=== PATIENT | female | born 1990 | race Caucasian/White ===

== ENCOUNTER 2017-10-22 13:34 | Emergency (ER) | payer OTHER ==
[~2017-10-22] VITALS: Ht 177.8 cm; Wt 140.6 kg
[~2017-10-22 13:34] MED LIST: IRON325 M1 PO; LEVOXYL75 MCG PO
[2017-10-22] MEDS ORDERED: CYCLOBENZAPRINE10 MG PO (13:51)
== END 2017-10-22 15:13 | disposition home or self-care (01) ==
LOC: ED 13:34
DX: S06.0X0A Concussion without loss of consciousness, initial encounter (principal); S16.1XXA Strain of muscle, fascia and tendon at neck level, initial encounter; E03.9 Hypothyroidism, unspecified; Z90.89 Acquired absence of other organs; Z88.5 Allergy status to narcotic agent; Z79.899 Other long term (current) drug therapy; V49.9XXA Car occupant (driver) (passenger) injured in unspecified traffic accident, initial encounter; Y92.69 Other specified industrial and construction area as the place of occurrence of the external cause; Y99.0 Civilian activity done for income or pay
CPT/HCPCS: 70450; 72040; 99284

== ENCOUNTER 2018-05-31 07:49 | Emergency (ER) | payer OTHER ==
[~2018-05-31] VITALS: Ht 177.8 cm; Wt 145.2 kg
--- OUTSIDE RECORDS SUMMARY | ~2018-05-31 | XMS | Encounter Summary ---
Demographics + + + | Address | [address] | | | [place] [address] | + + + | Home Phone | | + + + | Preferred Language | Unknown | + + + | Marital Status | Single | + + + | Baptism Affiliation | Unknown | + + + | Race | Unknown | + + + | Ethnic Group | Unknown | + + + Author + + + | Author | [facility] | | | and [place] | + + + | Organization | [facility] | | | and [place] | + + + | Address | Unknown | + + + | Phone | Unavailable | + + + Support + + + + + | Name | Relationship | Address | Phone | + + + + + | Evelyn Suh | ECON | [place] | | + + + + + Care Team Providers + +------+ + | Care Filter Changing Technician Name | Role | Phone | + +------+ + | Erika Ernst DO | PCP | Unavailable | + +------+ + Reason for Visit + + + | Reason | Comments | + + + | Lab Results | | + + + Encounter Details +--------+ + + + + | Date | Type | Department | Care Team | Description | +--------+ + + + + | 03/15/ | Telephone | [facility] | Veronica Huerta, | Lab Results | | 2018 | | [facility] | BUSINESS PROCESS SPECIALIST | | | | | [facility] [address] [place], | | | | | | [place] [address] | | | | | | [phone] | | | +--------+ + + + + Social History + +-------+ +--------+------+ | Tobacco Use | Types | Packs/Day | Years | Date | | | | | Used | | + +-------+ +--------+------+ | Never Smoker | | | | | + +-------+ +--------+------+ + +---+---+---+ | Smokeless Tobacco: | | | | | Never Used | | | | + +---+---+---+ + + +---------+ + | Alcohol Use | Drinks/We | oz/Week | Comments | | | ek | | | + + +---------+ + | No | | | | + + +---------+ + + + + | Sex Assigned at | Date Recorded | | | | + + + | Not on file | | + + + as of this encounter Plan of Treatment +--------+---------+ + + + | Date | Type | Specialty | Care Team | Description | +--------+---------+ + + + | 06/06/ | Office | Primary Care | Erika Ernst, | | | 2017 | Visit | | DO [address] [place] | | | | | | [place] [address] | | | | | | [phone] | | | | | | | | +--------+---------+ + + + | 06/27/ | Office | Primary Care | Erika Ernst, | | | 2017 | Visit | | DO [address] [place] [address] | | | | | | [place] [address] | | | | | | [phone] | | | | | | | | +--------+---------+ + + + as of this encounter Visit Diagnoses Not on filein this encounter"
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
--- OUTSIDE RECORDS SUMMARY | ~2018-05-31 | XMS | Encounter Summary ---
Demographics + + + | Address | [address] | | | [place] [address] | + + + | Home Phone [...] + + + | Author | [facility] | | | and [place] | + + + | Organization | [facility] | | [...] Team Providers + +------+ + | Care Ticket Manager Name | Role | Phone | + +------+ + | Erika Ernst DO | PCP | Unavailable | + +------+ + Reason for Visit + + + | Reason | Comments | + + + | Follow-up | cough | + + + Encounter Details +--------+---------+ + + + | Date | Type | Department | Care Team | Description | +--------+---------+ + + + | 05/16/ | Office | [facility] | Erika Ernst, | Asthma due to | | 2018 | Visit | [facility] | DO [address] | environmental | | | | [facility] | [facility] [address] | allergies (Primary | | | | [address] [place], | [phone] | Dx); Nausea | | | | [place] [address] | | | | | | [phone] | | | +--------+---------+ + + + [...] + + + | Blood Pressure | 140/98 | 05/16/2018 0802 PDT | + + + + | Pulse | 77 | 05/16/2018801 PDT | + + + + | Temperature | 36.3 C (97.4 F) | 05/16/2018801 PDT | + + + + | Respiratory Rate | 16 | 05/16/2018801 PDT | + + + + | Oxygen Saturation | 100% | 05/16/2018801 PDT | + + + + | Inhaled Oxygen | - | - | | Concentration | | | + + + + | Weight | 166.5 kg (367 lb) | 05/16/2018801 PDT | + + + + | Height | 177.8 cm (5' 10") | 05/16/2018 0802 PDT | + + + + | Body Mass Index | 52.66 | 05/16/2018 0802 PDT | + + + + in this encounter Progress Notes Erika Ernst DO - 05/16/2018 0800 PDTFormatting of this note may be different from the original. Subjective: Patient ID: Andrea Suh is a 28 y.o. female. Here to FU on her recent bronchitis. States she feels like she cleared the infection but th [place] really bothering her asthma. She states the prednisone we did recently did help. We tried increasing the dose on her steroid inhaler but it made her fee l nauseated. She states she does not think she is but she is not sure and the nause a could have been from something other than the inhaler. She agrees to test to be sure. She has some increase in the BP today but just had a coughing episode; we will monitor . States the cough is non-productive and infrequent, it is mostly her intermittent wheeze fr om the smoke that is the issue. Pox 100% Review of Systems Constitutional: Negative. HENT: Negative. Eyes: Negative. Respiratory: Positive for wheezing. Cardiovascular: Negative. Gastrointestinal: Nausea with inhaler use as above Skin: Negative. Allergic/Immunologic: Positive for environmental allergies. Social History Social History Marital status: Single Spouse name: N/A Number of children: N/A Years of education: N/A Occupational History Not on file. Social History Main Topics Smoking status: Never Smoker Smokeless tobacco: Never Used Alcohol use No Drug use: No Sexual activity: Yes Other Topics Concern Not on file Social History Narrative No narrative on file Outpatient Encounter Prescriptions as of 05/16/2018 Medication Sig Dispense Refill amLODIPine (NORVASC) 5 mg tablet Take 1 tablet by mouth Daily. 30 tablet 11 azithromycin (ZITHROMAX) 500 MG tablet Take 500 mg daily x 7 days 7 tablet 0 beclomethasone (QVAR) 80 mcg/puff inhaler Inhale 1 puff into the lungs 2 times daily. 1 Inhaler 11 Cholecalciferol (VITAMIN D3) 10669 units TABS Take 1 tablet by mouth Once a week for 16 doses. 16 tablet 0 ferrous sulfate 325 mg tablet Take by mouth. fexofenadine (JOSÉ ANTONIO ALLERGY) 180 mg tablet Take by mouth. montelukast (SINGULAIR) 10 mg tablet Take by mouth. predniSONE (DELTASONE) 10 mg tablet Take by mouth 6 tablets (60 mg) days 1-5; then 4 ta blets (40 mg) on day 6; then 3 tablets (30 mg) on day 7; then 2 tablets (20 mg) on day 8; th en 1 tablet (10 mg) on day 9; and 1/2 tablet (5 mg) on day 10 then stop 41 tablet 0 [DISCONTINUED] predniSONE (DELTASONE) 10 mg tablet Take by mouth 6 tablets (60 mg) days 1-5; then 4 tablets (40 mg) on day 6; then 3 tablets (30 mg) on day 7; then 2 tablets (20 m g) on day 8; then 1 tablet (10 mg) on day 9; and 1/2 tablet (5 mg) on day 10 then stop 41 ta blet 0 VENTOLIN HFA 108 (90 Base) MCG/ACT inhaler INSTILL 2 PUFFS BY MOUTH EVERY 4 TO 6 HOURS NEEDED 18 g 11 No facility-administered encounter medications on file as of 05/16/2018. Allergies Allergen Reactions Latex Rash Hydrocodone Hives Uncoded Nonscreenable Allergen Other (See Comments) Other reaction(s): Proclivity to C-diff with certain antibiotics Adhesive & Tape Rash Objective: BP (!) 140/98 | Pulse 77 | Temp 36.3 C (97.4 F) (Temporal) | Resp 16 | Ht 1.778 m ( 5' 10") | Wt (!) 166.5 kg (367 lb) | LMP (LMP Unknown) | SpO2 100% | ? No | BMI 52.66 kg/m Physical Exam Constitutional: She is oriented to person, place, and time. She appears well-developed and well-nourished. No distress. HENT: Head: Normocephalic and atraumatic. Right Ear: External ear normal. Left Ear: External ear normal. Mouth/Throat: Oropharynx is clear and moist. Bilateral TM's clear Eyes: Pupils are equal, round, [...] normal. No respiratory distress. She has wheezes. Exp wheeze soft Musculoskeletal: She exhibits no edema. Lymphadenopathy: She has no cervical adenopathy. Neurological: She is alert and oriented to person, place, and time. Skin: Skin is warm and dry. No rash noted. Psychiatric: She has a normal mood and affect. Her behavior is normal. Judgment and thought content normal. Assessment: 1. Asthma due to environmental allergies 2. Nausea , Urine, Qual Plan: Urine test though the nausea most likely from the inhaler. She will continue the lower dose qvar and continue her rescue inhaler and we will do another round of oral steroid . in this encounter Plan of Treatment +--------+---------+ + + + | Date | Type | Specialty | Care Team | Description | +--------+---------+ + + + | 06/06/ | Office | Primary Care | Erika Ernst, | | | 2017 | Visit | | DO [address] | | | | | | [place] [address] | | | | | | [phone] | | | | | | | | +--------+---------+ + + + | 06/27/ | Office | Primary Care | Erika Ernst, | | | 2017 | Visit | | DO [address] | | | | | | [place] [address] | | | | | | [phone] | | | | | | | | +--------+---------+ + + + as of this encounter Results , Urine, Qual (05/16/2018 0832) + + + + + | Component | Value | Ref Range | Performed At | + + + + + | HCG SCREEN, URINE | Negative | Negative | [facility] | | | | | [facility] | | | | | [facility] | | | | | [facility] | | | | | LAB | + + + + + + + | Specimen | + + | Urine | + + + + + + + | Performing | Address | City/State/Zipcode | Phone Number | | Organization | | | | + + + + + | [facility] | [address] [place] [address] | [place] [address] | [phone] | | [facility] | | | | | [facility] | | | | + + + + + in this encounter Visit Diagnoses + + | Diagnosis | + + | Asthma due to environmental allergies - Primary | + + | Nausea | + + | Nausea alone | + +
--- OUTSIDE RECORDS SUMMARY | ~2018-05-31 | XMS | Encounter Summary ---
Demographics + + + | Address | [address] | | | [place] [address] | + + + | Home Phone [...] + + + | Author | [facility] | | | and [place] | + + + | Organization | [facility] | | | [...] Team Providers + +------+ + | Care Grinding Machine Operator Name | Role | Phone [...] + + + + | 03/20/ | Telephone | [facility] | Veronica Huerta, | Lab Results | | 2018 | | [facility] | STUDENT MINISTRY PASTOR | | | | | [facility] [address] | | | | | | [address] [place], | | | | | | [place] [address] | | | | | | [phone] | | | +--------+ + + + [...] | | | | | [place] [address] | | | | | | [phone] | | | | | | | | +--------+---------+ + + + | 06/27/ | Office | Primary Care | Erika Ernst, | | | 2017 | Visit | | DO [address] [place] [address] | | | | | | [place] [address] | | | | | | [phone] | | | | | | | | +--------+---------+ + + + as of this encounter Visit Diagnoses Not on filein this encounter"
--- OUTSIDE RECORDS SUMMARY | ~2018-05-31 | XMS | Encounter Summary ---
Demographics + + + | Address | [address] | | | [place] [address] | + + + | Home Phone [...] + | Evelyn Suh | ECON | [place] | | + + + + + Care Team Providers + +------+ + | Care Upholstery Department Supervisor Name | Role | Phone | + +------+ + | Erika Ernst DO | PCP | Unavailable | + +------+ + Encounter Details +--------+ + + + + | Date | Type | Department | Care Team | Description | +--------+ + + + + | 03/14/ | [facility] | [facility] | Erika Ernst, | Right foot pain | | 2018 | Encounter | [facility] | DO [address] | | | | | [address] | [place] [address] | | | | | [place] | [phone] | | | | | [address] | | | | | | [phone] | | | +--------+ + + + [...] + + + as of this encounter Medications at Time of Discharge + + +--------+---------+ + + | Medication | Sig. | Disp. | Refills | Start | End Date | | | | | | Date | | + + +--------+---------+ + + | ferrous sulfate | Take by mouth. | | | 06/30/20 | | | 325 mg tablet | | | | 17 | | + + +--------+---------+ + + | fexofenadine | Take by mouth. | | | 04/08/20 | | | (JOSÉ ANTONIO ALLERGY) | | | | 17 | | | 180 mg tablet | | | | | | + + +--------+---------+ + + | montelukast | Take by mouth. | | | 02/24/20 | | | (SINGULAIR) 10 mg | | | | 17 | | | tablet | | | | | | + + +--------+---------+ + + | albuterol (PROAIR | Inhale into the | | | 10/12/19 | | | HFA) 90 mcg/puff | lungs. | | | 17 | 8 | | inhaler | | | | | | + + +--------+---------+ + + | ipratropium | Inhale into the | | | 12/18/19 | | | (ATROVENT HFA) 17 | lungs. | | | 17 | 8 | | mcg/puff inhaler | | | | | | + + +--------+---------+ + + | levothyroxine | Take by mouth. | | | 10/13/19 | | | (SYNTHROID) 75 MCG | | | | 17 | 8 | | tablet | | | | | | + + +--------+---------+ + + | lisinopril | Take 1 tablet by | 30 | 11 | 03/02/20 | | | (PRINIVIL, ZESTRIL) | mouth Daily. | tablet | | 18 | 8 | | 10 mg tablet | | | | | | + + +--------+---------+ + + as of this encounter Plan of Treatment +--------+---------+ + + + | Date | Type | Specialty | Care Team | Description | +--------+---------+ + + + | 06/06/ | Office | Primary Care | Erika Ernst, | | | 2017 | Visit | | DO [address] | | | | | | [place] [address] | | | | | | [phone] | | | | | | | | +--------+---------+ + + + | 06/27/ | Office | Primary Care | Erika Ernst, | | | 2017 | Visit | | DO [address] | | | | | | [place] [address] | | | | | | [phone] | | | | | | | | +--------+---------+ + + + as of this encounter Procedures + +--------+ + + + | Procedure Name | Priori | Date/Time | Associated Diagnosis | Comments | | | ty | | | | + +--------+ + + + | XR FOOT RIGHT 2 VW | Routin | 03/14/2018 | Right foot pain | Results for this | | | e | 1604 PDT | | procedure are in the | | | | | | results section. | + +--------+ + + + in this encounter Results XR Foot Right [...] of the medial foot. Age appropriate bone rn examiner al density. | | | |IMPRESSION: [...] | | | + +---------+ + + in this encounter Visit Diagnoses + + | Diagnosis | + + | Right foot pain | + + | Pain in limb | + +"
--- OUTSIDE RECORDS SUMMARY | ~2018-05-31 | XMS | Encounter Summary ---
Demographics + + + | Address | [address] | | | [place] [address] | + + + | Home Phone [...] Team Providers + +------+ + | Care Cisco Certified Network Professional Name | Role | Phone | + +------+ + | Erika Ernst DO | PCP | Unavailable | + +------+ + Reason for Visit +--------+ + | Reason | Comments | +--------+ + | Other | regarding Workmans Comp | +--------+ + Encounter Details +--------+ + + + + | Date | Type | Department | Care Team | Description | +--------+ + + + + | 03/15/ | Telephone | [facility] | Erika Ernst, | Other (regarding | | 2018 | | [facility] | DO [address] | Workmans Comp) | | | | MEDICAL [facility] [address] | [place] [address] | | | | | [address] [place], | [phone] | | | | | [place] [address] | | | | | | [phone] | | | +--------+ + + + [...] | | | | | [place] [address] | | | | | | [phone] | | | | | | | | +--------+---------+ + + + | 06/27/ | Office | Primary Care | Erika Ernst, | | | 2017 | Visit | | DO [address] | | | | | | [place] [address] | | | | | | [phone] | | | | | | | | +--------+---------+ + + + as of this encounter Visit Diagnoses Not on filein this encounter"
--- OUTSIDE RECORDS SUMMARY | ~2018-05-31 | XMS | Encounter Summary ---
Demographics + + + | Address | [address] | | | [place] [address] | + + + | Home Phone [...] Team Providers + +------+ + | Care Boat Captain Name | Role | Phone | + [...] + + | Authorized | Specialty | Behavioral | Diagnoses | [facility] | | | Services | Health | PTSD | Erika Salter DO | [facility] & | | | Required | | (post-trauma | [address] | [place] | | | | | tic stress | [place], | [place] | | | | | disorder) | [place] [address] | [address] | | | | | Anxiety | Phone: | [place], [place] | | | | | | [phone] | [address] | | | | | | Fax: | Phone: | | | | | | [phone] | [phone] | | | | | | | Fax: | | | | | | | [phone] | + + + + + + + Reason for Visit +--------+ + | Reason | Comments | +--------+ + | Other | wants [employer] paperwork to give her job | +--------+ + Encounter Details +--------+---------+ + + + | Date | Type | Department | Care Team | Description | +--------+---------+ + + + | 05/29/ | Office | [facility] | Erika Ernst, | Asthma due to | | 2017 | Visit | [facility] | DO [address] | environmental | | | | [facility]ICAL [facility] [address] | [facility] [place] [address] | allergies (Primary | | | | [address] [place], | [phone] | Dx); PTSD | | | | [place] [address] | | (post-traumatic | | | | [phone] | | stress disorder); | | | [...] + | Blood Pressure | 130/90 | 05/29/20181508 PDT | + + + + | Pulse | 80 | 05/29/20181508 PDT | + + + + | Temperature | - | - | + + + + | Respiratory Rate | 16 | 05/29/20181508 PDT | + + + + | Oxygen Saturation | 98% | 05/29/20181508 PDT | + + + + | Inhaled Oxygen | - | - | | Concentration | | | + + + + | Weight | 166.5 kg (367 lb) | 05/29/2018 1509 PDT | + + + + | Height | 167.6 cm (5' 6") | 05/29/2018 1509 PDT | + + + + | Body Mass Index | 59.24 | 05/29/2018 1509 PDT | + + + + in this encounter Progress Notes Erika Ernst DO - 05/29/2018 1500 PDTFormatting of this note may be different [...] and was better but now with work s jourdan needs to start with a therapist again. She states the therapist she was seeing in [facility] [place] has moved. We will refer her to Radha Lamb her in [place]. She states anxiety has bee n a [...] daily. 30 tablet 0 Cholecalciferol (VITAMIN D3) 22799 units TABS Take 1 tablet by mouth [...] one week. Referral to Radha Lamb at [facility] for mental health therapy. in this encounter Plan of Treatment +--------+---------+ + + + | Date | Type | Specialty | Care Team | Description | +--------+---------+ + + + | 06/06/ | Office | Primary Care | Erika Ernst, | | | 2017 | Visit | | DO [address] | | | | | | [place], [place] [address] | | | | | | [phone] | | | | | | | | +--------+---------+ + + + | 06/27/ | Office | Primary Care | Erika Ernst, | | | 2017 | Visit | | DO [address] | | | | | | [place] [address] | | | | | | [phone] | | | | | | | | +--------+---------+ + + + + +--------+ + + | Name | Priori | Associated Diagnoses | Order Schedule | | | ty | | | + +--------+ + + | Behavioral Health, External - AMB | Routin | PTSD | Ordered: 05/29/2018 | | Referral | e | (post-traumatic | | | | | stress disorder) | | | | | Anxiety | | + +--------+ + + as of this encounter Visit Diagnoses + + | Diagnosis | + + | Asthma due to environmental allergies - Primary | + + | PTSD (post-traumatic stress disorder) | + + | Posttraumatic stress disorder | + + | Anxiety | + + | Anxiety state, unspecified | + +
--- OUTSIDE RECORDS SUMMARY | ~2018-05-31 | XMS | Encounter Summary ---
Demographics + + + | Address | [address] | | | [place] [address] | + + + | Home Phone [...] Team Providers + +------+ + | Care Frozen Yogurt Maker Name | Role | Phone | [...] | +--------+ + + + + | 05/16/ | Telephone | [facility] [facility] | Veronica Huerta, | Lab Results | | 2018 | | [facility] | HVAC CONTROLS TECHNICIAN | | | | | MEDICAL CLINIC [address] | | | | | | [address] [place], | | | | | | [place] [address] | | | | | | [phone] | | | +--------+ + + + [...] | | | | | [place] [address] | | | | | | [phone] | | | | | | | | +--------+---------+ + + + | 06/27/ | Office | Primary Care | Erika Ernst, | | | 2017 | Visit | | DO [address] [place] [address] | | | | | | [place] [address] | | | | | | [phone] | | | | | | | | +--------+---------+ + + + as of this encounter Visit Diagnoses Not on filein this encounter"
--- OUTSIDE RECORDS SUMMARY | ~2018-05-31 | XMS | Encounter Summary ---
Demographics + + + | Address | [address] | | | [place] [address] | + + + | Home Phone [...] Providers + +------+ + | Care Power House Control Room Operator Name | Role | Phone | [...] | | | MEDICAL CLIN[facility] [address] | [place] [address] | allergies (Primary | | | | [address] [place], | [phone] | Dx); Nausea | | | | [place] [address] | | | | | | [phone] | | | +--------+---------+ + + + [...] daily. 1 Inhaler 11 Cholecalciferol (VITAMIN D3) 71562 units TABS Take 1 tablet by mouth [...] | | | | | [place] [address] | | | | | | [phone] | | | | | | | | +--------+---------+ + + + | 06/27/ | Office | Primary Care | Erika Ernst, | | | 2017 | Visit | | DO [address] | | | | | | [place] [address] | | | | | | [phone] | | | | | | | [...] | REGIONAL | | | | | [facility] | | | | | LAB | + + + + + + + | Specimen | + + | Urine | + + + + + + + | Performing | Address | City/State/Zipcode | Phone Number | | Organization | | | | + + + + + | [facility] | [address] [place] [address] | [place] [address] | [phone] | | [facility] | | | | | [facility] | | | | + + + + + in this encounter Visit Diagnoses + + | Diagnosis | + + | Asthma due to environmental allergies - Primary | + + | Nausea | + + | Nausea alone | + +
--- OUTSIDE RECORDS SUMMARY | ~2018-05-31 | XMS | Encounter Summary ---
Demographics + + + | Address | [address] | | | [place] [address] | + + + | Home Phone [...] | + + + + + | aCrol Suhhy | ECON | [place] | | + + + + + Care Team Providers + +------+ + | Care It Engineer Name | Role | Phone | [...] | | | | disorder) | [place] [address] | [address] | | | | | Anxiety | Phone: | [place], [place] | | | | | | [phone] | [address] | | | | | | Fax: | Phone: | | | | | | [phone] | [phone] | | | | | | | Fax: | | | | | | | [phone] | + + + + + + [...] | | | MEDICAL CLINIC [address] | [facility] [place] [address] | allergies (Primary | | | | [address] [place], | [phone] | Dx); PTSD | | | | [place] [address] | | (post-traumatic | | | | [phone] | | stress disorder); | | | [...] states the therapist she was seeing in [facility] o has moved. We will refer her to Radha Lamb her in [place]. She states anxiety has bee n a [...] daily. 30 tablet 0 Cholecalciferol (VITAMIN D3) 38185 units TABS Take 1 tablet by mouth [...] one week. Referral to Radha Lamb at [facility] for mental health therapy. in this encounter Plan of Treatment +--------+---------+ + + + | Date | Type | Specialty | Care Team | Description | +--------+---------+ + + + | 06/06/ | Office | Primary Care | Erika Ernst, | | | 2017 | Visit | | DO [address] | | | | | | [place], [place] [address] | | | | | | [phone] | | | | | | | | +--------+---------+ + + + | 06/27/ | Office | Primary Care | Erika Ernst, | | | 2017 | Visit | | DO [address] | | | | | | [place] [address] | | | | | | [phone] | | | | | | | [...]
--- OUTSIDE RECORDS SUMMARY | ~2018-05-31 | XMS | Encounter Summary ---
Demographics + + + | Address | [address] | | | [place] [address] | + + + | Home Phone [...] Providers + +------+ + | Care Certified Diabetes Educator Name | Role | Phone | [...] 05/09/ | Office | [facility] [facility] | Erika Ernst, | Acute bronchitis, | | 2018 | Visit | [facility] | DO [address] | unspecified organism | | | | MEDICAL CLINIC [address] | [place] [address] | (Primary Dx); | | | | [address] [place], | [phone] | Asthma due to | | | | [place] [address] | | environmental | | | | [phone] | | allergies | +--------+---------+ + + [...] | Blood Pressure | 144/80 | 05/09/2018 1442 PDT | + + + + | Pulse | 72 | 05/09/20181441 PDT | + + + + | Temperature | 36.7 C (98 F) | 05/09/20181441 PDT | + + + + | Respiratory Rate | 16 | 05/09/20181441 PDT | + + + + | Oxygen Saturation | 98% | 05/09/20181441 PDT | + + + + | Inhaled Oxygen | - | - | | Concentration | | | + + + + | Weight | 166.5 kg (367 lb) | 05/09/20181441 PDT | + + + + | Height | 177.8 cm (5' 10") | 05/09/2018 1442 PDT | + + + + | Body Mass Index | 52.66 | 05/09/2018 1442 PDT | + + + + in this encounter Progress Notes Erika Ernst DO - 05/09/2018 1430 PDTFormatting of this note may be different [...] daily. 1 Inhaler 11 Cholecalciferol (VITAMIN D3) 38120 units TABS Take 1 tablet by mouth [...] continue inhalers and take in extra fluids. in this encounter Plan of Treatment +--------+---------+ + + + | Date | Type | Specialty | Care Team | Description | +--------+---------+ + + + | 06/06/ | Office | Primary Care | Erika Ernst, | | | 2017 | Visit | | DO [address] | | | | | | [place] [address] | | | | | | [phone] | | | | | | | | +--------+---------+ + + + | 06/27/ | Office | Primary Care | Erika Ernst, | | | 2017 | Visit | | DO [address] | | | | | | [place] [address] | | | | | | [phone] | | | | | | | | +--------+---------+ + + + as of this encounter Visit Diagnoses + + | Diagnosis | + + | Acute bronchitis, unspecified organism - Primary | + + | Asthma due to environmental allergies | + +
--- OUTSIDE RECORDS SUMMARY | ~2018-05-31 | XMS | Encounter Summary ---
Demographics + + + | Address | [address] | | | [place] [address] | + + + | Home Phone | | + + + | Preferred Language | Unknown | + + + | Marital Status | Single | + + + | Catholic Affiliation | Unknown | + + + | Race | Unknown | + + + | Ethnic Group | Unknown | + + + Author + + + | Author | [facility] | | | and [place] | + + + | Organization | [facility] | | | [...] Providers + +------+ + | Care Hotel Desk Clerk Name | Role | Phone | [...] | Podiatry | Diagnoses | Klever, | Alexandru | | | Services | | Chronic | Erika Salter DO | Iain | | | Required | | pain in | [address] | Javier, DPM | | | | | right foot | [place], | [address] | | | | | | [place] [address] | ST [place] | | | | | | Phone: | [place], [place] | | | | | | [phone] | [address] Phone: | | | | | | Fax: | [phone] | | | | | | [phone] | Fax: | | | | | | | [phone] | + + + + + + [...] | [facility] | [place] [address] | (Primary Dx); PTSD | | | | [address] [place], | [phone] | (post-traumatic | | | | [place] [address] | | stress disorder); | | | | [phone] | | Encounter for | | | [...] + | Blood Pressure | 154/98 | 03/19/20181123 PDT | + + + + | Pulse | 90 | 03/19/20181123 PDT | + + + + | Temperature | 36.5 C (97.7 F) | 03/19/20181123 PDT | + + + + | Respiratory Rate | 16 | 03/19/20181123 PDT | + + + + | Oxygen Saturation | 97% | 03/19/20181123 PDT | + + + + | Inhaled Oxygen | - | - | | Concentration | | | + + + + | Weight | 173.9 kg (383 lb 6.4 | 03/19/2018 1124 PDT | | | oz) | | + + + + | Height | 177.8 cm (5' 10") | 03/19/2018 1124 PDT | + + + + | Body Mass Index | 55.01 | 03/19/2018 1124 PDT | + + + + in this encounter Progress Notes Erika Ernst DO - 03/19/2018 1130 PDTFormatting of this note may be different [...] cough syrup for the sinus and cough. in this encounter Plan of Treatment +--------+---------+ + + + | Date | Type | Specialty | Care Team | Description | +--------+---------+ + + + | 06/06/ | Office | Primary Care | Erika Ernst, | | | 2017 | Visit | | DO [address] [place] | | | | | | [place] [address] | | | | | | [phone] | | | | | | | | +--------+---------+ + + + | 06/27/ | Office | Primary Care | Erika Ernst, | | | 2017 | Visit | | DO [address] [place] | | | | | | [place] [address] | | | | | | [phone] | | | | | | | | +--------+---------+ + + + + +--------+ + + | Name | Priori | Associated Diagnoses | Order Schedule | | | ty | | | + +--------+ + + | Podiatry, External - AMB Referral | Routin | Chronic pain in | Ordered: 03/19/2018 | | | e | right foot | | + +--------+ + + as of this encounter Procedures + +--------+ + + + | Procedure Name | Priori | Date/Time | Associated Diagnosis | Comments | | | ty | | | | + +--------+ + + + | VITAMIN D, | Routin | 03/19/2018 | PTSD | Results for this | | DEFICIENCY SCREEN | e | 1146 PDT | (post-traumatic | procedure are in the | | (25-HYDROXY) | | | stress disorder) | results section. | | | | | Encounter for | | | | | | vitamin deficiency | | | | | | screening | | + +--------+ + + + in this encounter Results Vitamin D, Deficiency Screen (25-Hydroxy) (03/19/2018 1146) + +--------+ + + | Component | Value | Ref Range | Performed At | + +--------+ + + | Vitamin D, 25 | 21 (L) | 30 - 100 ng/mL | [facility] | | Hydroxy | | | [facility]OSPITAL | | | | | LAB[facility]ATORY | + +--------+ + + + + | Specimen | + + | Blood | + + + + + + + | Performing | Address | City/State/Zipcode | Phone Number | | Organization | | | | + + + + + | [place] [facility] | [address] | [place] [address] | [phone] | | [facility] | | | | + + + + + in this encounter Visit Diagnoses + + | Diagnosis | + + | Essential hypertension - Primary | + + | Unspecified essential hypertension | + + | PTSD (post-traumatic stress disorder) | + + | Posttraumatic stress disorder | + + | Encounter for vitamin deficiency screening | + + | Screening for other and unspecified endocrine, nutritional, metabolic, and immunity | | disorders | + + | Chronic pain in right foot | + + | Pain in limb | + + | Acute maxillary sinusitis, recurrence not specified | + + | Cough | + +
--- OUTSIDE RECORDS SUMMARY | ~2018-05-31 | XMS | Encounter Summary ---
Demographics + + + | Address | [address] | | | [place] [address] | + + + | Home Phone [...] Team Providers + +------+ + | Care Rack Maker Name | Role | Phone | [...] 03/05/ | Telephone | [facility] [facility] | Erika Ernst, | Other | | 2018 | | [facility] | [address] | | | | | MEDICAL [facility] [address] | [place] [address] | | | | | [address] [place], | [phone] | | | | | [place] [address] | | | | | | [phone] | | | +--------+ + + + [...] | | | | | [place] [address] | | | | | | [phone] | | | | | | | | +--------+---------+ + + + | 06/27/ | Office | Primary Care | Erika Ernst, | | | 2017 | Visit | | DO [address] [place] [address] | | | | | | [place] [address] | | | | | | [phone] | | | | | | | | +--------+---------+ + + + as of this encounter Visit Diagnoses Not on filein this encounter"
--- OUTSIDE RECORDS SUMMARY | ~2018-05-31 | XMS | Encounter Summary ---
Demographics + + + | Address | [address] | | | [place] [address] | + + + | Home Phone [...] Team Providers + +------+ + | Care Refinery Operator Helper Name | Role | Phone [...] | [facility] [address] | [place] [address] | (Primary Dx); | | | | [address] [place], | [phone] | Environmental | | | | [place] [address] | | allergies; Vitamin D | | | | [phone] | | deficiency | +--------+---------+ + + [...] | Blood Pressure | 140/82 | 04/02/2018 1308 PDT | + + + + | Pulse | 79 | 04/02/20181307 PDT | + + + + | Temperature | - | - | + + + + | Respiratory Rate | 16 | 04/02/20181307 PDT | + + + + | Oxygen Saturation | 94% | 04/02/20181307 PDT | + + + + | Inhaled Oxygen | - | - | | Concentration | | | + + + + | Weight | 172.4 kg (380 lb) | 04/02/20181307 PDT | + + + + | Height | 177.8 cm (5' 10") | 04/02/2018 1308 PDT | + + + + | Body Mass Index | 54.52 | 04/02/2018 1308 PDT | + + + + in this encounter Progress Notes Erika Ernst, - 04/02/2018 1300 PDTFormatting of this note may be [...] day 6 tablet 0 Cholecalciferol (VITAMIN D3) 49893 units TABS Take 1 tablet by mouth [...] replacement. She will continue her diet efforts. in this encounter Plan of Treatment +--------+---------+ + + + | Date | Type | Specialty | Care Team | Description | +--------+---------+ + + + | 06/06/ | Office | Primary Care | Erika Ernst, | | | 2017 | Visit | | DO [address] [place] | | | | | | [place] [address] | | | | | | [phone] | | | | | | | | +--------+---------+ + + + | 06/27/ | Office | Primary Care | Erika Ernst, | | | 2017 | Visit | | DO [address] [place] | | | | | | [place] [address] | | | | | | [phone] | | | | | | | | +--------+---------+ + + + as of this encounter Visit Diagnoses + + | Diagnosis | + + | Essential hypertension - Primary | + + | Unspecified essential hypertension | + + | Environmental allergies | + + | Allergic rhinitis, cause unspecified | + + | Vitamin D deficiency | + + | Unspecified vitamin D deficiency | + +
--- OUTSIDE RECORDS SUMMARY | ~2018-05-31 | XMS | Encounter Summary ---
Demographics + + + | Address | [address] | | | [place] [address] | + + + | Home Phone [...] + | Evelyn Suh | ECON | [place] | | + + + + + Care Team Providers + +------+ + | Care Montessori Teacher Name | Role | Phone | [...] D deficiency | | 2018 | | [facility] | [address] | | | | | MEDICAL CLIN[facility] [address] | [place] [address] | | | | | [address] [place], | [phone] | | | | | [place] [address] | | | | | | [phone] | | | +--------+ + + + [...] 2017 | Visit | | DO [address] | | | | | | [place] [address] | | | | | | [phone] | | | | | | | | +--------+---------+ + + + | 06/27/ | Office | Primary Care | Erika Ernst, | | | 2017 | Visit | | DO [address] [place] | | | | | | [place] [address] | | | | | | [phone] | | | | | | | | +--------+---------+ + + + as of this encounter Visit Diagnoses + + | Diagnosis | + + | Vitamin D deficiency | + + | Unspecified vitamin D deficiency | + +"
--- OUTSIDE RECORDS SUMMARY | ~2018-05-31 | XMS | Encounter Summary ---
Demographics + + + | Address | [address] | | | [place] [address] | + + + | Home Phone [...] Team Providers + +------+ + | Care Duplicating Machine Mechanic Name | Role | Phone | [...] Medication Refill | | 2018 | | [facility] | DO [address] | | | | | MEDICAL CLIN[facility] [address] | [place] [address] | | | | | [address] [place], | [phone] | | | | | [place] [address] | | | | | | [phone] | | | +--------+ + + + [...] | | | | | [place] [address] | | | | | | [phone] | | | | | | | | +--------+---------+ + + + | 06/27/ | Office | Primary Care | Erika Ernst, | | | 2017 | Visit | | DO [address] [place] | | | | | | [place] [address] | | | | | | [phone] | | | | | | | | +--------+---------+ + + + as of this encounter Visit Diagnoses Not on filein this encounter"
--- OUTSIDE RECORDS SUMMARY | ~2018-05-31 | XMS | Encounter Summary ---
Demographics + + + | Address | [address] | | | [place] [address] | + + + | Home Phone [...] Team Providers + +------+ + | Care Machine Operator Transplanter Name | Role | Phone | + [...] + | 03/22/ | Telephone | [facility] [facility] | Erika Ernst, | Medication Question | | 2018 | | [facility] | DO [address] | | | | | MEDICAL CL[facility] [address] | [place] [address] | | | | | [address] [place], | [phone] | | | | | [place] [address] | | | | | | [phone] | | | +--------+ + + + [...] Description | +--------+---------+ + + + | 09// | Office | Primary Care | Erika Ernst, | | | 2017 | Visit | | DO [address] [place] | | | | | | [place] [address] | | | | | | [phone] | | | | | | | | +--------+---------+ + + + | 06/27/ | Office | Primary Care | Erika Ernst, | | | 2017 | Visit | | DO [address] [place] | | | | | | [place] [address] | | | | | | [phone] | | | | | | | | +--------+---------+ + + + as of this encounter Visit Diagnoses Not on filein this encounter"
--- OUTSIDE RECORDS SUMMARY | ~2018-05-31 | XMS | Encounter Summary ---
Demographics + + + | Address | [address] | | | [place] [address] | + + + | Home Phone [...] Team Providers + +------+ + | Care Functional Consultant Name | Role | Phone | [...] Medication Question | | 2018 | | [facility] | DO [address] | (medication is | | | | MEDICAL CLIN[facility] [address] | [place] [address] | making her nauseous. | | | | [address] [place], | [phone] | ) | | | | [place] [address] | | | | | | [phone] | | | +--------+ + + + [...] | | | | | [place] [address] | | | | | | [phone] | | | | | | | | +--------+---------+ + + + | 06/27/ | Office | Primary Care | Erika Ernst, | | | 2017 | Visit | | DO [address] [place] | | | | | | [place] [address] | | | | | | [phone] | | | | | | | | +--------+---------+ + + + as of this encounter Visit Diagnoses Not on filein this encounter"
--- OUTSIDE RECORDS SUMMARY | ~2018-05-31 | XMS | Encounter Summary ---
Demographics + + + | Address | [address] | | | [place] [address] | + + + | Home Phone [...] Providers + +------+ + | Care Tool Trouble Shooter Name | Role | Phone | + +------+ + | Erika Enrst DO | PCP | Unavailable | + [...] Paperwork | | 2018 | | [facility] | DO [address] | | | | | MEDICAL CLIN[facility] [address] | [place] [address] | | | | | [address] [place], | [phone] | | | | | [place] [address] | | | | | | [phone] | | | +--------+ + + + [...] | | | | | [place] [address] | | | | | | [phone] | | | | | | | | +--------+---------+ + + + | 06/27/ | Office | Primary Care | Erika Ernst, | | | 2017 | Visit | | DO [address] [place] [address] | | | | | | [place] [address] | | | | | | [phone] | | | | | | | | +--------+---------+ + + + as of this encounter Visit Diagnoses Not on filein this encounter"
--- OUTSIDE RECORDS SUMMARY | ~2018-05-31 | XMS | Encounter Summary ---
Demographics + + + | Address | [address] | | | [place] [address] | + + + | Home Phone [...] Providers + +------+ + | Care Manager Labor Relations Name | Role | Phone | + [...] [facility] | DO [address] [place] | Workmans Comp) | | | | MEDICAL [facility] [address] | [place] [address] | | | | | [address] [place], | [phone] | | | | | [place] [address] | | | | | | [phone] | | | +--------+ + + + [...] | | | | | [place] [address] | | | | | | [phone] | | | | | | | | +--------+---------+ + + + | 06/27/ | Office | Primary Care | Erika Ernst, | | | 2017 | Visit | | DO [address] [place] | | | | | | [place] [address] | | | | | | [phone] | | | | | | | | +--------+---------+ + + + as of this encounter Visit Diagnoses Not on filein this encounter"
--- OUTSIDE RECORDS SUMMARY | ~2018-05-31 | XMS | Encounter Summary ---
Demographics + + + | Address | [address] | | | [place] [address] | + + + | Home Phone [...] Team Providers + +------+ + | Care Jack Spinner Name | Role | Phone | + [...] | | | | disorder) | [place] [address] | | | | | | Chronic | Phone: | | | | | | midline low | [phone] | | | | | | back pain | Fax: | | | | | | without | [phone] | | | | | | sciatica [...] | MEDICAL CLIN[facility] [address] | [place] [address] | (Primary Dx); TMJ | | | | [address] [place], | [phone] | (temporomandibular | | | | [place] [address] | | joint disorder); | | | | [phone] | | Chronic midline low | | [...] ( she wants to do this in [place]) referral for TMJ and left hip and [...] | | | | | [place] [address] | | | | | | [phone] | | | | | | | | +--------+---------+ + + + | 06/27/ | Office | Primary Care | Erika Ernst, | | | 2017 | Visit | | DO [address] [place] | | | | | | [place] [address] | | | | | | [phone] | | | | | | | [...] of the medial foot. Age appropriate bone adjustment examiner al density. | | | |IMPRESSION: [...] + + | [facility] [facility] | [address] | [place] [address] | [phone] | | [facility] | | | [...] | | [facility] | | | mg/dL [id number] | | [facility] | | | - 129 mg/dL Near | | LAB | | | [id number] | | | | | [...] | [address] | [place] [address] | [phone] | | [facility] | | | [...] | REG[facility] | | | | | [facility] | | | | | LAB | + + + + + | Creatinine, | 0.75 | 0.70 - 1.40 mg/dL | [place] [facility] | | Serum/Plasma | | | HOSPITAL | | | | | REG[facility] | | | | | [facility] | | | | | LAB | + + + + + | eGFR if not | >60Comment: GLOMERULAR | >=60 mL/min/1.73m2 | [place] [facility] | | ITALIAN | FILTRATION | | HOSPITAL | | | RATE,ESTIMATED mL/min | | REGIONAL | | | /1.62q0Ixnr than 60 | | MEDICAL CENTER | [...] + + | [place] [facility] | [address] | [place] [address] | [phone] | | [facility] | | | | | [facility] | | | | + + [...]
--- OUTSIDE RECORDS SUMMARY | ~2018-05-31 | XMS | Encounter Summary ---
Demographics + + + | Address | [address] | | | [place] [address] | + + + | Home Phone [...] Team Providers + +------+ + | Care Sourcing Engineer Name | Role | Phone | [...] Refill | | 2017 | | [facility] | DO [address] | | | | | MEDICAL CLIN[facility] [address] | [place] [address] | | | | | [address] [place], | [phone] | | | | | [place] [address] | | | | | | [phone] | | | +--------+--------+ + + + [...] | | | | | [place] [address] | | | | | | [phone] | | | | | | | | +--------+---------+ + + + | 06/27/ | Office | Primary Care | Erika Ernst, | | | 2017 | Visit | | DO [address] | | | | | | [place] [address] | | | | | | [phone] | | | | | | | | +--------+---------+ + + + as of this encounter Visit Diagnoses Not on filein this encounter"
--- OUTSIDE RECORDS SUMMARY | ~2018-05-31 | XMS | Clinical Summary ---
Demographics + + + | Address | [address] | | | [place] [address] | + + + | Home Phone | | + + + | Preferred Language | Unknown | + + + | Marital Status | Single | + + + | Church Affiliation | Unknown | + + + | Race | Unknown | + + + | Ethnic Group | Unknown | + + + Author + + + | Author | [facility] | + + + | Organization | [facility] | + + + | Address | Unknown | + + + | Phone | Unavailable | + + + Support + + +---------+ + | Name | Relationship | Address | Phone | + + +---------+ + | Evelyn Suh | ECON | Unknown | | + + +---------+ + Care Team Providers + +------+ + | Care Steam Locomotive Firer/Fireman Name | Role | Phone | + +------+ + | Keith Ernsta | PP | | + +------+ + Allergies Not on File Current Medications Not on file Active Problems Not on file Encounters +--------+ + + + + | Date | Type | Specialty | Care Team | Description | +--------+ + + + + | 04/30/ | Documentati | | Eugenio Robles | Referral (2ND | | 2017 | on Only | | Referral Department | OPINION - - | | | | | | RIGHT HAND ) | +--------+ + + + + from Last 3 Months Social History + +-------+ +--------+------+ | Tobacco [...] on file | | + + + Plan of Treatment +--------+---------+ + + + | Date | Type | Specialty | Care Team | Description | +--------+---------+ + + + | 05/31/ | Office | | Jeffrey Gandhi, | | | 2017 | Visit | | [address] | | | | | | [place] [address] | | | | | | [phone] | | | | | | | | +--------+---------+ + + + Results Not on filefrom [...] - [place] | L&I - | [id number] | | | | | | [place] [...] | + +--------+ +--------+ + + | [id number] | Worker | Self | [birth year] | Work: | [address] | | | s Comp | | 1989 | +[address]- | [place] [address] | | | | | | [address]: | | | | | | | | | | | | | | +1- | | | | | | | [address] | | + +--------+ +--------+ + + | ANDREA VALADEZ | Person | Self | [birth year] | 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
--- OUTSIDE RECORDS SUMMARY | ~2018-05-31 | XMS | Clinical Summary ---
Demographics + + + | Address | [address] | | | [place] [address] | + + + | Home Phone | | + + + | Preferred Language | Unknown | + + + | Marital Status | Single | + + + | Cheondoism Affiliation | Unknown | + + + | Race | Unknown | + + + | Ethnic Group | Unknown | + + + Author + + + | Author | [facility] | + + + | Organization | [facility] | + + + | Address | Unknown | + + + | Phone | Unavailable | + + + Support + + +---------+ + | Name | Relationship | Address | Phone | + + +---------+ + | Evelyn Suh | ECON | Unknown | | + + +---------+ + Care Team Providers + +------+ + | Care State Assessed Properties Director Name | Role | Phone | [...] | | 2017 | Visit | | [address] | | | | | | [place] [address] | | | | | | [phone] | | | | | | | [...] - [place] | L&I - | [id number] | | | | | | [place] [...] | + +--------+ +--------+ + + | [id number] | Worker | Self | [birth year] | Work: | [address] | | | s Comp | | 1989 | +[address]76- | [place] [address] | | | | | | [address] [...] | 1989 | +[address]76- | [place] [address] | | | jayna | | | [address] Home: | | | | | | | | | | | | | | +1- | | | | | | | [address] | | + +--------+ +--------+ + +"
--- OUTSIDE RECORDS SUMMARY | ~2018-05-31 | XMS | Encounter Summary ---
Demographics + + + | Address | [address] | | | [place] [address] | + + + | Home Phone | | + + + | Preferred Language | Unknown | + + + | Marital Status | Single | + + + | Yarsani Affiliation | Unknown | + + + | Race | Unknown | + + + | Ethnic Group | Unknown | + + + Author + + + | Author | [facility] | + + + | Organization | [facility] | + + + | Address | Unknown | + + + | Phone | Unavailable | + + + Support + + +---------+ + | Name | Relationship | Address | Phone | + + +---------+ + | Evelyn Suh | ECON | Unknown | | + + +---------+ + Care Team Providers + +------+ + | Care Electric Motor Rebuilder Name | Role | Phone | + +------+ + PCP | Unavailable | + +------+ + Reason for Visit + + + | Reason | Comments | + + + | Referral | 2ND OPINION - - RIGHT HAND | + + + Encounter Details +--------+ + + + + | Date | Type | Department | Care Team | Description | +--------+ + + + + | 04/30/ | Documentati | [facility] | Lizarraga, Eugenio N[facility]sm | Referral (2ND | | 2018 | on Only | [facility] | Referral Department | OPINION - - | | | | MEDICINE CHRIS | [address] | RIGHT HAND ) | | | | [address] | [place] [address] | | | | | [place], [place] | [phone] | | | | | [address] | | | | | | [phone] | | | +--------+ + + + [...] + + | 05/31/ | Office | Orthopedic Surgery | Jeffrey Gandhi, | | | 2017 | Visit | | [address] | | | | | | [place] [address] | | | | | | [phone] | | | | | | | | +--------+---------+ + + + as of this encounter Visit Diagnoses Not on filein this encounter"
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
--- OUTSIDE RECORDS SUMMARY | ~2018-05-31 | XMS | Encounter Summary ---
Demographics + + + | Address | [address] | | | [place] [address] | + + + | Home Phone [...] Team Providers + +------+ + | Care Journeyman Sheet Metal Worker Name | Role | [...] + | 05/15/ | Telephone | [place] [facility] | Erika Ernst, | Bronchitis (symptoms | | 2018 | | [facility] | DO [address] | are worse) | | | | [facility] | [place] [address] | | | | | [address] [place], | [phone] | | | | | [place] [address] | | | | | | [phone] | | | +--------+ + + + [...] | | | | | [place] [address] | | | | | | [phone] | | | | | | | | +--------+---------+ + + + | 06/27/ | Office | Primary Care | Erika Ernst, | | | 2017 | Visit | | DO [address] | | | | | | [place] [address] | | | | | | [phone] | | | | | | | | +--------+---------+ + + + as of this encounter Visit Diagnoses Not on filein this encounter"
--- OUTSIDE RECORDS SUMMARY | ~2018-05-31 | XMS | Encounter Summary ---
Demographics + + + | Address | [address] | | | [place] [address] | + + + | Home Phone | | + + + | Preferred Language | Unknown | + + + | Marital Status | Single | + + + | Mormonism Affiliation | Unknown | + + + | Race | Unknown | + + + | Ethnic Group | Unknown | + + + Author + + + | Author | [facility] [employer] | + + + | Organization | [facility] | + + + | Address | Unknown | + + + | Phone | Unavailable | + + + Support + + +---------+ + | Name | Relationship | Address | Phone | + + +---------+ + | Evelyn Suh | ECON | Unknown | | + + +---------+ + Care Team Providers + +------+ + | Care Culinary Director Name | Role | Phone | [...] + + | 04/30/ | Documentati | [facility] | Lizarraga, Eugenio N[facility] | Referral (2ND | | 2018 | on Only | [facility] | Referral Department | OPINION - - | | | | MEDICINE CHRIS | [address] | RIGHT HAND ) | | | | [address] | [place] [address] | | | | | [place], [place] | [phone] | | | | | [address] | | | | | | [phone] | | | +--------+ + + + [...] MOORE | | | | | | [place] [address] | | | | | | [phone] | | | | | | | | +--------+---------+ + + + as of this encounter Visit Diagnoses Not on filein this encounter"
--- OUTSIDE RECORDS SUMMARY | ~2018-05-31 | XMS | Encounter Summary ---
Demographics + + + | Address | [address] | | | [place] [address] | + + + | Home Phone [...] Providers + +------+ + | Care Wood Calker Name | Role | Phone | + [...] | | 2017 | | [facility] | DO [address] | | | | | [facility] [address] | [place] [address] | | | | | [address] [place], | [phone] | | | | | [place] [address] | | | | | | [phone] | | | +--------+--------+ + + + [...] | | | | | [place] [address] | | | | | | [phone] | | | | | | | | +--------+---------+ + + + | 06/27/ | Office | Primary Care | Erika Ernst, | | | 2017 | Visit | | DO [address] | | | | | | [place] [address] | | | | | | [phone] | | | | | | | | +--------+---------+ + + + as of this encounter Visit Diagnoses + + | Diagnosis | + + | Asthma, unspecified asthma severity, unspecified whether complicated, unspecified | | whether persistent - Primary | + +"
--- OUTSIDE RECORDS SUMMARY | ~2018-05-31 | XMS | Encounter Summary ---
Demographics + + + | Address | [address] | | | [place] [address] | + + + | Home Phone [...] Team Providers + +------+ + | Care Communication Lecturer Name | Role | Phone | + [...] | [facility] [address] | [place] [address] | (Primary Dx); | | | | [address] [place], | [phone] | Environmental | | | | [place] [address] | | allergies; Vitamin D | | | | [phone] | | deficiency | +--------+---------+ + + [...] day 6 tablet 0 Cholecalciferol (VITAMIN D3) 79330 units TABS Take 1 tablet by mouth [...] | | | | | [place] [address] | | | | | | [phone] | | | | | | | | +--------+---------+ + + + | 06/27/ | Office | Primary Care | Erika Ernst, | | | 2017 | Visit | | DO [address] | | | | | | [place] [address] | | | | | | [phone] | | | | | | | [...]
--- OUTSIDE RECORDS SUMMARY | ~2018-05-31 | XMS | Encounter Summary ---
Demographics + + + | Address | [address] | | | [place] [address] | + + + | Home Phone [...] Team Providers + +------+ + | Care Detective Investigator Name | Role | Phone | [...] | | | | | | [place] [address] | [address] | | | | | | Phone: | [place], [place] | | | | | | [phone] | [address] Phone: | | | | | | Fax: | [phone] | | | | | | [phone] | Fax: | | | | | | | [phone] | + + + + + + [...] | [facility] [address] | [place] [address] | (Primary Dx); PTSD | | | | [address] [place], | [phone] | (post-traumatic | | | | [place] [address] | | stress disorder); | | | | [phone] | | Encounter for | | | [...] | | | | | [place] [address] | | | | | | [phone] | | | | | | | | +--------+---------+ + + + | 06/27/ | Office | Primary Care | Erika Ernst, | | | 2017 | Visit | | DO [address] | | | | | | [place] [address] | | | | | | [phone] | | | | | | | [...] + + | [place] [facility] | [address] | [place] [address] | [phone] | | [facility] | | | | + + [...]
--- OUTSIDE RECORDS SUMMARY | ~2018-05-31 | XMS | Encounter Summary ---
Demographics + + + | Address | [address] | | | [place] [address] | + + + | Home Phone [...] Team Providers + +------+ + | Care Cloth Shrinking Machine Operator Helper Name | Role | [...] Refill | | 2017 | | [facility] | DO [address] | | | | | [facility] [address] | [place] [address] | | | | | [address] [place], | [phone] | | | | | [place] [address] | | | | | | [phone] | | | +--------+--------+ + + + [...] | | | | | [place] [address] | | | | | | [phone] | | | | | | | | +--------+---------+ + + + | 06/27/ | Office | Primary Care | Erika Ernst, | | | 2017 | Visit | | DO [address] | | | | | | [place] [address] | | | | | | [phone] | | | | | | | | +--------+---------+ + + + as of this encounter Visit Diagnoses Not on filein this encounter"
--- OUTSIDE RECORDS SUMMARY | ~2018-05-31 | XMS | Encounter Summary ---
Demographics + + + | Address | [address] | | | [place] [address] | + + + | Home Phone [...] Team Providers + +------+ + | Care Athletic Team Physician Name | Role | Phone | [...] Medication Question | | 2018 | | [facility] | DO [address] | (medication is | | | | [facility] [address] | [place] [address] | making her nauseous. | | | | [address] [place], | [phone] | ) | | | | [place] [address] | | | | | | [phone] | | | +--------+ + + + [...] | | | | | [place] [address] | | | | | | [phone] | | | | | | | | +--------+---------+ + + + | 06/27/ | Office | Primary Care | Erika Ernst, | | | 2017 | Visit | | DO [address] | | | | | | [place] [address] | | | | | | [phone] | | | | | | | | +--------+---------+ + + + as of this encounter Visit Diagnoses Not on filein this encounter"
--- OUTSIDE RECORDS SUMMARY | ~2018-05-31 | XMS | Encounter Summary ---
Demographics + + + | Address | [address] | | | [place] [address] | + + + | Home Phone [...] Team Providers + +------+ + | Care Military Pilot Name | Role | Phone | [...] Refill | | 2017 | | [facility] | DO [address] | | | | | [facility] [address] | [place] [address] | | | | | [address] [place], | [phone] | | | | | [place] [address] | | | | | | [phone] | | | +--------+--------+ + + + [...] | | | | | [place] [address] | | | | | | [phone] | | | | | | | | +--------+---------+ + + + | 06/27/ | Office | Primary Care | Erika Ernst, | | | 2017 | Visit | | DO [address] | | | | | | [place] [address] | | | | | | [phone] | | | | | | | | +--------+---------+ + + + as of this encounter Visit Diagnoses + + | Diagnosis | + + | Asthma, unspecified asthma severity, unspecified whether complicated, unspecified | | whether persistent - Primary | + +"
--- OUTSIDE RECORDS SUMMARY | ~2018-05-31 | XMS | Encounter Summary ---
Demographics + + + | Address | [address] | | | [place] [address] | + + + | Home Phone [...] Providers + +------+ + | Care Curator Horticultural Museum Name | Role | Phone | + [...] Lab Results | | 2018 | | [facility] | [facility] | | | | | [facility] [address] | | | | | | [address] [place], | | | | | | [place] [address] | | | | | | [phone] | | | +--------+ + + + [...] | | | | | [place] [address] | | | | | | [phone] | | | | | | | | +--------+---------+ + + + | 06/27/ | Office | Primary Care | Erika Ernst, | | | 2017 | Visit | | DO [address] [place] [address] | | | | | | [place] [address] | | | | | | [phone] | | | | | | | | +--------+---------+ + + + as of this encounter Visit Diagnoses Not on filein this encounter"
--- OUTSIDE RECORDS SUMMARY | ~2018-05-31 | XMS | Encounter Summary ---
Demographics + + + | Address | [address] | | | [place] [address] | + + + | Home Phone [...] Team Providers + +------+ + | Care Bottle Assembler Name | Role | Phone | [...] Other | | 2018 | | [facility] | [address] | | | | | [facility] [address] | [place] [address] | | | | | [address] [place], | [phone] | | | | | [place] [address] | | | | | | [phone] | | | +--------+ + + + [...] | | | | | [place] [address] | | | | | | [phone] | | | | | | | | +--------+---------+ + + + | 06/27/ | Office | Primary Care | Erika Ernst, | | | 2017 | Visit | | DO [address] [place] [address] | | | | | | [place] [address] | | | | | | [phone] | | | | | | | | +--------+---------+ + + + as of this encounter Visit Diagnoses Not on filein this encounter"
--- OUTSIDE RECORDS SUMMARY | ~2018-05-31 | XMS | Encounter Summary ---
Demographics + + + | Address | [address] | | | [place] [address] | + + + | Home Phone [...] Providers + +------+ + | Care Machine Heddle Cleaner Name | Role | Phone | [...] | [facility] [address] | [place] [address] | | | | | [address] [place], | [phone] | | | | | [place] [address] | | | | | | [phone] | | | +--------+ + + + [...] | | | | | [place] [address] | | | | | | [phone] | | | | | | | | +--------+---------+ + + + | 06/27/ | Office | Primary Care | Erika Ernst, | | | 2017 | Visit | | DO [address] | | | | | | [place] [address] | | | | | | [phone] | | | | | | | | +--------+---------+ + + + as of this encounter Visit Diagnoses Not on filein this encounter"
--- OUTSIDE RECORDS SUMMARY | ~2018-05-31 | XMS | Encounter Summary ---
Demographics + + + | Address | [address] | | | [place] [address] | + + + | Home Phone [...] Providers + +------+ + | Care Reclamation Furnace Operator Name | Role | Phone | [...] Results | | 2018 | | [facility] | BUILDING DRAFTING OFFICER | | | | | [facility] [address] | | | | | | [address] [place], | | | | | | [place] [address] | | | | | | [phone] | | | +--------+ + + + [...] | | | | | [place] [address] | | | | | | [phone] | | | | | | | | +--------+---------+ + + + | 06/27/ | Office | Primary Care | Erika Ernst, | | | 2017 | Visit | | DO [address] [place] [address] | | | | | | [place] [address] | | | | | | [phone] | | | | | | | | +--------+---------+ + + + as of this encounter Visit Diagnoses Not on filein this encounter"
--- OUTSIDE RECORDS SUMMARY | ~2018-05-31 | XMS | Encounter Summary ---
Demographics + + + | Address | [address] | | | [place] [address] | + + + | Home Phone [...] Team Providers + +------+ + | Care Teaching Assistant Name | Role | Phone | [...] Paperwork | | 2018 | | [facility] | DO [address] | | | | | [facility] [address] | [place] [address] | | | | | [address] [place], | [phone] | | | | | [place] [address] | | | | | | [phone] | | | +--------+ + + + [...] | | | | | [place] [address] | | | | | | [phone] | | | | | | | | +--------+---------+ + + + | 06/27/ | Office | Primary Care | Erika Ernst, | | | 2017 | Visit | | DO [address] [place] [address] | | | | | | [place] [address] | | | | | | [phone] | | | | | | | | +--------+---------+ + + + as of this encounter Visit Diagnoses Not on filein this encounter"
--- OUTSIDE RECORDS SUMMARY | ~2018-05-31 | XMS | Encounter Summary ---
Demographics + + + | Address | [address] | | | [place] [address] | + + + | Home Phone [...] Providers + +------+ + | Care Heel Cementer Name | Role | Phone | [...] Refill | | 2017 | | [facility] | DO [address] | | | | | [facility] [address] | [place] [address] | | | | | [address] [place], | [phone] | | | | | [place] [address] | | | | | | [phone] | | | +--------+--------+ + + + [...] | | | | | [place] [address] | | | | | | [phone] | | | | | | | | +--------+---------+ + + + | 06/27/ | Office | Primary Care | Erika Ernst, | | | 2017 | Visit | | DO [address] | | | | | | [place] [address] | | | | | | [phone] | | | | | | | | +--------+---------+ + + + as of this encounter Visit Diagnoses Not on filein this encounter"
--- OUTSIDE RECORDS SUMMARY | ~2018-05-31 | XMS | Encounter Summary ---
Demographics + + + | Address | [address] | | | [place] [address] | + + + | Home Phone [...] Team Providers + +------+ + | Care Ccu Nurse Name | Role | Phone | [...] bronchitis, | | 2018 | Visit | [facility] | DO [address] | unspecified organism | | | | [facility] [address] | [place] [address] | (Primary Dx); | | | | [address] [place], | [phone] | Asthma due to | | | | [place] [address] | | environmental | | | | [phone] | | allergies | +--------+---------+ + + [...] daily. 1 Inhaler 11 Cholecalciferol (VITAMIN D3) 60796 units TABS Take 1 tablet by mouth [...] | | | | | [place] [address] | | | | | | [phone] | | | | | | | | +--------+---------+ + + + | 06/27/ | Office | Primary Care | Erika Ernst, | | | 2017 | Visit | | DO [address] | | | | | | [place] [address] | | | | | | [phone] | | | | | | | | +--------+---------+ + + + as of this encounter Visit Diagnoses + + | Diagnosis | + + | Acute bronchitis, unspecified organism - Primary | + + | Asthma due to environmental allergies | + +
--- OUTSIDE RECORDS SUMMARY | ~2018-05-31 | XMS | Clinical Summary ---
Demographics + + + | Address | [address] [facility] | | | [place] [address] | + + + | Home Phone [...] Providers + +------+ + | Care Community Mental Health Social Worker Name | Role | Phone | + +------+ + | Erika Ernst DO | PP | Unavailable | + +------+ + Allergies + + [...] + + + Current Medications + + +---------+---------+------+------+-------+ | Prescription | Sig. | Disp. | Refills | Star | End | Statu | | | | | | t | Date | s | | | | | | Date | | | + + +---------+---------+------+------+-------+ | fexofenadine | Take by mouth. | | | 07/0 | | Activ | | (JOSÉ ANTONIO ALLERGY) | | | | 05/21 | | e | | 180 mg tablet | | | | 17 | | | + + +---------+---------+------+------+-------+ | ferrous sulfate | Take by mouth. | | | 06/03 | | Activ | | 325 mg tablet | | | | 06/21 | | e | | | | | | 17 | | | + + +---------+---------+------+------+-------+ | montelukast | Take by mouth. | | | 05/2 | | Activ | | (SINGULAIR) 10 mg | | | | 02/18 | | e | | tablet | | | | 17 | | | + + +---------+---------+------+------+-------+ | VENTOLIN HFA 108 | INSTILL 2 PUFFS BY | 18 g | 11 | 06/ | | Activ | | (90 Base) MCG/ACT | MOUTH EVERY 4 TO 6 | | | 8/20 | | e | | inhalerIndications: | HOURS NEEDED | | | 18 | | | | Asthma, unspecified | | | | | | | | asthma severity, | | | | | | | | unspecified whether | | | | | | | | complicated, | | | | | | | | unspecified whether | | | | | | | | persistent | | | | | | | + + +---------+---------+------+------+-------+ | Cholecalciferol | Take 1 tablet by | 16 | 0 | 06 | 10/0 | Activ | | (VITAMIN D3) 91386 | mouth Once a week | tablet | | 8 | 20 | e | | units TABS | for 16 doses. | | | 18 | 18 | | + + +---------+---------+------+------+-------+ | amLODIPine | Take 1 tablet by | 30 | 11 | 07/0 | | Activ | | (NORVASC) 5 mg | mouth Daily. | tablet | | 2/20 | | e | | tablet | | | | 18 | | | + + +---------+---------+------+------+-------+ | beclomethasone | Inhale 1 puff into | 1 | 11 | 08/0 | | Activ | | (QVAR) 80 mcg/puff | the lungs 2 times | Inhaler | | 1/20 | | e | | inhaler | daily. | | | 18 | | | + + +---------+---------+------+------+-------+ | azithromycin | Take 500 mg daily x | 7 | 0 | 08/0 | | Activ | | (ZITHROMAX) 500 MG | 7 days | tablet | | 8/20 | | e | | tablet | | | | 18 | | | + + +---------+---------+------+------+-------+ | predniSONE | TAKE 6 TABS BY MOUTH | 41 | 0 | 08/1 | | Activ | | (DELTASONE) 10 mg | FOR 5 DAYS, THEN 4 | tablet | | 5/20 | | e | | tablet | TABS FOR 1 DAY, THEN | | | 18 | | | | | 3 TABS FOR 1 DAY, | | | | | | | | THEN 2 TABS FOR 1 | | | | | | | | DAY, THEN 1 TAB FOR | | | | | | | | 1 DAY, THEN 1/2 TAB | | | | | | | | FOR | | | | | | + + +---------+---------+------+------+-------+ | busPIRone (BUSPAR) | Take 1 tablet by | 30 | 0 | 08/2 | | Activ | | 5 mg tablet | mouth 3 times daily. | tablet | | 8/20 | | e | | | | | | 18 | | | + + +---------+---------+------+------+-------+ | ipratropium | Inhale into the | | | 03/ | 08/0 | Disco | | (ATROVENT HFA) 17 | lungs. | | | 20 | 120 | ntinu | | mcg/puff inhaler | | | | 17 | 18 | ed | + + +---------+---------+------+------+-------+ | levothyroxine | Take by mouth. | | | / | 08/0 | Disco | | (SYNTHROID) 75 MCG | | | | 220 | 1/20 | ntinu | | tablet | | | | 17 | 18 | ed | + + +---------+---------+------+------+-------+ | traMADol (ULTRAM) | Take 1 tablet by | 30 | 0 | 06/2 | 08/0 | Disco | | 50 mg tablet | mouth every 8 hours | tablet | | 1/20 | 1/20 | ntinu | | | as needed. | | | 18 | 18 | ed | + + +---------+---------+------+------+-------+ | QVAR 80 MCG/ACT | inhale 2 puffs by | 1 | 0 | 07/2 | 08/0 | Disco | | inhaler | mouth twice a day | Inhaler | | 4/20 | 1/20 | ntinu | | | | | | 18 | 18 | ed | + + +---------+---------+------+------+-------+ | beclomethasone | Inhale 1 puff into | 1 | 5 | 07/2 | 08/0 | Disco | | (QVAR) 40 mcg/puff | the lungs 2 times | Inhaler | | 3/20 | 1/20 | ntinu | | inhaler | daily. | | | 18 | 18 | ed | + + +---------+---------+------+------+-------+ | beclomethasone | Inhale 1 puff into | | | | 08/0 | Disco | | (QVAR) 80 mcg/puff | the lungs 2 times | | | | 1/20 | ntinu | | inhaler | daily. | | | | 18 | ed | + + +---------+---------+------+------+-------+ | predniSONE | Take by mouth 6 | 41 | 0 | 08/0 | 08/0 | Disco | | (DELTASONE) 10 mg | tablets (60 mg) days | tablet | | 8/20 | 8/20 | ntinu | | tablet | 1-5; then 4 tablets | | | 18 | 18 | ed | | | (40 mg) on day [...] | stop | | | | | | + + +---------+---------+------+------+-------+ | predniSONE | Take by mouth 6 | 41 | 0 | 08/0 | 08/1 | Disco | | (DELTASONE) 10 mg | tablets (60 mg) days | tablet | | 8/20 | 5/20 | ntinu | | tablet | 1-5; then 4 tablets | | | 18 | 18 | ed | | | (40 mg) on day [...] | stop | | | | | | + + +---------+---------+------+------+-------+ | predniSONE | Take by mouth 6 | 41 | 0 | 08/1 | 08/ | Disco | | (DELTASONE) 10 mg | tablets (60 mg) days | tablet | | 5/20 | 5/20 | ntinu | | tablet | 1-5; then 4 tablets | | | 18 | 18 | ed | | | (40 mg) on day [...] | stop | | | | | | + + +---------+---------+------+------+-------+ Active Problems + + + | Problem | Noted Date | + + + | Anxiety | [...] | 02/16/2018 | + + + | Depression | 02/16/2018 | + + + | Acquired hypothyroidism | 02/16/2018 | + + + | Class 3 severe obesity due to excess calories without serious | 02/16/2018 | | comorbidity in adult (HCC) | | + + + Encounters +--------+ + + + + | Date | Type | Specialty | Care Team | Description | +--------+ + + + + | 05/29/ | Office | | Erika Ernst, | Asthma due to | | 2017 | Visit | | DO | environmental | | | | | | allergies (Primary | | | | | | Dx); PTSD | | | | | | (post-traumatic | | | | | | stress disorder); | | | | | | Anxiety | +--------+ + + + + | 05/23/ | Telephone | | Erika Ernst, | Paperwork | 2017 | | | DO | | +--------+ + + + + | 05/16/ | Office | | Erika Ernst, | Asthma due to | | 2017 | Visit | | DO | environmental | | | | | | allergies (Primary | | | | | | Dx); Nausea | +--------+ + + + + | 05/16/ | Telephone | | Veronica Huerta, | Lab Results | 2017 | | | CEMENT TRUCK LOADER | | +--------+ + + + + | 05/16/ | Refill | | Erika Ernst, | Medication Refill | | 2017 | | | DO | | +--------+ + + + + | 05/15/ | Telephone | | Erika Ernst, | Bronchitis (symptoms | | 2018 | | | DO | are worse) | +--------+ + + + + | 05/09/ | Office | | Erika Ernst, | Acute bronchitis, | | 2018 | Visit | | DO | unspecified organism | | | | | | (Primary Dx); | | | | | | Asthma due to | | | | | | environmental | | | | | | allergies | +--------+ + + + + | 05/07/ | Telephone | | Erika Ernst, | Medication Question | | 2017 | | | DO | (medication is | | | | | | making her nauseous. | | | | | | ) | +--------+ + + + + | 05/02/ | Office | | Erika Ernst, | Essential | | 2017 | Visit | | DO | hypertension | | | | | | (Primary Dx); Asthma | | | | | | due to | | | | | [...] | | 59.9 in adult ([facility]); | | | | | | Chronic hand pain, | | | | | | right | +--------+ + + + + | 04/23/ | Telephone | | Erika Ernst, | Medication Refill | | 2017 | | | DO | | +--------+ + + + + | 04/19/ | Refill | | Erika Ernst, | Medication Refill | | 2017 | | | DO | | +--------+ + + + + | 04/02/ | Office | | Erika Ernst, | Essential | | 2018 | Visit | | DO | hypertension | | | | | | (Primary Dx); | | | | | | Environmental | | | | | | allergies; Vitamin D | | | | | | deficiency | +--------+ + + + + | 03/22/ | Telephone | | Erika Ernst, | Medication Question | | 2017 | | | DO | | +--------+ + + + + | 03/20/ | Telephone | | Veronica Huerta, | Lab Results | | 2017 | | | CEMENT TRUCK LOADER | | +--------+ + + + + | 03/19/ | Office | | Erika Ernst, | Essential | | 2018 | Visit | | DO | hypertension | | | | | | (Primary Dx); PTSD | | | | | | (post-traumatic | | | | | | stress disorder); | | | | | | Encounter for [...] | | | | specified; Cough | +--------+ + + + + | 03/19/ | Orders Only | | Erika Ernst, | Vitamin D deficiency | | 2017 | | | DO | | +--------+ + + + + | 03/19/ | Refill | | Erika Ernst, | Medication Refill | | 2017 | | | DO | | +--------+ + + + + | 03/15/ | Telephone | | Erika Ernst, | Other (regarding | 2017 | | | DO | Sofia Steinberg) | +--------+ + + + + | 03/15/ | Telephone | | Veronica Huerta, | Lab Results | | 2017 | | | CEMENT TRUCK LOADER | | +--------+ + + + + | 03/15/ | Telephone | | Veronica Huerta, | Results, Imaging | | 2017 | | | CEMENT TRUCK LOADER | | +--------+ + + + + | 03/14/ | Hospital | | Erika Ernst, | Right foot pain | | 2017 | Encounter | | DO | | +--------+ + + + + | 03/05/ | Telephone | | Erika Ernst, | Other | | 2017 | | | DO | | +--------+ + + + + | 03/02/ | Office | | Erika Ernst, | Essential | | 2017 | Visit | | DO | hypertension | | | | | | (Primary Dx); TMJ | | | | | | (temporomandibular | | | | | | joint disorder); | | | | | | Chronic midline low | | | | | | back pain without | | | | | | sciatica; Left hip | | | | | | pain; Right foot | | | | | | pain; Acquired | | | | | | hypothyroidism | +--------+ + + + + from Last 3 Months Immunizations + + + + | Name | Dates Previously Given | Next Due | + + + + | HEP B, 3 DOSE | 09/15/2015 | | | (ADULT) | | | + + + + | PNEUMOCOCCAL | 06/22/2016 | | | CONJUGATE 13-VALENT | | | | (PCV13) | | | + + + + Family History + + +------+ + | Medical History | Relation | Name | Comments | + + +------+ + | Other (see comment) | Mother | | gallbladder disease | + + +------+ + + +------+--------+ + | Relation | Name | Status | Comments | + +------+--------+ + | Mother | [...] | Blood Pressure | 130/90 | 05/29/2018 1509 PDT | + + [...] Weight | 166.5 kg (367 lb) | 05/29/20181508 PDT | + + + + | Height | 167.6 cm (5' 6") | 05/29/2018 1509 PDT | + + + + | Body Mass Index | 59.24 | 05/29/2018 1509 PDT | + + + + Plan of Treatment +--------+---------+ + + + | Date | Type | Specialty | Care Team | Description | +--------+---------+ + + + | 06/06/ | Office | | Erika Ernst, | | | 2017 | Visit | | DO [address] | | | | | | [place] [address] | | | | | | [phone] | | | | | | | | +--------+---------+ + + + | 06/27/ | Office | | Erika Ernst, | | | 2017 | Visit | | DO [address] [place] | | | | | | [place] [address] | | | | | | [phone] | | | | | | | | +--------+---------+ + + + + + + + + | Health Maintenance | Due Date | Last Done | Comments | + + + + + | PRIMARY CARE | | | | | OUTREACH-MODERATE | 0 | | | | RISK EVERY 1 YEAR | | | | + + + + + | Vaccine: | | | | | Dtap/Tdap/Td (1 - | 9 | | | | Tdap) | | | | + + + + + | Vaccine: | | | | | Pneumococcal 19-64 | 9 | | | | (PPSV23 only) Medium | | | | | Risk (1 of 1 - | | | | | PPSV23) | | | | + + + + + | Cervical Cancer | | | | | Screening (Pap) | 1 | | | + + + + + | Vaccine: Influenza | | | | | (#1) | 8 | | | + + + + + Procedures + +--------+ + + + | Procedure Name | Priori | Date/Time | Associated Diagnosis | Comments | | | ty | | | | + +--------+ + + + | HCG, URINE, QUAL | Routin | 05/16/2018 | Nausea | Results for this | | | e | 0832 PDT | | procedure are in the [...] + + | TSH | Routin | 03/14/2018 | Acquired | Results for this | | | e | 1512 PDT | hypothyroidism | procedure are in the | | | | | | results section. | + +--------+ + + + | LIPID PANEL | Routin | 03/14/2018 | Essential | Results for this | | | e | 1512 PDT | hypertension | procedure are in the | | | | | | results section. | + +--------+ + + + | COMPREHENSIVE | Routin | 03/14/2018 | Essential | Results for this | | METABOLIC PANEL | e | 1512 PDT | hypertension | procedure are in the | | | | | | results section. | + +--------+ + + + from Last 3 Months Results , Urine, Qual (05/16/2018 0832) + + + + + | Component | Value | Ref Range | Performed At | + + + + + | HCG SCREEN, URINE | Negative | Negative | [facility] | | | | | [facility] | | | | | [facility] | | | | | [facility] | | | | | LAB | + + + + + + + | Specimen | + + | Urine | + + + + + + + | Performing | Address | City/State/Zipcode | Phone Number | | Organization | | | | + + + + + | [facility] | [address] | [place] [address] | [phone] | | [facility] | | | | | [facility] | | | | + + + + + LABS - EXTERNAL SCAN (05/14/2018) + + + | Narrative | Performed At | + + + | Ordered by an | | | unspecified provider. | | + + + Vitamin D, Deficiency Screen (25-Hydroxy) (03/19/2018 1146) + +--------+ + + | Component | Value | Ref Range | Performed At | + +--------+ + + | Vitamin D, 25 | 21 (L) | 30 - 100 ng/mL | [facility] | | Hydroxy | | | [facility]OSPITAL | | | | | LABORATORY | + +--------+ + + + + | Specimen | + + | Blood | + + + + + + + | Performing | Address | City/State/Zipcode | Phone Number | | Organization | | | | + + + + + | [facility] | [address] | [place] [address] | [phone] | | [facility] | | | | + + + + + XR Foot Right 2 Vw (03/14/2018 1604) [...] the medial foot. Age appropriate bone mineral surveyor al density. | | | |IMPRESSION: | [...] | + +---------+ + + Lipid Panel (03/14/20181511) + + + + + | Component [...] | | REGIONAL | | | mg/dL [id number] | | [facility]ENTER | | | - 129 mg/dL Near | | LAB | | | [id number] - 159 | | | | | [...] + | FASTING 20 HRS | [facility] | | | [facility] | | | [facility] | | | [facility] | | | LAB | + + + + + + + + | Performing | Address | City/State/Zipcode | Phone Number | | Organization | | | | + + + + + | [facility] | [address] | [place] [address] | [phone] | | [facility] | | | | | [facility] | | | | + + + + + TSH (03/14/2018 1512) + +-------+ [...] + + | [facility] | [address] | [place] [address] | [phone] | | [facility] | | | | | [facility] | | | | + + + + + Comprehensive Metabolic Panel (03/14/2018 1512) + + + + + | Component | Value | Ref Range | Performed At | + + + + + | NA | 142 | 132 - 143 mmol/L | [facility] | | | | | [facility] | | | | | [facility] | | | | | [facility] | | | | | LAB | + + + + + | K | 3.6 | 3.3 - 4.9 mmol/L | [facility] | | | | [...] | 0.70 - 1.40 mg/dL | [facility] | | Serum/Plasma | | | [facility]OSPITAL | | | | | [facility] | | | | | [facility] | | | | | LAB | + + + + + | eGFR if not | >60Comment: GLOMERULAR | >=60 mL/min/1.73m2 | [facility] | | [place] | FILTRATION | | HOSPITAL | | | RATE,ESTIMATED mL/min | | REGIONAL | | | /1.47b3Pvxa than 60 | | MEDICAL CENTER | [...] | 0 - 38 U/L | [facility] | | | | | [facility] | | | | | [facility] | | | | | [facility] | | | | | LAB | + + + + + | ALT | 24 | 14 - 59 U/L | [facility] | | | | | [facility] | | | | | [facility] | | | | | [facility] | | | | | LAB | + + + + + | ALK PHOS | 73 | 46 - 116 U/L | [facility] | | | | | [facility] | | | | | [facility] | | | | | [facility] | | | | | LAB | + + + + + | GLOBULIN | 3.4 | g/dL | [facility] | | | [...] + + | [facility] | [address] | [place] [address] | [phone] | | [facility] | | | | | [facility] | | | | + + + + + from Last 3 Months Insurance +-------+--------+ +------+ + + | Payer | Benefi | Subscriber | Type | Phone | Address | | | t Plan | ID | | | | | | / | | | | | | | Group | | | | | +-------+--------+ +------+ + + | MODA | MODA | [id number] | PPO | +- | [address] [address] | | | HEALTH | | | [address] | [place] [address] | | | | | | | | | | [place] | | | | | | | [place] | | | | | +-------+--------+ +------+ + + | MODA | MODA | [id number] | PPO | +- | [id number] | | | HEALTH | | | [address] | [place] [address] | | | | | | | | | | [place] | | | | | | | [place] | | | | | +-------+--------+ +------+ + + + +--------+ +--------+ + + | Guarantor Name | Accoun | Relation to | Date | Phone | Billing Address | | | t Type | Patient | of | | | | | | | | | | + +--------+ +--------+ + + | ANDREA SUH | Person | Self [birth year] | Home: | [address] | | | al/Fam | | 1989 | [phone] | [place] | | | [place] | | | [phone] | [phone] | + +--------+ +--------+ + + | ANDREA SUH | Person | Self | [birth year] | Home: | [address] | | | al/Fam | | 1989 | [phone] | [place] | | | [place] | | | [phone] | [phone] | + +--------+ +--------+ + +
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
--- OUTSIDE RECORDS SUMMARY | ~2018-05-31 | XMS | Encounter Summary ---
Demographics + + + | Address | [address] | | | [place] [address] | + + + | Home Phone [...] Providers + +------+ + | Care Rn Admissions Name | Role | Phone | + [...] | [facility] [address] | [place] [address] | | | | [address] [place], | [phone] | | | | | [place] [address] | | | | | | [phone] | | | +--------+ + + + [...] [address] | | | | | | [phone] | | | | | | | | +--------+---------+ + + + | 06/27/ | Office | Primary Care | Erika Ernst, | | | 2017 | Visit | | DO [address] [place] | | | | | | [place] [address] | | | | | | [phone] | | | | | | | | +--------+---------+ + + + as of this encounter Visit Diagnoses Not on filein this encounter"
--- OUTSIDE RECORDS SUMMARY | ~2018-05-31 | XMS | Encounter Summary ---
Demographics + + + | Address | [address] | | | [place] [address] | + + + | Home Phone [...] Team Providers + +------+ + | Care Banking And Finance Instructor Name | Role | Phone | [...] 03/20/ | Telephone | [facility] [facility] | Vernoica Huerta, | Lab Results | | 2018 | | [facility] | ASSISTANT PROFESSOR OF CHEMISTRY | | | | | [facility] [address] | | | | | | [address] [place], | | | | | | [place] [address] | | | | | | [phone] | | | +--------+ + + + [...] | | | | | [place] [address] | | | | | | [phone] | | | | | | | | +--------+---------+ + + + | 06/27/ | Office | Primary Care | Erika Ernst, | | | 2017 | Visit | | DO [address] [place] [address] | | | | | | [place] [address] | | | | | | [phone] | | | | | | | | +--------+---------+ + + + as of this encounter Visit Diagnoses Not on filein this encounter"
--- OUTSIDE RECORDS SUMMARY | ~2018-05-31 | XMS | Encounter Summary ---
Demographics + + + | Address | [address] | | | [place] [address] | + + + | Home Phone [...] Team Providers + +------+ + | Care Pet House Sitter Name | Role | Phone | [...] Results, Imaging | | 2017 | | [facility] | TELEGRAPH OFFICE TELEPHONE CLERK | | | | | [facility] [address] | | | | | | [address] [facility] [place], | | | | | | [place] [address] | | | | | | [phone] | | | +--------+ + + + [...] | | | | | [place] [address] | | | | | | [phone] | | | | | | | | +--------+---------+ + + + | 06/27/ | Office | Primary Care | Erika Ernst, | | | 2017 | Visit | | DO [address] [place] | | | | | | [place] [address] | | | | | | [phone] | | | | | | | | +--------+---------+ + + + as of this encounter Visit Diagnoses Not on filein this encounter"
--- OUTSIDE RECORDS SUMMARY | ~2018-05-31 | XMS | Encounter Summary ---
Demographics + + + | Address | [address] | | | [place] [address] | + + + | Home Phone [...] Providers + +------+ + | Care Sales Order Coordinator Name | Role | Phone | [...] Question | | 2018 | | [facility] | DO [address] | | | | | [facility] [address] | [place] [address] | | | | | [address] [place], | [phone] | | | | | [place] [address] | | | | | | [phone] | | | +--------+ + + + [...] | | | | | [place] [address] | | | | | | [phone] | | | | | | | | +--------+---------+ + + + | 06/27/ | Office | Primary Care | Erika Ernst, | | | 2017 | Visit | | DO [address] [place] | | | | | | [place] [address] | | | | | | [phone] | | | | | | | | +--------+---------+ + + + as of this encounter Visit Diagnoses Not on filein this encounter"
--- OUTSIDE RECORDS SUMMARY | ~2018-05-31 | XMS | Encounter Summary ---
Demographics + + + | Address | [address] | | | [place] [address] | + + + | Home Phone [...] Providers + +------+ + | Care Manager Title Name | Role | Phone | + [...] Refill | | 2017 | | [facility] | DO [address] | | | | | [facility] [address] | [place] [address] | | | | | [address] [place], | [phone] | | | | | [place] [address] | | | | | | [phone] | | | +--------+--------+ + + + [...] | | | | | [place] [address] | | | | | | [phone] | | | | | | | | +--------+---------+ + + + | 06/27/ | Office | Primary Care | Erika Ernst, | | | 2017 | Visit | | DO [address] | | | | | | [place] [address] | | | | | | [phone] | | | | | | | | +--------+---------+ + + + as of this encounter Visit Diagnoses Not on filein this encounter"
--- OUTSIDE RECORDS SUMMARY | ~2018-05-31 | XMS | Clinical Summary ---
Demographics + + + | Address | [address] [facility] | | | [place] [address] | + + + | Home Phone [...] Team Providers + +------+ + | Care Turbine Attendant Name | Role | Phone | [...] 10/0 | Activ | | (VITAMIN D3) [id number] | mouth Once a week | tablet [...] Lab Results | 2017 | | | PUBLIC RELATIONS SUPERVISOR | | +--------+ + + + + [...] | | | 59.9 in adult ([facility]LY [facility]); | | | | | | [...] Results | | 2017 | | | PUBLIC RELATIONS SUPERVISOR | | +--------+ + + + + [...] Results | | 2017 | | | PUBLIC RELATIONS SUPERVISOR | | +--------+ + + + + | 03/15/ | Telephone | | Veronica Huerta, | Results, Imaging | | 2017 | | | PUBLIC RELATIONS SUPERVISOR | | +--------+ + + + + [...] | | | | | [place] [address] | | | | | | [phone] | | | | | | | | +--------+---------+ + + + | 06/27/ | Office | | Erika Ernst, | | | 2017 | Visit | | DO [address] [place] | | | | | | [place] [address] | | | | | | [phone] | | | | | | | [...] | REGIONAL | | | | | [facility] | | | | | LAB | + + + + + + + | Specimen | + + | Urine | + + + + + + + | Performing | Address | City/State/Zipcode | Phone Number | | Organization | | | | + + + + + | [place] [facility] | [address] | [place] [address] | [phone] | | [facility] | | | [...] + + | [place] [facility] | [address] | [place] [address] | [phone] | | HOSPITAL LAB[facility]ATORY | | | [...] of the medial foot. Age appropriate bone fur examiner al density. | | | |IMPRESSION: [...] | | REGIONAL | | | mg/dL [id number] | | MEDICAL CENTER | | | - 129 mg/dL Near | | LAB | | | Rotltxy187 - 159 | | | | | [...] | [address] | [place] [address] | [phone] | | [facility] | | | [...] + | [facility] [facility] | [address] | [place] [address] | [phone] | | H[facility]ITAL [facility] | | | [...] >=60 mL/min/1.73m2 | [facility] [facility] | | ESTONIAN | FILTRATION | | HOSPITAL | | | RATE,ESTIMATED mL/min | | REGIONAL | | | /1.06v6Uhtn than 60 | | MEDICAL CENTER | [...] + | [place] [facility] | [address] | [place] [address] | [phone] | | [facility] | | | | | [facility] | | | | + [...] + + | MODA | MODA | [id number] | PPO | +- | [address] [address] | | | HEALTH | | | [address] | [place] [address] | | | | | | | | | | [place] | | | | | | | [place] | | | | | +-------+--------+ +------+ + + | MODA | MODA | [id number] | PPO | +- | [address] [id number] | | | HEALTH | | | [address] | [place] [address] | | | | | | | [...] | jayna | | | [phone] | [address] | + +--------+ +--------+ + + | ANDREA SUH | Person | Self | [birth year] Home: | [address] | | | al/Fam | | 1989 | [phone] [place] | | | jayna | | | [phone] | [address] | + +--------+ +--------+ + +
--- OUTSIDE RECORDS SUMMARY | ~2018-05-31 | XMS | Encounter Summary ---
Demographics + + + | Address | [address] | | | [place] [address] | + + + | Home Phone [...] Team Providers + +------+ + | Care Talkback Host Name | Role | Phone | + [...] D deficiency | | 2018 | | [facility] | [address] | | | | | MEDICAL CLIN[facility] [address] | [place] [address] | | | | | [address] [place], | [phone] | | | | | [place] [address] | | | | | | [phone] | | | +--------+ + + + [...] | | | | | [place] [address] | | | | | | [phone] | | | | | | | | +--------+---------+ + + + | 06/27/ | Office | Primary Care | Erika Ernst, | | | 2017 | Visit | | DO [address] [place] | | | | | | [place] [address] | | | | | | [phone] | | | | | | | | +--------+---------+ + + + as of this encounter Visit Diagnoses + + | Diagnosis | + + | Vitamin D deficiency | + + | Unspecified vitamin D deficiency | + +"
--- OUTSIDE RECORDS SUMMARY | ~2018-05-31 | XMS | Encounter Summary ---
Demographics + + + | Address | [address] | | | [place] [address] | + + + | Home Phone [...] | [facility] | | [...] Providers + +------+ + | Care Supervisor Fitting Name | Role | Phone | + [...] Imaging | | 2017 | | [facility] | [facility] | | | | | MEDICAL CLIN[facility] [address] | | | | | | [facility] [facility] [place], | | | | | | [place] [address] | | | | | | [phone] | | | +--------+ + + + [...] | | | | | [place] [address] | | | | | | [phone] | | | | | | | | +--------+---------+ + + + | 06/27/ | Office | Primary Care | Erika Ernst, | | | 2017 | Visit | | DO [address] [place] | | | | | | [place] [address] | | | | | | [phone] | | | | | | | | +--------+---------+ + + + as of this encounter Visit Diagnoses Not on filein this encounter"
--- OUTSIDE RECORDS SUMMARY | ~2018-05-31 | XMS | Encounter Summary ---
Demographics + + + | Address | [address] | | | [place] [address] | + + + | Home Phone [...] Providers + +------+ + | Care Station Gateman Name | Role | Phone | + +------+ + | Erika Ernst DO | PCP | Unavailable | + +------+ + Encounter Details +--------+ + + + + | Date | Type | Department | Care Team | Description | +--------+ + + + + | 03/14/ | [facility] | [place] [facility] | Erkia Ernst, | Right foot pain | | 2018 | Encounter | HOSPITAL XRAY [address] | DO [address] | | | | | [address] | [place] [address] | | | | | [place] | [phone] | | | | | [address] | | | | | | [phone] | | | +--------+ + + + [...] | | | | | [place] [address] | | | | | | [phone] | | | | | | | | +--------+---------+ + + + | 06/27/ | Office | Primary Care | Erika Ernst, | | | 2017 | Visit | | DO [address] | | | | | | [place] [address] | | | | | | [phone] | | | | | | | [...] of the medial foot. Age appropriate bone station examiner al density. | | | |IMPRESSION: [...]
[~2018-05-31 07:49] MED LIST changes: +CYCLOBENZAPRINE10 MG PO; +MELATONIN3 MG PO; +QVAR REDIHALE10.6 G1
[2018-05-31] MEDS ORDERED: BUSPIRONE HCL5 MG PO (08:02)
[2018-05-31] MEDS ORDERED: NAPROXEN SODIU500 MG PO (08:32)
== END 2018-05-31 08:40 | disposition home or self-care (01) ==
LOC: ED 07:49
DX: S93.402A Sprain of unspecified ligament of left ankle, initial encounter (principal); E03.9 Hypothyroidism, unspecified; I10 Essential (primary) hypertension; Z88.5 Allergy status to narcotic agent; Z79.899 Other long term (current) drug therapy; W18.40XA Slipping, tripping and stumbling without falling, unspecified, initial encounter; X50.1XXA Overexertion from prolonged static or awkward postures, initial encounter
CPT/HCPCS: 73610; 99283

== ENCOUNTER 2019-09-30 00:47 | Emergency (ER) | payer OTHER ==
[~2019-09-30] VITALS: Ht 177.8 cm; Wt 166.0 kg
--- OUTSIDE RECORDS SUMMARY | ~2019-09-30 | XMS | Encounter Summary ---
Demographics + + + | Address | [address] | | | [place] [address] | + + + | Home Phone | | + + + | Preferred Language | Unknown | + + + | Marital Status | Single | + + + | Adventist Affiliation | Unknown | + + + | Race | Unknown | + + + | Ethnic Group | Unknown | + + + Author + + + | Author | [facility] | | | and [place] | + + + | Organization | [facility] | | | and [place] | + + + | Address | Unknown | + + + | Phone | Unavailable | + + + Support + + +---------+ + | Name | Relationship | Address | Phone | + + +---------+ + | Bhavna Boss | ECON | Unknown | | + + +---------+ + Care Team Providers + +------+ + | Care Esl Instructor Name | Role | Phone | + +------+ + | Erika Ernst DO | PCP | | + +------+ + Reason for Visit +--------+ + | Reason | Comments | +--------+ + | Other | | +--------+ + Encounter Details +--------+ + + + + | Date | Type | Department | Care Team | Description | +--------+ + + + + | 08/19/ | Telephone | [place] [facility] | Luis Nichole MD | Other | | 2019 | | HOSPITAL NEUROLOGY | [address] | | | | | CLIN[address] | [place], [place] | | | | | [address] [place], | [address] | | | | | [place] [address] | | | | | | [phone] | | | +--------+ + + + [...] + +---------+ + | Alcohol Use | Drinks/Week | oz/Week | Comments | + + +---------+ + | No | 0 Glasses of wine | 0.0 | | | | 0 Cans of beer 0 | | | | | Shots of liquor 0 | | | | | Standard drinks or | | | | | equivalent | | | + + +---------+ + + + + + | Alcohol Habits | Answer | Date Recorded | + + + + | How often do you have a drink containing | Never | 02/20/2019 | | alcohol? | | | + + + + | How many drinks containing alcohol do you | Not asked | | | have on a typical day when you are | | | | drinking? | | | + + + + | How often do you have six or more drinks on | Never | 02/20/2019 | | one occasion? | | | + + + + + + + | Sex Assigned at | Date Recorded | | | | + + + | Female | 01/14/2019 8:57 PM PDT | + + + + + + + | Job Start Date | Occupation | Industry | + + + + | Not on file | Not on file | Not on file | + + + + + + + + | Travel History | Travel Start | Travel End | + + + + + + | No recent travel history available. | + + documented as of this encounter Plan of Treatment +--------+ + + + + | Date | Type | Specialty | Care Team | Description | +--------+ + + + + | 10/01/ | Office | Primary Care | Erika Ernst, | | | 2018 | Visit | | DO [address] | | | | | | [place] [address] | | | | | | [phone] | | | | | | | | +--------+ + + + + | 10/30/ | Office | Primary Care | Erika Ernst, | | | 2019 | Visit | | DO [address] [place] | | | | | | [place] [address] | | | | | | [phone] | | | | | | | | +--------+ + + + + | 11/07/ | Appointment | Nutrition | Janel Webster | | | 2019 | | | [place] | | +--------+ + + + + | 11/28/ | Office | Otolaryngology | Anthony Alvarado MD | | 2019 | Visit | | [address] | | | | | | [place] | | | | | | [address] | | | | | | [phone] | | | | | | | | +--------+ + + + + | 02/09/ | Office | Neurology | Dhara, | | | 2020 | Visit | | DWAINE Ross [address] | | | | | [address] [place], | | | | | | [place] [address] | | | | | | [phone] | | | | | | | | +--------+ + + + + documented as of this encounter Visit Diagnoses Not on filedocumented in this encounter"
--- OUTSIDE RECORDS SUMMARY | ~2019-09-30 | XMS | Encounter Summary ---
Demographics + + + | Address | [address] | | | [place] [address] | + + + | Home Phone | | + + + | Preferred Language | Unknown | + + + | Marital Status | Single | + + + | Anabaptism Affiliation | Unknown | + + + | Race | Unknown | + + + | Ethnic Group | Unknown | + + + Author + + + | Author | [facility] | | | and [place] | + + + | Organization | [facility] | | | [...] Team Providers + +------+ + | Care Spragger Name | Role | Phone | + +------+ + | Erika Ernst DO | PCP | | + +------+ + Reason for Visit + + + | Reason | Comments | + + + | Medication Refill | | + + + Encounter Details +--------+--------+ + + + | Date | Type | Department | Care Team | Description | +--------+--------+ + + + | 04/19/ | Refill | [place] [facility] | Erika Ernst, | Medication Refill | | 2017 | | [facility] | DO [address] | | | | | MEDICAL CLINIC [address] | [place] [address] | | | | | [address] [place], | [phone] | | | | | [place] [address] | | | | | | [phone] | | | +--------+--------+ + + + Social History + +-------+ [...] | + + + | Female | | + + + + + [...] 2018 | Visit | | DO [address] | | | | | | [place] [address] | | | | | | [phone] | | | | | | | | +--------+ + + + + | 10/30/ | Office | Primary Care | Erika Ernst, | | | 2019 | Visit | | DO [address] [place] | | | | | | [place] [address] | | | | | | [phone] | | | | | | | | +--------+ + + + + | 11/07/ | Appointment | Nutrition | Janel Webster | | | 2019 | | | [place] | | +--------+ + + + + | 11/28/ | Office | Otolaryngology | Anthony Alvarado MD | | | 2019 | Visit | | [address] | | | | | | [place], [place] | | | | | | [address] | | | | | | [phone] | | | | | | | | +--------+ + + + + | 02/09/ | Office | Neurology | Dhara, | | | 2019 | Visit | | DWAINE Ross [address] | | | [address] [place], | | | | | | [place] [address] | | | | | | [phone] | | | | | | | | +--------+ + + + + documented as of this encounter Visit Diagnoses Not on filedocumented in this encounter"
--- OUTSIDE RECORDS SUMMARY | ~2019-09-30 | XMS | Encounter Summary ---
Demographics + + + | Address | [address] | | | [place] [address] | + + + | Home Phone | | + + + | Preferred Language | Unknown | + + + | Marital Status | Single | + + + | Protestant Affiliation | Unknown | + + + | Race | Unknown | + + + | Ethnic Group | Unknown | + + + Author + + + | Author | [facility] | | | and [place] | + + + | Organization | [facility] | | | [...] Team Providers + +------+ + | Care Slip Sheeter Name | Role | Phone | + +------+ + | Erika Ernst DO | PCP | | + +------+ + Reason for Visit + + + | Reason | Comments | + + + | Follow-up | Asthma | + + + Encounter Details +--------+---------+ + + + | Date | Type | Department | Care Team | Description | +--------+---------+ + + + | 04/25/ | Office | [place] [facility] | Keith Ernsta Joie, | Asthma due to | | 2018 | Visit | [facility] | DO [address] | environmental | | | | MEDICAL CLINIC [address] | [place] [address] | allergies (Primary | | | | [address] [place], | [phone] | Dx); Insomnia due to | | | | [place] [address] | | other mental | | | | [phone] | | disorder; Oral | | | | | | thrush | +--------+---------+ + + + Social History + +-------+ +--------+------+ | Tobacco Use | Types | Packs/Day | Years | Date | | | | | Used | | + +-------+ +--------+------+ | Never Smoker | | | | | + +-------+ +--------+------+ + +---+---+---+ | Smokeless Tobacco: | | | | | Never Used | | | | + +---+---+---+ + + | Tobacco Cessation: Counseling Given: No | + + + + +---------+ + | Alcohol Use [...] + + + | Blood Pressure | 130/84 | 04/25/2019 8:27 AM | | | | | PDT | | + + + + + | Pulse | 80 | 04/25/2019 8:27 AM | | | | | PDT | | + + + + + | Temperature | - | - | | + + + + + | Respiratory Rate | 18 | 04/25/2019 8:27 AM | | | | | PDT | | + + + + + | Oxygen Saturation | 98% | 04/25/2019 8:27 AM | | | | | PDT | | + + + + + | Inhaled Oxygen | - | - | | | Concentration | | | | + + + + + | Weight | 168.3 kg (371 lb) | 04/25/2019 8:27 AM | | | | | PDT | | + + + + + | Height | 177.8 cm (5' 10") | 04/25/2019 8:27 AM | | | | | PDT | | + + + + + | Body Mass Index | 53.23 | 04/25/2019 8:27 AM | | | | | PDT | | + + + + + documented in this encounter Progress Erika Cespedes DO - 04/25/2019 8:30 AM PDTFormatting of this note might be different fro m the original. Subjective: Patient ID: [place] Suh is a 29 y.o. female. Here for ER FU, was seen for asthma on 04/21. Chest xray normal. She was given mucinex and p rior medications continued. She states they suggested not only her known environmental aller gy component but anxiety tie in. She is working with Carlin her mental health provider and saw her last week. VS and pox normal today. No wheezing but states does feel tight. Denies SOB, cough or fever. States feels as if she has thrush with sore tongue. Encouraged to rinse mouth after inhaler use. She has pulmonology appointment Jun 27. States traveling recent ly and this has made her insomnia worse. Has tried melatonin and would like to try something else. We will try trazodone since has antidepressant benefit as well. She is a non-smoker. Review of Systems As above Objective: BP 130/84 | Pulse 80 | Resp 18 | Ht 1.778 m (5' 10") | Wt (!) 168.3 kg (371 lb) | SpO2 98% | BMI 53.23 kg/m Physical Exam Constitutional: She is oriented to person, place, and time. She appears well-developed and well-nourished. No distress. HENT: Head: Normocephalic and atraumatic. Mouth/Throat: No oropharyngeal exudate. Mouth sl dry TM's clear Eyes: Pupils are equal, round, and reactive to light. Conjunctivae and EOM are normal. Cardiovascular: Normal rate, regular rhythm and normal heart sounds. No murmur heard. Pulmonary/Chest: Effort normal and breath sounds normal. No respiratory distress. Neurological: She is alert and oriented to person, place, and time. No cranial nerve defici t. Coordination normal. Skin: Skin is warm and dry. Capillary refill takes less than 2 seconds. Psychiatric: She has a normal mood and affect. Her behavior is normal. Judgment and thought content normal. Assessment: 1. Asthma due to environmental allergies 2. Insomnia due to other mental disorder 3. Oral thrush Plan: She will keep her appointment with Air Transportation Provider. No visible white patches but patient has had thrush before and does believe she is getting it again so we will treat since the TX has minimal SE. Nystatin suspension for TX of the oral thrush and rinse mouth after inhaler use . Trial trazodone 100 mg nightly for insomnia and continue work with mental health provider. documented in this en counter Plan of Treatment +--------+ + + + + | Date | Type | Specialty | Care Team | Description | +--------+ + + + + | 10/01/ | Office | Primary Care | Erika Ernst, | | | 2018 | Visit | | DO [address] | | | | | | [place] [address] | | | | | | [phone] | | | | | | | | +--------+ + + + + | 10/30/ | Office | Primary Care | Erika Ernst, | | | 2019 | Visit | | DO [address] [place] | | | | | | [place] [address] | | | | | | [phone] | | | | | | | [...] | | | | | [place] | | | | | | [address] | | | | | | [phone] | | | | | | | | +--------+ + + + + | 02/09/ | Office | Neurology | Dhara, | | | 2019 | Visit | | DWAINE Ross [address] | | | | [address] [place], | | | | | | [place] [address] | | | | | | [phone] | | | | | | | | +--------+ + + + + documented as of this encounter Visit Diagnoses + + | Diagnosis | + + | Asthma due to environmental allergies - Primary | + + | Insomnia due to other mental disorder | + + | Oral thrush Candidiasis of mouth | + + documented in this encounter
--- OUTSIDE RECORDS SUMMARY | ~2019-09-30 | XMS | Encounter Summary ---
Demographics + + + | Address | [address] | | | [place] [address] | + + + | Home Phone | | + + + | Preferred Language | Unknown | + + + | Marital Status | Single | + + + | Gnosticist Affiliation | Unknown | + + + | Race | Unknown | + + + | Ethnic Group | Unknown | + + + Author + + + | Author | [facility] | | | and [place] | + + + | Organization | [facility] | | | [...] Team Providers + +------+ + | Care Director Of Perioperative Services Name | Role | Phone | + +------+ + PCP | Unavailable | + +------+ + Encounter Details +--------+ + + + + | Date | Type | Department | Care Team | Description | +--------+ + + + + | 06/14/ | [facility] | [facility] | Jenise Benitez, | | | 2016 | Encounter | [facility] | EXPLOSIVE ORDNANCE MANAGER [address] | | | | | MEDICAL CLINIC [address] | [place] [address] | | | | | [address] [place], | [phone] | | | | | [place] [address] | | | | | | [phone] | | | +--------+ + + + [...] | | | | | [place] [address] | | | | | | [phone] | | | | | | | | +--------+ + + + + | 10/30/ | Office | Primary Care | Erika Ernst, | | | 2019 | Visit | | DO [address] | | | | | | [place] [address] | | | | | | [phone] | | | | | | | | +--------+ + + + + | 11/07/ | Appointment | Nutrition | Janel Webster | | | 2019 | | | [place] | | +--------+ + + + + | 11/28/ | Office | Otolaryngology | Anthony Alvarado MD | | | 2019 | Visit | | [address] | | | | | | [place], [place] | | | | | | [address] | | | | | | [phone] | | | | | | | | +--------+ + + + + | 02/09/ | Office | Neurology | Dhara, | | | 2019 | Visit | | [address] Ross [address] | | | | | [address] [place], | | | | | | [place] [address] | | | | | | [phone] | | | | | | | | +--------+ + + + + documented as of this encounter Visit Diagnoses Not on filedocumented in this encounter"
--- OUTSIDE RECORDS SUMMARY | ~2019-09-30 | XMS | Encounter Summary ---
Demographics + + + | Address | [address] | | | [place] [address] | + + + | Home Phone | | + + + | Preferred Language | Unknown | + + + | Marital Status | Single | + + + | Temple Affiliation | Unknown | + + + | Race | Unknown | + + + | Ethnic Group | Unknown | + + + Author + + + | Author | [facility] | | | and [place] | + + + | Organization | [facility] | [...] Team Providers + +------+ + | Care Content Coordinator Name | Role | Phone | + +------+ + PCP | Unavailable | + +------+ + Encounter Details +--------+ + + + + | Date | Type | Department | Care Team | Description | +--------+ + + + + | 11/15/ | [facility] | Nicanor Mckeon | | | 2016 | Encounter | HOSPITAL NURSERY | MD Caryn [address] | | | | | [address] | [place] | | | | | [place] | [address] | | | | | [address] | [phone] | | | | | [phone] | | | +--------+ + + + [...] 2019 | Visit | | [address] | | | | | | [place] [address] | | | | | | [phone] | | | | | | | | +--------+ + + + + | 10/30/ | Office | Primary Care | Erika Ernst, | | | 2019 | Visit | | DO [address] [place] | | | | | | [place] [address] | | | | | | [phone] | | | | | | | [...] [place] | | | | | | [address] | | | | | | [phone] | | | | | | | | +--------+ + + + + | 02/09/ | Office | Neurology | Dhara, | | | 2020 | Visit | | DWAINE Ross [address] | | [address] [place], | | | | | | [place] [address] | | | | | | [phone] | | | | | | | | +--------+ + + + + documented as of this encounter Visit Diagnoses Not on filedocumented in this encounter"
--- OUTSIDE RECORDS SUMMARY | ~2019-09-30 | XMS | Encounter Summary ---
Demographics + + + | Address | [address] | | | [place] [address] | + + + | Home Phone | | + + + | Preferred Language | Unknown | + + + | Marital Status | Single | + + + | Alevism Affiliation | Unknown | + + + | Race | Unknown | + + + | Ethnic Group | Unknown | + + + Author + + + | Author | Located [facility] | | | and [place] | + + + | Organization | Located [facility] | | [...] Team Providers + +------+ + | Care Linux Systems Analyst Name | Role | Phone | + +------+ + | Erika Ernst DO | PCP | | + +------+ + Encounter Details +--------+ + + + + | Date | Type | Department | Care Team | Description | +--------+ + + + + | 02/14/ | Telephone | [facility] [facility] | Inocencio Noriega | | | 2019 | | [facility] | MD [address] | | | | | [address] | [address] | | | | | [place], [place] | [place] [address] | | | | | [address] | [phone] | | | | | [phone] | | | +--------+ + + + [...] 10/01/ | Office | Primary Care | Eriak Ernst, | | | 2018 | Visit | | DO [address] [place] | | | | | | [place] [address] | | | | | | [phone] | | | | | | | | +--------+ + + + + | 10/30/ | Office | Primary Care | Erika Ernst, | | | 2019 | Visit | | DO [address] [place] | | | | | | [place] [address] | | | | | | [phone] | | | | | | | [...] [place] | | | | | | [address] | | | | | | [phone] | | | | | | | | +--------+ + + + + | 02/09/ | Office | Neurology | Dhara, | | | 2019 | Visit | | DWAINE Ross [address] | | [address] [place], | | | | | | [place] [address] | | | | | | [phone] | | | | | | | | +--------+ + + + + documented as of this encounter Visit Diagnoses Not on filedocumented in this encounter"
--- OUTSIDE RECORDS SUMMARY | ~2019-09-30 | XMS | Encounter Summary ---
Demographics + + + | Address | [address] | | | [place] [address] | + + + | Home Phone | | + + + | Preferred Language | Unknown | + + + | Marital Status | Single | + + + | Jehovah'S Witness Affiliation | Unknown | + + + | Race | Unknown | + + + | Ethnic Group | Unknown | + + + Author + + + | Author | [facility] | | | and [place] | + + + | Organization | [facility] | | | [...] Team Providers + +------+ + | Care Aircraft Restorer Name | Role | Phone | + +------+ + | Erika Ernst DO | PCP | | + +------+ + Reason for Referral Evaluate & Treat (Routine) + + + + + + + | Status | Reason | Specialty | Diagnoses / | Referred By | Referred To | | | | | Procedures | Contact | Contact | + + + + + + + | Authorized | Specialty | Orthopedic | Diagnoses | Klever, | Daniel, | | | Services | Surgery | Injury of | Erika A, DO | Rei Adan, | | | Required | | right hand, | [address] | [address] | | | | | subsequent | [place], | [address] | | | | | encounter | [place] [address] | [place], [place] | | | | | | Phone: | [phone] Phone: | | | | | | [phone] | [phone] | | | | | | Fax: | Fax: | | | | | | [phone] | [phone] | + + + + + + + Encounter Details +--------+ + + + + | Date | Type | Department | Care Team | Description | +--------+ + + + + | 08/28/ | Orders Only | [facility] [facility] | Erika Ernst, | Injury of right | | 2019 | | [facility] | DO [address] [place] | hand, subsequent | | | | [facility] | [place] [address] | encounter (Primary | | | | [address] [place], | [phone] | Dx) | | | | [place] [address] | | | | | | [phone] | | | +--------+ + + + [...] | | 2018 | Visit | | [address] | | | | | | [place] [address] | | | | | | [phone] | | | | | | | | +--------+ + + + + | 10/30/ | Office | Primary Care | Erika Ernst, | | | 2019 | Visit | | DO [address] [place] | | | | | | [place] [address] | | | | | | [phone] | | | | | | | | +--------+ + + + + | 11/07/ | Appointment | Nutrition | Janel Webster | | 2019 | | | [place] [place] | | +--------+ + + + + | 11/28/ | Office | Otolaryngology | Anthony Alvarado MD | | 2019 | Visit | | [address] | | | | | | [place], [place] | | | | | | [address] | | | | | | [phone] | | | | | | | | +--------+ + + + + | 02/09/ | Office | Neurology | Dhara, | | | 2019 | Visit | | DWAINE Ross [address] | | | [address] [place], | | | | | | [place] [address] | | | | | | [phone] | | | | | | | | +--------+ + + + + + + +--------+ + + | Name | Type | Priori | Associated Diagnoses | Order Schedule | | | | ty | | | + + +--------+ + + | Orthopedic Surgery, | Outpatient | Routin | Injury of right | Ordered: 08/28/2019 | | External - AMB | Referral | e | hand, subsequent | | | Referral | | | encounter | | + + +--------+ + + documented as of this encounter Visit Diagnoses + + | Diagnosis | + + | Injury of right hand, subsequent encounter - Primary | + + documented in this encounter"
--- OUTSIDE RECORDS SUMMARY | ~2019-09-30 | XMS | Encounter Summary ---
Demographics + + + | Address | [address] | | | [place] [address] | + + + | Home Phone | | + + + | Preferred Language | Unknown | + + + | Marital Status | Single | + + + | Roman Catholic Affiliation | Unknown | + + + | Race | Unknown | + + + | Ethnic Group | Unknown | + + + Author + + + | Author | [facility] | | | and [place] | + + + | Organization | [facility] | | | and [...] Team Providers + +------+ + | Care Furnace Builder Name | Role | Phone | + +------+ + | Erika Ernst DO | PCP | | + +------+ + Reason for Referral Consultation (Routine) +--------+ + + + + + | Status | Reason | Specialty | Diagnoses / | Referred By | Referred To | | | | | Procedures | Contact | Contact | +--------+ + + + + + | Closed | Specialty | Neurology | Diagnoses | Travis Malone | Nichole, | | | Services | | Neuropathy | C, 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 [address] | Luis Rubin MD | | | Required | | of right | [address], | [address] | | | | | upper | [place] [address] [place] | [address], [address] [place] | | | | | extremity | [place], [place] | [place], [place] | | | | | Procedures | [address] | [address] Phone: | | | | | [facility] | Phone: | [phone] | | | | | | [phone] | Fax: | | | | | | Fax: | [phone] | | | | | | [phone] | | +--------+ + + + + + Reason for Visit + + + | Reason | Comments | + + + | Finger Injury | right index | + + + | Wrist Injury | right wrist injury | + + + Evaluate & Treat (Routine) +--------+ + + + + + | Status | Reason | Specialty | Diagnoses / | Referred By | Referred To | | | | | Procedures | Contact | Contact | +--------+ + + + + + | Closed | Specialty | Orthopedic | Diagnoses | Yolanda, | [facility] | | | Services | Surgery | Injury of | Alem L, | Orthopedic | | | Required | | right index | 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 | [address] | | | | | finger, | [address] | [address] [place] | | | | | initial | [address] [place] | [place], [place] | | | | | encounter | [place], [place] | [address] | | | | | Procedures | [address] | Phone: | | | | | [place] | Phone: | [phone] | | | | | | [phone] | Fax: | | | | | | Fax: | [phone] | | | | | | [phone] | | +--------+ + + + + + Encounter Details +--------+---------+ + + + | Date | Type | Department | Care Team | Description | +--------+---------+ + + + | 05/21/ | Office | [facility] [facility] | Travis Malone, DWAINE | Other sprain of | | 2019 | Visit | [facility] | [address] | right index finger, | | | | [address] [place] | [place], [place] | initial encounter | | | | [place], [place] | [address] | (Primary Dx); | | | | [address] | [phone] | Neuropathy of right | | | | [phone] | | upper extremity | +--------+---------+ + + + Social History [...] this encounter Last Filed Vital Signs + +---------+ + + | Vital Sign | Reading | Time Taken | Comments | + +---------+ + + | Blood Pressure | 121/82 | 05/21/2019 4:34 PM | | | | | PDT | | + +---------+ + + | Pulse | 123 | 05/21/2019 4:34 PM | | | | | PDT | | + +---------+ + + | Temperature | - | - | | + +---------+ + + | Respiratory Rate | 20 | 05/21/2019 4:34 PM | | | | | PDT | | + +---------+ + + | Oxygen Saturation | 98% | 05/21/2019 4:34 PM | | | | | PDT | | + +---------+ + + | Inhaled Oxygen | - | - | | | Concentration | | | | + +---------+ + + | Weight | - | - | | + +---------+ + + | Height | - | - | | + +---------+ + + | Body Mass Index | - | - | | + +---------+ + + documented in this encounter Progress Travis Jeffers FNP - 05/21/2019 4:30 PM PDT Orthopedic Clinic Note Patient Name: Andrea Suh | Age: 29 y.o. | : 1990 | Medical Record Number:[id number] | Author: MOHSEN Martinez | Date of Encounter: 05/21/2019 Chief complaint Chief Complaint Patient presents with Finger Injury right index Wrist Injury right wrist injury Date of injury March 2019 History of Present Illness Andrea Suh is a 29 y.o. female established patient of the orthopedic clinic with a new injury- she suffered a right index finger injury in March 2019 when a child ran into a wa ter bottle that she was holding with her right index finger. On May 06 2019 she visited [facility] the walk-in clinic and x-rays were performed. The patient rates her finger pain a 4 out of 10 today. She incidentally makes note of some glove type intermittent positionally sens itive right wrist numbness since a different injury to the right wrist. I recommended that she reported this to her neurologist who has been managing her for a work injury related con cussion, and had sent a message to her neurologist with the recommendation that she receive a right upper extremity nerve conduction and electromyography study. Patient agrees to this so an order will be placed as a part of today's encounter. Review of Pertinent Systems Except as above, all other systems reviewed today are negative. Patient denies any visit p heron associated neurologic and vascular system symptoms of numbness, tingling or weakness during this history. Medications Current Outpatient Medications on File Prior to Visit Medication Sig Dispense Refill albuterol 2.5 mg/3 mL nebulizer solution Inhale 1-2 treatments in nebulizer every 20 mi nutes for 3 doses, then 1-4 treatments every 1-4 hours as needed 60 vial 0 albuterol-ipratropium (COMBIVENT RESPIMAT) 100-20 mcg/puff inhaler Inhale 1 puff into t he lungs every 4 hours as needed for Shortness of Breath. 1 Inhaler 5 azelastine 0.1% nasal spray instill 1 to 2 spray into each nostril twice a day if neede d 1 beclomethasone (QVAR) 80 mcg/puff inhaler Inhale 2 puffs into the lungs 2 times daily. 2 Inhaler 11 busPIRone (BUSPAR) 15 mg tablet Take 15 mg TID 90 tablet 5 Cetirizine HCl (ZYRTEC PO) Take by mouth. Once a week Cholecalciferol (VITAMIN D3) 22295 units TABS Take 1 tablet by mouth Once a week for 16 doses. 16 tablet 0 cyclobenzaprine (FLEXERIL) 10 mg tablet TID prn 30 tablet 2 diclofenac (VOLTAREN) 1% GEL apply 1 gram topically twice a day if needed 100 g 3 diclofenac (VOLTAREN) 1% GEL Apply 4 g topically 4 times daily. 100 g 2 diphenhydrAMINE (BENADRYL) 25 MG capsule Take 25 mg by mouth nightly as needed for Itch ing. ferrous sulfate 325 mg tablet Take 1 tablet by mouth 2 times daily. 60 tablet 5 fexofenadine-pseudoePHEDrine (JOSÉ ANTONIO-D 24) 180-240 MG per tablet Take 1 tablet by mout h. Fluocinonide 0.1 % CREA apply A SMALL AMOUNT to affected area twice a day 0 fluticasone (FLONASE ALLERGY RELIEF) 50 mcg/nasal spray 1 spray by Nasal route Daily as needed for Allergies. meclizine (ANTIVERT) 12.5 mg tablet Take 1 tablet by mouth every 6 hours as needed. Prn dizziness 60 tablet 0 montelukast (SINGULAIR) 10 mg tablet Take 1 tablet by mouth nightly. 30 tablet 11 pseudoephedrine-guaiFENesin (MUCINEX D) 60-600 mg per 12 hr tablet Take 1 tablet by codi th 2 times daily. 14 tablet 0 QVAR REDIHALER 80 MCG/ACT inhaler traMADol (ULTRAM) 50 mg tablet Take 50 mg by mouth every 6 hours as needed. No current facility-administered medications on file prior to visit. Allergies Latex; Lexapro [escitalopram]; Oxycodone; Deblitane [norethindrone]; Hydrocodone; Uncoded n onscreenable allergen; and Adhesive & tape Vitals BP 121/82 | Pulse 123 | Resp 20 Temp | Wt | BMI There is no height or weight on file t o calculate BMI. Imaging/Labs/Special Study Results Analysis of the x-rays by myself prior to and during the encounter with the patient coincid es with the findings below from the radiologist. Visit problem associated images and finding s reviewed by me today with the patient include: Xr Finger Right 2 + Vw Result Date: 05/07/2019 EXAMINATION: XR FINGER RIGHT 2 + VW HISTORY: right index finger PIP joint pain post injury two months ago COMPARISON STUDY: None FINDINGS: Images in multiple views showed no significa nt soft tissue or bony abnormality. If concern for acute fracture remains clinically follow- up images in 10 to 14 days recommended. The joint spaces are maintained.. IMPRESSION: No acute finding . New distinct joint degenerative changes. Dictated by: aYneli Bedolla Xr Wrist Right 3 + Vw Result Date: 05/11/2019 EXAMINATION: XR WRIST RIGHT 3 + VW HISTORY: WRIST INJURY COMPARISON STUDY: MRI wrist 2018. FINDINGS: Postsurgical changes noted at the ulnar aspect of the wrist with 3 surgical radiopaque structures projecting at the distal ulna. No acute bone finding identified. No c arpal subluxation. If concern for acute fracture remains clinically follow-up images in 10 t o 14 days recommended. . IMPRESSION: 1. Interval surgery as detailed above. 2. No acute bone finding identified. Dic tated by: Chris Bedolla Physical Exam Ortho Hand & Fingers PE General: Patient is a morbidly obese but otherwise healthy appearing young adult female who is alert and oriented and in no distress. Inspection: Normal contour of the entire aspect of the hand. Normal contour to the entire aspect of the fingers. Skin: Normal intact skin over entire aspect of the hand. Clean dry and intact appearing surgical scars are noted over the hand and wrist dorsum. Normal intact skin over entire aspect of all the fingers. ROM: AROM index finger: MCP: 90* flexion, 30-45* extension, 20* adduction, 25* abduction; PIP: 1 20* flexion, 120* extension; DIP: 80* flexion, 80 extension Pain: Diffuse nonspecific tenderness over the entire next finger Stability: Second ray joints stable, hyperextension is intact, no flexion crossover is noted Neurologic: Normal 5/5 strength to all muscles. Abnormal sensation to radial, median and ulnar nerves. The patient's sensations of pain an d whole hand glove type numbness are not consistent with the normal orthopedic findings. Qu matt neuropathy. Vascular: 2+ pulses to radial and ulnar arteries. Assessment Andrea was seen today for finger injury and wrist injury. Diagnoses and all orders for this visit: Other sprain of right index finger, initial encounter Discussion/Procedures Apparently a mixup with the radiology report led to recommendation for for orthopedic refe rral. In the body of the radiologist's report he makes no mention of any abnormal findings. In the impression section which was likely the only section reviewed by the walk-in clinic , he made mention of what he called "new distinct joint degenerative changes". There is a n otation by the walk-in clinic that leads me to believe this referral was degenerated over co ncerns from a typo. "Notes recorded by Alem Guerrero APRN-DWAINE on 05/07/2019 at 8:43 PDT Your x-ray did not show any fracture or acute process. There is some new degenerative kareem nges in the joint indicating some arthritis which could be the result of the injury and the reason for your pain. Please call patient with results." Apparently the radiologist meant to say NO distinct joint degenerative changes. Plan of Care Plan: Restrictions: General: Weight bearing activity as tolerated with no limitations Medication: No changes Therapy: Home RICE (Rest, Ice, Compression, & Elevation) therapy PRN Patient advised of their right to have diagnostic testing, health care treatment and/or ser vices at a facility other than [facility]. Follow-up Return for consultation with neurology is recommended. Active Problems, Medical and Surgical Histories Patient Active Problem List Diagnosis Asthma due to environmental allergies Class 3 severe obesity due to excess calories without serious comorbidity in adult Essential hypertension TMJ (temporomandibular joint disorder) Chronic lumbar pain Left hip pain PTSD (post-traumatic stress disorder) Chronic hand pain, right Vitamin D deficiency Environmental allergies Anxiety Painful menstrual periods Chronic pain of both ears Insomnia due to other mental disorder Non-seasonal allergic rhinitis due to pollen Deviated nasal septum Post-traumatic brain syndrome S/P right ECU tenosynovectomy on 03/20/19 Moderate persistent asthma with acute exacerbation Iron deficiency Past Medical History: Diagnosis Date Allergic rhinitis Anemia Asthma Dysmenorrhea Hypertension Hypothyroid Iron deficiency Obesity ALVAREZ (obstructive sleep apnea) Periodontal disease, unspecified TMJ pain dysfunction syndrome Past Surgical History: Procedure Laterality Date EYE SURGERY HAND TENDON SURGERY Right 03/20/2019 Procedure: REPAIR E.C.U. Tendon; Surgeon: Inocencio Noriega MD; Location: [facility] SURGERY RIGHT KIDNER PROCEDURE 01/20/2016 Surgeon: Fani Mahajan MD; Location: [facility] TENDON RELEASE TONSILLECTOMY WISDOM TOOTH EXTRACTION Family History Problem Relation Age of Onset Other (see comment) Mother gallbladder disease Hypertension Father Other (see comment) Father arrhymthmia Breast cancer Sister Cervical cancer Maternal Grandmother Heart attack Maternal Aunt [place] Social History Socioeconomic History Marital status: Single Spouse name: Not on file Number of children: Not on file Years of education: Not on file Highest education level: Not on file Tobacco Use Smoking status: Never Smoker Smokeless tobacco: Never Used Substance and Sexual Activity Alcohol use: No Alcohol/week: 0.0 oz Frequency: Never Binge frequency: Never Drug use: No Sexual activity: Yes Partners: Male control/protection: Condom I attest to the fact that I have reviewed the patient's medical, surgical, family and socia l histories, medications, allergies, and their vital signs recorded by my activities assistant today, a s found in this chart note. Electronically signed by: MOHSEN Martinez 05/21/2019 at 18:23 Note: Part of this report was transcribed using voice recognition software. Every effort wa s made to ensure accuracy. However, inadvertent computerized electrical systems drafter errors may be pre sent. CC: Erika Ernst, DO -Thank you for choosing our clinic for your orthopedic care today- documented in this encounter Plan of Treatment +--------+ + + + + | Date | Type | Specialty | Care Team | Description | +--------+ + + + + | 10/01/ | Office | Primary Care | Erika Ernst, | | | 2018 | Visit | | DO [address] [place] | | | | | | [place] [address] | | | | | | [phone] | | | | | | | | +--------+ + + + + | 10/30/ | Office | Primary Care | Erika Ernst, | | | 2019 | Visit | | DO [address] [place] | | | | | | [place] [address] | | | | | | [phone] | | | | | | | [...] [place] | | | | | | [address] | | | | | | [phone] | | | | | | | | +--------+ + + + + | 02/09/ | Office | Neurology | Dahra, | | | 2019 | Visit | | DWAINE Ross [address] [place], | | | | | | [place] [address] | | | | | | [phone] | | | | | | | | +--------+ + + + + + + +--------+ + + | Name | Type | Priori | Associated Diagnoses | Order Schedule | | | | ty | | | + + +--------+ + + | * [facility] [facility] | Outpatient | Routin | Neuropathy of | Ordered: 06/06/2019 | | [facility] - AMB | Referral | e | right upper | | | Referral | | | extremity | | + + +--------+ + + documented as of this encounter Visit Diagnoses + + | Diagnosis | + + | Other sprain of right index finger, initial encounter - Primary | + + | Neuropathy of right upper extremity | + + documented in this encounter
--- OUTSIDE RECORDS SUMMARY | ~2019-09-30 | XMS | Encounter Summary ---
Demographics + + + | Address | [address] | | | [place] [address] | + + + | Home Phone | | + + + | Preferred Language | Unknown | + + + | Marital Status | Single | + + + | Yazdanism Affiliation | Unknown | + + + | Race | Unknown | + + + | Ethnic Group | Unknown | + + + Author + + + | Author | [facility] | | | and [place] | + + + | Organization | [facility] | | | [...] Team Providers + +------+ + | Care Ordnance Corps Officer Name | Role | Phone | + +------+ + | Erika Ernst DO | PCP | | + +------+ + Reason for Visit + + + | Reason | Comments | + + + | Procedure | Nerve Block | + + + Encounter Details +--------+ + + + + | Date | Type | Department | Care Team | Description | +--------+ + + + + | 02/14/ | Telephone | [place] [facility] | Inocencio Noriega | Procedure (Nerve | | 2019 | | [facility] | MD [address] | Block) | | | | [address] | [address] | | | | | [place], [place] | [place] [address] | | | | | [address] | [phone] | | | | | [phone] | | | +--------+ + + + [...] | | | | | [place] [address] | | | | | | [phone] | | | | | | | | +--------+ + + + + | 10/30/ | Office | Primary Care | Erika Ernst, | | | 2019 | Visit | | DO [address] | | | | | | [place] [address] | | | | | | [phone] | | | | | | | [...] [place] | | | | | | [address] | | | | | | [phone] | | | | | | | | +--------+ + + + + | 02/09/ | Office | Neurology | Dhara, | | | 2020 | Visit | | DWAINE Ross [address] | | | | [address] [place], | | | | | | [place] [address] | | | | | | [phone] | | | | | | | | +--------+ + + + + documented as of this encounter Visit Diagnoses Not on filedocumented in this encounter"
--- OUTSIDE RECORDS SUMMARY | ~2019-09-30 | XMS | Encounter Summary ---
Demographics + + + | Address | [address] | | | [place] [address] | + + + | Home Phone [...] Providers + +------+ + | Care Child Support Officer Name | Role | Phone | + +------+ + | Erika Ernst DO | PCP | | + +------+ + Reason for Visit + + + | Reason | Comments | + + + | Wrist Pain | | + + + Encounter Details +--------+ + + + + | Date | Type | Department | Care Team | Description | +--------+ + + + + | 07/25/ | Emergency | [facility] | Amparo Timmons | Encounter for | | 2018 | | [facility] | C, SENIOR PRO[employer] [address] | postoperative wound | | | | CENTER [address] | [address] [place] | check (Primary Dx) | | | | [address] [place] | [address] | | | | | [address] | | | | | | [phone] | | | +--------+ + + + [...] + + + | Blood Pressure | 130/93 | 07/25/2018 5:30 PM | | | | | PDT | | + + + + + | Pulse | 77 | 07/25/2018 5:30 PM | | | | | PDT | | + + + + + | Temperature | 36.6 C (97.9 F) | 07/25/2018 5:30 PM | | | | | PDT | | + + + + + | Respiratory Rate | 18 | 07/25/2018 5:30 PM | | | | | PDT | | + + + + + | Oxygen Saturation | 99% | 07/25/2018 5:30 PM | | | | | PDT | | + + + + + | Inhaled Oxygen | - | - | | | Concentration | | | | + + + + + | Weight | 154.2 kg (340 lb) | 07/25/2018 5:30 PM | | | | | PDT | | + + + + + | Height | 177.8 cm (5' 10") | 07/25/2018 5:30 PM | | | | | PDT | | + + + + + | Body Mass Index | 48.78 | 07/25/2018 5:30 PM | | | | | PDT | | + + + + + documented in this encounter Discharge Instructions Instructions Amparo Timmons ARNP - 07/25/2018As discussed wound appears to be healing well. Check for any consistent fever above 100.5. Since the Zofran is not working did send promethazine as needed for symptoms. documented in this encounter Medications at Time of Discharge + + + +---------+ + + | Medication | Sig | Dispensed | Refills | Start | End Date | | | | | | Date | | + + + +---------+ + + | amLODIPine | Take 1 tablet by | 30 | 11 | 04/02/20 | | | (NORVASC) 5 mg | mouth Daily. | tablet | | 18 | 8 | | tablet | | | | | | + + + +---------+ + + | beclomethasone | Inhale 1 puff into | 1 | 11 | 05/02/20 | | | (QVAR) 80 mcg/puff | the lungs 2 times | Inhaler | | 18 | 8 | | inhaler | daily. | | | | | + + + +---------+ + + | busPIRone (BUSPAR) | take 0.5 tablet by | | 0 | 06/25/20 | | | 10 MG tablet | mouth every morning | | | 18 | 8 | | | and 2.5 tablets at | | | | | | | bedtime | | | | | + + + +---------+ + + | busPIRone (BUSPAR) | Take one 5mg tab in | 90 | 5 | 06/08/20 | | | 5 mg tablet | the AM and two 5mg | tablet | | 18 | 8 | | | tabs to equal 10 mg | | | | | | | in the PM | | | | | + + + +---------+ + + | ferrous sulfate | Take by mouth. | | 0 | 06/30/20 | | | 325 mg tablet | | | | 17 | 8 | + + + +---------+ + + [...] + + + +---------+ + + | naproxen | Take 500 mg by mouth | | 0 | | | | (NAPROSYN) 500 mg | 2 times daily (with | | | | 8 | | tablet | breakfast & | | | | | | | dinner). | | | | | + + + +---------+ + + | NAPROXEN DR 500 MG | take 1 tablet by | | 0 | 05/31/20 | | | EC tablet | mouth twice a day if | | | 18 | 8 | | | needed for pain | | | | | + + + +---------+ + + | ondansetron | take 1 tablet by | | 0 | 07/20/20 | | | (ZOFRAN) 4 mg tablet | mouth three times a | | | 18 | 8 | | | day if needed for | | | | | | | nausea for UP TO 7 | | | | | | | DAYS | | | | | + + + +---------+ + + | promethazine | Take 1 tablet by | 20 | 0 | 07/25/20 | | | (PHENERGAN) 25 mg | mouth every 4 hours | tablet | | 18 | 8 | | tablet | as needed. | | | | | + + + +---------+ + + | QVAR REDIHALER 40 | inhale 1 puff by | | 0 | 04/24/20 | | | MCG/ACT inhaler | mouth twice a day | | | 18 | 8 | + + + +---------+ + + | traMADol (ULTRAM) | Take 50 mg by mouth. | | 0 | 06/06/20 | | | 50 mg tablet | | | | 18 | 8 | + + + +---------+ + + | traMADol (ULTRAM) | Take 1 tablet by | 30 | 0 | 06/06/20 | | | 50 mg tablet | mouth every 8 hours | tablet | | 18 | 8 | | | as needed. | | | | | + + + +---------+ + + | VENTOLIN HFA 108 | INSTILL 2 PUFFS BY | 18 g | 11 | 03/19/20 | | | (90 Base) MCG/ACT | MOUTH EVERY 4 TO 6 | | | 18 | 8 | | inhalerIndications: | HOURS NEEDED | | | | | | Asthma, unspecified | | | | | | | asthma severity, | | | | | | | unspecified whether | | | | | | | complicated, | | | | | | | unspecified whether | | | | | | | persistent | | | | | | + [...] | | | | | [place] [address] | | | | | | [phone] | | | | | | | | +--------+ + + + + | 10/30/ | Office | Primary Care | Erika Ernst, | | | 2019 | Visit | | DO [address] [place] | | | | | | [place] [address] | | | | | | [phone] | | | | | | | [...] [place] | | | | | | [address] | | | | | | [phone] | | | | | | | | +--------+ + + + + | 02/09/ | Office | Neurology | Dhara, | | | 2020 | Visit | | DWAINE Ross [address] [place], | | | | | | [place] [address] | | | | | | [phone] | | | | | | | | +--------+ + + + + + +------+--------+ + + | Name | Type | Priori | Associated Diagnoses | Date/Time | | | | ty | | | + +------+--------+ + + | ED INFORMATION | YAR[facility] | Routin | | 07/25/2018 5:26 PM | | EXCHANGE | | e | | PDT | + +------+--------+ + + documented as of this encounter Procedures + +--------+ + + + | Procedure Name | Priori | Date/Time | Associated Diagnosis | Comments | | | ty | | | | + +--------+ + + + | ED INFORMATION | Routin | 07/25/2018 | | | | EXCHANGE | e | 5:26 PM | | | | | | PDT | | | + +--------+ + + + +---+--------+ | | | | | Proced | | | ure | | | Note - | | | Soto, | | | Lab In | | | | | | Hlseve | | | n - | | | | | | 2017 | | | 5:27 | | | PM PDT | | | | | | Format | | | ting | | | of | | | this | | | note | | | might | | | be | | | differ | | | ent | | | from | | | the | | | origin | | | al.SOTO | | | E?NOTI | | | FICATI | | | ON?10/ | | | 24/201 | | | 8 | | | 17:24? | | | NOBLIT | | | , | | | ANDREA | | | C?MRN: | | | | | | [id number] | | | [id number] | | | ecurit | | | y | | | Events | | | No | | | recent | | | | | | Securi | | | ty | | | Events | | | | | | curren | | | tly on | | | | | | fileED | | | Care | | | Guidel | | | inesTh | | | ere | | | are | | | curren | | | tly no | | | ED | | | Care | | | Guidel | | | ron | | | in | | | YARITZA | | | for | | | this | | | patien | | | t. | | | Please | | | check | | | your | | | facili | | | ty's | | | medica | | | l | | | record | | | s | | | system | | | .Crite | | | dany | | | met 2 | | | | | | Facili | | | ties | | | In 90 | | | DaysCa | | | re | | | Provid | | | ersPro | | | vider | | | PRC | | | Type | | | Phone | | | Fax | | | Servic | | | e | | | Dates | | | CHAD | | | , | | | ERIKA, | | | DO | | | Family | | | | | | Medici | | | ne: | | | Geriat | | | radha | | | Medici | | | ne | | | (541) | | | [phone] | | | 38 | | | (541) | | | [phone] | | | 20 | | | Curren | | | t | | | ERIKA | | | A | | | CHAD | | | | | | Primar | | | y Care | | | (541) | | | | | | [phone] | | | 38 | | | (541) | | | [phone] | | | 20 | | | Curren | | | t | | | Ghada | | | johnny | | | , | | | Eloina | | | K MD | | | Primar | | | y Care | | | | | | Curren | | | t | | | Maryjane | | | line | | | Tigre | | | , [place] | | | Primar | | | y Care | | | (541) | | | | | | [phone] | | | 00 | | | Curren | | | t | | | Recent | | | | | | Emerge | | | ncy | | | Depart | | | ment | | | Visit | | | [facility] | | | yAdmit | | | Date | | | Facili | | | ty | | | City | | | State | | | Type | | | Major | | | Type | | | Diagno | | | ses or | | | Chief | | | | | | Compla | | | int | | | Oct | | | 24, | | | 2018 | | | [place] | | | [place] [facility] [place] | | | Emerge | | | ncy | | | Emerge | | | ncy | | | Wrist | | | | | | Infect | | | ion | | | Aug | | | 30, | | | 2018 | | | [facility] | | | [place] | | | [place] | | | Emerge | | | ncy | | | Emerge | | | ncy | | | | | | Hypoth | | | yroidi | | | sm, | | | unspec | | | ified | | | | | | Sprain | | | of | | | unspec | | | ified | | | ligame | | | nt of | | | left | | | ankle, | | | | | | initia | | | l | | | encoun | | | ter | | | | | | Unspec | | | ified | | | injury | | | of | | | left | | | ankle, | | | | | | initia | | | l | | | encoun | | | ter | | | | | | Overex | | | ertion | | | from | | | prolon | | | ged | | | static | | | or | | | awkwar | | | d | | | postur | | | es, | | | initia | | | l | | | encoun | | | ter | | | | | | Slippi | | | ng, | | | trippi | | | ng and | | | | | | stumbl | | | ing | | | withou | | | t | | | fallin | | | g, | | | unspec | | | ified, | | | | | | initia | | | l | | | encoun | | | ter | | | Other | | | long | | | term | | | (curre | | | nt) | | | drug | | | therap | | | y | | | Essent | | | ial | | | (prima | | | ry) | | | hypert | | | ension | | | | | | Allerg | | | y | | | status | | | to | | | narcot | | | ic | | | agent | | | status | | | | | | Recent | | | | | | Inpati | | | ent | | | Visit | | | [facility] | | | yNo | | | record | | | ed | | | inpati | | | ent | | | visits | | | . E.D. | | | Visit | | | Count | | | (12 | | | mo.)Fa | | | cility | | | | | | Visits | | | | | | [place] [facility] | | | al [facility] | | [facility] | | | al 3 | | | Total | | | 4 | | | Note: | | | Visits | | | | | | indica | | | te | | | total | | | known | | | visits | | | . | | | PDMP | | | Report | | | PDMP | | | report | | | does | | | not | | | meet | | | criter | | | ia.The | | | above | | | | | | inform | | | ation | | | is | | | provid | | | ed for | | | the | | | sole | | | purpos | | | e of | | | patien | | | t | | | treatm | | | ent. | | | Use of | | | this | | | inform | | | ation | | | beyond | | | the | | | terms | | | of | | | Data | | | Sharin | | | g | | | Memora | | | ndum | | | of | | | Unders | | | tandin | | | g and | | | Licens | | | e | | | Agreem | | | ent is | | | | | | prohib | | | ited. | | | In | | | certai | | | n | | | cases | | | not | | | all | | | visits | | | may | | | be | | | repres | | | ented. | | | | | | Consul | | | t the | | | aforem | | | ention | | | ed | | | facili | | | ties | | | for | | | additi | | | onal | | | inform | | | ation. | | | ? | | | 2018 | | | [employer] | | | tive | | | [employer] | | | l | | | [employer] | | | logies | | | , [employer] | | | - | | | [place] | | | [place] | | | [place], | | | [place] - | | | [email or web address] | | | ollect | | | ivemed | | | icalte | | | [email or web address] | | | | +---+--------+ documented in this encounter Visit Diagnoses + + | Diagnosis | + + | Encounter for postoperative wound check - Primary Other specified aftercare following | | surgery | + + documented in this encounter
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
--- OUTSIDE RECORDS SUMMARY | ~2019-09-30 | XMS | Encounter Summary ---
Demographics + + + | Address | [address] | | | [place] [address] | + + + | Home Phone [...] Team Providers + +------+ + | Care Emission Specialist Name | Role | Phone | + +------+ + | Erika Ernst DO | PCP | | + +------+ + Reason for Referral Self-referral (Routine) +--------+ + + + + + | Status | Reason | Specialty | Diagnoses / | Referred By | Referred To | | | | | Procedures | Contact | Contact | +--------+ + + + + + | Closed | Specialty | | Diagnoses | Klever, | Elizabeth, | | | Services | | Asthma due | Erika Saltre DO | Tyrese Chapin MD | | | Required | | to | [address] | [address] | | | | | environmenta | [place], | [address] | | | | | l allergies | [place] [address] | [place], [place] | | | | | | Phone: | [address] | | | | | | [phone] | Phone: | | | | | | Fax: | [phone] | | | | | | [phone] | Fax: | | | | | | | [phone] | +--------+ + + + + + Self-referral (Routine) +--------+ + + + + + | Status | Reason | Specialty | Diagnoses / | Referred By | Referred To | | | | | Procedures | Contact | Contact | +--------+ + + + + + | Closed | Specialty | | Diagnoses | Klever, | Provider | | | Services | | Depression, | Erika Salter DO | Not, In | | | Required | | unspecified | [address] | System | | | | | depression | [place], | [place] | | | | | type | [place] [address] | Health and | | | | | | Phone: | Service | | | | | | [phone] | | | | | | | Fax: | | | | | | | [phone] | | +--------+ + + + + + Reason for Visit + + + | Reason | Comments | + + + | Follow-up | | + + + Encounter Details +--------+---------+ + + + | Date | Type | Department | Care Team | Description | +--------+---------+ + + + | 08/07/ | Office | [facility] [facility] | Erika Ernst, | Essential | | 2018 | Visit | [facility] | DO [address] | hypertension | | | | [facility] [address] | [place] [address] | (Primary Dx); Asthma | | | | [address] [place], | [phone] | due to | | | | [place] [address] | | environmental | | | | [phone] | | allergies; | | | | | | Depression, | | | | | | unspecified | | | | | | depression type; | | | | | | Family history of | | | | | | pancreatic cancer | +--------+---------+ + + + Social History [...] + + + | Blood Pressure | 138/90 | 08/07/2018 4:05 PM | | | | | PST | | + + + + + | Pulse | 81 | 08/07/2018 4:05 PM | | | | | PST | | + + + + + | Temperature | - | - | | + + + + + | Respiratory Rate | 16 | 08/07/2018 4:05 PM | | | | | PST | | + + + + + | Oxygen Saturation | 98% | 08/07/2018 4:05 PM | | | | | PST | | + + + + + | Inhaled Oxygen | - | - | | | Concentration | | | | + + + + + | Weight | 154.2 kg (340 lb) | 08/07/2018 4:05 PM | | | | | PST | | + + + + + | Height | 177.8 cm (5' 10") | 08/07/2018 4:05 PM | | | | | PST | | + + + + + | Body Mass Index | 48.78 | 08/07/2018 4:05 PM | | | | | PST | | + + + + + documented in this encounter Progress Notes Erika Ernst DO - 08/07/2018 4:00 PM PSTFormatting of this note might be different fro m the original. Subjective: Patient ID: Andrea Suh is a 28 y.o. female. Here to FU on HTN. BP controlled now with increase in norvasc. She also would like a referr al to [facility] for depression. Her asthma she feels is still not well controlled. Ne eds refill on singular. We will change to combivent inhaler and increase use of the Qvar. We will also do a pulmonology referral. She will FU with ENT for the allergies also. She is wo rried today about pancreatic cancer. Just found out that a aunt had pancreatic cancer. She h as no symptoms. Review of Systems Constitutional: Negative. HENT: Negative. Eyes: Negative. Respiratory: Positive for cough. Negative for chest tightness, shortness of breath and whee zing. Cardiovascular: Negative. Gastrointestinal: Negative. Genitourinary: Negative. Psychiatric/Behavioral: Negative for self-injury and suicidal ideas. Ongoing depression Social History Social History Marital status: Single Spouse name: N/A Number of children: N/A Years of education: N/A Occupational History Not on file. Social History Main Topics Smoking status: Never Smoker Smokeless tobacco: Never Used Alcohol use No Drug use: No Sexual activity: Yes control/ protection: Condom Other Topics Concern Not on file Social History Narrative No narrative on file Allergies Allergen Reactions Escitalopram Palpitations Latex Rash Hydrocodone Hives Oxycodone Uncoded Nonscreenable Allergen Other (See Comments) Other reaction(s): Proclivity to C-diff with certain antibiotics Adhesive & Tape Rash Outpatient Encounter Prescriptions as of 08/07/2018 Medication Sig Dispense Refill albuterol-ipratropium (COMBIVENT RESPIMAT) 100-20 mcg/puff inhaler Inhale 1 puff into t he lungs every 4 hours as needed for Shortness of Breath. 1 Inhaler 5 amLODIPine (NORVASC) 10 MG tablet Take 1 tablet by mouth Daily. 30 tablet 11 [DISCONTINUED] azithromycin (ZITHROMAX) 250 mg tablet Take 2 tablets by mouth on day 1, and 1 tablet by mouth every day 6 tablet 0 beclomethasone (QVAR) 80 mcg/puff inhaler 4 puffs BID 1 Inhaler 11 [DISCONTINUED] beclomethasone (QVAR) 80 mcg/puff inhaler Inhale 1 puff into the lungs 2 times daily. 1 Inhaler 11 busPIRone (BUSPAR) 5 mg tablet Take one 5mg tab in the AM and two 5mg tabs to equal 10 mg in the PM 90 tablet 5 montelukast (SINGULAIR) 10 mg tablet Take 1 tablet by mouth nightly. 30 tablet 11 [DISCONTINUED] montelukast (SINGULAIR) 10 mg tablet Take by mouth. naproxen (NAPROSYN) 500 mg tablet Take 500 mg by mouth 2 times daily (with breakfast & dinner). ondansetron (ZOFRAN) 4 mg tablet take 1 tablet by mouth three times a day if needed for nausea for UP TO 7 DAYS 0 promethazine (PHENERGAN) 25 mg tablet Take 1 tablet by mouth every 4 hours as needed. 2 0 tablet 0 pseudoePHEDrine (SUDAFED) 30 mg tablet Take 30 mg by mouth every 6 hours as needed for Congestion. [DISCONTINUED] QVAR REDIHALER 40 MCG/ACT inhaler inhale 1 puff by mouth twice a day 0 traMADol (ULTRAM) 50 mg tablet Take 50 mg by mouth. [DISCONTINUED] VENTOLIN HFA 108 (90 Base) MCG/ACT inhaler INSTILL 2 PUFFS BY MOUTH EVER Y 4 TO 6 HOURS NEEDED 18 g 11 No facility-administered encounter medications on file as of 08/07/2018. Objective: BP 138/90 | Pulse 81 | Resp 16 | Ht 1.778 m (5' 10") | Wt (!) 154.2 kg (340 lb) | LMP 07/27/2018 (LMP Unknown) | SpO2 98% | ? No | BMI 48.78 kg/m Physical Exam Constitutional: She is oriented to person, place, and time. She appears well-developed and well-nourished. No distress. HENT: Head: Normocephalic and atraumatic. Right Ear: External ear normal. Left Ear: External ear normal. Mouth/Throat: Oropharynx is clear and moist. Eyes: Pupils are equal, round, and reactive to light. Conjunctivae and EOM are normal. Righ t eye exhibits no discharge. Left eye exhibits no discharge. No scleral icterus. Neck: Normal range of motion. Neck supple. No tracheal deviation present. No thyromegaly pr esent. Cardiovascular: Normal rate, regular rhythm and normal heart sounds. Exam reveals no russo p and no friction rub. No murmur heard. Pulmonary/Chest: Effort normal and breath sounds normal. No respiratory distress. Abdominal: Soft. Bowel sounds are normal. She exhibits no distension. There is no tendernes s. Musculoskeletal: She exhibits no edema. Neurological: She is alert and oriented to person, place, and time. No cranial nerve defici t. Coordination normal. Skin: Skin is warm and dry. Psychiatric: She has a normal mood and affect. Her behavior is normal. Judgment and thought content normal. Assessment: 1. Essential hypertension Comprehensive Metabolic Panel 2. Asthma due to environmental allergies Pulmonology, External - AMB Referral- 3. Depression, unspecified depression type Behavioral Health, External - AMB Referral 4. Family history of pancreatic cancer Lipase Plan: Continue HTN control. Increase Qvar inhaler to 4 puffs BID. Change from ventolin to combive nt inhaler. Refill singular and referral to Pulmonary and she will FU with ENT for the traci rgy component. CMP and lipase labs. Referral to mental health provider. documented in this en [...] | | | | | [place] [address] | | | | | | [phone] | | | | | | | | +--------+ + + + + | 10/30/ | Office | Primary Care | Erika Ernst, | | | 2019 | Visit | | DO [address] | | | | | | [place] [address] | | | | | | [phone] | | | | | | | [...] [place] | | | | | | [address] | | | | | | [phone] | | | | | | | | +--------+ + + + + | 02/09/ | Office | Neurology | Dhara, | | | 2019 | Visit | | [address] | | [address] [place], | | | | | | [place] [address] | | | | | | [phone] | | | | | | | | +--------+ + + + + + + +--------+ + + | Name | Type | Priori | Associated Diagnoses | Order Schedule | | | | ty | | | + + +--------+ + + | Behavioral Health, | Outpatient | Routin | Depression, | Ordered: 08/07/2018 | | External - AMB | Referral | e | unspecified | | | Referral | | | depression type | | + + +--------+ + + | Pulmonology, | Outpatient | Routin | Asthma due to | Ordered: 08/07/2018 | | External - AMB | Referral | e | environmental | | | Referral- | | | allergies | | + + +--------+ + + documented as of this encounter Results Lipase (08/07/2018 4:28 PM PST) + +-------+ + + + | Component | Value | Ref Range | Performed | Pathologist | | | | | At | Signature | + +-------+ + + + | Lipase | 121 | 73 - 393 U/L | [place] | | | | | [facility] | | | | | [facility] | | + +-------+ + + + + + | Specimen | + + | Blood | + + + + + + + | Performing | Address | City/State/Zipcode | Phone Number | | Organization | | | | + + + + + | [facility] | [address] | [place] [address] | [phone] | | [facility] | | | | + + + + + Comprehensive Metabolic Panel (08/07/2018 4:28 PM PST) + + + + + + | Component | Value | Ref Range | Performed | Pathologist | | | | | At | Signature | + + + + + + | Na | 139 | 132 - 143 | [place] | | | | | mmol/L | [facility] | [facility] | | | | | | [facility] | | + + + + + + | K | 3.7 | 3.3 - 4.9 | [place] | | | | | mmol/L | [facility] | | | | | | [facility] | | + + + + + + | Cl | 104 | 95 - 108 mmol/L | [place] [facility] | | | [facility] | | | | | [facility] | | + + + + + + | CO2 | 25 | 23 - 34 mmol/L | [place] [facility] | [facility] | | [facility] | | + + + + + + | Anion Gap | 10 | 7 - 16 mmol/L | [facility] | | [facility] | | + + + + + + | Glucose | 97 | 70 - 110 mg/dL | [facility] | | | | | [facility] | | + + + + + + | BUN | 11 | 5 - 26 mg/dL | [place] [facility] | | | | [facility] | | | | | | [facility] | | + + + + + + | Creatinine | 0.79 | 0.60 - 1.30 | [place] | | | | | mg/dL | [facility] | [facility] | | | | | | [facility] | | + + + + + + | eGFR if not | >60Comment: GLOMERULAR | >=60 | [place] | | | | FILTRATION | mL/min/1.73m2 | [facility] | | | [facility] | RATE,ESTIMATED | | [facility] | | | | mL/min/1.04u5Lxlf than | | LABORATORY | | | | 60 Chronic kidney | | | | | | disease,if found over a | | | | | | 3-month period.Less than | | | | | | 15 Kidney failureFor | | | | | | | | | | | | Americans,multiply the | | | | | | calculated GFR by 1.21. | | | | | | | | | | + + + + + + | Calcium | 9.0 | 8.3 - 10.0 | [place] | | | | | mg/dL | [facility] | | | | | | [facility] | | + + + + + + | Albumin | 3.9 | 3.0 - 4.5 g/dL | [place] | | | | | | [facility] | | | | | | [facility] | | + + + + + + | Bilirubin | 0.7 | 0.0 - 1.2 mg/dL | [place] | | | Total | | | [facility] | | | | | | [facility] | | + + + + + + | Total | 7.8 | 6.6 - 8.5 g/dL | [place] | | | Protein | | | [facility] | | | | | | [facility] | | + + + + + + | AST | 17 | 0 - 38 U/L | [place] | | | | | | [facility] | | | | | | [facility] | | + + + + + + | ALT | 25 | 14 - 59 U/L | [place] [facility] | | | | [facility] | | | | | | [facility] | | + + + + + + | Alkaline | 92 | 46 - 116 U/L | [place] | | | Phosphatase | | | [facility] | | | | | | [facility] | | + + + + + + | Globulin | 3.9 | 2.4 - 4.5 g/dL | [place] | | | | | | [facility] | | | | | | [facility] | | + + + + + + | Albumin/Nancy | 1.0 | 0.8 - 2.0 | [place] | | | bulin Ratio | | | [facility] | | | | | | [facility] | | + + + + + + | BUN/Creatin | 13.9 | 7.0 - 24.0 | [place] | | | ine Ratio | | | [facility] | | | | | | [facility] | | + + + + + + + + | Specimen | + + | Blood | + + + + + + + | Performing | Address | City/State/Zipcode | Phone Number | | Organization | | | | + + + + + | [facility] | [address] | [place] [address] | [phone] | | [facility] | | | | + + + + + documented in this encounter Visit Diagnoses + + | Diagnosis | + + | Essential hypertension - Primary Unspecified essential hypertension | + + | Asthma due to environmental allergies | + + | Depression, unspecified depression type | + + | Family history of pancreatic cancer Family history of malignant neoplasm of | | gastrointestinal tract | + + documented in this encounter
--- OUTSIDE RECORDS SUMMARY | ~2019-09-30 | XMS | Encounter Summary ---
Demographics + + + | Address | [address] | | | [place] [address] | + + + | Home Phone | | + + + | Preferred Language | Unknown | + + + | Marital Status | Single | + + + | Baptism Affiliation | Unknown | + + + | Race | Unknown | + + + | Ethnic Group | Unknown | + + + Author + + + | Author | [facility] | | | and [place] | + + + | Organization | [facility] | | | [...] Team Providers + +------+ + | Care Gas Flow Regulator Name | Role | Phone | + +------+ + PCP | Unavailable | + +------+ + Encounter Details +--------+ + + + + | Date | Type | Department | Care Team | Description | +--------+ + + + + | 10/28/ | Hospital | [place] [facility] | Travis Malone FNP | | | 2015 | Encounter | [facility] | [address] | | | | | [address] [place] [address] | [place], [place] | | | | | [place], [place] | [address] | | | | | [address] | [phone] | | | | | [phone] | | | +--------+ + + + [...] | | | | | [place] [address] | | | | | | [phone] | | | | | | | | +--------+ + + + + | 10/30/ | Office | Primary Care | Erika Ernst, | | | 2019 | Visit | | DO [address] | | | | | | [place] [address] | | | | | | [phone] | | | | | | | [...] [place] | | | | | | [address] | | | | | | [phone] | | | | | | | | +--------+ + + + + | 02/09/ | Office | Neurology | Dhara, | | | 2020 | Visit | | [address] [place], | | | | | | [place] [address] | | | | | | [phone] | | | | | | | | +--------+ + + + + documented as of this encounter Visit Diagnoses Not on filedocumented in this encounter"
--- OUTSIDE RECORDS SUMMARY | ~2019-09-30 | XMS | Encounter Summary ---
Demographics + + + | Address | [address] | | | [place] [address] | + + + | Home Phone | | + + + | Preferred Language | Unknown | + + + | Marital Status | Single | + + + | Buddhist Affiliation | Unknown | + + + | Race | Unknown | + + + | Ethnic Group | Unknown | + + + Author + + + | Author | [facility] | | | and [place] | + + + | Organization | [facility] | | [...] Team Providers + +------+ + | Care Senior Billing Consultant Name | Role | Phone | + +------+ + | Erika Ernst DO | PCP | | + +------+ + Reason for Visit + + + | Reason | Comments | + + + | Results, Imaging | | + + + Encounter Details +--------+ + + + + | Date | Type | Department | Care Team | Description | +--------+ + + + + | 11/02/ | Telephone | [place] [facility] | Veronica Huerta, | Results, Imaging | | 2019 | | [facility] | THREADING MACHINE OPERATOR | | | | | MEDICAL CL[facility] [address] | | | | | | [address] [facility] [place], | | | | | | [place] [address] | | | | | | [phone] | | | +--------+ + + + [...] 2019 | Visit | | DO [address] | | | | | | [place] [address] | | | | | | [phone] | | | | | | | | +--------+ + + + + | 10/30/ | Office | Primary Care | Erika Ernst, | | | 2019 | Visit | | DO [address] | | | | | | [place] [address] | | | | | | [phone] | | | | | | | [...] [place] | | | | | | [address] | | | | | | [phone] | | | | | | | | +--------+ + + + + | 02/09/ | Office | Neurology | Dhara, | | | 2019 | Visit | | [address] | | | [address] [place], | | | | | | [place] [address] | | | | | | [phone] | | | | | | | | +--------+ + + + + documented as of this encounter Visit Diagnoses Not on filedocumented in this encounter"
--- OUTSIDE RECORDS SUMMARY | ~2019-09-30 | XMS | Encounter Summary ---
Demographics + + + | Address | [address] | | | [place] [address] | + + + | Home Phone | | + + + | Preferred Language | Unknown | + + + | Marital Status | Single | + + + | Mandaeism Affiliation | Unknown | + + + | Race | Unknown | + + + | Ethnic Group | Unknown | + + + Author + + + | Author | [facility] | | | and [place] | + + + | Organization | [facility] | | [...] Team Providers + +------+ + | Care Farm Mortgage Agent Name | Role | Phone | [...] | +--------+ + + + + | 06/19/ | Telephone | [place] [facility] | Erika Ernst, | Medication Refill | | 2019 | | [facility] | [address] | | | | | MEDICAL CLIN[facility] [address] | [facility] [place] [address] | | | | | [address] [place], | [phone] | | | | | [place] [address] | | | | | | [phone] | | | +--------+ + + + [...] | | | | | [place] [address] | | | | | | [phone] | | | | | | | | +--------+ + + + + | 10/30/ | Office | Primary Care | Erika Ernst, | | | 2019 | Visit | | DO [address] | | | | | | [place] [address] | | | | | | [phone] | | | | | | | [...] | | | | | | [place] | | | | | | [address] | | | | | | [phone] | | | | | | | | +--------+ + + + + | 02/09/ | Office | Neurology | Dhara, | | | 2020 | Visit | | [address] | | | | | | [address] [place], | | | | | | [place] [address] | | | | | | [phone] | | | | | | | | +--------+ + + + + documented as of this encounter Visit Diagnoses Not on filedocumented in this encounter"
--- OUTSIDE RECORDS SUMMARY | ~2019-09-30 | XMS | Encounter Summary ---
Demographics + + + | Address | [address] | | | [place] [address] | + + + | Home Phone | | + + + | Preferred Language | Unknown | + + + | Marital Status | Single | + + + | Buddhist Affiliation | Unknown | + + + | Race | Unknown | + + + | Ethnic Group | Unknown | + + + Author + + + | Author | [facility] | | | and [place] | + + + | Organization | [facility] | | | [...] Team Providers + +------+ + | Care Technology Director Name | Role | Phone | + +------+ + PCP | Unavailable | + +------+ + Encounter Details +--------+ + + + + | Date | Type | Department | Care Team | Description | +--------+ + + + + | [facility] Denise Mcgregor | | | 2017 | Encounter | [facility] | G, SENIOR DB2 SYSTEMS PROGRAMMER [address] | | | | | MEDICAL CLINIC [address] | [facility] [place] | | | | [address] [facility], | [address] | | | | | [place] [address] | [phone] | | | | | [phone] | | | +--------+ + + + [...] | | | | | [place] [address] | | | | | | [phone] | | | | | | | | +--------+ + + + + | 10/30/ | Office | Primary Care | Erika Ernst, | | | 2019 | Visit | | DO [address] | | | | | | [place] [address] | | | | | | [phone] | | | | | | | [...] [place] | | | | | | [address] | | | | | | [phone] | | | | | | | | +--------+ + + + + | 02/09/ | Office | Neurology | Dhara, | | | 2019 | Visit | | [address] [place], | | | | | | [place] [address] | | | | | | [phone] | | | | | | | | +--------+ + + + + documented as of this encounter Visit Diagnoses Not on filedocumented in this encounter"
--- OUTSIDE RECORDS SUMMARY | ~2019-09-30 | XMS | Encounter Summary ---
Demographics + + + | Address | [address] | | | [place] [address] | + + + | Home Phone [...] Team Providers + +------+ + | Care Knockdown Man Name | Role | Phone | + +------+ + PCP | Unavailable | + +------+ + Encounter Details +--------+ + + + + | Date | Type | Department | Care Team | Description | +--------+ + + + + | 06/22/ | [facility] | [facility] [facility] | Amaya Varner NP | | | 2016 | Encounter | [facility] | [address] | | | | | MEDICAL CLIN[facility] [address] | [place], [place] | | | | | [address] [place], | [address] | | | | | [place] [address] | [phone] | | | | | [phone] | | | +--------+ + + + [...] by Nasal route. | | 0 | 05/12/20 | | | (FLONASE) 50 | | [...] | | | | | [place] [address] | | | | | | [phone] | | | | | | | | +--------+ + + + + | 10/30/ | Office | Primary Care | Erika Ernst, | | | 2019 | Visit | | DO [address] | | | | | | [place] [address] | | | | | | [phone] | | | | | | | | +--------+ + + + + | 11/07/ | Appointment | Nutrition | Janel Webster | | | 2019 | | | [address] | | +--------+ + + + + | 11/28/ | Office | Otolaryngology | Anthony Alvarado MD | | | 2019 | Visit | | [address] | | | | | | [place], [place] | | | | | | [address] | | | | | | [phone] | | | | | | | | +--------+ + + + + | 02/09/ | Office | Neurology | Dhara, | | | 2019 | Visit | | [address] | | | | [address] [place], | | | | | | [place] [address] | | | | | | [phone] | | | | | | | | +--------+ + + + + documented as of this encounter Visit Diagnoses Not on filedocumented in this encounter"
--- OUTSIDE RECORDS SUMMARY | ~2019-09-30 | XMS | Encounter Summary ---
Demographics + + + | Address | [address] | | | [place] [address] | + + + | Home Phone | | + + + | Preferred Language | Unknown | + + + | Marital Status | Single | + + + | Moravian Affiliation | Unknown | + + + [...] Team Providers + +------+ + | Care Replenisher Name | Role | Phone | + +------+ + PCP | Unavailable | + +------+ + Encounter Details +--------+ + + + + | Date | Type | Department | Care Team | Description | +--------+ + + + + | 05/22/ | [facility] | Spenser Roberts NP | | | 2015 | Encounter | [facility] | [address], | | | | | MEDICAL CLIN[facility] [address] | [place] [address] | | | | | [address] [facility], | [phone] | | | | | [place] [address] | | | | | | [phone] | | | +--------+ + + + [...] | 2019 | Visit | | DO | | | | | | [place] [address] | | | | | | [phone] | | | | | | | | +--------+ + + + + | 10/30/ | Office | Primary Care | Erika Ernst, | | | 2019 | Visit | | DO [address] | | | | | | [place] [address] | | | | | | [phone] | | | | | | | [...] [place] | | | | | | [address] | | | | | | [phone] | | | | | | | | +--------+ + + + + | 02/09/ | Office | Neurology | Dhara, | | | 2020 | Visit | | [address] | | | [address] [place], | | | | | | [place] [address] | | | | | | [phone] | | | | | | | | +--------+ + + + + documented as of this encounter Visit Diagnoses Not on filedocumented in this encounter"
--- OUTSIDE RECORDS SUMMARY | ~2019-09-30 | XMS | Encounter Summary ---
Demographics + + + | Address | [address] | | | [place] [address] | + + + | Home Phone | | + + + | Preferred Language | Unknown | + + + | Marital Status | Single | + + + | Mormon Affiliation | Unknown | + + + | Race | Unknown | + + + | Ethnic Group | Unknown | + + + Author + + + | Author | [facility] | | | and [place] | + + + | Organization | [facility] | | [...] Team Providers + +------+ + | Care Road Oiling Truck Driver Name | Role | Phone | + +------+ + PCP | Unavailable | + +------+ + Encounter Details +--------+ + + + + | Date | Type | Department | Care Team | Description | +--------+ + + + + | 12/17/ | Hospital | [facility] [facility] | Eliza Maravilla | | | 2016 | Encounter | [facility] | MD [address] | | | | | [address] [place] | [address] [facility], | | | | | [place], [place] | [place] [address] | | | | | [address] | [phone] | | | | | [phone] | | | +--------+ + + + [...] | | | | | [place] [address] | | | | | | [phone] | | | | | | | | +--------+ + + + + | 10/30/ | Office | Primary Care | Erika Ernst, | | | 2019 | Visit | | DO [address] | | | | | | [place] [address] | | | | | | [phone] | | | | | | | [...] [place] | | | | | | [address] | | | | | | [phone] | | | | | | | | +--------+ + + + + | 02/09/ | Office | Neurology | Dhara, | | | 2019 | Visit | | [place], [facility] [address] | | | | | | [facility] [facility], | | | | | | [place] [address] | | | | | | [phone] | | | | | | | | +--------+ + + + + documented as of this encounter Procedures + +--------+ + + + | Procedure Name | Priori | Date/Time | Associated Diagnosis | Comments | | | ty | | | | + +--------+ + + + | STREP B SCREEN | Routin | 12/18/2015 | | Results for this | | | e | 2:36 PM | | procedure are in the | | | | PDT | | results section. | + +--------+ + + + documented in this encounter Results Strep B screen (12/18/2015 2:36 PM PDT) + + + + + + | Component | Value | Ref Range | Performed | Pathologist | | | | | At | Signature | + + + + + + | STREP GROUP | NEGATIVE | NEGATIVE | EXTERNAL | | | A ANTIGEN | | | LAB | | + + + + + + | Internal QC | POSITIVE | POSITIVE | EXTERNAL | | | | | | LAB | | + + + + + + | Reflex | YES | | EXTERNAL | | | | | [...]
--- OUTSIDE RECORDS SUMMARY | ~2019-09-30 | XMS | Encounter Summary ---
Demographics + + + | Address | [address] | | | [place] [address] | + + + | Home Phone [...] Team Providers + +------+ + | Care Pre Billing Specialist Name | Role | Phone | + +------+ + | Erika Ernst DO | PCP | | + +------+ + Reason for Visit + + + | Reason | Comments | + + + | Sinusitis | getting worse | + + + Encounter Details +--------+---------+ + + + | Date | Type | Department | Care Team | Description | +--------+---------+ + + + | 06/11/ | Office | [facility] [facility] | Erika Ernst, | Acute sore throat | | 2019 | Visit | [facility] | DO [address] | (Primary Dx); | | | | [facility] | [facility] [address] | Fatigue, unspecified | | | | [address] [place], | [phone] | type; Acute | | | | [place] [address] | | pharyngitis, | | | | [phone] | | unspecified etiology | +--------+---------+ + + + Social History [...] + + + | Blood Pressure | 134/88 | 06/11/2019 4:31 PM | | | | | PDT | | + + + + + | Pulse | 105 | 06/11/2019 4:31 PM | | | | | PDT | | + + + + + | Temperature | - | - | | + + + + + | Respiratory Rate | 18 | 06/11/2019 4:31 PM | | | | | PDT | | + + + + + | Oxygen Saturation | 98% | 06/11/2019 4:31 PM | | | | | PDT | | + + + + + | Inhaled Oxygen | - | - | | | Concentration | | | | + + + + + | Weight | 170.6 kg (376 lb) | 06/11/2019 4:31 PM | | | | | PDT | | + + + + + | Height | 177.8 cm (5' 10") | 06/11/2019 4:31 PM | | | | | PDT | | + + + + + | Body Mass Index | 53.95 | 06/11/2019 4:31 PM | | | | | PDT | | + + + + + documented in this encounter Erika Kumar DO - 06/11/2019 4:30 PM PDTFormatting of this note might be different fro m the original. Subjective: Patient ID: Andrea Suh is a 29 y.o. female. Was treated for recent sinus infection with augmentin and states the sinus is better but th e throat is worse. States mostly sore on the left side of the throat. Cough with some produ ctive sputum. Fatigue. Afebrile. No SOB and pox is 98%. Has appointment with ENT Dr Wheeler for some FU but not soon. Is taking some decongestant OTC. Let her know this may be viral a nd needs to run its course. No ill contacts. Non-smoker Review of Systems As above Objective: BP 134/88 | Pulse 105 | Resp 18 | Ht 1.778 m (5' 10") | Wt (!) 170.6 kg (376 lb) | LMP 05/18/2019 | SpO2 98% | BMI 53.95 kg/m Physical Exam Constitutional: She is oriented to person, place, and time. She appears well-developed and well-nourished. No distress. HENT: Head: Normocephalic and atraumatic. Mouth/Throat: Oropharynx is clear and moist. Bilateral TM's clear. Sl red posterior pharynx. No exudate. Eyes: Pupils are equal, round, and reactive to light. Conjunctivae and EOM are normal. Neck: Normal range of motion. Neck supple. Cardiovascular: Normal rate, regular rhythm and normal heart sounds. No murmur heard. Pulmonary/Chest: Effort normal and breath sounds normal. No respiratory distress. Lymphadenopathy: She has no cervical adenopathy. Neurological: She is alert and oriented to person, place, and time. Skin: Skin is warm and dry. Capillary refill takes less than 2 seconds. Psychiatric: She has a normal mood and affect. Her behavior is normal. Assessment: 1. Acute sore throat Streptococcus Group A, Rapid Screen Mononucleosis Screen 2. Fatigue, unspecified type Streptococcus Group A, Rapid Screen Mononucleosis Screen 3. Acute pharyngitis, unspecified etiology Plan: Strep screen, mono spot. Zpak. Rest, increase fluids. Vitamin C and zinc OTC. documented in this en counter Plan of Treatment +--------+ + + + + | Date | Type | Specialty | Care Team | Description | +--------+ + + + + | 10/01/ | Office | Primary Care | Erika Ernst, | | | 2018 | Visit | | DO [address] | | | | | | [place] [address] | | | | | | [phone] | | | | | | | | +--------+ + + + + | 10/30/ | Office | Primary Care | Erika Ernst, | | | 2019 | Visit | | DO [address] | | | | | | [place] [address] | | | | | | [phone] | | | | | | | [...] [place] | | | | | | [address] | | | | | | [phone] | | | | | | | | +--------+ + + + + | 02/09/ | Office | Neurology | Dhara, | | | 2019 | Visit | | [address]WA[address] Ross [address] | | | | | [address] [place], | | | | | | [place] [address] | | | | | | [phone] | | | | | | | | +--------+ + + + + documented as of this encounter Results Mononucleosis Screen (06/11/2019 4:56 PM PDT) + + + + + + | Component | Value | Ref Range | Performed | Pathologist | | | | | At | Signature | + + + + + + | [place] Screen | Negative | Negative | [place] | | | | | [...] + + + + + | [facility] [facility] | [address] | [place] [address] | [phone] | | HOSPITAL [facility]ORY | | | | + + + + + Streptococcus Group A, Rapid Screen (06/11/2019 4:56 PM PDT) + + + + + + | Component | Value | Ref Range | Performed | Pathologist | | | | | At | Signature | + + + + + + | Rapid Strep | Negative | Negative | [place] | | | A Screen | | | [facility] | [facility] | | | | [facility] | | | | | [facility] | | + + + + + + + + | Specimen | + + | Tissue - Specimen | | from throat | | (specimen) | + + + + + + + | Performing | Address | City/State/Zipcode | Phone Number | | Organization | | | | + + + + + | [place] [facility] | [address] [facility] | [place] [address] | [phone] | | [facility] | | | | | [facility] | | | | + + + + + documented in this encounter Visit Diagnoses + + | Diagnosis | + + | Acute sore throat - Primary | + + | Fatigue, unspecified type | + + | Acute pharyngitis, unspecified etiology | + + documented in this encounter
--- OUTSIDE RECORDS SUMMARY | ~2019-09-30 | XMS | Encounter Summary ---
Demographics + + + | Address | [address] | | | [place] [address] | + + + | Home Phone | | + + + | Preferred Language | Unknown | + + + | Marital Status | Single | + + + | Protestant Affiliation | Unknown | + + + | Race | Unknown | + + + | Ethnic Group | Unknown | + + + Author + + + | Author | [facility] | | | and [place] | + + + | Organization | [facility] | | | and [...] Team Providers + +------+ + | Care Word Processor Name | Role | Phone | + +------+ + | Erika Ernst DO | PCP | | + +------+ + Reason for Visit +--------+ + | Reason | Comments | +--------+ + | Other | In patient visit | +--------+ + Encounter Details +--------+ + + + + | Date | Type | Department | Care Team | Description | +--------+ + + + + | 10/27/ | Telephone | [facility] [facility] | Erika Ernst, | Other (In patient | | 2019 | | [facility] | DO [address] | visit) | | | | [facility] | [place] [address] | | | | [address] [place], | [phone] | | | | | [place] [address] | | | | | | [phone] | | | +--------+ + + + [...] | | | | | [place] [address] | | | | | | [phone] | | | | | | | | +--------+ + + + + | 10/30/ | Office | Primary Care | Erika Ernst, | | | 2019 | Visit | | DO [address] | | | | | | [place] [address] | | | | | | [phone] | | | | | | | [...] [place] | | | | | | [address] | | | | | | [phone] | | | | | | | | +--------+ + + + + | 02/09/ | Office | Neurology | Dhara, | | | 2019 | Visit | | [address]WA[address] | | | | | [address] [place], | | | | | | [place] [address] | | | | | | [phone] | | | | | | | | +--------+ + + + + documented as of this encounter Visit Diagnoses Not on filedocumented in this encounter"
--- OUTSIDE RECORDS SUMMARY | ~2019-09-30 | XMS | Encounter Summary ---
Demographics + + + | Address | [address] | | | [place] [address] | + + + | Home Phone | | + + + | Preferred Language | Unknown | + + + | Marital Status | Single | + + + | Advent Affiliation | Unknown | + + + | Race | Unknown | + + + | Ethnic Group | Unknown | + + + Author + + + | Author | [facility] | | | and [place] | + + + | Organization | [facility] | | [...] Team Providers + +------+ + | Care Neck Pinner Name | Role | Phone | + +------+ + PCP | Unavailable | + +------+ + Encounter Details +--------+ + + + + | Date | Type | Department | Care Team | Description | +--------+ + + + + | 06/11/ | Hospital | [place] [facility] | Tyrese Kee | | | 2013 | Encounter | [facility]PITAL [facility] | MD Peter [address] | | | | | [address] [place] | | | | | DR [place], [place] | [place] [address] | | | | | [address] | [phone] | | | | | [phone] | | | +--------+ + + + [...] | | | | | [place] [address] | | | | | | [phone] | | | | | | | | +--------+ + + + + | 10/30/ | Office | Primary Care | Erika Ernst, | | | 2019 | Visit | | DO [address] | | | | | | [place] [address] | | | | | | [phone] | | | | | | | [...] [place] | | | | | | [address] | | | | | | [phone] | | | | | | | | +--------+ + + + + | 02/09/ | Office | Neurology | Dhara, | | | 2020 | Visit | | [address] | | | | [address] [place], | | | | | | [place] [address] | | | | | | [phone] | | | | | | | | +--------+ + + + + documented as of this encounter Visit Diagnoses Not on filedocumented in this encounter"
--- OUTSIDE RECORDS SUMMARY | ~2019-09-30 | XMS | Encounter Summary ---
Demographics + + + | Address | [address] | | | [place] [address] | + + + | Home Phone | | + + + | Preferred Language | Unknown | + + + | Marital Status | Single | + + + | Anglican Affiliation | Unknown | + + + [...] Team Providers + +------+ + | Care Pressure Steamer Tender Name | Role | Phone | + +------+ + PCP | Unavailable | + +------+ + Encounter Details +--------+ + + + + | Date | Type | Department | Care Team | Description | +--------+ + + + + | 08/03/ | Hospital | [place] [facility] | Caro Zendejas | | | 2015 | Encounter | HOSPITAL [facility] | MCKENZIE Collazo [address] | | | | | [address] | [facility] [place] [place] | | | | | [place], [place] | [address] | | | | | [address] | [phone] | | | | | [phone] | | | +--------+ + + + [...] | | | | | [place] [address] | | | | | | [phone] | | | | | | | | +--------+ + + + + | 10/30/ | Office | Primary Care | Erika Ernst, | | | 2019 | Visit | | DO [address] | | | | | | [place] [address] | | | | | | [phone] | | | | | | | [...] [place] | | | | | | [address] | | | | | | [phone] | | | | | | | | +--------+ + + + + | 02/09/ | Office | Neurology | Dhara, | | | 2020 | Visit | | [address] | | | | | [address] [place], | | | | | | [place] [address] | | | | | | [phone] | | | | | | | | +--------+ + + + + documented as of this encounter Visit Diagnoses Not on filedocumented in this encounter"
--- OUTSIDE RECORDS SUMMARY | ~2019-09-30 | XMS | Encounter Summary ---
Demographics + + + | Address | [address] | | | [place] [address] | + + + | Home Phone | | + + + | Preferred Language | Unknown | + + + | Marital Status | Single | + + + | Synagogue Affiliation | Unknown | + + + | Race | Unknown | + + + | Ethnic Group | Unknown | + + + Author + + + | Author | [facility] | | | and [place] | + + + | Organization | [facility] | | [...] Team Providers + +------+ + | Care Yacht Builder Name | Role | Phone | + +------+ + | Erika Ernst DO | PCP | | + +------+ + Reason for Visit +--------+ + | Reason | Comments | +--------+ + | Other | rehab therapy follow up | +--------+ + Encounter Details +--------+ + + + + | Date | Type | Department | Care Team | Description | +--------+ + + + + | 02/28/ | Telephone | [facility] [facility] | Michela Azevedo, | Other (rehab therapy | | 2019 | | HOSPITAL THERAPY OT | OT | follow up) | | | | [address] | | | | | | [place] | | | | | | [address] | | | | | | [phone] | | | +--------+ + + + [...] | | | | | [place] [address] | | | | | | [phone] | | | | | | | | +--------+ + + + + | 10/30/ | Office | Primary Care | Erika Ernst, | | | 2019 | Visit | | DO [address] | | | | | | [place] [address] | | | | | | [phone] | | | | | | | [...] [place] | | | | | | [address] | | | | | | [phone] | | | | | | | | +--------+ + + + + | 02/09/ | Office | Neurology | Dhara, | | | 2020 | Visit | | [address] | [address] [place], | | | | | | [place] [address] | | | | | | [phone] | | | | | | | | +--------+ + + + + documented as of this encounter Visit Diagnoses Not on filedocumented in this encounter"
--- OUTSIDE RECORDS SUMMARY | ~2019-09-30 | XMS | Encounter Summary ---
Demographics + + + | Address | [address] | | | [place] [address] | + + + | Home Phone | | + + + | Preferred Language | Unknown | + + + | Marital Status | Single | + + + | Baptist Affiliation | Unknown | + + + [...] + +------+ + | Care Director Of Home Health Services Name | Role | Phone | [...] | | | [facility] [address] | [place] [address] | Fatigue, unspecified | | | | [address] [place], | [phone] | type; Acute | | | | [place] [address] | | pharyngitis, | | | | [phone] | | unspecified etiology | +--------+---------+ + [...] | | | | | [place] [address] | | | | | | [phone] | | | | | | | | +--------+ + + + + | 10/30/ | Office | Primary Care | Erika Ernst, | | | 2019 | Visit | | DO [address] | | | | | | [place] [address] | | | | | | [phone] | | | | | | | [...] [place] | | | | | | [address] | | | | | | [phone] | | | | | | | | +--------+ + + + + | 02/09/ | Office | Neurology | Dhara, | | | 2019 | Visit | | [address] | | | | | [address] [place], | | | | | | [place] [address] | | | | | | [phone] | | | | | | | | +--------+ + + + + documented as of this encounter Results Mononucleosis Screen (06/11/2019 4:56 PM PDT) + + + + + + | Component | Value | Ref Range | Performed | Pathologist | | | | | At | Signature | + + + + + + | [place] Screen | Negative | Negative | [place] [...] + + | [facility] [facility] | [address] | [place] [address] | [phone] | | HOSPITAL [facility] | | | [...] + + | [place] [facility] | [address] [facility] | [place] [address] | [phone] | | [facility] | | | | | [facility] | | | | + + + + + documented in this encounter Visit Diagnoses + + | Diagnosis | + + | Acute sore throat - Primary | + + | Fatigue, unspecified type | + + | Acute pharyngitis, unspecified etiology | + + documented in this encounter
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
--- OUTSIDE RECORDS SUMMARY | ~2019-09-30 | XMS | Encounter Summary ---
Demographics + + + | Address | [address] | | | [place] [address] | + + + | Home Phone [...] Team Providers + +------+ + | Care Oil Field Roustabout Name | Role | Phone | + [...] Closed | | Radiology | Diagnoses | Klever | Verónica Wgr Xray | | | | | Sprain of | Erika A, DO | [address] | | | | | calcaneofibu | [address] | [address] | | | | | lar ligament | [place], | [place], [place] | | | | | of left | [place] [address] | [address] | | | | | ankle, | Phone: | Phone: | | | | | subsequent | [phone] | [phone] | | | | | encounter | Fax: | Fax: | | | | | Procedures | [phone] | [phone] | | | | | MRI Ankle | | | | | | | Left wo | | | | | | | Contrast [...] Closed | | Radiology | Diagnoses | Klever, | Cc Wgr Xray | | | | | Sprain of | Erika A, DO | [address] | | | | | calcaneofibu | [address] | [address] | | | | | lar ligament | [place], | [place], [place] | | | | | of left | [place] [address] | [address] | | | | | ankle, | Phone: | Phone: | | | | | subsequent | [phone] | [phone] | | | | | encounter | Fax: | Fax: | | | | | Procedures | [phone] | [phone] | | | | | MRI Ankle | | | | | | | Left wo | | | | | | | Contrast | | | +--------+--------+ + + + + Encounter Details +--------+ + + + + | Date | Type | Department | Care Team | Description | +--------+ + + + + | 11/01/ | Hospital | [place] [facility] | Erika Ernst, | Sprain of | | 2018 | Encounter | Hospital MRI [address] | DO [address] | calcaneofibular | | | | [address] | [place] [address] | ligament of left | | | | [place], [place] | [phone] | ankle, subsequent | | | | [address] | | encounter | | | | [phone] | | | +--------+ + + + [...] +---------+ + + | busPIRone (BUSPAR) | BID | 60 | 3 | 10/31/19 | | | 15 mg | | tablet | | 19 | 9 | | tabletIndications: | | | | | | | Depression, | | | | | | | unspecified | | | | | | | depression type | | | | | | + + + +---------+ + + | Elastic Bandages & | 1 Units by Does not | 1 each | 0 | 10/27/19 | | | Supports (ANKLE | apply route Daily. | | | 19 | 9 | | BRACE [id number]) | | | | | | | MISCIndications: | | | | | | | Sprain of right | | | | | | | ankle, unspecified | | | | | | | ligament, initial | | | | | | | encounter | | | | | | + + + +---------+ + + | Elastic Bandages & | 1 Units by Does not | 1 each | 0 | 10/27/19 | | | Supports (KNEE | apply route Daily. | | | 19 | 9 | | BRACE/HINGED BARS | | | | | | | 3XL) | | | | | | | MISCIndications: | | | | | | | Contusion of right | | | | | | | knee, initial | | | | | | | encounter | | | | | | + [...] + + + +---------+ + + | norethindrone | | | 0 | 10/29/19 | | | (MICRONOR) 0.35 MG | | | | 19 | 9 | | tablet | | | | | | + + + +---------+ + + | HyunVAR REDBEAUALER 80 | | | 0 | 10/29/19 | | | MCG/ACT inhaler | | [...] | | | | | [place] [address] | | | | | | [phone] | | | | | | | | +--------+ + + + + | 10/30/ | Office | Primary Care | Erika Ernst, | | | 2019 | Visit | | DO [address] | | | | | | [place] [address] | | | | | | [phone] | | | | | | | [...] | | | | | [place], [place] | | | | | | [address] | | | | | | [phone] | | | | | | | | +--------+ + + + + | 02/09/ | Office | Neurology | Dhara, | | | 2019 | Visit | | DWAINE Ross [address] [place], | | | | | | [place] [address] | | | | | | [phone] | | | | | | | | +--------+ + + + + documented as of this encounter Procedures + +--------+ + + + | Procedure Name | Priori | Date/Time | Associated Diagnosis | Comments | | | ty | | | | + +--------+ + + + | MRI ANKLE LEFT WO | Routin | 11/01/2018 | Sprain of | Results for this | | CONTRAST | e | 3:14 PM | calcaneofibular | procedure are in the | | | | PST | ligament of left | results section. | | | | | ankle, subsequent | | | | | | encounter | | + +--------+ + + + documented in this encounter Results MRI Ankle Left wo Contrast (11/01/2018 3:14 PM PST) + + | Specimen | + + | | + + + + + | Impressions | Performed At | + + + | IMPRESSION: 1. No acute bone finding identified. 2. Fluid is | [facility] | | present at the anterolateral ankle region. This finding may relate | | | to the subcutaneous edema noted at the lower leg. Potentially soft | | | tissue/ligament injury in region could result in the appearance. 3. | | | At the dorsal aspect of the 1st metatarsal a vitamin-E capsules | | | placed. No distinct abnormal bone signal is seen in this region. | | | The 1st metatarsal is incompletely imaged. 4. The deltoid ligament | | | medially is inhomogeneous in signal compatible with age-indeterminate | | | sprain. Dictated by: Chris Bedolla | | + + + + + + | Narrative | Performed At | + + + | EXAMINATION: MRI ankle without contrast HISTORY: continued | [facility] | | left foot and ankle pain and weakness after work comp injury 4 months | | | ago COMPARISON STUDY: Ankle 06/19/2018. TECHNIQUE: | | | Multiplanar multisequence MRI of the ankle is performed without | | | contrast. FINDINGS: Lateral ankle complex: The anterior | | | talofibular ligament is intact. Edema intensity is present adjacent | | | to the ligament.. The posterior talofibular ligament is intact. The | | | calcaneofibular ligament is intact. The peroneus longus and brevis | | | tendons are intact. Medial ankle complex: The deltoid ligament is | | | somewhat inhomogeneous in signal with mild edema intensity present in | | | the region. The medial ankle tendons are intact. Ankle | | | syndesmosis: The tibiofibular recess demonstrates no abnormal fluid | | | collection.. Spring ligament complex: The medioplantar oblique | | | calcaneonavicular ligament is intact. The inferoplantar longitudinal | | | calcaneonavicular ligament is intact. The superomedial | | | calcaneonavicular ligament is intact. The sinus tarsi signal is | | | normal. Bone signal normal A vitamin E capsule is placed at the | | | medial foot approximately at the level of the 1st metatarsal dorsal | | | surface. This region is incompletely imaged on the current study. | | | The visualized portion of the 1st metatarsal demonstrates normal | | | bone signal.. Subcutaneous edema partially imaged at the lower | | | leg. | | + + + + + | Procedure Note | + + | Yoni Grullon Results In - 11/02/2018 12:47 PM PST EXAMINATION:MRI ankle without | | contrastHISTORY:continued left foot and ankle pain and weakness after work comp injury 4 | | months agoCOMPARISON STUDY:Ankle 06/19/2018.TECHNIQUE:Multiplanar multisequence MRI of | | the ankle is performed without contrast.FINDINGS:Lateral ankle complex:The anterior | | talofibular ligament is intact. Edema intensity is present adjacent to the | | ligament..The posterior talofibular ligament is intact.The calcaneofibular ligament is | | intact.The peroneus longus and brevis tendons are intact.Medial ankle complex:The | | deltoid ligament is somewhat inhomogeneous in signal with mild edema intensity present | | in the region.The medial ankle tendons are intact.Ankle syndesmosis:The tibiofibular | | recess demonstrates no abnormal fluid collection..Spring ligament complex:The | | medioplantar oblique calcaneonavicular ligament is intact.The inferoplantar longitudinal | | calcaneonavicular ligament is intact.The superomedial calcaneonavicular ligament is | | intact.The sinus tarsi signal is normal.Bone signal normalA vitamin E capsule is placed | | at the medial foot approximately at the level of the 1st metatarsal dorsal surface. | | This region is incompletely imaged on the current study. The visualized portion of the | | 1st metatarsal demonstrates normal bone signal..Subcutaneous edema partially imaged at | | the lower leg.IMPRESSION: IMPRESSION:1. No acute bone finding identified.2. Fluid is | | present at the anterolateral ankle region. This finding may relate to the subcutaneous | | edema noted at the lower leg. Potentially soft tissue/ligament injury in region could | | result in the appearance.3. At the dorsal aspect of the 1st metatarsal a vitamin-E | | capsules placed. No distinct abnormal bone signal is seen in this region. The 1st | | metatarsal is incompletely imaged.4. The deltoid ligament medially is inhomogeneous in | | signal compatible with age-indeterminate sprain.Dictated by: Chris BedollaElectronically | | Signed by: Chris Bedolla on 11/02/2018 12:44 PM | |Ankle syndesmosis: | |The tibiofibular recess demonstrates no abnormal fluid collection.. | | | |Spring ligament complex: | |The medioplantar oblique calcaneonavicular ligament is intact. | |The inferoplantar longitudinal calcaneonavicular ligament is intact. | |The superomedial calcaneonavicular ligament is intact. | | | |The sinus tarsi signal is normal. | |Bone signal normal | | | |A vitamin E capsule is placed at the medial foot approximately at the level of the 1st meta tarsal dorsal surface. This region is incompletely imaged on the current study. The visual ized portion of the 1st metatarsal demonstrates normal bone signal.. | | | |Subcutaneous edema partially imaged at the lower leg. | | | |IMPRESSION: | |IMPRESSION: | |1. No acute bone finding identified. | |2. Fluid is present at the anterolateral ankle region. This finding may relate to the subc utaneous edema noted at the lower leg. Potentially soft tissue/ligament injury in region co uld result in the appearance. | |3. At the dorsal aspect of the 1st metatarsal a vitamin-E capsules placed. No distinct abn ormal bone signal is seen in this region. The 1st metatarsal is incompletely imaged. | |4. The deltoid ligament medially is inhomogeneous in signal compatible with age-indetermina te sprain. | | | |Dictated by: Chris Bedolla [...] Diagnosis | + + | Sprain of calcaneofibular ligament of left ankle, subsequent encounter | + + documented in this encounter"
--- OUTSIDE RECORDS SUMMARY | ~2019-09-30 | XMS | Encounter Summary ---
Demographics + + + | Address | [address] | | | [place] [address] | + + + | Home Phone | | + + + | Preferred Language | Unknown | + + + | Marital Status | Single | + + + | Muslim Affiliation | Unknown | + + + | Race | Unknown | + + + | Ethnic Group | Unknown | + + + Author + + + | Author | [facility] | | | and [place] | + + + | Organization | [facility] | | [...] Team Providers + +------+ + | Care Able Seaman Name | Role | Phone | + +------+ + | Erika Ernst DO | PCP | | + +------+ + Reason for Visit + + + | Reason | Comments | + + + | Follow-up | anxiety | + + + Encounter Details +--------+---------+ + + + | Date | Type | Department | Care Team | Description | +--------+---------+ + + + | 06/04/ | Office | [place] [facility] | KleverKeitha Joie, | Anxiety (Primary | | 2019 | Visit | [facility] | DO [address] | Dx); Acute recurrent | | | | [facility] [address] | [place] [address] | frontal sinusitis | | | | [address] [place], | [phone] | | | | | [place] [address] | | | | | | [phone] | | | +--------+---------+ + + + [...] + + + | Blood Pressure | 126/84 | 06/04/2019 7:54 AM | | | | | PDT | | + + + + + | Pulse | 94 | 06/04/2019 7:54 AM | | | | | PDT | | + + + + + | Temperature | - | - | | + + + + + | Respiratory Rate | 18 | 06/04/2019 7:54 AM | | | | | PDT | | + + + + + | Oxygen Saturation | 98% | 06/04/2019 7:54 AM | | | | | PDT | | + + + + + | Inhaled Oxygen | - | - | | | Concentration | | | | + + + + + | Weight | 170.6 kg (376 lb) | 06/04/2019 7:54 AM | | | | | PDT | | + + + + + | Height | 177.8 cm (5' 10") | 06/04/2019 7:54 AM | | | | | PDT | | + + + + + | Body Mass Index | 53.95 | 06/04/2019 7:54 AM | | | | | PDT | | + + + + + documented in this encounter Progress Erika Cespedes DO - 06/04/2019 8:00 AM PDTFormatting of this note might be different fro m the original. Subjective: Patient ID: Andrea Suh is a 29 y.o. female. Here to FU On her anxiety. She is taking buspar and was on 15 mg TID but this makes her diz zy at times so she change to taking a half pill, 7.5 mg six times a day and this is working for her. She will continue this dose. She continues to FU with Emeka Vaughan for her [facility] therapy. She has good BP today. She states she has frontal sinus pressure and yell ow nasal drng for about 2 weeks now and not getting better and not feeling well. She denies fever. Does have the sinus pain. Has flonase and mucinex used. Non-smoker. See's Liam EN T for chronic ear and sinus issues. Review of Systems As above Objective: BP 126/84 | Pulse 94 | Resp 18 | Ht 1.778 m (5' 10") | Wt (!) 170.6 kg (376 lb) | LMP 05/18/2019 | SpO2 98% | BMI 53.95 kg/m Physical Exam Constitutional: She appears well-developed and well-nourished. No distress. HENT: Head: Normocephalic and atraumatic. Pain on palpation of frontal sinus areas both sides, yellow drng visible in posterior phary nx. Nasal passages red and boggy. TM's clear Eyes: Pupils are equal, round, and reactive to light. Conjunctivae and EOM are normal. Cardiovascular: Normal rate, regular rhythm and normal heart sounds. No murmur heard. Pulmonary/Chest: Effort normal and breath sounds normal. No respiratory distress. Lymphadenopathy: She has no cervical adenopathy. Neurological: No cranial nerve deficit. Coordination normal. Skin: Skin is warm and dry. Healed right wrist scar. Psychiatric: She has a normal mood and affect. Her behavior is normal. Judgment and thought content normal. Assessment: 1. Anxiety 2. Acute recurrent frontal sinusitis Plan: She will continue the Buspar changing to 7.5 mg six times a day to get even distrubution wi th no SE. Augmentin 875 mg BID X 10 days for sinus infection and FU with ENT. documented in this en counter Plan of Treatment +--------+ + + + + | Date | Type | Specialty | Care Team | Description | +--------+ + + + + | 10/01/ | Office | Primary Care | Erika Ernst, | | | 2018 | Visit | | DO [address] [place] | | | | | | [place] [address] | | | | | | [phone] | | | | | | | | +--------+ + + + + | 10/30/ | Office | Primary Care | Erika Ernst, | | | 2019 | Visit | | DO [address] [place] | | | | | | [place] [address] | | | | | | [phone] | | | | | | | | +--------+ + + + + | 11/07/ | Appointment | Nutrition | Janel Webster | | | 2019 | | | [place], [address] | | +--------+ + + + + | 11/28/ | Office | Otolaryngology | Anthony Alvarado MD | | 2019 | Visit | | [address] | | | | | | [place], [place] | | | | | | [address] | | | | | | [phone] | | | | | | | | +--------+ + + + + | 02/09/ | Office | Neurology | Dhara, | | | 2019 | Visit | | [address] | | | | | | [address] [facility], | | | | | | [place] [address] | | | | | | [phone] | | | | | | | | +--------+ + + + + documented as of this encounter Visit Diagnoses + + | Diagnosis | + + | Anxiety - Primary Anxiety state, unspecified | + + | Acute recurrent frontal sinusitis Acute frontal sinusitis | + + documented in this encounter
--- OUTSIDE RECORDS SUMMARY | ~2019-09-30 | XMS | Encounter Summary ---
Demographics + + + | Address | [address] | | | [place] [address] | + + + | Home Phone | | + + + | Preferred Language | Unknown | + + + | Marital Status | Single | + + + | Amish Affiliation | Unknown | + + + | Race | Unknown | + + + | Ethnic Group | Unknown | + + + Author + + + | Author | [facility] | | | and [place] | + + + | Organization | [facility] | | [...] Providers + +------+ + | Care Manager Planning Name | Role | Phone | + [...] | +--------+ + + + + | 06/27/ | Telephone | [facility] [facility] | Erika Ernst, | Medication Question | | 2019 | | [facility] | DO [address] | | | | | [facility] [address] | [place] [address] | | | | | [address] [facility], | [phone] | | | | | [place] [address] | | | | | | [phone] | | | +--------+ + + + [...] | | | | | [place] [address] | | | | | | [phone] | | | | | | | | +--------+ + + + + | 10/30/ | Office | Primary Care | Erika Ernst, | | | 2019 | Visit | | DO [address] | | | | | | [place] [address] | | | | | | [phone] | | | | | | | [...] [place] | | | | | | [address] | | | | | | [phone] | | | | | | | | +--------+ + + + + | 02/09/ | Office | Neurology | Dhara, | | | 2020 | Visit | | [address] | | | | | [address] [place], | | | | | | [place] [address] | | | | | | [phone] | | | | | | | | +--------+ + + + + documented as of this encounter Visit Diagnoses Not on filedocumented in this encounter"
--- OUTSIDE RECORDS SUMMARY | ~2019-09-30 | XMS | Encounter Summary ---
Demographics + + + | Address | [address] | | | [place] [address] | + + + | Home Phone | | + + + | Preferred Language | Unknown | + + + | Marital Status | Single | + + + | Yazidi Affiliation | Unknown | + + + [...] Team Providers + +------+ + | Care Poem Writer Name | Role | Phone | + +------+ + | Erika Ernst DO | PCP | | + +------+ + Reason for Referral Self-referral (Routine) + + + + + + + | Status | Reason | Specialty | Diagnoses / | Referred By | Referred To | | | | | Procedures | Contact | Contact | + + + + + + + | Authorized | Specialty | Psychiatry | Diagnoses | Klever, | Provider | | | Services | | PTSD | Erika A, DO | Not, In | | | Required | | (post-trauma | [address] | System | | | | | tic stress | [place], | [place] | | | | | disorder) | [place] [address] | Health and | | | | | Anxiety | Phone: | Service | | | | | Somatic | [phone] | | | | | | symptom | Fax: | | | | | | disorder | [phone] | | + + + + + + + Reason for Visit + + + | Reason | Comments | + + + | Follow-up | Wrist sprained | + + + | Follow-up | Labs BP, and Thyroid | + + + Encounter Details +--------+---------+ + + + | Date | Type | Department | Care Team | Description | +--------+---------+ + + + | 08/20/ | Office | [place] [facility] | Erika Ernst, | Essential | | 2019 | Visit | [facility] | DO [address] | hypertension | | | | MEDICAL CLIN[facility] [address] | [place] [address] | (Primary Dx); Iron | | | | [address] [place], | [phone] | deficiency; Acquired | | | | [place] [address] | | hypothyroidism; | | | | [phone] | | PTSD (post-traumatic | | | | | | stress disorder); | | | | | | Anxiety; Somatic | | | | | | symptom disorder; | | | | | | Sprain of right | | | | | | wrist, initial | | | | | | encounter | +--------+---------+ + + + Social History [...] + | Blood Pressure | 138/90 | 08/20/2019 11:00 AM | | | | | PST | | + + + + + | Pulse | 77 | 08/20/2019 11:00 AM | | | | | PST | | + + + + + | Temperature | - | - | | + + + + + | Respiratory Rate | 18 | 08/20/2019 11:00 AM | | | | | PST | | + + + + + | Oxygen Saturation | 98% | 08/20/2019 11:00 AM | | | | | PST | | + + + + + | Inhaled Oxygen | - | - | | | Concentration | | | | + + + + + | Weight | 175.5 kg (387 lb) | 08/20/2019 11:00 AM | | | | | PST | | + + + + + | Height | 177.8 cm (5' 10") | 08/20/2019 11:00 AM | | | | | PST | | + + + + + | Body Mass Index | 55.53 | 08/20/2019 11:00 AM | | | | | PST | | + + + + + documented in this encounter Erika Kumar DO - 08/20/2019 11:00 AM PSTFormatting of this note might be different fro m the original. Subjective: Patient ID: Andrea Suh is a 29 y.o. female. Here with a new sprain of the right wrist. She was seen in ER in [place] when she was helpi ng her Mom move boxes and strained her right wrist. Not work comp. She has had two surgeries on the wrist already due to work comp injury. She was given a brace and told to wear this f or a week and take ibuprofen for the inflammation and prn ultram for pain. She is already do ing OT due to the prior injury and will continue this. She will not be seeing Dr Noriega hand surgeon any longer and has new referral to Dr Modesto Blackwood in [place] for the prior work comp wrist hand issues. She is asking today about recheck on thyroid but we changed dose an d it has only been 3 weeks need to wait until 6 weeks for recheck. She has iron deficiency and stopped her iron for a week but we can recheck on that as well in 3 weeks. She is taking her iron now. She is very excited today that she is going to have oral facial surgery to re pair some jaw issues from childhood. She is having a lot of increase anxiety and is still wo rking with Emeka Griggs for therapy but does not see any one for medication. She is seein g a doctor every week for one issue or another and has many pain complaints. Dr Noriega sugges everardo she may have somatic disorder and this is possible but beyond my ability to determine an d help her. I wanted her to see our provider here in [place] who then could get her in to Dr Dioni Maravilla if needed but she declines. States she knows Radha personally an d does not feel comfortable with seeing her. She agrees to see a psychiatrist she knows in [facility] and we will make that referral. Non-smoker. Review of Systems As above Objective: BP 138/90 | Pulse 77 | Resp 18 | Ht 1.778 m (5' 10") | Wt (!) 175.5 kg (387 lb) | SpO2 98% | BMI 55.53 kg/m Physical Exam Constitutional: Appearance: Normal appearance. She is not ill-appearing. HENT: Head: Normocephalic. Eyes: Extraocular Movements: Extraocular movements intact. Pupils: Pupils are equal, round, and reactive to light. Cardiovascular: Rate and Rhythm: Regular rhythm. Heart sounds: No murmur. Pulmonary: Effort: Pulmonary effort is normal. Breath sounds: Normal breath sounds. Musculoskeletal: Comments: Right wrist brace on. Skin: Capillary Refill: Capillary refill takes less than 2 seconds. Neurological: General: No focal deficit present. Mental Status: She is alert and oriented to person, place, and time. Gait: Gait normal. Psychiatric: Thought Content: Thought content normal. Judgment: Judgment normal. Comments: Tearful Assessment: 1. Essential hypertension 2. Iron deficiency 3. Acquired hypothyroidism 4. PTSD (post-traumatic stress disorder) Psychiatry, External - AMB Referral 5. Anxiety Psychiatry, External - AMB Referral 6. Somatic symptom disorder Psychiatry, External - AMB Referral 7. Sprain of right wrist, initial encounter Plan: Add 2.5 mg ramipril to the 5 mg dose for better HTN control. FU in 3 weeks for recheck on H TN and check on TSH and iron levels at that time. Referral to Dr Woo psychiatrist for m ental health issues. Anxiety with PTSD and I suspect somatic disorder. Continue the ER inst ructions for the wrist sprain, brace for a week then try off and if no pain can leave off, Ibuprofen and ultram prn. Continue work with OT that she is doing already anyway. Note for w ork no weight lifting over 5 # until further notice, visit with Dr Bob documented in this en counter Plan of Treatment +--------+ + + + + | Date | Type | Specialty | Care Team | Description | +--------+ + + + + | 10/01/ | Office | Primary Care | Erika Ernst, | | | 2018 | Visit | | DO [address] | | | | | | [place] [address] | | | | | | [phone] | | | | | | | | +--------+ + + + + | 10/30/ | Office | Primary Care | Erika Ernst, | | | 2019 | Visit | | DO [address] | | | | | | [place] [address] | | | | | | [phone] | | | | | | | [...] | | | | | | [place], [place] | | | | | | [address] | | | | | | [phone] | | | | | | | | +--------+ + + + + | 02/09/ | Office | Neurology | Dhara, | | | 2019 | Visit | | [address] | | | | | | [address] [facility], | | | | | | [place] [address] | | | | | | [phone] | | | | | | | | +--------+ + + + + + + +--------+ + + | Name | Type | Priori | Associated Diagnoses | Order Schedule | | | | ty | | | + + +--------+ + + | Psychiatry, External | Outpatient | Routin | PTSD | Ordered: 08/20/2019 | | - AMB Referral | Referral | e | (post-traumatic | | | | | | stress disorder) | | | | | | Anxiety Somatic | | | | | | symptom disorder | | + + +--------+ + + documented as of this encounter Visit Diagnoses + + | Diagnosis | + + | Essential hypertension - Primary Unspecified essential hypertension | + + | Iron deficiency Other disorders of iron metabolism | + + | Acquired hypothyroidism Unspecified hypothyroidism | + + | PTSD (post-traumatic stress disorder) Posttraumatic stress disorder | + + | Anxiety Anxiety state, unspecified | + + | Somatic symptom disorder | + + | Sprain of right wrist, initial encounter | + + documented in this encounter
--- OUTSIDE RECORDS SUMMARY | ~2019-09-30 | XMS | Encounter Summary ---
Demographics + + + | Address | [address] | | | [place] [address] | + + + | Home Phone | | + + + | Preferred Language | Unknown | + + + | Marital Status | Single | + + + | Sikhism Affiliation | Unknown | + + + | Race | Unknown | + + + | Ethnic Group | Unknown | + + + Author + + + | Author | [facility] | | | and [place] | + + + | Organization | [facility] | | | [...] Team Providers + +------+ + | Care Residential Installer Name | Role | Phone | + +------+ + PCP | Unavailable | + +------+ + Encounter Details +--------+ + + + + | Date | Type | Department | Care Team | Description | +--------+ + + + + | 06/30/ | [facility] | Denise Mcgregor | | | 2017 | Encounter | [facility] | G, NIGHT WAREHOUSE SELECTOR [address] | | | | | MEDICAL CLIN[facility] [address] | [facility] [place] | | | | | [address] [facility], | [address] | | | | | [place] [address] | [phone] | | | | | [phone] | | | +--------+ + + + [...] | | | | | [place] [address] | | | | | | [phone] | | | | | | | | +--------+ + + + + | 10/30/ | Office | Primary Care | Erika Ernst, | | | 2019 | Visit | | DO [address] | | | | | | [place] [address] | | | | | | [phone] | | | | | | | [...] [place] | | | | | | [address] | | | | | | [phone] | | | | | | | | +--------+ + + + + | 02/09/ | Office | Neurology | Dhara, | | | 2019 | Visit | | [address] | | | | [address] [place], | | | | | | [place] [address] | | | | | | [phone] | | | | | | | | +--------+ + + + + documented as of this encounter Visit Diagnoses Not on filedocumented in this encounter"
--- OUTSIDE RECORDS SUMMARY | ~2019-09-30 | XMS | Encounter Summary ---
Demographics + + + | Address | [address] | | | [place] [address] | + + + | Home Phone [...] Team Providers + +------+ + | Care Anchorman Name | Role | Phone | + [...] + + + + | 06/18/ | Telephone | [place] [facility] | Erika Ernst, | Lab Results | | 2019 | | [facility] | DO [address] | | | | | MEDICAL CLIN[facility] [address] | [place] [address] | | | | | [address] [place], | [phone] | | | | | [place] [address] | | | | | | [phone] | | | +--------+ + + + [...] | Visit | | DO [address] | | | | | | [place] [address] | | | | | | [phone] | | | | | | | | +--------+ + + + + | 10/30/ | Office | Primary Care | Erika Ernst, | | | 2019 | Visit | | DO [address] [place] [address] | | | | | | [place] [address] | | | | | | [phone] | | | | | | | | +--------+ + + + + | 11/07/ | Appointment | Nutrition | Janel Webster | | | 2019 | | | [place] | | +--------+ + + + + | 11/28/ | Office | Otolaryngology | Anthony Alvarado MD | | 2019 | Visit | | [address] | | | | | | [place] | | | | | | [address] | | | | | | [phone] | | | | | | | | +--------+ + + + + | 02/09/ | Office | Neurology | Dhara, | | | 2019 | Visit | | [address] | | | | [address] [place], | | | | | | [place] [address] | | | | | | [phone] | | | | | | | | +--------+ + + + + documented as of this encounter Visit Diagnoses Not on filedocumented in this encounter"
--- OUTSIDE RECORDS SUMMARY | ~2019-09-30 | XMS | Encounter Summary ---
Demographics + + + | Address | [address] | | | [place] [address] | + + + | Home Phone [...] Team Providers + +------+ + | Care Yardage Control Clerk Name | Role | Phone | + +------+ + | Erika Ernst DO | PCP | | + +------+ + Reason for Visit + + + | Reason | Comments | + + + | Scheduling Issues | | + + + Encounter Details +--------+ + + + + | Date | Type | Department | Care Team | Description | +--------+ + + + + | 07/24/ | Telephone | [place] [facility] | Nick Barrios I, | Scheduling Issues | | 2017 | | [facility] PT | PT | | | | | [address] [place] | | | | | | [place] | | | | | | [address] | | | | | | [phone] | | | +--------+ + + + [...] | | | | | [place] [address] | | | | | | [phone] | | | | | | | | +--------+ + + + + | 10/30/ | Office | Primary Care | Erika Ernst, | | | 2019 | Visit | | DO [address] | | | | | | [place] [address] | | | | | | [phone] | | | | | | | [...] [place] | | | | | | [address] | | | | | | [phone] | | | | | | | | +--------+ + + + + | 02/09/ | Office | Neurology | Dhara, | | | 2019 | Visit | | [address] | | | | | [address] [place], | | | | | | [place] [address] | | | | | | [phone] | | | | | | | | +--------+ + + + + documented as of this encounter Visit Diagnoses Not on filedocumented in this encounter"
--- OUTSIDE RECORDS SUMMARY | ~2019-09-30 | XMS | Encounter Summary ---
Demographics + + + | Address | [address] | | | [place] [address] | + + + | Home Phone | | + + + | Preferred Language | Unknown | + + + | Marital Status | Single | + + + | Nondenominational Affiliation | Unknown | + + + | Race | Unknown | + + + | Ethnic Group | Unknown | + + + Author + + + | Author | [facility] | | | and [place] | + + + | Organization | [facility] | | | and [...] Team Providers + +------+ + | Care Rotary Driller Helper Name | Role | Phone | + [...] Closed | | Rehabilitatio | Diagnoses | Klever, | Cc Wgr | | | | n | Sprain of | Erika A, DO | Therapy Pt | | | | | calcaneofibu | [address] | [address] | | | | | lar ligament | [place], | [place], | | | | | of left | [place] [address] | [place] [address] | | | | | ankle, | Phone: | Phone: | | | | | initial | [phone] | [phone] | | | | | encounter | Fax: | Fax: | | | | | Procedures | [phone] | [phone] | | | | | PT TREAT | | | +--------+--------+ + + + + Encounter Details +--------+ + + + + | Date | Type | Department | Care Team | Description | +--------+ + + + + | 09/21/ | Hospital | [place] [facility] | Erika Ernst, | Sprain of left | | 2018 | Encounter | [facility] PT | DO [address] | ankle, subsequent | | | | [address] [place] | [place] [address] | encounter (Primary | | | | [place], [place] | [phone] | Dx) | | | | [address] | | | | | | [phone] | Nick Barrios I, PT | | [...] Progress Notes Nick Barrios I, PT - 09/21/2018 4:56 PM PSTFormatting of this note might be different fro m the original. [facility] PT [address] [place] [address] Physical Therapy Daily Treatment Note Date: 09/21/2018 Patient Information Patient Name: Andrea Suh Date of : 1990 Age: 28 y.o. Encounter Diagnoses Code Name Primary? S93.402D Sprain of left ankle, subsequent encounter Yes Date of Onset: 06/11/2018 Referring Provider: Erika Ernst DO Objective Pain Assessment: Pain Rating Pre Assessment: 4 Pain Rating Post Assessment: 4 Location: Left medial ankle Standardized Tests: Lower Extremity Functional Scale (LEFS) Lower Extremity Functional Scale Goal: 75 Lower Extremity Functional Scale Goal Status: Ongoing Today's Treatment Patient Name: Andrea Suh/: 1990/ Start Time: 1300 Stop time: 1357 Duration: 57 minutes Timed Treatment Codes: 54 minutes # of PT Visits to Date: 15 Visit Summary: S: Feeling okay. I was sore over the weekend, but it wasn't too bad. I feel that I have gotten better since the start of coming to physical therapy. A: Patient required frequent verbal/visual cueing in order to perform LE exercises correctly. Tolerated increas ed difficulty of LE strengthening, but overall pain symptoms continue to persist. Physical t herapy remains medically necessary in order to reduce pain symptoms and return patient to pr ior level of function. Next Visit Information: Progress LE strength and balance exercises with steps, bosu, bridge progression, quantum, leg press, lunges. Progress aquatic exercise as tolerated. Therapy Interventions HEP: ONGOING: SL heel raise on step 3x15 3x/wk, Tandem gait as tolerated 4x/day, supine b ridges 3x10 progressing to 15 4x/wk // Sidelying hip abduction 3x10 progressing to 15 4x/wk // Tandem stance 2x60 second holds each foot position 1x/day // Using RTB in door jam rather than holding onto with hands. Discontinue PF with theraband in favor of SL heel raise with ALL AROUND PATTERNMAKER. ONGOING: SLS on even surface 3x30 seconds 1x/day // Double leg heel raise 3x10 3x/wk / / forward/lateral step ups on 8" step 3x10 3x/wk each // standing achilles stretch 3x30 seco nds 1x/day. // 4 way ankle PRE yellow theraband 3x10 each direction 3x/wk. // Ankle inversio n/eversion 3x10 progressing to 20 1x/day // ankle ABC's 3x/day. // Ankle pumps 3x10 progress ing to 20 repetitions 1x/day // ankle circles 3x10 progressing to 20 repetitions each direct ion 1x/day PT INTERVENTION 1: TE - (54 minutes) TM ambulation 10 minutes @ 1.1 mph, Step up with opp hip flexion on round bosu 2x10 with use of grab bar for balance assistance, half lunges whi le holding grab bar for support 3x10 each LE foot position; required max verbal/visual cues to perform correctly, but continued to struggle to perform correctly, Leg press 2x15 100 lb s, Quantum hip abduction 2x10 60 lbs each LE, Quantum hip extension 2x10 120 lbs each LE, additional time required for rest between exercises, patient required cueing to perform exe rcises correctly. Assessment Rehabilitation potential: Patient demonstrates fair potential to achieve established goals and fair potential to achieve prior status to address the documented impairments by particip ating in skilled physical therapy services. Goals: Patient Reported Outcome Goals Lower Extremity Functional Scale Goal: 75 Lower Extremity Functional Scale Goal Status: Ongoing OP PT Goals Goal 1: Patient will demonstrate I with HEP for 3 consecutive weeks in order to improve fun ctional outcomes with physical therapy. Goal 1 Status: Goal met; Goal 2: Patient will improve L ankle ROM equal to or greater than R ankle Goal 2 Status: Ongoing Goal 3: Patient will tolerate walking for 1 mile without taking breaks due to pain to retur n to previous level of activity. Goal 3 Status: Ongoing Goal 4: Patient will experience reduced L ankle pain of 1/10 or less for 2 consecutive week s in order to return to previous level of activity. Goal 4 Status: Ongoing; pain rated at 4/10 today Electronically signed by: Nick Barrios PT, 09/21/2018 16:56 Patient Name: Andrea Suh/: 1990/ documented in [...] | | | | | [place] [address] | | | | | | [phone] | | | | | | | | +--------+ + + + + | 10/30/ | Office | Primary Care | Erika Ernst, | | | 2019 | Visit | | DO [address] [place] | | | | | | [place] [address] | | | | | | [phone] | | | | | | | [...] [place] | | | | | | [address] | | | | | | [phone] | | | | | | | | +--------+ + + + + | 02/09/ | Office | Neurology | Dhara, | | | 2019 | Visit | | [address] | | | | | [address] [place], | | | | | | [place] [address] | | | | | | [phone] | | | | | | | | +--------+ + + + + documented as of this encounter Visit Diagnoses + + | Diagnosis | + + | Sprain of left ankle, subsequent encounter - Primary | + + documented in this encounter
--- OUTSIDE RECORDS SUMMARY | ~2019-09-30 | XMS | Encounter Summary ---
Demographics + + + | Address | [address] | | | [place] [address] | + + + | Home Phone | | + + + | Preferred Language | Unknown | + + + | Marital Status | Single | + + + | Mu-Ism Affiliation | Unknown | + + + [...] Team Providers + +------+ + | Care Network Operations Lead Name | Role | Phone | + +------+ + PCP | Unavailable | + +------+ + Encounter Details +--------+ + + + + | Date | Type | Department | Care Team | Description | +--------+ + + + + | 07/26/ | Hospital | [facility] | Amaya Varner NP | | | 2016 | Encounter | [facility] | [address] | | | | | MEDICAL CL[facility] [address] | [place], [place] | | | | [address] [place], | [address] | | | | | [place] [address] | [phone] | | | | | [phone] | | | +--------+ + + + [...] | | | | | [place] [address] | | | | | | [phone] | | | | | | | | +--------+ + + + + | 10/30/ | Office | Primary Care | Erika Ernst, | | | 2019 | Visit | | DO [address] [place] | | | | | | [place] [address] | | | | | | [phone] | | | | | | | [...] [place] | | | | | | [address] | | | | | | [phone] | | | | | | | | +--------+ + + + + | 02/09/ | Office | Neurology | Dhara, | | | 2019 | Visit | | [address] | | | | [address] [place], | | | | | | [place] [address] | | | | | | [phone] | | | | | | | | +--------+ + + + + documented as of this encounter Visit Diagnoses Not on filedocumented in this encounter"
--- OUTSIDE RECORDS SUMMARY | ~2019-09-30 | XMS | Encounter Summary ---
Demographics + + + | Address | [address] | | | [place] [address] | + + + | Home Phone [...] Team Providers + +------+ + | Care Cushion Maker Name | Role | Phone | + +------+ + PCP | Unavailable | + +------+ + Encounter Details +--------+ + + + + | Date | Type | Department | Care Team | Description | +--------+ + + + + | 12/28/ | [facility] | Heike Rodriguez, | | | 2013 | Encounter | [facility] | CIRCULATION SALES REPRESENTATIVE [address] | | | | | C[address] | [place] | | | | | [place] | [address] | | | | | [address] | | | | | | [phone] | | | +--------+ + + + [...] | | | | | [place] [address] | | | | | | [phone] | | | | | | | | +--------+ + + + + | 10/30/ | Office | Primary Care | Erika Ernst, | | | 2019 | Visit | | DO [address] [place] | | | | | | [place] [address] | | | | | | [phone] | | | | | | | [...] [place] | | | | | | [address] | | | | | | [phone] | | | | | | | | +--------+ + + + + | 02/09/ | Office | Neurology | Dhara, | | | 2020 | Visit | | [address] | | [address] [place], | | | | | | [place] [address] | | | | | | [phone] | | | | | | | | +--------+ + + + + documented as of this encounter Visit Diagnoses Not on filedocumented in this encounter"
--- OUTSIDE RECORDS SUMMARY | ~2019-09-30 | XMS | Encounter Summary ---
Demographics + + + | Address | [address] | | | [place] [address] | + + + | Home Phone | | + + + | Preferred Language | Unknown | + + + | Marital Status | Single | + + + | Bahai Affiliation | Unknown | + + + [...] Team Providers + +------+ + | Care Tripper Name | Role | Phone | + [...] | | | | s (de | [place], [place] | [place] [address] | | | | | quervain) | [address] | Phone: | | | | | Pain in | Phone: | [phone] | | | | | right wrist | [phone] | Fax: | | | | | Procedures | Fax: | [phone] | | | | | OT TREAT | [phone] | | +--------+--------+ + + + + Encounter Details +--------+ + + + + | Date | Type | Department | Care Team | Description | +--------+ + + + + | 11/08/ | Hospital | [facility] | Jeffrey Gandhi, | Radial styloid | | 2019 | Encounter | HOSPITAL THERAPY OT | [address] | tenosynovitis | | | | [address] | [place] [address] | (Primary Dx); Right | | | | [place], [place] | [phone] | wrist pain | | | | [address] | | | | | | [phone] | Nakia Koo OT | | +--------+ + + + [...] documented as of this encounter Progress Notes Nakia Koo, OT - 11/09/2018 2:17 PM PST [facility] OT [address] [place] [address] Occupational Therapy Daily Treatment Note Date: 11/08/2018 Patient Information Patient Name: Andrea Suh Date of : 1990 Age: 28 y.o. History Encounter Diagnoses Code Name Primary? M65.4 Radial styloid tenosynovitis Yes M25.531 Right wrist pain Date of Onset: 07/20/2018 Referring Provider: Jeffrey Gandhi MD Objective Pain Assessment: Pain Rating Pre Assessment: 3 Location: Central right wrist Today's Treatment Patient Name: Andrea Suh/: 1990/ Start Time: 1100 Stop time: 1151 Duration: 51 minutes Timed Treatment Codes: 45 minutes # of OT Visits: 15.7 Visit Summary: S: I'm doing my exercises, pain is decreasing somewhat but the popping is st ill there. A: Continued strengthening with emphasis on carpal stability and application of K tape Next Visit: Check response to Dart Throwers exercise Interventions OT INTERVENTION 2: TE - 30 minutes: Added dart throwers exercises without resistance then with 1 lb resistance to increase carpal stability to address popping. This added to HEP. Wit h 3 lb x 5 - wrist extension, radial deviation and flexion. Holding a hammer 3" from the he ad, controlled supination/pronation to increase wrist stability. UBC 8 minutes, alternating forward and backward each minute, 4 minutes bilaterally, 4 minutes right hand only (not bill ed). Wrist roll - 3 lbs x 3. Biceps curl with press with 5 lb weight x 15. Inclined push u ps at the parallel bars x 15. TRX for inclined pull ups x 15. OT MANUAL THERAPY 1: 15 minutes - Graston technique for soft tissue mobilization, joint mob ilization of the wrist in all planes. Application of light touch K Tape at the conclusion of treatment - one rectangular piece over the TFCC and one long piece over the central volar s urface of the wrist and forearm where pain is primarily located. OT MODALITY 1: Moist heat to volar and dorsal wrist and hand to increase circulation, joint and soft tissue mobility. Assessment 10/30/2018 - REASON FOR RE-CERTIFICATION: Andrea has received 12 Occupational Therapy treatm ents since 08/07/2018 following her right wrist surgery. 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 She has returned to modified work duty. S he continues to benefit from Occupational Therapy to address these deficits and facilitate r eturn to full functional use of her right hand, including return to work. 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 Electronically signed by: Nakia Koo OT, 11/09/2018 14:17 Patient Name: Andrea Suh/: 1990/ documented in this enco unter Plan of Treatment +--------+ + + + + | Date | Type | Specialty | Care Team | Description | +--------+ + + + + | 10/01/ | Office | Primary Care | Erika Ernst, | | | 2018 | Visit | | DO [address] [place] | | | | | | [place] [address] | | | | | | [phone] | | | | | | | | +--------+ + + + + | 10/30/ | Office | Primary Care | Erika Ernst, | | | 2019 | Visit | | DO [address] [place] | | | | | | [place] [address] | | | | | | [phone] | | | | | | | [...] [place] | | | | | | [address] | | | | | | [phone] | | | | | | | | +--------+ + + + + | 02/09/ | Office | Neurology | Dhara, | | | 2019 | Visit | | [address] | | | | | | [address] [place], | | | | | | [place] [address] | | | | | | [phone] | | | | | | | | +--------+ + + + + documented as of this encounter Visit Diagnoses + + | Diagnosis | + + | Radial styloid tenosynovitis - Primary | + + | Right wrist pain Pain in joint, forearm | + + documented in this encounter
--- OUTSIDE RECORDS SUMMARY | ~2019-09-30 | XMS | Encounter Summary ---
Demographics + + + | Address | [address] | | | [place] [address] | + + + | Home Phone | | + + + | Preferred Language | Unknown | + + + | Marital Status | Single | + + + | Anabaptist Affiliation | Unknown | + + + | Race | Unknown | + + + | Ethnic Group | Unknown | + + + Author + + + | Author | [facility] | | | and [place] | + + + | Organization | [facility] | | | [...] Team Providers + +------+ + | Care Fitness/Wellness Director Name | Role | Phone | [...] | | | | s (de | [place], [place] | [place] [address] | | | | | quervain) | [address] | Phone: | | | | | Pain in | Phone: | [phone] | | | | | right wrist | [phone] | Fax: | | | | | Procedures | Fax: | [phone] | | | | | OT TREAT | [phone] | | +--------+--------+ + + + + Encounter Details +--------+ + + + + | Date | Type | Department | Care Team | Description | +--------+ + + + + | 11/01/ | Hospital | [facility] [facility] | Jeffrey Gandhi, | Radial styloid | | 2019 | Encounter | HOSPITAL THERAPY OT | [address] | tenosynovitis | | | | [address] | [place] [address] | (Primary Dx); Right | | | | [place], [place] | [phone] | wrist pain | | | | [address] | | | | | | [phone] | Nakia Koo OT | | +--------+ [...] | 19 | 9 | | BRACE [id number]) | | | | | | | [...] REDIHALER 80 | | | 0 | 10/29/19 | | | MCG/ACT inhaler | | | | 19 | 9 | + + + +---------+ + + documented as of this encounter Progress Notes Nakia Koo, OT - 11/01/2018 1:22 PM PST [facility] THERAPY OT [address] [place] [address] Occupational Therapy Daily Treatment Note Date: 11/01/2018 Patient Information Patient Name: Andrea Suh Date of : 1990 Age: 28 y.o. History Encounter Diagnoses Code Name Primary? M65.4 Radial styloid tenosynovitis Yes M25.531 Right wrist pain Date of Onset: 07/20/2018 Referring Provider: Jeffrey Gandhi MD Objective Pain Assessment: Pain Rating Pre Assessment: 3 Today's Treatment Patient Name: Andrea Suh/: 1990/ Start Time: 903 Stop time: 957 Duration: 54 minutes Timed Treatment Codes: 45 minutes # of OT Visits: 13.5 Visit Summary: S: The K tape really helps and I was "muscle sore" after last visit but not painful in my wrist. A: Continued focus on specific and general strengtheing with improvemen ts being made indicated by increasing demand of gym exercises. Next Visit: Response to strengthening. Interventions OT INTERVENTION 2: TE - 30 minutes: With 3 lb x 5 - wrist extension, radial deviation and flexion. Holding a hammer 3" from the head, controlled supination/pronation to increase wri st stability. UBC 8 minutes, alternating forward and backward each minute, 4 minutes bilater ally, 4 minutes right hand only. Wrist roll - 3 lbs increased to x 3. Biceps curl with pres s with 5 lb weight x 15. Inclined push ups at the parallel bars x 15. Added TRX for incline d pull ups x 15 - pt very tentative with this exercise with fear of falling. Cable machine - 2 plates for functional pulling and pushing x 15 each position. Functional lifting with one plate x 15 . OT MANUAL THERAPY 1: 15 minutes - Graston technique for soft tissue mobilization, joint mob ilization of the wrist in all planes. Application of K Tape at the conclusion of treatment - from elbow in 2 fingers at 25% stretch to the thumb and one rectangular piece over the TFCC . OT MODALITY 1: Moist heat to volar and dorsal wrist and hand to increase circulation, joint and soft tissue mobility. Assessment 10/30/2018 - REASON FOR RE-CERTIFICATION: Andrea has received 12 Occupational Therapy treatm ents since 08/07/2018 following her right wrist surgery. 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 Electronically signed by: Nakia Koo OT, 11/01/2018 13:22 Patient Name: Andrea Suh/: 1990/ documented in [...] | | | | | [place] [address] | | | | | | [phone] | | | | | | | | +--------+ + + + + | 10/30/ | Office | Primary Care | Erika Ernst, | | | 2019 | Visit | | DO [address] [place] | | | | | | [place] [address] | | | | | | [phone] | | | | | | | [...] [place] | | | | | | [address] | | | | | | [phone] | | | | | | | | +--------+ + + + + | 02/09/ | Office | Neurology | Dhara, | | | 2019 | Visit | | [address] | | | [address] [place], | | | | | | [place] [address] | | | | | | [phone] | | | | | | | | +--------+ + + + + documented as of this encounter Visit Diagnoses + + | Diagnosis | + + | Radial styloid tenosynovitis - Primary | + + | Right wrist pain Pain in joint, forearm | + + documented in this encounter
--- OUTSIDE RECORDS SUMMARY | ~2019-09-30 | XMS | Encounter Summary ---
Demographics + + + | Address | [address] | | | [place] [address] | + + + | Home Phone | | + + + | Preferred Language | Unknown | + + + | Marital Status | Single | + + + | Presybeterian Affiliation | Unknown | + + + | Race | Unknown | + + + | Ethnic Group | Unknown | + + + Author + + + | Author | [facility] | | | and [place] | + + + | Organization | [facility] | | | [...] Team Providers + +------+ + | Care Climatology Teacher Name | Role | Phone | + +------+ + | Erika Ernst DO | PCP | | + +------+ + Reason for Visit + + + | Reason | Comments | + + + | Bronchitis | symptoms are worse | + + + Encounter Details +--------+ + + + + | Date | Type | Department | Care Team | Description | +--------+ + + + + | 05/15/ | Telephone | [facility] | Erika Ernst, | Bronchitis (symptoms | | 2018 | | [facility] | DO [address] | are worse) | | | | [facility] [address] | [place] [address] | | | | [address] [place], | [phone] | | | | | [place] [address] | | | | | | [phone] | | | +--------+ + + + [...] | | | | | [place] [address] | | | | | | [phone] | | | | | | | | +--------+ + + + + | 10/30/ | Office | Primary Care | Erika Ernst, | | | 2019 | Visit | | DO [address] | | | | | | [place] [address] | | | | | | [phone] | | | | | | | [...] [place] | | | | | | [address] | | | | | | [phone] | | | | | | | | +--------+ + + + + | 02/09/ | Office | Neurology | Dhara, | | | 2020 | Visit | | [address] | | | | [address] [place], | | | | | | [place] [address] | | | | | | [phone] | | | | | | | | +--------+ + + + + documented as of this encounter Visit Diagnoses Not on filedocumented in this encounter"
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
--- OUTSIDE RECORDS SUMMARY | ~2019-09-30 | XMS | Encounter Summary ---
Demographics + + + | Address | [address] | | | [place] [address] | + + + | Home Phone [...] + + + | Author | [facility] | | | and [place] | + + + | Organization | [facility] | | | [...] Team Providers + +------+ + | Care Per Diem Nurse Name | Role | Phone | + +------+ + | Erika Ernst DO | PCP | | + +------+ + Reason for Visit +--------+ + | Reason | Comments | +--------+ + | Other | referral | +--------+ + Encounter Details +--------+ + + + + | Date | Type | Department | Care Team | Description | +--------+ + + + + | 09/19/ | Telephone | [facility] [facility] | Erika Ernst, | Other (referral) | | 2019 | | [facility] | DO [address] | | | | | [facility] [address] | [facility] [place] [address] | | | | | [address] [place], | [phone] | | | | | [place] [address] | | | | | | [phone] | | | +--------+ + + + [...] | Visit | | DO [address] | | | | | | [place] [address] | | | | | | [phone] | | | | | | | | +--------+ + + + + | 10/30/ | Office | Primary Care | Erika Ernst, | | | 2019 | Visit | | DO [address] [facility] [address] | | | | | | [place] [address] | | | | | | [phone] | | | | | | | [...] [place] | | | | | | [address] | | | | | | [phone] | | | | | | | | +--------+ + + + + | 02/09/ | Office | Neurology | Dhara, | | | 2019 | Visit | | [address] | [address] [place], | | | | | | [place] [address] | | | | | | [phone] | | | | | | | | +--------+ + + + + documented as of this encounter Visit Diagnoses Not on filedocumented in this encounter"
--- OUTSIDE RECORDS SUMMARY | ~2019-09-30 | XMS | Encounter Summary ---
Demographics + + + | Address | [address] | | | [place] [address] | + + + | Home Phone | | + + + | Preferred Language | Unknown | + + + | Marital Status | Single | + + + | Druze Affiliation | Unknown | + + + [...] Team Providers + +------+ + | Care Florist Manager Name | Role | Phone | + +------+ + | Erika Ernst DO | PCP | | + +------+ + Encounter Details +--------+ + + + + | Date | Type | Department | Care Team | Description | +--------+ + + + + | 06/17/ | Hospital | [facility] | Conversion | Diagnosis unknown | | 2018 | Encounter | CONVERSION [address] | Transaction, | | | | | [address] | Provider Unknown | | | | | [place], [place] | [phone] | | | | | [address] | (Fax) | | | | | [phone] | | | +--------+ + + + [...] tablet by | 16 | 0 | 03/19/20 | | | (VITAMIN D3) [id number] | mouth Once a week | tablet | | 18 | 8 | | units TABS | for 16 [...] Visit | | DO [address] [place] | | | | | | [place] [address] | | | | | | [phone] | | | | | | | | +--------+ + + + + | 10/30/ | Office | Primary Care | Erika Ernst, | | | 2019 | Visit | | DO [address] [place] | | | | | | [place] [address] | | | | | | [phone] | | | | | | | [...] [place] | | | | | | [address] | | | | | | [phone] | | | | | | | | +--------+ + + + + | 02/09/ | Office | Neurology | Dhara, | | | 2019 | Visit | | [address] | | | | | [address] [place], | | | | | | [place] [address] | | | | | | [phone] | | | | | | | | +--------+ + + + + documented as of this encounter Procedures + +--------+ + + + | Procedure Name | Priori | Date/Time | Associated Diagnosis | Comments | | | ty | | | | + +--------+ + + + | MRI WRIST RIGHT WO | Routin | 12/05/2017 | | Results for this | | CONTRAST | e | 5:40 PM | | procedure are in the | | | | PST | | results section. | + +--------+ + + + documented in this encounter Results MRI Wrist Right wo Contrast (12/05/2017 5:40 PM PST) + + | Specimen | + + | | + + + + + | Narrative | Performed At | + + + | This is a non-reportable procedure without a radiologist report and | | | is used for image storage only | | + + + + + | Procedure Note | + + | Yoni Grullon - 05/15/2019 5:35 PM PDT This is a non-reportable procedure | | without a radiologist report and isused for image storage only | + + documented in this encounter Visit Diagnoses + + | Diagnosis | + + | Diagnosis unknown Other unknown and unspecified cause of morbidity or mortality | + + documented in this encounter"
--- OUTSIDE RECORDS SUMMARY | ~2019-09-30 | XMS | Encounter Summary ---
Demographics + + + | Address | [address] | | | [place] [address] | + + + | Home Phone | | + + + | Preferred Language | Unknown | + + + | Marital Status | Single | + + + | Judaism Affiliation | Unknown | + + + | Race | Unknown | + + + | Ethnic Group | Unknown | + + + Author + + + | Author | [facility] | | | and [place] | + + + | Organization | [facility] | | | [...] Team Providers + +------+ + | Care Engravings Polisher Name | Role | Phone | + +------+ + | Erika Ernst DO | PCP | | + +------+ + Reason for Visit +--------+ + | Reason | Comments | +--------+ + | Other | FMLA paperwork | +--------+ + Encounter Details +--------+ + + + + | Date | Type | Department | Care Team | Description | +--------+ + + + + | 03/26/ | Telephone | [facility] | Inocencio Noriega | Other (FMLA | | 2019 | | [facility] | MD [address] | paperwork) | | | | [address] [place] | [address] | | | | | [place], [place] | [place] [address] | | | | | [address] | [phone] | | | | | [phone] | | | +--------+ + + + [...] | | | | | [place] [address] | | | | | | [phone] | | | | | | | | +--------+ + + + + | 10/30/ | Office | Primary Care | Erika Ernst, | | | 2019 | Visit | | DO [address] [place] [address] | | | | | | [place] [address] | | | | | | [phone] | | | | | | | [...] [place] | | | | | | [address] | | | | | | [phone] | | | | | | | | +--------+ + + + + | 02/09/ | Office | Neurology | Dhara, | | | 2019 | Visit | | [address] | | | | | [address] [place], | | | | | | [place] [address] | | | | | | [phone] | | | | | | | | +--------+ + + + + documented as of this encounter Visit Diagnoses Not on filedocumented in this encounter"
--- OUTSIDE RECORDS SUMMARY | ~2019-09-30 | XMS | Encounter Summary ---
Demographics + + + | Address | [address] | | | [place] [address] | + + + | Home Phone | | + + + | Preferred Language | Unknown | + + + | Marital Status | Single | + + + | Mandaeism Affiliation | Unknown | + + + | Race | Unknown | + + + | Ethnic Group | Unknown | + + + Author + + + | Author | [facility] | | | and [place] | + + + | Organization | [facility] | | | [...] Team Providers + +------+ + | Care Production Line Welder Name | Role | Phone | + +------+ + PCP | Unavailable | + +------+ + Encounter Details +--------+ + + + + | Date | Type | Department | Care Team | Description | +--------+ + + + + | 08/02/ | [facility] | [facility] | Erika Ernst, | | | 2015 | Encounter | [facility] | DO [address] | | | | | MEDICAL CL[facility] [address] | [facility] [place] [address] | | | | | [address] [place], | [phone] | | | | | [place] [address] | | | | | | [phone] | | | +--------+ + + + [...] by Nasal route. | | 0 | 05/20 | | | (FLONASE) 50 | | [...] | | | | | [place] [address] | | | | | | [phone] | | | | | | | | +--------+ + + + + | 10/30/ | Office | Primary Care | Erika Ernst, | | | 2019 | Visit | | DO [address] | | | | | | [place] [address] | | | | | | [phone] | | | | | | | [...] [place] | | | | | | [address] | | | | | | [phone] | | | | | | | | +--------+ + + + + | 02/09/ | Office | Neurology | Dhara, | | | 2019 | Visit | | [address] | | | | | [address] [place], | | | | | | [place] [address] | | | | | | [phone] | | | | | | | | +--------+ + + + + documented as of this encounter Visit Diagnoses Not on filedocumented in this encounter"
--- OUTSIDE RECORDS SUMMARY | ~2019-09-30 | XMS | Encounter Summary ---
Demographics + + + | Address | [address] | | | [place] [address] | + + + | Home Phone | | + + + | Preferred Language | Unknown | + + + | Marital Status | Single | + + + | Restoration Affiliation | Unknown | + + + | Race | Unknown | + + + | Ethnic Group | Unknown | + + + Author + + + | Author | [facility] | | | and [place] | + + + | Organization | [facility] | | [...] Team Providers + +------+ + | Care Mobile Application Architect Name | Role | Phone | + +------+ + PCP | Unavailable | + +------+ + Encounter Details +--------+ + + + + | Date | Type | Department | Care Team | Description | +--------+ + + + + | 10/24/ | [facility] | Erika Ernst, | | | 2016 | Encounter | [facility] | DO [address] | | | | | [address] [place] | [place] [address] | | | | | [place], [place] | [phone] | | | | | [address] | | | | | | [phone] | | | +--------+ + + + [...] | | | | | [place] [address] | | | | | | [phone] | | | | | | | | +--------+ + + + + | 10/30/ | Office | Primary Care | Erika Ernst, | | | 2019 | Visit | | DO [address] | | | | | | [place] [address] | | | | | | [phone] | | | | | | | [...] [place] | | | | | | [address] | | | | | | [phone] | | | | | | | | +--------+ + + + + | 02/09/ | Office | Neurology | Dhara, | | | 2019 | Visit | | [address] | | | | | | [address] [place], | | | | | | [place] [address] | | | | | | [phone] | | | | | | | | +--------+ + + + + documented as of this encounter Procedures + +--------+ + + + | Procedure Name | Priori | Date/Time | Associated Diagnosis | Comments | | | ty | | | | + +--------+ + + + | VITAMIN B12+FOLATE | Routin | 10/24/2016 | | Results for this | | | e | 8:30 AM | | procedure are in the | | | | PST | | results section. | + +--------+ + + + | IRON AND IRON | Routin | 10/24/2016 | | Results for this | | BINDING CAPACITY | e | 8:30 AM | | procedure are in the | | | | PST | | results section. | + +--------+ + + + | FERRITIN | Routin | 10/24/2016 | | Results for this | | | e | 8:30 AM | | procedure are in the | | | | PST | | results section. | + +--------+ + + + documented in this encounter Results Vitamin B-12 and Folate (10/24/2016 8:30 AM PST) + +-------+ + + + | Component | Value | Ref Range | Performed | Pathologist | | | | | At | Signature | + +-------+ + + + | VITAMIN | 362 | 211 - 911 pg/mL | EXTERNAL | | | B-12 | | | LAB | | + +-------+ + + + | FOLATE | 25 | >=5.4 ng/mL | EXTERNAL | | | | | | LAB | | + +-------+ + + + + + | Specimen | + + | | + + + +---------+ + + | Performing | Address | City/State/Zipcode | Phone Number | | Organization | | | | + +---------+ + + | EXTERNAL LAB | | | | + +---------+ + + Ferritin (10/24/2016 8:30 AM PST) + +-------+ + + + | Component | Value | Ref Range | Performed | Pathologist | | | | | At | Signature | + +-------+ + + + | Ferritin, | 19.4 | 6.2 - 137.0 | EXTERNAL | | | External | | ng/mL | LAB | | + +-------+ + + + + + | Specimen | + + | | + + + +---------+ + + | Performing | Address | City/State/Zipcode | Phone Number | | Organization | | | | + +---------+ + + | EXTERNAL LAB | | | | + +---------+ + + Iron and Iron Binding Capacity (10/24/2016 8:30 AM PST) + +-------+ + + + | Component | Value | Ref Range | Performed | Pathologist | | | | | At | Signature | + +-------+ + + + | Iron | 37 | 35 - 150 ug/dL | EXTERNAL | | | | | | LAB | | + +-------+ + + + | TIBC | 350 | 250 - 450 ug/dL | EXTERNAL | | | | | | LAB | | + +-------+ + + + | Iron | 11 | 15 - 50 % | EXTERNAL | | | Saturation | | | LAB | | + [...]
--- OUTSIDE RECORDS SUMMARY | ~2019-09-30 | XMS | Encounter Summary ---
Demographics + + + | Address | [address] | | | [place] [address] | + + + | Home Phone | | + + + | Preferred Language | Unknown | + + + | Marital Status | Single | + + + | Adventism Affiliation | Unknown | + + + | Race | Unknown | + + + | Ethnic Group | Unknown | + + + Author + + + | Author | [facility] | | | and [place] | + + + | Organization | [facility] | | | [...] Providers + +------+ + | Care Manager Front Office Name | Role | Phone | + +------+ + PCP | Unavailable | + +------+ + Encounter Details +--------+ + + + + | Date | Type | Department | Care Team | Description | +--------+ + + + + | [facility] | Denise Mcgregor | | | 2017 | Encounter | [facility] | G, MICROARRAY SPECIALIST [address] | | | | | MEDICAL CLIN[facility] [address] | [facility] [place] | | | | | [address] [facility], | [address] | | | | | [place] [address] | [phone] | | | | | [phone] | | | +--------+ + + + [...] | | | | | [place] [address] | | | | | | [phone] | | | | | | | | +--------+ + + + + | 10/30/ | Office | Primary Care | Erika Ernst, | | | 2019 | Visit | | DO [address] | | | | | | [place] [address] | | | | | | [phone] | | | | | | | [...] [place] | | | | | | [address] | | | | | | [phone] | | | | | | | | +--------+ + + + + | 02/09/ | Office | Neurology | Dhara, | | | 2020 | Visit | | [address] | | | | | | [address] [place], | | | | | | [place] [address] | | | | | | [phone] | | | | | | | | +--------+ + + + + documented as of this encounter Visit Diagnoses Not on filedocumented in this encounter"
--- OUTSIDE RECORDS SUMMARY | ~2019-09-30 | XMS | Encounter Summary ---
Demographics + + + | Address | [address] | | | [place] [address] | + + + | Home Phone [...] + | Author | [facility] | | | and [place] | + + + | Organization | [facility] | | | and [...] Team Providers + +------+ + | Care Pattern Room Attendant Name | Role | Phone | + +------+ + | Erika Ernst DO | PCP | | + +------+ + Reason for Visit +--------+ + | Reason | Comments | +--------+ + | Other | | +--------+ + Encounter Details +--------+ + + + + | Date | Type | Department | Care Team | Description | +--------+ + + + + | 03/05/ | Telephone | [place] [facility] | Keith Ernstleslie Salter, | Other | | 2018 | | [facility] | DO [address] | | | | | MEDICAL CLINIC [address] | [place] [address] | | | | | [address] [place], | [phone] | | | | | [place] [address] | | | | | | [phone] | | | +--------+ + + + [...] | 2018 | Visit | | [place] [address] [place] [address] | | | | | | [place] [address] | | | | | | [phone] | | | | | | | | +--------+ + + + + | 10/30/ | Office | Primary Care | Erika Ernst, | | | 2019 | Visit | | DO [address] | | | | | | [place] [address] | | | | | | [phone] | | | | | | | [...] | | | | | [place], [place] | | | | | | [address] | | | | | | [phone] | | | | | | | | +--------+ + + + + | 02/09/ | Office | Neurology | Dhara, | | | 2019 | Visit | | [address] | | | | | | [address] [place], | | | | | | [place] [address] | | | | | | [phone] | | | | | | | | +--------+ + + + + documented as of this encounter Visit Diagnoses Not on filedocumented in this encounter"
--- OUTSIDE RECORDS SUMMARY | ~2019-09-30 | XMS | Encounter Summary ---
Demographics + + + | Address | [address] | | | [place] [address] | + + + | Home Phone | | + + + | Preferred Language | Unknown | + + + | Marital Status | Single | + + + | Lutheran Affiliation | Unknown | + + + [...] Team Providers + +------+ + | Care Professional Wrestler Name | Role | Phone | + +------+ + PCP | Unavailable | + +------+ + Encounter Details +--------+ + + + + | Date | Type | Department | Care Team | Description | +--------+ + + + + | 03/23/ | [facility] | [place] [facility] | Erika Ernst, | | | 2016 | Encounter | [facility] | DO [address] | | | | | MEDICAL CLINIC [address] | [place] [address] | | | | | [address] [place], | [phone] | | | | | [place] [address] | | | | | | [phone] | | | +--------+ + + + [...] | | | | | [place] [address] | | | | | | [phone] | | | | | | | | +--------+ + + + + | 10/30/ | Office | Primary Care | Erika Ernst, | | | 2019 | Visit | | DO [address] | | | | | | [place] [address] | | | | | | [phone] | | | | | | | [...] [place] | | | | | | [address] | | | | | | [phone] | | | | | | | | +--------+ + + + + | 02/09/ | Office | Neurology | Dhara, | | | 2019 | Visit | | [address] | | | | | [address] [place], | | | | | | [place] [address] | | | | | | [phone] | | | | | | | | +--------+ + + + + documented as of this encounter Visit Diagnoses Not on filedocumented in this encounter"
--- OUTSIDE RECORDS SUMMARY | ~2019-09-30 | XMS | Encounter Summary ---
Demographics + + + | Address | [address] | | | [place] [address] | + + + | Home Phone [...] Team Providers + +------+ + | Care [place] Name | Role | Phone | + +------+ + PCP | Unavailable | + +------+ + Encounter Details +--------+ + + + + | Date | Type | Department | Care Team | Description | +--------+ + + + + | 10/11/ | [facility] | Spenser Roberts NP | | | 2014 | Encounter | [facility] | [address], | | | | | MEDICAL CLIN[address] | [place] [address] | | | | | [facility]TH [facility], | [phone] | | | | | [place] [address] | | | | | | [phone] | | | +--------+ + + + [...] | | | | | [place] [address] | | | | | | [phone] | | | | | | | | +--------+ + + + + | 10/30/ | Office | Primary Care | Erika Ernst, | | | 2019 | Visit | | DO [address] | | | | | | [place] [address] | | | | | | [phone] | | | | | | | [...] [place] | | | | | | [address] | | | | | | [phone] | | | | | | | | +--------+ + + + + | 02/09/ | Office | Neurology | Dhara, | | | 2020 | Visit | | [address] | | | | [address] [place], | | | | | | [place] [address] | | | | | | [phone] | | | | | | | | +--------+ + + + + documented as of this encounter Visit Diagnoses Not on filedocumented in this encounter"
--- OUTSIDE RECORDS SUMMARY | ~2019-09-30 | XMS | Encounter Summary ---
Demographics + + + | Address | [address] | | | [place] [address] | + + + | Home Phone [...] Team Providers + +------+ + | Care Photograph Tinter Name | Role | Phone | + +------+ + PCP | Unavailable | + +------+ + Encounter Details +--------+ + + + + | Date | Type | Department | Care Team | Description | +--------+ + + + + | 10/27/ | Hospital | [facility] | Camille Bush | | | 2016 | Encounter | [facility] | [address] | | | | | [facility] [address] | [facility], | | | | | 4TH [facility], | [place] [address] | | | | | [place] [address] | [phone] | | | | | [phone] | | | +--------+ + + + [...] | | | | | [place] [address] | | | | | | [phone] | | | | | | | | +--------+ + + + + | 10/30/ | Office | Primary Care | Erika Ernst, | | | 2019 | Visit | | DO [address] | | | | | | [place] [address] | | | | | | [phone] | | | | | | | [...] [place] | | | | | | [address] | | | | | | [phone] | | | | | | | | +--------+ + + + + | 02/09/ | Office | Neurology | Dhara, | | | 2019 | Visit | | [address] | | | | | [address] [place], | | | | | | [place] [address] | | | | | | [phone] | | | | | | | | +--------+ + + + + documented as of this encounter Visit Diagnoses Not on filedocumented in this encounter"
--- OUTSIDE RECORDS SUMMARY | ~2019-09-30 | XMS | Encounter Summary ---
Demographics + + + | Address | [address] | | | [place] [address] | + + + | Home Phone | | + + + | Preferred Language | Unknown | + + + | Marital Status | Single | + + + | Spiritism Affiliation | Unknown | + + + | Race | Unknown | + + + | Ethnic Group | Unknown | + + + Author + + + | Author | [facility] | | | and [place] | + + + | Organization | [facility] | | | [...] Team Providers + +------+ + | Care Accounts Collector Name | Role | Phone | + +------+ + | Erika Ernst DO | PCP | | + +------+ + Encounter Details +--------+ + + + + | Date | Type | Department | Care Team | Description | +--------+ + + + + | 05/17/ | Documentati | [place] [facility] | Nidhi Liang RN | | | 2019 | on | HOSPITAL NEUROLOGY | | | | | | CLINIC [address] | | | | | | [address] [place], | | | | | | [place] [address] | | | | | | [phone] | | | +--------+ + + + [...] documented as of this encounter Progress Notes Nidhi Liang RN - 05/17/2019 4:37 PM PDTLeft message for pt to come into office to garett ect date on 827 form, and intial it. (should be 01/15/18). Form is on my desk. Then form shou ld be given to Mariela./BAKARI Lewis 4 :39 PM PDTdocumented in this encounter Plan of Treatment +--------+ + + + + | Date | Type | Specialty | Care Team | Description | +--------+ + + + + | 10/01/ | Office | Primary Care | Erika Ernst, | | | 2018 | Visit | | [address] | | | | | | [place] [address] | | | | | | [phone] | | | | | | | | +--------+ + + + + | 10/30/ | Office | Primary Care | Erika Ernst, | | | 2019 | Visit | | DO [address] | | | | | | [place] [address] | | | | | | [phone] | | | | | | | | +--------+ + + + + | 11/07/ | Appointment | Nutrition | Janel Webster | | | 2019 | | | [place] | | +--------+ + + + + | 11/28/ | Office | Otolaryngology | Anthony Alvarado MD | | 2019 | Visit | | [address] | | | | | | [place] | | | | | | [address] | | | | | | [phone] | | | | | | | | +--------+ + + + + | 02/09/ | Office | Neurology | Dhara, | | | 2019 | Visit | | [address] | | | | | | [address] [place], | | | | | | [place] [address] | | | | | | [phone] | | | | | | | | +--------+ + + + + documented as of this encounter Visit Diagnoses Not on filedocumented in this encounter"
--- OUTSIDE RECORDS SUMMARY | ~2019-09-30 | XMS | Encounter Summary ---
Demographics + + + | Address | [address] | | | [place] [address] | + + + | Home Phone [...] Team Providers + +------+ + | Care Cash Office Worker Name | Role | Phone | + +------+ + | Erika Ernst DO | PCP | | + +------+ + Encounter Details +--------+ + + + + | Date | Type | Department | Care Team | Description | +--------+ + + + + | 09/26/ | Hospital | [place] [facility] | Erika Ernst, | Pain of upper | | 2019 | Encounter | Hospital Ultrasound | DO [address] | abdomen | | | | [address] [place] | [place] [address] | | | | | [place], [place] | [phone] | | | | | [address] | | | | | | [phone] | | | +--------+ + + + [...] 1-2 | 60 vial | 0 | 11/12/20 | | | mL nebulizer | treatments in | | | 19 | | | solution | nebulizer every [...] day | tablet | | 19 | | + + + +---------+ + + | Cetirizine HCl | Take by mouth. Once | | 0 | | | | (ZYRTEC PO) | a week | | | | | + + + +---------+ + + | ciprofloxacin | Take 1 tablet by | 14 | 0 | 09/24/20 | | | (CIPRO) 500 mg | mouth 2 times daily | tablet | | 19 | 9 | | tablet | for 7 days. | | | | | + [...] TID | 150 mL | 5 | // | | | (TARAN-IN-HEMANTH) 15 | | | | 19 | | | mg/mL SOLN | | | [...] + + + +---------+ + + | Fluticasone | Inhale into the | | 0 | | | | Furoate-Vilanterol | lungs. | | | | | | (BREO ELLIPTA IN) | | | | | | + + + +---------+ + + | levothyroxine | Take 50 mcg daily | 30 | 11 | 06/18/20 | | | (SYNTHROID) 50 mcg | | tablet | | 19 | | | tablet | | | [...] hours | tablet | | 19 | | | tablet | if needed for | | | | | | | dizziness | | | | | + + + +---------+ + + | prazosin | Take BID | 60 | 11 | 09/20/ | | | (MINIPRESS) 1 mg | | capsule | | 19 | | | capsule | | | | | | + + + +---------+ + + | traMADol (ULTRAM) | Take 50 mg by mouth | | 0 | | | | 50 mg tablet | every 6 hours as | | | | | | | needed. | | | [...] puffs into | 2 | 11 | 08/14/20 | | | (QVAR) 80 mcg/puff | [...] + +---------+ + + | | Take 5-10 mLs by | 120 mL | 0 | 08/08/20 | | | guaiFENesin-codeine | mouth every 6 hours | | | 19 | 9 | | (ROBITUSSIN AC) | as needed for Cough. | | | | | | 100-10 mg/5 mL | | | | | | | liquidIndications: | | | | | | | Moderate asthma with | | | | | | | exacerbation, | | | | | | | unspecified whether | | | | | | | persistent, Cough | | | | | | | productive of | | | | | | | purulent sputum | | | | | | + + + +---------+ + + | montelukast | take 1 tablet by | 30 | 11 | 08/07/20 | | | (SINGULAIR) 10 mg | mouth every evening | tablet | | 19 | 9 [...] + + + +---------+ + + | ramipril (ALTACE) | Take 1 capsule by | 60 | 11 | 09/18/20 | | | 5 mg | mouth 2 times daily. | capsule | | 19 | 9 | | capsuleIndications: | | | | | | | Hypertension, | | | | | | | unspecified type | | | | | | + + + +---------+ + + | SUMAtriptan | take 1 tablet by | 9 | 0 | 09/18/20 | | | (IMITREX) 100 mg | mouth AT ONSET OF | tablet | | 19 | 9 | | tablet | MIGRAINE may repeat | | | | | | | in 2 hours maximum | | | | | | | daily dose of 2 | | | | | | | daily | | | | | + + [...] | | | | | [place] [address] | | | | | | [phone] | | | | | | | | +--------+ + + + + | 10/30/ | Office | Primary Care | Erika Ernst, | | | 2019 | Visit | | DO [address] | | | | | | [place] [address] | | | | | | [phone] | | | | | | | [...] [place] | | | | | | [address] | | | | | | [phone] | | | | | | | | +--------+ + + + + | 02/09/ | Office | Neurology | Dhara, | | | 2019 | Visit | | [address] | | | | | [address] [place], | | | | | | [place] [address] | | | | | | [phone] | | | | | | | | +--------+ + + + + documented as of this encounter Procedures + +--------+ + + + | Procedure Name | Priori | Date/Time | Associated Diagnosis | Comments | | | ty | | | | + +--------+ + + + | US ABDOMEN LIMITED | Routin | 09/26/2019 | Pain of upper | Results for this | | | e | 8:39 AM | abdomen | procedure are in the | | | | PST | | results section. | + +--------+ + + + documented in this encounter Results US Abdomen Limited (09/26/2019 8:39 AM PST) + + | Specimen | + + | | + + + + + | Impressions | Performed At | + + + | 1. Normal gallbladder. 2. The common bile duct is upper normal. | [facility] | | If clinical concern for common duct obstructive process is present | | | recommend repeat ultrasound or CT to re-evaluate common duct diameter. | | | Dictated by: Chris Bedolla | | + + + + + + | Narrative | Performed At | + + + | EXAMINATION: US ABDOMEN LIMITED HISTORY: upper abd pain on | [facility] | | exam with some nausea intermittent COMPARISON STUDY: None | | | FINDINGS: Right liver length 17.2 cm. No focal hepatic lesions | | | seen. The liver echogenicity appears mildly increased. No | | | gallstones, wall thickening, or adjacent edema is seen. The common | | | duct is 6 mm. The visualized portion of the pancreas and right | | | kidney appear within normal limits. | | + + + + + | Procedure Note | + + | Yoni Grullon In - 09/26/2019 8:58 AM PST EXAMINATION:US ABDOMEN | | LIMITEDHISTORY:upper abd pain on exam with some nausea intermittentCOMPARISON | | STUDY:NoneFINDINGS:Right liver length 17.2 cm. No focal hepatic lesions seen. The | | liver echogenicity appears mildly increased.No gallstones, wall thickening, or adjacent | | edema is seen. The common duct is 6 mm. The visualized portion of the pancreas and | | right kidney appear within normal limits.IMPRESSION: 1. Normal gallbladder.2. The common | | bile duct is upper normal. If clinical concern for common duct obstructive process is | | present recommend repeat ultrasound or CT to re-evaluate common duct diameter.Dictated | | by: Chris Bedolla | |FINDINGS: | |Right liver length 17.2 cm. No focal hepatic lesions seen. The liver echogenicity appears mildly increased. | | | |No gallstones, wall thickening, or adjacent edema is seen. The common duct is 6 mm. The v isualized portion of the pancreas and right kidney appear within normal limits. | | | |IMPRESSION: | |1. Normal gallbladder. | |2. The common bile duct is upper normal. If clinical concern for common duct obstructive p rocess is present recommend repeat ultrasound or CT to re-evaluate common duct diameter. | | | | | | | |Dictated by: [...] + | Diagnosis | + + | Pain of upper abdomen Abdominal pain, other specified site | + + documented in this encounter"
--- OUTSIDE RECORDS SUMMARY | ~2019-09-30 | XMS | Encounter Summary ---
Demographics + + + | Address | [address] | | | [place] [address] | + + + | Home Phone | | + + + | Preferred Language | Unknown | + + + | Marital Status | Single | + + + | Taoism Affiliation | Unknown | + + + | Race | Unknown | + + + | Ethnic Group | Unknown | + + + Author + + + | Author | [facility] | | | and [place] | + + + | Organization | [facility] | | [...] Team Providers + +------+ + | Care Wire Preparation Machine Tender Name | Role | Phone | + +------+ + | Erika Ernst DO | PCP | | + +------+ + Reason for Visit + + + | Reason | Comments | + + + | Blood Pressure | | + + + Encounter Details +--------+ + + + + | Date | Type | Department | Care Team | Description | +--------+ + + + + | 09/02/ | Telephone | [place] [facility] | Keith Ernsta Joie, | Blood Pressure | | 2019 | | [facility] | DO [address] | | | | | MEDICAL CLIN[address] | [place] [address] | | | | | [address] [place], | [phone] | | | | | [place] [address] | | | | | | [phone] | | | +--------+ + + + [...] Visit | | DO [address] [place] | | | | | | [place] [address] | | | | | | [phone] | | | | | | | | +--------+ + + + + | 10/30/ | Office | Primary Care | Erika Ernst, | | | 2019 | Visit | | DO [address] [place] [address] | | | | | | [place] [address] | | | | | | [phone] | | | | | | | [...] [place] | | | | | | [address] | | | | | | [phone] | | | | | | | | +--------+ + + + + | 02/09/ | Office | Neurology | Dhara, | | | 2019 | Visit | | [address] | | | | | [address] [place], | | | | | | [place] [address] | | | | | | [phone] | | | | | | | | +--------+ + + + + documented as of this encounter Visit Diagnoses Not on filedocumented in this encounter"
--- OUTSIDE RECORDS SUMMARY | ~2019-09-30 | XMS | Encounter Summary ---
Demographics + + + | Address | [address] | | | [place] [address] | + + + | Home Phone | | + + + | Preferred Language | Unknown | + + + | Marital Status | Single | + + + | Catholic Affiliation | Unknown | + + + | Race | Unknown | + + + | Ethnic Group | Unknown | + + + Author + + + | Author | [facility] | | | and [place] | + + + | Organization | [facility] | | | and [place] | + + + | Address | Unknown | + + + | Phone | Unavailable | + + + Support + + +---------+ + | Name | Relationship | Address | Phone | + + +---------+ + | Bhavna Buck Boss | ECON | Unknown | | + + +---------+ + Care Team Providers + +------+ + | Care Manager Nicu Name | Role | Phone | + +------+ + | Erika Ernst DO | PCP | | + +------+ + Reason for Visit + + + | Reason | Comments | + + + | Post-op Exam | EP WC 4m PO R Wrist (DOS: 03/20/19) and R Hand Sprain (DOI: | | | 06/13/19) | + + + Evaluate & Treat (Routine) + + + + + + + | Status | Reason | Specialty | Diagnoses / | Referred By | Referred To | | | | | Procedures | Contact | Contact | + + + + + + + | Authorized | Specialty | Orthopedic | Diagnoses | Klever, | Verónica [facility] | | | Services | Surgery | Sprain of | Erika A, DO | Orthopedic | | | Required | | right hand, | [address] | [address] | | | | | subsequent | [place], | [place] | | | | | encounter | [place] [address] | [place], [place] | | | | | Procedures | Phone: | [address] | | | | | [place] | [phone] | Phone: | | | | | | Fax: | [phone] | | | | | | [phone] | Fax: | | | | | | | [phone] | + + + + + + + Encounter Details +--------+---------+ + + + | Date | Type | Department | Care Team | Description | +--------+---------+ + + + | 07/02/ | Office | [place] [facility] | Inocencio Noriega | Right wrist pain | | 2019 | Visit | [facility] | MD Malcolm [address] | (Primary Dx); S/P | | | | [address] [place] [address] | [address] [place] | right ECU | | | | [place] | [place] [address] | tenosynovectomy on | | | | [address] | [phone] | 03/20/19 | | | | [phone] | | | +--------+---------+ + + + [...] + | Blood Pressure | 130/84 | 07/02/2019 5:03 PM | | | | | PDT | | + + + + + | Pulse | 68 | 07/02/2019 5:03 PM | | | | | PDT | | + + + + + | Temperature | 36.6 C (97.8 F) | 07/02/2019 5:03 PM | | | | | PDT | | + + + + + | Respiratory Rate | 18 | 07/02/2019 5:03 PM | | | | | PDT | | + + + + + | Oxygen Saturation | 99% | 07/02/2019 5:03 PM | | | | | PDT [...] + documented in this encounter Progress Notes Inocencio Noriega MD - 07/02/2019 5:15 PM PDT Date of Service: 07/02/2019 Provider: Inocencio Noriega MD Pt. Name/Age/: Andrea Suh 29 y.o. 1990 Date of Evalutaion: 07/02/2019 FOLLOW UP HAND SURGERY VISIT CHIEF COMPLAINT: Chief Complaint Patient presents with Post-op Exam EP WC 4m PO R Wrist (DOS: 03/20/19) and R Hand Sprain (DOI: 06/13/19) HISTORY OF PRESENT ILLNESS Andrea Suh is a 29 y.o. year old right hand dominant female that follows up in the office today for her right wrist. She is now 4 months after right wrist ECU tenosynovectomy . She still reports some mild pain at the dorsum of the wrist. She is currently in therapy with making making some progress. She also reported a fall where she landed on the small f jonah. That injury is nonpainful anymore. She mostly has some mild continued dorsal ulnar wrist pain. Finally she reports some intermittent numbness in the small finger and ring fin nisha. Past Medical History: Diagnosis Date Allergic rhinitis Anemia Asthma Dysmenorrhea Hypertension Hypothyroid Iron deficiency Obesity ALVAREZ (obstructive sleep apnea) Periodontal disease, unspecified TMJ pain dysfunction syndrome Past Surgical History: Procedure Laterality Date EYE SURGERY HAND TENDON SURGERY Right 03/20/2019 Procedure: REPAIR E.C.U. Tendon; Surgeon: Inocencio Noriega MD; Location: [facility] SURGERY RIGHT KIDNER PROCEDURE 01/20/2016 Surgeon: Fani Mahajan MD; Location: [facility] TENDON RELEASE TONSILLECTOMY WISDOM TOOTH EXTRACTION Family History Problem Relation Age of Onset Other (see comment) Mother gallbladder disease Diabetes Mother Heart disease Mother Hypertension Father Other (see comment) Father arrhymthmia Breast cancer Sister Breast cancer Maternal Grandmother Heart attack Maternal Aunt [place] Hypertension Maternal Uncle Social History Tobacco Use Smoking status: Never Smoker Smokeless tobacco: Never Used Substance Use Topics Alcohol use: No Alcohol/week: 0.0 oz Frequency: Never Binge frequency: Never Drug use: No ALLERGIES Allergies Allergen Reactions Latex Rash Lexapro [Escitalopram] Palpitations Deblitane [Norethindrone] Hydrocodone Hives Uncoded Nonscreenable Allergen Other (See Comments) Other reaction(s): Proclivity to C-diff with certain antibiotics Adhesive & Tape Rash REVIEW OF SYSTEMS Review of Systems Respiratory: Negative. Cardiovascular: Negative. Musculoskeletal: Positive for joint pain. Neurological: Positive for tingling. PHYSICAL EXAM Vitals: 07/02/19 1703 BP: 130/84 Pulse: 68 Resp: 18 Temp: 36.6 C (97.8 F) PainSc: 6 PainLoc: Hand No acute distress. Alert and oriented to time, person and place. Regular rate and rhythm by radial pulse examination Right upper extremity: Examination of the right wrist reveals a healed dorsal incision. No swelling, no erythema or any signs of infection. No subluxation of the ECU tendon with pronation and supination. No tenderness to palpation over the ECU sheath. Mild stiffness of the wrist with flexion a nd extension. The patient is able to composite flex to the distal palmar crease and has ful l extension of all fingers. Sensation is intact in the radial and ulnar side of all fingers . All fingers are warm and well-perfused. Negative Phalen/Alexander's. Negative Tinel over the cubital tunnel. Negative Tinel over the TN's canal. ASSESSMENT AND PLAN Andrea Shu is a 29 y.o. year old right hand dominant female who is 4 months after r ight ECU tenosynovectomy. PLAN: Andrea Suh seen in the office today for her right wrist. Her wrist exam is fairly benign with some mild tenderness over the distal ECU at the level of the wrist. She has gre at range of motion. No pain at the small finger where she had the fall. She does report so me intermittent numbness in the ulnar nerve distribution but has no provocative maneuvers fo r Guyon's canal or cubital tunnel syndrome. Per her report Dr. Nichole is doing a nerve conduct ion study. I'd like to advance her work status to no restrictions. She'll follow up with dominick doss in 6 weeks after completing her therapy for reevaluation of her wrist pain after returning to full duty. Electronically signed by: Inocencio Noriega MD 07/02/2019 17:16 CC: DO Klever Haines Debra A, DO Note: Part of this report was transcribed using voice recognition software. Every effort wa s made to ensure accuracy. However, inadvertent computerized faculty administrator errors may be pre sent. This documentation prepared by bowen Dai scribe. All aspects of this chart re viewed for accuracy and content by Inocencio Noriega MD at the date and time of service. documented in thi s encounter Plan of Treatment +--------+ + + + + | Date | Type | Specialty | Care Team | Description | +--------+ + + + + | 10/01/ | Office | Primary Care | Erika Ernst, | | | 2018 | Visit | | DO [address] [place] | | | | | | [place] [address] | | | | | | [phone] | | | | | | | | +--------+ + + + + | 10/30/ | Office | Primary Care | Erika Ernst, | | | 2019 | Visit | | DO [address] [place] | | | | | | [place] [address] | | | | | | [phone] | | | | | | | [...] [place] | | | | | | [address] | | | | | | [phone] | | | | | | | | +--------+ + + + + | 02/09/ | Office | Neurology | Dhara, | | | 2019 | Visit | | DWANIE Ross [address] | | [address] [place], | | | | | | [place] [address] | | | | | | [phone] | | | | | | | | +--------+ + + + + + + +--------+ + + | Name | Type | Priori | Associated Diagnoses | Order Schedule | | | | ty | | | + + +--------+ + + | AMB Referral to CC | Outpatient | Routin | Sprain of right | Ordered: 06/18/2019 | | [facility] | Referral | e | hand, subsequent | | | | | | encounter | | + + +--------+ + + documented as of this encounter Visit Diagnoses + + | Diagnosis | + + | Right wrist pain - Primary Pain in joint, forearm | + + | S/P right ECU tenosynovectomy on 03/20/19 | + + documented in this encounter"
--- OUTSIDE RECORDS SUMMARY | ~2019-09-30 | XMS | Encounter Summary ---
Demographics + + + | Address | [address] | | | [place] [address] | + + + | Home Phone | | + + + | Preferred Language | Unknown | + + + | Marital Status | Single | + + + | Rastafari Affiliation | Unknown | + + + | Race | Unknown | + + + | Ethnic Group | Unknown | + + + Author + + + | Author | [facility] | | | and [place] | + + + | Organization | [facility] | | [...] Team Providers + +------+ + | Care X Ray Equipment Tester Name | Role | Phone | + [...] | | | [place] | [address] | | | | | [address] | | | | | | [phone] | | | +--------+ + + + [...] | | | | | [place] [address] | | | | | | [phone] | | | | | | | | +--------+ + + + + | 10/30/ | Office | Primary Care | Erika Ernst, | | | 2019 | Visit | | DO [address] [place] | | | | | | [place] [address] | | | | | | [phone] | | | | | | | [...] [place] | | | | | | [address] | | | | | | [phone] | | | | | | | | +--------+ + + + + | 02/09/ | Office | Neurology | Dhara, | | | 2019 | Visit | | DWAINE Ross [address] [place], | | | | | | [place] [address] | | | | | | [phone] | | | | | | | | +--------+ + + + + documented as of this encounter Visit Diagnoses Not on filedocumented in this encounter"
--- OUTSIDE RECORDS SUMMARY | ~2019-09-30 | XMS | Encounter Summary ---
Demographics + + + | Address | [address] | | | [place] [address] | + + + | Home Phone | | + + + | Preferred Language | Unknown | + + + | Marital Status | Single | + + + | Tenriism Affiliation | Unknown | + + + [...] Team Providers + +------+ + | Care Tooth Grinder Name | Role | Phone | + +------+ + | Erika Ernst DO | PCP | | + +------+ + Reason for Visit + + + | Reason | Comments | + + + | Medication Problem | pharmacy issue | + + + Encounter Details +--------+ + + + + | Date | Type | Department | Care Team | Description | +--------+ + + + + | 12/25/ | Telephone | [facility] [facility] | Emily Mittal DPM | Medication Problem | | 2019 | | [facility] | [address] [place] | (pharmacy issue) | | | | [address] | [place] | | | | | [place] | [id number] | | | | | [address] | | | | | | [phone] | | | +--------+ + + + [...] | Visit | | DO [address] | | | | | | [place] [address] | | | | | | [phone] | | | | | | | | +--------+ + + + + | 10/30/ | Office | Primary Care | Erika Ernst, | | | 2019 | Visit | | DO [address] [facility] [address] | | | | | | [place] [address] | | | | | | [phone] | | | | | | | [...] [place] | | | | | | [address] | | | | | | [phone] | | | | | | | | +--------+ + + + + | 02/09/ | Office | Neurology | Dhara, | | | 2019 | Visit | | DWAINE Ross [address] [place], | | | | | | [place] [address] | | | | | | [phone] | | | | | | | | +--------+ + + + + documented as of this encounter Visit Diagnoses Not on filedocumented in this encounter"
--- OUTSIDE RECORDS SUMMARY | ~2019-09-30 | XMS | Encounter Summary ---
Demographics + + + | Address | [address] | | | [place] [address] | + + + | Home Phone [...] Team Providers + +------+ + | Care Welding Machine Operator Arc Name | Role | Phone | + [...] | +--------+ + + + + | 08/22/ | Telephone | [place] [facility] | Erika Ernst, | Medication Question | | 2019 | | [facility] | DO [address] | | | | | [facility] | [place] [address] | | | | [address] [facility], | [phone] | | | | | [place] [address] | | | | | | [phone] | | | +--------+ + + + [...] | | | | | [place] [address] | | | | | | [phone] | | | | | | | | +--------+ + + + + | 10/30/ | Office | Primary Care | Erika Ernst, | | | 2019 | Visit | | DO [address] [place] | | | | | | [place] [address] | | | | | | [phone] | | | | | | | | +--------+ + + + + | 11/07/ | Appointment | Nutrition | Janle Webster | | | 2019 | | | [place] | | +--------+ + + + + | 11/28/ | Office | Otolaryngology | Anthony Alvarado MD | | 2019 | Visit | | [address] | | | | | | [place], [place] | | | | | | [address] | | | | | | [phone] | | | | | | | | +--------+ + + + + | 02/09/ | Office | Neurology | Dhara, | | | 2020 | Visit | | DWAINE Ross [address] [place], | | | | | | [place] [address] | | | | | | [phone] | | | | | | | | +--------+ + + + + documented as of this encounter Visit Diagnoses Not on filedocumented in this encounter"
--- OUTSIDE RECORDS SUMMARY | ~2019-09-30 | XMS | Encounter Summary ---
Demographics + + + | Address | [address] | | | [place] [address] | + + + | Home Phone | | + + + | Preferred Language | Unknown | + + + | Marital Status | Single | + + + | Holiness Affiliation | Unknown | + + + [...] Team Providers + +------+ + | Care Account Planner Name | Role | Phone | + +------+ + | Erika Ernst DO | PCP | | + +------+ + Reason for Visit + + + | Reason | Comments | + + + | Cast Problem | | + + + Encounter Details +--------+ + + + + | Date | Type | Department | Care Team | Description | +--------+ + + + + | 04/26/ | Emergency | [facility] [facility] | Denis Araya, | Problem with | | 2018 | | [facility] | [facility]ER [address] | immobilizing cast | | | | CENTER [address] | [place] | (Primary Dx) | | | | [place] | [address] | | | | | [address] | | | | | | [phone] | | | +--------+ + + + [...] + + + | Blood Pressure | 147/96 | 04/26/2019 9:45 AM | | | | | PDT | | + + + + + | Pulse | 71 | 04/26/2019 9:45 AM | | | | | PDT | | + + + + + | Temperature | 36.2 C (97.2 F) | 04/26/2019 9:45 AM | | | | | PDT | | + + + + + | Respiratory Rate | 18 | 04/26/2019 9:45 AM | | | | | PDT | | + + + + + | Oxygen Saturation | 99% | 04/26/2019 9:45 AM | RA | | | | PDT | | + + + + + | Inhaled Oxygen | - | - | | | Concentration | | | | + + + + + | Weight | 166.5 kg (367 lb) | 04/26/2019 9:45 AM | | | | | PDT | | + + + + + | Height | 177.8 cm (5' 10") | 04/26/2019 9:45 AM | | | | | PDT | | + + + + + | Body Mass Index | 52.66 | 04/26/2019 9:45 AM | | | | | PDT | | + + + + + documented in this encounter Discharge Instructions Instructions Denis Araya NP - 04/26/2019Continue medications as prescribed Remain in sling and cast until your appointment with orthopedics Keep your orthopedic appointment on 04/30/19. AttachmentsThe following attachments cannot be sent through Care Everywhere.Zohra Marrero Instructions (Italian)documented in this encounter Medications at Time of [...] | 04/12/20 | | | (VITAMIN D3) 33458 | mouth Once a week | tablet [...] | | | | | [place] [address] | | | | | | [phone] | | | | | | | | +--------+ + + + + | 10/30/ | Office | Primary Care | Erika Ernst, | | | 2019 | Visit | | DO [address] [place] | | | | | | [place] [address] | | | | | | [phone] | | | | | | | [...] [place] | | | | | | [address] | | | | | | [phone] | | | | | | | | +--------+ + + + + | 02/09/ | Office | Neurology | Dhara, | | | 2019 | Visit | | DWAINE Ross [address] [place], | | | | | | [place] [address] | | | | | | [phone] | | | | | | | | +--------+ + + + + + +------+--------+ + + | Name | Type | Priori | Associated Diagnoses | Date/Time | | | | ty | | | + +------+--------+ + + | ED INFORMATION | YARITZA | Routin | | 04/26/2019 9:42 AM | | EXCHANGE | | e | | PDT | + +------+--------+ + + documented as of this encounter Visit Diagnoses + + | Diagnosis | + + | Problem with immobilizing cast - Primary | + + documented in this encounter
--- OUTSIDE RECORDS SUMMARY | ~2019-09-30 | XMS | Encounter Summary ---
Demographics + + + | Address | [address] | | | [place] [address] | + + + | Home Phone [...] Providers + +------+ + | Care Home Care Attendant Name | Role | Phone | + +------+ + | Erika Ernst DO | PCP | | + +------+ + Reason for Visit Evaluate & Treat (Urgent) +--------+--------+ + + + + | Status | Reason | Specialty | Diagnoses / | Referred By | Referred To | | | | | Procedures | Contact | Contact | +--------+--------+ + + + + | Closed | | Rehabilitatio | Diagnoses | Klever, | [facility] | | | | n | Pain in | Erika A, DO | Therapy Pt | | | | | right knee | [address] | [address] | | | | | Procedures | [place], | [place], | | | | | [place] TREAT | [place] [address] | [place] [address] | | | | | | Phone: | Phone: | | | | | | [phone] | [phone] | | | | | | Fax: | Fax: | | | | | | [phone] | [phone] | +--------+--------+ + + + + Encounter Details +--------+ + + + + | Date | Type | Department | Care Team | Description | +--------+ + + + + | 01/15/ | Hospital | [place] [facility] | Erika Ernst, | Acute pain of right | | 2019 | Encounter | HOSPITAL [facility] PT | DO [address] [place] | knee (Primary Dx) | | | | [address] [place] | [place] [address] | | | | | [place], [place] | [phone] | | | | | [address] | | | | | | [phone] | Julia Peña, | | | | | | DIRECTOR [employer] | | +--------+ + + + + [...] | 11/26/19 | | | (VITAMIN D3) 13404 | mouth Once a week | tablet [...] + + + +---------+ + + | mupirocin | apply to affected | 22 g | 1 | 12/22/19 | | | (BACTROBAN) 2% | area 3 times per day | | | 19 | 9 | | ointmentIndications: | for the next 10 | | | | | | Excoriation of | days. | | | | | | forearm, right, | | | | | | | initial encounter | | | | | | [...] documented as of this encounter Progress Notes Julia Peña, DIRECTOR [employer] - 01/15/2019 10:36 AM PDTFormatting of this note might be differen t from the original. [facility] [address] [place] [address] Physical Therapy Daily Treatment Note Date: 01/15/2019 Patient Information Patient Name: Andrea Suh Date of : 1990 Age: 28 y.o. Encounter Diagnoses Code Name Primary? M25.561 Acute pain of right knee Yes Date of Onset: 10/15/2018 Referring Provider: Erika Ernst DO Objective Pain Assessment: Pain Rating Pre Assessment: 0 Pain Rating Post Assessment: 0 Pain/Comfort Presence Of Pain: denies pain/discomfort Today's Treatment Patient Name: Andrea Suh/: 1990/ Start Time: 827 Stop time: 911 Duration: 44 minutes Timed Treatment Codes: 44 minutes # of PT Visits to Date: 3 Visit Summary: S:R knee is feeling good today. A:pt tolerated TE well today, difficult to d o standing SL Ex with WB on L foot due to ankle injury and pain. Pt was able to return demo of current HEP. Next Visit Information: Review HEP. Progress Hip/quad/HS loading for home program. Patient/Caregiver Education Learner: Patient Readiness: Acceptance Method: Explanation, Demonstration, Handout Response: Verbalizes Understanding, Demonstrated Understanding Comment: Physical therapy HEP, Therapy Interventions HEP: HEP: SLR in supine, sidelying, prone; sidelying clams; sitting HS curl with blue thera band; SLS. Ongoing: Wall sits [id number] holds, Bridging 3 x 10 reps, Side steps GTB at ank les 3 x 30. PT INTERVENTION 1: TE (45 mins): recumbent bike 70 thomas, 10 mins; SLR in supine, sidelyin g, prone 10x each; sidelying clams 10x each side, Seated marching 20reps B. STanding Hip ext 10 reps (discontined due to ankle pain in L) Assessment Rehabilitation potential: Patient demonstrates fair potential to achieve established goals to address the documented impairments by participating in skilled physical therapy services. Goals: Patient Reported Outcome Goals Patient Specific Functional Scale Goal 1: Hiking on even and uneven surfaces Patient Specific Functional Scale Goal 1 Status: 4 Patient Specific Functional Scale Goal 1 Status Comment: Ongoing- pt limted by ankle and kn ee- reports approx 50% normal QuickDASH Goal: The pt will have increased functional use of her right hand indicated by a QuickDASH score of 15% with pain no greater than 2/10 with daily activities by discharge OP PT Goals Goal 1: Patient will demonstrate I with advanced HEP and no pain in order to improve functi onal outcomes with physical therapy. Goal 1 Status: Given HEP for hip and hamstring strengthening Goal 2: Patient will improve B hip strength to 4+/5 or greater Goal 2 Status: ongoing Goal 3: Patient will tolerate walking for 1 mile without taking breaks due to pain to retur n to previous level of activity. Electronically signed by: Julia Peña PTA, 01/15/2019 10:36 Patient Name: Andrea Suh/: 1990/ documented in th is encounter Plan of Treatment +--------+ + + + + | Date | Type | Specialty | Care Team | Description | +--------+ + + + + | 10/01/ | Office | Primary Care | Erika Ernst, | | | 2018 | Visit | | DO [address] [place] | | | | | | [place] [address] | | | | | | [phone] | | | | | | | | +--------+ + + + + | 10/30/ | Office | Primary Care | Erika Ernst, | | | 2019 | Visit | | DO [address] [place] | | | | | | [place] [address] | | | | | | [phone] | | | | | | | [...] [place] | | | | | | [address] | | | | | | [phone] | | | | | | | | +--------+ + + + + | 02/09/ | Office | Neurology | Dhara, | | | 2019 | Visit | | DWAINE Ross [address] [place], | | | | | | [place] [address] | | | | | | [phone] | | | | | | | | +--------+ + + + + documented as of this encounter Visit Diagnoses + + | Diagnosis | + + | Acute pain of right knee - Primary | + + documented in this encounter"
--- OUTSIDE RECORDS SUMMARY | ~2019-09-30 | XMS | Encounter Summary ---
Demographics + + + | Address | [address] | | | [place] [address] | + + + | Home Phone [...] Team Providers + +------+ + | Care Technical Service Specialist Name | Role | Phone | [...] [address] [place] | [place] [address] | | | | | [place], [place] | [phone] | | | | | [address] | | | | | | [phone] | | | +--------+ + + + [...] [place] | | | | | | [place] [address] | | | | | | [phone] | | | | | | | | +--------+ + + + + | 10/30/ | Office | Primary Care | Erika Ernst, | | | 2019 | Visit | | DO [address] [place] | | | | | | [place] [address] | | | | | | [phone] | | | | | | | [...] [place] | | | | | | [address] | | | | | | [phone] | | | | | | | | +--------+ + + + + | 02/09/ | Office | Neurology | Dhara, | | | 2019 | Visit | | DWAINE Ross [address] | [address] [place], | | | | | | [place] [address] | | | | | | [phone] | | | | | | | [...]
--- OUTSIDE RECORDS SUMMARY | ~2019-09-30 | XMS | Encounter Summary ---
Demographics + + + | Address | [address] | | | [place] [address] | + + + | Home Phone | | + + + | Preferred Language | Unknown | + + + | Marital Status | Single | + + + | Yarsanism Affiliation | Unknown | + + + | Race | Unknown | + + + | Ethnic Group | Unknown | + + + Author + + + | Author | [facility] | | | and [place] | + + + | Organization | [facility] | | | [...] Team Providers + +------+ + | Care Supply Person Name | Role | Phone | + [...] cyst | | 2019 | | [facility] | DO [address] | | | | | [facility] [address] | [place] [address] | | | | | [address] [place], | [phone] | | | | | [place] [address] | | | | | | [phone] | | | +--------+ + + + [...] | 2018 | Visit | | DO | | | | | | [place] [address] | | | | | | [phone] | | | | | | | | +--------+ + + + + | 10/30/ | Office | Primary Care | Erika Ernst, | | | 2019 | Visit | | DO [address] [place] | | | | | | [place] [address] | | | | | | [phone] | | | | | | | [...] [place] | | | | | | [address] | | | | | | [phone] | | | | | | | | +--------+ + + + + | 02/09/ | Office | Neurology | Dhara, | | | 2019 | Visit | | DWAINE Ross [address] | [address] [place], | | | | | | [place] [address] | | | | | | [phone] | | | | | | | [...]
--- OUTSIDE RECORDS SUMMARY | ~2019-09-30 | XMS | Encounter Summary ---
Demographics + + + | Address | [address] | | | [place] [address] | + + + | Home Phone [...] Team Providers + +------+ + | Care Shell Molder Name | Role | Phone | + +------+ + | Erika Ernst DO | PCP | | + +------+ + Encounter Details +--------+ + + + + | Date | Type | Department | Care Team | Description | +--------+ + + + + | 05/06/ | [facility] | [place] [facility] | Marvel, | Asthma, unspecified | | 2019 | Encounter | [facility] X[facility] [address] | [address] | asthma severity, | | | | [address] | [place] | unspecified whether | | | | [place] | [place] [address] | complicated, | | | | [address] | | unspecified whether | | | | [phone] | (Fax) | persistent | +--------+ + [...] | 04/12/20 | | | (VITAMIN D3) 21633 | mouth Once a week | tablet [...] | | | | | [place] [address] | | | | | | [phone] | | | | | | | | +--------+ + + + + | 10/30/ | Office | Primary Care | Erika Ernst, | | | 2019 | Visit | | DO [address] [place] | | | | | | [place] [address] | | | | | | [phone] | | | | | | | [...] [place] | | | | | | [address] | | | | | | [phone] | | | | | | | | +--------+ + + + + | 02/09/ | Office | Neurology | Dhara, | | | 2020 | Visit | | DWAINE Ross [address] | | | | | [address] [place], | | | | | | [place] [address] | | | | | | [phone] | | | | | | | [...]
--- OUTSIDE RECORDS SUMMARY | ~2019-09-30 | XMS | Encounter Summary ---
Demographics + + + | Address | [address] | | | [place] [address] | + + + | Home Phone [...] + + | Author | [facility] | | | and [place] | + + + | Organization | [facility] | | | [...] Team Providers + +------+ + | Care Pulper Tender Name | Role | Phone | [...] [facility] | DO [address] [place] | environmental | | | | [facility] | [facility] [place] [address] | allergies (Primary | | | | [address] [place], | [phone] | Dx); Nausea | | | | [place] [address] | | | | | | [phone] | | | +--------+---------+ + + + [...] daily. 1 Inhaler 11 Cholecalciferol (VITAMIN D3) 21208 units TABS Take 1 tablet by mouth [...] | | | | | [place] [address] | | | | | | [phone] | | | | | | | | +--------+ + + + + | 10/30/ | Office | Primary Care | Erika Ernst, | | | 2019 | Visit | | DO [address] [place] | | | | | | [place] [address] | | | | | | [phone] | | | | | | | [...] [place] | | | | | | [address] | | | | | | [phone] | | | | | | | | +--------+ + + + + | 02/09/ | Office | Neurology | Dhara, | | | 2019 | Visit | | DWAINE Ross [address] | | | | | [address] [place], | | | | | | [place] [address] | | | | | | [phone] | | | | | | | | +--------+ + + + + documented as of this encounter Results , Urine, Qual (05/16/2018 8:32 AM PDT) + + + + + + | Component | Value | Ref Range | Performed | Pathologist | | | | | At | Signature | + + + + + + | HCG SCREEN, | Negative | Negative | [place] | | | URINE | | | [facility] | | | [...] [place] [facility] | [address] | [place] [address] | [phone] | | [facility] | | | | | [facility] | | | | + + + + + documented in this encounter Visit Diagnoses + + | Diagnosis | + + | Asthma due to environmental allergies - Primary | + + | Nausea Nausea alone | + + documented in this encounter
--- OUTSIDE RECORDS SUMMARY | ~2019-09-30 | XMS | Encounter Summary ---
Demographics + + + | Address | [address] | | | [place] [address] | + + + | Home Phone | | + + + | Preferred Language | Unknown | + + + | Marital Status | Single | + + + | Judaism Affiliation | Unknown | + + + | Race | Unknown | + + + | Ethnic Group | Unknown | + + + Author + + + | Author | [facility] | | | and [place] | + + + | Organization | [facility] | | [...] Team Providers + +------+ + | Care Bee Tender Name | Role | Phone | + +------+ + | Erika Ernst DO | PCP | | + +------+ + Reason for Visit +--------+ + | Reason | Comments | +--------+ + | Other | FU from ED in [place] | +--------+ + Encounter Details +--------+ + + + + | Date | Type | Department | Care Team | Description | +--------+ + + + + | 08/16/ | Telephone | [place] [facility] | Inocencio Noriega | Other (FU from ED in | | 2018 | | [facility] | MD [address] | [place]) | | | | [address] | [address] | | | | | [place] | [place] [address] | | | | | [address] | [phone] | | | | | [phone] | | | +--------+ + + + [...] | | | | | [place] [address] | | | | | | [phone] | | | | | | | | +--------+ + + + + | 10/30/ | Office | Primary Care | Erika Ernst, | | | 2019 | Visit | | DO [address] | | | | | | [place] [address] | | | | | | [phone] | | | | | | | [...] [place] | | | | | | [address] | | | | | | [phone] | | | | | | | | +--------+ + + + + | 02/09/ | Office | Neurology | Dhara, | | | 2020 | Visit | | DWAINE Ross [address] | | | | | [address] [place], | | | | | | [place] [address] | | | | | | [phone] | | | | | | | | +--------+ + + + + documented as of this encounter Visit Diagnoses Not on filedocumented in this encounter"
--- OUTSIDE RECORDS SUMMARY | ~2019-09-30 | XMS | Encounter Summary ---
Demographics + + + | Address | [address] | | | [place] [address] | + + + | Home Phone [...] Team Providers + +------+ + | Care Deportation Officer Name | Role | Phone | + +------+ + | Erika Ernst DO | PCP | | + +------+ + Reason for Visit + + + | Reason | Comments | + + + | Temporomandibular | pain during and after physical therapy | | Joint Pain | | + + + Encounter Details +--------+---------+ + + + | Date | Type | Department | Care Team | Description | +--------+---------+ + + + | 02/06/ | Office | [place] [facility] | Alem Guerrero, | Bilateral | | 2019 | Visit | [facility] | MARKETING PRODUCTION MANAGER-WRAPPER COUNTER [address] | temporomandibular | | | | [facility] [address] | [address] [place] | joint pain (Primary | | | | [address] [place], | [place] [address] | Dx) | | | | [place] [address] | [phone] | | | | | [phone] | | | +--------+---------+ + + + [...] + + + | Blood Pressure | 119/86 | 02/06/2019 11:23 AM | | | | | PDT | | + + + + + | Pulse | 86 | 02/06/2019 11:23 AM | | | | | PDT | | + + + + + | Temperature | 36.7 C (98 F) | 02/06/2019 11:23 AM | | | | | PDT | | + + + + + | Respiratory Rate | 18 | 02/06/2019 11:23 AM | | | | | PDT | | + + + + + | Oxygen Saturation | 100% | 02/06/2019 11:23 AM | | | | | PDT | | + + + + + | Inhaled Oxygen | - | - | | | Concentration | | | | + + + + + | Weight | 171.9 kg (379 lb) | 02/06/2019 11:23 AM | | | | | PDT | | + + + + + | Height | 177.8 cm (5' 10") | 02/06/2019 11:23 AM | | | | | PDT | | + + + + + | Body Mass Index | 54.38 | 02/06/2019 11:23 AM | | | | | PDT | | + + + + + documented in this encounter Patient Instructions Patient Instructions Alem Guerrero APRN-DWAINE - 02/06/2019 11:05 AM PDTTake one tab 30-6 0 minutes prior to physical therapy for your TMJ Follow-up with Dr. Ernst as planned later this month documented in this encounter Progress Notes Alem Guerrero APRN-FNP - 02/06/2019 11:05 AM PDTFormatting of this note might be diffe rent from the original. Subjective: Patient ID: Andrea Suh is a 28 y.o. female. Chief Complaint Patient presents with Temporomandibular Joint Pain pain during and after physical therapy HPI Here today with complaints of jaw pain and tightness during physical therapy for her TMJ. S he says the last three session she has left in tears because of the pain. She saw Dr. Terry luna Monday and he suggested this might be beneficial, but did not order it. She sees Dr. Quinn epps at the end of the month and has two physical therapy sessions prior to that visit. Allergies Allergen Reactions Latex Rash Lexapro [Escitalopram] Palpitations Oxycodone Anaphylaxis and Shortness Of Breath Deblitane [Norethindrone] Hydrocodone Hives Uncoded Nonscreenable Allergen Other (See Comments) Other reaction(s): Proclivity to C-diff with certain antibiotics Adhesive & Tape Rash Patient Active Problem List Diagnosis Date Noted POA History of falling 01/16/2019 Unknown Acute pain of right knee 12/13/2018 Unknown Nasal obstruction 11/20/2018 Unknown Deviated nasal septum 11/20/2018 Unknown Non-seasonal allergic rhinitis due to pollen 11/16/2018 Unknown Chronic pain of both ears 10/09/2018 Unknown Chronic congestion of paranasal sinus 10/09/2018 Unknown Insomnia due to other mental disorder 10/09/2018 Unknown Radial styloid tenosynovitis 08/07/2018 Unknown Right wrist pain 08/07/2018 Unknown Painful menstrual periods 07/12/2018 Unknown Sprain of calcaneofibular ligament of left ankle 07/05/2018 Unknown Anxiety 05/29/2018 Unknown Environmental allergies 04/02/2018 Unknown PTSD (post-traumatic stress disorder) 03/19/2018 Unknown Chronic hand pain, right 03/19/2018 Unknown Vitamin D deficiency 03/19/2018 Unknown Essential hypertension 03/02/2018 Unknown TMJ (temporomandibular joint disorder) 03/02/2018 Unknown Chronic lumbar pain 03/02/2018 Unknown Left hip pain 03/02/2018 Unknown Asthma due to environmental allergies 02/16/2018 Unknown Class 3 severe obesity due to excess calories without serious comorbidity in adult Unknown Current Outpatient Medications on File Prior to Visit Medication Sig Dispense Refill albuterol-ipratropium (COMBIVENT RESPIMAT) 100-20 mcg/puff inhaler Inhale 1 puff into t he lungs every 4 hours as needed for Shortness of Breath. 1 Inhaler 5 amLODIPine (NORVASC) 5 mg tablet take 1 tablet by mouth once daily 1 azelastine 0.1% nasal spray instill 1 to 2 spray into each nostril twice a day if neede d 1 beclomethasone (QVAR) 80 mcg/puff inhaler Inhale 1 puff into the lungs. budesonide-formoterol (SYMBICORT) 160-4.5 mcg/puff inhaler Inhale 2 puffs into the lung s 2 times daily. busPIRone (BUSPAR) 15 mg tablet Take 15 mg TID 90 tablet 5 Cetirizine HCl (ZYRTEC PO) Take by mouth. Once a week Cholecalciferol (VITAMIN D3) 16279 units TABS Take 1 tablet by mouth Once a week for 16 doses. 16 tablet 0 diclofenac (VOLTAREN) 1% GEL Apply 4 g topically 3 times daily. 100 g 1 diphenhydrAMINE (BENADRYL) 25 MG capsule Take 25 mg by mouth nightly as needed for Itch ing. fexofenadine-pseudoePHEDrine (JOSÉ ANTONIO-D 24) 180-240 MG per tablet Take 1 tablet by mout h. fluticasone (FLONASE ALLERGY RELIEF) 50 mcg/nasal spray 1 spray by Nasal route Daily as needed for Allergies. meclizine (ANTIVERT) 12.5 mg tablet Take 1 tablet by mouth every 6 hours as needed. Prn dizziness 60 tablet 0 meloxicam (MOBIC) 7.5 mg tablet Take 1 tablet by mouth Daily as needed for Pain. 10 tab let 0 montelukast (SINGULAIR) 10 mg tablet Take 1 tablet by mouth nightly. 30 tablet 11 triamterene-hydrochlorothiazide (DYAZIDE) 37.5-25 MG per capsule Take 1 capsule by mout h every morning. No current facility-administered medications on file prior to visit. Objective: BP 119/86 | Pulse 86 | Temp 36.7 C (98 F) (Temporal) | Resp 18 | Ht 1.778 m (5' 10" ) | Wt (!) 171.9 kg (379 lb) | LMP 01/19/2019 (Exact Date) | SpO2 100% | BMI 54.38 kg/m Physical Exam Constitutional: She is oriented to person, place, and time. She appears well-developed and well-nourished. No distress. HENT: Mouth/Throat: Oropharynx is clear and moist. Talking and moving jaw without difficulty; indicates mild TMJ tenderness to palpation Pulmonary/Chest: Effort normal. No respiratory distress. Neurological: She is alert and oriented to person, place, and time. Skin: Skin is warm and dry. No rash noted. No erythema. No pallor. No results found for this or any previous visit (from the past 24 hour(s)). None Assessment: 1. Bilateral temporomandibular joint pain - methocarbamol (ROBAXIN) 500 mg tablet; Take one tablet 30-60 minutes prior to physical th erapy for TMJ Dispense: 2 tablet; Refill: 0 Plan: I called and talked with right all his physical therapist about [facility] physical th erapy. She reported that Andrea did have physical therapy this morning; they did not recomme nd a muscle relaxer, and this is not a new issue it is a chronic issue, but she might benefi t from a nonsedating muscle relaxer prior to the physical therapy. Will trial low dose Roba lisset prior to the physical therapy and have her follow-up with Dr. Ernst as planned to for r eevaluation. Return for with pcp as planned. Electronically signed by: BRADLEY [email or web address]:27 [facility] Note: Part of this report was transcribed using voice recognition software. Every effort wa s made to ensure accuracy. However, inadvertent computerized him tech errors may be pre sent. documente d in this encounter Plan of Treatment +--------+ + + + + | Date | Type | Specialty | Care Team | Description | +--------+ + + + + | 10/01/ | Office | Primary Care | Erika Ernst, | | | 2018 | Visit | | DO [address] | | | | | | [place] [address] | | | | | | [phone] | | | | | | | | +--------+ + + + + | 10/30/ | Office | Primary Care | Erika Ernst, | | | 2019 | Visit | | DO [address] [place] | | | | | | [place] [address] | | | | | | [phone] | | | | | | | | +--------+ + + + + | 11/07/ | Appointment | Nutrition | Janel Webster | | | 2019 | | | [address] | | +--------+ + + + + | 11/28/ | Office | Otolaryngology | Anthony Alvarado MD | | | 2019 | Visit | | [address] | | | | | | [place] | | | | | | [address] | | | | | | [phone] | | | | | | | | +--------+ + + + + | 02/09/ | Office | Neurology | Dhara, | | | 2019 | Visit | | DWAINE Ross [address] | | | | | [address] [place], | | | | | | [place] [address] | | | | | | [phone] | | | | | | | | +--------+ + + + + documented as of this encounter Visit Diagnoses + + | Diagnosis | + + | Bilateral temporomandibular joint pain - Primary Arthralgia of temporomandibular | | joint | + + documented in this encounter
--- OUTSIDE RECORDS SUMMARY | ~2019-09-30 | XMS | Encounter Summary ---
Demographics + + + | Address | [address] | | | [place] [address] | + + + | Home Phone [...] Team Providers + +------+ + | Care Waxing Machine Operator Helper Name | Role | Phone | + +------+ + PCP | Unavailable | + +------+ + Encounter Details +--------+ + + + + | Date | Type | Department | Care Team | Description | +--------+ + + + + | 05/28/ | [facility] | Nicanor Mckeon | | | 2017 | Encounter | [facility] | MD Caryn [address] | | | | | [facility] [address] | [place] | | | | | [address]TH [facility], | [address] | | | | | [place] [address] | [phone] | | | | | [phone] | | | +--------+ + + + [...] | | | | | [place] [address] | | | | | | [phone] | | | | | | | | +--------+ + + + + | 10/30/ | Office | Primary Care | Erika Ernst, | | | 2019 | Visit | | DO [address] | | | | | | [place] [address] | | | | | | [phone] | | | | | | | [...] [place] | | | | | | [address] | | | | | | [phone] | | | | | | | | +--------+ + + + + | 02/09/ | Office | Neurology | Dhara, | | | 2019 | Visit | | DWAINE Ross [address] | | | | [address] [place], | | | | | | [place] [address] | | | | | | [phone] | | | | | | | | +--------+ + + + + documented as of this encounter Visit Diagnoses Not on filedocumented in this encounter"
--- OUTSIDE RECORDS SUMMARY | ~2019-09-30 | XMS | Encounter Summary ---
Demographics + + + | Address | [address] | | | [place] [address] | + + + | Home Phone | | + + + | Preferred Language | Unknown | + + + | Marital Status | Single | + + + | Sikh Affiliation | Unknown | + + + [...] Team Providers + +------+ + | Care Testing Specialist Name | Role | Phone | [...] | | 2018 | Visit | [facility] | [facility], [facility] [address] | exacerbation, | | | | MEDICAL [facility] [address] | [address] [place] | unspecified whether | | | | [address] [place], | [place] [address] | persistent (Primary | | | | [place] [address] | [phone] | Dx); Cough | | | | [phone] | | productive of | | | [...] - start antibiotic - keep appointment with Director Of Scientific Research next week - use cough medication PRN [...] made to ensure accuracy. However, inadvertent computerized yeast pumper errors may be pre sent docasper mabry this encounter Plan of Treatment +--------+ + + + + | Date | Type | Specialty | Care Team | Description | +--------+ + + + + | 10/01/ | Office | Primary Care | Erika Ernst, | | | 2018 | Visit | | DO [facility] [address] | | | | | | [facility] [place] [address] | | | | | | [phone] | | | | | | | | +--------+ + + + + | 10/30/ | Office | Primary Care | Erika Ernst, | | | 2019 | Visit | | DO [address] | | | | | | [place] [address] | | | | | | [phone] | | | | | | | [...] [place] | | | | | | [address] | | | | | | [phone] | | | | | | | | +--------+ + + + + | 02/09/ | Office | Neurology | Dhara, | | | 2019 | Visit | | [address]WAINE Ross [address] | | | [address] [place], | | | | | | [place] [address] | | | | | | [phone] | | | | | | | | +--------+ + + + + documented as of this encounter Visit Diagnoses + + | Diagnosis | + + | Moderate asthma with exacerbation, unspecified whether persistent - Primary | + + | Cough productive of purulent sputum Cough | + + documented in this encounter"
--- OUTSIDE RECORDS SUMMARY | ~2019-09-30 | XMS | Encounter Summary ---
Demographics + + + | Address | [address] | | | [place] [address] | + + + | Home Phone [...] Team Providers + +------+ + | Care Industrial Ecologist Name | Role | Phone | + +------+ + | Erika Ernst DO | PCP | | + +------+ + Reason for Visit + + + | Reason | Comments | + + + | Lynnette Comp | FYI | + + + Encounter Details +--------+ + + + + | Date | Type | Department | Care Team | Description | +--------+ + + + + | 05/31/ | Telephone | [place] [facility] | Luis Nichole MD | [facility] ([facility]) | | 2019 | | HOSPITAL NEUROLOGY | [address] | | | | | CLINIC [address] | [place] | | | | | [address] [place], | [address] | | | | | [place] [address] | | | | | | [phone] | | | +--------+ + + + [...] | | | | | [place] [address] | | | | | | [phone] | | | | | | | | +--------+ + + + + | 10/30/ | Office | Primary Care | Erika Ernst, | | | 2019 | Visit | | DO [address] [place] | | | | | | [place] [address] | | | | | | [phone] | | | | | | | | +--------+ + + + + | 11/07/ | Appointment | Nutrition | Janel Webster | | | 2019 | | | [facility] | | +--------+ + + + + | 11/28/ | Office | Otolaryngology | Anthony Alvarado MD | | 2019 | Visit | | [address] | | | | | | [place], [place] | | | | | | [address] | | | | | | [phone] | | | | | | | | +--------+ + + + + | 02/09/ | Office | Neurology | Dhara, | | | 2020 | Visit | | DWAINE Ross [address] | | | | | [address] [place], | | | | | | [place] [address] | | | | | | [phone] | | | | | | | | +--------+ + + + + documented as of this encounter Visit Diagnoses Not on filedocumented in this encounter"
--- OUTSIDE RECORDS SUMMARY | ~2019-09-30 | XMS | Encounter Summary ---
Demographics + + + | Address | [address] | | | [place] [address] | + + + | Home Phone [...] Team Providers + +------+ + | Care Pulp Operator Name | Role | Phone | [...] Description | +--------+--------+ + + + | 04/13/ | Refill | [place] [facility] | Catherine Diaz, | Medication Refill | | 2019 | | [facility] | [facility] [address] | | | | | W[facility] CLIN[facility] [address] | [place], [place] [address] | | | | | [address] [place], | [phone] | | | | | [place] [address] | | | | | | [phone] | | | +--------+--------+ + + + [...] 2018 | Visit | | DO [address] | | | | | | [place] [address] | | | | | | [phone] | | | | | | | | +--------+ + + + + | 10/30/ | Office | Primary Care | Erika Ernst, | | | 2019 | Visit | | DO [address] | | | | | | [place] [address] | | | | | | [phone] | | | | | | | [...] [place] | | | | | | [address] | | | | | | [phone] | | | | | | | | +--------+ + + + + | 02/09/ | Office | Neurology | Dhara, | | | 2020 | Visit | | DWAINE Ross [address] | | | | | [address] [place], | | | | | | [place] [address] | | | | | | [phone] | | | | | | | | +--------+ + + + + documented as of this encounter Visit Diagnoses Not on filedocumented in this encounter"
--- OUTSIDE RECORDS SUMMARY | ~2019-09-30 | XMS | Encounter Summary ---
Demographics + + + | Address | [address] | | | [place] [address] | + + + | Home Phone [...] Team Providers + +------+ + | Care Wad Compressor Operator Adjuster Name | Role | Phone | + +------+ + PCP | Unavailable | + +------+ + Encounter Details +--------+ + + + + | Date | Type | Department | Care Team | Description | +--------+ + + + + | 11/15/ | [facility] | Nicanor Mckeon | | | 2016 | Encounter | HOSPITAL NURSERY | MD Caryn [address] | | | | | [address] | [place] | | | | | [place] | [address] | | | | | [address] | [phone] | | | | | [phone] | | | +--------+ + + + [...] | | | | | [place] [address] | | | | | | [phone] | | | | | | | | +--------+ + + + + | 10/30/ | Office | Primary Care | Erika Ernst, | | | 2019 | Visit | | DO [address] [place] | | | | | | [place] [address] | | | | | | [phone] | | | | | | | [...] [place] | | | | | | [address] | | | | | | [phone] | | | | | | | | +--------+ + + + + | 02/09/ | Office | Neurology | Dhara, | | | 2020 | Visit | | DWAINE Ross [address] | | | | [address] [place], | | | | | | [place] [address] | | | | | | [phone] | | | | | | | | +--------+ + + + + documented as of this encounter Visit Diagnoses Not on filedocumented in this encounter"
--- OUTSIDE RECORDS SUMMARY | ~2019-09-30 | XMS | Encounter Summary ---
Demographics + + + | Address | [address] | | | [place] [address] | + + + | Home Phone | | + + + | Preferred Language | Unknown | + + + | Marital Status | Single | + + + | Gnosticism Affiliation | Unknown | + + + [...] Team Providers + +------+ + | Care Teletypewriter Installer Name | Role | Phone | + +------+ + | Erika Ernst DO | PCP | | + +------+ + Encounter Details +--------+ + + + + | Date | Type | Department | Care Team | Description | +--------+ + + + + | 11/26/ | Orders Only | [facility] | Erika Ernst, | Subclinical | | 2019 | | [facility] | DO [address] | hypothyroidism | | | | [facility] [address] | [place] [address] | (Primary Dx) | | | | [address] [place], | [phone] | | | | | [place] [address] | | | | | | [phone] | | | +--------+ + + + [...] | | | | | [place] [address] | | | | | | [phone] | | | | | | | | +--------+ + + + + | 10/30/ | Office | Primary Care | Erika Ernst, | | | 2019 | Visit | | DO [address] | | | | | | [place] [address] | | | | | | [phone] | | | | | | | [...] | | | | | | [place], [place] | | | | | | [address] | | | | | | [phone] | | | | | | | | +--------+ + + + + | 02/09/ | Office | Neurology | Dhara, | | | 2019 | Visit | | DWAINE Ross [address] | | | | | | [address] [place], | | | | | | [place] [address] | | | | | | [phone] | | | | | | | | +--------+ + + + + documented as of this encounter Results TSH (12/26/2018 11:12 AM PDT) + +-------+ + + + | Component | Value | Ref Range | Performed | Pathologist | | | | | At | Signature | + +-------+ + + + | TSH | 3.60 | 0.36 - 3.74 | [place] | | | | | uIU/mL | [facility] | | | [facility] | | | | [facility] | | | | | | [facility] LAB | | + +-------+ + + + + + | Specimen | + + | Blood | + + + + + + + | Performing | Address | City/State/Zipcode | Phone Number | | Organization | | | | + + + + + | [place] [facility] | [address] | [place] [address] | [phone] | | [facility] | | | | | [facility] | | | | + + + + + T4, Total (12/26/2018 11:12 AM PDT) + + + + + + | Component | Value | Ref Range | Performed | Pathologist | | | | | At | Signature | + + + + + + | T4, Total | 7.5Comment: @ Test | 5.1 - 11.9 | REFERENCE | | | | Performed By: [facility] | mcg/dL | [facility] | | | | [facility] | | [facility]AGNO[facility] | | | | Manasa Bethea | | - VJ | | | | Catrina So, Ph.D., | | ENIO | | | | Field Sales Consultant | | | | | | [id number] [facility] | | | | | | [place] [address] | | | | | | CLIA #[id number] | | | | + + + + + + + + | Specimen | + + | Blood | + + + + + | Narrative | Performed At | + + + | Performing Organization Information: Site ID: [id number] ([id number]), | REFERENCE LAB | | TOTAL Name: Address: , Director: | [facility] | | | [facility] - | | | VJ | | | [place] | + + + + + + + + | Performing | Address | City/State/Zipcode | Phone Number | | Organization | | | | + + + + + | REFERENCE LAB | [id number] [facility] | [place], [place] | | | [facility] - | | [address] | | | V[facility] | | | | + + + + + documented in this encounter Visit Diagnoses + + | Diagnosis | + + | Subclinical hypothyroidism - Primary Other specified acquired hypothyroidism | + + documented in this encounter"
--- OUTSIDE RECORDS SUMMARY | ~2019-09-30 | XMS | Encounter Summary ---
Demographics + + + | Address | [address] | | | [place] [address] | + + + | Home Phone [...] Team Providers + +------+ + | Care Digital Media Producer Name | Role | Phone | + +------+ + PCP | Unavailable | + +------+ + Encounter Details +--------+ + + + + | Date | Type | Department | Care Team | Description | +--------+ + + + + | 01/29/ | [facility] | Spenser Roberts NP | | | 2014 | Encounter | [facility] | [address], | | | | | MEDICAL CLIN[facility] [address] | [place] [address] | | | | | 4TH [facility], | [phone] | | | | | [place] [address] | | | | | | [phone] | | | +--------+ + + + [...] | | | | | [place] [address] | | | | | | [phone] | | | | | | | | +--------+ + + + + | 10/30/ | Office | Primary Care | Erika Ernst, | | | 2019 | Visit | | DO [address] | | | | | | [place] [address] | | | | | | [phone] | | | | | | | [...] [place] | | | | | | [address] | | | | | | [phone] | | | | | | | | +--------+ + + + + | 02/09/ | Office | Neurology | Dhara, | | | 2020 | Visit | | DWAINE Ross [address] | | | | | | [address] [place], | | | | | | [place] [address] | | | | | | [phone] | | | | | | | | +--------+ + + + + documented as of this encounter Visit Diagnoses Not on filedocumented in this encounter"
--- OUTSIDE RECORDS SUMMARY | ~2019-09-30 | XMS | Encounter Summary ---
Demographics + + + | Address | [address] | | | [place] [address] | + + + | Home Phone [...] Team Providers + +------+ + | Care Weigher Operator Name | Role | Phone | + +------+ + | Erika Ernst DO | PCP | | + +------+ + Reason for Visit + + + | Reason | Comments | + + + | ED Follow-up | | + + + Encounter Details +--------+ + + + + | Date | Type | Department | Care Team | Description | +--------+ + + + + | 08/26/ | Telephone | [facility] [facility] | Erika Ernst, | ED Follow-up | | 2019 | | [facility] | DO [address] | | | | | MEDICAL CLINIC [address] | [place] [address] | | | | | [address] [place], | [phone] | | | | | [place] [address] | | | | | | [phone] | | | +--------+ + + + [...] | | | | | | [place], [place] [address] | | | | | | [phone] | | | | | | | | +--------+ + + + + | 10/30/ | Office | Primary Care | Erika Ernst, | | | 2019 | Visit | | DO [address] [place] [address] | | | | | | [place] [address] | | | | | | [phone] | | | | | | | [...] [place] | | | | | | [address] | | | | | | [phone] | | | | | | | | +--------+ + + + + | 02/09/ | Office | Neurology | Dhara, | | | 2019 | Visit | | DWAINE Ross [address] | | | | | | [address] [place], | | | | | | [place] [address] | | | | | | [phone] | | | | | | | | +--------+ + + + + documented as of this encounter Visit Diagnoses Not on filedocumented in this encounter"
--- OUTSIDE RECORDS SUMMARY | ~2019-09-30 | XMS | Encounter Summary ---
Demographics + + + | Address | [address] | | | [place] [address] | + + + | Home Phone | | + + + | Preferred Language | Unknown | + + + | Marital Status | Single | + + + | Tenriism Affiliation | Unknown | + + + | Race | Unknown | + + + | Ethnic Group | Unknown | + + + Author + + + | Author | [facility] | | | and [place] | + + + | Organization | [facility] | | [...] Team Providers + +------+ + | Care Passenger Conductor Name | Role | Phone | + +------+ + PCP | Unavailable | + +------+ + Encounter Details +--------+ + + + + | Date | Type | Department | Care Team | Description | +--------+ + + + + | 02/09/ | [facility] | Heike Rodriguez, | | | 2015 | Encounter | [facility] | MANAGER PROGRAMMING [address] | | | | | C[address] | [place] | | | | | [place] | [address] | | | | | [address] | | | | | | [phone] | | | +--------+ + + + [...] | | | | | [place] [address] | | | | | | [phone] | | | | | | | | +--------+ + + + + | 10/30/ | Office | Primary Care | Erika Ernst, | | | 2019 | Visit | | DO [address] | | | | | | [place] [address] | | | | | | [phone] | | | | | | | [...] [place] | | | | | | [address] | | | | | | [phone] | | | | | | | | +--------+ + + + + | 02/09/ | Office | Neurology | Dhara, | | | 2019 | Visit | | Cody, [facility] [address] | | | | | | 4TH [facility], | | | | | | [place] [address] | | | | | | [phone] | | | | | | | | +--------+ + + + + documented as of this encounter Procedures + +--------+ + + + | Procedure Name | Priori | Date/Time | Associated Diagnosis | Comments | | | ty | | | | + +--------+ + + + | XR CHEST 2 VIEWS | Routin | 02/09/2015 | | Results for this | | | e | 7:44 PM | | procedure are in the | | | | PDT | | results section. | + +--------+ + + + documented in this encounter Results XR Chest 2 VW (02/09/2015 7:44 PM PDT) + + | Specimen | + + | | + + + + + | Narrative | Performed At | + + + | ORIGINAL PA AND LATERAL CHEST: HISTORY: | | | Congestion. COMPARISON: June 11, 2014. FINDINGS: The | | | lungs are mildly hypoventilated. There is left basilar airspace | | | opacity. No pleural effusion, no pneumothorax. Heart size is | | | within normal limits. No acute bone process. IMPRESSION: Left | | | basilar pneumonia. Read By: | | | DAYANA COON MD Released By: DAYANA COON MD Date: | | | 02/12/2015 08:22 | | + + + + + | Procedure Note | + + | Mitchel, Rad Results In - 08/09/2017 7:16 PM PST ORIGINAL PA AND LATERAL CHEST: | | HISTORY:Congestion. COMPARISON:June 11, 2014. FINDINGS:The lungs are mildly | | hypoventilated. There is left basilar airspace opacity. No pleural effusion, no | | pneumothorax. Heart size is within normal limits. No acute bone process. | | IMPRESSION:Left basilar pneumonia. Job #: [id number] Read By: DAYANA Boyd | | MD JAYMIE Released By: CECILY CARBAJALate: 02/12/2015 08:22 | |HISTORY: | |Congestion. | | | |COMPARISON: | |June 11, 2014. | | | |FINDINGS: | |The lungs are mildly hypoventilated. There is left basilar airspace opacity. No pleural e ffusion, no pneumothorax. Heart size is within normal limits. No acute bone process. | | | |IMPRESSION: | |Left basilar pneumonia. | | | | | | | | | |Read By: DAYANA COON MD | | | |Released By: DAYANA COON MD | |Date: 02/12/2015 08:22 | | | | | + + documented in this encounter Visit Diagnoses Not on filedocumented in this encounter"
--- OUTSIDE RECORDS SUMMARY | ~2019-09-30 | XMS | Encounter Summary ---
Demographics + + + | Address | [address] | | | [place] [address] | + + + | Home Phone [...] Team Providers + +------+ + | Care Hair Baler Name | Role | Phone | + +------+ + | Erika Ernst DO | PCP | | + +------+ + Encounter Details +--------+ + + + + | Date | Type | Department | Care Team | Description | +--------+ + + + + | 08/29/ | Abstract | [facility] [facility] | Uma, | | | 2016 | | [facility] ENT [address] | Hilary Henry RN | | | | | [place] | | | | | | [place] | | | | | | [address] | | | | | | [phone] | | | +--------+ + + + [...] | | | | | [place] [address] | | | | | | [phone] | | | | | | | | +--------+ + + + + | 10/30/ | Office | Primary Care | Erika Ernst, | | | 2019 | Visit | | DO [address] | | | | | | [place] [address] | | | | | | [phone] | | | | | | | [...] [place] | | | | | | [address] | | | | | | [phone] | | | | | | | | +--------+ + + + + | 02/09/ | Office | Neurology | Dhara, | | | 2020 | Visit | | DWAINE Ross [address] | | | | | [address] [place], | | | | | | [place] [address] | | | | | | [phone] | | | | | | | | +--------+ + + + + documented as of this encounter Visit Diagnoses Not on filedocumented in this encounter"
--- OUTSIDE RECORDS SUMMARY | ~2019-09-30 | XMS | Encounter Summary ---
Demographics + + + | Address | [address] | | | [place] [address] | + + + | Home Phone | | + + + | Preferred Language | Unknown | + + + | Marital Status | Single | + + + | Taoism Affiliation | Unknown | + + + | Race | Unknown | + + + | Ethnic Group | Unknown | + + + Author + + + | Author | [facility] | | | and [place] | + + + | Organization | [facility] | | | and [place] | + + + | Address | Unknown | + + + | Phone | Unavailable | + + + Support + + +---------+ + | Name | Relationship | Address | Phone | + + +---------+ + | Bhvana Boss | ECON | Unknown | | + + +---------+ + Care Team Providers + +------+ + | Care Service Employee Name | Role | Phone | + +------+ + PCP | Unavailable | + +------+ + Encounter Details +--------+ + + + + | Date | Type | Department | Care Team | Description | +--------+ + + + + | 04/12/ | Hospital | [place] [facility] | Jenise Benitez, | | | 2016 | Encounter | H[facility] X[facility] | CLINICAL RESOURCE NURSE [address] | | | | | [place] | [place] [address] | | | | | [place], [place] | [phone] | | | | | [address] | | | | | | [phone] | | | +--------+ + + + [...] | | | | | [place] [address] | | | | | | [phone] | | | | | | | | +--------+ + + + + | 10/30/ | Office | Primary Care | Erika Ernst, | | | 2019 | Visit | | DO [address] | | | | | | [place] [address] | | | | | | [phone] | | | | | | | [...] [place] | | | | | | [address] | | | | | | [phone] | | | | | | | | +--------+ + + + + | 02/09/ | Office | Neurology | Dhara, | | | 2019 | Visit | | DWAINE Ross [address] | | | [address] [place], | | | | | | [place] [address] | | | | | | [phone] | | | | | | | | +--------+ + + + + documented as of this encounter Procedures + +--------+ + + + | Procedure Name | Priori | Date/Time | Associated Diagnosis | Comments | | | ty | | | | + +--------+ + + + | XR CHEST 2 VIEWS | Routin | 04/12/2016 | | Results for this | | | e | 8:52 AM | | procedure are in the | | | | PDT | | results section. | + +--------+ + + + documented in this encounter Results XR Chest 2 VW (04/12/2016 8:52 AM PDT) + + | Specimen | + + | | + + + + + | Narrative | Performed At | + + + | ORIGINAL PA AND LATERAL CHEST HISTORY: Cough and | | | fatigue. COMPARISON STUDY: February 18, 2015. FINDINGS: Lungs are | | | well ventilated. There is no pleural effusion. No pneumothorax. No | | | focal lung parenchymal opacity. No acute bone process. IMPRESSION: | | | No evidence of acute cardiopulmonary process. Job | | | No.: [id number] Read By: DAYANA COON MD Released By: | | | DAYANA CONO MD Date: 04/12/2016 18:28 | | + + + + + | Procedure Note | + + | Mitchel, Rad Results In - 08/09/2017 10:58 PM PST ORIGINAL PA AND LATERAL CHEST | | HISTORY:Cough and fatigue. COMPARISON STUDY:February 18, 2015. FINDINGS:Lungs are well | | ventilated. There is no pleural effusion. No pneumothorax. No focal lung parenchymal | | opacity. No acute bone process. IMPRESSION:No evidence of acute cardiopulmonary process. | | Job No.: [id number] Read By: DAYANA COON MD Released By: DAYANA Lr. | | JAYMIE MDDate: 04/12/2016 18:28 | |Cough and fatigue. | | | |COMPARISON STUDY: | |February 18, 2015. | | | |FINDINGS: | |Lungs are well ventilated. There is no pleural effusion. No pneumothorax. No focal lung par enchymal opacity. No acute bone process. | | | |IMPRESSION: | |No evidence of acute cardiopulmonary process. | | | | | |Job No.: [id number] | | | |Read By: DAYANA COON MD | | | |Released By: DAYANA COON MD | |Date: 04/12/2016 18:28 | | | | | + + documented in this encounter Visit Diagnoses Not on filedocumented in this encounter"
--- OUTSIDE RECORDS SUMMARY | ~2019-09-30 | XMS | Encounter Summary ---
Demographics + + + | Address | [address] | | | [place] [address] | + + + | Home Phone [...] Team Providers + +------+ + | Care Housekeeping Room Inspector Name | Role | Phone | + +------+ + | Erika Ernst DO | PCP | | + +------+ + Encounter Details +--------+ + + + + | Date | Type | Department | Care Team | Description | +--------+ + + + + | 03/14/ | Hospital | [facility] [facility] | Erika Ernst, | Right foot pain | | 2018 | Encounter | [facility] XRAY [facility] | DO [address] | | | | | [address] [place] | [place] [address] | | | | | [place], [place] | [phone] | | | | | [address] | | | | | | [phone] | | | +--------+ + + + [...] + + + +---------+ + + | lisinopril | Take 1 tablet by | 30 | 11 | 03/02/20 | | | (PRINIVIL, ZESTRIL) | mouth Daily. | tablet | | 18 | 8 | | 10 mg tablet | | | | | [...] 2019 | Visit | | DO [address] | | | | | | [place] [address] | | | | | | [phone] | | | | | | | | +--------+ + + + + | 10/30/ | Office | Primary Care | Erika Ernst, | | | 2019 | Visit | | DO [address] | | | | | | [place] [address] | | | | | | [phone] | | | | | | | [...] [place] | | | | | | [address] | | | | | | [phone] | | | | | | | | +--------+ + + + + | 02/09/ | Office | Neurology | Dhara, | | | 2019 | Visit | | DWAINE Ross [address] | | | | | | [address]TH [facility], | | | | | | [place] [address] | | | | | | [phone] | | | | | | | | +--------+ + + + + documented as of this encounter Procedures + +--------+ + + + | Procedure Name | Priori | Date/Time | Associated Diagnosis | Comments | | | ty | | | | + +--------+ + + + | XR FOOT RIGHT 2 VW | Routin | 03/14/2018 | Right foot pain | Results for this | | | e | 4:04 PM | | procedure are in the | | | | PDT | | results section. | + +--------+ + + + documented in this encounter Results XR Foot Right 2 Vw (03/14/2018 4:04 PM PDT) + + | Specimen | [...] show no evidence of an acute fracture. | | | No subluxation. No dislocation. There is soft tissue swelling | | | of the medial foot. Age appropriate bone mineral density. | | + + + + + | Procedure Note | + + | Mitchel, Rad Results In - 03/14/2018 4:59 PM PDT EXAMINATION:XR FOOT RIGHT 2 | | [...] of the medial foot. Age appropriate bone entry examiner al density. | | | |IMPRESSION: | [...] | Diagnosis | + + | Right foot pain Pain in limb | + + documented in this encounter"
--- OUTSIDE RECORDS SUMMARY | ~2019-09-30 | XMS | Encounter Summary ---
Demographics + + + | Address | [address] | | | [place] [address] | + + + | Home Phone | | + + + | Preferred Language | Unknown | + + + | Marital Status | Single | + + + | Uatsdin Affiliation | Unknown | + + + | Race | Unknown | + + + | Ethnic Group | Unknown | + + + Author + + + | Author | [facility] | | | and [place] | + + + | Organization | [facility] | | | [...] Team Providers + +------+ + | Care Small Engine Trainer Name | Role | Phone | + +------+ + PCP | Unavailable | + +------+ + Encounter Details +--------+ + + + + | Date | Type | Department | Care Team | Description | +--------+ + + + + | 08/06/ | [facility] | Caro Zendejas | | | 2012 | Encounter | [facility] | Vale, BACK UP SCAN COORDINATOR [address] | | | | | MEDICAL CL[facility] [address] | [facility], [place] | | | | | 4TH [facility], | [address] | | | | | [place] [address] | [phone] | | | | | [phone] | | | +--------+ + + + [...] | | | | | [place] [address] | | | | | | [phone] | | | | | | | | +--------+ + + + + | 10/30/ | Office | Primary Care | Erika Ernst, | | | 2019 | Visit | | DO [address] | | | | | | [place] [address] | | | | | | [phone] | | | | | | | [...] [place] | | | | | | [address] | | | | | | [phone] | | | | | | | | +--------+ + + + + | 02/09/ | Office | Neurology | Dhara, | | | 2020 | Visit | | DWAINE Ross [address] | | | | [address] [place], | | | | | | [place] [address] | | | | | | [phone] | | | | | | | | +--------+ + + + + documented as of this encounter Visit Diagnoses Not on filedocumented in this encounter"
--- OUTSIDE RECORDS SUMMARY | ~2019-09-30 | XMS | Encounter Summary ---
Demographics + + + | Address | [address] | | | [place] [address] | + + + | Home Phone | | + + + | Preferred Language | Unknown | + + + | Marital Status | Single | + + + | Yarsani Affiliation | Unknown | + + + [...] Providers + +------+ + | Care Director Business Systems Name | Role | Phone | + +------+ + | Erika Ernst DO | PCP | | + +------+ + Reason for Visit + + + | Reason | Comments | + + + | Follow-up | possible bronchitis | + + + Encounter Details +--------+---------+ + + + | Date | Type | Department | Care Team | Description | +--------+---------+ + + + | 04/16/ | Office | [place] [facility] | Harvey, | Moderate persistent | | 2019 | Visit | [facility] | joanna, MANAGER [address] | asthma with | | | | MEDICAL CLINIC [address] | exacerbation | | | | [address] [place], | [place] [address] | (Primary Dx); | | | | [place] [address] | [phone] | Environmental | | | | [phone] | | allergies | +--------+---------+ + + [...] + + + | Blood Pressure | 118/62 | 04/16/2019 8:41 AM | | | | | PDT | | + + + + + | Pulse | 74 | 04/16/2019 8:41 AM | | | | | PDT | | + + + + + | Temperature | 36.4 C (97.6 F) | 04/16/2019 8:41 AM | | | | | PDT | | + + + + + | Respiratory Rate | 18 | 04/16/2019 8:41 AM | | | | | PDT | | + + + + + | Oxygen Saturation | 98% | 04/16/2019 8:41 AM | | | | | PDT [...] + + documented in this encounter Progress Salinas Pagan FNP - 04/16/2019 8:30 AM PDTFormatting of this note might be differe nt from the original. Chief Complaint Patient presents with Follow-up possible bronchitis Assessment 1. Moderate persistent asthma with exacerbation - azithromycin (ZITHROMAX) 500 MG tablet; Take 1 tablet by mouth Daily. Dispense: 7 tablet ; Refill: 0 2. Environmental allergies - azithromycin (ZITHROMAX) 500 MG tablet; Take 1 tablet by mouth Daily. Dispense: 7 tablet ; Refill: 0 Plan - Patient to continue her prednisone that was prescribed by her PCP however she is to maint ain a 40 mg dose until it is completed Patient to start antibiotic today Patient to increase her probiotics while on antibiotics Subjective: Patient ID: Andrea Suh is a 28 y.o. female who is new to me, presents for the foll owing concern(s): Patient was seen on April 14 by her PCP and that that time she did not have the purulent muc us. She stated that it has been on and off for the past 2-3 weeks but over the weekend it g ot worse. Cough This is a chronic problem. The problem has been gradually worsening. The problem occurs con stantly. The cough is productive of purulent sputum (more coughing at night). Associated sym ptoms include chest pain. Nothing aggravates the symptoms. She has tried leukotriene antagon ists, ipratropium inhaler, steroid inhaler and oral steroids for the symptoms. The treatment provided moderate relief. Her past medical history is significant for asthma and environmen estevan allergies. Patient has an appointment with ENT for her allergies. She is looking to get a second opin ion on what is going on. Objective: BP 118/62 | Pulse 74 | Temp 36.4 C (97.6 F) (Temporal) | Resp 18 | SpO2 98% Physical Exam Constitutional: She appears well-developed. Pulmonary/Chest: She has decreased breath sounds in the right middle field, the right lower field, the left middle field and the left lower field. Neurological: She is alert. Social History Socioeconomic History Marital status: Single [...] Tape Rash Electronically signed by DWAINE Orozco 04/16/2019 08:58 Note: Part of this report was transcribed using voice recognition software. Every effort wa s made to ensure accuracy. However, inadvertent computerized civil engineering professional errors may be pre sent documented in t his encounter Plan of Treatment +--------+ + + + + | Date | Type | Specialty | Care Team | Description | +--------+ + + + + | 10/01/ | Office | Primary Care | Erika Ernst, | | | 2018 | Visit | | DO [address] | | | | | | [place] [address] | | | | | | [phone] | | | | | | | | +--------+ + + + + | 10/30/ | Office | Primary Care | Erika Ernst, | | | 2019 | Visit | | DO [address] | | | | | | [place] [address] | | | | | | [phone] | | | | | | | [...] [place] | | | | | | [address] | | | | | | [phone] | | | | | | | | +--------+ + + + + | 02/09/ | Office | Neurology | Dhara, | | | 2020 | Visit | | Cody, MANAGER [address] | | | | | | [address] [facility] [place], | | | | | | [place] [address] | | | | | | [phone] | | | | | | | | +--------+ + + + + documented as of this encounter Visit Diagnoses + + | Diagnosis | + + | Moderate persistent asthma with exacerbation - Primary Unspecified asthma, with | | exacerbation | + + | Environmental allergies Allergic rhinitis, cause unspecified | + + documented in this encounter"
--- OUTSIDE RECORDS SUMMARY | ~2019-09-30 | XMS | Encounter Summary ---
Demographics + + + | Address | [address] | | | [place] [address] | + + + | Home Phone [...] Team Providers + +------+ + | Care Forklift Mechanic Name | Role | Phone | [...] + + + + | 05/02/ | Telephone | [place] [facility] | Erika Ernst, | Results, Imaging | | 2019 | | [facility] | DO [address] | | | | | [facility] [address] | [place] [address] | | | | | [address] [place], | [phone] | | | | | [place] [address] | | | | | | [phone] | | | +--------+ + + + [...] | | | | | [place] [address] | | | | | | [phone] | | | | | | | | +--------+ + + + + | 10/30/ | Office | Primary Care | Erika Ernst, | | | 2019 | Visit | | DO [address] | | | | | | [place] [address] | | | | | | [phone] | | | | | | | [...] [place] | | | | | | [address] | | | | | | [phone] | | | | | | | | +--------+ + + + + | 02/09/ | Office | Neurology | Dhara, | | | 2020 | Visit | | [address] | | | | | | [address] [place], | | | | | | [place] [address] | | | | | | [phone] | | | | | | | | +--------+ + + + + documented as of this encounter Visit Diagnoses Not on filedocumented in this encounter"
--- OUTSIDE RECORDS SUMMARY | ~2019-09-30 | XMS | Encounter Summary ---
Demographics + + + | Address | [address] | | | [place] [address] | + + + | Home Phone [...] + + + | Author | [facility] | | | and [place] | + + + | Organization | [facility] | | [...] Team Providers + +------+ + | Care Hot Box Spotter Name | Role | Phone | + [...] | tic stress | [place], | [place] | | | | | disorder) | [place] [address] | Health and | | | | | Anxiety | Phone: | Service | | | | | Somatic | [phone] | | | | | | symptom | Fax: | | | | | | disorder | [phone] | | + + + + + [...] | MEDICAL [facility]IN[facility] [address] | [place] [address] | (Primary Dx); Iron | | | | [address] [place], | 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 She was seen in ER in [place] when she was helpi ng her Mom [...] new referral to Dr Modesto Blackwood in [place] for the prior work comp wrist hand [...] to see a psychiatrist she knows in [facility] and we will make that referral. Non-smoker. [...] | | | | | [place] [address] | | | | | | [phone] | | | | | | | | +--------+ + + + + | 10/30/ | Office | Primary Care | Erika Ernst, | | | 2019 | Visit | | DO [address] | | | | | | [place] [address] | | | | | | [phone] | | | | | | | [...] [place] | | | | | | [address] | | | | | | [phone] | | | | | | | | +--------+ + + + + | 02/09/ | Office | Neurology | Dhara, | | | 2019 | Visit | | [address] | | | | | | 4TH [facility], | | | | | | [place] [address] | | | | | | [phone] | | | | | | | [...]
--- OUTSIDE RECORDS SUMMARY | ~2019-09-30 | XMS | Encounter Summary ---
Demographics + + + | Address | [address] | | | [place] [address] | + + + | Home Phone [...] Team Providers + +------+ + | Care Intelligence Specialist Name | Role | Phone | [...] | | | of left | [place] [address] | [place] [address] | | | | | ankle, | Phone: | Phone: | | | | | initial | [phone] | [phone] | | | | | encounter | Fax: | Fax: | | | | | Procedures | [phone] | [phone] | | | | | PT EVAL [...] [address] | [place] [address] | encounter (Primary | | | | [place], [place] | [phone] | Dx) | | | | [address] | | | | | | [phone] | Nick Barrios I, PT | | [...] might be different fro m the original. [facility] [address] [place] [address] Physical Therapy Daily Treatment Note Date: 08/28/2018 [...] in favor of SL heel raise with FIRE ALARM INSPECTOR. ONGOING: SLS on even surface 3x30 seconds [...] minutes) Rhomberg stance on bosu eyes open FIRE ALARM INSPECTOR as needed 1 minute // SLS on bosu FIRE ALARM INSPECTOR grab bar as needed 1x1 minute 2x30 [...] | | | | | [place] [address] | | | | | | [phone] | | | | | | | | +--------+ + + + + | 10/30/ | Office | Primary Care | Erika Ernst, | | | 2019 | Visit | | DO [address] | | | | | | [place] [address] | | | | | | [phone] | | | | | | | [...] | | | | | [place] | | | | | | [address] | | | | | | [phone] | | | | | | | | +--------+ + + + + | 02/09/ | Office | Neurology | Dhara, | | | 2020 | Visit | | [address] | | | | | | [address]TH [facility] [place], | | | | | | [place] [address] | | | | | | [phone] | | | | | | | | +--------+ + + + + documented as of this encounter Visit Diagnoses + + | Diagnosis | + + | Sprain of left ankle, subsequent encounter - Primary | + + documented in this encounter
--- OUTSIDE RECORDS SUMMARY | ~2019-09-30 | XMS | Encounter Summary ---
Demographics + + + | Address | [address] | | | [place] [address] | + + + | Home Phone [...] Team Providers + +------+ + | Care Parts Counter Associate Name | Role | Phone | [...] Description | +--------+--------+ + + + | 05/16/ | Refill | [place] [facility] | Erika Ernst, | Medication Refill | | 2017 | | [facility] | [address] | | | | | MEDICAL CLINIC [address] | [place] [address] | | | | | [address] [place], | [phone] | | | | | [place] [address] | | | | | | [phone] | | | +--------+--------+ + + + [...] | | | | | [place] [address] | | | | | | [phone] | | | | | | | | +--------+ + + + + | 10/30/ | Office | Primary Care | Erika Ernst, | | | 2019 | Visit | | DO [address] | | | | | | [place] [address] | | | | | | [phone] | | | | | | | [...] [place] | | | | | | [address] | | | | | | [phone] | | | | | | | | +--------+ + + + + | 02/09/ | Office | Neurology | Dhara, | | | 2019 | Visit | | [address] | | | | | | [address] [place], | | | | | | [place] [address] | | | | | | [phone] | | | | | | | | +--------+ + + + + documented as of this encounter Visit Diagnoses Not on filedocumented in this encounter"
--- OUTSIDE RECORDS SUMMARY | ~2019-09-30 | XMS | Encounter Summary ---
Demographics + + + | Address | [address] | | | [place] [address] | + + + | Home Phone | | + + + | Preferred Language | Unknown | + + + | Marital Status | Single | + + + | Zoroastrianism Affiliation | Unknown | + + + [...] Team Providers + +------+ + | Care Cognos Developer Name | Role | Phone | + +------+ + | Erika Ernst DO | PCP | | + +------+ + Reason for Visit +--------+ + | Reason | Comments | +--------+ + | Asthma | | +--------+ + Encounter Details +--------+ + + + + | Date | Type | Department | Care Team | Description | +--------+ + + + + | 03/01/ | Telephone | [place] [facility] | Erika Ernst, | Asthma | | 2019 | | [facility] | DO [address] | | | | | MEDICAL CLIN[facility] [address] | [place] [address] | | | | | [address] [place], | [phone] | | | | | [place] [address] | | | | | | [phone] | | | +--------+ + + + [...] | | | | | [place] [address] | | | | | | [phone] | | | | | | | | +--------+ + + + + | 10/30/ | Office | Primary Care | Erika Ernst, | | | 2019 | Visit | | DO [address] | | | | | | [place] [address] | | | | | | [phone] | | | | | | | [...] [place] | | | | | | [address] | | | | | | [phone] | | | | | | | | +--------+ + + + + | 02/09/ | Office | Neurology | Dhara, | | | 2020 | Visit | | [address] | | | | | | [address] [place], | | | | | | [place] [address] | | | | | | [phone] | | | | | | | | +--------+ + + + + documented as of this encounter Visit Diagnoses Not on filedocumented in this encounter"
--- OUTSIDE RECORDS SUMMARY | ~2019-09-30 | XMS | Encounter Summary ---
Demographics + + + | Address | [address] | | | [place] [address] | + + + | Home Phone [...] Team Providers + +------+ + | Care Straw Hat Washer Operator Name | Role | Phone | + +------+ + | Erika Ernst DO | PCP | | + +------+ + Reason for Visit Auth/Cert (Routine) +--------+--------+ + + + + | Status | Reason | Specialty | Diagnoses / | Referred By | Referred To | | | | | Procedures | Contact | Contact | +--------+--------+ + + + + | | | | Diagnoses | | | | | | | Uknown | | | | | | | Procedures | | | | | | | VA REPR | | | | | | | FOREARM | | | | | | | TEND/MUSC,EX | | | | | | | TEN,PRIM,EA | | | | | | | VA REPR | | | | | | | FOREARM | | | | | | | TEND/MUSC,EX | | | | | | | TEN,SECOND | | | | | | | VA REPR | | | | | | | FOREARM | | | | | | | TEND/EXT,SEC | | | | | | | OND,GRAFT,EA | | | | | | | REPAIR | | | | | | | E.C.U. | | | | | | | Tendon | | | +--------+--------+ + + + + Encounter Details +--------+ + + + + | Date | Type | Department | Care Team | Description | +--------+ + + + + | 03/20/ | Hospital | [place] [facility] | Inocencio Noriega | | | 2019 | Encounter | [facility] | MD [address] | | | | | [address] | [address] | | | | | [place], [place] | [place] [address] | | | | | [address] | [phone] | | | | | [phone] | | | +--------+ + + + [...] + + + | Blood Pressure | 131/80 | 03/20/2019 12:00 PM | | | | | PDT | | + + + + + | Pulse | 76 | 03/20/2019 12:00 PM | | | | | PDT | | + + + + + | Temperature | 36.3 C (97.3 F) | 03/20/2019 11:33 AM | | | | | PDT | | + + + + + | Respiratory Rate | 18 | 03/20/2019 12:00 PM | | | | | PDT | | + + + + + | Oxygen Saturation | 95% | 03/20/2019 12:00 PM | | | | | PDT [...] documented in this encounter Discharge Instructions Instructions Inocencio Noriega MD - 03/20/2019Post-op Care Instructions These instructions are to compliment the information given by the nursing staff and physici an. They cover many of the common questions. Wound Care -- Leave the surgery dressing on until first post-operative visit in 4-5 days. Keep the d ressing clean and dry. Prevent it from getting wet during bathing/showering by covering it up with a plastic bag. -- Keep the splint on until seen in the office. If the dressing gets lightly soiled it is best to reinforce the dressing rather than remove it. Before taking off the splint for any reason please contact the office for help or instructions. Pain and Swelling -- To lessen pain and swelling, keep the operative hand above your heart. Avoid using a sl ing since this will increase swelling to the hand. Ice, in a plastic bag or towel, can be a pplied to dressing to help with the pain. We recommend no more than 20 minutes, 4-5 times p er day. Do not place ice or ice packs directly on the skin. -- Narcotic pain medication may be prescribed for use after you leave the hospital. If you need the narcotic medication for pain control watch for constipation. You may want to use an over the counter stool softener. Tylenol products may be used instead and is usua lly the preferred pain control for this surgery. If narcotics were prescribed, try to wean the medication over post-operative day 1-3. By post-op day 4, only over the counter tylenol or ibuprofen should be needed. It can help to stagger your pain medication with ibuprofen or Aleve as needed. If a refill of medication is needed, please call the office during regular business hours, Monday-Monday 8:00 a.m. to 5:00 p.m. In general, refills will not be made after hours or on weekends, so please plan ahead. Exercises Depending on what type of splint you were immobilized with you may not be able to move your fingers or wrist. Exercises will be started once immobilization is no longer necessary. Follow-up Make sure an appointment has been scheduled for you at 4-5 days post-operatively for a woun d check and dressing change. Sutures will be removed at 2 weeks post-operatively. Please c all. When to Call If you have increased swelling or bruising. If swelling and redness persist after a few days. If you have increased redness along the incision. If you have severe or increased pain not relieved by medication. If you have any side effects to medications; such as, rash, nausea, headache, vomiting. If you have an oral temperature over 100.4 degrees. If you have any yellowish or greenish drainage from the incisions or notice a foul odor. If you have bleeding from the incisions that is difficult to control with light pressure. If you have loss of feeling or motion. If you have any sign of abscesses, open sores, skin peeling or lumpiness. For Medical Questions, Please Call: , Monday - Monday, 8 a.m. - 5 p.m. After hours or on the weekends call the same number, which will [facility] and ask for the information systems security developer orthopedic provider. Be sure to mention t hat you've had surgery recently. AttachmentsThe following attachments cannot be sent through Care Everywhere.After Your Surg matt: Discharge Instructions (Spanish)documented in this encounter Medications at Time of [...] tablet by | 16 | 0 | 02/29/20 | | | (VITAMIN D3) 55324 | mouth Once a week | tablet [...] + + + +---------+ + + | methocarbamol | Take one tablet | 2 | 0 | 02/07/20 | | | (ROBAXIN) 500 mg | 30-60 minutes prior | tablet | | 19 | 9 | | tabletIndications: | to physical therapy | | | | | | Bilateral | for TMJ | | | | | | temporomandibular | | | | | | | joint pain | | | | | | + + + +---------+ + + | montelukast | Take 1 tablet by | 30 | 11 | 08/07/20 | | | (SINGULAIR) 10 mg | mouth nightly. | tablet | | 18 | 9 | | tablet | | | | | | + + + +---------+ + + | silver | Apply topically to | 50 g | 1 | 03/12/20 | | | sulfADIAZINE | legs for sunburn | | | 19 | 9 | | (SILVADENE) 1% cream | healing daily X 7 | | | | | | | days or until | | | | | | | healed. | | | | | + + + +---------+ + + | traMADol (ULTRAM) | Take 1 tablet by | 30 | 0 | 03/20/20 | | | 50 mg tablet | mouth every 6 hours | tablet | | 19 | 9 | | | as needed. | | [...] | | | | | [place] [address] | | | | | | [phone] | | | | | | | | +--------+ + + + + | 10/30/ | Office | Primary Care | Erika Ernst, | | | 2019 | Visit | | DO [address] | | | | | | [place] [address] | | | | | | [phone] | | | | | | | [...] [place] | | | | | | [address] | | | | | | [phone] | | | | | | | | +--------+ + + + + | 02/09/ | Office | Neurology | Dhara, | | | 2019 | Visit | | [address] | | | | | [address] [place], | | | | | | [place] [address] | | | | | | [phone] | | | | | | | | +--------+ + + + + documented as of this encounter Procedures + +--------+ + + + | Procedure Name | Priori | Date/Time | Associated Diagnosis | Comments | | | ty | | | | + +--------+ + + + | REPAIR TENDON FINGER | | 03/20/2019 | Extensor | | | / HAND | | 9:25 AM | tenosynovitis of | | | | | PDT | right wrist | | + +--------+ + + + | HCG, SERUM, QUANT | Routin | 03/20/2019 | | Results for this | | | e | 8:30 AM | | procedure are in the | | | | PDT | | results section. | + +--------+ + + + documented in this encounter Results HCG, Serum, Quant (03/20/2019 8:30 AM PDT) + +-------+ + + + | Component | Value | Ref Range | Performed | Pathologist | | | | | At | Signature | + +-------+ + + + | hCG Quant, | <2 | mIU/mL | [place] | | | Serum | | | [facility] | | | [...] + + | [place] [facility] | [address] | [place] [address] | [phone] | | [facility] | | | | + + + + + documented in this encounter Visit Diagnoses Not on filedocumented in this encounter Administered Medications + +--------+---------+------+------+------+ | Medication Order | MAR | Action | Dose | Rate | Site | | | Action | Date | | | | + +--------+---------+------+------+------+ + +---+ | albuterol 2.5 mg/3 mL nebulizer | | | solution 2.5 mg 2.5 mg, | | | Nebulization, ONCE PRN, Wheezing, | | | Starting Mon03/20/19 at 1022, | | | For 1 dose, Notify anesthesia if | | | patient is wheezing and does not | | | have a history of asthma or COPD | | | or current smoking., | | | Recovery/Phase I | | + +---+ | | | + +---+ | ePHEDrine 50 mg/mL injection | | | 5-10 mg 5-10 mg, Intravenous, | | | EVERY 5 MIN PRN, if SBP <85, | | | Starting Mon03/20/19 at 1022, | | | Hold if HR > 100. Maximum total | | | dose 20mg., Recovery/Phase I | | + +---+ | | | + +---+ + +-------+ +--------+---+---+ | fentaNYL (PF) injection 25-50 | Given | 03/20/20 | 25 mcg | | | | mcg 25-50 mcg, Intravenous, | | 19 11:00 | | | | | EVERY 5 MIN PRN, Pain, Initial | | AM PDT | | | | | postop urgent pain or escalating | | | | | | | pain, Starting Mon03/20/19 at | | | | | | | 1022, Recovery/Phase I | | | | | | + +-------+ +--------+---+---+ + +---+ | | | + +---+ | glycopyrrolate (ROBINUL) | | | injection 0.2 mg 0.2 mg, | | | Intravenous, PRN, Bradycardia, | | | For HR <45, Starting 03/20/19 | | | at 1022, For 2 doses, May repeat | | | one time after 1min, | | | Recovery/Phase I | | + +---+ | | | + +---+ | hydrALAZINE (APRESOLINE) | | | injection 5-10 mg 5-10 mg, | | | Intravenous, EVERY 20 MINUTES | | | PRN, For SBP > 180 or DBP > 110, | | | Starting 03/20/19 at 1022, | | | Hold if HR > 100. Maximum total | | | dose 20 mg. Use labetalol first | | | if available., Recovery/Phase I | | + +---+ | | | + +---+ | HYDROmorphone (DILAUDID) | | | injection 0.2-0.6 mg 0.2-0.6 mg, | | | Intravenous, EVERY 10 MIN PRN, | | | Severe Pain, Monitor VS carefully | | | with dosing, Starting Wed | | | 03/20/19 at 1022, Recovery/Phase I | | + +---+ | | | + +---+ | labetalol (TRANDATE) 5 mg/mL | | | injection 5-10 mg 5-10 mg, | | | Intravenous, EVERY 5 MIN PRN, For | | | SBP > 180, DBP > 100, Starting | | | Mon03/20/19 at 1022, Hold if HR < | | | 55. Maximum total dose 100mg. | | | Notify anesthesia if patient | | | requires more than 50mg., | | | Recovery/Phase I | | + +---+ | | | + +---+ + +---------+ +--------+-------+---+ | lactated ringers (LR) infusion | New Bag | 03/20/20 | 1,000 | 100 | | | at 10-100 mL/hr, Intravenous, | | 19 8:49 | mLs | mL/hr | | | CONTINUOUS, Starting 03/20/19 | | AM PDT | | | | | at 0845, TKO, Pre-op | | | | | | + +---------+ +--------+-------+---+ + +---+ | | | + +---+ | meperidine (DEMEROL) injection | | | 12.5-25 mg 12.5-25 mg, | | | Intravenous, PRN, Shivering, | | | Starting 03/20/19 at 1022, For | | | 2 doses, May Repeat once in 5 | | | min., Recovery/Phase I | | + +---+ | | | + +---+ | ondansetron (ZOFRAN) injection | | | 4 mg 4 mg, Intravenous, ONCE | | | PRN, Nausea, Starting 03/20/19 | | | at 1022, For 1 dose, | | | Recovery/Phase I | | + +---+ | | | + +---+ | promethazine (PHENERGAN) (IV | | | ONLY) injection 6.25-12.5 mg | | | 6.25-12.5 mg, Intravenous, EVERY | | | 15 MIN PRN, Nausea, Vomiting, Max | | | 25 mg, Starting 03/20/19 at | | | 1022, TAKE PRECAUTIONS WHEN | | | ADMINISTERING Dilute to 10-20mL | | | with NS. Give over 2-3 minutes | | | into large vein. Use ondansetron | | | first if both are ordered., | | | Recovery/Phase I | | + +---+ | | | + +---+ documented in this encounter"
--- OUTSIDE RECORDS SUMMARY | ~2019-09-30 | XMS | Encounter Summary ---
Demographics + + + | Address | [address] | | | [place] [address] | + + + | Home Phone [...] Team Providers + +------+ + | Care Shift Foreman Name | Role | Phone | + [...] + + + + | 02/26/ | Telephone | [place] [facility] | Erika Ernst, | Lab Results | | 2019 | [facility] | DO [address] | | | | | [facility] [address] | [place] [address] | | | | | [address] [place], | [phone] | | | | | [place] [address] | | | | | | [phone] | | | +--------+ + + + [...] | | | | | [place] [address] | | | | | | [phone] | | | | | | | | +--------+ + + + + | 10/30/ | Office | Primary Care | Erika Ernst, | | | 2019 | Visit | | DO [address] [place] [address] | | | | | | [place] [address] | | | | | | [phone] | | | | | | | [...] [place] | | | | | | [address] | | | | | | [phone] | | | | | | | | +--------+ + + + + | 02/09/ | Office | Neurology | Dhara, | | | 2019 | Visit | | [address] | [address] [place], | | | | | | [place] [address] | | | | | | [phone] | | | | | | | | +--------+ + + + + documented as of this encounter Visit Diagnoses Not on filedocumented in this encounter"
--- OUTSIDE RECORDS SUMMARY | ~2019-09-30 | XMS | Encounter Summary ---
Demographics + + + | Address | [address] | | | [place] [address] | + + + | Home Phone | | + + + | Preferred Language | Unknown | + + + | Marital Status | Single | + + + | Rastafarian Affiliation | Unknown | + + + [...] Team Providers + +------+ + | Care Motor Racer Name | Role | Phone | + +------+ + PCP | Unavailable | + +------+ + Encounter Details +--------+ + + + + | Date | Type | Department | Care Team | Description | +--------+ + + + + | 01/22/ | Hospital | [place] [facility] | Ezequiel Mahajan | | | 2014 | Encounter | [facility] | MD [address] | | | | | [address] | [address]EN | | | | | [place] | [place], [place] [address] | | | | | [address] | [phone] | | | | | [phone] | | | +--------+ + + + [...] 10/01/ | Office | Primary Care | Erkia Ernst, | | | 2019 | Visit | | DO [address] | | | | | | [place] [address] | | | | | | [phone] | | | | | | | | +--------+ + + + + | 10/30/ | Office | Primary Care | Erika Ernst, | | | 2019 | Visit | | DO [address] | | | | | | [place] [address] | | | | | | [phone] | | | | | | | [...] [place] | | | | | | [address] | | | | | | [phone] | | | | | | | | +--------+ + + + + | 02/09/ | Office | Neurology | Dhara, | | | 2019 | Visit | | Cody, [address] | | | | | | 4TH [facility], | | | | | | [place] [address] | | | | | | [phone] | | | | | | | | +--------+ + + + + documented as of this encounter Procedures + +--------+ + + + | Procedure Name | Priori | Date/Time | Associated Diagnosis | Comments | | | ty | | | | + +--------+ + + + | XR FOOT RIGHT 3 + VW | Routin | 01/22/2015 | | Results for this | | | e | 4:42 PM | | procedure are in the | | | | PDT | | results section. | + +--------+ + + + | XR ANKLE RIGHT 3 + | Routin | 01/22/2015 | | Results for this | | VW | e | 4:42 PM | | procedure are in the | | | | PDT | | results section. | + +--------+ + + + documented in this encounter Results XR Ankle Right 3 + Vw (01/22/2015 4:42 PM PDT) + + | Specimen | + + | | + + + + + | Narrative | Performed At | + + + | ORIGINAL HISTORY: Abnormal right foot. RIGHT | | | ANKLE X-RAYS: Three views. The ankle mortise joint is normal. | | | No fracture or other bone abnormality is seen. CONCLUSION: | | | Normal right ankle x-rays. JOB #: [id number] | | | Read By: BARRON YING MD Released By: BARRON YING MD | | | Date: 01/22/2015 20:18 | | + + + + + | Procedure Note | + + | Mitchel, Rad Results In - 08/09/2017 7:07 PM PST | | ORIGINAL | | | | | | | | HISTORY: | | Abnormal right foot. | | | | RIGHT ANKLE X-RAYS: | | | | Three views. | | | | The ankle mortise joint is normal. No fracture or other bone abnormality is seen. | | | | CONCLUSION: | | Normal right ankle x-rays. | | | | | | JOB #: [id number] | | | | Read By: BARRON YING MD | | | | Released By: BARRON YING MD | | Date: 01/22/2015 20:18 | | | | | + + XR Foot Right 3 + Vw (01/22/2015 4:42 PM PDT) + + | Specimen | + + | | + + + + + | Narrative | Performed At | + + + | ORIGINAL HISTORY: Abnormal right foot. RIGHT | | | FOOT X-RAYS: Weightbearing views are obtained. COMPARISON: | | | 04/06/2014. 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 | | | Also again noted is a 3 mm benign-appearing cyst involving the | | | distal fifth metatarsal. No acute abnormality is noted. | | | CONCLUSION: No acute abnormality is identified. No interval change. | | | JOB #: [id number] Read By: BARRON Narayanan | | | MD DEONNA Released By: BARRON YING MD Date: | | | 01/22/2015 20:18 | | + + + + + | Procedure Note | + + | Yoni Grullon Results In - 08/09/2017 7:07 PM PST ORIGINAL HISTORY:Abnormal right | | foot. RIGHT FOOT X-RAYS: Weightbearing views are obtained. COMPARISON:04/06/2014. 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 Also again noted is a 3 mm | | benign-appearing cyst involving the distal fifth metatarsal. No acute abnormality is | | noted. CONCLUSION:No acute abnormality is identified. No interval change. D: | | 01/22/2015JOB #: [id number] Read By: BARRON YING MD Released By: BARRON Narayanan | | CECILY YINGate: 01/22/2015 20:18 | |RIGHT FOOT X-RAYS: | | | |Weightbearing views are obtained. | | | |COMPARISON: | |04/06/2014. 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 Also again noted is a 3 mm benign-a ppearing cyst involving the distal fifth metatarsal. No acute abnormality is noted. | | | |CONCLUSION: | |No acute abnormality is identified. No interval change. | | | | | |JOB #: [id number] | | | |Read By: BARRON YING MD | | | |Released By: BARRON YING MD | |Date: 01/22/2015 20:18 | | | | | + + documented in this encounter Visit Diagnoses Not on filedocumented in this encounter"
--- OUTSIDE RECORDS SUMMARY | ~2019-09-30 | XMS | Encounter Summary ---
Demographics + + + | Address | [address] | | | [place] [address] | + + + | Home Phone [...] + + + | Author | [facility] | | | and [place] | + + + | Organization | [facility] | | | and [...] Team Providers + +------+ + | Care Therapist Occupational Name | Role | Phone | + [...] | Surgery | Injury of | Erika Salter, DO | Rei Adan, | | | Required | | right hand, | [address] | [address] | | | | | subsequent | [place], | [address] | | | | | encounter | [place] [address] | [place], [place] | | | | | | Phone: | [phone] Phone: | | | | | | [phone] | [phone] | | | | | | Fax: | Fax: | | | | | | [phone] | [phone] | + + + + + + + Encounter Details +--------+ + + + + | Date | Type | Department | Care Team | Description | +--------+ + + + + | 08/21/ | Orders Only | [place] [facility] | Erika Ernst, | Injury of right | | 2019 | | [facility] | DO [address] | hand, subsequent | | | | [facility] [address] | [place] [address] | encounter (Primary | | | | [address] [place], | [phone] | Dx) | | | | [place] [address] | | | | | | [phone] | | | +--------+ + + + [...] | | 2018 | Visit | | [address] | | | | | | [place] [address] | | | | | | [phone] | | | | | | | | +--------+ + + + + | 10/30/ | Office | Primary Care | Erika Ernst, | | | 2019 | Visit | | DO [address] | | | | | | [place] [address] | | | | | | [phone] | | | | | | | [...] [place] | | | | | | [address] | | | | | | [phone] | | | | | | | | +--------+ + + + + | 02/09/ | Office | Neurology | Dhara, | | | 2019 | Visit | | DWAINE Ross [address] | | | | [address] [place], | | | | | | [place] [address] | | | | | | [phone] | | | | | | | | +--------+ + + + + + + +--------+ + + | Name | Type | Priori | Associated Diagnoses | Order Schedule | | | | ty | | | + + +--------+ + + | Orthopedic Surgery, | Outpatient | Routin | Injury of right | Ordered: 08/21/2019 | | External - AMB | Referral [...]
--- OUTSIDE RECORDS SUMMARY | ~2019-09-30 | XMS | Encounter Summary ---
Demographics + + + | Address | [address] | | | [place] [address] | + + + | Home Phone [...] Team Providers + +------+ + | Care Rail Transit Operator Name | Role | Phone | + +------+ + | Erika Ernst DO | PCP | | + +------+ + Reason for Visit + + + | Reason | Comments | + + + | Hypertension | | + + + Encounter Details +--------+---------+ + + + | Date | Type | Department | Care Team | Description | +--------+---------+ + + + | 04/02/ | Office | [facility] [facility] | Erika Ernst, | Essential | | 2018 | Visit | [facility] | DO [address] | hypertension | | | | [facility] [address] | [place] [address] | (Primary Dx); | | | [address] [place], | [phone] | Environmental | | | | [place] [address] | | allergies; Vitamin D | | | | [phone] | | deficiency | +--------+---------+ + + + Social History [...] + + + | Blood Pressure | 140/82 | 04/02/2018 1:08 PM | | | | | PDT | | + + + + + | Pulse | 79 | 04/02/2018 1:08 PM | | | | | PDT | | + + + + + | Temperature | - | - | | + + + + + | Respiratory Rate | 16 | 04/02/2018 1:08 PM | | | | | PDT | | + + + + + | Oxygen Saturation | 94% | 04/02/2018 1:08 PM | | | | | PDT | | + + + + + | Inhaled Oxygen | - | - | | | Concentration | | | | + + + + + | Weight | 172.4 kg (380 lb) | 04/02/2018 1:08 PM | | | | | PDT | | + + + + + | Height | 177.8 cm (5' 10") | 04/02/2018 1:08 PM | | | | | PDT | | + + + + + | Body Mass Index | 54.52 | 04/02/2018 1:08 PM | | | | | PDT | | + + + + + documented in this encounter Progress Notes Erika Ernst DO - 04/02/2018 1:00 PM PDTFormatting of this note might be different fro m the original. Subjective: Patient ID: Andrea Suh is a 27 y.o. female. Here to FU on HTN. BP is good today but she has a dry hacky cough that may be from the lis inopril. She does have environmental allergies that may be the cause. She is taking a allerg y med daily. No fevers, ST or ear pain. States throat scratchy in the AM. We will change the BP med incase this is causing the cough. She is still working on diet improvement and has e liminated sugar in her diet. She started her vitamin D for replacement therapy and we will c heck level again at the 4 month time. Review of Systems Constitutional: Negative. HENT: Negative. Eyes: Negative. Respiratory: Positive for cough. Cardiovascular: Negative. Gastrointestinal: Negative. Allergic/Immunologic: Positive for environmental allergies. Psychiatric/Behavioral: Negative. Social History Social History Marital [...] Tape Rash Outpatient Encounter Prescriptions as of 04/02/2018 Medication Sig Dispense Refill amLODIPine (NORVASC) 5 mg tablet Take 1 tablet by mouth Daily. 30 tablet 11 [DISCONTINUED] azithromycin (ZITHROMAX) 250 mg tablet Take 2 tablets by mouth on day 1, and 1 tablet by mouth every day 6 tablet 0 Cholecalciferol (VITAMIN D3) 66529 units TABS Take 1 tablet by mouth Once a week for 16 doses. 16 tablet 0 ferrous sulfate 325 mg tablet Take by mouth. fexofenadine (JOSÉ ANTONIO ALLERGY) 180 mg tablet Take by mouth. [DISCONTINUED] guaiFENesin-codeine (ROBITUSSIN AC) 100-10 mg/5 mL liquid Take 5-10 mLs by mouth every 6 hours as needed for Cough. 120 mL 1 ipratropium (ATROVENT HFA) 17 mcg/puff inhaler Inhale into the lungs. levothyroxine (SYNTHROID) 75 MCG tablet Take by mouth. [DISCONTINUED] lisinopril (PRINIVIL, ZESTRIL) 20 mg tablet Take 1 tablet by mouth Daily . 30 tablet 11 montelukast (SINGULAIR) 10 mg tablet Take by mouth. traMADol (ULTRAM) 50 mg tablet Take 1 tablet by mouth every 8 hours as needed. 30 table t 0 VENTOLIN HFA 108 (90 Base) MCG/ACT inhaler INSTILL 2 PUFFS BY MOUTH EVERY 4 TO 6 HOURS NEEDED 18 g 11 No facility-administered encounter medications on file as of 04/02/2018. Objective: BP 140/82 | Pulse 79 | Resp 16 | Ht 1.778 m (5' 10") | Wt (!) 172.4 kg (380 lb) | LMP (LMP Unknown) | SpO2 94% | ? No | BMI 54.52 kg/m Physical Exam Constitutional: She is oriented to person, place, and time. She appears well-developed and well-nourished. No distress. HENT: Head: Normocephalic. Mouth/Throat: Oropharynx is clear and moist. No oropharyngeal exudate. Bilateral TM's clear Eyes: Conjunctivae and EOM [...] mood and affect. Her behavior is normal. Thought content norm al. Assessment: 1. Essential hypertension 2. Environmental allergies 3. Vitamin D deficiency Plan: DC the lisinopril and start Norvasc 5 mg daily. She will continue her OTC allergy med and t he Vitamin D replacement. She will continue her diet efforts. documented in this en counter Plan of Treatment +--------+ + + + + | Date | Type | Specialty | Care Team | Description | +--------+ + + + + | 10/01/ | Office | Primary Care | Erika Ernst, | | | 2018 | Visit | | DO [address] | | | | | | [place] [address] | | | | | | [phone] | | | | | | | | +--------+ + + + + | 10/30/ | Office | Primary Care | Erika Ernst, | | | 2019 | Visit | | DO [address] | | | | | | [place] [address] | | | | | | [phone] | | | | | | | [...] [place] | | | | | | [address] | | | | | | [phone] | | | | | | | | +--------+ + + + + | 05/11/ | Office | Neurology | Dhara, | | | 2019 | Visit | | Cody TECHNICAL SALES SUPPORT MANAGER [address] | | | | | | [address] [facility] [place], | | | | | | [place] [address] | | | | | | [phone] | | | | | | | | +--------+ + + + + documented as of this encounter Visit Diagnoses + + | Diagnosis | + + | Essential hypertension - Primary Unspecified essential hypertension | + + | Environmental allergies Allergic rhinitis, cause unspecified | + + | Vitamin D deficiency Unspecified vitamin D deficiency | + + documented in this encounter
--- OUTSIDE RECORDS SUMMARY | ~2019-09-30 | XMS | Encounter Summary ---
Demographics + + + | Address | [address] | | | [place] [address] | + + + | Home Phone [...] Providers + +------+ + | Care Computer Service Technician Name | Role | Phone | [...] | [facility] [address] | [place] [address] | | | | [address] [place], | [phone] | | | | | [place] [address] | | | | | | [phone] | | | +--------+ + + + [...] | | | | | [place] [address] | | | | | | [phone] | | | | | | | | +--------+ + + + + | 10/30/ | Office | Primary Care | Erika Ernst, | | | 2019 | Visit | | DO [address] [place] [address] | | | | | | [place] [address] | | | | | | [phone] | | | | | | | [...] [place] | | | | | | [address] | | | | | | [phone] | | | | | | | | +--------+ + + + + | 02/09/ | Office | Neurology | Dhara, | | | 2019 | Visit | | DWA[address] | | | | | [address] [place], | | | | | | [place] [address] | | | | | | [phone] | | | | | | | | +--------+ + + + + documented as of this encounter Visit Diagnoses Not on filedocumented in this encounter"
--- OUTSIDE RECORDS SUMMARY | ~2019-09-30 | XMS | Encounter Summary ---
Demographics + + + | Address | [address] | | | [place] [address] | + + + | Home Phone [...] Team Providers + +------+ + | Care Airline Radio Operator Name | Role | Phone | [...] Description | +--------+--------+ + + + | 10/31/ | Refill | [place] [facility] | Veronica Huerta, | Medication Refill | | 2018 | | [facility] | [employer] | | | | | [facility]ICAL [facility] [address] | | | | | | [address] [place], | | | | | | [place] [address] | | | | | | [phone] | | | +--------+--------+ + + + [...] 2019 | Visit | | DO [address] | | | | | | [place] [address] | | | | | | [phone] | | | | | | | | +--------+ + + + + | 01/29/ | Office | Primary Care | Erika Ernst, | | | 2019 | Visit | | DO [address] | | | | | | [place] [address] | | | | | | [phone] | | | | | | | [...] [place] | | | | | | [address] | | | | | | [phone] | | | | | | | | +--------+ + + + + | 02/09/ | Office | Neurology | Dhara, | | | 2019 | Visit | | [address]WA[address] | | | | | | [address] [place], | | | | | | [place] [address] | | | | | | [phone] | | | | | | | | +--------+ + + + + documented as of this encounter Visit Diagnoses + + | Diagnosis | + + | Depression, unspecified depression type | + + documented in this encounter"
--- OUTSIDE RECORDS SUMMARY | ~2019-09-30 | XMS | Encounter Summary ---
Demographics + + + | Address | [address] | | | [place] [address] | + + + | Home Phone [...] Team Providers + +------+ + | Care Retail Security Professional Name | Role | Phone | + +------+ + PCP | Unavailable | + +------+ + Encounter Details +--------+ + + + + | Date | Type | Department | Care Team | Description | +--------+ + + + + | 05/22/ | [facility] | Spenser Roberts NP | | | 2015 | Encounter | [facility] | [address], | | | | | MEDICAL CL[facility] [address] | [place] [address] | | | | | [address] [facility], | [phone] | | | | | [place] [address] | | | | | | [phone] | | | +--------+ + + + [...] | | | | | [place] [address] | | | | | | [phone] | | | | | | | | +--------+ + + + + | 10/30/ | Office | Primary Care | Erika Ernst, | | | 2019 | Visit | | DO [address] | | | | | | [place] [address] | | | | | | [phone] | | | | | | | | +--------+ + + + + | 11/07/ | Appointment | Nutrition | Janel Webster | | | 2019 | | | [place] | | +--------+ + + + + | 11/28/ | Office | Otolaryngology | Anthony Alvarado MD | | 2019 | Visit | | [address] | | | | | | [place], [place] | | | | | | [address] | | | | | | [phone] | | | | | | | | +--------+ + + + + | 02/09/ | Office | Neurology | Dhara, | | | 2020 | Visit | | [address] | | | | | [address] [place], | | | | | | [place] [address] | | | | | | [phone] | | | | | | | | +--------+ + + + + documented as of this encounter Visit Diagnoses Not on filedocumented in this encounter"
--- OUTSIDE RECORDS SUMMARY | ~2019-09-30 | XMS | Encounter Summary ---
Demographics + + + | Address | [address] | | | [place] [address] | + + + | Home Phone [...] Providers + +------+ + | Care Environmental Law Professor Name | Role | Phone | + +------+ + PCP | Unavailable | + +------+ + Encounter Details +--------+ + + + + | Date | Type | Department | Care Team | Description | +--------+ + + + + | 04/08/ | Hospital | [facility] | Camille Bush | | | 2017 | Encounter | [facility] | [address]ENZ[address] | | | | | [facility] [address] | [address] [facility], | | | | | [address]TH [facility], | [place] [address] | | | | | [place] [address] | [phone] | | | | | [phone] | | | +--------+ + + + [...] | | | | | [place] [address] | | | | | | [phone] | | | | | | | | +--------+ + + + + | 10/30/ | Office | Primary Care | Erika Ernst, | | | 2019 | Visit | | DO [address] | | | | | | [place] [address] | | | | | | [phone] | | | | | | | [...] [place] | | | | | | [address] | | | | | | [phone] | | | | | | | | +--------+ + + + + | 02/09/ | Office | Neurology | Dhara, | | | 2020 | Visit | | DWAINE Ross [address] | | | | | | [address] [place], | | | | | | [place] [address] | | | | | | [phone] | | | | | | | | +--------+ + + + + documented as of this encounter Visit Diagnoses Not on filedocumented in this encounter"
--- OUTSIDE RECORDS SUMMARY | ~2019-09-30 | XMS | Encounter Summary ---
Demographics + + + | Address | [address] | | | [place] [address] | + + + | Home Phone | | + + + | Preferred Language | Unknown | + + + | Marital Status | Single | + + + | Latter-Day Affiliation | Unknown | + + + | Race | Unknown | + + + | Ethnic Group | Unknown | + + + Author + + + | Author | [facility] | | | [...] Team Providers + +------+ + | Care Health Inspector Name | Role | Phone | + +------+ + | Erika Ernst DO | PCP | | + +------+ + Reason for Visit +--------+ + | Reason | Comments | +--------+ + | Cough | | +--------+ + Encounter Details +--------+ + + + + | Date | Type | Department | Care Team | Description | +--------+ + + + + | 08/05/ | Telephone | [place] [facility] | Keith Ernstleslie Salter, | Cough | | 2019 | | [facility] | DO [address] | | | | | MEDICAL CLINIC [address] | [place] [address] | | | | | [address] [place], | [phone] | | | | | [place] [address] | | | | | | [phone] | | | +--------+ + + + [...] | | | | | [place] [address] | | | | | | [phone] | | | | | | | | +--------+ + + + + | 10/30/ | Office | Primary Care | Erika Ernst, | | | 2019 | Visit | | DO [address] | | | | | | [place] [address] | | | | | | [phone] | | | | | | | [...] [place] | | | | | | [address] | | | | | | [phone] | | | | | | | | +--------+ + + + + | 02/09/ | Office | Neurology | Dhara, | | | 2020 | Visit | | [address] | | | | | | [address] [place], | | | | | | [place] [address] | | | | | | [phone] | | | | | | | | +--------+ + + + + documented as of this encounter Visit Diagnoses Not on filedocumented in this encounter"
--- OUTSIDE RECORDS SUMMARY | ~2019-09-30 | XMS | Encounter Summary ---
Demographics + + + | Address | [address] | | | [place] [address] | + + + | Home Phone [...] Team Providers + +------+ + | Care Petroleum Refinery Worker Name | Role | Phone | [...] + + + + | 11/01/ | Clinical | [place] [facility] | KleverErika epps, | | | 2019 | Support | [facility] | DO [address] | | | | | MEDICAL CLINIC [address] | [place] [address] | | | | | [address] [place], | [phone] | | | | | [place] [address] | | | | | | [phone] | | | +--------+ + + + [...] documented as of this encounter Progress Notes Veronica Huerta LPN - 11/01/2018 3:30 PM PSTPt. Came to clinic to ask if she needed an appt to receive her MRI results done today. I have advised that I will call her after PCP nam s received the results and gives her recommendations. Veronica Huerta LPN documented in this en counter Plan of Treatment +--------+ + + + + | Date | Type | Specialty | Care Team | Description | +--------+ + + + + | 10/01/ | Office | Primary Care | Erika Ernst, | | | 2018 | Visit | | DO [address] | | | | | | [place] [address] | | | | | | [phone] | | | | | | | | +--------+ + + + + | 10/30/ | Office | Primary Care | Erika Ernst, | | | 2019 | Visit | | DO [address] [place] [place] [address] | | | | | | [place] [address] | | | | | | [phone] | | | | | | | [...] [place] | | | | | | [address] | | | | | | [phone] | | | | | | | | +--------+ + + + + | 02/09/ | Office | Neurology | Dhara, | | | 2019 | Visit | | [address]WA[address] | | | | | | [address] [place], | | | | | | [place] [address] | | | | | | [phone] | | | | | | | | +--------+ + + + + documented as of this encounter Visit Diagnoses Not on filedocumented in this encounter"
--- OUTSIDE RECORDS SUMMARY | ~2019-09-30 | XMS | Encounter Summary ---
Demographics + + + | Address | [address] | | | [place] [address] | + + + | Home Phone [...] Team Providers + +------+ + | Care Delivery Rep Name | Role | Phone | + [...] Dx); | | 2018 | Visit | [facility] | [address] | Essential | | | | MEDICAL CLINIC [address] | [place] [address] | hypertension; Iron | | | | [address] [place], | [phone] | deficiency; Acute | | | | [place] [address] | | cystitis with | | | | [phone] | | hematuria | +--------+---------+ + + [...] | | | | | [place] [address] | | | | | | [phone] | | | | | | | | +--------+ + + + + | 10/30/ | Office | Primary Care | Erika Ernst, | | | 2019 | Visit | | DO [address] | | | | | | [place] [address] | | | | | | [phone] | | | | | | | [...] [place] | | | | | | [address] | | | | | | [phone] | | | | | | | | +--------+ + + + + | 02/09/ | Office | Neurology | Dhara, | | | 2019 | Visit | | [address] | | | | | | [address] [place], | | | | | | [place] [address] | | | | | | [phone] | | | | | | | | +--------+ + + + + + +------+--------+ + + | Name | Type | Priori | Associated Diagnoses | Order Schedule | | | | ty | | | + +------+--------+ + + | Urinalysis with | Lab | Routin | Acute cystitis | Expected: | | Microscopic with | | e | with hematuria | 10/04/2019, Expires: | | Culture if Indicated | | | | 09/27/2020 | + +------+--------+ + + documented as of this encounter Results Influenza A and B Ag, [place] (09/27/2019 [...] level of antigen in the | [place] [facility] | | sample is below the detection [...] + + | [place] [facility] | [address] | [place] [address] | [phone] | | [facility] | | | | | [...]
--- OUTSIDE RECORDS SUMMARY | ~2019-09-30 | XMS | Encounter Summary ---
Demographics + + + | Address | [address] | | | [place] [address] | + + + | Home Phone | | + + + | Preferred Language | Unknown | + + + | Marital Status | Single | + + + | Episcopal Affiliation | Unknown | + + + [...] Team Providers + +------+ + | Care Rehab Trainer Name | Role | Phone | + +------+ + PCP | Unavailable | + +------+ + Encounter Details +--------+ + + + + | Date | Type | Department | Care Team | Description | +--------+ + + + + | 01/18/ | [facility] | [facility] | Amaya Varner NP | | | 2017 | Encounter | [facility] | [address] | | | | | [facility] [address] | [place], [place] | | | | [address] [place], | [address] | | | | | [place] [address] | [phone] | | | | | [phone] | | | +--------+ + + + [...] | | | | | [place] [address] | | | | | | [phone] | | | | | | | | +--------+ + + + + | 10/30/ | Office | Primary Care | Erika Ernst, | | | 2019 | Visit | | DO [address] | | | | | | [place] [address] | | | | | | [phone] | | | | | | | [...] [place] | | | | | | [address] | | | | | | [phone] | | | | | | | | +--------+ + + + + | 02/09/ | Office | Neurology | Dhara, | | | 2019 | Visit | | [address] | | | | | [address] [place], | | | | | | [place] [address] | | | | | | [phone] | | | | | | | | +--------+ + + + + documented as of this encounter Visit Diagnoses Not on filedocumented in this encounter"
--- OUTSIDE RECORDS SUMMARY | ~2019-09-30 | XMS | Encounter Summary ---
Demographics + + + | Address | [address] | | | [place] [address] | + + + | Home Phone [...] Team Providers + +------+ + | Care Truck Driver Teamster Name | Role | Phone | + +------+ + PCP | Unavailable | + +------+ + Encounter Details +--------+ + + + + | Date | Type | Department | Care Team | Description | +--------+ + + + + | 10/12/ | [facility] | [facility] | Erika Ernst, | | | 2017 | Encounter | [facility] | DO [address] | | | | | MED[facility] [address] | [place] [place] [address] | | | | | [address] [place], | [phone] | | | | | [place] [address] | | | | | | [phone] | | | +--------+ + + + [...] | | | | | [place] [address] | | | | | | [phone] | | | | | | | | +--------+ + + + + | 10/30/ | Office | Primary Care | Erika Ernst, | | | 2019 | Visit | | DO [address] | | | | | | [place] [address] | | | | | | [phone] | | | | | | | [...] [place] | | | | | | [address] | | | | | | [phone] | | | | | | | | +--------+ + + + + | 02/09/ | Office | Neurology | Dhara, | | | 2020 | Visit | | [address] | | | | | [address] [place], | | | | | | [place] [address] | | | | | | [phone] | | | | | | | | +--------+ + + + + documented as of this encounter Visit Diagnoses Not on filedocumented in this encounter"
--- OUTSIDE RECORDS SUMMARY | ~2019-09-30 | XMS | Encounter Summary ---
Demographics + + + | Address | [address] | | | [place] [address] | + + + | Home Phone | | + + + | Preferred Language | Unknown | + + + | Marital Status | Single | + + + | Baptism Affiliation | Unknown | + + + | Race | Unknown | + + + | Ethnic Group | Unknown | + + + Author + + + | Author | [facility] | | | and [place] | + + + | Organization | [facility] | [...] Team Providers + +------+ + | Care Plant Breeder Scientist Name | Role | Phone | + +------+ + | Erika Ernst DO | PCP | | + +------+ + Reason for Visit + + + | Reason | Comments | + + + | Initial Assessment | | + + + Evaluate & [...] | | | of left | [place] [address] | [place] [address] | | | | | ankle, | Phone: | Phone: | | | | | initial | [phone] | [phone] | | | | | encounter | Fax: | Fax: | | | | | Procedures | [phone] | [phone] | | | | | PT EVAL AND | | | | | | | TREAT | | | +--------+ + + + + + Encounter Details +--------+ + + + + | Date | Type | Department | Care Team | Description | +--------+ + + + + | 07/05/ | Hospital | [place] [facility] | Erika Ernst, | Sprain of | | 2017 | Encounter | HOSPITAL TH[facility] PT | DO [address] | calcaneofibular | | | | [address] [place] | [place] [address] | ligament of left | | | | [place], [place] | [phone] | ankle, initial | | | | [address] | | encounter | | | | [phone] | Nick Barrios I, PT | | [...] Progress Notes Nick Barrios I, PT - 07/05/2018 6:02 PM PDTFormatting of this note might be different hannah tan the original. Physical Therapy Plan of Care Date: 07/05/2018 Patient Name: Andrea Suh Date of : 1990 Encounter Diagnoses Code Name Primary? S93.412A Sprain of calcaneofibular ligament of left ankle, initial encounter Date of Onset: 06/11/2018 Start of Care Date: 07/05/2018 Requested # of Visits: 10 visits 2x/week for 5 weeks Certification From: 07/05/2018 Certification To: 08/09/2018 Clinical Impression: PT evaluation 07/05/18: 28 y/o female patient presents to physical the rapy with diagnosis of sprain of calcaneofibular ligament of L ankle and complaints of later al and medial ankle pain during ambulation as well as limitations in standing and walking to lerance. Evaluation reveals swelling of L lateral ankle, limited L ankle ROM, L ankle weakne ss, B hip weakness, and gait abnormalities. Patient would benefit from skilled physical design engineer apy in order to address noted deficits and allow for return to prior level of function. Son iers to improving with physical therapy include upcoming R hand surgery and current symptoms of constant deep, aching pain of R distal thigh following fall that lead to L ankle injury. Goals: Patient Reported Outcome Goals Patient Reported Outcome Goals: LEFS Lower Extremity Functional Scale Goal: 75 Lower Extremity Functional Scale Goal Status: 49 OP PT Goals OP PT Goals: Goal 1, Goal 2, Goal 3, Goal 4 Goal 1: Patient will demonstrate I with HEP for 3 consecutive weeks in order to improve fun ctional outcomes with physical therapy. Goal 1 Status: Ongoing; provided with first installment of HEP today Goal 2: Patient will improve L ankle ROM equal to or greater than R ankle Goal 2 Status: Ongoing. Goal 3: Patient will tolerate walking for 1 mile without taking breaks due to pain to retur n to previous level of activity. Goal 3 Status: Ongoing; patient reports being able to ambulate about .5 miles. Goal 4: Patient will experience reduced L ankle pain of 1/10 or less for 2 consecutive week s in order to return to previous level of activity. Goal 4 Status: Ongoing; pain rated at 4/10 currently. Treatment Plan/Interventions PT EvaluationPT Re-[id number] - Therapeutic Zlpdrrhf78168 - Neuromuscular Reeducation9 7116 - Gait Pwfuvzfm60217 - Therapeutic Qrdkvgnjaq42317 - Manual Bqbfgpo78711 - Self Care/Ho me Olqrnqzudl48207 - Group Therapeutic Teqowhcbqj85486 - Aquatic Therapy/Qktukbrfq81562 - Io jzsmtbpjyus77873 - TENS Application/Jlaiwvkgwam06001 - Electrical Stimulation, Ykemeerrld416 35 - Ultrasound Electronically signed by: Nick Barrios PT, 07/05/2018 18:02 Patient Name: Andrea Suh/: 1990/ oseph, Nick Szymanski, PT - 07/05/2018 4:08 PM PDT [facility] THERAP[facility] PT [address] [place] [address] Physical Therapy Initial Assessment Date: 07/05/2018 Patient Information Patient Name: Andrea Suh Date of : 1990 Age: 28 y.o. History Problem Sprain of Calcaneofibular Ligament of Left Ankle, Initial Encounter Mechanism of injury: Trauma, patient slipped/turned her L ankle and fell on it. History of symptoms: Patient reports injuring her L ankle on 05/31/18 when she slipped and r olled her L ankle and then fell on it while walking outside. Current pain symptoms rated at 4/10 located on lateral and medial L ankle by malleoli. Pain is worsened by L ankle inversio n, moving in bed in certain position, and prolonged standing; pain reaches highs of 6/10. Pa in is improved by wearing "air cast", taking prescribed medication naproxine, and icing at n ight. Patient also states that she is having R knee pain following fall, pain in unrelenting and described as a deep ache. Previous level of function and limitations: Patient was unlimited in activities involving u se of lower extremities. Current level of function and limitations: Standing for long periods of time, walking far d istances; able to walk about half a mile before L ankle pain limits walking tolerance, hikin g. 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 Living situation: Lives alone in second floor apartment Social History Social History Marital status: Single Spouse name: N/A Number of children: N/A Years of education: N/A Social History Main Topics Smoking status: Never Smoker Smokeless tobacco: Never Used Alcohol use No Drug use: No Sexual activity: Yes control/ protection: Condom Other Topics Concern Not on file Social History Narrative No narrative on file Encounter Diagnoses Code Name Primary? S93.412A Sprain of calcaneofibular ligament of left ankle, initial encounter Date of Onset: 06/11/2018 Referring Provider: Erika Ernst DO No history on file. Past Medical History: Diagnosis Date Allergic rhinitis Anemia Asthma Dysmenorrhea Hypertension Hypothyroid Iron deficiency Obesity ALVAREZ (obstructive sleep apnea) TMJ pain dysfunction syndrome Past Surgical History: Procedure Laterality Date EYE SURGERY RIGHT KIDNER PROCEDURE 01/20/2016 Surgeon: Fani Mahajan MD; Location: [facility] TONSILLECTOMY WISDOM TOOTH EXTRACTION Family History Problem Relation Age of Onset Other (see comment) Mother gallbladder disease Hypertension Father Other (see comment) Father arrhymthmia Breast cancer Sister Cervical cancer Maternal Grandmother Heart attack Maternal Aunt [place] Developmental History Allergies Allergen Reactions Escitalopram Palpitations Latex Rash Hydrocodone Hives Uncoded Nonscreenable Allergen Other (See Comments) Other reaction(s): Proclivity to C-diff with certain antibiotics Adhesive & Tape Rash Prior Treatment: Patient denies previous treatment for this condition. Objective Pain Assessment: Pain Rating Pre Assessment: 4 Pain Rating Post Assessment: 4 Location: L lateral and medial ankle by malleoli Standardized Tests: Lower Extremity Functional Scale (LEFS) Any of your usual work, housework or school activities: 3 - A little bit of difficulty Your usual hobbies, recreational or sporting activities: 1 - Quite a bit of difficulty Getting into or out of the bath: 4 - No difficulty Walking between rooms: 3 - A little bit of difficulty Putting on your shoes or socks: 4 - No difficulty Squattin - No difficulty Lifting an object, like a bag of groceries from the floor: 4 - No difficulty Performing light activities around your home: 4 - No difficulty Performing heavy activities around your home: 4 - No difficulty Getting into or out of a car: 3 - A little bit of difficulty Walking 2 blocks: 2 - Moderate difficulty Walking a mile: 2 - Moderate difficulty Going up or down 10 stairs (about 1 flight of stairs): 2 - Moderate difficulty Standing for 1 hour: 1 - Quite a bit of difficulty Sitting for 1 hour: 4 - No difficulty Running on even ground: 1 - Quite a bit of difficulty Running on uneven ground: 0 - Extreme difficulty or unable to perform activity Making sharp turns while running fast: 0 - Extreme difficulty or unable to perform activity Hoppin - Quite a bit of difficulty Rolling over in bed: 2 - Moderate difficulty Lower Extremity Functional Scale Score (Calculated): 49 Lower Extremity Functional Scale Goal: 75 Lower Extremity Functional Scale Goal Status: 49 Range of Motion (measured in degrees): LLE AROM (degrees) L Hip Flexion 0-125: WFL L Hip Extension 0-30: WFL L Hip External Rot 0-50: WFL L Hip Internal Rot 0-40: WFL L Knee Flexion 0-140: WFL L Knee Extension 0-130: WNL L Ankle Dorsiflexion 0-20: 0 degrees L Ankle Plantar Flexion 0-45: 43 degrees L Ankle Inversion 0-45: 14 degrees L Ankle Eversion 0-25 : 15 degrees RLE AROM (degrees) R Hip Flexion 0-125: WNL R Hip Extension 0-30: WFL R Hip External Rot 0-50: WFL R Hip Internal Rot 0-40: WFL R Knee Flexion 0-140: WFL R Knee Extension 0-130: WNL R Ankle Dorsiflexion 0-20: 5 degrees R Ankle Plantar Flexion 0-45: 55 degrees R Ankle Inversion 0-45: 30 degrees R Ankle Eversion 0-25 : 18 degrees Strength: LLE Strength L Hip Flexion: 4+/5 [...] Right External Rotation: 4+/5 good plus, right Sleep: Patient reports disruptive sleep due to pain symptoms averaging 5.5 to 6 hours per n ight. Palpation: Patient demonstrates tenderness and pain to palpation of L lateral ankle. Swelling: Visible swelling in L lateral ankle when compared to R lateral ankle. Circumferen tial measurement in line with both malleoli R: 31 cm; L: 32 cm Dermatomes: Normal sensation to light touch in B LE dermatome areas. Mobility: Gait Gait Comments: Patient demonstrates B waddling, excessive upper and lower trunk rotation, a nd B knee genuvalgum during ambulation. Level of [place]: independent Additional Documentation: deviations Gait Deviations: stride width increased, other (see comments) Today's Treatment Patient Name: Andrea Steeleit/: 1990/ Start Time: 160 Stop time: 165 Duration: 47 minutes Timed Treatment Codes: 10 minutes # of PT Visits: 1 Visit Summary: See eval Next Visit Information: Assess response to HEP, assess SLS, progress ankle ROM exercises, i nitial low level PRE with red TB Therapy Interventions HEP: Ankle pumps 3x10 progressing to 20 repetitions 1x/day // ankle circles 3x10 progressin g to 20 repetitions each direction 1x/day PT Interventions: Intervention #1 PT INTERVENTION 1: TE - (10 minutes) Ankle pumps 2x10 // ankle circles 2x10 each direction // additional time required for patient education regarding plan of care going forward, purp ose of exercises, and importance of compliance with HEP Assessment PT evaluation 07/05/18: 28 y/o female patient [...] fall that lead to L ankle injury. Rehabilitation potential: Patient demonstrates good potential to achieve established goals and good potential to achieve prior status to address the documented impairments by particip ating in skilled physical therapy services. Goals: Patient Reported Outcome Goals Patient Reported Outcome Goals: LEFS Lower Extremity Functional Scale Goal: 75 Lower Extremity Functional Scale Goal Status: 49 OP PT Goals OP PT Goals: Goal 1, Goal 2, Goal 3, Goal 4 Goal 1: Patient will demonstrate I with HEP for 3 consecutive weeks in order to improve fun ctional outcomes with physical therapy. Goal 1 Status: Ongoing; provided with first installment of HEP today Goal 2: Patient will improve L ankle ROM equal to or greater than R ankle Goal 2 Status: Ongoing. Goal 3: Patient will tolerate walking for 1 mile without taking breaks due to pain to retur n to previous level of activity. Goal 3 Status: Ongoing; patient reports being able to ambulate about .5 miles. Goal 4: Patient will experience reduced L ankle pain of 1/10 or less for 2 consecutive week s in order to return to previous level of activity. Goal 4 Status: Ongoing; pain rated at 4/10 currently. Plan Date of Onset: 06/11/2018 Start of Care Date: 07/05/2018 Requested # of Visits: 10 visits 2x/week for 5 weeks Certification From: 07/05/2018 Certification To: 08/09/2018 Treatment Plan/Interventions PT EvaluationPT Re-Nxlvyffypl61823 - Therapeutic Fywkxtim18546 - Neuromuscular Reeducation9 7116 - Gait Psvnjrpk81215 - Therapeutic Ipyhprwpun86257 - Manual Mgxmfju89032 - Self Care/Ho me Lacavpmypw33096 - Group Therapeutic Licxytxnat53253 - Aquatic Therapy/Hwkjdxvtl75829 - Io hmnkbojknpx50393 - TENS Application/Rgkcbstzutb80573 - Electrical Stimulation, Ndwscdlbmt910 35 - Ultrasound Patient and/or family has indicated understanding of treatment needs and actively participa everardo in the creation of this plan for care. Electronically signed by: Nick Barrios PT, 07/05/2018 17:54 Patient Name: Andrea Suh/: 1990/ documented in [...] | | | | | [place] [address] | | | | | | [phone] | | | | | | | | +--------+ + + + + | 10/30/ | Office | Primary Care | Erika Ernst, | | | 2019 | Visit | | DO [address] | | | | | | [place] [address] | | | | | | [phone] | | | | | | | [...] [place] | | | | | | [address] | | | | | | [phone] | | | | | | | | +--------+ + + + + | 02/09/ | Office | Neurology | Dhara, | | | 2019 | Visit | | [address] | | | [address] [place], | | | | | | [place] [address] | | | | | | [phone] | | | | | | | | +--------+ + + + + + + +--------+ + + | Name | Type | Priori | Associated Diagnoses | Order Schedule | | | | ty | | | + + +--------+ + + | * [place] [facility] | Outpatient | Routin | Sprain of | Ordered: 06/06/2018 | | [facility] | Referral | e | calcaneofibular | | | - AMB Referral | | | ligament of left | | | | | | ankle, initial | | | | | | encounter | | + + +--------+ + + documented as of this encounter Visit Diagnoses + + | Diagnosis | + + | Sprain of calcaneofibular ligament of left ankle, initial encounter | + + documented in this encounter
--- OUTSIDE RECORDS SUMMARY | ~2019-09-30 | XMS | Encounter Summary ---
Demographics + + + | Address | [address] | | | [place] [address] | + + + | Home Phone [...] Team Providers + +------+ + | Care Drier Unloader Name | Role | Phone | + [...] + + + + | 04/12/ | Telephone | [place] [facility] | Erika Ernst, | Medication Question | | 2019 | | [facility] | DO [address] | | | | | [facility] | [facility] [place] [address] | | | | | [address] [facility], | [phone] | | | | | [place] [address] | | | | | | [phone] | | | +--------+ + + + [...] | | | | | [place] [address] | | | | | | [phone] | | | | | | | | +--------+ + + + + | 10/30/ | Office | Primary Care | Erika Ernst, | | | 2019 | Visit | | DO [address] | | | | | | [place] [address] | | | | | | [phone] | | | | | | | [...] [place] | | | | | | [address] | | | | | | [phone] | | | | | | | | +--------+ + + + + | 02/09/ | Office | Neurology | Dhara, | | | 2020 | Visit | | [address] | | | [address] [place], | | | | | | [place] [address] | | | | | | [phone] | | | | | | | | +--------+ + + + + documented as of this encounter Visit Diagnoses Not on filedocumented in this encounter"
--- OUTSIDE RECORDS SUMMARY | ~2019-09-30 | XMS | Encounter Summary ---
Demographics + + + | Address | [address] | | | [place] [address] | + + + | Home Phone [...] Team Providers + +------+ + | Care Strip Machine Tender Name | Role | Phone [...] | | | | | [address] [place], | [address] | | | | | [place] [address] | [phone] | | | | | [phone] | | | +--------+ + + + [...] | | | | | [place] [address] | | | | | | [phone] | | | | | | | | +--------+ + + + + | 10/30/ | Office | Primary Care | Erika Ernst, | | | 2019 | Visit | | DO [address] | | | | | | [place] [address] | | | | | | [phone] | | | | | | | [...] [place] | | | | | | [address] | | | | | | [phone] | | | | | | | | +--------+ + + + + | 02/09/ | Office | Neurology | Dhara, | | | 2019 | Visit | | [address] | | | [address] [place], | | | | | | [place] [address] | | | | | | [phone] | | | | | | | | +--------+ + + + + documented as of this encounter Visit Diagnoses Not on filedocumented in this encounter"
--- OUTSIDE RECORDS SUMMARY | ~2019-09-30 | XMS | Encounter Summary ---
Demographics + + + | Address | [address] | | | [place] [address] | + + + | Home Phone | | + + + | Preferred Language | Unknown | + + + | Marital Status | Single | + + + | Amish Affiliation | Unknown | + + + | Race | Unknown | + + + | Ethnic Group | Unknown | + + + Author + + + | Author | [facility] | | | and [place] | + + + | Organization | [facility] | | | and [...] Team Providers + +------+ + | Care Dental Hygiene Instructor Name | Role | Phone | + +------+ + | Erika Ernst DO | PCP | | + +------+ + Reason for Visit +--------+ + | Reason | Comments | +--------+ + | Other | Dr. Noriega to review | +--------+ + Encounter Details +--------+ + + + + | Date | Type | Department | Care Team | Description | +--------+ + + + + | 08/01/ | Telephone | [place] [facility] | In[facility] Noriega | Other (Dr. Noriega to | | 2018 | | [facility] | [address] | review ) | | | | [address] [place] | [address] | | | | | [place] | [place] [address] | | | | | [address] | [phone] | | | | | [phone] | | | +--------+ + + + [...] | | | | | [place] [address] | | | | | | [phone] | | | | | | | | +--------+ + + + + | 10/30/ | Office | Primary Care | Erika Ernst, | | | 2019 | Visit | | DO [address] | | | | | | [place] [address] | | | | | | [phone] | | | | | | | [...] [place] | | | | | | [address] | | | | | | [phone] | | | | | | | | +--------+ + + + + | 02/09/ | Office | Neurology | Dhara, | | | 2020 | Visit | | [address] | | | | | [address] [place], | | | | | | [place] [address] | | | | | | [phone] | | | | | | | | +--------+ + + + + documented as of this encounter Visit Diagnoses Not on filedocumented in this encounter"
--- OUTSIDE RECORDS SUMMARY | ~2019-09-30 | XMS | Encounter Summary ---
Demographics + + + | Address | [address] | | | [place] [address] | + + + | Home Phone [...] Team Providers + +------+ + | Care Pocketed Spring Assembler Name | Role | Phone | [...] Imaging | | 2019 | | [facility] | DO [address] | | | | | [facility]ICAL [facility] [address] | [place] [address] | | | | | [address] [place], | [phone] | | | | | [place] [address] | | | | | | [phone] | | | +--------+ + + + [...] | | | | | [place] [address] | | | | | | [phone] | | | | | | | | +--------+ + + + + | 10/30/ | Office | Primary Care | Erika Ernst, | | | 2019 | Visit | | DO [address] | | | | | | [place] [address] | | | | | | [phone] | | | | | | | [...] [place] | | | | | | [address] | | | | | | [phone] | | | | | | | | +--------+ + + + + | 02/09/ | Office | Neurology | Dhara, | | | 2020 | Visit | | [address] | | | | | [address] [place], | | | | | | [place] [address] | | | | | | [phone] | | | | | | | | +--------+ + + + + documented as of this encounter Visit Diagnoses Not on filedocumented in this encounter"
--- OUTSIDE RECORDS SUMMARY | ~2019-09-30 | XMS | Encounter Summary ---
Demographics + + + | Address | [address] | | | [place] [address] | + + + | Home Phone [...] Providers + +------+ + | Care Environmental Quality Analyst Name | Role | Phone | + +------+ + | Erika Ernst DO | PCP | | + +------+ + Encounter Details +--------+---------+ + + + | Date | Type | Department | Care Team | Description | +--------+---------+ + + + | 08/13/ | Office | [facility] [facility] | Inocencio Noriega | [facility] | | 2019 | Visit | [facility] | [address] | and/or Provider | | | | [address] [place] | [address] | Cancellation) | | | | [place], [place] | [place] [address] | | | | | [address] | [phone] | | | | | [phone] | | | +--------+---------+ + + + [...] 2019 | Visit | | [address] | | | | | | [place] [address] | | | | | | [phone] | | | | | | | | +--------+ + + + + | 01/29/ | Office | Primary Care | Erika Ernst, | | | 2019 | Visit | | DO [address] | | | | | | [place] [address] | | | | | | [phone] | | | | | | | [...] [place] | | | | | | [address] | | | | | | [phone] | | | | | | | | +--------+ + + + + | 02/09/ | Office | Neurology | Dhara, | | | 2019 | Visit | | [address] | | | [address] [place], | | | | | | [place] [address] | | | | | | [phone] | | | | | | | | +--------+ + + + + documented as of this encounter Visit Diagnoses Not on filedocumented in this encounter"
--- OUTSIDE RECORDS SUMMARY | ~2019-09-30 | XMS | Encounter Summary ---
Demographics + + + | Address | [address] | | | [place] [address] | + + + | Home Phone [...] Team Providers + +------+ + | Care Mucker Cofferdam Name | Role | Phone | + +------+ + | Erika Ernst DO | PCP | | + +------+ + Reason for Visit + + + | Reason | Comments | + + + | Hand Injury | | + + + Encounter Details +--------+ + + + + | Date | Type | Department | Care Team | Description | +--------+ + + + + | 06/13/ | Emergency | [facility] | Denis Araya, | Contusion of right | | 2019 | | [facility] | [facility] [address] | hand, initial | | | | CENTER [address] | [place], [place] | encounter (Primary | | | | [place] | [address] | Dx) | | | | [address] | | | | | | [phone] | | | +--------+ + + + [...] + + + | Blood Pressure | 175/86 | 06/13/2019 5:13 PM | | | | | PDT | | + + + + + | Pulse | 61 | 06/13/2019 5:13 PM | | | | | PDT | | + + + + + | Temperature | 36.1 C (97 F) | 06/13/2019 5:13 PM | | | | | PDT | | + + + + + | Respiratory Rate | 36 | 06/13/2019 5:13 PM | | | | | PDT | | + + + + + | Oxygen Saturation | 99% | 06/13/2019 5:13 PM | RA | | | | PDT | | + + + + + | Inhaled Oxygen | - | - | | | Concentration | | | | + + + + + | Weight | 166 kg (366 lb) | 06/13/2019 5:13 PM | | | | | PDT | | + + + + + | Height | 177.8 cm (5' 10") | 06/13/2019 5:13 PM | | | | | PDT | | + + + + + | Body Mass Index | 52.52 | 06/13/2019 5:13 PM | | | | | PDT | | + + + + + documented in this encounter Discharge Instructions Instructions Denis Araya NP - 06/13/2019-Ice to sore areas for 20 minutes, every 2 ho urs while awake, as needed for pain this is especially important for the first 2-3 days. -Elevate if possible. -Use ibuprofen or acetaminophen as needed for pain. Make sure to not exceed recommended do ses. -Protect site from further injury. -Follow up orthopedics as needed for failure to improve. AttachmentsThe following attachments cannot be sent through Care Everywhere.Hand Contusion (Maldivian)documented in this encounter Medications at Time of [...] | 04/12/20 | | | (VITAMIN D3) 93269 | mouth Once a week | tablet [...] | | | | | [place] [address] | | | | | | [phone] | | | | | | | | +--------+ + + + + | 10/30/ | Office | Primary Care | Erika Ernst, | | | 2019 | Visit | | DO [address] [place] | | | | | | [place] [address] | | | | | | [phone] | | | | | | | [...] [place] | | | | | | [address] | | | | | | [phone] | | | | | | | | +--------+ + + + + | 02/09/ | Office | Neurology | Dhara, | | | 2019 | Visit | | DWAINE Ross [address] [place], | | | | | | [place] [address] | | | | | | [phone] | | | | | | | | +--------+ + + + + + +------+--------+ + + | Name | Type | Priori | Associated Diagnoses | Date/Time | | | | ty | | | + +------+--------+ + + | ED INFORMATION | YARITZA | Routin | | 06/13/2019 5:16 PM | | EXCHANGE | | e | | PDT | + +------+--------+ + + documented as of this encounter Procedures + +--------+ + + + | Procedure Name | Priori | Date/Time | Associated Diagnosis | Comments | | | ty | | | | + +--------+ + + + | XR HAND RIGHT 3 + VW | STAT | 06/13/2019 | | Results for this | | | | 6:14 PM | | procedure are in the | | | | PDT | | results section. | + +--------+ + + + documented in this encounter Results XR Hand Right 3 + Vw (06/13/2019 6:14 PM PDT) + + | Specimen | + + | | + + + + + | Impressions | Performed At | + + + | IMPRESSION: No acute finding Dictated by: Chris Bedolla | [facility] | | | | + + + + + + | Narrative | Performed At | + + + | EXAMINATION: XR HAND RIGHT 3 + VW HISTORY: HAND and wrist pain | [facility] | | after fall COMPARISON STUDY: MRI wrist 01/28/2019. Finger | | | x-ray 05/06/2019. FINDINGS: Postsurgical changes redemonstrated | | | at the distal ulna. No acute bone finding identified. | | | Approximately 1.5 mm ulnar negative variance. If concern for acute | | | fracture remains clinically follow-up images in 10 to 14 days | | | recommended. . | | + + + + + | Procedure Note | + + | Mitchel, Rad Results In - 06/14/2019 8:04 AM PDT EXAMINATION:XR HAND RIGHT 3 + | | VWHISTORY:HAND and wrist pain after fallCOMPARISON STUDY:MRI wrist 01/28/2019. Finger | | x-ray 05/06/2019.FINDINGS:Postsurgical changes redemonstrated at the distal ulna. No | | acute bone finding identified. Approximately 1.5 mm ulnar negative variance.If concern | | for acute fracture remains clinically follow-up images in 10 to 14 days recommended. | | .IMPRESSION: IMPRESSION:No acute findingDictated by: Chris Bedolla | |MRI wrist 01/28/2019. Finger x-ray 05/06/2019. | | | |FINDINGS: | |Postsurgical changes redemonstrated at the distal ulna. No acute bone finding identified. Approximately 1.5 mm ulnar negative variance. | |If concern for acute fracture remains [...] + | Diagnosis | + + | Contusion of right hand, initial encounter - Primary | + + documented in this encounter
--- OUTSIDE RECORDS SUMMARY | ~2019-09-30 | XMS | Encounter Summary ---
Demographics + + + | Address | [address] | | | [place] [address] | + + + | Home Phone [...] Team Providers + +------+ + | Care Photo Printer Name | Role | Phone | + +------+ + | Erika Ernst DO | PCP | | + +------+ + Encounter Details +--------+ + + + + | Date | Type | Department | Care Team | Description | +--------+ + + + + | 06/24/ | Hospital | C GENERIC IP | Conversion | Diagnosis unknown | | 2018 | Encounter | CONVERSION [address] | Transaction, | | | | | [address] | Provider Unknown | | | | | [place], [place] | [phone] | | | | | [phone] | (Fax) | | | | | [phone] | | | +--------+ + + + [...] | 03/19/20 | | | (VITAMIN D3) 57589 | mouth Once a week | tablet [...] Visit | | DO [address] [place] | | | | | | [place] [address] | | | | | | [phone] | | | | | | | | +--------+ + + + + | 10/30/ | Office | Primary Care | Erika Ernst, | | | 2019 | Visit | | DO [address] [place] | | | | | | [place] [address] | | | | | | [phone] | | | | | | | [...] [place] | | | | | | [address] | | | | | | [phone] | | | | | | | | +--------+ + + + + | 02/09/ | Office | Neurology | Dhara, | | | 2020 | Visit | | DWAINE Ross [address] | | | | [address] [place], | | | | | | [place] [address] | | | | | | [phone] | | | | | | | | +--------+ + + + + documented as of this encounter Procedures + +--------+ + + + | Procedure Name | Priori | Date/Time | Associated Diagnosis | Comments | | | ty | | | | + +--------+ + + + | XR WRIST RIGHT 1 VW | Routin | 11/23/2017 | | Results for this | | LIMITED | e | 5:41 PM | | procedure are in the | | | | PST | | results section. | + +--------+ + + + documented in this encounter Results XR Wrist Right 1 View Limited (11/23/2017 5:41 PM PST) + + | Specimen | [...]
--- OUTSIDE RECORDS SUMMARY | ~2019-09-30 | XMS | Encounter Summary ---
Demographics + + + | Address | [address] | | | [place] [address] | + + + | Home Phone [...] Team Providers + +------+ + | Care Inventory Control Specialist Name | Role | Phone | + +------+ + | Erika Ernst DO | PCP | | + +------+ + Reason for Visit + + + | Reason | Comments | + + + | Follow-up | wrist pain | + + + Encounter Details +--------+---------+ + + + | Date | Type | Department | Care Team | Description | +--------+---------+ + + + | 08/16/ | Office | [facility] | Erika Ernst, | Right wrist pain | | 2018 | Visit | [facility] | DO [address] | (Primary Dx); Asthma | | | | [facility] | [place] [address] | due to | | | | [address] [place], | [phone] | environmental | | | | [place] [address] | | allergies | | | | [phone] | | | +--------+---------+ + + + [...] + + + | Blood Pressure | 122/70 | 08/16/2018 9:43 AM | | | | | PST | | + + + + + | Pulse | 95 | 08/16/2018 9:43 AM | | | | | PST | | + + + + + | Temperature | - | - | | + + + + + | Respiratory Rate | 16 | 08/16/2018 9:43 AM | | | | | PST | | + + + + + | Oxygen Saturation | 97% | 08/16/2018 9:43 AM | | | | | PST | | + + + + + | Inhaled Oxygen | - | - | | | Concentration | | | | + + + + + | Weight | 154.2 kg (340 lb) | 08/16/2018 9:43 AM | | | | | PST | | + + + + + | Height | 177.8 cm (5' 10") | 08/16/2018 9:43 AM | | | | | PST | | + + + + + | Body Mass Index | 48.78 | 08/16/2018 9:43 AM | | | | | PST | | + + + + + documented in this encounter Progress Notes Erika Ernst DO - 08/16/2018 9:30 AM PSTFormatting of this note might be different fro m the original. Subjective: Patient ID: Andrea Suh is a 28 y.o. female. Here to get pain med. She had recent right wrist surgery and this is a work comp case from a year ago that is being managed by her surgeon. States having increased pain thought he inc isions look well healed. She had called her surgeon yesterday and they had instructed her to use OTC meds but she states this is not enough. We do not do chronic prison pain meds in this clinic but can give her 5 days refill on the ultram and them encouraged her to FU with surgeon, should not be having increased pain at this point after surgery. She also has asth ma and needs refill on the Qvar inhaler. [facility]. Review of Systems Constitutional: Negative. Respiratory: Negative. Cardiovascular: Negative. Musculoskeletal: Right wrist pain as above Social History Social History Marital status: Single [...] Tape Rash Outpatient Encounter Prescriptions as of 08/16/2018 Medication Sig Dispense Refill albuterol-ipratropium (COMBIVENT RESPIMAT) 100-20 mcg/puff inhaler Inhale 1 puff into t he lungs every 4 hours as needed for Shortness of Breath. 1 Inhaler 5 amLODIPine (NORVASC) 10 MG tablet Take 1 tablet by mouth Daily. 30 tablet 11 beclomethasone (QVAR) 80 mcg/puff inhaler 4 puffs BID 1 Inhaler 11 [DISCONTINUED] beclomethasone (QVAR) 80 mcg/puff inhaler 4 puffs BID 1 Inhaler 11 busPIRone (BUSPAR) 5 mg tablet Take one 5mg tab in the AM and two 5mg tabs to equal 10 mg in the PM 90 tablet 5 montelukast (SINGULAIR) 10 mg tablet Take 1 tablet by mouth nightly. 30 tablet 11 naproxen (NAPROSYN) 500 mg tablet Take 500 [...] every 6 hours as needed for Congestion. traMADol (ULTRAM) 50 mg tablet Take 1 tablet by mouth every 6 hours as needed for up to 5 days. 20 tablet 0 [DISCONTINUED] traMADol (ULTRAM) 50 mg tablet Take 50 mg by mouth. No facility-administered encounter medications on file as of 08/16/2018. Objective: BP 122/70 | Pulse 95 | Resp 16 | Ht 1.778 m (5' 10") | Wt (!) 154.2 kg (340 lb) | LMP 07/27/2018 (LMP Unknown) | SpO2 97% | ? No | BMI 48.78 kg/m Physical Exam Constitutional: She is oriented to person, place, and time. She appears well-developed and well-nourished. No distress. HENT: Head: Normocephalic and atraumatic. Eyes: Conjunctivae and EOM are normal. Right eye exhibits no discharge. Left eye exhibits n o discharge. Musculoskeletal: She exhibits no edema. Using the right wrist with out effort. Neurological: She is alert and oriented to person, place, and time. Skin: Well healed scars right wrist. Psychiatric: She has a normal mood and affect. Her behavior is normal. Judgment and thought content normal. Assessment: 1. Right wrist pain 2. Asthma due to environmental allergies Plan: Giving 5 days only of the ultram 50 mg q 6 hour prn greater pain and encouraged her to FU w ith her surgeon. Refilled qvar inhaler and she will keep her appointment with the Asthma ce den[facility] tomorrow. documented in this en counter Plan of Treatment +--------+ + + + + | Date | Type | Specialty | Care Team | Description | +--------+ + + + + | 10/01/ | Office | Primary Care | Erika Ernst, | | | 2018 | Visit | | DO [address] | | | | | | [place] [address] | | | | | | [phone] | | | | | | | | +--------+ + + + + | 10/30/ | Office | Primary Care | Erika Ernst, | | | 2019 | Visit | | DO [address] [place] [address] | | | | | | [place] [address] | | | | | | [phone] | | | | | | | [...] | | | | | [place] | | | | | | [address] | | | | | | [phone] | | | | | | | | +--------+ + + + + | 02/09/ | Office | Neurology | Dhara, | | | 2019 | Visit | | DWAINE [address] | | | | | | [address] [facility] [place], | | | | | | [place] [address] | | | | | | [phone] | | | | | | | | +--------+ + + + + documented as of this encounter Visit Diagnoses + + | Diagnosis | + + | Right wrist pain - Primary Pain in joint, forearm | + + | Asthma due to environmental allergies | + + documented in this encounter
--- OUTSIDE RECORDS SUMMARY | ~2019-09-30 | XMS | Encounter Summary ---
Demographics + + + | Address | [address] | | | [place] [address] | + + + | Home Phone [...] Team Providers + +------+ + | Care Landscaping Crew Leader Name | Role | Phone | + +------+ + PCP | Unavailable | + +------+ + Encounter Details +--------+ + + + + | Date | Type | Department | Care Team | Description | +--------+ + + + + | 09/03/ | [facility] | Jessica Hoang, | | | 2012 | Encounter | [facility] [address] | INTEL ANALYST [address] | | | | | [address] | [place] | | | | | [place] | [address] | | | | | [address] | | | | | | [phone] | | | +--------+ + + + [...] | | | | | [place] [address] | | | | | | [phone] | | | | | | | | +--------+ + + + + | 10/30/ | Office | Primary Care | Erika Ernst, | | | 2019 | Visit | | DO [address] | | | | | | [place] [address] | | | | | | [phone] | | | | | | | [...] [place] | | | | | | [address] | | | | | | [phone] | | | | | | | | +--------+ + + + + | 02/09/ | Office | Neurology | Dhara, | | | 2020 | Visit | | DWAINE Ross [address] [place], | | | | | | [place] [address] | | | | | | [phone] | | | | | | | | +--------+ + + + + documented as of this encounter Visit Diagnoses Not on filedocumented in this encounter"
--- OUTSIDE RECORDS SUMMARY | ~2019-09-30 | XMS | Encounter Summary ---
Demographics + + + | Address | [address] | | | [place] [address] | + + + | Home Phone [...] Team Providers + +------+ + | Care Outside Sales Inspector Name | Role | Phone | [...] 08/16/ | Telephone | [facility] [facility] | Luis Nichole MD | Other | | 2019 | | HOSPITAL [facility] | [address] | | | | | CLINIC [address] | [place], [place] | | | | | [address] [place], | [address] | | | | | [place] [address] | | | | | | [phone] | | | +--------+ + + + [...] | | | | | [place] [address] | | | | | | [phone] | | | | | | | | +--------+ + + + + | 10/30/ | Office | Primary Care | Erika Ernst, | | | 2019 | Visit | | DO [address] [place] | | | | | | [place] [address] | | | | | | [phone] | | | | | | | [...] [place] | | | | | | [address] | | | | | | [phone] | | | | | | | | +--------+ + + + + | 02/09/ | Office | Neurology | Dhara, | | | 2020 | Visit | | DWAINE Ross [address] | | | [address] [place], | | | | | | [place] [address] | | | | | | [phone] | | | | | | | | +--------+ + + + + documented as of this encounter Visit Diagnoses Not on filedocumented in this encounter"
--- OUTSIDE RECORDS SUMMARY | ~2019-09-30 | XMS | Encounter Summary ---
Demographics + + + | Address | [address] | | | [place] [address] | + + + | Home Phone [...] Team Providers + +------+ + | Care Import Customs Clearing Agent Name | Role | Phone | + +------+ + PCP | Unavailable | + +------+ + Encounter Details +--------+ + + + + | Date | Type | Department | Care Team | Description | +--------+ + + + + | 10/27/ | [facility] | [facility] | Erika Ernst, | | | 2015 | Encounter | [facility] | DO [address] | | | | | MEDICAL CLIN[facility] [address] | [facility] [place] [address] | | | | | [address] [place], | [phone] | | | | | [place] [address] | | | | | | [phone] | | | +--------+ + + + [...] | | | | | [place] [address] | | | | | | [phone] | | | | | | | | +--------+ + + + + | 10/30/ | Office | Primary Care | Erika Ernst, | | | 2019 | Visit | | DO [address] | | | | | | [place] [address] | | | | | | [phone] | | | | | | | [...] [place] | | | | | | [address] | | | | | | [phone] | | | | | | | | +--------+ + + + + | 02/09/ | Office | Neurology | Dhara, | | | 2020 | Visit | | DWAINE Ross [address] | | [address] [place], | | | | | | [place] [address] | | | | | | [phone] | | | | | | | | +--------+ + + + + documented as of this encounter Visit Diagnoses Not on filedocumented in this encounter"
--- OUTSIDE RECORDS SUMMARY | ~2019-09-30 | XMS | Encounter Summary ---
Demographics + + + | Address | [address] | | | [place] [address] | + + + | Home Phone [...] Providers + +------+ + | Care Therapist Asst Name | Role | Phone | + [...] otitis | | 2018 | Visit | [facility] | DO [address] | media (Primary Dx); | | | | MEDICAL CLINIC [address] | [facility] [address] | Elevated blood | | | | [address] [place], | [phone] | pressure reading | | | | [place] [address] | | | | | | [phone] | | | +--------+---------+ + + + [...] [place] | | | | | | [facility] [place] [address] | | | | | | [phone] | | | | | | | | +--------+ + + + + | 10/30/ | Office | Primary Care | Erika Ernst, | | | 2019 | Visit | | DO [address] [place] | | | | | | [place] [address] | | | | | | [phone] | | | | | | | [...] [place] | | | | | | [address] | | | | | | [phone] | | | | | | | | +--------+ + + + + | 02/09/ | Office | Neurology | Dhara, | | | 2019 | Visit | | DWAINE Ross [address] | | | [address] [place], | | | | | | [place] [address] | | | | | | [phone] | | | | | | | [...]
--- OUTSIDE RECORDS SUMMARY | ~2019-09-30 | XMS | Encounter Summary ---
Demographics + + + | Address | [address] | | | [place] [address] | + + + | Home Phone [...] Team Providers + +------+ + | Care Client Business Manager Name | Role | Phone | [...] + + + + + + | Pending | Specialty | Occupational | Diagnoses | Travis Malone | RIYA | | Review | Services | Therapy | S/P | C, ACQUISITION CONSULTANT [address] [facility] | | | Required | | excisional | [address] | THERAPY [address] | | | | | debridement | [address] [place] | [address] | | | | | Procedures | [place], [place] | [place] | | | | | PT | [address] | [address] | | | | | | Phone: | Phone: | | | | | | [phone] | [phone] | | | | | | Fax: | Fax: | | | | | | [phone] | [phone] | + + + + + + + Reason for Visit + + + | Reason | Comments | + + + | Post-op Exam | 4 wk PO Right ECU tendon repair. DOS: 03/20/19 | + + + Encounter Details +--------+---------+ + + + | Date | Type | Department | Care Team | Description | +--------+---------+ + + + | 04/30/ | Office | [place] [facility] | Travis Malone FNP | S/P right ECU | | 2019 | Visit | [facility] | [address] | tenosynovectomy on | | | | [address] [place] | [place], [place] | 03/20/19 (Primary Dx) | | | | [place] | [address] | | | | | [address] | [phone] | | | | | [phone] | | | +--------+---------+ + + + [...] + + + | Blood Pressure | 128/86 | 04/30/2019 11:41 AM | | | | | PDT | | + + + + + | Pulse | 86 | 04/30/2019 11:41 AM | | | | | PDT | | + + + + + | Temperature | 36.3 C (97.3 F) | 04/30/2019 11:41 AM | | | | | PDT | | + + + + + | Respiratory Rate | 20 | 04/30/2019 11:41 AM | | | | | PDT | | + + + + + | Oxygen Saturation | 97% | 04/30/2019 11:41 AM | | | | | PDT [...] + documented in this encounter Progress Travis Jeffers, DWAINE - 04/30/2019 11:40 AM PDT Orthopedic Postoperative Note Patient Name: Andrea Suh | Age: 29 y.o. | : 1990 | Medical Record Number:[id number] | Author: Jose Francisco Malone DC ACQUISITION CONSULTANT-C | Date of Encounter: 04/30/2019 Surgeon: Inocencio Noriega MD History of present illness Andrea Suh is a 29 y.o. female that follows up in the office 4 weeks status post r ight extensor carpi ulnaris tenosynovectomy, reporting no complications with her recovery ot her than a loose cast that was applied by the [facility] ER when she presented to them wi th a wet fiberglass sugar tong splint requesting re-immobilization. The patient reports: Pain Level: 5 / 10 Improvement in symptoms: Yes Numbness: None Fevers or chills: None Drainage: None Physical examination Vitals: 04/30/19 1141 BP: 128/86 Pulse: 86 Resp: 20 Temp: 36.3 C (97.3 F) PainSc: 5 PainLoc: Arm Right upper extremity: On today's examination there is: Ecchymosis: None Swelling: None Erythema: None Drainage: None The patient can initiate movement in all vectors Fingers are warm and perfused: Yes Assessment Andrea was seen today for post-op exam. Diagnoses and all orders for this visit: S/P right ECU tenosynovectomy on 03/20/19 - T OT Plan 1. Active range of motion and wound check today. 2. Wear your Velcro wrist splint for comfort with gradual advancement to no splinting over the next 4 weeks. 3. 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 4. Range of motion exercises reinforced, order for occupational therapy and post-op instru ctions given to patient. Follow-Up Return in about 1 month (around 05/28/2019) for 8wk PO R ECU surgery/ OT Follow up w/ Dr Alvarado araya. Past Medical History: Diagnosis Date Allergic rhinitis Anemia Asthma Dysmenorrhea Hypertension Hypothyroid Iron deficiency Obesity ALVAREZ (obstructive sleep apnea) Periodontal disease, unspecified TMJ pain dysfunction syndrome Past Surgical History: Procedure Laterality Date EYE SURGERY HAND TENDON SURGERY Right 03/20/2019 Procedure: REPAIR E.C.U. Tendon; Surgeon: Inocencio Noriega MD; Location: [facility] SURGERY RIGHT KIDNER PROCEDURE 01/20/2016 Surgeon: Fani Mahajan MD; Location: [facility] TENDON RELEASE TONSILLECTOMY WISDOM TOOTH EXTRACTION Family History Problem Relation Age of Onset Other (see comment) Mother gallbladder disease Hypertension Father Other (see comment) Father lilibeth Breast cancer Sister Cervical cancer Maternal Grandmother Heart attack Maternal Aunt [place] Social History Tobacco Use Smoking status: Never [...] with certain antibiotics Adhesive & Tape Rash I attest to the fact that I have reviewed the patient's medical, surgical, family and socia l histories, medications, allergies, and their vital signs recorded by my occupational therapy assistant today, a s found in this chart note. Electronically signed by: MOHSEN Martinez 04/30/2019 at 13:10 Note: Part of this report was transcribed using voice recognition software. Every effort wa s made to ensure accuracy. However, inadvertent computerized pipe line inspector errors may be pre sent. CC: Erika [...] | | | | | [place] [address] | | | | | | [phone] | | | | | | | | +--------+ + + + + | 10/30/ | Office | Primary Care | Erika Ernst, | | | 2019 | Visit | | DO [address] [place] | | | | | | [place] [address] | | | | | | [phone] | | | | | | | [...] [place] | | | | | | [address] | | | | | | [phone] | | | | | | | | +--------+ + + + + | 02/09/ | Office | Neurology | Dhara, | | | 2019 | Visit | | Cody, ACQUISITION CONSULTANT [address] | | | | | | [address] [facility], | | | | | | [place] [address] | | | | | | [phone] | | | | | | | | +--------+ + + + + +--------+ +--------+ + + | Name | Type | Priori | Associated Diagnoses | Order Schedule | | | | ty | | | +--------+ +--------+ + + | [facility] OT | Outpatient | Routin | S/P right ECU | Ordered: 04/30/2019 | | | Referral | e | tenosynovectomy on | | | | | | 03/20/19 | | +--------+ +--------+ + + documented as of this encounter Visit Diagnoses + + | Diagnosis | + + | S/P right ECU tenosynovectomy on 03/20/19 - Primary | + + documented in this encounter"
--- OUTSIDE RECORDS SUMMARY | ~2019-09-30 | XMS | Encounter Summary ---
Demographics + + + | Address | [address] | | | [place] [address] | + + + | Home Phone [...] Providers + +------+ + | Care Home Designer Name | Role | Phone | + +------+ + | Erika Ernst DO | PCP | | + +------+ + Reason for Visit Evaluate & Treat (Routine) +--------+ + + [...] | | | | severe | [place] [address] | [place] | | | | | obesity due | Phone: | [phone] | | | | | to excess | [phone] | Phone: | | | | | calories | Fax: | [phone] | | | | | without | [phone] | Fax: | | | | | serious | | [phone] | | | | | comorbidity | [...] | | | | | | | [place] MED NUTR | | | | | | | THER, 1ST, | | | | | | | INDIV, EA 15 | | | | | | | MIN [place] MED | | | | | | [...] | +--------+ + + + + | 03/13/ | Hospital | [facility] | Erika Ernst, | Dietary counseling | | 2019 | Encounter | [facility] | DO [address] | and surveillance; | | | | SERVICES [address] | [place] [address] | Benign hypertension; | | | | [place] | [phone] | Morbid obesity | | | | [address] | | (FORMERLY [facility]); Adult body | | | | [phone] | Janel Webster, | mass index 50.0-59.9 | | | | | RD | (FORMERLY [facility]) | +--------+ + + + + Social [...] | 02/29/20 | | | (VITAMIN D3) 86087 | mouth Once a week | tablet [...] encounter Progress Notes Janel Webster, RD - 03/14/2019 8:31 AM PDTAssessment: Dx:obesity, HTN Reports high level of stress from work, Still seeing a therapist, and says she has positive stress relievers such as baking and turning off phone once out of work. Pt says she follow myplate portions but has been going out to eat more frequently (almost every day) due to bu syness of work/grad school. She's getting hand surgery next week so had been meal prepping. Physical activity: walks 3-7 miles per day but does have ankle pain, which she says she is s eeing Dr. Mittal for. Food recall: B: skips, L: duran burrito D: tofu beef ,cucumbers or mac an d cheese Drinks: water, fruit juice ~2 cups Height:5'10 Current wt:381.7# Last RD visit wt: 376# BMI:54.9 Nutrition Diagnosis: Excessive energy intake r/t increased frequency of eating out AEB pt r eport of eating out every day due to stress and wt gain of 5.7# since last visit. Intervention: Wt gain 5.7# since last visit. I think stress is playing is playing a major factor to pt's weight gain. Discussed the importance of positive stress relief options. Reeducated pt on my plate portions/balance. Rec diluting fruit juice, limit to <8oz or less/ day, rec also tryin g water infusion. Pt is concerned that she may not be getting enough protein, discussed diff erent protein sources that she is eating, however, did express the important of a food diary on myfitness pal so we can see the exact macronutrient percentages. Fast food frequency shirley l likely be decreasing since she is meal prepping for after surgery. Goals: 1. Follow myplate portions 2. No skipping breakfast 3. Limit diluted fruit juice <8oz per day 4. Keep up regular physical activity, goal 2 hrs 30 mins per week Pt receptive to education but still unable to fully evaluate pt's eating habit due to no fo od diary. Rec she keeps one for next visit. Monitor/Evaluation: Will monitor wt trends, nutrition related labs and food diary. Scheduled for a revisit in 6 to 8 weeks. Time spent with pt: 30 mins Electronically Signed by: Janel Webster RD 03/14/2019 16:35 documented in this encounter Plan of Treatment +--------+ + + + + | Date | Type | Specialty | Care Team | Description | +--------+ + + + + | 10/01/ | Office | Primary Care | Erika Ernst, | | | 2018 | Visit | | DO [address] [place] | | | | | | [place] [address] | | | | | | [phone] | | | | | | | | +--------+ + + + + | 10/30/ | Office | Primary Care | Erika Ernst, | | | 2019 | Visit | | DO [address] [place] | | | | | | [place] [address] | | | | | | [phone] | | | | | | | [...] [place] | | | | | | [address] | | | | | | [phone] | | | | | | | | +--------+ + + + + | 02/09/ | Office | Neurology | Dhara, | | | 2019 | Visit | | DWAINE Ross [address] [place], | | | | | | [place] [address] | | | | | | [phone] | | | | | | | | +--------+ + + + + documented as of this encounter Visit Diagnoses + + | Diagnosis | + + | Dietary counseling and surveillance Dietary surveillance and counseling | + + | Benign hypertension Essential hypertension, benign | + + | Morbid obesity (HCC) Morbid obesity | + + | Adult body mass index 50.0-59.9 (HCC) Body Mass Index 50.0-59.9, adult | + + documented in this encounter"
--- OUTSIDE RECORDS SUMMARY | ~2019-09-30 | XMS | Encounter Summary ---
Demographics + + + | Address | [address] | | | [place] [address] | + + + | Home Phone [...] Team Providers + +------+ + | Care Elderly Sitter Name | Role | Phone | + +------+ + | Erika Ernst DO | PCP | | + +------+ + Reason for Visit + + + | Reason | Comments | + + + | Ankle Injury | Left DOI: 05/31/18 | + + + Evaluate & Treat (Routine) +--------+ + + + + + | Status | Reason | Specialty | Diagnoses / | Referred By | Referred To | | | | | Procedures | Contact | Contact | +--------+ + + + + + | Closed | Specialty | Orthopedic | Diagnoses | Klever, | [facility] | | | Services | Surgery | Sprain of | Erika A, DO | Orthopedic | | | Required | | calcaneofibu | [address] | [address] | | | | | lar ligament | [place], | [place] | | | | | of left | [place] [address] | [place], [place] | | | | | ankle, | Phone: | [phone] | | | | | initial | [phone] | Phone: | | | | | encounter | Fax: | [phone] | | | | | Procedures | [phone] | Fax: | | | | | [place] | | [phone] | +--------+ + + + + + Encounter Details +--------+---------+ + + + | Date | Type | Department | Care Team | Description | +--------+---------+ + + + | 06/19/ | Office | [facility] | Abhi Grimes | Acute ankle pain, | | 2018 | Visit | [facility] | DO [address] | unspecified | | | | [address] [place] | [address] | laterality (Primary | | | | [place], [place] | [place] [address] | Dx); Sprain of left | | | | [address] | [phone] | ankle, unspecified | | | | [phone] | | ligament, initial | | | [...] + + + | Blood Pressure | 118/88 | 06/19/2018 3:22 PM | | | | | PDT | | + + + + + | Pulse | 83 | 06/19/2018 3:22 PM | | | | | PDT | | + + + + + | Temperature | - | - | | + + + + + | Respiratory Rate | 18 | 06/19/2018 3:22 PM | | | | | PDT | | + + + + + | Oxygen Saturation | 98% | 06/19/2018 3:22 PM | | | | | PDT | | + + + + + | Inhaled Oxygen | - | - | | | Concentration | | | | + + + + + | Weight | 166.5 kg (367 lb) | 06/19/2018 3:22 PM | | | | | PDT | | + + + + + | Height | 177.8 cm (5' 10") | 06/19/2018 3:22 PM | | | | | PDT | | + + + + + | Body Mass Index | 52.66 | 06/19/2018 3:22 PM | | | | | PDT | | + + + + + documented in this encounter Progress Notes Abhi Grimes DO - 06/19/2018 3:30 PM PDTFormatting of this note might be differe nt from the original. Orthopedic Clinic Note Patient Name: Andrea Suh | Age: 28 y.o. | : 1990 | [id number] | Author: ABHI GRIMES DO | Date of Encounter: 06/19/2018 Chief complaint Chief Complaint Patient presents with Ankle Injury Left DOI: 05/31/18 Date of injury History of Present Illness Andrea Suh is a 28 y.o. female referral from her PCP regarding a sprained ankle. This is a workman's comp case. She states approximately 3 weeks ago she was walking [facility] the [facility] lot when she slipped on some twigs and rolled her ankle. She was able to ambulate at ravinder t time and has been able to ambulate since. She is currently on desk duty only. She was se en in the ER and then followed up with her PCP. She states that there was significant swell ing and bruising which has decreased but is still present.She reports that her pain is a mil d to moderate constant pain that is aching in nature with intermittent sharp pains. She has tried ice, elevation and anti-inflammatory medications. She denies any numbness, tingling, erythema or warmth. She denies any fevers, chills, or night sweats. She reports that rest makes it better and activity makes it worse. Review of Pertinent Systems Patient denies any visit problem associated neurologic and vascular system symptoms of numb ness, tingling or weakness during this history today. Medications Current Outpatient Prescriptions on File Prior to Visit Medication Sig Dispense Refill amLODIPine (NORVASC) 5 mg tablet Take 1 tablet by mouth Daily. 30 tablet 11 beclomethasone (QVAR) 80 mcg/puff inhaler Inhale 1 puff into the lungs 2 times daily. 1 Inhaler 11 busPIRone (BUSPAR) 5 mg tablet Take one 5mg tab in the AM and two 5mg tabs to equal 10 mg in the PM 90 tablet 5 Cholecalciferol (VITAMIN D3) 64177 units TABS Take 1 tablet by mouth Once a week for 16 doses. 16 tablet 0 ferrous sulfate 325 mg tablet Take by mouth. fexofenadine (JOSÉ ANTONIO ALLERGY) 180 mg tablet Take by mouth. montelukast (SINGULAIR) 10 mg tablet Take by mouth. naproxen (NAPROSYN) 500 mg tablet Take 500 mg by mouth 2 times daily (with breakfast & dinner). traMADol (ULTRAM) 50 mg tablet Take 1 tablet by mouth every 8 hours as needed. 30 table t 0 VENTOLIN HFA 108 (90 Base) MCG/ACT inhaler INSTILL 2 PUFFS BY MOUTH EVERY 4 TO 6 HOURS NEEDED 18 g 11 No current facility-administered medications on file prior to visit. Allergies Escitalopram; Latex; Hydrocodone; Uncoded nonscreenable allergen; and Adhesive & tape Vitals BP 118/88 | Pulse 83 | Resp 18 Temp | Wt (!) 166.5 kg (367 lb) | BMI Body mass index is 52.66 kg/m. Imaging/Labs/Special Study Results Visit problem associated images and findings reviewed by me today with the patient include: No results found. Physical Exam and Radiographic Results Left ankle: the patient is tender to palpation along the lateral and medial ligamentous com plex, and has some soft tissue swelling and bruising laterally. The patient has discomfort w ith supination of the foot as well as stability testing. They have a negative squeeze test p roximally, and are mildly tender to palpation over the distal fibula, but non tender over th e fifth metacarpal, and Achilles tendon. They lack full motion secondary to discomfort and s welling. They have 5/5 strength, and are neurovascularly intact distally. There is no erythe ma, warmth or skin lesions present. A/P, lateral, and mortise views of the left ankle were reviewed in the office today and dem onstrated no periosteal reaction, no medullary lesions, no osteopenia, well aligned joint sp aces and no chondrolysis. Assessment Andrea was seen today for ankle injury. Diagnoses and all orders for this visit: Acute ankle pain, unspecified laterality - XR Ankle Left 3 + Vw; Future Sprain of left ankle, unspecified ligament, initial encounter Discussion/Procedures Discussed condition with patient and advised her that she has a simple ankle sprain, anna lateral continue to improve with time. I recommended physical therapy, and she stated that she is already scheduled for PT. I advised her to continue to ice and elevate on an as-need ed basis, and she can follow-up with me on an as-needed basis, and she'll follow up with her PCP following the completion of physical therapy. Plan of Care Physical therapy Follow-up Return if symptoms worsen or fail to improve. Active Problems, Medical and Surgical Histories Patient Active Problem List Diagnosis Asthma due to environmental allergies Depression Acquired hypothyroidism Class 3 severe obesity due to excess calories without serious comorbidity in adult Essential hypertension TMJ (temporomandibular joint disorder) Chronic lumbar pain Left hip pain PTSD (post-traumatic stress disorder) Chronic hand pain, right Vitamin D deficiency Environmental allergies Anxiety Past Medical History: Diagnosis Date Allergic rhinitis Anemia Asthma Dysmenorrhea Hypertension Hypothyroid Iron deficiency Obesity ALVAREZ (obstructive sleep apnea) TMJ pain dysfunction syndrome Past Surgical History: Procedure Laterality Date EYE SURGERY RIGHT KIDNER PROCEDURE 01/20/2016 Surgeon: Fani Mahajan MD; Location: [facility] TONSILLECTOMY WISDOM TOOTH EXTRACTION Family History Problem Relation Age of Onset Other (see comment) Mother gallbladder disease Social History Social History Marital status: Single [...] and their vital signs recorded by my higher level teaching assistant today, leslie s found in this chart note. Electronically signed by: Abhi Grimes DO 06/19/2018 at 15:43 Note: Part of this report was transcribed using voice recognition software. Every effort wa s made to ensure accuracy. However, inadvertent computerized enrober tender errors may be pre sent. CC: Erika Ernst DO -Thank you for choosing our clinic for your orthopedic care today- documented in t his encounter Plan of Treatment +--------+ + + + + | Date | Type | Specialty | Care Team | Description | +--------+ + + + + | 10/01/ | Office | Primary Care | Erika Ernst, | | | 2018 | Visit | | DO [address] [place] | | | | | | [place] [address] | | | | | | [phone] | | | | | | | | +--------+ + + + + | 10/30/ | Office | Primary Care | Erika Ernst, | | | 2019 | Visit | | DO [address] [place] | | | | | | [place] [address] | | | | | | [phone] | | | | | | | [...] [place] | | | | | | [address] | | | | | | [phone] | | | | | | | | +--------+ + + + + | 02/09/ | Office | Neurology | Dhara, | | | 2019 | Visit | | DWAINE Ross [address] [place], | | | | | | [place] [address] | | | | | | [phone] | | | | | | | | +--------+ + + + + documented as of this encounter Results XR Ankle Left 3 + Vw (06/19/2018 3:35 PM PDT) + + | Specimen | + + | | + + + + + | Impressions | Performed At | + + + | IMPRESSION: Finding at the calcaneus which may relate to overlap of | [facility] | | normal anatomy. A subtle stress fracture could result in similar | | | appearance. Dictated by: Chris Bedolla | | + + + + + + | Narrative | Performed At | + + + | EXAMINATION: XR ANKLE LEFT 3 + VW HISTORY: ankle pain | [facility] | | COMPARISON STUDY: None FINDINGS: At the caudal calcaneus on | | | lateral view a mildly crescentic region of increased bone density is | | | apparent. If concern for acute fracture remains clinically follow-up | | | images in 10 to 14 days recommended. . | | + + + + + | Procedure Note | + + | Mitchel, Rad Results In - 06/19/2018 3:51 PM PDT EXAMINATION:XR ANKLE LEFT 3 + | | VWHISTORY:ankle painCOMPARISON STUDY:NoneFINDINGS:At the caudal calcaneus on lateral | | view a mildly crescentic region of increased bone density is apparent.If concern for | | acute fracture remains clinically follow-up images in 10 to 14 days recommended. | | .IMPRESSION: IMPRESSION:Finding at the calcaneus which may relate to overlap of normal | | anatomy. A subtle stress fracture could result in similar appearance.Dictated by: | | Chris Bedolla | |None | | | |FINDINGS: | |At the caudal calcaneus on lateral view a mildly crescentic region of increased bone densit y is apparent. | |If concern for acute fracture remains clinically follow-up images in 10 to 14 days recommen ded. . | | | |IMPRESSION: | |IMPRESSION: | |Finding at the calcaneus which may relate to overlap of normal anatomy. A subtle stress fr acture could result in similar appearance. | | | |Dictated by: Chris Bedolla [...] | Diagnosis | + + | Acute ankle pain, unspecified laterality - Primary | + + | Sprain of left ankle, unspecified ligament, initial encounter | + + documented in this encounter
--- OUTSIDE RECORDS SUMMARY | ~2019-09-30 | XMS | Encounter Summary ---
Demographics + + + | Address | [address] | | | [place] [address] | + + + | Home Phone [...] + + + | Author | [facility] | | | and [place] | + + + | Organization | [facility] | | | [...] Team Providers + +------+ + | Care Wood Carving Machine Operator Name | Role | Phone | + +------+ + | Erika Ernst DO | PCP | | + +------+ + Encounter Details +--------+ + + + + | Date | Type | Department | Care Team | Description | +--------+ + + + + | 02/21/ | Orders Only | [facility] | Erika Ernst, | Lymphocytosis | | 2019 | | [facility] | DO [address] [place] | (Primary Dx) | | | | [facility] [address] | [place] [address] | | | | [address] [place], | [phone] | | | | | [place] [address] | | | | | | [phone] | | | +--------+ + + + [...] 2019 | Visit | | DO [address] | | | | | | [place] [address] | | | | | | [phone] | | | | | | | | +--------+ + + + + | 10/30/ | Office | Primary Care | Erika Ernst, | | | 2019 | Visit | | DO [address] [place] | | | | | | [place] [address] | | | | | | [phone] | | | | | | | [...] [place] | | | | | | [address] | | | | | | [phone] | | | | | | | | +--------+ + + + + | 02/09/ | Office | Neurology | Dhara, | | | 2019 | Visit | | DWAINE Ross [address] [place], | | | | | | [place] [address] | | | | | | [phone] | | | | | | | | +--------+ + + + + documented as of this encounter Results Path Hematology Request (02/20/2019 4:26 PM PDT) + + + + + + | Component | Value | Ref Range | Performed | Pathologist | | | | | At | Signature | + + + + + + | PERIPHERAL | Comment: Per Dr. Perez | | [place] | | | SMEAR | 02/26/19: Agree with | | [facility] | | | | reported values and | | HOSPITAL | | | | morphology. Leukocytosis | | LABORATORY | | | | with mild | | | | | | lymphocytosis. There is | | | | | | a spectrum of lymphocyte | | | | | | morphology, including | | | | | | reactive lymphocytes. | | | | | | Clinical correlation is | | | | | | required. | | | | + + + + + + + + | Specimen | + + | Blood | + + + + + + + | Performing | Address | City/State/Zipcode | Phone Number | | Organization | | | | + + + + + | [facility] | [address] | [place] [address] | [phone] | | [facility] | | | | + + + + + documented in this encounter Visit Diagnoses + + | Diagnosis | + + | Lymphocytosis - Primary Lymphocytosis (symptomatic) | + + documented in this encounter"
--- OUTSIDE RECORDS SUMMARY | ~2019-09-30 | XMS | Encounter Summary ---
Demographics + + + | Address | [address] | | | [place] [address] | + + + | Home Phone [...] Team Providers + +------+ + | Care Petrophysicist Name | Role | Phone | + +------+ + | Erika Ernst DO | PCP | | + +------+ + Reason for Visit + + + | Reason | Comments | + + + | Paperwork | FMLA | + + + Encounter Details +--------+---------+ + + + | Date | Type | Department | Care Team | Description | +--------+---------+ + + + | 09/23/ | Office | [facility] | Erika Ernst, | Essential | | 2019 | Visit | [facility] | DO [address] | hypertension | | | | [facility] | [place] [address] | (Primary Dx); Iron | | | | [address] [place], | [phone] | deficiency; Asthma | | | | [place] [address] | | due to environmental | | | | [phone] | | allergies; Dysuria; | | | | | | Pain of upper | | | | | | abdomen; Breast | | | | | | cancer screening, | | | | | | high risk patient; | | | | | | Breast cancer | | | | | | screening by | | | | | | mammogram | +--------+---------+ + + + Social History [...] + + + | Blood Pressure | 132/88 | 09/23/2019 3:19 PM | | | | | PST | | + + + + + | Pulse | 112 | 09/23/2019 3:19 PM | | | | | PST | | + + + + + | Temperature | - | - | | + + + + + | Respiratory Rate | 18 | 09/23/2019 3:19 PM | | | | | PST | | + + + + + | Oxygen Saturation | 98% | 09/23/2019 3:19 PM | | | | | PST | | + + + + + | Inhaled Oxygen | - | - | | | Concentration | | | | + + + + + | Weight | 168.3 kg (371 lb) | 09/23/2019 3:19 PM | | | | | PST | | + + + + + | Height | 177.8 cm (5' 10") | 09/23/2019 3:19 PM | | | | | PST | | + + + + + | Body Mass Index | 53.23 | 09/23/2019 3:19 PM | | | | | PST | | + + + + + documented in this encounter Progress Erika Cespedes DO - 09/23/2019 3:20 PM PSTFormatting of this note might be different fro m the original. Subjective: Patient ID: Andrea Suh is a 29 y.o. female. HTN is good control with prazosin BID. She did not tolerated the ramipril thought it was ca using increased headaches. She has iron deficiency not responding to oral iron but now she s tates she has not keeping the iron down all the time and would like to try liquid iron that she will put in a drink. We did do a referral to hematology also for this but will go ahead and try the liquid iron. She continues to have intermittent asthma flairs and we will contin ue FMLA as needed for this. States she got notice due for mammogram in Oct. She had genetic testing and his high risk with family history breast cancer. She today has dysuria so we shirley l check UA. No fever. Has been having intermittent upper abd pain and nausea. States incre ed stress with her Mom having a recent stroke. Non-smoker. Review of Systems As above Objective: BP 132/88 | Pulse 112 | Resp 18 | Ht 1.778 m (5' 10") | Wt (!) 168.3 kg (371 lb) | SpO 2 98% | BMI 53.23 kg/m Physical Exam Constitutional: Appearance: Normal appearance. HENT: Head: Normocephalic and atraumatic. Eyes: Extraocular Movements: Extraocular movements intact. Pupils: Pupils are equal, round, and reactive to light. Cardiovascular: Rate and Rhythm: Normal rate and regular rhythm. Heart sounds: No murmur. Pulmonary: Effort: Pulmonary effort is normal. No respiratory distress. Breath sounds: Normal breath sounds. Abdominal: General: Bowel sounds are normal. There is no distension. Palpations: There is no mass. Tenderness: There is tenderness. There is no right CVA tenderness, left CVA tenderness, guarding or rebound. Hernia: No hernia is present. Comments: Mild upper epigastric and right upper abd pain Musculoskeletal: Right lower leg: No edema. Left lower leg: No edema. Skin: Capillary Refill: Capillary refill takes less than 2 seconds. Neurological: General: No focal deficit present. Mental Status: She is alert and oriented to person, place, and time. Psychiatric: Mood and Affect: Mood normal. Thought Content: Thought content normal. Judgment: Judgment normal. Assessment: 1. Essential hypertension 2. Iron deficiency CBC with Differential CBC with Differential Ferritin Iron and Iron Binding Capacity 3. Asthma due to environmental allergies 4. Dysuria Urinalysis with Microscopic with Culture if Indicated 5. Pain of upper abdomen Hepatitis Panel, Acute Lipase Comprehensive Metabolic Panel CBC with Differential US Abdomen Limited 6. Breast cancer screening, high risk patient JERMAIN Tomosynthesis Screening Bilateral 7. Breast cancer screening by mammogram JERMAIN Tomosynthesis Screening Bilateral Plan: Continue prazosin for HTN control and monitor. Try liquid iron replacement to see if tolera larry better. Still needs her FMLA periodic for asthma flairs this has not changed. Check UA. US abd and lipase, hep screen, CMP, CBC. Mammogram due to high risk. documented in this en counter Plan of Treatment +--------+ + + + + | Date | Type | Specialty | Care Team | Description | +--------+ + + + + | 10/01/ | Office | Primary Care | Erika Ernst, | | | 2018 | Visit | | DO [address] | | | | | | [place] [address] | | | | | | [phone] | | | | | | | | +--------+ + + + + | 10/30/ | Office | Primary Care | Erika Ernst, | | | 2019 | Visit | | DO [address] | | | | | | [place] [address] | | | | | | [phone] | | | | | | | [...] [place] | | | | | | [address] | | | | | | [phone] | | | | | | | | +--------+ + + + + | 02/09/ | Office | Neurology | Dhara, | | | 2019 | Visit | | [address] | | | | | [address] [place], | | | | | | [place] [address] | | | | | | [phone] | | | | | | | | +--------+ + + + + + +---------+--------+ + + | Name | Type | Priori | Associated Diagnoses | Order Schedule | | | | ty | | | + +---------+--------+ + + | CBC with | Lab | Routin | Iron deficiency | Expected: | | Differential | | e | | 10/24/2019, Expires: | | | | | | 09/23/2020 | + +---------+--------+ + + | Ferritin | Lab | Routin | Iron deficiency | Expected: | | | | e | | 10/24/2019, Expires: | | | | | | 09/23/2020 | + +---------+--------+ + + | Iron and Iron | Lab | Routin | Iron deficiency | Expected: | | Binding Capacity | | e | | 10/24/2019, Expires: | | | | | | 09/23/2020 | + +---------+--------+ + + | JERMAIN Tomosynthesis | Imaging | Routin | Breast cancer | Expected: | | Screening Bilateral | | e | screening, high risk | 09/23/2019, Expires: | | | | | patient Breast | 11/24/2020 | | | | | cancer screening by | | | | | | mammogram | | + +---------+--------+ + + documented as of this encounter Procedures + +--------+ + + + | Procedure Name | Priori | Date/Time | Associated Diagnosis | Comments | | | ty | | | | + +--------+ + + + | URINALYSIS WITH | Routin | 09/23/2019 | Dysuria | Results for this | | MICROSCOPIC WITH | e | 4:20 PM | | procedure are in the | | CULTURE IF INDICATED | | PST | | results section. [...] + | Mitchel, Rad Results In - 09/26/2019 8:58 AM PST EXAMINATION:US [...] | | | + +---------+ + + Urinalysis with Microscopic with Culture if Indicated (09/23/2019 4:20 PM PST) + + + + + + | Component | Value | Ref Range | Performed | Pathologist | | | | | At | Signature | + + + + + + | Color | Yellow | Pale Yellow, | [place] | | | | | Yellow | [facility] | | [...] + + | Specific | 1.025 | 1.003 - 1.030 | [place] | | | [place] | | | [facility] | | | [...] + + + + + + | WBC UA | 3-5 | <=5 /HPF | [place] | | | | | | [facility] | | [facility] | | | | | | [facility] | | + + + + + + | RBC UA | None Seen | <=5 /HPF | [place] | | | | | | [facility] | | | | [facility] | | | | | | [facility] | | + + + + + + | SQUAMOUS | Moderate (A) | None Seen /LPF | [place] | | | EPITHELIAL | | | [facility] | | [facility] | | | [facility] | | | | | | [facility] | | + + + + + + | BACTERIA UA | Few (A) | None Seen /HPF | [place] | | | | | | [facility] | | | | [facility] | | | | | | [facility] | | + + + + + + | MUCUS UA | Moderate (A) | None seen /LPF | [place] | | | | | | [facility] | | | | | | [facility] | | + + + + + + | HYALINE | Many (A) | None Seen /LPF | [place] | | | [facility] | | | [facility] | | | | | | [facility] | | + + + + + + | URINE | Urine Culture Not | | [place] | | | COMMENT | Indicated | | [facility] | | [...] + + | [facility] | [address] | [place] [address] | [phone] | | [facility] | | | | + + + + + Comprehensive Metabolic Panel (09/23/2019 3:58 PM PST) + + + + + + | Component | Value | Ref Range | Performed | Pathologist | | | | | At | Signature | + + + + + + | Na | 143 | 132 - 143 | [place] | | | | | mmol/L | [facility] | | [facility] | | | | | | [facility] | | + + + + + + | K | 3.3 | 3.3 - 4.9 | [place] | | | | | mmol/L | [facility] | | | | | [facility] | | | | | | [facility] | | + + + + + + | Cl | 107 | 95 - 108 mmol/L | [place] | | | | | | [facility] | | | | [facility] | | | | | | [facility] | | + + + + + + | CO2 | 22 (L) | 23 - 34 mmol/L | [place] | | | | | | [facility] | | [facility] | | | | | | [facility] | | + + + + + + | Anion Gap | 14 | 7 - 16 mmol/L | [place] | | | | | | [facility] | | [facility] | | | | | | [facility] | | + + + + + + | Glucose | 113 (H) | 70 - 110 mg/dL | [place] [...] + + + + | Creatinine | 0.72 | 0.60 - 1.30 | [place] | | | | | mg/dL | [facility] | | [facility] | | | | | | [facility] | | + + + + + + | eGFR if not | >60Comment: GLOMERULAR | >=60 | [place] | | | | FILTRATION | mL/min/1.73m2 | [facility] | | | [facility] | [facility] | | [facility] | | | | mL/min/1.77q9Oryp than | | LABORATORY | | | [...] + + + + | Calcium | 8.6 | 8.3 - 10.0 | [place] | | | | | mg/dL | [facility] | | | | | [facility] | | | | | | [facility] | | + + + + + + | Albumin | 3.7 | 3.0 - 4.5 g/dL | [place] | | | | | | [facility] | | | | [facility] | | | | | | [facility] | | + + + + + + | Bilirubin | 0.8 | 0.0 - 1.2 mg/dL | [place] | | | Total | | | [facility] | | | | | | [facility] | | | | | | [facility] | | + + + + + + | Total | 7.3 | 6.6 - 8.5 g/dL | [place] | | | Protein | | | [facility] | | | | | | [facility] | | | | | | [facility]ORY | | + + + + + + | AST | 27 | 0 - 38 U/L | [place] | | | | | | [facility] | | | | | [facility] | | | | | | [facility] | | + + + + + + | ALT | 35 | 14 - 59 U/L | [place] | | | | | | [facility] | | | | | [facility] | | | | | | [facility] | | + + + + + + | Alkaline | 83 | 46 - 116 U/L | [place] | | | Phosphatase | | | [facility] | | | | | [facility] | | | | | | [facility]ORY | | + + + + + + | Globulin | 3.6 | 2.4 - 4.5 g/dL | [place] [...] + + + + | BUN/Creatin | 11.1 | 7.0 - 24.0 | [place] | [...] + + | [facility] | [address] | [place] [address] | [phone] | | [facility] | | | | + + + + + Lipase (09/23/2019 3:58 PM PST) + +-------+ + + + | Component | Value | Ref Range | Performed | Pathologist | | | | | At | Signature | + +-------+ + + + | Lipase | 117 | 73 - 393 U/L | [place] [...] + + | [facility] | [address] | [place] [address] | [phone] | | [facility] | | | | + + + + + Hepatitis Panel, Acute (09/23/2019 3:58 PM PST) + + + + + + | Component | Value | Ref Range | Performed | Pathologist | | | | | At | Signature | + + + + + + | Hepatitis B | NONREACTIVEComment: | | REFERENCE | | | Surface Ag | :REFERENCE RANGE: | | [facility] | | | | NONREACTIVE | | [facility] | | | | | | - [facility] | | | | | | [place] | | + + + + + + | Hepatitis B | NONREACTIVEComment: | | REFERENCE | | | Core Ab | :REFERENCE RANGE: | | [facility] | | | IgM | NONREACTIVE | | [facility] | | | | | | - [facility] | | | | | | [place] | | + + + + + + | Hepatitis A | NONREACTIVEComment: | | REFERENCE | | | Ab IgM | :REFERENCE RANGE: | | [facility] | | | | NONREACTIVE For | | DI[facility]NO[facility] | | | | additional information, | | - [facility] | | | | please refer | | [facility] | | | | tohttp://education.[facility] | | | | | | diagnostics.CamGSM/faq/FAQ2 | | | | | | 02(This link is being | | | | | | provided for | | | | | | informational/ | | | | | | educational purposes | | | | | | only.) | | | | + + + + + + | Hepatitis C | NONREACTIVE | | REFERENCE | | | Ab | | | [facility] | | | | | | [facility] | | | | | | - [facility] | | | | | | [place] | | + + + + + + | Signal/Cuto | 0.01Comment: HCV | | REFERENCE | | | ff | antibody was | | [facility] | | | | non-reactive. There is | | DIAGNOSTICS | | | | no laboratory evidence | | - [facility] | | | | ofHCV infection. In most | | [facility] | | | | cases, no further | | | | | | action is required. | | | | | | However, if recent HCV | | | | | | exposure is suspected, a | | | | | | test for HCV RNA (test | | | | | | code 41924) is | | | | | | suggested. :REFERENCE | | | | | | RANGE: NONREACTIVE | | | | | | | | | | | | (SIGNAL TO CUTOFF <1.00) | | | | | | For additional test | | | | | | information and guidance | | | | | | on interpreting | | | | | | results, | | | | | | seehttps://education.que | | | | | | BUX.CamGSM/faq/FA | | | | | | Q22v1 Test(s) performed | | | | | | at: [facility] | | | | | | [facility] | | | | | | [address], | | | | | | Judah, Team Leader | | | | | | [address] [facility] | | | | | | [facility] | | | | | | [place] [id number] | | | | | | CLIA #[id number] | | | | + + + + + + + + | Specimen | + + | Blood | + + + + + + + | Performing | Address | City/State/Zipcode | Phone Number | | Organization | | | | + + + + + | REFERENCE LAB | [address] [facility] | [place], [place] | | | [facility] - | | [address] | | | [place] | | | | + + + + + documented in this encounter Visit Diagnoses + + | Diagnosis | + + | Essential hypertension - Primary Unspecified essential hypertension | + + | Iron deficiency Other disorders of iron metabolism | + + | Asthma due to environmental allergies | + + | Dysuria | + + | Pain of upper abdomen Abdominal pain, other specified site | + + | Breast cancer screening, high risk patient Screening mammogram for high-risk patient | + + | Breast cancer screening by mammogram | + + documented in this encounter
--- OUTSIDE RECORDS SUMMARY | ~2019-09-30 | XMS | Encounter Summary ---
Demographics + + + | Address | [address] | | | [place] [address] | + + + | Home Phone [...] Team Providers + +------+ + | Care Supervisory Forester Name | Role | Phone | + [...] | [facility] [address] | [place] [address] | | | | [address] [place], | [phone] | | | | | [place] [address] | | | | | | [phone] | | | +--------+ + + + [...] | | | | | [place] [address] | | | | | | [phone] | | | | | | | | +--------+ + + + + | 10/30/ | Office | Primary Care | Erika Ernst, | | | 2019 | Visit | | DO [address] | | | | | | [place] [address] | | | | | | [phone] | | | | | | | [...] [place] | | | | | | [address] | | | | | | [phone] | | | | | | | | +--------+ + + + + | 02/09/ | Office | Neurology | Dhara, | | | 2020 | Visit | | [address] | | | | | [address] [place], | | | | | | [place] [address] | | | | | | [phone] | | | | | | | | +--------+ + + + + documented as of this encounter Visit Diagnoses Not on filedocumented in this encounter"
--- OUTSIDE RECORDS SUMMARY | ~2019-09-30 | XMS | Encounter Summary ---
Demographics + + + | Address | [address] | | | [place] [address] | + + + | Home Phone [...] Team Providers + +------+ + | Care Punch Card Operator Name | Role | Phone | + +------+ + | Erika Ernst DO | PCP | | + +------+ + Reason for Visit + + + | Reason | Comments | + + + | Follow-up | labs | + + + Encounter Details +--------+---------+ + + + | Date | Type | Department | Care Team | Description | +--------+---------+ + + + | 06/27/ | Office | [facility] | Erika Ernst, | Acquired | | 2018 | Visit | [facility] | DO [address] | hypothyroidism | | | | [facility] [address] | [place] [address] | (Primary Dx); | | | | [address] [place], | [phone] | Vitamin D deficiency | | | | [place] [address] | | | | | | [phone] | | | +--------+---------+ + + + [...] + | Blood Pressure | 130/84 | 06/27/2018 4:15 PM | | | | | PDT | | + + + + + | Pulse | 88 | 06/27/2018 4:15 PM | | | | | PDT | | + + + + + | Temperature | - | - | | + + + + + | Respiratory Rate | 16 | 06/27/2018 4:15 PM | | | | | PDT | | + + + + + | Oxygen Saturation | 98% | 06/27/2018 4:15 PM | | | | | PDT | | + + + + + | Inhaled Oxygen | - | - | | | Concentration | | | | + + + + + | Weight | 166.5 kg (367 lb) | 06/27/2018 4:15 PM | | | | | PDT | | + + + + + | Height | 177.8 cm (5' 10") | 06/27/2018 4:15 PM | | | | | PDT | | + + + + + | Body Mass Index | 52.66 | 06/27/2018 4:15 PM | | | | | PDT | | + + + + + documented in this encounter Progress Notes Erika Ernst DO - 06/27/2018 4:00 PM PDTFormatting of this note might be different fro m the original. Subjective: Patient ID: Andrea Suh is a 28 y.o. female. Here to FU for labs on hypothyroidism and recheck on low vitamin D level. No symptoms of th yroid dysregulation. She states doing well otherwise. Asthma is now stable. She had flu manuel t at [facility] last week she states. VS stable. Review of Systems Constitutional: Negative. Respiratory: Negative. Cardiovascular: Negative. Gastrointestinal: Negative. Endocrine: Negative. Allergic/Immunologic: Negative. Psychiatric/Behavioral: Negative. Social History Social History [...] Tape Rash Outpatient Encounter Prescriptions as of 06/27/2018 Medication Sig Dispense Refill amLODIPine (NORVASC) 5 [...] PM 90 tablet 5 Cholecalciferol (VITAMIN D3) 14292 units TABS Take 1 tablet by mouth [...] facility-administered encounter medications on file as of 06/27/2018. Objective: BP 130/84 | Pulse 88 | Resp 16 | Ht 1.778 m [...] Judgment and thought content normal. Assessment: 1. Acquired hypothyroidism TSH 2. Vitamin D deficiency Vitamin D, Deficiency Screen (25-Hydroxy) Plan: Recheck on lab today for TSH and vitamin D level. documented in this en counter Plan of Treatment +--------+ + + + + | Date | Type | Specialty | Care Team | Description | +--------+ + + + + | 10/01/ | Office | Primary Care | Erika Ernst, | | | 2018 | Visit | | DO [address] [facility] | | | | | | [place] [address] | | | | | | [phone] | | | | | | | | +--------+ + + + + | 10/30/ | Office | Primary Care | Erika Ernst, | | | 2019 | Visit | | DO [address] | | | | | | [place] [address] | | | | | | [phone] | | | | | | | [...] [place] | | | | | | [address] | | | | | | [phone] | | | | | | | | +--------+ + + + + | 02/09/ | Office | Neurology | Dhara, | | | 2019 | Visit | | [address]WA[address] | | | | | [address] [place], | | | | | | [place] [address] | | | | | | [phone] | | | | | | | | +--------+ + + + + documented as of this encounter Procedures + +--------+ + + + | Procedure Name | Priori | Date/Time | Associated Diagnosis | Comments | | | ty | | | | + +--------+ + + + | VITAMIN D, | Routin | 06/27/2018 | Vitamin D | Results for this | | DEFICIENCY SCREEN | e | 4:41 PM | deficiency | procedure are in the | | (25-HYDROXY) | | PDT | | results section. | + +--------+ + + + documented in this encounter Results Vitamin D, Deficiency Screen (25-Hydroxy) (06/27/2018 4:41 PM PDT) + +-------+ + + + | Component | Value | Ref Range | Performed | Pathologist | | | | | At | Signature | + +-------+ + + + | Vitamin D, | 46 | 30 - 100 ng/mL | [place] | | | 25 Hydroxy | | | [facility] | | | [...] + + | [facility] | [address] | [place] [address] | [phone] | | [facility]ITAL [facility] | | | | + + + + + TSH (06/27/2018 4:41 PM PDT) + +-------+ + + + | Component | Value | Ref Range | Performed | Pathologist | | | | | At | Signature | + +-------+ + + + | TSH | 3.03 | 0.36 - 3.74 | [place] | [...] + + | [facility] | [address] | [place] [address] | [phone] | | [facility]ITAL [facility] | | | | + + + + + documented in this encounter Visit Diagnoses + + | Diagnosis | + + | Acquired hypothyroidism - Primary Unspecified hypothyroidism | + + | Vitamin D deficiency Unspecified vitamin D deficiency | + + documented in this encounter
--- OUTSIDE RECORDS SUMMARY | ~2019-09-30 | XMS | Encounter Summary ---
Demographics + + + | Address | [address] | | | [place] [address] | + + + | Home Phone [...] Team Providers + +------+ + | Care Records Management Specialist Name | Role | Phone | + +------+ + | Erika Ernst DO | PCP | | + +------+ + Reason for Visit +--------+ + | Reason | Comments | +--------+ + | Other | nurse talk | +--------+ + Encounter Details +--------+ + + + + | Date | Type | Department | Care Team | Description | +--------+ + + + + | 09/11/ | Clinical | [facility] | Erika Ernst, | | | 2018 | Support | [facility] | DO [address] | | | | | [facility] [address] | [place] [address] | | | | | [address] [place], | [phone] | | | | | [place] [address] | | | | | | [phone] | | | +--------+ + + + [...] documented as of this encounter Progress Notes Eden Brown LPN - 09/11/2019 9:00 AM PSTPatient came in stating she seen Janel the nutrisonist, she states Janel wanted the patient to have her iron drawn, she states that Kain zelaya is worried as the patient has lost 20 pounds in 1 month, and has had hair loss as well. Talked to Dr. Ernst, and Dr. Ernst states the patient has an appointment on Monday, and w ill have her draw labs then. Patient states understanding. Eden Brown LPN documented in this encounter Plan of Treatment +--------+ + + + + | Date | Type | Specialty | Care Team | Description | +--------+ + + + + | 10/01/ | Office | Primary Care | Erika Ernst, | | | 2018 | Visit | | DO [address] | | | | | | [place] [address] | | | | | | [phone] | | | | | | | | +--------+ + + + + | 10/30/ | Office | Primary Care | Erika Ernst, | | | 2019 | Visit | | DO [address] | | | | | | [place] [address] | | | | | | [phone] | | | | | | | [...] [place] | | | | | | [address] | | | | | | [phone] | | | | | | | | +--------+ + + + + | 02/09/ | Office | Neurology | Dhara, | | | 2019 | Visit | | [address] | | | | | | [address] [place], | | | | | | [place] [address] | | | | | | [phone] | | | | | | | | +--------+ + + + + documented as of this encounter Visit Diagnoses Not on filedocumented in this encounter"
--- OUTSIDE RECORDS SUMMARY | ~2019-09-30 | XMS | Encounter Summary ---
Demographics + + + | Address | [address] | | | [place] [address] | + + + | Home Phone [...] Team Providers + +------+ + | Care Paid Search Marketing Analyst Name | Role | Phone | [...] | [address] [place], [place] | [place] [address] | | | | | [address] | [phone] | | | | | [phone] | | | +--------+ + + + [...] | | | | | [place] [address] | | | | | | [phone] | | | | | | | | +--------+ + + + + | 10/30/ | Office | Primary Care | Erika Ernst, | | | 2019 | Visit | | DO [address] | | | | | | [place] [address] | | | | | | [phone] | | | | | | | [...] [place] | | | | | | [address] | | | | | | [phone] | | | | | | | | +--------+ + + + + | 02/09/ | Office | Neurology | Dhara, | | | 2019 | Visit | | [address] | | | | | | [address] [facility], | | | | | | [place] [address] | | | | | | [phone] | | | | | | | [...] + + + + | Color | YELLOW | YELLOW | EXTERNAL | | | | | | LAB | | + + + + + + | Specific | 1.025 | 1.005 - 1.030 | EXTERNAL | | | [place], | | | LAB | | | [...] + + + | WBC UA | 0-2 | </= 5 /HPF | EXTERNAL | | | | | [...] + + + + | SQUAMOUS | MODERATE | FEW /LPF | EXTERNAL | | | EPITHELIAL | | | LAB | | | UA | | | | | + + [...]
--- OUTSIDE RECORDS SUMMARY | ~2019-09-30 | XMS | Encounter Summary ---
Demographics + + + | Address | [address] | | | [place] [address] | + + + | Home Phone [...] Providers + +------+ + | Care Industrial Nurse Name | Role | Phone | + +------+ + | Erika Ernst DO | PCP | | + +------+ + Reason for Visit + + + | Reason | Comments | + + + | Blood Pressure Check | | | (Screening) | | + + + Encounter Details +--------+ + + + + | Date | Type | Department | Care Team | Description | +--------+ + + + + | 03/28/ | Clinical | [place] [facility] | Erika Ernst, | | | 2019 | Support | [facility] | [address] | | | | | MEDICAL CLIN[facility] [address] | [place] [address] | | | | | [address] [place], | [phone] | | | | | [place] [address] | | | | | | [phone] | Denise Mcgregor, | | | | | | PAPERHANGER CONTRACTOR [address] | | | | | | [place], [place] | | | | | | [address] | | | | | | [phone] | | | | | | | [...] +---------+ + + | Blood Pressure | 126/89 | 03/28/2019 10:32 AM | left arm large cuff | | | | PDT | auto | + +---------+ + + | Pulse | 73 | 03/28/2019 10:32 AM | | | | | PDT | | + +---------+ + + | Temperature | - | - | | + +---------+ + + | Respiratory Rate | 20 | 03/28/2019 10:32 AM | | | | | PDT | | + +---------+ + + | Oxygen Saturation | 99% | 03/28/2019 10:32 AM | | | | | PDT [...] + + documented in this encounter Progress Desi Kim RN - 03/28/2019 10:00 AM PDT Andrea Henaoemiliasuresh come to the clinic today for a blood pressure check. Vital Signs today were Vitals: 03/28/19 1032 BP: 126/89 Pulse: 73 Resp: 20 PainSc: 4 Patients current medication list is Current Outpatient Medications on File Prior to [...] mouth. Once a week Cholecalciferol (VITAMIN D3) 53184 units TABS Take 1 tablet by mouth Once a week for 16 doses. (Patient not taking: Reported on 03/28/2019) 16 tablet 0 cyclobenzaprine (FLEXERIL) 10 mg tablet TID prn 30 tablet 2 diclofenac (VOLTAREN) 1% GEL Apply 4 g topically 4 times daily. 100 g 2 diclofenac (VOLTAREN) 1% GEL Apply 4 g topically 3 times daily. (Patient not taking: Re ported on 03/28/2019) 100 g 1 diphenhydrAMINE (BENADRYL) 25 MG [...] as needed. Prn dizziness 60 tablet 0 methocarbamol (ROBAXIN) 500 mg tablet Take one tablet 30-60 minutes prior to physical t herapy for TMJ (Patient not taking: Reported on 03/28/2019) 2 tablet 0 montelukast (SINGULAIR) 10 mg tablet Take 1 tablet by mouth nightly. 30 tablet 11 [] predniSONE (DELTASONE) 20 mg tablet Take 2 tablets by mouth Daily for 5 days. 10 tablet 0 silver sulfADIAZINE (SILVADENE) 1% cream Apply topically to legs for sunburn healing da jayna X 7 days or until healed. (Patient not taking: Reported on 03/28/2019) 50 g 1 traMADol (ULTRAM) 50 mg tablet Take 1 tablet by mouth every 6 hours as needed. (Patient not taking: Reported on 03/28/2019) 30 tablet 0 No current facility-administered medications on file prior to visit. Desi Mayorga RN documented in this enc ounter Plan of Treatment +--------+ + + + + | Date | Type | Specialty | Care Team | Description | +--------+ + + + + | 10/01/ | Office | Primary Care | Erika Ernst, | | | 2018 | Visit | | DO [address] [place] | | | | | | [place] [address] | | | | | | [phone] | | | | | | | | +--------+ + + + + | 10/30/ | Office | Primary Care | Erika Ernst, | | | 2019 | Visit | | DO [address] [place] | | | | | | [place] [address] | | | | | | [phone] | | | | | | | [...] [place] | | | | | | [address] | | | | | | [phone] | | | | | | | | +--------+ + + + + | 02/09/ | Office | Neurology | Dhara, | | | 2019 | Visit | | [address] | | | | | [address] [place], | | | | | | [place] [address] | | | | | | [phone] | | | | | | | | +--------+ + + + + documented as of this encounter Visit Diagnoses Not on filedocumented in this encounter"
--- OUTSIDE RECORDS SUMMARY | ~2019-09-30 | XMS | Encounter Summary ---
Demographics + + + | Address | [address] | | | [place] [address] | + + + | Home Phone [...] Team Providers + +------+ + | Care Leather Piece Inspector Name | Role | Phone | [...] Description | +--------+---------+ + + + | 11/23/ | Office | [place] [facility] | KleverErika epps, | Essential | | 2019 | Visit | [facility] | DO [address] | hypertension | | | | MEDICAL CLINIC [address] | [place] [address] | (Primary Dx); | | | | [address] [place], | [phone] | Vitamin D | | | | [place] [address] | | deficiency; | | | | [phone] | | Screening for | | | | | | thyroid disorder; | | | | | | Asthma due to | | | | | | environmental | | | | | | allergies; | | | | | | Hypertension, | | | | | | unspecified type | +--------+---------+ + + + Social [...] + + + | Blood Pressure | 136/78 | 11/23/2018 4:21 PM | | | | | PST | | + + + + + | Pulse | 72 | 11/23/2018 4:21 PM | | | | | PST | | + + + + + | Temperature | - | - | | + + + + + | Respiratory Rate | 20 | 11/23/2018 4:21 PM | | | | | PST | | + + + + + | Oxygen Saturation | 97% | 11/23/2018 4:21 PM | | | | | PST | | + + + + + | Inhaled Oxygen | - | - | | | Concentration | | | | + + + + + | Weight | 169.6 kg (373 lb | 11/23/2018 4:21 PM | | | | 12.8 oz) | PST | | + + + + + | Height | 177.8 cm (5' 10") | 11/23/2018 4:21 PM | | | | | PST | | + + + + + | Body Mass Index | 53.63 | 11/23/2018 4:21 PM | | | | | PST | | + + + + + documented in this encounter Progress Erika Cespedes DO - 11/23/2018 4:30 PM PSTFormatting of this note might be different fro m the original. Subjective: Patient ID: Andrea Suh is a 28 y.o. female. Here to get change in BP med. She has asthma due to environmental allergies and is going to do allergy shots so can not be on the beta irma. We had started the beta irma due to the SE of anxiety reduction and she does feel it has helped this as well as HTN so we will m onitor for increase in anxiety when off this med. She will wean off the toprol over the nex t week and we will start cozaar now to replace. Discussed SE. She would like to get recheck on labs today and screen for thyroid. She did take thyroid med at one time but the past 2 y r labs have been normal TSH. She also would like a recheck on her vitamin D level that has b een low in the past. States some increased fatigue and some nose bleeds but does have a debra ated septum causing nasal issues. She is a non-smoker. Review of Systems As above Objective: BP 136/78 | Pulse 72 | Resp 20 | Ht 1.778 m (5' 10") | Wt (!) 169.6 kg (373 lb 12.8 oz) | LMP (LMP Unknown) | SpO2 97% | ? No | BMI 53.63 kg/m Physical Exam Constitutional: She is oriented to person, place, and time. She appears well-developed and well-nourished. No distress. HENT: Head: Normocephalic and atraumatic. Eyes: Right eye exhibits no discharge. Left eye exhibits no discharge. No scleral icterus. Cardiovascular: Normal rate, regular rhythm and normal heart sounds. No murmur heard. Pulmonary/Chest: Effort normal and breath sounds normal. No respiratory distress. She has n o wheezes. Neurological: She is alert and oriented to person, place, and time. Psychiatric: She has a normal mood and affect. Her behavior is normal. Assessment: 1. Essential hypertension CBC with Differential Comprehensive Metabolic Panel 2. Vitamin D deficiency Vitamin D, Deficiency Screen (25-Hydroxy) 3. Screening for thyroid disorder TSH 4. Asthma due to environmental allergies metoprolol succinate (TOPROL-XL) 25 mg 24 hr tablet Plan: She will wean off the Toprol and we will start cozaar now for HTN control. Lab, CMP, CBC, vitamin D and TSH. documented in this en counter Plan of Treatment +--------+ + + + + | Date | Type | Specialty | Care Team | Description | +--------+ + + + + | 10/01/ | Office | Primary Care | Erika Ernst, | | | 2018 | Visit | | DO [address] [place] | | | | | | [place] [address] | | | | | | [phone] | | | | | | | | +--------+ + + + + | 10/30/ | Office | Primary Care | Erika Ernst, | | | 2019 | Visit | | DO [address] [place] | | | | | | [place] [address] | | | | | | [phone] | | | | | | | [...] [place] | | | | | | [address] | | | | | | [phone] | | | | | | | | +--------+ + + + + | 02/09/ | Office | Neurology | Dhara, | | | 2019 | Visit | | [address] | | | | | | [address] [facility] [place], | | | | | | [place] [address] | | | | | | [phone] | | | | | | | | +--------+ + + + + documented as of this encounter Procedures + +--------+ + + + | Procedure Name | Priori | Date/Time | Associated Diagnosis | Comments | | | ty | | | | + +--------+ + + + | VITAMIN D, | Routin | 11/23/2018 | Vitamin D | Results for this | | DEFICIENCY SCREEN | e | 4:52 PM | deficiency | procedure are in the | | (25-HYDROXY) | | PST | | results section. | + +--------+ + + + documented in this encounter Results Vitamin D, Deficiency Screen (25-Hydroxy) (11/23/2018 4:52 PM PST) + +--------+ + + + | Component | Value | Ref Range | Performed | Pathologist | | | | | At | Signature | + +--------+ + + + | Vitamin D, | 26 (L) | 30 - 100 ng/mL | [place] [...] + + | [place] [facility] | [address] | [place] [address] | [phone] | | [facility] | | | | + + + + + TSH (11/23/2018 4:52 PM PST) + + + + + + | Component | Value | Ref Range | Performed | Pathologist | | | | | At | Signature | + + + + + + | TSH | 3.99 (H) | 0.36 - 3.74 | [place] | [...] + + | [place] [facility] | [address] | [place] [address] | [phone] | | [facility] | | | | + + + + + Comprehensive Metabolic Panel (11/23/2018 4:52 PM PST) + + + + + + | Component | Value | Ref Range | Performed | Pathologist | | | | | At | Signature | + + + + + + | Na | 145 (H) | 132 - 143 | [place] | | | | | mmol/L | [facility] | | | | | | [facility] | | + + + + + + | K | 3.8 | 3.3 - 4.9 | [place] | | | | | mmol/L | [facility] | | | | | | [facility] | | + + + + + + | Cl | 110 (H) | 95 - 108 mmol/L | [place] | | | | | | [facility] | | | | | | [facility] | | + + + + + + | CO2 | 23 | 23 - 34 mmol/L | [place] | | | | | | [facility] | | | | | | [facility] | | + + + + + + | Anion Gap | 12 | 7 - 16 mmol/L | [place] | | | | | | [facility] | | | | | | [facility] | | + + + + + + | Glucose | 105 | 70 - 110 mg/dL | [place] | | | | | | [facility] | | | | | | [facility] | | + + + + + + | BUN | 15 | 5 - 26 mg/dL | [place] | | | | | | [facility] | | | | | | [facility] | | + + + + + + | Creatinine | 0.74 | 0.60 - 1.30 | [place] | | | | | mg/dL | [facility] | | [facility] | | | | | | [facility] | | + + + + + + | eGFR if not | >60Comment: GLOMERULAR | >=60 | [place] | | | | FILTRATION | mL/min/1.73m2 | [facility] | | | [facility] | RATE,ESTIMATED | | [facility]OS[facility] | | | | mL/min/1.42t0Erwr than | | LABORATORY | | | [...] + + + + | Calcium | 8.5 | 8.3 - 10.0 | [place] | [...] + + + + | Bilirubin | 0.4 | 0.0 - 1.2 mg/dL | [place] | | | Total | | | [facility] | | | | | | [facility] | | + + + + + + | Total | 7.4 | 6.6 - 8.5 g/dL | [place] | | | Protein | | | [facility] | | | | [facility] | | | | | | LAB[facility]ATORY | | + + + + + + | AST | 24 | 0 - 38 U/L | [place] | | | | | | [facility] | | | | | | [facility] | | + + + + + + | ALT | 27 | 14 - 59 U/L | [place] | | | | | | [facility] | | | | | | [facility] | | + + + + + + | Alkaline | 95 | 46 - 116 U/L | [place] | | | Phosphatase | | | [facility] | | | | | | LAB[facility]ORY | | + + + + + + | Globulin | 3.7 | 2.4 - 4.5 g/dL | [place] [...] + + + + | BUN/Creatin | 20.3 | 7.0 - 24.0 | [place] | [...] + + | [place] [facility] | [address] | [place] [address] | [phone] | | [facility] | | | | + + + + + documented in this encounter Visit Diagnoses + + | Diagnosis | + + | Essential hypertension - Primary Unspecified essential hypertension | + + | Vitamin D deficiency Unspecified vitamin D deficiency | + + | Screening for thyroid disorder | + + | Asthma due to environmental allergies | + + | Hypertension, unspecified type | + + documented in this encounter
--- OUTSIDE RECORDS SUMMARY | ~2019-09-30 | XMS | Encounter Summary ---
Demographics + + + | Address | [address] | | | [place] [address] | + + + | Home Phone [...] Team Providers + +------+ + | Care Bisque Ware Dipper Name | Role | Phone | + [...] Description | +--------+--------+ + + + | 10/30/ | Refill | [place] [facility] | Erika Ernst, | Medication Refill | | 2018 | | [facility] | DO [address] | | | | | MEDICAL CLINIC [address] | [place] [address] | | | | | [address] [place], | [phone] | | | | | [place] [address] | | | | | | [phone] | | | +--------+--------+ + + + [...] | | | | | [place] [address] | | | | | | [phone] | | | | | | | | +--------+ + + + + | 10/30/ | Office | Primary Care | Erika Ernst, | | | 2019 | Visit | | DO [address] [place] | | | | | | [place] [address] | | | | | | [phone] | | | | | | | [...] [place] | | | | | | [address] | | | | | | [phone] | | | | | | | | +--------+ + + + + | 02/09/ | Office | Neurology | Dhara, | | | 2019 | Visit | | [address] | | | | | [address] [place], | | | | | | [place] [address] | | | | | | [phone] | | | | | | | | +--------+ + + + + documented as of this encounter Visit Diagnoses + + | Diagnosis | + + | Depression, unspecified depression type - Primary | + + documented in this encounter"
--- OUTSIDE RECORDS SUMMARY | ~2019-09-30 | XMS | Encounter Summary ---
Demographics + + + | Address | [address] | | | [place] [address] | + + + | Home Phone | | + + + | Preferred Language | Unknown | + + + | Marital Status | Single | + + + | Hoahaoism Affiliation | Unknown | + + + [...] Team Providers + +------+ + | Care Needle Molder Name | Role | Phone | [...] | | | of left | [place] [address] | [place] [address] | | | | | ankle, | Phone: | Phone: | | | | | initial | [phone] | [phone] | | | | | encounter | Fax: | Fax: | | | | | Procedures | [phone] | [phone] | | | | | PT EVAL AND | | | | | | | TREAT | | | +--------+ + + + + + Encounter Details +--------+ + + + + | Date | Type | Department | Care Team | Description | +--------+ + + + + | 07/24/ | Hospital | [facility] [facility] | Erika Ernst, | Sprain of | | 2017 | Encounter | HOSPITAL TH[facility]APY PT | DO [address] | calcaneofibular | | | | [address] [place] | [place] [address] | ligament of left | | | | [place], [place] | [phone] | ankle, initial | | | | [address] | | encounter | | | | [phone] | Leila Maldonado, PT | | +--------+ + + + [...] documented as of this encounter Progress Notes Leila Maldonado, PT - 07/24/2018 3:36 PM PDTFormatting of this note might be different fr om the original. [facility] THERAPY PT [address] [place] [address] Physical Therapy Daily Treatment Note Date: 07/24/2018 Patient Information Patient Name: Andrea Suh Date of : 1990 Age: 28 y.o. Encounter Diagnoses Code Name Primary? S93.412A Sprain of calcaneofibular ligament of left ankle, initial encounter Date of Onset: 06/11/2018 Referring Provider: Erika Ernst DO Objective Pain Assessment: Pain Rating Pre Assessment: 2 Location: L ankle Today's Treatment Patient Name: Andrea Suh/: 1990/ Start Time: 1430 Stop time: 1515 Duration: 45 minutes Timed Treatment Codes: 45 minutes # of PT Visits to Date: 6 Visit Summary: S: Pt reports that ankle is feeling pretty good with just mild pain. Pt rece ntly had surgery on R wrist and is nervous about balancing when unable to use hands to catch herself and also unable to do some of the theraband exercises that require holding band. A: Pt able to progress strenghtening and balance intensity today and tolerated well, though di d report that ankle just felt tired end of session. Pt given alternative methods for HEP d/t inability to use R hand. Pt with poor balance bilaterally and with overreliance on using nam nds to catch balance, and apparent trendelenberg with SL balance. Pt has difficulty disassoc iating toe movements, especially with L foot. Pt will benefit from both hip and toe strength ening to improve balance reactions and protection of ankles during dynamic activities. Pt ab le to complete counterclockwise ankle circles without increased pain today. Next Visit Information: progress LE strength with leg press, step ups; balance with tandem ambulation eyes closed airex exercises. Hip and toe strengthening and motor control. Therapy Interventions HEP: NEW: Using RTB in door jam rather than holding onto with hands. Discontinue PF with th eraband in favor of SL heel raise with PRESCHOOL ASSISTANT. ONGOING: SLS on even surface 3x30 seconds 1x/day // Double leg heel raise 3x10 3x/wk // forward/lateral step ups on 8" step 3x10 3x/wk each // standing achilles stretch 3x30 seconds 1x/day. // 4 way ankle PRE yellow theraband 3x10 each direction 3x/wk. // Ankle inversion/eversion 3x10 progressing to 20 1x/day // ankle ABC 's 3x/day. // Ankle pumps 3x10 progressing to 20 repetitions 1x/day // ankle circles 3x10 pr ogressing to 20 repetitions each direction 1x/day PT INTERVENTION 1: Ther ex: Recumbent bike x5' for ankle mobility and increased circulation . BAPS board AP, lateral, CW, CCW 1-2' each. RTB DF, inv, ev x20 each. DL heel raise 2x10, S L heel raise x15 each. BW squat to chair 3x10 (20') PT INTERVENTION 2: NMR: SL stance on bosu with PRESCHOOL ASSISTANT 3x15 sec. SL stance on ground no PRESCHOOL ASSISTANT 3x2 0 sec. Step ups to foam airex barefoot 4x10. Toe yoga - great toe ext, little toe ext, piano chisholm, great toe abd, toe splay, short foot approx 1 min each for each foot. (x25') Assessment Rehabilitation potential: Patient demonstrates good potential to achieve established goals to address the documented impairments by participating in skilled physical therapy services. Electronically signed by: Leila Maldonado, PT, 07/24/2018 15:36 Patient Name: Andrea Steelesuresh/: 1990/ documented in this e ncounter Plan of Treatment +--------+ + + + + | Date | Type | Specialty | Care Team | Description | +--------+ + + + + | 10/01/ | Office | Primary Care | Erika Ernst, | | | 2018 | Visit | | DO [address] [place] | | | | | | [place] [address] | | | | | | [phone] | | | | | | | | +--------+ + + + + | 10/30/ | Office | Primary Care | Erika Ernst, | | | 2019 | Visit | | DO [address] [place] | | | | | | [place] [address] | | | | | | [phone] | | | | | | | [...] [place] | | | | | | [address] | | | | | | [phone] | | | | | | | | +--------+ + + + + | 02/09/ | Office | Neurology | Dhara, | | | 2019 | Visit | | [address] | | | | | [address] [place], | | | | | | [place] [address] | | | | | | [phone] | | | | | | | | +--------+ + + + + documented as of this encounter Visit Diagnoses + + | Diagnosis | + + | Sprain of calcaneofibular ligament of left ankle, initial encounter | + + documented in this encounter
--- OUTSIDE RECORDS SUMMARY | ~2019-09-30 | XMS | Encounter Summary ---
Demographics + + + | Address | [address] | | | [place] [address] | + + + | Home Phone [...] Team Providers + +------+ + | Care Adjunct Instructor Chemistry Name | Role | Phone | + +------+ + | Erika Ernst DO | PCP | | + +------+ + Reason for Visit + + + | Reason | Comments | + + + | Blood Pressure | elevated | + + + Encounter Details +--------+ + + + + | Date | Type | Department | Care Team | Description | +--------+ + + + + | 07/18/ | Telephone | [facility] [facility] | Keith Ernstleslie Salter, | Blood Pressure | | 2019 | | [facility] | DO [address] | (elevated) | | | | MEDICAL CLIN[facility] [address] | [place] [address] | | | | | [address] [place], | [phone] | | | | | [place] [address] | | | | | | [phone] | | | +--------+ + + + [...] [place] | | | | | | [place] [address] | | | | | | [phone] | | | | | | | | +--------+ + + + + | 10/30/ | Office | Primary Care | Erika Ernst, | | | 2019 | Visit | | DO [address] [place] | | | | | | [place] [address] | | | | | | [phone] | | | | | | | [...] [place] | | | | | | [address] | | | | | | [phone] | | | | | | | | +--------+ + + + + | 02/09/ | Office | Neurology | Dhara, | | | 2020 | Visit | | [address] | | | | | [address] [place], | | | | | | [place] [address] | | | | | | [phone] | | | | | | | | +--------+ + + + + documented as of this encounter Visit Diagnoses Not on filedocumented in this encounter"
--- OUTSIDE RECORDS SUMMARY | ~2019-09-30 | XMS | Encounter Summary ---
Demographics + + + | Address | [address] | | | [place] [address] | + + + | Home Phone [...] Team Providers + +------+ + | Care Assistant Chief Train Dispatcher Name | Role | Phone | + +------+ + | Erika Ernst DO | PCP | | + +------+ + Reason for Visit + + + | Reason | Comments | + + + | Medication | | | Management | | + + + Encounter Details +--------+ + + + + | Date | Type | Department | Care Team | Description | +--------+ + + + + | 09/18/ | Telephone | [place] [facility] | McgregorEloiseDenise | Medication | | 2019 | | [facility] | Donte, INDUSTRIAL CHEMIST [address] | Management | | | | MEDICAL CLIN[facility] [address] | [place], [place] | | | | | [address] [place], | [address] | | | | | [place] [address] | [phone] | | | | | [phone] | | | +--------+ + + + [...] | | | | | [place] [address] | | | | | | [phone] | | | | | | | | +--------+ + + + + | 10/30/ | Office | Primary Care | Erika Ernst, | | | 2019 | Visit | | DO [address] [place] [address] | | | | | | [place] [address] | | | | | | [phone] | | | | | | | [...] [place] | | | | | | [address] | | | | | | [phone] | | | | | | | | +--------+ + + + + | 02/09/ | Office | Neurology | Dhara, | | | 2019 | Visit | | [address] | | | | | | [address] [facility], | | | | | | [place] [address] | | | | | | [phone] | | | | | | | | +--------+ + + + + documented as of this encounter Visit Diagnoses + + | Diagnosis | + + | Hypertension, unspecified type - Primary | + + documented in this encounter"
--- OUTSIDE RECORDS SUMMARY | ~2019-09-30 | XMS | Encounter Summary ---
Demographics + + + | Address | [address] | | | [place] [address] | + + + | Home Phone [...] Team Providers + +------+ + | Care Collections Professional Name | Role | Phone | [...] 07/17/ | Telephone | [facility] [facility] | Luis Nichole MD | Patient Concerns | | 2019 | | HOSPITAL [facility] | [address] | | | | | CLINIC [address] | [place] | | | | | [address] [place], | [address] | | | | | [place] [address] | | | | | | [phone] | | | +--------+ + + + [...] | | | | | [place] [address] | | | | | | [phone] | | | | | | | | +--------+ + + + + | 10/30/ | Office | Primary Care | Erika Ernst, | | | 2019 | Visit | | DO [address] | | | | | | [place] [address] | | | | | | [phone] | | | | | | | [...] [place] | | | | | | [address] | | | | | | [phone] | | | | | | | | +--------+ + + + + | 02/09/ | Office | Neurology | Dhara, | | | 2020 | Visit | | [address] | | | | | | [address] [place], | | | | | | [place] [address] | | | | | | [phone] | | | | | | | | +--------+ + + + + documented as of this encounter Visit Diagnoses Not on filedocumented in this encounter"
--- OUTSIDE RECORDS SUMMARY | ~2019-09-30 | XMS | Encounter Summary ---
Demographics + + + | Address | [address] | | | [place] [address] | + + + | Home Phone [...] Team Providers + +------+ + | Care Terrazzo Journeyman Name | Role | Phone | + +------+ + PCP | Unavailable | + +------+ + Encounter Details +--------+ + + + + | Date | Type | Department | Care Team | Description | +--------+ + + + + | 01/24/ | [facility] | Cody Go | | | 2017 | Encounter | [facility] | [address] [place] | | | | | WALK-IN CLIN[facility] [address] | [facility], [place] | | | | | [address] [place], | [address] | | | | | [place] [address] | [phone] | | | | | [phone] | | | +--------+ + + + [...] | | | | | [place] [address] | | | | | | [phone] | | | | | | | | +--------+ + + + + | 10/30/ | Office | Primary Care | Erika Ernst, | | | 2019 | Visit | | DO [address] | | | | | | [place] [address] | | | | | | [phone] | | | | | | | [...] [place] | | | | | | [address] | | | | | | [phone] | | | | | | | | +--------+ + + + + | 02/09/ | Office | Neurology | Dhara, | | | 2019 | Visit | | [address] | | | | | | [address] [place], | | | | | | [place] [address] | | | | | | [phone] | | | | | | | | +--------+ + + + + documented as of this encounter Visit Diagnoses Not on filedocumented in this encounter"
--- OUTSIDE RECORDS SUMMARY | ~2019-09-30 | XMS | Encounter Summary ---
Demographics + + + | Address | [address] | | | [place] [address] | + + + | Home Phone [...] Organization | [facility] | | | and [place] | + [...] Team Providers + +------+ + | Care Music Teacher Name | Role | Phone | + +------+ + | Erika Ernst DO | PCP | | + +------+ + Reason for Visit + + + | Reason | Comments | + + + | Medication Refill | | + + + | Medication Question | Please have Dr. Ernst call patient Ailyn re: medication | | | question | + + + | Medication Refill | | + + + | Medication Question | please call and advise | + + + Encounter Details +--------+--------+ + + + | Date | Type | Department | Care Team | Description | +--------+--------+ + + + | 08/10/ | Refill | [place] [facility] | Erika Ernst, | Medication Refill; | | 2019 | | [facility] | DO [address] | Medication Question | | | | MEDICAL CLINIC [address] | [place] [address] | (Please have DrCarmen | | | | [address] [place], | [phone] | Klever call patient | | | | [place] [address] | | Monday re: | | | | [phone] | | medication | | | | | | question); | | | | | | Medication Refill; | | | | | | Medication Question | | | | | | (please call and | | | | | | advise) | +--------+--------+ + + + Social History [...] | | | | | [place] [address] | | | | | | [phone] | | | | | | | | +--------+ + + + + | 10/30/ | Office | Primary Care | Erika Ernst, | | | 2019 | Visit | | DO [address] | | | | | | [place] [address] | | | | | | [phone] | | | | | | | [...] [place] | | | | | | [address] | | | | | | [phone] | | | | | | | | +--------+ + + + + | 02/09/ | Office | Neurology | Dhara, | | | 2020 | Visit | | [address] | | | | | | [address] [place], | | | | | | [place] [address] | | | | | | [phone] | | | | | | | | +--------+ + + + + documented as of this encounter Visit Diagnoses Not on filedocumented in this encounter"
--- OUTSIDE RECORDS SUMMARY | ~2019-09-30 | XMS | Encounter Summary ---
Demographics + + + | Address | [address] | | | [place] [address] | + + + | Home Phone [...] Team Providers + +------+ + | Care Hotel Lobby Concierge Name | Role | Phone | + [...] | | | [address] | [facility] [place] | | | | | [place], [place] | [address] | | | | | [address] | [phone] | | | | | [phone] | | | +--------+ + + + [...] | | | | | [place] [address] | | | | | | [phone] | | | | | | | | +--------+ + + + + | 10/30/ | Office | Primary Care | Erika Ernst, | | | 2019 | Visit | | DO [address] | | | | | | [place] [address] | | | | | | [phone] | | | | | | | [...] [place] | | | | | | [address] | | | | | | [phone] | | | | | | | | +--------+ + + + + | 02/09/ | Office | Neurology | Dhara, | | | 2020 | Visit | | [address] | | | | | | [address] [place], | | | | | | [place] [address] | | | | | | [phone] | | | | | | | | +--------+ + + + + documented as of this encounter Visit Diagnoses Not on filedocumented in this encounter"
--- OUTSIDE RECORDS SUMMARY | ~2019-09-30 | XMS | Encounter Summary ---
Demographics + + + | Address | [address] | | | [place] [address] | + + + | Home Phone [...] Team Providers + +------+ + | Care Credit Department Manager Name | Role | Phone | [...] Medication Refill | | 2017 | | [facility] | DO [address] | | | | | MEDICAL CLINIC [address] | [place] [address] | | | | | [address] [place], | [phone] | | | | | [place] [address] | | | | | | [phone] | | | +--------+--------+ + + + [...] | | | | | [place] [address] | | | | | | [phone] | | | | | | | | +--------+ + + + + | 10/30/ | Office | Primary Care | Erika Ernst, | | | 2019 | Visit | | DO [address] | | | | | | [place] [address] | | | | | | [phone] | | | | | | | [...] [place] | | | | | | [address] | | | | | | [phone] | | | | | | | | +--------+ + + + + | 02/09/ | Office | Neurology | Dhara, | | | 2019 | Visit | | [address] | | | | | | [address] [place], | | | | | | [place] [address] | | | | | | [phone] | | | | | | | | +--------+ + + + + documented as of this encounter Visit Diagnoses Not on filedocumented in this encounter"
--- OUTSIDE RECORDS SUMMARY | ~2019-09-30 | XMS | Encounter Summary ---
Demographics + + + | Address | [address] | | | [place] [address] | + + + | Home Phone [...] Team Providers + +------+ + | Care Sales Solutions Representative Name | Role | Phone | [...] [address] | [place] [address] | | | | | [place], [place] | [phone] | | | | | [address] | | | | | | [phone] | | | +--------+ + + + [...] | 04/12/20 | | | (VITAMIN D3) 62357 | mouth Once a week | tablet [...] Visit | | DO [address] | | | | | | [place] [address] | | | | | | [phone] | | | | | | | | +--------+ + + + + | 10/30/ | Office | Primary Care | Erika Ernst, | | | 2019 | Visit | | DO [address] | | | | | | [place] [address] | | | | | | [phone] | | | | | | | [...] [place] | | | | | | [address] | | | | | | [phone] | | | | | | | | +--------+ + + + + | 02/09/ | Office | Neurology | Dhara, | | | 2019 | Visit | | [address] | | | | | | 4TH [facility], | | | | | | [place] [address] | | | | | | [phone] | | | | | | | [...] follow-up thyroid ultrasound recommended. Dictated by: Chris Bedolla | | | AM | | [...]
--- OUTSIDE RECORDS SUMMARY | ~2019-09-30 | XMS | Encounter Summary ---
Demographics + + + | Address | [address] | | | [place] [address] | + + + | Home Phone [...] | Author | [facility] | | | and [place] | + + + | Organization | [facility] | | | and [...] Team Providers + +------+ + | Care Spike Machine Feeder Name | Role | Phone | + [...] | MEDICAL CLINIC [address] | [place] [address] | | | | | [address] [place], | [phone] | | | | | [place] [address] | | | | | | [phone] | | | +--------+ + + + [...] | | | | | [place] [address] | | | | | | [phone] | | | | | | | | +--------+ + + + + | 10/30/ | Office | Primary Care | Erika Ernst, | | | 2019 | Visit | | DO [address] [place] [address] | | | | | | [place] [address] | | | | | | [phone] | | | | | | | [...] [place] | | | | | | [address] | | | | | | [phone] | | | | | | | | +--------+ + + + + | 02/09/ | Office | Neurology | Dhara, | | | 2019 | Visit | | [address] | | | | | | [address] [place], | | | | | | [place] [address] | | | | | | [phone] | | | | | | | | +--------+ + + + + documented as of this encounter Visit Diagnoses Not on filedocumented in this encounter"
--- OUTSIDE RECORDS SUMMARY | ~2019-09-30 | XMS | Encounter Summary ---
Demographics + + + | Address | [address] | | | [place] [address] | + + + | Home Phone [...] Team Providers + +------+ + | Care Multiple Wire Sawyer Name | Role | Phone | + [...] Results, Imaging | | 2018 | | [facility] | PRODUCTION ASSEMBLY SUPERVISOR | | | | | MEDICAL CLINIC [address] | | | | | | [address]TH [facility] [place], | | | | | | [place] [address] | | | | | | [phone] | | | +--------+ + + + [...] 2019 | Visit | | [address] | | | | | | [place] [address] | | | | | | [phone] | | | | | | | | +--------+ + + + + | 10/30/ | Office | Primary Care | Erika Ernst, | | | 2019 | Visit | | DO [address] | | | | | | [place] [address] | | | | | | [phone] | | | | | | | [...] [place] | | | | | | [address] | | | | | | [phone] | | | | | | | | +--------+ + + + + | 02/09/ | Office | Neurology | Dhara, | | | 2019 | Visit | | [address] | | | | | | [address] [place], | | | | | | [place] [address] | | | | | | [phone] | | | | | | | | +--------+ + + + + documented as of this encounter Visit Diagnoses Not on filedocumented in this encounter"
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
--- OUTSIDE RECORDS SUMMARY | ~2019-09-30 | XMS | Encounter Summary ---
Demographics + + + | Address | [address] | | | [place] [address] | + + + | Home Phone [...] Team Providers + +------+ + | Care Collar Tacker Name | Role | Phone | + +------+ + PCP | Unavailable | + +------+ + Encounter Details +--------+ + + + + | Date | Type | Department | Care Team | Description | +--------+ + + + + | 11/12/ | [facility] | Caro Zendejas | | | 2013 | Encounter | [facility] | [place], BATTERY CHECKER [address] | | | | | MEDICAL CLINIC [address] | [facility], [place] | | | | | 4TH [facility], | [address] | | | | | [place] [address] | [phone] | | | | | [phone] | | | +--------+ + + + [...] | | | | | [place] [address] | | | | | | [phone] | | | | | | | | +--------+ + + + + | 10/30/ | Office | Primary Care | Erika Ernst, | | | 2019 | Visit | | DO [address] | | | | | | [place] [address] | | | | | | [phone] | | | | | | | [...] [place] | | | | | | [address] | | | | | | [phone] | | | | | | | | +--------+ + + + + | 02/09/ | Office | Neurology | Dhara, | | | 2020 | Visit | | [address] | | | | | | [address] [place], | | | | | | [place] [address] | | | | | | [phone] | | | | | | | | +--------+ + + + + documented as of this encounter Visit Diagnoses Not on filedocumented in this encounter"
--- OUTSIDE RECORDS SUMMARY | ~2019-09-30 | XMS | Encounter Summary ---
Demographics + + + | Address | [address] | | | [place] [address] | + + + | Home Phone [...] Team Providers + +------+ + | Care Coloring Room Worker Name | Role | Phone | [...] | | | | | sinusitis, | [address] | | | | | | unspecified | Phone: | | | | | | chronicity | [phone] | | | | | | Procedures | Fax: | | | | | | CT Sinus WO | [phone] | | | | | | Contrast [...] | | | | | sinusitis, | [address] | | | | | | unspecified | Phone: | | | | | | chronicity | [phone] | | | | | | Procedures | Fax: | | | | | | CT Sinus WO | [phone] | | | | | | Contrast [...] | | [place], [place] | [place] [address] | sinusitis, | | | | [address] | [phone] | unspecified | | | | [phone] | | chronicity | +--------+ + + [...] | 11/26/19 | | | (VITAMIN D3) 72022 | mouth Once a week | tablet | | 19 | 9 | | units TABS | for 16 doses. | | | | | + + + +---------+ + + | D3-50 87294 units | | | 0 | 12/13/19 [...] | | | | | [place] [address] | | | | | | [phone] | | | | | | | | +--------+ + + + + | 10/30/ | Office | Primary Care | Erika Ernst, | | | 2019 | Visit | | DO [address] | | | | | | [place] [address] | | | | | | [phone] | | | | | | | [...] [place] | | | | | | [address] | | | | | | [phone] | | | | | | | | +--------+ + + + + | 02/09/ | Office | Neurology | Dhara, | | | 2019 | Visit | | [address] | | | | | | [address] [place], | | | | | | [place] [address] | | | | | | [phone] | | | | | | | [...] + + | Mitchel, Rad Results In 12/13/2018 10:35 AM PDT EXAMINATION:CT SINUS WO [...] | thickening.Dictated by: Braydon PryoramElectronically Signed by: Braydon Stockton on | | 12/13/2018 10:32 AM [...]
--- OUTSIDE RECORDS SUMMARY | ~2019-09-30 | XMS | Encounter Summary ---
Demographics + + + | Address | [address] | | | [place] [address] | + + + | Home Phone [...] Team Providers + +------+ + | Care Silk Washing Machine Operator Name | Role | Phone | + +------+ + | Erika Ernst DO | PCP | | + +------+ + Reason for Visit + + + | Reason | Comments | + + + | Lab Order | | + + + Encounter Details +--------+ + + + + | Date | Type | Department | Care Team | Description | +--------+ + + + + | 08/19/ | Telephone | [place] [facility] | Erika Ernst, | Lab Order | | 2019 | | [facility] | DO [address] | | | | | MEDICAL CLINIC [address] | [place] [address] | | | | | [address] [place], | [phone] | | | | | [place] [address] | | | | | | [phone] | | | +--------+ + + + [...] | | | | | [place] [address] | | | | | | [phone] | | | | | | | | +--------+ + + + + | 10/30/ | Office | Primary Care | Erika Ernst, | | | 2019 | Visit | | DO [address] [facility] | | | | | | [place] [address] | | | | | | [phone] | | | | | | | [...] [place] | | | | | | [address] | | | | | | [phone] | | | | | | | | +--------+ + + + + | 02/09/ | Office | Neurology | Dhara, | | | 2019 | Visit | | [address] | | | | | | [address] [place], | | | | | | [place] [address] | | | | | | [phone] | | | | | | | | +--------+ + + + + documented as of this encounter Visit Diagnoses Not on filedocumented in this encounter"
--- OUTSIDE RECORDS SUMMARY | ~2019-09-30 | XMS | Encounter Summary ---
Demographics + + + | Address | [address] | | | [place] [address] | + + + | Home Phone [...] Providers + +------+ + | Care Community Health Promoter Name | Role | Phone | + +------+ + | Erika Ernst DO | PCP | | + +------+ + Encounter Details +--------+ + + + + | Date | Type | Department | Care Team | Description | +--------+ + + + + | 05/20/ | Orders Only | [place] [facility] | Erika Ernst, | Iron deficiency | | 2019 | | [facility] | DO [address] | | | | | MEDICAL CLINIC [address] | [place] [address] | | | | | [address] [place], | [phone] | | | | | [place] [address] | | | | | | [phone] | | | +--------+ + + + [...] 2019 | Visit | | DO [address] | | | | | | [place] [address] | | | | | | [phone] | | | | | | | | +--------+ + + + + | 01/29/ | Office | Primary Care | Erika Ernst, | | | 2019 | Visit | | DO [address] [place] | | | | | | [place] [address] | | | | | | [phone] | | | | | | | [...] [place] | | | | | | [address] | | | | | | [phone] | | | | | | | | +--------+ + + + + | 02/09/ | Office | Neurology | Dhara, | | | 2019 | Visit | | [address] | | | | | | [address] [place], | | | | | | [place] [address] | | | | | | [phone] | | | | | | | | +--------+ + + + + documented as of this encounter Visit Diagnoses + + | Diagnosis | + + | Iron deficiency Other disorders of iron metabolism | + + documented in this encounter"
--- OUTSIDE RECORDS SUMMARY | ~2019-09-30 | XMS | Encounter Summary ---
Demographics + + + | Address | [address] | | | [place] [address] | + + + | Home Phone [...] Team Providers + +------+ + | Care Games Manager Name | Role | Phone | [...] | Results | | 2018 | | [facility] | [address] [address] | | | | | W[facility]IN CL[facility] [address] | [address] | | | | | [address] [place], | [place] [address] | | | | | [place] [address] | [phone] | | | | | [phone] | | | +--------+ + + + [...] | | | | | [place] [address] | | | | | | [phone] | | | | | | | | +--------+ + + + + | 10/30/ | Office | Primary Care | Erika Ernst, | | | 2019 | Visit | | DO [address] | | | | | | [place] [address] | | | | | | [phone] | | | | | | | [...] [place] | | | | | | [address] | | | | | | [phone] | | | | | | | | +--------+ + + + + | 02/09/ | Office | Neurology | Dhara, | | | 2019 | Visit | | [address] | | | | | | [address] [place], | | | | | | [place] [address] | | | | | | [phone] | | | | | | | | +--------+ + + + + documented as of this encounter Visit Diagnoses Not on filedocumented in this encounter"
--- OUTSIDE RECORDS SUMMARY | ~2019-09-30 | XMS | Encounter Summary ---
Demographics + + + | Address | [address] | | | [place] [address] | + + + | Home Phone [...] Team Providers + +------+ + | Care Denier Control Operator Name | Role | Phone | + +------+ + | Erika Ernst DO | PCP | | + +------+ + Encounter Details +--------+ + + + + | Date | Type | Department | Care Team | Description | +--------+ + + + + | 12/06/ | [facility] | [place] [facility] | Daxa, Emily E, DPM | Sprain of deltoid | | 2019 | Encounter | HOSPITAL | [address] [place] | ligament of left | | | | ORTHOPAEDICS XRAY | [place] | ankle, sequela | | | | [address] [place] | [address] | | | | | [place], [place] | | | | | | [address] | | | | | | [phone] | | | +--------+ + + + [...] tablet by | 20 | 0 | 12/04/19 | | | amoxicillin-clavulan | mouth 2 times daily | tablet | | 19 | 9 | | ate (AUGMENTIN) | for 10 days. | | | | | | 875-125 mg per | | | | | | | tabletIndications: | | | | | | | Acute recurrent | | | | | | | pansinusitis | | | | | | + [...] | 11/26/19 | | | (VITAMIN D3) 69279 | mouth Once a week | tablet [...] | | | | | [place] [address] | | | | | | [phone] | | | | | | | | +--------+ + + + + | 10/30/ | Office | Primary Care | Erika Ernst, | | | 2019 | Visit | | DO [address] | | | | | | [place] [address] | | | | | | [phone] | | | | | | | [...] [place] | | | | | | [address] | | | | | | [phone] | | | | | | | | +--------+ + + + + | 02/09/ | Office | Neurology | Dhara, | | | 2019 | Visit | | DWA[address] Ross [address] | | | | [address] [place], | | | | | | [place] [address] | | | | | | [phone] | | | | | | | | +--------+ + + + + documented as of this encounter Procedures + +--------+ + + + | Procedure Name | Priori | Date/Time | Associated Diagnosis | Comments | | | ty | | | | + +--------+ + + + | XR FOOT LEFT 3 + VW | Routin | 12/06/2018 | Sprain of deltoid | Results for this | | | e | 2:43 PM | ligament of left | procedure are in the | | | | PST | ankle, sequela | results section. | + +--------+ + + + | XR ANKLE LEFT 3 + VW | Routin | 12/06/2018 | Sprain of deltoid | Results for this | | | e | 2:43 PM | ligament of left | procedure are in the | | | | PST | ankle, sequela | results section. | + +--------+ + [...] [facility] | | Dictated by: Chris Beodlla | | + + + + + + | Narrative | Performed At | + + + | EXAMINATION: XR FOOT LEFT 3 + VW HISTORY: pes planus | [facility] | | COMPARISON STUDY: None FINDINGS: Dundee angle 46 degrees. | | | Talocalcaneal [...] LEFT 3 + | | VWHISTORY:pes planusCOMPARISON STUDY:NoneFINDINGS:Dundee angle 46 degrees.Talocalcaneal | | angle 25 [...] | |None | | | |FINDINGS: | |Dundee angle 46 degrees. | | | |Talocalcaneal [...] | + +---------+ + + XR Ankle Left 3 + Vw (12/06/2018 2:43 PM [...] of deltoid ligament of left ankle, sequela | + + documented in this encounter"
--- OUTSIDE RECORDS SUMMARY | ~2019-09-30 | XMS | Encounter Summary ---
Demographics + + + | Address | [address] | | | [place] [address] | + + + | Home Phone | | + + + | Preferred Language | Unknown | + + + | Marital Status | Single | + + + | Protestant Affiliation | Unknown | + + + | Race | Unknown | + + + | Ethnic Group | Unknown | + + + Author + + + | Author | [facility] | | | and [place] | + + + | Organization | [facility] | | [...] Providers + +------+ + | Care Testing Consultant Name | Role | Phone | [...] | +--------+ + + + + | 05/27/ | Telephone | [place] [facility] | Emily Avery | Follow-up | | 2019 | | [facility] | DO Jackelyn Garcia | | | | | [address] [place] | [address] [place] [place] | | | | | [place], [place] | [place], [place] | | | | | [address] | [address] | | | | | [phone] | [phone] | | | | | | | [...] Visit | | DO [address] | | | | | | [place] [address] | | | | | | [phone] | | | | | | | | +--------+ + + + + | 10/30/ | Office | Primary Care | Erika Ernst, | | | 2019 | Visit | | DO [address] [place] [address] | | | | | | [place] [address] | | | | | | [phone] | | | | | | | [...] DR | | | | | | [place] | | | | | | [address] | | | | | | [phone] | | | | | | | | +--------+ + + + + | 02/09/ | Office | Neurology | Dhara, | | | 2019 | Visit | | [address] | | | | | | [address] [place], | | | | | | [place] [address] | | | | | | [phone] | | | | | | | | +--------+ + + + + documented as of this encounter Visit Diagnoses Not on filedocumented in this encounter"
--- OUTSIDE RECORDS SUMMARY | ~2019-09-30 | XMS | Encounter Summary ---
Demographics + + + | Address | [address] | | | [place] [address] | + + + | Home Phone [...] Providers + +------+ + | Care Heel Packer Name | Role | Phone | [...] | | | [place] T[place] | [place] [address] | [place] [address] | | | | | | Phone: | Phone: | | | | | | [phone] | [phone] | | | | | | Fax: | Fax: | | | | | | [phone] | [phone] | +--------+--------+ + + + + Encounter [...] [address] [place] | [place] [address] | | | | | [place], [place] | [phone] | | | | | [address] | | | | | | [phone] | Julia Peña, | | | | | | DRY KILN OPERATOR | | +--------+ + + + + [...] | 11/26/19 | | | (VITAMIN D3) 01564 | mouth Once a week | tablet [...] of this encounter Progress Notes Julia Peña, DRY KILN OPERATOR - 01/15/2019 10:36 AM PDTFormatting of this note might be differen t from the original. [facility] [address] [place] [address] Physical Therapy Daily Treatment Note Date: 01/15/2019 [...] blue thera band; SLS. Ongoing: Wall sits [id number] holds, Bridging 3 x 10 reps, Side [...] | | | | | [place] [address] | | | | | | [phone] | | | | | | | | +--------+ + + + + | 10/30/ | Office | Primary Care | Erika Ernst, | | | 2019 | Visit | | DO [address] [place] | | | | | | [place] [address] | | | | | | [phone] | | | | | | | [...] [place] | | | | | | [address] | | | | | | [phone] | | | | | | | | +--------+ + + + + | 02/09/ | Office | Neurology | Dhara, | | | 2019 | Visit | | [address]WA[address] Ross [address] [place], | | | | | | [place] [address] | | | | | | [phone] | | | | | | | | +--------+ + + + + documented as of this encounter Visit Diagnoses + + | Diagnosis | + + | Acute pain of right knee - Primary | + + documented in this encounter"
--- OUTSIDE RECORDS SUMMARY | ~2019-09-30 | XMS | Encounter Summary ---
Demographics + + + | Address | [address] | | | [place] [address] | + + + | Home Phone [...] Team Providers + +------+ + | Care Maintenance Inspector Name | Role | Phone | [...] Specialty | Orthopedic | Diagnoses | [facility] | | | Services | Surgery | Injury of | Alem L, | Orthopedic | | | Required | | right index | MANAGER OF SALES-SUPPLY CHAIN BUSINESS ANALYST | [address] | | | | | finger, | [address] | [place] | | | | | initial | St [place] | [place], [place] | | | | | encounter | [place], [place] | [address] | | | | | Procedures | [address] | Phone: | | | | | [place] | Phone: | [phone] | | | | | | [phone] | Fax: | | | | | | Fax: | [phone] | | | | | | [phone] | | +--------+ + + + + + Reason for Visit + + + | Reason | Comments | + + + | Hand Pain | sprained x2 months ago | + + + Encounter Details +--------+---------+ + + + | Date | Type | Department | Care Team | Description | +--------+---------+ + + + | 05/06/ | Office | [place] [facility] | Alem Guerrero, | Injury of right | | 2019 | Visit | [facility] | MANAGER OF SALES-SUPPLY CHAIN BUSINESS ANALYST [address] | index finger, | | | | [facility] [address] | initial encounter | | | [address] [place], | [place] [address] | (Primary Dx) | | | | [place] [address] | [phone] | | | | | [phone] | | | +--------+---------+ + + + [...] + + + | Blood Pressure | 150/90 | 05/06/2019 5:49 PM | | | | | PDT | | + + + + + | Pulse | 83 | 05/06/2019 5:49 PM | | | | | PDT | | + + + + + | Temperature | 36.5 C (97.7 F) | 05/06/2019 5:49 PM | | | | | PDT | | + + + + + | Respiratory Rate | 18 | 05/06/2019 5:49 PM | | | | | PDT | | + + + + + | Oxygen Saturation | 99% | 05/06/2019 5:49 PM | | | | | PDT | | + + + + + | Inhaled Oxygen | - | - | | | Concentration | | | | + + + + + | Weight | 166.5 kg (367 lb) | 05/06/2019 5:49 PM | | | | | PDT | | + + + + + | Height | 177.8 cm (5' 10") | 05/06/2019 5:49 PM | | | | | PDT | | + + + + + | Body Mass Index | 52.66 | 05/06/2019 5:49 PM | | | | | PDT | | + + + + + documented in this encounter Patient Instructions Patient Instructions Alem Guerrero APRN-FNP - 05/06/2019 5:00 PM PDTHave your finger xray today; we will call you the results tomorrow Wear the finger splint as needed Ibuprofen or tylenol as needed for pain A referral has been placed to orthopedics. Someone will call you in 4-5 days with an appoin tment. documented in this encounter Progress Notes YolandaStuAlem L, MANAGER OF SALES-SUPPLY CHAIN BUSINESS ANALYST - 05/06/2019 5:00 PM PDTFormatting of this note might be diffe rent from the original. Subjective: Patient ID: Andrea Suh is a 29 y.o. female. Chief Complaint Patient presents with Hand Pain sprained x2 months ago HPI Here today with complaints of persistent right index finger pain and swelling onset two mon ths ago. Says she had a water bottle hanging from her finger and her nephew ran by and hit t he bottle and it swung. She had swelling for 5-7 days. She has had persistent pain that hasn 't improved since approximately a week after the injury. The pain is described as a constant ache that increases with movement or pressure. The pain is located at the PIP joint. She wo uld like a referral to orthopedics She had ECU repair by Dr. Lott six weeks ago; this was a Workman's Comp issue. The cast was removed last week and she was placed in a wrist splint. She was as her OT appointment today and they suggested she get it checked out since the finger had not improved Smoking history: Allergies Allergen Reactions Latex Rash Lexapro [Escitalopram] Palpitations Oxycodone Anaphylaxis and Shortness Of Breath Deblitane [Norethindrone] Hydrocodone Hives Uncoded Nonscreenable Allergen Other (See Comments) Other reaction(s): Proclivity to C-diff with certain antibiotics Adhesive & Tape Rash Patient Active Problem List Diagnosis Date Noted POA Moderate persistent asthma with acute exacerbation 04/12/2019 Unknown S/P right ECU tenosynovectomy on 03/20/19 03/26/2019 Unknown Post-traumatic brain syndrome 02/12/2019 Unknown Deviated nasal septum 11/20/2018 Unknown Non-seasonal allergic rhinitis due to pollen 11/16/2018 Unknown Chronic pain of both ears 10/09/2018 Unknown Insomnia due to other mental disorder 10/09/2018 Unknown Painful menstrual periods 07/12/2018 Unknown Anxiety 05/29/2018 Unknown Environmental allergies 04/02/2018 [...] mouth. Once a week Cholecalciferol (VITAMIN D3) 69149 units TABS Take 1 tablet by mouth [...] of the O ropharynx 180 mL 1 pseudoephedrine-guaiFENesin (MUCINEX D) 60-600 mg per 12 hr tablet Take 1 tablet by codi th 2 times daily. 14 tablet 0 traZODone (DESYREL) 100 mg tablet Take 1 tablet by mouth nightly as needed for Insomnia . 30 tablet 2 No current facility-administered medications on file prior to visit. Objective: BP 150/90 | Pulse 83 | Temp 36.5 C (97.7 F) (Temporal) | Resp 18 | Ht 1.778 m (5' 1 0") | Wt (!) 166.5 kg (367 lb) | SpO2 99% | BMI 52.66 kg/m Physical Exam Constitutional: She is oriented to person, place, and time. She appears well-developed and well-nourished. Pulmonary/Chest: Effort normal. No respiratory distress. Musculoskeletal: Right hand: She exhibits tenderness and bony tenderness (PIP joint index finger). She exhibits normal range of motion, normal capillary refill, no deformity and no swelling. Norm al sensation noted. Normal strength noted. Hands: Neurological: She is alert and oriented to person, place, and time. Skin: Skin is warm and dry. No rash noted. No erythema. No pallor. No results found for this or any previous visit (from the past 24 hour(s)). [facility] XR FINGER RIGHT 2 + VW Assessment: 1. Injury of right index finger, initial encounter - * [place] [facility] - AMB Referral - XR Finger Right 2 + Vw; Future Plan: Persistent right index finger PIP joint pain post injury two months ago. Will get an xray, place in a finger splint and refer to orthopedics as requested Return for referral to orthopedics. Electronically signed by: CHASE Edward05/06/201918:28 [facility] Note: Part of this report was transcribed using voice recognition software. Every effort wa s made to ensure accuracy. However, inadvertent computerized production supervisor off shift errors may be pre sent. documente d [...] | | | | | [place] [address] | | | | | | [phone] | | | | | | | | +--------+ + + + + | 10/30/ | Office | Primary Care | Erika Ernst, | | | 2019 | Visit | | DO [address] [place] | | | | | | [place] [address] | | | | | | [phone] | | | | | | | [...] [place] | | | | | | [address] | | | | | | [phone] | | | | | | | | +--------+ + + + + | 02/09/ | Office | Neurology | Dhara, | | | 2019 | Visit | | [address]WA[address] | | [address] [place], | | | | | | [place] [address] | | | | | | [phone] | | | | | | | | +--------+ + + + + + + +--------+ + + | Name | Type | Priori | Associated Diagnoses | Order Schedule | | | | ty | | | + + +--------+ + + | * [place] [facility] | Outpatient | Routin | Injury of right | Ordered: 05/06/2019 | | [facility] - AMB | Referral | e | index finger, | | | Referral | | | initial encounter | | + + +--------+ + + documented as of this encounter Results XR Finger Right 2 + Vw (05/06/2019 6:47 PM PDT) + + | Specimen | + + | | + + + + | Addenda | + + | Addendum by Chris Bedolla MD on 05/23/2019 8:01 AM ADDENDUM: The 2nd | | sentence of the impression should read: No distinct joint degenerative changes. | | Dictated by: Chris Bedolla | | 7:57 AM | + + + + + | Impressions | Performed At | + + + | IMPRESSION: No acute finding . New distinct joint degenerative | [facility] | | changes. Dictated by: Chris Bedolla | | + + + + + + | Narrative | Performed At | + + + | EXAMINATION: XR FINGER RIGHT 2 + VW HISTORY: right index | [facility] | | finger PIP joint pain post injury two months ago COMPARISON STUDY: | | | None FINDINGS: Images in multiple views showed no significant | | | soft tissue or bony abnormality. If concern for acute fracture | | | remains clinically follow-up images in 10 to 14 days recommended. The | | | joint spaces are maintained.. | | + + + + + | Procedure Note | + + | Mitchel, Rad Results In - 05/07/2019 7:22 AM PDT EXAMINATION:XR FINGER RIGHT 2 + | | VWHISTORY:right index finger PIP joint pain post injury two months agoCOMPARISON | | STUDY:NoneFINDINGS:Images in multiple views showed no significant soft tissue or bony | | abnormality.If concern for acute fracture remains clinically follow-up images in 10 to | | 14 days recommended. The joint spaces are maintained..IMPRESSION: IMPRESSION:No acute | | finding . New distinct joint degenerative changes.Dictated by: Chris | | Graeme | |None | | | |FINDINGS: | |Images in multiple views showed no significant soft tissue or bony abnormality. | |If concern for acute fracture remains clinically follow-up images in 10 to 14 days recommen ded. The joint spaces are maintained.. | | | |IMPRESSION: | |IMPRESSION: | |No acute finding . New distinct joint degenerative changes. | | | |Dictated by: Chris Bedolla [...] | + + | Injury of right index finger, initial encounter - Primary | + + documented in this encounter
--- OUTSIDE RECORDS SUMMARY | ~2019-09-30 | XMS | Encounter Summary ---
Demographics + + + | Address | [address] | | | [place] [address] | + + + | Home Phone [...] + +------+ + | Care Director Of Recruitment Name | Role | Phone | + [...] | +--------+ + + + + | 04/22/ | Telephone | [place] [facility] | Mindy Miller, | Follow-up | | 2019 | | [facility] | [facility] | | | | | CENTER [address] | | | | | | [place] | | | | | | [address] | | | | | | [phone] | | | +--------+ + + + [...] Visit | | DO [address] | | | | | | [place] [address] | | | | | | [phone] | | | | | | | | +--------+ + + + + | 10/30/ | Office | Primary Care | Erika Ernst, | | | 2019 | Visit | | DO [address] | | | | | | [place] [address] | | | | | | [phone] | | | | | | | [...] [place] | | | | | | [address] | | | | | | [phone] | | | | | | | | +--------+ + + + + | 02/09/ | Office | Neurology | Dhara, | | | 2019 | Visit | | [address]WAINE Ross [address] [place], | | | | | | [place] [address] | | | | | | [phone] | | | | | | | | +--------+ + + + + documented as of this encounter Visit Diagnoses Not on filedocumented in this encounter"
--- OUTSIDE RECORDS SUMMARY | ~2019-09-30 | XMS | Encounter Summary ---
Demographics + + + | Address | [address] | | | [place] [address] | + + + | Home Phone [...] Team Providers + +------+ + | Care Joinery Factory Worker Name | Role | Phone | [...] | | [place] | [place] [address] | | | | | [address] | [phone] | | | | | [phone] | | | +--------+ + + + [...] | | | | | [place] [address] | | | | | | [phone] | | | | | | | | +--------+ + + + + | 10/30/ | Office | Primary Care | Erika Ernst, | | | 2019 | Visit | | DO [address] [place] | | | | | | [place] [address] | | | | | | [phone] | | | | | | | [...] [place] | | | | | | [address] | | | | | | [phone] | | | | | | | | +--------+ + + + + | 02/09/ | Office | Neurology | Dhara, | | | 2019 | Visit | | [address] [place], | | | | | | [place] [address] | | | | | | [phone] | | | | | | | | +--------+ + + + + documented as of this encounter Visit Diagnoses Not on filedocumented in this encounter"
--- OUTSIDE RECORDS SUMMARY | ~2019-09-30 | XMS | Encounter Summary ---
Demographics + + + | Address | [address] | | | [place] [address] | + + + | Home Phone [...] Team Providers + +------+ + | Care Coordinator Cardiopulmonary Services Name | Role | Phone | + +------+ + PCP | Unavailable | + +------+ + Encounter Details +--------+ + + + + | Date | Type | Department | Care Team | Description | +--------+ + + + + | 10/26/ | [facility] | Spenser Roberts NP | | | 2015 | Encounter | [facility] | [address], | | | | | MEDICAL CL[facility] [address] | [place] [address] | | | | | [address] [facility], | [phone] | | | | | [place] [address] | | | | | | [phone] | | | +--------+ + + + [...] | | | | | [place] [address] | | | | | | [phone] | | | | | | | | +--------+ + + + + | 10/30/ | Office | Primary Care | Erika Ernst, | | | 2019 | Visit | | DO [address] [place] | | | | | | [place] [address] | | | | | | [phone] | | | | | | | [...] [place] | | | | | | [address] | | | | | | [phone] | | | | | | | | +--------+ + + + + | 02/09/ | Office | Neurology | Dhara, | | | 2020 | Visit | | [address] [place], | | | | | | [place] [address] | | | | | | [phone] | | | | | | | | +--------+ + + + + documented as of this encounter Visit Diagnoses Not on filedocumented in this encounter"
--- OUTSIDE RECORDS SUMMARY | ~2019-09-30 | XMS | Encounter Summary ---
Demographics + + + | Address | [address] | | | [place] [address] | + + + | Home Phone [...] Team Providers + +------+ + | Care On Site Services Specialist Name | Role | Phone | [...] Refill | | 2019 | | [facility] | DO [address] | | | | | MEDICAL CLINIC [address] | [place] [address] | | | | [address] [place], | [phone] | | | | | [place] [address] | | | | | | [phone] | | | +--------+--------+ + + + [...] | | | | | [place] [address] | | | | | | [phone] | | | | | | | | +--------+ + + + + | 10/30/ | Office | Primary Care | Erika Ernst, | | | 2019 | Visit | | DO [address] | | | | | | [place] [address] | | | | | | [phone] | | | | | | | [...] [place] | | | | | | [address] | | | | | | [phone] | | | | | | | | +--------+ + + + + | 02/09/ | Office | Neurology | Dhara, | | | 2020 | Visit | | [address]WA[address] Ross [address] [place], | | | | | | [place] [address] | | | | | | [phone] | | | | | | | | +--------+ + + + + documented as of this encounter Visit Diagnoses Not on filedocumented in this encounter"
--- OUTSIDE RECORDS SUMMARY | ~2019-09-30 | XMS | Encounter Summary ---
Demographics + + + | Address | [address] | | | [place] [address] | + + + | Home Phone [...] Providers + +------+ + | Care Marketing Finance Manager Name | Role | Phone | [...] | [place], [place] | [place] [address] | | | | | [address] | [phone] | | | | | [phone] | | | +--------+---------+ + + + [...] | | | | | [place] [address] | | | | | | [phone] | | | | | | | | +--------+ + + + + | 01/29/ | Office | Primary Care | Erika Ernst, | | | 2019 | Visit | | DO [address] [place] | | | | | | [place] [address] | | | | | | [phone] | | | | | | | [...] [place] | | | | | | [address] | | | | | | [phone] | | | | | | | | +--------+ + + + + | 02/09/ | Office | Neurology | Dhara, | | | 2019 | Visit | | [address]WA[address] | [address] [place], | | | | | | [place] [address] | | | | | | [phone] | | | | | | | | +--------+ + + + + documented as of this encounter Visit Diagnoses Not on filedocumented in this encounter"
--- OUTSIDE RECORDS SUMMARY | ~2019-09-30 | XMS | Encounter Summary ---
Demographics + + + | Address | [address] | | | [place] [address] | + + + | Home Phone [...] Team Providers + +------+ + | Care Satellite Installer Name | Role | Phone | [...] | [place], [place] | [place] [address] | | | | | [address] | [phone] | | | | | [phone] | | | +--------+ + + + [...] | | | | | [place] [address] | | | | | | [phone] | | | | | | | | +--------+ + + + + | 10/30/ | Office | Primary Care | Erika Ernst, | | | 2019 | Visit | | DO [address] | | | | | | [place] [address] | | | | | | [phone] | | | | | | | [...] [place] | | | | | | [address] | | | | | | [phone] | | | | | | | | +--------+ + + + + | 02/09/ | Office | Neurology | Dhara, | | | 2020 | Visit | | [address]WA[address] Ross [address] [place], | | | | | | [place] [address] | | | | | | [phone] | | | | | | | | +--------+ + + + + documented as of this encounter Visit Diagnoses Not on filedocumented in this encounter"
--- OUTSIDE RECORDS SUMMARY | ~2019-09-30 | XMS | Encounter Summary ---
Demographics + + + | Address | [address] | | | [place] [address] | + + + | Home Phone | | + + + | Preferred Language | Unknown | + + + | Marital Status | Single | + + + | Samaritan Affiliation | Unknown | + + + | Race | Unknown | + + + | Ethnic Group | Unknown | + + + Author + + + | Author | [facility] | | | and [place] | + + + | Organization | [facility] | | | [...] Team Providers + +------+ + | Care Kieselguhr Regenerator Operator Name | Role | Phone | [...] [address] [place] | [place] [address] | | | | | [place], [place] | [phone] | | | | | [address] | | | | | | [phone] | | | +--------+ + + + [...] | | | | | [place] [address] | | | | | | [phone] | | | | | | | | +--------+ + + + + | 10/30/ | Office | Primary Care | Erika Ernst, | | | 2019 | Visit | | DO [address] [place] | | | | | | [place] [address] | | | | | | [phone] | | | | | | | [...] [place] | | | | | | [address] | | | | | | [phone] | | | | | | | | +--------+ + + + + | 02/09/ | Office | Neurology | Dhara, | | | 2019 | Visit | | [address]WA[address] Ross [address] [place], | | | | | | [place] [address] | | | | | | [phone] | | | | | | | [...]
--- OUTSIDE RECORDS SUMMARY | ~2019-09-30 | XMS | Encounter Summary ---
Demographics + + + | Address | [address] | | | [place] [address] | + + + | Home Phone [...] Team Providers + +------+ + | Care Pest Control Technician Name | Role | Phone | + +------+ + | Erika Ernst DO | PCP | | + +------+ + Encounter Details +--------+ + + + + | Date | Type | Department | Care Team | Description | +--------+ + + + + | 07/23/ | Hospital | [facility] [facility] | Herbert Herron | Right foot pain | | 2019 | Encounter | [facility] | LISA [facility] [address] | | | | | ORTHOPAEDICS XRAY | [place], | | | | | [address] [place] | [place] [address] | | | | | [place], [place] | [phone] | | | | | [address] | | | | | | [phone] | | | +--------+ + + + [...] lungs. | | | | | | (NENO FISCHER IN) | | | | | | [...] 60 vial | 0 | 04/21/ | | | mL nebulizer | treatments [...] | 04/12/20 | | | (VITAMIN D3) 46817 | mouth Once a week | tablet [...] + +---------+ + + | mupirocin | Apply a thin amount | 22 g | 0 | 07/20/20 | | | (BACTROBAN) 2% | to affected area 2 | | | 19 | 9 | | ointmentIndications: | times per day for 10 | | | | | | Blister | days, reevaluate if | | | | | | | no response | | | | | + + [...] capsule by | 30 | 11 | 07/19/20 | | | 5 mg capsule | mouth Daily. | capsule [...] | | | | | [place] [address] | | | | | | [phone] | | | | | | | | +--------+ + + + + | 10/30/ | Office | Primary Care | Erika Ernst, | | | 2019 | Visit | | DO [address] [place] | | | | | | [place] [address] | | | | | | [phone] | | | | | | | [...] [place] | | | | | | [address] | | | | | | [phone] | | | | | | | | +--------+ + + + + | 02/09/ | Office | Neurology | Dhara, | | | 2019 | Visit | | DWAINE Ross [address] | | | | | [address] [place], | | | | | | [place] [address] | | | | | | [phone] | | | | | | | | +--------+ + + + + documented as of this encounter Procedures + +--------+ + + + | Procedure Name | Priori | Date/Time | Associated Diagnosis | Comments | | | ty | | | | + +--------+ + + + | XR FOOT RIGHT 3 + VW | Routin | 07/23/2019 | Right foot pain | Results for this | | | e | 4:40 PM | | procedure are in the | | | | PDT | | results section. | + +--------+ + + + documented in this encounter Results XR Foot Right 3 + Vw (07/23/2019 4:40 PM PDT) + + | Specimen | + + | | + + + + + | Impressions | Performed At | + + + | 1. No acute finding. 2. Excision of the accessory navicular bone | [facility] | | redemonstrated. Dictated by: Chris Bedolla Electronically | | | Signed by: Chris Bedolla on 07/23/2019 4:48 PM | | + + + + + + | Narrative | Performed At | + + + | EXAMINATION: XR FOOT RIGHT 3 + VW HISTORY: Navicular pain, | [facility] | | swelling over navicular. H/O foot surgery 2016 (excision accesory | | | navicular) COMPARISON STUDY: 03/14/2018. 03/07/2016. | | | 01/22/2015. 04/06/2014. FINDINGS: No acute bone finding. No | | | joint space narrowing evident. The navicula appears unremarkable. | | | If concern for acute fracture remains clinically follow-up images in | | | 10 to 14 days recommended. . | | + + + + -------+ | Procedure Note | + -------+ | Mitchel, Rad Results In - 07/23/2019 4:51 PM PDT EXAMINATION:XR FOOT RIGHT 3 + | | VWHISTORY:Navicular pain, swelling over navicular. H/O foot surgery 2016 (excision | | accesory navicular)COMPARISON STUDY:03/14/2018. 03/07/2016. 01/22/2015. | | 04/06/2014.FINDINGS:No acute bone finding. No joint space narrowing evident. The | | navicula appears unremarkable.If concern for acute fracture remains clinically follow-up | | images in 10 to 14 days recommended. .IMPRESSION: 1. No acute finding.2. Excision of | | the accessory navicular bone redemonstrated.Dictated by: Chris BedollaElectronically | | Signed by: Chris Bedolla on 07/23/2019 4:48 PM | | | |FINDINGS: | |No acute bone finding. No joint space narrowing evident. The navicula appears unremarkabl e. | |If concern for acute fracture remains clinically follow-up images in 10 to 14 days recommen ded. . | | | |IMPRESSION: | |1. No acute finding. | |2. 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 | | | | | |Dictated by: [...]
--- OUTSIDE RECORDS SUMMARY | ~2019-09-30 | XMS | Encounter Summary ---
Demographics + + + | Address | [address] | | | [place] [address] | + + + | Home Phone [...] Team Providers + +------+ + | Care Cutter Operator Tile Name | Role | Phone | + +------+ + | Erika Ernst DO | PCP | | + +------+ + Reason for Visit +--------+ + | Reason | Comments | +--------+ + | Other | nurse visit | +--------+ + Encounter Details +--------+ + + + + | Date | Type | Department | Care Team | Description | +--------+ + + + + | 07/23/ | Clinical | [facility] [facility] | Erika Ernst, | | | 2018 | Support | [facility] | DO [address] | | | | | [facility] [address] | [place] [address] | | | | | [address] [place], | [phone] | | | | | [place] [address] | | | | | | [phone] | | | +--------+ + + + [...] documented as of this encounter Progress Notes Vernell Alvarado RN - 07/23/2019 3:15 PM PDTPatient here for Nurse visit. States she wa s at the [facility] couple days ago for an affected area on her hip. Patient states it has gotten worse,and she thinks it is spreading and it is more painful to the touch and red. She was t old to return if symptoms occurs. I did not see any drainage, some redness noted around the area and warm. Patient advised to return to [facility] so it can be evaluated. Patient states she is on augmentin and was given bactrim also. Patient had another appt elsewhere and would re turn to [facility] when finished. shelleyc documented in this encounter Plan of Treatment +--------+ + + + + | Date | Type | Specialty | Care Team | Description | +--------+ + + + + | 10/01/ | Office | Primary Care | Erika Ernst, | | | 2018 | Visit | | DO [address] | | | | | | [place] [address] | | | | | | [phone] | | | | | | | | +--------+ + + + + | 10/30/ | Office | Primary Care | Erika Ernst, | | | 2019 | Visit | | DO [address] [place] | | | | | | [place] [address] | | | | | | [phone] | | | | | | | [...] [place] | | | | | | [address] | | | | | | [phone] | | | | | | | | +--------+ + + + + | 02/09/ | Office | Neurology | Dhara, | | | 2019 | Visit | | [address]WA[address] Ross [address] [place], | | | | | | [place] [address] | | | | | | [phone] | | | | | | | | +--------+ + + + + documented as of this encounter Visit Diagnoses Not on filedocumented in this encounter"
--- OUTSIDE RECORDS SUMMARY | ~2019-09-30 | XMS | Encounter Summary ---
Demographics + + + | Address | [address] | | | [place] [address] | + + + | Home Phone [...] Team Providers + +------+ + | Care Jewel Stringer Name | Role | Phone | + +------+ + PCP | Unavailable | + +------+ + Encounter Details +--------+ + + + + | Date | Type | Department | Care Team | Description | +--------+ + + + + | 04/21/ | [facility] | [facility] | Travis Malone FNP | | | 2014 | Encounter | [facility] | [address] | | | | | [facility] [address] | [place] | | | | [facility] [address] [facility] | [address] | | | | | [place] [address] | [phone] | | | | | [phone] | | | +--------+ + + + [...] | | | | | [place] [address] | | | | | | [phone] | | | | | | | | +--------+ + + + + | 10/30/ | Office | Primary Care | Erika Ernst, | | | 2019 | Visit | | DO [address] | | | | | | [place] [address] | | | | | | [phone] | | | | | | | | +--------+ + + + + | 11/07/ | Appointment | Nutrition | Janel Webster | | | 2019 | | | [place] | | +--------+ + + + + | 11/28/ | Office | Otolaryngology | Anthony Alvarado MD | | 2019 | Visit | | [address] | | | | | | [place], [place] | | | | | | [address] | | | | | | [phone] | | | | | | | | +--------+ + + + + | 02/09/ | Office | Neurology | Dhara, | | | 2020 | Visit | | [address]WA[address] | | [address] [place], | | | | | | [place] [address] | | | | | | [phone] | | | | | | | | +--------+ + + + + documented as of this encounter Visit Diagnoses Not on filedocumented in this encounter"
--- OUTSIDE RECORDS SUMMARY | ~2019-09-30 | XMS | Encounter Summary ---
Demographics + + + | Address | [address] | | | [place] [address] | + + + | Home Phone [...] Providers + +------+ + | Care Embedded Nurse Name | Role | Phone | + +------+ + | Erika Ernst DO | PCP | | + +------+ + Reason for Visit +--------+ + | Reason | Comments | +--------+ + | Other | requesting return to work letter | +--------+ + Encounter Details +--------+ + + + + | Date | Type | Department | Care Team | Description | +--------+ + + + + | 05/09/ | Telephone | [facility] [facility] | Emily Mittal DPM | Other (requesting | | 2018 | | [facility] | [address] [place] | return to work | | | | [address] [place] | [place], [place] | letter) | | | | [place], [place] | [address] | | | | | [address] | | | | | | [phone] | | | +--------+ + + + [...] | | | | | [place] [address] | | | | | | [phone] | | | | | | | | +--------+ + + + + | 10/30/ | Office | Primary Care | Erika Ernst, | | | 2019 | Visit | | DO [address] | | | | | | [place] [address] | | | | | | [phone] | | | | | | | [...] [place] | | | | | | [address] | | | | | | [phone] | | | | | | | | +--------+ + + + + | 02/09/ | Office | Neurology | Dhara, | | | 2020 | Visit | | [address] | | | | | | [address] [place], | | | | | | [place] [address] | | | | | | [phone] | | | | | | | | +--------+ + + + + documented as of this encounter Visit Diagnoses Not on filedocumented in this encounter"
--- OUTSIDE RECORDS SUMMARY | ~2019-09-30 | XMS | Encounter Summary ---
Demographics + + + | Address | [address] | | | [place] [address] | + + + | Home Phone [...] Team Providers + +------+ + | Care Welfare Administrator Name | Role | Phone | + [...] | | | Services | Surgery | Hand | Erika A, DO | Orthopedic | | | Required | | injury, | [address] | [address] | | | | | right, | [place], | [place] | | | | | subsequent | [place] [address] | [place], [place] | | | | | encounter | Phone: | [phone] | | | | | Finger pain, | [phone] | Phone: | | | | | right | Fax: | [phone] | | | | | Procedures | [phone] | Fax: | | | | | [place] | | [phone] | + + + + + + + Reason for Visit + + + | Reason | Comments | + + + | Follow-up | Work comp hand injury | + + + Encounter Details +--------+---------+ + + + | Date | Type | Department | Care Team | Description | +--------+---------+ + + + | 07/31/ | Office | [place] [facility] | Erika Ernst, | Hand injury, right, | | 2019 | Visit | [facility] | DO [address] | subsequent encounter | | | | [facility]ICAL [facility] [address] | [place] [address] | (Primary Dx); | | | | [address] [place], | [phone] | Finger pain, right | | | | [place] [address] | | | | | | [phone] | | | +--------+---------+ + + + [...] + + + | Blood Pressure | 148/96 | 07/31/2019 4:08 PM | | | | | PDT | | + + + + + | Pulse | 101 | 07/31/2019 4:08 PM | | | | | PDT | | + + + + + | Temperature | - | - | | + + + + + | Respiratory Rate | 18 | 07/31/2019 4:08 PM | | | | | PDT | | + + + + + | Oxygen Saturation | 99% | 07/31/2019 4:08 PM | | | | | PDT | | + + + + + | Inhaled Oxygen | - | - | | | Concentration | | | | + + + + + | Weight | 174.6 kg (385 lb) | 07/31/2019 4:08 PM | | | | | PDT | | + + + + + | Height | 177.8 cm (5' 10") | 07/31/2019 4:08 PM | | | | | PDT | | + + + + + | Body Mass Index | 55.24 | 07/31/2019 4:08 PM | | | | | PDT | | + + + + + documented in this encounter Erika Kumar DO - 07/31/2019 4:20 PM PDTFormatting of this note might be different fro m the original. Subjective: Patient ID: Andrea Suh is a 29 y.o. female. Here to discuss her right small finger pain. She has been seeing Dr Noriega hand surgeon for her work comp injury and tendon repair to the right wrist. She had surgery on 03/20 on the ist and is still recovering. She would like attention to the newer issue when she had a fall at work on 06/13/19 when she tripped over a child and landed on her right out stretched hand . She was seen in the ER and xray was negative. She has discussed with Dr Noriega at her appoi ntments for her wrist but her concern is that she has continued to have pain in the middle j oint of the small finger on the right from the fall on Jun 13. We will do a new specific re ferral for more attention to this issue. 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 No numbness or the small finger and has ROM but does feel like it is swollen. Review of Systems As above Objective: BP (!) 148/96 | Pulse 101 | Resp 18 | Ht 1.778 m (5' 10") | Wt (!) 174.6 kg (385 lb) | LMP 07/15/2019 (Exact Date) | SpO2 99% | BMI 55.24 kg/m Physical Exam Constitutional: She appears well-developed and well-nourished. No distress. Musculoskeletal: Normal range of motion. She exhibits no deformity. FROM of the sm right finger Skin: Skin is warm and dry. Right small finger middle distal joint with tenderness to palpation no redness or open area s. Assessment: 1. Hand injury, right, subsequent encounter [facility]B [facility]erral [facility] 2. Finger pain, right AMB Referral to [facility] Plan: Referral to Ortho for the right small finger pain Work comp. documented in this en counter Plan of Treatment +--------+ + + + + | Date | Type | Specialty | Care Team | Description | +--------+ + + + + | 10/01/ | Office | Primary Care | Erika Ernst, | | | 2018 | Visit | | DO [address] | | | | | | [place] [address] | | | | | | [phone] | | | | | | | | +--------+ + + + + | 10/30/ | Office | Primary Care | Erika Ernst, | | | 2019 | Visit | | DO [address] [place] | | | | | | [place] [address] | | | | | | [phone] | | | | | | | [...] [place] | | | | | | [address] | | | | | | [phone] | | | | | | | | +--------+ + + + + | 02/09/ | Office | Neurology | Dhara, | | | 2019 | Visit | | [address]WA[address] Ross [address] | | | | [address] [place], | | | | | | [place] [address] | | | | | | [phone] | | | | | | | | +--------+ + + + + + + +--------+ + + | Name | Type | Priori | Associated Diagnoses | Order Schedule | | | | ty | | | + + +--------+ + + | AMB Referral to [facility] | Outpatient | Routin | Hand injury, | Ordered: 07/31/2019 | | [facility] | Referral | e | right, subsequent | | | | | | encounter Finger | | | | | | pain, right | | + + +--------+ + + documented as of this encounter Visit Diagnoses + + | Diagnosis | + + | Hand injury, right, subsequent encounter - Primary | + + | Finger pain, right Pain in limb | + + documented in this encounter
--- OUTSIDE RECORDS SUMMARY | ~2019-09-30 | XMS | Encounter Summary ---
Demographics + + + | Address | [address] | | | [place] [address] | + + + | Home Phone [...] + + + | Author | [facility] | | | and [place] | + + + | Organization | [facility] [...] Team Providers + +------+ + | Care Traveling Electrician Name | Role | Phone | + [...] | | | | | | | [place] REPR | | | | | | | FOREARM | | | | | | | TEND/MUSC,EX | | | | | | | TEN,PRIM,EA | | | | | | | [place] REPR | | | | | | | FOREARM | | | | | | | TEND/MUSC,EX | | | | | | | TEN,SECOND | | | | | | | [place] REPR | | | | | | [...] | | [place], [place] | [place] [address] | | | | | [address] | [phone] | | | | | [phone] | | | +--------+ + + + [...] number, which [facility] and ask for the pullman conductor orthopedic provider. Be sure to mention t hat you've had surgery recently. AttachmentsThe following attachments cannot be sent through Care Everywhere.After Your Surg matt: Discharge Instructions (Sami)documented in this encounter Medications at Time of [...] | 02/29/20 | | | (VITAMIN D3) 34477 | mouth Once a week | tablet [...] | | | | | [place] [address] | | | | | | [phone] | | | | | | | | +--------+ + + + + | 10/30/ | Office | Primary Care | Erika Ernst, | | | 2019 | Visit | | DO [address] [place] | | | | | | [place] [address] | | | | | | [phone] | | | | | | | [...] [place] | | | | | | [address] | | | | | | [phone] | | | | | | | | +--------+ + + + + | 02/09/ | Office | Neurology | Dhara, | | | 2019 | Visit | | [address]WA[address] | | | [address] [place], | | | | | | [place] [address] | | | | | | [phone] | | | | | | | [...] + + | [place] [facility] | [address] | [place] [address] | [phone] | | [facility] | | | [...]
--- OUTSIDE RECORDS SUMMARY | ~2019-09-30 | XMS | Encounter Summary ---
Demographics + + + | Address | [address] | | | [place] [address] | + + + | Home Phone [...] Providers + +------+ + | Care Waste Baler Name | Role | Phone | [...] | | | of left | [place] [address] | [place], [place] | | | | | ankle, | Phone: | [phone] | | | | | subsequent | [phone] | Phone: | | | | | encounter | Fax: | [phone] | | | | | Procedures | [phone] | Fax: | | | | | [place] | | [phone] | +--------+ + + + + + Diagnostic/Screening (Routine) +--------+--------+ + + + + [...] | | | of left | [place] [address] | [address] | | | | | ankle, | Phone: | Phone: | | | | | subsequent | [phone] | [phone] | | | | | encounter | Fax: | Fax: | | | | | Procedures | [phone] | [phone] | | | | | MRI Ankle | | | | | | | Left wo | | | | | | | Contrast | | | +--------+--------+ + + + + Reason for Visit + + + | Reason | Comments | + + + | Ankle Pain | | + + + Encounter Details +--------+---------+ + + + | Date | Type | Department | Care Team | Description | +--------+---------+ + + + | 10/17/ | Office | [facility] [facility] | Erika Ernst, | Sprain of | | 2019 | Visit | [facility] | DO [address] | calcaneofibular | | | | MED[facility] [address] | [place] [address] | ligament of left | | | | [address] [place], | [phone] | ankle, subsequent | | | | [place] [address] | | encounter (Primary | | | | [phone] | | Dx) | +--------+---------+ + + + Social History [...] + + + | Blood Pressure | 130/80 | 10/17/2018 4:35 PM | | | | | PST | | + + + + + | Pulse | 136 | 10/17/2018 4:35 PM | | | | | PST | | + + + + + | Temperature | - | - | | + + + + + | Respiratory Rate | 20 | 10/17/2018 4:35 PM | | | | | PST | | + + + + + | Oxygen Saturation | 97% | 10/17/2018 4:35 PM | | | | | PST | | + + + + + | Inhaled Oxygen | - | - | | | Concentration | | | | + + + + + | Weight | 168.7 kg (372 lb) | 10/17/2018 4:35 PM | | | | | PST | | + + + + + | Height | 177.8 cm (5' 10") | 10/17/2018 4:35 PM | | | | | PST | | + + + + + | Body Mass Index | 53.38 | 10/17/2018 4:35 PM | | | | | PST | | + + + + + documented in this encounter Progress Erika Cespedes, - 10/17/2018 4:30 PM PSTFormatting of this note might be different fro m the original. Subjective: Patient ID: Andrea Suh is a 28 y.o. female. Here to FU on left ankle injury. She had a fall when she slipped on twigs in the parking lo [employer] at work on May 31, 2018 and sprained the left ankle. She did see ortho Dr Landaverde at the time and was to do PT. She has just completed PT and continues to have some weakness and pain 01/09. States the pain starts in the foot in the proximal heel area close to the foot a rch and radiates up through the medial ankle area. No swelling or redness of the area. Review of Systems As above Objective: BP 130/80 | Pulse 136 | Resp 20 | Ht 1.778 m (5' 10") | Wt (!) 168.7 kg (372 lb) | LMP 09/21/2018 | SpO2 97% | ? No | BMI 53.38 kg/m Physical Exam Constitutional: She is oriented to person, place, and time. She appears well-developed and well-nourished. No distress. Cardiovascular: Normal rate, regular rhythm and normal heart sounds. No murmur heard. Pulmonary/Chest: Effort normal and breath sounds normal. No respiratory distress. Musculoskeletal: She exhibits no edema or deformity. No erythema or swelling in the left foot area. + pedal pulse and good cap refill. Indicates the tender area near plantar surface of the heel through the arch of the foot and up throu gh the medial ankle area but only with amb. No palpable lumps in the area. Neurological: She is alert and oriented to person, place, and time. Coordination normal. Skin: Skin is warm and dry. Assessment: 1. Sprain of calcaneofibular ligament of left ankle, subsequent encounter MRI Foot Left wo Contrast MRI Ankle Left wo Contrast AMB Referral to [facility] Plan: MRI of the left foot and left ankle and referral to Ortho for FU to Dr Landaverde. documented in this en counter Plan of Treatment +--------+ + + + + | Date | Type | Specialty | Care Team | Description | +--------+ + + + + | 10/01/ | Office | Primary Care | Erika Ernst, | | | 2018 | Visit | | DO [address] [place] | | | | | | [facility] [place] [address] | | | | | | [phone] | | | | | | | | +--------+ + + + + | 10/30/ | Office | Primary Care | Erika Ernst, | | | 2019 | Visit | | DO [address] [place] | | | | | | [place] [address] | | | | | | [phone] | | | | | | | [...] [place] | | | | | | [address] | | | | | | [phone] | | | | | | | | +--------+ + + + + | 02/09/ | Office | Neurology | Dhara, | | | 2019 | Visit | | [address]WAINE Ross [address] | | | [address] [place], | | | | | | [place] [address] | | | | | | [phone] | | | | | | | | +--------+ + + + + + + +--------+ + + | Name | Type | Priori | Associated Diagnoses | Order Schedule | | | | ty | | | + + +--------+ + + | AMB Referral to [facility] | Outpatient | Routin | Sprain of | Ordered: 10/17/2018 | | [facility] | Referral | e | calcaneofibular | | | | | | ligament of left | | | | | | ankle, subsequent | | | | | | encounter | | + + +--------+ + + documented as of this encounter Results MRI Ankle Left wo [...] + | Mitchel, Rad Results In - 11/02/2018 12:47 PM PST [...] calcaneofibular ligament of left ankle, subsequent encounter - Primary | + + documented in this encounter
--- OUTSIDE RECORDS SUMMARY | ~2019-09-30 | XMS | Encounter Summary ---
Demographics + + + | Address | [address] | | | [place] [address] | + + + | Home Phone | | + + + | Preferred Language | Unknown | + + + | Marital Status | Single | + + + | Christian Affiliation | Unknown | + + + | Race | Unknown | + + + | Ethnic Group | Unknown | + + + Author + + + | Author | [facility] | | | and [place] | + + + | Organization | [facility] | | [...] Team Providers + +------+ + | Care Preschool Education Director Name | Role | Phone | + +------+ + PCP | Unavailable | + +------+ + Encounter Details +--------+ + + + + | Date | Type | Department | Care Team | Description | +--------+ + + + + | 12/30/ | [facility] | [facility] | | | 2016 | Encounter | [facility] | [address] [place] | | | | | [address] [place] | [place] | | | | | [place] | [address] | | | | | [address] | [phone] | | | | | [phone] | | | +--------+ + + + [...] | | | | | [place] [address] | | | | | | [phone] | | | | | | | | +--------+ + + + + | 10/30/ | Office | Primary Care | Erika Ernst, | | | 2019 | Visit | | DO [address] | | | | | | [place] [address] | | | | | | [phone] | | | | | | | [...] [place] | | | | | | [address] | | | | | | [phone] | | | | | | | | +--------+ + + + + | 02/09/ | Office | Neurology | Dhara, | | | 2019 | Visit | | DWA[address] | | | [address] [place], | | | | | | [place] [address] | | | | | | [phone] | | | | | | | | +--------+ + + + + documented as of this encounter Procedures + +--------+ + + + | Procedure Name | Priori | Date/Time | Associated Diagnosis | Comments | | | ty | | | | + +--------+ + + + | XR CHEST 2 VIEWS | Routin | 12/30/2016 | | Results for this | | | e | 9:40 AM | | procedure are in the | | | | PDT | | results section. | + +--------+ + + + documented in this encounter Results XR Chest 2 VW (12/30/2016 9:40 AM PDT) + + | Specimen | + + | | + + + + + | Narrative | Performed At | + + + | EXAMINATION: CHEST PA & LAT (2V) HISTORY: ASTHMA PERSISTENT | | | COUGH 2 WEEKS ADVENTITIOUS LUNG SOUNDS COMPARISON STUDY: | | | 04/12/2016 FINDINGS: The lungs are well ventilated. No pleural | | | effusion. No pneumothorax. Cardiomediastinal silhouette is normal. | | | Evaluation of osseous structures demonstrates no focal abnormality. | | | . IMPRESSION: No acute cardiopulmonary process. JOB #: | | | [id number] Digitally Released by: Anjelica Bedolla Read By: ANJELICA | | | Oliver BEDOLLA MD Date: 12/30/2016 09:59 | | + + + + + | Procedure Note | + + | Mitchel, Yoni Results In - 10/12/2017 12:00 PM PST EXAMINATION: | | CHEST PA & LAT (2V) | | | | HISTORY: | | ASTHMA PERSISTENT COUGH 2 WEEKS ADVENTITIOUS LUNG SOUNDS | | | | COMPARISON STUDY: | | 04/12/2016 | | | | FINDINGS: | | The lungs are well ventilated. No pleural effusion. No pneumothorax. | | Cardiomediastinal silhouette is normal. Evaluation of osseous structures | | demonstrates no focal abnormality. . | | | | IMPRESSION: | | No acute cardiopulmonary process. | | | | | | JOB #: [id number] | | Digitally Released by: Anjelica Bedolla | | | | | | Read By: ANJELICA BEDOLLA MD | | Date: 12/30/2016 09:59 | | | + + documented in this encounter Visit Diagnoses Not on filedocumented in this encounter"
--- OUTSIDE RECORDS SUMMARY | ~2019-09-30 | XMS | Encounter Summary ---
Demographics + + + | Address | [address] | | | [place] [address] | + + + | Home Phone [...] Team Providers + +------+ + | Care Ged Tutor Name | Role | Phone | + [...] | | | | s (de | [place], [place] | [place] [address] | | | | | quervain) | [address] | Phone: | | | | | Pain in | Phone: | [phone] | | | | | right wrist | [phone] | Fax: | | | | | Procedures | Fax: | [phone] | | | | | OT TREAT | [phone] | | +--------+--------+ + + + + Encounter Details +--------+ + + + + | Date | Type | Department | Care Team | Description | +--------+ + + + + | 11/29/ | Hospital | [place] [facility] | Jeffrey Gandhi, | Radial styloid | | 2019 | Encounter | HOSPITAL THERAPY OT | [address] | tenosynovitis | | | | [address] | [place] [address] | (Primary Dx); Right | | | | [place], [place] | [phone] | wrist pain | | | | [address] | | | | | | [phone] | Nakia Koo OT | | +--------+ [...] | 11/26/19 | | | (VITAMIN D3) 33020 | mouth Once a week | tablet [...] encounter Progress Notes Nakia Koo, OT - 11/30/2018 9:36 AM PST Patient Information Patient: Andrea Suh Ordering Physician: Jeffrey Gandhi MD Claim #: [id number] Date of Injury: No data was found Visits since the Date of Injury Date First Treated: 08/07/2018 Total number of visits: 28 Last Period's Progress Information Period (not required for initial evaluation) From: 10/30/2018 To: 11/30/2018 Number of visits for the above period: 6 Number of missed appointments for the above period: 0 Diagnosis Information Current Pain: Pain Assessment: Pain Rating Pre Assessment: 3 Location: R wrist Diagnosis: Encounter Diagnoses Code Name Primary? 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 Dates: Previous exam: 10/30/2018 Current exam: 11/30/2018 ROM / Strength ROM at last Assessment RUE AROM R Forearm Pron: 80 R Forearm Sup: 65 R Wrist Flex: 67 R Wrist Ext : 60 R Wrist Radial Deviation : 25 R Wrist Ulnar Deviation: 28 Current ROM Range of Motion (measured in degrees): RUE AROM (degrees) R Forearm Pron: 80 R Forearm Sup: 65 R Wrist Flex: 70 R Wrist Ext : 60 R Wrist Radial Deviation: 24 R Wrist Ulnar Deviation: 21 Strength at last Assessment Left Hand Strength - Plastics Production Machine Operator (lbs) L Plastics Production Machine Operator Trial Average: 47 L Three Jaw Payam Trial Average: 12 L Lateral Pinch Trial Average: 17.33 Right Hand Strength - Plastics Production Machine Operator (lbs) R Plastics Production Machine Operator Trial Average: 25.67 R Three Jaw Payam Trial Average: 9.33 R Lateral Pinch Trial Average: 10.33 Current Strength Strength: Left Hand Strength - Plastics Production Machine Operator (lbs) L Plastics Production Machine Operator Trial 1: 51 L Plastics Production Machine Operator Trial Average: 51 Right Hand Strength - Plastics Production Machine Operator (lbs) R Plastics Production Machine Operator Trial 1: 25 R Plastics Production Machine Operator Trial Average: 25 Proposed Treatment Dates for Majoris Review Proposed treatments date: 12/06/2018 to 01/06/2019 Plan Date of Onset: 07/20/2018 Start of Care Date: 08/07/2018 Requested # of Visits: 24 visits 2x/week for 12 weeks Certification From: 10/30/2018 Certification To: 01/22/2019 Treatment Plan/Interventions OT [id number] - Therapeutic [id number] - Therapeutic [id number] - Self Care/Ho me [id number] - Manual [id number] - Orthotic/Prosthetic Zivarzoi45549 - Ehzbgqqzsh264 34 - Contrast [id number] - Paraffin BathSplinting Moist heat, cold therapy Patient and/or family has indicated understanding of treatment needs and actively participa everardo in the creation of this plan for care. Brief narrative of progress to date, functional/objective limitation to be address in the p roposed treatment period, and objective or functional gain achieved to justify continuing th erapy (if not initial request) 11/29/2018 - PROGRESS REVIEW: Andrea has made significant functional gains during this repor ting period and is compliant with wrist and vice president of consulting services strengthening exercises. She does still hav e deficits in vice president of consulting services strength and wrist stability as well as pain with daily activities. Her j ob description may be changing which would decrease the physical demands of her work, making it more appropriate for her current status. She continues to benefit from [facility] apy to maximize her vice president of consulting services strength and wrist stability following this injury and return her t o prior level of function. 10/30/2018 - REASON FOR RE-CERTIFICATION: Andrea has received 12 Occupational Therapy treatme nts since 08/07/2018 following her right wrist surgery. She has regained full AROM of the rig ht wrist but continues to have right wrist, vice president of consulting services and pinch weakness and significant pain (3- 03/11) with daily activities with associated decline in functional performance, in part becau se she still has a lifting restriction of 15 lbs. She has returned to modified work duty. Krystle doss continues to benefit from Occupational Therapy to address these deficits and facilitate re turn to full functional use of her right [...] in 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, and vice president of consulting services and pinch weakness in the right hand [...] Guarded/ N/A): LIKELY Comments, including work recommendations: Lifting restriction has been lifted by the MD so able to focus primarily on strengthening n ow. Pt's work is considering re-assigning the patient to case management role which would in volve primarily office type work. Electronically signed by: Nakia Koo OT, 11/30/2018 9:36 Nakia [place], OT - 11/30/2018 8:07 AM PSTFormatting of t his note might be different from the original. [facility] OT [address] [place] [address] Occupational Therapy Progress Assessment Date: 11/29/2018 Patient Information Patient Name: Andrea Suh Date of : 1990 Age: 28 y.o. Encounter Diagnoses Code Name Primary? M65.4 Radial styloid tenosynovitis Yes M25.531 Right wrist pain Date of Onset: 07/20/2018 Referring Provider: Jeffrey Gandhi MD Objective Pain Assessment: Pain Rating Pre Assessment: 3 Location: R wrist Standardized Tests: QuickDASH (QD) Open a tight or new jar: 3 - Moderate Difficulty Do heavy recovery manager: 2 - Mild Difficulty Carry a shopping bag or briefcase: 1 - No Difficulty Wash your back: 1 - No Difficulty Use a Knife to cut food: 2 - Mild Difficulty Recreational Activities which impact the UE: 2 - Mild Difficulty Interfered with Social Activities: 2 - Slightly Limit Work or Regular Daily Activities: 3 - Moderately Limited Arm, shoulder or hand pain: 3 - Moderate Tingling in arm, shoulder or hand: 2 - Mild Difficulty Sleeping due to pain in UE: 2 - Mild Difficulty QuickDASH Mean Score (Calculated): 2.09 QuickDASH Disability/Symptom Score (Calculated): 27.27 QuickDASH Goal: The pt will have increased functional use of her right hand indicated by a QuickDASH score of 15% with pain no greater than 2/10 with daily activities by discharge QuickDASH Goal Status: PARTIALLY MET at PN 11/29/2018 - QuickDASH score has decreased signif icantly from 80% initially to 27% with pain ranging from 2-4/10 with daily activities Range of Motion (measured in degrees): RUE AROM (degrees) R Forearm Pron: 80 R Forearm Sup: 65 R Wrist Flex: 70 R Wrist Ext : 60 R Wrist Radial Deviation: 24 R Wrist Ulnar Deviation: 21 Strength: Left Hand Strength - Plastics Production Machine Operator (lbs) L Plastics Production Machine Operator Trial 1: 51 L Plastics Production Machine Operator Trial Average: 51 Right Hand Strength - Plastics Production Machine Operator (lbs) R Plastics Production Machine Operator Trial 1: 25 R Plastics Production Machine Operator Trial Average: 25 Today's Treatment Patient Name: Andrea King Noblit/: 1990/ Start Time: 801 Stop time: 854 Duration: 53 minutes Timed Treatment Codes: 50 minutes # of OT Visits: 18.1 Visit Summary: S: Dr Gandhi has asked that I continue with therapy to focus on strengthening . I am doing my exercises - including red putty, hand helper with 2 red bands, the hammer. 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 A: Continued focus on wrist strengthening and faciltiating increased stabilization of the wrist. Next Visit: Contiued strengtheing Interventions OT INTERVENTION 2: TE - 35 minutes: Wrist exercises - 5 lb weight flexion, extension and d eviation x 10 each position. Hammer for controlled and resisted supination/pronation. 1 kg ball - CW and CCW x 5 each direction. UBC cycle 85-105 thomas x 8 minutes (skilled to monitor pt maintianing work effort and response) alternating forward and backward each minute. Wris t roll with 5 lbs x 3, biceps curls with press 8 lbs x 10 OT MANUAL THERAPY 1: Manual (15 minutes): Graston technique and gentle PROM to R dorsal wri st and proximally up into the forearm, K taping to R wrist/FA for support OT MODALITY 1: NB: Moist heat at start of session to circumference of R wrist to increase c irculation, joint and soft tissue mobility. Pt displays normal tissue response with no adver se rxn to modality. Assessment 11/29/2018 - PROGRESS REVIEW: Andrea has made significant functional gains during this repor ting period and is compliant with wrist and vice president of consulting services strengthening exercises. She does still hav e deficits in vice president of consulting services strength and wrist stability as well as pain with daily activities. Her j ob description may be changing which would decrease the physical demands of her work, making it more appropriate for her current status. She continues to benefit from [facility] apy to maximize her vice president of consulting services strength and wrist stability following this injury and return her t o prior level of function. 10/30/2018 - REASON FOR RE-CERTIFICATION: Andrea has received 12 Occupational Therapy treatme nts since 08/07/2018 following her right wrist surgery. She has regained full AROM of the rig ht wrist but continues to have right wrist, vice president of consulting services and pinch weakness and significant pain (3- 6/10) with daily activities with associated decline in functional performance, in part becau se she still has a lifting restriction of 15 lbs. She has returned to modified work duty. Krystle doss continues to benefit from Occupational Therapy to address these deficits and facilitate re turn to full functional use of her right [...] in 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, and vice president of consulting services and pinch weakness in the right hand [...] by discharge QuickDASH Goal Status: PARTIALLY MET at PN 11/29/2018 - QuickDASH score has decreased signif icantly from 80% initially to 27% with pain ranging from 2-4/10 with daily activities OP OT Goals Goal 2: The pt will have right vice president of consulting services strength of 50 lbs by discharge Goal 2 Status: PARTIALLY MET at PN 11/29/2018 - Right vice president of consulting services has increased from 20 to 26 lbs s jessie evaluaiton. Left vice president of consulting services is 47 lbs Goal 3: The pt will have increased right pinch strength to 13 lbs by discharge Goal 3 Status: PARTIALLY MET at PN 11/01/2018 - right pinch is 9 lbs, left is 15 lbs Goal 4: The pt will be independent and compliant with HEP Goal 4 Status: ONGOING - pt reports daily compliance with HEP which includes wrist, vice president of consulting services an d pinch strengthening as well as general UE strengthening Plan Date of Onset: 07/20/2018 Start of Care Date: 08/07/2018 Requested # of Visits: 24 visits 2x/week for 12 weeks Certification From: 10/30/2018 Certification To: 01/22/2019 Treatment Plan/Interventions OT [id number] - Therapeutic Otuytidy32701 - Therapeutic Rwhgthfboi23774 - Self Care/Ho me Tayxtmhlns50502 - Manual Vvqyvzc42338 - Orthotic/Prosthetic Xivdqfeb62199 - Abdmmilfve827 34 - Contrast Thlp50993 - Paraffin BathSplinting Moist heat, cold therapy Patient and/or family has indicated understanding of treatment needs and actively participa everardo in the creation of this plan for care. Electronically signed by: Nakia Koo OT, 11/30/2018 8:13 Patient Name: Andrea Suh/: 1990/ signed by Nakia Koo OT at 11/30/2018 9:49 AM PSTdocumented in this encounter Plan of Treatment +--------+ + + + + | Date | Type | Specialty | Care Team | Description | +--------+ + + + + | 10/01/ | Office | Primary Care | Erika Ernst, | | | 2018 | Visit | | DO [address] | | | | | | [place] [address] | | | | | | [phone] | | | | | | | | +--------+ + + + + | 10/30/ | Office | Primary Care | Erika Ernst, | | | 2019 | Visit | | DO [address] | | | | | | [place] [address] | | | | | | [phone] | | | | | | | [...] [place] | | | | | | [address] | | | | | | [phone] | | | | | | | | +--------+ + + + + | 02/09/ | Office | Neurology | Dhara, | | | 2019 | Visit | | [address] | | [address] [place], | | | | | | [place] [address] | | | | | | [phone] | | | | | | | | +--------+ + + + + documented as of this encounter Visit Diagnoses + + | Diagnosis | + + | Radial styloid tenosynovitis - Primary | + + | Right wrist pain Pain in joint, forearm | + + documented in this encounter"
--- OUTSIDE RECORDS SUMMARY | ~2019-09-30 | XMS | Encounter Summary ---
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 | | | [...] | : 1990 | Medical Record Number:[id number] | Author: Emily Mittal DPM | Date [...] BID 60 tablet 3 Cholecalciferol (VITAMIN D3) 99314 units TABS Take 1 tablet by mouth [...] PROCEDURE 01/20/2016 Surgeon: Fani Mahajan MD; Location: [facility] TENDON RELEASE TONSILLECTOMY WISDOM TOOTH EXTRACTION Family History Problem Relation Age of Onset Other (see comment) Mother gallbladder disease Hypertension Father Other (see comment) Father arrhymthmia Breast cancer Sister Cervical cancer Maternal Grandmother Heart attack Maternal Aunt [place] Social History Social History Marital status: Single [...] and their vital signs recorded by my preschool assistant today, leslie alvarez found in this chart note. Electronically signed by: Emily Mittal DPM 12/06/2018 at 14:59 Note: Part of this report was transcribed using voice recognition software. Every effort wa s made to ensure accuracy. However, inadvertent computerized manager mental health errors may be pre sent. CC: Erika [...] | | | | | [place] [address] | | | | | | [phone] | | | | | | | | +--------+ + + + + | 10/30/ | Office | Primary Care | Erika Ernst, | | | 2019 | Visit | | DO [address] [place] | | | | | | [place] [address] | | | | | | [phone] | | | | | | | [...] [place] | | | | | | [address] | | | | | | [phone] | | | | | | | | +--------+ + + + + | 02/09/ | Office | Neurology | Dhara, | | | 2019 | Visit | | [address] [place], | | | | | | [place] [address] | | | | | | [phone] | | | | | | | [...] IMAGING | | COMPARISON STUDY: None FINDINGS: [place] angle 46 degrees. | | | Talocalcaneal [...] LEFT 3 + | | VWHISTORY:pes planusCOMPARISON STUDY:NoneFINDINGS:[place] angle 46 degrees.Talocalcaneal | | angle 25 [...] | |None | | | |FINDINGS: | |[place] angle 46 degrees. | | | |Talocalcaneal [...]
--- OUTSIDE RECORDS SUMMARY | ~2019-09-30 | XMS | Encounter Summary ---
Demographics + + + | Address | [address] | | | [place] [address] | + + + | Home Phone [...] Team Providers + +------+ + | Care Woodworking Shop Laborer Name | Role | Phone | + +------+ + PCP | Unavailable | + +------+ + Encounter Details +--------+ + + + + | Date | Type | Department | Care Team | Description | +--------+ + + + + | 09/13/ | [facility] | Bo Bhat | | | 2013 | Encounter | [facility]Y | [address] | | | | | C[address] [place], [place] | | | | | [place], [place] | [address] | | | | | [address] | | | | | | [phone] | | | +--------+ + + + [...] | | | | | [place] [address] | | | | | | [phone] | | | | | | | | +--------+ + + + + | 10/30/ | Office | Primary Care | Erika Ernst, | | | 2019 | Visit | | DO [address] [place] | | | | | | [place] [address] | | | | | | [phone] | | | | | | | [...] [place] | | | | | | [address] | | | | | | [phone] | | | | | | | | +--------+ + + + + | 02/09/ | Office | Neurology | Dhara, | | | 2020 | Visit | | [address]WA[address] [place], | | | | | | [place] [address] | | | | | | [phone] | | | | | | | | +--------+ + + + + documented as of this encounter Visit Diagnoses Not on filedocumented in this encounter"
--- OUTSIDE RECORDS SUMMARY | ~2019-09-30 | XMS | Encounter Summary ---
Demographics + + + | Address | [address] | | | [place] [address] | + + + | Home Phone [...] Team Providers + +------+ + | Care Paralegal Legal Secretary Name | Role | Phone | + +------+ + PCP | Unavailable | + +------+ + Encounter Details +--------+ + + + + | Date | Type | Department | Care Team | Description | +--------+ + + + + | 09/12/ | [facility] | Amparo Timmons | | | 2016 | Encounter | HOSPITAL EMERGENCY | C, GEOPHYSICIST [address] | | | | | CENTER [address] | [place] | | | | | [place] | [address] | | | | | [address] | | | | | | [phone] | | | +--------+ + + + [...] | | | | | [place] [address] | | | | | | [phone] | | | | | | | | +--------+ + + + + | 10/30/ | Office | Primary Care | Erika Ernst, | | | 2019 | Visit | | DO [address] [place] | | | | | | [place] [address] | | | | | | [phone] | | | | | | | [...] [place] | | | | | | [address] | | | | | | [phone] | | | | | | | | +--------+ + + + + | 02/09/ | Office | Neurology | Dhara, | | | 2019 | Visit | | [address]WA[address] [place], | | | | | | [place] [address] | | | | | | [phone] | | | | | | | | +--------+ + + + + documented as of this encounter Visit Diagnoses Not on filedocumented in this encounter"
--- OUTSIDE RECORDS SUMMARY | ~2019-09-30 | XMS | Encounter Summary ---
Demographics + + + | Address | [address] | | | [place] [address] | + + + | Home Phone [...] + + + | Author | [facility] | | | and [place] | + + + | Organization | [facility] | | | [...] Team Providers + +------+ + | Care Bmet Name | Role | Phone | + [...] | CENTER [address] [place], [place] | | | | | [place], [place] | [address] | | | | | [address] | | | | | | [phone] | | | +--------+ + + + [...] | | | | | [place] [address] | | | | | | [phone] | | | | | | | | +--------+ + + + + | 10/30/ | Office | Primary Care | Erika Ernst, | | | 2019 | Visit | | DO [address] [place] | | | | | | [place] [address] | | | | | | [phone] | | | | | | | [...] [place] | | | | | | [address] | | | | | | [phone] | | | | | | | | +--------+ + + + + | 02/09/ | Office | Neurology | Dhara, | | | 2020 | Visit | | [address]WA[address] [place], | | | | | | [place] [address] | | | | | | [phone] | | | | | | | | +--------+ + + + + documented as of this encounter Visit Diagnoses Not on filedocumented in this encounter"
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
--- OUTSIDE RECORDS SUMMARY | ~2019-09-30 | XMS | Encounter Summary ---
Demographics + + + | Address | [address] | | | [place] [address] | + + + | Home Phone [...] Team Providers + +------+ + | Care Program Proposals Coordinator Name | Role | Phone | [...] | | | | | sinusitis, | [address] | | | | | | unspecified | Phone: | | | | | | chronicity | [phone] | | | | | | Procedures | Fax: | | | | | | CT Sinus WO | [phone] | | | | | | Contrast [...] | | | | | sinusitis, | [address] | | | | | | unspecified | Phone: | | | | | | chronicity | [phone] | | | | | | Procedures | Fax: | | | | | | CT Sinus WO | [phone] | | | | | | Contrast [...] | | [place], [place] | [place] [address] | sinusitis, | | | | [address] | [phone] | unspecified | | | | [phone] | | chronicity | +--------+ + + [...] | 11/26/19 | | | (VITAMIN D3) 77917 | mouth Once a week | tablet | | 19 | 9 | | units TABS | for 16 doses. | | | | | + + + +---------+ + + | D3-50 97110 units | | | 0 | 12/13/19 [...] | | | | | [place] [address] | | | | | | [phone] | | | | | | | | +--------+ + + + + | 10/30/ | Office | Primary Care | Erika Ernst, | | | 2019 | Visit | | DO [address] [place] | | | | | | [place] [address] | | | | | | [phone] | | | | | | | [...] [place] | | | | | | [address] | | | | | | [phone] | | | | | | | | +--------+ + + + + | 02/09/ | Office | Neurology | Dhara, | | | 2019 | Visit | | DWAINE Ross [address] | [address] [place], | | | | | | [place] [address] | | | | | | [phone] | | | | | | | [...]
--- OUTSIDE RECORDS SUMMARY | ~2019-09-30 | XMS | Encounter Summary ---
Demographics + + + | Address | [address] | | | [place] [address] | + + + | Home Phone [...] Team Providers + +------+ + | Care Telegraph Printer Mechanic Name | Role | Phone | [...] | | | | disorder) | [place] [address] | [place] | | | | | Anxiety | Phone: | RECOVERY | | | | | | [phone] | [address] | | | | | | Fax: | [place], [place] | | | | | | [phone] | [address] | | | | | | | Phone: | | | | | | | [phone] | | | | | | | Fax: | | | | | | | [phone] | +--------+ + + + + + [...] | | | [facility] [address] | [place] [address] | allergies (Primary | | | | [address] [facility], | [phone] | Dx); PTSD | | | | [place] [address] | | (post-traumatic | | | | [phone] | | stress disorder); | | | [...] states the therapist she was seeing in [facility] o has moved. We will refer her to Radha Lamb her in [place]. She states anxiety has bee n a [...] daily. 30 tablet 0 Cholecalciferol (VITAMIN D3) 00905 units TABS Take 1 tablet by mouth [...] one week. Referral to Radha Lamb at [facility] for mental health therapy. documented in [...] | | | | | [place] [address] | | | | | | [phone] | | | | | | | | +--------+ + + + + | 10/30/ | Office | Primary Care | Erika Ernst, | | | 2019 | Visit | | DO [address] [place] | | | | | | [place] [address] | | | | | | [phone] | | | | | | | [...] [place] | | | | | | [address] | | | | | | [phone] | | | | | | | | +--------+ + + + + | 02/09/ | Office | Neurology | Dhara, | | | 2019 | Visit | | DWAINE Ross [address] | | [address] [place], | | | | | | [place] [address] | | | | | | [phone] | | | | | | | [...]
--- OUTSIDE RECORDS SUMMARY | ~2019-09-30 | XMS | Encounter Summary ---
Demographics + + + | Address | [address] | | | [place] [address] | + + + | Home Phone [...] Providers + +------+ + | Care Passenger Car Conductor Name | Role | Phone | [...] | | | | severe | [place] [address] | [place], [place] | | | | | obesity due | Phone: | [address] | | | | | to excess | [phone] | Phone: | | | | | calories | Fax: | [phone] | | | | | without | [phone] | Fax: | | | | | serious | | [phone] | | | | | comorbidity | [...] | | | | | | | [place] MED NUTR | | | | | | | THER, 1ST, | | | | | | | INDIV, EA 15 | | | | | | | MIN [place] | | | | | | [...] | SERVICES [address] | [place] [address] | Benign hypertension; | | | | [place] | [phone] | Morbid obesity | | | | [address] | | ([facility]); Adult body | | | | [phone] | Janel Webster, | mass index 50.0-59.9 | | | | | RD | ([facility]) | +--------+ + + + + Social [...] | 02/29/20 | | | (VITAMIN D3) 34232 | mouth Once a week | tablet [...] | | | | | [place] [address] | | | | | | [phone] | | | | | | | | +--------+ + + + + | 10/30/ | Office | Primary Care | Erika Ernst, | | | 2019 | Visit | | DO [address] [place] | | | | | | [place] [address] | | | | | | [phone] | | | | | | | [...] [place] | | | | | | [address] | | | | | | [phone] | | | | | | | | +--------+ + + + + | 02/09/ | Office | Neurology | Dhara, | | | 2019 | Visit | | DWAINE Ross [address] [place], | | | | | | [place] [address] | | | | | | [phone] | | | | | | | [...]
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
--- OUTSIDE RECORDS SUMMARY | ~2019-09-30 | XMS | Encounter Summary ---
Demographics + + + | Address | [address] | | | [place] [address] | + + + | Home Phone [...] Providers + +------+ + | Care School Resource Officer Name | Role | Phone | + +------+ + | Erika Ernts DO | PCP | | + +------+ + Reason for Visit +--------+ + | Reason | Comments | +--------+ + | Other | Please Advise | +--------+ + Encounter Details +--------+ + + + + | Date | Type | Department | Care Team | Description | +--------+ + + + + | 03/20/ | Telephone | [facility] [facility] | Inocencio Noriega | Other (Please | | 2019 | | [facility] | [address] | Advise) | | | | [address] [place] | [address] | | | | | [place], [place] | [place] [address] | | | | | [address] | [phone] | | | | | [phone] | | | +--------+ + + + [...] | | | | | [place] [address] | | | | | | [phone] | | | | | | | | +--------+ + + + + | 10/30/ | Office | Primary Care | Erika Ernst, | | | 2019 | Visit | | DO [address] [facility] [address] [place] | | | | | | [place] [address] | | | | | | [phone] | | | | | | | [...] [place] | | | | | | [address] | | | | | | [phone] | | | | | | | | +--------+ + + + + | 02/09/ | Office | Neurology | Dhara, | | | 2019 | Visit | | DWAINE Ross [address] | [address] [place], | | | | | | [place] [address] | | | | | | [phone] | | | | | | | | +--------+ + + + + documented as of this encounter Visit Diagnoses Not on filedocumented in this encounter"
--- OUTSIDE RECORDS SUMMARY | ~2019-09-30 | XMS | Encounter Summary ---
Demographics + + + | Address | [address] | | | [place] [address] | + + + | Home Phone [...] Team Providers + +------+ + | Care Deck Builder Name | Role | Phone | [...] Paperwork | | 2018 | | [facility] | DO [address] | | | | | [facility] [address] | [place] [address] | | | | | [address] [place], | [phone] | | | | | [place] [address] | | | | | | [phone] | | | +--------+ + + + [...] | | | | | [place], [place] [address] | | | | | | [phone] | | | | | | | | +--------+ + + + + | 10/30/ | Office | Primary Care | Erika Ernst, | | | 2019 | Visit | | DO [address] [place] | | | | | | [place] [address] | | | | | | [phone] | | | | | | | [...] [place] | | | | | | [address] | | | | | | [phone] | | | | | | | | +--------+ + + + + | 02/09/ | Office | Neurology | Dhara, | | | 2019 | Visit | | DWAINE Ross [address] [place], | | | | | | [place] [address] | | | | | | [phone] | | | | | | | | +--------+ + + + + documented as of this encounter Visit Diagnoses Not on filedocumented in this encounter"
--- OUTSIDE RECORDS SUMMARY | ~2019-09-30 | XMS | Encounter Summary ---
Demographics + + + | Address | [address] | | | [place] [address] | + + + | Home Phone [...] Team Providers + +------+ + | Care Kindergartners Helper Name | Role | Phone | [...] | | | [place] | [address] | | | | | [address] | | | | | | [phone] | | | +--------+ + + + [...] | | | | | [place] [address] | | | | | | [phone] | | | | | | | | +--------+ + + + + | 10/30/ | Office | Primary Care | Erika Ernst, | | | 2019 | Visit | | DO [address] [place] | | | | | | [place] [address] | | | | | | [phone] | | | | | | | [...] [place] | | | | | | [address] | | | | | | [phone] | | | | | | | | +--------+ + + + + | 02/09/ | Office | Neurology | Dhara, | | | 2019 | Visit | | DWAINE Ross [address] [place], | | | | | | [place] [address] | | | | | | [phone] | | | | | | | | +--------+ + + + + documented as of this encounter Visit Diagnoses Not on filedocumented in this encounter"
--- OUTSIDE RECORDS SUMMARY | ~2019-09-30 | XMS | Encounter Summary ---
Demographics + + + | Address | [address] | | | [place] [address] | + + + | Home Phone [...] Providers + +------+ + | Care Customer Care Specialist Name | Role | Phone | + +------+ + PCP | Unavailable | + +------+ + Encounter Details +--------+ + + + + | Date | Type | Department | Care Team | Description | +--------+ + + + + | 06/30/ | [facility] | Denise Mcgregor | | | 2017 | Encounter | [facility] | G, DOUBLING MACHINE OPERATOR [address] | | | | | [address] [place] | [place] | | | | | [place] | [address] | | | | | [address] | [phone] | | | | | [phone] | | | +--------+ + + + [...] | | | | | [place] [address] | | | | | | [phone] | | | | | | | | +--------+ + + + + | 10/30/ | Office | Primary Care | Erika Ernst, | | | 2019 | Visit | | DO [address] [place] | | | | | | [place] [address] | | | | | | [phone] | | | | | | | [...] [place] | | | | | | [address] | | | | | | [phone] | | | | | | | | +--------+ + + + + | 02/09/ | Office | Neurology | Dhara, | | | 2019 | Visit | | DWAINE Ross [address] [place], | | | | | | [place] [address] | | | | | | [phone] | | | | | | | | +--------+ + + + + documented as of this encounter Procedures + +--------+ + + + | Procedure Name | Priori | Date/Time | Associated Diagnosis | Comments | | | ty | | | | + +--------+ + + + | CBC W/AUTO | Routin | 06/30/2017 | | Results for this | | DIFFERENTIAL | e | 11:09 AM | | procedure are in the | | | | PDT | | results section. | + +--------+ + + + | TSH | Routin | 06/30/2017 | | Results for this | | | e | 11:09 AM | | procedure are in the | | | | PDT | | results section. | + +--------+ + + + documented in this encounter Results TSH (06/30/2017 11:09 AM PDT) + +-------+ + + + | Component | Value | Ref Range | Performed | Pathologist | | | | | At | Signature | + +-------+ + + + | TSH | 2.26 | 0.36 - 3.74 | EXTERNAL | [...] +---------+ + + CBC w/ Auto Differential (06/30/2017 11:09 AM PDT) + +-------+ + + + | Component | Value | Ref Range | Performed | Pathologist | | | | | At | Signature | + +-------+ + + + | WBC | 8.5 | 4.3 - 10.4 | EXTERNAL | | | | | 1000/mm3 | LAB | | + +-------+ + + + | RBC | 4.35 | 4.12 - 5.30 | EXTERNAL | | | | | mil/mm3 | LAB | | + +-------+ + + + | HGB, | 11.4 | 12.4 - 15.7 | EXTERNAL | | | External | | g/dL | LAB | | + +-------+ + + + | HCT, | 35.6 | 37.7 - 47.0 % | EXTERNAL | | | External | | | LAB | | + +-------+ + + + | MCV | 82 | 82 - 97 fl | EXTERNAL | | | | | | LAB | | + +-------+ + + + | MCH | 26.2 | 27.1 - 32.3 pg | EXTERNAL | | | | | | LAB | | + +-------+ + + + | MCHC | 32 | 32.0 - 36.9 | EXTERNAL | | | | | g/dL | LAB | | + +-------+ + + + | RDW-CV | 14.8 | <=17.0 % | EXTERNAL | | | | | | LAB | | + +-------+ + + + | Platelet | 355 | 150 - 450 | EXTERNAL | | | Count | | 1000/mm3 | LAB | | | Plasma | | | | | + +-------+ + + + | MPV | 10.2 | 9.4 - 12.3 FL | EXTERNAL | | | | | | LAB | | + +-------+ + + + | % Segmented | 61.8 | 42.0 - 76.0 % | EXTERNAL | | | | | | LAB | | | Neutrophils | | | | | + +-------+ + + + | LYMPH % | 32.3 | 20.0 - 40.0 % | EXTERNAL | | | | | | LAB | | + +-------+ + + + | % Monocytes | 5.9 | <=12.0 % | EXTERNAL | | | | | | LAB | | + +-------+ + + + | Absolute | 5.3 | 2.50 - 8.50 | EXTERNAL | | | Neutrophils | | 1000/mm3 | LAB | | + +-------+ + + + | Absolute | 2.7 | 1.00 - 3.80 | EXTERNAL | | | Lymphocytes | | 1000/mm3 | LAB | | + +-------+ + + + | Absolute | 0.5 | <=1.25 1000/mm3 | EXTERNAL | | [...]
--- OUTSIDE RECORDS SUMMARY | ~2019-09-30 | XMS | Encounter Summary ---
Demographics + + + | Address | [address] | | | [place] [address] | + + + | Home Phone [...] Team Providers + +------+ + | Care Fiberglass Grinder Name | Role | Phone | + +------+ + | Erika Ernst DO | PCP | | + +------+ + Reason for Visit +--------+ + | Reason | Comments | +--------+ + | Other | FU from ED in [place] | +--------+ + Encounter Details +--------+ + + + + | Date | Type | Department | Care Team | Description | +--------+ + + + + | 08/16/ | Telephone | [facility] [facility] | Inocencio Noriega | Other (FU from ED in | | 2018 | | [facility] | [address] | [place]) | | | | [address] [place] | [address] | | | | | [place] | [place] [address] | | | | | [address] | [phone] | | | | | [phone] | | | +--------+ + + + [...] | | | | | [place] [address] | | | | | | [phone] | | | | | | | | +--------+ + + + + | 10/30/ | Office | Primary Care | Erika Ernst, | | | 2019 | Visit | | DO [address] [place] | | | | | | [place] [address] | | | | | | [phone] | | | | | | | [...] [place] | | | | | | [address] | | | | | | [phone] | | | | | | | | +--------+ + + + + | 02/09/ | Office | Neurology | Dhara, | | | 2020 | Visit | | DWAINE Ross [address] [place], | | | | | | [place] [address] | | | | | | [phone] | | | | | | | | +--------+ + + + + documented as of this encounter Visit Diagnoses Not on filedocumented in this encounter"
--- OUTSIDE RECORDS SUMMARY | ~2019-09-30 | XMS | Encounter Summary ---
Demographics + + + | Address | [address] | | | [place] [address] | + + + | Home Phone [...] Team Providers + +------+ + | Care Plaster Lather Name | Role | Phone | + [...] | Surgery | Acute right | Erika ADO | Orthopedic | | | Required | | ankle pain | [address] | [address] | | | | | Procedures | [place], | [place] | | | | | [place] | [place] [address] | [place], [place] | | | | | | Phone: | [phone] | | | | | | [phone] | Phone: | | | | | | Fax: | [phone] | | | | | | [phone] | Fax: | | | | | | | [phone] | + + + + + + [...] Essential | | 2019 | Visit | [facility] | DO [address] | hypertension | | | | MEDICAL CLINIC [address] | [place] [address] | (Primary Dx); | | | | [address] [place], | [phone] | Environmental | | | | [place] [address] | | allergies; Acute | | | | [phone] | | recurrent frontal | | | [...] diet. She has allergies and is seeing [facility] for allergy shots. She has had sinus [...] | | | | | [place] [address] | | | | | | [phone] | | | | | | | | +--------+ + + + + | 10/30/ | Office | Primary Care | Erika Ernst, | | | 2019 | Visit | | DO [address] | | | | | | [place] [address] | | | | | | [phone] | | | | | | | [...] [place] | | | | | | [address] | | | | | | [phone] | | | | | | | | +--------+ + + + + | 02/09/ | Office | Neurology | Dhara, | | | 2019 | Visit | | DWAINE Ross [address] | | | | | [address] [place], | | | | | | [place] [address] | | | | | | [phone] | | | | | | | [...]
--- OUTSIDE RECORDS SUMMARY | ~2019-09-30 | XMS | Encounter Summary ---
Demographics + + + | Address | [address] | | | [place] [address] | + + + | Home Phone [...] + +------+ + | Care Software Quality Test Engineer Name | Role | Phone [...] Refill | | 2019 | | [facility] | DO [address] | | | | | MEDICAL CLINIC [address] | [place] [address] | | | | | [address] [place], | [phone] | | | | | [place] [address] | | | | | | [phone] | | | +--------+--------+ + + + [...] | | | | | [place] [address] | | | | | | [phone] | | | | | | | | +--------+ + + + + | 10/30/ | Office | Primary Care | Erika Ernst, | | | 2019 | Visit | | DO [address] | | | | | | [place] [address] | | | | | | [phone] | | | | | | | [...] [place] | | | | | | [address] | | | | | | [phone] | | | | | | | | +--------+ + + + + | 02/09/ | Office | Neurology | Dhara, | | | 2020 | Visit | | [address]WAINE Ross [address] | | | | | | [address] [place], | | | | | | [place] [address] | | | | | | [phone] | | | | | | | | +--------+ + + + + documented as of this encounter Visit Diagnoses Not on filedocumented in this encounter"
--- OUTSIDE RECORDS SUMMARY | ~2019-09-30 | XMS | Encounter Summary ---
Demographics + + + | Address | [address] | | | [place] [address] | + + + | Home Phone [...] + +------+ + | Care Contact Center Analyst Name | Role | Phone | + +------+ + PCP | Unavailable | + +------+ + Encounter Details +--------+ + + + + | Date | Type | Department | Care Team | Description | +--------+ + + + + | 04/12/ | Hospital | [place] [facility] | Jenise Benitez, | | | 2016 | Encounter | [facility] | STRUCTURES ENGINEER [address] | | | | | [place] | [place] [address] | | | | | [place], [place] | [phone] | | | | | [address] | | | | | | [phone] | | | +--------+ + + + [...] | | | | | [place] [address] | | | | | | [phone] | | | | | | | | +--------+ + + + + | 10/30/ | Office | Primary Care | Erika Ernst, | | | 2019 | Visit | | DO [address] [place] | | | | | | [place] [address] | | | | | | [phone] | | | | | | | [...] [place] | | | | | | [address] | | | | | | [phone] | | | | | | | | +--------+ + + + + | 02/09/ | Office | Neurology | Dhara, | | | 2019 | Visit | | DWAINE Ross [address] | | | | [address] [place], | | | | | | [place] [address] | | | | | | [phone] | | | | | | | [...] cardiopulmonary process. Job | | | No.: [id number] Read By: DAYANA COON MD Released By: [...] acute cardiopulmonary process. | | Job No.: [id number] Read By: DAYANA COON MD Released By: [...] | | | | | |Job No.: [id number] | | | |Read By: DAYANA COON MD | | | |Released By: DAYANA COON MD | |Date: 04/12/2016 18:28 | | | | | + + documented in this encounter Visit Diagnoses Not on filedocumented in this encounter"
--- OUTSIDE RECORDS SUMMARY | ~2019-09-30 | XMS | Encounter Summary ---
Demographics + + + | Address | [address] | | | [place] [address] | + + + | Home Phone [...] Author + + + | Author | Merged With [facility] | | | and [place] | + + + | Organization | Merged With [facility] | | | [...] Team Providers + +------+ + | Care R D Engineer Name | Role | Phone | + +------+ + PCP | Unavailable | + +------+ + Encounter Details +--------+ + + + + | Date | Type | Department | Care Team | Description | +--------+ + + + + | 04/08/ | Hospital | [facility] | Camille Bush | | | 2017 | Encounter | [facility] | MCKENZIE Matt [address] | | | | | [facility] [address] | 4th [facility], | | | | | 4TH [facility], | [place] [address] | | | | | [place] [address] | [phone] | | | | | [phone] | | | +--------+ + + + [...] | | | | | [place] [address] | | | | | | [phone] | | | | | | | | +--------+ + + + + | 10/30/ | Office | Primary Care | Erika Ernst, | | | 2019 | Visit | | DO [address] [place] | | | | | | [place] [address] | | | | | | [phone] | | | | | | | [...] [place] | | | | | | [address] | | | | | | [phone] | | | | | | | | +--------+ + + + + | 02/09/ | Office | Neurology | Dhara, | | | 2020 | Visit | | [address]WA[address] Ross [address] | | | | | [address] [place], | | | | | | [place] [address] | | | | | | [phone] | | | | | | | | +--------+ + + + + documented as of this encounter Visit Diagnoses Not on filedocumented in this encounter"
--- OUTSIDE RECORDS SUMMARY | ~2019-09-30 | XMS | Encounter Summary ---
Demographics + + + | Address | [address] | | | [place] [address] | + + + | Home Phone [...] Team Providers + +------+ + | Care Detention Attendant Name | Role | Phone | + +------+ + | Erika Ernst DO | PCP | | + +------+ + Reason for Visit + + + | Reason | Comments | + + + | Lab Results | Elevated WBC | + + + Encounter Details +--------+---------+ + + + | Date | Type | Department | Care Team | Description | +--------+---------+ + + + | 02/20/ | Office | [place] [facility] | Anastasia Alberto, | Leukocytosis, | | 2019 | Visit | [facility] | GALLEY BOY [address] | unspecified type | | | | MEDICAL CLINIC [address] | [place] [address] | (Primary Dx) | | | | [address] [place], | [phone] | | | | | [place] [address] | | | | | | [phone] | | | +--------+---------+ + + + [...] + + + | Blood Pressure | 128/88 | 02/20/2019 4:02 PM | Large cuff, left | | | | PDT | arm, manual | + + + + + | Pulse | 103 | 02/20/2019 4:02 PM | Reg | | | | PDT | | + + + + + | Temperature | 36.7 C (98.1 F) | 02/20/2019 4:02 PM | | | | | PDT | | + + + + + | Respiratory Rate | 18 | 02/20/2019 4:02 PM | | | | | PDT | | + + + + + | Oxygen Saturation | 100% | 02/20/2019 4:02 PM | RA | | | | PDT | | + + + + + | Inhaled Oxygen | - | - | | | Concentration | | | | + + + + + | Weight | 175 kg (385 lb 12.8 | 02/20/2019 4:02 PM | | | | oz) | PDT | | + + + + + | Height | 177.8 cm (5' 10") | 02/20/2019 4:02 PM | Stated | | | | PDT | | + + + + + | Body Mass Index | 55.36 | 02/20/2019 4:02 PM | | | | | PDT | | + + + + + documented in this encounter Patient Instructions Patient Instructions Anastasia Alberto FNP - 02/20/2019 4:[address] [facility] visit Will repeat CBC and CMP in office today for FU Will call with results when available Keep surgery schedule on hold at this time until cleared Keep appt with Dr Ernst next Electronically signed by DWAINE Alvarado at 4:23 PM PDT documented in this encounter Progress Notes Anastasia Alberto FNP - 02/20/2019 4:00 PM PDTFormatting of this note might be different f rom the original. Patient ID: Andrea Suh is a 28 y.o. year old female Chief Complaint Patient presents with Lab Results Elevated WBC Assessment and Plan: 1. Leukocytosis, unspecified type - CBC with Differential; Future - Comprehensive Metabolic Panel; Future Discussed previous [facility] visit Will repeat CBC and CMP in office today for FU Will call with results when available Keep surgery schedule on hold at this time until cleared Keep appt with Dr Ernst next Subjective: Pt is new to me and here today for recent illness and elevated WBC. Pt reports she was eval uated on 02/12/[address] Noriega - after being seen by [facility]. Pt had elevated WBC when evaluated i [facility]. Pt reports she had being experiencing upper respiratory and has history of asthma. Pt reports she has recently completed antibiotics regimen. Pt reports Dr Noriega was planning to do surgery to his R wrist - but has delayed due to elevated WBC. Pt reports she flew in [facility] this morning and also reports she has been using her inhaler and cough more since this am Allergies Allergen Reactions Latex Rash Lexapro [Escitalopram] Palpitations Oxycodone Anaphylaxis and Shortness Of Breath Deblitane [Norethindrone] Hydrocodone Hives Uncoded Nonscreenable Allergen Other (See Comments) Other reaction(s): Proclivity to C-diff with certain antibiotics Adhesive & Tape Rash Social History Socioeconomic History Marital status: Single [...] file Social History Narrative Not on file Current Outpatient Medications Medication Sig Dispense Refill albuterol-ipratropium (COMBIVENT RESPIMAT) [...] mouth. Once a week Cholecalciferol (VITAMIN D3) 84511 units TABS Take 1 tablet by mouth [...] prior to physical t herapy for TMJ 2 tablet 0 montelukast (SINGULAIR) 10 mg tablet Take 1 tablet by mouth nightly. 30 tablet 11 No current facility-administered medications for this visit. Review of Systems Constitutional: Positive for unexpected weight change. HENT: Negative. Respiratory: Positive for cough and wheezing. Cardiovascular: Negative. Gastrointestinal: Negative. Objective: Vitals: BP 128/88 Comment: Large cuff, left arm, manual | Pulse 103 Comment: Reg | Temp 36.7 C (9 8.1 F) (Oral) | Resp 18 | Ht 1.778 m (5' 10") Comment: Stated | Wt (!) 175 kg (385 lb 12 .8 oz) | LMP 02/18/2019 | SpO2 100% Comment: RA | ? No | BMI 55.36 kg/m Physical Exam Constitutional: She is oriented to person, place, and time. She appears well-developed and well-nourished. HENT: Head: Normocephalic. Cardiovascular: Normal rate and regular rhythm. Pulmonary/Chest: Effort normal. No respiratory distress. She has decreased breath sounds in the right upper field and the left upper field. She has no wheezes. Neurological: She is alert and oriented to person, place, and time. This note was transcribed using voice recognition software; there may be speech recognition errors which escaped detection during proofreading. documented in this encounter Plan of Treatment +--------+ + + + + | Date | Type | Specialty | Care Team | Description | +--------+ + + + + | 10/01/ | Office | Primary Care | Erika Ernst, | | | 2018 | Visit | | DO [address] [place] | | | | | | [place] [address] | | | | | | [phone] | | | | | | | | +--------+ + + + + | 10/30/ | Office | Primary Care | Erika Ernst, | | | 2019 | Visit | | DO [address] [place] | | | | | | [place] [address] | | | | | | [phone] | | | | | | | [...] [place] | | | | | | [address] | | | | | | [phone] | | | | | | | | +--------+ + + + + | 02/09/ | Office | Neurology | Dhara, | | | 2019 | Visit | | DWAINE Ross [address] | | | | | [address] [place], | | | | | | [place] [address] | | | | | | [phone] | | | | | | | | +--------+ + + + + documented as of this encounter Results Comprehensive Metabolic Panel (02/20/2019 4:26 PM PDT) + + + [...] + + + + | K | 3.9 | 3.3 - 4.9 | [place] | | | | | mmol/L | [facility] | | | | | | [facility] | | + + + + + + | Cl | 105 | 95 - 108 mmol/L | [place] | | | | | | [facility] | | | | | | [facility] | | + + + + + + | CO2 | 24 | 23 - 34 mmol/L | [place] [...] + + + + | Glucose | 95 | 70 - 110 mg/dL | [place] | | | | | | [facility] | | | | | | [facility] | | + + + + + + | BUN | 13 | 5 - 26 mg/dL | [place] | | | | | | [facility] | | | | | | [facility] | | + + + + + + | Creatinine | 0.70 | 0.60 - 1.30 | [place] | | | | | mg/dL | [facility] | [facility] | | | | | | [facility] | | + + + + + + | eGFR if not | >60Comment: GLOMERULAR | >=60 | [place] | | | | FILTRATION | mL/min/1.73m2 | [facility] | | | [facility] | RATE,ESTIMATED | | [facility] | | | | mL/min/1.30f9Uzei than | | LABORATORY | | | [...] + + + + | Albumin | 3.4 | 3.0 - 4.5 g/dL | [place] | | | | | | [facility] | | | | | | [facility] | | + + + + + + | Bilirubin | 0.9 | 0.0 - 1.2 mg/dL | [place] | | | Total | | | [facility] | | | | | | [facility] | | + + + + + + | Total | 7.0 | 6.6 - 8.5 g/dL | [place] | | | Protein | | | [facility] | | | | | | LAB[facility]ATORY | | + + + + + + | AST | 20 | 0 - 38 U/L | [place] | | | | | | [facility] | | | | | | [facility] | | + + + + + + | ALT | 28 | 14 - 59 U/L | [place] | | | | | | [facility] | | | | | | [facility] | | + + + + + + | Alkaline | 89 | 46 - 116 U/L | [place] [...] + + + + | Albumin/Nancy | 0.9 | 0.8 - 2.0 | [place] | | | bulin Ratio | | | [facility] | | | | | | [facility] | | + + + + + + | BUN/Creatin | 18.6 | 7.0 - 24.0 | [place] | [...] + + | [facility] [facility] | [address] | [place] [address] | [phone] | | [facility]PITAL [facility] | | | | + + + + + documented in this encounter Visit Diagnoses + + | Diagnosis | + + | Leukocytosis, unspecified type - Primary | + + documented in this encounter
--- OUTSIDE RECORDS SUMMARY | ~2019-09-30 | XMS | Encounter Summary ---
Demographics + + + | Address | [address] | | | [place] [address] | + + + | Home Phone [...] Providers + +------+ + | Care Production Administrator Name | Role | Phone | [...] | | | | s (de | [place], [place] | [place] [address] | | | | | quervain) | [address] | Phone: | | | | | Pain in | Phone: | [phone] | | | | | right wrist | [phone] | Fax: | | | | | Procedures | Fax: | [phone] | | | | | OT TREAT | [phone] | | +--------+--------+ + + + + [...] | | [address] [place] | [place] [address] | (Primary Dx); Right | | | | [place], [place] | [phone] | wrist pain | | | | [address] | | | | | | [phone] | [facility] | | +--------+ [...] | 19 | 9 | | [id number]) | | | | | | | [...] Ordering Physician: Jeffrey Gandhi MD Claim #: [id number] Date of Injury: 07/20/2018 Visits since the [...] Deviation: 28 Strength at last Assessment eft Metal Loader Strength L district plant superintendent trial average: 54.33 lbs L Three Jaw payam average: 11.33 lbs L Lateral pinch trial average: 16.83 lbs Right district plant superintendent Strength R district plant superintendent trial average: 24.33 lbs R three jaw payam average: 8.33 lbs R lateral pinch trial average: 10.33 lbs Current Strength Strength: Left Hand Strength - Metal Loader (lbs) L Metal Loader Trial 1: 40 L Metal Loader Trial 2: 46 L Metal Loader Trial 3: 55 L Metal Loader Trial Average: 47 L Three Jaw Payam Trial 1: 12 L Three Jaw Payam Trial 2: 13 L Three Jaw Payam Trial 3: 11 L Three Jaw Payam Trial Average: 12 L Lateral Pinch Trial 1: 17 L Lateral Pinch Trial 2: 17 L Lateral Pinch Trial 3: 18 L Lateral Pinch Trial Average: 17.33 Right Hand Strength - Metal Loader (lbs) R Metal Loader Trial 1: 20 R Metal Loader Trial 2: 25 R Metal Loader Trial 3: 32 R Metal Loader Trial Average: 25.67 R Three Jaw Payam [...] 10/30/2018 Certification To: 01/22/2019 Treatment Plan/Interventions OT [id number] - Therapeutic Ardxhrif45470 - Therapeutic Prwjjswuvj45692 - Self Care/Ho me Bmydmnbwfu21240 - Manual Bggmtji36925 - Orthotic/Prosthetic Bkbytkeo19970 - Jrlxslrdfw090 34 - Contrast Nqao53745 - Paraffin BathSplinting Moist heat, cold therapy [...] wrist but continues to have right wrist, district plant superintendent and pinch weakness and significant pain (3 [...] in 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, and district plant superintendent and pinch weakness in the right hand [...] Padgett OT - 10/30/2018 4:56 PM PST [facility] [address] [place] [address] Occupational Therapy Progress Assessment Date: 10/30/2018 Patient [...] jar: 4 - Severe Difficulty Do heavy surveillance sensor officer: 4 - Severe Difficulty Carry a shopping [...] Deviation: 28 Strength: Left Hand Strength - Metal Loader (lbs) L Metal Loader Trial 1: 40 L Metal Loader Trial 2: 46 L Metal Loader Trial 3: 55 L Metal Loader Trial Average: 47 L Three Jaw Payam Trial 1: 12 L Three Jaw Payam Trial 2: 13 L Three Jaw Payam Trial 3: 11 L Three Jaw Payam Trial Average: 12 L Lateral Pinch Trial 1: 17 L Lateral Pinch Trial 2: 17 L Lateral Pinch Trial 3: 18 L Lateral Pinch Trial Average: 17.33 Right Hand Strength - Metal Loader (lbs) R Metal Loader Trial 1: 20 R Metal Loader Trial 2: 25 R Metal Loader Trial 3: 32 R Metal Loader Trial Average: 25.67 R Three Jaw Payam [...] wrist but continues to have right wrist, district plant superintendent and pinch weakness and significant pain (3 [...] in 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, and district plant superintendent and pinch weakness in the right hand [...] Goal 2: The pt will have right district plant superintendent strength of 50 lbs by discharge Goal 2 Status: PARTIALLY MET - Right district plant superintendent has increased from 20 to 26 lbs since evaluaiton. Left district plant superintendent is 47 lbs Goal 3: The pt will have increased right pinch strength to 13 lbs by discharge Goal 3 Status: PARTIALLY MET - right pinch is 9 lbs, left is 15 lbs Goal 4: The pt will be independent and compliant with HEP Goal 4 Status: ONGOING - pt reports daily compliance with HEP which includes wrist, district plant superintendent an d pinch strengthening as well as general UE strengthening Plan Date of Onset: 07/20/2018 Start of Care Date: 08/07/2018 Requested # of Visits: 24 visits 2x/week for 12 weeks Certification From: 10/30/2018 Certification To: 01/22/2019 Treatment Plan/Interventions OT Grbftzzxxv00008 - Therapeutic Nnzthogn05243 - Therapeutic Hfrvnbrqwp61476 - Self Care/Ho me Kifdcuwvft80319 - Manual Swoykuv28872 - Orthotic/Prosthetic Mwwmgbar54660 - Nhsbyckptp832 34 - Contrast Tpjl07137 - Paraffin BathSplinting Moist heat, cold therapy [...] | | | | | [place] [address] | | | | | | [phone] | | | | | | | | +--------+ + + + + | 10/30/ | Office | Primary Care | Erika Ernst, | | | 2019 | Visit | | DO [address] | | | | | | [place] [address] | | | | | | [phone] | | | | | | | [...] [place] | | | | | | [address] | | | | | | [phone] | | | | | | | | +--------+ + + + + | 02/09/ | Office | Neurology | Dhara, | | | 2019 | Visit | | [address]WA[address] Ross [address] | | | | [address] [place], | | | | | | [place] [address] | | | | | | [phone] | | | | | | | | +--------+ + + + + documented as of this encounter Visit Diagnoses + + | Diagnosis | + + | Radial styloid tenosynovitis - Primary | + + | Right wrist pain Pain in joint, forearm | + + documented in this encounter
--- OUTSIDE RECORDS SUMMARY | ~2019-09-30 | XMS | Encounter Summary ---
Demographics + + + | Address | [address] | | | [place] [address] | + + + | Home Phone [...] Team Providers + +------+ + | Care Book Agent Name | Role | Phone | + +------+ + | Erika Ernst DO | PCP | | + +------+ + Reason for Visit +---------+ + | Reason | Comments | +---------+ + | Results | WBC Count | +---------+ + Encounter Details +--------+ + + + + | Date | Type | Department | Care Team | Description | +--------+ + + + + | 02/13/ | Telephone | [place] [facility] | Inocencio Noriega | Results (WBC Count) | | 2019 | | [facility] | MD [address] | | | | | [address] [place] | [address] [place] | | | | | [place], [place] | [place] [address] | | | | | [address] | [phone] | | | | | [phone] | | | +--------+ + + + [...] | | | | | [place] [address] | | | | | | [phone] | | | | | | | | +--------+ + + + + | 10/30/ | Office | Primary Care | Erika Ernst, | | | 2019 | Visit | | DO [address] | | | | | | [place] [address] | | | | | | [phone] | | | | | | | [...] [place] | | | | | | [address] | | | | | | [phone] | | | | | | | | +--------+ + + + + | 02/09/ | Office | Neurology | Dhara, | | | 2020 | Visit | | DWAINE Ross [address] | | | | [address] [place], | | | | | | [place] [address] | | | | | | [phone] | | | | | | | | +--------+ + + + + documented as of this encounter Visit Diagnoses Not on filedocumented in this encounter"
--- OUTSIDE RECORDS SUMMARY | ~2019-09-30 | XMS | Encounter Summary ---
Demographics + + + | Address | [address] | | | [place] [address] | + + + | Home Phone [...] Team Providers + +------+ + | Care Compensation Specialist Name | Role | Phone | + +------+ + PCP | Unavailable | + +------+ + Encounter Details +--------+ + + + + | Date | Type | Department | Care Team | Description | +--------+ + + + + | 10/12/ | [facility] | [facility] | Erika Ernst, | | | 2017 | Encounter | [facility] | DO [address] | | | | | MEDICAL [facility] [address] | [facility] [place] [place] [place] [address] | | | | | [address] [place], | [phone] | | | | | [place] [address] | | | | | | [phone] | | | +--------+ + + + [...] Care | Erika Enrst, | | | 2018 | Visit | | DO [address] | | | | | | [place] [address] | | | | | | [phone] | | | | | | | | +--------+ + + + + | 10/30/ | Office | Primary Care | Erika Ernst, | | | 2019 | Visit | | DO [address] [place] | | | | | | [place] [address] | | | | | | [phone] | | | | | | | [...] [place] | | | | | | [address] | | | | | | [phone] | | | | | | | | +--------+ + + + + | 02/09/ | Office | Neurology | Dhara, | | | 2020 | Visit | | DWAINE Ross [address] | | [address] [place], | | | | | | [place] [address] | | | | | | [phone] | | | | | | | | +--------+ + + + + documented as of this encounter Visit Diagnoses Not on filedocumented in this encounter"
--- OUTSIDE RECORDS SUMMARY | ~2019-09-30 | XMS | Encounter Summary ---
Demographics + + + | Address | [address] | | | [place] [address] | + + + | Home Phone [...] Team Providers + +------+ + | Care Executive Administrative Assistant Name | Role | Phone | + +------+ + | Erika Ernst DO | PCP | | + +------+ + Reason for Visit + + + | Reason | Comments | + + + | Diplopia | | + + + Encounter Details +--------+ + + + + | Date | Type | Department | Care Team | Description | +--------+ + + + + | 08/15/ | Telephone | [facility] [facility] | KleverErika epps, | Diplopia | | 2017 | | [facility] | DO [address] | | | | | MEDICAL CLIN[facility] [address] | [place] [address] | | | | | [address] [place], | [phone] | | | | | [place] [address] | | | | | | [phone] | | | +--------+ + + + [...] | | | | | [place] [address] | | | | | | [phone] | | | | | | | | +--------+ + + + + | 10/30/ | Office | Primary Care | Erika Ernst, | | | 2019 | Visit | | DO [address] [place] | | | | | | [place] [address] | | | | | | [phone] | | | | | | | | +--------+ + + + + | 11/07/ | Appointment | Nutrition | Jaenl Webster | | | 2019 | | | [facility] | | +--------+ + + + + | 11/28/ | Office | Otolaryngology | Anthony Alvarado MD | | | 2019 | Visit | | [address] | | | | | | [place], [place] | | | | | | [address] | | | | | | [phone] | | | | | | | | +--------+ + + + + | 02/09/ | Office | Neurology | Dhara, | | | 2019 | Visit | | [address]WA[address] Ross [address] | | | | [address] [place], | | | | | | [place] [address] | | | | | | [phone] | | | | | | | | +--------+ + + + + documented as of this encounter Visit Diagnoses Not on filedocumented in this encounter"
--- OUTSIDE RECORDS SUMMARY | ~2019-09-30 | XMS | Encounter Summary ---
Demographics + + + | Address | [address] | | | [place] [address] | + + + | Home Phone [...] Team Providers + +------+ + | Care Knife Cutter Name | Role | Phone | + +------+ + PCP | Unavailable | + +------+ + Encounter Details +--------+ + + + + | Date | Type | Department | Care Team | Description | +--------+ + + + + | 06/22/ | Hospital | [facility] [facility] | Conversion | | | 2011 | Encounter | [facility] X[facility] [address] | Transaction, | | | | | [address] [place] | Provider Unknown | | | | | [place] | | | | | | [address] | (Fax) | | | | | [phone] | | | +--------+ + + + [...] 2018 | Visit | | DO [address] [facility] | | | | | | [place] [address] | | | | | | [phone] | | | | | | | | +--------+ + + + + | 10/30/ | Office | Primary Care | Erika Ernst, | | | 2019 | Visit | | DO [address] | | | | | | [place] [address] | | | | | | [phone] | | | | | | | [...] [place] | | | | | | [address] | | | | | | [phone] | | | | | | | | +--------+ + + + + | 02/09/ | Office | Neurology | Dhara, | | | 2020 | Visit | | [address] | | | | | [address] [place], | | | | | | [place] [address] | | | | | | [phone] | | | | | | | | +--------+ + + + + documented as of this encounter Visit Diagnoses Not on filedocumented in this encounter"
--- OUTSIDE RECORDS SUMMARY | ~2019-09-30 | XMS | Encounter Summary ---
Demographics + + + | Address | [address] | | | [place] [address] | + + + | Home Phone [...] Team Providers + +------+ + | Care Rib Chopper Name | Role | Phone | + +------+ + PCP | Unavailable | + +------+ + Encounter Details +--------+ + + + + | Date | Type | Department | Care Team | Description | +--------+ + + + + | 03/07/ | [facility] | Heike Rodriguez, | | | 2016 | Encounter | HOSPITAL EM[facility]GENCY | PSYCHOLOGY DEPARTMENT CHAIR [address] | | | | | CENTER [address] | [place] | | | | | [place] | [address] | | | | | [address] | | | | | | [phone] | | | +--------+ + + + [...] | | | | | [place] [address] | | | | | | [phone] | | | | | | | | +--------+ + + + + | 10/30/ | Office | Primary Care | Erika Ernst, | | | 2019 | Visit | | DO [address] | | | | | | [place] [address] | | | | | | [phone] | | | | | | | [...] [place] | | | | | | [address] | | | | | | [phone] | | | | | | | | +--------+ + + + + | 02/09/ | Office | Neurology | Dhara, | | | 2019 | Visit | | [address] | | | | | | [address] [place], | | | | | | [place] [address] | | | | | | [phone] | | | | | | | | +--------+ + + + + documented as of this encounter Procedures + +--------+ + + + | Procedure Name | Priori | Date/Time | Associated Diagnosis | Comments | | | ty | | | | + +--------+ + + + | XR FOOT RIGHT 3 + VW | Routin | 03/07/2016 | | Results for this | | | e | 6:38 PM | | procedure are in the | | | | PDT | | results section. | + +--------+ + + + documented in this encounter Results XR Foot Right 3 + Vw (03/07/2016 6:38 PM PDT) + + | Specimen | + + | | + + + + + | Narrative | Performed At | + + + | ORIGINAL FOOT, THREE VIEW, RIGHT: CLINICAL STATEMENT: | | | Much increased pain at surgical site. COMPARISON: Right foot | | | 01/22/2015, 04/06/2014. REPORT: Previously ossicle was noted near | | | the medial margin of the navicular. This finding is no longer | | | evident. No acute bony finding is identified. No lytic or blastic | | | bone lesions are seen. The joint spaces are maintained. | | | IMPRESSION: Apparent interval removal of an ossicle at the medial mid | | | foot adjacent to the navicular. No acute bony finding is identified. | | | If there is concern for cellulitis and/or osteomyelitis, MRI | | | recommended. Read By: | | | ANJELICA CHAMBERS MD Released By: ANJELICA CHAMBERS MD Date: | | | 03/08/2016 20:30 | | + + + + + | Procedure Note | + + | Mitchel, Rad Results In - 08/09/2017 10:42 PM PST ORIGINAL FOOT, THREE VIEW, RIGHT: | | CLINICAL STATEMENT:Much increased pain at surgical site. COMPARISON:Right foot | | 01/22/2015, 04/06/2014. REPORT:Previously ossicle was noted near the medial margin of | | the navicular. This finding is no longer evident. No acute bony finding is identified. | | No lytic or blastic bone lesions are seen. The joint spaces are maintained. | | IMPRESSION:Apparent interval removal of an ossicle at the medial mid foot adjacent to | | the navicular. No acute bony finding is identified. If there is concern for cellulitis | | and/or osteomyelitis, MRI recommended. Job#: [id number] Read By: ANJELICA | | Oliver CHAMBERS MD Released By: ANJELICA CHAMBERS MDDate: 03/08/2016 20:30 | |Right foot 01/22/2015, 04/06/2014. | | | |REPORT: | |Previously ossicle was noted near the medial margin of the navicular. This finding is no l onger evident. No acute bony finding is identified. No lytic or blastic bone lesions are s een. The joint spaces are maintained. | | | |IMPRESSION: | |Apparent interval removal of an ossicle at the medial mid foot adjacent to the navicular. N o acute bony finding is identified. If there is concern for cellulitis and/or osteomyelitis , MRI recommended. | | | | | | | | | | | | | | | |Read By: ANJELICA CHAMBERS MD | | | |Released By: ANJELICA CHAMBERS MD | |Date: 03/08/2016 20:30 | | | | | + + documented in this encounter Visit Diagnoses Not on filedocumented in this encounter"
--- OUTSIDE RECORDS SUMMARY | ~2019-09-30 | XMS | Encounter Summary ---
Demographics + + + | Address | [address] | | | [place] [address] | + + + | Home Phone [...] Team Providers + +------+ + | Care Seed Cleaning Machine Operator Name | Role | Phone [...] | [facility] | [place] [address] | | | | | [address] [place], | [phone] | | | | | [place] [address] | | | | | | [phone] | | | +--------+ + + + [...] | | | | | [place] [address] | | | | | | [phone] | | | | | | | | +--------+ + + + + | 10/30/ | Office | Primary Care | Erika Ernst, | | | 2019 | Visit | | DO [address] [place] [address] | | | | | | [place] [address] | | | | | | [phone] | | | | | | | [...] [place] | | | | | | [address] | | | | | | [phone] | | | | | | | | +--------+ + + + + | 02/09/ | Office | Neurology | Dhara, | | | 2019 | Visit | | [address] | | | | | [address] [place], | | | | | | [place] [address] | | | | | | [phone] | | | | | | | | +--------+ + + + + documented as of this encounter Visit Diagnoses Not on filedocumented in this encounter"
--- OUTSIDE RECORDS SUMMARY | ~2019-09-30 | XMS | Encounter Summary ---
Demographics + + + | Address | [address] | | | [place] [address] | + + + | Home Phone [...] Providers + +------+ + | Care Customer Service Advisor Name | Role | Phone | + [...] | [facility] [address] | [place] [address] | | | | | [address] [place], | [phone] | | | | | [place] [address] | | | | | | [phone] | | | +--------+ + + + [...] | | | | | [place] [address] | | | | | | [phone] | | | | | | | | +--------+ + + + + | 10/30/ | Office | Primary Care | Erika Ernst, | | | 2019 | Visit | | DO [address] [place] [address] | | | | | | [place] [address] | | | | | | [phone] | | | | | | | [...] [place] | | | | | | [address] | | | | | | [phone] | | | | | | | | +--------+ + + + + | 02/09/ | Office | Neurology | Dhara, | | | 2019 | Visit | | [address]WA[address] | | | | [address] [place], | | | | | | [place] [address] | | | | | | [phone] | | | | | | | | +--------+ + + + + documented as of this encounter Visit Diagnoses Not on filedocumented in this encounter"
--- OUTSIDE RECORDS SUMMARY | ~2019-09-30 | XMS | Encounter Summary ---
Demographics + + + | Address | [address] | | | [place] [address] | + + + | Home Phone [...] Providers + +------+ + | Care Executive Services Administrator Name | Role | Phone | + +------+ + | Erika Ernst DO | PCP | | + +------+ + Reason for Visit + + + | Reason | Comments | + + + | Therapy Discharge | | + + + Evaluate & [...] | | | PT TREAT | [place] [address] | [place] [address] | | | | | | Phone: | Phone: | | | | | | [phone] | [phone] | | | | | | Fax: | Fax: | | | | | | [phone] | [phone] | +--------+--------+ + + + + Encounter Details +--------+ + + + + | Date | Type | Department | Care Team | Description | +--------+ + + + + | 01/23/ | Hospital | [place] [facility] | Erika Ernst, | Acute pain of right | | 2019 | Encounter | HOSPITAL THERAPY PT | DO [address] | knee (Primary Dx); | | | | [address] [place] | [place] [address] | History of falling; | | | | [place], [place] | [phone] | Sprain of | | | | [address] | | calcaneofibular | | | | [phone] | Julia Fisher, | ligament of left | | | | | PT | ankle, subsequent | | | | | | encounter; Class 3 | | | | | [...] | 11/26/19 | | | (VITAMIN D3) 24542 | mouth Once a week | tablet [...] tablet by | 30 | 0 | 01/24/20 | | | 50 mg tablet | mouth every 6 hours | tablet | | 19 | 9 | | | as needed for up to | | | | | | | 7 days. | | | | | [...] as of this encounter Progress Notes Julia Fisher PT - 01/23/2019 9:19 AM PDT [facility] PT [address] [place] [address] Physical Therapy Progress Assessment Date: 01/23/2019 Patient Information Patient Name: Andrea Suh Date of : 1990 Age: 28 y.o. Encounter Diagnoses Code Name Primary? M25.561 Acute pain of right knee Yes Z91.81 History of falling S93.412D Sprain of calcaneofibular ligament of left ankle, subsequent encounter E66.01, Z68.43 Class 3 severe obesity due to excess calories without serious comorbidit y with body mass index (BMI) of 50.0 to 59.9 in adult (HCC) Date of Onset: 10/15/2018 Referring Provider: Erika Ernst DO Objective Pain Assessment: Location: L hip Pain/Comfort Presence Of Pain: complains of pain/discomfort Standardized Tests: Lower Extremity Functional Scale (LEFS) Any of your usual work, housework or school activities: 4 - No difficulty Your usual hobbies, recreational or sporting activities: 2 - Moderate difficulty Getting into or out of the bath: 4 - No difficulty Walking between rooms: 4 - No difficulty Putting on your shoes or socks: 4 - No difficulty Squattin - A little bit of difficulty Lifting an object, like a bag of groceries from the floor: 4 - No difficulty Performing light activities around your home: 4 - No difficulty Performing heavy activities around your home: 4 - No difficulty Getting into or out of a car: 4 - No difficulty Walking 2 blocks: 4 - No difficulty Walking a mile: 2 - Moderate difficulty Going up or down 10 stairs (about 1 flight of stairs): 2 - Moderate difficulty Standing for 1 hour: 4 - No difficulty Sitting for 1 hour: 4 - No difficulty Running on even ground: 4 - No difficulty Running on uneven ground: 4 - No difficulty Making sharp turns while running fast: 4 - No difficulty Hoppin - No difficulty Rolling over in bed: 4 - No difficulty Lower Extremity Functional Scale Score (Calculated): 73 Strength: LE Manual Muscle Testing (MMT) Gross strength R LE: 5/5 normal, right Gross strength L LE: (limited due to pain) Strength Gross strength R LE: 5/5 normal, right Gross strength L LE: (limited due to pain) Today's Treatment Patient Name: Andrea Suh/: 1990/ Start Time: 829 Stop time: 901 Duration: 32 minutes Timed Treatment Codes: 32 minutes # of PT Visits: 5 Visit Summary: S: Pt states since last Monday her L hip started huring more and she has bee n feeling pain from her hip/LB and down into the back of her knee. She took a break with her clamshell exercises but has kept up the rest. Stretching has not helped. Walking seems to a ggravate it. Pt states pain does not travel past the knee, no numbness or tingling. Does rep ort inc'd heel/ankle pain over past 1.5 weeks that started before the hip pain. A: Please se e discharge summary Next Visit Information: Discharge Therapy Interventions HEP: HEP: SLR in supine, sidelying, prone; sidelying clams; sitting HS curl with blue thera band; SLS. Seated marching 1minx2. LAQ Ongoing: Wall sits [id number] holds, Bridging 3 x 10 reps, Side steps GTB at ankles 3 x 30. PT Interventions: Manual Therapy Intervention #1, Intervention #1 PT INTERVENTION 1: TE (5min) Verbal review of HEP. Instruction in seated piriformis stretch , self STM to L hip with tennis ball. PT MANUAL THERAPY 1: MT (27min) Assessment of L hip. STM/MFR to L gluteals/piriformis. shor t axis distraction to L hip. Overstretch to same. Assessment Discharge summary 01/23/19: Patient has been seen for 5 visits focusing on improving functional hip strength and improv ing body mechanics with squats in order to reduce risk of reinjury to knees. She has made go od progress with being indep with her home exercise program and met all goals as it pertains to her knee. She recently reported increased L gluteal and hip pain that travels down the b ack of her thigh and stops at the knee. She reports this occurred starting last Monday and w as preceded by increased L ankle/heel pain and swelling. Cursory assessment shows increased TTP throughout L gluteals and piriformis, mild TTP L SIJ, (+) piriformis test, negative SLR. Gait remains similar to that at evaluation with exception of slight increased antalgia on t he left. Given that patient has met her goals as established for this plan of care, and her left gluteal/hip pain does not appear directly correlated with her referring diagnosis, we a re discharging her from this case. Educated patient to continue with strengthening, gentle s tretching, and self-STM techniques and monitor her new symptoms. If symptoms continue to wor sen or do not appear to be improving, advised patient to follow-up with PCP. Pt in agreement with plan. Initial Evaluation 12/13/18: Patient is a 28 y/o female who presents to clinic with primary c/o R knee pain occurring after falling on that side a few months ago. Pt reports overall im proved pain and mobility since incident but she wanted to follow up with evaluation to see i f she could do anything to strengthen. Today's assessment reveals negative ligament/joint te sting with most significant observation being decreased strength to bilateral hip musculatur e and poor body mechanics with a functional squat. Patient would primarily benefit from skil led physical therapy to appropriately implement a strengthening home program to improve lowe r extremity functional stability for reduced risk of reinjury. Main factors that may impact POC include recent significant L ankle sprain and obesity. Goals: Patient Reported Outcome Goals Patient Specific Functional Scale Goal 1: Hiking on even and uneven surfaces Patient Specific Functional Scale Goal 1 Status: 5 Patient Specific Functional Scale Goal 1 Status Comment: Not met - limited by ankle not kne e. OP PT Goals OP PT Goals: Goal 1, Goal 2 Goal 1: Patient will demonstrate I with advanced HEP and no pain in order to improve functi onal outcomes with physical therapy. Goal 1 Status: Met - pt compliant Goal 2: Patient will improve B hip strength to 4+/5 or greater Goal 2 Status: Partially met - new pn with L hip resistive testing but grossly 4+/5 R hip p er obs Patient and/or family has indicated understanding of treatment needs and actively participa everardo in the creation of this plan for care. Electronically signed by: Julia Fisher PT, 01/23/2019 9:19 Patient Name: Andrea King Ivetteit/: 1990/ signed by Julia Fisher PT at 01/23/2019 9:23 AM PDTdocumented in this encounter Plan of Treatment +--------+ + + + + | Date | Type | Specialty | Care Team | Description | +--------+ + + + + | 10/01/ | Office | Primary Care | Erika Ernst, | | | 2018 | Visit | | DO [address] | | | | | | [place] [address] | | | | | | [phone] | | | | | | | | +--------+ + + + + | 10/30/ | Office | Primary Care | Erika Ernst, | | | 2019 | Visit | | DO [address] | | | | | | [place] [address] | | | | | | [phone] | | | | | | | [...] [place] | | | | | | [address] | | | | | | [phone] | | | | | | | | +--------+ + + + + | 02/09/ | Office | Neurology | Dhara, | | | 2019 | Visit | | [address] | | | | | [address] [place], | | | | | | [place] [address] | | | | | | [phone] | | | | | | | | +--------+ + + + + documented as of this encounter Visit Diagnoses + + | Diagnosis | + + | Acute pain of right knee - Primary | + + | History of falling Personal history of fall | + + | Sprain of calcaneofibular ligament of left ankle, subsequent encounter | + + | Class 3 severe obesity due to excess calories without serious comorbidity with body | | mass index (BMI) of 50.0 to 59.9 in adult (HCC) | + + documented in this encounter"
--- OUTSIDE RECORDS SUMMARY | ~2019-09-30 | XMS | Encounter Summary ---
Demographics + + + | Address | [address] | | | [place] [address] | + + + | Home Phone [...] + + + | Author | [facility] | | | and [place] | + + + | Organization | [facility] | | | [...] Team Providers + +------+ + | Care Return To Service Inspector Name | Role | Phone | [...] | +--------+ + + + + | 07/31/ | Telephone | [place] [facility] | Erika Ernst, | Medication Refill | | 2018 | | [facility] | [address] | | | | | [facility] [address] | [facility] [place] [address] | | | | | [address] [place], | [phone] | | | | | [place] [address] | | | | | | [phone] | | | +--------+ + + + [...] | | | | | [place] [address] | | | | | | [phone] | | | | | | | | +--------+ + + + + | 10/30/ | Office | Primary Care | Erika Ernst, | | | 2019 | Visit | | DO [address] | | | | | | [place] [address] | | | | | | [phone] | | | | | | | [...] [place] | | | | | | [address] | | | | | | [phone] | | | | | | | | +--------+ + + + + | 02/09/ | Office | Neurology | Dhara, | | | 2019 | Visit | | [address] | | | | | [address] [place], | | | | | | [place] [address] | | | | | | [phone] | | | | | | | | +--------+ + + + + documented as of this encounter Visit Diagnoses Not on filedocumented in this encounter"
--- OUTSIDE RECORDS SUMMARY | ~2019-09-30 | XMS | Encounter Summary ---
Demographics + + + | Address | [address] | | | [place] [address] | + + + | Home Phone [...] Team Providers + +------+ + | Care Waiter/Waitress Bar Name | Role | Phone | + +------+ + PCP | Unavailable | + +------+ + Encounter Details +--------+ + + + + | Date | Type | Department | Care Team | Description | +--------+ + + + + | 08/26/ | [facility] | Jessica Hoang, | | | 2012 | Encounter | HOSPITAL EMERGENCY | [address] | | | | | C[address] | [place] | | | | | [place] | [address] | | | | | [address] | | | | | | [phone] | | | +--------+ + + + [...] | | | | | [place] [address] | | | | | | [phone] | | | | | | | | +--------+ + + + + | 10/30/ | Office | Primary Care | Erika Ernst, | | | 2019 | Visit | | DO [address] | | | | | | [place] [address] | | | | | | [phone] | | | | | | | [...] [place] | | | | | | [address] | | | | | | [phone] | | | | | | | | +--------+ + + + + | 02/09/ | Office | Neurology | Dhara, | | | 2020 | Visit | | [address] | | | | [address] [place], | | | | | | [place] [address] | | | | | | [phone] | | | | | | | | +--------+ + + + + documented as of this encounter Visit Diagnoses Not on filedocumented in this encounter"
--- OUTSIDE RECORDS SUMMARY | ~2019-09-30 | XMS | Encounter Summary ---
Demographics + + + | Address | [address] | | | [place] [address] | + + + | Home Phone [...] Team Providers + +------+ + | Care Spring Former Machine Name | Role | Phone | [...] | | | 2018 | Support | [facility] | DO [address] | | | | | MEDICAL [facility] [address] | [place] [address] | | | | | [address] [place], | [phone] | | | | | [place] [address] | | | | | | [phone] | | | +--------+ + + + [...] | | | | | [place] [address] | | | | | | [phone] | | | | | | | | +--------+ + + + + | 10/30/ | Office | Primary Care | Erika Ernst, | | | 2019 | Visit | | DO [address] | | | | | | [place] [address] | | | | | | [phone] | | | | | | | [...] [place] | | | | | | [address] | | | | | | [phone] | | | | | | | | +--------+ + + + + | 02/09/ | Office | Neurology | Dhara, | | | 2019 | Visit | | [address] | | | | | | [address] [place], | | | | | | [place] [address] | | | | | | [phone] | | | | | | | | +--------+ + + + + documented as of this encounter Visit Diagnoses Not on filedocumented in this encounter"
--- OUTSIDE RECORDS SUMMARY | ~2019-09-30 | XMS | Encounter Summary ---
Demographics + + + | Address | [address] | | | [place] [address] | + + + | Home Phone [...] Author + + + | Author | [facility] | | | and [place] | + + + | Organization | [facility] | | [...] Team Providers + +------+ + | Care Barber Shop Operator Name | Role | Phone | [...] | [address] [place] | [place] [address] | | | | | [place], [place] | [phone] | | | | | [address] | | | | | | [phone] | | | +--------+ + + + [...] 2019 | Visit | | [address] | | | | | | [place] [address] | | | | | | [phone] | | | | | | | | +--------+ + + + + | 10/30/ | Office | Primary Care | Erika Ernst, | | | 2019 | Visit | | DO [address] | | | | | | [place] [address] | | | | | | [phone] | | | | | | | [...] [place] | | | | | | [address] | | | | | | [phone] | | | | | | | | +--------+ + + + + | 02/09/ | Office | Neurology | Dhara, | | | 2019 | Visit | | [address] | | | | | | [address] [facility], | | | | | | [place] [address] | | | | | | [phone] | | | | | | | [...] of the medial foot. Age appropriate bone payroll examiner al density. | | | |IMPRESSION: [...]
--- OUTSIDE RECORDS SUMMARY | ~2019-09-30 | XMS | Encounter Summary ---
Demographics + + + | Address | [address] | | | [place] [address] | + + + | Home Phone [...] + +------+ + | Care Food Service Technician Name | Role | Phone [...] 07/24/ | Telephone | [place] [facility] | Keith Ernsta Joie, | Results | | 2019 | | [facility] | DO [address] | | | | | MEDICAL [facility] [address] | [place] [address] | | | | | [address] [place], | [phone] | | | | | [place] [address] | | | | | | [phone] | | | +--------+ + + + [...] | | | | | [place] [address] | | | | | | [phone] | | | | | | | | +--------+ + + + + | 10/30/ | Office | Primary Care | Erika Ernst, | | | 2019 | Visit | | DO [address] | | | | | | [place] [address] | | | | | | [phone] | | | | | | | [...] [place] | | | | | | [address] | | | | | | [phone] | | | | | | | | +--------+ + + + + | 02/09/ | Office | Neurology | Dhara, | | | 2020 | Visit | | [address] | | | | | [address] [place], | | | | | | [place] [address] | | | | | | [phone] | | | | | | | | +--------+ + + + + documented as of this encounter Visit Diagnoses Not on filedocumented in this encounter"
--- OUTSIDE RECORDS SUMMARY | ~2019-09-30 | XMS | Encounter Summary ---
Demographics + + + | Address | [address] | | | [place] [address] | + + + | Home Phone [...] Providers + +------+ + | Care Client Relations Representative Name | Role | Phone | [...] | 2018 | | [facility] | RESIDENTIAL SPECIALIST [address] | environmental | | | | CENTER [address] | [place] [address] | allergies (Primary | | | | [place], [place] | [phone] | Dx); Moderate | | | | [address] | | asthma, unspecified | | | | [phone] | | whether complicated, | | | [...] sent through Care Everywhere.Asthma, Control ling Your (Austrian)Allergic Rhinitis (Austrian)Anxiety Disorders, Understanding (Austrian)docu mented in this encounter Medications at Time [...] | 04/12/20 | | | (VITAMIN D3) 94176 | mouth Once a week | tablet [...] | | | | | [place] [address] | | | | | | [phone] | | | | | | | | +--------+ + + + + | 10/30/ | Office | Primary Care | Erika Ernst, | | | 2019 | Visit | | DO [address] [place] | | | | | | [place] [address] | | | | | | [phone] | | | | | | | [...] [place] | | | | | | [address] | | | | | | [phone] | | | | | | | | +--------+ + + + + | 02/09/ | Office | Neurology | Dhara, | | | 2020 | Visit | | DWAINE Ross [address] | | [address] [place], | | | | | | [place] [address] | | | | | | [phone] | | | | | | | [...] | | | 2018 | | | 4:33 | | | [...] C?MRN: | | | | | | [id number] | | | [id number] | | | riteri | | | [...] | | | 30 | | | KRYSTINA | | | | | | MACIE, [...] | | | St. | | | [place] | | | y | | | [...] | | | St. | | | [place] | | | y H. | | [...] | | | [id number] | | | [id number] | | | [id number] | | | [id number] | | | [id number] | | | [id number] | | | [id number] | | | [...]
--- OUTSIDE RECORDS SUMMARY | ~2019-09-30 | XMS | Encounter Summary ---
Demographics + + + | Address | [address] | | | [place] [address] | + + + | Home Phone [...] Team Providers + +------+ + | Care Etched Circuit Processor Name | Role | Phone | + +------+ + | Erika Ernst DO | PCP | | + +------+ + Reason for Visit + + + | Reason | Comments | + + + | Hypertension | Blood pressure follow up | + + + Encounter Details +--------+ + + + + | Date | Type | Department | Care Team | Description | +--------+ + + + + | 09/10/ | Clinical | [place] [facility] | Erika Ernst, | | | 2019 | Support | [facility] | DO [address] | | | | | [facility] | [place] [address] | | | | | [address] [place], | [phone] | | | | | [place] [address] | | | | | | [phone] | | | +--------+ + + + [...] +---------+ + + | Blood Pressure | 138/90 | 09/10/2019 9:23 AM | | | | | PST | | + +---------+ + + | Pulse | 100 | 09/10/2019 9:23 AM | | | | | PST | | + +---------+ + + | Temperature | - | - | | + +---------+ + + | Respiratory Rate | 18 | 09/10/2019 9:23 AM | | | | | PST | | + +---------+ + + | Oxygen Saturation | 98% | 09/10/2019 9:23 AM | | | | | PST [...] + documented in this encounter Progress Notes Eden Brown, JACQUES - 09/10/2019 9:15 AM PSTFormatting of this note might be different f rom the original. Andrea Suh come to the clinic today for a blood pressure check. Vital Signs today were Vitals: 09/10/19 0923 BP: 138/90 Pulse: 100 Resp: 18 Patients current medication list is Current Outpatient [...] PO) Take by mouth. Once a week cyclobenzaprine (FLEXERIL) 10 mg tablet TID prn 30 tablet 2 diclofenac (VOLTAREN) 1% GEL apply 1 gram topically twice a day if needed 100 g 3 diphenhydrAMINE (BENADRYL) 25 MG capsule Take 25 mg by mouth nightly as needed for Itch ing. DULERA 200-5 MCG/ACT inhaler inhale 2 puffs by mouth twice a day 1 ferrous sulfate 325 mg tablet Take 1 tablet by mouth 3 times daily (with meals). 90 tab let 11 fexofenadine-pseudoePHEDrine (JOSÉ ANTONIO-D 24) 180-240 MG per tablet Take 1 tablet by mout h. Fluocinonide 0.1 % CREA apply A SMALL AMOUNT to affected area twice a day 0 fluticasone (FLONASE ALLERGY RELIEF) 50 mcg/nasal spray 1 spray by Nasal route Daily as needed for Allergies. Fluticasone Furoate-Vilanterol (BREO ELLIPTA IN) Inhale into the lungs. guaiFENesin-codeine (ROBITUSSIN AC) 100-10 mg/5 mL liquid Take 5-10 mLs by mouth every 6 hours as needed for Cough. 120 mL 0 levothyroxine (SYNTHROID) 50 mcg tablet Take 50 mcg daily 30 tablet 11 MAGNESIUM CHLORIDE PO Take by mouth. meclizine (ANTIVERT) 12.5 mg tablet take 1 tablet by mouth every 6 hours if needed for dizziness 60 tablet 0 montelukast (SINGULAIR) 10 mg tablet take 1 tablet by mouth every evening 30 tablet 11 prazosin (MINIPRESS) 1 mg capsule Take 1 capsule by mouth nightly. 30 capsule 11 predniSONE (DELTASONE) 20 mg tablet Take 2 tablets by mouth Daily for 5 days. 8 tablet 0 pseudoephedrine-guaiFENesin (MUCINEX D) 60-600 mg per 12 hr tablet Take 1 tablet by codi th 2 times daily. 14 tablet 0 ramipril (ALTACE) 2.5 mg capsule Take 2.5 mg daily with 5mg to equal 7.5 mg dose. 30 ca psule 11 ramipril (ALTACE) 5 mg capsule Take 1 capsule by mouth Daily. 30 capsule 11 SUMAtriptan (IMITREX) 100 mg tablet TAKE ONE TABLET BY MOUTH AT FIRST ONSET OF MIGRAINE SYMPTOMS, MAY REPEAT AFTER 2 HOURS; MAX DOSE 200MG IN 24 HOURS 9 tablet 0 traMADol (ULTRAM) 50 mg tablet Take 50 mg by mouth every 6 hours as needed. UNABLE TO FIND Med Name: nell Zinc 10 MG LOZG No current facility-administered medications on file prior to visit. Eden Brown LPN documented in this encounter Plan of Treatment +--------+ + + + + | Date | Type | Specialty | Care Team | Description | +--------+ + + + + | 10/01/ | Office | Primary Care | Erika Ernst, | | | 2018 | Visit | | DO [address] | | | | | | [place] [address] | | | | | | [phone] | | | | | | | | +--------+ + + + + | 10/30/ | Office | Primary Care | Erika Ernst, | | | 2019 | Visit | | DO [address] [place] | | | | | | [place] [address] | | | | | | [phone] | | | | | | | [...] [place] | | | | | | [address] | | | | | | [phone] | | | | | | | | +--------+ + + + + | 02/09/ | Office | Neurology | Dhara, | | | 2019 | Visit | | DWAINE Ross [address] | | | [address] [place], | | | | | | [place] [address] | | | | | | [phone] | | | | | | | | +--------+ + + + + documented as of this encounter Visit Diagnoses Not on filedocumented in this encounter"
--- OUTSIDE RECORDS SUMMARY | ~2019-09-30 | XMS | Encounter Summary ---
Demographics + + + | Address | [address] | | | [place] [address] | + + + | Home Phone [...] Team Providers + +------+ + | Care Cashier Checker Name | Role | Phone | [...] | [facility] | [place] [address] | | | | | [address] [place], | [phone] | | | | | [place] [address] | | | | | | [phone] | | | +--------+ + + + [...] | | | | | [place] [address] | | | | | | [phone] | | | | | | | | +--------+ + + + + | 10/30/ | Office | Primary Care | Erika Ernst, | | | 2019 | Visit | | DO [address] [place] [address] | | | | | | [place] [address] | | | | | | [phone] | | | | | | | [...] [place] | | | | | | [address] | | | | | | [phone] | | | | | | | | +--------+ + + + + | 02/09/ | Office | Neurology | Dhara, | | | 2019 | Visit | | DWAINE Ross [address] | | | | | [address] [place], | | | | | | [place] [address] | | | | | | [phone] | | | | | | | | +--------+ + + + + documented as of this encounter Visit Diagnoses Not on filedocumented in this encounter"
--- OUTSIDE RECORDS SUMMARY | ~2019-09-30 | XMS | Encounter Summary ---
Demographics + + + | Address | [address] | | | [place] [address] | + + + | Home Phone [...] Providers + +------+ + | Care Medical Physics Professor Name | Role | Phone | + +------+ + | Erika Ernst DO | PCP | | + +------+ + Reason for Visit +--------+ + | Reason | Comments | +--------+ + | Other | Rx picked up | +--------+ + Encounter Details +--------+ + + + + | Date | Type | Department | Care Team | Description | +--------+ + + + + | 01/23/ | Telephone | [facility] [facility] | Emily Mittal DPM | Other (Rx picked up) | | 2019 | | [facility] | [address] [place] | | | | | [address] | [place], [place] | | | | | [place], [place] | [address] | | | | | [address] | | | | | | [phone] | | | +--------+ + + + [...] | Visit | | DO [address] | | | | | | [place] [address] | | | | | | [phone] | | | | | | | | +--------+ + + + + | 10/30/ | Office | Primary Care | Erika Ernst, | | | 2019 | Visit | | DO [address] [facility] [place] | | | | | | [place] [address] | | | | | | [phone] | | | | | | | [...] [place] | | | | | | [address] | | | | | | [phone] | | | | | | | | +--------+ + + + + | 02/09/ | Office | Neurology | Dhara, | | | 2019 | Visit | | DWAINE Ross [address] | | | | | | [address] [place], | | | | | | [place] [address] | | | | | | [phone] | | | | | | | | +--------+ + + + + documented as of this encounter Visit Diagnoses Not on filedocumented in this encounter"
--- OUTSIDE RECORDS SUMMARY | ~2019-09-30 | XMS | Encounter Summary ---
Demographics + + + | Address | [address] | | | [place] [address] | + + + | Home Phone [...] Providers + +------+ + | Care Manager Php Name | Role | Phone | + +------+ + PCP | Unavailable | + +------+ + Encounter Details +--------+ + + + + | Date | Type | Department | Care Team | Description | +--------+ + + + + | 12/17/ | [facility] | [facility] | Erika Ernst, | | | 2016 | Encounter | [facility] | DO [address] | | | | | [facility] [address] | [facility] [place] [address] | | | | | [address] [place], | [phone] | | | | | [place] [address] | | | | | | [phone] | | | +--------+ + + + [...] | | | | | [place] [address] | | | | | | [phone] | | | | | | | | +--------+ + + + + | 10/30/ | Office | Primary Care | Erika Ernst, | | | 2019 | Visit | | DO [address] | | | | | | [place] [address] | | | | | | [phone] | | | | | | | [...] [place] | | | | | | [address] | | | | | | [phone] | | | | | | | | +--------+ + + + + | 02/09/ | Office | Neurology | Dhara, | | | 2020 | Visit | | DWAINE Ross [address] | | | | | | [address] [place], | | | | | | [place] [address] | | | | | | [phone] | | | | | | | | +--------+ + + + + documented as of this encounter Visit Diagnoses Not on filedocumented in this encounter"
--- OUTSIDE RECORDS SUMMARY | ~2019-09-30 | XMS | Encounter Summary ---
Demographics + + + | Address | [address] | | | [place] [address] | + + + | Home Phone [...] Providers + +------+ + | Care Telephone Plant Power Operator Name | Role | Phone | [...] | [facility] [address] | [place] [address] | (Primary Dx); | | | | [address] [place], | [phone] | Acquired | | | | [place] [address] | | hypothyroidism; Iron | | | | [phone] | | deficiency; PTSD | | | [...] | | | | | [place] [address] | | | | | | [phone] | | | | | | | | +--------+ + + + + | 10/30/ | Office | Primary Care | Erika Ernst, | | | 2019 | Visit | | DO [address] [place] | | | | | | [place] [address] | | | | | | [phone] | | | | | | | [...] [place] | | | | | | [address] | | | | | | [phone] | | | | | | | | +--------+ + + + + | 02/09/ | Office | Neurology | Dhara, | | | 2020 | Visit | | DWAINE Ross [address] | | | | | | [address]TH [facility], | | | | | | [place] [address] | | | | | | [phone] | | | | | | | [...]
--- OUTSIDE RECORDS SUMMARY | ~2019-09-30 | XMS | Encounter Summary ---
Demographics + + + | Address | [address] | | | [place] [address] | + + + | Home Phone [...] Team Providers + +------+ + | Care Cco Name | Role | Phone | + +------+ + | Erika Ernst DO | PCP | | + +------+ + Reason for Visit +--------+ + | Reason | Comments | +--------+ + | Other | asthma flare up x 1 week. | +--------+ + Encounter Details +--------+---------+ + + + | Date | Type | Department | Care Team | Description | +--------+---------+ + + + | 02/12/ | Office | [place] [facility] | Catherine Diaz, | Exacerbation of | | 2019 | Visit | [facility] | INDUSTRIAL RELATIONS MANAGER [address] | intermittent asthma, | | | | [facility] [address] | [place] [address] | unspecified asthma | | | | [address] [place], | [phone] | severity (Primary | | | | [place] [address] | | Dx) | | | | [phone] | | | +--------+---------+ + + + [...] + + + | Blood Pressure | - | - | | + + + + + | Pulse | 62 | 02/12/2019 1:35 PM | | | | | PDT | | + + + + + | Temperature | 36.6 C (97.9 F) | 02/12/2019 1:35 PM | | | | | PDT | | + + + + + | Respiratory Rate | 18 | 02/12/2019 1:35 PM | | | | | PDT | | + + + + + | Oxygen Saturation | 100% | 02/12/2019 1:35 PM | | | | | PDT | | + + + + + | Inhaled Oxygen | - | - | | | Concentration | | | | + + + + + | Weight | 171.9 kg (379 lb) | 02/12/2019 1:35 PM | | | | | PDT | | + + + + + | Height | 177.8 cm (5' 10") | 02/12/2019 1:35 PM | | | | | PDT | | + + + + + | Body Mass Index | 54.38 | 02/12/2019 1:35 PM | | | | | PDT | | + + + + + documented in this encounter Patient Instructions Patient Instructions Catherine Diaz FNP - 02/12/2019 12:45 PM PDT Asthma (Adult) Asthma is a disease where the medium and small air passages within the lung go into spasm and restrict the flow of air. Inflammation and swelling of the airways cause further blocka ge. During an acute asthma attack, these factors cause trouble breathing, wheezing, cough an d chest tightness. An asthma attack can be triggered by many things. Common triggers include infections such a s the common cold, bronchitis, and pneumonia. Irritants such as smoke or pollutants in the a ir, very cold air, emotional upset, and exercise can also trigger an attack. Inmany adults with asthma, allergies todust, mold, pollen and animal dander can cause an asthma attack. Skipping doses of daily asthma medicine can also bring on an asthma attack. Asthma can be controlled using theproper medicines prescribed by your healthcare provider and avoiding exposure to known triggers including allergens and irritants. Home care Take prescribed medicine exactly at the times advised. If you need medicine such as from a hand held inhaler or aerosol breathing machine more than every 4 hours, contact your [facility] provider or seek immediate medical attention. If prescribed an antibiotic or predniso ne, take all of the medicine as prescribed, even if you are feeling better after a few days. Don't smoke. Avoid being exposed to the smoke of others. Some people with asthma have worsening of their symptoms when they take aspirin and non- steroidal or fever-reducing medicines like ibuprofen and naproxen. Talk to your healthcare p chandana if you think this may apply to you. Follow-up care Follow up with your healthcare provider, or as advised. Always bring all of your current me dicines to any appointments with your healthcare provider. Also bring a complete list of med icines eventhose not taken for asthma. If you don't already have one, talk to your health are provider about developing your own "Asthma Action Plan." A pneumococcal (pneumonia)vaccine and yearly flu shot (every fall) are recommended. Ask y our doctor about this. When to seek medical advice Call your healthcare provider right away if any of these occur: Increased wheezing or shortness of breath Need to use your inhalers more often than usual without relief Fever of 100.4F (38C) or higher, or as directed by your healthcare provider Coughing up lots of dark-colored or bloody sputum (mucus) Chest pain with each breath If you use a peak flow meter as part of an Asthma Action Plan, and you are still in the yellow zone (50% to 80%) 15 minutes after using inhaler medicine. Call 911 Call 911 if any of the following occur Trouble walking or talking because of shortness of breath If you use a peak flow meter as part of an Asthma Action Plan andyou are still in the red zone (less than 50%) 15 minutes after using inhaler medicine Lips or fingernails turning echevarria or blue Date Last Reviewed: 01/30/201719998100-[address] [employer] [place] [address], [place] [address]. All [facility] ts reserved. This information is not intended as a substitute for professional medical care. Always follow your healthcare professional's instructions. documented in this encounter Progress Notes Catherine Diaz FNP - 02/12/2019 12:45 PM PDTFormatting of this note might be different fro m the original. Assessment & Plan: 1. Exacerbation of intermittent asthma, unspecified asthma severity (Primary) Assessment & Plan: Upon arrival patient is nontoxic in appearance and hemodynamically stable. Breath sounds r evealed decreased air movement to bases without rhonchi or crackles. Some mild inspiratory wheezes noted to upper air palmer. Patient given DuoNeb with additional 2.5 mg of albuterol. Reports improvement in shortness of breath. Will start patient on short course of steroids. Encouraged to use medications as previous ly prescribed and follow-up with PCP if no improvement in symptoms in next 2-4 days Orders: - predniSONE; Take 2 tablets by mouth Daily for 5 days. Dispense: 10 tablet; Refill: 0 - Ipratropium-Albuterol - Albuterol Sulfate Subjective: Chief Complaint Patient presents with Other asthma flare up x 1 week. Patient ID: Andrea Suh is a 28 y.o. female. Patient is a 28-year-old female who presents to walk-in clinic for evaluation. Patient com plains of asthma exacerbation. Reports initial onset approximately 10 days ago. States ravinder t since that time she has had increasing episodes of shortness of breath, productive cough, chest tightness. She reports she is using her rescue inhaler more frequently. Denies any fever, headache, dizziness or abdominal pain. Patient's medications, allergies, past medical, surgical, social and family histories were obtained and reviewed as appropriate. Objective: Pulse 62 | Temp 36.6 C (97.9 F) (Temporal) | Resp 18 | Ht 1.778 m (5' 10") | Wt (!) 171.9 kg (379 lb) | LMP 01/19/2019 (Exact Date) | SpO2 100% | BMI 54.38 kg/m Physical Exam Constitutional: She is oriented to person, place, and time. She appears well-developed and well-nourished. Morbidly obese HENT: Head: Normocephalic. Eyes: Pupils are equal, round, and reactive to light. Pulmonary/Chest: Effort normal. No respiratory distress. Cough noted on exam Neurological: She is alert and oriented to person, place, and time. Nursing note and vitals reviewed. Electronically signed by: DWAINE Chapman, 02/22/2019 18:41 This note was transcribed using voice recognition software; there may be speech recognition errors which escaped detection during review. documented in this en counter Plan of Treatment +--------+ + + + + | Date | Type | Specialty | Care Team | Description | +--------+ + + + + | 10/01/ | Office | Primary Care | Erika Ernst, | | 2018 | Visit | | [address] | | | | | | [facility] [place] [address] | | | | | | [phone] | | | | | | | | +--------+ + + + + | 10/30/ | Office | Primary Care | Erika Ernst, | | | 2019 | Visit | | DO [address] [place] | | | | | | [place] [address] | | | | | | [phone] | | | | | | | [...] | | | | | [place], [place] | | | | | | [address] | | | | | | [phone] | | | | | | | | +--------+ + + + + | 02/09/ | Office | Neurology | Dhara, | | | 2019 | Visit | | DWAINE Ross [address] | | | | | | [address] [place], | | | | | | [place] [address] | | | | | | [phone] | | | | | | | | +--------+ + + + + documented as of this encounter Visit Diagnoses + + | Diagnosis | + + | Exacerbation of intermittent asthma, unspecified asthma severity - Primary | + + documented in this encounter Administered Medications + +--------+ +--------+------+------+ | Medication Order | MAR | Action | Dose | Rate | Site | | | Action | Date | | | | + +--------+ +--------+------+------+ | albuterol 2.5 mg/3 mL nebulizer | Given | 02/13/20 | 2.5 mg | | | | solution 2.5 mg 2.5 mg, | | 19 2:15 | | | | | Nebulization, ONCE, 02/12/19 | | PM PDT | | | | | at 1430, For 1 dose, RT will | | | | | | | administer., | | | | | | + +--------+ +--------+------+------+ +---+---+ | | | +---+---+ + +-------+ +-------+---+---+ | albuterol-ipratropium 2.5-0.5 | Given | 02/13/20 | 3 mLs | | | | mg/3 mL nebulizer solution 3 mL | | 19 2:14 | | | | | 3 mL, Nebulization, ONCE, Tue | | PM PDT | | | | | 02/12/19 at 1430, For 1 dose | | | | | | + +-------+ +-------+---+---+ +---+---+ | | | +---+---+ documented in this encounter
--- OUTSIDE RECORDS SUMMARY | ~2019-09-30 | XMS | Encounter Summary ---
Demographics + + + | Address | [address] | | | [place] [address] | + + + | Home Phone [...] Team Providers + +------+ + | Care Appraiser Name | Role | Phone | + [...] | [place], [place] | [place] [address] | | | | | [address] | [phone] | | | | | [phone] | | | +--------+ + + + [...] | | | | | [place] [address] | | | | | | [phone] | | | | | | | | +--------+ + + + + | 10/30/ | Office | Primary Care | Erika Ernst, | | | 2019 | Visit | | DO [address] | | | | | | [place] [address] | | | | | | [phone] | | | | | | | [...] [place] | | | | | | [address] | | | | | | [phone] | | | | | | | | +--------+ + + + + | 02/09/ | Office | Neurology | Dhara, | | | 2019 | Visit | | DWAINE Ross [address] | | | | | | [address] [place], | | | | | | [place] [address] | | | | | | [phone] | | | | | | | | +--------+ + + + + documented as of this encounter Visit Diagnoses Not on filedocumented in this encounter"
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
--- OUTSIDE RECORDS SUMMARY | ~2019-09-30 | XMS | Encounter Summary ---
Demographics + + + | Address | [address] | | | [place] [address] | + + + | Home Phone [...] Team Providers + +------+ + | Care Bushing And Broach Operator Name | Role | Phone | + +------+ + PCP | Unavailable | + +------+ + Encounter Details +--------+ + + + + | Date | Type | Department | Care Team | Description | +--------+ + + + + | 04/26/ | [facility] | Spenser Roberts NP | | | 2015 | Encounter | [facility] | [address], | | | | | [facility] [address] | [place] [address] | | | | | [address] [facility], | [phone] | | | | | [place] [address] | | | | | | [phone] | | | +--------+ + + + [...] | | | | | [place] [address] | | | | | | [phone] | | | | | | | | +--------+ + + + + | 10/30/ | Office | Primary Care | Erika Ernst, | | | 2019 | Visit | | DO [address] | | | | | | [place] [address] | | | | | | [phone] | | | | | | | [...] [place] | | | | | | [address] | | | | | | [phone] | | | | | | | | +--------+ + + + + | 02/09/ | Office | Neurology | Dhara, | | | 2020 | Visit | | [address] | | | [address] [place], | | | | | | [place] [address] | | | | | | [phone] | | | | | | | | +--------+ + + + + documented as of this encounter Visit Diagnoses Not on filedocumented in this encounter"
--- OUTSIDE RECORDS SUMMARY | ~2019-09-30 | XMS | Encounter Summary ---
Demographics + + + | Address | [address] | | | [place] [address] | + + + | Home Phone [...] Team Providers + +------+ + | Care Certified Home Health Aide Name | Role | Phone | + +------+ + PCP | Unavailable | + +------+ + Encounter Details +--------+ + + + + | Date | Type | Department | Care Team | Description | +--------+ + + + + | 09/21/ | Hospital | [facility] [facility] | Caro Zendejas | | | 2015 | Encounter | [facility] | MCKENZIE Collazo [address] | | | | | [address] | [facility] [place] | | | | | [place], [place] | [address] | | | | | [address] | [phone] | | | | | [phone] | | | +--------+ + + + [...] | | | | | [place] [address] | | | | | | [phone] | | | | | | | | +--------+ + + + + | 10/30/ | Office | Primary Care | Erika Ernst, | | | 2019 | Visit | | DO [address] | | | | | | [place] [address] | | | | | | [phone] | | | | | | | [...] [place] | | | | | | [address] | | | | | | [phone] | | | | | | | | +--------+ + + + + | 02/09/ | Office | Neurology | Dhara, | | | 2020 | Visit | | [address] [place], | | | | | | [place] [address] | | | | | | [phone] | | | | | | | | +--------+ + + + + documented as of this encounter Visit Diagnoses Not on filedocumented in this encounter"
--- OUTSIDE RECORDS SUMMARY | ~2019-09-30 | XMS | Encounter Summary ---
Demographics + + + | Address | [address] | | | [place] [address] | + + + | Home Phone [...] Team Providers + +------+ + | Care Criminal Profiler Name | Role | Phone | + +------+ + PCP | Unavailable | + +------+ + Encounter Details +--------+ + + + + | Date | Type | Department | Care Team | Description | +--------+ + + + + | 09/12/ | [facility] | [facility] | Amaya Varner NP | | | 2016 | Encounter | [facility] | [address] | | | | | [facility] [address] | [place], [place] | | | | | [address] [place], | [address] | | | | | [place] [address] | [phone] | | | | | [phone] | | | +--------+ + + + [...] | | | | | [place] [address] | | | | | | [phone] | | | | | | | | +--------+ + + + + | 10/30/ | Office | Primary Care | Erika Ernst, | | | 2019 | Visit | | DO [address] | | | | | | [place] [address] | | | | | | [phone] | | | | | | | [...] [place] | | | | | | [address] | | | | | | [phone] | | | | | | | | +--------+ + + + + | 02/09/ | Office | Neurology | Dhara, | | | 2019 | Visit | | [address] | [address] [place], | | | | | | [place] [address] | | | | | | [phone] | | | | | | | | +--------+ + + + + documented as of this encounter Visit Diagnoses Not on filedocumented in this encounter"
--- OUTSIDE RECORDS SUMMARY | ~2019-09-30 | XMS | Encounter Summary ---
Demographics + + + | Address | [address] | | | [place] [address] | + + + | Home Phone [...] Providers + +------+ + | Care Human Resources Executive Name | Role | Phone | + [...] | +--------+ + + + + | 04/23/ | Telephone | [facility] [facility] | Erika Ernst, | Medication Refill | | 2018 | | [facility] | [address] | | | | | [facility] [address] | [facility] [place] [address] | | | | | [address] [place], | [phone] | | | | | [place] [address] | | | | | | [phone] | | | +--------+ + + + [...] | | | | | [place] [address] | | | | | | [phone] | | | | | | | | +--------+ + + + + | 10/30/ | Office | Primary Care | Erika Ernst, | | | 2019 | Visit | | DO [address] | | | | | | [place] [address] | | | | | | [phone] | | | | | | | [...] [place] | | | | | | [address] | | | | | | [phone] | | | | | | | | +--------+ + + + + | 02/09/ | Office | Neurology | Dhara, | | | 2019 | Visit | | [address] [place], | | | | | | [place] [address] | | | | | | [phone] | | | | | | | | +--------+ + + + + documented as of this encounter Visit Diagnoses Not on filedocumented in this encounter"
--- OUTSIDE RECORDS SUMMARY | ~2019-09-30 | XMS | Encounter Summary ---
Demographics + + + | Address | [address] | | | [place] [address] | + + + | Home Phone [...] Team Providers + +------+ + | Care Poultry Scalder Name | Role | Phone | + [...] | | | [place] TRE[place] | [place] [address] | [place] [address] | | | | | | Phone: | Phone: | | | | | | [phone] | [phone] | | | | | | Fax: | Fax: | | | | | | [phone] | [phone] | +--------+--------+ + + + + Encounter [...] [address] | [place] [address] | | | | | [place], [place] | [phone] | | | | | [address] | | | | | | [phone] | Celia Washington, PT | | +--------+ [...] | 11/26/19 | | | (VITAMIN D3) 10158 | mouth Once a week | tablet [...] might be different fr om the original. [facility] [address] [place] [address] Physical Therapy Daily Treatment Note Date: 01/09/2019 [...] with blue theraband; SLS. Ongoing: Wall sits [id number] holds, Bridging 3 x 10 reps, Side [...] 4+/5 or greater Electronically signed by: Celia Washington, PT, 01/09/2019 14:50 Patient Name: Andrea Suh/: [...] | | | | | [place] [address] | | | | | | [phone] | | | | | | | | +--------+ + + + + | 10/30/ | Office | Primary Care | Erika Ernst, | | | 2019 | Visit | | DO [address] | | | | | | [place] [address] | | | | | | [phone] | | | | | | | [...] [place] | | | | | | [address] | | | | | | [phone] | | | | | | | | +--------+ + + + + | 02/09/ | Office | Neurology | Dhara, | | | 2019 | Visit | | [address] | | | | | [address] [place], | | | | | | [place] [address] | | | | | | [phone] | | | | | | | | +--------+ + + + + documented as of this encounter Visit Diagnoses + + | Diagnosis | + + | Acute pain of right knee - Primary | + + documented in this encounter"
--- OUTSIDE RECORDS SUMMARY | ~2019-09-30 | XMS | Encounter Summary ---
Demographics + + + | Address | [address] | | | [place] [address] | + + + | Home Phone [...] Team Providers + +------+ + | Care Start Up Specialist Name | Role | Phone | [...] [facility] | DO [address] [place] | | | | | MEDICAL CL[facility] [address] | [place] [address] | | | | | [address] [place], | [phone] | | | | | [place] [address] | | | | | | [phone] | | | +--------+ + + + [...] | | | | | [place] [address] | | | | | | [phone] | | | | | | | | +--------+ + + + + | 10/30/ | Office | Primary Care | Erika Ernst, | | | 2019 | Visit | | DO [address] | | | | | | [place] [address] | | | | | | [phone] | | | | | | | [...] [place] | | | | | | [address] | | | | | | [phone] | | | | | | | | +--------+ + + + + | 02/09/ | Office | Neurology | Dhara, | | | 2019 | Visit | | [address] | [address] [place], | | | | | | [place] [address] | | | | | | [phone] | | | | | | | | +--------+ + + + + documented as of this encounter Visit Diagnoses Not on filedocumented in this encounter"
--- OUTSIDE RECORDS SUMMARY | ~2019-09-30 | XMS | Encounter Summary ---
Demographics + + + | Address | [address] | | | [place] [address] | + + + | Home Phone [...] Team Providers + +------+ + | Care Engineer Station Mainline Name | Role | Phone | + +------+ + PCP | Unavailable | + +------+ + Encounter Details +--------+ + + + + | Date | Type | Department | Care Team | Description | +--------+ + + + + | 06/14/ | [facility] | [facility] | Jenise Benitez, | | | 2016 | Encounter | [facility] | DELIVERY AIDE [address] | | | | | MEDICAL CLINIC [address] | [facility] [place] [place] [address] | | | | | [address] [place], | [phone] | | | | | [place] [address] | | | | | | [phone] | | | +--------+ + + + [...] | | | | | [place] [address] | | | | | | [phone] | | | | | | | | +--------+ + + + + | 10/30/ | Office | Primary Care | Erika Ernst, | | | 2019 | Visit | | DO [address] [place] | | | | | | [place] [address] | | | | | | [phone] | | | | | | | [...] [place] | | | | | | [address] | | | | | | [phone] | | | | | | | | +--------+ + + + + | 02/09/ | Office | Neurology | Dhara, | | | 2019 | Visit | | [address] | | | | | | [address] [place], | | | | | | [place] [address] | | | | | | [phone] | | | | | | | | +--------+ + + + + documented as of this encounter Visit Diagnoses Not on filedocumented in this encounter"
--- OUTSIDE RECORDS SUMMARY | ~2019-09-30 | XMS | Encounter Summary ---
Demographics + + + | Address | [address] | | | [place] [address] | + + + | Home Phone [...] Team Providers + +------+ + | Care Lead Network Engineer Name | Role | Phone | [...] Medication Refill | | 2018 | | [facility] | WELDER SETTER ELECTRON BEAM MACHINE | | | | | MEDICAL CLINIC [address] | | | | | | [address] [place], | | | | | | [place] [address] | | | | | | [phone] | | | +--------+--------+ + + + [...] 2019 | Visit | | DO [address] | | | | | | [place] [address] | | | | | | [phone] | | | | | | | | +--------+ + + + + | 01/29/ | Office | Primary Care | Erika Ernst, | | | 2019 | Visit | | DO [address] [place] | | | | | | [place] [address] | | | | | | [phone] | | | | | | | [...] [place] | | | | | | [address] | | | | | | [phone] | | | | | | | | +--------+ + + + + | 02/09/ | Office | Neurology | Dhara, | | | 2019 | Visit | | [address] | | | | | | [address] [place], | | | | | | [place] [address] | | | | | | [phone] | | | | | | | | +--------+ + + + + documented as of this encounter Visit Diagnoses Not on filedocumented in this encounter"
--- OUTSIDE RECORDS SUMMARY | ~2019-09-30 | XMS | Encounter Summary ---
Demographics + + + | Address | [address] | | | [place] [address] | + + + | Home Phone [...] Team Providers + +------+ + | Care Liturgical Music Director Name | Role | Phone | + +------+ + PCP | Unavailable | + +------+ + Encounter Details +--------+ + + + + | Date | Type | Department | Care Team | Description | +--------+ + + + + | [facility] Denise Mcgregor | | | [facility] | Encounter | [facility] | G, OIL SEPARATOR [address] | | | | | MEDICAL CLINIC [address] | [facility] [place] | | | | [facility] [address] [facility] | [address] | | | | | [place] [address] | [phone] | | | | | [phone] | | | +--------+ + + + [...] | | | | | [place] [address] | | | | | | [phone] | | | | | | | | +--------+ + + + + | 10/30/ | Office | Primary Care | Erika Ernst, | | | 2019 | Visit | | DO [address] [place] | | | | | | [place] [address] | | | | | | [phone] | | | | | | | [...] [place] | | | | | | [address] | | | | | | [phone] | | | | | | | | +--------+ + + + + | 02/09/ | Office | Neurology | Dhara, | | | 2019 | Visit | | [address] | | | | | [address] [place], | | | | | | [place] [address] | | | | | | [phone] | | | | | | | | +--------+ + + + + documented as of this encounter Visit Diagnoses Not on filedocumented in this encounter"
--- OUTSIDE RECORDS SUMMARY | ~2019-09-30 | XMS | Encounter Summary ---
Demographics + + + | Address | [address] | | | [place] [address] | + + + | Home Phone [...] Providers + +------+ + | Care Senior Information Security Architect Name | Role | Phone | [...] | | MEDICAL CLINIC [address] | [facility] [place] [address] | | | | | [address] [place], | [phone] | | | | | [place] [address] | | | | | | [phone] | | | +--------+ + + + [...] | Visit | | DO [address] | | | | | | [place] [address] | | | | | | [phone] | | | | | | | | +--------+ + + + + | 10/30/ | Office | Primary Care | Erika Ernst, | | | 2019 | Visit | | DO [address] [facility] [place] | | | | | | [place] [address] | | | | | | [phone] | | | | | | | [...] [place] | | | | | | [address] | | | | | | [phone] | | | | | | | | +--------+ + + + + | 02/09/ | Office | Neurology | Dhara, | | | 2019 | Visit | | [address] | | | | | | [address] [place], | | | | | | [place] [address] | | | | | | [phone] | | | | | | | | +--------+ + + + + documented as of this encounter Visit Diagnoses Not on filedocumented in this encounter"
--- OUTSIDE RECORDS SUMMARY | ~2019-09-30 | XMS | Encounter Summary ---
Demographics + + + | Address | [address] | | | [place] [address] | + + + | Home Phone [...] Team Providers + +------+ + | Care Bird Raiser Name | Role | Phone | + [...] Leukocytosis, | | 2019 | Visit | [facility] | MAILROOM COURIER [address] | unspecified type | | | | MEDICAL CLINIC [address] | [place] [address] | (Primary Dx) | | | | [address] [place], | [phone] | | | | | [place] [address] | | | | | | [phone] | | | +--------+---------+ + + + [...] FNP - 02/20/2019 4:00 PM PDTDiscussed previous [facility] visit Will repeat CBC and CMP in [...] - Comprehensive Metabolic Panel; Future Discussed previous [facility] visit Will repeat CBC and CMP in [...] Dr Noriega - after being seen by [facility]. Pt had elevated WBC when evaluated i [facility]. Pt reports she had being experiencing upper respiratory and has history of asthma. Pt reports she has recently completed antibiotics regimen. Pt reports Dr Noriega was planning to do surgery to his R wrist - but has delayed due to elevated WBC. Pt reports she flew in [facility] this morning and also reports she has [...] mouth. Once a week Cholecalciferol (VITAMIN D3) 18772 units TABS Take 1 tablet by mouth [...] | | | | | [place] [address] | | | | | | [phone] | | | | | | | | +--------+ + + + + | 10/30/ | Office | Primary Care | Erika Ernst, | | | 2019 | Visit | | DO [address] [place] | | | | | | [place] [address] | | | | | | [phone] | | | | | | | [...] [place] | | | | | | [address] | | | | | | [phone] | | | | | | | | +--------+ + + + + | 02/09/ | Office | Neurology | Dhara, | | | 2019 | Visit | | [address]WA[address] | | | | | | [address] [place], | | | | | | [place] [address] | | | | | | [phone] | | | | | | | [...] | mL/min/1.73m2 | [facility] | | | [facility] | RATE,ESTIMATED | | [facility] | | | | mL/min/1.11w6Mnsg than | | LABORATORY | | | [...] + + | [place] [facility] | [address] | [place] [address] | [phone] | | HOSPITAL LABORATORY | | | | + + + + + documented in this encounter Visit Diagnoses + + | Diagnosis | + + | Leukocytosis, unspecified type - Primary | + + documented in this encounter
--- OUTSIDE RECORDS SUMMARY | ~2019-09-30 | XMS | Encounter Summary ---
Demographics + + + | Address | [address] | | | [place] [address] | + + + | Home Phone [...] Team Providers + +------+ + | Care Plastic Tile Layer Name | Role | Phone | + [...] | | | 2018 | Support | [facility] | DO [address] | | | | | MEDICAL CLINIC [address] | [place] [address] | | | | | [address] [place], | [phone] | | | | | [place] [address] | | | | | | [phone] | | | +--------+ + + + [...] undergoing occupational therapy with Ni [facility] at [facility] and has only regained 50% of her strength back. Please advise. I told pt we would give her a call back after we discussed with Dr. Ernst. Thanks [facility] (Can OT manage workman comp claim?) Electronically [...] | | | | | [place] [address] | | | | | | [phone] | | | | | | | | +--------+ + + + + | 10/30/ | Office | Primary Care | Erika Ernst, | | | 2019 | Visit | | DO [address] [place] | | | | | | [place] [address] | | | | | | [phone] | | | | | | | [...] [place] | | | | | | [address] | | | | | | [phone] | | | | | | | | +--------+ + + + + | 02/09/ | Office | Neurology | Dhara, | | | 2019 | Visit | | [address]WA[address] Ross [address] | | | | | [address] [place], | | | | | | [place] [address] | | | | | | [phone] | | | | | | | | +--------+ + + + + documented as of this encounter Visit Diagnoses Not on filedocumented in this encounter
--- OUTSIDE RECORDS SUMMARY | ~2019-09-30 | XMS | Encounter Summary ---
Demographics + + + | Address | [address] | | | [place] [address] | + + + | Home Phone [...] Providers + +------+ + | Care Plant Physiologist Name | Role | Phone | + [...] | | | [place], [place] | [address] | | | | | [address] | | | | | | [phone] | | | +--------+ + + + [...] | | | | | [place] [address] | | | | | | [phone] | | | | | | | | +--------+ + + + + | 10/30/ | Office | Primary Care | Erika Ernst, | | | 2019 | Visit | | DO [address] [place] | | | | | | [place] [address] | | | | | | [phone] | | | | | | | [...] [place] | | | | | | [address] | | | | | | [phone] | | | | | | | | +--------+ + + + + | 02/09/ | Office | Neurology | Dhara, | | | 2019 | Visit | | [address]WA[address] | | | | | | [address] [place], | | | | | | [place] [address] | | | | | | [phone] | | | | | | | | +--------+ + + + + documented as of this encounter Visit Diagnoses Not on filedocumented in this encounter"
--- OUTSIDE RECORDS SUMMARY | ~2019-09-30 | XMS | Encounter Summary ---
Demographics + + + | Address | [address] | | | [place] [address] | + + + | Home Phone [...] + + + | Author | [facility] | | | and [place] | + + + | Organization | [facility] | | [...] Team Providers + +------+ + | Care Heavy Equipment Rental Manager Name | Role | Phone | + +------+ + | Erika Ernst DO | PCP | | + +------+ + Encounter Details +--------+ + + + + | Date | Type | Department | Care Team | Description | +--------+ + + + + | 06/17/ | Hospital | [facility] | Conversion | Diagnosis unknown | | 2018 | Encounter | CONVERSION [address] | Transaction, | | | | | [address] | Provider Unknown | | | | | [place], [place] | [phone] | | | | | [address] | (Fax) | | | | | [phone] | | | +--------+ + + + [...] | 03/19/20 | | | (VITAMIN D3) 36016 | mouth Once a week | tablet [...] | | | | | [place] [address] | | | | | | [phone] | | | | | | | | +--------+ + + + + | 10/30/ | Office | Primary Care | Erika Ernst, | | | 2019 | Visit | | DO [address] [facility] [facility] [address] [place] | | | | | | [place] [address] | | | | | | [phone] | | | | | | | [...] [place] | | | | | | [address] | | | | | | [phone] | | | | | | | | +--------+ + + + + | 02/09/ | Office | Neurology | Dhara, | | | 2019 | Visit | | [address]WA[address] | | | | | | [address] [place], | | | | | | [place] [address] | | | | | | [phone] | | | | | | | | +--------+ + + + + documented as of this encounter Procedures + +--------+ + + + | Procedure Name | Priori | Date/Time | Associated Diagnosis | Comments | | | ty | | | | + +--------+ + + + | XR WRIST RIGHT 3 + | Routin | 12/05/2017 | | Results for this | | VW | e | 5:41 PM | | procedure are in the | | | | PST | | results section. | + +--------+ + + + documented in this encounter Results XR Wrist Right 3 + Vw (12/05/2017 5:41 PM PST) + + | Specimen [...]
--- OUTSIDE RECORDS SUMMARY | ~2019-09-30 | XMS | Encounter Summary ---
Demographics + + + | Address | [address] | | | [place] [address] | + + + | Home Phone [...] Team Providers + +------+ + | Care Beef Cattle Grazier Name | Role | Phone | + +------+ + PCP | Unavailable | + +------+ + Encounter Details +--------+ + + + + | Date | Type | Department | Care Team | Description | +--------+ + + + + | 09/11/ | [facility] | Erika Ernst, | | | 2014 | Encounter | HOSPITAL [facility]ORY | DO [address] | | | | | [address] [place] | [place] [address] | | | | | [place], [place] | [phone] | | | | | [address] | | | | | | [phone] | | | +--------+ + + + [...] | | | | | [place] [address] | | | | | | [phone] | | | | | | | | +--------+ + + + + | 10/30/ | Office | Primary Care | Erika Ernst, | | | 2019 | Visit | | DO [address] [place] | | | | | | [place] [address] | | | | | | [phone] | | | | | | | [...] [place] | | | | | | [address] | | | | | | [phone] | | | | | | | | +--------+ + + + + | 02/09/ | Office | Neurology | Dhara, | | | 2019 | Visit | | [place], MARINE W[address]DER [address] | | | | | | [address] [facility], | | | | | | [place] [address] | | | | | | [phone] | | | | | | | | +--------+ + + + + documented as of this encounter Procedures + +--------+ + + + | Procedure Name | Priori | Date/Time | Associated Diagnosis | Comments | | | ty | | | | + +--------+ + + + | LIPID PANEL | Routin | 09/11/2015 | | Results for this | | | e | 8:12 AM | | procedure are in the | | | | PST | | results section. | + +--------+ + + + | TSH | Routin | 09/11/2015 | | Results for this | | | e | 8:12 AM | | procedure are in the | | | | PST | | results section. | + +--------+ + + + | COMPREHENSIVE | Routin | 09/11/2015 | | Results for this | | METABOLIC PANEL | e | 8:12 AM | | procedure are in the | | | | PST | | results section. | + +--------+ + + + documented in this encounter Results TSH (09/11/2015 8:12 AM PST) + +-------+ + + + | Component | Value | Ref Range | Performed | Pathologist | | | | | At | Signature | + +-------+ + + + | TSH | 2.91 | 0.40 - 4.68 | EXTERNAL | | | | | mIU/L | LAB | | + +-------+ + + + + + | Specimen | + + | | + + + +---------+ + + | Performing | Address | City/State/Zipcode | Phone Number | | Organization | | | | + +---------+ + + | EXTERNAL LAB | | | | + +---------+ + + Lipid Panel (09/11/2015 8:12 AM PST) + +-------+ + + + | Component | Value | Ref Range | Performed | Pathologist | | | | | At | Signature | + +-------+ + + + | Cholesterol | 134 | <=200 mg/dL | EXTERNAL | | | , POC | | | LAB | | + +-------+ + + + | HDL | 41 | >=40 mg/dL | EXTERNAL | | | | | | LAB | | + +-------+ + + + | Triglycerid | 85 | 30 - 200 mg/dL | EXTERNAL | | | es | | | LAB | | + +-------+ + + + | Chol/HDL | 3.3 | <=4.6 RATIO | EXTERNAL | | | Ratio | | | LAB | | + +-------+ + + + | VLDL | 17 | 4 - 40 mg/dL | EXTERNAL | | | | | | LAB | | + +-------+ + + + | LDL-C | 76 | <=130 mg/dL | EXTERNAL | | [...] + +---------+ + + Comprehensive Metabolic Panel (09/11/2015 8:12 AM PST) + +-------+ + + + | Component | Value | Ref Range | Performed | Pathologist | | | | | At | Signature | + +-------+ + + + | Sodium | 140 | 132 - 143 | EXTERNAL | [...] + + + | Anion Gap | 8 | 7 - 16 | EXTERNAL | | | | | | LAB | | + +-------+ + + + | Calcium | 8.5 | 8.3 - 10.0 | EXTERNAL | | | | | mg/dL | LAB | | + +-------+ + + + | Glucose | 109 | 70 - 110 mg/dL | EXTERNAL | | | | | | LAB | | + +-------+ + + + | BUN, Bld | 11 | 5 - 26 mg/dL | EXTERNAL | | | | | | LAB | | + +-------+ + + + | Creatinine | 1 | 0.6 - 1.3 mg/dL | EXTERNAL | | | | | | LAB | | + +-------+ + + + | BUN/Creatin | 11 | 7.0 - 24.0 | EXTERNAL | | | ine Ratio | | RATIO | LAB | | + +-------+ + + + | GFR | 60 | >=60 | EXTERNAL | | | ESTIMATE | | mL/min/1.73m2 | LAB | | | (REF) | | | | | + +-------+ + + + | Bilirubin, | 0.7 | <=1.2 mg/dL | EXTERNAL | | | Total | | | LAB | | + +-------+ + + + | Protein, | 6.8 | 6.6 - 8.5 g/dL | EXTERNAL | | | Total | | | LAB | | + +-------+ + + + | Albumin | 3.5 | 3.0 - 4.5 g/dL | EXTERNAL | | | | | | LAB | | + +-------+ + + + | Alkaline | 75 | 46 - 116 U/L | EXTERNAL | | | Phosphatase | | | LAB | | + +-------+ + + + | ALT, | 28 | 14 - 59 U/L | EXTERNAL | | | External | | | LAB | | + +-------+ + + + | AST, | 18 | <=38 U/L | EXTERNAL | | [...]
--- OUTSIDE RECORDS SUMMARY | ~2019-09-30 | XMS | Encounter Summary ---
Demographics + + + | Address | [address] | | | [place] [address] | + + + | Home Phone [...] Team Providers + +------+ + | Care Geologist Name | Role | Phone | + +------+ + | Erika Ernst DO | PCP | | + +------+ + Reason for Visit +---------+ + | Reason | Comments | +---------+ + | Results | | +---------+ + Encounter Details +--------+ + + + + | Date | Type | Department | Care Team | Description | +--------+ + + + + | 09/23/ | Telephone | [place] [facility] | Herbert Herron | Results | | 2019 | | [facility] | LISA Abad [address] | | | | | [address] | [address] [place], | | | | | [place], [place] | [place] [address] | | | | | [address] | [phone] | | | | | [phone] | | | +--------+ + + + [...] | | | | | [place] [address] | | | | | | [phone] | | | | | | | | +--------+ + + + + | 10/30/ | Office | Primary Care | Erika Ernst, | | | 2019 | Visit | | DO [address] | | | | | | [place] [address] | | | | | | [phone] | | | | | | | [...] [place] | | | | | | [address] | | | | | | [phone] | | | | | | | | +--------+ + + + + | 02/09/ | Office | Neurology | Dhara, | | | 2019 | Visit | | [address] | | | | | | [address] [place], | | | | | | [place] [address] | | | | | | [phone] | | | | | | | | +--------+ + + + + documented as of this encounter Visit Diagnoses Not on filedocumented in this encounter"
--- OUTSIDE RECORDS SUMMARY | ~2019-09-30 | XMS | Encounter Summary ---
Demographics + + + | Address | [address] | | | [place] [address] | + + + | Home Phone [...] Team Providers + +------+ + | Care Prompt Care Rn Name | Role | Phone | + [...] + + | Authorizatio | Specialty | Nutrition | Diagnoses | Klever, | Cc Wgr | | n not | Services | | Class 3 | Erika A, DO | Nutrition | | Required | Required | | severe | [address] | Services [address] | | | | | obesity due | [place], | [address] | | | | | to excess | [place] [address] | [place], [place] | | | | | calories | Phone: | [phone] | | | | | without | [phone] | Phone: | | | | | serious | Fax: | [phone] | | | | | comorbidity | [phone] | Fax: | | | | | with body | | [phone] | | | | | mass index [...] | | | | | [facility] | | | | | [...] + | 09/11/ | Hospital | [place] [facility] | Erika Ernst, | Essential | | 2019 | Encounter | HOSPITAL NUTRITION | DO [address] [place] | hypertension, | | | | SERVICES [address] | [place] [address] | malignant; Morbid | | | | [place], [place] | [phone] | obesity (HCC); | | | | [address] | | Dietary counseling | | | | [phone] | Janel Webster, | and surveillance; | | | | | RD | Body mass index | | | | | | 50.0-59.9, adult | | | | | | (HCC) | +--------+ + + + + [...] 1-2 | 60 vial | 0 | 08/13/20 | | | mL nebulizer | treatments [...] puff INTO | 1 | 5 | // | | | 20-100 MCG/ACT | THE [...] | | | | | | (NENO ELLIPTA IN) | | | | | [...] +---------+ + + | prazosin | Take 1 capsule by | 30 | 11 | 08/01/20 | | | (MINIPRESS) 1 mg | mouth nightly. | capsule | | 19 | 9 | | capsule | | | | | | + + + +---------+ + + | predniSONE | Take 2 tablets by | 8 | 0 | 09/09/20 | | | (DELTASONE) 20 mg | [...] + + | ramipril (ALTACE) | Take 2.5 mg daily | 30 | 11 | 08/20/20 | | | 2.5 mg capsule | with 5mg to equal | capsule | | 19 | 9 | | | 7.5 mg dose. | | | | | + + + +---------+ + + | ramipril (ALTACE) | Take 1 capsule by | 30 | 11 | 07/19/20 | | | 5 mg capsule | mouth Daily. | capsule | | 19 | 9 | + + + +---------+ + + | SUMAtriptan | TAKE ONE TABLET BY | 9 | 0 | 08/21/20 | | | (IMITREX) 100 mg | MOUTH AT FIRST ONSET | tablet | | 19 | 9 | | tablet | OF MIGRAINE | | | | | | | SYMPTOMS, MAY REPEAT | | | | | | | AFTER 2 HOURS; MAX | | | | | | | DOSE 200MG IN 24 | | | | | | | HOURS | | | | | + + + +---------+ + + documented as of this encounter Progress Notes Janel Webster, RD - 09/11/2019 8:00 AM PSTAssessment: Dx: obesity, hypothroidism Pt reports recent nausea/decreased PO intake due to bladder infection-recent ER visit then another ER visit due to swelling of throat/thyroid. Physical activity: walks, still limited on certain activities due to wrist, ankle and back. She is still not interested in looking i nto physical therapy to help. Continues to see a counselor once a month. She would like to s ee a psychiatrist but does not want to see one that she has to work with so her options are limited per pt. Food recall: B: skips or fruit or muffin L: tofu chicken nuggets, fruit D: v kirk roast, whole wheat, cauliflower, broccoli. Height:5'10 Current wt:375# Last RD visit wt: 384# BMI:53.9 Nutrition Diagnosis: No dx at this time Intervention: Wt loss 11# since last visit. Pt seems to be doing good with eating more meals at home by doing more meal prepping. Reeducated on the importance of not skipping meals. Provided healt hy breakfast ideas. Educated on the importance of eating food with her ibuprofen since she i s now noticing discomfort in her stomach. Rec getting an updated iron test. Goals: 1.) Eat 3 meals per day 2.) Keep/Bring food diary 3.) Bring pictures of the nutrition facts label of frozen food items (tofu chicken nuggets ) Pt receptive to education. Pt will keep a food diary for next visit. Monitor/Evaluation: Will monitor wt trends, nutrition related labs and food diary. Scheduled for a revisit in 8 to 10 weeks. Time spent with pt: 45 mins Electronically Signed by: Janel Webster RD 09/11/2019 1:22 PM documented in this encounter Plan of Treatment +--------+ + + + + | Date | Type | Specialty | Care Team | Description | +--------+ + + + + | 10/01/ | Office | Primary Care | Erika Ernst, | | | 2018 | Visit | | DO [address] [place] | | | | | | [place] [address] | | | | | | [phone] | | | | | | | | +--------+ + + + + | 10/30/ | Office | Primary Care | Erika Ernst, | | | 2019 | Visit | | DO [address] [place] | | | | | | [place] [address] | | | | | | [phone] | | | | | | | | +--------+ + + + + | 11/07/ | Appointment | Nutrition | Janel Webster | | 2019 | | | G, RD | | +--------+ + + + + | 11/28/ | Office | Otolaryngology | Anthony Alvarado MD | | 2019 | Visit | | [address] | | | | | | [place], [place] | | | | | | [address] | | | | | | [phone] | | | | | | | | +--------+ + + + + | 02/09/ | Office | Neurology | Dhara, | | | 2020 | Visit | | [address] | | | | | | [address] [facility], | | | | | | [place] [address] | | | | | | [phone] | | | | | | | | +--------+ + + + + documented as of this encounter Visit Diagnoses + + | Diagnosis | + + | Essential hypertension, malignant | + + | Morbid obesity (HCC) Morbid obesity | + + | Dietary counseling and surveillance Dietary surveillance and counseling | + + | Body mass index 50.0-59.9, adult (HCC) Body Mass Index 50.0-59.9, adult | + + documented in this encounter"
--- OUTSIDE RECORDS SUMMARY | ~2019-09-30 | XMS | Encounter Summary ---
Demographics + + + | Address | [address] | | | [place] [address] | + + + | Home Phone [...] + + + | Author | [facility] | | | and [place] | + + + | Organization | [facility] | | [...] Team Providers + +------+ + | Care Cabin Cleaner Name | Role | Phone [...] Provider Unknown | | | | | [place], [place] | [phone] | | | | | [phone] | (Fax) | | | | | [phone] | | | +--------+ + + + [...] | 03/19/20 | | | (VITAMIN D3) [id number] | mouth Once a week | tablet [...] Visit | | DO [address] [place] | | | | | | [place] [address] | | | | | | [phone] | | | | | | | | +--------+ + + + + | 10/30/ | Office | Primary Care | Erika Ernst, | | | 2019 | Visit | | DO [address] [place] | | | | | | [place] [address] | | | | | | [phone] | | | | | | | [...] [place] | | | | | | [address] | | | | | | [phone] | | | | | | | | +--------+ + + + + | 02/09/ | Office | Neurology | Dhara, | | | 2020 | Visit | | DWAINE Ross [address] [place], | | | | | | [place] [address] | | | | | | [phone] | | | | | | | [...]
--- OUTSIDE RECORDS SUMMARY | ~2019-09-30 | XMS | Encounter Summary ---
Demographics + + + | Address | [address] | | | [place] [address] | + + + | Home Phone [...] Team Providers + +------+ + | Care Business Continuity Global Director Name | Role | Phone | [...] | [facility] | [place] [address] | | | | | [address] [place], | [phone] | | | | | [place] [address] | | | | | | [phone] | | | +--------+ + + + [...] | | | | | [place] [address] | | | | | | [phone] | | | | | | | | +--------+ + + + + | 10/30/ | Office | Primary Care | Erika Ernst, | | | 2019 | Visit | | DO [address] [place] [address] | | | | | | [place] [address] | | | | | | [phone] | | | | | | | [...] [place] | | | | | | [address] | | | | | | [phone] | | | | | | | | +--------+ + + + + | 02/09/ | Office | Neurology | Dhara, | | | 2019 | Visit | | [address] | | | | | | [address] [place], | | | | | | [place] [address] | | | | | | [phone] | | | | | | | | +--------+ + + + + documented as of this encounter Visit Diagnoses Not on filedocumented in this encounter"
--- OUTSIDE RECORDS SUMMARY | ~2019-09-30 | XMS | Encounter Summary ---
Demographics + + + | Address | [address] | | | [place] [address] | + + + | Home Phone [...] Providers + +------+ + | Care Interventional Technologist Name | Role | Phone | + +------+ + PCP | Unavailable | + +------+ + Encounter Details +--------+ + + + + | Date | Type | Department | Care Team | Description | +--------+ + + + + | 02/23/ | [facility] | [facility] | Erika Ernst, | | | 2016 | Encounter | [facility] | DO [address] | | | | | [facility] | [facility] [place] [address] | | | | | [address] [place], | [phone] | | | | | [place] [address] | | | | | | [phone] | | | +--------+ + + + [...] | | | | | [place] [address] | | | | | | [phone] | | | | | | | | +--------+ + + + + | 10/30/ | Office | Primary Care | Erika Ernst, | | | 2019 | Visit | | DO [address] | | | | | | [place] [address] | | | | | | [phone] | | | | | | | [...] [place] | | | | | | [address] | | | | | | [phone] | | | | | | | | +--------+ + + + + | 02/09/ | Office | Neurology | Dhara, | | | 2019 | Visit | | [address] | | | | | | [address] [place], | | | | | | [place] [address] | | | | | | [phone] | | | | | | | | +--------+ + + + + documented as of this encounter Visit Diagnoses Not on filedocumented in this encounter"
--- OUTSIDE RECORDS SUMMARY | ~2019-09-30 | XMS | Encounter Summary ---
Demographics + + + | Address | [address] | | | [place] [address] | + + + | Home Phone [...] Providers + +------+ + | Care Certified Lactation Educator Name | Role | Phone | + +------+ + | Erika Ernst DO | PCP | | + +------+ + Reason for Visit +--------+ + | Reason | Comments | +--------+ + | Other | Call pt re: recent ER visit | +--------+ + Encounter Details +--------+ + + + + | Date | Type | Department | Care Team | Description | +--------+ + + + + | 04/22/ | Telephone | [place] [facility] | Erika Ernst, | Other (Call pt re: | | 2018 | | [facility] | DO [address] | recent ER visit) | | | | [facility] | [place] [address] | | | | | [address] [place], | [phone] | | | | | [place] [address] | | | | | | [phone] | | | +--------+ + + + [...] | | | | | [place] [address] | | | | | | [phone] | | | | | | | | +--------+ + + + + | 10/30/ | Office | Primary Care | Erika Ernst, | | | 2019 | Visit | | DO [address] | | | | | | [place] [address] | | | | | | [phone] | | | | | | | [...] [place] | | | | | | [address] | | | | | | [phone] | | | | | | | | +--------+ + + + + | 02/09/ | Office | Neurology | Dhara, | | | 2020 | Visit | | [address] | | | | | | [address] [place], | | | | | | [place] [address] | | | | | | [phone] | | | | | | | | +--------+ + + + + documented as of this encounter Visit Diagnoses Not on filedocumented in this encounter"
--- OUTSIDE RECORDS SUMMARY | ~2019-09-30 | XMS | Encounter Summary ---
Demographics + + + | Address | [address] | | | [place] [address] | + + + | Home Phone [...] Team Providers + +------+ + | Care Dispensing Optician Name | Role | Phone | + [...] | [place] [facility] | Erika Ernst, | Lori's Comp | | 2019 | | [facility] | DO [address] | | | | | [facility] | [place] [address] | | | | | [address] [place], | [phone] | | | | | [place] [address] | | | | | | [phone] | | | +--------+ + + + [...] | | | | | [place] [address] | | | | | | [phone] | | | | | | | | +--------+ + + + + | 10/30/ | Office | Primary Care | Erika Ernst, | | | 2019 | Visit | | DO [address] | | | | | | [place] [address] | | | | | | [phone] | | | | | | | [...] [place] | | | | | | [address] | | | | | | [phone] | | | | | | | | +--------+ + + + + | 02/09/ | Office | Neurology | Dhara, | | | 2019 | Visit | | [address] | | | | | | [address] [place], | | | | | | [place] [address] | | | | | | [phone] | | | | | | | | +--------+ + + + + documented as of this encounter Visit Diagnoses Not on filedocumented in this encounter"
--- OUTSIDE RECORDS SUMMARY | ~2019-09-30 | XMS | Encounter Summary ---
Demographics + + + | Address | [address] | | | [place] [address] | + + + | Home Phone [...] Providers + +------+ + | Care Electric Motor Winders Assembler Name | Role | Phone | [...] | Medication | | 2019 | | [facility] | Donte, BEAM WARPER [address] | Management | | | | [facility] | [place], [place] | | | | | [address] [place], | [address] | | | | | [place] [address] | [phone] | | | | | [phone] | | | +--------+ + + + [...] | | | | | [place] [address] | | | | | | [phone] | | | | | | | | +--------+ + + + + | 10/30/ | Office | Primary Care | Erika Ernst, | | | 2019 | Visit | | DO [address] [place] [place] [address] | | | | | | [place] [address] | | | | | | [phone] | | | | | | | [...] | | | | | | [place] | | | | | | [address] | | | | | | [phone] | | | | | | | | +--------+ + + + + | 02/09/ | Office | Neurology | Dhara, | | | 2019 | Visit | | [address] | | | | | | [address]TH [facility], | | | | | | [place] [address] | | | | | | [phone] | | | | | | | | +--------+ + + + + documented as of this encounter Visit Diagnoses + + | Diagnosis | + + | Hypertension, unspecified type - Primary | + + documented in this encounter"
--- OUTSIDE RECORDS SUMMARY | ~2019-09-30 | XMS | Encounter Summary ---
Demographics + + + | Address | [address] | | | [place] [address] | + + + | Home Phone [...] Team Providers + +------+ + | Care Glost Placer Name | Role | Phone | + [...] | | | | encounter | [place] [address] | [place], [place] | | | | | Procedures | Phone: | [address] | | | | | [place] | [phone] | Phone: | | | | | | Fax: | [phone] | | | | | | [phone] | Fax: | | | | | | | [phone] | + + + + + + + Reason for Visit + + + | Reason | Comments | + + + | Follow-up | workmans comp right wrist | + + + Encounter Details +--------+---------+ + + + | Date | Type | Department | Care Team | Description | +--------+---------+ + + + | 06/18/ | Office | [place] [facility] | Erika Ernst, | Sprain of right | | 2019 | Visit | [facility] | DO [address] | hand, subsequent | | | | [facility] | [place] [address] | encounter (Primary | | | | [address] [place], | [phone] | Dx); Hypothyroidism, | | | | [place] [address] | | unspecified type; | | | | [phone] | | Iron deficiency | +--------+---------+ + + + Social [...] + | Blood Pressure | 132/84 | 06/18/2019 3:35 PM | | | | | PDT | | + + + + + | Pulse | 81 | 06/18/2019 3:35 PM | | | | | PDT | | + + + + + | Temperature | - | - | | + + + + + | Respiratory Rate | 16 | 06/18/2019 3:35 PM | | | | | PDT | | + + + + + | Oxygen Saturation | 98% | 06/18/2019 3:35 PM | | | | | PDT | | + + + + + | Inhaled Oxygen | - | - | | | Concentration | | | | + + + + + | Weight | 166 kg (366 lb) | 06/18/2019 3:35 PM | | | | | PDT | | + + + + + | Height | 177.8 cm (5' 10") | 06/18/2019 3:35 PM | | | | | PDT | | + + + + + | Body Mass Index | 52.52 | 06/18/2019 3:35 PM | | | | | PDT | | + + + + + documented in this encounter Progress Erika Cespedes DO - 06/18/2019 3:30 PM PDTFormatting of this note might be different fro m the original. Subjective: Patient ID: Andrea Suh is a 29 y.o. female. Work comp and ER FU. Was seen in the ER on 06/13 for fall at work where she stepped over leo e children and to avoid landing on child fell to the right and on right out stretched hand. Xray was negative. Prior hand surgery had been healing well. States new swelling on top of h and and pain top of hand and lateral side from sm finger proximally. + classroom monitor but with pain. S he has appointment already for Dr Leann fordron for her FU. Recent lab for Thyroid manuel ws hypothyroidism and she has family Hx of this and thyroid cancer she is worried about. VS normal good BP. Iron improved with recent lab but still low and she will continue supplement s. Review of Systems As above Objective: BP 132/84 | Pulse 81 | Resp 16 | Ht 1.778 m (5' 10") | Wt (!) 166 kg (366 lb) | SpO2 9 8% | BMI 52.52 kg/m Physical Exam Constitutional: She is oriented to person, place, and time. She appears well-developed and well-nourished. No distress. HENT: Head: Normocephalic and atraumatic. Neck: Normal range of motion. Neck supple. No thyromegaly present. No thyromegaly and no nodules but states thyroid is sl tender Cardiovascular: Normal rate, regular rhythm and normal heart sounds. No murmur heard. Pulmonary/Chest: Effort normal and breath sounds normal. No respiratory distress. Musculoskeletal: Right hand top of hand trace swelling and lateral side of wrist area. No redness. Prior hubbard rgical area healed. Cotton Inspector and ROM decreased due to pain of the right hand. + radial pulse and normal warmth to the hand Neurological: She is alert and oriented to person, place, and time. Coordination normal. Skin: Skin is warm and dry. Capillary refill takes less than 2 seconds. Psychiatric: She has a normal mood and affect. Her behavior is normal. Assessment: 1. Sprain of right hand, subsequent encounter AMB Referral to [facility] 2. Hypothyroidism, unspecified type TSH US Thyroid 3. Iron deficiency Plan: Referral to Dr Leann villar surgeon for FU on right hand sprain. Letter for work. FU ER instr uctions. Started levothyroxine 50 mcg and US the thyroid gland. Increase iron to TID with me als and best with OJ for increased absorption. documented in this en counter Plan of Treatment +--------+ + + + + | Date | Type | Specialty | Care Team | Description | +--------+ + + + + | 10/01/ | Office | Primary Care | Erika Ernst, | | | 2018 | Visit | | DO [address] | | | | | | [place] [address] | | | | | | [phone] | | | | | | | | +--------+ + + + + | 10/30/ | Office | Primary Care | Erika Ernst, | | | 2019 | Visit | | DO [address] | | | | | | [place] [address] | | | | | | [phone] | | | | | | | [...] [place] | | | | | | [address] | | | | | | [phone] | | | | | | | | +--------+ + + + + | 02/09/ | Office | Neurology | Dhara, | | | 2019 | Visit | | [address] | | | | | | [address] [place], | | | | | | [place] [address] | | | | | | [phone] | | | | | | | [...] documented as of this encounter Results TSH (07/24/2019 8:39 AM PDT) + +-------+ + + + | Component | Value | Ref Range | Performed | Pathologist | | | | | At | Signature | + +-------+ + + + | TSH | 1.58 | 0.36 - 3.74 | [place] | [...] + + + | [place] [facility] | [address] [place] [address] Street | [place] [address] | [phone] | | [facility] | | | | | [facility] | | | | + + + + + US Thyroid (06/28/2019 9:55 AM PDT) + [...] + + | Yoni Grullon In - 06/28/2019 10:57 AM PDT EXAMINATION:US [...] Diagnosis | + + | Sprain of right hand, subsequent encounter - Primary | + + | Hypothyroidism, unspecified type | + + | Iron deficiency Other disorders of iron metabolism | + + documented in this encounter
--- OUTSIDE RECORDS SUMMARY | ~2019-09-30 | XMS | Encounter Summary ---
Demographics + + + | Address | [address] | | | [place] [address] | + + + | Home Phone [...] Team Providers + +------+ + | Care Roads Supervisor Name | Role | Phone | [...] 05/16/ | Telephone | [place] [facility] | Erika Ernst, | ED Follow-up | | 2019 | | [facility] | DO [address] | | | | | [facility] | [place] [address] | | | | | [address] [place], | [phone] | | | | | [place] [address] | | | | | | [phone] | | | +--------+ + + + [...] | | | | | [place], [place] [address] | | | | | | [phone] | | | | | | | | +--------+ + + + + | 10/30/ | Office | Primary Care | Erika Ernst, | | | 2019 | Visit | | DO [address] [place] [address] | | | | | | [place] [address] | | | | | | [phone] | | | | | | | [...] [place] | | | | | | [address] | | | | | | [phone] | | | | | | | | +--------+ + + + + | 02/09/ | Office | Neurology | Dhara, | | | 2019 | Visit | | [address] | | | | | | [address] [place], | | | | | | [place] [address] | | | | | | [phone] | | | | | | | | +--------+ + + + + documented as of this encounter Visit Diagnoses Not on filedocumented in this encounter"
--- OUTSIDE RECORDS SUMMARY | ~2019-09-30 | XMS | Encounter Summary ---
Demographics + + + | Address | [address] | | | [place] [address] | + + + | Home Phone [...] Providers + +------+ + | Care Rotary Slicing Machine Operator Name | Role | Phone | + +------+ + | Erika Ernst DO | PCP | | + +------+ + Reason for Visit +--------+ + | Reason | Comments | +--------+ + | Other | requesting results | +--------+ + Encounter Details +--------+ + + + + | Date | Type | Department | Care Team | Description | +--------+ + + + + | 09/23/ | Telephone | [place] [facility] | Herbert Herron | Other (requesting | | 2019 | | [facility] | LISA [address] | results) | | | | [address] [place] | [place], | | | | | [place], [place] | [place] [address] | | | | | [address] | [phone] | | | | | [phone] | | | +--------+ + + + [...] | | | | | [place] [address] | | | | | | [phone] | | | | | | | | +--------+ + + + + | 10/30/ | Office | Primary Care | Erika Ernst, | | | 2019 | Visit | | DO [address] | | | | | | [place] [address] | | | | | | [phone] | | | | | | | [...] [place] | | | | | | [address] | | | | | | [phone] | | | | | | | | +--------+ + + + + | 02/09/ | Office | Neurology | Dhara, | | | 2020 | Visit | | [address] | | | | | [address] [place], | | | | | | [place] [address] | | | | | | [phone] | | | | | | | | +--------+ + + + + documented as of this encounter Visit Diagnoses Not on filedocumented in this encounter"
--- OUTSIDE RECORDS SUMMARY | ~2019-09-30 | XMS | Encounter Summary ---
Demographics + + + | Address | [address] | | | [place] [address] | + + + | Home Phone [...] Team Providers + +------+ + | Care Grease Cup Filler Name | Role | Phone | + [...] | [facility] | [place] [address] | | | | | [address] [place], | [phone] | | | | | [place] [address] | | | | | | [phone] | | | +--------+ + + + [...] | | | | | [place] [address] | | | | | | [phone] | | | | | | | | +--------+ + + + + | 10/30/ | Office | Primary Care | Erika Ernst, | | | 2019 | Visit | | DO [address] | | | | | | [place] [address] | | | | | | [phone] | | | | | | | [...] [place] | | | | | | [address] | | | | | | [phone] | | | | | | | | +--------+ + + + + | 02/09/ | Office | Neurology | Dhara, | | | 2019 | Visit | | [address] | | | | | | [address] [place], | | | | | | [place] [address] | | | | | | [phone] | | | | | | | | +--------+ + + + + documented as of this encounter Visit Diagnoses Not on filedocumented in this encounter"
--- OUTSIDE RECORDS SUMMARY | ~2019-09-30 | XMS | Encounter Summary ---
Demographics + + + | Address | [address] | | | [place] [address] | + + + | Home Phone [...] Team Providers + +------+ + | Care Obgyn Specialist Name | Role | Phone | + +------+ + | Erika Ernst DO | PCP | | + +------+ + Encounter Details +--------+ + + + + | Date | Type | Department | Care Team | Description | +--------+ + + + + | 11/28/ | Emergency | [place] [facility] | | | | 2018 | | [facility] | [facility] [address] | | | | | | [address] [place] | | | | | | [address] | | | | | | [phone] | | | +--------+ + + + [...] + + + | Blood Pressure | 168/85 | 11/28/2018 3:20 PM | | | | | PST | | + + + + + | Pulse | 91 | 11/28/2018 3:20 PM | | | | | PST | | + + + + + | Temperature | 36.9 C (98.4 F) | 11/28/2018 3:20 PM | | | | | PST | | + + + + + | Respiratory Rate | 16 | 11/28/2018 3:20 PM | | | | | PST | | + + + + + | Oxygen Saturation | 99% | 11/28/2018 3:20 PM | | | | | PST | | + + + + + | Inhaled Oxygen | - | - | | | Concentration | | | | + + + + + | Weight | 149.7 kg (330 lb) | 11/28/2018 3:20 PM | | | | | PST | | + + + + + | Height | 177.8 cm (5' 10") | 11/28/2018 3:20 PM | | | | | PST | | + + + + + | Body Mass Index | 47.35 | 11/28/2018 3:20 PM | | | | | PST [...] | 11/26/19 | | | (VITAMIN D3) 54899 | mouth Once a week | tablet [...] + + + +---------+ + + | [address] | | | 0 | [...] | | | | | [place] [address] | | | | | | [phone] | | | | | | | | +--------+ + + + + | 10/30/ | Office | Primary Care | Erika Ernst, | | | 2019 | Visit | | DO [address] | | | | | | [place] [address] | | | | | | [phone] | | | | | | | [...] [place] | | | | | | [address] | | | | | | [phone] | | | | | | | | +--------+ + + + + | 02/09/ | Office | Neurology | Dhara, | | | 2019 | Visit | | [address] | | | | | | [address] [place], | | | | | | [place] [address] | | | | | | [phone] | | | | | | | | +--------+ + + + + + +------+--------+ + + | Name | Type | Priori | Associated Diagnoses | Date/Time | | | | ty | | | + +------+--------+ + + | ED INFORMATION | YARITZA | Routin | | 11/28/2018 3:08 PM | | EXCHANGE | | e | | PST | + +------+--------+ + + documented as of this encounter Procedures + +--------+ + + + | Procedure Name | Priori | Date/Time | Associated Diagnosis | Comments | | | ty | | | | + +--------+ + + + | ED INFORMATION | Routin | 11/28/2018 | | | | EXCHANGE | e | 3:08 PM | | | | | | PST | | | + +--------+ + + + +---+--------+ | | | | | Proced | | | ure | | | Note - | | | Destiny, | | | Lab In | | | | | | Hlseve | | | n - | | | | | | 2018 | | | 3:09 | | | PM PST | | | | | | Format [...] | | | 9 | | | 15:07? | | | NOBLIT | | | , | | | ANDREA | | | C?MRN: | | | | | | [id number] | | | [id number] | | | riteri | | | [...] MED | | | | | | 2018-1 [...] | | | sed | | | 100 | | | Unique | | | | | | Prescr | | | ibers | | | 2 | | | Unique | | | [...] | | Hospit | | | al 2 | | | [facility] | | y | | | Hospit | | | al 1 | | | Total | | | 3 | | | Note: | | | [...] | | | int | | | Feb | | | [...] | | | St. | | | [place] | | | y H. | | [...] | | | t | | | PCP_Un | | | attrib | | | uted | | | Primar | | | [...] | | | ent/e5 | | | [id number] | | | -b14d- | | | 444a-8 | | | [id number] | | | [id number] | | | [id number] | | | The | | | above | | | inform | | | [...] | | | ? | | | 2019 | | | [...] +---+--------+ documented in this encounter Visit Diagnoses Not on filedocumented in this encounter
--- OUTSIDE RECORDS SUMMARY | ~2019-09-30 | XMS | Encounter Summary ---
Demographics + + + | Address | [address] | | | [place] [address] | + + + | Home Phone [...] Team Providers + +------+ + | Care Carpenters Supervisor Name | Role | Phone | [...] | | | [place] | [address] | | | | | [address] | | | | | | [phone] | | | +--------+ + + + [...] | | | | | [place] [address] | | | | | | [phone] | | | | | | | | +--------+ + + + + | 10/30/ | Office | Primary Care | Erika Ernst, | | | 2019 | Visit | | DO [address] | | | | | | [place] [address] | | | | | | [phone] | | | | | | | [...] [place] | | | | | | [address] | | | | | | [phone] | | | | | | | | +--------+ + + + + | 02/09/ | Office | Neurology | Dhara, | | | 2019 | Visit | | [address] | | | | [address] [place], | | | | | | [place] [address] | | | | | | [phone] | | | | | | | | +--------+ + + + + documented as of this encounter Visit Diagnoses Not on filedocumented in this encounter"
--- OUTSIDE RECORDS SUMMARY | ~2019-09-30 | XMS | Encounter Summary ---
Demographics + + + | Address | [address] | | | [place] [address] | + + + | Home Phone [...] Team Providers + +------+ + | Care Consumer Relations Specialist Name | Role | Phone | + +------+ + PCP | Unavailable | + +------+ + Encounter Details +--------+ + + + + | Date | Type | Department | Care Team | Description | +--------+ + + + + | [facility] Denise Mcgregor | | | 2016 | Encounter | [facility] | G, PREPARED FOODS TEAM LEADER [address] | | | | | [facility] | [facility] [place] | | | | | [address] [facility], | [address] | | | | | [place] [address] | [phone] | | | | | [phone] | | | +--------+ + + + [...] | | | | | [place] [address] | | | | | | [phone] | | | | | | | | +--------+ + + + + | 10/30/ | Office | Primary Care | Erika Ernst, | | | 2019 | Visit | | DO [address] | | | | | | [place] [address] | | | | | | [phone] | | | | | | | [...] [place] | | | | | | [address] | | | | | | [phone] | | | | | | | | +--------+ + + + + | 02/09/ | Office | Neurology | Dhara, | | | 2019 | Visit | | [address] | | | | | [address] [place], | | | | | | [place] [address] | | | | | | [phone] | | | | | | | | +--------+ + + + + documented as of this encounter Visit Diagnoses Not on filedocumented in this encounter"
--- OUTSIDE RECORDS SUMMARY | ~2019-09-30 | XMS | Encounter Summary ---
Demographics + + + | Address | [address] | | | [place] [address] | + + + | Home Phone [...] Team Providers + +------+ + | Care Comic Book Artist Name | Role | Phone | + +------+ + PCP | Unavailable | + +------+ + Encounter Details +--------+ + + + + | Date | Type | Department | Care Team | Description | +--------+ + + + + | 12/30/ | [facility] | [facility] | | | 2016 | Encounter | [facility] | [address] [place] | | | | | [address] [place] | [place] | | | | | [place] | [address] | | | | | [address] | [phone] | | | | | [phone] | | | +--------+ + + + [...] | | | | | [place] [address] | | | | | | [phone] | | | | | | | | +--------+ + + + + | 10/30/ | Office | Primary Care | Erika Ernst, | | | 2019 | Visit | | DO [address] | | | | | | [place] [address] | | | | | | [phone] | | | | | | | [...] [place] | | | | | | [address] | | | | | | [phone] | | | | | | | | +--------+ + + + + | 02/09/ | Office | Neurology | Dhaar, | | | 2019 | Visit | | DWAINE Ross [address] [place], | | | | | | [place] [address] | | | | | | [phone] | | | | | | | [...] cardiopulmonary process. JOB #: | | | [id number] Digitally Released by: Anjelica Bedolla Read By: [...] | | | | | JOB #: [id number] | | Digitally Released by: Anjelica Bedolla | | | | | | Read By: ANJELICA BEDOLLA MD | | Date: 12/30/2016 09:59 | | | + + documented in this encounter Visit Diagnoses Not on filedocumented in this encounter"
--- OUTSIDE RECORDS SUMMARY | ~2019-09-30 | XMS | Encounter Summary ---
Demographics + + + | Address | [address] | | | [place] [address] | + + + | Home Phone [...] Team Providers + +------+ + | Care Casting Machine Set Up Operator Name | Role | Phone | + +------+ + | Erika Ernst DO | PCP | | + +------+ + Reason for Visit + + + | Reason | Comments | + + + | Hypertension | Nurse only Blood pressure check | + + + Encounter Details +--------+ + + + + | Date | Type | Department | Care Team | Description | +--------+ + + + + | 09/02/ | Clinical | [place] [facility] | Jenise Benitez, | | | 2018 | Support | [facility] | [facility] [address] [facility] | | | | | MEDICAL CLINIC [address] | [place] [address] | | | | | [address] [place], | [phone] | | | | | [place] [address] | | | | | | [phone] | | | +--------+ + + + [...] +---------+ + + | Blood Pressure | 150/92 | 09/02/2019 9:26 AM | | | | | PST | | + +---------+ + + | Pulse | 88 | 09/02/2019 9:26 AM | | | | | PST | | + +---------+ + + | Temperature | - | - | | + +---------+ + + | Respiratory Rate | 16 | 09/02/2019 9:26 AM | | | | | PST | | + +---------+ + + | Oxygen Saturation | 99% | 09/02/2019 9:26 AM | | | | | PST [...] documented in this encounter Progress Notes Eden Brown LPN - 09/02/2019 9:15 AM PSTPatient came into the clinic for a blood pre ssure check today, BP was 150/92, O2 99, heart rate 88, resp 16. Patient states she has had high blood pressure, and states these are what they were since t he 29 of August. 142/79 155/100 She states then on the 31 of August she decied to take her BP on both arms, as follows are those results Right arm 194/104 Left arm 137/91 The right arm 167/99 Left arm 139/94. Patient states she checks her BP in the evening, and takes her prazosin in the PM 1 mg tabl et, and also takes her Ramipril in the AM 7.5 mg total. Patient informed that Dr. Ernst is out of the clinic until September 10 and this informat ion will be sent to Jenise Benitez who is covering for her today. Patient states understanding. Eden Brown LPN documented [...] | | | | | [place] [address] | | | | | | [phone] | | | | | | | | +--------+ + + + + | 10/30/ | Office | Primary Care | Erika Ernst, | | | 2019 | Visit | | DO [address] | | | | | | [place] [address] | | | | | | [phone] | | | | | | | [...] [place] | | | | | | [address] | | | | | | [phone] | | | | | | | | +--------+ + + + + | 02/09/ | Office | Neurology | Dhara, | | | 2019 | Visit | | DWAINE Ross [address] | | | | | [address] [place], | | | | | | [place] [address] | | | | | | [phone] | | | | | | | | +--------+ + + + + documented as of this encounter Visit Diagnoses Not on filedocumented in this encounter"
--- OUTSIDE RECORDS SUMMARY | ~2019-09-30 | XMS | Encounter Summary ---
Demographics + + + | Address | [address] | | | [place] [address] | + + + | Home Phone [...] Team Providers + +------+ + | Care Care Management Associate Name | Role | Phone | [...] | | | [address] [place], [place] | [place] [address] | | | | | [address] | | | | | | [phone] | (Fax) | | +--------+ + + [...] | 04/12/20 | | | (VITAMIN D3) 07855 | mouth Once a week | tablet [...] | | | | | [place] [address] | | | | | | [phone] | | | | | | | | +--------+ + + + + | 10/30/ | Office | Primary Care | Erika Ernst, | | | 2019 | Visit | | DO [address] | | | | | | [place] [address] | | | | | | [phone] | | | | | | | [...] [place] | | | | | | [address] | | | | | | [phone] | | | | | | | | +--------+ + + + + | 02/09/ | Office | Neurology | Dhara, | | | 2019 | Visit | | [place], [facility] [address] | | | | | | [address] [facility], | | | | | | [place] [address] | | | | | | [phone] | | | | | | | [...]
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
--- OUTSIDE RECORDS SUMMARY | ~2019-09-30 | XMS | Encounter Summary ---
Demographics + + + | Address | [address] | | | [place] [address] | + + + | Home Phone [...] Team Providers + +------+ + | Care Radiological Health Specialist Name | Role | Phone | [...] | [place], [place] | [place] [address] | | | | | [address] | [phone] | | | | | [phone] | | | +--------+ + + + [...] | | | | | [place] [address] | | | | | | [phone] | | | | | | | | +--------+ + + + + | 10/30/ | Office | Primary Care | Erika Ernst, | | | 2019 | Visit | | DO [address] [place] | | | | | | [place] [address] | | | | | | [phone] | | | | | | | [...] [place] | | | | | | [address] | | | | | | [phone] | | | | | | | | +--------+ + + + + | 02/09/ | Office | Neurology | Dhara, | | | 2019 | Visit | | DWA[address] Ross [address] | | | | | [address] [place], | | | | | | [place] [address] | | | | | | [phone] | | | | | | | | +--------+ + + + + documented as of this encounter Visit Diagnoses Not on filedocumented in this encounter"
--- OUTSIDE RECORDS SUMMARY | ~2019-09-30 | XMS | Encounter Summary ---
Demographics + + + | Address | [address] | | | [place] [address] | + + + | Home Phone [...] Providers + +------+ + | Care Crop Adjuster Name | Role | Phone | [...] [place] | | | | | | [address] | | | | | | [phone] | | | +--------+ + + + [...] | | | | | [place] [address] | | | | | | [phone] | | | | | | | | +--------+ + + + + | 01/29/ | Office | Primary Care | Erika Ernst, | | | 2019 | Visit | | DO [address] [place] | | | | | | [place] [address] | | | | | | [phone] | | | | | | | [...] [place] | | | | | | [address] | | | | | | [phone] | | | | | | | | +--------+ + + + + | 02/09/ | Office | Neurology | Dhara, | | | 2019 | Visit | | DWAINE Ross [address] | | | | [address] [place], | | | | | | [place] [address] | | | | | | [phone] | | | | | | | | +--------+ + + + + documented as of this encounter Visit Diagnoses Not on filedocumented in this encounter"
--- OUTSIDE RECORDS SUMMARY | ~2019-09-30 | XMS | Encounter Summary ---
Demographics + + + | Address | [address] | | | [place] [address] | + + + | Home Phone [...] Team Providers + +------+ + | Care Multimedia Author Name | Role | Phone | + [...] | | | of left | [place] [address] | [place] [address] | | | | | ankle, | Phone: | Phone: | | | | | initial | [phone] | [phone] | | | | | encounter | Fax: | Fax: | | | | | Procedures | [phone] | [phone] | | | | | PT TREAT [...] [address] [place] | [place] [address] | encounter (Primary | | | | [place], [place] | [phone] | Dx) | | | | [address] | | | | | | [phone] | Nick Barrios I, PT | | [...] might be different fro m the original. [facility] THER[facility] PT [address] [place] [address] Physical Therapy Daily Treatment Note Date: 09/21/2018 Patient Information Patient Name: Andera Suh Date of : 1990 Age: 28 [...] in favor of SL heel raise with INFECTION PREVENTION COORDINATOR. ONGOING: SLS on even surface 3x30 seconds [...] | | | | | [place] [address] | | | | | | [phone] | | | | | | | | +--------+ + + + + | 10/30/ | Office | Primary Care | Erika Ernst, | | | 2019 | Visit | | DO [address] [place] | | | | | | [place] [address] | | | | | | [phone] | | | | | | | [...] [place] | | | | | | [address] | | | | | | [phone] | | | | | | | | +--------+ + + + + | 02/09/ | Office | Neurology | Dhara, | | | 2019 | Visit | | DWA[address] Ross [address] [place], | | | | | | [place] [address] | | | | | | [phone] | | | | | | | | +--------+ + + + + documented as of this encounter Visit Diagnoses + + | Diagnosis | + + | Sprain of left ankle, subsequent encounter - Primary | + + documented in this encounter
--- OUTSIDE RECORDS SUMMARY | ~2019-09-30 | XMS | Encounter Summary ---
Demographics + + + | Address | [address] | | | [place] [address] | + + + | Home Phone [...] Providers + +------+ + | Care Heavy Repairer Name | Role | Phone | + [...] | [facility] | [place] [address] | | | | [address] [place], | [phone] | | | | | [place] [address] | | | | | | [phone] | | | +--------+ + + + [...] | | | | | [place] [address] | | | | | | [phone] | | | | | | | | +--------+ + + + + | 10/30/ | Office | Primary Care | Erika Ernst, | | | 2019 | Visit | | DO [address] [place] | | | | | | [place] [address] | | | | | | [phone] | | | | | | | [...] [place] | | | | | | [address] | | | | | | [phone] | | | | | | | | +--------+ + + + + | 02/09/ | Office | Neurology | Dhara, | | | 2019 | Visit | | [address]WA[address] | | [address] [place], | | | | | | [place] [address] | | | | | | [phone] | | | | | | | | +--------+ + + + + documented as of this encounter Visit Diagnoses Not on filedocumented in this encounter"
--- OUTSIDE RECORDS SUMMARY | ~2019-09-30 | XMS | Encounter Summary ---
Demographics + + + | Address | [address] | | | [place] [address] | + + + | Home Phone [...] Team Providers + +------+ + | Care Watch Repair Technician Name | Role | Phone | + +------+ + | Erika Ernst DO | PCP | | + +------+ + Reason for Visit +---------+ + | Reason | Comments | +---------+ + | Therapy | ? re: physical therapy | +---------+ + Encounter Details +--------+ + + + + | Date | Type | Department | Care Team | Description | +--------+ + + + + | 08/29/ | Telephone | [place] [facility] | Erika Ernst, | Therapy (? re: | | 2017 | | [facility] | DO [address] [place] | physical therapy) | | | | [facility] | [place] [address] | | | | | [address] [place], | [phone] | | | | | [place] [address] | | | | | | [phone] | | | +--------+ + + + [...] | | | | | [place] [address] | | | | | | [phone] | | | | | | | | +--------+ + + + + | 10/30/ | Office | Primary Care | Erika Ernst, | | | 2019 | Visit | | DO [address] [place] | | | | | | [place] [address] | | | | | | [phone] | | | | | | | [...] [place] | | | | | | [address] | | | | | | [phone] | | | | | | | | +--------+ + + + + | 02/09/ | Office | Neurology | Dhara, | | | 2020 | Visit | | [address] | | | | [address] [place], | | | | | | [place] [address] | | | | | | [phone] | | | | | | | | +--------+ + + + + documented as of this encounter Visit Diagnoses Not on filedocumented in this encounter"
--- OUTSIDE RECORDS SUMMARY | ~2019-09-30 | XMS | Encounter Summary ---
Demographics + + + | Address | [address] | | | [place] [address] | + + + | Home Phone [...] Team Providers + +------+ + | Care Shot Polisher Name | Role | Phone | [...] | | | | s (de | [place], [place] | [place] [address] | | | | | quervain) | [address] | Phone: | | | | | Pain in | Phone: | [phone] | | | | | right wrist | [phone] | Fax: | | | | | Procedures | Fax: | [phone] | | | | | OT TREAT | [phone] | | +--------+--------+ + + + + Encounter Details +--------+ + + + + | Date | Type | Department | Care Team | Description | +--------+ + + + + | 12/06/ | Hospital | [place] [facility] | Jeffrey Gandhi, | Radial styloid | | 2019 | Encounter | HOSPITAL THERAPY OT | [address] | tenosynovitis | | | | [address] [place] | [place] [address] | (Primary Dx); Right | | | | [place], [place] | [phone] | wrist pain | | | | [address] | | | | | | [phone] | Michela Azevedo, | | | | [...] | 11/26/19 | | | (VITAMIN D3) 23400 | mouth Once a week | tablet [...] encounter Progress Notes Michela Azevedo OT - 12/06/2018 5:46 PM PSTFormatting of this note might be different f rom the original. [facility] THER[facility] OT [address] [place] [address] Occupational Therapy Daily Treatment Note Date: 12/06/2018 Patient Information Patient Name: Andrea Suh Date of : 1990 Age: 28 y.o. History Encounter Diagnoses Code Name Primary? M65.4 Radial styloid tenosynovitis Yes M25.531 Right wrist pain Date of Onset: 07/20/2018 Referring Provider: Jeffrey Gandhi MD Objective Pain Assessment: Location: 5/10 mid dorsal wrist pre treatment, 4/10 post treatment "quite a bit better" Today's Treatment Patient Name: Andrea Suh/: 1990/ Start Time: 1643 Stop time: 1725 Duration: 42 minutes Timed Treatment Codes: 38 minutes # of OT Visits: 20.12 Visit Summary: S: Its about the same as it was at last session, a 5/10 and it continues wit h popping. Pt reports compliance with HEP to date. A: Palpation revealed hypermobility at th e mid dorsal wrist into extension. Tx session focused on decreasing pain and increasing wris t stability. Due to the recent increase in pain strengthening was modified and decreased to proprioceptive input and gentle loading with wrist neutral on tabletop with table slides on friction reduced surface, dart throwers. Pt tolerated with no increase in pain. Simultaneous e-stim and heat reduced pain from 5/10 to 4/10 although pt reports this is quite a bit of d ifference. Next Visit: check response to decreased strengthening demands with gentle loading and prop rioception at tabletop, 5' habilitation worker strengthening 1-2x/day light resistance, and second surgic al opinion? Patient/Caregiver Education Learner: Patient Readiness: Acceptance Method: Explanation, Demonstration Response: Verbalizes Understanding, Demonstrated Understanding Comment: HEP regressions due to increase in symptoms and recent potential reinjury of wrist Interventions HEP : TE (23 minutes): dart throwers x 15, gentle wrist neutral FA pronated loading and pro priceptive input on tabletop with friction reduced "scrubbing" motion, submaximal isometric extension, reduced habilitation worker strengthening to 5' x 1-2 a day with light putty, hold on wall pushu ps and heavy habilitation worker strengthening until symptoms normalize (pt education), pt agreeable to viktoria romario OT MODALITY 1: E-stim (15 minutes): premod, intensity level 9 over mid dorsal wrist simulta neous with moist heat. Pt displays normal tissue response with no adverse rxn to modality. R eports a reduction in pain with this modality. Assessment 11/29/2018 - PROGRESS REVIEW: Andrea has made significant functional gains during this repor ting period and is compliant with wrist and habilitation worker strengthening exercises. She does still hav e deficits in habilitation worker strength and wrist stability as well as pain with daily activities. Her j ob description may be changing which would decrease the physical demands of her work, making it more appropriate for her current status. She continues to benefit from Children'S Literature Professor apy to maximize her habilitation worker strength and wrist stability following this injury and return her t o prior level of function. 10/30/2018 - REASON FOR RE-CERTIFICATION: Andrea has received 12 Occupational Therapy treatme nts since 08/07/2018 following her right wrist surgery. She has regained full AROM of the rig ht wrist but continues to have right wrist, habilitation worker and pinch weakness and significant pain (3- [...] in 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, and habilitation worker and pinch weakness in the right hand [...] ices. Electronically signed by: Michela Azevedo OT, 12/06/2018 17:46 Patient Name: Andrea Suh/: 1990/ documented in [...] | | | | | [place] [address] | | | | | | [phone] | | | | | | | | +--------+ + + + + | 10/30/ | Office | Primary Care | Erika Ernst, | | | 2019 | Visit | | DO [address] [place] | | | | | | [place] [address] | | | | | | [phone] | | | | | | | [...] [place] | | | | | | [address] | | | | | | [phone] | | | | | | | | +--------+ + + + + | 02/09/ | Office | Neurology | Dhara, | | | 2019 | Visit | | [address] [place], | | | | | | [place] [address] | | | | | | [phone] | | | | | | | | +--------+ + + + + documented as of this encounter Visit Diagnoses + + | Diagnosis | + + | Radial styloid tenosynovitis - Primary | + + | Right wrist pain Pain in joint, forearm | + + documented in this encounter
--- OUTSIDE RECORDS SUMMARY | ~2019-09-30 | XMS | Encounter Summary ---
Demographics + + + | Address | [address] | | | [place] [address] | + + + | Home Phone [...] Team Providers + +------+ + | Care Application Developer Name | Role | Phone | [...] [place] | | | | | [address] | [address] | | | | | [phone] | [phone] | | | | | | | [...] | | | | | [place] [address] | | | | | | [phone] | | | | | | | | +--------+ + + + + | 10/30/ | Office | Primary Care | Erika Ernst, | | | 2019 | Visit | | DO [address] [place] | | | | | | [place] [address] | | | | | | [phone] | | | | | | | [...] [place] | | | | | | [address] | | | | | | [phone] | | | | | | | | +--------+ + + + + | 02/09/ | Office | Neurology | Dhara, | | | 2020 | Visit | | [address]WA[address] [place], | | | | | | [place] [address] | | | | | | [phone] | | | | | | | | +--------+ + + + + documented as of this encounter Visit Diagnoses Not on filedocumented in this encounter"
--- OUTSIDE RECORDS SUMMARY | ~2019-09-30 | XMS | Encounter Summary ---
Demographics + + + | Address | [address] | | | [place] [address] | + + + | Home Phone [...] Team Providers + +------+ + | Care Project Management Advisor Name | Role | Phone | [...] | | | | s (de | [place], [place] | [place] [address] | | | | | quervain) | [address] | Phone: | | | | | Pain in | Phone: | [phone] | | | | | right wrist | [phone] | Fax: | | | | | Procedures | Fax: | [phone] | | | | | OT TREAT | [phone] | | +--------+--------+ + + + + [...] | | [address] [place] | [place] [address] | wrist pain | | | | [place] | [phone] | | | | | [address] | | | | | | [phone] | Milla Gracia, OT | | +--------+ [...] Bella, OT - 08/20/2018 5:34 PM PST [facility] THERAP[facility] OT [address] [place] [address] Occupational Therapy Daily Treatment Note Date: 08/20/2018 [...] #4 OT INTERVENTION 2: TE (32 minutes): Rail Switch Operator with 3lb red ultigrip 3x10. Rolling hand [...] in 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, and vessel scrapper and pinch weakness i n the right [...] | | | | | [place] [address] | | | | | | [phone] | | | | | | | | +--------+ + + + + | 10/30/ | Office | Primary Care | Erika Ernst, | | | 2019 | Visit | | DO [address] [place] | | | | | | [place] [address] | | | | | | [phone] | | | | | | | [...] [place] | | | | | | [address] | | | | | | [phone] | | | | | | | | +--------+ + + + + | 02/09/ | Office | Neurology | Dhara, | | | 2019 | Visit | | [address] [place], | | | | | | [place] [address] | | | | | | [phone] | | | | | | | | +--------+ + + + + documented as of this encounter Visit Diagnoses + + | Diagnosis | + + | Radial styloid tenosynovitis | + + | Right wrist pain Pain in joint, forearm | + + documented in this encounter"
--- OUTSIDE RECORDS SUMMARY | ~2019-09-30 | XMS | Encounter Summary ---
Demographics + + + | Address | [address] | | | [place] [address] | + + + | Home Phone [...] Team Providers + +------+ + | Care Chaser Apprentice Name | Role | Phone | + +------+ + | Erika Ernst DO | PCP | | + +------+ + Encounter Details +--------+ + + + + | Date | Type | Department | Care Team | Description | +--------+ + + + + | 06/13/ | Orders Only | [facility] [facility] | Erika Ernst, | Iron deficiency | | 2019 | | [facility] | DO [address] | (Primary Dx); | | | | [facility] [address] | [facility] [place] [address] | Vitamin D | | | | [address] [place], | [phone] | deficiency; Thyroid | | | | [place] [address] | | disorder screening | | | | [phone] | | | +--------+ + + + [...] | | | | | [place] [address] | | | | | | [phone] | | | | | | | | +--------+ + + + + | 10/30/ | Office | Primary Care | Erika Ernst, | | | 2019 | Visit | | DO [address] [place] | | | | | | [place] [address] | | | | | | [phone] | | | | | | | [...] [place] | | | | | | [address] | | | | | | [phone] | | | | | | | | +--------+ + + + + | 02/09/ | Office | Neurology | Dhara, | | | 2019 | Visit | | [address] | [address] [place], | | | | | | [place] [address] | | | | | | [phone] | | | | | | | | +--------+ + + + + documented as of this encounter Procedures + +--------+ + + + | Procedure Name | Priori | Date/Time | Associated Diagnosis | Comments | | | ty | | | | + +--------+ + + + | VITAMIN D, | Routin | 06/17/2019 | Vitamin D | Results for this | | DEFICIENCY SCREEN | e | 9:29 AM | deficiency | procedure are in the | | (25-HYDROXY) | | PDT | | results section. | + +--------+ + + + documented in this encounter Results Vitamin D, Deficiency Screen (25-Hydroxy) (06/17/2019 9:29 AM PDT) + +-------+ + + + | Component | Value | Ref Range | Performed | Pathologist | | | | | At | Signature | + +-------+ + + + | Vitamin D, | 40 | 30 - 100 ng/mL | [place] [...] + + + | [facility] | [address] | [place] [address] | [phone] | | [facility] | | | | + + + + + TSH (06/17/2019 9:29 AM PDT) + + + + + + | Component | Value | Ref Range | Performed | Pathologist | | | | | At | Signature | + + + + + + | TSH | 4.25 (H) | 0.36 - 3.74 | [place] [...] | [address] | [place] [address] | [phone] | | [facility] | | | | | [facility] | | | | + + + + + Ferritin (06/17/2019 9:29 AM PDT) + +-------+ + + + | Component | Value | Ref Range | Performed | Pathologist | | | | | At | Signature | + +-------+ + + + | Ferritin | 11.3 | 6.2 - 137.0 | [place] | [...] + + | [facility] [facility] | [address] | [place] [address] | [phone] | | [facility] | | | | + + + + + Iron and Iron Binding Capacity (06/17/2019 9:29 AM PDT) + +--------+ + + + | Component | Value | Ref Range | Performed | Pathologist | | | | | At | Signature | + +--------+ + + + | Iron | 29 (L) | 50 - 170 ug/dL | [facility] | | | | [facility] | | | [facility] | | + +--------+ + + + | TIBC | 318 | 250 - 450 ug/dL | [place] [facility] | | | | [facility] | | | | [facility] | | + +--------+ + + + | Iron | 9 (L) | 15 - 50 % | [...] + + | [facility] | [address] | [place] [address] | [phone] | | [facility] | | | | + + + + + CBC with Differential (06/17/2019 9:29 AM PDT) + + + + + + | Component | Value | Ref Range | Performed | Pathologist | | | | | At | Signature | + + + + + + | WBC | 8.1 | 4.3 - 10.4 K/uL | [facility] | | | | | | [facility] | | | | [facility] | | | | | | [facility] | | + + + + + + | RBC | 3.91 (L) | 4.12 - 5.30 | [place] | | | | | M/uL | [facility] | [facility] | | | | | [facility] | | | | | | [facility] | | + + + + + + | Hemoglobin | 11.0 (L) | 12.4 - 15.7 | [place] | | | | | g/dL | [facility] | [facility] | | | | | [facility] | | | | | | [facility] | | + + + + + + | Hematocrit | 32.5 (L) | 37.7 - 47.0 % | [facility] | | | | | | [facility] | | | | | [facility] | | | | | | [facility] | | + + + + + + | MCV | 83.0 | 82.0 - 97.0 fL | [facility] | | | | | | [facility] | | | [facility] | | | | | [facility] | | + + + + + + | MCH | 28.1 | 27.1 - 32.3 pg | [facility] | | | | | | [facility] | [facility] | | | | [facility] | | | | | | [facility] | | + + + + + + | MCHC | 33.8 | 32.0 - 36.9 | [place] | | | | | g/dL | [facility] | | | | | [facility] | | | | | | [facility] | | + + + + + + | RDW-CV | 15.9 | 0.0 - 17.0 % | [place] [...] + + + + | MPV | 8.8 (L) | 9.4 - 12.3 fL | [facility] | | | | | | [facility] | | [facility] | | | | | [facility] | | + + + + + + | % | 56.5 | 42.0 - 76.0 % | [place] | | | Neutrophils | | | [facility] | | | [facility] | | | | | | [facility] | | | | | | [facility] | | + + + + + + | % | 36.9 | 20.0 - 40.0 % | [place] | | | Lymphocytes | | | [facility] | | | [facility] | | | | | | [facility] | | | | | | [facility] | | + + + + + + | % Monocytes | 5.5 | 3.0 - 13.0 % | [facility] [...] + + + + | Absolute | 4.60 | 2.50 - 8.50 | [facility] | | | Neutrophils | | K/uL | [facility] | [facility] | | | | | [facility] | | | | | | [facility] | | + + + + + + | Absolute | 3.00 | 1.00 - 3.80 | [place] | | | Lymphocytes | | K/uL | [facility] | | [facility] | | | | | | [facility] | | | | | | [facility] | | + + + + + + | Absolute | 0.40 [...] | + + + + + | [facility] | [address] | [place] [address] | [phone] | | [facility] | | | | | [facility] | | | | + + + + + documented in this encounter Visit Diagnoses + + | Diagnosis | + + | Iron deficiency - Primary Other disorders of iron metabolism | + + | Vitamin D deficiency Unspecified vitamin D deficiency | + + | Thyroid disorder screening Screening for thyroid disorder | + + documented in this encounter"
--- OUTSIDE RECORDS SUMMARY | ~2019-09-30 | XMS | Encounter Summary ---
Demographics + + + | Address | [address] | | | [place] [address] | + + + | Home Phone [...] Providers + +------+ + | Care Video Effects Editor Name | Role | Phone | [...] | | | [place], [place] | [id number] | | | | | [address] | | | | | | [phone] | | | +--------+ + + + [...] | Visit | | DO [address] [place] | | | | | | [place] [address] | | | | | | [phone] | | | | | | | | +--------+ + + + + | 10/30/ | Office | Primary Care | Erika Ernst, | | | 2019 | Visit | | DO [address] [facility] [place] | | | | | | [place] [address] | | | | | | [phone] | | | | | | | [...] [place] | | | | | | [address] | | | | | | [phone] | | | | | | | | +--------+ + + + + | 02/09/ | Office | Neurology | Dhara, | | | 2019 | Visit | | [address] [place], | | | | | | [place] [address] | | | | | | [phone] | | | | | | | | +--------+ + + + + documented as of this encounter Visit Diagnoses Not on filedocumented in this encounter"
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
--- OUTSIDE RECORDS SUMMARY | ~2019-09-30 | XMS | Encounter Summary ---
Demographics + + + | Address | [address] | | | [place] [address] | + + + | Home Phone [...] Team Providers + +------+ + | Care Electronic Drafter Name | Role | Phone | + [...] + + + + | 01/09/ | Telephone | [place] [facility] | Erika Ernst, | Medication Question | | 2019 | | [facility] | DO [address] | | | | | MEDICAL CLIN[facility] | [facility] [address] | | | | | [address] [facility], | [phone] | | | | | [place] [address] | | | | | | [phone] | | | +--------+ + + + [...] | | | | | [place] [address] | | | | | | [phone] | | | | | | | | +--------+ + + + + | 10/30/ | Office | Primary Care | Erika Ernst, | | | 2019 | Visit | | DO [address] [place] | | | | | | [place] [address] | | | | | | [phone] | | | | | | | | +--------+ + + + + | 11/07/ | Appointment | Nutrition | Janel Webster | | | 2019 | | | [place] | | +--------+ + + + + | 11/28/ | Office | Otolaryngology | Anthony Alvarado MD | | | 2019 | Visit | | [address] | | | | | | [place] | | | | | | [address] | | | | | | [phone] | | | | | | | | +--------+ + + + + | 02/09/ | Office | Neurology | Dhara, | | | 2019 | Visit | | [address]WA[address] | | | | | | [address] [place], | | | | | | [place] [address] | | | | | | [phone] | | | | | | | | +--------+ + + + + documented as of this encounter Visit Diagnoses Not on filedocumented in this encounter"
--- OUTSIDE RECORDS SUMMARY | ~2019-09-30 | XMS | Encounter Summary ---
Demographics + + + | Address | [address] | | | [place] [address] | + + + | Home Phone [...] Team Providers + +------+ + | Care Section Leader And Machine Setter Name | Role | Phone | [...] | | | to excess | [place] [address] | [place], [place] | | | | | calories | Phone: | [phone] | | | | | without | [phone] | Phone: | | | | | serious | Fax: | [phone] | | | | | comorbidity | [phone] | Fax: | | | | | with body | | [phone] | | | | | mass index [...] | | | | | | | [facility] | | | | | | [...] + | 05/14/ | Hospital | [place] [facility] | Erika Ernst, | Essential | | 2019 | Encounter | HOSPITAL NUTRITION | DO [address] | hypertension; Morbid | | | | SERVICES [address] | [place] [address] | obesity ([facility]); Body | | | | [place] | [phone] | mass index | | | | [address] | | 50.0-59.9, adult | | | | [phone] | Janel Webster, | ([facility]); Dietary | | | | | RD [...] 60 vial | 0 | 04/21/20 | 08/13/ | | mL nebulizer | [...] | 04/12/20 | | | (VITAMIN D3) [address]7834 | mouth Once a week | tablet [...] on the go and travels frequently between [place] and [facility] so she often has to eat dinner [...] | | | | | [place] [address] | | | | | | [phone] | | | | | | | | +--------+ + + + + | 10/30/ | Office | Primary Care | Erika Ernst, | | | 2019 | Visit | | DO [address] [place] | | | | | | [place] [address] | | | | | | [phone] | | | | | | | [...] [place] | | | | | | [address] | | | | | | [phone] | | | | | | | | +--------+ + + + + | 02/09/ | Office | Neurology | Dhara, | | | 2019 | Visit | | [address] | | | | | | [address] [place], | | | | | | [place] [address] | | | | | | [phone] | | | | | | | | +--------+ + + + + + + +--------+ + + | Name | Type | Priori | Associated Diagnoses | Order Schedule | | | | ty | | | + + +--------+ + + | * [place] [facility] | Outpatient | Routin | Class [...] | | | | 59.9 in adult ([facility]) | | | | | | Essential | | | | | | hypertension | | + + +--------+ + + documented as of this encounter Visit Diagnoses + + | Diagnosis | + + | Essential hypertension Unspecified essential hypertension | + + | Morbid obesity ([facility]) Morbid obesity | + + | Body mass index 50.0-59.9, adult (HCC) Body Mass Index 50.0-59.9, adult | + + | Dietary counseling and surveillance Dietary surveillance and counseling | + + documented in this encounter"
--- OUTSIDE RECORDS SUMMARY | ~2019-09-30 | XMS | Encounter Summary ---
Demographics + + + | Address | [address] | | | [place] [address] | + + + | Home Phone [...] Team Providers + +------+ + | Care Resource Recovery Engineer Name | Role | Phone | [...] | 2019 | | HOSPITAL EMERGENCY | SUBACUTE NURSE [address] | without hematuria | | | | CENTER [address] | [place] | (Primary Dx); | | | | [place] | [address] | Vomiting, | | | | [address] | | intractability of | | | | [phone] | | vomiting not | | | [...] Care Everywhere.Urinary Tract I nfections (UTIs), Understanding (Czech)documented in this encounter Medications at Time of [...] | | | | | | ([place]) | | | | | | [...] | | | | | [place] [address] | | | | | | [phone] | | | | | | | | +--------+ + + + + | 10/30/ | Office | Primary Care | Erika Ernst, | | | 2019 | Visit | | DO [address] [place] | | | | | | [place] [address] | | | | | | [phone] | | | | | | | [...] [place] | | | | | | [address] | | | | | | [phone] | | | | | | | | +--------+ + + + + | 02/09/ | Office | Neurology | Dhara, | | | 2019 | Visit | | [address] | | | | | | 4TH [facility], | | | | | | [place] [address] | | | | | | [phone] | | | | | | | [...] + + | [place] [facility] | [address] | [place] [address] | [phone] | | HOSPITAL [facility]ORY | | | [...] - 1.030 | [place] | | | Ray | | | [facility] | | | [...] + + + | WBC UA | 10 - 20 (A) | <=5 /HPF | [place] | | | | | | [facility] | | | | [facility] | | | | | | LABORATORY | | + + + + + + | RBC UA | 0-2 | <=5 /HPF | [place] | | | | | | [facility] | | | | | | [facility] | | | | | | LABORATORY | | + + + + + + | SQUAMOUS | Many (A) | None Seen /LPF | [place] | | | EPITHELIAL | | | [facility] | | | [facility] | | | HOSPITAL | | | | | | LABORATORY | | + + + + + + | BACTERIA UA | Many (A) | None Seen /HPF | [place] | | | | | | [facility] | | | | [facility] | | | | | | LABORATORY | | + + + + + + | MUCUS UA | Few (A) | None seen /LPF | [place] | | | | | | [facility] | | | | [facility] | | | | | | LABORATORY | | + + + + + + | HYALINE | Few (A) | None Seen /LPF | [place] | | | CASTS UA | | | [facility] | | | | | | [facility]OSP[facility] | | | | | | LABORATORY | | + + + + + + | URINE | Urine Culture Set Up | | [place] | | | COMMENT | | | [facility] | | | [...] + + | [place] [facility] | [address] | [place] [address] | [phone] | | HOSPITAL LAB[facility]ORY | | | [...] + + | [place] [facility] | [address] | [place] [address] | [phone] | | HOSPITAL LAB[facility]ORY | | | [...] + + | [place] [facility] | [address] | [place] [address] | [phone] | | HOSPITAL LAB[facility]ORY | | | [...] | mL/min/1.73m2 | [facility] | | | NIGERIAN | RATE,ESTIMATED | | HOSPITAL | | | | mL/min/1.69p1Fofb than | | LABORATORY | | | [...] + + | [place] [facility] | [address] | [place] [address] | [phone] | | HOSPITAL LAB[facility]ORY | | | [...] + + | [place] [facility] | [address] | [place] [address] | [phone] | | HOSPITAL LAB[facility]ORY | | | [...] | | | | Itzel 08/22/19 at 2, Dispense | | | | | | [...]
--- OUTSIDE RECORDS SUMMARY | ~2019-09-30 | XMS | Encounter Summary ---
Demographics + + + | Address | [address] | | | [place] [address] | + + + | Home Phone [...] Team Providers + +------+ + | Care Crm Analyst Name | Role | Phone | [...] of | | 2019 | Visit | [facility] | BULK STATION OPERATOR [address] | intermittent asthma, | | | | [facility] [address] | [place] [address] | unspecified asthma | | | | [address] [place], | [phone] | severity (Primary | | | | [place] [address] | | Dx) | | | | [phone] | | | +--------+---------+ + + + [...] more than every 4 hours, contact your [facility] provider or seek immediate medical attention. [...] turning echevarria or blue Date Last Reviewed: 01/30/201719993773-[address] [employer] [place] [address], [place] [address]. All [facility] ts reserved. This information is not intended [...] | | 2018 | Visit | | [address] | | | | | | [place] [address] | | | | | | [phone] | | | | | | | | +--------+ + + + + | 10/30/ | Office | Primary Care | Erika Ernst, | | | 2019 | Visit | | DO [address] [place] | | | | | | [place] [address] | | | | | | [phone] | | | | | | | | +--------+ + + + + | 11/07/ | Appointment | Nutrition | Janel Webster | | 2019 | | | [place] | | +--------+ + + + + | 11/28/ | Office | Otolaryngology | Anthnoy Alvarado MD | | 2019 | Visit | | [address] | | | | | | [place], [place] | | | | | | [address] | | | | | | [phone] | | | | | | | | +--------+ + + + + | 02/09/ | Office | Neurology | Dhara, | | | 2019 | Visit | | [address] | | | | | | [address] [place], | | | | | | [place] [address] | | | | | | [phone] | | | | | | | [...]
--- OUTSIDE RECORDS SUMMARY | ~2019-09-30 | XMS | Encounter Summary ---
Demographics + + + | Address | [address] | | | [place] [address] | + + + | Home Phone [...] Providers + +------+ + | Care Computer Network Specialist Name | Role | Phone | [...] | DO [address] [place] | Workmans Comp) | | | | MEDICAL CLINIC [address] | [place] [address] | | | | | [address] [place], | [phone] | | | | | [place] [address] | | | | | | [phone] | | | +--------+ + + + [...] | | | | | [place] [address] | | | | | | [phone] | | | | | | | | +--------+ + + + + | 10/30/ | Office | Primary Care | Erika Ernst, | | | 2019 | Visit | | DO [address] [place] | | | | | | [place] [address] | | | | | | [phone] | | | | | | | | +--------+ + + + + | 11/07/ | Appointment | Nutrition | Janel Webster | | | 2019 | | | [place] | | +--------+ + + + + | 11/28/ | Office | Otolaryngology | Anthony Alavrado MD | | 2019 | Visit | | [address] | | | | | | [place] | | | | | | [address] | | | | | | [phone] | | | | | | | | +--------+ + + + + | 02/09/ | Office | Neurology | Dhara, | | | 2020 | Visit | | [address] | | | | | | [address] [place], | | | | | | [place] [address] | | | | | | [phone] | | | | | | | | +--------+ + + + + documented as of this encounter Visit Diagnoses Not on filedocumented in this encounter"
--- OUTSIDE RECORDS SUMMARY | ~2019-09-30 | XMS | Encounter Summary ---
Demographics + + + | Address | [address] | | | [place] [address] | + + + | Home Phone [...] Team Providers + +------+ + | Care Livestock Feeder Name | Role | Phone | [...] of | | 2019 | Visit | [facility] | PETS SALESPERSON-DRUM SANDER OFFBEAR[address] | head and neck | | | | [facility] [address] | [address] | | | | | [address] [place], | [place] [address] | | | | | [place] [address] | [phone] | | | | | [phone] | | | | | | | Brandi Pitts, | | | | | | DO [address] | | | | | | [place] [address] | | | | | | [phone] | | | | | | | [...] present. Entered by Marissa Bautista CNA 2, [facility], acting as scribe for Dr. Hong DO The documentation recorded by the scribe accurately reflects the service I personally perfo rmed and the decisions made by me. Electronically signed by: Brandi Pitts DO 04/17/2019 7:54 Note: Part of this report was transcribed using voice recognition software. Every effort wa s made to ensure accuracy. However, inadvertent computerized security public safety officer errors may be pre sent. documented in [...] | | | | | | [place] [address] | | | | | | [phone] | | | | | | | | +--------+ + + + + | 10/30/ | Office | Primary Care | Erika Ernst, | | | 2019 | Visit | | DO [address] [place] | | | | | | [place] [address] | | | | | | [phone] | | | | | | | [...] [place] | | | | | | [address] | | | | | | [phone] | | | | | | | | +--------+ + + + + | 02/09/ | Office | Neurology | Dhara, | | | 2019 | Visit | | [address] | | | | | | [address] [place], | | | | | | [place] [address] | | | | | | [phone] | | | | | | | | +--------+ + + + + documented as of this encounter Visit Diagnoses + + | Diagnosis | + + | Lymphadenopathy of head and neck | + + documented in this encounter"
--- OUTSIDE RECORDS SUMMARY | ~2019-09-30 | XMS | Encounter Summary ---
Demographics + + + | Address | [address] | | | [place] [address] | + + + | Home Phone [...] Providers + +------+ + | Care Credit Card Associate Name | Role | Phone | [...] Refill | | 2018 | | [facility] | DO [address] | | | | | MEDICAL CLINIC [address] | [place] [address] | | | | | [address] [place], | [phone] | | | | | [place] [address] | | | | | | [phone] | | | +--------+--------+ + + + [...] | | | | | [place] [address] | | | | | | [phone] | | | | | | | | +--------+ + + + + | 10/30/ | Office | Primary Care | Erika Ernst, | | | 2019 | Visit | | DO [address] [place] | | | | | | [place] [address] | | | | | | [phone] | | | | | | | [...] [place] | | | | | | [address] | | | | | | [phone] | | | | | | | | +--------+ + + + + | 02/09/ | Office | Neurology | Dhara, | | | 2019 | Visit | | [address] | | | | | | [address] [place], | | | | | | [place] [address] | | | | | | [phone] | | | | | | | | +--------+ + + + + documented as of this encounter Visit Diagnoses + + | Diagnosis | + + | Depression, unspecified depression type - Primary | + + documented in this encounter"
--- OUTSIDE RECORDS SUMMARY | ~2019-09-30 | XMS | Encounter Summary ---
Demographics + + + | Address | [address] | | | [place] [address] | + + + | Home Phone [...] Team Providers + +------+ + | Care Photogrammetric Stereo Compiler Name | Role | Phone | + +------+ + PCP | Unavailable | + +------+ + Encounter Details +--------+ + + + + | Date | Type | Department | Care Team | Description | +--------+ + + + + | [facility] Denise Mcgregor | | | 2016 | Encounter | [facility] | G, PEDIATRIC PSYCHIATRIST [address] | | | | | MEDICAL CLIN[facility] | [facility] [place] | | | | | [address] [facility], | [address] | | | | | [place] [address] | [phone] | | | | | [phone] | | | +--------+ + + + [...] | | | | | [place] [address] | | | | | | [phone] | | | | | | | | +--------+ + + + + | 10/30/ | Office | Primary Care | Erika Ernst, | | | 2019 | Visit | | DO [address] [place] | | | | | | [place] [address] | | | | | | [phone] | | | | | | | [...] [place] | | | | | | [address] | | | | | | [phone] | | | | | | | | +--------+ + + + + | 02/09/ | Office | Neurology | Dhara, | | | 2019 | Visit | | [address] | | | | | | [address] [place], | | | | | | [place] [address] | | | | | | [phone] | | | | | | | | +--------+ + + + + documented as of this encounter Visit Diagnoses Not on filedocumented in this encounter"
--- OUTSIDE RECORDS SUMMARY | ~2019-09-30 | XMS | Encounter Summary ---
Demographics + + + | Address | [address] | | | [place] [address] | + + + | Home Phone [...] Providers + +------+ + | Care Supervisor Word Processing Name | Role | Phone | + [...] [place], [place] | | | | | [address] | [address] | | | | | [phone] | [phone] | | | | | | | [...] | 04/12/20 | | | (VITAMIN D3) 87463 | mouth Once a week | tablet [...] | | | | | [place] [address] | | | | | | [phone] | | | | | | | | +--------+ + + + + | 10/30/ | Office | Primary Care | Erika Ernst, | | | 2019 | Visit | | DO [address] [place] | | | | | | [place] [address] | | | | | | [phone] | | | | | | | [...] [place] | | | | | | [address] | | | | | | [phone] | | | | | | | | +--------+ + + + + | 02/09/ | Office | Neurology | Dhara, | | | 2019 | Visit | | [address] | | | | | | [address] [place], | | | | | | [place] [address] | | | | | | [phone] | | | | | | | [...]
--- OUTSIDE RECORDS SUMMARY | ~2019-09-30 | XMS | Encounter Summary ---
Demographics + + + | Address | [address] | | | [place] [address] | + + + | Home Phone [...] Providers + +------+ + | Care Home Theater Experience Expert Name | Role | Phone | + +------+ + PCP | Unavailable | + +------+ + Encounter Details +--------+ + + + + | Date | Type | Department | Care Team | Description | +--------+ + + + + | 05/03/ | [facility] | [place] [facility] | Erika Ernst, | | | 2017 | Encounter | [facility] | DO [address] | | | | | MEDICAL CLINIC [address] | [place] [address] | | | | | [address] [place], | [phone] | | | | | [place] [address] | | | | | | [phone] | | | +--------+ + + + [...] | | | | | [place] [address] | | | | | | [phone] | | | | | | | | +--------+ + + + + | 10/30/ | Office | Primary Care | Erika Ernst, | | | 2019 | Visit | | DO [address] [place] | | | | | | [place] [address] | | | | | | [phone] | | | | | | | [...] [place] | | | | | | [address] | | | | | | [phone] | | | | | | | | +--------+ + + + + | 02/09/ | Office | Neurology | Dhara, | | | 2020 | Visit | | [address] | | | | | | [address] [place], | | | | | | [place] [address] | | | | | | [phone] | | | | | | | | +--------+ + + + + documented as of this encounter Visit Diagnoses Not on filedocumented in this encounter"
--- OUTSIDE RECORDS SUMMARY | ~2019-09-30 | XMS | Encounter Summary ---
Demographics + + + | Address | [address] | | | [place] [address] | + + + | Home Phone [...] Team Providers + +------+ + | Care Customs Verifier Name | Role | Phone | + [...] | [facility] [address] | | | | | [address] [place], | [phone] | | | | | [place] [address] | | | | | | [phone] | | | +--------+ + + + [...] | | | | | [place] [address] | | | | | | [phone] | | | | | | | | +--------+ + + + + | 10/30/ | Office | Primary Care | Erika Ernst, | | | 2019 | Visit | | DO [address] [place] | | | | | | [place] [address] | | | | | | [phone] | | | | | | | [...] [place] | | | | | | [address] | | | | | | [phone] | | | | | | | | +--------+ + + + + | 02/09/ | Office | Neurology | Dhara, | | | 2020 | Visit | | [address] | | | | | | [address] [place], | | | | | | [place] [address] | | | | | | [phone] | | | | | | | | +--------+ + + + + documented as of this encounter Visit Diagnoses Not on filedocumented in this encounter"
--- OUTSIDE RECORDS SUMMARY | ~2019-09-30 | XMS | Encounter Summary ---
Demographics + + + | Address | [address] | | | [place] [address] | + + + | Home Phone [...] Team Providers + +------+ + | Care Clinic Manager Name | Role | Phone | + +------+ + | Erika Ernst DO | PCP | | + +------+ + Reason for Visit +---------+ + | Reason | Comments | +---------+ + | Blister | | +---------+ + Encounter Details +--------+ + + + + | Date | Type | Department | Care Team | Description | +--------+ + + + + | 07/22/ | Telephone | [place] [facility] | Erika Ernst, | Tacho | | 2019 | | [facility] | DO [address] | | | | | MEDICAL CLINIC [address] | [place] [address] | | | | | [address] [place], | [phone] | | | | | [place] [address] | | | | | | [phone] | | | +--------+ + + + [...] | | | | | [place] [address] | | | | | | [phone] | | | | | | | | +--------+ + + + + | 10/30/ | Office | Primary Care | Erika Ernst, | | | 2019 | Visit | | DO [address] [place] | | | | | | [place] [address] | | | | | | [phone] | | | | | | | [...] [place] | | | | | | [address] | | | | | | [phone] | | | | | | | | +--------+ + + + + | 02/09/ | Office | Neurology | Dhara, | | | 2020 | Visit | | [address] | | | | | | [address] [place], | | | | | | [place] [address] | | | | | | [phone] | | | | | | | | +--------+ + + + + documented as of this encounter Visit Diagnoses Not on filedocumented in this encounter"
--- OUTSIDE RECORDS SUMMARY | ~2019-09-30 | XMS | Encounter Summary ---
Demographics + + + | Address | [address] | | | [place] [address] | + + + | Home Phone [...] Providers + +------+ + | Care Rn International Name | Role | Phone | + +------+ + | Erika Ernst DO | PCP | | + +------+ + Reason for Visit + + + | Reason | Comments | + + + | Post-op Exam | WC 11wk PO R ECU | + + + Encounter Details +--------+---------+ + + + | Date | Type | Department | Care Team | Description | +--------+---------+ + + + | 06/04/ | Office | [facility] | Inocencio Noriega | S/P right ECU | | 2019 | Visit | [facility] | MD [address] | tenosynovectomy on | | | | [address] [place] [address] | [address] | 03/20/19 (Primary | | | | [place], [place] | [place] [address] | Dx); Right wrist | | | | [address] | [phone] | pain | | | | [phone] | | | +--------+---------+ + + + [...] + + + | Blood Pressure | 141/86 | 06/04/2019 3:05 PM | | | | | PDT | | + + + + + | Pulse | 90 | 06/04/2019 3:05 PM | | | | | PDT | | + + + + + | Temperature | 36.8 C (98.2 F) | 06/04/2019 3:05 PM | | | | | PDT | | + + + + + | Respiratory Rate | 20 | 06/04/2019 3:05 PM | | | | | PDT | | + + + + + | Oxygen Saturation | 99% | 06/04/2019 3:05 PM | | | | | PDT [...] encounter Progress Notes Inocencio Noriega MD - 06/04/2019 3:15 PM PDT Date of Service: 06/04/2019 Provider: Inocencio Noriega Pt. Name/Age/: Andrea Suh 29 y.o. 1990 Date of Evalutaion: 06/04/2019 FOLLOW UP HAND SURGERY VISIT CHIEF COMPLAINT: Chief Complaint Patient presents with Post-op Exam WC 11wk PO R ECU HISTORY OF PRESENT ILLNESS Andrea Suh is a 29 y.o. year old right hand dominant female that follows up in the office today for her right wrist. She is now almost 3 months after right wrist ECU tenosyno vectomy. Patient reports some mild continued pain at the right dorsal wrist. She's been in therapy and making progress. She has not been using the hand and wrist very much at work. Past Medical History: Diagnosis Date Allergic rhinitis Anemia Asthma Dysmenorrhea Hypertension Hypothyroid Iron deficiency Obesity ALVAREZ (obstructive sleep apnea) Periodontal disease, unspecified TMJ pain dysfunction syndrome Past Surgical History: Procedure Laterality Date EYE SURGERY HAND TENDON SURGERY Right 03/20/2019 Procedure: REPAIR E.C.U. Tendon; Surgeon: Inocencio Noriega MD; Location: [facility] SURGERY RIGHT KIDNER PROCEDURE 01/20/2016 Surgeon: Fani Mahajan MD; Location: [facility] TENDON RELEASE TONSILLECTOMY WISDOM TOOTH EXTRACTION Family History Problem Relation Age of Onset Other (see comment) Mother gallbladder disease Diabetes Mother Heart disease Mother Hypertension Father Other (see comment) Father arrhymthmia Breast cancer Sister Breast cancer Maternal Grandmother Heart attack Maternal Aunt MS Hypertension Maternal Uncle Social History Tobacco Use [...] Negative. Musculoskeletal: Positive for joint pain. Neurological: Negative. PHYSICAL EXAM Vitals: 06/04/19 1505 BP: 141/86 Pulse: 90 Resp: 20 Temp: 36.8 C (98.2 F) PainSc: 7 PainLoc: Wrist No acute distress. Alert and oriented to [...] . All fingers are warm and well-perfused. ASSESSMENT AND PLAN Andrea Suh is a 29 y.o. year old right hand dominant female 11 weeks after right EC U tenosynovectomy. PLAN: Andrea Suh seen in the office today for her right wrist. Her wrist feels very stab le and asymptomatic on examination. She reports continued pain dorsally. We will advance h er at work with 6 hours use of the right hand. 3 hours in the morning and 3 hours in the af ternoon. Light duty with no heavy lifting of the right wrist. Patient to follow up with me in 4 weeks for reevaluation. Electronically signed by: Inocencio Noriega MD 06/04/2019 15:18 CC: Erika Ernst DO No ref. provider found Note: Part of this report was transcribed using voice recognition software. Every effort wa s made to ensure accuracy. However, inadvertent computerized rn outpatient surgery errors may be pre sent. documented in [...] | | | | | [place], [place] [address] | | | | | | [phone] | | | | | | | | +--------+ + + + + | 10/30/ | Office | Primary Care | Erika Ernst, | | | 2019 | Visit | | DO [address] [place] | | | | | | [place] [address] | | | | | | [phone] | | | | | | | [...] [place] | | | | | | [address] | | | | | | [phone] | | | | | | | | +--------+ + + + + | 02/09/ | Office | Neurology | Dhara, | | | 2019 | Visit | | [address] | | | | | | [address] [facility], | | | | | | [place] [address] | | | | | | [phone] | | | | | | | | +--------+ + + + + documented as of this encounter Visit Diagnoses + + | Diagnosis | + + | S/P right ECU tenosynovectomy on 03/20/19 - Primary | + + | Right wrist pain Pain in joint, forearm | + + documented in this encounter"
--- OUTSIDE RECORDS SUMMARY | ~2019-09-30 | XMS | Encounter Summary ---
Demographics + + + | Address | [address] | | | [place] [address] | + + + | Home Phone [...] Team Providers + +------+ + | Care Bricklayer Tender Name | Role | Phone | [...] | | | of left | [place] [address] | [place] [address] | | | | | ankle, | Phone: | Phone: | | | | | initial | [phone] | [phone] | | | | | encounter | Fax: | Fax: | | | | | Procedures | [phone] | [phone] | | | | | PT TREAT [...] [address] [place] | [place] [address] | encounter (Primary | | | | [place], [place] | [phone] | Dx) | | | | [address] | | | | | | [phone] | Nick Barrios I, PT | | [...] original. [facility] [address] [place] [address] Physical Therapy Daily Treatment Note Date: 09/14/2018 [...] in favor of SL heel raise with GAS WELDER. ONGOING: SLS on even surface 3x30 seconds [...] SLS eyes closed 1x30 seconds, 2x1 minute GAS WELDER grab bar, Oanh disc SLS 1x30 seconds, 1x1 minute GAS WELDER grab bar as needed, Tandem gait forward/backwar [...] | | | | | [place] [address] | | | | | | [phone] | | | | | | | | +--------+ + + + + | 10/30/ | Office | Primary Care | Erika Ernst, | | | 2019 | Visit | | DO [address] [place] | | | | | | [place] [address] | | | | | | [phone] | | | | | | | [...] [place] | | | | | | [address] | | | | | | [phone] | | | | | | | | +--------+ + + + + | 02/09/ | Office | Neurology | Dhara, | | | 2019 | Visit | | [address]WA[address] Ross [address] | | [address] [place], | | | | | | [place] [address] | | | | | | [phone] | | | | | | | | +--------+ + + + + documented as of this encounter Visit Diagnoses + + | Diagnosis | + + | Sprain of left ankle, subsequent encounter - Primary | + + documented in this encounter
--- OUTSIDE RECORDS SUMMARY | ~2019-09-30 | XMS | Encounter Summary ---
Demographics + + + | Address | [address] | | | [place] [address] | + + + | Home Phone [...] Team Providers + +------+ + | Care Personnel Monitor Name | Role | Phone | + [...] | | | of left | [place] [address] | [place] [address] | | | | | ankle, | Phone: | Phone: | | | | | initial | [phone] | [phone] | | | | | encounter | Fax: | Fax: | | | | | Procedures | [phone] | [phone] | | | | | PT EVAL AND | | | | | | | TREAT | | | +--------+ + + + + + Encounter Details +--------+ + + + + | Date | Type | Department | Care Team | Description | +--------+ + + + + | 08/07/ | Hospital | [place] [facility] | Erika Ernst, | Sprain of left | | 2017 | Encounter | [facility] PT | DO [address] [place] | ankle, subsequent | | | | [address] [place] | [place] [address] | encounter (Primary | | | | [place], [place] | [phone] | Dx); Fall on same | | | | [address] | | level from slipping, | | | | [phone] | Nick Barrios I, PT | subsequent | | | | | [...] Progress Notes Nick Barrios I, PT - 08/08/2018 7:57 AM PSTFormatting of this note might be different fro m the original. [facility] [address] [place] [address] Physical Therapy Daily Treatment Note Date: 08/07/2018 Patient Information Patient Name: Andrea Suh Date of : 1990 Age: 28 y.o. Encounter Diagnoses Code Name Primary? S93.402D Sprain of left ankle, subsequent encounter Yes W01.0XXD Fall on same level from slipping, subsequent encounter Date of Onset: 06/11/2018 Referring Provider: Erika Ernst DO Objective Pain Assessment: Pain Rating Pre Assessment: 4 Pain Rating Post Assessment: 4 Location: Denies pain in L ankle; pain is in right wrist following surgery Today's Treatment Patient Name: Andrea Suh/: 1990/ Start Time: 1500 Stop time: 1545 Duration: 45 minutes Timed Treatment Codes: 45 minutes # of PT Visits to Date: 7 Visit Summary: S: Patient states that her L ankle feels a little bit sore today on the medi al side, she also felt sore in the same area after last session. She states that her exercis es have been going okay and she has been compliant. A: Patient tolerates LE strengthening an d balance exercises well, but continues to require MARKETING TRAFFIC COORDINATOR with use of hip and ankle strategies during SL and DL balance exercises. Patient would benefit from hip and toe strengthening goi ng forward to continue improvement of balance and protectiion of ankles for functional activ ities. Patient reported pain during eversion with red TB today. Next Visit Information: progress LE strength with leg press, step ups; balance with tandem ambulation eyes closed airex exercises. Hip and toe strengthening and motor control. ADD NAKIA ONOFRE PROGRAM TO HEP Therapy Interventions HEP: NEW: Tandem stance 2x60 second holds each foot position 1x/day // ONGOING: Using RTB i n door jam rather than holding onto with hands. Discontinue PF with theraband in favor of SL heel raise with MARKETING TRAFFIC COORDINATOR. ONGOING: SLS on even surface 3x30 seconds 1x/day // Double leg heel r aise 3x10 3x/wk // forward/lateral step ups on 8" step 3x10 3x/wk each // standing achilles stretch 3x30 seconds 1x/day. // 4 way ankle PRE yellow theraband 3x10 each direction 3x/wk. // Ankle inversion/eversion 3x10 progressing to 20 1x/day // ankle ABC's 3x/day. // Ankle pu mps 3x10 progressing to 20 repetitions 1x/day // ankle circles 3x10 progressing to 20 repeti tions each direction 1x/day PT INTERVENTION 1: TE - (30 minutes) Recumbent bike x8' for ankle mobility and increased ci rculation. // RTB DF, inv, ev (YTB) x20 each // DL heel raise 2x20 // DBL leg press 1x15 40 lbs., 1x15 100 lbs, 1x15 110 lbs // additional time required for rest between exercises PT INTERVENTION 2: NMR (15 minutes) SL stance on airex with MARKETING TRAFFIC COORDINATOR 3x30 sec eyes open/closed e ach // Tandem stance 2x1 minute each foot position MARKETING TRAFFIC COORDINATOR // DL stance on round bosu 2x1 minute each eyes open/closed MARKETING TRAFFIC COORDINATOR // additional time required for rest between exercises. Assessment Rehabilitation potential: Patient demonstrates good potential [...] Goal 4 Status: Ongoing; pain rated at 0/10 today 08/07/18 Electronically signed by: Nick Barrios, PT, 08/08/2018 7:57 Patient Name: Andrea King Angeli/: 1990/ documented [...] | | | | | [place] [address] | | | | | | [phone] | | | | | | | | +--------+ + + + + | 10/30/ | Office | Primary Care | Erika Ernst, | | | 2019 | Visit | | DO [address] [place] | | | | | | [place] [address] | | | | | | [phone] | | | | | | | [...] [place] | | | | | | [address] | | | | | | [phone] | | | | | | | | +--------+ + + + + | 02/09/ | Office | Neurology | Dhara, | | | 2019 | Visit | | [address]WA[address] Ross [address] [place], | | | | | | [place] [address] | | | | | | [phone] | | | | | | | | +--------+ + + + + documented as of this encounter Visit Diagnoses + + | Diagnosis | + + | Sprain of left ankle, subsequent encounter - Primary | + + | Fall on same level from slipping, subsequent encounter | + + documented in this encounter
--- OUTSIDE RECORDS SUMMARY | ~2019-09-30 | XMS | Encounter Summary ---
Demographics + + + | Address | [address] | | | [place] [address] | + + + | Home Phone [...] Providers + +------+ + | Care Service Delivery Manager Name | Role | Phone | [...] + + + + | 06/28/ | Telephone | [place] [facility] | HuertaVeronica, | Lab Results | | 2017 | | [facility] | ACTUARIAL MANAGER | | | | | [facility] [address] | | | | | | [address] [facility] [place], | | | | | | [place] [address] | | | | | | [phone] | | | +--------+ + + + [...] | | | | | | [place] [address] | | | | | | [phone] | | | | | | | | +--------+ + + + + | 10/30/ | Office | Primary Care | Erika Ernst, | | | 2019 | Visit | | DO [address] [place] | | | | | | [place] [address] | | | | | | [phone] | | | | | | | [...] [place] | | | | | | [address] | | | | | | [phone] | | | | | | | | +--------+ + + + + | 02/09/ | Office | Neurology | Dhara, | | | 2019 | Visit | | [address]WA[address] Ross [address] [place], | | | | | | [place] [address] | | | | | | [phone] | | | | | | | | +--------+ + + + + documented as of this encounter Visit Diagnoses Not on filedocumented in this encounter"
--- OUTSIDE RECORDS SUMMARY | ~2019-09-30 | XMS | Encounter Summary ---
Demographics + + + | Address | [address] | | | [place] [address] | + + + | Home Phone [...] Team Providers + +------+ + | Care Grades 1 [employer] 6 Teacher Name | Role | Phone | + +------+ + | Erika Ernst DO | PCP | | + +------+ + Reason for Visit + + + | Reason | Comments | + + + | Thyroid Nodules | | + + + Evaluate & Treat (Routine) + + + + + + + | Status | Reason | Specialty | Diagnoses / | Referred By | Referred To | | | | | Procedures | Contact | Contact | + + + + + + + | Authorized | Specialty | Otolaryngolog | Diagnoses | Klever, | Cc [employer] | | | Services | y | Left | Erika A, DO | [address] | | | Required | | thyroid | [address] | [address] [place] | | | | | nodule | [place], | [place] | | | | | Procedures | [place] [address] | [place], [place] | | | | | [place] | Phone: | [address] | | | | | | [phone] | Phone: | | | | | | Fax: | [phone] | | | | | | [phone] | Fax: | | | | | | | [phone] | + + + + + + + Encounter Details +--------+---------+ + + + | Date | Type | Department | Care Team | Description | +--------+---------+ + + + | 08/01/ | Office | [facility] [facility] | Anthony Alvarado MD | Multiple thyroid | | 2019 | Visit | [facility] [address] | [address] | nodules; Left | | | | [address] [place] [place] | [place] | thyroid nodule | | | | [place], [place] | [address] | | | | | [address] | [phone] | | | | | [phone] | | | +--------+---------+ + + + [...] +---------+ + + | Blood Pressure | 145/90 | 08/01/2019 11:18 AM | | | | | PDT | | + +---------+ + + | Pulse | 79 | 08/01/2019 11:18 AM | | | | | PDT | | + +---------+ + + | Temperature | - | - | | + +---------+ + + | Respiratory Rate | 16 | 08/01/2019 11:18 AM | | | | | PDT | | + +---------+ + + | Oxygen Saturation | 99% | 08/01/2019 11:18 AM | | | | | PDT [...] Instructions Patient Instructions Anthony Alvarado MD - 08/01/2019 11:30 AM PDTDr. Christiano will order an ultr asound-guided fine-needle aspiration of your larger left thyroid nodule. He will be contact ing you with the results of that. 12: 03 PM PDT documented in this encounter Progress Notes Anthony Alvarado MD - 08/01/2019 11:30 AM PDT Otolaryngology Follow Up Clinic Note For: Andrea Suh 29 y.o. [id number] On 08/01/2019, Andrea Suh was seen by Anthony Alvarado MD Past Medical History: Patient has previously been seen by myself for temporomandibular joint disorder. She has b een followed by Dr. Wheeler for potential Mnire's disease. On my last visit with her i n April 2019 apart from significant temporomandibular joint tenderness she had a normal compr ehensive examination of the head and neck. Patient's Primary Provider is Erika Ernst DO Prior Workup Includes: Laboratory: Apart from a slightly decreased hematocrit and hemoglobin patient had an essent ially normal CBC on June 17, 2019. At that time she had decreased iron and decreased ir on saturation. Her vitamin D was normal. Patient had a TSH of 1.58 on July 24, 2019. Radiology: Patient had an ultrasound of the thyroid done on June 28, 2019. This demon strates no cervical adenopathy. No nodules seen in the right thyroid lobe. No nodules in t he isthmus. Patient has a 5 mm nodule in the left mid lobe and a 1.1 x 0.8 nodule in the le ft lower lobe. Pathology: None Current History of the present Illness: Patient is referred to me for assessment of her left thyroid nodule. She was having an examination with Dr. Ernst and had some tenderness in her neck and this is what prompted her to obtain the ultrasound of her thyroid. She has recently resumed taki ng levothyroxine 50 g per day. She has not had any significant change in her voice, breat ashli or swallowing. The patient has 2 maternal aunts who have had thyroid cancer and several cousins who have h ad thyroid cancer. She is unsure of what the pathology was. She is unsure of whether or no t they received postoperative radioiodine. None have from their thyroid cancer. She has never received ionizing radiation to her neck. She is pursuing oral surgery consultation regarding her severe temporomandibular joint diso rder. Medical Problem List: Patient Active Problem List Diagnosis Asthma due to environmental allergies Acquired hypothyroidism Class 3 severe obesity due [...] persistent asthma with acute exacerbation Iron deficiency Multiple thyroid nodules Meds: Current Outpatient Medications on File Prior to [...] tablet by mouth nightly. 30 tablet 11 mupirocin (BACTROBAN) 2% ointment Apply a thin amount to affected area 2 times per day for 10 days, reevaluate if no response 22 g 0 pseudoephedrine-guaiFENesin (MUCINEX D) 60-600 mg per 12 hr tablet Take 1 tablet by codi th 2 times daily. 14 tablet 0 ramipril (ALTACE) 5 mg capsule Take 1 capsule by mouth Daily. 30 capsule 11 traMADol (ULTRAM) 50 mg tablet Take 50 mg by mouth every 6 hours as needed. UNABLE TO FIND Med Name: nell Zinc 10 MG LOZG No current facility-administered medications on file prior to visit. Allergies: Allergies Allergen Reactions Latex Rash Lexapro [Escitalopram] Palpitations Deblitane [Norethindrone] Hydrocodone Hives Milk Unknown Nickel Dermatitis, Itching and Swelling Uncoded Nonscreenable Allergen Other (See Comments) Other reaction(s): Proclivity to C-diff with certain antibiotics Adhesive & Tape Rash Current Physical Exam: Vitals: 08/01/19 1118 BP: 145/90 Pulse: 79 Resp: 16 PainSc: 7 PainLoc: Wrist Examination today reveals: Examination of the nose revealed widely patent nasal airways. The mucosal surfaces appeare d healthy. There was no inflammation, mucopus or lesions. Examination of the oral cavity and oropharynx demonstrated no mucosal lesions. The floor o f mouth and tongue were soft. Examination of the hypopharynx and larynx reveals normal vocal cord mobility. No mucosal l esions. No submucosal fullness. On my examination of her neck I do not palpate any periparotid or cervical adenopathy. I d o not palpate any nodules in her thyroid bed. ASSESSMENT: 29-year-old woman with a 1.1 cm in greatest dimension left inferior thyroid nod ule and 5 mm mid left thyroid nodule. Strong family history for thyroid cancer. PLAN: I spoke with her about options at this point area we talked about follow-up ultrasoun d in 6 months. We talked about proceeding with an ultrasound-guided fine-needle aspiration of the larger of the 2 left thyroid nodules and she would like to do that. I think that is reasonable. I have ordered the ultrasound-guided fine-needle aspiration and I will be karla ng her with the results. CLINIC PROCEDURE PERFORMED: None This note was transcribed using voice recognition software; there may be speech recognition errors which escaped detection during review. Anthony Alvarado MD 08/01/2019 documented in this enco unter Plan of Treatment +--------+ + + + + | Date | Type | Specialty | Care Team | Description | +--------+ + + + + | 10/01/ | Office | Primary Care | Erika Ernst, | | | 2018 | Visit | | DO [address] [place] | | | | | | [place] [address] | | | | | | [phone] | | | | | | | | +--------+ + + + + | 10/30/ | Office | Primary Care | Erika Ernst, | | | 2019 | Visit | | DO [address] [place] | | | | | | [place] [address] | | | | | | [phone] | | | | | | | | +--------+ + + + + | 11/07/ | Appointment | Nutrition | Janel Webster | | | 2019 | | | [place] | | +--------+ + + + + | 11/28/ | Office | Otolaryngology | Anthony Alvarado MD | | 2019 | Visit | | [address], [place] | | | | | | [place], [place] | | | | | | [address] | | | | | | [phone] | | | | | | | | +--------+ + + + + | 02/09/ | Office | Neurology | Dhara, | | | 2020 | Visit | | [address]WA[address] Ross [address] [place], | | | | | | [place] [address] | | | | | | [phone] | | | | | | | | +--------+ + + + + + + +--------+ + + | Name | Type | Priori | Associated Diagnoses | Date/Time | | | | ty | | | + + +--------+ + + | Fine Needle | Pathology | Routin | Left thyroid | 09/02/2019 8:30 AM | | Aspiration | and | e | nodule | PST | | | Cytology | | | | + + +--------+ + + + + +--------+ + + | Name | Type | Priori | Associated Diagnoses | Order Schedule | | | | ty | | | + + +--------+ + + | Fine Needle | Pathology | Routin | Left thyroid | Expected: | | Aspiration | and | e | nodule | 08/08/2019, Expires: | | | Cytology | | | 08/01/2020 | + + +--------+ + + documented as of this encounter Results US Guided Thyroid FNA (09/02/2019 8:55 AM PST) + + | Specimen | + + | | + + + + + | Impressions | Performed At | + + + | Uneventful ultrasound-guided left thyroid biopsy. Dictated by: | [facility] | | Chris Bedolla Electronically Signed by: Chris Bedolla on | | | 09/02/2019 9:25 AM | | + + + + + + | Narrative | Performed At | + + + | EXAMINATION: US GUIDED THYROID FNA HISTORY: Please perform | [facility] | | ultrasound-guided fine-needle aspiration of left lower lobe thyroid | | | nodule. COMPARISON STUDY: Ultrasound 06/28/2019 FINDINGS: | | | The procedure is discussed with the patient. Signed consent is | | | obtained. A time-out is performed. The skin overlying the thyroid | | | is cleaned with an alcohol solution followed by iodine solution. | | | Approximately 5 cc buffered 2% lidocaine is utilized for cutaneous | | | and deeper subcutaneous anesthesia. Utilizing a 22 gauge needle for | | | sampling is of the left thyroid nodule are obtained. The samples | | | are preliminarily evaluated by a pathologist at the time of | | | acquisition. No complications developed during the procedure. | | + + + + + | Procedure Note | + + | Mitchel, Rad Results In - 09/02/2019 9:29 AM PST EXAMINATION:US GUIDED THYROID | | FNAHISTORY:Please perform ultrasound-guided fine-needle aspiration of left lower lobe | | thyroid nodule.COMPARISON STUDY:Ultrasound 06/28/2019FINDINGS:The procedure is discussed | | with the patient. Signed consent is obtained. A time-out is performed. The skin | | overlying the thyroid is cleaned with an alcohol solution followed by iodine solution. | | Approximately 5 cc buffered 2% lidocaine is utilized for cutaneous and deeper | | subcutaneous anesthesia. Utilizing a 22 gauge needle for sampling is of the left | | thyroid nodule are obtained. The samples are preliminarily evaluated by a pathologist | | at the time of acquisition. No complications developed during the procedure.IMPRESSION: | | Uneventful ultrasound-guided left thyroid biopsy.Dictated by: Crhis | | Graeme | |buffered 2% lidocaine is utilized for | | cutaneous and deeper subcutaneous anesthesia. Utilizing a 22 gauge needle for sampling is of the left thyroid nodule are obtained. The samples are preliminarily evaluated by a path ologist at the time of | |acquisition. No complications developed during | |the procedure. | | | |IMPRESSION: | |Uneventful ultrasound-guided left thyroid biopsy. | | | |Dictated by: Chris Bedolla | | | | | + + + +---------+ + + | Performing | Address | City/State/Zipcode | Phone Number | | Organization | | | | + +---------+ + + | [facility] | | | | + +---------+ + + documented in this encounter Visit Diagnoses + + | Diagnosis | + + | Multiple thyroid nodules Nontoxic multinodular goiter | + + | Left thyroid nodule Nontoxic uninodular goiter | + + documented in this encounter"
--- OUTSIDE RECORDS SUMMARY | ~2019-09-30 | XMS | Encounter Summary ---
Demographics + + + | Address | [address] | | | [place] [address] | + + + | Home Phone [...] Team Providers + +------+ + | Care Quarry Supervisor Dimension Stone Name | Role | Phone | + [...] Imaging | | 2019 | | [facility] | DO [address] | | | | | [facility] [address] | [place] [address] | | | | | [address] [place], | [phone] | | | | | [place] [address] | | | | | | [phone] | | | +--------+ + + + [...] | | | | | [place] [address] | | | | | | [phone] | | | | | | | | +--------+ + + + + | 10/30/ | Office | Primary Care | Erika Ernst, | | | 2019 | Visit | | DO [address] | | | | | | [place] [address] | | | | | | [phone] | | | | | | | [...] [place] | | | | | | [address] | | | | | | [phone] | | | | | | | | +--------+ + + + + | 02/09/ | Office | Neurology | Dhara, | | | 2020 | Visit | | [address] | | | | | | [address] [place], | | | | | | [place] [address] | | | | | | [phone] | | | | | | | | +--------+ + + + + documented as of this encounter Visit Diagnoses Not on filedocumented in this encounter"
--- OUTSIDE RECORDS SUMMARY | ~2019-09-30 | XMS | Encounter Summary ---
Demographics + + + | Address | [address] | | | [place] [address] | + + + | Home Phone [...] Team Providers + +------+ + | Care Quality Control Microbiologist Name | Role | Phone | + [...] [place] | | | | | | [address] | | | | | | [phone] | | | +--------+ + + + [...] | | | | | [place] [address] | | | | | | [phone] | | | | | | | | +--------+ + + + + | 10/30/ | Office | Primary Care | Erika Ernst, | | | 2019 | Visit | | DO [address] | | | | | | [place] [address] | | | | | | [phone] | | | | | | | [...] [place] | | | | | | [address] | | | | | | [phone] | | | | | | | | +--------+ + + + + | 02/09/ | Office | Neurology | Dhara, | | | 2019 | Visit | | Karyanne, DIE SET UP WORKER [address] | | | [address] [place], | | | | | | [place] [address] | | | | | | [phone] | | | | | | | | +--------+ + + + + documented as of this encounter Visit Diagnoses Not on filedocumented in this encounter"
--- OUTSIDE RECORDS SUMMARY | ~2019-09-30 | XMS | Encounter Summary ---
Demographics + + + | Address | [address] | | | [place] [address] | + + + | Home Phone [...] Team Providers + +------+ + | Care Tufting Supervisor Name | Role | Phone | [...] | [facility] [address] | [place] [address] | | | | | [address] [place], | [phone] | | | | | [place] [address] | | | | | | [phone] | | | +--------+ + + + [...] | | | | | [place] [address] | | | | | | [phone] | | | | | | | | +--------+ + + + + | 10/30/ | Office | Primary Care | Erika Ernst, | | | 2019 | Visit | | DO [address] | | | | | | [place] [address] | | | | | | [phone] | | | | | | | [...] [place] | | | | | | [address] | | | | | | [phone] | | | | | | | | +--------+ + + + + | 02/09/ | Office | Neurology | Dhara, | | | 2019 | Visit | | DWAINE Ross [address] | | | | | | [address] [place], | | | | | | [place] [address] | | | | | | [phone] | | | | | | | | +--------+ + + + + documented as of this encounter Visit Diagnoses Not on filedocumented in this encounter"
--- OUTSIDE RECORDS SUMMARY | ~2019-09-30 | XMS | Encounter Summary ---
Demographics + + + | Address | [address] | | | [place] [address] | + + + | Home Phone [...] Team Providers + +------+ + | Care Career And Guidance Counselor Name | Role | Phone | + +------+ + PCP | Unavailable | + +------+ + Encounter Details +--------+ + + + + | Date | Type | Department | Care Team | Description | +--------+ + + + + | 03/30/ | [facility] | Azul Yeboah | | | 2016 | Encounter | [facility] | MD Marti [address] | | | | | CL[address] | [place] | | | | | [address] [place], [place] | [place] [address] | | | | | [address] | [phone] | | | | | [phone] | | | +--------+ + + + [...] | | | | | [place] [address] | | | | | | [phone] | | | | | | | | +--------+ + + + + | 10/30/ | Office | Primary Care | Erika Ernst, | | | 2019 | Visit | | DO [address] | | | | | | [place] [address] | | | | | | [phone] | | | | | | | [...] [place] | | | | | | [address] | | | | | | [phone] | | | | | | | | +--------+ + + + + | 02/09/ | Office | Neurology | Dhara, | | | 2019 | Visit | | [address]WA[address] | | | | | | [address] [place], | | | | | | [place] [address] | | | | | | [phone] | | | | | | | | +--------+ + + + + documented as of this encounter Visit Diagnoses Not on filedocumented in this encounter"
--- OUTSIDE RECORDS SUMMARY | ~2019-09-30 | XMS | Encounter Summary ---
Demographics + + + | Address | [address] | | | [place] [address] | + + + | Home Phone [...] + +------+ + | Care Direct Care Worker Name | Role | Phone [...] Refill | | 2019 | | [facility] | [address] | | | | | MEDICAL CL[facility] [address] | [facility] [place] [address] | | | | | [address] [place], | [phone] | | | | | [place] [address] | | | | | | [phone] | | | +--------+ + + + [...] | | | | | [place] [address] | | | | | | [phone] | | | | | | | | +--------+ + + + + | 10/30/ | Office | Primary Care | Erika Ernst, | | | 2019 | Visit | | DO [address] | | | | | | [place] [address] | | | | | | [phone] | | | | | | | [...] [place] | | | | | | [address] | | | | | | [phone] | | | | | | | | +--------+ + + + + | 02/09/ | Office | Neurology | Dhara, | | | 2020 | Visit | | [address] | | | | | | [address] [place], | | | | | | [place] [address] | | | | | | [phone] | | | | | | | | +--------+ + + + + documented as of this encounter Visit Diagnoses Not on filedocumented in this encounter"
--- OUTSIDE RECORDS SUMMARY | ~2019-09-30 | XMS | Encounter Summary ---
Demographics + + + | Address | [address] | | | [place] [address] | + + + | Home Phone [...] Team Providers + +------+ + | Care Weight Engineer Name | Role | Phone | [...] [place] | | | | | [address] | [address] | | | | | [phone] | [phone] | | | | | | | [...] | | | | | [place] [address] | | | | | | [phone] | | | | | | | | +--------+ + + + + | 10/30/ | Office | Primary Care | Erika Ernst, | | | 2019 | Visit | | DO [address] | | | | | | [place] [address] | | | | | | [phone] | | | | | | | [...] [place] | | | | | | [address] | | | | | | [phone] | | | | | | | | +--------+ + + + + | 02/09/ | Office | Neurology | Dhara, | | | 2020 | Visit | | [address] Ross [address] | | | | [address] [place], | | | | | | [place] [address] | | | | | | [phone] | | | | | | | | +--------+ + + + + documented as of this encounter Visit Diagnoses Not on filedocumented in this encounter"
--- OUTSIDE RECORDS SUMMARY | ~2019-09-30 | XMS | Encounter Summary ---
Demographics + + + | Address | [address] | | | [place] [address] | + + + | Home Phone [...] Team Providers + +------+ + | Care Protein Purification Scientist Name | Role | Phone | [...] | | | of left | [place] [address] | [place] [address] | | | | | ankle, | Phone: | Phone: | | | | | initial | [phone] | [phone] | | | | | encounter | Fax: | Fax: | | | | | Procedures | [phone] | [phone] | | | | | PT TREAT | | | +--------+--------+ + + + + Encounter Details +--------+ + + + + | Date | Type | Department | Care Team | Description | +--------+ + + + + | 09/07/ | Hospital | [place] [facility] | Erika Ernst, | Sprain of left | | 2018 | Encounter | HOSPITAL [facility] PT | DO [address] | ankle, subsequent | | | | [address] | [place] [address] | encounter (Primary | | | | [place], [place] | [phone] | Dx) | | | | [address] | | | | | | [phone] | Nick Barrios I, PT | | [...] Progress Notes Nick Barrios I, PT - 09/07/2018 2:07 PM PSTFormatting of this note might be different fro m the original. [facility] PT [address] [place] [address] Physical Therapy Daily Treatment Note Date: 09/07/2018 Patient Information Patient Name: Andrea Suh Date of : 1990 Age: 28 y.o. Encounter Diagnoses Code Name Primary? S93.402D Sprain of left ankle, subsequent encounter Yes Date of Onset: 06/11/2018 Referring Provider: Erika Ernst DO Objective Pain Assessment: Pain Rating Pre Assessment: 4 Pain Rating Post Assessment: 4 Location: L ankle Standardized Tests: Lower Extremity Functional Scale (LEFS) Lower Extremity Functional Scale Goal: 75 Lower Extremity Functional Scale Goal Status: Ongoing Today's Treatment Patient Name: Andrea Suh/: 1990/ Start Time: 1259 Stop time: 1348 Duration: 49 minutes Timed Treatment Codes: 47 minutes # of PT Visits to Date: 11 Visit Summary: S: I'm here. Ankle feels about the same as it did last time. I have been try ing to do my exercises. A: Discussed continuing physical therapy with 1x/wk aquatic, 1x/wk l and therapy due to lack of progression with L ankle pain symptoms, patient agreeable to this . Tolerated progression of LE strength and balance exercises today. Physical therapy remains necessary in order to improve pain symptoms and return to prior level of function. Next Visit Information: Progress LE strength and balance exercises with steps, bosu, bridge progression, quantum, leg press, lunges Therapy Interventions HEP: ONGOING: supine bridges 3x10 progressing to 15 4x/wk // Sidelying hip abduction 3x10 p rogressing to 15 4x/wk // Tandem stance 2x60 second holds each foot position 1x/day // Using RTB in door jam rather than holding onto with hands. Discontinue PF with theraband in favor of SL heel raise with DIALYSIS SOCIAL WORKER. ONGOING: SLS on even surface 3x30 seconds 1x/day // Double leg heel raise 3x10 3x/wk // forward/lateral step ups on 8" step 3x10 3x/wk each // standing ach illes stretch 3x30 seconds 1x/day. // 4 way ankle PRE yellow theraband 3x10 each direction 3 x/wk. // Ankle inversion/eversion 3x10 progressing to 20 1x/day // ankle ABC's 3x/day. // An kle pumps 3x10 progressing to 20 repetitions 1x/day // ankle circles 3x10 progressing to 20 repetitions each direction 1x/day PT INTERVENTION 1: TE - (32 minutes) TM ambulation 10 minutes @ 1.1 mph // DBL heel raise u p, SL down 1x15 even ground // Lateral step ups L LE 2x10 12 inch step // L LE forward step up with opposite hip flexion 2x12 12 inch step // additional time required for rest between exercises, patient required cueing to perform exercises correctly. PT INTERVENTION 2: NMR (15 minutes) Rhomberg stance on airex eyes closed DIALYSIS SOCIAL WORKER as needed 2x1 minute // SLS on even ground DIALYSIS SOCIAL WORKER grab bar as needed 1x30 seconds 2x1 minute, on airex pad 1x 1 minute // Forward step up on marcin disc 3x10 // additional time required for rest between e xercises and cueing for correct form of exercise [...] at 4/10 today Electronically signed by: Nick Barrios, PT, 09/07/2018 14:07 Patient Name: Andrea King Angeli/: 1990/ documented [...] | | | | | [place] [address] | | | | | | [phone] | | | | | | | | +--------+ + + + + | 10/30/ | Office | Primary Care | Erika Ernst, | | | 2019 | Visit | | DO [address] | | | | | | [place] [address] | | | | | | [phone] | | | | | | | [...] [place] | | | | | | [address] | | | | | | [phone] | | | | | | | | +--------+ + + + + | 02/09/ | Office | Neurology | Dhara, | | | 2019 | Visit | | [address] | | [address] [place], | | | | | | [place] [address] | | | | | | [phone] | | | | | | | | +--------+ + + + + documented as of this encounter Visit Diagnoses + + | Diagnosis | + + | Sprain of left ankle, subsequent encounter - Primary | + + documented in this encounter
--- OUTSIDE RECORDS SUMMARY | ~2019-09-30 | XMS | Encounter Summary ---
Demographics + + + | Address | [address] | | | [place] [address] | + + + | Home Phone [...] Team Providers + +------+ + | Care Datastage Consultant Name | Role | Phone | [...] | | | | s (de | [place], [place] | [place] [address] | | | | | quervain) | [address] | Phone: | | | | | Pain in | Phone: | [phone] | | | | | right wrist | [phone] | Fax: | | | | | Procedures | Fax: | [phone] | | | | | OT TREAT | [phone] | | +--------+--------+ + + + + [...] | | [address] [place] | [place] [address] | (Primary Dx); Right | | | | [place], [place] | [phone] | wrist pain | | | | [address] | | | | | | [phone] | Michela Azevedo, | | | | [...] | 11/26/19 | | | (VITAMIN D3) [address] | mouth Once a week | tablet [...] rom the original. Patient Information Patient: Andrea Suh Ordering Physician: Jeffrey Gandhi MD Claim #: [id number] Date of Injury: No data was found [...] Deviation: 21 Strength at last Assessment L Temporary Data Entry Clerk Trial 1: 51 L Temporary Data Entry Clerk Trial Average: 51 Right Hand Strength - Temporary Data Entry Clerk (lbs) R Temporary Data Entry Clerk Trial 1: 25 R Temporary Data Entry Clerk Trial Average: 25 Current Strength Strength: R Temporary Data Entry Clerk Trial 1: 24 R Temporary Data Entry Clerk Trial Average: 24 Left Hand Strength - Temporary Data Entry Clerk (lbs) L Temporary Data Entry Clerk Trial 1: 41 L Temporary Data Entry Clerk Trial Average: 41 Proposed Treatment Dates for Majoris Review Proposed treatments date: No data was found to No data was found Plan Treatment Plan/Interventions OT [id number] - Therapeutic Tlaiojyp52225 - Therapeutic Njzygybngk29983 - Self Care/ Home Vjjxspyxyg16586 - Manual Chrissm69425 - Orthotic/Prosthetic Ddtbkzgq20622 - Ultrasound9 7034 - Contrast Zvzu85327 - Paraffin BathSplinting Moist heat, cold therapy [...] 10/30/2018 Certification To: 01/22/2019 Treatment Plan/Interventions OT Bhxfoyyatk26120 - Therapeutic Bjreibzb97525 - Therapeutic Qmlmuciqqv08310 - Self Care/Ho me Mkaaoayreh26733 - Manual Ydhoykt43590 - Orthotic/Prosthetic Vvlyjkgy55766 - Iskuxeqptu066 34 - Contrast Onus64948 - Paraffin BathSplinting Moist heat, cold therapy [...] period and is compliant with wrist and game protector strengthening exercises. She does still have deficits in game protector strength and wrist stability as well as pain with daily activities. Her arya b description may be changing which would decrease the physical demands of her work, making it more appropriate for her current status. She continues to benefit from Occupational Thera py to maximize her game protector strength and wrist stability following this injury and return her to prior level of function. 10/30/2018 - REASON FOR RE-CERTIFICATION: Andrea has received 12 Occupational Therapy treatme nts since 08/07/2018 following her right wrist surgery. She has regained full AROM of the rig ht wrist but continues to have right wrist, game protector and pinch weakness and significant pain (3- [...] in 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, and game protector and pinch weakness in the right hand [...] note might be different from the original. [facility] [address] [place] [address] Occupational Therapy Daily Treatment Note Date: 12/31/2018 [...] other week until she sees Dr. Noriega. Temporary Data Entry Clerk strengthening protocol 5' 2x/day and isometrics are her HEP until next session. Next Visit: check response for game protector strengthening protocol Patient/Caregiver Education Learner: Patient Readiness: Acceptance Method: Explanation, Demonstration, Handout Response: Verbalizes Understanding, Demonstrated Understanding Comment: HEP Interventions HEP : game protector strengthening x 5' 2x/day with progressions and regressions as needed per tolera nce discussed, submaximal isometrics x 10 reps a day each direction OT INTERVENTION 2: TE 30 minutes: submaximal isometrics x 10, game protector strengthening protocol 5 minutes with pink tputty, [...] period and is compliant with wrist and game protector strengthening exercises. She does still have deficits in game protector strength and wrist stability as well as pain with daily activities. Her arya b description may be changing which would decrease the physical demands of her work, making it more appropriate for her current status. She continues to benefit from Occupational Thera py to maximize her game protector strength and wrist stability following this injury and return her to prior level of function. 10/30/2018 - REASON FOR RE-CERTIFICATION: Andrea has received 12 Occupational Therapy treatme nts since 08/07/2018 following her right wrist surgery. She has regained full AROM of the rig ht wrist but continues to have right wrist, game protector and pinch weakness and significant pain (3- 10) with daily activities with associated decline in [...] in 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, and game protector and pinch weakness in the right hand [...] occupational therapy serv ices. Electronically signed by: Micehla Azevedo OT, 01/06/2019 18:37 Patient Name: Andrea Henaonanci/: 1990/ documented in this encounter Plan of Treatment +--------+ + + + + | Date | Type | Specialty | Care Team | Description | +--------+ + + + + | 10/01/ | Office | Primary Care | Erika Ernst, | | | 2018 | Visit | | DO [address] | | | | | | [place] [address] | | | | | [phone] | | | | | | | +--------+ + + + + | 10/30/ | Office | Primary Care | Erika Ernst, | | | 2019 | Visit | | DO [address] | | | | | | [place] [address] | | | | | | [phone] | | | | | | | [...] [place] | | | | | | [address] | | | | | | [phone] | | | | | | | | +--------+ + + + + | 02/09/ | Office | Neurology | Dhara, | | | 2019 | Visit | | [address] | | | | | [address] [place], | | | | | | [place] [address] | | | | | | [phone] | | | | | | | | +--------+ + + + + documented as of this encounter Visit Diagnoses + + | Diagnosis | + + | Radial styloid tenosynovitis - Primary | + + | Right wrist pain Pain in joint, forearm | + + documented in this encounter"
--- OUTSIDE RECORDS SUMMARY | ~2019-09-30 | XMS | Encounter Summary ---
Demographics + + + | Address | [address] | | | [place] [address] | + + + | Home Phone [...] Providers + +------+ + | Care Watch Repairer Apprentice Name | Role | Phone | + +------+ + PCP | Unavailable | + +------+ + Encounter Details +--------+ + + + + | Date | Type | Department | Care Team | Description | +--------+ + + + + | 08/04/ | [facility] | [facility] | Erika Ernst, | | | 2016 | Encounter | [facility] | DO [address] | | | | | [facility]ICAL [facility] [address] | [place] [address] | | | | | [address] [place], | [phone] | | | | | [place] [address] | | | | | | [phone] | | | +--------+ + + + [...] | | | | | [place] [address] | | | | | | [phone] | | | | | | | | +--------+ + + + + | 10/30/ | Office | Primary Care | Erika Ernst, | | | 2019 | Visit | | DO [address] | | | | | | [place] [address] | | | | | | [phone] | | | | | | | [...] [place] | | | | | | [address] | | | | | | [phone] | | | | | | | | +--------+ + + + + | 02/09/ | Office | Neurology | Dhara, | | | 2019 | Visit | | [address] | | | [address] [place], | | | | | | [place] [address] | | | | | | [phone] | | | | | | | | +--------+ + + + + documented as of this encounter Visit Diagnoses Not on filedocumented in this encounter"
--- OUTSIDE RECORDS SUMMARY | ~2019-09-30 | XMS | Encounter Summary ---
Demographics + + + | Address | [address] | | | [place] [address] | + + + | Home Phone [...] Team Providers + +------+ + | Care Configuration Management Administrator Name | Role | Phone | [...] [address] | | | | | [place] [address] | | | | | | [phone] | | | +--------+ + + + [...] | | | | | [place] [address] | | | | | | [phone] | | | | | | | | +--------+ + + + + | 10/30/ | Office | Primary Care | Erika Ernst, | | | 2019 | Visit | | DO [address] | | | | | | [place] [address] | | | | | | [phone] | | | | | | | [...] [place] | | | | | | [address] | | | | | | [phone] | | | | | | | | +--------+ + + + + | 02/09/ | Office | Neurology | Dhara, | | | 2020 | Visit | | [address] | | | | | | [address] [place], | | | | | | [place] [address] | | | | | | [phone] | | | | | | | | +--------+ + + + + documented as of this encounter Visit Diagnoses Not on filedocumented in this encounter"
--- OUTSIDE RECORDS SUMMARY | ~2019-09-30 | XMS | Encounter Summary ---
Demographics + + + | Address | [address] | | | [place] [address] | + + + | Home Phone [...] Providers + +------+ + | Care Bridge Operator Name | Role | Phone | + +------+ + | Erika Ernst DO | PCP | | + +------+ + Encounter Details +--------+ + + + + | Date | Type | Department | Care Team | Description | +--------+ + + + + | 08/02/ | Orders Only | [place] [facility] | Veronica Huerta, | Asthma, unspecified | | 2018 | | [facility] | STUDY DIRECTOR | asthma severity, | | | | [facility] [address] | | unspecified whether | | | [address] [place], | | complicated, | | | | [place] [address] | | unspecified whether | | | | [phone] | | persistent (Primary | | | | | | Dx) | +--------+ + + + + Social [...] | | | | | [place] [address] | | | | | | [phone] | | | | | | | | +--------+ + + + + | 10/30/ | Office | Primary Care | Erika Ernst, | | | 2019 | Visit | | DO [address] | | | | | | [place] [address] | | | | | | [phone] | | | | | | | [...] [place] | | | | | | [address] | | | | | | [phone] | | | | | | | | +--------+ + + + + | 02/09/ | Office | Neurology | Dhara, | | | 2019 | Visit | | [address] | | [address] [place], | | | | | | [place] [address] | | | | | | [phone] | | | | | | | | +--------+ + + + + documented as of this encounter Visit Diagnoses + + | Diagnosis | + + | Asthma, unspecified asthma severity, unspecified whether complicated, unspecified | | whether persistent - Primary | + + documented in this encounter"
--- OUTSIDE RECORDS SUMMARY | ~2019-09-30 | XMS | Encounter Summary ---
Demographics + + + | Address | [address] | | | [place] [address] | + + + | Home Phone [...] Team Providers + +------+ + | Care Curator Of Education Name | Role | Phone | + +------+ + | Erika Ernst DO | PCP | | + +------+ + Reason for Visit + + + | Reason | Comments | + + + | Follow-up | WC L ankle injection | + + + Encounter Details +--------+---------+ + + + | Date | Type | Department | Care Team | Description | +--------+---------+ + + + | 12/11/ | Office | [facility] | Emily Mittal DPM | Sprain of deltoid | | 2019 | Visit | [facility] | [address] [place] | ligament of left | | | | [address] | [place], [place] | ankle, sequela | | | | [place], [place] | [address] | (Primary Dx); | | | | [address] | | Posterior tibial | | | | [phone] | | tendon dysfunction | | | | | | (PTTD) of left lower | | | | | | extremity; Hindfoot | | | | | | pronation of both | | | | | | feet | +--------+---------+ + + + Social History [...] + + + | Blood Pressure | 118/70 | 12/11/2018 9:24 AM | | | | | PDT | | + + + + + | Pulse | 100 | 12/11/2018 9:24 AM | | | | | PDT | | + + + + + | Temperature | - | - | | + + + + + | Respiratory Rate | - | - | | + + + + + | Oxygen Saturation | 97% | 12/11/2018 9:24 AM | | | | | PDT | | + + + + + | Inhaled Oxygen | - | - | | | Concentration | | | | + + + + + | Weight | 163.3 kg (360 lb) | 12/11/2018 9:24 AM | Patient states | | | | PDT | | + + + + + | Height | 177.8 cm (5' 10") | 12/11/2018 9:24 AM | | | | | PDT | | + + + + + | Body Mass Index | 51.65 | 12/11/2018 9:24 AM | | | | | PDT | | + + + + + documented in this encounter Progress Emily Connolly DPM - 12/11/2018 9:30 AM PDT [facility] Note Patient Name: Andrea Suh | Age: 28 y.o. | : 1990 | Medical Record Number:[id number] | Author: Emily Mittal DPM | Date of Encounter: 12/06/2018 Chief complaint Chief Complaint Patient presents with Follow-up WC L ankle injection History of Present Illness Andrea Suh is a 28 y.o. female that presents to my office For follow-up of left ank le injection. Patient states that her symptoms improved by about 70% after the first 3 or 4 days but then steadily declined. She relates that her symptoms are not back to her preinje ction levels but nearly. She rates improvement is about 15% at this point. She continues t o have sharp stabbing pain to the inside of her ankle as well as a clicking feeling that she feels stops her ankle joint motion when she's walking. Patient does take ibuprofen even with her current stomach issues but she's concerned tayler doss her stomach issues have become worse because she takes much ibuprofen. Well patient has a ttempted numerous months of physical therapy as well as bracing which did not improve her sy mptoms but she has not tried orthotic devices yet. The patient is willing to try an orthoti c device to improve her symptoms. Medications Current Outpatient Prescriptions on File Prior [...] BID 60 tablet 3 Cholecalciferol (VITAMIN D3) 26460 units TABS Take 1 tablet by mouth [...] tablet by mouth nightly. 30 tablet 11 QVAR REDIHALER 80 MCG/ACT inhaler 0 No current facility-administered medications on file prior to visit. Allergies Escitalopram; Latex; Hydrocodone; Norethindrone; Oxycodone; Uncoded nonscreenable allergen; and Adhesive & tape Vitals BP 118/70 | Pulse 100 | Resp Temp | Wt (!) 163.3 kg (360 lb) (Patient states) | BMI Latrell dy mass index is 51.65 kg/m. ROS Patient denies any visit problem [...] a well-dressed female in NAD and A&Ox3. Regular rate and rhythm by radial pu lse examination. Chest rise equal and symmetric, no labored breathing. Neurovascular status is unchanged from previous visit MSK: Decreased medial longitudinal arch height with mild pronation on stance. There is a 7 valgus attitude of the hindfoot on resting calcaneal stance position to the left and appr oximately 2 to the right. Patient unable to perform a single or double leg heel raise on the left. Pain on palpation inferior medial ankle at the deltoid ligament complex as well a s along the posterior tibial tendon at the level of the ankle and its insertion of the left. Pain onPalpation medial anterior ankle. Pain on dorsiflexion and eversion left ankle. Assessment ICD-10-CM ICD-9-CM 1. Sprain of deltoid ligament of left ankle, sequela S93.422S 905.7 845.01 2. Posterior tibial tendon dysfunction (PTTD) of left lower extremity M76.822 734 3. Hindfoot pronation of both feet M21.6X1 736.79 M21.6X2 Treatment and Plan of Care I also discussed orthotics with a medial wedge or a medial flange to resist pronation and t hus the stress and strain on the PT tendon. The patient was casted for custom orthoses in standard orthopedic protocol. Bio pro with m edial flange to the metastases Rx: Voltaren gel 1% to be applied to the affected area 3 times a day as patient is having i ssues taking ibuprofen Return to the office once orthotics have been dispensed and patient has worn them at least 2-3 weeks Active Problems, Medical and Surgical Histories Patient [...] PROCEDURE 01/20/2016 Surgeon: Fani Mahajan MD; Location: [facility] TENDON RELEASE TONSILLECTOMY WISDOM TOOTH EXTRACTION Family History Problem Relation Age of Onset Other (see comment) Mother gallbladder disease Hypertension Father Other (see comment) Father arrhymthmia Breast cancer Sister Cervical cancer Maternal Grandmother Heart attack Maternal Aunt [place] Social History Social History Marital status: Single [...] and their vital signs recorded by my water quality assistant today, leslie s found in this chart note. Electronically signed by: Emily Mittal DPM 12/06/2018 at 12:42 Note: Part of this report was transcribed using voice recognition software. Every effort wa s made to ensure accuracy. However, inadvertent computerized medical records clerk errors may be pre sent. CC: Erika [...] [place] | | | | | | [place] [address] | | | | | | [phone] | | | | | | | | +--------+ + + + + | 10/30/ | Office | Primary Care | Erika Ernst, | | | 2019 | Visit | | DO [address] [place] | | | | | | [place] [address] | | | | | | [phone] | | | | | | | [...] [place] | | | | | | [address] | | | | | | [phone] | | | | | | | | +--------+ + + + + | 02/09/ | Office | Neurology | Dhara, | | | 2019 | Visit | | DWAINE Ross [address] [place], | | | | | | [place] [address] | | | | | | [phone] | | | | | | | | +--------+ + + + + documented as of this encounter Visit Diagnoses + + | Diagnosis | + + | Sprain of deltoid ligament of left ankle, sequela - Primary | + + | Posterior tibial tendon dysfunction (PTTD) of left lower extremity | + + | Hindfoot pronation of both feet | + + documented in this encounter
--- OUTSIDE RECORDS SUMMARY | ~2019-09-30 | XMS | Encounter Summary ---
Demographics + + + | Address | [address] | | | [place] [address] | + + + | Home Phone [...] Team Providers + +------+ + | Care Sterile Process Tech Name | Role | Phone | + +------+ + | Erika Ernst DO | PCP | | + +------+ + Encounter Details +--------+ + + + + | Date | Type | Department | Care Team | Description | +--------+ + + + + | [facility]17/ [facility] [place] [facility] | Erika Ernst, | Acute right ankle | | 2019 | Encounter | H[facility]PITAL XRAY [address] | DO [address] | pain | | | | [address] [place] | [place] [address] | | | | | [place], [place] | [phone] | | | | | [address] | | | | | | [phone] | | | +--------+ + + + [...] | 04/12/20 | | | (VITAMIN D3) 79642 | mouth Once a week | tablet [...] | | | | | [place] [address] | | | | | | [phone] | | | | | | | | +--------+ + + + + | 10/30/ | Office | Primary Care | Erika Ernst, | | | 2019 | Visit | | DO [address] [place] | | | | | | [place] [address] | | | | | | [phone] | | | | | | | [...] [place] | | | | | | [address] | | | | | | [phone] | | | | | | | | +--------+ + + + + | 02/09/ | Office | Neurology | Dhara, | | | 2019 | Visit | | DWAINE Ross [address] [place], | | | | | | [place] [address] | | | | | | [phone] | | | | | | | | +--------+ + + + + documented as of this encounter Procedures + +--------+ + + + | Procedure Name | Priori | Date/Time | Associated Diagnosis | Comments | | | ty | | | | + +--------+ + + + | XR ANKLE RIGHT 3 + | Routin | 07/17/2019 | Acute right ankle | Results for this | | VW | e | 9:24 AM | pain | procedure are in [...]
--- OUTSIDE RECORDS SUMMARY | ~2019-09-30 | XMS | Encounter Summary ---
Demographics + + + | Address | [address] | | | [place] [address] | + + + | Home Phone [...] Team Providers + +------+ + | Care Acetone Recovery Worker Name | Role | Phone | [...] | | | | | | [address] | | | | | | [place] | | | | | | [address] | | | | | | [phone] | | | +--------+ + + + [...] | | | | | [place] [address] | | | | | | [phone] | | | | | | | | +--------+ + + + + | 10/30/ | Office | Primary Care | Erika Ernst, | | | 2019 | Visit | | DO [address] [place] | | | | | | [place] [address] | | | | | | [phone] | | | | | | | [...] [place] | | | | | | [address] | | | | | | [phone] | | | | | | | | +--------+ + + + + | 02/09/ | Office | Neurology | Dhara, | | | 2019 | Visit | | DWAINE Ross [address] [place], | | | | | | [place] [address] | | | | | | [phone] | | | | | | | | +--------+ + + + + documented as of this encounter Visit Diagnoses Not on filedocumented in this encounter"
--- OUTSIDE RECORDS SUMMARY | ~2019-09-30 | XMS | Encounter Summary ---
Demographics + + + | Address | [address] | | | [place] [address] | + + + | Home Phone [...] Providers + +------+ + | Care Electric Truck Operator Name | Role | Phone | [...] | Obstetrics | Diagnoses | Tank Ernst Sariah, | | | Services | and | Painful | Erika A, DO | Henna | | | Required | Gynecology | menstrual | [address] | Lesli | | | | | periods | [place], | DO Jack | | | | | | [place] [address] | [address] | | | | | | Phone: | [place] | | | | | | [phone] | [place] | | | | | | Fax: | [address] Phone: | | | | | | [phone] | [phone] | | | | | | | Fax: | | | | | | | [phone] | +--------+ + + + + + Reason for Visit +--------+ + | Reason | Comments | +--------+ + | Other | painful menses, reports missed 3 days of work | +--------+ + Encounter Details +--------+---------+ + + + | Date | Type | Department | Care Team | Description | +--------+---------+ + + + | 07/12/ | Office | [facility] [facility] | Erika Ernst, | Painful menstrual | | 2017 | Visit | [facility] | DO [address] [place] | periods (Primary | | | | [facility] [address] | [place] [address] | Dx); Dysmenorrhea | | | | [address] [place], | [phone] | | | | | [place] [address] | | | | | | [phone] | | | +--------+---------+ + + + [...] + + + | Blood Pressure | 132/90 | 07/12/2018 2:34 PM | | | | | PDT | | + + + + + | Pulse | 97 | 07/12/2018 2:34 PM | | | | | PDT | | + + + + + | Temperature | - | - | | + + + + + | Respiratory Rate | 16 | 07/12/2018 2:34 PM | | | | | PDT | | + + + + + | Oxygen Saturation | 97% | 07/12/2018 2:34 PM | | | | | PDT | | + + + + + | Inhaled Oxygen | - | - | | | Concentration | | | | + + + + + | Weight | 166.5 kg (367 lb) | 07/12/2018 2:34 PM | | | | | PDT | | + + + + + | Height | 177.8 cm (5' 10") | 07/12/2018 2:34 PM | | | | | PDT | | + + + + + | Body Mass Index | 52.66 | 07/12/2018 2:34 PM | | | | | PDT | | + + + + + documented in this encounter Progress Erika Cespedes DO - 07/12/2018 2:30 PM PDTFormatting of this note might be different fro m the original. Subjective: Patient ID: Andrea Suh is a 28 y.o. female. Here with complaints of painful menstrual periods. Had seen Stained Glass Installer in [place] in January for this and did not return for FU. First menses was at age 11. Periods are regular every 29 day s. No mid cycle pain. Flow is heavy first day then tapers. Pain starts first day and continu es whole period with cramping and even a day or two after period done. She would like referr al back to the Stained Glass Installer in [place]. Period just ended, no pain today. Review of Systems Constitutional: Negative. Respiratory: Negative. Cardiovascular: Negative. Gastrointestinal: Negative. Endocrine: Negative. Genitourinary: Positive for menstrual problem. Psychiatric/Behavioral: Negative. Social History Social History Marital [...] Tape Rash Outpatient Encounter Prescriptions as of 07/12/2018 Medication Sig Dispense Refill amLODIPine (NORVASC) 5 mg tablet Take 1 tablet by mouth Daily. 30 tablet 11 beclomethasone (QVAR) 80 mcg/puff inhaler Inhale 1 puff into the lungs 2 times daily. 1 Inhaler 11 busPIRone (BUSPAR) 5 mg tablet Take one 5mg tab in the AM and two 5mg tabs to equal 10 mg in the PM 90 tablet 5 ferrous sulfate 325 mg tablet Take by [...] facility-administered encounter medications on file as of 07/12/2018. Objective: BP 132/90 | Pulse 97 | Resp 16 | Ht 1.778 m (5' 10") | Wt (!) 166.5 kg (367 lb) | LMP 06/29/2018 | SpO2 97% | ? No | BMI 52.66 kg/m [...] respiratory distress. She has n o wheezes. Abdominal: Soft. Bowel sounds are normal. She exhibits no distension. There is no tendernes s. Musculoskeletal: She exhibits no edema. Neurological: She is alert and oriented to person, place, and time. Skin: Skin is warm and dry. Psychiatric: She has a normal mood and affect. Her behavior is normal. Judgment and thought content normal. Assessment: 1. Painful menstrual periods Gynecology, External - AMB Referral 2. Dysmenorrhea Plan: Referral to [facility] Dr Henna Green . She will take prn ibuprofen for pain and t ry heating pad use as well. documented in this en counter Plan of Treatment +--------+ + + + + | Date | Type | Specialty | Care Team | Description | +--------+ + + + + | 10/01/ | Office | Primary Care | Erika Ernst, | | | 2018 | Visit | | DO [address] [place] | | | | | | [place] [address] | | | | | | [phone] | | | | | | | | +--------+ + + + + | 10/30/ | Office | Primary Care | Erika Ernst, | | | 2019 | Visit | | DO [address] [place] | | | | | | [place] [address] | | | | | | [phone] | | | | | | | [...] [place] | | | | | | [address] | | | | | | [phone] | | | | | | | | +--------+ + + + + | 02/09/ | Office | Neurology | Dhara, | | | 2020 | Visit | | [place], [facility] [address] | | | | | | [address] [facility] [place], | | | | | | [place] [address] | | | | | | [phone] | | | | | | | | +--------+ + + + + + + +--------+ + + | Name | Type | Priori | Associated Diagnoses | Order Schedule | | | | ty | | | + + +--------+ + + | Gynecology, External | Outpatient | Routin | Painful menstrual | Ordered: 07/12/2018 | | - AMB Referral | Referral | e | periods | | + + +--------+ + + documented as of this encounter Visit Diagnoses + + | Diagnosis | + + | Painful menstrual periods - Primary Dysmenorrhea | + + | Dysmenorrhea | + + documented in this encounter
--- OUTSIDE RECORDS SUMMARY | ~2019-09-30 | XMS | Encounter Summary ---
Demographics + + + | Address | [address] | | | [place] [address] | + + + | Home Phone [...] Team Providers + +------+ + | Care Auto Electrical Technician Name | Role | Phone | + +------+ + PCP | Unavailable | + +------+ + Encounter Details +--------+ + + + + | Date | Type | Department | Care Team | Description | +--------+ + + + + | 01/29/ | [facility] | Spenser Roberts NP | | | 2014 | Encounter | [facility] | [address], | | | | | MEDICAL [facility] [address] | [place] [address] | | | | | [address] [facility], | [phone] | | | | | [place] [address] | | | | | | [phone] | | | +--------+ + + + [...] | | | | | [place] [address] | | | | | | [phone] | | | | | | | | +--------+ + + + + | 10/30/ | Office | Primary Care | Erika Ernst, | | | 2019 | Visit | | DO [address] [place] | | | | | | [place] [address] | | | | | | [phone] | | | | | | | [...] [place] | | | | | | [address] | | | | | | [phone] | | | | | | | | +--------+ + + + + | 02/09/ | Office | Neurology | Dhara, | | | 2020 | Visit | | DWAINE Ross [address] [place], | | | | | | [place] [address] | | | | | | [phone] | | | | | | | | +--------+ + + + + documented as of this encounter Visit Diagnoses Not on filedocumented in this encounter"
--- OUTSIDE RECORDS SUMMARY | ~2019-09-30 | XMS | Encounter Summary ---
Demographics + + + | Address | [address] | | | [place] [address] | + + + | Home Phone [...] Team Providers + +------+ + | Care Mixer Operator Tablets Name | Role | Phone | + [...] | | | of left | [place] [address] | [place] [address] | | | | | ankle, | Phone: | Phone: | | | | | initial | [phone] | [phone] | | | | | encounter | Fax: | Fax: | | | | | Procedures | [phone] | [phone] | | | | | PT EVAL AND | | | | | | | TREAT | | | +--------+ + + + + + Encounter Details +--------+ + + + + | Date | Type | Department | Care Team | Description | +--------+ + + + + | 07/19/ | Hospital | [place] [facility] | Erika Ernst, | Sprain of left | | 2017 | Encounter | HOSPITAL THERAPY PT | DO [address] [place] | ankle, subsequent | | | | [address] [place] | [place] [address] | encounter (Primary | | | | [place], [place] | [phone] | Dx); Fall on same | | | | [address] | | level from slipping, | | | | [phone] | Nick Barrios I, PT | subsequent [...] Progress Notes Nick Barrios I, PT - 08/07/2018 11:42 AM PSTPT coding addendum per request: Coding has been updated for this PT series ([id number]) based on the documentation on the plan of care. Please code visit diagnoses as follows: Primary: S93.412D sprain L ankle, subsequent Secondary: W01.0XXD fall from slipping If you have any further questions please let me know. Thank you, Shelly Zeng, CCA Electronically signed by: Nick Barrios, PT, 08/07/2018 11:42 osedoug, Nick Szymanski, PT - 07/20/2018 10:20 AM PDT [facility] PT [address] [place] [address] Physical Therapy Daily Treatment Note Date: 07/19/2018 Patient Information Patient Name: Andrea Suh Date of : 1990 Age: 28 y.o. Encounter Diagnoses Code Name Primary? S93.412A Sprain of calcaneofibular ligament of left ankle, initial encounter Date of Onset: 06/11/2018 Referring Provider: Erika Ernst DO Objective Pain Assessment: Pain Rating Pre Assessment: 2 Pain Rating Post Assessment: 2 Location: L anterior ankle, but also reports 4-5/10 pain in back of L knee following "pop" sensation felt in knee 07/18/18 Today's Treatment Patient Name: Andrea Suh/: 1990/ Start Time: 1600 Stop time: 1658 Duration: 58 minutes Timed Treatment Codes: 43 minutes # of PT Visits to Date: 5 Visit Summary: S: Patient states that her L ankle feels better since beginning physical the rapy. She states that she was twisting in her chair on Monday when she felt a pop in the back of her L knee. Since then she has had pain of around 4-5/10 in the back of her knee, es pecially when fully extending her knee. She says that she felt stiff in her L ankle after la session and that her symptoms of numbness on the back of her heel has improved. She has b een compliant with HEP. A: Assessment of L knee displayed negative results on MCL/LCL stress test, anterior drawer, posterior drawer; reported tenderness to palpation of HS tendons in back of knee, suspected minor trauma to HS tendons during patient-reported twisting and trinity ing in chair. Patient tolerated increased intensity of LE strengthening and balance exercise s during session without complaints of increased pain symptoms. Continues to demonstrate L a nkle weakness during 4-way PRE exercises and balance deficits during airex exercises. Physic al therapy remains necessary in order to manage pain symptoms and improve L LE/ankle strengt h. Next Visit Information: progress LE strength with leg press, step ups; balance with tandem ambulation eyes closed airex exercises. Therapy Interventions HEP: NEW: SLS on even surface 3x30 seconds 1x/day // ONGOING: Double leg heel raise 3x10 3x /wk [...] 20 repetitions each d irection 1x/day PT Interventions: Intervention #2 PT INTERVENTION 1: TE - (25 minutes) NuStep level 4 10 minutes // PRE yellow theraband L an kle dorsiflexion/plantarflexion/eversion/inversion 1x10 each direction; red TB 1x10 each dir ection // Ankle pumps 1x20 // ankle circles 1x20 CW // Double leg heel raise 2x15 // leg pre ss 3x10 60 lbs // additional time required for patient education regarding purpose of exerci ses and correct exercise form. PT INTERVENTION 2: NMR - (18 minutes) Marching on airex pad 2x20 with use of grab bar for s tability as needed, SBA // Round bosu step ups 2x10 SBA fingertip assist on grab bar for sta bility // L foot step up with opposite HF on 8 inch step 2x10 with fingertip to handhold ass ist on grab bar as needed for stability // Static SLS on round bosu 3x30 seconds L LE with u se of grab bar as needed // Additional time required for rest between sets and patient educa tion regarding purpose of exercises. Assessment Rehabilitation potential: Patient demonstrates good [...] Goal 4 Status: Ongoing; pain rated at 2/10 today Electronically signed by: Nick Barrios PT, 07/20/2018 10:21 Patient Name: Andrea Suh/: 1990/ documented in [...] | | | | | [place] [address] | | | | | | [phone] | | | | | | | | +--------+ + + + + | 10/30/ | Office | Primary Care | Erika Ernst, | | | 2019 | Visit | | DO [address] [place] | | | | | | [place] [address] | | | | | | [phone] | | | | | | | [...] [place] | | | | | | [address] | | | | | | [phone] | | | | | | | | +--------+ + + + + | 02/09/ | Office | Neurology | Dhara, | | | 2019 | Visit | | DWAINE Ross [address] | | | | [address] [facility] [place], | | | | | | [place] [address] | | | | | | [phone] | | | | | | | | +--------+ + + + + documented as of this encounter Visit Diagnoses + + | Diagnosis | + + | Sprain of left ankle, subsequent encounter - Primary | + + | Fall on same level from slipping, subsequent encounter | + + documented in this encounter
--- OUTSIDE RECORDS SUMMARY | ~2019-09-30 | XMS | Encounter Summary ---
Demographics + + + | Address | [address] | | | [place] [address] | + + + | Home Phone [...] Team Providers + +------+ + | Care Flour Inspector Name | Role | Phone | [...] | | | of left | [place] [address] | [place] [address] | | | | | ankle, | Phone: | Phone: | | | | | initial | [phone] | [phone] | | | | | encounter | Fax: | Fax: | | | | | Procedures | [phone] | [phone] | | | | | PT TREAT | | | +--------+--------+ + + + + Encounter Details +--------+ + + + + | Date | Type | Department | Care Team | Description | +--------+ + + + + | 10/25/ | Hospital | [facility] | Keith Ernsta Joie, | Sprain of left | | 2019 | Encounter | HOSPITAL THERAPY PT | DO [address] | ankle, subsequent | | | | [address] [place] | [place] [address] | encounter (Primary | | | | [place], [place] | [phone] | Dx) | | | | [address] | | | | | | [phone] | Nick Barrios I, PT | | [...] Progress Notes Nick Barrios I, PT - 11/23/2018 9:17 AM PSTPT Addendum to resolve episode, problem list a djustment, and end relationship with patient. Electronically signed by: Nick Barrios, PT, 11/23/2018 9:17 oseph, Nick Szymanski, PT - 10/25/2018 2:47 PM PST [facility] PT [address] [place] [address] Discharge Summary Date: 10/25/2018 Patient Name: Andrea Suh Date of : 1990 Referring Provider: Erika Ernst, DO Encounter Diagnoses Code Name Primary? S93.402D Sprain of left ankle, subsequent encounter Yes Date of Onset: 06/11/2018 Start of Care Date: 07/05/2018 End of Care Date: 10/25/2018 Thank you for your referral of Andrea Suh for outpatient physical therapy services. Ms. Suh completed a total of 20 treatments. Clinical Impression: PT Discharge Summary 10/25/18: Andrea has not demonstrated significant improvements in pain symptoms in L ankle. She has improved L ankle ROM to equal or greater t beltre R ankle for all motions. Due to plateau in pain management patient is appropriate for d/ c from skilled physical therapy. She has been instructed to perform home exercises that do n ot increase pain symptoms, and to contact clinic if she has any questions or concerns regard ing her exercises or her ankle. PT Progress Summary 08/14/18: Patient has demonstrated improvements in L ankle ROM, but con tinues to lack equal or greater motion in ankle DF/PF. Continues to report L ankle pain; alt siria this may be linked to activity outside of physical therapy including hiking. Patient t olerated increased intensity of NMR and TE exercises today with reports of muscle fatigue an d requiring GERIATRIC PSYCHIATRIST with grab bar in order to maintain [...] [facility] of [facility] period in order to return to prior [...] fall that lead to L ankle injury. Status upon Discharge: Progress made toward goals: Discontinue PT Goals: Patient Reported Outcome Goals Lower Extremity Functional Scale Goal: 75 Lower Extremity Functional Scale Goal Status: Discontinue, achieved score of 53/80 OP PT Goals Goal 1: Patient will demonstrate I with HEP for 3 consecutive weeks in order to improve fun ctional outcomes with physical therapy. Goal 1 Status: Goal met; Goal 2: Patient will improve L ankle ROM equal to or greater than R ankle Goal 2 Status: Goal met Goal 3: Patient will tolerate walking for 1 mile without taking breaks due to pain to retur n to previous level of activity. Goal 3 Status: Discontinue; able to ambulate .5 miles prior to onset of increased pain symp toms Goal 4: Patient will experience reduced L ankle pain of 1/10 or less for 2 consecutive week s in order to return to previous level of activity. Goal 4 Status: Discontinue; pain rated at 4/10 today Goals: Plan Discharge from skilled therapy services with some Goals Met Nick Barrios PT Patient Name: Andrea King Angeli/: 1990/ signed by Erika Ernst DO at 10/25/2018 5:20 PM PSTNick Barrios I PT - 10/25/2018 2: 45 PM PST [facility] PT [address] [place] [address] Physical Therapy Daily Treatment Note Date: 10/25/2018 Patient Information Patient Name: Andrea Suh Date of : 1990 Age: 28 y.o. Encounter Diagnoses Code Name Primary? S93.402D Sprain of left ankle, subsequent encounter Yes Date of Onset: 06/11/2018 Referring Provider: Erika Ernst DO Objective Pain Assessment: Pain Rating Pre Assessment: 4 Pain Rating Post Assessment: 4 Location: L medial ankle Standardized Tests: Lower [...] socks: 4 - No difficulty Squattin - Moderate difficulty Lifting an object, like a bag of groceries from the floor: 4 - No difficulty Performing light activities around your home: 4 - No difficulty Performing heavy activities around your home: 2 - Moderate difficulty Getting into or out of a car: 4 - No difficulty Walking 2 blocks: 3 - A little bit of difficulty Walking a mile: 2 - Moderate difficulty Going up or down 10 stairs (about 1 flight of stairs): 2 - Moderate difficulty Standing for 1 hour: 2 - Moderate difficulty Sitting for 1 hour: 4 - No difficulty Running on even ground: 1 - Quite a bit of difficulty Running on uneven ground: 1 - Quite a bit of difficulty Making sharp turns while running fast: 1 - Quite a bit of difficulty Hoppin - Quite a bit of difficulty Rolling over in bed: 4 - No difficulty Lower Extremity Functional Scale Score (Calculated): 53 Lower Extremity Functional Scale Goal: 75 Lower Extremity Functional Scale Goal Status: Discontinue, achieved score of 53/80 Range of Motion (measured in degrees): LLE AROM (degrees) L Ankle Dorsiflexion 0-20: 11 L Ankle Plantar Flexion 0-45: 55 L Ankle Inversion 0-45: 40 L Ankle Eversion 0-25 : 21 RLE AROM (degrees) R Ankle Dorsiflexion 0-20: 6 R Ankle Plantar Flexion 0-45: 55 R Ankle Inversion 0-45: 38 R Ankle Eversion 0-25 : 20 Today's Treatment Patient Name: Andrea Suh/: 1990/ Start Time: 1300 Stop time: 1350 Duration: 50 minutes Timed Treatment Codes: 42 minutes # of PT Visits to Date: 20 Visit Summary: S: The inside of my L ankle still hurts. I walked for a mile and a half yest erday and my ankle started hurting after about a half of a mile. My ankle feels a little bit worse since I began physical therapy. I have been doing exercises at home; walking in the p ool seems to feel fine with my ankle. A: Patient tolerated LE strengthening exercises today without increased pain symptoms aside from when walking on treadmill for more than 8 minute s. Patient has not experienced significant improvements in pain symptoms since beginning ph ysical therapy, however, she did demonstrate improved L ankle ROM today. Due to reaching [facility] with improvement, patient is appropriate for discharge from physical therapy. Next Visit Information: d/c Therapy Interventions HEP: NEW: Body weight squats 3x15 progressing to 20 3x/wk, Walking lunges 3x8 progressing to 20 as tolerated 3x/wk, ONGOING: Standing lunges 3x10 progressing to 15 each LE 3x/wk, SL heel raise on step 3x15 3x/wk, Tandem gait as tolerated 4x/day, supine bridges 3x10 pro gressing to 15 4x/wk // Sidelying hip abduction 3x10 progressing to 15 4x/wk // Tandem stanc e 2x60 second holds each foot position 1x/day // Using RTB in door jam rather than holding o nto with hands. Discontinue PF with theraband in favor of SL heel raise with GERIATRIC PSYCHIATRIST. ONGOING: S LS on even surface 3x30 seconds 1x/day // Double leg heel raise 3x10 3x/wk // forward/later al step ups on 8" step 3x10 3x/wk each // standing achilles stretch 3x30 seconds 1x/day. // 4 way ankle PRE yellow theraband 3x10 each direction 3x/wk. // Ankle inversion/eversion 3x10 progressing to 20 1x/day // ankle ABC's 3x/day. // Ankle pumps 3x10 progressing to 20 repet itions 1x/day // ankle circles 3x10 progressing to 20 repetitions each direction 1x/day PT INTERVENTION 1: TE - (42 minutes) TM ambulation 9 minutes @ 1.1 mph, Walking lunges 3x2 0'; verbal/visual cues for correct form of exercises, Leg press heel raises 1x10 50 lbs, 2x 10 60 lbs, Leg press 1x10 80 lbs, 2x10 100 lbs, Body weight squats 2x15, additional time required for discharge plan of care recommendations, rest between exercises, patient require d cueing to perform exercises correctly. Assessment Rehabilitation potential: Patient demonstrates fair potential to achieve established goals and fair potential to achieve prior status to address the documented impairments by particip ating in skilled physical therapy services. Goals: Patient Reported Outcome Goals Lower Extremity Functional Scale Goal: 75 Lower Extremity Functional Scale Goal Status: Discontinue, achieved score of 53/80 OP PT Goals Goal 1: Patient will demonstrate I with HEP for 3 consecutive weeks in order to improve fun ctional outcomes with physical therapy. Goal 1 Status: Goal met; Goal 2: Patient will improve L ankle ROM equal to or greater than R ankle Goal 2 Status: Goal met Goal 3: Patient will tolerate walking for 1 mile without taking breaks due to pain to retur n to previous level of activity. Goal 3 Status: Discontinue; able to ambulate .5 miles prior to onset of increased pain symp toms Goal 4: Patient will experience reduced L ankle pain of 1/10 or less for 2 consecutive week s in order to return to previous level of activity. Goal 4 Status: Discontinue; pain rated at 4/10 today Electronically signed by: Nick Barrios PT, 10/25/2018 14:46 Patient Name: Andrea Suh/: 1990/ documented in [...] | | | | | [place] [address] | | | | | | [phone] | | | | | | | | +--------+ + + + + | 10/30/ | Office | Primary Care | Erika Ernst, | | | 2019 | Visit | | DO [address] | | | | | | [place] [address] | | | | | | [phone] | | | | | | | [...] [place] | | | | | | [address] | | | | | | [phone] | | | | | | | | +--------+ + + + + | 02/09/ | Office | Neurology | Dhara, | | | 2020 | Visit | | [address]WA[address] [place], | | | | | | [place] [address] | | | | | | [phone] | | | | | | | | +--------+ + + + + documented as of this encounter Visit Diagnoses + + | Diagnosis | + + | Sprain of left ankle, subsequent encounter - Primary | + + documented in this encounter
--- OUTSIDE RECORDS SUMMARY | ~2019-09-30 | XMS | Encounter Summary ---
Demographics + + + | Address | [address] | | | [place] [address] | + + + | Home Phone [...] Team Providers + +------+ + | Care Flavor Room Worker Name | Role | Phone [...] [phone] | | | | | [place] [address] | | | | | | [phone] | | | +--------+ + + + [...] | | | | | [place] [address] | | | | | | [phone] | | | | | | | | +--------+ + + + + | 10/30/ | Office | Primary Care | Erika Ernst, | | | 2019 | Visit | | DO [address] | | | | | | [place] [address] | | | | | | [phone] | | | | | | | [...] [place] | | | | | | [address] | | | | | | [phone] | | | | | | | | +--------+ + + + + | 02/09/ | Office | Neurology | Dhara, | | | 2019 | Visit | | [address]WA[address] Ross [address] [place], | | | | | | [place] [address] | | | | | | [phone] | | | | | | | | +--------+ + + + + documented as of this encounter Visit Diagnoses Not on filedocumented in this encounter"
--- OUTSIDE RECORDS SUMMARY | ~2019-09-30 | XMS | Encounter Summary ---
Demographics + + + | Address | [address] | | | [place] [address] | + + + | Home Phone [...] Team Providers + +------+ + | Care Hand Plate Stacker Name | Role | Phone | + +------+ + PCP | Unavailable | + +------+ + Encounter Details +--------+ + + + + | Date | Type | Department | Care Team | Description | +--------+ + + + + | 09/16/ | [facility] | [facility] | Erika Ernst, | | | 2016 | Encounter | [facility] | DO [address] | | | | | [facility] [address] | [place] [address] | | | | | [address] [place], | [phone] | | | | | [place] [address] | | | | | | [phone] | | | +--------+ + + + [...] | | | | | [place] [address] | | | | | | [phone] | | | | | | | | +--------+ + + + + | 10/30/ | Office | Primary Care | Erika Ernst, | | | 2019 | Visit | | DO [address] | | | | | | [place] [address] | | | | | | [phone] | | | | | | | [...] [place] | | | | | | [address] | | | | | | [phone] | | | | | | | | +--------+ + + + + | 02/09/ | Office | Neurology | Dhara, | | | 2019 | Visit | | [address]WA[address] Ross [address] [place], | | | | | | [place] [address] | | | | | | [phone] | | | | | | | | +--------+ + + + + documented as of this encounter Visit Diagnoses Not on filedocumented in this encounter"
--- OUTSIDE RECORDS SUMMARY | ~2019-09-30 | XMS | Encounter Summary ---
Demographics + + + | Address | [address] | | | [place] [address] | + + + | Home Phone [...] Team Providers + +------+ + | Care Button Spindler Name | Role | Phone | + [...] + + | 09/26/ | Telephone | [facility] | OksanaJeffrey Donte, | Other | | 2018 | | [address] | [address] | | | | | [address] [place], [place] | [place] [address] | | | | | [address] | [phone] | | | | | [phone] | | | +--------+ + + + [...] | | | | | [place] [address] | | | | | | [phone] | | | | | | | | +--------+ + + + + | 10/30/ | Office | Primary Care | Erika Ernst, | | | 2019 | Visit | | DO [address] | | | | | | [place] [address] | | | | | | [phone] | | | | | | | [...] [place] | | | | | | [address] | | | | | | [phone] | | | | | | | | +--------+ + + + + | 02/09/ | Office | Neurology | Dhara, | | | 2020 | Visit | | [address]WA[address] Ross [address] | | [address] [place], | | | | | | [place] [address] | | | | | | [phone] | | | | | | | | +--------+ + + + + documented as of this encounter Visit Diagnoses Not on filedocumented in this encounter"
--- OUTSIDE RECORDS SUMMARY | ~2019-09-30 | XMS | Encounter Summary ---
Demographics + + + | Address | [address] | | | [place] [address] | + + + | Home Phone [...] Providers + +------+ + | Care Visual Manager Name | Role | Phone | [...] [facility] | DO [address] [place] | Dx); Asthma due to | | | | MED[facility] [address] | [place] [address] | environmental | | | | [address] [place], | [phone] | allergies | | | | [place] [address] | | | | | | [phone] | | | +--------+---------+ + + + [...] weeks ago and went to ER in [place] but has recovered. No chest pain or [...] | | | | | [place] [address] | | | | | | [phone] | | | | | | | | +--------+ + + + + | 10/30/ | Office | Primary Care | Erika Ernst, | | | 2019 | Visit | | DO [address] | | | | | | [place] [address] | | | | | | [phone] | | | | | | | [...] [place] | | | | | | [address] | | | | | | [phone] | | | | | | | | +--------+ + + + + | 02/09/ | Office | Neurology | Dhara, | | | 2020 | Visit | | [address] | | | | | | [address] [facility] [place], | | | | | | [place] [address] | | | | | | [phone] | | | | | | | | +--------+ + + + + documented as of this encounter Visit Diagnoses + + | Diagnosis | + + | Sunburn - Primary | + + | Asthma due to environmental allergies | + + documented in this encounter
--- OUTSIDE RECORDS SUMMARY | ~2019-09-30 | XMS | Encounter Summary ---
Demographics + + + | Address | [address] | | | [place] [address] | + + + | Home Phone [...] Providers + +------+ + | Care Insurance Processing Clerk Name | Role | Phone | [...] | | | MEDICAL [facility] [address] | [place] [address] | | | | | [address] [facility], | [phone] | | | | | [place] [address] | | | | | | [phone] | | | +--------+ + + + [...] | | | | | [place] [address] | | | | | | [phone] | | | | | | | | +--------+ + + + + | 10/30/ | Office | Primary Care | Erika Ernst, | | | 2019 | Visit | | DO [address] | | | | | | [place] [address] | | | | | | [phone] | | | | | | | [...] [place] | | | | | | [address] | | | | | | [phone] | | | | | | | | +--------+ + + + + | 02/09/ | Office | Neurology | Dhara, | | | 2019 | Visit | | [address]WA[address] Ross [address] | | | | [address] [place], | | | | | | [place] [address] | | | | | | [phone] | | | | | | | | +--------+ + + + + documented as of this encounter Visit Diagnoses Not on filedocumented in this encounter"
--- OUTSIDE RECORDS SUMMARY | ~2019-09-30 | XMS | Encounter Summary ---
Demographics + + + | Address | [address] | | | [place] [address] | + + + | Home Phone [...] Providers + +------+ + | Care Nurse Emergency Name | Role | Phone | + [...] [address] [place] | [place] [address] | | | | | [place], [place] | [phone] | | | | | [address] | | | | | | [phone] | | | +--------+ + + + [...] | | | | | [place] [address] | | | | | | [phone] | | | | | | | | +--------+ + + + + | 10/30/ | Office | Primary Care | Erika Ernst, | | | 2019 | Visit | | DO [address] | | | | | | [place] [address] | | | | | | [phone] | | | | | | | [...] [place] | | | | | | [address] | | | | | | [phone] | | | | | | | | +--------+ + + + + | 02/09/ | Office | Neurology | Dhara, | | | 2019 | Visit | | [place], [address] | | | | | | [address] [facility], | | | | | | [place] [address] | | | | | | [phone] | | | | | | | [...]
--- OUTSIDE RECORDS SUMMARY | ~2019-09-30 | XMS | Encounter Summary ---
Demographics + + + | Address | [address] | | | [place] [address] | + + + | Home Phone [...] Team Providers + +------+ + | Care Educational Resource Coordinator Name | Role | Phone | + +------+ + PCP | Unavailable | + +------+ + Encounter Details +--------+ + + + + | Date | Type | Department | Care Team | Description | +--------+ + + + + | 10/13/ | [facility] | Bo Bhat | | | 2013 | Encounter | [facility] | [address] | | | | | CENTER [address] [place], [place] | | | | | DR [place], [place] | [address] | | | | | [address] | | | | | | [phone] | | | +--------+ + + + [...] | | | | | [place] [address] | | | | | | [phone] | | | | | | | | +--------+ + + + + | 10/30/ | Office | Primary Care | Erika Ernst, | | | 2019 | Visit | | DO [address] | | | | | | [place] [address] | | | | | | [phone] | | | | | | | [...] [place] | | | | | | [address] | | | | | | [phone] | | | | | | | | +--------+ + + + + | 02/09/ | Office | Neurology | Dhara, | | | 2020 | Visit | | DWA[address] | | [address] [place], | | | | | | [place] [address] | | | | | | [phone] | | | | | | | | +--------+ + + + + documented as of this encounter Visit Diagnoses Not on filedocumented in this encounter"
--- OUTSIDE RECORDS SUMMARY | ~2019-09-30 | XMS | Encounter Summary ---
Demographics + + + | Address | [address] | | | [place] [address] | + + + | Home Phone [...] Team Providers + +------+ + | Care Nursing Informatics Clinical Analyst Name | Role | Phone | [...] Essential | | 2018 | Visit | [facility] | DO [address] | hypertension | | | | MEDICAL CLINIC [facility] | [place] [address] | (Primary Dx); Left | | | | [address] [place], | [phone] | acute otitis media; | | | | [place] [address] | | Increased risk of | | | | [phone] | | breast cancer; | | | | | | Screening for breast | | | | | | cancer; Class 3 | | | | | [...] + + + | Blood Pressure | 140/90 | 09/27/2018 4:05 PM | | | | | PST | | + + + + + | Pulse | 88 | 09/27/2018 4:05 PM | | | | | PST | | + + + + + | Temperature | - | - | | + + + + + | Respiratory Rate | 16 | 09/27/2018 4:05 PM | | | | | PST | | + + + + + | Oxygen Saturation | 98% | 09/27/2018 4:05 PM | | | | | PST | | + + + + + | Inhaled Oxygen | - | - | | | Concentration | | | | + + + + + | Weight | 154.2 kg (340 lb) | 09/27/2018 4:05 PM | | | | | PST | | + + + + + | Height | 177.8 cm (5' 10") | 09/27/2018 4:05 PM | | | | | PST | | + + + + + | Body Mass Index | 48.78 | 09/27/2018 4:05 PM | | | | | PST | | + + + + + documented in this encounter Progress Erika Cespedes DO - 09/27/2018 4:00 PM PSTFormatting of this note might be different fro m the original. Subjective: Patient ID: Andrea Suh is a 28 y.o. female. Here to FU from her genetic testing by specialist and she had her appointment today to martell fu those results. She was informed that she has increased risk breast cancer due to some mar kers and family HX. Risk should be at 13 % for age and she was determined to be at 42 % risk . Mammogram is recommended. She also has increased risk for skin cancer and she has appointm ent with Dermatology for complete skin check. She is to improve overall health. She must los t wt and we have discussed and she feels she can not work on exercise at present due to stil l doing rehab on her ankle. She states she knows the diet to follow. BP is still up some wit h and she did not increase the toprol, states it made her feel dizzy. She is taking the 50 m g dose. She states at doctors office today BP was systolic 126 and at the dentist last week was actually too low at systolic 101. She declines to increase med dose higher at this time. She will continue low salt diet. She has had ear pain on the left for a week now getting wo rse with sore throat. No cough. Afebrile. Review of Systems Constitutional: Negative. HENT: Positive for ear pain and sore throat. Negative for sinus pain and trouble swallowing . Eyes: Negative. Respiratory: Negative. Cardiovascular: Negative. Gastrointestinal: Negative. Psychiatric/Behavioral: Negative. Social [...] Tape Rash Outpatient Encounter Prescriptions as of 09/27/2018 Medication Sig Dispense Refill albuterol-ipratropium (COMBIVENT RESPIMAT) 100-20 mcg/puff inhaler Inhale 1 puff into t he lungs every 4 hours as needed for Shortness of Breath. 1 Inhaler 5 amLODIPine (NORVASC) 10 MG tablet Take 1 tablet by mouth Daily. 30 tablet 11 amoxicillin-clavulanate (AUGMENTIN) 875-125 mg per tablet Take 1 tablet by mouth 2 time s daily for 10 days. 20 tablet 0 beclomethasone (QVAR) 80 mcg/puff inhaler [...] spray 1 spray by Nasal route Daily. [DISCONTINUED] metoprolol succinate (TOPROL-XL) 100 mg ER tablet Take 1 tablet by mouth Daily. 30 tablet 11 metoprolol succinate (TOPROL-XL) 50 mg 24 hr tablet take 1 tablet by mouth daily 90 tab let 3 montelukast (SINGULAIR) 10 mg tablet Take 1 tablet by mouth nightly. 30 tablet 11 [DISCONTINUED] nystatin (MYCOSTATIN) 100,000 units/mL suspension Swish and swallow 5 ml four times daily up to 48 hours after symptoms resolve Indications: Candidiasis Fungal Inf ection of the Oropharynx 180 mL 1 No facility-administered encounter medications on file as of 09/27/2018. Objective: BP 140/90 | Pulse 88 | Resp 16 | Ht 1.778 m (5' 10") | Wt (!) 154.2 kg (340 lb) | SpO2 98% | ? No | BMI 48.78 kg/m Physical Exam Constitutional: She is oriented to person, place, and time. She appears well-developed and well-nourished. No distress. HENT: Head: Normocephalic and atraumatic. Right Ear: External ear normal. Left Ear: External ear normal. Mouth/Throat: Oropharynx is clear and moist. No oropharyngeal exudate. Left TM red and bulging, no drng. Right TM clear Eyes: Pupils are equal, round, and [...] respiratory distress. Musculoskeletal: She exhibits no deformity. Lymphadenopathy: She has no cervical adenopathy. Neurological: She is alert and oriented to person, place, and time. Skin: Skin is warm and dry. Psychiatric: She has a normal mood and affect. Her behavior is normal. Judgment and thought content normal. Assessment: 1. Essential hypertension 2. Left acute otitis media 3. Increased risk of breast cancer 4. Screening for breast cancer JERMAIN Tomosynthesis Screening Bilateral 5. Class 3 severe obesity due to excess calories without serious comorbidity with body mass index (BMI) of 50.0 to 59.9 in adult ([facility]) Plan: Continue current BP med's and monitor. She is concerned that she actually gets too low at t imes. Augmentin 875 Mg BID X 10 days for ear infection. Mammogram. Encouraged wt loss. documented in this en counter Plan of Treatment +--------+ + + + + | Date | Type | Specialty | Care Team | Description | +--------+ + + + + | 10/01/ | Office | Primary Care | Erika Ernst, | | | 2018 | Visit | | DO [address] [place] [address] | | | | | | [place] [address] | | | | | | [phone] | | | | | | | | +--------+ + + + + | 10/30/ | Office | Primary Care | Erika Ernst, | | | 2019 | Visit | | DO [address] | | | | | | [place] [address] | | | | | | [phone] | | | | | | | [...] [place] | | | | | | [address] | | | | | | [phone] | | | | | | | | +--------+ + + + + | 02/09/ | Office | Neurology | Dhara, | | | 2019 | Visit | | DWAINE Ross [address] | | | | | [address] [place], | | | | | | [place] [address] | | | | | | [phone] | | | | | | | | +--------+ + + + + documented as of this encounter Results JERMAIN Tomosynthesis Screening Bilateral [...] Unspecified essential hypertension | + + | Left acute otitis media Unspecified otitis media | + + | Increased risk of breast cancer Other specified personal history presenting hazards | | to health | + + | Screening for breast cancer Breast screening, unspecified | + + | Class 3 severe obesity due to excess calories without serious comorbidity with body | | mass index (BMI) of 50.0 to 59.9 in adult (HCC) | + + documented in this encounter
--- OUTSIDE RECORDS SUMMARY | ~2019-09-30 | XMS | Encounter Summary ---
Demographics + + + | Address | [address] | | | [place] [address] | + + + | Home Phone [...] Team Providers + +------+ + | Care Purchasing Engineer Name | Role | Phone | [...] Medication Prior | | 2018 | | [facility] | [address] | Authorization | | | | MEDICAL CLINIC [address] | [place] [address] | (Metoprolol | | | | [address] [place], | [phone] | Succinate ER 100 mg | | | | [place] [address] | | ) | | | | [phone] | | | +--------+ + + + [...] | | | | | [place] [address] | | | | | | [phone] | | | | | | | | +--------+ + + + + | 10/30/ | Office | Primary Care | Erika Ernst, | | | 2019 | Visit | | DO [address] | | | | | | [place] [address] | | | | | | [phone] | | | | | | | [...] [place] | | | | | | [address] | | | | | | [phone] | | | | | | | | +--------+ + + + + | 02/09/ | Office | Neurology | Dhara, | | | 2020 | Visit | | DWAINE Ross [address] | | | | | [address] [place], | | | | | | [place] [address] | | | | | | [phone] | | | | | | | | +--------+ + + + + documented as of this encounter Visit Diagnoses Not on filedocumented in this encounter"
--- OUTSIDE RECORDS SUMMARY | ~2019-09-30 | XMS | Encounter Summary ---
Demographics + + + | Address | [address] | | | [place] [address] | + + + | Home Phone [...] Providers + +------+ + | Care Assembler Plastic Boat Name | Role | Phone | + [...] | | | | severe | [place] [address] | [place] | | | | | obesity due | Phone: | [address] | | | | | to excess | [phone] | Phone: | | | | | calories | Fax: | [phone] | | | | | without | [phone] | Fax: | | | | | serious | | [phone] | | | | | comorbidity | [...] | | | | | | | ME MED NUTR | | | | | | | THER, 1ST, | | | | | | | INDIV, EA 15 | | | | | | | MIN ME MED | | | | | | [...] | | | | Procedures | [place] [address] | [place] [address] | | | | | PT EVAL | Phone: | Phone: | | | | | | [phone] | [phone] | | | | | | Fax: | Fax: | | | | | | [phone] | [phone] | +--------+ + + + + + Reason for Visit + + + | Reason | Comments | + + + | Knee Pain | | + + + Encounter Details +--------+---------+ + + + | Date | Type | Department | Care Team | Description | +--------+---------+ + + + | 11/08/ | Office | [place] [facility] | Erika Ernst, | Acute pain of right | | 2019 | Visit | [facility] | DO [address] | knee (Primary Dx); | | | | MEDICAL CLINIC [address] | [place] [address] | Essential | | | | [address] [place], | [phone] | hypertension; Class | | | | [place] [address] | | 3 severe obesity due | | | | [phone] | | to excess calories | | [...] is here today to FU on a [facility] visit for a fall at [facility] ( she does not work there) where she was eating at 10 PM and slipped on the floor sofía g on the right knee. States has some intermittent pain still but no redness, bruising or wea kness. She had normal Xray done per the [facility]. She would like PT to take a [...] Acute pain of right knee * [place] [facility] 2. Essential hypertension * [place] [facility] - AMB Referral 3. Class 3 severe obesity due to excess calories without serious comorbidity with body mass index (BMI) of 50.0 to 59.9 in adult (HCC) * [place] [facility] - [facility] Referral Plan: Have [...] | | | | | [place] [address] | | | | | | [phone] | | | | | | | | +--------+ + + + + | 10/30/ | Office | Primary Care | Erika Ernst, | | | 2019 | Visit | | DO [address] [place] | | | | | | [place] [address] | | | | | | [phone] | | | | | | | [...] [place] | | | | | | [address] | | | | | | [phone] | | | | | | | | +--------+ + + + + | 02/09/ | Office | Neurology | Dhara, | | | 2019 | Visit | | DWAINE Ross [address] | | | | [address] [place], | | | | | | [place] [address] | | | | | | [phone] | | | | | | | [...]
--- OUTSIDE RECORDS SUMMARY | ~2019-09-30 | XMS | Encounter Summary ---
Demographics + + + | Address | [address] | | | [place] [address] | + + + | Home Phone [...] Team Providers + +------+ + | Care Construction Specialist Name | Role | Phone | + +------+ + PCP | Unavailable | + +------+ + Encounter Details +--------+ + + + + | Date | Type | Department | Care Team | Description | +--------+ + + + + | 04/12/ | [facility] | [facility] | Jenise Benitez, | | | 2016 | Encounter | [facility] | WILDLIFE CONSERVATION OFFICER [address] [place] | | | | | MEDICAL CLINIC [address] | [place] [address] | | | | | [address] [place], | [phone] | | | | | [place] [address] | | | | | | [phone] | | | +--------+ + + + [...] | | | | | [place] [address] | | | | | | [phone] | | | | | | | | +--------+ + + + + | 10/30/ | Office | Primary Care | Erika Ernst, | | | 2019 | Visit | | DO [address] | | | | | | [place] [address] | | | | | | [phone] | | | | | | | | +--------+ + + + + | 11/07/ | Appointment | Nutrition | Janel Webster | | | 2019 | | | [place] | | +--------+ + + + + | 11/28/ | Office | Otolaryngology | Anthony Alvarado MD | | | 2019 | Visit | | [address] | | | | | | [place], [place] | | | | | | [address] | | | | | | [phone] | | | | | | | | +--------+ + + + + | 02/09/ | Office | Neurology | Dhara, | | | 2019 | Visit | | DWAINE Ross [address] | | | | | | [address] [place], | | | | | | [place] [address] | | | | | | [phone] | | | | | | | | +--------+ + + + + documented as of this encounter Visit Diagnoses Not on filedocumented in this encounter"
--- OUTSIDE RECORDS SUMMARY | ~2019-09-30 | XMS | Encounter Summary ---
Demographics + + + | Address | [address] | | | [place] [address] | + + + | Home Phone [...] Providers + +------+ + | Care Quality Assurance Supervisor Chassis Name | Role | Phone | + [...] + + | 09/29/ | Office | [facility] | Nicanor Mckeon | Flu-like symptoms | | 2019 | Visit | [facility] | MD Caryn [address] | (Primary Dx) | | | | [facility] [address] | [place], [place] | | | | | [address] [facility], | [address] | | | | | [place] [address] | [phone] | | | | | [phone] | | | +--------+---------+ + + + [...] | | | | | [place] [address] | | | | | | [phone] | | | | | | | | +--------+ + + + + | 10/30/ | Office | Primary Care | Erika Ernst, | | | 2019 | Visit | | DO [address] | | | | | | [place] [address] | | | | | | [phone] | | | | | | | [...] [place] | | | | | | [address] | | | | | | [phone] | | | | | | | | +--------+ + + + + | 02/09/ | Office | Neurology | Dhara, | | | 2019 | Visit | | [facility] [address] | | | | | | [address]TH [facility], | | | | | | [place] [address] | | | | | | [phone] | | | | | | | | +--------+ + + + + documented as of this encounter Visit Diagnoses + + | Diagnosis | + + | Flu-like symptoms - Primary Influenza with other respiratory manifestations | + + documented in this encounter"
--- OUTSIDE RECORDS SUMMARY | ~2019-09-30 | XMS | Encounter Summary ---
Demographics + + + | Address | [address] | | | [place] [address] | + + + | Home Phone [...] Team Providers + +------+ + | Care Kalsominer Name | Role | Phone | + +------+ + PCP | Unavailable | + +------+ + Encounter Details +--------+ + + + + | Date | Type | Department | Care Team | Description | +--------+ + + + + | [facility] Denise Mcgregor | | | 2016 | Encounter | [facility] | G, AIR GUN OPERATOR [address] | | | | | MEDICAL CLINIC [address] | [place] | | | | | [address] [facility], | [address] | | | | | [place] [address] | [phone] | | | | | [phone] | | | +--------+ + + + [...] | | | | | [place] [address] | | | | | | [phone] | | | | | | | | +--------+ + + + + | 10/30/ | Office | Primary Care | Erika Ernst, | | | 2019 | Visit | | DO [address] [place] | | | | | | [place] [address] | | | | | | [phone] | | | | | | | [...] [place] | | | | | | [address] | | | | | | [phone] | | | | | | | | +--------+ + + + + | 02/09/ | Office | Neurology | Dhara, | | | 2020 | Visit | | DWAINE Ross [address] | | | | | [address] [place], | | | | | | [place] [address] | | | | | | [phone] | | | | | | | | +--------+ + + + + documented as of this encounter Visit Diagnoses Not on filedocumented in this encounter"
--- OUTSIDE RECORDS SUMMARY | ~2019-09-30 | XMS | Encounter Summary ---
Demographics + + + | Address | [address] | | | [place] [address] | + + + | Home Phone [...] Team Providers + +------+ + | Care Research Dairy Farm Supervisor Name | Role | Phone | [...] Vaccines | | 2019 | | [facility] | DO [address] | | | | | MEDICAL CLINIC [address] | [place] [address] | | | | | [address] [place], | [phone] | | | | | [place] [address] | | | | | | [phone] | | | +--------+ + + + [...] | | | | | [place] [address] | | | | | | [phone] | | | | | | | | +--------+ + + + + | 10/30/ | Office | Primary Care | Erika Ernst, | | | 2019 | Visit | | DO [address] [place] | | | | | | [place] [address] | | | | | | [phone] | | | | | | | [...] [place] | | | | | | [address] | | | | | | [phone] | | | | | | | | +--------+ + + + + | 02/09/ | Office | Neurology | Dhara, | | | 2019 | Visit | | DWAINE Ross [address] | | | | | | [address] [place], | | | | | | [place] [address] | | | | | | [phone] | | | | | | | | +--------+ + + + + documented as of this encounter Visit Diagnoses Not on filedocumented in this encounter"
--- OUTSIDE RECORDS SUMMARY | ~2019-09-30 | XMS | Encounter Summary ---
Demographics + + + | Address | [address] | | | [place] [address] | + + + | Home Phone [...] Team Providers + +------+ + | Care Xerox Machine Operator Name | Role | Phone [...] | | | MEDICAL CLINIC [address] | [place] [address] | | | | | [address] [place], | [phone] | | | | | [place] [address] | | | | | | [phone] | | | +--------+ + + + [...] | | | | | [place] [address] | | | | | | [phone] | | | | | | | | +--------+ + + + + | 10/30/ | Office | Primary Care | Erika Ernst, | | | 2019 | Visit | | DO [address] | | | | | | [place] [address] | | | | | | [phone] | | | | | | | [...] [place] | | | | | | [address] | | | | | | [phone] | | | | | | | | +--------+ + + + + | 02/09/ | Office | Neurology | Dhara, | | | 2020 | Visit | | DWAINE Ross [address] | | | | | | [address] [place], | | | | | | [place] [address] | | | | | | [phone] | | | | | | | | +--------+ + + + + documented as of this encounter Visit Diagnoses Not on filedocumented in this encounter"
--- OUTSIDE RECORDS SUMMARY | ~2019-09-30 | XMS | Encounter Summary ---
Demographics + + + | Address | [address] | | | [place] [address] | + + + | Home Phone [...] Team Providers + +------+ + | Care Chute Loader Name | Role | Phone | [...] + + + + | 11/28/ | Telephone | [place] [facility] | Veronica Huerta, | Blood Pressure | | 2019 | | [facility] | [facility] | | | | | MEDICAL CLINIC [address] | | | | | | [address] [facility] [place], | | | | | | [place] [address] | | | | | | [phone] | | | +--------+ + + + [...] | | | | | [place] [address] | | | | | | [phone] | | | | | | | | +--------+ + + + + | 10/30/ | Office | Primary Care | Erika Ernst, | | | 2019 | Visit | | DO [address] [place] | | | | | | [place] [address] | | | | | | [phone] | | | | | | | [...] [place] | | | | | | [address] | | | | | | [phone] | | | | | | | | +--------+ + + + + | 02/09/ | Office | Neurology | Dhara, | | | 2019 | Visit | | DWAINE Ross [address] | | | | | | [address] [place], | | | | | | [place] [address] | | | | | | [phone] | | | | | | | | +--------+ + + + + documented as of this encounter Visit Diagnoses Not on filedocumented in this encounter"
--- OUTSIDE RECORDS SUMMARY | ~2019-09-30 | XMS | Encounter Summary ---
Demographics + + + | Address | [address] | | | [place] [address] | + + + | Home Phone [...] Team Providers + +------+ + | Care De Alcoholizer Name | Role | Phone | + [...] | +--------+ + + + + | 04/01/ | Telephone | [place] [facility] | Emily Avery | Advice Only | | 2019 | | [facility] | DO Radha [address] | | | | | [address] | | | | | [address], | [place], [place] | | | | | [place] [address] | [address] | | | | | [phone] | [phone] | | | | | | | [...] Visit | | DO [address] [place] | | | | | | [place] [address] | | | | | | [phone] | | | | | | | | +--------+ + + + + | 10/30/ | Office | Primary Care | Erika Ernst, | | | 2019 | Visit | | DO [address] [place] | | | | | | [place] [address] | | | | | | [phone] | | | | | | | [...] [place] | | | | | | [address] | | | | | | [phone] | | | | | | | | +--------+ + + + + | 02/09/ | Office | Neurology | Dhara, | | | 2019 | Visit | | DWAINE Ross [address] | | | | | | [address] [place], | | | | | | [place] [address] | | | | | | [phone] | | | | | | | | +--------+ + + + + documented as of this encounter Visit Diagnoses Not on filedocumented in this encounter"
--- OUTSIDE RECORDS SUMMARY | ~2019-09-30 | XMS | Encounter Summary ---
Demographics + + + | Address | [address] | | | [place] [address] | + + + | Home Phone [...] Providers + +------+ + | Care Manufacturing Test Engineer Name | Role | Phone [...] | | | PT TREAT | [place] [address] | [place] [address] | | | | | | Phone: | Phone: | | | | | | [phone] | [phone] | | | | | | Fax: | Fax: | | | | | | [phone] | [phone] | +--------+--------+ + + + + Encounter [...] [address] [place] | [place] [address] | History of falling; | | | | [place], [place] | [phone] | Sprain of | | | | [address] | | calcaneofibular | | | | [phone] | Julia Fisher, | ligament of left [...] | 11/26/19 | | | (VITAMIN D3) [address]65[address] | mouth Once a week | tablet [...] Fisher PT - 01/23/2019 9:19 AM PDT THERAPY PT [address] [place] [address] Physical Therapy Progress Assessment Date: 01/23/2019 Patient [...] Seated marching 1minx2. LAQ Ongoing: Wall sits [id number] holds, Bridging 3 x 10 reps, Side [...] | | | | | [place] [address] | | | | | | [phone] | | | | | | | | +--------+ + + + + | 10/30/ | Office | Primary Care | Erika Ernst, | | | 2019 | Visit | | DO [address] [place] | | | | | | [place] [address] | | | | | | [phone] | | | | | | | [...] [place] | | | | | | [address] | | | | | | [phone] | | | | | | | | +--------+ + + + + | 02/09/ | Office | Neurology | Dhara, | | | 2019 | Visit | | DWAINE Ross [address] | | | | | | [address] [place], | | | | | | [place] [address] | | | | | | [phone] | | | | | | | [...]
--- OUTSIDE RECORDS SUMMARY | ~2019-09-30 | XMS | Encounter Summary ---
Demographics + + + | Address | [address] | | | [place] [address] | + + + | Home Phone [...] Providers + +------+ + | Care Boiler House Operator Name | Role | Phone | + +------+ + | Erika Ernst DO | PCP | | + +------+ + Reason for Visit +--------+ + | Reason | Comments | +--------+ + | Other | Work release letter | +--------+ + Encounter Details +--------+ + + + + | Date | Type | Department | Care Team | Description | +--------+ + + + + | 02/15/ | Telephone | [place] [facility] | Inocencio Noriega | Other (Work release | | 2019 | | [facility] | MD [address] | letter) | | | | [address] [place] | [address] | | | | | [place] | [place] [address] | | | | | [address] | [phone] | | | | | [phone] | | | +--------+ + + + [...] | | | | | [place] [address] | | | | | | [phone] | | | | | | | | +--------+ + + + + | 10/30/ | Office | Primary Care | Erika Ernst, | | | 2019 | Visit | | DO [address] [facility] [address] [place] | | | | | | [place] [address] | | | | | | [phone] | | | | | | | [...] [place] | | | | | | [address] | | | | | | [phone] | | | | | | | | +--------+ + + + + | 02/09/ | Office | Neurology | Dhara, | | | 2019 | Visit | | DWAINE Ross [address] | | | | | | [address] [place], | | | | | | [place] [address] | | | | | | [phone] | | | | | | | | +--------+ + + + + documented as of this encounter Visit Diagnoses Not on filedocumented in this encounter"
--- OUTSIDE RECORDS SUMMARY | ~2019-09-30 | XMS | Encounter Summary ---
Demographics + + + | Address | [address] | | | [place] [address] | + + + | Home Phone [...] Team Providers + +------+ + | Care Edge Worker Name | Role | Phone | [...] | +--------+ + + + + | 08/27/ | Telephone | [place] [facility] | Erika Ernst, | Referral | | 2019 | | [facility] | DO [address] [place] | | | | | MEDICAL CLINIC [address] | [place] [address] | | | | | [address] [place], | [phone] | | | | | [place] [address] | | | | | | [phone] | | | +--------+ + + + [...] | | | | | [place] [address] | | | | | | [phone] | | | | | | | | +--------+ + + + + | 10/30/ | Office | Primary Care | Erika Ernst, | | | 2019 | Visit | | DO [address] [place] | | | | | | [place] [address] | | | | | | [phone] | | | | | | | [...] [place] | | | | | | [address] | | | | | | [phone] | | | | | | | | +--------+ + + + + | 02/09/ | Office | Neurology | [place], | | | 2020 | Visit | | DWAINE [address] [place], | | | | | | [place] [address] | | | | | | [phone] | | | | | | | | +--------+ + + + + documented as of this encounter Visit Diagnoses Not on filedocumented in this encounter"
--- OUTSIDE RECORDS SUMMARY | ~2019-09-30 | XMS | Encounter Summary ---
Demographics + + + | Address | [address] | | | [place] [address] | + + + | Home Phone [...] Team Providers + +------+ + | Care Table Games Dual Rate Supervisor Name | Role | Phone | + +------+ + PCP | Unavailable | + +------+ + Encounter Details +--------+ + + + + | Date | Type | Department | Care Team | Description | +--------+ + + + + | 09/08/ | [facility] | Jessica Hoang, | | | 2013 | Encounter | [facility] | [address] | | | | | CENTER [address] | [place] | | | | | [place] | [address] | | | | | [address] | | | | | | [phone] | | | +--------+ + + + [...] | | | | | [place] [address] | | | | | | [phone] | | | | | | | | +--------+ + + + + | 10/30/ | Office | Primary Care | Erika Ernst, | | | 2019 | Visit | | DO [address] | | | | | | [place] [address] | | | | | | [phone] | | | | | | | [...] [place] | | | | | | [address] | | | | | | [phone] | | | | | | | | +--------+ + + + + | 02/09/ | Office | Neurology | Dhara, | | | 2020 | Visit | | [address] | | | | | [address] [place], | | | | | | [place] [address] | | | | | | [phone] | | | | | | | | +--------+ + + + + documented as of this encounter Visit Diagnoses Not on filedocumented in this encounter"
--- OUTSIDE RECORDS SUMMARY | ~2019-09-30 | XMS | Encounter Summary ---
Demographics + + + | Address | [address] | | | [place] [address] | + + + | Home Phone [...] Team Providers + +------+ + | Care Financial Planning Assistant Name | Role | Phone | [...] | HOLTER | [place], | [place] | | | | | MONITOR - [address] | [place] | [address] | | | | | WEEK | [address] | Phone: | | | | | | Phone: | [phone] | | | | | | [phone] | Fax: | | | | | | Fax: | [phone] | | | | | | [phone] | | +--------+--------+ + + + + Encounter Details +--------+ + + + + | Date | Type | Department | Care Team | Description | +--------+ + + + + | 02/04/ | Hospital | [facility] | Erika Ernst, | Heart palpitations | | 2018 | Encounter | HOSPITAL NUCLEAR | DO [address] | | | | | MEDICINE [address] | [place] [address] | | | | | DR [place], [place] | [phone] | | | | | [address] | | | | | | [phone] | | | +--------+ + + + [...] | 11/26/19 | | | (VITAMIN D3) 25202 | mouth Once a week | tablet [...] days. Neyda rich will mail recorder to [employer] when done to be scanned.Electronically susana d [...] | | | | | [place] [address] | | | | | | [phone] | | | | | | | | +--------+ + + + + | 10/30/ | Office | Primary Care | Erika Ernst, | | | 2019 | Visit | | DO [address] | | | | | | [place] [address] | | | | | | [phone] | | | | | | | [...] [place] | | | | | | [address] | | | | | | [phone] | | | | | | | | +--------+ + + + + | 02/09/ | Office | Neurology | Dhara, | | | 2019 | Visit | | [address] | | | | | [address] [place], | | | | | | [place] [address] | | | | | | [phone] | | | | | | | [...] | + +---------+ + + | MICHAEL WGR TRACEMASTER | | | | + +---------+ + + documented in this encounter Visit Diagnoses + + | Diagnosis | + + | Heart palpitations Palpitations | + + documented in this encounter"
--- OUTSIDE RECORDS SUMMARY | ~2019-09-30 | XMS | Encounter Summary ---
Demographics + + + | Address | [address] | | | [place] [address] | + + + | Home Phone [...] Team Providers + +------+ + | Care Staff Development Manager Name | Role | Phone [...] | +--------+ + + + + | 01/31/ | Telephone | [place] [facility] | Emily Mittal, KATARINA | Other | | 2019 | | HOSPITAL PODIATRY | [address] [place] | | | | | [address] | [place], [place] | | | | | [place], [place] | [address] | | | | | [address] | | | | | | [phone] | | | +--------+ + + + [...] | | | | | [place] [address] | | | | | | [phone] | | | | | | | | +--------+ + + + + | 10/30/ | Office | Primary Care | Erika Ernst, | | | 2019 | Visit | | DO [address] | | | | | | [place] [address] | | | | | | [phone] | | | | | | | [...] [place] | | | | | | [address] | | | | | | [phone] | | | | | | | | +--------+ + + + + | 02/09/ | Office | Neurology | Dhara, | | | 2019 | Visit | | [address] | | | | | [address] [place], | | | | | | [place] [address] | | | | | | [phone] | | | | | | | | +--------+ + + + + documented as of this encounter Visit Diagnoses Not on filedocumented in this encounter"
--- OUTSIDE RECORDS SUMMARY | ~2019-09-30 | XMS | Encounter Summary ---
Demographics + + + | Address | [address] | | | [place] [address] | + + + | Home Phone [...] Providers + +------+ + | Care Social Work Job Titles Name | Role | Phone | + [...] | | | | subsequent | [place] [address] | [place], [place] | | | | | encounter | Phone: | [address] | | | | | Finger pain, | [phone] | Phone: | | | | | right | Fax: | [phone] | | | | | Procedures | [phone] | Fax: | | | | | [place] | | [phone] | + + + + + + [...] | [facility] [address] | [place] [address] | (Primary Dx); | | | | [address] [place], | [phone] | Finger pain, right | | | | [place] [address] | | | | | | [phone] | | | +--------+---------+ + + + [...] attention to this issue. 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 No numbness or the [...] injury, right, subsequent encounter [facility]B [facility] 2. Finger pain, right AMB [facility] Plan: Referral to Ortho for [...] | | | | | [place] [address] | | | | | | [phone] | | | | | | | | +--------+ + + + + | 10/30/ | Office | Primary Care | Erika Ernst, | | | 2019 | Visit | | DO [address] | | | | | | [place] [address] | | | | | | [phone] | | | | | | | [...] [place] | | | | | | [address] | | | | | | [phone] | | | | | | | | +--------+ + + + + | 02/09/ | Office | Neurology | Dhara, | | | 2019 | Visit | | [address] | | | | | | [address] [place], | | | | | | [place] [address] | | | | | | [phone] | | | | | | | [...]
--- OUTSIDE RECORDS SUMMARY | ~2019-09-30 | XMS | Encounter Summary ---
Demographics + + + | Address | [address] | | | [place] [address] | + + + | Home Phone [...] Team Providers + +------+ + | Care Snack Bar Cashier Name | Role | Phone | + [...] Medication Question | | 2018 | | [facility] | [facility] [address] | (medication is | | | | [facility] [address] | [facility] [place] [address] | making her nauseous. | | | | [address] [place], | [phone] | ) | | | | [place] [address] | | | | | | [phone] | | | +--------+ + + + [...] | | | | | [place] [address] | | | | | | [phone] | | | | | | | | +--------+ + + + + | 10/30/ | Office | Primary Care | Erika Ernst, | | | 2019 | Visit | | DO [address] | | | | | | [place] [address] | | | | | | [phone] | | | | | | | [...] [place] | | | | | | [address] | | | | | | [phone] | | | | | | | | +--------+ + + + + | 02/09/ | Office | Neurology | Dhara, | | | 2020 | Visit | | [address] | | | | | | [address] [place], | | | | | | [place] [address] | | | | | | [phone] | | | | | | | | +--------+ + + + + documented as of this encounter Visit Diagnoses Not on filedocumented in this encounter"
--- OUTSIDE RECORDS SUMMARY | ~2019-09-30 | XMS | Encounter Summary ---
Demographics + + + | Address | [address] | | | [place] [address] | + + + | Home Phone [...] Team Providers + +------+ + | Care Flying Squad Worker Name | Role | Phone | [...] | MONITOR - [address] | [place] | [address] | | | | | HOUR | [address] | Phone: | | | | | | Phone: | [phone] | | | | | | [phone] | Fax: | | | | | | Fax: | [phone] | | | | | | [phone] | | +--------+--------+ + + + + [...] | THERAPY [address] | [place] [address] | | | | | [place] | [phone] | | | | | [address] | | | | | | [phone] | | | +--------+ + + + [...] | 11/26/19 | | | (VITAMIN D3) 47440 | mouth Once a week | tablet [...] of this encounter Progress Notes Mauro Rae, ROAD ENGINEER - 12/21/2018 10:23 AM PDTZio Patch placed on Andrea Suh for 2 days. Zio Patch Serial #: [id number]. Tegoderm applied over Zio Patch (Upper and Lower Wings) to help with placement and adhesion . Andrea King Noblit asked to call the [facility] department if any allergic reaction occurs. Patient given verbal and written instructions. Patient to call the [facility] Department with any concerns or issues. [...] 2018 | Visit | | DO [address] [place] [address] | | | | | | [place] [address] | | | | | | [phone] | | | | | | | | +--------+ + + + + | 10/30/ | Office | Primary Care | Erika Ernst, | | | 2019 | Visit | | DO [address] [place] [address] | | | | | | [place] [address] | | | | | | [phone] | | | | | | | [...] [place] | | | | | | [address] | | | | | | [phone] | | | | | | | | +--------+ + + + + | 02/09/ | Office | Neurology | Dhara, | | | 2019 | Visit | | [address] | | | | | | [address] [place], | | | | | | [place] [address] | | | | | | [phone] | | | | | | | [...]
--- OUTSIDE RECORDS SUMMARY | ~2019-09-30 | XMS | Encounter Summary ---
Demographics + + + | Address | [address] | | | [place] [address] | + + + | Home Phone [...] Team Providers + +------+ + | Care Rim Fire Charger Operator Name | Role | Phone | [...] | MONITOR - [address] | [place] | [address] | | | | | WEEK | [address] | Phone: | | | | | | Phone: | [phone] | | | | | | [phone] | Fax: | | | | | | Fax: | [phone] | | | | | | [phone] | | +--------+--------+ + + + + [...] | MEDICINE [address] | [place] [address] | | | | | [place], [place] | [phone] | | | | | [address] | | | | | | [phone] | | | +--------+ + + + [...] | 11/26/19 | | | (VITAMIN D3) 48717 | mouth Once a week | tablet [...] days. Neyda rich will mail recorder to [employer] when done to be scanned.Electronically susana d [...] | | | | | [place] [address] | | | | | | [phone] | | | | | | | | +--------+ + + + + | 10/30/ | Office | Primary Care | Erika Ernst, | | | 2019 | Visit | | DO [address] | | | | | | [place] [address] | | | | | | [phone] | | | | | | | [...] [place] | | | | | | [address] | | | | | | [phone] | | | | | | | | +--------+ + + + + | 02/09/ | Office | Neurology | Dhara, | | | 2019 | Visit | | [address] | | | | | [address] [place], | | | | | | [place] [address] | | | | | | [phone] | | | | | | | [...]
--- OUTSIDE RECORDS SUMMARY | ~2019-09-30 | XMS | Encounter Summary ---
Demographics + + + | Address | [address] | | | [place] [address] | + + + | Home Phone [...] Providers + +------+ + | Care Clinical Documentation Spec Name | Role | Phone | + +------+ + PCP | Unavailable | + +------+ + Encounter Details +--------+ + + + + | Date | Type | Department | Care Team | Description | +--------+ + + + + | [facility]17/ | [facility] Jesus Cornejo | | | 2017 | Encounter | [facility] | MCKENZIE Keenan [address] | | | | | [facility] [address] | [address] | | | | | [facility] [place], | [place], [place] | | | | | [place] [address] | [address] | | | | | [phone] | [phone] | | | | | | | [...] | | | | | [place] [address] | | | | | | [phone] | | | | | | | | +--------+ + + + + | 10/30/ | Office | Primary Care | Erika Ernst, | | | 2019 | Visit | | DO [address] | | | | | | [place] [address] | | | | | | [phone] | | | | | | | | +--------+ + + + + | 11/07/ | Appointment | Nutrition | Janel Webster | | | 2019 | | | [place] | | +--------+ + + + + | 11/28/ | Office | Otolaryngology | Anthony Alvarado MD | | | 2019 | Visit | | [address] | | | | | | [place], [place] | | | | | | [address] | | | | | | [phone] | | | | | | | | +--------+ + + + + | 02/09/ | Office | Neurology | Dhara, | | | 2019 | Visit | | [address] | | | | | [address] [place], | | | | | | [place] [address] | | | | | | [phone] | | | | | | | | +--------+ + + + + documented as of this encounter Visit Diagnoses Not on filedocumented in this encounter"
--- OUTSIDE RECORDS SUMMARY | ~2019-09-30 | XMS | Encounter Summary ---
Demographics + + + | Address | [address] | | | [place] [address] | + + + | Home Phone [...] Providers + +------+ + | Care Web Coordinator Name | Role | Phone | [...] [address] | | | | | [place] [address] | | | | | | [phone] | | | +--------+ + + + [...] | | | | | [place] [address] | | | | | | [phone] | | | | | | | | +--------+ + + + + | 10/30/ | Office | Primary Care | Erika Ernst, | | | 2019 | Visit | | DO [address] | | | | | | [place] [address] | | | | | | [phone] | | | | | | | [...] [place] | | | | | | [address] | | | | | | [phone] | | | | | | | | +--------+ + + + + | 02/09/ | Office | Neurology | Dhara, | | | 2020 | Visit | | [address] | | | | | [address] [place], | | | | | | [place] [address] | | | | | | [phone] | | | | | | | | +--------+ + + + + documented as of this encounter Visit Diagnoses Not on filedocumented in this encounter"
--- OUTSIDE RECORDS SUMMARY | ~2019-09-30 | XMS | Encounter Summary ---
Demographics + + + | Address | [address] | | | [place] [address] | + + + | Home Phone [...] Providers + +------+ + | Care Supervisor Microbiology Technologists Name | Role | Phone | + [...] | [facility] [address] | [place] [address] | | | | | [address] [place], | [phone] | | | | | [place] [address] | | | | | | [phone] | | | +--------+ + + + [...] | | | | | [place] [address] | | | | | | [phone] | | | | | | | | +--------+ + + + + | 10/30/ | Office | Primary Care | Erika Ernst, | | | 2019 | Visit | | DO [address] | | | | | | [place] [address] | | | | | | [phone] | | | | | | | [...] [place] | | | | | | [address] | | | | | | [phone] | | | | | | | | +--------+ + + + + | 02/09/ | Office | Neurology | Dhara, | | | 2020 | Visit | | [address] | | | | | | [address] [place], | | | | | | [place] [address] | | | | | | [phone] | | | | | | | | +--------+ + + + + documented as of this encounter Visit Diagnoses Not on filedocumented in this encounter"
--- OUTSIDE RECORDS SUMMARY | ~2019-09-30 | XMS | Encounter Summary ---
Demographics + + + | Address | [address] | | | [place] [address] | + + + | Home Phone [...] Team Providers + +------+ + | Care Asset Manager Name | Role | Phone | [...] + + | Authorized | Specialty | Hematology / | Diagnoses | Klever | [facility] | | | Services | Hematology | Iron | Erika Salter DO | Hematology | | | Required | and Oncology | deficiency | [address] | Oncology [address] | | | | | | [place], | [address] | | | | | | [place] [address] | [place], [place] | | | | | | Phone: | [address] | | | | | | [phone] | Phone: | | | | | | Fax: | [phone] | | | | | | [phone] | Fax: | | | | | | | [phone] | + + + + + + [...] | MEDICAL CL[facility] [address] | [place] [address] | | | | | [address] [place], | [phone] | | | | | [place] [address] | | | | | | [phone] | | | +--------+ + + + [...] | | 2018 | Visit | | [address] | | | | | | [place], [place] [address] | | | | | | [phone] | | | | | | | | +--------+ + + + + | 10/30/ | Office | Primary Care | Erika Ernst, | | | 2019 | Visit | | DO [address] | | | | | | [place] [address] | | | | | | [phone] | | | | | | | [...] [place] | | | | | | [address] | | | | | | [phone] | | | | | | | | +--------+ + + + + | 02/09/ | Office | Neurology | Dhara, | | | 2019 | Visit | | [address] | | | | | | [address] [place], | | | | | | [place] [address] | | | | | | [phone] | | | | | | | [...]
--- OUTSIDE RECORDS SUMMARY | ~2019-09-30 | XMS | Encounter Summary ---
Demographics + + + | Address | [address] | | | [place] [address] | + + + | Home Phone [...] Providers + +------+ + | Care Director Summer Sessions Name | Role | Phone | + +------+ + PCP | Unavailable | + +------+ + Encounter Details +--------+ + + + + | Date | Type | Department | Care Team | Description | +--------+ + + + + | [facility] Denise Mcgregor | | | 2017 | Encounter | [facility] | G, ORE DRYER [address] | | | | | MEDICAL CL[facility] [address] | [place] | | | | | [address] [facility], | [address] | | | | | [place] [address] | [phone] | | | | | [phone] | | | +--------+ + + + [...] | | | | | [place] [address] | | | | | | [phone] | | | | | | | | +--------+ + + + + | 10/30/ | Office | Primary Care | Erika Ernst, | | | 2019 | Visit | | DO [address] | | | | | | [place] [address] | | | | | | [phone] | | | | | | | [...] [place] | | | | | | [address] | | | | | | [phone] | | | | | | | | +--------+ + + + + | 02/09/ | Office | Neurology | Dhara, | | | 2020 | Visit | | [address] | | | | | | [address] [place], | | | | | | [place] [address] | | | | | | [phone] | | | | | | | | +--------+ + + + + documented as of this encounter Visit Diagnoses Not on filedocumented in this encounter"
--- OUTSIDE RECORDS SUMMARY | ~2019-09-30 | XMS | Encounter Summary ---
Demographics + + + | Address | [address] | | | [place] [address] | + + + | Home Phone [...] | [facility] | | | and [place] | + [...] Team Providers + +------+ + | Care Nematologist Name | Role | Phone | + +------+ + PCP | Unavailable | + +------+ + Encounter Details +--------+ + + + + | Date | Type | Department | Care Team | Description | +--------+ + + + + | 11/02/ | [facility] | Erika Ernst, | | | 2016 | Encounter | HOSPITAL LABORATORY | DO [address] | | | | | [address] [place] | [place] [address] | | | | | [place], [place] | [phone] | | | | | [address] | | | | | | [phone] | | | +--------+ + + + [...] | | | | | [place] [address] | | | | | | [phone] | | | | | | | | +--------+ + + + + | 10/30/ | Office | Primary Care | Erika Ernst, | | | 2019 | Visit | | DO [address] [place] | | | | | | [place] [address] | | | | | | [phone] | | | | | | | [...] [place] | | | | | | [address] | | | | | | [phone] | | | | | | | | +--------+ + + + + | 02/09/ | Office | Neurology | Dhara, | | | 2019 | Visit | | [address] | | | | | | [address] [place], | | | | | | [place] [address] | | | | | | [phone] | | | | | | | | +--------+ + + + + documented as of this encounter Procedures + +--------+ + + + | Procedure Name | Priori | Date/Time | Associated Diagnosis | Comments | | | ty | | | | + +--------+ + + + | C. DIFFICILE DNA | Routin | 11/02/2016 | | Results for this | | AMPLIFIED | e | 9:59 AM | | procedure are in the | | | | PST | | results section. | + +--------+ + + + documented in this encounter Results Clostridium difficile DNA amplified (11/02/2016 9:59 AM PST) + + + + + + | Component | Value | Ref Range | Performed | Pathologist | | | | | At | Signature | + + + + + + | Clostridium | NEGATIVE | NEGATIVE | EXTERNAL | | | Diff | | | LAB | | + [...]
--- OUTSIDE RECORDS SUMMARY | ~2019-09-30 | XMS | Encounter Summary ---
Demographics + + + | Address | [address] | | | [place] [address] | + + + | Home Phone [...] Team Providers + +------+ + | Care Icu Rn Name | Role | Phone | [...] | | | of left | [place] [address] | [place], [place] | | | | | ankle, | Phone: | [address] | | | | | subsequent | [phone] | Phone: | | | | | encounter | Fax: | [phone] | | | | | Procedures | [phone] | Fax: | | | | | [place] | | [phone] | +--------+ + + + + + [...] | | | of left | [place] [address] | [address] | | | | | ankle, | Phone: | Phone: | | | | | subsequent | [phone] | [phone] | | | | | encounter | Fax: | Fax: | | | | | Procedures | [phone] | [phone] | | | | | MRI Ankle [...] | MEDICAL [facility] [address] | [place] [address] | ligament of left | | | | [address] [place], | [phone] | ankle, subsequent | | | | [place] [address] | | encounter (Primary | | | | [phone] | | Dx) | +--------+---------+ + + [...] slipped on twigs in the parking lo [employer] at work on May 31, 2018 and [...] [place] | | | | | | [place] [address] | | | | | | [phone] | | | | | | | | +--------+ + + + + | 10/30/ | Office | Primary Care | Erika Ernst, | | | 2019 | Visit | | DO [address] [place] | | | | | | [place] [address] | | | | | | [phone] | | | | | | | [...] [place] | | | | | | [address] | | | | | | [phone] | | | | | | | | +--------+ + + + + | 02/09/ | Office | Neurology | Dhara, | | | 2019 | Visit | | [address] | | | | | | [address] [place], | | | | | | [place] [address] | | | | | | [phone] | | | | | | | [...]
--- OUTSIDE RECORDS SUMMARY | ~2019-09-30 | XMS | Encounter Summary ---
Demographics + + + | Address | [address] | | | [place] [address] | + + + | Home Phone [...] Team Providers + +------+ + | Care Chairman & Co Founder Name | Role | Phone | + +------+ + | Eirka Ernst DO | PCP | | + [...] | | | of left | [place] [address] | [place] [address] | | | | | ankle, | Phone: | Phone: | | | | | initial | [phone] | [phone] | | | | | encounter | Fax: | Fax: | | | | | Procedures | [phone] | [phone] | | | | | PT EVAL AND | | | | | | | TREAT | | | +--------+ + + + + + Encounter Details +--------+ + + + + | Date | Type | Department | Care Team | Description | +--------+ + + + + | 07/17/ | Hospital | [facility] [facility] | Erika Ernst, | Sprain of | | 2018 | Encounter | HOSPITAL THERAPY PT | DO [address] [place] | calcaneofibular | | | | [address] [place] | [place] [address] | ligament of left | | | | [place], [place] | [phone] | ankle, initial | | | | [address] | | encounter | | | | [phone] | Nick Barrios I, PT | | [...] Progress Notes Nick Barrios I, PT - 07/17/2018 6:18 PM PDTFormatting of this note might be different hannah tan the original. [facility] THERAPY PT [address] [place] [address] Physical Therapy Daily Treatment Note Date: 07/17/2018 Patient Information Patient Name: Andrea Suh Date of : 1990 Age: 28 y.o. Encounter Diagnoses Code Name Primary? S93.412A Sprain of calcaneofibular ligament of left ankle, initial encounter Date of Onset: 06/11/2018 Referring Provider: Erika Ernst DO Objective Pain Assessment: Pain Rating Pre Assessment: 5 Pain Rating Post Assessment: 4 Location: L medial ankle Today's Treatment Patient Name: Andrea Suh/: 1990/ Start Time: 1602 Stop time: 1702 Duration: 60 minutes Timed Treatment Codes: 59 minutes # of PT Visits to Date: 4 Visit Summary: S: Patient states that she experienced a pop on the medial aspect of her L a nkle on Monday during CCW ankle exercises. Afterwards she began feeling symptoms of numbne ss/fuzziness on her L heel. She says symptoms have gotten a little bit better, but she still has some numbness. A: Patient responded well to increased difficulty of LE strengthening ex ercises without increased pain symptoms. Tolerated STM applied to L medial ankle without sym ptoms. Next Visit Information: progress step up exercises, stance on foam pad, begin leg press exe rcises Therapy Interventions HEP: NEW: Double leg heel raise 3x10 3x/wk // forward/lateral step ups on 8" step 3x10 3x/w k each // standing achilles stretch 3x30 seconds 1x/day. ONGOIN way ankle PRE yellow the raband 3x10 each direction 3x/wk. // Ankle inversion/eversion 3x10 progressing to 20 1x/day // ankle ABC's 3x/day. // Ankle pumps 3x10 progressing to 20 repetitions 1x/day // ankle cir cles 3x10 progressing to 20 repetitions each direction 1x/day PT INTERVENTION 1: TE - (38 minutes) PRE yellow theraband L ankle dorsiflexion/plantarflexi on/eversion/inversion 3x10 each direction // Ankle pumps 2x20 // ankle circles 2x20 CW // Do uble leg heel raise 3x10 // forward/lateral step ups on 8" step 2x10 each with use of grab b ar for stability during exercise // standing achilles stretch 3x30 seconds // additional primo e required for patient education regarding purpose of exercises and correct exercise form. PT MANUAL THERAPY 1: STM - (21 minutes) Applied to medial L ankle and heel of L foot Assessment Rehabilitation potential: Patient demonstrates good [...] today Electronically signed by: Nick Barrios PT, 07/17/2018 18:18 Patient Name: Andrea Henaoemiliasuresh/: 1990/ documented in this en counter Plan of Treatment +--------+ + + + + | Date | Type | Specialty | Care Team | Description | +--------+ + + + + | 10/01/ | Office | Primary Care | Erika Ernst, | | | 2018 | Visit | | DO [address] | | | | | | [place] [address] | | | | | | [phone] | | | | | | | | +--------+ + + + + | 10/30/ | Office | Primary Care | Erika Ernst, | | | 2019 | Visit | | DO [address] [place] | | | | | | [place] [address] | | | | | | [phone] | | | | | | | [...] | | | | | | [place] | | | | | | [address] | | | | | | [phone] | | | | | | | | +--------+ + + + + | 02/09/ | Office | Neurology | Dhara, | | | 2019 | Visit | | DWAINE Ross [address] | | | | | | [address] [facility] [place], | | | | | | [place] [address] | | | | | | [phone] | | | | | | | | +--------+ + + + + documented as of this encounter Visit Diagnoses + + | Diagnosis | + + | Sprain of calcaneofibular ligament of left ankle, initial encounter | + + documented in this encounter
--- OUTSIDE RECORDS SUMMARY | ~2019-09-30 | XMS | Encounter Summary ---
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 [...] PROCEDURE 01/20/2016 Surgeon: Fani Mahajan MD; Location: [facility] TENDON RELEASE TONSILLECTOMY WISDOM TOOTH [...] and their vital signs recorded by my urology physician assistant today, a s found in this chart note. Electronically signed by: Emily Mittal DPM 12/06/2018 at 9:59 Note: Part of this report was transcribed using voice recognition software. Every effort wa s made to ensure accuracy. However, inadvertent computerized lens grinder and polisher errors may be pre sent. CC: Erika [...] | | | | | [place] [address] | | | | | | [phone] | | | | | | | | +--------+ + + + + | 10/30/ | Office | Primary Care | Erika Ernst, | | | 2019 | Visit | | DO [address] [place] | | | | | | [place] [address] | | | | | | [phone] | | | | | | | [...] [place] | | | | | | [address] | | | | | | [phone] | | | | | | | | +--------+ + + + + | 02/09/ | Office | Neurology | Dhara, | | | 2020 | Visit | | DWAINE Ross [address] | | | | | | [address] [facility] [place], | | | | | | [place] [address] | | | | | | [phone] | | | | | | | [...]
--- OUTSIDE RECORDS SUMMARY | ~2019-09-30 | XMS | Encounter Summary ---
Demographics + + + | Address | [address] | | | [place] [address] | + + + | Home Phone [...] Team Providers + +------+ + | Care Soil Specialist Name | Role | Phone | + +------+ + PCP | Unavailable | + +------+ + Encounter Details +--------+ + + + + | Date | Type | Department | Care Team | Description | +--------+ + + + + | 09/10/ | [facility] | [facility] | Erika Ernst, | | | 2014 | Encounter | [facility] | DO [address] | | | | | MEDICAL CLINIC [address] | [facility] [place] [address] | | | | | [address] [facility] | [phone] | | | | | [place] [address] | | | | | | [phone] | | | +--------+ + + + [...] | | | | | [place] [address] | | | | | | [phone] | | | | | | | | +--------+ + + + + | 10/30/ | Office | Primary Care | Erika Ernst, | | | 2019 | Visit | | DO [address] [place] | | | | | | [place] [address] | | | | | | [phone] | | | | | | | [...] [place] | | | | | | [address] | | | | | | [phone] | | | | | | | | +--------+ + + + + | 02/09/ | Office | Neurology | Dhara, | | | 2020 | Visit | | DWAINE Ross [address] | | [address] [place], | | | | | | [place] [address] | | | | | | [phone] | | | | | | | | +--------+ + + + + documented as of this encounter Visit Diagnoses Not on filedocumented in this encounter"
--- OUTSIDE RECORDS SUMMARY | ~2019-09-30 | XMS | Encounter Summary ---
Demographics + + + | Address | [address] | | | [place] [address] | + + + | Home Phone [...] Team Providers + +------+ + | Care Awning Erector Name | Role | Phone | + +------+ + PCP | Unavailable | + +------+ + Encounter Details +--------+ + + + + | Date | Type | Department | Care Team | Description | +--------+ + + + + | 10/27/ | [facility] | [facility] | Erika Ernst, | | | 2015 | Encounter | [facility] | DO [address] | | | | | MEDICAL CLINIC [address] | [place] [place] [address] | | | | | [address] [place], | [phone] | | | | | [place] [address] | | | | | | [phone] | | | +--------+ + + + [...] [address] | | | | | | [phone] | | | | | | | | +--------+ + + + + | 10/30/ | Office | Primary Care | Erika Ernst, | | | 2019 | Visit | | DO [address] [place] | | | | | | [place] [address] | | | | | | [phone] | | | | | | | [...] [place] | | | | | | [address] | | | | | | [phone] | | | | | | | | +--------+ + + + + | 02/09/ | Office | Neurology | Dhara, | | | 2020 | Visit | | DWAINE Ross [address] | | | [address] [place], | | | | | | [place] [address] | | | | | | [phone] | | | | | | | | +--------+ + + + + documented as of this encounter Visit Diagnoses Not on filedocumented in this encounter"
--- OUTSIDE RECORDS SUMMARY | ~2019-09-30 | XMS | Encounter Summary ---
Demographics + + + | Address | [address] | | | [place] [address] | + + + | Home Phone [...] Team Providers + +------+ + | Care Poker In Name | Role | Phone | + [...] | [address] | | | | | [address] | | | | | | [phone] | | | +--------+ + + + [...] | Visit | | DO [address] | | | | | | [place] [address] | | | | | | [phone] | | | | | | | | +--------+ + + + + | 10/30/ | Office | Primary Care | Erika Ernst, | | | 2019 | Visit | | DO [address] [facility] [address] | | | | | | [place] [address] | | | | | | [phone] | | | | | | | [...] [place] | | | | | | [address] | | | | | | [phone] | | | | | | | | +--------+ + + + + | 02/09/ | Office | Neurology | Dhara, | | | 2019 | Visit | | DWAINE Ross [address] | | | | | | [address] [place], | | | | | | [place] [address] | | | | | | [phone] | | | | | | | | +--------+ + + + + documented as of this encounter Visit Diagnoses Not on filedocumented in this encounter"
--- OUTSIDE RECORDS SUMMARY | ~2019-09-30 | XMS | Encounter Summary ---
Demographics + + + | Address | [address] | | | [place] [address] | + + + | Home Phone [...] + | 09/04/ | Telephone | [facility] [facility] | Herbert Herron | Other | | 2019 | | [facility] | LISA Abad [address] | | | | | [address] | [place], | | | | | [place], [place] | [place] [address] | | | | | [address] | [phone] | | | | | [phone] | | | +--------+ + + + [...] | | | | | [place] [address] | | | | | | [phone] | | | | | | | | +--------+ + + + + | 10/30/ | Office | Primary Care | Erika Ernst, | | | 2019 | Visit | | DO [address] | | | | | | [place] [address] | | | | | | [phone] | | | | | | | [...] [place] | | | | | | [address] | | | | | | [phone] | | | | | | | | +--------+ + + + + | 02/09/ | Office | Neurology | Dhara, | | | 2019 | Visit | | [address]WA[address] Ross [address] | | | [address] [place], | | | | | | [place] [address] | | | | | | [phone] | | | | | | | | +--------+ + + + + documented as of this encounter Visit Diagnoses Not on filedocumented in this encounter"
--- OUTSIDE RECORDS SUMMARY | ~2019-09-30 | XMS | Encounter Summary ---
Demographics + + + | Address | [address] | | | [place] [address] | + + + | Home Phone [...] Team Providers + +------+ + | Care Hospice Music Therapist Name | Role | Phone | + +------+ + | Erika Ernst DO | PCP | | + +------+ + Reason for Visit +--------+ + | Reason | Comments | +--------+ + | Other | PAIN ASSOCIATED WITH THYROID | +--------+ + Encounter Details +--------+---------+ + + + | Date | Type | Department | Care Team | Description | +--------+---------+ + + + | 09/04/ | Office | [facility] [facility] | Carlos Roberts, | Pain aggravated by | | 2019 | Visit | [facility] | LICENSED SOCIAL WORKER [address] | swallowing (Primary | | | | MEDICAL CLINIC [address] | [place] [address] | Dx) | | | | [address] [place], | [phone] | | | | | [place] [address] | | | | | | [phone] | | | +--------+---------+ + + + [...] + + + | Blood Pressure | 120/80 | 09/04/2019 1:14 PM | | | | | PST | | + + + + + | Pulse | 95 | 09/04/2019 1:14 PM | | | | | PST | | + + + + + | Temperature | - | - | | + + + + + | Respiratory Rate | 18 | 09/04/2019 1:14 PM | | | | | PST | | + + + + + | Oxygen Saturation | 96% | 09/04/2019 1:14 PM | | | | | PST | | + + + + + | Inhaled Oxygen | - | - | | | Concentration | | | | + + + + + | Weight | 175.1 kg (386 lb) | 09/04/2019 1:14 PM | | | | | PST | | + + + + + | Height | 177.8 cm (5' 10") | 09/04/2019 1:14 PM | | | | | PST | | + + + + + | Body Mass Index | 55.39 | 09/04/2019 1:14 PM | | | | | PST | | + + + + + documented in this encounter Patient Instructions Patient Instructions Carlos Roberts NP - 09/04/2019 1:00 PM PSTDrink plenty of liquids. Continue Ibuprofen as discussed; take ibuprofen 200 mg. Tablet, take 3 tablets every 6 hour s as needed for discomfort. May alternate with over the counter acetaminophen per package i nstructions for discomfort. Gargle with warm salt water, 1/2 teaspoon of table salt in 8 ou nces of warm water after meals and at bedtime. May apply ice or heat to the affected area f or 20-30 minutes 4 times a day and as needed. Follow up with your primary care provider or return to the clinic if your symptoms do not resolve or worsen. documented in this encounter Progress Notes Carlos Roberts NP - 09/04/2019 1:00 PM PSTFormatting of this note might be different fro m the original. Subjective: Patient ID: Andrea Suh is a 29 y.o. female. HPI 29 y.o. female presents with c/o an ache in her throat and discomfort when swallowing since she had a needle biopsy of her thyroid on 09-02-19. Discomfort is on the left where he r biopsy was obtained from. Otherwise, calm demeanor with no overt s and s of acute distres s. Patient's medications, allergies, past medical, surgical, social and family histories were obtained and reviewed as appropriate. Review of Systems HENT: Positive for sore throat. All other systems reviewed and are negative. Objective: BP 120/80 | Pulse 95 | Resp 18 | Ht 1.778 m (5' 10") | Wt (!) 175.1 kg (386 lb) | SpO2 96% | BMI 55.39 kg/m Physical Exam Vitals signs reviewed. Constitutional: Appearance: Normal appearance. HENT: Head: Normocephalic and atraumatic. Right Ear: External ear normal. Left Ear: External ear normal. Mouth/Throat: Mouth: Mucous membranes are moist. Pharynx: Oropharynx is clear. Eyes: Conjunctiva/sclera: Conjunctivae normal. Pupils: Pupils are equal, round, and reactive to light. Neck: Musculoskeletal: Normal range of motion and neck supple. Cardiovascular: Rate and Rhythm: Normal rate and regular rhythm. Pulses: Normal pulses. Heart sounds: Normal heart sounds. Pulmonary: Effort: Pulmonary effort is normal. Breath sounds: Normal breath sounds. Abdominal: General: Bowel sounds are normal. Palpations: Abdomen is soft. Musculoskeletal: Normal range of motion. Skin: General: Skin is warm and dry. Neurological: General: No focal deficit present. Mental Status: She is alert and oriented to person, place, and time. Psychiatric: Mood and Affect: Mood normal. Behavior: Behavior normal. Thought Content: Thought content normal. Judgment: Judgment normal. No nodularity noted over thyroid with palpation. Mild tenderness over the biopsy site note d. No anomaly noted in oropharynx; no erythema, no exudates and no edema noted. Temp was t aken and it was 98.1 F. Assessment: Post procedure pain, acute onset. Plan: Drink plenty of liquids. Ibuprofen 600 mg. Po q 6 hours prn and may alternate with OTC nasima taminophen per package instructions. Gargle with warm salt water after meals and at bedtime . Ice or heat to biopsy area qid and prn. RTC or f/u pcp if symptoms do not resolve or wor sen. documented in this en counter Plan of Treatment +--------+ + + + + | Date | Type | Specialty | Care Team | Description | +--------+ + + + + | 10/01/ | Office | Primary Care | Erika Ernst, | | | 2018 | Visit | | DO [address] [place] | | | | | | [place] [address] | | | | | | [phone] | | | | | | | | +--------+ + + + + | 10/30/ | Office | Primary Care | Erika Ernst, | | | 2019 | Visit | | DO [address] [place] | | | | | | [place] [address] | | | | | | [phone] | | | | | | | [...] [place] | | | | | | [address] | | | | | | [phone] | | | | | | | | +--------+ + + + + | 02/09/ | Office | Neurology | Dhara, | | | 2019 | Visit | | Cody, REFRIGERATOR ASSEMBLER [address] | | | | | [address] [place], | | | | | | [place] [address] | | | | | | [phone] | | | | | | | | +--------+ + + + + documented as of this encounter Visit Diagnoses + + | Diagnosis | + + | Pain aggravated by swallowing - Primary | + + documented in this encounter
--- OUTSIDE RECORDS SUMMARY | ~2019-09-30 | XMS | Encounter Summary ---
Demographics + + + | Address | [address] | | | [place] [address] | + + + | Home Phone [...] Team Providers + +------+ + | Care Wireless Sales Expert Name | Role | Phone | [...] | | MEDICAL CLIN[facility] [address] | [facility] [address] | | | | | [address] [place], | [phone] | | | | | [place] [address] | | | | | | [phone] | | | +--------+ + + + [...] 2019 | Visit | | DO [address] | | | | | | [place] [address] | | | | | | [phone] | | | | | | | | +--------+ + + + + | 10/30/ | Office | Primary Care | Erika Ernst, | | | 2019 | Visit | | DO [address] [place] | | | | | | [place] [address] | | | | | | [phone] | | | | | | | [...] [place] | | | | | | [address] | | | | | | [phone] | | | | | | | | +--------+ + + + + | 02/09/ | Office | Neurology | Dhara, | | | 2019 | Visit | | DWAINE Ross [address] | | | | | [address] [place], | | | | | | [place] [address] | | | | | | [phone] | | | | | | | [...] 0.1 | 0.0 - 2.0 % | [place] | | | | | | RONDE [...] + + | [place] [facility] | [address] | [place] [address] | [phone] | | [facility] | | | | | [facility] | | | | + + + + + documented in this encounter Visit Diagnoses + + | Diagnosis | + + | Lymphocytosis - Primary Lymphocytosis (symptomatic) | + + documented in this encounter"
--- OUTSIDE RECORDS SUMMARY | ~2019-09-30 | XMS | Encounter Summary ---
Demographics + + + | Address | [address] | | | [place] [address] | + + + | Home Phone [...] Team Providers + +------+ + | Care Hole Digger Operator Name | Role | Phone [...] + + + + | 08/20/ | Telephone | [facility] [facility] | Luis Nichole MD | Pain | | 2019 | | HOSPITAL [facility]UR[facility] | [address] | | | | | CLIN[address] | [place], [place] | | | | | [address] [place], | [address] | | | | | [place] [address] | | | | | | [phone] | | | +--------+ + + + [...] | | | | | [place] [address] | | | | | | [phone] | | | | | | | | +--------+ + + + + | 10/30/ | Office | Primary Care | Erika Ernst, | | | 2019 | Visit | | DO [address] [place] | | | | | | [place] [address] | | | | | | [phone] | | | | | | | [...] [place] | | | | | | [address] | | | | | | [phone] | | | | | | | | +--------+ + + + + | 02/09/ | Office | Neurology | Dhara, | | | 2020 | Visit | | [address]WAINE Ross [address] | | | | | | [address] [place], | | | | | | [place] [address] | | | | | | [phone] | | | | | | | | +--------+ + + + + documented as of this encounter Visit Diagnoses Not on filedocumented in this encounter"
--- OUTSIDE RECORDS SUMMARY | ~2019-09-30 | XMS | Encounter Summary ---
Demographics + + + | Address | [address] | | | [place] [address] | + + + | Home Phone [...] Team Providers + +------+ + | Care Data Integration Analyst Name | Role | Phone | + +------+ + | Erika Ernst DO | PCP | | + +------+ + Reason for Visit +--------+ + | Reason | Comments | +--------+ + | Other | L ankle/heel pain | +--------+ + Encounter Details +--------+ + + + + | Date | Type | Department | Care Team | Description | +--------+ + + + + | 01/21/ | Telephone | [facility] [facility] | Emily Mittal DPM | Other (L ankle/heel | | 2019 | | HOSPITAL [facility] | [address] [place] | pain) | | | | [address] | [place], [place] | | | | | [place], [place] | [address] | | | | | [address] | | | | | | [phone] | | | +--------+ + + + [...] Visit | | DO [address] [place] | | | | | | [place] [address] | | | | | | [phone] | | | | | | | | +--------+ + + + + | 10/30/ | Office | Primary Care | Erika Ernst, | | | 2019 | Visit | | DO [address] [place] | | | | | | [place] [address] | | | | | | [phone] | | | | | | | [...] [place] | | | | | | [address] | | | | | | [phone] | | | | | | | | +--------+ + + + + | 02/09/ | Office | Neurology | Dhara, | | | 2019 | Visit | | DWAINE Ross [address] | | | | | | [address] [place], | | | | | | [place] [address] | | | | | | [phone] | | | | | | | | +--------+ + + + + documented as of this encounter Visit Diagnoses Not on filedocumented in this encounter"
--- OUTSIDE RECORDS SUMMARY | ~2019-09-30 | XMS | Encounter Summary ---
Demographics + + + | Address | [address] | | | [place] [address] | + + + | Home Phone [...] Team Providers + +------+ + | Care Ice Cream Freezer Name | Role | Phone | + [...] | CENTER [address] [place], [place] | | | | | [place], [place] | [address] | | | | | [address] | | | | | | [phone] | | | +--------+ + + + [...] | | | | | [place] [address] | | | | | | [phone] | | | | | | | | +--------+ + + + + | 10/30/ | Office | Primary Care | Erika Enrst, | | | 2019 | Visit | | DO [address] [place] | | | | | | [place] [address] | | | | | | [phone] | | | | | | | [...] [place] | | | | | | [address] | | | | | | [phone] | | | | | | | | +--------+ + + + + | 02/09/ | Office | Neurology | Dhara, | | | 2020 | Visit | | [address]WA[address] | | | | | | [address] [place], | | | | | | [place] [address] | | | | | | [phone] | | | | | | | | +--------+ + + + + documented as of this encounter Visit Diagnoses Not on filedocumented in this encounter"
--- OUTSIDE RECORDS SUMMARY | ~2019-09-30 | XMS | Encounter Summary ---
Demographics + + + | Address | [address] | | | [place] [address] | + + + | Home Phone [...] Providers + +------+ + | Care Research And Evaluation Analyst Name | Role | Phone | + +------+ + | Erika Ernst DO | PCP | | + +------+ + Reason for Visit +--------+ + | Reason | Comments | +--------+ + | Asthma | x2 weeks. wheezing this AM | +--------+ + Encounter Details +--------+---------+ + + + | Date | Type | Department | Care Team | Description | +--------+---------+ + + + | 01/16/ | Office | [place] [facility] | Alem Guerrero, | Moderate persistent | | 2019 | Visit | [facility] | TALENT ACQUISITION SOURCER-MONITORING ANALYST [address] | asthma with (acute) | | | | [facility] [address] | [address] [place] | exacerbation | | | | [address] [facility] | [place] [address] | (Primary Dx) | | | | [place] [address] | [phone] | | | | | [phone] | | | +--------+---------+ + + + [...] + + + | Blood Pressure | 127/85 | 01/16/2019 10:20 AM | | | | | PDT | | + + + + + | Pulse | 67 | 01/16/2019 10:20 AM | | | | | PDT | | + + + + + | Temperature | 36.4 C (97.6 F) | 01/16/2019 10:20 AM | | | | | PDT | | + + + + + | Respiratory Rate | 18 | 01/16/2019 10:20 AM | | | | | PDT | | + + + + + | Oxygen Saturation | 99% | 01/16/2019 10:20 AM | | | | | PDT | | + + + + + | Inhaled Oxygen | - | - | | | Concentration | | | | + + + + + | Weight | 170.6 kg (376 lb) | 01/16/2019 10:20 AM | | | | | PDT | | + + + + + | Height | 177.8 cm (5' 10") | 01/16/2019 10:20 AM | | | | | PDT | | + + + + + | Body Mass Index | 53.95 | 01/16/2019 10:20 AM | | | | | PDT | | + + + + + documented in this encounter Patient Instructions Patient Instructions Alem Guerrero APRN-FNP - 01/16/2019 10:15 AM PDTTake the predniso ne as prescribed Continue your scheduled and as needed inhalers Asthma (Adult) Asthma is a disease where [...] more than every 4 hours, contact your [facility] provider or seek immediate medical attention. [...] don't already have one, talk to your regional medical center are provider about developing your own "Asthma [...] turning echevarria or blue Date Last Reviewed: 01/30/201719993065-4328 [employer]. [address] [place] [address], [place] [address]. All righ ts reserved. This information is not intended as a substitute for professional medical care. Always follow your healthcare professional's instructions. documented in this encounter Progress Notes Alem Guerrero APRN-FNP - 01/16/2019 10:15 AM PDTFormatting of this note might be diffe rent from the original. Subjective: Patient ID: Andrea Suh is a 28 y.o. female. Chief Complaint Patient presents with Asthma x2 weeks. wheezing this AM HPI Here today with complaints of mild intermittent wheezing for the past two weeks. She has a history of asthma complicated by allergies and uses symbicort, and qvar scheduled and the co mbivent as needed. This morning she noticed some increased wheezing, her chest felt tight, a nd she felt a little short of breath. She used her combivent inhaler which helped a little. She called Dr. 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 Once a week Cholecalciferol (VITAMIN D3) 91875 units TABS Take 1 tablet by mouth [...] day for the next 1 0 days. (Patient not taking: Reported on 01/16/2019) 22 g 1 QVAR REDIHALER 80 MCG/ACT inhaler 0 triamterene-hydrochlorothiazide (DYAZIDE) 37.5-25 MG per capsule Take 1 capsule by mout h every morning. No current facility-administered medications on file prior to visit. Objective: BP 127/85 | Pulse 67 | Temp 36.4 C (97.6 F) (Oral) | Resp 18 | Ht 1.778 m (5' 10") | Wt (!) 170.6 kg (376 lb) | LMP 12/20/2018 | SpO2 99% | BMI 53.95 kg/m Physical Exam Constitutional: She is oriented to person, place, and time. She appears well-developed and well-nourished. She is cooperative. Non-toxic appearance. No distress. Morbidly obese HENT: Mouth/Throat: Oropharynx is clear and moist. Neck: Normal range of motion. Neck supple. Cardiovascular: Normal rate, regular rhythm and normal heart sounds. Pulmonary/Chest: Effort normal. No respiratory distress. She has wheezes (scattered). Mildly diminshed Lymphadenopathy: She has no cervical adenopathy. Neurological: She is alert and oriented to person, place, and time. Skin: Skin is warm and dry. No rash noted. No erythema. No pallor. No results found for this or any previous visit (from the past 24 hour(s)). None Assessment: 1. Moderate persistent asthma with (acute) exacerbation - predniSONE (DELTASONE) 20 mg tablet; Take 2 tablets by mouth Daily for 5 days. Dispense: 10 tablet; Refill: 0 Plan: Steroid burst Continue previously ordered scheduled and as needed inhalers Return if symptoms worsen or fail to improve, for with pcp. Electronically signed by: Alem Guerrero APRN-[id number]:41 [facility] Note: Part of this report was transcribed using voice recognition software. Every effort wa s made to ensure accuracy. However, inadvertent computerized paver operator errors may be pre sent. Linh rubin in this encounter Plan of Treatment +--------+ + + + + | Date | Type | Specialty | Care Team | Description | +--------+ + + + + | 10/01/ | Office | Primary Care | Erika Ernst, | | | 2018 | Visit | | DO [address] [place] | | | | | | [place] [address] | | | | | | [phone] | | | | | | | | +--------+ + + + + | 10/30/ | Office | Primary Care | Erika Ernst, | | | 2019 | Visit | | DO [address] [place] | | | | | | [place] [address] | | | | | | [phone] | | | | | | | [...] [place] | | | | | | [address] | | | | | | [phone] | | | | | | | | +--------+ + + + + | 02/09/ | Office | Neurology | Dhara, | | | 2019 | Visit | | DWAINE Ross [address] | | | | | [address] [place], | | | | | | [place] [address] | | | | | | [phone] | | | | | | | | +--------+ + + + + documented as of this encounter Visit Diagnoses + + | Diagnosis | + + | Moderate persistent asthma with (acute) exacerbation - Primary | + + documented in this encounter
--- OUTSIDE RECORDS SUMMARY | ~2019-09-30 | XMS | Encounter Summary ---
Demographics + + + | Address | [address] | | | [place] [address] | + + + | Home Phone [...] Team Providers + +------+ + | Care Energy Conservation Engineer Name | Role | Phone | [...] ears | | 2019 | Visit | [facility] | MATHEMATICAL PHYSICIST-BABY SITTER [address] | (Primary Dx); Acute | | | | [facility] [address] | [address] [place] | recurrent | | | | [address] [place], | [place] [address] | pansinusitis | | | | [place] [address] | [phone] | | | | | [phone] | | | +--------+---------+ + + + [...] encounter Patient Instructions Patient Instructions Alem Guerrero APRN-BABY SITTER - 12/03/2018 12:23 PM PSTPlan: Sinusitis -Take [...] for yourself at home: You may use zzof-hbu-lqmjqwe medicine as directed to control pain, unless [...] severe liver damag e. You may use gkhf-ehr-iueleuh decongestants such as phenylephrine or pseudoephedrine. But [...] Unusual drowsiness or confusion Date Last Reviewed: 07/02/201619990835-7203 [employer]. [address] [place] [address]. All righ ts reserved. This information is [...] sudafed daily prescribed by Dr. Pruett in [place] (vehicle painter/asthma specialist) Chronic ear pain from TMJ; unsure [...] BID 60 tablet 3 Cholecalciferol (VITAMIN D3) 84026 units TABS Take 1 tablet by mouth [...] with pcp as planned. Electronically signed by: ANUP [email or web address]:32 [facility] Note: Part of this report was transcribed using voice recognition software. Every effort wa s made to ensure accuracy. However, inadvertent computerized muleser errors may be pre sent. docuwilliam rubin [...] | | | | | [place] [address] | | | | | | [phone] | | | | | | | | +--------+ + + + + | 10/30/ | Office | Primary Care | Erika rEnst, | | | 2019 | Visit | | DO [address] [place] | | | | | | [place] [address] | | | | | | [phone] | | | | | | | [...] [place] | | | | | | [address] | | | | | | [phone] | | | | | | | | +--------+ + + + + | 02/09/ | Office | Neurology | Dhara, | | | 2019 | Visit | | DWAINE Ross [address] | | | | | [address] [place], | | | | | | [place] [address] | | | | | | [phone] | | | | | | | | +--------+ + + + + documented as of this encounter Visit Diagnoses + + | Diagnosis | + + | Otalgia of both ears - Primary Otalgia, unspecified | + + | Acute recurrent pansinusitis Other acute sinusitis | + + documented in this encounter
--- OUTSIDE RECORDS SUMMARY | ~2019-09-30 | XMS | Encounter Summary ---
Demographics + + + | Address | [address] | | | [place] [address] | + + + | Home Phone [...] Team Providers + +------+ + | Care Couples Therapist Name | Role | Phone | [...] | 2019 | | [facility] | VOCAL MUSIC TEACHER [address] | without hematuria | | | | CENTER [address] | [place] | (Primary Dx); | | | | [place] | [address] | Vomiting, | | | | [address] | | intractability of | | | | [phone] | | vomiting not | | | [...] Care Everywhere.Urinary Tract I nfections (UTIs), Understanding (Lithuanian)documented in this encounter Medications at Time of [...] | | | | | [place] [address] | | | | | | [phone] | | | | | | | | +--------+ + + + + | 10/30/ | Office | Primary Care | Erika Ernst, | | | 2019 | Visit | | DO [address] [place] | | | | | | [place] [address] | | | | | | [phone] | | | | | | | [...] [place] | | | | | | [address] | | | | | | [phone] | | | | | | | | +--------+ + + + + | 02/09/ | Office | Neurology | Dhara, | | | 2019 | Visit | | DAWINE Ross [address] | | | | | | [address] [facility], | | | | | | [place] [address] | | | | | | [phone] | | | | | | | [...] + + | [place] [facility] | [address] | [place] [address] | [phone] | | [facility]PITAL [facility] | | | [...] - 1.030 | [place] | | | [place] | | | [facility] | | | [...] + + | [place] [facility] | [address] | [place] [address] | [phone] | | HOSPITAL [facility] | | | [...] + + | [place] [facility] | [address] | [place] [address] | [phone] | | HOSPITAL [facility] | | | [...] + + | [place] [facility] | [address] | [place] [address] | [phone] | | HOSPITAL [facility] | | | [...] | mL/min/1.73m2 | [facility] | | | SLOVENIAN | RATE,ESTIMATED | | HOSPITAL | | | | mL/min/1.69w8Mvyc than | | LABORATORY | | | [...] + + | [place] [facility] | [address] | [place] [address] | [phone] | | HOSPITAL LAB[facility]ORY | | | [...] + + | [place] [facility] | [address] | [place] [address] | [phone] | | HOSPITAL LAB[facility]ORY | | | [...]
--- OUTSIDE RECORDS SUMMARY | ~2019-09-30 | XMS | Encounter Summary ---
Demographics + + + | Address | [address] | | | [place] [address] | + + + | Home Phone [...] Team Providers + +------+ + | Care Employment Appeals Examiner Name | Role | Phone | + [...] | [address] [place] | [facility] | | | | | [place], [place] | [place] [address] | | | | | [address] | [phone] | | | | | [phone] | | | +--------+ + + + [...] | | | | | [place] [address] | | | | | | [phone] | | | | | | | | +--------+ + + + + | 10/30/ | Office | Primary Care | Erika Ernst, | | | 2019 | Visit | | DO [address] [place] | | | | | | [place] [address] | | | | | | [phone] | | | | | | | [...] [place] | | | | | | [address] | | | | | | [phone] | | | | | | | | +--------+ + + + + | 02/09/ | Office | Neurology | Dhara, | | | 2019 | Visit | | DWAINE Ross [address] | | | | | [address] [place], | | | | | | [place] [address] | | | | | | [phone] | | | | | | | | +--------+ + + + + documented as of this encounter Visit Diagnoses Not on filedocumented in this encounter"
--- OUTSIDE RECORDS SUMMARY | ~2019-09-30 | XMS | Encounter Summary ---
Demographics + + + | Address | [address] | | | [place] [address] | + + + | Home Phone [...] Team Providers + +------+ + | Care District Administrative Assistant Name | Role | Phone [...] | | | of left | [place] [address] | [place] [address] | | | | | ankle, | Phone: | Phone: | | | | | initial | [phone] | [phone] | | | | | encounter | Fax: | Fax: | | | | | Procedures | [phone] | [phone] | | | | | PT TREAT | | | +--------+--------+ + + + + Encounter Details +--------+ + + + + | Date | Type | Department | Care Team | Description | +--------+ + + + + | 10/09/ | Hospital | [place] [facility] | Erika Ernst, | Sprain of left | | 2019 | Encounter | HOSPITAL THERAPY PT | DO [address] | ankle, subsequent | | | | [address] [place] | [place] [address] | encounter (Primary | | | | [place], [place] | [phone] | Dx); Fall on same | | | | [address] | | level from slipping, | | | | [phone] | Julia Castillo | subsequent | | [...] Take 1 tablet by | 3 | 0 | 10/09/19 | | | (DIFLUCAN) 150 mg | mouth Daily for 3 | tablet | | 19 | 9 | | tablet | doses. | | | | | + [...] Take 1 tablet by | 30 | 3 | 10/09/19 | | | (DESYREL) 50 mg | mouth nightly as | tablet | | 19 | 9 | | tablet | needed for Insomnia. | | | | | + + + +---------+ + + documented as of this encounter Progress Notes Julia Castillo, PT - 10/09/2018 1:33 PM PSTFormatting of this note might be differen t from the original. [facility] PT [address] [place] [address] Physical Therapy Daily Treatment Note Date: 10/09/2018 Patient Information Patient Name: Andrea Suh Date of : 1990 Age: 28 y.o. Encounter Diagnoses Code Name Primary? S93.402D Sprain of left ankle, subsequent encounter Yes W01.0XXD Fall on same level from slipping, subsequent encounter Date of Onset: 06/11/2018 Referring Provider: Erika Ernst DO Objective Pain Assessment: Pain Rating Pre Assessment: 3 Pain Rating Post Assessment: 3 Location: L medial ankle Today's Treatment Patient Name: Andrea Suh/: 1990/ Start Time: 1100 Stop time: 1130 Duration: 30 minutes Timed Treatment Codes: 30 minutes # of PT Visits to Date: 18 Visit Summary: S: Pt states she is about the same, most difficulty with longer distance wa lking. Continues to use pool in [place] for aquatic exercises. Overall, feels like ankle is more stable, just has lingering pain. A: Pt demo'd improved balance with exercises away from wall and able to increase velocity of activity. Independent with current program and pt plans to continue on her own with aquatic exercises. Next Visit Information: Progress LE strength and balance exercises with steps, bosu, bridge progression, quantum, leg press, lunges. Patient/Caregiver Education Learner: Patient Readiness: Acceptance Method: Explanation, Demonstration Response: Verbalizes Understanding, Demonstrated Understanding Comment: aquatic exercise Aquatic Basic Exercise Program Walkin minutes Depth: chest Type of Walking: forward, backward, side step, marching Stretches: calf, hamstrings Aerobics Aerobic Exercise: LE Exercise LE Exercise - Level of Assistance: free standing LE Exercise Comments: Away from wall for stabilizaton: knee flex/ext, hip flex/ext, hip abd /add, SLS with UE motion; At wall: single heel raises 2 x 20 B, single leg squats; march soniya p across pool with focus on quick balance; lunges across pool Assessment Rehabilitation potential: Patient demonstrates [...] today Electronically signed by: Julia Castillo, PT, 10/09/2018 13:33 Patient Name: Andrea Henaonanci/: 1990/ documented in [...] | | | | | [place] [address] | | | | | | [phone] | | | | | | | | +--------+ + + + + | 10/30/ | Office | Primary Care | Erika Ernst, | | | 2019 | Visit | | DO [address] [place] | | | | | | [place] [address] | | | | | | [phone] | | | | | | | | +--------+ + + + + | 11/07/ | Appointment | Nutrition | Janel Webster | | | 2019 | | | [place] | | +--------+ + + + + | 11/28/ | Office | Otolaryngology | Anthony Alvarado MD | | | 2019 | Visit | | [address] | | | | | | [place], [place] | | | | | | [address] | | | | | | [phone] | | | | | | | | +--------+ + + + + | 02/09/ | Office | Neurology | Dhara, | | | 2019 | Visit | | DWAINE Ross [address] | | | | [address] [place], | | | | | | [place] [address] | | | | | | [phone] | | | | | | | | +--------+ + + + + documented as of this encounter Visit Diagnoses + + | Diagnosis | + + | Sprain of left ankle, subsequent encounter - Primary | + + | Fall on same level from slipping, subsequent encounter | + + documented in this encounter"
--- OUTSIDE RECORDS SUMMARY | ~2019-09-30 | XMS | Encounter Summary ---
Demographics + + + | Address | [address] | | | [place] [address] | + + + | Home Phone [...] Team Providers + +------+ + | Care Case Consultant Name | Role | Phone | [...] | [place] | [place] [address] | | | | | [address] | [phone] | | | | | [phone] | | | +--------+ + + + [...] | | | | | [place] [address] | | | | | | [phone] | | | | | | | | +--------+ + + + + | 10/30/ | Office | Primary Care | Erika Ernst, | | | 2019 | Visit | | DO [address] [place] | | | | | | [place] [address] | | | | | | [phone] | | | | | | | [...] [place] | | | | | | [address] | | | | | | [phone] | | | | | | | | +--------+ + + + + | 02/09/ | Office | Neurology | Dhara, | | | 2019 | Visit | | DWAINE Ross [address] | | | [address] [place], | | | | | | [place] [address] | | | | | | [phone] | | | | | | | | +--------+ + + + + documented as of this encounter Visit Diagnoses Not on filedocumented in this encounter"
--- OUTSIDE RECORDS SUMMARY | ~2019-09-30 | XMS | Encounter Summary ---
Demographics + + + | Address | [address] | | | [place] [address] | + + + | Home Phone [...] Team Providers + +------+ + | Care Printed Circuit Board Designer Name | Role | Phone | + +------+ + PCP | Unavailable | + +------+ + Encounter Details +--------+ + + + + | Date | Type | Department | Care Team | Description | +--------+ + + + + | [facility]28[facility] | Nicanor Mckeon | | | 2017 | Encounter | [facility] | MD Caryn [address] | | | | | [facility] [address] | [place] | | | | | [facility] [facility], | [address] | | | | | [place] [address] | [phone] | | | | | [phone] | | | +--------+ + + + [...] | | | | | [place] [address] | | | | | | [phone] | | | | | | | | +--------+ + + + + | 10/30/ | Office | Primary Care | Erika Ernst, | | | 2019 | Visit | | DO [address] [place] | | | | | | [place] [address] | | | | | | [phone] | | | | | | | [...] [place] | | | | | | [address] | | | | | | [phone] | | | | | | | | +--------+ + + + + | 02/09/ | Office | Neurology | Dhara, | | | 2019 | Visit | | DWAINE Ross [address] | | [address] [place], | | | | | | [place] [address] | | | | | | [phone] | | | | | | | | +--------+ + + + + documented as of this encounter Visit Diagnoses Not on filedocumented in this encounter"
--- OUTSIDE RECORDS SUMMARY | ~2019-09-30 | XMS | Encounter Summary ---
Demographics + + + | Address | [address] | | | [place] [address] | + + + | Home Phone [...] Team Providers + +------+ + | Care Accreditation Specialist Name | Role | Phone | [...] 10/11/ | Telephone | [place] [facility] | KleverErika, | Other | | 2019 | | [facility] | DO [address] | | | | | [facility] [address] | [place] [address] | | | | | [address] [place], | [phone] | | | | | [place] [address] | | | | | | [phone] | | | +--------+ + + + [...] | 2018 | Visit | | DO [address] [place] [address] | | | | | | [place] [address] | | | | | | [phone] | | | | | | | | +--------+ + + + + | 10/30/ | Office | Primary Care | Erika Ernst, | | | 2019 | Visit | | DO [address] [place] | | | | | | [place] [address] | | | | | | [phone] | | | | | | | [...] [place] | | | | | | [address] | | | | | | [phone] | | | | | | | | +--------+ + + + + | 02/09/ | Office | Neurology | Dhara, | | | 2019 | Visit | | DWAINE Ross [address] | | | [address] [place], | | | | | | [place] [address] | | | | | | [phone] | | | | | | | | +--------+ + + + + documented as of this encounter Visit Diagnoses Not on filedocumented in this encounter"
--- OUTSIDE RECORDS SUMMARY | ~2019-09-30 | XMS | Encounter Summary ---
Demographics + + + | Address | [address] | | | [place] [address] | + + + | Home Phone [...] Team Providers + +------+ + | Care Cable Lacer Name | Role | Phone | + [...] | | | | s (de | [place], [place] | [place] [address] | | | | | quervain) | [address] | Phone: | | | | | Pain in | Phone: | [phone] | | | | | right wrist | [phone] | Fax: | | | | | Procedures | Fax: | [phone] | | | | | OT TREAT | [phone] | | +--------+--------+ + + + + Encounter Details +--------+ + + + + | Date | Type | Department | Care Team | Description | +--------+ + + + + | 10/16/ | Hospital | [place] [facility] | Jeffrey Gandhi, | Radial styloid | | 2019 | Encounter | HOSPITAL THERAPY OT | [address] | tenosynovitis | | | | [address] [place] | [place] [address] | (Primary Dx); Right | | | | [place], [place] | [phone] | wrist pain | | | | [address] | | | | | | [phone] | Nak[facility] Koo OT | | +--------+ [...] PST [facility] [address] [place] [address] Occupational Therapy Progress Assessment Date: 10/16/2018 Patient [...] jar: 4 - Severe Difficulty Do heavy degree clerk: 4 - Severe Difficulty Carry a shopping [...] Deviation: 25 Strength: Left Hand Strength - Manager Change (lbs) L Manager Change Trial 1: 60 L Manager Change Trial Average: 60 L Three Jaw Payam Trial 1: 14 L Three Jaw Payam Trial Average: 14 L Lateral Pinch Trial 1: 16 L Lateral Pinch Trial Average: 16 Right Hand Strength - Manager Change (lbs) R Manager Change Trial 1: 33 R Manager Change Trial Average: 33 R Three Jaw Payam [...] bands and yellow therapy putty to address reconciliation accountant strengthening goals. OT Interventions: Manual Therapy Intervention [...] have some deficits in AROM, pinch and reconciliation accountant strength. She has returned to modified work [...] pt has made progress with her R reconciliation accountant strength, but is still experiencing activity limiting [...] in 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, and reconciliation accountant and pinch weakness in the right hand [...] Goal 2: The pt will have right reconciliation accountant strength of 50 lbs by discharge Goal 2 Status: PARTIALLY MET - Right reconciliation accountant is 33 lbs, left is 60 lbs. [...] 08/07/2018 Certification To: 10/30/2018 Treatment Plan/Interventions OT [id number] - Therapeutic [id number] - Therapeutic [id number] - Self Care/Ho me [id number] - Manual [id number] - Orthotic/Prosthetic Qcttprqq06895 - Mgijgmdwvj903 34 - Contrast Hfco75085 - Paraffin BathSplinting Moist heat, cold therapy [...] | | | | | [place] [address] | | | | | | [phone] | | | | | | | | +--------+ + + + + | 10/30/ | Office | Primary Care | Erika Ernst, | | | 2019 | Visit | | DO [address] [place] | | | | | | [place] [address] | | | | | | [phone] | | | | | | | [...] [place] | | | | | | [address] | | | | | | [phone] | | | | | | | | +--------+ + + + + | 02/09/ | Office | Neurology | Dhara, | | | 2019 | Visit | | DWAINE Ross [address] | | [address] [place], | | | | | | [place] [address] | | | | | | [phone] | | | | | | | | +--------+ + + + + documented as of this encounter Visit Diagnoses + + | Diagnosis | + + | Radial styloid tenosynovitis - Primary | + + | Right wrist pain Pain in joint, forearm | + + documented in this encounter"
--- OUTSIDE RECORDS SUMMARY | ~2019-09-30 | XMS | Encounter Summary ---
Demographics + + + | Address | [address] | | | [place] [address] | + + + | Home Phone [...] Team Providers + +------+ + | Care Marble Finisher Name | Role | Phone | [...] + | 04/01/ | Telephone | [facility] [facility] | Klever Erika A, | Other | | 2019 | | [facility] | DO [address] | | | | | [facility] [address] | [place] [address] | | | | | [address] [place], | [phone] | | | | | [place] [address] | | | | | | [phone] | | | +--------+ + + + [...] | | | | | [place] [address] | | | | | | [phone] | | | | | | | | +--------+ + + + + | 10/30/ | Office | Primary Care | Erika Ernst, | | | 2019 | Visit | | DO [address] | | | | | | [place] [address] | | | | | | [phone] | | | | | | | | +--------+ + + + + | 11/07/ | Appointment | Nutrition | Janel Webster | | | 2019 | | | [place] | | +--------+ + + + + | 11/28/ | Office | Otolaryngology | Anthony Alvaardo MD | | 2019 | Visit | | [address] | | | | | | [place] | | | | | | [address] | | | | | | [phone] | | | | | | | | +--------+ + + + + | 02/09/ | Office | Neurology | Dhara, | | | 2020 | Visit | | [address] | | | | | | [address] [place], | | | | | | [place] [address] | | | | | | [phone] | | | | | | | | +--------+ + + + + documented as of this encounter Visit Diagnoses Not on filedocumented in this encounter"
--- OUTSIDE RECORDS SUMMARY | ~2019-09-30 | XMS | Encounter Summary ---
Demographics + + + | Address | [address] | | | [place] [address] | + + + | Home Phone [...] Team Providers + +------+ + | Care Stick Inserter Name | Role | Phone | + +------+ + PCP | Unavailable | + +------+ + Encounter Details +--------+ + + + + | Date | Type | Department | Care Team | Description | +--------+ + + + + | 08/06/ | [facility] | Caro Zendejas | | | 2012 | Encounter | [facility] | Vale, BELLMAN CAPTAIN [address] | | | | | [facility] [address] | [facility] [place], [place] | | | | | [address] [facility], | [address] | | | | | [place] [address] | [phone] | | | | | [phone] | | | +--------+ + + + [...] | | | | | [place] [address] | | | | | | [phone] | | | | | | | | +--------+ + + + + | 10/30/ | Office | Primary Care | Erika Ernst, | | | 2019 | Visit | | DO [address] | | | | | | [place] [address] | | | | | | [phone] | | | | | | | [...] [place] | | | | | | [address] | | | | | | [phone] | | | | | | | | +--------+ + + + + | 02/09/ | Office | Neurology | Dhara, | | | 2020 | Visit | | [address] | | | | | | [address] [place], | | | | | | [place] [address] | | | | | | [phone] | | | | | | | | +--------+ + + + + documented as of this encounter Visit Diagnoses Not on filedocumented in this encounter"
--- OUTSIDE RECORDS SUMMARY | ~2019-09-30 | XMS | Encounter Summary ---
Demographics + + + | Address | [address] | | | [place] [address] | + + + | Home Phone [...] | [place], [place] | [place] [address] | | | | | [address] | [phone] | | | | | [phone] | | | +--------+ + + + [...] | | | | | [place] [address] | | | | | | [phone] | | | | | | | | +--------+ + + + + | 10/30/ | Office | Primary Care | Erika Ernst, | | | 2019 | Visit | | DO [address] [place] | | | | | | [place] [address] | | | | | | [phone] | | | | | | | [...] [place] | | | | | | [address] | | | | | | [phone] | | | | | | | | +--------+ + + + + | 02/09/ | Office | Neurology | Dhara, | | | 2020 | Visit | | [address] | | | | | | [address]TH [place], | | | | | | [place] [address] | | | | | | [phone] | | | | | | | | +--------+ + + + + documented as of this encounter Visit Diagnoses Not on filedocumented in this encounter"
--- OUTSIDE RECORDS SUMMARY | ~2019-09-30 | XMS | Encounter Summary ---
Demographics + + + | Address | [address] | | | [place] [address] | + + + | Home Phone [...] Team Providers + +------+ + | Care Folder Seamer Automatic Name | Role | Phone | [...] Description | +--------+---------+ + + + | 07/06/ | Office | [place] [facility] | Erika Ernst, | Strain of left | | 2018 | Visit | [facility] | DO [address] | ankle, subsequent | | | | MEDICAL [facility] [address] | [place] [address] | encounter (Primary | | | | [address] [place], | [phone] | Dx) | | | | [place] [address] | | | | | | [phone] | | | +--------+---------+ + + + [...] + + + | Blood Pressure | 144/84 | 07/06/2018 1:57 PM | | | | | PDT | | + + + + + | Pulse | 84 | 07/06/2018 1:57 PM | | | | | PDT | | + + + + + | Temperature | - | - | | + + + + + | Respiratory Rate | 16 | 07/06/2018 1:57 PM | | | | | PDT | | + + + + + | Oxygen Saturation | 98% | 07/06/2018 1:57 PM | | | | | PDT | | + + + + + | Inhaled Oxygen | - | - | | | Concentration | | | | + + + + + | Weight | 166.5 kg (367 lb) | 07/06/2018 1:57 PM | | | | | PDT | | + + + + + | Height | 177.8 cm (5' 10") | 07/06/2018 1:57 PM | | | | | PDT | | + + + + + | Body Mass Index | 52.66 | 07/06/2018 1:57 PM | | | | | PDT | | + + + + + documented in this encounter Progress Notes Erika Ernst DO - 07/06/2018 2:00 PM PDTFormatting of this note might be different fro m the original. Subjective: Patient ID: Andrea Suh is a 28 y.o. female. Here to FU on her left ankle strain. Her injury is work comp. She has seen ortho and determ ined to be a strain no fracture. She has started PT and will be continuing it 2 X a week. S he still is having pain and needs to continue with sitting duty only at work. Prolonged porfirio ding or walking still causes increased pain. Review of Systems Constitutional: States has not felt very good this week but no specifics. HENT: Negative. Eyes: Negative. Respiratory: Negative. Cardiovascular: Negative. Gastrointestinal: Negative. Musculoskeletal: Ankle pain mild at present Skin: Negative. Neurological: Negative. Psychiatric/Behavioral: Negative. Social [...] on file Outpatient Encounter Prescriptions as of 07/06/2018 Medication Sig Dispense Refill amLODIPine (NORVASC) 5 [...] facility-administered encounter medications on file as of 07/06/2018. Allergies Allergen Reactions Escitalopram Palpitations Latex Rash Hydrocodone Hives Uncoded Nonscreenable Allergen Other (See Comments) Other reaction(s): Proclivity to C-diff with certain antibiotics Adhesive & Tape Rash Objective: BP 144/84 | Pulse 84 | Resp 16 | Ht 1.778 m (5' 10") | Wt (!) 166.5 kg (367 lb) | LMP 06/29/2018 | SpO2 98% | ? No | BMI 52.66 kg/m Physical Exam Constitutional: She is oriented to person, place, and time. She appears well-developed and well-nourished. No distress. HENT: Head: Normocephalic and atraumatic. Mouth/Throat: Oropharynx is clear and moist. TM's clear bilaterally Eyes: Pupils are equal, round, and reactive to light. Conjunctivae and EOM are normal. Righ t eye exhibits no discharge. Left eye exhibits no discharge. No scleral icterus. Neck: Neck supple. Cardiovascular: Normal rate, regular rhythm and normal heart sounds. No murmur heard. Pulmonary/Chest: Effort normal and breath sounds normal. No respiratory distress. She has n o wheezes. She has no rales. Musculoskeletal: Ambulatory but still indicates pain medially and laterally left malleoli Lymphadenopathy: She has no cervical adenopathy. Neurological: She is alert and oriented to person, place, and time. Skin: Skin is warm and dry. Psychiatric: She has a normal mood and affect. Her behavior is normal. Judgment and thought content normal. Assessment: 1. Strain of left ankle, subsequent encounter Plan: She will continue physical therapy for the left ankle. Remain on light duty with sitting du ty only to avoid any strain with prolonged standing or walking until has progressed in PT an d healed enough to avoid re-injury. Letter given for work. documented in this en counter Plan of Treatment +--------+ + + + + | Date | Type | Specialty | Care Team | Description | +--------+ + + + + | 10/01/ | Office | Primary Care | Erika Ernst, | | | 2018 | Visit | | DO [address] | | | | | | [place] [address] | | | | | | [phone] | | | | | | | | +--------+ + + + + | 10/30/ | Office | Primary Care | Erika Ernst, | | | 2019 | Visit | | DO [address] [place] | | | | | | [place] [address] | | | | | | [phone] | | | | | | | [...] [place] | | | | | | [address] | | | | | | [phone] | | | | | | | | +--------+ + + + + | 02/09/ | Office | Neurology | Dhara, | | | 2019 | Visit | | [address] | | | | | | [address] [place], | | | | | | [place] [address] | | | | | | [phone] | | | | | | | | +--------+ + + + + documented as of this encounter Visit Diagnoses + + | Diagnosis | + + | Strain of left ankle, subsequent encounter - Primary | + + documented in this encounter
--- OUTSIDE RECORDS SUMMARY | ~2019-09-30 | XMS | Encounter Summary ---
Demographics + + + | Address | [address] | | | [place] [address] | + + + | Home Phone [...] Team Providers + +------+ + | Care Analytical Research Chemist Name | Role | Phone | + [...] pt | | 2019 | | [facility] | [address] | on 09-10-19 - Pt | | | | [facility] [address] | [place] [address] | needs to know when | | | | [address] [place], | [phone] | she's due for lab | | | | [place] [address] | | draw) | | | | [phone] | | | +--------+ + + + [...] | | | | | [place] [address] | | | | | | [phone] | | | | | | | | +--------+ + + + + | 10/30/ | Office | Primary Care | Erika Ernst, | | | 2019 | Visit | | DO [address] [place] | | | | | | [place] [address] | | | | | | [phone] | | | | | | | [...] [place] | | | | | | [address] | | | | | | [phone] | | | | | | | | +--------+ + + + + | 02/09/ | Office | Neurology | Dhara, | | | 2019 | Visit | | [address] | | | | | | [address] [place], | | | | | | [place] [address] | | | | | | [phone] | | | | | | | | +--------+ + + + + documented as of this encounter Visit Diagnoses Not on filedocumented in this encounter"
--- OUTSIDE RECORDS SUMMARY | ~2019-09-30 | XMS | Encounter Summary ---
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 Subjective: HPI: Patient presents to the [facility] for migraine. Yesterday morning she woke up [...] normal. Entered by Marissa Bautista CNA 2, [facility], acting as scribe for Brandi Pitts DO. The documentation recorded by the scribe accurately reflects the service I personally perfo [facility] and the decisions made by me. Electronically signed by: Brandi Pitts DO 08/21/2019 9:33 AM Note: Part of this report was transcribed using voice recognition software. Every effort wa s made to ensure accuracy. However, inadvertent computerized chief diversity officer errors may be pre sent. documented [...] | | | | | [place] [address] | | | | | | [phone] | | | | | | | | +--------+ + + + + | 10/30/ | Office | Primary Care | Erika Ernst, | | | 2019 | Visit | | DO [address] [place] | | | | | | [place] [address] | | | | | | [phone] | | | | | | | [...] [place] | | | | | | [address] | | | | | | [phone] | | | | | | | | +--------+ + + + + | 02/09/ | Office | Neurology | Dhara, | | | 2019 | Visit | | [address] | | | | | | [address] [place], | | | | | | [place] [address] | | | | | | [phone] | | | | | | | [...]
--- OUTSIDE RECORDS SUMMARY | ~2019-09-30 | XMS | Encounter Summary ---
Demographics + + + | Address | [address] | | | [place] [address] | + + + | Home Phone [...] Providers + +------+ + | Care Inspector Machine Cut Glass Name | Role | Phone | + +------+ + PCP | Unavailable | + +------+ + Encounter Details +--------+ + + + + | Date | Type | Department | Care Team | Description | +--------+ + + + + | 11/14/ | [facility] | Anthony Alvarado MD | | | 2017 | Encounter | [facility] | [address] | | | | | [place] | [place], [place] | | | | | [place] | [address] | | | | | [address] | [phone] | | | | | [phone] | | | +--------+ + + + [...] | | | | | [place] [address] | | | | | | [phone] | | | | | | | | +--------+ + + + + | 10/30/ | Office | Primary Care | Erika Ernst, | | | 2019 | Visit | | DO [address] [place] | | | | | | [place] [address] | | | | | | [phone] | | | | | | | [...] [place] | | | | | | [address] | | | | | | [phone] | | | | | | | | +--------+ + + + + | 02/09/ | Office | Neurology | Dhara, | | | 2019 | Visit | | [address] | | | | | | [address] [place], | | | | | | [place] [address] | | | | | | [phone] | | | | | | | | +--------+ + + + + documented as of this encounter Visit Diagnoses Not on filedocumented in this encounter"
--- OUTSIDE RECORDS SUMMARY | ~2019-09-30 | XMS | Encounter Summary ---
Demographics + + + | Address | [address] | | | [place] [address] | + + + | Home Phone [...] Team Providers + +------+ + | Care Lime Hide Inspector Name | Role | Phone | + +------+ + | Erika Ernst DO | PCP | | + +------+ + Encounter Details +--------+ + + + + | Date | Type | Department | Care Team | Description | +--------+ + + + + | 09/26/ | Orders Only | [place] [facility] | Veronica Huerta, | | | 2018 | | [facility] | [facility] | | | | | [facility]ICAL CL[facility] [address] | | | | | | [address]TH [facility], | | | | | | [place] [address] | | | | | | [phone] | | | +--------+ + + + [...] | | | | | [place] [address] | | | | | | [phone] | | | | | | | | +--------+ + + + + | 10/30/ | Office | Primary Care | Erika Ernst, | | | 2019 | Visit | | DO [address] [place] | | | | | | [place] [address] | | | | | | [phone] | | | | | | | [...] [place] | | | | | | [address] | | | | | | [phone] | | | | | | | | +--------+ + + + + | 02/09/ | Office | Neurology | Dhara, | | | 2019 | Visit | | [address] | | | | | | [address] [place], | | | | | | [place] [address] | | | | | | [phone] | | | | | | | | +--------+ + + + + documented as of this encounter Visit Diagnoses Not on filedocumented in this encounter"
--- OUTSIDE RECORDS SUMMARY | ~2019-09-30 | XMS | Encounter Summary ---
Demographics + + + | Address | [address] | | | [place] [address] | + + + | Home Phone [...] Team Providers + +------+ + | Care Accounting Practice Manager Name | Role | Phone | [...] | | | PT TREAT | [place] [address] | [place] [address] | | | | | | Phone: | Phone: | | | | | | [phone] | [phone] | | | | | | Fax: | Fax: | | | | | | [phone] | [phone] | +--------+--------+ + + + + Encounter [...] [address] [place] | [place] [address] | Sprain of | | | | [place], [place] | [phone] | calcaneofibular | | | | [address] | | ligament of left | | | | [phone] | Julia Peña, | ankle, subsequent | | | | | POST SECONDARY PROFESSIONAL | encounter; History | | | | [...] | 11/26/19 | | | (VITAMIN D3) 78055 | mouth Once a week | tablet [...] 1:10 PM PDTICD 10 codes updated per messenger office request see below: Coding has been updated for this PT series ([id number]) based on the documentation on the plan of care. Please code visit diagnoses as follows: Primary: M25.561 Pain in right knee Secondary: S93.402D Sprain of unspecified ligament of left ankle, subsequent encounter E66.9 Obesity, unspecified Z91.81 History of falling Electronically signed by: Julia Fisher PT, 01/16/2019 13:10 Julia Banks, POST SECONDARY PROFESSIONAL - 01/16/2019 8:53 AM PDT . [facility] PT [address] [place] [address] Physical Therapy Daily Treatment Note Date: 01/16/2019 [...] Seated marching 1minx2. LAQ Ongoing: Wall sits [id number] holds, Bridging 3 x 10 reps, Side [...] | | | | | [place] [address] | | | | | | [phone] | | | | | | | | +--------+ + + + + | 10/30/ | Office | Primary Care | Erika Ernst, | | | 2019 | Visit | | DO [address] [facility] | | | | | | [place] [address] | | | | | | [phone] | | | | | | | [...] [place] | | | | | | [address] | | | | | | [phone] | | | | | | | | +--------+ + + + + | 02/09/ | Office | Neurology | Dhara, | | | 2019 | Visit | | [address] | | | | | | [address] [facility] [place], | | | | | | [place] [address] | | | | | | [phone] | | | | | | | [...]
--- OUTSIDE RECORDS SUMMARY | ~2019-09-30 | XMS | Encounter Summary ---
Demographics + + + | Address | [address] | | | [place] [address] | + + + | Home Phone [...] Team Providers + +------+ + | Care Tower Truck Driver Name | Role | Phone [...] | | | | [place] | [place] [address] | [place], [place] | | | | | Procedures | Phone: | [address] | | | | | OUTGOING | [phone] | Phone: | | | | | | Fax: | [phone] | | | | | | [phone] | Fax: | | | | | | | [phone] | + + + + + + [...] | | | [place], [place] | [address] | (Primary Dx) | | | | [address] | | | | | | [phone] | | | +--------+---------+ + + + [...] | : 1990 | Medical Record Number:[id number] | Author: Emily Mittal DPM | Date [...] ankle, sequela S93.422S 905.7 Orthopedic Surgery, Ext [facility] Referral 845.01 Treatment and Plan of [...] deemed to be medically stationary by the [facility] orthopedic surgeon and by myself. I have recommended to the patient that she seek another opinion from the [facility] in [facility]. I've re commended that she obtain her medical records in addition to her x-rays and MRI to allow for evaluation by another set of eyes in the hope that an overall more positive outcome for the patient can be reached. I expressed concern for this patient and believe that she may find resolution with a fourth opinion. I spent 15 minutes [id number] with the patient, with over 50% spent [...] E.C.U. Tendon; Surgeon: Inocencio Noriega MD; Location: [facility] SURGERY RIGHT KIDNER PROCEDURE 01/20/2016 Surgeon: Fani Mahajan MD; Location: [facility] TENDON RELEASE TONSILLECTOMY WISDOM TOOTH EXTRACTION Family History Problem Relation Age of Onset Other (see comment) Mother gallbladder disease Diabetes Mother Heart disease Mother Hypertension Father Other (see comment) Father arrhymthmia Breast cancer Sister Breast cancer Maternal Grandmother Heart attack Maternal Aunt [place] Hypertension Maternal Uncle Social History Socioeconomic History [...] and their vital signs recorded by my religious assistant today, a s found in this chart note. Electronically signed by: Emily Mittal DPM 12/06/2018 at 16:19 Note: Part of this report was transcribed using voice recognition software. Every effort wa s made to ensure accuracy. However, inadvertent computerized house wirer errors may be pre sent. CC: Erika [...] [address] | | | | | | [phone] | | | | | | | | +--------+ + + + + | 10/30/ | Office | Primary Care | Erika Ernst, | | | 2019 | Visit | | DO [address] [place] | | | | | | [place] [address] | | | | | | [phone] | | | | | | | [...] [place] | | | | | | [address] | | | | | | [phone] | | | | | | | | +--------+ + + + + | 02/09/ | Office | Neurology | Dhara, | | | 2019 | Visit | | [address] | | | | | [address] [place], | | | | | | [place] [address] | | | | | | [phone] | | | | | | | [...]
--- OUTSIDE RECORDS SUMMARY | ~2019-09-30 | XMS | Encounter Summary ---
Demographics + + + | Address | [address] | | | [place] [address] | + + + | Home Phone [...] Team Providers + +------+ + | Care Adolescent Medicine Specialist Name | Role | Phone | + +------+ + PCP | Unavailable | + +------+ + Encounter Details +--------+ + + + + | Date | Type | Department | Care Team | Description | +--------+ + + + + | [facility] Denise Mcgregor | | | [facility] | Encounter | [facility] | G, PRENATAL TEACHER [address] | | | | | [facility]ICAL CL[facility] [address] | [facility] [place] | | | | | [address] [facility], | [address] | | | | | [place] [address] | [phone] | | | | | [phone] | | | +--------+ + + + [...] | | | | | [place] [address] | | | | | | [phone] | | | | | | | | +--------+ + + + + | 10/30/ | Office | Primary Care | Erika Ernst, | | | 2019 | Visit | | DO [address] [place] | | | | | | [place] [address] | | | | | | [phone] | | | | | | | [...] [place] | | | | | | [address] | | | | | | [phone] | | | | | | | | +--------+ + + + + | 02/09/ | Office | Neurology | Dhara, | | | 2019 | Visit | | [address] | | | | | [address] [place], | | | | | | [place] [address] | | | | | | [phone] | | | | | | | | +--------+ + + + + documented as of this encounter Visit Diagnoses Not on filedocumented in this encounter"
--- OUTSIDE RECORDS SUMMARY | ~2019-09-30 | XMS | Encounter Summary ---
Demographics + + + | Address | [address] | | | [place] [address] | + + + | Home Phone [...] Team Providers + +------+ + | Care Sub Arc Operator Name | Role | Phone | + +------+ + | Erika Ernst DO | PCP | | + +------+ + Encounter Details +--------+ + + + + | Date | Type | Department | Care Team | Description | +--------+ + + + + | 07/19/ | Orders Only | [place] [facility] | Erika Ernst, | Essential | | 2019 | | [facility] | DO [address] [place] | hypertension | | | | MEDICAL CLINIC [address] | [place] [address] | (Primary Dx) | | | | [address] [place], | [phone] | | | | | [place] [address] | | | | | | [phone] | | | +--------+ + + + [...] 2019 | Visit | | DO [address] | | | | | | [place] [address] | | | | | | [phone] | | | | | | | | +--------+ + + + + | 10/30/ | Office | Primary Care | Erika Ernst, | | | 2019 | Visit | | DO [address] [place] | | | | | | [place] [address] | | | | | | [phone] | | | | | | | [...] [place] | | | | | | [address] | | | | | | [phone] | | | | | | | | +--------+ + + + + | 02/09/ | Office | Neurology | Dhara, | | | 2019 | Visit | | [address] | | | | | | [address] [place], | | | | | | [place] [address] | | | | | | [phone] | | | | | | | | +--------+ + + + + documented as of this encounter Visit Diagnoses + + | Diagnosis | + + | Essential hypertension - Primary Unspecified essential hypertension | + + documented in this encounter"
--- OUTSIDE RECORDS SUMMARY | ~2019-09-30 | XMS | Encounter Summary ---
Demographics + + + | Address | [address] | | | [place] [address] | + + + | Home Phone [...] Team Providers + +------+ + | Care Non Profit Director Name | Role | Phone | [...] | MEDICAL CLINIC [address] | [place] [address] | | | | | [address] [place], | [phone] | | | | | [place] [address] | | | | | | [phone] | | | +--------+ + + + [...] | | | | | [place] [address] | | | | | | [phone] | | | | | | | | +--------+ + + + + | 10/30/ | Office | Primary Care | Erika Ernst, | | | 2019 | Visit | | DO [address] [place] | | | | | | [place] [address] | | | | | | [phone] | | | | | | | [...] [place] | | | | | | [address] | | | | | | [phone] | | | | | | | | +--------+ + + + + | 02/09/ | Office | Neurology | Dhara, | | | 2019 | Visit | | [address] | | | | | | [address] [place], | | | | | | [place] [address] | | | | | | [phone] | | | | | | | | +--------+ + + + + documented as of this encounter Visit Diagnoses Not on filedocumented in this encounter"
--- OUTSIDE RECORDS SUMMARY | ~2019-09-30 | XMS | Encounter Summary ---
Demographics + + + | Address | [address] | | | [place] [address] | + + + | Home Phone [...] Team Providers + +------+ + | Care Filer Repairer Name | Role | Phone | [...] [address] | [facility] [place] [address] | | | | | [address] [place], | [phone] | | | | | [place] [address] | | | | | | [phone] | | | +--------+ + + + [...] 2019 | Visit | | DO [address] | | | | | | [place] [address] | | | | | | [phone] | | | | | | | | +--------+ + + + + | 10/30/ | Office | Primary Care | Erika Ernst, | | | 2019 | Visit | | DO [address] [place] | | | | | | [place] [address] | | | | | | [phone] | | | | | | | [...] [place] | | | | | | [address] | | | | | | [phone] | | | | | | | | +--------+ + + + + | 02/09/ | Office | Neurology | Dhara, | | | 2019 | Visit | | [address] | | | | | | [address] [place], | | | | | | [place] [address] | | | | | | [phone] | | | | | | | [...] + + | [place] [facility] | [address] | [place] [address] | [phone] | | [facility] | | | | + + + + + documented in this encounter Visit Diagnoses + + | Diagnosis | + + | Lymphocytosis - Primary Lymphocytosis (symptomatic) | + + documented in this encounter"
--- OUTSIDE RECORDS SUMMARY | ~2019-09-30 | XMS | Encounter Summary ---
Demographics + + + | Address | [address] | | | [place] [address] | + + + | Home Phone [...] Team Providers + +------+ + | Care Advertising Campaign Manager Name | Role | Phone | [...] [address] | | | | | [place] [address] | | | | | | [phone] | | | +--------+ + + + [...] | | | | | [place] [address] | | | | | | [phone] | | | | | | | | +--------+ + + + + | 10/30/ | Office | Primary Care | Erika Ernst, | | | 2019 | Visit | | DO [address] | | | | | | [place] [address] | | | | | | [phone] | | | | | | | [...] [place] | | | | | | [address] | | | | | | [phone] | | | | | | | | +--------+ + + + + | 02/09/ | Office | Neurology | Dhara, | | | 2020 | Visit | | [address] | | | | | | [address] [place], | | | | | | [place] [address] | | | | | | [phone] | | | | | | | | +--------+ + + + + documented as of this encounter Visit Diagnoses Not on filedocumented in this encounter"
--- OUTSIDE RECORDS SUMMARY | ~2019-09-30 | XMS | Encounter Summary ---
Demographics + + + | Address | [address] | | | [place] [address] | + + + | Home Phone [...] Team Providers + +------+ + | Care Dress Operator Name | Role | Phone | + +------+ + PCP | Unavailable | + +------+ + Encounter Details +--------+ + + + + | Date | Type | Department | Care Team | Description | +--------+ + + + + | 07/23/ | Hospital | [place] [facility] | Sahil, | | | 2014 | Encounter | H[facility]PITAL [facility] PT | Eloina Du MD | | | | | [address] | [address] | | | | | [place] | [place] | | | | | [address] | [address] | | | | | [phone] | [phone] | | | | | | | [...] | | | | | [place] [address] | | | | | | [phone] | | | | | | | | +--------+ + + + + | 10/30/ | Office | Primary Care | Erika Ernst, | | | 2019 | Visit | | DO [address] [place] | | | | | | [place] [address] | | | | | | [phone] | | | | | | | [...] [place] | | | | | | [address] | | | | | | [phone] | | | | | | | | +--------+ + + + + | 02/09/ | Office | Neurology | Dhara, | | | 2020 | Visit | | [address] | | | | | | [address] [place], | | | | | | [place] [address] | | | | | | [phone] | | | | | | | | +--------+ + + + + documented as of this encounter Visit Diagnoses Not on filedocumented in this encounter"
--- OUTSIDE RECORDS SUMMARY | ~2019-09-30 | XMS | Encounter Summary ---
Demographics + + + | Address | [address] | | | [place] [address] | + + + | Home Phone [...] Team Providers + +------+ + | Care Glaze Carrier Name | Role | Phone | [...] | [facility] | VASCULAR TECHNICIAN | | | | | MEDICAL CLIN[facility] [address] | | | | | | [address] [facility] [place], | | | | | | [place] [address] | | | | | | [phone] | | | +--------+ + + + [...] | | | | | [place] [address] | | | | | | [phone] | | | | | | | | +--------+ + + + + | 10/30/ | Office | Primary Care | Erika Ernst, | | | 2019 | Visit | | DO [address] [place] | | | | | | [place] [address] | | | | | | [phone] | | | | | | | [...] [place] | | | | | | [address] | | | | | | [phone] | | | | | | | | +--------+ + + + + | 02/09/ | Office | Neurology | Dhara, | | | 2019 | Visit | | [address] | | | | | | [address] [place], | | | | | | [place] [address] | | | | | | [phone] | | | | | | | | +--------+ + + + + documented as of this encounter Visit Diagnoses Not on filedocumented in this encounter"
--- OUTSIDE RECORDS SUMMARY | ~2019-09-30 | XMS | Encounter Summary ---
Demographics + + + | Address | [address] | | | [place] [address] | + + + | Home Phone [...] Team Providers + +------+ + | Care Education Courses Sales Representative Name | Role | Phone [...] + | 08/14/ | Telephone | [place] [facility] | Erika Ernst, | Medication Question | | 2019 | | [facility] | DO [address] | | | | | MEDICAL CLINIC [address] | [facility] [place] [address] | | | | | [address] [facility], | [phone] | | | | | [place] [address] | | | | | | [phone] | | | +--------+ + + + [...] | | | | | [place] [address] | | | | | | [phone] | | | | | | | | +--------+ + + + + | 10/30/ | Office | Primary Care | Erika Ernst, | | | 2019 | Visit | | DO [address] [place] | | | | | | [place] [address] | | | | | | [phone] | | | | | | | [...] [place] | | | | | | [address] | | | | | | [phone] | | | | | | | | +--------+ + + + + | 02/09/ | Office | Neurology | Dhara, | | | 2020 | Visit | | [address] | | | | | | [address] [place], | | | | | | [place] [address] | | | | | | [phone] | | | | | | | | +--------+ + + + + documented as of this encounter Visit Diagnoses Not on filedocumented in this encounter"
--- OUTSIDE RECORDS SUMMARY | ~2019-09-30 | XMS | Encounter Summary ---
Demographics + + + | Address | [address] | | | [place] [address] | + + + | Home Phone [...] | CENTER [address] | [facility] | | | | | DR [place] | [place] [address] | | | | | [address] | [phone] | | | | | [phone] | | | +--------+ + + + [...] | | | | | [place] [address] | | | | | | [phone] | | | | | | | | +--------+ + + + + | 10/30/ | Office | Primary Care | Erika Ernst, | | | 2019 | Visit | | DO [address] [place] | | | | | | [place] [address] | | | | | | [phone] | | | | | | | [...] [place] | | | | | | [address] | | | | | | [phone] | | | | | | | | +--------+ + + + + | 02/09/ | Office | Neurology | Dhara, | | | 2020 | Visit | | [address] | | | | | | [address] [place], | | | | | | [place] [address] | | | | | | [phone] | | | | | | | | +--------+ + + + + documented as of this encounter Visit Diagnoses Not on filedocumented in this encounter"
--- OUTSIDE RECORDS SUMMARY | ~2019-09-30 | XMS | Encounter Summary ---
Demographics + + + | Address | [address] | | | [place] [address] | + + + | Home Phone [...] Team Providers + +------+ + | Care Conche Loader And Unloader Name | Role | Phone | + +------+ + | Erika Ernst DO | PCP | | + +------+ + Encounter Details +--------+ + + + + | Date | Type | Department | Care Team | Description | +--------+ + + + + | 12/17/ | Orders Only | [place] [facility] | Emily Mittal DPM | | | 2019 | | HOSPITAL [facility] | [address] [place] | | | | | [address] | [place], [place] | | | | | [place] | [address] | | | | | [address] | | | | | | [phone] | | | +--------+ + + + [...] | | | | | [place] [address] | | | | | | [phone] | | | | | | | | +--------+ + + + + | 10/30/ | Office | Primary Care | Erika Ernst, | | | 2019 | Visit | | DO [address] [place] | | | | | | [place] [address] | | | | | | [phone] | | | | | | | [...] [place] | | | | | | [address] | | | | | | [phone] | | | | | | | | +--------+ + + + + | 02/09/ | Office | Neurology | Dhara, | | | 2019 | Visit | | [address] | | | | | | [address] [place], | | | | | | [place] [address] | | | | | | [phone] | | | | | | | | +--------+ + + + + documented as of this encounter Visit Diagnoses Not on filedocumented in this encounter"
--- OUTSIDE RECORDS SUMMARY | ~2019-09-30 | XMS | Encounter Summary ---
Demographics + + + | Address | [address] | | | [place] [address] | + + + | Home Phone [...] Providers + +------+ + | Care Financial Engineer Name | Role | Phone | + +------+ + | Erika Ernst DO | PCP | | + +------+ + Encounter Details +--------+ + + + + | Date | Type | Department | Care Team | Description | +--------+ + + + + | 09/02/ | Orders Only | [place] [facility] | Anthony Alvarado MD | Left thyroid nodule | | 2019 | | HOSPITAL E[facility] [address] | [address] | | | | | [address] [place] | [place] | | | | | [place], [place] | [address] | | | | | [address] | [phone] | | | | | [phone] | | | +--------+ + + + [...] | | | | | [place] [address] | | | | | | [phone] | | | | | | | | +--------+ + + + + | 10/30/ | Office | Primary Care | Erika Ernst, | | | 2019 | Visit | | DO [address] [place] | | | | | | [place] [address] | | | | | | [phone] | | | | | | | [...] [place] | | | | | | [address] | | | | | | [phone] | | | | | | | | +--------+ + + + + | 02/09/ | Office | Neurology | Dhara, | | | 2019 | Visit | | [address] | | | | | | [address] [place], | | | | | | [place] [address] | | | | | | [phone] | | | | | | | [...]
--- OUTSIDE RECORDS SUMMARY | ~2019-09-30 | XMS | Encounter Summary ---
Demographics + + + | Address | [address] | | | [place] [address] | + + + | Home Phone [...] Providers + +------+ + | Care Web Applications Programmer Name | Role | Phone | + +------+ + | Erika Ernst DO | PCP | | + +------+ + Encounter Details +--------+ + + + + | Date | Type | Department | Care Team | Description | +--------+ + + + + | 03/19/ | Orders Only | [place] [facility] | Erika Ernst, | Vitamin D deficiency | | 2018 | | [facility] | DO [address] | | | | | MEDICAL CLINIC [address] | [facility] [place] [address] | | | | | [address] [place], | [phone] | | | | | [place] [address] | | | | | | [phone] | | | +--------+ + + + [...] | | | | | [place] [address] | | | | | | [phone] | | | | | | | | +--------+ + + + + | 10/30/ | Office | Primary Care | Erika Ernst, | | | 2019 | Visit | | DO [address] [place] | | | | | | [place] [address] | | | | | | [phone] | | | | | | | [...] [place] | | | | | | [address] | | | | | | [phone] | | | | | | | | +--------+ + + + + | 02/09/ | Office | Neurology | Dhara, | | | 2019 | Visit | | [address] | | | | | | [address] [place], | | | | | | [place] [address] | | | | | | [phone] | | | | | | | | +--------+ + + + + documented as of this encounter Visit Diagnoses + + | Diagnosis | + + | Vitamin D deficiency Unspecified vitamin D deficiency | + + documented in this encounter"
--- OUTSIDE RECORDS SUMMARY | ~2019-09-30 | XMS | Encounter Summary ---
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 Once a week Cholecalciferol (VITAMIN D3) 90064 units TABS Take 1 tablet by mouth [...] PROCEDURE 01/20/2016 Surgeon: Fani Mahajan MD; Location: [facility] TENDON RELEASE TONSILLECTOMY WISDOM TOOTH EXTRACTION Family History Problem Relation Age of Onset Other (see comment) Mother gallbladder disease Hypertension Father Other (see comment) Father arrhymthmia Breast cancer Sister Cervical cancer Maternal Grandmother Heart attack Maternal Aunt [place] Social History Social History Marital status: Single [...] and their vital signs recorded by my regulatory assistant today, a s found in this chart note. Electronically signed by: Emily Mittal DPM 12/06/2018 at 10:37 Note: Part of this report was transcribed using voice recognition software. Every effort wa s made to ensure accuracy. However, inadvertent computerized futures trader errors may be pre sent. CC: Erika [...] | Visit | | DO [address] | | | | | | [place] [address] | | | | | | [phone] | | | | | | | | +--------+ + + + + | 10/30/ | Office | Primary Care | Erika Ernst, | | | 2019 | Visit | | DO [address] [place] | | | | | | [place] [address] | | | | | | [phone] | | | | | | | [...] [place] | | | | | | [address] | | | | | | [phone] | | | | | | | | +--------+ + + + + | 02/09/ | Office | Neurology | Dhara, | | | 2019 | Visit | | [address] | | | | | | [address] [place], | | | | | | [place] [address] | | | | | | [phone] | | | | | | | [...]
--- OUTSIDE RECORDS SUMMARY | ~2019-09-30 | XMS | Encounter Summary ---
Demographics + + + | Address | [address] | | | [place] [address] | + + + | Home Phone [...] Team Providers + +------+ + | Care Coke Handling Supervisor Name | Role | Phone | [...] Description | +--------+--------+ + + + | 02/28/ | Refill | [place] [facility] | Erika Ernst, | Medication Refill; | | 2018 | | [facility] | [address] | Medication Refill | | | | MEDICAL CLINIC [address] | [place] [address] | | | | | [address] [place], | [phone] | | | | | [place] [address] | | | | | | [phone] | | | +--------+--------+ + + + [...] | | | | | [place] [address] | | | | | | [phone] | | | | | | | | +--------+ + + + + | 10/30/ | Office | Primary Care | Erika Ernst, | | | 2019 | Visit | | DO [address] [place] | | | | | | [place] [address] | | | | | | [phone] | | | | | | | [...] [place] | | | | | | [address] | | | | | | [phone] | | | | | | | | +--------+ + + + + | 02/09/ | Office | Neurology | Dhara, | | | 2020 | Visit | | [address] | | | | | | [address] [place], | | | | | | [place] [address] | | | | | | [phone] | | | | | | | | +--------+ + + + + documented as of this encounter Visit Diagnoses Not on filedocumented in this encounter"
--- OUTSIDE RECORDS SUMMARY | ~2019-09-30 | XMS | Encounter Summary ---
Demographics + + + | Address | [address] | | | [place] [address] | + + + | Home Phone [...] Team Providers + +------+ + | Care Mortuary Beautician Name | Role | Phone | + [...] | | | Right foot | Herbert Abad, | [address] | | | | | pain Status | [address] | [place] | | | | | post right | [address] | [place], [place] | | | | | foot surgery | [place] | [address] | | | | | Swelling | [place], [place] | Phone: | | | | | of foot | [address] | [phone] | | | | | joint, right | Phone: | Fax: | | | | | Procedures | [phone] | [phone] | | | | | MRI Foot | Fax: | | | | | | Right wo | [phone] | | | | | | Contrast | | | +--------+--------+ + + + + Reason for Visit +--------+ + | Reason | Comments | +--------+ + | Other | R Ankle pain onset about 2 months ago | +--------+ + Evaluate & Treat (Routine) + + [...] | | | | encounter | [place] [address] | [place], [place] | | | | | Procedures | Phone: | [address] | | | | | [place] | [phone] | Phone: | | | | | | Fax: | [phone] | | | | | | [phone] | Fax: | | | | | | | [phone] | + + + + + + + Encounter Details +--------+---------+ + + + | Date | Type | Department | Care Team | Description | +--------+---------+ + + + | 07/23/ | Office | [place] [facility] | Germaine Herbert | Right foot pain | | 2019 | Visit | [facility] | LISA Abad [address] | (Primary Dx); Status | | | | [address] [place] | [place], | post right foot | | | | [place], [place] | [place] [address] | surgery; Swelling of | | | | [address] | [phone] | foot joint, right | | | | [phone] | | | +--------+---------+ + + + [...] hand that is farther away from the [facility], reach forward in front of you [...] pads that you can purchase at most drugstores, a wet washcloth or towel that has [...] extra support to your arch. Developed by [employer]. Published by [employer]. Copyright 2014 [employer] and/or one of its subsidiaries. All rights [...] cancer Maternal Grandmother Heart attack Maternal Aunt [place] Hypertension Maternal Uncle Review of systems: Patient [...] pain, swelling over navicular. H/O foot surgery 2015 (excision accesory navicular ) COMPARISON STUDY: 03/14/2018. [...] Herbert Herron PA-C 07/23/2019 17:16 CC: E[place], No ref. provider found Note: Part of this report was transcribed using voice recognition software. Every effort wa s made to ensure accuracy. However, inadvertent computerized medical transcription errors may be pre sent. documented in [...] | | | | | [place] [address] | | | | | | [phone] | | | | | | | | +--------+ + + + + | 10/30/ | Office | Primary Care | Erika Ernst, | | | 2019 | Visit | | DO [address] [place] | | | | | | [place] [address] | | | | | | [phone] | | | | | | | [...] [place] | | | | | | [address] | | | | | | [phone] | | | | | | | | +--------+ + + + + | 02/09/ | Office | Neurology | Dhara, | | | 2019 | Visit | | [address] | | | | | | 4TH [facility], | | | | | | [place] [address] | | | | | | [phone] | | | | | | | [...] [facility] | | Jeffrey Gandhi MD, [facility], 09/19/19 describes | | | history of Kidner procedure performed [place] 2016. The findings on | | | [...] swelling, history of a sensory navicular excision 2015 | | | COMPARISON STUDY: Foot x-ray [...] + | Yoni Grullon Results In - 09/21/2019 8:06 AM PST [...] medial navicula. Note from Jeffrey Gandhi MD, [facility], 09/19/19 | | describes history of Kidner procedure performed [place] 2015. The findings on the current | [...] navicula. Note from Jeffrey Gandhi MD, [facility], 09/19/19 describes history of Kidner procedure performed [place]. The findings on the current study are [...]
--- OUTSIDE RECORDS SUMMARY | ~2019-09-30 | XMS | Encounter Summary ---
Demographics + + + | Address | [address] | | | [place] [address] | + + + | Home Phone [...] Team Providers + +------+ + | Care Thickener Operator Name | Role | Phone | [...] + + + + | 03/04/ | Telephone | [place] [facility] | Inocencio Noriega | Appointment Question | | 2019 | | [facility] | MD [address] | | | | | [address] [place] | [address] | | | | | [place] | [place] [address] | | | | | [address] | [phone] | | | | | [phone] | | | +--------+ + + + [...] | | | | | [place] [address] | | | | | | [phone] | | | | | | | | +--------+ + + + + | 10/30/ | Office | Primary Care | Erika Ernst, | | | 2019 | Visit | | DO [address] [place] | | | | | | [place] [address] | | | | | | [phone] | | | | | | | [...] [place] | | | | | | [address] | | | | | | [phone] | | | | | | | | +--------+ + + + + | 02/09/ | Office | Neurology | Dhara, | | | 2020 | Visit | | [address] | | | | | [address] [place], | | | | | | [place] [address] | | | | | | [phone] | | | | | | | | +--------+ + + + + documented as of this encounter Visit Diagnoses Not on filedocumented in this encounter"
--- OUTSIDE RECORDS SUMMARY | ~2019-09-30 | XMS | Encounter Summary ---
Demographics + + + | Address | [address] | | | [place] [address] | + + + | Home Phone [...] Team Providers + +------+ + | Care Regional Sales Representative Name | Role | Phone [...] | | | MEDICAL CLINIC [address] | [place] [address] | | | | | [address] [place], | [phone] | | | | | [place] [address] | | | | | | [phone] | | | +--------+ + + + [...] 2019 | Visit | | DO [address] | | | | | | [place] [address] | | | | | | [phone] | | | | | | | | +--------+ + + + + | 10/30/ | Office | Primary Care | Erika Ernst, | | | 2019 | Visit | | DO [address] [place] | | | | | | [place] [address] | | | | | | [phone] | | | | | | | [...] [place] | | | | | | [address] | | | | | | [phone] | | | | | | | | +--------+ + + + + | 02/09/ | Office | Neurology | Dhara, | | | 2019 | Visit | | [address] | | | | | | [address] [place], | | | | | | [place] [address] | | | | | | [phone] | | | | | | | [...] 15.7 | 0.0 - 17.0 % | [place] | | | | | [...] + + | [place] [facility] | [address] | [place] [address] | [phone] | | [facility] | | | | | [facility] | | | | + + + + + documented in this encounter Visit Diagnoses + + | Diagnosis | + + | Lymphocytosis - Primary Lymphocytosis (symptomatic) | + + documented in this encounter"
--- OUTSIDE RECORDS SUMMARY | ~2019-09-30 | XMS | Encounter Summary ---
Demographics + + + | Address | [address] | | | [place] [address] | + + + | Home Phone [...] Team Providers + +------+ + | Care Mid Level Business Analyst Name | Role | Phone | [...] [address] | [place] [address] | | | | | [place], [place] | [phone] | | | | | [address] | | | | | | [phone] | | | +--------+ + + + [...] | | | | | [place] [address] | | | | | | [phone] | | | | | | | | +--------+ + + + + | 10/30/ | Office | Primary Care | Erika Ernst, | | | 2019 | Visit | | DO [address] [place] | | | | | | [place] [address] | | | | | | [phone] | | | | | | | [...] [place] | | | | | | [address] | | | | | | [phone] | | | | | | | | +--------+ + + + + | 02/09/ | Office | Neurology | Dhara, | | | 2019 | Visit | | Cody, TUBE TELLER [address] | | | | | | [address]TH [facility], | | | | | | [place] [address] | | | | | | [phone] | | | | | | | [...]
--- OUTSIDE RECORDS SUMMARY | ~2019-09-30 | XMS | Encounter Summary ---
Demographics + + + | Address | [address] | | | [place] [address] | + + + | Home Phone [...] Team Providers + +------+ + | Care Makeup Editor Name | Role | Phone | [...] | | | | s (de | [place], [place] | [place] [address] | | | | | quervain) | [address] | Phone: | | | | | Pain in | Phone: | [phone] | | | | | right wrist | [phone] | Fax: | | | | | Procedures | Fax: | [phone] | | | | | OT TREAT | [phone] | | +--------+--------+ + + + + [...] | | [address] [place] | [place] [address] | (Primary Dx); Right | | | | [place], [place] | [phone] | wrist pain | | | | [address] | | | | | | [phone] | Nakia Koo OT | | +--------+ [...] | 19 | 9 | | BRACE [id number]) | | | | | | | [...] Koo, OT - 11/06/2018 4:42 PM PST [facility] [address] [place] [address] Occupational Therapy Daily Treatment Note Date: 11/06/2018 [...] wrist but continues to have right wrist, cotton candy maker and pinch weakness and significant pain (3 [...] in 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, and cotton candy maker and pinch weakness in the right hand [...] [address] | | | | | | [phone] | | | | | | | | +--------+ + + + + | 10/30/ | Office | Primary Care | Erika Ernst, | | | 2019 | Visit | | DO [address] | | | | | | [place] [address] | | | | | | [phone] | | | | | | | [...] [place] | | | | | | [address] | | | | | | [phone] | | | | | | | | +--------+ + + + + | 02/09/ | Office | Neurology | Dhara, | | | 2019 | Visit | | DWAINE Ross [address] [place], | | | | | | [place] [address] | | | | | | [phone] | | | | | | | | +--------+ + + + + documented as of this encounter Visit Diagnoses + + | Diagnosis | + + | Radial styloid tenosynovitis - Primary | + + | Right wrist pain Pain in joint, forearm | + + documented in this encounter
--- OUTSIDE RECORDS SUMMARY | ~2019-09-30 | XMS | Encounter Summary ---
Demographics + + + | Address | [address] | | | [place] [address] | + + + | Home Phone [...] Team Providers + +------+ + | Care Sound Engineer Audio Control Name | Role | Phone | + +------+ + | Erika Ernst DO | PCP | | + +------+ + Encounter Details +--------+ + + + + | Date | Type | Department | Care Team | Description | +--------+ + + + + | 08/29/ | Abstract | [place] [facility] | Uma, | | | 2016 | | [facility] [address] | Hilary Henry RN | | | | | [place] | | | | | | [place] | | | | | | [address] | | | | | | [phone] | | | +--------+ + + + [...] | | | | | [place] [address] | | | | | | [phone] | | | | | | | | +--------+ + + + + | 10/30/ | Office | Primary Care | Erika Ernst, | | | 2019 | Visit | | DO [address] | | | | | | [place] [address] | | | | | | [phone] | | | | | | | [...] [place] | | | | | | [address] | | | | | | [phone] | | | | | | | | +--------+ + + + + | 02/09/ | Office | Neurology | Dhara, | | | 2020 | Visit | | [address]WA[address] | | | | | [address] [place], | | | | | | [place] [address] | | | | | | [phone] | | | | | | | | +--------+ + + + + documented as of this encounter Visit Diagnoses Not on filedocumented in this encounter"
--- OUTSIDE RECORDS SUMMARY | ~2019-09-30 | XMS | Encounter Summary ---
Demographics + + + | Address | [address] | | | [place] [address] | + + + | Home Phone [...] Providers + +------+ + | Care Manager Social Work Name | Role | Phone | + +------+ + | Erika Ernst DO | PCP | | + +------+ + Encounter Details +--------+ + + + + | Date | Type | Department | Care Team | Description | +--------+ + + + + | 05/03/ | Transcribed | [place] [facility] | Marvel, | Asthma, unspecified | | 2019 | Orders | [facility] | [address] | asthma severity, | | | | THERAPY [address] | [place] | unspecified whether | | | | DR [place], [place] | [place] [address] | complicated, | | | | [address] | | unspecified whether | | | | [phone] | (Fax) | persistent (Primary | | | | [...] | | | | | [place] [address] | | | | | | [phone] | | | | | | | | +--------+ + + + + | 10/30/ | Office | Primary Care | Erika Ernst, | | | 2019 | Visit | | DO [address] | | | | | | [place] [address] | | | | | | [phone] | | | | | | | [...] [place] | | | | | | [address] | | | | | | [phone] | | | | | | | | +--------+ + + + + | 02/09/ | Office | Neurology | Dhara, | | | 2019 | Visit | | Karyanne, BRAIDING MACHINE OPERATOR [address] | | | | | | [address] [facility] [facility] [place], | | | | | | [place] [address] | | | | | | [phone] | | | | | | | [...]
--- OUTSIDE RECORDS SUMMARY | ~2019-09-30 | XMS | Encounter Summary ---
Demographics + + + | Address | [address] | | | [place] [address] | + + + | Home Phone [...] Providers + +------+ + | Care Box Worker Name | Role | Phone | [...] Medication Follow-up | | 2019 | | [facility] | DO [address] | (Trazadone) | | | | [facility] [address] | [place] [address] | | | | | [address] [facility], | [phone] | | | | | [place] [address] | | | | | | [phone] | | | +--------+ + + + [...] | Office | Primary Care | Erika Ernst | | | 2018 | Visit | | DO [address] | | | | | | [place] [address] | | | | | | [phone] | | | | | | | | +--------+ + + + + | 10/30/ | Office | Primary Care | Erika Ernst, | | | 2019 | Visit | | DO [address] | | | | | | [place] [address] | | | | | | [phone] | | | | | | | [...] [place] | | | | | | [address] | | | | | | [phone] | | | | | | | | +--------+ + + + + | 02/09/ | Office | Neurology | Dhara, | | | 2020 | Visit | | [address]WA[address] | | | [address] [place], | | | | | | [place] [address] | | | | | | [phone] | | | | | | | | +--------+ + + + + documented as of this encounter Visit Diagnoses Not on filedocumented in this encounter"
--- OUTSIDE RECORDS SUMMARY | ~2019-09-30 | XMS | Encounter Summary ---
Demographics + + + | Address | [address] | | | [place] [address] | + + + | Home Phone [...] Team Providers + +------+ + | Care Queen Producer Name | Role | Phone | [...] | Otolaryngolog | Diagnoses | Klever, | Liam, | | | Services | y | Chronic | Erika A, DO | Denis Quevedo, | | | Required | | pain of both | [address] | [address] | | | | | ears | [place], | [address] [place] | | | | | [place] | [place] [address] | [place], [place] | | | | | l allergies | Phone: | [phone] Phone: | | | | | Chronic | [phone] | [phone] | | | | | congestion | Fax: | Fax: | | | | | of paranasal | [phone] | [phone] | | | | | sinus | | | +--------+ + + + + + Reason for Visit +---------+ + | Reason | Comments | +---------+ + | Otalgia | | +---------+ + Encounter Details +--------+---------+ + + + | Date | Type | Department | Care Team | Description | +--------+---------+ + + + | 10/09/ | Office | [place] [facility] | Erika Ernst, | Chronic pain of both | | 2019 | Visit | [facility] | DO [address] | ears (Primary Dx); | | | | [facility] [address] | [place] [address] | Environmental | | | | [address] [place], | [phone] | allergies; Chronic | | | | [place] [address] | | congestion of | | | | [phone] | | paranasal sinus; | | | | | | Insomnia due to | | | | | | other mental | | | | | | disorder; Natalia | | | | | | vaginitis | +--------+---------+ + + + Social History [...] + | Blood Pressure | 140/90 | 10/09/2018 4:27 PM | | | | | PST | | + + + + + | Pulse | 102 | 10/09/2018 4:27 PM | | | | | PST | | + + + + + | Temperature | - | - | | + + + + + | Respiratory Rate | 16 | 10/09/2018 4:27 PM | | | | | PST | | + + + + + | Oxygen Saturation | 99% | 10/09/2018 4:27 PM | | | | | PST | | + + + + + | Inhaled Oxygen | - | - | | | Concentration | | | | + + + + + | Weight | 154.2 kg (340 lb) | 10/09/2018 4:27 PM | | | | | PST | | + + + + + | Height | 177.8 cm (5' 10") | 10/09/2018 4:27 PM | | | | | PST | | + + + + + | Body Mass Index | 48.78 | 10/09/2018 4:27 PM | | | | | PST | | + + + + + documented in this encounter Progress Notes Erika Ernst DO - 10/09/2018 4:30 PM PSTFormatting of this note might be different fro m the original. Subjective: Patient ID: Andrea Suh is a 28 y.o. female. Here with several issues. She had recent ear infection and still has pain in both ears. No ST or fever. No ear drng. Chronic sinus congestion in frontal sinus areas but no pain with p alpitation of the area. No nasal drng. No TMJ pain. States it is deep in the ears. She does have appointment with ENT tomorrow for allergies. We will add the chronic ear issue and road crossing guard montrell sinus to the referral for Dr Wheeler evaluation tomorrow. New issue is she has vaginal yeast infection from the antibiotics. She has itch and some redness, no drng. Has not used a ny Tx yet. She also has new issue of increase insomnia with the recent increase in stress sh e has been having. She is working with mental health provider. She has tried melatonin but f eels that made more night gonzalez. Discussed trazodone and trial since this is old antidepress ant with SE of sleepiness is a good choice for sleep aid for pt. Review of Systems Constitutional: Negative. HENT: Positive for congestion and ear pain. Eyes: Negative. Respiratory: Negative. Cardiovascular: Negative. Genitourinary: Vaginal yeast as above Psychiatric/Behavioral: Positive for sleep disturbance. Objective: BP 140/90 | Pulse 102 | Resp 16 | Ht 1.778 m (5' 10") | Wt (!) 154.2 kg (340 lb) | LMP (LMP Unknown) | SpO2 99% | ? No | BMI 48.78 kg/m Physical Exam Constitutional: She is oriented to person, place, and time. She appears well-developed and well-nourished. No distress. HENT: Head: Normocephalic and atraumatic. Right Ear: External ear normal. Left Ear: External ear normal. Mouth/Throat: Oropharynx is clear and moist. No oropharyngeal exudate. Bilateral TM's clear no infection Eyes: Pupils are equal, round, and reactive [...] and time. No cranial nerve defici t. Psychiatric: She has a normal mood and affect. Her behavior is normal. Judgment and thought content normal. Assessment: 1. Chronic pain of both ears ENT, External - AMB Referral 2. Environmental allergies ENT, External - AMB Referral 3. Chronic congestion of paranasal sinus ENT, External - AMB Referral 4. Insomnia due to other mental disorder 5. Natalia vaginitis Plan: Referral to Dr Wheeler for chronic ear and sinus pain. Trial trazodone for sleep. Diflucan for 3 days for the yeast infection. She has appointment next week and we will FU. documented in this en counter Plan of Treatment +--------+ + + + + | Date | Type | Specialty | Care Team | Description | +--------+ + + + + | 10/01/ | Office | Primary Care | Erika Ernst, | | | 2018 | Visit | | DO [address] | | | | | | [place] [address] | | | | | | [phone] | | | | | | | | +--------+ + + + + | 10/30/ | Office | Primary Care | Erika Ernst, | | | 2019 | Visit | | DO [address] | | | | | | [place] [address] | | | | | | [phone] | | | | | | | [...] [place] | | | | | | [address] | | | | | | [phone] | | | | | | | | +--------+ + + + + | 02/09/ | Office | Neurology | Dhara, | | | 2019 | Visit | | [address]WA[address] | | | | [address] [place], | | | | | | [place] [address] | | | | | | [phone] | | | | | | | | +--------+ + + + + + + +--------+ + + | Name | Type | Priori | Associated Diagnoses | Order Schedule | | | | ty | | | + + +--------+ + + | ENT, External - AMB | Outpatient | Routin | Chronic pain of | Ordered: 10/09/2018 | | Referral | Referral | e | both ears | | | | | | Environmental | | | | | | allergies Chronic | | | | | | congestion of | | | | | | paranasal sinus | | + + +--------+ + + documented as of this encounter Visit Diagnoses + + | Diagnosis | + + | Chronic pain of both ears - Primary | + + | Environmental allergies Allergic rhinitis, cause unspecified | + + | Chronic congestion of paranasal sinus | + + | Insomnia due to other mental disorder | + + | Natalia vaginitis Candidiasis of vulva and vagina | + + documented in this encounter
--- OUTSIDE RECORDS SUMMARY | ~2019-09-30 | XMS | Encounter Summary ---
Demographics + + + | Address | [address] | | | [place] [address] | + + + | Home Phone [...] Providers + +------+ + | Care Manager Payroll Name | Role | Phone | + [...] | [facility] | [place] [address] | | | | | [address] [place], | [phone] | | | | | [place] [address] | | | | | | [phone] | | | +--------+ + + + [...] | Office | Primary Care | Erkia Ernts, | | | 2018 | Visit | | DO [address] | | | | | | [place], [place] [address] | | | | | | [phone] | | | | | | | | +--------+ + + + + | 10/30/ | Office | Primary Care | Erika Ernst, | | | 2019 | Visit | | DO [address] [place] [address] | | | | | | [place] [address] | | | | | | [phone] | | | | | | | [...] [place] | | | | | | [address] | | | | | | [phone] | | | | | | | | +--------+ + + + + | 02/09/ | Office | Neurology | Dhara, | | | 2019 | Visit | | [address] | | | | | | [address] [place], | | | | | | [place] [address] | | | | | | [phone] | | | | | | | | +--------+ + + + + documented as of this encounter Visit Diagnoses Not on filedocumented in this encounter"
--- OUTSIDE RECORDS SUMMARY | ~2019-09-30 | XMS | Encounter Summary ---
Demographics + + + | Address | [address] | | | [place] [address] | + + + | Home Phone [...] Providers + +------+ + | Care Rail Operations Controller Name | Role | Phone | + +------+ + | Erika Ernst DO | PCP | | + +------+ + Encounter Details +--------+ + + + + | Date | Type | Department | Care Team | Description | +--------+ + + + + | 12/06/ | [facility] | [place] [facility] | Daxa, Emily E, DPM | Sprain of deltoid | | 2019 | Encounter | HOSPITAL | [address] [place] | ligament of left | | | | ORTHOPAEDICS XRAY | [place] | ankle, sequela | | | | [address] [place] | [address] | | | | | [place], [place] | | | | | | [address] | | | | | | [phone] | | | +--------+ + + + [...] | 11/26/19 | | | (VITAMIN D3) [id number] | mouth Once a week | tablet [...] | | | | | [place] [address] | | | | | | [phone] | | | | | | | | +--------+ + + + + | 10/30/ | Office | Primary Care | Erika Ernst, | | | 2019 | Visit | | DO [address] | | | | | | [place] [address] | | | | | | [phone] | | | | | | | [...] [place] | | | | | | [address] | | | | | | [phone] | | | | | | | | +--------+ + + + + | 02/09/ | Office | Neurology | Dhara, | | | 2019 | Visit | | [address] | | | | | [address] [place], | | | | | | [place] [address] | | | | | | [phone] | | | | | | | [...] IMAGING | | COMPARISON STUDY: None FINDINGS: [place] angle 46 degrees. | | | Talocalcaneal [...] LEFT 3 + | | VWHISTORY:pes planusCOMPARISON STUDY:NoneFINDINGS:[place] angle 46 degrees.Talocalcaneal | | angle 25 [...] | |None | | | |FINDINGS: | |[place] angle 46 degrees. | | | |Talocalcaneal [...]
--- OUTSIDE RECORDS SUMMARY | ~2019-09-30 | XMS | Encounter Summary ---
Demographics + + + | Address | [address] | | | [place] [address] | + + + | Home Phone [...] Team Providers + +------+ + | Care Grated Cheese Maker Name | Role | Phone | + +------+ + | Erika Ernst DO | PCP | | + +------+ + Reason for Visit + + + | Reason | Comments | + + + | Injections | information re: mark injection | + + + | Injections | | + + + Encounter Details +--------+ + + + + | Date | Type | Department | Care Team | Description | +--------+ + + + + | 08/01/ | Telephone | [place] [facility] | Erika Ernst, | Injections | | 2019 | | [facility] | [address] | (information re: | | | | [facility] [address] | [place] [address] | shingles injection); | | | | [address]TH [facility], | [phone] | Injections | | | | [place] [address] | | | | | | [phone] | | | +--------+ + + + [...] | | | | | [place] [address] | | | | | | [phone] | | | | | | | | +--------+ + + + + | 10/30/ | Office | Primary Care | Erika Ernst, | | | 2019 | Visit | | DO [address] | | | | | | [place] [address] | | | | | | [phone] | | | | | | | [...] [place] | | | | | | [address] | | | | | | [phone] | | | | | | | | +--------+ + + + + | 02/09/ | Office | Neurology | Dhara, | | | 2019 | Visit | | [address] | | | | [address] [place], | | | | | | [place] [address] | | | | | | [phone] | | | | | | | | +--------+ + + + + documented as of this encounter Visit Diagnoses Not on filedocumented in this encounter"
--- OUTSIDE RECORDS SUMMARY | ~2019-09-30 | XMS | Encounter Summary ---
Demographics + + + | Address | [address] | | | [place] [address] | + + + | Home Phone [...] Providers + +------+ + | Care User Interface Artist Name | Role | Phone | [...] | [address] | | | | | [address] | | | | | | [phone] | | | +--------+ + + + [...] | Visit | | DO [address] | | | | | | [place] [address] | | | | | | [phone] | | | | | | | | +--------+ + + + + | 10/30/ | Office | Primary Care | Erika Ernst, | | | 2019 | Visit | | DO [address] [facility] [place] | | | | | | [place] [address] | | | | | | [phone] | | | | | | | [...] [place] | | | | | | [address] | | | | | | [phone] | | | | | | | | +--------+ + + + + | 02/09/ | Office | Neurology | Dhara, | | | 2019 | Visit | | [address] | | | | [address] [place], | | | | | | [place] [address] | | | | | | [phone] | | | | | | | | +--------+ + + + + documented as of this encounter Visit Diagnoses Not on filedocumented in this encounter"
--- OUTSIDE RECORDS SUMMARY | ~2019-09-30 | XMS | Encounter Summary ---
Demographics + + + | Address | [address] | | | [place] [address] | + + + | Home Phone [...] Providers + +------+ + | Care Heel Breaster Name | Role | Phone | + [...] [facility] | DO [address] [place] | | | | | [facility]ICAL [facility] [address] | [place] [address] | | | | | [address] [place], | [phone] | | | | | [place] [address] | | | | | | [phone] | | | +--------+ + + + [...] | | | | | [place] [address] | | | | | | [phone] | | | | | | | | +--------+ + + + + | 10/30/ | Office | Primary Care | Erika Ernst, | | | 2019 | Visit | | DO [address] | | | | | | [place] [address] | | | | | | [phone] | | | | | | | [...] [place] | | | | | | [address] | | | | | | [phone] | | | | | | | | +--------+ + + + + | 02/09/ | Office | Neurology | Dhara, | | | 2019 | Visit | | [address] | | | | | [address] [place], | | | | | | [place] [address] | | | | | | [phone] | | | | | | | | +--------+ + + + + documented as of this encounter Visit Diagnoses Not on filedocumented in this encounter"
--- OUTSIDE RECORDS SUMMARY | ~2019-09-30 | XMS | Encounter Summary ---
Demographics + + + | Address | [address] | | | [place] [address] | + + + | Home Phone [...] Team Providers + +------+ + | Care Ash Kier Boiler Name | Role | Phone | + [...] [address] [place] | [place] [address] | | | | | [place], [place] | [phone] | | | | | [address] | | | | | | [phone] | | | +--------+ + + + [...] | | | | | [place] [address] | | | | | | [phone] | | | | | | | | +--------+ + + + + | 10/30/ | Office | Primary Care | Erika Ernst, | | | 2019 | Visit | | DO [address] | | | | | | [place] [address] | | | | | | [phone] | | | | | | | [...] [place] | | | | | | [address] | | | | | | [phone] | | | | | | | | +--------+ + + + + | 02/09/ | Office | Neurology | Dhara, | | | 2019 | Visit | | [address]WA[address] | | | | [address] [place], | | | | | | [place] [address] | | | | | | [phone] | | | | | | | [...]
--- OUTSIDE RECORDS SUMMARY | ~2019-09-30 | XMS | Encounter Summary ---
Demographics + + + | Address | [address] | | | [place] [address] | + + + | Home Phone [...] Team Providers + +------+ + | Care Transit Bus Operator Name | Role | Phone | [...] | | | 2018 | Support | [facility] | DO [address] | | | | | MEDICAL [facility] [address] | [place] [address] | | | | | [address] [place], | [phone] | | | | | [place] [address] | | | | | | [phone] | | | +--------+ + + + [...] PM PSTPatient states she was unable to cook pickled meat her prazosin as it was the same [...] | | | | | [place] [address] | | | | | | [phone] | | | | | | | | +--------+ + + + + | 10/30/ | Office | Primary Care | Erika rEnst, | | | 2019 | Visit | | DO [address] [place] | | | | | | [place] [address] | | | | | | [phone] | | | | | | | | +--------+ + + + + | 11/07/ | Appointment | Nutrition | Janel Webster | | | 2019 | | | [place] | | +--------+ + + + + | 02/27/ | Office | Otolaryngology | Anthony Alvarado MD | | | 2019 | Visit | | [address] | | | | | | [place], [place] | | | | | | [address] | | | | | | [phone] | | | | | | | | +--------+ + + + + | 02/09/ | Office | Neurology | Dhara, | | | 2019 | Visit | | [address] | | | | | [address] [place], | | | | | | [place] [address] | | | | | | [phone] | | | | | | | | +--------+ + + + + documented as of this encounter Visit Diagnoses Not on filedocumented in this encounter"
--- OUTSIDE RECORDS SUMMARY | ~2019-09-30 | XMS | Encounter Summary ---
Demographics + + + | Address | [address] | | | [place] [address] | + + + | Home Phone [...] Team Providers + +------+ + | Care Historical Archeologist Name | Role | Phone | + [...] Results, Imaging | | 2019 | | [facility] | DO Rad[address] | | | | | [address] | | | | | [address] [place], | [place], [place] | | | | | [place] [address] | [address] | | | | | [phone] | [phone] | | | | | | | [...] | | | | | [place] [address] | | | | | | [phone] | | | | | | | | +--------+ + + + + | 10/30/ | Office | Primary Care | Erika Ernst, | | | 2019 | Visit | | DO [address] | | | | | | [place] [address] | | | | | | [phone] | | | | | | | [...] [place] | | | | | | [address] | | | | | | [phone] | | | | | | | | +--------+ + + + + | 02/09/ | Office | Neurology | Dhara, | | | 2020 | Visit | | [address] | | | | [address] [place], | | | | | | [place] [address] | | | | | | [phone] | | | | | | | | +--------+ + + + + documented as of this encounter Visit Diagnoses Not on filedocumented in this encounter"
--- OUTSIDE RECORDS SUMMARY | ~2019-09-30 | XMS | Encounter Summary ---
Demographics + + + | Address | [address] | | | [place] [address] | + + + | Home Phone [...] Team Providers + +------+ + | Care Hydraulic Barker Operator Name | Role | Phone | + +------+ + | Erika Ernst DO | PCP | | + +------+ + Reason for Visit + + + | Reason | Comments | + + + | Follow-up | EP NO POLINA WYNNE R Wrist | + + + Encounter Details +--------+ + + + + | Date | Type | Department | Care Team | Description | +--------+ + + + + | 07/18/ | Clinical | [place] [facility] | Inocencio Noriega | Post-op pain | | 2019 | Support | [facility] | MD [address] | (Primary Dx) | | | | [address] [place] | [address] [place] | | | | | [place] | [place] [address] | | | | | [address] | [phone] | | | | | [phone] | | | +--------+ + + + [...] + + + | Blood Pressure | 134/86 | 07/18/2019 3:00 PM | | | | | PDT | | + + + + + | Pulse | 85 | 07/18/2019 3:00 PM | | | | | PDT | | + + + + + | Temperature | 36.6 C (97.8 F) | 07/18/2019 3:00 PM | | | | | PDT | | + + + + + | Respiratory Rate | 16 | 07/18/2019 3:00 PM | | | | | PDT | | + + + + + | Oxygen Saturation | 99% | 07/18/2019 3:00 PM | | | | | PDT [...] + documented in this encounter Progress Notes Jessika Hobbs RN - 07/18/2019 3:00 PM PDTPatient presents to clinic today for right w rist pain follow-up. Patient underwent right ECU tendon repair on 03/20/19. Dr. Noriega encouraged patient to implement ergonomic changes and wrist strap use into workpl nasima, as advised by her occupational therapist. Patient was advised to discontinue use of tr amadol, and switch to Aleve for pain relief. Patient is scheduled for an EMG appointment on 08/17/19, and a follow-up with Dr. Noriega on 08/22/19 to discuss results. Awaiting DALLIN consult notes for further evaluation. Patient states thanks and understanding to recommendations. Jessika Hobbs RN documented in thi s encounter Plan of Treatment +--------+ + + + + | Date | Type | Specialty | Care Team | Description | +--------+ + + + + | 10/01/ | Office | Primary Care | Erika Ernst, | | | 2018 | Visit | | DO [address] [place] | | | | | | [place] [address] | | | | | | [phone] | | | | | | | | +--------+ + + + + | 10/30/ | Office | Primary Care | Erika Ernst, | | | 2019 | Visit | | DO [address] [place] | | | | | | [place] [address] | | | | | | [phone] | | | | | | | [...] [place] | | | | | | [address] | | | | | | [phone] | | | | | | | | +--------+ + + + + | 02/09/ | Office | Neurology | Dhara, | | | 2019 | Visit | | [address] | | | | [address] [place], | | | | | | [place] [address] | | | | | | [phone] | | | | | | | | +--------+ + + + + documented as of this encounter Visit Diagnoses + + | Diagnosis | + + | Post-op pain - Primary Other acute postoperative pain | + + documented in this encounter"
--- OUTSIDE RECORDS SUMMARY | ~2019-09-30 | XMS | Encounter Summary ---
Demographics + + + | Address | [address] | | | [place] [address] | + + + | Home Phone [...] Team Providers + +------+ + | Care Apprentice Painter Neckties Name | Role | Phone | + [...] | | | | Spotting | [place] [address] | [place], [place] | | | | | between | Phone: | [address] | | | | | menses | [phone] | Phone: | | | | | | Fax: | [phone] | | | | | | [phone] | Fax: | | | | | | | [phone] | +--------+ + + + + + Reason for Visit + + + | Reason | Comments | + + + | Follow-up | Blood pressure | + + + Encounter Details +--------+---------+ + + + | Date | Type | Department | Care Team | Description | +--------+---------+ + + + | 12/13/ | Office | [place] [facility] | Erika Ernst, | Essential | | 2019 | Visit | [facility] | DO [address] | hypertension | | | | [facility] | [place] [address] | (Primary Dx); Heart | | | | [address] [place], | [phone] | palpitations; | | | | [place] [address] | | Anxiety; Painful | | | | [phone] | | menstrual periods; | | | [...] would like a second opinion referral to [facility] for her menstrual issues, painful with mid cycle break through. She has been seeing [facility] in [facility] and she wants to put in a IUD and pt does not agree with this plan. Will do referral to our [facility] Women's clinic. She just finis hed [...] Anxiety 4. Painful menstrual periods * [place] [facility] Referral 5. Spotting between menses * [place] [facility] OB-DINING ROOM MAID - AMB Referral 6. Natalia vaginitis Plan: She will continue to monitor HTN and HR at home. 48 hour Holter monitor ordered. Increase B uspar to 30 mg BID . Referral to [facility] Women's clinic Diflucan daily x 3 [...] | | | | | [place] [address] | | | | | | [phone] | | | | | | | | +--------+ + + + + | 10/30/ | Office | Primary Care | Erika Ernst, | | | 2019 | Visit | | DO [address] [place] | | | | | | [place] [address] | | | | | | [phone] | | | | | | | [...] [place] | | | | | | [address] | | | | | | [phone] | | | | | | | | +--------+ + + + + | 02/09/ | Office | Neurology | Dhara, | | | 2019 | Visit | | [address] | | | | | | [address] [place], | | | | | | [place] [address] | | | | | | [phone] | | | | | | | | +--------+ + + + + + + +--------+ + + | Name | Type | Priori | Associated Diagnoses | Order Schedule | | | | ty | | | + + +--------+ + + | * [place] [facility] | Outpatient | Routin | Painful menstrual | Ordered: 12/13/2018 | | [facility] OB-DINING ROOM MAID - AMB | Referral | e | [...]
--- OUTSIDE RECORDS SUMMARY | ~2019-09-30 | XMS | Encounter Summary ---
Demographics + + + | Address | [address] | | | [place] [address] | + + + | Home Phone [...] Providers + +------+ + | Care General Partner Name | Role | Phone | + [...] symptoms | | 2019 | Visit | [facility] | MD Caryn [address] | (Primary Dx) | | | | [facility] [address] | [place], [place] | | | | | [address] [facility], | [address] | | | | | [place] [address] | [phone] | | | | | [phone] | | | +--------+---------+ + + + [...] | | | | | [place] [address] | | | | | | [phone] | | | | | | | | +--------+ + + + + | 10/30/ | Office | Primary Care | Erika Ernst, | | | 2019 | Visit | | DO [address] [place] | | | | | | [place] [address] | | | | | | [phone] | | | | | | | [...] [place] | | | | | | [address] | | | | | | [phone] | | | | | | | | +--------+ + + + + | 02/09/ | Office | Neurology | Dhara, | | | 2019 | Visit | | [facility] [address] | | | | | | [address]TH [facility], | | | | | | [place] [address] | | | | | | [phone] | | | | | | | | +--------+ + + + + documented as of this encounter Visit Diagnoses + + | Diagnosis | + + | Flu-like symptoms - Primary Influenza with other respiratory manifestations | + + documented in this encounter"
--- OUTSIDE RECORDS SUMMARY | ~2019-09-30 | XMS | Encounter Summary ---
Demographics + + + | Address | [address] | | | [place] [address] | + + + | Home Phone [...] Team Providers + +------+ + | Care Washer Off Name | Role | Phone | + +------+ + PCP | Unavailable | + +------+ + Encounter Details +--------+ + + + + | Date | Type | Department | Care Team | Description | +--------+ + + + + | 02/13/ | [facility] | Anthony Alvarado MD | | | 2017 | Encounter | [facility] [address] | [address] | | | | | [place] | [place], [place] | | | | | [place] | [address] | | | | | [address] | [phone] | | | | | [phone] | | | +--------+ + + + [...] | | | | | [place] [address] | | | | | | [phone] | | | | | | | | +--------+ + + + + | 10/30/ | Office | Primary Care | Erika Ernst, | | | 2019 | Visit | | DO [address] [place] | | | | | | [place] [address] | | | | | | [phone] | | | | | | | [...] [place] | | | | | | [address] | | | | | | [phone] | | | | | | | | +--------+ + + + + | 02/09/ | Office | Neurology | Dhara, | | | 2019 | Visit | | [address] | | | | | | [address] [place], | | | | | | [place] [address] | | | | | | [phone] | | | | | | | | +--------+ + + + + documented as of this encounter Visit Diagnoses Not on filedocumented in this encounter"
--- OUTSIDE RECORDS SUMMARY | ~2019-09-30 | XMS | Encounter Summary ---
Demographics + + + | Address | [address] | | | [place] [address] | + + + | Home Phone [...] Providers + +------+ + | Care Medical Radiation Dosimetrist Name | Role | Phone | + [...] | | | PT TREAT | [place] [address] | [place] [address] | | | | | | Phone: | Phone: | | | | | | [phone] | [phone] | | | | | | Fax: | Fax: | | | | | | [phone] | [phone] | +--------+--------+ + + + + Encounter [...] [address] [place] | [place] [address] | Sprain of | | | | [place], [place] | [phone] | calcaneofibular | | | | [address] | | ligament of left | | | | [phone] | Julia Peña, | ankle, subsequent | | | | | ANALYTICAL SCIENTIST | encounter; History | | | | [...] | 11/26/19 | | | (VITAMIN D3) 45605 | mouth Once a week | tablet [...] 1:10 PM PDTICD 10 codes updated per home care nurse request see below: Coding has been updated for this PT series ([id number]) based on the documentation on the plan of care. Please code visit diagnoses as follows: Primary: M25.561 Pain in right knee Secondary: S93.402D Sprain of unspecified ligament of left ankle, subsequent encounter E66.9 Obesity, unspecified Z91.81 History of falling Electronically signed by: Julia Fisher PT, 01/16/2019 13:10 Julia Banks, ANALYTICAL SCIENTIST - 01/16/2019 8:53 AM PDT . [facility] PT [address] [place] [address] Physical Therapy Daily Treatment Note Date: 01/16/2019 [...] Seated marching 1minx2. LAQ Ongoing: Wall sits [id number] holds, Bridging 3 x 10 reps, Side [...] | | | | | [place] [address] | | | | | | [phone] | | | | | | | | +--------+ + + + + | 10/30/ | Office | Primary Care | Erika Ernst, | | | 2019 | Visit | | DO [address] [facility] | | | | | | [place] [address] | | | | | | [phone] | | | | | | | [...] [place] | | | | | | [address] | | | | | | [phone] | | | | | | | | +--------+ + + + + | 02/09/ | Office | Neurology | Dhara, | | | 2019 | Visit | | [address] | | | | | | [address] [facility] [place], | | | | | | [place] [address] | | | | | | [phone] | | | | | | | [...]
--- OUTSIDE RECORDS SUMMARY | ~2019-09-30 | XMS | Encounter Summary ---
Demographics + + + | Address | [address] | | | [place] [address] | + + + | Home Phone [...] Team Providers + +------+ + | Care Armature Balancer Name | Role | Phone | + [...] | | | to excess | [place] [address] | [place] | | | | | calories | Phone: | [phone] | | | | | without | [phone] | Phone: | | | | | serious | Fax: | [phone] | | | | | comorbidity | [phone] | Fax: | | | | | with body | | [phone] | | | | | mass index [...] | | | | | | | [place] [facility] | | | | | | [...] + | 05/14/ | Hospital | [place] [facility] | Erika Ernst, | Essential | | 2019 | Encounter | HOSPITAL NUTRITION | DO [address] | hypertension; Morbid | | | | SERVICES [address] | [place] [address] | obesity ([facility]); Body | | | | [place] | [phone] | mass index | | | | [address] | | 50.0-59.9, adult | | | | [phone] | Janel Webster, | ([facility]); Dietary | | | | | RD [...] | 04/12/20 | | | (VITAMIN D3) 06133 | mouth Once a week | tablet [...] on the go and travels frequently between [place] and [facility] so she often has to eat dinner [...] | | | | | [place] [address] | | | | | | [phone] | | | | | | | | +--------+ + + + + | 10/30/ | Office | Primary Care | Erika Ernst, | | | 2019 | Visit | | DO [address] [place] | | | | | | [place] [address] | | | | | | [phone] | | | | | | | [...] [place] | | | | | | [address] | | | | | | [phone] | | | | | | | | +--------+ + + + + | 02/09/ | Office | Neurology | Dhara, | | | 2019 | Visit | | [address] | | | | | | [address] [place], | | | | | | [place] [address] | | | | | | [phone] | | | | | | | [...] | | | | 59.9 in adult ([facility]) | | | | | | Essential | | | | | | hypertension | | + + +--------+ + + documented as of this encounter Visit Diagnoses + + | Diagnosis | + + | Essential hypertension Unspecified essential hypertension | + + | Morbid obesity ([facility]) Morbid obesity | + + | Body mass index 50.0-59.9, adult (HCC) Body Mass Index 50.0-59.9, adult | + + | Dietary counseling and surveillance Dietary surveillance and counseling | + + documented in this encounter"
--- OUTSIDE RECORDS SUMMARY | ~2019-09-30 | XMS | Encounter Summary ---
Demographics + + + | Address | [address] | | | [place] [address] | + + + | Home Phone [...] Providers + +------+ + | Care Caregivers Homecare Name | Role | Phone | + [...] | | | | s (de | [place], [place] | [place] [address] | | | | | quervain) | [address] | Phone: | | | | | Pain in | Phone: | [phone] | | | | | right wrist | [phone] | Fax: | | | | | Procedures | Fax: | [phone] | | | | | OT TREAT | [phone] | | +--------+--------+ + + + + [...] | | [address] [place] | [place] [address] | (Primary Dx); Right | | | | [place], [place] | [phone] | wrist pain | | | | [address] | | | | | | [phone] | Nakia Koo OT | | +--------+ [...] Koo, OT - 11/09/2018 2:17 PM PST [facility] OT [address] [place] [address] Occupational Therapy Daily Treatment Note Date: 11/08/2018 [...] wrist but continues to have right wrist, burial 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 pinch 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 and significant pain (3 [...] in 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, and burial 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 pinch weakness in the right hand [...] | | | | | [place] [address] | | | | | | [phone] | | | | | | | | +--------+ + + + + | 10/30/ | Office | Primary Care | Erika Ernst, | | | 2019 | Visit | | DO [address] [place] | | | | | | [place] [address] | | | | | | [phone] | | | | | | | [...] [place] | | | | | | [address] | | | | | | [phone] | | | | | | | | +--------+ + + + + | 02/09/ | Office | Neurology | Dhara, | | | 2019 | Visit | | [address] | | | | | | [address] [place], | | | | | | [place] [address] | | | | | | [phone] | | | | | | | | +--------+ + + + + documented as of this encounter Visit Diagnoses + + | Diagnosis | + + | Radial styloid tenosynovitis - Primary | + + | Right wrist pain Pain in joint, forearm | + + documented in this encounter
--- OUTSIDE RECORDS SUMMARY | ~2019-09-30 | XMS | Encounter Summary ---
Demographics + + + | Address | [address] | | | [place] [address] | + + + | Home Phone [...] Team Providers + +------+ + | Care Pharmacy Clinical Coordinator Name | Role | Phone | [...] | | | CENTER [address] | [facility] | | | | | [address] [place] | [place] [address] | | | | | [address] | [phone] | | | | | [phone] | | | +--------+ + + + [...] 0 | 04/08/20 | | | (JOS[facility] ANTNO[facility] ALLERGY) | | | | 17 | [...] | | | | | [place] [address] | | | | | | [phone] | | | | | | | | +--------+ + + + + | 10/30/ | Office | Primary Care | Erika Ernst, | | | 2019 | Visit | | DO [address] [place] | | | | | | [place] [address] | | | | | | [phone] | | | | | | | [...] [place] | | | | | | [address] | | | | | | [phone] | | | | | | | | +--------+ + + + + | 02/09/ | Office | Neurology | Dhara, | | | 2020 | Visit | | [address]WA[address] | | | | | [address] [place], | | | | | | [place] [address] | | | | | | [phone] | | | | | | | | +--------+ + + + + documented as of this encounter Visit Diagnoses Not on filedocumented in this encounter"
--- OUTSIDE RECORDS SUMMARY | ~2019-09-30 | XMS | Encounter Summary ---
Demographics + + + | Address | [address] | | | [place] [address] | + + + | Home Phone [...] Team Providers + +------+ + | Care Kennel Hand Name | Role | Phone | [...] | [place], [place] | [place] [address] | Dx); Right wrist | | | | [address] | [phone] | pain | | | | [phone] | | | +--------+---------+ + + + [...] E.C.U. Tendon; Surgeon: Inocencio Noriega MD; Location: [facility] SURGERY RIGHT KIDNER PROCEDURE 01/20/2016 Surgeon: Fani Mahajan MD; Location: [facility] TENDON RELEASE TONSILLECTOMY WISDOM TOOTH EXTRACTION Family History Problem Relation Age of Onset Other (see comment) Mother gallbladder disease Diabetes Mother Heart disease Mother Hypertension Father Other (see comment) Father arrhymthmia Breast cancer Sister Breast cancer Maternal Grandmother Heart attack Maternal Aunt [place] Hypertension Maternal Uncle Social History Tobacco Use [...] made to ensure accuracy. However, inadvertent computerized barrel cutter errors may be pre sent. documented in [...] | | | | | [place], [place] [address] | | | | | | [phone] | | | | | | | | +--------+ + + + + | 10/30/ | Office | Primary Care | Erika Ernst, | | | 2019 | Visit | | DO [address] [place] | | | | | | [place] [address] | | | | | | [phone] | | | | | | | [...] [place] | | | | | | [address] | | | | | | [phone] | | | | | | | | +--------+ + + + + | 02/09/ | Office | Neurology | Dhara, | | | 2019 | Visit | | [address] | | | | | | [address]TH [facility], | | | | | | [place] [address] | | | | | | [phone] | | | | | | | | +--------+ + + + + documented as of this encounter Visit Diagnoses + + | Diagnosis | + + | S/P right ECU tenosynovectomy on 03/20/19 - Primary | + + | Right wrist pain Pain in joint, forearm | + + documented in this encounter"
--- OUTSIDE RECORDS SUMMARY | ~2019-09-30 | XMS | Encounter Summary ---
Demographics + + + | Address | [address] | | | [place] [address] | + + + | Home Phone [...] Providers + +------+ + | Care Die Inspector Name | Role | Phone | [...] persistent | | 2019 | Visit | [facility] | joanna, DIAL PAINTER [address] | asthma with | | | | MEDICAL CLINIC [address] | [address] [place] | exacerbation | | | | [address] [place], | [place] [address] | (Primary Dx); | | | | [place] [address] | [phone] | Environmental | | | | [phone] | | allergies | +--------+---------+ + + [...] made to ensure accuracy. However, inadvertent computerized emergency specialist errors may be pre sent documented in [...] | | | | | [place] [address] | | | | | | [phone] | | | | | | | | +--------+ + + + + | 10/30/ | Office | Primary Care | Erika Ernst, | | | 2019 | Visit | | DO [address] [place] | | | | | | [place] [address] | | | | | | [phone] | | | | | | | [...] [place] | | | | | | [address] | | | | | | [phone] | | | | | | | | +--------+ + + + + | 02/09/ | Office | Neurology | Dhara, | | | 2020 | Visit | | Cody, DIAL PAINTER [address] | | | | | | [address] [facility] [place], | | | | | | [place] [address] | | | | | | [phone] | | | | | | | [...]
--- OUTSIDE RECORDS SUMMARY | ~2019-09-30 | XMS | Encounter Summary ---
Demographics + + + | Address | [address] | | | [place] [address] | + + + | Home Phone [...] Team Providers + +------+ + | Care Pole Cutter Name | Role | Phone | [...] Asthma | | 2019 | | [facility] | DO [address] | | | | | MEDICAL CLINIC [address] | [place] [address] | | | | | [address] [place], | [phone] | | | | | [place] [address] | | | | | | [phone] | | | +--------+ + + + [...] | | | | | [place] [address] | | | | | | [phone] | | | | | | | | +--------+ + + + + | 10/30/ | Office | Primary Care | Erika Ernst, | | | 2019 | Visit | | DO [address] [place] | | | | | | [place] [address] | | | | | | [phone] | | | | | | | [...] [place] | | | | | | [address] | | | | | | [phone] | | | | | | | | +--------+ + + + + | 02/09/ | Office | Neurology | Dhara, | | | 2019 | Visit | | [address]WAINE [address] | | | | | | [address] [place], | | | | | | [place] [address] | | | | | | [phone] | | | | | | | | +--------+ + + + + documented as of this encounter Visit Diagnoses Not on filedocumented in this encounter"
--- OUTSIDE RECORDS SUMMARY | ~2019-09-30 | XMS | Encounter Summary ---
Demographics + + + | Address | [address] | | | [place] [address] | + + + | Home Phone [...] Team Providers + +------+ + | Care Rink Rat Name | Role | Phone | + [...] | | | | Procedures | [place] [address] | [place], [place] | | | | | [place] | Phone: | [address] | | | | | | [phone] | Phone: | | | | | | Fax: | [phone] | | | | | | [phone] | Fax: | | | | | | | [phone] | + + + + + + + Encounter Details +--------+ + + + + | Date | Type | Department | Care Team | Description | +--------+ + + + + | 07/02/ | Orders Only | [place] [facility] | Erika Ernst, | Left thyroid nodule | | 2019 | | [facility] | DO [address] [place] | (Primary Dx) | | | | MEDICAL CLINIC [address] | [place] [address] | | | | | [address] [place], | [phone] | | | | | [place] [address] | | | | | | [phone] | | | +--------+ + + + [...] | | | | | [place] [address] | | | | | | [phone] | | | | | | | | +--------+ + + + + | 10/30/ | Office | Primary Care | Erika Ernst, | | | 2019 | Visit | | DO [address] [place] | | | | | | [place] [address] | | | | | | [phone] | | | | | | | [...] [place] | | | | | | [address] | | | | | | [phone] | | | | | | | | +--------+ + + + + | 02/09/ | Office | Neurology | Dhara, | | | 2019 | Visit | | [address]WAINE [address] | | | | | | [address] [place], | | | | | | [place] [address] | | | | | | [phone] | | | | | | | | +--------+ + + + + + + +--------+ + + | Name | Type | Priori | Associated Diagnoses | Order Schedule | | | | ty | | | + + +--------+ + + | * [place] [facility] | Outpatient | Routin | Left [...]
--- OUTSIDE RECORDS SUMMARY | ~2019-09-30 | XMS | Encounter Summary ---
Demographics + + + | Address | [address] | | | [place] [address] | + + + | Home Phone [...] Providers + +------+ + | Care Control System Manager Name | Role | Phone | + +------+ + PCP | Unavailable | + +------+ + Encounter Details +--------+ + + + + | Date | Type | Department | Care Team | Description | +--------+ + + + + | 06/22/ | [facility] | [facility] | Amaya Varner NP | | | 2016 | Encounter | [facility] | [address] | | | | | MEDICAL CLINIC [address] | [place], [place] | | | | | [address] [place], | [address] | | | | | [place] [address] | [phone] | | | | | [phone] | | | +--------+ + + + [...] | | | | | [place] [address] | | | | | | [phone] | | | | | | | | +--------+ + + + + | 10/30/ | Office | Primary Care | Erika Ernst, | | | 2019 | Visit | | DO [address] [place] | | | | | | [place] [address] | | | | | | [phone] | | | | | | | [...] [place] | | | | | | [address] | | | | | | [phone] | | | | | | | | +--------+ + + + + | 02/09/ | Office | Neurology | Dhara, | | | 2019 | Visit | | [address]WA[address] | | | | | | [address] [place], | | | | | | [place] [address] | | | | | | [phone] | | | | | | | | +--------+ + + + + documented as of this encounter Visit Diagnoses Not on filedocumented in this encounter"
--- OUTSIDE RECORDS SUMMARY | ~2019-09-30 | XMS | Encounter Summary ---
Demographics + + + | Address | [address] | | | [place] [address] | + + + | Home Phone [...] Team Providers + +------+ + | Care Drying Unit Felting Machine Operator Name | Role | Phone [...] | [place], [place] | [place] [address] | | | | | [address] | [phone] | | | | | [phone] | | | +--------+ + + + [...] | | | | | [place] [address] | | | | | | [phone] | | | | | | | | +--------+ + + + + | 10/30/ | Office | Primary Care | Erika Ernst, | | | 2019 | Visit | | DO [address] [place] | | | | | | [place] [address] | | | | | | [phone] | | | | | | | [...] [place] | | | | | | [address] | | | | | | [phone] | | | | | | | | +--------+ + + + + | 02/09/ | Office | Neurology | Dhara, | | | 2020 | Visit | | [address]WAINE [address] | | | | | | [address] [place], | | | | | | [place] [address] | | | | | | [phone] | | | | | | | | +--------+ + + + + documented as of this encounter Visit Diagnoses Not on filedocumented in this encounter"
--- OUTSIDE RECORDS SUMMARY | ~2019-09-30 | XMS | Encounter Summary ---
Demographics + + + | Address | [address] | | | [place] [address] | + + + | Home Phone [...] Providers + +------+ + | Care Salesperson Terrazzo Tiles Name | Role | Phone | + +------+ + PCP | Unavailable | + +------+ + Encounter Details +--------+ + + + + | Date | Type | Department | Care Team | Description | +--------+ + + + + | 03/25/ | [facility] | Erika Ernst, | | | 2015 | Encounter | [facility] | DO [address] [place] | | | | | [address] [place] | [place] [address] | | | | | [place], [place] | [phone] | | | | | [address] | | | | | | [phone] | | | +--------+ + + + [...] by Nasal route. | | 0 | 0520 | | | (FLONASE) 50 | | [...] | | | | | [place] [address] | | | | | | [phone] | | | | | | | | +--------+ + + + + | 10/30/ | Office | Primary Care | Erika Ernst, | | | 2019 | Visit | | DO [address] [place] | | | | | | [place] [address] | | | | | | [phone] | | | | | | | [...] [place] | | | | | | [address] | | | | | | [phone] | | | | | | | | +--------+ + + + + | 02/09/ | Office | Neurology | Dhara, | | | 2019 | Visit | | [address]WA[address] | | | | | [address] [place], | | | | | | [place] [address] | | | | | | [phone] | | | | | | | | +--------+ + + + + documented as of this encounter Visit Diagnoses Not on filedocumented in this encounter"
--- OUTSIDE RECORDS SUMMARY | ~2019-09-30 | XMS | Encounter Summary ---
Demographics + + + | Address | [address] | | | [place] [address] | + + + | Home Phone [...] Team Providers + +------+ + | Care Flask Cleaner Name | Role | Phone | [...] | [place], [place] | [place] [address] | | | | | [address] | [phone] | | | | | [phone] | | | +--------+ + + + [...] | | | | | [place] [address] | | | | | | [phone] | | | | | | | | +--------+ + + + + | 10/30/ | Office | Primary Care | Erika Ernst, | | | 2019 | Visit | | DO [address] | | | | | | [place] [address] | | | | | | [phone] | | | | | | | [...] [place] | | | | | | [address] | | | | | | [phone] | | | | | | | | +--------+ + + + + | 02/09/ | Office | Neurology | Dhara, | | | 2019 | Visit | | DWAINE Ross [address] [place], | | | | | | [place] [address] | | | | | | [phone] | | | | | | | | +--------+ + + + + documented as of this encounter Visit Diagnoses Not on filedocumented in this encounter"
--- OUTSIDE RECORDS SUMMARY | ~2019-09-30 | XMS | Encounter Summary ---
Demographics + + + | Address | [address] | | | [place] [address] | + + + | Home Phone [...] Team Providers + +------+ + | Care Paintings Conservator Name | Role | Phone | + [...] | [facility] | [place] [address] | | | | | [address] [place], | [phone] | | | | | [place] [address] | | | | | | [phone] | | | +--------+ + + + [...] | | | | | [place] [address] | | | | | | [phone] | | | | | | | | +--------+ + + + + | 10/30/ | Office | Primary Care | Erika Ernst, | | | 2019 | Visit | | DO [address] | | | | | | [place] [address] | | | | | | [phone] | | | | | | | [...] [place] | | | | | | [address] | | | | | | [phone] | | | | | | | | +--------+ + + + + | 02/09/ | Office | Neurology | Dhara, | | | 2019 | Visit | | [address] | | | | | | [address] [place], | | | | | | [place] [address] | | | | | | [phone] | | | | | | | | +--------+ + + + + documented as of this encounter Visit Diagnoses + + | Diagnosis | + + | Vitamin D deficiency - Primary Unspecified vitamin D deficiency | + + documented in this encounter"
--- OUTSIDE RECORDS SUMMARY | ~2019-09-30 | XMS | Encounter Summary ---
Demographics + + + | Address | [address] | | | [place] [address] | + + + | Home Phone [...] Team Providers + +------+ + | Care Abstract Searcher Name | Role | Phone | + +------+ + PCP | Unavailable | + +------+ + Encounter Details +--------+ + + + + | Date | Type | Department | Care Team | Description | +--------+ + + + + | 12/07/ | Hospital | [place] [facility] | Caro Zendejas | | | 2016 | Encounter | HOSPITAL [facility]UR[facility] | MCKENZIE Collazo [address] | | | | | [address] | [facility] [place] | | | | | [place], [place] | [address] | | | | | [address] | [phone] | | | | | [phone] | | | +--------+ + + + [...] | | | | | [place] [address] | | | | | | [phone] | | | | | | | | +--------+ + + + + | 10/30/ | Office | Primary Care | Erika Ernst, | | | 2019 | Visit | | DO [address] | | | | | | [place] [address] | | | | | | [phone] | | | | | | | [...] [place] | | | | | | [address] | | | | | | [phone] | | | | | | | | +--------+ + + + + | 02/09/ | Office | Neurology | Dhara, | | | 2020 | Visit | | [address] | | | | | | [address] [place], | | | | | | [place] [address] | | | | | | [phone] | | | | | | | | +--------+ + + + + documented as of this encounter Visit Diagnoses Not on filedocumented in this encounter"
--- OUTSIDE RECORDS SUMMARY | ~2019-09-30 | XMS | Encounter Summary ---
Demographics + + + | Address | [address] | | | [place] [address] | + + + | Home Phone [...] Team Providers + +------+ + | Care Wrapper Hand Name | Role | Phone | [...] | [facility] | [place] [address] | | | | | [address] [place], | [phone] | | | | | [place] [address] | | | | | | [phone] | | | +--------+ + + + [...] visit. States she wa s at the [facility] couple days ago for an affected area on her hip. Patient states it has gotten worse,and she thinks it is spreading and it is more painful to the touch and red. She was t old to return if symptoms occurs. I did not see any drainage, some redness noted around the area and warm. Patient advised to return to [facility] so it can be evaluated. Patient states she is on augmentin and was given bactrim also. Patient had another appt elsewhere and would re turn to [facility] when finished. shelleyc documented in [...] | | | | | [place] [address] | | | | | | [phone] | | | | | | | | +--------+ + + + + | 10/30/ | Office | Primary Care | Erika Ernst, | | | 2019 | Visit | | DO [address] | | | | | | [place] [address] | | | | | | [phone] | | | | | | | [...] [place] | | | | | | [address] | | | | | | [phone] | | | | | | | | +--------+ + + + + | 02/09/ | Office | Neurology | Dhara, | | | 2019 | Visit | | [address] | | | | | | [address] [place], | | | | | | [place] [address] | | | | | | [phone] | | | | | | | | +--------+ + + + + documented as of this encounter Visit Diagnoses Not on filedocumented in this encounter"
--- OUTSIDE RECORDS SUMMARY | ~2019-09-30 | XMS | Encounter Summary ---
Demographics + + + | Address | [address] | | | [place] [address] | + + + | Home Phone [...] Providers + +------+ + | Care School Business Manager Name | Role | Phone [...] | 2018 | | HOSPITAL [facility] | INCOMING INSPECTOR [address] | immobilizing cast | | | | CENTER [address] | [place] | (Primary Dx) | | | | [place] | [address] | | | | | [address] | | | | | | [phone] | | | +--------+ + + + [...] be sent through Care Everywhere.Zohra Marrero Instructions (Indian)documented in this encounter Medications at Time of [...] | 04/12/20 | | | (VITAMIN D3) 61834 | mouth Once a week | tablet [...] | | | | | [place] [address] | | | | | | [phone] | | | | | | | | +--------+ + + + + | 10/30/ | Office | Primary Care | Erika Ernst, | | | 2019 | Visit | | DO [address] | | | | | | [place] [address] | | | | | | [phone] | | | | | | | [...] [place] | | | | | | [address] | | | | | | [phone] | | | | | | | | +--------+ + + + + | 02/09/ | Office | Neurology | Dhara, | | | 2019 | Visit | | [address] | | | | | | [address] [place], | | | | | | [place] [address] | | | | | | [phone] | | | | | | | [...]
--- OUTSIDE RECORDS SUMMARY | ~2019-09-30 | XMS | Encounter Summary ---
Demographics + + + | Address | [address] | | | [place] [address] | + + + | Home Phone [...] Team Providers + +------+ + | Care Stenotypist Name | Role | Phone | + +------+ + PCP | Unavailable | + +------+ + Encounter Details +--------+ + + + + | Date | Type | Department | Care Team | Description | +--------+ + + + + | 12/23/ | Hospital | [place] [facility] | Heather Yip, | | | 2016 | Encounter | HOSPITAL NURSERY | CUTTER HELPER [address] | | | | | [address] | [place] [address] | | | | | [place], [place] | [phone] | | | | | [address] | | | | | | [phone] | | | +--------+ + + + [...] | | | | | [place] [address] | | | | | | [phone] | | | | | | | | +--------+ + + + + | 10/30/ | Office | Primary Care | Erika Ernst, | | | 2019 | Visit | | DO [address] | | | | | | [place] [address] | | | | | | [phone] | | | | | | | [...] [place] | | | | | | [address] | | | | | | [phone] | | | | | | | | +--------+ + + + + | 02/09/ | Office | Neurology | Dhara, | | | 2020 | Visit | | [address] | | | | | | [address] [place], | | | | | | [place] [address] | | | | | | [phone] | | | | | | | | +--------+ + + + + documented as of this encounter Visit Diagnoses Not on filedocumented in this encounter"
--- OUTSIDE RECORDS SUMMARY | ~2019-09-30 | XMS | Encounter Summary ---
Demographics + + + | Address | [address] | | | [place] [address] | + + + | Home Phone [...] Team Providers + +------+ + | Care Od Grinder Operator Name | Role | Phone [...] | [facility] | [address] | Authorization | | | | [facility] | [facility] [place] [address] | | | | | [address] [facility], | [phone] | | | | | [place] [address] | | | | | | [phone] | | | +--------+ + + + [...] | | | | | [place] [address] | | | | | | [phone] | | | | | | | | +--------+ + + + + | 10/30/ | Office | Primary Care | Erika Ernst, | | | 2019 | Visit | | DO [address] | | | | | | [place] [address] | | | | | | [phone] | | | | | | | [...] [place] | | | | | | [address] | | | | | | [phone] | | | | | | | | +--------+ + + + + | 02/09/ | Office | Neurology | Dhara, | | | 2019 | Visit | | Karyanne, CANDY CATCHER [address] | | | | | | [address] [place], | | | | | | [place] [address] | | | | | | [phone] | | | | | | | | +--------+ + + + + documented as of this encounter Visit Diagnoses Not on filedocumented in this encounter"
--- OUTSIDE RECORDS SUMMARY | ~2019-09-30 | XMS | Encounter Summary ---
Demographics + + + | Address | [address] | | | [place] [address] | + + + | Home Phone [...] Team Providers + +------+ + | Care Php Website Developer Name | Role | Phone | [...] | | | | disorder) | [place] [address] | [place] | | | | | Anxiety | Phone: | RECOVERY | | | | | | [phone] | [address] | | | | | | Fax: | [place], [place] | | | | | | [phone] | [address] | | | | | | | Phone: | | | | | | | [phone] | | | | | | | Fax: | | | | | | | [phone] | +--------+ + + + + + [...] CLINIC [address] | [place] [place] [address] | allergies (Primary | | | | [address] [facility], | [phone] | Dx); PTSD | | | | [place] [address] | | (post-traumatic | | | | [phone] | | stress disorder); | | | [...] states the therapist she was seeing in [facility] has moved. We will refer her to Radha Lamb her in [place]. She states anxiety has bee n a [...] daily. 30 tablet 0 Cholecalciferol (VITAMIN D3) 64259 units TABS Take 1 tablet by mouth [...] one week. Referral to Radha Lamb at [facility] for mental health therapy. documented in this [...] | | | | | [place] [address] | | | | | | [phone] | | | | | | | | +--------+ + + + + | 10/30/ | Office | Primary Care | Erika Ernst, | | | 2019 | Visit | | DO [address] | | | | | | [place] [address] | | | | | | [phone] | | | | | | | [...] [place] | | | | | | [address] | | | | | | [phone] | | | | | | | | +--------+ + + + + | 02/09/ | Office | Neurology | Dhara, | | | 2019 | Visit | | [address] | | | | | | [address] [place], | | | | | | [place] [address] | | | | | | [phone] | | | | | | | [...]
--- OUTSIDE RECORDS SUMMARY | ~2019-09-30 | XMS | Encounter Summary ---
Demographics + + + | Address | [address] | | | [place] [address] | + + + | Home Phone [...] Team Providers + +------+ + | Care Postie Name | Role | Phone | + [...] | | | of left | [place] [address] | [place] [address] | | | | | ankle, | Phone: | Phone: | | | | | initial | [phone] | [phone] | | | | | encounter | Fax: | Fax: | | | | | Procedures | [phone] | [phone] | | | | | PT EVAL [...] [address] | [place] [address] | encounter (Primary | | | | [place], [place] | [phone] | Dx) | | | | [address] | | | | | | [phone] | Nick Barrios I, PT | | [...] Ordering Physician: Erika Ernst DO Claim #: [id number] Date of Injury: 06/11/2018 Visits since the [...] Certification To: 11/02/2018 Treatment Plan/Interventions PT EvaluationPT Re-Wqvzuootos20802 - Therapeutic Zrzofefs90019 - Neuromuscular Reeducation9 7116 - Gait Dzgtfwmb17090 - Therapeutic Gigqdgccen50939 - Manual Wspgfzn44000 - Self Care/Ho me Qbdeltbuoa53887 - Group Therapeutic Xvwjhwbaua58382 - Aquatic Therapy/Xkjnrltmh94768 - Io ubdgxnjwfxx71124 - TENS Application/Xcttqdikndf55753 - Electrical Stimulation, Fyiossinkl438 35 - Ultrasound Patient and/or family has [...] reports of muscle fatigue an d requiring HEALTH INFORMATION ADMINISTRATOR with grab bar in order to maintain [...] continuation of physical therapy services into [facility] period in order to return to [...] note might be different from the original. [facility] PT [address] [place] [address] Physical Therapy Daily Treatment Note Date: 08/14/2018 [...] and B genuvalgum during ambulation Level of [place]: independent Gait Deviations: stride width increased, other [...] with reports of muscle fatigue and requiring HEALTH INFORMATION ADMINISTRATOR with gra b bar in order to [...] in favor of SL heel raise with HEALTH INFORMATION ADMINISTRATOR. ONGOING: SLS on even surface 3x30 seconds [...] 2x1 minute each foot positi on with HEALTH INFORMATION ADMINISTRATOR as needed with grab bar, SBA // Rhomberg stance on bosu eyes open HEALTH INFORMATION ADMINISTRATOR as needed 2x1 minute // additional time [...] | | | | | [place] [address] | | | | | | [phone] | | | | | | | | +--------+ + + + + | 10/30/ | Office | Primary Care | Erika Ernst, | | | 2019 | Visit | | DO [address] | | | | | | [place] [address] | | | | | | [phone] | | | | | | | [...] [place] | | | | | | [address] | | | | | | [phone] | | | | | | | | +--------+ + + + + | 02/09/ | Office | Neurology | Dhara, | | | 2019 | Visit | | [address] | | | | | | [address] [place], | | | | | | [place] [address] | | | | | | [phone] | | | | | | | | +--------+ + + + + documented as of this encounter Visit Diagnoses + + | Diagnosis | + + | Sprain of left ankle, subsequent encounter - Primary | + + documented in this encounter
--- OUTSIDE RECORDS SUMMARY | ~2019-09-30 | XMS | Encounter Summary ---
Demographics + + + | Address | [address] | | | [place] [address] | + + + | Home Phone [...] Team Providers + +------+ + | Care Optometric Tech Name | Role | Phone | [...] | | | [place], [place] | [address] | | | | | [address] | [phone] | | | | | [phone] | | | +--------+ + + + [...] | | | | | [place] [address] | | | | | | [phone] | | | | | | | | +--------+ + + + + | 10/30/ | Office | Primary Care | Erika Ernst, | | | 2019 | Visit | | DO [address] | | | | | | [place] [address] | | | | | | [phone] | | | | | | | [...] [place] | | | | | | [address] | | | | | | [phone] | | | | | | | | +--------+ + + + + | 02/09/ | Office | Neurology | Dhara, | | | 2020 | Visit | | [address] | | | | | | [address] [place], | | | | | | [place] [address] | | | | | | [phone] | | | | | | | | +--------+ + + + + documented as of this encounter Visit Diagnoses Not on filedocumented in this encounter"
--- OUTSIDE RECORDS SUMMARY | ~2019-09-30 | XMS | Encounter Summary ---
Demographics + + + | Address | [address] | | | [place] [address] | + + + | Home Phone [...] Team Providers + +------+ + | Care Drafter Refrigeration Name | Role | Phone | + [...] | [facility] [address] | [place] [address] | (Primary Dx) | | | | [address] [place], | [phone] | | | | | [place] [address] | | | | | | [phone] | | | +--------+ + + + [...] 2019 | Visit | | DO [address] | | | | | | [place] [address] | | | | | | [phone] | | | | | | | | +--------+ + + + + | 10/30/ | Office | Primary Care | Erika Ernst, | | | 2019 | Visit | | DO [address] [place] | | | | | | [place] [address] | | | | | | [phone] | | | | | | | [...] [place] | | | | | | [address] | | | | | | [phone] | | | | | | | | +--------+ + + + + | 02/09/ | Office | Neurology | Dhara, | | | 2019 | Visit | | [address] | | | | | | [address] [place], | | | | | | [place] [address] | | | | | | [phone] | | | | | | | | +--------+ + + + + documented as of this encounter Visit Diagnoses + + | Diagnosis | + + | Essential hypertension - Primary Unspecified essential hypertension | + + documented in this encounter"
--- OUTSIDE RECORDS SUMMARY | ~2019-09-30 | XMS | Encounter Summary ---
Demographics + + + | Address | [address] | | | [place] [address] | + + + | Home Phone [...] Team Providers + +------+ + | Care Baseball Glove Shaper Name | Role | Phone | + [...] Results, Imaging | | 2019 | | [facility] | DO [address]ha [address] | | | | | CL[address] | [address] | | | | | [address] [place], | [place], [place] | | | | | [place] [address] | [address] | | | | | [phone] | [phone] | | | | | | | [...] | | | | | [place] [address] | | | | | | [phone] | | | | | | | | +--------+ + + + + | 10/30/ | Office | Primary Care | Erika Ernst, | | | 2019 | Visit | | DO [address] | | | | | | [place] [address] | | | | | | [phone] | | | | | | | [...] [place] | | | | | | [address] | | | | | | [phone] | | | | | | | | +--------+ + + + + | 02/09/ | Office | Neurology | Dhara, | | | 2020 | Visit | | [address] | | | | | | [address] [place], | | | | | | [place] [address] | | | | | | [phone] | | | | | | | | +--------+ + + + + documented as of this encounter Visit Diagnoses Not on filedocumented in this encounter"
--- OUTSIDE RECORDS SUMMARY | ~2019-09-30 | XMS | Encounter Summary ---
Demographics + + + | Address | [address] | | | [place] [address] | + + + | Home Phone [...] Providers + +------+ + | Care Repairer Recreational Vehicle Name | Role | Phone | + [...] | | | [facility]ICAL [facility] [address] | [facility] [place] [address] | | | | | [address] [facility], | [phone] | | | | | [place] [address] | | | | | | [phone] | | | +--------+ + + + [...] | | | | | [place] [address] | | | | | | [phone] | | | | | | | | +--------+ + + + + | 10/30/ | Office | Primary Care | Erika Ernst, | | | 2019 | Visit | | DO [address] | | | | | | [place] [address] | | | | | | [phone] | | | | | | | [...] [place] | | | | | | [address] | | | | | | [phone] | | | | | | | | +--------+ + + + + | 02/09/ | Office | Neurology | Dhara, | | | 2020 | Visit | | [address] | | | | | | [address] [place], | | | | | | [place] [address] | | | | | | [phone] | | | | | | | | +--------+ + + + + documented as of this encounter Visit Diagnoses Not on filedocumented in this encounter"
--- OUTSIDE RECORDS SUMMARY | ~2019-09-30 | XMS | Encounter Summary ---
Demographics + + + | Address | [address] | | | [place] [address] | + + + | Home Phone [...] Team Providers + +------+ + | Care Facility Specialist Name | Role | Phone | [...] Pressure | | 2019 | | [facility] | DO [address] | | | | | MEDICAL CL[facility] [address] | [place] [address] | | | | | [address] [place], | [phone] | | | | | [place] [address] | | | | | | [phone] | | | +--------+ + + + [...] | | | | | [place] [address] | | | | | | [phone] | | | | | | | | +--------+ + + + + | 10/30/ | Office | Primary Care | Erika Ernst, | | | 2019 | Visit | | DO [address] [place] [address] | | | | | | [place] [address] | | | | | | [phone] | | | | | | | [...] [place] | | | | | | [address] | | | | | | [phone] | | | | | | | | +--------+ + + + + | 02/09/ | Office | Neurology | Dhara, | | | 2019 | Visit | | [address] | | | | | | [address] [place], | | | | | | [place] [address] | | | | | | [phone] | | | | | | | | +--------+ + + + + documented as of this encounter Visit Diagnoses Not on filedocumented in this encounter"
--- OUTSIDE RECORDS SUMMARY | ~2019-09-30 | XMS | Encounter Summary ---
Demographics + + + | Address | [address] | | | [place] [address] | + + + | Home Phone [...] Providers + +------+ + | Care Staff Pharmacist Hospital Name | Role | Phone | [...] | [facility] [address] | [place] [address] | frontal sinusitis | | | | [address] [place], | [phone] | | | | | [place] [address] | | | | | | [phone] | | | +--------+---------+ + + + [...] to FU with Emeka Vaughan [facility]. She has good BP [...] | | | | | [place] [address] | | | | | | [phone] | | | | | | | | +--------+ + + + + | 10/30/ | Office | Primary Care | Erika Ernst, | | | 2019 | Visit | | DO [address] | | | | | | [place] [address] | | | | | | [phone] | | | | | | | [...] [place] | | | | | | [address] | | | | | | [phone] | | | | | | | | +--------+ + + + + | 02/09/ | Office | Neurology | Dhara, | | | 2019 | Visit | | [address] | | | | | | [address]TH [facility], | | | | | | [place] [address] | | | | | | [phone] | | | | | | | | +--------+ + + + + documented as of this encounter Visit Diagnoses + + | Diagnosis | + + | Anxiety - Primary Anxiety state, unspecified | + + | Acute recurrent frontal sinusitis Acute frontal sinusitis | + + documented in this encounter
--- OUTSIDE RECORDS SUMMARY | ~2019-09-30 | XMS | Encounter Summary ---
Demographics + + + | Address | [address] | | | [place] [address] | + + + | Home Phone [...] Providers + +------+ + | Care Staff Electrical Engineer Name | Role | Phone | + +------+ + PCP | Unavailable | + +------+ + Encounter Details +--------+ + + + + | Date | Type | Department | Care Team | Description | +--------+ + + + + | 03/01/ | [facility] | Azul Yeboah | | | 2016 | Encounter | HOSPITAL NEUROLOGY | MD Marti [address] | | | | | CLINIC [address] | [place] | | | | | [address] [place], | [place] [address] | | | | | [place] [address] | [phone] | | | | | [phone] | | | +--------+ + + + [...] | | | | | [place] [address] | | | | | | [phone] | | | | | | | | +--------+ + + + + | 10/30/ | Office | Primary Care | Erika Ernst, | | | 2019 | Visit | | DO [address] | | | | | | [place] [address] | | | | | | [phone] | | | | | | | [...] [place] | | | | | | [address] | | | | | | [phone] | | | | | | | | +--------+ + + + + | 02/09/ | Office | Neurology | Dhara, | | | 2019 | Visit | | [address] | | | | | [address] [place], | | | | | | [place] [address] | | | | | | [phone] | | | | | | | | +--------+ + + + + documented as of this encounter Visit Diagnoses Not on filedocumented in this encounter"
--- OUTSIDE RECORDS SUMMARY | ~2019-09-30 | XMS | Encounter Summary ---
Demographics + + + | Address | [address] | | | [place] [address] | + + + | Home Phone [...] Team Providers + +------+ + | Care Cook Candy Name | Role | Phone | + [...] | | | CENTER [address] | [facility] | | | | | DR [place], [place] | [employer] [place] [address] | | | | | [address] | [phone] | | | | | [phone] | | | +--------+ + + + [...] | 11/26/19 | | | (VITAMIN D3) 92337 | mouth Once a week | tablet [...] | | | | | [place] [address] | | | | | | [phone] | | | | | | | | +--------+ + + + + | 10/30/ | Office | Primary Care | Erika Ernst, | | | 2019 | Visit | | DO [address] | | | | | | [place] [address] | | | | | | [phone] | | | | | | | [...] [place] | | | | | | [address] | | | | | | [phone] | | | | | | | | +--------+ + + + + | 02/09/ | Office | Neurology | Dhara, | | | 2019 | Visit | | [address] | | | | | | [address] [place], | | | | | | [place] [address] | | | | | | [phone] | | | | | | | [...] | | n - | | | 02/02/ | | | 2018 | | | [...] | | | FICATI | | | ON?05/ | | | | | | 9 | | | 13:59? | | | NOBLIT | | | , | | | ANDREA | | | C?MRN: | | | | | | [id number] | | | [id number] | | | riteri | | | [...] | | | St. | | | [place] | | | y | | | [...] | | | St. | | | [place] | | | y H. | | [...] | | | ent/e5 | | | [id number] | | | -b14d- | | | 444a-8 | | | 61c-15 | | | [id number] | | | [id number] | | | [...] IMPRESSION:No acute process.Dictated by: | | Braydon Booneectronically Signed by: Braydon Stockton on 02/02/2019 4:01 PM | | | |COMPARISON STUDY: | |December [...]
--- OUTSIDE RECORDS SUMMARY | ~2019-09-30 | XMS | Encounter Summary ---
Demographics + + + | Address | [address] | | | [place] [address] | + + + | Home Phone [...] | +--------+ + + + + | 11/11/ | [facility] | Erika Ernst, | | | 2017 | Encounter | [facility] | DO [address] | | | | | [facility] [address] | [place] [address] | | | | | [address] [place], | [phone] | | | | | [place] [address] | | | | | | [phone] | | | +--------+ + + + [...] | | | | | [place] [address] | | | | | | [phone] | | | | | | | | +--------+ + + + + | 10/30/ | Office | Primary Care | Erika Ernst, | | | 2019 | Visit | | DO [address] | | | | | | [place] [address] | | | | | | [phone] | | | | | | | [...] [place] | | | | | | [address] | | | | | | [phone] | | | | | | | | +--------+ + + + + | 02/09/ | Office | Neurology | Dhara, | | | 2019 | Visit | | DWA[address] [place], | | | | | | [place] [address] | | | | | | [phone] | | | | | | | | +--------+ + + + + documented as of this encounter Visit Diagnoses Not on filedocumented in this encounter"
--- OUTSIDE RECORDS SUMMARY | ~2019-09-30 | XMS | Encounter Summary ---
Demographics + + + | Address | [address] | | | [place] [address] | + + + | Home Phone [...] Team Providers + +------+ + | Care Coupon Collection Clerk Name | Role | Phone | [...] | [address] [place], [place] | [place] [address] | | | | | [address] | [phone] | | | | | [phone] | | | +--------+ + + + [...] | | | | | [place] [address] | | | | | | [phone] | | | | | | | | +--------+ + + + + | 10/30/ | Office | Primary Care | Erika Ernst, | | | 2019 | Visit | | DO [address] [place] | | | | | | [place] [address] | | | | | | [phone] | | | | | | | [...] [place] | | | | | | [address] | | | | | | [phone] | | | | | | | | +--------+ + + + + | 02/09/ | Office | Neurology | Dhara, | | | 2020 | Visit | | DWAINE Ross [address] | | | | [address] [place], | | | | | | [place] [address] | | | | | | [phone] | | | | | | | | +--------+ + + + + documented as of this encounter Visit Diagnoses Not on filedocumented in this encounter"
--- OUTSIDE RECORDS SUMMARY | ~2019-09-30 | XMS | Encounter Summary ---
Demographics + + + | Address | [address] | | | [place] [address] | + + + | Home Phone [...] Team Providers + +------+ + | Care Cut Plug Packer Name | Role | Phone | [...] Services | Therapy | S/P | C, MOBILE SOLUTIONS ARCHITECT [address] | VALLEY | | | Required | | excisional | [address] | THERAPY 5489 | | | | | debridement | [address] [place] | [address] | | | | | Procedures | [place], [place] | [place] | | | | | PT | [address] | [address] | | | | | | Phone: | Phone: | | | | | | [phone] | [phone] | | | | | | Fax: | Fax: | | | | | | [phone] | [phone] | + + + + + + [...] | | | [place] | [address] | | | | | [address] | [phone] | | | | | [phone] | | | +--------+---------+ + + + [...] | : 1990 | Medical Record Number:[id number] | Author: Jose Francisco Maolne DC [employer] SOL[employer] ARCHITECT-C | Date of Encounter: 04/30/2019 Surgeon: Inocencio Noriega MD History of present illness Andrea Suh is a 29 y.o. female that follows up in the office 4 weeks status post r ight extensor carpi ulnaris tenosynovectomy, reporting no complications with her recovery ot her than a loose cast that was applied by the [facility] when she presented to them wi [...] cancer Maternal Grandmother Heart attack Maternal Aunt [place] Social History Tobacco Use Smoking status: Never [...] their vital signs recorded by my human resources executive assistant today, a s found in this chart note. Electronically signed by: MOHSEN Martinez 04/30/2019 at 13:10 Note: Part of this report was transcribed using voice recognition software. Every effort wa s made to ensure accuracy. However, inadvertent computerized farm technician errors may be pre sent. CC: Erika [...] | | | | | [place] [address] | | | | | | [phone] | | | | | | | | +--------+ + + + + | 10/30/ | Office | Primary Care | Erika Ernst, | | | 2019 | Visit | | DO [address] | | | | | | [place] [address] | | | | | | [phone] | | | | | | | [...] [place] | | | | | | [address] | | | | | | [phone] | | | | | | | | +--------+ + + + + | 02/09/ | Office | Neurology | Dhara, | | | 2019 | Visit | | Cody, MOBILE SOLUTIONS ARCHITECT [address] | | | | | | [address]TH [facility], | | | | | | [place] [address] | | | | | | [phone] | | | | | | | [...]
--- OUTSIDE RECORDS SUMMARY | ~2019-09-30 | XMS | Encounter Summary ---
Demographics + + + | Address | [address] | | | [place] [address] | + + + | Home Phone [...] Providers + +------+ + | Care Line Leader Name | Role | Phone | [...] | | | | | tenosynoviti | [address] | [place], | | | | | s (de | [place], [place] | [place] [address] | | | | | quervain) | [address] | Phone: | | | | | Pain in | Phone: | [phone] | | | | | right wrist | [phone] | Fax: | | | | | Procedures | Fax: | [phone] | | | | | OT TREAT | [phone] | | +--------+--------+ + + + + Encounter Details +--------+ + + + + | Date | Type | Department | Care Team | Description | +--------+ + + + + | 11/21/ | Hospital | [place] [facility] | Jeffrey Gandhi, | Radial styloid | | 2019 | Encounter | HOSPITAL THERAPY OT | [address] | tenosynovitis | | | | [address] [place] | [place] [address] | (Primary Dx); Right | | | | [place], [place] | [phone] | wrist pain | | | | [address] | | | | | | [phone] | Michela Azevedo, | | | | [...] might be different f rom the original. [facility] THERAPY OT [address] [place] [address] Occupational Therapy Daily Treatment Note Date: 11/21/2018 [...] so re. She reports that states the clinical documentation improvement specialist strengthening performed in therapy is fine but she h as limitation on how many hrs per day she can perform sustained gripping. A: Tx session focu sed on continued IASTM as well as gentle progressions in clinical documentation improvement specialist and wrist strengthening with p t tolerating with mild soreness. Progressed from yellow to pink tputty today. Isometrics add ed to HEP which pt tolerated well in clinic. Next Visit: check response to isometrics and pink tputty from last visit Patient/Caregiver Education Learner: Patient Readiness: Acceptance Method: Explanation Response: Verbalizes Understanding Comment: HEP additions Interventions HEP : Increased resistance with clinical documentation improvement specialist strengthening to pink tputty, added submaximal 4 [...] WBing strengthening, 4 way wrist isometrics and clinical documentation improvement specialist strengthening with pink t putty OT MANUAL [...] but continues to have right wrist, clinical documentation improvement specialist and pinch weakness and significant pain (3 [...] 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, and clinical documentation improvement specialist and pinch weakness in the right [...] | | | | | [place] [address] | | | | | | [phone] | | | | | | | | +--------+ + + + + | 10/30/ | Office | Primary Care | Erika Ernst, | | | 2019 | Visit | | DO [address] | | | | | | [place] [address] | | | | | | [phone] | | | | | | | [...] [place] | | | | | | [address] | | | | | | [phone] | | | | | | | | +--------+ + + + + | 02/09/ | Office | Neurology | Dhara, | | | 2019 | Visit | | DWAINE Ross [address] | | | [address] [place], | | | | | | [place] [address] | | | | | | [phone] | | | | | | | | +--------+ + + + + documented as of this encounter Visit Diagnoses + + | Diagnosis | + + | Radial styloid tenosynovitis - Primary | + + | Right wrist pain Pain in joint, forearm | + + documented in this encounter"
--- OUTSIDE RECORDS SUMMARY | ~2019-09-30 | XMS | Encounter Summary ---
Demographics + + + | Address | [address] | | | [place] [address] | + + + | Home Phone [...] Team Providers + +------+ + | Care Letterpress Setter Name | Role | Phone | + +------+ + PCP | Unavailable | + +------+ + Encounter Details +--------+ + + + + | Date | Type | Department | Care Team | Description | +--------+ + + + + | 12/02/ | [facility] | Megan Duffy | | | 2016 | Encounter | HOSPITAL EMERGENCY | [address] | | | | | [address] [place] | | | | | [place] | [address] | | | | | [address] | [phone] | | | | | [phone] | | | +--------+ + + + [...] | | | | | [place] [address] | | | | | | [phone] | | | | | | | | +--------+ + + + + | 10/30/ | Office | Primary Care | Erika Ernst, | | | 2019 | Visit | | DO [address] | | | | | | [place] [address] | | | | | | [phone] | | | | | | | [...] [place] | | | | | | [address] | | | | | | [phone] | | | | | | | | +--------+ + + + + | 02/09/ | Office | Neurology | Dhara, | | | 2019 | Visit | | Cody, LIGHT ARMORED VEHICLE OFFICER [address] | | | | | | [address] [facility], | | | | | | [place] [address] | | | | | | [phone] | | | | | | | [...]
--- OUTSIDE RECORDS SUMMARY | ~2019-09-30 | XMS | Encounter Summary ---
Demographics + + + | Address | [address] | | | [place] [address] | + + + | Home Phone [...] Team Providers + +------+ + | Care Revenue Accountant Name | Role | Phone | + +------+ + PCP | Unavailable | + +------+ + Encounter Details +--------+ + + + + | Date | Type | Department | Care Team | Description | +--------+ + + + + | 07/23/ | Hospital | [place] [facility] | Sahil, | | | 2014 | Encounter | HOSPITAL THERAPY PT | Eloian Du MD | | | | | [address] | [address] | | | | | [place] | [place] | | | | | [address] | [address] | | | | | [phone] | [phone] | | | | | | | [...] | | | | | [place] [address] | | | | | | [phone] | | | | | | | | +--------+ + + + + | 10/30/ | Office | Primary Care | Erika Ernst, | | | 2019 | Visit | | DO [address] | | | | | | [place] [address] | | | | | | [phone] | | | | | | | [...] [place] | | | | | | [address] | | | | | | [phone] | | | | | | | | +--------+ + + + + | 02/09/ | Office | Neurology | Dhara, | | | 2020 | Visit | | DWAINE Ross [address] | | | [address] [place], | | | | | | [place] [address] | | | | | | [phone] | | | | | | | | +--------+ + + + + documented as of this encounter Visit Diagnoses Not on filedocumented in this encounter"
--- OUTSIDE RECORDS SUMMARY | ~2019-09-30 | XMS | Encounter Summary ---
Demographics + + + | Address | [address] | | | [place] [address] | + + + | Home Phone [...] Team Providers + +------+ + | Care Beater And Pulper Feeder Name | Role | Phone | [...] HOSPITAL ORTHOPEDIC | MD [address] | [facility]) | | | | [address] [place] | [address] [place] | | | | | [place], [place] | [place] [address] | | | | | [address] | [phone] | | | | | [phone] | | | +--------+ + + + [...] Visit | | DO [address] [place] | | | | | | [place] [address] | | | | | | [phone] | | | | | | | | +--------+ + + + + | 10/30/ | Office | Primary Care | Erika Ernst, | | | 2019 | Visit | | DO [address] [place] | | | | | | [place] [address] | | | | | | [phone] | | | | | | | [...] [place] | | | | | | [address] | | | | | | [phone] | | | | | | | | +--------+ + + + + | 02/09/ | Office | Neurology | Dhara, | | | 2019 | Visit | | DWAINE Ross [address] | | | [address] [place], | | | | | | [place] [address] | | | | | | [phone] | | | | | | | | +--------+ + + + + documented as of this encounter Visit Diagnoses Not on filedocumented in this encounter"
--- OUTSIDE RECORDS SUMMARY | ~2019-09-30 | XMS | Encounter Summary ---
Demographics + + + | Address | [address] | | | [place] [address] | + + + | Home Phone [...] Providers + +------+ + | Care Clinical Laboratory Aide Name | Role | Phone | [...] | [facility] | [place] [address] | | | | | [address] [place], | [phone] | | | | | [place] [address] | | | | | | [phone] | | | +--------+ + + + [...] | | | | | [place] [address] | | | | | | [phone] | | | | | | | | +--------+ + + + + | 10/30/ | Office | Primary Care | Erika Ernst, | | | 2019 | Visit | | DO [address] | | | | | | [place] [address] | | | | | | [phone] | | | | | | | [...] [place] | | | | | | [address] | | | | | | [phone] | | | | | | | | +--------+ + + + + | 02/09/ | Office | Neurology | Dhara, | | | 2020 | Visit | | [address]WAINE Ross [address] | | [address] [place], | | | | | | [place] [address] | | | | | | [phone] | | | | | | | | +--------+ + + + + documented as of this encounter Visit Diagnoses Not on filedocumented in this encounter"
--- OUTSIDE RECORDS SUMMARY | ~2019-09-30 | XMS | Encounter Summary ---
Demographics + + + | Address | [address] | | | [place] [address] | + + + | Home Phone [...] Providers + +------+ + | Care Supervisor Grain And Yeast Plants Name | Role | Phone | + [...] | | [address] [place], | [place], [place] | | | | | [place] [address] | [address] | | | | | [phone] | [phone] | | | | | | | [...] | | | | | [place] [address] | | | | | | [phone] | | | | | | | | +--------+ + + + + | 10/30/ | Office | Primary Care | Erika Ernst, | | | 2019 | Visit | | DO [address] | | | | | | [place] [address] | | | | | | [phone] | | | | | | | [...] [place] | | | | | | [address] | | | | | | [phone] | | | | | | | | +--------+ + + + + | 02/09/ | Office | Neurology | Dhara, | | | 2020 | Visit | | [address] | | | [address] [place], | | | | | | [place] [address] | | | | | | [phone] | | | | | | | | +--------+ + + + + documented as of this encounter Visit Diagnoses Not on filedocumented in this encounter"
--- OUTSIDE RECORDS SUMMARY | ~2019-09-30 | XMS | Encounter Summary ---
Demographics + + + | Address | [address] | | | [place] [address] | + + + | Home Phone [...] Team Providers + +------+ + | Care Vineyardist Name | Role | Phone | + +------+ + PCP | Unavailable | + +------+ + Encounter Details +--------+ + + + + | Date | Type | Department | Care Team | Description | +--------+ + + + + | 11/29/ | [facility] | [facility] | Conversion | | | 2012 | Encounter | [facility] | Transaction, | | | | | [facility] [address] | Provider Unknown | | | | | [address] [facility], | | | | | | [place] [address] | | | | | | [phone] | | | +--------+ + + + [...] | | | | | [place] [address] | | | | | | [phone] | | | | | | | | +--------+ + + + + | 10/30/ | Office | Primary Care | Erika Ernst, | | | 2019 | Visit | | DO [address] [place] | | | | | | [place] [address] | | | | | | [phone] | | | | | | | [...] [place] | | | | | | [address] | | | | | | [phone] | | | | | | | | +--------+ + + + + | 02/09/ | Office | Neurology | Dhara, | | | 2019 | Visit | | [address]WAINE Ross [address] | | | [address] [place], | | | | | | [place] [address] | | | | | | [phone] | | | | | | | | +--------+ + + + + documented as of this encounter Visit Diagnoses Not on filedocumented in this encounter"
--- OUTSIDE RECORDS SUMMARY | ~2019-09-30 | XMS | Encounter Summary ---
Demographics + + + | Address | [address] | | | [place] [address] | + + + | Home Phone [...] Team Providers + +------+ + | Care Quartz Cutter Name | Role | Phone | [...] pt | | 2019 | | [facility] | [address] [place] | on 09-10-19 - Pt | | | | [facility] [address] | [place] [address] | needs to know when | | | | [address] [place], | [phone] | she's due for lab | | | | [place] [address] | | draw) | | | | [phone] | | | +--------+ + + + [...] | | | | | [place] [address] | | | | | | [phone] | | | | | | | | +--------+ + + + + | 10/30/ | Office | Primary Care | Erika Ernst, | | | 2019 | Visit | | DO [address] [place] | | | | | | [place] [address] | | | | | | [phone] | | | | | | | [...] [place] | | | | | | [address] | | | | | | [phone] | | | | | | | | +--------+ + + + + | 02/09/ | Office | Neurology | Dhara, | | | 2019 | Visit | | DWAINE Ross [address] | | [address] [place], | | | | | | [place] [address] | | | | | | [phone] | | | | | | | | +--------+ + + + + documented as of this encounter Visit Diagnoses Not on filedocumented in this encounter"
--- OUTSIDE RECORDS SUMMARY | ~2019-09-30 | XMS | Encounter Summary ---
Demographics + + + | Address | [address] | | | [place] [address] | + + + | Home Phone [...] + +------+ + | Care Human Resources Training Manager Name | Role | Phone [...] [place] | | | | | | [address] | | | | | | [phone] | | | +--------+ + + + [...] | | | | | [place] [address] | | | | | | [phone] | | | | | | | | +--------+ + + + + | 10/30/ | Office | Primary Care | Erika Ernst, | | | 2019 | Visit | | DO [address] | | | | | | [place] [address] | | | | | | [phone] | | | | | | | [...] [place] | | | | | | [address] | | | | | | [phone] | | | | | | | | +--------+ + + + + | 02/09/ | Office | Neurology | Dhara, | | | 2019 | Visit | | [address]WAINE Ross [address] | | | [address] [place], | | | | | | [place] [address] | | | | | | [phone] | | | | | | | | +--------+ + + + + documented as of this encounter Visit Diagnoses Not on filedocumented in this encounter"
--- OUTSIDE RECORDS SUMMARY | ~2019-09-30 | XMS | Encounter Summary ---
Demographics + + + | Address | [address] | | | [place] [address] | + + + | Home Phone [...] Providers + +------+ + | Care Cover Inspector Name | Role | Phone | [...] | | | [facility] [address] | [facility] [place] [address] | | | | | [address] [facility], | [phone] | | | | | [place] [address] | | | | | | [phone] | | | +--------+ + + + [...] | | | | | [place] [address] | | | | | | [phone] | | | | | | | | +--------+ + + + + | 10/30/ | Office | Primary Care | Erika Ernst, | | | 2019 | Visit | | DO [address] [place] | | | | | | [place] [address] | | | | | | [phone] | | | | | | | [...] [place] | | | | | | [address] | | | | | | [phone] | | | | | | | | +--------+ + + + + | 02/09/ | Office | Neurology | Dhara, | | | 2020 | Visit | | [address] | | | | [address] [place], | | | | | | [place] [address] | | | | | | [phone] | | | | | | | | +--------+ + + + + documented as of this encounter Visit Diagnoses Not on filedocumented in this encounter"
--- OUTSIDE RECORDS SUMMARY | ~2019-09-30 | XMS | Encounter Summary ---
Demographics + + + | Address | [address] | | | [place] [address] | + + + | Home Phone [...] | [facility] | | [...] Providers + +------+ + | Care Meter Installer And Remover Name | Role | Phone | + [...] | | 2019 | | [facility] | DO [address] | | | | | [facility] [address] | [place] [address] | | | | | [address] [place], | [phone] | | | | | [place] [address] | | | | | | [phone] | | | +--------+ + + + [...] | | | | | [place] [address] | | | | | | [phone] | | | | | | | | +--------+ + + + + | 10/30/ | Office | Primary Care | Erika Ernst, | | | 2019 | Visit | | DO [address] | | | | | | [place] [address] | | | | | | [phone] | | | | | | | [...] [place] | | | | | | [address] | | | | | | [phone] | | | | | | | | +--------+ + + + + | 02/09/ | Office | Neurology | Dhara, | | | 2020 | Visit | | [address]WA[address] | | | | [address] [place], | | | | | | [place] [address] | | | | | | [phone] | | | | | | | | +--------+ + + + + documented as of this encounter Visit Diagnoses Not on filedocumented in this encounter"
--- OUTSIDE RECORDS SUMMARY | ~2019-09-30 | XMS | Encounter Summary ---
Demographics + + + | Address | [address] | | | [place] [address] | + + + | Home Phone [...] Team Providers + +------+ + | Care Crossbow Maker Name | Role | Phone | [...] | [place], [place] | [place] [address] | | | | | [address] | [phone] | | | | | [phone] | | | +--------+ + + + [...] | | | | | [place] [address] | | | | | | [phone] | | | | | | | | +--------+ + + + + | 10/30/ | Office | Primary Care | Erika Ernst, | | | 2019 | Visit | | DO [address] [place] | | | | | | [place] [address] | | | | | | [phone] | | | | | | | [...] [place] | | | | | | [address] | | | | | | [phone] | | | | | | | | +--------+ + + + + | 02/09/ | Office | Neurology | Dhara, | | | 2020 | Visit | | [address] | | | | [address] [place], | | | | | | [place] [address] | | | | | | [phone] | | | | | | | | +--------+ + + + + documented as of this encounter Visit Diagnoses Not on filedocumented in this encounter"
--- OUTSIDE RECORDS SUMMARY | ~2019-09-30 | XMS | Encounter Summary ---
Demographics + + + | Address | [address] | | | [place] [address] | + + + | Home Phone [...] Team Providers + +------+ + | Care Safe Technician Name | Role | Phone | [...] | | | [address] | [place], [place] | | | | | [place], [place] | [address] | | | | | [address] | [phone] | | | | | [phone] | | | +--------+ + + + [...] | | | | | [place] [address] | | | | | | [phone] | | | | | | | | +--------+ + + + + | 10/30/ | Office | Primary Care | Erika Ernst, | | | 2019 | Visit | | DO [address] [place] | | | | | | [place] [address] | | | | | | [phone] | | | | | | | [...] [place] | | | | | | [address] | | | | | | [phone] | | | | | | | | +--------+ + + + + | 02/09/ | Office | Neurology | Dhara, | | | 2020 | Visit | | [address] | | | | [address] [place], | | | | | | [place] [address] | | | | | | [phone] | | | | | | | | +--------+ + + + + documented as of this encounter Visit Diagnoses Not on filedocumented in this encounter"
--- OUTSIDE RECORDS SUMMARY | ~2019-09-30 | XMS | Encounter Summary ---
Demographics + + + | Address | [address] | | | [place] [address] | + + + | Home Phone [...] Team Providers + +------+ + | Care Planting Machine Crewman Name | Role | Phone | + +------+ + | Erika Ernst DO | PCP | | + +------+ + Reason for Visit +---------+ + | Reason | Comments | +---------+ + | Anxiety | | +---------+ + Encounter Details +--------+---------+ + + + | Date | Type | Department | Care Team | Description | +--------+---------+ + + + | 06/08/ | Office | [facility] | Erika Ernst, | Essential | | 2018 | Visit | [facility] | DO [address] | hypertension | | | | [facility]ICAL CLIN[facility] | [place] [address] | (Primary Dx); | | | | [address] [place], | [phone] | Anxiety; PTSD | | | | [place] [address] | | (post-traumatic | | | | [phone] | | stress disorder) | +--------+---------+ + [...] + + + | Blood Pressure | 148/80 | 06/08/2018 1:37 PM | | | | | PDT | | + + + + + | Pulse | 80 | 06/08/2018 1:37 PM | | | | | PDT | | + + + + + | Temperature | - | - | | + + + + + | Respiratory Rate | 20 | 06/08/2018 1:37 PM | | | | | PDT | | + + + + + | Oxygen Saturation | 98% | 06/08/2018 1:37 PM | | | | | PDT | | + + + + + | Inhaled Oxygen | - | - | | | Concentration | | | | + + + + + | Weight | 166.5 kg (367 lb) | 06/08/2018 1:37 PM | | | | | PDT | | + + + + + | Height | 167.6 cm (5' 6") | 06/08/2018 1:37 PM | | | | | PDT | | + + + + + | Body Mass Index | 59.24 | 06/08/2018 1:37 PM | | | | | PDT | | + + + + + documented in this encounter Progress Notes Erika Ernst DO - 06/08/2018 1:30 PM PDTFormatting of this note might be different fro m the original. Subjective: Patient ID: Andrea Suh is a 28 y.o. female. Here to FU on anxiety and PTSD. She does have appointment with Radha Lamb for therapy st art the . She states the buspar makes her a little too tired during the day though le ss anxious but worked well at HS and helped her sleep well. We had ordered 5 mg TID. Instea d we will change to 5 mg in AM only and then 10 mg at HS and she understands this plan to tr y. BP up a little and we will continue to monitor. She continues to work on wt loss that shirley l help the BP. Review of Systems Constitutional: Negative. Respiratory: Negative. Cardiovascular: Negative. Gastrointestinal: Negative. Neurological: Negative. Psychiatric/Behavioral: As above Social History Social History Marital status: [...] on file Outpatient Encounter Prescriptions as of 06/08/2018 Medication Sig Dispense Refill amLODIPine (NORVASC) 5 mg tablet Take 1 tablet by mouth Daily. 30 tablet 11 beclomethasone (QVAR) 80 mcg/puff inhaler Inhale 1 puff into the lungs 2 times daily. 1 Inhaler 11 busPIRone (BUSPAR) 5 mg tablet Take one 5mg tab in the AM and two 5mg tabs to equal 10 mg in the PM 90 tablet 5 [DISCONTINUED] busPIRone (BUSPAR) 5 mg tablet Take 1 tablet by mouth 3 times daily. 30 tablet 0 Cholecalciferol (VITAMIN D3) 14669 units TABS Take 1 tablet by mouth [...] facility-administered encounter medications on file as of 06/08/2018. Allergies Allergen Reactions Latex Rash Hydrocodone Hives Uncoded Nonscreenable Allergen Other (See Comments) Other reaction(s): Proclivity to C-diff with certain antibiotics Adhesive & Tape Rash Objective: BP 148/80 | Pulse 80 | Resp 20 | Ht 1.676 m (5' 6") | [...] No respiratory distress. Musculoskeletal: She exhibits no edema. Neurological: She is alert and oriented to person, place, and time. No cranial nerve defici t. Skin: Skin is warm and dry. Psychiatric: She has a normal mood and affect. Her behavior is normal. Judgment and thought content normal. Assessment: 1. Essential hypertension 2. Anxiety 3. PTSD (post-traumatic stress disorder) Plan: Continue to monitor HTN. Change Buspar to 5 mg in AM and 10 mg in PM and FU in 2 weeks. She will keep appointment with mental health therapist documented in this en counter Plan of Treatment +--------+ + + + + | Date | Type | Specialty | Care Team | Description | +--------+ + + + + | 10/01/ | Office | Primary Care | Erika Ernst, | | | 2018 | Visit | | DO [address] | | | | | | [place] [address] | | | | | | [phone] | | | | | | | | +--------+ + + + + | 10/30/ | Office | Primary Care | Erika Ernst, | | | 2019 | Visit | | DO [address] [place] | | | | | | [place] [address] | | | | | | [phone] | | | | | | | [...] [place] | | | | | | [address] | | | | | | [phone] | | | | | | | | +--------+ + + + + | 02/09/ | Office | Neurology | Dhara, | | | 2019 | Visit | | [address]WA[address] | | | | | | [address] [place], | | | | | | [place] [address] | | | | | | [phone] | | | | | | | | +--------+ + + + + documented as of this encounter Visit Diagnoses + + | Diagnosis | + + | Essential hypertension - Primary Unspecified essential hypertension | + + | Anxiety Anxiety state, unspecified | + + | PTSD (post-traumatic stress disorder) Posttraumatic stress disorder | + + documented in this encounter
--- OUTSIDE RECORDS SUMMARY | ~2019-09-30 | XMS | Encounter Summary ---
Demographics + + + | Address | [address] | | | [place] [address] | + + + | Home Phone [...] Providers + +------+ + | Care Site Inspector Name | Role | Phone | [...] | Results | | 2019 | | [facility] | DO [address] | | | | | MEDICAL CLINIC [address] | [place] [address] | | | | | [address] [place], | [phone] | | | | | [place] [address] | | | | | | [phone] | | | +--------+ + + + [...] 2018 | Visit | | DO [address] [place] [address] | | | | | | [place] [address] | | | | | | [phone] | | | | | | | | +--------+ + + + + | 10/30/ | Office | Primary Care | Erika Ernst, | | | 2019 | Visit | | DO [address] [place] | | | | | | [place] [address] | | | | | | [phone] | | | | | | | [...] | | | | | F [place], [place] | | | | | | [address] | | | | | | [phone] | | | | | | | | +--------+ + + + + | 02/09/ | Office | Neurology | Dhara, | | | 2019 | Visit | | [address]WA[address] Ross [address] | | | | | [address] [place], | | | | | | [place] [address] | | | | | | [phone] | | | | | | | | +--------+ + + + + documented as of this encounter Visit Diagnoses Not on filedocumented in this encounter"
--- OUTSIDE RECORDS SUMMARY | ~2019-09-30 | XMS | Encounter Summary ---
Demographics + + + | Address | [address] | | | [place] [address] | + + + | Home Phone [...] Team Providers + +------+ + | Care Delinquency Prevention Officer Name | Role | Phone | + +------+ + PCP | Unavailable | + +------+ + Encounter Details +--------+ + + + + | Date | Type | Department | Care Team | Description | +--------+ + + + + | [facility] Denise Mcgregor | | | [facility] | En[facility] | [facility] | G, HOME CARE LIA[facility] [address] | | | | | [facility]ICAL CL[facility] | [facility] [place] | | | | | [address] [facility], | [address] | | | | | [place] [address] | [phone] | | | | | [phone] | | | +--------+ + + + [...] | | | | | [place] [address] | | | | | | [phone] | | | | | | | | +--------+ + + + + | 10/30/ | Office | Primary Care | Erika Ernst, | | | 2019 | Visit | | DO [address] | | | | | | [place] [address] | | | | | | [phone] | | | | | | | [...] [place] | | | | | | [address] | | | | | | [phone] | | | | | | | | +--------+ + + + + | 02/09/ | Office | Neurology | Dhara, | | | 2020 | Visit | | [address] | | | | | | [address] [place], | | | | | | [place] [address] | | | | | | [phone] | | | | | | | | +--------+ + + + + documented as of this encounter Visit Diagnoses Not on filedocumented in this encounter"
--- OUTSIDE RECORDS SUMMARY | ~2019-09-30 | XMS | Encounter Summary ---
Demographics + + + | Address | [address] | | | [place] [address] | + + + | Home Phone [...] Team Providers + +------+ + | Care Transfer Professor Name | Role | Phone | [...] | | [place], [place] | [place] [address] | | | | | [address] | [phone] | | | | | [phone] | | | +--------+ + + + [...] | | | | | [place] [address] | | | | | | [phone] | | | | | | | | +--------+ + + + + | 10/30/ | Office | Primary Care | Erika Ernst, | | | 2019 | Visit | | DO [address] | | | | | | [place] [address] | | | | | | [phone] | | | | | | | [...] [place] | | | | | | [address] | | | | | | [phone] | | | | | | | | +--------+ + + + + | 02/09/ | Office | Neurology | Dhara, | | | 2019 | Visit | | [address] | | | | | | [address] [place], | | | | | | [place] [address] | | | | | | [phone] | | | | | | | | +--------+ + + + + documented as of this encounter Visit Diagnoses Not on filedocumented in this encounter"
--- OUTSIDE RECORDS SUMMARY | ~2019-09-30 | XMS | Encounter Summary ---
Demographics + + + | Address | [address] | | | [place] [address] | + + + | Home Phone [...] Organization | [facility] | | [...] Team Providers + +------+ + | Care Warehouse Processor Name | Role | Phone | [...] of | | 2019 | Visit | [facility] | MEDICAL ASSISTANT PER DIEM-SILK SCREEN PROCESSOR [address] | head and neck | | | | [facility] [address] | [address] | | | | | [address] [place], | [place] [address] | | | | | [place] [address] | [phone] | | | | | [phone] | | | | | | | Brandi Pitts, | | | | | | DO [address] | | | | | | [place] [address] | | | | | | [phone] | | | | | | | [...] present. Entered by Marissa Bautista CNA 2, [facility], acting as scribe for Dr. Hong DO The documentation recorded by the scribe accurately reflects the service I personally perfo rmed and the decisions made by me. Electronically signed by: Brandi Pitts DO 04/17/2019 7:54 Note: Part of this report was transcribed using voice recognition software. Every effort wa s made to ensure accuracy. However, inadvertent computerized cath laboratory technician errors may be pre sent. documented [...] | | | | | | [place] [address] | | | | | | [phone] | | | | | | | | +--------+ + + + + | 10/30/ | Office | Primary Care | Eirka Ernst, | | | 2019 | Visit | | DO [address] [place] | | | | | | [place] [address] | | | | | | [phone] | | | | | | | [...] [place] | | | | | | [address] | | | | | | [phone] | | | | | | | | +--------+ + + + + | 02/09/ | Office | Neurology | Dhara, | | | 2019 | Visit | | [address] | | | | | | [address] [place], | | | | | | [place] [address] | | | | | | [phone] | | | | | | | | +--------+ + + + + documented as of this encounter Visit Diagnoses + + | Diagnosis | + + | Lymphadenopathy of head and neck | + + documented in this encounter"
--- OUTSIDE RECORDS SUMMARY | ~2019-09-30 | XMS | Encounter Summary ---
Demographics + + + | Address | [address] | | | [place] [address] | + + + | Home Phone [...] Providers + +------+ + | Care Senior Qa Tester Name | Role | Phone | [...] 08/13/ | Telephone | [place] [facility] | KleverErika epps, | Other (FYI) | | 2018 | | [facility] | DO [address] | | | | | [facility] [address] | [place] [address] | | | | | [address] [place], | [phone] | | | | | [place] [address] | | | | | | [phone] | | | +--------+ + + + [...] [address] | | | | | | [phone] | | | | | | | | +--------+ + + + + | 10/30/ | Office | Primary Care | Erika Ernst, | | | 2019 | Visit | | DO [address] [place] | | | | | | [place] [address] | | | | | | [phone] | | | | | | | [...] [place] | | | | | | [address] | | | | | | [phone] | | | | | | | | +--------+ + + + + | 02/09/ | Office | Neurology | Dhara, | | | 2019 | Visit | | [address] | | | | | | [address] [place], | | | | | | [place] [address] | | | | | | [phone] | | | | | | | | +--------+ + + + + documented as of this encounter Visit Diagnoses Not on filedocumented in this encounter"
--- OUTSIDE RECORDS SUMMARY | ~2019-09-30 | XMS | Encounter Summary ---
Demographics + + + | Address | [address] | | | [place] [address] | + + + | Home Phone [...] Team Providers + +------+ + | Care Fabrication And Layout Craftsman Name | Role | Phone | + [...] Essential | | 2018 | Visit | [facility] | DO [address] | hypertension | | | | MEDICAL CLINIC [address] | [place] [address] | (Primary Dx); Left | | | | [address] [place], | [phone] | acute otitis media; | | | | [place] [address] | | Increased risk of | | | | [phone] | | breast cancer; | | | [...] (BMI) of 50.0 to 59.9 in adult ([facility]) Plan: Continue current BP med's and monitor. [...] 2018 | Visit | | DO [address] [place] [address] | | | | | | [facility] [place] [address] | | | | | | [phone] | | | | | | | | +--------+ + + + + | 10/30/ | Office | Primary Care | Erika Ernst, | | | 2019 | Visit | | DO [address] [place] | | | | | | [place] [address] | | | | | | [phone] | | | | | | | [...] [place] | | | | | | [address] | | | | | | [phone] | | | | | | | | +--------+ + + + + | 02/09/ | Office | Neurology | Dhara, | | | 2019 | Visit | | [address]WAINE Ross [address] | | | | | | [address] [place], | | | | | | [place] [address] | | | | | | [phone] | | | | | | | [...]
--- OUTSIDE RECORDS SUMMARY | ~2019-09-30 | XMS | Encounter Summary ---
Demographics + + + | Address | [address] | | | [place] [address] | + + + | Home Phone [...] Providers + +------+ + | Care Application Release Manager Name | Role | Phone | + +------+ + PCP | Unavailable | + +------+ + Encounter Details +--------+ + + + + | Date | Type | Department | Care Team | Description | +--------+ + + + + | 11/27/ | [facility] | Bo Bhat | | | 2017 | Encounter | [facility] | [address] | | | | | W[facility]IN [facility] [address] | [address] [place], [place] | | | | | [address]TH [facility], | [address] | | | | | [place] [address] | | | | | | [phone] | | | +--------+ + + + [...] | | | | | [place] [address] | | | | | | [phone] | | | | | | | | +--------+ + + + + | 10/30/ | Office | Primary Care | Erika Ernst, | | | 2019 | Visit | | DO [address] [place] | | | | | | [place] [address] | | | | | | [phone] | | | | | | | [...] [place] | | | | | | [address] | | | | | | [phone] | | | | | | | | +--------+ + + + + | 02/09/ | Office | Neurology | Dhara, | | | 2019 | Visit | | [address]WA[address] | | | | | | [address] [place], | | | | | | [place] [address] | | | | | | [phone] | | | | | | | | +--------+ + + + + documented as of this encounter Visit Diagnoses Not on filedocumented in this encounter"
--- OUTSIDE RECORDS SUMMARY | ~2019-09-30 | XMS | Encounter Summary ---
Demographics + + + | Address | [address] | | | [place] [address] | + + + | Home Phone [...] Team Providers + +------+ + | Care Lithopress Operator Name | Role | Phone | [...] | [address] [place] | 4th [facility], | | | | | [place], [place] | [place] [address] | | | | | [address] | [phone] | | | | | [phone] | | | +--------+ + + + [...] [address] | | | | | | [phone] | | | | | | | | +--------+ + + + + | 10/30/ | Office | Primary Care | Erika Ernst, | | | 2019 | Visit | | DO [address] [place] | | | | | | [place] [address] | | | | | | [phone] | | | | | | | [...] [place] | | | | | | [address] | | | | | | [phone] | | | | | | | | +--------+ + + + + | 02/09/ | Office | Neurology | Dhara, | | | 2019 | Visit | | [address] | | | | | | [address] [place], | | | | | | [place] [address] | | | | | | [phone] | | | | | | | | +--------+ + + + + documented as of this encounter Visit Diagnoses Not on filedocumented in this encounter"
--- OUTSIDE RECORDS SUMMARY | ~2019-09-30 | XMS | Encounter Summary ---
Demographics + + + | Address | [address] | | | [place] [address] | + + + | Home Phone [...] Providers + +------+ + | Care Men'S And Boys' Clothing Salesperson Name | Role | Phone | + +------+ + PCP | Unavailable | + +------+ + Encounter Details +--------+ + + + + | Date | Type | Department | Care Team | Description | +--------+ + + + + | 04/21/ | [facility] | [facility] | Travis Malone FNP | | | 2014 | Encounter | [facility] | [address] | | | | | MEDICAL CLINIC [address] | [place] | | | | | [facility], | [address] | | | | | [place] [address] | [phone] | | | | | [phone] | | | +--------+ + + + [...] | | | | | [place] [address] | | | | | | [phone] | | | | | | | | +--------+ + + + + | 10/30/ | Office | Primary Care | Erika Ernst, | | | 2019 | Visit | | DO [address] [place] | | | | | | [place] [address] | | | | | | [phone] | | | | | | | [...] [place] | | | | | | [address] | | | | | | [phone] | | | | | | | | +--------+ + + + + | 02/09/ | Office | Neurology | Dhara, | | | 2020 | Visit | | [address] | | | | | | [address] [place], | | | | | | [place] [address] | | | | | | [phone] | | | | | | | | +--------+ + + + + documented as of this encounter Visit Diagnoses Not on filedocumented in this encounter"
--- OUTSIDE RECORDS SUMMARY | ~2019-09-30 | XMS | Encounter Summary ---
Demographics + + + | Address | [address] | | | [place] [address] | + + + | Home Phone [...] Team Providers + +------+ + | Care Reactor Service Operator Name | Role | Phone | [...] Medication Follow-up | | 2019 | | [facility] | DO [address] | (Trazadone) | | | | MEDICAL CLINIC [address] | [facility] [address] | | | | | [address] [facility], | [phone] | | | | | [place] [address] | | | | | | [phone] | | | +--------+ + + + [...] | | | | | [place] [address] | | | | | | [phone] | | | | | | | | +--------+ + + + + | 10/30/ | Office | Primary Care | Erika Ernst, | | | 2019 | Visit | | DO [address] [place] | | | | | | [place] [address] | | | | | | [phone] | | | | | | | [...] [place] | | | | | | [address] | | | | | | [phone] | | | | | | | | +--------+ + + + + | 02/09/ | Office | Neurology | Dhara, | | | 2020 | Visit | | [address] | | | | | | [address] [place], | | | | | | [place] [address] | | | | | | [phone] | | | | | | | | +--------+ + + + + documented as of this encounter Visit Diagnoses Not on filedocumented in this encounter"
--- OUTSIDE RECORDS SUMMARY | ~2019-09-30 | XMS | Encounter Summary ---
Demographics + + + | Address | [address] | | | [place] [address] | + + + | Home Phone [...] Providers + +------+ + | Care Electric Well Logging Operator Name | Role | Phone | [...] | MRI Wrist | DR [place] | [address] | | | | | Right wo | [place], [place] | Phone: | | | | | Contrast | [address] | [phone] | | | | | | Phone: | Fax: | | | | | | [phone] | [phone] | | | | | | Fax: | | | | | | | [phone] | | +--------+--------+ + + + + [...] | MRI Wrist | DR [address] | [address] | | | | | Right wo | [place], [place] | Phone: | | | | | Contrast | [address] | [phone] | | | | | | Phone: | Fax: | | | | | | [phone] | [phone] | | | | | | Fax: | | | | | | | [phone] | | +--------+--------+ + + + + Encounter Details +--------+ + + + + | Date | Type | Department | Care Team | Description | +--------+ + + + + | 01/28/ | Hospital | [place] [facility] | Inocencio Noriega | Right wrist pain | | 2019 | Encounter | Hospital MRI [address] | MD Malcolm [address] | | | | | [place] [address] | [place] | | | | | [place] | [place] [address] | | | | | [address] | [phone] | | | | | [phone] | | | +--------+ + + + [...] | 11/26/19 | | | (VITAMIN D3) 81691 | mouth Once a week | tablet [...] | | | | | [place] [address] | | | | | | [phone] | | | | | | | | +--------+ + + + + | 10/30/ | Office | Primary Care | Erika Ernst, | | | 2019 | Visit | | DO [address] [place] | | | | | | [place] [address] | | | | | | [phone] | | | | | | | [...] [place] | | | | | | [address] | | | | | | [phone] | | | | | | | | +--------+ + + + + | 02/09/ | Office | Neurology | Dhara, | | | 2019 | Visit | | [address]WA[address] | | | | | | [address] [place], | | | | | | [place] [address] | | | | | | [phone] | | | | | | | | +--------+ + + + + documented as of this encounter Procedures + +--------+ + + + | Procedure Name | Priori | Date/Time | Associated Diagnosis | Comments | | | ty | | | | + +--------+ + + + | MRI WRIST RIGHT WO | Routin | 01/28/2019 | Right wrist pain | Results for this | | CONTRAST | e | 9:10 AM | | procedure are in the [...]
--- OUTSIDE RECORDS SUMMARY | ~2019-09-30 | XMS | Encounter Summary ---
Demographics + + + | Address | [address] | | | [place] [address] | + + + | Home Phone [...] Team Providers + +------+ + | Care Electrologist Name | Role | Phone | + [...] | | | [address] [place], | [address] | | | | | [place] [address] | | | | | | [phone] | | | +--------+ + + + [...] | | | | | [place] [address] | | | | | | [phone] | | | | | | | | +--------+ + + + + | 10/30/ | Office | Primary Care | Erika Ernst, | | | 2019 | Visit | | DO [address] | | | | | | [place] [address] | | | | | | [phone] | | | | | | | [...] [place] | | | | | | [address] | | | | | | [phone] | | | | | | | | +--------+ + + + + | 02/09/ | Office | Neurology | Dhara, | | | 2019 | Visit | | [address] | | | | | | [address] [place], | | | | | | [place] [address] | | | | | | [phone] | | | | | | | | +--------+ + + + + documented as of this encounter Visit Diagnoses Not on filedocumented in this encounter"
--- OUTSIDE RECORDS SUMMARY | ~2019-09-30 | XMS | Encounter Summary ---
Demographics + + + | Address | [address] | | | [place] [address] | + + + | Home Phone [...] Team Providers + +------+ + | Care Hazardous Materials Tanker Driver Name | Role | Phone | [...] (? re: | | 2017 | | [facility] | DO [address] | physical therapy) | | | | MEDICAL CLINIC [address] | [place] [address] | | | | | [address] [place], | [phone] | | | | | [place] [address] | | | | | | [phone] | | | +--------+ + + + [...] | | | | | [place] [address] | | | | | | [phone] | | | | | | | | +--------+ + + + + | 10/30/ | Office | Primary Care | Erika Ernst, | | | 2019 | Visit | | DO [address] | | | | | | [place] [address] | | | | | | [phone] | | | | | | | [...] [place] | | | | | | [address] | | | | | | [phone] | | | | | | | | +--------+ + + + + | 02/09/ | Office | Neurology | Dhara, | | | 2020 | Visit | | [address] | | | | | | [address] [place], | | | | | | [place] [address] | | | | | | [phone] | | | | | | | | +--------+ + + + + documented as of this encounter Visit Diagnoses Not on filedocumented in this encounter"
--- OUTSIDE RECORDS SUMMARY | ~2019-09-30 | XMS | Encounter Summary ---
Demographics + + + | Address | [address] | | | [place] [address] | + + + | Home Phone [...] Team Providers + +------+ + | Care Founder Chairman And Chief Creative Officer Name | Role | Phone | + +------+ + PCP | Unavailable | + +------+ + Encounter Details +--------+ + + + + | Date | Type | Department | Care Team | Description | +--------+ + + + + | 06/10/ | [facility] | Caro Zendejas | | | 2013 | Encounter | [facility] | [place], FACILITIES MAINTENANCE TECHNICIAN [address] | | | | | MEDICAL CLINIC [address] | [facility], [place] | | | | | [address] [facility], | [address] | | | | | [place] [address] | [phone] | | | | | [phone] | | | +--------+ + + + [...] | | | | | [place] [address] | | | | | | [phone] | | | | | | | | +--------+ + + + + | 10/30/ | Office | Primary Care | Erika Ernst, | | | 2019 | Visit | | DO [address] | | | | | | [place] [address] | | | | | | [phone] | | | | | | | [...] [place] | | | | | | [address] | | | | | | [phone] | | | | | | | | +--------+ + + + + | 02/09/ | Office | Neurology | Dhara, | | | 2020 | Visit | | DWAINE Ross [address] [place], | | | | | | [place] [address] | | | | | | [phone] | | | | | | | | +--------+ + + + + documented as of this encounter Visit Diagnoses Not on filedocumented in this encounter"
--- OUTSIDE RECORDS SUMMARY | ~2019-09-30 | XMS | Encounter Summary ---
Demographics + + + | Address | [address] | | | [place] [address] | + + + | Home Phone [...] Team Providers + +------+ + | Care Alternative Education Teacher Name | Role | Phone | [...] + + | 12/18/ | Telephone | [facility] | Erika Ernst, | Request For Medical | | 2019 | | [facility] | DO [address] | Records | | | | [facility] | [facility] [place] [address] | | | | | [address] [place], | [phone] | | | | | [place] [address] | | | | | | [phone] | | | +--------+ + + + [...] | | | | | [place] [address] | | | | | | [phone] | | | | | | | | +--------+ + + + + | 10/30/ | Office | Primary Care | Erika Ernst, | | | 2019 | Visit | | DO [address] | | | | | | [place] [address] | | | | | | [phone] | | | | | | | [...] [place] | | | | | | [address] | | | | | | [phone] | | | | | | | | +--------+ + + + + | 02/09/ | Office | Neurology | Dhara, | | | 2020 | Visit | | [address] | | | | | | [address] [place], | | | | | | [place] [address] | | | | | | [phone] | | | | | | | | +--------+ + + + + documented as of this encounter Visit Diagnoses Not on filedocumented in this encounter"
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
--- OUTSIDE RECORDS SUMMARY | ~2019-09-30 | XMS | Encounter Summary ---
Demographics + + + | Address | [address] | | | [place] [address] | + + + | Home Phone [...] Providers + +------+ + | Care Warehouse Stock Clerk Name | Role | Phone | + +------+ + PCP | Unavailable | + +------+ + Encounter Details +--------+ + + + + | Date | Type | Department | Care Team | Description | +--------+ + + + + | 01/17/ | [facility] | Julio Calderon | | | 2012 | Encounter | [facility] | MD [address] | | | | | [address] | [place], | | | | | [address] [place] | [place] [address] | | | | | [address] | [phone] | | | | | [phone] | | | +--------+ + + + [...] | | | | | [place] [address] | | | | | | [phone] | | | | | | | | +--------+ + + + + | 10/30/ | Office | Primary Care | Erika Ernst, | | | 2019 | Visit | | DO [address] | | | | | | [place] [address] | | | | | | [phone] | | | | | | | | +--------+ + + + + | 11/07/ | Appointment | Nutrition | Janel Webster | | | 2019 | | | [place] | | +--------+ + + + + | 11/28/ | Office | Otolaryngology | nAthony Alvarado MD | | 2019 | Visit | | [address] | | | | | | [place], [place] | | | | | | [address] | | | | | | [phone] | | | | | | | | +--------+ + + + + | 02/09/ | Office | Neurology | Dhara, | | | 2020 | Visit | | [address] | | | | | [address] [place], | | | | | | [place] [address] | | | | | | [phone] | | | | | | | | +--------+ + + + + documented as of this encounter Visit Diagnoses Not on filedocumented in this encounter"
--- OUTSIDE RECORDS SUMMARY | ~2019-09-30 | XMS | Encounter Summary ---
Demographics + + + | Address | [address] | | | [place] [address] | + + + | Home Phone [...] Team Providers + +------+ + | Care Ammunition Assembly Ii Laborer Name | Role | Phone | [...] | [address] [place], [place] | [place] [address] | | | | | [address] | [phone] | | | | | [phone] | | | +--------+ + + + [...] | | | | | [place] [address] | | | | | | [phone] | | | | | | | | +--------+ + + + + | 10/30/ | Office | Primary Care | Erika Ernst, | | | 2019 | Visit | | DO [address] | | | | | | [place] [address] | | | | | | [phone] | | | | | | | [...] [place] | | | | | | [address] | | | | | | [phone] | | | | | | | | +--------+ + + + + | 02/09/ | Office | Neurology | Dhara, | | | 2020 | Visit | | [address] | | | | | [address] [place], | | | | | | [place] [address] | | | | | | [phone] | | | | | | | | +--------+ + + + + documented as of this encounter Visit Diagnoses Not on filedocumented in this encounter"
--- OUTSIDE RECORDS SUMMARY | ~2019-09-30 | XMS | Encounter Summary ---
Demographics + + + | Address | [address] | | | [place] [address] | + + + | Home Phone [...] Team Providers + +------+ + | Care Pedigree Tracer Name | Role | Phone | + +------+ + PCP | Unavailable | + +------+ + Encounter Details +--------+ + + + + | Date | Type | Department | Care Team | Description | +--------+ + + + + | 01/22/ | Hospital | [place] [facility] | Ezequiel Mahajan | | | 2014 | Encounter | [facility] X[facility] | MD [address] | | | | | [address] | [place] [address] | | | | | [place] | [place], [place] [address] | | | | | [address] | [phone] | | | | | [phone] | | | +--------+ + + + [...] | | | | | [place] [address] | | | | | | [phone] | | | | | | | | +--------+ + + + + | 10/30/ | Office | Primary Care | Erika Ernst, | | | 2019 | Visit | | DO [address] | | | | | | [place] [address] | | | | | | [phone] | | | | | | | [...] [place] | | | | | | [address] | | | | | | [phone] | | | | | | | | +--------+ + + + + | 02/09/ | Office | Neurology | Dhara, | | | 2019 | Visit | | Cody, MOTEL FRONT DESK CLERK [address] | | | | | | [address] [facility], | | | | | | [place] [address] | | | | | | [phone] | | | | | | | [...] | Normal right ankle x-rays. JOB #: [id number] | | | Read By: BARRON YING [...] | | | | | JOB #: [id number] | | | | Read By: BARRON [...] interval change. | | | JOB #: [id number] Read By: BARRON Narayanan | | | [...] interval change. D: | | 01/22/2015JOB #: [id number] Read By: BARRON YING MD Released By: [...] | | | | | |JOB #: [id number] | | | |Read By: BARRON YING MD | | | |Released By: BARRON YING MD | |Date: 01/22/2015 20:18 | | | | | + + documented in this encounter Visit Diagnoses Not on filedocumented in this encounter"
--- OUTSIDE RECORDS SUMMARY | ~2019-09-30 | XMS | Encounter Summary ---
Demographics + + + | Address | [address] | | | [place] [address] | + + + | Home Phone [...] Team Providers + +------+ + | Care Household Refrigeration Mechanic Name | Role | Phone | [...] | [facility] | [place] [address] | Essential | | | | [address] [place], | [phone] | hypertension; Asthma | | | | [place] [address] | | due to | | | | [phone] | | environmental | | | | [...] allergy bunn. She will let the holter industrial engineering technician kne w this when she gets the [...] (BMI) of 50.0 to 59.9 in adult ([facility]) Plan: We will order a week long [...] | | | | | [place] [address] | | | | | | [phone] | | | | | | | | +--------+ + + + + | 10/30/ | Office | Primary Care | Erika Ernst, | | | 2019 | Visit | | DO [address] | | | | | | [place] [address] | | | | | | [phone] | | | | | | | [...] [place] | | | | | | [address] | | | | | | [phone] | | | | | | | | +--------+ + + + + | 02/09/ | Office | Neurology | Dhara, | | | 2019 | Visit | | [address] Ross [address] | | | | | [address] [place], | | | | | | [place] [address] | | | | | | [phone] | | | | | | | [...]
--- OUTSIDE RECORDS SUMMARY | ~2019-09-30 | XMS | Encounter Summary ---
Demographics + + + | Address | [address] | | | [place] [address] | + + + | Home Phone [...] Team Providers + +------+ + | Care Delicatessen Manager Name | Role | Phone | [...] | | | of left | [place] [address] | [place] [address] | | | | | ankle, | Phone: | Phone: | | | | | initial | [phone] | [phone] | | | | | encounter | Fax: | Fax: | | | | | Procedures | [phone] | [phone] | | | | | PT EVAL [...] [address] | [place] [address] | ligament of left | | | | [place], [place] | [phone] | ankle, initial | | | | [address] | | encounter | | | | [phone] | Leila Maldonado, PT | | +--------+ [...] might be different fr om the original. [facility] [address] [place] [address] Physical Therapy Daily Treatment Note Date: 07/24/2018 [...] in favor of SL heel raise with CODING CLERKS SUPERVISOR. ONGOING: SLS on even surface 3x30 seconds [...] 2: NMR: SL stance on bosu with CODING CLERKS SUPERVISOR 3x15 sec. SL stance on ground no CODING CLERKS SUPERVISOR 3x2 0 sec. Step ups to foam [...] | | | | | [place] [address] | | | | | | [phone] | | | | | | | | +--------+ + + + + | 10/30/ | Office | Primary Care | Erika Ernst, | | | 2019 | Visit | | DO [address] | | | | | | [place] [address] | | | | | | [phone] | | | | | | | | +--------+ + + + + | 11/07/ | Appointment | Nutrition | Janel Websetr | | | 2019 | | | [address], [address] | | +--------+ + + + + | 11/28/ | Office | Otolaryngology | Anthony Alvarado MD | | | 2019 | Visit | | [address] | | | | | | [place] | | | | | | [address] | | | | | | [phone] | | | | | | | | +--------+ + + + + | 02/09/ | Office | Neurology | Dhara, | | | 2019 | Visit | | [address] | | | | [address] [place], | | | | | | [place] [address] | | | | | | [phone] | | | | | | | | +--------+ + + + + documented as of this encounter Visit Diagnoses + + | Diagnosis | + + | Sprain of calcaneofibular ligament of left ankle, initial encounter | + + documented in this encounter
--- OUTSIDE RECORDS SUMMARY | ~2019-09-30 | XMS | Encounter Summary ---
Demographics + + + | Address | [address] | | | [place] [address] | + + + | Home Phone [...] Team Providers + +------+ + | Care Tracer Clerk Name | Role | Phone | [...] 08/20/ | Telephone | [facility] [facility] | Erika Ernst, | Referral | | 2019 | | [facility] | DO [address] | | | | | [facility] [address] | [place] [address] | | | | | [address] [place], | [phone] | | | | | [place] [address] | | | | | | [phone] | | | +--------+ + + + [...] | | | | | [place] [address] | | | | | | [phone] | | | | | | | | +--------+ + + + + | 10/30/ | Office | Primary Care | Erika Ernst, | | | 2019 | Visit | | DO [address] | | | | | | [place] [address] | | | | | | [phone] | | | | | | | [...] [place] | | | | | | [address] | | | | | | [phone] | | | | | | | | +--------+ + + + + | 02/09/ | Office | Neurology | Dhara, | | | 2020 | Visit | | [address] | | | | [address] [place], | | | | | | [place] [address] | | | | | | [phone] | | | | | | | | +--------+ + + + + documented as of this encounter Visit Diagnoses Not on filedocumented in this encounter"
--- OUTSIDE RECORDS SUMMARY | ~2019-09-30 | XMS | Encounter Summary ---
Demographics + + + | Address | [address] | | | [place] [address] | + + + | Home Phone [...] Providers + +------+ + | Care Dental Office Manager Name | Role | Phone | + +------+ + PCP | Unavailable | + +------+ + Encounter Details +--------+ + + + + | Date | Type | Department | Care Team | Description | +--------+ + + + + | 12/17/ | [facility] | [facility] | Erika Ernst, | | | 2016 | Encounter | [facility] | DO [address] | | | | | [facility] [address] | [place] [place] [address] | | | | | [address] [place], | [phone] | | | | | [place] [address] | | | | | | [phone] | | | +--------+ + + + [...] | | | | | [place] [address] | | | | | | [phone] | | | | | | | | +--------+ + + + + | 10/30/ | Office | Primary Care | Erika Ernst, | | | 2019 | Visit | | DO [address] | | | | | | [place] [address] | | | | | | [phone] | | | | | | | [...] [place] | | | | | | [address] | | | | | | [phone] | | | | | | | | +--------+ + + + + | 02/09/ | Office | Neurology | Dhara, | | | 2020 | Visit | | [address] | | | | [address] [place], | | | | | | [place] [address] | | | | | | [phone] | | | | | | | | +--------+ + + + + documented as of this encounter Visit Diagnoses Not on filedocumented in this encounter"
--- OUTSIDE RECORDS SUMMARY | ~2019-09-30 | XMS | Encounter Summary ---
Demographics + + + | Address | [address] | | | [place] [address] | + + + | Home Phone [...] Team Providers + +------+ + | Care Equipment Operator/Laborer Name | Role | Phone | + [...] | [facility] [address] | [place] [address] | | | | | [address] [place], | [phone] | | | | | [place] [address] | | | | | | [phone] | | | +--------+ + + + [...] | | | | | [place] [address] | | | | | | [phone] | | | | | | | | +--------+ + + + + | 10/30/ | Office | Primary Care | Erika Ernst, | | | 2019 | Visit | | DO [address] | | | | | | [place] [address] | | | | | | [phone] | | | | | | | [...] [place] | | | | | | [address] | | | | | | [phone] | | | | | | | | +--------+ + + + + | 02/09/ | Office | Neurology | Dhara, | | | 2019 | Visit | | [address] | | | | | [address] [place], | | | | | | [place] [address] | | | | | | [phone] | | | | | | | | +--------+ + + + + documented as of this encounter Visit Diagnoses Not on filedocumented in this encounter"
--- OUTSIDE RECORDS SUMMARY | ~2019-09-30 | XMS | Encounter Summary ---
Demographics + + + | Address | [address] | | | [place] [address] | + + + | Home Phone [...] Team Providers + +------+ + | Care Milk Driver Name | Role | Phone | + +------+ + PCP | Unavailable | + +------+ + Encounter Details +--------+ + + + + | Date | Type | Department | Care Team | Description | +--------+ + + + + | 12/10/ | [facility] | Caro Zendejas | | | 2013 | Encounter | [facility] | Vale, SALES FLOOR ASSOCIATE [address] | | | | | [facility] [address] | [facility], [place] | | | | | [address] [facility], | [address] | | | | | [place] [address] | [phone] | | | | | [phone] | | | +--------+ + + + [...] [address] | | | | | | [phone] | | | | | | | | +--------+ + + + + | 10/30/ | Office | Primary Care | Erika Ernst, | | | 2019 | Visit | | DO [address] | | | | | | [place] [address] | | | | | | [phone] | | | | | | | [...] [place] | | | | | | [address] | | | | | | [phone] | | | | | | | | +--------+ + + + + | 02/09/ | Office | Neurology | Dhara, | | | 2020 | Visit | | [address] | | | | | [address] [place], | | | | | | [place] [address] | | | | | | [phone] | | | | | | | | +--------+ + + + + documented as of this encounter Visit Diagnoses Not on filedocumented in this encounter"
--- OUTSIDE RECORDS SUMMARY | ~2019-09-30 | XMS | Encounter Summary ---
Demographics + + + | Address | [address] | | | [place] [address] | + + + | Home Phone [...] Team Providers + +------+ + | Care Dump Worker Name | Role | Phone | [...] Refill | | 2018 | | [facility] | [address] | | | | | MEDICAL [facility] [address] | [facility] [place] [address] | | | | | [address] [place], | [phone] | | | | | [place] [address] | | | | | | [phone] | | | +--------+ + + + [...] | | | | | [place] [address] | | | | | | [phone] | | | | | | | | +--------+ + + + + | 10/30/ | Office | Primary Care | Erika Ernst, | | | 2019 | Visit | | DO [address] | | | | | | [place] [address] | | | | | | [phone] | | | | | | | [...] [place] | | | | | | [address] | | | | | | [phone] | | | | | | | | +--------+ + + + + | 02/09/ | Office | Neurology | Dhara, | | | 2019 | Visit | | DWAINE Ross [address] [place], | | | | | | [place] [address] | | | | | | [phone] | | | | | | | | +--------+ + + + + documented as of this encounter Visit Diagnoses Not on filedocumented in this encounter"
--- OUTSIDE RECORDS SUMMARY | ~2019-09-30 | XMS | Encounter Summary ---
Demographics + + + | Address | [address] | | | [place] [address] | + + + | Home Phone [...] Providers + +------+ + | Care Supervisor Special Services Name | Role | Phone | [...] [place] | | | | | | [address] | | | | | | [phone] | | | +--------+ + + + [...] | | | | | [place] [address] | | | | | | [phone] | | | | | | | | +--------+ + + + + | 10/30/ | Office | Primary Care | Erika Ernst, | | | 2019 | Visit | | DO [address] | | | | | | [place] [address] | | | | | | [phone] | | | | | | | [...] [place] | | | | | | [address] | | | | | | [phone] | | | | | | | | +--------+ + + + + | 02/09/ | Office | Neurology | Dhara, | | | 2020 | Visit | | DWAINE Ross [address] | [address] [place], | | | | | | [place] [address] | | | | | | [phone] | | | | | | | | +--------+ + + + + documented as of this encounter Visit Diagnoses Not on filedocumented in this encounter"
--- OUTSIDE RECORDS SUMMARY | ~2019-09-30 | XMS | Encounter Summary ---
Demographics + + + | Address | [address] | | | [place] [address] | + + + | Home Phone [...] Team Providers + +------+ + | Care Breakfast Server Name | Role | Phone | + +------+ + | Erika Ernst DO | PCP | | + +------+ + Encounter Details +--------+ + + + + | Date | Type | Department | Care Team | Description | +--------+ + + + + | 06/19/ | Hospital | [facility] | Abhi Landaverde | Acute ankle pain, | | 2018 | Encounter | HOSPITAL | DO [address] | unspecified | | | | ORTHOPAEDICS XRAY | [address] [place] | laterality | | | | [address] [place] | [place] [address] | | | | | [place], [place] | [phone] | | | | | [address] | | | | | | [phone] | | | +--------+ + + + [...] | 03/19/20 | | | (VITAMIN D3) 40761 | mouth Once a week | tablet [...] | | | | | [place] [address] | | | | | | [phone] | | | | | | | | +--------+ + + + + | 10/30/ | Office | Primary Care | Erika Ernst, | | | 2019 | Visit | | DO [address] | | | | | | [place] [address] | | | | | | [phone] | | | | | | | [...] [place] | | | | | | [address] | | | | | | [phone] | | | | | | | | +--------+ + + + + | 02/09/ | Office | Neurology | Dhara, | | | 2019 | Visit | | Cody, SIGN MAINTENANCE [address] | | | | | | [address] [facility] [place], | | | | | | [place] [address] | | | | | | [phone] | | | | | | | | +--------+ + + + + documented as of this encounter Procedures + +--------+ + + + | Procedure Name | Priori | Date/Time | Associated Diagnosis | Comments | | | ty | | | | + +--------+ + + + | XR ANKLE LEFT 3 + VW | Routin | 06/19/2018 | Acute ankle pain, | Results for this | | | e | 3:35 PM | unspecified | procedure are in the | | | | PDT | laterality | results section. | + +--------+ + + + documented in this encounter Results XR Ankle Left 3 [...] + | Acute ankle pain, unspecified laterality | + + documented in this encounter"
--- OUTSIDE RECORDS SUMMARY | ~2019-09-30 | XMS | Encounter Summary ---
Demographics + + + | Address | [address] | | | [place] [address] | + + + | Home Phone [...] Providers + +------+ + | Care Supervisor Orchard Name | Role | Phone | + [...] | | | | encounter | [place] [address] | [place], [place] | | | | | | Phone: | [address] Phone: | | | | | | [phone] | [phone] | | | | | | Fax: | Fax: | | | | | | [phone] | [phone] | + + + + + + + Encounter Details +--------+---------+ + + + | Date | Type | Department | Care Team | Description | +--------+---------+ + + + | 09/19/ | Office | [facility] | Jeffrey Gandhi, | Radial styloid | | 2019 | Visit | [facility] | MD [address] | tenosynovitis (de | | | | MEDICINE CHRIS | [place] [address] | quervain) (Primary | | | | [address] | [phone] | Dx); Right wrist | | | | [place], [place] | | pain | | | | [address] | | | | | | [phone] | | | +--------+---------+ + + + [...] might be different fro m the original. [facility]: Orthopedic Surgery Patient Name:Andrea Suh [...] E.C.U. Tendon; Surgeon: Inocencio Noriega MD; Location: [facility] SUR[facility] RIGHT KIDNER PROCEDURE 01/20/2016 Surgeon: Fani Mahajan MD; Location: [facility] TENDON RELEASE THYROID FINE NEEDLE ASPIRATION 09/02/2019 Procedure: US GUIDED THYROID FNA - Location: [facility] TONSILLECTOMY WISDOM TOOTH EXTRACTION Allergies [...] cancer Maternal Grandmother Heart attack Maternal Aunt [place] Hypertension Maternal Uncle Social History Socioeconomic History [...] file Gets together: Not on file Attends adventism service: Not on file Active member of [...] MD This document has been prepared with Precognate voice recognition system. The possibility of "s ound alike" oil recovery operator errors, and additions, or deletions may occur. [...] | | | | | [place] [address] | | | | | | [phone] | | | | | | | | +--------+ + + + + | 10/30/ | Office | Primary Care | Erika Ernst, | | | 2019 | Visit | | DO [address] | | | | | | [place] [address] | | | | | | [phone] | | | | | | | [...] [place] | | | | | | [address] | | | | | | [phone] | | | | | | | | +--------+ + + + + | 02/09/ | Office | Neurology | Dhara, | | | 2019 | Visit | | [address]WAINE Ross [address] [place], | | | | | | [place] [address] | | | | | | [phone] | | | | | | | | +--------+ + + + + documented as of this encounter Visit Diagnoses + + | Diagnosis | + + | Radial styloid tenosynovitis (de quervain) - Primary | + + | Right wrist pain Pain in joint, forearm | + + documented in this encounter
--- OUTSIDE RECORDS SUMMARY | ~2019-09-30 | XMS | Encounter Summary ---
Demographics + + + | Address | [address] | | | [place] [address] | + + + | Home Phone [...] Team Providers + +------+ + | Care Emergency Services Professional Name | Role | Phone | [...] | [facility] | [place] [address] | (Primary Dx); | | | [address] [place], | [phone] | Anxiety; PTSD | | | | [place] [address] | | (post-traumatic | | | | [phone] | | stress disorder) | +--------+---------+ + [...] daily. 30 tablet 0 Cholecalciferol (VITAMIN D3) 42347 units TABS Take 1 tablet by mouth [...] | | | | | [place] [address] | | | | | | [phone] | | | | | | | | +--------+ + + + + | 10/30/ | Office | Primary Care | Erika Ernst, | | | 2019 | Visit | | DO [address] | | | | | | [place] [address] | | | | | | [phone] | | | | | | | [...] [place] | | | | | | [address] | | | | | | [phone] | | | | | | | | +--------+ + + + + | 02/09/ | Office | Neurology | Dhara, | | | 2019 | Visit | | DWAINE Ross [address] | [address] [place], | | | | | | [place] [address] | | | | | | [phone] | | | | | | | [...]
--- OUTSIDE RECORDS SUMMARY | ~2019-09-30 | XMS | Encounter Summary ---
Demographics + + + | Address | [address] | | | [place] [address] | + + + | Home Phone [...] Team Providers + +------+ + | Care Car Shifter Name | Role | Phone | [...] | | | | s (de | [place], [place] | [place] [address] | | | | | quervain) | [address] | Phone: | | | | | Pain in | Phone: | [phone] | | | | | right wrist | [phone] | Fax: | | | | | Procedures | Fax: | [phone] | | | | | OT TREAT | [phone] | | +--------+--------+ + + + + [...] | | [address] [place] | [place] [address] | (Primary Dx); Right | | | | [place], [place] | [phone] | wrist pain | | | | [address] | | | | | | [phone] | Nakia Koo OT | | +--------+ [...] PST [facility] OT [address] [place] [address] Occupational Therapy Progress Assessment Date: 10/16/2018 Patient [...] jar: 4 - Severe Difficulty 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 OT Interventions: Manual Therapy Intervention [...] have some deficits in AROM, pinch and voltage regulator assembler strength. She has returned to modified work [...] pt has made progress with her R voltage regulator assembler strength, but is still experiencing activity limiting [...] in 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, and voltage regulator assembler and pinch weakness in the right hand [...] Goal 2: The pt will have right voltage regulator assembler strength of 50 lbs by discharge Goal 2 Status: PARTIALLY MET - Right voltage regulator assembler is 33 lbs, left is 60 lbs. [...] 08/07/2018 Certification To: 10/30/2018 Treatment Plan/Interventions OT [id number] - Therapeutic Pjsspphn39326 - Therapeutic Aksuidliek69779 - Self Care/Ho me Vwaspinrwu35864 - Manual Vrasmcb52816 - Orthotic/Prosthetic Tpokynah88471 - Kgkqhxdxho432 34 - Contrast Rykt24053 - Paraffin BathSplinting Moist heat, cold therapy [...] | | | | | [place] [address] | | | | | | [phone] | | | | | | | | +--------+ + + + + | 10/30/ | Office | Primary Care | Erika Ernst, | | | 2019 | Visit | | DO [address] | | | | | | [place] [address] | | | | | | [phone] | | | | | | | [...] [place] | | | | | | [address] | | | | | | [phone] | | | | | | | | +--------+ + + + + | 02/09/ | Office | Neurology | Dhara, | | | 2019 | Visit | | [address]WA[address] [place], | | | | | | [place] [address] | | | | | | [phone] | | | | | | | | +--------+ + + + + documented as of this encounter Visit Diagnoses + + | Diagnosis | + + | Radial styloid tenosynovitis - Primary | + + | Right wrist pain Pain in joint, forearm | + + documented in this encounter"
--- OUTSIDE RECORDS SUMMARY | ~2019-09-30 | XMS | Encounter Summary ---
Demographics + + + | Address | [address] | | | [place] [address] | + + + | Home Phone [...] Team Providers + +------+ + | Care Superannuation Clerk Name | Role | Phone | + +------+ + PCP | Unavailable | + +------+ + Encounter Details +--------+ + + + + | Date | Type | Department | Care Team | Description | +--------+ + + + + | 08/04/ | [facility] | [facility] | Erika Ernst, | | | 2016 | Encounter | [facility] | DO [address] | | | | | [facility] [address] | [place] [address] | | | | | [address] [place], | [phone] | | | | | [place] [address] | | | | | | [phone] | | | +--------+ + + + [...] | | | | | [place] [address] | | | | | | [phone] | | | | | | | | +--------+ + + + + | 10/30/ | Office | Primary Care | Erika Ernst, | | | 2019 | Visit | | DO [address] | | | | | | [place] [address] | | | | | | [phone] | | | | | | | [...] [place] | | | | | | [address] | | | | | | [phone] | | | | | | | | +--------+ + + + + | 02/09/ | Office | Neurology | Dhara, | | | 2019 | Visit | | DWAINE Ross [address] [place], | | | | | | [place] [address] | | | | | | [phone] | | | | | | | | +--------+ + + + + documented as of this encounter Visit Diagnoses Not on filedocumented in this encounter"
--- OUTSIDE RECORDS SUMMARY | ~2019-09-30 | XMS | Encounter Summary ---
Demographics + + + | Address | [address] | | | [place] [address] | + + + | Home Phone [...] [facility] | | [...] Providers + +------+ + | Care Education And Outreach Coordinator Name | Role | Phone | [...] | | | | s (de | [place], [place] | [place] [address] | | | | | quervain) | [address] | Phone: | | | | | Pain in | Phone: | [phone] | | | | | right wrist | [phone] | Fax: | | | | | Procedures | Fax: | [phone] | | | | | OT EVAL | [phone] | | +--------+--------+ + + + + [...] | | [address] [place] | [place] [address] | | | | | [place] | [phone] | | | | | [address] | | | | | | [phone] | Nakia Koo OT | | +--------+ [...] Koo, OT - 08/07/2018 4:49 PM PST [facility] OT [address] [place] [address] Occupational Therapy Initial Assessment Date: 08/07/2018 Patient [...] new jar: 5 - Unable Do heavy event 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: 5 - Unable Carry a shopping bag [...] Flexion: 22 Strength: Left Hand Strength - Coordinator Of Placement (lbs) L Coordinator Of Placement Trial 1: 60 L Coordinator Of Placement Trial 2: 52 L Coordinator Of Placement Trial 3: 55 L Coordinator Of Placement Trial Average: 55.67 L Three Jaw Payam Trial 1: 13 L Three Jaw Payam Trial 2: 13 L Three Jaw Payam Trial 3: 14 L Three Jaw Payam Trial Average: 13.33 L Lateral Pinch Trial 1: 17 L Lateral Pinch Trial 2: 17 L Lateral Pinch Trial 3: 18 L Lateral Pinch Trial Average: 17.33 Right Hand Strength - Coordinator Of Placement (lbs) R Coordinator Of Placement Trial 1: 15 R Coordinator Of Placement Trial 2: 24 R Coordinator Of Placement Trial 3: 21 R Coordinator Of Placement Trial Average: 20 R Three Jaw Payam [...] discussed with the pt who is in [facility]. Initial HEP established. Next Visit: Check [...] in 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, and inventory specialist manager and pinch weakness i n the [...] Goal 2: The pt will have right inventory specialist manager strength of 50 lbs by discharge Goal 2 Status: At evaluation, right inventory specialist manager is 20 lbs and left is [...] 08/07/2018 Certification To: 10/30/2018 Treatment Plan/Interventions OT Srzbtjfkda71115 - Therapeutic Ovelnqqb69232 - Therapeutic Mphnjzbexw66389 - Self Care/Ho me Hyguxngdjt18994 - Manual Vtvtaes01305 - Orthotic/Prosthetic Htndfpix23897 - Jocirogero903 34 - Contrast Yekk38911 - Paraffin BathSplinting Moist heat, cold therapy [...] | | | | | [place] [address] | | | | | | [phone] | | | | | | | | +--------+ + + + + | 10/30/ | Office | Primary Care | Erika Ernst, | | | 2019 | Visit | | DO [address] | | | | | | [place] [address] | | | | | | [phone] | | | | | | | [...] [place] | | | | | | [address] | | | | | | [phone] | | | | | | | | +--------+ + + + + | 02/09/ | Office | Neurology | Dhara, | | | 2019 | Visit | | DWAINE Ross [address] [place], | | | | | | [place] [address] | | | | | | [phone] | | | | | | | | +--------+ + + + + documented as of this encounter Visit Diagnoses + + | Diagnosis | + + | Radial styloid tenosynovitis | + + documented in this encounter"
--- OUTSIDE RECORDS SUMMARY | ~2019-09-30 | XMS | Encounter Summary ---
Demographics + + + | Address | [address] | | | [place] [address] | + + + | Home Phone [...] Team Providers + +------+ + | Care Air Quality Specialist Name | Role | Phone | [...] | | | [place], [place] | [address] | | | | | [address] | | | | | | [phone] | | | +--------+ + + + [...] | Visit | | DO [address] | | | | | | [place] [address] | | | | | | [phone] | | | | | | | | +--------+ + + + + | 10/30/ | Office | Primary Care | Erika Ernst, | | | 2019 | Visit | | DO [address] [place] | | | | | | [place] [address] | | | | | | [phone] | | | | | | | [...] [place] | | | | | | [address] | | | | | | [phone] | | | | | | | | +--------+ + + + + | 02/09/ | Office | Neurology | Dhara, | | | 2019 | Visit | | DWAINE Ross [address] [place], | | | | | | [place] [address] | | | | | | [phone] | | | | | | | | +--------+ + + + + documented as of this encounter Visit Diagnoses Not on filedocumented in this encounter"
--- OUTSIDE RECORDS SUMMARY | ~2019-09-30 | XMS | Encounter Summary ---
Demographics + + + | Address | [address] | | | [place] [address] | + + + | Home Phone [...] Team Providers + +------+ + | Care Humid System Operator Name | Role | Phone | [...] [place] | | | | | | [address] | | | | | | [phone] | | | +--------+ + + + [...] period and is compliant with wrist and renal dietitian strengthening exercises. She does still have deficits in renal dietitian strength and wrist stability as well as pain with daily activities. Her arya b description may be changing which would decrease the physical demands of her work, making it more appropriate for her current status. She continues to benefit from Occupational Thera py to maximize her renal dietitian strength and wrist stability following this injury and return her to prior level of function. 10/30/2018 - REASON FOR RE-CERTIFICATION: Andrea has received 12 Occupational Therapy treatme nts since 08/07/2018 following her right wrist surgery. She has regained full AROM of the rig ht wrist but continues to have right wrist, renal dietitian and pinch weakness and significant pain (3- [...] in 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, and renal dietitian and pinch weakness in the right hand [...] | | | | | [place] [address] | | | | | | [phone] | | | | | | | | +--------+ + + + + | 10/30/ | Office | Primary Care | Erika Ernst, | | | 2019 | Visit | | DO [address] [place] | | | | | | [place] [address] | | | | | | [phone] | | | | | | | [...] [place] | | | | | | [address] | | | | | | [phone] | | | | | | | | +--------+ + + + + | 02/09/ | Office | Neurology | Dhara, | | | 2019 | Visit | | DWAINE Ross [address] [place], | | | | | | [place] [address] | | | | | | [phone] | | | | | | | | +--------+ + + + + documented as of this encounter Visit Diagnoses + + | Diagnosis | + + | Radial styloid tenosynovitis - Primary | + + | Right wrist pain Pain in joint, forearm | + + documented in this encounter"
--- OUTSIDE RECORDS SUMMARY | ~2019-09-30 | XMS | Encounter Summary ---
Demographics + + + | Address | [address] | | | [place] [address] | + + + | Home Phone [...] Team Providers + +------+ + | Care Center Consultant Name | Role | Phone | [...] | | | of left | [place] [address] | [place] [address] | | | | | ankle, | Phone: | Phone: | | | | | initial | [phone] | [phone] | | | | | encounter | Fax: | Fax: | | | | | Procedures | [phone] | [phone] | | | | | PT TREAT [...] [address] [place] | [place] [address] | encounter (Primary | | | | [place], [place] | [phone] | Dx); Fall on same | | | | [address] | | level from slipping, | | | | [phone] | Julia Castillo | subsequent | | [...] might be differen t from the original. [facility] PT [address] [place] [address] Physical Therapy Daily Treatment Note Date: 09/18/2018 [...] Castillo, PT, 09/18/2018 13:43 Patient Name: Andrea Henaonanci/: 1990/ documented in [...] | | | | | [place] [address] | | | | | | [phone] | | | | | | | | +--------+ + + + + | 10/30/ | Office | Primary Care | Erika Ernst, | | | 2019 | Visit | | DO [address] | | | | | | [place] [address] | | | | | | [phone] | | | | | | | [...] [place] | | | | | | [address] | | | | | | [phone] | | | | | | | | +--------+ + + + + | 02/09/ | Office | Neurology | Dhraa, | | | 2019 | Visit | | [address]WAINE [address] | | | | | | [address] [facility] [place], | | | | | | [place] [address] | | | | | | [phone] | | | | | | | | +--------+ + + + + documented as of this encounter Visit Diagnoses + + | Diagnosis | + + | Sprain of left ankle, subsequent encounter - Primary | + + | Fall on same level from slipping, subsequent encounter | + + documented in this encounter"
--- OUTSIDE RECORDS SUMMARY | ~2019-09-30 | XMS | Encounter Summary ---
Demographics + + + | Address | [address] | | | [place] [address] | + + + | Home Phone [...] Team Providers + +------+ + | Care Seismic Survey Assistant Name | Role | Phone | [...] | | | | Spotting | [place] [address] | [place], [place] | | | | | between | Phone: | [address] | | | | | menses | [phone] | Phone: | | | | | | Fax: | [phone] | | | | | | [phone] | Fax: | | | | | | | [phone] | +--------+ + + + + + [...] irregular cycle | | | | [place] [address] | [address] | | | | | [phone] | [phone] | | | | | | | [...] with menses cycles. Is scheduled to see Shellfish Processing Machine Tender. Patient started cycles at 12 and were [...] bearing children as she is of Ashkenazi Anglican descent. Explained this sounds like endometriosis and [...] mouth. Once a week Cholecalciferol (VITAMIN D3) 05937 units TABS Take 1 tablet by mouth [...] facility-administered medications on file prior to visit. Trauma Therapist history: Menstrual history: Patient's last menstrual period was 05/18/2019. Control: condoms STD history: none Sexual history: Patient is sexuall active with Male. She has single partner/s. STD risk: very low risk of STD exposure. Testing desired: none ROS: General: negative Cardiovascular: no chest pain or dyspnea on exertion Respiratory: negative -Urinary: negative -Trauma Therapist: pelvic pain: moderate, abnormal bleeding. Psychiatric: negative [...] above. This documentation prepared by Dioni Amaya medical photographer. All aspects of this chart revie wed [...] | | | | | [place] [address] | | | | | | [phone] | | | | | | | | +--------+ + + + + | 10/30/ | Office | Primary Care | Erika Ernst, | | | 2019 | Visit | | DO [address] [place] | | | | | | [place] [address] | | | | | | [phone] | | | | | | | [...] [place] | | | | | | [address] | | | | | | [phone] | | | | | | | | +--------+ + + + + | 02/09/ | Office | Neurology | Dhara, | | | 2019 | Visit | | DWAINE Ross [address] | | [address] [place], | | | | | | [place] [address] | | | | | | [phone] | | | | | | | [...]
--- OUTSIDE RECORDS SUMMARY | ~2019-09-30 | XMS | Encounter Summary ---
Demographics + + + | Address | [address] | | | [place] [address] | + + + | Home Phone [...] Team Providers + +------+ + | Care Bias Cutting Machine Operator Name | Role | Phone [...] foot surgery | [place] | [address] | | | | | Swelling | [place], [place] | Phone: | | | | | of foot | [address] | [phone] | | | | | joint, right | Phone: | Fax: | | | | | Procedures | [phone] | [phone] | | | | | MRI Foot | Fax: | | | | | | Right wo | [phone] | | | | | | Contrast [...] | | | | encounter | [place] [address] | [place], [place] | | | | | Procedures | Phone: | [address] | | | | | [place] | [phone] | Phone: | | | | | | Fax: | [phone] | | | | | | [phone] | Fax: | | | | | | | [phone] | + + + + + + [...] | | [place], [place] | [place] [address] | surgery; Swelling of | | | | [address] | [phone] | foot joint, right | | | | [phone] | | | +--------+---------+ + + + [...] hand that is farther away from the [facility] ir, reach forward in front of [...] extra support to your arch. Developed by [employer]. Published by [employer]. Copyright 2014 [employer] and/or one of its subsidiaries. All rights [...] cancer Maternal Grandmother Heart attack Maternal Aunt [place] Hypertension Maternal Uncle Review of systems: Patient [...] made to ensure accuracy. However, inadvertent computerized paper stacker errors may be pre sent. documented in [...] | | | | | [place] [address] | | | | | | [phone] | | | | | | | | +--------+ + + + + | 10/30/ | Office | Primary Care | Erika Ernst, | | | 2019 | Visit | | DO [address] [place] | | | | | | [place] [address] | | | | | | [phone] | | | | | | | [...] [place] | | | | | | [address] | | | | | | [phone] | | | | | | | | +--------+ + + + + | 02/09/ | Office | Neurology | Dhara, | | | 2019 | Visit | | [address]WA[address] | | | | | | [address] [facility], | | | | | | [place] [address] | | | | | | [phone] | | | | | | | [...] [facility] | | Jeffrey Gandhi MD, [facility], 09/19/19 describes | | | history of Kidner procedure performed [place] 2016. The findings on | | | [...] medial navicula. Note from Jeffrey Gandhi MD, [facility], 09/19/19 | | describes history of Kidner procedure performed [place] 2015. The findings on the current | [...] medial navicula. Note from Jeffrey Gandhi MD, [facility], 09/19/19 describes history of Kidner procedure performed [place]. The findings on the current study are [...]
--- OUTSIDE RECORDS SUMMARY | ~2019-09-30 | XMS | Encounter Summary ---
Demographics + + + | Address | [address] | | | [place] [address] | + + + | Home Phone [...] Team Providers + +------+ + | Care Wheel Polisher Name | Role | Phone | + +------+ + PCP | Unavailable | + +------+ + Encounter Details +--------+ + + + + | Date | Type | Department | Care Team | Description | +--------+ + + + + | 12/25/ | Hospital | [facility] | Travis Malone FNP | | | 2014 | Encounter | [facility] | [address] | | | | | [place] | [place] | | | | | [place], [place] | [address] | | | | | [address] | [phone] | | | | | [phone] | | | +--------+ + + + [...] | | | | | [place] [address] | | | | | | [phone] | | | | | | | | +--------+ + + + + | 10/30/ | Office | Primary Care | Erika Ernst, | | | 2019 | Visit | | DO [address] [place] | | | | | | [place] [address] | | | | | | [phone] | | | | | | | [...] [place] | | | | | | [address] | | | | | | [phone] | | | | | | | | +--------+ + + + + | 02/09/ | Office | Neurology | Dhara, | | | 2019 | Visit | | Cody, STRATIGRAPHER [address] | | | | | | [address] [facility] [place], | | | | | | [place] [address] | | | | | | [phone] | | | | | | | | +--------+ + + + + documented as of this encounter Procedures + +--------+ + + + | Procedure Name | Priori | Date/Time | Associated Diagnosis | Comments | | | ty | | | | + +--------+ + + + | MRI LOWER EXTREMITY | Routin | 12/25/2014 | | Results for this | | JOINT RIGHT WO | e | 3:15 PM | | procedure are in the | | CONTRAST | | PDT | | results section. | + +--------+ + + + documented in this encounter Results MRI Lower Extremity Joint Right wo C (12/25/2014 3:15 PM PDT) + + | Specimen | + + | | + + + + + | Narrative | Performed At | + + + | ORIGINAL MRI RIGHT ANKLE WITHOUT CONTRAST: | | | CLINICAL STATEMENT: Right foot pain. COMPARISON: None. | | | TECHNIQUE: Multiplanar, multisequence noncontrast images of the right | | | ankle are obtained. REPORT: The visualized bone marrow signal is | | | normal. Ossicle is noted at the medial margin of the navicular. | | | The medial ankle tendons are intact. The lateral ankle tendons are | | | intact. Lateral ankle. The anterior talofibular ligament is | | | intact. The calcaneofibular ligament is not well seen probably | | | related to image plan and slice thickness. The posterior talofibular | | | ligament is intact. Medial ankle. The tibio-spring ligament is | | | intact. The anterior tibiotalar ligament and posterior tibiotalar | | | ligaments are intact. At the syndesmosis no fluid intensity is | | | seen at the tibiotalar recess. At the distal fibula at its | | | articulation with the talus a mild amount of bone edema intensity | | | signal is noted best appreciated on the coronal fat-sat proton density | | | sequence image. A small amount of edema intensity is present at | | | the dorsal ankle. IMPRESSION: 1. A small amount of edema is | | | noted at the dorsal ankle. This finding can be associated with | | | dorsal ankle pain. 2. Edema is noted at the medial aspect of the | | | distal fibula in the region of its articulation with the talus. This | | | finding could relate to degenerative change and/or trauma. 3. | | | Ossicle noted at the medial margin of the navicular. A tiny amount | | | of edema intensity signal is noted in this region best appreciated on | | | the proton density sagittal fat-sat sequence image 19 and 20. Bone | | | edema can be associated with pain. JOB #: | | | [id number] Read By: ANJELICA CHAMBERS MD Released By: ANJELICA CHAMBERS MD Date: 12/26/2014 07:53 | | + + + + + | Procedure Note | + + | Yoni Grullon Results In - 08/09/2017 6:54 PM PST ORIGINAL MRI RIGHT ANKLE | | WITHOUT CONTRAST: CLINICAL STATEMENT:Right foot pain. COMPARISON:None. | | TECHNIQUE:Multiplanar, multisequence noncontrast images of the right ankle are obtained. | | REPORT:The visualized bone marrow signal is normal. Ossicle is noted at the medial | | margin of the navicular. The medial ankle tendons are intact. The lateral ankle | | tendons are intact. Lateral ankle. The anterior talofibular ligament is intact. The | | calcaneofibular ligament is not well seen probably related to image plan and slice | | thickness. The posterior talofibular ligament is intact. Medial ankle. The | | tibio-spring ligament is intact. The anterior tibiotalar ligament and posterior | | tibiotalar ligaments are intact. At the syndesmosis no fluid intensity is seen at the | | tibiotalar recess. At the distal fibula at its articulation with the talus a mild | | amount of bone edema intensity signal is noted best appreciated on the coronal fat-sat | | proton density sequence image. A small amount of edema intensity is present at the | | dorsal ankle. IMPRESSION:1. A small amount of edema is noted at the dorsal ankle. This | | finding can be associated with dorsal ankle pain.2. Edema is noted at the medial aspect | | of the distal fibula in the region of its articulation with the talus. This finding | | could relate to degenerative change and/or trauma.3. Ossicle noted at the medial margin | | of the navicular. A tiny amount of edema intensity signal is noted in this region best | | appreciated on the proton density sagittal fat-sat sequence image 19 and 20. Bone edema | | can be associated with pain. JOB #: [id number] Read By: ANJELICA CHAMBERS, | | Released By: CECILY CHEATHAMate: 12/26/2014 07:53 | |Medial ankle. The tibio-spring ligament is intact. The anterior tibiotalar ligament and p osterior tibiotalar ligaments are intact. | | | |At the syndesmosis no fluid intensity is seen at the tibiotalar recess. At the distal fibu la at its articulation with the talus a mild amount of bone edema intensity signal is noted best appreciated on the coronal | |fat-sat proton density sequence image. | | | |A small amount of edema intensity is present at the dorsal ankle. | | | |IMPRESSION: | |1. A small amount of edema is noted at the dorsal ankle. This finding can be associated w ith dorsal ankle pain. | |2. Edema is noted at the medial aspect of the distal fibula in the region of its articulati on with the talus. This finding could relate to degenerative change and/or trauma. | |3. Ossicle noted at the medial margin of the navicular. A tiny amount of edema intensity s ignal is noted in this region best appreciated on the proton density sagittal fat-sat sequen ce image 19 and 20. Bone edema can be associated with pain. | | | | | |JOB #: [id number] | | | |Read By: ANJELICA CHAMBERS MD | | | |Released By: ANJELICA CHAMBERS MD | |Date: 12/26/2014 07:53 | | | | | + + documented in this encounter Visit Diagnoses Not on filedocumented in this encounter"
--- OUTSIDE RECORDS SUMMARY | ~2019-09-30 | XMS | Encounter Summary ---
Demographics + + + | Address | [address] | | | [place] [address] | + + + | Home Phone [...] Providers + +------+ + | Care Material Spreader Name | Role | Phone | + [...] [facility] [place] [address] | | | | | [address] [facility], | [phone] | | | | | [place] [address] | | | | | | [phone] | | | +--------+ + + + [...] | | | | | [place] [address] | | | | | | [phone] | | | | | | | | +--------+ + + + + | 10/30/ | Office | Primary Care | Erika Ernst, | | | 2019 | Visit | | DO [address] | | | | | | [place] [address] | | | | | | [phone] | | | | | | | [...] [place] | | | | | | [address] | | | | | | [phone] | | | | | | | | +--------+ + + + + | 02/09/ | Office | Neurology | Dhara, | | | 2019 | Visit | | DWAINE Ross [address] | | | | | [address] [place], | | | | | | [place] [address] | | | | | | [phone] | | | | | | | | +--------+ + + + + documented as of this encounter Visit Diagnoses Not on filedocumented in this encounter"
--- OUTSIDE RECORDS SUMMARY | ~2019-09-30 | XMS | Encounter Summary ---
Demographics + + + | Address | [address] | | | [place] [address] | + + + | Home Phone [...] + +------+ + | Care Information Security Director Name | Role | Phone | [...] + + + + | 06/13/ | Telephone | [facility] [facility] | Travis Malone, DWAINE | Other | | 2019 | | [facility] | [address] | | | | | [address] [place] [address] | [place], [place] | | | | | [place], [place] | [address] | | | | | [address] | [phone] | | | | | [phone] | | | +--------+ + + + [...] | | | | | [place] [address] | | | | | | [phone] | | | | | | | | +--------+ + + + + | 10/30/ | Office | Primary Care | Erika Ernst, | | | 2019 | Visit | | DO [address] | | | | | | [place] [address] | | | | | | [phone] | | | | | | | [...] [place] | | | | | | [address] | | | | | | [phone] | | | | | | | | +--------+ + + + + | 02/09/ | Office | Neurology | Dhara, | | | 2020 | Visit | | DWAINE [address] | | | | [address] [place], | | | | | | [place] [address] | | | | | | [phone] | | | | | | | | +--------+ + + + + documented as of this encounter Visit Diagnoses Not on filedocumented in this encounter"
--- OUTSIDE RECORDS SUMMARY | ~2019-09-30 | XMS | Encounter Summary ---
Demographics + + + | Address | [address] | | | [place] [address] | + + + | Home Phone [...] Team Providers + +------+ + | Care Fitting Room Checker Name | Role | Phone | [...] media | | 2019 | Visit | [facility] | M[facility] [address] | with effusion | | | | [facility] | [place], [place] [address] | | | | | [address] [place], | [phone] | | | | | [place] [address] | | | | | | [phone] | | | +--------+---------+ + + + [...] | | | | | [place] [address] | | | | | | [phone] | | | | | | | | +--------+ + + + + | 10/30/ | Office | Primary Care | Erika Ernst, | | | 2019 | Visit | | DO [address] | | | | | | [place] [address] | | | | | | [phone] | | | | | | | [...] | | | | | | [place] | | | | | | [address] | | | | | | [phone] | | | | | | | | +--------+ + + + + | 02/09/ | Office | Neurology | Dhara, | | | 2019 | Visit | | DWAINE Ross [address] | | | [address] [place], | | | | | | [place] [address] | | | | | | [phone] | | | | | | | [...]
--- OUTSIDE RECORDS SUMMARY | ~2019-09-30 | XMS | Encounter Summary ---
Demographics + + + | Address | [address] | | | [place] [address] | + + + | Home Phone [...] Team Providers + +------+ + | Care Outpatient Coding Specialist Name | Role | Phone | [...] | | | DR MYRA [place], | [facility], [place] | | | | | [place] [address] | [address] | | | | | [phone] | [phone] | | | | | | | [...] mouth. Once a week Cholecalciferol (VITAMIN D3) 83298 units TABS Take 1 tablet by mouth [...] facility-administered medications on file prior to visit. Materials Director history: Menstrual history: Patient's last menstrual period was 07/15/2019 (exact date). Control: condoms STD history: none Sexual history: Patient is sexuall active with Male. STD risk: very low risk of STD exposure. Testing desired: none ROS: General: negative -Urinary: negative -Materials Director: none. Psychiatric: negative PE : Vitals: 07/17/19 [...] Time: 06/11/19 16:56 Result Value Ref Range [place] Screen Negative Negative Culture, Strep A, Throat [...] improve. This documentation prepared by Dioni Amaya director medical surgical. All aspects of this chart revie wed [...] | | | | | [place] [address] | | | | | | [phone] | | | | | | | | +--------+ + + + + | 10/30/ | Office | Primary Care | Erika Ernst, | | | 2019 | Visit | | DO [address] | | | | | | [place] [address] | | | | | | [phone] | | | | | | | [...] [place] | | | | | | [address] | | | | | | [phone] | | | | | | | | +--------+ + + + + | 02/09/ | Office | Neurology | Dhara, | | | 2019 | Visit | | DWAINE Ross [address] [place], | | | | | | [place] [address] | | | | | | [phone] | | | | | | | | +--------+ + + + + documented as of this encounter Visit Diagnoses + + | Diagnosis | + + | Dysmenorrhea - Primary | + + documented in this encounter
--- OUTSIDE RECORDS SUMMARY | ~2019-09-30 | XMS | Encounter Summary ---
Demographics + + + | Address | [address] | | | [place] [address] | + + + | Home Phone [...] Team Providers + +------+ + | Care Swatcher Name | Role | Phone | + +------+ + | Erika Ernst DO | PCP | | + +------+ + Reason for Visit + + + | Reason | Comments | + + + | Wrist Injury | R | + + + | Ankle Injury | L | + + + Encounter Details +--------+ + + + + | Date | Type | Department | Care Team | Description | +--------+ + + + + | 05/10/ | Emergency | [facility] | Bhavin Stroud | Right wrist pain | | 2019 | | [facility] | Jesus DO [address] | (Primary Dx); Acute | | | | CENTER [address] | [address] | left ankle pain | | | | DR [place], [place] | [place] [address] | | | | | [address] | [phone] | | | | | [phone] | | | +--------+ + + + [...] + + + | Blood Pressure | 146/97 | 05/10/2019 11:40 PM | | | | | PDT | | + + + + + | Pulse | 71 | 05/10/2019 11:40 PM | | | | | PDT | | + + + + + | Temperature | 36.5 C (97.7 F) | 05/10/2019 10:46 PM | | | | | PDT | | + + + + + | Respiratory Rate | 18 | 05/10/2019 11:40 PM | | | | | PDT | | + + + + + | Oxygen Saturation | 97% | 05/10/2019 11:40 PM | | | | | PDT | | + + + + + | Inhaled Oxygen | - | - | | | Concentration | | | | + + + + + | Weight | 163.3 kg (360 lb) | 05/10/2019 10:46 PM | | | | | PDT | | + + + + + | Height | 177.8 cm (5' 10") | 05/10/2019 10:46 PM | | | | | PDT | | + + + + + | Body Mass Index | 51.65 | 05/10/2019 10:46 PM | | | | | PDT | | + + + + + documented in this encounter Discharge Instructions Bhavin Nieves DO - 05/10/2019Follow-up with Dr. Noriega and Dr. Mittal . AttachmentsThe following attachments cannot be sent through Care Everywhere.JOSE ()scottie ocumented in this encounter Medications at Time of [...] | 04/12/20 | | | (VITAMIN D3) 00995 | mouth Once a week | tablet [...] | | | | | [place] [address] | | | | | | [phone] | | | | | | | | +--------+ + + + + | 10/30/ | Office | Primary Care | Erika Ernst, | | | 2019 | Visit | | DO [address] | | | | | | [place] [address] | | | | | | [phone] | | | | | | | [...] [place] | | | | | | [address] | | | | | | [phone] | | | | | | | | +--------+ + + + + | 02/09/ | Office | Neurology | Dhara, | | | 2019 | Visit | | DWAINE Ross [address] | [address] [place], | | | | | | [place] [address] | | | | | | [phone] | | | | | | | | +--------+ + + + + + +------+--------+ + + | Name | Type | Priori | Associated Diagnoses | Date/Time | | | | ty | | | + +------+--------+ + + | ED INFORMATION | YARITZA | Routin | | 05/10/2019 10:30 PM | | EXCHANGE | | e | | PDT | + +------+--------+ + + documented as of this encounter Procedures + +--------+ + + + | Procedure Name | Priori | Date/Time | Associated Diagnosis | Comments | | | ty | | | | + +--------+ + + + | XR ANKLE LEFT 3 + VW | STAT | 05/10/2019 | | Results for this | | | | 11:09 PM | | procedure are in the | | | | PDT | | results section. | + +--------+ + + + | XR WRIST RIGHT 3 + | STAT | 05/10/2019 | | Results for this | | VW | | 11:09 PM | | procedure are in the | | | | PDT | | results section. | + +--------+ + + + documented in this encounter Results XR Ankle Left 3 + Vw (05/10/2019 11:09 PM PDT) + + | Specimen | [...] | [facility] | | COMPARISON STUDY: Ankle x-ray 12/06/2017. MRI ankle 11/01/2018. | | | FINDINGS: Images in multiple views showed no significant soft tissue | | | or bony abnormality. If concern for acute fracture remains | | | clinically follow-up images in 10 to 14 days recommended. . | | + + + + -------+ | Procedure Note | + -------+ | Mitchel, Rad Results In - 05/11/2019 7:42 AM PDT EXAMINATION:XR ANKLE LEFT 3 + | | VWHISTORY:ankle painCOMPARISON STUDY:Ankle x-ray 12/06/2017. MRI ankle | | 11/01/2018.FINDINGS:Images in multiple views showed no significant soft tissue or bony | | abnormality.If concern for acute fracture remains clinically follow-up images in 10 to | | 14 days recommended. .IMPRESSION: IMPRESSION:No acute findingDictated by: Chris | | Graeme | |COMPARISON STUDY: | |Ankle x-ray 12/06/2017. MRI ankle 11/01/2018. | | | |FINDINGS: | |Images in [...] + XR Wrist Right 3 + Vw (05/10/2019 11:09 PM PDT) + + | Specimen | + + | | + + + + + | Impressions | Performed At | + + + | IMPRESSION: 1. Interval surgery as detailed above. 2. No acute | [facility] | | bone finding identified. Dictated by: Chris Bedolla | | | | | + + + + + + | Narrative | Performed At | + + + | EXAMINATION: XR WRIST RIGHT 3 + VW HISTORY: WRIST INJURY | [facility] | | COMPARISON STUDY: MRI wrist 01/28/2019. FINDINGS: Postsurgical | | | changes noted at the ulnar aspect of the wrist with 3 surgical | | | radiopaque structures projecting at the distal ulna. No acute bone | | | finding identified. No carpal subluxation. If concern for acute | | | fracture remains clinically follow-up images in 10 to 14 days | | | recommended. . | | + + + + + | Procedure Note | + + | Mitchel, Rad Results In - 05/11/2019 7:44 AM PDT EXAMINATION:XR WRIST RIGHT 3 + | | VWHISTORY:WRIST INJURYCOMPARISON STUDY:MRI wrist 01/28/2019.FINDINGS:Postsurgical | | changes noted at the ulnar aspect of the wrist with 3 surgical radiopaque structures | | projecting at the distal ulna.No acute bone finding identified. No carpal | | subluxation.If concern for acute fracture remains clinically follow-up images in 10 to | | 14 days recommended. .IMPRESSION: IMPRESSION:1. Interval surgery as detailed above.2. No | | acute bone finding identified.Dictated by: Chris Bedolla | | | |FINDINGS: | |Postsurgical changes noted at the ulnar aspect of the wrist with 3 surgical radiopaque stru ctures projecting at the distal ulna. | | | |No acute bone finding identified. No carpal subluxation. | |If concern for acute fracture remains clinically follow-up images in 10 to 14 days recommen ded. . | | | |IMPRESSION: | |IMPRESSION: | |1. Interval surgery as detailed above. | |2. No acute bone finding identified. | | | | | |Dictated by: [...] in joint, forearm | + + | Acute left ankle pain | + + documented in this encounter
--- OUTSIDE RECORDS SUMMARY | ~2019-09-30 | XMS | Encounter Summary ---
Demographics + + + | Address | [address] | | | [place] [address] | + + + | Home Phone [...] Team Providers + +------+ + | Care Legal Recovery Specialist Name | Role | Phone | [...] | | | | encounter | [place] [address] | [place], [place] | | | | | | Phone: | [phone] Phone: | | | | | | [phone] | [phone] | | | | | | Fax: | Fax: | | | | | | [phone] | [phone] | + + + + + + [...] | [facility] | [place] [address] | encounter (Primary | | | | [address] [place], | [phone] | Dx) | | | | [place] [address] | | | | | | [phone] | | | +--------+ + + + [...] | | 2018 | Visit | | [address] | | | | | | [place] [address] | | | | | | [phone] | | | | | | | | +--------+ + + + + | 10/30/ | Office | Primary Care | Erika Ernst, | | | 2019 | Visit | | DO [address] | | | | | | [place] [address] | | | | | | [phone] | | | | | | | | +--------+ + + + + | 11/07/ | Appointment | Nutrition | Janel Webster | | 2019 | | | [place] | | +--------+ + + + + | 11/28/ | Office | Otolaryngology | Anthony Alvarado MD | | 2019 | Visit | | [address] | | | | | | [place], [place] | | | | | | [address] | | | | | | [phone] | | | | | | | | +--------+ + + + + | 02/09/ | Office | Neurology | Dhara, | | | 2019 | Visit | | [address] | | | | | [address] [place], | | | | | | [place] [address] | | | | | | [phone] | | | | | | | [...]
--- OUTSIDE RECORDS SUMMARY | ~2019-09-30 | XMS | Encounter Summary ---
Demographics + + + | Address | [address] | | | [place] [address] | + + + | Home Phone [...] Team Providers + +------+ + | Care Brass Burnisher Name | Role | Phone | + +------+ + PCP | Unavailable | + +------+ + Encounter Details +--------+ + + + + | Date | Type | Department | Care Team | Description | +--------+ + + + + | 12/30/ | [facility] | Cody Go | | | 2017 | Encounter | [facility] | [address] [place] | | | | | [facility] [address] | [facility] [place] | | | | | [facility], | [address] | | | | | [place] [address] | [phone] | | | | | [phone] | | | +--------+ + + + [...] | | | | | [place] [address] | | | | | | [phone] | | | | | | | | +--------+ + + + + | 10/30/ | Office | Primary Care | Erika Ernst, | | | 2019 | Visit | | DO [address] [place] | | | | | | [place] [address] | | | | | | [phone] | | | | | | | [...] [place] | | | | | | [address] | | | | | | [phone] | | | | | | | | +--------+ + + + + | 02/09/ | Office | Neurology | Dhara, | | | 2019 | Visit | | DWA[address] | | | | [address] [place], | | | | | | [place] [address] | | | | | | [phone] | | | | | | | | +--------+ + + + + documented as of this encounter Visit Diagnoses Not on filedocumented in this encounter"
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
--- OUTSIDE RECORDS SUMMARY | ~2019-09-30 | XMS | Encounter Summary ---
Demographics + + + | Address | [address] | | | [place] [address] | + + + | Home Phone [...] Team Providers + +------+ + | Care Dough Raiser Name | Role | Phone | + +------+ + PCP | Unavailable | + +------+ + Encounter Details +--------+ + + + + | Date | Type | Department | Care Team | Description | +--------+ + + + + | 11/29/ | [facility] | [facility] | Conversion | | | 2012 | Encounter | [facility] | Transaction, | | | | | [facility] | Provider Unknown | | | | | [address] [facility], | | | | | | [place] [address] | | | | | | [phone] | | | +--------+ + + + [...] | | | | | [place] [address] | | | | | | [phone] | | | | | | | | +--------+ + + + + | 10/30/ | Office | Primary Care | Erika Ernst, | | | 2019 | Visit | | DO [address] [place] | | | | | | [place] [address] | | | | | | [phone] | | | | | | | [...] [place] | | | | | | [address] | | | | | | [phone] | | | | | | | | +--------+ + + + + | 02/09/ | Office | Neurology | Dhara, | | | 2019 | Visit | | DWA[address] Ross [address] | | | | | [address] [place], | | | | | | [place] [address] | | | | | | [phone] | | | | | | | | +--------+ + + + + documented as of this encounter Visit Diagnoses Not on filedocumented in this encounter"
--- OUTSIDE RECORDS SUMMARY | ~2019-09-30 | XMS | Encounter Summary ---
Demographics + + + | Address | [address] | | | [place] [address] | + + + | Home Phone [...] Team Providers + +------+ + | Care Emulsion Coater Name | Role | Phone | + +------+ + PCP | Unavailable | + +------+ + Encounter Details +--------+ + + + + | Date | Type | Department | Care Team | Description | +--------+ + + + + | 10/30/ | Hospital | [place] [facility] | Jenise Benitez, | | | 2015 | Encounter | HOSPITAL NURSERY | QUANTITATIVE RESEARCH ANALYST [address] | | | | | [address] [place] | [place] [address] | | | | | [place], [place] | [phone] | | | | | [address] | | | | | | [phone] | | | +--------+ + + + [...] | | | | | [place] [address] | | | | | | [phone] | | | | | | | | +--------+ + + + + | 10/30/ | Office | Primary Care | Erika Ernst, | | | 2019 | Visit | | DO [address] [place] | | | | | | [place] [address] | | | | | | [phone] | | | | | | | [...] [place] | | | | | | [address] | | | | | | [phone] | | | | | | | | +--------+ + + + + | 02/09/ | Office | Neurology | Dhara, | | | 2020 | Visit | | DWAINE Ross [address] | | | | | [address] [place], | | | | | | [place] [address] | | | | | | [phone] | | | | | | | | +--------+ + + + + documented as of this encounter Visit Diagnoses Not on filedocumented in this encounter"
--- OUTSIDE RECORDS SUMMARY | ~2019-09-30 | XMS | Encounter Summary ---
Demographics + + + | Address | [address] | | | [place] [address] | + + + | Home Phone [...] Team Providers + +------+ + | Care Geophysical Observer Name | Role | Phone | + [...] | Encounter | HOSPITAL XRAY [address] | FACILITY DESIGNER-SPECIALTY MOLDER [address] | index finger, | | | | [place] | [address] [place] | initial encounter | | | | [place], [place] | [place] [address] | | | | | [address] | [phone] | | | | | [phone] | | | +--------+ + + + [...] | 04/12/20 | | | (VITAMIN D3) 67487 | mouth Once a week | tablet [...] | | | | | [place] [address] | | | | | | [phone] | | | | | | | | +--------+ + + + + | 10/30/ | Office | Primary Care | Erika Ernst, | | | 2019 | Visit | | DO [address] [place] | | | | | | [place] [address] | | | | | | [phone] | | | | | | | [...] [place] | | | | | | [address] | | | | | | [phone] | | | | | | | | +--------+ + + + + | 02/09/ | Office | Neurology | Dhara, | | | 2020 | Visit | | DWA[address] Ross [address] | | | | | | [address] [place], | | | | | | [place] [address] | | | | | | [phone] | | | | | | | [...]
--- OUTSIDE RECORDS SUMMARY | ~2019-09-30 | XMS | Encounter Summary ---
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 | | paranasal sinus; | | | [...] will add the chronic ear issue and condominium 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
--- OUTSIDE RECORDS SUMMARY | ~2019-09-30 | XMS | Encounter Summary ---
Demographics + + + | Address | [address] | | | [place] [address] | + + + | Home Phone [...] Team Providers + +------+ + | Care Recessing Machine Operator Name | Role | Phone [...] | [facility] [place] [address] | | | | | [address] [facility], | [phone] | | | | | [place] [address] | | | | | | [phone] | | | +--------+ + + + [...] | | | | | [place] [address] | | | | | | [phone] | | | | | | | | +--------+ + + + + | 10/30/ | Office | Primary Care | Erika Ernst, | | | 2019 | Visit | | DO [address] [place] [address] | | | | | | [place] [address] | | | | | | [phone] | | | | | | | [...] [place] | | | | | | [address] | | | | | | [phone] | | | | | | | | +--------+ + + + + | 02/09/ | Office | Neurology | Dhara, | | | 2019 | Visit | | [address]WA[address] Ross [address] | | | | | | [address] [place], | | | | | | [place] [address] | | | | | | [phone] | | | | | | | | +--------+ + + + + documented as of this encounter Visit Diagnoses Not on filedocumented in this encounter"
--- OUTSIDE RECORDS SUMMARY | ~2019-09-30 | XMS | Encounter Summary ---
Demographics + + + | Address | [address] | | | [place] [address] | + + + | Home Phone [...] Team Providers + +------+ + | Care Radiator Repairer Name | Role | Phone | [...] | | | to [place] [address] | [place] | | | | | calories | Phone: | [phone] | | | | | without | [phone] | Phone: | | | | | serious | Fax: | [phone] | | | | | comorbidity | [phone] | Fax: | | | | | with body | | [phone] | | | | | mass index [...] | | | | | [place] [facility] | | | | | [...] + | 06/06/ | Hospital | [place] [facility] | Erika Ernst, | Essential | | 2019 | Encounter | HOSPITAL NUTRITION | DO [address] | hypertension, | | | | SERVICES [address] | [place] [address] | malignant; Morbid | | | | DR [place] | [phone] | obesity (HCC); Body | | | | [address] | | mass index | | | | [phone] | Janel Webster, | 50.0-59.9, adult | | | | | RD | ([facility]); Dietary | | | | | | [...] | 04/12/20 | | | (VITAMIN D3) 81139 | mouth Once a week | tablet [...] encounter Progress Notes Janel Webster, RD - 06/06/2019 3:35 PM PDTAssessment: Dx: [...] | | | | | [place] [address] | | | | | | [phone] | | | | | | | | +--------+ + + + + | 10/30/ | Office | Primary Care | Erika Ernst, | | | 2019 | Visit | | DO [address] [place] | | | | | | [place] [address] | | | | | | [phone] | | | | | | | | +--------+ + + + + | 11/07/ | Appointment | Nutrition | Janel Webster | | | 2019 | | | [facility] | | +--------+ + + + + | 11/28/ | Office | Otolaryngology | Antohny Alvarado MD | | | 2019 | Visit | | [address] | | | | | | [place] | | | | | | [address] | | | | | | [phone] | | | | | | | | +--------+ + + + + | 02/09/ | Office | Neurology | Dhara, | | | 2019 | Visit | | DWAINE Ross [address] | | | | | | [address] [place], | | | | | | [place] [address] | | | | | | [phone] | | | | | | | [...]
--- OUTSIDE RECORDS SUMMARY | ~2019-09-30 | XMS | Encounter Summary ---
Demographics + + + | Address | [address] | | | [place] [address] | + + + | Home Phone [...] Providers + +------+ + | Care Lumber Carrier Operator Name | Role | Phone | [...] | [address] [place], [place] | [place] [address] | | | | | [address] | [phone] | | | | | [phone] | | | +--------+ + + + [...] | | | | | [place] [address] | | | | | | [phone] | | | | | | | | +--------+ + + + + | 10/30/ | Office | Primary Care | Erika Ernst, | | | 2019 | Visit | | DO [address] [place] | | | | | | [place] [address] | | | | | | [phone] | | | | | | | [...] [place] | | | | | | [address] | | | | | | [phone] | | | | | | | | +--------+ + + + + | 02/09/ | Office | Neurology | Dhara, | | | 2020 | Visit | | [address]WA[address] Ross [address] | | | | [address] [place], | | | | | | [place] [address] | | | | | | [phone] | | | | | | | | +--------+ + + + + documented as of this encounter Visit Diagnoses Not on filedocumented in this encounter"
--- OUTSIDE RECORDS SUMMARY | ~2019-09-30 | XMS | Encounter Summary ---
Demographics + + + | Address | [address] | | | [place] [address] | + + + | Home Phone [...] Team Providers + +------+ + | Care Analog Device Designer Name | Role | Phone | [...] Concerns | | 2019 | | [facility] | DO [address] | | | | | [facility]ICAL [facility] [address] | [place] [address] | | | | | [address] [place], | [phone] | | | | | [place] [address] | | | | | | [phone] | | | +--------+ + + + [...] | | | | | [place] [address] | | | | | | [phone] | | | | | | | | +--------+ + + + + | 10/30/ | Office | Primary Care | Erika Ernst, | | | 2019 | Visit | | DO [address] | | | | | | [place] [address] | | | | | | [phone] | | | | | | | [...] [place] | | | | | | [address] | | | | | | [phone] | | | | | | | | +--------+ + + + + | 02/09/ | Office | Neurology | Dhara, | | | 2020 | Visit | | [address]WA[address] | | | | | | [address] [place], | | | | | | [place] [address] | | | | | | [phone] | | | | | | | | +--------+ + + + + documented as of this encounter Visit Diagnoses Not on filedocumented in this encounter"
--- OUTSIDE RECORDS SUMMARY | ~2019-09-30 | XMS | Encounter Summary ---
Demographics + + + | Address | [address] | | | [place] [address] | + + + | Home Phone [...] Team Providers + +------+ + | Care Development Expert Name | Role | Phone | [...] + + | Authorized | Specialty | Oral Surgery | Diagnoses | [place], | Sivakumar, | | | Services | | TMJ | Erika Salter DO | MD Carlos | | | Required | | (temporomand | [address] | [address] | | | | | ibular joint | [place], | [address] | | | | | disorder) | [place] [address] | [address] [place], | | | | | | Phone: | [place] | | | | | | [phone] | [address] | | | | | | Fax: | Phone: | | | | | | [phone] | [phone] | | | | | | | Fax: | | | | | | | [phone] | + + + + + + [...] + | 05/02/ | Office | [place] [facility] | Erika Ernst, | TMJ | | 2019 | Visit | [facility] | DO [address] | (temporomandibular | | | | [facility] | [place] [address] | joint disorder) | | | | [address] [facility], | [phone] | (Primary Dx); | | | | [place] [address] | | Insomnia due to | | | | [phone] | | other mental | | | [...] m the original. Subjective: Patient ID: Andrea Noblit is a 29 y.o. female. Here to [...] wrist surgery today. She has appointment with beater room helper Jun 23 for her asthma. No increased [...] [facility] tenosynovectomy on 03/20/19 Plan: Referral to [facility] oral surgeon. Xray right ankle and continue ice and elevation as needed. Elaine veras OTC 10-15 mg at HS prn sleep. She will continue plans for OTC for wrist. Keep pulal nology appointment Jun 23. documented in this en counter Plan of Treatment +--------+ + + + + | Date | Type | Specialty | Care Team | Description | +--------+ + + + + | 10/01/ | Office | Primary Care | Erika Ernst, | | | 2018 | Visit | | DO [address] | | | | | | [facility] [place] [address] | | | | | | [phone] | | | | | | | | +--------+ + + + + | 10/30/ | Office | Primary Care | Erika Ernst, | | | 2019 | Visit | | DO [address] [place] | | | | | | [place] [address] | | | | | | [phone] | | | | | | | [...] [place] | | | | | | [address] | | | | | | [phone] | | | | | | | | +--------+ + + + + | 02/09/ | Office | Neurology | Dhara, | | | 2019 | Visit | | [address] | | | | | | [address] [place], | | | | | | [place] [address] | | | | | | [phone] | | | | | | | [...]
--- OUTSIDE RECORDS SUMMARY | ~2019-09-30 | XMS | Encounter Summary ---
Demographics + + + | Address | [address] | | | [place] [address] | + + + | Home Phone [...] Team Providers + +------+ + | Care Diamond Grader Name | Role | Phone | + [...] Medication Refill; | | 2019 | | [facility] | DO [address] | Medication Question | | | | MEDICAL CLIN[facility] [address] | [place] [address] | (Please have DrCarmen | | | | [address] [place], | [phone] | Klever call patient | | | | [place] [address] | | Monday re: | | | | [phone] | | medication | | | | [...] | | | | | [place] [address] | | | | | | [phone] | | | | | | | | +--------+ + + + + | 10/30/ | Office | Primary Care | Erika Ernst, | | | 2019 | Visit | | DO [address] [place] | | | | | | [place] [address] | | | | | | [phone] | | | | | | | [...] [place] | | | | | | [address] | | | | | | [phone] | | | | | | | | +--------+ + + + + | 02/09/ | Office | Neurology | Dhara, | | | 2020 | Visit | | [address] | | | | | [address] [place], | | | | | | [place] [address] | | | | | | [phone] | | | | | | | | +--------+ + + + + documented as of this encounter Visit Diagnoses Not on filedocumented in this encounter"
--- OUTSIDE RECORDS SUMMARY | ~2019-09-30 | XMS | Encounter Summary ---
Demographics + + + | Address | [address] | | | [place] [address] | + + + | Home Phone [...] Providers + +------+ + | Care Content Assistant Name | Role | Phone | [...] Orthopedic | Diagnoses | Tank [facility] | | | Services | Surgery | Sprain of | Erika A, DO | Orthopedic | | | Required | | calcaneofibu | [address] | [address] | | | | | lar ligament | [place], | [place] | | | | | of left | [place] [address] | [place], [place] | | | | | ankle, | Phone: | [phone] | | | | | initial | [phone] | Phone: | | | | | encounter | Fax: | [phone] | | | | | Procedures | [phone] | Fax: | | | | | [place] | | [phone] | +--------+ + + + + + Evaluate & Treat (Routine) +--------+ + + + + + | Status | Reason | Specialty | Diagnoses / | Referred By | Referred To | | | | | Procedures | Contact | Contact | +--------+ + + + + + | Closed | Specialty | Physical | Diagnoses | Klever | [facility] | | | Services | Therapy / | Sprain of | Erika A, DO | Therapy Pt | | | Required | Rehabilitatio | calcaneofibu | [address] | [address] | | | | n | lar ligament | [place], | [place] | | | | | of left | [place] [address] | [place] [address] | | | | | ankle, | Phone: | Phone: | | | | | initial | [phone] | [phone] | | | | | encounter | Fax: | Fax: | | | | | Procedures | [phone] | [phone] | | | | | PT EVAL AND | | | | | | | TREAT | | | +--------+ + + + + + Reason for Visit +--------+ + | Reason | Comments | +--------+ + | Other | f/u work comp new injury left ankle | +--------+ + Encounter Details +--------+---------+ + + + | Date | Type | Department | Care Team | Description | +--------+---------+ + + + | 06/06/ | Office | [place] [facility] | Erika Ernst, | Sprain of | | 2018 | Visit | [facility] | DO [address] | calcaneofibular | | | | MEDICAL [facility] [address] | [place] [address] | ligament of left | | | | [address] [place], | [phone] | ankle, initial | | | | [place] [address] | | encounter (Primary | | | | [phone] | | Dx) | +--------+---------+ + + [...] + + + | Blood Pressure | 150/76 | 06/06/2018 4:13 PM | | | | | PDT | | + + + + + | Pulse | 80 | 06/06/2018 4:13 PM | | | | | PDT | | + + + + + | Temperature | - | - | | + + + + + | Respiratory Rate | 16 | 06/06/2018 4:13 PM | | | | | PDT | | + + + + + | Oxygen Saturation | 100% | 06/06/2018 4:13 PM | | | | | PDT | | + + + + + | Inhaled Oxygen | - | - | | | Concentration | | | | + + + + + | Weight | 166.5 kg (367 lb) | 06/06/2018 4:13 PM | | | | | PDT | | + + + + + | Height | 167.6 cm (5' 6") | 06/06/2018 4:13 PM | | | | | PDT | | + + + + + | Body Mass Index | 59.24 | 06/06/2018 4:13 PM | | | | | PDT | | + + + + + documented in this encounter Progress Notes Erika Ernst DO - 06/06/2018 4:00 PM PDTFormatting of this note might be different fro m the original. Subjective: Patient ID: Andrea Suh is a 28 y.o. female. Here with a left ankle sprain that occurred 05/31/2018 when she slipped on a area of leaves and dirt in the parking lot at work. She was seen in the ER and xrays were negative. She was given naproxen BID, a air splint and recommended to ice and elevated the ankle. She was giv en a note for work to do duties allowing her to sit and work. She has movement in the ankle but still with pain and swelling with bruising. The ankle has not had any laxity. She also f ell on the right knee and both palms of her hands but states the abraided areas are healed a nd only mild soreness in the knee. She agrees to PT and to see ortho for FU. States the nap roxen is not enough for pain and we will do ultram short term. Discussed addiction issues of narcotics and she understands. Review of Systems Constitutional: Negative. Respiratory: Negative. Cardiovascular: Negative. Musculoskeletal: Ankle as above Skin: Bruising of the ankle as above Neurological: Negative. Hematological: Negative. Social History Social History Marital status: [...] Tape Rash Outpatient Encounter Prescriptions as of 06/06/2018 Medication Sig Dispense Refill amLODIPine (NORVASC) 5 mg tablet Take 1 tablet by mouth Daily. 30 tablet 11 [DISCONTINUED] azithromycin (ZITHROMAX) 500 MG tablet Take 500 mg daily x 7 days 7 tabl et 0 beclomethasone (QVAR) 80 mcg/puff inhaler Inhale 1 puff into the lungs 2 times daily. 1 Inhaler 11 busPIRone (BUSPAR) 5 mg tablet Take 1 tablet by mouth 3 times daily. 30 tablet 0 Cholecalciferol (VITAMIN D3) 81133 units TABS Take 1 tablet by mouth Once a week for 16 doses. 16 tablet 0 ferrous sulfate 325 mg tablet Take by mouth. fexofenadine (JOSÉ ANTONIO ALLERGY) 180 mg tablet Take by mouth. montelukast (SINGULAIR) 10 mg tablet Take by mouth. naproxen (NAPROSYN) 500 mg tablet Take 500 mg by mouth 2 times daily (with breakfast & dinner). [DISCONTINUED] predniSONE (DELTASONE) 10 mg tablet TAKE 6 TABS BY MOUTH FOR 5 DAYS, THE N 4 TABS FOR 1 DAY, THEN 3 TABS FOR 1 DAY, THEN 2 TABS FOR 1 DAY, THEN 1 TAB FOR 1 DAY, THEN 1/2 TAB FOR 41 tablet 0 traMADol (ULTRAM) 50 mg tablet Take 1 tablet by mouth every 8 hours as needed. 30 table t 0 VENTOLIN HFA 108 (90 Base) MCG/ACT inhaler INSTILL 2 PUFFS BY MOUTH EVERY 4 TO 6 HOURS NEEDED 18 g 11 No facility-administered encounter medications on file as of 06/06/2018. Objective: BP 150/76 | Pulse 80 | Resp 16 | Ht 1.676 m (5' 6") | Wt (!) 166.5 kg (367 lb) | LMP (LMP Unknown) | SpO2 100% | ? No | BMI 59.24 kg/m Physical Exam Constitutional: She is oriented to person, place, and time. She appears well-developed and well-nourished. No distress. HENT: Head: Normocephalic and atraumatic. Mouth/Throat: Oropharynx is clear and moist. Eyes: Conjunctivae and EOM are normal. Right eye exhibits no discharge. Left eye exhibits n o discharge. Cardiovascular: Normal rate, regular rhythm and normal heart sounds. No murmur heard. Pulmonary/Chest: Effort normal and breath sounds normal. No respiratory distress. She has n o wheezes. She has no rales. Musculoskeletal: Left ankle with 2 + swelling and lateral malleolar bruising. No laxity with anterior or pos terior passive movement of the ankle joint and is able to ambulate and do ROM. Positive peda l pulse. Neurological: She is alert and oriented to person, place, and time. Skin: Skin is warm and dry. Bruising of left ankle as above Psychiatric: She has a normal mood and affect. Her behavior is normal. Judgment and thought content normal. Assessment: 1. Sprain of calcaneofibular ligament of left ankle, initial encounter * [facility] - AMB Referral AMB Referral to [facility] Plan: Ultram 50 mg every 8 hour prn and gave 30 tabs. No refills. PT referral and ortho referral for FU. Letter confirming the ER docs recommendation to light duty at work with sitting acti vities only. FU after seen by PT and ortho in about 2 weeks. documented in this en counter Plan of Treatment +--------+ + + + + | Date | Type | Specialty | Care Team | Description | +--------+ + + + + | 10/01/ | Office | Primary Care | Erika Ernst, | | | 2018 | Visit | | DO [address] [place] | | | | | | [place] [address] | | | | | | [phone] | | | | | | | | +--------+ + + + + | 10/30/ | Office | Primary Care | Erika Ernst, | | | 2019 | Visit | | DO [address] [place] | | | | | | [place] [address] | | | | | | [phone] | | | | | | | [...] [place] | | | | | | [address] | | | | | | [phone] | | | | | | | | +--------+ + + + + | 02/09/ | Office | Neurology | Dhara, | | | 2019 | Visit | | DWA[address] Ross [address] | | | | [address] [place], | | | | | | [place] [address] | | | | | | [phone] | | | | | | | | +--------+ + + + + + + +--------+ + + | Name | Type | Priori | Associated Diagnoses | Order Schedule | | | | ty | | | + + +--------+ + + | * [place] [facility] | Outpatient | Routin | Sprain [...] Sprain of | Ordered: 06/06/2018 | | [facility] | Referral | e | calcaneofibular | | | | | | ligament of left | | | | | | ankle, initial | | | | | | encounter | | + + +--------+ + + documented as of this encounter Visit Diagnoses + + | Diagnosis | + + | Sprain of calcaneofibular ligament of left ankle, initial encounter - Primary | + + documented in this encounter
--- OUTSIDE RECORDS SUMMARY | ~2019-09-30 | XMS | Encounter Summary ---
Demographics + + + | Address | [address] | | | [place] [address] | + + + | Home Phone [...] Team Providers + +------+ + | Care Sizing Sponger Name | Role | Phone | + [...] Pressure | | 2019 | | [facility] | DO [address] | | | | | MEDICAL CL[facility] [address] | [place] [address] | | | | | [address] [place], | [phone] | | | | | [place] [address] | | | | | | [phone] | | | +--------+ + + + [...] | | | | | [place] [address] | | | | | | [phone] | | | | | | | | +--------+ + + + + | 10/30/ | Office | Primary Care | Erika Ernst, | | | 2019 | Visit | | DO [address] [place] | | | | | | [place] [address] | | | | | | [phone] | | | | | | | [...] [place] | | | | | | [address] | | | | | | [phone] | | | | | | | | +--------+ + + + + | 02/09/ | Office | Neurology | Dhara, | | | 2019 | Visit | | [address]WA[address] | | | | | [address] [place], | | | | | | [place] [address] | | | | | | [phone] | | | | | | | | +--------+ + + + + documented as of this encounter Visit Diagnoses Not on filedocumented in this encounter"
--- OUTSIDE RECORDS SUMMARY | ~2019-09-30 | XMS | Encounter Summary ---
Demographics + + + | Address | [address] | | | [place] [address] | + + + | Home Phone [...] Team Providers + +------+ + | Care Stockbroking Dealer Name | Role | Phone | + +------+ + PCP | Unavailable | + +------+ + Encounter Details +--------+ + + + + | Date | Type | Department | Care Team | Description | +--------+ + + + + | 04/13/ | [facility] | Caro Zendejas | | | 2015 | Encounter | [facility] | [place], SURGICAL ELASTIC KNITTER HAND FRAME [address] | | | | | [facility] | [facility], [place] | | | | | 4TH [facility], | [address] | | | | | [place] [address] | [phone] | | | | | [phone] | | | +--------+ + + + [...] | | | | | [place] [address] | | | | | | [phone] | | | | | | | | +--------+ + + + + | 10/30/ | Office | Primary Care | Erika Ernst, | | | 2019 | Visit | | DO [address] | | | | | | [place] [address] | | | | | | [phone] | | | | | | | [...] [place] | | | | | | [address] | | | | | | [phone] | | | | | | | | +--------+ + + + + | 02/09/ | Office | Neurology | Dhara, | | | 2020 | Visit | | [address] | | | | | | [address] [place], | | | | | | [place] [address] | | | | | | [phone] | | | | | | | | +--------+ + + + + documented as of this encounter Visit Diagnoses Not on filedocumented in this encounter"
--- OUTSIDE RECORDS SUMMARY | ~2019-09-30 | XMS | Encounter Summary ---
Demographics + + + | Address | [address] | | | [place] [address] | + + + | Home Phone [...] Team Providers + +------+ + | Care Jar Capper Name | Role | Phone | + +------+ + PCP | Unavailable | + +------+ + Encounter Details +--------+ + + + + | Date | Type | Department | Care Team | Description | +--------+ + + + + | 04/06/ | Hospital | [place] [facility] | Tyrese Kee | | | 2013 | Encounter | [facility] | MD Peter [address] | | | | | [address] | [address] [place] | | | | | DR [place], [place] | [place] [address] | | | | | [address] | [phone] | | | | | [phone] | | | +--------+ + + + [...] [address] | | | | | | [phone] | | | | | | | | +--------+ + + + + | 10/30/ | Office | Primary Care | Erika Ernst, | | | 2019 | Visit | | DO [address] | | | | | | [place] [address] | | | | | | [phone] | | | | | | | [...] [place] | | | | | | [address] | | | | | | [phone] | | | | | | | | +--------+ + + + + | 02/09/ | Office | Neurology | Dhara, | | | 2020 | Visit | | [address] | | | | | | [address] [place], | | | | | | [place] [address] | | | | | | [phone] | | | | | | | | +--------+ + + + + documented as of this encounter Visit Diagnoses Not on filedocumented in this encounter"
--- OUTSIDE RECORDS SUMMARY | ~2019-09-30 | XMS | Encounter Summary ---
Demographics + + + | Address | [address] | | | [place] [address] | + + + | Home Phone [...] Team Providers + +------+ + | Care Peripheral Edp Equipment Operator Name | Role | Phone [...] | | | MEDICAL CLIN[facility] [address] | [place] [address] | joint disorder) | | | | [address] [facility], | [phone] | (Primary Dx) | | | | [place] [address] | | | | | | [phone] | | | +--------+---------+ + + + [...] have made referral to oral surgeon at [facility] since she has failed conservative Tx for [...] appointment as planned with oral surgeon at [facility]. S moises hydrated and do not overdo [...] | | | | | [place] [address] | | | | | | [phone] | | | | | | | | +--------+ + + + + | 10/30/ | Office | Primary Care | Erika Ernst, | | | 2019 | Visit | | DO [address] [place] | | | | | | [place] [address] | | | | | | [phone] | | | | | | | [...] [place] | | | | | | [address] | | | | | | [phone] | | | | | | | | +--------+ + + + + | 02/09/ | Office | Neurology | Dhara, | | | 2020 | Visit | | [address] | | | | | | 4TH [facility], | | | | | | [place] [address] | | | | | | [phone] | | | | | | | | +--------+ + + + + documented as of this encounter Visit Diagnoses + + | Diagnosis | + + | TMJ (temporomandibular joint disorder) - Primary Temporomandibular joint disorders, | | unspecified | + + documented in this encounter
--- OUTSIDE RECORDS SUMMARY | ~2019-09-30 | XMS | Encounter Summary ---
Demographics + + + | Address | [address] | | | [place] [address] | + + + | Home Phone [...] Team Providers + +------+ + | Care Desk Assistant Name | Role | Phone | [...] | [address] [place], [place] | [place] [address] | complicated, | | | | [address] | | unspecified whether | | | | [phone] | (Fax) | persistent (Primary | | [...] | | | | | [place] [address] | | | | | | [phone] | | | | | | | | +--------+ + + + + | 10/30/ | Office | Primary Care | Erika Ernst, | | | 2019 | Visit | | DO [address] | | | | | | [place] [address] | | | | | | [phone] | | | | | | | [...] [place] | | | | | | [address] | | | | | | [phone] | | | | | | | | +--------+ + + + + | 02/09/ | Office | Neurology | Dhara, | | | 2019 | Visit | | Karyanne, PROGRAMMING INTERN [address] | | | | | | 4TH [facility] [place], | | | | | | [place] [address] | | | | | | [phone] | | | | | | | [...]
--- OUTSIDE RECORDS SUMMARY | ~2019-09-30 | XMS | Encounter Summary ---
Demographics + + + | Address | [address] | | | [place] [address] | + + + | Home Phone [...] Team Providers + +------+ + | Care Nuclear Weapons Specialist Name | Role | Phone | [...] | | | | | | [place] [address] | [address] | | | | | | Phone: | [place], [place] | | | | | | [phone] | [address] Phone: | | | | | | Fax: | [phone] | | | | | | [phone] | Fax: | | | | | | | [phone] | + + + + + + [...] | MEDICAL CLINIC [address] | [place] [address] | (Primary Dx); PTSD | | | | [address] [place], | [phone] | (post-traumatic | | | | [place] [address] | | stress disorder); | | | | [phone] | | Encounter for | | | [...] | | | | | [place] [address] | | | | | | [phone] | | | | | | | | +--------+ + + + + | 10/30/ | Office | Primary Care | Erika Ernst, | | | 2019 | Visit | | DO [address] [place] | | | | | | [place] [address] | | | | | | [phone] | | | | | | | [...] [place] | | | | | | [address] | | | | | | [phone] | | | | | | | | +--------+ + + + + | 02/09/ | Office | Neurology | Dhara, | | | 2019 | Visit | | [address] | | | | | | [address] [place], | | | | | | [place] [address] | | | | | | [phone] | | | | | | | [...] | + + + + + | [facility] | [address] | [place] [address] | [phone] | | [facility] | | | [...]
--- OUTSIDE RECORDS SUMMARY | ~2019-09-30 | XMS | Encounter Summary ---
Demographics + + + | Address | [address] | | | [place] [address] | + + + | Home Phone [...] Team Providers + +------+ + | Care Gun Examiner Name | Role | Phone | [...] | | | [place], [place] | [address] | | | | | [address] | [phone] | | | | | [phone] | | | +--------+ + + + [...] | | | | | [place] [address] | | | | | | [phone] | | | | | | | | +--------+ + + + + | 10/30/ | Office | Primary Care | Erika Ernst, | | | 2019 | Visit | | DO [address] [place] | | | | | | [place] [address] | | | | | | [phone] | | | | | | | | +--------+ + + + + | 11/07/ | Appointment | Nutrition | Janel Webster | | | 2019 | | | [place] | | +--------+ + + + + | 11/28/ | Office | Otolaryngology | Anthony Alvarado MD | | 2019 | Visit | | [address] | | | | | | [place], [place] | | | | | | [address] | | | | | | [phone] | | | | | | | | +--------+ + + + + | 02/09/ | Office | Neurology | Dhara, | | | 2020 | Visit | | [address] | | | | | | [address] [place], | | | | | | [place] [address] | | | | | | [phone] | | | | | | | | +--------+ + + + + documented as of this encounter Visit Diagnoses Not on filedocumented in this encounter"
--- OUTSIDE RECORDS SUMMARY | ~2019-09-30 | XMS | Encounter Summary ---
Demographics + + + | Address | [address] | | | [place] [address] | + + + | Home Phone [...] Providers + +------+ + | Care Lead Maintenance Technician Name | Role | Phone | [...] | [place], [place] | [place] [address] | | | | | [address] | [phone] | | | | | [phone] | | | +--------+ + + + [...] | | | | | [place] [address] | | | | | | [phone] | | | | | | | | +--------+ + + + + | 10/30/ | Office | Primary Care | Erika Ernst, | | | 2019 | Visit | | DO [address] [facility] [address] | | | | | | [place] [address] | | | | | | [phone] | | | | | | | [...] [place] | | | | | | [address] | | | | | | [phone] | | | | | | | | +--------+ + + + + | 02/09/ | Office | Neurology | Dhara, | | | 2019 | Visit | | [address] | | | | | | [address] [place], | | | | | | [place] [address] | | | | | | [phone] | | | | | | | | +--------+ + + + + documented as of this encounter Visit Diagnoses Not on filedocumented in this encounter"
--- OUTSIDE RECORDS SUMMARY | ~2019-09-30 | XMS | Encounter Summary ---
Demographics + + + | Address | [address] | | | [place] [address] | + + + | Home Phone [...] Team Providers + +------+ + | Care Wig Maker Name | Role | Phone | [...] | [facility] [place] [address] | | | | | [address] [place], | [phone] | | | | | [place] [address] | | | | | | [phone] | | | +--------+ + + + [...] | | | | | [place] [address] | | | | | | [phone] | | | | | | | | +--------+ + + + + | 10/30/ | Office | Primary Care | Erika Ernst, | | | 2019 | Visit | | DO [address] [place] | | | | | | [place] [address] | | | | | | [phone] | | | | | | | [...] [place] | | | | | | [address] | | | | | | [phone] | | | | | | | | +--------+ + + + + | 05/11/ | Office | Neurology | Dhara, | | | 2019 | Visit | | [address] | | | | | | [address] [place], | | | | | | [place] [address] | | | | | | [phone] | | | | | | | | +--------+ + + + + documented as of this encounter Visit Diagnoses Not on filedocumented in this encounter"
--- OUTSIDE RECORDS SUMMARY | ~2019-09-30 | XMS | Encounter Summary ---
Demographics + + + | Address | [address] | | | [place] [address] | + + + | Home Phone [...] Providers + +------+ + | Care Machine Welder Name | Role | Phone | [...] | | | | s (de | [place], [place] | [place] [address] | | | | | quervain) | [address] | Phone: | | | | | Pain in | Phone: | [phone] | | | | | right wrist | [phone] | Fax: | | | | | Procedures | Fax: | [phone] | | | | | OT TREAT | [phone] | | +--------+--------+ + + + + [...] | | [address] [place] | [place] [address] | (Primary Dx); Right | | | | [place], [place] | [phone] | wrist pain | | | | [address] | | | | | | [phone] | Michela Azevedo, | | | | [...] | 11/26/19 | | | (VITAMIN D3) 34290 | mouth Once a week | tablet [...] Ordering Physician: Jeffrey Gandhi MD Claim #: [id number] Date of Injury: No data was found [...] Deviation: 21 Strength at last Assessment L Electronics Computer Mechanic Trial 1: 51 L Electronics Computer Mechanic Trial Average: 51 Right Hand Strength - Electronics Computer Mechanic (lbs) R Electronics Computer Mechanic Trial 1: 25 R Electronics Computer Mechanic Trial Average: 25 Current Strength Strength: R Electronics Computer Mechanic Trial 1: 24 R Electronics Computer Mechanic Trial Average: 24 Left Hand Strength - Electronics Computer Mechanic (lbs) L Electronics Computer Mechanic Trial 1: 41 L Electronics Computer Mechanic Trial Average: 41 Proposed Treatment Dates for Majoris Review Proposed treatments date: No data was found to No data was found Plan Treatment Plan/Interventions OT Oliqdnfeuc06172 - Therapeutic Ugrezqne46614 - Therapeutic Gllvefkmfy62530 - Self Care/ Home Wnorawqycs30221 - Manual Sqqnimj19201 - Orthotic/Prosthetic Iaeqhkhk09966 - Ultrasound9 7034 - Contrast Qror88750 - Paraffin BathSplinting Moist heat, cold therapy [...] 10/30/2018 Certification To: 01/22/2019 Treatment Plan/Interventions OT Updddhravn23145 - Therapeutic Lgdmimuo38056 - Therapeutic Efompxnhbp32186 - Self Care/Ho me Kzbgaemziw48629 - Manual Sesoyjh71453 - Orthotic/Prosthetic Fnphxtzi24557 - Dcxgqbpptq362 34 - Contrast Odma18053 - Paraffin BathSplinting Moist heat, cold therapy [...] period and is 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 Her arya b description may be changing which would decrease the physical demands of her work, making it more appropriate for her current status. 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 10/30/2018 - REASON FOR RE-CERTIFICATION: Andrea has received 12 Occupational Therapy treatme nts since 08/07/2018 following her right wrist surgery. 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 [facility] OT [address] [place] [address] Occupational Therapy Daily Treatment Note Date: 12/31/2018 [...] other week until she sees Dr. Noriega. Electronics Computer Mechanic strengthening protocol 5' 2x/day and isometrics are her HEP until next session. 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 Her arya b description may be changing which would decrease the physical demands of her work, making it more appropriate for her current status. 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 10/30/2018 - REASON FOR RE-CERTIFICATION: Andrea has received 12 Occupational Therapy treatme nts since 08/07/2018 following her right wrist surgery. 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 and pinch weakness and significant pain [...] in 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, and school bus technician and pinch weakness in the right [...] | | | | | [place] [address] | | | | | | [phone] | | | | | | | | +--------+ + + + + | 10/30/ | Office | Primary Care | Erika Ernst, | | | 2019 | Visit | | DO [address] [place] | | | | | | [place] [address] | | | | | | [phone] | | | | | | | [...] [place] | | | | | | [address] | | | | | | [phone] | | | | | | | | +--------+ + + + + | 02/09/ | Office | Neurology | Dhara, | | | 2019 | Visit | | [address] | | | | | | [address] [place], | | | | | | [place] [address] | | | | | | [phone] | | | | | | | | +--------+ + + + + documented as of this encounter Visit Diagnoses + + | Diagnosis | + + | Radial styloid tenosynovitis - Primary | + + | Right wrist pain Pain in joint, forearm | + + documented in this encounter"
--- OUTSIDE RECORDS SUMMARY | ~2019-09-30 | XMS | Encounter Summary ---
Demographics + + + | Address | [address] | | | [place] [address] | + + + | Home Phone [...] Team Providers + +------+ + | Care Orthodontist Name | Role | Phone | + [...] Concerns | | 2019 | | [facility] | DO [address] | | | | | MEDICAL CL[facility] [address] | [place] [address] | | | | | [address] [place], | [phone] | | | | | [place] [address] | | | | | | [phone] | | | +--------+ + + + [...] | | | | | [place] [address] | | | | | | [phone] | | | | | | | | +--------+ + + + + | 10/30/ | Office | Primary Care | Erika Ernst, | | | 2019 | Visit | | DO [address] | | | | | | [place] [address] | | | | | | [phone] | | | | | | | [...] [place] | | | | | | [address] | | | | | | [phone] | | | | | | | | +--------+ + + + + | 02/09/ | Office | Neurology | Dhara, | | | 2020 | Visit | | [address] | | | | | | [address] [place], | | | | | | [place] [address] | | | | | | [phone] | | | | | | | | +--------+ + + + + documented as of this encounter Visit Diagnoses Not on filedocumented in this encounter"
--- OUTSIDE RECORDS SUMMARY | ~2019-09-30 | XMS | Encounter Summary ---
Demographics + + + | Address | [address] | | | [place] [address] | + + + | Home Phone [...] Providers + +------+ + | Care Satellite Tv Technician Name | Role | Phone | [...] | [address] | | | | | [address] | | | | | | [phone] | | | +--------+--------+ + + + [...] | | | | | [place] [address] | | | | | | [phone] | | | | | | | | +--------+ + + + + | 10/30/ | Office | Primary Care | Erika Ernst, | | | 2019 | Visit | | DO [address] | | | | | | [place] [address] | | | | | | [phone] | | | | | | | [...] [place] | | | | | | [address] | | | | | | [phone] | | | | | | | | +--------+ + + + + | 02/09/ | Office | Neurology | Dhara, | | | 2019 | Visit | | Karyanne, ASSISTANT PROSECUTING ATTORNEY [address] | | | | | | [address] [place], | | | | | | [place] [address] | | | | | | [phone] | | | | | | | | +--------+ + + + + documented as of this encounter Visit Diagnoses Not on filedocumented in this encounter"
--- OUTSIDE RECORDS SUMMARY | ~2019-09-30 | XMS | Encounter Summary ---
Demographics + + + | Address | [address] | | | [place] [address] | + + + | Home Phone [...] Providers + +------+ + | Care Supervisory Examiner Name | Role | Phone | [...] Description | +--------+--------+ + + + | 09/18/ | Refill | [place] [facility] | Brandi Pitts | Medication Refill | | 2019 | | [facility] | DO [address] | | | | | [facility] [address] | [address] [place] | | | | | [address] [place], | [place] [address] | | | | | [place] [address] | [phone] | | | | | [phone] | | | +--------+--------+ + + + [...] | | | | | [place] [address] | | | | | | [phone] | | | | | | | | +--------+ + + + + | 10/30/ | Office | Primary Care | Erika Ernst, | | | 2019 | Visit | | DO [address] | | | | | | [place] [address] | | | | | | [phone] | | | | | | | [...] [place] | | | | | | [address] | | | | | | [phone] | | | | | | | | +--------+ + + + + | 02/09/ | Office | Neurology | Dhara, | | | 2020 | Visit | | [address] | | | | | | [address] [place], | | | | | | [place] [address] | | | | | | [phone] | | | | | | | | +--------+ + + + + documented as of this encounter Visit Diagnoses Not on filedocumented in this encounter"
--- OUTSIDE RECORDS SUMMARY | ~2019-09-30 | XMS | Encounter Summary ---
Demographics + + + | Address | [address] | | | [place] [address] | + + + | Home Phone [...] Providers + +------+ + | Care Air Conditioning Engineer Name | Role | Phone | [...] | [address] | | | | | [address] | | | | | | [phone] | | | +--------+--------+ + + + [...] | | | | | [place] [address] | | | | | | [phone] | | | | | | | | +--------+ + + + + | 10/30/ | Office | Primary Care | Erika Ernst, | | | 2019 | Visit | | DO [address] [place] [address] | | | | | | [place] [address] | | | | | | [phone] | | | | | | | [...] [place] | | | | | | [address] | | | | | | [phone] | | | | | | | | +--------+ + + + + | 02/09/ | Office | Neurology | Dhara, | | | 2019 | Visit | | [address] | | | | | | [address] [place], | | | | | | [place] [address] | | | | | | [phone] | | | | | | | | +--------+ + + + + documented as of this encounter Visit Diagnoses Not on filedocumented in this encounter"
--- OUTSIDE RECORDS SUMMARY | ~2019-09-30 | XMS | Encounter Summary ---
Demographics + + + | Address | [address] | | | [place] [address] | + + + | Home Phone [...] Pressure | | 2019 | | [facility] | DO [address] | | | | | MEDICAL CLIN[facility] [address] | [place] [address] | | | | | [address] [place], | [phone] | | | | | [place] [address] | | | | | | [phone] | | | +--------+ + + + [...] | | | | | [place] [address] | | | | | | [phone] | | | | | | | | +--------+ + + + + | 10/30/ | Office | Primary Care | Erika Ernst, | | | 2019 | Visit | | DO [address] [place] | | | | | | [place] [address] | | | | | | [phone] | | | | | | | [...] [place] | | | | | | [address] | | | | | | [phone] | | | | | | | | +--------+ + + + + | 02/09/ | Office | Neurology | Dhara, | | | 2019 | Visit | | [address] | | | | | | [address] [place], | | | | | | [place] [address] | | | | | | [phone] | | | | | | | | +--------+ + + + + documented as of this encounter Visit Diagnoses Not on filedocumented in this encounter"
--- OUTSIDE RECORDS SUMMARY | ~2019-09-30 | XMS | Encounter Summary ---
Demographics + + + | Address | [address] | | | [place] [address] | + + + | Home Phone [...] Providers + +------+ + | Care Block Sealer Name | Role | Phone | + +------+ + | Erika Ernst DO | PCP | | + +------+ + Reason for Visit +--------+ + | Reason | Comments | +--------+ + | Other | TMJ | +--------+ + Encounter Details +--------+---------+ + + + | Date | Type | Department | Care Team | Description | +--------+---------+ + + + | 04/16/ | Office | [facility] | Anthony Alvarado MD | Non-seasonal | | 2019 | Visit | [facility] | [address] | allergic rhinitis | | | | [address] [place] | [place], [place] | due to pollen | | | | [place] | [address] | (Primary Dx); | | | | [address] | [phone] | Deviated nasal | | | | [phone] | | septum | +--------+---------+ + + [...] +---------+ + + | Blood Pressure | 122/85 | 04/16/2019 1:58 PM | | | | | PDT | | + +---------+ + + | Pulse | 77 | 04/16/2019 1:58 PM | | | | | PDT | | + +---------+ + + | Temperature | - | - | | + +---------+ + + | Respiratory Rate | 16 | 04/16/2019 1:58 PM | | | | | PDT | | + +---------+ + + | Oxygen Saturation | 99% | 04/16/2019 1:58 PM | | | | | PDT [...] Instructions Patient Instructions Anthony Alvarado MD - 04/16/2019 2:00 PM PDTContinue your low-salt diet , follow-up with Dr. Ernst for referral to an oral surgeon who specializes in temporomandib ular joint disorders. Continue your allergy therapy. Have a follow-up hearing test in 1 ye ar and follow-up with either Dr. Wheeler or myself after that. Have the MRI scan of her br ain done which was ordered by Dr. Nichole.Electronically signed by Anthony Alvarado MD at 9 2:37 PM PDT documented in this encounter Progress Notes Anthony Alvarado MD - 04/16/2019 2:00 PM PDT Otolaryngology Follow Up Clinic Note For: Andrea Suh 28 y.o. [id number] On 04/16/2019, Andrea Suh was seen by Anthony Alvarado MD Past Medical History: Patient was last seen by myself in January 2017. At that time she carried the diagnosis of tem poromandibular joint syndrome and allergic rhinitis. She had been started on an intranasal steroid and nasal irrigations and at the last time I saw her I started her on Singulair. When I saw the patient last on November 20, 2018, she gave a history of having started traci rgy immunotherapy in [place]. She apparently started this in November 2018. She continued to have significant tenderness in her temporomandibular joint areas. At the time of my exam on November 20, 2018, her intranasal examination showed mildly boggy inferior turbinates. She did have a significant left septal deviation. There were no poly ps, mucopus or polypoid change. My assessment on November 20, 2018 was that she had just begun receiving allergy immunother apy and I was going to see her back and if symptoms persisted with regard to her nasal obstr uction we would discuss the potential utility of septoplasty. I recommended strongly that s he speak with her dentist about referral to an oral surgeon for her significant temporomandi bular joint discomfort. Patient's Primary Provider is Erika Ernst DO Prior Workup Includes: Laboratory: Patient had an essentially normal CBC with a slightly decreased hematocrit on 2018. Patient had slightly elevated white blood cell count on February 20, 2019 this had normalized by February 28, 2019. Radiology: Patient had a sinus CT scan done on December 13, 2018 this showed completely clear sinuses with no evidence of acute or chronic sinus disease. Pathology: None Current History of the present Illness: Patient was previously lost to follow-up with me. She returns today to discuss her temporo mandibular joint symptoms as well as her periodic episodes of vertigo and her diagnosis of p ossible Mnire's disease. She describes that as a young child she did fall and had significant trauma to her mandible . She has had problems with her temporomandibular joint for a number of years. On my prior examination she was found to have significant temporomandibular joint syndrome. She has us ed a dental splint but has not seen a specialist in temporomandibular joint disorders. With regard to her dizziness she has had episodes of dizziness which last up to 6-7 hours t hese are relatively infrequent, her last episode was a number of months ago. She does not d escribe hearing loss or loud tinnitus during these episodes but has had a sensation of fulln ess in her right ear. It's difficult for her at times to separate that from the discomfort she has with her temporomandibular joints. She does not have a family history of Mnire' s disease. She has not noted dramatic fluctuations in her hearing. Based on my review of t he audiograms which she has had done she has had essentially normal hearing on January 01, 2019 . She had normal tympanograms. She had essentially normal hearing in 2017 with her hearing in the right ear slightly worse than on her most recent audiogram. Medical Problem List: Patient Active Problem List [...] neck Moderate persistent asthma with acute exacerbation Meds: Current Outpatient Medications on File Prior [...] mouth. Once a week Cholecalciferol (VITAMIN D3) 28414 units TABS Take 1 tablet by mouth [...] tablet by mouth nightly. 30 tablet 11 predniSONE (DELTASONE) 10 mg tablet Take by mouth 6 tablets (60 mg) days 1-5; then 4 ta blets (40 mg) on day 6; then 3 tablets (30 mg) on day 7; then 2 tablets (20 mg) on day 8; th en 1 tablet (10 mg) on day 9; and 1/2 tablet (5 mg) on day 10 then stop 41 tablet 0 traMADol (ULTRAM) 50 mg tablet Take 1 tablet by mouth every 6 hours as needed. 30 table t 0 No current facility-administered medications on file prior to visit. Allergies: Allergies Allergen Reactions Latex Rash Lexapro [Escitalopram] Palpitations Oxycodone Anaphylaxis and Shortness Of Breath Deblitane [Norethindrone] Hydrocodone Hives Uncoded Nonscreenable Allergen Other (See Comments) Other reaction(s): Proclivity to C-diff with certain antibiotics Adhesive & Tape Rash Current Physical Exam: Vitals: 04/16/19 1358 BP: 122/85 Pulse: 77 Resp: 16 PainSc: 4 PainLoc: Jaw Examination today reveals: The right external ear [...] moves well with pneumatic otoscopy. Examination of her eyes reveal that her pupils are round and reactive to light. Her extrao cular movements are full. She has no enophthalmos or proptosis. She has no spontaneous nys tagmus and she has no nystagmus on the extremes of gaze. Examination of her nose reveals that her nasal mucosa is somewhat less boggy and on my prev ious examinations. She continues to have a relatively significant left septal deviation. T here is no mucopus or inflammation. Examination of her nasal pharynx reveals no mucosal les ions, inflammation or crusting. Examination of her oral cavity and oral pharynx demonstrates a significant overjet. She nam s with mouth opening a palpable and audible click. She has significant tenderness in the te mporomandibular joints with palpation. Examination of her hypopharynx and larynx reveals no mucosal lesions. Examination of her neck reveals no periparotid or cervical [id number] ASSESSMENT: Patient has severe temporomandibular joint dysfunction and I think that a signi ficant component of her symptoms is related to that with regard to her ear pain and potentia lly her ear pressure. I spoke with the patient at length regarding the diagnosis of Mnire's disease and expla ined to her that it is frequently a diagnosis that may take months or years to actually conf irm. We talked about the fact that given her normal hearing and her minimal symptoms that a low-dose diuretic or a low salt diet is reasonable intervention at this point. We talked a bout the assessment as did Dr. Wheeler That making a clear diagnosis of Mnire's disease can frequently be very difficult. PLAN: I encouraged her to follow-up with Dr. Ernst for referral to an oral surgeon who spe cializes in temporomandibular joint disorders. I encouraged her to follow-up with Dr. Arnulfo teran for a follow-up hearing examination in 1 year. She did not tolerate the diuretic and I encouraged her then to stay on a low salt diet. I strongly encouraged her to have the MRI s can of her brain which had previously been ordered by Dr. Nichole. CLINIC PROCEDURE PERFORMED:DIAGNOSTIC NASAL ENDOSCOPY Indications: History of allergic rhinitis and ear pain I spoke with the patient about the [...] escaped detection during review. Anthony Alvarado MD 04/16/2019 documented in this enco unter Plan of Treatment +--------+ + + + + | Date | Type | Specialty | Care Team | Description | +--------+ + + + + | 10/01/ | Office | Primary Care | Erika Ernst, | | | 2018 | Visit | | DO [address] [place] | | | | | | [place] [address] | | | | | | [phone] | | | | | | | | +--------+ + + + + | 10/30/ | Office | Primary Care | Erika Ernst, | | | 2019 | Visit | | DO [address] [place] | | | | | | [place] [address] | | | | | | [phone] | | | | | | | [...] [place] | | | | | | [address] | | | | | | [phone] | | | | | | | | +--------+ + + + + | 02/09/ | Office | Neurology | Dhara, | | | 2019 | Visit | | DWAINE Ross [address] [place], | | | | | | [place] [address] | | | | | | [phone] | | | | | | | | +--------+ + + + + documented as of this encounter Visit Diagnoses + + | Diagnosis | + + | Non-seasonal allergic rhinitis due to pollen - Primary | + + | Deviated nasal septum | + + documented in this encounter"
--- OUTSIDE RECORDS SUMMARY | ~2019-09-30 | XMS | Encounter Summary ---
Demographics + + + | Address | [address] | | | [place] [address] | + + + | Home Phone [...] Team Providers + +------+ + | Care Feather Drying Machine Operator Name | Role | Phone | + +------+ + PCP | Unavailable | + +------+ + Encounter Details +--------+ + + + + | Date | Type | Department | Care Team | Description | +--------+ + + + + | 10/28/ | [facility] | Caro Zendejas | | | 2013 | Encounter | [facility] | [place], PURCHASING INTERN [address] | | | | | MEDICAL CL[facility] [address] | [facility], [place] | | | | | [address]TH [facility], | [address] | | | | | [place] [address] | [phone] | | | | | [phone] | | | +--------+ + + + [...] | | | | | [place] [address] | | | | | | [phone] | | | | | | | | +--------+ + + + + | 10/30/ | Office | Primary Care | Erika Ernst, | | | 2019 | Visit | | DO [address] [place] | | | | | | [place] [address] | | | | | | [phone] | | | | | | | [...] [place] | | | | | | [address] | | | | | | [phone] | | | | | | | | +--------+ + + + + | 02/09/ | Office | Neurology | Dhara, | | | 2020 | Visit | | DWAINE Ross [address] [place], | | | | | | [place] [address] | | | | | | [phone] | | | | | | | | +--------+ + + + + documented as of this encounter Visit Diagnoses Not on filedocumented in this encounter"
--- OUTSIDE RECORDS SUMMARY | ~2019-09-30 | XMS | Encounter Summary ---
Demographics + + + | Address | [address] | | | [place] [address] | + + + | Home Phone [...] Team Providers + +------+ + | Care Cementer Name | Role | Phone | + +------+ + PCP | Unavailable | + +------+ + Encounter Details +--------+ + + + + | Date | Type | Department | Care Team | Description | +--------+ + + + + | 10/26/ | [facility] | Spenser Roberts NP | | | 2015 | Encounter | [facility] | [address], | | | | | MEDICAL CLIN[facility] [address] | [place] [address] | | | | | 4TH [facility], | [phone] | | | | | [place] [address] | | | | | | [phone] | | | +--------+ + + + [...] | | | | | [place] [address] | | | | | | [phone] | | | | | | | | +--------+ + + + + | 10/30/ | Office | Primary Care | Erika Ernst, | | | 2019 | Visit | | DO [address] [place] | | | | | | [place] [address] | | | | | | [phone] | | | | | | | [...] [place] | | | | | | [address] | | | | | | [phone] | | | | | | | | +--------+ + + + + | 02/09/ | Office | Neurology | Dhara, | | | 2020 | Visit | | DWAINE Ross [address] [place], | | | | | | [place] [address] | | | | | | [phone] | | | | | | | | +--------+ + + + + documented as of this encounter Visit Diagnoses Not on filedocumented in this encounter"
--- OUTSIDE RECORDS SUMMARY | ~2019-09-30 | XMS | Encounter Summary ---
Demographics + + + | Address | [address] | | | [place] [address] | + + + | Home Phone [...] Team Providers + +------+ + | Care Traffic And Transport Planner Name | Role | Phone | [...] Asthma | | 2019 | | [facility] | DO [address] | | | | | MEDICAL CLINIC [address] | [place] [address] | | | | | [address] [place], | [phone] | | | | | [place] [address] | | | | | | [phone] | | | +--------+ + + + [...] | | | | | [place] [address] | | | | | | [phone] | | | | | | | | +--------+ + + + + | 10/30/ | Office | Primary Care | Erika Ernst, | | | 2019 | Visit | | DO [address] [place] | | | | | | [place] [address] | | | | | | [phone] | | | | | | | [...] [place] | | | | | | [address] | | | | | | [phone] | | | | | | | | +--------+ + + + + | 02/09/ | Office | Neurology | Dhara, | | | 2019 | Visit | | DWAINE Ross [address] | | | | [address] [place], | | | | | | [place] [address] | | | | | | [phone] | | | | | | | | +--------+ + + + + documented as of this encounter Visit Diagnoses Not on filedocumented in this encounter"
--- OUTSIDE RECORDS SUMMARY | ~2019-09-30 | XMS | Encounter Summary ---
Demographics + + + | Address | [address] | | | [place] [address] | + + + | Home Phone [...] Team Providers + +------+ + | Care Moisture Meter Operator Name | Role | Phone | [...] | | | | s (de | [place], [place] | [place] [address] | | | | | quervain) | [address] | Phone: | | | | | Pain in | Phone: | [phone] | | | | | right wrist | [phone] | Fax: | | | | | Procedures | Fax: | [phone] | | | | | OT TREAT | [phone] | | +--------+--------+ + + + + [...] | | [address] | [place] [address] | wrist pain | | | | [place] | [phone] | | | | | [address] | | | | | | [phone] | Milla Gracia, OT | | +--------+ [...] OT - 08/20/2018 5:34 PM PST [facility]ER[facility] OT [address] [place] [address] Occupational Therapy Daily Treatment Note Date: 08/20/2018 [...] #4 OT INTERVENTION 2: TE (32 minutes): Php Architect with 3lb red ultigrip 3x10. Rolling hand [...] in 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, and consumer insight analyst and pinch weakness i n the right [...] | | | | | [place] [address] | | | | | | [phone] | | | | | | | | +--------+ + + + + | 10/30/ | Office | Primary Care | Erika Ernst, | | | 2019 | Visit | | DO [address] [place] | | | | | | [place] [address] | | | | | | [phone] | | | | | | | [...] [place] | | | | | | [address] | | | | | | [phone] | | | | | | | | +--------+ + + + + | 02/09/ | Office | Neurology | Dhara, | | | 2019 | Visit | | DWAINE Ross [address] [place], | | | | | | [place] [address] | | | | | | [phone] | | | | | | | | +--------+ + + + + documented as of this encounter Visit Diagnoses + + | Diagnosis | + + | Radial styloid tenosynovitis | + + | Right wrist pain Pain in joint, forearm | + + documented in this encounter"
--- OUTSIDE RECORDS SUMMARY | ~2019-09-30 | XMS | Encounter Summary ---
Demographics + + + | Address | [address] | | | [place] [address] | + + + | Home Phone [...] Providers + +------+ + | Care Supervisor Coke Handling Name | Role | Phone | + [...] cyst | | 2019 | | [facility] | DO [address] | | | | | MEDICAL CLINIC [address] | [place] [address] | | | | | [address] [place], | [phone] | | | | | [place] [address] | | | | | | [phone] | | | +--------+ + + + [...] | | | | | [place] [address] | | | | | | [phone] | | | | | | | | +--------+ + + + + | 10/30/ | Office | Primary Care | Erika Ernst, | | | 2019 | Visit | | DO [address] [place] | | | | | | [place] [address] | | | | | | [phone] | | | | | | | [...] [place] | | | | | | [address] | | | | | | [phone] | | | | | | | | +--------+ + + + + | 02/09/ | Office | Neurology | Dhara, | | | 2019 | Visit | | DWAINE Ross [address] | | | | [address] [place], | | | | | | [place] [address] | | | | | | [phone] | | | | | | | [...]
--- OUTSIDE RECORDS SUMMARY | ~2019-09-30 | XMS | Encounter Summary ---
Demographics + + + | Address | [address] | | | [place] [address] | + + + | Home Phone [...] Team Providers + +------+ + | Care Frame Nailer Name | Role | Phone | [...] [address] [place] | [place] [address] | | | | | [place], [place] | [phone] | | | | | [address] | | | | | | [phone] | | | +--------+ + + + [...] | 03/19/20 | | | (VITAMIN D3) 98960 | mouth Once a week | tablet [...] | | | | | [place] [address] | | | | | | [phone] | | | | | | | | +--------+ + + + + | 10/30/ | Office | Primary Care | Erika Ernst, | | | 2019 | Visit | | DO [address] [place] | | | | | | [place] [address] | | | | | | [phone] | | | | | | | [...] [place] | | | | | | [address] | | | | | | [phone] | | | | | | | | +--------+ + + + + | 02/09/ | Office | Neurology | Dhara, | | | 2019 | Visit | | Cody, SENIOR PUBLICATIONS SPECIALIST [address] | | | | | | [address] [facility] [place], | | | | | | [place] [address] | | | | | | [phone] | | | | | | | [...]
--- OUTSIDE RECORDS SUMMARY | ~2019-09-30 | XMS | Encounter Summary ---
Demographics + + + | Address | [address] | | | [place] [address] | + + + | Home Phone [...] Providers + +------+ + | Care Retail Associate Name | Role | Phone | + +------+ + | Erika Ernst DO | PCP | | + +------+ + Reason for Visit + + + | Reason | Comments | + + + | Medication Question | Problem w/Asthma | + + + Encounter Details +--------+ + + + + | Date | Type | Department | Care Team | Description | +--------+ + + + + | 07/01/ | Telephone | [place] [facility] | Erika Ernst, | Medication Question | | 2019 | | [facility] | DO [address] | (Problem w/Asthma) | | | | MEDICAL CLINIC [address] | [place] [address] | | | | | [address] [place], | [phone] | | | | | [place] [address] | | | | | | [phone] | | | +--------+ + + + [...] | | | | | [place] [address] | | | | | | [phone] | | | | | | | | +--------+ + + + + | 10/30/ | Office | Primary Care | Erika Ernst, | | | 2019 | Visit | | DO [address] [place] | | | | | | [place] [address] | | | | | | [phone] | | | | | | | [...] [place] | | | | | | [address] | | | | | | [phone] | | | | | | | | +--------+ + + + + | 02/09/ | Office | Neurology | Dhara, | | | 2020 | Visit | | DWAINE Ross [address] | [address] [place], | | | | | | [place] [address] | | | | | | [phone] | | | | | | | | +--------+ + + + + documented as of this encounter Visit Diagnoses Not on filedocumented in this encounter"
--- OUTSIDE RECORDS SUMMARY | ~2019-09-30 | XMS | Encounter Summary ---
Demographics + + + | Address | [address] | | | [place] [address] | + + + | Home Phone [...] Team Providers + +------+ + | Care Electronics Assembler Name | Role | Phone | [...] | | | [place], [place] | [address] | | | | | [address] | [phone] | | | | | [phone] | | | +--------+ + + + [...] | | | | | [place] [address] | | | | | | [phone] | | | | | | | | +--------+ + + + + | 10/30/ | Office | Primary Care | Erika Ernst, | | | 2019 | Visit | | DO [address] | | | | | | [place] [address] | | | | | | [phone] | | | | | | | [...] [place] | | | | | | [address] | | | | | | [phone] | | | | | | | | +--------+ + + + + | 02/09/ | Office | Neurology | Dhara, | | | 2020 | Visit | | DWAINE Ross [address] | | | | [address] [place], | | | | | | [place] [address] | | | | | | [phone] | | | | | | | | +--------+ + + + + documented as of this encounter Visit Diagnoses Not on filedocumented in this encounter"
--- OUTSIDE RECORDS SUMMARY | ~2019-09-30 | XMS | Encounter Summary ---
Demographics + + + | Address | [address] | | | [place] [address] | + + + | Home Phone [...] Team Providers + +------+ + | Care Rubber Ball Finisher Name | Role | Phone | [...] Medication Refill | | 2017 | | [facility] | DO [address] | | | | | MEDICAL CLINIC [address] | [place] [address] | | | | | [address] [place], | [phone] | | | | | [place] [address] | | | | | | [phone] | | | +--------+--------+ + + + [...] | | | | | [place] [address] | | | | | | [phone] | | | | | | | | +--------+ + + + + | 10/30/ | Office | Primary Care | Erika Ernst, | | | 2019 | Visit | | DO [address] [place] | | | | | | [place] [address] | | | | | | [phone] | | | | | | | [...] [place] | | | | | | [address] | | | | | | [phone] | | | | | | | | +--------+ + + + + | 02/09/ | Office | Neurology | Dhara, | | | 2019 | Visit | | DWAINE Ross [address] | | | [address] [place], | | | | | | [place] [address] | | | | | | [phone] | | | | | | | | +--------+ + + + + documented as of this encounter Visit Diagnoses + + | Diagnosis | + + | Asthma, unspecified asthma severity, unspecified whether complicated, unspecified | | whether persistent - Primary | + + documented in this encounter"
--- OUTSIDE RECORDS SUMMARY | ~2019-09-30 | XMS | Encounter Summary ---
Demographics + + + | Address | [address] | | | [place] [address] | + + + | Home Phone [...] Team Providers + +------+ + | Care Dean Of Graduate Studies Name | Role | Phone | + [...] | Hematology | | DWAINE Oconnor | [place] | | | Required | and Oncology | Leukocytosis | [address] | [place] | | | | | , | [place], | [address] | | | | | unspecified | [place] [address] | [place], | | | | | type | Phone: | [place] [address] | | | | | | [phone] | Phone: | | | | | | Fax: | [phone] | | | | | | [phone] | Fax: | | | | | | | [phone] | + + + + + + + Encounter Details +--------+ + + + + | Date | Type | Department | Care Team | Description | +--------+ + + + + | 02/20/ | Orders Only | [place] [facility] | Anastasia Alberto, | Leukocytosis, | | 2019 | | [facility] | WIRELESS MANAGER [address] | unspecified type | | | | MEDICAL CLINIC [address] | [place] [address] | (Primary Dx) | | | | [address] [place], | [phone] | | | | | [place] [address] | | | | | | [phone] | | | +--------+ + + + [...] | | | | | [place] [address] | | | | | | [phone] | | | | | | | | +--------+ + + + + | 10/30/ | Office | Primary Care | Erika Ernst, | | | 2019 | Visit | | DO [address] [place] | | | | | | [place] [address] | | | | | | [phone] | | | | | | | [...] [place] | | | | | | [address] | | | | | | [phone] | | | | | | | | +--------+ + + + + | 02/09/ | Office | Neurology | Dhara, | | | 2019 | Visit | | DWAINE Ross [address] | | | | | [address] [place], | | | | | | [place] [address] | | | | | | [phone] | | | | | | | [...]
--- OUTSIDE RECORDS SUMMARY | ~2019-09-30 | XMS | Encounter Summary ---
Demographics + + + | Address | [address] | | | [place] [address] | + + + | Home Phone [...] Team Providers + +------+ + | Care Blender Laborer Name | Role | Phone | [...] [address] | [place] [address] | | | | | [place], [place] | [phone] | | | | | [address] | | | | | | [phone] | | | +--------+ + + + [...] | | | | | [place] [address] | | | | | | [phone] | | | | | | | | +--------+ + + + + | 10/30/ | Office | Primary Care | Erika Ernst, | | | 2019 | Visit | | DO [address] [place] | | | | | | [place] [address] | | | | | | [phone] | | | | | | | [...] [place] | | | | | | [address] | | | | | | [phone] | | | | | | | | +--------+ + + + + | 02/09/ | Office | Neurology | Dhara, | | | 2019 | Visit | | Cody, FIRST OFFICER [address] | | | | | | [address] [facility], | | | | | | [place] [address] | | | | | | [phone] | | | | | | | [...]
--- OUTSIDE RECORDS SUMMARY | ~2019-09-30 | XMS | Encounter Summary ---
Demographics + + + | Address | [address] | | | [place] [address] | + + + | Home Phone [...] Providers + +------+ + | Care Assistant Teaching Professor Name | Role | Phone | [...] | | | | | | | [facility] REPR | | | | | | | FOREARM | | | | | | | TEND/MUSC,EX | | | | | | | TEN,PRIM,EA | | | | | | | [facility] REPR | | | | | | | FOREARM | | | | | | | TEND/MUSC,EX | | | | | | | TEN,SECOND | | | | | | | NH REPR | | | | | | [...] Event | HOSPITAL [facility] OP | FRUIT HARVEST WORKER [address] | | | | | [address] [place] | [place] [address] | | | | | [place], [place] | [phone] | | | | | [address] | | | | | | [phone] | | | +--------+ + + + + Anesthesia Record + + + + + | Procedure Name | Responsible | Anesthesia Start | Anesthesia Stop Time | | | Anesthesiologist | Time | | + + + + + | AURORA Peralta Tendon | Maxi Monique, | 03/20/19 09 | 03/20/19 1048 | | (Right Arm Lower) | FRUIT HARVEST WORKER | | | + + + + [...] +----+---+ + + | | 0 | [place] | | | | 9 | 43-degrees [...] 1220 by | | eral | Antecubital; [id number] | Elaine Phelan RN | Anastasia Ceron [...] | | Type: endotracheal; Removal Date: | FRUIT HARVEST WORKER | FRUIT HARVEST WORKER | | | 03/20/19; Removal Time: 1043 [...] | | | | | [place] [address] | | | | | | [phone] | | | | | | | | +--------+ + + + + | 10/30/ | Office | Primary Care | Erika Ernst, | | | 2019 | Visit | | DO [address] [place] | | | | | | [place] [address] | | | | | | [phone] | | | | | | | [...] [place] | | | | | | [address] | | | | | | [phone] | | | | | | | | +--------+ + + + + | 02/09/ | Office | Neurology | Dhara, | | | 2020 | Visit | | Cody AUTOMATIC CAR WASH ATTENDANT [address] | | | | | [address] [place], | | | | | | [place] [address] | | | | | | [phone] | | | | | | | [...]
--- OUTSIDE RECORDS SUMMARY | ~2019-09-30 | XMS | Encounter Summary ---
Demographics + + + | Address | [address] | | | [place] [address] | + + + | Home Phone [...] Providers + +------+ + | Care Medical Accountant Name | Role | Phone | [...] Question | | 2019 | | [facility] | DO [address] [place] | | | | | MEDICAL CLIN[facility] [address] | [facility] [place] [address] | | | | | [address] [place], | [phone] | | | | | [place] [address] | | | | | | [phone] | | | +--------+ + + + [...] | | | | | [place] [address] | | | | | | [phone] | | | | | | | | +--------+ + + + + | 10/30/ | Office | Primary Care | Erika Ernst, | | | 2019 | Visit | | DO [address] [place] | | | | | | [place] [address] | | | | | | [phone] | | | | | | | [...] [place] | | | | | | [address] | | | | | | [phone] | | | | | | | | +--------+ + + + + | 02/09/ | Office | Neurology | Dhara, | | | 2020 | Visit | | DWAINE Ross [address] | | | | | | [address] [place], | | | | | | [place] [address] | | | | | | [phone] | | | | | | | | +--------+ + + + + documented as of this encounter Visit Diagnoses Not on filedocumented in this encounter"
--- OUTSIDE RECORDS SUMMARY | ~2019-09-30 | XMS | Encounter Summary ---
Demographics + + + | Address | [address] | | | [place] [address] | + + + | Home Phone [...] Team Providers + +------+ + | Care Party Planner Name | Role | Phone | [...] | | | CENTER [address] | [facility] | | | | | [place] | [employer] [address] | | | | | [address] | [phone] | | | | | [phone] | | | +--------+ + + + [...] | | | | | [place] [address] | | | | | | [phone] | | | | | | | | +--------+ + + + + | 10/30/ | Office | Primary Care | Erika Ernst, | | | 2019 | Visit | | DO [address] [place] | | | | | | [place] [address] | | | | | | [phone] | | | | | | | [...] [place] | | | | | | [address] | | | | | | [phone] | | | | | | | | +--------+ + + + + | 02/09/ | Office | Neurology | Dhara, | | | 2020 | Visit | | DWAINE Ross [address] | | | | | | [address] [place], | | | | | | [place] [address] | | | | | | [phone] | | | | | | | | +--------+ + + + + documented as of this encounter Visit Diagnoses Not on filedocumented in this encounter"
--- OUTSIDE RECORDS SUMMARY | ~2019-09-30 | XMS | Encounter Summary ---
Demographics + + + | Address | [address] | | | [place] [address] | + + + | Home Phone [...] Team Providers + +------+ + | Care Analytics Senior Manager Name | Role | Phone | [...] | [place], [place] | [place] [address] | | | | | [address] | [phone] | | | | | [phone] | | | +--------+ + + + [...] | | | | | [place] [address] | | | | | | [phone] | | | | | | | | +--------+ + + + + | 10/30/ | Office | Primary Care | Erika Ernst, | | | 2019 | Visit | | DO [address] [place] | | | | | | [place] [address] | | | | | | [phone] | | | | | | | [...] [place] | | | | | | [address] | | | | | | [phone] | | | | | | | | +--------+ + + + + | 02/09/ | Office | Neurology | Dhara, | | | 2020 | Visit | | DWAINE Ross [address] | | | | | | [address] [place], | | | | | | [place] [address] | | | | | | [phone] | | | | | | | | +--------+ + + + + documented as of this encounter Visit Diagnoses Not on filedocumented in this encounter"
--- OUTSIDE RECORDS SUMMARY | ~2019-09-30 | XMS | Encounter Summary ---
Demographics + + + | Address | [address] | | | [place] [address] | + + + | Home Phone [...] Team Providers + +------+ + | Care Resident Inspector Name | Role | Phone | + +------+ + PCP | Unavailable | + +------+ + Encounter Details +--------+ + + + + | Date | Type | Department | Care Team | Description | +--------+ + + + + | 08/21/ | [facility] | Nicanor Mckeon | | | 2016 | Encounter | HOSPITAL NURSERY | MD Caryn [address] | | | | | [address] [place] | [place] | | | | | [place] | [address] | | | | | [address] | [phone] | | | | | [phone] | | | +--------+ + + + [...] | | | | | [place] [address] | | | | | | [phone] | | | | | | | | +--------+ + + + + | 10/30/ | Office | Primary Care | Erika Ernst, | | | 2019 | Visit | | DO [address] [place] | | | | | | [place] [address] | | | | | | [phone] | | | | | | | [...] [place] | | | | | | [address] | | | | | | [phone] | | | | | | | | +--------+ + + + + | 02/09/ | Office | Neurology | Dhara, | | | 2019 | Visit | | DWAINE Ross [address] | | | | | | [address] [place], | | | | | | [place] [address] | | | | | | [phone] | | | | | | | | +--------+ + + + + documented as of this encounter Visit Diagnoses Not on filedocumented in this encounter"
--- OUTSIDE RECORDS SUMMARY | ~2019-09-30 | XMS | Encounter Summary ---
Demographics + + + | Address | [address] | | | [place] [address] | + + + | Home Phone [...] Providers + +------+ + | Care Nurse Manager Name | Role | Phone | [...] | | Services | Hematology | | DWIANE Oconnor | [place] | | | Required | and Oncology | Leukocytosis | [address] | MD Hebert | | | | | , | [place], | [address] | | | | | unspecified | [place] [address] | [place], | | | | | type | Phone: | [place] [address] | | | | | | [phone] | Phone: | | | | | | Fax: | [phone] | | | | | | [phone] | Fax: | | | | | | | [phone] | + + + + + + + Encounter Details +--------+ + + + + | Date | Type | Department | Care Team | Description | +--------+ + + + + | 02/20/ | Orders Only | [place] [facility] | Anastasia Alberto, | Leukocytosis, | | 2019 | | [facility] | STRUCTURAL LAYOUT WORKER [address] [place] | unspecified type | | | | MEDICAL CLINIC [address] | [place] [address] | (Primary Dx) | | | | [address] [place], | [phone] | | | | | [place] [address] | | | | | | [phone] | | | +--------+ + + + [...] 2019 | Visit | | DO [address] | | | | | | [place] [address] | | | | | | [phone] | | | | | | | | +--------+ + + + + | 10/30/ | Office | Primary Care | Erika Ernst, | | | 2019 | Visit | | DO [address] [place] | | | | | | [place] [address] | | | | | | [phone] | | | | | | | [...] [place] | | | | | | [address] | | | | | | [phone] | | | | | | | | +--------+ + + + + | 02/09/ | Office | Neurology | Dhara, | | | 2019 | Visit | | DWAINE Ross [address] | | | | | | [address] [place], | | | | | | [place] [address] | | | | | | [phone] | | | | | | | [...]
--- OUTSIDE RECORDS SUMMARY | ~2019-09-30 | XMS | Encounter Summary ---
Demographics + + + | Address | [address] | | | [place] [address] | + + + | Home Phone [...] Providers + +------+ + | Care Lumber Piler Operator Name | Role | Phone | [...] | MEDICAL CLINIC [address] | [place] [address] | | | | | [address] [place], | [phone] | | | | | [place] [address] | | | | | | [phone] | | | +--------+ + + + [...] | | | | | [place] [address] | | | | | | [phone] | | | | | | | | +--------+ + + + + | 10/30/ | Office | Primary Care | Erika Ernst, | | | 2019 | Visit | | DO [address] [place] | | | | | | [place] [address] | | | | | | [phone] | | | | | | | [...] [place] | | | | | | [address] | | | | | | [phone] | | | | | | | | +--------+ + + + + | 02/09/ | Office | Neurology | Dhara, | | | 2020 | Visit | | DWAINE Ross [address] | | | | | | [address] [place], | | | | | | [place] [address] | | | | | | [phone] | | | | | | | | +--------+ + + + + documented as of this encounter Visit Diagnoses Not on filedocumented in this encounter"
--- OUTSIDE RECORDS SUMMARY | ~2019-09-30 | XMS | Encounter Summary ---
Demographics + + + | Address | [address] | | | [place] [address] | + + + | Home Phone [...] Team Providers + +------+ + | Care Lens Matcher Name | Role | Phone | [...] | [place], [place] | [place] [address] | | | | | [address] | [phone] | | | | | [phone] | | | +--------+ + + + [...] | | | | | [place], [place] [address] | | | | | | [phone] | | | | | | | | +--------+ + + + + | 10/30/ | Office | Primary Care | Erika Ernst, | | | 2019 | Visit | | DO [address] [place] [address] | | | | | | [place] [address] | | | | | | [phone] | | | | | | | [...] [place] | | | | | | [address] | | | | | | [phone] | | | | | | | | +--------+ + + + + | 02/09/ | Office | Neurology | Dhara, | | | 2019 | Visit | | DWAINE Ross [address] | | | | | | [address] [place], | | | | | | [place] [address] | | | | | | [phone] | | | | | | | | +--------+ + + + + documented as of this encounter Visit Diagnoses Not on filedocumented in this encounter"
--- OUTSIDE RECORDS SUMMARY | ~2019-09-30 | XMS | Encounter Summary ---
Demographics + + + | Address | [address] | | | [place] [address] | + + + | Home Phone [...] Team Providers + +------+ + | Care Finisher Wallboard And Plasterboard Name | Role | Phone | + +------+ + PCP | Unavailable | + +------+ + Encounter Details +--------+ + + + + | Date | Type | Department | Care Team | Description | +--------+ + + + + | [facility] Jesus Cornejo | | | 2017 | Encounter | [facility] | MCKENZIE Keenan [address] | | | | | W[facility]IN [facility] [address] | [address] | | | | | [facility] [facility] [place], | [place], [place] | | | | | [place] [address] | [address] | | | | | [phone] | [phone] | | | | | | | [...] | | | | | [place] [address] | | | | | | [phone] | | | | | | | | +--------+ + + + + | 10/30/ | Office | Primary Care | Erika Ernst, | | | 2019 | Visit | | DO [address] [place] | | | | | | [place] [address] | | | | | | [phone] | | | | | | | [...] [place] | | | | | | [address] | | | | | | [phone] | | | | | | | | +--------+ + + + + | 02/09/ | Office | Neurology | Dhara, | | | 2019 | Visit | | DWAINE Ross [address] | | | | | [address] [place], | | | | | | [place] [address] | | | | | | [phone] | | | | | | | | +--------+ + + + + documented as of this encounter Visit Diagnoses Not on filedocumented in this encounter"
--- OUTSIDE RECORDS SUMMARY | ~2019-09-30 | XMS | Encounter Summary ---
Demographics + + + | Address | [address] | | | [place] [address] | + + + | Home Phone [...] Team Providers + +------+ + | Care Cosmetic Sales Advisor Name | Role | Phone | [...] | [place], [place] | [place] [address] | | | | | [address] | [phone] | | | | | [phone] | | | +--------+ + + + [...] | | | | | [place] [address] | | | | | | [phone] | | | | | | | | +--------+ + + + + | 10/30/ | Office | Primary Care | Erika Ernst, | | | 2019 | Visit | | DO [address] [place] | | | | | | [place] [address] | | | | | | [phone] | | | | | | | [...] [place] | | | | | | [address] | | | | | | [phone] | | | | | | | | +--------+ + + + + | 02/09/ | Office | Neurology | Dhara, | | | 2020 | Visit | | [address]WA[address] | | | | | | [address] [place], | | | | | | [place] [address] | | | | | | [phone] | | | | | | | | +--------+ + + + + documented as of this encounter Visit Diagnoses Not on filedocumented in this encounter"
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
--- OUTSIDE RECORDS SUMMARY | ~2019-09-30 | XMS | Encounter Summary ---
Demographics + + + | Address | [address] | | | [place] [address] | + + + | Home Phone [...] Providers + +------+ + | Care Truck Manager Name | Role | Phone | [...] | [place], [place] | [place] [address] | | | | | [address] | [phone] | | | | | [phone] | | | +--------+ + + + [...] | | | | | [place] [address] | | | | | | [phone] | | | | | | | | +--------+ + + + + | 10/30/ | Office | Primary Care | Erika Enrst, | | | 2019 | Visit | | DO [address] [place] | | | | | | [place] [address] | | | | | | [phone] | | | | | | | [...] [place] | | | | | | [address] | | | | | | [phone] | | | | | | | | +--------+ + + + + | 02/09/ | Office | Neurology | Dhara, | | | 2019 | Visit | | DWAINE Ross [address] | | | | | | [address] [place], | | | | | | [place] [address] | | | | | | [phone] | | | | | | | | +--------+ + + + + documented as of this encounter Visit Diagnoses Not on filedocumented in this encounter"
--- OUTSIDE RECORDS SUMMARY | ~2019-09-30 | XMS | Encounter Summary ---
Demographics + + + | Address | [address] | | | [place] [address] | + + + | Home Phone [...] Team Providers + +------+ + | Care Biodiesel Division Manager Name | Role | Phone | [...] Medication Follow-up | | 2018 | | [facility] | DO [address] [place] | | | | | MEDICAL CLINIC [address] | [facility] [address] | | | | | [address] [place], | [phone] | | | | | [place] [address] | | | | | | [phone] | | | +--------+ + + + [...] [address] | | | | | | [phone] | | | | | | | | +--------+ + + + + | 10/30/ | Office | Primary Care | Erika Ernst, | | | 2019 | Visit | | DO [address] [place] | | | | | | [place] [address] | | | | | | [phone] | | | | | | | [...] [place] | | | | | | [address] | | | | | | [phone] | | | | | | | | +--------+ + + + + | 02/09/ | Office | Neurology | Dhara, | | | 2020 | Visit | | DWAINE Ross [address] | | | | | | [address] [place], | | | | | | [place] [address] | | | | | | [phone] | | | | | | | | +--------+ + + + + documented as of this encounter Visit Diagnoses Not on filedocumented in this encounter"
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
--- OUTSIDE RECORDS SUMMARY | ~2019-09-30 | XMS | Encounter Summary ---
Demographics + + + | Address | [address] | | | [place] [address] | + + + | Home Phone [...] Team Providers + +------+ + | Care Routing Machine Operator Name | Role | Phone [...] Pressure | | 2019 | | [facility] | DO [address] [place] | | | | | MEDICAL CLINIC [address] | [place] [address] | | | | | [address] [place], | [phone] | | | | | [place] [address] | | | | | | [phone] | | | +--------+ + + + [...] | | | | | [place] [address] | | | | | | [phone] | | | | | | | | +--------+ + + + + | 10/30/ | Office | Primary Care | Erika Ernst, | | | 2019 | Visit | | DO [address] [place] [address] | | | | | | [place] [address] | | | | | | [phone] | | | | | | | [...] [place] | | | | | | [address] | | | | | | [phone] | | | | | | | | +--------+ + + + + | 02/09/ | Office | Neurology | Dhara, | | | 2019 | Visit | | DWAINE Ross [address] | | | | | | [address] [place], | | | | | | [place] [address] | | | | | | [phone] | | | | | | | | +--------+ + + + + documented as of this encounter Visit Diagnoses Not on filedocumented in this encounter"
--- OUTSIDE RECORDS SUMMARY | ~2019-09-30 | XMS | Encounter Summary ---
Demographics + + + | Address | [address] | | | [place] [address] | + + + | Home Phone [...] Team Providers + +------+ + | Care Gold Leaf Printer Name | Role | Phone | [...] Medication Question | | 2019 | | [facility] | DO [address] [place] | (Problem w/Asthma) | | | | MEDICAL CLINIC [address] | [facility] [address] | | | | | [address] [place], | [phone] | | | | | [place] [address] | | | | | | [phone] | | | +--------+ + + + [...] | | | | | [place] [address] | | | | | | [phone] | | | | | | | | +--------+ + + + + | 10/30/ | Office | Primary Care | Erika Ernst, | | | 2019 | Visit | | DO [address] [place] | | | | | | [place] [address] | | | | | | [phone] | | | | | | | [...] [place] | | | | | | [address] | | | | | | [phone] | | | | | | | | +--------+ + + + + | 02/09/ | Office | Neurology | Dhara, | | | 2020 | Visit | | DWA[address] | | | | | | [address] [place], | | | | | | [place] [address] | | | | | | [phone] | | | | | | | | +--------+ + + + + documented as of this encounter Visit Diagnoses Not on filedocumented in this encounter"
--- OUTSIDE RECORDS SUMMARY | ~2019-09-30 | XMS | Encounter Summary ---
Demographics + + + | Address | [address] | | | [place] [address] | + + + | Home Phone [...] Team Providers + +------+ + | Care Infant And Toddler Teacher Name | Role | Phone | [...] Results | | 2019 | | [facility] | LISA Abad [address] | | | | | [address] [place] | [address], | | | | | [place], [place] | [place] [address] | | | | | [address] | [phone] | | | | | [phone] | | | +--------+ + + + [...] | | | | | [place] [address] | | | | | | [phone] | | | | | | | | +--------+ + + + + | 10/30/ | Office | Primary Care | Erika Ernst, | | | 2019 | Visit | | DO [address] [place] | | | | | | [place] [address] | | | | | | [phone] | | | | | | | [...] [place] | | | | | | [address] | | | | | | [phone] | | | | | | | | +--------+ + + + + | 02/09/ | Office | Neurology | Dhara, | | | 2019 | Visit | | [address] | | | | | | [address] [place], | | | | | | [place] [address] | | | | | | [phone] | | | | | | | | +--------+ + + + + documented as of this encounter Visit Diagnoses Not on filedocumented in this encounter"
--- OUTSIDE RECORDS SUMMARY | ~2019-09-30 | XMS | Encounter Summary ---
Demographics + + + | Address | [address] | | | [place] [address] | + + + | Home Phone [...] Team Providers + +------+ + | Care Rehabilitation Program Manager Name | Role | Phone | [...] | | 2018 | | [facility] | COMPUTING MACHINE OPERATOR | | | | | [facility] [address] | | | | | | [facility] [facility] [place], | | | | | | [place] [address] | | | | | | [phone] | | | +--------+ + + + [...] | | | | | | [place] [address] | | | | | | [phone] | | | | | | | | +--------+ + + + + | 10/30/ | Office | Primary Care | Erika Ernst, | | | 2019 | Visit | | DO [address] | | | | | | [place] [address] | | | | | | [phone] | | | | | | | [...] [place] | | | | | | [address] | | | | | | [phone] | | | | | | | | +--------+ + + + + | 02/09/ | Office | Neurology | Dhara, | | | 2019 | Visit | | DWAINE Ross [address] [place], | | | | | | [place] [address] | | | | | | [phone] | | | | | | | | +--------+ + + + + documented as of this encounter Visit Diagnoses Not on filedocumented in this encounter"
--- OUTSIDE RECORDS SUMMARY | ~2019-09-30 | XMS | Encounter Summary ---
Demographics + + + | Address | [address] | | | [place] [address] | + + + | Home Phone [...] Team Providers + +------+ + | Care Leak Detector Name | Role | Phone | + [...] Bilateral | | 2019 | Visit | 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 Once a week Cholecalciferol (VITAMIN D3) 70258 units TABS Take 1 tablet by mouth [...] with right all his physical therapist about [facility] physical th er[facility]. She reported that Andrea [...] as planned. Electronically signed by: BRADLEY [email or web address] [facility], Walk[facility]in [facility] Note: Part of this report was transcribed using voice recognition software. Every effort wa s made to ensure accuracy. However, inadvertent computerized interviewing clerk errors may be pre sent. documente d [...] [id number] | | | | | | [phone] | | | | | | | | +--------+ + + + + | 10/30/ | Office | Primary Care | Erika Ernst, | | | 2019 | Visit | | DO [address] | | | | | | [place] [address] | | | | | | [phone] | | | | | | | [...] [place] | | | | | | [address] | | | | | | [phone] | | | | | | | | +--------+ + + + + | 02/09/ | Office | Neurology | Dhara, | | | 2019 | Visit | | [address] | | | | | | [address] [place], | | | | | | [place] [address] | | | | | | [phone] | | | | | | | | +--------+ + + + + documented as of this encounter Visit Diagnoses + + | Diagnosis | + + | Bilateral temporomandibular joint pain - Primary Arthralgia of temporomandibular | | joint | + + documented in this encounter
--- OUTSIDE RECORDS SUMMARY | ~2019-09-30 | XMS | Encounter Summary ---
Demographics + + + | Address | [address] | | | [place] [address] | + + + | Home Phone [...] LABS | | 2019 | | [facility] | DO [address] | | | | | [facility] [address] | [place] [address] | | | | | [address] [place], | [phone] | | | | | [place] [address] | | | | | | [phone] | | | +--------+ + + + [...] | | | | | [place] [address] | | | | | | [phone] | | | | | | | | +--------+ + + + + | 10/30/ | Office | Primary Care | Erika Ernst, | | | 2019 | Visit | | DO [address] | | | | | | [place] [address] | | | | | | [phone] | | | | | | | [...] [place] | | | | | | [address] | | | | | | [phone] | | | | | | | | +--------+ + + + + | 02/09/ | Office | Neurology | Dhara, | | | 2020 | Visit | | [address] | | | | | | [address] [place], | | | | | | [place] [address] | | | | | | [phone] | | | | | | | | +--------+ + + + + documented as of this encounter Visit Diagnoses Not on filedocumented in this encounter"
--- OUTSIDE RECORDS SUMMARY | ~2019-09-30 | XMS | Encounter Summary ---
Demographics + + + | Address | [address] | | | [place] [address] | + + + | Home Phone [...] Team Providers + +------+ + | Care Carcass Splitter Name | Role | Phone | + [...] | | | of left | [place] [address] | [place] [address] | | | | | ankle, | Phone: | Phone: | | | | | initial | [phone] | [phone] | | | | | encounter | Fax: | Fax: | | | | | Procedures | [phone] | [phone] | | | | | PT TREAT [...] [address] [place] | [place] [address] | encounter (Primary | | | | [place], [place] | [phone] | Dx) | | | | [address] | | | | | | [phone] | Nick Barrios I, PT | | [...] documented as of this encounter Progress Notes iNck Barrios I, PT - 11/23/2018 9:17 AM PSTPT Addendum to resolve episode, problem list a djustment, and end relationship with patient. Electronically signed by: Nick Barrios, PT, 11/23/2018 9:17 oseph, Nick Szymanski, PT - 10/25/2018 2:47 PM PST [facility] [address] [place] [address] Discharge Summary Date: 10/25/2018 Patient Name: Andrea [...] reports of muscle fatigue an d requiring SHEAR OPERATOR AUTOMATIC with grab bar in order to maintain [...] [facility] period in order to return to prior [...] PT - 10/25/2018 2: 45 PM PST [facility] [address] [place] [address] Physical Therapy Daily Treatment Note Date: 10/25/2018 [...] L ankle ROM today. Due to reaching [facility] with improvement, patient is appropriate for discharge [...] in favor of SL heel raise with SHEAR OPERATOR AUTOMATIC. ONGOING: S LS on even surface 3x30 [...] | | | | | [place] [address] | | | | | | [phone] | | | | | | | | +--------+ + + + + | 10/30/ | Office | Primary Care | Erika Ernst, | | | 2019 | Visit | | DO [address] | | | | | | [place] [address] | | | | | | [phone] | | | | | | | [...] [place] | | | | | | [address] | | | | | | [phone] | | | | | | | | +--------+ + + + + | 02/09/ | Office | Neurology | Dhara, | | | 2020 | Visit | | [address] | | | | | | [address] [place], | | | | | | [place] [address] | | | | | | [phone] | | | | | | | | +--------+ + + + + documented as of this encounter Visit Diagnoses + + | Diagnosis | + + | Sprain of left ankle, subsequent encounter - Primary | + + documented in this encounter
--- OUTSIDE RECORDS SUMMARY | ~2019-09-30 | XMS | Encounter Summary ---
Demographics + + + | Address | [address] | | | [place] [address] | + + + | Home Phone [...] Providers + +------+ + | Care Plant Guide Name | Role | Phone | + +------+ + | Erika Ernst DO | PCP | | + +------+ + Encounter Details +--------+ + + + + | Date | Type | Department | Care Team | Description | +--------+ + + + + | 08/20/ | Orders Only | [facility] | Jeffrey Gandhi, | | | 2017 | | [facility] [address] | MD [address] | | | | | [address] | [place] [address] | | | | | [place], [place] | [phone] | | | | | [address] | | | | | | [phone] | | | +--------+ + + + [...] | | | | | [place] [address] | | | | | | [phone] | | | | | | | | +--------+ + + + + | 10/30/ | Office | Primary Care | Erika Ernst, | | | 2019 | Visit | | DO [address] | | | | | | [place] [address] | | | | | | [phone] | | | | | | | [...] [place] | | | | | | [address] | | | | | | [phone] | | | | | | | | +--------+ + + + + | 02/09/ | Office | Neurology | Dhara, | | | 2019 | Visit | | [address] | | | | | | [address] [place], | | | | | | [place] [address] | | | | | | [phone] | | | | | | | | +--------+ + + + + documented as of this encounter Procedures + +--------+ + + + | Procedure Name | Priori | Date/Time | Associated Diagnosis | Comments | | | ty | | | | + +--------+ + + + | XR WRIST RIGHT 1 VW | Routin | 08/20/2018 | | Results for this | | LIMITED | e | 1:13 PM | | procedure are in the | | | | PST | | results section. | + +--------+ + + + documented in this encounter Results XR Wrist Right 1 View Limited (08/20/2018 1:13 PM PST) + + | Specimen | + + | | + + + + + | Impressions | Performed At | + + + | Right wrist shows normal osseous alignment. No fracture no | | | dislocation. Stable posturing of the lunate on the lateral projection. | | | No sign of complication | | + + + + + + | Narrative | Performed At | + + + | INDICATION: Right wrist pain COMPARISON: 12/05/17 | | | TECHNIQUE: Multiple views of the right wrist FINDINGS: Right wrist | | | shows normal osseous alignment. No fracture no dislocation. Stable | | | posturing of the lunate on the lateral projection. No sign of | | | complication | | + + + + + | Procedure Note | + + | Yoni Grullon Conversion - 05/23/2019 5:40 PM PDT | | INDICATION: Right wrist pain | | | | COMPARISON: 12/05/17 | | | | TECHNIQUE: Multiple views of the right wrist | | | | FINDINGS: Right wrist shows normal osseous alignment. No fracture no | | dislocation. Stable posturing of the lunate on the lateral projection. No | | sign of complication | | | | IMPRESSION: | | Right wrist shows normal osseous alignment. No fracture no | | dislocation. Stable posturing of the lunate on the lateral projection. No | | sign of complication | | | | | + + documented in this encounter Visit Diagnoses Not on filedocumented in this encounter"
--- OUTSIDE RECORDS SUMMARY | ~2019-09-30 | XMS | Encounter Summary ---
Demographics + + + | Address | [address] | | | [place] [address] | + + + | Home Phone [...] Providers + +------+ + | Care Public Health Specialist Name | Role | Phone [...] | | | [place] | [address] | | | | | [address] | | | | | | [phone] | | | +--------+ + + + [...] | | | | | [place] [address] | | | | | | [phone] | | | | | | | | +--------+ + + + + | 10/30/ | Office | Primary Care | Erika Ernst, | | | 2019 | Visit | | DO [address] | | | | | | [place] [address] | | | | | | [phone] | | | | | | | [...] [place] | | | | | | [address] | | | | | | [phone] | | | | | | | | +--------+ + + + + | 02/09/ | Office | Neurology | Dhara, | | | 2019 | Visit | | [address] | | | | | | [address] [place], | | | | | | [place] [address] | | | | | | [phone] | | | | | | | | +--------+ + + + + documented as of this encounter Visit Diagnoses Not on filedocumented in this encounter"
--- OUTSIDE RECORDS SUMMARY | ~2019-09-30 | XMS | Encounter Summary ---
Demographics + + + | Address | [address] | | | [place] [address] | + + + | Home Phone [...] Providers + +------+ + | Care Tester Wafer Substrate Name | Role | Phone | + [...] | [facility] | [place] [address] | | | | | [address] [place], | [phone] | | | | | [place] [address] | | | | | | [phone] | | | +--------+ + + + [...] | | | | | [place] [address] | | | | | | [phone] | | | | | | | | +--------+ + + + + | 10/30/ | Office | Primary Care | Erika Ernst, | | | 2019 | Visit | | DO [address] [place] [address] | | | | | | [place] [address] | | | | | | [phone] | | | | | | | [...] [place] | | | | | | [address] | | | | | | [phone] | | | | | | | | +--------+ + + + + | 02/09/ | Office | Neurology | Dhara, | | | 2019 | Visit | | [address] | | | | | [address] [place], | | | | | | [place] [address] | | | | | | [phone] | | | | | | | | +--------+ + + + + documented as of this encounter Visit Diagnoses Not on filedocumented in this encounter"
--- OUTSIDE RECORDS SUMMARY | ~2019-09-30 | XMS | Encounter Summary ---
Demographics + + + | Address | [address] | | | [place] [address] | + + + | Home Phone [...] Providers + +------+ + | Care Wrapper Stemmer Operator Name | Role | Phone | [...] | [address] | | | | | [address] | | | | | | [phone] | | | +--------+ + + + [...] Visit | | DO [address] | | | | | | [place] [address] | | | | | | [phone] | | | | | | | | +--------+ + + + + | 10/30/ | Office | Primary Care | Erika Ernst, | | | 2019 | Visit | | DO [address] | | | | | | [place] [address] | | | | | | [phone] | | | | | | | [...] [place] | | | | | | [address] | | | | | | [phone] | | | | | | | | +--------+ + + + + | 02/09/ | Office | Neurology | Dhara, | | | 2020 | Visit | | [address] | | | | | | [address] [place], | | | | | | [place] [address] | | | | | | [phone] | | | | | | | | +--------+ + + + + documented as of this encounter Visit Diagnoses Not on filedocumented in this encounter"
--- OUTSIDE RECORDS SUMMARY | ~2019-09-30 | XMS | Encounter Summary ---
Demographics + + + | Address | [address] | | | [place] [address] | + + + | Home Phone [...] Team Providers + +------+ + | Care Movie Theater Usher Name | Role | Phone | + [...] | | | [facility] [address] | [facility] [place] [address] | | | | | [address] [facility], | [phone] | | | | | [place] [address] | | | | | | [phone] | | | +--------+ + + + [...] [address] | | | | | | [phone] | | | | | | | | +--------+ + + + + | 10/30/ | Office | Primary Care | Erika Ernst, | | | 2019 | Visit | | DO [address] | | | | | | [place] [address] | | | | | | [phone] | | | | | | | [...] [place] | | | | | | [address] | | | | | | [phone] | | | | | | | | +--------+ + + + + | 02/09/ | Office | Neurology | Dhara, | | | 2020 | Visit | | [address] | | | | | [address] [place], | | | | | | [place] [address] | | | | | | [phone] | | | | | | | | +--------+ + + + + documented as of this encounter Visit Diagnoses Not on filedocumented in this encounter"
--- OUTSIDE RECORDS SUMMARY | ~2019-09-30 | XMS | Encounter Summary ---
Demographics + + + | Address | [address] | | | [place] [address] | + + + | Home Phone [...] Team Providers + +------+ + | Care Exhibition Designer Name | Role | Phone | + +------+ + | Erika Ernst DO | PCP | | + +------+ + Encounter Details +--------+ + + + + | Date | Type | Department | Care Team | Description | +--------+ + + + + | 07/04/ | Abstract | [place] [facility] | Erika Ernst, | | | 2017 | | [address] | | | | | [facility] [address] | [place] [address] | | | | | [address]TH [facility] [place], | [phone] | | | | | [place] [address] | | | | | | [phone] | | | +--------+ + + + [...] | | | | | [place] [address] | | | | | | [phone] | | | | | | | | +--------+ + + + + | 10/30/ | Office | Primary Care | Erika Ernst, | | | 2019 | Visit | | DO [address] | | | | | | [place] [address] | | | | | | [phone] | | | | | | | [...] [place] | | | | | | [address] | | | | | | [phone] | | | | | | | | +--------+ + + + + | 02/09/ | Office | Neurology | Dhara, | | | 2019 | Visit | | [address] | | | | | | [address] [place], | | | | | | [place] [address] | | | | | | [phone] | | | | | | | [...]
--- OUTSIDE RECORDS SUMMARY | ~2019-09-30 | XMS | Encounter Summary ---
Demographics + + + | Address | [address] | | | [place] [address] | + + + | Home Phone [...] Providers + +------+ + | Care Senior Architect/Design Manager Name | Role | Phone | + +------+ + PCP | Unavailable | + +------+ + Encounter Details +--------+ + + + + | Date | Type | Department | Care Team | Description | +--------+ + + + + | 01/25/ | [facility] | Heike Rodriguez, | | | 2015 | Encounter | [facility] | ROLL SLICING MACHINE TENDER [address] | | | | | CENTER [address] | [place] | | | | | [place] | [address] | | | | | [address] | | | | | | [phone] | | | +--------+ + + + [...] | | | | | [place] [address] | | | | | | [phone] | | | | | | | | +--------+ + + + + | 10/30/ | Office | Primary Care | Erika Ernst, | | | 2019 | Visit | | DO [address] | | | | | | [place] [address] | | | | | | [phone] | | | | | | | [...] [place] | | | | | | [address] | | | | | | [phone] | | | | | | | | +--------+ + + + + | 02/09/ | Office | Neurology | Dhara, | | | 2020 | Visit | | [address] | | | | | [address] [place], | | | | | | [place] [address] | | | | | | [phone] | | | | | | | | +--------+ + + + + documented as of this encounter Visit Diagnoses Not on filedocumented in this encounter"
--- OUTSIDE RECORDS SUMMARY | ~2019-09-30 | XMS | Encounter Summary ---
Demographics + + + | Address | [address] | | | [place] [address] | + + + | Home Phone [...] Team Providers + +------+ + | Care Group Marketing Vp Name | Role | Phone | + [...] Description | +--------+---------+ + + + | 09/13/ | Office | [place] [facility] | Erika Ernst, | Iron deficiency | | 2019 | Visit | [facility] | DO [address] | (Primary Dx); | | | | [facility] [address] | [facility] [address] | Essential | | | | [address] [place], | [phone] | hypertension; | | | | [place] [address] | | Moderate persistent | | | | [phone] | | asthma with acute | | | | | | exacerbation | +--------+---------+ + + + Social History [...] + + + | Blood Pressure | 130/88 | 09/13/2019 3:48 PM | | | | | PST | | + + + + + | Pulse | 98 | 09/13/2019 3:48 PM | | | | | PST | | + + + + + | Temperature | - | - | | + + + + + | Respiratory Rate | 20 | 09/13/2019 3:48 PM | | | | | PST | | + + + + + | Oxygen Saturation | 96% | 09/13/2019 3:48 PM | | | | | PST | | + + + + + | Inhaled Oxygen | - | - | | | Concentration | | | | + + + + + | Weight | 169.2 kg (373 lb) | 09/13/2019 3:48 PM | | | | | PST | | + + + + + | Height | 177.8 cm (5' 10") | 09/13/2019 3:48 PM | | | | | PST | | + + + + + | Body Mass Index | 53.52 | 09/13/2019 3:48 PM | | | | | PST | | + + + + + documented in this encounter Progress Erika Cespedes DO - 09/13/2019 4:00 PM PSTFormatting of this note might be different fro m the original. Subjective: Patient ID: Andrea Suh is a 29 y.o. female. Here to FU on her HTN and iron deficiency. She is taking 10 mg ramipril now and the BP toda y is controlled. No chest pain or SOB. Is getting over a asthma flair and still doing increa sed inhaler use TID per her composing machine operator and is on oral prednisone and tolerating it well w ith no increase in anxiety but HR up sl. Pox 96 %. She is due for recheck on her iron levels and has been taking the oral iron. Non-smoker. Review of Systems As above Objective: BP 130/88 | Pulse 98 | Resp 20 | Ht 1.778 m (5' 10") | Wt (!) 169.2 kg (373 lb) | SpO2 96% | BMI 53.52 kg/m Physical Exam Constitutional: General: She is [...] focal deficit present. Mental Status: She is alert. Psychiatric: Mood and Affect: Mood normal. Behavior: Behavior normal. Thought Content: Thought content normal. Judgment: Judgment normal. Assessment: 1. Iron deficiency Ferritin Iron and Iron Binding Capacity CBC with Differential 2. Essential hypertension 3. Moderate persistent asthma with acute exacerbation Plan: Continue the increased ramipril dose at 10 mg daily. Continue current increase in inhaler u se per pulmonology and the oral prednisone. Labs, ferritin, iron levels and CBC to recheck o n anemia iron deficiency. documented in this en counter Plan of Treatment +--------+ + + + + | Date | Type | Specialty | Care Team | Description | +--------+ + + + + | 10/01/ | Office | Primary Care | Erika Ernst, | | | 2018 | Visit | | DO [address] | | | | | | [place] [address] | | | | | | [phone] | | | | | | | | +--------+ + + + + | 10/30/ | Office | Primary Care | Erika Ernst, | | | 2019 | Visit | | DO [address] | | | | | | [place] [address] | | | | | | [phone] | | | | | | | [...] [place] | | | | | | [address] | | | | | | [phone] | | | | | | | | +--------+ + + + + | 02/09/ | Office | Neurology | Dhara, | | | 2020 | Visit | | [address] | | | | | | [address] [place], | | | | | | [place] [address] | | | | | | [phone] | | | | | | | | +--------+ + + + + documented as of this encounter Results Iron and Iron Binding Capacity (09/17/2019 5:03 PM PST) + +--------+ + + + | Component | Value | Ref Range | Performed | Pathologist | | | | | At | Signature | + +--------+ + + + | Iron | 21 (L) | 50 - 170 ug/dL | [place] [facility] | | [facility] | | + +--------+ + + + | TIBC | 308 | 250 - 450 ug/dL | [place] [facility] | | | | [facility] | | + +--------+ + + + | Iron | 7 (L) | 15 - 50 % | [...] + + | [place] [facility] | [address] | [place] [address] | [phone] | | [facility] | | | | + + + + + Ferritin (09/17/2019 5:03 PM PST) + +-------+ + + + | Component | Value | Ref Range | Performed | Pathologist | | | | | At | Signature | + +-------+ + + + | Ferritin | 29.4 | 6.2 - 137.0 | [place] | [...] + + | [place] [facility] | [address] | [place] [address] | [phone] | | [facility]ITAL [facility] | | | | + + + + + documented in this encounter Visit Diagnoses + + | Diagnosis | + + | Iron deficiency - Primary Other disorders of iron metabolism | + + | Essential hypertension Unspecified essential hypertension | + + | Moderate persistent asthma with acute exacerbation | + + documented in this encounter
--- OUTSIDE RECORDS SUMMARY | ~2019-09-30 | XMS | Encounter Summary ---
Demographics + + + | Address | [address] | | | [place] [address] | + + + | Home Phone [...] Team Providers + +------+ + | Care Chemist Proteins Name | Role | Phone | + [...] | [facility] [address] | [place] [address] | | | | | [address] [place], | [phone] | | | | | [place] [address] | | | | | | [phone] | | | +--------+ + + + [...] | | | | | [place] [address] | | | | | | [phone] | | | | | | | | +--------+ + + + + | 10/30/ | Office | Primary Care | Erika Ernst, | | | 2019 | Visit | | DO [address] | | | | | | [place] [address] | | | | | | [phone] | | | | | | | [...] [place] | | | | | | [address] | | | | | | [phone] | | | | | | | | +--------+ + + + + | 02/09/ | Office | Neurology | Dhara, | | | 2019 | Visit | | [address] | | | | | [address] [place], | | | | | | [place] [address] | | | | | | [phone] | | | | | | | | +--------+ + + + + documented as of this encounter Visit Diagnoses Not on filedocumented in this encounter"
--- OUTSIDE RECORDS SUMMARY | ~2019-09-30 | XMS | Encounter Summary ---
Demographics + + + | Address | [address] | | | [place] [address] | + + + | Home Phone [...] Team Providers + +------+ + | Care Coin Machine Assembler Name | Role | Phone | [...] | | | [facility] [address] | [place] [address] | | | | | [address] [facility], | [phone] | | | | | [place] [address] | | | | | | [phone] | | | +--------+ + + + [...] | | | | | [place] [address] | | | | | | [phone] | | | | | | | | +--------+ + + + + | 10/30/ | Office | Primary Care | Erika Ernst, | | | 2019 | Visit | | DO [address] [place] [address] | | | | | | [place] [address] | | | | | | [phone] | | | | | | | [...] [place] | | | | | | [address] | | | | | | [phone] | | | | | | | | +--------+ + + + + | 02/09/ | Office | Neurology | Dhara, | | | 2019 | Visit | | [address] | | | | | | [address] [place], | | | | | | [place] [address] | | | | | | [phone] | | | | | | | | +--------+ + + + + documented as of this encounter Visit Diagnoses Not on filedocumented in this encounter"
--- OUTSIDE RECORDS SUMMARY | ~2019-09-30 | XMS | Encounter Summary ---
Demographics + + + | Address | [address] | | | [place] [address] | + + + | Home Phone [...] Providers + +------+ + | Care Teacher Public Health Name | Role | Phone | + +------+ + | Erika Ernst DO | PCP | | + +------+ + Encounter Details +--------+ + + + + | Date | Type | Department | Care Team | Description | +--------+ + + + + | 09/02/ | [facility] | [place] | Anthony Alvarado MD | Left thyroid nodule | | 2019 | Encounter | Hospital Ultrasound | [address] | | | | | [address] [place] | [place], [place] | | | | | [place], [place] | [address] | | | | | [address] | [phone] | | | | | [phone] | | | | | | | Radiologist, Cc Wgr | | +--------+ + + + + [...] tablet by | 60 | 0 | // | | | (ANTIVERT) 12.5 mg | [...] | | | | | [place] [address] | | | | | | [phone] | | | | | | | | +--------+ + + + + | 10/30/ | Office | Primary Care | Erika Ernst, | | | 2019 | Visit | | DO [address] | | | | | | [place] [address] | | | | | | [phone] | | | | | | | [...] [place] | | | | | | [address] | | | | | | [phone] | | | | | | | | +--------+ + + + + | 02/09/ | Office | Neurology | Dhara, | | | 2019 | Visit | | [address] | | | | | [address] [place], | | | | | | [place] [address] | | | | | | [phone] | | | | | | | | +--------+ + + + + documented as of this encounter Procedures + +--------+ + + + | Procedure Name | Priori | Date/Time | Associated Diagnosis | Comments | | | ty | | | | + +--------+ + + + | US GUIDED THYROID | Routin | 09/02/2019 | Left thyroid | Results for this | | FNA | e | 8:55 AM | nodule | procedure are in the | | | | PST | | results section. | + +--------+ + + + | MEDICAL CYTOLOGY | Routin | 09/02/2019 | | Results for this | | | e | 12:00 AM | | procedure are in the | | | | PST | | results section. | + +--------+ + + + documented in this encounter Results US Guided Thyroid FNA [...] | Uneventful ultrasound-guided left thyroid biopsy.Dictated by: Chris | | Graeme | |buffered 2% lidocaine [...] | | | + +---------+ + + Medical Cytology (09/02/2019 12:00 AM PST) + + | Specimen | + + | | + + + + + | Narrative | Performed At | + + + | ORDERING PHYSICIAN: Chris Bedolla M.D. PATIENT NAME: | [facility] | | ANDREA SUH GENDER: F : 1990 | [facility] | | SPECIMEN(S): A NBX, LEFT THYROID GROSS DESCRIPTION: 20 ML OF | | | CLEAR, PINK FLUID IN CYTOLYT W/ 4 RA AND 4 AIR SLIDES CLINICAL | | | HISTORY: NO CLINICAL DATA PROVIDED LABORATORY PREPARATIONS: 1 | | | MONOLAYER, 1 CELL BLOCK, 8 PREPARED SLIDES CYTOLOGIC | | | INTERPRETATION: Left Nodule Thyroid needle sampling: Benign - Cyst | | | contents and follicular cells seen (Iron category 2) (see | | | Description) DESCRIPTION: Numerous macrophages with more than six | | | well preserved groups of thyroid follicular cells are identified. | | | Following aspiration of a cyst, if a palpable mass remains, or if the | | | cyst recurs, further sampling of the remnant/recurrent nodule is | | | recommended. RAPID ASSESSMENT FINDINGS: Fine needle sampling of a | | | target lesion was performed with collection of material for rapid | | | assessment and cytopathology evaluation. A Rapid Assessment | | | Evaluation was performed by the pathologist at the time of | | | collection. Pass #1 - Additional material requested. Pass #2 - | | | Appears adequate. Pass #3 - Rapid assessment not performed. Pass #4 | | | - Rapid assessment not performed. A total of 1 evaluation episode | | | occurred. SPECIMEN ADEQUACY: Satisfactory for Evaluation | | | PERFORMING LABORATORY: Professional interpretation was performed by | | | [facility], [address] | | | [place], [place] [address] (Hat Conditioner: Desi Perez MD; CLIA# | | | [id number]). Technical preparation was performed by [facility] | | | [facility], [address] [place] [address] | | | (Hat Conditioner: Carlos Eduardo Mayorga D.O.; CLIA#: [id number]). | | | Diagnostician: Chasity HACKETT ([facility]) Systems Spec | | | Diagnostician: Erick Orr MD Pathologist Electronically | | | Signed 09/06/2019 | | + + + + +---------+ + + | Performing | Address | City/State/Zipcode | Phone Number | | Organization | | | | + +---------+ + + | [facility] | | | | | [facility] | | | | + +---------+ + + documented in this encounter Visit Diagnoses + + | Diagnosis | + + | Left thyroid nodule Nontoxic uninodular goiter | + + documented in this encounter"
--- OUTSIDE RECORDS SUMMARY | ~2019-09-30 | XMS | Encounter Summary ---
Demographics + + + | Address | [address] | | | [place] [address] | + + + | Home Phone [...] Providers + +------+ + | Care Group Insurance Special Agent Name | Role | Phone | [...] Results | | 2019 | | [facility] | DO [address] | | | | | MEDICAL CLINIC [address] | [place] [address] | | | | | [address] [place], | [phone] | | | | | [place] [address] | | | | | | [phone] | | | +--------+ + + + [...] | | | | | [place] [address] | | | | | | [phone] | | | | | | | | +--------+ + + + + | 10/30/ | Office | Primary Care | Erika Ernst, | | | 2019 | Visit | | DO [address] | | | | | | [place] [address] | | | | | | [phone] | | | | | | | [...] [place] | | | | | | [address] | | | | | | [phone] | | | | | | | | +--------+ + + + + | 02/09/ | Office | Neurology | Dhara, | | | 2020 | Visit | | [address] | | | | | | [address] [place], | | | | | | [place] [address] | | | | | | [phone] | | | | | | | | +--------+ + + + + documented as of this encounter Visit Diagnoses Not on filedocumented in this encounter"
--- OUTSIDE RECORDS SUMMARY | ~2019-09-30 | XMS | Encounter Summary ---
Demographics + + + | Address | [address] | | | [place] [address] | + + + | Home Phone [...] Providers + +------+ + | Care Crystalizer Name | Role | Phone | + [...] | MONITOR - 48 | [place] | [address] | | | | | HOUR | [address] | Phone: | | | | | | Phone: | [phone] | | | | | | [phone] | Fax: | | | | | | Fax: | [phone] | | | | | | [phone] | | +--------+--------+ + + + + [...] | THERAPY [address] | [place] [address] | | | | | DR [place] | [phone] | | | | | [address] | | | | | | [phone] | | | +--------+ + + + [...] | 11/26/19 | | | (VITAMIN D3) 84217 | mouth Once a week | tablet [...] of this encounter Progress Notes Mauro Rae, GROUP CHIEF OPERATOR - 12/21/2018 10:23 AM PDTZio Patch placed on Andrea Suh for 2 days. Zio Patch Serial #: [id number]. Tegoderm applied over Zio Patch (Upper and Lower Wings) to help with placement and adhesion . Andrea King Noblit asked to call the [facility] RT department if any allergic reaction occurs. Patient given verbal and written instructions. Patient to call the [facility] RT Department with any concerns [...] 2018 | Visit | | DO [address] [place] [address] | | | | | | [place] [address] | | | | | | [phone] | | | | | | | | +--------+ + + + + | 10/30/ | Office | Primary Care | Erika Ernst, | | | 2019 | Visit | | DO [address] [place] [address] | | | | | | [place] [address] | | | | | | [phone] | | | | | | | [...] [place] | | | | | | [address] | | | | | | [phone] | | | | | | | | +--------+ + + + + | 02/09/ | Office | Neurology | Dhara, | | | 2019 | Visit | | [address] | | | | | | [address] [place], | | | | | | [place] [address] | | | | | | [phone] | | | | | | | [...]
--- OUTSIDE RECORDS SUMMARY | ~2019-09-30 | XMS | Encounter Summary ---
Demographics + + + | Address | [address] | | | [place] [address] | + + + | Home Phone [...] Team Providers + +------+ + | Care Remote Sensing Engineer Name | Role | Phone | [...] [facility] [place] [address] | | | | | [address] [facility], | [phone] | | | | | [place] [address] | | | | | | [phone] | | | +--------+ + + + [...] | | | | | [place] [address] | | | | | | [phone] | | | | | | | | +--------+ + + + + | 10/30/ | Office | Primary Care | Erika Ernst, | | | 2019 | Visit | | DO [address] | | | | | | [place] [address] | | | | | | [phone] | | | | | | | [...] [place] | | | | | | [address] | | | | | | [phone] | | | | | | | | +--------+ + + + + | 02/09/ | Office | Neurology | Dhara, | | | 2019 | Visit | | [address] | | | | | [address] [place], | | | | | | [place] [address] | | | | | | [phone] | | | | | | | | +--------+ + + + + documented as of this encounter Visit Diagnoses Not on filedocumented in this encounter"
--- OUTSIDE RECORDS SUMMARY | ~2019-09-30 | XMS | Encounter Summary ---
Demographics + + + | Address | [address] | | | [place] [address] | + + + | Home Phone [...] Team Providers + +------+ + | Care Sheet Metal Mechanic Name | Role | Phone | [...] | Diagnoses | Klever, | [facility] | | | Services | Surgery | Sprain of | Erika A, DO | Orthopedic | | | Required | | right hand, | [address] | [address] | | | | | subsequent | [place], | [place] | | | | | encounter | [place] [address] | [place], [place] | | | | | Procedures | Phone: | [address] | | | | | [place] | [phone] | Phone: | | | | | | Fax: | [phone] | | | | | | [phone] | Fax: | | | | | | | [phone] | + + + + + + [...] | [place] | [place] [address] | tenosynovectomy on | | | | [address] | [phone] | 03/20/19 | | | | [phone] | | | +--------+---------+ + + + [...] E.C.U. Tendon; Surgeon: Inocencio Noriega MD; Location: [facility] SURGERY RIGHT KIDNER PROCEDURE 01/20/2016 Surgeon: Fani Mahajan MD; Location: [facility] TENDON RELEASE TONSILLECTOMY WISDOM TOOTH EXTRACTION Family History Problem Relation Age of Onset Other (see comment) Mother gallbladder disease Diabetes Mother Heart disease Mother Hypertension Father Other (see comment) Father arrhymthmia Breast cancer Sister Breast cancer Maternal Grandmother Heart attack Maternal Aunt [place] Hypertension Maternal Uncle Social History Tobacco Use [...] the [place]. ASSESSMENT AND PLAN Andrea Suh is a [...] made to ensure accuracy. However, inadvertent computerized disability case manager errors may be pre sent. This documentation [...] | | | | | [place] [address] | | | | | | [phone] | | | | | | | | +--------+ + + + + | 10/30/ | Office | Primary Care | Erika Ernst, | | | 2019 | Visit | | DO [address] [place] | | | | | | [place] [address] | | | | | | [phone] | | | | | | | [...] [place] | | | | | | [address] | | | | | | [phone] | | | | | | | | +--------+ + + + + | 02/09/ | Office | Neurology | Dhara, | | | 2019 | Visit | | [address] | | | | [address] [place], | | | | | | [place] [address] | | | | | | [phone] | | | | | | | [...]
--- OUTSIDE RECORDS SUMMARY | ~2019-09-30 | XMS | Encounter Summary ---
Demographics + + + | Address | [address] | | | [place] [address] | + + + | Home Phone [...] Providers + +------+ + | Care Machine Set Up Operator Name | Role | Phone | + +------+ + PCP | Unavailable | + +------+ + Encounter Details +--------+ + + + + | Date | Type | Department | Care Team | Description | +--------+ + + + + | 11/30/ | [facility] | Heike Rodriguez, | | | 2015 | Encounter | [facility] | TANK TERMINAL GAUGER [address] | | | | | CENTER [address] | [place] | | | | | [place] | [address] | | | | | [address] | | | | | | [phone] | | | +--------+ + + + [...] | | | | | [place] [address] | | | | | | [phone] | | | | | | | | +--------+ + + + + | 10/30/ | Office | Primary Care | Erika Ernst, | | | 2019 | Visit | | DO [address] | | | | | | [place] [address] | | | | | | [phone] | | | | | | | [...] [place] | | | | | | [address] | | | | | | [phone] | | | | | | | | +--------+ + + + + | 02/09/ | Office | Neurology | Dhara, | | | 2020 | Visit | | [address] | | | | [address] [place], | | | | | | [place] [address] | | | | | | [phone] | | | | | | | | +--------+ + + + + documented as of this encounter Visit Diagnoses Not on filedocumented in this encounter"
--- OUTSIDE RECORDS SUMMARY | ~2019-09-30 | XMS | Encounter Summary ---
Demographics + + + | Address | [address] | | | [place] [address] | + + + | Home Phone [...] Providers + +------+ + | Care Control And Recovery Special Tactics Name | Role | Phone | + +------+ + PCP | Unavailable | + +------+ + Encounter Details +--------+ + + + + | Date | Type | Department | Care Team | Description | +--------+ + + + + | 02/10/ | [facility] | Denise Mcgregor | | | 2016 | Encounter | [facility] | G, GAS JOCKEY [address] | | | | | MEDICAL CLINIC [address] | [facility] [place] | | | | | [address] [facility], | [address] | | | | | [place] [address] | [phone] | | | | | [phone] | | | +--------+ + + + [...] [address] | | | | | | [phone] | | | | | | | | +--------+ + + + + | 10/30/ | Office | Primary Care | Erika Ernst, | | | 2019 | Visit | | DO [address] | | | | | | [place] [address] | | | | | | [phone] | | | | | | | [...] [place] | | | | | | [address] | | | | | | [phone] | | | | | | | | +--------+ + + + + | 02/09/ | Office | Neurology | Dhara, | | | 2019 | Visit | | [address] | | | | [address] [place], | | | | | | [place] [address] | | | | | | [phone] | | | | | | | | +--------+ + + + + documented as of this encounter Visit Diagnoses Not on filedocumented in this encounter"
--- OUTSIDE RECORDS SUMMARY | ~2019-09-30 | XMS | Encounter Summary ---
Demographics + + + | Address | [address] | | | [place] [address] | + + + | Home Phone [...] Team Providers + +------+ + | Care Carbon Brusher Assembler Name | Role | Phone | [...] | 2018 | | HOSPITAL [facility] | BENCH MANAGER [address] | environmental | | | | CENTER [address] | [place] [address] | allergies (Primary | | | | [place], [place] | [phone] | Dx); Moderate | | | | [address] | | asthma, unspecified | | | | [phone] | | whether complicated, | | | [...] sent through Care Everywhere.Asthma, Control ling Your ([place]Allergic Rhinitis ([place])Anxiety Disorders, Understanding ([place])docu mented in this encounter Medications at Time [...] | 04/12/20 | | | (VITAMIN D3) 96342 | mouth Once a week | tablet [...] | | | | | [place] [address] | | | | | | [phone] | | | | | | | | +--------+ + + + + | 10/30/ | Office | Primary Care | Erika Ernst, | | | 2019 | Visit | | DO [address] [place] | | | | | | [place] [address] | | | | | | [phone] | | | | | | | [...] [place] | | | | | | [address] | | | | | | [phone] | | | | | | | | +--------+ + + + + | 02/09/ | Office | Neurology | Dhara, | | | 2020 | Visit | | [address] | | | | [address] [place], | | | | | | [place] [address] | | | | | | [phone] | | | | | | | [...] C?MRN: | | | | | | [id number] | | | [id number] | | | riteri | | | [...] | | | St. | | | [place] | | | y | | | [...] | | | St. | | | [place] | | | y H. | | [...] | | | ent/e5 | | | [id number] | | | -b14d- | | | 444a-8 | | | 61c-15 | | | [id number] | | | 7078 | | | [...]
--- OUTSIDE RECORDS SUMMARY | ~2019-09-30 | XMS | Encounter Summary ---
Demographics + + + | Address | [address] | | | [place] [address] | + + + | Home Phone [...] Team Providers + +------+ + | Care Copier Technician Name | Role | Phone | + +------+ + | Erika Ernst DO | PCP | | + +------+ + Encounter Details +--------+ + + + + | Date | Type | Department | Care Team | Description | +--------+ + + + + | [facility]02[facility] [place] | Anthony Alvarado MD | Left thyroid nodule | | 2019 | Encounter | Hospital Ultrasound | [address] | | | | | [address] [place] | [place], [place] | | | | | [place], [place] | [address] | | | | | [address] | [phone] | | | | | [phone] | | | | | | | [...] | | | | | [place] [address] | | | | | | [phone] | | | | | | | | +--------+ + + + + | 10/30/ | Office | Primary Care | Erika Ernst, | | | 2019 | Visit | | DO [address] [place] | | | | | | [place] [address] | | | | | | [phone] | | | | | | | [...] [place] | | | | | | [address] | | | | | | [phone] | | | | | | | | +--------+ + + + + | 02/09/ | Office | Neurology | Dhara, | | | 2019 | Visit | | [address] | | | | | [address] [place], | | | | | | [place] [address] | | | | | | [phone] | | | | | | | [...] PHYSICIAN: Chris Bedolla M.D. PATIENT NAME: | [facility] | | ANDREA SUH GENDER: F [...] | | contents and follicular cells seen (Lenore category 2) (see | | | Description) [...] interpretation was performed by | | | [facility], [address] | | | [place], [place] [address] (Larriman Helper: Desi Perez MD; CLIA# | | | [id number]). Technical preparation was performed by [facility] | | | [facility], [address] [place] [address] | | | (Larriman Helper: Carlos Eduardo Mayorga D.O.; CLIA#: [id number]). | | | Diagnostician: Chasity HACKETT ([facility]) [employer] | | | Diagnostician: Erick Orr MD [...]
--- OUTSIDE RECORDS SUMMARY | ~2019-09-30 | XMS | Encounter Summary ---
Demographics + + + | Address | [address] | | | [place] [address] | + + + | Home Phone [...] Team Providers + +------+ + | Care Cpc Name | Role | Phone | + [...] [facility] | DO [address] | | | | | MEDICAL CLINIC [address] | [place] [address] | | | | | [address] [place], | [phone] | | | | | [place] [address] | | | | | | [phone] | | | +--------+ + + + [...] | | | | | [place] [address] | | | | | | [phone] | | | | | | | | +--------+ + + + + | 10/30/ | Office | Primary Care | Erika Ernst, | | | 2019 | Visit | | DO [address] | | | | | | [place] [address] | | | | | | [phone] | | | | | | | [...] [place] | | | | | | [address] | | | | | | [phone] | | | | | | | | +--------+ + + + + | 02/09/ | Office | Neurology | Dhara, | | | 2020 | Visit | | [address]WA[address] | | | | | | [address] [place], | | | | | | [place] [address] | | | | | | [phone] | | | | | | | | +--------+ + + + + documented as of this encounter Visit Diagnoses Not on filedocumented in this encounter"
--- OUTSIDE RECORDS SUMMARY | ~2019-09-30 | XMS | Encounter Summary ---
Demographics + + + | Address | [address] | | | [place] [address] | + + + | Home Phone [...] + +------+ + | Care Apartment Leasing Agent Name | Role | Phone | + +------+ + PCP | Unavailable | + +------+ + Encounter Details +--------+ + + + + | Date | Type | Department | Care Team | Description | +--------+ + + + + | 11/11/ | [facility] | Erika Ernst, | | | 2017 | Encounter | [facility] | DO [address] | | | | | MEDICAL CLINIC [address] | [place] [address] | | | | | [address] [place], | [phone] | | | | | [place] [address] | | | | | | [phone] | | | +--------+ + + + [...] | | | | | [place] [address] | | | | | | [phone] | | | | | | | | +--------+ + + + + | 10/30/ | Office | Primary Care | Erika Ernst, | | | 2019 | Visit | | DO [address] [place] | | | | | | [place] [address] | | | | | | [phone] | | | | | | | [...] [place] | | | | | | [address] | | | | | | [phone] | | | | | | | | +--------+ + + + + | 02/09/ | Office | Neurology | Dhara, | | | 2019 | Visit | | [address] | | | | | [address] [place], | | | | | | [place] [address] | | | | | | [phone] | | | | | | | | +--------+ + + + + documented as of this encounter Visit Diagnoses Not on filedocumented in this encounter"
--- OUTSIDE RECORDS SUMMARY | ~2019-09-30 | XMS | Encounter Summary ---
Demographics + + + | Address | [address] | | | [place] [address] | + + + | Home Phone [...] Providers + +------+ + | Care Personal Care Aide Name | Role | Phone | [...] [facility] | DO [address] [place] | | | | | MEDICAL CLINIC [address] | [facility] [place] [address] | | | | | [address] [place], | [phone] | | | | | [place] [address] | | | | | | [phone] | | | +--------+ + + + [...] | | | | | [place] [address] | | | | | | [phone] | | | | | | | | +--------+ + + + + | 10/30/ | Office | Primary Care | Erika Ernst, | | | 2019 | Visit | | DO [address] [place] [address] | | | | | | [place] [address] | | | | | | [phone] | | | | | | | [...] [place] | | | | | | [address] | | | | | | [phone] | | | | | | | | +--------+ + + + + | 02/09/ | Office | Neurology | Dhara, | | | 2019 | Visit | | [address] | | | | | [address] [place], | | | | | | [place] [address] | | | | | | [phone] | | | | | | | | +--------+ + + + + documented as of this encounter Visit Diagnoses Not on filedocumented in this encounter"
--- OUTSIDE RECORDS SUMMARY | ~2019-09-30 | XMS | Encounter Summary ---
Demographics + + + | Address | [address] | | | [place] [address] | + + + | Home Phone [...] Providers + +------+ + | Care Breakfast Attendant Name | Role | Phone | [...] + | 01/30/ | Telephone | [place] [facility] | Inocencio Noriega | Other (Please advise | | 2019 | | [facility] | MD [address] | ) | | | | [address] [place] | [address] [place] | | | | | [place], [place] | [place] [address] | | | | | [address] | [phone] | | | | | [phone] | | | +--------+ + + + [...] | | | | | [place] [address] | | | | | | [phone] | | | | | | | | +--------+ + + + + | 10/30/ | Office | Primary Care | Erika Ernst, | | | 2019 | Visit | | DO [address] [place] | | | | | | [place] [address] | | | | | | [phone] | | | | | | | [...] [place] | | | | | | [address] | | | | | | [phone] | | | | | | | | +--------+ + + + + | 02/09/ | Office | Neurology | Dhara, | | | 2019 | Visit | | [address] | | | | [address] [place], | | | | | | [place] [address] | | | | | | [phone] | | | | | | | | +--------+ + + + + documented as of this encounter Visit Diagnoses Not on filedocumented in this encounter"
--- OUTSIDE RECORDS SUMMARY | ~2019-09-30 | XMS | Encounter Summary ---
Demographics + + + | Address | [address] | | | [place] [address] | + + + | Home Phone [...] Providers + +------+ + | Care Tower Loader Operator Name | Role | Phone | + +------+ + PCP | Unavailable | + +------+ + Encounter Details +--------+ + + + + | Date | Type | Department | Care Team | Description | +--------+ + + + + | 01/18/ | [facility] | Spenser Roberts NP | | | 2015 | Encounter | [facility] | [address], | | | | | MEDICAL CLINIC [address] | [place] [address] | | | | | [address]TH [facility], | [phone] | | | | | [place] [address] | | | | | | [phone] | | | +--------+ + + + [...] | | | | | [place] [address] | | | | | | [phone] | | | | | | | | +--------+ + + + + | 10/30/ | Office | Primary Care | Erika Ernst, | | | 2019 | Visit | | DO [address] [place] | | | | | | [place] [address] | | | | | | [phone] | | | | | | | [...] [place] | | | | | | [address] | | | | | | [phone] | | | | | | | | +--------+ + + + + | 02/09/ | Office | Neurology | Dhara, | | | 2020 | Visit | | DWAINE Ross [address] [place], | | | | | | [place] [address] | | | | | | [phone] | | | | | | | | +--------+ + + + + documented as of this encounter Visit Diagnoses Not on filedocumented in this encounter"
--- OUTSIDE RECORDS SUMMARY | ~2019-09-30 | XMS | Encounter Summary ---
Demographics + + + | Address | [address] | | | [place] [address] | + + + | Home Phone [...] + +------+ + | Care Sheet Metal Worker Name | Role | Phone | [...] | Specialty | Neurology | Diagnoses | Daxa, | Nichole, | | | Services | | | Emily Yousif, DPM | Luis Rubin MD | | | Required | | Radiculopath | [address] | [address] | | | | | y with lower | DR [address] | [place] | | | | | extremity | [place], | [place], [place] | | | | | symptoms | [place] [address] | [address] Phone: | | | | | | Phone: | [phone] | | | | | | [phone] | Fax: | | | | | | Fax: | [phone] | | | | | | [phone] | | +--------+ + + + + + Reason for Visit + + + | Reason | Comments | + + + | Follow-up | WC L ankle | + + + Encounter Details +--------+---------+ + + + | Date | Type | Department | Care Team | Description | +--------+---------+ + + + | 01/30/ | Office | [facility] | Emily Mittal DPM | Radiculopathy with | | 2019 | Visit | [facility] | [address] [place] | lower extremity | | | | [address] | [place], [place] | symptoms (Primary | | | | [place], [place] | [address] | Dx) | | | | [address] | | | | | | [phone] | | | +--------+---------+ + + + [...] + | Blood Pressure | 130/78 | 01/30/2019 2:58 PM | | | | | PDT | | + + + + + | Pulse | 100 | 01/30/2019 2:58 PM | | | | | PDT | | + + + + + | Temperature | - | - | | + + + + + | Respiratory Rate | - | - | | + + + + + | Oxygen Saturation | 98% | 01/30/2019 2:58 PM | | | | | PDT | | + + + + + | Inhaled Oxygen | - | - | | | Concentration | | | | + + + + + | Weight | 172.8 kg (381 lb) | 01/30/2019 2:58 PM | | | | | PDT | | + + + + + | Height | 177.8 cm (5' 10") | 01/30/2019 2:58 PM | | | | | PDT | | + + + + + | Body Mass Index | 54.67 | 01/30/2019 2:58 PM | | | | | PDT | | + + + + + documented in this encounter Progress Notes Emily Mittal DPM - 01/30/2019 3:00 PM PDT [facility] Note Patient Name: Andrea Suh | Age: 28 y.o. | : 1990 | Medical Record Number:[id number] | Author: Emily Mittal DPM | Date of Encounter: 12/06/2018 Chief complaint Chief Complaint Patient presents with Follow-up WC L ankle History of Present Illness Andrea Suh is a 28 y.o. female that presents to my office with concern of new onset radiating sharp pain that shoots down her left lower extremity from her hip to the bottom o f her heel. She states that this pain is different than what she experienced after her init ial injury. She relates it has increased intensity at increased radiation. She states that it is an 8 out of 10 today and has become so bad that she is unable to bear weight on her l eft lower extremity. She denies changes such as injury, trauma or falls since our last visi t. The only thing that she can think of is side at her job she has to use more stairs and n ormal. She does state that prior to this new onset pain that the brace that we have given h er did help with her ankle pain. She has used ibuprofen, Voltaren gel as well as tramadol t he past for the previous ankle pain which she states helped. She relates that it minimally helps this new intense pain she is here today for. She denies that she's noticed any skin c hanges to her left side. She is able to stand up from a seated position without pain but st ates walking on it is unbearable. Patient recently saw Dr. Nichole and a head MRI was ordered. Patient has completed physical therapy for both her hip and her ankle and also [facility] s[facility] therapy that her knee recently started hurting. Patient is set to obtain her orthotics from [facility] in 2 weeks. Medications Current Outpatient Medications on File Prior [...] mouth. Once a week Cholecalciferol (VITAMIN D3) 79313 units TABS Take 1 tablet by mouth Once a week for 16 doses. 16 tablet 0 diclofenac (VOLTAREN) 1% GEL Apply 4 g topically 3 times daily. (Patient not taking: Re ported on 01/30/2019) 100 g 1 diphenhydrAMINE (BENADRYL) 25 MG capsule Take 25 mg by mouth nightly as needed for Itch ing. fexofenadine-pseudoePHEDrine (JOSÉ ANTONIO-D 24) 180-240 MG per tablet Take 1 tablet by jamar h. fluticasone (FLONASE ALLERGY RELIEF) 50 mcg/nasal [...] allergen; and Adhesive & tape Vitals BP 130/78 | Pulse 100 | Resp Temp | Wt (!) 172.8 kg (381 lb) | BMI Body mass index is 54.67 kg/m. ROS Patient denies any visit problem associated vascular system symptoms during this history to day. Patient denies any nausea vomiting fevers chills chest pain shortness of breath diffic ulty breathing constipation diarrhea blood in the stool blood or in the urine. All other sy stems reviewed except as mentioned above and in the HPI were negative. Imaging/Labs/Special Study Results Visit problem associated images and findings reviewed by me today with the patient include: No results found. Physical Exam On physical exam today the patient is somewhat anxious but alert and oriented. She is seat ed comfortably in the exam chair. When assessing muscle strength as well as palpation of te ndons joints and ligaments there seems to be pain out of proportion for touching these thing s. The Achilles tendon is intact with negative palpable dell. Positive paresthesias. Posi tive Tinel's. Assessment ICD-10-CM ICD-9-CM 1. Radiculopathy with lower extremity symptoms M54.10 724.4 MOTOR/SENSORY NERVE CONDUCTION STUDIES REF AUTH REQUEST ([id number]) Treatment and Plan of Care In light of new onset symptoms I'm going to recommend an EMG/MCV for this patient In the meantime in order to make the patient more comfortable we've given crutches to her t o be nonweightbearing to her left side. Crutch training was performed by my certified medic al environmental emergencies assistant. Recommend ibuprofen when necessary pain and tramadol only if necessary. A letter was written for the patient's employer that she may use crutches at work if needed and discontinue using the stairs We'll contact the patient once her EMG/NCV is complete. She does have an appointment with us to have her orthotics evaluated when she has been. Active Problems, Medical and Surgical Histories Patient [...] nasal septum Acute pain of right knee History of falling Past Medical History: Diagnosis Date Allergic rhinitis [...] cancer Maternal Grandmother Heart attack Maternal Aunt [place] Social History Socioeconomic History Marital status: Single [...] and their vital signs recorded by my environmental emergencies assistant today, a s found in this chart note. Electronically signed by: Emily Mittal DPM 12/06/2018 at 15:36 Note: Part of this report was transcribed using voice recognition software. Every effort wa s made to ensure accuracy. However, inadvertent computerized manager of allied health services errors may be pre sent. CC: Erika [...] | | | | | [place] [address] | | | | | | [phone] | | | | | | | | +--------+ + + + + | 10/30/ | Office | Primary Care | Erika Ernst, | | | 2019 | Visit | | DO [address] [place] | | | | | | [place] [address] | | | | | | [phone] | | | | | | | [...] [place] | | | | | | [address] | | | | | | [phone] | | | | | | | | +--------+ + + + + | 02/09/ | Office | Neurology | Dhara, | | | 2019 | Visit | | [address]WA[address] | | | [address] [place], | | | | | | [place] [address] | | | | | | [phone] | | | | | | | | +--------+ + + + + + + +--------+ + + | Name | Type | Priori | Associated Diagnoses | Order Schedule | | | | ty | | | + + +--------+ + + | MOTOR/SENSORY NERVE | Outpatient | Routin | Radiculopathy with | Ordered: 01/30/2019 | | CONDUCTION STUDIES | Referral | e | lower extremity | | | REF AUTH REQUEST | | | symptoms | | | ([id number]) | | | | | + + +--------+ + + documented as of this encounter Visit Diagnoses + + | Diagnosis | + + | Radiculopathy with lower extremity symptoms - Primary | + + documented in this encounter
--- OUTSIDE RECORDS SUMMARY | ~2019-09-30 | XMS | Encounter Summary ---
Demographics + + + | Address | [address] | | | [place] [address] | + + + | Home Phone [...] Team Providers + +------+ + | Care Roving Department End Finder Name | Role | Phone | + +------+ + | Erika Ernst DO | PCP | | + +------+ + Encounter Details +--------+ + + + + | Date | Type | Department | Care Team | Description | +--------+ + + + + | 02/21/ | Orders Only | [facility] | Clare Morgan, | Lymphocytosis | | 2019 | | [facility] | Transformer Mechanic | | | | | [address] [place] | | | | | | [place] | | | | | | [address] | | | | | | [phone] | | | +--------+ + + + [...] | | | | | [place] [address] | | | | | | [phone] | | | | | | | | +--------+ + + + + | 10/30/ | Office | Primary Care | Erika Ernst, | | | 2019 | Visit | | DO [address] [place] | | | | | | [place] [address] | | | | | | [phone] | | | | | | | [...] [place] | | | | | | [address] | | | | | | [phone] | | | | | | | | +--------+ + + + + | 02/09/ | Office | Neurology | Dhara, | | | 2019 | Visit | | [address]WA[address] | | | [address] [place], | | | | | | [place] [address] | | | | | | [phone] | | | | | | | | +--------+ + + + + documented as of this encounter Procedures + +--------+ + + + | Procedure Name | Priori | Date/Time | Associated Diagnosis | Comments | | | ty | | | | + +--------+ + + + | PATH HEMATOLOGY | Routin | 02/20/2019 | Lymphocytosis | Results for this | | REQUEST | e | 4:26 PM | | procedure are in the | | | | PDT | | results section. | + +--------+ + + + documented in this encounter Results Path Hematology Request (02/20/2019 [...] + + | [facility] | [address] | [place] [address] | [phone] | | [facility]ITAL [facility] | | | | + + + + + documented in this encounter Visit Diagnoses + + | Diagnosis | + + | Lymphocytosis Lymphocytosis (symptomatic) | + + documented in this encounter"
--- OUTSIDE RECORDS SUMMARY | ~2019-09-30 | XMS | Encounter Summary ---
Demographics + + + | Address | [address] | | | [place] [address] | + + + | Home Phone [...] Team Providers + +------+ + | Care Auditor Medical Claims Name | Role | Phone | + [...] | | | | [place], [place] | [address] | | | | | [address] | [phone] | | | | | [phone] | | | +--------+ + + + [...] | | | | | [place] [address] | | | | | | [phone] | | | | | | | | +--------+ + + + + | 10/30/ | Office | Primary Care | Erika Ernst, | | | 2019 | Visit | | DO [address] [place] | | | | | | [place] [address] | | | | | | [phone] | | | | | | | [...] [place] | | | | | | [address] | | | | | | [phone] | | | | | | | | +--------+ + + + + | 02/09/ | Office | Neurology | Dhara, | | | 2019 | Visit | | Cody, DATABASE DESIGNER [address] | | | | | | [address] [facility] [place], | | | | | | [place] [address] | | | | | | [phone] | | | | | | | [...] with pain. JOB #: | | | [id number] Read By: ANJELICA CHAMBERS MD Released By: [...] can be associated with pain. JOB #: [id number] Read By: ANJELICA CHAMBERS, | | Released [...] | | | | | |JOB #: [id number] | | | |Read By: ANJELICA CHAMBERS MD | | | |Released By: ANJELICA CHAMBERS MD | |Date: 12/26/2014 07:53 | | | | | + + documented in this encounter Visit Diagnoses Not on filedocumented in this encounter"
--- OUTSIDE RECORDS SUMMARY | ~2019-09-30 | XMS | Encounter Summary ---
Demographics + + + | Address | [address] | | | [place] [address] | + + + | Home Phone [...] Providers + +------+ + | Care Forestry Worker Name | Role | Phone | [...] | [place], [place] | [place] [address] | | | | | [address] | [phone] | | | | | [phone] | | | +--------+ + + + [...] | | | | | [place] [address] | | | | | | [phone] | | | | | | | | +--------+ + + + + | 10/30/ | Office | Primary Care | Erika Ernst, | | | 2019 | Visit | | DO [address] | | | | | | [place] [address] | | | | | | [phone] | | | | | | | [...] [place] | | | | | | [address] | | | | | | [phone] | | | | | | | | +--------+ + + + + | 02/09/ | Office | Neurology | Dhara, | | | 2020 | Visit | | DWA[address] Ross [address] | | | [address] [place], | | | | | | [place] [address] | | | | | | [phone] | | | | | | | | +--------+ + + + + documented as of this encounter Visit Diagnoses Not on filedocumented in this encounter"
--- OUTSIDE RECORDS SUMMARY | ~2019-09-30 | XMS | Encounter Summary ---
Demographics + + + | Address | [address] | | | [place] [address] | + + + | Home Phone [...] Team Providers + +------+ + | Care Mortician Investigator Name | Role | Phone | + +------+ + PCP | Unavailable | + +------+ + Encounter Details +--------+ + + + + | Date | Type | Department | Care Team | Description | +--------+ + + + + | [facility] Denise Mcgregor | | | 2016 | Encounter | [facility] | G, SALES EXHIBITOR [address] | | | | | MEDICAL CL[facility] [address] | [place] | | | | | [address] [facility], | [address] | | | | | [place] [address] | [phone] | | | | | [phone] | | | +--------+ + + + [...] | | | | | [place] [address] | | | | | | [phone] | | | | | | | | +--------+ + + + + | 10/30/ | Office | Primary Care | Erika Ernst, | | | 2019 | Visit | | DO [address] [place] | | | | | | [place] [address] | | | | | | [phone] | | | | | | | [...] [place] | | | | | | [address] | | | | | | [phone] | | | | | | | | +--------+ + + + + | 02/09/ | Office | Neurology | Dhara, | | | 2020 | Visit | | DWA[address] Ross [address] [place], | | | | | | [place] [address] | | | | | | [phone] | | | | | | | | +--------+ + + + + documented as of this encounter Visit Diagnoses Not on filedocumented in this encounter"
--- OUTSIDE RECORDS SUMMARY | ~2019-09-30 | XMS | Encounter Summary ---
Demographics + + + | Address | [address] | | | [place] [address] | + + + | Home Phone [...] Team Providers + +------+ + | Care Game Designer Name | Role | Phone | [...] | [address] [place] | [place] [address] | | | | | [place], [place] | [phone] | | | | | [address] | | | | | | [phone] | | | +--------+ + + + [...] | 04/12/20 | | | (VITAMIN D3) 24388 | mouth Once a week | tablet [...] | | | | | [place] [address] | | | | | | [phone] | | | | | | | | +--------+ + + + + | 10/30/ | Office | Primary Care | Erika Ernst, | | | 2019 | Visit | | DO [address] [place] | | | | | | [place] [address] | | | | | | [phone] | | | | | | | [...] [place] | | | | | | [address] | | | | | | [phone] | | | | | | | | +--------+ + + + + | 02/09/ | Office | Neurology | Dhara, | | | 2019 | Visit | | [address]WA[address] Ross [address] | [address] [place], | | | | | | [place] [address] | | | | | | [phone] | | | | | | | [...] -------+ | Mitchel, Rad Results In - 05/20/2019 1:40 PM [...]
--- OUTSIDE RECORDS SUMMARY | ~2019-09-30 | XMS | Encounter Summary ---
Demographics + + + | Address | [address] | | | [place] [address] | + + + | Home Phone [...] Team Providers + +------+ + | Care Tree Shear Operator Name | Role | Phone | + +------+ + PCP | Unavailable | + +------+ + Encounter Details +--------+ + + + + | Date | Type | Department | Care Team | Description | +--------+ + + + + | 05/12/ | Hospital | [facility] | Camille Bush | | | 2017 | Encounter | [facility] | MCKENZIE Matt [address] | | | | | [facility] [address] | 4th [facility], | | | | | 4TH [facility], | [place] [address] | | | | | [place] [address] | [phone] | | | | | [phone] | | | +--------+ + + + [...] | | | | | [place] [address] | | | | | | [phone] | | | | | | | | +--------+ + + + + | 10/30/ | Office | Primary Care | Erika Ernst, | | | 2019 | Visit | | DO [address] [place] | | | | | | [place] [address] | | | | | | [phone] | | | | | | | [...] [place] | | | | | | [address] | | | | | | [phone] | | | | | | | | +--------+ + + + + | 02/09/ | Office | Neurology | Dhara, | | | 2020 | Visit | | [address]WA[address] Ross [address] [place], | | | | | | [place] [address] | | | | | | [phone] | | | | | | | | +--------+ + + + + documented as of this encounter Visit Diagnoses Not on filedocumented in this encounter"
--- OUTSIDE RECORDS SUMMARY | ~2019-09-30 | XMS | Encounter Summary ---
Demographics + + + | Address | [address] | | | [place] [address] | + + + | Home Phone [...] + +------+ + | Care Project Management Engineer Name | Role | Phone | + +------+ + PCP | Unavailable | + +------+ + Encounter Details +--------+ + + + + | Date | Type | Department | Care Team | Description | +--------+ + + + + | 05/24/ | [facility] | Lb Mirza | | | 2015 | Encounter | [facility] | MD [address] | | | | | CENTER [address] | [facility] | | | | | [place] | [place] [address] | | | | | [address] | [phone] | | | | | [phone] | | | +--------+ + + + [...] | | | | | [place] [address] | | | | | | [phone] | | | | | | | | +--------+ + + + + | 10/30/ | Office | Primary Care | Erika Ernst, | | | 2019 | Visit | | DO [address] [place] | | | | | | [place] [address] | | | | | | [phone] | | | | | | | [...] [place] | | | | | | [address] | | | | | | [phone] | | | | | | | | +--------+ + + + + | 02/09/ | Office | Neurology | Dhara, | | | 2020 | Visit | | [address]WA[address] [place], | | | | | | [place] [address] | | | | | | [phone] | | | | | | | | +--------+ + + + + documented as of this encounter Visit Diagnoses Not on filedocumented in this encounter"
--- OUTSIDE RECORDS SUMMARY | ~2019-09-30 | XMS | Encounter Summary ---
Demographics + + + | Address | [address] | | | [place] [address] | + + + | Home Phone [...] Team Providers + +------+ + | Care Newspaper Reporter Name | Role | Phone | + +------+ + PCP | Unavailable | + +------+ + Encounter Details +--------+ + + + + | Date | Type | Department | Care Team | Description | +--------+ + + + + | [facility] | Denise Mcgregor | | | 2017 | Encounter | [facility] | G, MOLECULAR GENETIC PATHOLOGIST [address] | | | | | MEDICAL CLINIC [address] | [place] | | | | | [address] [facility], | [address] | | | | | [place] [address] | [phone] | | | | | [phone] | | | +--------+ + + + [...] | | | | | [place] [address] | | | | | | [phone] | | | | | | | | +--------+ + + + + | 10/30/ | Office | Primary Care | Erika Ernst, | | | 2019 | Visit | | DO [address] | | | | | | [place] [address] | | | | | | [phone] | | | | | | | [...] [place] | | | | | | [address] | | | | | | [phone] | | | | | | | | +--------+ + + + + | 02/09/ | Office | Neurology | Dhara, | | | 2020 | Visit | | [address] | | | | | | [address] [place], | | | | | | [place] [address] | | | | | | [phone] | | | | | | | | +--------+ + + + + documented as of this encounter Visit Diagnoses Not on filedocumented in this encounter"
--- OUTSIDE RECORDS SUMMARY | ~2019-09-30 | XMS | Encounter Summary ---
Demographics + + + | Address | [address] | | | [place] [address] | + + + | Home Phone [...] Providers + +------+ + | Care Logistics Planning Engineer Name | Role | Phone | + +------+ + PCP | Unavailable | + +------+ + Encounter Details +--------+ + + + + | Date | Type | Department | Care Team | Description | +--------+ + + + + | 04/19/ | Hospital | [facility] | Tyrese Kee | | | 2015 | Encounter | HOSPITAL [facility] | MD Peter [address] | | | | | [address] | [address] [place] | | | | | [place], [place] | [place] [address] | | | | | [address] | [phone] | | | | | [phone] | | | +--------+ + + + [...] | | | | | [place] [address] | | | | | | [phone] | | | | | | | | +--------+ + + + + | 10/30/ | Office | Primary Care | Erika Ernst, | | | 2019 | Visit | | DO [address] [place] | | | | | | [place] [address] | | | | | | [phone] | | | | | | | [...] [place] | | | | | | [address] | | | | | | [phone] | | | | | | | | +--------+ + + + + | 02/09/ | Office | Neurology | Dhara, | | | 2020 | Visit | | [address]WA[address] | | [address] [place], | | | | | | [place] [address] | | | | | | [phone] | | | | | | | | +--------+ + + + + documented as of this encounter Visit Diagnoses Not on filedocumented in this encounter"
--- OUTSIDE RECORDS SUMMARY | ~2019-09-30 | XMS | Encounter Summary ---
Demographics + + + | Address | [address] | | | [place] [address] | + + + | Home Phone [...] | | | | | | [place] [address] | [place] | | | | | | Phone: | [phone] Phone: | | | | | | [phone] | [phone] | | | | | | Fax: | Fax: | | | | | | [phone] | [phone] | +--------+ + + + + + [...] | | | | disorder) | [place] [address] | [place], [place] | | | | | | Phone: | [address] | | | | | | [phone] | Phone: | | | | | | Fax: | [phone] | | | | | | [phone] | Fax: | | | | | | | [phone] | +--------+ + + + + + [...] | MEDICAL CL[facility] [address] | [place] [address] | (Primary Dx); TMJ | | | | [address] [place], | [phone] | (temporomandibular | | | | [place] [address] | | joint disorder); | | | | [phone] | | Anxiety; Short-term | | | [...] popping of bilateral joints and does wear mica layer at night but would like to see [...] to the short term memory issues. No long-term loss. She also has had increased stress [...] 10 mg daily. Referral to PT at [facility] for TMJ dysfunction. Increase Buspa r to [...] | | | | | [place] [address] | | | | | | [phone] | | | | | | | | +--------+ + + + + | 10/30/ | Office | Primary Care | Erika Ernst, | | | 2019 | Visit | | DO [address] [place] | | | | | | [place] [address] | | | | | | [phone] | | | | | | | [...] [place] | | | | | | [address] | | | | | | [phone] | | | | | | | | +--------+ + + + + | 02/09/ | Office | Neurology | Dhara, | | | 2019 | Visit | | [address]WAINE Ross [address] | | | [address] [place], | | | | | | [place] [address] | | | | | | [phone] | | | | | | | [...]
--- OUTSIDE RECORDS SUMMARY | ~2019-09-30 | XMS | Encounter Summary ---
Demographics + + + | Address | [address] | | | [place] [address] | + + + | Home Phone [...] Providers + +------+ + | Care Rubber Factory Worker Name | Role | Phone [...] | [address] [place] | [place] [address] | | | | | [place] | [phone] | | | | | [address] | | | | | | [phone] | | | +--------+ + + + [...] | | | | | [place] [address] | | | | | | [phone] | | | | | | | | +--------+ + + + + | 10/30/ | Office | Primary Care | Erika Ernst, | | | 2019 | Visit | | DO [address] [place] | | | | | | [place] [address] | | | | | | [phone] | | | | | | | [...] [place] | | | | | | [address] | | | | | | [phone] | | | | | | | | +--------+ + + + + | 02/09/ | Office | Neurology | Dhara, | | | 2020 | Visit | | [address] | | | | | | [address] [place], | | | | | | [place] [address] | | | | | | [phone] | | | | | | | | +--------+ + + + + documented as of this encounter Visit Diagnoses Not on filedocumented in this encounter"
--- OUTSIDE RECORDS SUMMARY | ~2019-09-30 | XMS | Encounter Summary ---
Demographics + + + | Address | [address] | | | [place] [address] | + + + | Home Phone [...] + +------+ + | Care Food Service Substitute Name | Role | Phone | + [...] | MEDICAL [facility] [address] | [place] [address] | | | | | [address] [place], | [phone] | | | | | [place] [address] | | | | | | [phone] | | | +--------+ + + + [...] | | | | | [place] [address] | | | | | | [phone] | | | | | | | | +--------+ + + + + | 10/30/ | Office | Primary Care | Erika Ernst, | | | 2019 | Visit | | DO [address] [place] [address] | | | | | | [place] [address] | | | | | | [phone] | | | | | | | [...] [place] | | | | | | [address] | | | | | | [phone] | | | | | | | | +--------+ + + + + | 02/09/ | Office | Neurology | Dhara, | | | 2019 | Visit | | [address]WA[address] | | | | | | [address] [place], | | | | | | [place] [address] | | | | | | [phone] | | | | | | | | +--------+ + + + + documented as of this encounter Visit Diagnoses Not on filedocumented in this encounter"
--- OUTSIDE RECORDS SUMMARY | ~2019-09-30 | XMS | Encounter Summary ---
Demographics + + + | Address | [address] | | | [place] [address] | + + + | Home Phone [...] Providers + +------+ + | Care Waiter/Waitress Tourist Class Name | Role | Phone | + [...] [address] | [place] [address] | | | | | [place], [place] | [phone] | | | | | [address] | | | | | | [phone] | | | +--------+ + + + [...] | 11/26/19 | | | (VITAMIN D3) 61170 | mouth Once a week | tablet [...] | | | | | [place] [address] | | | | | | [phone] | | | | | | | | +--------+ + + + + | 10/30/ | Office | Primary Care | Erika Ernst, | | | 2019 | Visit | | DO [address] | | | | | | [place] [address] | | | | | | [phone] | | | | | | | [...] [place] | | | | | | [address] | | | | | | [phone] | | | | | | | | +--------+ + + + + | 02/09/ | Office | Neurology | Dhara, | | | 2019 | Visit | | DWA[address] | | | | | [address] [place], | | | | | | [place] [address] | | | | | | [phone] | | | | | | | [...]
--- OUTSIDE RECORDS SUMMARY | ~2019-09-30 | XMS | Encounter Summary ---
Demographics + + + | Address | [address] | | | [place] [address] | + + + | Home Phone [...] Team Providers + +------+ + | Care Paper Cup Machine Tender Name | Role | Phone [...] | | | of left | [place] [address] | [place] [address] | | | | | ankle, | Phone: | Phone: | | | | | initial | [phone] | [phone] | | | | | encounter | Fax: | Fax: | | | | | Procedures | [phone] | [phone] | | | | | PT TREAT [...] [address] | [place] [address] | encounter (Primary | | | | [place], [place] | [phone] | Dx) | | | | [address] | | | | | | [phone] | Nick Barrios I, PT | | [...] might be different fro m the original. [facility] PT [address] [place] [address] Physical Therapy Daily Treatment Note Date: 09/14/2018 [...] in favor of SL heel raise with FOOD SERVICES COORDINATOR. ONGOING: SLS on even surface 3x30 [...] SLS eyes closed 1x30 seconds, 2x1 minute FOOD SERVICES COORDINATOR grab bar, Oanh disc SLS 1x30 seconds, 1x1 minute FOOD SERVICES COORDINATOR grab bar as needed, Tandem gait forward/backwar [...] | | | | | [place] [address] | | | | | | [phone] | | | | | | | | +--------+ + + + + | 10/30/ | Office | Primary Care | Erika Ernst, | | | 2019 | Visit | | DO [address] | | | | | | [place] [address] | | | | | | [phone] | | | | | | | [...] [place] | | | | | | [address] | | | | | | [phone] | | | | | | | | +--------+ + + + + | 02/09/ | Office | Neurology | Dhara, | | | 2019 | Visit | | [address] | | | | | [address] [place], | | | | | | [place] [address] | | | | | | [phone] | | | | | | | | +--------+ + + + + documented as of this encounter Visit Diagnoses + + | Diagnosis | + + | Sprain of left ankle, subsequent encounter - Primary | + + documented in this encounter
--- OUTSIDE RECORDS SUMMARY | ~2019-09-30 | XMS | Encounter Summary ---
Demographics + + + | Address | [address] | | | [place] [address] | + + + | Home Phone [...] Team Providers + +------+ + | Care Glove Examiner Name | Role | Phone | [...] | [facility] | [place] [address] | | | | [address] [place], | [phone] | | | | | [place] [address] | | | | | | [phone] | | | +--------+ + + + [...] | | | | | [place] [address] | | | | | | [phone] | | | | | | | | +--------+ + + + + | 10/30/ | Office | Primary Care | Erika Ernst, | | | 2019 | Visit | | DO [address] [place] [address] | | | | | | [place] [address] | | | | | | [phone] | | | | | | | [...] [place] | | | | | | [address] | | | | | | [phone] | | | | | | | | +--------+ + + + + | 02/09/ | Office | Neurology | Dhara, | | | 2019 | Visit | | [address] | | | [address] [place], | | | | | | [place] [address] | | | | | | [phone] | | | | | | | | +--------+ + + + + documented as of this encounter Visit Diagnoses Not on filedocumented in this encounter"
--- OUTSIDE RECORDS SUMMARY | ~2019-09-30 | XMS | Encounter Summary ---
Demographics + + + | Address | [address] | | | [place] [address] | + + + | Home Phone [...] Providers + +------+ + | Care Retail And Restaurant Associate Name | Role | Phone | [...] | 2018 | | [facility] | GRAPHIC ARTS INSTRUCTOR | asthma severity, | | | | [facility] [address] | | unspecified whether | | | | [address] [place], | | complicated, | | | | [place] [address] | | unspecified whether | | | | [phone] | | persistent (Primary | | | [...] | | | | | [place] [address] | | | | | | [phone] | | | | | | | | +--------+ + + + + | 10/30/ | Office | Primary Care | Erika Ernst, | | | 2019 | Visit | | DO [address] | | | | | | [place] [address] | | | | | | [phone] | | | | | | | [...] [place] | | | | | | [address] | | | | | | [phone] | | | | | | | | +--------+ + + + + | 02/09/ | Office | Neurology | Dhara, | | | 2019 | Visit | | [address] | | | [address] [place], | | | | | | [place] [address] | | | | | | [phone] | | | | | | | | +--------+ + + + + documented as of this encounter Visit Diagnoses + + | Diagnosis | + + | Asthma, unspecified asthma severity, unspecified whether complicated, unspecified | | whether persistent - Primary | + + documented in this encounter"
--- OUTSIDE RECORDS SUMMARY | ~2019-09-30 | XMS | Encounter Summary ---
Demographics + + + | Address | [address] | | | [place] [address] | + + + | Home Phone [...] Providers + +------+ + | Care Frame Repairer Name | Role | Phone | + +------+ + | Erika Ernst DO | PCP | | + +------+ + Reason for Visit + + + | Reason | Comments | + + + | Medication Reaction | | + + + Encounter Details +--------+ + + + + | Date | Type | Department | Care Team | Description | +--------+ + + + + | 01/16/ | Telephone | [place] [facility] | Erika Ernst, | Medication Reaction | | 2019 | | [facility] | DO [address] | | | | | [facility] [address] | [place] [address] | | | | | [address] [place], | [phone] | | | | | [place] [address] | | | | | | [phone] | | | +--------+ + + + [...] | | | | | [place] [address] | | | | | | [phone] | | | | | | | | +--------+ + + + + | 10/30/ | Office | Primary Care | Erika Ernst, | | | 2019 | Visit | | DO [address] [place] [address] | | | | | | [place] [address] | | | | | | [phone] | | | | | | | [...] [place] | | | | | | [address] | | | | | | [phone] | | | | | | | | +--------+ + + + + | 02/09/ | Office | Neurology | Dhara, | | | 2019 | Visit | | [address] | | | | | | [address] [place], | | | | | | [place] [address] | | | | | | [phone] | | | | | | | | +--------+ + + + + documented as of this encounter Visit Diagnoses Not on filedocumented in this encounter"
--- OUTSIDE RECORDS SUMMARY | ~2019-09-30 | XMS | Encounter Summary ---
Demographics + + + | Address | [address] | | | [place] [address] | + + + | Home Phone [...] Team Providers + +------+ + | Care Export Clerk Name | Role | Phone | [...] | | [facility] [address] | [place] [address] | | | | | [address] [facility], | [phone] | | | | | [place] [address] | | | | | | [phone] | | | +--------+ + + + [...] | | | | | [place] [address] | | | | | | [phone] | | | | | | | | +--------+ + + + + | 10/30/ | Office | Primary Care | Erika Ernst, | | | 2019 | Visit | | DO [address] | | | | | | [place] [address] | | | | | | [phone] | | | | | | | [...] [place] | | | | | | [address] | | | | | | [phone] | | | | | | | | +--------+ + + + + | 02/09/ | Office | Neurology | Dhara, | | | 2019 | Visit | | [address] | | | | | | [address] [place], | | | | | | [place] [address] | | | | | | [phone] | | | | | | | | +--------+ + + + + documented as of this encounter Visit Diagnoses Not on filedocumented in this encounter"
--- OUTSIDE RECORDS SUMMARY | ~2019-09-30 | XMS | Encounter Summary ---
Demographics + + + | Address | [address] | | | [place] [address] | + + + | Home Phone [...] Providers + +------+ + | Care Software Configuration Specialist Name | Role | Phone | [...] + + | 02/28/ | Refill | [facility] | Erika Ernst, | Medication Refill; | | 2018 | | [facility] | [address] | Medication Refill | | | | [facility] [address] | [facility] [place] [address] | | | | | [address] [place], | [phone] | | | | | [place] [address] | | | | | | [phone] | | | +--------+--------+ + + + [...] | | | | | [place] [address] | | | | | | [phone] | | | | | | | | +--------+ + + + + | 10/30/ | Office | Primary Care | Erika Ernst, | | | 2019 | Visit | | DO [address] | | | | | | [place] [address] | | | | | | [phone] | | | | | | | [...] [place] | | | | | | [address] | | | | | | [phone] | | | | | | | | +--------+ + + + + | 02/09/ | Office | Neurology | Dhara, | | | 2020 | Visit | | [address] | | | | | [address] [place], | | | | | | [place] [address] | | | | | | [phone] | | | | | | | | +--------+ + + + + documented as of this encounter Visit Diagnoses Not on filedocumented in this encounter"
--- OUTSIDE RECORDS SUMMARY | ~2019-09-30 | XMS | Encounter Summary ---
Demographics + + + | Address | [address] | | | [place] [address] | + + + | Home Phone [...] Team Providers + +------+ + | Care Autotransfusionist Name | Role | Phone | + +------+ + PCP | Unavailable | + +------+ + Encounter Details +--------+ + + + + | Date | Type | Department | Care Team | Description | +--------+ + + + + | 08/26/ | [facility] | Jessica Hoang, | | | 2012 | Encounter | [facility] | [address] | | | | | CENTER [address] | [place] | | | | | [address] [place] | [address] | | | | | [address] | | | | | | [phone] | | | +--------+ + + + [...] | | | | | [place] [address] | | | | | | [phone] | | | | | | | | +--------+ + + + + | 10/30/ | Office | Primary Care | Erika Ernst, | | | 2019 | Visit | | DO [address] | | | | | | [place] [address] | | | | | | [phone] | | | | | | | [...] [place] | | | | | | [address] | | | | | | [phone] | | | | | | | | +--------+ + + + + | 02/09/ | Office | Neurology | Dhara, | | | 2020 | Visit | | [address] | | | | [address] [place], | | | | | | [place] [address] | | | | | | [phone] | | | | | | | | +--------+ + + + + documented as of this encounter Visit Diagnoses Not on filedocumented in this encounter"
--- OUTSIDE RECORDS SUMMARY | ~2019-09-30 | XMS | Encounter Summary ---
Demographics + + + | Address | [address] | | | [place] [address] | + + + | Home Phone [...] Team Providers + +------+ + | Care Resistor Winder Name | Role | Phone | + [...] deficiency | | 2019 | | [facility] | DO [address] | | | | | [facility] [address] | [facility] [place] [address] | | | | | [address] [place], | [phone] | | | | | [place] [address] | | | | | | [phone] | | | +--------+ + + + [...] 2019 | Visit | | DO [address] | | | | | | [place] [address] | | | | | | [phone] | | | | | | | | +--------+ + + + + | 01/29/ | Office | Primary Care | Erika Ernst, | | | 2019 | Visit | | DO [address] | | | | | | [place] [address] | | | | | | [phone] | | | | | | | [...] [place] | | | | | | [address] | | | | | | [phone] | | | | | | | | +--------+ + + + + | 02/09/ | Office | Neurology | Dhara, | | | 2019 | Visit | | [address] | | | | | [address] [place], | | | | | | [place] [address] | | | | | | [phone] | | | | | | | | +--------+ + + + + documented as of this encounter Visit Diagnoses + + | Diagnosis | + + | Iron deficiency Other disorders of iron metabolism | + + documented in this encounter"
--- OUTSIDE RECORDS SUMMARY | ~2019-09-30 | XMS | Encounter Summary ---
Demographics + + + | Address | [address] | | | [place] [address] | + + + | Home Phone [...] Providers + +------+ + | Care Parcel Wrapper Name | Role | Phone | + [...] | | | | s (de | [place], [place] | [place] [address] | | | | | quervain) | [address] | Phone: | | | | | Pain in | Phone: | [phone] | | | | | right wrist | [phone] | Fax: | | | | | Procedures | Fax: | [phone] | | | | | OT TREAT | [phone] | | +--------+--------+ + + + + [...] | | [address] | [place] [address] | (Primary Dx); Right | | | | [place], [place] | [phone] | wrist pain | | | | [address] | | | | | | [phone] | Nakia Koo OT | | +--------+ [...] PST [place] [facility] OT [address] [place] [address] Occupational Therapy Daily Treatment Note Date: 10/18/2018 [...] have some deficits in AROM, pinch and gas blender strength. She has returned to modified work [...] pt has made progress with her R gas blender strength, but is still experiencing activity limiting [...] in 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, and gas blender and pinch weakness in the right hand [...] | | | | | [place] [address] | | | | | | [phone] | | | | | | | | +--------+ + + + + | 10/30/ | Office | Primary Care | Erika Ernst, | | | 2019 | Visit | | DO [address] | | | | | | [place] [address] | | | | | | [phone] | | | | | | | [...] [place] | | | | | | [address] | | | | | | [phone] | | | | | | | | +--------+ + + + + | 02/09/ | Office | Neurology | Dhara, | | | 2019 | Visit | | [address] | | | | | | [address] [place], | | | | | | [place] [address] | | | | | | [phone] | | | | | | | | +--------+ + + + + documented as of this encounter Visit Diagnoses + + | Diagnosis | + + | Radial styloid tenosynovitis - Primary | + + | Right wrist pain Pain in joint, forearm | + + documented in this encounter"
--- OUTSIDE RECORDS SUMMARY | ~2019-09-30 | XMS | Encounter Summary ---
Demographics + + + | Address | [address] | | | [place] [address] | + + + | Home Phone [...] Team Providers + +------+ + | Care Sail Lay Out Worker Name | Role | Phone | [...] | | | of left | [place] [address] | [place] [address] | | | | | ankle, | Phone: | Phone: | | | | | initial | [phone] | [phone] | | | | | encounter | Fax: | Fax: | | | | | Procedures | [phone] | [phone] | | | | | PT EVAL [...] [address] [place] | [place] [address] | ligament of left | | | | [place], [place] | [phone] | ankle, initial | | | | [address] | | encounter | | | | [phone] | Nikc Barrios I, PT | | +--------+ + [...] abnormalities. Patient would benefit from skilled physical therapist technician apy in order to address noted deficits [...] at 4/10 currently. Treatment Plan/Interventions PT EvaluationPT Re-Rftamozrzk34506 - Therapeutic Izlujdmu68007 - Neuromuscular Reeducation9 7116 - Gait Sdqfbadd30771 - Therapeutic Biopvvegzh56645 - Manual Ienmxep41606 - Self Care/Ho me Vwgwcohynk39273 - Group Therapeutic Evnwuskuwu27231 - Aquatic Therapy/Uazsyyovn77858 - Io cgxollfwqxw78053 - TENS Application/Quvlcsteqlw30702 - Electrical Stimulation, Humltlhvpx834 35 - Ultrasound Electronically signed by: Nick Barrios PT, 07/05/2018 18:02 Patient Name: Andrea Suh/: 1990/ oseph, Nick Szymanski, PT - 07/05/2018 4:[address] [facility] PT [address] [place] [address] Physical Therapy Initial Assessment Date: 07/05/2018 Patient [...] tolerance, hikin g. 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 Level of Milam: independent Additional Documentation: deviations Gait Deviations: stride [...] Certification To: 08/09/2018 Treatment Plan/Interventions PT EvaluationPT Re-Hpxmakzsug05361 - Therapeutic Mmipqkuq76553 - Neuromuscular Reeducation9 7116 - Gait Sjjixmer00179 - Therapeutic Zumteozqwz64278 - Manual Beuukkf11640 - Self Care/Ho me Curwkrwxgk87042 - Group Therapeutic Eqtgutejqq10830 - Aquatic Therapy/Omprbeliu07602 - Io ksjtbazzmcq27275 - TENS Application/Fnpsivbmsuq24333 - Electrical Stimulation, Boybhmpmtt404 35 - Ultrasound Patient and/or family has [...] | | | | | [place] [address] | | | | | | [phone] | | | | | | | | +--------+ + + + + | 10/30/ | Office | Primary Care | Erika Ernst, | | | 2019 | Visit | | DO [address] | | | | | | [place] [address] | | | | | | [phone] | | | | | | | [...] [place] | | | | | | [address] | | | | | | [phone] | | | | | | | | +--------+ + + + + | 02/09/ | Office | Neurology | Dhara, | | | 2019 | Visit | | [address] | | | | | [address] [place], | | | | | | [place] [address] | | | | | | [phone] | | | | | | | [...]
--- OUTSIDE RECORDS SUMMARY | ~2019-09-30 | XMS | Encounter Summary ---
Demographics + + + | Address | [address] | | | [place] [address] | + + + | Home Phone [...] Team Providers + +------+ + | Care Cordwainer Name | Role | Phone | + [...] | | | | [place] | [address] | | | | | [address] | [phone] | | | | | [phone] | | | +--------+ + + + [...] | | | | | [place] [address] | | | | | | [phone] | | | | | | | | +--------+ + + + + | 10/30/ | Office | Primary Care | Erika Ernst, | | | 2019 | Visit | | DO [address] | | | | | | [place] [address] | | | | | | [phone] | | | | | | | [...] [place] | | | | | | [address] | | | | | | [phone] | | | | | | | | +--------+ + + + + | 02/09/ | Office | Neurology | Dhara, | | | 2019 | Visit | | [address] | | | | | [address] [place], | | | | | | [place] [address] | | | | | | [phone] | | | | | | | | +--------+ + + + + documented as of this encounter Visit Diagnoses Not on filedocumented in this encounter"
--- OUTSIDE RECORDS SUMMARY | ~2019-09-30 | XMS | Encounter Summary ---
Demographics + + + | Address | [address] | | | [place] [address] | + + + | Home Phone [...] Team Providers + +------+ + | Care Drilling Rig Operator Name | Role | Phone | + +------+ + | rEika Ernst DO | PCP | | + [...] | | | | s (de | [place], [place] | [place] [address] | | | | | quervain) | [address] | Phone: | | | | | Pain in | Phone: | [phone] | | | | | right wrist | [phone] | Fax: | | | | | Procedures | Fax: | [phone] | | | | | OT TREAT | [phone] | | +--------+--------+ + + + + [...] | | [address] | [place] [address] | (Primary Dx); Right | | | | [place], [place] | [phone] | wrist pain | | | | [address] | | | | | | [phone] | Nakia Koo OT | | +--------+ [...] | 19 | 9 | | BRACE [id number]) | | | | | | | [...] Koo, OT - 11/01/2018 1:22 PM PST [facility] OT [address] [place] [address] Occupational Therapy Daily Treatment Note Date: 11/01/2018 Patient Information Patient Name: Andrea Suh Date of : 1990 Age: 28 y.o. History Encounter Diagnoses Code Name Primary? 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 weakness and significant pain (3 [...] in 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, and printing equipment mechanic and pinch weakness in the right hand [...] [address] | | | | | | [phone] | | | | | | | | +--------+ + + + + | 10/30/ | Office | Primary Care | Erika Ernst, | | | 2019 | Visit | | DO [address] | | | | | | [place] [address] | | | | | | [phone] | | | | | | | [...] [place] | | | | | | [address] | | | | | | [phone] | | | | | | | | +--------+ + + + + | 02/09/ | Office | Neurology | Dhara, | | | 2019 | Visit | | [address] | | | | | [address] [place], | | | | | | [place] [address] | | | | | | [phone] | | | | | | | | +--------+ + + + + documented as of this encounter Visit Diagnoses + + | Diagnosis | + + | Radial styloid tenosynovitis - Primary | + + | Right wrist pain Pain in joint, forearm | + + documented in this encounter
--- OUTSIDE RECORDS SUMMARY | ~2019-09-30 | XMS | Encounter Summary ---
Demographics + + + | Address | [address] | | | [place] [address] | + + + | Home Phone [...] Team Providers + +------+ + | Care Claim Auditor Name | Role | Phone | + +------+ + PCP | Unavailable | + +------+ + Encounter Details +--------+ + + + + | Date | Type | Department | Care Team | Description | +--------+ + + + + | [facility] | Denise Mcgregor | | | 2015 | Encounter | [facility] | G, BILINGUAL ACCOUNT MANAGER [address] | | | | | [facility] | [facility] [place] | | | | [address] [facility], | [address] | | | | | [place] [address] | [phone] | | | | | [phone] | | | +--------+ + + + [...] | | | | | [place] [address] | | | | | | [phone] | | | | | | | | +--------+ + + + + | 10/30/ | Office | Primary Care | Eriak Ernst, | | | 2019 | Visit | | DO [address] | | | | | | [place] [address] | | | | | | [phone] | | | | | | | [...] [place] | | | | | | [address] | | | | | | [phone] | | | | | | | | +--------+ + + + + | 02/09/ | Office | Neurology | Dhara, | | | 2020 | Visit | | [address] | | | | [address] [place], | | | | | | [place] [address] | | | | | | [phone] | | | | | | | | +--------+ + + + + documented as of this encounter Visit Diagnoses Not on filedocumented in this encounter"
--- OUTSIDE RECORDS SUMMARY | ~2019-09-30 | XMS | Encounter Summary ---
Demographics + + + | Address | [address] | | | [place] [address] | + + + | Home Phone [...] Providers + +------+ + | Care Account Installation Specialist Name | Role | Phone [...] Dx) | | 2019 | Visit | [facility] | DWAINE Rob | | | | | [facility] | [address] [place] [address] | | | | | [address]TH [facility], | [place] [address] | | | | | [place] [address] | [phone] | | | | | [phone] | | | +--------+---------+ + + + [...] of Present Illness: Andrea presents to the [facility] for the following concern(s): Skin problem Onset: [...] | | | | | [place] [address] | | | | | | [phone] | | | | | | | | +--------+ + + + + | 10/30/ | Office | Primary Care | Erika Ernst, | | | 2019 | Visit | | DO [address] | | | | | | [place] [address] | | | | | | [phone] | | | | | | | [...] [place] | | | | | | [address] | | | | | | [phone] | | | | | | | | +--------+ + + + + | 02/09/ | Office | Neurology | Dhara, | | | 2019 | Visit | | [address] | | | | | [address] [place], | | | | | | [place] [address] | | | | | | [phone] | | | | | | | | +--------+ + + + + documented as of this encounter Visit Diagnoses + + | Diagnosis | + + | Blister - Primary Other, multiple, and unspecified sites, blister, without mention of | | infection | + + documented in this encounter
--- OUTSIDE RECORDS SUMMARY | ~2019-09-30 | XMS | Encounter Summary ---
Demographics + + + | Address | [address] | | | [place] [address] | + + + | Home Phone [...] Team Providers + +------+ + | Care Housing Grant Analyst Name | Role | Phone | [...] | | | of left | [place] [address] | [place] [address] | | | | | ankle, | Phone: | Phone: | | | | | initial | [phone] | [phone] | | | | | encounter | Fax: | Fax: | | | | | Procedures | [phone] | [phone] | | | | | PT EVAL [...] [address] | [place] [address] | encounter (Primary | | | | [place], [place] | [phone] | Dx) | | | | [address] | | | | | | [phone] | Nick Barrios I, PT | | [...] Ordering Physician: Erika Ernst DO Claim #: [id number] Date of Injury: 06/11/2018 Visits since the [...] Certification To: 11/02/2018 Treatment Plan/Interventions PT EvaluationPT Re-Vozegsnulc81646 - Therapeutic Gkzdtozu32512 - Neuromuscular Reeducation9 7116 - Gait Izcvhcpt75398 - Therapeutic Ktuwmgvuza80158 - Manual Veotkqs32599 - Self Care/Ho me Zwzfexmemw69634 - Group Therapeutic Wugwesjpkh37625 - Aquatic Therapy/Qmpffafec61425 - Io xwwnobzxzev65758 - TENS Application/Toivprhoczt20251 - Electrical Stimulation, Lmtyalunfd266 35 - Ultrasound Patient and/or family has [...] reports of muscle fatigue an d requiring CUSTOM WOOD STAIR BUILDER with grab bar in order to maintain [...] continuation of physical therapy services into [facility] period [...] note might be different from the original. [facility] PT [address] [place] [address] Physical Therapy Daily Treatment Note Date: 08/14/2018 [...] and B genuvalgum during ambulation Level of [place]: independent Gait Deviations: stride width increased, other [...] with reports of muscle fatigue and requiring CUSTOM WOOD STAIR BUILDER with gra b bar in order to [...] in favor of SL heel raise with CUSTOM WOOD STAIR BUILDER. ONGOING: SLS on even surface 3x30 seconds [...] 2x1 minute each foot positi on with CUSTOM WOOD STAIR BUILDER as needed with grab bar, SBA // Rhomberg stance on bosu eyes open CUSTOM WOOD STAIR BUILDER as needed 2x1 minute // additional time [...] | | | | | [place] [address] | | | | | | [phone] | | | | | | | | +--------+ + + + + | 10/30/ | Office | Primary Care | Erika Ernst, | | | 2019 | Visit | | DO [address] | | | | | | [place] [address] | | | | | | [phone] | | | | | | | [...] [place] | | | | | | [address] | | | | | | [phone] | | | | | | | | +--------+ + + + + | 02/09/ | Office | Neurology | Dhara, | | | 2019 | Visit | | DWAINE Ross [address] | | | | | [address] [place], | | | | | | [place] [address] | | | | | | [phone] | | | | | | | | +--------+ + + + + documented as of this encounter Visit Diagnoses + + | Diagnosis | + + | Sprain of left ankle, subsequent encounter - Primary | + + documented in this encounter
--- OUTSIDE RECORDS SUMMARY | ~2019-09-30 | XMS | Encounter Summary ---
Demographics + + + | Address | [address] | | | [place] [address] | + + + | Home Phone [...] Providers + +------+ + | Care Warp Tier Name | Role | Phone | [...] Results | | 2017 | | [facility] | ETHANOL MAINTENANCE MECHANIC | | | | | [facility]ICAL [facility] [address] | | | | | | [address] [facility] [place], | | | | | | [place] [address] | | | | | | [phone] | | | +--------+ + + + [...] | | | | | | [place] [address] | | | | | | [phone] | | | | | | | | +--------+ + + + + | 10/30/ | Office | Primary Care | Erika Ernst, | | | 2019 | Visit | | DO [address] | | | | | | [place] [address] | | | | | | [phone] | | | | | | | [...] [place] | | | | | | [address] | | | | | | [phone] | | | | | | | | +--------+ + + + + | 02/09/ | Office | Neurology | Dhara, | | | 2019 | Visit | | [address]WA[address] Ross [address] | | | | | [address] [place], | | | | | | [place] [address] | | | | | | [phone] | | | | | | | | +--------+ + + + + documented as of this encounter Visit Diagnoses Not on filedocumented in this encounter"
--- OUTSIDE RECORDS SUMMARY | ~2019-09-30 | XMS | Encounter Summary ---
Demographics + + + | Address | [address] | | | [place] [address] | + + + | Home Phone [...] Providers + +------+ + | Care Solar Sales Consultant Name | Role | Phone [...] 01/28/ | Telephone | [place] [facility] | Eriak Ernst, | Vaccines | | 2019 | | [facility] | DO [address] | | | | | MEDICAL CLINIC [address] | [place] [address] | | | | | [address] [place], | [phone] | | | | | [place] [address] | | | | | | [phone] | | | +--------+ + + + [...] | | | | | [place] [address] | | | | | | [phone] | | | | | | | | +--------+ + + + + | 10/30/ | Office | Primary Care | Erika Ernst, | | | 2019 | Visit | | DO [address] | | | | | | [place] [address] | | | | | | [phone] | | | | | | | [...] [place] | | | | | | [address] | | | | | | [phone] | | | | | | | | +--------+ + + + + | 02/09/ | Office | Neurology | Dhara, | | | 2019 | Visit | | DWA[address] Ross [address] | | | | [address] [place], | | | | | | [place] [address] | | | | | | [phone] | | | | | | | | +--------+ + + + + documented as of this encounter Visit Diagnoses Not on filedocumented in this encounter"
--- OUTSIDE RECORDS SUMMARY | ~2019-09-30 | XMS | Encounter Summary ---
Demographics + + + | Address | [address] | | | [place] [address] | + + + | Home Phone [...] Providers + +------+ + | Care Direct Sales Consultant Name | Role | Phone [...] | | | | encounter | [place] [address] | [place], [place] | | | | | | Phone: | [phone] Phone: | | | | | | [phone] | [phone] | | | | | | Fax: | Fax: | | | | | | [phone] | [phone] | + + + + + + + Encounter Details +--------+---------+ + + + | Date | Type | Department | Care Team | Description | +--------+---------+ + + + | 09/19/ | Office | [facility] | Jeffrey Gandhi, | Radial styloid | | 2019 | Visit | [facility] | MD [address] | tenosynovitis (de | | | | MEDICINE CHRIS | [place] [address] | quervain) (Primary | | | | [address] | [phone] | Dx); Right wrist | | | | [place], [place] | | pain | | | | [address] | | | | | | [phone] | | | +--------+---------+ + + + [...] might be different fro m the original. [facility]: Orthopedic Surgery Patient Name:Andrea Suh [...] E.C.U. Tendon; Surgeon: Inocencio Noriega MD; Location: [facility] SURGERY RIGHT KIDNER PROCEDURE 01/20/2016 Surgeon: Fani Mahajan MD; Location: [facility] TENDON RELEASE THYROID FINE NEEDLE ASPIRATION 09/02/2019 Procedure: US GUIDED THYROID FNA - Location: [facility] ULTRASOUND TONSILLECTOMY WISDOM TOOTH EXTRACTION Allergies Allergen [...] cancer Maternal Grandmother Heart attack Maternal Aunt [place] Hypertension Maternal Uncle Social History Socioeconomic History [...] file Gets together: Not on file Attends buddhist service: Not on file Active member of [...] MD This document has been prepared with [employer] voice recognition system. The possibility of "s ound alike" stenotype operator errors, and additions, or deletions may [...] | | | | | [place] [address] | | | | | | [phone] | | | | | | | | +--------+ + + + + | 10/30/ | Office | Primary Care | Erika Ernts, | | | 2019 | Visit | | DO [address] [place] | | | | | | [place] [address] | | | | | | [phone] | | | | | | | [...] [place] | | | | | | [address] | | | | | | [phone] | | | | | | | | +--------+ + + + + | 02/09/ | Office | Neurology | Dhara, | | | 2019 | Visit | | [address]WA[address] Ross [address] | | | | | [address] [place], | | | | | | [place] [address] | | | | | | [phone] | | | | | | | | +--------+ + + + + documented as of this encounter Visit Diagnoses + + | Diagnosis | + + | Radial styloid tenosynovitis (de quervain) - Primary | + + | Right wrist pain Pain in joint, forearm | + + documented in this encounter
--- OUTSIDE RECORDS SUMMARY | ~2019-09-30 | XMS | Encounter Summary ---
Demographics + + + | Address | [address] | | | [place] [address] | + + + | Home Phone [...] Team Providers + +------+ + | Care Sampling Expert Name | Role | Phone | [...] [facility] | MD Malcolm [address] | [facility]) | | | | [address] [place] | [address] [place] | | | | | [place], [place] | [place] [address] | | | | | [address] | [phone] | | | | | [phone] | | | +--------+ + + + [...] | | | | | [place] [address] | | | | | | [phone] | | | | | | | | +--------+ + + + + | 10/30/ | Office | Primary Care | Erika Ernst, | | | 2019 | Visit | | DO [address] [place] | | | | | | [place] [address] | | | | | | [phone] | | | | | | | [...] [place] | | | | | | [address] | | | | | | [phone] | | | | | | | | +--------+ + + + + | 02/09/ | Office | Neurology | Dhara, | | | 2019 | Visit | | [address]WA[address] Ross [address] | | | | | [address] [place], | | | | | | [place] [address] | | | | | | [phone] | | | | | | | | +--------+ + + + + documented as of this encounter Visit Diagnoses Not on filedocumented in this encounter"
--- OUTSIDE RECORDS SUMMARY | ~2019-09-30 | XMS | Encounter Summary ---
Demographics + + + | Address | [address] | | | [place] [address] | + + + | Home Phone [...] Providers + +------+ + | Care Film Library Clerk Name | Role | Phone | [...] | | | | s (de | [place], [place] | [place] [address] | | | | | quervain) | [address] | Phone: | | | | | Pain in | Phone: | [phone] | | | | | right wrist | [phone] | Fax: | | | | | Procedures | Fax: | [phone] | | | | | OT TREAT | [phone] | | +--------+--------+ + + + + [...] | | [address] [place] | [place] [address] | wrist pain | | | | [place] | [phone] | | | | | [address] | | | | | | [phone] | Milla Gracia, OT | | +--------+ [...] OT - 08/14/2018 4:[address] [facility] OT [address] [place] [address] Occupational Therapy Daily Treatment Note Date: 08/14/2018 [...] in 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, and closet organizer and pinch weakness i n the right [...] | | | | | [place] [address] | | | | | | [phone] | | | | | | | | +--------+ + + + + | 10/30/ | Office | Primary Care | Erika Ernst, | | | 2019 | Visit | | DO [address] [place] | | | | | | [place] [address] | | | | | | [phone] | | | | | | | [...] [place] | | | | | | [address] | | | | | | [phone] | | | | | | | | +--------+ + + + + | 02/09/ | Office | Neurology | Dhara, | | | 2019 | Visit | | [address] | | | | [address] [place], | | | | | | [place] [address] | | | | | | [phone] | | | | | | | | +--------+ + + + + documented as of this encounter Visit Diagnoses + + | Diagnosis | + + | Radial styloid tenosynovitis | + + | Right wrist pain Pain in joint, forearm | + + documented in this encounter"
--- OUTSIDE RECORDS SUMMARY | ~2019-09-30 | XMS | Encounter Summary ---
Demographics + + + | Address | [address] | | | [place] [address] | + + + | Home Phone [...] Providers + +------+ + | Care Coin Dealer Name | Role | Phone | [...] CLINIC [address] | [place] [address] | joint disorder) | | | | [address] [facility], | [phone] | (Primary Dx) | | | | [place] [address] | | | | | | [phone] | | | +--------+---------+ + + + [...] have made referral to oral surgeon at [facility] since she has failed conservative Tx for [...] appointment as planned with oral surgeon at [facility]. S moises hydrated and do not overdo [...] | | | | | [place] [address] | | | | | | [phone] | | | | | | | | +--------+ + + + + | 10/30/ | Office | Primary Care | Erika Ernst, | | | 2019 | Visit | | DO [address] | | | | | | [place] [address] | | | | | | [phone] | | | | | | | [...] [place] | | | | | | [address] | | | | | | [phone] | | | | | | | | +--------+ + + + + | 02/09/ | Office | Neurology | Dhara, | | | 2020 | Visit | | [address] | | | | | | [address] [facility], | | | | | | [place] [address] | | | | | | [phone] | | | | | | | | +--------+ + + + + documented as of this encounter Visit Diagnoses + + | Diagnosis | + + | TMJ (temporomandibular joint disorder) - Primary Temporomandibular joint disorders, | | unspecified | + + documented in this encounter
--- OUTSIDE RECORDS SUMMARY | ~2019-09-30 | XMS | Encounter Summary ---
Demographics + + + | Address | [address] | | | [place] [address] | + + + | Home Phone [...] Team Providers + +------+ + | Care Gang Rider Name | Role | Phone | + [...] Refill | | 2019 | | [facility] | [address] | | | | | MEDICAL CLINIC [address] | [place] [address] | | | | | [address] [place], | [phone] | | | | | [place] [address] | | | | | | [phone] | | | +--------+ + + + [...] | | | | | [place] [address] | | | | | | [phone] | | | | | | | | +--------+ + + + + | 10/30/ | Office | Primary Care | Erika Ernst, | | | 2019 | Visit | | DO [address] | | | | | | [place] [address] | | | | | | [phone] | | | | | | | [...] [place] | | | | | | [address] | | | | | | [phone] | | | | | | | | +--------+ + + + + | 02/09/ | Office | Neurology | Dhara, | | | 2020 | Visit | | [address] | | | | | | [address] [place], | | | | | | [place] [address] | | | | | | [phone] | | | | | | | | +--------+ + + + + documented as of this encounter Visit Diagnoses Not on filedocumented in this encounter"
--- OUTSIDE RECORDS SUMMARY | ~2019-09-30 | XMS | Encounter Summary ---
Demographics + + + | Address | [address] | | | [place] [address] | + + + | Home Phone [...] Providers + +------+ + | Care Multimedia Authoring Specialist Name | Role | Phone | [...] | | | 2018 | Support | [facility] | DO [address] | | | | | MEDICAL CLINIC [address] | [place] [address] | | | | | [address] [place], | [phone] | | | | | [place] [address] | | | | | | [phone] | | | +--------+ + + + [...] undergoing occupational therapy with Ni c[facility] at [facility] and has only regained 50% of her strength back. Please advise. I told pt we would give her a call back after we discussed with Dr. Ernst. Thanks [facility] (Can OT manage workman comp claim?) Electronically [...] | | | | | [place] [address] | | | | | | [phone] | | | | | | | | +--------+ + + + + | 10/30/ | Office | Primary Care | Erika Ernst, | | | 2019 | Visit | | DO [address] [place] | | | | | | [place] [address] | | | | | | [phone] | | | | | | | [...] [place] | | | | | | [address] | | | | | | [phone] | | | | | | | | +--------+ + + + + | 02/09/ | Office | Neurology | Dhara, | | | 2019 | Visit | | [address] | | | | | | [address] [place], | | | | | | [place] [address] | | | | | | [phone] | | | | | | | | +--------+ + + + + documented as of this encounter Visit Diagnoses Not on filedocumented in this encounter
--- OUTSIDE RECORDS SUMMARY | ~2019-09-30 | XMS | Encounter Summary ---
Demographics + + + | Address | [address] | | | [place] [address] | + + + | Home Phone [...] Team Providers + +------+ + | Care Moth Exterminator Name | Role | Phone | + [...] | MEDICAL CLINIC [address] | [place] [address] | | | | | [address] [place], | [phone] | | | | | [place] [address] | | | | | | [phone] | | | +--------+ + + + [...] | | | | | [place] [address] | | | | | | [phone] | | | | | | | | +--------+ + + + + | 10/30/ | Office | Primary Care | Erika Ernst, | | | 2019 | Visit | | DO [address] [place] [address] | | | | | | [place] [address] | | | | | | [phone] | | | | | | | [...] [place] | | | | | | [address] | | | | | | [phone] | | | | | | | | +--------+ + + + + | 02/09/ | Office | Neurology | Dhara, | | | 2019 | Visit | | [address] | | | | | [address] [place], | | | | | | [place] [address] | | | | | | [phone] | | | | | | | | +--------+ + + + + documented as of this encounter Visit Diagnoses Not on filedocumented in this encounter"
--- OUTSIDE RECORDS SUMMARY | ~2019-09-30 | XMS | Encounter Summary ---
Demographics + + + | Address | [address] | | | [place] [address] | + + + | Home Phone [...] Providers + +------+ + | Care Supervisor Core Shop Name | Role | Phone | + +------+ + PCP | Unavailable | + +------+ + Encounter Details +--------+ + + + + | Date | Type | Department | Care Team | Description | +--------+ + + + + | 12/28/ | [facility] | Heike Rodriguez, | | | 2013 | Encounter | [facility] | DREDGE PIPE OPERATOR [address] | | | | | [address] | [place] | | | | | [place] | [address] | | | | | [address] | | | | | | [phone] | | | +--------+ + + + [...] [address] | | | | | | [phone] | | | | | | | | +--------+ + + + + | 10/30/ | Office | Primary Care | Erika Ernst, | | | 2019 | Visit | | DO [address] [place] | | | | | | [place] [address] | | | | | | [phone] | | | | | | | [...] [place] | | | | | | [address] | | | | | | [phone] | | | | | | | | +--------+ + + + + | 02/09/ | Office | Neurology | Dhara, | | | 2020 | Visit | | [address]WA[address] | | | | | | [address] [place], | | | | | | [place] [address] | | | | | | [phone] | | | | | | | | +--------+ + + + + documented as of this encounter Visit Diagnoses Not on filedocumented in this encounter"
--- OUTSIDE RECORDS SUMMARY | ~2019-09-30 | XMS | Encounter Summary ---
Demographics + + + | Address | [address] | | | [place] [address] | + + + | Home Phone [...] Team Providers + +------+ + | Care Merchant Police Name | Role | Phone | + +------+ + PCP | Unavailable | + +------+ + Encounter Details +--------+ + + + + | Date | Type | Department | Care Team | Description | +--------+ + + + + | 01/18/ | [facility] | [place] [facility] | Amaya Varner NP | | | 2017 | Encounter | [facility] | [address] | | | | | MEDICAL CLINIC [address] | [place], [place] | | | | | [address] [place], | [address] | | | | | [place] [address] | [phone] | | | | | [phone] | | | +--------+ + + + [...] | | | | | [place] [address] | | | | | | [phone] | | | | | | | | +--------+ + + + + | 10/30/ | Office | Primary Care | Erika Ernst, | | | 2019 | Visit | | DO [address] [place] | | | | | | [place] [address] | | | | | | [phone] | | | | | | | [...] [place] | | | | | | [address] | | | | | | [phone] | | | | | | | | +--------+ + + + + | 02/09/ | Office | Neurology | Dhara, | | | 2019 | Visit | | [address] | | | | | [address] [place], | | | | | | [place] [address] | | | | | | [phone] | | | | | | | | +--------+ + + + + documented as of this encounter Visit Diagnoses Not on filedocumented in this encounter"
--- OUTSIDE RECORDS SUMMARY | ~2019-09-30 | XMS | Encounter Summary ---
Demographics + + + | Address | [address] | | | [place] [address] | + + + | Home Phone [...] Team Providers + +------+ + | Care Indoor Sports Centre Manager Name | Role | Phone | [...] | | | [place], [place] | [address] | | | | | [address] | [phone] | | | | | [phone] | | | +--------+ + + + [...] | | | | | [place] [address] | | | | | | [phone] | | | | | | | | +--------+ + + + + | 10/30/ | Office | Primary Care | Erika Ernst, | | | 2019 | Visit | | DO [address] [place] | | | | | | [place] [address] | | | | | | [phone] | | | | | | | [...] [place] | | | | | | [address] | | | | | | [phone] | | | | | | | | +--------+ + + + + | 02/09/ | Office | Neurology | Dhara, | | | 2020 | Visit | | [address] | | | | | [address] [place], | | | | | | [place] [address] | | | | | | [phone] | | | | | | | | +--------+ + + + + documented as of this encounter Visit Diagnoses Not on filedocumented in this encounter"
--- OUTSIDE RECORDS SUMMARY | ~2019-09-30 | XMS | Encounter Summary ---
Demographics + + + | Address | [address] | | | [place] [address] | + + + | Home Phone [...] Providers + +------+ + | Care Fur Sorter Name | Role | Phone | + +------+ + | Erika Ernst DO | PCP | | + +------+ + Reason for Visit + + + | Reason | Comments | + + + | Shortness of Breath | | + + + Encounter Details +--------+ + + + + | Date | Type | Department | Care Team | Description | +--------+ + + + + | 09/09/ | Emergency | [facility] | Amparo Timmons | Swelling of throat | | 2019 | | [facility] | C, CYLINDER INSPECTOR [address] | (Primary Dx) | | | | CENTER [address] | [address] [place] | | | | | [place] | [address] | | | | | [address] | | | | | | [phone] | | | +--------+ + + + [...] + + + | Blood Pressure | 112/86 | 09/09/2019 1:46 PM | | | | | PST | | + + + + + | Pulse | 65 | 09/09/2019 1:46 PM | | | | | PST | | + + + + + | Temperature | 36.6 C (97.9 F) | 09/09/2019 1:03 PM | | | | | PST | | + + + + + | Respiratory Rate | 20 | 09/09/2019 1:03 PM | | | | | PST | | + + + + + | Oxygen Saturation | 100% | 09/09/2019 1:46 PM | | | | | PST | | + + + + + | Inhaled Oxygen | - | - | | | Concentration | | | | + + + + + | Weight | 169.6 kg (374 lb) | 09/09/2019 1:03 PM | | | | | PST | | + + + + + | Height | 177.8 cm (5' 10") | 09/09/2019 1:03 PM | | | | | PST | | + + + + + | Body Mass Index | 53.66 | 09/09/2019 1:03 PM | | | | | PST | | + + + + + documented in this encounter Discharge Instructions Instructions Amparo Timmons ARNP - 09/09/2019As discussed this directly with the radio logist and he does not suspect an obstruction as it was not present on the day of the biopsy . He agrees her likely just very sore but will try a round of steroids. documented in this encounter Medications at Time of Discharge + + + +---------+ + + | Medication | Sig | Dispensed | Refills | Start | End Date | | | | | | Date | | + + + +---------+ + + | albuterol 2.5 mg/3 | Inhale 1-2 | 60 vial | 0 | 08/13/ | | | mL nebulizer | treatments [...] | | | | | [place] [address] | | | | | | [phone] | | | | | | | | +--------+ + + + + | 10/30/ | Office | Primary Care | Erika Ernst, | | | 2019 | Visit | | DO [address] | | | | | | [place] [address] | | | | | | [phone] | | | | | | | [...] [place] | | | | | | [address] | | | | | | [phone] | | | | | | | | +--------+ + + + + | 02/09/ | Office | Neurology | Dhara, | | | 2019 | Visit | | DWAINE Ross [address] [place], | | | | | | [place] [address] | | | | | | [phone] | | | | | | | | +--------+ + + + + + +------+--------+ + + | Name | Type | Priori | Associated Diagnoses | Date/Time | | | | ty | | | + +------+--------+ + + | ED INFORMATION | YARITZA | Routin | | 09/09/2019 12:58 PM | | EXCHANGE | | e | | PST | + +------+--------+ + + documented as of this encounter Procedures + +--------+ + + + | Procedure Name | Priori | Date/Time | Associated Diagnosis | Comments | | | ty | | | | + +--------+ + + + | ED INFORMATION | Routin | 09/09/2019 | | | | EXCHANGE | e | 12:58 PM | | | | | | PST | | | + +--------+ + + + +---+--------+ | | | | | Proced | | | ure | | | Note - | | | Mitchel, | | | Lab In | | | | | | Hlseve | | | n - | | | 09/09/ | | | 2019 | | | 12:59 | | | PM PST | | [...] | | | FICATI | | | ON?12/ | | | | | | 9 | | | 12:54? | | | NOBLIT | | | , | | | ANDREA | | | C?MRN: | | | | | | [id number] | | | [id number] | | | riteri | | | a Met | | | 2 | | | [...] | | | (12 | | | Mo.)Un | | | able | | | to | | | determ | | | ine if | | | a | | | PDMP | | | report | | | | | | exists | | | | | | becaus | | | e no | | | respon | | | se was | | | | | | receiv | | | ed | | | from | | | PDMP.E | | | .D. | | | Visit | | | Count | | | (12 | | | mo.)Fa | | | cility | | | | | | Visits | | | St. | | | [facility] | | | josue | | | Medica | | | l | | | Center | | | -[place] | | | io 2 | | | [place] | | | [facility] | | | | | | Hospit | | | al 8 | | | Total | | | 10 | | | Note: | | | [...] | | | int | | | Dec 9, | | | 2019 | | | [place] | | | [place] | | [place] | | | [place] | | | [place] | | | Emerge | | | ncy | | | | | | diffic | | | ulty | | | breath | | | ing | | | Nov | | | 21, | | | 2019 | | | [place] | | | [place] | | | [place] | | | [place] | | | [place] | | | Emerge | | | ncy | | | | | | Nausea | | | , post | | | | | | migrai | | | ne | | | Nausea | | | | | | Vomiti | | | ng, | | | unspec | | | ified | | | | | | Acute | | | cystit | | | is | | | withou | | | t | | | hematu | | | dany | | | Nov | | | 14, | | | 2019 | | | St[facility] | | | [facility] | | | [facility]os[facility] | | | [facility] | | | ntario | | | | | | [place]. | | | [place] | | | Emerge | | | ncy | | | 0. | | | WRIST | | | PAIN | | | Sep | | | 12, | | | 2019 | | | [place] | | | [place] | | | [place] | | | [place] | | | [place] | | | Emerge | | | ncy | | | Hand | | | Injury | | | | | | Contus | | | ion of | | | right | | | hand, | | | | | | initia | | | l | | | encoun | | | ter | | | Aug 9, | | | 2019 | | | [place] | | | [place] | | | [place] | | | [place] | | | [place] | | | Emerge | | | ncy | | | left | | | ankle | | | and | | | right | | | wrist | | | pain | | | | | | Ankle | | | Injury | | | | | | Wrist | | | Injury | | | | | | Pain | | | in | | | right | | | wrist | | | | | | Pain | | | in | | | left | | | ankle | | | and | | | joints | | | of | | | left | | | foot | | | Ilia | | | 26, | | | 2019 | | | [place] | | | [place] | | | [place] | | | [place] | | | [place] | | | Emerge | | | ncy | | | Cast | | | came | | | off | | | Cast | | | Proble | | | m | | | Encoun | | | ter | | | for | | | other | | | orthop | | | edic | | | afterc | | | are | | | Ilia | | | 21, | | | 2019 | | | [place] | | | [place] | | | [place] | | | [place] | | | [place] | | | Emerge | | | ncy | | | | | | Shortn | | | ess of | | | | | | Breath | | | | | | Unspec | | | ified | | | asthma | | | , | | | uncomp | | | licate | | | d | | | Anxiet | | | y | | | disord | | | er, | | | unspec | | | ified | | | | | | Other | | | season | | | al | | | allerg | | | ic | | | rhinit | | | is | | | Ilia 7, | | | 2019 | | [...] | | | re | | | Recent | | | [...] | | | ovider | | | | | | Specia | | | lty | | | Phone | | | [...] | | Eloina | | | K MD, | | | MD | | | Family | | [...] | | | //secu | | | re.col | | | lectiv | | | emedic | | | al.com | | | /notif | | | [id number] | | | [id number] | | | [id number] | | | 0a-[id number] | | | 9-2023 | | | [id number] | | | a4 | | | PLEASE | | | [...] m | +---+--------+ documented in this encounter Visit Diagnoses + + | Diagnosis | + + | Swelling of throat - Primary Edema of pharynx or nasopharynx | + + documented in this encounter
--- OUTSIDE RECORDS SUMMARY | ~2019-09-30 | XMS | Encounter Summary ---
Demographics + + + | Address | [address] | | | [place] [address] | + + + | Home Phone [...] Providers + +------+ + | Care Research Laboratory Technician Name | Role | Phone | [...] | | | of left | [place] [address] | [place] [address] | | | | | ankle, | Phone: | Phone: | | | | | initial | [phone] | [phone] | | | | | encounter | Fax: | Fax: | | | | | Procedures | [phone] | [phone] | | | | | PT TREAT [...] [address] [place] | [place] [address] | encounter (Primary | | | | [place], [place] | [phone] | Dx); Fall on same | | | | [address] | | level from slipping, | | | | [phone] | Julia Castillo | subsequent | | [...] might be differen t from the original. [facility] THERAPY PT [address] [place] [address] Physical Therapy Daily Treatment Note Date: 10/09/2018 [...] | | | | | [place] [address] | | | | | | [phone] | | | | | | | | +--------+ + + + + | 10/30/ | Office | Primary Care | Erika Ernst, | | | 2019 | Visit | | DO [address] [place] | | | | | | [place] [address] | | | | | | [phone] | | | | | | | [...] [place] | | | | | | [address] | | | | | | [phone] | | | | | | | | +--------+ + + + + | 02/09/ | Office | Neurology | Dhara, | | | 2019 | Visit | | DWAINE Ross [address] | [address] [place], | | | | | | [place] [address] | | | | | | [phone] | | | | | | | | +--------+ + + + + documented as of this encounter Visit Diagnoses + + | Diagnosis | + + | Sprain of left ankle, subsequent encounter - Primary | + + | Fall on same level from slipping, subsequent encounter | + + documented in this encounter"
--- OUTSIDE RECORDS SUMMARY | ~2019-09-30 | XMS | Encounter Summary ---
Demographics + + + | Address | [address] | | | [place] [address] | + + + | Home Phone [...] Providers + +------+ + | Care Residential Insurance Inspector Name | Role | Phone | + +------+ + | Erika Ersnt DO | PCP | | + +------+ [...] | | | | s (de | [place], [place] | [place] [address] | | | | | quervain) | [address] | Phone: | | | | | Pain in | Phone: | [phone] | | | | | right wrist | [phone] | Fax: | | | | | Procedures | Fax: | [phone] | | | | | OT TREAT | [phone] | | +--------+--------+ + + + + [...] | | [address] [place] | [place] [address] | (Primary Dx); Right | | | | [place], [place] | [phone] | wrist pain | | | | [address] | | | | | | [phone] | Nakia Koo OT | | +--------+ [...] | 19 | 9 | | BRACE [id number]) | | | | | | | [...] Ordering Physician: Jeffrey Gandhi MD Claim #: [id number] Date of Injury: 07/20/2018 Visits since the [...] Deviation: 28 Strength at last Assessment eft Automated Weaver Strength L crime investigator special agent trial average: 54.33 lbs L Three Jaw payam average: 11.33 lbs L Lateral pinch trial average: 16.83 lbs Right crime investigator special agent Strength R crime investigator special agent trial average: 24.33 lbs R three jaw payam average: 8.33 lbs R lateral pinch trial average: 10.33 lbs Current Strength Strength: Left Hand Strength - Automated Weaver (lbs) L Automated Weaver Trial 1: 40 L Automated Weaver Trial 2: 46 L Automated Weaver Trial 3: 55 L Automated Weaver Trial Average: 47 L Three Jaw Payam Trial 1: 12 L Three Jaw Payam Trial 2: 13 L Three Jaw Payam Trial 3: 11 L Three Jaw Payam Trial Average: 12 L Lateral Pinch Trial 1: 17 L Lateral Pinch Trial 2: 17 L Lateral Pinch Trial 3: 18 L Lateral Pinch Trial Average: 17.33 Right Hand Strength - Automated Weaver (lbs) R Automated Weaver Trial 1: 20 R Automated Weaver Trial 2: 25 R Automated Weaver Trial 3: 32 R Automated Weaver Trial Average: 25.67 R Three Jaw Payam [...] 10/30/2018 Certification To: 01/22/2019 Treatment Plan/Interventions OT [id number] - Therapeutic Ezyhqtte10549 - Therapeutic Utzrjfbmjy30825 - Self Care/Ho me Xihxgwlgjg67380 - Manual Cydpcum60390 - Orthotic/Prosthetic Igjlzvfu88418 - Veinnilpwa160 34 - Contrast Vuim54816 - Paraffin BathSplinting Moist heat, cold therapy [...] wrist but continues to have right wrist, crime investigator special agent and pinch weakness and significant pain (3 [...] in 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, and crime investigator special agent and pinch weakness in the right [...] Padgett OT - 10/30/2018 4:56 PM PST THERAPY OT [address] [place] [address] Occupational Therapy Progress Assessment Date: 10/30/2018 Patient [...] jar: 4 - Severe Difficulty Do heavy technical intern: 4 - Severe Difficulty Carry a shopping [...] Deviation: 28 Strength: Left Hand Strength - Automated Weaver (lbs) L Automated Weaver Trial 1: 40 L Automated Weaver Trial 2: 46 L Automated Weaver Trial 3: 55 L Automated Weaver Trial Average: 47 L Three Jaw Payam Trial 1: 12 L Three Jaw Payam Trial 2: 13 L Three Jaw Payam Trial 3: 11 L Three Jaw Payam Trial Average: 12 L Lateral Pinch Trial 1: 17 L Lateral Pinch Trial 2: 17 L Lateral Pinch Trial 3: 18 L Lateral Pinch Trial Average: 17.33 Right Hand Strength - Automated Weaver (lbs) R Automated Weaver Trial 1: 20 R Automated Weaver Trial 2: 25 R Automated Weaver Trial 3: 32 R Automated Weaver Trial Average: 25.67 R Three Jaw Payam [...] wrist but continues to have right wrist, crime investigator special agent and pinch weakness and significant pain (3 [...] in 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, and crime investigator special agent and pinch weakness in the right [...] Goal 2: The pt will have right crime investigator special agent strength of 50 lbs by discharge Goal 2 Status: PARTIALLY MET - Right crime investigator special agent has increased from 20 to 26 lbs since evaluaiton. Left crime investigator special agent is 47 lbs Goal 3: The pt will have increased right pinch strength to 13 lbs by discharge Goal 3 Status: PARTIALLY MET - right pinch is 9 lbs, left is 15 lbs Goal 4: The pt will be independent and compliant with HEP Goal 4 Status: ONGOING - pt reports daily compliance with HEP which includes wrist, crime investigator special agent an d pinch strengthening as well as general UE strengthening Plan Date of Onset: 07/20/2018 Start of Care Date: 08/07/2018 Requested # of Visits: 24 visits 2x/week for 12 weeks Certification From: 10/30/2018 Certification To: 01/22/2019 Treatment Plan/Interventions OT [id number] - Therapeutic Ltonjjzo73391 - Therapeutic Frsqsuwvmp97581 - Self Care/Ho me Kwnepwqqkm45212 - Manual Hvpntuv37397 - Orthotic/Prosthetic Dalxriwb61529 - Pyrztxbjoy991 34 - Contrast Wsgz97466 - Paraffin BathSplinting Moist heat, cold therapy [...] | | | | | [place] [address] | | | | | | [phone] | | | | | | | | +--------+ + + + + | 10/30/ | Office | Primary Care | Erika Ernst, | | | 2019 | Visit | | DO [address] | | | | | | [place] [address] | | | | | | [phone] | | | | | | | [...] [place] | | | | | | [address] | | | | | | [phone] | | | | | | | | +--------+ + + + + | 02/09/ | Office | Neurology | Dhara, | | | 2019 | Visit | | DWA[address] Ross [address] [place], | | | | | | [place] [address] | | | | | | [phone] | | | | | | | | +--------+ + + + + documented as of this encounter Visit Diagnoses + + | Diagnosis | + + | Radial styloid tenosynovitis - Primary | + + | Right wrist pain Pain in joint, forearm | + + documented in this encounter
--- OUTSIDE RECORDS SUMMARY | ~2019-09-30 | XMS | Encounter Summary ---
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 You may use cbcs-syp-lkkvmsz decongestants such as phenylephrine or pseudoephedrine. But [...] Unusual drowsiness or confusion Date Last Reviewed: 07/02/201619998855-1639 [employer]. [address] [place] [address]. All righ ts reserved. This information is [...] sudafed daily prescribed by Dr. Pruett in [place] (area secretary/asthma specialist) Chronic ear pain from TMJ; unsure [...] BID 60 tablet 3 Cholecalciferol (VITAMIN D3) 38612 units TABS Take 1 tablet by mouth [...] as planned. Electronically signed by: ANUP [email or web address] [facility] Note: Part of this report was transcribed using voice recognition software. Every effort wa s made to ensure accuracy. However, inadvertent computerized telecommunications analyst errors may be pre sent. docuwilliam rubin [...] | | | | | [place] [address] | | | | | | [phone] | | | | | | | | +--------+ + + + + | 10/30/ | Office | Primary Care | Erika Ernst, | | | 2019 | Visit | | DO [address] | | | | | | [place] [address] | | | | | | [phone] | | | | | | | [...] [place] | | | | | | [address] | | | | | | [phone] | | | | | | | | +--------+ + + + + | 02/09/ | Office | Neurology | Dhara, | | | 2019 | Visit | | DWAINE Ross [address] | | [address] [place], | | | | | | [place] [address] | | | | | | [phone] | | | | | | | | +--------+ + + + + documented as of this encounter Visit Diagnoses + + | Diagnosis | + + | Otalgia of both ears - Primary Otalgia, unspecified | + + | Acute recurrent pansinusitis Other acute sinusitis | + + documented in this encounter
--- OUTSIDE RECORDS SUMMARY | ~2019-09-30 | XMS | Encounter Summary ---
Demographics + + + | Address | [address] | | | [place] [address] | + + + | Home Phone [...] Providers + +------+ + | Care Transportation Aide Name | Role | Phone | [...] | | | | | | | AK REPR | | | | | | | FOREARM | | | | | | | TEND/MUSC,EX | | | | | | | TEN,PRIM,EA | | | | | | | AK REPR | | | | | | | FOREARM | | | | | | | TEND/MUSC,EX | | | | | | | TEN,SECOND | | | | | | | AK REPR | | | | | | | FOREARM | | | | | | | TEND/EXT,SEC | | | | | | | OND,GRAFT,EA | | | | | | | REPAIR | | | | | | | E.C.U. | | | | | | | Tendon | | | +--------+--------+ + + + + Encounter Details +--------+---------+ + + + | Date | Type | Department | Care Team | Description | +--------+---------+ + + + | 03/20/ | Surgery | [facility] | [facility] | REPAIR [facility] 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 Be sure to mention t hat you've had surgery recently. AttachmentsThe following attachments cannot be sent through Care Everywhere.After Your Surg matt: Discharge Instructions (Dominican)documented in this encounter Medications at Time of [...] | 02/29/20 | | | (VITAMIN D3) [address] | mouth Once a week | tablet [...] one tablet | 2 | 0 | 05/08/20 | | | (ROBAXIN) 500 mg | [...] | | | | | [place] [address] | | | | | | [phone] | | | | | | | | +--------+ + + + + | 10/30/ | Office | Primary Care | Erika Ernst, | | | 2019 | Visit | | DO [address] [place] | | | | | | [place] [address] | | | | | | [phone] | | | | | | | [...] [place] | | | | | | [address] | | | | | | [phone] | | | | | | | | +--------+ + + + + | 02/09/ | Office | Neurology | Dhara, | | | 2019 | Visit | | [address]WA[address] Ross [address] | [address] [place], | | | | | | [place] [address] | | | | | | [phone] | | | | | | | [...] + + | [facility] | [address] | [place] [address] | [phone] | | [facility] | | | | + + + + + documented in this encounter Visit Diagnoses + + | Diagnosis | + + | Extensor tenosynovitis of right wrist | + + documented in this encounter Administered Medications + +--------+---------+------+------+------+ | Medication Order | MAR | Action | Dose | Rate | Site | | | Action | Date | | | | + +--------+---------+------+------+------+ + +---+ | albuterol 2.5 mg/3 mL nebulizer | | | solution 2.5 mg 2.5 mg, | | | Nebulization, ONCE PRN, Wheezing, | | | Starting 03/20/19 at 1022, | | | For 1 dose, Notify anesthesia if | | | patient is wheezing and does not | | | have a history of asthma or COPD | | | or current smoking., | | | Recovery/Phase I | | + +---+ | | | + +---+ + +-------+ +--------+---+ + | bupivacaine (PF) (MARCAINE) | Given | 03/20/20 | 10 mLs | | Surgical | | 0.5% injection PRN, Starting Mon | | 10:30 | | | Site | | 03/20/19 at 1030, Intra-op | | AM PDT | | | | + +-------+ +--------+---+ + + +---+ | | | + +---+ [...]
--- OUTSIDE RECORDS SUMMARY | ~2019-09-30 | XMS | Encounter Summary ---
Demographics + + + | Address | [address] | | | [place] [address] | + + + | Home Phone [...] Team Providers + +------+ + | Care Sanitarian Inspector Name | Role | Phone | [...] | [facility] | [place] [address] | Chronic pain of both | | | | [address] [place], | [phone] | ears; Chronic | | | | [place] [address] | | congestion of | | | | [phone] | | paranasal sinus; | | | [...] | | | | | [place] [address] | | | | | | [phone] | | | | | | | | +--------+ + + + + | 10/30/ | Office | Primary Care | Erika Ernst, | | | 2019 | Visit | | DO [address] [place] | | | | | | [place] [address] | | | | | | [phone] | | | | | | | [...] [place] | | | | | | [address] | | | | | | [phone] | | | | | | | | +--------+ + + + + | 02/09/ | Office | Neurology | Dhara, | | | 2020 | Visit | | DWAINE Ross [address] [place], | | | | | | [place] [address] | | | | | | [phone] | | | | | | | [...]
--- OUTSIDE RECORDS SUMMARY | ~2019-09-30 | XMS | Encounter Summary ---
Demographics + + + | Address | [address] | | | [place] [address] | + + + | Home Phone [...] Team Providers + +------+ + | Care Maternal Child Nurse Name | Role | Phone | + +------+ + | Erika Ernst DO | PCP | | + +------+ + Reason for Visit + + + | Reason | Comments | + + + | Post-op Exam | 1 wk PO right ECU tendon repair. DOS: 03/20/19 | + + + Encounter Details +--------+---------+ + + + | Date | Type | Department | Care Team | Description | +--------+---------+ + + + | 03/26/ | Office | [facility] [facility] | Travis Malone FNP | S/P right [facility] | | 2019 | Visit | HOSPITAL [facility] | [address] | tenosynovectomy on | | | | [address] [place] [address] | [place], [place] | 03/20/19 | | | | [place], [place] | [address] | | | | | [address] | [phone] | | | | | [phone] | | | +--------+---------+ + + + [...] + + + | Blood Pressure | 124/75 | 03/26/2019 10:25 AM | | | | | PDT | | + + + + + | Pulse | 86 | 03/26/2019 10:25 AM | | | | | PDT | | + + + + + | Temperature | 36.4 C (97.5 F) | 03/26/2019 10:25 AM | | | | | PDT | | + + + + + | Respiratory Rate | 20 | 03/26/2019 10:25 AM | | | | | PDT | | + + + + + | Oxygen Saturation | 100% | 03/26/2019 10:25 AM | | | | | PDT [...] in this encounter Patient Instructions Patient Instructions Travis Malone FNP - 03/26/2019 10:40 AM PDT First Post-operative visit Instructions Wound -- The purpose of the first post-operative visit is to check the wound for any infection or drainage. Serous (clear fluid) or serosanguinous (clear bloody) drainage on the dressing is completely normal after the surgery. -- It is common for procedures to have significant bruising or swelling. This is normal. The bruising can commonly travel away from the surgery site (as the small droplet of blood t ravels up the flexor tendons in the forearm). -- Suture is a foreign body for your hand and occasionally you can have some redness around the wound. That will improve once we take out or trim the sutures at 10-14 days postop. -- If the redness (erythema) keeps worsening or if it is accompanied with fevers, chills an d drainage then call the office for further advice. --Occupational therapy will be calling you to set up an appointment fairly quickly for a th ermally moldable splint fitting so that you don't have to wear your plaster splint anymore. They will also set up appointments to begin rehabilitation with you once you come out of th e splint in approximately 4 weeks postop. Dressing -- On today's visit the bulky dressing will be changed for a smaller less constrictive dres sing and your splint will be reapplied. Your splint MUST remain on until Dr Noriega advances y ou out of splint use. This is extremely important. --Until your next visit, keep the wound covered and dry. -- Prevent it from getting wet during bathing/showering by covering was splinted extremity with a plastic bag. Numbness after surgery -- We will continue to monitor the numbness at each post-operative visit for improvement. Pain medication -- For most soft tissue procedures you should not require any strong pain medication by you r first post-operative visit. Any occasional aches or discomfort at the surgery site should be manageable with over the counter pain medications such as tylenol or ibuprofen. If you are experiencing unmanageable pain please call the office for further advice. Exercises. -- The most important exercise to work on prior to occupational therapy initiation week for postop, is being able to flex and extend the fingers. The thumb must remain in the splint Driving -- To drive you must no longer be taking narcotic pain pills (plain Tylenol is allowed). Al so, the operative hand must feel strong enough to manage driving and you really should be ou t of your splint or you could be found liable if an accident results. Follow-up -- Please make sure to schedule your second post-operative visit today (10-14 days from the surgery). At your next visit the sutures will be removed. When to Call If you have severe or increased pain not relieved by medication. If you have any side effects to medications; such as, rash, nausea, headache, vomiting. If you have an oral temperature over 101 degrees. If you have any yellowish or [...] number, which will transfer you to the [facility] service at the hospital and ask for the executive receptionist orthopedic provider. Be sure to mention t hat you've had surgery recently. documented in this encounter Progress Notes Travis Malone FNP - 03/26/2019 10:40 AM PDT Orthopedic Postoperative Note Patient Name: Andrea Suh | Age: 28 y.o. | : 1990 | Medical Record Number:[id number] | Author: MOHSEN Martinez | Date of Encounter: 03/26/2019 Surgeon: Inocencio Noriega MD History of present illness Andrea Suh is a 28 y.o. female that follows up in the office 1 week status post [facility] ECU tendon tenosynovectomy reporting no significant concerns today other than the fact t hat she has been running what she calls a low-grade fever below 101 intermittently for the last several days. The patient does suffer from severe asthma and is currently taking a pr ednisone taper. I told her if her fever spikes and is sustained for several hours, that she should contact our office for instructions. Yesterday she modified her plaster splint gertrude use the proximal end that was going around her elbow got wet. She reported this complicatio n and was told to follow up with us today as originally scheduled. She reports that she has not been moving her hand or forearm and has been very protective of it since the splint got wet. The patient reports: Pain Level: 7 / 10- the patient is currently taking tramadol and ibuprofen as well as icin g Improvement in symptoms: Hard for her to say at this point because she remains in her splin t Numbness: None Fevers or chills: None Drainage: None Physical examination Vitals: 03/26/19 1025 BP: 124/75 Pulse: 86 Resp: 20 Temp: 36.4 C (97.5 F) PainSc: 7 PainLoc: Hand Right upper extremity: On today's examination there is: Ecchymosis: None Swelling: Minimal-resolving routinely Erythema: None-wound is uncomplicated appearing, clean dry and intact at this time Drainage: None The patient can initiate movement in all vectors Fingers are warm and perfused: Yes Assessment Andrea was seen today for post-op exam. Diagnoses and all orders for this visit: S/P right ECU tenosynovectomy on 03/20/19 Plan 1. New dressing and sugar tong fiberglass splint applied to the patient by me with wound c heck today. 2. Post-op instructions given to patient. Follow-Up Return in about 1 week (around 04/02/2019) for 2wk PO R ECU TS release Follow up w/ Dr Noriega. Past Medical History: Diagnosis Date Allergic rhinitis Anemia Asthma Dysmenorrhea Hypertension Hypothyroid Iron deficiency Obesity ALVAREZ (obstructive sleep apnea) Periodontal disease, unspecified TMJ pain dysfunction syndrome Past Surgical History: Procedure Laterality Date EYE SURGERY HAND TENDON SURGERY Right 03/20/2019 Procedure: REPAIR E.C.U. Tendon; Surgeon: Inocencio Noriega MD; Location: [facility] SURGERY RIGHT KIDNER PROCEDURE 01/20/2016 Surgeon: Fani Mahajan MD; Location: [facility] TENDON RELEASE TONSILLECTOMY WISDOM TOOTH EXTRACTION Family [...] and their vital signs recorded by my clinical research assistant today, a s found in this chart note. Electronically signed by: MOHSEN Martinez 03/26/2019 at 10:55 Note: Part of this report was transcribed using voice recognition software. Every effort wa s made to ensure accuracy. However, inadvertent computerized loom cleaner errors may be pre sent. CC: Erika [...] | | | | | [place] [address] | | | | | | [phone] | | | | | | | | +--------+ + + + + | 10/30/ | Office | Primary Care | Erika Ernst, | | | 2019 | Visit | | DO [address] [place] [address] | | | | | | [place] [address] | | | | | | [phone] | | | | | | | [...] [place] | | | | | | [address] | | | | | | [phone] | | | | | | | | +--------+ + + + + | 02/09/ | Office | Neurology | Dhara, | | | 2019 | Visit | | [address] | | | | | | [address]TH [facility], | | | | | | [place] [address] | | | | | | [phone] | | | | | | | | +--------+ + + + + documented as of this encounter Visit Diagnoses + + | Diagnosis | + + | S/P right ECU tenosynovectomy on 03/20/19 | + + documented in this encounter"
--- OUTSIDE RECORDS SUMMARY | ~2019-09-30 | XMS | Encounter Summary ---
Demographics + + + | Address | [address] | | | [place] [address] | + + + | Home Phone [...] Team Providers + +------+ + | Care Ventilation Worker Name | Role | Phone | [...] | [address] [place], [place] | [place] [address] | | | | | [address] | [phone] | | | | | [phone] | | | +--------+ + + + [...] | | | | | [place] [address] | | | | | | [phone] | | | | | | | | +--------+ + + + + | 10/30/ | Office | Primary Care | Erika Ernst, | | | 2019 | Visit | | DO [address] [place] | | | | | | [place] [address] | | | | | | [phone] | | | | | | | [...] [place] | | | | | | [address] | | | | | | [phone] | | | | | | | | +--------+ + + + + | 02/09/ | Office | Neurology | Dhara, | | | 2019 | Visit | | Cody BI ANALYST [address] | | | | | | [address]TH [facility], | | | | | | [place] [address] | | | | | | [phone] | | | | | | | [...] - 1.030 | EXTERNAL | | | [place], | | | LAB | | | [...]
--- OUTSIDE RECORDS SUMMARY | ~2019-09-30 | XMS | Encounter Summary ---
Demographics + + + | Address | [address] | | | [place] [address] | + + + | Home Phone [...] Providers + +------+ + | Care Store Operations Specialist Name | Role | Phone | [...] | | | [place] | [address] | extremity (Primary | | | | [address] | | Dx); Sprain of | | | | [phone] | | deltoid ligament of | | [...] | : 1990 | Medical Record Number:[id number] | Author: Emily Mittal DPM | Date [...] brace. Patient is scheduled to see a [facility] physician in [place] for her wrist and ankle. Allergies Latex; [...] E.C.U. Tendon; Surgeon: Inocencio Noriega MD; Location: [facility] SURGERY RIGHT KIDNER PROCEDURE 01/20/2016 Surgeon: Fani Mahajan MD; Location: [facility] TENDON RELEASE TONSILLECTOMY WISDOM TOOTH EXTRACTION Family History Problem Relation Age of Onset Other (see comment) Mother gallbladder disease Hypertension Father Other (see comment) Father arrhymthmia Breast cancer Sister Cervical cancer Maternal Grandmother Heart attack Maternal Aunt [place] Social History Socioeconomic History Marital status: Single [...] and their vital signs recorded by my offset press assistant today, a s found in this chart note. Electronically signed by: Emily Mittal DPM 12/06/2018 at 9:10 Note: Part of this report was transcribed using voice recognition software. Every effort wa s made to ensure accuracy. However, inadvertent computerized regional liaison errors may be pre sent. CC: Erika [...] | | | | | [place] [address] | | | | | | [phone] | | | | | | | | +--------+ + + + + | 10/30/ | Office | Primary Care | Erika Ernst, | | | 2019 | Visit | | DO [address] [place] | | | | | | [place] [address] | | | | | | [phone] | | | | | | | [...] [place] | | | | | | [address] | | | | | | [phone] | | | | | | | | +--------+ + + + + | 02/09/ | Office | Neurology | Dhara, | | | 2019 | Visit | | [address] | | | | | [address] [place], | | | | | | [place] [address] | | | | | | [phone] | | | | | | | [...]
--- OUTSIDE RECORDS SUMMARY | ~2019-09-30 | XMS | Encounter Summary ---
Demographics + + + | Address | [address] | | | [place] [address] | + + + | Home Phone [...] Providers + +------+ + | Care Tire And Tube Repairer Name | Role | Phone | [...] Essential | | 2019 | Visit | [facility] | DO [address] [place] | hypertension | | | | MEDICAL CLINIC [address] | [place] [address] | (Primary Dx); | | | | [address] [place], | [phone] | Vitamin D | | | | [place] [address] | | deficiency; | | | | [phone] | | Screening for | | | [...] | | | | | [place] [address] | | | | | | [phone] | | | | | | | | +--------+ + + + + | 10/30/ | Office | Primary Care | Erika Ernst, | | | 2019 | Visit | | DO [address] [place] | | | | | | [place] [address] | | | | | | [phone] | | | | | | | [...] [place] | | | | | | [address] | | | | | | [phone] | | | | | | | | +--------+ + + + + | 02/09/ | Office | Neurology | Dhara, | | | 2019 | Visit | | [address] | | | | | | [address]TH [facility] [place], | | | | | | [place] [address] | | | | | | [phone] | | | | | | | [...] + + | [facility] [facility] | [address] | [place] [address] | [phone] | | HOSPITAL LAB[facility]ORY | | | [...] + + | [facility] [facility] | [address] | [place] [address] | [phone] | | HOSPITAL LABORATORY | | | [...] | mL/min/1.73m2 | [facility] | | | GABONESE | RATE,ESTIMATED | | HOSPITAL | | | | mL/min/1.29s9Tnnj than | | LABORATORY | | | [...] + + | [facility] [facility] | [address] | [place] [address] | [phone] | | HOSPITAL LABORATORY | | | [...]
--- OUTSIDE RECORDS SUMMARY | ~2019-09-30 | XMS | Encounter Summary ---
Demographics + + + | Address | [address] | | | [place] [address] | + + + | Home Phone [...] Team Providers + +------+ + | Care Iron Guardrail Installer Name | Role | Phone | [...] | MEDICAL [facility] [address] | [place] [address] | | | | | [address] [place], | [phone] | | | | | [place] [address] | | | | | | [phone] | | | +--------+ + + + [...] | | | | | [place] [address] | | | | | | [phone] | | | | | | | | +--------+ + + + + | 10/30/ | Office | Primary Care | Erika Ernst, | | | 2019 | Visit | | DO [address] [place] | | | | | | [place] [address] | | | | | | [phone] | | | | | | | [...] [place] | | | | | | [address] | | | | | | [phone] | | | | | | | | +--------+ + + + + | 02/09/ | Office | Neurology | Dhara, | | | 2020 | Visit | | [address] | | | | | | [address] [place], | | | | | | [place] [address] | | | | | | [phone] | | | | | | | | +--------+ + + + + documented as of this encounter Visit Diagnoses Not on filedocumented in this encounter"
--- OUTSIDE RECORDS SUMMARY | ~2019-09-30 | XMS | Encounter Summary ---
Demographics + + + | Address | [address] | | | [place] [address] | + + + | Home Phone [...] Team Providers + +------+ + | Care Programs Manager Name | Role | Phone | + +------+ + PCP | Unavailable | + +------+ + Encounter Details +--------+ + + + + | Date | Type | Department | Care Team | Description | +--------+ + + + + | 12/23/ | Hospital | [facility] | Heather Yip, | | | 2016 | Encounter | HOSPITAL NURSERY | METAPHYSICIAN [address] [place] | | | | | [address] [place] | [place] [address] | | | | | [place], [place] | [phone] | | | | | [address] | | | | | | [phone] | | | +--------+ + + + [...] | | | | | [place] [address] | | | | | | [phone] | | | | | | | | +--------+ + + + + | 10/30/ | Office | Primary Care | Erika Ernst, | | | 2019 | Visit | | DO [address] [place] | | | | | | [place] [address] | | | | | | [phone] | | | | | | | [...] [place] | | | | | | [address] | | | | | | [phone] | | | | | | | | +--------+ + + + + | 02/09/ | Office | Neurology | Dhara, | | | 2020 | Visit | | [address] | | | | | | [address] [place], | | | | | | [place] [address] | | | | | | [phone] | | | | | | | | +--------+ + + + + documented as of this encounter Visit Diagnoses Not on filedocumented in this encounter"
--- OUTSIDE RECORDS SUMMARY | ~2019-09-30 | XMS | Encounter Summary ---
Demographics + + + | Address | [address] | | | [place] [address] | + + + | Home Phone [...] Team Providers + +------+ + | Care Meat Blender Name | Role | Phone | + [...] | [facility]ICAL [facility] [address] | [place] [address] | | | | | [address] [place], | [phone] | | | | | [place] [address] | | | | | | [phone] | | | +--------+ + + + [...] | | | | | [place] [address] | | | | | | [phone] | | | | | | | | +--------+ + + + + | 10/30/ | Office | Primary Care | Erika Ernst, | | | 2019 | Visit | | DO [address] [place] | | | | | | [place] [address] | | | | | | [phone] | | | | | | | [...] [place] | | | | | | [address] | | | | | | [phone] | | | | | | | | +--------+ + + + + | 02/09/ | Office | Neurology | Dhara, | | | 2020 | Visit | | [address] | | | | | | [address] [place], | | | | | | [place] [address] | | | | | | [phone] | | | | | | | | +--------+ + + + + documented as of this encounter Visit Diagnoses Not on filedocumented in this encounter"
--- OUTSIDE RECORDS SUMMARY | ~2019-09-30 | XMS | Encounter Summary ---
Demographics + + + | Address | [address] | | | [place] [address] | + + + | Home Phone [...] Providers + +------+ + | Care Computer Systems Architect Name | Role | Phone | [...] CLINIC [address] | [place] [address] | | | | | [address] [place], | [phone] | | | | | [place] [address] | | | | | | [phone] | | | +--------+ + + + [...] | | | | | [place] [address] | | | | | | [phone] | | | | | | | | +--------+ + + + + | 10/30/ | Office | Primary Care | Erika Ernst, | | | 2019 | Visit | | DO [address] [place] | | | | | | [place] [address] | | | | | | [phone] | | | | | | | [...] [place] | | | | | | [address] | | | | | | [phone] | | | | | | | | +--------+ + + + + | 02/09/ | Office | Neurology | Dhara, | | | 2020 | Visit | | [address] | | | | | | [address] [place], | | | | | | [place] [address] | | | | | | [phone] | | | | | | | | +--------+ + + + + documented as of this encounter Visit Diagnoses Not on filedocumented in this encounter"
--- OUTSIDE RECORDS SUMMARY | ~2019-09-30 | XMS | Encounter Summary ---
Demographics + + + | Address | [address] | | | [place] [address] | + + + | Home Phone [...] Providers + +------+ + | Care Icu Nurse Name | Role | Phone | + +------+ + PCP | Unavailable | + +------+ + Encounter Details +--------+ + + + + | Date | Type | Department | Care Team | Description | +--------+ + + + + | 06/18/ | Hospital | [place] [facility] | Heather Yip, | | | 2016 | Encounter | HOSPITAL NURSERY | SCIENTIFIC SPECIALIST [address] [place] | | | | | [address] [place] | [place] [address] | | | | | [place], [place] | [phone] | | | | | [address] | | | | | | [phone] | | | +--------+ + + + [...] | | | | | [place] [address] | | | | | | [phone] | | | | | | | | +--------+ + + + + | 10/30/ | Office | Primary Care | Erika Ernst, | | | 2019 | Visit | | DO [address] [place] | | | | | | [place] [address] | | | | | | [phone] | | | | | | | [...] [place] | | | | | | [address] | | | | | | [phone] | | | | | | | | +--------+ + + + + | 02/09/ | Office | Neurology | Dhara, | | | 2019 | Visit | | [address] | | | | | | [address] [place], | | | | | | [place] [address] | | | | | | [phone] | | | | | | | | +--------+ + + + + documented as of this encounter Visit Diagnoses Not on filedocumented in this encounter"
--- OUTSIDE RECORDS SUMMARY | ~2019-09-30 | XMS | Encounter Summary ---
Demographics + + + | Address | [address] | | | [place] [address] | + + + | Home Phone [...] Team Providers + +------+ + | Care Museum Exhibit Designer Name | Role | Phone | + +------+ + PCP | Unavailable | + +------+ + Encounter Details +--------+ + + + + | Date | Type | Department | Care Team | Description | +--------+ + + + + | 05/08/ | [facility] | Spenser Roberts NP | | | 2014 | Encounter | [facility] | [address], | | | | | MEDICAL CL[facility] [address] | [place] [address] | | | | | [address]TH [facility], | [phone] | | | | | [place] [address] | | | | | | [phone] | | | +--------+ + + + [...] | | | | | [place] [address] | | | | | | [phone] | | | | | | | | +--------+ + + + + | 10/30/ | Office | Primary Care | Erika Ernst, | | | 2019 | Visit | | DO [address] [place] | | | | | | [place] [address] | | | | | | [phone] | | | | | | | | +--------+ + + + + | 11/07/ | Appointment | Nutrition | Janel Webster | | | 2019 | | | [place] | | +--------+ + + + + | 11/28/ | Office | Otolaryngology | Anthoyn Alvarado MD | | 2019 | Visit | | [address] | | | | | | [place], [place] | | | | | | [address] | | | | | | [phone] | | | | | | | | +--------+ + + + + | 02/09/ | Office | Neurology | Dhara, | | | 2020 | Visit | | [address] | | | | | | [address] [place], | | | | | | [place] [address] | | | | | | [phone] | | | | | | | | +--------+ + + + + documented as of this encounter Visit Diagnoses Not on filedocumented in this encounter"
--- OUTSIDE RECORDS SUMMARY | ~2019-09-30 | XMS | Encounter Summary ---
Demographics + + + | Address | [address] | | | [place] [address] | + + + | Home Phone [...] Team Providers + +------+ + | Care Loaf Counter Name | Role | Phone | + [...] | | | 2019 | Support | [facility] | DWAINE Rob | | | | | [facility] [address] | [address] [facility] [place] | | | | | [address] [facility], | [place] [address] | | | | | [place] [address] | [phone] | | | | | [phone] | | | +--------+ + + + [...] this encounter Progress Notes Eliu Miller CC MENU PLANNER - 09/07/2019 3:20 PM Mami King Earlenenanci is a 29 y.o. fema le who presents for f/u on bruise and pain at site of recent thyroid biopsy. Biopsy completed on 09-02-19 then f/u w/SYSTEMS ENGINEER Carlos [place] on 09-04-19. Pt stated that during he r appt w/SYSTEMS ENGINEER she was advised to rtn to clinic in "a couple days" if the pain does not subside . Pt's bruise was at the end of its progression and only a slightly yellowish area remained, pt also stated that the pain has gotten better since her last visit and she has be completi ng all recommendations for tx by SYSTEMS ENGINEER. Pt declined any other/new sx. I consulted [...] | 2018 | Visit | | [address] ST | | | | | | [place] [address] | | | | | | [phone] | | | | | | | | +--------+ + + + + | 10/30/ | Office | Primary Care | Erika Ernst, | | | 2019 | Visit | | DO [address] | | | | | | [place] [address] | | | | | | [phone] | | | | | | | [...] [place] | | | | | | [address] | | | | | | [phone] | | | | | | | | +--------+ + + + + | 02/09/ | Office | Neurology | Dhara, | | | 2019 | Visit | | [address] | | | | | | [address] [place], | | | | | | [place] [address] | | | | | | [phone] | | | | | | | | +--------+ + + + + documented as of this encounter Visit Diagnoses Not on filedocumented in this encounter
--- OUTSIDE RECORDS SUMMARY | ~2019-09-30 | XMS | Encounter Summary ---
Demographics + + + | Address | [address] | | | [place] [address] | + + + | Home Phone [...] Team Providers + +------+ + | Care Restaurant Management Internship Name | Role | Phone | + [...] ibular joint | [place], | Jitendra Yale | | | | | disorder) | [place] [address] | [address] [place], | | | | | | Phone: | [place] | | | | | | [phone] | [address] | | | | | | Fax: | Phone: | | | | | | [phone] | [phone] | | | | | | | Fax: | | | | | | | [phone] | + + + + + + [...] TMJ | | 2019 | Visit | [facility] | DO [address] | (temporomandibular | | | | MEDICAL CLINIC [address] | [place] [address] | joint disorder) | | | | [address] [facility], | [phone] | (Primary Dx); | | | | [place] [address] | | 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 She has appointment with window decorator Jun 23 for her asthma. No increased [...] [facility] tenosynovectomy on 03/20/19 Plan: Referral to [facility] oral surgeon. Xray right ankle and continue ice and elevation as needed. Elaine veras OTC 10-15 mg at HS prn sleep. She will continue plans for OTC for wrist. Keep puldc nology appointment Jun 23. documented in this en counter Plan of Treatment +--------+ + + + + | Date | Type | Specialty | Care Team | Description | +--------+ + + + + | 10/01/ | Office | Primary Care | Erika Ernst, | | | 2018 | Visit | | DO [address] | | | | | | [facility] [address] | | | | | | [phone] | | | | | | | | +--------+ + + + + | 10/30/ | Office | Primary Care | Erika Ernst, | | | 2019 | Visit | | DO [address] | | | | | | [place] [address] | | | | | | [phone] | | | | | | | [...] [place] | | | | | | [address] | | | | | | [phone] | | | | | | | | +--------+ + + + + | 02/09/ | Office | Neurology | Dhara, | | | 2019 | Visit | | [address] | | | | | [address] [place], | | | | | | [place] [address] | | | | | | [phone] | | | | | | | [...]
--- OUTSIDE RECORDS SUMMARY | ~2019-09-30 | XMS | Encounter Summary ---
Demographics + + + | Address | [address] | | | [place] [address] | + + + | Home Phone [...] Team Providers + +------+ + | Care Syrup Mixer Name | Role | Phone | + +------+ + PCP | Unavailable | + +------+ + Encounter Details +--------+ + + + + | Date | Type | Department | Care Team | Description | +--------+ + + + + | 05/19/ | [facility] | [facility] | Amaya Varner NP | | | 2016 | Encounter | [facility] | [address] | | | | | MEDICAL CLINIC [address] | [place], [place] | | | | | [address] [place], | [address] | | | | | [place] [address] | [phone] | | | | | [phone] | | | +--------+ + + + [...] | | | | | [place] [address] | | | | | | [phone] | | | | | | | | +--------+ + + + + | 10/30/ | Office | Primary Care | Erika Ernst, | | | 2019 | Visit | | DO [address] | | | | | | [place] [address] | | | | | | [phone] | | | | | | | [...] [place] | | | | | | [address] | | | | | | [phone] | | | | | | | | +--------+ + + + + | 02/09/ | Office | Neurology | Dhaar, | | | 2019 | Visit | | [address] | | | | | [address] [place], | | | | | | [place] [address] | | | | | | [phone] | | | | | | | | +--------+ + + + + documented as of this encounter Visit Diagnoses Not on filedocumented in this encounter"
--- OUTSIDE RECORDS SUMMARY | ~2019-09-30 | XMS | Encounter Summary ---
Demographics + + + | Address | [address] | | | [place] [address] | + + + | Home Phone [...] Team Providers + +------+ + | Care High School Math Tutor Name | Role | Phone | + +------+ + | Eriak Ernst DO | PCP | | + [...] | | | of left | [place] [address] | [place] [address] | | | | | ankle, | Phone: | Phone: | | | | | initial | [phone] | [phone] | | | | | encounter | Fax: | Fax: | | | | | Procedures | [phone] | [phone] | | | | | PT TREAT [...] [address] [place] | [place] [address] | encounter (Primary | | | | [place], [place] | [phone] | Dx); Fall on same | | | | [address] | | level from slipping, | | | | [phone] | Danial Tuttle | subsequent | | [...] might be differen t from the original. [facility] PT [address] [place] [address] Physical Therapy Daily Treatment Note Date: 10/04/2018 [...] the other pool when I go to [place]. A: We will do 1-2 more visits [...] Visit | | DO [address] [place] | | | | | | [place] [address] | | | | | | [phone] | | | | | | | | +--------+ + + + + | 10/30/ | Office | Primary Care | Erika Ernst, | | | 2019 | Visit | | DO [address] | | | | | | [place] [address] | | | | | | [phone] | | | | | | | [...] [place] | | | | | | [address] | | | | | | [phone] | | | | | | | | +--------+ + + + + | 02/09/ | Office | Neurology | Dhara, | | | 2019 | Visit | | [address] | | | | [address] [place], | | | | | | [place] [address] | | | | | | [phone] | | | | | | | | +--------+ + + + + documented as of this encounter Visit Diagnoses + + | Diagnosis | + + | Sprain of left ankle, subsequent encounter - Primary | + + | Fall on same level from slipping, subsequent encounter | + + documented in this encounter"
--- OUTSIDE RECORDS SUMMARY | ~2019-09-30 | XMS | Encounter Summary ---
Demographics + + + | Address | [address] | | | [place] [address] | + + + | Home Phone [...] Providers + +------+ + | Care Network Consultant Name | Role | Phone | [...] | | | of left | [place] [address] | [place] [address] | | | | | ankle, | Phone: | Phone: | | | | | initial | [phone] | [phone] | | | | | encounter | Fax: | Fax: | | | | | Procedures | [phone] | [phone] | | | | | PT TREAT [...] [address] [place] | [place] [address] | encounter (Primary | | | | [place], [place] | [phone] | Dx); Fall on same | | | | [address] | | level from slipping, | | | | [phone] | Julia Castillo | subsequent | | [...] be differen t from the original. [facility] PT [address] [place] [address] Physical Therapy Daily Treatment Note Date: 09/11/2018 [...] | | | | | [place] [address] | | | | | | [phone] | | | | | | | | +--------+ + + + + | 10/30/ | Office | Primary Care | Erika Ernst, | | | 2019 | Visit | | DO [address] [place] | | | | | | [place] [address] | | | | | | [phone] | | | | | | | [...] [place] | | | | | | [address] | | | | | | [phone] | | | | | | | | +--------+ + + + + | 02/09/ | Office | Neurology | Dhara, | | | 2019 | Visit | | [address] | | | | | | [address]TH [facility] [place], | | | | | | [place] [address] | | | | | | [phone] | | | | | | | | +--------+ + + + + documented as of this encounter Visit Diagnoses + + | Diagnosis | + + | Sprain of left ankle, subsequent encounter - Primary | + + | Fall on same level from slipping, subsequent encounter | + + documented in this encounter"
--- OUTSIDE RECORDS SUMMARY | ~2019-09-30 | XMS | Encounter Summary ---
Demographics + + + | Address | [address] | | | [place] [address] | + + + | Home Phone [...] + +------+ + | Care Forest Fire Warden Name | Role | Phone | + [...] | MEDICAL CLIN[facility] [address] | [place] [address] | | | | | [address] [place], | [phone] | | | | | [place] [address] | | | | | | [phone] | | | +--------+ + + + [...] | | | | | [place] [address] | | | | | | [phone] | | | | | | | | +--------+ + + + + | 10/30/ | Office | Primary Care | Erika Ernst, | | | 2019 | Visit | | DO [address] | | | | | | [place] [address] | | | | | | [phone] | | | | | | | [...] [place] | | | | | | [address] | | | | | | [phone] | | | | | | | | +--------+ + + + + | 02/09/ | Office | Neurology | Dhara, | | | 2019 | Visit | | [address] | | | | | | [address] [place], | | | | | | [place] [address] | | | | | | [phone] | | | | | | | | +--------+ + + + + documented as of this encounter Visit Diagnoses Not on filedocumented in this encounter"
--- OUTSIDE RECORDS SUMMARY | ~2019-09-30 | XMS | Encounter Summary ---
Demographics + + + | Address | [address] | | | [place] [address] | + + + | Home Phone [...] Providers + +------+ + | Care Sales And Marketing Associate Name | Role | Phone | + +------+ + PCP | Unavailable | + +------+ + Encounter Details +--------+ + + + + | Date | Type | Department | Care Team | Description | +--------+ + + + + | 06/18/ | [facility] | Heike Rodriguez, | | | 2013 | Encounter | [facility] | SYSTEM TRAINER [address] | | | | | C[address] | [place] | | | | | [place] | [address] | | | | | [address] | | | | | | [phone] | | | +--------+ + + + [...] | | | | | [place] [address] | | | | | | [phone] | | | | | | | | +--------+ + + + + | 10/30/ | Office | Primary Care | Erika Ernst, | | | 2019 | Visit | | DO [address] | | | | | | [place] [address] | | | | | | [phone] | | | | | | | [...] [place] | | | | | | [address] | | | | | | [phone] | | | | | | | | +--------+ + + + + | 02/09/ | Office | Neurology | Dhara, | | | 2020 | Visit | | [address] | | | [address] [place], | | | | | | [place] [address] | | | | | | [phone] | | | | | | | | +--------+ + + + + documented as of this encounter Visit Diagnoses Not on filedocumented in this encounter"
--- OUTSIDE RECORDS SUMMARY | ~2019-09-30 | XMS | Encounter Summary ---
Demographics + + + | Address | [address] | | | [place] [address] | + + + | Home Phone [...] Team Providers + +------+ + | Care Kilnman Name | Role | Phone | + [...] Medication Refill | | 2018 | | [facility] | [address] | | | | | MEDICAL CLIN[facility] [address] | | | | | | [address] [place], | | | | | | [place] [address] | | | | | | [phone] | | | +--------+--------+ + + + [...] 2019 | Visit | | [address] | | | | | | [place] [address] | | | | | | [phone] | | | | | | | | +--------+ + + + + | 01/29/ | Office | Primary Care | Erika Ernst, | | | 2019 | Visit | | DO [address] | | | | | | [place] [address] | | | | | | [phone] | | | | | | | [...] [place] | | | | | | [address] | | | | | | [phone] | | | | | | | | +--------+ + + + + | 02/09/ | Office | Neurology | Dhara, | | | 2019 | Visit | | [address] | | | | [address] [place], | | | | | | [place] [address] | | | | | | [phone] | | | | | | | | +--------+ + + + + documented as of this encounter Visit Diagnoses Not on filedocumented in this encounter"
--- OUTSIDE RECORDS SUMMARY | ~2019-09-30 | XMS | Encounter Summary ---
Demographics + + + | Address | [address] | | | [place] [address] | + + + | Home Phone [...] Team Providers + +------+ + | Care Review Engineer Name | Role | Phone | [...] Imaging | | 2019 | | [facility] | DO [address] | | | | | MEDICAL CLIN[facility] [address] | [place] [address] | | | | | [address] [place], | [phone] | | | | | [place] [address] | | | | | | [phone] | | | +--------+ + + + [...] | | | | | [place] [address] | | | | | | [phone] | | | | | | | | +--------+ + + + + | 10/30/ | Office | Primary Care | Erika Ernst, | | | 2019 | Visit | | DO [address] | | | | | | [place] [address] | | | | | | [phone] | | | | | | | [...] [place] | | | | | | [address] | | | | | | [phone] | | | | | | | | +--------+ + + + + | 02/09/ | Office | Neurology | Dhara, | | | 2020 | Visit | | [address] | | | | | | [address] [place], | | | | | | [place] [address] | | | | | | [phone] | | | | | | | | +--------+ + + + + documented as of this encounter Visit Diagnoses Not on filedocumented in this encounter"
--- OUTSIDE RECORDS SUMMARY | ~2019-09-30 | XMS | Encounter Summary ---
Demographics + + + | Address | [address] | | | [place] [address] | + + + | Home Phone [...] Team Providers + +------+ + | Care Antique Furniture Repairer Name | Role | Phone | + +------+ + PCP | Unavailable | + +------+ + Encounter Details +--------+ + + + + | Date | Type | Department | Care Team | Description | +--------+ + + + + | 08/02/ | [facility] | [place] [facility] | Erika Ernst, | | | 2015 | Encounter | [facility] | DO [address] | | | | | MEDICAL CLIN[facility] [address] | [facility] [address] | | | | | [address] [place], | [phone] | | | | | [place] [address] | | | | | | [phone] | | | +--------+ + + + [...] | | | | | [place] [address] | | | | | | [phone] | | | | | | | | +--------+ + + + + | 10/30/ | Office | Primary Care | Erika Ernst, | | | 2019 | Visit | | DO [address] | | | | | | [place] [address] | | | | | | [phone] | | | | | | | [...] [place] | | | | | | [address] | | | | | | [phone] | | | | | | | | +--------+ + + + + | 02/09/ | Office | Neurology | Dhara, | | | 2019 | Visit | | [address] | | | | [address] [place], | | | | | | [place] [address] | | | | | | [phone] | | | | | | | | +--------+ + + + + documented as of this encounter Visit Diagnoses Not on filedocumented in this encounter"
--- OUTSIDE RECORDS SUMMARY | ~2019-09-30 | XMS | Encounter Summary ---
Demographics + + + | Address | [address] | | | [place] [address] | + + + | Home Phone [...] Providers + +------+ + | Care Fibre Composite Technician Name | Role | Phone | + +------+ + PCP | Unavailable | + +------+ + Encounter Details +--------+ + + + + | Date | Type | Department | Care Team | Description | +--------+ + + + + | 05/19/ | [facility] | [facility] | Amaya Varner NP | | | 2016 | Encounter | [facility] | [address] | | | | | MEDICAL CLIN[facility] [address] | [place], [place] | | | | | [address] [place], | [address] | | | | | [place] [address] | [phone] | | | | | [phone] | | | +--------+ + + + [...] | | | | | [place] [address] | | | | | | [phone] | | | | | | | | +--------+ + + + + | 10/30/ | Office | Primary Care | Erika Ernst, | | | 2019 | Visit | | DO [address] | | | | | | [place] [address] | | | | | | [phone] | | | | | | | [...] [place] | | | | | | [address] | | | | | | [phone] | | | | | | | | +--------+ + + + + | 02/09/ | Office | Neurology | Dhara, | | | 2019 | Visit | | [address] | | | | [address] [place], | | | | | | [place] [address] | | | | | | [phone] | | | | | | | | +--------+ + + + + documented as of this encounter Visit Diagnoses Not on filedocumented in this encounter"
--- OUTSIDE RECORDS SUMMARY | ~2019-09-30 | XMS | Encounter Summary ---
Demographics + + + | Address | [address] | | | [place] [address] | + + + | Home Phone [...] Providers + +------+ + | Care Gun Perforator Loader Name | Role | Phone | + +------+ + PCP | Unavailable | + +------+ + Encounter Details +--------+ + + + + | Date | Type | Department | Care Team | Description | +--------+ + + + + | 04/27/ | [facility] | [place] [facility] | Erika Ernst, | | | 2016 | Encounter | [facility] | DO [address] | | | | | MEDICAL CLINIC [address] | [place] [address] | | | | | [address] [place], | [phone] | | | | | [place] [address] | | | | | | [phone] | | | +--------+ + + + [...] | | | | | [place] [address] | | | | | | [phone] | | | | | | | | +--------+ + + + + | 10/30/ | Office | Primary Care | Erika Ernst, | | | 2019 | Visit | | DO [address] | | | | | | [place] [address] | | | | | | [phone] | | | | | | | [...] [place] | | | | | | [address] | | | | | | [phone] | | | | | | | | +--------+ + + + + | 02/09/ | Office | Neurology | Dhara, | | | 2019 | Visit | | [address] | | | [address] [place], | | | | | | [place] [address] | | | | | | [phone] | | | | | | | | +--------+ + + + + documented as of this encounter Visit Diagnoses Not on filedocumented in this encounter"
--- OUTSIDE RECORDS SUMMARY | ~2019-09-30 | XMS | Encounter Summary ---
Demographics + + + | Address | [address] | | | [place] [address] | + + + | Home Phone [...] Team Providers + +------+ + | Care Underwriting Specialist Name | Role | Phone | [...] | | | | s (de | [place], [place] | [place] [address] | | | | | quervain) | [address] | Phone: | | | | | Pain in | Phone: | [phone] | | | | | right wrist | [phone] | Fax: | | | | | Procedures | Fax: | [phone] | | | | | OT TREAT | [phone] | | +--------+--------+ + + + + [...] | | [address] [place] | [place] [address] | (Primary Dx); Right | | | | [place], [place] | [phone] | wrist pain | | | | [address] | | | | | | [phone] | Nakia Koo OT | | +--------+ [...] | 11/26/19 | | | (VITAMIN D3) [address] | mouth Once a week | tablet [...] Ordering Physician: Jeffrey Gandhi MD Claim #: [id number] Date of Injury: No data was found [...] at last Assessment Left Hand Strength - Box Lining Machine Operator (lbs) L Box Lining Machine Operator Trial Average: 47 L Three Jaw Payam Trial Average: 12 L Lateral Pinch Trial Average: 17.33 Right Hand Strength - Box Lining Machine Operator (lbs) R Box Lining Machine Operator Trial Average: 25.67 R Three Jaw Payam Trial Average: 9.33 R Lateral Pinch Trial Average: 10.33 Current Strength Strength: Left Hand Strength - Box Lining Machine Operator (lbs) L Box Lining Machine Operator Trial 1: 51 L Box Lining Machine Operator Trial Average: 51 Right Hand Strength - Box Lining Machine Operator (lbs) R Box Lining Machine Operator Trial 1: 25 R Box Lining Machine Operator Trial Average: 25 Proposed Treatment Dates for Majoris Review Proposed treatments date: 12/06/2018 to 01/06/2019 Plan Date of Onset: 07/20/2018 Start of Care Date: 08/07/2018 Requested # of Visits: 24 visits 2x/week for 12 weeks Certification From: 10/30/2018 Certification To: 01/22/2019 Treatment Plan/Interventions OT [id number] - Therapeutic [id number] - Therapeutic Wieoxrbmcn60616 - Self Care/Ho me Wdxekhokdf79205 - Manual Iguvdht08809 - Orthotic/Prosthetic Ietzqdjo36939 - Akkgvhdvyw785 34 - Contrast Uxgw73092 - Paraffin BathSplinting Moist heat, cold therapy [...] period and is compliant with wrist and registered dietetic technician strengthening exercises. She does still hav e deficits in registered dietetic technician strength and wrist stability as well as pain with daily activities. Her j ob description may be changing which would decrease the physical demands of her work, making it more appropriate for her current status. She continues to benefit from [employer] apy to maximize her registered dietetic technician strength and wrist stability following this injury and return her t o prior level of function. 10/30/2018 - REASON FOR RE-CERTIFICATION: Andrea has received 12 Occupational Therapy treatme nts since 08/07/2018 following her right wrist surgery. She has regained full AROM of the rig ht wrist but continues to have right wrist, registered dietetic technician and pinch weakness and significant pain [...] in 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, and registered dietetic technician and pinch weakness in the right [...] note might be different from the original. 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 She does still hav e deficits in registered dietetic technician strength and wrist stability as well as pain with daily activities. Her j ob description may be changing which would decrease the physical demands of her work, making it more appropriate for her current status. She continues to benefit from Manager Medical apy to maximize her registered dietetic technician strength and wrist stability following this injury and return her t o prior level of function. 10/30/2018 - REASON FOR RE-CERTIFICATION: Andrea has received 12 Occupational Therapy treatme nts since 08/07/2018 following her right wrist surgery. She has regained full AROM of the rig ht wrist but continues to have right wrist, registered dietetic technician and pinch weakness and significant pain [...] in 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, and registered dietetic technician and pinch weakness in the right [...] Goal 2: The pt will have right registered dietetic technician strength of 50 lbs by discharge Goal 2 Status: PARTIALLY MET at PN 11/29/2018 - Right registered dietetic technician has increased from 20 to 26 lbs s jessie evaluaiton. Left registered dietetic technician is 47 lbs Goal 3: The pt will have increased right pinch strength to 13 lbs by discharge Goal 3 Status: PARTIALLY MET at PN 11/01/2018 - right pinch is 9 lbs, left is 15 lbs Goal 4: The pt will be independent and compliant with HEP Goal 4 Status: ONGOING - pt reports daily compliance with HEP which includes wrist, registered dietetic technician an d pinch strengthening as well as general UE strengthening Plan Date of Onset: 07/20/2018 Start of Care Date: 08/07/2018 Requested # of Visits: 24 visits 2x/week for 12 weeks Certification From: 10/30/2018 Certification To: 01/22/2019 Treatment Plan/Interventions OT Aefotnynog21066 - Therapeutic Oybfdyyd72004 - Therapeutic Guqbmslyta55151 - Self Care/Ho me Fhyvhmitpx08980 - Manual Vzvutpf80424 - Orthotic/Prosthetic Gjdgocfb79042 - Sppslfdaoe205 34 - Contrast Qcfi70267 - Paraffin BathSplinting Moist heat, cold therapy [...] | | | | | [place] [address] | | | | | | [phone] | | | | | | | | +--------+ + + + + | 10/30/ | Office | Primary Care | Erika Ernst, | | | 2019 | Visit | | DO [address] | | | | | | [place] [address] | | | | | | [phone] | | | | | | | [...] [place] | | | | | | [address] | | | | | | [phone] | | | | | | | | +--------+ + + + + | 02/09/ | Office | Neurology | Dhara, | | | 2019 | Visit | | [address] | | | | | [address] [place], | | | | | | [place] [address] | | | | | | [phone] | | | | | | | | +--------+ + + + + documented as of this encounter Visit Diagnoses + + | Diagnosis | + + | Radial styloid tenosynovitis - Primary | + + | Right wrist pain Pain in joint, forearm | + + documented in this encounter"
--- OUTSIDE RECORDS SUMMARY | ~2019-09-30 | XMS | Encounter Summary ---
Demographics + + + | Address | [address] | | | [place] [address] | + + + | Home Phone [...] Team Providers + +------+ + | Care Shop Clerk Name | Role | Phone | + +------+ + | Erika Ernst DO | PCP | | + +------+ + Reason for Visit + + + | Reason | Comments | + + + | Imaging Only | CT HEAD from [facility] | + + + Encounter Details +--------+ + + + + | Date | Type | Department | Care Team | Description | +--------+ + + + + | 01/25/ | Telephone | [place] [facility] | Luis Nichole MD | Imaging Only (CT | | 2019 | | HOSPITAL CT [address] | [address] | HEAD from [facility] | | | | [address] [place] | [facility], [place] | [facility]) | | | | [facility] [place] | [address] | | | | | [address] | | | | | | [phone] | | | +--------+ + + + [...] [address] | | | | | | [phone] | | | | | | | | +--------+ + + + + | 10/30/ | Office | Primary Care | Erika Ernst, | | | 2019 | Visit | | DO [address] [place] | | | | | | [place] [address] | | | | | | [phone] | | | | | | | [...] [place] | | | | | | [address] | | | | | | [phone] | | | | | | | | +--------+ + + + + | 02/09/ | Office | Neurology | Dhara, | | | 2020 | Visit | | [address] | | | [address] [place], | | | | | | [place] [address] | | | | | | [phone] | | | | | | | | +--------+ + + + + documented as of this encounter Visit Diagnoses Not on filedocumented in this encounter"
--- OUTSIDE RECORDS SUMMARY | ~2019-09-30 | XMS | Encounter Summary ---
Demographics + + + | Address | [address] | | | [place] [address] | + + + | Home Phone [...] Team Providers + +------+ + | Care Employee Relation Manager Name | Role | Phone | [...] | | | of left | [place] [address] | [place] [address] | | | | | ankle, | Phone: | Phone: | | | | | initial | [phone] | [phone] | | | | | encounter | Fax: | Fax: | | | | | Procedures | [phone] | [phone] | | | | | PT TREAT [...] [address] | [place] [address] | encounter (Primary | | | | [place], [place] | [phone] | Dx) | | | | [address] | | | | | | [phone] | Nick Barrios I, PT | | [...] be different fro m the original. [facility] [address] [place] [address] Physical Therapy Daily Treatment Note Date: 10/18/2018 [...] in favor of SL heel raise with ELECTRICAL TRANSMISSION ENGINEER. ONGOING: SLS on even surface 3x3 0 [...] [address] | | | | | | [phone] | | | | | | | | +--------+ + + + + | 10/30/ | Office | Primary Care | Erika Ernst, | | | 2019 | Visit | | DO [address] [place] | | | | | | [place] [address] | | | | | | [phone] | | | | | | | [...] [place] | | | | | | [address] | | | | | | [phone] | | | | | | | | +--------+ + + + + | 02/09/ | Office | Neurology | Dhara, | | | 2019 | Visit | | [address]WA[address] | | | | | [address] [place], | | | | | | [place] [address] | | | | | | [phone] | | | | | | | | +--------+ + + + + documented as of this encounter Visit Diagnoses + + | Diagnosis | + + | Sprain of left ankle, subsequent encounter - Primary | + + documented in this encounter
--- OUTSIDE RECORDS SUMMARY | ~2019-09-30 | XMS | Encounter Summary ---
Demographics + + + | Address | [address] | | | [place] [address] | + + + | Home Phone [...] Providers + +------+ + | Care Child Care Centre Director Name | Role | Phone | + +------+ + PCP | Unavailable | + +------+ + Encounter Details +--------+ + + + + | Date | Type | Department | Care Team | Description | +--------+ + + + + | 02/25/ | [facility] | Caro Zendejas | | | 2015 | Encounter | [facility] | Vale, OCCUPATIONAL SAFETY SPECIALIST [address] | | | | | [facility] [address] | [facility], [place] | | | | | [address]TH [facility], | [address] | | | | | [place] [address] | [phone] | | | | | [phone] | | | +--------+ + + + [...] | | | | | [place] [address] | | | | | | [phone] | | | | | | | | +--------+ + + + + | 10/30/ | Office | Primary Care | Erika Ernst, | | | 2019 | Visit | | DO [address] | | | | | | [place] [address] | | | | | | [phone] | | | | | | | [...] [place] | | | | | | [address] | | | | | | [phone] | | | | | | | | +--------+ + + + + | 02/09/ | Office | Neurology | Dhara, | | | 2020 | Visit | | [address] | | | | | | [address] [place], | | | | | | [place] [address] | | | | | | [phone] | | | | | | | | +--------+ + + + + documented as of this encounter Visit Diagnoses Not on filedocumented in this encounter"
--- OUTSIDE RECORDS SUMMARY | ~2019-09-30 | XMS | Encounter Summary ---
Demographics + + + | Address | [address] | | | [place] [address] | + + + | Home Phone [...] Team Providers + +------+ + | Care Ship Officer Name | Role | Phone | + +------+ + PCP | Unavailable | + +------+ + Encounter Details +--------+ + + + + | Date | Type | Department | Care Team | Description | +--------+ + + + + | 09/10/ | [facility] | [place] [facility] | Erika Ernst, | | | 2014 | Encounter | [facility] | DO [address] | | | | | MEDICAL CL[facility] [address] | [place] [address] | | | | | [address] [facility], | [phone] | | | | | [place] [address] | | | | | | [phone] | | | +--------+ + + + [...] | | | | | [place] [address] | | | | | | [phone] | | | | | | | | +--------+ + + + + | 10/30/ | Office | Primary Care | Erika Ernst, | | | 2019 | Visit | | DO [address] | | | | | | [place] [address] | | | | | | [phone] | | | | | | | [...] [place] | | | | | | [address] | | | | | | [phone] | | | | | | | | +--------+ + + + + | 02/09/ | Office | Neurology | Dhara, | | | 2020 | Visit | | [address] | | | | | | [address] [place], | | | | | | [place] [address] | | | | | | [phone] | | | | | | | | +--------+ + + + + documented as of this encounter Visit Diagnoses Not on filedocumented in this encounter"
--- OUTSIDE RECORDS SUMMARY | ~2019-09-30 | XMS | Encounter Summary ---
Demographics + + + | Address | [address] | | | [place] [address] | + + + | Home Phone [...] Team Providers + +------+ + | Care Wash Oil Pump Operator Helper Name | Role | Phone [...] | [facility] [address] | [place] [address] | | | | | [address] [place], | [phone] | | | | | [place] [address] | | | | | | [phone] | | | +--------+ + + + [...] | 2018 | Visit | | DO [address] [place] [address] | | | | | | [place] [address] | | | | | | [phone] | | | | | | | | +--------+ + + + + | 10/30/ | Office | Primary Care | Erika Ernst, | | | 2019 | Visit | | DO [address] | | | | | | [place] [address] | | | | | | [phone] | | | | | | | [...] [place] | | | | | | [address] | | | | | | [phone] | | | | | | | | +--------+ + + + + | 02/09/ | Office | Neurology | Dhara, | | | 2019 | Visit | | [address]WA[address] | | | | | [address] [place], | | | | | | [place] [address] | | | | | | [phone] | | | | | | | | +--------+ + + + + documented as of this encounter Visit Diagnoses Not on filedocumented in this encounter"
--- OUTSIDE RECORDS SUMMARY | ~2019-09-30 | XMS | Encounter Summary ---
Demographics + + + | Address | [address] | | | [place] [address] | + + + | Home Phone [...] Providers + +------+ + | Care Comic Artist Name | Role | Phone | [...] Order | | 2019 | | [facility] | DO [address] | | | | | MEDICAL CLIN[facility] [address] | [place] [address] | | | | | [address] [place], | [phone] | | | | | [place] [address] | | | | | | [phone] | | | +--------+ + + + [...] | | | | | [place] [address] | | | | | | [phone] | | | | | | | | +--------+ + + + + | 10/30/ | Office | Primary Care | Erika Ernst, | | | 2019 | Visit | | DO [address] [facility] | | | | | | [place] [address] | | | | | | [phone] | | | | | | | [...] [place] | | | | | | [address] | | | | | | [phone] | | | | | | | | +--------+ + + + + | 02/09/ | Office | Neurology | Dhara, | | | 2019 | Visit | | [address] | | | | | | [address]TH [place], | | | | | | [place] [address] | | | | | | [phone] | | | | | | | | +--------+ + + + + documented as of this encounter Visit Diagnoses Not on filedocumented in this encounter"
--- OUTSIDE RECORDS SUMMARY | ~2019-09-30 | XMS | Encounter Summary ---
Demographics + + + | Address | [address] | | | [place] [address] | + + + | Home Phone [...] Providers + +------+ + | Care Business Intelligence Engineer Name | Role | Phone | [...] | | | of left | [place] [address] | [address] | | | | | ankle, | Phone: | Phone: | | | | | subsequent | [phone] | [phone] | | | | | encounter | Fax: | Fax: | | | | | Procedures | [phone] | [phone] | | | | | MRI Foot [...] [address] | [place] [address] | ligament of left | | | | [place], [place] | [phone] | ankle, subsequent | | | | [address] | | encounter | | | | [phone] | | | +--------+ + + + [...] | 19 | 9 | | BRACE [id number]) | | | | | | | [...] | | | | | [place] [address] | | | | | | [phone] | | | | | | | | +--------+ + + + + | 10/30/ | Office | Primary Care | Erika Ernst, | | | 2019 | Visit | | DO [address] | | | | | | [place] [address] | | | | | | [phone] | | | | | | | [...] [place] | | | | | | [address] | | | | | | [phone] | | | | | | | | +--------+ + + + + | 02/09/ | Office | Neurology | Dhara, | | | 2019 | Visit | | [address] | | | | | | [address] [place], | | | | | | [place] [address] | | | | | | [phone] | | | | | | | | +--------+ + + + + documented as of this encounter Visit Diagnoses + + | Diagnosis | + + | Sprain of calcaneofibular ligament of left ankle, subsequent encounter | + + documented in this encounter"
--- OUTSIDE RECORDS SUMMARY | ~2019-09-30 | XMS | Encounter Summary ---
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 | [address] | Oncology [address] | | | | | | [place], | [address] | | | | | | [place] [address] | [place], [place] | | | | | | Phone: | [address] | | | | | | [phone] | Phone: | | | | | | Fax: | [phone] | | | | | | [phone] | Fax: | | | | | | | [phone] | + + + + + + [...] | MEDICAL CLIN[facility] [address] | [place] [address] | | | | | [address] [place], | [phone] | | | | | [place] [address] | | | | | | [phone] | | | +--------+ + + + [...] | 2018 | Visit | | [address] | | | | | | [place], [place] [address] | | | | | | [phone] | | | | | | | | +--------+ + + + + | 10/30/ | Office | Primary Care | Erika Ernst, | | | 2019 | Visit | | DO [address] | | | | | | [place] [address] | | | | | | [phone] | | | | | | | [...] [place] | | | | | | [address] | | | | | | [phone] | | | | | | | | +--------+ + + + + | 02/09/ | Office | Neurology | Dhara, | | | 2019 | Visit | | [address] | | | | | | [address] [place], | | | | | | [place] [address] | | | | | | [phone] | | | | | | | [...]
--- OUTSIDE RECORDS SUMMARY | ~2019-09-30 | XMS | Encounter Summary ---
Demographics + + + | Address | [address] | | | [place] [address] | + + + | Home Phone [...] Providers + +------+ + | Care Field Mechanic Name | Role | Phone | + +------+ + PCP | Unavailable | + +------+ + Encounter Details +--------+ + + + + | Date | Type | Department | Care Team | Description | +--------+ + + + + | 02/07/ | [facility] | Sepnser Roberts NP | | | 2014 | Encounter | [facility] | [address], | | | | | [facility] [address] | [place] [address] | | | | | 4TH [facility], | [phone] | | | | | [place] [address] | | | | | | [phone] | | | +--------+ + + + [...] | | | | | [place] [address] | | | | | | [phone] | | | | | | | | +--------+ + + + + | 10/30/ | Office | Primary Care | Erika Ernst, | | | 2019 | Visit | | DO [address] | | | | | | [place] [address] | | | | | | [phone] | | | | | | | [...] [place] | | | | | | [address] | | | | | | [phone] | | | | | | | | +--------+ + + + + | 02/09/ | Office | Neurology | Dhara, | | | 2020 | Visit | | [address] | | | | | | [address] [place], | | | | | | [place] [address] | | | | | | [phone] | | | | | | | | +--------+ + + + + documented as of this encounter Visit Diagnoses Not on filedocumented in this encounter"
--- OUTSIDE RECORDS SUMMARY | ~2019-09-30 | XMS | Encounter Summary ---
Demographics + + + | Address | [address] | | | [place] [address] | + + + | Home Phone [...] Team Providers + +------+ + | Care Whitewasher Name | Role | Phone | + [...] | MEDICAL CLIN[facility] [address] | [place] [address] | Dx); Right hand | | | | [address] [place], | [phone] | pain; Foot pain, | | | | [place] [address] | | left; Tongue sore; | | | | [phone] | | Anemia, unspecified | | | [...] had a fall when she tripped on [employer] [facility]10 and went to ER. [...] | | | | | [place] [address] | | | | | | [phone] | | | | | | | | +--------+ + + + + | 10/30/ | Office | Primary Care | Erika Ernst, | | | 2019 | Visit | | DO [address] [place] | | | | | | [place] [address] | | | | | | [phone] | | | | | | | [...] [place] | | | | | | [address] | | | | | | [phone] | | | | | | | | +--------+ + + + + | 02/09/ | Office | Neurology | Dhara, | | | 2019 | Visit | | [address] | | | | | | [address] [place], | | | | | | [place] [address] | | | | | | [phone] | | | | | | | [...] + + | [place] [facility] | [address] | [place] [address] | [phone] | | [facility] | | | [...] + + | [place] [facility] | [address] | [place] [address] | [phone] | | H[facility]ITAL [facility] | | | [...] + + | [place] [facility] | [address] | [place] [address] | [phone] | | [facility]ITAL [facility] | | | [...] + + | [place] [facility] | [address] | [place] [address] | [phone] | | [facility] | | | [...]
--- OUTSIDE RECORDS SUMMARY | ~2019-09-30 | XMS | Encounter Summary ---
Demographics + + + | Address | [address] | | | [place] [address] | + + + | Home Phone [...] Providers + +------+ + | Care Video Recorder Mechanic Name | Role | Phone | [...] Refill | | 2019 | | [facility] | [address] | | | | | MEDICAL CL[facility] [address] | [facility] [place] [address] | | | | | [address] [place], | [phone] | | | | | [place] [address] | | | | | | [phone] | | | +--------+ + + + [...] | | | | | [place] [address] | | | | | | [phone] | | | | | | | | +--------+ + + + + | 10/30/ | Office | Primary Care | Erika Ernst, | | | 2019 | Visit | | DO [address] | | | | | | [place] [address] | | | | | | [phone] | | | | | | | [...] [place] | | | | | | [address] | | | | | | [phone] | | | | | | | | +--------+ + + + + | 02/09/ | Office | Neurology | Dhara, | | | 2020 | Visit | | [address] | | | | | | [address] [place], | | | | | | [place] [address] | | | | | | [phone] | | | | | | | | +--------+ + + + + documented as of this encounter Visit Diagnoses Not on filedocumented in this encounter"
--- OUTSIDE RECORDS SUMMARY | ~2019-09-30 | XMS | Encounter Summary ---
Demographics + + + | Address | [address] | | | [place] [address] | + + + | Home Phone [...] Providers + +------+ + | Care Paper Core Machine Operator Name | Role | Phone [...] | MEDICAL [facility] [address] | [place] [address] | | | | | [address] [place], | [phone] | | | | | [place] [address] | | | | | | [phone] | | | +--------+ + + + [...] | | | | | | [place] [address] | | | | | | [phone] | | | | | | | | +--------+ + + + + | 10/30/ | Office | Primary Care | Erika Ernst, | | | 2019 | Visit | | DO [address] [place] | | | | | | [place] [address] | | | | | | [phone] | | | | | | | [...] [place] | | | | | | [address] | | | | | | [phone] | | | | | | | | +--------+ + + + + | 02/09/ | Office | Neurology | Dhara, | | | 2019 | Visit | | [address] | | | | | | [address] [place], | | | | | | [place] [address] | | | | | | [phone] | | | | | | | | +--------+ + + + + documented as of this encounter Visit Diagnoses Not on filedocumented in this encounter"
--- OUTSIDE RECORDS SUMMARY | ~2019-09-30 | XMS | Encounter Summary ---
Demographics + + + | Address | [address] | | | [place] [address] | + + + | Home Phone [...] Providers + +------+ + | Care Mechanical Assembly Name | Role | Phone | + +------+ + PCP | Unavailable | + +------+ + Encounter Details +--------+ + + + + | Date | Type | Department | Care Team | Description | +--------+ + + + + | [facility] Denise Mcgregor | | | 2016 | Encounter | [facility] | G, CORE COMPOSER MACHINE TENDER [address] | | | | | MEDICAL CL[facility] [address] | [facility] [place] | | | | | [address] [facility], | [address] | | | | | [place] [address] | [phone] | | | | | [phone] | | | +--------+ + + + [...] | | | | | [place] [address] | | | | | | [phone] | | | | | | | | +--------+ + + + + | 10/30/ | Office | Primary Care | Erika Ernst, | | | 2019 | Visit | | DO [address] | | | | | | [place] [address] | | | | | | [phone] | | | | | | | [...] [place] | | | | | | [address] | | | | | | [phone] | | | | | | | | +--------+ + + + + | 02/09/ | Office | Neurology | Dhara, | | | 2019 | Visit | | [address] | | | | | | [address] [place], | | | | | | [place] [address] | | | | | | [phone] | | | | | | | | +--------+ + + + + documented as of this encounter Visit Diagnoses Not on filedocumented in this encounter"
--- OUTSIDE RECORDS SUMMARY | ~2019-09-30 | XMS | Encounter Summary ---
Demographics + + + | Address | [address] | | | [place] [address] | + + + | Home Phone [...] Team Providers + +------+ + | Care Telecommunications Linesworker Name | Role | Phone | + +------+ + PCP | Unavailable | + +------+ + Encounter Details +--------+ + + + + | Date | Type | Department | Care Team | Description | +--------+ + + + + | 05/20/ | [facility] | [place] | Amaya Varner NP | | | 2015 | Encounter | [facility] | [address] | | | | | MEDICAL CL[facility] [address] | [place], [place] | | | | | [address] [place], | [address] | | | | | [place] [address] | [phone] | | | | | [phone] | | | +--------+ + + + [...] | | | | | [place] [address] | | | | | | [phone] | | | | | | | | +--------+ + + + + | 10/30/ | Office | Primary Care | Erika Ernst, | | | 2019 | Visit | | DO [address] | | | | | | [place] [address] | | | | | | [phone] | | | | | | | [...] [place] | | | | | | [address] | | | | | | [phone] | | | | | | | | +--------+ + + + + | 02/09/ | Office | Neurology | Dhara, | | | 2020 | Visit | | [address] | | | | | | [address] [place], | | | | | | [place] [address] | | | | | | [phone] | | | | | | | | +--------+ + + + + documented as of this encounter Visit Diagnoses Not on filedocumented in this encounter"
--- OUTSIDE RECORDS SUMMARY | ~2019-09-30 | XMS | Encounter Summary ---
Demographics + + + | Address | [address] | | | [place] [address] | + + + | Home Phone [...] Team Providers + +------+ + | Care Detail Manager Name | Role | Phone | [...] Results, Imaging | | 2019 | | [facility] | WELDER RAILCAR MECHANIC | | | | | MEDICAL CL[facility] [address] | | | | | | 4TH [facility] [place], | | | | | | [place] [address] | | | | | | [phone] | | | +--------+ + + + [...] | | | | | [place] [address] | | | | | | [phone] | | | | | | | | +--------+ + + + + | 10/30/ | Office | Primary Care | Erika Ernst, | | | 2019 | Visit | | DO [address] [place] | | | | | | [place] [address] | | | | | | [phone] | | | | | | | [...] [place] | | | | | | [address] | | | | | | [phone] | | | | | | | | +--------+ + + + + | 02/09/ | Office | Neurology | Dhara, | | | 2019 | Visit | | [address] | | | | | | [address] [place], | | | | | | [place] [address] | | | | | | [phone] | | | | | | | | +--------+ + + + + documented as of this encounter Visit Diagnoses Not on filedocumented in this encounter"
--- OUTSIDE RECORDS SUMMARY | ~2019-09-30 | XMS | Encounter Summary ---
Demographics + + + | Address | [address] | | | [place] [address] | + + + | Home Phone [...] Team Providers + +------+ + | Care Molding Line Operator Name | Role | Phone | [...] | | | | s (de | [place], [place] | [place] [address] | | | | | quervain) | [address] | Phone: | | | | | Pain in | Phone: | [phone] | | | | | right wrist | [phone] | Fax: | | | | | Procedures | Fax: | [phone] | | | | | OT TREAT | [phone] | | +--------+--------+ + + + + [...] | | [address] [place] | [place] [address] | (Primary Dx); Right | | | | [place], [place] | [phone] | wrist pain | | | | [address] | | | | | | [phone] | Nakia Koo OT | | +--------+ [...] | 11/26/19 | | | (VITAMIN D3) 88717 | mouth Once a week | tablet | | 19 | 9 | | units TABS | for 16 doses. | | | | | + + + +---------+ + + | D3-50 89688 units | | | 0 | 12/13/19 [...] Koo, OT - 12/13/2018 1:[address] [facility] [address] [place] [address] Occupational Therapy Daily Treatment Note Date: 12/13/2018 [...] loading and prop rioception at tabletop, 5' wind energy technician strengthening 1-2x/day light resistance, and second surgic [...] period and is compliant with wrist and wind energy technician strengthening exercises. She does still hav e deficits in wind energy technician strength and wrist stability as well as pain with daily activities. Her j ob description may be changing which would decrease the physical demands of her work, making it more appropriate for her current status. She continues to benefit from Pharmaceutical Sales Specialist apy to maximize her wind energy technician strength and wrist stability following this injury and return her t o prior level of function. 10/30/2018 - REASON FOR RE-CERTIFICATION: Andrea has received 12 Occupational Therapy treatme nts since 08/07/2018 following her right wrist surgery. She has regained full AROM of the rig ht wrist but continues to have right wrist, wind energy technician and pinch weakness and significant pain [...] in 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, and wind energy technician and pinch weakness in the right [...] | | | | | [place] [address] | | | | | | [phone] | | | | | | | | +--------+ + + + + | 10/30/ | Office | Primary Care | Erika Ernst, | | | 2019 | Visit | | DO [address] [place] | | | | | | [place] [address] | | | | | | [phone] | | | | | | | [...] [place] | | | | | | [address] | | | | | | [phone] | | | | | | | | +--------+ + + + + | 02/09/ | Office | Neurology | Dhara, | | | 2019 | Visit | | [address] | | | | | [address] [place], | | | | | | [place] [address] | | | | | | [phone] | | | | | | | | +--------+ + + + + documented as of this encounter Visit Diagnoses + + | Diagnosis | + + | Radial styloid tenosynovitis - Primary | + + | Right wrist pain Pain in joint, forearm | + + documented in this encounter
--- OUTSIDE RECORDS SUMMARY | ~2019-09-30 | XMS | Encounter Summary ---
Demographics + + + | Address | [address] | | | [place] [address] | + + + | Home Phone [...] Team Providers + +------+ + | Care Marine Cargo Inspector Name | Role | Phone | [...] | Encounter | H[facility] | TANK FARM GAUGER-AIRCRAFT ENGINE CYLINDER MECHANIC [address] | index finger, | | | | [place] [address] | initial encounter | | | | [place], [place] | [place] [address] | | | | | [address] | [phone] | | | | | [phone] | | | +--------+ + + + [...] | 04/12/20 | | | (VITAMIN D3) 65125 | mouth Once a week | tablet [...] | | | | | [place] [address] | | | | | | [phone] | | | | | | | | +--------+ + + + + | 10/30/ | Office | Primary Care | Erika Ernst, | | | 2019 | Visit | | DO [address] [place] | | | | | | [place] [address] | | | | | | [phone] | | | | | | | [...] [place] | | | | | | [address] | | | | | | [phone] | | | | | | | | +--------+ + + + + | 02/09/ | Office | Neurology | Dhara, | | | 2020 | Visit | | DWAINE Ross [address] [place], | | | | | | [place] [address] | | | | | | [phone] | | | | | | | [...]
--- OUTSIDE RECORDS SUMMARY | ~2019-09-30 | XMS | Encounter Summary ---
Demographics + + + | Address | [address] | | | [place] [address] | + + + | Home Phone [...] Team Providers + +------+ + | Care Masseur/Masseuse Name | Role | Phone | + [...] Results | | 2017 | | [facility] | INSURANCE UNDERWRITER | | | | | [facility] [address] | | | | | | [address] [facility] [place], | | | | | | [place] [address] | | | | | | [phone] | | | +--------+ + + + [...] | | | | | | [place] [address] | | | | | | [phone] | | | | | | | | +--------+ + + + + | 10/30/ | Office | Primary Care | Erika Ernst, | | | 2019 | Visit | | DO [address] | | | | | | [place] [address] | | | | | | [phone] | | | | | | | [...] [place] | | | | | | [address] | | | | | | [phone] | | | | | | | | +--------+ + + + + | 02/09/ | Office | Neurology | Dhara, | | | 2019 | Visit | | DWAINE Ross [address] [place], | | | | | | [place] [address] | | | | | | [phone] | | | | | | | | +--------+ + + + + documented as of this encounter Visit Diagnoses Not on filedocumented in this encounter"
--- OUTSIDE RECORDS SUMMARY | ~2019-09-30 | XMS | Encounter Summary ---
Demographics + + + | Address | [address] | | | [place] [address] | + + + | Home Phone [...] Team Providers + +------+ + | Care Concrete Mason Name | Role | Phone | + [...] | CENTER [address] [place], [place] | | | | | [place], [place] | [address] | | | | | [address] | | | | | | [phone] | | | +--------+ + + + [...] | | | | | [place] [address] | | | | | | [phone] | | | | | | | | +--------+ + + + + | 10/30/ | Office | Primary Care | Erika Ernst, | | | 2019 | Visit | | DO [address] | | | | | | [place] [address] | | | | | | [phone] | | | | | | | [...] [place] | | | | | | [address] | | | | | | [phone] | | | | | | | | +--------+ + + + + | 02/09/ | Office | Neurology | Dhara, | | | 2020 | Visit | | DWAINE [address] | | | | | | [address] [place], | | | | | | [place] [address] | | | | | | [phone] | | | | | | | | +--------+ + + + + documented as of this encounter Visit Diagnoses Not on filedocumented in this encounter"
--- OUTSIDE RECORDS SUMMARY | ~2019-09-30 | XMS | Encounter Summary ---
Demographics + + + | Address | [address] | | | [place] [address] | + + + | Home Phone [...] Team Providers + +------+ + | Care Lanolin Plant Operator Name | Role | Phone | [...] | | | | disorder) | [place] [address] | [address] | | | | | | Phone: | [facility], [place] | | | | | | [phone] | [address] | | | | | | Fax: | Phone: | | | | | | [phone] | [phone] | | | | | | | Fax: | | | | | | | [phone] | + + + + + + [...] Other | | 2017 | | [facility] | [address] | | | | | MEDICAL [facility] [address] | [place] [address] | | | | | [address] [place], | [phone] | | | | | [place] [address] | | | | | | [phone] | | | +--------+ + + + [...] | | | | | [place] [address] | | | | | | [phone] | | | | | | | | +--------+ + + + + | 10/30/ | Office | Primary Care | Erika Ernst, | | | 2019 | Visit | | DO [address] | | | | | | [place] [address] | | | | | | [phone] | | | | | | | [...] [place] | | | | | | [address] | | | | | | [phone] | | | | | | | | +--------+ + + + + | 02/09/ | Office | Neurology | Dhara, | | | 2019 | Visit | | DAWINE [address] | | | | | | [address] [place], | | | | | | [place] [address] | | | | | | [phone] | | | | | | | [...]
--- OUTSIDE RECORDS SUMMARY | ~2019-09-30 | XMS | Encounter Summary ---
Demographics + + + | Address | [address] | | | [place] [address] | + + + | Home Phone [...] Providers + +------+ + | Care Fixed Wing Aircraft Flight Engineer Name | Role | Phone | + +------+ + PCP | Unavailable | + +------+ + Encounter Details +--------+ + + + + | Date | Type | Department | Care Team | Description | +--------+ + + + + | 10/30/ | Hospital | [place] [facility] | Jenise Benitez, | | | 2015 | Encounter | HOSPITAL NURSERY | CAR LOT ATTENDANT [address] | | | | | [address] [place] | [place] [address] | | | | | [place], [place] | [phone] | | | | | [address] | | | | | | [phone] | | | +--------+ + + + [...] | | | | | [place] [address] | | | | | | [phone] | | | | | | | | +--------+ + + + + | 10/30/ | Office | Primary Care | Erika Ernst, | | | 2019 | Visit | | DO [address] | | | | | | [place] [address] | | | | | | [phone] | | | | | | | [...] [place] | | | | | | [address] | | | | | | [phone] | | | | | | | | +--------+ + + + + | 02/09/ | Office | Neurology | Dhara, | | | 2020 | Visit | | [address]WA[address] | | | | | | [address] [place], | | | | | | [place] [address] | | | | | | [phone] | | | | | | | | +--------+ + + + + documented as of this encounter Visit Diagnoses Not on filedocumented in this encounter"
--- OUTSIDE RECORDS SUMMARY | ~2019-09-30 | XMS | Encounter Summary ---
Demographics + + + | Address | [address] | | | [place] [address] | + + + | Home Phone [...] Team Providers + +------+ + | Care Lining Maker Name | Role | Phone | [...] | Visit | [facility] | PARCEL POST WEIGHER-NET APPLICATIONS DEVELOPER [address] | asthma with acute | | | | [facility] [address] | [address] [place] | exacerbation | | | | [address] [place], | [place] [address] | (Primary Dx) | | | | [place] [address] | [phone] | | | | | [phone] | | | +--------+---------+ + + + [...] and as needed inhalers Follow-up with your photographers' model as planned/needed If your symptoms persist or you develop fever, chest pain or shortness of breath follow up immediately for reevaluation. documented in this encounter Progress Notes Alem Guerrero, PARCEL POST WEIGHER-NET APPLICATIONS DEVELOPER - 07/01/2019 10:30 AM PDTFormatting of this [...] a fever/chills, n/v/d Says she saw her photographers' model last and he took her off the [...] mouth. Once a week Cholecalciferol (VITAMIN D3) 55930 units TABS Take 1 tablet by mouth [...] and as needed inhalers Follow-up with your photographers' model as planned/needed If your symptoms persist or you develop fever, chest pain or shortness of breath follow up immediately for reevaluation. Return if symptoms worsen or fail to improve, for with pcp. Electronically signed by: Alem Guerrero [id number] [facility] Note: Part of this report was transcribed using voice recognition software. Every effort wa s made to ensure accuracy. However, inadvertent computerized school adjustment counselor errors may be pre sent. Linh rubin [...] [address] | | | | | | [phone] | | | | | | | | +--------+ + + + + | 10/30/ | Office | Primary Care | Erika Ernst, | | | 2019 | Visit | | DO [address] | | | | | | [place] [address] | | | | | | [phone] | | | | | | | [...] [place] | | | | | | [address] | | | | | | [phone] | | | | | | | | +--------+ + + + + | 02/09/ | Office | Neurology | Dhara, | | | 2019 | Visit | | DWA[address] | | | | | | [address] [place], | | | | | | [place] [address] | | | | | | [phone] | | | | | | | [...]
--- OUTSIDE RECORDS SUMMARY | ~2019-09-30 | XMS | Encounter Summary ---
Demographics + + + | Address | [address] | | | [place] [address] | + + + | Home Phone [...] Team Providers + +------+ + | Care Rod Pointer Name | Role | Phone | + [...] [address] [place] | [place] [address] | | | | | [place], [place] | [phone] | | | | | [address] | | | | | | [phone] | | | +--------+ + + + [...] | 11/26/19 | | | (VITAMIN D3) 75244 | mouth Once a week | tablet [...] | | | | | [place] [address] | | | | | | [phone] | | | | | | | | +--------+ + + + + | 10/30/ | Office | Primary Care | Erika Ernst, | | | 2019 | Visit | | DO [address] | | | | | | [place] [address] | | | | | | [phone] | | | | | | | [...] [place] | | | | | | [address] | | | | | | [phone] | | | | | | | | +--------+ + + + + | 02/09/ | Office | Neurology | Dhara, | | | 2019 | Visit | | DWAINE Ross [address] | | | | | | [address] [place], | | | | | | [place] [address] | | | | | | [phone] | | | | | | | [...]
--- OUTSIDE RECORDS SUMMARY | ~2019-09-30 | XMS | Encounter Summary ---
Demographics + + + | Address | [address] | | | [place] [address] | + + + | Home Phone [...] Team Providers + +------+ + | Care Brush Worker Name | Role | Phone | + +------+ + PCP | Unavailable | + +------+ + Encounter Details +--------+ + + + + | Date | Type | Department | Care Team | Description | +--------+ + + + + | 06/18/ | Hospital | [place] [facility] | Heather Yip, | | | 2016 | Encounter | HOSPITAL NURSERY | PAINTER SET [address] | | | | | [address] [place] | [place] [address] | | | | | [place], [place] | [phone] | | | | | [address] | | | | | | [phone] | | | +--------+ + + + [...] [address] | | | | | | [phone] | | | | | | | | +--------+ + + + + | 10/30/ | Office | Primary Care | Erika Ernst, | | | 2019 | Visit | | DO [address] | | | | | | [place] [address] | | | | | | [phone] | | | | | | | [...] [place] | | | | | | [address] | | | | | | [phone] | | | | | | | | +--------+ + + + + | 02/09/ | Office | Neurology | Dhara, | | | 2019 | Visit | | DWIANE Ross [address] | | | | | | [address] [place], | | | | | | [place] [address] | | | | | | [phone] | | | | | | | | +--------+ + + + + documented as of this encounter Visit Diagnoses Not on filedocumented in this encounter"
--- OUTSIDE RECORDS SUMMARY | ~2019-09-30 | XMS | Encounter Summary ---
Demographics + + + | Address | [address] | | | [place] [address] | + + + | Home Phone [...] Team Providers + +------+ + | Care Driver'S License Examiner Name | Role | Phone | [...] foot surgery | [place] | [address] | | | | | Swelling | [place], [place] | Phone: | | | | | of foot | [address] | [phone] | | | | | joint, right | Phone: | Fax: | | | | | Procedures | [phone] | [phone] | | | | | MRI Foot | Fax: | | | | | | Right wo | [phone] | | | | | | Contrast [...] Closed | | Radiology | Diagnoses | Herron, | Cc Wgr Xray | | | | | Right foot | Herbert L, | [address] | | | | | pain Status | [address] | | | | | post right | [address] | [place], [place] | | | | | foot surgery | [place] | [address] | | | | | Swelling | [place], [place] | Phone: | | | | | of foot | [address] | [phone] | | | | | joint, right | Phone: | Fax: | | | | | Procedures | [phone] | [phone] | | | | | MRI Foot | Fax: | | | | | | Right wo | [phone] | | | | | | Contrast | | | +--------+--------+ + + + + Encounter Details +--------+ + + + + | Date | Type | Department | Care Team | Description | +--------+ + + + + | 09/20/ | Hospital | [place] [facility] | Herbert Herron | Right foot pain; | | 2019 | Encounter | Hospital MRI [address] | Status post right | | | | [address] [place] | [place], | foot surgery; | | | | [place], [place] | [place] [address] | Swelling of foot | | | | [address] | [phone] | joint, right | | | | [phone] | | | +--------+ + + + [...] mcg daily | 30 | 11 | / | | | (SYNTHROID) 50 [...] [address] | | | | | | [phone] | | | | | | | | +--------+ + + + + | 10/30/ | Office | Primary Care | Erika Ernst, | | | 2019 | Visit | | DO [address] | | | | | | [place] [address] | | | | | | [phone] | | | | | | | [...] [place] | | | | | | [address] | | | | | | [phone] | | | | | | | | +--------+ + + + + | 02/09/ | Office | Neurology | Dhara, | | | 2019 | Visit | | [address]WAINE [address] | | | | | | [address]TH [facility], | | | | | | [place] [address] | | | | | | [phone] | | | | | | | [...] | | history of Kidner procedure performed [place] 2015. The findings on | | | [...] [facility], 09/19/19 | | describes history of Kidner procedure performed [place]. The findings on the current | | [...] navicula. Note from Jeffrey Gandhi MD, [facility], 09/19/19 describes history of Kidner procedure performed [place] 2015. The findings on the current study [...]
--- OUTSIDE RECORDS SUMMARY | ~2019-09-30 | XMS | Encounter Summary ---
Demographics + + + | Address | [address] | | | [place] [address] | + + + | Home Phone [...] Providers + +------+ + | Care Service Station Cashier Name | Role | Phone | [...] | [place], [place] | [place] [address] | | | | | [address] | [phone] | | | | | [phone] | | | +--------+ + + + [...] | | | | | [place] [address] | | | | | | [phone] | | | | | | | | +--------+ + + + + | 10/30/ | Office | Primary Care | Erika Ernst, | | | 2019 | Visit | | DO [address] | | | | | | [place] [address] | | | | | | [phone] | | | | | | | [...] [place] | | | | | | [address] | | | | | | [phone] | | | | | | | | +--------+ + + + + | 02/09/ | Office | Neurology | Dhara, | | | 2019 | Visit | | DWAINE Ross [address] | | | | | [address] [place], | | | | | | [place] [address] | | | | | | [phone] | | | | | | | | +--------+ + + + + documented as of this encounter Visit Diagnoses Not on filedocumented in this encounter"
--- OUTSIDE RECORDS SUMMARY | ~2019-09-30 | XMS | Encounter Summary ---
Demographics + + + | Address | [address] | | | [place] [address] | + + + | Home Phone [...] Providers + +------+ + | Care Criminal Justice Faculty Name | Role | Phone | + [...] | [address] | | | | | [address] | | | | | | [phone] | | | +--------+--------+ + + + [...] | | | | | [place] [address] | | | | | | [phone] | | | | | | | | +--------+ + + + + | 10/30/ | Office | Primary Care | Erika Ernst, | | | 2019 | Visit | | DO [address] | | | | | | [place] [address] | | | | | | [phone] | | | | | | | [...] [place] | | | | | | [address] | | | | | | [phone] | | | | | | | | +--------+ + + + + | 02/09/ | Office | Neurology | Dhara, | | | 2019 | Visit | | Karyanne, MUSHROOM CULTIVATOR [address] | | | | | [address] [place], | | | | | | [place] [address] | | | | | | [phone] | | | | | | | | +--------+ + + + + documented as of this encounter Visit Diagnoses Not on filedocumented in this encounter"
--- OUTSIDE RECORDS SUMMARY | ~2019-09-30 | XMS | Encounter Summary ---
Demographics + + + | Address | [address] | | | [place] [address] | + + + | Home Phone [...] Providers + +------+ + | Care Supervisor [employer] Elements Name | Role | Phone | + [...] [facility] | DO [address] | Dx); Asthma due to | | | | MEDICAL [facility] [address] | [place] [address] | environmental | | | | [address] [place], | [phone] | allergies | | | | [place] [address] | | | | | | [phone] | | | +--------+---------+ + + + [...] weeks ago and went to ER in [place] but has recovered. No chest pain or [...] | | | | | [place] [address] | | | | | | [phone] | | | | | | | | +--------+ + + + + | 10/30/ | Office | Primary Care | Erika Ernst, | | | 2019 | Visit | | DO [address] | | | | | | [place] [address] | | | | | | [phone] | | | | | | | [...] [place] | | | | | | [address] | | | | | | [phone] | | | | | | | | +--------+ + + + + | 02/09/ | Office | Neurology | Dhara, | | | 2020 | Visit | | DWAINE [address] | | | | | | 4TH [facility] [place], | | | | | | [place] [address] | | | | | | [phone] | | | | | | | | +--------+ + + + + documented as of this encounter Visit Diagnoses + + | Diagnosis | + + | Sunburn - Primary | + + | Asthma due to environmental allergies | + + documented in this encounter
--- OUTSIDE RECORDS SUMMARY | ~2019-09-30 | XMS | Encounter Summary ---
Demographics + + + | Address | [address] | | | [place] [address] | + + + | Home Phone [...] Providers + +------+ + | Care Metal Patternmaker Apprentice Name | Role | Phone | [...] | | | [place] TREAT | [place] [address] | [place] [address] | | | | | | Phone: | Phone: | | | | | | [phone] | [phone] | | | | | | Fax: | Fax: | | | | | | [phone] | [phone] | +--------+--------+ + + + + Encounter [...] [address] [place] | [place] [address] | | | | | [place], [place] | [phone] | | | | | [address] | | | | | | [phone] | Celia Washington, PT | | +--------+ [...] | 11/26/19 | | | (VITAMIN D3) 1946[address] | mouth Once a week | tablet [...] might be different fr om the original. [facility] [address] [place] [address] Physical Therapy Daily Treatment Note Date: 01/09/2019 [...] with blue theraband; SLS. Ongoing: Wall sits [id number] holds, Bridging 3 x 10 reps, Side [...] | | | | | [place] [address] | | | | | | [phone] | | | | | | | | +--------+ + + + + | 10/30/ | Office | Primary Care | Erika Ernst, | | | 2019 | Visit | | DO [address] | | | | | | [place] [address] | | | | | | [phone] | | | | | | | [...] [place] | | | | | | [address] | | | | | | [phone] | | | | | | | | +--------+ + + + + | 02/09/ | Office | Neurology | Dhara, | | | 2019 | Visit | | [address]WAINE Ross [address] | | | | | | [address]TH [place], | | | | | | [place] [address] | | | | | | [phone] | | | | | | | | +--------+ + + + + documented as of this encounter Visit Diagnoses + + | Diagnosis | + + | Acute pain of right knee - Primary | + + documented in this encounter"
--- OUTSIDE RECORDS SUMMARY | ~2019-09-30 | XMS | Encounter Summary ---
Demographics + + + | Address | [address] | | | [place] [address] | + + + | Home Phone [...] Team Providers + +------+ + | Care Postage Machine Operator Name | Role | Phone [...] | | | | severe | [place] [address] | [place] | | | | | obesity due | Phone: | [address] | | | | | to excess | [phone] | Phone: | | | | | calories | Fax: | [phone] | | | | | without | [phone] | Fax: | | | | | serious | | [phone] | | | | | comorbidity | [...] + | 11/19/ | Hospital | [place] [facility] | Erika Ernst, | Essential | | 2019 | Encounter | HOSPITAL NUTRITION | DO [address] | hypertension; Class | | | | SERVICES [address] | [place] [address] | 3 severe obesity due | | | | DR [place], [place] | [phone] | to excess calories | | | | [address] | | without serious | | | | [phone] | Janel Webster, | comorbidity with | [...] | | | | | [place] [address] | | | | | | [phone] | | | | | | | | +--------+ + + + + | 10/30/ | Office | Primary Care | Erika Ernst, | | | 2019 | Visit | | DO [address] | | | | | | [place] [address] | | | | | | [phone] | | | | | | | [...] [place] | | | | | | [address] | | | | | | [phone] | | | | | | | | +--------+ + + + + | 02/09/ | Office | Neurology | Dhara, | | | 2019 | Visit | | DWAINE Ross [address] | | | | [address] [place], | | | | | | [place] [address] | | | | | | [phone] | | | | | | | | +--------+ + + + + + + +--------+ + + | Name | Type | Priori | Associated Diagnoses | Order Schedule | | | | ty | | | + + +--------+ + + | * [facility] [facility] | Outpatient | Routin | Essential [...]
--- OUTSIDE RECORDS SUMMARY | ~2019-09-30 | XMS | Encounter Summary ---
Demographics + + + | Address | [address] | | | [place] [address] | + + + | Home Phone [...] Team Providers + +------+ + | Care Bistro Attendant Name | Role | Phone | + +------+ + PCP | Unavailable | + +------+ + Encounter Details +--------+ + + + + | Date | Type | Department | Care Team | Description | +--------+ + + + + | 02/07/ | [facility] | Spenser Roberts NP | | | 2014 | Encounter | [facility] | [address] [place], | | | | | MEDICAL CLIN[facility] [address] | [place] [address] | | | | | [address]TH [facility], | [phone] | | | | | [place] [address] | | | | | | [phone] | | | +--------+ + + + [...] | | | | | [place] [address] | | | | | | [phone] | | | | | | | | +--------+ + + + + | 10/30/ | Office | Primary Care | Erika Ernst, | | | 2019 | Visit | | DO [address] [place] | | | | | | [place] [address] | | | | | | [phone] | | | | | | | [...] [place] | | | | | | [address] | | | | | | [phone] | | | | | | | | +--------+ + + + + | 02/09/ | Office | Neurology | Dhara, | | | 2020 | Visit | | DWAINE Ross [address] | | | | | [address] [place], | | | | | | [place] [address] | | | | | | [phone] | | | | | | | | +--------+ + + + + documented as of this encounter Visit Diagnoses Not on filedocumented in this encounter"
--- OUTSIDE RECORDS SUMMARY | ~2019-09-30 | XMS | Encounter Summary ---
Demographics + + + | Address | [address] | | | [place] [address] | + + + | Home Phone [...] Team Providers + +------+ + | Care Etl Tester Name | Role | Phone | [...] | | | | [place], [place] | [address] | | | | | [address] | [phone] | | | | | [phone] | | | +--------+ + + + [...] | | | | | [place] [address] | | | | | | [phone] | | | | | | | | +--------+ + + + + | 10/30/ | Office | Primary Care | Erika Ernst, | | | 2019 | Visit | | DO [address] [place] | | | | | | [place] [address] | | | | | | [phone] | | | | | | | | +--------+ + + + + | 11/07/ | Appointment | Nutrition | Janel Webtser | | | 2019 | | | [place] | | +--------+ + + + + | 11/28/ | Office | Otolaryngology | Anthony Alvarado MD | | | 2019 | Visit | | [address] [place] | | | | | | [place], [place] | | | | | | [address] | | | | | | [phone] | | | | | | | | +--------+ + + + + | 02/09/ | Office | Neurology | Dhara, | | | 2019 | Visit | | [address]WAINE Ross [address] | | | | | [address] [place], | | | | | | [place] [address] | | | | | | [phone] | | | | | | | [...]
--- OUTSIDE RECORDS SUMMARY | ~2019-09-30 | XMS | Encounter Summary ---
Demographics + + + | Address | [address] | | | [place] [address] | + + + | Home Phone [...] Team Providers + +------+ + | Care Metrologist Name | Role | Phone | + [...] Sinusitis | | 2019 | | [facility] | DO [address] | | | | | MEDICAL CLINIC [address] | [place] [address] | | | | | [address] [place], | [phone] | | | | | [place] [address] | | | | | | [phone] | | | +--------+ + + + [...] | | | | | [place] [address] | | | | | | [phone] | | | | | | | | +--------+ + + + + | 10/30/ | Office | Primary Care | Erika Ernst, | | | 2019 | Visit | | DO [address] [facility] | | | | | | [place] [address] | | | | | | [phone] | | | | | | | [...] [place] | | | | | | [address] | | | | | | [phone] | | | | | | | | +--------+ + + + + | 02/09/ | Office | Neurology | Dhara, | | | 2019 | Visit | | [address]WA[address] | | | | | | [address] [place], | | | | | | [place] [address] | | | | | | [phone] | | | | | | | | +--------+ + + + + documented as of this encounter Visit Diagnoses Not on filedocumented in this encounter"
--- OUTSIDE RECORDS SUMMARY | ~2019-09-30 | XMS | Encounter Summary ---
Demographics + + + | Address | [address] | | | [place] [address] | + + + | Home Phone [...] Providers + +------+ + | Care Financial Systems Administrator Name | Role | Phone | + +------+ + PCP | Unavailable | + +------+ + Encounter Details +--------+ + + + + | Date | Type | Department | Care Team | Description | +--------+ + + + + | 08/17/ | [facility] | Denise Mcgregor | | | 2016 | Encounter | [facility]OSPITAL [facility] | G, OUTBOUND SALES AGENT [address] | | | | | [address] [place] | [place] | | | | | [place] | [address] | | | | | [address] | [phone] | | | | | [phone] | | | +--------+ + + + [...] | | | | | [place] [address] | | | | | | [phone] | | | | | | | | +--------+ + + + + | 10/30/ | Office | Primary Care | Erika Ernst, | | | 2019 | Visit | | DO [address] [place] | | | | | | [place] [address] | | | | | | [phone] | | | | | | | [...] [place] | | | | | | [address] | | | | | | [phone] | | | | | | | | +--------+ + + + + | 02/09/ | Office | Neurology | Dhara, | | | 2019 | Visit | | DWAINE Ross [address] | | | | [address] [place], | | | | | | [place] [address] | | | | | | [phone] | | | | | | | [...]
--- OUTSIDE RECORDS SUMMARY | ~2019-09-30 | XMS | Encounter Summary ---
Demographics + + + | Address | [address] | | | [place] [address] | + + + | Home Phone [...] Providers + +------+ + | Care District Ranger Name | Role | Phone | + +------+ + | Erika Ernst DO | PCP | | + +------+ + Encounter Details +--------+ + + + + | Date | Type | Department | Care Team | Description | +--------+ + + + + | 07/04/ | Abstract | [facility] | Erika Ernst, | | | 2017 | | [address] | | | | | [facility] | [place] [address] | | | | | [address] [facility] [place], | [phone] | | | | | [place] [address] | | | | | | [phone] | | | +--------+ + + + [...] | | | | | [place] [address] | | | | | | [phone] | | | | | | | | +--------+ + + + + | 10/30/ | Office | Primary Care | Erika Ernst, | | | 2019 | Visit | | DO [address] | | | | | | [place] [address] | | | | | | [phone] | | | | | | | [...] [place] | | | | | | [address] | | | | | | [phone] | | | | | | | | +--------+ + + + + | 02/09/ | Office | Neurology | Dh[place], | | | 2019 | Visit | | [address] [place], | | | | | | [place] [address] | | | | | | [phone] | | | | | | | [...]
--- OUTSIDE RECORDS SUMMARY | ~2019-09-30 | XMS | Encounter Summary ---
Demographics + + + | Address | [address] | | | [place] [address] | + + + | Home Phone [...] Providers + +------+ + | Care Assistant Refinery Operator Name | Role | Phone | [...] foot surgery | [place] | [address] | | | | | Swelling | [place], [place] | Phone: | | | | | of foot | [address] | [phone] | | | | | joint, right | Phone: | Fax: | | | | | Procedures | [phone] | [phone] | | | | | MRI Foot | Fax: | | | | | | Right wo | [phone] | | | | | | Contrast [...] Closed | | Radiology | Diagnoses | Herrno, | Cc Wgr Xray | | | | | Right foot | Herbert L, | [address] | | | | | pain Status | [place] [address] | [address] [place] | | | | | post right | [address] | [place], [place] | | | | | foot surgery | [place] | [address] | | | | | Swelling | [place], [place] | Phone: | | | | | of foot | [address] | [phone] | | | | | joint, right | Phone: | Fax: | | | | | Procedures | [phone] | [phone] | | | | | MRI Foot | Fax: | | | | | | Right wo | [phone] | | | | | | Contrast [...] | | | [place], [place] | [place] [address] | Swelling of foot | | | | [address] | [phone] | joint, right | | | | [phone] | | | +--------+ + + + [...] | | | | | [place] [address] | | | | | | [phone] | | | | | | | | +--------+ + + + + | 10/30/ | Office | Primary Care | Erika Ernst, | | | 2019 | Visit | | DO [address] [place] | | | | | | [place] [address] | | | | | | [phone] | | | | | | | [...] [place] | | | | | | [address] | | | | | | [phone] | | | | | | | | +--------+ + + + + | 02/09/ | Office | Neurology | Dhara, | | | 2019 | Visit | | [address] | | | | | | [address]TH [facility], | | | | | | [place] [address] | | | | | | [phone] | | | | | | | [...] [facility] | | Jeffrey Gandhi MD, [facility], 09/19/19 describes | | | history of Kidner procedure performed [place]. The findings on | | | [...] medial navicula. Note from Jeffrey Gandhi MD, [facility], 09/19/19 | | describes history of Kidner procedure performed [place]. The findings on the current | | [...] medial navicula. Note from Jeffrey Gandhi MD, [facility] [place], operated by [facility], 09/19/19 describes history of Kidner procedure performed [place] 2015. The findings on the current study [...]
--- OUTSIDE RECORDS SUMMARY | ~2019-09-30 | XMS | Encounter Summary ---
Demographics + + + | Address | [address] | | | [place] [address] | + + + | Home Phone [...] Providers + +------+ + | Care Draw Press Operator Name | Role | Phone [...] | [facility] | [place] [address] | | | | [address] [place], | [phone] | | | | | [place] [address] | | | | | | [phone] | | | +--------+ + + + [...] | | | | | [place] [address] | | | | | | [phone] | | | | | | | | +--------+ + + + + | 10/30/ | Office | Primary Care | Erika Ernst, | | | 2019 | Visit | | DO [address] [place] | | | | | | [place] [address] | | | | | | [phone] | | | | | | | [...] [place] | | | | | | [address] | | | | | | [phone] | | | | | | | | +--------+ + + + + | 02/09/ | Office | Neurology | Dhara, | | | 2019 | Visit | | [address] | | | | | | [address] [place], | | | | | | [place] [address] | | | | | | [phone] | | | | | | | | +--------+ + + + + documented as of this encounter Visit Diagnoses Not on filedocumented in this encounter"
--- OUTSIDE RECORDS SUMMARY | ~2019-09-30 | XMS | Encounter Summary ---
Demographics + + + | Address | [address] | | | [place] [address] | + + + | Home Phone [...] Providers + +------+ + | Care Video Software Engineer Name | Role | Phone | + +------+ + | Erika Ernst DO | PCP | | + +------+ + Reason for Visit + + + | Reason | Comments | + + + | Medication Related | Medication possible making BP to increase | + + + Encounter Details +--------+ + + + + | Date | Type | Department | Care Team | Description | +--------+ + + + + | 05/13/ | Telephone | [facility] | Erika Ernst, | Medication Related | | 2019 | | [facility] | [address] | (Medication possible | | | | MEDICAL CLINIC [address] [place] [address] | making BP to | | | | [address] [place], | [phone] | increase) | | | | [place] [address] | | | | | | [phone] | | | +--------+ + + + [...] | | | | | [place] [address] | | | | | | [phone] | | | | | | | | +--------+ + + + + | 10/30/ | Office | Primary Care | rEika Ernst, | | | 2019 | Visit | | DO [address] [place] | | | | | | [place] [address] | | | | | | [phone] | | | | | | | [...] [place] | | | | | | [address] | | | | | | [phone] | | | | | | | | +--------+ + + + + | 02/09/ | Office | Neurology | Dhara, | | | 2019 | Visit | | [address] | | | | | | [address] [place], | | | | | | [place] [address] | | | | | | [phone] | | | | | | | | +--------+ + + + + documented as of this encounter Visit Diagnoses Not on filedocumented in this encounter"
--- OUTSIDE RECORDS SUMMARY | ~2019-09-30 | XMS | Encounter Summary ---
Demographics + + + | Address | [address] | | | [place] [address] | + + + | Home Phone [...] Team Providers + +------+ + | Care Bioinformatics Specialist Name | Role | Phone | [...] 2019 | | HOSPITAL [facility] | C, MULTIMEDIA SERVICES COORDINATOR [address] | (Primary Dx) | | | | CENTER [address] | [address] [place] | | | | | [place] | [address] | | | | | [address] | | | | | | [phone] | | | +--------+ + + + [...] | | | | | [place] [address] | | | | | | [phone] | | | | | | | | +--------+ + + + + | 10/30/ | Office | Primary Care | Erika Ernst, | | | 2019 | Visit | | DO [address] [place] | | | | | | [place] [address] | | | | | | [phone] | | | | | | | [...] [place] | | | | | | [address] | | | | | | [phone] | | | | | | | | +--------+ + + + + | 02/09/ | Office | Neurology | Dhara, | | | 2019 | Visit | | [address] | | | | | | [address] [place], | | | | | | [place] [address] | | | | | | [phone] | | | | | | | [...] C?MRN: | | | | | | [id number] | | | [id number] | | | riteri | | | [...]
--- OUTSIDE RECORDS SUMMARY | ~2019-09-30 | XMS | Encounter Summary ---
Demographics + + + | Address | [address] | | | [place] [address] | + + + | Home Phone [...] Team Providers + +------+ + | Care Management Lead Name | Role | Phone | [...] | | | [place], [place] | [address] | | | | | [address] | | | | | | [phone] | | | +--------+ + + + [...] | | | | | [place] [address] | | | | | | [phone] | | | | | | | | +--------+ + + + + | 10/30/ | Office | Primary Care | Erika Ernst, | | | 2019 | Visit | | DO [address] [place] | | | | | | [place] [address] | | | | | | [phone] | | | | | | | [...] [place] | | | | | | [address] | | | | | | [phone] | | | | | | | | +--------+ + + + + | 02/09/ | Office | Neurology | Dhara, | | | 2019 | Visit | | [address] | | | | | | [address] [place], | | | | | | [place] [address] | | | | | | [phone] | | | | | | | | +--------+ + + + + documented as of this encounter Visit Diagnoses Not on filedocumented in this encounter"
--- OUTSIDE RECORDS SUMMARY | ~2019-09-30 | XMS | Encounter Summary ---
Demographics + + + | Address | [address] | | | [place] [address] | + + + | Home Phone [...] Providers + +------+ + | Care Manager Laboratory Name | Role | Phone | + +------+ + PCP | Unavailable | + +------+ + Encounter Details +--------+ + + + + | Date | Type | Department | Care Team | Description | +--------+ + + + + | 09/21/ | [facility] | Heike Rordiguez, | | | 2013 | Encounter | HOSPITAL EM[facility] | FINANCIAL REPORTING MANAGER [address] | | | | | CENTER [address] | [place] | | | | | [place] | [address] | | | | | [address] | | | | | | [phone] | | | +--------+ + + + [...] | | | | | [place] [address] | | | | | | [phone] | | | | | | | | +--------+ + + + + | 10/30/ | Office | Primary Care | Erika Ernst, | | | 2019 | Visit | | DO [address] [place] | | | | | | [place] [address] | | | | | | [phone] | | | | | | | [...] [place] | | | | | | [address] | | | | | | [phone] | | | | | | | | +--------+ + + + + | 02/09/ | Office | Neurology | Dhara, | | | 2020 | Visit | | [address] | | | | | | [address] [place], | | | | | | [place] [address] | | | | | | [phone] | | | | | | | | +--------+ + + + + documented as of this encounter Visit Diagnoses Not on filedocumented in this encounter"
--- OUTSIDE RECORDS SUMMARY | ~2019-09-30 | XMS | Encounter Summary ---
Demographics + + + | Address | [address] | | | [place] [address] | + + + | Home Phone [...] Providers + +------+ + | Care Supervisor Estimator And Drafter Name | Role | Phone | [...] Travis Malone FNP | S/P right [facility] | | 2019 | Visit | HOSPITAL [facility] | [address] [place] | tenosynovectomy on | | | | [address] [place] F | F [place], [place] | 03/20/19 | | | | [place], [place] | [address] | | | | | [address] | [phone] | | | | | [phone] | | | +--------+---------+ + + + [...] number, which will [facility] at the hospital and ask for the consular officer orthopedic provider. Be sure to mention t hat you've had surgery recently. documented in this encounter Progress Notes Travis Malone FNP - 03/26/2019 10:40 AM PDT Orthopedic Postoperative Note Patient Name: Andrea Suh | Age: 28 y.o. | : 1990 | Medical Record Number:[id number] | Author: MOHSEN Martinez | Date of Encounter: 03/26/2019 Surgeon: Inocencio Noriega MD History of present illness Andrea Suh is a 28 y.o. female that follows up in the office 1 week status post [facility]U tendon tenosynovectomy reporting no significant concerns [...] Maternal Grandmother Heart attack Maternal Aunt [place] Social History Tobacco Use Smoking status: Never [...] and their vital signs recorded by my administrative assistant data entry today, a s found in this chart note. Electronically signed by: MOHSEN Martinez 03/26/2019 at 10:55 Note: Part of this report was transcribed using voice recognition software. Every effort wa s made to ensure accuracy. However, inadvertent computerized archeology faculty member errors may be pre sent. CC: Erika [...] | | | | | [place] [address] | | | | | | [phone] | | | | | | | | +--------+ + + + + | 10/30/ | Office | Primary Care | Erika Ernst, | | | 2019 | Visit | | [place] [address] [place] [address] | | | | | | [place] [address] | | | | | | [phone] | | | | | | | [...] [place] | | | | | | [address] | | | | | | [phone] | | | | | | | | +--------+ + + + + | 02/09/ | Office | Neurology | Dhara, | | | 2019 | Visit | | [address] | | | | | | [address]TH [facility], | | | | | | [place] [address] | | | | | | [phone] | | | | | | | | +--------+ + + + + documented as of this encounter Visit Diagnoses + + | Diagnosis | + + | S/P right ECU tenosynovectomy on 03/20/19 | + + documented in this encounter"
--- OUTSIDE RECORDS SUMMARY | ~2019-09-30 | XMS | Encounter Summary ---
Demographics + + + | Address | [address] | | | [place] [address] | + + + | Home Phone [...] Team Providers + +------+ + | Care Pipeliner Name | Role | Phone | + [...] [address] | [facility] [place] [address] | | | | | [address] [place], | [phone] | | | | | [place] [address] | | | | | | [phone] | | | +--------+ + + + [...] | | | | | [place] [address] | | | | | | [phone] | | | | | | | | +--------+ + + + + | 10/30/ | Office | Primary Care | Erika Ernst, | | | 2019 | Visit | | DO [address] | | | | | | [place] [address] | | | | | | [phone] | | | | | | | [...] [place] | | | | | | [address] | | | | | | [phone] | | | | | | | | +--------+ + + + + | 02/09/ | Office | Neurology | Dhara, | | | 2020 | Visit | | [address] | | | | | | [address] [place], | | | | | | [place] [address] | | | | | | [phone] | | | | | | | | +--------+ + + + + documented as of this encounter Visit Diagnoses Not on filedocumented in this encounter"
--- OUTSIDE RECORDS SUMMARY | ~2019-09-30 | XMS | Encounter Summary ---
Demographics + + + | Address | [address] | | | [place] [address] | + + + | Home Phone [...] Team Providers + +------+ + | Care Map Colorer Name | Role | Phone | + [...] | | | | s (de | [place], [place] | [place] [address] | | | | | quervain) | [address] | Phone: | | | | | Pain in | Phone: | [phone] | | | | | right wrist | [phone] | Fax: | | | | | Procedures | Fax: | [phone] | | | | | OT TREAT | [phone] | | +--------+--------+ + + + + [...] | | [address] [place] | [place] [address] | wrist pain | | | | [place] | [phone] | | | | | [address] | | | | | | [phone] | Milla Grcaia, OT | | +--------+ + + + [...] Gracia OT - 08/10/2018 10:[address] [facility] OT [address] [place] [address] Occupational Therapy Daily Treatment Note Date: 08/09/2018 [...] wrist and deviating to ulnar side to roller picker cup. 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 [...] | | | | | [place] [address] | | | | | | [phone] | | | | | | | | +--------+ + + + + | 10/30/ | Office | Primary Care | Erika Ernst, | | | 2019 | Visit | | DO [address] [place] | | | | | | [place] [address] | | | | | | [phone] | | | | | | | [...] [place] | | | | | | [address] | | | | | | [phone] | | | | | | | | +--------+ + + + + | 02/09/ | Office | Neurology | Dhara, | | | 2020 | Visit | | [address] | | | | | | [address] [place], | | | | | | [place] [address] | | | | | | [phone] | | | | | | | | +--------+ + + + + documented as of this encounter Visit Diagnoses + + | Diagnosis | + + | Radial styloid tenosynovitis | + + | Right wrist pain Pain in joint, forearm | + + documented in this encounter"
--- OUTSIDE RECORDS SUMMARY | ~2019-09-30 | XMS | Encounter Summary ---
Demographics + + + | Address | [address] | | | [place] [address] | + + + | Home Phone [...] Team Providers + +------+ + | Care Blindstitch Hemmer Name | Role | Phone | + [...] | | | of left | [place] [address] | [place] [address] | | | | | ankle, | Phone: | Phone: | | | | | initial | [phone] | [phone] | | | | | encounter | Fax: | Fax: | | | | | Procedures | [phone] | [phone] | | | | | PT TREAT [...] [address] [place] | [place] [address] | encounter (Primary | | | | [place], [place] | [phone] | Dx) | | | | [address] | | | | | | [phone] | Nick Barrios I, PT | | [...] might be different fro m the original. [facility] PT [address] [place] [address] Physical Therapy Daily Treatment Note Date: 10/05/2018 [...] in favor of SL heel raise with SILVERING APPLICATOR. ONGOING: SLS on even surfac e 3x30 [...] | | | | | [place] [address] | | | | | | [phone] | | | | | | | | +--------+ + + + + | 10/30/ | Office | Primary Care | Erika Ernst, | | | 2019 | Visit | | DO [address] [place] | | | | | | [place] [address] | | | | | | [phone] | | | | | | | [...] [place] | | | | | | [address] | | | | | | [phone] | | | | | | | | +--------+ + + + + | 02/09/ | Office | Neurology | Dhara, | | | 2019 | Visit | | [address] | | | | | [address] [place], | | | | | | [place] [address] | | | | | | [phone] | | | | | | | | +--------+ + + + + documented as of this encounter Visit Diagnoses + + | Diagnosis | + + | Sprain of left ankle, subsequent encounter - Primary | + + documented in this encounter
--- OUTSIDE RECORDS SUMMARY | ~2019-09-30 | XMS | Encounter Summary ---
Demographics + + + | Address | [address] | | | [place] [address] | + + + | Home Phone [...] Providers + +------+ + | Care District Sales Representative Name | Role | Phone [...] | [facility] [address] | [place] [address] | (Primary Dx); | | | | [address] [place], | [phone] | Depression, | | | | [place] [address] | | unspecified | | | | [phone] | | depression type; | | | [...] week and went to the ER in [place] and had a steroid injection. She is [...] | | | | | [place] [address] | | | | | | [phone] | | | | | | | | +--------+ + + + + | 10/30/ | Office | Primary Care | Erika Ernst, | | | 2019 | Visit | | DO [address] [place] | | | | | | [place] [address] | | | | | | [phone] | | | | | | | [...] [place] | | | | | | [address] | | | | | | [phone] | | | | | | | | +--------+ + + + + | 02/09/ | Office | Neurology | Dhara, | | | 2020 | Visit | | [address] | | | | | | [address] [place], | | | | | | [place] [address] | | | | | | [phone] | | | | | | | [...]
--- OUTSIDE RECORDS SUMMARY | ~2019-09-30 | XMS | Encounter Summary ---
Demographics + + + | Address | [address] | | | [place] [address] | + + + | Home Phone [...] Team Providers + +------+ + | Care Plateman Name | Role | Phone | + [...] | | | | severe | [place] [address] | [place] | | | | | obesity due | Phone: | [address] | | | | | to excess | [phone] | Phone: | | | | | calories | Fax: | [phone] | | | | | without | [phone] | Fax: | | | | | serious | | [phone] | | | | | comorbidity | [...] | | | | | | | AR MED NUTR | | | | | | | THER, 1ST, | | | | | | | INDIV, EA 15 | | | | | | | MIN AR MED | | | | | | [...] | SERVICES [address] | [place] [address] | 3 severe obesity due | | | | DR [place], [place] | [phone] | to excess calories | | | | [address] | | without serious | | | | [phone] | Janel [place], | comorbidity with | [...] | | | | | [place] [address] | | | | | | [phone] | | | | | | | | +--------+ + + + + | 10/30/ | Office | Primary Care | Erika Ernst, | | | 2019 | Visit | | DO [address] [place] | | | | | | [place] [address] | | | | | | [phone] | | | | | | | [...] [place] | | | | | | [address] | | | | | | [phone] | | | | | | | | +--------+ + + + + | 02/09/ | Office | Neurology | Dhara, | | | 2019 | Visit | | [address] | | | | | | [address] [place], | | | | | | [place] [address] | | | | | | [phone] | | | | | | | [...]
--- OUTSIDE RECORDS SUMMARY | ~2019-09-30 | XMS | Encounter Summary ---
Demographics + + + | Address | [address] | | | [place] [address] | + + + | Home Phone [...] Team Providers + +------+ + | Care Coil Assembler Name | Role | Phone | [...] | | 2018 | Visit | [facility] | [facility] [address] | exacerbation, | | | | MEDICAL CL[facility] [address] | [address] [place] | unspecified whether | | | | [address] [place], | [place] [address] | persistent (Primary | | | | [place] [address] | [phone] | Dx); Cough | | | | [phone] | | productive of | | | [...] - start antibiotic - keep appointment with Limo Driver next week - use cough medication PRN [...] to ensure accuracy. However, inadvertent computerized manager paid errors may be pre sent docasper mabry this encounter Plan of Treatment +--------+ + + + + | Date | Type | Specialty | Care Team | Description | +--------+ + + + + | 10/01/ | Office | Primary Care | Erika Ernst, | | | 2018 | Visit | | DO [facility] ST [place] | | | | | | [place] [address] | | | | | | [phone] | | | | | | | | +--------+ + + + + | 10/30/ | Office | Primary Care | Erika Ernst, | | | 2019 | Visit | | DO [address] [place] | | | | | | [place] [address] | | | | | | [phone] | | | | | | | [...] [place] | | | | | | [address] | | | | | | [phone] | | | | | | | | +--------+ + + + + | 02/09/ | Office | Neurology | Dhara, | | | 2019 | Visit | | [address] | | | | | | [address] [place], | | | | | | [place] [address] | | | | | | [phone] | | | | | | | | +--------+ + + + + documented as of this encounter Visit Diagnoses + + | Diagnosis | + + | Moderate asthma with exacerbation, unspecified whether persistent - Primary | + + | Cough productive of purulent sputum Cough | + + documented in this encounter"
--- OUTSIDE RECORDS SUMMARY | ~2019-09-30 | XMS | Encounter Summary ---
Demographics + + + | Address | [address] | | | [place] [address] | + + + | Home Phone [...] Team Providers + +------+ + | Care Wound Specialist Name | Role | Phone | [...] | | | of left | [place] [address] | [place] [address] | | | | | ankle, | Phone: | Phone: | | | | | initial | [phone] | [phone] | | | | | encounter | Fax: | Fax: | | | | | Procedures | [phone] | [phone] | | | | | PT TREAT | | | +--------+--------+ + + + + Encounter Details +--------+ + + + + | Date | Type | Department | Care Team | Description | +--------+ + + + + | 10/04/ | Hospital | [facility] | Erika Ernst, | Sprain of left | | 2018 | Encounter | HOSPITAL THERAPY PT | DO [address] [place] | ankle, subsequent | | | | [address] [place] | [place] [address] | encounter (Primary | | | | [place], [place] | [phone] | Dx); Fall on same | | | | [address] | | level from slipping, | | | | [phone] | Danial Tuttle | subsequent | | [...] might be differen t from the original. [facility] PT [address] [place] [address] Physical Therapy Daily Treatment Note Date: 10/04/2018 [...] the other pool when I go to [place]. A: We will do 1-2 more visits [...] | | | | | [place] [address] | | | | | | [phone] | | | | | | | | +--------+ + + + + | 10/30/ | Office | Primary Care | Erika Ernst, | | | 2019 | Visit | | DO [address] [place] | | | | | | [place] [address] | | | | | | [phone] | | | | | | | [...] [place] | | | | | | [address] | | | | | | [phone] | | | | | | | | +--------+ + + + + | 02/09/ | Office | Neurology | Dhara, | | | 2019 | Visit | | [address] | | | | | | [address] [place], | | | | | | [place] [address] | | | | | | [phone] | | | | | | | | +--------+ + + + + documented as of this encounter Visit Diagnoses + + | Diagnosis | + + | Sprain of left ankle, subsequent encounter - Primary | + + | Fall on same level from slipping, subsequent encounter | + + documented in this encounter"
--- OUTSIDE RECORDS SUMMARY | ~2019-09-30 | XMS | Encounter Summary ---
Demographics + + + | Address | [address] | | | [place] [address] | + + + | Home Phone [...] Team Providers + +------+ + | Care Clothing Cutter Name | Role | Phone | [...] | | | of left | [place] [address] | [place] [address] | | | | | ankle, | Phone: | Phone: | | | | | initial | [phone] | [phone] | | | | | encounter | Fax: | Fax: | | | | | Procedures | [phone] | [phone] | | | | | PT TREAT [...] [address] [place] | [place] [address] | encounter (Primary | | | | [place], [place] | [phone] | Dx) | | | | [address] | | | | | | [phone] | Nick Barrios I, PT | | [...] be different fro m the original. [facility] PT [address] [place] [address] Physical Therapy Daily Treatment Note Date: 10/18/2018 [...] in favor of SL heel raise with MACHINIST 2ND SHIFT. ONGOING: SLS on even surface 3x3 0 [...] | | | | | [place] [address] | | | | | | [phone] | | | | | | | | +--------+ + + + + | 10/30/ | Office | Primary Care | Erika Ernst, | | | 2019 | Visit | | DO [address] [place] | | | | | | [place] [address] | | | | | | [phone] | | | | | | | | +--------+ + + + + | 11/07/ | Appointment | Nutrition | Janel Webster | | | 2019 | | | [address] | | +--------+ + + + + | 11/28/ | Office | Otolaryngology | Anthony Alvarado MD | | | 2019 | Visit | | [address] | | | | | | [place], [place] | | | | | | [address] | | | | | | [phone] | | | | | | | | +--------+ + + + + | 02/09/ | Office | Neurology | Dhara, | | | 2019 | Visit | | DWA[address] [place], | | | | | | [place] [address] | | | | | | [phone] | | | | | | | | +--------+ + + + + documented as of this encounter Visit Diagnoses + + | Diagnosis | + + | Sprain of left ankle, subsequent encounter - Primary | + + documented in this encounter
--- OUTSIDE RECORDS SUMMARY | ~2019-09-30 | XMS | Encounter Summary ---
Demographics + + + | Address | [address] | | | [place] [address] | + + + | Home Phone [...] Team Providers + +------+ + | Care Treasury Director Name | Role | Phone | [...] Medication Refill | | 2018 | | [facility] | DO [address] | | | | | [facility] [address] | [place] [address] | | | | | [address] [place], | [phone] | | | | | [place] [address] | | | | | | [phone] | | | +--------+--------+ + + + [...] | | | | | [place] [address] | | | | | | [phone] | | | | | | | | +--------+ + + + + | 10/30/ | Office | Primary Care | Erika Ernst, | | | 2019 | Visit | | DO [address] | | | | | | [place] [address] | | | | | | [phone] | | | | | | | [...] [place] | | | | | | [address] | | | | | | [phone] | | | | | | | | +--------+ + + + + | 02/09/ | Office | Neurology | Dhara, | | | 2020 | Visit | | [address] | | | | | | [address] [place], | | | | | | [place] [address] | | | | | | [phone] | | | | | | | | +--------+ + + + + documented as of this encounter Visit Diagnoses Not on filedocumented in this encounter"
--- OUTSIDE RECORDS SUMMARY | ~2019-09-30 | XMS | Encounter Summary ---
Demographics + + + | Address | [address] | | | [place] [address] | + + + | Home Phone [...] Providers + +------+ + | Care Television Servicer Name | Role | Phone | + [...] | MEDICAL CLIN[facility] [address] | [place] [address] | Essential | | | | [address] [place], | [phone] | hypertension; Asthma | | | | [place] [address] | | due to | | | | [phone] | | environmental | | | | [...] allergy bunn. She will let the holter front desk monitor kne w this when she gets [...] (BMI) of 50.0 to 59.9 in adult ([facility]) Plan: We will order a week long [...] | | | | | [place] [address] | | | | | | [phone] | | | | | | | | +--------+ + + + + | 10/30/ | Office | Primary Care | Erika Ernst, | | | 2019 | Visit | | DO [address] [place] | | | | | | [place] [address] | | | | | | [phone] | | | | | | | [...] [place] | | | | | | [address] | | | | | | [phone] | | | | | | | | +--------+ + + + + | 02/09/ | Office | Neurology | Dhara, | | | 2019 | Visit | | [address] | | | | | | [address] [place], | | | | | | [place] [address] | | | | | | [phone] | | | | | | | [...]
--- OUTSIDE RECORDS SUMMARY | ~2019-09-30 | XMS | Encounter Summary ---
Demographics + + + | Address | [address] | | | [place] [address] | + + + | Home Phone [...] Providers + +------+ + | Care Chemist Instrumentation Name | Role | Phone | + [...] 05/20/ | Clinical | [place] [facility] | Luis Nichole MD | Vertigo (Primary Dx) | | 2019 | Support | [facility] | [address] | | | | | CLINIC [address] | [place] | | | | | [address] [place], | [address] | | | | | [place] [address] | | | | | | [phone] | | | +--------+ + + + [...] | | | | | [place] [address] | | | | | | [phone] | | | | | | | | +--------+ + + + + | 10/30/ | Office | Primary Care | Erika Ernst, | | | 2019 | Visit | | DO [address] | | | | | | [place] [address] | | | | | | [phone] | | | | | | | [...] [place] | | | | | | [address] | | | | | | [phone] | | | | | | | | +--------+ + + + + | 02/09/ | Office | Neurology | Dhara, | | | 2019 | Visit | | [address] | | | | | | [address] [place], | | | | | | [place] [address] | | | | | | [phone] | | | | | | | | +--------+ + + + + documented as of this encounter Visit Diagnoses + + | Diagnosis | + + | Vertigo - Primary Dizziness and giddiness | + + documented in this encounter"
--- OUTSIDE RECORDS SUMMARY | ~2019-09-30 | XMS | Encounter Summary ---
Demographics + + + | Address | [address] | | | [place] [address] | + + + | Home Phone [...] Providers + +------+ + | Care Research Specialist Name | Role | Phone | [...] | | CENTER [address] | [facility] | | | | | DR [place] | [place] [address] | | | | | [address] | [phone] | | | | | [phone] | | | +--------+ + + + [...] | | | | | [place] [address] | | | | | | [phone] | | | | | | | | +--------+ + + + + | 10/30/ | Office | Primary Care | Erika Ernst, | | | 2019 | Visit | | DO [address] [place] | | | | | | [place] [address] | | | | | | [phone] | | | | | | | [...] [place] | | | | | | [address] | | | | | | [phone] | | | | | | | | +--------+ + + + + | 02/09/ | Office | Neurology | Dhara, | | | 2020 | Visit | | [address] | | | | | | [address] [place], | | | | | | [place] [address] | | | | | | [phone] | | | | | | | | +--------+ + + + + documented as of this encounter Visit Diagnoses Not on filedocumented in this encounter"
--- OUTSIDE RECORDS SUMMARY | ~2019-09-30 | XMS | Encounter Summary ---
Demographics + + + | Address | [address] | | | [place] [address] | + + + | Home Phone [...] Team Providers + +------+ + | Care Implementation Project Manager Name | Role | Phone [...] [place] | | | | | | [address] | | | | | | [phone] | | | +--------+ + + + [...] [address] | | | | | | [phone] | | | | | | | | +--------+ + + + + | 10/30/ | Office | Primary Care | Erika Ernst, | | | 2019 | Visit | | DO [address] [place] | | | | | | [place] [address] | | | | | | [phone] | | | | | | | [...] [place] | | | | | | [address] | | | | | | [phone] | | | | | | | | +--------+ + + + + | 02/09/ | Office | Neurology | Dhara, | | | 2019 | Visit | | [address] | | | | | | [address] [place], | | | | | | [place] [address] | | | | | | [phone] | | | | | | | | +--------+ + + + + documented as of this encounter Visit Diagnoses Not on filedocumented in this encounter"
--- OUTSIDE RECORDS SUMMARY | ~2019-09-30 | XMS | Encounter Summary ---
Demographics + + + | Address | [address] | | | [place] [address] | + + + | Home Phone [...] + +------+ + | Care Dental Office Receptionist Name | Role | Phone | + +------+ + PCP | Unavailable | + +------+ + Encounter Details +--------+ + + + + | Date | Type | Department | Care Team | Description | +--------+ + + + + | 06/02/ | [facility] | [facility] | Amaya Varner NP | | | 2016 | Encounter | [facility] | [address] | | | | | MEDICAL CLIN[facility] [address] | [place], [place] | | | | | [address] [place], | [address] | | | | | [place] [address] | [phone] | | | | | [phone] | | | +--------+ + + + [...] | | | | | [place] [address] | | | | | | [phone] | | | | | | | | +--------+ + + + + | 10/30/ | Office | Primary Care | Erika Ernst, | | | 2019 | Visit | | DO [address] [place] | | | | | | [place] [address] | | | | | | [phone] | | | | | | | [...] [place] | | | | | | [address] | | | | | | [phone] | | | | | | | | +--------+ + + + + | 02/09/ | Office | Neurology | Dhara, | | | 2019 | Visit | | [address] | | | | | | [address] [place], | | | | | | [place] [address] | | | | | | [phone] | | | | | | | | +--------+ + + + + documented as of this encounter Visit Diagnoses Not on filedocumented in this encounter"
--- OUTSIDE RECORDS SUMMARY | ~2019-09-30 | XMS | Encounter Summary ---
Demographics + + + | Address | [address] | | | [place] [address] | + + + | Home Phone [...] Providers + +------+ + | Care Painter Helper Sign Name | Role | Phone | + [...] | | | to excess | [place] [address] | [place] | | | | | calories | Phone: | [phone] | | | | | without | [phone] | Phone: | | | | | serious | Fax: | [phone] | | | | | comorbidity | [phone] | Fax: | | | | | with body | | [phone] | | | | | mass index [...] | SERVICES [address] | [place] [address] | malignant; Simple | | | | DR [place] | [phone] | obesity; Body mass | | | | [address] | | index 50.0-59.9, | | | | [phone] | Janel Webster, | adult (HCC); Dietary [...] lungs. | | | | | | ([facility]) | | [...] | 04/12/20 | | | (VITAMIN D3) [address]74[address] | mouth Once a week | tablet [...] | | | | | [place] [address] | | | | | | [phone] | | | | | | | | +--------+ + + + + | 10/30/ | Office | Primary Care | Erika Ernst, | | | 2019 | Visit | | DO [address] [facility] [place] | | | | | | [place] [address] | | | | | | [phone] | | | | | | | [...] [place] | | | | | | [address] | | | | | | [phone] | | | | | | | | +--------+ + + + + | 02/09/ | Office | Neurology | Dhara, | | | 2020 | Visit | | [address] | | | | | | 4TH [facility] [place], | | | | | | [place] [address] | | | | | | [phone] | | | | | | | [...]
--- OUTSIDE RECORDS SUMMARY | ~2019-09-30 | XMS | Encounter Summary ---
Demographics + + + | Address | [address] | | | [place] [address] | + + + | Home Phone [...] Team Providers + +------+ + | Care Trestle Mechanic Name | Role | Phone | [...] | | | 2019 | Support | [facility] | [address] | | | | | MEDICAL CLINIC [address] | [place] [address] | | | | | [address] [place], | [phone] | | | | | [place] [address] | | | | | | [phone] | Denise Mcgregor, | | | | | | DELIVERY CONSULTANT [address] | | | | | | [place], [place] | | | | | | [address] | | | | | | [phone] | | | | | | | [...] mouth. Once a week Cholecalciferol (VITAMIN D3) 48150 units TABS Take 1 tablet by mouth [...] | | | | | [place] [address] | | | | | | [phone] | | | | | | | | +--------+ + + + + | 10/30/ | Office | Primary Care | Erika Ernst, | | | 2019 | Visit | | DO [address] [place] | | | | | | [place] [address] | | | | | | [phone] | | | | | | | [...] [place] | | | | | | [address] | | | | | | [phone] | | | | | | | | +--------+ + + + + | 02/09/ | Office | Neurology | Dhara, | | | 2019 | Visit | | [address] | | | | | | [address] [place], | | | | | | [place] [address] | | | | | | [phone] | | | | | | | | +--------+ + + + + documented as of this encounter Visit Diagnoses Not on filedocumented in this encounter"
--- OUTSIDE RECORDS SUMMARY | ~2019-09-30 | XMS | Encounter Summary ---
Demographics + + + | Address | [address] | | | [place] [address] | + + + | Home Phone [...] Team Providers + +------+ + | Care Supercharger Repair Supervisor Name | Role | Phone | [...] | | | of left | [place] [address] | [place], [place] | | | | | ankle, | Phone: | [address] | | | | | subsequent | [phone] | Phone: | | | | | encounter | Fax: | [phone] | | | | | Procedures | [phone] | Fax: | | | | | [place] | | [phone] | +--------+ + + + + + [...] | [place], [place] | [place] [address] | encounter (Primary | | | | [address] | [phone] | Dx); Morbid obesity | | | | [phone] | | (HCC) | +--------+---------+ + + [...] although I will send her to our older worker specialist Dr. Mittal for a second opin ion [...] Maternal Grandmother Heart attack Maternal Aunt [place] Social History Social History Marital status: Single [...] and their vital signs recorded by my personal assistant today, a s found in this chart note. Electronically signed by: Abhi Grimes DO 11/16/2018 at 8:24 Note: Part of this report was transcribed using voice recognition software. Every effort wa s made to ensure accuracy. However, inadvertent computerized wire spinner errors may be pre sent. CC: Erika [...] | | | | | [place] [address] | | | | | | [phone] | | | | | | | | +--------+ + + + + | 10/30/ | Office | Primary Care | rEika Ernst, | | | 2019 | Visit | | DO [address] [place] | | | | | | [place] [address] | | | | | | [phone] | | | | | | | [...] [place] | | | | | | [address] | | | | | | [phone] | | | | | | | | +--------+ + + + + | 02/09/ | Office | Neurology | Dhara, | | | 2020 | Visit | | [address] | | | | | | 4TH [facility], | | | | | | [place] [address] | | | | | | [phone] | | | | | | | [...]
--- OUTSIDE RECORDS SUMMARY | ~2019-09-30 | XMS | Encounter Summary ---
Demographics + + + | Address | [address] | | | [place] [address] | + + + | Home Phone [...] Team Providers + +------+ + | Care Botany Laboratory Assistant Name | Role | Phone | [...] | | | [place] | [id number] | | | | | [address] | | | | | | [phone] | | | +--------+ + + + [...] | | | | | [place] [address] | | | | | | [phone] | | | | | | | | +--------+ + + + + | 10/30/ | Office | Primary Care | Erika Ernst, | | | 2019 | Visit | | DO [address] [facility] [place] | | | | | | [place] [address] | | | | | | [phone] | | | | | | | [...] [place] | | | | | | [address] | | | | | | [phone] | | | | | | | | +--------+ + + + + | 02/09/ | Office | Neurology | Dhara, | | | 2019 | Visit | | [address] | | | | | | [address] [place], | | | | | | [place] [address] | | | | | | [phone] | | | | | | | | +--------+ + + + + documented as of this encounter Visit Diagnoses Not on filedocumented in this encounter"
--- OUTSIDE RECORDS SUMMARY | ~2019-09-30 | XMS | Encounter Summary ---
Demographics + + + | Address | [address] | | | [place] [address] | + + + | Home Phone [...] Providers + +------+ + | Care Hand Molder Name | Role | Phone | [...] | | | MEDICAL CL[facility] [address] | [facility] [place] [address] | | | | | [address] [facility], | [phone] | | | | | [place] [address] | | | | | | [phone] | | | +--------+ + + + [...] | | | | | [place] [address] | | | | | | [phone] | | | | | | | | +--------+ + + + + | 10/30/ | Office | Primary Care | Erika Ernst, | | | 2019 | Visit | | DO [address] [place] | | | | | | [place] [address] | | | | | | [phone] | | | | | | | [...] [place] | | | | | | [address] | | | | | | [phone] | | | | | | | | +--------+ + + + + | 02/09/ | Office | Neurology | Dhara, | | | 2020 | Visit | | [address] | | | | | | [address] [place], | | | | | | [place] [address] | | | | | | [phone] | | | | | | | | +--------+ + + + + documented as of this encounter Visit Diagnoses Not on filedocumented in this encounter"
--- OUTSIDE RECORDS SUMMARY | ~2019-09-30 | XMS | Encounter Summary ---
Demographics + + + | Address | [address] | | | [place] [address] | + + + | Home Phone [...] Providers + +------+ + | Care Air And Water Filler Name | Role | Phone | [...] | [place], [place] | [place] [address] | | | | | [address] | [phone] | | | | | [phone] | | | +--------+---------+ + + + [...] right wrist arthroscop y and [facility] in [facility]. She continued to have pain at the [...] Heart attack Maternal Aunt [place] Social History Tobacco Use Smoking status: Never [...] made to ensure accuracy. However, inadvertent computerized stone chimney mason errors may be pre sent. documented in [...] [address] | | | | | | [phone] | | | | | | | | +--------+ + + + + | 10/30/ | Office | Primary Care | Erika Ernst, | | | 2019 | Visit | | DO [address] [place] | | | | | | [place] [address] | | | | | | [phone] | | | | | | | [...] [place] | | | | | | [address] | | | | | | [phone] | | | | | | | | +--------+ + + + + | 02/09/ | Office | Neurology | Dhara, | | | 2019 | Visit | | [address] | | | | | | [address] [place], | | | | | | [place] [address] | | | | | | [phone] | | | | | | | | +--------+ + + + + documented as of this encounter Visit Diagnoses + + | Diagnosis | + + | S/P right ECU tenosynovectomy on 03/20/19 - Primary | + + documented in this encounter"
--- OUTSIDE RECORDS SUMMARY | ~2019-09-30 | XMS | Encounter Summary ---
Demographics + + + | Address | [address] | | | [place] [address] | + + + | Home Phone [...] Providers + +------+ + | Care Electronic Industrial Controls Mechanic Name | Role | Phone | + +------+ + | Erika Ernst DO | PCP | | + +------+ + Reason for Visit +--------+ + | Reason | Comments | +--------+ + | Other | Nurse only | +--------+ + Encounter Details +--------+ + + + + | Date | Type | Department | Care Team | Description | +--------+ + + + + | 09/19/ | Clinical | [place] [facility] | Erika Ernst, | | | 2018 | Support | [facility] | DO [address] | | | | | MEDICAL CLINIC [address] | [place] [address] | | | | | [address] [place], | [phone] | | | | | [place] [address] | | | | | | [phone] | | | +--------+ + + + [...] documented as of this encounter Progress Notes Alma Rosa Lucero CC CMA - 09/19/2019 11:00 AM PSTFormatting of this note might be differ ent from the original. Erika Ernst, BRISA Aponte CMA If she is having trouble with the ramipril and they will not fill the 5 mg then have her ta ke her minipress 1 mg BID and monitor BP at home and just stop the ramipril for now. Patient notified of the above message. documented in this encounter Plan of Treatment +--------+ + + + + | Date | Type | Specialty | Care Team | Description | +--------+ + + + + | 10/01/ | Office | Primary Care | Erika Ernst, | | | 2018 | Visit | | DO [address] [place] | | | | | | [place] [address] | | | | | | [phone] | | | | | | | | +--------+ + + + + | 10/30/ | Office | Primary Care | Erika Ernst, | | | 2019 | Visit | | DO [address] [place] | | | | | | [place] [address] | | | | | | [phone] | | | | | | | [...] [place] | | | | | | [address] | | | | | | [phone] | | | | | | | | +--------+ + + + + | 02/09/ | Office | Neurology | Dhara, | | | 2020 | Visit | | [address] | | | | | | [address] [place], | | | | | | [place] [address] | | | | | | [phone] | | | | | | | | +--------+ + + + + documented as of this encounter Visit Diagnoses Not on filedocumented in this encounter"
--- OUTSIDE RECORDS SUMMARY | ~2019-09-30 | XMS | Encounter Summary ---
Demographics + + + | Address | [address] | | | [place] [address] | + + + | Home Phone [...] Team Providers + +------+ + | Care Orthopedic Surgeon Name | Role | Phone | + [...] [address] | | | | | [place] [address] | | | | | | [phone] | | | +--------+ + + + [...] | | | | | [place] [address] | | | | | | [phone] | | | | | | | | +--------+ + + + + | 10/30/ | Office | Primary Care | Erika Ernst, | | | 2019 | Visit | | DO [address] [place] | | | | | | [place] [address] | | | | | | [phone] | | | | | | | [...] [place] | | | | | | [address] | | | | | | [phone] | | | | | | | | +--------+ + + + + | 02/09/ | Office | Neurology | Dhara, | | | 2020 | Visit | | [address] | | | | | | [address] [place], | | | | | | [place] [address] | | | | | | [phone] | | | | | | | | +--------+ + + + + documented as of this encounter Visit Diagnoses Not on filedocumented in this encounter"
--- OUTSIDE RECORDS SUMMARY | ~2019-09-30 | XMS | Encounter Summary ---
Demographics + + + | Address | [address] | | | [place] [address] | + + + | Home Phone [...] Team Providers + +------+ + | Care Dinkey Dispatcher Name | Role | Phone | [...] [address] | | | | | [place] [address] | | | | | | [phone] | | | +--------+ + + + [...] | | | | | [place] [address] | | | | | | [phone] | | | | | | | | +--------+ + + + + | 10/30/ | Office | Primary Care | Erika Ernst, | | | 2019 | Visit | | DO [address] | | | | | | [place] [address] | | | | | | [phone] | | | | | | | [...] [place] | | | | | | [address] | | | | | | [phone] | | | | | | | | +--------+ + + + + | 02/09/ | Office | Neurology | Dhara, | | | 2020 | Visit | | [address] | | | | | | [address] [place], | | | | | | [place] [address] | | | | | | [phone] | | | | | | | | +--------+ + + + + documented as of this encounter Visit Diagnoses Not on filedocumented in this encounter"
--- OUTSIDE RECORDS SUMMARY | ~2019-09-30 | XMS | Encounter Summary ---
Demographics + + + | Address | [address] | | | [place] [address] | + + + | Home Phone [...] Team Providers + +------+ + | Care Conversion Worker Name | Role | Phone | [...] | [place] | [place] [address] | | | | | [address] | [phone] | | | | | [phone] | | | +--------+ + + + [...] | | | | | [place] [address] | | | | | | [phone] | | | | | | | | +--------+ + + + + | 10/30/ | Office | Primary Care | Erika Ernst, | | | 2019 | Visit | | DO [address] [place] | | | | | | [place] [address] | | | | | | [phone] | | | | | | | [...] [place] | | | | | | [address] | | | | | | [phone] | | | | | | | | +--------+ + + + + | 02/09/ | Office | Neurology | Dhara, | | | 2020 | Visit | | [address] | | | | | | [address] [place], | | | | | | [place] [address] | | | | | | [phone] | | | | | | | | +--------+ + + + + documented as of this encounter Visit Diagnoses Not on filedocumented in this encounter"
--- OUTSIDE RECORDS SUMMARY | ~2019-09-30 | XMS | Encounter Summary ---
Demographics + + + | Address | [address] | | | [place] [address] | + + + | Home Phone [...] Providers + +------+ + | Care Fire Chief Deputy Name | Role | Phone | + [...] | | | to excess | [place] [address] | [place] | | | | | calories | Phone: | [address] | | | | | without | [phone] | Phone: | | | | | serious | Fax: | [phone] | | | | | comorbidity | [phone] | Fax: | | | | | with body | | [phone] | | | | | mass index [...] | SERVICES [address] | [place] [address] | malignant; Simple | | | | [place] | [phone] | obesity; Body mass | | | | [address] | | index 50.0-59.9, | | | | [phone] | Janel Webster, | adult (HCC); Dietary [...] | 04/12/20 | | | (VITAMIN D3) [address] | mouth Once a week | tablet [...] | | | | | [place] [address] | | | | | | [phone] | | | | | | | | +--------+ + + + + | 10/30/ | Office | Primary Care | Erika Ernst, | | | 2019 | Visit | | DO [address] [facility] [place] | | | | | | [place] [address] | | | | | | [phone] | | | | | | | [...] [place] | | | | | | [address] | | | | | | [phone] | | | | | | | | +--------+ + + + + | 02/09/ | Office | Neurology | Dhara, | | | 2020 | Visit | | [address] | | | | | | 4TH [facility] [place], | | | | | | [place] [address] | | | | | | [phone] | | | | | | | [...]
--- OUTSIDE RECORDS SUMMARY | ~2019-09-30 | XMS | Encounter Summary ---
Demographics + + + | Address | [address] | | | [place] [address] | + + + | Home Phone [...] Team Providers + +------+ + | Care Process Plant Operator Name | Role | Phone [...] | | | 2019 | Support | [facility] | DWAINE Rob | | | | | [facility] [address] | [address] [place] | | | | | [address] [place], | [place] [address] | | | | | [place] [address] | [phone] | | | | | [phone] | | | +--------+ + + + [...] | | | | | [place] [address] | | | | | | [phone] | | | | | | | | +--------+ + + + + | 10/30/ | Office | Primary Care | Erika Ernst, | | | 2019 | Visit | | DO [address] [place] | | | | | | [place] [address] | | | | | | [phone] | | | | | | | [...] [place] | | | | | | [address] | | | | | | [phone] | | | | | | | | +--------+ + + + + | 02/09/ | Office | Neurology | Dhara, | | | 2019 | Visit | | [address] [place], | | | | | | [place] [address] | | | | | | [phone] | | | | | | | | +--------+ + + + + documented as of this encounter Visit Diagnoses Not on filedocumented in this encounter"
--- OUTSIDE RECORDS SUMMARY | ~2019-09-30 | XMS | Encounter Summary ---
Demographics + + + | Address | [address] | | | [place] [address] | + + + | Home Phone [...] Team Providers + +------+ + | Care Dietitian Teacher Name | Role | Phone | [...] | | [place] | [place] [address] | | | | | [address] | [phone] | | | | | [phone] | | | +--------+ + + + [...] | | | | | [place] [address] | | | | | | [phone] | | | | | | | | +--------+ + + + + | 10/30/ | Office | Primary Care | Erika Ernst, | | | 2019 | Visit | | DO [address] | | | | | | [place] [address] | | | | | | [phone] | | | | | | | [...] [place] | | | | | | [address] | | | | | | [phone] | | | | | | | | +--------+ + + + + | 02/09/ | Office | Neurology | Dhara, | | | 2019 | Visit | | DWAINE [address] [place], | | | | | | [place] [address] | | | | | | [phone] | | | | | | | | +--------+ + + + + documented as of this encounter Visit Diagnoses Not on filedocumented in this encounter"
--- OUTSIDE RECORDS SUMMARY | ~2019-09-30 | XMS | Encounter Summary ---
Demographics + + + | Address | [address] | | | [place] [address] | + + + | Home Phone [...] Providers + +------+ + | Care Rack Room Worker Name | Role | Phone | + +------+ + PCP | Unavailable | + +------+ + Encounter Details +--------+ + + + + | Date | Type | Department | Care Team | Description | +--------+ + + + + | 11/10/ | [facility] | Caro Zendejas | | | 2015 | Encounter | [facility] | Vale, CYLINDER INSPECTOR AND TESTER [address] | | | | | [facility] [address] | [facility], [place] | | | | | [address]TH [facility], | [address] | | | | | [place] [address] | [phone] | | | | | [phone] | | | +--------+ + + + [...] | | | | | [place] [address] | | | | | | [phone] | | | | | | | | +--------+ + + + + | 10/30/ | Office | Primary Care | Erika Ernst, | | | 2019 | Visit | | DO [address] | | | | | | [place] [address] | | | | | | [phone] | | | | | | | [...] [place] | | | | | | [address] | | | | | | [phone] | | | | | | | | +--------+ + + + + | 02/09/ | Office | Neurology | Dhara, | | | 2020 | Visit | | [address]WA[address] | | | | | | [address] [place], | | | | | | [place] [address] | | | | | | [phone] | | | | | | | | +--------+ + + + + documented as of this encounter Visit Diagnoses Not on filedocumented in this encounter"
--- OUTSIDE RECORDS SUMMARY | ~2019-09-30 | XMS | Encounter Summary ---
Demographics + + + | Address | [address] | | | [place] [address] | + + + | Home Phone [...] Team Providers + +------+ + | Care Consultant Rn Name | Role | Phone | + +------+ + PCP | Unavailable | + +------+ + Encounter Details +--------+ + + + + | Date | Type | Department | Care Team | Description | +--------+ + + + + | 01/18/ | [facility] | Spenser Roberts NP | | | 2015 | Encounter | [facility] | [address], | | | | | MEDICAL CLIN[facility] [address] | [place] [address] | | | | | 4TH [facility], | [phone] | | | | | [place] [address] | | | | | | [phone] | | | +--------+ + + + [...] | | | | | [place] [address] | | | | | | [phone] | | | | | | | | +--------+ + + + + | 10/30/ | Office | Primary Care | Erika Ernst, | | | 2019 | Visit | | DO [address] | | | | | | [place] [address] | | | | | | [phone] | | | | | | | [...] [place] | | | | | | [address] | | | | | | [phone] | | | | | | | | +--------+ + + + + | 02/09/ | Office | Neurology | Dhara, | | | 2020 | Visit | | [address] | | | | | | [address] [place], | | | | | | [place] [address] | | | | | | [phone] | | | | | | | | +--------+ + + + + documented as of this encounter Visit Diagnoses Not on filedocumented in this encounter"
--- OUTSIDE RECORDS SUMMARY | ~2019-09-30 | XMS | Encounter Summary ---
Demographics + + + | Address | [address] | | | [place] [address] | + + + | Home Phone [...] Providers + +------+ + | Care Medical Imaging Tech Name | Role | Phone | + +------+ + | Erika Ernst DO | PCP | | + +------+ + Encounter Details +--------+ + + + + | Date | Type | Department | Care Team | Description | +--------+ + + + + | 01/07/ | Abstract | [place] [facility] | Erika Ernst, | | | 2018 | | [address] | | | | | MEDICAL CLINIC [address] | [place] [address] | | | | | [address] [facility] [place], | [phone] | | | | | [place] [address] | | | | | | [phone] | | | +--------+ + + + [...] | | | | | [place] [address] | | | | | | [phone] | | | | | | | | +--------+ + + + + | 10/30/ | Office | Primary Care | Erika Ernst, | | | 2019 | Visit | | DO [address] | | | | | | [place] [address] | | | | | | [phone] | | | | | | | [...] | | | | | | [place] | | | | | | [address] | | | | | | [phone] | | | | | | | | +--------+ + + + + | 02/09/ | Office | Neurology | Dhara, | | | 2019 | Visit | | [address] | | | | | | [address] [place], | | | | | | [place] [address] | | | | | | [phone] | | | | | | | | +--------+ + + + + documented as of this encounter Visit Diagnoses Not on filedocumented in this encounter"
--- OUTSIDE RECORDS SUMMARY | ~2019-09-30 | XMS | Encounter Summary ---
Demographics + + + | Address | [address] | | | [place] [address] | + + + | Home Phone [...] Providers + +------+ + | Care Media Reconciliation Specialist Name | Role | Phone | [...] | | | of left | [place] [address] | [place] [address] | | | | | ankle, | Phone: | Phone: | | | | | initial | [phone] | [phone] | | | | | encounter | Fax: | Fax: | | | | | Procedures | [phone] | [phone] | | | | | PT TREAT [...] [address] | [place] [address] | encounter (Primary | | | | [place], [place] | [phone] | Dx) | | | | [address] | | | | | | [phone] | Nick Barrios I, PT | | [...] be different fro m the original. [facility] THER[facility] PT [address] [place] [address] Physical Therapy Daily Treatment Note Date: 10/05/2018 [...] favor of SL heel raise with QUALITY RN. ONGOING: SLS on even surfac e 3x30 [...] | | | | | [place] [address] | | | | | | [phone] | | | | | | | | +--------+ + + + + | 10/30/ | Office | Primary Care | Erika Ernst, | | | 2019 | Visit | | DO [address] | | | | | | [place] [address] | | | | | | [phone] | | | | | | | [...] [place] | | | | | | [address] | | | | | | [phone] | | | | | | | | +--------+ + + + + | 02/09/ | Office | Neurology | Dhara, | | | 2019 | Visit | | [address] | | | | | | [address] [place], | | | | | | [place] [address] | | | | | | [phone] | | | | | | | | +--------+ + + + + documented as of this encounter Visit Diagnoses + + | Diagnosis | + + | Sprain of left ankle, subsequent encounter - Primary | + + documented in this encounter
--- OUTSIDE RECORDS SUMMARY | ~2019-09-30 | XMS | Encounter Summary ---
Demographics + + + | Address | [address] | | | [place] [address] | + + + | Home Phone [...] Team Providers + +------+ + | Care Boilermaker Welder Name | Role | Phone | [...] Medication Question | | 2018 | | [facility] | [facility] [address] [place] | (medication is | | | | MEDICAL CLINIC [address] | [facility] [place] [address] | making her nauseous. | | | | [address] [place], | [phone] | ) | | | | [place] [address] | | | | | | [phone] | | | +--------+ + + + [...] | | | | | [place] [address] | | | | | | [phone] | | | | | | | | +--------+ + + + + | 10/30/ | Office | Primary Care | Erika Ernst, | | | 2019 | Visit | | DO [address] | | | | | | [place] [address] | | | | | | [phone] | | | | | | | [...] [place] | | | | | | [address] | | | | | | [phone] | | | | | | | | +--------+ + + + + | 02/09/ | Office | Neurology | Dhara, | | | 2020 | Visit | | [address] | | | | | | [address] [place], | | | | | | [place] [address] | | | | | | [phone] | | | | | | | | +--------+ + + + + documented as of this encounter Visit Diagnoses Not on filedocumented in this encounter"
--- OUTSIDE RECORDS SUMMARY | ~2019-09-30 | XMS | Encounter Summary ---
Demographics + + + | Address | [address] | | | [place] [address] | + + + | Home Phone [...] Providers + +------+ + | Care Contract Associate Name | Role | Phone | + +------+ + PCP | Unavailable | + +------+ + Encounter Details +--------+ + + + + | Date | Type | Department | Care Team | Description | +--------+ + + + + | 02/10/ | [facility] | Denise Mcgregor | | | 2016 | Encounter | [facility] | G, INSIDE UPHOLSTERER [address] | | | | | MEDICAL CLIN[facility] [address] | [facility] [place] | | | | | [address] [facility], | [address] | | | | | [place] [address] | [phone] | | | | | [phone] | | | +--------+ + + + [...] | | | | | [place] [address] | | | | | | [phone] | | | | | | | | +--------+ + + + + | 10/30/ | Office | Primary Care | Erika Ernst, | | | 2019 | Visit | | DO [address] | | | | | | [place] [address] | | | | | | [phone] | | | | | | | [...] [place] | | | | | | [address] | | | | | | [phone] | | | | | | | | +--------+ + + + + | 02/09/ | Office | Neurology | Dhara, | | | 2019 | Visit | | [address] | | | | | | [address] [place], | | | | | | [place] [address] | | | | | | [phone] | | | | | | | | +--------+ + + + + documented as of this encounter Visit Diagnoses Not on filedocumented in this encounter"
--- OUTSIDE RECORDS SUMMARY | ~2019-09-30 | XMS | Encounter Summary ---
Demographics + + + | Address | [address] | | | [place] [address] | + + + | Home Phone [...] | [facility] | | | [...] Team Providers + +------+ + | Care Loader Machine Name | Role | Phone | [...] | [address] [place], [place] | [place] [address] | | | | | [address] | [phone] | | | | | [phone] | | | +--------+ + + + [...] | | | | | [place] [address] | | | | | | [phone] | | | | | | | | +--------+ + + + + | 10/30/ | Office | Primary Care | Erika Ernst, | | | 2019 | Visit | | DO [address] | | | | | | [place] [address] | | | | | | [phone] | | | | | | | [...] [place] | | | | | | [address] | | | | | | [phone] | | | | | | | | +--------+ + + + + | 02/09/ | Office | Neurology | Dhara, | | | 2020 | Visit | | [address] | | | | | | [address] [place], | | | | | | [place] [address] | | | | | | [phone] | | | | | | | | +--------+ + + + + documented as of this encounter Visit Diagnoses Not on filedocumented in this encounter"
--- OUTSIDE RECORDS SUMMARY | ~2019-09-30 | XMS | Encounter Summary ---
Demographics + + + | Address | [address] | | | [place] [address] | + + + | Home Phone [...] Providers + +------+ + | Care Manager Education Name | Role | Phone | + +------+ + | Erika Ernst DO | PCP | | + +------+ + Encounter Details +--------+ + + + + | Date | Type | Department | Care Team | Description | +--------+ + + + + | 06/17/ | Hospital | [facility] | Conversion | Diagnosis unknown | | 2018 | Encounter | CONVERSION [address] | Transaction, | | | | | [address] | Provider Unknown | | | | | [place], [place] | [phone] | | | | | [address] | (Fax) | | | | | [phone] | | | +--------+ + + + [...] | 03/19/20 | | | (VITAMIN D3) 76820 | mouth Once a week | tablet [...] | | | | | [place] [address] | | | | | | [phone] | | | | | | | | +--------+ + + + + | 10/30/ | Office | Primary Care | Erika Ernst, | | | 2019 | Visit | | DO [address] [facility] [address] [place] | | | | | | [place] [address] | | | | | | [phone] | | | | | | | [...] [place] | | | | | | [address] | | | | | | [phone] | | | | | | | | +--------+ + + + + | 02/09/ | Office | Neurology | Dhara, | | | 2019 | Visit | | [address] | | | | | | [address] [place], | | | | | | [place] [address] | | | | | | [phone] | | | | | | | [...]
--- OUTSIDE RECORDS SUMMARY | ~2019-09-30 | XMS | Encounter Summary ---
Demographics + + + | Address | [address] | | | [place] [address] | + + + | Home Phone [...] Team Providers + +------+ + | Care Geomagnetician Name | Role | Phone | + [...] Medication Refill | | 2019 | | [facility] | DO [address] | | | | | MEDICAL CLINIC [address] | [place] [address] | | | | | [address] [place], | [phone] | | | | | [place] [address] | | | | | | [phone] | | | +--------+--------+ + + + [...] | | | | | [place] [address] | | | | | | [phone] | | | | | | | | +--------+ + + + + | 10/30/ | Office | Primary Care | Erika Ernst, | | | 2019 | Visit | | DO [address] | | | | | | [place] [address] | | | | | | [phone] | | | | | | | [...] [place] | | | | | | [address] | | | | | | [phone] | | | | | | | | +--------+ + + + + | 02/09/ | Office | Neurology | Dhara, | | | 2020 | Visit | | [address] | | | | | | [address] [place], | | | | | | [place] [address] | | | | | | [phone] | | | | | | | | +--------+ + + + + documented as of this encounter Visit Diagnoses Not on filedocumented in this encounter"
--- OUTSIDE RECORDS SUMMARY | ~2019-09-30 | XMS | Encounter Summary ---
Demographics + + + | Address | [address] | | | [place] [address] | + + + | Home Phone [...] | [place], [place] | [place] [address] | | | | | [address] | [phone] | | | | | [phone] | | | +--------+ + + + [...] | | | | | [place] [address] | | | | | | [phone] | | | | | | | | +--------+ + + + + | 10/30/ | Office | Primary Care | Erika Ernst, | | | 2019 | Visit | | DO [address] [place] [address] | | | | | | [place] [address] | | | | | | [phone] | | | | | | | [...] [place] | | | | | | [address] | | | | | | [phone] | | | | | | | | +--------+ + + + + | 02/09/ | Office | Neurology | Dhara, | | | 2019 | Visit | | [address] | | | | | | [address] [place], | | | | | | [place] [address] | | | | | | [phone] | | | | | | | | +--------+ + + + + documented as of this encounter Visit Diagnoses Not on filedocumented in this encounter"
--- OUTSIDE RECORDS SUMMARY | ~2019-09-30 | XMS | Encounter Summary ---
Demographics + + + | Address | [address] | | | [place] [address] | + + + | Home Phone [...] +------+ + | Care Senior Information Security Consultant Name | Role | Phone | [...] | | | [place], [place] | [address] | | | | | [address] | [phone] | | | | | [phone] | | | +--------+ + + + [...] | | | | | [place] [address] | | | | | | [phone] | | | | | | | | +--------+ + + + + | 10/30/ | Office | Primary Care | Erika Ernst, | | | 2019 | Visit | | DO [address] | | | | | | [place] [address] | | | | | | [phone] | | | | | | | [...] [place] | | | | | | [address] | | | | | | [phone] | | | | | | | | +--------+ + + + + | 02/09/ | Office | Neurology | Dhara, | | | 2020 | Visit | | [address] | | | | | | [address] [place], | | | | | | [place] [address] | | | | | | [phone] | | | | | | | | +--------+ + + + + documented as of this encounter Visit Diagnoses Not on filedocumented in this encounter"
--- OUTSIDE RECORDS SUMMARY | ~2019-09-30 | XMS | Encounter Summary ---
Demographics + + + | Address | [address] | | | [place] [address] | + + + | Home Phone [...] Team Providers + +------+ + | Care Avionics Systems Repairer Name | Role | Phone | [...] [address] | | | | | [place] [address] | | | | | | [phone] | | | +--------+ + + + [...] | | | | | [place] [address] | | | | | | [phone] | | | | | | | | +--------+ + + + + | 10/30/ | Office | Primary Care | Erika Ernst, | | | 2019 | Visit | | DO [address] | | | | | | [place] [address] | | | | | | [phone] | | | | | | | [...] [place] | | | | | | [address] | | | | | | [phone] | | | | | | | | +--------+ + + + + | 02/09/ | Office | Neurology | Dhara, | | | 2020 | Visit | | [address] | | | | | | [address] [place], | | | | | | [place] [address] | | | | | | [phone] | | | | | | | | +--------+ + + + + documented as of this encounter Visit Diagnoses Not on filedocumented in this encounter"
--- OUTSIDE RECORDS SUMMARY | ~2019-09-30 | XMS | Encounter Summary ---
Demographics + + + | Address | [address] | | | [place] [address] | + + + | Home Phone [...] Providers + +------+ + | Care High Value Associate Name | Role | Phone | [...] CLINIC [address] | [place] [address] | | | | | [address] [facility], | [phone] | | | | | [place] [address] | | | | | | [phone] | | | +--------+ + + + [...] | | | | | [place] [address] | | | | | | [phone] | | | | | | | | +--------+ + + + + | 10/30/ | Office | Primary Care | Erika Ernst, | | | 2019 | Visit | | DO [address] [place] | | | | | | [place] [address] | | | | | | [phone] | | | | | | | [...] [place] | | | | | | [address] | | | | | | [phone] | | | | | | | | +--------+ + + + + | 02/09/ | Office | Neurology | Dhara, | | | 2020 | Visit | | [address] | | | | | | [address] [place], | | | | | | [place] [address] | | | | | | [phone] | | | | | | | | +--------+ + + + + documented as of this encounter Visit Diagnoses Not on filedocumented in this encounter"
--- OUTSIDE RECORDS SUMMARY | ~2019-09-30 | XMS | Encounter Summary ---
Demographics + + + | Address | [address] | | | [place] [address] | + + + | Home Phone [...] Team Providers + +------+ + | Care Logging Tractor Operator Name | Role | Phone [...] MEDICAL CLINIC [address] | [facility] [address] | | | | | [address] [place], | [phone] | | | | | [place] [address] | | | | | | [phone] | | | +--------+ + + + [...] | | | | | [place] [address] | | | | | | [phone] | | | | | | | | +--------+ + + + + | 10/30/ | Office | Primary Care | Erika Ernst, | | | 2019 | Visit | | DO [address] | | | | | | [place] [address] | | | | | | [phone] | | | | | | | [...] [place] | | | | | | [address] | | | | | | [phone] | | | | | | | | +--------+ + + + + | 02/09/ | Office | Neurology | Dhara, | | | 2020 | Visit | | [address] | | | | | | [address] [place], | | | | | | [place] [address] | | | | | | [phone] | | | | | | | | +--------+ + + + + documented as of this encounter Visit Diagnoses Not on filedocumented in this encounter"
--- OUTSIDE RECORDS SUMMARY | ~2019-09-30 | XMS | Encounter Summary ---
Demographics + + + | Address | [address] | | | [place] [address] | + + + | Home Phone [...] | | | [place], [place] | [address] | | | | | [address] | [phone] | | | | | [phone] | | | +--------+ + + + [...] | | | | | [place] [address] | | | | | | [phone] | | | | | | | | +--------+ + + + + | 10/30/ | Office | Primary Care | Erika Ernst, | | | 2019 | Visit | | DO [address] [place] | | | | | | [place] [address] | | | | | | [phone] | | | | | | | [...] [place] | | | | | | [address] | | | | | | [phone] | | | | | | | | +--------+ + + + + | 02/09/ | Office | Neurology | Dhara, | | | 2020 | Visit | | [address] | | | | | | [address] [place], | | | | | | [place] [address] | | | | | | [phone] | | | | | | | | +--------+ + + + + documented as of this encounter Visit Diagnoses Not on filedocumented in this encounter"
--- OUTSIDE RECORDS SUMMARY | ~2019-09-30 | XMS | Encounter Summary ---
Demographics + + + | Address | [address] | | | [place] [address] | + + + | Home Phone [...] Team Providers + +------+ + | Care Chef Concierge Name | Role | Phone | + +------+ + | Erika Ernst DO | PCP | | + +------+ + Encounter Details +--------+ + + + + | Date | Type | Department | Care Team | Description | +--------+ + + + + | 05/06/ | [facility] | [place] [facility] | Marvel, | Asthma, unspecified | | 2019 | Encounter | [facility] XRAY [address] | [address] | asthma severity, | | | | [address] | [place] | unspecified whether | | | | [place] | [place] [address] | complicated, | | | | [address] | | unspecified whether | | | | [phone] | (Fax) | persistent | +--------+ + [...] | 04/12/20 | | | (VITAMIN D3) 16966 | mouth Once a week | tablet [...] | | | | | [place] [address] | | | | | | [phone] | | | | | | | | +--------+ + + + + | 10/30/ | Office | Primary Care | Erika Ernst, | | | 2019 | Visit | | DO [address] | | | | | | [place] [address] | | | | | | [phone] | | | | | | | [...] [place] | | | | | | [address] | | | | | | [phone] | | | | | | | | +--------+ + + + + | 02/09/ | Office | Neurology | Dhara, | | | 2020 | Visit | | [address] | | | | | | [address] [place], | | | | | | [place] [address] | | | | | | [phone] | | | | | | | [...]
--- OUTSIDE RECORDS SUMMARY | ~2019-09-30 | XMS | Encounter Summary ---
Demographics + + + | Address | [address] | | | [place] [address] | + + + | Home Phone [...] Providers + +------+ + | Care Hardwood Floor Sander Name | Role | Phone | + +------+ + PCP | Unavailable | + +------+ + Encounter Details +--------+ + + + + | Date | Type | Department | Care Team | Description | +--------+ + + + + | 04/13/ | [facility] | Caro Zendejas | | | 2015 | Encounter | [facility] | Vale, PRINCIPAL JAVA SOFTWARE ENGINEER [address] | | | | | MEDICAL CL[facility] [address] | [facility], [place] | | | | | [address]TH [facility], | [address] | | | | | [place] [address] | [phone] | | | | | [phone] | | | +--------+ + + + [...] | | | | | [place] [address] | | | | | | [phone] | | | | | | | | +--------+ + + + + | 10/30/ | Office | Primary Care | Erika Ernst, | | | 2019 | Visit | | DO [address] | | | | | | [place] [address] | | | | | | [phone] | | | | | | | [...] [place] | | | | | | [address] | | | | | | [phone] | | | | | | | | +--------+ + + + + | 02/09/ | Office | Neurology | Dhara, | | | 2020 | Visit | | [address] | | | | | | [address] [place], | | | | | | [place] [address] | | | | | | [phone] | | | | | | | | +--------+ + + + + documented as of this encounter Visit Diagnoses Not on filedocumented in this encounter"
--- OUTSIDE RECORDS SUMMARY | ~2019-09-30 | XMS | Encounter Summary ---
Demographics + + + | Address | [address] | | | [place] [address] | + + + | Home Phone [...] Providers + +------+ + | Care Field Counsel Name | Role | Phone | + [...] | | | | [place] | [address] | | | | | [address] | [phone] | | | | | [phone] | | | +--------+ + + + [...] | | | | | [place] [address] | | | | | | [phone] | | | | | | | | +--------+ + + + + | 10/30/ | Office | Primary Care | Erika Ernst, | | | 2019 | Visit | | DO [address] [place] | | | | | | [place] [address] | | | | | | [phone] | | | | | | | [...] [place] | | | | | | [address] | | | | | | [phone] | | | | | | | | +--------+ + + + + | 02/09/ | Office | Neurology | Dhara, | | | 2019 | Visit | | [address] | | | | | | [address] [place], | | | | | | [place] [address] | | | | | | [phone] | | | | | | | | +--------+ + + + + documented as of this encounter Visit Diagnoses Not on filedocumented in this encounter"
--- OUTSIDE RECORDS SUMMARY | ~2019-09-30 | XMS | Encounter Summary ---
Demographics + + + | Address | [address] | | | [place] [address] | + + + | Home Phone [...] | Organization | [facility] | | | and [...] Providers + +------+ + | Care Technical Publications Writer Name | Role | Phone | [...] Results | | 2018 | | [facility] | ASSISTANT RESEARCH SCIENTIST | | | | | [facility] [address] | | | | | | [facility] [place], | | | | | | [place] [address] | | | | | | [phone] | | | +--------+ + + + [...] | | | | | | [place] [address] | | | | | | [phone] | | | | | | | | +--------+ + + + + | 10/30/ | Office | Primary Care | Erika Ernst, | | | 2019 | Visit | | DO [address] | | | | | | [place] [address] | | | | | | [phone] | | | | | | | [...] [place] | | | | | | [address] | | | | | | [phone] | | | | | | | | +--------+ + + + + | 02/09/ | Office | Neurology | Dhara, | | | 2019 | Visit | | DWA[address] [place], | | | | | | [place] [address] | | | | | | [phone] | | | | | | | | +--------+ + + + + documented as of this encounter Visit Diagnoses Not on filedocumented in this encounter"
--- OUTSIDE RECORDS SUMMARY | ~2019-09-30 | XMS | Encounter Summary ---
Demographics + + + | Address | [address] | | | [place] [address] | + + + | Home Phone [...] Team Providers + +------+ + | Care Forensic Technician Name | Role | Phone | [...] | [place], [place] | [place] [address] | | | | | [address] | [phone] | | | | | [phone] | | | +--------+ + + + [...] | | | | | [place] [address] | | | | | | [phone] | | | | | | | | +--------+ + + + + | 10/30/ | Office | Primary Care | Erika Ernst, | | | 2019 | Visit | | DO [address] [place] | | | | | | [place] [address] | | | | | | [phone] | | | | | | | [...] [place] | | | | | | [address] | | | | | | [phone] | | | | | | | | +--------+ + + + + | 02/09/ | Office | Neurology | Dhara, | | | 2019 | Visit | | DWAINE [address] [place], | | | | | | [place] [address] | | | | | | [phone] | | | | | | | | +--------+ + + + + documented as of this encounter Visit Diagnoses Not on filedocumented in this encounter"
--- OUTSIDE RECORDS SUMMARY | ~2019-09-30 | XMS | Encounter Summary ---
Demographics + + + | Address | [address] | | | [place] [address] | + + + | Home Phone [...] Providers + +------+ + | Care Boom Master Name | Role | Phone | + [...] [place] | | | | | | [address] | | | | | | [phone] | | | +--------+ + + + [...] 2019 | Visit | | DO [address] | | | | | | [place] [address] | | | | | | [phone] | | | | | | | | +--------+ + + + + | 01/29/ | Office | Primary Care | Erika Ernst, | | | 2019 | Visit | | DO [address] | | | | | | [place] [address] | | | | | | [phone] | | | | | | | [...] [place] | | | | | | [address] | | | | | | [phone] | | | | | | | | +--------+ + + + + | 02/09/ | Office | Neurology | Dhara, | | | 2019 | Visit | | DWAINE Ross [address] | | | | [address] [place], | | | | | | [place] [address] | | | | | | [phone] | | | | | | | | +--------+ + + + + documented as of this encounter Visit Diagnoses Not on filedocumented in this encounter"
--- OUTSIDE RECORDS SUMMARY | ~2019-09-30 | XMS | Encounter Summary ---
Demographics + + + | Address | [address] | | | [place] [address] | + + + | Home Phone [...] Team Providers + +------+ + | Care Benzol Still Operator Name | Role | Phone | [...] | | | | encounter | [place] [address] | [place], [place] | | | | | | Phone: | [address] Phone: | | | | | | [phone] | [phone] | | | | | | Fax: | Fax: | | | | | | [phone] | [phone] | + + + + + + [...] | [facility] | [place] [address] | encounter (Primary | | | | [address] [place], | [phone] | Dx) | | | | [place] [address] | | | | | | [phone] | | | +--------+ + + + [...] | | 2018 | Visit | | [address] | | | | | | [place] [address] | | | | | | [phone] | | | | | | | | +--------+ + + + + | 10/30/ | Office | Primary Care | Erika Ernst, | | | 2019 | Visit | | DO [address] | | | | | | [place] [address] | | | | | | [phone] | | | | | | | [...] [place] | | | | | | [address] | | | | | | [phone] | | | | | | | | +--------+ + + + + | 02/09/ | Office | Neurology | Dhara, | | | 2019 | Visit | | DWAINE Ross [address] | | | | [address] [place], | | | | | | [place] [address] | | | | | | [phone] | | | | | | | [...]
--- OUTSIDE RECORDS SUMMARY | ~2019-09-30 | XMS | Encounter Summary ---
Demographics + + + | Address | [address] | | | [place] [address] | + + + | Home Phone [...] Providers + +------+ + | Care Wool Hanker Name | Role | Phone | + [...] | | | | | | [place] [address] | [place] | | | | | | Phone: | [address] Phone: | | | | | | [phone] | [phone] | | | | | | Fax: | Fax: | | | | | | [phone] | [phone] | +--------+ + + + + + [...] | | | | disorder) | [place] [address] | [place], [place] | | | | | | Phone: | [address] | | | | | | [phone] | Phone: | | | | | | Fax: | [phone] | | | | | | [phone] | Fax: | | | | | | | [phone] | +--------+ + + + + + [...] | MEDICAL CL[facility] [address] | [place] [address] | (Primary Dx); TMJ | | | | [address] [place], | [phone] | (temporomandibular | | | | [place] [address] | | joint disorder); | | | | [phone] | | Anxiety; Short-term | | | [...] popping of bilateral joints and does wear deck mechanic at night but would like to see [...] to the short term memory issues. No correction loss. She also has had increased stress [...] 10 mg daily. Referral to PT at [facility] for TMJ dysfunction. Increase Buspa r [...] | | | | | [place] [address] | | | | | | [phone] | | | | | | | | +--------+ + + + + | 10/30/ | Office | Primary Care | Erika Ernst, | | | 2019 | Visit | | DO [address] | | | | | | [place] [address] | | | | | | [phone] | | | | | | | [...] [place] | | | | | | [address] | | | | | | [phone] | | | | | | | | +--------+ + + + + | 02/09/ | Office | Neurology | Dhara, | | | 2019 | Visit | | DWAINE Ross [address] | | | | | | [address] [place], | | | | | | [place] [address] | | | | | | [phone] | | | | | | | [...]
--- OUTSIDE RECORDS SUMMARY | ~2019-09-30 | XMS | Encounter Summary ---
Demographics + + + | Address | [address] | | | [place] [address] | + + + | Home Phone [...] Team Providers + +------+ + | Care Delimer Name | Role | Phone | + [...] | | | | s (de | [place], [place] | [place] [address] | | | | | quervain) | [address] | Phone: | | | | | Pain in | Phone: | [phone] | | | | | right wrist | [phone] | Fax: | | | | | Procedures | Fax: | [phone] | | | | | OT TREAT | [phone] | | +--------+--------+ + + + + [...] | | [address] [place] | [place] [address] | (Primary Dx); Right | | | | [place], [place] | [phone] | wrist pain | | | | [address] | | | | | | [phone] | Nakia Koo OT | | +--------+ [...] | 11/26/19 | | | (VITAMIN D3) 60053 | mouth Once a week | tablet | | 19 | 9 | | units TABS | for 16 doses. | | | | | + + + +---------+ + + | D3-50 81298 units | | | 0 | 12/13/19 [...] Koo, OT - 12/13/2018 1:42 PM PDT [facility] OT [address] [place] [address] Occupational Therapy Daily Treatment Note Date: 12/13/2018 [...] loading and prop rioception at tabletop, 5' guyline operator strengthening 1-2x/day light resistance, and second [...] period and is compliant with wrist and guyline operator strengthening exercises. She does still hav e deficits in guyline operator strength and wrist stability as well as pain with daily activities. Her j ob description may be changing which would decrease the physical demands of her work, making it more appropriate for her current status. She continues to benefit from Animal Cytologist apy to maximize her guyline operator strength and wrist stability following this injury and return her t o prior level of function. 10/30/2018 - REASON FOR RE-CERTIFICATION: Andrea has received 12 Occupational Therapy treatme nts since 08/07/2018 following her right wrist surgery. She has regained full AROM of the rig ht wrist but continues to have right wrist, guyline operator and pinch weakness and significant pain [...] in 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, and guyline operator and pinch weakness in the right [...] | | | | | [place] [address] | | | | | | [phone] | | | | | | | | +--------+ + + + + | 10/30/ | Office | Primary Care | Erika Ernst, | | | 2019 | Visit | | DO [address] | | | | | | [place] [address] | | | | | | [phone] | | | | | | | [...] [place] | | | | | | [address] | | | | | | [phone] | | | | | | | | +--------+ + + + + | 02/09/ | Office | Neurology | Dhara, | | | 2019 | Visit | | CAITIE RossP [address] | | | | | | [address] [place], | | | | | | [place] [address] | | | | | | [phone] | | | | | | | | +--------+ + + + + documented as of this encounter Visit Diagnoses + + | Diagnosis | + + | Radial styloid tenosynovitis - Primary | + + | Right wrist pain Pain in joint, forearm | + + documented in this encounter
--- OUTSIDE RECORDS SUMMARY | ~2019-09-30 | XMS | Encounter Summary ---
Demographics + + + | Address | [address] | | | [place] [address] | + + + | Home Phone [...] Team Providers + +------+ + | Care Double Backer Name | Role | Phone | + [...] | Encounter | HOSPITAL XRAY [facility] | FINAL INSPECTOR SHUTTLE [address] [facility] | | | | | [address] [place] | [place] [address] | | | | | [place], [place] | [phone] | | | | | [address] | | | | | | [phone] | | | +--------+ + + + [...] | 19 | 9 | | [facility]) | | | | | | | [...] | | | | | [place] [address] | | | | | | [phone] | | | | | | | | +--------+ + + + + | 10/30/ | Office | Primary Care | Erika Ernst, | | | 2019 | Visit | | DO [address] | | | | | | [place] [address] | | | | | | [phone] | | | | | | | [...] [place] | | | | | | [address] | | | | | | [phone] | | | | | | | | +--------+ + + + + | 02/09/ | Office | Neurology | Dhara, | | | 2019 | Visit | | DWAINE Ross [address] | | | | | [address] [place], | | | | | | [place] [address] | | | | | | [phone] | | | | | | | [...] .IMPRESSION: IMPRESSION:No acute | | findingDictated by: Crhis Bedolla | | 6:55 PM | |None [...]
--- OUTSIDE RECORDS SUMMARY | ~2019-09-30 | XMS | Encounter Summary ---
Demographics + + + | Address | [address] | | | [place] [address] | + + + | Home Phone [...] Providers + +------+ + | Care Financial Aids Officer Name | Role | Phone | + +------+ + | Erika Ernst DO | PCP | | + +------+ + Encounter Details +--------+ + + + + | Date | Type | Department | Care Team | Description | +--------+ + + + + | 10/17/ | [facility] [place] | Erika Ernst, | Screening for breast | | 2019 | Encounter | [facility] | DO [address] | cancer | | | | [place] | [place] [address] | | | | | Mammography [address] | [phone] | | | | | [address] [place] [address] [place] | | | | | | [place], [place] | | | | | | [address] | | | | | | [phone] | | | +--------+ + + + [...] | | | | | [place] [address] | | | | | | [phone] | | | | | | | | +--------+ + + + + | 10/30/ | Office | Primary Care | Erika Ernst, | | | 2019 | Visit | | DO [address] | | | | | | [place] [address] | | | | | | [phone] | | | | | | | [...] [place] | | | | | | [address] | | | | | | [phone] | | | | | | | | +--------+ + + + + | 02/09/ | Office | Neurology | Dhara, | | | 2019 | Visit | | DWAINE Ross [address] | | | | | | [address] [place], | | | | | | [place] [address] | | | | | | [phone] | | | | | | | [...]
--- OUTSIDE RECORDS SUMMARY | ~2019-09-30 | XMS | Encounter Summary ---
Demographics + + + | Address | [address] | | | [place] [address] | + + + | Home Phone [...] Team Providers + +------+ + | Care Cheese Tester Name | Role | Phone | [...] Medication Refill | | 2018 | | [facility] | DO [address] | | | | | MEDICAL CLINIC [address] | [place] [address] | | | | | [address] [place], | [phone] | | | | | [place] [address] | | | | | | [phone] | | | +--------+--------+ + + + [...] | | | | | [place] [address] | | | | | | [phone] | | | | | | | | +--------+ + + + + | 10/30/ | Office | Primary Care | Erika Ernst, | | | 2019 | Visit | | DO [address] | | | | | | [place] [address] | | | | | | [phone] | | | | | | | [...] [place] | | | | | | [address] | | | | | | [phone] | | | | | | | | +--------+ + + + + | 02/09/ | Office | Neurology | Dhara, | | | 2020 | Visit | | DWAINE Ross [address] | | | | | | [address] [place], | | | | | | [place] [address] | | | | | | [phone] | | | | | | | | +--------+ + + + + documented as of this encounter Visit Diagnoses Not on filedocumented in this encounter"
--- OUTSIDE RECORDS SUMMARY | ~2019-09-30 | XMS | Encounter Summary ---
Demographics + + + | Address | [address] | | | [place] [address] | + + + | Home Phone [...] Team Providers + +------+ + | Care Casino Cashier Name | Role | Phone | [...] 05/13/ | Telephone | [place] [facility] | Erika Ernst, | Medication Related | | 2019 | | [facility] | [address] | (Medication possible | | | | MEDICAL CLINIC [address] [facility] [place] [address] | making BP to | | | | [address] [place], | [phone] | increase) | | | | [place] [address] | | | | | | [phone] | | | +--------+ + + + [...] | | | | | [place] [address] | | | | | | [phone] | | | | | | | | +--------+ + + + + | 10/30/ | Office | Primary Care | Erika Ernst, | | | 2019 | Visit | | DO [address] | | | | | | [place] [address] | | | | | | [phone] | | | | | | | [...] [place] | | | | | | [address] | | | | | | [phone] | | | | | | | | +--------+ + + + + | 02/09/ | Office | Neurology | Dhara, | | | 2019 | Visit | | [address]WAINE Ross [address] | | | | | | [address] [place], | | | | | | [place] [address] | | | | | | [phone] | | | | | | | | +--------+ + + + + documented as of this encounter Visit Diagnoses Not on filedocumented in this encounter"
--- OUTSIDE RECORDS SUMMARY | ~2019-09-30 | XMS | Encounter Summary ---
Demographics + + + | Address | [address] | | | [place] [address] | + + + | Home Phone [...] Team Providers + +------+ + | Care Grazing Examiner Name | Role | Phone | [...] [place] | | | | | | [address] | (Fax) | | | | | [phone] | | | +--------+ + + + [...] 2018 | Visit | | DO [address] [facility] | | | | | | [place] [address] | | | | | | [phone] | | | | | | | | +--------+ + + + + | 10/30/ | Office | Primary Care | Eirka Ernst, | | | 2019 | Visit | | DO [address] [place] | | | | | | [place] [address] | | | | | | [phone] | | | | | | | [...] [place] | | | | | | [address] | | | | | | [phone] | | | | | | | | +--------+ + + + + | 02/09/ | Office | Neurology | Dhara, | | | 2020 | Visit | | [address]WAINE Ross [address] | | | | | | [address] [place], | | | | | | [place] [address] | | | | | | [phone] | | | | | | | | +--------+ + + + + documented as of this encounter Visit Diagnoses Not on filedocumented in this encounter"
--- OUTSIDE RECORDS SUMMARY | ~2019-09-30 | XMS | Encounter Summary ---
Demographics + + + | Address | [address] | | | [place] [address] | + + + | Home Phone [...] Team Providers + +------+ + | Care Procurement Consultant Name | Role | Phone | + +------+ + PCP | Unavailable | + +------+ + Encounter Details +--------+ + + + + | Date | Type | Department | Care Team | Description | +--------+ + + + + | 12/10/ | [facility] | Caro Zendejas | | | 2013 | Encounter | [facility] | [place], [place] [address] | | | | | MEDICAL CLIN[facility] [address] | [facility], [place] | | | | | 4TH [facility], | [address] | | | | | [place] [address] | [phone] | | | | | [phone] | | | +--------+ + + + [...] | | | | | [place] [address] | | | | | | [phone] | | | | | | | | +--------+ + + + + | 10/30/ | Office | Primary Care | Erika Ernst, | | | 2019 | Visit | | DO [address] | | | | | | [place] [address] | | | | | | [phone] | | | | | | | [...] [place] | | | | | | [address] | | | | | | [phone] | | | | | | | | +--------+ + + + + | 02/09/ | Office | Neurology | Dhara, | | | 2020 | Visit | | DWAINE Ross [address] | | | | | | [address] [place], | | | | | | [place] [address] | | | | | | [phone] | | | | | | | | +--------+ + + + + documented as of this encounter Visit Diagnoses Not on filedocumented in this encounter"
--- OUTSIDE RECORDS SUMMARY | ~2019-09-30 | XMS | Encounter Summary ---
Demographics + + + | Address | [address] | | | [place] [address] | + + + | Home Phone [...] Organization | [facility] | | | [...] Team Providers + +------+ + | Care Gate Watch Name | Role | Phone | + +------+ + PCP | Unavailable | + +------+ + Encounter Details +--------+ + + + + | Date | Type | Department | Care Team | Description | +--------+ + + + + | 12/23/ | Hospital | [place] [facility] | Heather Yip, | | | 2016 | Encounter | [facility] | LOCKSTITCH BACK MAK[address] | | | | | [address] [place] | [place] [address] | | | | | [place], [place] | [phone] | | | | | [address] | | | | | | [phone] | | | +--------+ + + + [...] | | | | | [place] [address] | | | | | | [phone] | | | | | | | | +--------+ + + + + | 10/30/ | Office | Primary Care | Erika Ernst, | | | 2019 | Visit | | DO [address] | | | | | | [place] [address] | | | | | | [phone] | | | | | | | [...] [place] | | | | | | [address] | | | | | | [phone] | | | | | | | | +--------+ + + + + | 02/09/ | Office | Neurology | Dhara, | | | 2019 | Visit | | [place], [facility] [address] | | | | | | 4TH [facility], | | | | | | [place] [address] | | | | | | [phone] | | | | | | | [...] | NEGATIVE | EXTERNAL | | | [place] | | | LAB | | + [...]
--- OUTSIDE RECORDS SUMMARY | ~2019-09-30 | XMS | Encounter Summary ---
Demographics + + + | Address | [address] | | | [place] [address] | + + + | Home Phone [...] + +------+ + | Care Home Care Coordinator Name | Role | Phone | + +------+ + PCP | Unavailable | + +------+ + Encounter Details +--------+ + + + + | Date | Type | Department | Care Team | Description | +--------+ + + + + | 07/16/ | [facility] | Spenser Roberts NP | | | 2012 | Encounter | [facility] | [address], | | | | | MEDICAL CLIN[facility] [address] | [place] [address] | | | | | [address] [facility], | [phone] | | | | | [place] [address] | | | | | | [phone] | | | +--------+ + + + [...] | | | | | [place] [address] | | | | | | [phone] | | | | | | | | +--------+ + + + + | 10/30/ | Office | Primary Care | Erika Ernst, | | | 2019 | Visit | | DO [address] | | | | | | [place] [address] | | | | | | [phone] | | | | | | | [...] [place] | | | | | | [address] | | | | | | [phone] | | | | | | | | +--------+ + + + + | 02/09/ | Office | Neurology | Dhara, | | | 2020 | Visit | | DWAINE Ross [address] | | | | | | [address] [place], | | | | | | [place] [address] | | | | | | [phone] | | | | | | | | +--------+ + + + + documented as of this encounter Visit Diagnoses Not on filedocumented in this encounter"
--- OUTSIDE RECORDS SUMMARY | ~2019-09-30 | XMS | Encounter Summary ---
Demographics + + + | Address | [address] | | | [place] [address] | + + + | Home Phone [...] Providers + +------+ + | Care Disaster Director Name | Role | Phone | + +------+ + PCP | Unavailable | + +------+ + Encounter Details +--------+ + + + + | Date | Type | Department | Care Team | Description | +--------+ + + + + | [facility] Denise Mcgregor | | | 2016 | Encounter | [facility] | G, PEDIATRIC HOSPITALIST [address] | | | | | MEDICAL CLINIC [facility] | [facility] [place] | | | | | [address] [facility], | [address] | | | | | [place] [address] | [phone] | | | | | [phone] | | | +--------+ + + + [...] | | | | | [place] [address] | | | | | | [phone] | | | | | | | | +--------+ + + + + | 10/30/ | Office | Primary Care | Erika Ernst, | | | 2019 | Visit | | DO [address] | | | | | | [place] [address] | | | | | | [phone] | | | | | | | [...] [place] | | | | | | [address] | | | | | | [phone] | | | | | | | | +--------+ + + + + | 02/09/ | Office | Neurology | Dhara, | | | 2019 | Visit | | DWAINE Ross [address] | | | | | | [address] [place], | | | | | | [place] [address] | | | | | | [phone] | | | | | | | | +--------+ + + + + documented as of this encounter Visit Diagnoses Not on filedocumented in this encounter"
--- OUTSIDE RECORDS SUMMARY | ~2019-09-30 | XMS | Encounter Summary ---
Demographics + + + | Address | [address] | | | [place] [address] | + + + | Home Phone [...] Team Providers + +------+ + | Care Fresh Meat Grader Name | Role | Phone | [...] | [address] [place], [place] | [place] [address] | | | | | [address] | [phone] | | | | | [phone] | | | +--------+ + + + [...] | | | | | [place] [address] | | | | | | [phone] | | | | | | | | +--------+ + + + + | 10/30/ | Office | Primary Care | Erika Ernst, | | | 2019 | Visit | | DO [address] | | | | | | [place] [address] | | | | | | [phone] | | | | | | | [...] [place] | | | | | | [address] | | | | | | [phone] | | | | | | | | +--------+ + + + + | 02/09/ | Office | Neurology | Dhara, | | | 2020 | Visit | | [address] | | | | | | [address] [place], | | | | | | [place] [address] | | | | | | [phone] | | | | | | | | +--------+ + + + + documented as of this encounter Visit Diagnoses Not on filedocumented in this encounter"
--- OUTSIDE RECORDS SUMMARY | ~2019-09-30 | XMS | Encounter Summary ---
Demographics + + + | Address | [address] | | | [place] [address] | + + + | Home Phone [...] Team Providers + +------+ + | Care Infection Prevention Coordinator Name | Role | Phone | [...] [facility] | DO [address] [place] | environmental | | | | MEDICAL CLINIC [address] | [facility] [place] [address] | allergies (Primary | | | | [address] [place], | [phone] | Dx); Thyroid cyst | | | | [place] [address] | | | | | | [phone] | | | +--------+---------+ + + + [...] | | | | | [place] [address] | | | | | | [phone] | | | | | | | | +--------+ + + + + | 10/30/ | Office | Primary Care | Erika Ernst, | | | 2019 | Visit | | DO [address] | | | | | | [place] [address] | | | | | | [phone] | | | | | | | [...] [place] | | | | | | [address] | | | | | | [phone] | | | | | | | | +--------+ + + + + | 02/09/ | Office | Neurology | Dhara, | | | 2019 | Visit | | [address] [address] | | | | | | [address] 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
--- OUTSIDE RECORDS SUMMARY | ~2019-09-30 | XMS | Encounter Summary ---
Demographics + + + | Address | [address] | | | [place] [address] | + + + | Home Phone [...] Providers + +------+ + | Care Electric Golf Cart Repairers Name | Role | Phone | + [...] [place] | | | | | | [address] | | | | | | [phone] | | | +--------+ + + + [...] | | | | | [place] [address] | | | | | | [phone] | | | | | | | | +--------+ + + + + | 10/30/ | Office | Primary Care | Erika Ernst, | | | 2019 | Visit | | DO [address] [place] | | | | | | [place] [address] | | | | | | [phone] | | | | | | | [...] [place] | | | | | | [address] | | | | | | [phone] | | | | | | | | +--------+ + + + + | 02/09/ | Office | Neurology | Dhara, | | | 2019 | Visit | | [address] | | | | | | [address] [place], | | | | | | [place] [address] | | | | | | [phone] | | | | | | | | +--------+ + + + + documented as of this encounter Visit Diagnoses Not on filedocumented in this encounter"
--- OUTSIDE RECORDS SUMMARY | ~2019-09-30 | XMS | Encounter Summary ---
Demographics + + + | Address | [address] | | | [place] [address] | + + + | Home Phone [...] Team Providers + +------+ + | Care Crane Manager Name | Role | Phone | [...] Essential | | 2018 | Visit | [facility] | DO [address] | hypertension | | | | MEDICAL CLINIC [address] | [place] [address] | (Primary Dx); Asthma | | | | [address] [place], | [phone] | due to | | | | [place] [address] | | environmental | | | | [phone] | | allergies; Asthma, | | | [...] and normal heart sounds. Exam reveals no ursso p and no friction rub. No murmur [...] | | | | | [place] [address] | | | | | | [phone] | | | | | | | | +--------+ + + + + | 10/30/ | Office | Primary Care | Erika Ernst, | | | 2019 | Visit | | DO [address] | | | | | | [place] [address] | | | | | | [phone] | | | | | | | [...] [place] | | | | | | [address] | | | | | | [phone] | | | | | | | | +--------+ + + + + | 02/09/ | Office | Neurology | Dhara, | | | 2019 | Visit | | DWAINE Ross [address] [place], | | | | | | [place] [address] | | | | | | [phone] | | | | | | | [...]
--- OUTSIDE RECORDS SUMMARY | ~2019-09-30 | XMS | Encounter Summary ---
Demographics + + + | Address | [address] | | | [place] [address] | + + + | Home Phone [...] Providers + +------+ + | Care Nurse Unit Manager Name | Role | Phone | + +------+ + PCP | Unavailable | + +------+ + Encounter Details +--------+ + + + + | Date | Type | Department | Care Team | Description | +--------+ + + + + | 09/12/ | [facility] | Amaya Varner NP | | | 2016 | Encounter | [facility] | [address] | | | | | [facility] [address] | [place], [place] | | | | | [address] [place], | [address] | | | | | [place] [address] | [phone] | | | | | [phone] | | | +--------+ + + + [...] | | | | | [place] [address] | | | | | | [phone] | | | | | | | | +--------+ + + + + | 10/30/ | Office | Primary Care | Erika Ernst, | | | 2019 | Visit | | DO [address] | | | | | | [place] [address] | | | | | | [phone] | | | | | | | [...] [place] | | | | | | [address] | | | | | | [phone] | | | | | | | | +--------+ + + + + | 02/09/ | Office | Neurology | Dhara, | | | 2019 | Visit | | DWAINE Ross [address] [place], | | | | | | [place] [address] | | | | | | [phone] | | | | | | | | +--------+ + + + + documented as of this encounter Visit Diagnoses Not on filedocumented in this encounter"
--- OUTSIDE RECORDS SUMMARY | ~2019-09-30 | XMS | Encounter Summary ---
Demographics + + + | Address | [address] | | | [place] [address] | + + + | Home Phone [...] Providers + +------+ + | Care Car Inspection And Repair Manager Name | Role | Phone [...] | [place], [place] | [place] [address] | initial encounter | | | | [address] | [phone] | (Primary Dx) | | | | [phone] | | | +--------+---------+ + + + [...] had subsequent surgery by Dr. Gandhi in [facility] for her right wrist. At that [...] cancer Maternal Grandmother Heart attack Maternal Aunt [place] Social History Tobacco Use Smoking status: Never [...] made to ensure accuracy. However, inadvertent computerized shrimp peeling machine tender errors may be pre sent. documented in thi s encounter Plan of Treatment +--------+ + + + + | Date | Type | Specialty | Care Team | Description | +--------+ + + + + | 10/01/ | Office | Primary Care | Erika Ernst, | | | 2018 | Visit | | DO [address] | | | | | | [place] [address] | | | | | | [phone] | | | | | | | | +--------+ + + + + | 10/30/ | Office | Primary Care | Erika Ernst, | | | 2019 | Visit | | DO [address] | | | | | | [place] [address] | | | | | | [phone] | | | | | | | [...] [place] | | | | | | [address] | | | | | | [phone] | | | | | | | | +--------+ + + + + | 02/09/ | Office | Neurology | Dhara, | | | 2019 | Visit | | DWAINE Ross [address] | | [address] [place], | | | | | | [place] [address] | | | | | | [phone] | | | | | | | [...] + + | [place] [facility] | [address] | [place] [address] | [phone] | | [facility] | | | [...] | mL/min/1.73m2 | [facility] | | | [facility] | | | [...] + + | [place] [facility] | [address] | [place] [address] | [phone] | | HOSPITAL [facility] | | | | + + + + + documented in this encounter Visit Diagnoses + + | Diagnosis | + + | Hand and wrist extensor tendon rupture, left, initial encounter - Primary | + + documented in this encounter"
--- OUTSIDE RECORDS SUMMARY | ~2019-09-30 | XMS | Encounter Summary ---
Demographics + + + | Address | [address] | | | [place] [address] | + + + | Home Phone [...] Providers + +------+ + | Care Assistant Shift Supervisor Name | Role | Phone | [...] | [address] [place] | [address] [facility], | | | | | [place], [place] | [place] [address] | | | | | [address] | [phone] | | | | | [phone] | | | +--------+ + + + [...] | | | | | [place] [address] | | | | | | [phone] | | | | | | | | +--------+ + + + + | 10/30/ | Office | Primary Care | Erika Ernst, | | | 2019 | Visit | | DO [address] | | | | | | [place] [address] | | | | | | [phone] | | | | | | | [...] [place] | | | | | | [address] | | | | | | [phone] | | | | | | | | +--------+ + + + + | 02/09/ | Office | Neurology | Dhara, | | | 2019 | Visit | | Cody, [facility] [address] | | | | | | [address] [facility], | | | | | | [place] [address] | | | | | | [phone] | | | | | | | [...]
--- OUTSIDE RECORDS SUMMARY | ~2019-09-30 | XMS | Encounter Summary ---
Demographics + + + | Address | [address] | | | [place] [address] | + + + | Home Phone [...] Team Providers + +------+ + | Care Chiropractic Practice Manager Name | Role | Phone [...] due | Erika Salter DO | Denis Queevdo, | | | Required | | to | [address] | [address] | | | | | [address]a | [place], | [address] [place] | | | | | l allergies | [place] [address] | [place], [place] | | | | | | Phone: | [phone] Phone: | | | | | | [phone] | [phone] | | | | | | Fax: | Fax: | | | | | | [phone] | [phone] | +--------+ + + + + + [...] | [facility] | [place] [address] | (Primary Dx); | | | [address] [place], | [phone] | Anxiety; Depression, | | | | [place] [address] | | unspecified | | | | [phone] | | depression type; | | | [...] anxiety as well. She did see the allergiest/coding director and had allergy testing and symbicort was [...] | | | | | [place] [address] | | | | | | [phone] | | | | | | | | +--------+ + + + + | 10/30/ | Office | Primary Care | Erika Ernst, | | | 2019 | Visit | | DO [address] | | | | | | [place] [address] | | | | | | [phone] | | | | | | | [...] [place] | | | | | | [address] | | | | | | [phone] | | | | | | | | +--------+ + + + + | 02/09/ | Office | Neurology | Dhara, | | | 2019 | Visit | | DWAINE Ross [address] | | | | [address] [place], | | | | | | [place] [address] | | | | | | [phone] | | | | | | | [...]
--- OUTSIDE RECORDS SUMMARY | ~2019-09-30 | XMS | Encounter Summary ---
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 [address] | | | | | CENTER [address] | [place] | | | | | [place] | [address] | | | | | [address] | | | | | | [phone] | | | +--------+ + + + [...] | | | | | [place] [address] | | | | | | [phone] | | | | | | | | +--------+ + + + + | 10/30/ | Office | Primary Care | Erika Ernst, | | | 2019 | Visit | | DO [address] | | | | | | [place] [address] | | | | | | [phone] | | | | | | | [...] [place] | | | | | | [address] | | | | | | [phone] | | | | | | | | +--------+ + + + + | 02/09/ | Office | Neurology | Dhara, | | | 2020 | Visit | | DWAINE Ross [address] | | | [address] [place], | | | | | | [place] [address] | | | | | | [phone] | | | | | | | | +--------+ + + + + documented as of this encounter Visit Diagnoses Not on filedocumented in this encounter"
--- OUTSIDE RECORDS SUMMARY | ~2019-09-30 | XMS | Encounter Summary ---
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 [address] | | | | | CENTER [address] | [place] | | | | | [place] | [address] | | | | | [address] | | | | | | [phone] | | | +--------+ + + + [...] | | | | | [place] [address] | | | | | | [phone] | | | | | | | | +--------+ + + + + | 10/30/ | Office | Primary Care | Erika Ernst, | | | 2019 | Visit | | DO [address] | | | | | | [place] [address] | | | | | | [phone] | | | | | | | [...] [place] | | | | | | [address] | | | | | | [phone] | | | | | | | | +--------+ + + + + | 02/09/ | Office | Neurology | Dhara, | | | 2020 | Visit | | [address]WA[address] Ross [address] | | | [address] [place], | | | | | | [place] [address] | | | | | | [phone] | | | | | | | | +--------+ + + + + documented as of this encounter Visit Diagnoses Not on filedocumented in this encounter"
--- OUTSIDE RECORDS SUMMARY | ~2019-09-30 | XMS | Encounter Summary ---
Demographics + + + | Address | [address] | | | [place] [address] | + + + | Home Phone [...] + +------+ + | Care Hazardous Materials Analyst Name | Role | Phone | [...] | | | | s (de | [place], [place] | [place] [address] | | | | | quervain) | [address] | Phone: | | | | | Pain in | Phone: | [phone] | | | | | right wrist | [phone] | Fax: | | | | | Procedures | Fax: | [phone] | | | | | OT TREAT | [phone] | | +--------+--------+ + + + + [...] | | [address] [place] | [place] [address] | (Primary Dx); Right | | | | [place], [place] | [phone] | wrist pain | | | | [address] | | | | | | [phone] | Michela Azevedo, | | | | [...] original. [facility] OT [address] [place] [address] Occupational Therapy Daily Treatment Note Date: 11/23/2018 [...] response to last session Interventions HEP : sea air land officer strengthening to pink tputty, added submaximal 4 way wrist isometrics OT INTERVENTION 2: TE (35 minutes): UE cycle 85-105 thmoas x 10 minutes (skilled due to the [...] wrist but continues to have right wrist, sea air land officer and pinch weakness and significant pain (3 [...] in 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, and sea air land officer and pinch weakness in the right hand [...] | | | | | [place] [address] | | | | | | [phone] | | | | | | | | +--------+ + + + + | 10/30/ | Office | Primary Care | Erika Ernst, | | | 2019 | Visit | | DO [address] | | | | | | [place] [address] | | | | | | [phone] | | | | | | | [...] [place] | | | | | | [address] | | | | | | [phone] | | | | | | | | +--------+ + + + + | 02/09/ | Office | Neurology | Dhara, | | | 2019 | Visit | | [address]WA[address] | | | [address] [place], | | | | | | [place] [address] | | | | | | [phone] | | | | | | | | +--------+ + + + + documented as of this encounter Visit Diagnoses + + | Diagnosis | + + | Radial styloid tenosynovitis - Primary | + + | Right wrist pain Pain in joint, forearm | + + documented in this encounter
--- OUTSIDE RECORDS SUMMARY | ~2019-09-30 | XMS | Encounter Summary ---
Demographics + + + | Address | [address] | | | [place] [address] | + + + | Home Phone [...] Team Providers + +------+ + | Care Golf Player Assistant Name | Role | Phone | + +------+ + PCP | Unavailable | + +------+ + Encounter Details +--------+ + + + + | Date | Type | Department | Care Team | Description | +--------+ + + + + | 08/17/ | [facility] | Denise Mcgregor | | | 2016 | Encounter | HOSPITAL LABORATORY | G, SEARCH SPECIALIST [address] | | | | | [address] [place] | [place] | | | | | [place] | [address] | | | | | [address] | [phone] | | | | | [phone] | | | +--------+ + + + [...] | | | | | [place] [address] | | | | | | [phone] | | | | | | | | +--------+ + + + + | 10/30/ | Office | Primary Care | Erika Ernst, | | | 2019 | Visit | | DO [address] | | | | | | [place] [address] | | | | | | [phone] | | | | | | | [...] [place] | | | | | | [address] | | | | | | [phone] | | | | | | | | +--------+ + + + + | 02/09/ | Office | Neurology | Dhara, | | | 2019 | Visit | | DWAINE Ross [address] | | | [address] [place], | | | | | | [place] [address] | | | | | | [phone] | | | | | | | [...]
--- OUTSIDE RECORDS SUMMARY | ~2019-09-30 | XMS | Encounter Summary ---
Demographics + + + | Address | [address] | | | [place] [address] | + + + | Home Phone [...] Team Providers + +------+ + | Care Solution Director Name | Role | Phone | [...] | | 2017 | | [facility] | DO [address] | | | | | MEDICAL CLINIC [address] | [place] [address] | | | | | [address] [place], | [phone] | | | | | [place] [address] | | | | | | [phone] | | | +--------+--------+ + + + [...] | | | | | [place] [address] | | | | | | [phone] | | | | | | | | +--------+ + + + + | 10/30/ | Office | Primary Care | Erika Ernst, | | | 2019 | Visit | | DO [address] | | | | | | [place] [address] | | | | | | [phone] | | | | | | | [...] [place] | | | | | | [address] | | | | | | [phone] | | | | | | | | +--------+ + + + + | 02/09/ | Office | Neurology | Dhara, | | | 2019 | Visit | | [address]WA[address] | | [address] [place], | | | | | | [place] [address] | | | | | | [phone] | | | | | | | | +--------+ + + + + documented as of this encounter Visit Diagnoses + + | Diagnosis | + + | Hypertension, unspecified type - Primary | + + documented in this encounter"
--- OUTSIDE RECORDS SUMMARY | ~2019-09-30 | XMS | Encounter Summary ---
Demographics + + + | Address | [address] | | | [place] [address] | + + + | Home Phone [...] | [facility] | | | and [...] Team Providers + +------+ + | Care Science Technician Name | Role | Phone | [...] | | | | s (de | [place], [place] | [place] [address] | | | | | quervain) | [address] | Phone: | | | | | Pain in | Phone: | [phone] | | | | | right wrist | [phone] | Fax: | | | | | Procedures | Fax: | [phone] | | | | | OT TREAT | [phone] | | +--------+--------+ + + + + [...] | | [address] [place] | [place] [address] | (Primary Dx); Right | | | | [place], [place] | [phone] | wrist pain | | | | [address] | | | | | | [phone] | Nakia Koo OT | | +--------+ [...] | 11/26/19 | | | (VITAMIN D3) [address]93[address] | mouth Once a week | tablet [...] Koo, OT - 12/21/2018 9:31 AM PDT [facility] OT [address] [place] [address] Occupational Therapy Progress Assessment Date: 12/21/2018 Patient [...] jar: 3 - Moderate Difficulty 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 Plan to hold therapy until furth diagnostic work is done. Pt provided with [...] period and is compliant with wrist and damage inside adjuster strengthening exercises. She does still have deficits in damage inside adjuster strength and wrist stability as well as pain with daily activities. Her arya b description may be changing which would decrease the physical demands of her work, making it more appropriate for her current status. She continues to benefit from Occupational Thera py to maximize her damage inside adjuster strength and wrist stability following this injury and return her to prior level of function. 10/30/2018 - REASON FOR RE-CERTIFICATION: Andrea has received 12 Occupational Therapy treatme nts since 08/07/2018 following her right wrist surgery. She has regained full AROM of the rig ht wrist but continues to have right wrist, damage inside adjuster and pinch weakness and significant pain (3- [...] in 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, and damage inside adjuster and pinch weakness in the right hand [...] Goal 2: The pt will have right damage inside adjuster strength of 50 lbs by discharge Goal 2 Status: PARTIALLY MET at PN 12/21/2018 -right damage inside adjuster strength has stayed stable at 24 l bs this month Goal 4: The pt will be independent and compliant with HEP Goal 4 Status: ONGOING - pt reports daily compliance with HEP which includes wrist, damage inside adjuster an d pinch strengthening as well as general UE strengthening Plan Date of Onset: 07/20/2018 Start of Care Date: 08/07/2018 Requested # of Visits: 24 visits 2x/week for 12 weeks Certification From: 10/30/2018 Certification To: 01/22/2019 Treatment Plan/Interventions OT [id number] - Therapeutic [id number] - Therapeutic [id number] - Self Care/Ho me Kfibkebttb54773 - Manual Ixmrdny60584 - Orthotic/Prosthetic Pkatzvrc43619 - Mewgjavqtc995 34 - Contrast Dyek14980 - Paraffin BathSplinting Moist heat, cold therapy Patient and/or family has indicated understanding of treatment needs and actively participa everardo in the creation of this plan for care. Electronically signed by: Nakia Koo OT, 12/21/2018 9:31 Patient Name: Andrea King Angeli/: 1990/ signed by Nakia Koo OT at [...] | | | | | [place] [address] | | | | | | [phone] | | | | | | | | +--------+ + + + + | 10/30/ | Office | Primary Care | Erika Ernst, | | | 2019 | Visit | | DO [address] | | | | | | [place] [address] | | | | | | [phone] | | | | | | | [...] [place] | | | | | | [address] | | | | | | [phone] | | | | | | | | +--------+ + + + + | 02/09/ | Office | Neurology | Dhara, | | | 2019 | Visit | | [address] | | | [address] [place], | | | | | | [place] [address] | | | | | | [phone] | | | | | | | | +--------+ + + + + documented as of this encounter Visit Diagnoses + + | Diagnosis | + + | Radial styloid tenosynovitis - Primary | + + | Right wrist pain Pain in joint, forearm | + + documented in this encounter"
--- OUTSIDE RECORDS SUMMARY | ~2019-09-30 | XMS | Encounter Summary ---
Demographics + + + | Address | [address] | | | [place] [address] | + + + | Home Phone [...] Providers + +------+ + | Care It Intern Name | Role | Phone | [...] Question | | 2019 | | [facility] | DO [address] | | | | | MEDICAL CLIN[facility] [address] | [place] [address] | | | | | [address] [place], | [phone] | | | | | [place] [address] | | | | | | [phone] | | | +--------+ + + + [...] [address] | | | | | | [phone] | | | | | | | | +--------+ + + + + | 10/30/ | Office | Primary Care | Erika Ernst, | | | 2019 | Visit | | DO [address] | | | | | | [place] [address] | | | | | | [phone] | | | | | | | [...] [place] | | | | | | [address] | | | | | | [phone] | | | | | | | | +--------+ + + + + | 02/09/ | Office | Neurology | Dhara, | | | 2020 | Visit | | [address] | | | | [address] [place], | | | | | | [place] [address] | | | | | | [phone] | | | | | | | | +--------+ + + + + documented as of this encounter Visit Diagnoses Not on filedocumented in this encounter"
--- OUTSIDE RECORDS SUMMARY | ~2019-09-30 | XMS | Encounter Summary ---
Demographics + + + | Address | [address] | | | [place] [address] | + + + | Home Phone [...] Team Providers + +------+ + | Care Job Counselor Name | Role | Phone | + +------+ + PCP | Unavailable | + +------+ + Encounter Details +--------+ + + + + | Date | Type | Department | Care Team | Description | +--------+ + + + + | 10/27/ | Hospital | [facility] | Camille Bush | | | 2016 | Encounter | [facility] | [address] | | | | | [facility] [address] | [facility], | | | | | 4TH [facility], | [place] [address] | | | | | [place] [address] | [phone] | | | | | [phone] | | | +--------+ + + + [...] | | | | | [place] [address] | | | | | | [phone] | | | | | | | | +--------+ + + + + | 10/30/ | Office | Primary Care | Erika Ernst, | | | 2019 | Visit | | DO [address] | | | | | | [place] [address] | | | | | | [phone] | | | | | | | [...] [place] | | | | | | [address] | | | | | | [phone] | | | | | | | | +--------+ + + + + | 02/09/ | Office | Neurology | Dhara, | | | 2019 | Visit | | [address] | | | [address] [place], | | | | | | [place] [address] | | | | | | [phone] | | | | | | | | +--------+ + + + + documented as of this encounter Visit Diagnoses Not on filedocumented in this encounter"
--- OUTSIDE RECORDS SUMMARY | ~2019-09-30 | XMS | Encounter Summary ---
Demographics + + + | Address | [address] | | | [place] [address] | + + + | Home Phone [...] Providers + +------+ + | Care Senior Sas Developer Name | Role | Phone | [...] | MEDICAL [facility] [address] | [place] [address] | (Primary Dx); | | | | [address] [place], | [phone] | Acquired | | | | [place] [address] | | hypothyroidism; Iron | | | | [phone] | | deficiency; PTSD | | | [...] | | | | | [place] [address] | | | | | | [phone] | | | | | | | | +--------+ + + + + | 10/30/ | Office | Primary Care | Erika Ernst, | | | 2019 | Visit | | DO [address] | | | | | | [place] [address] | | | | | | [phone] | | | | | | | [...] [place] | | | | | | [address] | | | | | | [phone] | | | | | | | | +--------+ + + + + | 02/09/ | Office | Neurology | Dhara, | | | 2020 | Visit | | [address] | | | | | | 4TH [facility], | | | | | | [place] [address] | | | | | | [phone] | | | | | | | [...]
--- OUTSIDE RECORDS SUMMARY | ~2019-09-30 | XMS | Encounter Summary ---
Demographics + + + | Address | [address] | | | [place] [address] | + + + | Home Phone [...] Team Providers + +------+ + | Care Youth Counselor Name | Role | Phone | [...] | | [facility] | BRAZING FURNACE OPERATOR | | | | | MEDICAL CLIN[facility] [address] | | | | | | 4TH [facility] [place], | | | | | | [place] [address] | | | | | | [phone] | | | +--------+ + + + [...] | | | | | [place] [address] | | | | | | [phone] | | | | | | | | +--------+ + + + + | 10/30/ | Office | Primary Care | Erika Ernst, | | | 2019 | Visit | | DO [address] | | | | | | [place] [address] | | | | | | [phone] | | | | | | | [...] [place] | | | | | | [address] | | | | | | [phone] | | | | | | | | +--------+ + + + + | 02/09/ | Office | Neurology | Dhara, | | | 2019 | Visit | | [address] | | | | | [address] [place], | | | | | | [place] [address] | | | | | | [phone] | | | | | | | | +--------+ + + + + documented as of this encounter Visit Diagnoses Not on filedocumented in this encounter"
--- OUTSIDE RECORDS SUMMARY | ~2019-09-30 | XMS | Encounter Summary ---
Demographics + + + | Address | [address] | | | [place] [address] | + + + | Home Phone [...] Team Providers + +------+ + | Care Exam Proctor Name | Role | Phone | + [...] [address] | [facility] [place] [address] | | | | | [address] [place], | [phone] | | | | | [place] [address] | | | | | | [phone] | | | +--------+ + + + [...] | | | | | [place] [address] | | | | | | [phone] | | | | | | | | +--------+ + + + + | 10/30/ | Office | Primary Care | Erika Ernst, | | | 2019 | Visit | | DO [address] | | | | | | [place] [address] | | | | | | [phone] | | | | | | | [...] [place] | | | | | | [address] | | | | | | [phone] | | | | | | | | +--------+ + + + + | 02/09/ | Office | Neurology | Dhara, | | | 2020 | Visit | | [address] | | | | | | [address]TH [place], | | | | | | [place] [address] | | | | | | [phone] | | | | | | | | +--------+ + + + + documented as of this encounter Visit Diagnoses Not on filedocumented in this encounter"
--- OUTSIDE RECORDS SUMMARY | ~2019-09-30 | XMS | Encounter Summary ---
Demographics + + + | Address | [address] | | | [place] [address] | + + + | Home Phone [...] Team Providers + +------+ + | Care Brazing Machine Operator Name | Role | Phone | + +------+ + PCP | Unavailable | + +------+ + Encounter Details +--------+ + + + + | Date | Type | Department | Care Team | Description | +--------+ + + + + | 12/30/ | [facility] | Cody Go | | | 2017 | Encounter | [facility] | [address] [place] | | | | | W[facility] [address] | [facility], [place] | | | | | [facility], | [address] | | | | | [place] [address] | [phone] | | | | | [phone] | | | +--------+ + + + [...] | | | | | [place] [address] | | | | | | [phone] | | | | | | | | +--------+ + + + + | 10/30/ | Office | Primary Care | Erika Ernst, | | | 2019 | Visit | | DO [address] | | | | | | [place] [address] | | | | | | [phone] | | | | | | | [...] [place] | | | | | | [address] | | | | | | [phone] | | | | | | | | +--------+ + + + + | 02/09/ | Office | Neurology | Dhara, | | | 2019 | Visit | | [address] | | | | | [address] [place], | | | | | | [place] [address] | | | | | | [phone] | | | | | | | | +--------+ + + + + documented as of this encounter Visit Diagnoses Not on filedocumented in this encounter"
--- OUTSIDE RECORDS SUMMARY | ~2019-09-30 | XMS | Encounter Summary ---
Demographics + + + | Address | [address] | | | [place] [address] | + + + | Home Phone [...] Providers + +------+ + | Care Fisheries Manager Name | Role | Phone | + +------+ + PCP | Unavailable | + +------+ + Encounter Details +--------+ + + + + | Date | Type | Department | Care Team | Description | +--------+ + + + + | 09/16/ | [facility] | [place] [facility] | Erika Ernst, | | | 2016 | Encounter | [facility] | DO [address] | | | | | MEDICAL CLIN[facility] [address] | [facility] [place] [address] | | | | | [address] [place], | [phone] | | | | | [place] [address] | | | | | | [phone] | | | +--------+ + + + [...] | | | | | [place] [address] | | | | | | [phone] | | | | | | | | +--------+ + + + + | 10/30/ | Office | Primary Care | Erika Ernst, | | | 2019 | Visit | | DO [address] | | | | | | [place] [address] | | | | | | [phone] | | | | | | | [...] [place] | | | | | | [address] | | | | | | [phone] | | | | | | | | +--------+ + + + + | 02/09/ | Office | Neurology | Dhara, | | | 2019 | Visit | | [address] | | | | | | [address] [place], | | | | | | [place] [address] | | | | | | [phone] | | | | | | | | +--------+ + + + + documented as of this encounter Visit Diagnoses Not on filedocumented in this encounter"
--- OUTSIDE RECORDS SUMMARY | ~2019-09-30 | XMS | Encounter Summary ---
Demographics + + + | Address | [address] | | | [place] [address] | + + + | Home Phone [...] Team Providers + +------+ + | Care Cinder Crusher Operator Name | Role | Phone | [...] Results | | 2017 | | [facility] | CASH ON DELIVERY CLERK | | | | | MEDICAL CLINIC [address] | | | | | | [address] [facility] [place], | | | | | | [place] [address] | | | | | | [phone] | | | +--------+ + + + [...] | | | | | [place] [address] | | | | | | [phone] | | | | | | | | +--------+ + + + + | 10/30/ | Office | Primary Care | Erika Ernst, | | | 2019 | Visit | | DO [address] | | | | | | [place] [address] | | | | | | [phone] | | | | | | | [...] [place] | | | | | | [address] | | | | | | [phone] | | | | | | | | +--------+ + + + + | 02/09/ | Office | Neurology | Dhara, | | | 2019 | Visit | | [address] | | | | | | [address] [place], | | | | | | [place] [address] | | | | | | [phone] | | | | | | | | +--------+ + + + + documented as of this encounter Visit Diagnoses Not on filedocumented in this encounter"
--- OUTSIDE RECORDS SUMMARY | ~2019-09-30 | XMS | Encounter Summary ---
Demographics + + + | Address | [address] | | | [place] [address] | + + + | Home Phone [...] Team Providers + +------+ + | Care Relationship Manager Name | Role | Phone | [...] Sinusitis | | 2019 | | [facility] | DO [address] | | | | | MEDICAL CLINIC [address] | [place] [address] | | | | | [address] [place], | [phone] | | | | | [place] [address] | | | | | | [phone] | | | +--------+ + + + [...] | | | | | [place] [address] | | | | | | [phone] | | | | | | | | +--------+ + + + + | 10/30/ | Office | Primary Care | Erika Ernst, | | | 2019 | Visit | | DO [address] [facility] | | | | | | [place] [address] | | | | | | [phone] | | | | | | | [...] [place] | | | | | | [address] | | | | | | [phone] | | | | | | | | +--------+ + + + + | 02/09/ | Office | Neurology | Dhara, | | | 2019 | Visit | | [address] | | | | | | [address]TH [place], | | | | | | [place] [address] | | | | | | [phone] | | | | | | | | +--------+ + + + + documented as of this encounter Visit Diagnoses Not on filedocumented in this encounter"
--- OUTSIDE RECORDS SUMMARY | ~2019-09-30 | XMS | Encounter Summary ---
Demographics + + + | Address | [address] | | | [place] [address] | + + + | Home Phone [...] Providers + +------+ + | Care Certified Nursing Attendant Name | Role | Phone | [...] | | | of left | [place] [address] | [place] [address] | | | | | ankle, | Phone: | Phone: | | | | | initial | [phone] | [phone] | | | | | encounter | Fax: | Fax: | | | | | Procedures | [phone] | [phone] | | | | | PT EVAL [...] [address] [place] | [place] [address] | encounter (Primary | | | | [place], [place] | [phone] | Dx) | | | | [address] | | | | | | [phone] | Nick Barrios I, PT | | [...] 4/10 today 08/10/18 Treatment Plan/Interventions PT EvaluationPT Re-Xiqcjpnvbi61496 - Therapeutic Ncmkwzai78056 - Neuromuscular Reeducation9 7116 - Gait Yyqussap92807 - Therapeutic Opqjcqgauu15263 - Manual Zndqqsw05468 - Self Care/Ho me Mrqixhrvgc32533 - Group Therapeutic Vhvovlptqb05010 - Aquatic Therapy/Djyzjexjv21396 - Io mowoevvlfiw24308 - TENS Application/Mybcnnrriyv13411 - Electrical Stimulation, Abnozwwqdi197 35 - Ultrasound Electronically signed by: Nick Barrios PT, 08/10/2018 17:12 Patient Name: Andrea Suh/: 1990/ osephNick I PT - 08/10/2018 5:10 PM PST [facility] PT [address] [place] [address] Physical Therapy Daily Treatment Note Date: 08/10/2018 [...] and B genuvalgum during ambulation Level of [place]: independent Gait Deviations: stride width increased, other [...] in favor of SL heel raise with ENTREPRENEURIAL FINANCE PROFESSOR. ONGOING: SLS on even surface 3x30 seconds [...] Rhomberg stance on airex eye s closed ENTREPRENEURIAL FINANCE PROFESSOR as needed 2x1 minute // Lateral gait [...] | | | | | [place] [address] | | | | | | [phone] | | | | | | | | +--------+ + + + + | 10/30/ | Office | Primary Care | Erika Ernst, | | | 2019 | Visit | | DO [address] | | | | | | [place] [address] | | | | | | [phone] | | | | | | | [...] [place] | | | | | | [address] | | | | | | [phone] | | | | | | | | +--------+ + + + + | 02/09/ | Office | Neurology | Dhara, | | | 2020 | Visit | | [address] | | | | | | [address] [place], | | | | | | [place] [address] | | | | | | [phone] | | | | | | | | +--------+ + + + + documented as of this encounter Visit Diagnoses + + | Diagnosis | + + | Sprain of left ankle, subsequent encounter - Primary | + + documented in this encounter
--- OUTSIDE RECORDS SUMMARY | ~2019-09-30 | XMS | Encounter Summary ---
Demographics + + + | Address | [address] | | | [place] [address] | + + + | Home Phone [...] Team Providers + +------+ + | Care Reimbursement Counselor Name | Role | Phone | [...] 2018 | Support | [facility] | [facility] [address] [facility] [facility] | | | | | MEDICAL CLINIC [address] | [facility] [place] [address] | | | | | [address] [place], | [phone] | | | | | [place] [address] | | | | | | [phone] | | | +--------+ + + + [...] | | | | | [place] [address] | | | | | | [phone] | | | | | | | | +--------+ + + + + | 10/30/ | Office | Primary Care | Erika Ernst, | | | 2019 | Visit | | DO [address] | | | | | | [place] [address] | | | | | | [phone] | | | | | | | [...] [place] | | | | | | [address] | | | | | | [phone] | | | | | | | | +--------+ + + + + | 02/09/ | Office | Neurology | Dhara, | | | 2019 | Visit | | [address] | | | | | | [address] [place], | | | | | | [place] [address] | | | | | | [phone] | | | | | | | | +--------+ + + + + documented as of this encounter Visit Diagnoses Not on filedocumented in this encounter"
--- OUTSIDE RECORDS SUMMARY | ~2019-09-30 | XMS | Encounter Summary ---
Demographics + + + | Address | [address] | | | [place] [address] | + + + | Home Phone [...] Team Providers + +------+ + | Care Cupola Liner Helper Name | Role | Phone | + +------+ + PCP | Unavailable | + +------+ + Encounter Details +--------+ + + + + | Date | Type | Department | Care Team | Description | +--------+ + + + + | 05/07/ | [facility] | Spenser Roberts NP | | | 2015 | Encounter | [facility] | [address], | | | | | MEDICAL CLINIC [address] | [place] [address] | | | | | 4TH [facility], | [phone] | | | | | [place] [address] | | | | | | [phone] | | | +--------+ + + + [...] | | | | | [place] [address] | | | | | | [phone] | | | | | | | | +--------+ + + + + | 10/30/ | Office | Primary Care | Erika Ernst, | | | 2019 | Visit | | DO [address] | | | | | | [place] [address] | | | | | | [phone] | | | | | | | [...] [place] | | | | | | [address] | | | | | | [phone] | | | | | | | | +--------+ + + + + | 02/09/ | Office | Neurology | Dhara, | | | 2020 | Visit | | [address] | | | | | | [address] [place], | | | | | | [place] [address] | | | | | | [phone] | | | | | | | | +--------+ + + + + documented as of this encounter Visit Diagnoses Not on filedocumented in this encounter"
--- OUTSIDE RECORDS SUMMARY | ~2019-09-30 | XMS | Encounter Summary ---
Demographics + + + | Address | [address] | | | [place] [address] | + + + | Home Phone [...] Team Providers + +------+ + | Care Housemaid Name | Role | Phone | + [...] | [place] | [place] [address] | | | | | [address] | [phone] | | | | | [phone] | | | +--------+ + + + [...] | | | | | [place] [address] | | | | | | [phone] | | | | | | | | +--------+ + + + + | 10/30/ | Office | Primary Care | Erika Ernst, | | | 2019 | Visit | | DO [address] | | | | | | [place] [address] | | | | | | [phone] | | | | | | | [...] [place] | | | | | | [address] | | | | | | [phone] | | | | | | | | +--------+ + + + + | 02/09/ | Office | Neurology | Dhara, | | | 2020 | Visit | | [address] | | | | | | [address] [place], | | | | | | [place] [address] | | | | | | [phone] | | | | | | | | +--------+ + + + + documented as of this encounter Visit Diagnoses Not on filedocumented in this encounter"
--- OUTSIDE RECORDS SUMMARY | ~2019-09-30 | XMS | Encounter Summary ---
Demographics + + + | Address | [address] | | | [place] [address] | + + + | Home Phone [...] Team Providers + +------+ + | Care Judge'S Clerk Name | Role | Phone | [...] | [facility] | [address] | Authorization | | | | MEDICAL CLINIC [address] | [facility] [place] [address] | | | | | [address] [facility], | [phone] | | | | | [place] [address] | | | | | | [phone] | | | +--------+ + + + [...] | | | | | [place] [address] | | | | | | [phone] | | | | | | | | +--------+ + + + + | 10/30/ | Office | Primary Care | Erika Ernst, | | | 2019 | Visit | | DO [address] | | | | | | [place] [address] | | | | | | [phone] | | | | | | | [...] [place] | | | | | | [address] | | | | | | [phone] | | | | | | | | +--------+ + + + + | 02/09/ | Office | Neurology | Dhara, | | | 2019 | Visit | | Karyanne, SENIOR LABEL SPECIALIST [address] | | | | | | [address] [place], | | | | | | [place] [address] | | | | | | [phone] | | | | | | | | +--------+ + + + + documented as of this encounter Visit Diagnoses Not on filedocumented in this encounter"
--- OUTSIDE RECORDS SUMMARY | ~2019-09-30 | XMS | Encounter Summary ---
Demographics + + + | Address | [address] | | | [place] [address] | + + + | Home Phone [...] Providers + +------+ + | Care Supervisor Paint Name | Role | Phone | + [...] | | | of left | [place] [address] | [place] [address] | | | | | ankle, | Phone: | Phone: | | | | | initial | [phone] | [phone] | | | | | encounter | Fax: | Fax: | | | | | Procedures | [phone] | [phone] | | | | | PT TREAT [...] [address] [place] | [place] [address] | encounter (Primary | | | | [place], [place] | [phone] | Dx); Fall on same | | | | [address] | | level from slipping, | | | | [phone] | Julia Castillo | subsequent | | [...] be differen t from the original. [facility] PT [address] [place] [address] Physical Therapy Daily Treatment Note Date: 09/18/2018 [...] | | | | | [place] [address] | | | | | | [phone] | | | | | | | | +--------+ + + + + | 10/30/ | Office | Primary Care | Erika Ernst, | | | 2019 | Visit | | DO [address] [place] | | | | | | [place] [address] | | | | | | [phone] | | | | | | | | +--------+ + + + + | 11/07/ | Appointment | Nutrition | Janel Webster | | | 2019 | | | [place] | | +--------+ + + + + | 11/28/ | Office | Otolaryngology | Anthony Avlarado MD | | 2019 | Visit | | [address] | | | | | | [place] | | | | | | [address] | | | | | | [phone] | | | | | | | | +--------+ + + + + | 02/09/ | Office | Neurology | Dhara, | | | 2019 | Visit | | [address] | | | | | | 4TH [facility] [place], | | | | | | [place] [address] | | | | | | [phone] | | | | | | | | +--------+ + + + + documented as of this encounter Visit Diagnoses + + | Diagnosis | + + | Sprain of left ankle, subsequent encounter - Primary | + + | Fall on same level from slipping, subsequent encounter | + + documented in this encounter"
--- OUTSIDE RECORDS SUMMARY | ~2019-09-30 | XMS | Encounter Summary ---
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 as it was the same [...] | | | | | [place] [address] | | | | | | [phone] | | | | | | | | +--------+ + + + + | 10/30/ | Office | Primary Care | Erika Ernst, | | | 2019 | Visit | | DO [address] [place] | | | | | | [place] [address] | | | | | | [phone] | | | | | | | [...] [place] | | | | | | [address] | | | | | | [phone] | | | | | | | | +--------+ + + + + | 02/09/ | Office | Neurology | Dhara, | | | 2019 | Visit | | [address] | | | | | | [address] [place], | | | | | | [place] [address] | | | | | | [phone] | | | | | | | | +--------+ + + + + documented as of this encounter Visit Diagnoses Not on filedocumented in this encounter"
--- OUTSIDE RECORDS SUMMARY | ~2019-09-30 | XMS | Encounter Summary ---
Demographics + + + | Address | [address] | | | [place] [address] | + + + | Home Phone [...] Team Providers + +------+ + | Care Barrel Loader And Cleaner Name | Role | Phone | [...] [address] | [place] [address] | | | | | [place], [place] | [phone] | | | | | [address] | | | | | | [phone] | | | +--------+ + + + [...] | | | | | [place] [address] | | | | | | [phone] | | | | | | | | +--------+ + + + + | 10/30/ | Office | Primary Care | Erika Ernst, | | | 2019 | Visit | | DO [address] | | | | | | [place] [address] | | | | | | [phone] | | | | | | | [...] [place] | | | | | | [address] | | | | | | [phone] | | | | | | | | +--------+ + + + + | 02/09/ | Office | Neurology | Dhara, | | | 2019 | Visit | | [address] | | | | | | [address] [place], | | | | | | [place] [address] | | | | | | [phone] | | | | | | | [...]
--- OUTSIDE RECORDS SUMMARY | ~2019-09-30 | XMS | Encounter Summary ---
Demographics + + + | Address | [address] | | | [place] [address] | + + + | Home Phone [...] Providers + +------+ + | Care Research & Analytics Manager Name | Role | Phone | + +------+ + PCP | Unavailable | + +------+ + Encounter Details +--------+ + + + + | Date | Type | Department | Care Team | Description | +--------+ + + + + | 03/07/ | [facility] | Heike Rodriguez, | | | 2016 | Encounter | [facility] | ESTHETIC DERMATOLOGIST [address] | | | | | C[address] | [place] | | | | | [place] | [address] | | | | | [address] | | | | | | [phone] | | | +--------+ + + + [...] | | | | | [place] [address] | | | | | | [phone] | | | | | | | | +--------+ + + + + | 10/30/ | Office | Primary Care | Erika Ernst, | | | 2019 | Visit | | DO [address] [place] | | | | | | [place] [address] | | | | | | [phone] | | | | | | | [...] [place] | | | | | | [address] | | | | | | [phone] | | | | | | | | +--------+ + + + + | 02/09/ | Office | Neurology | Dhara, | | | 2019 | Visit | | [address] | | | | | | [address] [place], | | | | | | [place] [address] | | | | | | [phone] | | | | | | | [...] | | and/or osteomyelitis, MRI recommended. Job#: [id number] Read By: ANJELICA | | Oliver CHAMBERS [...]
--- OUTSIDE RECORDS SUMMARY | ~2019-09-30 | XMS | Encounter Summary ---
Demographics + + + | Address | [address] | | | [place] [address] | + + + | Home Phone [...] Providers + +------+ + | Care Wood And Hardware Outfitter Name | Role | Phone | + [...] | | | l allergies | [place] [address] | [place], [place] | | | | | | Phone: | [address] Phone: | | | | | | [phone] | [phone] | | | | | | Fax: | Fax: | | | | | | [phone] | [phone] | +--------+ + + + + + [...] | MEDICAL CLINIC [address] | [place] [address] | (Primary Dx); | | | | [address] [place], | [phone] | Anxiety; Depression, | | | | [place] [address] | | unspecified | | | | [phone] | | depression type; | | | [...] anxiety as well. She did see the allergiest/travel manager and had allergy testing and symbicort was [...] | | | | | [place] [address] | | | | | | [phone] | | | | | | | | +--------+ + + + + | 10/30/ | Office | Primary Care | Erika Ernst, | | | 2019 | Visit | | DO [address] [place] | | | | | | [place] [address] | | | | | | [phone] | | | | | | | [...] [place] | | | | | | [address] | | | | | | [phone] | | | | | | | | +--------+ + + + + | 02/09/ | Office | Neurology | Dhara, | | | 2019 | Visit | | [address] | | | | | | [address] [place], | | | | | | [place] [address] | | | | | | [phone] | | | | | | | [...]
--- OUTSIDE RECORDS SUMMARY | ~2019-09-30 | XMS | Encounter Summary ---
Demographics + + + | Address | [address] | | | [place] [address] | + + + | Home Phone [...] Providers + +------+ + | Care Manager Sterile Name | Role | Phone | + [...] Asthma | | 2019 | | [facility] | DO [address] | | | | | MEDICAL CLINIC [address] | [place] [address] | | | | | [address] [place], | [phone] | | | | | [place] [address] | | | | | | [phone] | | | +--------+ + + + [...] | | | | | [place] [address] | | | | | | [phone] | | | | | | | | +--------+ + + + + | 10/30/ | Office | Primary Care | Erika Ernst, | | | 2019 | Visit | | DO [address] | | | | | | [place] [address] | | | | | | [phone] | | | | | | | [...] [place] | | | | | | [address] | | | | | | [phone] | | | | | | | | +--------+ + + + + | 02/09/ | Office | Neurology | Dhara, | | | 2020 | Visit | | [address] | | | | | | [address] [place], | | | | | | [place] [address] | | | | | | [phone] | | | | | | | | +--------+ + + + + documented as of this encounter Visit Diagnoses Not on filedocumented in this encounter"
--- OUTSIDE RECORDS SUMMARY | ~2019-09-30 | XMS | Encounter Summary ---
Demographics + + + | Address | [address] | | | [place] [address] | + + + | Home Phone [...] Providers + +------+ + | Care Director Product Name | Role | Phone | + [...] | | | | | | [place] [address] | [address] [place] | | | | | | Phone: | [place], [place] | | | | | | [phone] | [address] Phone: | | | | | | Fax: | [phone] | | | | | | [phone] | Fax: | | | | | | | [phone] | + + + + + + [...] | MEDICAL CLINIC [address] | [place] [address] | (Primary Dx); PTSD | | | | [address] [place], | [phone] | (post-traumatic | | | | [place] [address] | | stress disorder); | | | | [phone] | | Encounter for | | | [...] | | | | | [place] [address] | | | | | | [phone] | | | | | | | | +--------+ + + + + | 10/30/ | Office | Primary Care | Erika Ernst, | | | 2019 | Visit | | DO [address] [place] | | | | | | [place] [address] | | | | | | [phone] | | | | | | | [...] [place] | | | | | | [address] | | | | | | [phone] | | | | | | | | +--------+ + + + + | 02/09/ | Office | Neurology | Dhara, | | | 2019 | Visit | | [address] | | | | | [address] [place], | | | | | | [place] [address] | | | | | | [phone] | | | | | | | [...] + + | [facility] | [address] | [place] [address] | [phone] | | HOSPITAL [facility] | | | [...]
--- OUTSIDE RECORDS SUMMARY | ~2019-09-30 | XMS | Encounter Summary ---
Demographics + + + | Address | [address] | | | [place] [address] | + + + | Home Phone [...] Providers + +------+ + | Care Card Maker Name | Role | Phone | [...] | [place] | [place] [address] | | | | | [address] | [phone] | | | | | [phone] | | | +--------+ + + + [...] | | | | | [place] [address] | | | | | | [phone] | | | | | | | | +--------+ + + + + | 10/30/ | Office | Primary Care | Erika Ernst, | | | 2019 | Visit | | DO [address] [place] | | | | | | [place] [address] | | | | | | [phone] | | | | | | | [...] [place] | | | | | | [address] | | | | | | [phone] | | | | | | | | +--------+ + + + + | 02/09/ | Office | Neurology | Dhara, | | | 2019 | Visit | | [address] | | | | | [address] [place], | | | | | | [place] [address] | | | | | | [phone] | | | | | | | | +--------+ + + + + documented as of this encounter Visit Diagnoses Not on filedocumented in this encounter"
--- OUTSIDE RECORDS SUMMARY | ~2019-09-30 | XMS | Encounter Summary ---
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 Once a week Cholecalciferol (VITAMIN D3) 06206 units TABS Take 1 tablet by mouth [...] Location: [facility] TENDON RELEASE TONSILLECTOMY WISDOM TOOTH EXTRACTION Family History Problem Relation Age of Onset Other (see comment) Mother gallbladder disease Hypertension Father Other (see comment) Father arrhymthmia Breast cancer Sister Cervical cancer Maternal Grandmother Heart attack Maternal Aunt MA Social History Social History Marital status: Single [...] and their vital signs recorded by my law office assistant today, a s found in this chart note. Electronically signed by: Emily Mittal DPM 12/06/2018 at 10:37 Note: Part of this report was transcribed using voice recognition software. Every effort wa s made to ensure accuracy. However, inadvertent computerized clinical aide errors may be pre sent. CC: Erika [...] | | | | | [place] [address] | | | | | | [phone] | | | | | | | | +--------+ + + + + | 10/30/ | Office | Primary Care | Erika Ernst, | | | 2019 | Visit | | DO [address] | | | | | | [place] [address] | | | | | | [phone] | | | | | | | [...] [place] | | | | | | [address] | | | | | | [phone] | | | | | | | | +--------+ + + + + | 02/09/ | Office | Neurology | Dhara, | | | 2019 | Visit | | DWAINE Ross [address] [place], | | | | | | [place] [address] | | | | | | [phone] | | | | | | | [...]
--- OUTSIDE RECORDS SUMMARY | ~2019-09-30 | XMS | Encounter Summary ---
Demographics + + + | Address | [address] | | | [place] [address] | + + + | Home Phone [...] Providers + +------+ + | Care Room Service Food Service Attendant Name | Role | Phone | [...] | Other | | 2018 | | [facility] | BAKARI Chapin | | | | | [address] | | | | | | [place] | | | | | | [address] | | | | | | [phone] | | | +--------+ + + + [...] | | | | | [place] [address] | | | | | | [phone] | | | | | | | | +--------+ + + + + | 10/30/ | Office | Primary Care | Erika Ernst, | | | 2019 | Visit | | DO [address] | | | | | | [place] [address] | | | | | | [phone] | | | | | | | [...] [place] | | | | | | [address] | | | | | | [phone] | | | | | | | | +--------+ + + + + | 02/09/ | Office | Neurology | Dhara, | | | 2019 | Visit | | DWAINE Ross [address] [place], | | | | | | [place] [address] | | | | | | [phone] | | | | | | | | +--------+ + + + + documented as of this encounter Visit Diagnoses Not on filedocumented in this encounter"
--- OUTSIDE RECORDS SUMMARY | ~2019-09-30 | XMS | Encounter Summary ---
Demographics + + + | Address | [address] | | | [place] [address] | + + + | Home Phone [...] Team Providers + +------+ + | Care Stone Lathe Operator Name | Role | Phone | [...] [place] | | | | | | [address] | | | | | | [phone] | | | +--------+ + + + [...] [address] | | | | | | [phone] | | | | | | | | +--------+ + + + + | 10/30/ | Office | Primary Care | Erika Ernst, | | | 2019 | Visit | | DO [address] | | | | | | [place] [address] | | | | | | [phone] | | | | | | | [...] [place] | | | | | | [address] | | | | | | [phone] | | | | | | | | +--------+ + + + + | 02/09/ | Office | Neurology | Dhara, | | | 2019 | Visit | | [address] | | | | | | [address] [place], | | | | | | [place] [address] | | | | | | [phone] | | | | | | | | +--------+ + + + + documented as of this encounter Visit Diagnoses Not on filedocumented in this encounter"
--- OUTSIDE RECORDS SUMMARY | ~2019-09-30 | XMS | Encounter Summary ---
Demographics + + + | Address | [address] | | | [place] [address] | + + + | Home Phone [...] Providers + +------+ + | Care Digital Marketing Lead Name | Role | Phone | [...] [address] | | | | | [place] [address] | | | | | | [phone] | | | +--------+ + + + [...] | | | | | [place] [address] | | | | | | [phone] | | | | | | | | +--------+ + + + + | 10/30/ | Office | Primary Care | Erika Ernst, | | | 2019 | Visit | | DO [address] | | | | | | [place] [address] | | | | | | [phone] | | | | | | | [...] [place] | | | | | | [address] | | | | | | [phone] | | | | | | | | +--------+ + + + + | 02/09/ | Office | Neurology | Dhara, | | | 2019 | Visit | | [address] | | | | | | [address] [place], | | | | | | [place] [address] | | | | | | [phone] | | | | | | | | +--------+ + + + + documented as of this encounter Visit Diagnoses + + | Diagnosis | + + | Vertigo - Primary Dizziness and giddiness | + + documented in this encounter"
--- OUTSIDE RECORDS SUMMARY | ~2019-09-30 | XMS | Clinical Summary ---
Demographics + + + | Address | [address] | | | [place] [address] | + + + | Home Phone | | + + + | Preferred Language | Unknown | + + + | Marital Status | Single | + + + | Yazdanism Affiliation | Unknown | + + + | Race | Unknown | + + + | Ethnic Group | Unknown | + + + Author + + + | Author | [employer] [facility] (Historical as of | | | 05-18-19) | + + + | Organization | [facility] (Historical as of | | | 05-18-19) [...] Overview: Added automatically from request for surgery [id number] | + + + + + | Complete tear of wrist ligament | 05/31/2018 | + + + + + | Overview: Added automatically from request for surgery [id number] | + + Immunizations + + + [...] | | 05/16/2018, 05/16/2017, | | | (#1) | 9 | 06/09/2015, Additional history | | | [...] - [place] [facility] | L&I - | [id number] | | | | | | [place] | | | | | | | [facility] | | | | | + +--------+ +------+-------+---------+ | [employer] | ODS | [id number] | | | | | | HEALTH [...] | | | jayna | | | [address]: | [address] | | | | | | | | | | | | | +- | | | | | | | [address] | | + +--------+ +--------+ + + | ANDREA SUH | Worker | Self | [birth year]/ | Work: | [address] | | | s Comp | | 1989 | +- | [place] | | | | | | [address]: | [address] | | | | | | | | | | | | | +- | | | | | | | [address] | | + +--------+ +--------+ + +
--- OUTSIDE RECORDS SUMMARY | ~2019-09-30 | XMS | Encounter Summary ---
Demographics + + + | Address | [address] | | | [place] [address] | + + + | Home Phone [...] Providers + +------+ + | Care Stock Controller Name | Role | Phone | [...] | [facility] | [place] [address] | | | | | [address] [place], | [phone] | | | | | [place] [address] | | | | | | [phone] | | | +--------+ + + + [...] | | | | | [place] [address] | | | | | | [phone] | | | | | | | | +--------+ + + + + | 10/30/ | Office | Primary Care | Erika Ernst, | | | 2019 | Visit | | DO [address] | | | | | | [place] [address] | | | | | | [phone] | | | | | | | [...] [place] | | | | | | [address] | | | | | | [phone] | | | | | | | | +--------+ + + + + | 02/09/ | Office | Neurology | Dhara, | | | 2020 | Visit | | [address] | | | | | | [address] [place], | | | | | | [place] [address] | | | | | | [phone] | | | | | | | | +--------+ + + + + documented as of this encounter Visit Diagnoses Not on filedocumented in this encounter"
--- OUTSIDE RECORDS SUMMARY | ~2019-09-30 | XMS | Encounter Summary ---
Demographics + + + | Address | [address] | | | [place] [address] | + + + | Home Phone [...] Providers + +------+ + | Care Ordnance Technician Name | Role | Phone [...] | [facility] | [place] [address] | | | | | [address] [place], | [phone] | | | | | [place] [address] | | | | | | [phone] | | | +--------+ + + + [...] | | | | | [place] [address] | | | | | | [phone] | | | | | | | | +--------+ + + + + | 10/30/ | Office | Primary Care | Erika Ernst, | | | 2019 | Visit | | DO [address] | | | | | | [place] [address] | | | | | | [phone] | | | | | | | [...] [place] | | | | | | [address] | | | | | | [phone] | | | | | | | | +--------+ + + + + | 02/09/ | Office | Neurology | Dhara, | | | 2019 | Visit | | [address] | | | | | | [address] [place], | | | | | | [place] [address] | | | | | | [phone] | | | | | | | | +--------+ + + + + documented as of this encounter Visit Diagnoses Not on filedocumented in this encounter"
--- OUTSIDE RECORDS SUMMARY | ~2019-09-30 | XMS | Encounter Summary ---
Demographics + + + | Address | [address] | | | [place] [address] | + + + | Home Phone [...] Providers + +------+ + | Care Director Sales Support Name | Role | Phone | + [...] | [facility] | [place] [address] | | | | | [address] [place], | [phone] | | | | | [place] [address] | | | | | | [phone] | | | +--------+ + + + [...] | | | | | [place] [address] | | | | | | [phone] | | | | | | | | +--------+ + + + + | 10/30/ | Office | Primary Care | Erika Ernst, | | | 2019 | Visit | | DO [address] [place] [address] | | | | | | [place] [address] | | | | | | [phone] | | | | | | | [...] [place] | | | | | | [address] | | | | | | [phone] | | | | | | | | +--------+ + + + + | 02/09/ | Office | Neurology | Dhara, | | | 2019 | Visit | | [address] | | | | | [address] [place], | | | | | | [place] [address] | | | | | | [phone] | | | | | | | | +--------+ + + + + documented as of this encounter Visit Diagnoses Not on filedocumented in this encounter"
--- OUTSIDE RECORDS SUMMARY | ~2019-09-30 | XMS | Encounter Summary ---
Demographics + + + | Address | [address] | | | [place] [address] | + + + | Home Phone [...] Team Providers + +------+ + | Care Cap Maker Name | Role | Phone | + +------+ + PCP | Unavailable | + +------+ + Encounter Details +--------+ + + + + | Date | Type | Department | Care Team | Description | +--------+ + + + + | 11/27/ | [facility] | Bo Bhat | | | 2017 | Encounter | [facility] | [address] | | | | | [facility] [address] | [address] [place], [place] | | | | | [address]TH [facility], | [address] | | | | | [place] [address] | | | | | | [phone] | | | +--------+ + + + [...] | | | | | [place] [address] | | | | | | [phone] | | | | | | | | +--------+ + + + + | 10/30/ | Office | Primary Care | Erika Ernst, | | | 2019 | Visit | | DO [address] | | | | | | [place] [address] | | | | | | [phone] | | | | | | | [...] [place] | | | | | | [address] | | | | | | [phone] | | | | | | | | +--------+ + + + + | 02/09/ | Office | Neurology | Dhara, | | | 2019 | Visit | | [address] | | | | | [address] [place], | | | | | | [place] [address] | | | | | | [phone] | | | | | | | | +--------+ + + + + documented as of this encounter Visit Diagnoses Not on filedocumented in this encounter"
--- OUTSIDE RECORDS SUMMARY | ~2019-09-30 | XMS | Encounter Summary ---
Demographics + + + | Address | [address] | | | [place] [address] | + + + | Home Phone [...] Team Providers + +------+ + | Care Sleeve Setter Safety Stitch Name | Role | Phone | + [...] Refill | | 2018 | | [facility] | [address] | | | | | [facility] [address] | [place] [address] | | | | | [address] [place], | [phone] | | | | | [place] [address] | | | | | | [phone] | | | +--------+ + + + [...] | | | | | [place] [address] | | | | | | [phone] | | | | | | | | +--------+ + + + + | 10/30/ | Office | Primary Care | Erika Ernst, | | | 2019 | Visit | | DO [address] | | | | | | [place] [address] | | | | | | [phone] | | | | | | | [...] [place] | | | | | | [address] | | | | | | [phone] | | | | | | | | +--------+ + + + + | 02/09/ | Office | Neurology | Dhara, | | | 2019 | Visit | | [address] | | | | | | [address] [place], | | | | | | [place] [address] | | | | | | [phone] | | | | | | | | +--------+ + + + + documented as of this encounter Visit Diagnoses Not on filedocumented in this encounter"
--- OUTSIDE RECORDS SUMMARY | ~2019-09-30 | XMS | Encounter Summary ---
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 ASSEMBLER [address] | due to other | | | | [facility] [address] | [facility] [place] [address] | specified organisms | | | | [address] [place], | [phone] | (Primary Dx) | | | | [place] [address] | | | | | | [phone] | | | +--------+---------+ + + + [...] CT | | | | | | [place] [address] | | | | | | [phone] | | | | | | | | +--------+ + + + + | 10/30/ | Office | Primary Care | Erika Ernst, | | | 2019 | Visit | | DO [address] | | | | | | [place] [address] | | | | | | [phone] | | | | | | | [...] [place] | | | | | | [address] | | | | | | [phone] | | | | | | | | +--------+ + + + + | 02/09/ | Office | Neurology | Dhara, | | | 2019 | Visit | | [address] | | | | | | [address] [place], | | | | | | [place] [address] | | | | | | [phone] | | | | | | | [...] + + | [place] [facility] | [address] | [place] [address] | [phone] | | [facility] | | | [...]
--- OUTSIDE RECORDS SUMMARY | ~2019-09-30 | XMS | Encounter Summary ---
Demographics + + + | Address | [address] | | | [place] [address] | + + + | Home Phone [...] | | | | disorder) | [place] [address] | [place] | | | | | Chronic | Phone: | 1100 | | | | | midline low | [phone] | [facility] | | | | | back pain | Fax: | 15 | | | | | without | [phone] | [place], [place] | | | | | sciatica | | [address] | | | | | Left hip | | Phone: | | | | | pain | | [phone] | | | | | | | Fax: | | | | | | | [phone] | +--------+ + + + + + [...] | [facility] [address] | [place] [address] | (Primary Dx); TMJ | | | | [address] [place], | [phone] | (temporomandibular | | | | [place] [address] | | joint disorder); | | | | [phone] | | Chronic midline low | | [...] ( she wants to do this in [place]) referral for TMJ and left hip and [...] | | | | | [place] [address] | | | | | | [phone] | | | | | | | | +--------+ + + + + | 10/30/ | Office | Primary Care | Erika Ernst, | | | 2019 | Visit | | DO [address] | | | | | | [place] [address] | | | | | | [phone] | | | | | | | [...] [place] | | | | | | [address] | | | | | | [phone] | | | | | | | | +--------+ + + + + | 02/09/ | Office | Neurology | Dhara, | | | 2019 | Visit | | [address] | | | | | | [address] [place], | | | | | | [place] [address] | | | | | | [phone] | | | | | | | [...] of the medial foot. Age appropriate bone deportation examiner al density. | | | |IMPRESSION: [...] + + | [place] [facility] | [address] | [place] [address] | [phone] | | [facility] | | | [...] | | | es | | | [facility] | | | | | | [facility] [...] | [facility] | | | | mg/dL [id number] - | | HOSPITAL | | | | 129 mg/dL Near | | REGIONAL | | | | [id number] - 159 mg/dL | | MEDICAL | | | | [id number] - 189 | | CENTER LAB | [...] + + | [place] [facility] | [address] | [place] [address] | [phone] | | [facility] | | | | | [facility] | | | | + [...] 8 | 5 - 26 mg/dL | [facility] | | | | | [...] | mL/min/1.73m2 | [facility] | | | [facility]UVIAN | RATE,ESTIMATED | | HOSPITAL | | | | mL/min/1.23r8Wvuc than | | REGIONAL | | | [...] + + + | [place] [facility] | [address] [place] [address] | [place] [address] | [phone] | | [facility] | | | | | [facility] | | | | + [...]
--- OUTSIDE RECORDS SUMMARY | ~2019-09-30 | XMS | Encounter Summary ---
Demographics + + + | Address | [address] | | | [place] [address] | + + + | Home Phone [...] Team Providers + +------+ + | Care Wearing Apparel Assembler Name | Role | Phone | [...] | | | CENTER [address] | [facility] | | | | | [address] [place] | [place] [address] | | | | | [address] | [phone] | | | | | [phone] | | | +--------+ + + + [...] | | | | | [place] [address] | | | | | | [phone] | | | | | | | | +--------+ + + + + | 10/30/ | Office | Primary Care | Erika Ernst, | | | 2019 | Visit | | DO [address] | | | | | | [place] [address] | | | | | | [phone] | | | | | | | [...] [place] | | | | | | [address] | | | | | | [phone] | | | | | | | | +--------+ + + + + | 02/09/ | Office | Neurology | Dhara, | | | 2020 | Visit | | [address] | | | | | | [address] [place], | | | | | | [place] [address] | | | | | | [phone] | | | | | | | | +--------+ + + + + documented as of this encounter Visit Diagnoses Not on filedocumented in this encounter"
--- OUTSIDE RECORDS SUMMARY | ~2019-09-30 | XMS | Encounter Summary ---
Demographics + + + | Address | [address] | | | [place] [address] | + + + | Home Phone [...] Providers + +------+ + | Care Automobile Locator Name | Role | Phone | + +------+ + PCP | Unavailable | + +------+ + Encounter Details +--------+ + + + + | Date | Type | Department | Care Team | Description | +--------+ + + + + | 12/19/ | [facility] | [facility] [facility] | Erika Ernst, | | | 2016 | Encounter | [facility] | DO [address] | | | | | [facility] [address] | [place] [address] | | | | | [address] [place], | [phone] | | | | | [place] [address] | | | | | | [phone] | | | +--------+ + + + [...] | | | | | [place] [address] | | | | | | [phone] | | | | | | | | +--------+ + + + + | 10/30/ | Office | Primary Care | Erika Ernst, | | | 2019 | Visit | | DO [address] | | | | | | [place] [address] | | | | | | [phone] | | | | | | | [...] | | | | | [place] | | | | | | [address] | | | | | | [phone] | | | | | | | | +--------+ + + + + | 02/09/ | Office | Neurology | Dhara, | | | 2019 | Visit | | [address] | | | | | | [address] [place], | | | | | | [place] [address] | | | | | | [phone] | | | | | | | | +--------+ + + + + documented as of this encounter Visit Diagnoses Not on filedocumented in this encounter"
--- OUTSIDE RECORDS SUMMARY | ~2019-09-30 | XMS | Encounter Summary ---
Demographics + + + | Address | [address] | | | [place] [address] | + + + | Home Phone [...] Team Providers + +------+ + | Care [facility] Name | Role | Phone | + +------+ + PCP | Unavailable | + +------+ + Encounter Details +--------+ + + + + | Date | Type | Department | Care Team | Description | +--------+ + + + + | 02/23/ | [facility] | [facility] | Erika Ernst, | | | 2016 | Encounter | [facility] | DO [address] | | | | | MEDICAL [facility] [address] | [facility] [place] [address] | | | | | [address] [place], | [phone] | | | | | [place] [address] | | | | | | [phone] | | | +--------+ + + + [...] | | | | | [place] [address] | | | | | | [phone] | | | | | | | | +--------+ + + + + | 10/30/ | Office | Primary Care | Erika Ernst, | | | 2019 | Visit | | DO [address] | | | | | | [place] [address] | | | | | | [phone] | | | | | | | [...] [place] | | | | | | [address] | | | | | | [phone] | | | | | | | | +--------+ + + + + | 02/09/ | Office | Neurology | Dhara, | | | 2019 | Visit | | [address] | | | | | | [address] [place], | | | | | | [place] [address] | | | | | | [phone] | | | | | | | | +--------+ + + + + documented as of this encounter Visit Diagnoses Not on filedocumented in this encounter"
--- OUTSIDE RECORDS SUMMARY | ~2019-09-30 | XMS | Encounter Summary ---
Demographics + + + | Address | [address] | | | [place] [address] | + + + | Home Phone [...] Providers + +------+ + | Care Occupational Health Nurse Name | Role | Phone | + +------+ + | Erika Ernst DO | PCP | | + +------+ + Encounter Details +--------+ + + + + | Date | Type | Department | Care Team | Description | +--------+ + + + + | 06/17/ | Hospital | [facility] | Conversion | Diagnosis unknown | | 2018 | Encounter | CONVERSION [address]P [address] | Transaction, | | | | | [address] | Provider Unknown | | | | | [place], [place] | [phone] | | | | | [address] | (Fax) | | | | | [phone] | | | +--------+ + + + [...] | 03/19/20 | | | (VITAMIN D3) [id number] | mouth Once a week | tablet [...] | | | | | [place] [address] | | | | | | [phone] | | | | | | | | +--------+ + + + + | 10/30/ | Office | Primary Care | Erika Ernst, | | | 2019 | Visit | | DO [address] [facility] [address] | | | | | | [place] [address] | | | | | | [phone] | | | | | | | [...] [place] | | | | | | [address] | | | | | | [phone] | | | | | | | | +--------+ + + + + | 02/09/ | Office | Neurology | Dhara, | | | 2019 | Visit | | [address] | | | | | | [address] [place], | | | | | | [place] [address] | | | | | | [phone] | | | | | | | [...]
--- OUTSIDE RECORDS SUMMARY | ~2019-09-30 | XMS | Encounter Summary ---
Demographics + + + | Address | [address] | | | [place] [address] | + + + | Home Phone [...] Team Providers + +------+ + | Care Stabilizing Machine Operator Name | Role | Phone | + +------+ + PCP | Unavailable | + +------+ + Encounter Details +--------+ + + + + | Date | Type | Department | Care Team | Description | +--------+ + + + + | 09/12/ | [facility] | Amparo Timmons | | | 2016 | Encounter | [facility] | C, [address] | | | | | CENTER [address] | [place] | | | | | [place] | [address] | | | | | [address] | | | | | | [phone] | | | +--------+ + + + [...] | | | | | [place] [address] | | | | | | [phone] | | | | | | | | +--------+ + + + + | 10/30/ | Office | Primary Care | Erika Ernst, | | | 2019 | Visit | | DO [address] | | | | | | [place] [address] | | | | | | [phone] | | | | | | | [...] [place] | | | | | | [address] | | | | | | [phone] | | | | | | | | +--------+ + + + + | 02/09/ | Office | Neurology | Dhara, | | | 2019 | Visit | | [address] | | | | | [address] [place], | | | | | | [place] [address] | | | | | | [phone] | | | | | | | | +--------+ + + + + documented as of this encounter Visit Diagnoses Not on filedocumented in this encounter"
--- OUTSIDE RECORDS SUMMARY | ~2019-09-30 | XMS | Encounter Summary ---
Demographics + + + | Address | [address] | | | [place] [address] | + + + | Home Phone [...] Team Providers + +------+ + | Care Access Services Librarian Name | Role | Phone | + +------+ + PCP | Unavailable | + +------+ + Encounter Details +--------+ + + + + | Date | Type | Department | Care Team | Description | +--------+ + + + + | 11/30/ | [facility] | Nicanor Mckeon | | | 2015 | Encounter | [facility] | MD Caryn [address] | | | | | MEDICAL CL[facility] [address] | [place], [place] | | | | | [facility] [facility], | [address] | | | | | [place] [address] | [phone] | | | | | [phone] | | | +--------+ + + + [...] | | | | | [place] [address] | | | | | | [phone] | | | | | | | | +--------+ + + + + | 10/30/ | Office | Primary Care | Erika Ernst, | | | 2019 | Visit | | DO [address] | | | | | | [place] [address] | | | | | | [phone] | | | | | | | [...] [place] | | | | | | [address] | | | | | | [phone] | | | | | | | | +--------+ + + + + | 02/09/ | Office | Neurology | Dhara, | | | 2020 | Visit | | [address] | | | | | [address] [place], | | | | | | [place] [address] | | | | | | [phone] | | | | | | | | +--------+ + + + + documented as of this encounter Visit Diagnoses Not on filedocumented in this encounter"
--- OUTSIDE RECORDS SUMMARY | ~2019-09-30 | XMS | Encounter Summary ---
Demographics + + + | Address | [address] | | | [place] [address] | + + + | Home Phone [...] Team Providers + +------+ + | Care Buggy Ladle Tender Name | Role | Phone | [...] | | | [place], [place] | [address] | | | | | [address] | | | | | | [phone] | | | +--------+ + + + [...] | | | | | [place] [address] | | | | | | [phone] | | | | | | | | +--------+ + + + + | 10/30/ | Office | Primary Care | Erika Ernst, | | | 2019 | Visit | | DO [address] [place] | | | | | | [place] [address] | | | | | | [phone] | | | | | | | [...] [place] | | | | | | [address] | | | | | | [phone] | | | | | | | | +--------+ + + + + | 02/09/ | Office | Neurology | Dhara, | | | 2019 | Visit | | [address] | | | | | | [address] [place], | | | | | | [place] [address] | | | | | | [phone] | | | | | | | | +--------+ + + + + documented as of this encounter Visit Diagnoses Not on filedocumented in this encounter"
--- OUTSIDE RECORDS SUMMARY | ~2019-09-30 | XMS | Clinical Summary ---
Demographics + + + | Address | [address] | | | [place] [address] | + + + | Home Phone | | + + + | Preferred Language | Unknown | + + + | Marital Status | Single | + + + | Yazidi Affiliation | Unknown | + + + | Race | Unknown | + + + | Ethnic Group | Unknown | + + + Author + + + | Author | [facility] (Historical as of | | | 05-18-19) | + + + | Organization | [facility] (Historical as of | | | 05-18-19) [...] Providers + +------+ + | Care Rn Surgical [facility] Name | Role | Phone | + [...] Overview: Added automatically from request for surgery [id number] | + + + + + | Complete tear of wrist ligament | 05/31/2018 | + + + + + | Overview: Added automatically from request for surgery [id number] | + + Immunizations + + + [...] - [place] [facility] | L&I - | [id number] | | | | | | [place] | | | | | | | [facility] | | | | | + +--------+ +------+-------+---------+ | [employer] | [facility] | [id number] | | | | | | HEALTH [...] | | | jayna | | | [address]: | [address] | | | | | | | | | | | | | +- | | | | | | | [address] | | + +--------+ +--------+ + + | ANDREA SUH | Worker | Self | [birth year] | Work: | [address] | | | s Comp | | 1989 | +- | [place] | | | | | | [address]: | [address] | | | | | | | | | | | | | +- | | | | | | | [address] | | + +--------+ +--------+ + +
--- OUTSIDE RECORDS SUMMARY | ~2019-09-30 | XMS | Encounter Summary ---
Demographics + + + | Address | [address] | | | [place] [address] | + + + | Home Phone [...] Team Providers + +------+ + | Care Agriculture Worker Name | Role | Phone | [...] | [place], [place] | [place] [address] | | | | | [address] | [phone] | | | | | [phone] | | | +--------+ + + + [...] | | | | | [place] [address] | | | | | | [phone] | | | | | | | | +--------+ + + + + | 10/30/ | Office | Primary Care | Erika Ernst, | | | 2019 | Visit | | DO [address] [place] | | | | | | [place] [address] | | | | | | [phone] | | | | | | | [...] [place] | | | | | | [address] | | | | | | [phone] | | | | | | | | +--------+ + + + + | 02/09/ | Office | Neurology | Dhara, | | | 2020 | Visit | | [address] [place], | | | | | | [place] [address] | | | | | | [phone] | | | | | | | | +--------+ + + + + documented as of this encounter Visit Diagnoses Not on filedocumented in this encounter"
--- OUTSIDE RECORDS SUMMARY | ~2019-09-30 | XMS | Encounter Summary ---
Demographics + + + | Address | [address] | | | [place] [address] | + + + | Home Phone [...] Providers + +------+ + | Care Chief Of Party Name | Role | Phone | + [...] | [address] | | | | | [address] | | | | | | [phone] | | | +--------+ + + + [...] | | | | | [place] [address] | | | | | | [phone] | | | | | | | | +--------+ + + + + | 10/30/ | Office | Primary Care | Erika Ernst, | | | 2019 | Visit | | DO [address] | | | | | | [place] [address] | | | | | | [phone] | | | | | | | [...] [place] | | | | | | [address] | | | | | | [phone] | | | | | | | | +--------+ + + + + | 02/09/ | Office | Neurology | Dhara, | | | 2020 | Visit | | [address] | | | | | | [address] [place], | | | | | | [place] [address] | | | | | | [phone] | | | | | | | | +--------+ + + + + documented as of this encounter Visit Diagnoses Not on filedocumented in this encounter"
--- OUTSIDE RECORDS SUMMARY | ~2019-09-30 | XMS | Encounter Summary ---
Demographics + + + | Address | [address] | | | [place] [address] | + + + | Home Phone [...] Providers + +------+ + | Care Director State Pharmacy Name | Role | Phone | + [...] | [place] | [place] [address] | | | | | [address] | [phone] | | | | | [phone] | | | +--------+ + + + [...] | | | | | [place] [address] | | | | | | [phone] | | | | | | | | +--------+ + + + + | 10/30/ | Office | Primary Care | Erika Ernst, | | | 2019 | Visit | | DO [address] | | | | | | [place] [address] | | | | | | [phone] | | | | | | | [...] [place] | | | | | | [address] | | | | | | [phone] | | | | | | | | +--------+ + + + + | 02/09/ | Office | Neurology | Dhara, | | | 2020 | Visit | | [address] | | | | | | [address] [place], | | | | | | [place] [address] | | | | | | [phone] | | | | | | | | +--------+ + + + + documented as of this encounter Visit Diagnoses Not on filedocumented in this encounter"
--- OUTSIDE RECORDS SUMMARY | ~2019-09-30 | XMS | Encounter Summary ---
Demographics + + + | Address | [address] | | | [place] [address] | + + + | Home Phone [...] Team Providers + +------+ + | Care Lubricating Machine Tender Name | Role | Phone | + +------+ + PCP | Unavailable | + +------+ + Encounter Details +--------+ + + + + | Date | Type | Department | Care Team | Description | +--------+ + + + + | 06/02/ | [facility] | [facility] | Amaya Varner NP | | | 2016 | Encounter | [facility] | [address] | | | | | [facility] [address] | [place], [place] | | | | | [address] [place], | [address] | | | | | [place] [address] | [phone] | | | | | [phone] | | | +--------+ + + + [...] | | | | | [place] [address] | | | | | | [phone] | | | | | | | | +--------+ + + + + | 10/30/ | Office | Primary Care | Erika Ernst, | | | 2019 | Visit | | DO [address] | | | | | | [place] [address] | | | | | | [phone] | | | | | | | [...] [place] | | | | | | [address] | | | | | | [phone] | | | | | | | | +--------+ + + + + | 02/09/ | Office | Neurology | Dhara, | | | 2019 | Visit | | [address] | | | | | | [address] [place], | | | | | | [place] [address] | | | | | | [phone] | | | | | | | | +--------+ + + + + documented as of this encounter Visit Diagnoses Not on filedocumented in this encounter"
--- OUTSIDE RECORDS SUMMARY | ~2019-09-30 | XMS | Encounter Summary ---
Demographics + + + | Address | [address] | | | [place] [address] | + + + | Home Phone [...] Team Providers + +------+ + | Care Calciner Operator Helper Name | Role | Phone [...] | [facility] [address] | [place] [address] | | | | [address] [place], | [phone] | | | | | [place] [address] | | | | | | [phone] | | | +--------+ + + + [...] [address] | | | | | | [phone] | | | | | | | | +--------+ + + + + | 10/30/ | Office | Primary Care | Erika Ernst, | | | 2019 | Visit | | DO [address] | | | | | | [place] [address] | | | | | | [phone] | | | | | | | [...] [place] | | | | | | [address] | | | | | | [phone] | | | | | | | | +--------+ + + + + | 02/09/ | Office | Neurology | Dhara, | | | 2020 | Visit | | [address] | | | | | | [address] [place], | | | | | | [place] [address] | | | | | | [phone] | | | | | | | | +--------+ + + + + documented as of this encounter Visit Diagnoses Not on filedocumented in this encounter"
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
--- OUTSIDE RECORDS SUMMARY | ~2019-09-30 | XMS | Encounter Summary ---
Demographics + + + | Address | [address] | | | [place] [address] | + + + | Home Phone [...] Providers + +------+ + | Care Ambulatory Service Representative Name | Role | Phone | [...] | 2019 | | [facility] | GANTRY CRANE OPERATOR [address] | Referral | | | | [facility] [address] | [place] [address] | | | | | [address] [place], | [phone] | | | | | [place] [address] | | | | | | [phone] | | | +--------+ + + + [...] [address] | | | | | | [phone] | | | | | | | | +--------+ + + + + | 10/30/ | Office | Primary Care | Erika Ernst, | | | 2019 | Visit | | DO [address] | | | | | | [place] [address] | | | | | | [phone] | | | | | | | [...] [place] | | | | | | [address] | | | | | | [phone] | | | | | | | | +--------+ + + + + | 02/09/ | Office | Neurology | Dhara, | | | 2020 | Visit | | [address] | | | | | | [address] [place], | | | | | | [place] [address] | | | | | | [phone] | | | | | | | | +--------+ + + + + documented as of this encounter Visit Diagnoses Not on filedocumented in this encounter"
--- OUTSIDE RECORDS SUMMARY | ~2019-09-30 | XMS | Encounter Summary ---
Demographics + + + | Address | [address] | | | [place] [address] | + + + | Home Phone [...] Team Providers + +------+ + | Care Pivot Maker Name | Role | Phone | [...] CLINIC [address] | [place] [address] | | | | | [address] [place], | [phone] | | | | | [place] [address] | | | | | | [phone] | | | +--------+ + + + [...] be different f rom the original. Andrea uSh come to the clinic today for a [...] | | | | | [place] [address] | | | | | | [phone] | | | | | | | | +--------+ + + + + | 10/30/ | Office | Primary Care | Erika Ernst, | | | 2019 | Visit | | DO [address] | | | | | | [place] [address] | | | | | | [phone] | | | | | | | [...] [place] | | | | | | [address] | | | | | | [phone] | | | | | | | | +--------+ + + + + | 02/09/ | Office | Neurology | Dhara, | | | 2019 | Visit | | [address] | | | | | | [address] [place], | | | | | | [place] [address] | | | | | | [phone] | | | | | | | | +--------+ + + + + documented as of this encounter Visit Diagnoses Not on filedocumented in this encounter"
--- OUTSIDE RECORDS SUMMARY | ~2019-09-30 | XMS | Encounter Summary ---
Demographics + + + | Address | [address] | | | [place] [address] | + + + | Home Phone [...] Team Providers + +------+ + | Care Gerontology Aide Name | Role | Phone | [...] | asthma with | [place], | [place] | | | | | acute | [place] [address] | Health and | | | | | exacerbation | Phone: | Service | | | | | | [phone] | | | | | | | Fax: | | | | | | | [phone] | | +--------+ + + + + [...] | | | | ic brain | [place], | [place] | | | | | syndrome | [place] [address] | [place], [place] | | | | | | Phone: | [phone] Phone: | | | | | | [phone] | [phone] | | | | | | Fax: | Fax: | | | | | | [phone] | [phone] | + + + + + + [...] persistent | | 2019 | Visit | [facility] | DO [address] | asthma with acute | | | | MEDICAL [facility] [address] | [facility] [address] | exacerbation | | | | [address] [place], | [phone] | (Primary Dx); | | | | [place] [address] | | Environmental | | | | [phone] | | allergies; | | | | [...] yet. She had seen Dr Pruett [facility] [place] last Fall and in Nov but would like to see a different scada technician for second opinion. Dr Pruett focused on [...] Referral to [facility] Plan: Referral to Genetic Scientist for second opinion and continue current inhalers. [...] | | | | | [place] [address] | | | | | | [phone] | | | | | | | | +--------+ + + + + | 10/30/ | Office | Primary Care | Erika Ernst, | | | 2019 | Visit | | DO [address] | | | | | | [place] [address] | | | | | | [phone] | | | | | | | [...] [place] | | | | | | [address] | | | | | | [phone] | | | | | | | | +--------+ + + + + | 02/09/ | Office | Neurology | Dhara, | | | 2019 | Visit | | [address] | | | | | | [address] [facility], | | | | | | [place] [address] | | | | | | [phone] | | | | | | | [...]
--- OUTSIDE RECORDS SUMMARY | ~2019-09-30 | XMS | Encounter Summary ---
Demographics + + + | Address | [address] | | | [place] [address] | + + + | Home Phone [...] Providers + +------+ + | Care Care Connector Name | Role | Phone | + [...] deficiency | | 2019 | Visit | [facility] | DO [address] | (Primary Dx); | | | | MED[facility] [address] | [place] [address] | Essential | | | | [address] [place], | [phone] | hypertension; Asthma | | | | [place] [address] | | due to | | | | [phone] | | environmental | | | | [...] | | | | | [place] [address] | | | | | | [phone] | | | | | | | | +--------+ + + + + | 10/30/ | Office | Primary Care | Erika Ernst, | | | 2019 | Visit | | DO [address] | | | | | | [place] [address] | | | | | | [phone] | | | | | | | [...] [place] | | | | | | [address] | | | | | | [phone] | | | | | | | | +--------+ + + + + | 02/09/ | Office | Neurology | Dhara, | | | 2019 | Visit | | [address] | | | | | | [address] [place], | | | | | | [place] [address] | | | | | | [phone] | | | | | | | [...] + + | [place] [facility] | [address] | [place] [address] | [phone] | | [facility] | | | [...]
--- OUTSIDE RECORDS SUMMARY | ~2019-09-30 | XMS | Encounter Summary ---
Demographics + + + | Address | [address] | | | [place] [address] | + + + | Home Phone [...] Team Providers + +------+ + | Care Well Logger Name | Role | Phone | + [...] | MED[facility] [address] | [place] [address] | Dx); Right hand | | | | [address] [place], | [phone] | pain; Foot pain, | | | | [place] [address] | | left; Tongue sore; | | | | [phone] | | Anemia, unspecified | | | [...] had a fall when she tripped on [facility] on 05/10 and went to ER. Xrays [...] | | | | | [place] [address] | | | | | | [phone] | | | | | | | | +--------+ + + + + | 10/30/ | Office | Primary Care | Erika Ernst, | | | 2019 | Visit | | DO [address] | | | | | | [place] [address] | | | | | | [phone] | | | | | | | [...] [place] | | | | | | [address] | | | | | | [phone] | | | | | | | | +--------+ + + + + | 02/09/ | Office | Neurology | Dhara, | | | 2019 | Visit | | [address] | | | | | | [address] [place], | | | | | | [place] [address] | | | | | | [phone] | | | | | | | [...] + + | [place] [facility] | [address] | [place] [address] | [phone] | | [facility] | | | [...] + + | [place] [facility] | [address] | [place] [address] | [phone] | | [facility] | | | [...] + + | [place] [facility] | [address] | [place] [address] | [phone] | | [facility] | | | [...] + + | [place] [facility] | [address] | [place] [address] | [phone] | | [facility] | | | [...]
--- OUTSIDE RECORDS SUMMARY | ~2019-09-30 | XMS | Encounter Summary ---
Demographics + + + | Address | [address] | | | [place] [address] | + + + | Home Phone [...] Team Providers + +------+ + | Care Deicer Repairer Electric Name | Role | Phone | + [...] | 2019 | | [facility] | Systems Programmer | | | | | [address] [place] | | | | | | [place] | | | | | | [address] | | | | | | [phone] | | | +--------+ + + + [...] | | | | | [place] [address] | | | | | | [phone] | | | | | | | | +--------+ + + + + | 10/30/ | Office | Primary Care | Erika Ernst, | | | 2019 | Visit | | DO [address] | | | | | | [place] [address] | | | | | | [phone] | | | | | | | [...] [place] | | | | | | [address] | | | | | | [phone] | | | | | | | | +--------+ + + + + | 02/09/ | Office | Neurology | Dhara, | | | 2019 | Visit | | [address] | | | | | | [address] [place], | | | | | | [place] [address] | | | | | | [phone] | | | | | | | [...] + + | [place] [facility] | [address] | [place] [address] | [phone] | | [facility] | | | | + + + + + documented in this encounter Visit Diagnoses + + | Diagnosis | + + | Lymphocytosis Lymphocytosis (symptomatic) | + + documented in this encounter"
--- OUTSIDE RECORDS SUMMARY | ~2019-09-30 | XMS | Clinical Summary ---
Demographics + + + | Address | [address] | | | [place] [address] | + + + | Home Phone [...] Team Providers + +------+ + | Care Regulatory Intern Name | Role | Phone | [...] | | + + + +---------+------+------+-------+ | Cetirizine HCl | Take by mouth. Once | | 0 | | | Activ | | (ZYRTEC PO) | a week | | | | | e | + + + +---------+------+------+-------+ | fluticasone [...] tablet by | 60 | 0 | 08/2 | | Activ | | (ANTIVERT) 12.5 mg | mouth every 6 hours | tablet | | 3/20 | | e | | tablet | if needed for | | | 19 | | | | | dizziness | | | | | | + + + +---------+------+------+-------+ | MAGNESIUM CHLORIDE | Take by mouth. | | 0 | | | Activ | | PO | | | | | | e | + + + +---------+------+------+-------+ | UNABLE TO FIND | Med Name: nell | | 0 | | | Activ | | | | | | | | e | + + + +---------+------+------+-------+ | busPIRone (BUSPAR) | Take 7.5 mg six | 180 | 11 | 09/0 | | Activ | | 7.5 MG tablet | times a day | tablet | | 3/20 | | e | | | | | | 19 | | | + + + +---------+------+------+-------+ | levothyroxine | Take 50 mcg daily | 30 | 11 | 06/02 | | Activ | | (SYNTHROID) 50 mcg | | tablet | | 04/20 | | e | | tablet | | | | 19 | | | + + + +---------+------+------+-------+ | Fluticasone | Inhale into the | | 0 | | | Activ | | Furoate-Vilanterol | lungs. | | | | | e | | (BREO ELLIPTA IN) | | | | | | | + + + +---------+------+------+-------+ | traMADol (ULTRAM) | Take 50 mg by mouth | | 0 | | | Activ | | 50 mg tablet | every 6 hours as | | | | | e | | | needed. | | | | | | + + + +---------+------+------+-------+ | Zinc 10 MG LOZG | | | 0 | 09/0 | | Activ | | | | | | /20 | | e | | | | | | 19 | | | + + + +---------+------+------+-------+ | albuterol 2.5 mg/3 | Inhale 1-2 | 60 vial | 0 | 11/1 | | Activ | | mL nebulizer | treatments in | | | 2/20 | | e | | solution | nebulizer every 20 | | | 19 | | | | | minutes for [...] | | + + + +---------+------+------+-------+ | prazosin | Take BID | 60 | 11 | 12/2 | | Activ | | (MINIPRESS) 1 mg | | capsule | | 0/20 | | e | | capsule | | | | 19 | | | + + + +---------+------+------+-------+ | ferrous sulfate | 3 ml liquid iron TID | 150 mL | 5 | 12/2 | | Activ | | (TARAN-IN-HEMANTH) 15 | | | | 3/20 | | e | | mg/mL SOLN | | | | 19 | | | + + + +---------+------+------+-------+ | ciprofloxacin | Take 1 tablet by | 14 | 0 | 12/2 | 12/3 | Activ | | (CIPRO) 500 mg | mouth 2 times daily | tablet | | 4/20 | 1/20 | e | | tablet | for 7 days. | | | 19 | 19 | | + + + +---------+------+------+-------+ | | Inhale 1 puff into | 1 | 5 | 11/0 | 12/ | Disco | | albuterol-ipratropiu | the lungs every 4 | Inhaler | | 6/ | /20 | ntinu | | m (COMBIVENT | hours as needed for | | | 18 | 19 | ed | | RESPIMAT) 100-20 | Shortness of Breath. | | | | | (Reor | | mcg/puff inhaler | | | | | | cody) | + + + +---------+------+------+-------+ | diclofenac | apply 1 gram | 100 g | 3 | 08 | 12/ | Disco | | (VOLTAREN) 1% GEL | topically twice a | | | 11/21 | 04/20 | ntinu | | | day if needed | | | 19 | 19 | ed | | | | | | | | (Ther | | | | | | | | apy | | | | | | | | compl | | | | | | | | eted) | + + + +---------+------+------+-------+ | cyclobenzaprine | TID prn | 30 | 2 | 05/3 | 12/2 | Disco | | (FLEXERIL) 10 mg | | tablet | | 0/20 | 7/20 | ntinu | | tablet | | | | 19 | 19 | ed | | | | | | | | (Ninfa | | | | | | | | ent | | | | | | | | Not | | | | | | | | Takin | | | | | | | | g) | + + + +---------+------+------+-------+ | | Take 1 tablet by | 14 | 0 | 04/02 | 09/02 | Disco | | pseudoephedrine-guai | mouth 2 times daily. | tablet | | 10/21 | 04/20 | ntinu | | FENesin (MUCINEX D) | | | | 19 | 19 | ed | | 60-600 mg per 12 hr | | | | | | (Ninfa | | tablet | | | | | | ent | | | | | | | | Not | | | | | | | | Takin | | | | | | | | g) | + + + +---------+------+------+-------+ | ferrous sulfate | Take 1 tablet by | 90 | 11 | 06/02 | 09/02 | Disco | | 325 mg tablet | mouth 3 times daily | tablet | | 04/20 | 12/19 | ntinu | | | (with meals). | | | 19 | 19 | ed | | | | | | | | (Alte | | | | | | | | rnate | | | | | | | | | | | | | | | | thera | | | | | | | | py) | + + + +---------+------+------+-------+ | ramipril (ALTACE) | Take 1 capsule by | 30 | 11 | 10/1 | 12/1 | Disco | | 5 mg capsule | mouth Daily. | capsule | | 8/20 | 3/20 | ntinu | | | | | | 19 | 19 | ed | | | | | | | | (Reor | | | | | | | | cody) | + + + +---------+------+------+-------+ | prazosin | Take 1 capsule by | 30 | 11 | 10/3 | 12/2 | Disco | | (MINIPRESS) 1 mg | mouth nightly. | capsule | | 1/20 | 0/20 | ntinu | | capsule | | | | 19 | 19 | ed | | | | | | | | (Reor | | | | | | | | cody) | + + + +---------+------+------+-------+ | montelukast | take 1 tablet by | 30 | 11 | 11/0 | 12/2 | Disco | | (SINGULAIR) 10 mg | mouth every evening | tablet | | 6/20 | 7/20 | ntinu | | tablet | | | | 19 | 19 | ed | | | | | | | | (Ninfa | | | | | | | | ent | | | | | | | | Not | | | | | | | | Takin | | | | | | | | g) | + + + +---------+------+------+-------+ | | Take 5-10 mLs by | 120 mL | 0 | 11/0 | 12/2 | Disco | | guaiFENesin-codeine | mouth every 6 hours | | | 04/20 | 04/20 | ntinu | | (ROBITUSSIN AC) | as needed for Cough. | | | 19 | 19 | ed | | 100-10 mg/5 mL | | | | | | (Ninfa | | liquidIndications: | | | | | | ent | | Moderate asthma with | | | | | | Not | | exacerbation, | | | | | | Takin | | unspecified whether | | | | | | g) | | persistent, Cough | | | | | | | | productive of | | | | | | | | purulent sputum | | | | | | | + + + +---------+------+------+-------+ | beclomethasone | Inhale 2 puffs into | 2 | 11 | 11/1 | 12/2 | Disco | | (QVAR) 80 mcg/puff | the lungs 2 times | Inhaler | | 12/19 | 04/20 | ntinu | | inhaler | daily. | | | 19 | 19 | ed | | | | | | | | (Ther | | | | | | | | apy | | | | | | | | compl | | | | | | | | eted) | + + + +---------+------+------+-------+ | ramipril (ALTACE) | Take 2.5 mg daily | 30 | 11 | 08/02 | 12/ | Disco | | 2.5 mg capsule | with 5mg to equal | capsule | | 9/20 | 3/20 | ntinu | | | 7.5 mg dose. | | | 19 | 19 | ed | | | | | | | | (Alte | | | | | | | | rnate | | | | | | | | | | | | | | | | thera | | | | | | | | py) | + + + +---------+------+------+-------+ | SUMAtriptan | TAKE ONE TABLET BY | 9 | 0 | 11/2 | 12/ | Disco | | (IMITREX) 100 mg | MOUTH AT FIRST ONSET | tablet | | 0/20 | 8/20 | ntinu | | tablet | OF MIGRAINE | | | 19 | 19 | ed | | | SYMPTOMS, MAY REPEAT | | | | | | | | AFTER 2 HOURS; MAX | | | | | | | | DOSE 200MG IN 24 | | | | | | | | HOURS | | | | | | + + + +---------+------+------+-------+ | predniSONE | Take 2 tablets by | 8 | 0 | 12/0 | 12/ | Expir | | (DELTASONE) 20 mg | mouth Daily for 5 | tablet | | 06/21 | 01/19 | ed | | tablet | days. | | | 19 | 19 | | + + + +---------+------+------+-------+ | ramipril (ALTACE) | Take 1 capsule by | 30 | 11 | 09/01 | 09/01 | Disco | | 10 MG capsule | mouth Daily. | capsule | | 3/ | 05/21 | ntinu | | | | | | 19 | 19 | ed | + + + +---------+------+------+-------+ | SUMAtriptan | take 1 tablet by | 9 | 0 | 12/ | 12/ | Disco | | (IMITREX) 100 mg | mouth AT ONSET OF | tablet | | 05/21 | 04/20 | ntinu | | tablet | MIGRAINE may repeat | | | 19 | 19 | ed | | | in 2 hours maximum | | | | | (Ninfa | | | daily dose of 2 | | | | | ent | | | daily | | | | | Not | | | | | | | | Takin | | | | | | | | g) | + + + +---------+------+------+-------+ | ramipril (ALTACE) | Take 1 capsule by | 60 | 11 | 12/1 | 12/2 | Disco | | 5 mg | mouth 2 times daily. | capsule | | 8/20 | 7/20 | ntinu | | capsuleIndications: | | | | 19 | 19 | ed | | Hypertension, | | | | | | (Ninfa | | unspecified type | | | | | | ent | | | | | | | | Not | | | | | | | | Takin | | | | | | | | g) | + + + +---------+------+------+-------+ | prazosin | Take 1 capsule by | 30 | 11 | 12/2 | 12/2 | Disco | | (MINIPRESS) 1 mg | mouth nightly. | capsule | | 0/20 | 0/20 | ntinu | | capsule | | | | 19 | 19 | ed | | | | | | | | (Reor | | | | | | | | cody) | + + + +---------+------+------+-------+ Active Problems + + + | Problem | Noted Date | + + + | Multiple thyroid [...] + | Overview: Genetic testing done by Senior Ruby Developer specialist and has 42% | | increase [...] | +--------+ + + + + | 09/29/ | Office | Immediate Care | Nicanor Mckeon | Flu-like symptoms | | 2018 | Visit | | MD Caryn | (Primary Dx) | +--------+ + + + + | 09/27/ | Office | Primary Care | Betsy Ernst, | Cough (Primary Dx); | | 2018 | Visit | | DO | Essential | | | | | | hypertension; Iron | | | | | | deficiency; Acute | | | | | | cystitis with | | | | | | hematuria | +--------+ + + + + | 09/27/ | Telephone | Primary Care | Betsy Ernst, | Lab Results | | 2018 | | | DO | | +--------+ + + + + | 09/26/ | Hospital | Radiology | Betsy Ernst, | Pain of upper | | 2018 | Encounter | | DO | abdomen | +--------+ + + + + | 09/26/ | Telephone | Orthopedic Surgery | Jeffrey Gandhi, | Other | | 2018 | | | MD | | +--------+ + + + + | 09/26/ | Telephone | Primary Care | Betsy Ernst, | Ankle Pain (Pt | | 2018 | | | DO | request call back | | | | | | today re: right | | | | | | ankle sprain) | +--------+ + + + + | 09/26/ | Telephone | Primary Care | Betsy Ernst, | Results, Imaging | | 2018 | | | DO | | +--------+ + + + + | 09/26/ | Telephone | Primary Care | Betsy Ernst, | Appointment Question | | 2018 | | | DO | | +--------+ + + + + | 09/24/ | Telephone | Primary Care | Betsy Ernst, | Lab Results | | 2018 | | | DO | | +--------+ + + + + | 09/24/ | Orders Only | Primary Care | Betsy Ernst, | | | 2018 | | | DO | | +--------+ + + + + | 09/23/ | Office | Primary Care | Betsy Ernst, | Essential | | 2019 | Visit | | DO | hypertension | | | | | | (Primary Dx); Iron | | | | | | deficiency; Asthma | | | | | | due to environmental | | | | | | allergies; Dysuria; | | | | | | Pain of upper | | | | | | abdomen; Breast | | | | | | cancer screening, | | | | | | high risk patient; | | | | | | Breast cancer | | | | | | screening by | | | | | | mammogram | +--------+ + + + + | 09/23/ | Telephone | Orthopedic Surgery | Herbert Herron | Results | | 2019 | | | LISA Abad | | +--------+ + + + + | 09/23/ | Telephone | Orthopedic Surgery | Herbert Herron | Other (requesting | | 2018 | | | LISA Abad | results) | +--------+ + + + + | 09/20/ | Hospital | Radiology | Herbert Herron | Right foot pain; | | 2018 | Encounter | | LISA Abad | Status post right | | | | | | foot surgery; | | | | | | Swelling of foot | | | | | | joint, right | +--------+ + + + + | 09/20/ | Clinical | Primary Care | Betsy Ernst, | | | 2018 | Support | | DO | | +--------+ + + + + | 09/19/ | Office | Orthopedic Surgery | Jeffrey Gandhi, | Radial styloid | | 2018 | Visit | | MD | tenosynovitis (de | | | | | | quervain) (Primary | | | | | | Dx); Right wrist | | | | | | pain | +--------+ + + + + | 09/19/ | Clinical | Primary Care | Betsy Ernst, | | | 2018 | Support | | DO | | +--------+ + + + + | 09/19/ | Telephone | Primary Care | Betsy Ernst, | Other (referral) | | 2018 | | | DO | | +--------+ + + + + | 09/19/ | Orders Only | Primary Care | Betsy Ernst, | Iron deficiency | | 2018 | | | DO | (Primary Dx) | +--------+ + + + + | 09/18/ | Telephone | Primary Care | Denise Mcgregor | Medication | | 2018 | | | KAREN Kent | Management | +--------+ + + + + | 09/18/ | Refill | Immediate Care | Brandi Pitts | Medication Refill | | 2018 | | | DO Jadyn | | +--------+ + + + + | 09/17/ | Telephone | Primary Care | Betsy Ernst | LABS | | 2018 | | | DO | | +--------+ + + + + | 09/13/ | Office | Primary Care | Betsy Ernst, | Iron deficiency | | 2018 | Visit | | DO | (Primary Dx); | | | | | | Essential | | | | | | hypertension; | | | | | | Moderate persistent | | | | | | asthma with acute | | | | | | exacerbation | +--------+ + + + + | 09/11/ | Clinical | Primary Care | Betsy Ernst, | | | 2019 | Support | | DO | | +--------+ + + + + | 09/11/ | Hospital | Nutrition | Betsy Ernst, | Essential | | 2019 | Encounter | | DO Janel Webster | hypertension, | | | | | G, RD | malignant; Morbid | | | | | | obesity (HCC); | | | | | | Dietary counseling | | | | | | and surveillance; | | | | | | Body mass index | | | | | | 50.0-59.9, adult | | | | | | (HCC) | +--------+ + + + + | 09/11/ | Refill | Primary Care | Betsy Ernst, | Medication Refill | | 2018 | | | DO | | +--------+ + + + + | 09/10/ | Clinical | Primary Care | Betsy Ernst, | | | 2018 | Support | | DO | | +--------+ + + + + | 09/10/ | Telephone | Emergency Medicine | Mayuri Nowak | Medical Problem | | 2019 | | | BAKARI Abad | | +--------+ + + + + | 09/09/ | Emergency | Emergency Medicine | Amparo Timmons | Swelling of throat | | 2019 | | | C, 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 | (Primary Dx) | +--------+ + + + + | 09/09/ | Telephone | Primary Care | Betsy Ernst, | LABS (Ok to call pt | | 2019 | | | DO | on 09-10-19 - Pt | | | | | | needs to know when | | | | | | she's due for lab | | | | | | draw) | +--------+ + + + + | 09/08/ | Orders Only | Otolaryngology | Anthony Alvarado MD | Left thyroid nodule | | 2018 | | | | (Primary Dx) | +--------+ + + + + | 09/07/ | Clinical | Immediate Care | Maryse Langford | | | 2018 | Support | | DWAINE Rob | | +--------+ + + + + | 09/06/ | Telephone | Primary Care | Betsy Ernst, | Blood Pressure (low) | | 2018 | | | DO | | +--------+ + + + + | 09/04/ | Office | Primary Care | Carlos Roberts, | Pain aggravated by | | 2018 | Visit | | MEDICAL EQUIPMENT REPAIRER | swallowing (Primary | | | | | | Dx) | +--------+ + + + + | 09/04/ | Telephone | Orthopedic Surgery | Herbert Herron | Other | | 2018 | | | LISA Abad | | +--------+ + + + + | 09/02/ | Clinical | Primary Care | Jenise Benitez, | | | 2018 | Support | | SURGERY SCHEDULING COORDINATOR | | +--------+ + + + + | 09/02/ | Hospital | Radiology | Anthony Alvarado MD | Left thyroid nodule | | 2018 | Encounter | | Verónica Castillo Wgr | | +--------+ + + + + | 09/02/ | Orders Only | Otolaryngology | Anthony Alvarado MD | Left thyroid nodule | | 2019 | | | | | +--------+ + + + + | 09/02/ | Telephone | Primary Care | Betsy Ernst, | Blood Pressure | | 2018 | | | DO | | +--------+ + + + + | 08/28/ | Orders Only | Primary Care | Betsy Ernst, | Injury of right | | 2018 | | | DO | hand, subsequent | | | | | | encounter (Primary | | | | | | Dx) | +--------+ + + + + | 08/27/ | Telephone | Primary Care | Betsy Ernst, | Referral | | 2018 | | | DO | | +--------+ + + + + | 08/26/ | Telephone | Primary Care | Betsy Ernst, | ED Follow-up | | 2019 | | | DO | | +--------+ + + + + | 08/22/ | Emergency | Emergency Medicine | Denis Araya, | Acute cystitis | | 2019 | | | MEDICAL EQUIPMENT REPAIRER | without hematuria | | | | | | (Primary Dx); | | | | | | Vomiting, | | | | | | intractability of | | | | | | vomiting not | | | | | | specified, presence | | | | | | of nausea not | | | | | | specified, | | | | | | unspecified vomiting | | | | | | type | +--------+ + + + + | 08/22/ | Telephone | Primary Care | Betsy Ernst, | Medication Question | | 2018 | | | DO | | +--------+ + + + + | 08/21/ | Office | Immediate Care | Brandi Pitts | 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 (Primary | | | | | | Dx); Intractable | | | | | | vomiting with | | | | | | nausea, unspecified | | | | | | vomiting type | +--------+ + + + + | 08/21/ | Orders Only | Primary Care | Betsy Ernst, | Injury of right | | 2018 | | | DO | hand, subsequent | | | | | | encounter (Primary | | | | | | Dx) | +--------+ + + + + | 08/20/ | Office | Primary Care | Betsy Ernst, | Essential | | 2019 | Visit | | DO | hypertension | | | | | | (Primary Dx); Iron | | | | | | deficiency; Acquired | | | | | | hypothyroidism; | | | | | | PTSD [...] + + | 08/20/ | Telephone | Primary Care | Betsy Ernst, | Referral | | 2018 | | | DO | | +--------+ + + + + | 08/20/ | Telephone | Primary Care | Betsy Ernst, | Referral Question | | 2018 | | | DO | | +--------+ + + + + | 08/20/ | Telephone | Neurology | Luis Nichole MD | Pain | | 2018 | | | | | +--------+ + + + + | 08/19/ | Telephone | Primary Care | Betsy Ernst, | Lab Order | | 2018 | | | DO | | +--------+ + + + + | 08/19/ | Telephone | Neurology | Luis Nichole MD | Pain | | 2018 | | | | | +--------+ + + + + | 08/19/ | Telephone | Neurology | Luis Nichole MD | Other | | 2018 | | | | | +--------+ + + + + | 08/17/ | Procedure | Neurology | Luis Nichole MD | Bilateral carpal | | 2018 | visit | | | tunnel syndrome | | | | | | (Primary Dx); | | | | | | Numbness | +--------+ + + + + | 08/16/ | Telephone | Neurology | Luis Nichole MD | Other | | 2018 | | | | | +--------+ + + + + | 08/16/ | Telephone | Orthopedic Surgery | Yari Noriega | Chris (RICCI from ED in | | 2018 | | | MD Malcolm | [place]) | +--------+ + + + + | 08/16/ | Telephone | Primary Care | Betsy Ernst, | Appointment | | 2018 | | | DO | | +--------+ + + + + | 08/14/ | Telephone | Primary Care | Betsy Ernst, | Medication Question | | 2018 | | | DO | | +--------+ + + + + | 08/14/ | Telephone | Primary Care | Betsy Ernst, | Medication Refill | | 2018 | | | DO | | +--------+ + + + + | 08/13/ | Office | Orthopedic Surgery | Yari Noriega | Canceled (Clinic | | 2018 | Visit | | MD Malcolm | and/or Provider | | | | | | Cancellation) | +--------+ + + + + | 08/13/ | Telephone | Primary Care | Betsy Ernst, | Medication Refill | | 2018 | | | DO | | +--------+ + + + + | 08/13/ | Orders Only | Primary Care | Betsy Ernst, | Injury of right | | 2018 | | | DO | hand, subsequent | | | | | | encounter (Primary | | | | | | Dx) | +--------+ + + + + | 08/12/ | Office | Neurology | Luis Nichole MD | 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) | +--------+ + + + + | 08/10/ | Clinical | Immediate Care | Maryse Langford | | 2018 | Support | | DWAINE Rob | | +--------+ + + + + | 08/10/ | Refill | Primary Care | Betsy Ernst, | Medication Refill; | | 2018 | | | DO | Medication Question | | | | | | (Please have | | | | | | Chad call patient | | | | | | Monday re: | | | | | | medication | | | | | | question); | | | | | | Medication Refill; | | | | | | Medication Question | | | | | | (please call and | | | | | | advise) | +--------+ + + + + | 08/09/ | Telephone | Primary Care | Betsy Ernst, | Referral | | 2018 | | | DO | | +--------+ + + + + | 08/08/ | Office | Primary Care | Harvey, | Moderate asthma with | | 2019 | Visit | | DWAINE Niño | exacerbation, | | | | | | unspecified whether | | | | | | persistent (Primary | | | | | | Dx); Cough | | | | | | productive of | | | | | | purulent sputum | +--------+ + + + + | 08/08/ | Telephone | Primary Care | Betsy Ernst, | Medication Question | | 2018 | | | DO | | +--------+ + + + + | 08/08/ | Telephone | Neurology | Luis Nichole MD | Appointment Question | | 2018 | | | | | +--------+ + + + + | 08/07/ | Refill | Primary Care | Betsy Ernst, | Medication Refill | | 2018 | | | DO | | +--------+ + + + + | 08/05/ | Telephone | Primary Care | Betsy Ernst, | Cough | | 2018 | | | DO | | +--------+ + + + + | 08/05/ | Telephone | Neurology | Luis Nichole MD | Appointment Question | | 2018 | | | | | +--------+ + + + + | 08/01/ | Office | Otolaryngology | Anthony Alvarado MD | Multiple thyroid | | 2018 | Visit | | | nodules; Left | | | | | | thyroid nodule | +--------+ + + + + | 08/01/ | Office | Primary Care | Betsy Ernst, | Essential | | 2018 | Visit | | DO | hypertension | | | | | | (Primary Dx); | | | | | | Acquired | | | | | | hypothyroidism; Iron | | | | | | deficiency; PTSD | | | | | | (post-traumatic | | | | | | stress disorder) | +--------+ + + + + | 08/01/ | Telephone | Orthopedic Surgery | Yari Noriega | Other (Dr. Noriega to | | 2018 | | | MD Malcolm | review ) | +--------+ + + + + | 08/01/ | Telephone | Primary Care | Betsy Ernst, | Injections | | 2018 | | | DO | (information re: | | | | | | shingles injection); | | | | | | Injections | +--------+ + + + + | 07/31/ | Office | Primary Care | Betsy Ernst, | Hand injury, right, | | 2018 | Visit | | DO | subsequent encounter | | | | | | (Primary Dx); | | | | | | Finger pain, right | +--------+ + + + + | 07/30/ | Telephone | Orthopedic Surgery | Alena Mehta | Other | | 2018 | | | BAKARI Cahpin | | +--------+ + + + + | 07/26/ | Telephone | Primary Care | Betsy Ernst, | Other | | 2018 | | | DO | | +--------+ + + + + | 07/25/ | Telephone | Orthopedic Surgery | Yari Noriega | Chris (appt | | 2018 | | | MD Malcolm | question) | +--------+ + + + + | 07/24/ | Telephone | Primary Care | Betsy Ernst, | Results | | 2018 | | | DO | | +--------+ + + + + | 07/23/ | Hospital | Radiology | Herbert Herron | Right foot pain | | 2018 | Encounter | | LISA Abad | | +--------+ + + + + | 07/23/ | Office | Orthopedic Surgery | Herbert Herron | Right foot pain | | 2018 | Visit | | LISA Abad | (Primary Dx); Status | | | | | | post right foot | | | | | | surgery; Swelling of | | | | | | foot joint, right | +--------+ + + + + | 07/23/ | Clinical | Primary Care | Betsy Ernst, | | | 2018 | Support | | DO | | +--------+ + + + + | 07/22/ | Telephone | Primary Care | Betsy Ernst | Tacho | | 2018 | | | DO | | +--------+ + + + + | 07/20/ | Office | Immediate Care | Maryse Langford | Tacho (Primary Dx) | | 2018 | Visit | | DWAINE Rob | | +--------+ + + + + | 07/19/ | Orders Only | Primary Care | Betsy Ernst, | Essential | | 2018 | | | DO | hypertension | | | | | | (Primary Dx) | +--------+ + + + + | 07/18/ | Clinical | Primary Care | Betsy Ernst, | | 2018 | Support | | DO | | +--------+ + + + + | 07/18/ | Clinical | Orthopedic Surgery | Yari Noriega | Post-op pain | | 2018 | Support | | MD Malcolm | (Primary Dx) | +--------+ + + + + | 07/18/ | Telephone | Primary Care | Betsy Ernst, | Blood Pressure | | 2018 | | | DO | (elevated) | +--------+ + + + + | 07/17/ | Office | Obstetrics and | Stephanie Avery | Dysmenorrhea | | 2018 | Visit | Gynecology | DO Radha | (Primary Dx) | +--------+ + + + + | 07/17/ | Hospital | Nutrition | Betsy Ernst, | Essential | 2018 | Encounter | | DO Janel Webster | hypertension, | | | | | G, RD | malignant; Simple | | | | | | obesity; Body mass | | | | | | index 50.0-59.9, | | | | | | adult (HCC); Dietary | | | | | | counseling and | | | | | | surveillance | +--------+ + + + + | 07/17/ | Hospital | Radiology | Betsy Ernst, | Acute right ankle | 2018 | Encounter | | DO | pain | +--------+ + + + + | 07/17/ | Office | Primary Care | Betsy Ernst, | Essential | | 2019 | Visit | | DO | hypertension | | | | | | (Primary Dx); | | | | | | Environmental | | | | | | allergies; Acute | | | | | | recurrent frontal | | | | | | sinusitis; Acute | | | | | | right ankle pain | +--------+ + + + + | 07/17/ | Telephone | Primary Care | Betsy Ernst, | Results, Imaging | | 2018 | | | DO | | +--------+ + + + + | 07/17/ | Telephone | Primary Care | Betsy Ernst, | Referral (Follow up) | | 2018 | | | DO | | +--------+ + + + + | 07/17/ | Telephone | Neurology | Luis Nichole MD | Patient Concerns | | 2018 | | | | | +--------+ + + + + | 07/17/ | Telephone | Orthopedic Surgery | Yari Noriega | Follow-up | | 2018 | | | MD Malcolm | | +--------+ + + + + | 07/05/ | Office | Primary Care | Betsy Ernst, | Asthma due to | 2018 | Visit | | DO | environmental | | | | | | allergies (Primary | | | | | | Dx); Thyroid cyst | +--------+ + + + + | 07/03/ | Telephone | Orthopedic Surgery | Yari Noriega | Other (questions | 2018 | | | MD Malcolm | regarding swelling) | +--------+ + + + + | 07/02/ | Office | Orthopedic Surgery | Yari Noriega | Right wrist pain | | 2018 | Visit | | MD Malcolm | (Primary Dx); S/P | | | | | | right [facility] | | | | | | tenosynovectomy on | | | | | | 03/20/19 | +--------+ + + + + | 07/02/ | Orders Only | Primary Care | Betsy Ernst, | Left thyroid nodule | | 2018 | | | DO | (Primary Dx) | +--------+ + + + + | 07/02/ | Telephone | Primary Care | Betsy Ernst, | Results, Imaging | | 2018 | | | DO | | +--------+ + + + + | 07/02/ | Orders Only | Primary Care | Betsy Ernst, | Thyroid cyst | | 2018 | | | DO | | +--------+ + + + + | 07/01/ | Office | Immediate Care | Alem Guerrero, | Moderate persistent | | 2018 | Visit | | [employer]ULING [employer]ORD[employer] | asthma with acute | | | | | | exacerbation | | | | | | (Primary Dx) | +--------+ + + + + | 07/01/ | Telephone | Primary Care | Betsy Ernst, | Medication Question | | 2018 | | | DO | (Problem w/Asthma) | +--------+ + + + + from [...] | Heart attack | Maternal | | CT | | | Aunt | | | [...] 10/01/ | Office | Primary Care | Betsy Ernst, | | | 2018 | Visit | | DO [address] | | | | | | [place] [address] | | | | | | [phone] | | | | | | | | +--------+ + + + + | 10/30/ | Office | Primary Care | Betsy Ernst, | | | 2019 | Visit | | DO [address] | | | | | | [place] [address] | | | | | | [phone] | | | | | | | [...] [place] | | | | | | [address] | | | | | | [phone] | | | | | | | | +--------+ + + + + | 02/09/ | Office | Neurology | Dhara, | | | 2019 | Visit | | DWAINE Ross [address] [place], | | | | | | [place] [address] | | | | | | [phone] | | | | | | | | +--------+ + + + + + + + + + | Health Maintenance | Due Date | Last Done | Comments | + + + + + | Cervical Cancer | | 05/21/2013 | | | Screening (Pap) | 6 | | | + + + + + | Primary Care | | 09/27/2019, 09/23/2019, | | | Outreach (Moderate | 0 | 09/19/2019, Additional history | | | Risk) | [...] 05/16/2019, 05/15/2019, | | | | | 05/16/2018, Additional history | | | | | [...] | | | | | 11/25/ | [id number] | | Qty: 3 on 03/20/2019 by | | | | | 2023 | / | | Yari Noriega MD at | | | | | | /[id number] | | [facility] | | | | | | | + +------+------+ +--------+--------+--------+ Procedures + +--------+ + + + | Procedure Name | Priori | Date/Time | Associated Diagnosis | Comments | | | ty | | | | + +--------+ + + + | INFLUENZA A AND B | MELISSA | 09/27/2019 | Cough | Results for this | | [place], [place] | | 1:55 PM | | procedure are in the [...] + | CBC WITH | Routin | 09/23/2019 | Iron deficiency | Results for this | | DIFFERENTIAL | e | 3:58 PM | Pain of upper | procedure are in the | | | | PST | abdomen | results section. | + +--------+ + + + | COMPREHENSIVE | Routin | 09/23/2019 | Pain of upper | Results for this | | METABOLIC PANEL | e | 3:58 PM | abdomen | procedure are in the | | | | PST | | results section. | + +--------+ + + + | LIPASE | Routin | 09/23/2019 | Pain of upper | Results for this | | | e | 3:58 PM | abdomen | procedure are in the | | | | PST | | results section. | + +--------+ + + + | HEPATITIS PANEL, | Routin | 09/23/2019 | Pain of upper | Results for this | | ACUTE | e | 3:58 PM | abdomen | procedure are in the [...] + | CBC WITH | Routin | 09/17/2019 | Iron deficiency | Results for this | | DIFFERENTIAL | e | 5:03 PM | | procedure are in the | | | | PST | | results section. | + +--------+ + + + | IRON AND IRON | Routin | 09/17/2019 | Iron deficiency | Results for this | | BINDING CAPACITY | e | 5:03 PM | | procedure are in the | | | | PST | | results section. | + +--------+ + + + | FERRITIN | Routin | 09/17/2019 | Iron deficiency | Results for this | | | e | 5:03 PM | | procedure are in the [...] C?MRN: | | | | | | [id number] | | | [id number] | | | riteri | | | [...] | | | BETSY | | | A , DO | [...] | | | CHAD | | | BETSY | | | A | | | [...] +---+--------+ + +--------+ + + + | US [...] + | ED INFORMATION | Routin | 08/22/2019 | | | | EXCHANGE | e | 5:30 PM | | | | | | PST | | | + +--------+ + + + +---+--------+ | | | | | Proced | | | ure | | | Note - | | | Mitchel, | | | Lab In | | | | | | Hlseve | | | n - | | | | | | 2019 | | | 5:31 | | | PM PST | | [...] | | | FICATI | | | ON? | | | | | | 9 | | | 17:28? | | | NOBLIT | | | , | | | ZENY | | | C?MRN: | | | | | | [id number] | | | [id number] | | | riteri | | | [...] MED | | | | | | 2019-1 | | | [...] | | | VANI, | | | MEDICAL EQUIPMENT REPAIRER 0 | | | | | | [...] | | | sed | | | 122 | | | Unique | | | | | | Prescr | | | ibers | | | 5 | | | Unique | | | [...] | | Hospit | | | al 7 | | | Total | | | 9 | | | Note: | | | [...] | | | int | | | Nov | | | [...] | | | ne | | | Nov | | | [...] | | | BETSY | | | A , DO | [...] | | | CHAD | | | BETSY | | | A | | | [...] | | | /notif | | | [id number] | | | [id number] | | | [id number] | | | 16-[id number] | | | [id number] | | | [id number] | | | 4c | | | PLEASE | | | [...] +---+--------+ + +--------+ + + + | IMMUNOGLOBULIN E | Routin | 08/19/2019 | Recurrent URI | Results for this | | | e | 4:11 PM | (upper respiratory | procedure are in the | | | | PST | infection) Asthma, | results section. | | | | | unspecified asthma | | | | | | severity, | | | | | | unspecified whether | | | | | | complicated, | | | | | | unspecified whether | | | | | | persistent | | + +--------+ + + + | IMMUNOGLOBULIN G | Routin | 08/19/2019 | Recurrent URI | Results for this | | SUBCLASSES | e | 4:11 PM | (upper respiratory | procedure are in the | | | | PST | infection) Asthma, | results section. | | | | | unspecified asthma | | | | | | severity, | | | | | | unspecified whether | | | | | | complicated, | | | | | | unspecified whether | | | | | | persistent | | + +--------+ + + + | IMMUNOGLOBULIN, | Routin | 08/19/2019 | Recurrent URI | Results for this | | PANEL, IGG AND IGM | e | 4:11 PM | (upper respiratory | procedure are in the | | AND IGA | | PST | infection) Asthma, | results section. | | | | | unspecified asthma [...] + + | TSH | Routin | 07/24/2019 | Hypothyroidism, | Results for this | | | e | 8:39 AM | unspecified type | procedure are [...] + + from Last 3 Months Results Influenza A and B Ag, [place] [...] + + | [place] [facility] | [address] | [place] [address] | [phone] | | [facility] | | | | | [facility] | | | | + [...] with Culture if Indicated (09/23/2019 4:20 PM PST)Only the mos t recent of 2 results [...] - 1.030 | [place] | | | [place] | | | [facility] | | | [...] + + | [place] [facility] | [address] | [place] [address] | [phone] | | HOSPITAL LAB[facility]ATORY | | | [...] | | | | | | - JV | | | | | | STE[place] | | + + + + + + | Hepatitis B | NONREACTIVEComment: | | REFERENCE | | | Core Ab | :REFERENCE RANGE: | | [facility] | | | IgM | NONREACTIVE | | DIAGNOSTICS | | | | | | - VJ | | | | | | STEEN | | + + + + + + | Hepatitis A | NONREACTIVEComment: | | REFERENCE | | | Ab IgM | :REFERENCE RANGE: | | [facility] | | | | NONREACTIVE For | | DIAGNOSTICS | | | | additional information, | | - VJ | | | | please refer | | STEEN | | | | tohttp://education.quest | | | | | | diagnostics.Plango/faq/FAQ2 | | | | | | 02(This [...] | | | | | | - [place] | | | | | | STEEN | | + + + + + + | Signal/Cuto | 0.01Comment: HCV | | REFERENCE | | | ff | antibody was | | [facility] | | | | non-reactive. There is | | DIAGNOSTICS | | | | no laboratory evidence | | - ZABALA | | | | ofHCV infection. In [...] | | | | | | code 62360) is | | | | | | [...] seehttps://education.que | | | | | | I Do Now I Don'ts.com/faq/FA | | | | | | Q22v1 Test(s) performed | | | | | | at: [facility] | | | | | | [facility]FECTI[facility] | | | | | | [place] [address], | | | | | | [place], [place] | | | | | | [address] [facility] | | | | | | [facility] | | | | | | [facility] [address] | | | | | | [place] #[id number] | | | | + + + + + + + + | Specimen | + + | Blood | + + + + + + + | Performing | Address | City/State/Zipcode | Phone Number | | Organization | | | | + + + + + | REFERENCE LAB | [address] | [place], [place] | | | [facility] - | | [address] | | | [place] | | | | + + + + + CBC with Differential (09/23/2019 3:58 PM PST)Only the most recent of 3 results within the time period is included. + + + + + + | Component | Value | Ref Range | Performed | Pathologist | | | | | At | Signature | + + + + + + | WBC | 10.3 | 4.3 - 10.4 K/uL | [place] | | | | | | [facility] | | | | | | LAB[facility]ATORY | | + + + + + + | RBC | 4.46 | 4.12 - 5.30 | [place] | | | | | M/uL | [facility] | | [facility] | | | | | | LABORATORY | | + + + + + + | Hemoglobin | 12.2 (L) | 12.4 - 15.7 | [place] | | | | | g/dL | [facility] | | [facility] | | | | | | LABORATORY | | + + + + + + | Hematocrit | 38.3 | 37.7 - 47.0 % | [place] | | | | | | [facility] | | | | [facility] | | | | | | LABORATORY | | + + + + + + | MCV | 85.9 | 82.0 - 97.0 fL | [place] | | | | | | [facility] | | | | [facility] | | | | | | LABORATORY | | + + + + + + | MCH | 27.4 | 27.1 - 32.3 pg | [place] | | | | | | [facility] | | [facility] | | | | | | LABORATORY | | + + + + + + | MCHC | 31.9 (L) | 32.0 - 36.9 | [place] | | | | | g/dL | [facility] | | [facility] | | | | | | LABORATORY | | + + + + + + | RDW-CV | 15.4 | 0.0 - 17.0 % | [place] | | | | | | [facility] | | | | [facility] | | | | | | LABORATORY | | + + + + + + | Platelet | 283 | 150 - 450 K/uL | [place] | | | Count | | | [facility] | | | | | | [facility] | | | | | | LABORATORY | | + + + + + + | MPV | 11.9 | 9.4 - 12.3 fL | [place] | | | | | | [facility] | | | | [facility] | | | | | | LABORATORY | | + + + + + + | % | 62.8 | 42.0 - 76.0 % | [place] | | | Neutrophils | | | [facility] | | | | | | [facility] | | | | | | LABORATORY | | + + + + + + | % | 30.0 | 20.0 - 40.0 % | [place] | | | Lymphocytes | | | [facility] | | | | [facility] | | | | | | LABORATORY | | + + + + + + | % Monocytes | 4.9 | 3.0 - 13.0 % | [place] | | | | | | [facility] | | | | [facility] | | | | | | LABORATORY | | + + + + + + | % | 1.3 | 0.0 - 7.0 % | [place] | | | Eosinophils | | | [facility] | | | | | | [facility] | | | | | | LABORATORY | | + + + + + + | % Basophils | 0.6 | 0.0 - 2.0 % | [place] [...] + + + + | Absolute | 6.48 | 2.50 - 8.50 | [place] | | | Neutrophils | | K/uL | [facility] | [facility] | | | | | | LABORATORY | | + + + + + + | Absolute | 3.10 | 1.00 - 3.80 | [place] | | | Lymphocytes | | K/uL | [facility] | [facility] | | | | | | LABORATORY | | + + + + + + | Absolute | 0.51 | 0.00 - 0.80 | [place] | | | Monocytes | | K/uL | [facility] | | | | | | [facility] | | | | | | LABORATORY | | + + + + + + | Absolute | 0.13 | 0.00 - 0.70 | [place] | [...] + + | [place] [facility] | [address] | [place] [address] | [phone] | | HOSPITAL LABORATORY | | | | + + + + + Lipase (09/23/2019 3:58 PM PST)Only the most recent of 2 results within the time period is included. + +-------+ + + + | Component [...] + + | [place] [facility] | [address] | [place] [address] | [phone] | | HOSPITAL LAB[facility]ORY | | | | + + + + + Comprehensive Metabolic Panel (09/23/2019 3:58 PM PST)Only the most recent of 2 results wi thin the time period is included. + + [...] | mL/min/1.73m2 | [facility] | | | MONEGASQUE | RATE,ESTIMATED | | HOSPITAL | | | | mL/min/1.93j6Cmwz than | | LABORATORY | | | [...] + + | [place] [facility] | [address] | [place] [address] | [phone] | | HOSPITAL LABORATORY | | | | + + + + + MRI Foot Right wo Contrast (09/20/2019 5:53 PM PST) + + | Specimen | + + | | + + + + + | Impressions | Performed At | + + + | 1. Evidence of prior surgery at the medial navicula. Note from | [facility] | | Jeffrey Gandhi MD, [facility], 09/19/19 describes | | | history of Kidner procedure performed Archer2015. The findings on | | | the [...] navicula. Note from Jeffrey Gandhi MD, [facility], 09/19/19 | | describes history of Kidner procedure performed Archer2015. The findings on the current | | [...] medial navicula. Note from Jeffrey Gandhi MD, [facility], 09/19/19 describes history of Kidner procedure performed Archer 2015. The findings on the current study [...] + + Iron and Iron Binding Capacity (09/17/2019 5:03 [...] + + | [place] [facility] | [address] | [place] [address] | [phone] | | HOSPITAL LABORATORY | | | [...] + + | [place] [facility] | [address] | [place] [address] | [phone] | | HOSPITAL LAB[facility]ATORY | | | | + + + + + US Guided Thyroid FNA (09/02/2019 8:55 AM [...] + | Yoni Grullon Results In - 09/02/2019 9:29 AM PST [...] PHYSICIAN: Chris Bedolla M.D. PATIENT NAME: | [facility] | | ZENY SUH GENDER: Bre : 1990 | [facility] | | SPECIMEN(S): [...] | | contents and follicular cells seen (Clever category 2) (see | | | Description) [...] interpretation was performed by | | | [facility], [address] | | | [place] [address] (Doll Wigs Hackler: Desi Perez MD; CLIA# | | | [id number]). Technical preparation was performed by [facility] | | | [facility], [address] [place] [address] | | | (Doll Wigs Hackler: Carlos Eduardo Mayorga D.O.; CLIA#: [id number]). | | | Diagnostician: Chasity HACKETT ([facility]) [employer] | | | Diagnostician: Erick Orr MD Pathologist Electronically | | | Signed 09/06/2019 | | + + + + +---------+ + + | Performing | Address | City/State/[facility] | Phone Number | | Organization | | | | + +---------+ + + | [facility] | | | | | [facility] | | | | + +---------+ + + Culture, Urine (08/22/2019 7:52 PM PST) + [...] + + | [place] [facility] | [address] | [place] [address] | [phone] | | HOSPITAL LAB[facility]ATORY | | | [...] + + | [place] [facility] | [address] | [place] [address] | [phone] | | HOSPITAL LAB[facility]ORY | | | | + + + + + Immunoglobulin G Subclasses (08/19/2019 4:11 PM PST) + + + + + + | Component | Value | Ref Range | Performed | Pathologist | | | | | At | Signature | + + + + + + | IgG | 452 | 382 - 929 mg/dL | REFERENCE | | | Subclass 1 | | | [facility] | | | | | | DIAGNOSTICS | | | | | | - [place] | | | | | | STEEN | | + + + + + + | IgG | 325 | 241 - 700 mg/dL | REFERENCE | | | Subclass 2 | | | [facility] | | | | | | DIAGNOSTICS | | | | | | - [place] | | | | | | STEEN | | + + + + + + | IgG | 19 (L) | 22 - 178 mg/dL | REFERENCE | | | Subclass 3 | | | [facility] | | | | | | DIAGNOSTICS | | | | | | - [place] | | | | | | STEEN | | + + + + + + | IgG | 20.2 | 4.0 - 86.0 | REFERENCE | | | Subclass 4 | | mg/dL | [facility] | | | | | | DIAGNOSTICS | | | | | | - [place] | | | | | | STEEN | | + + + + + + | Immunoglobu | 759Comment: @ Test | 600 - 1640 | REFERENCE | | | myron IgG | Performed By: [facility] | mg/dL | [facility] | | | | [facility] [place] | | DIAGNOSTICS | | | | Manasa Bethea | | - [place] | | | | Catrina So, Ph.D., | | [place] | | | | Career Services Officer | | | | | | [address] | | | | | | [place] [address] | | | | | | LISETTEIA #[id number] | | | | + + + + + + + + | Specimen | + + | Blood | + + + + + + + | Performing | Address | City/State/Zipcode | Phone Number | | Organization | | | | + + + + + | REFERENCE LAB | [address] | [place], [place] | | | [facility] - | | [address] | | | [place] | | | | + + + + + Immunoglobulin, Panel, IgG and IgM and IgA (08/19/2019 4:11 PM PST) + + + + + + | Component | Value | Ref Range | Performed | Pathologist | | | | | At | Signature | + + + + + + | Immunoglobu | 174 | 47 - 310 mg/dL | REFERENCE | | | myron IgA | | | [facility] | | | | | | DIAGNOSTICS | | | | | | - [place] | | | | | | STEEN | | + + + + + + | Immunoglobu | 789 | 600 - 1640 | REFERENCE | | | myron IgG | | mg/dL | [facility] | | | | | | DIAGNOSTICS | | | | | | - [place] | | | | | | STEEN | | + + + + + + | Immunoglobu | 162Comment: @ Test | 50 - 300 mg/dL | REFERENCE | | | myron IgM | Performed By: [facility] | | [facility] | | | | [facility] | | JUN | | | | Manasa Bethea | | - VJ | | | | Catrina So, Ph.D., | | [place] | | | | Career Services Officer | | | | | | [address] [facility] | | | | | | [place] [address] | | | | | | [place] #[id number] | | | | + + + + + + + + | Specimen | + + | Blood | + + + + + + + | Performing | Address | City/State/Zipcode | Phone Number | | Organization | | | | + + + + + | REFERENCE LAB | [address] | [place], [place] | | | [facility] - | | [address] | | | [facility] | | | | + + + + + Immunoglobulin E (08/19/2019 4:11 PM PST) + + + + + + | Component | Value | Ref Range | Performed | Pathologist | | | | | At | Signature | + + + + + + | IGE | 12Comment: @ Test | <115 kU/L | REFERENCE | | | | Performed By: [facility] | | [facility] | | | | [facility]ostics [facility] | | DIAGNOSTICS | | | | Manasa Bethea | | - VJ | | | | Catrina So, Ph.D., | | [place] | | | | Career Services Officer | | | | | | [address] | | | | | | [place] [address] | | | | | | RAM[place] #[id number] | | | | + + + + + + + + | Specimen | + + | Blood | + + + + + + + | Performing | Address | City/State/Zipcode | Phone Number | | Organization | | | | + + + + + | REFERENCE LAB | [address] | [place], [place] | | | [facility] - | | [address] | | | [place] [facility] | | | | + + + + + EMG Study- Upper Extremity (08/17/2019 9:45 AM [...] | radiculopathy | | + + + TSH (07/24/2019 8:39 AM PDT) + +-------+ [...] [facility] | [address] | [place] [address] | [phone] | | [facility] | | | | | [facility] | | | | + + + + + XR Foot Right 3 + Vw (07/23/2019 [...] | + +---------+ + + XR Ankle Right 3 + Vw (07/17/2019 [...] | | | + +---------+ + + from Last 3 Months Insurance [...] + +--------+ +--------+ + +--------+ | [employer] | SAIF | [id number] | | [phone] | Indemn | | | WC | | 019-Pr | 5 | | ity | | | | | esent | | | | + +--------+ +--------+ + +--------+ | MODA | MODA | [id number] | 01/31/20 | [phone] | [address] | PPO | | | HEALTH | | 18-Pre | 9 | [phone] | | | | | | sent | | [place], | | | | [place] | | | | [place] [address] | | | | [place] | | | | | | + +--------+ +--------+ + +--------+ | [employer] | SAIF | [id number] | | [phone] | | Indemn | | | WC | | 018-Pr | 5 | | ity | | | | | esent | | | | + +--------+ +--------+ + +--------+ | [employer] | SAIF | [id number] | | [phone] | | PPO | | | MAJORI | | 018-Pr | 5 | | | | | S MCO | | esent | | | | + +--------+ +--------+ + +--------+ | [employer] | SAIF | [id number] | | [phone] | | Indemn | | | WC | | 018-Pr | 5 | | ity | | | | | esent | | | | + +--------+ +--------+ + +--------+ | MODA | MODA | [id number] | 10/02/19 | [phone] | [address] | PPO | | | HEALTH | | 18-Pre | 9 | [phone] | | | | | | sent | | [place], | | | | [place] | | | | [place] [address] | | | | [place] | | [...] | Self | [birth year] | [address] | | | al/Fam | | 1989 | [phone] | [place] | | | jayna | | | 6 (Home) | [address] | | | | | | [phone] | | | | | | | 7 (Work) | | + +--------+ +--------+ + + | Zeny Suh | Person | Self | [birth year] | [address] | | | al/Fam | | 1989 | [phone] | [place], [place] | | | jayna | | | 6 (Home) | [address] | | | | | | [phone] | | | | | | | 7 (Work) | | + +--------+ +--------+ + + | Zeny Suh | Person | Self | [birth year] | [address] | | | al/Fam | | 1989 | [phone] | [place] | | | jayna | | | 6 (Home) | [address] | + +--------+ +--------+ + + | Zeny Suh | Worker | Self | [birth year] | [address] | | | s Comp | | 1989 | [phone] | [place], [place] | | | | | | 6 (Home) | [address] | | | | | | [phone] | | | | | | | 7 (Work) | | + +--------+ +--------+ + + | IvetteZeny prince | Worker | Self | [birth year] | [address] | | | s Comp | | 1989 | [phone] | [place] | | | | | | 6 (Home) | [address] | | | | | | [phone] | | | | | | | 7 (Work) | | + +--------+ +--------+ + + Advance Directives + + + + + | Type | Date Recorded | Patient | Explanation | | | | Weight Caller | | + + + + + | Power of | | | | | Radio Electronics Technician | | | | + + + + + | Advance | 09/09/2019 1:11 | | | | Directive | PM | | | + + + + [...]
--- OUTSIDE RECORDS SUMMARY | ~2019-09-30 | XMS | Encounter Summary ---
Demographics + + + | Address | [address] | | | [place] [address] | + + + | Home Phone [...] Team Providers + +------+ + | Care Highway Design Engineer Name | Role | Phone [...] | | | of left | [place] [address] | [place] [address] | | | | | ankle, | Phone: | Phone: | | | | | initial | [phone] | [phone] | | | | | encounter | Fax: | Fax: | | | | | Procedures | [phone] | [phone] | | | | | PT EVAL [...] [address] | [place] [address] | ligament of left | | | | [place], [place] | [phone] | ankle, initial | | | | [address] | | encounter | | | | [phone] | Nick Barrios I, PT | | [...] be different hannah tan the original. [facility] [address] [place] [address] Physical Therapy Daily Treatment Note Date: 07/10/2018 [...] been noticing "popping" sounds when performing ankle zuni exercises at home. Sh e felt fine [...] | | | | | [place] [address] | | | | | | [phone] | | | | | | | | +--------+ + + + + | 10/30/ | Office | Primary Care | Erika Ernst, | | | 2019 | Visit | | DO [address] | | | | | | [place] [address] | | | | | | [phone] | | | | | | | [...] [place] | | | | | | [address] | | | | | | [phone] | | | | | | | | +--------+ + + + + | 02/09/ | Office | Neurology | Dhara, | | | 2019 | Visit | | [address]WAINE Ross [address] | | | [address] [place], | | | | | | [place] [address] | | | | | | [phone] | | | | | | | | +--------+ + + + + documented as of this encounter Visit Diagnoses + + | Diagnosis | + + | Sprain of calcaneofibular ligament of left ankle, initial encounter | + + documented in this encounter
--- OUTSIDE RECORDS SUMMARY | ~2019-09-30 | XMS | Encounter Summary ---
Demographics + + + | Address | [address] | | | [place] [address] | + + + | Home Phone [...] Team Providers + +------+ + | Care Surgical Supply Assistant Name | Role | Phone | [...] | | | | Procedures | [place] [address] | [place], [place] | | | | | [place] | Phone: | [address] | | | | | | [phone] | Phone: | | | | | | Fax: | [phone] | | | | | | [phone] | Fax: | | | | | | | [phone] | + + + + + + [...] | | | | [place], [place] | [address] | | | | | [address] | [phone] | | | | | [phone] | | | +--------+---------+ + + + [...] Clinic Note For: Andrea Suh 29 y.o. [id number] On 08/01/2019, Andrea Suh was seen by [...] ultrasound-guided fine-needle aspiration and I will be karal ng her with the results. CLINIC PROCEDURE [...] | | | | | [place] [address] | | | | | | [phone] | | | | | | | | +--------+ + + + + | 10/30/ | Office | Primary Care | Erika Ernst, | | | 2019 | Visit | | DO [address] | | | | | | [place] [address] | | | | | | [phone] | | | | | | | [...] [place] | | | | | | [address] | | | | | | [phone] | | | | | | | | +--------+ + + + + | 02/09/ | Office | Neurology | Dhara, | | | 2020 | Visit | | DWAINE [address] [place], | | | | | | [place] [address] | | | | | | [phone] | | | | | | | [...]
--- OUTSIDE RECORDS SUMMARY | ~2019-09-30 | XMS | Encounter Summary ---
Demographics + + + | Address | [address] | | | [place] [address] | + + + | Home Phone [...] Providers + +------+ + | Care Chef German Name | Role | Phone | + [...] | [address] [place] | [place] [address] | | | | | [place], [place] | [phone] | | | | | [address] | | | | | | [phone] | | | +--------+ + + + [...] | 04/12/20 | | | (VITAMIN D3) [id number] | mouth Once a week | tablet [...] | | | | | [place] [address] | | | | | | [phone] | | | | | | | | +--------+ + + + + | 10/30/ | Office | Primary Care | Erika Ernst, | | | 2019 | Visit | | DO [address] | | | | | | [place] [address] | | | | | | [phone] | | | | | | | [...] [place] | | | | | | [address] | | | | | | [phone] | | | | | | | | +--------+ + + + + | 02/09/ | Office | Neurology | Dhara, | | | 2019 | Visit | | DWAINE Ross [address] [place], | | | | | | [place] [address] | | | | | | [phone] | | | | | | | [...]
--- OUTSIDE RECORDS SUMMARY | ~2019-09-30 | XMS | Encounter Summary ---
Demographics + + + | Address | [address] | | | [place] [address] | + + + | Home Phone [...] Team Providers + +------+ + | Care Nutritional Chemist Name | Role | Phone | [...] Essential | | 2018 | Visit | [facility] | DO [address] | hypertension | | | | [facility] | [place] [address] | (Primary Dx); Acute | | | | [address] [place], | [phone] | recurrent frontal | | | | [place] [address] | | sinusitis | | | | [phone] | | | +--------+---------+ + + + [...] to day. 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 and [...] | | | | | [place] [address] | | | | | | [phone] | | | | | | | | +--------+ + + + + | 10/30/ | Office | Primary Care | Erika Ernst, | | | 2019 | Visit | | DO [address] | | | | | | [place] [address] | | | | | | [phone] | | | | | | | [...] [place] | | | | | | [address] | | | | | | [phone] | | | | | | | | +--------+ + + + + | 02/09/ | Office | Neurology | Dhara, | | | 2019 | Visit | | [address] | | | | | | [address] [place], | | | | | | [place] [address] | | | | | | [phone] | | | | | | | | +--------+ + + + + documented as of this encounter Visit Diagnoses + + | Diagnosis | + + | Essential hypertension - Primary Unspecified essential hypertension | + + | Acute recurrent frontal sinusitis Acute frontal sinusitis | + + documented in this encounter
--- OUTSIDE RECORDS SUMMARY | ~2019-09-30 | XMS | Encounter Summary ---
Demographics + + + | Address | [address] | | | [place] [address] | + + + | Home Phone [...] Providers + +------+ + | Care Car Installations Supervisor Name | Role | Phone | [...] | | | of left | [place] [address] | [place] [address] | | | | | ankle, | Phone: | Phone: | | | | | initial | [phone] | [phone] | | | | | encounter | Fax: | Fax: | | | | | Procedures | [phone] | [phone] | | | | | PT EVAL [...] [address] | [place] [address] | encounter (Primary | | | | [place], [place] | [phone] | Dx) | | | | [address] | | | | | | [phone] | Nick Barrios I, PT | | [...] 4/10 today 08/10/18 Treatment Plan/Interventions PT EvaluationPT Re-Lmioxxizmt58099 - Therapeutic Zcnfznfb23861 - Neuromuscular Reeducation9 7116 - Gait Lfewjxbz14008 - Therapeutic Biulbrsgtp08614 - Manual Vldztsn49051 - Self Care/Ho me Ubqmibrvoh67634 - Group Therapeutic Hafhbqovpd65126 - Aquatic Therapy/Shlcchpht84192 - Io eaosthdkvpk44282 - TENS Application/Snnqumrbozp88638 - Electrical Stimulation, Exbxentdtw153 35 - Ultrasound Electronically signed by: Nick Barrios PT, 08/10/2018 17:12 Patient Name: Andrea Suh/: 1990/ osephNick I PT - 08/10/2018 5:10 PM PST [facility] PT [address] [place] [address] Physical Therapy Daily Treatment Note Date: 08/10/2018 [...] and B genuvalgum during ambulation Level of [place]ford: independent Gait Deviations: stride width increased, other [...] in favor of SL heel raise with TEMPERATURE REGULATOR PYROMETER. ONGOING: SLS on even surface 3x30 seconds [...] Rhomberg stance on airex eye s closed TEMPERATURE REGULATOR PYROMETER as needed 2x1 minute // Lateral gait [...] | | | | | [place] [address] | | | | | | [phone] | | | | | | | | +--------+ + + + + | 10/30/ | Office | Primary Care | Erika Ernst, | | | 2019 | Visit | | DO [address] | | | | | | [place] [address] | | | | | | [phone] | | | | | | | [...] [place] | | | | | | [address] | | | | | | [phone] | | | | | | | | +--------+ + + + + | 02/09/ | Office | Neurology | Dhara, | | | 2020 | Visit | | [address] | | | | | [address] [place], | | | | | | [place] [address] | | | | | | [phone] | | | | | | | | +--------+ + + + + documented as of this encounter Visit Diagnoses + + | Diagnosis | + + | Sprain of left ankle, subsequent encounter - Primary | + + documented in this encounter
--- OUTSIDE RECORDS SUMMARY | ~2019-09-30 | XMS | Encounter Summary ---
Demographics + + + | Address | [address] | | | [place] [address] | + + + | Home Phone [...] Team Providers + +------+ + | Care Cell Operator Name | Role | Phone | [...] | [address] | [place] [address] | | | | | [place], [place] | [phone] | | | | | [address] | | | | | | [phone] | | | +--------+ + + + [...] | 04/12/20 | | | (VITAMIN D3) 34141 | mouth Once a week | tablet [...] | | | | | [place] [address] | | | | | | [phone] | | | | | | | | +--------+ + + + + | 10/30/ | Office | Primary Care | Erika Ernst, | | | 2019 | Visit | | DO [address] | | | | | | [place] [address] | | | | | | [phone] | | | | | | | [...] [place] | | | | | | [address] | | | | | | [phone] | | | | | | | | +--------+ + + + + | 02/09/ | Office | Neurology | Dhara, | | | 2019 | Visit | | [address] | | | | | | [address] [place], | | | | | | [place] [address] | | | | | | [phone] | | | | | | | [...]
--- OUTSIDE RECORDS SUMMARY | ~2019-09-30 | XMS | Encounter Summary ---
Demographics + + + | Address | [address] | | | [place] [address] | + + + | Home Phone [...] Providers + +------+ + | Care Risk Manager Name | Role | Phone [...] | [facility] [address] | [place] [address] | | | | | [address] [place], | [phone] | | | | | [place] [address] | | | | | | [phone] | | | +--------+ + + + [...] | | | | | [place] [address] | | | | | | [phone] | | | | | | | | +--------+ + + + + | 10/30/ | Office | Primary Care | Erika Ernst, | | | 2019 | Visit | | DO [address] [place] [address] | | | | | | [place] [address] | | | | | | [phone] | | | | | | | [...] [place] | | | | | | [address] | | | | | | [phone] | | | | | | | | +--------+ + + + + | 02/09/ | Office | Neurology | Dhara, | | | 2019 | Visit | | [address] | | | | | [address] [place], | | | | | | [place] [address] | | | | | | [phone] | | | | | | | | +--------+ + + + + documented as of this encounter Visit Diagnoses Not on filedocumented in this encounter"
--- OUTSIDE RECORDS SUMMARY | ~2019-09-30 | XMS | Encounter Summary ---
Demographics + + + | Address | [address] | | | [place] [address] | + + + | Home Phone [...] + +------+ + | Care Director Of Digital Technology Name | Role | Phone | [...] | | | | [place] | [address] | | | | | [address] | [phone] | | | | | [phone] | | | +--------+ + + + [...] | | | | | [place] [address] | | | | | | [phone] | | | | | | | | +--------+ + + + + | 10/30/ | Office | Primary Care | Erika Ernst, | | | 2019 | Visit | | DO [address] | | | | | | [place] [address] | | | | | | [phone] | | | | | | | [...] [place] | | | | | | [address] | | | | | | [phone] | | | | | | | | +--------+ + + + + | 02/09/ | Office | Neurology | Dhara, | | | 2019 | Visit | | [address]WA[address] | | | | | [address] [place], | | | | | | [place] [address] | | | | | | [phone] | | | | | | | [...] thoracic | | | scoliosis. JOB #: [id number] Read By: DAYANA | | | Oliver [...] | | biphasic thoracic scoliosis. JOB #: [id number] Read By: DAYANA COON, | | Released By: DAYANA COON MDDate: 06/02/2016 18:28 | | | |HISTORY: | |Back pain. | | | |FINDINGS: | |The rib-bearing thoracic vertebral bodies are normally aligned. There is a mild biphasic t horacic scoliosis. No vertebral body anomaly is identified. Disk heights are preserved. N o rib fracture. | | | |IMPRESSION: | |Mild biphasic thoracic scoliosis. | | | | | |JOB #: [id number] | | | |Read By: DAYANA COON MD | | | |Released By: DAYANA COON MD | |Date: 06/02/2016 18:28 | | | | | + + documented in this encounter Visit Diagnoses Not on filedocumented in this encounter"
--- OUTSIDE RECORDS SUMMARY | ~2019-09-30 | XMS | Encounter Summary ---
Demographics + + + | Address | [address] | | | [place] [address] | + + + | Home Phone [...] Team Providers + +------+ + | Care Memorial Adviser Name | Role | Phone | + [...] | | | | | | | MT REPR | | | | | | | FOREARM | | | | | | | TEND/MUSC,EX | | | | | | | TEN,PRIM,EA | | | | | | | MT REPR | | | | | | | FOREARM | | | | | | | TEND/MUSC,EX | | | | | | | TEN,SECOND | | | | | | | MT REPR | | | | | | [...] | | [place] | [place] [address] | | | | | [address] | [phone] | | | | | [phone] | | | +--------+---------+ + + + [...] number, which will transfer you to the [facility] service at the hospital and ask for the occupational health nurse manager orthopedic provider. Be sure to mention t hat you've had surgery recently. AttachmentsThe following attachments cannot be sent through Care Everywhere.After Your Surg matt: Discharge Instructions (Japanese)documented in this encounter Medications at Time of [...] | 02/29/20 | | | (VITAMIN D3) 12207 | mouth Once a week | tablet [...] | | | | | [place] [address] | | | | | | [phone] | | | | | | | | +--------+ + + + + | 10/30/ | Office | Primary Care | Erika Ernst, | | | 2019 | Visit | | DO [address] | | | | | | [place] [address] | | | | | | [phone] | | | | | | | [...] [place] | | | | | | [address] | | | | | | [phone] | | | | | | | | +--------+ + + + + | 02/09/ | Office | Neurology | Dhara, | | | 2019 | Visit | | [address]WA[address] Ross [address] | | | | [address] [place], | | | | | | [place] [address] | | | | | | [phone] | | | | | | | [...] + + | [place] [facility] | [address] | [place] [address] | [phone] | | [facility] | | | [...]
--- OUTSIDE RECORDS SUMMARY | ~2019-09-30 | XMS | Encounter Summary ---
Demographics + + + | Address | [address] | | | [place] [address] | + + + | Home Phone [...] Providers + +------+ + | Care Home Health Lpn Name | Role | Phone | + [...] | | | | [place] | [address] | | | | | [address] | [phone] | | | | | [phone] | | | +--------+ + + + [...] | | | | | [place] [address] | | | | | | [phone] | | | | | | | | +--------+ + + + + | 10/30/ | Office | Primary Care | Erika Ernst, | | | 2019 | Visit | | DO [address] | | | | | | [place] [address] | | | | | | [phone] | | | | | | | [...] [place] | | | | | | [address] | | | | | | [phone] | | | | | | | | +--------+ + + + + | 02/09/ | Office | Neurology | Dhara, | | | 2019 | Visit | | [address]WA[address] | | | | [address] [place], | | | | | | [place] [address] | | | | | | [phone] | | | | | | | [...] thoracic | | | scoliosis. JOB #: [id number] Read By: DAYANA | | | Oliver [...] | | biphasic thoracic scoliosis. JOB #: [id number] Read By: DAYANA COON, | | Released [...] | | | | | |JOB #: [id number] | | | |Read By: DAYANA COON MD | | | |Released By: DAYANA COON MD | |Date: 06/02/2016 18:28 | | | | | + + documented in this encounter Visit Diagnoses Not on filedocumented in this encounter"
--- OUTSIDE RECORDS SUMMARY | ~2019-09-30 | XMS | Encounter Summary ---
Demographics + + + | Address | [address] | | | [place] [address] | + + + | Home Phone [...] Providers + +------+ + | Care Apple Press Operator Name | Role | Phone [...] [address] [place] | [place] [address] | | | | | [place], [place] | [phone] | | | | | [address] | | | | | | [phone] | | | +--------+ + + + [...] | | | | | [place] [address] | | | | | | [phone] | | | | | | | | +--------+ + + + + | 10/30/ | Office | Primary Care | Erika Ernst, | | | 2019 | Visit | | DO [address] | | | | | | [place] [address] | | | | | | [phone] | | | | | | | [...] [place] | | | | | | [address] | | | | | | [phone] | | | | | | | | +--------+ + + + + | 02/09/ | Office | Neurology | Dhara, | | | 2019 | Visit | | Cody, BI DATA ARCHITECT [address] | | | | | | [address]TH [facility], | | | | | | [place] [address] | | | | | | [phone] | | | | | | | [...]
--- OUTSIDE RECORDS SUMMARY | ~2019-09-30 | XMS | Encounter Summary ---
Demographics + + + | Address | [address] | | | [place] [address] | + + + | Home Phone [...] Providers + +------+ + | Care Assistant Press Operator Name | Role | Phone [...] | | | | encounter | [place] [address] | [place], | | | | | | Phone: | [place] | | | | | | [phone] | [address] | | | | | | Fax: | Phone: | | | | | | [phone] | [phone] | | | | | | | Fax: | | | | | | | [phone] | +--------+ + + + + + [...] | [facility] [address] | [place] [address] | encounter (Primary | | | | [address] [place], | [phone] | Dx) | | | | [place] [address] | | | | | | [phone] | | | +--------+ + + + [...] 2018 | Visit | | DO [address] [place] [address] | | | | | | [place] [address] | | | | | | [phone] | | | | | | | | +--------+ + + + + | 10/30/ | Office | Primary Care | Erika Ernst, | | | 2019 | Visit | | DO [address] | | | | | | [place] [address] | | | | | | [phone] | | | | | | | [...] [place] | | | | | | [address] | | | | | | [phone] | | | | | | | | +--------+ + + + + | 02/09/ | Office | Neurology | Dhara, | | | 2019 | Visit | | DWAINE Ross [address] | | | | [address] [place], | | | | | | [place] [address] | | | | | | [phone] | | | | | | | [...]
--- OUTSIDE RECORDS SUMMARY | ~2019-09-30 | XMS | Encounter Summary ---
Demographics + + + | Address | [address] | | | [place] [address] | + + + | Home Phone [...] Providers + +------+ + | Care Supervisor Pre Wave Name | Role | Phone | + [...] | | [facility] [address] | [place] [place] [address] | | | | | [address] [facility], | [phone] | | | | | [place] [address] | | | | | | [phone] | | | +--------+ + + + [...] | | | | | [place] [address] | | | | | | [phone] | | | | | | | | +--------+ + + + + | 10/30/ | Office | Primary Care | Erika Ernst, | | | 2019 | Visit | | DO [address] | | | | | | [place] [address] | | | | | | [phone] | | | | | | | [...] [place] | | | | | | [address] | | | | | | [phone] | | | | | | | | +--------+ + + + + | 02/09/ | Office | Neurology | Dhara, | | | 2020 | Visit | | DWAINE Ross [address] | | | | [address] [place], | | | | | | [place] [address] | | | | | | [phone] | | | | | | | | +--------+ + + + + documented as of this encounter Visit Diagnoses Not on filedocumented in this encounter"
--- OUTSIDE RECORDS SUMMARY | ~2019-09-30 | XMS | Encounter Summary ---
Demographics + + + | Address | [address] | | | [place] [address] | + + + | Home Phone [...] Team Providers + +------+ + | Care Lamination Spinner Name | Role | Phone | [...] | [place], [place] | [place] [address] | | | | | [address] | [phone] | | | | | [phone] | | | +--------+ + + + [...] | | | | | [place] [address] | | | | | | [phone] | | | | | | | | +--------+ + + + + | 10/30/ | Office | Primary Care | Erika Ernst, | | | 2019 | Visit | | DO [address] [facility] [address] [facility] | | | | | | [place] [address] | | | | | | [phone] | | | | | | | [...] [place] | | | | | | [address] | | | | | | [phone] | | | | | | | | +--------+ + + + + | 02/09/ | Office | Neurology | Dhara, | | | 2019 | Visit | | [address]WA[address] Ross [address] | | | | | | [address] [place], | | | | | | [place] [address] | | | | | | [phone] | | | | | | | | +--------+ + + + + documented as of this encounter Visit Diagnoses Not on filedocumented in this encounter"
--- OUTSIDE RECORDS SUMMARY | ~2019-09-30 | XMS | Encounter Summary ---
Demographics + + + | Address | [address] | | | [place] [address] | + + + | Home Phone [...] Team Providers + +------+ + | Care Fitness And Wellness Manager Name | Role | Phone | + +------+ + PCP | Unavailable | + +------+ + Encounter Details +--------+ + + + + | Date | Type | Department | Care Team | Description | +--------+ + + + + | 04/11/ | Hospital | [place] [facility] | Travis Malone FNP | | | 2013 | Encounter | [facility] | [address] | | | | | [address] [place] [address] | [place], [place] | | | | | [place], [place] | [address] | | | | | [address] | [phone] | | | | | [phone] | | | +--------+ + + + [...] | | | | | [place] [address] | | | | | | [phone] | | | | | | | | +--------+ + + + + | 10/30/ | Office | Primary Care | Erika Ernst, | | | 2019 | Visit | | DO [address] [place] | | | | | | [place] [address] | | | | | | [phone] | | | | | | | [...] [place] | | | | | | [address] | | | | | | [phone] | | | | | | | | +--------+ + + + + | 02/09/ | Office | Neurology | Dhara, | | | 2020 | Visit | | [address] | | | | | [address] [place], | | | | | | [place] [address] | | | | | | [phone] | | | | | | | | +--------+ + + + + documented as of this encounter Visit Diagnoses Not on filedocumented in this encounter"
--- OUTSIDE RECORDS SUMMARY | ~2019-09-30 | XMS | Encounter Summary ---
Demographics + + + | Address | [address] | | | [place] [address] | + + + | Home Phone [...] Team Providers + +------+ + | Care Rivet Tester Name | Role | Phone | [...] | | | of left | [place] [address] | [place], [place] | | | | | ankle, | Phone: | [address] | | | | | initial | [phone] | Phone: | | | | | encounter | Fax: | [phone] | | | | | Procedures | [phone] | Fax: | | | | | [place] | | [phone] | +--------+ + + + + + [...] | [place], [place] | [place] [address] | Dx); Sprain of left | | | | [address] | [phone] | ankle, unspecified | | | | [phone] | | ligament, initial | | | [...] Age: 28 y.o. | : 1990 | [address] | Author: ABHI GRIMES DO | Date of Encounter: 06/19/2018 Chief complaint Chief Complaint Patient presents with Ankle Injury Left DOI: 05/31/18 Date of injury History of Present Illness Andrea Suh is a 28 y.o. female referral from her PCP regarding a sprained ankle. This is a workman's comp case. She states approximately 3 weeks ago she was walking in the [employer] lot when she slipped on some twigs [...] PM 90 tablet 5 Cholecalciferol (VITAMIN D3) 93956 units TABS Take 1 tablet by mouth [...] Fani Mahajan MD; Location: [facility] TONSILLECTOMY WISDOM TOOTH EXTRACTION Family [...] and their vital signs recorded by my food service assistant today, leslie s found in this chart note. Electronically signed by: Abhi Grimes DO 06/19/2018 at 15:43 Note: Part of this report was transcribed using voice recognition software. Every effort wa s made to ensure accuracy. However, inadvertent computerized surgical dressing maker errors may be pre sent. CC: [...] | | | | | [place] [address] | | | | | | [phone] | | | | | | | | +--------+ + + + + | 10/30/ | Office | Primary Care | Erika Ernst, | | | 2019 | Visit | | DO [address] [place] | | | | | | [place] [address] | | | | | | [phone] | | | | | | | [...] [place] | | | | | | [address] | | | | | | [phone] | | | | | | | | +--------+ + + + + | 02/09/ | Office | Neurology | Dhara, | | | 2019 | Visit | | DWA[address] | | | | [address] [place], | | | | | | [place] [address] | | | | | | [phone] | | | | | | | [...]
--- OUTSIDE RECORDS SUMMARY | ~2019-09-30 | XMS | Encounter Summary ---
Demographics + + + | Address | [address] | | | [place] [address] | + + + | Home Phone [...] Team Providers + +------+ + | Care Inspecting Supervisor Name | Role | Phone | + +------+ + PCP | Unavailable | + +------+ + Encounter Details +--------+ + + + + | Date | Type | Department | Care Team | Description | +--------+ + + + + | 05/12/ | Hospital | [facility] | Camille Bush | | | 2017 | Encounter | [facility] | [address] | | | | | [facility] | [address]th [facility], | | | | | 4TH [facility], | [place] [address] | | | | | [place] [address] | [phone] | | | | | [phone] | | | +--------+ + + + [...] | | | | | [place] [address] | | | | | | [phone] | | | | | | | | +--------+ + + + + | 10/30/ | Office | Primary Care | Erika Ernst, | | | 2019 | Visit | | DO [address] [place] | | | | | | [place] [address] | | | | | | [phone] | | | | | | | [...] [place] | | | | | | [address] | | | | | | [phone] | | | | | | | | +--------+ + + + + | 02/09/ | Office | Neurology | Dhara, | | | 2020 | Visit | | [address] | | | | | [address] [place], | | | | | | [place] [address] | | | | | | [phone] | | | | | | | | +--------+ + + + + documented as of this encounter Visit Diagnoses Not on filedocumented in this encounter"
--- OUTSIDE RECORDS SUMMARY | ~2019-09-30 | XMS | Encounter Summary ---
Demographics + + + | Address | [address] | | | [place] [address] | + + + | Home Phone [...] Refill | | 2019 | | [facility] | [address] | | | | | [facility] | [facility] [place] [address] | | | | | [address] [place], | [phone] | | | | | [place] [address] | | | | | | [phone] | | | +--------+ + + + [...] | | | | | [place] [address] | | | | | | [phone] | | | | | | | | +--------+ + + + + | 10/30/ | Office | Primary Care | Erika Ernst, | | | 2019 | Visit | | DO [address] | | | | | | [place] [address] | | | | | | [phone] | | | | | | | [...] [place] | | | | | | [address] | | | | | | [phone] | | | | | | | | +--------+ + + + + | 02/09/ | Office | Neurology | Dhara, | | | 2020 | Visit | | [address] | | | | | | [address] [place], | | | | | | [place] [address] | | | | | | [phone] | | | | | | | | +--------+ + + + + documented as of this encounter Visit Diagnoses Not on filedocumented in this encounter"
--- OUTSIDE RECORDS SUMMARY | ~2019-09-30 | XMS | Encounter Summary ---
Demographics + + + | Address | [address] | | | [place] [address] | + + + | Home Phone [...] Providers + +------+ + | Care Hand Tube Bender Name | Role | Phone | + [...] | | | [place], [place] | [address] | extremity (Primary | | | | [address] | | Dx); Sprain of | | | | [phone] | | deltoid ligament of | | [...] | : 1990 | Medical Record Number:[id number] | Author: Emily Mittal DPM | Date [...] brace. Patient is scheduled to see a [facility] physician in [place] for her wrist and ankle. Allergies Latex; [...] E.C.U. Tendon; Surgeon: Inocencio Noriega MD; Location: [facility] RIGHT KIDNER PROCEDURE 01/20/2016 Surgeon: Fani Mahajan MD; Location: [facility] TENDON RELEASE TONSILLECTOMY WISDOM TOOTH EXTRACTION Family History Problem Relation Age of Onset Other (see comment) Mother gallbladder disease Hypertension Father Other (see comment) Father arrhymthmia Breast cancer Sister Cervical cancer Maternal Grandmother Heart attack Maternal Aunt [place] Social History Socioeconomic History Marital status: Single [...] and their vital signs recorded by my central supply assistant today, a s found in this chart note. Electronically signed by: Emily Mittal DPM 12/06/2018 at 9:10 Note: Part of this report was transcribed using voice recognition software. Every effort wa s made to ensure accuracy. However, inadvertent computerized lay out machine operator errors may be pre sent. [...] | | | | | [place] [address] | | | | | | [phone] | | | | | | | | +--------+ + + + + | 10/30/ | Office | Primary Care | Erika Ernst, | | | 2019 | Visit | | DO [address] [place] | | | | | | [place] [address] | | | | | | [phone] | | | | | | | [...] [place] | | | | | | [address] | | | | | | [phone] | | | | | | | | +--------+ + + + + | 02/09/ | Office | Neurology | Dhara, | | | 2019 | Visit | | DWAINE [address] [place], | | | | | | [place] [address] | | | | | | [phone] | | | | | | | [...]
--- OUTSIDE RECORDS SUMMARY | ~2019-09-30 | XMS | Encounter Summary ---
Demographics + + + | Address | [address] | | | [place] [address] | + + + | Home Phone [...] Team Providers + +------+ + | Care Rubberizing Mechanic Name | Role | Phone | [...] | | | [place], [place] | [address] | | | | | [address] | | | | | | [phone] | | | +--------+ + + + [...] | | | | | [place] [address] | | | | | | [phone] | | | | | | | | +--------+ + + + + | 10/30/ | Office | Primary Care | Erika Ernst, | | | 2019 | Visit | | DO [address] [place] | | | | | | [place] [address] | | | | | | [phone] | | | | | | | [...] [place] | | | | | | [address] | | | | | | [phone] | | | | | | | | +--------+ + + + + | 02/09/ | Office | Neurology | Dhara, | | | 2019 | Visit | | [address]WA[address] [place], | | | | | | [place] [address] | | | | | | [phone] | | | | | | | | +--------+ + + + + documented as of this encounter Visit Diagnoses Not on filedocumented in this encounter"
--- OUTSIDE RECORDS SUMMARY | ~2019-09-30 | XMS | Encounter Summary ---
Demographics + + + | Address | [address] | | | [place] [address] | + + + | Home Phone [...] Team Providers + +------+ + | Care Newsstand Vendor Name | Role | Phone | + [...] | | | 2018 | Support | [facility] | DO [address] | | | | | MEDICAL CLINIC [address] | [place] [address] | | | | | [address] [place], | [phone] | | | | | [place] [address] | | | | | | [phone] | | | +--------+ + + + [...] | | | | | [place] [address] | | | | | | [phone] | | | | | | | | +--------+ + + + + | 10/30/ | Office | Primary Care | Erika Ernst, | | | 2019 | Visit | | DO [address] | | | | | | [place] [address] | | | | | | [phone] | | | | | | | [...] [place] | | | | | | [address] | | | | | | [phone] | | | | | | | | +--------+ + + + + | 02/09/ | Office | Neurology | Dhara, | | | 2020 | Visit | | [address] | | | | | | [address] [place], | | | | | | [place] [address] | | | | | | [phone] | | | | | | | | +--------+ + + + + documented as of this encounter Visit Diagnoses Not on filedocumented in this encounter"
--- OUTSIDE RECORDS SUMMARY | ~2019-09-30 | XMS | Encounter Summary ---
Demographics + + + | Address | [address] | | | [place] [address] | + + + | Home Phone [...] Providers + +------+ + | Care Compliance Engineer Products Name | Role | Phone | + [...] Essential | | 2018 | Visit | [facility] | DO [address] | hypertension | | | | MEDICAL CLINIC [address] | [place] [address] | (Primary Dx); Acute | | | | [address] [place], | [phone] | recurrent frontal | | | | [place] [address] | | sinusitis | | | | [phone] | | | +--------+---------+ + + + [...] to day. States she was at her Icu Staff Nurse provider yesterday in the AM and BP [...] | | | | | [place] [address] | | | | | | [phone] | | | | | | | | +--------+ + + + + | 10/30/ | Office | Primary Care | Erika Ernst, | | | 2019 | Visit | | DO [address] | | | | | | [place] [address] | | | | | | [phone] | | | | | | | [...] [place] | | | | | | [address] | | | | | | [phone] | | | | | | | | +--------+ + + + + | 02/09/ | Office | Neurology | Dhara, | | | 2019 | Visit | | [address] | | | | | | [address] [place], | | | | | | [place] [address] | | | | | | [phone] | | | | | | | | +--------+ + + + + documented as of this encounter Visit Diagnoses + + | Diagnosis | + + | Essential hypertension - Primary Unspecified essential hypertension | + + | Acute recurrent frontal sinusitis Acute frontal sinusitis | + + documented in this encounter
--- OUTSIDE RECORDS SUMMARY | ~2019-09-30 | XMS | Encounter Summary ---
Demographics + + + | Address | [address] | | | [place] [address] | + + + | Home Phone [...] + +------+ + | Care Marketing Finance Specialist Name | Role | Phone | [...] | Diagnoses | [facility] | | | Services | Surgery | Sprain of | Erika A, DO | Orthopedic | | | Required | | calcaneofibu | [address] | [address] | | | | | lar ligament | [place], | [place] | | | | | of left | [place] [address] | [place], [place] | | | | | ankle, | Phone: | [phone] | | | | | initial | [phone] | Phone: | | | | | encounter | Fax: | [phone] | | | | | Procedures | [phone] | Fax: | | | | | [place] | | [phone] | +--------+ + + + + + [...] | | | of left | [place] [address] | [place] [address] | | | | | ankle, | Phone: | Phone: | | | | | initial | [phone] | [phone] | | | | | encounter | Fax: | Fax: | | | | | Procedures | [phone] | [phone] | | | | | PT EVAL [...] | MEDICAL CLINIC [address] | [place] [address] | ligament of left | | | | [address] [place], | [phone] | ankle, initial | | | | [place] [address] | | encounter (Primary | | | | [phone] | | Dx) | +--------+---------+ + + [...] daily. 30 tablet 0 Cholecalciferol (VITAMIN D3) 47467 units TABS Take 1 tablet by mouth [...] | | | | | [place] [address] | | | | | | [phone] | | | | | | | | +--------+ + + + + | 10/30/ | Office | Primary Care | Erika Ernst, | | | 2019 | Visit | | DO [address] [place] | | | | | | [place] [address] | | | | | | [phone] | | | | | | | [...] [place] | | | | | | [address] | | | | | | [phone] | | | | | | | | +--------+ + + + + | 02/09/ | Office | Neurology | Dhara, | | | 2019 | Visit | | [address] | | | | | | [address] [place], | | | | | | [place] [address] | | | | | | [phone] | | | | | | | [...]
--- OUTSIDE RECORDS SUMMARY | ~2019-09-30 | XMS | Encounter Summary ---
Demographics + + + | Address | [address] | | | [place] [address] | + + + | Home Phone [...] Team Providers + +------+ + | Care Halfway House Counselor Name | Role | Phone | [...] | | | | | | [place] [address] | | | | | | [phone] | | | +--------+ + + + [...] | | | | | [place] [address] | | | | | | [phone] | | | | | | | | +--------+ + + + + | 10/30/ | Office | Primary Care | Erika Ernst, | | | 2019 | Visit | | DO [address] | | | | | | [place] [address] | | | | | | [phone] | | | | | | | [...] [place] | | | | | | [address] | | | | | | [phone] | | | | | | | | +--------+ + + + + | 02/09/ | Office | Neurology | Dhara, | | | 2019 | Visit | | [address] | | | | | | [address]TH [place], | | | | | | [place] [address] | | | | | | [phone] | | | | | | | | +--------+ + + + + documented as of this encounter Visit Diagnoses Not on filedocumented in this encounter"
--- OUTSIDE RECORDS SUMMARY | ~2019-09-30 | XMS | Encounter Summary ---
Demographics + + + | Address | [address] | | | [place] [address] | + + + | Home Phone [...] Team Providers + +------+ + | Care Enamel Sprayer Name | Role | Phone | + +------+ + PCP | Unavailable | + +------+ + Encounter Details +--------+ + + + + | Date | Type | Department | Care Team | Description | +--------+ + + + + | 11/30/ | [facility] | Heike Rodriguez, | | | 2015 | Encounter | [facility] | STOVE MOUNTER [address] | | | | | CENTER [address] | [place] | | | | | [place] | [address] | | | | | [address] | | | | | | [phone] | | | +--------+ + + + [...] | | | | | [place] [address] | | | | | | [phone] | | | | | | | | +--------+ + + + + | 10/30/ | Office | Primary Care | Erika Ernst, | | | 2019 | Visit | | DO [address] | | | | | | [place] [address] | | | | | | [phone] | | | | | | | [...] [place] | | | | | | [address] | | | | | | [phone] | | | | | | | | +--------+ + + + + | 02/09/ | Office | Neurology | Dhara, | | | 2020 | Visit | | [address] | | | | | | [address] [place], | | | | | | [place] [address] | | | | | | [phone] | | | | | | | | +--------+ + + + + documented as of this encounter Visit Diagnoses Not on filedocumented in this encounter"
--- OUTSIDE RECORDS SUMMARY | ~2019-09-30 | XMS | Encounter Summary ---
Demographics + + + | Address | [address] | | | [place] [address] | + + + | Home Phone [...] Team Providers + +------+ + | Care Six Sigma Black Trainer Name | Role | Phone | [...] | [place], [place] | [place] [address] | | | | | [address] | [phone] | | | | | [phone] | | | +--------+ + + + [...] | | | | | [place] [address] | | | | | | [phone] | | | | | | | | +--------+ + + + + | 10/30/ | Office | Primary Care | Erika Ernst, | | | 2019 | Visit | | DO [address] | | | | | | [place] [address] | | | | | | [phone] | | | | | | | [...] [place] | | | | | | [address] | | | | | | [phone] | | | | | | | | +--------+ + + + + | 02/09/ | Office | Neurology | Dhara, | | | 2019 | Visit | | [address] | | | | | | [address]TH [place], | | | | | | [place] [address] | | | | | | [phone] | | | | | | | | +--------+ + + + + documented as of this encounter Visit Diagnoses Not on filedocumented in this encounter"
--- OUTSIDE RECORDS SUMMARY | ~2019-09-30 | XMS | Encounter Summary ---
Demographics + + + | Address | [address] | | | [place] [address] | + + + | Home Phone [...] Providers + +------+ + | Care Public Works Laborer Name | Role | Phone | [...] [address] | [address] | (Primary Dx) | | | | [address] [place] | [place], [place] | | | | | [place], [place] | [address] | | | | | [address] | [phone] | | | | | [phone] | | | +--------+ + + + [...] | | | | | [place] [address] | | | | | | [phone] | | | | | | | | +--------+ + + + + | 10/30/ | Office | Primary Care | rEika Ernst, | | | 2019 | Visit | | DO [address] [place] | | | | | | [place] [address] | | | | | | [phone] | | | | | | | [...] [place] | | | | | | [address] | | | | | | [phone] | | | | | | | | +--------+ + + + + | 02/09/ | Office | Neurology | Dhara, | | 2019 | Visit | | [address] | | | | | | [address] [place], | | | | | | [place] [address] | | | | | | [phone] | | | | | | | [...]
--- OUTSIDE RECORDS SUMMARY | ~2019-09-30 | XMS | Encounter Summary ---
Demographics + + + | Address | [address] | | | [place] [address] | + + + | Home Phone [...] | | | | severe | [place] [address] | [place] | | | | | obesity due | Phone: | [phone] | | | | | to excess | [phone] | Phone: | | | | | calories | Fax: | [phone] | | | | | without | [phone] | Fax: | | | | | serious | | [phone] | | | | | comorbidity | [...] | | | | | | | [facility] | | | | | | | THER, 1ST, | | | | | | | INDIV, EA 15 | | | | | | | MIN [facility] | | | | | | [...] | SERVICES [address] | [place] [address] | obesity (HCC); BMI | | | | DR [place] | [phone] | 50.0-59.9, adult | | | | [address] | | (HCC); Dietary | | | | [phone] | Janel Webster, | counseling and | [...] | 11/26/19 | | | (VITAMIN D3) 63627 | mouth Once a week | tablet [...] | | | | | [place] [address] | | | | | | [phone] | | | | | | | | +--------+ + + + + | 10/30/ | Office | Primary Care | Erika Ernst, | | | 2019 | Visit | | DO [address] [place] | | | | | | [place] [address] | | | | | | [phone] | | | | | | | [...] [place] | | | | | | [address] | | | | | | [phone] | | | | | | | | +--------+ + + + + | 02/09/ | Office | Neurology | Dhara, | | | 2019 | Visit | | [address] | | | | | | [address] [place], | | | | | | [place] [address] | | | | | | [phone] | | | | | | | [...]
--- OUTSIDE RECORDS SUMMARY | ~2019-09-30 | XMS | Encounter Summary ---
Demographics + + + | Address | [address] | | | [place] [address] | + + + | Home Phone [...] Providers + +------+ + | Care Advertising Director Name | Role | Phone | [...] | 09/26/ | Telephone | CHRISTIMINNIE MARTEL [facility] [address] | OksanaJeffrey Donte, | Other | | 2018 | | [place] [address] | [address] | | | | | [address] [place], [place] | [place] [address] | | | | | [address] | [phone] | | | | | [phone] | | | +--------+ + + + [...] | | | | | [place] [address] | | | | | | [phone] | | | | | | | | +--------+ + + + + | 10/30/ | Office | Primary Care | Erika Ernst, | | | 2019 | Visit | | DO [address] | | | | | | [place] [address] | | | | | | [phone] | | | | | | | [...] [place] | | | | | | [address] | | | | | | [phone] | | | | | | | | +--------+ + + + + | 02/09/ | Office | Neurology | Dhara, | | | 2020 | Visit | | [address] | | | | | | [address] [place], | | | | | | [place] [address] | | | | | | [phone] | | | | | | | | +--------+ + + + + documented as of this encounter Visit Diagnoses Not on filedocumented in this encounter"
--- OUTSIDE RECORDS SUMMARY | ~2019-09-30 | XMS | Encounter Summary ---
Demographics + + + | Address | [address] | | | [place] [address] | + + + | Home Phone [...] Providers + +------+ + | Care Welfare Eligibility Interviewer Name | Role | Phone | + [...] right | | 2019 | Visit | [facility] | DO [address] | ankle, unspecified | | | | [facility] [address] | [place] [address] | ligament, initial | | | | [address] [place], | [phone] | encounter (Primary | | | | [place] [address] | | Dx); Contusion of | | | | [phone] | Camille Bush, DWAINE | right knee, initial | | | | | [address] | encounter | | | | | [place] [address] | | | | | | [phone] | | | | | | | [...] don t get better. Date Last Reviewed: 12/31/201619996976-5270 [employer]. [address] [place] [address], [place] [address]. All [facility] ts reserved. This information is not intended [...] until the sp rain heals. Prescription or urtx-jja-xprqent pain medicines. These help reduce swelling and [...] get worse New symptoms Date Last Reviewed: 12/10/201519995857-9663 [employer]. [address] [place] [address], [place] [address]. All righ ts reserved. This information is [...] having falling last night at 10pm at [facility] floor where she slipped an d [...] - Elastic Bandages & Supports (ANKLE BRACE NACVQE-VM-PGH) MISC; 1 Units by Does not apply [...] worsen ing., With your PCP. CAITIE [email or web address] [facility] documented in this en [...] | | | | | [place] [address] | | | | | | [phone] | | | | | | | | +--------+ + + + + | 10/30/ | Office | Primary Care | Erika Ernst, | | | 2019 | Visit | | DO [address] | | | | | | [place] [address] | | | | | | [phone] | | | | | | | [...] [place] | | | | | | [address] | | | | | | [phone] | | | | | | | | +--------+ + + + + | 02/09/ | Office | Neurology | Dhara, | | | 2019 | Visit | | [address] | | | | | | [address] [place], | | | | | | [place] [address] | | | | | | [phone] | | | | | | | [...] + -------+ | Mitchel, Yoni Results In 10/27/2018 6:59 PM PST EXAMINATION:XR KNEE RIGHT [...]
--- OUTSIDE RECORDS SUMMARY | ~2019-09-30 | XMS | Encounter Summary ---
Demographics + + + | Address | [address] | | | [place] [address] | + + + | Home Phone [...] Team Providers + +------+ + | Care Driller Brake Lining Name | Role | Phone | + [...] Results | | 2018 | | [facility] | VENDING TECHNICIAN | | | | | MEDICAL CLINIC [address] | | | | | | 4TH [facility] [place], | | | | | | [place] [address] | | | | | | [phone] | | | +--------+ + + + [...] | | | | | | [place] [address] | | | | | | [phone] | | | | | | | | +--------+ + + + + | 10/30/ | Office | Primary Care | Erika Ernst, | | | 2019 | Visit | | DO [address] | | | | | | [place] [address] | | | | | | [phone] | | | | | | | [...] [place] | | | | | | [address] | | | | | | [phone] | | | | | | | | +--------+ + + + + | 02/09/ | Office | Neurology | Dhara, | | | 2019 | Visit | | [address] | | | | | | [address] [place], | | | | | | [place] [address] | | | | | | [phone] | | | | | | | | +--------+ + + + + documented as of this encounter Visit Diagnoses Not on filedocumented in this encounter"
--- OUTSIDE RECORDS SUMMARY | ~2019-09-30 | XMS | Encounter Summary ---
Demographics + + + | Address | [address] | | | [place] [address] | + + + | Home Phone [...] Providers + +------+ + | Care Hand Buffer Name | Role | Phone | + +------+ + PCP | Unavailable | + +------+ + Encounter Details +--------+ + + + + | Date | Type | Department | Care Team | Description | +--------+ + + + + | [facility]27/ | [facility] Denise Mcgregor | | | 2017 | Encounter | [facility] | G, TOP INVENTORY CONTROL EXECUTIVE [address] | | | | | MEDICAL CLINIC [address] | [place] | | | | | [address] [facility], | [address] | | | | | [place] [address] | [phone] | | | | | [phone] | | | +--------+ + + + [...] | | | | | [place] [address] | | | | | | [phone] | | | | | | | | +--------+ + + + + | 10/30/ | Office | Primary Care | Erika Ernst, | | | 2019 | Visit | | DO [address] [place] | | | | | | [place] [address] | | | | | | [phone] | | | | | | | [...] [place] | | | | | | [address] | | | | | | [phone] | | | | | | | | +--------+ + + + + | 02/09/ | Office | Neurology | Dhara, | | | 2019 | Visit | | [address] | | | | | | [address] [place], | | | | | | [place] [address] | | | | | | [phone] | | | | | | | | +--------+ + + + + documented as of this encounter Visit Diagnoses Not on filedocumented in this encounter"
--- OUTSIDE RECORDS SUMMARY | ~2019-09-30 | XMS | Encounter Summary ---
Demographics + + + | Address | [address] | | | [place] [address] | + + + | Home Phone [...] Providers + +------+ + | Care Consulting Services Manager Name | Role | Phone | + +------+ + PCP | Unavailable | + +------+ + Encounter Details +--------+ + + + + | Date | Type | Department | Care Team | Description | +--------+ + + + + | 10/11/ | [facility] | Spenser Roberts NP | | | 2014 | Encounter | [facility] | [address], | | | | | MEDICAL CLINIC [address] | [place] [address] | | | | | 4TH [facility], | [phone] | | | | | [place] [address] | | | | | | [phone] | | | +--------+ + + + [...] | | | | | [place] [address] | | | | | | [phone] | | | | | | | | +--------+ + + + + | 10/30/ | Office | Primary Care | Erika Ernst, | | | 2019 | Visit | | DO [address] [place] | | | | | | [place] [address] | | | | | | [phone] | | | | | | | [...] [place] | | | | | | [address] | | | | | | [phone] | | | | | | | | +--------+ + + + + | 02/09/ | Office | Neurology | Dhara, | | | 2020 | Visit | | [address] | | | | | | [address] [place], | | | | | | [place] [address] | | | | | | [phone] | | | | | | | | +--------+ + + + + documented as of this encounter Visit Diagnoses Not on filedocumented in this encounter"
--- OUTSIDE RECORDS SUMMARY | ~2019-09-30 | XMS | Encounter Summary ---
Demographics + + + | Address | [address] | | | [place] [address] | + + + | Home Phone [...] Providers + +------+ + | Care Crime Scene Evidence Technician Name | Role | Phone | [...] | MEDICAL CLINIC [address] | [place] [address] | | | | | [address] [place], | [phone] | | | | | [place] [address] | | | | | | [phone] | | | +--------+ + + + [...] | | | | | [place] [address] | | | | | | [phone] | | | | | | | | +--------+ + + + + | 10/30/ | Office | Primary Care | Erika Ernst, | | | 2019 | Visit | | DO [address] [place] [address] | | | | | | [place] [address] | | | | | | [phone] | | | | | | | [...] [place] | | | | | | [address] | | | | | | [phone] | | | | | | | | +--------+ + + + + | 02/09/ | Office | Neurology | Dhara, | | | 2019 | Visit | | [address] | | | | | | [address] [place], | | | | | | [place] [address] | | | | | | [phone] | | | | | | | | +--------+ + + + + documented as of this encounter Visit Diagnoses Not on filedocumented in this encounter"
--- OUTSIDE RECORDS SUMMARY | ~2019-09-30 | XMS | Encounter Summary ---
Demographics + + + | Address | [address] | | | [place] [address] | + + + | Home Phone [...] Providers + +------+ + | Care Sports Book Writer Name | Role | Phone | [...] | 2017 | | [facility] | [address] | | | | | MEDICAL CLINIC [address] | [place] [address] | | | | | [address] [place], | [phone] | | | | | [place] [address] | | | | | | [phone] | | | +--------+--------+ + + + [...] | | | | | [place] [address] | | | | | | [phone] | | | | | | | | +--------+ + + + + | 10/30/ | Office | Primary Care | Erika Ernst, | | | 2019 | Visit | | DO [address] [place] | | | | | | [place] [address] | | | | | | [phone] | | | | | | | [...] [place] | | | | | | [address] | | | | | | [phone] | | | | | | | | +--------+ + + + + | 02/09/ | Office | Neurology | Dhara, | | | 2019 | Visit | | [address] | | | | | | [address] [place], | | | | | | [place] [address] | | | | | | [phone] | | | | | | | | +--------+ + + + + documented as of this encounter Visit Diagnoses Not on filedocumented in this encounter"
--- OUTSIDE RECORDS SUMMARY | ~2019-09-30 | XMS | Encounter Summary ---
Demographics + + + | Address | [address] | | | [place] [address] | + + + | Home Phone [...] Team Providers + +------+ + | Care Cager Operator Name | Role | Phone | [...] | Results | | 2019 | | [facility] | DO [address] | | | | | MEDICAL CLINIC [address] | [place] [address] | | | | | [address] [place], | [phone] | | | | | [place] [address] | | | | | | [phone] | | | +--------+ + + + [...] | | | | | [place] [address] | | | | | | [phone] | | | | | | | | +--------+ + + + + | 10/30/ | Office | Primary Care | Erika Ernst, | | | 2019 | Visit | | DO [address] [place] | | | | | | [place] [address] | | | | | | [phone] | | | | | | | [...] [place] | | | | | | [address] | | | | | | [phone] | | | | | | | | +--------+ + + + + | 02/09/ | Office | Neurology | Dhara, | | | 2019 | Visit | | [address] | | | | | | [address] [place], | | | | | | [place] [address] | | | | | | [phone] | | | | | | | | +--------+ + + + + documented as of this encounter Visit Diagnoses Not on filedocumented in this encounter"
--- OUTSIDE RECORDS SUMMARY | ~2019-09-30 | XMS | Encounter Summary ---
Demographics + + + | Address | [address] | | | [place] [address] | + + + | Home Phone [...] Providers + +------+ + | Care Mill Tender Washing Name | Role | Phone | + [...] | | | MEDICAL CLINIC [address] | [place] [address] | | | | | [address] [place], | [phone] | | | | | [place] [address] | | | | | | [phone] | | | +--------+ + + + [...] | | | | | [place] [address] | | | | | | [phone] | | | | | | | | +--------+ + + + + | 10/30/ | Office | Primary Care | Erika Ernst, | | | 2019 | Visit | | DO [address] [place] | | | | | | [place] [address] | | | | | | [phone] | | | | | | | [...] [place] | | | | | | [address] | | | | | | [phone] | | | | | | | | +--------+ + + + + | 02/09/ | Office | Neurology | Dhara, | | | 2020 | Visit | | [address] | | | | | | [address] [place], | | | | | | [place] [address] | | | | | | [phone] | | | | | | | | +--------+ + + + + documented as of this encounter Visit Diagnoses Not on filedocumented in this encounter"
--- OUTSIDE RECORDS SUMMARY | ~2019-09-30 | XMS | Encounter Summary ---
Demographics + + + | Address | [address] | | | [place] [address] | + + + | Home Phone [...] + +------+ + | Care Sales And Operations Trainee Name | Role | Phone | [...] | [facility] | [place] [address] | | | | | [address] [place], | [phone] | | | | | [place] [address] | | | | | | [phone] | | | +--------+ + + + [...] | | | | | [place] [address] | | | | | | [phone] | | | | | | | | +--------+ + + + + | 10/30/ | Office | Primary Care | Erika Ernst, | | | 2019 | Visit | | DO [address] | | | | | | [place] [address] | | | | | | [phone] | | | | | | | [...] [place] | | | | | | [address] | | | | | | [phone] | | | | | | | | +--------+ + + + + | 02/09/ | Office | Neurology | Dhara, | | | 2020 | Visit | | [address] | | | | | [address] [place], | | | | | | [place] [address] | | | | | | [phone] | | | | | | | | +--------+ + + + + documented as of this encounter Visit Diagnoses Not on filedocumented in this encounter"
--- OUTSIDE RECORDS SUMMARY | ~2019-09-30 | XMS | Encounter Summary ---
Demographics + + + | Address | [address] | | | [place] [address] | + + + | Home Phone [...] Providers + +------+ + | Care Software Administrator Name | Role | Phone | [...] | [address] [place] | [address] [facility], | | | | | [place], [place] | [place] [address] | | | | | [address] | [phone] | | | | | [phone] | | | +--------+ + + + [...] | | | | | [place] [address] | | | | | | [phone] | | | | | | | | +--------+ + + + + | 10/30/ | Office | Primary Care | Erika Ernst, | | | 2019 | Visit | | DO [address] | | | | | | [place] [address] | | | | | | [phone] | | | | | | | [...] [place] | | | | | | [address] | | | | | | [phone] | | | | | | | | +--------+ + + + + | 02/09/ | Office | Neurology | Dhara, | | | 2019 | Visit | | [address] [place], | | | | | | [place] [address] | | | | | | [phone] | | | | | | | | +--------+ + + + + documented as of this encounter Visit Diagnoses Not on filedocumented in this encounter"
--- OUTSIDE RECORDS SUMMARY | ~2019-09-30 | XMS | Encounter Summary ---
Demographics + + + | Address | [address] | | | [place] [address] | + + + | Home Phone [...] + +------+ + | Care Health Information Tech Name | Role | Phone | [...] Medication Refill | | 2019 | | [facility] | LEARNING DEVELOPER [address] | | | | | WALK[facility]IN [facility] [address] | [place] [address] | | | | | [address] [place], | [phone] | | | | | [place] [address] | | | | | | [phone] | | | +--------+--------+ + + + [...] | | | | | [place] [address] | | | | | | [phone] | | | | | | | | +--------+ + + + + | 10/30/ | Office | Primary Care | Erika Ernst, | | | 2019 | Visit | | DO [address] | | | | | | [place] [address] | | | | | | [phone] | | | | | | | [...] [place] | | | | | | [address] | | | | | | [phone] | | | | | | | | +--------+ + + + + | 02/09/ | Office | Neurology | Dhara, | | | 2020 | Visit | | [address] | | | | | | [address] [place], | | | | | | [place] [address] | | | | | | [phone] | | | | | | | | +--------+ + + + + documented as of this encounter Visit Diagnoses Not on filedocumented in this encounter"
--- OUTSIDE RECORDS SUMMARY | ~2019-09-30 | XMS | Encounter Summary ---
Demographics + + + | Address | [address] | | | [place] [address] | + + + | Home Phone [...] Providers + +------+ + | Care International Logistics Manager Name | Role | Phone | [...] 506 | [facility] [place] [address] | Vitamin D | | | | [address] [place], | [phone] | deficiency; Thyroid | | | | [place] [address] | | disorder screening | | | | [phone] | | | +--------+ + + + [...] | | | | | [place] [address] | | | | | | [phone] | | | | | | | | +--------+ + + + + | 10/30/ | Office | Primary Care | Erika Ernst, | | | 2019 | Visit | | DO [address] | | | | | | [place] [address] | | | | | | [phone] | | | | | | | [...] [place] | | | | | | [address] | | | | | | [phone] | | | | | | | | +--------+ + + + + | 02/09/ | Office | Neurology | Dhara, | | | 2019 | Visit | | [address] | | | | | | [address] [place], | | | | | | [place] [address] | | | | | | [phone] | | | | | | | [...] + + | [place] [facility] | [address] | [place] [address] | [phone] | | [facility] | | | [...] | [address] | [place] [address] | [phone] | | [facility] | | | [...] + + | [place] [facility] | [address] | [place] [address] | [phone] | | H[facility]ITAL [facility] | | | [...] + + | [place] [facility] | [address] | [place] [address] | [phone] | | H[facility]ITAL [facility] | | | [...] + + | [place] [facility] | [address] | [place] [address] | [phone] | | [facility] | | | | | [...]
--- OUTSIDE RECORDS SUMMARY | ~2019-09-30 | XMS | Encounter Summary ---
Demographics + + + | Address | [address] | | | [place] [address] | + + + | Home Phone [...] Team Providers + +------+ + | Care Burning Supervisor Name | Role | Phone | [...] [place], [place] | | | | | [address] | [address] | | | | | [phone] | [phone] | | | | | | | [...] | 04/12/20 | | | (VITAMIN D3) 23834 | mouth Once a week | tablet [...] | | | | | [place] [address] | | | | | | [phone] | | | | | | | | +--------+ + + + + | 10/30/ | Office | Primary Care | Erika Ernst, | | | 2019 | Visit | | DO [address] | | | | | | [place] [address] | | | | | | [phone] | | | | | | | [...] [place] | | | | | | [address] | | | | | | [phone] | | | | | | | | +--------+ + + + + | 02/09/ | Office | Neurology | Dhara, | | | 2019 | Visit | | [address] | | | | | | [address] [place], | | | | | | [place] [address] | | | | | | [phone] | | | | | | | [...]
--- OUTSIDE RECORDS SUMMARY | ~2019-09-30 | XMS | Encounter Summary ---
Demographics + + + | Address | [address] | | | [place] [address] | + + + | Home Phone [...] Team Providers + +------+ + | Care Pediatric Geneticist Name | Role | Phone | + [...] | [address] [place], [place] | [place] [address] | | | | | [address] | [phone] | | | | | [phone] | | | +--------+ + + + [...] | 04/12/20 | | | (VITAMIN D3) 98281 | mouth Once a week | tablet [...] | | | | | [place] [address] | | | | | | [phone] | | | | | | | | +--------+ + + + + | 10/30/ | Office | Primary Care | Erika Ernst, | | | 2019 | Visit | | DO [address] | | | | | | [place] [address] | | | | | | [phone] | | | | | | | [...] [place] | | | | | | [address] | | | | | | [phone] | | | | | | | | +--------+ + + + + | 02/09/ | Office | Neurology | Dhara, | | | 2019 | Visit | | [address] | | | | | | [address] [place], | | | | | | [place] [address] | | | | | | [phone] | | | | | | | [...]
--- OUTSIDE RECORDS SUMMARY | ~2019-09-30 | XMS | Encounter Summary ---
Demographics + + + | Address | [address] | | | [place] [address] | + + + | Home Phone [...] Team Providers + +------+ + | Care Neurology Technologist Name | Role | Phone | [...] Results | | 2018 | | [facility] | LOCKSTITCH LINING SETTER | | | | | MEDICAL CLINIC [address] | | | | | | [address]TH [facility] [place], | | | | | | [place] [address] | | | | | | [phone] | | | +--------+ + + + [...] | | | | | | [place] [address] | | | | | | [phone] | | | | | | | | +--------+ + + + + | 10/30/ | Office | Primary Care | Erika Ernst, | | | 2019 | Visit | | DO [address] | | | | | | [place] [address] | | | | | | [phone] | | | | | | | [...] [place] | | | | | | [address] | | | | | | [phone] | | | | | | | | +--------+ + + + + | 02/09/ | Office | Neurology | Dhara, | | | 2019 | Visit | | [address] | | | | | | [address] [place], | | | | | | [place] [address] | | | | | | [phone] | | | | | | | | +--------+ + + + + documented as of this encounter Visit Diagnoses Not on filedocumented in this encounter"
--- OUTSIDE RECORDS SUMMARY | ~2019-09-30 | XMS | Encounter Summary ---
Demographics + + + | Address | [address] | | | [place] [address] | + + + | Home Phone [...] + +------+ + | Care Food And Beverage Controller Name | Role | Phone | [...] | | | | [place] | [address] | | | | | [address] | [phone] | | | | | [phone] | | | +--------+ + + + [...] | | | | | [place] [address] | | | | | | [phone] | | | | | | | | +--------+ + + + + | 10/30/ | Office | Primary Care | Erika Ernst, | | | 2019 | Visit | | DO [address] [place] | | | | | | [place] [address] | | | | | | [phone] | | | | | | | [...] [place] | | | | | | [address] | | | | | | [phone] | | | | | | | | +--------+ + + + + | 02/09/ | Office | Neurology | Dhara, | | | 2019 | Visit | | Cody, OVEREDGE MACHINE OPERATOR [address] | | | | | | 4TH [facility], | | | | | | [place] [address] | | | | | | [phone] | | | | | | | [...] definite | | acute finding identified. Job#: [id number] Read By: ANJELICA CHAMBERS MD | | [...]
--- OUTSIDE RECORDS SUMMARY | ~2019-09-30 | XMS | Encounter Summary ---
Demographics + + + | Address | [address] | | | [place] [address] | + + + | Home Phone [...] Providers + +------+ + | Care Social Media Executive Name | Role | Phone | [...] | | | MEDICAL [facility] [address] | [place] [address] | | | | | [address] [facility], | [phone] | | | | | [place] [address] | | | | | | [phone] | | | +--------+ + + + [...] | | | | | [place] [address] | | | | | | [phone] | | | | | | | | +--------+ + + + + | 10/30/ | Office | Primary Care | Erika Ernst, | | | 2019 | Visit | | DO [address] | | | | | | [place] [address] | | | | | | [phone] | | | | | | | [...] [place] | | | | | | [address] | | | | | | [phone] | | | | | | | | +--------+ + + + + | 02/09/ | Office | Neurology | Dhara, | | | 2020 | Visit | | [address] | | | | | | [address] [place], | | | | | | [place] [address] | | | | | | [phone] | | | | | | | | +--------+ + + + + documented as of this encounter Visit Diagnoses Not on filedocumented in this encounter"
--- OUTSIDE RECORDS SUMMARY | ~2019-09-30 | XMS | Encounter Summary ---
Demographics + + + | Address | [address] | | | [place] [address] | + + + | Home Phone [...] Providers + +------+ + | Care Credit Product Analyst Name | Role | Phone | [...] | | | of left | [place] [address] | [place] [address] | | | | | ankle, | Phone: | Phone: | | | | | initial | [phone] | [phone] | | | | | encounter | Fax: | Fax: | | | | | Procedures | [phone] | [phone] | | | | | PT EVAL [...] [address] [place] | [place] [address] | ligament of left | | | | [place], [place] | [phone] | ankle, initial | | | | [address] | | encounter | | | | [phone] | Nick Barrios I, PT | | [...] be different hannah tan the original. [facility] PT [address] [place] [address] Physical Therapy Daily Treatment Note Date: 07/17/2018 [...] | | | | | [place] [address] | | | | | | [phone] | | | | | | | | +--------+ + + + + | 10/30/ | Office | Primary Care | Erika Ernst, | | | 2019 | Visit | | DO [address] [place] | | | | | | [place] [address] | | | | | | [phone] | | | | | | | [...] [place] | | | | | | [address] | | | | | | [phone] | | | | | | | | +--------+ + + + + | 02/09/ | Office | Neurology | Dhara, | | | 2019 | Visit | | [address] | | | | | | 4TH [facility] [place], | | | | | | [place] [address] | | | | | | [phone] | | | | | | | | +--------+ + + + + documented as of this encounter Visit Diagnoses + + | Diagnosis | + + | Sprain of calcaneofibular ligament of left ankle, initial encounter | + + documented in this encounter
--- OUTSIDE RECORDS SUMMARY | ~2019-09-30 | XMS | Encounter Summary ---
Demographics + + + | Address | [address] | | | [place] [address] | + + + | Home Phone [...] Providers + +------+ + | Care General Neurologist Name | Role | Phone | + [...] | | | | disorder) | [place] [address] | [place] | | | | | Chronic | Phone: | 1100 | | | | | midline low | [phone] | [facility] | | | | | back pain | Fax: | 15 | | | | | without | [phone] | [place], [place] | | | | | sciatica | | [address] | | | | | Left hip | | Phone: | | | | | pain | | [phone] | | | | | | | Fax: | | | | | | | [phone] | +--------+ + + + + + [...] | MEDICAL CLINIC [address] | [place] [address] | (Primary Dx); TMJ | | | | [address] [place], | [phone] | (temporomandibular | | | | [place] [address] | | joint disorder); | | | | [phone] | | Chronic midline low | | [...] ( she wants to do this in [place]) referral for TMJ and left hip and [...] Care | Erika Ernts, | | | 2018 | Visit | | DO [address] [place] | | | | | | [place] [address] | | | | | | [phone] | | | | | | | | +--------+ + + + + | 10/30/ | Office | Primary Care | Erika Ernst, | | | 2019 | Visit | | DO [address] [place] | | | | | | [place] [address] | | | | | | [phone] | | | | | | | [...] [place] | | | | | | [address] | | | | | | [phone] | | | | | | | | +--------+ + + + + | 02/09/ | Office | Neurology | Dhara, | | | 2019 | Visit | | [address] | | | | | [address] [place], | | | | | | [place] [address] | | | | | | [phone] | | | | | | | [...] of the medial foot. Age appropriate bone insurance claims examiner al density. | | | |IMPRESSION: | |IMPRESSION: | |Soft tissue swelling. No acute osseous process is identified. | | | |Dictated by: Braydon Stoctkon | | | | | + + [...] + + | [place] [facility] | [address] | [place] [address] | [phone] | | [facility] | | | [...] | [facility] | | | | mg/dL [id number] - | | HOSPITAL | | | | 129 mg/dL Near | | REGIONAL | | | | [id number] - 159 mg/dL | | MEDICAL | | | | [id number] - 189 | | CENTER LAB | [...] + + | [place] [facility] | [address] | [place] [address] | [phone] | | [facility] | | | | | [facility] | | | | + [...] | mL/min/1.73m2 | [facility] | | | SPANISH | RATE,ESTIMATED | | HOSPITAL | | | | mL/min/1.62q4Uibc than | | REGIONAL | | | [...] + + + | [place] [facility] | [address] [place] [address] | [place] [address] | [phone] | | [facility] | | | | | [facility] | | | | + [...]
--- OUTSIDE RECORDS SUMMARY | ~2019-09-30 | XMS | Encounter Summary ---
Demographics + + + | Address | [address] | | | [place] [address] | + + + | Home Phone [...] Team Providers + +------+ + | Care Spun Paste Machine Operator Name | Role | Phone | + +------+ + PCP | Unavailable | + +------+ + Encounter Details +--------+ + + + + | Date | Type | Department | Care Team | Description | +--------+ + + + + | 03/01/ | [facility] | Azul Yeboah | | | 2016 | Encounter | HOSPITAL NEUROLOGY | MD Marti [address] | | | | | CLINIC [address] | [place] | | | | | [address] [place], | [place] [address] | | | | | [place] [address] | [phone] | | | | | [phone] | | | +--------+ + + + [...] | | | | | [place] [address] | | | | | | [phone] | | | | | | | | +--------+ + + + + | 10/30/ | Office | Primary Care | Erika Ernst, | | | 2019 | Visit | | DO [address] | | | | | | [place] [address] | | | | | | [phone] | | | | | | | [...] [place] | | | | | | [address] | | | | | | [phone] | | | | | | | | +--------+ + + + + | 02/09/ | Office | Neurology | Dhara, | | | 2019 | Visit | | [address] | | | | | | [address] [place], | | | | | | [place] [address] | | | | | | [phone] | | | | | | | | +--------+ + + + + documented as of this encounter Visit Diagnoses Not on filedocumented in this encounter"
--- OUTSIDE RECORDS SUMMARY | ~2019-09-30 | XMS | Encounter Summary ---
Demographics + + + | Address | [address] | | | [place] [address] | + + + | Home Phone [...] Providers + +------+ + | Care Mechanical Maintenance Name | Role | Phone | + [...] | Services | | Neuropathy | C, FORMULA MAKER [address] | Luis Rubin MD | | | Required | | of right | [address], | [address] | | | | | upper | [place] | [address], [place] | | | | | extremity | [place], [place] | [place] | | | | | Procedures | [address] | [address] Phone: | | | | | EMG | Phone: | [phone] | | | | | | [phone] | Fax: | | | | | | Fax: | [phone] | | | | | | [phone] | | +--------+ + + + + [...] | Required | | right index | DIRECTOR FRANCHISE SALES-FORMULA MAKER | [address] | | | | | finger, | [address] | [place] | | | | | initial | St [place] | [place], [place] | | | | | encounter | [place] | [address] | | | | | Procedures | [address] | Phone: | | | | | [place] | Phone: | [phone] | | | | | | [phone] | Fax: | | | | | | Fax: | [phone] | | | | | | [phone] | | +--------+ + + + + [...] | | | [place] | [address] | (Primary Dx); | | | | [address] | [phone] | Neuropathy of right | | | | [phone] | | upper extremity | +--------+---------+ + [...] | : 1990 | Medical Record Number:[id number] | Author: MOHSEN Martinez | Date of [...] finger. On May 06 2019 she visited [facility] the walk-in clinic and x-rays were performed. [...] mouth. Once a week Cholecalciferol (VITAMIN D3) 26757 units TABS Take 1 tablet by mouth [...] ser vices at a facility other than [facility]. Follow-up Return for consultation with neurology [...] E.C.U. Tendon; Surgeon: Inocencio Noriega MD; Location: [facility] SURGERY RIGHT KIDNER PROCEDURE 01/20/2016 Surgeon: Fani Mahajan MD; Location: [facility] TENDON RELEASE TONSILLECTOMY WISDOM TOOTH EXTRACTION Family History Problem Relation Age of Onset Other (see comment) Mother gallbladder disease Hypertension Father Other (see comment) Father arrhymthmia Breast cancer Sister Cervical cancer Maternal Grandmother Heart attack Maternal Aunt [place] Social History Socioeconomic History Marital status: Single [...] and their vital signs recorded by my sales assistant displays today, a s found in this chart note. Electronically signed by: MOHSEN Martinez 05/21/2019 at 18:23 Note: Part of this report was transcribed using voice recognition software. Every effort wa s made to ensure accuracy. However, inadvertent computerized therapeutic program worker errors may be pre sent. CC: Erika [...] | | | | | [place] [address] | | | | | | [phone] | | | | | | | | +--------+ + + + + | 10/30/ | Office | Primary Care | Erika Ernst, | | | 2019 | Visit | | DO [address] | | | | | | [place] [address] | | | | | | [phone] | | | | | | | [...] [place] | | | | | | [address] | | | | | | [phone] | | | | | | | | +--------+ + + + + | 02/09/ | Office | Neurology | Dhaar, | | | 2019 | Visit | | [address] | | | | | [address] [place], | | | | | | [place] [address] | | | | | | [phone] | | | | | | | [...]
--- OUTSIDE RECORDS SUMMARY | ~2019-09-30 | XMS | Encounter Summary ---
Demographics + + + | Address | [address] | | | [place] [address] | + + + | Home Phone [...] Team Providers + +------+ + | Care Silver Recovery Operator Name | Role | Phone | [...] | MEDICAL CLIN[facility] [address] | [place] [address] | | | | | [address] [place], | [phone] | | | | | [place] [address] | | | | | | [phone] | | | +--------+ + + + [...] | | | | | [place] [address] | | | | | | [phone] | | | | | | | | +--------+ + + + + | 10/30/ | Office | Primary Care | Erika Ernst, | | | 2019 | Visit | | DO [address] [place] [address] | | | | | | [place] [address] | | | | | | [phone] | | | | | | | [...] [place] | | | | | | [address] | | | | | | [phone] | | | | | | | | +--------+ + + + + | 02/09/ | Office | Neurology | Dhara, | | | 2019 | Visit | | [address] | | | | | | [address] [place], | | | | | | [place] [address] | | | | | | [phone] | | | | | | | | +--------+ + + + + documented as of this encounter Visit Diagnoses Not on filedocumented in this encounter"
--- OUTSIDE RECORDS SUMMARY | ~2019-09-30 | XMS | Encounter Summary ---
Demographics + + + | Address | [address] | | | [place] [address] | + + + | Home Phone [...] Team Providers + +------+ + | Care Bedspread Seamer Name | Role | Phone | + [...] | CENTER [address] [place] | | | | | [place], [place] | [address] | | | | | [address] | | | | | | [phone] | | | +--------+ + + + [...] | | | | | [place] [address] | | | | | | [phone] | | | | | | | | +--------+ + + + + | 10/30/ | Office | Primary Care | Erika Ernst, | | | 2019 | Visit | | DO [address] [place] | | | | | | [place] [address] | | | | | | [phone] | | | | | | | [...] [place] | | | | | | [address] | | | | | | [phone] | | | | | | | | +--------+ + + + + | 02/09/ | Office | Neurology | Dhara, | | | 2020 | Visit | | [address] | | | | | | [address] [place], | | | | | | [place] [address] | | | | | | [phone] | | | | | | | | +--------+ + + + + documented as of this encounter Visit Diagnoses Not on filedocumented in this encounter"
--- OUTSIDE RECORDS SUMMARY | ~2019-09-30 | XMS | Encounter Summary ---
Demographics + + + | Address | [address] | | | [place] [address] | + + + | Home Phone [...] Team Providers + +------+ + | Care Psychology Tech Name | Role | Phone | [...] | [address] | | | | | [address] | | | | | | [phone] | | | +--------+ + + + [...] | | | | | [place] [address] | | | | | | [phone] | | | | | | | | +--------+ + + + + | 10/30/ | Office | Primary Care | Erika Ernst, | | | 2019 | Visit | | DO [address] | | | | | | [place] [address] | | | | | | [phone] | | | | | | | [...] [place] | | | | | | [address] | | | | | | [phone] | | | | | | | | +--------+ + + + + | 02/09/ | Office | Neurology | Dhara, | | | 2020 | Visit | | [address] | | | | | | [address] [place], | | | | | | [place] [address] | | | | | | [phone] | | | | | | | | +--------+ + + + + documented as of this encounter Visit Diagnoses Not on filedocumented in this encounter"
--- OUTSIDE RECORDS SUMMARY | ~2019-09-30 | XMS | Encounter Summary ---
Demographics + + + | Address | [address] | | | [place] [address] | + + + | Home Phone [...] Team Providers + +------+ + | Care Phlebotomy Support Tech Name | Role | Phone | + +------+ + | Erika Ernst DO | PCP | | + +------+ + Encounter Details +--------+ + + + + | Date | Type | Department | Care Team | Description | +--------+ + + + + | 05/02/ | [facility] | [place] [facility] | Erika Ernst, | Acute right ankle | | 2019 | Encounter | HOSPITAL XRAY [address] | DO [address] | pain | | | | [address] [place] | [place] [address] | | | | | [place], [place] | [phone] | | | | | [address] | | | | | | [phone] | | | +--------+ + + + [...] | 04/12/20 | | | (VITAMIN D3) [address] | mouth Once a week | tablet [...] | | | | | [place] [address] | | | | | | [phone] | | | | | | | | +--------+ + + + + | 10/30/ | Office | Primary Care | Erika Ernst, | | | 2019 | Visit | | DO [address] [place] | | | | | | [place] [address] | | | | | | [phone] | | | | | | | [...] [place] | | | | | | [address] | | | | | | [phone] | | | | | | | | +--------+ + + + + | 02/09/ | Office | Neurology | Dhara, | | | 2020 | Visit | | [address] | | | | | | [address] [place], | | | | | | [place] [address] | | | | | | [phone] | | | | | | | [...]
--- OUTSIDE RECORDS SUMMARY | ~2019-09-30 | XMS | Encounter Summary ---
Demographics + + + | Address | [address] | | | [place] [address] | + + + | Home Phone [...] Team Providers + +------+ + | Care Outdoor Emergency Care Technician Name | Role | Phone | [...] [place] [facility] | Inocencio Noriega | Other | | 2019 | | HOSPITAL [facility] | MD Malcolm [address] | | | | | [address] [place] | [address] [place] | | | | | [place], [place] | [place] [address] | | | | | [address] | [phone] | | | | | [phone] | | | +--------+ + + + [...] | | | | | [place] [address] | | | | | | [phone] | | | | | | | | +--------+ + + + + | 10/30/ | Office | Primary Care | Erika Ernst, | | | 2019 | Visit | | DO [address] | | | | | | [place] [address] | | | | | | [phone] | | | | | | | [...] [place] | | | | | | [address] | | | | | | [phone] | | | | | | | | +--------+ + + + + | 02/09/ | Office | Neurology | Dhara, | | | 2020 | Visit | | [address]WA[address] | [address] [place], | | | | | | [place] [address] | | | | | | [phone] | | | | | | | | +--------+ + + + + documented as of this encounter Visit Diagnoses Not on filedocumented in this encounter"
--- OUTSIDE RECORDS SUMMARY | ~2019-09-30 | XMS | Encounter Summary ---
Demographics + + + | Address | [address] | | | [place] [address] | + + + | Home Phone [...] Providers + +------+ + | Care Geophysical Support Specialist Name | Role | Phone | [...] | [facility] | [place] [address] | | | | [address] [place], | [phone] | | | | | [place] [address] | | | | | | [phone] | | | +--------+ + + + [...] | | | | | [place] [address] | | | | | | [phone] | | | | | | | | +--------+ + + + + | 10/30/ | Office | Primary Care | Erika Ernst, | | | 2019 | Visit | | DO [address] [place] [address] | | | | | | [place] [address] | | | | | | [phone] | | | | | | | [...] [place] | | | | | | [address] | | | | | | [phone] | | | | | | | | +--------+ + + + + | 02/09/ | Office | Neurology | Dhara, | | | 2019 | Visit | | DWAINE [address] [place], | | | | | | [place] [address] | | | | | | [phone] | | | | | | | | +--------+ + + + + documented as of this encounter Visit Diagnoses Not on filedocumented in this encounter"
--- OUTSIDE RECORDS SUMMARY | ~2019-09-30 | XMS | Encounter Summary ---
Demographics + + + | Address | [address] | | | [place] [address] | + + + | Home Phone [...] Team Providers + +------+ + | Care Lipstick Molder Name | Role | Phone | [...] | Required | | right index | MODERATE NEEDS TEACHER-POULTRY SLAUGHTERER | [address] | | | | | finger, | [address] | [place] | | | | | initial | St [place] | [place], [place] | | | | | encounter | [place] | [address] | | | | | Procedures | [address] | Phone: | | | | | [place] | Phone: | [phone] | | | | | | [phone] | Fax: | | | | | | Fax: | [phone] | | | | | | [phone] | | +--------+ + + + + [...] | Visit | [facility] | MODERATE NEEDS TEACHER-POULTRY SLAUGHTERER [address] | index finger, | | | | [facility] [address] | [address] | initial encounter | | | | [address] [place], | [place] [address] | (Primary Dx) | | | | [place] [address] | [phone] | | | | | [phone] | | | +--------+---------+ + + + [...] in this encounter Progress Notes YolandaStuAlem L, MODERATE NEEDS 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 Once a week Cholecalciferol (VITAMIN D3) 57425 units TABS Take 1 tablet by mouth [...] the past 24 hour(s)). [facility] ORTH[facility]IC XR FINGER RIGHT 2 + VW Assessment: 1. Injury of right index finger, initial encounter - * [place] [facility] - AMB Referral - XR Finger Right 2 + Vw; Future Plan: Persistent right index finger PIP joint pain post injury two months ago. Will get an xray, place in a finger splint and refer to orthopedics as requested Return for referral to orthopedics. Electronically signed by: CHASE Edward05/06/201918:28 [facility], Walk-in [facility] Note: Part of this report was transcribed using voice recognition software. Every effort wa s made to ensure accuracy. However, inadvertent computerized electrical sign servicer errors may be pre sent. documente d [...] | | | | | [place] [address] | | | | | | [phone] | | | | | | | | +--------+ + + + + | 10/30/ | Office | Primary Care | Erika Ernst, | | | 2019 | Visit | | DO [address] | | | | | | [place] [address] | | | | | | [phone] | | | | | | | [...] [place] | | | | | | [address] | | | | | | [phone] | | | | | | | | +--------+ + + + + | 02/09/ | Office | Neurology | Dhara, | | | 2019 | Visit | | DWAINE Ross [address] | | | | | | [address] [place], | | | | | | [place] [address] | | | | | | [phone] | | | | | | | [...]
--- OUTSIDE RECORDS SUMMARY | ~2019-09-30 | XMS | Encounter Summary ---
Demographics + + + | Address | [address] | | | [place] [address] | + + + | Home Phone [...] Dx); | | 2018 | Visit | [facility] | [address] | Essential | | | | MEDICAL CLINIC [facility] | [place] [address] | hypertension; Iron | | | | [address] [place], | [phone] | deficiency; Acute | | | | [place] [address] | | cystitis with | | | | [phone] | | hematuria | +--------+---------+ + + [...] | | | | | [place] [address] | | | | | | [phone] | | | | | | | | +--------+ + + + + | 10/30/ | Office | Primary Care | Erika Ernst, | | | 2019 | Visit | | DO [address] | | | | | | [place] [address] | | | | | | [phone] | | | | | | | [...] [place] | | | | | | [address] | | | | | | [phone] | | | | | | | | +--------+ + + + + | 02/09/ | Office | Neurology | Dhara, | | | 2019 | Visit | | DWAINE Ross [address] | | | | | | [address] [place], | | | | | | [place] [address] | | | | | | [phone] | | | | | | | [...] + + | [place] [facility] | [address] | [place] [address] | [phone] | | [facility] | | | | | [...]
--- OUTSIDE RECORDS SUMMARY | ~2019-09-30 | XMS | Encounter Summary ---
Demographics + + + | Address | [address] | | | [place] [address] | + + + | Home Phone [...] Team Providers + +------+ + | Care Value Stream Coach Name | Role | Phone | [...] | DR [place], [place] | [place] [address] | | | | | [address] | [phone] | | | | | [phone] | | | +--------+ + + + [...] | | | | | [place] [address] | | | | | | [phone] | | | | | | | | +--------+ + + + + | 10/30/ | Office | Primary Care | Erika Ernst, | | | 2019 | Visit | | DO [address] | | | | | | [place] [address] | | | | | | [phone] | | | | | | | [...] [place] | | | | | | [address] | | | | | | [phone] | | | | | | | | +--------+ + + + + | 02/09/ | Office | Neurology | Dhara, | | | 2020 | Visit | | DWAINE Ross [address] | | | | | | [address] [place], | | | | | | [place] [address] | | | | | | [phone] | | | | | | | | +--------+ + + + + documented as of this encounter Visit Diagnoses Not on filedocumented in this encounter"
--- OUTSIDE RECORDS SUMMARY | ~2019-09-30 | XMS | Encounter Summary ---
Demographics + + + | Address | [address] | | | [place] [address] | + + + | Home Phone [...] Organization | [facility] | | | and [...] Team Providers + +------+ + | Care Motorbike Courier Name | Role | Phone | + +------+ + PCP | Unavailable | + +------+ + Encounter Details +--------+ + + + + | Date | Type | Department | Care Team | Description | +--------+ + + + + | 08/04/ | [facility] | Jessica Hoang, | | | 2013 | Encounter | HOSPITAL EMERGENCY | [address] | | | | | CENTER [address] | [place] | | | | | [place] | [address] | | | | | [address] | | | | | | [phone] | | | +--------+ + + + [...] | | | | | [place] [address] | | | | | | [phone] | | | | | | | | +--------+ + + + + | 10/30/ | Office | Primary Care | Erika Ernst, | | | 2019 | Visit | | DO [address] | | | | | | [place] [address] | | | | | | [phone] | | | | | | | [...] [place] | | | | | | [address] | | | | | | [phone] | | | | | | | | +--------+ + + + + | 02/09/ | Office | Neurology | Dhara, | | | 2020 | Visit | | DWAINE Ross [address] | | | | | | [address] [place], | | | | | | [place] [address] | | | | | | [phone] | | | | | | | | +--------+ + + + + documented as of this encounter Visit Diagnoses Not on filedocumented in this encounter"
--- OUTSIDE RECORDS SUMMARY | ~2019-09-30 | XMS | Encounter Summary ---
Demographics + + + | Address | [address] | | | [place] [address] | + + + | Home Phone [...] Team Providers + +------+ + | Care Podiatric Medicine Doctor Name | Role | Phone | + +------+ + PCP | Unavailable | + +------+ + Encounter Details +--------+ + + + + | Date | Type | Department | Care Team | Description | +--------+ + + + + | 08/21/ | [facility] | Nicanor Mckeon | | | 2016 | Encounter | HOSPITAL NURSERY | MD Caryn [address] | | | | | [address] | [place] | | | | | [place] | [address] | | | | | [address] | [phone] | | | | | [phone] | | | +--------+ + + + [...] | | | | | [place] [address] | | | | | | [phone] | | | | | | | | +--------+ + + + + | 10/30/ | Office | Primary Care | Erika Ernst, | | | 2019 | Visit | | DO [address] | | | | | | [place] [address] | | | | | | [phone] | | | | | | | [...] [place] | | | | | | [address] | | | | | | [phone] | | | | | | | | +--------+ + + + + | 02/09/ | Office | Neurology | Dhara, | | | 2019 | Visit | | DWAINE Ross [address] | | | | | | [address] [place], | | | | | | [place] [address] | | | | | | [phone] | | | | | | | | +--------+ + + + + documented as of this encounter Visit Diagnoses Not on filedocumented in this encounter"
--- OUTSIDE RECORDS SUMMARY | ~2019-09-30 | XMS | Encounter Summary ---
Demographics + + + | Address | [address] | | | [place] [address] | + + + | Home Phone [...] Team Providers + +------+ + | Care Refrigerator Tester Name | Role | Phone | [...] [address] | [address] | (temporomandibular | | | | [address] [place] | [place], [place] | joint disorder) | | | | [place], [place] | [address] | (Primary Dx); | | | | [address] | [phone] | Non-seasonal | | | | [phone] | | allergic rhinitis | | | [...] | | | | | [place] [address] | | | | | | [phone] | | | | | | | | +--------+ + + + + | 10/30/ | Office | Primary Care | Erika Ernst, | | | 2019 | Visit | | DO [address] | | | | | | [place] [address] | | | | | | [phone] | | | | | | | [...] [place] | | | | | | [address] | | | | | | [phone] | | | | | | | | +--------+ + + + + | 02/09/ | Office | Neurology | Dhara, | | | 2020 | Visit | | CodyDWAINE [address] | | | | | | 4TH [facility], | | | | | | [place] [address] | | | | | | [phone] | | | | | | | [...]
--- OUTSIDE RECORDS SUMMARY | ~2019-09-30 | XMS | Encounter Summary ---
Demographics + + + | Address | [address] | | | [place] [address] | + + + | Home Phone [...] + +------+ + | Care Director Of Diagnostic Imaging Name | Role | Phone | + [...] pharyngitis | | 2019 | Visit | [facility] | COMMISSIONER OF INTERNAL REVENUE [address] | due to other | | | | MEDICAL CLINIC [address] | [place] [address] | specified organisms | | | | [address] [place], | [phone] | (Primary Dx) | | | | [place] [address] | | | | | | [phone] | | | +--------+---------+ + + + [...] | | | | | [place] [address] | | | | | | [phone] | | | | | | | | +--------+ + + + + | 10/30/ | Office | Primary Care | Erika Ernst, | | | 2019 | Visit | | DO [address] | | | | | | [place] [address] | | | | | | [phone] | | | | | | | [...] [place] | | | | | | [address] | | | | | | [phone] | | | | | | | | +--------+ + + + + | 02/09/ | Office | Neurology | Dhara, | | | 2019 | Visit | | DWAINE Ross [address] | | | | | | [address] [place], | | | | | | [place] [address] | | | | | | [phone] | | | | | | | [...] + + | [place] [facility] | [address] | [place] [address] | [phone] | | HOSPITAL LABORATORY | | | [...]
--- OUTSIDE RECORDS SUMMARY | ~2019-09-30 | XMS | Encounter Summary ---
Demographics + + + | Address | [address] | | | [place] [address] | + + + | Home Phone [...] Team Providers + +------+ + | Care Stucco Worker Name | Role | Phone | [...] [address] [place] | [place] [address] | | | | | [place], [place] | [phone] | | | | | [address] | | | | | | [phone] | | | +--------+ + + + [...] | | | | | [place] [address] | | | | | | [phone] | | | | | | | | +--------+ + + + + | 10/30/ | Office | Primary Care | Erika Ernst, | | | 2019 | Visit | | DO [address] [place] | | | | | | [place] [address] | | | | | | [phone] | | | | | | | [...] [place] | | | | | | [address] | | | | | | [phone] | | | | | | | | +--------+ + + + + | 02/09/ | Office | Neurology | Dhara, | | | 2019 | Visit | | Cody, WOOL PRESSER [address] | | | | | | 4TH [facility], | | | | | | [place] [address] | | | | | | [phone] | | | | | | | [...]
--- OUTSIDE RECORDS SUMMARY | ~2019-09-30 | XMS | Encounter Summary ---
Demographics + + + | Address | [address] | | | [place] [address] | + + + | Home Phone [...] Team Providers + +------+ + | Care Shoeblack Name | Role | Phone | + [...] | | | | s (de | [place], [place] | [place] [address] | | | | | quervain) | [address] | Phone: | | | | | Pain in | Phone: | [phone] | | | | | right wrist | [phone] | Fax: | | | | | Procedures | Fax: | [phone] | | | | | OT TREAT | [phone] | | +--------+--------+ + + + + [...] | | [address] [place] | [place] [address] | (Primary Dx); Right | | | | [place] | [phone] | wrist pain | | | | [address] | | | | | | [phone] | Milla Gracia, OT | | +--------+ [...] Bella, OT - 08/29/2018 12:28 PM PST [facility] THERAPY OT [address] [place] [address] Occupational Therapy PROGRESS NOTE Date: 08/28/2018 Patient [...] jar: 3 - Moderate Difficulty Do heavy checker in: 4 - Severe Difficulty Carry a shopping [...] se ssion) Strength: Left Hand Strength - Railroad Passenger Agent (lbs) L Railroad Passenger Agent Trial 1: 60 L Railroad Passenger Agent Trial 2: 55 L Railroad Passenger Agent Trial 3: 48 L Railroad Passenger Agent Trial Average: 54.33 L Three Jaw Payam Trial 1: 10 L Three Jaw Payam Trial 2: 13 L Three Jaw Payam Trial 3: 11 L Three Jaw Payam Trial Average: 11.33 L Lateral Pinch Trial 1: 16 L Lateral Pinch Trial 2: 17 L Lateral Pinch Trial 3: 17.5 L Lateral Pinch Trial Average: 16.83 Right Hand Strength - Railroad Passenger Agent (lbs) R Railroad Passenger Agent Trial 1: 26 R Railroad Passenger Agent Trial 2: 24 R Railroad Passenger Agent Trial 3: 23 R Railroad Passenger Agent Trial Average: 24.33 R Three Jaw Payam [...] 5: TFA (20 minutes): Objective measurements (ROM, career resource specialist strength) and discus tunde of limitations to [...] pt has made progress with her R career resource specialist strength, but is still experiencin g activity [...] in 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, and career resource specialist and pinch weakness in the right [...] Goal 2: The pt will have right career resource specialist strength of 50 lbs by discharge Goal 2 Status: At PN (08/28/18) PARTIALLY MET. Right career resource specialist: 24, and left is 54 lbs Goal [...] Ordering Physician: Jeffrey Gandhi MD Claim #: [id number] Date of Injury: 07/20/2018 (Date of surgery) [...] at last Assessment Left Hand Strength - Railroad Passenger Agent (lbs) L Railroad Passenger Agent Trial 1: 60 L Railroad Passenger Agent Trial 2: 52 L Railroad Passenger Agent Trial 3: 55 L Railroad Passenger Agent Trial Average: 55.67 L Three Jaw Payam Trial 1: 13 L Three Jaw Payam Trial 2: 13 L Three Jaw Payam Trial 3: 14 L Three Jaw Payam Trial Average: 13.33 L Lateral Pinch Trial 1: 17 L Lateral Pinch Trial 2: 17 L Lateral Pinch Trial 3: 18 L Lateral Pinch Trial Average: 17.33 Right Hand Strength - Railroad Passenger Agent (lbs) R Railroad Passenger Agent Trial 1: 15 R Railroad Passenger Agent Trial 2: 24 R Railroad Passenger Agent Trial 3: 21 R Railroad Passenger Agent Trial Average: 20 R Three Jaw Payam Trial 1: 8 R Three Jaw Payam Trial 2: 10 R Three Jaw Payam Trial 3: 9 R Three Jaw Payam Trial Average: 9 R Lateral Pinch Trial 1: 8 R Lateral Pinch Trial 2: 10 R Lateral Pinch Trial 3: 11 R Lateral Pinch Trial Average: 9.67 Current Strength Left Hand Strength - Railroad Passenger Agent (lbs) L Railroad Passenger Agent Trial 1: 60 L Railroad Passenger Agent Trial 2: 55 L Railroad Passenger Agent Trial 3: 48 L Railroad Passenger Agent Trial Average: 54.33 L Three Jaw Payam Trial 1: 10 L Three Jaw Payam Trial 2: 13 L Three Jaw Payam Trial 3: 11 L Three Jaw Payam Trial Average: 11.33 L Lateral Pinch Trial 1: 16 L Lateral Pinch Trial 2: 17 L Lateral Pinch Trial 3: 17.5 L Lateral Pinch Trial Average: 16.83 Right Hand Strength - Railroad Passenger Agent (lbs) R Railroad Passenger Agent Trial 1: 26 R Railroad Passenger Agent Trial 2: 24 R Railroad Passenger Agent Trial 3: 23 R Railroad Passenger Agent Trial Average: 24.33 R Three Jaw Payam [...] 08/07/2018 Certification To: 10/30/2018 Treatment Plan/Interventions OT [id number] - Therapeutic Orldonio43724 - Therapeutic Fvabrzsodz18855 - Self Care/Ho me Ktzjtpcekv27852 - Manual Eqxwfcx79123 - Orthotic/Prosthetic Yddhdpan96618 - Uayryypzvu527 34 - Contrast Vwhw54733 - Paraffin BathSplinting Moist heat, cold therapy [...] pt has made progress with her R career resource specialist strength, but is still experiencin g activity [...] | | | | | [place] [address] | | | | | | [phone] | | | | | | | | +--------+ + + + + | 10/30/ | Office | Primary Care | Erika Ernst, | | | 2019 | Visit | | DO [address] | | | | | | [place] [address] | | | | | | [phone] | | | | | | | [...] [place] | | | | | | [address] | | | | | | [phone] | | | | | | | | +--------+ + + + + | 02/09/ | Office | Neurology | Dhara, | | | 2020 | Visit | | Cody, TRAFFIC ENGINEERING DIRECTOR [address] | | | | | | [address] [facility] [place], | | | | | | [place] [address] | | | | | | [phone] | | | | | | | | +--------+ + + + + documented as of this encounter Visit Diagnoses + + | Diagnosis | + + | Radial styloid tenosynovitis - Primary | + + | Right wrist pain Pain in joint, forearm | + + documented in this encounter"
--- OUTSIDE RECORDS SUMMARY | ~2019-09-30 | XMS | Encounter Summary ---
Demographics + + + | Address | [address] | | | [place] [address] | + + + | Home Phone [...] Team Providers + +------+ + | Care Learning And Development Administrator Name | Role | Phone | [...] | MEDICAL [facility]IN[facility] [address] | [place] [address] | (Primary Dx); Iron | | | | [address] [place], | [phone] | deficiency; Asthma | | | | [place] [address] | | due to environmental | | | | [phone] | | allergies; Dysuria; | | | [...] | | | | | [place] [address] | | | | | | [phone] | | | | | | | | +--------+ + + + + | 10/30/ | Office | Primary Care | Erika Ernst, | | | 2019 | Visit | | DO [address] [place] | | | | | | [place] [address] | | | | | | [phone] | | | | | | | [...] [place] | | | | | | [address] | | | | | | [phone] | | | | | | | | +--------+ + + + + | 02/09/ | Office | Neurology | Dhara, | | | 2019 | Visit | | DWAINE Ross [address] | | | | | [address] [place], | | | | | | [place] [address] | | | | | | [phone] | | | | | | | [...] - 1.030 | [place] | | | [place] | | | [facility] | | | [...] + + | [place] [facility] | [address] | [place] [address] | [phone] | | HOSPITAL LABORATORY | | | [...] not | >60Comment: GLOMERULAR | >=60 | [facility] | | | | FILTRATION | mL/min/1.73m2 | [facility] | | | [facility] | RATE,ESTIMATED | | HOSPITAL | | | | mL/min/1.20d6Wxzz than | | LABORATORY | | | [...] + + | [place] [facility] | [address] | [place] [address] | [phone] | | HOSPITAL LABORATORY | | | [...] + + | [place] [facility] | [address] | [place] [address] | [phone] | | HOSPITAL LABORATORY | | | [...] tohttp://education.quest | | | | | | diagnostics.WellTek/faq/FAQ2 | | | | | | 02(This [...] | | | | | | code 59576) is | | | | | | [...] seehttps://education.que | | | | | | [employer].Well[employer]/faq/FA | | | | | | Q22v1 Test(s) performed | | | | | | at: [facility] | | | | | | [facility]FECTIOUS [facility] | | | | | | [address], | | | | | | [place], [place] | | | | | | [address] [facility] | | | | | | [facility] | | | | | | [place] [address] | | | | | | CLIA #[id number] | | | | + + + + + + + + | Specimen | + + | Blood | + + + + + + + | Performing | Address | City/State/Zipcode | Phone Number | | Organization | | | | + + + + + | REFERENCE LAB | [address] | [place], [place] | | | [facility] - | | [address] | | | JESSICA STEEN | | [...]
--- OUTSIDE RECORDS SUMMARY | ~2019-09-30 | XMS | Encounter Summary ---
Demographics + + + | Address | [address] | | | [place] [address] | + + + | Home Phone [...] Team Providers + +------+ + | Care Machining Engineer Name | Role | Phone | [...] | MEDICAL CLINIC [address] | [place] [address] | | | | [address] [place], | [phone] | | | | | [place] [address] | | | | | | [phone] | | | +--------+ + + + [...] | | | | | [place] [address] | | | | | | [phone] | | | | | | | | +--------+ + + + + | 10/30/ | Office | Primary Care | Erika Ernst, | | | 2019 | Visit | | DO [address] [place] | | | | | | [place] [address] | | | | | | [phone] | | | | | | | [...] [place] | | | | | | [address] | | | | | | [phone] | | | | | | | | +--------+ + + + + | 02/09/ | Office | Neurology | Dhara, | | | 2020 | Visit | | DWAINE Ross [address] | | | | [address] [place], | | | | | | [place] [address] | | | | | | [phone] | | | | | | | | +--------+ + + + + documented as of this encounter Visit Diagnoses Not on filedocumented in this encounter"
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
--- OUTSIDE RECORDS SUMMARY | ~2019-09-30 | XMS | Encounter Summary ---
Demographics + + + | Address | [address] | | | [place] [address] | + + + | Home Phone [...] Team Providers + +------+ + | Care Drive In Teller Name | Role | Phone | + [...] | Services | | Neuropathy | C, VETERANS ADVISER [address] | Luis Rubin MD | | | Required | | of right | [address], | [address] | | | | | upper | [place] [address] [place] | [address] [place] | | | | | extremity | [place], [place] | [place] | | | | | Procedures | [address] | [address] Phone: | | | | | [facility] | Phone: | [phone] | | | | | | [phone] | Fax: | | | | | | Fax: | [phone] | | | | | | [phone] | | +--------+ + + + + [...] | Numbness | | | | [place] [address] | | | | | | [phone] | | | +--------+ + + + [...] [address] | | | | | | [phone] | | | | | | | | +--------+ + + + + | 10/30/ | Office | Primary Care | Erika Ernst, | | | 2019 | Visit | | DO [address] | | | | | | [place] [address] | | | | | | [phone] | | | | | | | | +--------+ + + + + | 11/07/ | Appointment | Nutrition | Janel Webster | | | 2019 | | | [facility] [place] | | +--------+ + + + + | 11/28/ | Office | Otolaryngology | Atnhony Alvarado MD | | | 2019 | Visit | | [address] | | | | | | [place] | | | | | | [address] | | | | | | [phone] | | | | | | | | +--------+ + + + + | 02/09/ | Office | Neurology | Dhara, | | | 2019 | Visit | | DWAINE Ross [address] | | | | | [address] [place], | | | | | | [place] [address] | | | | | | [phone] | | | | | | | [...]
--- OUTSIDE RECORDS SUMMARY | ~2019-09-30 | XMS | Encounter Summary ---
Demographics + + + | Address | [address] | | | [place] [address] | + + + | Home Phone [...] Team Providers + +------+ + | Care Farmworker Fruit Name | Role | Phone | + [...] | [place], [place] | [place] [address] | | | | | [address] | [phone] | | | | | [phone] | | | +--------+ + + + [...] | | | | | [place] [address] | | | | | | [phone] | | | | | | | | +--------+ + + + + | 10/30/ | Office | Primary Care | Erika Ernst, | | | 2019 | Visit | | DO [address] | | | | | | [place] [address] | | | | | | [phone] | | | | | | | [...] [place] | | | | | | [address] | | | | | | [phone] | | | | | | | | +--------+ + + + + | 02/09/ | Office | Neurology | Dhara, | | | 2019 | Visit | | DWAINE Ross [address] | | | [address] [place], | | | | | | [place] [address] | | | | | | [phone] | | | | | | | | +--------+ + + + + documented as of this encounter Visit Diagnoses + + | Diagnosis | + + | Torn tendon - Primary Unspecified site of sprain and strain | + + documented in this encounter"
--- OUTSIDE RECORDS SUMMARY | ~2019-09-30 | XMS | Encounter Summary ---
Demographics + + + | Address | [address] | | | [place] [address] | + + + | Home Phone [...] Team Providers + +------+ + | Care Microelectronics Assembler Name | Role | Phone | [...] | [address] [place], [place] | [place] [address] | | | | | [address] | [phone] | | | | | [phone] | | | +--------+ + + + [...] | | | | | [place] [address] | | | | | | [phone] | | | | | | | | +--------+ + + + + | 10/30/ | Office | Primary Care | Erika Ernst, | | | 2019 | Visit | | DO [address] | | | | | | [place] [address] | | | | | | [phone] | | | | | | | [...] [place] | | | | | | [address] | | | | | | [phone] | | | | | | | | +--------+ + + + + | 02/09/ | Office | Neurology | Dhara, | | | 2019 | Visit | | DWA[address] | | [address] [place], | | | | | | [place] [address] | | | | | | [phone] | | | | | | | | +--------+ + + + + documented as of this encounter Visit Diagnoses Not on filedocumented in this encounter"
--- OUTSIDE RECORDS SUMMARY | ~2019-09-30 | XMS | Encounter Summary ---
Demographics + + + | Address | [address] | | | [place] [address] | + + + | Home Phone [...] | | | | s (de | [place], [place] | [place] [address] | | | | | quervain) | [address] | Phone: | | | | | Pain in | Phone: | [phone] | | | | | right wrist | [phone] | Fax: | | | | | Procedures | Fax: | [phone] | | | | | OT TREAT | [phone] | | +--------+--------+ + + + + [...] | | [address] [place] | [place] [address] | (Primary Dx); Right | | | | [place], [place] | [phone] | wrist pain | | | | [address] | | | | | | [phone] | Nakia Koo OT | | +--------+ [...] | 19 | 9 | | [id number]) | | | | | | | [...] Koo, OT - 11/06/2018 4:42 PM PST [facility] OT [address] [place] [address] Occupational Therapy Daily Treatment Note Date: 11/06/2018 [...] wrist but continues to have right wrist, hand woodworking sander and pinch weakness and significant pain (3 [...] 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, and hand woodworking sander and pinch weakness in the right hand [...] [address] | | | | | | [phone] | | | | | | | | +--------+ + + + + | 10/30/ | Office | Primary Care | Erika Ernst, | | | 2019 | Visit | | DO [address] | | | | | | [place] [address] | | | | | | [phone] | | | | | | | [...] [place] | | | | | | [address] | | | | | | [phone] | | | | | | | | +--------+ + + + + | 02/09/ | Office | Neurology | Dhara, | | | 2019 | Visit | | DWA[address] Ross [address] | | [address] [place], | | | | | | [place] [address] | | | | | | [phone] | | | | | | | | +--------+ + + + + documented as of this encounter Visit Diagnoses + + | Diagnosis | + + | Radial styloid tenosynovitis - Primary | + + | Right wrist pain Pain in joint, forearm | + + documented in this encounter
--- OUTSIDE RECORDS SUMMARY | ~2019-09-30 | XMS | Encounter Summary ---
Demographics + + + | Address | [address] | | | [place] [address] | + + + | Home Phone [...] Team Providers + +------+ + | Care Agricultural Lender Name | Role | Phone | + [...] [facility] | DO [address] | | | | | MEDICAL CLINIC [address] | [place] [address] | | | | | [address] [place], | [phone] | | | | | [place] [address] | | | | | | [phone] | | | +--------+ + + + [...] | | | | | [place] [address] | | | | | | [phone] | | | | | | | | +--------+ + + + + | 10/30/ | Office | Primary Care | Erika Ernst, | | | 2019 | Visit | | DO [address] | | | | | | [place] [address] | | | | | | [phone] | | | | | | | [...] [place] | | | | | | [address] | | | | | | [phone] | | | | | | | | +--------+ + + + + | 02/09/ | Office | Neurology | Dhara, | | | 2019 | Visit | | DWAINE Ross [address] [place], | | | | | | [place] [address] | | | | | | [phone] | | | | | | | | +--------+ + + + + documented as of this encounter Visit Diagnoses Not on filedocumented in this encounter"
--- OUTSIDE RECORDS SUMMARY | ~2019-09-30 | XMS | Encounter Summary ---
Demographics + + + | Address | [address] | | | [place] [address] | + + + | Home Phone [...] Team Providers + +------+ + | Care Offal Icer Poultry Name | Role | Phone | + +------+ + PCP | Unavailable | + +------+ + Encounter Details +--------+ + + + + | Date | Type | Department | Care Team | Description | +--------+ + + + + | [facility] Denise Mcgregor | | | 2017 | Encounter | [facility] | G, ELECTRONIC TRAIN CONTROL TECHNICIAN [address] | | | | | MEDICAL CLINIC [address] | [place] | | | | | [address] [facility], | [address] | | | | | [place] [address] | [phone] | | | | | [phone] | | | +--------+ + + + [...] | | | | | [place] [address] | | | | | | [phone] | | | | | | | | +--------+ + + + + | 10/30/ | Office | Primary Care | Erika Ernst, | | | 2019 | Visit | | DO [address] | | | | | | [place] [address] | | | | | | [phone] | | | | | | | [...] [place] | | | | | | [address] | | | | | | [phone] | | | | | | | | +--------+ + + + + | 02/09/ | Office | Neurology | Dhara, | | | 2020 | Visit | | [address] | | | | | | [address] [place], | | | | | | [place] [address] | | | | | | [phone] | | | | | | | | +--------+ + + + + documented as of this encounter Visit Diagnoses Not on filedocumented in this encounter"
--- OUTSIDE RECORDS SUMMARY | ~2019-09-30 | XMS | Encounter Summary ---
Demographics + + + | Address | [address] | | | [place] [address] | + + + | Home Phone [...] Team Providers + +------+ + | Care Canceling Machine Operator Name | Role | Phone | + +------+ + PCP | Unavailable | + +------+ + Encounter Details +--------+ + + + + | Date | Type | Department | Care Team | Description | +--------+ + + + + | 09/03/ | [facility] | Jessica Hoang, | | | 2012 | Encounter | [facility] [address] | DUMP ATTENDANT [address] | | | | | [place] | [place] | | | | | [place] | [address] | | | | | [address] | | | | | | [phone] | | | +--------+ + + + [...] | | | | | [place] [address] | | | | | | [phone] | | | | | | | | +--------+ + + + + | 10/30/ | Office | Primary Care | Erika Ernst, | | | 2019 | Visit | | DO [address] | | | | | | [place] [address] | | | | | | [phone] | | | | | | | [...] [place] | | | | | | [address] | | | | | | [phone] | | | | | | | | +--------+ + + + + | 02/09/ | Office | Neurology | Dhara, | | | 2020 | Visit | | [address]WA[address] | | | [address] [place], | | | | | | [place] [address] | | | | | | [phone] | | | | | | | | +--------+ + + + + documented as of this encounter Visit Diagnoses Not on filedocumented in this encounter"
--- OUTSIDE RECORDS SUMMARY | ~2019-09-30 | XMS | Encounter Summary ---
Demographics + + + | Address | [address] | | | [place] [address] | + + + | Home Phone [...] 2013 | Encounter | [facility] | [address] | | | | | C[address] | [place] | | | | | [place] | [address] | | | | | [address] | | | | | | [phone] | | | +--------+ + + + [...] [address] | | | | | | [phone] | | | | | | | | +--------+ + + + + | 10/30/ | Office | Primary Care | Erika Ernst, | | | 2019 | Visit | | DO [address] | | | | | | [place] [address] | | | | | | [phone] | | | | | | | [...] [place] | | | | | | [address] | | | | | | [phone] | | | | | | | | +--------+ + + + + | 02/09/ | Office | Neurology | Dhara, | | | 2020 | Visit | | [address] | | | [address] [place], | | | | | | [place] [address] | | | | | | [phone] | | | | | | | | +--------+ + + + + documented as of this encounter Visit Diagnoses Not on filedocumented in this encounter"
--- OUTSIDE RECORDS SUMMARY | ~2019-09-30 | XMS | Encounter Summary ---
Demographics + + + | Address | [address] | | | [place] [address] | + + + | Home Phone [...] Team Providers + +------+ + | Care Steel Melter Name | Role | Phone | + [...] [place] [facility] | Anastasia Alberto, | Results ([facility] to | | 2019 | | [facility] | [facility] [address] [facility] | [place], phone vm is | | | | WALK-IN CLINIC [address] | [place] [address] | clear now, please | | | | [address] [place], | [phone] | call again) | | | | [place] [address] | | | | | | [phone] | | | +--------+ + + + [...] | | | | | [place] [address] | | | | | | [phone] | | | | | | | | +--------+ + + + + | 10/30/ | Office | Primary Care | Erika Ernst, | | | 2019 | Visit | | DO [address] | | | | | | [place] [address] | | | | | | [phone] | | | | | | | [...] [place] | | | | | | [address] | | | | | | [phone] | | | | | | | | +--------+ + + + + | 02/09/ | Office | Neurology | Dhara, | | | 2020 | Visit | | [address] | | | | [address] [place], | | | | | | [place] [address] | | | | | | [phone] | | | | | | | | +--------+ + + + + documented as of this encounter Visit Diagnoses Not on filedocumented in this encounter"
--- OUTSIDE RECORDS SUMMARY | ~2019-09-30 | XMS | Encounter Summary ---
Demographics + + + | Address | [address] | | | [place] [address] | + + + | Home Phone [...] Providers + +------+ + | Care Finish Cleaner Name | Role | Phone | + +------+ + PCP | Unavailable | + +------+ + Encounter Details +--------+ + + + + | Date | Type | Department | Care Team | Description | +--------+ + + + + | 09/15/ | [facility] | [facility] | Erika Ernst, | | | 2014 | Encounter | [facility] | DO [address] | | | | | MEDICAL CLINIC [address] | [place] [place] [address] | | | | | [address] [facility], | [phone] | | | | | [place] [address] | | | | | | [phone] | | | +--------+ + + + [...] | | | | | [place] [address] | | | | | | [phone] | | | | | | | | +--------+ + + + + | 10/30/ | Office | Primary Care | Erika Ernst, | | | 2019 | Visit | | DO [address] | | | | | | [place] [address] | | | | | | [phone] | | | | | | | [...] [place] | | | | | | [address] | | | | | | [phone] | | | | | | | | +--------+ + + + + | 02/09/ | Office | Neurology | Dhara, | | | 2020 | Visit | | [address]WA[address] | | | [address] [place], | | | | | | [place] [address] | | | | | | [phone] | | | | | | | | +--------+ + + + + documented as of this encounter Visit Diagnoses Not on filedocumented in this encounter"
--- OUTSIDE RECORDS SUMMARY | ~2019-09-30 | XMS | Encounter Summary ---
Demographics + + + | Address | [address] | | | [place] [address] | + + + | Home Phone [...] Team Providers + +------+ + | Care Ranch Rider Name | Role | Phone | [...] | [address] | [facility] [place] | | | | | [place], [place] | [address] | | | | | [address] | [phone] | | | | | [phone] | | | +--------+ + + + [...] | | | | | [place] [address] | | | | | | [phone] | | | | | | | | +--------+ + + + + | 10/30/ | Office | Primary Care | Erika Ernst, | | | 2019 | Visit | | DO [address] | | | | | | [place] [address] | | | | | | [phone] | | | | | | | [...] [place] | | | | | | [address] | | | | | | [phone] | | | | | | | | +--------+ + + + + | 02/09/ | Office | Neurology | Dhara, | | | 2020 | Visit | | [address]WA[address] | | | | [address] [place], | | | | | | [place] [address] | | | | | | [phone] | | | | | | | | +--------+ + + + + documented as of this encounter Visit Diagnoses Not on filedocumented in this encounter"
--- OUTSIDE RECORDS SUMMARY | ~2019-09-30 | XMS | Encounter Summary ---
Demographics + + + | Address | [address] | | | [place] [address] | + + + | Home Phone [...] Team Providers + +------+ + | Care Briquette Machine Operator Helper Name | Role | Phone | + +------+ + | Erika Ernst DO | PCP | | + +------+ + Encounter Details +--------+ + + + + | Date | Type | Department | Care Team | Description | +--------+ + + + + | 10/17/ | [facility] [place] | Erika Ernst, | Screening for breast | | 2019 | Encounter | [facility] | DO [address] | cancer | | | | Medical [place] | [place] [address] | | | | | Mammography [address] | [phone] | | | | | [address] [place] | | | | | | [place], [place] | | | | | | [address] | | | | | | [phone] | | | +--------+ + + + [...] | | | | | [place] [address] | | | | | | [phone] | | | | | | | | +--------+ + + + + | 10/30/ | Office | Primary Care | Erika Ernst, | | | 2019 | Visit | | DO [address] | | | | | | [place] [address] | | | | | | [phone] | | | | | | | [...] [place] | | | | | | [address] | | | | | | [phone] | | | | | | | | +--------+ + + + + | 02/09/ | Office | Neurology | Dhara, | | | 2019 | Visit | | [address] | | | | | [address] [place], | | | | | | [place] [address] | | | | | | [phone] | | | | | | | [...]
--- OUTSIDE RECORDS SUMMARY | ~2019-09-30 | XMS | Encounter Summary ---
Demographics + + + | Address | [address] | | | [place] [address] | + + + | Home Phone [...] Providers + +------+ + | Care Test Automation Architect Name | Role | Phone | [...] of | | 2019 | Visit | [facility] | PLUMBING AND HEATING MECHANIC [address] [facility] | forearm, right, | | | | WALK[facility]IN CLINIC [address] | [facility] [place] [address] | initial encounter | | | | [address] [facility], | [phone] | (Primary Dx) | | | | [place] [address] | | | | | | [phone] | | | +--------+---------+ + + + [...] as long as directed by your [facility]. ? If you were given a [...] reapply it to the wound as directed. [place] r the wound with a fresh nonstick [...] part near the wound Date Last Reviewed: 12/02/[id number] [employer]. [address] [place] [address]. All righ ts reserved. This information is [...] mouth. Once a week Cholecalciferol (VITAMIN D3) 00225 units TABS Take 1 tablet by mouth [...] your PCP. Electronically Signed by CAITIE WoodruffP3/14:37 [facility] documented in this en [...] | | | | | [place] [address] | | | | | | [phone] | | | | | | | | +--------+ + + + + | 10/30/ | Office | Primary Care | Erika Ernst, | | | 2019 | Visit | | DO [address] | | | | | | [place] [address] | | | | | | [phone] | | | | | | | [...] [place] | | | | | | [address] | | | | | | [phone] | | | | | | | | +--------+ + + + + | 02/09/ | Office | Neurology | Dhara, | | | 2019 | Visit | | [address]WA[address] | | | | [address] [place], | | | | | | [place] [address] | | | | | | [phone] | | | | | | | | +--------+ + + + + documented as of this encounter Visit Diagnoses + + | Diagnosis | + + | Excoriation of forearm, right, initial encounter - Primary | + + documented in this encounter
--- OUTSIDE RECORDS SUMMARY | ~2019-09-30 | XMS | Encounter Summary ---
Demographics + + + | Address | [address] | | | [place] [address] | + + + | Home Phone [...] Team Providers + +------+ + | Care Bleaching Supervisor Name | Role | Phone | [...] | 2019 | | [facility] | LOAN AUDITOR | | | | | CENTER [address] | | | | | | [place] | | | | | | [address] | | | | | | [phone] | | | +--------+ + + + [...] | | | | | [place] [address] | | | | | | [phone] | | | | | | | | +--------+ + + + + | 10/30/ | Office | Primary Care | Erika Ernst, | | | 2019 | Visit | | DO [address] | | | | | | [place] [address] | | | | | | [phone] | | | | | | | [...] [place] | | | | | | [address] | | | | | | [phone] | | | | | | | | +--------+ + + + + | 02/09/ | Office | Neurology | Dhara, | | | 2019 | Visit | | [address] | | | | [address] [place], | | | | | | [place] [address] | | | | | | [phone] | | | | | | | | +--------+ + + + + documented as of this encounter Visit Diagnoses Not on filedocumented in this encounter"
--- OUTSIDE RECORDS SUMMARY | ~2019-09-30 | XMS | Encounter Summary ---
Demographics + + + | Address | [address] | | | [place] [address] | + + + | Home Phone [...] Providers + +------+ + | Care Exercise Specialist Name | Role | Phone | [...] Therapy / | Acute pain | Erika Nelson, DO | Therapy Pt | | | Required | Rehabilitatio | of right | [address] | [address] | | | | n | knee | [place] | [place], | | | | | Procedures | [place] [address] | [place] [address] | | | | | PT EVAL | Phone: | Phone: | | | | | | [phone] | [phone] | | | | | | Fax: | Fax: | | | | | | [phone] | [phone] | +--------+ + + + + + Encounter Details +--------+ + + + + | Date | Type | Department | Care Team | Description | +--------+ + + + + | 12/13/ | Hospital | [facility] [facility] | Erika Ernst, | Acute pain of right | | 2019 | Encounter | HOSPITAL THERAPY PT | DO [address] [place] | knee | | | | [address] [place] | [place] [address] | | | | | [place], [place] | [phone] | | | | | [address] | | | | | | [phone] | Julia Fisher, | | | | [...] | 11/26/19 | | | (VITAMIN D3) 90700 | mouth Once a week | tablet | | 19 | 9 | | units TABS | for 16 doses. | | | | | + + + +---------+ + + | D3-50 15905 units | | | 0 | 12/13/19 [...] encounter Progress Notes Julia Fisher, PT - 12/13/2018 5:27 PM PDT Reference/Auth Number: (if continued care) [x] PT [] OT Date of Submission: 12/13/2018 ONLY USE FOR MUSCULOSKELETAL CONDITIONS RENDERING PROVIDER INFORMATION All sections must be completed Therapist First Name, Last Name Julia Fisher, PT Facility Name [facility] Billing Provider TIN [id number] Provider Address, [facility] Code [address] [place] [id number] Billing Provider PATIENT INFORMATION All sections must be completed Patient Last Name, First Name ANDREA SUH Date of 1990 Mailing Address [address] [place] [address] [place] [address] Coverage Information Payor/Plan Subscriber Name Rel Member # Group # [id number]* ANDREA SUH CLA* [id number] [address] [id number] CLINICAL INFORMATION Primary ICD/Diagnosis Code: Encounter Diagnoses Code Name Primary? M25.561 Acute pain of right knee Start Date of this Request: 12/13/2018 Member treated in last 60 days no Member requires treatment for a different condition no Additional care for same condition treated in last 60 days no Date of initial eval 12/13/2018 Date of Onset: 10/15/2018 Date of current findings: 12/13/2018 Fabricating a splint/orthotic or developing a home exercise program only? no If yes, you are not required to complete remaining palmer Primary area treated: R knee [] Cervical / Upper Thoracic Spine [] Shoulder / Arm [] Elbow / Wrist / Forearm [] Lower Thoracic / Lumbosacral Spine [] Hip / Thigh [x] Knee [] Ankle / Foot / Leg Comorbidities: Overweight>100 lbs, Rheumatoid arthritis, CVA, Multiple Sclerosis, Diabetes and None Post-surgical treatment no Type of Surgery: Past Surgical History: Procedure Laterality Date EYE SURGERY RIGHT KIDNER PROCEDURE 01/20/2016 Surgeon: Fani Mahajan MD; Location: [facility] TENDON RELEASE TONSILLECTOMY WISDOM TOOTH EXTRACTION For spinal surgery indicate levels Cervical: NA Lumbar: NA Range of motion (ROM) for the primary area treated within normal limits? yes If no, ROM peg surements are required below. Enter ONLY those ROM measurements for the primary area treated that are not WNL Lower Extremities Lower Extremities Note: BLE WNL and painfree with P/AROM and overpressure. (Painful L ankle ROM from unrelated injury) Is strength for the primary area treated 4/5 or greater? no If no, strength measureme nts are required Enter ONLY those strength measurements for the primary area treated. LE Manual Muscle Testing (MMT) Gross strength R LE: 5/5 normal, right (except Knee flexion 4+/5, hip abduction 3+/5, hip e xtension 3+/5) Gross strength L LE: 5/5 normal, left (except ankle N/T,hip abduction 3+/5, hip extension 3 +/5) Change in strength since start of care: show no change Pain level R anterior knee 0 /10 Change in pain since start of care: show no change Additional signs/symptoms: Instabilityno Labral tearno Radicular/neural signs present below the elbow or kneeno Osteochondral defectno Cervical/thoracic fractureno As a result of the condition presently being treated, does your patient continue to demonst rate (Choose all that apply):* [] Loss of 10 degrees of more of knee extension OR less than 5 degrees of ankle dorsiflexi on [] Laxity of the ankle or distal tibial-fibular joint [x] Measurable (less than 4/5) weakness of hip joint in at least 2 of the following motion s (Abduction, Flexion, External Rotation, Extension) [] Patient has post-surgery swelling of grade 2 or more [] Tinetti Gait/Balance score < 24 OR Ponce Balance test < 40 OR TUG test > 13.5 [] None of the above Additional information: Lower Extremity Functional Scale Score (Calculated): 74 Patient Specific Functional Scale: Score 3 activities that the patient has the most difficu lty performing. 0 is unable to perform, 10 is no difficulty. Activity 1: PT: Hiking on even and uneven surfaces Level: PT: Activity 2: PT: Level: PT: 10 Activity 3: PT: Level: PT: /10 Percent of improvement since start of care: eval today Was treatment provided for a second body part? no Submit a second Treatment Request for the additional area of treatment. Fax both forms t ogether. ormJulia nelson PT - 12/13/2018 4:32 PM PDT [facility] PT [address] [place] [address] Physical Therapy Initial Assessment Date: 12/13/2018 Patient Information Patient Name: Andrea Suh Date of : 1990 Age: 28 y.o. History Problem Acute Pain of Right Knee Mechanism of injury: Trauma History of symptoms: Pt is a 28 y/o female who reports increased R knee pain that occurred after falling on her knee. Initially she had a lot of pain in her R knee but she started wea ring her knee brace and stretching so over the past few weeks/months since it occurred she's had improvement in pain. If she is able to stretch then she doesn't have any issue but if h er knee feels more stiff then it's harder to do stairs. "I've always had bad knees" which is she has a brace. Previous level of function and limitations: Indep Work status:currently employed but dealing with worker's comp issues for that given injury to ankle last year. Living situation: In apt Social History Social History Marital status: Single Spouse name: N/A Number of children: N/A Years of education: N/A Social History Main Topics Smoking status: Never Smoker Smokeless tobacco: Never Used Alcohol use No Drug use: No Sexual activity: Yes control/ protection: Condom Other Topics Concern Not on file Social History Narrative No narrative on file Encounter Diagnoses Code Name Primary? M25.561 Acute pain of right knee Date of Onset: 10/15/2018 Referring Provider: Erika Ernst DO No history [...] Maternal Grandmother Heart attack Maternal Aunt [place] Developmental History Allergies Allergen Reactions Escitalopram Palpitations Latex Rash Hydrocodone Hives Norethindrone Oxycodone Uncoded Nonscreenable Allergen Other (See Comments) Other reaction(s): Proclivity to C-diff with certain antibiotics Adhesive & Tape Rash Prior Treatment: None for this condition in last 60 days. Pt has rec'd PT for L ankle sprai n from worker's comp as well as OT for R wrist. Objective Pain Assessment: Pain Rating Pre Assessment: 0 Pain Rating Post Assessment: 0 Location: R anterior knee Standardized Tests: Lower Extremity Functional Scale (LEFS) [...] little bit of difficulty Walking a mile: 3 - A little bit of difficulty Going up or down 10 stairs (about 1 flight of stairs): 3 - A little bit of difficulty Standing for 1 hour: 4 - No difficulty Sitting for 1 hour: 4 - No difficulty Running on even ground: 4 - No difficulty Running on uneven ground: 4 - No difficulty Making sharp turns while running fast: 4 - No difficulty Hoppin - No difficulty Rolling over in bed: 4 - No difficulty Lower Extremity Functional Scale Score (Calculated): 74 Range of Motion (measured in degrees): Lower Extremities Lower Extremities Note: BLE WNL and painfree with P/AROM and overpressure. (Painful L ankle ROM from unrelated injury) Strength: LE Manual Muscle Testing (MMT) Gross strength R LE: 5/5 normal, right (except Knee flexion 4+/5, hip abduction 3+/5, hip e xtension 3+/5) Gross strength L LE: 5/5 normal, left (except ankle N/T,hip abduction 3+/5, hip extension 3 +/5) Strength Gross strength R LE: 5/5 normal, right (except Knee flexion 4+/5, hip abduction 3+/5, hip e xtension 3+/5) Gross strength L LE: 5/5 normal, left (except ankle N/T,hip abduction 3+/5, hip extension 3 +/5) Joint Mobility: LLE Joint Mobility L Patella Medial [place]: normal L Patella Lateral [place]: normal L Patella Inferior [place]: normal L Patella Superior [place]: normal RLE Joint Mobility R Patella Medial [place]: normal R Patella Lateral [place]: normal R Patella Inferior [place]: normal R Patella Superior [place]: normal Special Tests: Lower Extremity Tests Lower Extremity Tests Note: Pt is of heavier stature, natural stance is B knee genu recurva ayla. SLS approx 10sec bilat no increase in knee pain - limited with stability secondary to h x of B ankle instability Knee Special Tests L Anterior Drawer Test (ACL Integrity): negative R Anterior Drawer Test (ACL Integrity): negative L Posterior Drawer Test (PCL Integrity): negative R Posterior Drawer Test (PCL Integrity): negative L Mandy Test (Meniscal Pathology): negative R Mandy Test (Meniscal Pathology): negative L Posterior Sag Sign (PCL Integrity): negative R Posterior Sag Sign (PCL Integrity): negative L Knee Valgus Stress Test (Full Ext): negative R Knee Valgus Stress Test (Full Ext): negative L Knee Valgus Stress Test (30 Deg Flex): negative R Knee Valgus Stress Test (30 Deg Flex): negative L Knee Varus Stress Test (Full Ext): negative R Knee Varus Stress Test (Full Ext): negative L Knee Varus Stress Test (30 Deg Ext): negative R Knee Varus Stress Test (30 Deg Ext): negative Functional Squat Assessment Functional Squat Assessment Note: Painfree, wide NIKOLE, 50% depth, mild LOB with attempt to i ncrease depth. Today's Treatment Patient Name: Andrea Suh/: 1990/ Start Time: 1630 Stop time: 1710 Duration: 40 minutes Timed Treatment Codes: 15 minutes # of PT Visits: 1 Visit Summary: S: Evaluation complete - see note. A: Good return demo of initial HEP withou t increase in pain. Handout provided. Next Visit Information: Review HEP. Progress Hip/quad/HS loading for home program. Patient/Caregiver Education Learner: Patient Readiness: Acceptance Method: Explanation, Demonstration, Handout Response: Verbalizes Understanding, Demonstrated Understanding Therapy Interventions HEP: HEP: Wall sits [id number] holds, Bridging 3 x 10 reps, Side steps GTB at ankles 3 x 30 . PT Interventions: Intervention #1 PT INTERVENTION 1: TE (15min) Wall sits [id number] holds, Bridging x 10 reps, Side steps GTB at ankles x 30 B Assessment Initial Evaluation 12/13/18: Patient is a 28 [...] recent significant L ankle sprain and obesity. Rehabilitation potential: Patient demonstrates good potential to achieve established goals and good potential to achieve prior status to address the documented impairments by particip ating in skilled physical therapy services. Goals: Patient Reported Outcome Goals Patient Reported Outcome Goals: PSFS Patient Specific Functional Scale Goal 1: Hiking on even and uneven surfaces Patient Specific Functional Scale Goal 1 Status: 5 Patient Specific Functional Scale Goal 1 Status Comment: Ongoing, pt limited by ankle and k nee - reports approx 50% normal OP PT Goals OP PT Goals: Goal 1, Goal 2 Goal 1: Patient will demonstrate I with advanced HEP and no pain in order to improve functi onal outcomes with physical therapy. Goal 1 Status: ongoing Goal 2: Patient will improve B hip strength to 4+/5 or greater Goal 2 Status: ongoing Plan Date of Onset: 10/15/2018 Start of Care Date: 12/13/2018 Requested # of Visits: 6 visits 1x/week for 8 weeks Certification From: 12/13/2018 Certification To: 02/07/2019 Treatment Plan/Interventions PT EvaluationPT Re-[id number] - Therapeutic [id number] - Neuromuscular Reeducation9 7116 - Gait [id number] - Therapeutic [id number] - Aquatic Therapy/[id number] - U [id number] - Electrical Stimulation, [id number] - Electrical Stimulation, Attended6 4550 - TENS Application/Asytpplistk76643 - Manual Therapy Patient and/or family has indicated understanding of treatment needs and actively participa everardo in the creation of this plan for care. Electronically signed by: Julia Fisher, PT, 12/13/2018 17:31 Patient Name: Andrea King Angeli/: 1990/ documented [...] | | | | | [place] [address] | | | | | | [phone] | | | | | | | | +--------+ + + + + | 10/30/ | Office | Primary Care | Erika Ernst, | | | 2019 | Visit | | DO [address] [place] | | | | | | [place] [address] | | | | | | [phone] | | | | | | | [...] [place] | | | | | | [address] | | | | | | [phone] | | | | | | | | +--------+ + + + + | 02/09/ | Office | Neurology | Dhara, | | | 2019 | Visit | | DWAINE Ross [address] [place], | | | | | | [place] [address] | | | | | | [phone] | | | | | | | | +--------+ + + + + + + +--------+ + + | Name | Type | Priori | Associated Diagnoses | Order Schedule | | | | ty | | | + + +--------+ + + | * [facility] | Outpatient | Routin | Acute pain of | Ordered: 11/08/2018 | | [facility] | Referral | e | right knee | | | - AMB Referral | | | | | + + +--------+ + + documented as of this encounter Visit Diagnoses + + | Diagnosis | + + | Acute pain of right knee | + + documented in this encounter
--- OUTSIDE RECORDS SUMMARY | ~2019-09-30 | XMS | Encounter Summary ---
Demographics + + + | Address | [address] | | | [place] [address] | + + + | Home Phone [...] Providers + +------+ + | Care Pipe Stress Engineer Name | Role | Phone | [...] | | | | s (de | [place], [place] | [place] [address] | | | | | quervain) | [address] | Phone: | | | | | Pain in | Phone: | [phone] | | | | | right wrist | [phone] | Fax: | | | | | Procedures | Fax: | [phone] | | | | | OT TREAT | [phone] | | +--------+--------+ + + + + [...] | | [address] | [place] [address] | wrist pain | | | | [place] | [phone] | | | | | [address] | | | | | | [phone] | Milla Gracia, OT | | +--------+ [...] Gracia OT - 08/10/2018 10:50 AM PST [facility] OT [address] [place] [address] Occupational Therapy Daily Treatment Note Date: 08/09/2018 [...] wrist and deviating to ulnar side to tow picker cup. Pt reporting 8/10 pain when she went to tow picker a cup yesterday A: Focus of [...] in 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, and edge grinder machine and pinch weakness i n the right [...] | | | | | [place] [address] | | | | | | [phone] | | | | | | | | +--------+ + + + + | 10/30/ | Office | Primary Care | Erika Ernst, | | | 2019 | Visit | | DO [address] [place] | | | | | | [place] [address] | | | | | | [phone] | | | | | | | [...] [place] | | | | | | [address] | | | | | | [phone] | | | | | | | | +--------+ + + + + | 02/09/ | Office | Neurology | Dhara, | | | 2020 | Visit | | [address]WA[address] Ross [address] [place], | | | | | | [place] [address] | | | | | | [phone] | | | | | | | | +--------+ + + + + documented as of this encounter Visit Diagnoses + + | Diagnosis | + + | Radial styloid tenosynovitis | + + | Right wrist pain Pain in joint, forearm | + + documented in this encounter"
--- OUTSIDE RECORDS SUMMARY | ~2019-09-30 | XMS | Encounter Summary ---
Demographics + + + | Address | [address] | | | [place] [address] | + + + | Home Phone [...] Team Providers + +------+ + | Care Overlock Collar Setter Name | Role | Phone | + +------+ + PCP | Unavailable | + +------+ + Encounter Details +--------+ + + + + | Date | Type | Department | Care Team | Description | +--------+ + + + + | 05/20/ | [facility] | [facility] | Amaya Varner NP | | | 2015 | Encounter | [facility] | [address] | | | | | [facility] [address] | [place], [place] | | | | [address] [place], | [address] | | | | | [place] [address] | [phone] | | | | | [phone] | | | +--------+ + + + [...] | | | | | [place] [address] | | | | | | [phone] | | | | | | | | +--------+ + + + + | 10/30/ | Office | Primary Care | Erika Ernst, | | | 2019 | Visit | | DO [address] [place] | | | | | | [place] [address] | | | | | | [phone] | | | | | | | [...] [place] | | | | | | [address] | | | | | | [phone] | | | | | | | | +--------+ + + + + | 02/09/ | Office | Neurology | Dhara, | | | 2020 | Visit | | DWAINE Ross [address] [place], | | | | | | [place] [address] | | | | | | [phone] | | | | | | | | +--------+ + + + + documented as of this encounter Visit Diagnoses Not on filedocumented in this encounter"
--- OUTSIDE RECORDS SUMMARY | ~2019-09-30 | XMS | Encounter Summary ---
Demographics + + + | Address | [address] | | | [place] [address] | + + + | Home Phone [...] Providers + +------+ + | Care Blending Line Attendant Name | Role | Phone | [...] [address] | [place] [address] | | | | | [place], [place] | [phone] | | | | | [address] | | | | | | [phone] | | | +--------+ + + + [...] | | | | | [place] [address] | | | | | | [phone] | | | | | | | | +--------+ + + + + | 10/30/ | Office | Primary Care | Erika Ernst, | | | 2019 | Visit | | DO [address] [place] | | | | | | [place] [address] | | | | | | [phone] | | | | | | | [...] [place] | | | | | | [address] | | | | | | [phone] | | | | | | | | +--------+ + + + + | 02/09/ | Office | Neurology | Dhara, | | | 2019 | Visit | | DWAINE Ross [address] [place], | | | | | | [place] [address] | | | | | | [phone] | | | | | | | | +--------+ + + + + documented as of this encounter Visit Diagnoses Not on filedocumented in this encounter"
--- OUTSIDE RECORDS SUMMARY | ~2019-09-30 | XMS | Encounter Summary ---
Demographics + + + | Address | [address] | | | [place] [address] | + + + | Home Phone [...] | | | to excess | [place] [address] | [place] | | | | | calories | Phone: | [phone] | | | | | without | [phone] | Phone: | | | | | serious | Fax: | [phone] | | | | | comorbidity | [phone] | Fax: | | | | | with body | | [phone] | | | | | mass index [...] | | | | | | | [place] [facility] | | | | | | [...] | 03/15/ | Orders Only | [place] [facility] | Erika Ernst, | Class 3 severe | | 2019 | | [facility] | DO [address] | obesity due to | | | | MEDICAL [facility] [address] | [place] [address] | excess calories | | | | [address] [place], | [phone] | without serious | | | | [place] [address] | | comorbidity with | | | | [phone] | | body mass index | | [...] | | | | | [place] [address] | | | | | | [phone] | | | | | | | | +--------+ + + + + | 10/30/ | Office | Primary Care | Erika Ernst, | | | 2019 | Visit | | DO [address] [place] | | | | | | [place] [address] | | | | | | [phone] | | | | | | | [...] [place] | | | | | | [address] | | | | | | [phone] | | | | | | | | +--------+ + + + + | 02/09/ | Office | Neurology | Dhara, | | | 2019 | Visit | | DWAINE Ross [address] [place], | | | | | | [place] [address] | | | | | | [phone] | | | | | | | [...] | | | | 59.9 in adult ([facility]) | | | | | | Essential | | | | | | hypertension | | + + +--------+ + + documented as of this encounter Visit Diagnoses + + | Diagnosis | + + | Class 3 severe obesity due to excess calories without serious comorbidity with body | | mass index (BMI) of 50.0 to 59.9 in adult ([facility]) - Primary | + + | Essential hypertension Unspecified essential hypertension | + + documented in this encounter"
--- OUTSIDE RECORDS SUMMARY | ~2019-09-30 | XMS | Encounter Summary ---
Demographics + + + | Address | [address] | | | [place] [address] | + + + | Home Phone [...] Team Providers + +------+ + | Care Advertiser Name | Role | Phone | + [...] | [place], [place] | [place] [address] | | | | | [address] | [phone] | | | | | [phone] | | | +--------+ + + + [...] | | | | | [place] [address] | | | | | | [phone] | | | | | | | | +--------+ + + + + | 10/30/ | Office | Primary Care | Erika Ernst, | | | 2019 | Visit | | DO [address] | | | | | | [place] [address] | | | | | | [phone] | | | | | | | [...] [place] | | | | | | [address] | | | | | | [phone] | | | | | | | | +--------+ + + + + | 02/09/ | Office | Neurology | Dhara, | | | 2019 | Visit | | DWAINE Ross [address] [place], | | | | | | [place] [address] | | | | | | [phone] | | | | | | | | +--------+ + + + + documented as of this encounter Visit Diagnoses Not on filedocumented in this encounter"
--- OUTSIDE RECORDS SUMMARY | ~2019-09-30 | XMS | Encounter Summary ---
Demographics + + + | Address | [address] | | | [place] [address] | + + + | Home Phone [...] Providers + +------+ + | Care Environmental Planning Engineer Name | Role | Phone [...] | | | | [place] | [address] | | | | | [address] | [phone] | | | | | [phone] | | | +--------+ + + + [...] | | | | | [place] [address] | | | | | | [phone] | | | | | | | | +--------+ + + + + | 10/30/ | Office | Primary Care | Erika Ernst, | | | 2019 | Visit | | DO [address] [place] | | | | | | [place] [address] | | | | | | [phone] | | | | | | | [...] [place] | | | | | | [address] | | | | | | [phone] | | | | | | | | +--------+ + + + + | 02/09/ | Office | Neurology | Dhara, | | | 2019 | Visit | | Cody, SLURRY CONTROL OPERATOR HELPER [address] | | | | | | [address] [facility], | | | | | | [place] [address] | | | | | | [phone] | | | | | | | [...] definite | | acute finding identified. Job#: [id number] Read By: ANJELICA CHAMBERS MD | | [...]
--- OUTSIDE RECORDS SUMMARY | ~2019-09-30 | XMS | Encounter Summary ---
Demographics + + + | Address | [address] | | | [place] [address] | + + + | Home Phone [...] Team Providers + +------+ + | Care Short Goods Drier Name | Role | Phone | [...] | | | | [place] | [address] | | | | | [address] | [phone] | | | | | [phone] | | | +--------+ + + + [...] | | | | | [place] [address] | | | | | | [phone] | | | | | | | | +--------+ + + + + | 10/30/ | Office | Primary Care | Erika Ernst, | | | 2019 | Visit | | DO [address] [place] | | | | | | [place] [address] | | | | | | [phone] | | | | | | | [...] [place] | | | | | | [address] | | | | | | [phone] | | | | | | | | +--------+ + + + + | 02/09/ | Office | Neurology | Dhara, | | | 2019 | Visit | | Cody, SET UP MECHANIC CROWN ASSEMBLY MACHINE [address] | | | | | | [address] [facility], | | | | | | [place] [address] | | | | | | [phone] | | | | | | | [...]
--- OUTSIDE RECORDS SUMMARY | ~2019-09-30 | XMS | Encounter Summary ---
Demographics + + + | Address | [address] | | | [place] [address] | + + + | Home Phone [...] Providers + +------+ + | Care Senior Attorney Name | Role | Phone | + [...] [address] | | | | | [place] [address] | | | | | | [phone] | | | +--------+ + + + [...] | | | | | [place] [address] | | | | | | [phone] | | | | | | | | +--------+ + + + + | 10/30/ | Office | Primary Care | Erika Ernst, | | | 2019 | Visit | | DO [address] [place] | | | | | | [place] [address] | | | | | | [phone] | | | | | | | [...] [place] | | | | | | [address] | | | | | | [phone] | | | | | | | | +--------+ + + + + | 02/09/ | Office | Neurology | Dhara, | | | 2020 | Visit | | DWAINE Ross [address] [place], | | | | | | [place] [address] | | | | | | [phone] | | | | | | | | +--------+ + + + + documented as of this encounter Visit Diagnoses Not on filedocumented in this encounter"
--- OUTSIDE RECORDS SUMMARY | ~2019-09-30 | XMS | Encounter Summary ---
Demographics + + + | Address | [address] | | | [place] [address] | + + + | Home Phone [...] Team Providers + +------+ + | Care Physics And Astronomy Professor Name | Role | Phone | [...] | Results | | 2019 | | [facility] | DO [address] | | | | | [facility] [address] | [place] [address] | | | | | [address] [place], | [phone] | | | | | [place] [address] | | | | | | [phone] | | | +--------+ + + + [...] | | | | | [place] [address] | | | | | | [phone] | | | | | | | | +--------+ + + + + | 10/30/ | Office | Primary Care | Erika Ernst, | | | 2019 | Visit | | DO [address] | | | | | | [place] [address] | | | | | | [phone] | | | | | | | [...] [place] | | | | | | [address] | | | | | | [phone] | | | | | | | | +--------+ + + + + | 02/09/ | Office | Neurology | Dhara, | | | 2019 | Visit | | [address] | | | | | | [address] [place], | | | | | | [place] [address] | | | | | | [phone] | | | | | | | | +--------+ + + + + documented as of this encounter Visit Diagnoses Not on filedocumented in this encounter"
--- OUTSIDE RECORDS SUMMARY | ~2019-09-30 | XMS | Encounter Summary ---
Demographics + + + | Address | [address] | | | [place] [address] | + + + | Home Phone [...] Providers + +------+ + | Care Corporate Giving Manager Name | Role | Phone | + +------+ + | Erika Ernst DO | PCP | | + +------+ + Encounter Details +--------+ + + + + | Date | Type | Department | Care Team | Description | +--------+ + + + + | [facility] [place] [facility] | Erika Ernst, | Acute right ankle | | 2019 | Encounter | [facility] X[facility] | DO [address] | pain | | | | [address] | [place] [address] | | | | | [place], [place] | [phone] | | | | | [address] | | | | | | [phone] | | | +--------+ + + + [...] | 04/12/20 | | | (VITAMIN D3) 93057 | mouth Once a week | tablet [...] | | | | | [place] [address] | | | | | | [phone] | | | | | | | | +--------+ + + + + | 10/30/ | Office | Primary Care | Erika Ernst, | | | 2019 | Visit | | DO [address] | | | | | | [place] [address] | | | | | | [phone] | | | | | | | [...] [place] | | | | | | [address] | | | | | | [phone] | | | | | | | | +--------+ + + + + | 02/09/ | Office | Neurology | Dhara, | | | 2020 | Visit | | [address] | | | | | | [address] [place], | | | | | | [place] [address] | | | | | | [phone] | | | | | | | [...]
--- OUTSIDE RECORDS SUMMARY | ~2019-09-30 | XMS | Encounter Summary ---
Demographics + + + | Address | [address] | | | [place] [address] | + + + | Home Phone [...] Team Providers + +------+ + | Care Structural Designer Name | Role | Phone | [...] | | | of left | [place] [address] | [address] | | | | | ankle, | Phone: | Phone: | | | | | subsequent | [phone] | [phone] | | | | | encounter | Fax: | Fax: | | | | | Procedures | [phone] | [phone] | | | | | MRI Ankle [...] | | | of left | [place] [address] | [address] | | | | | ankle, | Phone: | Phone: | | | | | subsequent | [phone] | [phone] | | | | | encounter | Fax: | Fax: | | | | | Procedures | [phone] | [phone] | | | | | MRI Ankle [...] | [address] | [place] [address] | ligament of left | | | | [place], [place] | [phone] | ankle, subsequent | | | | [address] | | encounter | | | | [phone] | | | +--------+ + + + [...] | 19 | 9 | | [facility]) | | | | | | | [...] | | | | | [place] [address] | | | | | | [phone] | | | | | | | | +--------+ + + + + | 10/30/ | Office | Primary Care | Erika Ernst, | | | 2019 | Visit | | DO [address] | | | | | | [place] [address] | | | | | | [phone] | | | | | | | [...] [place] | | | | | | [address] | | | | | | [phone] | | | | | | | | +--------+ + + + + | 02/09/ | Office | Neurology | Dhara, | | | 2019 | Visit | | [address] | | | | | | [address] [place], | | | | | | [place] [address] | | | | | | [phone] | | | | | | | [...]
--- OUTSIDE RECORDS SUMMARY | ~2019-09-30 | XMS | Encounter Summary ---
Demographics + + + | Address | [address] | | | [place] [address] | + + + | Home Phone [...] Providers + +------+ + | Care Gang Saw Operator Name | Role | Phone [...] | | | | [place] | [place] [address] | [place] | | | | | obesity due | Phone: | [phone] | | | | | to excess | [phone] | Phone: | | | | | calories | Fax: | [phone] | | | | | without | [phone] | Fax: | | | | | serious | | [phone] | | | | | comorbidity | [...] | | | | | [place] [facility] | | | | | | | THER, 1ST, | | | | | | | INDIV, EA 15 | | | | | | | MIN [place] [facility] | | | | | [...] | | | | Procedures | [place] [address] | [place] [address] | | | | | PT EVAL | Phone: | Phone: | | | | | | [phone] | [phone] | | | | | | Fax: | Fax: | | | | | | [phone] | [phone] | +--------+ + + + + + [...] right | | 2019 | Visit | [facility] | DO [address] | knee (Primary Dx); | | | | MEDICAL CLINIC [address] | [place] [address] | Essential | | | | [address] [place], | [phone] | hypertension; Class | | | | [place] [address] | | 3 severe obesity due | | | | [phone] | | to excess calories | | [...] is here today to FU on a [facility] visit for a fall at [employer] [facility] ( she does not work there) where she was eating at 10 PM and slipped on the floor sofía g on the right knee. States has some intermittent pain still but no redness, bruising or wea kness. She had normal Xray done per the [facility]. She would like PT to take [...] pain of right knee * [place] [facility] Ref[facility] 2. Essential hypertension * [place] [facility] - AMB Referral 3. Class 3 severe obesity due to excess calories without serious comorbidity with body mass index (BMI) of 50.0 to 59.9 in adult (HCC) * [place] [facility] Nutrition [facility] - AMB Referral Plan: Have [...] | | | | | [place] [address] | | | | | | [phone] | | | | | | | | +--------+ + + + + | 10/30/ | Office | Primary Care | Erika Ernst, | | | 2019 | Visit | | DO [address] | | | | | | [place] [address] | | | | | | [phone] | | | | | | | [...] [place] | | | | | | [address] | | | | | | [phone] | | | | | | | | +--------+ + + + + | 02/09/ | Office | Neurology | Dhara, | | | 2019 | Visit | | [address] | | | | | | [address] [place], | | | | | | [place] [address] | | | | | | [phone] | | | | | | | [...]
--- OUTSIDE RECORDS SUMMARY | ~2019-09-30 | XMS | Encounter Summary ---
Demographics + + + | Address | [address] | | | [place] [address] | + + + | Home Phone [...] Providers + +------+ + | Care Field Health Officer Name | Role | Phone | [...] | | | [place], [place] | [id number] | | | | | [address] | | | | | | [phone] | | | +--------+ + + + [...] | Visit | | DO [address] | | | | | | [place] [address] | | | | | | [phone] | | | | | | | | +--------+ + + + + | 10/30/ | Office | Primary Care | Erika Ernst, | | | 2019 | Visit | | DO [address] [facility] [address] | | | | | | [place] [address] | | | | | | [phone] | | | | | | | [...] [place] | | | | | | [address] | | | | | | [phone] | | | | | | | | +--------+ + + + + | 02/09/ | Office | Neurology | Dhara, | | | 2019 | Visit | | [address] | | | | | | [address] [place], | | | | | | [place] [address] | | | | | | [phone] | | | | | | | | +--------+ + + + + documented as of this encounter Visit Diagnoses Not on filedocumented in this encounter"
--- OUTSIDE RECORDS SUMMARY | ~2019-09-30 | XMS | Encounter Summary ---
Demographics + + + | Address | [address] | | | [place] [address] | + + + | Home Phone [...] Providers + +------+ + | Care Powder And Primer Canning Leader Name | Role | Phone | [...] [address] | [place] [address] | | | | | [place], [place] | [phone] | | | | | [address] | | | | | | [phone] | | | +--------+ + + + [...] | | | | | [place] [address] | | | | | | [phone] | | | | | | | | +--------+ + + + + | 10/30/ | Office | Primary Care | Erika Ernst, | | | 2019 | Visit | | DO [address] | | | | | | [place] [address] | | | | | | [phone] | | | | | | | [...] [place] | | | | | | [address] | | | | | | [phone] | | | | | | | | +--------+ + + + + | 02/09/ | Office | Neurology | Dhara, | | | 2019 | Visit | | [address] | | | | | | [address] [place], | | | | | | [place] [address] | | | | | | [phone] | | | | | | | [...]
--- OUTSIDE RECORDS SUMMARY | ~2019-09-30 | XMS | Encounter Summary ---
Demographics + + + | Address | [address] | | | [place] [address] | + + + | Home Phone [...] Team Providers + +------+ + | Care Paraffin Plant Sweater Operator Name | Role | Phone | [...] | | | [address] [place], | [address] | | | | | [place] [address] | | | | | | [phone] | | | +--------+ + + + [...] | | | | | [place] [address] | | | | | | [phone] | | | | | | | | +--------+ + + + + | 10/30/ | Office | Primary Care | Erika Ernst, | | | 2019 | Visit | | DO [address] | | | | | | [place] [address] | | | | | | [phone] | | | | | | | [...] [place] | | | | | | [address] | | | | | | [phone] | | | | | | | | +--------+ + + + + | 02/09/ | Office | Neurology | Dhara, | | | 2019 | Visit | | [address] | | | | | | [address] [place], | | | | | | [place] [address] | | | | | | [phone] | | | | | | | | +--------+ + + + + documented as of this encounter Visit Diagnoses Not on filedocumented in this encounter"
--- OUTSIDE RECORDS SUMMARY | ~2019-09-30 | XMS | Encounter Summary ---
Demographics + + + | Address | [address] | | | [place] [address] | + + + | Home Phone [...] Providers + +------+ + | Care Television And Radio Repairer Name | Role | Phone | + +------+ + PCP | Unavailable | + +------+ + Encounter Details +--------+ + + + + | Date | Type | Department | Care Team | Description | +--------+ + + + + | 11/30/ | [facility] | Nicanor Mckeon | | | 2015 | Encounter | [facility] | MD Caryn [address] | | | | | MEDICAL CL[facility] [address] | [place], [place] | | | | | [address]TH [facility], | [address] | | | | | [place] [address] | [phone] | | | | | [phone] | | | +--------+ + + + [...] | | | | | [place] [address] | | | | | | [phone] | | | | | | | | +--------+ + + + + | 10/30/ | Office | Primary Care | Erika Ernst, | | | 2019 | Visit | | DO [address] | | | | | | [place] [address] | | | | | | [phone] | | | | | | | [...] [place] | | | | | | [address] | | | | | | [phone] | | | | | | | | +--------+ + + + + | 02/09/ | Office | Neurology | Dhara, | | | 2020 | Visit | | [address] | | | | | | [address] [place], | | | | | | [place] [address] | | | | | | [phone] | | | | | | | | +--------+ + + + + documented as of this encounter Visit Diagnoses Not on filedocumented in this encounter"
--- OUTSIDE RECORDS SUMMARY | ~2019-09-30 | XMS | Encounter Summary ---
Demographics + + + | Address | [address] | | | [place] [address] | + + + | Home Phone [...] Providers + +------+ + | Care Pharmacist In Charge Owner Name | Role | Phone | + [...] | MEDICAL [facility] [address] | [place] [address] | | | | | [address] [place], | [phone] | | | | | [place] [address] | | | | | | [phone] | | | +--------+ + + + [...] | Visit | | DO [address] | | | | | | [place] [address] | | | | | | [phone] | | | | | | | | +--------+ + + + + | 10/30/ | Office | Primary Care | Erika Ernst, | | | 2019 | Visit | | DO [address] [place] | | | | | | [place] [address] | | | | | | [phone] | | | | | | | [...] [place] | | | | | | [address] | | | | | | [phone] | | | | | | | | +--------+ + + + + | 02/09/ | Office | Neurology | Dhara, | | | 2020 | Visit | | [address] | | | | | | [address] [place], | | | | | | [place] [address] | | | | | | [phone] | | | | | | | | +--------+ + + + + documented as of this encounter Visit Diagnoses Not on filedocumented in this encounter"
--- OUTSIDE RECORDS SUMMARY | ~2019-09-30 | XMS | Encounter Summary ---
Demographics + + + | Address | [address] | | | [place] [address] | + + + | Home Phone [...] Team Providers + +------+ + | Care Jet Handler Name | Role | Phone | [...] Medication Refill | | 2019 | | [facility] | DO [address] | | | | | MEDICAL CLIN[facility] [address] | [place] [address] | | | | | [address] [place], | [phone] | | | | | [place] [address] | | | | | | [phone] | | | +--------+--------+ + + + [...] ST | | | | | | [place] [address] | | | | | | [phone] | | | | | | | | +--------+ + + + + | 10/30/ | Office | Primary Care | Erika Ernst, | | | 2019 | Visit | | DO [address] | | | | | | [place] [address] | | | | | | [phone] | | | | | | | [...] [place] | | | | | | [address] | | | | | | [phone] | | | | | | | | +--------+ + + + + | 02/09/ | Office | Neurology | Dhara, | | | 2020 | Visit | | [address] | | | | | | [address] [place], | | | | | | [place] [address] | | | | | | [phone] | | | | | | | | +--------+ + + + + documented as of this encounter Visit Diagnoses Not on filedocumented in this encounter"
--- OUTSIDE RECORDS SUMMARY | ~2019-09-30 | XMS | Encounter Summary ---
Demographics + + + | Address | [address] | | | [place] [address] | + + + | Home Phone [...] Team Providers + +------+ + | Care Dietary Supervisor Name | Role | Phone | [...] [facility] [place] [address] | Elevated blood | | | | [address] [place], | [phone] | pressure reading | | | | [place] [address] | | | | | | [phone] | | | +--------+---------+ + + + [...] LA | | | | | | [facility] [place] [address] | | | | | | [phone] | | | | | | | | +--------+ + + + + | 10/30/ | Office | Primary Care | Erika Ernst, | | | 2019 | Visit | | DO [address] | | | | | | [place] [address] | | | | | | [phone] | | | | | | | [...] [place] | | | | | | [address] | | | | | | [phone] | | | | | | | | +--------+ + + + + | 02/09/ | Office | Neurology | Dhara, | | | 2019 | Visit | | [address] | | | | | | [address] [place], | | | | | | [place] [address] | | | | | | [phone] | | | | | | | [...]
--- OUTSIDE RECORDS SUMMARY | ~2019-09-30 | XMS | Encounter Summary ---
Demographics + + + | Address | [address] | | | [place] [address] | + + + | Home Phone [...] Providers + +------+ + | Care Metal Hardener Name | Role | Phone | + [...] Refill | | 2017 | | [facility] | DO [address] | | | | | MEDICAL CLIN[facility] [address] | [place] [address] | | | | | [address] [place], | [phone] | | | | | [place] [address] | | | | | | [phone] | | | +--------+--------+ + + + [...] | | | | | [place] [address] | | | | | | [phone] | | | | | | | | +--------+ + + + + | 10/30/ | Office | Primary Care | Erika Ernst, | | | 2019 | Visit | | DO [address] | | | | | | [place] [address] | | | | | | [phone] | | | | | | | [...] [place] | | | | | | [address] | | | | | | [phone] | | | | | | | | +--------+ + + + + | 02/09/ | Office | Neurology | Dhara, | | | 2019 | Visit | | [address] | | | | | | [address] [place], | | | | | | [place] [address] | | | | | | [phone] | | | | | | | | +--------+ + + + + documented as of this encounter Visit Diagnoses + + | Diagnosis | + + | Hypertension, unspecified type - Primary | + + documented in this encounter"
--- OUTSIDE RECORDS SUMMARY | ~2019-09-30 | XMS | Encounter Summary ---
Demographics + + + | Address | [address] | | | [place] [address] | + + + | Home Phone [...] Providers + +------+ + | Care It Quality Analyst Name | Role | Phone [...] | asthma with | [place], | [place] | | | | | acute | [place] [address] | Health and | | | | | exacerbation | Phone: | Service | | | | | | [phone] | | | | | | | Fax: | | | | | | | [phone] | | +--------+ + + + + [...] | | | | syndrome | [place] [address] | [place], [place] | | | | | | Phone: | [address] Phone: | | | | | | [phone] | [phone] | | | | | | Fax: | Fax: | | | | | | [phone] | [phone] | + + + + + + [...] persistent | | 2019 | Visit | [facility] | DO [address] | asthma with acute | | | | MEDICAL CLIN[facility] [address] | [place] [address] | exacerbation | | | | [address] [place], | [phone] | (Primary Dx); | | | | [place] [address] | | Environmental | | | | [phone] | | allergies; | | | | [...] yet. She had seen Dr Pruett [facility] [place] last Fall and in Nov but would like to see a different sweeper driver for second opinion. Dr Pruett focused on [...] Referral to [facility] Plan: Referral to Line Erector Apprentice for second opinion and continue current inhalers. [...] | | | | | [place] [address] | | | | | | [phone] | | | | | | | | +--------+ + + + + | 10/30/ | Office | Primary Care | Erika Ernst, | | | 2019 | Visit | | DO [address] | | | | | | [place] [address] | | | | | | [phone] | | | | | | | [...] [place] | | | | | | [address] | | | | | | [phone] | | | | | | | | +--------+ + + + + | 02/09/ | Office | Neurology | Dhara, | | | 2019 | Visit | | [address] | | | | | | [address] [facility], | | | | | | [place] [address] | | | | | | [phone] | | | | | | | [...]
--- OUTSIDE RECORDS SUMMARY | ~2019-09-30 | XMS | Encounter Summary ---
Demographics + + + | Address | [address] | | | [place] [address] | + + + | Home Phone [...] Team Providers + +------+ + | Care Slack Line Yarder Name | Role | Phone | + [...] | | | [place], [place] | [address] | | | | | [address] | [phone] | | | | | [phone] | | | +--------+ + + + [...] | | | | | [place] [address] | | | | | | [phone] | | | | | | | | +--------+ + + + + | 10/30/ | Office | Primary Care | Erika Enrst, | | | 2019 | Visit | | DO [address] [place] | | | | | | [place] [address] | | | | | | [phone] | | | | | | | [...] [place] | | | | | | [address] | | | | | | [phone] | | | | | | | | +--------+ + + + + | 02/09/ | Office | Neurology | Dhara, | | | 2020 | Visit | | [address] | | | | | | [address] [place], | | | | | | [place] [address] | | | | | | [phone] | | | | | | | | +--------+ + + + + documented as of this encounter Visit Diagnoses Not on filedocumented in this encounter"
--- OUTSIDE RECORDS SUMMARY | ~2019-09-30 | XMS | Encounter Summary ---
Demographics + + + | Address | [address] | | | [place] [address] | + + + | Home Phone [...] Providers + +------+ + | Care Radiator Cleaner Name | Role | Phone | [...] | MEDICAL CLIN[facility] [address] | [place] [address] | Chronic pain of both | | | | [address] [place], | [phone] | ears; Chronic | | | | [place] [address] | | congestion of | | | | [phone] | | paranasal sinus; | | | [...] | | | | | [place] [address] | | | | | | [phone] | | | | | | | | +--------+ + + + + | 10/30/ | Office | Primary Care | Erika Ernst, | | | 2019 | Visit | | DO [address] [place] | | | | | | [place] [address] | | | | | | [phone] | | | | | | | [...] [place] | | | | | | [address] | | | | | | [phone] | | | | | | | | +--------+ + + + + | 02/09/ | Office | Neurology | Dhara, | | | 2020 | Visit | | [address] | | | | | | [address] [place], | | | | | | [place] [address] | | | | | | [phone] | | | | | | | [...]
--- OUTSIDE RECORDS SUMMARY | ~2019-09-30 | XMS | Encounter Summary ---
Demographics + + + | Address | [address] | | | [place] [address] | + + + | Home Phone [...] Providers + +------+ + | Care Solar Project Manager Name | Role | Phone [...] [address] | [facility] [place] [address] | | | | | [address] [facility], | [phone] | | | | | [place] [address] | | | | | | [phone] | | | +--------+ + + + [...] | | | | | [place] [address] | | | | | | [phone] | | | | | | | | +--------+ + + + + | 10/30/ | Office | Primary Care | Erika Ernst, | | | 2019 | Visit | | DO [address] [place] [address] | | | | | | [place] [address] | | | | | | [phone] | | | | | | | [...] [place] | | | | | | [address] | | | | | | [phone] | | | | | | | | +--------+ + + + + | 02/09/ | Office | Neurology | Dhara, | | | 2019 | Visit | | [address] | | | | | | [address] [place], | | | | | | [place] [address] | | | | | | [phone] | | | | | | | | +--------+ + + + + documented as of this encounter Visit Diagnoses Not on filedocumented in this encounter"
--- OUTSIDE RECORDS SUMMARY | ~2019-09-30 | XMS | Encounter Summary ---
Demographics + + + | Address | [address] | | | [place] [address] | + + + | Home Phone [...] Team Providers + +------+ + | Care Fishing Lure Assembler Name | Role | Phone | + +------+ + | Erika Ernst DO | PCP | | + +------+ + Reason for Visit + + + | Reason | Comments | + + + | Follow-up | short term memory loss | + + + Consultation (Routine) + + [...] | | | | syndrome | [place] [address] | [place], [place] | | | | | | Phone: | [phone] Phone: | | | | | | [phone] | [phone] | | | | | | Fax: | Fax: | | | | | | [phone] | [phone] | + + + + + + + Encounter Details +--------+---------+ + + + | Date | Type | Department | Care Team | Description | +--------+---------+ + + + | 08/12/ | Office | [facility] | Luis Nichole MD | Post-traumatic brain | | 2019 | Visit | [facility] | [address] | syndrome (Primary | | | | CLINIC [address] | [place], [place] | Dx) | | | | DR [place], | [address] | | | | | [place] [address] | | | | | | [phone] | | | +--------+---------+ + + + [...] + | Blood Pressure | 130/80 | 08/12/2019 11:29 AM | | | | | PST | | + + + + + | Pulse | 98 | 08/12/2019 11:29 AM | | | | | PST | | + + + + + | Temperature | - | - | | + + + + + | Respiratory Rate | 20 | 08/12/2019 11:29 AM | | | | | PST | | + + + + + | Oxygen Saturation | 98% | 08/12/2019 11:29 AM | | | | | PST | | + + + + + | Inhaled Oxygen | - | - | | | Concentration | | | | + + + + + | Weight | 175.5 kg (387 lb) | 08/12/2019 11:29 AM | | | | | PST | | + + + + + | Height | 177.8 cm (5' 10") | 08/12/2019 11:29 AM | | | | | PST | | + + + + + | Body Mass Index | 55.53 | 08/12/2019 11:29 AM | | | | | PST | | + + + + + documented in this encounter Patient Instructions Patient Instructions Luis Nichole MD - 08/12/2019 11:30 AM PSTFormatting of this note mi ght be different from the original. Patient Instructions [facility] Neu[facility] Clinic Dr. Luis Nichole, Neurologist Date:08/12/2019 Name:Andrea King Angeli :..1990 Please schedule next follow up appt with Cody in 5-6 months for S/P Cerebral concussion , Pos traumatic brain syndrome , with improving headache,neck pain, and dizziness Hx Depression/Anxiety Hx Meniere's disease Treatment Option- massage, Acupuncture, Over the counter heat patches (icy hot, thermacare, salonpas) , over the counter creams (aspercream, bengay cream, emu oi l), Relaxation therapy, Water therapy, Cortisone shots, Toradol Injections Suggest reading newspapers. magazines, perform word find exercises such as cross word puzz le, and scrabble, other puzzle games like [employer], Pagerjong. Play computer/mobile applications such as Hi-Dis(Mosen) and MIND GAMES Neurologically improving Continue with LINDA ChanelW in [place] Any Questions please call BAKARI Terrell or Dr. Nichole at [facility] Coping with Concussion Concussion is [...] bath or taking a hot shower. Take qomz-knq-hcrphbg acetaminophen to relieve headache pain. Take them [...] treatment y ou need. Date Last Reviewed: 10/02/201719997949-[address] [employer] [place] [address], [place] [address]. All righ ts reserved. This information is not intended as a substitute for professional medical care. Always follow your healthcare professional's instructions. Problems with Thinking Skills After Brain Injury One of the brain s main roles is to allow a person to think, remember, reason, and magnet placer. After a brain injury, a person may be less able to coordinate sequential activities (apraxi a), process thought (agnosia), or use language (aphasia). At first, therapy may be provided by medical accountant, physical therapists, and occupational therapists,but it often re quires longer-term support by family and friends. Coordinating function Coordinating functions can be hard for a person with a brain injury. Even a simple task, hubbard ch as combing hair, may need to be broken into steps. The team can teach you how to help the person link ideas. You can help: Find out what your loved one is working on. Ask him or her to do the task. Allow plenty of time. Break all tasks into simple steps. Change topics or tasks if your loved one gets confused. Use pillboxes to help organize medicines. Improving memory One goal is to help people know where they are. Post signs identifying the bathroom, closet , and doorway. Also post maps of the person's room or the gym. Names of family and therapist s may be on a daily schedule or in a journal. You can help: Keep visits short, but try to visit often. Say who you are when you greet your loved one. Ask the same questions often. Go through family photo albums with the person. Relearning language skills If a person has trouble understanding or using words, he or she may need to use gestures or eye blinks to communicate. To help a person relearn words, a therapist may point to an obje ct and ask its name. If a person has physical trouble speaking, exercises may help. A speech therapist may show how to form the lips and mouth to make certain sounds. Altered speech functions can be frustrating. It is important for family and friends to be u nderstanding and supportive. You can help: Use picture flash cards with the person. Speak slowly. Use common words. Speak in simple sentences. Stick to one idea or action. Ask yes-or-no questions. Give the person time to understand you and to respond. Bring the person back to the main topic. Don t talk down to the person or ignore them. Keep calm and rational if your loved one gets upset or agitated. Bring to rehab items that hold meaning for the person: Photos of family or friends Plants and knickknacks Favorite clothes Posters Music Date Last Reviewed: 09/01/201719991344-[address] [employer] [place] [address], [place] [address]. All righ ts reserved. This information is not intended as a substitute for professional medical care. Always follow your healthcare professional's instructions. Anxiety and Traumatic Brain Injury A traumatic brain injury (TBI) is a brain injury that can change the way you think, act, an d feel. A TBI could be caused by a blow to your head, falls, fights, sports, and car acciden ts. Anxiety is fear and worry. Dealing with a TBI is stressful, so it s not surprising that a nxiety is a common symptom of a TBI. But when fear and worry become so strong that they get in the way of your ability to live your life, you could have an anxiety disorder. Spotting an anxiety disorder with a TBI is important. This is because an anxiety disorder c an make it hard to do the things you need to do to get better. An anxiety disorder may also increase your risk for substance abuse and depression. Symptoms of anxiety disorder Like a TBI, an anxiety disorder can change the way you think, act, and feel. It can also ca use physical symptoms. In extreme cases, it can even cause a seizure. Here are some common s ymptoms to watch for: Extreme fear and worry that does not let up Shortness of breath Racing heartbeat Trouble sleeping Restlessness Trembling Dizziness Nausea Inability to think clearly Panic attacks Types of anxiety disorders If you have common symptoms of anxiety that get in the way of your ability to live your lif e, it is called generalized anxiety disorder. There are also these specific kinds of anxiety disorders: Panic disorder causes fear that is more like terror. You may live in fear of having a pa montrell attack. People with panic disorder sometimes become afraid to leave the house. Phobias are intense fears of certain things or situations. If you have this type of anxi ety, you may fear an activity like flying or you may be afraid of public places. Obsessive compulsive disorder (OCD) causes you to have uncontrolled thoughts and feeling s. People with OCD repeat behaviors, like cleaning or washing, over and over again. Post-traumatic stress disorder (PTSD) is a type of anxiety in which people relive a trau matic event in flashbacks and nightmares. About 25 percent of people with a TBI have PTSD. T his is common among veterans wounded during combat. What to do for an anxiety disorder Let your healthcare provider know about your anxiety symptoms. You are not alone. Your [facility] provider is aware of the risks of anxiety disorder and can help you. A mental health professional can treat an anxiety disorder with a type of counseling called cognitive behavi oral therapy (CBT). During CBT, you learn to figure out the sources of anxiety and manage your symptoms. CBT te aches you to change the thoughts that lead to anxiety. It also teaches you to deal with symp toms in healthy ways. Relaxation techniques and deep-breathing exercises may be part of the treatment. Antianxiety medicines are sometimes used along with CBT. You can also take steps on your own to cope with anxiety: Share your fears and worries with others. Stay active and spend time with friends and loved ones. Do not use alcohol or drugs to relieve anxiety. Don t smoke or drink too much coffee. Eat a healthy diet, get regular exercise, and keep regular hours for sleep. Reduce stress by taking part in activities you enjoy. TBI symptoms get better with time. Everybody s brain heals at a different pace. Be patien t and give yourself the time you need. Don t let anxiety get in the way of your recovery. You don t need to suffer since treatment is available for anxiety and TBI. Date Last Reviewed: 04/01/201619995972-3895 [employer]. [address] [place] [address], [place] [address]. All righ ts reserved. This information is not intended as a substitute for professional medical care. Always follow your healthcare professional's instructions. What is Mild Traumatic Brain Injury (Concussion)? A mild traumatic brain injury (TBI) is a sudden jolt to your head that causes the way your brain works to change temporarily. It is also called a concussion. This could be caused by a blow to your head, a blast, or a sudden and severe movement of your head that bounces your brain inside your skull. Falls, fights, sports, and motor vehicle accidents are other common causes. In addition to mild TBI, there are two other types: moderate TBI and severe TBI. [facility] team will decide if your TBI is mild, moderate, or severe at the time of the injury. S ometimes the symptoms of a mild TBI are much like those of a more severe TBI. Because every brain is different, it can be hard to predict exactly what your symptoms or your specific re covery will be like. Diagnosing a mild TBI Most TBIs are mild. If you have a mild TBI, you might be knocked out for a short time or yo u might just feel stunned for a while. Your healthcare provider may evaluate you to see if y ou have had a mild TBI. Diagnosing a mild TBI may be difficult because symptoms are similar to those of other condi tions and signs may not show up on brain scans or X-rays. Your healthcare provider may base your diagnosis on the following criteria: Characteristics of the head injury The types and severity of your symptoms Risk factors that can lead to longer recovery period Symptoms of a mild TBI Having a mild TBI can change your brain in many ways. A mild TBI can change the way you thi nk, feel, or act. The kind of symptoms you have depends on the location and extent that your brain is affected. Common symptoms of mild TBI can occur right away or a while after the in jury. Early symptoms may include: Headache Dizziness Not being sure of where you are Memory problems Being sick to your stomach Vomiting Vision problems Later symptoms of a mild TBI may include: Having frequent headaches Feeling light-headed Not being able to concentrate or pay attention Feeling tired most of the time Getting angry and irritated easily Being bothered by bright light or loud noise Having trouble focusing your eyes Hearing ringing in your ears Feeling anxious and depressed Recovering from a mild TBI Most people recover completely from mild TBI, but it may take days, weeks, or months. For s ome, symptoms may last even longer. Also, if you have had more than one TBI, your recovery m ay take longer. Every brain is different, so your recovery time will depend on how quickly y our own brain is healing. Don't return to sports or any activity that could cause you to hit your head until all symp toms are gone and you have been cleared by your doctor. A second head injury before fully re covering from the first one can lead to serious brain injury. Different clinical guidelines and studies provide different recommendations or returning to full cognitive functions and daily activities versus resting the brain for a period of time . Talk to your healthcare provider about the best approach for you. You can expect to have some good days and some bad days. It is important to give your brain time to recover and not push yourself too hard. Trying to tough it out can make your symptoms worse. The best way to recover is to discuss symptoms with your healthcare provider , as well as your family. Work closely with your healthcare provider and give your brain primo e to heal. Date Last Reviewed: 09/01/201719997468-7575 [employer]. [address] [facility], [place] [address]. All [facility] ts reserved. This information is not intended as a substitute for professional medical care. Always follow your healthcare professional's instructions. Treatment for Mild Traumatic Brain Injury (Concussion) A mild traumatic brain injury (TBI) is a sudden jolt to your head that causes a temporary c hange in the way your brain works. It could be caused by a blow to your head, a blast, or a sudden and severe movement of your head that bounces your brain inside your skull. Falls, fi ghts, sports, and car accidents also can cause TBIs. Treatment of mild TBI Having a mild TBI can change the way you feel, act, move, and think. Even though you may lo ok fine, a mild TBI can have a big impact on many areas of your life. A mild TBI can cause h eadaches, fatigue, memory problems, mood swings, and inability to focus your thoughts. Treatment for mild TBI may be different, depending on symptoms and other unrelated medical issues; therefore, no 2 TBIs are the same. You may need to work with a TBI team a group of healthcare providers who help people recover from TBI. For example, you might work with a physical therapist to help with your balance and movement problems. Or you might work with an occupational therapist to help you function better at home and at work. Other medical exp erts may help you with emotional and thinking problems. In some cases, your doctor may use medicine to ease symptoms while you recover. These may i nclude pain relievers, antidepressants, antianxiety medicine, sleep aids, and muscle relaxan ts. Although medicines can help, they are not a main part of treatment. You should not take any medicines unless discussed and approved by your healthcare provider. Things that you can do for yourself are usually as important as the medicines you are prescribed. This part of your treatment is called self-management. Self-management for mild TBI Most people with mild TBI recover completely, but it may take weeks or months. For some peo ple, symptoms may continue for years. Because of this, self-management may continue long aft er you leave the hospital. Many lifestyle changes that help your brain recover are good habi ts that you should keep up even after you have recovered. Here are some tips: Learn as much as you can about TBI. Share what you learn with friends and family. Let your health care team know about all your symptoms. Eat a healthy diet and drink plenty of fluids. Get plenty of sleep. Early return to normal activities is proven to help more than prolonged rest in certain cases. Music is believed to activate the brain and promote brain healing. Don t overexert yourself mentally or physically. Don t smoke, take drugs,or drink alcohol. Don t use caffeine or energy drinks as a way to make you feel less tired. Avoid activities that could cause another jolt to your head.Don't return to sports or any activity that could cause you to hit your head until all symptoms are gone and you have been cleared by your doctor. A second head injury before fully recovering from the first one can lead to serious brain injury. Ask your health care provider what types of activities ar e safe. Avoid mental stress. Learn some relaxation techniques like deep breathing. Keep a pad and pencil handy. Write things down if you are having trouble concentrating o r remembering. Let your healthcare provider know if your symptoms are getting worse. And look out for othe r important mental symptoms. These include memory loss, having a hard time thinking clearly, having trouble controlling your emotions, and depression. Also be sure to report physical s ymptoms such as worsening headaches, loss of balance, changes in vision, seizures, and vomit ing. Recovery from a mild TBI takes time. Be patient and give your brain time to heal. Be sure t o rely on your support system, which includes friends and family members who understand what you are going through. You might also want to join a support group and share your feelings with others who have had a TBI. Date Last Reviewed: 10/02/201719991728-9378 [employer]. [address] [place] [address], [place] [address]. All righ ts reserved. This information is not intended as a substitute for professional medical care. Always follow your healthcare professional's instructions. documented in this encounter Progress Notes Luis Nichole MD - 08/12/2019 11:30 AM PST Patient: Andrea Suh Medical Record: [id number] Date of Services: 08/12/2019 Referring Doctor: Erika Ernst DO Chief Complaint: Posttraumatic brain syndrome History of Present Illness: Miss Suh was a 29-year-old right-handed lady, seen for neurologic evaluation, treated fo r status post treatable concussion/Posttraumatic head injury with patient's headaches, neck pain, dizziness improving. She still experiences mild cognitive dysfunction and difficulty in concentrating though has significant history of depression/anxiety. She was recently seen by a neuropsychologist by LUISANA and she apparently demonstrated no geneva ar evidence of significant cognitive/memory dysfunction from her head injury. [facility] was performed by Olga Rajput, PHD. I discussed with Miss Mason that s jessie she is clinically improving taking no medications at this time but she is to follow-up with her psychologist, LINDA ChanelW in [facility]. She has been using BuSpar for underlying stress/anxiety and uses Tylenol and or ibuprofen f or headache and neck pain and cyclobenzaprine for spasms. Review of Systems: Denies earache, nasal catarrh, diplopia, blurring of vision, dysphagia, odynophagia, sore throat, neck masses, hearing loss, chest pain, palpitations, shortness of breath, cough, hemoptysis, abdominal pain, diarrhea, constipation, bowel or bladder dysfunct ion, hematuria, dysuria, lymphadenopathies, echhymoses, rashes, gait ataxia, and homicidal o r suicidal ideations. Current Outpatient Medications Medication Sig Dispense Refill [...] six times a day 180 tablet 11 cefdinir (OMNICEF) 300 mg capsule Take 1 capsule by mouth 2 times daily for 7 days. 14 capsule 0 Cetirizine HCl (ZYRTEC PO) Take by [...] by mouth every evening 30 tablet 11 mupirocin (BACTROBAN) 2% ointment Apply a thin amount to affected area 2 times per day for 10 days, reevaluate if no response 22 g 0 prazosin (MINIPRESS) 1 mg capsule Take 1 capsule by mouth nightly. 30 capsule 11 pseudoephedrine-guaiFENesin (MUCINEX D) 60-600 mg per [...] with certain antibiotics Adhesive & Tape Rash Neurological Examination: Vitals: 08/12/19 1129 BP: 130/80 Pulse: 98 Resp: 20 PainSc: 2 PainLoc: Head MENTAL STATUS: The patient is awake, alert, and oriented to time, place, and person. Spee is fluent. Memory, attention, comprehension, and general fund of knowledge are intact. CRANIAL NERVES: Funduscopy revealed distinct disc margins. [...] on double simultaneous stimulation. DEEP TENDON REFLEXES: 2+ and symmetric. PLANTAR RESPONSES: Downgoing bilaterally GAIT: Gait and station are normal. Able to tandem gait, Romberg was negative CEREBELLAR EXAMINATION: There is no dysmetria on bapsnh-ip-kwks test. MISCELLANEOUS EXAM: Well Kept, well nourished, Atraumatic, obese, no evidence of frontal o r maxillary sinus tenderness, no neck masses, mild tenderness in the paraspinal cervical spi ne, trapezius, and suprascapular muscles with the decrease with decreased range of motion sp nasima on flexion and extension at 5-10,abdomen is soft and nontender, extremities equally pa lpable pulses Clinical Impression: S/P Cerebral concussion, Pos traumatic brain syndrome , with improving headache,neck pain, and dizziness Hx Depression/Anxiety Hx Meniere's disease Plan: Please schedule next follow up appt with Angelromario in 5-6 months for S/P Cerebral concussion , Pos traumatic brain syndrome , with improving headache,neck pain, and dizziness Hx Depression/Anxiety Hx Meniere's disease Treatment Option- massage, Acupuncture, Over the counter heat patches (icy hot, thermacare, salonpas) , over the counter creams (aspercream, bengay cream, emu oi l), Relaxation therapy, Water therapy, Cortisone shots, Toradol Injections Suggest reading newspapers. magazines, perform word find exercises such as cross word puzz le, and scrabble, other puzzle games like [employer], [employer]. Play computer/mobile applications such as Hi-Dis(Mosen) and [employer] GAMES Continue with Ms Boston LCSW in [place] Any Questions please call BAKARI Terrell or Dr. Nichole at [facility] Neu[facility] Luis Nichole MD08/12/201911:55 AM Electronically signed NOTE: Part of this report was transcribed using voice recognition software. Every effort was made to ensure accuracy. However, inadvertent computerize android framework developer errors may be present documented in this enc ounter Plan of Treatment +--------+ + + + + | Date | Type | Specialty | Care Team | Description | +--------+ + + + + | 10/01/ | Office | Primary Care | Erika Ernst, | | | 2018 | Visit | | DO [address] [place] | | | | | | [place] [address] | | | | | | [phone] | | | | | | | | +--------+ + + + + | 10/30/ | Office | Primary Care | Erika Ernst, | | | 2019 | Visit | | DO [address] [place] | | | | | | [place] [address] | | | | | | [phone] | | | | | | | [...] [place] | | | | | | [address] | | | | | | [phone] | | | | | | | | +--------+ + + + + | 02/09/ | Office | Neurology | Dhara, | | | 2019 | Visit | | DWAINE Ross [address] [place], | | | | | | [place] [address] | | | | | | [phone] | | | | | | | [...] - Primary Postconcussion syndrome | + + documented in this encounter
--- OUTSIDE RECORDS SUMMARY | ~2019-09-30 | XMS | Encounter Summary ---
Demographics + + + | Address | [address] | | | [place] [address] | + + + | Home Phone [...] Team Providers + +------+ + | Care Government Property Inspector Name | Role | Phone | [...] | | | | Procedures | [place] [address] | [place], [place] | | | | | [place] | Phone: | [phone] | | | | | | [phone] | Phone: | | | | | | Fax: | [phone] | | | | | | [phone] | Fax: | | | | | | | [phone] | + + + + + + [...] | [facility] | [place] [address] | | | | | [address] [place], | [phone] | | | | | [place] [address] | | | | | | [phone] | | | +--------+ + + + [...] | | | | | [place] [address] | | | | | | [phone] | | | | | | | | +--------+ + + + + | 10/30/ | Office | Primary Care | Erika Ernst, | | | 2019 | Visit | | DO [address] | | | | | | [place] [address] | | | | | | [phone] | | | | | | | [...] [place] | | | | | | [address] | | | | | | [phone] | | | | | | | | +--------+ + + + + | 02/09/ | Office | Neurology | Dhara, | | | 2019 | Visit | | [address] | | | | | | [address] [place], | | | | | | [place] [address] | | | | | | [phone] | | | | | | | [...]
--- OUTSIDE RECORDS SUMMARY | ~2019-09-30 | XMS | Encounter Summary ---
Demographics + + + | Address | [address] | | | [place] [address] | + + + | Home Phone [...] Providers + +------+ + | Care Sheet Mill Supervisor Name | Role | Phone | [...] | [facility] | [place] [address] | | | | | [address] [place], | [phone] | | | | | [place] [address] | | | | | | [phone] | | | +--------+ + + + [...] | | | | | [place] [address] | | | | | | [phone] | | | | | | | | +--------+ + + + + | 10/30/ | Office | Primary Care | Erika Ernst, | | | 2019 | Visit | | DO [address] | | | | | | [place] [address] | | | | | | [phone] | | | | | | | [...] [place] | | | | | | [address] | | | | | | [phone] | | | | | | | | +--------+ + + + + | 02/09/ | Office | Neurology | Dhara, | | | 2020 | Visit | | [address] | | | | | | [address] [place], | | | | | | [place] [address] | | | | | | [phone] | | | | | | | | +--------+ + + + + documented as of this encounter Visit Diagnoses Not on filedocumented in this encounter"
--- OUTSIDE RECORDS SUMMARY | ~2019-09-30 | XMS | Encounter Summary ---
Demographics + + + | Address | [address] | | | [place] [address] | + + + | Home Phone [...] Team Providers + +------+ + | Care Database Programmer Analyst Name | Role | Phone [...] [place] | | | | | | [address] | | | | | | [phone] | | | +--------+ + + + [...] period and is compliant with wrist and package reinspector strengthening exercises. She does still have deficits in package reinspector strength and wrist stability as well as pain with daily activities. Her arya b description may be changing which would decrease the physical demands of her work, making it more appropriate for her current status. She continues to benefit from Occupational Thera py to maximize her package reinspector strength and wrist stability following this injury and return her to prior level of function. 10/30/2018 - REASON FOR RE-CERTIFICATION: Andrea has received 12 Occupational Therapy treatme nts since 08/07/2018 following her right wrist surgery. She has regained full AROM of the rig ht wrist but continues to have right wrist, package reinspector and pinch weakness and significant pain (3- [...] in 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, and package reinspector and pinch weakness in the right hand [...] | | | | | [place] [address] | | | | | | [phone] | | | | | | | | +--------+ + + + + | 10/30/ | Office | Primary Care | Erika Ernst, | | | 2019 | Visit | | DO [address] [place] | | | | | | [place] [address] | | | | | | [phone] | | | | | | | [...] [place] | | | | | | [address] | | | | | | [phone] | | | | | | | | +--------+ + + + + | 02/09/ | Office | Neurology | Dhara, | | | 2019 | Visit | | [address] | | | | | | [address] [place], | | | | | | [place] [address] | | | | | | [phone] | | | | | | | | +--------+ + + + + documented as of this encounter Visit Diagnoses + + | Diagnosis | + + | Radial styloid tenosynovitis - Primary | + + | Right wrist pain Pain in joint, forearm | + + documented in this encounter"
--- OUTSIDE RECORDS SUMMARY | ~2019-09-30 | XMS | Encounter Summary ---
Demographics + + + | Address | [address] | | | [place] [address] | + + + | Home Phone [...] Team Providers + +------+ + | Care Literary Agent Name | Role | Phone | [...] | | [facility] | [address] | | | | | [facility] [address] | [place] [address] | | | | | [address] [place], | [phone] | | | | | [place] [address] | | | | | | [phone] | | | +--------+ + + + [...] | | | | | [place] [address] | | | | | | [phone] | | | | | | | | +--------+ + + + + | 10/30/ | Office | Primary Care | Erika Ernst, | | | 2019 | Visit | | DO [address] | | | | | | [place] [address] | | | | | | [phone] | | | | | | | [...] [place] | | | | | | [address] | | | | | | [phone] | | | | | | | | +--------+ + + + + | 02/09/ | Office | Neurology | Dhara, | | | 2020 | Visit | | [address] | | | | | | [address] [place], | | | | | | [place] [address] | | | | | | [phone] | | | | | | | | +--------+ + + + + documented as of this encounter Visit Diagnoses Not on filedocumented in this encounter"
--- OUTSIDE RECORDS SUMMARY | ~2019-09-30 | XMS | Encounter Summary ---
Demographics + + + | Address | [address] | | | [place] [address] | + + + | Home Phone [...] Providers + +------+ + | Care Wood Fence Installer Name | Role | Phone | + +------+ + PCP | Unavailable | + +------+ + Encounter Details +--------+ + + + + | Date | Type | Department | Care Team | Description | +--------+ + + + + | 06/14/ | [facility] | Denise Mcgregor | | | 2017 | Encounter | [facility] | G, ANNUAL GIVING DIRECTOR [address] | | | | | [facility] | [facility] [place] | | | | | [address] [facility], | [address] | | | | | [place] [address] | [phone] | | | | | [phone] | | | +--------+ + + + [...] [address] | | | | | | [phone] | | | | | | | | +--------+ + + + + | 10/30/ | Office | Primary Care | Erika Ernst, | | | 2019 | Visit | | DO [address] | | | | | | [place] [address] | | | | | | [phone] | | | | | | | [...] [place] | | | | | | [address] | | | | | | [phone] | | | | | | | | +--------+ + + + + | 02/09/ | Office | Neurology | Dhara, | | | 2020 | Visit | | [address] | | | | | | [address] [place], | | | | | | [place] [address] | | | | | | [phone] | | | | | | | | +--------+ + + + + documented as of this encounter Visit Diagnoses Not on filedocumented in this encounter"
--- OUTSIDE RECORDS SUMMARY | ~2019-09-30 | XMS | Encounter Summary ---
Demographics + + + | Address | [address] | | | [place] [address] | + + + | Home Phone [...] Providers + +------+ + | Care Product Advisor Name | Role | Phone | [...] | | | of left | [place] [address] | [place] [address] | | | | | ankle, | Phone: | Phone: | | | | | initial | [phone] | [phone] | | | | | encounter | Fax: | Fax: | | | | | Procedures | [phone] | [phone] | | | | | PT TREAT [...] [address] [place] | [place] [address] | encounter (Primary | | | | [place], [place] | [phone] | Dx); Fall on same | | | | [address] | | level from slipping, | | | | [phone] | Julia Castillo | subsequent | | [...] be differen t from the original. [facility] THER[facility] PT [address] [place] [address] Physical Therapy Daily Treatment Note Date: 09/11/2018 [...] | | | | | [place] [address] | | | | | | [phone] | | | | | | | | +--------+ + + + + | 10/30/ | Office | Primary Care | Erika Ernst, | | | 2019 | Visit | | DO [address] [place] | | | | | | [place] [address] | | | | | | [phone] | | | | | | | [...] [place] | | | | | | [address] | | | | | | [phone] | | | | | | | | +--------+ + + + + | 02/09/ | Office | Neurology | Dhara, | | | 2019 | Visit | | [address] | | | | | | [facility] [place], | | | | | | [place] [address] | | | | | | [phone] | | | | | | | | +--------+ + + + + documented as of this encounter Visit Diagnoses + + | Diagnosis | + + | Sprain of left ankle, subsequent encounter - Primary | + + | Fall on same level from slipping, subsequent encounter | + + documented in this encounter"
--- OUTSIDE RECORDS SUMMARY | ~2019-09-30 | XMS | Encounter Summary ---
Demographics + + + | Address | [address] | | | [place] [address] | + + + | Home Phone [...] Team Providers + +------+ + | Care Finishing Area Operator Name | Role | Phone | [...] | [facility] [address] | [place] [address] | | | | | [address] [place], | [phone] | | | | | [place] [address] | | | | | | [phone] | | | +--------+ + + + [...] | | | | | [place] [address] | | | | | | [phone] | | | | | | | | +--------+ + + + + | 10/30/ | Office | Primary Care | Erika Ernst, | | | 2019 | Visit | | DO [address] [place] [address] | | | | | | [place] [address] | | | | | | [phone] | | | | | | | [...] [place] | | | | | | [address] | | | | | | [phone] | | | | | | | | +--------+ + + + + | 02/09/ | Office | Neurology | Dhara, | | | 2019 | Visit | | [address] | | | | | | [address] [place], | | | | | | [place] [address] | | | | | | [phone] | | | | | | | | +--------+ + + + + documented as of this encounter Visit Diagnoses Not on filedocumented in this encounter"
--- OUTSIDE RECORDS SUMMARY | ~2019-09-30 | XMS | Encounter Summary ---
Demographics + + + | Address | [address] | | | [place] [address] | + + + | Home Phone [...] Providers + +------+ + | Care Beater Tender Name | Role | Phone | [...] s (de | [place], [place] | [place] [address] | | | | | quervain) | [address] | Phone: | | | | | Pain in | Phone: | [phone] | | | | | right wrist | [phone] | Fax: | | | | | Procedures | Fax: | [phone] | | | | | OT TREAT | [phone] | | +--------+--------+ + + + + [...] [address] [place] | [place] [address] | (Primary Dx); Right | | | | [place], [place] | [phone] | wrist pain | | | | [address] | | | | | | [phone] | Michela Azevedo, | | | | [...] | 11/26/19 | | | (VITAMIN D3) [address] | mouth Once a week | tablet [...] might be different f rom the original. [facility] THERAP[facility] OT [address] [place] [address] Occupational Therapy Daily Treatment Note Date: 12/06/2018 [...] loading and prop rioception at tabletop, 5' staffing and scheduling coordinator strengthening 1-2x/day light resistance, and second surgic [...] reduced "scrubbing" motion, submaximal isometric extension, reduced staffing and scheduling coordinator strengthening to 5' x 1-2 a day with light putty, hold on wall pushu ps and heavy staffing and scheduling coordinator strengthening until symptoms normalize (pt education), pt [...] period and is compliant with wrist and staffing and scheduling coordinator strengthening exercises. She does still hav e deficits in staffing and scheduling coordinator strength and wrist stability as well as pain with daily activities. Her j ob description may be changing which would decrease the physical demands of her work, making it more appropriate for her current status. She continues to benefit from Decorative Engraver Apprentice apy to maximize her staffing and scheduling coordinator strength and wrist stability following this injury and return her t o prior level of function. 10/30/2018 - REASON FOR RE-CERTIFICATION: Andrea has received 12 Occupational Therapy treatme nts since 08/07/2018 following her right wrist surgery. She has regained full AROM of the rig ht wrist but continues to have right wrist, staffing and scheduling coordinator and pinch weakness and significant pain (3- [...] in 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, and staffing and scheduling coordinator and pinch weakness in the right hand [...] | | | | | [place] [address] | | | | | | [phone] | | | | | | | | +--------+ + + + + | 10/30/ | Office | Primary Care | Erika Ernst, | | | 2019 | Visit | | DO [address] | | | | | | [place] [address] | | | | | | [phone] | | | | | | | [...] [place] | | | | | | [address] | | | | | | [phone] | | | | | | | | +--------+ + + + + | 02/09/ | Office | Neurology | Dhara, | | | 2019 | Visit | | [address] | | | | | | [address] [place], | | | | | | [place] [address] | | | | | | [phone] | | | | | | | | +--------+ + + + + documented as of this encounter Visit Diagnoses + + | Diagnosis | + + | Radial styloid tenosynovitis - Primary | + + | Right wrist pain Pain in joint, forearm | + + documented in this encounter
--- OUTSIDE RECORDS SUMMARY | ~2019-09-30 | XMS | Encounter Summary ---
Demographics + + + | Address | [address] | | | [place] [address] | + + + | Home Phone [...] Providers + +------+ + | Care Slip Operator Name | Role | Phone | [...] | Luis Nichole MD | [facility] | | 2019 | | [facility]OSP[facility] | [address] [place] | | | | | CLIN[address] | [place] | | | | | [address] [place], | [address] | | | | | [place] [address] | | | | | | [phone] | | | +--------+ + + + [...] | | | | | [place] [address] | | | | | | [phone] | | | | | | | | +--------+ + + + + | 10/30/ | Office | Primary Care | Erika Ernst, | | | 2019 | Visit | | DO [address] [place] | | | | | | [place] [address] | | | | | | [phone] | | | | | | | [...] [place] | | | | | | [address] | | | | | | [phone] | | | | | | | | +--------+ + + + + | 02/09/ | Office | Neurology | Dhara, | | | 2020 | Visit | | [address] | | | | | | [address] [place], | | | | | | [place] [address] | | | | | | [phone] | | | | | | | | +--------+ + + + + documented as of this encounter Visit Diagnoses Not on filedocumented in this encounter"
--- OUTSIDE RECORDS SUMMARY | ~2019-09-30 | XMS | Encounter Summary ---
Demographics + + + | Address | [address] | | | [place] [address] | + + + | Home Phone [...] Providers + +------+ + | Care Test Fixture Designer Name | Role | Phone | [...] | | | to excess | [place] [address] | [place] | | | | | calories | Phone: | [address] | | | | | without | [phone] | Phone: | | | | | serious | Fax: | [phone] | | | | | comorbidity | [phone] | Fax: | | | | | with body | | [phone] | | | | | mass index [...] | Orders Only | [place] [facility] | Eirka Ernst, | Class 3 severe | | 2019 | | [facility] | DO [address] | obesity due to | | | | [facility] [address] | [place] [address] | excess calories | | | | [address] [place], | [phone] | without serious | | | | [place] [address] | | comorbidity with | | | | [phone] | | body mass index | | [...] | | | | | [place] [address] | | | | | | [phone] | | | | | | | | +--------+ + + + + | 10/30/ | Office | Primary Care | Erika Ernst, | | | 2019 | Visit | | DO [address] [place] | | | | | | [place] [address] | | | | | | [phone] | | | | | | | [...] [place] | | | | | | [address] | | | | | | [phone] | | | | | | | | +--------+ + + + + | 02/09/ | Office | Neurology | Dhara, | | | 2019 | Visit | | [address] | | | | | | [address] [place], | | | | | | [place] [address] | | | | | | [phone] | | | | | | | [...] | | | | 59.9 in adult ([facility]) | | | | | | Essential | | | | | | hypertension | | + + +--------+ + + documented as of this encounter Visit Diagnoses + + | Diagnosis | + + | Class 3 severe obesity due to excess calories without serious comorbidity with body | | mass index (BMI) of 50.0 to 59.9 in adult ([facility]) - Primary | + + | Essential hypertension Unspecified essential hypertension | + + documented in this encounter"
--- OUTSIDE RECORDS SUMMARY | ~2019-09-30 | XMS | Encounter Summary ---
Demographics + + + | Address | [address] | | | [place] [address] | + + + | Home Phone [...] Providers + +------+ + | Care Training And Development Assistant Name | Role | Phone | [...] Telephone | [place] [facility] | Travis Malone, RIGGER APPRENTICE | Other (wrist pain ) | | 2019 | | [facility] | [address] | | | | | [address] [place] [address] | [place], [place] | | | | | [place], [place] | [address] | | | | | [address] | [phone] | | | | | [phone] | | | +--------+ + + + [...] | | | | | [place] [address] | | | | | | [phone] | | | | | | | | +--------+ + + + + | 10/30/ | Office | Primary Care | Erika Ernst, | | | 2019 | Visit | | DO [address] | | | | | | [place] [address] | | | | | | [phone] | | | | | | | [...] [place] | | | | | | [address] | | | | | | [phone] | | | | | | | | +--------+ + + + + | 02/09/ | Office | Neurology | Dhara, | | | 2020 | Visit | | [address] | | | | | | [address] [place], | | | | | | [place] [address] | | | | | | [phone] | | | | | | | | +--------+ + + + + documented as of this encounter Visit Diagnoses Not on filedocumented in this encounter"
--- OUTSIDE RECORDS SUMMARY | ~2019-09-30 | XMS | Encounter Summary ---
Demographics + + + | Address | [address] | | | [place] [address] | + + + | Home Phone [...] Team Providers + +------+ + | Care Engineered Wood Designer Name | Role | Phone | [...] Pain (Pt | | 2019 | | [facility] | DO [facility] [address] [place] | request call back | | | | [facility]ICAL [facility] [address] | [facility] [place] [address] | today re: right | | | | [address] [place], | [phone] | ankle sprain) | | | | [place] [address] | | | | | | [phone] | | | +--------+ + + + [...] | | | | | [place] [address] | | | | | | [phone] | | | | | | | | +--------+ + + + + | 10/30/ | Office | Primary Care | Erika Ernst, | | | 2019 | Visit | | DO [address] [place] | | | | | | [place] [address] | | | | | | [phone] | | | | | | | [...] [place] | | | | | | [address] | | | | | | [phone] | | | | | | | | +--------+ + + + + | 02/09/ | Office | Neurology | Dhara, | | | 2019 | Visit | | [address] | | | | | | [address] [place], | | | | | | [place] [address] | | | | | | [phone] | | | | | | | | +--------+ + + + + documented as of this encounter Visit Diagnoses Not on filedocumented in this encounter"
--- OUTSIDE RECORDS SUMMARY | ~2019-09-30 | XMS | Encounter Summary ---
Demographics + + + | Address | [address] | | | [place] [address] | + + + | Home Phone [...] Providers + +------+ + | Care Operational Trainer Name | Role | Phone | [...] | [place], [place] | [place] [address] | | | | | [address] | [phone] | | | | | [phone] | | | +--------+ + + + [...] | | | | | [place] [address] | | | | | | [phone] | | | | | | | | +--------+ + + + + | 10/30/ | Office | Primary Care | Erika Ernst, | | | 2019 | Visit | | DO [address] [place] | | | | | | [place] [address] | | | | | | [phone] | | | | | | | [...] [place] | | | | | | [address] | | | | | | [phone] | | | | | | | | +--------+ + + + + | 02/09/ | Office | Neurology | Dhara, | | | 2020 | Visit | | [address] | | | | | | [address] [place], | | | | | | [place] [address] | | | | | | [phone] | | | | | | | | +--------+ + + + + documented as of this encounter Visit Diagnoses Not on filedocumented in this encounter"
--- OUTSIDE RECORDS SUMMARY | ~2019-09-30 | XMS | Encounter Summary ---
Demographics + + + | Address | [address] | | | [place] [address] | + + + | Home Phone [...] Providers + +------+ + | Care Bakery Assistant Name | Role | Phone | + +------+ + PCP | Unavailable | + +------+ + Encounter Details +--------+ + + + + | Date | Type | Department | Care Team | Description | +--------+ + + + + | 09/15/ | [facility] | [facility] | Erika Ernst, | | | 2014 | Encounter | [facility] | DO [address] | | | | | [facility]ICAL [facility] [address] | [facility] [place] [address] | | | | | [address] [facility], | [phone] | | | | | [place] [address] | | | | | | [phone] | | | +--------+ + + + [...] | | | | | [place] [address] | | | | | | [phone] | | | | | | | | +--------+ + + + + | 10/30/ | Office | Primary Care | Erika Ernst, | | | 2019 | Visit | | DO [address] [place] | | | | | | [place] [address] | | | | | | [phone] | | | | | | | [...] [place] | | | | | | [address] | | | | | | [phone] | | | | | | | | +--------+ + + + + | 02/09/ | Office | Neurology | Dhara, | | | 2020 | Visit | | [address] | | | | | | [address] [place], | | | | | | [place] [address] | | | | | | [phone] | | | | | | | | +--------+ + + + + documented as of this encounter Visit Diagnoses Not on filedocumented in this encounter"
--- OUTSIDE RECORDS SUMMARY | ~2019-09-30 | XMS | Encounter Summary ---
Demographics + + + | Address | [address] | | | [place] [address] | + + + | Home Phone [...] | [address] [place] | [facility] | | | | | [place], [place] | [place] [address] | | | | | [address] | [phone] | | | | | [phone] | | | +--------+ + + + [...] | | | | | [place] [address] | | | | | | [phone] | | | | | | | | +--------+ + + + + | 10/30/ | Office | Primary Care | Erika Ernst, | | | 2019 | Visit | | DO [address] [place] | | | | | | [place] [address] | | | | | | [phone] | | | | | | | [...] [place] | | | | | | [address] | | | | | | [phone] | | | | | | | | +--------+ + + + + | 02/09/ | Office | Neurology | Dhara, | | | 2019 | Visit | | [address] | | | | | | [address] [place], | | | | | | [place] [address] | | | | | | [phone] | | | | | | | | +--------+ + + + + documented as of this encounter Visit Diagnoses Not on filedocumented in this encounter"
--- OUTSIDE RECORDS SUMMARY | ~2019-09-30 | XMS | Encounter Summary ---
Demographics + + + | Address | [address] | | | [place] [address] | + + + | Home Phone [...] Team Providers + +------+ + | Care Wet Chemistry Analyst Name | Role | Phone | [...] | | | | [place], [place] | [address] | (Primary Dx); | | | | [address] | [phone] | Non-seasonal | | | | [phone] | | allergic rhinitis | | | [...] | | | | | [place] [address] | | | | | | [phone] | | | | | | | | +--------+ + + + + | 10/30/ | Office | Primary Care | Erika Ernst, | | | 2019 | Visit | | DO [address] [place] | | | | | | [place] [address] | | | | | | [phone] | | | | | | | [...] [place] | | | | | | [address] | | | | | | [phone] | | | | | | | | +--------+ + + + + | 02/09/ | Office | Neurology | Dhara, | | | 2020 | Visit | | [address] | | | | | | [address]TH [facility], | | | | | | [place] [address] | | | | | | [phone] | | | | | | | [...]
--- OUTSIDE RECORDS SUMMARY | ~2019-09-30 | XMS | Encounter Summary ---
Demographics + + + | Address | [address] | | | [place] [address] | + + + | Home Phone [...] Providers + +------+ + | Care Product Lister Name | Role | Phone | + [...] | [place], [place] | [place] [address] | | | | | [address] | [phone] | | | | | [phone] | | | +--------+ + + + [...] | | | | | [place] [address] | | | | | | [phone] | | | | | | | | +--------+ + + + + | 10/30/ | Office | Primary Care | Erika Ernst, | | | 2019 | Visit | | DO [address] | | | | | | [place] [address] | | | | | | [phone] | | | | | | | [...] [place] | | | | | | [address] | | | | | | [phone] | | | | | | | | +--------+ + + + + | 02/09/ | Office | Neurology | Dhara, | | | 2019 | Visit | | DWAINE [address] [place], | | | | | | [place] [address] | | | | | | [phone] | | | | | | | | +--------+ + + + + documented as of this encounter Visit Diagnoses Not on filedocumented in this encounter"
--- OUTSIDE RECORDS SUMMARY | ~2019-09-30 | XMS | Encounter Summary ---
Demographics + + + | Address | [address] | | | [place] [address] | + + + | Home Phone [...] Team Providers + +------+ + | Care Label Sewer Name | Role | Phone | + [...] | [place], [place] | [place] [address] | | | | | [address] | [phone] | | | | | [phone] | | | +--------+ + + + [...] | | | | | [place] [address] | | | | | | [phone] | | | | | | | | +--------+ + + + + | 10/30/ | Office | Primary Care | Erika Ernst, | | | 2019 | Visit | | DO [address] [place] | | | | | | [place] [address] | | | | | | [phone] | | | | | | | [...] [place] | | | | | | [address] | | | | | | [phone] | | | | | | | | +--------+ + + + + | 02/09/ | Office | Neurology | Dhara, | | | 2020 | Visit | | [address] | | | | | | [address] [place], | | | | | | [place] [address] | | | | | | [phone] | | | | | | | | +--------+ + + + + documented as of this encounter Visit Diagnoses Not on filedocumented in this encounter"
--- OUTSIDE RECORDS SUMMARY | ~2019-09-30 | XMS | Encounter Summary ---
Demographics + + + | Address | [address] | | | [place] [address] | + + + | Home Phone [...] Providers + +------+ + | Care Forestry And Wildlife Manager Name | Role | Phone | + +------+ + PCP | Unavailable | + +------+ + Encounter Details +--------+ + + + + | Date | Type | Department | Care Team | Description | +--------+ + + + + | 06/22/ | [facility] | [facility] | Conversion | | | 2011 | Encounter | [facility] | Transaction, | | | | | [facility] | Provider Unknown | | | | | 4TH [facility], | [phone] | | | | | [place] [address] | | | | | | [phone] | | | +--------+ + + + [...] | | | | | [place] [address] | | | | | | [phone] | | | | | | | | +--------+ + + + + | 10/30/ | Office | Primary Care | Erika Ernst, | | | 2019 | Visit | | DO [address] [place] | | | | | | [place] [address] | | | | | | [phone] | | | | | | | [...] [place] | | | | | | [address] | | | | | | [phone] | | | | | | | | +--------+ + + + + | 02/09/ | Office | Neurology | Dhara, | | | 2019 | Visit | | [address] | | | | | | [address] [place], | | | | | | [place] [address] | | | | | | [phone] | | | | | | | | +--------+ + + + + documented as of this encounter Visit Diagnoses Not on filedocumented in this encounter"
--- OUTSIDE RECORDS SUMMARY | ~2019-09-30 | XMS | Encounter Summary ---
Demographics + + + | Address | [address] | | | [place] [address] | + + + | Home Phone [...] Team Providers + +------+ + | Care Towel Distributor Name | Role | Phone | + [...] | | | DR MYRA [place], | [facility], [place] | | | | | [place] [address] | [address] | | | | | [phone] | [phone] | | | | | | | [...] mouth. Once a week Cholecalciferol (VITAMIN D3) 77361 units TABS Take 1 tablet by mouth [...] facility-administered medications on file prior to visit. Impregnator Helper history: Menstrual history: Patient's last menstrual period was 07/15/2019 (exact date). Control: condoms STD history: none Sexual history: Patient is sexuall active with Male. STD risk: very low risk of STD exposure. Testing desired: none ROS: General: negative -Urinary: negative -Impregnator Helper: none. Psychiatric: negative PE : Vitals: 07/17/19 [...] Time: 06/11/19 16:56 Result Value Ref Range Cherokee Screen Negative Negative Culture, Strep A, Throat [...] improve. This documentation prepared by Dioni Amaya clinical medical transcriptionist. All aspects of this chart revie wed [...] | | | | | [place] [address] | | | | | | [phone] | | | | | | | | +--------+ + + + + | 10/30/ | Office | Primary Care | Erika Ernst, | | | 2019 | Visit | | DO [address] [place] | | | | | | [place] [address] | | | | | | [phone] | | | | | | | [...] [place] | | | | | | [address] | | | | | | [phone] | | | | | | | | +--------+ + + + + | 02/09/ | Office | Neurology | Dhara, | | | 2019 | Visit | | [address] | | | | | | [address] [place], | | | | | | [place] [address] | | | | | | [phone] | | | | | | | | +--------+ + + + + documented as of this encounter Visit Diagnoses + + | Diagnosis | + + | Dysmenorrhea - Primary | + + documented in this encounter
--- OUTSIDE RECORDS SUMMARY | ~2019-09-30 | XMS | Encounter Summary ---
Demographics + + + | Address | [address] | | | [place] [address] | + + + | Home Phone [...] Providers + +------+ + | Care Plate Maker Zinc Name | Role | Phone | + [...] | Results | | 2018 | | [facility] | OBJECTIVE C DEVELOPER-WOOD TECHNOLOGIST [address] | | | | | [facility] [address] | [address] [place] | | | | | [address] [place], | [place] [address] | | | | | [place] [address] | [phone] | | | | | [phone] | | | +--------+ + + + [...] | | | | | [place] [address] | | | | | | [phone] | | | | | | | | +--------+ + + + + | 10/30/ | Office | Primary Care | Erika Ernst, | | | 2019 | Visit | | DO [address] [place] | | | | | | [place] [address] | | | | | | [phone] | | | | | | | [...] [place] | | | | | | [address] | | | | | | [phone] | | | | | | | | +--------+ + + + + | 02/09/ | Office | Neurology | Dhara, | | | 2019 | Visit | | [address] | | | | | | [address] [place], | | | | | | [place] [address] | | | | | | [phone] | | | | | | | | +--------+ + + + + documented as of this encounter Visit Diagnoses Not on filedocumented in this encounter"
--- OUTSIDE RECORDS SUMMARY | ~2019-09-30 | XMS | Encounter Summary ---
Demographics + + + | Address | [address] | | | [place] [address] | + + + | Home Phone [...] Team Providers + +------+ + | Care Biomedical Equipment Specialist Name | Role | Phone | [...] by | | 2019 | Visit | [facility] | TABBER [address] | swallowing (Primary | | | | MEDICAL CLINIC [address] | [place] [address] | Dx) | | | | [address] [place], | [phone] | | | | | [place] [address] | | | | | | [phone] | | | +--------+---------+ + + + [...] | | | | | [place] [address] | | | | | | [phone] | | | | | | | | +--------+ + + + + | 10/30/ | Office | Primary Care | Erika Ernst, | | | 2019 | Visit | | DO [address] [place] | | | | | | [place] [address] | | | | | | [phone] | | | | | | | [...] [place] | | | | | | [address] | | | | | | [phone] | | | | | | | | +--------+ + + + + | 02/09/ | Office | Neurology | Dhara, | | | 2019 | Visit | | Cody, CORRECTIONAL SUPERVISOR [address] | | | | | | [address] [place], | | | | | | [place] [address] | | | | | | [phone] | | | | | | | | +--------+ + + + + documented as of this encounter Visit Diagnoses + + | Diagnosis | + + | Pain aggravated by swallowing - Primary | + + documented in this encounter
--- OUTSIDE RECORDS SUMMARY | ~2019-09-30 | XMS | Encounter Summary ---
Demographics + + + | Address | [address] | | | [place] [address] | + + + | Home Phone [...] Providers + +------+ + | Care Plastics Spreading Machine Operator Name | Role | Phone | + +------+ + PCP | Unavailable | + +------+ + Encounter Details +--------+ + + + + | Date | Type | Department | Care Team | Description | +--------+ + + + + | 06/30/ | [facility] | Denise Mcgregor | | | 2017 | Encounter | [facility] | G, MATTRESS RENOVATOR [address] | | | | | [address] [place] | [place] | | | | | [place] | [address] | | | | | [address] | [phone] | | | | | [phone] | | | +--------+ + + + [...] | | | | | [place] [address] | | | | | | [phone] | | | | | | | | +--------+ + + + + | 10/30/ | Office | Primary Care | Erika Ernst, | | | 2019 | Visit | | DO [address] [place] | | | | | | [place] [address] | | | | | | [phone] | | | | | | | [...] [place] | | | | | | [address] | | | | | | [phone] | | | | | | | | +--------+ + + + + | 02/09/ | Office | Neurology | Dhara, | | | 2019 | Visit | | [address] | | | | | | [address] [place], | | | | | | [place] [address] | | | | | | [phone] | | | | | | | [...]
--- OUTSIDE RECORDS SUMMARY | ~2019-09-30 | XMS | Encounter Summary ---
Demographics + + + | Address | [address] | | | [place] [address] | + + + | Home Phone [...] Providers + +------+ + | Care Plastic Fabricator Name | Role | Phone | + +------+ + PCP | Unavailable | + +------+ + Encounter Details +--------+ + + + + | Date | Type | Department | Care Team | Description | +--------+ + + + + | 05/08/ | [facility] | Spenser Roberts NP | | | 2014 | Encounter | [facility] | [address], | | | | | MEDICAL CLIN[facility] [address] | [place] [address] | | | | | 4TH [facility], | [phone] | | | | | [place] [address] | | | | | | [phone] | | | +--------+ + + + [...] | | | | | [place] [address] | | | | | | [phone] | | | | | | | | +--------+ + + + + | 10/30/ | Office | Primary Care | Erika Ernst, | | | 2019 | Visit | | DO [address] [place] | | | | | | [place] [address] | | | | | | [phone] | | | | | | | [...] [place] | | | | | | [address] | | | | | | [phone] | | | | | | | | +--------+ + + + + | 02/09/ | Office | Neurology | Dhara, | | | 2020 | Visit | | [address] | | | | | | [address] [place], | | | | | | [place] [address] | | | | | | [phone] | | | | | | | | +--------+ + + + + documented as of this encounter Visit Diagnoses Not on filedocumented in this encounter"
--- OUTSIDE RECORDS SUMMARY | ~2019-09-30 | XMS | Encounter Summary ---
Demographics + + + | Address | [address] | | | [place] [address] | + + + | Home Phone [...] Team Providers + +------+ + | Care Caser Up Name | Role | Phone | + [...] CLINIC [address] | [facility] [address] | | | | | [address] [facility], | [phone] | | | | | [place] [address] | | | | | | [phone] | | | +--------+ + + + [...] | | | | | [place] [address] | | | | | | [phone] | | | | | | | | +--------+ + + + + | 10/30/ | Office | Primary Care | Erika Ernst, | | | 2019 | Visit | | DO [address] [place] | | | | | | [place] [address] | | | | | | [phone] | | | | | | | [...] [place] | | | | | | [address] | | | | | | [phone] | | | | | | | | +--------+ + + + + | 02/09/ | Office | Neurology | Dhara, | | | 2019 | Visit | | [address] | | | | | | [address] [place], | | | | | | [place] [address] | | | | | | [phone] | | | | | | | | +--------+ + + + + documented as of this encounter Visit Diagnoses Not on filedocumented in this encounter"
--- OUTSIDE RECORDS SUMMARY | ~2019-09-30 | XMS | Encounter Summary ---
Demographics + + + | Address | [address] | | | [place] [address] | + + + | Home Phone [...] Providers + +------+ + | Care Energy Sales Consultant Name | Role | Phone [...] | | | to excess | [place] [address] | [place], [place] | | | | | calories | Phone: | [address] | | | | | without | [phone] | Phone: | | | | | serious | Fax: | [phone] | | | | | comorbidity | [phone] | Fax: | | | | | with body | | [phone] | | | | | mass index [...] | | | | | | [facility] | | | | | | [...] | SERVICES [address] | [place] [address] | malignant; Morbid | | | | DR [place], [place] | [phone] | obesity (HCC); | | | | [address] | | Dietary counseling | | | | [phone] | Janel Webster, | and surveillance; | [...] | | | | | [place] [address] | | | | | | [phone] | | | | | | | | +--------+ + + + + | 10/30/ | Office | Primary Care | Erika Ernst, | | | 2019 | Visit | | DO [address] [place] | | | | | | [place] [address] | | | | | | [phone] | | | | | | | [...] [place] | | | | | | [address] | | | | | | [phone] | | | | | | | | +--------+ + + + + | 02/09/ | Office | Neurology | Dhara, | | | 2020 | Visit | | [address] | | | | | | 4TH [facility], | | | | | | [place] [address] | | | | | | [phone] | | | | | | | [...]
--- OUTSIDE RECORDS SUMMARY | ~2019-09-30 | XMS | Encounter Summary ---
Demographics + + + | Address | [address] | | | [place] [address] | + + + | Home Phone [...] + +------+ + | Care Computer Systems Software Architect Name | Role | Phone | [...] MEDICAL CLINIC [address] | [facility] [address] | | | | | [address] [facility], | [phone] | | | | | [place] [address] | | | | | | [phone] | | | +--------+ + + + [...] | | | | | [place] [address] | | | | | | [phone] | | | | | | | | +--------+ + + + + | 10/30/ | Office | Primary Care | Erika Ernst, | | | 2019 | Visit | | DO [address] [place] | | | | | | [place] [address] | | | | | | [phone] | | | | | | | [...] [place] | | | | | | [address] | | | | | | [phone] | | | | | | | | +--------+ + + + + | 02/09/ | Office | Neurology | Dhara, | | | 2019 | Visit | | [address] | | | | | | [address] [place], | | | | | | [place] [address] | | | | | | [phone] | | | | | | | | +--------+ + + + + documented as of this encounter Visit Diagnoses Not on filedocumented in this encounter"
--- OUTSIDE RECORDS SUMMARY | ~2019-09-30 | XMS | Encounter Summary ---
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 No visible white patches but patient has [...] [address] | | | | | | [phone] | | | | | | | | +--------+ + + + + | 10/30/ | Office | Primary Care | Erika Ernst, | | | 2019 | Visit | | DO [address] [place] | | | | | | [place] [address] | | | | | | [phone] | | | | | | | [...] [place] | | | | | | [address] | | | | | | [phone] | | | | | | | | +--------+ + + + + | 02/09/ | Office | Neurology | Dhara, | | | 2019 | Visit | | [address] | | | | | | [address] [place], | | | | | | [place] [address] | | | | | | [phone] | | | | | | | [...]
--- OUTSIDE RECORDS SUMMARY | ~2019-09-30 | XMS | Encounter Summary ---
Demographics + + + | Address | [address] | | | [place] [address] | + + + | Home Phone [...] Providers + +------+ + | Care Electrical Accessories I Assembler Name | Role | Phone | + +------+ + PCP | Unavailable | + +------+ + Encounter Details +--------+ + + + + | Date | Type | Department | Care Team | Description | +--------+ + + + + | 09/08/ | [facility] | Jessica Hoang, | | | 2013 | Encounter | [facility] | [address] | | | | | CENTER [address] | [place] | | | | | [place] | [address] | | | | | [address] | | | | | | [phone] | | | +--------+ + + + [...] | | | | | [place] [address] | | | | | | [phone] | | | | | | | | +--------+ + + + + | 10/30/ | Office | Primary Care | Erika Ernst, | | | 2019 | Visit | | DO [address] [place] | | | | | | [place] [address] | | | | | | [phone] | | | | | | | [...] [place] | | | | | | [address] | | | | | | [phone] | | | | | | | | +--------+ + + + + | 02/09/ | Office | Neurology | Dhara, | | | 2020 | Visit | | [address] | | | | | | [address] [place], | | | | | | [place] [address] | | | | | | [phone] | | | | | | | | +--------+ + + + + documented as of this encounter Visit Diagnoses Not on filedocumented in this encounter"
--- OUTSIDE RECORDS SUMMARY | ~2019-09-30 | XMS | Encounter Summary ---
Demographics + + + | Address | [address] | | | [place] [address] | + + + | Home Phone [...] | [place], [place] | [place] [address] | | | | | [address] | [phone] | | | | | [phone] | | | +--------+ + + + [...] | | | | | [place] [address] | | | | | | [phone] | | | | | | | | +--------+ + + + + | 10/30/ | Office | Primary Care | Erika Ernst, | | | 2019 | Visit | | DO [address] [place] [address] | | | | | | [place] [address] | | | | | | [phone] | | | | | | | [...] [place] | | | | | | [address] | | | | | | [phone] | | | | | | | | +--------+ + + + + | 02/09/ | Office | Neurology | Dhara, | | | 2019 | Visit | | [address] | | | | | | [address] [place], | | | | | | [place] [address] | | | | | | [phone] | | | | | | | | +--------+ + + + + documented as of this encounter Visit Diagnoses Not on filedocumented in this encounter"
--- OUTSIDE RECORDS SUMMARY | ~2019-09-30 | XMS | Encounter Summary ---
Demographics + + + | Address | [address] | | | [place] [address] | + + + | Home Phone [...] Providers + +------+ + | Care Manager Fleet Name | Role | Phone | + [...] | [place], [place] | [place] [address] | | | | | [address] | [phone] | | | | | [phone] | | | +--------+ + + + [...] 2018 | Visit | | DO [address] [facility] | | | | | | [place] [address] | | | | | | [phone] | | | | | | | | +--------+ + + + + | 10/30/ | Office | Primary Care | Erika Ernst, | | | 2019 | Visit | | DO [address] [place] | | | | | | [place] [address] | | | | | | [phone] | | | | | | | [...] [place] | | | | | | [address] | | | | | | [phone] | | | | | | | | +--------+ + + + + | 02/09/ | Office | Neurology | Dhara, | | | 2020 | Visit | | [address] | | | | | | [address] [place], | | | | | | [place] [address] | | | | | | [phone] | | | | | | | | +--------+ + + + + documented as of this encounter Visit Diagnoses Not on filedocumented in this encounter"
--- OUTSIDE RECORDS SUMMARY | ~2019-09-30 | XMS | Encounter Summary ---
Demographics + + + | Address | [address] | | | [place] [address] | + + + | Home Phone [...] Providers + +------+ + | Care Steel Division Supervisor Name | Role | Phone | [...] [facility] | HOCKEY PLAYER | | | | | MEDICAL CLINIC [address] | | | | | | 4TH [facility] [place], | | | | | | [place] [address] | | | | | | [phone] | | | +--------+ + + + [...] | | | | | [place] [address] | | | | | | [phone] | | | | | | | | +--------+ + + + + | 10/30/ | Office | Primary Care | Erika Ernst, | | | 2019 | Visit | | DO [address] [place] | | | | | | [place] [address] | | | | | | [phone] | | | | | | | [...] [place] | | | | | | [address] | | | | | | [phone] | | | | | | | | +--------+ + + + + | 02/09/ | Office | Neurology | Dhara, | | | 2019 | Visit | | [address] | | | | | | [address] [place], | | | | | | [place] [address] | | | | | | [phone] | | | | | | | | +--------+ + + + + documented as of this encounter Visit Diagnoses Not on filedocumented in this encounter"
--- OUTSIDE RECORDS SUMMARY | ~2019-09-30 | XMS | Encounter Summary ---
Demographics + + + | Address | [address] | | | [place] [address] | + + + | Home Phone [...] Providers + +------+ + | Care Claim Specialist Name | Role | Phone | [...] Essential | | 2018 | Visit | [facility] | DO [address] [place] | hypertension | | | | MEDICAL CLINIC [address] | [place] [address] | (Primary Dx); Asthma | | | | [address] [place], | [phone] | due to | | | | [place] [address] | | environmental | | | | [phone] | | allergies; Asthma, | | | [...] | | | | | [place] [address] | | | | | | [phone] | | | | | | | | +--------+ + + + + | 10/30/ | Office | Primary Care | Erika Ernst, | | | 2019 | Visit | | DO [address] [place] | | | | | | [place] [address] | | | | | | [phone] | | | | | | | [...] [place] | | | | | | [address] | | | | | | [phone] | | | | | | | | +--------+ + + + + | 02/09/ | Office | Neurology | Dhara, | | | 2019 | Visit | | [address] | | | | | | [address] [place], | | | | | | [place] [address] | | | | | | [phone] | | | | | | | [...]
--- OUTSIDE RECORDS SUMMARY | ~2019-09-30 | XMS | Encounter Summary ---
Demographics + + + | Address | [address] | | | [place] [address] | + + + | Home Phone [...] Providers + +------+ + | Care Dry Pan Feeder Name | Role | Phone | [...] | | | | s (de | [place], [place] | [place] [address] | | | | | quervain) | [address] | Phone: | | | | | Pain in | Phone: | [phone] | | | | | right wrist | [phone] | Fax: | | | | | Procedures | Fax: | [phone] | | | | | OT TREAT | [phone] | | +--------+--------+ + + + + [...] | | [address] [place] | [place] [address] | (Primary Dx); Right | | | | [place], [place] | [phone] | wrist pain | | | | [address] | | | | | | [phone] | Nakia Koo OT | | +--------+ [...] | 11/26/19 | | | (VITAMIN D3) [address] | mouth Once a week | tablet [...] Koo OT - 12/03/2018 5:18 PM PST [facility] [address] [place] [address] Occupational Therapy Daily Treatment Note Date: 12/03/2018 [...] period and is compliant with wrist and dental ceramist assistant strengthening exercises. 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 Her j ob description may be changing which would decrease the physical demands of her work, making it more appropriate for her current status. She continues to benefit from Wire Splicer apy to maximize her dental ceramist assistant strength and wrist stability following this injury and return her t o prior level of function. 10/30/2018 - REASON FOR RE-CERTIFICATION: Andrea has received 12 Occupational Therapy treatme nts since 08/07/2018 following her right wrist surgery. She has regained full AROM of the rig ht wrist but continues to have right wrist, dental ceramist assistant and pinch weakness and significant pain (3- [...] in 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, and dental ceramist assistant and pinch weakness in the right hand [...] | | | | | [place] [address] | | | | | | [phone] | | | | | | | | +--------+ + + + + | 10/30/ | Office | Primary Care | Erika Ernst, | | | 2019 | Visit | | DO [address] [place] | | | | | | [place] [address] | | | | | | [phone] | | | | | | | [...] [place] | | | | | | [address] | | | | | | [phone] | | | | | | | | +--------+ + + + + | 02/09/ | Office | Neurology | Dhara, | | | 2019 | Visit | | [address] | | | | | [address] [place], | | | | | | [place] [address] | | | | | | [phone] | | | | | | | | +--------+ + + + + documented as of this encounter Visit Diagnoses + + | Diagnosis | + + | Radial styloid tenosynovitis - Primary | + + | Right wrist pain Pain in joint, forearm | + + documented in this encounter"
--- OUTSIDE RECORDS SUMMARY | ~2019-09-30 | XMS | Encounter Summary ---
Demographics + + + | Address | [address] | | | [place] [address] | + + + | Home Phone [...] Providers + +------+ + | Care Concrete Mixer Truck Driver Name | Role | Phone [...] | | | of left | [place] [address] | [place], [place] | | | | | ankle, | Phone: | [address] | | | | | subsequent | [phone] | Phone: | | | | | encounter | Fax: | [phone] | | | | | Procedures | [phone] | Fax: | | | | | [place] | | [phone] | +--------+ + + + + + [...] | [place], [place] | [place] [address] | encounter (Primary | | | | [address] | [phone] | Dx); Morbid obesity | | | | [phone] | | (HCC) | +--------+---------+ + + [...] although I will send her to our music journalist Dr. Mittal for a second opin ion [...] Heart attack Maternal Aunt [place] Social History Social History Marital status: Single [...] and their vital signs recorded by my commercial escrow assistant today, a s found in this chart note. Electronically signed by: Abhi Grimes DO 11/16/2018 at 8:24 Note: Part of this report was transcribed using voice recognition software. Every effort wa s made to ensure accuracy. However, inadvertent computerized procedure analyst errors may be pre sent. CC: [...] | | | | | [place] [address] | | | | | | [phone] | | | | | | | | +--------+ + + + + | 10/30/ | Office | Primary Care | Erika Ernst, | | | 2019 | Visit | | DO [address] [place] | | | | | | [place] [address] | | | | | | [phone] | | | | | | | [...] [place] | | | | | | [address] | | | | | | [phone] | | | | | | | | +--------+ + + + + | 02/09/ | Office | Neurology | Dhara, | | | 2020 | Visit | | DWAINE Ross [address] | | | | | [address] [facility], | | | | | | [place] [address] | | | | | | [phone] | | | | | | | [...]
--- OUTSIDE RECORDS SUMMARY | ~2019-09-30 | XMS | Encounter Summary ---
Demographics + + + | Address | [address] | | | [place] [address] | + + + | Home Phone [...] Team Providers + +------+ + | Care Targeting Acquisition Officer Name | Role | Phone | [...] [place] | | | | | | [address] | | | | | | [phone] | | | +--------+ + + + [...] | 11/26/19 | | | (VITAMIN D3) 16800 | mouth Once a week | tablet [...] | | | | | [place] [address] | | | | | | [phone] | | | | | | | | +--------+ + + + + | 10/30/ | Office | Primary Care | Erika Ernst, | | | 2019 | Visit | | DO [address] | | | | | | [place] [address] | | | | | | [phone] | | | | | | | [...] [place] | | | | | | [address] | | | | | | [phone] | | | | | | | | +--------+ + + + + | 02/09/ | Office | Neurology | Dhara, | | | 2019 | Visit | | DWAINE Ross [address] | [address] [place], | | | | | | [place] [address] | | | | | | [phone] | | | | | | | [...] C?MRN: | | | | | | [id number] | | | [id number] | | | riteri | | | [...] | | | St. | | | [place] | | | y | | | [...] | | | St. | | | [place] | | | y H. | | [...] | | | ent/[id number] | | | [id number] | | | -[id number]- | | | [id number]-[id number] | | | 61c-15 | | | [id number] | | | 7078 | | | [...]
--- OUTSIDE RECORDS SUMMARY | ~2019-09-30 | XMS | Encounter Summary ---
Demographics + + + | Address | [address] | | | [place] [address] | + + + | Home Phone [...] Team Providers + +------+ + | Care Eligibility Manager Name | Role | Phone | [...] | | | | [address] | [place] [address] | | | | | [place], [place] | [phone] | | | | | [address] | | | | | | [phone] | | | +--------+ + + + [...] | | | | | [place] [address] | | | | | | [phone] | | | | | | | | +--------+ + + + + | 10/30/ | Office | Primary Care | Erika Ernst, | | | 2019 | Visit | | DO [address] | | | | | | [place] [address] | | | | | | [phone] | | | | | | | [...] [place] | | | | | | [address] | | | | | | [phone] | | | | | | | | +--------+ + + + + | 02/09/ | Office | Neurology | Dhara, | | | 2019 | Visit | | DWAINE Ross [address] | | | | [address] [place], | | | | | | [place] [address] | | | | | | [phone] | | | | | | | [...]
--- OUTSIDE RECORDS SUMMARY | ~2019-09-30 | XMS | Encounter Summary ---
Demographics + + + | Address | [address] | | | [place] [address] | + + + | Home Phone [...] + +------+ + | Care Energy Sales Broker Name | Role | Phone | [...] deficiency | | 2019 | Visit | [facility] | DO [address] | (Primary Dx); | | | | [facility] | [place] [address] | Essential | | | | [address] [place], | [phone] | hypertension; Asthma | | | | [place] [address] | | due to | | | | [phone] | | environmental | | | | [...] + documented in this encounter Progress Notes Eriak Ernst, DO - 02/28/2019 10:00 AM PDTFormatting [...] | | | | | [place] [address] | | | | | | [phone] | | | | | | | | +--------+ + + + + | 10/30/ | Office | Primary Care | Erika Ernst, | | | 2019 | Visit | | DO [address] | | | | | | [place] [address] | | | | | | [phone] | | | | | | | [...] [place] | | | | | | [address] | | | | | | [phone] | | | | | | | | +--------+ + + + + | 02/09/ | Office | Neurology | Dhara, | | | 2019 | Visit | | [address]WA[address] Ross [address] [place], | | | | | | [place] [address] | | | | | | [phone] | | | | | | | [...] + + | [place] [facility] | [address] | [place] [address] | [phone] | | [facility] | | | [...]
--- OUTSIDE RECORDS SUMMARY | ~2019-09-30 | XMS | Encounter Summary ---
Demographics + + + | Address | [address] | | | [place] [address] | + + + | Home Phone [...] + + + + | 07/17/ | [facility] | [place] | Erika Ernst, | Acute right ankle | | 2019 | Encounter | HOSPITAL XRAY [address] | DO [address] | pain | | | | [address] [place] | [place] [address] | | | | | [place], [place] | [phone] | | | | | [address] | | | | | | [phone] | | | +--------+ + + + [...] | 04/12/20 | | | (VITAMIN D3) 89337 | mouth Once a week | tablet [...] | | | | | [place] [address] | | | | | | [phone] | | | | | | | | +--------+ + + + + | 10/30/ | Office | Primary Care | Erika Ernst, | | | 2019 | Visit | | DO [address] | | | | | | [place] [address] | | | | | | [phone] | | | | | | | [...] [place] | | | | | | [address] | | | | | | [phone] | | | | | | | | +--------+ + + + + | 02/09/ | Office | Neurology | Dhara, | | | 2019 | Visit | | DWAINE Ross [address] | | [address] [place], | | | | | | [place] [address] | | | | | | [phone] | | | | | | | [...]
--- OUTSIDE RECORDS SUMMARY | ~2019-09-30 | XMS | Encounter Summary ---
Demographics + + + | Address | [address] | | | [place] [address] | + + + | Home Phone [...] + +------+ + | Care Dental Hygiene Teacher Name | Role | Phone | [...] | | | | encounter | [place] [address] | [place], | | | | | | Phone: | [place] | | | | | | [phone] | [address] | | | | | | Fax: | Phone: | | | | | | [phone] | [phone] | | | | | | | Fax: | | | | | | | [phone] | +--------+ + + + + + [...] | MEDICAL CLINIC [address] | [place] [address] | encounter (Primary | | | | [address] [place], | [phone] | Dx) | | | | [place] [address] | | | | | | [phone] | | | +--------+ + + + [...] 2018 | Visit | | DO [address] [place] [address] | | | | | | [place] [address] | | | | | | [phone] | | | | | | | | +--------+ + + + + | 10/30/ | Office | Primary Care | Erika Ernst, | | | 2019 | Visit | | DO [address] | | | | | | [place] [address] | | | | | | [phone] | | | | | | | [...] [place] | | | | | | [address] | | | | | | [phone] | | | | | | | | +--------+ + + + + | 02/09/ | Office | Neurology | Dhara, | | | 2019 | Visit | | [address]WA[address] Ross [address] | | | [address] [place], | | | | | | [place] [address] | | | | | | [phone] | | | | | | | [...]
--- OUTSIDE RECORDS SUMMARY | ~2019-09-30 | XMS | Encounter Summary ---
Demographics + + + | Address | [address] | | | [place] [address] | + + + | Home Phone [...] Providers + +------+ + | Care Hat Band Attacher Name | Role | Phone | + [...] | [address] | | | | | [address] | | | | | | [phone] | | | +--------+ + + + [...] | | | | | [place] [address] | | | | | | [phone] | | | | | | | | +--------+ + + + + | 10/30/ | Office | Primary Care | Erika Ernst, | | | 2019 | Visit | | DO [address] | | | | | | [place] [address] | | | | | | [phone] | | | | | | | [...] [place] | | | | | | [address] | | | | | | [phone] | | | | | | | | +--------+ + + + + | 02/09/ | Office | Neurology | Dhara, | | | 2020 | Visit | | [address]WA[address] | | | | | | [address] [place], | | | | | | [place] [address] | | | | | | [phone] | | | | | | | | +--------+ + + + + documented as of this encounter Visit Diagnoses Not on filedocumented in this encounter"
--- OUTSIDE RECORDS SUMMARY | ~2019-09-30 | XMS | Encounter Summary ---
Demographics + + + | Address | [address] | | | [place] [address] | + + + | Home Phone [...] Team Providers + +------+ + | Care Drawing Checker Name | Role | Phone | [...] Follow-up | | 2019 | | [facility] | DO Jackelyn Garcia | | | | | [address] [place] | [address] [place] | | | | | [place], [place] | [place] | | | | | [address] | [address] | | | | | [phone] | [phone] | | | | | | | [...] | | | | | [place] [address] | | | | | | [phone] | | | | | | | | +--------+ + + + + | 10/30/ | Office | Primary Care | Erika Ernst, | | | 2019 | Visit | | DO [address] [place] [address] | | | | | | [place] [address] | | | | | | [phone] | | | | | | | [...] [place] | | | | | | [address] | | | | | | [phone] | | | | | | | | +--------+ + + + + | 02/09/ | Office | Neurology | Dhara, | | | 2019 | Visit | | [address] | | | | | | [address] [place], | | | | | | [place] [address] | | | | | | [phone] | | | | | | | | +--------+ + + + + documented as of this encounter Visit Diagnoses Not on filedocumented in this encounter"
--- OUTSIDE RECORDS SUMMARY | ~2019-09-30 | XMS | Encounter Summary ---
Demographics + + + | Address | [address] | | | [place] [address] | + + + | Home Phone [...] Providers + +------+ + | Care Cell Repairer Name | Role | Phone | [...] | | | | s (de | [place], [place] | [place] [address] | | | | | quervain) | [address] | Phone: | | | | | Pain in | Phone: | [phone] | | | | | right wrist | [phone] | Fax: | | | | | Procedures | Fax: | [phone] | | | | | OT TREAT | [phone] | | +--------+--------+ + + + + [...] | | [address] [place] | [place] [address] | (Primary Dx); Right | | | | [place], [place] | [phone] | wrist pain | | | | [address] | | | | | | [phone] | Nakia Koo OT | | +--------+ [...] | 11/26/19 | | | (VITAMIN D3) 03159 | mouth Once a week | tablet [...] Koo OT - 12/03/2018 5:18 PM PST [facility] OT [address] [place] [address] Occupational Therapy Daily Treatment Note Date: 12/03/2018 [...] period and is compliant with wrist and broomcorn scraper strengthening exercises. She does still hav e deficits in broomcorn scraper strength and wrist stability as well as pain with daily activities. Her j ob description may be changing which would decrease the physical demands of her work, making it more appropriate for her current status. She continues to benefit from Business Law Professor apy to maximize her broomcorn scraper strength and wrist stability following this injury and return her t o prior level of function. 10/30/2018 - REASON FOR RE-CERTIFICATION: Andrea has received 12 Occupational Therapy treatme nts since 08/07/2018 following her right wrist surgery. She has regained full AROM of the rig ht wrist but continues to have right wrist, broomcorn scraper and pinch weakness and significant pain (3- [...] in 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, and broomcorn scraper and pinch weakness in the right hand [...] | | | | | [place] [address] | | | | | | [phone] | | | | | | | | +--------+ + + + + | 10/30/ | Office | Primary Care | Erika Ernst, | | | 2019 | Visit | | DO [address] | | | | | | [place] [address] | | | | | | [phone] | | | | | | | [...] [place] | | | | | | [address] | | | | | | [phone] | | | | | | | | +--------+ + + + + | 02/09/ | Office | Neurology | Dhara, | | | 2019 | Visit | | [address] | | [address] [place], | | | | | | [place] [address] | | | | | | [phone] | | | | | | | | +--------+ + + + + documented as of this encounter Visit Diagnoses + + | Diagnosis | + + | Radial styloid tenosynovitis - Primary | + + | Right wrist pain Pain in joint, forearm | + + documented in this encounter"
--- OUTSIDE RECORDS SUMMARY | ~2019-09-30 | XMS | Encounter Summary ---
Demographics + + + | Address | [address] | | | [place] [address] | + + + | Home Phone [...] Providers + +------+ + | Care School Psychology Professor Name | Role | Phone | [...] | | | | syndrome | [place] [address] | [place], [place] | | | | | | Phone: | [address] Phone: | | | | | | [phone] | [phone] | | | | | | Fax: | Fax: | | | | | | [phone] | [phone] | + + + + + + [...] [address] | | | | | [place] [address] | | | | | | [phone] | | | +--------+---------+ + + + [...] be different from the original. Patient Instructions [facility] Neurology Clinic Dr. Luis Nichole, Neurologist Date:08/12/2019 [...] le, and scrabble, other puzzle games like SudLendingStandardu, Sterling Canyonjong. Play computer/mobile applications such as Omise and MIND GAMES Neurologically improving Continue with LINDA ChanelW in [place] Any Questions please call BAKARI Terrell or Dr. Nichole at [facility] Neurology Clinic Coping with Concussion Concussion is [...] bath or taking a hot shower. Take feky-tyf-xmwtggz acetaminophen to relieve headache pain. Take them [...] treatment y ou need. Date Last Reviewed: 10/02/201719999214-[address] [place] [address], [place] [address]. All righ ts reserved. This information is not intended as a substitute for professional medical care. Always follow your healthcare professional's instructions. Problems with Thinking Skills After Brain Injury One of the brain s main roles is to allow a person to think, remember, reason, and public health epidemiologist. After a brain injury, a person may be less able to coordinate sequential activities (apraxi a), process thought (agnosia), or use language (aphasia). At first, therapy may be provided by medical lab specialist, physical therapists, and occupational therapists,but it often [...] Favorite clothes Posters Music Date Last Reviewed: 09/01/201719992043-[address] [place] [address], [place] [address]. All righ ts reserved. This information is [...] anxiety symptoms. You are not alone. Your [facility] provider is aware of the risks of [...] for anxiety and TBI. Date Last Reviewed: 04/01/201619992527-0428 [address] [place] [address], [place] [address]. All righ ts reserved. This information is [...] types: moderate TBI and severe TBI. Your [facility] team will decide if your TBI is [...] primo e to heal. Date Last Reviewed: 09/01/201719996291-4720 [employer] [address] [facility], [place] [address]. All [facility] ts reserved. This information is not intended [...] have had a TBI. Date Last Reviewed: 10/02/201719997283-[address] [place] [address], [place] [address]. All righ ts reserved. This information is not intended as a substitute for professional medical care. Always follow your healthcare professional's instructions. 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 [facility] was performed by Olga Rajput, PHD. I discussed with Miss Mason that s jessie she is clinically improving taking no medications at this time but she is to follow-up with her psychologist, LINDA ChanelW in [facility]. She has been using BuSpar for [...] CEREBELLAR EXAMINATION: There is no dysmetria on wzrtdy-nf-shug test. MISCELLANEOUS EXAM: Well Kept, well nourished, [...] le, and scrabble, other puzzle games like Glowpoint, u.sit. Play computer/mobile applications such as Omise and Backchat GAMES Continue with Ms Boston LCSW in [place] Any Questions please call BAKARI Terrell or Dr. Nichole at [facility] Neurology Clinic Luis Nichole MD08/12/201911:55 AM Electronically signed NOTE: Part of this report was transcribed using voice recognition software. Every effort was made to ensure accuracy. However, inadvertent computerize character impersonator errors may be present documented in this [...] | | | | | [place] [address] | | | | | | [phone] | | | | | | | | +--------+ + + + + | 10/30/ | Office | Primary Care | Erika Ernst, | | | 2019 | Visit | | DO [address] [place] | | | | | | [place] [address] | | | | | | [phone] | | | | | | | [...] [place] | | | | | | [address] | | | | | | [phone] | | | | | | | | +--------+ + + + + | 02/09/ | Office | Neurology | Dhara, | | | 2019 | Visit | | [address] | | | | [address] [place], | | | | | | [place] [address] | | | | | | [phone] | | | | | | | [...]
--- OUTSIDE RECORDS SUMMARY | ~2019-09-30 | XMS | Encounter Summary ---
Demographics + + + | Address | [address] | | | [place] [address] | + + + | Home Phone [...] Providers + +------+ + | Care Physical Security Specialist Name | Role | Phone | [...] | | | of left | [place] [address] | [place] [address] | | | | | ankle, | Phone: | Phone: | | | | | initial | [phone] | [phone] | | | | | encounter | Fax: | Fax: | | | | | Procedures | [phone] | [phone] | | | | | PT EVAL [...] [address] | [place] [address] | ligament of left | | | | [place], [place] | [phone] | ankle, initial | | | | [address] | | encounter | | | | [phone] | Nick Barrios I, PT | | [...] might be different hannah tan the original. [facility] PT [address] [place] [address] Physical Therapy Daily Treatment Note Date: 07/12/2018 [...] 10/01/ | Office | Primary Care | Klever, Erika A, | | | 2018 | Visit | | DO [address] | | | | | | [place] [address] | | | | | | [phone] | | | | | | | | +--------+ + + + + | 10/30/ | Office | Primary Care | Erika Ernst, | | | 2019 | Visit | | DO [address] [place] | | | | | | [place] [address] | | | | | | [phone] | | | | | | | [...] [place] | | | | | | [address] | | | | | | [phone] | | | | | | | | +--------+ + + + + | 02/09/ | Office | Neurology | Dhara, | | | 2019 | Visit | | [address] | | | | | | [address] [place], | | | | | | [place] [address] | | | | | | [phone] | | | | | | | | +--------+ + + + + documented as of this encounter Visit Diagnoses + + | Diagnosis | + + | Sprain of calcaneofibular ligament of left ankle, initial encounter | + + documented in this encounter"
--- OUTSIDE RECORDS SUMMARY | ~2019-09-30 | XMS | Encounter Summary ---
Demographics + + + | Address | [address] | | | [place] [address] | + + + | Home Phone [...] Providers + +------+ + | Care Chief Engineer Name | Role | Phone | [...] Paperwork | | 2018 | | [facility] | DO [address] | | | | | MEDICAL CLIN[facility] [address] | [place] [address] | | | | | [address] [place], | [phone] | | | | | [place] [address] | | | | | | [phone] | | | +--------+ + + + [...] | | | | | [place], [place] [address] | | | | | | [phone] | | | | | | | | +--------+ + + + + | 10/30/ | Office | Primary Care | Erika Ernst, | | | 2019 | Visit | | DO [address] [place] | | | | | | [place] [address] | | | | | | [phone] | | | | | | | [...] [place] | | | | | | [address] | | | | | | [phone] | | | | | | | | +--------+ + + + + | 02/09/ | Office | Neurology | Dhara, | | | 2019 | Visit | | [address] | | | | [address] [place], | | | | | | [place] [address] | | | | | | [phone] | | | | | | | | +--------+ + + + + documented as of this encounter Visit Diagnoses Not on filedocumented in this encounter"
--- OUTSIDE RECORDS SUMMARY | ~2019-09-30 | XMS | Encounter Summary ---
Demographics + + + | Address | [address] | | | [place] [address] | + + + | Home Phone [...] Providers + +------+ + | Care Home Stereo Equipment Installer Name | Role | Phone | [...] | [address] [place], [place] | [place] [address] | | | | | [address] | [phone] | | | | | [phone] | | | +--------+ + + + [...] | | | | | [place] [address] | | | | | | [phone] | | | | | | | | +--------+ + + + + | 10/30/ | Office | Primary Care | Erika Ernst, | | | 2019 | Visit | | DO [address] [place] | | | | | | [place] [address] | | | | | | [phone] | | | | | | | [...] | | | | | | [place], [place] | | | | | | [address] | | | | | | [phone] | | | | | | | | +--------+ + + + + | 02/09/ | Office | Neurology | Dhara, | | | 2020 | Visit | | [address] | | [address] [place], | | | | | | [place] [address] | | | | | | [phone] | | | | | | | | +--------+ + + + + documented as of this encounter Visit Diagnoses Not on filedocumented in this encounter"
--- OUTSIDE RECORDS SUMMARY | ~2019-09-30 | XMS | Encounter Summary ---
Demographics + + + | Address | [address] | | | [place] [address] | + + + | Home Phone [...] Team Providers + +------+ + | Care Unemployment Specialist Name | Role | Phone | [...] [address] [place] | [place] [address] | | | | | [place], [place] | [phone] | | | | | [address] | | | | | | [phone] | | | +--------+ + + + [...] | 04/12/20 | | | (VITAMIN D3) 75958 | mouth Once a week | tablet [...] | | | | | [place] [address] | | | | | | [phone] | | | | | | | | +--------+ + + + + | 10/30/ | Office | Primary Care | Erika Ernst, | | | 2019 | Visit | | DO [address] | | | | | | [place] [address] | | | | | | [phone] | | | | | | | [...] [place] | | | | | | [address] | | | | | | [phone] | | | | | | | | +--------+ + + + + | 02/09/ | Office | Neurology | Dhara, | | | 2019 | Visit | | [address] | | | | | | 4TH [facility], | | | | | | [place] [address] | | | | | | [phone] | | | | | | | [...]
--- OUTSIDE RECORDS SUMMARY | ~2019-09-30 | XMS | Encounter Summary ---
Demographics + + + | Address | [address] | | | [place] [address] | + + + | Home Phone [...] Providers + +------+ + | Care Chief Cook Name | Role | Phone | + +------+ + | Erika Ernst DO | PCP | | + +------+ + Encounter Details +--------+ + + + + | Date | Type | Department | Care Team | Description | +--------+ + + + + | 09/26/ | Orders Only | [place] | Veronica Huerta, | | | 2018 | | [facility] | [facility] | | | | | MEDICAL CLIN[facility] [address] | | | | | | [address] [facility], | | | | | | [place] [address] | | | | | | [phone] | | | +--------+ + + + [...] | | | | | [place] [address] | | | | | | [phone] | | | | | | | | +--------+ + + + + | 10/30/ | Office | Primary Care | Erika Ernst, | | | 2019 | Visit | | DO [address] [place] | | | | | | [place] [address] | | | | | | [phone] | | | | | | | [...] [place] | | | | | | [address] | | | | | | [phone] | | | | | | | | +--------+ + + + + | 02/09/ | Office | Neurology | Dhara, | | | 2019 | Visit | | [address] | | | [address] [place], | | | | | | [place] [address] | | | | | | [phone] | | | | | | | | +--------+ + + + + documented as of this encounter Visit Diagnoses Not on filedocumented in this encounter"
--- OUTSIDE RECORDS SUMMARY | ~2019-09-30 | XMS | Encounter Summary ---
Demographics + + + | Address | [address] | | | [place] [address] | + + + | Home Phone [...] Providers + +------+ + | Care Manager Coding Name | Role | Phone | + [...] persistent | | 2019 | Visit | [facility] | TRUMPET TEACHER-SURGICAL PATHOLOGIST [address] | asthma with (acute) | | | | [facility] [address] | [address] | exacerbation | | | | [address] [facility] | [place] [address] | (Primary Dx) | | | | [place] [address] | [phone] | | | | | [phone] | | | +--------+---------+ + + + [...] more than every 4 hours, contact [facility] or seek immediate medical attention. [...] don't already have one, talk to your [facility] are provider about developing your own [...] turning echevarria or blue Date Last Reviewed: 01/30/201719993468-2004 [employer]. [address] [place] [address], [place] [address]. All righ ts reserved. This information is [...] mouth. Once a week Cholecalciferol (VITAMIN D3) 95015 units TABS Take 1 tablet by mouth [...] pcp. Electronically signed by: Alem Guerrero [id number] [facility] Note: Part of this report was transcribed using voice recognition software. Every effort wa s made to ensure accuracy. However, inadvertent computerized surgical appliances salesperson errors may be pre sent. Linh rubin [...] | | | | | [place] [address] | | | | | | [phone] | | | | | | | | +--------+ + + + + | 10/30/ | Office | Primary Care | Erika Ernst, | | | 2019 | Visit | | DO [address] [place] | | | | | | [place] [address] | | | | | | [phone] | | | | | | | [...] [place] | | | | | | [address] | | | | | | [phone] | | | | | | | | +--------+ + + + + | 02/09/ | Office | Neurology | Dhara, | | | 2019 | Visit | | [address] | | | [address] [place], | | | | | | [place] [address] | | | | | | [phone] | | | | | | | | +--------+ + + + + documented as of this encounter Visit Diagnoses + + | Diagnosis | + + | Moderate persistent asthma with (acute) exacerbation - Primary | + + documented in this encounter
--- OUTSIDE RECORDS SUMMARY | ~2019-09-30 | XMS | Encounter Summary ---
Demographics + + + | Address | [address] | | | [place] [address] | + + + | Home Phone [...] Providers + +------+ + | Care Event Lighting Specialist Name | Role | Phone | [...] | | | | s (de | [place], [place] | [place] [address] | | | | | quervain) | [address] | Phone: | | | | | Pain in | Phone: | [phone] | | | | | right wrist | [phone] | Fax: | | | | | Procedures | Fax: | [phone] | | | | | OT TREAT | [phone] | | +--------+--------+ + + + + [...] | | [address] | [place] [address] | (Primary Dx); Right | | | | [place], [place] | [phone] | wrist pain | | | | [address] | | | | | | [phone] | Michela Azevedo, | | | | [...] | 11/26/19 | | | (VITAMIN D3) 72073 | mouth Once a week | tablet [...] might be different f rom the original. [facility] OT [address] [place] [address] Occupational Therapy Daily Treatment Note Date: 12/19/2018 [...] Patient Name: Andrea Suh/: 1990/ Start Time: 09 Stop time: 937 Duration: 38 minutes Timed Treatment Codes: 38 [...] period and is compliant with wrist and ehs specialist strengthening exercises. She does still hav e deficits in ehs specialist strength and wrist stability as well as pain with daily activities. Her j ob description may be changing which would decrease the physical demands of her work, making it more appropriate for her current status. She continues to benefit from [place] apy to maximize her ehs specialist strength and wrist stability following this injury and return her t o prior level of function. 10/30/2018 - REASON FOR RE-CERTIFICATION: Andrea has received 12 Occupational Therapy treatme nts since 08/07/2018 following her right wrist surgery. She has regained full AROM of the rig ht wrist but continues to have right wrist, ehs specialist and pinch weakness and significant pain (3- 6/10) with daily activities with associated decline in functional performance, in part becau se she still has a lifting restriction of 15 lbs. She has returned to modified work duty. Sh romario continues to benefit from Occupational Therapy to [...] in 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, and ehs specialist and pinch weakness in the right hand with associated decrease in functional use of her right hand. 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 She has not returned to work since [...] Azevedo OT, 12/19/2018 15:22 Patient Name: Andrea Suh/: 1990/ documented in [...] | | | | | [place] [address] | | | | | | [phone] | | | | | | | | +--------+ + + + + | 10/30/ | Office | Primary Care | Erika Ernst, | | | 2019 | Visit | | DO [address] [place] | | | | | | [place] [address] | | | | | | [phone] | | | | | | | [...] [place] | | | | | | [address] | | | | | | [phone] | | | | | | | | +--------+ + + + + | 02/09/ | Office | Neurology | Dhara, | | | 2019 | Visit | | [address]WA[address] | | | | [address] [place], | | | | | | [place] [address] | | | | | | [phone] | | | | | | | | +--------+ + + + + documented as of this encounter Visit Diagnoses + + | Diagnosis | + + | Radial styloid tenosynovitis - Primary | + + | Right wrist pain Pain in joint, forearm | + + documented in this encounter"
--- OUTSIDE RECORDS SUMMARY | ~2019-09-30 | XMS | Encounter Summary ---
Demographics + + + | Address | [address] | | | [place] [address] | + + + | Home Phone [...] Team Providers + +------+ + | Care Firearms Model Maker Name | Role | Phone | [...] | [facility] | [place] [address] | | | | [address] [place], | [phone] | | | | | [place] [address] | | | | | | [phone] | | | +--------+ + + + [...] | | | | | [place] [address] | | | | | | [phone] | | | | | | | | +--------+ + + + + | 10/30/ | Office | Primary Care | Erika Ernst, | | | 2019 | Visit | | DO [address] | | | | | | [place] [address] | | | | | | [phone] | | | | | | | [...] [place] | | | | | | [address] | | | | | | [phone] | | | | | | | | +--------+ + + + + | 02/09/ | Office | Neurology | Dhara, | | | 2020 | Visit | | [address] | | | | | [address] [place], | | | | | | [place] [address] | | | | | | [phone] | | | | | | | | +--------+ + + + + documented as of this encounter Visit Diagnoses Not on filedocumented in this encounter"
--- OUTSIDE RECORDS SUMMARY | ~2019-09-30 | XMS | Encounter Summary ---
Demographics + + + | Address | [address] | | | [place] [address] | + + + | Home Phone [...] Team Providers + +------+ + | Care Colorist Name | Role | Phone | + [...] | | | | s (de | [place], [place] | [place] [address] | | | | | quervain) | [address] | Phone: | | | | | Pain in | Phone: | [phone] | | | | | right wrist | [phone] | Fax: | | | | | Procedures | Fax: | [phone] | | | | | OT TREAT | [phone] | | +--------+--------+ + + + + [...] | | [address] | [place] [address] | (Primary Dx); Right | | | | [place], [place] | [phone] | wrist pain | | | | [address] | | | | | | [phone] | Michela Azevedo, | | | | [...] might be different f rom the original. [facility] OT [address] [place] [address] Occupational Therapy Daily Treatment Note Date: 11/21/2018 [...] so re. She reports that states the optical goods drilling machine operator strengthening performed in therapy is fine but she h as limitation on how many hrs per day she can perform sustained gripping. A: Tx session focu sed on continued IASTM as well as gentle progressions in optical goods drilling machine operator and wrist strengthening with p t tolerating with mild soreness. Progressed from yellow to pink tputty today. Isometrics add ed to HEP which pt tolerated well in clinic. Next Visit: check response to isometrics and pink tputty from last visit Patient/Caregiver Education Learner: Patient Readiness: Acceptance Method: Explanation Response: Verbalizes Understanding Comment: HEP additions Interventions HEP : Increased resistance with optical goods drilling machine operator strengthening to pink tputty, added submaximal [...] WBing strengthening, 4 way wrist isometrics and optical goods drilling machine operator strengthening with pink t putty OT MANUAL [...] wrist but continues to have right wrist, optical goods drilling machine operator and pinch weakness and significant [...] in 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, and optical goods drilling machine operator and pinch weakness in the [...] ices. Electronically signed by: Micehla Azevedo OT, 11/22/2018 16:08 Patient Name: Andrea [...] | | | | | [place] [address] | | | | | | [phone] | | | | | | | | +--------+ + + + + | 10/30/ | Office | Primary Care | Erika Ernst, | | | 2019 | Visit | | DO [address] [place] | | | | | | [place] [address] | | | | | | [phone] | | | | | | | [...] [place] | | | | | | [address] | | | | | | [phone] | | | | | | | | +--------+ + + + + | 02/09/ | Office | Neurology | Dhara, | | | 2019 | Visit | | [address] | | | [address] [place], | | | | | | [place] [address] | | | | | | [phone] | | | | | | | | +--------+ + + + + documented as of this encounter Visit Diagnoses + + | Diagnosis | + + | Radial styloid tenosynovitis - Primary | + + | Right wrist pain Pain in joint, forearm | + + documented in this encounter"
--- OUTSIDE RECORDS SUMMARY | ~2019-09-30 | XMS | Encounter Summary ---
Demographics + + + | Address | [address] | | | [place] [address] | + + + | Home Phone [...] Team Providers + +------+ + | Care Float Remover Name | Role | Phone | [...] | | | | Procedures | [place] [address] | [place] [address] | | | | | PT EVAL | Phone: | Phone: | | | | | | [phone] | [phone] | | | | | | Fax: | Fax: | | | | | | [phone] | [phone] | +--------+ + + + + + [...] [address] [place] | [place] [address] | | | | | [place], [place] | [phone] | | | | | [address] | | | | | | [phone] | Julia Fisher, | | | | [...] | 11/26/19 | | | (VITAMIN D3) 86703 | mouth Once a week | tablet | | 19 | 9 | | units TABS | for 16 doses. | | | | | + + + +---------+ + + | D3-50 07725 units | | | 0 | 12/13/19 [...] Last Name Julia Fisher, PT Facility Name [facility] Billing Provider TIN [id number] Provider Address, [facility] Code [address] [place] [address] Billing Provider PATIENT INFORMATION All sections must be completed Patient Last Name, First Name ANDREA SUH Date of 1990 Mailing Address [address] [place] [address] [place] [address] Coverage Information Payor/Plan Subscriber Name Rel Member # Group # [employer]* ANDREA SUH CLA* [id number] [address] [id number] CLINICAL INFORMATION Primary ICD/Diagnosis Code: Encounter Diagnoses [...] nelson PT - 12/13/2018 4:32 PM PDT [facility] PT [address] [place] [address] Physical Therapy Initial Assessment Date: 12/13/2018 Patient [...] Mobility: LLE Joint Mobility L Patella Medial [place]: normal L Patella Lateral [place]: normal L Patella Inferior [place]: normal L Patella Superior [place]: normal RLE Joint Mobility R Patella Medial [place]: normal R Patella Lateral [place]: normal R Patella Inferior [place]: normal R Patella Superior [place]: normal Special Tests: Lower Extremity Tests Lower [...] Understanding Therapy Interventions HEP: HEP: Wall sits [id number] holds, Bridging 3 x 10 reps, Side steps GTB at ankles 3 x 30 . PT Interventions: Intervention #1 PT INTERVENTION 1: TE (15min) Wall sits [id number] holds, Bridging x 10 reps, Side steps [...] Certification To: 02/07/2019 Treatment Plan/Interventions PT EvaluationPT Re-[id number] - Therapeutic Oavffkmo53292 - Neuromuscular Reeducation9 7116 - Gait Pjzhgqsm18024 - Therapeutic Yzfksvdmpi75133 - Aquatic Therapy/Etpxuerhz28321 - U dvqpcommv68314 - Electrical Stimulation, Zxsxxaohzs52157 - Electrical Stimulation, Attended6 4550 - TENS Application/Ickeievlorq52555 - Manual Therapy Patient and/or family has [...] | | | | | [place] [address] | | | | | | [phone] | | | | | | | | +--------+ + + + + | 10/30/ | Office | Primary Care | Erika Ernst, | | | 2019 | Visit | | DO [address] [place] | | | | | | [place] [address] | | | | | | [phone] | | | | | | | [...] [place] | | | | | | [address] | | | | | | [phone] | | | | | | | | +--------+ + + + + | 02/09/ | Office | Neurology | Dhara, | | | 2019 | Visit | | [address] | | | [address] [place], | | | | | | [place] [address] | | | | | | [phone] | | | | | | | [...]
--- OUTSIDE RECORDS SUMMARY | ~2019-09-30 | XMS | Encounter Summary ---
Demographics + + + | Address | [address] | | | [place] [address] | + + + | Home Phone [...] Team Providers + +------+ + | Care Skid Man Name | Role | Phone | [...] | [address] [place], [place] | [place] [address] | | | | | [address] | [phone] | | | | | [phone] | | | +--------+ + + + [...] | | | | | [place] [address] | | | | | | [phone] | | | | | | | | +--------+ + + + + | 10/30/ | Office | Primary Care | Erika Ernst, | | | 2019 | Visit | | DO [address] [place] | | | | | | [place] [address] | | | | | | [phone] | | | | | | | [...] [place] | | | | | | [address] | | | | | | [phone] | | | | | | | | +--------+ + + + + | 02/09/ | Office | Neurology | Dhara, | | | 2020 | Visit | | [address] | | | | [address] [place], | | | | | | [place] [address] | | | | | | [phone] | | | | | | | | +--------+ + + + + documented as of this encounter Visit Diagnoses Not on filedocumented in this encounter"
--- OUTSIDE RECORDS SUMMARY | ~2019-09-30 | XMS | Encounter Summary ---
Demographics + + + | Address | [address] | | | [place] [address] | + + + | Home Phone [...] Team Providers + +------+ + | Care Local Company Intermodal Truck Driver Name | Role | Phone [...] | 2019 | | [facility] CALL CENTER OPERATOR [address] | Referral | | | | [facility] [address] | [facility] [place] [address] | | | | | [address] [place], | [phone] | | | | | [place] [address] | | | | | | [phone] | | | +--------+ + + + [...] | | | | | [place] [address] | | | | | | [phone] | | | | | | | | +--------+ + + + + | 10/30/ | Office | Primary Care | Erika Ernst, | | | 2019 | Visit | | DO [address] [place] | | | | | | [place] [address] | | | | | | [phone] | | | | | | | [...] [place] | | | | | | [address] | | | | | | [phone] | | | | | | | | +--------+ + + + + | 02/09/ | Office | Neurology | Dhara, | | | 2020 | Visit | | [address] | | | | | [address] [place], | | | | | | [place] [address] | | | | | | [phone] | | | | | | | | +--------+ + + + + documented as of this encounter Visit Diagnoses Not on filedocumented in this encounter"
--- OUTSIDE RECORDS SUMMARY | ~2019-09-30 | XMS | Encounter Summary ---
Demographics + + + | Address | [address] | | | [place] [address] | + + + | Home Phone [...] Providers + +------+ + | Care Coin Teller Name | Role | Phone | [...] | | | [place], [place] | [address] | | | | | [address] | | | | | | [phone] | | | +--------+ + + + [...] | | | | | [place] [address] | | | | | | [phone] | | | | | | | | +--------+ + + + + | 10/30/ | Office | Primary Care | Erika Ernst, | | | 2019 | Visit | | DO [address] [place] | | | | | | [place] [address] | | | | | | [phone] | | | | | | | [...] [place] | | | | | | [address] | | | | | | [phone] | | | | | | | | +--------+ + + + + | 02/09/ | Office | Neurology | Dhara, | | | 2019 | Visit | | [address] | | | | | | [address] [place], | | | | | | [place] [address] | | | | | | [phone] | | | | | | | | +--------+ + + + + documented as of this encounter Visit Diagnoses Not on filedocumented in this encounter"
--- OUTSIDE RECORDS SUMMARY | ~2019-09-30 | XMS | Encounter Summary ---
Demographics + + + | Address | [address] | | | [place] [address] | + + + | Home Phone [...] Team Providers + +------+ + | Care Balancer Scale Name | Role | Phone | + [...] Dx) | | 2019 | Visit | [facility] | DWAINE Rob | | | | | [facility] [address] | [address] [place] [address] | | | | | [address] [facility], | [facility] [address] | | | | | [place] [address] | [phone] | | | | | [phone] | | | +--------+---------+ + + + [...] Illness: [facility] the following [facility]): Skin problem Onset: [...] | | | | | [place] [address] | | | | | | [phone] | | | | | | | | +--------+ + + + + | 10/30/ | Office | Primary Care | Erika Ernst, | | | 2019 | Visit | | DO [address] [place] | | | | | | [place] [address] | | | | | | [phone] | | | | | | | [...] [place] | | | | | | [address] | | | | | | [phone] | | | | | | | | +--------+ + + + + | 02/09/ | Office | Neurology | Dhara, | | | 2019 | Visit | | [address] | | | | [address] [place], | | | | | | [place] [address] | | | | | | [phone] | | | | | | | | +--------+ + + + + documented as of this encounter Visit Diagnoses + + | Diagnosis | + + | Blister - Primary Other, multiple, and unspecified sites, blister, without mention of | | infection | + + documented in this encounter
--- OUTSIDE RECORDS SUMMARY | ~2019-09-30 | XMS | Encounter Summary ---
Demographics + + + | Address | [address] | | | [place] [address] | + + + | Home Phone [...] Team Providers + +------+ + | Care Piping Designer Name | Role | Phone | [...] | | | | symptoms | [place] [address] | [address] Phone: | | | | | | Phone: | [phone] | | | | | | [phone] | Fax: | | | | | | Fax: | [phone] | | | | | | [phone] | | +--------+ + + + + [...] | | | [place], [place] | [address] | Dx) | | | | [address] | | | | | | [phone] | | | +--------+---------+ + + + [...] | : 1990 | Medical Record Number:[id number] | Author: Emily Mittal DPM | Date [...] hip and her ankle and also [facility] s[facility] therapy that her knee recently started hurting. Patient is set to obtain her orthotics from [facility] in 2 weeks. Medications Current Outpatient Medications [...] mouth. Once a week Cholecalciferol (VITAMIN D3) 94873 units TABS Take 1 tablet by mouth [...] MOTOR/SENSORY NERVE CONDUCTION STUDIES REF AUTH REQUEST ([id number]) Treatment and Plan of Care In light of new onset symptoms I'm going to recommend an EMG/MCV for this patient In the meantime in order to make the patient more comfortable we've given crutches to her t o be nonweightbearing to her left side. Crutch training was performed by my certified medic al nurses assistant. Recommend ibuprofen when necessary pain and [...] MD; Location: [facility] TENDON RELEASE TONSILLECTOMY WISDOM TOOTH EXTRACTION Family History Problem Relation Age of Onset Other (see comment) Mother gallbladder disease Hypertension Father Other (see comment) Father arrhymthmia Breast cancer Sister Cervical cancer Maternal Grandmother Heart attack Maternal Aunt [place] Social History Socioeconomic History Marital status: Single [...] and their vital signs recorded by my nurses assistant today, a s found in this chart note. Electronically signed by: Emily Mittal DPM 12/06/2018 at 15:36 Note: Part of this report was transcribed using voice recognition software. Every effort wa s made to ensure accuracy. However, inadvertent computerized used car salesperson errors may be pre sent. CC: Erika [...] | | | | | [place] [address] | | | | | | [phone] | | | | | | | | +--------+ + + + + | 10/30/ | Office | Primary Care | Erika Ernst, | | | 2019 | Visit | | DO [address] [place] | | | | | | [place] [address] | | | | | | [phone] | | | | | | | [...] [place] | | | | | | [address] | | | | | | [phone] | | | | | | | | +--------+ + + + + | 02/09/ | Office | Neurology | Dhara, | | | 2019 | Visit | | [address] | | | | [address] [place], | | | | | | [place] [address] | | | | | | [phone] | | | | | | | [...] | | | symptoms | | | ([id number]) | | | | | + + +--------+ + + documented as of this encounter Visit Diagnoses + + | Diagnosis | + + | Radiculopathy with lower extremity symptoms - Primary | + + documented in this encounter
--- OUTSIDE RECORDS SUMMARY | ~2019-09-30 | XMS | Encounter Summary ---
Demographics + + + | Address | [address] | | | [place] [address] | + + + | Home Phone [...] Providers + +------+ + | Care Blasting Worker Name | Role | Phone | [...] | | [place], [place] | [place] [address] | | | | | [address] | [phone] | | | | | [phone] | | | +--------+ + + + [...] | | | | | [place] [address] | | | | | | [phone] | | | | | | | | +--------+ + + + + | 10/30/ | Office | Primary Care | Erika Ernst, | | | 2019 | Visit | | DO [address] [place] | | | | | | [place] [address] | | | | | | [phone] | | | | | | | [...] [place] | | | | | | [address] | | | | | | [phone] | | | | | | | | +--------+ + + + + | 02/09/ | Office | Neurology | Dhara, | | | 2020 | Visit | | [address] | | | | [address] [place], | | | | | | [place] [address] | | | | | | [phone] | | | | | | | | +--------+ + + + + documented as of this encounter Visit Diagnoses Not on filedocumented in this encounter"
--- OUTSIDE RECORDS SUMMARY | ~2019-09-30 | XMS | Encounter Summary ---
Demographics + + + | Address | [address] | | | [place] [address] | + + + | Home Phone [...] + +------+ + | Care Social Work Therapist Name | Role | [...] | | | | severe | [place] [address] | [place], [place] | | | | | obesity due | Phone: | [address] | | | | | to excess | [phone] | Phone: | | | | | calories | Fax: | [phone] | | | | | without | [phone] | Fax: | | | | | serious | | [phone] | | | | | comorbidity | [...] | | | | | | | MS MED NUTR | | | | | | | THER, 1ST, | | | | | | | INDIV, EA 15 | | | | | | | MIN MS MED | | | | | | [...] | SERVICES [address] | [place] [address] | obesity (HCC); BMI | | | | [place] | [phone] | 50.0-59.9, adult | | | | [address] | | (HCC); Dietary | | | | [phone] | Janel Webster, | counseling and | [...] | 11/26/19 | | | (VITAMIN D3) 86212 | mouth Once a week | tablet [...] | | | | | [place] [address] | | | | | | [phone] | | | | | | | | +--------+ + + + + | 10/30/ | Office | Primary Care | Erika Ernst, | | | 2019 | Visit | | DO [address] [place] | | | | | | [place] [address] | | | | | | [phone] | | | | | | | [...] [place] | | | | | | [address] | | | | | | [phone] | | | | | | | | +--------+ + + + + | 02/09/ | Office | Neurology | Dhara, | | | 2019 | Visit | | [address] | | | [address] [place], | | | | | | [place] [address] | | | | | | [phone] | | | | | | | [...]
--- OUTSIDE RECORDS SUMMARY | ~2019-09-30 | XMS | Encounter Summary ---
Demographics + + + | Address | [address] | | | [place] [address] | + + + | Home Phone [...] Providers + +------+ + | Care Farm Equipment Mechanic Name | Role | Phone [...] | | | l allergies | [place] [address] | [place], [place] | | | | | | Phone: | [address] | | | | | | [phone] | Phone: | | | | | | Fax: | [phone] | | | | | | [phone] | Fax: | | | | | | | [phone] | +--------+ + + + + + [...] | | depression | [place], | [place] | | | | | type | [place] [address] | Health and | | | | | | Phone: | Service | | | | | | [phone] | | | | | | | Fax: | | | | | | | [phone] | | +--------+ + + + + [...] Essential | | 2018 | Visit | [facility] | DO [address] | hypertension | | | | MEDICAL CLIN[facility] [address] | [place] [address] | (Primary Dx); Asthma | | | | [address] [place], | [phone] | due to | | | | [place] [address] | | environmental | | | | [phone] | | allergies; | | | | [...] | | | | | [place] [address] | | | | | | [phone] | | | | | | | | +--------+ + + + + | 10/30/ | Office | Primary Care | Erika Ernst, | | | 2019 | Visit | | DO [address] [place] | | | | | | [place] [address] | | | | | | [phone] | | | | | | | [...] [place] | | | | | | [address] | | | | | | [phone] | | | | | | | | +--------+ + + + + | 02/09/ | Office | Neurology | Dhara, | | | 2019 | Visit | | [address] | | | | [address] [place], | | | | | | [place] [address] | | | | | | [phone] | | | | | | | [...] + + | [place] [facility] | [address] | [place] [address] | [phone] | | HOSPITAL [facility] | | | [...] | mL/min/1.73m2 | [facility] | | | TUNISIAN | RATE,ESTIMATED | | HOSPITAL | | | | mL/min/1.61g5Zaag than | | LABORATORY | | | [...] + + | [place] [facility] | [address] | [place] [address] | [phone] | | HOSPITAL LAB[facility]ORY | | | [...]
--- OUTSIDE RECORDS SUMMARY | ~2019-09-30 | XMS | Encounter Summary ---
Demographics + + + | Address | [address] | | | [place] [address] | + + + | Home Phone [...] Team Providers + +------+ + | Care Filemaker Developer Name | Role | Phone | [...] Refill | | 2019 | | [facility] | [address] | | | | | MEDICAL [facility] [address] | [place] [address] | | | | | [address] [facility], | [phone] | | | | | [place] [address] | | | | | | [phone] | | | +--------+ + + + [...] | | | | | [place] [address] | | | | | | [phone] | | | | | | | | +--------+ + + + + | 10/30/ | Office | Primary Care | Erika Ernst, | | | 2019 | Visit | | DO [address] | | | | | | [place] [address] | | | | | | [phone] | | | | | | | [...] [place] | | | | | | [address] | | | | | | [phone] | | | | | | | | +--------+ + + + + | 02/09/ | Office | Neurology | Dhara, | | | 2019 | Visit | | [address] | | | | | [address] [place], | | | | | | [place] [address] | | | | | | [phone] | | | | | | | | +--------+ + + + + documented as of this encounter Visit Diagnoses Not on filedocumented in this encounter"
--- OUTSIDE RECORDS SUMMARY | ~2019-09-30 | XMS | Encounter Summary ---
Demographics + + + | Address | [address] | | | [place] [address] | + + + | Home Phone [...] Providers + +------+ + | Care Gang Investigator Name | Role | Phone | [...] | [address] [place], [place] | [place] [address] | | | | | [address] | [phone] | | | | | [phone] | | | +--------+ + + + [...] | | | | | [place] [address] | | | | | | [phone] | | | | | | | | +--------+ + + + + | 10/30/ | Office | Primary Care | Erika Ernst, | | | 2019 | Visit | | DO [address] | | | | | | [place] [address] | | | | | | [phone] | | | | | | | [...] [place] | | | | | | [address] | | | | | | [phone] | | | | | | | | +--------+ + + + + | 02/09/ | Office | Neurology | Dhara, | | | 2020 | Visit | | [address] | | | | | | [address] [place], | | | | | | [place] [address] | | | | | | [phone] | | | | | | | | +--------+ + + + + documented as of this encounter Visit Diagnoses Not on filedocumented in this encounter"
--- OUTSIDE RECORDS SUMMARY | ~2019-09-30 | XMS | Encounter Summary ---
Demographics + + + | Address | [address] | | | [place] [address] | + + + | Home Phone [...] Team Providers + +------+ + | Care Transcription Specialist Name | Role | Phone | [...] | [facility] | [place] [address] | due to | | | | [address] [place], | [phone] | environmental | | | | [place] [address] | | allergies | | | | [phone] | | | +--------+---------+ + + + [...] not enough. We do not do chronic intermediate pain meds in this clinic but can [...] | | | | | [place] [address] | | | | | | [phone] | | | | | | | | +--------+ + + + + | 10/30/ | Office | Primary Care | Erika Ernst, | | | 2019 | Visit | | DO [address] [place] [address] | | | | | | [place] [address] | | | | | | [phone] | | | | | | | [...] [place] | | | | | | [address] | | | | | | [phone] | | | | | | | | +--------+ + + + + | 02/09/ | Office | Neurology | Dhara, | | | 2019 | Visit | | [address] | | | | | | [address] [facility] [place], | | | | | | [place] [address] | | | | | | [phone] | | | | | | | | +--------+ + + + + documented as of this encounter Visit Diagnoses + + | Diagnosis | + + | Right wrist pain - Primary Pain in joint, forearm | + + | Asthma due to environmental allergies | + + documented in this encounter
--- OUTSIDE RECORDS SUMMARY | ~2019-09-30 | XMS | Encounter Summary ---
Demographics + + + | Address | [address] | | | [place] [address] | + + + | Home Phone [...] Providers + +------+ + | Care Safety Administrator Name | Role | Phone | [...] | [facility] | [place] [address] | | | | | [address] [place], | [phone] | | | | | [place] [address] | | | | | | [phone] | | | +--------+ + + + [...] | 2018 | Visit | | DO [address] [place] [address] | | | | | | [place] [address] | | | | | | [phone] | | | | | | | | +--------+ + + + + | 10/30/ | Office | Primary Care | Erika Ernst, | | | 2019 | Visit | | DO [address] | | | | | | [place] [address] | | | | | | [phone] | | | | | | | [...] [place] | | | | | | [address] | | | | | | [phone] | | | | | | | | +--------+ + + + + | 02/09/ | Office | Neurology | Dhara, | | | 2019 | Visit | | [address] | | | | | | [address] [place], | | | | | | [place] [address] | | | | | | [phone] | | | | | | | | +--------+ + + + + documented as of this encounter Visit Diagnoses Not on filedocumented in this encounter"
--- OUTSIDE RECORDS SUMMARY | ~2019-09-30 | XMS | Encounter Summary ---
Demographics + + + | Address | [address] | | | [place] [address] | + + + | Home Phone [...] Providers + +------+ + | Care Rug Frame Mounter Name | Role | Phone | + [...] | | | of left | [place] [address] | [place] [address] | | | | | ankle, | Phone: | Phone: | | | | | initial | [phone] | [phone] | | | | | encounter | Fax: | Fax: | | | | | Procedures | [phone] | [phone] | | | | | PT EVAL [...] [address] | [place] [address] | ligament of left | | | | [place], [place] | [phone] | ankle, initial | | | | [address] | | encounter | | | | [phone] | Nick Barrios I, PT | | [...] be different hannah tan the original. [facility] [address] [place] [address] Physical Therapy Daily Treatment Note Date: 07/12/2018 [...] | | | | | [place] [address] | | | | | | [phone] | | | | | | | | +--------+ + + + + | 10/30/ | Office | Primary Care | Erika Ernst, | | | 2019 | Visit | | DO [address] | | | | | | [place] [address] | | | | | | [phone] | | | | | | | [...] [place] | | | | | | [address] | | | | | | [phone] | | | | | | | | +--------+ + + + + | 02/09/ | Office | Neurology | Dhara, | | | 2019 | Visit | | [address] | | | | | | 4TH [place], | | | | | | [place] [address] | | | | | | [phone] | | | | | | | | +--------+ + + + + documented as of this encounter Visit Diagnoses + + | Diagnosis | + + | Sprain of calcaneofibular ligament of left ankle, initial encounter | + + documented in this encounter"
--- OUTSIDE RECORDS SUMMARY | ~2019-09-30 | XMS | Encounter Summary ---
Demographics + + + | Address | [address] | | | [place] [address] | + + + | Home Phone [...] Providers + +------+ + | Care Electronic Scale Tester Name | Role | Phone | + +------+ + PCP | Unavailable | + +------+ + Encounter Details +--------+ + + + + | Date | Type | Department | Care Team | Description | +--------+ + + + + | 04/27/ | [facility] | [facility] | Erika Ernst, | | | 2016 | Encounter | [facility] | DO [address] | | | | | [facility] [address] | [place] [address] | | | | | [address] [place], | [phone] | | | | | [place] [address] | | | | | | [phone] | | | +--------+ + + + [...] | | | | | [place] [address] | | | | | | [phone] | | | | | | | | +--------+ + + + + | 10/30/ | Office | Primary Care | Erika Ernst, | | | 2019 | Visit | | DO [address] | | | | | | [place] [address] | | | | | | [phone] | | | | | | | [...] [place] | | | | | | [address] | | | | | | [phone] | | | | | | | | +--------+ + + + + | 02/09/ | Office | Neurology | Dhara, | | | 2019 | Visit | | [address] | | | | | | [address] [place], | | | | | | [place] [address] | | | | | | [phone] | | | | | | | | +--------+ + + + + documented as of this encounter Visit Diagnoses Not on filedocumented in this encounter"
--- OUTSIDE RECORDS SUMMARY | ~2019-09-30 | XMS | Encounter Summary ---
Demographics + + + | Address | [address] | | | [place] [address] | + + + | Home Phone [...] Team Providers + +------+ + | Care End User Support Specialist Name | Role | Phone [...] | [facility] [address] | [place] [address] | (Primary Dx); | | | | [address] [place], | [phone] | Vitamin D deficiency | | | | [place] [address] | | | | | | [phone] | | | +--------+---------+ + + + [...] PM 90 tablet 5 Cholecalciferol (VITAMIN D3) 67558 units TABS Take 1 tablet by mouth [...] | Visit | | DO [address] [facility] | | | | | | [facility] [place] [address] | | | | | | [phone] | | | | | | | | +--------+ + + + + | 10/30/ | Office | Primary Care | Erika Ernst, | | | 2019 | Visit | | DO [address] | | | | | | [place] [address] | | | | | | [phone] | | | | | | | [...] [place] | | | | | | [address] | | | | | | [phone] | | | | | | | | +--------+ + + + + | 02/09/ | Office | Neurology | Dhara, | | | 2019 | Visit | | [address] | | | | | | [address] [place], | | | | | | [place] [address] | | | | | | [phone] | | | | | | | [...] + + | [place] [facility] | [address] | [place] [address] | [phone] | | [facility] | | | [...] + + | [place] [facility] | [address] | [place] [address] | [phone] | | H[facility]ITAL [facility] | | | | + + + + + documented in this encounter Visit Diagnoses + + | Diagnosis | + + | Acquired hypothyroidism - Primary Unspecified hypothyroidism | + + | Vitamin D deficiency Unspecified vitamin D deficiency | + + documented in this encounter
--- OUTSIDE RECORDS SUMMARY | ~2019-09-30 | XMS | Encounter Summary ---
Demographics + + + | Address | [address] | | | [place] [address] | + + + | Home Phone [...] Providers + +------+ + | Care Section Crews Activities Clerk Name | Role | Phone | + +------+ + PCP | Unavailable | + +------+ + Encounter Details +--------+ + + + + | Date | Type | Department | Care Team | Description | +--------+ + + + + | 02/25/ | [facility] | Caro Zendejas | | | 2015 | Encounter | [facility] | Vale, BUILDING ILLUMINATING ENGINEER [address] | | | | | [facility] | [facility], [place] | | | | | [facility], | [address] | | | | | [place] [address] | [phone] | | | | | [phone] | | | +--------+ + + + [...] | | | | | [place] [address] | | | | | | [phone] | | | | | | | | +--------+ + + + + | 10/30/ | Office | Primary Care | Erika Ernst, | | | 2019 | Visit | | DO [address] | | | | | | [place] [address] | | | | | | [phone] | | | | | | | [...] [place] | | | | | | [address] | | | | | | [phone] | | | | | | | | +--------+ + + + + | 02/09/ | Office | Neurology | Dhara, | | | 2020 | Visit | | [address] | | | | | | [address] [place], | | | | | | [place] [address] | | | | | | [phone] | | | | | | | | +--------+ + + + + documented as of this encounter Visit Diagnoses Not on filedocumented in this encounter"
--- OUTSIDE RECORDS SUMMARY | ~2019-09-30 | XMS | Encounter Summary ---
Demographics + + + | Address | [address] | | | [place] [address] | + + + | Home Phone [...] Team Providers + +------+ + | Care E Learning Specialist Name | Role | Phone | [...] | | | [place] | [address] | | | | | [address] | | | | | | [phone] | | | +--------+ + + + [...] | | | | | [place] [address] | | | | | | [phone] | | | | | | | | +--------+ + + + + | 10/30/ | Office | Primary Care | Erika Ernst, | | | 2019 | Visit | | DO [address] | | | | | | [place] [address] | | | | | | [phone] | | | | | | | [...] [place] | | | | | | [address] | | | | | | [phone] | | | | | | | | +--------+ + + + + | 02/09/ | Office | Neurology | Dhara, | | | 2019 | Visit | | [address] | | | | | | [address] [place], | | | | | | [place] [address] | | | | | | [phone] | | | | | | | | +--------+ + + + + documented as of this encounter Visit Diagnoses Not on filedocumented in this encounter"
--- OUTSIDE RECORDS SUMMARY | ~2019-09-30 | XMS | Encounter Summary ---
Demographics + + + | Address | [address] | | | [place] [address] | + + + | Home Phone [...] Team Providers + +------+ + | Care Shredder Tender Peat Name | Role | Phone | + +------+ + PCP | Unavailable | + +------+ + Encounter Details +--------+ + + + + | Date | Type | Department | Care Team | Description | +--------+ + + + + | 06/22/ | [facility] | [facility] | Conversion | | | 2011 | Encounter | [facility] | Transaction, | | | | | [facility] [address] | Provider Unknown | | | | | 4TH [facility], | [phone] | | | | | [place] [address] | | | | | | [phone] | | | +--------+ + + + [...] | | | | | [place] [address] | | | | | | [phone] | | | | | | | | +--------+ + + + + | 10/30/ | Office | Primary Care | Erika Ernst, | | | 2019 | Visit | | DO [address] [place] | | | | | | [place] [address] | | | | | | [phone] | | | | | | | [...] [place] | | | | | | [address] | | | | | | [phone] | | | | | | | | +--------+ + + + + | 02/09/ | Office | Neurology | Dhara, | | | 2019 | Visit | | [address] | | | | | | [address] [place], | | | | | | [place] [address] | | | | | | [phone] | | | | | | | | +--------+ + + + + documented as of this encounter Visit Diagnoses Not on filedocumented in this encounter"
--- OUTSIDE RECORDS SUMMARY | ~2019-09-30 | XMS | Encounter Summary ---
Demographics + + + | Address | [address] | | | [place] [address] | + + + | Home Phone [...] Providers + +------+ + | Care Certified Welder Name | Role | Phone | [...] | | | [address] [place], [place] | [place] [address] | | | | | [address] | | | | | | [phone] | (Fax) | | +--------+ + + [...] | 04/12/20 | | | (VITAMIN D3) 60557 | mouth Once a week | tablet [...] | | | | | [place] [address] | | | | | | [phone] | | | | | | | | +--------+ + + + + | 10/30/ | Office | Primary Care | Erika Ernst, | | | 2019 | Visit | | DO [address] | | | | | | [place] [address] | | | | | | [phone] | | | | | | | [...] [place] | | | | | | [address] | | | | | | [phone] | | | | | | | | +--------+ + + + + | 02/09/ | Office | Neurology | Dhara, | | | 2019 | Visit | | [place], [facility] [address] | | | | | | 4TH [facility], | | | | | | [place] [address] | | | | | | [phone] | | | | | | | [...]
--- OUTSIDE RECORDS SUMMARY | ~2019-09-30 | XMS | Encounter Summary ---
Demographics + + + | Address | [address] | | | [place] [address] | + + + | Home Phone [...] Team Providers + +------+ + | Care Conductor Freight Name | Role | Phone | + [...] | Injections | | 2019 | | [facility] | [address] | (information re: | | | | MEDICAL CLINIC [address] | [place] [address] | shingles injection); | | | | 4TH [facility], | [phone] | Injections | | | | [place] [address] | | | | | | [phone] | | | +--------+ + + + [...] | | | | | [place] [address] | | | | | | [phone] | | | | | | | | +--------+ + + + + | 10/30/ | Office | Primary Care | Erika Ernst, | | | 2019 | Visit | | DO [address] | | | | | | [place] [address] | | | | | | [phone] | | | | | | | [...] [place] | | | | | | [address] | | | | | | [phone] | | | | | | | | +--------+ + + + + | 02/09/ | Office | Neurology | Dhara, | | | 2019 | Visit | | [address] | | | | | | [address] [place], | | | | | | [place] [address] | | | | | | [phone] | | | | | | | | +--------+ + + + + documented as of this encounter Visit Diagnoses Not on filedocumented in this encounter"
--- OUTSIDE RECORDS SUMMARY | ~2019-09-30 | XMS | Encounter Summary ---
Demographics + + + | Address | [address] | | | [place] [address] | + + + | Home Phone [...] | | | | [place] | [place] [address] | [place], [place] | | | | | | Phone: | [address] | | | | | | [phone] | Phone: | | | | | | Fax: | [phone] | | | | | | [phone] | Fax: | | | | | | | [phone] | + + + + + + [...] Essential | | 2019 | Visit | [facility] | DO [address] | hypertension | | | | MEDICAL CLINIC [address] | [place] [address] | (Primary Dx); | | | | [address] [place], | [phone] | Environmental | | | | [place] [address] | | allergies; Acute | | | | [phone] | | recurrent frontal | | | [...] diet. She has allergies and is seeing [facility] for allergy shots. She has had sinus [...] [address] | | | | | | [phone] | | | | | | | | +--------+ + + + + | 10/30/ | Office | Primary Care | Erika Ernst, | | | 2019 | Visit | | DO [address] | | | | | | [place] [address] | | | | | | [phone] | | | | | | | [...] [place] | | | | | | [address] | | | | | | [phone] | | | | | | | | +--------+ + + + + | 02/09/ | Office | Neurology | Dhara, | | | 2019 | Visit | | [address] | | | | | | [address] [place], | | | | | | [place] [address] | | | | | | [phone] | | | | | | | [...]
--- OUTSIDE RECORDS SUMMARY | ~2019-09-30 | XMS | Encounter Summary ---
Demographics + + + | Address | [address] | | | [place] [address] | + + + | Home Phone [...] Providers + +------+ + | Care Music Video Director Name | Role | Phone | [...] [facility] [place] | | | | | MEDICAL CL[facility] [address] | [place] [place] [address] | | | | | [address] [place], | [phone] | | | | | [place] [address] | | | | | | [phone] | | | +--------+ + + + [...] | | | | | [place] [address] | | | | | | [phone] | | | | | | | | +--------+ + + + + | 10/30/ | Office | Primary Care | Erika Ernst, | | | 2019 | Visit | | DO [address] [place] [address] | | | | | | [place] [address] | | | | | | [phone] | | | | | | | [...] [place] | | | | | | [address] | | | | | | [phone] | | | | | | | | +--------+ + + + + | 02/09/ | Office | Neurology | Dhara, | | | 2019 | Visit | | [address] | | | | | | [address] [place], | | | | | | [place] [address] | | | | | | [phone] | | | | | | | | +--------+ + + + + documented as of this encounter Visit Diagnoses Not on filedocumented in this encounter"
--- OUTSIDE RECORDS SUMMARY | ~2019-09-30 | XMS | Encounter Summary ---
Demographics + + + | Address | [address] | | | [place] [address] | + + + | Home Phone [...] Team Providers + +------+ + | Care Anesthesia Technician Name | Role | Phone | [...] | MRI Wrist | DR [address] | [address] | | | | | Right wo | [place], [place] | Phone: | | | | | Contrast | [address] | [phone] | | | | | | Phone: | Fax: | | | | | | [phone] | [phone] | | | | | | Fax: | | | | | | | [phone] | | +--------+--------+ + + + + [...] | MRI Wrist | DR [address] | [address] | | | | | Right wo | [place], [place] | Phone: | | | | | Contrast | [address] | [phone] | | | | | | Phone: | Fax: | | | | | | [phone] | [phone] | | | | | | Fax: | | | | | | | [phone] | | +--------+--------+ + + + + [...] | | [place] | [place] [address] | | | | | [address] | [phone] | | | | | [phone] | | | +--------+ + + + [...] | 11/26/19 | | | (VITAMIN D3) 56974 | mouth Once a week | tablet [...] | | | | | [place] [address] | | | | | | [phone] | | | | | | | | +--------+ + + + + | 10/30/ | Office | Primary Care | Erika Ernst, | | | 2019 | Visit | | DO [address] | | | | | | [place] [address] | | | | | | [phone] | | | | | | | [...] [place] | | | | | | [address] | | | | | | [phone] | | | | | | | | +--------+ + + + + | 02/09/ | Office | Neurology | Dhara, | | | 2019 | Visit | | [address] | | | | | | [address] [place], | | | | | | [place] [address] | | | | | | [phone] | | | | | | | [...]
--- OUTSIDE RECORDS SUMMARY | ~2019-09-30 | XMS | Encounter Summary ---
Demographics + + + | Address | [address] | | | [place] [address] | + + + | Home Phone [...] Team Providers + +------+ + | Care Check Cashier Name | Role | Phone | + +------+ + PCP | Unavailable | + +------+ + Encounter Details +--------+ + + + + | Date | Type | Department | Care Team | Description | +--------+ + + + + | 02/09/ | [facility] | Heike Rodriguez, | | | 2015 | Encounter | [facility] | SERVICE PLANNER [address] | | | | | C[address] | [place] | | | | | [place] | [address] | | | | | [address] | | | | | | [phone] | | | +--------+ + + + [...] | | | | | [place] [address] | | | | | | [phone] | | | | | | | | +--------+ + + + + | 10/30/ | Office | Primary Care | Erika Ernst, | | | 2019 | Visit | | DO [address] | | | | | | [place] [address] | | | | | | [phone] | | | | | | | [...] [place] | | | | | | [address] | | | | | | [phone] | | | | | | | | +--------+ + + + + | 02/09/ | Office | Neurology | Dhara, | | | 2019 | Visit | | [place], [facility] [address] | | | | | | 4TH [facility], | | | | | | [place] [address] | | | | | | [phone] | | | | | | | [...] | | IMPRESSION:Left basilar pneumonia. Job #: [id number] Read By: ADYANA Boyd | | MD JAYMIE Released By: [...]
--- OUTSIDE RECORDS SUMMARY | ~2019-09-30 | XMS | Encounter Summary ---
Demographics + + + | Address | [address] | | | [place] [address] | + + + | Home Phone [...] Providers + +------+ + | Care Glass Glazier Name | Role | Phone | + [...] | | | | s (de | [place], [place] | [place] [address] | | | | | quervain) | [address] | Phone: | | | | | Pain in | Phone: | [phone] | | | | | right wrist | [phone] | Fax: | | | | | Procedures | Fax: | [phone] | | | | | OT TREAT | [phone] | | +--------+--------+ + + + + [...] | | [address] | [place] [address] | (Primary Dx); Right | | | | [place], [place] | [phone] | wrist pain | | | | [address] | | | | | | [phone] | Nakia Koo OT | | +--------+ [...] PST [facility] [facility] OT [address] [place] [address] Occupational Therapy Daily Treatment Note Date: 10/23/2018 [...] have some deficits in AROM, pinch and hair blender strength. She has returned to modified [...] pt has made progress with her R hair blender strength, but is still experiencing activity [...] in 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, and hair blender and pinch weakness in the right [...] + + + + | 12/31/ | Office | Primary Care | Erika Ernst, | | | 2018 | Visit | | DO [address] | | | | | | [place] [address] | | | | | | [phone] | | | | | | | | +--------+ + + + + | 10/30/ | Office | Primary Care | Erika Ernst, | | | 2019 | Visit | | DO [address] [place] | | | | | | [place] [address] | | | | | | [phone] | | | | | | | [...] [place] | | | | | | [address] | | | | | | [phone] | | | | | | | | +--------+ + + + + | 02/09/ | Office | Neurology | Dhara, | | | 2020 | Visit | | [address] | | | | | | 4TH [facility], | | | | | | [place] [address] | | | | | | [phone] | | | | | | | | +--------+ + + + + documented as of this encounter Visit Diagnoses + + | Diagnosis | + + | Radial styloid tenosynovitis - Primary | + + | Right wrist pain Pain in joint, forearm | + + documented in this encounter
--- OUTSIDE RECORDS SUMMARY | ~2019-09-30 | XMS | Encounter Summary ---
Demographics + + + | Address | [address] | | | [place] [address] | + + + | Home Phone [...] Providers + +------+ + | Care Child And Family Counselor Name | Role | Phone | [...] | | 2018 | | [facility] | BIG DATA ADMIN | | | | | MEDICAL CL[facility] [address] | | | | | | [address] [facility] [place], | | | | | | [place] [address] | | | | | | [phone] | | | +--------+ + + + [...] | | | | | | [place] [address] | | | | | | [phone] | | | | | | | | +--------+ + + + + | 10/30/ | Office | Primary Care | Erika Ernst, | | | 2019 | Visit | | DO [address] | | | | | | [place] [address] | | | | | | [phone] | | | | | | | [...] [place] | | | | | | [address] | | | | | | [phone] | | | | | | | | +--------+ + + + + | 02/09/ | Office | Neurology | Dhara, | | | 2019 | Visit | | DWAINE Ross [address] [place], | | | | | | [place] [address] | | | | | | [phone] | | | | | | | | +--------+ + + + + documented as of this encounter Visit Diagnoses Not on filedocumented in this encounter"
--- OUTSIDE RECORDS SUMMARY | ~2019-09-30 | XMS | Encounter Summary ---
Demographics + + + | Address | [address] | | | [place] [address] | + + + | Home Phone [...] Providers + +------+ + | Care Industrial Laborer Name | Role | Phone | + +------+ + PCP | Unavailable | + +------+ + Encounter Details +--------+ + + + + | Date | Type | Department | Care Team | Description | +--------+ + + + + | 05/03/ | [facility] | [facility] | Erika Ernst, | | | 2017 | Encounter | [facility] | DO [address] | | | | | [facility] [address] | [place] [address] | | | | | [address] [place], | [phone] | | | | | [place] [address] | | | | | | [phone] | | | +--------+ + + + [...] | | | | | [place] [address] | | | | | | [phone] | | | | | | | | +--------+ + + + + | 10/30/ | Office | Primary Care | Erika Ernst, | | | 2019 | Visit | | DO [address] | | | | | | [place] [address] | | | | | | [phone] | | | | | | | [...] [place] | | | | | | [address] | | | | | | [phone] | | | | | | | | +--------+ + + + + | 02/09/ | Office | Neurology | Dhara, | | | 2020 | Visit | | DWAINE Ross [address] [place], | | | | | | [place] [address] | | | | | | [phone] | | | | | | | | +--------+ + + + + documented as of this encounter Visit Diagnoses Not on filedocumented in this encounter"
--- OUTSIDE RECORDS SUMMARY | ~2019-09-30 | XMS | Encounter Summary ---
Demographics + + + | Address | [address] | | | [place] [address] | + + + | Home Phone [...] Providers + +------+ + | Care Printing Engineer Name | Role | Phone | + +------+ + PCP | Unavailable | + +------+ + Encounter Details +--------+ + + + + | Date | Type | Department | Care Team | Description | +--------+ + + + + | 07/16/ | [facility] | Spenser Roberts NP | | | 2012 | Encounter | [facility] | [address], | | | | | MEDICAL [facility] [address] | [place] [address] | | | | | [facility], | [phone] | | | | | [place] [address] | | | | | | [phone] | | | +--------+ + + + [...] | | | | | [place] [address] | | | | | | [phone] | | | | | | | | +--------+ + + + + | 10/30/ | Office | Primary Care | Erika Ernst, | | | 2019 | Visit | | DO [address] | | | | | | [place] [address] | | | | | | [phone] | | | | | | | [...] [place] | | | | | | [address] | | | | | | [phone] | | | | | | | | +--------+ + + + + | 02/09/ | Office | Neurology | Dhara, | | | 2020 | Visit | | [address] | | | | | | [address] [place], | | | | | | [place] [address] | | | | | | [phone] | | | | | | | | +--------+ + + + + documented as of this encounter Visit Diagnoses Not on filedocumented in this encounter"
--- OUTSIDE RECORDS SUMMARY | ~2019-09-30 | XMS | Encounter Summary ---
Demographics + + + | Address | [address] | | | [place] [address] | + + + | Home Phone [...] Team Providers + +------+ + | Care Wildlife Conservationist Name | Role | Phone | + [...] Results | | 2018 | | [facility] | INSTRUCTOR PILOT | | | | | MEDICAL CLIN[facility] [address] | | | | | | [facility] [place], | | | | | | [place] [address] | | | | | | [phone] | | | +--------+ + + + [...] | | | | | [place] [address] | | | | | | [phone] | | | | | | | | +--------+ + + + + | 10/30/ | Office | Primary Care | Erika Ernst, | | | 2019 | Visit | | DO [address] | | | | | | [place] [address] | | | | | | [phone] | | | | | | | [...] [place] | | | | | | [address] | | | | | | [phone] | | | | | | | | +--------+ + + + + | 02/09/ | Office | Neurology | Dhara, | | | 2019 | Visit | | [address] | | | | | | [address] [place], | | | | | | [place] [address] | | | | | | [phone] | | | | | | | | +--------+ + + + + documented as of this encounter Visit Diagnoses Not on filedocumented in this encounter"
--- OUTSIDE RECORDS SUMMARY | ~2019-09-30 | XMS | Encounter Summary ---
Demographics + + + | Address | [address] | | | [place] [address] | + + + | Home Phone [...] Providers + +------+ + | Care Resident Surgeon Name | Role | Phone | [...] | | | | disorder) | [place] [address] | [address] | | | | | | Phone: | [facility], [place] | | | | | | [phone] | [address] | | | | | | Fax: | Phone: | | | | | | [phone] | [phone] | | | | | | | Fax: | | | | | | | [phone] | + + + + + + [...] Other | | 2017 | | [facility] | [address] | | | | | MEDICAL CLINIC [address] | [place] [address] | | | | | [address] [place], | [phone] | | | | | [place] [address] | | | | | | [phone] | | | +--------+ + + + [...] | | | | | [place] [address] | | | | | | [phone] | | | | | | | | +--------+ + + + + | 10/30/ | Office | Primary Care | Erika Ernst, | | | 2019 | Visit | | DO [address] | | | | | | [place] [address] | | | | | | [phone] | | | | | | | [...] [place] | | | | | | [address] | | | | | | [phone] | | | | | | | | +--------+ + + + + | 02/09/ | Office | Neurology | Dhara, | | | 2019 | Visit | | [address] | | | | | | [address] [place], | | | | | | [place] [address] | | | | | | [phone] | | | | | | | [...]
--- OUTSIDE RECORDS SUMMARY | ~2019-09-30 | XMS | Encounter Summary ---
Demographics + + + | Address | [address] | | | [place] [address] | + + + | Home Phone [...] Team Providers + +------+ + | Care Skiving Machine Operator Name | Role | Phone | + +------+ + PCP | Unavailable | + +------+ + Encounter Details +--------+ + + + + | Date | Type | Department | Care Team | Description | +--------+ + + + + | 10/28/ | [facility] | Caro Zendejas | | | 2013 | Encounter | [facility] | Vale, SET UP WORKER [address] | | | | | MEDICAL CL[facility] [address] | [facility], [place] | | | | | [address] [facility], | [address] | | | | | [place] [address] | [phone] | | | | | [phone] | | | +--------+ + + + [...] | | | | | [place] [address] | | | | | | [phone] | | | | | | | | +--------+ + + + + | 10/30/ | Office | Primary Care | Erika Ernst, | | | 2019 | Visit | | DO [address] | | | | | | [place] [address] | | | | | | [phone] | | | | | | | [...] [place] | | | | | | [address] | | | | | | [phone] | | | | | | | | +--------+ + + + + | 02/09/ | Office | Neurology | Dhara, | | | 2020 | Visit | | [address] | | | | | | [address] [place], | | | | | | [place] [address] | | | | | | [phone] | | | | | | | | +--------+ + + + + documented as of this encounter Visit Diagnoses Not on filedocumented in this encounter"
--- OUTSIDE RECORDS SUMMARY | ~2019-09-30 | XMS | Clinical Summary ---
Demographics + + + | Address | [address] | | | [place] [address] | + + + | Home Phone [...] Providers + +------+ + | Care Housing Director Name | Role | Phone | [...] + | Overview: Genetic testing done by Housing Coordinator specialist and has 42% | | increase [...] | | 2019 | | | C, KINESIOTHERAPIST | (Primary Dx) | +--------+ + + [...] | | 2018 | Visit | | DIRECTOR MEDICAL SURGICAL | swallowing (Primary | | | | | | Dx) | +--------+ + + + + | 09/04/ | Telephone | Orthopedic Surgery | Herbert Herron | Other | | 2018 | | | LISA Abad | | +--------+ + + + + | 09/02/ | Clinical | Primary Care | Jenise Benitez, | | | 2018 | Support | | GLOST TILE SORTER | | +--------+ + + + + [...] cystitis | | 2019 | | | DIRECTOR MEDICAL SURGICAL | without hematuria | | | | [...] 2018 | | | MD Malcolm | [place]) | +--------+ + + + + | [...] | | 2018 | | | BAKARI Chapin | | +--------+ + + + + [...] | | 2018 | Visit | | COSTUME RENTAL CLERK-GLOST TILE SORTER | asthma with acute | | | [...] | Heart attack | Maternal | | [place] | | | Aunt | | | [...] | | | | | [place] [address] | | | | | | [phone] | | | | | | | | +--------+ + + + + | 10/30/ | Office | Primary Care | Betsy Ernst, | | | 2019 | Visit | | DO [address] | | | | | | [place] [address] | | | | | | [phone] | | | | | | | [...] [place] | | | | | | [address] | | | | | | [phone] | | | | | | | | +--------+ + + + + | 02/09/ | Office | Neurology | Dhara, | | | 2019 | Visit | | [address] | | | | | | [address] [place], | | | | | | [place] [address] | | | | | | [phone] | | | | | | | [...] | | | | | 11/25/ | [address] | | Qty: 3 on 03/20/2019 by | | | | | 2023 | / | | Yari Noriega MD at | | | | | | /[address] | | [facility] | | | | | [...] C?MRN: | | | | | | [id number] | | | [id number] | | | riteri | | | [...] C?MRN: | | | | | | [id number] | | | [id number] | | | riteri | | | [...] | | | VANI, | | | DIRECTOR MEDICAL SURGICAL 0 | | | | | | [...] | | | CHAD | | | EBTSY | | | A | | | [...] + + | [place] [facility] | [address] | [place] [address] | [phone] | | [facility] | | | | | [facility] | | | | + + [...] | Procedure Note | + + | Mitchle, Rad Results In - 09/26/2019 8:58 AM [...] - 1.030 | [place] | | | [place] | | | [facility] | | | [...] + + | [place] [facility] | [address] | [place] [address] | [phone] | | HOSPITAL LABORATORY | | | [...] [email or web address].[email or web address] | | | | | | [email or web address]/[email or web address] | | | | | | 02(This [...] | | | | | | code 15321) is | | | | | | [...] seehttps://education.que | | | | | | [employer].[email or web address]/FA | | | | | | Q22v1 Test(s) performed | | | | | | at: [facility] | | | | | | [facility] | | | | | | [address], | | | | | | [place], [place] | | | | | | [address] [facility] | | | | | | [facility] | | | | | | [facility] [place] [place] [address] | | | | | | RAMÓN #[id number] | | | | + + + + + + + + | Specimen | + + | Blood | + + + + + + + | Performing | Address | City/State/Zipcode | Phone Number | | Organization | | | | + + + + + | REFERENCE LAB | [address] | [place], [place] | | | [facility] - | | [address] | | | [place] | | [...] 0.4 | 0.0 - 0.5 % | [place] | | | Granulocyte | | | [...] + + | [place] [facility] | [address] | [place] [address] | [phone] | | HOSPITAL LAB[facility]ATORY | | | [...] + + | [place] [facility] | [address] | [place] [address] | [phone] | | HOSPITAL LABORATORY | | | [...] | mL/min/1.73m2 | [facility] | | | FIJIAN | RATE,ESTIMATED | | HOSPITAL | | | | mL/min/1.33w1Mbyw than | | LABORATORY | | | [...] + + | [place] [facility] | [address] | [place] [address] | [phone] | | HOSPITAL LABORATORY | | | [...] [facility] | | Jeffrey Gandhi MD, [facility], 09/19/19 describes | | | history of Kidner procedure performed Huerfano2015. The findings on | | | the [...] medial navicula. Note from Jeffrey Gandhi MD, [facility], 09/19/19 | | describes history of Kidner procedure performed Huerfano2015. The findings on the current | | [...] medial navicula. Note from Jeffrey Gandhi MD, [facility], 09/19/19 describes history of Kidner procedure performed Huerfano 2015. The findings on the current study [...] + + | [place] [facility] | [address] | [place] [address] | [phone] | | HOSPITAL LABORATORY | | | [...] + + | [place] [facility] | [address] | [place] [address] | [phone] | | HOSPITAL LABORATORY | | | [...] PHYSICIAN: Chris Bedolla M.D. PATIENT NAME: | [facility] | | ZENY SUH GENDER: Bre [...] | | contents and follicular cells seen ([place] category 2) (see | | | Description) [...] interpretation was performed by | | | [employer], [address] | | | [place] [address] ([place] [employer]: Desi Perez MD; CLIA# | | | [id number]). Technical preparation was performed by [employer] [facility] | | | [employer], [address] [place] [address] | | | ([place] [employer]: Carlos Eduardo Mayorga D.O.; CLIA#: [id number]). | | | Diagnostician: Chasity HACKETT ([facility]) Consumer Marketing Manager | | | Diagnostician: Erick Orr MD Pathologist Electronically | | | Signed 09/06/2019 | | + + + + +---------+ + + | Performing | Address | City/State/[facility] Servicescode | Phone Number | | Organization | [...] + + | [place] [facility] | [address] | [place] [address] | [phone] | | HOSPITAL LABORATORY | | | [...] + + + + + | [place] [facility] | [address] | [place] [address] | [phone] | | HOSPITAL LABORATORY | | | [...] | | [place] | | | | Slot Router | | | | | | [address] [facility] | | | | | | [place] [address] | | | | | | LISETTEIA #[id number] | | | | + + + + + + + + | Specimen | + + | Blood | + + + + + + + | Performing | Address | City/State/Zipcode | Phone Number | | Organization | | | | + + + + + | REFERENCE LAB | [address] | [place], [place] | | | [facility] - | | [address] | | | [place] | | [...] | | [place] | | | | [place] [place] | | | | | | [address] [facility] | | | | | | [place] [address] | | | | | | RAM[place] #[id number] | | | | + + + + + + + + | Specimen | + + | Blood | + + + + + + + | Performing | Address | City/State/Zipcode | Phone Number | | Organization | | | | + + + + + | REFERENCE LAB | [address] | [place], [place] | | | [facility] - | | [address] | | | [place] | | [...] | | [place] | | | | [place] | | | | | | [address] [facility] [facility] | | | | | | [place] [address] | | | | | | RAM[place] #[id number] | | | | + + + + + + + + | Specimen | + + | Blood | + + + + + + + | Performing | Address | City/State/Zipcode | Phone Number | | Organization | | | | + + + + + | REFERENCE LAB | [address] | [place], [place] | | | [facility] - | | [address] | | | [place] | | [...] | [address] | [place] [address] | [phone] | | [facility]ITAL [facility] | | | | | [facility] | | | | + + [...] + +--------+ +--------+ + +--------+ | SAIF Ampl[employer] | SAIF | [id number] | | [phone] | | Indemn | | | WC | | 019-Pr | 5 | | ity | | | | | esent | | | | + +--------+ +--------+ + +--------+ | MODA | MODA | [id number] | 01/31/20 | [phone] | [address] | PPO | | | HEALTH | | 18-Pre | 9 | [address] | | | | | | sent | | [place], | | | | [place] | | | | [place] [address] | | | | [place] | | | | | | + +--------+ +--------+ + +--------+ | [employer] | SAIF | [id number] | | [phone] | | Indemn | | | WC | | 018-Pr | 5 | | ity | | | | | esent | | | | + +--------+ +--------+ + +--------+ | SAIF TESFAYE | SAIF | [id number] | | [phone] | | PPO | | | MAJORI | | 018-Pr | 5 | | | | | S MCO | | esent | | | | + +--------+ +--------+ + +--------+ | SAIF TESFAYE | SAIF | [id number] | | [phone] | | Indemn | | | WC | | 018-Pr | 5 | | ity | | | | | esent | | | | + +--------+ +--------+ + +--------+ | MODA | MODA | [id number] | 10/02/19 | [phone] | [address] | PPO | | | HEALTH | | 18-Pre | 9 | [address] | | | | | | sent | | [place], | | | | [place] | | | | [place] [address] | | | | [place] | | [...] | | al/Fam | | 1989 | [phone] | [place] | | | jayna | | | 6 (Home) | [address] | | | | | | [phone] | | | | | | | 7 (Work) | | + +--------+ +--------+ + + | Zeny Suh | Person | Self | [birth year] | [address] | | | al/Fam | | 1989 | [id number] | [place], [place] | | | jayna | | | 6 (Home) | [address] | | | | | | [phone] | | | | | | | 7 (Work) | | + +--------+ +--------+ + + | Zeny Suh | Person | Self | [birth year] | [address] | | | al/Fam | | 1989 | [id number] | [place] | | | jayna | | | 6 (Home) | [address] | + +--------+ +--------+ + + | Zeny Suh | Worker | Self | [birth year] | | [address] | | | s Comp | | 1989 | [id number] | [place], [place] | | | | | | 6 (Home) | [address] | | | | | | [phone] | | | | | | | 7 (Work) | | + +--------+ +--------+ + + | IvetteZeny prince | Worker | Self | [birth year] | | [address] | | | s Comp | | 1989 | [phone] | [place] | | | | | | 6 (Home) | [address] | | | | | | [phone] | | | | | | | 7 (Work) | | + +--------+ +--------+ + + Advance Directives + + + + + | Type | Date Recorded | Patient | Explanation | | | | Butcher | | + + + + + | Power of | | | | | Gis Engineer | | | | + + + [...]
--- OUTSIDE RECORDS SUMMARY | ~2019-09-30 | XMS | Encounter Summary ---
Demographics + + + | Address | [address] | | | [place] [address] | + + + | Home Phone [...] Providers + +------+ + | Care Utility Operator Yarn Name | Role | Phone | + [...] CLINIC [address] | [place] [address] | | | | | [address] [place], | [phone] | | | | | [place] [address] | | | | | | [phone] | | | +--------+ + + + [...] | | | | | [place] [address] | | | | | | [phone] | | | | | | | | +--------+ + + + + | 10/30/ | Office | Primary Care | Erika Ernst, | | | 2019 | Visit | | DO [address] [place] [address] | | | | | | [place] [address] | | | | | | [phone] | | | | | | | [...] [place] | | | | | | [address] | | | | | | [phone] | | | | | | | | +--------+ + + + + | 02/09/ | Office | Neurology | Dhara, | | | 2019 | Visit | | [address] | | | | | | [address] [place], | | | | | | [place] [address] | | | | | | [phone] | | | | | | | | +--------+ + + + + documented as of this encounter Visit Diagnoses Not on filedocumented in this encounter"
--- OUTSIDE RECORDS SUMMARY | ~2019-09-30 | XMS | Encounter Summary ---
Demographics + + + | Address | [address] | | | [place] [address] | + + + | Home Phone [...] Team Providers + +------+ + | Care Affiliate Marketing Coordinator Name | Role | Phone | [...] [place] | | | | | | [address] | | | | | | [phone] | | | +--------+ + + + [...] | | | | | [place] [address] | | | | | | [phone] | | | | | | | | +--------+ + + + + | 10/30/ | Office | Primary Care | Erika Ernst, | | | 2019 | Visit | | DO [address] | | | | | | [place] [address] | | | | | | [phone] | | | | | | | [...] [place] | | | | | | [address] | | | | | | [phone] | | | | | | | | +--------+ + + + + | 02/09/ | Office | Neurology | Dhara, | | | 2019 | Visit | | [address] | | | | | | [address] [place], | | | | | | [place] [address] | | | | | | [phone] | | | | | | | | +--------+ + + + + documented as of this encounter Visit Diagnoses Not on filedocumented in this encounter"
--- OUTSIDE RECORDS SUMMARY | ~2019-09-30 | XMS | Encounter Summary ---
Demographics + + + | Address | [address] | | | [place] [address] | + + + | Home Phone [...] Providers + +------+ + | Care Cloth Washer Name | Role | Phone | + +------+ + PCP | Unavailable | + +------+ + Encounter Details +--------+ + + + + | Date | Type | Department | Care Team | Description | +--------+ + + + + | 06/10/ | [facility] | Caro Zendejas | | | 2013 | Encounter | [facility] | Vale, SILO ERECTOR [address] | | | | | MEDICAL [facility] [address] | [place], [place] | | | | | [address] [facility], | [address] | | | | | [place] [address] | [phone] | | | | | [phone] | | | +--------+ + + + [...] | | | | | [place] [address] | | | | | | [phone] | | | | | | | | +--------+ + + + + | 10/30/ | Office | Primary Care | Erika Ernst, | | | 2019 | Visit | | DO [address] | | | | | | [place] [address] | | | | | | [phone] | | | | | | | [...] [place] | | | | | | [address] | | | | | | [phone] | | | | | | | | +--------+ + + + + | 02/09/ | Office | Neurology | Dhara, | | | 2020 | Visit | | [address] | | | | | | [address] [place], | | | | | | [place] [address] | | | | | | [phone] | | | | | | | | +--------+ + + + + documented as of this encounter Visit Diagnoses Not on filedocumented in this encounter"
--- OUTSIDE RECORDS SUMMARY | ~2019-09-30 | XMS | Encounter Summary ---
Demographics + + + | Address | [address] | | | [place] [address] | + + + | Home Phone [...] Providers + +------+ + | Care Belt Maker Helper Name | Role | Phone | [...] | [place], [place] | [place] [address] | | | | | [address] | [phone] | | | | | [phone] | | | +--------+ + + + [...] | | | | | [place] [address] | | | | | | [phone] | | | | | | | | +--------+ + + + + | 10/30/ | Office | Primary Care | Erika Ernst, | | | 2019 | Visit | | DO [address] [place] [address] | | | | | | [place] [address] | | | | | | [phone] | | | | | | | [...] [place] | | | | | | [address] | | | | | | [phone] | | | | | | | | +--------+ + + + + | 02/09/ | Office | Neurology | Dhara, | | | 2019 | Visit | | [address] | | | | | | [address] [place], | | | | | | [place] [address] | | | | | | [phone] | | | | | | | | +--------+ + + + + documented as of this encounter Visit Diagnoses Not on filedocumented in this encounter"
--- OUTSIDE RECORDS SUMMARY | ~2019-09-30 | XMS | Encounter Summary ---
Demographics + + + | Address | [address] | | | [place] [address] | + + + | Home Phone [...] Team Providers + +------+ + | Care Transmission Supervisor Name | Role | Phone | + +------+ + PCP | Unavailable | + +------+ + Encounter Details +--------+ + + + + | Date | Type | Department | Care Team | Description | +--------+ + + + + | 04/12/ | [facility] | [facility] | Jenise Benitez, | | | 2016 | Encounter | [facility] | CLUB ATTENDANT [address] [place] | | | | | MEDICAL CLIN[facility] [address] | [place] [address] | | | | | [address] [place], | [phone] | | | | | [place] [address] | | | | | | [phone] | | | +--------+ + + + [...] | | | | | [place] [address] | | | | | | [phone] | | | | | | | | +--------+ + + + + | 10/30/ | Office | Primary Care | Erika Ernst, | | | 2019 | Visit | | DO [address] [place] | | | | | | [place] [address] | | | | | | [phone] | | | | | | | [...] [place] | | | | | | [address] | | | | | | [phone] | | | | | | | | +--------+ + + + + | 02/09/ | Office | Neurology | Dhara, | | | 2019 | Visit | | [address] | | | | | | [address] [place], | | | | | | [place] [address] | | | | | | [phone] | | | | | | | | +--------+ + + + + documented as of this encounter Visit Diagnoses Not on filedocumented in this encounter"
--- OUTSIDE RECORDS SUMMARY | ~2019-09-30 | XMS | Encounter Summary ---
Demographics + + + | Address | [address] | | | [place] [address] | + + + | Home Phone [...] Providers + +------+ + | Care Integration Lead Name | Role | Phone | [...] [address] | | | | | [place] [address] | | | | | | [phone] | | | +--------+ + + + [...] | | | | | [place] [address] | | | | | | [phone] | | | | | | | | +--------+ + + + + | 10/30/ | Office | Primary Care | Erika Ernst, | | | 2019 | Visit | | DO [address] | | | | | | [place] [address] | | | | | | [phone] | | | | | | | [...] [place] | | | | | | [address] | | | | | | [phone] | | | | | | | | +--------+ + + + + | 02/09/ | Office | Neurology | Dhara, | | | 2019 | Visit | | [address] | | | | | [address] [place], | | | | | | [place] [address] | | | | | | [phone] | | | | | | | | +--------+ + + + + documented as of this encounter Visit Diagnoses Not on filedocumented in this encounter"
--- OUTSIDE RECORDS SUMMARY | ~2019-09-30 | XMS | Encounter Summary ---
Demographics + + + | Address | [address] | | | [place] [address] | + + + | Home Phone [...] Team Providers + +------+ + | Care Lath Hand Name | Role | Phone | [...] | | | [place], [place] | [address] | | | | | [address] | | | | | | [phone] | | | +--------+ + + + [...] | Visit | | DO [address] | | | | | | [place] [address] | | | | | | [phone] | | | | | | | | +--------+ + + + + | 10/30/ | Office | Primary Care | Erika Ernst, | | | 2019 | Visit | | DO [address] [place] | | | | | | [place] [address] | | | | | | [phone] | | | | | | | [...] [place] | | | | | | [address] | | | | | | [phone] | | | | | | | | +--------+ + + + + | 02/09/ | Office | Neurology | Dhara, | | | 2019 | Visit | | DWAINE Ross [address] [place], | | | | | | [place] [address] | | | | | | [phone] | | | | | | | | +--------+ + + + + documented as of this encounter Visit Diagnoses Not on filedocumented in this encounter"
--- OUTSIDE RECORDS SUMMARY | ~2019-09-30 | XMS | Encounter Summary ---
Demographics + + + | Address | [address] | | | [place] [address] | + + + | Home Phone [...] Providers + +------+ + | Care Line Producer Name | Role | Phone | [...] | | | to excess | [place] [address] | [place], [place] | | | | | calories | Phone: | [phone] | | | | | without | [phone] | Phone: | | | | | serious | Fax: | [phone] | | | | | comorbidity | [phone] | Fax: | | | | | with body | | [phone] | | | | | mass index [...] | | | | | IN MED | | | | | [...] + | 06/06/ | Hospital | [facility] | Erika Ernst, | Essential | | 2019 | Encounter | HOSPITAL NUTRITION | DO [address] | hypertension, | | | | SERVICES [address] | [place] [address] | malignant; Morbid | | | | [place] | [phone] | obesity (HCC); Body | | | | [address] | | mass index | | | | [phone] | Janel Webster, | 50.0-59.9, adult | | | | | RD | ([facility]); [...] | 04/12/20 | | | (VITAMIN D3) 28[address] | mouth Once a week | tablet [...] [address] | | | | | | [phone] | | | | | | | | +--------+ + + + + | 10/30/ | Office | Primary Care | Erika Ernst, | | | 2019 | Visit | | DO [address] [place] | | | | | | [place] [address] | | | | | | [phone] | | | | | | | [...] [place] | | | | | | [address] | | | | | | [phone] | | | | | | | | +--------+ + + + + | 02/09/ | Office | Neurology | Dhara, | | | 2019 | Visit | | DWAINE Ross [address] [place], | | | | | | [place] [address] | | | | | | [phone] | | | | | | | [...]
--- OUTSIDE RECORDS SUMMARY | ~2019-09-30 | XMS | Encounter Summary ---
Demographics + + + | Address | [address] | | | [place] [address] | + + + | Home Phone [...] Team Providers + +------+ + | Care Pasting Machine Offbearer Name | Role | Phone | + +------+ + PCP | Unavailable | + +------+ + Encounter Details +--------+ + + + + | Date | Type | Department | Care Team | Description | +--------+ + + + + | 12/23/ | Hospital | [facility] [facility] | Heather Yip, | | | 2016 | Encounter | [facility] | RUBBER CALENDER HELPER [address] | | | | | [address] [place] | [place] [address] | | | | | [place], [place] | [phone] | | | | | [address] | | | | | | [phone] | | | +--------+ + + + [...] | | | | | [place] [address] | | | | | | [phone] | | | | | | | | +--------+ + + + + | 10/30/ | Office | Primary Care | Erika Ernst, | | | 2019 | Visit | | DO [address] | | | | | | [place] [address] | | | | | | [phone] | | | | | | | [...] [place] | | | | | | [address] | | | | | | [phone] | | | | | | | | +--------+ + + + + | 02/09/ | Office | Neurology | Dhara, | | | 2019 | Visit | | Cody, [facility] [address] | | | | | | [address]TH [facility], | | | | | | [place] [address] | | | | | | [phone] | | | | | | | [...] | NEGATIVE | EXTERNAL | | | [facility] | | | LAB | | + [...]
--- OUTSIDE RECORDS SUMMARY | ~2019-09-30 | XMS | Encounter Summary ---
Demographics + + + | Address | [address] | | | [place] [address] | + + + | Home Phone [...] Providers + +------+ + | Care Roving Hand Name | Role | Phone | [...] Results, Imaging | | 2019 | | [facility] | APARTMENT HOTEL MANAGER | | | | | MEDICAL CLINIC [address] | | | | | | [address]TH [facility] [place], | | | | | | [place] [address] | | | | | | [phone] | | | +--------+ + + + [...] 2019 | Visit | | DO [address] | | | | | | [place] [address] | | | | | | [phone] | | | | | | | | +--------+ + + + + | 10/30/ | Office | Primary Care | Erika Ernst, | | | 2019 | Visit | | DO [address] | | | | | | [place] [address] | | | | | | [phone] | | | | | | | [...] [place] | | | | | | [address] | | | | | | [phone] | | | | | | | | +--------+ + + + + | 02/09/ | Office | Neurology | Dhara, | | | 2019 | Visit | | DWAINE Ross [address] | | | | | [address] [place], | | | | | | [place] [address] | | | | | | [phone] | | | | | | | | +--------+ + + + + documented as of this encounter Visit Diagnoses Not on filedocumented in this encounter"
--- OUTSIDE RECORDS SUMMARY | ~2019-09-30 | XMS | Encounter Summary ---
Demographics + + + | Address | [address] | | | [place] [address] | + + + | Home Phone [...] Providers + +------+ + | Care Mill House Supervisor Name | Role | Phone | [...] | [place], [place] | [place] [address] | | | | | [address] | [phone] | | | | | [phone] | | | +--------+ + + + [...] | | | | | [place], [place] [address] | | | | | | [phone] | | | | | | | | +--------+ + + + + | 10/30/ | Office | Primary Care | Erika Ernst, | | | 2019 | Visit | | DO [address] [place] [address] | | | | | | [place] [address] | | | | | | [phone] | | | | | | | [...] [place] | | | | | | [address] | | | | | | [phone] | | | | | | | | +--------+ + + + + | 02/09/ | Office | Neurology | Dhara, | | | 2019 | Visit | | DWAINE Ross [address] | | | | | [address] [place], | | | | | | [place] [address] | | | | | | [phone] | | | | | | | | +--------+ + + + + documented as of this encounter Visit Diagnoses Not on filedocumented in this encounter"
--- OUTSIDE RECORDS SUMMARY | ~2019-09-30 | XMS | Encounter Summary ---
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 fema le who presents for f/u on bruise and pain at site of recent thyroid biopsy. Biopsy completed on 09-02-19 then f/u w/GRAIN ORIGINATION SPECIALIST Carlos [place] on 09-04-19. Pt stated that during he r appt w/GRAIN ORIGINATION SPECIALIST she was advised to rtn to clinic in "a couple days" if the pain does not subside . Pt's bruise was at the end of its progression and only a slightly yellowish area remained, pt also stated that the pain has gotten better since her last visit and she has be completi ng all recommendations for tx by GRAIN ORIGINATION SPECIALIST. Pt declined any other/new sx. I consulted [...] | | | | | [place] [address] | | | | | | [phone] | | | | | | | | +--------+ + + + + | 10/30/ | Office | Primary Care | Erika Ernst, | | | 2019 | Visit | | DO [address] [place] | | | | | | [place] [address] | | | | | | [phone] | | | | | | | [...] [place] | | | | | | [address] | | | | | | [phone] | | | | | | | | +--------+ + + + + | 02/09/ | Office | Neurology | Dhara, | | | 2019 | Visit | | DWAINE Ross [address] | | | | | | [address] [place], | | | | | | [place] [address] | | | | | | [phone] | | | | | | | | +--------+ + + + + documented as of this encounter Visit Diagnoses Not on filedocumented in this encounter
--- OUTSIDE RECORDS SUMMARY | ~2019-09-30 | XMS | Encounter Summary ---
Demographics + + + | Address | [address] | | | [place] [address] | + + + | Home Phone [...] Team Providers + +------+ + | Care Post Tensioning Ironworker Name | Role | Phone | + +------+ + PCP | Unavailable | + +------+ + Encounter Details +--------+ + + + + | Date | Type | Department | Care Team | Description | +--------+ + + + + | [facility] Denise Mcgregor | | | 2017 | Encounter | [facility] | G, HEAT TREAT SUPERVISOR [address] | | | | | MEDICAL CLINIC [address] | [place] | | | | | [address] [facility], | [address] | | | | | [place] [address] | [phone] | | | | | [phone] | | | +--------+ + + + [...] | | | | | [place] [address] | | | | | | [phone] | | | | | | | | +--------+ + + + + | 10/30/ | Office | Primary Care | Erika Ernst, | | | 2019 | Visit | | DO [address] [place] | | | | | | [place] [address] | | | | | | [phone] | | | | | | | [...] [place] | | | | | | [address] | | | | | | [phone] | | | | | | | | +--------+ + + + + | 02/09/ | Office | Neurology | Dhara, | | | 2019 | Visit | | DWAINE Ross [address] | | | | | [address] [place], | | | | | | [place] [address] | | | | | | [phone] | | | | | | | | +--------+ + + + + documented as of this encounter Visit Diagnoses Not on filedocumented in this encounter"
--- OUTSIDE RECORDS SUMMARY | ~2019-09-30 | XMS | Encounter Summary ---
Demographics + + + | Address | [address] | | | [place] [address] | + + + | Home Phone [...] Team Providers + +------+ + | Care Insulation Cupola Charger Name | Role | Phone | [...] | [address] [place], [place] | [place] [address] | | | | | [address] | [phone] | | | | | [phone] | | | +--------+ + + + [...] [address] | | | | | | [phone] | | | | | | | | +--------+ + + + + | 10/30/ | Office | Primary Care | Erika Ernst, | | | 2019 | Visit | | DO [address] [place] | | | | | | [place] [address] | | | | | | [phone] | | | | | | | [...] [place] | | | | | | [address] | | | | | | [phone] | | | | | | | | +--------+ + + + + | 02/09/ | Office | Neurology | Dhara, | | | 2020 | Visit | | DWAINE Ross [address] | | | | | | [address] [place], | | | | | | [place] [address] | | | | | | [phone] | | | | | | | | +--------+ + + + + documented as of this encounter Visit Diagnoses Not on filedocumented in this encounter"
--- OUTSIDE RECORDS SUMMARY | ~2019-09-30 | XMS | Encounter Summary ---
Demographics + + + | Address | [address] | | | [place] [address] | + + + | Home Phone [...] Team Providers + +------+ + | Care Metallographer Name | Role | Phone | + [...] | | | | s (de | [place], [place] | [place] [address] | | | | | quervain) | [address] | Phone: | | | | | Pain in | Phone: | [phone] | | | | | right wrist | [phone] | Fax: | | | | | Procedures | Fax: | [phone] | | | | | OT TREAT | [phone] | | +--------+--------+ + + + + Encounter Details +--------+ + + + + | Date | Type | Department | Care Team | Description | +--------+ + + + + | 12/19/ | Hospital | [facility] [facility] | Jeffery Gandhi, | Radial styloid | | 2019 | Encounter | HOSPITAL THERAPY OT | [address] | tenosynovitis | | | | [address] [place] | [place] [address] | (Primary Dx); Right | | | | [place], [place] | [phone] | wrist pain | | | | [address] | | | | | | [phone] | Michela Azevedo, | | | | [...] | 11/26/19 | | | (VITAMIN D3) 32417 | mouth Once a week | tablet [...] might be different f rom the original. [facility] THERAP[facility] OT [address] [place] [address] Occupational Therapy Daily Treatment Note Date: 12/19/2018 [...] period and is compliant with wrist and manager clinical research strengthening exercises. She does still hav e deficits in manager clinical research strength and wrist stability as well as pain with daily activities. Her j ob description may be changing which would decrease the physical demands of her work, making it more appropriate for her current status. She continues to benefit from Aircraft Refueller apy to maximize her manager clinical research strength and wrist stability following this injury and return her t o prior level of function. 10/30/2018 - REASON FOR RE-CERTIFICATION: Andrea has received 12 Occupational Therapy treatme nts since 08/07/2018 following her right wrist surgery. She has regained full AROM of the rig ht wrist but continues to have right wrist, manager clinical research and pinch weakness and significant pain (3- [...] in 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, and manager clinical research and pinch weakness in the right hand [...] | | | | | [place] [address] | | | | | | [phone] | | | | | | | | +--------+ + + + + | 10/30/ | Office | Primary Care | Erika Ernst, | | | 2019 | Visit | | DO [address] [place] | | | | | | [place] [address] | | | | | | [phone] | | | | | | | [...] [place] | | | | | | [address] | | | | | | [phone] | | | | | | | | +--------+ + + + + | 02/09/ | Office | Neurology | Dhara, | | | 2019 | Visit | | DWAINE [address] | | | | [address] [place], | | | | | | [place] [address] | | | | | | [phone] | | | | | | | | +--------+ + + + + documented as of this encounter Visit Diagnoses + + | Diagnosis | + + | Radial styloid tenosynovitis - Primary | + + | Right wrist pain Pain in joint, forearm | + + documented in this encounter"
--- OUTSIDE RECORDS SUMMARY | ~2019-09-30 | XMS | Encounter Summary ---
Demographics + + + | Address | [address] | | | [place] [address] | + + + | Home Phone [...] Providers + +------+ + | Care Light Armored Reconnaissance Officer Name | Role | Phone | [...] | [place], [place] | [place] [address] | | | | | [address] | [phone] | | | | | [phone] | | | +--------+ + + + [...] | | | | | [place] [address] | | | | | | [phone] | | | | | | | | +--------+ + + + + | 10/30/ | Office | Primary Care | Erika Ernst, | | | 2019 | Visit | | DO [address] [place] | | | | | | [place] [address] | | | | | | [phone] | | | | | | | [...] [place] | | | | | | [address] | | | | | | [phone] | | | | | | | | +--------+ + + + + | 02/09/ | Office | Neurology | Dhara, | | | 2019 | Visit | | DWA[address] | | | | | [address] [place], | | | | | | [place] [address] | | | | | | [phone] | | | | | | | | +--------+ + + + + documented as of this encounter Visit Diagnoses Not on filedocumented in this encounter"
--- OUTSIDE RECORDS SUMMARY | ~2019-09-30 | XMS | Encounter Summary ---
Demographics + + + | Address | [address] | | | [place] [address] | + + + | Home Phone [...] Providers + +------+ + | Care Carpenter Mold Name | Role | Phone | + +------+ + PCP | Unavailable | + +------+ + Encounter Details +--------+ + + + + | Date | Type | Department | Care Team | Description | +--------+ + + + + | 01/25/ | [facility] | Heike Rodriguez, | | | 2015 | Encounter | HOSPITAL EM[facility]Y | SHERIFF DETECTIVE [address] | | | | | CENTER [address] | [place] | | | | | [place] | [address] | | | | | [address] | | | | | | [phone] | | | +--------+ + + + [...] | | | | | [place] [address] | | | | | | [phone] | | | | | | | | +--------+ + + + + | 10/30/ | Office | Primary Care | Erika Ernst, | | | 2019 | Visit | | DO [address] [place] | | | | | | [place] [address] | | | | | | [phone] | | | | | | | [...] [place] | | | | | | [address] | | | | | | [phone] | | | | | | | | +--------+ + + + + | 02/09/ | Office | Neurology | Dhara, | | | 2020 | Visit | | DWAINE [address] | | | | | | [address] [place], | | | | | | [place] [address] | | | | | | [phone] | | | | | | | | +--------+ + + + + documented as of this encounter Visit Diagnoses Not on filedocumented in this encounter"
--- OUTSIDE RECORDS SUMMARY | ~2019-09-30 | XMS | Encounter Summary ---
Demographics + + + | Address | [address] | | | [place] [address] | + + + | Home Phone [...] Providers + +------+ + | Care Adjunct Psychology Instructor Name | Role | Phone | [...] | | | of left | [place] [address] | [place] [address] | | | | | ankle, | Phone: | Phone: | | | | | initial | [phone] | [phone] | | | | | encounter | Fax: | Fax: | | | | | Procedures | [phone] | [phone] | | | | | PT EVAL [...] [address] [place] | [place] [address] | encounter (Primary | | | | [place], [place] | [phone] | Dx) | | | | [address] | | | | | | [phone] | Nick Barrios I, PT | | [...] the original. [facility] THERAPY PT [address] [place] [address] Physical Therapy Daily Treatment Note Date: 08/28/2018 [...] in favor of SL heel raise with CHEMICAL PRODUCTION ENGINEER. ONGOING: SLS on even surface 3x30 seconds [...] minutes) Rhomberg stance on bosu eyes open CHEMICAL PRODUCTION ENGINEER as needed 1 minute // SLS on bosu CHEMICAL PRODUCTION ENGINEER grab bar as needed 1x1 minute 2x30 [...] at 5/10 today Electronically signed by: Nick Brarios PT, 08/28/2018 11:52 Patient Name: Andrea Suh/: [...] | | | | | [place] [address] | | | | | | [phone] | | | | | | | | +--------+ + + + + | 10/30/ | Office | Primary Care | Erika Ernst, | | | 2019 | Visit | | DO [address] | | | | | | [place] [address] | | | | | | [phone] | | | | | | | [...] [place] | | | | | | [address] | | | | | | [phone] | | | | | | | | +--------+ + + + + | 02/09/ | Office | Neurology | Dhara, | | | 2020 | Visit | | Cody[address]INE [address] | | | | | | 4TH [facility] [place], | | | | | | [place] [address] | | | | | | [phone] | | | | | | | | +--------+ + + + + documented as of this encounter Visit Diagnoses + + | Diagnosis | + + | Sprain of left ankle, subsequent encounter - Primary | + + documented in this encounter
--- OUTSIDE RECORDS SUMMARY | ~2019-09-30 | XMS | Encounter Summary ---
Demographics + + + | Address | [address] | | | [place] [address] | + + + | Home Phone [...] Providers + +------+ + | Care Director Geophysical Laboratory Name | Role | Phone [...] Medication Refill | | 2019 | | [facility] | DO [address] | | | | | W[facility] CL[facility] [address] | [address] [place] | | | | | [address] [place], | [place] [address] | | | | | [place] [address] | [phone] | | | | | [phone] | | | +--------+--------+ + + + [...] | | | | | [place] [address] | | | | | | [phone] | | | | | | | | +--------+ + + + + | 10/30/ | Office | Primary Care | Erika Ernst, | | | 2019 | Visit | | DO [address] | | | | | | [place] [address] | | | | | | [phone] | | | | | | | [...] [place] | | | | | | [address] | | | | | | [phone] | | | | | | | | +--------+ + + + + | 02/09/ | Office | Neurology | Dhara, | | | 2020 | Visit | | DWAINE Ross [address] | | | | | | [address] [place], | | | | | | [place] [address] | | | | | | [phone] | | | | | | | | +--------+ + + + + documented as of this encounter Visit Diagnoses Not on filedocumented in this encounter"
--- OUTSIDE RECORDS SUMMARY | ~2019-09-30 | XMS | Encounter Summary ---
Demographics + + + | Address | [address] | | | [place] [address] | + + + | Home Phone [...] Team Providers + +------+ + | Care Scabbler Name | Role | Phone | + [...] Pressure | | 2019 | | [facility] | [facility] | | | | | MEDICAL CLINIC [address] | | | | | | [address] [facility] [place], | | | | | | [place] [address] | | | | | | [phone] | | | +--------+ + + + [...] | | | | | [place] [address] | | | | | | [phone] | | | | | | | | +--------+ + + + + | 10/30/ | Office | Primary Care | Erika Ernst, | | | 2019 | Visit | | DO [address] [place] | | | | | | [place] [address] | | | | | | [phone] | | | | | | | [...] [place] | | | | | | [address] | | | | | | [phone] | | | | | | | | +--------+ + + + + | 02/09/ | Office | Neurology | Dhara, | | | 2019 | Visit | | DWAINE Ross [address] | | | | | [address] [place], | | | | | | [place] [address] | | | | | | [phone] | | | | | | | | +--------+ + + + + documented as of this encounter Visit Diagnoses Not on filedocumented in this encounter"
--- OUTSIDE RECORDS SUMMARY | ~2019-09-30 | XMS | Encounter Summary ---
Demographics + + + | Address | [address] | | | [place] [address] | + + + | Home Phone [...] Providers + +------+ + | Care Reclamation Worker Name | Role | Phone | [...] | | | MEDICAL CLINIC [address] | [place] [address] | | | | | [address] [facility], | [phone] | | | | | [place] [address] | | | | | | [phone] | | | +--------+ + + + [...] | | | | | [place] [address] | | | | | | [phone] | | | | | | | | +--------+ + + + + | 10/30/ | Office | Primary Care | Erika Ernst, | | | 2019 | Visit | | DO [address] [place] | | | | | | [place] [address] | | | | | | [phone] | | | | | | | [...] [place] | | | | | | [address] | | | | | | [phone] | | | | | | | | +--------+ + + + + | 02/09/ | Office | Neurology | Dhara, | | | 2020 | Visit | | DWAINE [address] | | | | | | [address] [place], | | | | | | [place] [address] | | | | | | [phone] | | | | | | | | +--------+ + + + + documented as of this encounter Visit Diagnoses Not on filedocumented in this encounter"
--- OUTSIDE RECORDS SUMMARY | ~2019-09-30 | XMS | Encounter Summary ---
Demographics + + + | Address | [address] | | | [place] [address] | + + + | Home Phone [...] Team Providers + +------+ + | Care Scoop Filler Name | Role | Phone | [...] | | | 2019 | Support | [facility] | DWAINE Rob | | | | | W[facility] [address] | [address] [place] | | | | | [address] [place], | [place] [address] | | | | | [place] [address] | [phone] | | | | | [phone] | | | +--------+ + + + [...] | | | | | [place] [address] | | | | | | [phone] | | | | | | | | +--------+ + + + + | 10/30/ | Office | Primary Care | Erika Ernst, | | | 2019 | Visit | | DO [address] [place] | | | | | | [place] [address] | | | | | | [phone] | | | | | | | [...] [place] | | | | | | [address] | | | | | | [phone] | | | | | | | | +--------+ + + + + | 02/09/ | Office | Neurology | Dhara, | | | 2019 | Visit | | DWAINE [address] | | | | | | [address] [place], | | | | | | [place] [address] | | | | | | [phone] | | | | | | | | +--------+ + + + + documented as of this encounter Visit Diagnoses Not on filedocumented in this encounter"
--- OUTSIDE RECORDS SUMMARY | ~2019-09-30 | XMS | Encounter Summary ---
Demographics + + + | Address | [address] | | | [place] [address] | + + + | Home Phone [...] Team Providers + +------+ + | Care Tanker Driver Name | Role | Phone [...] right | | 2019 | Visit | [facility] | DO [address] [place] | ankle, unspecified | | | | [facility] [address] | [place] [address] | ligament, initial | | | | [address] [place], | [phone] | encounter (Primary | | | | [place] [address] | | Dx); Contusion of | | | | [phone] | Camille Bush, DWAINE | right knee, initial | | | | | [address] [place] | encounter | | | | | [place] [address] | | | | | | [phone] | | | | | | | [...] don t get better. Date Last Reviewed: 12/31/201619998589-8054 [employer]. [address] [place] [address], [place] [address]. All [facility] ts reserved. This information is not [...] until the sp rain heals. Prescription or iyst-xfb-chrbwnb pain medicines. These help reduce swelling and [...] get worse New symptoms Date Last Reviewed: 12/10/201519994641-9923 [employer]. [address] [place] [address], [place] [address]. All righ ts reserved. This information is [...] having falling last night at 10pm at [facility] floor where she slipped an d [...] - Elastic Bandages & Supports (ANKLE BRACE [id number]) MISC; 1 Units by Does not apply [...] worsen ing., With your PCP. CAITIE [id number] [facility], [facility] documented in this en [...] | | | | | [place] [address] | | | | | | [phone] | | | | | | | | +--------+ + + + + | 10/30/ | Office | Primary Care | Erika Ernst, | | | 2019 | Visit | | DO [address] [place] | | | | | | [place] [address] | | | | | | [phone] | | | | | | | [...] [place] | | | | | | [address] | | | | | | [phone] | | | | | | | | +--------+ + + + + | 02/09/ | Office | Neurology | Dhara, | | | 2019 | Visit | | [address]WAINE [address] | | | | | [address] [place], | | | | | | [place] [address] | | | | | | [phone] | | | | | | | [...]
--- OUTSIDE RECORDS SUMMARY | ~2019-09-30 | XMS | Encounter Summary ---
Demographics + + + | Address | [address] | | | [place] [address] | + + + | Home Phone [...] Providers + +------+ + | Care Television Mechanic Name | Role | Phone | [...] | [address] | | | | | [address] | | | | | | [phone] | | | +--------+ + + + [...] | Visit | | DO [address] | | | | | | [place] [address] | | | | | | [phone] | | | | | | | | +--------+ + + + + | 10/30/ | Office | Primary Care | Erika Ernst, | | | 2019 | Visit | | DO [address] [facility] [place] | | | | | | [place] [address] | | | | | | [phone] | | | | | | | [...] [place] | | | | | | [address] | | | | | | [phone] | | | | | | | | +--------+ + + + + | 02/09/ | Office | Neurology | Dahra, | | | 2019 | Visit | | [address]WAINE [address] | | | | | [address] [place], | | | | | | [place] [address] | | | | | | [phone] | | | | | | | | +--------+ + + + + documented as of this encounter Visit Diagnoses Not on filedocumented in this encounter"
--- OUTSIDE RECORDS SUMMARY | ~2019-09-30 | XMS | Encounter Summary ---
Demographics + + + | Address | [address] | | | [place] [address] | + + + | Home Phone [...] Providers + +------+ + | Care Cook Supervisor Name | Role | Phone | [...] 10/18/ | Telephone | [place] | Anastasai Alberto, | Results ([facility] to | | 2019 | | [facility] | [facility] [address] [facility] | [place], phone vm is | | | | [facility] [address] | [place] [address] | clear now, please | | | | [address] [place], | [phone] | call again) | | | | [place] [address] | | | | | | [phone] | | | +--------+ + + + [...] | | | | | [place] [address] | | | | | | [phone] | | | | | | | | +--------+ + + + + | 10/30/ | Office | Primary Care | Erika Ernst, | | | 2019 | Visit | | DO [address] | | | | | | [place] [address] | | | | | | [phone] | | | | | | | [...] [place] | | | | | | [address] | | | | | | [phone] | | | | | | | | +--------+ + + + + | 02/09/ | Office | Neurology | Dhara, | | | 2020 | Visit | | DWAINE Ross [address] [place], | | | | | | [place] [address] | | | | | | [phone] | | | | | | | | +--------+ + + + + documented as of this encounter Visit Diagnoses Not on filedocumented in this encounter"
--- OUTSIDE RECORDS SUMMARY | ~2019-09-30 | XMS | Encounter Summary ---
Demographics + + + | Address | [address] | | | [place] [address] | + + + | Home Phone [...] Team Providers + +------+ + | Care Erco Machine Operator Name | Role | Phone [...] | | | [place], [place] | [address] | | | | | [address] | [phone] | | | | | [phone] | | | +--------+ + + + [...] | | | | | [place] [address] | | | | | | [phone] | | | | | | | | +--------+ + + + + | 10/30/ | Office | Primary Care | Erika Ernst, | | | 2019 | Visit | | DO [address] | | | | | | [place] [address] | | | | | | [phone] | | | | | | | [...] [place] | | | | | | [address] | | | | | | [phone] | | | | | | | | +--------+ + + + + | 02/09/ | Office | Neurology | Dhara, | | | 2020 | Visit | | [address] | | | | | | [address] [place], | | | | | | [place] [address] | | | | | | [phone] | | | | | | | | +--------+ + + + + documented as of this encounter Visit Diagnoses Not on filedocumented in this encounter"
--- OUTSIDE RECORDS SUMMARY | ~2019-09-30 | XMS | Encounter Summary ---
Demographics + + + | Address | [address] | | | [place] [address] | + + + | Home Phone [...] Team Providers + +------+ + | Care Hemodialysis Patient Care Specialist Name | Role | Phone | + +------+ + PCP | Unavailable | + +------+ + Encounter Details +--------+ + + + + | Date | Type | Department | Care Team | Description | +--------+ + + + + | 05/14/ | [facility] | Caro Zendejas | | | 2013 | Encounter | [facility] | Vale, INFORMATICS COORDINATOR [address] | | | | | [facility] [address] | [facility], [place] | | | | | 4TH [facility], | [address] | | | | | [place] [address] | [phone] | | | | | [phone] | | | +--------+ + + + [...] | | | | | [place] [address] | | | | | | [phone] | | | | | | | | +--------+ + + + + | 10/30/ | Office | Primary Care | Erika Ernst, | | | 2019 | Visit | | DO [address] [place] | | | | | | [place] [address] | | | | | | [phone] | | | | | | | [...] [place] | | | | | | [address] | | | | | | [phone] | | | | | | | | +--------+ + + + + | 02/09/ | Office | Neurology | Dhara, | | | 2020 | Visit | | [address]WA[address] | | | | | | [address] [place], | | | | | | [place] [address] | | | | | | [phone] | | | | | | | | +--------+ + + + + documented as of this encounter Visit Diagnoses Not on filedocumented in this encounter"
--- OUTSIDE RECORDS SUMMARY | ~2019-09-30 | XMS | Encounter Summary ---
Demographics + + + | Address | [address] | | | [place] [address] | + + + | Home Phone [...] Providers + +------+ + | Care Fire Truck Driver Name | Role | Phone [...] [address] | [place] [address] | | | | | [address] [place], | [phone] | | | | | [place] [address] | | | | | | [phone] | | | +--------+ + + + [...] | | | | | [place] [address] | | | | | | [phone] | | | | | | | | +--------+ + + + + | 10/30/ | Office | Primary Care | Erika Ernst, | | | 2019 | Visit | | DO [address] [place] | | | | | | [place] [address] | | | | | | [phone] | | | | | | | [...] [place] | | | | | | [address] | | | | | | [phone] | | | | | | | | +--------+ + + + + | 02/09/ | Office | Neurology | Dhara, | | | 2020 | Visit | | [address] | | | | | | [address] [place], | | | | | | [place] [address] | | | | | | [phone] | | | | | | | | +--------+ + + + + documented as of this encounter Visit Diagnoses Not on filedocumented in this encounter"
--- OUTSIDE RECORDS SUMMARY | ~2019-09-30 | XMS | Encounter Summary ---
Demographics + + + | Address | [address] | | | [place] [address] | + + + | Home Phone [...] + +------+ + | Care Heavy Equipment Plumbing Supervisor Name | Role | Phone | [...] | | | of left | [place] [address] | [place] [address] | | | | | ankle, | Phone: | Phone: | | | | | initial | [phone] | [phone] | | | | | encounter | Fax: | Fax: | | | | | Procedures | [phone] | [phone] | | | | | PT TREAT [...] [address] [place] | [place] [address] | encounter (Primary | | | | [place], [place] | [phone] | Dx) | | | | [address] | | | | | | [phone] | Nick Barrios I, PT | | [...] might be different fro m the original. [facility] PT [address] [place] [address] Physical Therapy Daily Treatment Note Date: 09/07/2018 [...] in favor of SL heel raise with BUFFING WHEEL OPERATOR. ONGOING: SLS on even surface 3x30 seconds [...] minutes) Rhomberg stance on airex eyes closed BUFFING WHEEL OPERATOR as needed 2x1 minute // SLS on even ground BUFFING WHEEL OPERATOR grab bar as needed 1x30 seconds 2x1 [...] | | | | | [place] [address] | | | | | | [phone] | | | | | | | | +--------+ + + + + | 10/30/ | Office | Primary Care | Erika Ernst, | | | 2019 | Visit | | DO [address] [place] | | | | | | [place] [address] | | | | | | [phone] | | | | | | | [...] [place] | | | | | | [address] | | | | | | [phone] | | | | | | | | +--------+ + + + + | 02/09/ | Office | Neurology | Dhara, | | | 2019 | Visit | | [address]WA[address] | | | | | | [address] [place], | | | | | | [place] [address] | | | | | | [phone] | | | | | | | | +--------+ + + + + documented as of this encounter Visit Diagnoses + + | Diagnosis | + + | Sprain of left ankle, subsequent encounter - Primary | + + documented in this encounter
--- OUTSIDE RECORDS SUMMARY | ~2019-09-30 | XMS | Encounter Summary ---
Demographics + + + | Address | [address] | | | [place] [address] | + + + | Home Phone [...] Providers + +------+ + | Care Patient Access Associate Name | Role | Phone | [...] [address] | | | | | [place] [address] | | | | | | [phone] | | | +--------+ + + + [...] | | | | | [place] [address] | | | | | | [phone] | | | | | | | | +--------+ + + + + | 10/30/ | Office | Primary Care | Erika Ernst, | | | 2019 | Visit | | DO [address] | | | | | | [place] [address] | | | | | | [phone] | | | | | | | [...] [place] | | | | | | [address] | | | | | | [phone] | | | | | | | | +--------+ + + + + | 02/09/ | Office | Neurology | Dhara, | | | 2020 | Visit | | [address]WA[address] | | | | | | [address] [place], | | | | | | [place] [address] | | | | | | [phone] | | | | | | | | +--------+ + + + + documented as of this encounter Visit Diagnoses Not on filedocumented in this encounter"
--- OUTSIDE RECORDS SUMMARY | ~2019-09-30 | XMS | Encounter Summary ---
Demographics + + + | Address | [address] | | | [place] [address] | + + + | Home Phone [...] Providers + +------+ + | Care Dialysis Registered Nurse Name | Role | Phone | [...] | n | lar ligament | [place], | [place], | | | | | of left | [place] [address] | [place] [address] | | | | | ankle, | Phone: | Phone: | | | | | initial | [phone] | [phone] | | | | | encounter | Fax: | Fax: | | | | | Procedures | [phone] | [phone] | | | | | PT EVAL [...] [address] [place] | [place] [address] | encounter (Primary | | | | [place], [place] | [phone] | Dx); Fall on same | | | | [address] | | level from slipping, | | | | [phone] | Nick Barrios I, PT | subsequent [...] might be different fro m the original. [facility] PT [address] [place] [address] Physical Therapy Daily Treatment Note Date: 08/07/2018 [...] balance exercises well, but continues to require PROCEDURES TECH with use of hip and ankle strategies [...] in favor of SL heel raise with PROCEDURES TECH. ONGOING: SLS on even surface 3x30 seconds [...] (15 minutes) SL stance on airex with PROCEDURES TECH 3x30 sec eyes open/closed e ach // Tandem stance 2x1 minute each foot position PROCEDURES TECH // DL stance on round bosu 2x1 minute each eyes open/closed PROCEDURES TECH // additional time required for rest between [...] [address] | | | | | | [phone] | | | | | | | | +--------+ + + + + | 10/30/ | Office | Primary Care | Erika Ernst, | | | 2019 | Visit | | DO [address] [place] | | | | | | [place] [address] | | | | | | [phone] | | | | | | | [...] [place] | | | | | | [address] | | | | | | [phone] | | | | | | | | +--------+ + + + + | 02/09/ | Office | Neurology | Dhara, | | | 2019 | Visit | | DWA[address] Ross [address] | | | | | | [address] [place], | | | | | | [place] [address] | | | | | | [phone] | | | | | | | | +--------+ + + + + documented as of this encounter Visit Diagnoses + + | Diagnosis | + + | Sprain of left ankle, subsequent encounter - Primary | + + | Fall on same level from slipping, subsequent encounter | + + documented in this encounter
--- OUTSIDE RECORDS SUMMARY | ~2019-09-30 | XMS | Encounter Summary ---
Demographics + + + | Address | [address] | | | [place] [address] | + + + | Home Phone [...] Providers + +------+ + | Care Paper Reel Operator Name | Role | Phone | [...] | [place] | [place] [address] | | | | | [address] | [phone] | | | | | [phone] | | | +--------+ + + + [...] | | | | | [place] [address] | | | | | | [phone] | | | | | | | | +--------+ + + + + | 10/30/ | Office | Primary Care | Erika Ernst, | | | 2019 | Visit | | DO [address] | | | | | | [place] [address] | | | | | | [phone] | | | | | | | [...] [place] | | | | | | [address] | | | | | | [phone] | | | | | | | | +--------+ + + + + | 02/09/ | Office | Neurology | Dhara, | | | 2020 | Visit | | [address] | | | | | | [address] [place], | | | | | | [place] [address] | | | | | | [phone] | | | | | | | | +--------+ + + + + documented as of this encounter Visit Diagnoses Not on filedocumented in this encounter"
--- OUTSIDE RECORDS SUMMARY | ~2019-09-30 | XMS | Encounter Summary ---
Demographics + + + | Address | [address] | | | [place] [address] | + + + | Home Phone [...] Providers + +------+ + | Care Lime Mixer Name | Role | Phone | [...] | Results | | 2019 | | [facility] | DO [address] | | | | | MEDICAL CLINIC [address] | [place] [address] | | | | | [address] [place], | [phone] | | | | | [place] [address] | | | | | | [phone] | | | +--------+ + + + [...] | 2018 | Visit | | DO [address] [place] [address] | | | | | | [place] [address] | | | | | | [phone] | | | | | | | | +--------+ + + + + | 10/30/ | Office | Primary Care | Erika Ernst, | | | 2019 | Visit | | DO [address] [place] | | | | | | [place] [address] | | | | | | [phone] | | | | | | | [...] [place] | | | | | | [address] | | | | | | [phone] | | | | | | | | +--------+ + + + + | 02/09/ | Office | Neurology | Dhara, | | | 2019 | Visit | | DWA[address] Ross [address] | | | | | | [address] [place], | | | | | | [place] [address] | | | | | | [phone] | | | | | | | | +--------+ + + + + documented as of this encounter Visit Diagnoses Not on filedocumented in this encounter"
--- OUTSIDE RECORDS SUMMARY | ~2019-09-30 | XMS | Encounter Summary ---
Demographics + + + | Address | [address] | | | [place] [address] | + + + | Home Phone [...] Providers + +------+ + | Care Boat Buffer Plastic Name | Role | Phone | + [...] | | | of left | [place] [address] | [place] [address] | | | | | ankle, | Phone: | Phone: | | | | | initial | [phone] | [phone] | | | | | encounter | Fax: | Fax: | | | | | Procedures | [phone] | [phone] | | | | | PT EVAL [...] [address] | [place] [address] | ligament of left | | | | [place], [place] | [phone] | ankle, initial | | | | [address] | | encounter | | | | [phone] | Nick Barrios I, PT | | [...] might be different hannah tan the original. [facility] PT [address] [place] [address] Physical Therapy Daily Treatment Note Date: 07/10/2018 [...] been noticing "popping" sounds when performing ankle santa rosa exercises at home. Sh e felt fine [...] | | | | | [place] [address] | | | | | | [phone] | | | | | | | | +--------+ + + + + | 10/30/ | Office | Primary Care | Erika Ernst, | | | 2019 | Visit | | DO [address] [place] | | | | | | [place] [address] | | | | | | [phone] | | | | | | | [...] [place] | | | | | | [address] | | | | | | [phone] | | | | | | | | +--------+ + + + + | 02/09/ | Office | Neurology | Dhara, | | | 2019 | Visit | | [address] | | | | | | [address] [place], | | | | | | [place] [address] | | | | | | [phone] | | | | | | | | +--------+ + + + + documented as of this encounter Visit Diagnoses + + | Diagnosis | + + | Sprain of calcaneofibular ligament of left ankle, initial encounter | + + documented in this encounter
--- OUTSIDE RECORDS SUMMARY | ~2019-09-30 | XMS | Encounter Summary ---
Demographics + + + | Address | [address] | | | [place] [address] | + + + | Home Phone [...] Providers + +------+ + | Care Spiral Tube Winder Helper Name | Role | Phone | + +------+ + PCP | Unavailable | + +------+ + Encounter Details +--------+ + + + + | Date | Type | Department | Care Team | Description | +--------+ + + + + | [facility] Denise Mcgregor | | | 2017 | Encounter | [facility] | G, SPORTS THERAPIST [address] | | | | | MEDICAL CLIN[facility] [address] | [place] | | | | | [address] [facility] | [address] | | | | | [place] [address] | [phone] | | | | | [phone] | | | +--------+ + + + [...] | | | | | [place] [address] | | | | | | [phone] | | | | | | | | +--------+ + + + + | 10/30/ | Office | Primary Care | Erika Ernst, | | | 2019 | Visit | | DO [address] | | | | | | [place] [address] | | | | | | [phone] | | | | | | | [...] [place] | | | | | | [address] | | | | | | [phone] | | | | | | | | +--------+ + + + + | 02/09/ | Office | Neurology | Dhara, | | | 2020 | Visit | | [address] | | | | | | [address] [place], | | | | | | [place] [address] | | | | | | [phone] | | | | | | | | +--------+ + + + + documented as of this encounter Visit Diagnoses Not on filedocumented in this encounter"
--- OUTSIDE RECORDS SUMMARY | ~2019-09-30 | XMS | Encounter Summary ---
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 | | | [...] | : 1990 | Medical Record Number:[id number] | Author: Emily Mittal DPM | Date [...] BID 60 tablet 3 Cholecalciferol (VITAMIN D3) 38301 units TABS Take 1 tablet by mouth [...] PROCEDURE 01/20/2016 Surgeon: Fani Mahajan MD; Location: [facility] TENDON RELEASE TONSILLECTOMY WISDOM TOOTH EXTRACTION Family History Problem Relation Age of Onset Other (see comment) Mother gallbladder disease Hypertension Father Other (see comment) Father arrhymthmia Breast cancer Sister Cervical cancer Maternal Grandmother Heart attack Maternal Aunt [place] Social History Social History Marital status: Single [...] their vital signs recorded by my assistant office manager today, leslie s found in this chart note. Electronically signed by: Emily Mittal DPM 12/06/2018 at 12:42 Note: Part of this report was transcribed using voice recognition software. Every effort wa s made to ensure accuracy. However, inadvertent computerized lead fire protection engineer errors may be pre sent. CC: Erika [...] | | | [facility] [address] | | | | | | [phone] | | | | | | | | +--------+ + + + + | 10/30/ | Office | Primary Care | Erika Ernst, | | | 2019 | Visit | | DO [address] [place] | | | | | | [place] [address] | | | | | | [phone] | | | | | | | [...] [place] | | | | | | [address] | | | | | | [phone] | | | | | | | | +--------+ + + + + | 02/09/ | Office | Neurology | Dhara, | | | 2019 | Visit | | [address] | | | | | | [address] [place], | | | | | | [place] [address] | | | | | | [phone] | | | | | | | [...]
--- OUTSIDE RECORDS SUMMARY | ~2019-09-30 | XMS | Encounter Summary ---
Demographics + + + | Address | [address] | | | [place] [address] | + + + | Home Phone [...] Providers + +------+ + | Care Time Motion Analyst Name | Role | Phone | [...] | | | 2019 | Support | [facility] | DO [address] | | | | | MEDICAL CLINIC [address] | [place] [address] | | | | | [address] [place], | [phone] | | | | | [place] [address] | | | | | | [phone] | | | +--------+ + + + [...] | | | | | [place] [address] | | | | | | [phone] | | | | | | | | +--------+ + + + + | 10/30/ | Office | Primary Care | Erika Ernst, | | | 2019 | Visit | | DO [address] [place] [address] | | | | | | [place] [address] | | | | | | [phone] | | | | | | | [...] [place] | | | | | | [address] | | | | | | [phone] | | | | | | | | +--------+ + + + + | 02/09/ | Office | Neurology | Dhara, | | | 2019 | Visit | | [address] | | | | | | [address] [place], | | | | | | [place] [address] | | | | | | [phone] | | | | | | | | +--------+ + + + + documented as of this encounter Visit Diagnoses Not on filedocumented in this encounter"
--- OUTSIDE RECORDS SUMMARY | ~2019-09-30 | XMS | Encounter Summary ---
Demographics + + + | Address | [address] | | | [place] [address] | + + + | Home Phone [...] | | | [address] | [facility] [place] | | | | | [place], [place] | [address] | | | | | [address] | [phone] | | | | | [phone] | | | +--------+ + + + [...] | | | | | [place] [address] | | | | | | [phone] | | | | | | | | +--------+ + + + + | 10/30/ | Office | Primary Care | Erika Ernst, | | | 2019 | Visit | | DO [address] [place] | | | | | | [place] [address] | | | | | | [phone] | | | | | | | [...] [place] | | | | | | [address] | | | | | | [phone] | | | | | | | | +--------+ + + + + | 02/09/ | Office | Neurology | Dhara, | | | 2020 | Visit | | [address] | | | | | | [address] [place], | | | | | | [place] [address] | | | | | | [phone] | | | | | | | | +--------+ + + + + documented as of this encounter Visit Diagnoses Not on filedocumented in this encounter"
--- OUTSIDE RECORDS SUMMARY | ~2019-09-30 | XMS | Encounter Summary ---
Demographics + + + | Address | [address] | | | [place] [address] | + + + | Home Phone [...] Team Providers + +------+ + | Care Ticketing Agent Name | Role | Phone | [...] Results, Imaging | | 2018 | | [facility] | POLICE LIEUTENANT | | | | | MEDICAL CLIN[facility] [address] | | | | | | [address] [facility] [place], | | | | | | [place] [address] | | | | | | [phone] | | | +--------+ + + + [...] 2019 | Visit | | [address] | | | | | | [place] [address] | | | | | | [phone] | | | | | | | | +--------+ + + + + | 10/30/ | Office | Primary Care | Erika Ernst, | | | 2019 | Visit | | DO [address] [place] | | | | | | [place] [address] | | | | | | [phone] | | | | | | | [...] [place] | | | | | | [address] | | | | | | [phone] | | | | | | | | +--------+ + + + + | 02/09/ | Office | Neurology | Dhara, | | | 2019 | Visit | | [address] | | | | | | [address] [place], | | | | | | [place] [address] | | | | | | [phone] | | | | | | | | +--------+ + + + + documented as of this encounter Visit Diagnoses Not on filedocumented in this encounter"
--- OUTSIDE RECORDS SUMMARY | ~2019-09-30 | XMS | Encounter Summary ---
Demographics + + + | Address | [address] | | | [place] [address] | + + + | Home Phone [...] Team Providers + +------+ + | Care Medicine Worker Name | Role | Phone | [...] | MEDICAL CLINIC [address] | [place] [address] | encounter (Primary | | | | [address] [place], | [phone] | Dx) | | | | [place] [address] | | | | | | [phone] | | | +--------+---------+ + + + [...] [place] | | | | | | [place] [address] | | | | | | [phone] | | | | | | | | +--------+ + + + + | 10/30/ | Office | Primary Care | Erika Ernst, | | | 2019 | Visit | | DO [address] [place] | | | | | | [place] [address] | | | | | | [phone] | | | | | | | [...] [place] | | | | | | [address] | | | | | | [phone] | | | | | | | | +--------+ + + + + | 02/09/ | Office | Neurology | Dhara, | | | 2019 | Visit | | [address] | | | | | | [address] [place], | | | | | | [place] [address] | | | | | | [phone] | | | | | | | | +--------+ + + + + documented as of this encounter Visit Diagnoses + + | Diagnosis | + + | Strain of left ankle, subsequent encounter - Primary | + + documented in this encounter
--- OUTSIDE RECORDS SUMMARY | ~2019-09-30 | XMS | Encounter Summary ---
Demographics + + + | Address | [address] | | | [place] [address] | + + + | Home Phone [...] Providers + +------+ + | Care Occupational Rehabilitation Aide Name | Role | Phone | + +------+ + PCP | Unavailable | + +------+ + Encounter Details +--------+ + + + + | Date | Type | Department | Care Team | Description | +--------+ + + + + | 04/26/ | [facility] | [facility] | Erika Ernst, | | | 2016 | Encounter | [facility] | DO [address] | | | | | MEDICAL CLINIC [address] | [place] [address] | | | | | [address] [place], | [phone] | | | | | [place] [address] | | | | | | [phone] | | | +--------+ + + + [...] | | | | | [place] [address] | | | | | | [phone] | | | | | | | | +--------+ + + + + | 10/30/ | Office | Primary Care | Eriak Ernst, | | | 2019 | Visit | | DO [address] [place] | | | | | | [place] [address] | | | | | | [phone] | | | | | | | [...] [place] | | | | | | [address] | | | | | | [phone] | | | | | | | | +--------+ + + + + | 02/09/ | Office | Neurology | Dhara, | | | 2020 | Visit | | [address] | | | | | [address] [place], | | | | | | [place] [address] | | | | | | [phone] | | | | | | | | +--------+ + + + + documented as of this encounter Visit Diagnoses Not on filedocumented in this encounter"
--- OUTSIDE RECORDS SUMMARY | ~2019-09-30 | XMS | Encounter Summary ---
Demographics + + + | Address | [address] | | | [place] [address] | + + + | Home Phone [...] Team Providers + +------+ + | Care Magazine Worker Name | Role | Phone | [...] | | | | [place], [place] | [address] | | | | | [address] | [phone] | | | | | [phone] | | | +--------+ + + + [...] | | | | | [place] [address] | | | | | | [phone] | | | | | | | | +--------+ + + + + | 10/30/ | Office | Primary Care | Erika Ernst, | | | 2019 | Visit | | DO [address] [place] | | | | | | [place] [address] | | | | | | [phone] | | | | | | | [...] [place] | | | | | | [address] | | | | | | [phone] | | | | | | | | +--------+ + + + + | 02/09/ | Office | Neurology | Dhara, | | 2019 | Visit | | [address] | | | | | | [address] [place], | | | | | | [place] [address] | | | | | | [phone] | | | | | | | [...]
--- OUTSIDE RECORDS SUMMARY | ~2019-09-30 | XMS | Encounter Summary ---
Demographics + + + | Address | [address] | | | [place] [address] | + + + | Home Phone [...] Team Providers + +------+ + | Care Mental Health Social Worker Name | Role [...] | | 2018 | | [facility] | DO [address] | | | | | [facility] | [facility] [address] | | | | [address] [place], | [phone] | | | | | [place] [address] | | | | | | [phone] | | | +--------+ + + + [...] | | | | | [place] [address] | | | | | | [phone] | | | | | | | | +--------+ + + + + | 10/30/ | Office | Primary Care | Erika Ernst, | | | 2019 | Visit | | DO [address] | | | | | | [place] [address] | | | | | | [phone] | | | | | | | [...] [place] | | | | | | [address] | | | | | | [phone] | | | | | | | | +--------+ + + + + | 02/09/ | Office | Neurology | Dhara, | | | 2019 | Visit | | DWAINE [address] [place], | | | | | | [place] [address] | | | | | | [phone] | | | | | | | | +--------+ + + + + documented as of this encounter Visit Diagnoses + + | Diagnosis | + + | Vitamin D deficiency Unspecified vitamin D deficiency | + + documented in this encounter"
--- OUTSIDE RECORDS SUMMARY | ~2019-09-30 | XMS | Encounter Summary ---
Demographics + + + | Address | [address] | | | [place] [address] | + + + | Home Phone [...] Providers + +------+ + | Care Supervisor [place] Name | Role | Phone | + [...] | | | | Spotting | [place] [address] | [place], [place] | | | | | between | Phone: | [address] | | | | | menses | [phone] | Phone: | | | | | | Fax: | [phone] | | | | | | [phone] | Fax: | | | | | | | [phone] | +--------+ + + + + + [...] irregular cycle | | | | [place] [address] | [address] | | | | | [phone] | [phone] | | | | | | | [...] with menses cycles. Is scheduled to see Circle Edger. Patient started cycles at 12 and were [...] bearing children as she is of Ashkenazi Adventist descent. Explained this sounds like endometriosis and [...] mouth. Once a week Cholecalciferol (VITAMIN D3) 52168 units TABS Take 1 tablet by mouth [...] facility-administered medications on file prior to visit. Butadiene Converter Utility Operator history: Menstrual history: Patient's last menstrual period was 05/18/2019. Control: condoms STD history: none Sexual history: Patient is sexuall active with Male. She has single partner/s. STD risk: very low risk of STD exposure. Testing desired: none ROS: General: negative Cardiovascular: no chest pain or dyspnea on exertion Respiratory: negative -Urinary: negative -Butadiene Converter Utility Operator: pelvic pain: moderate, abnormal bleeding. Psychiatric: negative [...] above. This documentation prepared by Dioni Amaya emergency medical tech. All aspects of this chart revie wed [...] | | | | | [place] [address] | | | | | | [phone] | | | | | | | | +--------+ + + + + | 10/30/ | Office | Primary Care | Erika Ernst, | | | 2019 | Visit | | DO [address] [place] | | | | | | [place] [address] | | | | | | [phone] | | | | | | | [...] [place] | | | | | | [address] | | | | | | [phone] | | | | | | | | +--------+ + + + + | 02/09/ | Office | Neurology | Dhara, | | | 2019 | Visit | | [address] | | | | [address] [place], | | | | | | [place] [address] | | | | | | [phone] | | | | | | | [...]
--- OUTSIDE RECORDS SUMMARY | ~2019-09-30 | XMS | Encounter Summary ---
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 [...] Heart attack Maternal Aunt [place] Social History Socioeconomic History Marital status: Single [...] and their vital signs recorded by my prosthetic assistant today, a s found in this chart note. Electronically signed by: Emily Mittal DPM 12/06/2018 at 9:59 Note: Part of this report was transcribed using voice recognition software. Every effort wa s made to ensure accuracy. However, inadvertent computerized slip presser errors may be pre sent. CC: Erika [...] | | | | | [place] [address] | | | | | | [phone] | | | | | | | | +--------+ + + + + | 10/30/ | Office | Primary Care | Erika Ernst, | | | 2019 | Visit | | DO [address] [place] | | | | | | [place] [address] | | | | | | [phone] | | | | | | | [...] [place] | | | | | | [address] | | | | | | [phone] | | | | | | | | +--------+ + + + + | 02/09/ | Office | Neurology | Dhara, | | | 2020 | Visit | | [address]WA[address] | | | | | | [address] [facility] [place], | | | | | | [place] [address] | | | | | | [phone] | | | | | | | [...]
--- OUTSIDE RECORDS SUMMARY | ~2019-09-30 | XMS | Encounter Summary ---
Demographics + + + | Address | [address] | | | [place] [address] | + + + | Home Phone [...] Team Providers + +------+ + | Care Department Store Door Greeter Name | Role | Phone | + [...] | | DR [address] [place], | [place], [place] | | | | | [place] [address] | [address] | | | | | [phone] | [phone] | | | | | | | [...] | | | | | [place] [address] | | | | | | [phone] | | | | | | | | +--------+ + + + + | 10/30/ | Office | Primary Care | Erika Ernst, | | | 2019 | Visit | | DO [address] [place] | | | | | | [place] [address] | | | | | | [phone] | | | | | | | [...] [place] | | | | | | [address] | | | | | | [phone] | | | | | | | | +--------+ + + + + | 02/09/ | Office | Neurology | Dhara, | | | 2020 | Visit | | [address]WA[address] | | | | | [address] [place], | | | | | | [place] [address] | | | | | | [phone] | | | | | | | | +--------+ + + + + documented as of this encounter Visit Diagnoses Not on filedocumented in this encounter"
--- OUTSIDE RECORDS SUMMARY | ~2019-09-30 | XMS | Encounter Summary ---
Demographics + + + | Address | [address] | | | [place] [address] | + + + | Home Phone [...] Team Providers + +------+ + | Care Liberal Arts Dean Name | Role | Phone | [...] 2018 | Encounter | [facility] [address] | | | | | [address] [place] | [place], [place] | | | | | [place], [place] | [address] | | | | | [address] | [phone] | | | | | [phone] | | | +--------+ + + + [...] | 03/19/20 | | | (VITAMIN D3) 99602 | mouth Once a week | tablet [...] | | | | | | [place] [address] | | | | | | [phone] | | | | | | | | +--------+ + + + + | 10/30/ | Office | Primary Care | Erika Ernst, | | | 2019 | Visit | | DO [address] [place] | | | | | | [place] [address] | | | | | | [phone] | | | | | | | [...] [place] | | | | | | [address] | | | | | | [phone] | | | | | | | | +--------+ + + + + | 02/09/ | Office | Neurology | Dhara, | | | 2019 | Visit | | [address]WA[address] | | | | | [address] [place], | | | | | | [place] [address] | | | | | | [phone] | | | | | | | | +--------+ + + + + documented as of this encounter Visit Diagnoses Not on filedocumented in this encounter"
--- OUTSIDE RECORDS SUMMARY | ~2019-09-30 | XMS | Encounter Summary ---
Demographics + + + | Address | [address] | | | [place] [address] | + + + | Home Phone [...] Team Providers + +------+ + | Care Sodder Name | Role | Phone | + [...] | 2019 | | [facility] | RESIDENT CARE ASSISTANT [address] | hand, initial | | | | CENTER [address] | [place], [place] | encounter (Primary | | | | [place] | [address] | Dx) | | | | [address] | | | | | | [phone] | | | +--------+ + + + [...] cannot be sent through Care Everywhere.Hand Contusion ([place]an)documented in this encounter Medications at Time of [...] | 04/12/20 | | | (VITAMIN D3) 32084 | mouth Once a week | tablet [...] | | | | | [place] [address] | | | | | | [phone] | | | | | | | | +--------+ + + + + | 10/30/ | Office | Primary Care | Erika Ernst, | | | 2019 | Visit | | DO [address] [place] | | | | | | [place] [address] | | | | | | [phone] | | | | | | | [...] [place] | | | | | | [address] | | | | | | [phone] | | | | | | | | +--------+ + + + + | 02/09/ | Office | Neurology | Dhara, | | | 2019 | Visit | | [address]WA[address] | | | | | [address] [place], | | | | | | [place] [address] | | | | | | [phone] | | | | | | | [...]
--- OUTSIDE RECORDS SUMMARY | ~2019-09-30 | XMS | Encounter Summary ---
Demographics + + + | Address | [address] | | | [place] [address] | + + + | Home Phone [...] Team Providers + +------+ + | Care Offset Lithographic Press Setter Name | Role | Phone | [...] media | | 2019 | Visit | [facility] | VP DIRECTOR OF CREATIVE STRATEGY [address] | with effusion | | | | [facility] | [place] [address] | | | | | [address] [place], | [phone] | | | | | [place] [address] | | | | | | [phone] | | | +--------+---------+ + + + [...] | | | | | [place] [address] | | | | | | [phone] | | | | | | | | +--------+ + + + + | 10/30/ | Office | Primary Care | Erika Ernst, | | | 2019 | Visit | | DO [address] [place] | | | | | | [place] [address] | | | | | | [phone] | | | | | | | [...] [place] | | | | | | [address] | | | | | | [phone] | | | | | | | | +--------+ + + + + | 02/09/ | Office | Neurology | Dhara, | | | 2019 | Visit | | [address]WA[address] | | | | | | [address] [place], | | | | | | [place] [address] | | | | | | [phone] | | | | | | | [...]
--- OUTSIDE RECORDS SUMMARY | ~2019-09-30 | XMS | Encounter Summary ---
Demographics + + + | Address | [address] | | | [place] [address] | + + + | Home Phone [...] Providers + +------+ + | Care Ux Designer Name | Role | Phone | [...] | | | [place], [place] | [address] | | | | | [address] | | | | | | [phone] | | | +--------+ + + + [...] | | | | | [place] [address] | | | | | | [phone] | | | | | | | | +--------+ + + + + | 10/30/ | Office | Primary Care | Erika Ernst, | | | 2019 | Visit | | DO [address] | | | | | | [place] [address] | | | | | | [phone] | | | | | | | [...] [place] | | | | | | [address] | | | | | | [phone] | | | | | | | | +--------+ + + + + | 02/09/ | Office | Neurology | Dhara, | | | 2019 | Visit | | [address] | | | | | [address] [place], | | | | | | [place] [address] | | | | | | [phone] | | | | | | | | +--------+ + + + + documented as of this encounter Visit Diagnoses Not on filedocumented in this encounter"
--- OUTSIDE RECORDS SUMMARY | ~2019-09-30 | XMS | Encounter Summary ---
Demographics + + + | Address | [address] | | | [place] [address] | + + + | Home Phone [...] Team Providers + +------+ + | Care Vascular Radiologist Name | Role | Phone | + [...] | [address] | | | | | [address] | | | | | | [phone] | | | +--------+ + + + [...] | | | | | [place] [address] | | | | | | [phone] | | | | | | | | +--------+ + + + + | 10/30/ | Office | Primary Care | Erika Ernst, | | | 2019 | Visit | | DO [address] [place] | | | | | | [place] [address] | | | | | | [phone] | | | | | | | [...] [place] | | | | | | [address] | | | | | | [phone] | | | | | | | | +--------+ + + + + | 02/09/ | Office | Neurology | Dhara, | | | 2020 | Visit | | [address] | | | | [address] [place], | | | | | | [place] [address] | | | | | | [phone] | | | | | | | | +--------+ + + + + documented as of this encounter Visit Diagnoses Not on filedocumented in this encounter"
--- OUTSIDE RECORDS SUMMARY | ~2019-09-30 | XMS | Encounter Summary ---
Demographics + + + | Address | [address] | | | [place] [address] | + + + | Home Phone [...] Providers + +------+ + | Care Assistant Coach Name | Role | Phone | [...] [address] | | | | | [place] [address] | | | | | | [phone] | | | +--------+ + + + [...] | | | | | [place] [address] | | | | | | [phone] | | | | | | | | +--------+ + + + + | 10/30/ | Office | Primary Care | Erika Ernst, | | | 2019 | Visit | | DO [address] [place] | | | | | | [place] [address] | | | | | | [phone] | | | | | | | [...] [place] | | | | | | [address] | | | | | | [phone] | | | | | | | | +--------+ + + + + | 02/09/ | Office | Neurology | Dhara, | | | 2020 | Visit | | [address] | | | | [address] [place], | | | | | | [place] [address] | | | | | | [phone] | | | | | | | | +--------+ + + + + documented as of this encounter Visit Diagnoses Not on filedocumented in this encounter"
--- OUTSIDE RECORDS SUMMARY | ~2019-09-30 | XMS | Encounter Summary ---
Demographics + + + | Address | [address] | | | [place] [address] | + + + | Home Phone [...] Providers + +------+ + | Care Campus Chaplain Name | Role | Phone | + [...] | Encounter | [facility] | PRE K LEAD TEACHER [address] [facility] | | | | | [address] [place] | [place] [address] | | | | | [place], [place] | [phone] | | | | | [address] | | | | | | [phone] | | | +--------+ + + + [...] | 19 | 9 | | [facility]ACE [id number]) | | | | | | | [...] | | | | | [place] [address] | | | | | | [phone] | | | | | | | | +--------+ + + + + | 10/30/ | Office | Primary Care | Erika rEnst, | | | 2019 | Visit | | DO [address] [place] | | | | | | [place] [address] | | | | | | [phone] | | | | | | | [...] [place] | | | | | | [address] | | | | | | [phone] | | | | | | | | +--------+ + + + + | 02/09/ | Office | Neurology | Dhara, | | | 2019 | Visit | | [address] | | | | | [address] [place], | | | | | | [place] [address] | | | | | | [phone] | | | | | | | [...]
--- OUTSIDE RECORDS SUMMARY | ~2019-09-30 | XMS | Encounter Summary ---
Demographics + + + | Address | [address] | | | [place] [address] | + + + | Home Phone [...] Team Providers + +------+ + | Care Admitting Office Escort Name | Role | Phone | + [...] Telephone | [place] [facility] | Travis Malone, BINDING NICKER | Other (wrist pain ) | | 2019 | | [facility] | [address] [place] | | | | | [address] [place] [address] | [place], [place] | | | | | [place], [place] | [address] | | | | | [address] | [phone] | | | | | [phone] | | | +--------+ + + + [...] | | | | | [place] [address] | | | | | | [phone] | | | | | | | | +--------+ + + + + | 10/30/ | Office | Primary Care | Erika Ernst, | | | 2019 | Visit | | DO [address] [place] | | | | | | [place] [address] | | | | | | [phone] | | | | | | | [...] [place] | | | | | | [address] | | | | | | [phone] | | | | | | | | +--------+ + + + + | 02/09/ | Office | Neurology | Dhara, | | | 2020 | Visit | | [address] | | | | [address] [place], | | | | | | [place] [address] | | | | | | [phone] | | | | | | | | +--------+ + + + + documented as of this encounter Visit Diagnoses Not on filedocumented in this encounter"
--- OUTSIDE RECORDS SUMMARY | ~2019-09-30 | XMS | Encounter Summary ---
Demographics + + + | Address | [address] | | | [place] [address] | + + + | Home Phone [...] Providers + +------+ + | Care Cylinder Sander Operator Name | Role | Phone | [...] | [facility] | [place] [address] | (Primary Dx) | | | | [address] [place], | [phone] | | | | | [place] [address] | | | | | | [phone] | | | +--------+ + + + [...] | | | | | [place] [address] | | | | | | [phone] | | | | | | | | +--------+ + + + + | 10/30/ | Office | Primary Care | Erika Ernst, | | | 2019 | Visit | | DO [address] [place] | | | | | | [place] [address] | | | | | | [phone] | | | | | | | [...] [place] | | | | | | [address] | | | | | | [phone] | | | | | | | | +--------+ + + + + | 02/09/ | Office | Neurology | Dhara, | | | 2019 | Visit | | [address] | | | | | | [address] [place], | | | | | | [place] [address] | | | | | | [phone] | | | | | | | [...] | [address] | [place] [address] | [phone] | | [facility] | | | | | [facility] | | | | + [...] | | [place] | | | | [place] | | | | | | [address] [facility] | | | | | | [place] [address] | | | | | | CLIA #[id number] | | | | + + + [...] + + + | REFERENCE LAB | [address] [facility] | [place], [place] | | | [facility] - | | [address] | | | [place] | | | | + + + + + documented in this encounter Visit Diagnoses + + | Diagnosis | + + | Subclinical hypothyroidism - Primary Other specified acquired hypothyroidism | + + documented in this encounter"
--- OUTSIDE RECORDS SUMMARY | ~2019-09-30 | XMS | Encounter Summary ---
Demographics + + + | Address | [address] | | | [place] [address] | + + + | Home Phone [...] Providers + +------+ + | Care Automatic Gluing Machine Operator Name | Role | Phone [...] CLINIC [address] | [place] [address] | | | | | [address] [facility], | [phone] | | | | | [place] [address] | | | | | | [phone] | | | +--------+ + + + [...] | | | | | [place] [address] | | | | | | [phone] | | | | | | | | +--------+ + + + + | 10/30/ | Office | Primary Care | Erika Ernst, | | | 2019 | Visit | | DO [address] | | | | | | [place] [address] | | | | | | [phone] | | | | | | | [...] [place] | | | | | | [address] | | | | | | [phone] | | | | | | | | +--------+ + + + + | 02/09/ | Office | Neurology | Dhara, | | | 2019 | Visit | | [address] | | | | | | [address] [place], | | | | | | [place] [address] | | | | | | [phone] | | | | | | | | +--------+ + + + + documented as of this encounter Visit Diagnoses Not on filedocumented in this encounter"
--- OUTSIDE RECORDS SUMMARY | ~2019-09-30 | XMS | Encounter Summary ---
Demographics + + + | Address | [address] | | | [place] [address] | + + + | Home Phone [...] Team Providers + +------+ + | Care Pharmacologist Name | Role | Phone | + [...] [place] | | | | | | [address] | | | | | | [phone] | | | +--------+ + + + [...] | | | | | [place] [address] | | | | | | [phone] | | | | | | | | +--------+ + + + + | 10/30/ | Office | Primary Care | Erika Ernst, | | | 2019 | Visit | | DO [address] [place] | | | | | | [place] [address] | | | | | | [phone] | | | | | | | [...] [place] | | | | | | [address] | | | | | | [phone] | | | | | | | | +--------+ + + + + | 02/09/ | Office | Neurology | Dhara, | | | 2019 | Visit | | [address] | | | | | [address] [place], | | | | | | [place] [address] | | | | | | [phone] | | | | | | | | +--------+ + + + + documented as of this encounter Visit Diagnoses + + | Diagnosis | + + | Radial styloid tenosynovitis - Primary | + + | Right wrist pain Pain in joint, forearm | + + documented in this encounter"
--- OUTSIDE RECORDS SUMMARY | ~2019-09-30 | XMS | Encounter Summary ---
Demographics + + + | Address | [address] | | | [place] [address] | + + + | Home Phone [...] Team Providers + +------+ + | Care Performance Test Engineer Name | Role | Phone [...] | [facility] | [place] [address] | | | | | [address] [place], | [phone] | | | | | [place] [address] | | | | | | [phone] | | | +--------+--------+ + + + [...] | | | | | [place] [address] | | | | | | [phone] | | | | | | | | +--------+ + + + + | 10/30/ | Office | Primary Care | Erika Ernst, | | | 2019 | Visit | | DO [address] [place] | | | | | | [place] [address] | | | | | | [phone] | | | | | | | [...] [place] | | | | | | [address] | | | | | | [phone] | | | | | | | | +--------+ + + + + | 02/09/ | Office | Neurology | Dhara, | | | 2019 | Visit | | [address] | | | | | | [address] [place], | | | | | | [place] [address] | | | | | | [phone] | | | | | | | | +--------+ + + + + documented as of this encounter Visit Diagnoses + + | Diagnosis | + + | Asthma, unspecified asthma severity, unspecified whether complicated, unspecified | | whether persistent - Primary | + + documented in this encounter"
--- OUTSIDE RECORDS SUMMARY | ~2019-09-30 | XMS | Encounter Summary ---
Demographics + + + | Address | [address] | | | [place] [address] | + + + | Home Phone [...] Providers + +------+ + | Care Senior Accounting Manager Name | Role | Phone | + +------+ + PCP | Unavailable | + +------+ + Encounter Details +--------+ + + + + | Date | Type | Department | Care Team | Description | +--------+ + + + + | 05/07/ | [facility] | Spenser Roberts NP | | | 2015 | Encounter | [facility] | [address], | | | | | [facility] [address] | [place] [address] | | | | | [address]TH [facility], | [phone] | | | | | [place] [address] | | | | | | [phone] | | | +--------+ + + + [...] | | | | | [place] [address] | | | | | | [phone] | | | | | | | | +--------+ + + + + | 10/30/ | Office | Primary Care | Erika Ernst, | | | 2019 | Visit | | DO [address] [place] | | | | | | [place] [address] | | | | | | [phone] | | | | | | | [...] [place] | | | | | | [address] | | | | | | [phone] | | | | | | | | +--------+ + + + + | 02/09/ | Office | Neurology | Dhara, | | | 2020 | Visit | | [address] | | | | | | [address] [place], | | | | | | [place] [address] | | | | | | [phone] | | | | | | | | +--------+ + + + + documented as of this encounter Visit Diagnoses Not on filedocumented in this encounter"
--- OUTSIDE RECORDS SUMMARY | ~2019-09-30 | XMS | Encounter Summary ---
Demographics + + + | Address | [address] | | | [place] [address] | + + + | Home Phone [...] | [place] | [place] [address] | | | | | [address] | [phone] | | | | | [phone] | | | +--------+ + + + [...] | | | | | [place] [address] | | | | | | [phone] | | | | | | | | +--------+ + + + + | 10/30/ | Office | Primary Care | Erika Ernst, | | | 2019 | Visit | | DO [address] [place] | | | | | | [place] [address] | | | | | | [phone] | | | | | | | [...] [place] | | | | | | [address] | | | | | | [phone] | | | | | | | | +--------+ + + + + | 02/09/ | Office | Neurology | Dhara, | | | 2019 | Visit | | [address] | | | | | | [address] [place], | | | | | | [place] [address] | | | | | | [phone] | | | | | | | | +--------+ + + + + documented as of this encounter Visit Diagnoses + + | Diagnosis | + + | Post-op pain - Primary Other acute postoperative pain | + + documented in this encounter"
--- OUTSIDE RECORDS SUMMARY | ~2019-09-30 | XMS | Encounter Summary ---
Demographics + + + | Address | [address] | | | [place] [address] | + + + | Home Phone [...] Providers + +------+ + | Care Yard Supervisor Name | Role | Phone [...] | [place], [place] | [place] [address] | | | | | [address] | [phone] | | | | | [phone] | | | +--------+ + + + [...] | | | | | [place] [address] | | | | | | [phone] | | | | | | | | +--------+ + + + + | 10/30/ | Office | Primary Care | Erika Ernst, | | | 2019 | Visit | | DO [address] [place] | | | | | | [place] [address] | | | | | | [phone] | | | | | | | [...] [place] | | | | | | [address] | | | | | | [phone] | | | | | | | | +--------+ + + + + | 02/09/ | Office | Neurology | Dhara, | | | 2019 | Visit | | [address] | | | | | [address] [place], | | | | | | [place] [address] | | | | | | [phone] | | | | | | | | +--------+ + + + + documented as of this encounter Visit Diagnoses + + | Diagnosis | + + | Torn tendon - Primary Unspecified site of sprain and strain | + + documented in this encounter"
--- OUTSIDE RECORDS SUMMARY | ~2019-09-30 | XMS | Encounter Summary ---
Demographics + + + | Address | [address] | | | [place] [address] | + + + | Home Phone [...] Providers + +------+ + | Care Assistant Technician Name | Role | Phone | [...] | [facility] [address] | [place] [address] | | | | | [address] [place], | [phone] | | | | | [place] [address] | | | | | | [phone] | | | +--------+ + + + [...] | | | | | [place] [address] | | | | | | [phone] | | | | | | | | +--------+ + + + + | 10/30/ | Office | Primary Care | Erika Ernst, | | | 2019 | Visit | | DO [address] | | | | | | [place] [address] | | | | | | [phone] | | | | | | | [...] [place] | | | | | | [address] | | | | | | [phone] | | | | | | | | +--------+ + + + + | 02/09/ | Office | Neurology | Dhara, | | | 2019 | Visit | | [address] | | | [address] [place], | | | | | | [place] [address] | | | | | | [phone] | | | | | | | | +--------+ + + + + documented as of this encounter Visit Diagnoses + + | Diagnosis | + + | Vitamin D deficiency - Primary Unspecified vitamin D deficiency | + + documented in this encounter"
--- OUTSIDE RECORDS SUMMARY | ~2019-09-30 | XMS | Encounter Summary ---
Demographics + + + | Address | [address] | | | [place] [address] | + + + | Home Phone [...] Providers + +------+ + | Care Continuous Pickling Line Pickler Helper Name | Role | Phone | [...] | [address] [place] | [place] [address] | | | | | [place] | [phone] | | | | | [address] | | | | | | [phone] | | | +--------+ + + + [...] | | | | | [place] [address] | | | | | | [phone] | | | | | | | | +--------+ + + + + | 10/30/ | Office | Primary Care | Erika Ernst, | | | 2019 | Visit | | DO [address] | | | | | | [place] [address] | | | | | | [phone] | | | | | | | [...] [place] | | | | | | [address] | | | | | | [phone] | | | | | | | | +--------+ + + + + | 02/09/ | Office | Neurology | Dhara, | | | 2020 | Visit | | [address] | | | | | | [address] [place], | | | | | | [place] [address] | | | | | | [phone] | | | | | | | | +--------+ + + + + documented as of this encounter Visit Diagnoses Not on filedocumented in this encounter"
--- OUTSIDE RECORDS SUMMARY | ~2019-09-30 | XMS | Encounter Summary ---
Demographics + + + | Address | [address] | | | [place] [address] | + + + | Home Phone [...] Team Providers + +------+ + | Care Pipefitter Welder Name | Role | Phone | + +------+ + PCP | Unavailable | + +------+ + Encounter Details +--------+ + + + + | Date | Type | Department | Care Team | Description | +--------+ + + + + | 04/26/ | [facility] | Spenser Roberts NP | | | 2015 | Encounter | [facility] | [address], | | | | | [facility] [address] | [place] [address] | | | | | [facility], | [phone] | | | | | [place] [address] | | | | | | [phone] | | | +--------+ + + + [...] | | | | | [place] [address] | | | | | | [phone] | | | | | | | | +--------+ + + + + | 10/30/ | Office | Primary Care | Erika Ernst, | | | 2019 | Visit | | DO [address] [place] | | | | | | [place] [address] | | | | | | [phone] | | | | | | | [...] [place] | | | | | | [address] | | | | | | [phone] | | | | | | | | +--------+ + + + + | 02/09/ | Office | Neurology | Dhara, | | | 2020 | Visit | | [address] | | | | | [address] [place], | | | | | | [place] [address] | | | | | | [phone] | | | | | | | | +--------+ + + + + documented as of this encounter Visit Diagnoses Not on filedocumented in this encounter"
--- OUTSIDE RECORDS SUMMARY | ~2019-09-30 | XMS | Encounter Summary ---
Demographics + + + | Address | [address] | | | [place] [address] | + + + | Home Phone [...] Providers + +------+ + | Care Java Web Architect Name | Role | Phone | [...] | MED[facility] [address] | [place] [address] | (Primary Dx); | | | | [address] [place], | [phone] | Environmental | | | | [place] [address] | | allergies; Vitamin D | | | | [phone] | | deficiency | +--------+---------+ + + [...] day 6 tablet 0 Cholecalciferol (VITAMIN D3) 65646 units TABS Take 1 tablet by mouth [...] | | | | | [place] [address] | | | | | | [phone] | | | | | | | | +--------+ + + + + | 10/30/ | Office | Primary Care | Erika Ernst, | | | 2019 | Visit | | DO [address] [place] | | | | | | [place] [address] | | | | | | [phone] | | | | | | | | +--------+ + + + + | 11/07/ | Appointment | Nutrition | Janel Webster | | | 2019 | | | [place] | | +--------+ + + + + | 11/28/ | Office | Otolaryngology | Anthony Alvarado MD | | 2019 | Visit | | [address] | | | | | | [place] | | | | | | [address] | | | | | | [phone] | | | | | | | | +--------+ + + + + | 05/11/ | Office | Neurology | Dhara, | | | 2019 | Visit | | Cody RESEARCH CHIEF ENGINEER [address] | | | | | | [address] [facility] [place], | | | | | | [place] [address] | | | | | | [phone] | | | | | | | [...]
--- OUTSIDE RECORDS SUMMARY | ~2019-09-30 | XMS | Encounter Summary ---
Demographics + + + | Address | [address] | | | [place] [address] | + + + | Home Phone [...] Providers + +------+ + | Care Clinical Data Analyst Name | Role | Phone | + +------+ + PCP | Unavailable | + +------+ + Encounter Details +--------+ + + + + | Date | Type | Department | Care Team | Description | +--------+ + + + + | 03/23/ | [facility] | [place] [facility] | Erika Ernst, | | | 2016 | Encounter | [facility] | DO [address] | | | | | MEDICAL CL[facility] [address] | [place] [address] | | | | | [address] [place], | [phone] | | | | | [place] [address] | | | | | | [phone] | | | +--------+ + + + [...] | | | | | [place] [address] | | | | | | [phone] | | | | | | | | +--------+ + + + + | 10/30/ | Office | Primary Care | Erika Ernst, | | | 2019 | Visit | | DO [address] [place] | | | | | | [place] [address] | | | | | | [phone] | | | | | | | [...] [place] | | | | | | [address] | | | | | | [phone] | | | | | | | | +--------+ + + + + | 02/09/ | Office | Neurology | Dhara, | | | 2019 | Visit | | [address] | | | | | | [address] [place], | | | | | | [place] [address] | | | | | | [phone] | | | | | | | | +--------+ + + + + documented as of this encounter Visit Diagnoses Not on filedocumented in this encounter"
--- OUTSIDE RECORDS SUMMARY | ~2019-09-30 | XMS | Encounter Summary ---
Demographics + + + | Address | [address] | | | [place] [address] | + + + | Home Phone [...] Team Providers + +------+ + | Care Hose Builder Name | Role | Phone | [...] [place] | | | | | | [address] | | | | | | [phone] | | | +--------+ + + + [...] | | | | | [place] [address] | | | | | | [phone] | | | | | | | | +--------+ + + + + | 10/30/ | Office | Primary Care | Erika Ernst, | | | 2019 | Visit | | DO [address] [place] | | | | | | [place] [address] | | | | | | [phone] | | | | | | | [...] [place] | | | | | | [address] | | | | | | [phone] | | | | | | | | +--------+ + + + + | 02/09/ | Office | Neurology | Dhara, | | | 2019 | Visit | | [address] | | | | | | [address] [place], | | | | | | [place] [address] | | | | | | [phone] | | | | | | | | +--------+ + + + + documented as of this encounter Visit Diagnoses Not on filedocumented in this encounter"
--- OUTSIDE RECORDS SUMMARY | ~2019-09-30 | XMS | Encounter Summary ---
Demographics + + + | Address | [address] | | | [place] [address] | + + + | Home Phone [...] Providers + +------+ + | Care Medical Nurse Name | Role | Phone | [...] [address] | | | | | [place] [address] | | | | | | [phone] | | | +--------+ + + + [...] | | | | | [place] [address] | | | | | | [phone] | | | | | | | | +--------+ + + + + | 10/30/ | Office | Primary Care | Erika Ernst, | | | 2019 | Visit | | DO [address] [place] | | | | | | [place] [address] | | | | | | [phone] | | | | | | | [...] [place] | | | | | | [address] | | | | | | [phone] | | | | | | | | +--------+ + + + + | 02/09/ | Office | Neurology | Dhara, | | | 2020 | Visit | | [address] | | | | | | [address] [place], | | | | | | [place] [address] | | | | | | [phone] | | | | | | | | +--------+ + + + + documented as of this encounter Visit Diagnoses Not on filedocumented in this encounter"
--- OUTSIDE RECORDS SUMMARY | ~2019-09-30 | XMS | Encounter Summary ---
Demographics + + + | Address | [address] | | | [place] [address] | + + + | Home Phone [...] Providers + +------+ + | Care Geophysical Data Technician Name | Role | Phone | + +------+ + | Erika Ernst DO | PCP | | + +------+ + Encounter Details +--------+ + + + + | Date | Type | Department | Care Team | Description | +--------+ + + + + | 01/07/ | Abstract | [place] [facility] | Erika Ernst, | | | 2018 | | [address] | | | | | MEDICAL CL[facility] [address] | [place] [address] | | | | | 4TH [facility] [place], | [phone] | | | | | [place] [address] | | | | | | [phone] | | | +--------+ + + + [...] | | | | | [place] [address] | | | | | | [phone] | | | | | | | | +--------+ + + + + | 10/30/ | Office | Primary Care | Erika Ernst, | | | 2019 | Visit | | DO [address] | | | | | | [place] [address] | | | | | | [phone] | | | | | | | [...] [place] | | | | | | [address] | | | | | | [phone] | | | | | | | | +--------+ + + + + | 02/09/ | Office | Neurology | Dhara, | | | 2019 | Visit | | [address] | | | | | | [address] [place], | | | | | | [place] [address] | | | | | | [phone] | | | | | | | | +--------+ + + + + documented as of this encounter Visit Diagnoses Not on filedocumented in this encounter"
--- OUTSIDE RECORDS SUMMARY | ~2019-09-30 | XMS | Encounter Summary ---
Demographics + + + | Address | [address] | | | [place] [address] | + + + | Home Phone [...] Team Providers + +------+ + | Care Payroll Accounting Manager Name | Role | Phone [...] 09/17/ | Telephone | [place] [facility] | Eirka Ernst, | LABS | | 2019 | | [facility] | DO [address] | | | | | MEDICAL CLIN[facility] [address] | [place] [address] | | | | | [address] [place], | [phone] | | | | | [place] [address] | | | | | | [phone] | | | +--------+ + + + [...] | | | | | [place] [address] | | | | | | [phone] | | | | | | | | +--------+ + + + + | 10/30/ | Office | Primary Care | Erika Ernst, | | | 2019 | Visit | | DO [address] | | | | | | [place] [address] | | | | | | [phone] | | | | | | | [...] [place] | | | | | | [address] | | | | | | [phone] | | | | | | | | +--------+ + + + + | 02/09/ | Office | Neurology | Dhara, | | | 2020 | Visit | | [address] | | | | | | [address] [place], | | | | | | [place] [address] | | | | | | [phone] | | | | | | | | +--------+ + + + + documented as of this encounter Visit Diagnoses Not on filedocumented in this encounter"
--- OUTSIDE RECORDS SUMMARY | ~2019-09-30 | XMS | Encounter Summary ---
Demographics + + + | Address | [address] | | | [place] [address] | + + + | Home Phone [...] [facility] | DO [address] [place] | | | | | MEDICAL [facility] [address] | [place] [address] | | | | | [address] [place], | [phone] | | | | | [place] [address] | | | | | | [phone] | | | +--------+ + + + [...] | | | | | [place] [address] | | | | | | [phone] | | | | | | | | +--------+ + + + + | 10/30/ | Office | Primary Care | Erika Ernst, | | | 2019 | Visit | | DO [address] [place] | | | | | | [place] [address] | | | | | | [phone] | | | | | | | [...] [place] | | | | | | [address] | | | | | | [phone] | | | | | | | | +--------+ + + + + | 02/09/ | Office | Neurology | Dhara, | | | 2019 | Visit | | [address] | | | | | | [address] [place], | | | | | | [place] [address] | | | | | | [phone] | | | | | | | | +--------+ + + + + documented as of this encounter Visit Diagnoses Not on filedocumented in this encounter"
--- OUTSIDE RECORDS SUMMARY | ~2019-09-30 | XMS | Encounter Summary ---
Demographics + + + | Address | [address] | | | [place] [address] | + + + | Home Phone [...] Team Providers + +------+ + | Care Rangeland Management Specialist Name | Role | Phone [...] | | | | [place], [place] | [address] | | | | | [address] | [phone] | | | | | [phone] | | | +--------+ + + + [...] | 03/19/20 | | | (VITAMIN D3) 57963 | mouth Once a week | tablet [...] | | | | | [place] [address] | | | | | | [phone] | | | | | | | | +--------+ + + + + | 10/30/ | Office | Primary Care | Erika Ernst, | | | 2019 | Visit | | DO [address] [place] | | | | | | [place] [address] | | | | | | [phone] | | | | | | | [...] [place] | | | | | | [address] | | | | | | [phone] | | | | | | | | +--------+ + + + + | 02/09/ | Office | Neurology | Dhara, | | | 2019 | Visit | | [address] | | | | | | [address] [place], | | | | | | [place] [address] | | | | | | [phone] | | | | | | | | +--------+ + + + + documented as of this encounter Visit Diagnoses Not on filedocumented in this encounter"
--- OUTSIDE RECORDS SUMMARY | ~2019-09-30 | XMS | Encounter Summary ---
Demographics + + + | Address | [address] | | | [place] [address] | + + + | Home Phone [...] Team Providers + +------+ + | Care Cam Specialist Name | Role | Phone | [...] | | | | | | NC REPR | | | | | | | FOREARM | | | | | | | TEND/MUSC,EX | | | | | | | TEN,PRIM,EA | | | | | | | NC REPR | | | | | | | FOREARM | | | | | | | TEND/MUSC,EX | | | | | | | TEN,SECOND | | | | | | | NC REPR | | | | | | [...] Event | HOSPITAL [facility] OP | CLIENT EXECUTIVE [address] | | | | | [address] [place] | [place] [address] | | | | | [place], [place] | [phone] | | | | | [address] | | | | | | [phone] | | | +--------+ + + + + Anesthesia Record + + + + + | Procedure Name | Responsible | Anesthesia Start | Anesthesia Stop Time | | | Anesthesiologist | Time | | + + + + + | AUR[facility]A Peralta Tendon | Maxi Monique, | 03/20/19 09 | 03/20/19 1048 | | (Right Arm Lower) | CLIENT EXECUTIVE | | | + + + + [...] +----+---+ + + | | 0 | [place] | | | | 9 | 43-degrees [...] 1220 by | | eral | Antecubital; [id number] | Elaine Phelan RN | Anastasia Ceron [...] | | Type: endotracheal; Removal Date: | CLIENT EXECUTIVE | CLIENT EXECUTIVE | | | 03/20/19; Removal Time: 1043 [...] | | | | | [place] [address] | | | | | | [phone] | | | | | | | | +--------+ + + + + | 10/30/ | Office | Primary Care | Erika Ernst, | | | 2019 | Visit | | DO [address] | | | | | | [place] [address] | | | | | | [phone] | | | | | | | [...] [place] | | | | | | [address] | | | | | | [phone] | | | | | | | | +--------+ + + + + | 02/09/ | Office | Neurology | Dhara, | | | 2020 | Visit | | Cody MANAGER FIELD SALES [address] | | | | | | [address] [place], | | | | | | [place] [address] | | | | | | [phone] | | | | | | | [...]
--- OUTSIDE RECORDS SUMMARY | ~2019-09-30 | XMS | Encounter Summary ---
Demographics + + + | Address | [address] | | | [place] [address] | + + + | Home Phone [...] Providers + +------+ + | Care Crop Consultant Name | Role | Phone | [...] [place] | | | | | | [address] | | | | | | [phone] | | | +--------+ + + + [...] | | | | | [place] [address] | | | | | | [phone] | | | | | | | | +--------+ + + + + | 10/30/ | Office | Primary Care | Erika Ernst, | | | 2019 | Visit | | DO [address] | | | | | | [place] [address] | | | | | | [phone] | | | | | | | [...] [place] | | | | | | [address] | | | | | | [phone] | | | | | | | | +--------+ + + + + | 02/09/ | Office | Neurology | Dhara, | | | 2019 | Visit | | [address] | | | | | | [address] [place], | | | | | | [place] [address] | | | | | | [phone] | | | | | | | | +--------+ + + + + documented as of this encounter Visit Diagnoses Not on filedocumented in this encounter"
--- OUTSIDE RECORDS SUMMARY | ~2019-09-30 | XMS | Encounter Summary ---
Demographics + + + | Address | [address] | | | [place] [address] | + + + | Home Phone [...] Team Providers + +------+ + | Care Prepared Foods Supervisor Name | Role | Phone | + +------+ + PCP | Unavailable | + +------+ + Encounter Details +--------+ + + + + | Date | Type | Department | Care Team | Description | +--------+ + + + + | 01/17/ | [facility] | Julio Calderon | | | 2012 | Encounter | [facility] | MD [address] | | | | | C[address] | [place], | | | | | [address] [place] | [place] [address] | | | | | [address] | [phone] | | | | | [phone] | | | +--------+ + + + [...] | | | | | [place] [address] | | | | | | [phone] | | | | | | | | +--------+ + + + + | 10/30/ | Office | Primary Care | Erika Ernst, | | | 2019 | Visit | | DO [address] [place] | | | | | | [place] [address] | | | | | | [phone] | | | | | | | [...] [place] | | | | | | [address] | | | | | | [phone] | | | | | | | | +--------+ + + + + | 02/09/ | Office | Neurology | Dhara, | | | 2020 | Visit | | [address] | | | | | [address] [place], | | | | | | [place] [address] | | | | | | [phone] | | | | | | | | +--------+ + + + + documented as of this encounter Visit Diagnoses Not on filedocumented in this encounter"
--- OUTSIDE RECORDS SUMMARY | ~2019-09-30 | XMS | Encounter Summary ---
Demographics + + + | Address | [address] | | | [place] [address] | + + + | Home Phone [...] + +------+ + | Care Front Desk Associate Name | Role | Phone | [...] [place] | | | | | | [address] | | | | | | [phone] | | | +--------+ + + + [...] | | | | | [place] [address] | | | | | | [phone] | | | | | | | | +--------+ + + + + | 10/30/ | Office | Primary Care | Erika Ernst, | | | 2019 | Visit | | DO [address] | | | | | | [place] [address] | | | | | | [phone] | | | | | | | [...] [place] | | | | | | [address] | | | | | | [phone] | | | | | | | | +--------+ + + + + | 02/09/ | Office | Neurology | Dhara, | | | 2019 | Visit | | [address] | | | | | | [address] [place], | | | | | | [place] [address] | | | | | | [phone] | | | | | | | | +--------+ + + + + documented as of this encounter Visit Diagnoses Not on filedocumented in this encounter"
--- OUTSIDE RECORDS SUMMARY | ~2019-09-30 | XMS | Encounter Summary ---
Demographics + + + | Address | [address] | | | [place] [address] | + + + | Home Phone [...] + +------+ + | Care Head Of Stock Name | Role | Phone | + [...] | [facility] [address] | [place] [address] | | | | | [address] [place], | [phone] | | | | | [place] [address] | | | | | | [phone] | | | +--------+ + + + [...] | | | | | [place] [address] | | | | | | [phone] | | | | | | | | +--------+ + + + + | 10/30/ | Office | Primary Care | Erika Ernst, | | | 2019 | Visit | | DO [address] [place] [address] | | | | | | [place] [address] | | | | | | [phone] | | | | | | | [...] [place] | | | | | | [address] | | | | | | [phone] | | | | | | | | +--------+ + + + + | 02/09/ | Office | Neurology | Dhara, | | | 2019 | Visit | | [address] | | | | | | [address] [place], | | | | | | [place] [address] | | | | | | [phone] | | | | | | | | +--------+ + + + + documented as of this encounter Visit Diagnoses Not on filedocumented in this encounter"
--- OUTSIDE RECORDS SUMMARY | ~2019-09-30 | XMS | Encounter Summary ---
Demographics + + + | Address | [address] | | | [place] [address] | + + + | Home Phone [...] Providers + +------+ + | Care Medical Receptionist Biller Name | Role | Phone | [...] | | | | encounter | [place] [address] | [place], [place] | | | | | Procedures | Phone: | [address] | | | | | [place] | [phone] | Phone: | | | | | | Fax: | [phone] | | | | | | [phone] | Fax: | | | | | | | [phone] | + + + + + + [...] | Office | [place] [facility] | Erika Enrst, | Sprain of right | | 2019 | Visit | [facility] | DO [address] | hand, subsequent | | | | [facility] [address] | [place] [address] | encounter (Primary | | | | [address] [place], | [phone] | Dx); Hypothyroidism, | | | | [place] [address] | | unspecified type; | | | | [phone] | | Iron deficiency | +--------+---------+ + [...] lateral side from sm finger proximally. 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 S he has appointment [...] No redness. Prior hubbard rgical area healed. City Marshal and ROM decreased due to pain of [...] | | | | | [place] [address] | | | | | | [phone] | | | | | | | | +--------+ + + + + | 10/30/ | Office | Primary Care | Erika Ernst, | | | 2019 | Visit | | DO [address] [place] | | | | | | [place] [address] | | | | | | [phone] | | | | | | | [...] [place] | | | | | | [address] | | | | | | [phone] | | | | | | | | +--------+ + + + + | 02/09/ | Office | Neurology | Dhara, | | | 2019 | Visit | | [address] | | | | | | [address] [place], | | | | | | [place] [address] | | | | | | [phone] | | | | | | | [...] + + + | [place] [facility] | [address] [place] [address] Street | [place] [address] | [phone] | | [facility] | | | | | MEDICAL CENTER [...]
--- OUTSIDE RECORDS SUMMARY | ~2019-09-30 | XMS | Encounter Summary ---
Demographics + + + | Address | [address] | | | [place] [address] | + + + | Home Phone [...] Providers + +------+ + | Care Technology Infusion Specialist Name | Role | Phone | [...] | | | | s (de | [place], [place] | [place] [address] | | | | | quervain) | [address] | Phone: | | | | | Pain in | Phone: | [phone] | | | | | right wrist | [phone] | Fax: | | | | | Procedures | Fax: | [phone] | | | | | OT TREAT | [phone] | | +--------+--------+ + + + + [...] | | [address] [place] | [place] [address] | (Primary Dx); Right | | | | [place] | [phone] | wrist pain | | | | [address] | | | | | | [phone] | Milla Gracia, OT | | +--------+ [...] as of this encounter Progress Notes Crew, iMlla Bella, OT - 08/29/2018 12:28 PM PST [facility] [address] [place] [address] Occupational Therapy PROGRESS NOTE Date: 08/28/2018 Patient [...] jar: 3 - Moderate Difficulty Do heavy client care specialist: 4 - Severe Difficulty Carry a shopping [...] se ssion) Strength: Left Hand Strength - Automobile Radio Repairer (lbs) L Automobile Radio Repairer Trial 1: 60 L Automobile Radio Repairer Trial 2: 55 L Automobile Radio Repairer Trial 3: 48 L Automobile Radio Repairer Trial Average: 54.33 L Three Jaw Payam Trial 1: 10 L Three Jaw Payam Trial 2: 13 L Three Jaw Payam Trial 3: 11 L Three Jaw Payam Trial Average: 11.33 L Lateral Pinch Trial 1: 16 L Lateral Pinch Trial 2: 17 L Lateral Pinch Trial 3: 17.5 L Lateral Pinch Trial Average: 16.83 Right Hand Strength - Automobile Radio Repairer (lbs) R Automobile Radio Repairer Trial 1: 26 R Automobile Radio Repairer Trial 2: 24 R Automobile Radio Repairer Trial 3: 23 R Automobile Radio Repairer Trial Average: 24.33 R Three Jaw Payam [...] 5: TFA (20 minutes): Objective measurements (ROM, camera assembler strength) and discus tunde of limitations to [...] pt has made progress with her R camera assembler strength, but is still experiencin g activity [...] in 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, and camera assembler and pinch weakness in the right [...] Goal 2: The pt will have right camera assembler strength of 50 lbs by discharge Goal 2 Status: At PN (08/28/18) PARTIALLY MET. Right camera assembler: 24, and left is 54 lbs Goal [...] Ordering Physician: Jeffrey Gandhi MD Claim #: [id number] Date of Injury: 07/20/2018 (Date of surgery) [...] at last Assessment Left Hand Strength - Automobile Radio Repairer (lbs) L Automobile Radio Repairer Trial 1: 60 L Automobile Radio Repairer Trial 2: 52 L Automobile Radio Repairer Trial 3: 55 L Automobile Radio Repairer Trial Average: 55.67 L Three Jaw Payam Trial 1: 13 L Three Jaw Payam Trial 2: 13 L Three Jaw Payam Trial 3: 14 L Three Jaw Payam Trial Average: 13.33 L Lateral Pinch Trial 1: 17 L Lateral Pinch Trial 2: 17 L Lateral Pinch Trial 3: 18 L Lateral Pinch Trial Average: 17.33 Right Hand Strength - Automobile Radio Repairer (lbs) R Automobile Radio Repairer Trial 1: 15 R Automobile Radio Repairer Trial 2: 24 R Automobile Radio Repairer Trial 3: 21 R Automobile Radio Repairer Trial Average: 20 R Three Jaw Payam Trial 1: 8 R Three Jaw Payam Trial 2: 10 R Three Jaw Payam Trial 3: 9 R Three Jaw Payam Trial Average: 9 R Lateral Pinch Trial 1: 8 R Lateral Pinch Trial 2: 10 R Lateral Pinch Trial 3: 11 R Lateral Pinch Trial Average: 9.67 Current Strength Left Hand Strength - Automobile Radio Repairer (lbs) L Automobile Radio Repairer Trial 1: 60 L Automobile Radio Repairer Trial 2: 55 L Automobile Radio Repairer Trial 3: 48 L Automobile Radio Repairer Trial Average: 54.33 L Three Jaw Payam Trial 1: 10 L Three Jaw Payam Trial 2: 13 L Three Jaw Payam Trial 3: 11 L Three Jaw Payam Trial Average: 11.33 L Lateral Pinch Trial 1: 16 L Lateral Pinch Trial 2: 17 L Lateral Pinch Trial 3: 17.5 L Lateral Pinch Trial Average: 16.83 Right Hand Strength - Automobile Radio Repairer (lbs) R Automobile Radio Repairer Trial 1: 26 R Automobile Radio Repairer Trial 2: 24 R Automobile Radio Repairer Trial 3: 23 R Automobile Radio Repairer Trial Average: 24.33 R Three Jaw Payam [...] 08/07/2018 Certification To: 10/30/2018 Treatment Plan/Interventions OT [id number] - Therapeutic [id number] - Therapeutic [id number] - Self Care/Ho me [id number] - Manual [id number] - Orthotic/Prosthetic [id number] - [id number] - Contrast [id number] - Paraffin BathSplinting Moist heat, cold therapy [...] pt has made progress with her R camera assembler strength, but is still experiencin g activity [...] | | | | | [place] [address] | | | | | | [phone] | | | | | | | | +--------+ + + + + | 10/30/ | Office | Primary Care | Erika Ernst, | | | 2019 | Visit | | DO [address] [place] | | | | | | [place] [address] | | | | | | [phone] | | | | | | | [...] [place] | | | | | | [address] | | | | | | [phone] | | | | | | | | +--------+ + + + + | 02/09/ | Office | Neurology | Dhara, | | | 2020 | Visit | | Cody, SCIENTIFIC RESEARCH MANAGER [address] | | [address] [facility] [place], | | | | | | [place] [address] | | | | | | [phone] | | | | | | | | +--------+ + + + + documented as of this encounter Visit Diagnoses + + | Diagnosis | + + | Radial styloid tenosynovitis - Primary | + + | Right wrist pain Pain in joint, forearm | + + documented in this encounter"
--- OUTSIDE RECORDS SUMMARY | ~2019-09-30 | XMS | Encounter Summary ---
Demographics + + + | Address | [address] | | | [place] [address] | + + + | Home Phone [...] Team Providers + +------+ + | Care Gin Inspector Name | Role | Phone | [...] | | | | | | [place] [address] | [address] | | | | | | Phone: | [place] | | | | | | [phone] | [place] | | | | | | Fax: | [address] Phone: | | | | | | [phone] | [phone] | | | | | | | Fax: | | | | | | | [phone] | +--------+ + + + + + [...] menstrual | | 2017 | Visit | [facility] | DO [address] [place] | periods (Primary | | | | MEDICAL CLIN[facility] [address] | [place] [address] | Dx); Dysmenorrhea | | | | [address] [place], | [phone] | | | | | [place] [address] | | | | | | [phone] | | | +--------+---------+ + + + [...] complaints of painful menstrual periods. Had seen Credit Administration Specialist in [place] in January for this and did not return for FU. First menses was at age 11. Periods are regular every 29 day s. No mid cycle pain. Flow is heavy first day then tapers. Pain starts first day and continu es whole period with cramping and even a day or two after period done. She would like referr al back to the Credit Administration Specialist in [place]. Period just ended, no pain today. Review [...] 2. Dysmenorrhea Plan: Referral to [facility] Specialist Dr Henna Green . She will take [...] | | | | | [place] [address] | | | | | | [phone] | | | | | | | | +--------+ + + + + | 10/30/ | Office | Primary Care | Erika Ernst, | | | 2019 | Visit | | DO [address] [place] | | | | | | [place] [address] | | | | | | [phone] | | | | | | | [...] [place] | | | | | | [address] | | | | | | [phone] | | | | | | | | +--------+ + + + + | 02/09/ | Office | Neurology | Dhara, | | | 2020 | Visit | | Cody, SINGEING TORCH OPERATOR [address] | | | | | | 4TH [facility] [place], | | | | | | [place] [address] | | | | | | [phone] | | | | | | | [...]
--- OUTSIDE RECORDS SUMMARY | ~2019-09-30 | XMS | Encounter Summary ---
Demographics + + + | Address | [address] | | | [place] [address] | + + + | Home Phone [...] Team Providers + +------+ + | Care Teenage Babysitter Name | Role | Phone | + [...] | [place], [place] | [place] [address] | | | | | [address] | [phone] | | | | | [phone] | | | +--------+ + + + [...] | | | | | [place] [address] | | | | | | [phone] | | | | | | | | +--------+ + + + + | 10/30/ | Office | Primary Care | Erika Ernst, | | | 2019 | Visit | | DO [address] [place] | | | | | | [place] [address] | | | | | | [phone] | | | | | | | [...] [place] | | | | | | [address] | | | | | | [phone] | | | | | | | | +--------+ + + + + | 02/09/ | Office | Neurology | Dhara, | | | 2019 | Visit | | [address]WA[address] | | | | | | [address]TH [place], | | | | | | [place] [address] | | | | | | [phone] | | | | | | | | +--------+ + + + + documented as of this encounter Visit Diagnoses Not on filedocumented in this encounter"
--- OUTSIDE RECORDS SUMMARY | ~2019-09-30 | XMS | Encounter Summary ---
Demographics + + + | Address | [address] | | | [place] [address] | + + + | Home Phone [...] Team Providers + +------+ + | Care Vest Finisher Name | Role | Phone | [...] | MEDICAL [facility] [address] | [place] [address] | | | | | [address] [place], | [phone] | | | | | [place] [address] | | | | | | [phone] | | | +--------+ + + + [...] | | | | | [place] [address] | | | | | | [phone] | | | | | | | | +--------+ + + + + | 10/30/ | Office | Primary Care | Erika Ernst, | | | 2019 | Visit | | DO [address] [place] | | | | | | [place] [address] | | | | | | [phone] | | | | | | | [...] [place] | | | | | | [address] | | | | | | [phone] | | | | | | | | +--------+ + + + + | 02/09/ | Office | Neurology | Dhara, | | | 2019 | Visit | | [address]WA[address] | | | | | | [address] [place], | | | | | | [place] [address] | | | | | | [phone] | | | | | | | | +--------+ + + + + documented as of this encounter Visit Diagnoses Not on filedocumented in this encounter"
--- OUTSIDE RECORDS SUMMARY | ~2019-09-30 | XMS | Encounter Summary ---
Demographics + + + | Address | [address] | | | [place] [address] | + + + | Home Phone [...] Team Providers + +------+ + | Care Boning Room Worker Name | Role | Phone [...] | | | | s (de | [place], [place] | [place] [address] | | | | | quervain) | [address] | Phone: | | | | | Pain in | Phone: | [phone] | | | | | right wrist | [phone] | Fax: | | | | | Procedures | Fax: | [phone] | | | | | OT EVAL | [phone] | | +--------+--------+ + + + + [...] | | [address] [place] | [place] [address] | | | | | [place] | [phone] | | | | | [address] | | | | | | [phone] | Nakia Koo OT | | +--------+ [...] Koo, OT - 08/07/2018 4:49 PM PST [facility] OT [address] [place] [address] Occupational Therapy Initial Assessment Date: 08/07/2018 Patient [...] new jar: 5 - Unable Do heavy esthetician/skin therapist: 5 - Unable Carry a shopping bag [...] Flexion: 22 Strength: Left Hand Strength - Insurance Examiner (lbs) L Insurance Examiner Trial 1: 60 L Insurance Examiner Trial 2: 52 L Insurance Examiner Trial 3: 55 L Insurance Examiner Trial Average: 55.67 L Three Jaw Payam Trial 1: 13 L Three Jaw Payam Trial 2: 13 L Three Jaw Payam Trial 3: 14 L Three Jaw Payam Trial Average: 13.33 L Lateral Pinch Trial 1: 17 L Lateral Pinch Trial 2: 17 L Lateral Pinch Trial 3: 18 L Lateral Pinch Trial Average: 17.33 Right Hand Strength - Insurance Examiner (lbs) R Insurance Examiner Trial 1: 15 R Insurance Examiner Trial 2: 24 R Insurance Examiner Trial 3: 21 R Insurance Examiner Trial Average: 20 R Three Jaw Payam [...] discussed with the pt who is in [facility]. Initial HEP established. Next Visit: Check [...] in 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, and loading inspector and pinch weakness i n the [...] Goal 2: The pt will have right loading inspector strength of 50 lbs by discharge Goal 2 Status: At evaluation, right loading inspector is 20 lbs and left is 56 [...] 08/07/2018 Certification To: 10/30/2018 Treatment Plan/Interventions OT [id number] - Therapeutic [id number] - Therapeutic [id number] - Self Care/Ho me [id number] - Manual Fjkegan92801 - Orthotic/Prosthetic Jnqckdax80144 - Ybuvcrsmnq573 34 - Contrast Zztt63101 - Paraffin BathSplinting Moist heat, cold therapy [...] | | | | | [place] [address] | | | | | | [phone] | | | | | | | | +--------+ + + + + | 10/30/ | Office | Primary Care | Erika Ernst, | | | 2019 | Visit | | DO [address] [place] | | | | | | [place] [address] | | | | | | [phone] | | | | | | | [...] [place] | | | | | | [address] | | | | | | [phone] | | | | | | | | +--------+ + + + + | 02/09/ | Office | Neurology | Dhara, | | | 2019 | Visit | | [address]WA[address] | | | | | | [address] [place], | | | | | | [place] [address] | | | | | | [phone] | | | | | | | | +--------+ + + + + documented as of this encounter Visit Diagnoses + + | Diagnosis | + + | Radial styloid tenosynovitis | + + documented in this encounter"
--- OUTSIDE RECORDS SUMMARY | ~2019-09-30 | XMS | Encounter Summary ---
Demographics + + + | Address | [address] | | | [place] [address] | + + + | Home Phone [...] Providers + +------+ + | Care Tool Room Machinist Name | Role | Phone | [...] | [place], [place] | [place] [address] | | | | | [address] | [phone] | | | | | [phone] | | | +--------+ + + + [...] | | | | | [place] [address] | | | | | | [phone] | | | | | | | | +--------+ + + + + | 10/30/ | Office | Primary Care | Erika Ernst, | | | 2019 | Visit | | DO [address] [place] | | | | | | [place] [address] | | | | | | [phone] | | | | | | | [...] [place] | | | | | | [address] | | | | | | [phone] | | | | | | | | +--------+ + + + + | 02/09/ | Office | Neurology | Dhara, | | | 2019 | Visit | | [address]WA[address] | | | | | | [address] [place], | | | | | | [place] [address] | | | | | | [phone] | | | | | | | | +--------+ + + + + documented as of this encounter Visit Diagnoses Not on filedocumented in this encounter"
--- OUTSIDE RECORDS SUMMARY | ~2019-09-30 | XMS | Encounter Summary ---
Demographics + + + | Address | [address] | | | [place] [address] | + + + | Home Phone [...] Providers + +------+ + | Care Sole Rounding Machine Operator Name | Role | Phone [...] [facility] | DO [address] | environmental | | | | MEDICAL CLINIC [address] | [place] [address] | allergies (Primary | | | | [address] [place], | [phone] | Dx); Thyroid cyst | | | | [place] [address] | | | | | | [phone] | | | +--------+---------+ + + + [...] | | | | | [place] [address] | | | | | | [phone] | | | | | | | | +--------+ + + + + | 10/30/ | Office | Primary Care | Erika Ernst, | | | 2019 | Visit | | DO [address] | | | | | | [place] [address] | | | | | | [phone] | | | | | | | [...] [place] | | | | | | [address] | | | | | | [phone] | | | | | | | | +--------+ + + + + | 02/09/ | Office | Neurology | Dhara, | | | 2019 | Visit | | [address]INE [address] | | | | | | 4TH [facility] [place], | | | | | | [place] [address] | | | | | | [phone] | | | | | | | | +--------+ + + + + documented as of this encounter Visit Diagnoses + + | Diagnosis | + + | 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
--- OUTSIDE RECORDS SUMMARY | ~2019-09-30 | XMS | Encounter Summary ---
Demographics + + + | Address | [address] | | | [place] [address] | + + + | Home Phone [...] Team Providers + +------+ + | Care Hop Weigher Name | Role | Phone | + +------+ + | Erika Ernst DO | PCP | | + +------+ + Reason for Visit + + + | Reason | Comments | + + + | Imaging Only | CT HEAD from [facility] | + + + Encounter Details +--------+ + + + + | Date | Type | Department | Care Team | Description | +--------+ + + + + | 01/25/ | Telephone | [place] [facility] | Luis Nichole MD | Imaging Only (CT | | 2019 | | HOSPITAL [address] | [address] | HEAD from [facility] | | | | [address] [place] | A [facility], [place] | [facility]) | | | | [facility] [place] | [address] | | | | | [address] | | | | | | [phone] | | | +--------+ + + + [...] | | | | | [place] [address] | | | | | | [phone] | | | | | | | | +--------+ + + + + | 10/30/ | Office | Primary Care | Erika Ernst, | | | 2019 | Visit | | DO [address] [place] | | | | | | [place] [address] | | | | | | [phone] | | | | | | | [...] [place] | | | | | | [address] | | | | | | [phone] | | | | | | | | +--------+ + + + + | 02/09/ | Office | Neurology | Dhara, | | | 2020 | Visit | | [address]WA[address] | | | | | | [address] [place], | | | | | | [place] [address] | | | | | | [phone] | | | | | | | | +--------+ + + + + documented as of this encounter Visit Diagnoses Not on filedocumented in this encounter"
--- OUTSIDE RECORDS SUMMARY | ~2019-09-30 | XMS | Encounter Summary ---
Demographics + + + | Address | [address] | | | [place] [address] | + + + | Home Phone [...] Providers + +------+ + | Care Internal Security Manager Name | Role | Phone | [...] MEDICAL CLINIC [address] | [place] [address] | | | | | [address] [place], | [phone] | | | | | [place] [address] | | | | | | [phone] | | | +--------+ + + + [...] | | | | | [place] [address] | | | | | | [phone] | | | | | | | | +--------+ + + + + | 10/30/ | Office | Primary Care | Erika Ernst, | | | 2019 | Visit | | DO [address] [place] | | | | | | [place] [address] | | | | | | [phone] | | | | | | | [...] [place] | | | | | | [address] | | | | | | [phone] | | | | | | | | +--------+ + + + + | 05/11/ | Office | Neurology | Dhara, | | | 2019 | Visit | | [address] | | | | | | [address] [place], | | | | | | [place] [address] | | | | | | [phone] | | | | | | | | +--------+ + + + + documented as of this encounter Visit Diagnoses Not on filedocumented in this encounter"
--- OUTSIDE RECORDS SUMMARY | ~2019-09-30 | XMS | Encounter Summary ---
Demographics + + + | Address | [address] | | | [place] [address] | + + + | Home Phone [...] Team Providers + +------+ + | Care Microfiche Camera Operator Name | Role | Phone | [...] | [address] | | | | | [address] | | | | | | [phone] | | | +--------+--------+ + + + [...] | | | | | [place] [address] | | | | | | [phone] | | | | | | | | +--------+ + + + + | 10/30/ | Office | Primary Care | Erika Ernst, | | | 2019 | Visit | | DO [address] [place] [address] | | | | | | [place] [address] | | | | | | [phone] | | | | | | | [...] [place] | | | | | | [address] | | | | | | [phone] | | | | | | | | +--------+ + + + + | 02/09/ | Office | Neurology | Dhara, | | | 2019 | Visit | | [address] | | | | | | [address] [place], | | | | | | [place] [address] | | | | | | [phone] | | | | | | | | +--------+ + + + + documented as of this encounter Visit Diagnoses Not on filedocumented in this encounter"
--- OUTSIDE RECORDS SUMMARY | ~2019-09-30 | XMS | Encounter Summary ---
Demographics + + + | Address | [address] | | | [place] [address] | + + + | Home Phone [...] Team Providers + +------+ + | Care Market Development Trainer Name | Role | Phone | [...] | | | [place], [place] | [address] | | | | | [address] | [phone] | | | | | [phone] | | | +--------+ + + + [...] | | | | | [place] [address] | | | | | | [phone] | | | | | | | | +--------+ + + + + | 10/30/ | Office | Primary Care | Erika Ernst, | | | 2019 | Visit | | DO [address] [place] | | | | | | [place] [address] | | | | | | [phone] | | | | | | | [...] [place] | | | | | | [address] | | | | | | [phone] | | | | | | | | +--------+ + + + + | 02/09/ | Office | Neurology | Dhara, | | | 2020 | Visit | | [address] | | | | | | [address] [place], | | | | | | [place] [address] | | | | | | [phone] | | | | | | | | +--------+ + + + + documented as of this encounter Visit Diagnoses Not on filedocumented in this encounter"
--- OUTSIDE RECORDS SUMMARY | ~2019-09-30 | XMS | Encounter Summary ---
Demographics + + + | Address | [address] | | | [place] [address] | + + + | Home Phone [...] Team Providers + +------+ + | Care Provisioning Specialist Name | Role | Phone | [...] | | | of left | [place] [address] | [place] [address] | | | | | ankle, | Phone: | Phone: | | | | | initial | [phone] | [phone] | | | | | encounter | Fax: | Fax: | | | | | Procedures | [phone] | [phone] | | | | | PT EVAL [...] [address] [place] | [place] [address] | encounter (Primary | | | | [place], [place] | [phone] | Dx); Fall on same | | | | [address] | | level from slipping, | | | | [phone] | Nick Barrios I, PT | subsequent [...] has been updated for this PT series ([id number]) based on the documentation on the plan of care. Please code visit diagnoses as follows: Primary: S93.412D sprain L ankle, subsequent Secondary: W01.0XXD fall from slipping If you have any further questions please let me know. Thank you, Shelly Zeng, CCA Electronically signed by: Nick Barrios, PT, 08/07/2018 11:42 [email or web address], Nick Szymanski, PT - 07/20/2018 10:20 AM PDT [facility] PT [address] [place] [address] Physical Therapy Daily Treatment Note Date: 07/19/2018 [...] | | | | | [place] [address] | | | | | | [phone] | | | | | | | | +--------+ + + + + | 10/30/ | Office | Primary Care | Erika Ernst, | | | 2019 | Visit | | DO [address] [place] | | | | | | [place] [address] | | | | | | [phone] | | | | | | | [...] [place] | | | | | | [address] | | | | | | [phone] | | | | | | | | +--------+ + + + + | 02/09/ | Office | Neurology | Dhara, | | | 2019 | Visit | | [address] | | | | | | 4TH [facility] [place], | | | | | | [place] [address] | | | | | | [phone] | | | | | | | | +--------+ + + + + documented as of this encounter Visit Diagnoses + + | Diagnosis | + + | Sprain of left ankle, subsequent encounter - Primary | + + | Fall on same level from slipping, subsequent encounter | + + documented in this encounter
--- OUTSIDE RECORDS SUMMARY | ~2019-09-30 | XMS | Encounter Summary ---
Demographics + + + | Address | [address] | | | [place] [address] | + + + | Home Phone [...] Team Providers + +------+ + | Care Backend Tester Name | Role | Phone | [...] [place] | | | | | | [address] | | | | | | [phone] | | | +--------+ + + + [...] | | | | | [place] [address] | | | | | | [phone] | | | | | | | | +--------+ + + + + | 10/30/ | Office | Primary Care | Erika Ernst, | | | 2019 | Visit | | DO [address] [place] | | | | | | [place] [address] | | | | | | [phone] | | | | | | | [...] [place] | | | | | | [address] | | | | | | [phone] | | | | | | | | +--------+ + + + + | 02/09/ | Office | Neurology | Dhara, | | | 2019 | Visit | | [address] | | | | | | [address] [place], | | | | | | [place] [address] | | | | | | [phone] | | | | | | | | +--------+ + + + + documented as of this encounter Visit Diagnoses + + | Diagnosis | + + | Radial styloid tenosynovitis - Primary | + + | Right wrist pain Pain in joint, forearm | + + documented in this encounter"
--- OUTSIDE RECORDS SUMMARY | ~2019-09-30 | XMS | Encounter Summary ---
Demographics + + + | Address | [address] | | | [place] [address] | + + + | Home Phone [...] + + + + | 04/26/ | [facility] | [place] [facility] | Erika Ernst, | | | 2016 | Encounter | [facility] | DO [address] | | | | | MEDICAL CLIN[facility] [address] | [place] [address] | | | | | [address] [place], | [phone] | | | | | [place] [address] | | | | | | [phone] | | | +--------+ + + + [...] | | | | | [place] [address] | | | | | | [phone] | | | | | | | | +--------+ + + + + | 10/30/ | Office | Primary Care | Erika Ernst, | | | 2019 | Visit | | DO [address] [place] | | | | | | [place] [address] | | | | | | [phone] | | | | | | | [...] [place] | | | | | | [address] | | | | | | [phone] | | | | | | | | +--------+ + + + + | 02/09/ | Office | Neurology | Dhara, | | | 2020 | Visit | | [address] | | | | | | [address] [place], | | | | | | [place] [address] | | | | | | [phone] | | | | | | | | +--------+ + + + + documented as of this encounter Visit Diagnoses Not on filedocumented in this encounter"
--- OUTSIDE RECORDS SUMMARY | ~2019-09-30 | XMS | Encounter Summary ---
Demographics + + + | Address | [address] | | | [place] [address] | + + + | Home Phone [...] Providers + +------+ + | Care Petroleum Production Engineer Name | Role | Phone | + +------+ + PCP | Unavailable | + +------+ + Encounter Details +--------+ + + + + | Date | Type | Department | Care Team | Description | +--------+ + + + + | 01/24/ | [facility] | Cody Go | | | 2017 | Encounter | [facility] | [address] [place] | | | | | WALK[facility]IN CL[facility] [address] | [facility], [place] | | | | | [facility], | [address] | | | | | [place] [address] | [phone] | | | | | [phone] | | | +--------+ + + + [...] | | | | | [place] [address] | | | | | | [phone] | | | | | | | | +--------+ + + + + | 10/30/ | Office | Primary Care | Erika Ernst, | | | 2019 | Visit | | DO [address] [place] | | | | | | [place] [address] | | | | | | [phone] | | | | | | | [...] [place] | | | | | | [address] | | | | | | [phone] | | | | | | | | +--------+ + + + + | 02/09/ | Office | Neurology | Dhara, | | | 2019 | Visit | | [address] | | | | | | [address] [place], | | | | | | [place] [address] | | | | | | [phone] | | | | | | | | +--------+ + + + + documented as of this encounter Visit Diagnoses Not on filedocumented in this encounter"
--- OUTSIDE RECORDS SUMMARY | ~2019-09-30 | XMS | Encounter Summary ---
Demographics + + + | Address | [address] | | | [place] [address] | + + + | Home Phone [...] Providers + +------+ + | Care Blender Conveyor Operator Name | Role | Phone | + +------+ + PCP | Unavailable | + +------+ + Encounter Details +--------+ + + + + | Date | Type | Department | Care Team | Description | +--------+ + + + + | 12/19/ | [facility] | [place] [facility] | Erika Ernst, | | | 2016 | Encounter | [facility] | DO [address] [place] | | | | | MEDICAL CL[facility] [address] | [facility] [address] | | | | | [address] [place], | [phone] | | | | | [place] [address] | | | | | | [phone] | | | +--------+ + + + [...] | | | | | [place] [address] | | | | | | [phone] | | | | | | | | +--------+ + + + + | 10/30/ | Office | Primary Care | Erika Ernst, | | | 2019 | Visit | | DO [address] [place] | | | | | | [place] [address] | | | | | | [phone] | | | | | | | [...] [place] | | | | | | [address] | | | | | | [phone] | | | | | | | | +--------+ + + + + | 02/09/ | Office | Neurology | Dhara, | | | 2019 | Visit | | [address] | | | | | | [address] [place], | | | | | | [place] [address] | | | | | | [phone] | | | | | | | | +--------+ + + + + documented as of this encounter Visit Diagnoses Not on filedocumented in this encounter"
--- OUTSIDE RECORDS SUMMARY | ~2019-09-30 | XMS | Encounter Summary ---
Demographics + + + | Address | [address] | | | [place] [address] | + + + | Home Phone [...] Providers + +------+ + | Care Assistant Producer Name | Role | Phone | [...] | MEDICAL CLINIC [address] | [place] [address] | (Primary Dx); | | | | [address] [place], | [phone] | Depression, | | | | [place] [address] | | unspecified | | | | [phone] | | depression type; | | | [...] week and went to the ER in [place] and had a steroid injection. She is [...] | | | | | [place] [address] | | | | | | [phone] | | | | | | | | +--------+ + + + + | 10/30/ | Office | Primary Care | Erika Ernst, | | | 2019 | Visit | | DO [address] [place] | | | | | | [place] [address] | | | | | | [phone] | | | | | | | [...] [place] | | | | | | [address] | | | | | | [phone] | | | | | | | | +--------+ + + + + | 02/09/ | Office | Neurology | Dhara, | | | 2020 | Visit | | [address] | | | | | | [address] [place], | | | | | | [place] [address] | | | | | | [phone] | | | | | | | [...]
--- OUTSIDE RECORDS SUMMARY | ~2019-09-30 | XMS | Encounter Summary ---
Demographics + + + | Address | [address] | | | [place] [address] | + + + | Home Phone [...] Providers + +------+ + | Care Child Caregiver Private Home Name | Role | Phone | [...] CLINIC [address] | [place] [address] | Essential | | | | [address] [place], | [phone] | hypertension; | | | | [place] [address] | | Moderate persistent | | | | [phone] | | asthma with acute | | [...] increa sed inhaler use TID per her emergency man and is on oral prednisone and tolerating [...] | | | | | [place] [address] | | | | | | [phone] | | | | | | | | +--------+ + + + + | 10/30/ | Office | Primary Care | Erika Ernst, | | | 2019 | Visit | | DO [address] | | | | | | [place] [address] | | | | | | [phone] | | | | | | | [...] [place] | | | | | | [address] | | | | | | [phone] | | | | | | | | +--------+ + + + + | 02/09/ | Office | Neurology | Dhara, | | | 2020 | Visit | | [address] | | | | | | [address], | | | | | | [place] [address] | | | | | | [phone] | | | | | | | [...] + + | [place] [facility] | [address] | [place] [address] | [phone] | | [facility] | | | [...] + + | [place] [facility] | [address] | [place] [address] | [phone] | | [facility] | | | [...]
--- OUTSIDE RECORDS SUMMARY | ~2019-09-30 | XMS | Encounter Summary ---
Demographics + + + | Address | [address] | | | [place] [address] | + + + | Home Phone [...] Providers + +------+ + | Care Food Assembler Name | Role | Phone | [...] CENTER [address] | [facility] | | | | | DR [place], [place] | [place] [address] | | | | | [address] | [phone] | | | | | [phone] | | | +--------+ + + + [...] | 11/26/19 | | | (VITAMIN D3) 84146 | mouth Once a week | tablet [...] | | | | | [place] [address] | | | | | | [phone] | | | | | | | | +--------+ + + + + | 10/30/ | Office | Primary Care | Erika Ernst, | | | 2019 | Visit | | DO [address] | | | | | | [place] [address] | | | | | | [phone] | | | | | | | [...] [place] | | | | | | [address] | | | | | | [phone] | | | | | | | | +--------+ + + + + | 02/09/ | Office | Neurology | [place]ara, | | | 2019 | Visit | | DWAINE Ross [address] | | | | | [address] [place], | | | | | | [place] [address] | | | | | | [phone] | | | | | | | [...] C?MRN: | | | | | | [id number] | | | [id number] | | | riteri | | | [...] | | | St. | | | [place]quin[place] | | | y | | | [...] | | | St. | | | [place] | | | y H. | | [...] | | | ent/e5 | | | [id number] | | | -[id number]- | | | 444a-8 | | | [id number] | | | [id number] | | | 7078 | | | [...]
--- OUTSIDE RECORDS SUMMARY | ~2019-09-30 | XMS | Encounter Summary ---
Demographics + + + | Address | [address] | | | [place] [address] | + + + | Home Phone [...] + + + | 05/14/ | [facility] | Caro Zendejas | | | 2013 | Encounter | [facility] | [place], OCCUPATIONAL HEALTH AND SAFETY OFFICER [address] | | | | | MEDICAL CLINIC [address] | [facility], [place] | | | | | [address]TH [facility], | [address] | | | | | [place] [address] | [phone] | | | | | [phone] | | | +--------+ + + + [...] | | | | | [place] [address] | | | | | | [phone] | | | | | | | | +--------+ + + + + | 10/30/ | Office | Primary Care | Erika Ernst, | | | 2019 | Visit | | DO [address] | | | | | | [place] [address] | | | | | | [phone] | | | | | | | [...] [place] | | | | | | [address] | | | | | | [phone] | | | | | | | | +--------+ + + + + | 02/09/ | Office | Neurology | Dhara, | | | 2020 | Visit | | DWAINE Ross [address] | | | | | | [address] [place], | | | | | | [place] [address] | | | | | | [phone] | | | | | | | | +--------+ + + + + documented as of this encounter Visit Diagnoses Not on filedocumented in this encounter"
--- OUTSIDE RECORDS SUMMARY | ~2019-09-30 | XMS | Encounter Summary ---
Demographics + + + | Address | [address] | | | [place] [address] | + + + | Home Phone [...] Providers + +------+ + | Care Grocery Store Bagger Name | Role | Phone | + [...] Medication Prior | | 2018 | | [facility] | [address] [place] | Authorization | | | | MEDICAL CLINIC [address] | [place] [address] | (Metoprolol | | | | [address] [place], | [phone] | Succinate ER 100 mg | | | | [place] [address] | | ) | | | | [phone] | | | +--------+ + + + [...] | | | | | [place] [address] | | | | | | [phone] | | | | | | | | +--------+ + + + + | 10/30/ | Office | Primary Care | Erika Ernst, | | | 2019 | Visit | | DO [address] | | | | | | [place] [address] | | | | | | [phone] | | | | | | | [...] [place] | | | | | | [address] | | | | | | [phone] | | | | | | | | +--------+ + + + + | 02/09/ | Office | Neurology | Dhara, | | | 2020 | Visit | | DWAINE Ross [address] | | | | | | [address] [place], | | | | | | [place] [address] | | | | | | [phone] | | | | | | | | +--------+ + + + + documented as of this encounter Visit Diagnoses Not on filedocumented in this encounter"
--- OUTSIDE RECORDS SUMMARY | ~2019-09-30 | XMS | Encounter Summary ---
Demographics + + + | Address | [address] | | | [place] [address] | + + + | Home Phone [...] Team Providers + +------+ + | Care Scale Attendant Name | Role | Phone | [...] | MEDICAL CLINIC [address] | [place] [address] | | | | | [address] [place], | [phone] | | | | | [place] [address] | | | | | | [phone] | | | +--------+ + + + [...] 506 | | | | | | [place] [address] | | | | | | [phone] | | | | | | | | +--------+ + + + + | 10/30/ | Office | Primary Care | Erika Ernst, | | | 2019 | Visit | | DO [address] | | | | | | [place] [address] | | | | | | [phone] | | | | | | | [...] [place] | | | | | | [address] | | | | | | [phone] | | | | | | | | +--------+ + + + + | 02/09/ | Office | Neurology | Dhara, | | | 2019 | Visit | | DWAINE Ross [address] | | | | | | [address] [place], | | | | | | [place] [address] | | | | | | [phone] | | | | | | | | +--------+ + + + + documented as of this encounter Visit Diagnoses Not on filedocumented in this encounter"
--- OUTSIDE RECORDS SUMMARY | ~2019-09-30 | XMS | Encounter Summary ---
Demographics + + + | Address | [address] | | | [place] [address] | + + + | Home Phone [...] + +------+ + | Care Senior Sql Dba Name | Role | Phone | [...] CLINIC [address] | [place] [address] | (Primary Dx); | | | | [address] [place], | [phone] | Asthma due to | | | | [place] [address] | | environmental | | | | [phone] | | allergies | +--------+---------+ + + [...] daily. 1 Inhaler 11 Cholecalciferol (VITAMIN D3) 09129 units TABS Take 1 tablet by mouth [...] | | | | | [place] [address] | | | | | | [phone] | | | | | | | | +--------+ + + + + | 10/30/ | Office | Primary Care | Erika Ernst, | | | 2019 | Visit | | DO [address] [facility] [address] | | | | | | [place] [address] | | | | | | [phone] | | | | | | | [...] [place] | | | | | | [address] | | | | | | [phone] | | | | | | | | +--------+ + + + + | 02/09/ | Office | Neurology | Dhara, | | | 2019 | Visit | | DWAINE [address] | | | | | | [address] [facility] [place], | | | | | | [place] [address] | | | | | | [phone] | | | | | | | | +--------+ + + + + documented as of this encounter Visit Diagnoses + + | Diagnosis | + + | Acute bronchitis, unspecified organism - Primary | + + | Asthma due to environmental allergies | + + documented in this encounter
--- OUTSIDE RECORDS SUMMARY | ~2019-09-30 | XMS | Encounter Summary ---
Demographics + + + | Address | [address] | | | [place] [address] | + + + | Home Phone [...] Team Providers + +------+ + | Care Dairy Helper Name | Role | Phone | [...] | | | [address] | [facility] [place] | | | | | [place], [place] | [address] | | | | | [address] | [phone] | | | | | [phone] | | | +--------+ + + + [...] | | | | | [place] [address] | | | | | | [phone] | | | | | | | | +--------+ + + + + | 10/30/ | Office | Primary Care | Erika Ernst, | | | 2019 | Visit | | DO [address] | | | | | | [place] [address] | | | | | | [phone] | | | | | | | [...] [place] | | | | | | [address] | | | | | | [phone] | | | | | | | | +--------+ + + + + | 02/09/ | Office | Neurology | Dhara, | | | 2020 | Visit | | DWAINE Ross [address] | | | | | | [address] [place], | | | | | | [place] [address] | | | | | | [phone] | | | | | | | | +--------+ + + + + documented as of this encounter Visit Diagnoses Not on filedocumented in this encounter"
--- OUTSIDE RECORDS SUMMARY | ~2019-09-30 | XMS | Encounter Summary ---
Demographics + + + | Address | [address] | | | [place] [address] | + + + | Home Phone [...] + +------+ + | Care Field Sales Agent Name | Role | Phone [...] | [place], [place] | [place] [address] | | | | | [address] | [phone] | | | | | [phone] | | | +--------+ + + + [...] 2018 | Visit | | DO [address] [facility] | | | | | | [place] [address] | | | | | | [phone] | | | | | | | | +--------+ + + + + | 10/30/ | Office | Primary Care | Erika Ernst, | | | 2019 | Visit | | DO [address] | | | | | | [place] [address] | | | | | | [phone] | | | | | | | [...] [place] | | | | | | [address] | | | | | | [phone] | | | | | | | | +--------+ + + + + | 02/09/ | Office | Neurology | Dhara, | | | 2020 | Visit | | DWAINE Ross [address] | | | | | | [address] [place], | | | | | | [place] [address] | | | | | | [phone] | | | | | | | | +--------+ + + + + documented as of this encounter Visit Diagnoses Not on filedocumented in this encounter"
--- OUTSIDE RECORDS SUMMARY | ~2019-09-30 | XMS | Encounter Summary ---
Demographics + + + | Address | [address] | | | [place] [address] | + + + | Home Phone [...] Providers + +------+ + | Care Meat Passer Name | Role | Phone | + [...] 2019 | Visit | [facility] | DAIRY FEED WORKER [address] [facility] | forearm, right, | | | | WALK-IN CLINIC [address] | [place] [address] | initial encounter | | | | 4TH [facility], | [phone] | (Primary Dx) | | | | [place] [address] | | | | | | [phone] | | | +--------+---------+ + + + [...] as long as directed by your [facility] provider. ? If you were given [...] reapply it to the wound as directed. [place] r the wound with a fresh nonstick [...] part near the wound Date Last Reviewed: 12/02/201619992270-7873 [employer]. [address] [place] [address]. All righ ts reserved. This information is [...] mouth. Once a week Cholecalciferol (VITAMIN D3) 06276 units TABS Take 1 tablet by mouth [...] your PCP. Electronically Signed by CAITIE WoodruffP3/14:[address] [facility] documented in this [...] | | | | | [place] [address] | | | | | | [phone] | | | | | | | | +--------+ + + + + | 10/30/ | Office | Primary Care | Erika Ernst, | | | 2019 | Visit | | DO [address] | | | | | | [place] [address] | | | | | | [phone] | | | | | | | [...] [place] | | | | | | [address] | | | | | | [phone] | | | | | | | | +--------+ + + + + | 02/09/ | Office | Neurology | Dhara, | | | 2019 | Visit | | DWAINE Ross [address] | | | | | | [address] [place], | | | | | | [place] [address] | | | | | | [phone] | | | | | | | | +--------+ + + + + documented as of this encounter Visit Diagnoses + + | Diagnosis | + + | Excoriation of forearm, right, initial encounter - Primary | + + documented in this encounter
--- OUTSIDE RECORDS SUMMARY | ~2019-09-30 | XMS | Encounter Summary ---
Demographics + + + | Address | [address] | | | [place] [address] | + + + | Home Phone [...] Team Providers + +------+ + | Care Ct Scan Technologist Name | Role | Phone | [...] | | | | Spotting | [place] [address] | [place], [place] | | | | | between | Phone: | [address] | | | | | menses | [phone] | Phone: | | | | | | Fax: | [phone] | | | | | | [phone] | Fax: | | | | | | | [phone] | +--------+ + + + + + [...] | MEDICAL CLINIC [address] | [place] [address] | (Primary Dx); Heart | | | | [address] [place], | [phone] | palpitations; | | | | [place] [address] | | Anxiety; Painful | | | | [phone] | | menstrual periods; | | | [...] would like a second opinion referral to [facility] for her menstrual issues, painful with mid cycle break through. She has been seeing [facility] in [facility] and she wants to put in a IUD and pt does not agree with this plan. Will do referral to our [facility] Women's clinic. She just finis hed antibiotics [...] 4. Painful menstrual periods * [place] [facility] - AMB Referral 5. Spotting between menses * [place] Carreno [facility]-OPERATIONS [facility] - AMB Referral 6. Natalia vaginitis Plan: She will continue to monitor HTN and HR at home. 48 hour Holter monitor ordered. Increase B uspar to 30 mg BID . Referral to [facility] Women's clinic Diflucan daily x 3 days [...] | | | | | [place] [address] | | | | | | [phone] | | | | | | | | +--------+ + + + + | 10/30/ | Office | Primary Care | Erika Ernst, | | | 2019 | Visit | | DO [address] | | | | | | [place] [address] | | | | | | [phone] | | | | | | | [...] [place] | | | | | | [address] | | | | | | [phone] | | | | | | | | +--------+ + + + + | 02/09/ | Office | Neurology | Dhara, | | | 2019 | Visit | | DWAINE Ross [address] | | | | | | [address] [place], | | | | | | [place] [address] | | | | | | [phone] | | | | | | | | +--------+ + + + + + + +--------+ + + | Name | Type | Priori | Associated Diagnoses | Order Schedule | | | | ty | | | + + +--------+ + + | * [place] [facility] | Outpatient | Routin | Painful menstrual | Ordered: 12/13/2018 | | [facility]-OPERATIONS [facility]ARDMAN - AMB | Referral | e | [...]
--- OUTSIDE RECORDS SUMMARY | ~2019-09-30 | XMS | Encounter Summary ---
Demographics + + + | Address | [address] | | | [place] [address] | + + + | Home Phone [...] Team Providers + +------+ + | Care Topographical Field Assistant Name | Role | Phone | [...] | | | MEDICAL CLINIC [address] | [facility] [place] [address] | allergies (Primary | | | | [address] [place], | [phone] | Dx); Nausea | | | | [place] [address] | | | | | | [phone] | | | +--------+---------+ + + + [...] daily. 1 Inhaler 11 Cholecalciferol (VITAMIN D3) 84146 units TABS Take 1 tablet by mouth [...] | | | | | [place] [address] | | | | | | [phone] | | | | | | | | +--------+ + + + + | 10/30/ | Office | Primary Care | Erika Ernst, | | | 2019 | Visit | | DO [address] [place] | | | | | | [place] [address] | | | | | | [phone] | | | | | | | [...] [place] | | | | | | [address] | | | | | | [phone] | | | | | | | | +--------+ + + + + | 02/09/ | Office | Neurology | Dhara, | | | 2019 | Visit | | DWAINE Ross [address] | | | | | | [address] [place], | | | | | | [place] [address] | | | | | | [phone] | | | | | | | [...] | [address] | [place] [address] | [phone] | [facility] | | | [facility] | | | | + + + + + documented in this encounter Visit Diagnoses + + | Diagnosis | + + | Asthma due to environmental allergies - Primary | + + | Nausea Nausea alone | + + documented in this encounter
--- OUTSIDE RECORDS SUMMARY | ~2019-09-30 | XMS | Encounter Summary ---
Demographics + + + | Address | [address] | | | [place] [address] | + + + | Home Phone [...] Providers + +------+ + | Care Tank Builder And Erector Name | Role | Phone | [...] | syndrome | [place] | [address] | | | | | Procedures | [place], [place] | Phone: | | | | | MRI Brain w | [address] | [phone] | | | | | wo Contrast | Phone: | Fax: | | | | | | [phone] | [phone] | | | | | | Fax: | | | | | | | [phone] | | +--------+--------+ + + + + [...] | | | | | | [place] [address] | [place], [place] | | | | | | Phone: | [address] Phone: | | | | | | [phone] | [phone] | | | | | | Fax: | Fax: | | | | | | [phone] | [phone] | +--------+ + + + + + [...] | | | DR [address] [place], | [address] | | | | | [place] [address] | | | | | | [phone] | | | +--------+---------+ + + + [...] be different from the original. Patient Instructions [facility] Neurology Clinic Dr. Luis Nichole, Neurologist Date:01/30/2019 [...] le, and scrabble, other puzzle games like SudMedEncentiveu, Mahjong. Play computer/mobile applications such as [employer] and [employer]AMES Advised to wrist things down such as task to perform and conversation Any Questions please call BAKARI Terrell or Dr. Nichole at [facility] Neurology Clinic Coping with Concussion Concussion [...] bath or taking a hot shower. Take qigu-eqx-lbuhpxv acetaminophen to relieve headache pain. Take them [...] treatment y ou need. Date Last Reviewed: 10/02/201719998917-1718 [employer]. [address] [place] [address], [place] [address]. All righ ts reserved. This information is [...] with dizziness or fainting. Date Last Reviewed: 08/02/201619996351-90[address] [employer] [place] [address]. All rig ts reserved. This information is [...] may faint. Date Last Reviewed: 01/30/2018 [employer]. [address] [place] [address]. All righ ts reserved. This information is not intended as a substitute for professional medical care. Always follow your healthcare professional's instructions. documented in this encounter Progress Notes Luis Nichole MD - 01/30/2019 11:15 AM PDT Patient: Andrea Suh Medical Record: [id number] Date of Services: 01/30/2019 Referring Doctor: Erika [...] t siria recurrent, with patient usually receiving muqs-tvw-iiaxuxq medications. The headaches are associated with occasional [...] Maternal Grandmother Heart attack Maternal Aunt [place] Review of Systems: Denies earache, nasal catarrh, [...] mouth. Once a week Cholecalciferol (VITAMIN D3) 70941 units TABS Take 1 tablet by mouth [...] and oriented to time, place, and person. [facility] is fluent. Attention, comprehension, and general fund [...] CEREBELLAR EXAMINATION: There is no dysmetria on abfoct-on-occw test. MISCELLANEOUS EXAM: Atraumatic, no evidence of [...] pain, surgeries, x 2 Plan: Patient Instructions [facility] Neurology Clinic Dr. Lusi Nichole, Neurologist Date:01/30/2019 Name:Andrea Henaonanci :..1990 Please [...] le, and scrabble, other puzzle games like Tapatapu, Mahjong. Play computer/mobile applications such as [employer] and [employer] GAMES Advised to wrist things down such as task to perform and conversation Any Questions please call BAKARI Terrell or Dr. Nichole at [facility] Neurology Clinic Coping with Concussion Concussion [...] bath or taking a hot shower. Take gujx-afb-rbvrwex acetaminophen to relieve headache pain. Take them [...] treatment y ou need. Date Last Reviewed: 10/02/201719998486-2379 [employer]. [address] [place] [address]. All righ ts reserved. This information is [...] or fainting. Date Last Reviewed: 08/02/2016 [employer]. [address] [place] [address]. All rig ts reserved. This information is [...] vessels, you may faint. Date Last Reviewed: 01/30/201819999412-7900 [employer]. [address] [place] [address]. All righ ts reserved. This information is not intended as a substitute for professional medical care. Always follow your healthcare professional's instructions. Luis Nichole MD01/30/201911:34 Electronically signed NOTE: Part of this report was transcribed using voice recognition software. Every effort was made to ensure accuracy. However, inadvertent computerize shoe parts molder errors may be present documented in this [...] | | | | | [place] [address] | | | | | | [phone] | | | | | | | | +--------+ + + + + | 10/30/ | Office | Primary Care | Erika Ernst, | | | 2019 | Visit | | DO [address] | | | | | | [place] [address] | | | | | | [phone] | | | | | | | [...] [place] | | | | | | [address] | | | | | | [phone] | | | | | | | | +--------+ + + + + | 02/09/ | Office | Neurology | Dhara, | | | 2019 | Visit | | DWAINE Ross [address] | | | | | [address] [place], | | | | | | [place] [address] | | | | | | [phone] | | | | | | | [...]
--- OUTSIDE RECORDS SUMMARY | ~2019-09-30 | XMS | Encounter Summary ---
Demographics + + + | Address | [address] | | | [place] [address] | + + + | Home Phone [...] Team Providers + +------+ + | Care Carrot Harvester Name | Role | Phone | + [...] Pain (Pt | | 2019 | | [facility] | DO [facility] [address] | request call back | | | | MEDICAL CLINIC [address] | [place] [address] | today re: right | | | | [address] [place], | [phone] | ankle sprain) | | | | [place] [address] | | | | | | [phone] | | | +--------+ + + + [...] | | | | | [place] [address] | | | | | | [phone] | | | | | | | | +--------+ + + + + | 10/30/ | Office | Primary Care | Erika Ernst, | | | 2019 | Visit | | DO [address] [place] | | | | | | [place] [address] | | | | | | [phone] | | | | | | | [...] [place] | | | | | | [address] | | | | | | [phone] | | | | | | | | +--------+ + + + + | 02/09/ | Office | Neurology | Dhara, | | | 2019 | Visit | | DWAINE Ross [address] | | | | | | [address] [place], | | | | | | [place] [address] | | | | | | [phone] | | | | | | | | +--------+ + + + + documented as of this encounter Visit Diagnoses Not on filedocumented in this encounter"
--- OUTSIDE RECORDS SUMMARY | ~2019-09-30 | XMS | Encounter Summary ---
Demographics + + + | Address | [address] | | | [place] [address] | + + + | Home Phone [...] Team Providers + +------+ + | Care Qm Consultant Name | Role | Phone | [...] Medication Refill | | 2018 | | [facility] | STOPPERER ASSEMBLER | | | | | MEDICAL CLINIC [address] | | | | | | [address]TH [place], | | | | | | [place] [address] | | | | | | [phone] | | | +--------+--------+ + + + [...] | | | | | [place] [address] | | | | | | [phone] | | | | | | | | +--------+ + + + + | 01/29/ | Office | Primary Care | Erika Ernst, | | | 2019 | Visit | | DO [address] [place] | | | | | | [place] [address] | | | | | | [phone] | | | | | | | [...] [place] | | | | | | [address] | | | | | | [phone] | | | | | | | | +--------+ + + + + | 02/09/ | Office | Neurology | Dhara, | | | 2019 | Visit | | DWAINE Ross [address] | | | | | | [address] [place], | | | | | | [place] [address] | | | | | | [phone] | | | | | | | | +--------+ + + + + documented as of this encounter Visit Diagnoses + + | Diagnosis | + + | Depression, unspecified depression type | + + documented in this encounter"
--- OUTSIDE RECORDS SUMMARY | ~2019-09-30 | XMS | Encounter Summary ---
Demographics + + + | Address | [address] | | | [place] [address] | + + + | Home Phone [...] Providers + +------+ + | Care Spring Up Supervisor Name | Role | Phone | [...] | Telephone | [place] [facility] | Erika rEnst, | Medication Refill | | 2019 | | [facility] | [address] | | | | | MEDICAL CLINIC [address] | [facility] [address] | | | | | [address] [facility], | [phone] | | | | | [place] [address] | | | | | | [phone] | | | +--------+ + + + [...] | | | | | [place] [address] | | | | | | [phone] | | | | | | | | +--------+ + + + + | 10/30/ | Office | Primary Care | Erika Ernst, | | | 2019 | Visit | | DO [address] | | | | | | [place] [address] | | | | | | [phone] | | | | | | | [...] [place] | | | | | | [address] | | | | | | [phone] | | | | | | | | +--------+ + + + + | 02/09/ | Office | Neurology | Dhara, | | | 2019 | Visit | | [address] | | | | | [address] [place], | | | | | | [place] [address] | | | | | | [phone] | | | | | | | | +--------+ + + + + documented as of this encounter Visit Diagnoses Not on filedocumented in this encounter"
--- OUTSIDE RECORDS SUMMARY | ~2019-09-30 | XMS | Encounter Summary ---
Demographics + + + | Address | [address] | | | [place] [address] | + + + | Home Phone [...] Team Providers + +------+ + | Care Precision Machine Operator Name | Role | Phone [...] | [place], [place] | [place] [address] | | | | | [address] | [phone] | | | | | [phone] | | | +--------+---------+ + + + [...] right wrist arthroscop y and surgery in [facility]. She continued to have pain [...] E.C.U. Tendon; Surgeon: Inocencio Noriega MD; Location: [facility] RIGHT [...] made to ensure accuracy. However, inadvertent computerized die cast engineer errors may be pre sent. documented in [...] | | | | | [place] [address] | | | | | | [phone] | | | | | | | | +--------+ + + + + | 10/30/ | Office | Primary Care | Erika Ernst, | | | 2019 | Visit | | DO [address] | | | | | | [place] [address] | | | | | | [phone] | | | | | | | [...] [place] | | | | | | [phone] | | | | | | [phone] | | | | | | | | +--------+ + + + + | 02/09/ | Office | Neurology | Dhara, | | | 2019 | Visit | | DWAINE Ross [address] [place], | | | | | | [place] [address] | | | | | | [phone] | | | | | | | | +--------+ + + + + documented as of this encounter Visit Diagnoses + + | Diagnosis | + + | S/P right ECU tenosynovectomy on 03/20/19 - Primary | + + documented in this encounter"
--- OUTSIDE RECORDS SUMMARY | ~2019-09-30 | XMS | Encounter Summary ---
Demographics + + + | Address | [address] | | | [place] [address] | + + + | Home Phone [...] Providers + +------+ + | Care Medical Equipment Sales Name | Role | Phone | [...] 2018 | | [facility] | C, MEDICAL RECEPTIONIST [address] | postoperative wound | | | | CENTER [address] | [address] [place] | check (Primary Dx) | | | | DR [place] | [address] | | | | | [address] | | | | | | [phone] | | | +--------+ + + + [...] | | | | | [place] [address] | | | | | | [phone] | | | | | | | | +--------+ + + + + | 10/30/ | Office | Primary Care | Erika Ernst, | | | 2019 | Visit | | DO [address] [place] | | | | | | [place] [address] | | | | | | [phone] | | | | | | | [...] [place] | | | | | | [address] | | | | | | [phone] | | | | | | | | +--------+ + + + + | 02/09/ | Office | Neurology | Dhara, | | | 2020 | Visit | | [address]WA[address] Ross [address] | | | | | [address] [place], | | | | | | [place] [address] | | | | | | [phone] | | | | | | | [...] C?MRN: | | | | | | [id number] | | | [id number] | | | ecurit | | | [...] | | | St. | | | [place] | | | y H. | | [...] | | | St. | | | [place] | | | y | | | [...]
--- OUTSIDE RECORDS SUMMARY | ~2019-09-30 | XMS | Encounter Summary ---
Demographics + + + | Address | [address] | | | [place] [address] | + + + | Home Phone [...] Providers + +------+ + | Care Laborer Hide House Name | Role | Phone | + [...] | [facility] | [place] [address] | | | | | [address] [place], | [phone] | | | | | [place] [address] | | | | | | [phone] | | | +--------+ + + + [...] | | | | | [place], [place] [address] | | | | | | [phone] | | | | | | | | +--------+ + + + + | 10/30/ | Office | Primary Care | Erika Ernst, | | | 2019 | Visit | | DO [address] [place] [address] | | | | | | [place] [address] | | | | | | [phone] | | | | | | | [...] [place] | | | | | | [address] | | | | | | [phone] | | | | | | | | +--------+ + + + + | 02/09/ | Office | Neurology | Dhara, | | | 2019 | Visit | | [address] | | | | | | [address] [place], | | | | | | [place] [address] | | | | | | [phone] | | | | | | | | +--------+ + + + + documented as of this encounter Visit Diagnoses Not on filedocumented in this encounter"
--- OUTSIDE RECORDS SUMMARY | ~2019-09-30 | XMS | Encounter Summary ---
Demographics + + + | Address | [address] | | | [place] [address] | + + + | Home Phone [...] | [facility] | | | and [...] Team Providers + +------+ + | Care Brasswind Instrument Repairer Name | Role | Phone | + +------+ + PCP | Unavailable | + +------+ + Encounter Details +--------+ + + + + | Date | Type | Department | Care Team | Description | +--------+ + + + + | 11/10/ | [facility] | Caro Zendejas | | | 2015 | Encounter | [facility] | Vale, CONFERENCE DIRECTOR [address] | | | | | [facility] [address] | [facility], [place] | | | | | [address]TH [facility], | [address] | | | | | [place] [address] | [phone] | | | | | [phone] | | | +--------+ + + + [...] | | | | | [place] [address] | | | | | | [phone] | | | | | | | | +--------+ + + + + | 10/30/ | Office | Primary Care | Erika Ernst, | | | 2019 | Visit | | DO [address] | | | | | | [place] [address] | | | | | | [phone] | | | | | | | [...] [place] | | | | | | [address] | | | | | | [phone] | | | | | | | | +--------+ + + + + | 02/09/ | Office | Neurology | Dhara, | | | 2020 | Visit | | [address] | | | | | | [address] [place], | | | | | | [place] [address] | | | | | | [phone] | | | | | | | | +--------+ + + + + documented as of this encounter Visit Diagnoses Not on filedocumented in this encounter"
--- OUTSIDE RECORDS SUMMARY | ~2019-09-30 | XMS | Encounter Summary ---
Demographics + + + | Address | [address] | | | [place] [address] | + + + | Home Phone [...] Team Providers + +------+ + | Care Commercial Manager Name | Role | Phone | [...] | | | | s (de | [place], [place] | [place] [address] | | | | | quervain) | [address] | Phone: | | | | | Pain in | Phone: | [phone] | | | | | right wrist | [phone] | Fax: | | | | | Procedures | Fax: | [phone] | | | | | OT TREAT | [phone] | | +--------+--------+ + + + + [...] | | [address] [place] | [place] [address] | (Primary Dx); Right | | | | [place], [place] | [phone] | wrist pain | | | | [address] | | | | | | [phone] | Nakia Koo OT | | +--------+ [...] | 11/26/19 | | | (VITAMIN D3) 36664 | mouth Once a week | tablet [...] Koo, OT - 12/21/2018 9:31 AM PDT [facility] THERAPY OT [address] [place] [address] Occupational Therapy Progress Assessment Date: 12/21/2018 Patient [...] jar: 3 - 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 vice president jaguar brand (ex ) strengthening exercises. She does still have deficits in consultant luxury and auto. vice president jaguar brand (ex ) strength and wrist stability as well as pain with daily activities. Her arya b description may be changing which would decrease the physical demands of her work, making it more appropriate for her current status. She continues to benefit from Occupational Thera py to maximize her consultant luxury and auto. vice president jaguar brand (ex ) strength and wrist stability following this injury and return her to prior level of function. 10/30/2018 - REASON FOR RE-CERTIFICATION: Andrea has received 12 Occupational Therapy treatme nts since 08/07/2018 following her right wrist surgery. She has regained full AROM of the rig ht wrist but continues to have right wrist, consultant luxury and auto. vice president jaguar brand (ex ) and pinch weakness and significant pain (3- [...] in 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, and consultant luxury and auto. vice president jaguar brand (ex ) and pinch weakness in the right hand [...] Goal 2: The pt will have right consultant luxury and auto. vice president jaguar brand (ex ) strength of 50 lbs by discharge Goal 2 Status: PARTIALLY MET at PN 12/21/2018 -right consultant luxury and auto. vice president jaguar brand (ex ) strength has stayed stable at 24 l bs this month Goal 4: The pt will be independent and compliant with HEP Goal 4 Status: ONGOING - pt reports daily compliance with HEP which includes wrist, consultant luxury and auto. vice president jaguar brand (ex ) an d pinch strengthening as well as general UE strengthening Plan Date of Onset: 07/20/2018 Start of Care Date: 08/07/2018 Requested # of Visits: 24 visits 2x/week for 12 weeks Certification From: 10/30/2018 Certification To: 01/22/2019 Treatment Plan/Interventions OT [id number] - Therapeutic Ptshtbtw91642 - Therapeutic Kqxlulqnkv60918 - Self Care/Ho me Cjhsxrgesd43541 - Manual Loruudb40879 - Orthotic/Prosthetic Gdopluqn99955 - Xvzndvymoa001 34 - Contrast Oexi06640 - Paraffin BathSplinting Moist heat, cold therapy [...] | | | | | [place] [address] | | | | | | [phone] | | | | | | | | +--------+ + + + + | 10/30/ | Office | Primary Care | Erika Ernst, | | | 2019 | Visit | | DO [address] | | | | | | [place] [address] | | | | | | [phone] | | | | | | | [...] [place] | | | | | | [address] | | | | | | [phone] | | | | | | | | +--------+ + + + + | 02/09/ | Office | Neurology | Dhara, | | | 2019 | Visit | | [address]WA[address] | | | | | | [address] [place], | | | | | | [place] [address] | | | | | | [phone] | | | | | | | | +--------+ + + + + documented as of this encounter Visit Diagnoses + + | Diagnosis | + + | Radial styloid tenosynovitis - Primary | + + | Right wrist pain Pain in joint, forearm | + + documented in this encounter"
--- OUTSIDE RECORDS SUMMARY | ~2019-09-30 | XMS | Encounter Summary ---
Demographics + + + | Address | [address] | | | [place] [address] | + + + | Home Phone [...] Providers + +------+ + | Care Web Consultant Name | Role | Phone | [...] | [place] | Erika Ernst, | [place] | | 2019 | | [facility] | DO [address] | | | | | MEDICAL [facility] [address] | [place] [address] | | | | | [address] [place], | [phone] | | | | | [place] [address] | | | | | | [phone] | | | +--------+ + + + [...] | | | | | [place] [address] | | | | | | [phone] | | | | | | | | +--------+ + + + + | 10/30/ | Office | Primary Care | Erika Ernst, | | | 2019 | Visit | | DO [address] | | | | | | [place] [address] | | | | | | [phone] | | | | | | | [...] [place] | | | | | | [address] | | | | | | [phone] | | | | | | | | +--------+ + + + + | 02/09/ | Office | Neurology | Dhara, | | | 2020 | Visit | | [address] | | | | | | [address] [place], | | | | | | [place] [address] | | | | | | [phone] | | | | | | | | +--------+ + + + + documented as of this encounter Visit Diagnoses Not on filedocumented in this encounter"
--- OUTSIDE RECORDS SUMMARY | ~2019-09-30 | XMS | Encounter Summary ---
Demographics + + + | Address | [address] | | | [place] [address] | + + + | Home Phone [...] + +------+ + | Care Community Health Program Coordinator Name | Role | Phone | [...] | | | | s (de | [place], [place] | [place] [address] | | | | | quervain) | [address] | Phone: | | | | | Pain in | Phone: | [phone] | | | | | right wrist | [phone] | Fax: | | | | | Procedures | Fax: | [phone] | | | | | OT TREAT | [phone] | | +--------+--------+ + + + + [...] | | [address] [place] | [place] [address] | (Primary Dx); Right | | | | [place], [place] | [phone] | wrist pain | | | | [address] | | | | | | [phone] | Nakia Koo OT | | +--------+ [...] PST [place] [facility] THERAPY OT [address] [place] [address] Occupational Therapy Daily Treatment Note Date: 10/23/2018 [...] have some deficits in AROM, pinch and marriage and family social worker strength. She has returned to modified work [...] pt has made progress with her R marriage and family social worker strength, but is still experiencing activity limiting [...] in 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, and marriage and family social worker and pinch weakness in the right [...] | | | | | [place] [address] | | | | | | [phone] | | | | | | | | +--------+ + + + + | 10/30/ | Office | Primary Care | Erika Ernst, | | | 2019 | Visit | | DO [address] [place] | | | | | | [place] [address] | | | | | | [phone] | | | | | | | [...] [place] | | | | | | [address] | | | | | | [phone] | | | | | | | | +--------+ + + + + | 02/09/ | Office | Neurology | Dhara, | | | 2020 | Visit | | [address] | | | | | | 4TH [facility], | | | | | | [place] [address] | | | | | | [phone] | | | | | | | | +--------+ + + + + documented as of this encounter Visit Diagnoses + + | Diagnosis | + + | Radial styloid tenosynovitis - Primary | + + | Right wrist pain Pain in joint, forearm | + + documented in this encounter
--- OUTSIDE RECORDS SUMMARY | ~2019-09-30 | XMS | Encounter Summary ---
Demographics + + + | Address | [address] | | | [place] [address] | + + + | Home Phone [...] Providers + +------+ + | Care Manufacturing Operations Manager Name | Role | Phone [...] | [facility] [address] | (Primary Dx); | | | | [address] [place], | [phone] | Asthma due to | | | | [place] [address] | | environmental | | | | [phone] | | allergies | +--------+---------+ + + [...] daily. 1 Inhaler 11 Cholecalciferol (VITAMIN D3) 93553 units TABS Take 1 tablet by mouth [...] | | | | | [place] [address] | | | | | | [phone] | | | | | | | | +--------+ + + + + | 10/30/ | Office | Primary Care | Erika Ernst, | | | 2019 | Visit | | DO [address] [facility] [place] | | | | | | [place] [address] | | | | | | [phone] | | | | | | | [...] [place] | | | | | | [address] | | | | | | [phone] | | | | | | | | +--------+ + + + + | 02/09/ | Office | Neurology | Dhara, | | | 2019 | Visit | | [address] | | | | | | 4TH [facility] [place], | | | | | | [place] [address] | | | | | | [phone] | | | | | | | | +--------+ + + + + documented as of this encounter Visit Diagnoses + + | Diagnosis | + + | Acute bronchitis, unspecified organism - Primary | + + | Asthma due to environmental allergies | + + documented in this encounter
--- OUTSIDE RECORDS SUMMARY | ~2019-09-30 | XMS | Encounter Summary ---
Demographics + + + | Address | [address] | | | [place] [address] | + + + | Home Phone [...] Team Providers + +------+ + | Care Curing Supervisor Name | Role | Phone | [...] | [place], [place] | [place] [address] | | | | | [address] | [phone] | | | | | [phone] | | | +--------+ + + + [...] | | | | | [place] [address] | | | | | | [phone] | | | | | | | | +--------+ + + + + | 10/30/ | Office | Primary Care | Erika Ernst, | | | 2019 | Visit | | DO [address] | | | | | | [place] [address] | | | | | | [phone] | | | | | | | [...] [place] | | | | | | [address] | | | | | | [phone] | | | | | | | | +--------+ + + + + | 02/09/ | Office | Neurology | Dhara, | | | 2020 | Visit | | [address] | | | | | | [address] [place], | | | | | | [place] [address] | | | | | | [phone] | | | | | | | | +--------+ + + + + documented as of this encounter Visit Diagnoses Not on filedocumented in this encounter"
--- OUTSIDE RECORDS SUMMARY | ~2019-09-30 | XMS | Encounter Summary ---
Demographics + + + | Address | [address] | | | [place] [address] | + + + | Home Phone [...] Team Providers + +------+ + | Care Preventative Maintenance Technician Name | Role | Phone [...] [place] | | | | | [place] [address] | [address] | | | | | [phone] | [phone] | | | | | | | [...] | | | | | [place] [address] | | | | | | [phone] | | | | | | | | +--------+ + + + + | 10/30/ | Office | Primary Care | Erika Ernst, | | | 2019 | Visit | | DO [address] [place] | | | | | | [place] [address] | | | | | | [phone] | | | | | | | [...] [place] | | | | | | [address] | | | | | | [phone] | | | | | | | | +--------+ + + + + | 02/09/ | Office | Neurology | Dhara, | | | 2019 | Visit | | [address] | | | | | | [address] [place], | | | | | | [place] [address] | | | | | | [phone] | | | | | | | | +--------+ + + + + documented as of this encounter Visit Diagnoses Not on filedocumented in this encounter"
--- OUTSIDE RECORDS SUMMARY | ~2019-09-30 | XMS | Encounter Summary ---
Demographics + + + | Address | [address] | | | [place] [address] | + + + | Home Phone [...] Providers + +------+ + | Care Manager Oracle Name | Role | Phone | + [...] | | | of left | [place] [address] | [address] | | | | | ankle, | Phone: | Phone: | | | | | subsequent | [phone] | [phone] | | | | | encounter | Fax: | Fax: | | | | | Procedures | [phone] | [phone] | | | | | MRI Foot | | | | | | | Left wo | | | | | | | Contrast | | | +--------+--------+ + + + + Encounter Details +--------+ + + + + | Date | Type | Department | Care Team | Description | +--------+ + + + + | 11/01/ | Hospital | [place] [facility] | Erika Ernst, | Sprain of | | 2019 | Encounter | Hospital MRI [address] | DO [address] | calcaneofibular | | | | [address] [place] | [place] [address] | ligament of left | | | | [place], [place] | [phone] | ankle, subsequent | | | | [address] | | encounter | | | | [phone] | | | +--------+ + + + [...] | 19 | 9 | | [id number]) | | | | | | | [...] | | | | | [place] [address] | | | | | | [phone] | | | | | | | | +--------+ + + + + | 10/30/ | Office | Primary Care | Erika Ernst, | | | 2019 | Visit | | DO [address] [place] | | | | | | [place] [address] | | | | | | [phone] | | | | | | | [...] [place] | | | | | | [address] | | | | | | [phone] | | | | | | | | +--------+ + + + + | 02/09/ | Office | Neurology | Dhara, | | | 2019 | Visit | | [address] | | | | [address] [place], | | | | | | [place] [address] | | | | | | [phone] | | | | | | | | +--------+ + + + + documented as of this encounter Visit Diagnoses + + | Diagnosis | + + | Sprain of calcaneofibular ligament of left ankle, subsequent encounter | + + documented in this encounter"
--- OUTSIDE RECORDS SUMMARY | ~2019-09-30 | XMS | Encounter Summary ---
Demographics + + + | Address | [address] | | | [place] [address] | + + + | Home Phone [...] Providers + +------+ + | Care Special Effects Technician Name | Role | Phone | [...] Telephone | [place] [facility] | Keith Ernstleslie Satler, | Cough | | 2019 | | [facility] | DO [address] | | | | | MEDICAL CLIN[facility] [address] | [place] [address] | | | | | [address] [place], | [phone] | | | | | [place] [address] | | | | | | [phone] | | | +--------+ + + + [...] | | | | | [place] [address] | | | | | | [phone] | | | | | | | | +--------+ + + + + | 10/30/ | Office | Primary Care | Erika Ernst, | | | 2019 | Visit | | DO [address] | | | | | | [place] [address] | | | | | | [phone] | | | | | | | [...] [place] | | | | | | [address] | | | | | | [phone] | | | | | | | | +--------+ + + + + | 02/09/ | Office | Neurology | Dhara, | | | 2020 | Visit | | [address]WA[address] | | | | | [address] [place], | | | | | | [place] [address] | | | | | | [phone] | | | | | | | | +--------+ + + + + documented as of this encounter Visit Diagnoses Not on filedocumented in this encounter"
--- OUTSIDE RECORDS SUMMARY | ~2019-09-30 | XMS | Encounter Summary ---
Demographics + + + | Address | [address] | | | [place] [address] | + + + | Home Phone [...] Team Providers + +------+ + | Care Fieldwork Coordinator Name | Role | Phone | [...] [place] | | | | | | [address] | | | | | | [phone] | | | +--------+ + + + [...] | | | | | [place] [address] | | | | | | [phone] | | | | | | | | +--------+ + + + + | 10/30/ | Office | Primary Care | Erika Ernst, | | | 2019 | Visit | | DO [address] | | | | | | [place] [address] | | | | | | [phone] | | | | | | | [...] [place] | | | | | | [address] | | | | | | [phone] | | | | | | | | +--------+ + + + + | 02/09/ | Office | Neurology | Dhara, | | | 2019 | Visit | | Karyanne, REST[employer]ER [employer] [address] | | | | | | [address] [place], | | | | | | [place] [address] | | | | | | [phone] | | | | | | | | +--------+ + + + + documented as of this encounter Visit Diagnoses Not on filedocumented in this encounter"
--- OUTSIDE RECORDS SUMMARY | ~2019-09-30 | XMS | Encounter Summary ---
Demographics + + + | Address | [address] | | | [place] [address] | + + + | Home Phone [...] Providers + +------+ + | Care Senior Reservoir Engineer Name | Role | Phone | [...] | | | | [place], [place] | [address] | (Primary Dx); | | | | [address] | [phone] | Deviated nasal | | | | [phone] | | septum | +--------+---------+ + + [...] Clinic Note For: Andrea Suh 28 y.o. [id number] On 04/16/2019, Andrea Suh was seen by [...] of having started traci rgy immunotherapy in [place]. She apparently started this in November 2018. [...] mouth. Once a week Cholecalciferol (VITAMIN D3) 39766 units TABS Take 1 tablet by mouth [...] her neck reveals no periparotid or cervical [id number] ASSESSMENT: Patient has severe temporomandibular joint dysfunction [...] | | | | | [place] [address] | | | | | | [phone] | | | | | | | | +--------+ + + + + | 10/30/ | Office | Primary Care | Erika Ernst, | | | 2019 | Visit | | DO [address] [place] | | | | | | [place] [address] | | | | | | [phone] | | | | | | | [...] [place] | | | | | | [address] | | | | | | [phone] | | | | | | | | +--------+ + + + + | 02/09/ | Office | Neurology | Dhara, | | | 2019 | Visit | | [address] | | | | | [address] [place], | | | | | | [place] [address] | | | | | | [phone] | | | | | | | | +--------+ + + + + documented as of this encounter Visit Diagnoses + + | Diagnosis | + + | Non-seasonal allergic rhinitis due to pollen - Primary | + + | Deviated nasal septum | + + documented in this encounter"
--- OUTSIDE RECORDS SUMMARY | ~2019-09-30 | XMS | Encounter Summary ---
Demographics + + + | Address | [address] | | | [place] [address] | + + + | Home Phone [...] Team Providers + +------+ + | Care Nanotechnology Engineering Technician Name | Role | Phone | [...] | [address] [place], [place] | [place] [address] | | | | | [address] | [phone] | | | | | [phone] | | | +--------+ + + + [...] | | | | | [place] [address] | | | | | | [phone] | | | | | | | | +--------+ + + + + | 10/30/ | Office | Primary Care | Erika Ernst, | | | 2019 | Visit | | DO [address] [place] | | | | | | [place] [address] | | | | | | [phone] | | | | | | | [...] [place] | | | | | | [address] | | | | | | [phone] | | | | | | | | +--------+ + + + + | 02/09/ | Office | Neurology | Dhara, | | | 2020 | Visit | | [address]WA[address] | | | [address] [place], | | | | | | [place] [address] | | | | | | [phone] | | | | | | | | +--------+ + + + + documented as of this encounter Visit Diagnoses Not on filedocumented in this encounter"
--- OUTSIDE RECORDS SUMMARY | ~2019-09-30 | XMS | Encounter Summary ---
Demographics + + + | Address | [address] | | | [place] [address] | + + + | Home Phone [...] Providers + +------+ + | Care Supervisor Tumblers Name | Role | Phone | + [...] | Services | | Neuropathy | C, SALES PROMOTION REPRESENTATIVE [address] | Luis Rubin MD | | | Required | | of right | [address], | [address] | | | | | upper | [address] [place] | [address] [address] [place] | | | | | extremity | [place], [place] | [place] | | | | | Procedures | [address] | [address] Phone: | | | | | EMG | Phone: | [phone] | | | | | | [phone] | Fax: | | | | | | Fax: | [phone] | | | | | | [phone] | | +--------+ + + + + [...] | Numbness | | | | [place] [address] | | | | | | [phone] | | | +--------+ + + + [...] | | | | | [place] [address] | | | | | | [phone] | | | | | | | | +--------+ + + + + | 10/30/ | Office | Primary Care | Erika Ernst, | | | 2019 | Visit | | DO [address] | | | | | | [place] [address] | | | | | | [phone] | | | | | | | [...] [place] | | | | | | [address] | | | | | | [phone] | | | | | | | | +--------+ + + + + | 02/09/ | Office | Neurology | Dhara, | | | 2019 | Visit | | [address] | | | | | [address] [place], | | | | | | [place] [address] | | | | | | [phone] | | | | | | | [...]
--- OUTSIDE RECORDS SUMMARY | ~2019-09-30 | XMS | Encounter Summary ---
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 Subjective: HPI: Patient presents to the [facility] for migraine. Yesterday morning she woke up [...] normal. Entered by Marissa Bautista CNA 2, [facility], acting as scribe for Brandi Pitts DO. The documentation recorded by the scribe accurately reflects the service I personally perfo [facility] and the decisions made by me. Electronically signed by: Brandi Pitts DO 08/21/2019 9:33 AM Note: Part of this report was transcribed using voice recognition software. Every effort wa s made to ensure accuracy. However, inadvertent computerized veteran appeals reviewer errors may be pre sent. documented in [...] | | | | | [place] [address] | | | | | | [phone] | | | | | | | | +--------+ + + + + | 10/30/ | Office | Primary Care | Erika Ernst, | | | 2019 | Visit | | DO [address] | | | | | | [place] [address] | | | | | | [phone] | | | | | | | [...] [place] | | | | | | [address] | | | | | | [phone] | | | | | | | | +--------+ + + + + | 02/09/ | Office | Neurology | Dhara, | | | 2019 | Visit | | [address] | | | | | [address] [place], | | | | | | [place] [address] | | | | | | [phone] | | | | | | | [...]
--- OUTSIDE RECORDS SUMMARY | ~2019-09-30 | XMS | Encounter Summary ---
Demographics + + + | Address | [address] | | | [place] [address] | + + + | Home Phone [...] Providers + +------+ + | Care Web Analytics Developer Name | Role | Phone | [...] Results | | 2018 | | [facility] | [address] OF [address] CLEARER | | | | | MEDICAL CLINIC [address] | | | | | | [address]TH [facility] [place], | | | | | | [place] [address] | | | | | | [phone] | | | +--------+ + + + [...] | | | | | [place] [address] | | | | | | [phone] | | | | | | | | +--------+ + + + + | 10/30/ | Office | Primary Care | Erika Ernst, | | | 2019 | Visit | | DO [address] | | | | | | [place] [address] | | | | | | [phone] | | | | | | | [...] [place] | | | | | | [address] | | | | | | [phone] | | | | | | | | +--------+ + + + + | 02/09/ | Office | Neurology | Dhara, | | | 2019 | Visit | | [address] | | | | | | [address] [place], | | | | | | [place] [address] | | | | | | [phone] | | | | | | | | +--------+ + + + + documented as of this encounter Visit Diagnoses Not on filedocumented in this encounter"
--- OUTSIDE RECORDS SUMMARY | ~2019-09-30 | XMS | Encounter Summary ---
Demographics + + + | Address | [address] | | | [place] [address] | + + + | Home Phone [...] Providers + +------+ + | Care Underwriting Support Manager Name | Role | Phone [...] | Other | | 2018 | | [facility] | BAKARI Chapin | | | | | [address] | | | | | | [place] | | | | | | [address] | | | | | | [phone] | | | +--------+ + + + [...] | | | | | [place] [address] | | | | | | [phone] | | | | | | | | +--------+ + + + + | 10/30/ | Office | Primary Care | Erika Ernst, | | | 2019 | Visit | | DO [address] | | | | | | [place] [address] | | | | | | [phone] | | | | | | | [...] [place] | | | | | | [address] | | | | | | [phone] | | | | | | | | +--------+ + + + + | 02/09/ | Office | Neurology | Dhara, | | | 2019 | Visit | | [address] | | | | | | [address] [place], | | | | | | [place] [address] | | | | | | [phone] | | | | | | | | +--------+ + + + + documented as of this encounter Visit Diagnoses Not on filedocumented in this encounter"
--- OUTSIDE RECORDS SUMMARY | ~2019-09-30 | XMS | Encounter Summary ---
Demographics + + + | Address | [address] | | | [place] [address] | + + + | Home Phone [...] + +------+ + | Care Heavy Equipment Operating Engineer Name | Role | Phone | [...] MEDICAL CLINIC [address] | [place] [place] [address] | | | | | [address] [facility], | [phone] | | | | | [place] [address] | | | | | | [phone] | | | +--------+ + + + [...] | | | | | [place] [address] | | | | | | [phone] | | | | | | | | +--------+ + + + + | 10/30/ | Office | Primary Care | Erika Ernst, | | | 2019 | Visit | | DO [address] [place] [address] | | | | | | [place] [address] | | | | | | [phone] | | | | | | | [...] [place] | | | | | | [address] | | | | | | [phone] | | | | | | | | +--------+ + + + + | 02/09/ | Office | Neurology | Dhara, | | | 2019 | Visit | | [address] | | | | | | [address] [place], | | | | | | [place] [address] | | | | | | [phone] | | | | | | | | +--------+ + + + + documented as of this encounter Visit Diagnoses Not on filedocumented in this encounter"
--- OUTSIDE RECORDS SUMMARY | ~2019-09-30 | XMS | Encounter Summary ---
Demographics + + + | Address | [address] | | | [place] [address] | + + + | Home Phone [...] Providers + +------+ + | Care Jacquard Card Cutter Name | Role | Phone | + +------+ + PCP | Unavailable | + +------+ + Encounter Details +--------+ + + + + | Date | Type | Department | Care Team | Description | +--------+ + + + + | 11/12/ | [facility] | Caro Zendejas | | | 2013 | Encounter | [facility] | Vale, RADIO TELEVISION ANNOUNCER [address] | | | | | MEDICAL CLINIC [address] | [facility], [place] | | | | | [address]TH [facility], | [address] | | | | | [place] [address] | [phone] | | | | | [phone] | | | +--------+ + + + [...] | | | | | [place] [address] | | | | | | [phone] | | | | | | | | +--------+ + + + + | 10/30/ | Office | Primary Care | Erika Ernst, | | | 2019 | Visit | | DO [address] | | | | | | [place] [address] | | | | | | [phone] | | | | | | | [...] [place] | | | | | | [address] | | | | | | [phone] | | | | | | | | +--------+ + + + + | 02/09/ | Office | Neurology | Dhara, | | | 2020 | Visit | | [address] | | | | [address] [place], | | | | | | [place] [address] | | | | | | [phone] | | | | | | | | +--------+ + + + + documented as of this encounter Visit Diagnoses Not on filedocumented in this encounter"
--- OUTSIDE RECORDS SUMMARY | ~2019-09-30 | XMS | Encounter Summary ---
Demographics + + + | Address | [address] | | | [place] [address] | + + + | Home Phone [...] Providers + +------+ + | Care Manager Style Name | Role | Phone | + [...] Results | | 2018 | | [facility] | CHANNEL MARKETING SPECIALIST | | | | | MEDICAL CLINIC [address] | | | | | | 4TH [facility] [place], | | | | | | [place] [address] | | | | | | [phone] | | | +--------+ + + + [...] | | | | | | [place] [address] | | | | | | [phone] | | | | | | | | +--------+ + + + + | 10/30/ | Office | Primary Care | Erika Ernst, | | | 2019 | Visit | | DO [address] | | | | | | [place] [address] | | | | | | [phone] | | | | | | | [...] [place] | | | | | | [address] | | | | | | [phone] | | | | | | | | +--------+ + + + + | 02/09/ | Office | Neurology | Dhara, | | | 2019 | Visit | | [address] | | | | | | [address] [place], | | | | | | [place] [address] | | | | | | [phone] | | | | | | | | +--------+ + + + + documented as of this encounter Visit Diagnoses Not on filedocumented in this encounter"
--- OUTSIDE RECORDS SUMMARY | ~2019-09-30 | XMS | Encounter Summary ---
Demographics + + + | Address | [address] | | | [place] [address] | + + + | Home Phone [...] Providers + +------+ + | Care Creative Resource Manager Name | Role | Phone | [...] persistent | | 2019 | Visit | [facility] | REGULATORY AFFAIRS ANALYST-SKIN FORMER [address] | asthma with acute | | | | W[facility]IN CL[facility] [address] | [address] | exacerbation | | | | [address] [place], | [place] [address] | (Primary Dx) | | | | [place] [address] | [phone] | | | | | [phone] | | | +--------+---------+ + + + [...] and as needed inhalers Follow-up with your career center director as planned/needed If your symptoms persist or you develop fever, chest pain or shortness of breath follow up immediately for reevaluation. documented in this encounter Progress Notes Alem Guerrero, REGULATORY AFFAIRS ANALYST-SKIN FORMER - 07/01/2019 10:30 AM PDTFormatting of this [...] a fever/chills, n/v/d Says she saw her career center director last and he took her off the [...] mouth. Once a week Cholecalciferol (VITAMIN D3) 28307 units TABS Take 1 tablet by mouth [...] and as needed inhalers Follow-up with your career center director as planned/needed If your symptoms persist or you develop fever, chest pain or shortness of breath follow up immediately for reevaluation. Return if symptoms worsen or fail to improve, for with pcp. Electronically signed by: Alem Guerrero [id number]/201913:[id number] [facility] Walk-in [facility] Note: Part of this report was transcribed using voice recognition software. Every effort wa s made to ensure accuracy. However, inadvertent computerized ip technology transactions attorney errors may be pre sent. Linh rubin [...] | | | | | [place] [address] | | | | | | [phone] | | | | | | | | +--------+ + + + + | 10/30/ | Office | Primary Care | Erika Ernst, | | | 2019 | Visit | | DO [address] | | | | | | [place] [address] | | | | | | [phone] | | | | | | | [...] [place] | | | | | | [address] | | | | | | [phone] | | | | | | | | +--------+ + + + + | 02/09/ | Office | Neurology | Dhara, | | | 2019 | Visit | | [address] | | | | | | [address] [place], | | | | | | [place] [address] | | | | | | [phone] | | | | | | | [...]
[~2019-09-30 00:47] MED LIST changes: +BUSPIRONE HCL5 MG PO; +NAPROXEN SODIU500 MG PO
--- OUTSIDE RECORDS SUMMARY | 2019-09-30 00:50 | XMS ---
PreManage Notification: ZENY GRULLON [employer] Transactions Attorney Events No recent Security Events currently on file CRITERIA MET - 6 ED Visits in 6 Months - [facility] - 3 Facilities in 90 Days - PDMP - [facility] - 2 Visits in 30 Days CARE PROVIDERS BETSY BONILLA Family Medicine: Geriatric Medicine Current PHONE: Unknown Eloina Baxter Family [facility] Rubio Chan MD PHONE: Unknown BETSY BONILLA Primary [facility] Current PHONE: [phone] Eloina Baxter Primary [facility] Rubio Chan MD PHONE: Unknown Shruthi Landeros Primary Care Current PHONE: [phone] Alhaji has no Care Guidelines for this patient. EDelvin VISIT COUNT ([address] [facility] Ev Stover 1 CHENCHO Knight TOTAL 11 NOTE: Visits indicate total known visits. ED/UCC VISIT TRACKING (12 MO.) 09/30/2019 00:48 [facility] [place] TYPE: Emergency COMPLAINT: - LEFT LEG LAC 09/09/2019 12:54 [facility] [place] TYPE: Emergency DIAGNOSES: - difficulty breathing - Other diseases of pharynx - Shortness of Breath 08/22/2019 17:28 [place] TYPE: Emergency DIAGNOSES: - Vomiting, unspecified - Nausea, post migraine - Acute cystitis without hematuria - Nausea 08/15/2019 20[facility] [place] TYPE: Emergency DIAGNOSES: 0. WRIST PAIN 06/13/2019 17:15 [place] TYPE: Emergency DIAGNOSES: - Hand Injury - Contusion of right hand, initial encounter 05/10/2019 22:29 [place] TYPE: Emergency DIAGNOSES: - Ankle Injury - left ankle and right wrist pain - Pain in right wrist - Pain in left ankle and joints of left foot - Wrist Injury 04/26/2019 09:41 [place] TYPE: Emergency DIAGNOSES: - Cast came off - Encounter for other orthopedic aftercare - Cast Problem 04/21/2019 16:30 [place] TYPE: Emergency DIAGNOSES: - Anxiety disorder, unspecified - Shortness of Breath - Unspecified asthma, uncomplicated - Other seasonal allergic rhinitis 04/07/2019 15:46 [facility] [place] TYPE: Emergency DIAGNOSES: 0. INCISION WET NEED REBANDAGED 02/02/2019 13:59 [facility] [place] TYPE: Emergency DIAGNOSES: - Other chronic pain - Left Foot Pain - Pain in right foot - Foot Pain 11/28/2018 15:07 [facility] [place] TYPE: Emergency DIAGNOSES: - Low Blood Pressure INPATIENT VISIT TRACKING (12 MO.) No inpatient visits to display in this time frame [email or web address]
[2019-09-30] MEDS ORDERED: MINIPRESS1 MG PO (01:03)
[2019-09-30] MEDS ORDERED: LEVOTHYROXINE50 MCG PO (01:03)
[2019-09-30] MEDS ORDERED: CHILDREN'S15 MG/1 ML PO (01:03)
[2019-09-30] MEDS ORDERED: COMBIVENT RESPIM4 GM INH (01:04)
[2019-09-30] MEDS ORDERED: DULERA 200 MCG/13 GM INH (01:04)
[2019-09-30] MEDS ORDERED: CIPRO500 MG PO (01:05)
[2019-09-30] MEDS ORDERED: ONDANSETRON ODT4 MG PO (01:06)
[2019-09-30] MEDS ORDERED: ULTRAM50 MG PO (01:07)
[2019-09-30] MEDS ORDERED: ALBUTEROL2.5 MG/3 M INH (01:07)
[2019-09-30] MEDS ORDERED: CEFDINIR300 MG PO (01:08)
[2019-09-30] MEDS ORDERED: MONTELUKAST SOD10 MG PO (01:08)
[2019-09-30] MEDS ORDERED: GUAIFENESIN-CO473 ML PO (01:08)
[2019-09-30] MEDS ORDERED: MECLIZINE HCL12.5 MG PO (01:10)
== END 2019-09-30 01:35 | disposition home or self-care (01) ==
LOC: ED 00:47
DX: S81.811A Laceration without foreign body, right lower leg, initial encounter (principal)

== ENCOUNTER 2020-02-18 22:02 | Emergency (ER) | payer OTHER ==
[~2020-02-18] VITALS: Ht 177.8 cm; Wt 154.2 kg
--- OUTSIDE RECORDS SUMMARY | ~2020-02-18 | XMS | Encounter Summary ---
Demographics + + + | Address | [address] | | | [place] [address] | + + + | Home Phone | | + + + | Preferred Language | Unknown | + + + | Marital Status | Single | + + + | Jew Affiliation | Unknown | + + + | Race | Unknown | + + + | Ethnic Group | Unknown | + + + Author + + + | Author | [facility] | | | and [place] | + + + | Organization | [facility] | | | [...] Team Providers + +------+ + | Care Home Demonstration Agent Name | Role | Phone | + +------+ + | Erika Ernst DO | PCP | | + +------+ + Reason for Visit + + + | Reason | Comments | + + + | Medication Follow-up | Trazadone | + + + Encounter Details +--------+ + + + + | Date | Type | Department | Care Team | Description | +--------+ + + + + | 04/29/ | Telephone | [place] [facility] | Erika Ernst, | Medication Follow-up | | 2019 | | [facility] | DO [address] | (Trazadone) | | | | MEDICAL CLINIC [address] | [facility] [place] [address] | | | | | [address] [facility], | [phone] | | | | | [place] [address] | | | | | | [phone] | | | +--------+ + + + [...] | +--------+ + + + + | 02/18/ | Appointment | Rehabilitation | Erika Ernst, | | | 2019 | | | DO [address] | | | | | | [place] [address] | | | | | | [phone] | | | | | | | | | | | | Julia Fisher, | | | | | | PT | | +--------+ + + + + | 02/18/ | Appointment | Rehabilitation | Erika Ernst, | | | 2019 | | | DO [address] | | | | | | [place] [address] | | | | | | [phone] | | | | | | | | | | | | Genesis Ayon, OT | | +--------+ + + + + | 02/25/ | Office | Primary Care | Erika Ernst, | | | 2019 | Visit | | DO [address] | | | | | | [place] [address] | | | | | | [phone] | | | | | | | | +--------+ + + + + | 02/25/ | Appointment | Rehabilitation | Genesis Ayon, SUSAN | | | 2019 | | | | | +--------+ + + + + | 02/26/ | Virtual | Rehabilitation | Usha Rodriguez | | | 2019 | Office | | MD Precious [address] | | | | Visit | | [address] [place] | | | | | | [place] [address] | | | | | | [phone] | | | | | | | | +--------+ + + + + | 02/27/ | Appointment | Radiology | Dhara, | | | 2019 | | | [address] | | | | | | 4TH [facility], | | | | | | [place] [address] | | | | | | [phone] | | | | | | | | +--------+ + + + + | 03/04/ | Appointment | Rehabilitation | Genesis Ayon OT | | | 2019 | | | | | +--------+ + + + + | 03/09/ | Office | Orthopedic Surgery | Jeffrey Gandhi, | | | 2019 | Visit | | [address] [facility] | | | | | | [place] [address] | | | | | | [phone] | | | | | | | | +--------+ + + + + | 03/11/ | Appointment | Rehabilitation | Genesis Ayon OT | | | 2019 | | | | | +--------+ + + + + | 03/18/ | Appointment | Rehabilitation | Genesis Ayon OT | | 2019 | | | | | +--------+ + + + + | 03/19/ | Office | Obstetrics and | Emily Avery | | | 2019 | Visit | Gynecology | DO Jackelyn Garcia | | | | | | [address] | | | | | | [place] | | | | | | [address] | | | | | | [phone] | | | | | | | | +--------+ + + + + | 03/25/ | Appointment | Rehabilitation | Genesis Ayon OT | | | 2019 | | | | | +--------+ + + + + | 04/08/ | Office | Neurology | Erika Ernst, | | | 2019 | Visit | | DO [address] | | | | | | [place] [address] | | | | | | [phone] | | | | | | | | | | | | Azul Yeboah, | | | | | | MD [address] | | | | | | [place] | | | | | | [place] [address] | | | | | | [phone] | | | | | | | | +--------+ + + + + | 04/08/ | Appointment | Nutrition | Janel Webster | | | 2019 | | | [place] | | +--------+ + + + + | 05/21/ | Office | Neurology | Dhara, | | | 2020 | Visit | | [address] | | | | | [address] [place], | | | | | | [place] [address] | | | | | | [phone] | | | | | | | | +--------+ + + + + documented as of this encounter Visit Diagnoses Not on filedocumented in this encounter"
--- OUTSIDE RECORDS SUMMARY | ~2020-02-18 | XMS | Encounter Summary ---
Demographics + + + | Address | [address] | | | [place] [address] | + + + | Home Phone | | + + + | Preferred Language | Unknown | + + + | Marital Status | Single | + + + | Latter Day Affiliation | Unknown | + + + | Race | Unknown | + + + | Ethnic Group | Unknown | + + + Author + + + | Author | [facility] | | | and [place] | + + + | Organization | [facility] | | [...] Team Providers + +------+ + | Care Nurse Practitioner Physician Assistant Name | Role | Phone | + +------+ + | Erika Ernst DO | PCP | | + +------+ + Reason for Visit + + + | Reason | Comments | + + + | Follow-up | meds | + + + Encounter Details +--------+---------+ + + + | Date | Type | Department | Care Team | Description | +--------+---------+ + + + | 09/12/ | Office | [facility] [facility] | Erika Ernst, | Essential | | 2018 | Visit | [facility] | DO [address] | hypertension | | | | [facility] | [place] [address] | (Primary Dx); | | | | [address] [place], | [phone] | Depression, | | | | [place] [address] | | unspecified | | | | [phone] | | depression type; | | | | | | Anxiety; Asthma due | | | | | | to environmental | | | | | | allergies | +--------+---------+ + + + Social History + +-------+ [...] + + documented as of this encounter Last Filed Vital Signs + + + + + | Vital Sign | Reading | Time Taken | Comments | + + + + + | Blood Pressure | 130/100 | 09/12/2018 2:20 PM | | | | | PST | | + + + + + | Pulse | 95 | 09/12/2018 2:20 PM | | | | | PST | | + + + + + | Temperature | - | - | | + + + + + | Respiratory Rate | 20 | 09/12/2018 2:20 PM | | | | | PST | | + + + + + | Oxygen Saturation | 100% | 09/12/2018 2:20 PM | | | | | PST | | + + + + + | Inhaled Oxygen | - | - | | | Concentration | | | | + + + + + | Weight | 154.2 kg (340 lb) | 09/12/2018 2:20 PM | | | | | PST | | + + + + + | Height | 177.8 cm (5' 10") | 09/12/2018 2:20 PM | | | | | PST | | + + + + + | Body Mass Index | 48.78 | 09/12/2018 2:20 PM | | | | | PST | | + + + + + documented in this encounter Progress Notes Erika Ernst DO - 09/12/2018 2:30 PM PSTFormatting of this note might be different fro m the original. Subjective: Patient ID: Andrea Suh is a 28 y.o. female. Here to FU on HTN. We started toprol XL last visit and she is tolerating the med well. Some improvement in HTN but still elevated and HR 95. She had a asthma flair last week and went to the ER in [place] and had a steroid injection. She is controlled now and continues with her inhalers. When here last visit she had oral thrush that is now resolved with the nystat in we used. She has anxiety and depression and is still seeing Emeka Gillis for therapy and last visit we increased her buspar dose. She states this has helped and no severe panic attacks since the med increase. She feels like today the dose is jonel enough. Review of Systems Constitutional: Negative. Respiratory: Negative for chest tightness, shortness of breath and wheezing. Cardiovascular: Negative. Gastrointestinal: Negative. Psychiatric/Behavioral: Negative. Social History Social History Marital status: Single Spouse name: N/A Number of children: N/A Years of education: N/A Occupational History Not on file. Social History Main Topics Smoking status: Never Smoker Smokeless tobacco: Never Used Alcohol use No Drug use: No Sexual activity: Yes control/ protection: Condom Other Topics Concern Not on file Social History Narrative No narrative on file Outpatient Encounter Prescriptions as of 09/12/2018 Medication Sig Dispense Refill albuterol-ipratropium (COMBIVENT RESPIMAT) 100-20 mcg/puff inhaler Inhale 1 puff into t he lungs every 4 hours as needed for Shortness of Breath. 1 Inhaler 5 amLODIPine (NORVASC) 10 MG tablet Take 1 tablet by mouth Daily. 30 tablet 11 beclomethasone (QVAR) 80 mcg/puff inhaler 4 puffs BID 1 Inhaler 11 budesonide-formoterol (SYMBICORT) 160-4.5 mcg/puff inhaler Inhale 2 puffs into the lung s 2 times daily. busPIRone (BUSPAR) 10 MG tablet Take 10 mg TID 90 tablet 11 diphenhydrAMINE (BENADRYL) 25 MG capsule Take 25 mg by mouth nightly as needed for Itch ing. fluticasone (FLONASE) 50 mcg/nasal spray 1 spray by Nasal route Daily. metoprolol succinate (TOPROL-XL) 100 mg ER tablet Take 1 tablet by mouth Daily. 30 tabl et 11 [DISCONTINUED] metoprolol succinate (TOPROL-XL) 50 mg 24 hr tablet Take 1 tablet by codi th Daily. 30 tablet 11 montelukast (SINGULAIR) 10 mg tablet Take 1 tablet by mouth nightly. 30 tablet 11 nystatin (MYCOSTATIN) 100,000 units/mL suspension Swish and swallow 5 ml four times blanco ly up to 48 hours after symptoms resolve Indications: Candidiasis Fungal Infection of the O ropharynx 180 mL 1 No facility-administered encounter medications on file as of 09/12/2018. Allergies Allergen Reactions Escitalopram Palpitations Latex Rash Hydrocodone Hives Oxycodone Uncoded Nonscreenable Allergen Other (See Comments) Other reaction(s): Proclivity to C-diff with certain antibiotics Adhesive & Tape Rash Objective: BP (!) 130/100 | Pulse 95 | Resp 20 | Ht 1.778 m (5' 10") | Wt (!) 154.2 kg (340 lb) | LMP 08/24/2018 | SpO2 100% | ? No | BMI 48.78 kg/m Physical Exam Constitutional: She is oriented to person, place, and time. She appears well-developed and well-nourished. No distress. HENT: Head: Normocephalic and atraumatic. Right Ear: External ear normal. Left Ear: External ear normal. Mouth/Throat: Oropharynx is clear and moist. No oropharyngeal exudate. Eyes: Pupils are equal, round, and reactive to light. Conjunctivae and EOM are normal. Righ t eye exhibits no discharge. Left eye exhibits no discharge. No scleral icterus. Neck: Normal range of motion. Neck supple. Cardiovascular: Normal rate, regular rhythm and normal heart sounds. Exam reveals no russo p and no friction rub. No murmur heard. Pulmonary/Chest: Effort normal and breath sounds normal. No respiratory distress. Lymphadenopathy: She has no cervical adenopathy. Neurological: She is alert and oriented to person, place, and time. No cranial nerve defici t. Skin: Skin is warm and dry. Psychiatric: She has a normal mood and affect. Her behavior is normal. Judgment and thought content normal. Assessment: 1. Essential hypertension 2. Depression, unspecified depression type 3. Anxiety 4. Asthma due to environmental allergies Plan: Increase Toprol XL to 100 mg daily and recheck in 2-3 weeks. Continue current Buspar dose a nd FU with mental health provider. Continue current asthma inhalers. documented in this en counter Plan of Treatment +--------+ + + + + | Date | Type | Specialty | Care Team | Description | +--------+ + + + + | 02/18/ | Appointment | Rehabilitation | Erika Ernst, | | | 2019 | | | DO [address] [place] | | | | | | [place] [address] | | | | | | [phone] | | | | | | | | | | | | Julia Fisher, | | | | | | PT | | +--------+ + + + + | 02/18/ | Appointment | Rehabilitation | Erika Ernst, | | | 2019 | | | DO [address] [place] | | | | | | [place] [address] | | | | | | [phone] | | | | | | | | | | | | Genesis Ayon, OT | | +--------+ + + + + | 02/25/ | Office | Primary Care | Erika Ernst, | | | 2019 | Visit | | DO [address] [place] | | | | | | [place] [address] | | | | | | [phone] | | | | | | | | +--------+ + + + + | 02/25/ | Appointment | Rehabilitation | Genesis Ayon OT | | | 2019 | | | | | +--------+ + + + + | 02/26/ | Virtual | Rehabilitation | Usha Rodriguez | | | 2019 | Office | | MD Precious [address] | | | | Visit | | [address] [place] | | | | | | [place] [address] | | | | | | [phone] | | | | | | | | +--------+ + + + + | 02/27/ | Appointment | Radiology | Dhara, | | | 2019 | | | [address] | | | | | | [address] [place], | | | | | | [place] [address] | | | | | | [phone] | | | | | | | | +--------+ + + + + | 03/04/ | Appointment | Rehabilitation | Genesis Ayon OT | | | 2019 | | | | | +--------+ + + + + | 03/09/ | Office | Orthopedic Surgery | Jeffrey Gandhi, | | | 2019 | Visit | | [address] [facility] | | | | | | [place] [address] | | | | | | [phone] | | | | | | | [...] 2019 | Visit | Gynecology | DO Radha [address] | | | | | | [address] | | | | | | [place], [place] | | | | | | [address] | | | | | | [phone] | | | | | | | [...] | | | | | [place] [address] | | | | | | [phone] | | | | | | | | | | | | Azul Yeboah, | | | | | | MD [address] | | | | | | [place] [place] | | | | | | [place] [address] | | | | | | [phone] | | | | | | | [...] | | | | | | [address] [place], | | | | | | [place] [address] | | | | | | [phone] | | | | | | | | +--------+ + + + + documented as of this encounter Visit Diagnoses + + | Diagnosis | + + | Essential hypertension - Primary Unspecified essential hypertension | + + | Depression, unspecified depression type | + + | Anxiety Anxiety state, unspecified | + + | Asthma due to environmental allergies | + + documented in this encounter
--- OUTSIDE RECORDS SUMMARY | ~2020-02-18 | XMS | Encounter Summary ---
Demographics + + + | Address | [address] | | | [place] [address] | + + + | Home Phone | | + + + | Preferred Language | Unknown | + + + | Marital Status | Single | + + + | Jain Affiliation | Unknown | + + + | Race | Unknown | + + + | Ethnic Group | Unknown | + + + Author + + + | Author | [facility] | | | and [place] | + + + | Organization | [facility] | | [...] Team Providers + +------+ + | Care Water And Fire Technician Name | Role | Phone | + +------+ + | Erika Ernst DO | PCP | | + +------+ + Reason for Visit +--------+ + | Reason | Comments | +--------+ + | Other | wrist pain | +--------+ + Encounter Details +--------+ + + + + | Date | Type | Department | Care Team | Description | +--------+ + + + + | 05/01/ | Telephone | [facility] [facility] | Travis Malone, BUILDING OPERATOR | Other (wrist pain ) | | 2019 | | [facility] | [address] | | | | | [address] [place] | [place], [place] | | | | | [place], [place] | [address] | | | | | [address] | [phone] | | | | | [phone] | | | +--------+ + + + [...] | | 2019 | | | DO | | | | | | [place] [address] | | | | | | [phone] | | | | | | | | | | | | Julia Fisher, | | | | | | PT | | +--------+ + + + + | 02/18/ | Appointment | Rehabilitation | Erika Ernst, | | | 2019 | | | DO [address] [place] | | | | | | [place] [address] | | | | | | [phone] | | | | | | | | | | | | Genesis Ayon OT | | +--------+ + + + + | 02/25/ | Office | Primary Care | Erika Ernst, | | | 2019 | Visit | | DO [address] [place] | | | | | | [place] [address] | | | | | | [phone] | | | | | | | [...] [place] | | | | | | [place] [address] | | | | | | [phone] | | | | | | | | +--------+ + + + + | 02/27/ | Appointment | Radiology | Dhara, | | | 2019 | | | [address] | | | | | | [address] [facility], | | | | | | [place] [address] | | | | | | [phone] | | | | | | | | +--------+ + + + + | 03/04/ | Appointment | Rehabilitation | Genesis Ayon OT | | | 2019 | | | | | +--------+ + + + + | 03/09/ | Office | Orthopedic Surgery | Jeffrey Gandhi, | | | 2019 | Visit | | [address] | | | | | | [place] [address] | | | | | | [phone] | | | | | | | [...] Obstetrics and | Emily Avery | | 2019 | Visit | Gynecology | DO Jackelyn Garcia | | | | | | [address] | | | | | | [place], [place] | | | | | | [address] | | | | | | [phone] | | | | | | | [...] | | | | | [place] [address] | | | | | | [phone] | | | | | | | | | | | | Azul Yeboah, | | | | | | MD [address] | | | | | | [place] | | | | | | [place] [address] | | | | | | [phone] | | | | | | | | +--------+ + + + + | 04/08/ | Appointment | Nutrition | Janel Webster | | | 2019 | | | [place], [place] | | +--------+ + + + + | 05/21/ | Office | Neurology | Dhara, | | | 2020 | Visit | | [address] | | | | | | [address] [place], | | | | | | [place] [address] | | | | | | [phone] | | | | | | | | +--------+ + + + + documented as of this encounter Visit Diagnoses Not on filedocumented in this encounter"
--- OUTSIDE RECORDS SUMMARY | ~2020-02-18 | XMS | Encounter Summary ---
Demographics + + + | Address | [address] | | | [place] [address] | + + + | Home Phone | | + + + | Preferred Language | Unknown | + + + | Marital Status | Single | + + + | Buddhism Affiliation | Unknown | + + + | Race | Unknown | + + + | Ethnic Group | Unknown | + + + Author + + + | Author | [facility] | | | and [place] | + + + | Organization | [facility] | | | and [...] Team Providers + +------+ + | Care Manager Project Management Name | Role | Phone | + +------+ + PCP | Unavailable | + +------+ + Encounter Details +--------+ + + + + | Date | Type | Department | Care Team | Description | +--------+ + + + + | 05/03/ | [facility] | Erika Ernst, | | | 2016 | Encounter | [facility] | DO [address] | | | | | [address] [place] | [place] [address] | | | | | [place], [place] | [phone] | | | | | [address] | | | | | | [phone] | | | +--------+ + + + + Social History + +-------+ +--------+------+ | Tobacco Use | Types | Packs/Day | Years | Date | | | | | Used | | + +-------+ +--------+------+ | Never Assessed | | | | | + +-------+ +--------+------+ + + + | Sex Assigned at [...] + + documented as of this encounter Medications at Time of Discharge + + + +---------+ + + | Medication | Sig | Dispensed | Refills | Start | End Date | | | | | | Date | | + + + +---------+ + + | albuterol (PROAIR | Inhale into the | | 0 | 10/12/19 | | | HFA) 90 mcg/puff | lungs. | | | 17 | 8 | | inhaler | | | | | | + + + +---------+ + + | fexofenadine | Take by mouth. | | 0 | 04/08/20 | | | (JOSÉ ANTONIO ALLERGY) | | | | 17 | 8 | | 180 mg tablet | | | | | | + + + +---------+ + + | fluticasone | by Nasal route. | | 0 | 02/11/20 | | | (FLONASE) 50 | | | | 16 | 8 | | mcg/nasal spray | | | | | | + + + +---------+ + + | ipratropium | Inhale into the | | 0 | 12/18/19 | | | (ATROVENT HFA) 17 | lungs. | | | 17 | 8 | | mcg/puff inhaler | | | | | | + + + +---------+ + + | levothyroxine | Take by mouth. | | 0 | 10/13/19 | | | (SYNTHROID) 75 MCG | | | | 17 | 8 | | tablet | | | | | | + + + +---------+ + + | montelukast | Take by mouth. | | 0 | 02/24/20 | | | (SINGULAIR) 10 mg | | | | 17 | 8 | | tablet | | | | | | + + + +---------+ + + documented as of this encounter Plan of Treatment +--------+ + + + + | Date | Type | Specialty | Care Team | Description | +--------+ + + + + | 02/18/ | Appointment | Rehabilitation | Erika Ernst, | | | 2019 | | | DO [address] | | | | | | [place] [address] | | | | | | [phone] | | | | | | | | | | | | Julia Fisher, | | | | | | PT | | +--------+ + + + + | 02/18/ | Appointment | Rehabilitation | Erika Ernst, | | | 2019 | | | DO [address] [place] | | | | | | [place] [address] | | | | | | [phone] | | | | | | | | | | | | Genesis Ayon, OT | | +--------+ + + + + | 02/25/ | Office | Primary Care | Erika Ernst, | | | 2019 | Visit | | DO [address] [place] | | | | | | [place] [address] | | | | | | [phone] | | | | | | | [...] | | | | | | [place] [address] | | | | | | [phone] | | | | | | | | +--------+ + + + + | 02/27/ | Appointment | Radiology | Dhara, | | | 2019 | | | [address] | | | | | | [address] [facility], | | | | | | [place] [address] | | | | | | [phone] | | | | | | | | +--------+ + + + + | 03/04/ | Appointment | Rehabilitation | Genesis Ayon OT | | | 2019 | | | | | +--------+ + + + + | 03/09/ | Office | Orthopedic Surgery | Jeffrey Gandhi, | | 2019 | Visit | | [address] | | | | | | [place] [address] | | | | | | [phone] | | | | | | | [...] | 2019 | Visit | Gynecology | Radha, DO [address] | | | | | [address] | | | | | | [place], [place] | | | | | | [address] | | | | | | [phone] | | | | | | | | +--------+ + + + + | 03/25/ | Appointment | Rehabilitation | Genesis Ayon OT | | | 2019 | | | | | +--------+ + + + + | 04/08/ | Office | Neurology | Erika Ernst, | | | 2019 | Visit | | [address] [place] | | | | | | [place] [address] | | | | | | [phone] | | | | | | | | | | | | Azul Yeboah, | | | | | | [address] | | | | | | [place] [place] | | | | | | [place] [address] | | | | | | [phone] | | | | | | | [...] | | | | | | [address] [facility], | | | | | | [place] [address] | | | | | | [phone] | | | | | | | | +--------+ + + + + documented as of this encounter Procedures + +--------+ + + + | Procedure Name | Priori | Date/Time | Associated Diagnosis | Comments | | | ty | | | | + +--------+ + + + | LIPID PANEL | Routin | 05/03/2017 | | Results for this | | | e | 8:17 AM | | procedure are in the | | | | PDT | | results section. | + +--------+ + + + | COMPREHENSIVE | Routin | 05/03/2017 | | Results for this | | METABOLIC PANEL | e | 8:17 AM | | procedure are in the | | | | PDT | | results section. | + +--------+ + + + documented in this encounter Results Lipid Panel (05/03/2017 8:17 AM PDT) + +-------+ + + + | Component | Value | Ref Range | Performed | Pathologist | | | | | At | Signature | + +-------+ + + + | Cholesterol | 134 | <=200 mg/dL | EXTERNAL | | | , POC | | | LAB | | + +-------+ + + + | HDL | 35 | >=40 mg/dL | EXTERNAL | | | | | | LAB | | + +-------+ + + + | Triglycerid | 99 | 30 - 200 mg/dL | EXTERNAL | | | es | | | LAB | | + +-------+ + + + | Chol/HDL | 3.8 | <=4.6 RATIO | EXTERNAL | | | Ratio | | | LAB | | + +-------+ + + + | VLDL | 20 | 4 - 40 mg/dL | EXTERNAL | | | | | | LAB | | + +-------+ + + + | LDL-C | 79 | <=130 mg/dL | EXTERNAL | | | (calculated | | | LAB | | | ) | | | | | + +-------+ + + + + + | Specimen | + + | | + + + +---------+ + + | Performing | Address | City/State/Zipcode | Phone Number | | Organization | | | | + +---------+ + + | EXTERNAL LAB | | | | + +---------+ + + Comprehensive Metabolic Panel (05/03/2017 8:17 AM PDT) + +-------+ + + + | Component | Value | Ref Range | Performed | Pathologist | | | | | At | Signature | + +-------+ + + + | Sodium | 141 | 132 - 143 | EXTERNAL | | | | | mmol/L | LAB | | + +-------+ + + + | Potassium | 3.5 | 3.3 - 4.9 | EXTERNAL | | | | | mmol/L | LAB | | + +-------+ + + + | Cl | 108 | 95 - 108 mmol/L | EXTERNAL | | | | | | LAB | | + +-------+ + + + | CO2 | 24 | 23 - 34 mmol/L | EXTERNAL | | | | | | LAB | | + +-------+ + + + | Anion Gap | 10 | 7 - 16 | EXTERNAL | | | | | | LAB | | + +-------+ + + + | Calcium | 8.8 | 8.3 - 10.0 | EXTERNAL | | | | | mg/dL | LAB | | + +-------+ + + + | Glucose | 98 | 70 - 110 mg/dL | EXTERNAL | | | | | | LAB | | + +-------+ + + + | BUN, Bld | 14 | 5 - 26 mg/dL | EXTERNAL | | | | | | LAB | | + +-------+ + + + | Creatinine | 0.72 | 0.60 - 1.30 | EXTERNAL | | | | | mg/dL | LAB | | + +-------+ + + + | BUN/Creatin | 19.4 | 7.0 - 24.0 | EXTERNAL | | | ine Ratio | | RATIO | LAB | | + +-------+ + + + | GFR | 60 | >=60 | EXTERNAL | | | ESTIMATE | | mL/min/1.73m2 | LAB | | | (REF) | | | | | + +-------+ + + + | Bilirubin, | 0.5 | <=1.2 mg/dL | EXTERNAL | | | Total | | | LAB | | + +-------+ + + + | Protein, | 6.9 | 6.6 - 8.5 g/dL | EXTERNAL | | | Total | | | LAB | | + +-------+ + + + | Albumin | 3.4 | 3.0 - 4.5 g/dL | EXTERNAL | | | | | | LAB | | + +-------+ + + + | Alkaline | 91 | 46 - 116 U/L | EXTERNAL | | | Phosphatase | | | LAB | | + +-------+ + + + | ALT, | 24 | 14 - 59 U/L | EXTERNAL | | | External | | | LAB | | + +-------+ + + + | AST, | 15 | <=38 U/L | EXTERNAL | | | External | | | LAB | | + +-------+ + + + + + | Specimen | + + | | + + + +---------+ + + | Performing | Address | City/State/Zipcode | Phone Number | | Organization | | | | + +---------+ + + | EXTERNAL LAB | | | | + +---------+ + + documented in this encounter Visit Diagnoses Not on filedocumented in this encounter"
--- OUTSIDE RECORDS SUMMARY | ~2020-02-18 | XMS | Encounter Summary ---
Demographics + + + | Address | [address] | | | [place] [address] | + + + | Home Phone | | + + + | Preferred Language | Unknown | + + + | Marital Status | Single | + + + | Confucianism Affiliation | Unknown | + + + | Race | Unknown | + + + | Ethnic Group | Unknown | + + + Author + + + | Author | [facility] | | | and [place] | + + + | Organization | [facility] | | [...] Team Providers + +------+ + | Care Acid Polymerization Operator Name | Role | Phone | + +------+ + | Erika Ernst DO | PCP | | + +------+ + Reason for Visit +---------+ + | Reason | Comments | +---------+ + | Results | | +---------+ + Encounter Details +--------+ + + + + | Date | Type | Department | Care Team | Description | +--------+ + + + + | 05/07/ | Telephone | [place] [facility] | Yolanda Alem L, | Results | | 2018 | | [facility] | CHILD LIFE SPECIALIST-CAR[facility] [address] | | | | | [facility] [address] | | | | | [address] [place], | [place] [address] | | | | | [place] [address] | [phone] | | | | | [phone] | | | +--------+ + + + [...] | 2019 | | | DO [address] | | | | | | [place] [address] | | | | | | [phone] | | | | | | | | | | | | Julia Fisher, | | | | | | PT | | +--------+ + + + + | 02/18/ | Appointment | Rehabilitation | Erika Ernst, | | | 2019 | | | DO [address] [place] | | | | | | [place] [address] | | | | | | [phone] | | | | | | | | | | | | Genesis Ayon OT | | +--------+ + + + + | 02/25/ | Office | Primary Care | Erika Ernst, | | | 2019 | Visit | | DO [address] [place] | | | | | | [place] [address] | | | | | | [phone] | | | | | | | | +--------+ + + + + | 02/25/ | Appointment | Rehabilitation | Genesis Ayon OT | | | 2019 | | | | | +--------+ + + + + | 02/26/ | Virtual | Rehabilitation | Usha Rodriguez | | 2019 | Office | | MD Precious [address] | | | | Visit | | [address] [place] | | | | | | [place] [address] | | | | | | [phone] | | | | | | | | +--------+ + + + + | 02/27/ | Appointment | Radiology | Dhara, | | | 2019 | | | [address] | | | | | | [address] [facility], | | | | | | [place] [address] | | | | | | [phone] | | | | | | | | +--------+ + + + + | 03/04/ | Appointment | Rehabilitation | Genesis Ayon OT | | | 2019 | | | | | +--------+ + + + + | 03/09/ | Office | Orthopedic Surgery | Jeffrey Gandhi, | | | 2019 | Visit | | [place] [address] [facility] | | | | | | [place] [address] | | | | | | [phone] | | | | | | | [...] [place] | | | | | | [address] | | | | | | [phone] | | | | | | | | +--------+ + + + + | 03/25/ | Appointment | Rehabilitation | Genesis Ayon OT | | | 2019 | | | | | +--------+ + + + + | 04/08/ | Office | Neurology | Erika Ernst, | | | 2019 | Visit | | DO [address] [place] | | | | | | [place] [address] | | | | | | [phone] | | | | | | | | | | | | Azul Yeboah, | | | | | | MD [address] | | | | | | [address] [place] | | | | | | [place] [address] | | | | | | [phone] | | | | | | | [...] | | | | | | [place] [address] | | | | | | [phone] | | | | | | | | +--------+ + + + + documented as of this encounter Visit Diagnoses Not on filedocumented in this encounter"
--- OUTSIDE RECORDS SUMMARY | ~2020-02-18 | XMS | Encounter Summary ---
Demographics + + + | Address | [address] | | | [place] [address] | + + + | Home Phone | | + + + | Preferred Language | Unknown | + + + | Marital Status | Single | + + + | Pentecostal Affiliation | Unknown | + + + | Race | Unknown | + + + | Ethnic Group | Unknown | + + + Author + + + | Author | [facility] | | | and [place] | + + + | Organization | [facility] | | | and [...] Team Providers + +------+ + | Care Merchandise Support Associate Name | Role | Phone | + +------+ + | Erika Ernst DO | PCP | | + +------+ + Reason for Visit + + + | Reason | Comments | + + + | Breathing Problem | Pt's cold symptoms not better | + + + Encounter Details +--------+ + + + + | Date | Type | Department | Care Team | Description | +--------+ + + + + | 12/01/ | Telephone | [place] [facility] | Erika Ernst, | Breathing Problem | | 2020 | | [facility] | DO [address] | (Pt's cold symptoms | | | | [facility] [address] | [place] [address] | not better) | | | | [address] [place], | [phone] | | | | | [place] [address] | | | | | | [phone] | | | +--------+ + + + [...] | | | | | [place] [address] | | | | | | [phone] | | | | | | | | | | | | Julia Fisher, | | | | | | PT | | +--------+ + + + + | 02/18/ | Appointment | Rehabilitation | Erika Ernst, | | | 2019 | | | DO [address] | | | | | | [place] [address] | | | | | | [phone] | | | | | | | | | | | | Genesis Ayon, OT | | +--------+ + + + + | 02/25/ | Office | Primary Care | Erika Ernst, | | | 2019 | Visit | | DO [address] | | | | | | [place] [address] | | | | | | [phone] | | | | | | | [...] | | | | | [place] [address] | | | | | | [phone] | | | | | | | | +--------+ + + + + | 02/27/ | Appointment | Radiology | Dhara, | | | 2019 | | | [address] | | | | | [address] [place], | | | | | | [place] [address] | | | | | | [phone] | | | | | | | | +--------+ + + + + | 03/04/ | Appointment | Rehabilitation | Genesis Ayon OT | | | 2019 | | | | | +--------+ + + + + | 03/09/ | Office | Orthopedic Surgery | Jeffrey Gandhi, | | | 2019 | Visit | | [address] [facility] | | | | | | [place] [address] | | | | | | [phone] | | | | | | | [...] [place] | | | | | | [address] | | | | | | [phone] | | | | | | | [...] | | | | | [place] [address] | | | | | | [phone] | | | | | | | | | | | | Azul Yeboah, | | | | | | MD [address] | | | | | | [place] | | | | | | [place] [address] | | | | | | [phone] | | | | | | | [...] | | | | | | [place] [address] | | | | | | [phone] | | | | | | | | +--------+ + + + + documented as of this encounter Visit Diagnoses Not on filedocumented in this encounter"
--- OUTSIDE RECORDS SUMMARY | ~2020-02-18 | XMS | Encounter Summary ---
Demographics + + + | Address | [address] | | | [place] [address] | + + + | Home Phone | | + + + | Preferred Language | Unknown | + + + | Marital Status | Single | + + + | Religion Affiliation | Unknown | + + + | Race | Unknown | + + + | Ethnic Group | Unknown | + + + Author + + + | Author | [facility] | | | and [place] | + + + | Organization | [facility] | | | and [...] Team Providers + +------+ + | Care Crawler Tractor Operator Name | Role | Phone | + +------+ + | Erika Ernst DO | PCP | | + +------+ + Reason for Visit Evaluate & Treat (Routine) + + + + + + + | Status | Reason | Specialty | Diagnoses / | Referred By | Referred To | | | | | Procedures | Contact | Contact | + + + + + + + | Authorized | Specialty | Nutrition | Diagnoses | Klever, | Darin, | | | Services | | Class 3 | Erika A, DO | Janel G, RD | | | Required | | severe | [address] | | | | | | obesity due | [place], | | | | | | to excess | [place] [address] | | | | | | calories | Phone: | | | | | | without | [phone] | | | | | | serious | Fax: | | | | | | comorbidity | [phone] | | | | | | with body | | | | | | | mass index | | | | | | | (BMI) of | | | | | | | 50.0 to 59.9 | | | | | | | in adult | | | | | | | (HCC) | | | | | | | Essential | | | | | | | hypertension | | | | | | | Dietary | | | | | | | counseling | | | | | | | and | | | | | | | surveillance | | | | | | | Procedures | | | | | | | [place] [facility] | | | | | | | NUTR THER, | | | | | | | SUBSQ, | | | | | | | INDIV, EA 15 | | | | | | | MIN | | | + + + + + + + Encounter Details +--------+ + + + + | Date | Type | Department | Care Team | Description | +--------+ + + + + | 12/31/ | Hospital | [place] [facility] | Erika Ernst, | Essential | | 2020 | Encounter | [facility]ITION | DO [address] | hypertension, | | | | SERVICES [address] | [place] [address] | malignant; Morbid | | | | DR [place], [place] | [phone] | obesity (HCC); Body | | | | [address] | | mass index | | | | [phone] | Janel Webster, | 50.0-59.9, adult | | | | | RD | (HCC); Dietary | | | | | | counseling and | | | | | | surveillance | +--------+ + + + + Social [...] + + +---------+ + + | albuterol 2.5 mg/3 | Inhale 1-2 | 120 | 0 | //20 | | | mL nebulizer | treatments in | vial | | 20 | | | solution | nebulizer every 20 | | | | | | | minutes for 3 doses, | | | | | | | then 1-4 treatments | | | | | | | every 1-4 hours as | | | | | | | needed | | | | | + + + +---------+ + + | azelastine 0.1% | instill 1 to 2 spray | | 1 | 11/22/19 | | | nasal spray | into each nostril | | | 19 | | | | twice a day if | | | | | | | needed | | | | | + + + +---------+ + + | busPIRone (BUSPAR) | take 1 tablet by | 150 | 0 | //20 | | | 10 MG tablet | mouth five times a | tablet | | 20 | | | | day | | | | | + + + +---------+ + + | cetirizine | Take 1 tablet by | 90 | 11 | 12/24/19 | | | (ZYRTEC) 10 mg | mouth Daily. | tablet | | 20 | | | tablet | | | | | | + + + +---------+ + + | cholecalciferol | Take one tab WEEKLY | 16 | 0 | 10/28/19 | | | (VITAMIN D-3) 1.25 | for 4 months | tablet | | 20 | | | mg (50,000 units) | | | | | | | tablet | | | | | | + + + +---------+ + + | COMBIVENT RESPIMAT | inhale 1 puff INTO | 1 | 5 | 09/11/20 | | | 20-100 MCG/ACT | THE LUNGS every 4 | Inhaler | | 19 | | | inhaler | hours if needed for | | | | | | | shortness of breath | | | | | + + + +---------+ + + | diphenhydrAMINE | Take 25 mg by mouth | | 0 | | | | (BENADRYL) 25 MG | nightly as needed | | | | | | capsule | for Itching. | | | | | + + + +---------+ + + | DULERA 200-5 | inhale 2 puffs by | | 1 | 08/15/20 | | | MCG/ACT inhaler | mouth twice a day | | | 19 | | + + + +---------+ + + | FEROSUL 325 (65 | take 1 tablet by | 90 | 0 | 12/20/19 | | | Fe) MG tablet | mouth three times a | tablet | | 20 | | | | day with meals | | | | | + + + +---------+ + + | | Take 1 tablet by | | 0 | | | | fexofenadine-pseudoe | mouth. | | | | | | PHEDrine (JOSÉ ANTONIO-D | | | | | | | 24) 180-240 MG per | | | | | | | tablet | | | | | | + + + +---------+ + + | Fluocinonide 0.1 % | apply A SMALL AMOUNT | | 0 | // | | | CREA | to affected area | | | 19 | | | | twice a day | | | | | + + + +---------+ + + | fluticasone | 1 spray by Nasal | | 0 | | | | (FLONASE ALLERGY | route Daily as | | | | | | RELIEF) 50 mcg/nasal | needed for | | | | | | spray | Allergies. | | | | | + + + +---------+ + + | levothyroxine | Take 50 mcg daily | 90 | 3 | / | | | (SYNTHROID) 50 mcg | | tablet | | 20 | | | tablet | | | | | | + + + +---------+ + + | MAGNESIUM CHLORIDE | Take by mouth. | | 0 | | | | PO | | | | | | + + + +---------+ + + | meclizine | take 1 tablet by | 180 | 0 | 12/20/19 | | | (ANTIVERT) 25 mg | mouth Twice a day if | tablet | | 20 | | | tablet | needed for | | | | | | | dizziness | | | | | + + + +---------+ + + | melatonin 10 mg SL | Place 10 mg under | | 0 | | | | tablet | the tongue nightly. | | | | | + + + +---------+ + + | predniSONE | take 2 tablets daily | | 0 | 01/01/20 | | | (DELTASONE) 20 mg | for 3 days then 1 | | | 20 | | | tablet | AND 1/2 tablets | | | | | | | daily for ... | | | | | | | (REFER TO | | | | | | | PRESCRIPTION NOTES). | | | | | + + + +---------+ + + | QVAR REDIHALER 80 | Inhale 2 puffs into | 3 | 0 | 12/20/19 | | | MCG/ACT inhaler | the lungs 2 times | Inhaler | | 20 | | | | daily. | | | | | + + + +---------+ + + | SPIRIVA RESPIMAT | Inhale 2 puffs into | | 0 | 12/16/19 | | | 1.25 MCG/ACT inhaler | the lungs 2 times | | | 20 | | | | daily. | | | | | + + + +---------+ + + | tiZANidine | Take 1 tablet by | 30 | 2 | 10/30/19 | | | (ZANAFLEX) 4 mg | mouth every 8 hours | tablet | | 20 | | | tablet | as needed. | | | | | + + + +---------+ + + | UNABLE TO FIND | Med Name: reishi | | 0 | | | + + + +---------+ + + | Valerian Root 250 | Take by mouth. | | 0 | | | | MG CAPS | | | | | | + + + +---------+ + + | Zinc 10 MG LOZG | | | 0 | 06/02/20 | | | | | | | 19 | | + + + +---------+ + + | benzonatate | Take 2 capsules by | 30 | 0 | 12/12/19 | | | (TESSALON) 100 mg | mouth 3 times daily | capsule | | 20 | 0 | | capsuleIndications: | as needed for Cough. | | | | | | Dry cough | | | | | | + + + +---------+ + + | Control Gel | | | 0 | 12/05/19 | | | Formula Dressing | | | | 20 | 0 | | (DUODERM CGF EXTRA | | | | | | | THIN EX) | | | | | | + + + +---------+ + + | ferrous sulfate | 3 ml liquid iron TID | 150 mL | 5 | 09/23/20 | | | (TARAN-IN-HEMANTH) 15 | | | | 19 | 0 | | mg/mL SOLN | | | | | | + + + +---------+ + + | fluconazole | Daily X 3 days | 3 | 1 | 12/26/19 | | | (DIFLUCAN) 150 mg | | tablet | | 20 | 0 | | tablet | | | | | | + + + +---------+ + + | gabapentin | | | 0 | 11/11/19 | | | (NEURONTIN) 100 mg | | | | 20 | 0 | | capsule | | | | | | + + + +---------+ + + | meclizine | take 1 tablet by | 60 | 0 | 12/20/19 | | | (ANTIVERT) 12.5 mg | mouth every 6 hours | tablet | | 20 | 0 | | tablet | if needed for | | | | | | | dizziness | | | | | + + + +---------+ + + | montelukast | take 1 tablet by | 30 | 11 | 11/22/19 | | | (SINGULAIR) 10 mg | mouth every evening | tablet | | 20 | 0 | | tablet | | | | | | + + + +---------+ + + | ondansetron | Take 1 tablet by | 10 | 0 | 12/29/ | | | (ZOFRAN ODT) 4 mg | mouth every 8 hours | tablet | | 20 | 0 | | disintegrating | as needed for | | | | | | tablet | Nausea. | | | | | + + + +---------+ + + | ondansetron | Take 1 tablet by | 12 | 0 | 11/12/19 | | | (ZOFRAN ODT) 8 mg | mouth every 8 hours | tablet | | 20 | 0 | | disintegrating | as needed for | | | | | | tabletIndications: | Nausea. | | | | | | Migraine without | | | | | | | aura and without | | | | | | | status migrainosus, | | | | | | | not intractable | | | | | | + + + +---------+ + + | prazosin | Take BID | 180 | 3 | 12/20/19 | | | (MINIPRESS) 1 mg | | capsule | | 20 | 0 | | capsule | | | | | | + + + +---------+ + + | traMADol (ULTRAM) | Take 50 mg by mouth | | 0 | | | | 50 mg tablet | every 6 hours as | | | | 0 | | | needed. | | | | | + + + +---------+ + + documented as of this encounter Progress Notes Janel Webster RD - 01/01/2020 4:00 PM PDTAssessment: Dx: obesity Pt reports overall feeling fatigued and run down. Increased anxiety with covid 19 pandemic but says it has helped to damper worker. Pt says she has been feeling sick for 5-6 weeks wi th respiratory symptoms. She says she has been seeing her ship engineer for her asthma but w orries it might be turning into bronchitis. Recent head trauma she sought medication attenti on. She has continued nausea, aura; plans to see a provider this upcoming Monday. She contin ues to forget to eat and usually just has dinner, snacks at night (vegs, tofu, peanut butter ). Physical activity: walks regularly and noticing it is becoming easier on her knees. Sleeps: goes to be 2-3am and wakes up 10-11am Height:5'10 Current wt:255.9# Last RD visit wt: 262# BMI:36.8 Nutrition Diagnosis: No dx at this time Intervention: Wt loss 6# since last visit. Encouraged pt to continue getting her symptoms checked with a provider for her respiratory illness and head trauma. Discussed the value in setting a sched ule for work, meals and sleep to keep up with normalcy since she has been out of routine. Re educated on the importance of balancing her meals, getting enough protein rich sources and c onsider keeping up with protein fortified vitamin/mineral ONS to help meet her needs. Encour aged dawn sources like tea to help with nausea. Goals: 1.) Set schedule with meals, sleep and work 2.) Set alarms on phone for meal reminders 3.) Continue positive stress relief 4.) Keep a food log Monitor/Evaluation: Will monitor wt trends, nutrition related labs and food diary. Scheduled for a revisit in 8 to 10 weeks. Time spent with pt: 30 mins Electronically Signed by: Janel Webster RD 01/01/2020 4:47 PM documented in this encounter Plan of Treatment +--------+ + + + + | Date | Type | Specialty | Care Team | Description | +--------+ + + + + | 02/18/ | Appointment | Rehabilitation | Erika Ernst, | | | 2019 | | | DO [address] | | | | | | [place] [address] | | | | | | [phone] | | | | | | | | | | | | Julia Fisher, | | | | | | PT | | +--------+ + + + + | 02/18/ | Appointment | Rehabilitation | Erika Ernst, | | | 2019 | | | DO [address] | | | | | | [place] [address] | | | | | | [phone] | | | | | | | | | | | | Genesis Ayon OT | | +--------+ + + + + | 02/25/ | Office | Primary Care | Erika Ernst, | | | 2019 | Visit | | DO [address] | | | | | | [place] [address] | | | | | | [phone] | | | | | | | [...] | | | | Visit | | [place] | | | | | | [place] [address] | | | | | | [phone] | | | | | | | | +--------+ + + + + | 02/27/ | Appointment | Radiology | Dhara, | | | 2019 | | | DWAINE Ross [address] | | | | [address] [place], | | | | | | [place] [address] | | | | | | [phone] | | | | | | | [...] ST | | | | | | [place] [address] | | | | | | [phone] | | | | | | | | +--------+ + + + + | 03/11/ | Appointment | Rehabilitation | Genesis Ayon OT | | | 2019 | | | | | +--------+ + + + + | 03/18/ | Appointment | Rehabilitation | Genesis Ayon SUSAN | | | 2019 | | | | | +--------+ + + + + | 03/19/ | Office | Obstetrics and | Emily Avery | | | 2019 | Visit | Gynecology | DO [address] | | | | | [address] | | | | | | [place], [place] | | | | | | [address] | | | | | | [phone] | | | | | | | [...] | | | | | [place] [address] | | | | | | [phone] | | | | | | | | | | | | Azul Yeboah, | | | | | | MD [address] | | | | | | [place] | | | | | | [place] [address] | | | | | | [phone] | | | | | | | [...] | | | | | | [place] [address] | | | | | | [phone] | | | | | | | | +--------+ + + + + documented as of this encounter Visit Diagnoses + + | Diagnosis | + + | Essential hypertension, malignant | + + | Morbid obesity (HCC) Morbid obesity | + + | Body mass index 50.0-59.9, adult (HCC) Body Mass Index 50.0-59.9, adult | + + | Dietary counseling and surveillance Dietary surveillance and counseling | + + documented in this encounter"
--- OUTSIDE RECORDS SUMMARY | ~2020-02-18 | XMS | Encounter Summary ---
Demographics + + + | Address | [address] | | | [place] [address] | + + + | Home Phone | | + + + | Preferred Language | Unknown | + + + | Marital Status | Single | + + + | Faith Affiliation | Unknown | + + + [...] Team Providers + +------+ + | Care Child Center Assistant Name | Role | Phone | + +------+ + | Erika Ernst DO | PCP | | + +------+ + Encounter Details +--------+ + + + + | Date | Type | Department | Care Team | Description | +--------+ + + + + | 09/24/ | Orders Only | [place] [facility] | Erika Ernst, | | | 2018 | | [facility] | DO [address] | | | | | [facility] [address] | [place] [address] | | | | | [address] [place], | [phone] | | | | | [place] [address] | | | | | | [phone] | | | +--------+ + + + [...] | 2019 | | | DO [address] | | | | | | [place], [place] [address] | | | | | | [phone] | | | | | | | | | | | | Julia Fisher, | | | | | | PT | | +--------+ + + + + | 02/18/ | Appointment | Rehabilitation | Erika Ernst, | | | 2019 | | | DO [address] [place] | | | | | | [place] [address] | | | | | | [phone] | | | | | | | | | | | | Genesis Ayon OT | | +--------+ + + + + | 02/25/ | Office | Primary Care | Erika Ernst, | | | 2019 | Visit | | DO [address] | | | | | | [place] [address] | | | | | | [phone] | | | | | | | | +--------+ + + + + | 02/25/ | Appointment | Rehabilitation | Genesis Ayon OT | | | 2019 | | | | | +--------+ + + + + | 02/26/ | Virtual | Rehabilitation | Usha Rodriguez | | | 2019 | Office | | MD [address] | | | | Visit | | [place] | | | | | | [place] [address] | | | | | | [phone] | | | | | | | | +--------+ + + + + | 02/27/ | Appointment | Radiology | Dhara, | | | 2019 | | | [address]WA[address] | | | | | | [address] [place], | | | | | | [place] [address] | | | | | | [phone] | | | | | | | | +--------+ + + + + | 03/04/ | Appointment | Rehabilitation | Genesis Ayon OT | | | 2019 | | | | | +--------+ + + + + | 03/09/ | Office | Orthopedic Surgery | Jeffrey Gandhi, | | | 2019 | Visit | | MD [address] | | | | | | [place] [address] | | | | | | [phone] | | | | | | | [...] | Visit | Gynecology | DO Jackelyn Garica | | | | | | [address] | | | | | | [place] | | | | | | [address] | | | | | | [phone] | | | | | | | [...] | | | | | [place] [address] | | | | | | [phone] | | | | | | | | | | | | Azul Yeboah, | | | | | | MD [address] | | | | | | [place] [address] [place] | | | | | | [place] [address] | | | | | | [phone] | | | | | | | | +--------+ + + + + | 04/08/ | Appointment | Nutrition | Janel Webster | | | 2019 | | | G, RD | | +--------+ + + + + | 05/21/ | Office | Neurology | Dhara, | | | 2019 | Visit | | [address] | | | | [address] [place], | | | | | | [place] [address] | | | | | | [phone] | | | | | | | | +--------+ + + + + documented as of this encounter Visit Diagnoses Not on filedocumented in this encounter"
--- OUTSIDE RECORDS SUMMARY | ~2020-02-18 | XMS | Encounter Summary ---
Demographics + + + | Address | [address] | | | [place] [address] | + + + | Home Phone | | + + + | Preferred Language | Unknown | + + + | Marital Status | Single | + + + | Taoism Affiliation | Unknown | + + + | Race | Unknown | + + + | Ethnic Group | Unknown | + + + Author + + + | Author | [facility] | | | and [place] | + + + | Organization | [facility] | | [...] Team Providers + +------+ + | Care Diet Clerk Name | Role | Phone | + +------+ + PCP | Unavailable | + +------+ + Encounter Details +--------+ + + + + | Date | Type | Department | Care Team | Description | +--------+ + + + + | 12/23/ | Hospital | [place] [facility] | Heather Yip, | | | 2016 | Encounter | [facility] | LEADER ASSEMBL[address] | | | | | [address] [place] | [place] [address] | | | | | [place], [place] | [phone] | | | | | [address] | | | | | | [phone] | | | +--------+ + + + [...] | | | | | [place] [address] | | | | | | [phone] | | | | | | | | | | | | Julia Fisher, | | | | | | PT | | +--------+ + + + + | 02/18/ | Appointment | Rehabilitation | Erika Ersnt, | | | 2019 | | | DO [address] [place] | | | | | | [place] [address] | | | | | | [phone] | | | | | | | | | | | | Genesis Ayon, OT | | +--------+ + + + + | 02/25/ | Office | Primary Care | Erika Ernst, | | | 2019 | Visit | | DO [address] [place] | | | | | | [place] [address] | | | | | | [phone] | | | | | | | [...] | | | | | | [place] [address] | | | | | | [phone] | | | | | | | | +--------+ + + + + | 02/27/ | Appointment | Radiology | Dhara, | | | 2019 | | | [address] | | | | | | [address] [facility], | | | | | | [place] [address] | | | | | | [phone] | | | | | | | | +--------+ + + + + | 03/04/ | Appointment | Rehabilitation | Genesis Ayon OT | | | 2019 | | | | | +--------+ + + + + | 03/09/ | Office | Orthopedic Surgery | Jeffrey Gandhi, | | 2019 | Visit | | [address] | | | | | | [place] [address] | | | | | | [phone] | | | | | | | [...] [place] | | | | | | [address] | | | | | | [phone] | | | | | | | [...] | | | | | [place] [address] | | | | | | [phone] | | | | | | | | | | | | Azul Yeboah, | | | | | | MD [address] | | | | | | [place] [place] | | | | | | [place] [address] | | | | | | [phone] | | | | | | | | +--------+ + + + + | 04/08/ | Appointment | Nutrition | Janel Webster | | | 2019 | | | [place] | | +--------+ + + + + | 05/21/ | Office | Neurology | Dhara, | | | 2019 | Visit | | Cody, LEADER ASSEMBLER [address] | | | | | | [address] [facility], | | | | | | [place] [address] | | | | | | [phone] | | | | | | | | +--------+ + + + + documented as of this encounter Procedures + +--------+ + + + | Procedure Name | Priori | Date/Time | Associated Diagnosis | Comments | | | ty | | | | + +--------+ + + + | MONONUCLEOSIS SCREEN | STAT | 12/24/2015 | | Results for this | | | | 4:22 PM | | procedure are in the | | | | PDT | | results section. | + +--------+ + + + documented in this encounter Results Mononucleosis Screen (12/24/2015 4:22 PM PDT) + + + + + + | Component | Value | Ref Range | Performed | Pathologist | | | | | At | Signature | + + + + + + | Infectious | NEGATIVE | NEGATIVE | EXTERNAL | | | [facility] | | | LAB | | + + + + + + | Internal QC | POSITIVE | POSITIVE | EXTERNAL | | | | | | LAB | | + + + + + + + + | Specimen [...]
--- OUTSIDE RECORDS SUMMARY | ~2020-02-18 | XMS | Encounter Summary ---
Demographics + + + | Address | [address] | | | [place] [address] | + + + | Home Phone [...] Author + + + | Author | [facility] | | | and [place] | + + + | Organization | [facility] | | | [...] Team Providers + +------+ + | Care Mexican Food Machine Tender Name | Role | Phone | + +------+ + | Erika Ernst DO | PCP | | + +------+ + Encounter Details +--------+ + + + + | Date | Type | Department | Care Team | Description | +--------+ + + + + | 07/02/ | Orders Only | [place] [facility] | Erika Ernst, | Thyroid cyst | | 2019 | | [facility] | DO [address] | | | | | MEDICAL CLIN[facility] [address] | [place] [address] | | | | | [address] [place], | [phone] | | | | | [place] [address] | | | | | | [phone] | | | +--------+ + + + [...] | 2019 | | | DO [address] | | | | | | [place] [address] | | | | | | [phone] | | | | | | | | | | | | Julia Fisher, | | | | | | PT | | +--------+ + + + + | 02/18/ | Appointment | Rehabilitation | Erika Ernst, | | | 2019 | | | DO [address] [place] | | | | | | [place] [address] | | | | | | [phone] | | | | | | | | | | | | Genesis Ayon OT | | +--------+ + + + + | 02/25/ | Office | Primary Care | Erika Ernst, | | | 2019 | Visit | | DO [address] [place] | | | | | | [place] [address] | | | | | | [phone] | | | | | | | [...] | | | | | | [place] [address] | | | | | | [phone] | | | | | | | | +--------+ + + + + | 02/27/ | Appointment | Radiology | Dhara, | | | 2019 | | | [address] | | | | | | [address] [facility] [place], | | | | | | [place] [address] | | | | | | [phone] | | | | | | | [...] | | | | | [place] [address] | | | | | | [phone] | | | | | | | | +--------+ + + + + | 03/11/ | Appointment | Rehabilitation | [facility] | | | 2020 | | | | | +--------+ + + + + | 03/18/ | Appointment | Rehabilitation | [facility] | | | 2020 | | | | | +--------+ + + + + | 03/19/ | Office | Obstetrics and | Emily Avery | | 2019 | Visit | Gynecology | DO Jackelyn Garcia | | | | | | [address] | | | | | | [place] | | | | | | [phone] | | | | | | [phone] | | | | | | | [...] | | | | | [place] [address] | | | | | | [phone] | | | | | | | | | | | | Azul Yeboah, | | | | | | MD [address] | | | | | | [address] [place] | | | | | | [place] [address] | | | | | | [phone] | | | | | | | [...] | | | | | | [place] [address] | | | | | | [phone] | | | | | | | | +--------+ + + + + + +---------+--------+ + + | Name | Type | Priori | Associated Diagnoses | Order Schedule | | | | ty | | | + +---------+--------+ + + | US Thyroid | Imaging | Routin | Thyroid cyst | Expected: | | | | e | | 07/02/2020, Expires: | | | | | | 07/02/2020 | + +---------+--------+ + + documented as of this encounter Visit Diagnoses + + | Diagnosis | + + | Thyroid cyst Cyst of thyroid | + + documented in this encounter"
--- OUTSIDE RECORDS SUMMARY | ~2020-02-18 | XMS | Encounter Summary ---
Demographics + + + | Address | [address] | | | [place] [address] | + + + | Home Phone | | + + + | Preferred Language | Unknown | + + + | Marital Status | Single | + + + | Yarsanism Affiliation | Unknown | + + + | Race | Unknown | + + + | Ethnic Group | Unknown | + + + Author + + + | Author | [facility] | | | and [place] | + + + | Organization | [facility] | | | and [...] Team Providers + +------+ + | Care Facilities Assistant Name | Role | Phone | + +------+ + | Erika Ernst DO | PCP | | + +------+ + Reason for Visit + + + | Reason | Comments | + + + | ER Follow-up | | + + + | Care Coordination | | + + + Encounter Details +--------+ + + + + | Date | Type | Department | Care Team | Description | +--------+ + + + + | 01/13/ | Telephone | [facility] [facility] | Erika Ernst, | ER Follow-up; Care | | 2019 | | [facility] | [address] [place] | Coordination | | | | [facility] [address] | [place] [address] | | | | | [address] [place], | [phone] | | | | | [place] [address] | | | | | | [phone] | | | +--------+ + + + [...] | | | | | [place] [address] | | | | | | [phone] | | | | | | | | | | | | Julia Fisher, | | | | | | PT | | +--------+ + + + + | 02/18/ | Appointment | Rehabilitation | Erika Ernst, | | | 2019 | | | DO [address] | | | | | | [place] [address] | | | | | | [phone] | | | | | | | | | | | | Genesis Ayon, OT | | +--------+ + + + + | 02/25/ | Office | Primary Care | Erika Ernst, | | | 2019 | Visit | | DO [address] | | | | | | [place] [address] | | | | | | [phone] | | | | | | | [...] | | | | | [place] [address] | | | | | | [phone] | | | | | | | | +--------+ + + + + | 02/27/ | Appointment | Radiology | Dhara, | | | 2019 | | | [address] | | | | | | 4TH [facility], | | | | | | [place] [address] | | | | | | [phone] | | | | | | | [...] [place] | | | | | | [place] [address] | | | | | | [phone] | | | | | | | [...] [place] | | | | | | [address] | | | | | | [phone] | | | | | | | [...] | | | | | [place] [address] | | | | | | [phone] | | | | | | | | | | | | Azul Yeboah, | | | | | | MD [address] | | | | | | [place] | | | | | | [place] [address] | | | | | | [phone] | | | | | | | [...] | | | | | | [place] [address] | | | | | | [phone] | | | | | | | | +--------+ + + + + documented as of this encounter Visit Diagnoses Not on filedocumented in this encounter"
--- OUTSIDE RECORDS SUMMARY | ~2020-02-18 | XMS | Encounter Summary ---
Demographics + + + | Address | [address] | | | [place] [address] | + + + | Home Phone | | + + + | Preferred Language | Unknown | + + + | Marital Status | Single | + + + | Restorationism Affiliation | Unknown | + + + | Race | Unknown | + + + | Ethnic Group | Unknown | + + + Author + + + | Author | [facility] | | | and [place] | + + + | Organization | [facility] | | | [...] Team Providers + +------+ + | Care Positive Printer Operator Name | Role | Phone | + +------+ + | Erika Ernst DO | PCP | | + +------+ + Reason for Visit + + + | Reason | Comments | + + + | Appointment Question | | + + + Encounter Details +--------+ + + + + | Date | Type | Department | Care Team | Description | +--------+ + + + + | 08/08/ | Telephone | [facility] | Luis Nichole MD | Appointment Question | | 2019 | | [facility] | [address] | | | | | CLIN[address] | [place] | | | | | [address] [place], | [address] | | | | | [place] [address] | | | | | | [phone] | | | +--------+ + + + [...] | | | | | [place] [address] | | | | | | [phone] | | | | | | | | | | | | Julia Fisher, | | | | | | PT | | +--------+ + + + + | 02/18/ | Appointment | Rehabilitation | Erika Ernst, | | | 2019 | | | DO [address] | | | | | | [place] [address] | | | | | | [phone] | | | | | | | | | | | | Genesis Ayon, OT | | +--------+ + + + + | 02/25/ | Office | Primary Care | Erika Ernst, | | | 2019 | Visit | | DO [address] | | | | | | [place] [address] | | | | | | [phone] | | | | | | | [...] | | | | | [place] [address] | | | | | | [phone] | | | | | | | | +--------+ + + + + | 02/27/ | Appointment | Radiology | Dhara, | | | 2019 | | | [address] | | | | | | 4TH [facility], | | | | | | [place] [address] | | | | | | [phone] | | | | | | | | +--------+ + + + + | 03/04/ | Appointment | Rehabilitation | Genesis Ayon OT | | | 2019 | | | | | +--------+ + + + + | 03/09/ | Office | Orthopedic Surgery | Jeffrey Gandhi, | | | 2019 | Visit | | [address] [facility] | | | | | | [place] [address] | | | | | | [phone] | | | | | | | [...] [address] | | | | | | [address] | | | | | | [place] | | | | | | [address] | | | | | | [phone] | | | | | | | [...] | | | | | [place] [address] | | | | | | [phone] | | | | | | | | | | | | Azul Yeboah, | | | | | | MD [address] | | | | | | [place] | | | | | | [place] [address] | | | | | | [phone] | | | | | | | [...] | | | | | | [place] [address] | | | | | | [phone] | | | | | | | | +--------+ + + + + documented as of this encounter Visit Diagnoses Not on filedocumented in this encounter"
--- OUTSIDE RECORDS SUMMARY | ~2020-02-18 | XMS | Encounter Summary ---
Demographics + + + | Address | [address] | | | [place] [address] | + + + | Home Phone | | + + + | Preferred Language | Unknown | + + + | Marital Status | Single | + + + | Scientologist Affiliation | Unknown | + + + | Race | Unknown | + + + | Ethnic Group | Unknown | + + + Author + + + | Author | [facility] | | | and [place] | + + + | Organization | [facility] | | | [...] Team Providers + +------+ + | Care Cargo Worker Name | Role | Phone | + [...] [address] | | | | | [place] [address] | | | | | | [phone] | | | +--------+ + + + [...] DO | | | | | | [place] [address] | | | | | | [phone] | | | | | | | | | | | | Julia Fisher, | | | | | | PT | | +--------+ + + + + | 02/18/ | Appointment | Rehabilitation | Erika Ernst, | | | 2019 | | | DO [address] | | | | | | [place] [address] | | | | | | [phone] | | | | | | | | | | | | Genesis Ayon OT | | +--------+ + + + + | 02/25/ | Office | Primary Care | Erika Ernst, | | | 2019 | Visit | | DO [address] | | | | | | [place] [address] | | | | | | [phone] | | | | | | | | +--------+ + + + + | 02/25/ | Appointment | Rehabilitation | Genesis Ayno OT | | | 2019 | | | | | +--------+ + + + + | 02/26/ | Virtual | Rehabilitation | Usha Rodriguez | | | 2019 | Office | | MD [address] | | | | Visit | | [address] [place] | | | | | | [place] [address] | | | | | | [phone] | | | | | | | | +--------+ + + + + | 02/27/ | Appointment | Radiology | Dhara, | | | 2019 | | | [address] | | | | | | 4TH [facility], | | | | | | [place] [address] | | | | | | [phone] | | | | | | | | +--------+ + + + + | 03/04/ | Appointment | Rehabilitation | Genesis Ayon OT | | | 2019 | | | | | +--------+ + + + + | 03/09/ | Office | Orthopedic Surgery | Jeffrey Gandhi, | | | 2019 | Visit | | [address] | | | | | | [place] [address] | | | | | | [phone] | | | | | | | [...] [place] | | | | | | [address] | | | | | | [phone] | | | | | | | [...] | | | | | [place] [address] | | | | | | [phone] | | | | | | | | | | | | Azul Yeboah, | | | | | | MD [address] | | | | | | [place] | | | | | | [place] [address] | | | | | | [phone] | | | | | | | [...] | | | | | | [place] [address] | | | | | | [phone] | | | | | | | | +--------+ + + + + documented as of this encounter Visit Diagnoses Not on filedocumented in this encounter"
--- OUTSIDE RECORDS SUMMARY | ~2020-02-18 | XMS | Encounter Summary ---
Demographics + + + | Address | [address] | | | [place] [address] | + + + | Home Phone [...] Author + + + | Author | [facility] | | | and [place] | + + + | Organization | [facility] | | | and [...] Team Providers + +------+ + | Care Specialist Physicians Name | Role | Phone | + +------+ + PCP | Unavailable | + +------+ + Encounter Details +--------+ + + + + | Date | Type | Department | Care Team | Description | +--------+ + + + + | 10/28/ | [facility] | Caro Zendejas | | | 2013 | Encounter | [facility] | Vale, PORTFOLIO ANALYST [address] | | | | | MEDICAL [facility] [address] | [facility], [place] | | | | | [address] [facility], | [address] | | | | | [place] [address] | [phone] | | | | | [phone] | | | +--------+ + + + [...] | | | | | [place] [address] | | | | | | [phone] | | | | | | | | | | | | Julia Fisher, | | | | | | PT | | +--------+ + + + + | 02/18/ | Appointment | Rehabilitation | Erika Ernst, | | | 2019 | | | DO [address] | | | | | | [place] [address] | | | | | | [phone] | | | | | | | | | | | | Genesis Ayon, OT | | +--------+ + + + + | 02/25/ | Office | Primary Care | Erika Ernst, | | | 2019 | Visit | | DO [address] | | | | | | [place] [address] | | | | | | [phone] | | | | | | | [...] [place] | | | | | | [place] [address] | | | | | | [phone] | | | | | | | | +--------+ + + + + | 02/27/ | Appointment | Radiology | Dhara, | | | 2019 | | | [address] | | | | | | 4TH [facility], | | | | | | [place] [address] | | | | | | [phone] | | | | | | | | +--------+ + + + + | 03/04/ | Appointment | Rehabilitation | Genesis Ayon OT | | | 2019 | | | | | +--------+ + + + + | 03/09/ | Office | Orthopedic Surgery | Jeffrey Gandhi, | | | 2019 | Visit | | [address] | | | | | | [place] [address] | | | | | | [phone] | | | | | | | [...] [place] | | | | | | [address] | | | | | | [phone] | | | | | | | [...] | | | | | [place] [address] | | | | | | [phone] | | | | | | | | | | | | Azul Yeboah, | | | | | | MD [address] | | | | | | [place] | | | | | | [place] [address] | | | | | | [phone] | | | | | | | [...] | | | | | | [place] [address] | | | | | | [phone] | | | | | | | | +--------+ + + + + documented as of this encounter Visit Diagnoses Not on filedocumented in this encounter"
--- OUTSIDE RECORDS SUMMARY | ~2020-02-18 | XMS | Encounter Summary ---
Demographics + + + | Address | [address] | | | [place] [address] | + + + | Home Phone | | + + + | Preferred Language | Unknown | + + + | Marital Status | Single | + + + | Mormonism Affiliation | Unknown | + + + | Race | Unknown | + + + | Ethnic Group | Unknown | + + + Author + + + | Author | [facility] | | | and [place] | + + + | Organization | [facility] | | | [...] Team Providers + +------+ + | Care Contact Center Assistant Name | Role | Phone | + +------+ + | Erika Ernst DO | PCP | | + +------+ + Reason for Visit + + + | Reason | Comments | + + + | Referral Question | | + + + Encounter Details +--------+ + + + + | Date | Type | Department | Care Team | Description | +--------+ + + + + | 01/16/ | Telephone | [facility] [facility] | Erika Ernst, | Referral Question | | 2019 | | [facility] | DO [address] [place] | | | | | MEDICAL CLIN[facility] [address] | [facility] [place] [address] | | | | | [address] [place], | [phone] | | | | | [place] [address] | | | | | | [phone] | | | +--------+ + + + [...] | 2019 | | | DO [address] | | | | | | [place] [address] | | | | | | [phone] | | | | | | | | | | | | Forma, Julia M, | | | | | | PT | | +--------+ + + + + | 02/18/ | Appointment | Rehabilitation | Erika Ernst, | | | 2019 | | | DO [address] | | | | | | [place] [address] | | | | | | [phone] | | | | | | | | | | | | Genesis Ayon OT | | +--------+ + + + + | 02/25/ | Office | Primary Care | Erika Ernst, | | | 2019 | Visit | | DO [address] | | | | | | [place] [address] | | | | | | [phone] | | | | | | | [...] | | Visit | | [address] | | | | | | [place] [address] | | | | | | [phone] | | | | | | | | +--------+ + + + + | 02/27/ | Appointment | Radiology | Dhara, | | | 2019 | | | [address] | | | | | | 4TH [facility], | | | | | | [place] [address] | | | | | | [phone] | | | | | | | | +--------+ + + + + | 03/04/ | Appointment | Rehabilitation | Genesis Ayon OT | | | 2019 | | | | | +--------+ + + + + | 03/09/ | Office | Orthopedic Surgery | Jeffrey Gandhi | | | 2019 | Visit | | [address] | | | | | | [place] [address] | | | | | | [phone] | | | | | | | [...] [place] | | | | | | [address] | | | | | | [phone] | | | | | | | [...] | | | | | [place] [address] | | | | | | [phone] | | | | | | | | | | | | Azul Yeboah, | | | | | | MD [address] | | | | | | [place] | | | | | | [place] [address] | | | | | | [phone] | | | | | | | [...] | | | | | | [place] [address] | | | | | | [phone] | | | | | | | | +--------+ + + + + documented as of this encounter Visit Diagnoses Not on filedocumented in this encounter"
--- OUTSIDE RECORDS SUMMARY | ~2020-02-18 | XMS | Encounter Summary ---
Demographics + + + | Address | [address] | | | [place] [address] | + + + | Home Phone | | + + + | Preferred Language | Unknown | + + + | Marital Status | Single | + + + | Anabaptist Affiliation | Unknown | + + + | Race | Unknown | + + + | Ethnic Group | Unknown | + + + Author + + + | Author | [facility] | | | and [place] | + + + | Organization | [facility] | | | [...] Team Providers + +------+ + | Care Donation Specialist Name | Role | Phone | + +------+ + | Erika Ernst DO | PCP | | + +------+ + Reason for Visit + + + | Reason | Comments | + + + | Closed Head Injury | | | Without Loc | | + + + Encounter Details +--------+ + + + + | Date | Type | Department | Care Team | Description | +--------+ + + + + | 12/25/ | Telephone | [facility] [facility] | Pedro Pablo Cerrato, | Closed Head Injury | | 2019 | | [facility] | DNP [address] | Without Loc | | | | MEDICAL CLINIC [address] | [place] [address] | | | | | [address] [place], | [phone] | | | | | [place] [address] | | | | | | [phone] | | | +--------+ + + + [...] | | | | | [place] [address] | | | | | | [phone] | | | | | | | | | | | | Julia Fisher, | | | | | | PT | | +--------+ + + + + | 02/18/ | Appointment | Rehabilitation | Erika Ernst, | | | 2019 | | | DO [address] | | | | | | [place] [address] | | | | | | [phone] | | | | | | | | | | | | Genesis Ayon, OT | | +--------+ + + + + | 02/25/ | Office | Primary Care | Erika Ernst, | | | 2019 | Visit | | DO [address] | | | | | | [place] [address] | | | | | | [phone] | | | | | | | [...] | | | | | [place] [address] | | | | | | [phone] | | | | | | | | +--------+ + + + + | 02/27/ | Appointment | Radiology | Dhara, | | | 2019 | | | [address] | | | | | | 4TH [facility], | | | | | | [place] [address] | | | | | | [phone] | | | | | | | | +--------+ + + + + | 03/04/ | Appointment | Rehabilitation | Genesis Ayon OT | | | 2019 | | | | | +--------+ + + + + | 03/09/ | Office | Orthopedic Surgery | Jeffrey Gandhi, | | | 2019 | Visit | | [address] | | | | | | [place] [address] | | | | | | [phone] | | | | | | | [...] [place] | | | | | | [address] | | | | | | [phone] | | | | | | | [...] | | | | | [place] [address] | | | | | | [phone] | | | | | | | | | | | | Azul Yeboah, | | | | | | MD [address] | | | | | | [place] | | | | | | [place] [address] | | | | | | [phone] | | | | | | | [...] | | | | | | [place] [address] | | | | | | [phone] | | | | | | | | +--------+ + + + + documented as of this encounter Visit Diagnoses Not on filedocumented in this encounter"
--- OUTSIDE RECORDS SUMMARY | ~2020-02-18 | XMS | Encounter Summary ---
Demographics + + + | Address | [address] | | | [place] [address] | + + + | Home Phone | | + + + | Preferred Language | Unknown | + + + | Marital Status | Single | + + + | Sabianism Affiliation | Unknown | + + + | Race | Unknown | + + + | Ethnic Group | Unknown | + + + Author + + + | Author | [facility] | | | and [place] | + + + | Organization | [facility] | | | [...] Team Providers + +------+ + | Care Design Draftsman Name | Role | Phone | + +------+ + PCP | Unavailable | + +------+ + Encounter Details +--------+ + + + + | Date | Type | Department | Care Team | Description | +--------+ + + + + | 06/18/ | Hospital | [place] [facility] | Heather Yip, | | | 2016 | Encounter | [facility] | STAVE BLOCK SPLITTER [address] | | | | | [address] [place] | [place] [address] | | | | | [place], [place] | [phone] | | | | | [address] | | | | | | [phone] | | | +--------+ + + + [...] | 0 | 02/11/20 | | | (PANCHONASE) 50 | | | | 16 | [...] | | 2019 | | | DO [address] [place] [address] | | | | | | [place] [address] | | | | | | [phone] | | | | | | | | | | | | Julia Fisher, | | | | | | PT | | +--------+ + + + + | 02/18/ | Appointment | Rehabilitation | Erika Ernst, | | | 2019 | | | DO [address] [place] | | | | | | [place] [address] | | | | | | [phone] | | | | | | | | | | | | Genesis Ayon, SUSAN | | +--------+ + + + + | 02/25/ | Office | Primary Care | Erika Ernst, | | | 2019 | Visit | | DO [address] [place] | | | | | | [place] [address] | | | | | | [phone] | | | | | | | [...] | | | | | [place] [address] | | | | | | [phone] | | | | | | | | +--------+ + + + + | 02/27/ | Appointment | Radiology | Dhara, | | | 2019 | | | [address] | | | | | | [address] [place], | | | | | | [place] [address] | | | | | | [phone] | | | | | | | [...] [place] | | | | | | [place] [address] | | | | | | [phone] | | | | | | | [...] [place] | | | | | | [address] | | | | | | [phone] | | | | | | | [...] | | | | | [place] [address] | | | | | | [phone] | | | | | | | | | | | | Azul Yeboah, | | | | | | MD [address] | | | | | | [place] | | | | | | [place] [address] | | | | | | [phone] | | | | | | | [...] | | | | | | [place] [address] | | | | | | [phone] | | | | | | | | +--------+ + + + + documented as of this encounter Visit Diagnoses Not on filedocumented in this encounter"
--- OUTSIDE RECORDS SUMMARY | ~2020-02-18 | XMS | Encounter Summary ---
Demographics + + + | Address | [address] | | | [place] [address] | + + + | Home Phone | | + + + | Preferred Language | Unknown | + + + | Marital Status | Single | + + + | Oriental Orthodox Affiliation | Unknown | + + + | Race | Unknown | + + + | Ethnic Group | Unknown | + + + Author + + + | Author | [facility] | | | and [place] | + + + | Organization | [facility] | | | [...] Team Providers + +------+ + | Care Student Accounts Manager Name | Role | Phone | + +------+ + | Erika Ernst DO | PCP | | + +------+ + Reason for Visit + + + | Reason | Comments | + + + | Shortness of Breath | asthma | + + + Encounter Details +--------+ + + + + | Date | Type | Department | Care Team | Description | +--------+ + + + + | 04/21/ | Emergency | [facility] | Lauryn Messer, | Asthma due to | | 2018 | | [facility] | PROFESSOR OF THEATRE [address] | environmental | | | | CENTER [address] | [place] [address] | allergies (Primary | | | | [place], [place] | [phone] | Dx); Moderate | | | | [address] | | asthma, unspecified | | | | [phone] | | whether complicated, | | | | | | unspecified whether | | | | | | persistent; | | | | | | Seasonal allergic | | | | | | rhinitis, | | | | | | unspecified trigger; | | | | | | Anxiety | +--------+ + + + + Social [...] + + + | Blood Pressure | 148/82 | 04/21/2019 4:35 PM | | | | | PDT | | + + + + + | Pulse | 74 | 04/21/2019 5:02 PM | | | | | PDT | | + + + + + | Temperature | 36.2 C (97.2 F) | 04/21/2019 4:35 PM | | | | | PDT | | + + + + + | Respiratory Rate | 18 | 04/21/2019 4:35 PM | | | | | PDT | | + + + + + | Oxygen Saturation | 95% | 04/21/2019 5:02 PM | | | | | PDT | | + + + + + | Inhaled Oxygen | - | - | | | Concentration | | | | + + + + + | Weight | 167.8 kg (370 lb) | 04/21/2019 4:35 PM | | | | | PDT | | + + + + + | Height | 177.8 cm (5' 10") | 04/21/2019 4:35 PM | | | | | PDT | | + + + + + | Body Mass Index | 53.09 | 04/21/2019 4:35 PM | | | | | PDT | | + + + + + documented in this encounter Discharge Instructions Instructions Lauryn Messer FNP - 04/21/2019Rest, increase fluids at least 2 liters of water daily. Continue all medication as previously prescribed and follow up with PCP in 2 da ys. Follow up with Pulmonary as scheduled. Mucinex DM for the next 5-7 days. Tylenol or ibup rofen for fever or pain. ER if SOB, wheezing, chest pain worsening symptoms. AttachmentsThe following attachments cannot be sent through Care Everywhere.Asthma, Control ling Your (Urdu)Allergic Rhinitis (Urdu)Anxiety Disorders, Understanding (Urdu)docu mented in this encounter Medications at Time of [...] A SMALL AMOUNT | | 0 | 05/20/20 | | | CREA | to affected [...] albuterol 2.5 mg/3 | Inhale 1-2 | 60 vial | 0 | 04/21/20 | | | mL nebulizer | treatments in | | | 19 | 9 | | solution | nebulizer every 20 | | | | | | | minutes for 3 doses, | | | | | | | then 1-4 treatments | | | | | | | every 1-4 hours as | | | | | | | needed | | | | | + + + +---------+ + + | | Inhale 1 puff into | 1 | 5 | 08/07/20 | | | albuterol-ipratropiu | the lungs every 4 | Inhaler | | 18 | 9 | | m (COMBIVENT | hours as needed for | | | | | | RESPIMAT) 100-20 | Shortness of Breath. | | | | | | mcg/puff inhaler | | | | | | + + + +---------+ + + | azithromycin | Take 1 tablet by | 7 | 0 | 04/16/20 | | | (ZITHROMAX) 500 MG | mouth Daily. | tablet | | 19 | 9 | | tabletIndications: | | | | | | | Moderate persistent | | | | | | | asthma with | | | | | | | exacerbation, | | | | | | | Environmental | | | | | | | allergies | | | | | | + + + +---------+ + + | beclomethasone | Inhale 2 puffs into | 2 | 11 | 02/29/20 | | | (QVAR) 80 mcg/puff | the lungs 2 times | Inhaler | | 19 | 9 | | inhaler | daily. | | | | | + + + +---------+ + + | busPIRone (BUSPAR) | Take 15 mg TID | 90 | 5 | 01/04/20 | | | 15 mg tablet | | tablet | | 19 | 9 | + + + +---------+ + + | Cetirizine HCl | Take by mouth. Once | | 0 | | | | (ZYRTEC PO) | a week | | | | 0 | + + + +---------+ + + | Cholecalciferol | Take 1 tablet by | 16 | 0 | 04/12/20 | | | (VITAMIN D3) 69779 | mouth Once a week | tablet | | 19 | 9 | | units TABS | for 16 doses. | | | | | + + + +---------+ + + | cyclobenzaprine | TID prn | 30 | 2 | 02/29/20 | | | (FLEXERIL) 10 mg | | tablet | | 19 | 9 | | tablet | | | | | | + + + +---------+ + + | diclofenac | apply 1 gram | 100 g | 3 | 05/13/20 | | | (VOLTAREN) 1% GEL | topically twice a | | | 19 | 9 | | | day if needed | | | | | + + + +---------+ + + | diclofenac | Apply 4 g topically | 100 g | 2 | 03/13/20 | | | (VOLTAREN) 1% GEL | 4 times daily. | | | 19 | 9 | + + + +---------+ + + | meclizine | Take 1 tablet by | 60 | 0 | 12/19/19 | | | (ANTIVERT) 12.5 mg | mouth every 6 hours | tablet | | 19 | 9 | | tablet | as needed. Prn | | | | | | | dizziness | | | | | + + + +---------+ + + | montelukast | Take 1 tablet by | 30 | 11 | 08/07/20 | | | (SINGULAIR) 10 mg | mouth nightly. | tablet | | 18 | 9 | | tablet | | | | | | + + + +---------+ + + | predniSONE | Take by mouth 6 | 41 | 0 | 04/12/20 | | | (DELTASONE) 10 mg | tablets (60 mg) days | tablet | | 19 | 9 | | tablet | 1-5; then 4 tablets | | | | | | | (40 mg) on day 6; | | | | | | | then 3 tablets (30 | | | | | | | mg) on day 7; then 2 | | | | | | | tablets (20 mg) on | | | | | | | day 8; then 1 tablet | | | | | | | (10 mg) on day 9; | | | | | | | and 1/2 tablet (5 | | | | | | | mg) on day 10 then | | | | | | | stop | | | | | + + + +---------+ + + | | Take 1 tablet by | 14 | 0 | 04/21/20 | | | pseudoephedrine-guai | mouth 2 times daily. | tablet | | 19 | 9 | | FENesin (MUCINEX D) | | | | | | | 60-600 mg per 12 hr | | | | | | | [...] | | | | | [place] [address] | | | | | | [phone] | | | | | | | | | | | | Julia Fisher, | | | | | | PT | | +--------+ + + + + | 02/18/ | Appointment | Rehabilitation | Erika Ernst, | | | 2019 | | | DO [address] [place] | | | | | | [place] [address] | | | | | | [phone] | | | | | | | | | | | | [facility] | | +--------+ + + + + | 02/25/ | Office | Primary Care | Erika Ernst, | | | 2019 | Visit | | DO [address] | | | | | | [place] [address] | | | | | | [phone] | | | | | | | [...] | | | | | [place] [address] | | | | | | [phone] | | | | | | | | +--------+ + + + + | 02/27/ | Appointment | Radiology | Dhara, | | | 2019 | | | DWAINE Ross [address] [place], | | | | | | [place] [address] | | | | | | [phone] | | | | | | | | +--------+ + + + + | 03/04/ | Appointment | Rehabilitation | [facility] OT | | | 2019 | | | | | +--------+ + + + + | 03/09/ | Office | Orthopedic Surgery | Jeffrey Gandhi, | | | 2019 | Visit | | [address] | | | | | | [place] [address] | | | | | | [phone] | | | | | | | [...] 03/19/ | Office | Obstetrics and | Stephanie Avery | | | 2019 | Visit | Gynecology | DO Radha [address] | | | | | [address] | | | | | | [place], [place] | | | | | | [address] | | | | | | [phone] | | | | | | | [...] | | | | | [place] [address] | | | | | | [phone] | | | | | | | | | | | | Azul Yeboah, | | | | | | MD [address] | | | | | | [place] | | | | | | [place] [address] | | | | | | [phone] | | | | | | | [...] | | | | | | [place] [address] | | | | | | [phone] | | | | | | | | +--------+ + + + + + +------+--------+ + + | Name | Type | Priori | Associated Diagnoses | Date/Time | | | | ty | | | + +------+--------+ + + | ED INFORMATION | YARITZA | Routin | | 04/21/2019 4:32 PM | | EXCHANGE | | e | | PDT | + +------+--------+ + + + +------+--------+ + + | Name | Type | Priori | Associated Diagnoses | Order Schedule | | | | ty | | | + +------+--------+ + + | DME: Nebulizer | DME | Routin | Asthma due to | DME 1 Time for 1 | | | | e | environmental | Occurrences starting | | | | | allergies | 04/21/2019 until | | | | | | 04/21/2019 | + +------+--------+ + + documented as of this encounter Procedures + +--------+ + + + | Procedure Name | Priori | Date/Time | Associated Diagnosis | Comments | | | ty | | | | + +--------+ + + + | XR CHEST PA AND | STAT | 04/21/2019 | | Results for this | | LATERAL | | 5:18 PM | | procedure are in the | | | | PDT | | results section. | + +--------+ + + + | ED INFORMATION | Routin | 04/21/2019 | | | | EXCHANGE | e | 4:32 PM | | | | | | PDT | | | + +--------+ + + + +---+--------+ | | | | | Proced | | | ure | | | Note - | | | Destiny, | | | Lab In | | | | | | Hlseve | | | n - | | | 04/21/ | | | 2019 | | | 4:33 | | | PM PDT | | | | | | Format | | | ting | | | of | | | this | | | note | | | might | | | be | | | differ | | | ent | | | from | | | the | | | origin | | | al.COL | | | LECTIV | | | E?NOTI | | | FICATI | | | ON?07/ | | | 21/201 | | | 9 | | | 16:30? | | | NOBLIT | | | , | | | ANDREA | | | C?MRN: | | | | | | [id number] | | | [id number] | | | riteri | | | a Met | | | PDMP | | | 2 | | | Facili | | | ties | | | In 90 | | | Days | | | 5 | | | Visits | | | In | | | 365 | | | DaysSe | | | curity | | | and | | | Safety | | | No | | | [...] | | | ron | | | for | | | this | | | patien | | | t. | | | Please | | | check | | | your | | | facili | | | ty's | | | medica | | | l | | | record | | | s | | | system | | | .Presc | | | riptio | | | n Drug | | | | | | Report | | | (12 | | | Mo.)Rx | | | | | | Detail | | | sFill | | | Date | | | Drug | | | Descri | | | ption | | | Qty. | | | Prescr | | | iber | | | CS MED | | | | | | 2019-0 | | | 6-20 | | | TRAMAD | | | OL HCL | | | 50 MG | | | | | | TABLET | | | 30 | | | YARI | | | TROUW, | | | MD 4 | | | 21.429 | | | | | | 2019-0 | | | 4-25 | | | TRAMAD | | | OL HCL | | | 50 MG | | | | | | TABLET | | | 30 | | | STEPHANIE | | | LUIS FERNANDO, | | | DPM 4 | | | 21.429 | | | | | | 2018-1 | | | 1-15 | | | TRAMAD | | | OL HCL | | | 50 MG | | | | | | TABLET | | | 20 | | | ERIKA | | | CHAD | | | , DO 4 | | | 20 | | | 2018-1 | | | 0-30 | | | TRAMAD | | | OL HCL | | | 50 MG | | | | | | TABLET | | | 20 | | | ERIKA | | | CHAD | | | , DO 4 | | | 20 | | | 2018-1 | | | 0-19 | | | OXYCOD | | | ONE-AC | | | ETAMIN | | | OPHEN | | | 5-325 | | | 30 | | | JEFFREY | | | | | | MACIE, | | | MD 2 | | | 45 | | | 2018-0 | | | 9-05 | | | TRAMAD | | | OL HCL | | | 50 MG | | | | | | TABLET | | | 30 | | | ERIKA | | | CHAD | | | , DO 4 | | | 15 Rx | | | | | | Summar | | | yMetri | | | c | | | Count | | | CS | | | II-V | | | Rx 6 | | | CS-II | | | Rx 1 | | | Quanti | | | ty | | | Dispen | | | sed | | | 160 | | | Unique | | | | | | Prescr | | | ibers | | | 4 | | | Unique | | | | | | Pharma | | | cies 2 | | | | | | Benzos | | | 0 | | | Opioid | | | s 6 | | | Long | | | Acting | | | | | | Opioid | | | s 0 | | | E.D. | | | Visit | | | Count | | | (12 | | | mo.)Fa | | | cility | | | | | | Visits | | | St. | | | [facility] | | | josue | | | Medica | | | l | | | Center | | | -[place] | | | io 1 | | | [place] | | | [facility] | | | | | [facility] | | | al 4 | | | [facility] | | | y | | | Hospit | | | al 1 | | | Total | | | 6 | | | Note: | | | Visits | | | | | | indica | | | te | | | total | | | known | | | visits | | | . | | | Recent | | | | | | Emerge | | | ncy | | | Depart | | | ment | | | Visit | | | Summar | | | yDate | | | Facili | | | ty | | | City | | | State | | | Type | | | Diagno | | | ses or | | | Chief | | | | | | Compla | | | int | | | Ilia | | | 21, | | | 2019 | | | [place] | | | [place] | [place] | | | [place] | | | Emerge | | | ncy | | | | | | Shortn | | | ess of | | | | | | Breath | | | Ilia | | | 7, | | | 2019 | | | St[facility] | | | [facility] | | | josue | | | [facility] | | | nt[facility] | | | | | | [place] | | | [place] | | | Emerge | | | ncy | | | 0. | | | INCISI | | | ON WET | | | NEED | | | REBAND | | | AGED | | | May 4, | | | 2019 | | | [place] | | | [place] | | | [place] | | | [place] | | | [place] | | | Emerge | | | ncy | | | Left | | | Foot | | | Pain | | | Foot | | | Pain | | | | | | Other | | | chroni | | | c pain | | | | | | Pain | | | in | | | right | | | foot | | | Feb | | | 27, | | | 2019 | | | [place] | | | [place] | | [place] | | | [place] | | | [place] | | | Emerge | | | ncy | | | Low | | | Blood | | | Pressu | | | re | | | Oct | | | 24, | | | 2018 | | | [place] | | | [place] | | | [place] | | | [place] | | | [place] | | | Emerge | | | ncy | | | Wrist | | | | | | Infect | | | ion | | | Wrist | | | Pain | | | | | | Encoun | | | ter | | | for | | | other | | | specif | | | ied | | | surgic | | | al | | | afterc | | | are | | | Aug | | | 30, | | | 2018 | | | [facility] | | | y H. | | [...] | | visits | | | . Care | | | | | | TeamPr | | | ovider | | | PRC | | | Type | | | Phone | | | Fax | | | Servic | | | e | | | Dates | | | KRISTY | | | JOHNNY | | | , | | | ELOINA | | | K, MD | | | Family | | | | | | Medici | | | ne | | | Curren | | | t | | | CHAD | | | , | | | ERIKA | | | A , DO | | | | | | Family | | | | | | Medici | | | ne: | | | Geriat | | | radha | | | Medici | | | ne | | | Curren | | | t | | | CHAD | | | ERIKA | | | A | | | Primar | | | y Care | | | | | | [phone] | | | [phone] | | | [phone] | | | Curren | | | t | | | Kristy | | | johnny | | | [...] | | | t | | | Collec | | | tive | | | Portal | | | This | | | patien | | | t has | | | regist | | | ered | | | at the | | | | | | [place] | | | [facility] | | | | | | [facility] | | | al | | | Emerge | | | ncy | | | Depart | | | ment | | | For | | | more | | | inform | | | ation | | | visit: | | | | | | https: | | | //secu | | | [email or web address] | | | ecarep | | | [email or web address] | | | m/[email or web address] | | | ent/e5 | | | [id number] | | | -[phone]- | | | [phone] | | | [phone] | | | [phone] | | | [phone] | | | PLEASE | | | NOTE: | | | 1. | | | Any | | | care | | | recomm | | | endati | | | ons | | | and | | | other | | | clinic | | | al | | | inform | | | ation | | | are | | | provid | | | ed as | | | guidel | | | ron | | | or for | | | | | | histor | | | ical | | | purpos | | | es | | | only, | | | and | | | provid | | | ers | | | should | | | | | | exerci | | | se | | | their | | | own | | | clinic | | | al | | | judgme | | | nt | | | when | | | provid | | | ing | | | care. | | | 2. | | | You | | | may | | | only | | | use | | | this | | | inform | | | ation | | | for | | | purpos | | | es of | | | treatm | | | ent, | | | paymen | | | t or | | | health | | | care | | | operat | | | ions | | | activi | | | ties, | | | and | | | subjec | | | t to | | | the | | | limita | | | tions | | | of | | | applic | | | able | | | Collec | | | tive | | | Polici | | | es. | | | 3. | | | You | | | should | | | | | | consul | | | t | | | direct | | | ly | | | with | | | the | | | organi | | | zation | | | that | | | provid | | | ed a | | | care | | | guidel | | | ine or | | | other | | | | | | clinic | | | al | | | histor | | | y with | | | any | | | questi | | | ons | | | about | | | additi | | | onal | | | inform | | | ation | | | or | | | accura | | | cy or | | | comple | | | teness | | | of | | | inform | | | ation | | | provid | | | ed.? | | | 2019 | | | Collec | | | tive | | | Medica | | | l | | | Techn[employer] | | | logies | | | , Inc[employer] | | | - | | | [email or web address] | | | llecti | | | vemedi | | | [email or web address] | | | m | +---+--------+ documented in this encounter Results XR Chest PA and Lateral (04/21/2019 5:18 PM PDT) + + | Specimen | + + | | + + + + + | Impressions | Performed At | + + + | IMPRESSION: No acute cardiopulmonary process. Dictated by: | [facility] | | Braydon Stockton Electronically Signed by: Braydon Stockton on | | | 04/22/2019 8:02 AM | | + + + + + + | Narrative | Performed At | + + + | EXAMINATION: XR CHEST PA AND LATERAL HISTORY: SHORTNESS OF | [facility] | | BREATH COMPARISON STUDY: December 30, 2016 FINDINGS: The lungs | | | are hypoventilated but clear. No pleural effusion. No | | | pneumothorax. Cardiomediastinal silhouette is normal. No acute | | | osseous process. | | + + + + + | Procedure Note | + + | Destiny, Rad Results In - 04/22/2019 8:05 AM PDT EXAMINATION:XR CHEST PA AND | | LATERALHISTORY:SHORTNESS OF BREATHCOMPARISON STUDY:December 30, 2016FINDINGS:The lungs are | | hypoventilated but clear. No pleural effusion. No pneumothorax. Cardiomediastinal | | silhouette is normal. No acute osseous process.IMPRESSION: IMPRESSION:No acute | | cardiopulmonary process.Dictated by: Braydon Booneectronically Signed by: Braydon Stockton on 04/22/2019 8:02 AM | |COMPARISON STUDY: | |December 30, 2016 | | | |FINDINGS: | |The lungs are hypoventilated but clear. No pleural effusion. No pneumothorax. Cardiomedi astinal silhouette is normal. No acute osseous process. | | | |IMPRESSION: | |IMPRESSION: | |No acute cardiopulmonary process. | | | |Dictated by: Braydon Stockton | | | | | + + + +---------+ + + | Performing | Address | City/State/Zipcode | Phone Number | | Organization | | | | + +---------+ + + | [facility] | | | | + +---------+ + + documented in this encounter Visit Diagnoses + + | Diagnosis | + + | Asthma due to environmental allergies - Primary | + + | Moderate asthma, unspecified whether complicated, unspecified whether persistent | + + | Seasonal allergic rhinitis, unspecified trigger | + + | Anxiety Anxiety state, unspecified | + + documented in this encounter Administered Medications + +--------+ +--------+------+------+ | Medication Order | MAR | Action | Dose | Rate | Site | | | Action | Date | | | | + +--------+ +--------+------+------+ | albuterol 2.5 mg/3 mL nebulizer | Given | 04/21/20 | 2.5 mg | | | | solution 2.5 mg 2.5 mg, | | 19 5:01 | | | | | Nebulization, RT Once, Sun | | PM PDT | | | | | 04/21/19 at 1715, For 1 dose, RT | | | | | | | will administer., | | | | | | + +--------+ +--------+------+------+ +---+---+ | | | +---+---+ documented in this encounter
--- OUTSIDE RECORDS SUMMARY | ~2020-02-18 | XMS | Encounter Summary ---
Demographics + + + | Address | [address] | | | [place] [address] | + + + | Home Phone | | + + + | Preferred Language | Unknown | + + + | Marital Status | Single | + + + | Restorationist Affiliation | Unknown | + + + | Race | Unknown | + + + | Ethnic Group | Unknown | + + + Author + + + | Author | [facility] | | | and [place] | + + + | Organization | [facility] | | | [...] Team Providers + +------+ + | Care Caregivers Non Medical Name | Role | Phone | + +------+ + | Erika Ernst DO | PCP | | + +------+ + Encounter Details +--------+ + + + + | Date | Type | Department | Care Team | Description | +--------+ + + + + | 06/10/ | Hospital | [place] [facility] | Emily Avery | Dysmenorrhea; | | 2019 | Encounter | Hospital Ultrasound | DO Jackelyn Garcia | Menorrhagia with | | | | [address] [place] | [address] | irregular cycle | | | | [place], [place] | [place] | | | | | [address] | [address] | | | | | [phone] | [phone] | | | | | | | [...] | UNABLE TO FIND | Med Name: nell | | 0 | | | + [...] | | Take 1 tablet by | 20 | 0 | 06/04/20 | | | amoxicillin-clavulan | mouth 2 times daily | tablet | | 19 | 9 | | ate (AUGMENTIN) | for 10 days. | | | | | | 875-125 mg per | | | | | | [...] + + | busPIRone (BUSPAR) | Take 7.5 mg six | 180 | 11 | 06/04/20 | | | 7.5 MG tablet | times a day | tablet | | 19 | 0 | + + + +---------+ + + | Cetirizine HCl | Take by mouth. Once | | 0 | | | | (ZYRTEC PO) | a week | | | | 0 | + + + +---------+ + + | Cholecalciferol | Take 1 tablet by | 16 | 0 | 04/12/20 | | | (VITAMIN D3) 60494 | mouth Once a week | tablet [...] + + | ferrous sulfate | Take 1 tablet by | 60 | 5 | 05/20/20 | | | 325 mg tablet | mouth 2 times daily. | tablet | | 19 | 9 | + + + +---------+ + + | meclizine | take 1 tablet by | 60 | 0 | 05/24/20 | | | (ANTIVERT) 12.5 mg | mouth every 6 hours | tablet | | 19 | 0 | | tablet | if [...] | | | | | [place] [address] | | | | | | [phone] | | | | | | | | | | | | Julia Fisher, | | | | | | PT | | +--------+ + + + + | 02/18/ | Appointment | Rehabilitation | Erkia Ernst, | | | 2019 | | | DO [address] | | | | | | [place] [address] | | | | | | [phone] | | | | | | | | | | | | [facility] | | +--------+ + + + + | 02/25/ | Office | Primary Care | Erika Ernst, | | | 2019 | Visit | | [address] [place] [address] | | | | | | [place] [address] | | | | | | [phone] | | | | | | | [...] | | | | | [place] [address] | | | | | | [phone] | | | | | | | | +--------+ + + + + | 02/27/ | Appointment | Radiology | Dhara, | | | 2019 | | | DWAINE Ross [address] [place], | | | | | | [place] [address] | | | | | | [phone] | | | | | | | | +--------+ + + + + | 03/04/ | Appointment | Rehabilitation | Genesis Ayon OT | | | 2019 | | | | | +--------+ + + + + | 03/09/ | Office | Orthopedic Surgery | Jeffrey Gandhi, | | | 2019 | Visit | | [address] | | | | | | [place] [address] | | | | | | [phone] | | | | | | | [...] [place] | | | | | | [address] | | | | | | [phone] | | | | | | | [...] | | | | | [place] [address] | | | | | | [phone] | | | | | | | | | | | | Azul Yeboah, | | | | | | [address] | | | | | | [place] | | | | | | [place] [address] | | | | | | [phone] | | | | | | | [...] | | | | | | [place] [address] | | | | | | [phone] | | | | | | | | +--------+ + + + + documented as of this encounter Procedures + +--------+ + + + | Procedure Name | Priori | Date/Time | Associated Diagnosis | Comments | | | ty | | | | + +--------+ + + + | US NON-OB | Routin | 06/10/2019 | Dysmenorrhea | Results for this | | TRANSVAGINAL | e | 8:25 AM | Menorrhagia with | procedure are in the | | | | PDT | irregular cycle | results section. | + +--------+ + + + documented in this encounter Results Non-Ob Transvaginal (06/10/2019 8:25 AM PDT) + + | Specimen | + + | | + + + + + | Impressions | Performed At | + + + | IMPRESSION: No focal abnormality is identified. Dictated by: | [facility] | | Braydon Stockton Electronically Signed by: Braydon Stockton on | | | 06/10/2019 9:23 AM | | + + + + + + | Narrative | Performed At | + + + | EXAMINATION: US NON-OB TRANSVAGINAL HISTORY: dysmenorrhea | [facility] | | COMPARISON STUDY: None FINDINGS: The uterus is anteflexed. | | | The uterus is normal in appearance. The uterus measures 8.4 x 5.0 x 3 | | | point cm. The endometrial stripe measures 13 mm and is homogeneous | | | The right ovary measures 2.2 x 2.0 x 2.8 cm. Normal blood flow. | | | The left ovary measures 2.7 x 1.6 x 3.5 cm. Normal blood flow. No | | | free fluid. | | + + + + + | Procedure Note | + + | Mitchel, Rad Results In - 06/10/2019 9:27 AM PDT EXAMINATION: | | US NON-OB TRANSVAGINAL | | | | HISTORY: | | dysmenorrhea | | | | COMPARISON STUDY: | | None | | | | FINDINGS: | | | | The uterus is anteflexed. | | The uterus is normal in appearance. | | The uterus measures 8.4 x 5.0 x 3 point cm. | | The endometrial stripe measures 13 mm and is homogeneous | | The right ovary measures 2.2 x 2.0 x 2.8 cm. Normal blood flow. | | The left ovary measures 2.7 x 1.6 x 3.5 cm. Normal blood flow. | | No free fluid. | | | | IMPRESSION: | | IMPRESSION: | | No focal abnormality is identified. | | | | Dictated by: Braydon Stockton | | | | | + + + +---------+ + + | Performing | Address | City/State/Zipcode | Phone Number | | Organization | | | | + +---------+ + + | [facility] | | | | + +---------+ + + documented in this encounter Visit Diagnoses + + | Diagnosis | + + | Dysmenorrhea | + + | Menorrhagia with irregular cycle Excessive or frequent menstruation | + + documented in this encounter"
--- OUTSIDE RECORDS SUMMARY | ~2020-02-18 | XMS | Encounter Summary ---
Demographics + + + | Address | [address] | | | [place] [address] | + + + | Home Phone [...] Team Providers + +------+ + | Care Embedded Firmware Developer Name | Role | Phone | + [...] + + | Closed | Specialty | Physical | Diagnoses | Klever, | Cc Wgr | | | Services | Therapy / | Sprain of | Erika A, DO | Therapy Pt | | | Required | Rehabilitatio | calcaneofibu | [address] | [address] | | | | n | lar ligament | [place] | | | | | of left | [place] [address] | [place] [address] | | | | | ankle, | Phone: | Phone: | | | | | initial | [phone] | [phone] | | | | | encounter | Fax: | Fax: | | | | | Procedures | [phone] | [phone] | | | | | PT EVAL AND | | | | | | | TREAT | | | +--------+ + + + + + Encounter Details +--------+ + + + + | Date | Type | Department | Care Team | Description | +--------+ + + + + | 08/28/ | Hospital | [place] [facility] | Erika Ernst, | Sprain of left | | 2017 | Encounter | HOSPITAL THERAPY PT | DO [address] [place] | ankle, subsequent | | | | [address] [place] | [place] [address] | encounter (Primary | | | | [place], [place] | [phone] | Dx) | | | | [address] | | | | | | [phone] | Nick Barrios I, PT | | +--------+ + + + [...] + + + +---------+ + + | pseudoePHEDrine | Take 30 mg by mouth | | 0 | | | | (SUDAFED) 30 mg | every 6 hours as | | | | 8 | | tablet | needed for | | | | | | | Congestion. | | | | | + + + +---------+ + + documented as of this encounter Progress Notes Nick Barrios I, PT - 08/28/2018 11:49 AM PSTFormatting of this note might be different fro m the original. [facility] THERAPY PT [address] [place] [address] Physical Therapy Daily Treatment Note Date: 08/28/2018 Patient Information Patient Name: Andrea Suh Date of : 1990 Age: 28 y.o. Encounter Diagnoses Code Name Primary? S93.402D Sprain of left ankle, subsequent encounter Yes Date of Onset: 06/11/2018 Referring Provider: Erika Ernst DO Objective Pain Assessment: Pain Rating Pre Assessment: 5 Pain Rating Post Assessment: 5 Location: L medial ankle Standardized Tests: Lower Extremity Functional Scale (LEFS) Lower Extremity Functional Scale Goal: 75 Lower Extremity Functional Scale Goal Status: Ongoing; 31 at last assessment Strength: LLE Strength L Hip Flexion: 4+/5 L Hip Extension: 4+/5 L Hip ABduction: 4/5 Left Internal Rotation: 4+/5 good plus, left Left External Rotation: 4/5 good, left L Knee Flexion: 4+/5 L Knee Extension: 5/5 L Ankle Dorsiflexion: 4/5 L Ankle Plantar Flexion: 5/5 RLE Strength R Hip Flexion: 4+/5 R Hip Extension: 4+/5 R Hip ABduction: 4/5 Right Internal Rotation: 4+/5 good plus, right Right External Rotation: 4+/5 good plus, right R Knee Flexion: 4+/5 R Knee Extension: 5/5 R Ankle Dorsiflexion: 4+/5 R Ankle Plantar Flexion: 5/5 MMT: Hip, Rehab Eval Left Internal Rotation: 4+/5 good plus, left Right Internal Rotation: 4+/5 good plus, right Left External Rotation: 4/5 good, left Right External Rotation: 4+/5 good plus, right Today's Treatment Patient Name: Andrea Steelesuresh/: 1990/ Start Time: 0730 Stop time: 0825 Duration: 55 minutes Timed Treatment Codes: 40 minutes # of PT Visits to Date: 10 Visit Summary: S: Patient reports that she is feeling good, but a little sore on the inside of her L ankle. States that soreness is from a lot of driving since last session. Patient n otes that she has not been doing many home exercises since last vsit. A: B LE strength asses sed with weakness noted in B hip abduction, IR/ER, and painful/weak L ankle inversion. Patie nt is able to complete LE strengthening exercise with greated degree of difficulty when comp ared to last session. Able to ambulate on TM for 10 minutes with minimal reports of discomfo rt. Patient continues to demonstrate balance deficits with L ankle during NMR exercises. Pat ient's pain persists without significant reduction in intensity of pain. Physical therapy re jamar necessary in order to improve LE strength and pain symptoms.; one barrier is lack of c ompliance with HEP. Next Visit Information: Progress LE strength and balance exercises with steps, bosu, bridge progression Therapy Interventions HEP: NEW: supine bridges 3x10 progressing to 15 4x/wk // Sidelying hip abduction 3x10 progr essing to 15 4x/wk // ONGOING: Tandem stance 2x60 second holds each foot position 1x/day // Using RTB in door jam rather than holding onto with hands. Discontinue PF with theraband in favor of SL heel raise with TROMMEL TENDER. ONGOING: SLS on even surface 3x30 seconds 1x/day // Double leg heel raise 3x10 3x/wk // forward/lateral step ups on 8" step 3x10 3x/wk each // standin g achilles stretch 3x30 seconds 1x/day. // 4 way ankle PRE yellow theraband 3x10 each direct ion 3x/wk. // Ankle inversion/eversion 3x10 progressing to 20 1x/day // ankle ABC's 3x/day. // Ankle pumps 3x10 progressing to 20 repetitions 1x/day // ankle circles 3x10 progressing t o 20 repetitions each direction 1x/day PT INTERVENTION 1: TE - (32 minutes) DBL heel raise 2x30 even ground // TM ambulation 10 mi nutes @ 1.1 mph // Alternating lateral step up and overs 2x10 each side 8 inch step // Sidel jj hip abduction 2x10 each LE // Supine bridges 2x10 // L LE step up with opposite hip fle xion 2x10 // additional time required for rest between exercises PT INTERVENTION 2: NMR (8 minutes) Rhomberg stance on bosu eyes open TROMMEL TENDER as needed 1 minute // SLS on bosu TROMMEL TENDER grab bar as needed 1x1 minute 2x30 seconds // additional time required f or rest between exercises and explanation of tasks. PT INTERVENTION 3: TA (5 minutes) Assessment of B LE strength Assessment Rehabilitation potential: Patient demonstrates good potential to achieve established goals and good potential to achieve prior status to address the documented impairments by particip ating in skilled physical therapy services. Goals: Patient Reported Outcome Goals Lower Extremity Functional Scale Goal: 75 Lower Extremity Functional Scale Goal Status: Ongoing; 31 at last assessment OP PT Goals Goal 1: Patient will demonstrate I with HEP for 3 consecutive weeks in order to improve fun ctional outcomes with physical therapy. Goal 1 Status: Goal met; but patient has since failed to maintain compliance with HEP since last session Goal 2: Patient will improve L ankle ROM equal to or greater than R ankle Goal 2 Status: Ongoing; demonstrates L > R for inversion and eversion; R > L PF/DF Goal 3: Patient will tolerate walking for 1 mile without taking breaks due to pain to retur n to previous level of activity. Goal 3 Status: Ongoing; able to ambulate 0.24 miles prior to stopping due to pain symptoms. Goal 4: Patient will experience reduced L ankle pain of 1/10 or less for 2 consecutive week s in order to return to previous level of activity. Goal 4 Status: Ongoing; pain rated at 5/10 today Electronically signed by: Nick Barrios PT, 08/28/2018 11:52 Patient Name: Andrea Suh/: 1990/ documented in this en counter Plan of Treatment +--------+ + + + + | Date | Type | Specialty | Care Team | Description | +--------+ + + + + | 02/18/ | Appointment | Rehabilitation | Erika Ernst, | | | 2019 | | | DO ST | | | | | | [place] [address] | | | | | | [phone] | | | | | | | | | | | | Julia Fisher, | | | | | | PT | | +--------+ + + + + | 02/18/ | Appointment | Rehabilitation | Erika Ernst, | | | 2019 | | | DO [address] [place] | | | | | | [place] [address] | | | | | | [phone] | | | | | | | | | | | | Genesis Ayon OT | | +--------+ + + + + | 02/25/ | Office | Primary Care | Erika Ernst, | | | 2019 | Visit | | DO [address] [place] | | | | | | [place] [address] | | | | | | [phone] | | | | | | | [...] DONAL | | | | | | [place] [address] | | | | | | [phone] | | | | | | | | +--------+ + + + + | 02/27/ | Appointment | Radiology | Dhara, | | | 2019 | | | DWAINE Ross [address] | | | | | | [address] [facility] [place], | | | | | | [place] [address] | | | | | | [phone] | | | | | | | [...] MOORE | | | | | | [place] [address] | | | | | | [phone] | | | | | | | [...] [place] | | | | | | [address] | | | | | | [phone] | | | | | | | [...] | | | | | [place] [address] | | | | | | [phone] | | | | | | | | | | | | Azul Yeboah, | | | | | | MD [address] | | | | | | [place] | | | | | | [place] [address] | | | | | | [phone] | | | | | | | | +--------+ + + + + | 04/08/ | Appointment | Nutrition | Janel Webster | | | 2019 | | | [address], [address] | | +--------+ + + + + | 05/21/ | Office | Neurology | Dhara, | | | 2020 | Visit | | Angel[address]arioDWAINE [address] | | | | | | [address] [facility] [place], | | | | | | [place] [address] | | | | | | [phone] | | | | | | | | +--------+ + + + + documented as of this encounter Visit Diagnoses + + | Diagnosis | + + | Sprain of left ankle, subsequent encounter - Primary | + + documented in this encounter
--- OUTSIDE RECORDS SUMMARY | ~2020-02-18 | XMS | Encounter Summary ---
Demographics + + + | Address | [address] | | | [place] [address] | + + + | Home Phone | | + + + | Preferred Language | Unknown | + + + | Marital Status | Single | + + + | Baptism Affiliation | Unknown | + + + | Race | Unknown | + + + | Ethnic Group | Unknown | + + + Author + + + | Author | [facility] | | | and [place] | + + + | Organization | [facility] | | | and [...] Team Providers + +------+ + | Care Box Stapler Name | Role | Phone | + +------+ + | Erika Ernst DO | PCP | | + +------+ + Reason for Referral Diagnostic/Screening (Routine) +--------+--------+ + + + + | Status | Reason | Specialty | Diagnoses / | Referred By | Referred To | | | | | Procedures | Contact | Contact | +--------+--------+ + + + + | Closed | | Radiology | Diagnoses | Petrusek, | | | | | | Maxillary | Denis | | | | | | sinusitis, | MD Sae | | | | | | unspecified | [address] | | | | | | chronicity | [address] | | | | | | Ethmoid | [place], [place] | | | | | | sinusitis, | [address] | | | | | | unspecified | Phone: | | | | | | chronicity | [phone] | | | | | | Procedures | Fax: | | | | | | CT Sinus WO | [phone] | | | | | | Contrast | | | +--------+--------+ + + + + Reason for Visit Diagnostic/Screening (Routine) +--------+--------+ + + + + | Status | Reason | Specialty | Diagnoses / | Referred By | Referred To | | | | | Procedures | Contact | Contact | +--------+--------+ + + + + | Closed | | Radiology | Diagnoses | Petrusek, | | | | | | Maxillary | Denis | | | | | | sinusitis, | MD Sae | | | | | | unspecified | [address] | | | | | | chronicity | [address] | | | | | | Ethmoid | [place], [place] | | | | | | sinusitis, | [address] | | | | | | unspecified | Phone: | | | | | | chronicity | [phone] | | | | | | Procedures | Fax: | | | | | | CT Sinus WO | [phone] | | | | | | Contrast | | | +--------+--------+ + + + + Encounter Details +--------+ + + + + | Date | Type | Department | Care Team | Description | +--------+ + + + + | 12/13/ | Hospital | [place] [facility] | Denis Wheeler | Maxillary sinusitis, | | 2019 | Encounter | [facility] [address] | MD Sae [address] | unspecified | | | | [address] | [address] | chronicity; Ethmoid | | | | [place], [place] | [place] [address] | sinusitis, | | | | [address] | [phone] | unspecified | | | | [phone] | | chronicity | +--------+ + + + + Social [...] + + | busPIRone (BUSPAR) | Take 30 mg BID | 60 | 11 | 12/14/19 | | | 30 MG tablet | | tablet | | 19 | 9 | + + + +---------+ + + | Cetirizine HCl | Take by mouth. Once | | 0 | | | | (ZYRTEC PO) | a week | | | | 0 | + + + +---------+ + + | Cholecalciferol | Take 1 tablet by | 16 | 0 | 11/26/19 | | | (VITAMIN D3) 23166 | mouth Once a week | tablet | | 19 | 9 | | units TABS | for 16 doses. | | | | | + + + +---------+ + + | D3-50 48465 units | | | 0 | 12/13/19 | | | CAPS | | | | 19 | 9 | + + + +---------+ + + | diclofenac | Apply 4 g topically | 100 g | 1 | 12/12/19 | | | (VOLTAREN) 1% GEL | 3 times daily. | | | 19 | 9 | + + + +---------+ + + | fluconazole | Take 1 tablet by | 3 | 1 | 12/14/19 | | | (DIFLUCAN) 150 mg | mouth Daily for 3 | tablet | | 19 | 9 | | tablet | days. | | | | | + + + +---------+ + + | losartan (COZAAR) | Take 1 tablet by | 30 | 11 | 11/23/19 | | | 50 mg tablet | mouth Daily. | tablet | | 19 | 9 | + + + +---------+ + + | metoprolol | Take one tab for 3 | 7 | 0 | 11/23/19 | | | succinate | day then reduce to | tablet | | 19 | 9 | | (TOPROL-XL) 25 mg 24 | ever other day the | | | | | | hr | DC | | | | | | tabletIndications: [...] + + | QVAR REDIHALER 80 | | | 0 | 11/26/19 | | | MCG/ACT inhaler | | | | 19 | 9 | [...] | | | | | [place] [address] | | | | | | [phone] | | | | | | | | | | | | Julia Fisher, | | | | | | PT | | +--------+ + + + + | 02/18/ | Appointment | Rehabilitation | Erika Ernst, | | | 2019 | | | DO [address] [place] | | | | | | [place] [address] | | | | | | [phone] | | | | | | | | | | | | Genesis Ayon OT | | +--------+ + + + + | 02/25/ | Office | Primary Care | Erika Ernst, | | | 2019 | Visit | | [address] [place] [address] | | | | | | [place] [address] | | | | | | [phone] | | | | | | | [...] | | | | | [place] [address] | | | | | | [phone] | | | | | | | | +--------+ + + + + | 02/27/ | Appointment | Radiology | Dhara, | | | 2019 | | | DWAINE Ross [address] | | | [address] [place], | | | | | | [place] [address] | | | | | | [phone] | | | | | | | | +--------+ + + + + | 03/04/ | Appointment | Rehabilitation | Genesis Ayon OT | | | 2019 | | | | | +--------+ + + + + | 03/09/ | Office | Orthopedic Surgery | Jeffrey Gandhi, | | | 2019 | Visit | | [address] | | | | | | [place] [address] | | | | | | [phone] | | | | | | | [...] [place] | | | | | | [address] | | | | | | [phone] | | | | | | | | +--------+ + + + + | 03/25/ | Appointment | Rehabilitation | Genesis Ayon OT | | | 2019 | | | | | +--------+ + + + + | 04/08/ | Office | Neurology | rEika Ernst, | | | 2019 | Visit | | DO [address] [place] | | | | | | [place] [address] | | | | | | [phone] | | | | | | | | | | | | Azul Yeboah, | | | | | | [address] | | | | | | [place] | | | | | | [place] [address] | | | | | | [phone] | | | | | | | [...] | | | | | | [place] [address] | | | | | | [phone] | | | | | | | | +--------+ + + + + documented as of this encounter Procedures + +--------+ + + + | Procedure Name | Priori | Date/Time | Associated Diagnosis | Comments | | | ty | | | | + +--------+ + + + | CT SINUS WO CONTRAST | Routin | 12/13/2018 | Maxillary | Results for this | | | e | 9:22 AM | sinusitis, | procedure are in the | | | | PDT | unspecified | results section. | | | | | chronicity Ethmoid | | | | | | sinusitis, | | | | | | unspecified | | | | | | chronicity | | + +--------+ + + + documented in this encounter Results CT Sinus WO Contrast (12/13/2018 9:22 AM PDT) + + | Specimen | + + | | + + + + + | Impressions | Performed At | + + + | IMPRESSION: No evidence of acute or chronic sinus disease. Minimal | [facility] | | sphenoid sinus mucosal thickening. Dictated by: Braydon Stockton | | | | | + + + + + + | Narrative | Performed At | + + + | EXAMINATION: CT SINUS WO CONTRAST HISTORY: sinusitis | [facility] | | COMPARISON STUDY: No comparison. TECHNIQUE: 2.5 mm axial slices | | | were acquired through the sinuses without contrast. Multiplanar | | | reconstruction was performed. DOSE REPORT: CTDIvol: 28.8 mGy. | | | DLP: 372 mGy-cm. Automated exposure control was utilized. | | | FINDINGS: The frontal sinuses are clear. The ethmoid sinuses are | | | clear. Ethmoid sinuses do appear to be hyperaerated. The maxillary | | | sinuses are clear. The sphenoid sinuses have minimal mucosal | | | thickening posteriorly. The ostiomeatal complexes are patent. | | | Mastoid air cells are clear. Right middle turbinate kevin bullosa. | | | Visualized orbits are unremarkable. Visualized brain parenchyma is | | | unremarkable. Temporomandibular joints are unremarkable. Visualized | | | parotid glands are unremarkable. | | + + + + + | Procedure Note | + + | Mitchel, Rad Results In - 12/13/2018 10:35 AM PDT EXAMINATION:CT SINUS WO | | CONTRASTHISTORY:sinusitisCOMPARISON STUDY:No comparison.TECHNIQUE:2.5 mm axial slices | | were acquired through the sinuses without contrast. Multiplanar reconstruction was | | performed.DOSE REPORT:CTDIvol: 28.8 mGy. DLP: 372 mGy-cm. Automated exposure control | | was utilized.FINDINGS:The frontal sinuses are clear.The ethmoid sinuses are clear. | | Ethmoid sinuses do appear to be hyperaerated.The maxillary sinuses are clear.The | | sphenoid sinuses have minimal mucosal thickening posteriorly.The ostiomeatal complexes | | are patent.Mastoid air cells are clear.Right middle turbinate kevin bullosa.Visualized | | orbits are unremarkable.Visualized brain parenchyma is unremarkable.Temporomandibular | | joints are unremarkable.Visualized parotid glands are unremarkable.IMPRESSION: | | IMPRESSION:No evidence of acute or chronic sinus disease.Minimal sphenoid sinus mucosal | | thickening.Dictated by: Braydon PryoramElectronically Signed by: Braydno Stockton on | | 12/13/2018 10:32 AM | |CTDIvol: 28.8 mGy. DLP: 372 mGy-cm. Automated exposure control was utilized. | | | |FINDINGS: | |The frontal sinuses are clear. | |The ethmoid sinuses are clear. Ethmoid sinuses do appear to be hyperaerated. | |The maxillary sinuses are clear. | |The sphenoid sinuses have minimal mucosal thickening posteriorly. | |The ostiomeatal complexes are patent. | |Mastoid air cells are clear. | |Right middle turbinate kevin bullosa. | |Visualized orbits are unremarkable. | |Visualized brain parenchyma is unremarkable. | |Temporomandibular joints are unremarkable. | |Visualized parotid glands are unremarkable. | | | |IMPRESSION: | |IMPRESSION: | |No evidence of acute or chronic sinus disease. | |Minimal sphenoid sinus mucosal thickening. | | | |Dictated by: Braydon Stockton | | | | | + + + +---------+ + + | Performing | Address | City/State/Zipcode | Phone Number | | Organization | | | | + +---------+ + + | [facility] | | | | + +---------+ + + documented in this encounter Visit Diagnoses + + | Diagnosis | + + | Maxillary sinusitis, unspecified chronicity | + + | Ethmoid sinusitis, unspecified chronicity | + + documented in this encounter"
--- OUTSIDE RECORDS SUMMARY | ~2020-02-18 | XMS | Encounter Summary ---
Demographics + + + | Address | [address] | | | [place] [address] | + + + | Home Phone [...] Team Providers + +------+ + | Care Field Sales Representative Name | Role | Phone | + [...] | Services | | Neuropathy | C, [address] | Luis Rubin MD | | | Required | | of right | [address], | [address] | | | | | upper | [place] | [address], [address] [place] | | | | | extremity | [place], [place] | [place], [place] | | | | | Procedures | [address] | [address] Phone: | | | | | [facility] | Phone: | [phone] | | | | | | [phone] | Fax: | | | | | | Fax: | [phone] | | | | | | [phone] | | +--------+ + + + + [...] | Required | | right index | [employer] | [address] | | | | | finger, | [address] | [place] | | | | | initial | [address] [place] | [place], [place] | | | | | encounter | [place] | [address] | | | | | Procedures | [address] | Phone: | | | | | [place] | Phone: | [phone] | | | | | | [phone] | Fax: | | | | | | Fax: | [phone] | | | | | | [phone] | | +--------+ + + + + + Encounter Details +--------+---------+ + + + | Date | Type | Department | Care Team | Description | +--------+---------+ + + + | 05/21/ | Office | [facility] [facility] | Travis Mlaone, DWAINE | Other sprain of | | 2019 | Visit | [facility] | [address] | right index finger, | | | | [address] [place] | [place], [place] | initial encounter | | | | [place], [place] | [address] | (Primary Dx); | | | | [address] | [phone] | Neuropathy of right | | | | [phone] | | upper extremity | +--------+---------+ + [...] | : 1990 | Medical Record Number:[id number] | Author: MOHSEN Martinez | Date of [...] mouth. Once a week Cholecalciferol (VITAMIN D3) 68309 units TABS Take 1 tablet by mouth [...] New distinct joint degenerative changes. Dictated by: Yaneli Bedolla Xr Wrist Right 3 + Vw [...] ser vices at a facility other than [facility]. Follow-up Return for consultation with neurology is [...] E.C.U. Tendon; Surgeon: Inocencio Noriega MD; Location: [facility] SURGERY RIGHT KIDNER PROCEDURE 01/20/2016 Surgeon: Fani Mahajan MD; Location: [facility] TENDON RELEASE TONSILLECTOMY WISDOM TOOTH EXTRACTION Family History Problem Relation Age of Onset Other (see comment) Mother gallbladder disease Hypertension Father Other (see comment) Father arrhymthmia Breast cancer Sister Cervical cancer Maternal Grandmother Heart attack Maternal Aunt PA Social History Socioeconomic History Marital status: Single [...] and their vital signs recorded by my title i instructional assistant today, a s found in this chart note. Electronically signed by: MOHSEN Martinez 05/21/2019 at 18:23 Note: Part of this report was transcribed using voice recognition software. Every effort wa s made to ensure accuracy. However, inadvertent computerized inward toll operator errors may be pre sent. CC: Erika [...] | | | | | [place] [address] | | | | | | [phone] | | | | | | | | | | | | Julia Fisher, | | | | | | PT | | +--------+ + + + + | 02/18/ | Appointment | Rehabilitation | Erika Ernst, | | | 2019 | | | DO [address] [place] | | | | | | [place] [address] | | | | | | [phone] | | | | | | | | | | | | Genesis Ayon, OT | | +--------+ + + + + | 02/25/ | Office | Primary Care | Erika Ernst, | | | 2019 | Visit | | DO [address] [place] [address] | | | | | | [place] [address] | | | | | | [phone] | | | | | | | [...] | | | | | [place] [address] | | | | | | [phone] | | | | | | | | +--------+ + + + + | 02/27/ | Appointment | Radiology | Dhara, | | | 2019 | | | DWAINE Ross [address] | | | [address] [place], | | | | | | [place] [address] | | | | | | [phone] | | | | | | | [...] ST | | | | | | [place] [address] | | | | | | [phone] | | | | | | | [...] [place] | | | | | | [address] | | | | | | [phone] | | | | | | | [...] | | | | | [place] [address] | | | | | | [phone] | | | | | | | | | | | | Azul Yeboah, | | | | | | [address] | | | | | | [place] | | | | | | [place] [address] | | | | | | [phone] | | | | | | | [...] | | | | | | [place] [address] | | | | | | [phone] | | | | | | | [...]
--- OUTSIDE RECORDS SUMMARY | ~2020-02-18 | XMS | Encounter Summary ---
Demographics + + + | Address | [address] | | | [place] [address] | + + + | Home Phone | | + + + | Preferred Language | Unknown | + + + | Marital Status | Single | + + + | Evangelical Affiliation | Unknown | + + + | Race | Unknown | + + + | Ethnic Group | Unknown | + + + Author + + + | Author | [facility] | | | and [place] | + + + | Organization | [facility] | | | [...] Team Providers + +------+ + | Care Software Quality Assurance Specialist Name | Role | Phone | + +------+ + PCP | Unavailable | + +------+ + Encounter Details +--------+ + + + + | Date | Type | Department | Care Team | Description | +--------+ + + + + | 11/30/ | [facility] | Nicanor Mckeon | | | 2015 | Encounter | [facility] | MD Caryn [address] | | | | | MEDICAL CL[facility] [address] | [place], [place] | | | | | [address] [facility], | [address] | | | | | [place] [address] | [phone] | | | | | [phone] | | | +--------+ + + + [...] | | | | | [place] [address] | | | | | | [phone] | | | | | | | | | | | | Julia Fisher, | | | | | | PT | | +--------+ + + + + | 02/18/ | Appointment | Rehabilitation | Erika Ernst, | | | 2019 | | | DO [address] | | | | | | [place] [address] | | | | | | [phone] | | | | | | | | | | | | Genesis Ayon, OT | | +--------+ + + + + | 02/25/ | Office | Primary Care | Erika Ernst, | | | 2019 | Visit | | DO [address] | | | | | | [place] [address] | | | | | | [phone] | | | | | | | [...] | | | | | [place] [address] | | | | | | [phone] | | | | | | | | +--------+ + + + + | 02/27/ | Appointment | Radiology | Dhara, | | | 2019 | | | [address] | | | | | | [address] [facility], | | | | | | [place] [address] | | | | | | [phone] | | | | | | | | +--------+ + + + + | 03/04/ | Appointment | Rehabilitation | Genesis Ayon OT | | | 2019 | | | | | +--------+ + + + + | 03/09/ | Office | Orthopedic Surgery | Jeffrey Gandhi, | | | 2019 | Visit | | [address] [facility] | | | | | | [place] [address] | | | | | | [phone] | | | | | | | [...] [place] | | | | | | [address] | | | | | | [phone] | | | | | | | [...] | | | | | [place] [address] | | | | | | [phone] | | | | | | | | | | | | Azlu Yeboah, | | | | | | MD [address] | | | | | | [place] | | | | | | [place] [address] | | | | | | [phone] | | | | | | | [...] | | | | | | [place] [address] | | | | | | [phone] | | | | | | | | +--------+ + + + + documented as of this encounter Visit Diagnoses Not on filedocumented in this encounter"
--- OUTSIDE RECORDS SUMMARY | ~2020-02-18 | XMS | Encounter Summary ---
Demographics + + + | Address | [address] | | | [place] [address] | + + + | Home Phone | | + + + | Preferred Language | Unknown | + + + | Marital Status | Single | + + + | Orthodoxy Affiliation | Unknown | + + + | Race | Unknown | + + + | Ethnic Group | Unknown | + + + Author + + + | Author | [facility] | | | and [place] | + + + | Organization | [facility] | | | [...] Team Providers + +------+ + | Care Interventional Tech Name | Role | Phone | + +------+ + | Erika Ernst DO | PCP | | + +------+ + Reason for Visit + + + | Reason | Comments | + + + | Gynecologic Exam | | + + + Evaluate & Treat (Routine) +--------+ + + + + + | Status | Reason | Specialty | Diagnoses / | Referred By | Referred To | | | | | Procedures | Contact | Contact | +--------+ + + + + + | Closed | Specialty | Obstetrics | Diagnoses | [facility], | [facility] | | | Services | and | Painful | Erika A, DO | Obgyn [address] | | | Required | Gynecology | menstrual | [address] | [address] | | | | | periods | [place], | [place] | | | | | Spotting | [place] [address] | [place], [place] | | | | | between | Phone: | [phone] | | | | | menses | [phone] | Phone: | | | | | | Fax: | [phone] | | | | | | [phone] | Fax: | | | | | | | [phone] | +--------+ + + + + + Encounter Details +--------+---------+ + + + | Date | Type | Department | Care Team | Description | +--------+---------+ + + + | 05/23/ | Office | [place] [facility] | Emily Avery | Dysmenorrhea | | 2019 | Visit | [facility] | DO [address] | (Primary Dx); | | | | [address] | [address] [place] | Menorrhagia with | | | | DR [address] [place], | [place], [place] | irregular cycle | | | | [place] [address] | [address] | | | | | [phone] | [phone] | | | | | | | | +--------+---------+ + + + Social History [...] + + + | Blood Pressure | 147/80 | 05/23/2019 4:27 PM | | | | | PDT | | + + + + + | Pulse | 90 | 05/23/2019 4:27 PM | | | | | PDT | | + + + + + | Temperature | - | - | | + + + + + | Respiratory Rate | 16 | 05/23/2019 4:27 PM | | | | | PDT | | + + + + + | Oxygen Saturation | - | - | | + + + + + | Inhaled Oxygen | - | - | | | Concentration | | | | + + + + + | Weight | 172.4 kg (380 lb) | 05/23/2019 4:27 PM | | | | | PDT | | + + + + + | Height | 177.8 cm (5' 10") | 05/23/2019 4:27 PM | | | | | PDT | | + + + + + | Body Mass Index | 54.52 | 05/23/2019 4:27 PM | | | | | PDT | | + + + + + documented in this encounter Progress Emily Canales, - 05/23/2019 4:30 PM PDTFormatting of this note might be diffe rent from the original. Andrea Suh is a 29 y.o. premenopausal female here for painful periods. Patient was referred by Dr. Ernst. Patient states her menses cycles average 4 days long with the first day being the most painful. She usually feels "crampy" before ovulation and before bleeding. Pain improves once bleeding starts. No recent US. Also notes asthma gets worse with menses cycles. Is scheduled to see Train Director. Patient started cycles at 12 and were mostly irregular. She states she was "forced on" depo which helped her bleeding but caused her to feel ill and lose a lot of weight. She has trie d to use prog/estrogen pill but had allergic reaction. Has not been on pills in 12 months. S he has been using condoms. No STD concerns and has had same partner. Patient would not like to have children at this time but does want children in the future. Patient recommended to h ave genetic testing before bearing children as she is of Ashkenazi Episcop[employer] descent. Explained this sounds like endometriosis and not fibroids, as fibroids are not a common cau se. Patient has been previously evaluated by other provider and had genetic testing done, as cancer is prevalent in her family. Patient is positive for two variants that are not well k nown at this time. We discussed using MRIs to decrease radiation exposure compared to mammog alex. Patient does not have history of endometriosis. Allergies Allergen Reactions Latex Rash Lexapro [Escitalopram] Palpitations Oxycodone Anaphylaxis and Shortness Of Breath Deblitane [Norethindrone] Hydrocodone Hives Uncoded Nonscreenable Allergen Other (See Comments) Other reaction(s): Proclivity to C-diff with certain antibiotics Adhesive & Tape Rash Current Outpatient Medications on File Prior to [...] mouth. Once a week Cholecalciferol (VITAMIN D3) 15463 units TABS Take 1 tablet by mouth Once a week for 16 doses. 16 tablet 0 cyclobenzaprine (FLEXERIL) 10 mg tablet TID prn 30 tablet 2 diclofenac (VOLTAREN) 1% GEL apply 1 gram topically twice a day if needed 100 g 3 diphenhydrAMINE (BENADRYL) 25 MG capsule Take 25 [...] th 2 times daily. 14 tablet 0 traMADol (ULTRAM) 50 mg tablet Take 50 mg by mouth every 6 hours as needed. No current facility-administered medications on file prior to visit. Berry Planter history: Menstrual history: Patient's last menstrual period was 05/18/2019. Control: condoms STD history: none Sexual history: Patient is sexuall active with Male. She has single partner/s. STD risk: very low risk of STD exposure. Testing desired: none ROS: General: negative Cardiovascular: no chest pain or dyspnea on exertion Respiratory: negative -Urinary: negative -Berry Planter: pelvic pain: moderate, abnormal bleeding. Psychiatric: negative PE : Vitals: 05/23/19 1627 BP: 147/80 Pulse: 90 Resp: 16 PainSc: 8 General: moderately obese female. She appears in no apparent distress Psych: oriented to time, place and person. Patient with normal affect. Recent Results (from the past 1008 hour(s)) Ferritin Collection Time: 05/17/19 16:54 Result Value Ref Range Ferritin 12.7 6.2 - 137.0 ng/mL Folate Collection Time: 05/17/19 16:54 Result Value Ref Range FOLATE 33.1 >=5.4 ng/mL Vitamin B-12 Collection Time: 05/17/19 16:54 Result Value Ref Range VITAMIN B-12 351 211 - 911 pg/mL Iron and Iron Binding Capacity Collection Time: 05/17/19 16:54 Result Value Ref Range Iron 16 (L) 50 - 170 ug/dL TIBC 353 250 - 450 ug/dL Iron Saturation 5 (L) 15 - 50 % CBC with Differential Collection Time: 05/17/19 16:54 Result Value Ref Range WBC 10.0 4.3 - 10.4 K/uL RBC 3.92 (L) 4.12 - 5.30 M/uL Hemoglobin 10.6 (L) 12.4 - 15.7 g/dL Hematocrit 33.8 (L) 37.7 - 47.0 % MCV 86.2 82.0 - 97.0 fL MCH 27.0 (L) 27.1 - 32.3 pg MCHC 31.4 (L) 32.0 - 36.9 g/dL RDW-CV 15.0 0.0 - 17.0 % Platelet Count 372 150 - 450 K/uL MPV 10.5 9.4 - 12.3 fL % Neutrophils 59.3 42.0 - 76.0 % % Lymphocytes 32.6 20.0 - 40.0 % % Monocytes 6.1 3.0 - 13.0 % % Eosinophils 1.2 0.0 - 7.0 % % Basophils 0.5 0.0 - 2.0 % % Immature Granulocytes 0.3 0.0 - 0.5 % Absolute Neutrophils 5.94 2.50 - 8.50 K/uL Absolute Lymphocytes 3.27 1.00 - 3.80 K/uL Absolute Monocytes 0.61 0.00 - 0.80 K/uL Absolute Eosinophils 0.12 0.00 - 0.70 K/uL Absolute Basophils 0.05 0.00 - 0.20 K/uL Absolute Immature Granulocytes 0.03 0.00 - 0.15 K/uL % nRBC 0 <=0 per 100 WBCs Absolute nRBC 0.00 0.00 - 0.01 K/uL Assessment/Plan: 1. Dysmenorrhea Patient having severe pelvic pain prior to starting menses that improves once bleeding star ts. I suspect endometriosis but we will begin with an ultrasound to evaluate. I recommended an IUD as this is not meant to be systemically absorbed and is also a good form of con trol. It also can decrease bleeding and slightly improve endometriosis pain if diagnosed. We also discussed cyclical progesterone as this is also a good form of control. We also discussed Orlissa but I will research if this causes problems with breast cancer. We also di scussed Kristen and how this is not a permanent fix as it will put patient in medical menopau se but will improve pain. We discussed PCOS is not likely the cause of pain. Ultimately we w ill discuss further options once ultrasound has resulted. Patient will be updated on results . - US Non-Ob Transvaginal; Future 2. Menorrhagia with irregular cycle See above. This documentation prepared by Dioni Amaya manager medical writing. All aspects of this chart revie wed for accuracy and content by Dr. Emily Avery at the date and time of service. Emily Avery DO 05/23/19 documented in this encounter Plan of Treatment +--------+ + + + + | Date | Type | Specialty | Care Team | Description | +--------+ + + + + | 02/18/ | Appointment | Rehabilitation | Erika Ernst, | | | 2019 | | | DO [address] | | | | | | [facility] [address] | | | | | | [phone] | | | | | | | | | | | | Julia Fisher, | | | | | | PT | | +--------+ + + + + | 02/18/ | Appointment | Rehabilitation | Erika Ernst, | | | 2019 | | | DO [address] | | | | | | [place] [address] | | | | | | [phone] | | | | | | | | | | | | Genesis Ayon OT | | +--------+ + + + + | 02/25/ | Office | Primary Care | Erika Ernst, | | | 2019 | Visit | | DO [address] | | | | | | [place] [address] | | | | | | [phone] | | | | | | | [...] | | | | | [place] [address] | | | | | | [phone] | | | | | | | | +--------+ + + + + | 02/27/ | Appointment | Radiology | Dhara, | | | 2019 | | | [address] | | | | | | [address] [facility] [place], | | | | | | [place] [address] | | | | | | [phone] | | | | | | | [...] | | | | [place] [address] | | | | | | [phone] | | | | | | | [...] [place] | | | | | | [address] | | | | | | [phone] | | | | | | | [...] | | | | | [place] [address] | | | | | | [phone] | | | | | | | | | | | | Azul Yeboah, | | | | | | MD [address] | | | | | | [place] | | | | | | [place] [address] | | | | | | [phone] | | | | | | | [...] | | | | | | [place] [address] | | | | | | [phone] | | | | | | | | +--------+ + + + + documented as of this encounter Results US Non-Ob Transvaginal (06/10/2019 8:25 AM PDT) + + | Specimen | + + | | + + + + + | Impressions | Performed At | + + + | IMPRESSION: No focal abnormality is identified. Dictated by: | [facility] | | Braydon Stockton Electronically Signed by: Braydon Stoctkon on | | | 06/10/2019 9:23 AM [...] | Diagnosis | + + | Dysmenorrhea - Primary | + + | Menorrhagia with irregular cycle Excessive or frequent menstruation | + + documented in this encounter
--- OUTSIDE RECORDS SUMMARY | ~2020-02-18 | XMS | Encounter Summary ---
Demographics + + + | Address | [address] | | | [place] [address] | + + + | Home Phone | | + + + | Preferred Language | Unknown | + + + | Marital Status | Single | + + + | Yazidism Affiliation | Unknown | + + + [...] Team Providers + +------+ + | Care Chain Maker Name | Role | Phone | + +------+ + | Erika Ernst DO | PCP | | + +------+ + Reason for Visit + + + | Reason | Comments | + + + | Care Coordination | | + + + Encounter Details +--------+ + + + + | Date | Type | Department | Care Team | Description | +--------+ + + + + | 12/31/ | Telephone | [place] [facility] | Evelyn Malik, | Care Coordination | | 2019 | | [facility] | Case | | | | | MEDICAL CLIN[facility] [address] | Cooler Room Worker-Clinical | | | | | [address] [facility] [place], | | | | | | [place] [address] | | | | | | [phone] | | | +--------+ + + + [...] 2019 | | | DO [address] | | | | | | [place] [address] | | | | | | [phone] | | | | | | | | | | | | Julia Fisher, | | | | | | PT | | +--------+ + + + + | 02/18/ | Appointment | Rehabilitation | Erika Ernst, | | | 2019 | | | DO [address] | | | | | | [place] [address] | | | | | | [phone] | | | | | | | | | | | | Genesis Ayon OT | | +--------+ + + + + | 02/25/ | Office | Primary Care | Erika Ernst, | | | 2019 | Visit | | DO [address] | | | | | | [place] [address] | | | | | | [phone] | | | | | | | [...] | | | | | [place] [address] | | | | | | [phone] | | | | | | | | +--------+ + + + + | 02/27/ | Appointment | Radiology | Dhara, | | | 2019 | | | [address] | | | | | | [address] [facility], | | | | | | [place] [address] | | | | | | [phone] | | | | | | | | +--------+ + + + + | 03/04/ | Appointment | Rehabilitation | Genesis Ayon OT | | | 2019 | | | | | +--------+ + + + + | 03/09/ | Office | Orthopedic Surgery | Jeffrey Gandhi, | | | 2019 | Visit | | [address] | | | | | | [place] [address] | | | | | | [phone] | | | | | | | [...] [place] | | | | | | [address] | | | | | | [phone] | | | | | | | [...] | | | | | [place] [address] | | | | | | [phone] | | | | | | | | | | | | Azul Yeboah, | | | | | | MD [address] | | | | | | [place] | | | | | | [place] [address] | | | | | | [phone] | | | | | | | [...] | | | | | | [place] [address] | | | | | | [phone] | | | | | | | | +--------+ + + + + documented as of this encounter Visit Diagnoses Not on filedocumented in this encounter"
--- OUTSIDE RECORDS SUMMARY | ~2020-02-18 | XMS | Encounter Summary ---
Demographics + + + | Address | [address] | | | [place] [address] | + + + | Home Phone [...] Team Providers + +------+ + | Care Bridge Club Manager Name | Role | Phone | + +------+ + | Erika Ernst DO | PCP | | + +------+ + Reason for Visit + + + | Reason | Comments | + + + | Referral (Follow up) | | + + + Encounter Details +--------+ + + + + | Date | Type | Department | Care Team | Description | +--------+ + + + + | 07/17/ | Telephone | [place] [facility] | Erika Ernst, | Referral (Follow up) | | 2019 | | [facility] | DO [address] | | | | | MEDICAL CLINIC [address] | [facility] [place] [address] | | | | | [address] [place], | [phone] | | | | | [place] [address] | | | | | | [phone] | | | +--------+ + + + [...] | | | | | [place] [address] | | | | | | [phone] | | | | | | | | | | | | Julia Fisher, | | | | | | PT | | +--------+ + + + + | 02/18/ | Appointment | Rehabilitation | Erika Ernst, | | | 2019 | | | DO [address] | | | | | | [place] [address] | | | | | | [phone] | | | | | | | | | | | | Genesis Ayon, OT | | +--------+ + + + + | 02/25/ | Office | Primary Care | Erika Ernst, | | | 2019 | Visit | | DO [address] | | | | | | [place] [address] | | | | | | [phone] | | | | | | | | +--------+ + + + + | 02/25/ | Appointment | Rehabilitation | Gneesis Ayon, SUSAN | | | 2019 | | | | | +--------+ + + + + | 02/26/ | Virtual | Rehabilitation | Usha Rodriguez | | 2019 | Office | | MD Precious [address] | | | | Visit | | [address] [place] | | | | | | [place] [address] | | | | | | [phone] | | | | | | | | +--------+ + + + + | 02/27/ | Appointment | Radiology | Dhara, | | | 2019 | | | [address] | | | | | | 4TH [facility], | | | | | | [place] [address] | | | | | | [phone] | | | | | | | | +--------+ + + + + | 03/04/ | Appointment | Rehabilitation | Genesis Ayon OT | | | 2019 | | | | | +--------+ + + + + | 03/09/ | Office | Orthopedic Surgery | Jeffrey Gandhi, | | | 2019 | Visit | | [facility] [facility] | | | | | | [place] [address] | | | | | | [phone] | | | | | | | [...] [place] | | | | | | [address] | | | | | | [phone] | | | | | | | [...] | | | | | [place] [address] | | | | | | [phone] | | | | | | | | | | | | Azul Yeboah, | | | | | | MD [address] | | | | | | [place] | | | | | | [place] [address] | | | | | | [phone] | | | | | | | | +--------+ + + + + | 04/08/ | Appointment | Nutrition | aJnel Webster | | | 2019 | | | [place], [place] | | +--------+ + + + + | 05/21/ | Office | Neurology | Dhara, | | | 2020 | Visit | | [address] | | | | | [address] [place], | | | | | | [place] [address] | | | | | | [phone] | | | | | | | | +--------+ + + + + documented as of this encounter Visit Diagnoses Not on filedocumented in this encounter"
--- OUTSIDE RECORDS SUMMARY | ~2020-02-18 | XMS | Encounter Summary ---
Demographics + + + | Address | [address] | | | [place] [address] | + + + | Home Phone [...] Team Providers + +------+ + | Care Ingot Buggy Operator Name | Role | Phone | + +------+ + | Erika Ernst DO | PCP | | + +------+ + Reason for Visit + + + | Reason | Comments | + + + | Medication Question | | + + + Encounter Details +--------+ + + + + | Date | Type | Department | Care Team | Description | +--------+ + + + + | 02/04/ | Telephone | [facility] [facility] | Erika Ernst, | Medication Question | | 2019 | | [facility] | DO [address] | | | | | MEDICAL CLINIC [address] | [facility] [place] [address] | | | | | [address] [facility], | [phone] | | | | | [place] [address] | | | | | | [phone] | | | +--------+ + + + [...] | 2019 | | | DO [address] [facility] [address] | | | | | | [place] [address] | | | | | | [phone] | | | | | | | | | | | | Julia Fisher, | | | | | | PT | | +--------+ + + + + | 02/18/ | Appointment | Rehabilitation | Erika Ernst, | | | 2019 | | | DO [address] | | | | | | [place] [address] | | | | | | [phone] | | | | | | | | | | | | Genesis Ayno OT | | +--------+ + + + + | 02/25/ | Office | Primary Care | Erika Ernst, | | | 2019 | Visit | | DO [address] | | | | | | [place] [address] | | | | | | [phone] | | | | | | | [...] | | | | | [place] [address] | | | | | | [phone] | | | | | | | | +--------+ + + + + | 02/27/ | Appointment | Radiology | Dhara, | | | 2019 | | | [address] | | | | | | 4TH [facility], | | | | | | [place] [address] | | | | | | [phone] | | | | | | | | +--------+ + + + + | 03/04/ | Appointment | Rehabilitation | Genesis Ayon OT | | | 2019 | | | | | +--------+ + + + + | 03/09/ | Office | Orthopedic Surgery | Jeffrey Gandhi, | | | 2019 | Visit | | [address] | | | | | | [place] [address] | | | | | | [phone] | | | | | | | [...] [place] | | | | | | [address] | | | | | | [phone] | | | | | | | [...] | | | | | [place] [address] | | | | | | [phone] | | | | | | | | | | | | Azul Yeboah, | | | | | | MD [address] | | | | | | [place] | | | | | | [place] [address] | | | | | | [phone] | | | | | | | [...] | | | | | | [place] [address] | | | | | | [phone] | | | | | | | | +--------+ + + + + documented as of this encounter Visit Diagnoses Not on filedocumented in this encounter"
--- OUTSIDE RECORDS SUMMARY | ~2020-02-18 | XMS | Encounter Summary ---
Demographics + + + | Address | [address] | | | [place] [address] | + + + | Home Phone | | + + + | Preferred Language | Unknown | + + + | Marital Status | Single | + + + | Synagogue Affiliation | Unknown | + + + | Race | Unknown | + + + | Ethnic Group | Unknown | + + + Author + + + | Author | [facility] | | | and [place] | + + + | Organization | [facility] | | | [...] Team Providers + +------+ + | Care Rap Artist Name | Role | Phone | + [...] Description | +--------+--------+ + + + | 05/24/ | Refill | [place] [facility] | Erika Ernst, | Medication Refill | | 2018 | | [facility] | DO [address] | | | | | MEDICAL CLINIC [address] | [place] [address] | | | | | [address] [place], | [phone] | | | | | [place] [address] | | | | | | [phone] | | | +--------+--------+ + + + [...] | | | | | [place] [address] | | | | | | [phone] | | | | | | | | | | | | Julia Fisher, | | | | | | PT | | +--------+ + + + + | 02/18/ | Appointment | Rehabilitation | Erika Ernst, | | | 2019 | | | DO [address] | | | | | | [place] [address] | | | | | | [phone] | | | | | | | | | | | | Genesis Ayon OT | | +--------+ + + + + | 02/25/ | Office | Primary Care | Erika Ernst, | | | 2019 | Visit | | DO [address] | | | | | | [place] [address] | | | | | | [phone] | | | | | | | [...] | | | | | | [place] [address] | | | | | | [phone] | | | | | | | | +--------+ + + + + | 02/27/ | Appointment | Radiology | Dhara, | | | 2019 | | | [address] | | | | | | 4TH [facility], | | | | | | [place] [address] | | | | | | [phone] | | | | | | | [...] [place] | | | | | | [place] [address] | | | | | | [phone] | | | | | | | [...] [place] | | | | | | [address] | | | | | | [phone] | | | | | | | [...] | | | | | [place] [address] | | | | | | [phone] | | | | | | | | | | | | Azul Yeboah, | | | | | | MD [address] | | | | | | [place] | | | | | | [place] [address] | | | | | | [phone] | | | | | | | [...] | | | | | | [place] [address] | | | | | | [phone] | | | | | | | | +--------+ + + + + documented as of this encounter Visit Diagnoses Not on filedocumented in this encounter"
--- OUTSIDE RECORDS SUMMARY | ~2020-02-18 | XMS | Encounter Summary ---
Demographics + + + | Address | [address] | | | [place] [address] | + + + | Home Phone | | + + + | Preferred Language | Unknown | + + + | Marital Status | Single | + + + | Pentecostalism Affiliation | Unknown | + + + | Race | Unknown | + + + | Ethnic Group | Unknown | + + + Author + + + | Author | [facility] | | | and [place] | + + + | Organization | [facility] | | [...] Providers + +------+ + | Care Senior Product Development Engineer Name | Role | Phone | + [...] | | | to excess | [place] [address] | | | | | | calories | Phone: | | | | | | without | [phone] | | | | | | serious | Fax: | | | | | | comorbidity | [phone] | | | | | | with [...] | | | | | | | [place] [facility] | | | | | | [...] + + + + | 11/07/ | Hospital | [facility] [facility] | Erika Ernst, | Morbid obesity | | 2020 | Encounter | HOSPITAL NUTRITION | DO [address] | ([facility]); Body mass | | | | SERVICES [address] | [place] [address] | index 50.0-59.9, | | | | DR [place], [place] | [phone] | adult ([facility]); | | | | [address] | | Essential | | | | [phone] | Janel Webster, | hypertension, | | | | | RD | malignant; Dietary | | | | | | [...] 1-2 | 60 vial | 0 | 10/11/19 | | | mL nebulizer | treatments in | | | 20 | 0 | | solution | nebulizer every 20 [...] | busPIRone (BUSPAR) | Take 10 mg 5 times a | 150 | 0 | 10/24/19 | | | 10 MG tablet | day | tablet | | 20 | 0 | + + + +---------+ [...] levothyroxine | Take 50 mcg daily | 30 | 11 | 06/18/20 | | | (SYNTHROID) 50 mcg | | tablet | | 19 | 0 | | tablet | | | | | | + + + +---------+ + + | meclizine | take 1 tablet by | 60 | 0 | 10/21/19 | | | (ANTIVERT) 12.5 mg | mouth every 6 hours | tablet | | 20 | 0 | | tablet | if needed for | | | | | | | dizziness | | | | | + + + +---------+ + + | prazosin | Take BID | 60 | 11 | 09/20/20 | | | (MINIPRESS) 1 mg | | capsule | | 19 | 0 | | capsule | | | | | | + + + +---------+ + + | QVAR REDIHALER 80 | Take 2 puffs by | | 0 | 10/14/19 | | | MCG/ACT inhaler | mouth 2 times daily. | | | 20 | 0 | + + + +---------+ + + | traMADol (ULTRAM) | Take 50 mg by mouth | | 0 | | | | 50 mg tablet | every 6 hours as | | | | 0 | | | needed. | | | | | + + + +---------+ + + documented as of this encounter Progress Notes Janel Webster, RD - 11/07/2019 3:00 PM PSTAssessment: Dx: Obesity Pt reports high anxiety and stress due to recent family loss and stress with overall health . Reports overthinking and worries she's a burden to others so tries to keep things more to herself per pt. States she has decreased appetite/PO intake. Some days goes all day without eating and drinking water per pt. She says she knows she needs to eat and drink but finding it hard to. She is worried she is going to lose weight too quickly and lose muscle mass. Rep orts that she will be seeing her counselor this evening. Food recall: D: chicken tofu, carrots Drinks: [employer] energy. Sleep: not sleeping due to stress/anxiety Nutrition related medications: vit D 1.25mg 1/week/4 months, ferrous sulfate 15mg/ml 3ml TI D Height: 5'10 Current wt:362# Last RD visit wt: 375# BMI:52.1 Labs: vit D 29 Nutrition Diagnosis:Inadequate intake r/t poor appetite with increased anxiety and stress A EB pt report and PO intake <50% of what she normally eats x 1 month. Intervention: Wt loss 13# since last visit. Wt loss 4% x 2 months, not significant enough to put her at m alnutrition risk. Pt's iron seems to be improving with the liquid form. Low vit D noted. We discussed small frequent meals and oral nutrition supplements with high protein intake to he lp reduce chance of muscle loss with weight loss. Rec pt open up to family and friends to he lp with encouragement/reminder to eat and drink right now since she is struggling. Rec pt ke eping pressing into positive stress relievers she can do every day. Goals: 1.) Set reminder on phone for meals/drinks 2.) Keep water container with you at all times 3.) Open up to friends and family about nutrition goals and need Pt receptive to education. Pt will keep a food diary for next visit. Monitor/Evaluation: Will monitor wt trends, nutrition related labs and food diary. Scheduled for a revisit in 6 to 8 weeks. Time spent with pt: 35 mins Electronically Signed by: Janel Webster RD 11/07/2019 3:34 PM documented in this encounter Plan of Treatment +--------+ + + + + | Date | Type | Specialty | Care Team | Description | +--------+ + + + + | 02/18/ | Appointment | Rehabilitation | Erika Ernst, | | | 2019 | | | DO [address] | | | | | | [place] [address] | | | | | | [phone] | | | | | | | | | | | | Julia Fisher, | | | | | | PT | | +--------+ + + + + | 02/18/ | Appointment | Rehabilitation | Erika Ernst, | | 2019 | | | DO [address] | | | | | | [place] [address] | | | | | | [phone] | | | | | | | | | | | | Genesis Ayon, SUSAN | | +--------+ + + + + | 02/25/ | Office | Primary Care | Erika Ernst, | | | 2019 | Visit | | DO [address] [place] [address] | | | | | | [place] [address] | | | | | | [phone] | | | | | | | [...] | | | | | [place] [address] | | | | | | [phone] | | | | | | | | +--------+ + + + + | 02/27/ | Appointment | Radiology | Dhara, | | 2019 | | | DWAINE Ross [address] [place], | | | | | | [place] [address] | | | | | | [phone] | | | | | | | | +--------+ + + + + | 03/04/ | Appointment | Rehabilitation | Genesis Ayon OT | | | 2019 | | | | | +--------+ + + + + | 03/09/ | Office | Orthopedic Surgery | Jeffrey Gandhi, | | | 2019 | Visit | | [address] | | | | | | [place] [address] | | | | | | [phone] | | | | | | | [...] [place] | | | | | | [address] | | | | | | [phone] | | | | | | | [...] | | | | | [place] [address] | | | | | | [phone] | | | | | | | | | | | | Azul Yeboah, | | | | | | MD [address] | | | | | | [place] | | | | | | [place] [address] | | | | | | [phone] | | | | | | | [...] | | | | | | [place] [address] | | | | | | [phone] | | | | | | | | +--------+ + + + + documented as of this encounter Visit Diagnoses + + | Diagnosis | + + | Morbid obesity (HCC) Morbid obesity | + + | Body mass index 50.0-59.9, adult (HCC) Body Mass Index 50.0-59.9, adult | + + | Essential hypertension, malignant | + + | Dietary counseling and surveillance Dietary surveillance and counseling | + + documented in this encounter"
--- OUTSIDE RECORDS SUMMARY | ~2020-02-18 | XMS | Encounter Summary ---
Demographics + + + | Address | [address] | | | [place] [address] | + + + | Home Phone | | + + + | Preferred Language | Unknown | + + + | Marital Status | Single | + + + | Alevism Affiliation | Unknown | + + + | Race | Unknown | + + + | Ethnic Group | Unknown | + + + Author + + + | Author | [facility] | | | and [place] | + + + | Organization | [facility] | | [...] Team Providers + +------+ + | Care Repairer Art Objects Name | Role | Phone | + +------+ + | Erika Ernst DO | PCP | | + +------+ + Reason for Visit + + + | Reason | Comments | + + + | Patient Concerns | | + + + Encounter Details +--------+ + + + + | Date | Type | Department | Care Team | Description | +--------+ + + + + | 05/23/ | Telephone | [facility] [facility] | Erika Ernst, | Patient Concerns | | 2019 | | [facility] | DO [address] | | | | | [facility] [address] | [place] [address] | | | | [address] [place], | [phone] | | | | | [place] [address] | | | | | | [phone] | | | +--------+ + + + [...] | | | | | [place] [address] | | | | | | [phone] | | | | | | | | | | | | Julia Fisher, | | | | | | PT | | +--------+ + + + + | 02/18/ | Appointment | Rehabilitation | Erika Ernst, | | | 2019 | | | DO [address] [place] | | | | | | [place] [address] | | | | | | [phone] | | | | | | | | | | | | Genesis Ayon OT | | +--------+ + + + + | 02/25/ | Office | Primary Care | Erika Ernst, | | | 2019 | Visit | | DO [address] | | | | | | [place] [address] | | | | | | [phone] | | | | | | | [...] | | | | | | [place] [address] | | | | | | [phone] | | | | | | | | +--------+ + + + + | 02/27/ | Appointment | Radiology | Dhara, | | | 2019 | | | [address] | | | | | | [address]TH [facility], | | | | | | [place] [address] | | | | | | [phone] | | | | | | | [...] [place] | | | | | | [place] [address] | | | | | | [phone] | | | | | | | [...] [place] | | | | | | [address] | | | | | | [phone] | | | | | | | [...] | | | | | [place] [address] | | | | | | [phone] | | | | | | | | | | | | Azul Yeboah, | | | | | | MD [address] | | | | | | [place] | | | | | | [place] [address] | | | | | | [phone] | | | | | | | [...] | | | | | | [place] [address] | | | | | | [phone] | | | | | | | | +--------+ + + + + documented as of this encounter Visit Diagnoses Not on filedocumented in this encounter"
--- OUTSIDE RECORDS SUMMARY | ~2020-02-18 | XMS | Encounter Summary ---
Demographics + + + | Address | [address] | | | [place] [address] | + + + | Home Phone [...] + + + | Author | [facility] | | | and [place] | + + + | Organization | [facility] | | [...] Team Providers + +------+ + | Care Carpenter General Name | Role | Phone | + +------+ + | Erika Ernst DO | PCP | | + +------+ + Reason for Visit +--------+ + | Reason | Comments | +--------+ + | Other | prior auth to saif | +--------+ + Encounter Details +--------+ + + + + | Date | Type | Department | Care Team | Description | +--------+ + + + + | 12/28/ | Telephone | [facility] [facility] | Emily Mittal DPM | Other (prior auth to | | 2018 | | [facility] | [address] [place] | sarain) | | | | [address] [place] [address] | [place] | | | | | [place] | [address] | | | | | [address] | | | | | | [phone] | | | +--------+ + + + [...] | | | | | [place] [address] | | | | | | [phone] | | | | | | | | | | | | Julia Fisher, | | | | | | PT | | +--------+ + + + + | 02/18/ | Appointment | Rehabilitation | Erika Ernst, | | | 2019 | | | DO [address] | | | | | | [place] [address] | | | | | | [phone] | | | | | | | | | | | | Genesis Ayon OT | | +--------+ + + + + | 02/25/ | Office | Primary Care | Erika Ernst, | | | 2019 | Visit | | DO [address] | | | | | | [place] [address] | | | | | | [phone] | | | | | | | [...] | | | | | | [place] [address] | | | | | | [phone] | | | | | | | | +--------+ + + + + | 02/27/ | Appointment | Radiology | Dhara, | | | 2019 | | | [address] | | | | | | [address] [facility], | | | | | | [place] [address] | | | | | | [phone] | | | | | | | [...] [place] | | | | | | [place] [address] | | | | | | [phone] | | | | | | | [...] DR | | | | | | [place] | | | | | | [address] | | | | | | [phone] | | | | | | | [...] | | | | | [place] [address] | | | | | | [phone] | | | | | | | | | | | | Azul Yeboah, | | | | | | [address] | | | | | | [place] | | | | | | [place] [address] | | | | | | [phone] | | | | | | | [...] | | | | | | [place] [address] | | | | | | [phone] | | | | | | | | +--------+ + + + + documented as of this encounter Visit Diagnoses Not on filedocumented in this encounter"
--- OUTSIDE RECORDS SUMMARY | ~2020-02-18 | XMS | Encounter Summary ---
Demographics + + + | Address | [address] | | | [place] [address] | + + + | Home Phone | | + + + | Preferred Language | Unknown | + + + | Marital Status | Single | + + + | Hindu Affiliation | Unknown | + + + | Race | Unknown | + + + | Ethnic Group | Unknown | + + + Author + + + | Author | [facility] | | | and [place] | + + + | Organization | [facility] | | [...] Team Providers + +------+ + | Care Community Placement Worker Name | Role | Phone | [...] + + + + | 10/30/ | Telephone | [facility] [facility] | Erika Ernst, | Lab Results | | 2019 | | [facility] | DO [address] | | | | | [facility]ICAL [facility] [address] | [place] [address] | | | | | [address] [place], | [phone] | | | | | [place] [address] | | | | | | [phone] | | | +--------+ + + + [...] | | | | | [place] [address] | | | | | | [phone] | | | | | | | | | | | | Forma, Julia M, | | | | | | PT | | +--------+ + + + + | 02/18/ | Appointment | Rehabilitation | Erika Ernst, | | | 2019 | | | DO [address] [place] | | | | | | [place] [address] | | | | | | [phone] | | | | | | | | | | | | Genesis Ayon OT | | +--------+ + + + + | 02/25/ | Office | Primary Care | Erika Ernst, | | | 2019 | Visit | | DO [address] [place] | | | | | | [place] [address] | | | | | | [phone] | | | | | | | [...] | | | | | [place] [address] | | | | | | [phone] | | | | | | | | +--------+ + + + + | 02/27/ | Appointment | Radiology | Dhara, | | | 2019 | | | [address] | | | | | | [address] [facility], | | | | | | [place] [address] | | | | | | [phone] | | | | | | | [...] ST | | | | | | [place] [address] | | | | | | [phone] | | | | | | | [...] [place] | | | | | | [address] | | | | | | [phone] | | | | | | | [...] | | | | | [place] [address] | | | | | | [phone] | | | | | | | | | | | | Azul Yeboah, | | | | | | MD [address] | | | | | | [place] | | | | | | [place] [address] | | | | | | [phone] | | | | | | | | +--------+ + + + + | 04/08/ | Appointment | Nutrition | Janel Webster | | | 2019 | | | [place] | | +--------+ + + + + | 05/21/ | Office | Neurology | Dhara, | | | 2019 | Visit | | Cody, ELASTIC ATTACHER [address] [place], | | | | | | [place] [address] | | | | | | [phone] | | | | | | | | +--------+ + + + + documented as of this encounter Results Urinalysis with Microscopic with Culture if Indicated (12/25/2019 12:56 PM PDT) + + + + + + | Component | Value | Ref Range | Performed | Pathologist | | | | | At | Signature | + + + + + + | Color, | Yellow | Pale Yellow, | [place] | | | Urine | | Yellow | [facility] | | | | [facility] | | | | | | [facility] | | | | | | [facility] | | + + + + + + | Clarity | Clear | Clear | [place] | | | | | | [facility] | | [facility] | | | | [facility] | | | | | | [facility] | | + + + + + + | pH, Urine | 5.0 | 5.0 - 7.0 | [place] | | | | | | [facility] | | [facility] | | | | | [facility] | | | | | | [facility] | | + + + + + + | Specific | 1.020 | 1.003 - 1.030 | [place] | | | [place], | | | [facility] | | | U[facility] | | | [facility] | | | | | | [facility] | | | | | | [facility] | | | | | | [facility] | | + + + + + + | Protein, | 15 mg/dL (A) | Negative | [place] | | | Urine | | | [facility] | | | | | [facility] | | | | | [facility] | | | | | | [facility] | | + + + + + + | Blood, | 10 matt/uL (A) | Negative | [place] | | | Urine | | | [facility] | | | | | | [facility] | | | | | | [facility] | | | | | | [facility] | | + + + + + + | Glucose, | Normal | Normal | [place] | | | Urine | | | [facility] | | | | | [facility] | | | | | [facility] | | | | | | [facility] | | + + + + + + | Ketones, | 5 mg/dL (A) | Negative | [place] | | | Urine | | | [facility] | | | | | [facility] | | | | | | [facility] | | | | | | [facility] | | + + + + + + | Bilirubin, | Negative | Negative | [place] | | | Urine | | | [facility] | | | | | [facility] | | | | | [facility] | | | | | | [facility] | | + + + + + + | Nitrite, | Negative | Negative | [place] | | | Urine | | | [facility] | | | | | [facility] | | | | | | [facility] | | | | | | [facility] | | + + + + + + | Leukocyte | 25 joby/uL (A) | Negative | [place] | | | Esterase, | | | [facility] | | | [facility] | | [facility] | | | | | | [facility] | | | | | | [facility] | | | | | | [facility] | | + + + + + + | Urobilinoge | Normal | 0-1.0 mg/dL | [place] | | | n, Urine | | | [facility] | | | | | [facility] | | | | | [facility] | | | | | | [facility] | | + + + + + + | White Blood | 3-5 | <=5 /HPF | [place] | | | Cells, | | | [facility] | | | [facility] | | | [facility] | | | | | | [facility] | | | | | | [facility] | | | | | | [facility] | | + + + + + + | Red Blood | 0-2 | <=5 /HPF | [place] | | | Cells, | | | [facility] | | | U[facility] | | | [facility] | | | | | | [facility] | | | | | | [facility] | | | | | | [facility] | | + + + + + + | Squamous | Moderate (A) | None Seen /LPF | [place] | | | Epithelial | | | [facility] | | | Cells, | | | [facility] | | | Urine | | | [facility] | | | | | | [facility] | | | | | | [facility] | | + + + + + + | Bacteria, | Moderate (A) | None Seen /HPF | [place] | | | Urine | | | [facility] | | | | | | [facility] | | | | | | [facility] | | | | | | [facility] | | + + + + + + | Mucus, | Few (A) | None seen /LPF | [place] | | | Urine | | | [facility] | | | | | | [facility] | | | | | | [facility] | | | | | | [facility] | | + + + + + + | Urine | Urine Culture Not | | [place] | | | Comment | Indicated | | [facility] | | | | | | [facility] | | | | | | [facility] | | | | | | [facility] | | + + + + + + + + | Specimen | + + | Urine | + + + + + + + | Performing | Address | City/State/Zipcode | Phone Number | | Organization | | | | + + + + + | [facility] [facility] | [address] | [place] | [phone] | | [facility] | | [address] | | | [facility] | | | | + + + + + documented in this encounter Visit Diagnoses + + | Diagnosis | + + | Dysuria - Primary | + + documented in this encounter"
--- OUTSIDE RECORDS SUMMARY | ~2020-02-18 | XMS | Encounter Summary ---
Demographics + + + | Address | [address] | | | [place] [address] | + + + | Home Phone | | + + + | Preferred Language | Unknown | + + + | Marital Status | Single | + + + | Cheondoism Affiliation | Unknown | + + + [...] Team Providers + +------+ + | Care Money Laundering Investigator Name | Role | Phone | + +------+ + | Erika Ernst DO | PCP | | + +------+ + Reason for Visit + + + | Reason | Comments | + + + | Injury | cut thumb | + + + | Referral | ankle | + + + | Hypertension | Follow up | + + + Encounter Details +--------+---------+ + + + | Date | Type | Department | Care Team | Description | +--------+---------+ + + + | 09/27/ | Office | [facility] [facility] | Erika Ernst, | Cough (Primary Dx); | | 2018 | Visit | [facility] | [address] | Essential | | | | [facility] [address] | [place] [address] | hypertension; Iron | | | | [address] [place], | [phone] | deficiency; Acute | | | | [place] [address] | | cystitis with | | | | [phone] | | hematuria | +--------+---------+ + + + Social History [...] + + + | Blood Pressure | 132/84 | 09/27/2019 1:23 PM | | | | | PST | | + + + + + | Pulse | 109 | 09/27/2019 1:23 PM | | | | | PST | | + + + + + | Temperature | - | - | | + + + + + | Respiratory Rate | 18 | 09/27/2019 1:23 PM | | | | | PST | | + + + + + | Oxygen Saturation | 100% | 09/27/2019 1:23 PM | | | | | PST | | + + + + + | Inhaled Oxygen | - | - | | | Concentration | | | | + + + + + | Weight | 169.6 kg (374 lb) | 09/27/2019 1:23 PM | | | | | PST | | + + + + + | Height | 177.8 cm (5' 10") | 09/27/2019 1:23 PM | | | | | PST | | + + + + + | Body Mass Index | 53.66 | 09/27/2019 1:23 PM | | | | | PST | | + + + + + documented in this encounter Progress Erika Cespedes DO - 09/27/2019 1:20 PM PSTFormatting of this note might be different fro dominick the original. Subjective: Patient ID: Andrea Suh is a 29 y.o. female. Here because she was exposed to the influenza and has some cough and wanted to get tested. States low grade fever this AM 99. No SOB or chest pain. Did get flu shot. HTN well controll ed now with the prazosin and she is tolerating it well. She is tolerating the liquid iron al so for her deficiency. Has UTI currently and still on antibiotic and when done we will reche ck UA since had some hematuria with the infection to assure cleared this. Non-smoker. Review ed the MRI of the right ankle and foot that had prior surgery with still some swelling and t he MRI has no acute findings, all tendons and ligaments intact. Review of Systems As above Objective: BP 132/84 | Pulse 109 | Resp 18 | Ht 1.778 m (5' 10") | Wt (!) 169.6 kg (374 lb) | SpO 2 100% | BMI 53.66 kg/m Physical Exam Constitutional: General: She is not in acute distress. Appearance: Normal appearance. HENT: Head: Normocephalic and atraumatic. Right Ear: Tympanic membrane and ear canal normal. Left Ear: Tympanic membrane and ear canal normal. Mouth/Throat: Mouth: Mucous membranes are moist. Pharynx: Oropharynx is clear. No posterior oropharyngeal erythema. Eyes: Extraocular Movements: Extraocular movements intact. Pupils: Pupils are equal, round, and reactive to light. Cardiovascular: Rate and Rhythm: Normal rate and regular rhythm. Pulmonary: Effort: Pulmonary effort is normal. No respiratory distress. Breath sounds: Normal breath sounds. Skin: General: Skin is warm and dry. Capillary Refill: Capillary refill takes less than 2 seconds. Findings: No rash. Comments: sm cut on left thumb clean and dry and UTD on Td Neurological: General: No focal deficit present. Mental Status: She is alert and oriented to person, place, and time. Gait: Gait normal. Psychiatric: Mood and Affect: Mood normal. Behavior: Behavior normal. Thought Content: Thought content normal. Judgment: Judgment normal. Assessment: 1. Cough Influenza A and B Ag, [place] CANCELED: Influenza A and B Ag, [place] 2. Essential hypertension 3. Iron deficiency 4. Acute cystitis with hematuria Urinalysis with Microscopic with Culture if Indicated Plan: Swab for influenza and if positive will order antiviral med. Continue prazosin for HTN cont rol. Continue liquid iron. Recheck on UA when 3 days after antibiotic to see that clear sinc e had some hematuria. Reviewed right foot MRI no acute findings documented in this en counter Plan of Treatment +--------+ + + + + | Date | Type | Specialty | Care Team | Description | +--------+ + + + + | 02/18/ | Appointment | Rehabilitation | Erika Ernst, | | | 2019 | | | DO [address] | | | | | | [place] [address] | | | | | | [phone] | | | | | | | | | | | | Julia Fisher, | | | | | | PT | | +--------+ + + + + | 02/18/ | Appointment | Rehabilitation | Erika Ernst, | | | 2019 | | | DO [address] | | | | | | [place] [address] | | | | | | [phone] | | | | | | | | | | | | Genesis Ayon OT | | +--------+ + + + + | 02/25/ | Office | Primary Care | Erika Ernst, | | | 2019 | Visit | | DO [address] | | | | | | [place] [address] | | | | | | [phone] | | | | | | | [...] [place] | | | | | | [place] [address] | | | | | | [phone] | | | | | | | | +--------+ + + + + | 02/27/ | Appointment | Radiology | Dhara, | | | 2019 | | | DWAINE Ross [address] | [address] [place], | | | | | | [place] [address] | | | | | | [phone] | | | | | | | | +--------+ + + + + | 03/04/ | Appointment | Rehabilitation | Genesis Ayon OT | | | 2019 | | | | | +--------+ + + + + | 03/09/ | Office | Orthopedic Surgery | Jeffrey Gandhi, | | | 2019 | Visit | | [address] [facility] | | | | | | [place] [address] | | | | | | [phone] | | | | | | | [...] [place] | | | | | | [address] | | | | | | [phone] | | | | | | | [...] | | | | | [place] [address] | | | | | | [phone] | | | | | | | | | | | | Azul Yeboah, | | | | | | [address] | | | | | | [place] | | | | | | [place] [address] | | | | | | [phone] | | | | | | | [...] | | | | | | [place] [address] | | | | | | [phone] | | | | | | | | +--------+ + + + + documented as of this encounter Results Urinalysis with Microscopic with Culture if Indicated (10/25/2019 2:52 PM PST) + + + + + [...] + + + + | Clarity | Slightly Cloudy (A) | Clear | [place] | | | | | | [facility] | [facility] | | [facility] | | | | | [facility] | | + + + + + + | pH, Urine | 6.5 | 5.0 - 7.0 | [place] | | | | | | [facility] | [facility] | | | | [facility] | | | | | | [facility] | | + + + + + + | Specific | 1.010 | 1.003 - 1.030 | [place] | | | [place], | | | [facility] | | | U[facility] | | | [facility] | | | | | | [facility] | | | | | | [facility] | | | | | | [facility] | | + + + + + + | Protein, | Negative | Negative | [place] | [...] + + + + | Ketones, | Negative | Negative | [place] | [...] + + + + | Leukocyte | 100 joby/uL (A) | Negative | [place] | [...] + + + | White Blood | 6-10 (A) | <=5 /HPF | [place] | | [...] + + + + | Squamous | Many (A) | None Seen /LPF | [place] [...] | | Comment | Indicated | | [facility] | [facility] | [facility] | | | | | | [facility] | | + + + + + + + + | Specimen | + + | Urine - Urine | | specimen obtained by | | clean catch | | procedure (specimen) | + + + + + + + | Performing | Address | City/State/Zipcode | Phone Number | | Organization | | | | + + + + + | [facility] [facility] | [address] | [place] | [phone] | | [facility] | | [address] | | | [facility] | | | | + + + + + Influenza A and B Ag, [place] (09/27/2019 1:55 PM PST) + + + + + + | Component | Value | Ref Range | Performed | Pathologist | | | | | At | Signature | + + + + + + | Influenza A | Negative | Negative | [place] | | | Ag, EIA | | | [facility] | | | | | | [facility] | | | | | | [facility] | | | | | | [facility] | | + + + + + + | Influenza B | Negative | Negative | [place] | | | Ag, EIA | | | [facility] | | | | | | [facility] | | | | | | [facility] | | | | | | [facility] | | + + + + + + + + | Specimen | + + | Tissue - Entire | | nasopharynx (body | | structure) | + + + + + | Narrative | Performed At | + + + | A negative test result may occur if the level of antigen in the | [facility] | | sample is below the detection limit of the test and should be | HOSPITAL | | confirmed by culture. | [facility] | | | [facility] | | | LAB | + + + + + + + + | Performing | Address | City/State/Zipcode | Phone Number | | Organization | | | | + + + + + | [facility] [facility] | [address] | [place] | [phone] | | [facility] | | [address] | | | [facility] | | | | + + + + + documented in this encounter Visit Diagnoses + + | Diagnosis | + + | Cough - Primary | + + | Essential hypertension Unspecified essential hypertension | + + | Iron deficiency Other disorders of iron metabolism | + + | Acute cystitis with hematuria Acute cystitis | + + documented in this encounter
--- OUTSIDE RECORDS SUMMARY | ~2020-02-18 | XMS | Encounter Summary ---
Demographics + + + | Address | [address] | | | [place] [address] | + + + | Home Phone [...] + + + | Author | [facility] | | | and [place] | + + + | Organization | [facility] | | [...] Team Providers + +------+ + | Care Mini Shifter Name | Role | Phone | + [...] | | | to excess | [place] [address] | | | | | | calories | Phone: | | | | | | without | [phone] | | | | | | serious | Fax: | | | | | | comorbidity | [phone] | | | | | | with [...] | | | | | | | [facility] | | | | | | [...] | +--------+ + + + + | 06/06/ | Hospital | [facility] [facility] | Erika Ernst, | Essential | | 2019 | Encounter | HOSPITAL NUTRITION | DO [address] | hypertension, | | | | SERVICES [address] | [place] [address] | malignant; Morbid | | | | DR [place], [place] | [phone] | obesity (HCC); Body | | | | [address] | | mass index | | | | [phone] | Janel Webster, | 50.0-59.9, adult | [...] | UNABLE TO FIND | Med Name: regill | | 0 | | | + [...] | 04/12/20 | | | (VITAMIN D3) 03350 | mouth Once a week | tablet [...] encounter Progress Notes Janel Webster RD - 06/06/2019 3:35 PM PDTAssessment: Dx: iron deficiency, obesity Pt wanted to talk about her recent low iron lab and what steps she can take nutritionally t o improve this. No food diary but did show that she found a food log she can keep on her fri dge to help increase awareness of what she's eating. States she is taking the iron supplemen ts with orange juice. Pt did not want to talk about any thing else nutritionally. Height:5'10 Current wt:380# Last RD visit wt: 381# BMI:48 Labs:iron 16 uq/dL Nutrition related medications: ferrous sulfate 325mg BID, vit D3, mg cl, Nutrition Diagnosis:No dx at this time Intervention: Wt stable from last visit. Provided iron handouts. Cont taking orange juice(vit C) with iro n suppelement. Rec limiting foods during time of taking iron supplement that can decrease a bsorption such as oxalates (spinach,) polyphenols (tea, coffee) and calcium sources. Provid ed a list of iron sources. Discussed non heme and heme iron food sources and that heme iron is more readily absorbed in the body. Pt is limited due to being vegetarian. Pt will keep a food diary for next visit. Monitor/Evaluation: Will monitor wt trends, nutrition related labs and food diary. Scheduled for a revisit in 6 to 8 weeks. Time spent with pt: 20 mins Electronically Signed by: Janel Webster RD 06/06/2019 15:36 documented in this encounter Plan of Treatment +--------+ + + + + | Date | Type | Specialty | Care Team | Description | +--------+ + + + + | 02/18/ | Appointment | Rehabilitation | Erika Ernst, | | | 2019 | | | DO [address] | | | | | | [place] [address] | | | | | | [phone] | | | | | | | | | | | | Julia Fisher, | | | | | | PT | | +--------+ + + + + | 02/18/ | Appointment | Rehabilitation | Erika Ernst, | | | 2019 | | | DO [address] | | | | | | [place] [address] | | | | | | [phone] | | | | | | | | | | | | Genesis Ayon OT | | +--------+ + + + + | 02/25/ | Office | Primary Care | Erika Ernst, | | | 2019 | Visit | | DO [address] [place] [address] | | | | | | [place] [address] | | | | | | [phone] | | | | | | | [...] | | | | | [place] [address] | | | | | | [phone] | | | | | | | | +--------+ + + + + | 02/27/ | Appointment | Radiology | Dhara, | | | 2019 | | | DWAINE Ross [address] [place], | | | | | | [place] [address] | | | | | | [phone] | | | | | | | | +--------+ + + + + | 03/04/ | Appointment | Rehabilitation | Genesis Ayon OT | | | 2019 | | | | | +--------+ + + + + | 03/09/ | Office | Orthopedic Surgery | Jeffrey Gandhi, | | | 2019 | Visit | | [address] | | | | | | [place] [address] | | | | | | [phone] | | | | | | | [...] [place] | | | | | | [address] | | | | | | [phone] | | | | | | | [...] | | | | | [place] [address] | | | | | | [phone] | | | | | | | | | | | | Azul Yeboah, | | | | | | [address] | | | | | | [place] | | | | | | [place] [address] | | | | | | [phone] | | | | | | | [...] | | | | | | [place] [address] | | | | | | [phone] | | | | | | | [...]
--- OUTSIDE RECORDS SUMMARY | ~2020-02-18 | XMS | Encounter Summary ---
Demographics + + + | Address | [address] | | | [place] [address] | + + + | Home Phone | | + + + | Preferred Language | Unknown | + + + | Marital Status | Single | + + + | Samaritan Affiliation | Unknown | + + + [...] Team Providers + +------+ + | Care Partnership Development Manager Name | Role | Phone | + +------+ + | Erika Ernst DO | PCP | | + +------+ + Reason for Visit +--------+ + | Reason | Comments | +--------+ + | LABS | Ok to call pt on 09-10-19 - Pt needs to know when she's due for | | | lab draw | +--------+ + Encounter Details +--------+ + + + + | Date | Type | Department | Care Team | Description | +--------+ + + + + | 09/09/ | Telephone | [facility] | Erika Ernst, | LABS (Ok to call pt | | 2019 | | [facility] | [address] | on 09-10-19 - Pt | | | | [facility] [address] | [place] [address] | needs to know when | | | | [address] [place], | [phone] | she's due for lab | | | | [place] [address] | | draw) | | | | [phone] | | | +--------+ + + + [...] | | | | | [place] [address] | | | | | | [phone] | | | | | | | | | | | | Julia Fisher, | | | | | | PT | | +--------+ + + + + | 02/18/ | Appointment | Rehabilitation | Erika Ernst, | | | 2019 | | | DO [address] | | | | | | [place] [address] | | | | | | [phone] | | | | | | | | | | | | [facility] | | +--------+ + + + + | 02/25/ | Office | Primary Care | Erika Ernst, | | | 2019 | Visit | | DO [address] | | | | | | [place] [address] | | | | | | [phone] | | | | | | | | +--------+ + + + + | 02/25/ | Appointment | Rehabilitation | Genesis Ayon OT | | | 2019 | | | | | +--------+ + + + + | 02/26/ | Virtual | Rehabilitation | Usha Rdoriguez | | | 2019 | Office | | MD Precious [address] | | | | Visit | | [address] [place] | | | | | | [place] [address] | | | | | | [phone] | | | | | | | | +--------+ + + + + | 02/27/ | Appointment | Radiology | Dhara, | | | 2019 | | | DWAINE Ross [address] [place], | | | | | | [place] [address] | | | | | | [phone] | | | | | | | | +--------+ + + + + | 03/04/ | Appointment | Rehabilitation | Genesis Ayon OT | | 2019 | | | | | +--------+ + + + + | 03/09/ | Office | Orthopedic Surgery | Jeffrey Gandhi, | | 2019 | Visit | | [place] [address] | | | | | | [place] [address] | | | | | | [phone] | | | | | | | [...] [place] | | | | | | [address] | | | | | | [phone] | | | | | | | [...] | | | | | [place] [address] | | | | | | [phone] | | | | | | | | | | | | Azul Yeboah, | | | | | | MD [address] | | | | | | [place] | | | | | | [place] [address] | | | | | | [phone] | | | | | | | [...] | | | | | | [place] [address] | | | | | | [phone] | | | | | | | | +--------+ + + + + documented as of this encounter Visit Diagnoses Not on filedocumented in this encounter"
--- OUTSIDE RECORDS SUMMARY | ~2020-02-18 | XMS | Encounter Summary ---
Demographics + + + | Address | [address] | | | [place] [address] | + + + | Home Phone | | + + + | Preferred Language | Unknown | + + + | Marital Status | Single | + + + | Samaritan Affiliation | Unknown | + + + | Race | Unknown | + + + | Ethnic Group | Unknown | + + + Author + + + | Author | [facility] | | | and [place] | + + + | Organization | [facility] | | | and [...] Team Providers + +------+ + | Care Document Manager Name | Role | Phone | [...] | Orthopedic | Diagnoses | Klever, | Oksana, | | | Services | Surgery | Carpjonathan | Erika Salter DO | Jeffrey Kent MD | | | Required | | tunnel | [address] | [address] | | | | | syndrome on | [place], | [place], | | | | | right | [place] [address] | [place] [address] | | | | | | Phone: | Phone: | | | | | | [phone] | [phone] | | | | | | Fax: | Fax: | | | | | | [phone] | [phone] | + + + + + + + Evaluate & Treat (Routine) + + + + + + + | Status | Reason | Specialty | Diagnoses / | Referred By | Referred To | | | | | Procedures | Contact | Contact | + + + + + + + | Authorizatio | Specialty | Rehabilitatio | Diagnoses | Klever, | Cc Wgr | | n not | Services | n | Carpal | Erika A, DO | Therapy Ot | | Required | Required | | tunnel | [address] | [address] | | | | | syndrome on | [place], | [place], | | | | | right | [place] [address] | [place] [address] | | | | | Procedures | Phone: | Phone: | | | | | OT EVAL AND | [phone] | [phone] | | | | | TREAT | Fax: | Fax: | | | | | | [phone] | [phone] | + + + + + + + Consultation (Routine) + + + + + + + | Status | Reason | Specialty | Diagnoses / | Referred By | Referred To | | | | | Procedures | Contact | Contact | + + + + + + + | Authorized | Specialty | Neurology | Diagnoses | Klever, | Obinna, | | | Services | | ALVAREZ | Erika Salter DO | Azul Kidd, | | | Required | | (obstructive | [address] | MD [address] | | | | | sleep | [place], | [address], | | | | | apnea) | [place] [address] | [place] | | | | | | Phone: | [place], [place] | | | | | | [phone] | [address] Phone: | | | | | | Fax: | [phone] | | | | | | [phone] | Fax: | | | | | | | [phone] | + + + + + + + Reason for Visit + + + | Reason | Comments | + + + | Referral (Follow up) | referral | + + + Encounter Details +--------+---------+ + + + | Date | Type | Department | Care Team | Description | +--------+---------+ + + + | 01/30/ | Office | [facility] | Erika Ernst, | Asthma due to | | 2020 | Visit | [facility] | DO [address] [place] | environmental | | | | [facility] | [place] [address] | allergies (Primary | | | | [address] [place], | [phone] | Dx); Carpal tunnel | | | | [place] [address] | | syndrome on right; | | | | [phone] | | ALVAREZ (obstructive | | | | | | sleep apnea); Class | | | | | | 3 severe obesity due | | | | | | to excess calories | | | | | | without serious | | | | | | comorbidity with | | | | | | body mass index | | | | | | (BMI) of 45.0 to | | | | | | 49.9 in adult (HCC) | +--------+---------+ + + + Social History [...] + + + | Blood Pressure | 138/80 | 01/31/2020 3:58 PM | | | | | PDT | | + + + + + | Pulse | 74 | 01/31/2020 3:58 PM | | | | | PDT | | + + + + + | Temperature | 36.8 C (98.3 F) | 01/31/2020 3:58 PM | | | | | PDT | | + + + + + | Respiratory Rate | 18 | 01/31/2020 3:58 PM | | | | | PDT | | + + + + + | Oxygen Saturation | 98% | 01/31/2020 3:58 PM | | | | | PDT | | + + + + + | Inhaled Oxygen | - | - | | | Concentration | | | | + + + + + | Weight | 154.2 kg (340 lb) | 01/31/2020 3:58 PM | | | | | PDT | | + + + + + | Height | 177.8 cm (5' 10") | 01/31/2020 3:58 PM | | | | | PDT | | + + + + + | Body Mass Index | 48.78 | 01/31/2020 3:58 PM | | | | | PDT | | + + + + + documented in this encounter Progress Erika Cespedes DO - 01/31/2020 3:40 PM PDTFormatting of this note might be different fro m the original. Subjective: Patient ID: Andrea Suh is a 29 y.o. female. Here to get referral for right carpal tunnel syndrome, not work comp. She had EMG last Nove mber by DR Nichole and shows mild to mod carpal tunnel both wrists. She states the left has reso lved but right is worse and has pain and tingling in first three fingers and radiates up the dorsal wrist and is getting weaker in the right hand. She is right handed. She has splints but not wearing them. Encouraged her to wear the splints at night. Referral to PT and Dr Brenden Blackwood at [facility]. 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 She has asthma and allergies and has had recurrent bouts of bronchitis this Winter . Today she is afebrile, pox 98 % and lungs clear on exam. She was tested for covid and is n eg. Non-smoker. She was tested for ALVAREZ but could not tolerate the CPAP but now wishes to see Dr Yeboah again for this. States she has been gasping more at night and will consider Tx no w. She states she has gained 60 # this Winter and is working with dietitian which is good b ut on review of chart weight flow sheets she has actually lost 40 # since last Fall. Diet an d exercise encouraged. Suspect this patient to be borderline personality disorder and defini tely somatic disorder which I have discussed with her. She is very enthusiastic about all he r stress and illness. Again ask her to get records from her current mental health providers. She agrees to do so but has been ask multiple times before. Non-smoker. Review of Systems As above Objective: BP 138/80 | Pulse 74 | Temp 36.8 C (98.3 F) (Oral) | Resp 18 | Ht 1.778 m (5' 10") | Wt (!) 154.2 kg (340 lb) | SpO2 98% | BMI 48.78 kg/m Physical Exam Constitutional: General: She is not in acute distress. Appearance: Normal appearance. HENT: Head: Normocephalic and atraumatic. Eyes: Extraocular Movements: Extraocular movements intact. Cardiovascular: Rate and Rhythm: Normal rate and regular rhythm. Heart sounds: No murmur. Comments: + radial pulse right wrist Pulmonary: Effort: Pulmonary effort is normal. No respiratory distress. Breath sounds: Normal breath sounds. Skin: General: Skin is warm and dry. Capillary Refill: Capillary refill takes less than 2 seconds. Neurological: Mental Status: She is alert and oriented to person, place, and time. Cranial Nerves: No cranial nerve deficit. Gait: Gait normal. Comments: Positive Phalen's, negative Tinnel's. For carpal tunnel right wrist Psychiatric: Comments: Poor eye contact today. Very enthusiastic about her illness. Assessment: 1. Asthma due to environmental allergies CBC with Differential 2. Carpal tunnel syndrome on right * [place] [facility] - AMB Referral Orthopedic Surgery, External - AMB Referral 3. ALVAREZ (obstructive sleep apnea) AMB Referral to [facility] Neu[facility] Plan: CBC today. Lungs clear. Continue current inhalers. Referral to PT for the carpal tunnel and wear night splint and referral to Dr Jeffrey Jacobo Ortho surgeon Referral to Dr Georgina medina for ALVAREZ. documented in this en counter Plan of Treatment +--------+ + + + + | Date | Type | Specialty | Care Team | Description | +--------+ + + + + | 02/18/ | Appointment | Rehabilitation | Erika Ernst, | | 2019 | | | DO [address] | | | | | | [place] [address] | | | | | | [phone] | | | | | | | | | | | | Julia Fisher, | | | | | | PT | | +--------+ + + + + | 02/18/ | Appointment | Rehabilitation | Erika Ernst, | | | 2019 | | | DO [address] [place] | | | | | | [place] [address] | | | | | | [phone] | | | | | | | | | | | | Genesis Ayon OT | | +--------+ + + + + | 02/25/ | Office | Primary Care | Erika Ernst, | | | 2019 | Visit | | DO [address] [place] | | | | | | [place] [address] | | | | | | [phone] | | | | | | | | +--------+ + + + + | 02/25/ | Appointment | Rehabilitation | Genesis Ayon OT | | | 2019 | | | | | +--------+ + + + + | 02/26/ | Virtual | Rehabilitation | Usha Rodriguez | | 2019 | Office | | MD [address] | | | | Visit | | [place] | | | | | | [place] [address] | | | | | | [phone] | | | | | | | | +--------+ + + + + | 02/27/ | Appointment | Radiology | Dhara, | | | 2019 | | | DWAINE Ross [address] | | | | | [address] [place], | | | | | | [place] [address] | | | | | | [phone] | | | | | | | | +--------+ + + + + | 03/04/ | Appointment | Rehabilitation | Genesis Ayon OT | | | 2019 | | | | | +--------+ + + + + | 03/09/ | Office | Orthopedic Surgery | Jeffrey Gandhi, | | | 2019 | Visit | | [address] | | | | | | [place] [address] | | | | | | [phone] | | | | | | | [...] [place] | | | | | | [address] | | | | | | [phone] | | | | | | | [...] | | | | | [place] [address] | | | | | | [phone] | | | | | | | | | | | | Azul Yeboah, | | | | | | MD [address] | | | | | | [place] | | | | | | [place] [address] | | | | | | [phone] | | | | | | | [...] | | | | | | [place] [address] | | | | | | [phone] | | | | | | | | +--------+ + + + + + + +--------+ + + | Name | Type | Priori | Associated Diagnoses | Order Schedule | | | | ty | | | + + +--------+ + + | AMB Referral to CC | Outpatient | Routin | ALVAREZ (obstructive | Ordered: 01/31/2020 | | [facility] | Referral | e | sleep apnea) | | + + +--------+ + + | * [place] [facility] | Outpatient | Routin | Carpal tunnel | Ordered: 01/31/2020 | | [facility] | Referral | e | syndrome on right | | | - AMB Referral | | | | | + + +--------+ + + | Orthopedic Surgery, | Outpatient | Routin | Carpal tunnel | Ordered: 01/31/2020 | | External - AMB | Referral | e | syndrome on right | | | Referral | | | | | + + +--------+ + + documented as of this encounter Results CBC with Differential (01/31/2020 4:44 PM PDT) + +---------+ + + + | Component | Value | Ref Range | Performed | Pathologist | | | | | At | Signature | + +---------+ + + + | WBC | 7.5 | 4.3 - 10.4 K/uL | [place] | | | | | | [facility] | [facility] | | | | [facility] | | + +---------+ + + + | RBC | 4.46 | 4.12 - 5.30 | [place] | | | | | M/uL | [facility] | [facility] | | | | | [facility] | | + +---------+ + + + | Hemoglobin | 12.9 | 12.4 - 15.7 | [place] | | | | | g/dL | [facility] | [facility] | | [facility] | | | | | [facility] | | + +---------+ + + + | Hematocrit | 39.2 | 37.7 - 47.0 % | [place] | | | | | | [facility] | [facility] | [facility] | | | | [facility] | | + +---------+ + + + | MCV | 88.0 | 82.0 - 97.0 fL | [place] | | | | | | [facility] | [facility] | | | | | [facility] | | + +---------+ + + + | MCH | 28.9 | 27.1 - 32.3 pg | [place] | | | | | | [facility] | [facility] | | | [facility] | | + +---------+ + + + | MCHC | 32.9 | 32.0 - 36.9 | [place] | | | | | g/dL | [facility] | [facility] | [facility] | | + +---------+ + + + | RDW-CV | 14.3 | 0.0 - 17.0 % | [place] | | | | | | [facility] | [facility] | | + +---------+ + + + | Platelet | 319 | 150 - 450 K/uL | [place] | | | Count | | | [facility] | [facility] | | [facility] | | + +---------+ + + + | MPV | 8.5 (L) | 9.4 - 12.3 fL | [place] | | | | | | [facility] | [facility] | | | | [facility] | | + +---------+ + + + | % | 67.8 | 42.0 - 76.0 % | [place] | | | Neutrophils | | | [facility] | | [facility] | | | | | | [facility] | | + +---------+ + + + | % | 25.8 | 20.0 - 40.0 % | [place] | | | Lymphocytes | | | [facility] | | [facility] | | | | | | [facility] | | + +---------+ + + + | % Monocytes | 5.1 | 3.0 - 13.0 % | [place] | | | | | | [facility] | [facility] | | | [facility] | | | | | | [facility] | | + +---------+ + + + | % | 1.1 | 0.0 - 7.0 % | [place] | | | Eosinophils | | | [facility] | [facility] | | | | | [facility] | | | | | | [facility] | | + +---------+ + + + | % Basophils | 0.2 | 0.0 - 2.0 % | [place] | | | | | | [facility] | | [facility] | | | | | [facility] | | | | | | [facility] | | + +---------+ + + + | Absolute | 5.10 | 2.50 - 8.50 | [place] | | | Neutrophils | | K/uL | [facility] | [facility] | | | [facility] | | | | | | [facility] | | + +---------+ + + + | Absolute | 1.90 | 1.00 - 3.80 | [place] | | | Lymphocytes | | K/uL | [facility] | [facility] | | | | [facility] | | | | | | [facility] | | + +---------+ + + + | Absolute | 0.40 | 0.00 - 0.80 | [place] | | | Monocytes | | K/uL | [facility] | [facility] | | | | [facility] | | | | | | [facility] | | + +---------+ + + + | Absolute | 0.10 | 0.00 - 0.70 | [place] | | | Eosinophils | | K/uL | [facility] | | | [facility] | | | | | [facility] | | | | | | [facility] | | + +---------+ + + + | Absolute | 0.00 | 0.00 - 0.20 | [place] | | | Basophils | | K/uL | [facility] | | | [facility] | | | | | [facility] | | | | | | [facility] | | + +---------+ + + + + + | Specimen | + + | Blood | + + + + + + + | Performing | Address | City/State/Zipcode | Phone Number | | Organization | | | | + + + + + | [facility] | [address] | [place], [place] | [phone] | | [facility] | | [address] | | | [facility] | | | | + + + + + documented in this encounter Visit Diagnoses + + | Diagnosis | + + | Asthma due to environmental allergies - Primary | + + | Carpal tunnel syndrome on right Carpal tunnel syndrome | + + | ALVAREZ (obstructive sleep apnea) Obstructive sleep apnea (adult) (pediatric) | + + | Class 3 severe obesity due to excess calories without serious comorbidity with body | | mass index (BMI) of 45.0 to 49.9 in adult (HCC) | + + documented in this encounter
--- OUTSIDE RECORDS SUMMARY | ~2020-02-18 | XMS | Encounter Summary ---
Demographics + + + | Address | [address] | | | [place] [address] | + + + | Home Phone | | + + + | Preferred Language | Unknown | + + + | Marital Status | Single | + + + | Jewish Affiliation | Unknown | + + + [...] Team Providers + +------+ + | Care Assembler For Puller Over Machine Name | Role | Phone | + +------+ + | Erika Ernst DO | PCP | | + +------+ + Reason for Visit +--------+ + | Reason | Comments | +--------+ + | Other | ear popped an hour ago and now hurts | +--------+ + Encounter Details +--------+---------+ + + + | Date | Type | Department | Care Team | Description | +--------+---------+ + + + | 02/16/ | Office | [facility] [facility] | Erika Ernst, | Right acute otitis | | 2018 | Visit | [facility] | DO [address] | media (Primary Dx); | | | | [facility] | [place] [address] | Elevated blood | | | | [address] [place], | [phone] | pressure reading | | | | [place] [address] | | | | | | [phone] | | | +--------+---------+ + + + [...] + | Blood Pressure | 130/100 | 02/16/2018 3:16 PM | | | | | PDT | | + + + + + | Pulse | 70 | 02/16/2018 3:16 PM | | | | | PDT | | + + + + + | Temperature | - | - | | + + + + + | Respiratory Rate | 16 | 02/16/2018 3:16 PM | | | | | PDT | | + + + + + | Oxygen Saturation | 99% | 02/16/2018 3:16 PM | | | | | PDT | | + + + + + | Inhaled Oxygen | - | - | | | Concentration | | | | + + + + + | Weight | 174.8 kg (385 lb 6.4 | 02/16/2018 3:16 PM | | | | oz) | PDT | | + + + + + | Height | 177.8 cm (5' 10") | 02/16/2018 3:16 PM | | | | | PDT | | + + + + + | Body Mass Index | 55.3 | 02/16/2018 3:16 PM | | | | | PDT | | + + + + + documented in this encounter Progress Erika Cespedes DO - 02/16/2018 3:00 PM PDTFormatting of this note might be different fro m the original. Subjective: Patient ID: Andrea Suh is a 27 y.o. female. Here with complaints of right ear pain. States increased pain for a few days and today [place] s [place] she felt a pop and now even more pain. No drng. States has had head and nasal congestion. Is taking some benadryl for allergies. BP e levated and this is the first time she has had this. Review of Systems Constitutional: Negative. HENT: Positive for congestion and ear pain. Negative for rhinorrhea, sinus pain, sinus pres sure and tinnitus. Eyes: Negative. Respiratory: Negative. Cardiovascular: Negative. Skin: Negative. Social History Social History Marital status: [...] Tape Rash Outpatient Encounter Prescriptions as of 02/16/2018 Medication Sig Dispense Refill albuterol (PROAIR HFA) 90 mcg/puff inhaler Inhale into the lungs. amoxicillin-clavulanate (AUGMENTIN) 875-125 mg per tablet Take 1 tablet by mouth 2 time s daily for 10 days. 20 tablet 0 ferrous sulfate 325 mg tablet Take by mouth. fexofenadine (JOSÉ ANTONIO ALLERGY) 180 mg tablet Take by mouth. FLUoxetine (PROZAC) 40 MG capsule Take 40 mg by mouth Daily. fluticasone (FLONASE) 50 mcg/nasal spray by Nasal route. ipratropium (ATROVENT HFA) 17 mcg/puff inhaler Inhale into the lungs. levothyroxine (SYNTHROID) 75 MCG tablet Take by mouth. montelukast (SINGULAIR) 10 mg tablet Take by mouth. No facility-administered encounter medications on file as of 02/16/2018. Objective: BP (!) 130/100 | Pulse 70 | Resp 16 | Ht 1.778 m (5' 10") | Wt (!) 174.8 kg (385 lb 6.4 oz) | LMP 01/29/2018 | SpO2 99% | ? No | BMI 55.30 kg/m Physical Exam Constitutional: She is oriented to person, place, and time. She appears well-developed and well-nourished. No distress. HENT: Head: Normocephalic and atraumatic. Left TM clear. Right TM is red and bulging but no rupture of the TM. Eyes: Conjunctivae and EOM are normal. Right eye exhibits no discharge. Left eye exhibits n o discharge. Cardiovascular: Normal rate, regular rhythm and normal heart sounds. No murmur heard. Pulmonary/Chest: Effort normal and breath sounds normal. No respiratory distress. She has n o wheezes. Lymphadenopathy: She has no cervical adenopathy. Neurological: She is alert and oriented to person, place, and time. Skin: Skin is warm and dry. Psychiatric: She has a normal mood and affect. Her behavior is normal. Assessment: 1. Right acute otitis media 2. Elevated blood pressure reading Plan: Augmentin 875 mg BID X 10 days for the ear infection and she will make a FU appointment for recheck on this first time BP elevation and check on other routine chronic health issues. documented in this en counter Plan of Treatment +--------+ + + + + | Date | Type | Specialty | Care Team | Description | +--------+ + + + + | 02/18/ | Appointment | Rehabilitation | Eriak Ernst, | | | 2019 | | | DO [address] [place] | | | | | | [place], [place] [address] | | | | | | [phone] | | | | | | | | | | | | Julia Fisher, | | | | | | PT | | +--------+ + + + + | 02/18/ | Appointment | Rehabilitation | Erika Ernst, | | | 2019 | | | DO [address] [place] | | | | | | [place] [address] | | | | | | [phone] | | | | | | | | | | | | [facility] OT | | +--------+ + + + + | 02/25/ | Office | Primary Care | Erika Ernst, | | | 2019 | Visit | | DO [address] [place] | | | | | | [place] [address] | | | | | | [phone] | | | | | | | [...] | | | | | [place] [address] | | | | | | [phone] | | | | | | | | +--------+ + + + + | 02/27/ | Appointment | Radiology | Dhara, | | | 2019 | | | DWAINE Ross [address] | | [address] [place], | | | | | | [place] [address] | | | | | | [phone] | | | | | | | | +--------+ + + + + | 03/04/ | Appointment | Rehabilitation | Genesis Ayon OT | | | 2019 | | | | | +--------+ + + + + | 03/09/ | Office | Orthopedic Surgery | Jeffrey Gandhi, | | | 2019 | Visit | | [address] | | | | | | [place] [address] | | | | | | [phone] | | | | | | | [...] 2019 | Visit | Gynecology | DO Jackleyn Garcia | | | | | | [address] | | | | | | [place] | | | | | | [address] | | | | | | [phone] | | | | | | | [...] | | | | | [place] [address] | | | | | | [phone] | | | | | | | | | | | | Azul Yeboah, | | | | | | MD [address] | | | | | | [place] | | | | | | [place] [address] | | | | | | [phone] | | | | | | | [...] | | | | | | [place] [address] | | | | | | [phone] | | | | | | | | +--------+ + + + + documented as of this encounter Visit Diagnoses + + | Diagnosis | + + | Right acute otitis media - Primary Unspecified otitis media | + + | Elevated blood pressure reading Elevated blood pressure reading without diagnosis of | | hypertension | + + documented in this encounter
--- OUTSIDE RECORDS SUMMARY | ~2020-02-18 | XMS | Encounter Summary ---
Demographics + + + | Address | [address] | | | [place] [address] | + + + | Home Phone | | + + + | Preferred Language | Unknown | + + + | Marital Status | Single | + + + | Sikhism Affiliation | Unknown | + + + | Race | Unknown | + + + | Ethnic Group | Unknown | + + + Author + + + | Author | [facility] | | | and [place] | + + + | Organization | [facility] | | | [...] Team Providers + +------+ + | Care Psychiatric Therapist Name | Role | Phone | + +------+ + | Erika Ernst DO | PCP | | + +------+ + Reason for Visit + + + | Reason | Comments | + + + | Referral | | + + + Encounter Details +--------+ + + + + | Date | Type | Department | Care Team | Description | +--------+ + + + + | 01/27/ | Telephone | [facility] | Erika Ernst, | Referral | | 2020 | | [facility] | DO [address] | | | | | [facility] [address] | [place] [address] | | | | | [address] [place], | [phone] | | | | | [place] [address] | | | | | | [phone] | | | +--------+ + + + [...] | | | | | [place] [address] | | | | | | [phone] | | | | | | | | | | | | Julia Fisher, | | | | | | PT | | +--------+ + + + + | 02/18/ | Appointment | Rehabilitation | Erika Ernst, | | | 2019 | | | DO [address] [place] | | | | | | [place] [address] | | | | | | [phone] | | | | | | | | | | | | [facility] OT | | +--------+ + + + + | 02/25/ | Office | Primary Care | Erika Ernst, | | | 2019 | Visit | | DO [address] [place] | | | | | | [place] [address] | | | | | | [phone] | | | | | | | [...] | | | | | | [place] [address] | | | | | | [phone] | | | | | | | | +--------+ + + + + | 02/27/ | Appointment | Radiology | Dhara, | | | 2019 | | | [address]WA[address] Ross [address] | | | | | | [address] [facility], | | | | | | [place] [address] | | | | | | [phone] | | | | | | | | +--------+ + + + + | 03/04/ | Appointment | Rehabilitation | Genesis Ayon OT | | | 2019 | | | | | +--------+ + + + + | 03/09/ | Office | Orthopedic Surgery | Jeffrey Gandhi, | | | 2019 | Visit | | [address] | | | | | | [place] [address] | | | | | | [phone] | | | | | | | [...] [place] | | | | | | [address] | | | | | | [phone] | | | | | | | [...] | | | | | [place] [address] | | | | | | [phone] | | | | | | | | | | | | Azul Yeboah, | | | | | | [address] | | | | | | [place] | | | | | | [place] [address] | | | | | | [phone] | | | | | | | | +--------+ + + + + | 04/08/ | Appointment | Nutrition | Janel Webster | | 2019 | | | [place], [place] | | +--------+ + + + + | 05/21/ | Office | Neurology | Dhara, | | | 2020 | Visit | | [address]WA[address] Ross [address] | | | [address] [place], | | | | | | [place] [address] | | | | | | [phone] | | | | | | | | +--------+ + + + + documented as of this encounter Visit Diagnoses Not on filedocumented in this encounter"
--- OUTSIDE RECORDS SUMMARY | ~2020-02-18 | XMS | Encounter Summary ---
Demographics + + + | Address | [address] | | | [place] [address] | + + + | Home Phone | | + + + | Preferred Language | Unknown | + + + | Marital Status | Single | + + + | Mormonism Affiliation | Unknown | + + + | Race | Unknown | + + + | Ethnic Group | Unknown | + + + Author + + + | Author | [facility] | | | and [place] | + + + | Organization | [facility] | | | [...] Team Providers + +------+ + | Care Adobe Block Maker Name | Role | Phone | [...] Provider | | | Services | | Moderate | Erika A, DO | Not, In | | | Required | | persistent | [address] | System | | | | | asthma with | [place], | [place] | | | | | acute | [place] [address] | Health and | | | | | exacerbation | Phone: | Service | | | | | | [phone] | | | | | | | Fax: | | | | | | | [phone] | | +--------+ + + + + + Consultation (Routine) +--------+ + + + + + | Status | Reason | Specialty | Diagnoses / | Referred By | Referred To | | | | | Procedures | Contact | Contact | +--------+ + + + + + | Closed | Specialty | Neurology | Diagnoses | Klever, | Dionisio, | | | Services | | | Erika Salter DO | Luis Rubin MD | | | Required | | Post-traumat | [address] | [address] | | | | | ic brain | [place], | [place] | | | | | syndrome | [place] [address] | [place], [place] | | | | | | Phone: | [phone] Phone: | | | | | | [phone] | [phone] | | | | | | Fax: | Fax: | | | | | | [phone] | [phone] | +--------+ + + + + + Reason for Visit + + + | Reason | Comments | + + + | Follow-up | asthma | + + + Encounter Details +--------+---------+ + + + | Date | Type | Department | Care Team | Description | +--------+---------+ + + + | 04/12/ | Office | [place] [facility] | Erika Ernst, | Moderate persistent | | 2019 | Visit | [facility] | DO [address] [place] | asthma with acute | | | | [facility] | [facility] [place] [address] | exacerbation | | | | [address] [place], | [phone] | (Primary Dx); | | | | [place] [address] | | Environmental | | | | [phone] | | allergies; | | | | | | Post-traumatic brain | | | | | | syndrome | +--------+---------+ + + + Social History [...] + + + | Blood Pressure | 138/88 | 04/12/2019 2:33 PM | | | | | PDT | | + + + + + | Pulse | 103 | 04/12/2019 2:33 PM | | | | | PDT | | + + + + + | Temperature | - | - | | + + + + + | Respiratory Rate | 18 | 04/12/2019 2:33 PM | | | | | PDT | | + + + + + | Oxygen Saturation | 98% | 04/12/2019 2:33 PM | | | | | PDT | | + + + + + | Inhaled Oxygen | - | - | | | Concentration | | | | + + + + + | Weight | 169.6 kg (374 lb) | 04/12/2019 2:33 PM | | | | | PDT | | + + + + + | Height | 177.8 cm (5' 10") | 04/12/2019 2:33 PM | | | | | PDT | | + + + + + | Body Mass Index | 53.66 | 04/12/2019 2:33 PM | | | | | PDT | | + + + + + documented in this encounter Progress Notes Erika Ernst, - 04/12/2019 2:30 PM PDTFormatting of this note might be different fro m the original. Subjective: Patient ID: Andrea Suh is a 28 y.o. female. States asthma is getting worse. She had to use her rescue inhaler 5-6 times this week. She states is still effective. Is using her Qvar and taking singular also. She is taking the all ergy shots through Dr Wheeler's office, ENT with no relief yet. She had [facility]ett [facility] [place] last Fall and in Nov but would like to see a different skirt trimmer for second opinion. Dr Pruett focused on the allergy component of the asthma. States cough is wi th clear sputum. Still recovering from her hand surgery by Dr Noriega. Also, we need to clarif y about her referral I made to Dr Nichole neurology for short term memory loss. She had stated s he had multiple concussions in the past and having short term memory issues but I did not un derstand clearly from prior visit that she felt it was mostly from her 10/17/2017 concussion at work that the issue stemmed from. We will do new referral to clarify that is Work comp. Review of Systems As above Objective: BP 138/88 | Pulse 103 | Resp 18 | Ht 1.778 m (5' 10") | Wt (!) 169.6 kg (374 lb) | SpO 2 98% | BMI 53.66 kg/m Physical Exam Constitutional: She is oriented to person, place, and time. She appears well-developed and well-nourished. No distress. HENT: Head: Normocephalic and atraumatic. Eyes: Pupils are equal, round, and reactive to light. EOM are normal. Cardiovascular: Normal rate, regular rhythm and normal heart sounds. No murmur heard. Pulmonary/Chest: Effort normal. No respiratory distress. She has no wheezes. She has no ral es. Diminished breast sounds in bases. Neurological: She is alert and oriented to person, place, and time. No cranial nerve defici t. Skin: Skin is warm and dry. Psychiatric: She has a normal mood and affect. Her behavior is normal. Assessment: 1. Moderate persistent asthma with acute exacerbation Pulmonology, External - AMB Referral - 2. Environmental allergies 3. Post-traumatic brain syndrome AMB Referral to [facility] Plan: Referral to Professor Of Architecture for second opinion and continue current inhalers. Prednisone tape r. Continue allergy shots. Repeat referral to Dr Nichole neurology to clarify that this is Work comp referral. documented in this en counter Plan of Treatment +--------+ + + + + | Date | Type | Specialty | Care Team | Description | +--------+ + + + + | 02/18/ | Appointment | Rehabilitation | Erika Ernst, | | | 2019 | | | DO [address] [place] | | | | | | [place] [address] | | | | | | [phone] | | | | | | | | | | | | Julia Fisher, | | | | | | PT | | +--------+ + + + + | 02/18/ | Appointment | Rehabilitation | Erika Ernst, | | | 2019 | | | DO [address] [place] | | | | | | [place] [address] | | | | | | [phone] | | | | | | | | | | | | Genesis Ayon OT | | +--------+ + + + + | 02/25/ | Office | Primary Care | Erika Ernst, | | | 2019 | Visit | | DO [address] [place] | | | | | | [place] [address] | | | | | | [phone] | | | | | | | [...] | | | | | [place] [address] | | | | | | [phone] | | | | | | | | +--------+ + + + + | 02/27/ | Appointment | Radiology | Dhara, | | | 2019 | | | [address] | | | | | | [address] [facility], | | | | | | [place] [address] | | | | | | [phone] | | | | | | | [...] [place] | | | | | | [place] [address] | | | | | | [phone] | | | | | | | [...] [place] | | | | | | [address] | | | | | | [phone] | | | | | | | [...] | | | | | [place] [address] | | | | | | [phone] | | | | | | | | | | | | Azul Yeboah, | | | | | | MD [address] | | | | | | [place] | | | | | | [place] [address] | | | | | | [phone] | | | | | | | [...] | | | | | | [place] [address] | | | | | | [phone] | | | | | | | | +--------+ + + + + + + +--------+ + + | Name | Type | Priori | Associated Diagnoses | Order Schedule | | | | ty | | | + + +--------+ + + | AMB Referral to CC | Outpatient | Routin | Post-traumatic | Ordered: 04/12/2019 | | [facility] | Referral | e | brain syndrome | | + + +--------+ + + | Pulmonology, | Outpatient | Routin | Moderate | Ordered: 04/12/2019 | | External - AMB | Referral | e | persistent asthma | | | Referral- | | | with acute | | | | | | exacerbation | | + + +--------+ + + documented as of this encounter Visit Diagnoses + + | Diagnosis | + + | Moderate persistent asthma with acute exacerbation - Primary | + + | Environmental allergies Allergic rhinitis, cause unspecified | + + | Post-traumatic brain syndrome Postconcussion syndrome | + + documented in this encounter
--- OUTSIDE RECORDS SUMMARY | ~2020-02-18 | XMS | Encounter Summary ---
Demographics + + + | Address | [address] | | | [place] [address] | + + + | Home Phone [...] + + + | Author | [facility] | | | and [place] | + + + | Organization | [facility] | | | [...] Team Providers + +------+ + | Care Landfill Gas Technician Name | Role | Phone | [...] | | | to excess | [place] [address] | | | | | | calories | Phone: | | | | | | without | [phone] | | | | | | serious | Fax: | | | | | | comorbidity | [phone] | | | | | | with [...] | | | | | | | [facility] | | | | | | [...] | +--------+ + + + + | 05/14/ | Hospital | [place] [facility] | Erika Ernst, | Essential | | 2019 | Encounter | [facility]ITAL [facility] | DO [address] [place] | hypertension; Morbid | | | | SERVICES [address] | [place] [address] | obesity ([facility]); Body | | | | DR [place], [place] | [phone] | mass index | | | | [address] | | 50.0-59.9, adult | | | | [phone] | Janel Webster, | ([facility]); Dietary | | | | | RD | counseling and | | | | [...] A SMALL AMOUNT | | 0 | 02/19/20 | | | CREA | to affected [...] | 04/12/20 | | | (VITAMIN D3) 79849 | mouth Once a week | tablet [...] | 14 | 0 | 04/21/20 | 12/27/201 | | pseudoephedrine-guai | mouth 2 times daily. | tablet | | 19 | 9 | | FENesin (MUCINEX D) | | | | | | | 60-600 mg per 12 hr | | | | | | | tablet | | | | | | + + + +---------+ + + | QVAR REDIHALER 80 | | | 0 | 05/10/20 | | | MCG/ACT inhaler | | | | 19 | 9 | + + + +---------+ + + documented as of this encounter Progress Notes Janel Webster, RD - 05/14/2019 11:45 AM PDTAssessment: Dx:obesity, HTN Pt has tracked some days of her food intake on her phone hank. Reports high level of stress with family and physical injury/pain with wrist, knee and ankle now. Insomnia has worsened p er pt, often doesn't fall asleep until 2-3am and will sleep in leading her to aguiar out to wo rk per pt. She is constantly on the go and travels frequently between [place] and [place] so she often has to eat dinner late or eats fast food. Says she still sees a counselor onc e per month. Food diary: B: skips or kind bar or pancakes L: salad, tofu or duran burrito D: snack: fruit , veg or candy. Drinks: water, occasional Gatorade. No physical activity due to injuries. Re ports ~1500-1650kcal per day (carbs ~55%, protein ~17#,fat~28% Height:5'10 Current wt:281# Last RD visit wt: 381.7# BMI:54 Nutrition Diagnosis: Overweight/obesity r/t poor eating schedule and lack of physical acti vity AEB pt report of no activity due to injuries, eating food at different times every day and current BMI 54. Intervention: Wt stable from last visit. Discussed the multiple factors that negatively impact weight los s ( sleep, stress, steroids, etc.) and importance of trying to balance these out. Provided ideas to help with meal balance since she is on the go so frequently. Rec pt her some time i n the am for quiet time with breakfast as well as balancing her calories by spreading her ca lories out throughout the day instead of so sporadically. Goals: 1.) Wake up earlier to have quiet time with breakfast 2.) Meal prep during weekends 3.) Bring dinner to work or get a cooler to store meals in car when traveling 4.) Set a more regular meal time schedule Pt receptive to education. Pt will keep a food diary for next visit. Monitor/Evaluation: Will monitor wt trends, nutrition related labs and food diary. Scheduled for a revisit in 6 to 8 weeks. Time spent with pt: 35 mins Electronically Signed by: Janel Webster RD 05/14/2019 11:45 documented in this encounter Plan of Treatment +--------+ + + + + | Date | Type | Specialty | Care Team | Description | +--------+ + + + + | 02/18/ | Appointment | Rehabilitation | Klever, Erika A, | | | 2019 | | | DO [address] [place] | | | | | | [place] [address] | | | | | | [phone] | | | | | | | | | | | | Julia Fisher, | | | | | | PT | | +--------+ + + + + | 02/18/ | Appointment | Rehabilitation | Erika Ernst, | | | 2019 | | | DO [address] [place] | | | | | | [place] [address] | | | | | | [phone] | | | | | | | | | | | | Genesis Ayon, OT | | +--------+ + + + + | 02/25/ | Office | Primary Care | Erika Ernst, | | | 2019 | Visit | | DO [address] [place] | | | | | | [place] [address] | | | | | | [phone] | | | | | | | [...] | | | | | [place] [address] | | | | | | [phone] | | | | | | | | +--------+ + + + + | 02/27/ | Appointment | Radiology | Dhara, | | | 2019 | | | [address] | | | | | | [address] [facility], | | | | | | [place] [address] | | | | | | [phone] | | | | | | | | +--------+ + + + + | 03/04/ | Appointment | Rehabilitation | Genesis Ayon OT | | | 2019 | | | | | +--------+ + + + + | 03/09/ | Office | Orthopedic Surgery | Jeffrey Gandhi, | | | 2019 | Visit | | [address] [facility] | | | | | | [place] [address] | | | | | | [phone] | | | | | | | [...] [place] | | | | | | [address] | | | | | | [phone] | | | | | | | [...] | | | | | [place] [address] | | | | | | [phone] | | | | | | | | | | | | Azul Yeboah, | | | | | | MD [address] | | | | | | [place] | | | | | | [place] [address] | | | | | | [phone] | | | | | | | [...] | | | | | | [place] [address] | | | | | | [phone] | | | | | | | | +--------+ + + + + + + +--------+ + + | Name | Type | Priori | Associated Diagnoses | Order Schedule | | | | ty | | | + + +--------+ + + | * [place] [facility] | Outpatient | Routin | Class 3 severe | Ordered: 03/15/2019 | | [facility] | Referral | e | obesity due to | | | Services - AMB | | | excess calories | | | Referral | | | without serious | | | | | | comorbidity with | | | | | | body mass index | | | | | | (BMI) of 50.0 to | | | | | | 59.9 in adult ([facility]) | | | | | | Essential | | | | | | hypertension | | + + +--------+ + + documented as of this encounter Visit Diagnoses + + | Diagnosis | + + | Essential hypertension Unspecified essential hypertension | + + | Morbid obesity (HCC) Morbid obesity | + + | Body mass index 50.0-59.9, adult ([facility]) Body Mass Index 50.0-59.9, adult | + + | Dietary counseling and surveillance Dietary surveillance and counseling | + + documented in this encounter"
--- OUTSIDE RECORDS SUMMARY | ~2020-02-18 | XMS | Encounter Summary ---
Demographics + + + | Address | [address] | | | [place] [address] | + + + | Home Phone | | + + + | Preferred Language | Unknown | + + + | Marital Status | Single | + + + | Church Affiliation | Unknown | + + + [...] Team Providers + +------+ + | Care Accountant Tax Name | Role | Phone | + +------+ + | Erika Ernst DO | PCP | | + +------+ + Reason for Visit + + + | Reason | Comments | + + + | Otalgia | | + + + | Nasal Congestion | | + + + Encounter Details +--------+---------+ + + + | Date | Type | Department | Care Team | Description | +--------+---------+ + + + | 11/20/ | Office | [place] [facility] | Anthony Alvarado MD | TMJ | | 2019 | Visit | HOSPITAL ENT [address] | [address] [place] | (temporomandibular | | | | [address] [place] [place] | [place], [place] | joint disorder) | | | | [place], [place] | [address] | (Primary Dx); | | | | [address] | [phone] | Non-seasonal | | | | [phone] | | allergic rhinitis | | | | | | due to pollen; Nasal | | | | | | obstruction; | | | | | | Deviated nasal | | | | | | septum | +--------+---------+ + + + Social History [...] +---------+ + + | Blood Pressure | 140/80 | 11/20/2018 8:29 AM | | | | | PST | | + +---------+ + + | Pulse | 70 | 11/20/2018 8:29 AM | | | | | PST | | + +---------+ + + | Temperature | - | - | | + +---------+ + + | Respiratory Rate | 16 | 11/20/2018 8:29 AM | | | | | PST | | + +---------+ + + | Oxygen Saturation | 100% | 11/20/2018 8:29 AM | | | | | PST | | + +---------+ + + | [...] +---------+ + + documented in this encounter Patient Instructions Patient Instructions Anthony Alvarado MD - 11/20/2018 8:30 AM PSTContinue to use the allergy medications that you are currently taking. Use the saline nasal irrigation once per day. Continue your allergy immunotherapy and follow-up with Dr. Alvarado in 1 year.Electronically sig ran by Anthony Alvarado MD at 11/20/2018 8:45 AM PST documented in this encounter Plan of Treatment +--------+ + + + + | Date | Type | Specialty | Care Team | Description | +--------+ + + + + | 02/18/ | Appointment | Rehabilitation | Erika Ernst, | | | 2019 | | | DO | | | | | | [place] [address] | | | | | | [phone] | | | | | | | | | | | | Julia Fisher, | | | | | | PT | | +--------+ + + + + | 02/18/ | Appointment | Rehabilitation | Erika Ernst, | | | 2019 | | | DO [address] [place] | | | | | | [place] [address] | | | | | | [phone] | | | | | | | | | | | | Genesis Ayon OT | | +--------+ + + + + | 02/25/ | Office | Primary Care | Erika Ernst, | | | 2019 | Visit | | DO [address] [place] | | | | | | [place] [address] | | | | | | [phone] | | | | | | | | +--------+ + + + + | 02/25/ | Appointment | Rehabilitation | Genesis Ayon OT | | | 2019 | | | | | +--------+ + + + + | 02/26/ | Virtual | Rehabilitation | Usha Rodriguez | | | 2019 | Office | | MD Laura [address] | | | | Visit | | [address] [place] | | | | | | [place] [address] | | | | | | [phone] | | | | | | | | +--------+ + + + + | 02/27/ | Appointment | Radiology | Dhara, | | | 2019 | | | [address] | | | | | | [address] [facility] | | | | | | [place] [address] | | | | | | [phone] | | | | | | | [...] [place] | | | | | | [place] [address] | | | | | | [phone] | | | | | | | [...] [place] | | | | | | [address] | | | | | | [phone] | | | | | | | [...] | | | | | [place] [address] | | | | | | [phone] | | | | | | | | | | | | Azul Yeboah, | | | | | | MD [address] | | | | | | [place] | | | | | | [place] [address] | | | | | | [phone] | | | | | | | | +--------+ + + + + | 04/08/ | Appointment | Nutrition | Janel Webster | | | 2019 | | | [place], HKOA | | +--------+ + + + + | 05/21/ | Office | Neurology | Dhara, | | | 2020 | Visit | | [address] | | | | | | [address] [facility] [place], | | | | | | [place] [address] | | | | | | [phone] | | | | | | | | +--------+ + + + + documented as of this encounter Visit Diagnoses + + | Diagnosis | + + | TMJ (temporomandibular joint disorder) - Primary Temporomandibular joint disorders, | | unspecified | + + | Non-seasonal allergic rhinitis due to pollen | + + | Nasal obstruction Other diseases of nasal cavity and sinuses | + + | Deviated nasal septum | + + documented in this encounter"
--- OUTSIDE RECORDS SUMMARY | ~2020-02-18 | XMS | Encounter Summary ---
Demographics + + + | Address | [address] | | | [place] [address] | + + + | Home Phone | | + + + | Preferred Language | Unknown | + + + | Marital Status | Single | + + + | Advent Affiliation | Unknown | + + + | Race | Unknown | + + + | Ethnic Group | Unknown | + + + Author + + + | Author | [facility] | | | and [place] | + + + | Organization | [facility] | | | and [place] | + [...] Team Providers + +------+ + | Care Telephone Order Clerk Name | Role | Phone | + +------+ + | Erika Ernst DO | PCP | | + +------+ + Reason for Visit + + + | Reason | Comments | + + + | Advice Only | ear pain | + + + Encounter Details +--------+ + + + + | Date | Type | Department | Care Team | Description | +--------+ + + + + | 12/13/ | Telephone | [place] [facility] | Britt Torres, | Advice Only (ear | | 2020 | | [facility] | CC HARVESTER OPERATOR | pain ) | | | | [facility] [address] [place], | | | | | | [place] [address] | | | | | | [phone] | | | +--------+ + + + [...] | | | | | [place], [place] [address] | | | | | | [phone] | | | | | | | | | | | | Julia Fisher, | | | | | | PT | | +--------+ + + + + | 02/18/ | Appointment | Rehabilitation | Erika Ernst, | | | 2019 | | | DO [address] [place] | | | | | | [place] [address] | | | | | | [phone] | | | | | | | | | | | | Genesis Ayon OT | | +--------+ + + + + | 02/25/ | Office | Primary Care | Erika Ernst, | | | 2019 | Visit | | DO [address] [place] | | | | | | [place] [address] | | | | | | [phone] | | | | | | | [...] | | | | | [place] [address] | | | | | | [phone] | | | | | | | | +--------+ + + + + | 02/27/ | Appointment | Radiology | Dhara, | | | 2019 | | | [address] | | | | | | [address] [facility], | | | | | | [place] [address] | | | | | | [phone] | | | | | | | | +--------+ + + + + | 03/04/ | Appointment | Rehabilitation | Genesis Ayon OT | | | 2019 | | | | | +--------+ + + + + | 03/09/ | Office | Orthopedic Surgery | Jeffrey Gandhi, | | | 2019 | Visit | | MD [address] [facility] | | | | | | [place] [address] | | | | | | [phone] | | | | | | | [...] [place] | | | | | | [address] | | | | | | [phone] | | | | | | | | +--------+ + + + + | 03/25/ | Appointment | Rehabilitation | Genesis Ayon OT | | 2019 | | | | | +--------+ + + + + | 04/08/ | Office | Neurology | Erika Enrst, | | | 2019 | Visit | | DO [address] [place] | | | | | | [place] [address] | | | | | | [phone] | | | | | | | | | | | | Azul Yeboah, | | | | | | MD [address] | | | | | | [place] | | | | | | [place] [address] | | | | | | [phone] | | | | | | | [...] | | | | | | [place] [address] | | | | | | [phone] | | | | | | | | +--------+ + + + + documented as of this encounter Visit Diagnoses Not on filedocumented in this encounter"
--- OUTSIDE RECORDS SUMMARY | ~2020-02-18 | XMS | Encounter Summary ---
Demographics + + + | Address | [address] | | | [place] [address] | + + + | Home Phone [...] + + | Author | [facility] | | | and [place] | + + + | Organization | [facility] | | | and [...] Team Providers + +------+ + | Care Manufacturing Coordinator Name | Role | Phone | [...] | | | of left | [place] [address] | [place] [address] | | | | | ankle, | Phone: | Phone: | | | | | initial | [phone] | [phone] | | | | | encounter | Fax: | Fax: | | | | | Procedures | [phone] | [phone] | | | | | PT EVAL AND | | | | | | | TREAT | | | +--------+ + + + + + Encounter Details +--------+ + + + + | Date | Type | Department | Care Team | Description | +--------+ + + + + | 08/14/ | Hospital | [facility] [facility] | Erika Ernst, | Sprain of left | | 2017 | Encounter | HOSPITAL THERAPY PT | DO [address] | ankle, subsequent | | | | [address] [place] | [place] [address] | encounter (Primary | | | | [place], [place] | [phone] | Dx) | | | | [address] | | | | | | [phone] | Nick Barrios I, PT | | [...] Progress Notes Nick Barrios I, PT - 08/14/2018 6:03 PM PSTFormatting of this note might be different fro m the original. Patient Information Patient: Andrea Suh Ordering Physician: Erika Ernst DO Claim #: [id number] Date of Injury: 06/11/2018 Visits since the Date of Injury Date First Treated: 07/05/2018 Total number of visits: 9 Last Period's Progress Information Period (not required for initial evaluation) From: 07/05/18 To: 08/14/2018 Number of visits for the above period: 9 Number of missed appointments for the above period: 0 Diagnosis Information Current Pain: Pain Assessment: Pain Rating Pre Assessment: 5 Pain Rating Post Assessment: 5 Location: 5/10 L medial ankle pain, 3/10 L lateral ankle pain Diagnosis: Encounter Diagnoses Code Name Primary? S93.402D Sprain of left ankle, subsequent encounter Yes General Requirements of Job Describe general requirements of job: Patient states that job requires frequent driving, walking, and stair climbing. Dates: Previous exam: 07/05/18 Current exam: 08/14/2018 ROM / Strength ROM at last Assessment L Ankle Dorsiflexion 0-20: 0 degrees L Ankle Plantar Flexion 0-45: 43 degrees L Ankle Inversion 0-45: 14 degrees L Ankle Eversion 0-25 : 15 degrees RLE AROM (degrees) R Ankle Dorsiflexion 0-20: 5 degrees R Ankle Plantar Flexion 0-45: 55 degrees R Ankle Inversion 0-45: 30 degrees R Ankle Eversion 0-25 : 18 degrees Current ROM Range of Motion (measured in degrees): LLE AROM (degrees) L Ankle Dorsiflexion 0-20: 5 L Ankle Plantar Flexion 0-45: 47 L Ankle Inversion 0-45: 40 L Ankle Eversion 0-25 : 22 RLE AROM (degrees) R Ankle Dorsiflexion 0-20: 6 R Ankle Plantar Flexion 0-45: 55 R Ankle Inversion 0-45: 38 R Ankle Eversion 0-25 : 20 Strength at last Assessment LLE Strength L Hip Flexion: 4+/5 L Hip Extension: 4+/5 L Hip ABduction: 4/5 Left Internal Rotation: 4+/5 good plus, left L Knee Flexion: 4+/5 L Knee Extension: 5/5 L Ankle Dorsiflexion: 4/5 L Ankle Plantar Flexion: 4/5 RLE Strength R Hip Flexion: 4+/5 R Hip Extension: 4+/5 R Hip ABduction: 4/5 Right Internal Rotation: 4+/5 good plus, right Right External Rotation: 4+/5 good plus, right R Knee Flexion: 4+/5 R Knee Extension: 5/5 R Ankle Dorsiflexion: 5/5 R Ankle Plantar Flexion: 5/5 MMT: Hip, Rehab Eval Left Internal Rotation: 4+/5 good plus, left Right Internal Rotation: 4+/5 good plus, right Right External Rotation: 4+/5 good plus, right Current Strength Strength: To assess at next visit. Patient demonstrates tolerance of increased intensity of LE strengthening exercises today when compared to initial assessment. Proposed Treatment Dates for Majoris Review Proposed treatments date: 08/10/2018 to 11/02/2018 Plan Date of Onset: 06/11/2018 Start of Care Date: 07/05/2018 Requested # of Visits: 8 visits 2x/week for 4 weeks Certification From: 08/10/2018 Certification To: 11/02/2018 Treatment Plan/Interventions PT EvaluationPT [id number] - Therapeutic [id number] - Neuromuscular [id number] 7116 - Gait [id number] - Therapeutic [id number] - Manual [id number] - Self Care/Ho me [id number] - Group Therapeutic [id number] - Aquatic Therapy/[id number] - Io [id number] - TENS Application/[id number] - Electrical Stimulation, [id number] - Ultrasound Patient and/or family has indicated understanding of treatment needs and actively participa everardo in the creation of this plan for care. Plan Date of Onset: No data was found Start of Care Date: 07/05/2018 Requested # of Visits: No data was found visits for No data was found Certification From: No data was found Certification To: No data was found Treatment Plan/Interventions Patient and/or family has indicated understanding of treatment needs and actively participa everardo in the creation of this plan for care. Brief narrative of progress to date, functional/objective limitation to be address in the p roposed treatment period, and objective or functional gain achieved to justify continuing th erapy (if not initial request) PT Progress Summary 08/14/18: Patient has demonstrated improvements in L ankle ROM, but con tinues to lack equal or greater motion in ankle DF/PF. Continues to report L ankle pain; alt siria this may be linked to activity outside of physical therapy including hiking. Patient t olerated increased intensity of NMR and TE exercises today with reports of muscle fatigue an d requiring REMOTE INPATIENT CODER with grab bar in order to maintain balance. Physical therapy remains necessa ry in order to aid patient in managing her pain symptoms, improving LE strength and balance, and allowing patient to return to prior level of function. PT Recertification 08/10/18: Patient has demonstrated improved L ankle pain symptoms as well as demonstrating improved tolerance of L ankle strength and neuromuscular re-education exer cises. Patient is appropriate for continuation of physical therapy services into [facility] period in order to return to prior level of function. PT evaluation 07/05/18: 28 y/o female patient presents to physical therapy with diagnosis of sprain of calcaneofibular ligament of L ankle and complaints of lateral and medial ankle pa in during ambulation as well as limitations in standing and walking tolerance. Evaluation re veals swelling of L lateral ankle, limited L ankle ROM, L ankle weakness, B hip weakness, an d gait abnormalities. Patient would benefit from skilled physical therapy in order to addres s noted deficits and allow for return to prior level of function. Barriers to improving with physical therapy include upcoming R hand surgery and current symptoms of constant deep, ach ing pain of R distal thigh following fall that lead to L ankle injury. Prognosis of returning to independent self-management in the proposed treatment: Please cho ose one (Likely / Unlikely / Guarded/ N/A): Likely Prognosis of returning to prior occupation in the proposed treatment period: Please choose one (Likely / Unlikely / Guarded/ N/A): Likely Comments, including work recommendations: Patient is only able to tolerate ambulating 0.24 miles prior to L ankle pain worsening to t he point of requiring rest. She has not demonstrated the ability to ascend/descend stairs wi thout pain symptoms. Patient requires further physical therapy to improve pain management, L E strength, and balance in order to return to prior level of function. Electronically signed by: Nick Barrios PT, 08/14/2018 18:05 oseph, Nick Szymanski, PT - 08/14/2018 6:01 PM PSTFormat ting of this note might be different from the original. [facility] PT [address] [place] [address] Physical Therapy Daily Treatment Note Date: 08/14/2018 Patient Information Patient Name: Andrea Suh Date of : 1990 Age: 28 y.o. Encounter Diagnoses Code Name Primary? S93.402D Sprain of left ankle, subsequent encounter Yes Date of Onset: 06/11/2018 Referring Provider: Erika Ernst DO Objective Pain Assessment: Pain Rating Pre Assessment: 5 Pain Rating Post Assessment: 5 Location: 5/10 L medial ankle pain, 3/10 L lateral ankle pain Standardized Tests: Lower Extremity Functional Scale (LEFS) Any of your usual work, housework or school activities: 2 - Moderate difficulty Your usual hobbies, recreational or sporting activities: 2 - Moderate difficulty Getting into or out of the bath: 2 - Moderate difficulty Walking between rooms: 2 - Moderate difficulty Putting on your shoes or socks: 2 - Moderate difficulty Squattin - A little bit of difficulty Lifting an object, like a bag of groceries from the floor: 1 - Quite a bit of difficulty Performing light activities around your home: 2 - Moderate difficulty Performing heavy activities around your home: 2 - Moderate difficulty Getting into or out of a car: 3 - A little bit of difficulty Walking 2 blocks: 1 - Quite a bit of difficulty Walking a mile: 1 - Quite a bit of difficulty Going up or down 10 stairs (about 1 flight of stairs): 1 - Quite a bit of difficulty Standing for 1 hour: 1 - Quite a bit of difficulty Sitting for 1 hour: 2 - Moderate difficulty Running on even ground: 0 - Extreme difficulty or unable to perform activity Running on uneven ground: 0 - Extreme difficulty or unable to perform activity Making sharp turns while running fast: 0 - Extreme difficulty or unable to perform activity Hoppin - Extreme difficulty or unable to perform activity Rolling over in bed: 4 - No difficulty Lower Extremity Functional Scale Score (Calculated): 31 Lower Extremity Functional Scale Goal: 75 Lower Extremity Functional Scale Goal Status: Ongoing; 31 Range of Motion (measured in degrees): LLE AROM (degrees) L Ankle Dorsiflexion 0-20: 5 L Ankle Plantar Flexion 0-45: 47 L Ankle Inversion 0-45: 40 L Ankle Eversion 0-25 : 22 RLE AROM (degrees) R Ankle Dorsiflexion 0-20: 6 R Ankle Plantar Flexion 0-45: 55 R Ankle Inversion 0-45: 38 R Ankle Eversion 0-25 : 20 Mobility: Gait Gait Comments: Continues to demonstrate B waddling, excessive upper and lower trunk rotatio n B during swing phase, and B genuvalgum during ambulation Level of [place]: independent Gait Deviations: stride width increased, other (see comments) Today's Treatment Patient Name: Andrea Steeleit/: 1990/ Start Time: 1500 Stop time: 1557 Duration: 57 minutes Timed Treatment Codes: 55 minutes # of PT Visits to Date: 9 Visit Summary: S: Patient states that her L medial and lateral ankle is a bit painful today since attempting to hike earlier in the day. She has been compliant with HEP since last vis it. A: Patient has demonstrated improvements in L ankle ROM, but continues to lack equal or greater motion in ankle DF/PF. Continues to report L ankle pain; although this may be linked to activity outside of physical therapy including hiking. Patient tolerated increased inten sity of NMR and TE exercises today with reports of muscle fatigue and requiring REMOTE INPATIENT CODER with gra b bar in order to maintain balance. Physical therapy remains necessary in order to aid patie nt in managing her pain symptoms, improving LE strength and balance, and allowing patient to return to prior level of function. Next Visit Information: Assess B LE strength; progress NMR and LE strength as tolerated rita shelton, machines Therapy Interventions HEP: ONGOING: Tandem stance 2x60 second holds each foot position 1x/day // Using RTB in doo r jam rather than holding onto with hands. Discontinue PF with theraband in favor of SL heel raise with REMOTE INPATIENT CODER. ONGOING: SLS on even surface 3x30 seconds 1x/day // Double leg heel raise 3x10 3x/wk // forward/lateral step ups on 8" step 3x10 3x/wk each // standing achilles stret ch 3x30 seconds 1x/day. // 4 way ankle PRE yellow theraband 3x10 each direction 3x/wk. // An kle inversion/eversion 3x10 progressing to 20 1x/day // ankle ABC's 3x/day. // Ankle pumps 3 x10 progressing to 20 repetitions 1x/day // ankle circles 3x10 progressing to 20 repetitions each direction 1x/day PT Interventions: Intervention #3 PT INTERVENTION 1: TE - (15 minutes) DBL leg press 1x15 100 lbs., 1x15 120 lbs // SL heel r aise L LE 1x10 // DBL heel raise 1x30 even ground, 1x20 round bosu // additional time requir ed for rest between exercises PT INTERVENTION 2: NMR (10 minutes) Tandem stance on airex beam 2x1 minute each foot positi on with REMOTE INPATIENT CODER as needed with grab bar, SBA // Rhomberg stance on bosu eyes open REMOTE INPATIENT CODER as needed 2x1 minute // additional time required for rest between exercises. PT INTERVENTION 3: TA (30 minutes) Administration of LEFS // Assessment of goals including I with HEP, L ankle ROM, attempted walking for 1 continuous mild (ambulated for 11 minutes a chieving 0.24 miles prior to L ankle pain symptoms leading to discontinuation of walking), a nd L ankle pain symptoms // additional time required for patient education regarding current progress with phyiscal therapy and plan of care going forward. Assessment Rehabilitation potential: Patient demonstrates good potential to achieve established goals and good potential to achieve prior status to address the documented impairments by particip ating in skilled physical therapy services. Goals: Patient Reported Outcome Goals Lower Extremity Functional Scale Goal: 75 Lower Extremity Functional Scale Goal Status: Ongoing; 31 OP PT Goals Goal 1: Patient will demonstrate I with HEP for 3 consecutive weeks in order to improve fun ctional outcomes with physical therapy. Goal 1 Status: Goal met Goal 2: Patient will improve L ankle [...] at 5/10 today Electronically signed by: Nick Barrios, PT, 08/14/2018 18:01 Patient Name: Andrea King Angeli/: 1990/ documented in this en counter Plan of Treatment +--------+ + + + + | Date | Type | Specialty | Care Team | Description | +--------+ + + + + | 02/18/ | Appointment | Rehabilitation | Erika Ernst, | | | 2019 | | | DO [address] | | | | | | [place] [address] | | | | | | [phone] | | | | | | | | | | | | Julia Fisher, | | | | | | PT | | +--------+ + + + + | 02/18/ | Appointment | Rehabilitation | Erika Ernst, | | | 2019 | | | DO [address] [place] | | | | | | [place] [address] | | | | | | [phone] | | | | | | | | | | | | Genesis Ayon OT | | +--------+ + + + + | 02/25/ | Office | Primary Care | Erika Ernst, | | | 2019 | Visit | | [address] [place] [address] | | | | | | [place] [address] | | | | | | [phone] | | | | | | | [...] | | | | | [place] [address] | | | | | | [phone] | | | | | | | | +--------+ + + + + | 02/27/ | Appointment | Radiology | Dhara, | | | 2019 | | | DWAINE Ross [address] [place], | | | | | | [place] [address] | | | | | | [phone] | | | | | | | [...] ST | | | | | | [place] [address] | | | | | | [phone] | | | | | | | [...] [place] | | | | | | [address] | | | | | | [phone] | | | | | | | [...] | | | | | [place] [address] | | | | | | [phone] | | | | | | | | | | | | Azul Yeboah, | | | | | | [address] | | | | | | [place] | | | | | | [place] [address] | | | | | | [phone] | | | | | | | [...] | | | | | | [place] [address] | | | | | | [phone] | | | | | | | | +--------+ + + + + documented as of this encounter Visit Diagnoses + + | Diagnosis | + + | Sprain of left ankle, subsequent encounter - Primary | + + documented in this encounter
--- OUTSIDE RECORDS SUMMARY | ~2020-02-18 | XMS | Encounter Summary ---
Demographics + + + | Address | [address] | | | [place] [address] | + + + | Home Phone | | + + + | Preferred Language | Unknown | + + + | Marital Status | Single | + + + | Muslim Affiliation | Unknown | + + + | Race | Unknown | + + + | Ethnic Group | Unknown | + + + Author + + + | Author | [facility] | | | and [place] | + + + | Organization | [facility] | | [...] Team Providers + +------+ + | Care Wall Worker Name | Role | Phone | + +------+ + | Erika Ernst DO | PCP | | + +------+ + Reason for Visit +--------+ + | Reason | Comments | +--------+ + | Other | screening questions covid-19 | +--------+ + Encounter Details +--------+ + + + + | Date | Type | Department | Care Team | Description | +--------+ + + + + | 12/22/ | Telephone | [facility] | Erika Ernst, | Other (screening | | 2019 | | [facility] | DO [address] [place] | questions covid-19) | | | | [facility] | [place] [address] | | | | [address] [place], | [phone] | | | | | [place] [address] | | | | | | [phone] | | | +--------+ + + + [...] | | | | | [place] [address] | | | | | | [phone] | | | | | | | | | | | | Julia Fisher, | | | | | | PT | | +--------+ + + + + | 02/18/ | Appointment | Rehabilitation | Erika Ernst, | | | 2019 | | | DO [address] [place] | | | | | | [place] [address] | | | | | | [phone] | | | | | | | | | | | | Genesis Ayon, OT | | +--------+ + + + + | 02/25/ | Office | Primary Care | Erika Ernst, | | | 2019 | Visit | | DO [address] [place] | | | | | | [place] [address] | | | | | | [phone] | | | | | | | [...] | | | | | [place] [address] | | | | | | [phone] | | | | | | | | +--------+ + + + + | 02/27/ | Appointment | Radiology | Dhara, | | | 2019 | | | DWAINE Ross [address] | | | | | | [address] [facility], | | | | | | [place] [address] | | | | | | [phone] | | | | | | | | +--------+ + + + + | 03/04/ | Appointment | Rehabilitation | Genesis Ayon OT | | 2019 | | | | | +--------+ + + + + | 03/09/ | Office | Orthopedic Surgery | Jeffrey Gandhi, | | | 2019 | Visit | | [address] | | | | | | [place] [address] | | | | | | [phone] | | | | | | | [...] [place] | | | | | | [address] | | | | | | [phone] | | | | | | | [...] | | | | | [place] [address] | | | | | | [phone] | | | | | | | | | | | | Azul Yeboah, | | | | | | MD [address] | | | | | | [place] | | | | | | [place] [address] | | | | | | [phone] | | | | | | | [...] | | | | | | [place] [address] | | | | | | [phone] | | | | | | | | +--------+ + + + + documented as of this encounter Visit Diagnoses Not on filedocumented in this encounter"
--- OUTSIDE RECORDS SUMMARY | ~2020-02-18 | XMS | Encounter Summary ---
Demographics + + + | Address | [address] | | | [place] [address] | + + + | Home Phone | | + + + | Preferred Language | Unknown | + + + | Marital Status | Single | + + + | Hinduism Affiliation | Unknown | + + + [...] Phone | + + +---------+ + | Bhavnaleslie Boss | ECON | Unknown | | + + +---------+ + Care Team Providers + +------+ + | Care Visual Educator Name | Role | Phone | + +------+ + | Erika Ernst DO | PCP | | + +------+ + Reason for Visit + + + | Reason | Comments | + + + | Re-assessment/ | | | Significant Change | | | Care Plan | | + + + Evaluate & [...] | | | of left | [place] [address] | [place] [address] | | | | | ankle, | Phone: | Phone: | | | | | initial | [phone] | [phone] | | | | | encounter | Fax: | Fax: | | | | | Procedures | [phone] | [phone] | | | | | PT EVAL AND | | | | | | | TREAT | | | +--------+ + + + + + Encounter Details +--------+ + + + + | Date | Type | Department | Care Team | Description | +--------+ + + + + | 08/10/ | Hospital | [facility] [facility] | Erika Ernst, | Sprain of left | | 2018 | Encounter | HOSPITAL [facility] PT | DO [address] | ankle, subsequent | | | | [address] [place] | [place] [address] | encounter (Primary | | | | [place], [place] | [phone] | Dx) | | | | [address] | | | | | | [phone] | Nick Barrios I, PT | | [...] Progress Notes Nick Barrios I, PT - 08/10/2018 5:12 PM PSTFormatting of this note might be different fro m the original. Physical Therapy Plan of Care Date: 08/10/2018 Patient Name: Andrea Suh Date of : 1990 Encounter Diagnoses Code Name Primary? S93.402D Sprain of left ankle, subsequent encounter Yes Date of Onset: 06/11/2018 Start of Care Date: 07/05/2018 Requested # of Visits: 8 visits 2x/week for 4 weeks Certification From: 08/10/2018 Certification To: 11/02/2018 Clinical Impression: PT Recertification 08/10/18: Patient has demonstrated improved L ankle pain symptoms as well as demonstrating improved tolerance of L ankle strength and neuromusc ular re-education exercises. Patient is appropriate for continuation of physical therapy ser vices into new certification period in order to return to prior [...] fall that lead to L ankle injury. Goals: Patient Reported Outcome Goals Lower Extremity Functional Scale Goal: 75 Lower Extremity Functional Scale Goal Status: Ongoing; to assess at next session OP PT Goals Goal 1: Patient will demonstrate I with HEP for 3 consecutive weeks in order to improve fun ctional outcomes with physical therapy. Goal 1 Status: Goal met Goal 2: Patient will improve L ankle ROM equal to or greater than R ankle Goal 2 Status: Ongoing; assess at next session Goal 3: Patient will tolerate walking for 1 mile without taking breaks due to pain to retur n to previous level of activity. Goal 3 Status: Ongoing; assess at next session Goal 4: Patient will experience reduced L ankle pain of 1/10 or less for 2 consecutive week s in order to return to previous level of activity. Goal 4 Status: Ongoing; pain rated at 4/10 today 08/10/18 Treatment Plan/Interventions PT EvaluationPT Re-[id number] - Therapeutic [id number] - Neuromuscular Reeducation9 7116 - Gait Nokzamgh28058 - Therapeutic Xewmbuzmrg94461 - Manual Mdknkkp30747 - Self Care/Ho me Afaqrnyvwp13437 - Group Therapeutic Mxdyliuvll13053 - Aquatic Therapy/Dcfzpgjvi01210 - Io naiyrjisbix89061 - TENS Application/Nfgkxxfwruk75967 - Electrical Stimulation, Mwlalwdnhc215 35 - Ultrasound Electronically signed by: Nick Barrios PT, 08/10/2018 17:12 Patient Name: Andrea Suh/: 1990/ osephNick I PT - 08/10/2018 5:[address] [facility] [address] [place] [address] Physical Therapy Daily Treatment Note Date: 08/10/2018 Patient Information Patient Name: Andrea Suh Date of : 1990 Age: 28 y.o. Encounter Diagnoses Code Name Primary? S93.402D Sprain of left ankle, subsequent encounter Yes Date of Onset: 06/11/2018 Referring Provider: Erika Ernst DO Objective Pain Assessment: Pain Rating Pre Assessment: 4 Pain Rating Post Assessment: 3 Location: Patient reports 4/10 pain in L medial ankle since last session and particularly d uring inversion TB exercises Standardized Tests: Lower Extremity Functional Scale (LEFS) Lower Extremity Functional Scale Goal: 75 Lower Extremity Functional Scale Goal Status: Ongoing; to assess at next session Mobility: Gait Gait Comments: Continues to demonstrate B waddling, excessive upper and lower trunk rotatio n during swing phase, and B genuvalgum during ambulation Level of Lee: independent Gait Deviations: stride width increased, other (see comments) Today's Treatment Patient Name: Andrea Suh/: 1990/ Start Time: 1500 Stop time: 1549 Duration: 49 minutes Timed Treatment Codes: 45 minutes # of PT Visits to Date: 8 Visit Summary: S: Patient states that her L medial ankle has been painful and sore since la st session, particularly when performing TB inversion exercises; describes pain as sharp. Sh romario has been compliant with HEP since last session. A: Patient has demonstrated improved tole cachorro of L LE strength and NMR exercises since beginning physical therapy. Patient reports t hat she feels better overall since beginning physical therapy. She continues to report ankle pain symptoms, but symptoms are noted to be improved. Today patient tolerated gentle STM ap plied to L medial ankle musculature without increased symptoms of pain, but did report mild tenderness. Patient able to tolerate progression of LE strength and NMR exercises today. Phy sical therapy remains medically necessary in order to continue improvement of L ankle pain s ymptoms as well as improving L ankle strength and stability to tolerate dynamic movements in home and community environments. Next Visit Information: Assess goal, B LE strength/ROM; complete majoris pw, continue progr ession of LE strength and balance exercises with eyes closed, hip and toe strengthening. Therapy Interventions HEP: ONGOING: Tandem stance 2x60 second holds each foot position 1x/day // Using RTB in doo r jam rather than holding onto with hands. Discontinue PF with theraband in favor of SL heel raise with MANAGER PHOTO. ONGOING: SLS on even surface 3x30 seconds [...] to 20 repetitions each direction 1x/day PT INTERVENTION 1: TE - (15 minutes) DBL leg press 2x15 100 lbs., 1x15 110 lbs // Lateral s tep up and over 8 inch step 1x10 // Forward step ups 1x15 each LE 8 inch step // additional time required for rest between exercises PT INTERVENTION 2: NMR (15 minutes) Tandem gait 2x20 ft SBA // Rhomberg stance on airex eye s closed MANAGER PHOTO as needed 2x1 minute // Lateral gait on airex beam 2x30 each direction SBA // F orward/backward tandem gait on airex beam within parallel bars 4x each direction with 2 seco nd pause after each step // additional time required for rest between exercises. PT MANUAL THERAPY 1: STM - (15 minutes) Applied to medial L ankle and gastroc Assessment Rehabilitation potential: Patient demonstrates good potential to achieve established goals and good potential to achieve prior status to address the documented impairments by particip ating in skilled physical therapy services. Goals: Patient Reported Outcome Goals Lower Extremity Functional Scale Goal: 75 Lower Extremity Functional Scale Goal Status: Ongoing; to assess at next session OP PT Goals Goal 1: Patient will demonstrate I with HEP for 3 consecutive weeks in order to improve fun ctional outcomes with physical therapy. Goal 1 Status: Goal met Goal 2: Patient will improve L ankle ROM equal to or greater than R ankle Goal 2 Status: Ongoing; assess at next session Goal 3: Patient will tolerate walking for 1 mile without taking breaks due to pain to retur n to previous level of activity. Goal 3 Status: Ongoing; assess at next session Goal 4: Patient will experience reduced L ankle pain of 1/10 or less for 2 consecutive week s in order to return to previous level of activity. Goal 4 Status: Ongoing; pain rated at 4/10 today 08/10/18 Electronically signed by: Nick Barrios, PT, 08/10/2018 17:10 Patient Name: Andrea Suh/: 1990/ documented in [...] | | | | | [place] [address] | | | | | | [phone] | | | | | | | | | | | | Julia Fisher, | | | | | | PT | | +--------+ + + + + | 02/18/ | Appointment | Rehabilitation | Erika Ernst, | | | 2019 | | | DO [address] [place] | | | | | | [place] [address] | | | | | | [phone] | | | | | | | | | | | | [facility] | | +--------+ + + + + | 02/25/ | Office | Primary Care | Erika Ernst, | | | 2019 | Visit | | DO [address] [place] | | | | | | [place] [address] | | | | | | [phone] | | | | | | | [...] | | | | | [place] [address] | | | | | | [phone] | | | | | | | | +--------+ + + + + | 02/27/ | Appointment | Radiology | Dhara, | | | 2019 | | | DWAINE Ross [address] [place], | | | | | | [place] [address] | | | | | | [phone] | | | | | | | | +--------+ + + + + | 03/04/ | Appointment | Rehabilitation | [facility] | | | 2019 | | | | | +--------+ + + + + | 03/09/ | Office | Orthopedic Surgery | Jeffrey Gandhi, | | 2019 | Visit | | [address] [facility] | | | | | | [place] [address] | | | | | | [phone] | | | | | | | [...] [place] | | | | | | [address] | | | | | | [phone] | | | | | | | [...] | | | | | [place] [address] | | | | | | [phone] | | | | | | | | | | | | Azul Yeboah, | | | | | | [address] | | | | | | [place] | | | | | | [place] [address] | | | | | | [phone] | | | | | | | [...] | | | | | | [place] [address] | | | | | | [phone] | | | | | | | | +--------+ + + + + documented as of this encounter Visit Diagnoses + + | Diagnosis | + + | Sprain of left ankle, subsequent encounter - Primary | + + documented in this encounter
--- OUTSIDE RECORDS SUMMARY | ~2020-02-18 | XMS | Encounter Summary ---
Demographics + + + | Address | [address] | | | [place] [address] | + + + | Home Phone | | + + + | Preferred Language | Unknown | + + + | Marital Status | Single | + + + | Caodaism Affiliation | Unknown | + + + | Race | Unknown | + + + | Ethnic Group | Unknown | + + + Author + + + | Author | [facility] | | | and [place] | + + + | Organization | [facility] | | | [...] Providers + +------+ + | Care Senior Compliance Officer Name | Role | Phone | + +------+ + | Erika Ernst DO | PCP | | + +------+ + Reason for Visit +--------+ + | Reason | Comments | +--------+ + | Other | Please Advise | +--------+ + Encounter Details +--------+ + + + + | Date | Type | Department | Care Team | Description | +--------+ + + + + | 05/09/ | Telephone | [facility] | Inocencio Noriega | Other (Please | | 2019 | | [facility] | MD [address] | Advise) | | | | [address] [place] | [address] | | | | | [place], [place] | [place] [address] | | | | | [address] | [phone] | | | | | [phone] | | | +--------+ + + + [...] 2019 | | | DO [address] | | | | | | [place] [address] | | | | | | [phone] | | | | | | | | | | | | Julia Fisher, | | | | | | PT | | +--------+ + + + + | 02/18/ | Appointment | Rehabilitation | Erika Ernst, | | | 2019 | | | DO [address] [place] | | | | | | [place] [address] | | | | | | [phone] | | | | | | | | | | | | [facility] | | +--------+ + + + + | 02/25/ | Office | Primary Care | Erika Ernst, | | | 2019 | Visit | | DO [address] [place] | | | | | | [place] [address] | | | | | | [phone] | | | | | | | [...] | | | | | [place] [address] | | | | | | [phone] | | | | | | | | +--------+ + + + + | 02/27/ | Appointment | Radiology | Dhara, | | | 2019 | | | DWAINE Ross [address] | | | | | | [address] [facility], | | | | | | [place] [address] | | | | | | [phone] | | | | | | | [...] [place] | | | | | | [place] [address] | | | | | | [phone] | | | | | | | [...] [place] | | | | | | [address] | | | | | | [phone] | | | | | | | [...] | | | | | [place] [address] | | | | | | [phone] | | | | | | | | | | | | Azul Yeboah, | | | | | | MD [address] | | | | | | [place] | | | | | | [place] [address] | | | | | | [phone] | | | | | | | [...] | | | | | | [place] [address] | | | | | | [phone] | | | | | | | | +--------+ + + + + documented as of this encounter Visit Diagnoses Not on filedocumented in this encounter"
--- OUTSIDE RECORDS SUMMARY | ~2020-02-18 | XMS | Encounter Summary ---
Demographics + + + | Address | [address] | | | [place] [address] | + + + | Home Phone | | + + + | Preferred Language | Unknown | + + + | Marital Status | Single | + + + | Catholic Affiliation | Unknown | + + + | Race | Unknown | + + + | Ethnic Group | Unknown | + + + Author + + + | Author | [facility] | | | and [place] | + + + | Organization | [facility] | | | [...] Team Providers + +------+ + | Care Special Events Driver Name | Role | Phone | + +------+ + | Erika Ernst DO | PCP | | + +------+ + Reason for Visit + + + | Reason | Comments | + + + | Appointment | | + + + Encounter Details +--------+ + + + + | Date | Type | Department | Care Team | Description | +--------+ + + + + | 08/16/ | Telephone | [facility] | Erika Ernst, | Appointment | | 2019 | | [facility] | DO [address] | | | | | [facility] [address] | [place] [address] | | | | [address] [place], | [phone] | | | | | [place] [address] | | | | | | [phone] | | | +--------+ + + + [...] | | | | | [place] [address] | | | | | | [phone] | | | | | | | | | | | | Julia Fisher, | | | | | | PT | | +--------+ + + + + | 02/18/ | Appointment | Rehabilitation | Erika Ernst, | | | 2019 | | | DO [address] [place] | | | | | | [place] [address] | | | | | | [phone] | | | | | | | | | | | | [facility] | | +--------+ + + + + | 02/25/ | Office | Primary Care | Erika Ernst, | | | 2019 | Visit | | DO [address] [place] | | | | | | [place] [address] | | | | | | [phone] | | | | | | | [...] | | | | | | [place] [address] | | | | | | [phone] | | | | | | | | +--------+ + + + + | 02/27/ | Appointment | Radiology | Dhara, | | 2019 | | | [address]WA[address] | | | | | | [address] [facility], | | | | | | [place] [address] | | | | | | [phone] | | | | | | | | +--------+ + + + + | 03/04/ | Appointment | Rehabilitation | Genesis Ayon OT | | | 2019 | | | | | +--------+ + + + + | 03/09/ | Office | Orthopedic Surgery | Jeffrey Gandhi, | | | 2019 | Visit | | MD [address] [facility] | | | | | | [place] [address] | | | | | | [phone] | | | | | | | [...] [place] | | | | | | [address] | | | | | | [phone] | | | | | | | [...] | | | | | [place] [address] | | | | | | [phone] | | | | | | | | | | | | Azul Yeboah, | | | | | | MD [address] | | | | | | [place] | | | | | | [place] [address] | | | | | | [phone] | | | | | | | [...] | | | | | | [place] [address] | | | | | | [phone] | | | | | | | | +--------+ + + + + documented as of this encounter Visit Diagnoses Not on filedocumented in this encounter"
--- OUTSIDE RECORDS SUMMARY | ~2020-02-18 | XMS | Encounter Summary ---
Demographics + + + | Address | [address] | | | [place] [address] | + + + | Home Phone | | + + + | Preferred Language | Unknown | + + + | Marital Status | Single | + + + | Rastafari Affiliation | Unknown | + + + | Race | Unknown | + + + | Ethnic Group | Unknown | + + + Author + + + | Author | [facility] | | | and [place] | + + + | Organization | [facility] | | | and [...] Team Providers + +------+ + | Care Building Performance Specialist Name | Role | Phone | [...] + | 08/08/ | Telephone | [facility] [facility] | Erika Ernst, | Medication Question | | 2019 | | [facility] | DO [address] | | | | | MEDICAL CLIN[facility] [address] | [place] [address] | | | | | [address] [facility], | [phone] | | | | | [place] [address] | | | | | | [phone] | | | +--------+ + + + [...] | | | | | [place] [address] | | | | | | [phone] | | | | | | | | | | | | Julia Fisher, | | | | | | PT | | +--------+ + + + + | 02/18/ | Appointment | Rehabilitation | Erika Ernst, | | | 2019 | | | DO [address] [place] | | | | | | [place] [address] | | | | | | [phone] | | | | | | | | | | | | [facility] | | +--------+ + + + + | 02/25/ | Office | Primary Care | Erika Ernst, | | | 2019 | Visit | | DO [address] [place] | | | | | | [place] [address] | | | | | | [phone] | | | | | | | [...] | | | | | | [place] [address] | | | | | | [phone] | | | | | | | | +--------+ + + + + | 02/27/ | Appointment | Radiology | Dhara, | | | 2019 | | | [address]WAINE [address] | | | | | | [address] [facility], | | | | | | [place] [address] | | | | | | [phone] | | | | | | | | +--------+ + + + + | 03/04/ | Appointment | Rehabilitation | [facility] OT | | | 2019 | | | | | +--------+ + + + + | 03/09/ | Office | Orthopedic Surgery | Jeffrey Gandhi, | | 2019 | Visit | | [address] | | | | | | [place] [address] | | | | | | [phone] | | | | | | | [...] [place] | | | | | | [address] | | | | | | [phone] | | | | | | | [...] | | | | | [place] [address] | | | | | | [phone] | | | | | | | | | | | | Azul Yeboah, | | | | | | MD [address] | | | | | | [place] | | | | | | [place] [address] | | | | | | [phone] | | | | | | | [...] | | | | | | [place] [address] | | | | | | [phone] | | | | | | | | +--------+ + + + + documented as of this encounter Visit Diagnoses Not on filedocumented in this encounter"
--- OUTSIDE RECORDS SUMMARY | ~2020-02-18 | XMS | Encounter Summary ---
Demographics + + + | Address | [address] | | | [place] [address] | + + + | Home Phone [...] Team Providers + +------+ + | Care Hydropulper Name | Role | Phone | + [...] | | | MED[facility] [address] | [place] [address] | | | | | [address] [facility], | [phone] | | | | | [place] [address] | | | | | | [phone] | | | +--------+ + + + [...] | | | | | [place] [address] | | | | | | [phone] | | | | | | | | | | | | Julia Fisher, | | | | | | PT | | +--------+ + + + + | 02/18/ | Appointment | Rehabilitation | Erika Ernst, | | | 2019 | | | DO [address] [place] | | | | | | [place] [address] | | | | | | [phone] | | | | | | | | | | | | [facility] | | +--------+ + + + + | 02/25/ | Office | Primary Care | Erkia Ernst, | | | 2019 | Visit | | DO [address] [place] | | | | | | [place] [address] | | | | | | [phone] | | | | | | | [...] | | | | | | [place] [address] | | | | | | [phone] | | | | | | | | +--------+ + + + + | 02/27/ | Appointment | Radiology | Dhara, | | | 2019 | | | DWAINE Ross [address] | | | | | | [address] [facility], | | | | | | [place] [address] | | | | | | [phone] | | | | | | | | +--------+ + + + + | 03/04/ | Appointment | Rehabilitation | [facility] OT | | | 2019 | | | | | +--------+ + + + + | 03/09/ | Office | Orthopedic Surgery | Jeffrey Gandhi, | | 2019 | Visit | | [address] | | | | | | [place] [address] | | | | | | [phone] | | | | | | | [...] [place] | | | | | | [address] | | | | | | [phone] | | | | | | | [...] | | | | | [place] [address] | | | | | | [phone] | | | | | | | | | | | | Azul Yeboah, | | | | | | MD [address] | | | | | | [place] | | | | | | [place] [address] | | | | | | [phone] | | | | | | | [...] | | | | | | [place] [address] | | | | | | [phone] | | | | | | | | +--------+ + + + + documented as of this encounter Visit Diagnoses Not on filedocumented in this encounter"
--- OUTSIDE RECORDS SUMMARY | ~2020-02-18 | XMS | Encounter Summary ---
Demographics + + + | Address | [address] | | | [place] [address] | + + + | Home Phone [...] Team Providers + +------+ + | Care Adult Day Care Worker Name | Role | Phone | + +------+ + | Erika Ernst DO | PCP | | + +------+ + Reason for Visit +---------+ + | Reason | Comments | +---------+ + | Blister | 1cm blister on right hip. | +---------+ + Encounter Details +--------+---------+ + + + | Date | Type | Department | Care Team | Description | +--------+---------+ + + + | 07/20/ | Office | [place] [facility] | Maryse Langford | Tacho (Primary Dx) | | 2019 | Visit | [facility] | DWAINE Huynh | | | | | [facility] | [address] [place] [address] | | | | | 4TH [facility], | [facility] [address] | | | | | [place] [address] | [phone] | | | | | [phone] | | | +--------+---------+ + + + [...] + + + | Blood Pressure | 134/102 | 07/20/2019 3:03 PM | | | | | PDT | | + + + + + | Pulse | 73 | 07/20/2019 3:03 PM | | | | | PDT | | + + + + + | Temperature | 36.3 C (97.4 F) | 07/20/2019 3:03 PM | | | | | PDT | | + + + + + | Respiratory Rate | 18 | 07/20/2019 3:03 PM | | | | | PDT | | + + + + + | Oxygen Saturation | 96% | 07/20/2019 3:03 PM | | | | | PDT | | + + + + + | Inhaled Oxygen | - | - | | | Concentration | | | | + + + + + | Weight | - | - | | + + + + + | Height | - | - | | + + + + + | Body Mass Index | - | - | | + + + + + documented in this encounter Patient Instructions Patient Instructions Maryse Langford, DWAINE - 07/20/2019 2:30 PM PDTThank you fo r your time today. Today I saw you for a skin problem. Cleanse to area twice daily with mild soap and water and pat dry. Apply Bactroban antibiot ic ointment and keep covered if possible Return if symptoms are worsening: increased redness, red streaking, swelling, cloudy discha rge, increased pain, or fever greater than 102. Do not pop the blister, it will pop on its own soon and then it will take a week or 2 to re solve. Expect gradual improvement in the next couple days but follow-up with your primary care if no improvement of worsening symptoms in the next week. documented in this encounter Progress Notes Maryse Langford FNP - 07/20/2019 2:30 PM PDT Patient ID: Andrea Suh is a 29 y.o. female. Chief Complaint Patient presents with Blister 1cm blister on right hip. Assessment: 1. Blister - mupirocin (BACTROBAN) 2% ointment; Apply a thin amount to affected area 2 times per day f or 10 days, reevaluate if no response Dispense: 22 g; Refill: 0 Plan: Stable. Patient presents afebrile, w/ non-ill, non-toxic appearance and well-hydrated. No s/sx of infection. Patient is very worried about infection or allergic reaction which I adv ised I did not observe at this time. I suspect this is d/t friction. - Counseled patient on home care measures: cleanse the site with warm soap and water, pat d ry, apply Bactroban antibiotic ointment and cover if possible. - Worrisome s/sx and indications for RTC discussed. - F/u w/ PCP if no improvement or worsening symptoms in the next week. Subjective: History of Present Illness: Andrea [facility] to [facility] for the following concern(s): Skin problem Onset: 1 day ago. Location: right hip. Duration: constant. Pertinent negatives: fatigue, fever, chills, anorexia, SOB, chest pain, abdominal pain, nausea, vomiting, diarrhea, tende rness, warmth, swelling, streaking or drainage. Associated symptoms: redness and blister. Treatments: none. Patient started a new antibiotic and was worried about a reaction. She denies any other sk in problems on her body. History: Active medication list and medical history reviewed with patient. Allergies: She is allergic to latex; lexapro [escitalopram]; deblitane [norethindrone]; hyd rocodone; milk; nickel; uncoded nonscreenable allergen; and adhesive & tape. Review of Systems All other systems reviewed and are negative. Objective: Vitals 07/01/2019 07/02/2019 07/05/2019 07/17/2019 07/17/2019 07/18/2019 07/20/2019 SYSTOLIC 133 130 136 142 140 134 134 DIASTOLIC 99 84 88 92 94 86 102 Pulse 107 68 80 103 93 85 73 Temp 98.1 97.8 - - - 97.8 97.4 Resp 18 18 18 18 18 16 18 Weight - - 358 lbs 386 lbs 385 lbs - - Height - - 5' 10" 5' 10" 5' 10" - - SPO2 96 99 99 99 - 99 96 BMI - - 51.5 kg/m2 55.5 kg/m2 55.4 kg/m2 - - Physical Exam Constitutional: She is oriented to person, place, and time. She appears well-developed and well-nourished. Non-toxic appearance. She does not appear ill. No distress. HENT: Mouth/Throat: Oropharynx is clear and moist and mucous membranes are normal. Neurological: She is alert and oriented to person, place, and time. Skin: Skin is warm, dry and intact. Capillary refill takes less than 2 seconds. She is not diaphoretic. No pallor. - 1 cm area of erythema w/ a 8 mm blister in the center w/o warmth, swelling, tenderness, d rainage, crusting or streaking on right lower abdomen/hip region Vitals reviewed. All plans were discussed with patient and/or family who verbalized understanding. AVS provided. P M PDTdocumented in this encounter Plan of Treatment +--------+ + + + + | Date | Type | Specialty | Care Team | Description | +--------+ + + + + | 02/18/ | Appointment | Rehabilitation | Erika Ernst, | | | 2019 | | | DO [address] | | | | | | [place] [address] | | | | | | [phone] | | | | | | | | | | | | Julia Fisher, | | | | | | PT | | +--------+ + + + + | 02/18/ | Appointment | Rehabilitation | Erika Ernst, | | | 2019 | | | DO [address] | | | | | | [place] [address] | | | | | | [phone] | | | | | | | | | | | | Genesis Ayon, OT | | +--------+ + + + + | 02/25/ | Office | Primary Care | Erika Ernst, | | | 2019 | Visit | | DO [address] | | | | | | [place] [address] | | | | | | [phone] | | | | | | | | +--------+ + + + + | 02/25/ | Appointment | Rehabilitation | Genesis Ayon OT | | | 2019 | | | | | +--------+ + + + + | 02/26/ | Virtual | Rehabilitation | Usha Rodriguez | | | 2019 | Office | | MD P[address] | | | | Visit | | [place] | | | | | | [place] [address] | | | | | | [phone] | | | | | | | | +--------+ + + + + | 02/27/ | Appointment | Radiology | Dhara, | | | 2019 | | | DWAINE Ross [address] [place], | | | | | | [place] [address] | | | | | | [phone] | | | | | | | [...] [address] | | | | | | [place] [address] | | | | | | [phone] | | | | | | | [...] [address] | | | | | [address] | | | | | | [place], [place] | | | | | | [address] | | | | | | [phone] | | | | | | | [...] | | | | | [place] [address] | | | | | | [phone] | | | | | | | | | | | | Azul Yeboah, | | | | | | [address] | | | | | | [place] | | | | | | [place] [address] | | | | | | [phone] | | | | | | | [...] | | | | | | [place] [address] | | | | | | [phone] | | | | | | | | +--------+ + + + + documented as of this encounter Visit Diagnoses + + | Diagnosis | + + | Blister - Primary Other, multiple, and unspecified sites, blister, without mention of | | infection | + + documented in this encounter
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
--- OUTSIDE RECORDS SUMMARY | ~2020-02-18 | XMS | Encounter Summary ---
Demographics + + + | Address | [address] | | | [place] [address] | + + + | Home Phone [...] + + + | Author | [facility] | | | and [place] | + + + | Organization | [facility] | | [...] Team Providers + +------+ + | Care Stave Machine Tender Name | Role | Phone | + +------+ + | Erika Ernst DO | PCP | | + +------+ + Reason for Visit +--------+ + | Reason | Comments | +--------+ + | Other | Possible Flu | +--------+ + Encounter Details +--------+---------+ + + + | Date | Type | Department | Care Team | Description | +--------+---------+ + + + | 09/29/ | Office | [place] [facility] | Nicanor Mckeon | Flu-like symptoms | | 2019 | Visit | [facility] | MD Caryn [address] | (Primary Dx) | | | | [facility] [address] | [place], [place] | | | | | [address] [facility], | [address] | | | | | [place] [address] | [phone] | | | | | [phone] | | | +--------+---------+ + + + [...] + + + | Blood Pressure | 127/79 | 09/29/2019 1:26 PM | | | | | PST | | + + + + + | Pulse | 89 | 09/29/2019 1:26 PM | | | | | PST | | + + + + + | Temperature | 36.7 C (98 F) | 09/29/2019 1:26 PM | | | | | PST | | + + + + + | Respiratory Rate | 16 | 09/29/2019 1:26 PM | | | | | PST | | + + + + + | Oxygen Saturation | 99% | 09/29/2019 1:26 PM | | | | | PST [...] + documented in this encounter Progress Notes Nicanor Mckeon MD - 09/29/2019 1:20 PM PST Subjective: Patient ID: Andrea Suh is a 29 y.o. female. HPI Past Medical History: Diagnosis Date Allergic rhinitis Anemia Asthma Dysmenorrhea Hypertension Hypothyroid Iron deficiency Obesity ALVAREZ (obstructive sleep apnea) Periodontal disease, unspecified TMJ pain dysfunction syndrome Current Outpatient Medications Medication Sig Dispense Refill albuterol 2.5 mg/3 mL nebulizer solution Inhale 1-2 treatments in nebulizer every 20 mi nutes for 3 doses, then 1-4 treatments every 1-4 hours as needed 60 vial 0 azelastine 0.1% nasal spray instill 1 to 2 spray into each nostril twice a day if neede d 1 busPIRone (BUSPAR) 7.5 MG tablet Take 7.5 mg six times a day 180 tablet 11 Cetirizine HCl (ZYRTEC PO) Take by mouth. Once a week ciprofloxacin (CIPRO) 500 mg tablet Take 1 tablet by mouth 2 times daily for 7 days. 14 tablet 0 COMBIVENT RESPIMAT 20-100 MCG/ACT inhaler inhale 1 puff INTO THE LUNGS every 4 hours if needed for shortness of breath 1 Inhaler 5 diphenhydrAMINE (BENADRYL) 25 MG capsule Take 25 mg by mouth nightly as needed for Itch ing. DULERA 200-5 MCG/ACT inhaler inhale 2 puffs by mouth twice a day 1 ferrous sulfate (TARAN-IN-HEMANTH) 15 mg/mL SOLN 3 ml liquid iron TID 150 mL 5 fexofenadine-pseudoePHEDrine (JOSÉ ANTONIO-D 24) 180-240 MG per tablet Take 1 tablet by mout h. Fluocinonide 0.1 % CREA apply A SMALL AMOUNT to affected area twice a day 0 fluticasone (FLONASE ALLERGY RELIEF) 50 mcg/nasal spray 1 spray by Nasal route Daily as needed for Allergies. Fluticasone Furoate-Vilanterol (BREO ELLIPTA IN) Inhale into the lungs. levothyroxine (SYNTHROID) 50 mcg tablet Take 50 mcg daily 30 tablet 11 MAGNESIUM CHLORIDE PO Take by mouth. meclizine (ANTIVERT) 12.5 mg tablet take 1 tablet by mouth every 6 hours if needed for dizziness 60 tablet 0 prazosin (MINIPRESS) 1 mg capsule Take BID 60 capsule 11 traMADol (ULTRAM) 50 mg tablet Take 50 mg by mouth every 6 hours as needed. UNABLE TO FIND Med Name: nell Zinc 10 MG LOZG No current facility-administered medications for this visit. Allergies Allergen Reactions Latex Rash Lexapro [Escitalopram] Palpitations Deblitane [Norethindrone] Hydrocodone Hives Milk Unknown Nickel Dermatitis, Itching and Swelling Uncoded Nonscreenable Allergen Other (See Comments) Other reaction(s): Proclivity to C-diff with certain antibiotics Adhesive & Tape Rash Patient complains of flulike symptoms. She started with symptoms about 10 days ago with so me headache congestion and some sinus pressure. The sinus pressure has progressed to some s inus pain. As well as pressure in the ears and some decreased hearing. She saw a primary p hysician 3 days ago and had a negative flu swab at that time. She is have her on Cipro for urinary tract infection. She does have a history of sinus problems but had a negative sinus CT scan a few months ago. There is some nausea but no vomiting or diarrhea. Review of Systems Objective: BP 127/79 | Pulse 89 | Temp 36.7 C (98 F) (Oral) | Resp 16 | SpO2 99% Physical Exam Constitutional: General: She is not in acute distress. Appearance: Normal appearance. She is not ill-appearing or toxic-appearing. HENT: Head: Comments: There is slight tenderness over the frontal and maxillary sinuses. Right Ear: Tympanic membrane normal. Left Ear: Tympanic membrane normal. Nose: Congestion present. Mouth/Throat: Pharynx: Posterior oropharyngeal erythema (mild) present. No oropharyngeal exudate. Cardiovascular: Rate and Rhythm: Normal rate and regular rhythm. Pulmonary: Effort: Pulmonary effort is normal. Breath sounds: Normal breath sounds. Lymphadenopathy: Cervical: No cervical adenopathy. Neurological: Mental Status: She is alert. Assessment: nd No diagnosis fou. ICD-10-CM ICD-9-CM 1. Flu-like symptoms R68.89 780.99 Plan: I suspect she probably does have the flu even though swab was negative. I do not feel furt her antibiotics are indicated for her sinuses since she is already on Cipro. Symptomatic th erapy for the flu was outlined. He is to return if her symptoms worsen. documented in thi s encounter Plan of Treatment +--------+ + + + + | Date | Type | Specialty | Care Team | Description | +--------+ + + + + | 05/20/ | Appointment | Rehabilitation | Erika Ernst, | | | 2019 | | | DO [address] | | | | | | [place] [address] | | | | | | [phone] | | | | | | | | | | | | Julia Fisher, | | | | | | PT | | +--------+ + + + + | 02/18/ | Appointment | Rehabilitation | Erika Ernst, | | | 2019 | | | DO [address] [place] | | | | | | [place] [address] | | | | | | [phone] | | | | | | | | | | | | Genesis Ayon, OT | | +--------+ + + + + | 02/25/ | Office | Primary Care | Erika Ernst, | | | 2019 | Visit | | DO [address] [place] | | | | | | [place] [address] | | | | | | [phone] | | | | | | | [...] | | | | | [place] [address] | | | | | | [phone] | | | | | | | | +--------+ + + + + | 02/27/ | Appointment | Radiology | Dhara, | | | 2019 | | | DWAINE Ross [address] | | | | | | [facility], | | | | | | [place] [address] | | | | | | [phone] | | | | | | | [...] [address] | | | | | | [place] [address] | | | | | | [phone] | | | | | | | [...] [place] | | | | | | [address] | | | | | | [phone] | | | | | | | [...] | | | | | [place] [address] | | | | | | [phone] | | | | | | | | | | | | Azul Yeboah, | | | | | | MD [address] | | | | | | [address] [place] | | | | | | [place] [address] | | | | | | [phone] | | | | | | | [...] | | | | | | [facility], | | | | | | [place] [address] | | | | | | [phone] | | | | | | | | +--------+ + + + + documented as of this encounter Visit Diagnoses + + | Diagnosis | + + | Flu-like symptoms - Primary Influenza with other respiratory manifestations | + + documented in this encounter"
--- OUTSIDE RECORDS SUMMARY | ~2020-02-18 | XMS | Encounter Summary ---
Demographics + + + | Address | [address] | | | [place] [address] | + + + | Home Phone [...] Team Providers + +------+ + | Care Garland Machine Operator Name | Role | Phone | [...] | | | [place], [place] | [address] | | | | | [address] | [phone] | | | | | [phone] | | | +--------+ + + + [...] | | | | | [place] [address] | | | | | | [phone] | | | | | | | | | | | | Julia Fisher, | | | | | | PT | | +--------+ + + + + | 02/18/ | Appointment | Rehabilitation | Erika Ernst, | | | 2019 | | | DO [address] | | | | | | [place] [address] | | | | | | [phone] | | | | | | | | | | | | Genesis Ayon, OT | | +--------+ + + + + | 02/25/ | Office | Primary Care | Erika Ernst, | | | 2019 | Visit | | DO [address] | | | | | | [place] [address] | | | | | | [phone] | | | | | | | [...] | | | | | [place] [address] | | | | | | [phone] | | | | | | | | +--------+ + + + + | 02/27/ | Appointment | Radiology | Dahra, | | | 2019 | | | [address] | | | | | | [address]TH [facility], | | | | | | [place] [address] | | | | | | [phone] | | | | | | | | +--------+ + + + + | 03/04/ | Appointment | Rehabilitation | Genesis Ayon OT | | | 2019 | | | | | +--------+ + + + + | 03/09/ | Office | Orthopedic Surgery | Jeffrey Gandhi, | | | 2019 | Visit | | [address] | | | | | | [place] [address] | | | | | | [phone] | | | | | | | [...] [place] | | | | | | [address] | | | | | | [phone] | | | | | | | [...] | | | | | [place] [address] | | | | | | [phone] | | | | | | | | | | | | Azul Yeboah, | | | | | | MD [address] | | | | | | [place] | | | | | | [place] [address] | | | | | | [phone] | | | | | | | [...] | | | | | | [place] [address] | | | | | | [phone] | | | | | | | | +--------+ + + + + documented as of this encounter Visit Diagnoses Not on filedocumented in this encounter"
--- OUTSIDE RECORDS SUMMARY | ~2020-02-18 | XMS | Encounter Summary ---
Demographics + + + | Address | [address] | | | [place] [address] | + + + | Home Phone [...] Team Providers + +------+ + | Care Fibreglass Laminator Name | Role | Phone | + +------+ + PCP | Unavailable | + +------+ + Encounter Details +--------+ + + + + | Date | Type | Department | Care Team | Description | +--------+ + + + + | 07/10/ | Hospital | [facility] [facility] | Tyrese Kee | | | 2013 | Encounter | [facility] | MD [address] | | | | | CENTER [address] | [address] | | | | | [address] [place], [place] | [place] [address] | | | | | [address] | [phone] | | | | | [phone] | | | +--------+ + + + [...] | | | | | [place] [address] | | | | | | [phone] | | | | | | | | | | | | Julia Fisher, | | | | | | PT | | +--------+ + + + + | 02/18/ | Appointment | Rehabilitation | Erika Ernst, | | | 2019 | | | DO [address] | | | | | | [place] [address] | | | | | | [phone] | | | | | | | | | | | | Genesis Ayon OT | | +--------+ + + + + | 02/25/ | Office | Primary Care | Erika Ernst, | | | 2019 | Visit | | DO [address] | | | | | | [place] [address] | | | | | | [phone] | | | | | | | [...] | | | Visit | | [address] [place] | | | | | | [place] [address] | | | | | | [phone] | | | | | | | | +--------+ + + + + | 02/27/ | Appointment | Radiology | Dhara, | | | 2019 | | | [address] | | | | | | [address] [facility], | | | | | | [place] [address] | | | | | | [phone] | | | | | | | [...] [address] | | | | | | [place] [address] | | | | | | [phone] | | | | | | | [...] [place] | | | | | | [address] | | | | | | [phone] | | | | | | | [...] | | | | | [place] [address] | | | | | | [phone] | | | | | | | | | | | | Azul Yeboah, | | | | | | MD [address] | | | | | | [place] | | | | | | [place] [address] | | | | | | [phone] | | | | | | | | +--------+ + + + + | 04/08/ | Appointment | Nutrition | Janel Webster | | | 2019 | | | [place], [place] | | +--------+ + + + + | 05/21/ | Office | Neurology | Dhara, | | | 2020 | Visit | | Cody, CNC MILL SET UP OPERATOR [address] | | | | | | [address] [facility], | | | | | | [place] [address] | | | | | | [phone] | | | | | | | | +--------+ + + + + documented as of this encounter Procedures + +--------+ + + + | Procedure Name | Priori | Date/Time | Associated Diagnosis | Comments | | | ty | | | | + +--------+ + + + | URINALYSIS WITH | STAT | 07/10/2014 | | Results for this | | MICROSCOPIC WITH | | 8:39 PM | | procedure are in the | | CULTURE IF INDICATED | | PDT | | results section. | + +--------+ + + + | CBC W/AUTO | STAT | 07/10/2014 | | Results for this | | DIFFERENTIAL | | 8:39 PM | | procedure are in the | | | | PDT | | results section. | + +--------+ + + + | LIPASE | STAT | 07/10/2014 | | Results for this | | | | 8:39 PM | | procedure are in the | | | | PDT | | results section. | + +--------+ + + + | COMPREHENSIVE | STAT | 07/10/2014 | | Results for this | | METABOLIC PANEL | | 8:39 PM | | procedure are in the | | | | PDT | | results section. | + +--------+ + + + documented in this encounter Results Urinalysis with Microscopic with Culture if Indicated (07/10/2014 8:39 PM PDT) + + + + + + | Component | Value | Ref Range | Performed | Pathologist | | | | | At | Signature | + + + + + + | Source | VOIDED | | EXTERNAL | | | | | | LAB | | + + + + + + | Clarity | HAZY | CLEAR | EXTERNAL | | | | | | LAB | | + + + + + + | Color, | YELLOW | YELLOW | EXTERNAL | | | Urine | | | LAB | | + + + + + + | Specific | 1.025 | 1.005 - 1.030 | EXTERNAL | | | [place], | | | LAB | | | Urine | | | | | + + + + + + | pH, Urine | 5 | 5.0 - 7.0 pH | EXTERNAL | | | | | | LAB | | + + + + + + | Leukocyte | 25 | NEGATIVE /uL | EXTERNAL | | | Esterase, | | | LAB | | | Urine | | | | | + + + + + + | Nitrite, | NEGATIVE | NEGATIVE | EXTERNAL | | | Urine | | | LAB | | + + + + + + | Protein, | NEGATIVE | NEGATIVE mg/dL | EXTERNAL | | | Urine | | | LAB | | + + + + + + | Glucose, | NORMAL | NORMAL mg/dL | EXTERNAL | | | Urine | | | LAB | | + + + + + + | Reducing | NOT REQUIRED | NEGATIVE | EXTERNAL | | | Substance, | | | LAB | | | UA, POC | | | | | + + + + + + | Ketones, | NEGATIVE | NEGATIVE mg/dL | EXTERNAL | | | Urine | | | LAB | | + + + + + + | Urobilinoge | NORMAL | NORMAL mg/dL | EXTERNAL | | | n, Urine | | | LAB | | + + + + + + | Bilirubin, | NEGATIVE | NEGATIVE mg/dL | EXTERNAL | | | Urine | | | LAB | | + + + + + + | Blood, | 10 | NEGATIVE /uL | EXTERNAL | | | Urine | | | LAB | | + + + + + + | White Blood | 0-2 | </= 5 /HPF | EXTERNAL | | | Cells, | | | LAB | | | Urine | | | | | + + + + + + | RBC COUNT | 0-2 | </= 5 PER HPF | EXTERNAL | | | | | | LAB | | + + + + + + | Bacteria, | RARE | NONE SEEN /HPF | EXTERNAL | | | UA | | | LAB | | + + + + + + | Culture | NO | | EXTERNAL | | | Indicated | | | LAB | | + + + + + + | Squamous | MODERATE | FEW /LPF | EXTERNAL | | | Epithelial | | | LAB | | | Cells, | | | | | | Urine | | | | | + + + + + + + + | Specimen | + + | | + + + +---------+ + + | Performing | Address | City/State/Zipcode | Phone Number | | Organization | | | | + +---------+ + + | EXTERNAL LAB | | | | + +---------+ + + Lipase (07/10/2014 8:39 PM PDT) + +-------+ + + + | Component | Value | Ref Range | Performed | Pathologist | | | | | At | Signature | + +-------+ + + + | Lipase | 166 | 73 - 393 U/L | EXTERNAL | | | | | [...] + +---------+ + + Comprehensive Metabolic Panel (07/10/2014 8:39 PM PDT) + +-------+ + + + | Component | Value | Ref Range | Performed | Pathologist | | | | | At | Signature | + +-------+ + + + | Sodium | 137 | 132 - 143 | EXTERNAL | | | | | mmol/L | LAB | | + +-------+ + + + | Potassium | 3.6 | 3.3 - 4.9 | EXTERNAL | | | | | mmol/L | LAB | | + +-------+ + + + | Cl | 106 | 95 - 108 mmol/L | EXTERNAL | | | | | | LAB | | + +-------+ + + + | CO2 | 24 | 23 - 34 mmol/L | EXTERNAL | | | | | | LAB | | + +-------+ + + + | Anion Gap | 7 | 7 - 16 | EXTERNAL | | | | | | LAB | | + +-------+ + + + | Calcium | 8.8 | 8.3 - 10.0 | EXTERNAL | | | | | mg/dL | LAB | | + +-------+ + + + | Glucose | 93 | 70 - 110 mg/dL | EXTERNAL | | | | | | LAB | | + +-------+ + + + | BUN, Bld | 13 | 5 - 26 mg/dL | EXTERNAL | | | | | | LAB | | + +-------+ + + + | Creatinine | 1 | 0.6 - 1.3 mg/dL | EXTERNAL | | | | | | LAB | | + +-------+ + + + | BUN/Creatin | 13 | 7.0 - 24.0 | EXTERNAL | | | ine Ratio | | RATIO | LAB | | + +-------+ + + + | GFR | 60 | >=60 | EXTERNAL | | | ESTIMATE | | mL/min/1.73m2 | LAB | | | (REF) | | | | | + +-------+ + + + | Bilirubin, | 0.6 | <=1.2 mg/dL | EXTERNAL | | | Total | | | LAB | | + +-------+ + + + | Protein, | 7 | 6.6 - 8.5 g/dL | EXTERNAL | | | Total | | | LAB | | + +-------+ + + + | Albumin | 3.5 | 3.0 - 4.5 g/dL | EXTERNAL | | | | | | LAB | | + +-------+ + + + | Alkaline | 115 | 33 - 151 U/L | EXTERNAL | | | Phosphatase | | | LAB | | + +-------+ + + + | ALT, | 20 | 14 - 59 U/L | EXTERNAL | | | External | | | LAB | | + +-------+ + + + | AST, | 19 | <=38 U/L | EXTERNAL | | [...] | | | + +---------+ + + CBC w/ Auto Differential (07/10/2014 8:39 PM PDT) + +-------+ + + + | Component | Value | Ref Range | Performed | Pathologist | | | | | At | Signature | + +-------+ + + + | WBC | 10.1 | 4.3 - 10.4 | EXTERNAL | | | | | 1000/mm3 | LAB | | + +-------+ + + + | RBC | 4.15 | 4.12 - 5.30 | EXTERNAL | | | | | mil/mm3 | LAB | | + +-------+ + + + | HGB, | 11.8 | 12.4 - 15.7 | EXTERNAL | | | External | | g/dL | LAB | | + +-------+ + + + | HCT, | 35.3 | 37.7 - 47.0 % | EXTERNAL | | | External | | | LAB | | + +-------+ + + + | MCV | 85 | 82 - 97 fl | EXTERNAL | | | | | | LAB | | + +-------+ + + + | MCH | 28.4 | 27.1 - 32.3 pg | EXTERNAL | | | | | | LAB | | + +-------+ + + + | MCHC | 33.4 | 32.0 - 36.9 | EXTERNAL | | | | | g/dL | LAB | | + +-------+ + + + | RDW-CV | 14.1 | <=17.0 % | EXTERNAL | | | | | | LAB | | + +-------+ + + + | RDW-SD | 43.1 | 34.0 - 57.0 fL | EXTERNAL | | | | | | LAB | | + +-------+ + + + | Platelet | 274 | 150 - 450 | EXTERNAL | | | Count | | 1000/mm3 | LAB | | | Plasma | | | | | + +-------+ + + + | MPV | 10.7 | 9.4 - 12.3 FL | EXTERNAL | | | | | | LAB | | + +-------+ + + + | % Segmented | 57.3 | 42.0 - 76.0 % | EXTERNAL | | | | | | LAB | | | Neutrophils | | | | | + +-------+ + + + | % | 34.3 | 20.0 - 40.0 % | EXTERNAL | | | Lymphocytes | | | LAB | | + +-------+ + + + | % Monocytes | 6.5 | 3.0 - 13.0 % | EXTERNAL | | | | | | LAB | | + +-------+ + + + | % | 1.6 | 0.0 - 7.0 % | EXTERNAL | | | Eosinophils | | | LAB | | + +-------+ + + + | % Basophils | 0.3 | 0.0 - 2.0 % | EXTERNAL | | | | | | LAB | | + +-------+ + + + | Absolute | 5.8 | 2.50 - 8.50 | EXTERNAL | | | Neutrophils | | 1000/mm3 | LAB | | + +-------+ + + + | Absolute | 3.47 | 1.00 - 3.80 | EXTERNAL | | | Lymphocytes | | 1000/mm3 | LAB | | + +-------+ + + + | Absolute | 0.66 | 0.00 - 0.80 | EXTERNAL | | | Monocytes | | 1000/mm3 | LAB | | + +-------+ + + + | Absolute | 0.16 | 0.00 - 0.70 | EXTERNAL | | | Eosinophils | | 1000/mm3 | LAB | | + +-------+ + + + | Absolute | 0.03 | 0.00 - 0.20 | EXTERNAL | | | Basophils | | 1000/mm3 | LAB | | + +-------+ + + + | SLIDE | NO | | EXTERNAL | | | REVIEWED | | | LAB | | + [...]
--- OUTSIDE RECORDS SUMMARY | ~2020-02-18 | XMS | Encounter Summary ---
Demographics + + + | Address | [address] | | | [place] [address] | + + + | Home Phone | | + + + | Preferred Language | Unknown | + + + | Marital Status | Single | + + + | Taoist Affiliation | Unknown | + + + [...] Team Providers + +------+ + | Care Sale Professional Digital Marketing Name | Role | Phone | + [...] | | | | Spotting | [place] [address] | [place], [place] | | | | | between | Phone: | [phone] | | | | | menses | [phone] | Phone: | | | | | | Fax: | [phone] | | | | | | [phone] | Fax: | | | | | | | [phone] | +--------+ + + + + + [...] irregular cycle | | | | [place] [address] | [address] | | | | | [phone] | [phone] | | | | | | | [...] with menses cycles. Is scheduled to see Awnings Mechanic. Patient started cycles at 12 and were [...] bearing children as she is of Ashkenazi Buddhist descent. Explained this sounds like endometriosis and [...] mouth. Once a week Cholecalciferol (VITAMIN D3) 65356 units TABS Take 1 tablet by mouth [...] facility-administered medications on file prior to visit. Apprentice Instrument Technician history: Menstrual history: Patient's last menstrual period was 05/18/2019. Control: condoms STD history: none Sexual history: Patient is sexuall active with Male. She has single partner/s. STD risk: very low risk of STD exposure. Testing desired: none ROS: General: negative Cardiovascular: no chest pain or dyspnea on exertion Respiratory: negative -Urinary: negative -Apprentice Instrument Technician: pelvic pain: moderate, abnormal bleeding. Psychiatric: negative [...] above. This documentation prepared by Dioni Amaya family practice medical doctor. All aspects of this chart revie wed [...] [address] | | | | | | [place] [address] | | | | | | [phone] | | | | | | | | | | | | Julia Fisher, | | | | | | PT | | +--------+ + + + + | 02/18/ | Appointment | Rehabilitation | Erika Ernst, | | | 2019 | | | DO [address] | | | | | | [place] [address] | | | | | | [phone] | | | | | | | | | | | | Genesis Ayon OT | | +--------+ + + + + | 02/25/ | Office | Primary Care | Erika Ernst, | | | 2019 | Visit | | DO [address] | | | | | | [place] [address] | | | | | | [phone] | | | | | | | [...] | | | | | [place] [address] | | | | | | [phone] | | | | | | | | +--------+ + + + + | 02/27/ | Appointment | Radiology | Dhara, | | | 2019 | | | DWAINE Ross [address] | | | | | | [address] [facility] [place], | | | | | | [place] [address] | | | | | | [phone] | | | | | | | | +--------+ + + + + | 03/04/ | Appointment | Rehabilitation | Genesis yAon OT | | | 2019 | | | | | +--------+ + + + + | 03/09/ | Office | Orthopedic Surgery | Jeffrey Gandhi, | | | 2019 | Visit | | [address] | | | | | | [place] [address] | | | | | | [phone] | | | | | | | [...] [place] | | | | | | [address] | | | | | | [phone] | | | | | | | [...] | | | | | [place] [address] | | | | | | [phone] | | | | | | | | | | | | Azul Yeboah, | | | | | | MD [address] | | | | | | [place] | | | | | | [place] [address] | | | | | | [phone] | | | | | | | [...] | | | | | | [place] [address] | | | | | | [phone] | | | | | | | [...]
--- OUTSIDE RECORDS SUMMARY | ~2020-02-18 | XMS | Encounter Summary ---
Demographics + + + | Address | [address] | | | [place] [address] | + + + | Home Phone | | + + + | Preferred Language | Unknown | + + + | Marital Status | Single | + + + | Worship Affiliation | Unknown | + + + | Race | Unknown | + + + | Ethnic Group | Unknown | + + + Author + + + | Author | [facility] | | | and [place] | + + + | Organization | [facility] | | | and [...] Team Providers + +------+ + | Care Jewelry Coater Name | Role | Phone | + +------+ + PCP | Unavailable | + +------+ + Encounter Details +--------+ + + + + | Date | Type | Department | Care Team | Description | +--------+ + + + + | 12/09/ | Hospital | [facility] [facility] | Travis Malone FNP | | | 2015 | Encounter | [facility] | [address] | | | | | [address] [place] | [place], [place] | | | | | [place], [place] | [address] | | | | | [address] | [phone] | | | | | [phone] | | | +--------+ + + + [...] | | | | | [place] [address] | | | | | | [phone] | | | | | | | | | | | | Julia Fisher, | | | | | | PT | | +--------+ + + + + | 02/18/ | Appointment | Rehabilitation | Erika Ernst, | | | 2019 | | | DO [address] [place] | | | | | | [place] [address] | | | | | | [phone] | | | | | | | | | | | | Genesis Ayon, OT | | +--------+ + + + + | 02/25/ | Office | Primary Care | Erika Ernst, | | | 2019 | Visit | | DO [address] | | | | | | [place] [address] | | | | | | [phone] | | | | | | | [...] | | | | | [place] [address] | | | | | | [phone] | | | | | | | | +--------+ + + + + | 02/27/ | Appointment | Radiology | Dhara, | | | 2019 | | | DWA[address] | | | | | | [address] [facility], | | | | | | [place] [address] | | | | | | [phone] | | | | | | | | +--------+ + + + + | 03/04/ | Appointment | Rehabilitation | Genesis Ayon OT | | | 2019 | | | | | +--------+ + + + + | 03/09/ | Office | Orthopedic Surgery | Jeffrey Gandhi, | | | 2019 | Visit | | [address] | | | | | | [place] [address] | | | | | | [phone] | | | | | | | [...] [place] | | | | | | [address] | | | | | | [phone] | | | | | | | [...] | | | | | [place] [address] | | | | | | [phone] | | | | | | | | | | | | Azul Yeboah, | | | | | | MD [address] | | | | | | [place] | | | | | | [place] [address] | | | | | | [phone] | | | | | | | [...] | | | | | | [place] [address] | | | | | | [phone] | | | | | | | | +--------+ + + + + documented as of this encounter Visit Diagnoses Not on filedocumented in this encounter"
--- OUTSIDE RECORDS SUMMARY | ~2020-02-18 | XMS | Encounter Summary ---
Demographics + + + | Address | [address] | | | [place] [address] | + + + | Home Phone | | + + + | Preferred Language | Unknown | + + + | Marital Status | Single | + + + | Restoration Affiliation | Unknown | + + + [...] Team Providers + +------+ + | Care Electrician Manager Name | Role | Phone | [...] cyst | | 2019 | | [facility] | DO [address] | | | | | [facility] [address] | [place] [address] | | | | | [address] [place], | [phone] | | | | | [place] [address] | | | | | | [phone] | | | +--------+ + + + [...] | 2019 | | | DO [address] | | | | | | [place] [address] | | | | | | [phone] | | | | | | | | | | | | Julia Fisher, | | | | | | PT | | +--------+ + + + + | 02/18/ | Appointment | Rehabilitation | Erika Ernst, | | | 2019 | | | DO [address] [place] | | | | | | [place] [address] | | | | | | [phone] | | | | | | | | | | | | Genesis Ayon OT | | +--------+ + + + + | 02/25/ | Office | Primary Care | Erika Ernst, | | | 2019 | Visit | | DO [address] [place] | | | | | | [place] [address] | | | | | | [phone] | | | | | | | [...] | | | | | | [place] [address] | | | | | | [phone] | | | | | | | | +--------+ + + + + | 02/27/ | Appointment | Radiology | Dhara, | | | 2019 | | | DWAINE [address] | | | | | | [address] [facility] [place], | | | | | | [place] [address] | | | | | | [phone] | | | | | | | [...] | | | | | [place] [address] | | | | | | [phone] | | | | | | | [...] [place] | | | | | | [address] | | | | | | [phone] | | | | | | | [...] | | | | | [place] [address] | | | | | | [phone] | | | | | | | | | | | | Azul Yeboah, | | | | | | MD [address] | | | | | | [place] | | | | | | [place] [address] | | | | | | [phone] | | | | | | | [...] | | | | | | [place] [address] | | | | | | [phone] | | | | | | | [...]
--- OUTSIDE RECORDS SUMMARY | ~2020-02-18 | XMS | Encounter Summary ---
Demographics + + + | Address | [address] | | | [place] [address] | + + + | Home Phone [...] + + + | Author | [facility] | | | and [place] | + + + | Organization | [facility] | | | [...] Team Providers + +------+ + | Care Cover Creaser Name | Role | Phone | + +------+ + | Erika Ernst DO | PCP | | + +------+ + Reason for Visit +--------+ + | Reason | Comments | +--------+ + | Other | Labs and Surgery | +--------+ + Encounter Details +--------+ + + + + | Date | Type | Department | Care Team | Description | +--------+ + + + + | 02/28/ | Telephone | [facility] | Inocencio Noriega | Other (Labs and | | 2018 | | [facility] | MD [address] | Surgery) | | | | [address] | [address] | | | | | [place], [place] | [place] [address] | | | | | [address] | [phone] | | | | | [phone] | | | +--------+ + + + [...] | | | | | [place] [address] | | | | | | [phone] | | | | | | | | | | | | Julia Fisher, | | | | | | PT | | +--------+ + + + + | 02/18/ | Appointment | Rehabilitation | Erika Ernst, | | | 2019 | | | DO [address] [place] | | | | | | [place] [address] | | | | | | [phone] | | | | | | | | | | | | Genesis Ayon OT | | +--------+ + + + + | 02/25/ | Office | Primary Care | Erika Ernst, | | | 2019 | Visit | | DO [address] [place] | | | | | | [place] [address] | | | | | | [phone] | | | | | | | [...] | | | | | [place] [address] | | | | | | [phone] | | | | | | | | +--------+ + + + + | 02/27/ | Appointment | Radiology | Dhara, | | | 2019 | | | [address] | | | | | | [facility] | | | | | | [place] [address] | | | | | | [phone] | | | | | | | [...] [address] | | | | | | [place] [address] | | | | | | [phone] | | | | | | | [...] [place] | | | | | | [address] | | | | | | [phone] | | | | | | | [...] | | | | | [place] [address] | | | | | | [phone] | | | | | | | | | | | | Azul Yeboah, | | | | | | MD [address] | | | | | | [place] | | | | | | [place] [address] | | | | | | [phone] | | | | | | | [...] | | | | | | [place] [address] | | | | | | [phone] | | | | | | | | +--------+ + + + + documented as of this encounter Visit Diagnoses Not on filedocumented in this encounter"
--- OUTSIDE RECORDS SUMMARY | ~2020-02-18 | XMS | Encounter Summary ---
Demographics + + + | Address | [address] | | | [place] [address] | + + + | Home Phone | | + + + | Preferred Language | Unknown | + + + | Marital Status | Single | + + + | Zoroastrian Affiliation | Unknown | + + + [...] Team Providers + +------+ + | Care Stain Sprayer Name | Role | Phone | + [...] Description | +--------+--------+ + + + | 11/20/ | Refill | [place] [facility] | Haseeb Mcguire RN | Medication Refill | | 2019 | | [facility] | | | | | | [facility] [address] | | | | | | [address] [facility] [place], | | | | | | [place] [address] | | | | | | [phone] | | | +--------+--------+ + + + [...] | | | | | [place], [place] [address] | | | | | | [phone] | | | | | | | | | | | | Julia Fisher, | | | | | | PT | | +--------+ + + + + | 02/18/ | Appointment | Rehabilitation | Erika Ernst, | | | 2019 | | | DO [address] | | | | | | [place] [address] | | | | | | [phone] | | | | | | | | | | | | [facility] | | +--------+ + + + + | 02/25/ | Office | Primary Care | Erika Ernst, | | | 2019 | Visit | | DO [address] | | | | | | [place] [address] | | | | | | [phone] | | | | | | | [...] | | | | | [place] [address] | | | | | | [phone] | | | | | | | | +--------+ + + + + | 02/27/ | Appointment | Radiology | Dhara, | | | 2019 | | | DWAINE Ross [address] | | | | | | [address] [facility], | | | | | | [place] [address] | | | | | | [phone] | | | | | | | | +--------+ + + + + | 03/04/ | Appointment | Rehabilitation | [facility] OT | | | 2019 | | | | | +--------+ + + + + | 03/09/ | Office | Orthopedic Surgery | Jeffrey Gandhi, | | | 2019 | Visit | | MD [address] [facility] | | | | | | [place] [address] | | | | | | [phone] | | | | | | | [...] [place] | | | | | | [address] | | | | | | [phone] | | | | | | | [...] | | | | | [place] [address] | | | | | | [phone] | | | | | | | | | | | | Azul Yeboah, | | | | | | MD [address] | | | | | | [address] [place] | | | | | | [place] [address] | | | | | | [phone] | | | | | | | [...] | | | | | | [place] [address] | | | | | | [phone] | | | | | | | | +--------+ + + + + documented as of this encounter Visit Diagnoses Not on filedocumented in this encounter"
--- OUTSIDE RECORDS SUMMARY | ~2020-02-18 | XMS | Encounter Summary ---
Demographics + + + | Address | [address] | | | [place] [address] | + + + | Home Phone | | + + + | Preferred Language | Unknown | + + + | Marital Status | Single | + + + | Episcopalian Affiliation | Unknown | + + + | Race | Unknown | + + + | Ethnic Group | Unknown | + + + Author + + + | Author | [facility] | | | and [place] | + + + | Organization | [facility] | | [...] Team Providers + +------+ + | Care Fuel Cell Test Engineer Name | Role | Phone | + +------+ + | Erika Ernst DO | PCP | | + +------+ + Encounter Details +--------+ + + + + | Date | Type | Department | Care Team | Description | +--------+ + + + + | 02/28/ | Orders Only | [facility] [facility] | Erika Ernst, | Vitamin D deficiency | | 2019 | | [facility] | DO [address] [place] | (Primary Dx) | | | | [facility] | [place] [address] | | | | [address] [place], | [phone] | | | | | [place] [address] | | | | | | [phone] | | | +--------+ + + + [...] | | | | | [place] [address] | | | | | | [phone] | | | | | | | | | | | | Julia Fisher, | | | | | | PT | | +--------+ + + + + | 02/18/ | Appointment | Rehabilitation | Erika Ernst, | | | 2019 | | | DO [address] [place] | | | | | | [place] [address] | | | | | | [phone] | | | | | | | | | | | | Genesis Ayon OT | | +--------+ + + + + | 02/25/ | Office | Primary Care | Erika Ernst, | | | 2019 | Visit | | DO [address] [place] | | | | | | [place] [address] | | | | | | [phone] | | | | | | | [...] | | | | | [place] [address] | | | | | | [phone] | | | | | | | | +--------+ + + + + | 02/27/ | Appointment | Radiology | Dhara, | | | 2019 | | | [address] | | | | | | 4TH [facility], | | | | | | [place] [address] | | | | | | [phone] | | | | | | | [...] | | | | | [place] [address] | | | | | | [phone] | | | | | | | [...] [place] | | | | | | [address] | | | | | | [phone] | | | | | | | [...] | | | | | [place] [address] | | | | | | [phone] | | | | | | | | | | | | Azul Yeboah, | | | | | | MD [address] | | | | | | [place] | | | | | | [place] [address] | | | | | | [phone] | | | | | | | [...] | | | | | | [place] [address] | | | | | | [phone] | | | | | | | | +--------+ + + + + documented as of this encounter Visit Diagnoses + + | Diagnosis | + + | Vitamin D deficiency - Primary Unspecified vitamin D deficiency | + + documented in this encounter"
--- OUTSIDE RECORDS SUMMARY | ~2020-02-18 | XMS | Encounter Summary ---
Demographics + + + | Address | [address] | | | [place] [address] | + + + | Home Phone [...] Team Providers + +------+ + | Care Boiler Fireman Name | Role | Phone | + [...] + + + + | 06/06/ | Telephone | [facility] [facility] | Travis Malone, DWAINE | Other | | 2019 | | [facility] | [address] [place] | | | | | [address] [place] | [place], [place] | | | | | [place], [place] | [address] | | | | | [address] | [phone] | | | | | [phone] | | | +--------+ + + + [...] | | | | | [place] [address] | | | | | | [phone] | | | | | | | | | | | | Julia Fisher, | | | | | | PT | | +--------+ + + + + | 02/18/ | Appointment | Rehabilitation | Erika Ernst, | | | 2019 | | | DO [address] [place] | | | | | | [place] [address] | | | | | | [phone] | | | | | | | | | | | | Genesis Ayon OT | | +--------+ + + + + | 02/25/ | Office | Primary Care | Erika Enrst, | | | 2019 | Visit | | DO [address] [place] | | | | | | [place] [address] | | | | | | [phone] | | | | | | | [...] | | | | | [place] [address] | | | | | | [phone] | | | | | | | | +--------+ + + + + | 02/27/ | Appointment | Radiology | Dhara, | | | 2019 | | | [address] | | | | | | 4TH [facility], | | | | | | [place] [address] | | | | | | [phone] | | | | | | | | +--------+ + + + + | 03/04/ | Appointment | Rehabilitation | Genesis Ayon OT | | | 2019 | | | | | +--------+ + + + + | 03/09/ | Office | Orthopedic Surgery | Jeffrey Gandhi, | | | 2019 | Visit | | [address] | | | | | | [place] [address] | | | | | | [phone] | | | | | | | [...] [place] | | | | | | [address] | | | | | | [phone] | | | | | | | [...] | | | | | [place] [address] | | | | | | [phone] | | | | | | | | | | | | Azul Yeboah, | | | | | | MD [address] | | | | | | [place] | | | | | | [place] [address] | | | | | | [phone] | | | | | | | [...] | | | | | | [place] [address] | | | | | | [phone] | | | | | | | | +--------+ + + + + documented as of this encounter Visit Diagnoses Not on filedocumented in this encounter"
--- OUTSIDE RECORDS SUMMARY | ~2020-02-18 | XMS | Encounter Summary ---
Demographics + + + | Address | [address] | | | [place] [address] | + + + | Home Phone [...] Team Providers + +------+ + | Care Varnisher Plasticoater Name | Role | Phone | + [...] [address] | | | | | [place] [address] | | | | | | [phone] | | | +--------+ + + + [...] | | | | | [place] [address] | | | | | | [phone] | | | | | | | | | | | | Julia Fisher, | | | | | | PT | | +--------+ + + + + | 02/18/ | Appointment | Rehabilitation | Erika Ernst, | | | 2019 | | | DO [address] [place] | | | | | | [place] [address] | | | | | | [phone] | | | | | | | | | | | | Genesis Ayon, OT | | +--------+ + + + + | 02/25/ | Office | Primary Care | Erika Ernst, | | | 2019 | Visit | | DO [address] [place] | | | | | | [place] [address] | | | | | | [phone] | | | | | | | [...] | | | | | [place] [address] | | | | | | [phone] | | | | | | | | +--------+ + + + + | 02/27/ | Appointment | Radiology | Dhara, | | | 2019 | | | [address] | | | | | | 4TH [facility], | | | | | | [place] [address] | | | | | | [phone] | | | | | | | | +--------+ + + + + | 03/04/ | Appointment | Rehabilitation | Genesis Ayon OT | | | 2019 | | | | | +--------+ + + + + | 03/09/ | Office | Orthopedic Surgery | Jeffrey Gandhi, | | | 2019 | Visit | | [address] [facility] | | | | | | [place] [address] | | | | | | [phone] | | | | | | | [...] [place] | | | | | | [address] | | | | | | [phone] | | | | | | | [...] | | | | | [place] [address] | | | | | | [phone] | | | | | | | | | | | | Azul Yeboah, | | | | | | MD [address] | | | | | | [place] | | | | | | [place] [address] | | | | | | [phone] | | | | | | | [...] | | | | | | [place] [address] | | | | | | [phone] | | | | | | | | +--------+ + + + + documented as of this encounter Visit Diagnoses Not on filedocumented in this encounter"
--- OUTSIDE RECORDS SUMMARY | ~2020-02-18 | XMS | Encounter Summary ---
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 | | | [...] | : 1990 | Medical Record Number:[id number] | Author: Emily Mittal DPM | Date [...] BID 60 tablet 3 Cholecalciferol (VITAMIN D3) 54662 units TABS Take 1 tablet by mouth [...] PROCEDURE 01/20/2016 Surgeon: Fani Mahajan MD; Location: [facility] TENDON RELEASE TONSILLECTOMY WISDOM TOOTH EXTRACTION Family History Problem Relation Age of Onset Other (see comment) Mother gallbladder disease Hypertension Father Other (see comment) Father arrhymthmia Breast cancer Sister Cervical cancer Maternal Grandmother Heart attack Maternal Aunt MS Social History Social History Marital status: Single [...] and their vital signs recorded by my railway yard assistant today, leslie alvarez found in this chart note. Electronically signed by: Emily Mittal DPM 12/06/2018 at 14:59 Note: Part of this report was transcribed using voice recognition software. Every effort wa s made to ensure accuracy. However, inadvertent computerized chemical maker errors may be pre sent. CC: Erika [...] | | 2019 | | | DO [facility] | | | | | | [facility] [place] [address] | | | | | | [phone] | | | | | | | | | | | | Julia Fisher, | | | | | | PT | | +--------+ + + + + | 02/18/ | Appointment | Rehabilitation | Erika Ernst, | | | 2019 | | | DO [address] [place] | | | | | | [place] [address] | | | | | | [phone] | | | | | | | | | | | | Genesis Ayon, SUSAN | | +--------+ + + + + | 02/25/ | Office | Primary Care | Erika Ernst, | | | 2019 | Visit | | DO [address] [place] | | | | | | [place] [address] | | | | | | [phone] | | | | | | | [...] | | | | | [place] [address] | | | | | | [phone] | | | | | | | | +--------+ + + + + | 02/27/ | Appointment | Radiology | Dhara, | | | 2019 | | | [address] | | | | | | [address] [place], | | | | | | [place] [address] | | | | | | [phone] | | | | | | | [...] | | | | | [place] [address] | | | | | | [phone] | | | | | | | [...] [place] | | | | | | [address] | | | | | | [phone] | | | | | | | [...] | | | | | [place] [address] | | | | | | [phone] | | | | | | | | | | | | Azul Yeboah, | | | | | | MD [address] | | | | | | [place] | | | | | | [place] [address] | | | | | | [phone] | | | | | | | [...] | | | | | | [place] [address] | | | | | | [phone] | | | | | | | [...] IMAGING | | COMPARISON STUDY: None FINDINGS: Arapahoe angle 46 degrees. | | | Talocalcaneal [...] LEFT 3 + | | VWHISTORY:pes planusCOMPARISON STUDY:NoneFINDINGS:Arapahoe angle 46 degrees.Talocalcaneal | | angle 25 [...] | |None | | | |FINDINGS: | |Arapahoe angle 46 degrees. | | | |Talocalcaneal [...] | | + +---------+ + + XR Ankle Candie 3 + Vw (12/06/2018 2:43 PM PST) [...]
--- OUTSIDE RECORDS SUMMARY | ~2020-02-18 | XMS | Encounter Summary ---
Demographics + + + | Address | [address] | | | [place] [address] | + + + | Home Phone [...] Team Providers + +------+ + | Care Vending Machine Coin Collector Name | Role | Phone | + +------+ + PCP | Unavailable | + +------+ + Encounter Details +--------+ + + + + | Date | Type | Department | Care Team | Description | +--------+ + + + + | 10/12/ | [facility] | Erika Ernst, | | | 2016 | Encounter | [facility] | DO [address] | | | | | [address] [place] | [place] [address] | | | | | [place], [place] | [phone] | | | | | [address] | | | | | | [phone] | | | +--------+ + + + [...] | | | | | [place] [address] | | | | | | [phone] | | | | | | | | | | | | Julia Fisher, | | | | | | PT | | +--------+ + + + + | 02/18/ | Appointment | Rehabilitation | Erika Ernst, | | | 2019 | | | DO [address] [place] | | | | | | [place] [address] | | | | | | [phone] | | | | | | | | | | | | Genesis Ayon OT | | +--------+ + + + + | 02/25/ | Office | Primary Care | Erika Ernst, | | | 2019 | Visit | | DO [address] [place] | | | | | | [place] [address] | | | | | | [phone] | | | | | | | [...] | | | | | | [place] [address] | | | | | | [phone] | | | | | | | | +--------+ + + + + | 02/27/ | Appointment | Radiology | Dhara, | | | 2019 | | | [address] | | | | | | 4TH [facility], | | | | | | [place] [address] | | | | | | [phone] | | | | | | | | +--------+ + + + + | 03/04/ | Appointment | Rehabilitation | Genesis Ayon OT | | | 2019 | | | | | +--------+ + + + + | 03/09/ | Office | Orthopedic Surgery | Jeffrey Gandhi, | | | 2019 | Visit | | [address] | | | | | | [place] [address] | | | | | | [phone] | | | | | | | [...] [place] | | | | | | [address] | | | | | | [phone] | | | | | | | [...] | | | | | [place] [address] | | | | | | [phone] | | | | | | | | | | | | Azul Yeboah, | | | | | | MD [address] | | | | | | [place] | | | | | | [place] [address] | | | | | | [phone] | | | | | | | [...] | | | | | | [place] [address] | | | | | | [phone] | | | | | | | | +--------+ + + + + documented as of this encounter Procedures + +--------+ + + + | Procedure Name | Priori | Date/Time | Associated Diagnosis | Comments | | | ty | | | | + +--------+ + + + | CBC W/AUTO | Routin | 10/12/2016 | | Results for this | | DIFFERENTIAL | e | 8:44 AM | | procedure are in the | | | | PST | | results section. | + +--------+ + + + | TSH | Routin | 10/12/2016 | | Results for this | | | e | 8:44 AM | | procedure are in the | | | | PST | | results section. | + +--------+ + + + documented in this encounter Results TSH (10/12/2016 8:44 AM PST) + +-------+ + + + | Component | Value | Ref Range | Performed | Pathologist | | | | | At | Signature | + +-------+ + + + | TSH | 4.05 | 0.36 - 3.74 | EXTERNAL | | | | | mIU/L | LAB | | + +-------+ + + + + + | Specimen | + + | | + + + +---------+ + + | Performing | Address | City/State/Zipcode | Phone Number | | Organization | | | | + +---------+ + + | EXTERNAL LAB | | | | + +---------+ + + CBC w/ Auto Differential (10/12/2016 8:44 AM PST) + +-------+ + + + | Component | Value | Ref Range | Performed | Pathologist | | | | | At | Signature | + +-------+ + + + | WBC | 8.4 | 4.3 - 10.4 | EXTERNAL | | | | | 1000/mm3 | LAB | | + +-------+ + + + | RBC | 4.28 | 4.12 - 5.30 | EXTERNAL | | | | | mil/mm3 | LAB | | + +-------+ + + + | HGB, | 11.9 | 12.4 - 15.7 | EXTERNAL | | | External | | g/dL | LAB | | + +-------+ + + + | HCT, | 35.5 | 37.7 - 47.0 % | EXTERNAL | | | External | | | LAB | | + +-------+ + + + | MCV | 83 | 82 - 97 fl | EXTERNAL | | | | | | LAB | | + +-------+ + + + | MCH | 27.8 | 27.1 - 32.3 pg | EXTERNAL | | | | | | LAB | | + +-------+ + + + | MCHC | 33.5 | 32.0 - 36.9 | EXTERNAL | | | | | g/dL | LAB | | + +-------+ + + + | RDW-CV | 13.7 | <=17.0 % | EXTERNAL | | | | | | LAB | | + +-------+ + + + | Platelet | 328 | 150 - 450 | EXTERNAL | | | Count | | 1000/mm3 | LAB | | | Plasma | | | | | + +-------+ + + + | MPV | 9.8 | 9.4 - 12.3 FL | EXTERNAL | | | | | | LAB | | + +-------+ + + + | % Segmented | 52.7 | 42.0 - 76.0 % | EXTERNAL | | | | | | LAB | | | Neutrophils | | | | | + +-------+ + + + | LYMPH % | 38.7 | 20.0 - 40.0 % | EXTERNAL | | | | | | LAB | | + +-------+ + + + | % Monocytes | 8.6 | <=12.0 % | EXTERNAL | | | | | | LAB | | + +-------+ + + + | Absolute | 4.4 | 2.50 - 8.50 | EXTERNAL | | | Neutrophils | | 1000/mm3 | LAB | | + +-------+ + + + | Absolute | 3.3 | 1.00 - 3.80 | EXTERNAL | | | Lymphocytes | | 1000/mm3 | LAB | | + +-------+ + + + | Absolute | 0.7 | <=1.25 1000/mm3 | EXTERNAL | | | Monocytes | | | LAB | | + +-------+ + + + | SLIDE | NO | | EXTERNAL | | | REVIEW | | | LAB | | + [...]
--- OUTSIDE RECORDS SUMMARY | ~2020-02-18 | XMS | Encounter Summary ---
Demographics + + + | Address | [address] | | | [place] [address] | + + + | Home Phone [...] Team Providers + +------+ + | Care User Experience Manager Name | Role | Phone | + +------+ + PCP | Unavailable | + +------+ + Encounter Details +--------+ + + + + | Date | Type | Department | Care Team | Description | +--------+ + + + + | 09/09/ | [facility] | Sahil, | | | 2013 | Encounter | HOSPITAL RES[facility]ATORY | Eloina Du MD | | | | | THERAPY [address] | [address] | | | | | [address] [place] | [place] | | | | | [address] | [address] | | | | | [phone] | [phone] | | | | | | | [...] | | | | | [place] [address] | | | | | | [phone] | | | | | | | | | | | | Julia Fisher, | | | | | | PT | | +--------+ + + + + | 02/18/ | Appointment | Rehabilitation | Erika Ernst, | | | 2019 | | | DO [address] [place] | | | | | | [place] [address] | | | | | | [phone] | | | | | | | | | | | | Genesis Ayon, OT | | +--------+ + + + + | 02/25/ | Office | Primary Care | Erika Ernst, | | | 2019 | Visit | | DO [address] [place] | | | | | | [place] [address] | | | | | | [phone] | | | | | | | [...] | | | | | [place] [address] | | | | | | [phone] | | | | | | | | +--------+ + + + + | 02/27/ | Appointment | Radiology | Dhara, | | | 2019 | | | [address] | | | | | | [address]TH [facility], | | | | | | [place] [address] | | | | | | [phone] | | | | | | | | +--------+ + + + + | 03/04/ | Appointment | Rehabilitation | Genesis Ayon OT | | | 2019 | | | | | +--------+ + + + + | 03/09/ | Office | Orthopedic Surgery | Jeffrey Gandhi, | | | 2019 | Visit | | [address] | | | | | | [place] [address] | | | | | | [phone] | | | | | | | [...] [place] | | | | | | [address] | | | | | | [phone] | | | | | | | [...] | | | | | [place] [address] | | | | | | [phone] | | | | | | | | | | | | Azul Yeboah, | | | | | | MD [address] | | | | | | [place] | | | | | | [place] [address] | | | | | | [phone] | | | | | | | [...] | | | | | | [place] [address] | | | | | | [phone] | | | | | | | | +--------+ + + + + documented as of this encounter Visit Diagnoses Not on filedocumented in this encounter"
--- OUTSIDE RECORDS SUMMARY | ~2020-02-18 | XMS | Encounter Summary ---
Demographics + + + | Address | [address] | | | [place] [address] | + + + | Home Phone | | + + + | Preferred Language | Unknown | + + + | Marital Status | Single | + + + | Restorationist Affiliation | Unknown | + + + | Race | Unknown | + + + | Ethnic Group | Unknown | + + + Author + + + | Author | [facility] | | | and [place] | + + + | Organization | [facility] | | | [...] Team Providers + +------+ + | Care Tool Smith Name | Role | Phone | + +------+ + | Erika Ernst DO | PCP | | + +------+ + Encounter Details +--------+ + + + + | Date | Type | Department | Care Team | Description | +--------+ + + + + | 06/28/ | Hospital | [place] [facility] | Erika Ernst, | Hypothyroidism, | | 2019 | Encounter | Hospital Ultrasound | DO [address] [place] | unspecified type | | | | [address] [place] | [place] [address] | | | | | [place], [place] | [phone] | | | | | [address] | | | | | | [phone] | | | +--------+ + + + [...] 60 vial | 0 | 04/21/20 | 11/12/201 | | mL nebulizer | treatments in [...] +---------+ + + | azithromycin | Take 2 tablets by | 6 | 0 | 06/11/20 | | | (ZITHROMAX) 250 mg | mouth on day 1, and | tablet | | 19 | 9 | | tablet | 1 tablet by mouth | | | | | | | every day | | | | | + [...] | 04/12/20 | | | (VITAMIN D3) 08755 | mouth Once a week | tablet [...] sulfate | Take 1 tablet by | 90 | 11 | 06/18/20 | | | 325 mg tablet | mouth 3 times daily | tablet | | 19 | 9 | | | (with meals). | | | | | + + [...] | 30 | 11 | 08/07/20 | 11/06/201 | | (SINGULAIR) 10 mg | mouth [...] | | | | | [place] [address] | | | | | | [phone] | | | | | | | | | | | | Julia Fisher, | | | | | | PT | | +--------+ + + + + | 02/18/ | Appointment | Rehabilitation | Erika Ernst, | | | 2019 | | | DO [address] [place] | | | | | | [place] [address] | | | | | | [phone] | | | | | | | | | | | | Genesis Ayon OT | | +--------+ + + + + | 02/25/ | Office | Primary Care | Erika Ernst, | | | 2019 | Visit | | DO [address] [place] | | | | | | [place] [address] | | | | | | [phone] | | | | | | | [...] | | | | | | [place] [address] | | | | | | [phone] | | | | | | | | +--------+ + + + + | 02/27/ | Appointment | Radiology | Dhara, | | | 2019 | | | [address] | | | | | | [address] [facility], | | | | | | [place] [address] | | | | | | [phone] | | | | | | | | +--------+ + + + + | 03/04/ | Appointment | Rehabilitation | Genesis Ayon OT | | | 2019 | | | | | +--------+ + + + + | 03/09/ | Office | Orthopedic Surgery | Jeffrey Gandhi, | | | 2019 | Visit | | [address] [facility] | | | | | | [place] [address] | | | | | | [phone] | | | | | | | [...] [place] | | | | | | [address] | | | | | | [phone] | | | | | | | [...] | | | | | [place] [address] | | | | | | [phone] | | | | | | | | | | | | Azul Yeboah, | | | | | | MD [address] | | | | | | [place] | | | | | | [place] [address] | | | | | | [phone] | | | | | | | [...] | | | | | | [place] [address] | | | | | | [phone] | | | | | | | | +--------+ + + + + documented as of this encounter Procedures + +--------+ + + + | Procedure Name | Priori | Date/Time | Associated Diagnosis | Comments | | | ty | | | | + +--------+ + + + | US THYROID | Routin | 06/28/2019 | Hypothyroidism, | Results for this | | | e | 9:55 AM | unspecified type | procedure are in the | | | | PDT | | results section. | + +--------+ + + + documented in this encounter Results US Thyroid (06/28/2019 9:55 AM PDT) + + | Specimen | + + | | + + + + + | Impressions | Performed At | + + + | IMPRESSION: Cystic/solid left thyroid nodule for which 1 year | [facility] | | follow-up thyroid ultrasound recommended. Dictated by: Chris | | Tank Bedolla | | | AM | | + + + + + + | Narrative | Performed At | + + + | EXAMINATION: US THYROID HISTORY: painful thyroid gland on exam | [facility] | | and new DX hypothyroidism COMPARISON STUDY: None FINDINGS: | | | Right thyroid:Length is 4.6 cm. Echogenicity appears within normal | | | limits. Doppler flow appears within normal limits. No cervical | | | adenopathy. Upper:No nodule Mid:No nodule Lower:No nodule | | | Isthmus:No nodule Left thyroid:Length is 4.9 cm. Thyroid | | | echogenicity, and Doppler flow appear within normal limits. No | | | cervical adenopathy. Upper:No nodule Mid:Hypoechoic wider than | | | tall partially circumscribed 0.3 x 0.5 cm lesion. | | | Lower:Cystic/solid ovoid wider than tall partially circumscribed 0.8 x | | | 1.1 cm nodule. Doppler flow noted within portion of the nodule. | | + + + + + | Procedure Note | + + | Mitchel, Rad Results In - 06/28/2019 10:57 AM PDT EXAMINATION:US THYROIDHISTORY:painful | | thyroid gland on exam and new DX hypothyroidismCOMPARISON STUDY:NoneFINDINGS:Right | | thyroid:Length is 4.6 cm. Echogenicity appears within normal limits. Doppler flow | | appears within normal limits. No cervical adenopathy.Upper:No noduleMid:No | | noduleLower:No noduleIsthmus:No noduleLeft thyroid:Length is 4.9 cm. Thyroid | | echogenicity, and Doppler flow appear within normal limits. No cervical | | adenopathy.Upper:No noduleMid:Hypoechoic wider than tall partially circumscribed 0.3 x | | 0.5 cm lesion.Lower:Cystic/solid ovoid wider than tall partially circumscribed 0.8 x 1.1 | | cm nodule. Doppler flow noted within portion of the nodule.IMPRESSION: | | IMPRESSION:Cystic/solid left thyroid nodule for which 1 year follow-up thyroid | | ultrasound recommended.Dictated by: Chris Bedolla | |Upper:No nodule | | | |Mid:No nodule | | | |Lower:No nodule | | | |Isthmus:No nodule | | | |Left thyroid:Length is 4.9 cm. Thyroid echogenicity, and Doppler flow appear within normal limits. No cervical adenopathy. | | | |Upper:No nodule | | | |Mid:Hypoechoic wider than tall partially circumscribed 0.3 x 0.5 cm lesion. | | | |Lower:Cystic/solid ovoid wider than tall partially circumscribed 0.8 x 1.1 cm nodule. Doppl er flow noted within portion of the nodule. | | | |IMPRESSION: | |IMPRESSION: | |Cystic/solid left thyroid nodule for which 1 year follow-up thyroid ultrasound recommended. | | | |Dictated by: Chris Bedolla | | | | | + + + +---------+ + + | Performing | Address | City/State/Zipcode | Phone Number | | Organization | | | | + +---------+ + + | [facility] | | | | + +---------+ + + documented in this encounter Visit Diagnoses + + | Diagnosis | + + | Hypothyroidism, unspecified type | + + documented in this encounter"
--- OUTSIDE RECORDS SUMMARY | ~2020-02-18 | XMS | Encounter Summary ---
Demographics + + + | Address | [address] | | | [place] [address] | + + + | Home Phone | | + + + | Preferred Language | Unknown | + + + | Marital Status | Single | + + + | Mu-Ism Affiliation | Unknown | + + + | Race | Unknown | + + + | Ethnic Group | Unknown | + + + Author + + + | Author | [facility] | | | and [place] | + + + | Organization | [facility] | | [...] Team Providers + +------+ + | Care Press Hand Name | Role | Phone | + +------+ + | Erika Ernst DO | PCP | | + +------+ + Encounter Details +--------+ + + + + | Date | Type | Department | Care Team | Description | +--------+ + + + + | 09/26/ | Orders Only | [facility] [facility] | Veronica Huerta, | | | 2018 | | [facility] | GEOSPATIAL ENGINEER | | | | | [facility] [address] | | | | | | [address] [facility], | | | | | | [place] [address] | | | | | | [phone] | | | +--------+ + + + [...] | | | | | [place] [address] | | | | | | [phone] | | | | | | | | | | | | Julia Fisher, | | | | | | PT | | +--------+ + + + + | 02/18/ | Appointment | Rehabilitation | Erika Ernst, | | | 2019 | | | DO [address] | | | | | | [place] [address] | | | | | | [phone] | | | | | | | | | | | | Genesis Ayon OT | | +--------+ + + + + | 02/25/ | Office | Primary Care | Erika Ernst, | | | 2019 | Visit | | [address] [place] [address] | | | | | | [place] [address] | | | | | | [phone] | | | | | | | [...] | | | | | [place] [address] | | | | | | [phone] | | | | | | | | +--------+ + + + + | 02/27/ | Appointment | Radiology | Dhara, | | | 2019 | | | [address] | | | | | [address] [place], | | | | | | [place] [address] | | | | | | [phone] | | | | | | | | +--------+ + + + + | 03/04/ | Appointment | Rehabilitation | Genesis Ayon OT | | 2019 | | | | | +--------+ + + + + | 03/09/ | Office | Orthopedic Surgery | Jeffrey Gandhi, | | | 2019 | Visit | | [place] [address] [facility] | | | | | | [place] [address] | | | | | | [phone] | | | | | | | [...] [place] | | | | | | [address] | | | | | | [phone] | | | | | | | [...] | | | | | [place] [address] | | | | | | [phone] | | | | | | | | | | | | Azul Yeboah, | | | | | | [address] | | | | | | [place] | | | | | | [place] [address] | | | | | | [phone] | | | | | | | [...] | | | | | | [place] [address] | | | | | | [phone] | | | | | | | | +--------+ + + + + documented as of this encounter Visit Diagnoses Not on filedocumented in this encounter"
--- OUTSIDE RECORDS SUMMARY | ~2020-02-18 | XMS | Encounter Summary ---
Demographics + + + | Address | [address] | | | [place] [address] | + + + | Home Phone [...] Team Providers + +------+ + | Care Brusher And Shearer Name | Role | Phone | + +------+ + | Erika Ernst DO | PCP | | + +------+ + Reason for Visit + + + | Reason | Comments | + + + | ER Follow-up | ankle injury | + + + Encounter Details +--------+---------+ + + + | Date | Type | Department | Care Team | Description | +--------+---------+ + + + | 05/17/ | Office | [facility] | Erika Ernst, | | | 2018 | Visit | [facility] | DO [address] | encounter (Primary | | | | [facility] [address] | [place] [address] | Dx); Right hand | | | | [address] [place], | [phone] | pain; Foot pain, | | | | [place] [address] | | left; Tongue sore; | | | | [phone] | | Anemia, unspecified | | | | | | type; Anxiety | +--------+---------+ + + + Social [...] + + + | Blood Pressure | 130/78 | 05/17/2019 4:19 PM | | | | | PDT | | + + + + + | Pulse | 95 | 05/17/2019 4:19 PM | | | | | PDT | | + + + + + | Temperature | - | - | | + + + + + | Respiratory Rate | 18 | 05/17/2019 4:19 PM | | | | | PDT | | + + + + + | Oxygen Saturation | 100% | 05/17/2019 4:19 PM | | | | | PDT | | + + + + + | Inhaled Oxygen | - | - | | | Concentration | | | | + + + + + | Weight | 164.2 kg (362 lb) | 05/17/2019 4:19 PM | | | | | PDT | | + + + + + | Height | 177.8 cm (5' 9.99") | 05/17/2019 4:19 PM | | | | | PDT | | + + + + + | Body Mass Index | 51.95 | 05/17/2019 4:19 PM | | | | | PDT | | + + + + + documented in this encounter Progress Erika Cespedes DO - 05/17/2019 4:30 PM PDTFormatting of this note might be different fro m the original. Subjective: Patient ID: Andrea Suh is a 29 y.o. female. She had a fall when she tripped on [facility] [place] [facility] on 05[place]10 and went to ER. Xrays left ankl e and right wrist were negative. She had recent surgery on the right wrist tendon and will b e seeing hand surgeon for FU next week. She is still having a lot of pain on the top of the left foot so we will get a xray of that area. Area is bruised and with swelling still. VS NL . She has complaint today of sore tongue and even had it bleed she states. Mouth is dry with decongestants and inhaler use. Non-smoker. She is still following with Emeka Gillis for mental health and is taking buspar for anxiety but therapist thought she may need more sinc e deaths in family and more continued health issues of her own. She is very sensitive to med s, allergy to SSRI's. Addiction and depression family history. We discussed wellbutrin as po ssible choice because not risk of wt gain that could be issue as well and lower SE profile. She will think about this and send me message on Monday. Discussed herbals, valerian root an d [place] wort but she does not want to try these. Review of Systems As above Objective: BP 130/78 | Pulse 95 | Resp 18 | Ht 1.778 m (5' 9.99") | Wt (!) 164.2 kg (362 lb) | Sp O2 100% | BMI 51.95 kg/m Physical Exam Constitutional: She is oriented to person, place, and time. She appears well-developed and well-nourished. No distress. HENT: Mouth/Throat: Oropharynx is clear and moist. No white patches of oral thrush present. Eyes: EOM are normal. Cardiovascular: Normal rate, regular rhythm and normal heart sounds. No murmur heard. Pulmonary/Chest: Effort normal and breath sounds normal. No respiratory distress. Musculoskeletal: Top of left foot is blue with bruising and 1 + swelling, no redness or increased warmth Neurological: She is alert and oriented to person, place, and time. Skin: Skin is warm and dry. Capillary refill takes less than 2 seconds. Psychiatric: She has a normal mood and affect. Her behavior is normal. Judgment and thought content normal. Assessment: 1. Fall, subsequent encounter 2. Right hand pain 3. Foot pain, left 4. Tongue sore CBC with Differential Ferritin Folate Vitamin B-12 Iron and Iron Binding Capacity 5. Anemia, unspecified type CBC with Differential Ferritin Folate Vitamin B-12 Iron and Iron Binding Capacity 6. Anxiety Plan: Xray left foot. She will have FU with hand surgeon. Check CBC, B12 folate, iron studies. Di scussed trial Wellbutrin for anxiety and depression and continue the Buspar. Wellbutrin poss ible choice due to lower risk of wt gain and SE. She will think about it on the weekend and let me know. She will continue FU with her therapist documented in this en counter Plan of Treatment +--------+ + + + + | Date | Type | Specialty | Care Team | Description | +--------+ + + + + | 02/18/ | Appointment | Rehabilitation | Erika Ernst, | | 2019 | | | DO [address] | | | | | | [place] [address] | | | | | | [phone] | | | | | | | | | | | | Julia Fisher, | | | | | | PT | | +--------+ + + + + | 02/18/ | Appointment | Rehabilitation | Erika Ernst, | 2019 | | | DO [address] | | | | | | [place] [address] | | | | | | [phone] | | | | | | | | | | | | Genesis Ayon, OT | | +--------+ + + + + | 02/25/ | Office | Primary Care | Erika Ernst, | | | 2019 | Visit | | DO [address] [place] [address] | | | | | | [place] [address] | | | | | | [phone] | | | | | | | [...] | | | | | [place] [address] | | | | | | [phone] | | | | | | | | +--------+ + + + + | 02/27/ | Appointment | Radiology | Dhara, | | | 2019 | | | DWAINE Ross [address] | | | [address] [place], | | | | | | [place] [address] | | | | | | [phone] | | | | | | | [...] [place] | | | | | | [place] [address] | | | | | | [phone] | | | | | | | [...] [place] | | | | | | [address] | | | | | | [phone] | | | | | | | [...] | | | | | [place] [address] | | | | | | [phone] | | | | | | | | | | | | Azul Yeboah, | | | | | | MD [address] | | | | | | [place] | | | | | | [place] [address] | | | | | | [phone] | | | | | | | [...] | | | | | | [place] [address] | | | | | | [phone] | | | | | | | | +--------+ + + + + documented as of this encounter Results XR Autumn Left 3 + Vw (05/20/2019 1:30 PM PDT) + + | Specimen | [...] XR FOOT LEFT 3 + VW HISTORY: left foot pain from | [facility] | | fall COMPARISON STUDY: 02/02/2019. 12/06/2018. FINDINGS: | | | Images in multiple views showed no significant soft tissue or bony | | | abnormality. If concern for acute fracture remains clinically | | | follow-up images in 10 to 14 days recommended. . | | + + + + -------+ | Procedure Note | + -------+ | Yoni Grullon Results In - 05/20/2019 1:40 PM PDT EXAMINATION:XR FOOT LEFT 3 + | | VWHISTORY:left foot pain from fallCOMPARISON STUDY:02/02/2019. | | 12/06/2018.FINDINGS:Images in multiple views showed no significant soft tissue or bony | | abnormality.If concern for acute fracture remains clinically follow-up images in 10 to | | 14 days recommended. .IMPRESSION: IMPRESSION:No acute findingDictated by: Chris Fu | Graeme | |COMPARISON STUDY: | |02/02/2019. 12/06/2018. | | | |FINDINGS: | |Images in multiple views showed no significant soft tissue or bony abnormality. | |If concern for acute fracture remains [...] + + Iron and Iron Binding Capacity (05/17/2019 4:54 PM PDT) + +--------+ + + + | Component | Value | Ref Range | Performed | Pathologist | | | | | At | Signature | + +--------+ + + + | Iron | 16 (L) | 50 - 170 ug/dL | [place] | | | | | [facility] | | [facility] | | + +--------+ + + + | TIBC | 353 | 250 - 450 ug/dL | [place] [facility] | | | | [facility] | | | | [facility] | | + +--------+ + + + | Iron | 5 (L) | 15 - 50 % | [place] | | | Saturation | | | [facility] | | | | | [facility] | | + +--------+ + + + + + | Specimen | + + | Blood | + + + + + + + | Performing | Address | City/State/Zipcode | Phone Number | | Organization | | | | + + + + + | [facility] [facility] | [address] | [place] | [phone] | | [facility] | | [address] | | + + + + + Vitamin B-12 (05/17/2019 4:54 PM PDT) + +-------+ + + + | Component | Value | Ref Range | Performed | Pathologist | | | | | At | Signature | + +-------+ + + + | VITAMIN | 351 | 211 - 911 pg/mL | [place] | | | B-12 | | | [facility] | | | [...] + + | [facility] [facility] | [address] | [place] | [phone] | | [facility] | | [address] | | + + + + + Folate (05/17/2019 4:54 PM PDT) + +-------+ + + + | Component | Value | Ref Range | Performed | Pathologist | | | | | At | Signature | + +-------+ + + + | FOLATE | 33.1 | >=5.4 ng/mL | [place] | | | | | [...] + + | [facility] | [address] | [place] | [phone] | | [facility] | | [address] | | + + + + + Ferritin (05/17/2019 4:54 PM PDT) + +-------+ + + + | Component | Value | Ref Range | Performed | Pathologist | | | | | At | Signature | + +-------+ + + + | Ferritin | 12.7 | 6.2 - 137.0 | [place] | | | | | ng/mL | [facility] | | | | | [...] + + | [facility] | [address] | [place] | [phone] | | [facility] | | [address] | | + + + + + documented in this encounter Visit Diagnoses + + | Diagnosis | + + | Fall, subsequent encounter - Primary | + + | Right hand pain Pain in limb | + + | Foot pain, left Pain in limb | + + | Tongue sore Glossodynia | + + | Anemia, unspecified type | + + | Anxiety Anxiety state, unspecified | + + documented in this encounter
--- OUTSIDE RECORDS SUMMARY | ~2020-02-18 | XMS | Encounter Summary ---
Demographics + + + | Address | [address] | | | [place] [address] | + + + | Home Phone [...] | + + +---------+ + | Bhavna oBss | ECON | Unknown | | + + +---------+ + Care Team Providers + +------+ + | Care Third Rail Installer Name | Role | Phone | [...] + + + + | 09/26/ | Telephone | [facility] [facility] | Erika Ernst, | Appointment Question | | 2019 | | [facility] | DO [address] | | | | | MEDICAL CLIN[facility] [address] | [facility] [place] [address] | | | | [address] [place], | [phone] | | | | | [place] [address] | | | | | | [phone] | | | +--------+ + + + [...] | | | | | [place] [address] | | | | | | [phone] | | | | | | | | | | | | Julia Fisher, | | | | | | PT | | +--------+ + + + + | 02/18/ | Appointment | Rehabilitation | Erika Ernst, | | | 2019 | | | DO [address] | | | | | | [place] [address] | | | | | | [phone] | | | | | | | | | | | | Genesis Ayon, OT | | +--------+ + + + + | 02/25/ | Office | Primary Care | Erika Ernst, | | | 2019 | Visit | | DO [address] | | | | | | [place] [address] | | | | | | [phone] | | | | | | | [...] | | | | | | [place] [address] | | | | | | [phone] | | | | | | | | +--------+ + + + + | 02/27/ | Appointment | Radiology | Dhara, | | | 2019 | | | [address] | | | | | | [address] [facility], | | | | | | [place] [address] | | | | | | [phone] | | | | | | | | +--------+ + + + + | 03/04/ | Appointment | Rehabilitation | Genesis Ayon OT | | | 2019 | | | | | +--------+ + + + + | 03/09/ | Office | Orthopedic Surgery | Jeffrey Gandhi, | | 2019 | Visit | | [address] | | | | | | [place] [address] | | | | | | [phone] | | | | | | | [...] [place] | | | | | | [address] | | | | | | [phone] | | | | | | | [...] | | | | | [place] [address] | | | | | | [phone] | | | | | | | | | | | | Azul Yeboah, | | | | | | MD [address] | | | | | | [place] | | | | | | [place] [address] | | | | | | [phone] | | | | | | | | +--------+ + + + + | 04/08/ | Appointment | Nutrition | Janel Webster | | | 2019 | | | [place], [place] | | +--------+ + + + + | 05/21/ | Office | Neurology | Dhara, | | | 2020 | Visit | | [address] [place], | | | | | | [place] [address] | | | | | | [phone] | | | | | | | | +--------+ + + + + documented as of this encounter Visit Diagnoses Not on filedocumented in this encounter"
--- OUTSIDE RECORDS SUMMARY | ~2020-02-18 | XMS | Encounter Summary ---
Demographics + + + | Address | [address] | | | [place] [address] | + + + | Home Phone | | + + + | Preferred Language | Unknown | + + + | Marital Status | Single | + + + | Orthodox Affiliation | Unknown | + + + | Race | Unknown | + + + | Ethnic Group | Unknown | + + + Author + + + | Author | [facility] | | | and [place] | + + + | Organization | [facility] | | | [...] Team Providers + +------+ + | Care Loan Counselor Name | Role | Phone | + +------+ + | Erika Ernst DO | PCP | | + +------+ + Encounter Details +--------+ + + + + | Date | Type | Department | Care Team | Description | +--------+ + + + + | 05/06/ | [facility] | [place] [facility] | Marvel, | Asthma, unspecified | | 2019 | Encounter | [facility] [address] | [place] [address] | asthma severity, | | | | [address] | [place] | unspecified whether | | | | [place] | [place] [address] | complicated, | | | | [address] | | unspecified whether | | | | [phone] | (Fax) | persistent | +--------+ + + + + Social [...] | 04/12/20 | | | (VITAMIN D3) 78291 | mouth Once a week | tablet [...] 5 | 180 mL | 1 | 04/25/20 | | | (MYCOSTATIN) 100,000 | ml four times daily | | | 19 | 9 | | units/mL | up to 48 [...] + + + +---------+ + + | traZODone | Take 1 tablet by | 30 | 2 | 04/25/20 | | | (DESYREL) 100 mg | mouth nightly as | tablet | | 19 | 9 | | tablet | needed for Insomnia. | | | | | + + [...] | | | | | [place] [address] | | | | | | [phone] | | | | | | | | | | | | Julia Fisher, | | | | | | PT | | +--------+ + + + + | 02/18/ | Appointment | Rehabilitation | Erika Ernst, | | | 2019 | | | DO [address] | | | | | | [place] [address] | | | | | | [phone] | | | | | | | | | | | | Genesis Ayon OT | | +--------+ + + + + | 02/25/ | Office | Primary Care | Erika Ernst, | | | 2019 | Visit | | DO [address] | | | | | | [place] [address] | | | | | | [phone] | | | | | | | [...] | | | | | [place] [address] | | | | | | [phone] | | | | | | | | +--------+ + + + + | 02/27/ | Appointment | Radiology | Dhara, | | | 2019 | | | [address] [place], | | | | | | [place] [address] | | | | | | [phone] | | | | | | | | +--------+ + + + + | 03/04/ | Appointment | Rehabilitation | Genesis Ayon OT | | | 2019 | | | | | +--------+ + + + + | 03/09/ | Office | Orthopedic Surgery | eJffrey Gandhi, | | | 2019 | Visit | | [address] [place] | | | | | | [place] [address] | | | | | | [phone] | | | | | | | [...] [place] | | | | | | [address] | | | | | | [phone] | | | | | | | [...] | | | | | [place] [address] | | | | | | [phone] | | | | | | | | | | | | Azul Yeboah, | | | | | | [address] | | | | | | [place] | | | | | | [place] [address] | | | | | | [phone] | | | | | | | [...] | | | | | | [place] [address] | | | | | | [phone] | | | | | | | | +--------+ + + + + documented as of this encounter Procedures + +--------+ + + + | Procedure Name | Priori | Date/Time | Associated Diagnosis | Comments | | | ty | | | | + +--------+ + + + | XR CHEST 2 VIEWS | Routin | 05/06/2019 | Asthma, | Results for this | | | e | 1:31 PM | unspecified asthma | procedure are in the | | | | PDT | severity, | results section. | | | | | unspecified whether | | | | | | complicated, | | | | | | unspecified whether | | | | | | persistent | | + +--------+ + + + documented in this encounter Results XR Chest 2 Vws (05/06/2019 1:31 PM PDT) + + | Specimen | + + | | + + + + + | Impressions | Performed At | + + + | IMPRESSION: No acute cardiopulmonary process. Dictated by: | [facility] | | Braydon Stockton Electronically Signed by: Braydon Stockton on | | | 05/06/2019 2:44 PM | | + + + + + + | Narrative | Performed At | + + + | EXAMINATION: XR CHEST 2 VIEWS HISTORY: Asthma, unspecified | [facility] | | asthma severity, unspecified whether complicated, unspecified whether | | | persistent COMPARISON STUDY: None FINDINGS: The lungs are | | | mildly hypoventilated but clear. No obvious bronchial wall | | | thickening. No pleural effusion. No pneumothorax. | | | Cardiomediastinal silhouette is normal. No acute osseous process. | | | | | + + + + + | Procedure Note | + + | Mitchel, Rad Results In - 05/06/2019 2:48 PM PDT EXAMINATION:XR CHEST 2 | | VIEWSHISTORY:Asthma, unspecified asthma severity, unspecified whether complicated, | | unspecified whether persistentCOMPARISON STUDY:NoneFINDINGS:The lungs are mildly | | hypoventilated but clear. No obvious bronchial wall thickening. No pleural effusion. | | No pneumothorax. Cardiomediastinal silhouette is normal. No acute osseous | | process.IMPRESSION: IMPRESSION:No acute cardiopulmonary process.Dictated by: Braydon | | Paoloectronically Signed by: Braydon Stockton on 05/06/2019 2:44 PM | |None | | | |FINDINGS: | |The lungs are mildly hypoventilated but clear. No obvious bronchial wall thickening. No p leural effusion. No pneumothorax. Cardiomediastinal silhouette is normal. No acute osseou s process. | | | |IMPRESSION: | |IMPRESSION: [...] + | Diagnosis | + + | Asthma, unspecified asthma severity, unspecified whether complicated, unspecified | | whether persistent | + + documented in this encounter"
--- OUTSIDE RECORDS SUMMARY | ~2020-02-18 | XMS | Encounter Summary ---
Demographics + + + | Address | [address] | | | [place] [address] | + + + | Home Phone [...] Team Providers + +------+ + | Care Rhinestone Setter Name | Role | Phone | + [...] | | tenosynoviti | [address] | [place], | | | | | s (de | [place], [place] | [place] [address] | | | | | quervain) | [address] | Phone: | | | | | Pain in | Phone: | [phone] | | | | | right wrist | [phone] | Fax: | | | | | Procedures | Fax: | [phone] | | | | | OT TREAT | [phone] | | +--------+--------+ + + + + Encounter Details +--------+ + + + + | Date | Type | Department | Care Team | Description | +--------+ + + + + | 10/30/ | Hospital | [facility] | Jeffrey Gandhi, | Radial styloid | | 2019 | Encounter | HOSPITAL THERAPY OT | [address] | tenosynovitis | | | | [address] [place] | [place] [address] | (Primary Dx); Right | | | | [place], [place] | [phone] | wrist pain | | | | [address] | | | | | | [phone] | Nakia Koo OT | | +--------+ [...] (BUSPAR) | take 1 tablet by | 60 | 3 | 10/31/19 | | | 15 mg | mouth twice a day | tablet | | 19 | 9 [...] | 19 | 9 | | [id number]) | | | | | | | [...] encounter Progress Notes Nakia Koo, OT - 10/30/2018 5:04 PM PST Patient Information Patient: Andrea Suh Ordering Physician: Jeffrey Gandhi MD Claim #: [id number] Date of Injury: 07/20/2018 Visits since the Date of Injury Date First Treated: 08/07/2018 Total number of visits: 12 Last Period's Progress Information Period (not required for initial evaluation) From: 09/28/2018 To: 10/30/2018 Number of visits for the above period: 4 Number of missed appointments for the above period: 0 Diagnosis Information Current Pain: Pain Assessment: Pain Rating Pre Assessment: 3 Location: Pain ranges from 3-5/6 out of 10, exacerbated by activity. Diagnosis: Encounter Diagnoses Code Name Primary? 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 and can also include restraining clients Dates: Previous exam: 09/28/2018 Current exam: 10/30/2018 ROM / Strength ROM at last Assessment Hand dominance: R Upper Extremities RUE AROM R Forearm Pronation: 80 R Forearm Supination: 65 R wrist flexion: 49 R wrist extension: 55 R wrist radial deviation: 13 R wrist ulnar deviation: 12 Current ROM Range of Motion (measured in degrees): RUE AROM LUE AROM (degrees) L Forearm Pron: 80 L Forearm Sup: 65 L Wrist Flex: 67 L Wrist Ext : 60 L Wrist Radial Deviation : 25 L Wrist Ulnar Deviation: 28 Strength at last Assessment eft Veterinarian Epidemiologist Strength L pai gow manager trial average: 54.33 lbs L Three Jaw payam average: 11.33 lbs L Lateral pinch trial average: 16.83 lbs Right pai gow manager Strength R pai gow manager trial average: 24.33 lbs R three jaw payam average: 8.33 lbs R lateral pinch trial average: 10.33 lbs Current Strength Strength: Left Hand Strength - Veterinarian Epidemiologist (lbs) L Veterinarian Epidemiologist Trial 1: 40 L Veterinarian Epidemiologist Trial 2: 46 L Veterinarian Epidemiologist Trial 3: 55 L Veterinarian Epidemiologist Trial Average: 47 L Three Jaw Payam Trial 1: 12 L Three Jaw Payam Trial 2: 13 L Three Jaw Payam Trial 3: 11 L Three Jaw Payam Trial Average: 12 L Lateral Pinch Trial 1: 17 L Lateral Pinch Trial 2: 17 L Lateral Pinch Trial 3: 18 L Lateral Pinch Trial Average: 17.33 Right Hand Strength - Veterinarian Epidemiologist (lbs) R Veterinarian Epidemiologist Trial 1: 20 R Veterinarian Epidemiologist Trial 2: 25 R Veterinarian Epidemiologist Trial 3: 32 R Veterinarian Epidemiologist Trial Average: 25.67 R Three Jaw Payam Trial 1: 9 R Three Jaw Payam Trial 2: 9 R Three Jaw Payam Trial 3: 10 R Three Jaw Payam Trial Average: 9.33 R Lateral Pinch Trial 1: 9 R Lateral Pinch Trial 2: 10 R Lateral Pinch Trial 3: 12 R Lateral Pinch Trial Average: 10.33 Proposed Treatment Dates for Majoris Review Proposed treatments date: 11/08/2018 to 12/06/2018 Date of Onset: 07/20/2018 Start of Care Date: 08/07/2018 Requested # of Visits: 24 visits 2x/week for 12 weeks Certification From: 10/30/2018 Certification To: 01/22/2019 Treatment Plan/Interventions OT [id number] - Therapeutic [id number] - Therapeutic [id number] - Self Care/Ho me Zezdgjfkcm34817 - Manual Uwznipy04513 - Orthotic/Prosthetic Uslrfevq79723 - Qcxaolffth421 34 - Contrast Kryi19525 - Paraffin BathSplinting Moist heat, cold therapy Patient and/or family has indicated understanding of treatment needs and actively participa everardo in the creation of this plan for care. Brief narrative of progress to date, functional/objective limitation to be address in the p roposed treatment period, and objective or functional gain achieved to justify continuing th erapy (if not initial request) 10/30/2018 - REASON FOR RE-CERTIFICATION: Andrea has received 12 Occupational Therapy treatm ents since 08/07/2018 following her right wrist surgery. She has regained full AROM of the ri ght wrist but continues to have right wrist, pai gow manager and pinch weakness and significant pain (3 -03/11) with daily activities with associated decline in [...] in 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, and pai gow manager and pinch weakness in the right hand [...] one (Likely / Unlikely / Guarded/ N/A): LIKELY Prognosis of returning to prior occupation in the proposed treatment period: Please choose one (Likely / Unlikely / Guarded/ N/A): LIKELY Comments, including work recommendations: Lifting, carrying, pushing/pulling [...] skilled OT OP services. Electronically signed by: Nakia Koo OT, 10/30/2018 17:05 Nakia Padgett OT - 10/30/2018 4:[address] [facility] THERAPY OT [address] [place] [address] Occupational Therapy Progress Assessment Date: 10/30/2018 Patient Information Patient Name: Andrea Suh Date of : 1990 Age: 28 y.o. Encounter Diagnoses Code Name Primary? M65.4 Radial styloid tenosynovitis Yes M25.531 Right wrist pain Date of Onset: 07/20/2018 Referring Provider: Jeffrey Gandhi MD Objective Pain Assessment: Pain Rating Pre Assessment: 3 Location: Pain ranges from 3-5/6 out of 10, exacerbated by activity. Standardized Tests: QuickDASH (QD) Open a tight or new jar: 4 - Severe Difficulty Do heavy action finisher: 4 - Severe Difficulty Carry a shopping bag or briefcase: 2 - Mild Difficulty Wash your back: 1 - No Difficulty Use a Knife to cut food: 1 - No Difficulty Recreational Activities which impact the UE: 5 - Unable Interfered with Social Activities: 3 - Moderately Limit Work or Regular Daily Activities: 4 - Very Limited Arm, shoulder or hand pain: 3 - Moderate Tingling in arm, shoulder or hand: 3 - Moderate Difficulty Sleeping due to pain in UE: 2 - Mild Difficulty QuickDASH Mean Score (Calculated): 2.91 QuickDASH Disability/Symptom Score (Calculated): 47.73 QuickDASH Goal: The pt will have increased functional use of her right hand indicated by a QuickDASH score of 15% with pain no greater than 2/10 with daily activities by discharge QuickDASH Goal Status: PARTIALLY MET - QuickDASH score has decreased from 80% to 45% since evaluation and pain ranges from 3-6/10 with daily activities. Range of Motion (measured in degrees): LUE AROM (degrees) L Forearm Pron: 80 L Forearm Sup: 65 L Wrist Flex: 67 L Wrist Ext : 60 L Wrist Radial Deviation : 25 L Wrist Ulnar Deviation: 28 Strength: Left Hand Strength - Veterinarian Epidemiologist (lbs) L Veterinarian Epidemiologist Trial 1: 40 L Veterinarian Epidemiologist Trial 2: 46 L Veterinarian Epidemiologist Trial 3: 55 L Veterinarian Epidemiologist Trial Average: 47 L Three Jaw Payam Trial 1: 12 L Three Jaw Payam Trial 2: 13 L Three Jaw Payam Trial 3: 11 L Three Jaw Payam Trial Average: 12 L Lateral Pinch Trial 1: 17 L Lateral Pinch Trial 2: 17 L Lateral Pinch Trial 3: 18 L Lateral Pinch Trial Average: 17.33 Right Hand Strength - Veterinarian Epidemiologist (lbs) R Veterinarian Epidemiologist Trial 1: 20 R Veterinarian Epidemiologist Trial 2: 25 R Veterinarian Epidemiologist Trial 3: 32 R Veterinarian Epidemiologist Trial Average: 25.67 R Three Jaw Payam Trial 1: 9 R Three Jaw Payam Trial 2: 9 R Three Jaw Payam Trial 3: 10 R Three Jaw Payam Trial Average: 9.33 R Lateral Pinch Trial 1: 9 R Lateral Pinch Trial 2: 10 R Lateral Pinch Trial 3: 12 R Lateral Pinch Trial Average: 10.33 Today's Treatment Patient Name: Andrea Henaonanci/: 1990/ Start Time: 1330 Stop time: 1424 Duration: 54 minutes Timed Treatment Codes: 45 minutes # of OT Visits: 12.4 Visit Summary: S: I feel like pain and weakness are the primarily problems. Some of the fun ctional deficits are because of the weight restriction of 15 lbs. I would like to continue w ith therapy for my wrist because I think I still need it and it is helping. I am doing my HE P daily. A: Andrea has made some progress but continues to have deficits in strength and pain with functional activities. She benefits from continued OT to address these deficits and fa cilitate return to full funcitonal use of her right hand, including return to work. Focus of treatment on strengthening wrist. Next Visit: Response to strengthening. Patient/Caregiver Education Learner: Patient Method: Explanation Response: Verbalizes Understanding Comment: Discussion on plan for ongoing therapy Interventions OT INTERVENTION 2: TE - 30 minutes: With 3 lb x 5 - wrist extension, radial deviation and flexion. Holding a hammer 3" from the head, controlled supination/pronation to increase wri st stability. UBC upgraded to 8 minutes, alternating forward and backward each minute, 4 min utes bilaterally, 4 minutes right hand only. Wrist roll - 3 lbs x 2. Added biceps curl with press with 5 lb weight x 15. Inclined push ups at the parallel bars x 15. Cable machine - 2 plates for functional pulling and pushing x 15 each position. Added lifting with one plate x 15 and holding green ball (500g) doing the alphabet for wrist excursion. OT MANUAL THERAPY 1: 15 minutes - [...] wrist but continues to have right wrist, pai gow manager and pinch weakness and significant pain (3 [...] in 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, and pai gow manager and pinch weakness in the right hand [...] participating in skilled occupational therapy serv ices. Goals: Outcome Specific Scored Goals QuickDASH Goal: The pt will have increased functional use of her right hand indicated by a QuickDASH score of 15% with pain no greater than 2/10 with daily activities by discharge QuickDASH Goal Status: PARTIALLY MET - QuickDASH score has decreased from 80% to 45% since evaluation and pain ranges from 3-6/10 with daily activities. OP OT Goals Goal 1: The pt will have right wrist and thumb AROM to 90% of the left by discharge Goal 1 Status: ACHIEVED - Right wrist YANES is 98% of left (325/331) Goal 2: The pt will have right pai gow manager strength of 50 lbs by discharge Goal 2 Status: PARTIALLY MET - Right pai gow manager has increased from 20 to 26 lbs since evaluaiton. Left pai gow manager is 47 lbs Goal 3: The pt will have increased right pinch strength to 13 lbs by discharge Goal 3 Status: PARTIALLY MET - right pinch is 9 lbs, left is 15 lbs Goal 4: The pt will be independent and compliant with HEP Goal 4 Status: ONGOING - pt reports daily compliance with HEP which includes wrist, pai gow manager an d pinch strengthening as well as general UE strengthening Plan Date of Onset: 07/20/2018 Start of Care Date: 08/07/2018 Requested # of Visits: 24 visits 2x/week for 12 weeks Certification From: 10/30/2018 Certification To: 01/22/2019 Treatment Plan/Interventions OT [id number] - Therapeutic Vbjkszoh91106 - Therapeutic Ssjnlgwgco88015 - Self Care/Ho me Ksealvnsmr31691 - Manual Lcyqjnk60177 - Orthotic/Prosthetic Adpdgzuo51764 - Lyeukiwafg929 34 - Contrast Ojis88720 - Paraffin BathSplinting Moist heat, cold therapy Patient and/or family has indicated understanding of treatment needs and actively participa everardo in the creation of this plan for care. Electronically signed by: Nakia Koo OT, 10/30/2018 17:04 Patient Name: Andrea Henaonanci/: 1990/ signed by Nakia Koo OT at 10/30/2018 5:19 PM PSTdocumented in this encounter Plan of Treatment +--------+ + + + + | Date | Type | Specialty | Care Team | Description | +--------+ + + + + | 02/18/ | Appointment | Rehabilitation | Erika Ernst, | | | 2019 | | | DO [address] | | | | | | [place] [address] | | | | | | [phone] | | | | | | | | | | | | Julia Fisher, | | | | | | PT | | +--------+ + + + + | 02/18/ | Appointment | Rehabilitation | Erika Ernst, | | | 2019 | | | DO [address] [place] | | | | | | [place] [address] | | | | | | [phone] | | | | | | | | | | | | Genesis Ayon OT | | +--------+ + + + + | 02/25/ | Office | Primary Care | Erika Ernst, | | | 2019 | Visit | | DO [address] | | | | | | [place] [address] | | | | | | [phone] | | | | | | | [...] | | | | | | [place] [address] | | | | | | [phone] | | | | | | | | +--------+ + + + + | 02/27/ | Appointment | Radiology | Dhara, | | | 2019 | | | [address]WA[address] [place], | | | | | | [place] [address] | | | | | | [phone] | | | | | | | [...] ST | | | | | | [place] [address] | | | | | | [phone] | | | | | | | | +--------+ + + + + | 03/11/ | Appointment | Rehabilitation | Genesis Ayon OT | | | 2019 | | | | | +--------+ + + + + | 03/18/ | Appointment | Rehabilitation | Genesis Ayon, SUSAN | | | 2019 | | | | | +--------+ + + + + | 03/19/ | Office | Obstetrics and | Emily Avery | | | 2019 | Visit | Gynecology | DO [address] | | | | | [address] | | | | | | [place] | | | | | | [address] | | | | | | [phone] | | | | | | | [...] | | | | | [place] [address] | | | | | | [phone] | | | | | | | | | | | | Azul Yeboah, | | | | | | MD [address] | | | | | | [place] | | | | | | [place] [address] | | | | | | [phone] | | | | | | | [...] | | | | | | [place] [address] | | | | | | [phone] | | | | | | | | +--------+ + + + + documented as of this encounter Visit Diagnoses + + | Diagnosis | + + | Radial styloid tenosynovitis - Primary | + + | Right wrist pain Pain in joint, forearm | + + documented in this encounter
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
--- OUTSIDE RECORDS SUMMARY | ~2020-02-18 | XMS | Encounter Summary ---
Demographics + + + | Address | [address] | | | [place] [address] | + + + | Home Phone [...] + + + | Author | [facility] | | | and [place] | + + + | Organization | [facility] | | | [...] Team Providers + +------+ + | Care Dry Wall Nailer Name | Role | Phone | + [...] Description | +--------+--------+ + + + | 11/21/ | Refill | [facility] [facility] | Erika Ernst, | Medication Refill | | 2019 | | [facility] | DO [address] | | | | | [facility] [address] | [place] [address] | | | | | [address] [place], | [phone] | | | | | [place] [address] | | | | | | [phone] | | | +--------+--------+ + + + [...] | | | | | [place] [address] | | | | | | [phone] | | | | | | | | | | | | Julia Fisher, | | | | | | PT | | +--------+ + + + + | 02/18/ | Appointment | Rehabilitation | Erika Ernst, | | | 2019 | | | DO [address] [place] | | | | | | [place] [address] | | | | | | [phone] | | | | | | | | | | | | Genesis Ayon OT | | +--------+ + + + + | 02/25/ | Office | Primary Care | Erika Ernst, | | | 2019 | Visit | | DO [address] [place] | | | | | | [place] [address] | | | | | | [phone] | | | | | | | [...] | | | | | | [place] [address] | | | | | | [phone] | | | | | | | | +--------+ + + + + | 02/27/ | Appointment | Radiology | Dhara, | | | 2019 | | | [address] | | | | | | [address] [facility], | | | | | | [place] [address] | | | | | | [phone] | | | | | | | [...] [place] | | | | | | [place] [address] | | | | | | [phone] | | | | | | | [...] [place] | | | | | | [address] | | | | | | [phone] | | | | | | | [...] | | | | | [place] [address] | | | | | | [phone] | | | | | | | | | | | | Azul Yeboah, | | | | | | MD [address] | | | | | | [place] | | | | | | [place] [address] | | | | | | [phone] | | | | | | | [...] | | | | | | [place] [address] | | | | | | [phone] | | | | | | | | +--------+ + + + + documented as of this encounter Visit Diagnoses Not on filedocumented in this encounter"
--- OUTSIDE RECORDS SUMMARY | ~2020-02-18 | XMS | Encounter Summary ---
Demographics + + + | Address | [address] | | | [place] [address] | + + + | Home Phone [...] Team Providers + +------+ + | Care Information Technology Associate Name | Role | Phone | + +------+ + | Erika Ernst DO | PCP | | + +------+ + Encounter Details +--------+ + + + + | Date | Type | Department | Care Team | Description | +--------+ + + + + | 01/10/ | Orders Only | [facility] | Emily Mittal DPM | | | 2019 | | [facility] | [address] [place] | | | | | [address] | [place], [place] | | | | | [place] | [address] | | | | | [address] | | | | | | [phone] | | | +--------+ + + + [...] | | | | | [place] [address] | | | | | | [phone] | | | | | | | | | | | | Julia Fisher, | | | | | | PT | | +--------+ + + + + | 02/18/ | Appointment | Rehabilitation | Erika Ernst, | | | 2019 | | | DO [address] [place] | | | | | | [place] [address] | | | | | | [phone] | | | | | | | | | | | | Genesis Ayon, SUSAN | | +--------+ + + + + | 02/25/ | Office | Primary Care | Erika Ernst, | | | 2019 | Visit | | DO [address] [place] [address] | | | | | | [place] [address] | | | | | | [phone] | | | | | | | [...] | | | | | [place] [address] | | | | | | [phone] | | | | | | | | +--------+ + + + + | 02/27/ | Appointment | Radiology | Dhara, | | | 2019 | | | [address] | | | | | [address] [place], | | | | | | [place] [address] | | | | | | [phone] | | | | | | | | +--------+ + + + + | 03/04/ | Appointment | Rehabilitation | Genesis Ayon OT | | | 2019 | | | | | +--------+ + + + + | 03/09/ | Office | Orthopedic Surgery | Jeffrey Gandhi, | | | 2019 | Visit | | [address] | | | | | | [place] [address] | | | | | | [phone] | | | | | | | [...] [place] | | | | | | [address] | | | | | | [phone] | | | | | | | [...] | | | | | [place] [address] | | | | | | [phone] | | | | | | | | | | | | zAul Yeboah, | | | | | | MD [address] | | | | | | [place] | | | | | | [place] [address] | | | | | | [phone] | | | | | | | [...] | | | | | | [place] [address] | | | | | | [phone] | | | | | | | | +--------+ + + + + documented as of this encounter Visit Diagnoses Not on filedocumented in this encounter"
--- OUTSIDE RECORDS SUMMARY | ~2020-02-18 | XMS | Encounter Summary ---
Demographics + + + | Address | [address] | | | [place] [address] | + + + | Home Phone [...] Team Providers + +------+ + | Care Enrichment Director Name | Role | Phone | [...] 05/16/ | Office | [facility] [facility] | Klever Erika Salter, | Asthma due to | | 2017 | Visit | [facility] | DO [address] | environmental | | | | [facility] | [place] [address] | allergies (Primary | | | | [address] [place], | [phone] | Dx); Nausea | | | | [place] [address] | | | | | | [phone] | | | +--------+---------+ + + + [...] | Blood Pressure | 140/98 | 05/16/2018 8:02 AM | | | | | PDT | | + + + + + | Pulse | 77 | 05/16/2018 8:02 AM | | | | | PDT | | + + + + + | Temperature | 36.3 C (97.4 F) | 05/16/2018 8:02 AM | | | | | PDT | | + + + + + | Respiratory Rate | 16 | 05/16/2018 8:02 AM | | | | | PDT | | + + + + + | Oxygen Saturation | 100% | 05/16/2018 8:02 AM | | | | | PDT | | + + + + + | Inhaled Oxygen | - | - | | | Concentration | | | | + + + + + | Weight | 166.5 kg (367 lb) | 05/16/2018 8:02 AM | | | | | PDT | | + + + + + | Height | 177.8 cm (5' 10") | 05/16/2018 8:02 AM | | | | | PDT | | + + + + + | Body Mass Index | 52.66 | 05/16/2018 8:02 AM | | | | | PDT | | + + + + + documented in this encounter Progress Notes Erika Ernst DO - 05/16/2018 8:00 AM PDTFormatting of this note might [...] daily. 1 Inhaler 11 Cholecalciferol (VITAMIN D3) 44982 units TABS Take 1 tablet by mouth [...] do another round of oral steroid . documented in this en counter Plan of Treatment +--------+ + + + + | Date | Type | Specialty | Care Team | Description | +--------+ + + + + | 02/18/ | Appointment | Rehabilitation | Erika Ernst, | | | 2019 | | | DO [address] [place] | | | | | | [place] [address] | | | | | | [phone] | | | | | | | | | | | | Julia Fisher, | | | | | | PT | | +--------+ + + + + | 02/18/ | Appointment | Rehabilitation | Erika Ernst, | | | 2019 | | | DO [address] [place] | | | | | | [place] [address] | | | | | | [phone] | | | | | | | | | | | | Genesis Ayon OT | | +--------+ + + + + | 02/25/ | Office | Primary Care | Erika Ernst, | | | 2019 | Visit | | DO [address] [place] | | | | | | [place] [address] | | | | | | [phone] | | | | | | | [...] | | Visit | | [address] [place] | | | | | | [place] [address] | | | | | | [phone] | | | | | | | | +--------+ + + + + | 02/27/ | Appointment | Radiology | Dhara, | | | 2019 | | | DWAINE Ross [address] | | | [address] [place], | | | | | | [place] [address] | | | | | | [phone] | | | | | | | | +--------+ + + + + | 03/04/ | Appointment | Rehabilitation | Genesis Ayon OT | | | 2019 | | | | | +--------+ + + + + | 03/09/ | Office | Orthopedic Surgery | Jeffrey Gandhi, | | | 2019 | Visit | | [place] [address] [facility] | | | | | | [place] [address] | | | | | | [phone] | | | | | | | [...] [place] | | | | | | [address] | | | | | | [phone] | | | | | | | [...] | | | | | [place] [address] | | | | | | [phone] | | | | | | | | | | | | Azul Yeboah, | | | | | | MD [address] | | | | | | [place] | | | | | | [place] [address] | | | | | | [phone] | | | | | | | [...] | | | | | | [address] [place], | | | | | | [place] [address] | | | | | | [phone] | | | | | | | | +--------+ + + + + documented as of this encounter Results , Urine, Qual (05/16/2018 8:32 AM PDT) + + + + + + | Component | Value | Ref Range | Performed | Pathologist | | | | | At | Signature | + + + + + + | HCG | Negative | Negative | [place] | | | Qualitative | | | [facility] | | | , Urine | | | [facility]OSP[facility] | | [...] + + | [place] [facility] | [address] | [place] | [phone] | | [facility] | | [address] | | | [facility] | | | | + + + + + documented in this encounter Visit Diagnoses + + | Diagnosis | + + | Asthma due to environmental allergies - Primary | + + | Nausea Nausea alone | + + documented in this encounter
--- OUTSIDE RECORDS SUMMARY | ~2020-02-18 | XMS | Encounter Summary ---
Demographics + + + | Address | [address] | | | [place] [address] | + + + | Home Phone | | + + + | Preferred Language | Unknown | + + + | Marital Status | Single | + + + | Congregation Affiliation | Unknown | + + + | Race | Unknown | + + + | Ethnic Group | Unknown | + + + Author + + + | Author | [facility] | | | and [place] | + + + | Organization | [facility] | | | [...] Team Providers + +------+ + | Care Track Greaser Name | Role | Phone | + +------+ + | Erika Ernst DO | PCP | | + +------+ + Reason for Visit + + + | Reason | Comments | + + + | Follow-up | Blood pressure | + + + Encounter Details +--------+---------+ + + + | Date | Type | Department | Care Team | Description | +--------+---------+ + + + | 08/01/ | Office | [facility] | Erika Ernst, | Essential | | 2019 | Visit | [facility] | DO [address] | hypertension | | | | [facility] | [place] [address] | (Primary Dx); | | | | [address] [place], | [phone] | Acquired | | | | [place] [address] | | hypothyroidism; Iron | | | | [phone] | | deficiency; PTSD | | | | | | (post-traumatic | | | | | | stress disorder) | +--------+---------+ + + + Social History [...] + + + | Blood Pressure | 142/92 | 08/01/2019 7:17 AM | | | | | PDT | | + + + + + | Pulse | 84 | 08/01/2019 7:17 AM | | | | | PDT | | + + + + + | Temperature | - | - | | + + + + + | Respiratory Rate | 18 | 08/01/2019 7:17 AM | | | | | PDT | | + + + + + | Oxygen Saturation | 98% | 08/01/2019 7:17 AM | | | | | PDT | | + + + + + | Inhaled Oxygen | - | - | | | Concentration | | | | + + + + + | Weight | 174.6 kg (385 lb) | 08/01/2019 7:17 AM | | | | | PDT | | + + + + + | Height | 177.8 cm (5' 10") | 08/01/2019 7:17 AM | | | | | PDT | | + + + + + | Body Mass Index | 55.24 | 08/01/2019 7:17 AM | | | | | PDT | | + + + + + documented in this encounter Progress Erika Cespedes DO - 08/01/2019 7:20 AM PDTFormatting of this note might be different fro m the original. Subjective: Patient ID: Andrea Suh is a 29 y.o. female. Here for FU on HTN. (not work comp). BP elevated systolic and diastolic. She has not been t aking any of her medication consistently she states gets busy with work and has been missing ramipril for BP and her thyroid and iron meds. She will try to take meds consistently the n ext few weeks and return for recheck. She has sleep issues and PTSD and would benefit with a ddiction of prazosin at HS for these issues and HTN and with the known multiple benefits she may be more likely to take the med. Agrees to trial. Non-smoker Review of Systems As above Objective: BP (!) 142/92 | Pulse 84 | Resp 18 | Ht 1.778 m (5' 10") | Wt (!) 174.6 kg (385 lb) | LMP 07/15/2019 (Exact Date) | SpO2 98% | BMI 55.24 kg/m Physical Exam Constitutional: She is oriented to person, place, and time. She appears well-developed and well-nourished. No distress. HENT: Head: Normocephalic and atraumatic. Eyes: Pupils are equal, round, and reactive to light. EOM are normal. Cardiovascular: Normal rate, regular rhythm and normal heart sounds. No murmur heard. Pulmonary/Chest: Effort normal and breath sounds normal. No respiratory distress. She has n o wheezes. She has no rales. Neurological: She is alert and oriented to person, place, and time. Skin: Skin is warm and dry. Psychiatric: She has a normal mood and affect. Her behavior is normal. Assessment: 1. Essential hypertension 2. Acquired hypothyroidism 3. Iron deficiency 4. PTSD (post-traumatic stress disorder) Plan: Continue the ramipril and take in AM, start prazosin 1 mg at HS and monitor BP at home. Gil e thyroid med and iron consistently for the next 3 weeks then see me for recheck. documented in this en counter Plan of Treatment +--------+ + + + + | Date | Type | Specialty | Care Team | Description | +--------+ + + + + | 02/18/ | Appointment | Rehabilitation | Erika Ernst, | | | 2019 | | | DO [address] [place] | | | | | | [place] [address] | | | | | | [phone] | | | | | | | | | | | | Julia Fisher, | | | | | | PT | | +--------+ + + + + | 02/18/ | Appointment | Rehabilitation | Erika Ernst, | | | 2019 | | | DO [address] [place] | | | | | | [place] [address] | | | | | | [phone] | | | | | | | | | | | | Genesis Ayon, OT | | +--------+ + + + + | 02/25/ | Office | Primary Care | Erika Ernst, | | | 2019 | Visit | | DO [address] [place] | | | | | | [place] [address] | | | | | | [phone] | | | | | | | [...] | | | | | [place] [address] | | | | | | [phone] | | | | | | | | +--------+ + + + + | 02/27/ | Appointment | Radiology | Dhara, | | | 2019 | | | [address] | | | | | | [address] [place] [address], | | | | | | [place] [address] | | | | | | [phone] | | | | | | | | +--------+ + + + + | 03/04/ | Appointment | Rehabilitation | Genesis Ayon OT | | 2019 | | | | | +--------+ + + + + | 03/09/ | Office | Orthopedic Surgery | Jeffrey Gandhi, | | 2019 | Visit | | [address] | | | | | | [place] [address] | | | | | | [phone] | | | | | | | | +--------+ + + + + | 03/11/ | Appointment | Rehabilitation | Genesis Ayon OT | | 2019 | | | | | +--------+ + + + + | 03/18/ | Appointment | Rehabilitation | Genesis Ayno OT | | 2019 | | | | | +--------+ + + + + | 03/19/ | Office | Obstetrics and | Emily Avery | | 2019 | Visit | Gynecology | Radha, DO [address] | | | | | | [place], [place] | | | | | | [address] | | | | | | [phone] | | | | | | | [...] | | | | | [place] [address] | | | | | | [phone] | | | | | | | | | | | | Azul Yeboah, | | | | | | MD [address] | | | | | | [place] | | | | | | [place] [address] | | | | | | [phone] | | | | | | | [...] | | | | | | [place] [address] | | | | | | [phone] | | | | | | | | +--------+ + + + + documented as of this encounter Visit Diagnoses + + | Diagnosis | + + | Essential hypertension - Primary Unspecified essential hypertension | + + | Acquired hypothyroidism Unspecified hypothyroidism | + + | Iron deficiency Other disorders of iron metabolism | + + | PTSD (post-traumatic stress disorder) Posttraumatic stress disorder | + + documented in this encounter
--- OUTSIDE RECORDS SUMMARY | ~2020-02-18 | XMS | Encounter Summary ---
Demographics + + + | Address | [address] | | | [place] [address] | + + + | Home Phone [...] Team Providers + +------+ + | Care Fourth Officer Name | Role | Phone | + +------+ + | Erika Ernst DO | PCP | | + +------+ + Reason for Visit + + + | Reason | Comments | + + + | Foot Pain | | + + + Encounter Details +--------+ + + + + | Date | Type | Department | Care Team | Description | +--------+ + + + + | 02/02/ | Emergency | [facility] [facility] | Lb Mirza | Heel pain, chronic, | | 2019 | | [facility] | MD [address] | right (Primary Dx) | | | | CENTER [address] | [facility] | | | | | DR [place], [place] | [place] [address] | | | | | [address] | [phone] | | | | | [phone] | | | +--------+ + + + [...] + + + | Blood Pressure | 129/80 | 02/02/2019 2:05 PM | | | | | PDT | | + + + + + | Pulse | 70 | 02/02/2019 2:03 PM | | | | | PDT | | + + + + + | Temperature | 36.2 C (97.2 F) | 02/02/2019 2:03 PM | | | | | PDT | | + + + + + | Respiratory Rate | 19 | 02/02/2019 2:03 PM | | | | | PDT | | + + + + + | Oxygen Saturation | 99% | 02/02/2019 2:03 PM | | | | | PDT | | + + + + + | Inhaled Oxygen | - | - | | | Concentration | | | | + + + + + | Weight | 172 kg (379 lb 3.1 | 02/02/2019 2:03 PM | | | | oz) | PDT | | + + + + + | Height | 177.8 cm (5' 10") | 02/02/2019 2:03 PM | | | | | PDT | | + + + + + | Body Mass Index | 54.41 | 02/02/2019 2:03 PM | | | | | PDT | | + + + + + documented in this encounter Medications at Time [...] + +---------+ + + | amLODIPine | take 1 tablet by | | 1 | 02/02/20 | | | (NORVASC) 5 mg | mouth once daily | | | 19 | 9 | | tablet | | | | | | + + + +---------+ + + | beclomethasone | Inhale 1 puff into | | 0 | | | | (QVAR) 80 mcg/puff | the lungs. | | | | 9 | | inhaler | | [...] | 11/26/19 | | | (VITAMIN D3) 39205 | mouth Once a week | tablet [...] topically | 100 g | 1 | 01/11/20 | | | (VOLTAREN) 1% GEL | [...] + + + +---------+ + + | meloxicam (MOBIC) | Take 1 tablet by | 10 | 0 | 02/03/20 | | | 7.5 mg tablet | mouth Daily as | tablet | | 19 | 9 | | | needed for Pain. | | | | | + + + +---------+ + + | montelukast | Take 1 tablet by | 30 | 11 | 08/07/20 | | | (SINGULAIR) 10 mg | mouth nightly. | tablet | | 18 | 9 | | tablet | | | | | | + + + +---------+ + + | | Take 1 capsule by | | 0 | | | | triamterene-hydrochl | mouth every morning. | | | | 9 | | orothiazide | | | | | | | (DYAZIDE) 37.5-25 MG | | | | | | | per capsule | | | | | | + + + +---------+ + + documented as of this encounter Plan of Treatment +--------+ + + + + | Date | Type | Specialty | Care Team | Description | +--------+ + + + + | 02/18/ | Appointment | Rehabilitation | rEika Ernst, | | | 2020 | | | DO [facility] | | | | | | [facility] [place] [address] | | | | | | [phone] | | | | | | | | | | | | Julia Fisher, | | | | | | PT | | +--------+ + + + + | 02/18/ | Appointment | Rehabilitation | Erika Ernst, | | | 2019 | | | DO [address] | | | | | | [place] [address] | | | | | | [phone] | | | | | | | | | | | | Genesis Ayon, SUSAN | | +--------+ + + + + | 02/25/ | Office | Primary Care | Erika Ernst, | | | 2019 | Visit | | DO [address] [place] | | | | | | [place] [address] | | | | | | [phone] | | | | | | | [...] | | | | | [place] [address] | | | | | | [phone] | | | | | | | | +--------+ + + + + | 02/27/ | Appointment | Radiology | Dhara, | | | 2019 | | | [address] | | | | | | [address] [place], | | | | | | [place] [address] | | | | | | [phone] | | | | | | | [...] | | | | | [place] [address] | | | | | | [phone] | | | | | | | [...] [place] | | | | | | [address] | | | | | | [phone] | | | | | | | [...] | | | | | [place] [address] | | | | | | [phone] | | | | | | | | | | | | Azul Yeboah, | | | | | | MD [address] | | | | | | [place] [address] [place] | | | | | | [place] [address] | | | | | | [phone] | | | | | | | [...] | | | | | | [place] [address] | | | | | | [phone] | | | | | | | | +--------+ + + + + + +------+--------+ + + | Name | Type | Priori | Associated Diagnoses | Date/Time | | | | ty | | | + +------+--------+ + + | ED INFORMATION | YARITZA | Routin | | 02/02/2019 2:00 PM | | EXCHANGE | | e | | PDT | + +------+--------+ + + documented as of this encounter Procedures + +--------+ + + + | Procedure Name | Priori | Date/Time | Associated Diagnosis | Comments | | | ty | | | | + +--------+ + + + | XR FOOT LEFT 3 + VW | STAT | 02/02/2019 | | Results for this | | | | 3:39 PM | | procedure are in the | | | | PDT | | results section. | + +--------+ + + + | ED INFORMATION | Routin | 02/02/2019 | | | | EXCHANGE | e | 2:00 PM | | | | | | PDT | | | + +--------+ + + + +---+--------+ | | | | | Proced | | | ure | | | Note - | | | Destiny, | | | Lab In | | | | | | Hlseve | | | n - | | | | | | 2018 | | | 2:01 | | | PM PDT | | [...] | | | FICATI | | | ON?/ | | | | | | 9 | | | 13:59? | | | NOBLIT | | | , | | | ANDREA | | | C?MRN: | | | | | | [id number] | | | [id number] | | | riteri | | | a Met | | | | | | PDMPSe | | | curity | | | [...] | LUIS FERNANDO, | | | DPM 0 | | | | | | 2018-1 | | | 1-15 | | | TRAMAD | | | OL HCL | | | 50 MG | | | | | | TABLET | | | 20 | | | ERIKA | | | CHAD | | | , DO | | | 0 | | | 2018-1 | | | 0-30 | | | TRAMAD | | | OL HCL | | | 50 MG | | | | | | TABLET | | | 20 | | | ERIKA | | | CHAD | | | , DO | | | 0 | | | 2018-1 | | | 0-19 | | | OXYCOD | | | ONE-AC | | | ETAMIN | | | OPHEN | | | 5-325 | | | 30 | | | JEFFREY | | | | | | MACIE, | | | MD 0 | | | | | | 2018-0 | | | 9-05 | | | TRAMAD | | | OL HCL | | | 50 MG | | | | | | TABLET | | | 30 | | | ERIKA | | | CHAD | | | , DO | | | 0 Rx | | | Summar | | | yMetri | | | c | | | Count | | | CS | | | II-V | | | Rx 0 | | | CS-II | | | Rx 0 | | | Quanti | | | ty | | | Dispen | | | sed | | | 130 | | | Unique | | | | | | Prescr | | | ibers | | | 3 | | | Unique | | | | | | Pharma | | | cies 2 | | | | | | Benzos | | | 0 | | | Opioid | | | s 0 | | | Long | | | [...] | | al 3 | | | [facility] | | | [facility] | | | y | | | [...] | | | int | | | May 4, | | | 2019 | | | [place] | | | [place] | | | [place] | | | [place] | | | [place] | | | Emerge | | | ncy | | | Left | | | Foot | | | Pain | | | Feb | | | [...] | | | St. | | | [place] | | | y H. | | [...] Care | | | | | | Provid | | | [...] | | | ent/e5 | | | [id number] | | | -[id number] | | | [id number] | | | [id number] | | | [id number] | | | [id number] | | | andnbs | | | p | | | PLEASE | | | [...] +---+--------+ documented in this encounter Results XR Foot Left 3 + Vw (02/02/2019 3:39 PM PDT) + + | Specimen | + + | | + + + + + | Impressions | Performed At | + + + | IMPRESSION: No acute process. Dictated by: Braydon Stockton | [facility] | | | | + + + + + + | Narrative | Performed At | + + + | EXAMINATION: XR FOOT LEFT 3 + VW HISTORY: FOOT PAIN | [facility] | | COMPARISON STUDY: December 06, 2018 FINDINGS: Films in multiple | | | projections show no evidence of an acute fracture. No | | | subluxation. No dislocation. Age appropriate bone mineral | | | density. | | + + + + + | Procedure Note | + + | Destiny, Rad Results In - 02/02/2019 4:05 PM PDT EXAMINATION:XR FOOT LEFT 3 + | | VWHISTORY:FOOT PAINCOMPARISON STUDY:December 06, 2018FINDINGS:Films in multiple projections | | show no evidence of an acute fracture. No subluxation. No dislocation. Age | | appropriate bone mineral density.IMPRESSION: IMPRESSION:No acute process.Dictated by: | | Braydon Pryoram | | | |COMPARISON STUDY: | |December 06, 2018 | | | |FINDINGS: | |Films in multiple projections show no evidence of an acute fracture. No subluxation. No dislocation. Age appropriate bone mineral density. | | | |IMPRESSION: | |IMPRESSION: | |No acute process. | | | |Dictated by: Braydon [...] + | Diagnosis | + + | Heel pain, chronic, right - Primary | + + documented in this encounter
--- OUTSIDE RECORDS SUMMARY | ~2020-02-18 | XMS | Encounter Summary ---
Demographics + + + | Address | [address] | | | [place] [address] | + + + | Home Phone | | + + + | Preferred Language | Unknown | + + + | Marital Status | Single | + + + | Congregation Affiliation | Unknown | + + + | Race | Unknown | + + + | Ethnic Group | Unknown | + + + Author + + + | Author | [facility] | | | and [place] | + + + | Organization | [facility] | | [...] Team Providers + +------+ + | Care Hairmasters Manager Name | Role | Phone | + +------+ + | Erika Ernst DO | PCP | | + +------+ + Reason for Visit +--------+ + | Reason | Comments | +--------+ + | Other | FU pain | +--------+ + Encounter Details +--------+ + + + + | Date | Type | Department | Care Team | Description | +--------+ + + + + | 12/25/ | Telephone | [facility] | Emily Mittal DPElaine | Other (FU pain) | | 2019 | | [facility] | [address] [place] | | | | | [address] | [place], [place] | | | | | [place], [place] | [address] | | | | | [address] | | | | | | [phone] | | | +--------+ + + + [...] | | | | | [place] [address] | | | | | | [phone] | | | | | | | | | | | | Julia Fisher, | | | | | | PT | | +--------+ + + + + | 02/18/ | Appointment | Rehabilitation | Erika Ernst, | | | 2019 | | | DO [address] [place] | | | | | | [place] [address] | | | | | | [phone] | | | | | | | | | | | | Genesis Ayon, SUSAN | | +--------+ + + + + | 02/25/ | Office | Primary Care | Erika Ernst, | | | 2019 | Visit | | DO [address] [place] | | | | | | [place] [address] | | | | | | [phone] | | | | | | | | +--------+ + + + + 02/25/ | Appointment | Rehabilitation | Genesis Ayon OT | | | 2019 | | | | | +--------+ + + + + | 02/26/ | Virtual | Rehabilitation | Usha Rodriguez | | | 2019 | Office | | MD Precious [address] | | | | Visit | | [address] [place] | | | | | | [place] [address] | | | | | | [phone] | | | | | | | | +--------+ + + + + | 02/27/ | Appointment | Radiology | Dhara, | | | 2019 | | | [address] | | | [address] [place], | | | | | | [place] [address] | | | | | | [phone] | | | | | | | [...] | | | | | [place] [address] | | | | | | [phone] | | | | | | | [...] [place] | | | | | | [address] | | | | | | [phone] | | | | | | | [...] | | | | | [place] [address] | | | | | | [phone] | | | | | | | | | | | | Azul Yeboah, | | | | | | MD [address] | | | | | | [place] [place] | | | | | | [place] [address] | | | | | | [phone] | | | | | | | [...] | | | | | | [place] [address] | | | | | | [phone] | | | | | | | | +--------+ + + + + documented as of this encounter Visit Diagnoses Not on filedocumented in this encounter"
--- OUTSIDE RECORDS SUMMARY | ~2020-02-18 | XMS | Encounter Summary ---
Demographics + + + | Address | [address] | | | [place] [address] | + + + | Home Phone [...] Providers + +------+ + | Care Manager Risk Management Name | Role | Phone | [...] | | | | s (de | [place], [place] | [place] [address] | | | | | quervain) | [address] | Phone: | | | | | Pain in | Phone: | [phone] | | | | | right wrist | [phone] | Fax: | | | | | Procedures | Fax: | [phone] | | | | | OT TREAT | [phone] | | +--------+--------+ + + + + [...] | | [address] | [place] [address] | wrist pain | | | | [place] | [phone] | | | | | [address] | | | | | | [phone] | Milla Gracia, OT | | +--------+ [...] by: Milla Gracia OT, 08/28/2018 17:52 rew, Milal Bella, OT - 08/20/2018 5:[address] [facility] [address] [place] [address] Occupational Therapy Daily Treatment Note Date: 08/20/2018 [...] #4 OT INTERVENTION 2: TE (32 minutes): Statistical Analyst with 3lb red ultigrip 3x10. Rolling hand [...] in 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, and medical lab specialist and pinch weakness i n the right [...] | | | | | [place] [address] | | | | | | [phone] | | | | | | | | | | | | Julia Fisher, | | | | | | PT | | +--------+ + + + + | 02/18/ | Appointment | Rehabilitation | Erika Ernst, | | | 2019 | | | DO [address] [place] | | | | | | [place] [address] | | | | | | [phone] | | | | | | | | | | | | Genesis Ayon OT | | +--------+ + + + + | 02/25/ | Office | Primary Care | Erika Ernst, | | | 2019 | Visit | | [address] [place] [address] | | | | | | [place] [address] | | | | | | [phone] | | | | | | | [...] | | | | | [place] [address] | | | | | | [phone] | | | | | | | | +--------+ + + + + | 02/27/ | Appointment | Radiology | Dhara, | | | 2019 | | | DWAINE Ross [address] | | | | | [address] [place], | | | | | | [place] [address] | | | | | | [phone] | | | | | | | | +--------+ + + + + | 03/04/ | Appointment | Rehabilitation | Genesis Ayon OT | | | 2019 | | | | | +--------+ + + + + | 03/09/ | Office | Orthopedic Surgery | Jeffrey Gandhi, | | | 2019 | Visit | | [address] | | | | | | [place] [address] | | | | | | [phone] | | | | | | | [...] [place] | | | | | | [address] | | | | | | [phone] | | | | | | | [...] | | | | | [place] [address] | | | | | | [phone] | | | | | | | | | | | | Azul Yeboah, | | | | | | [address] | | | | | | [place] | | | | | | [place] [address] | | | | | | [phone] | | | | | | | [...] | | | | | | [place] [address] | | | | | | [phone] | | | | | | | | +--------+ + + + + documented as of this encounter Visit Diagnoses + + | Diagnosis | + + | Radial styloid tenosynovitis | + + | Right wrist pain Pain in joint, forearm | + + documented in this encounter"
--- OUTSIDE RECORDS SUMMARY | ~2020-02-18 | XMS | Encounter Summary ---
Demographics + + + | Address | [address] | | | [place] [address] | + + + | Home Phone [...] Team Providers + +------+ + | Care Medical Referral Coordinator Name | Role | Phone | + +------+ + PCP | Unavailable | + +------+ + Encounter Details +--------+ + + + + | Date | Type | Department | Care Team | Description | +--------+ + + + + | 11/10/ | [facility] | Caro Zendejas | | | 2015 | Encounter | [facility] | Vale, BOILER TESTING TECHNICIAN [address] | | | | | [facility] [address] | [facility], [place] | | | | | [address] [facility], | [address] | | | | | [place] [address] | [phone] | | | | | [phone] | | | +--------+ + + + [...] | | | | | [place] [address] | | | | | | [phone] | | | | | | | | | | | | Julia Fisher, | | | | | | PT | | +--------+ + + + + | 02/18/ | Appointment | Rehabilitation | Erika Ernst, | | | 2019 | | | DO [address] | | | | | | [place] [address] | | | | | | [phone] | | | | | | | | | | | | Genesis Ayon, OT | | +--------+ + + + + | 02/25/ | Office | Primary Care | Erika Ernst, | | | 2019 | Visit | | DO [address] | | | | | | [place] [address] | | | | | | [phone] | | | | | | | [...] | | | | | [place] [address] | | | | | | [phone] | | | | | | | | +--------+ + + + + | 02/27/ | Appointment | Radiology | Dhara, | | | 2019 | | | DWAINE Ross [address] | | | | | | 4[address] [facility], | | | | | | [place] [address] | | | | | | [phone] | | | | | | | | +--------+ + + + + | 03/04/ | Appointment | Rehabilitation | Genesis Ayon OT | | | 2019 | | | | | +--------+ + + + + | 03/09/ | Office | Orthopedic Surgery | Jeffrey Gandhi, | | | 2019 | Visit | | [address] | | | | | | [place] [address] | | | | | | [phone] | | | | | | | [...] [place] | | | | | | [address] | | | | | | [phone] | | | | | | | [...] | | | | | [place] [address] | | | | | | [phone] | | | | | | | | | | | | Azul Yeboah, | | | | | | MD [address] | | | | | | [place] | | | | | | [place] [address] | | | | | | [phone] | | | | | | | [...] | | | | | | [place] [address] | | | | | | [phone] | | | | | | | | +--------+ + + + + documented as of this encounter Visit Diagnoses Not on filedocumented in this encounter"
--- OUTSIDE RECORDS SUMMARY | ~2020-02-18 | XMS | Encounter Summary ---
Demographics + + + | Address | [address] | | | [place] [address] | + + + | Home Phone [...] Team Providers + +------+ + | Care Computer Art Instructor Name | Role | Phone | [...] + + + + | 05/21/ | Telephone | [place] [facility] | Keith Ernsta Joie, | Blood Pressure | | 2019 | | [facility] | DO [address] | | | | | MEDICAL CLIN[facility] [address] | [place] [address] | | | | | [address] [place], | [phone] | | | | | [place] [address] | | | | | | [phone] | | | +--------+ + + + [...] | | 2019 | | | DO ID | | | | | | [place] [id number] | | | | | | [phone] | | | | | | | | | | | | Julia Fisher, | | | | | | PT | | +--------+ + + + + | 02/18/ | Appointment | Rehabilitation | Erika Ernst, | | | 2019 | | | DO [address] [place] | | | | | | [place] [address] | | | | | | [phone] | | | | | | | | | | | | Genesis Ayon OT | | +--------+ + + + + | 02/25/ | Office | Primary Care | Erika Ernst, | | | 2019 | Visit | | DO [address] [place] | | | | | | [place] [address] | | | | | | [phone] | | | | | | | [...] | | | | | [place] [address] | | | | | | [phone] | | | | | | | | +--------+ + + + + | 02/27/ | Appointment | Radiology | Dhara, | | | 2019 | | | DWAINE Ross [address] | | | | | | 4TH [facility], | | | | | | [place] [address] | | | | | | [phone] | | | | | | | [...] [place] | | | | | | [place] [address] | | | | | | [phone] | | | | | | | [...] [place] | | | | | | [address] | | | | | | [phone] | | | | | | | [...] | | | | | [place] [address] | | | | | | [phone] | | | | | | | | | | | | Azul Yeboah, | | | | | | MD [address] | | | | | | [place] | | | | | | [place] [address] | | | | | | [phone] | | | | | | | [...] | | | | | [address] [place], | | | | | | [place] [address] | | | | | | [phone] | | | | | | | | +--------+ + + + + documented as of this encounter Visit Diagnoses Not on filedocumented in this encounter"
--- OUTSIDE RECORDS SUMMARY | ~2020-02-18 | XMS | Encounter Summary ---
Demographics + + + | Address | [address] | | | [place] [address] | + + + | Home Phone | | + + + | Preferred Language | Unknown | + + + | Marital Status | Single | + + + | Voodoo Affiliation | Unknown | + + + | Race | Unknown | + + + | Ethnic Group | Unknown | + + + Author + + + | Author | [facility] | | | and [place] | + + + | Organization | [facility] | | [...] Team Providers + +------+ + | Care Lacquer Maker Name | Role | Phone | [...] | +--------+ + + + + | 12/12/ | Telephone | [facility] | Usha Rodriguez | Results, Imaging | | 2020 | | OCCUPATIONAL HEALTH | MD Precious [address] | | | | [address] [place] | | | | | [address] [place] | [place] [address] | | | | | [place], [place] | [phone] | | | | | [address] | | | | | | [phone] | | | +--------+ + + + [...] | | | | | [place] [address] | | | | | | [phone] | | | | | | | | | | | | Julia Fisher, | | | | | | PT | | +--------+ + + + + | 02/18/ | Appointment | Rehabilitation | Erika Ernst, | | | 2019 | | | DO [address] | | | | | | [place] [address] | | | | | | [phone] | | | | | | | | | | | | Genesis Ayon OT | | +--------+ + + + + | 02/25/ | Office | Primary Care | Erika Ernst, | | | 2019 | Visit | | DO [address] | | | | | | [place] [address] | | | | | | [phone] | | | | | | | [...] | | | | | [place] [address] | | | | | | [phone] | | | | | | | | +--------+ + + + + | 02/27/ | Appointment | Radiology | Dhara, | | | 2019 | | | DWAINE Ross [address] | | | | | | 4TH [facility], | | | | | | [place] [address] | | | | | | [phone] | | | | | | | | +--------+ + + + + | 03/04/ | Appointment | Rehabilitation | Genesis Ayon OT | | | 2019 | | | | | +--------+ + + + + | 03/09/ | Office | Orthopedic Surgery | Jeffrey Gandhi, | | | 2019 | Visit | | [address] | | | | | | [place] [address] | | | | | | [phone] | | | | | | | [...] [place] | | | | | | [address] | | | | | | [phone] | | | | | | | [...] | | | | | [place] [address] | | | | | | [phone] | | | | | | | | | | | | Azul Yeboah, | | | | | | MD [address] | | | | | | [place] | | | | | | [place] [address] | | | | | | [phone] | | | | | | | [...] | | | | | | [place] [address] | | | | | | [phone] | | | | | | | | +--------+ + + + + documented as of this encounter Visit Diagnoses Not on filedocumented in this encounter"
--- OUTSIDE RECORDS SUMMARY | ~2020-02-18 | XMS | Encounter Summary ---
Demographics + + + | Address | [address] | | | [place] [address] | + + + | Home Phone [...] Team Providers + +------+ + | Care Hardwood Faller Name | Role | Phone | + +------+ + | Erika Ernst DO | PCP | | + +------+ + Reason for Visit +--------+ + | Reason | Comments | +--------+ + | Cough | | +--------+ + Encounter Details +--------+---------+ + + + | Date | Type | Department | Care Team | Description | +--------+---------+ + + + | 08/08/ | Office | [place] [facility] | Harvey, | Moderate asthma with | | 2018 | Visit | [facility] | [facility] [address] | exacerbation, | | | | MEDICAL CLIN[facility] [address] | [address] [place] | unspecified whether | | | | [address] [place], | [place] [address] | persistent (Primary | | | | [place] [address] | [phone] | Dx); Cough | | | | [phone] | | productive of | | | | | | purulent sputum | +--------+---------+ + + + Social History [...] + + + | Blood Pressure | 124/70 | 08/08/2019 3:26 PM | | | | | PST | | + + + + + | Pulse | 80 | 08/08/2019 3:26 PM | | | | | PST | | + + + + + | Temperature | 36.3 C (97.4 F) | 08/08/2019 3:26 PM | | | | | PST | | + + + + + | Respiratory Rate | 18 | 08/08/2019 3:26 PM | | | | | PST | | + + + + + | Oxygen Saturation | 99% | 08/08/2019 3:26 PM | | | | | PST [...] + documented in this encounter Progress Notes Sal[place] Gabriel, DWAINE - 08/08/2019 3:30 PM PSTFormatting of this note might be differe nt from the original. Chief Complaint Patient presents with Cough Assessment 1. Moderate asthma with exacerbation, unspecified whether persistent - cefdinir (OMNICEF) 300 mg capsule; Take 1 capsule by mouth 2 times daily for 7 days. Dis pense: 14 capsule; Refill: 0 - guaiFENesin-codeine (ROBITUSSIN AC) 100-10 mg/5 mL liquid; Take 5-10 mLs by mouth every 6 hours as needed for Cough. Dispense: 120 mL; Refill: 0 2. Cough productive of purulent sputum - cefdinir (OMNICEF) 300 mg capsule; Take 1 capsule by mouth 2 times daily for 7 days. Dis pense: 14 capsule; Refill: 0 - guaiFENesin-codeine (ROBITUSSIN AC) 100-10 mg/5 mL liquid; Take 5-10 mLs by mouth every 6 hours as needed for Cough. Dispense: 120 mL; Refill: 0 Plan - start antibiotic - keep appointment with Bingo Worker next week - use cough medication PRN Subjective: Patient ID: Andrea Suh is a 29 y.o. female who is new to me, presents for the foll owing concern(s): Cough This is a chronic problem. The current episode started 1 to 4 weeks ago. The problem has be en gradually worsening. The cough is productive of purulent sputum. Associated symptoms incl ude headaches, nasal congestion, a sore throat and shortness of breath. The symptoms are agg ravated by lying down. She has tried leukotriene antagonists and oral steroids for the sympt oms. Her past medical history is significant for asthma, bronchitis, environmental allergies and pneumonia. Sinusitis This is a recurrent problem. The problem has been gradually worsening since onset. Associat ed symptoms include congestion, coughing, headaches, shortness of breath, sinus pressure and a sore throat. The treatment provided mild relief. Objective: BP 124/70 | Pulse 80 | Temp 36.3 C (97.4 F) (Temporal) | Resp 18 | LMP 07/15/2019 ( Exact Date) | SpO2 99% | ? No Physical Exam Constitutional: She appears well-developed. Cardiovascular: Normal heart sounds. Pulmonary/Chest: She has decreased breath sounds in the right middle field and the left mid dle field. Social History Socioeconomic History Marital status: Single Spouse name: Not on file Number of children: Not on file Years of education: Not on file Highest education level: Not on file Social Needs Financial resource strain: Not on file Food insecurity - worry: Not on file Food insecurity - inability: Not on file Transportation needs - medical: Not on file Transportation needs - non-medical: Not on file Occupational History Not on file Tobacco Use Smoking status: Never Smoker Smokeless tobacco: Never Used Substance and Sexual Activity Alcohol use: No Alcohol/week: 0.0 oz Frequency: Never Binge frequency: Never Drug use: No Sexual activity: Yes Partners: Male control/protection: Condom Other Topics Concern Not on file Social History Narrative Not on file Past Medical History: Diagnosis Date Allergic rhinitis Anemia Asthma Dysmenorrhea Hypertension Hypothyroid Iron deficiency Obesity ALVAREZ (obstructive sleep apnea) Periodontal disease, unspecified TMJ pain dysfunction syndrome Allergies Allergen Reactions Latex Rash Lexapro [Escitalopram] Palpitations Deblitane [Norethindrone] Hydrocodone Hives Milk Unknown Nickel Dermatitis, Itching and Swelling Uncoded Nonscreenable Allergen Other (See Comments) Other reaction(s): Proclivity to C-diff with certain antibiotics Adhesive & Tape Rash Electronically signed by DWAINE Orozco 08/08/2019 15:47 Note: Part of this report was transcribed using voice recognition software. Every effort wa s made to ensure accuracy. However, inadvertent computerized editor in chief newspaper errors may be pre sent docuarnol [email or web address] this encounter Plan of Treatment +--------+ + + + + | Date | Type | Specialty | Care Team | Description | +--------+ + + + + | 02/18/ | Appointment | Rehabilitation | Erika Ernst, | | | 2019 | | | DO [address] | | | | | | [place] [address] | | | | | | [phone] | | | | | | | | | | | | Julia Fisher, | | | | | | PT | | +--------+ + + + + | 02/18/ | Appointment | Rehabilitation | Erika Ernst, | | | 2019 | | | DO [address] | | | | | | [place] [address] | | | | | | [phone] | | | | | | | | | | | | Genesis Ayon OT | | +--------+ + + + + | 02/25/ | Office | Primary Care | Erika Ernst, | | | 2019 | Visit | | DO [address] | | | | | | [place] [address] | | | | | | [phone] | | | | | | | | +--------+ + + + + | 02/25/ | Appointment | Rehabilitation | Genesis Ayon OT | | | 2019 | | | | | +--------+ + + + + | 02/26/ | Virtual | Rehabilitation | Usha Rodriguez | | 2019 | Office | | Precious, MD [address] | | | | Visit | | [address] [place] | | | | | | [place] [address] | | | | | | [phone] | | | | | | | | +--------+ + + + + | 02/27/ | Appointment | Radiology | Dhara, | | | 2019 | | | DWAINE Ross [address] | | | | | | [address] [facility] [place], | | | | | | [place] [address] | | | | | | [phone] | | | | | | | [...] | | | | | [place] [address] | | | | | | [phone] | | | | | | | [...] [place] | | | | | | [address] | | | | | | [phone] | | | | | | | [...] | | | | | [place] [address] | | | | | | [phone] | | | | | | | | | | | | Azul Yeboah, | | | | | | MD [address] | | | | | | [place] | | | | | | [place] [address] | | | | | | [phone] | | | | | | | [...] | | | | | | [place] [address] | | | | | | [phone] | | | | | | | | +--------+ + + + + documented as of this encounter Visit Diagnoses + + | Diagnosis | + + | Moderate asthma with exacerbation, unspecified whether persistent - Primary | + + | Cough productive of purulent sputum Cough | + + documented in this encounter"
--- OUTSIDE RECORDS SUMMARY | ~2020-02-18 | XMS | Encounter Summary ---
Demographics + + + | Address | [address] | | | [place] [address] | + + + | Home Phone [...] Team Providers + +------+ + | Care Marketing Operations Manager Name | Role | Phone | + +------+ + | Erika Ernst DO | PCP | | + +------+ + Reason for Visit + + + | Reason | Comments | + + + | Medication Related | | + + + Encounter Details +--------+ + + + + | Date | Type | Department | Care Team | Description | +--------+ + + + + | 12/19/ | Telephone | [place] [facility] | Erika Ernst, | Medication Related | | 2019 | | [facility] | DO [address] | | | | | MEDICAL CLINIC [address] | [place] [address] | | | | | [address] [place], | [phone] | | | | | [place] [address] | | | | | | [phone] | | | +--------+ + + + [...] | | | | | [place] [address] | | | | | | [phone] | | | | | | | | | | | | Julia Fisher, | | | | | | PT | | +--------+ + + + + | 02/18/ | Appointment | Rehabilitation | Erika Ernst, | | | 2019 | | | DO [address] [place] | | | | | | [place] [address] | | | | | | [phone] | | | | | | | | | | | | Genesis Ayon OT | | +--------+ + + + + | 02/25/ | Office | Primary Care | Erika Ernst, | | | 2019 | Visit | | DO [address] [place] | | | | | | [place] [address] | | | | | | [phone] | | | | | | | [...] | | | | | [place] [address] | | | | | | [phone] | | | | | | | | +--------+ + + + + | 02/27/ | Appointment | Radiology | Dhara, | | | 2019 | | | DWAINE Ross [address] | | | | | | 4TH [facility], | | | | | | [place] [address] | | | | | | [phone] | | | | | | | [...] [place] | | | | | | [place] [address] | | | | | | [phone] | | | | | | | [...] [place] | | | | | | [address] | | | | | | [phone] | | | | | | | [...] | | | | | [place] [address] | | | | | | [phone] | | | | | | | | | | | | Azul Yeboah, | | | | | | MD [address] | | | | | | [place] | | | | | | [place] [address] | | | | | | [phone] | | | | | | | [...] | | | | | | [place] [address] | | | | | | [phone] | | | | | | | | +--------+ + + + + documented as of this encounter Visit Diagnoses Not on filedocumented in this encounter"
--- OUTSIDE RECORDS SUMMARY | ~2020-02-18 | XMS | Encounter Summary ---
Demographics + + + | Address | [address] | | | [place] [address] | + + + | Home Phone [...] Team Providers + +------+ + | Care Environmental Health Safety Manager Name | Role | Phone | + +------+ + | Erika Ernst DO | PCP | | + +------+ + Reason for Referral Evaluate & Treat (Routine) +--------+ + + + + + | Status | Reason | Specialty | Diagnoses / | Referred By | Referred To | | | | | Procedures | Contact | Contact | +--------+ + + + + + | Closed | Specialty | Otolaryngolog | Diagnoses | Klever, | [facility] | | | Services | y | Left | Erika Salter DO | [address] | | | Required | | thyroid | [address] | [address] [place] | | | | | nodule | [place], | [place] | | | | | Procedures | [place] [address] | [place], [place] | | | | | [place] | Phone: | [address] | | | | | | [phone] | Phone: | | | | | | Fax: | [phone] | | | | | | [phone] | Fax: | | | | | | | [phone] | +--------+ + + + + + Encounter Details +--------+ + + + + | Date | Type | Department | Care Team | Description | +--------+ + + + + | 07/02/ | Orders Only | [place] [facility] | Erika Ernst, | Left thyroid nodule | | 2019 | | [facility] | DO [address] | (Primary Dx) | | | | MEDICAL CLINIC [address] | [place] [address] | | | | | [address] [facility] [place], | [phone] | | | | | [place] [address] | | | | | | [phone] | | | +--------+ + + + [...] | 2019 | | | DO [address] | | | | | | [place] [address] | | | | | | [phone] | | | | | | | | | | | | Julia Fisher, | | | | | | PT | | +--------+ + + + + | 02/18/ | Appointment | Rehabilitation | Erika Ernst, | | | 2019 | | | DO [address] [place] | | | | | | [place] [address] | | | | | | [phone] | | | | | | | | | | | | Genesis Ayon OT | | +--------+ + + + + | 02/25/ | Office | Primary Care | Erika Ernst, | | | 2019 | Visit | | DO [address] [place] | | | | | | [place] [address] | | | | | | [phone] | | | | | | | [...] | | | | | [place] [address] | | | | | | [phone] | | | | | | | | +--------+ + + + + | 02/27/ | Appointment | Radiology | Dhara, | | | 2019 | | | DWAINE Ross [address] | | | | | | [address] [place], | | | | | | [place] [address] | | | | | | [phone] | | | | | | | [...] | | | | | [place] [address] | | | | | | [phone] | | | | | | | [...] [place] | | | | | | [address] | | | | | | [phone] | | | | | | | [...] | | | | | [place] [address] | | | | | | [phone] | | | | | | | | | | | | Azul Yeboah, | | | | | | MD [address] | | | | | | [place] | | | | | | [place] [address] | | | | | | [phone] | | | | | | | [...] | | | | | | [place] [address] | | | | | | [phone] | | | | | | | | +--------+ + + + + + + +--------+ + + | Name | Type | Priori | Associated Diagnoses | Order Schedule | | | | ty | | | + + +--------+ + + | * [place] [facility] | Outpatient | Routin | Left thyroid | 1 Occurrences | | [facility] - [facility] | Referral | e | nodule | starting 07/02/2019 | | Referral | | | | until 07/02/2020 | + + +--------+ + + documented as of this encounter Visit Diagnoses + + | Diagnosis | + + | Left thyroid nodule - Primary Nontoxic uninodular goiter | + + documented in this encounter"
--- OUTSIDE RECORDS SUMMARY | ~2020-02-18 | XMS | Encounter Summary ---
Demographics + + + | Address | [address] | | | [place] [address] | + + + | Home Phone [...] Team Providers + +------+ + | Care Chief Scientist Name | Role | Phone | + [...] | [facility] | [facility], [facility] [address] | exacerbation, | | | | [facility] [address] | [address] [place] | unspecified whether | | | | [address] [place], | [place] [address] | persistent (Primary | | | | [place] [address] | [phone] | Dx); Cough | | | | [phone] | | productive of | | | [...] - start antibiotic - keep appointment with Soda Fountain Operator next week - use cough medication PRN [...] made to ensure accuracy. However, inadvertent computerized business systems lead errors may be pre sent docuarnol mabry this encounter Plan of Treatment +--------+ + + + + | Date | Type | Specialty | Care Team | Description | +--------+ + + + + | 02/18/ | Appointment | Rehabilitation | Erika Ernst, | | | 2019 | | | DO [address] | | | | | | [place] [address] | | | | | | [phone] | | | | | | | | | | | | Julia Fisher, | | | | | | PT | | +--------+ + + + + | 02/18/ | Appointment | Rehabilitation | Erika Ernst, | | | 2019 | | | DO [address] | | | | | | [place] [address] | | | | | | [phone] | | | | | | | | | | | | Genesis Ayon OT | | +--------+ + + + + | 02/25/ | Office | Primary Care | Erika Ernst, | | | 2019 | Visit | | DO [address] | | | | | | [place] [address] | | | | | | [phone] | | | | | | | [...] | | | | | | [place] [address] | | | | | | [phone] | | | | | | | | +--------+ + + + + | 02/27/ | Appointment | Radiology | Dhara, | | | 2019 | | | DWAINE Ross [address] | | | | | | [facility] [place], | | | | | | [place] [address] | | | | | | [phone] | | | | | | | [...] | | | | | [place] [address] | | | | | | [phone] | | | | | | | [...] [place] | | | | | | [address] | | | | | | [phone] | | | | | | | [...] | | | | | [place] [address] | | | | | | [phone] | | | | | | | | | | | | Azul Yeboah, | | | | | | MD [address] | | | | | | [place] | | | | | | [place] [address] | | | | | | [phone] | | | | | | | [...] | | | | | | [place] [address] | | | | | | [phone] | | | | | | | | +--------+ + + + + documented as of this encounter Visit Diagnoses + + | Diagnosis | + + | Moderate asthma with exacerbation, unspecified whether persistent - Primary | + + | Cough productive of purulent sputum Cough | + + documented in this encounter"
--- OUTSIDE RECORDS SUMMARY | ~2020-02-18 | XMS | Encounter Summary ---
Demographics + + + | Address | [address] | | | [place] [address] | + + + | Home Phone [...] + + + | Author | [facility] | | | and [place] | + + + | Organization | [facility] | | | [...] Team Providers + +------+ + | Care Garden Machinery Mechanic Name | Role | Phone | + +------+ + | Erika Ernst DO | PCP | | + +------+ + Reason for Visit + + + | Reason | Comments | + + + | Blood Pressure | low | + + + Encounter Details +--------+ + + + + | Date | Type | Department | Care Team | Description | +--------+ + + + + | 09/06/ | Telephone | [place] [facility] | Erkia Ernst, | Blood Pressure (low) | | 2019 | | [facility] | DO [address] | | | | | MEDICAL CLINIC [address] | [place] [address] | | | | | [address] [place], | [phone] | | | | | [place] [address] | | | | | | [phone] | | | +--------+ + + + [...] | | | | | [place] [address] | | | | | | [phone] | | | | | | | | | | | | Julia Fisher, | | | | | | PT | | +--------+ + + + + | 02/18/ | Appointment | Rehabilitation | Erika Ernst, | | | 2019 | | | DO [address] | | | | | | [place] [address] | | | | | | [phone] | | | | | | | | | | | | Genesis Ayon OT | | +--------+ + + + + | 02/25/ | Office | Primary Care | Erika Ernst, | | | 2019 | Visit | | DO [address] | | | | | | [place] [address] | | | | | | [phone] | | | | | | | [...] | | | | | [place] [address] | | | | | | [phone] | | | | | | | | +--------+ + + + + | 02/27/ | Appointment | Radiology | Dhara, | | | 2019 | | | DWAINE Ross [address] | | | | | | [address] [facility], | | | | | | [place] [address] | | | | | | [phone] | | | | | | | [...] [place] | | | | | | [place] [address] | | | | | | [phone] | | | | | | | [...] [place] | | | | | | [address] | | | | | | [phone] | | | | | | | [...] | | | | | [place] [address] | | | | | | [phone] | | | | | | | | | | | | Azul Yeboah, | | | | | | MD [address] | | | | | | [place] | | | | | | [place] [address] | | | | | | [phone] | | | | | | | [...] | | | | | [address] [place], | | | | | | [place] [address] | | | | | | [phone] | | | | | | | | +--------+ + + + + documented as of this encounter Visit Diagnoses Not on filedocumented in this encounter"
--- OUTSIDE RECORDS SUMMARY | ~2020-02-18 | XMS | Encounter Summary ---
Demographics + + + | Address | [address] | | | [place] [address] | + + + | Home Phone [...] Team Providers + +------+ + | Care Fashion Editor Name | Role | Phone | + +------+ + PCP | Unavailable | + +------+ + Encounter Details +--------+ + + + + | Date | Type | Department | Care Team | Description | +--------+ + + + + | 01/18/ | [facility] | [facility] | Amaya Varner NP | | | 2017 | Encounter | [facility] | [address] | | | | | MEDICAL CLINIC [address] | [place], [place] | | | | | [address] [place], | [address] | | | | | [place] [address] | [phone] | | | | | [phone] | | | +--------+ + + + [...] | | | | | [place] [address] | | | | | | [phone] | | | | | | | | | | | | Julia Fisher, | | | | | | PT | | +--------+ + + + + | 02/18/ | Appointment | Rehabilitation | Erika Ernst, | | | 2019 | | | DO [address] | | | | | | [place] [address] | | | | | | [phone] | | | | | | | | | | | | Genesis Ayon, SUSAN | | +--------+ + + + + | 02/25/ | Office | Primary Care | Erika Ernst, | | | 2019 | Visit | | DO [address] [place] [address] | | | | | | [place] [address] | | | | | | [phone] | | | | | | | [...] | | | | | [place] [address] | | | | | | [phone] | | | | | | | | +--------+ + + + + | 02/27/ | Appointment | Radiology | Dhara, | | | 2019 | | | DWAINE Ross [address] | | | | | | [address] [place], | | | | | | [place] [address] | | | | | | [phone] | | | | | | | | +--------+ + + + + | 03/04/ | Appointment | Rehabilitation | Genesis Ayon OT | | | 2019 | | | | | +--------+ + + + + | 03/09/ | Office | Orthopedic Surgery | Jeffrey Gandhi, | | | 2019 | Visit | | [address] | | | | | | [facility] [place] [address] | | | | | | [phone] | | | | | | | [...] [place] | | | | | | [address] | | | | | | [phone] | | | | | | | [...] | | | | | [place] [address] | | | | | | [phone] | | | | | | | | | | | | Azul Yeboah, | | | | | | MD [address] | | | | | | [place] | | | | | | [place] [address] | | | | | | [phone] | | | | | | | [...] | | | | | | [place] [address] | | | | | | [phone] | | | | | | | | +--------+ + + + + documented as of this encounter Visit Diagnoses Not on filedocumented in this encounter"
--- OUTSIDE RECORDS SUMMARY | ~2020-02-18 | XMS | Encounter Summary ---
Demographics + + + | Address | [address] | | | [place] [address] | + + + | Home Phone [...] Providers + +------+ + | Care Accounts Receivable Manager Name | Role | Phone | + +------+ + | Erika Ernst DO | PCP | | + +------+ + Reason for Visit +--------+ + | Reason | Comments | +--------+ + | Other | clarification on medication before surgery | +--------+ + Encounter Details +--------+ + + + + | Date | Type | Department | Care Team | Description | +--------+ + + + + | 03/18/ | Telephone | [place] [facility] | Inocencio Noriega | Other (clarification | | 2019 | | [facility] | MD [address] | on medication | | | | [address] [place] | [address] [place] | before surgery) | | | | [place] | [place] [address] | | | | | [address] | [phone] | | | | | [phone] | | | +--------+ + + + [...] | | | | | [place] [address] | | | | | | [phone] | | | | | | | | | | | | Julia Fisher, | | | | | | PT | | +--------+ + + + + | 02/18/ | Appointment | Rehabilitation | Erika Ernst, | | | 2019 | | | DO [address] | | | | | | [place] [address] | | | | | | [phone] | | | | | | | | | | | | Genesis Ayon, OT | | +--------+ + + + + | 02/25/ | Office | Primary Care | Erika Ernst, | | | 2019 | Visit | | DO [address] | | | | | | [place] [address] | | | | | | [phone] | | | | | | | [...] | | | | | [place] [address] | | | | | | [phone] | | | | | | | | +--------+ + + + + | 02/27/ | Appointment | Radiology | Dhara, | | | 2019 | | | [address] | | | | | | [address] [place], | | | | | | [place] [address] | | | | | | [phone] | | | | | | | | +--------+ + + + + | 03/04/ | Appointment | Rehabilitation | Genesis Ayon OT | | | 2019 | | | | | +--------+ + + + + | 03/09/ | Office | Orthopedic Surgery | Jeffrey Gandhi, | | | 2019 | Visit | | [address] [facility] | | | | | | [place] [address] | | | | | | [phone] | | | | | | | [...] [place] | | | | | | [address] | | | | | | [phone] | | | | | | | [...] | | | | | [place] [address] | | | | | | [phone] | | | | | | | | | | | | Azul Yeboah, | | | | | | [address] | | | | | | [place] | | | | | | [place] [address] | | | | | | [phone] | | | | | | | [...] | | | | | | [place] [address] | | | | | | [phone] | | | | | | | | +--------+ + + + + documented as of this encounter Visit Diagnoses Not on filedocumented in this encounter"
--- OUTSIDE RECORDS SUMMARY | ~2020-02-18 | XMS | Encounter Summary ---
Demographics + + + | Address | [address] | | | [place] [address] | + + + | Home Phone | | + + + | Preferred Language | Unknown | + + + | Marital Status | Single | + + + | Presybeterian Affiliation | Unknown | + + + | Race | Unknown | + + + | Ethnic Group | Unknown | + + + Author + + + | Author | [facility] | | | and [place] | + + + | Organization | [facility] | | | [...] Team Providers + +------+ + | Care Oral Communication Instructor Name | Role | Phone | [...] | +--------+ + + + + | 09/27/ | Telephone | [place] [facility] | Erika Ernst, | Lab Results | | 2019 | | [facility] | DO [address] | | | | | MEDICAL CLINIC 506 | [place] [address] | | | | | [address] [place], | [phone] | | | | | [place] [address] | | | | | | [phone] | | | +--------+ + + + [...] | | | | | [place] [address] | | | | | | [phone] | | | | | | | | | | | | Forma, Julia M, | | | | | | PT | | +--------+ + + + + | 02/18/ | Appointment | Rehabilitation | Erika Ernst, | | | 2019 | | | DO [address] | | | | | | [place] [address] | | | | | | [phone] | | | | | | | | | | | | Genesis Ayon OT | | +--------+ + + + + | 02/25/ | Office | Primary Care | Erika Ernst, | | | 2019 | Visit | | DO [address] | | | | | | [place] [address] | | | | | | [phone] | | | | | | | [...] | | | | | [place] [address] | | | | | | [phone] | | | | | | | | +--------+ + + + + | 02/27/ | Appointment | Radiology | Dhara, | | | 2019 | | | DWAINE Ross [address] | | | | | | 4TH [facility], | | | | | | [place] [address] | | | | | | [phone] | | | | | | | [...] ST | | | | | | [place] [address] | | | | | | [phone] | | | | | | | [...] [place] | | | | | | [address] | | | | | | [phone] | | | | | | | [...] | | | | | [place] [address] | | | | | | [phone] | | | | | | | | | | | | Azul Yeboah, | | | | | | MD [address] | | | | | | [place] | | | | | | [place] [address] | | | | | | [phone] | | | | | | | [...] | | | | | | [place] [address] | | | | | | [phone] | | | | | | | | +--------+ + + + + documented as of this encounter Visit Diagnoses Not on filedocumented in this encounter"
--- OUTSIDE RECORDS SUMMARY | ~2020-02-18 | XMS | Encounter Summary ---
Demographics + + + | Address | [address] | | | [place] [address] | + + + | Home Phone [...] Team Providers + +------+ + | Care Neighborhood Service Center Director Name | Role | Phone | + +------+ + | Erika Ernst DO | PCP | | + +------+ + Encounter Details +--------+ + + + + | Date | Type | Department | Care Team | Description | +--------+ + + + + | 10/25/ | Orders Only | [place] [facility] | Erika Ernst, | Vitamin D deficiency | | 2020 | | [facility] | DO [address] | (Primary Dx) | | | | MEDICAL CLIN[facility] [address] | [place] [address] | | | | | [address] [place], | [phone] | | | | | [place] [address] | | | | | | [phone] | | | +--------+ + + + [...] | | | | | [place] [address] | | | | | | [phone] | | | | | | | | | | | | Julia Fisher, | | | | | | PT | | +--------+ + + + + | 02/18/ | Appointment | Rehabilitation | Erika Ernst, | | | 2019 | | | DO [address] [place] | | | | | | [place] [address] | | | | | | [phone] | | | | | | | | | | | | Genesis Ayon OT | | +--------+ + + + + | 02/25/ | Office | Primary Care | Erika Ernst, | | | 2019 | Visit | | DO [address] | | | | | | [place] [address] | | | | | | [phone] | | | | | | | [...] | | | | | [place] [address] | | | | | | [phone] | | | | | | | | +--------+ + + + + | 02/27/ | Appointment | Radiology | Dhara, | | | 2019 | | | [address] | | | | | | 4TH [facility], | | | | | | [place] [address] | | | | | | [phone] | | | | | | | [...] | | | | | [place] [address] | | | | | | [phone] | | | | | | | [...] [place] | | | | | | [address] | | | | | | [phone] | | | | | | | [...] | | | | | [place] [address] | | | | | | [phone] | | | | | | | | | | | | Azul Yeboah, | | | | | | MD [address] | | | | | | [place] | | | | | | [place] [address] | | | | | | [phone] | | | | | | | [...] | | | | | | [place] [address] | | | | | | [phone] | | | | | | | | +--------+ + + + + documented as of this encounter Visit Diagnoses + + | Diagnosis | + + | Vitamin D deficiency - Primary Unspecified vitamin D deficiency | + + documented in this encounter"
--- OUTSIDE RECORDS SUMMARY | ~2020-02-18 | XMS | Encounter Summary ---
Demographics + + + | Address | [address] | | | [place] [address] | + + + | Home Phone | | + + + | Preferred Language | Unknown | + + + | Marital Status | Single | + + + | Denominational Affiliation | Unknown | + + + | Race | Unknown | + + + | Ethnic Group | Unknown | + + + Author + + + | Author | [facility] | | | and [place] | + + + | Organization | [facility] | | | and [place] | + + + | Address | Unknown | + + + | Phone | Unavailable | + + + Support + + +---------+ + | Name | Relationship | Address | Phone | + + +---------+ + | Bhavan Boss | ECON | Unknown | | + + +---------+ + Care Team Providers + +------+ + | Care Automatic Corn Grinder Operator Name | Role | Phone | + +------+ + | Erika Ernst DO | PCP | | + +------+ + Encounter Details +--------+ + + + + | Date | Type | Department | Care Team | Description | +--------+ + + + + | 05/02/ | [facility] | [place] [facility] | Erika Ernst, | Acute right ankle | | 2019 | Encounter | [facility] [address] | DO [address] | pain | | | | [address] [place] | [place] [address] | | | | | [place], [place] | [phone] | | | | | [address] | | | | | | [phone] | | | +--------+ + + + [...] | 04/12/20 | | | (VITAMIN D3) 74158 | mouth Once a week | tablet [...] | | | | | [place] [address] | | | | | | [phone] | | | | | | | | | | | | Julia Fisher, | | | | | | PT | | +--------+ + + + + | 02/18/ | Appointment | Rehabilitation | Erika Ernst, | | | 2019 | | | DO [address] | | | | | | [place] [address] | | | | | | [phone] | | | | | | | | | | | | Genesis Ayon OT | | +--------+ + + + + | 02/25/ | Office | Primary Care | Erika Ernst, | | | 2019 | Visit | | DO [address] | | | | | | [place] [address] | | | | | | [phone] | | | | | | | [...] | | | | | [place] [address] | | | | | | [phone] | | | | | | | | +--------+ + + + + | 02/27/ | Appointment | Radiology | Dhara, | | | 2019 | | | [address] | | | | | | [address] [place], | | | | | | [place] [address] | | | | | | [phone] | | | | | | | | +--------+ + + + + | 03/04/ | Appointment | Rehabilitation | Genesis Ayon OT | | | 2019 | | | | | +--------+ + + + + | 03/09/ | Office | Orthopedic Surgery | Jeffrey Gandhi, | | 2019 | Visit | | [address] [facility] | | | | | | [place] [address] | | | | | | [phone] | | | | | | | [...] [place] | | | | | | [address] | | | | | | [phone] | | | | | | | [...] | | | | | [place] [address] | | | | | | [phone] | | | | | | | | | | | | Azul Yeboah, | | | | | | [address] | | | | | | [place] | | | | | | [place] [address] | | | | | | [phone] | | | | | | | [...] | | | | | | [place] [address] | | | | | | [phone] | | | | | | | | +--------+ + + + + documented as of this encounter Procedures + +--------+ + + + | Procedure Name | Priori | Date/Time | Associated Diagnosis | Comments | | | ty | | | | + +--------+ + + + | XR ANKLE RIGHT 3 + | Routin | 05/02/2019 | Acute right ankle | Results for this | | VW | e | 8:38 AM | pain | procedure are in the | | | | PDT | | results section. | + +--------+ + + + documented in this encounter Results XR Ankle Right 3 + Vw (05/02/2019 8:38 AM PDT) + + | Specimen | + + | | + + + + + | Impressions | Performed At | + + + | IMPRESSION: No acute process. Dictated by: Braydon Stockton | [facility] | | | | + + + + + + | Narrative | Performed At | + + + | EXAMINATION: XR ANKLE RIGHT 3 + VW HISTORY: fall with | [facility] | | increased right ankle pain COMPARISON STUDY: None FINDINGS: | | | Films in multiple projections show medial ankle soft tissue swelling. | | | No acute fracture is identified. No subluxation. No dislocation. | | | Ankle mortise is intact. Age appropriate bone mineral density. | | + + + + + | Procedure Note | + + | Mitchel, Rad Results In - 05/02/2019 9:49 AM PDT EXAMINATION:XR ANKLE RIGHT 3 + | | VWHISTORY:fall with increased right ankle painCOMPARISON STUDY:NoneFINDINGS:Films in | | multiple projections show medial ankle soft tissue swelling. No acute fracture is | | identified. No subluxation. No dislocation. Ankle mortise is intact. Age appropriate | | bone mineral density.IMPRESSION: IMPRESSION:No acute process.Dictated by: Braydon | | Konstantinam | |COMPARISON STUDY: | |None | | | |FINDINGS: | |Films in multiple projections show medial ankle soft tissue swelling. No acute fracture is identified. No subluxation. No dislocation. Ankle mortise is intact. Age appropriate coco ne mineral density. | | | |IMPRESSION: | [...] | Diagnosis | + + | Acute right ankle pain | + + documented in this encounter"
--- OUTSIDE RECORDS SUMMARY | ~2020-02-18 | XMS | Encounter Summary ---
Demographics + + + | Address | [address] | | | [place] [address] | + + + | Home Phone [...] Team Providers + +------+ + | Care Skein Bander Name | Role | Phone | + [...] Description | +--------+--------+ + + + | 12/19/ | Refill | [place] [facility] | Erika Ernst, | Medication Refill | | 2019 | | [facility] | DO [address] | | | | | MEDICAL CLIN[facility] [address] | [place] [address] | | | | | [address] [place], | [phone] | | | | | [place] [address] | | | | | | [phone] | | | +--------+--------+ + + + [...] | | | | | [place] [address] | | | | | | [phone] | | | | | | | | | | | | Julia Fisher, | | | | | | PT | | +--------+ + + + + | 02/18/ | Appointment | Rehabilitation | Erika Ernst, | | | 2019 | | | DO [address] | | | | | | [place] [address] | | | | | | [phone] | | | | | | | | | | | | Genesis Ayon OT | | +--------+ + + + + | 02/25/ | Office | Primary Care | Erika Ernst, | | | 2019 | Visit | | DO [address] | | | | | | [place] [address] | | | | | | [phone] | | | | | | | [...] | | | | | | [place] [address] | | | | | | [phone] | | | | | | | | +--------+ + + + + | 02/27/ | Appointment | Radiology | Dhara, | | | 2019 | | | [address] | | | | | | [address]TH [facility], | | | | | | [place] [address] | | | | | | [phone] | | | | | | | [...] [place] | | | | | | [place] [address] | | | | | | [phone] | | | | | | | [...] [place] | | | | | | [address] | | | | | | [phone] | | | | | | | [...] | | | | | [place] [address] | | | | | | [phone] | | | | | | | | | | | | Azul Yeboah, | | | | | | MD [address] | | | | | | [place] | | | | | | [place] [address] | | | | | | [phone] | | | | | | | [...] | | | | | | [place] [address] | | | | | | [phone] | | | | | | | | +--------+ + + + + documented as of this encounter Visit Diagnoses Not on filedocumented in this encounter"
--- OUTSIDE RECORDS SUMMARY | ~2020-02-18 | XMS | Encounter Summary ---
Demographics + + + | Address | [address] | | | [place] [address] | + + + | Home Phone [...] + + | Author | [facility] | | | and [place] | + + + | Organization | [facility] | | | [...] Team Providers + +------+ + | Care Horticultural Nursery Assistant Name | Role | Phone | + +------+ + PCP | Unavailable | + +------+ + Encounter Details +--------+ + + + + | Date | Type | Department | Care Team | Description | +--------+ + + + + | 04/21/ | Hospital | [place] [facility] | Tyrese Kee | | | 2015 | Encounter | [facility] | MD [address] | | | | | C[address] | [address] | | | | | [address] [place], [place] | [place] [address] | | | | | [address] | [phone] | | | | | [phone] | | | +--------+ + + + [...] | | | | | [place] [address] | | | | | | [phone] | | | | | | | | | | | | Julia Fisher, | | | | | | PT | | +--------+ + + + + | 02/18/ | Appointment | Rehabilitation | Erika Ernst, | | | 2019 | | | DO [address] [place] | | | | | | [place] [address] | | | | | | [phone] | | | | | | | | | | | | Genesis Ayon OT | | +--------+ + + + + | 02/25/ | Office | Primary Care | Erika Ernst, | | | 2019 | Visit | | DO [address] | | | | | | [place] [address] | | | | | | [phone] | | | | | | | [...] | | | | | [place] [address] | | | | | | [phone] | | | | | | | | +--------+ + + + + | 02/27/ | Appointment | Radiology | Dhara, | | | 2019 | | | [address] | | | | | | [address] [facility], | | | | | | [place] [address] | | | | | | [phone] | | | | | | | [...] MOORE | | | | | | [place] [address] | | | | | | [phone] | | | | | | | [...] [place] | | | | | | [address] | | | | | | [phone] | | | | | | | [...] | | | | | [place] [address] | | | | | | [phone] | | | | | | | | | | | | Azul Yeboah, | | | | | | MD [address] | | | | | | [address] [place] | | | | | | [place] [address] | | | | | | [phone] | | | | | | | [...] | | | | | | [place] [address] | | | | | | [phone] | | | | | | | | +--------+ + + + + documented as of this encounter Visit Diagnoses Not on filedocumented in this encounter"
--- OUTSIDE RECORDS SUMMARY | ~2020-02-18 | XMS | Encounter Summary ---
Demographics + + + | Address | [address] | | | [place] [address] | + + + | Home Phone | | + + + | Preferred Language | Unknown | + + + | Marital Status | Single | + + + | Uatsdin Affiliation | Unknown | + + + | Race | Unknown | + + + | Ethnic Group | Unknown | + + + Author + + + | Author | [facility] | | | and [place] | + + + | Organization | [facility] | | | [...] Team Providers + +------+ + | Care Carpet Mechanic Name | Role | Phone | + +------+ + | Erika Ernst DO | PCP | | + +------+ + Reason for Visit + + + | Reason | Comments | + + + | Lori's Comp | | + + + Encounter Details +--------+ + + + + | Date | Type | Department | Care Team | Description | +--------+ + + + + | 07/18/ | Clinical | [place] [facility] | Erika Ernst, | | | 2018 | Support | [facility] | DO [address] | | | | | MEDICAL CLINIC [address] | [place] [address] | | | | | [address] [place], | [phone] | | | | | [place] [address] | | | | | | [phone] | | | +--------+ + + + [...] documented as of this encounter Progress Notes Layla Barrios LPN - 07/18/2019 3:45 PM PDTPt came in to clinic for a nurse talk. I b rought her back to exam room and she stated that Dr. Noriega told her he has done all he can d o for her and he is unable to find the source of the pain she is still having. "Dr. Noriega a sked her to talk with Dr. Ernst and ask Dr. Ernst if she will take over management of the workman's comp clain". Pt also stated she is still undergoing occupational therapy with [facility] at [facility] and has only regained 50% of her strength back. Please advise. I told pt we would give her a call back after we discussed with Dr. Ernst. Thanks [facility] (Can OT manage workman comp claim?) Electronically signed by Layla Barrios LPN at 9 7:16 AM PDTdocumented in this encounter Plan of Treatment +--------+ + + + + | Date | Type | Specialty | Care Team | Description | +--------+ + + + + | 02/18/ | Appointment | Rehabilitation | Erika Ernst, | | | 2019 | | | DO [address] [place] | | | | | | [place] [address] | | | | | | [phone] | | | | | | | | | | | | Julia Fisher, | | | | | | PT | | +--------+ + + + + | 02/18/ | Appointment | Rehabilitation | Erika Ernst, | | | 2019 | | | DO [address] [place] | | | | | | [place] [address] | | | | | | [phone] | | | | | | | | | | | | Genesis Ayon OT | | +--------+ + + + + | 02/25/ | Office | Primary Care | Erika Ernst, | | | 2019 | Visit | | DO [address] [place] | | | | | | [place] [address] | | | | | | [phone] | | | | | | | [...] | | | | | | [place] [address] | | | | | | [phone] | | | | | | | | +--------+ + + + + | 02/27/ | Appointment | Radiology | Dhara, | | | 2019 | | | DWAINE Ross [address] | [address] [place], | | | | | | [place] [address] | | | | | | [phone] | | | | | | | | +--------+ + + + + | 03/04/ | Appointment | Rehabilitation | Genesis Ayon OT | | | 2019 | | | | | +--------+ + + + + | 03/09/ | Office | Orthopedic Surgery | Jeffrey Gandhi, | | | 2019 | Visit | | [place] [address] | | | | | | [place] [address] | | | | | | [phone] | | | | | | | [...] [place] | | | | | | [address] | | | | | | [phone] | | | | | | | [...] | | | | | [place] [address] | | | | | | [phone] | | | | | | | | | | | | Azul Yeboah, | | | | | | MD [address] | | | | | | [place] | | | | | | [place] [address] | | | | | | [phone] | | | | | | | [...] | | | | | | [place] [address] | | | | | | [phone] | | | | | | | | +--------+ + + + + documented as of this encounter Visit Diagnoses Not on filedocumented in this encounter
--- OUTSIDE RECORDS SUMMARY | ~2020-02-18 | XMS | Encounter Summary ---
Demographics + + + | Address | [address] | | | [place] [address] | + + + | Home Phone | | + + + | Preferred Language | Unknown | + + + | Marital Status | Single | + + + | Jewish Affiliation | Unknown | + + + | Race | Unknown | + + + | Ethnic Group | Unknown | + + + Author + + + | Author | [facility] | | | and [place] | + + + | Organization | [facility] | | [...] Team Providers + +------+ + | Care Administrative Support Assoc Name | Role | Phone | + [...] | +--------+ + + + + | 01/29/ | Telephone | [place] [facility] | Julia Fisher | Follow-up | | 2019 | | HOSPITAL THERAPY PT | M, PT | | | | | [address] | | | | | | [place] | | | | | | [address] | | | | | | [phone] | | | +--------+ + + + [...] | | | | | [place] [address] | | | | | | [phone] | | | | | | | | | | | | Julia Fisher, | | | | | | PT | | +--------+ + + + + | 02/18/ | Appointment | Rehabilitation | Erika Ernst, | | | 2019 | | | DO [address] [place] | | | | | | [place] [address] | | | | | | [phone] | | | | | | | | | | | | Genesis [facility]yon OT | | +--------+ + + + + | 02/25/ | Office | Primary Care | Erika Ernst, | | | 2019 | Visit | | DO [address] [place] | | | | | | [place] [address] | | | | | | [phone] | | | | | | | [...] | | | | | [place] [address] | | | | | | [phone] | | | | | | | | +--------+ + + + + | 02/27/ | Appointment | Radiology | Dhara, | | | 2019 | | | DWAINE Ross [address] | | | [address] [place], | | | | | | [place] [address] | | | | | | [phone] | | | | | | | [...] | | | | [place] [address] | | | | | | [phone] | | | | | | | [...] [place] | | | | | | [address] | | | | | | [phone] | | | | | | | | +--------+ + + + + | 03/25/ | Appointment | Rehabilitation | Genesis Ayon OT | | 2019 | | | | | +--------+ + + + + | 04/08/ | Office | Neurology | Erika Ernst, | | 2019 | Visit | | DO [address] [place] | | | | | | [place] [address] | | | | | | [phone] | | | | | | | | | | | | Azul Yeboah, | | | | | | [address] | | | | | | [place] | | | | | | [place] [address] | | | | | | [phone] | | | | | | | [...] | | | | | | [place] [address] | | | | | | [phone] | | | | | | | | +--------+ + + + + documented as of this encounter Visit Diagnoses Not on filedocumented in this encounter"
--- OUTSIDE RECORDS SUMMARY | ~2020-02-18 | XMS | Encounter Summary ---
Demographics + + + | Address | [address] | | | [place] [address] | + + + | Home Phone [...] Team Providers + +------+ + | Care Hedge Fund Principal Name | Role | Phone | + +------+ + | Erika Ernst DO | PCP | | + +------+ + Encounter Details +--------+ + + + + | Date | Type | Department | Care Team | Description | +--------+ + + + + | 10/23/ | [facility] | Erika Ernst, | Breast cancer | | 2020 | Encounter | Hospital [facility] | DO [address] | screening, high risk | | | | Mammography [address] | [place] [address] | patient; Breast | | | | [address] [place] | [phone] | cancer screening by | | | | [place], [place] | | mammogram | | | | [address] | | | | | | [phone] | | | +--------+ + + + [...] 2 puffs by | | 1 | 08/15/ | | | MCG/ACT inhaler | mouth [...] | | 2019 | | | DO IN | | | | | | [place] [address] | | | | | | [phone] | | | | | | | | | | | | Julia Fisher, | | | | | | PT | | +--------+ + + + + | 02/18/ | Appointment | Rehabilitation | Erika Ernst, | | | 2019 | | | DO [address] [place] | | | | | | [place] [address] | | | | | | [phone] | | | | | | | | | | | | Genesis Ayon, SUSAN | | +--------+ + + + + | 02/25/ | Office | Primary Care | Erika Ernst, | | | 2019 | Visit | | DO [address] [place] | | | | | | [place] [address] | | | | | | [phone] | | | | | | | [...] | | | | | [place] [address] | | | | | | [phone] | | | | | | | | +--------+ + + + + | 02/27/ | Appointment | Radiology | Dhara, | | | 2019 | | | DWAINE Ross [address] | | | [address] [place], | | | | | | [place] [address] | | | | | | [phone] | | | | | | | [...] | | | | | [place] [address] | | | | | | [phone] | | | | | | | [...] [place] | | | | | | [address] | | | | | | [phone] | | | | | | | [...] | | | | | [place] [address] | | | | | | [phone] | | | | | | | | | | | | Azul Yeboah, | | | | | | MD [address] | | | | | | [place] | | | | | | [place] [address] | | | | | | [phone] | | | | | | | [...] | | | | | | [place] [address] | | | | | | [phone] | | | | | | | | +--------+ + + + + documented as of this encounter Procedures + +--------+ + + + | Procedure Name | Priori | Date/Time | Associated Diagnosis | Comments | | | ty | | | | + +--------+ + + + | JERMAIN TOMOSYN | Routin | 10/23/2019 | Breast cancer | Results for this | | SCREENING BILATERAL | e | 11:44 AM | screening, high risk | procedure are in the | | | | PST | patient Breast | results section. | | | | | cancer screening by | | | | | | mammogram | | + +--------+ + + + documented in this encounter Results JERMAIN Tomosynthesis Screening Bilateral (10/23/2019 11:44 AM PST) + + | Specimen | + + | | + + + + + | Impressions | Performed At | + + + | BIRADS category: BI-RADS 2. No findings suspicious for malignancy. | [facility] | | COMMENT: 1. A negative or "no suspicious findings" mammogram | | | report should not delay biopsy if clinical suspicious findings are | | | present. 2. About 7% of breast cancers are not visible on mammogram. | | | 3. Dense breasts can obscure significant breast masses. COMMENT: | | | BIRADS Category Zero Incomplete: Needs additional imaging evaluation. | | | BIRADS Category One Negative mammogram. BIRADS Category Two Benign | | | findings. BIRADS Category Three Probably benign finding, short | | | interval follow-up suggested. BIRADS Category Four Suspicious for/of | | | malignancy. BIRADS Category Five Highly suggestive for/of malignancy. | | | Dictated by: Chris Bedolla | | + + + + + + | Narrative | Performed At | + + + | EXAMINATION: JERMAIN TOMOSYN SCREENING BILATERAL HISTORY: routine | [facility] | | mammogram to screen for breast cancer COMPARISON STUDY: | | | 10/17/2018. TECHNIQUE: 3D tomosynthesis, 2D synthesized | | | images are utilized in study interpretation. Computer-aided | | | detection analysis was performed and included in the interpretation of | | | this study. FINDINGS: No dominant mass, clustered | | | microcalcification or architectural distortion is seen. Scattered | | | fibroglandular density. Intramammary lymph node noted upper | | | posterior 3rd depth right breast on MLO view, and lateral breast on CC | | | view. Benign calcification demonstrated.. | | + + + + +---------+ + + | Performing | Address | City/State/Zipcode | Phone Number | | Organization | | | | + +---------+ + + | [facility] | | | | + +---------+ + + documented in this encounter Visit Diagnoses + + | Diagnosis | + + | Breast cancer screening, high risk patient Screening mammogram for high-risk patient | + + | Breast cancer screening by mammogram | + + documented in this encounter
--- OUTSIDE RECORDS SUMMARY | ~2020-02-18 | XMS | Encounter Summary ---
Demographics + + + | Address | [address] | | | [place] [address] | + + + | Home Phone [...] Team Providers + +------+ + | Care Sand Caster Name | Role | Phone | + [...] | [place], [place] | [place] [address] | | | | | [address] | [phone] | | | | | [phone] | | | +--------+ + + + [...] | | | | | [place] [address] | | | | | | [phone] | | | | | | | | | | | | Julia Fisher, | | | | | | PT | | +--------+ + + + + | 02/18/ | Appointment | Rehabilitation | Erika Ernst, | | | 2019 | | | DO [address] [place] | | | | | | [place] [address] | | | | | | [phone] | | | | | | | | | | | | [facility] OT | | +--------+ + + + + | 02/25/ | Office | Primary Care | Erika Ernst, | | | 2019 | Visit | | DO [address] [place] | | | | | | [place] [address] | | | | | | [phone] | | | | | | | [...] | | | | | | [place] [address] | | | | | | [phone] | | | | | | | | +--------+ + + + + | 02/27/ | Appointment | Radiology | Dhara, | | | 2019 | | | DWAINE Ross [address] | | | | | | [address] [facility], | | | | | | [place] [address] | | | | | | [phone] | | | | | | | | +--------+ + + + + | 03/04/ | Appointment | Rehabilitation | Genesis Ayon OT | | | 2019 | | | | | +--------+ + + + + | 03/09/ | Office | Orthopedic Surgery | Jeffrey Gandhi, | | | 2019 | Visit | | [address] | | | | | | [place] [address] | | | | | | [phone] | | | | | | | [...] [place] | | | | | | [address] | | | | | | [phone] | | | | | | | [...] | | | | | [place] [address] | | | | | | [phone] | | | | | | | | | | | | Azul Yeboah, | | | | | | [address] | | | | | | [place] | | | | | | [place] [address] | | | | | | [phone] | | | | | | | [...] | | | | | | [place] [address] | | | | | | [phone] | | | | | | | | +--------+ + + + + documented as of this encounter Visit Diagnoses Not on filedocumented in this encounter"
--- OUTSIDE RECORDS SUMMARY | ~2020-02-18 | XMS | Encounter Summary ---
Demographics + + + | Address | [address] | | | [place] [address] | + + + | Home Phone | | + + + | Preferred Language | Unknown | + + + | Marital Status | Single | + + + | Mandaen Affiliation | Unknown | + + + | Race | Unknown | + + + | Ethnic Group | Unknown | + + + Author + + + | Author | [facility] | | | and [place] | + + + | Organization | [facility] | [...] Team Providers + +------+ + | Care Respiratory Care Program Director Name | Role | Phone | [...] + + | Closed | Specialty | Nutrition | Diagnoses | Tank [facility] | | | Services | | Essential | Erika A, DO | Nutrition | | | Required | | hypertension | [address] | [address] | | | | | Class 3 | [place], | [address] | | | | | severe | [place] [address] | [place] | | | | | obesity due | Phone: | [phone] | | | | | to excess | [phone] | Phone: | | | | | calories | Fax: | [phone] | | | | | without | [phone] | Fax: | | | | | serious | | [phone] | | | | | comorbidity | | | | | | | with [...] | | | | | | | [place] MED NUTR | | | | | | | THER, 1ST, | | | | | | | INDIV, EA 15 | | | | | | | MIN [place] MED | | | | | | | NUTR THER, | | | | | | | SUBSQ, | | | | | | | INDIV, EA 15 | | | | | | | MIN | | | +--------+ + + + + + Evaluate & [...] | | Services | Therapy / | Acute pain | Erika A, DO | Therapy Pt | | | Required | Rehabilitatio | of right | [address] | [address] | | | | n | knee | [place], | [place], | | | | | Procedures | [place] [address] | [place] [address] | | | | | PT EVAL | Phone: | Phone: | | | | | | [phone] | [phone] | | | | | | Fax: | Fax: | | | | | | [phone] | [phone] | +--------+ + + + + + Reason for Visit + + + | Reason | Comments | + + + | Knee Pain | | + + + Encounter Details +--------+---------+ + + + | Date | Type | Department | Care Team | Description | +--------+---------+ + + + | 11/08/ | Office | [place] [facility] | Erika Ernst, | Acute pain of right | | 2019 | Visit | [facility] | DO [address] | knee (Primary Dx); | | | | MEDICAL [facility] [address] | [place] [address] | Essential | | | [address] [place], | [phone] | hypertension; Class | | | | [place] [address] | | 3 severe obesity due | | | | [phone] | | to excess calories | | | | | | without serious | | | | | | comorbidity with | | | | | | body mass index | | | | | | (BMI) of 50.0 to | | | | | | 59.9 in adult (HCC) | +--------+---------+ + + [...] + + + | Blood Pressure | 148/98 | 11/08/2018 8:01 AM | | | | | PST | | + + + + + | Pulse | 96 | 11/08/2018 8:01 AM | | | | | PST | | + + + + + | Temperature | - | - | | + + + + + | Respiratory Rate | 16 | 11/08/2018 8:01 AM | | | | | PST | | + + + + + | Oxygen Saturation | 99% | 11/08/2018 8:01 AM | | | | | PST | | + + + + + | Inhaled Oxygen | - | - | | | Concentration | | | | + + + + + | Weight | 168.7 kg (372 lb) | 11/08/2018 8:01 AM | | | | | PST | | + + + + + | Height | 177.8 cm (5' 10") | 11/08/2018 8:01 AM | | | | | PST | | + + + + + | Body Mass Index | 53.38 | 11/08/2018 8:01 AM | | | | | PST | | + + + + + documented in this encounter Progress Erika Cespedes DO - 11/08/2018 8:00 AM PSTFormatting of this note might be different fro m the original. Subjective: Patient ID: Andrea Suh is a 28 y.o. female. Today's visit is not work comp. She is here today to FU on a [facility] visit for a fall at [employer] ( she does not work there) where she was eating at 10 PM and slipped on the floor sofía g on the right knee. States has some intermittent pain still but no redness, bruising or wea kness. She had normal Xray done per the [facility]. She would like PT to take a look at it since sh e is still doing PT for other issues. She has applied K tape to the anterior knee area and s tates that has given pain relief. HTN is uncontrolled today and she declines to increase med . States she just took her med for BP 10 min ago. Discussed that med may not be lasting the 24 hr but she would rather monitor and not increase doses yet. She is morbidly obese and has had no success at wt loss and today she does agree to see dietitian. She is a non-smoker, no drugs or ETOH. Review of Systems As above Objective: BP (!) 148/98 | Pulse 96 | Resp 16 | Ht 1.778 m (5' 10") | Wt (!) 168.7 kg (372 lb) | LMP 10/18/2018 | SpO2 99% | ? No | BMI 53.38 kg/m Physical Exam Constitutional: She is oriented to person, place, and time. She appears well-developed and well-nourished. No distress. HENT: Head: Normocephalic and atraumatic. Eyes: Conjunctivae and EOM are normal. Cardiovascular: Normal rate, regular rhythm and normal heart sounds. No murmur heard. AP 88 Pulmonary/Chest: Effort normal and breath sounds normal. No respiratory distress. Musculoskeletal: Right knee no redness or swelling or increased warmth. Gait steady and even Neurological: She is alert and oriented to person, place, and time. Coordination normal. Skin: Skin is warm and dry. Psychiatric: She has a normal mood and affect. Her behavior is normal. Judgment and thought content normal. Assessment: 1. Acute pain of right knee * [place] [facility] 2. Essential hypertension * [place] [facility] - [facility] Referral 3. Class 3 severe obesity due to excess calories without serious comorbidity with body mass index (BMI) of 50.0 to 59.9 in adult (HCC) * [place] [facility] - [facility] Referral Plan: Have PT eval and Tx the mild right knee injury, not work comp. We will continue to monitor BP. Referral to dietitian for wt loss. documented in this en counter Plan of Treatment +--------+ + + + + | Date | Type | Specialty | Care Team | Description | +--------+ + + + + | 02/18/ | Appointment | Rehabilitation | Erika Ernst, | | | 2019 | | | DO [address] [place] | | | | | | [place] [address] | | | | | | [phone] | | | | | | | | | | | | Julia Fisher, | | | | | | PT | | +--------+ + + + + | 02/18/ | Appointment | Rehabilitation | Erika Ernst, | | | 2019 | | | DO [address] [place] | | | | | | [place] [address] | | | | | | [phone] | | | | | | | | | | | | [facility] OT | | +--------+ + + + + | 02/25/ | Office | Primary Care | Erika Ernst, | | | 2019 | Visit | | DO [address] | | | | | | [place] [address] | | | | | | [phone] | | | | | | | [...] | | | | | [place] [address] | | | | | | [phone] | | | | | | | | +--------+ + + + + | 02/27/ | Appointment | Radiology | Dhara | | | 2019 | | | DWAINE Ross [address] | | | | [address] [place], | | | | | | [place] [address] | | | | | | [phone] | | | | | | | | +--------+ + + + + | 03/04/ | Appointment | Rehabilitation | [facility]yon OT | | | 2019 | | | | | +--------+ + + + + | 03/09/ | Office | Orthopedic Surgery | Jeffrey Gandhi, | | | 2019 | Visit | | [address] | | | | | | [place] [address] | | | | | | [phone] | | | | | | | [...] [place] | | | | | | [address] | | | | | | [phone] | | | | | | | [...] | | | | | [place] [address] | | | | | | [phone] | | | | | | | | | | | | Azul Yeboah, | | | | | | MD [address] | | | | | | [place] | | | | | | [place] [address] | | | | | | [phone] | | | | | | | [...] | | | | | | [place] [address] | | | | | | [phone] | | | | | | | | +--------+ + + + + + + +--------+ + + | Name | Type | Priori | Associated Diagnoses | Order Schedule | | | | ty | | | + + +--------+ + + | * [place] [facility] | Outpatient | Routin | Acute pain of | Ordered: 11/08/2018 | | [facility] | Referral | e | right knee | | | - AMB Referral | | | | | + + +--------+ + + | * [place] [facility] | Outpatient | Routin | Essential | Ordered: 11/08/2018 | | [facility] | Referral | e | hypertension Class | | | Services - AMB | | | 3 severe obesity due | | | Referral | | | to excess calories | | | | | | without serious | | | | | | comorbidity with | | | | | | body mass index | | | | | | (BMI) of 50.0 to | | | | | | 59.9 in adult ([facility]) | | + + +--------+ + + documented as of this encounter Visit Diagnoses + + | Diagnosis | + + | Acute pain of right knee - Primary | + + | Essential hypertension Unspecified essential hypertension | + + | Class 3 severe obesity due to excess calories without serious comorbidity with body | | mass index (BMI) of 50.0 to 59.9 in adult (HCC) | + + documented in this encounter
--- OUTSIDE RECORDS SUMMARY | ~2020-02-18 | XMS | Encounter Summary ---
Demographics + + + | Address | [address] | | | [place] [address] | + + + | Home Phone [...] Team Providers + +------+ + | Care Waste Machine Tender Name | Role | Phone | + +------+ + | Erika Ernst DO | PCP | | + +------+ + Reason for Visit +--------+ + | Reason | Comments | +--------+ + | Other | COVID 19 screening | +--------+ + Encounter Details +--------+ + + + + | Date | Type | Department | Care Team | Description | +--------+ + + + + | 12/23/ | Documentati | [facility] | Carola Grant, | Chris (COVID 19 | | 2020 | on | [facility] | RN | screening ) | | | | [facility] [address] | | | | | | [address] [place], | | | | | | [place] [address] | | | | | | [phone] | | | +--------+ + + + [...] documented as of this encounter Progress Notes Carola Grant RN - 12/24/2019 1:08 PM PDTPatient triaged in their vehicle. Presents wit h cough and shortness of breath, which she states is chronic due to asthma. Denies fever gre ater than 100.4, recent travel outside of the country or to an endemic area, exposures to pe rsons in long-term care facilities, institutional facilities, cruise ships or those with campos gnosed COVID-19. 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 Carola Grant RN documented in this en counter Plan of Treatment +--------+ + + + + | Date | Type | Specialty | Care Team | Description | +--------+ + + + + | 02/18/ | Appointment | Rehabilitation | Erika Ernst, | | | 2019 | | | DO [address] [place] | | | | | | [place] [address] | | | | | | [phone] | | | | | | | | | | | | Julia Fisher, | | | | | | PT | | +--------+ + + + + | 02/18/ | Appointment | Rehabilitation | Erika Ernst, | | | 2019 | | | DO [address] [place] | | | | | | [place] [address] | | | | | | [phone] | | | | | | | | | | | | Genesis Ayon, OT | | +--------+ + + + + | 02/25/ | Office | Primary Care | Erika Ernst, | | | 2019 | Visit | | DO [address] [place] | | | | | | [place] [address] | | | | | | [phone] | | | | | | | [...] | | | | | [place] [address] | | | | | | [phone] | | | | | | | | +--------+ + + + + | 02/27/ | Appointment | Radiology | Dhara, | | | 2019 | | | DWAINE Ross [address] [place], | | | | | | [place] [address] | | | | | | [phone] | | | | | | | | +--------+ + + + + | 03/04/ | Appointment | Rehabilitation | Genesis Ayon OT | | | 2019 | | | | | +--------+ + + + + | 03/09/ | Office | Orthopedic Surgery | Jeffrey Gandhi, | | 2019 | Visit | | [address] [facility] | | | | | | [place] [address] | | | | | | [phone] | | | | | | | [...] [place] | | | | | | [address] | | | | | | [phone] | | | | | | | [...] | | | | | [place] [address] | | | | | | [phone] | | | | | | | | | | | | Azul Yeboah, | | | | | | MD [address] | | | | | | [place] | | | | | | [place] [address] | | | | | | [phone] | | | | | | | [...] | | | | | | [place] [address] | | | | | | [phone] | | | | | | | | +--------+ + + + + documented as of this encounter Visit Diagnoses Not on filedocumented in this encounter"
--- OUTSIDE RECORDS SUMMARY | ~2020-02-18 | XMS | Encounter Summary ---
Demographics + + + | Address | [address] | | | [place] [address] | + + + | Home Phone | | + + + | Preferred Language | Unknown | + + + | Marital Status | Single | + + + | Anabaptism Affiliation | Unknown | + + + | Race | Unknown | + + + | Ethnic Group | Unknown | + + + Author + + + | Author | [facility] | | | and [place] | + + + | Organization | [facility] | | [...] Team Providers + +------+ + | Care Insurance Clerk Name | Role | Phone | + +------+ + | Erika Ernst DO | PCP | | + +------+ + Encounter Details +--------+ + + + + | Date | Type | Department | Care Team | Description | +--------+ + + + + | 10/28/ | [facility] [place] [facility] | Carlos Roberts, | Acute pain of right | | 2020 | Encounter | HOSPITAL XRAY [address] | GARMENT FINISHER [address] | knee | | | | [address] [place] | [place] [address] | | | | | [place], [place] | [phone] | | | | | [address] | | | | | | [phone] | | | +--------+ + + + [...] 60 vial | 0 | 10/11/19 | 12/19/ | | mL nebulizer | treatments in [...] tablet by | 14 | 0 | 10/28/19 | | | (CIPRO) 500 mg | mouth 2 times daily | tablet | | 20 | 0 | | tablet | for 7 days. [...] | | | | | [place] [address] | | | | | | [phone] | | | | | | | | | | | | Julia Fisher, | | | | | | PT | | +--------+ + + + + | 02/18/ | Appointment | Rehabilitation | Erika Ernst, | | | 2019 | | | DO [address] [place] | | | | | | [place] [address] | | | | | | [phone] | | | | | | | | | | | | Genesis Ayon, OT | | +--------+ + + + + | 02/25/ | Office | Primary Care | Erika Ernst, | | | 2019 | Visit | | DO [address] [place] | | | | | | [place] [address] | | | | | | [phone] | | | | | | | [...] | | | | | | [place] [address] | | | | | | [phone] | | | | | | | | +--------+ + + + + | 02/27/ | Appointment | Radiology | Dhara, | | | 2019 | | | DWAINE Ross [address] [place], | | | | | | [place] [address] | | | | | | [phone] | | | | | | | | +--------+ + + + + | 03/04/ | Appointment | Rehabilitation | Genesis Ayon OT | | | 2019 | | | | | +--------+ + + + + | 03/09/ | Office | Orthopedic Surgery | Jeffrey Gandhi, | | | 2019 | Visit | | [address] [facility] | | | | | | [place] [address] | | | | | | [phone] | | | | | | | [...] [place] | | | | | | [address] | | | | | | [phone] | | | | | | | [...] | | | | | [place] [address] | | | | | | [phone] | | | | | | | | | | | | Azul Yeboah, | | | | | | MD [address] | | | | | | [place] | | | | | | [place] [address] | | | | | | [phone] | | | | | | | | +--------+ + + + + | 04/08/ | Appointment | Nutrition | Janel Webstre | | | 2019 | | | [place] | | +--------+ + + + + | 05/21/ | Office | Neurology | Dhara, | | | 2019 | Visit | | DWAINE Ross [address] [place], | | | | | | [place] [address] | | | | | | [phone] | | | | | | | | +--------+ + + + + documented as of this encounter Procedures + +--------+ + + + | Procedure Name | Priori | Date/Time | Associated Diagnosis | Comments | | | ty | | | | + +--------+ + + + | XR KNEE RIGHT 3 VW | Routin | 10/28/2019 | Acute pain of | Results for this | | | e | 11:32 AM | right knee | procedure are in the | | | | PST | | results section. | + +--------+ + + + documented in this encounter Results XR Knee Right 3 Vw (10/28/2019 11:32 AM PST) + + | Specimen | + + | | + + + + + | Impressions | Performed At | + + + | No acute process. Minimal medial compartment degenerative change. | [facility] | | Dictated by: Braydno Stockton | | + + + + + + | Narrative | Performed At | + + + | EXAMINATION: XR KNEE RIGHT 3 VW HISTORY: right knee pain | [facility] | | COMPARISON STUDY: October 27, 2018 FINDINGS: Films in multiple | | | projections show no evidence of an acute fracture. No | | | subluxation. No dislocation. Minimal medial compartment osteophyte | | | formation. Age appropriate bone mineral density. | | + + + + + | Procedure Note | + + | Mitchel, Rad Results In - 10/28/2019 12:13 PM PST EXAMINATION:XR KNEE RIGHT 3 | | VWHISTORY:right knee painCOMPARISON STUDY:October 27, 2018FINDINGS:Films in multiple | | projections show no evidence of an acute fracture. No subluxation. No dislocation. | | Minimal medial compartment osteophyte formation. Age appropriate bone mineral | | density.IMPRESSION: No acute process.Minimal medial compartment degenerative | | change.Dictated by: Braydon Booneectronically Signed by: Braydon Stockton on 10/28/2019 | | 12:10 PM | |October 27, 2018 | | | |FINDINGS: | |Films in multiple projections show no evidence of an acute fracture. No subluxation. No dislocation. Minimal medial compartment osteophyte formation. Age appropriate bone minera l density. | | | |IMPRESSION: | |No acute process. | |Minimal medial compartment degenerative change. | | | |Dictated by: Braydon Stockton [...] + | Acute pain of right knee | + + documented in this encounter"
--- OUTSIDE RECORDS SUMMARY | ~2020-02-18 | XMS | Encounter Summary ---
Demographics + + + | Address | [address] | | | [place] [address] | + + + | Home Phone [...] Team Providers + +------+ + | Care Solar Photovoltaic Installer Name | Role | Phone | [...] | | | of left | [place] [address] | [place] [address] | | | | | ankle, | Phone: | Phone: | | | | | initial | [phone] | [phone] | | | | | encounter | Fax: | Fax: | | | | | Procedures | [phone] | [phone] | | | | | PT TREAT | | | +--------+--------+ + + + + Encounter Details +--------+ + + + + | Date | Type | Department | Care Team | Description | +--------+ + + + + | 09/14/ | Hospital | [facility] [facility] | Erika Ernst, | Sprain of left | | 2018 | Encounter | HOSPITAL [facility]AP[facility] PT | DO [address] | ankle, subsequent | | | | [address] [place] | [place] [address] | encounter (Primary | | | | [place], [place] | [phone] | Dx) | | | | [address] | | | | | | [phone] | Nick Barrios I, PT | | [...] Progress Notes Nick Barrios I, PT - 09/16/2018 12:05 PM PSTFormatting of this note might be different fro m the original. [facility] [address] [place] [address] Physical Therapy Daily Treatment Note Date: 09/14/2018 Patient Information Patient Name: Andrea Suh Date of : 1990 Age: 28 y.o. Encounter Diagnoses Code Name Primary? S93.402D Sprain of left ankle, subsequent encounter Yes Date of Onset: 06/11/2018 Referring Provider: Erika Ernst DO Objective Pain Assessment: Pain Rating Pre Assessment: 3 Pain Rating Post Assessment: 3 Location: L ankle Standardized Tests: Lower Extremity Functional Scale (LEFS) Lower Extremity Functional Scale Goal: 75 Lower Extremity Functional Scale Goal Status: Ongoing Today's Treatment Patient Name: Andrea Suh/: 1990/ Start Time: 1301 Stop time: 1350 Duration: 49 minutes Timed Treatment Codes: 49 minutes # of PT Visits to Date: 13 Visit Summary: S: Patient states that she walked for 45 minutes prior to ankle hurting over the weekend. She got sick after last session in the pool, but states that she has otherwise felt okay since. A: Session focused on balance and LE strengthening. Patient tolerated exer cises well, but demonstrated need for use of grab bar to maintain balance for much of the ba tyrone exercises today. Physical therapy remains necessary in order to further improve L ankl e pain symptoms, LE strenght, and balance in order to return to prior level of function. Next Visit Information: Progress LE strength and balance exercises with steps, bosu, bridge progression, quantum, leg press, lunges. Progress aquatic exercise as tolerated. Therapy Interventions HEP: NEW: SL heel raise on step 3x15 3x/wk, Tandem gait as tolerated 4x/day, ONGOING: sup ine bridges 3x10 progressing to 15 4x/wk // Sidelying hip abduction 3x10 progressing to 15 4 x/wk // Tandem stance 2x60 second holds each foot position 1x/day // Using RTB in door jam r ather than holding onto with hands. Discontinue PF with theraband in favor of SL heel raise with GUNSTOCK SPRAY UNIT FEEDER. ONGOING: SLS on even surface 3x30 seconds 1x/day // Double leg heel raise 3x10 3x /wk // forward/lateral step ups on 8" step 3x10 3x/wk each // standing achilles stretch 3x30 seconds 1x/day. // 4 way ankle PRE yellow theraband 3x10 each direction 3x/wk. // Ankle inv ersion/eversion 3x10 progressing to 20 1x/day // ankle ABC's 3x/day. // Ankle pumps 3x10 pro gressing to 20 repetitions 1x/day // ankle circles 3x10 progressing to 20 repetitions each d irection 1x/day PT INTERVENTION 1: TE - (21 minutes) TM ambulation 10 minutes @ 1.1 mph, SL heel raise on 4" step 2x15, Supine bridges 2x15, Sidelying hip abduction 2x15 each LE, additional time required for rest between exercises, patient required cueing to perform exercises correctly. PT INTERVENTION 2: NMR (28 minutes) SLS eyes closed 1x30 seconds, 2x1 minute GUNSTOCK SPRAY UNIT FEEDER grab bar, Oanh disc SLS 1x30 seconds, 1x1 minute GUNSTOCK SPRAY UNIT FEEDER grab bar as needed, Tandem gait forward/backwar d 4x20' each direction, Tandem stance 2x1 minute eyes closed frequent use of grab bar to ma intain balance, additional time required for rest between exercises and cueing for correct form of exercise Assessment Rehabilitation potential: Patient demonstrates fair potential [...] Goal 4 Status: Ongoing; pain rated at 3/10 today Electronically signed by: Nick Barrios, PT, 09/16/2018 12:05 Patient Name: Andrea King Angeli/: 1990/ documented [...] | | | | | [place] [address] | | | | | | [phone] | | | | | | | | | | | | Julia Fisher, | | | | | | PT | | +--------+ + + + + | 02/18/ | Appointment | Rehabilitation | Erika Ernst, | | | 2019 | | | DO [address] [place] | | | | | | [place] [address] | | | | | | [phone] | | | | | | | | | | | | Genesis Ayon OT | | +--------+ + + + + | 02/25/ | Office | Primary Care | Erika Ernst, | | | 2019 | Visit | | DO [address] [place] [address] | | | | | | [place] [address] | | | | | | [phone] | | | | | | | [...] | | | | | [place] [address] | | | | | | [phone] | | | | | | | | +--------+ + + + + | 02/27/ | Appointment | Radiology | Dhara, | | | 2019 | | | DWAINE Ross [address] | [address] [place], | | | | | | [place] [address] | | | | | | [phone] | | | | | | | | +--------+ + + + + | 03/04/ | Appointment | Rehabilitation | Genesis Ayon OT | | | 2019 | | | | | +--------+ + + + + | 03/09/ | Office | Orthopedic Surgery | Jeffrey Gandhi, | | | 2019 | Visit | | [address] | | | | | | [place] [address] | | | | | | [phone] | | | | | | | [...] [place] | | | | | | [address] | | | | | | [phone] | | | | | | | [...] | | | | | [place] [address] | | | | | | [phone] | | | | | | | | | | | | Azul Yeboah, | | | | | | [address] | | | | | | [place] | | | | | | [place] [address] | | | | | | [phone] | | | | | | | [...] | | | | | | [place] [address] | | | | | | [phone] | | | | | | | | +--------+ + + + + documented as of this encounter Visit Diagnoses + + | Diagnosis | + + | Sprain of left ankle, subsequent encounter - Primary | + + documented in this encounter
--- OUTSIDE RECORDS SUMMARY | ~2020-02-18 | XMS | Encounter Summary ---
Demographics + + + | Address | [address] | | | [place] [address] | + + + | Home Phone | | + + + | Preferred Language | Unknown | + + + | Marital Status | Single | + + + | Pentecostalism Affiliation | Unknown | + + + | Race | Unknown | + + + | Ethnic Group | Unknown | + + + Author + + + | Author | [facility] | | | and [place] | + + + | Organization | [facility] | | [...] Team Providers + +------+ + | Care Molded Goods Operator Name | Role | Phone | + +------+ + PCP | Unavailable | + +------+ + Encounter Details +--------+ + + + + | Date | Type | Department | Care Team | Description | +--------+ + + + + | 12/02/ | [facility] | Megan Duffy | | | 2016 | Encounter | HOSPITAL EM[facility] | MCKENZIE Gale [address] | | | | | C[facility] [address] [place] [place], | | | | | DR [place], [place] | [place] [address] | | | | | [address] | [phone] | | | | | [phone] | | | +--------+ + + + [...] | | | | | [place] [address] | | | | | | [phone] | | | | | | | | | | | | Julia Fisher, | | | | | | PT | | +--------+ + + + + | 02/18/ | Appointment | Rehabilitation | Erika Ernst, | | | 2019 | | | DO [address] [place] | | | | | | [place] [address] | | | | | | [phone] | | | | | | | | | | | | Genesis Ayon, SUSAN | | +--------+ + + + + | 02/25/ | Office | Primary Care | Erika Ernst, | | | 2019 | Visit | | DO [address] [place] | | | | | | [place] [address] | | | | | | [phone] | | | | | | | | +--------+ + + + + | 02/25/ | Appointment | Rehabilitation | Genesis Ayon, OT | | | 2019 | | | | | +--------+ + + + + | 02/26/ | Virtual | Rehabilitation | Usha Rodriguez | | | 2019 | Office | | MD Laura [address] | | | | Visit | | [address] [place] | | | | | | [place] [address] | | | | | | [phone] | | | | | | | | +--------+ + + + + | 02/27/ | Appointment | Radiology | Dhara, | | | 2019 | | | DWAINE Ross [address] | | | | | | [address] [facility], | | | | | | [place] [address] | | | | | | [phone] | | | | | | | | +--------+ + + + + | 03/04/ | Appointment | Rehabilitation | Genesis Ayon OT | | | 2019 | | | | | +--------+ + + + + | 03/09/ | Office | Orthopedic Surgery | Jeffrey Gandhi, | | | 2019 | Visit | | [address] [facility] | | | | | | [place] [address] | | | | | | [phone] | | | | | | | [...] [place] | | | | | | [address] | | | | | | [phone] | | | | | | | [...] | | | | | [place] [address] | | | | | | [phone] | | | | | | | | | | | | Azul Yeboah, | | | | | | MD [address] | | | | | | [place] | | | | | | [place] [address] | | | | | | [phone] | | | | | | | | +--------+ + + + + | 04/08/ | Appointment | Nutrition | Janel Webster | | | 2019 | | | [place], [place] | | +--------+ + + + + | 05/21/ | Office | Neurology | Dhara, | | | 2019 | Visit | | Maddylauraromario, [address] | | | | | | [address] [facility], | | | | | | [place] [address] | | | | | | [phone] | | | | | | | | +--------+ + + + + documented as of this encounter Procedures + +--------+ + + + | Procedure Name | Priori | Date/Time | Associated Diagnosis | Comments | | | ty | | | | + +--------+ + + + | CBC W/AUTO | STAT | 12/03/2015 | | Results for this | | DIFFERENTIAL | | 3:14 PM | | procedure are in the | | | | PST | | results section. | + +--------+ + + + | , SERUM, | STAT | 12/03/2015 | | Results for this | | QUAL | | 3:14 PM | | procedure are in the | | | | PST | | results section. | + +--------+ + + + | HIV TYPE 1 AND 2 AB | STAT | 12/03/2015 | | Results for this | | SCREEN, RAPID | | 3:11 PM | | procedure are in the | | | | PST | | results section. | + +--------+ + + + documented in this encounter Results , Serum, Qual (12/03/2015 3:14 PM PST) + + + + + + | Component | Value | Ref Range | Performed | Pathologist | | | | | At | Signature | + + + + + + | HCG | NEGATIVE | NEGATIVE | EXTERNAL | | | QUALITATIVE | | | LAB | | + [...] +---------+ + + CBC w/ Auto Differential (12/03/2015 3:14 PM PST) + +-------+ + + + | Component | Value | Ref Range | Performed | Pathologist | | | | | At | Signature | + +-------+ + + + | WBC | 11.8 | 4.3 - 10.4 | EXTERNAL | | | | | 1000/mm3 | LAB | | + +-------+ + + + | RBC | 4.64 | 4.12 - 5.30 | EXTERNAL | | | | | mil/mm3 | LAB | | + +-------+ + + + | HGB, | 12.8 | 12.4 - 15.7 | EXTERNAL | | | External | | g/dL | LAB | | + +-------+ + + + | HCT, | 38.9 | 37.7 - 47.0 % | EXTERNAL | | | External | | | LAB | | + +-------+ + + + | MCV | 84 | 82 - 97 fl | EXTERNAL | | | | | | LAB | | + +-------+ + + + | MCH | 27.6 | 27.1 - 32.3 pg | EXTERNAL | | | | | | LAB | | + +-------+ + + + | MCHC | 32.9 | 32.0 - 36.9 | EXTERNAL | | | | | g/dL | LAB | | + +-------+ + + + | RDW-CV | 14.5 | <=17.0 % | EXTERNAL | | | | | | LAB | | + +-------+ + + + | RDW-SD | 43.7 | 34.0 - 57.0 fL | EXTERNAL | | | | | | LAB | | + +-------+ + + + | Platelet | 270 | 150 - 450 | EXTERNAL | | | Count | | 1000/mm3 | LAB | | | Plasma | | | | | + +-------+ + + + | MPV | 10.6 | 9.4 - 12.3 FL | EXTERNAL | | | | | | LAB | | + +-------+ + + + | % Segmented | 64.2 | 42.0 - 76.0 % | EXTERNAL | | | | | | LAB | | | Neutrophils | | | | | + +-------+ + + + | % | 28.4 | 20.0 - 40.0 % | EXTERNAL | | | Lymphocytes | | | LAB | | + +-------+ + + + | % Monocytes | 6.5 | 3.0 - 13.0 % | EXTERNAL | | | | | | LAB | | + +-------+ + + + | % | 0.6 | 0.0 - 7.0 % | EXTERNAL | | | Eosinophils | | | LAB | | + +-------+ + + + | % Basophils | 0.3 | 0.0 - 2.0 % | EXTERNAL | | | | | | LAB | | + +-------+ + + + | Absolute | 7.55 | 2.50 - 8.50 | EXTERNAL | | | Neutrophils | | 1000/mm3 | LAB | | + +-------+ + + + | Absolute | 3.34 | 1.00 - 3.80 | EXTERNAL | | | Lymphocytes | | 1000/mm3 | LAB | | + +-------+ + + + | Absolute | 0.76 | 0.00 - 0.80 | EXTERNAL | | | Monocytes | | 1000/mm3 | LAB | | + +-------+ + + + | Absolute | 0.07 | 0.00 - 0.70 | EXTERNAL | [...] | | | + +---------+ + + HIV Type 1 and 2 Ab Kathy Juan (12/03/2015 3:11 PM PST) + + + + + + | Component | Value | Ref Range | Performed | Pathologist | | | | | At | Signature | + + + + + + | HIV 1/2 Ab | NON REACTIVE | NON REACTIVE | EXTERNAL | | | and P24 Ag | | | LAB | | + [...]
--- OUTSIDE RECORDS SUMMARY | ~2020-02-18 | XMS | Encounter Summary ---
Demographics + + + | Address | [address] | | | [place] [address] | + + + | Home Phone | | + + + | Preferred Language | Unknown | + + + | Marital Status | Single | + + + | Congregational Affiliation | Unknown | + + + [...] Providers + +------+ + | Care Technology Solutions Architect Name | Role | Phone | [...] | +--------+ + + + + | 06/12/ | Telephone | [facility] [facility] | Erika Ernst, | Lab Results | | 2019 | | [facility] | DO [address] | | | | | [facility] [address] | [place] [address] | | | | | [address] [place], | [phone] | | | | | [place] [address] | | | | | | [phone] | | | +--------+ + + + [...] | | | | | [place] [address] | | | | | | [phone] | | | | | | | | | | | | Forma, Julia M, | | | | | | PT | | +--------+ + + + + | 02/18/ | Appointment | Rehabilitation | Erika Ernst, | | | 2019 | | | DO [address] [place] | | | | | | [place] [address] | | | | | | [phone] | | | | | | | | | | | | Genesis Ayon OT | | +--------+ + + + + | 02/25/ | Office | Primary Care | Erika Ernst, | | | 2019 | Visit | | DO [address] [place] | | | | | | [place] [address] | | | | | | [phone] | | | | | | | [...] | | | | | [place] [address] | | | | | | [phone] | | | | | | | | +--------+ + + + + | 02/27/ | Appointment | Radiology | Dhaar, | | | 2019 | | | DWAINE Ross [address] | | | | | | [address] [facility], | | | | | | [place] [address] | | | | | | [phone] | | | | | | | [...] ST | | | | | | [place] [address] | | | | | | [phone] | | | | | | | [...] [place] | | | | | | [address] | | | | | | [phone] | | | | | | | [...] | | | | | [place] [address] | | | | | | [phone] | | | | | | | | | | | | Azul Yeboah, | | | | | | MD [address] | | | | | | [place] | | | | | | [place] [address] | | | | | | [phone] | | | | | | | [...] | | | | | | [place] [address] | | | | | | [phone] | | | | | | | | +--------+ + + + + documented as of this encounter Visit Diagnoses Not on filedocumented in this encounter"
--- OUTSIDE RECORDS SUMMARY | ~2020-02-18 | XMS | Encounter Summary ---
Demographics + + + | Address | [address] | | | [place] [address] | + + + | Home Phone [...] Team Providers + +------+ + | Care Product Engineering Manager Name | Role | Phone | [...] + + + + | 09/24/ | Telephone | [facility] | Erika Ernst, | Lab Results | | 2019 | | [facility] | DO [address] | | | | | [facility] [address] | [place] [address] | | | | | [address] [place], | [phone] | | | | | [place] [address] | | | | | | [phone] | | | +--------+ + + + [...] | | | | | [place] [address] | | | | | | [phone] | | | | | | | | | | | | Forma, Julia M, | | | | | | PT | | +--------+ + + + + | 02/18/ | Appointment | Rehabilitation | Erika Ernst, | | | 2019 | | | DO [address] | | | | | | [place] [address] | | | | | | [phone] | | | | | | | | | | | | [facility] | | +--------+ + + + + | 02/25/ | Office | Primary Care | Erika Ernst, | | | 2019 | Visit | | DO [address] | | | | | | [place] [address] | | | | | | [phone] | | | | | | | [...] | | | | | [place] [address] | | | | | | [phone] | | | | | | | | +--------+ + + + + | 02/27/ | Appointment | Radiology | Dhara, | | | 2019 | | | [address] | | | | | | 4TH [facility], | | | | | | [place] [address] | | | | | | [phone] | | | | | | | [...] ST | | | | | | [place] [address] | | | | | | [phone] | | | | | | | [...] [place] | | | | | | [address] | | | | | | [phone] | | | | | | | [...] | | | | | [place] [address] | | | | | | [phone] | | | | | | | | | | | | Azul Yeboah, | | | | | | MD [address] | | | | | | [place] | | | | | | [place] [address] | | | | | | [phone] | | | | | | | [...] | | | | | | [place] [address] | | | | | | [phone] | | | | | | | | +--------+ + + + + documented as of this encounter Visit Diagnoses Not on filedocumented in this encounter"
--- OUTSIDE RECORDS SUMMARY | ~2020-02-18 | XMS | Encounter Summary ---
Demographics + + + | Address | [address] | | | [place] [address] | + + + | Home Phone [...] Team Providers + +------+ + | Care Stem Roller Name | Role | Phone | + [...] + + | Closed | Specialty | Psychiatry | Diagnoses | Tank Ernst Provider | | | Services | | PTSD | Erika A, DO | Not, In | | | Required | | (post-trauma | [address] | System | | | | | tic stress | [place], | [place] | | | | | disorder) | [place] [address] | Health and | | | | | Anxiety | Phone: | Service | | | | | Somatic | [phone] | | | | | | symptom | Fax: | | | | | | disorder | [phone] | | +--------+ + + + + [...] | [facility] [address] | [place] [address] | (Primary Dx); Iron | | | | [address] [place], | [phone] | deficiency; Acquired | | | | [place] [address] | | hypothyroidism; | | | | [phone] | | PTSD (post-traumatic | | | [...] wrist. She was seen in ER in [place] when she was helpi ng her Mom [...] new referral to Dr Modesto Blackwood in [place] for the prior work comp wrist hand [...] to see a psychiatrist she knows in [facility] and we will make that referral. Non-smoker. [...] | | | | | [place] [address] | | | | | | [phone] | | | | | | | | | | | | Julia Fisher, | | | | | | PT | | +--------+ + + + + | 02/18/ | Appointment | Rehabilitation | Erika Ernst, | | | 2019 | | | DO [address] [place] | | | | | | [place] [address] | | | | | | [phone] | | | | | | | | | | | | [facility] | | +--------+ + + + + | 02/25/ | Office | Primary Care | Erika Ernst, | | | 2019 | Visit | | DO [address] | | | | | | [place] [address] | | | | | | [phone] | | | | | | | [...] | | | | | | [place] [address] | | | | | | [phone] | | | | | | | | +--------+ + + + + | 02/27/ | Appointment | Radiology | Dhara, | | | 2019 | | | [address] | | | | | | 4TH [facility], | | | | | | [place] [address] | | | | | | [phone] | | | | | | | | +--------+ + + + + | 03/04/ | Appointment | Rehabilitation | [facility] OT | | 2019 | | | | | +--------+ + + + + | 03/09/ | Office | Orthopedic Surgery | Jeffrey Gandhi, | | | 2019 | Visit | | [address] | | | | | | [place] [address] | | | | | | [phone] | | | | | | | [...] [place] | | | | | | [address] | | | | | | [phone] | | | | | | | [...] | | | | | [place] [address] | | | | | | [phone] | | | | | | | | | | | | Azul Yeboah, | | | | | | MD [address] | | | | | | [place] [place] | | | | | | [place] [address] | | | | | | [phone] | | | | | | | | +--------+ + + + + | 04/08/ | Appointment | Nutrition | Janel Webster | | | 2020 | | | [address] | | +--------+ + + + + | 05/21/ | Office | Neurology | Dhara, | | | 2019 | Visit | | [address] | | | | | | 4TH [facility], | | | | | | [place] [address] | | | | | | [phone] | | | | | | | [...]
--- OUTSIDE RECORDS SUMMARY | ~2020-02-18 | XMS | Encounter Summary ---
Demographics + + + | Address | [address] | | | [place] [address] | + + + | Home Phone [...] Providers + +------+ + | Care Manager Flight Operations Name | Role | Phone | + [...] | [facility] [address] | [place] [address] | | | | | [address] [place], | [phone] | | | | | [place] [address] | | | | | | [phone] | | | +--------+ + + + [...] | | | | | [place] [address] | | | | | | [phone] | | | | | | | | | | | | Forma, Julia M, | | | | | | PT | | +--------+ + + + + | 02/18/ | Appointment | Rehabilitation | Erika Ernst, | | | 2019 | | | DO [address] | | | | | | [place] [address] | | | | | | [phone] | | | | | | | | | | | | [facility] | | +--------+ + + + + | 02/25/ | Office | Primary Care | Erika Ernst, | | | 2019 | Visit | | DO [address] | | | | | | [place] [address] | | | | | | [phone] | | | | | | | [...] | | | | | [place] [address] | | | | | | [phone] | | | | | | | | +--------+ + + + + | 02/27/ | Appointment | Radiology | Dhara, | | | 2019 | | | [address] | | | | | | 4TH [facility], | | | | | | [place] [address] | | | | | | [phone] | | | | | | | [...] ST | | | | | | [place] [address] | | | | | | [phone] | | | | | | | [...] [place] | | | | | | [address] | | | | | | [phone] | | | | | | | [...] | | | | | [place] [address] | | | | | | [phone] | | | | | | | | | | | | Azul Yeboah, | | | | | | MD [address] | | | | | | [place] | | | | | | [place] [address] | | | | | | [phone] | | | | | | | [...] | | | | | | [place] [address] | | | | | | [phone] | | | | | | | | +--------+ + + + + documented as of this encounter Visit Diagnoses Not on filedocumented in this encounter"
--- OUTSIDE RECORDS SUMMARY | ~2020-02-18 | XMS | Encounter Summary ---
Demographics + + + | Address | [address] | | | [place] [address] | + + + | Home Phone [...] Team Providers + +------+ + | Care Tobacco Packer Name | Role | Phone | + +------+ + PCP | Unavailable | + +------+ + Encounter Details +--------+ + + + + | Date | Type | Department | Care Team | Description | +--------+ + + + + | 06/10/ | [facility] | Caro Zendejas | | | 2013 | Encounter | [facility] | Vale, TECHNICAL OPERATOR [address] | | | | | MED[facility] [address] | [facility], [place] | | | | | 4TH [facility], | [address] | | | | | [place] [address] | [phone] | | | | | [phone] | | | +--------+ + + + [...] | | | | | [place] [address] | | | | | | [phone] | | | | | | | | | | | | Julia Fisher, | | | | | | PT | | +--------+ + + + + | 02/18/ | Appointment | Rehabilitation | Erika Ernst, | | | 2019 | | | DO [address] | | | | | | [place] [address] | | | | | | [phone] | | | | | | | | | | | | Genesis Ayon, OT | | +--------+ + + + + | 02/25/ | Office | Primary Care | Erika Ernst, | | | 2019 | Visit | | DO [address] | | | | | | [place] [address] | | | | | | [phone] | | | | | | | [...] | | | | | [place] [address] | | | | | | [phone] | | | | | | | | +--------+ + + + + | 02/27/ | Appointment | Radiology | Dhara, | | | 2019 | | | [address] | | | | | | 4TH [facility], | | | | | | [place] [address] | | | | | | [phone] | | | | | | | | +--------+ + + + + | 03/04/ | Appointment | Rehabilitation | [facility] OT | | | 2019 | | | | | +--------+ + + + + | 03/09/ | Office | Orthopedic Surgery | Jeffrey Gandhi, | | | 2019 | Visit | | [address] | | | | | | [place] [address] | | | | | | [phone] | | | | | | | [...] [place] | | | | | | [address] | | | | | | [phone] | | | | | | | [...] | | | | | [place] [address] | | | | | | [phone] | | | | | | | | | | | | Azul Yeboah, | | | | | | MD [address] | | | | | | [place] | | | | | | [place] [address] | | | | | | [phone] | | | | | | | | +--------+ + + + + | 04/08/ | Appointment | Nutrition | Janel Webster | | | 2019 | | | [place], [place] | | +--------+ + + + + | 05/21/ | Office | Neurology | Dhaar, | | | 2020 | Visit | | [address] | | | | | | [address] [place], | | | | | | [place] [address] | | | | | | [phone] | | | | | | | | +--------+ + + + + documented as of this encounter Visit Diagnoses Not on filedocumented in this encounter"
--- OUTSIDE RECORDS SUMMARY | ~2020-02-18 | XMS | Encounter Summary ---
Demographics + + + | Address | [address] | | | [place] [address] | + + + | Home Phone [...] Team Providers + +------+ + | Care Portable Router Operator Name | Role | Phone | [...] | [facility] [address] | [place] [address] | | | | | [address] [place], | [phone] | | | | | [place] [address] | | | | | | [phone] | | | +--------+ + + + [...] | | | | | [place] [address] | | | | | | [phone] | | | | | | | | | | | | Julia Fisher, | | | | | | PT | | +--------+ + + + + | 02/18/ | Appointment | Rehabilitation | Erika Ernst, | | | 2019 | | | DO [address] | | | | | | [place] [address] | | | | | | [phone] | | | | | | | | | | | | [facility] | | +--------+ + + + + | 02/25/ | Office | Primary Care | Erika Ernst, | | | 2019 | Visit | | DO [address] | | | | | | [place] [address] | | | | | | [phone] | | | | | | | [...] | | | | | | [place] [address] | | | | | | [phone] | | | | | | | | +--------+ + + + + | 02/27/ | Appointment | Radiology | Dhara, | | | 2019 | | | [address] | | | | | | 4TH [facility], | | | | | | [place] [address] | | | | | | [phone] | | | | | | | | +--------+ + + + + | 03/04/ | Appointment | Rehabilitation | [facility] OT | | | 2019 | | | | | +--------+ + + + + | 03/09/ | Office | Orthopedic Surgery | Jeffrey Gandhi, | | | 2019 | Visit | | [address] | | | | | | [place] [address] | | | | | | [phone] | | | | | | | [...] [place] | | | | | | [address] | | | | | | [phone] | | | | | | | [...] | | | | | [place] [address] | | | | | | [phone] | | | | | | | | | | | | Azul Yeboah, | | | | | | [address] | | | | | | [place] | | | | | | [place] [address] | | | | | | [phone] | | | | | | | [...] | | | | | | [place] [address] | | | | | | [phone] | | | | | | | | +--------+ + + + + documented as of this encounter Visit Diagnoses Not on filedocumented in this encounter"
--- OUTSIDE RECORDS SUMMARY | ~2020-02-18 | XMS | Encounter Summary ---
Demographics + + + | Address | [address] | | | [place] [address] | + + + | Home Phone [...] Team Providers + +------+ + | Care Provider Relations Consultant Name | Role | Phone | [...] | tic stress | [place], | [place] | | | | | disorder) | [place] [address] | Health and | | | | | Anxiety | Phone: | Service | | | | | Somatic | [phone] | | | | | | symptom | Fax: | | | | | | disorder | [phone] | | +--------+ + + + + [...] | [facility] [address] | [place] [address] | (Primary Dx); Iron | | | | [address] [place], | [phone] | deficiency; Acquired | | | | [place] [address] | | hypothyroidism; | | | | [phone] | | PTSD (post-traumatic | | | [...] wrist. She was seen in ER in [place] when she was helpi ng her Mom [...] new referral to Dr Modesto Blackwood in [place] for the prior work comp wrist hand [...] to see a psychiatrist she knows in [facility] and we will make that referral. [...] | | | | | [place] [address] | | | | | | [phone] | | | | | | | | | | | | Julia Fisher, | | | | | | PT | | +--------+ + + + + | 02/18/ | Appointment | Rehabilitation | Erika Ernst, | | | 2019 | | | DO [address] | | | | | | [place] [address] | | | | | | [phone] | | | | | | | | | | | | [facility] | | +--------+ + + + + | 02/25/ | Office | Primary Care | Erika Ernst, | | | 2019 | Visit | | DO [address] | | | | | | [place] [address] | | | | | | [phone] | | | | | | | [...] | | | | | | [place] [address] | | | | | | [phone] | | | | | | | | +--------+ + + + + | 02/27/ | Appointment | Radiology | Dhara, | | | 2019 | | | [address] | | | | | | 4TH [facility], | | | | | | [place] [address] | | | | | | [phone] | | | | | | | | +--------+ + + + + | 03/04/ | Appointment | Rehabilitation | [facility] OT | | 2019 | | | | | +--------+ + + + + | 03/09/ | Office | Orthopedic Surgery | Jeffrey Gandhi, | | | 2019 | Visit | | [address] | | | | | | [place] [address] | | | | | | [phone] | | | | | | | [...] [place] | | | | | | [address] | | | | | | [phone] | | | | | | | [...] | | | | | [place] [address] | | | | | | [phone] | | | | | | | | | | | | Azul Yeboah, | | | | | | MD [address] | | | | | | [place] [place] | | | | | | [place] [address] | | | | | | [phone] | | | | | | | [...] | | | | | | [place] [address] | | | | | | [phone] | | | | | | | [...]
--- OUTSIDE RECORDS SUMMARY | ~2020-02-18 | XMS | Encounter Summary ---
Demographics + + + | Address | [address] | | | [place] [address] | + + + | Home Phone [...] Team Providers + +------+ + | Care Louver Door Assembler Name | Role | Phone | + +------+ + | Erika Ernst DO | PCP | | + +------+ + Reason for Visit +--------+ + | Reason | Comments | +--------+ + | Other | R Arm Cast Issue | +--------+ + Encounter Details +--------+ + + + + | Date | Type | Department | Care Team | Description | +--------+ + + + + | 04/26/ | Telephone | [facility] | Inocencio Noriega | Other (Caryn Holloway | | 2019 | | [facility] | MD [address] | Issue) | | | | [address] | [address] | | | | | [place], [place] | [place] [address] | | | | | [address] | [phone] | | | | | [phone] | | | +--------+ + + + [...] | | | | | [place] [address] | | | | | | [phone] | | | | | | | | | | | | Julia Fisher, | | | | | | PT | | +--------+ + + + + | 02/18/ | Appointment | Rehabilitation | Erika Ernst, | | | 2019 | | | DO [address] [place] | | | | | | [place] [address] | | | | | | [phone] | | | | | | | | | | | | [facility] | | +--------+ + + + + | 02/25/ | Office | Primary Care | Erika Ernst, | | | 2019 | Visit | | DO [address] | | | | | | [place] [address] | | | | | | [phone] | | | | | | | [...] | | | | | | [place] [address] | | | | | | [phone] | | | | | | | | +--------+ + + + + | 02/27/ | Appointment | Radiology | Dhara, | | | 2019 | | | [address] | | | | | | [address] [place], | | | | | | [place] [address] | | | | | | [phone] | | | | | | | [...] [address] | | | | | | [place] [address] | | | | | | [phone] | | | | | | | [...] [place] | | | | | | [address] | | | | | | [phone] | | | | | | | [...] | | | | | [place] [address] | | | | | | [phone] | | | | | | | | | | | | Azul Yeboah, | | | | | | MD [address] | | | | | | [place] | | | | | | [place] [address] | | | | | | [phone] | | | | | | | [...] | | | | | | [place] [address] | | | | | | [phone] | | | | | | | | +--------+ + + + + documented as of this encounter Visit Diagnoses Not on filedocumented in this encounter"
--- OUTSIDE RECORDS SUMMARY | ~2020-02-18 | XMS | Encounter Summary ---
Demographics + + + | Address | [address] | | | [place] [address] | + + + | Home Phone [...] Team Providers + +------+ + | Care Dyer Helper Name | Role | Phone | + +------+ + | Erika Ernst DO | PCP | | + +------+ + Encounter Details +--------+ + + + + | Date | Type | Department | Care Team | Description | +--------+ + + + + | 05/06/ | Hospital | [facility] [facility] | Marvel, | | | 2019 | Encounter | [facility] | [place], [place] [address] | | | | | THERAPY [address] | [address] [address] | | | | | [address] [place], [place] | [place] [address] | | | | | [address] | | | | | | [phone] | (Fax) | | +--------+ + + + + [...] | 04/12/20 | | | (VITAMIN D3) [address] | mouth Once a week | tablet [...] | | | | | [place] [address] | | | | | | [phone] | | | | | | | | | | | | Julia Fisher, | | | | | | PT | | +--------+ + + + + | 02/18/ | Appointment | Rehabilitation | Erika Ernst, | | | 2019 | | | DO [address] [place] | | | | | | [place] [address] | | | | | | [phone] | | | | | | | | | | | | [facility] | | +--------+ + + + + | 02/25/ | Office | Primary Care | Erika Ernst, | | | 2019 | Visit | | DO [address] [place] | | | | | | [place] [address] | | | | | | [phone] | | | | | | | [...] | | | | | | [place] [address] | | | | | | [phone] | | | | | | | | +--------+ + + + + | 02/27/ | Appointment | Radiology | Dhara, | | | 2019 | | | [address] | | | | | | 4TH [facility] [place], | | | | | | [place] [address] | | | | | | [phone] | | | | | | | [...] [address] | | | | | | [place] [address] | | | | | | [phone] | | | | | | | [...] [address] | | | | | | [address] | | | | | | [place], [place] | | | | | | [address] | | | | | | [phone] | | | | | | | [...] | | | | | [place] [address] | | | | | | [phone] | | | | | | | | | | | | Azul Yeboah, | | | | | | MD [address] | | | | | | [place] | | | | | | [place] [address] | | | | | | [phone] | | | | | | | [...] | | | | | [address] [place], | | | | | | [place] [address] | | | | | | [phone] | | | | | | | | +--------+ + + + + documented as of this encounter Procedures + +--------+ + + + | Procedure Name | Priori | Date/Time | Associated Diagnosis | Comments | | | ty | | | | + +--------+ + + + | PFT PULMONARY | Routin | 05/20/2019 | Asthma, | Results for this | | FUNCTION TESTING | e | 3:59 PM | unspecified asthma | procedure are in the | | ORDERS | | PDT | severity, | results section. | | | | | unspecified whether | | | | | | complicated, | | | | | | unspecified whether | | | | | | persistent | | + +--------+ + + + documented in this encounter Results Pulmonary function test (05/20/2019 3:59 PM PDT) + + + | Narrative | Performed At | + + + | | | + + + documented in this encounter Visit Diagnoses Not on filedocumented in this encounter"
--- OUTSIDE RECORDS SUMMARY | ~2020-02-18 | XMS | Encounter Summary ---
Demographics + + + | Address | [address] | | | [place] [address] | + + + | Home Phone | | + + + | Preferred Language | Unknown | + + + | Marital Status | Single | + + + | Spiritism Affiliation | Unknown | + + + | Race | Unknown | + + + | Ethnic Group | Unknown | + + + Author + + + | Author | [facility] | | | and [place] | + + + | Organization | [facility] | | [...] Team Providers + +------+ + | Care Audiovisual Equipment Operator Name | Role | Phone | + +------+ + | Erika Ernst DO | PCP | | + +------+ + Reason for Visit + + + | Reason | Comments | + + + | Ankle Pain | Pt request call back today re: right ankle sprain | + + + Encounter Details +--------+ + + + + | Date | Type | Department | Care Team | Description | +--------+ + + + + | 09/26/ | Telephone | [facility] [facility] | Erika Ernst, | Ankle Pain (Pt | | 2019 | | [facility] | DO [facility] [address] [place] | request call back | | | | [facility] [address] | [facility] [place] [address] | today re: right | | | | [address] [place], | [phone] | ankle sprain) | | | | [place] [address] | | | | | | [phone] | | | +--------+ + + + [...] | | | | | [place] [address] | | | | | | [phone] | | | | | | | | | | | | Julia Fisher, | | | | | | PT | | +--------+ + + + + | 02/18/ | Appointment | Rehabilitation | Erika Ernst, | | | 2019 | | | DO [address] [place] | | | | | | [place] [address] | | | | | | [phone] | | | | | | | | | | | | [facility] | | +--------+ + + + + | 02/25/ | Office | Primary Care | Erika Ernst, | | | 2019 | Visit | | DO [address] [place] | | | | | | [place] [address] | | | | | | [phone] | | | | | | | [...] | | | | | | [place] [address] | | | | | | [phone] | | | | | | | | +--------+ + + + + | 02/27/ | Appointment | Radiology | Dhara, | | | 2019 | | | [address] | | | | | | [address] [place], | | | | | | [place] [address] | | | | | | [phone] | | | | | | | [...] | | | | | [place] [address] | | | | | | [phone] | | | | | | | [...] [place] | | | | | | [address] | | | | | | [phone] | | | | | | | [...] | | | | | [place] [address] | | | | | | [phone] | | | | | | | | | | | | Azul Yeboah, | | | | | | MD [address] | | | | | | [place] | | | | | | [place] [address] | | | | | | [phone] | | | | | | | [...] | | | | | | [place] [address] | | | | | | [phone] | | | | | | | | +--------+ + + + + documented as of this encounter Visit Diagnoses Not on filedocumented in this encounter"
--- OUTSIDE RECORDS SUMMARY | ~2020-02-18 | XMS | Encounter Summary ---
Demographics + + + | Address | [address] | | | [place] [address] | + + + | Home Phone [...] Team Providers + +------+ + | Care Specifications Checker Name | Role | Phone | + [...] | | | to excess | [place] [address] | | | | | | calories | Phone: | | | | | | without | [phone] | | | | | | serious | Fax: | | | | | | comorbidity | [phone] | | | | | | with [...] | | | | | | | [place] [facility] | | | | | | [...] + + + + | 07/17/ | Hospital | [facility] | Erika Ernst, | Essential | | 2019 | Encounter | HOSPITAL NUTRITION | DO [address] | hypertension, | | | | SERVICES [address] | [place] [address] | malignant; Simple | | | | DR [place], [place] | [phone] | obesity; Body mass | | | | [address] | | index 50.0-59.9, | | | | [phone] | Janel Webster, | adult (HCC); Dietary | | | | | RD [...] MG LOZG | | | 0 | 09/01/20 | | | | | | | [...] tablet by | 20 | 0 | 07/17/20 | | | amoxicillin-clavulan | mouth 2 [...] | 04/12/20 | | | (VITAMIN D3) 04641 | mouth Once a week | tablet [...] Furoate-Vilanterol | lungs. | | | | 9 | | (OLIVERO ELLIPTA IN) | | | | | [...] (ALTACE) | Take 1 capsule by | 30 | 11 | 07/17/20 | | | 2.5 mg capsule | mouth Daily. | capsule | | 19 | 9 | + [...] encounter Progress Notes Janel Webster, RD - 07/18/2019 1:16 PM PDTAssessment: Dx:obesity, hypothyroidism Pt reports increased stress since last visit, TSH levels off and getting biopsy for thyroid . States she has been traveling more and stress eating. States she has increased her iron hubbard pplemented to ferrous sulfate 325mg x 3/d w/ orange juice. Food recall:B: L: skips or fruit D: duran burrito or veggie burger, salad snack: fruit. No physical activity due to busy sche dule and still continues pain in her wrist. Height:5'10 Current wt:384# Last RD visit wt: 380# BMI:55 Labs:TSH 4.25, ferritin 11.3 Nutrition Diagnosis: Excessive energy intake r/t stress eating AEB pt report and food recal l report. Intervention: Wt gain 4# since last visit.Discussed the multiple factors she has going on that can cause it difficult to lose weight (stress eating, stress, hypothyroidism, etc.). Reeducated on the importance of physical activity even if it is stretching. We discussed intuitive eating (ho nor your feelings without using foods, make peace with food, honor your hunger..etc.) provid ed a hunger scale worksheet to try to help with portion control. Monitor/Evaluation: Will monitor wt trends, nutrition related labs and food diary. Scheduled for a revisit in 6 to 8 weeks. Time spent with pt: 35 mins Electronically Signed by: Janel Webster RD 07/18/2019 13:17 documented in this encounter Plan of Treatment +--------+ + + + + | Date | Type | Specialty | Care Team | Description | +--------+ + + + + | 02/18/ | Appointment | Rehabilitation | Erika Ernst, | | | 2019 | | | DO | | | | | | [place] [address] | | | | | | [phone] | | | | | | | | | | | | Julia Fisher, | | | | | | PT | | +--------+ + + + + | 02/18/ | Appointment | Rehabilitation | Erika Ernst, | | | 2019 | | | DO [address] | | | | | | [place] [address] | | | | | | [phone] | | | | | | | | | | | | Genesis Ayon OT | | +--------+ + + + + | 02/25/ | Office | Primary Care | Erika Ernst, | | | 2019 | Visit | | DO [address] | | | | | | [place] [address] | | | | | | [phone] | | | | | | | [...] | | | | | [place] [address] | | | | | | [phone] | | | | | | | | +--------+ + + + + | 02/27/ | Appointment | Radiology | Dhara, | | | 2019 | | | [address] | | | | | | [address] [facility], | | | | | | [place] [address] | | | | | | [phone] | | | | | | | | +--------+ + + + + | 03/04/ | Appointment | Rehabilitation | Genesis Ayon OT | | | 2019 | | | | | +--------+ + + + + | 03/09/ | Office | Orthopedic Surgery | Jeffrey Gandhi, | | | 2019 | Visit | | [address] | | | | | | [place] [address] | | | | | | [phone] | | | | | | | [...] [place] | | | | | | [address] | | | | | | [phone] | | | | | | | [...] | | | | | [place] [address] | | | | | | [phone] | | | | | | | | | | | | Azul Yeboah, | | | | | | MD [address] | | | | | | [place] | | | | | | [place] [address] | | | | | | [phone] | | | | | | | | +--------+ + + + + | 04/08/ | Appointment | Nutrition | Janel Webster | | | 2019 | | | [place], [place]HOA | | +--------+ + + + + | 05/21/ | Office | Neurology | Dhara, | | | 2020 | Visit | | Cody, TONGUE BINDER [address] | | | | | | [address] [facility] [place], | | | | | | [place] [address] | | | | | | [phone] | | | | | | | | +--------+ + + + + documented as of this encounter Visit Diagnoses + + | Diagnosis | + + | Essential hypertension, malignant | + + | Simple obesity Obesity, unspecified | + + | Body mass index 50.0-59.9, adult (HCC) Body Mass Index 50.0-59.9, adult | + + | Dietary counseling and surveillance Dietary surveillance and counseling | + + documented in this encounter"
--- OUTSIDE RECORDS SUMMARY | ~2020-02-18 | XMS | Encounter Summary ---
Demographics + + + | Address | [address] | | | [place] [address] | + + + | Home Phone [...] Team Providers + +------+ + | Care Underwater Trapper Name | Role | Phone | + +------+ + PCP | Unavailable | + +------+ + Encounter Details +--------+ + + + + | Date | Type | Department | Care Team | Description | +--------+ + + + + | 05/12/ | Hospital | [facility] | Camille Bush | | | 2017 | Encounter | [facility] | MCKENZIE Matt [address] | | | | | [facility] [address] | [address]th [facility], | | | | | [address]TH [facility], | [place] [address] | | | | | [place] [address] | [phone] | | | | | [phone] | | | +--------+ + + + [...] | | | | | [place] [address] | | | | | | [phone] | | | | | | | | | | | | Julia Fisher, | | | | | | PT | | +--------+ + + + + | 02/18/ | Appointment | Rehabilitation | Erika Ernst, | | | 2019 | | | DO [address] | | | | | | [place] [address] | | | | | | [phone] | | | | | | | | | | | | Genesis Ayon, OT | | +--------+ + + + + | 02/25/ | Office | Primary Care | Erika Ernst, | | | 2019 | Visit | | DO [address] [place] | | | | | | [place] [address] | | | | | | [phone] | | | | | | | [...] | | | | | [place] [address] | | | | | | [phone] | | | | | | | | +--------+ + + + + | 02/27/ | Appointment | Radiology | Dhara, | | | 2019 | | | [address]WA[address] | | | [address] [place], | | | | | | [place] [address] | | | | | | [phone] | | | | | | | [...] ST | | | | | | [place] [address] | | | | | | [phone] | | | | | | | [...] 03/19/ | Office | Obstetrics and | Avery, Emily | | | 2020 | Visit | Gynecology | DO Rad[address] | | | | | | [address] | | | | | | [place], [place] | | | | | | [address] | | | | | | [phone] | | | | | | | [...] | | | | | [place] [address] | | | | | | [phone] | | | | | | | | | | | | Azul Yeboah, | | | | | | MD [address] | | | | | | [place] | | | | | | [place] [address] | | | | | | [phone] | | | | | | | [...] | | | | | | [place] [address] | | | | | | [phone] | | | | | | | | +--------+ + + + + documented as of this encounter Visit Diagnoses Not on filedocumented in this encounter"
--- OUTSIDE RECORDS SUMMARY | ~2020-02-18 | XMS | Encounter Summary ---
Demographics + + + | Address | [address] | | | [place] [address] | + + + | Home Phone [...] + +------+ + | Care Director Of Integrated Marketing Name | Role | Phone | [...] 12/25/ | Telephone | [facility] | Evelyn Malik, | Care Coordination | | 2019 | | [facility] | Case | | | | | [facility] [address] | Hand Sprayer-Clinical | | | | | 4TH [facility] [place], | | | | | | [place] [address] | | | | | | [phone] | | | +--------+ + + + [...] | | | | | [place] [address] | | | | | | [phone] | | | | | | | | | | | | Julia Fisher, | | | | | | PT | | +--------+ + + + + | 02/18/ | Appointment | Rehabilitation | Erika Ernst, | | | 2019 | | | DO [address] [place] | | | | | | [place] [address] | | | | | | [phone] | | | | | | | | | | | | Genesis Ayon OT | | +--------+ + + + + | 02/25/ | Office | Primary Care | Erika Ernst, | | | 2019 | Visit | | DO [address] [place] | | | | | | [place] [address] | | | | | | [phone] | | | | | | | [...] | | | | | [place] [address] | | | | | | [phone] | | | | | | | | +--------+ + + + + | 02/27/ | Appointment | Radiology | Dhara, | | | 2019 | | | [address] | | | | | | 4TH [facility], | | | | | | [place] [address] | | | | | | [phone] | | | | | | | | +--------+ + + + + | 03/04/ | Appointment | Rehabilitation | Genesis Ayon OT | | | 2019 | | | | | +--------+ + + + + | 03/09/ | Office | Orthopedic Surgery | Jeffrey Gandhi, | | | 2019 | Visit | | [address] | | | | | | [place] [address] | | | | | | [phone] | | | | | | | [...] [place] | | | | | | [address] | | | | | | [phone] | | | | | | | [...] | | | | | [place] [address] | | | | | | [phone] | | | | | | | | | | | | Azul Yeboah, | | | | | | MD [address] | | | | | | [place] | | | | | | [place] [address] | | | | | | [phone] | | | | | | | [...] | | | | | | [place] [address] | | | | | | [phone] | | | | | | | | +--------+ + + + + documented as of this encounter Visit Diagnoses Not on filedocumented in this encounter"
--- OUTSIDE RECORDS SUMMARY | ~2020-02-18 | XMS | Encounter Summary ---
Demographics + + + | Address | [address] | | | [place] [address] | + + + | Home Phone [...] Team Providers + +------+ + | Care Chromosomal Disorders Counselor Name | Role | Phone | + +------+ + PCP | Unavailable | + +------+ + Encounter Details +--------+ + + + + | Date | Type | Department | Care Team | Description | +--------+ + + + + | 09/12/ | [facility] | [facility] | Amaya Varner NP | | | 2016 | Encounter | [facility] | [address] | | | | | MEDICAL CLIN[facility] [address] | [place], [place] | | | | | [address] [place], | [address] | | | | | [place] [address] | [phone] | | | | | [phone] | | | +--------+ + + + [...] Rehabilitation | Erika Ernst, | | | 2020 | | | DO [facility] | | | | | | [place], [place] [address] | | | | | | [phone] | | | | | | | | | | | | Julia Fisher, | | | | | | PT | | +--------+ + + + + | 02/18/ | Appointment | Rehabilitation | Erika Ernst, | | | 2019 | | | DO [address] [place] | | | | | | [place] [address] | | | | | | [phone] | | | | | | | | | | | | Genesis Ayon, SUSAN | | +--------+ + + + + | 02/25/ | Office | Primary Care | Erika Ernst, | | | 2019 | Visit | | DO [address] [place] | | | | | | [place] [address] | | | | | | [phone] | | | | | | | [...] | | | | | [place] [address] | | | | | | [phone] | | | | | | | | +--------+ + + + + | 02/27/ | Appointment | Radiology | Dhara, | | | 2019 | | | [address] | | | | | | 4TH [facility] [place], | | | | | | [place] [address] | | | | | | [phone] | | | | | | | [...] | | | | | [place] [address] | | | | | | [phone] | | | | | | | [...] [place] | | | | | | [address] | | | | | | [phone] | | | | | | | [...] | | | | | [place] [address] | | | | | | [phone] | | | | | | | | | | | | Azul Yeboah, | | | | | | MD [address] | | | | | | [place] | | | | | | [place] [address] | | | | | | [phone] | | | | | | | [...] | | | | | | [place] [address] | | | | | | [phone] | | | | | | | | +--------+ + + + + documented as of this encounter Visit Diagnoses Not on filedocumented in this encounter"
--- OUTSIDE RECORDS SUMMARY | ~2020-02-18 | XMS | Encounter Summary ---
Demographics + + + | Address | [address] | | | [place] [address] | + + + | Home Phone [...] Team Providers + +------+ + | Care Channel Director Name | Role | Phone | + +------+ + | Erika Ernst DO | PCP | | + +------+ + Reason for Visit +--------+ + | Reason | Comments | +--------+ + | Other | [facility] Wrist | +--------+ + Encounter Details +--------+ + + + + | Date | Type | Department | Care Team | Description | +--------+ + + + + | 05/13/ | Telephone | [facility] | Orenbrittny Inocencio | Other ([facility] ED R | | 2019 | | [facility] | MD [address] | [facility]) | | | | [address] [place] | [address] | | | | | [place], [place] | [place] [address] | | | | | [address] | [phone] | | | | | [phone] | | | +--------+ + + + [...] | | 2019 | | | DO [facility] | | | | | | [place] [address] | | | | | | [phone] | | | | | | | | | | | | Julia Fisher, | | | | | | PT | | +--------+ + + + + | 02/18/ | Appointment | Rehabilitation | Erika Ernst, | | | 2019 | | | DO [address] [place] | | | | | | [place] [address] | | | | | | [phone] | | | | | | | | | | | | Genesis Ayon OT | | +--------+ + + + + | 02/25/ | Office | Primary Care | Erika Ernst, | | | 2019 | Visit | | DO [address] [place] | | | | | | [place] [address] | | | | | | [phone] | | | | | | | [...] | | | | | [place] [address] | | | | | | [phone] | | | | | | | | +--------+ + + + + | 02/27/ | Appointment | Radiology | Dhara, | | | 2019 | | | [address] | | | | | | [address] [facility], | | | | | | [place] [address] | | | | | | [phone] | | | | | | | [...] [place] | | | | | | [place] [address] | | | | | | [phone] | | | | | | | [...] [place] | | | | | | [address] | | | | | | [phone] | | | | | | | [...] | | | | | [place] [address] | | | | | | [phone] | | | | | | | | | | | | Azul Yeboah, | | | | | | MD [address] | | | | | | [place] | | | | | | [place] [address] | | | | | | [phone] | | | | | | | [...] | | | | | | [place] [address] | | | | | | [phone] | | | | | | | | +--------+ + + + + documented as of this encounter Visit Diagnoses Not on filedocumented in this encounter"
--- OUTSIDE RECORDS SUMMARY | ~2020-02-18 | XMS | Encounter Summary ---
Demographics + + + | Address | [address] | | | [place] [address] | + + + | Home Phone | | + + + | Preferred Language | Unknown | + + + | Marital Status | Single | + + + | Sabianist Affiliation | Unknown | + + + [...] + +------+ + | Care Director Of Web Marketing Name | Role | Phone | [...] | 2017 | | [facility] | DO [address] | | | | | MEDICAL CLINIC [address] | [place] [address] | | | | | [address] [place], | [phone] | | | | | [place] [address] | | | | | | [phone] | | | +--------+--------+ + + + [...] | | | | | [place] [address] | | | | | | [phone] | | | | | | | | | | | | Julia Fisher, | | | | | | PT | | +--------+ + + + + | 02/18/ | Appointment | Rehabilitation | Erika Ernst, | | | 2019 | | | DO [address] [place] | | | | | | [place] [address] | | | | | | [phone] | | | | | | | | | | | | Genesis Ayon OT | | +--------+ + + + + | 02/25/ | Office | Primary Care | Erika Ernst, | | | 2019 | Visit | | DO [address] [place] | | | | | | [place] [address] | | | | | | [phone] | | | | | | | [...] | | | | | [place] [address] | | | | | | [phone] | | | | | | | | +--------+ + + + + | 02/27/ | Appointment | Radiology | Dhara, | | | 2019 | | | [address] | | | | | | 4TH [facility], | | | | | | [place] [address] | | | | | | [phone] | | | | | | | [...] | | | | | [place] [address] | | | | | | [phone] | | | | | | | [...] [place] | | | | | | [address] | | | | | | [phone] | | | | | | | [...] | | | | | [place] [address] | | | | | | [phone] | | | | | | | | | | | | Azul Yeboah, | | | | | | MD [address] | | | | | | [place] | | | | | | [place] [address] | | | | | | [phone] | | | | | | | | +--------+ + + + + | 04/08/ | Appointment | Nutrition | Janel Webster | | | 2019 | | | G, RD | | +--------+ + + + + | 05/21/ | Office | Neurology | Dhara, | | 2019 | Visit | | [address] | | | | | [address] [place], | | | | | | [place] [address] | | | | | | [phone] | | | | | | | | +--------+ + + + + documented as of this encounter Visit Diagnoses Not on filedocumented in this encounter"
--- OUTSIDE RECORDS SUMMARY | ~2020-02-18 | XMS | Encounter Summary ---
Demographics + + + | Address | [address] | | | [place] [address] | + + + | Home Phone [...] Team Providers + +------+ + | Care Hydrant Setter Name | Role | Phone | [...] | Specialty | Orthopedic | Diagnoses | [facility] | | | Services | Surgery | Acute right | Erika A DO | Orthopedic | | | Required | | ankle pain | [address] | [address] | | | | | Procedures | [place], | [place] | | | | | [place] | [place] [address] | [place], [place] | | | | | | Phone: | [address] | | | | | | [phone] | Phone: | | | | | | Fax: | [phone] | | | | | | [phone] | Fax: | | | | | | | [phone] | +--------+ + + + + + Reason for Visit + + + | Reason | Comments | + + + | Follow-up | Blood pressure | + + + | URI | 3.5 weeks | + + + Encounter Details +--------+---------+ + + + | Date | Type | Department | Care Team | Description | +--------+---------+ + + + | 07/17/ | Office | [facility] | Erika Ernst, | Essential | | 2019 | Visit | [facility] | DO [address] | hypertension | | | | [facility] | [place] [address] | (Primary Dx); | | | | [address] [place], | [phone] | Environmental | | | | [place] [address] | | allergies; Acute | | | | [phone] | | recurrent frontal | | | | | | sinusitis; Acute | | | | | | right ankle pain | +--------+---------+ + + + Social History [...] + | Blood Pressure | 142/92 | 07/17/2019 7:55 AM | | | | | PDT | | + + + + + | Pulse | 103 | 07/17/2019 7:55 AM | | | | | PDT | | + + + + + | Temperature | - | - | | + + + + + | Respiratory Rate | 18 | 07/17/2019 7:55 AM | | | | | PDT | | + + + + + | Oxygen Saturation | 99% | 07/17/2019 7:55 AM | | | | | PDT | | + + + + + | Inhaled Oxygen | - | - | | | Concentration | | | | + + + + + | Weight | 175.1 kg (386 lb) | 07/17/2019 7:55 AM | | | | | PDT | | + + + + + | Height | 177.8 cm (5' 10") | 07/17/2019 7:55 AM | | | | | PDT | | + + + + + | Body Mass Index | 55.39 | 07/17/2019 7:55 AM | | | | | PDT | | + + + + + documented in this encounter Progress Erika Cespedes DO - 07/17/2019 8:00 AM PDTFormatting of this note might be different fro m the original. Subjective: Patient ID: Andrea Suh is a 29 y.o. female. Here to FU on HTN. Has been keeping record at home and intermittent elevations and BP is el evated today. Agrees to trial ramipril for this. She has been taking some sudafed off and on and cautioned this can raise BP. Recommended low salt diet. She has allergies and is seeing Retty for allergy shots. She has had sinus congestion for 3 weeks and has increase pain and pressure in the frontal sinus area and feels like it is now with sinus infection. Sinus drng. No SOB or cough. Ears full but no pain. Taking allergy meds with no relief. Has felt f everish. We reviewed her sinus CT done in November with minimal sinus issues at that time. Anot her issue is right ankle pain and swelling. She had surgery on the ankle in 2016 and has con tinued daily stretches. She states the past few weeks is with increase pain and swelling med ial along her scar line. No redness or hotness of the area. Denies new injury. Non-smoker.. Review of Systems As above Objective: BP (!) 142/92 | Pulse 103 | Resp 18 | Ht 1.778 m (5' 10") | Wt (!) 175.1 kg (386 lb) | SpO2 99% | BMI 55.39 kg/m Physical Exam Constitutional: She appears well-developed and well-nourished. No distress. HENT: Head: Normocephalic. Mouth/Throat: Oropharynx is clear and moist. No oropharyngeal exudate. Bilateral TM's clear. Pain on palpation of the frontal sinus area. Eyes: Pupils are equal, round, and reactive to light. Conjunctivae and EOM are normal. Neck: Normal range of motion. Cardiovascular: Normal rate, regular rhythm and normal heart sounds. No murmur heard. Pulmonary/Chest: Effort normal and breath sounds normal. No respiratory distress. Musculoskeletal: She exhibits no deformity. Tender along the right ankle medial scar line with some mild swelling of the ankle but no r edness or increased warmth. No open areas. Lymphadenopathy: She has no cervical adenopathy. Skin: Skin is warm and dry. Capillary refill takes less than 2 seconds. Psychiatric: She has a normal mood and affect. Her behavior is normal. Judgment and thought content normal. Assessment: 1. Essential hypertension 2. Environmental allergies 3. Acute recurrent frontal sinusitis 4. Acute right ankle pain XR Ankle Right 3 + Vw AMB Referral to [facility] Plan: Start ramipril 2.5 mg daily for HTN. Monitor renal and FU in 2 weeks. Low salt diet. Tylor nue FU with ENT for allergies. Augmentin 875 mg BID for sinus infection. Xray the right ankl e and referral to ortho continue daily stretches. documented in this en counter Plan of Treatment +--------+ + + + + | Date | Type | Specialty | Care Team | Description | +--------+ + + + + | 02/18/ | Appointment | Rehabilitation | Erika Ernst, | | | 2019 | | | DO [address] [place] | | | | | | [place] [address] | | | | | | [phone] | | | | | | | | | | | | Julia Fisher, | | | | | | PT | | +--------+ + + + + | 02/18/ | Appointment | Rehabilitation | Erika Ernst, | | | 2019 | | | DO [address] [place] | | | | | | [place] [address] | | | | | | [phone] | | | | | | | | | | | | Genesis Ayon OT | | +--------+ + + + + | 02/25/ | Office | Primary Care | Erika Ernst, | | | 2019 | Visit | | DO [address] | | | | | | [place] [address] | | | | | | [phone] | | | | | | | [...] | | | | | [place] [address] | | | | | | [phone] | | | | | | | | +--------+ + + + + | 02/27/ | Appointment | Radiology | Dhara, | | | 2019 | | | [address]WA[address] | | | | | | [address] [place], | | | | | | [place] [address] | | | | | | [phone] | | | | | | | | +--------+ + + + + | 03/04/ | Appointment | Rehabilitation | Genesis Ayon OT | | | 2019 | | | | | +--------+ + + + + | 03/09/ | Office | Orthopedic Surgery | Jeffrey Gandhi, | | | 2019 | Visit | | [address] [facility] | | | | | | [place] [address] | | | | | | [phone] | | | | | | | [...] [place] | | | | | | [address] | | | | | | [phone] | | | | | | | [...] | | | | | [place] [address] | | | | | | [phone] | | | | | | | | | | | | Azul Yeboah, | | | | | | [address] | | | | | | [place] | | | | | | [place] [address] | | | | | | [phone] | | | | | | | [...] | | | | | | [place] [address] | | | | | | [phone] | | | | | | | | +--------+ + + + + + + +--------+ + + | Name | Type | Priori | Associated Diagnoses | Order Schedule | | | | ty | | | + + +--------+ + + | AMB Referral to [facility] | Outpatient | Routin | Acute right ankle | Ordered: 07/17/2019 | | [facility] | Referral | e | pain | | + + +--------+ + + documented as of this encounter Results XR Ankle Right 3 + Vw (07/17/2019 9:24 AM PDT) + + | Specimen | + + | | + + + + + | Impressions | Performed At | + + + | No acute finding Dictated by: Chris Bedolla Electronically | [facility] | | Signed by: Chris Bedolla on 07/17/2019 9:35 AM | | + + + + + + | Narrative | Performed At | + + + | EXAMINATION: XR ANKLE RIGHT 3 + VW HISTORY: right ankle pain , | [facility] | | prior surgery COMPARISON STUDY: 01/22/2015. 05/02/2019. | | | FINDINGS: Images in multiple views showed no significant soft tissue | | | or bony abnormality. If concern for acute fracture remains clinically | | | follow-up images in 10 to 14 days recommended. No distinct joint | | | degenerative changes. The ankle mortise is not widened.. | | + + + + + | Procedure Note | + + | Mitchel, Rad Results In - 07/17/2019 9:39 AM PDT EXAMINATION:XR ANKLE RIGHT 3 + | | VWHISTORY:right ankle pain , prior surgeryCOMPARISON STUDY:01/22/2015. | | 05/02/2019.FINDINGS:Images in multiple views showed no significant soft tissue or bony | | abnormality.If concern for acute fracture remains clinically follow-up images in 10 to | | 14 days recommended. No distinct joint degenerative changes. The ankle mortise is not | | widened..IMPRESSION: No acute findingDictated by: Chris Bedolla | |01/22/2015. 05/02/2019. | | | |FINDINGS: | |Images in multiple views showed no significant soft tissue or bony abnormality. | |If concern for acute fracture remains clinically follow-up images in 10 to 14 days recommen ded. No distinct joint degenerative changes. The ankle mortise is not widened.. | | | |IMPRESSION: | |No acute finding | [...] rhinitis, cause unspecified | + + | Acute recurrent frontal sinusitis Acute frontal sinusitis | + + | Acute right ankle pain | + + documented in this encounter
--- OUTSIDE RECORDS SUMMARY | ~2020-02-18 | XMS | Encounter Summary ---
Demographics + + + | Address | [address] | | | [place] [address] | + + + | Home Phone [...] Team Providers + +------+ + | Care Layboy Operator Name | Role | Phone | + +------+ + PCP | Unavailable | + +------+ + Encounter Details +--------+ + + + + | Date | Type | Department | Care Team | Description | +--------+ + + + + | 08/26/ | [facility] | Jessica Hoang, | | | 2012 | Encounter | [facility] | [address] | | | | | CENTER [address] | [place] | | | | | [place] | [address] | | | | | [address] | | | | | | [phone] | | | +--------+ + + + [...] | | | | | [place] [address] | | | | | | [phone] | | | | | | | | | | | | Julia Fisher, | | | | | | PT | | +--------+ + + + + | 02/18/ | Appointment | Rehabilitation | Erika Ernst, | | | 2019 | | | DO [address] | | | | | | [place] [address] | | | | | | [phone] | | | | | | | | | | | | Genesis Ayon, SUSAN | | +--------+ + + + + | 02/25/ | Office | Primary Care | Erika Ernst, | | | 2019 | Visit | | DO [address] | | | | | | [place] [address] | | | | | | [phone] | | | | | | | [...] | | | | | [place] [address] | | | | | | [phone] | | | | | | | | +--------+ + + + + | 02/27/ | Appointment | Radiology | Dhara, | | | 2019 | | | [address] | | | | | | 4TH [facility], | | | | | | [place] [address] | | | | | | [phone] | | | | | | | | +--------+ + + + + | 03/04/ | Appointment | Rehabilitation | Genesis Ayon OT | | | 2019 | | | | | +--------+ + + + + | 03/09/ | Office | Orthopedic Surgery | Jeffrey Gandhi, | | | 2019 | Visit | | [address] [facility] | | | | | | [place] [address] | | | | | | [phone] | | | | | | | [...] [place] | | | | | | [address] | | | | | | [phone] | | | | | | | [...] | | | | | [place] [address] | | | | | | [phone] | | | | | | | | | | | | Azul Yeboah, | | | | | | MD [address] | | | | | | [place] | | | | | | [place] [address] | | | | | | [phone] | | | | | | | [...] | | | | | | [place] [address] | | | | | | [phone] | | | | | | | | +--------+ + + + + documented as of this encounter Visit Diagnoses Not on filedocumented in this encounter"
--- OUTSIDE RECORDS SUMMARY | ~2020-02-18 | XMS | Encounter Summary ---
Demographics + + + | Address | [address] | | | [place] [address] | + + + | Home Phone [...] Author | [facility] | | | and [...] Team Providers + +------+ + | Care Food Service Worker [facility] Name | Role | Phone | + +------+ + | Erika Ernst DO | PCP | | + +------+ + Encounter Details +--------+ + + + + | Date | Type | Department | Care Team | Description | +--------+ + + + + | 01/23/ | Orders Only | [facility] [facility] | Emily Mittal DPM | | | 2019 | | [facility] | [address] [place] | | | | | [address] [place] [address] | [place], [place] | | | | | [place] | [address] | | | | | [address] | | | | | | [phone] | | | +--------+ + + + [...] | | 2019 | | | DO [facility] | | | | | | [place] [address] | | | | | | [phone] | | | | | | | | | | | | Julia Fisher, | | | | | | PT | | +--------+ + + + + | 02/18/ | Appointment | Rehabilitation | Erika Ernst, | | | 2019 | | | DO [address] [place] | | | | | | [place] [address] | | | | | | [phone] | | | | | | | | | | | | Genesis Ayon OT | | +--------+ + + + + | 02/25/ | Office | Primary Care | Erika Ernst, | | | 2019 | Visit | | DO [address] [place] | | | | | | [place] [address] | | | | | | [phone] | | | | | | | [...] | | | | | [place] [address] | | | | | | [phone] | | | | | | | | +--------+ + + + + | 02/27/ | Appointment | Radiology | Dhara, | | | 2019 | | | [address] | | | | | | [address] [place], | | | | | | [place] [address] | | | | | | [phone] | | | | | | | [...] | | | | | [place] [address] | | | | | | [phone] | | | | | | | [...] [place] | | | | | | [address] | | | | | | [phone] | | | | | | | [...] | | | | | [place] [address] | | | | | | [phone] | | | | | | | | | | | | Azul Yeboah, | | | | | | MD [address] | | | | | | [place] | | | | | | [place] [address] | | | | | | [phone] | | | | | | | [...] | | | | | | [place] [address] | | | | | | [phone] | | | | | | | | +--------+ + + + + documented as of this encounter Visit Diagnoses Not on filedocumented in this encounter"
--- OUTSIDE RECORDS SUMMARY | ~2020-02-18 | XMS | Encounter Summary ---
Demographics + + + | Address | [address] | | | [place] [address] | + + + | Home Phone | | + + + | Preferred Language | Unknown | + + + | Marital Status | Single | + + + | Jainism Affiliation | Unknown | + + + [...] Providers + +------+ + | Care Bridge Tender Name | Role | Phone | + +------+ + | Erika Ernst DO | PCP | | + +------+ + Reason for Visit +--------+ + | Reason | Comments | +--------+ + | Pain | | +--------+ + Encounter Details +--------+ + + + + | Date | Type | Department | Care Team | Description | +--------+ + + + + | 08/19/ | Telephone | [facility] [facility] | Luis Nichole MD | Pain | | 2019 | | HOSPITAL [facility] | [address] [place] | | | | | CLINIC [address] | [place], [place] | | | | | [address] [place], | [address] | | | | | [place] [address] | | | | | | [phone] | | | +--------+ + + + [...] | | | | | [place] [address] | | | | | | [phone] | | | | | | | | | | | | Julia Fisher, | | | | | | PT | | +--------+ + + + + | 02/18/ | Appointment | Rehabilitation | Erika Ernst, | | | 2019 | | | DO [address] | | | | | | [place] [address] | | | | | | [phone] | | | | | | | | | | | | Genesis Ayon OT | | +--------+ + + + + | 02/25/ | Office | Primary Care | Erika Ernst, | | | 2019 | Visit | | DO [address] | | | | | | [place] [address] | | | | | | [phone] | | | | | | | [...] | | | | | | [place] [address] | | | | | | [phone] | | | | | | | | +--------+ + + + + | 02/27/ | Appointment | Radiology | Dhara, | | | 2019 | | | [address] | | | | | | 4TH [facility], | | | | | | [place] [address] | | | | | | [phone] | | | | | | | | +--------+ + + + + | 03/04/ | Appointment | Rehabilitation | Genesis Ayon OT | | | 2019 | | | | | +--------+ + + + + | 03/09/ | Office | Orthopedic Surgery | Jeffrey Gandhi, | | | 2019 | Visit | | [address] | | | | | | [place] [address] | | | | | | [phone] | | | | | | | [...] [place] | | | | | | [address] | | | | | | [phone] | | | | | | | [...] | | | | | [place] [address] | | | | | | [phone] | | | | | | | | | | | | Azul Yeboah, | | | | | | MD [address] | | | | | | [place] | | | | | | [place] [address] | | | | | | [phone] | | | | | | | | +--------+ + + + + | 04/08/ | Appointment | Nutrition | Janel Webster | | | 2019 | | | [place], [place] | | +--------+ + + + + | 05/21/ | Office | Neurology | Hdara, | | | 2020 | Visit | | [address] | | | | | [address] [place], | | | | | | [place] [address] | | | | | | [phone] | | | | | | | | +--------+ + + + + documented as of this encounter Visit Diagnoses Not on filedocumented in this encounter"
--- OUTSIDE RECORDS SUMMARY | ~2020-02-18 | XMS | Encounter Summary ---
Demographics + + + | Address | [address] | | | [place] [address] | + + + | Home Phone [...] Providers + +------+ + | Care Chief Crew Scheduler Name | Role | Phone | + [...] | [facility] [address] | [place] [address] | | | | | [address] [place], | [phone] | | | | | [place] [address] | | | | | | [phone] | | | +--------+ + + + [...] | | | | | [place] [address] | | | | | | [phone] | | | | | | | | | | | | Julia Fisher, | | | | | | PT | | +--------+ + + + + | 02/18/ | Appointment | Rehabilitation | Erika Ernst, | | | 2019 | | | DO [address] [place] | | | | | | [place] [address] | | | | | | [phone] | | | | | | | | | | | | Genesis Ayon OT | | +--------+ + + + + | 02/25/ | Office | Primary Care | Erika Ernst, | | | 2019 | Visit | | DO [address] [place] | | | | | | [place] [address] | | | | | | [phone] | | | | | | | [...] | | | | | [place] [address] | | | | | | [phone] | | | | | | | | +--------+ + + + + | 02/27/ | Appointment | Radiology | Dhara, | | | 2019 | | | [address] | | | | | | [address]TH [facility], | | | | | | [place] [address] | | | | | | [phone] | | | | | | | [...] | | | | | [place] [address] | | | | | | [phone] | | | | | | | [...] [place] | | | | | | [address] | | | | | | [phone] | | | | | | | [...] | | | | | [place] [address] | | | | | | [phone] | | | | | | | | | | | | Azul Yeboah, | | | | | | MD [address] | | | | | | [place] | | | | | | [place] [address] | | | | | | [phone] | | | | | | | [...] | | | | | | [place] [address] | | | | | | [phone] | | | | | | | | +--------+ + + + + documented as of this encounter Visit Diagnoses Not on filedocumented in this encounter"
--- OUTSIDE RECORDS SUMMARY | ~2020-02-18 | XMS | Encounter Summary ---
Demographics + + + | Address | [address] | | | [place] [address] | + + + | Home Phone [...] + + + | Author | [facility] | | | and [place] | + + + | Organization | [facility] | | | and [...] Team Providers + +------+ + | Care Slot Floorperson Name | Role | Phone | + +------+ + | Erika Ernst DO | PCP | | + +------+ + Reason for Visit +---------+ + | Reason | Comments | +---------+ + | Results | Miguel Angel to trace Bartholomew vm is clear now, please call again | +---------+ + Encounter Details +--------+ + + + + | Date | Type | Department | Care Team | Description | +--------+ + + + + | 10/18/ | Telephone | [place] [facility] | Anastasia Alberto, | Results ([facility] to | | 2019 | | [facility] | [facility] [address] [facility] | [place], phone vm is | | | | [facility] [address] | [place] [address] | clear now, please | | | | [address] [place], | [phone] | call again) | | | | [place] [address] | | | | | | [phone] | | | +--------+ + + + [...] | | | | | [place] [address] | | | | | | [phone] | | | | | | | | | | | | Julia Fisher, | | | | | | PT | | +--------+ + + + + | 02/18/ | Appointment | Rehabilitation | Erika Ernst, | | | 2019 | | | DO [address] [place] | | | | | | [place] [address] | | | | | | [phone] | | | | | | | | | | | | Genesis Ayon, OT | | +--------+ + + + + | 02/25/ | Office | Primary Care | Erika Ernst, | | | 2019 | Visit | | DO [address] | | | | | | [place] [address] | | | | | | [phone] | | | | | | | [...] | | | | | | [place] [address] | | | | | | [phone] | | | | | | | | +--------+ + + + + | 02/27/ | Appointment | Radiology | Dhara, | | | 2019 | | | [address] | | | | | | [facility] | | | | | | [place] [address] | | | | | | [phone] | | | | | | | | +--------+ + + + + | 03/04/ | Appointment | Rehabilitation | Genesis Ayon OT | | | 2019 | | | | | +--------+ + + + + | 03/09/ | Office | Orthopedic Surgery | Jeffrey Gandhi, | | 2019 | Visit | | [address] | | | | | | [place] [address] | | | | | | [phone] | | | | | | | [...] [place] | | | | | | [address] | | | | | | [phone] | | | | | | | [...] | | | | | [place] [address] | | | | | | [phone] | | | | | | | | | | | | Azul Yeboah, | | | | | | [address] | | | | | | [place] | | | | | | [place] [address] | | | | | | [phone] | | | | | | | [...] | | | | | | [place] [address] | | | | | | [phone] | | | | | | | | +--------+ + + + + documented as of this encounter Visit Diagnoses Not on filedocumented in this encounter"
--- OUTSIDE RECORDS SUMMARY | ~2020-02-18 | XMS | Encounter Summary ---
Demographics + + + | Address | [address] | | | [place] [address] | + + + | Home Phone [...] Organization | [facility] | | | and [place] | + [...] Providers + +------+ + | Care Aircraft Cabin Cleaner Name | Role | Phone | + [...] Veronica Huerta, | Results, Imaging | | 2018 | | [facility] | HYDRAULIC PLUMBER HELPER | | | | | MEDICAL CLINIC [address] | | | | | | [address]TH [facility] [place], | | | | | | [place] [address] | | | | | | [phone] | | | +--------+ + + + [...] | | | | | [place] [address] | | | | | | [phone] | | | | | | | | | | | | Julia Fisher, | | | | | | PT | | +--------+ + + + + | 02/18/ | Appointment | Rehabilitation | Erika Ernst, | | | 2019 | | | DO [address] [place] | | | | | | [place] [address] | | | | | | [phone] | | | | | | | | | | | | Genesis Ayon OT | | +--------+ + + + + | 02/25/ | Office | Primary Care | Erika Ernst, | | | 2019 | Visit | | DO [address] | | | | | | [place] [address] | | | | | | [phone] | | | | | | | [...] | | | Visit | | [address] | | | | | | [place] [address] | | | | | | [phone] | | | | | | | | +--------+ + + + + | 02/27/ | Appointment | Radiology | Dhara, | | | 2019 | | | [address] | | | | | | [address] [place], | | | | | | [place] [address] | | | | | | [phone] | | | | | | | [...] | | | | | [place] [address] | | | | | | [phone] | | | | | | | [...] [place] | | | | | | [address] | | | | | | [phone] | | | | | | | [...] | | | | | [place] [address] | | | | | | [phone] | | | | | | | | | | | | Azul Yeboah, | | | | | | [address] | | | | | | [place] | | | | | | [place] [address] | | | | | | [phone] | | | | | | | [...] | | | | | | [place] [address] | | | | | | [phone] | | | | | | | | +--------+ + + + + documented as of this encounter Visit Diagnoses Not on filedocumented in this encounter"
--- OUTSIDE RECORDS SUMMARY | ~2020-02-18 | XMS | Encounter Summary ---
Demographics + + + | Address | [address] | | | [place] [address] | + + + | Home Phone | | + + + | Preferred Language | Unknown | + + + | Marital Status | Single | + + + | Christianity Affiliation | Unknown | + + + [...] Team Providers + +------+ + | Care Freight Car Loader Name | Role | Phone | + [...] Imaging | | 2019 | | [facility] | DO [address] | | | | | MEDICAL CLINIC [address] | [place] [address] | | | | | [address] [place], | [phone] | | | | | [place] [address] | | | | | | [phone] | | | +--------+ + + + [...] | | | | | [place] [address] | | | | | | [phone] | | | | | | | | | | | | Julia Fisher, | | | | | | PT | | +--------+ + + + + | 02/18/ | Appointment | Rehabilitation | Erika Ernst, | | | 2019 | | | DO [address] [place] | | | | | | [place] [address] | | | | | | [phone] | | | | | | | | | | | | [facility] | | +--------+ + + + + | 02/25/ | Office | Primary Care | Erika Ernst, | | | 2019 | Visit | | DO [address] | | | | | | [place] [address] | | | | | | [phone] | | | | | | | [...] | | | | | | [place] [address] | | | | | | [phone] | | | | | | | | +--------+ + + + + | 02/27/ | Appointment | Radiology | Dhara, | | | 2019 | | | DWAINE [address] | | | | [address] [place], | | | | | | [place] [address] | | | | | | [phone] | | | | | | | [...] [address] | | | | | | [place] [address] | | | | | | [phone] | | | | | | | [...] [place] | | | | | | [address] | | | | | | [phone] | | | | | | | [...] | | | | | [place] [address] | | | | | | [phone] | | | | | | | | | | | | Azul Yeboah, | | | | | | MD [address] | | | | | | [address] [place] | | | | | | [place] [address] | | | | | | [phone] | | | | | | | [...] | | | | | | [place] [address] | | | | | | [phone] | | | | | | | | +--------+ + + + + documented as of this encounter Visit Diagnoses Not on filedocumented in this encounter"
--- OUTSIDE RECORDS SUMMARY | ~2020-02-18 | XMS | Encounter Summary ---
Demographics + + + | Address | [address] | | | [place] [address] | + + + | Home Phone [...] Team Providers + +------+ + | Care Forestry Farm Laborer Name | Role | Phone | + +------+ + | Erika Ernst DO | PCP | | + +------+ + Reason for Visit + + + | Reason | Comments | + + + | Advice Only | | + + + Encounter Details +--------+ + + + + | Date | Type | Department | Care Team | Description | +--------+ + + + + | 12/11/ | Telephone | [facility] | Emily Avery | Advice Only | | 2020 | | [facility] | DO [address] | | | | | [address] | [address] | | | | | [address] [place], | [place], [place] | | | | | [place] [address] | [address] | | | | | [phone] | [phone] | | | | | | | [...] | | 2019 | | | DO [facility] | | | | | | [place] [address] | | | | | | [phone] | | | | | | | | | | | | Julia Fisher, | | | | | | PT | | +--------+ + + + + | 02/18/ | Appointment | Rehabilitation | Erika Ernst, | | | 2019 | | | DO [address] | | | | | | [place] [address] | | | | | | [phone] | | | | | | | | | | | | Genesis Ayon OT | | +--------+ + + + + | 02/25/ | Office | Primary Care | Erika Ernst, | | | 2019 | Visit | | DO [address] | | | | | | [place] [address] | | | | | | [phone] | | | | | | | [...] | | | | | [place] [address] | | | | | | [phone] | | | | | | | | +--------+ + + + + | 02/27/ | Appointment | Radiology | Dhara, | | | 2019 | | | [address] | | | | | | 4TH [facility], | | | | | | [place] [address] | | | | | | [phone] | | | | | | | | +--------+ + + + + | 03/04/ | Appointment | Rehabilitation | Genesis Ayon OT | | | 2019 | | | | | +--------+ + + + + | 03/09/ | Office | Orthopedic Surgery | Jeffrey Gandhi, | | | 2019 | Visit | | [address] | | | | | | [place] [address] | | | | | | [phone] | | | | | | | [...] [place] | | | | | | [address] | | | | | | [phone] | | | | | | | [...] | | | | | [place] [address] | | | | | | [phone] | | | | | | | | | | | | Azul Yeboah, | | | | | | MD [address] | | | | | | [place] | | | | | | [place] [address] | | | | | | [phone] | | | | | | | [...] | | | | | [address] [place], | | | | | | [place] [address] | | | | | | [phone] | | | | | | | | +--------+ + + + + documented as of this encounter Visit Diagnoses Not on filedocumented in this encounter"
--- OUTSIDE RECORDS SUMMARY | ~2020-02-18 | XMS | Encounter Summary ---
Demographics + + + | Address | [address] | | | [place] [address] | + + + | Home Phone [...] Providers + +------+ + | Care Forestry Technician Name | Role | Phone | + +------+ + PCP | Unavailable | + +------+ + Encounter Details +--------+ + + + + | Date | Type | Department | Care Team | Description | +--------+ + + + + | 08/02/ | [facility] | [place] [facility] | Erika Ernst, | | | 2015 | Encounter | [facility] | DO [address] | | | | | MEDICAL CLINIC [address] | [place] [address] | | | | | [address] [place], | [phone] | | | | | [place] [address] | | | | | | [phone] | | | +--------+ + + + [...] | | 2019 | | | DO [facility] | | | | | | [place], [place] [address] | | | | | | [phone] | | | | | | | | | | | | Julia Fisher, | | | | | | PT | | +--------+ + + + + | 02/18/ | Appointment | Rehabilitation | Erika Ernst, | | | 2019 | | | DO [address] | | | | | | [place] [address] | | | | | | [phone] | | | | | | | | | | | | Genesis Ayon, SUSAN | | +--------+ + + + + | 02/25/ | Office | Primary Care | Erika Ernst, | | | 2019 | Visit | | DO [address] | | | | | | [place] [address] | | | | | | [phone] | | | | | | | [...] | | | | | [place] [address] | | | | | | [phone] | | | | | | | | +--------+ + + + + | 02/27/ | Appointment | Radiology | Dhara, | | 2019 | | | [address] | | | | | | [address] [facility] [place], | | | | | | [place] [address] | | | | | | [phone] | | | | | | | [...] | | | | | [place] [address] | | | | | | [phone] | | | | | | | [...] [place] | | | | | | [address] | | | | | | [phone] | | | | | | | [...] | | | | | [place] [address] | | | | | | [phone] | | | | | | | | | | | | Azul Yeboah, | | | | | | MD [address] | | | | | | [place] | | | | | | [place] [address] | | | | | | [phone] | | | | | | | [...] | | | | | | [place] [address] | | | | | | [phone] | | | | | | | | +--------+ + + + + documented as of this encounter Visit Diagnoses Not on filedocumented in this encounter"
--- OUTSIDE RECORDS SUMMARY | ~2020-02-18 | XMS | Encounter Summary ---
Demographics + + + | Address | [address] | | | [place] [address] | + + + | Home Phone | | + + + | Preferred Language | Unknown | + + + | Marital Status | Single | + + + | Christian Affiliation | Unknown | + + + [...] Team Providers + +------+ + | Care Stenographer Print Shop Name | Role | Phone | + +------+ + PCP | Unavailable | + +------+ + Encounter Details +--------+ + + + + | Date | Type | Department | Care Team | Description | +--------+ + + + + | 04/26/ | [facility] | [facility] | Erika Ernst, | | | 2016 | Encounter | [facility] | DO [address] | | | | | MEDICAL CLINIC [address] | [place] [address] | | | | | [address] [place], | [phone] | | | | | [place] [address] | | | | | | [phone] | | | +--------+ + + + [...] | | | | | [place] [address] | | | | | | [phone] | | | | | | | | | | | | Julia Fisher, | | | | | | PT | | +--------+ + + + + | 02/18/ | Appointment | Rehabilitation | Erika Ernst, | | | 2019 | | | DO [address] | | | | | | [place] [address] | | | | | | [phone] | | | | | | | | | | | | Genesis Ayon, OT | | +--------+ + + + + | 02/25/ | Office | Primary Care | Erika Ernst, | | | 2019 | Visit | | DO [address] | | | | | | [place] [address] | | | | | | [phone] | | | | | | | [...] | | | | | | [place] [address] | | | | | | [phone] | | | | | | | | +--------+ + + + + | 02/27/ | Appointment | Radiology | Dhara, | | | 2019 | | | [address] | | | | | | 4TH [facility], | | | | | | [place] [address] | | | | | | [phone] | | | | | | | | +--------+ + + + + | 03/04/ | Appointment | Rehabilitation | Genesis Ayon OT | | 2019 | | | | | +--------+ + + + + | 03/09/ | Office | Orthopedic Surgery | Jeffrey Gandhi, | | 2019 | Visit | | [address] [facility] | | | | | | [place] [address] | | | | | | [phone] | | | | | | | [...] [place] | | | | | | [address] | | | | | | [phone] | | | | | | | [...] | | | | | [place] [address] | | | | | | [phone] | | | | | | | | | | | | Azul Yeboah, | | | | | | [address] | | | | | | [place] | | | | | | [place] [address] | | | | | | [phone] | | | | | | | | +--------+ + + + + | 07/08/ | Appointment | Nutrition | Janel Webster | | | 2019 | | | [place] | | +--------+ + + + + | 05/21/ | Office | Neurology | Dhara, | | | 2019 | Visit | | [address] | | | | | | [address] [place], | | | | | | [place] [address] | | | | | | [phone] | | | | | | | | +--------+ + + + + documented as of this encounter Visit Diagnoses Not on filedocumented in this encounter"
--- OUTSIDE RECORDS SUMMARY | ~2020-02-18 | XMS | Encounter Summary ---
Demographics + + + | Address | [address] | | | [place] [address] | + + + | Home Phone [...] Team Providers + +------+ + | Care Internal Revenue Agent Name | Role | Phone | + +------+ + | Erika Ernst DO | PCP | | + +------+ + Encounter Details +--------+ + + + + | Date | Type | Department | Care Team | Description | +--------+ + + + + | 06/17/ | Hospital | [facility] | Conversion | Diagnosis unknown | | 2018 | Encounter | CONVERSION DEP [address] | Transaction, | | | | | [address] | Provider Unknown | | | | | [place], [place] | [phone] | | | | | [address] | (Fax) | | | | | [phone] | | | +--------+ + + + [...] | 03/19/20 | | | (VITAMIN D3) 00062 | mouth Once a week | tablet [...] | | | DO [address] | | | | | | [place] [address] | | | | | | [phone] | | | | | | | | | | | | Julia Fisher, | | | | | | PT | | +--------+ + + + + | 02/18/ | Appointment | Rehabilitation | Erika Ernst, | | | 2019 | | | DO [address] | | | | | | [place] [address] | | | | | | [phone] | | | | | | | | | | | | Genesis Ayon OT | | +--------+ + + + + | 02/25/ | Office | Primary Care | Erika Ernst, | | | 2019 | Visit | | DO [address] | | | | | | [place] [address] | | | | | | [phone] | | | | | | | | +--------+ + + + + | 02/25/ | Appointment | Rehabilitation | Genesis Ayon OT | | | 2019 | | | | | +--------+ + + + + | 02/26/ | Virtual | Rehabilitation | Usha Rodriguez | | | 2019 | Office | | MD [facility] [address] | | | | Visit | | [address] [place] | | | | | | [place] [address] | | | | | | [phone] | | | | | | | | +--------+ + + + + | 02/27/ | Appointment | Radiology | Dhara, | | | 2019 | | | [address] | | | | | | [address]TH [facility], | | | | | | [place] [address] | | | | | | [phone] | | | | | | | [...] [place] | | | | | | [place] [address] | | | | | | [phone] | | | | | | | [...] [place] | | | | | | [address] | | | | | | [phone] | | | | | | | [...] | | | | | [place] [address] | | | | | | [phone] | | | | | | | | | | | | Azul Yeboah, | | | | | | MD [address] | | | | | | [place] | | | | | | [place] [address] | | | | | | [phone] | | | | | | | [...] | | | | | [address] [place], | | | | | | [place] [address] | | | | | | [phone] | | | | | | | [...]
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
--- OUTSIDE RECORDS SUMMARY | ~2020-02-18 | XMS | Encounter Summary ---
Demographics + + + | Address | [address] | | | [place] [address] | + + + | Home Phone [...] Team Providers + +------+ + | Care Dictaphone Operator Name | Role | Phone | [...] | | | | s (de | [place], [place] | [place] [address] | | | | | quervain) | [address] | Phone: | | | | | Pain in | Phone: | [phone] | | | | | right wrist | [phone] | Fax: | | | | | Procedures | Fax: | [phone] | | | | | OT TREAT | [phone] | | +--------+--------+ + + + + [...] | | [address] [place] | [place] [address] | wrist pain | | | | [place] | [phone] | | | | | [address] | | | | | | [phone] | Milla Gracia, OT | | +--------+ [...] Gracia, OT - 08/14/2018 4:58 PM PST [facility] OT [address] [place] [address] Occupational Therapy Daily Treatment Note Date: 08/14/2018 [...] in 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, 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 [...] | | | | | [place] [address] | | | | | | [phone] | | | | | | | | | | | | Julia Fisher, | | | | | | PT | | +--------+ + + + + | 02/18/ | Appointment | Rehabilitation | Erika Ernst, | | | 2019 | | | DO [address] | | | | | | [place] [address] | | | | | | [phone] | | | | | | | | | | | | Genesis Ayon OT | | +--------+ + + + + | 02/25/ | Office | Primary Care | Erika Ernst, | | | 2019 | Visit | | DO [address] | | | | | | [place] [address] | | | | | | [phone] | | | | | | | [...] | | | | | [place] [address] | | | | | | [phone] | | | | | | | | +--------+ + + + + | 02/27/ | Appointment | Radiology | Dhara, | | 2019 | | | [address] | | | | [address] [place], | | | | | | [place] [address] | | | | | | [phone] | | | | | | | | +--------+ + + + + | 03/04/ | Appointment | Rehabilitation | Genesis Ayon OT | | | 2019 | | | | | +--------+ + + + + | 03/09/ | Office | Orthopedic Surgery | Jeffrey Gandhi, | | | 2019 | Visit | | [address] | | | | | | [place] [address] | | | | | | [phone] | | | | | | | [...] [place] | | | | | | [address] | | | | | | [phone] | | | | | | | | +--------+ + + + + | 03/25/ | Appointment | Rehabilitation | Genesis Ayon, SUSAN | | | 2019 | | | | | +--------+ + + + + | 04/08/ | Office | Neurology | Erika Ernst, | | | 2019 | Visit | | DO [address] | | | | | | [place] [address] | | | | | | [phone] | | | | | | | | | | | | Azul Yeboah, | | | | | | MD [address] | | | | | | [place] | | | | | | [place] [address] | | | | | | [phone] | | | | | | | | +--------+ + + + + | 04/08/ | Appointment | Nutrition | Janel Webster | | | 2019 | | | [place] [place] | | +--------+ + + + + | 05/21/ | Office | Neurology | Dhara, | | | 2019 | Visit | | [address] | | | | | [address] [place], | | | | | | [place] [address] | | | | | | [phone] | | | | | | | | +--------+ + + + + documented as of this encounter Visit Diagnoses + + | Diagnosis | + + | Radial styloid tenosynovitis | + + | Right wrist pain Pain in joint, forearm | + + documented in this encounter"
--- OUTSIDE RECORDS SUMMARY | ~2020-02-18 | XMS | Encounter Summary ---
Demographics + + + | Address | [address] | | | [place] [address] | + + + | Home Phone [...] Team Providers + +------+ + | Care Ophthalmic Medical Technician Name | Role | Phone | + +------+ + PCP | Unavailable | + +------+ + Encounter Details +--------+ + + + + | Date | Type | Department | Care Team | Description | +--------+ + + + + | 05/14/ | [facility] | Caro Zendejas | | | 2013 | Encounter | [facility] | Vale, RECEIVER [address] | | | | | [facility] [address] | [facility] [place] | | | | | [address] [facility], | [address] | | | | | [place] [address] | [phone] | | | | | [phone] | | | +--------+ + + + [...] | | | | | [place] [address] | | | | | | [phone] | | | | | | | | | | | | Julia Fisher, | | | | | | PT | | +--------+ + + + + | 02/18/ | Appointment | Rehabilitation | Erika Ernst, | | | 2019 | | | DO [address] [place] | | | | | | [place] [address] | | | | | | [phone] | | | | | | | | | | | | Genesis Ayon, OT | | +--------+ + + + + | 02/25/ | Office | Primary Care | Erika Ernst, | | | 2019 | Visit | | DO [address] [place] | | | | | | [place] [address] | | | | | | [phone] | | | | | | | [...] | | | | | [place] [address] | | | | | | [phone] | | | | | | | | +--------+ + + + + | 02/27/ | Appointment | Radiology | Dhara, | | | 2019 | | | [address] | | | | | | [address] [facility], | | | | | | [place] [address] | | | | | | [phone] | | | | | | | | +--------+ + + + + | 03/04/ | Appointment | Rehabilitation | Genesis Ayon OT | | | 2019 | | | | | +--------+ + + + + | 03/09/ | Office | Orthopedic Surgery | Jeffrey Gandhi, | | | 2019 | Visit | | [address] | | | | | | [place] [address] | | | | | | [phone] | | | | | | | [...] [place] | | | | | | [address] | | | | | | [phone] | | | | | | | [...] | | | | | [place] [address] | | | | | | [phone] | | | | | | | | | | | | Azul Yeboah, | | | | | | MD [address] | | | | | | [place] | | | | | | [place] [address] | | | | | | [phone] | | | | | | | [...] | | | | | | [place] [address] | | | | | | [phone] | | | | | | | | +--------+ + + + + documented as of this encounter Visit Diagnoses Not on filedocumented in this encounter"
--- OUTSIDE RECORDS SUMMARY | ~2020-02-18 | XMS | Encounter Summary ---
Demographics + + + | Address | [address] | | | [place] [address] | + + + | Home Phone [...] Team Providers + +------+ + | Care Lock Installer Name | Role | Phone | + +------+ + | Erika Ernst DO | PCP | | + +------+ + Reason for Visit + + + | Reason | Comments | + + + | Medication Follow-up | | + + + Encounter Details +--------+ + + + + | Date | Type | Department | Care Team | Description | +--------+ + + + + | 09/17/ | Telephone | [place] [facility] | Erika Ernst, | Medication Follow-up | | 2018 | | [facility] | DO [address] | | | | | MEDICAL CL[facility] [address] | [facility] [place] [address] | | | | | [address] [place], | [phone] | | | | | [place] [address] | | | | | | [phone] | | | +--------+ + + + [...] | | | | | [place] [address] | | | | | | [phone] | | | | | | | | | | | | Julia Fisher, | | | | | | PT | | +--------+ + + + + | 02/18/ | Appointment | Rehabilitation | Erika Ernst, | | | 2019 | | | DO [address] | | | | | | [place] [address] | | | | | | [phone] | | | | | | | | | | | | Genesis Ayon OT | | +--------+ + + + + | 02/25/ | Office | Primary Care | Erika Ernst, | | | 2019 | Visit | | DO [address] | | | | | | [place] [address] | | | | | | [phone] | | | | | | | [...] | | | | | [place] [address] | | | | | | [phone] | | | | | | | | +--------+ + + + + | 02/27/ | Appointment | Radiology | Dhara, | | | 2019 | | | [address] | | | | | | [facility] [facility] [place], | | | | | | [place] [address] | | | | | | [phone] | | | | | | | [...] [address] | | | | | | [place] [address] | | | | | | [phone] | | | | | | | [...] [place] | | | | | | [address] | | | | | | [phone] | | | | | | | [...] | | | | | [place] [address] | | | | | | [phone] | | | | | | | | | | | | Azul Yeboah, | | | | | | MD [address] | | | | | | [place] | | | | | | [place] [address] | | | | | | [phone] | | | | | | | [...] | | | | | [address] [place], | | | | | | [place] [address] | | | | | | [phone] | | | | | | | | +--------+ + + + + documented as of this encounter Visit Diagnoses Not on filedocumented in this encounter"
--- OUTSIDE RECORDS SUMMARY | ~2020-02-18 | XMS | Encounter Summary ---
Demographics + + + | Address | [address] | | | [place] [address] | + + + | Home Phone [...] Team Providers + +------+ + | Care Clinical Office Technician Name | Role | Phone | [...] DR TUCK[address] | | | | | nodule | [place], | [place] | | | | | Procedures | [place] [address] | [place], [place] | | | | | [place] | Phone: | [address] | | | | | | [phone] | Phone: | | | | | | Fax: | [phone] | | | | | | [phone] | Fax: | | | | | | | [phone] | +--------+ + + + + + [...] | MEDICAL CLINIC [address] | [place] [address] | | | | | [address] [facility] [place], | [phone] | | | | | [place] [address] | | | | | | [phone] | | | +--------+ + + + [...] | 2019 | | | DO [address] | | | | | | [place] [address] | | | | | | [phone] | | | | | | | | | | | | Julia Fisher, | | | | | | PT | | +--------+ + + + + | 02/18/ | Appointment | Rehabilitation | Erika Ernst, | | | 2019 | | | DO [address] | | | | | | [place] [address] | | | | | | [phone] | | | | | | | | | | | | Genesis Ayon OT | | +--------+ + + + + | 02/25/ | Office | Primary Care | Erika Ernst, | | | 2019 | Visit | | DO [address] | | | | | | [place] [address] | | | | | | [phone] | | | | | | | [...] | | | | | [place] [address] | | | | | | [phone] | | | | | | | | +--------+ + + + + | 02/27/ | Appointment | Radiology | Dhara, | | | 2019 | | | [address] | | | | | | [address] [place], | | | | | | [place] [address] | | | | | | [phone] | | | | | | | [...] | | | | | [place] [address] | | | | | | [phone] | | | | | | | [...] [place] | | | | | | [address] | | | | | | [phone] | | | | | | | [...] | | | | | [place] [address] | | | | | | [phone] | | | | | | | | | | | | Azul Yeboah, | | | | | | MD [address] | | | | | | [place] | | | | | | [place] [address] | | | | | | [phone] | | | | | | | [...] | | | | | | [place] [address] | | | | | | [phone] | | | | | | | [...]
--- OUTSIDE RECORDS SUMMARY | ~2020-02-18 | XMS | Encounter Summary ---
Demographics + + + | Address | [address] | | | [place] [address] | + + + | Home Phone [...] Team Providers + +------+ + | Care Loadmaster Name | Role | Phone | + +------+ + | Erika Ernst DO | PCP | | + +------+ + Reason for Visit + + + | Reason | Comments | + + + | Advice Only | COVID 19 | + + + Encounter Details +--------+ + + + + | Date | Type | Department | Care Team | Description | +--------+ + + + + | 12/11/ | Telephone | [place] [facility] | Erika Ernst, | Advice Only (COVID | | 2020 | | [facility] | DO [address] | 19) | | | | MEDICAL CLINIC [address] | [place] [address] | | | | | [address] [place], | [phone] | | | | | [place] [address] | | | | | | [phone] | | | +--------+ + + + [...] | | | | | [place] [address] | | | | | | [phone] | | | | | | | | | | | | Julia Fisher, | | | | | | PT | | +--------+ + + + + | 02/18/ | Appointment | Rehabilitation | Erika Ernst, | | | 2019 | | | DO [address] | | | | | | [place] [address] | | | | | | [phone] | | | | | | | | | | | | Genesis Ayon OT | | +--------+ + + + + | 02/25/ | Office | Primary Care | Erika Ernst, | | | 2019 | Visit | | DO [address] | | | | | | [place] [address] | | | | | | [phone] | | | | | | | [...] | | | | | [place] [address] | | | | | | [phone] | | | | | | | | +--------+ + + + + | 02/27/ | Appointment | Radiology | Dhara, | | | 2019 | | | [address] | | | | | | [address] [place], | | | | | | [place] [address] | | | | | | [phone] | | | | | | | [...] [place] | | | | | | [place] [address] | | | | | | [phone] | | | | | | | [...] [place] | | | | | | [address] | | | | | | [phone] | | | | | | | [...] | | | | | [place] [address] | | | | | | [phone] | | | | | | | | | | | | Azul Yeboah, | | | | | | MD [address] | | | | | | [place] | | | | | | [place] [address] | | | | | | [phone] | | | | | | | [...] | | | | | | [place] [address] | | | | | | [phone] | | | | | | | | +--------+ + + + + documented as of this encounter Visit Diagnoses Not on filedocumented in this encounter"
--- OUTSIDE RECORDS SUMMARY | ~2020-02-18 | XMS | Encounter Summary ---
Demographics + + + | Address | [address] | | | [place] [address] | + + + | Home Phone [...] Team Providers + +------+ + | Care Operating Room Scheduler Name | Role | Phone | + +------+ + | Erika Ernst DO | PCP | | + +------+ + Reason for Visit +---------+ + | Reason | Comments | +---------+ + | Sunburn | | +---------+ + Encounter Details +--------+---------+ + + + | Date | Type | Department | Care Team | Description | +--------+---------+ + + + | 03/12/ | Office | [facility] [facility] | KleverKeitha Joie, | Sunburn (Primary | | 2019 | Visit | [facility] | DO [address] | Dx); Asthma due to | | | | MEDICAL CLINIC [address] | [place] [address] | environmental | | | | [address] [place], | [phone] | allergies | | | | [place] [address] | | | | | | [phone] | | | +--------+---------+ + + + [...] + | Blood Pressure | 126/84 | 03/12/2019 12:54 PM | | | | | PDT | | + + + + + | Pulse | 87 | 03/12/2019 12:54 PM | | | | | PDT | | + + + + + | Temperature | - | - | | + + + + + | Respiratory Rate | 16 | 03/12/2019 12:54 PM | | | | | PDT | | + + + + + | Oxygen Saturation | 98% | 03/12/2019 12:54 PM | | | | | PDT | | + + + + + | Inhaled Oxygen | - | - | | | Concentration | | | | + + + + + | Weight | 171 kg (377 lb) | 03/12/2019 12:54 PM | | | | | PDT | | + + + + + | Height | 177.8 cm (5' 10") | 03/12/2019 12:54 PM | | | | | PDT | | + + + + + | Body Mass Index | 54.09 | 03/12/2019 12:54 PM | | | | | PDT | | + + + + + documented in this encounter Progress Erika Cespedes DO - 03/12/2019 1:00 PM PDTFormatting of this note might be different fro m the original. Subjective: Patient ID: Andrea Suh is a 28 y.o. female. Here with complaints of sunburn from 12 days ago. The areas are upper thighs and back but a re healing. She does see dermatology routinely for skin surveillance and cancer prevention. She states she did have sun screen on but was out all day hiking. States is still painful. She is using aloe vera from a plant at home on the areas. VS stable. No fevers. She had asth ma attack she states a couple weeks ago and went to ER in [place] but has recovered. No chest pain or SOB today. Review of Systems As above Objective: BP 126/84 | Pulse 87 | Resp 16 | Ht 1.778 m (5' 10") | Wt (!) 171 kg (377 lb) | LMP | SpO2 98% | BMI 54.09 kg/m Physical Exam Constitutional: She is oriented to person, place, and time. She appears well-developed and well-nourished. No distress. Cardiovascular: Normal rate, regular rhythm and normal heart sounds. No murmur heard. Pulmonary/Chest: Effort normal and breath sounds normal. No respiratory distress. She has n o wheezes. She has no rales. Neurological: She is alert and oriented to person, place, and time. Skin: Skin is warm and dry. Capillary refill takes less than 2 seconds. Very sl pink upper thighs with nance and several sm dry areas that had blisters now peeled of f. Back is sl nance. Psychiatric: She has a normal mood and affect. Her behavior is normal. Assessment: 1. Sunburn 2. Asthma due to environmental allergies Plan: Well healing sunburn. Encouraged sun screen and hats and clothing to cover self. She wants something to apply so will send script for silvadene cr topically though the aloe vera is wo rking well. She will continue current asthma Tx. documented in this en counter Plan of Treatment +--------+ + + + + | Date | Type | Specialty | Care Team | Description | +--------+ + + + + | 02/18/ | Appointment | Rehabilitation | Erika Ernst, | | | 2019 | | | DO [address] | | | | | | [place] [address] | | | | | | [phone] | | | | | | | | | | | | Julia Fisher, | | | | | | PT | | +--------+ + + + + | 02/18/ | Appointment | Rehabilitation | Erika Ernst, | | | 2019 | | | DO [address] | | | | | | [place] [address] | | | | | | [phone] | | | | | | | | | | | | Genesis Ayon OT | | +--------+ + + + + | 02/25/ | Office | Primary Care | Erika Ernst, | | | 2019 | Visit | | DO [address] | | | | | | [place] [address] | | | | | | [phone] | | | | | | | [...] | | | | | | [place] [address] | | | | | | [phone] | | | | | | | | +--------+ + + + + | 02/27/ | Appointment | Radiology | Dhara, | | | 2019 | | | [address] | | | | | | [address] [place], | | | | | | [place] [address] | | | | | | [phone] | | | | | | | [...] [place] | | | | | | [place] [address] | | | | | | [phone] | | | | | | | [...] [place] | | | | | | [address] | | | | | | [phone] | | | | | | | [...] | | | | | [place] [address] | | | | | | [phone] | | | | | | | | | | | | Azul Yeboah, | | | | | | MD [address] | | | | | | [place] | | | | | | [place] [address] | | | | | | [phone] | | | | | | | [...] | | | | 4[address] [facility] [place], | | | | | | [place] [address] | | | | | | [phone] | | | | | | | | +--------+ + + + + documented as of this encounter Visit Diagnoses + + | Diagnosis | + + | Sunburn - Primary | + + | Asthma due to environmental allergies | + + documented in this encounter
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
--- OUTSIDE RECORDS SUMMARY | ~2020-02-18 | XMS | Encounter Summary ---
Demographics + + + | Address | [address] | | | [place] [address] | + + + | Home Phone [...] Team Providers + +------+ + | Care Renewable Energy Consultant Name | Role | Phone | [...] | | | | s (de | [place], [place] | [place] [address] | | | | | quervain) | [address] | Phone: | | | | | Pain in | Phone: | [phone] | | | | | right wrist | [phone] | Fax: | | | | | Procedures | Fax: | [phone] | | | | | OT TREAT | [phone] | | +--------+--------+ + + + + Encounter Details +--------+ + + + + | Date | Type | Department | Care Team | Description | +--------+ + + + + | 10/16/ | Hospital | [place] [facility] | Jeffrey Gandhi, | Radial styloid | | 2019 | Encounter | [facility] | [address] | tenosynovitis | | | | [address] [place] | [place] [address] | (Primary Dx); Right | | | | [place], [place] | [phone] | wrist pain | | | | [address] | | | | | | [phone] | Nakia Koo OT | | +--------+ [...] encounter Progress Notes Nakia Koo, OT - 10/16/2018 2:16 PM PST [facility] [address] [place] [address] Occupational Therapy Progress Assessment Date: 10/16/2018 Patient Information Patient Name: Andrea Suh Date of : 1990 Age: 28 y.o. Encounter Diagnoses Code Name Primary? M65.4 Radial styloid tenosynovitis Yes M25.531 Right wrist pain Date of Onset: 07/20/2018 Referring Provider: Jeffrey Gandhi MD Objective Pain Assessment: Pain Rating Pre Assessment: 2 Location: Pain ranges from 2-5/10 and is located within the wrist. Standardized Tests: QuickDASH (QD) Open a tight or new jar: 4 - Severe Difficulty Do heavy core oven tender: 4 - Severe Difficulty Carry a shopping [...] Difficulty Sleeping due to pain in UE: 1 - No Difficulty QuickDASH Mean Score (Calculated): 2.82 QuickDASH Disability/Symptom Score (Calculated): 45.45 QuickDASH Goal: The pt will have increased functional use of her right hand indicated by a QuickDASH score of 15% with pain no greater than 2/10 with daily activities by discharge QuickDASH Goal Status: PARTIALLY MET - QuickDASH score has decreased to 45% and pain ranges from 2-5/10 with daily activities. Range of Motion (measured in degrees): LUE AROM (degrees) L Forearm Pron: 80 L Forearm Sup: 63 L Wrist Flex: 53 L Wrist Ext : 55 L Wrist Radial Deviation : 17 L Wrist Ulnar Deviation: 25 Strength: Left Hand Strength - Foam Rubber Fabricator (lbs) L Foam Rubber Fabricator Trial 1: 60 L Foam Rubber Fabricator Trial Average: 60 L Three Jaw Payam Trial 1: 14 L Three Jaw Payam Trial Average: 14 L Lateral Pinch Trial 1: 16 L Lateral Pinch Trial Average: 16 Right Hand Strength - Foam Rubber Fabricator (lbs) R Foam Rubber Fabricator Trial 1: 33 R Foam Rubber Fabricator Trial Average: 33 R Three Jaw Payam Trial 1: 9 R Three Jaw Payam Trial Average: 9 R Lateral Pinch Trial 1: 10 R Lateral Pinch Trial Average: 10 Today's Treatment Patient Name: Andrea Steeleit/: 1990/ Start Time: 1003 Stop time: 1055 Duration: 52 minutes Timed Treatment Codes: 45 minutes # of OT Visits: 9.1 Visit Summary: S: I think I am doing better overall although the treatment has been interru pted. A: Measurable gains made in AROM since evaluaiton on 08/07/2018. Lifting restriction of 15 lbs is still in [address] until 11/15/2018. Focus of treatment has been on mobilization and s trengthening within lifting guidelines. Next Visit: Resistive exercises, functional supination and pronation Interventions HEP : TE (billed as part of TE charge below) Pt provided with hand helper set with 2 yellow bands and yellow therapy putty to address distribution engineer strengthening goals. OT Interventions: Manual Therapy Intervention #1 OT INTERVENTION 2: TE - 25 minutes: UBC for 4 minutes, alternating forward and backward ea ch minute, 2 minutes bilaterally, 2 minutes right hand only. Wrist roll - 2 lbs x 2, wall pu sh ups x 10 to increase strength and weight bearing tolerance. OT MANUAL THERAPY 1: 20 minutes - Graston technique for soft tissue mobilization, joint mob ilization of the wrist in all planes. OT MODALITY 1: Moist heat to volar and dorsal wrist and hand to increase circulation, joint and soft tissue mobility. Assessment 10/16/2018 - PROGRESS REVIEW - Andrea has made steady gains towards her rehab goals. She con tinues to have some deficits in AROM, pinch and distribution engineer strength. She has returned to modified work [...] pt has made progress with her R distribution engineer strength, but is still experiencing activity limiting [...] in 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, and distribution engineer and pinch weakness in the right hand [...] PARTIALLY MET - QuickDASH score has decreased to 45% and pain ranges from 2-5/10 with daily activities. OP OT Goals Goal 1: The pt will have right wrist and thumb AROM to 90% of the left by discharge Goal 1 Status: PARTIALLY MET - right wrist YANES is 88% of the left (293/331) Achieved for th e thumb. Goal 2: The pt will have right distribution engineer strength of 50 lbs by discharge Goal 2 Status: PARTIALLY MET - Right distribution engineer is 33 lbs, left is 60 lbs. Goal 3: The pt will have increased right pinch strength to 13 lbs by discharge Goal 3 Status: PARTIALLY MET - right pinch is 9 lbs, left is 15 lbs Goal 4: The pt will be independent and compliant with HEP Goal 4 Status: ONGOING Plan Date of Onset: 07/20/2018 Start of Care Date: 08/07/2018 Requested # of Visits: 24 visits 2x/week for 12 weeks Certification From: 08/07/2018 Certification To: 10/30/2018 Treatment Plan/Interventions OT [id number] - Therapeutic [id number] - Therapeutic [id number] - Self Care/Ho me Wogmlwhvuh52870 - Manual [id number] - Orthotic/Prosthetic Qbsmoqix71360 - Bsqsghnhee755 34 - Contrast Vxcs87518 - Paraffin BathSplinting Moist heat, cold therapy Patient and/or family has indicated understanding of treatment needs and actively participa everardo in the creation of this plan for care. Electronically signed by: Nakia Koo OT, 10/16/2018 14:16 Patient Name: Andrea Suh/: 1990/ signed by Nakia Koo OT at 10/16/2018 2:17 PM PSTdocumented in this encounter Plan of Treatment +--------+ + + + + | Date | Type | Specialty | Care Team | Description | +--------+ + + + + | 02/18/ | Appointment | Rehabilitation | Erika Ernst, | | | 2019 | | | DO [address] | | | | | | [place] [address] | | | | | | [phone] | | | | | | | | | | | | Julia Fisher, | | | | | | PT | | +--------+ + + + + | 02/18/ | Appointment | Rehabilitation | Erika Ernst, | | | 2019 | | | DO [address] [place] | | | | | | [place] [address] | | | | | | [phone] | | | | | | | | | | | | Genessi Ayon OT | | +--------+ + + + + | 02/25/ | Office | Primary Care | Erika Ernst, | | | 2019 | Visit | | DO [address] [place] [address] | | | | | | [place] [address] | | | | | | [phone] | | | | | | | [...] | | | | | [place] [address] | | | | | | [phone] | | | | | | | | +--------+ + + + + | 02/27/ | Appointment | Radiology | Dhara, | | | 2019 | | | [address] | | | | | | [address] [facility] [place], | | | | | | [place] [address] | | | | | | [phone] | | | | | | | | +--------+ + + + + | 03/04/ | Appointment | Rehabilitation | Genesis Ayon OT | | | 2019 | | | | | +--------+ + + + + | 03/09/ | Office | Orthopedic Surgery | Jeffrey Gandhi, | | 2019 | Visit | | [address] | | | | | | [place] [address] | | | | | | [phone] | | | | | | | [...] [place] | | | | | | [address] | | | | | | [phone] | | | | | | | [...] | | | | | [place] [address] | | | | | | [phone] | | | | | | | | | | | | Azul Yeboah, | | | | | | MD [address] | | | | | | [place] | | | | | | [place] [address] | | | | | | [phone] | | | | | | | [...] | | | | | | [place] [address] | | | | | | [phone] | | | | | | | | +--------+ + + + + documented as of this encounter Visit Diagnoses + + | Diagnosis | + + | Radial styloid tenosynovitis - Primary | + + | Right wrist pain Pain in joint, forearm | + + documented in this encounter"
--- OUTSIDE RECORDS SUMMARY | ~2020-02-18 | XMS | Encounter Summary ---
Demographics + + + | Address | [address] | | | [place] [address] | + + + | Home Phone [...] Team Providers + +------+ + | Care Conditioning Yard Supervisor Name | Role | Phone | + +------+ + PCP | Unavailable | + +------+ + Encounter Details +--------+ + + + + | Date | Type | Department | Care Team | Description | +--------+ + + + + | 07/16/ | [facility] | Spenser Roberts NP | | | 2012 | Encounter | [facility] | [address], | | | | | MEDICAL [facility] | [place] [address] | | | | | [facility] [facility], | [phone] | | | | | [place] [address] | | | | | | [phone] | | | +--------+ + + + [...] | | | | | [place] [address] | | | | | | [phone] | | | | | | | | | | | | Julia Fisher, | | | | | | PT | | +--------+ + + + + | 02/18/ | Appointment | Rehabilitation | Erika Ernst, | | | 2019 | | | DO [address] [place] | | | | | | [place] [address] | | | | | | [phone] | | | | | | | | | | | | Genesis Ayon OT | | +--------+ + + + + | 02/25/ | Office | Primary Care | Erika Ernst, | | | 2019 | Visit | | DO [address] | | | | | | [place] [address] | | | | | | [phone] | | | | | | | [...] | | | | | | [place] [address] | | | | | | [phone] | | | | | | | | +--------+ + + + + | 02/27/ | Appointment | Radiology | Dhara, | | | 2019 | | | [address] | | | | | | [address] [facility], | | | | | | [place] [address] | | | | | | [phone] | | | | | | | | +--------+ + + + + | 03/04/ | Appointment | Rehabilitation | Genesis Ayon OT | | | 2019 | | | | | +--------+ + + + + | 03/09/ | Office | Orthopedic Surgery | Jeffrey Gandhi, | | 2019 | Visit | | [address] | | | | | | [place] [address] | | | | | | [phone] | | | | | | | [...] [place] | | | | | | [address] | | | | | | [phone] | | | | | | | [...] | | | | | [place] [address] | | | | | | [phone] | | | | | | | | | | | | Azul Yeboah, | | | | | | MD [address] | | | | | | [place] | | | | | | [place] [address] | | | | | | [phone] | | | | | | | [...] | | | | | | [place] [address] | | | | | | [phone] | | | | | | | | +--------+ + + + + documented as of this encounter Visit Diagnoses Not on filedocumented in this encounter"
--- OUTSIDE RECORDS SUMMARY | ~2020-02-18 | XMS | Encounter Summary ---
Demographics + + + | Address | [address] | | | [place] [address] | + + + | Home Phone | | + + + | Preferred Language | Unknown | + + + | Marital Status | Single | + + + | Pentecostal Affiliation | Unknown | + + + | Race | Unknown | + + + | Ethnic Group | Unknown | + + + Author + + + | Author | [facility] | | | and [place] | + + + | Organization | [facility] | | | [...] Team Providers + +------+ + | Care Packaging Coordinator Name | Role | Phone | + +------+ + | Erika Ernst DO | PCP | | + +------+ + Reason for Visit + + + | Reason | Comments | + + + | Test Results | | + + + Encounter Details +--------+ + + + + | Date | Type | Department | Care Team | Description | +--------+ + + + + | 01/15/ | Telephone | [facility] | AveryEmily landry | Test Results | | 2020 | | [facility] | DO Rad[address] | | | | | [facility] | [address] | | | | | [address] MYRA OCASIO, | [facility], [place] | | | | | [place] [address] | [address] | | | | | [phone] | [phone] | | | | | | | [...] | | | | | [place] [address] | | | | | | [phone] | | | | | | | | | | | | Julia Fisher, | | | | | | PT | | +--------+ + + + + | 02/18/ | Appointment | Rehabilitation | Erika Ernst, | | | 2019 | | | DO [address] | | | | | | [place] [address] | | | | | | [phone] | | | | | | | | | | | | Genesis Ayon OT | | +--------+ + + + + | 02/25/ | Office | Primary Care | Erika Ernst, | | | 2019 | Visit | | DO [address] | | | | | | [place] [address] | | | | | | [phone] | | | | | | | [...] | | | | | [place] [address] | | | | | | [phone] | | | | | | | | +--------+ + + + + | 02/27/ | Appointment | Radiology | Dhara, | | | 2019 | | | [address] | | | | | | [address] [facility], | | | | | | [place] [address] | | | | | | [phone] | | | | | | | | +--------+ + + + + | 03/04/ | Appointment | Rehabilitation | Genesis Ayon OT | | | 2019 | | | | | +--------+ + + + + | 03/09/ | Office | Orthopedic Surgery | Jeffrey Gandhi, | | | 2019 | Visit | | [address] | | | | | | [place] [address] | | | | | | [phone] | | | | | | | [...] [place] | | | | | | [address] | | | | | | [phone] | | | | | | | [...] | | | | | [place] [address] | | | | | | [phone] | | | | | | | | | | | | Azul Yeboah, | | | | | | MD [address] | | | | | | [place] | | | | | | [place] [address] | | | | | | [phone] | | | | | | | [...] | | | | | | [place] [address] | | | | | | [phone] | | | | | | | | +--------+ + + + + documented as of this encounter Visit Diagnoses Not on filedocumented in this encounter"
--- OUTSIDE RECORDS SUMMARY | ~2020-02-18 | XMS | Encounter Summary ---
Demographics + + + | Address | [address] | | | [place] [address] | + + + | Home Phone [...] Team Providers + +------+ + | Care Laminator Hand Name | Role | Phone | + +------+ + PCP | Unavailable | + +------+ + Encounter Details +--------+ + + + + | Date | Type | Department | Care Team | Description | +--------+ + + + + | 12/28/ | [facility] | Heike Rodriguez, | | | 2013 | Encounter | [facility] | [facility] [address] | | | | | CENTER [address] | [place] | | | | | [place] | [address] | | | | | [address] | | | | | | [phone] | | | +--------+ + + + [...] | | | | | [place] [address] | | | | | | [phone] | | | | | | | | | | | | Julia Fisher, | | | | | | PT | | +--------+ + + + + | 02/18/ | Appointment | Rehabilitation | Erika Ernst, | | | 2019 | | | DO [address] | | | | | | [place] [address] | | | | | | [phone] | | | | | | | | | | | | Genesis Ayon, OT | | +--------+ + + + + | 02/25/ | Office | Primary Care | Erika Ernst, | | | 2019 | Visit | | DO [address] | | | | | | [place] [address] | | | | | | [phone] | | | | | | | [...] | | | | | | [place] [address] | | | | | | [phone] | | | | | | | | +--------+ + + + + | 02/27/ | Appointment | Radiology | Dhara, | | | 2019 | | | [address] | | | | | | [address] [facility], | | | | | | [place] [address] | | | | | | [phone] | | | | | | | | +--------+ + + + + | 03/04/ | Appointment | Rehabilitation | Genesis Ayon OT | | | 2019 | | | | | +--------+ + + + + | 03/09/ | Office | Orthopedic Surgery | Jeffrey Gandhi, | | 2019 | Visit | | [address] | | | | | | [place] [address] | | | | | | [phone] | | | | | | | [...] [place] | | | | | | [address] | | | | | | [phone] | | | | | | | [...] | | | | | [place] [address] | | | | | | [phone] | | | | | | | | | | | | Azul Yeboah, | | | | | | MD [address] | | | | | | [place] | | | | | | [place] [address] | | | | | | [phone] | | | | | | | [...] | | | | | | [place] [address] | | | | | | [phone] | | | | | | | | +--------+ + + + + documented as of this encounter Visit Diagnoses Not on filedocumented in this encounter"
--- OUTSIDE RECORDS SUMMARY | ~2020-02-18 | XMS | Encounter Summary ---
Demographics + + + | Address | [address] | | | [place] [address] | + + + | Home Phone [...] Providers + +------+ + | Care Manager Target Name | Role | Phone | + +------+ + | Erika Ernst DO | PCP | | + +------+ + Reason for Visit Diagnostic/Screening (Routine) +--------+--------+ [...] | | | of left | [place] [address] | [address] | | | | | ankle, | Phone: | Phone: | | | | | subsequent | [phone] | [phone] | | | | | encounter | Fax: | Fax: | | | | | Procedures | [phone] | [phone] | | | | | MRI Foot | | | | | | | [...] Erika Ernst, | Sprain of | | 2019 | Encounter | Hospital [facility] [address] | DO [address] | calcaneofibular | | | | [address] | [place] [address] | ligament of left | | | | [place], [place] | [phone] | ankle, subsequent | | | | [address] | | encounter | | | | [phone] | | | +--------+ + + + [...] | 19 | 9 | | [facility]) | | | | | | | [...] | | | | | [place] [address] | | | | | | [phone] | | | | | | | | | | | | Julia Fisher, | | | | | | PT | | +--------+ + + + + | 02/18/ | Appointment | Rehabilitation | Erika Ernst, | | | 2019 | | | DO [address] | | | | | | [place] [address] | | | | | | [phone] | | | | | | | | | | | | Genesis Ayon OT | | +--------+ + + + + | 02/25/ | Office | Primary Care | Erika Ernst, | | | 2019 | Visit | | DO [address] [place] [address] | | | | | | [place] [address] | | | | | | [phone] | | | | | | | [...] | | | | | [place] [address] | | | | | | [phone] | | | | | | | | +--------+ + + + + | 02/27/ | Appointment | Radiology | Dhara, | | | 2019 | | | [address] | | | | | [address] [place], | | | | | | [place] [address] | | | | | | [phone] | | | | | | | | +--------+ + + + + | 03/04/ | Appointment | Rehabilitation | Genesis Ayon OT | | | 2019 | | | | | +--------+ + + + + | 03/09/ | Office | Orthopedic Surgery | Jeffrey Gandhi, | | | 2019 | Visit | | [address] | | | | | | [place] [address] | | | | | | [phone] | | | | | | | [...] [place] | | | | | | [address] | | | | | | [phone] | | | | | | | [...] | | | | | [place] [address] | | | | | | [phone] | | | | | | | | | | | | Azul Yeboah, | | | | | | [address] | | | | | | [place] | | | | | | [place] [address] | | | | | | [phone] | | | | | | | [...] | | | | | | [place] [address] | | | | | | [phone] | | | | | | | | +--------+ + + + + documented as of this encounter Visit Diagnoses + + | Diagnosis | + + | Sprain of calcaneofibular ligament of left ankle, subsequent encounter | + + documented in this encounter"
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
--- OUTSIDE RECORDS SUMMARY | ~2020-02-18 | XMS | Encounter Summary ---
Demographics + + + | Address | [address] | | | [place] [address] | + + + | Home Phone [...] Team Providers + +------+ + | Care General Operations Agent Name | Role | Phone | [...] Description | +--------+---------+ + + + | 05/09/ | Office | [place] [facility] | KleverKeitha Joie, | Acute bronchitis, | | 2018 | Visit | [facility] | DO [address] | unspecified organism | | | | [facility] | [facility] [place] [address] | (Primary Dx); | | | [address] [place], | [phone] | Asthma due to | | | | [place] [address] | | environmental | | | | [phone] | | allergies | +--------+---------+ + + [...] + + + | Blood Pressure | 144/80 | 05/09/2018 2:42 PM | | | | | PDT | | + + + + + | Pulse | 72 | 05/09/2018 2:42 PM | | | | | PDT | | + + + + + | Temperature | 36.7 C (98 F) | 05/09/2018 2:42 PM | | | | | PDT | | + + + + + | Respiratory Rate | 16 | 05/09/2018 2:42 PM | | | | | PDT | | + + + + + | Oxygen Saturation | 98% | 05/09/2018 2:42 PM | | | | | PDT | | + + + + + | Inhaled Oxygen | - | - | | | Concentration | | | | + + + + + | Weight | 166.5 kg (367 lb) | 05/09/2018 2:42 PM | | | | | PDT | | + + + + + | Height | 177.8 cm (5' 10") | 05/09/2018 2:42 PM | | | | | PDT | | + + + + + | Body Mass Index | 52.66 | 05/09/2018 2:42 PM | | | | | PDT | | + + + + + documented in this encounter Progress Notes Erika Ernst DO - 05/09/2018 2:30 PM PDTFormatting of this note might be different fro m the original. Subjective: Patient ID: Andrea Suh is a 28 y.o. female. Here with acute bronchitis. States started with a fever last noc 101.5 and increased cough and congestion. States cough is tight but no SOB or chest pain. Sinus congestion and ears f eel full. No ill contacts. She has environmentally triggered asthma and states the smoke is bothering her. We have also the last visit increased her Qvar inhaler dose. Review of Systems Constitutional: Positive for fever. HENT: Positive for congestion. Respiratory: Positive for cough. Negative for shortness of breath. Cardiovascular: Negative. Gastrointestinal: Negative. Genitourinary: Negative. Skin: Negative. Allergic/Immunologic: Positive for environmental allergies. Psychiatric/Behavioral: [...] with certain antibiotics Adhesive & Tape Rash Intolerance No active intolerances/contraindications Outpatient Encounter Prescriptions as of 05/09/2018 Medication Sig Dispense Refill amLODIPine (NORVASC) 5 mg tablet Take 1 tablet by mouth Daily. 30 tablet 11 azithromycin (ZITHROMAX) 500 MG tablet Take 500 mg daily x 7 days 7 tablet 0 beclomethasone (QVAR) 80 mcg/puff inhaler Inhale 1 puff into the lungs 2 times daily. 1 Inhaler 11 Cholecalciferol (VITAMIN D3) 92659 units TABS Take 1 tablet by mouth [...] day 10 then stop 41 tablet 0 VENTOLIN HFA 108 (90 Base) MCG/ACT inhaler INSTILL 2 PUFFS BY MOUTH EVERY 4 TO 6 HOURS NEEDED 18 g 11 No facility-administered encounter medications on file as of 05/09/2018. Objective: BP 144/80 | Pulse 72 | Temp 36.7 C (98 F) (Temporal) | Resp 16 | Ht 1.778 m (5' 10" ) | Wt (!) 166.5 kg (367 lb) | LMP (LMP Unknown) | SpO2 98% | ? No | BMI 52.66 kg/m Physical Exam Constitutional: She is oriented to person, place, and time. She appears well-developed and well-nourished. No distress. HENT: Head: Normocephalic and atraumatic. Mouth/Throat: Oropharynx is clear and moist. No oropharyngeal exudate. Bilateral TM's clear Eyes: Pupils are equal, round, and reactive to light. Conjunctivae and EOM are normal. Righ t eye exhibits no discharge. Left eye exhibits no discharge. No scleral icterus. Neck: Normal range of motion. Neck supple. Cardiovascular: Normal rate, regular rhythm and normal heart sounds. No murmur heard. Pulmonary/Chest: Effort normal. No respiratory distress. She has wheezes. She has no rales. Sl expiratory wheeze bilaterally in upper airways and sl rhonchi in the upper airways also. NAD Lymphadenopathy: She has no cervical adenopathy. Neurological: She is alert and oriented to person, place, and time. Skin: Skin is warm and dry. Psychiatric: She has a normal mood and affect. Her behavior is normal. Assessment: 1. Acute bronchitis, unspecified organism 2. Asthma due to environmental allergies Plan: Zithromax 500 mg daily x 7 days. Prednisone taper pkg. Rest, continue inhalers and take in extra fluids. documented in this en counter Plan of Treatment +--------+ + + + + | Date | Type | Specialty | Care Team | Description | +--------+ + + + + | 02/18/ | Appointment | Rehabilitation | Erika Ernst, | | | 2019 | | | DO [address] | | | | | | [place] [address] | | | | | | [phone] | | | | | | | | | | | | Julia Fisher, | | | | | | PT | | +--------+ + + + + | 02/18/ | Appointment | Rehabilitation | Erika Ernst, | | | 2019 | | | DO [address] | | | | | | [place] [address] | | | | | | [phone] | | | | | | | | | | | | Genesis Ayon OT | | +--------+ + + + + | 02/25/ | Office | Primary Care | Erika Ernst, | | | 2019 | Visit | | DO [address] | | | | | | [place] [address] | | | | | | [phone] | | | | | | | | +--------+ + + + + | 02/25/ | Appointment | Rehabilitation | Genseis Ayon OT | | | 2019 | | | | | +--------+ + + + + | 02/26/ | Virtual | Rehabilitation | Usha Rodriguez | | 2019 | Office | | MD Precious [address] | | | | Visit | | [address] [place] | | | | | | [place] [address] | | | | | | [phone] | | | | | | | | +--------+ + + + + | 02/27/ | Appointment | Radiology | Dhara, | | | 2019 | | | [address] | | | | | | [address] [facility], | | | | | | [place] [address] | | | | | | [phone] | | | | | | | | +--------+ + + + + | 03/04/ | Appointment | Rehabilitation | Genesis Ayon OT | | | 2019 | | | | | +--------+ + + + + | 03/09/ | Office | Orthopedic Surgery | Jeffrey Gandhi, | | | 2019 | Visit | | MD [address] [facility] | | | | | | [place] [address] | | | | | | [phone] | | | | | | | [...] [place] | | | | | | [address] | | | | | | [phone] | | | | | | | [...] | | | | | [place] [address] | | | | | | [phone] | | | | | | | | | | | | Azul Yeboah, | | | | | | MD [address] | | | | | | [place] | | | | | | [place] [address] | | | | | | [phone] | | | | | | | | +--------+ + + + + | 04/08/ | Appointment | Nutrition | Janel Webster | | | 2019 | | | [facility] [place] | | +--------+ + + + + | 08/20/ | Office | Neurology | Dhara, | | | 2019 | Visit | | [address] | | | | | | [address] [facility] [place], | | | | | | [place] [address] | | | | | | [phone] | | | | | | | | +--------+ + + + + documented as of this encounter Visit Diagnoses + + | Diagnosis | + + | Acute bronchitis, unspecified organism - Primary | + + | Asthma due to environmental allergies | + + documented in this encounter
--- OUTSIDE RECORDS SUMMARY | ~2020-02-18 | XMS | Encounter Summary ---
Demographics + + + | Address | [address] | | | [place] [address] | + + + | Home Phone [...] Team Providers + +------+ + | Care Fire Control Technician G Name | Role | Phone | + +------+ + | Erika Ernst DO | PCP | | + +------+ + Reason for Visit + + + | Reason | Comments | + + + | Head Injury Without | | | Loc | | + + + Encounter Details +--------+ + + + + | Date | Type | Department | Care Team | Description | +--------+ + + + + | 12/25/ | Emergency | [facility] | Tyrese Kee | Contusion of left | | 2019 | | [facility] | MD [address] | orbital tissues, | | | | C[address] | [address] | initial encounter | | | | DR [place], [place] | [place] [address] | (Primary Dx); Acute | | | | [address] | [phone] | nonintractable | | | | [phone] | | headache, | | | | | | unspecified headache | | | | | | type | +--------+ + + + + Social [...] + + + | Blood Pressure | 143/98 | 12/26/2019 8:52 AM | | | | | PDT | | + + + + + | Pulse | 81 | 12/26/2019 8:52 AM | | | | | PDT | | + + + + + | Temperature | 36.2 C (97.2 F) | 12/26/2019 8:52 AM | | | | | PDT | | + + + + + | Respiratory Rate | 18 | 12/26/2019 8:52 AM | | | | | PDT | | + + + + + | Oxygen Saturation | 99% | 12/26/2019 8:52 AM | RA | | | | PDT | | + + + + + | Inhaled Oxygen | - | - | | | Concentration | | | | + + + + + | Weight | 161 kg (355 lb) | 12/26/2019 8:52 AM | | | | | PDT | | + + + + + | Height | 177.8 cm (5' 10") | 12/26/2019 8:52 AM | | | | | PDT | | + + + + + | Body Mass Index | 50.94 | 12/26/2019 8:52 AM | | | | | PDT | | + + + + + documented in this encounter Discharge Instructions Instructions Tyrese Kee MD - 12/26/2019Return for altered level of consciousness confusion or repetitive vomitingfollow up with PCP if not significantly improved over the ne xt 5-7 days. documented in this encounter Medications at Time of Discharge + + + +---------+ + + | Medication | Sig | Dispensed | Refills | Start | End Date | | | | | | Date | | + + + +---------+ + + | albuterol 2.5 mg/3 | Inhale 1-2 | 120 | 0 | 03//20 | | | mL nebulizer | treatments [...] to 2 spray | | 1 | 11/22/ | | | nasal spray | into each nostril | | | 19 | | | | twice a day if | | | | | | | needed | | | | | + + + +---------+ + + | busPIRone (BUSPAR) | take 1 tablet by | 150 | 0 | 12/20/19 | | | 10 MG tablet | [...] puff INTO | 1 | 5 | 12/11/20 | | | 20-100 MCG/ACT | THE [...] mcg daily | 90 | 3 | 12/20/19 | | | (SYNTHROID) 50 mcg | [...] puffs into | 3 | 0 | //20 | | | MCG/ACT inhaler | the lungs 2 times | Inhaler | | 20 | | | | daily. | | | | | + + + +---------+ + + | SPIRIVA RESPIMAT | Inhale 2 puffs into | | 0 | // | | | 1.25 MCG/ACT inhaler | [...] + + + +---------+ + + | nitrofurantoin | Take 1 capsule by | 14 | 0 | 12/25/19 | | | (MACROBID) 100 mg | mouth 2 times daily | capsule | | 20 | 0 | | capsuleIndications: | for 7 days. | | | | | | Uncomplicated | Indications: Simple | | | | | | Urinary Tract | Infection of the | | | | | | Infection | Urinary Tract | | | | | + + + +---------+ + + | ondansetron | Take 1 tablet by | 10 | 0 | 12/26/19 | | | (ZOFRAN ODT) 4 mg [...] | | | | | [place] [address] | | | | | | [phone] | | | | | | | | | | | | Julia Fisher, | | | | | | PT | | +--------+ + + + + | 02/18/ | Appointment | Rehabilitation | Erika Ernst, | | | 2019 | | | DO [address] [place] | | | | | | [place] [address] | | | | | | [phone] | | | | | | | | | | | | Genesis Ayon OT | | +--------+ + + + + | 02/25/ | Office | Primary Care | Erika Ernst, | | | 2019 | Visit | | [address] [place] [address] | | | | | | [place] [address] | | | | | | [phone] | | | | | | | [...] | | | | | [place] [address] | | | | | | [phone] | | | | | | | | +--------+ + + + + | 02/27/ | Appointment | Radiology | Dhara, | | | 2019 | | | [address] | | | | | [address] [place], | | | | | | [place] [address] | | | | | | [phone] | | | | | | | | +--------+ + + + + | 03/04/ | Appointment | Rehabilitation | Genesis Ayon OT | | | 2019 | | | | | +--------+ + + + + | 03/09/ | Office | Orthopedic Surgery | Jeffrey Gandhi, | | | 2019 | Visit | | [address] | | | | | | [place] [address] | | | | | | [phone] | | | | | | | [...] [place] | | | | | | [address] | | | | | | [phone] | | | | | | | [...] | | | | | [place] [address] | | | | | | [phone] | | | | | | | | | | | | Azul Yeboah, | | | | | | [address] | | | | | | [place] | | | | | | [place] [address] | | | | | | [phone] | | | | | | | | +--------+ + + + + | 04/08/ | Appointment | Nutrition | Janel Webster | | | 2019 | | | [place] | | +--------+ + + + + | 05/21/ | Office | Neurology Tank Jules, | | | 2019 | Visit | | [address] | | | | | [address] [place], | | | | | | [place] [address] | | | | | | [phone] | | | | | | | | +--------+ + + + + + +------+--------+ + + | Name | Type | Priori | Associated Diagnoses | Date/Time | | | | ty | | | + +------+--------+ + + | ED INFORMATION | YARITZA | Routin | | 12/26/2019 8:47 AM | | EXCHANGE | | e | | PDT | + +------+--------+ + + documented as of this encounter Visit Diagnoses + + | Diagnosis | + + | Contusion of left orbital tissues, initial encounter - Primary | + + | Acute nonintractable headache, unspecified headache type | + + documented in this encounter
--- OUTSIDE RECORDS SUMMARY | ~2020-02-18 | XMS | Encounter Summary ---
Demographics + + + | Address | [address] | | | [place] [address] | + + + | Home Phone [...] Providers + +------+ + | Care Furnace Repairer Helper Name | Role | Phone | + +------+ + PCP | Unavailable | + +------+ + Encounter Details +--------+ + + + + | Date | Type | Department | Care Team | Description | +--------+ + + + + | 12/19/ | [facility] | [facility] | Erika Ernst, | | | 2016 | Encounter | [facility] | DO [address] | | | | | MEDICAL CLINIC [address] | [facility] [place] [address] | | | | | [address] [place], | [phone] | | | | | [place] [address] | | | | | | [phone] | | | +--------+ + + + [...] | | | | | [place] [address] | | | | | | [phone] | | | | | | | | | | | | Julia Fisher, | | | | | | PT | | +--------+ + + + + | 02/18/ | Appointment | Rehabilitation | Erika Ernst, | | | 2019 | | | DO [address] [place] | | | | | | [place] [address] | | | | | | [phone] | | | | | | | | | | | | Genesis Ayon, SUSAN | | +--------+ + + + + | 02/25/ | Office | Primary Care | Erika Ernst, | | | 2019 | Visit | | DO [address] [place] [address] | | | | | | [place] [address] | | | | | | [phone] | | | | | | | [...] | | | | | [place] [address] | | | | | | [phone] | | | | | | | | +--------+ + + + + | 02/27/ | Appointment | Radiology | Dhara, | | | 2019 | | | [address] | | | | | | [address] [place], | | | | | | [place] [address] | | | | | | [phone] | | | | | | | [...] [place] | | | | | | [place] [address] | | | | | | [phone] | | | | | | | [...] [place] | | | | | | [address] | | | | | | [phone] | | | | | | | [...] | | | | | [place] [address] | | | | | | [phone] | | | | | | | | | | | | Azul Yeboah, | | | | | | MD [address] | | | | | | [place] | | | | | | [place] [address] | | | | | | [phone] | | | | | | | [...] | | | | | | [place] [address] | | | | | | [phone] | | | | | | | | +--------+ + + + + documented as of this encounter Visit Diagnoses Not on filedocumented in this encounter"
--- OUTSIDE RECORDS SUMMARY | ~2020-02-18 | XMS | Encounter Summary ---
Demographics + + + | Address | [address] | | | [place] [address] | + + + | Home Phone [...] Team Providers + +------+ + | Care Camera Supervisor Name | Role | Phone | + +------+ + | Erika Ernst DO | PCP | | + +------+ + Reason for Visit +--------+ + | Reason | Comments | +--------+ + | Other | cast questions | +--------+ + Encounter Details +--------+ + + + + | Date | Type | Department | Care Team | Description | +--------+ + + + + | 04/08/ | Telephone | [facility] | Inocencio Noriega | Other (cast | | 2019 | | [facility] | MD [address] | questions) | | | | [address] | [address] | | | | | [place], [place] | [place] [address] | | | | | [address] | [phone] | | | | | [phone] | | | +--------+ + + + [...] | | | | | [place] [address] | | | | | | [phone] | | | | | | | | | | | | Julia Fisher, | | | | | | PT | | +--------+ + + + + | 02/18/ | Appointment | Rehabilitation | Erika Ernst, | | | 2019 | | | DO [address] [place] | | | | | | [place] [address] | | | | | | [phone] | | | | | | | | | | | | Genesis Ayon OT | | +--------+ + + + + | 02/25/ | Office | Primary Care | Erika Ernst, | | | 2019 | Visit | | DO [address] [place] | | | | | | [place] [address] | | | | | | [phone] | | | | | | | [...] | | | | | [place] [address] | | | | | | [phone] | | | | | | | | +--------+ + + + + | 02/27/ | Appointment | Radiology | Dhara, | | | 2019 | | | [address] | | | | | | 4TH [facility], | | | | | | [place] [address] | | | | | | [phone] | | | | | | | | +--------+ + + + + | 03/04/ | Appointment | Rehabilitation | Genesis Ayon OT | | | 2019 | | | | | +--------+ + + + + | 03/09/ | Office | Orthopedic Surgery | Jeffrey Gandhi, | | | 2019 | Visit | | [address] | | | | | | [place] [address] | | | | | | [phone] | | | | | | | [...] [place] | | | | | | [address] | | | | | | [phone] | | | | | | | [...] | | | | | [place] [address] | | | | | | [phone] | | | | | | | | | | | | Azul Yeboah, | | | | | | MD [address] | | | | | | [place] | | | | | | [place] [address] | | | | | | [phone] | | | | | | | [...] | | | | | | [place] [address] | | | | | | [phone] | | | | | | | | +--------+ + + + + documented as of this encounter Visit Diagnoses Not on filedocumented in this encounter"
--- OUTSIDE RECORDS SUMMARY | ~2020-02-18 | XMS | Encounter Summary ---
Demographics + + + | Address | [address] | | | [place] [address] | + + + | Home Phone [...] Team Providers + +------+ + | Care Derrick Boat Runner Name | Role | Phone | + +------+ + | Erika Ernst DO | PCP | | + +------+ + Encounter Details +--------+ + + + + | Date | Type | Department | Care Team | Description | +--------+ + + + + | 07/04/ | Abstract | [facility] | Erika Ernst, | | | 2017 | | [address] | | | | | MEDICAL CLINIC [address] | [place] [address] | | | | | [facility]TH [facility] [place], | [phone] | | | | | [place] [address] | | | | | | [phone] | | | +--------+ + + + [...] | | | | | [place] [address] | | | | | | [phone] | | | | | | | | | | | | Julia Fisher, | | | | | | PT | | +--------+ + + + + | 02/18/ | Appointment | Rehabilitation | Erika Ernst, | | | 2019 | | | DO [address] [place] | | | | | | [place] [address] | | | | | | [phone] | | | | | | | | | | | | Genesis Ayon, SUSAN | | +--------+ + + + + | 02/25/ | Office | Primary Care | Erika Ernst, | | | 2019 | Visit | | DO [address] [place] [address] | | | | | | [place] [address] | | | | | | [phone] | | | | | | | [...] | | | | | [place] [address] | | | | | | [phone] | | | | | | | | +--------+ + + + + | 02/27/ | Appointment | Radiology | Dhara, | | 2019 | | | [address] | | | | | | [address] [place], | | | | | | [place] [address] | | | | | | [phone] | | | | | | | | +--------+ + + + + | 03/04/ | Appointment | Rehabilitation | Genesis Ayon OT | | 2019 | | | | | +--------+ + + + + | 03/09/ | Office | Orthopedic Surgery | Jeffrey Gandhi, | | | 2019 | Visit | | [address] | | | | | | [place] [address] | | | | | | [phone] | | | | | | | [...] [place] | | | | | | [address] | | | | | | [phone] | | | | | | | [...] | | | | | [place] [address] | | | | | | [phone] | | | | | | | | | | | | Azul Yeboah, | | | | | | MD [address] | | | | | | [place] [address] [place] | | | | | | [place] [address] | | | | | | [phone] | | | | | | | [...] | | | | | | [place] [address] | | | | | | [phone] | | | | | | | | +--------+ + + + + documented as of this encounter Procedures + +--------+ + + + | Procedure Name | Priori | Date/Time | Associated Diagnosis | Comments | | | ty | | | | + +--------+ + + + | EXTERNAL LAB: PAP | Routin | 05/21/2013 | | Results for this | | SMEAR | e | | | procedure are in the | | | | | | results section. | + +--------+ + + + documented in this encounter Results External Lab: PAP Smear (05/21/2013) + + + + + + | Component | Value | Ref Range | Performed | Pathologist | | | | | At | Signature | + + + + + + | Pap Smear, | No evidence of | | | | | External | intraepithelial lesion | | | | | | or malignancy | | | | + + + + + + documented in this encounter Visit Diagnoses Not on filedocumented in this encounter"
--- OUTSIDE RECORDS SUMMARY | ~2020-02-18 | XMS | Encounter Summary ---
Demographics + + + | Address | [address] | | | [place] [address] | + + + | Home Phone [...] Team Providers + +------+ + | Care Vacuum Tester Cans Name | Role | Phone | + [...] | +--------+ + + + + | 08/13/ | Telephone | [facility] [facility] | Erika Ernst, | Referral Question | | 2018 | | [facility] | DO [address] | | | | | MEDICAL CLINIC [address] | [facility] [place] [address] | | | | | [address] [place], | [phone] | | | | | [place] [address] | | | | | | [phone] | | | +--------+ + + + [...] | | | | | [place] [address] | | | | | | [phone] | | | | | | | | | | | | Julia Fisher, | | | | | | PT | | +--------+ + + + + | 02/18/ | Appointment | Rehabilitation | Erika Ernst, | | | 2019 | | | DO [address] [place] | | | | | | [place] [address] | | | | | | [phone] | | | | | | | | | | | | Genesis Ayon OT | | +--------+ + + + + | 02/25/ | Office | Primary Care | Erika Ernst, | | | 2019 | Visit | | DO [address] [place] | | | | | | [place] [address] | | | | | | [phone] | | | | | | | [...] | | | | | [place] [address] | | | | | | [phone] | | | | | | | | +--------+ + + + + | 02/27/ | Appointment | Radiology | Dhara, | | | 2019 | | | [address] | | | | | | 4TH [facility], | | | | | | [place] [address] | | | | | | [phone] | | | | | | | [...] | | | | | [place] [address] | | | | | | [phone] | | | | | | | [...] | Office | Obstetrics and | Emily Aevry | | | 2019 | Visit | Gynecology | DO Jackelyn Garcia | | | | | | [address] | | | | | | [place] | | | | | | [address] | | | | | | [phone] | | | | | | | [...] | | | | | [place] [address] | | | | | | [phone] | | | | | | | | | | | | Azul Yeboah, | | | | | | MD [address] | | | | | | [place] [place] | | | | | | [place] [address] | | | | | | [phone] | | | | | | | [...] | | | | | | [place] [address] | | | | | | [phone] | | | | | | | | +--------+ + + + + documented as of this encounter Visit Diagnoses Not on filedocumented in this encounter"
--- OUTSIDE RECORDS SUMMARY | ~2020-02-18 | XMS | Encounter Summary ---
Demographics + + + | Address | [address] | | | [place] [address] | + + + | Home Phone [...] Team Providers + +------+ + | Care Junior Programmer Name | Role | Phone | [...] | +--------+ + + + + | 02/07/ | Telephone | [facility] [facility] | Luis Nichole MD | Other | | 2019 | | [facility] | [address] | | | | | CLIN[address] | [place], [place] | | | | | [address], | [address] | | | | | [place] [address] | | | | | | [phone] | | | +--------+ + + + [...] | | | | | [place] [address] | | | | | | [phone] | | | | | | | | | | | | Julia Fisher, | | | | | | PT | | +--------+ + + + + | 02/18/ | Appointment | Rehabilitation | Erika Ernst, | | | 2019 | | | DO [address] [place] | | | | | | [place] [address] | | | | | | [phone] | | | | | | | | | | | | Genesis Ayon OT | | +--------+ + + + + | 02/25/ | Office | Primary Care | Erika Ernst, | | | 2019 | Visit | | DO [address] [place] | | | | | | [place] [address] | | | | | | [phone] | | | | | | | [...] | | | | | [place] [address] | | | | | | [phone] | | | | | | | | +--------+ + + + + | 02/27/ | Appointment | Radiology | Dhara, | | | 2019 | | | [address] | | | | | | 4TH [facility], | | | | | | [place] [address] | | | | | | [phone] | | | | | | | [...] | | | | | [place] [address] | | | | | | [phone] | | | | | | | [...] [place] | | | | | | [address] | | | | | | [phone] | | | | | | | | +--------+ + + + + | 03/25/ | Appointment | Rehabilitation | Genesis Ayon OT | | | 2019 | | | | | +--------+ + + + + | 04/08/ | Office | Neurology | Erika rEnst, | | | 2019 | Visit | | DO [address] [place] | | | | | | [place] [address] | | | | | | [phone] | | | | | | | | | | | | Azul Yeboah, | | | | | | MD [address] | | | | | | [place] | | | | | | [place] [address] | | | | | | [phone] | | | | | | | [...] | | | | | | [place] [address] | | | | | | [phone] | | | | | | | | +--------+ + + + + documented as of this encounter Visit Diagnoses Not on filedocumented in this encounter"
--- OUTSIDE RECORDS SUMMARY | ~2020-02-18 | XMS | Encounter Summary ---
Demographics + + + | Address | [address] | | | [place] [address] | + + + | Home Phone [...] | Author | [facility] | | | and [place] | + + + | Organization | [facility] | | [...] Team Providers + +------+ + | Care Sql Developer Name | Role | Phone | + +------+ + | Erika Ernst DO | PCP | | + +------+ + Reason for Visit + + + | Reason | Comments | + + + | Paperwork | | + + + Encounter Details +--------+ + + + + | Date | Type | Department | Care Team | Description | +--------+ + + + + | 05/23/ | Telephone | [place] [facility] | Erika Ernst, | Paperwork | | 2018 | | [facility] | DO [address] | | | | | MEDICAL CLINIC [address] | [place] [address] | | | | | [address] [place], | [phone] | | | | | [place] [address] | | | | | | [phone] | | | +--------+ + + + [...] | | 2019 | | | DO [place] | | | | | | [place] [address] | | | | | | [phone] | | | | | | | | | | | | Julia Fisher, | | | | | | PT | | +--------+ + + + + | 02/18/ | Appointment | Rehabilitation | Erika Ernst, | | | 2019 | | | DO [address] [place] | | | | | | [place] [address] | | | | | | [phone] | | | | | | | | | | | | Genesis Ayon OT | | +--------+ + + + + | 02/25/ | Office | Primary Care | Erika Ernst, | | | 2019 | Visit | | DO [address] [place] | | | | | | [place] [address] | | | | | | [phone] | | | | | | | [...] | | | | | [place] [address] | | | | | | [phone] | | | | | | | | +--------+ + + + + | 02/27/ | Appointment | Radiology | Dhara, | | | 2019 | | | [address] | | | | | | 4TH [facility] [place], | | | | | | [place] [address] | | | | | | [phone] | | | | | | | [...] | | | | | [place] [address] | | | | | | [phone] | | | | | | | [...] [place] | | | | | | [address] | | | | | | [phone] | | | | | | | [...] | | | | | [place] [address] | | | | | | [phone] | | | | | | | | | | | | Azul Yeboah, | | | | | | MD [address] | | | | | | [place] | | | | | | [place] [address] | | | | | | [phone] | | | | | | | [...] | | | | | | [place] [address] | | | | | | [phone] | | | | | | | | +--------+ + + + + documented as of this encounter Visit Diagnoses Not on filedocumented in this encounter"
--- OUTSIDE RECORDS SUMMARY | ~2020-02-18 | XMS | Encounter Summary ---
Demographics + + + | Address | [address] | | | [place] [address] | + + + | Home Phone [...] Team Providers + +------+ + | Care Print Traffic Manager Name | Role | Phone | [...] | +--------+ + + + + | 04/11/ | Telephone | [place] [facility] | Inocencio Noriega | Follow-up | | 2019 | | [facility] | MD [address] | | | | | [address] | [address] | | | | | [place], [place] | [place] [address] | | | | | [address] | [phone] | | | | | [phone] | | | +--------+ + + + [...] | | | | | [place] [address] | | | | | | [phone] | | | | | | | | | | | | Julia Fisher, | | | | | | PT | | +--------+ + + + + | 02/18/ | Appointment | Rehabilitation | Erika Ernst, | | | 2019 | | | DO [address] [place] | | | | | | [place] [address] | | | | | | [phone] | | | | | | | | | | | | Genesis Ayon OT | | +--------+ + + + + | 02/25/ | Office | Primary Care | Erika Ernst, | | | 2019 | Visit | | DO [address] [place] | | | | | | [place] [address] | | | | | | [phone] | | | | | | | | +--------+ + + + + | 02/25/ | Appointment | Rehabilitation | Genesis Ayon OT | | | 2019 | | | | | +--------+ + + + + | 02/26/ | Virtual | Rehabilitation | Usha Rodirguez | | 2019 | Office | | MD Precious [address] | | | | Visit | | [address] [place] | | | | | | [place] [address] | | | | | | [phone] | | | | | | | | +--------+ + + + + | 02/27/ | Appointment | Radiology | Dhara, | | | 2019 | | | [address] | | | | | | 4TH [facility], | | | | | | [place] [address] | | | | | | [phone] | | | | | | | | +--------+ + + + + | 03/04/ | Appointment | Rehabilitation | Genesis Ayon OT | | | 2019 | | | | | +--------+ + + + + | 03/09/ | Office | Orthopedic Surgery | Jeffrey Gandhi, | | | 2019 | Visit | | [place] [address] [facility] | | | | | | [place] [address] | | | | | | [phone] | | | | | | | [...] [place] | | | | | | [address] | | | | | | [phone] | | | | | | | [...] | | | | | [place] [address] | | | | | | [phone] | | | | | | | | | | | | Azul Yeboah, | | | | | | MD [address] | | | | | | [place] | | | | | | [place] [address] | | | | | | [phone] | | | | | | | [...] | | | | | | [place] [address] | | | | | | [phone] | | | | | | | | +--------+ + + + + documented as of this encounter Visit Diagnoses Not on filedocumented in this encounter"
--- OUTSIDE RECORDS SUMMARY | ~2020-02-18 | XMS | Encounter Summary ---
Demographics + + + | Address | [address] | | | [place] [address] | + + + | Home Phone [...] Team Providers + +------+ + | Care Event Attendant Name | Role | Phone | + +------+ + | Erika Ernst DO | PCP | | + +------+ + Reason for Visit + + + | Reason | Comments | + + + | Imaging Only | CT HEAD from [facility] | + + + Encounter Details +--------+ + + + + | Date | Type | Department | Care Team | Description | +--------+ + + + + | 01/25/ | Telephone | [facility] | Luis Nichole MD | Imaging Only (CT | | 2019 | | [facility] [address] | [address] | HEAD from [facility] | | | | [address] | [facility] [place] | [facility]) | | | | [facility] [place] | [address] | | | | | [address] | | | | | | [phone] | | | +--------+ + + + [...] | | | | | [place] [address] | | | | | | [phone] | | | | | | | | | | | | Julia Fisher, | | | | | | PT | | +--------+ + + + + | 02/18/ | Appointment | Rehabilitation | Erika Ernst, | | | 2019 | | | DO [address] [place] | | | | | | [place] [address] | | | | | | [phone] | | | | | | | | | | | | [facility] | | +--------+ + + + + | 02/25/ | Office | Primary Care | Erika Ernst, | | | 2019 | Visit | | DO [address] [place] | | | | | | [place] [address] | | | | | | [phone] | | | | | | | [...] | | | | | [place] [address] | | | | | | [phone] | | | | | | | | +--------+ + + + + | 02/27/ | Appointment | Radiology | Dhara, | | | 2019 | | | DWAINE [address] | | | | | | [address] [facility], | | | | | | [place] [address] | | | | | | [phone] | | | | | | | [...] [place] | | | | | | [place] [address] | | | | | | [phone] | | | | | | | [...] [place] | | | | | | [address] | | | | | | [phone] | | | | | | | [...] | | | | | [place] [address] | | | | | | [phone] | | | | | | | | | | | | Azul Yeboah, | | | | | | MD [address] | | | | | | [place] | | | | | | [place] [address] | | | | | | [phone] | | | | | | | [...] | | | | | | [place] [address] | | | | | | [phone] | | | | | | | | +--------+ + + + + documented as of this encounter Visit Diagnoses Not on filedocumented in this encounter"
--- OUTSIDE RECORDS SUMMARY | ~2020-02-18 | XMS | Encounter Summary ---
Demographics + + + | Address | [address] | | | [place] [address] | + + + | Home Phone [...] Team Providers + +------+ + | Care Grapple Operator Name | Role | Phone | + +------+ + PCP | Unavailable | + +------+ + Encounter Details +--------+ + + + + | Date | Type | Department | Care Team | Description | +--------+ + + + + | 11/17/ | Hospital | [facility] | Conversion | | | 2016 | Encounter | [facility] | Transaction, | | | | | [address] [place] | Provider Unknown | | | | | [place] | | | | | | [address] | | | | | | [phone] | | | +--------+ + + + [...] | | | | | [place] [address] | | | | | | [phone] | | | | | | | | | | | | Julia Fisher, | | | | | | PT | | +--------+ + + + + | 02/18/ | Appointment | Rehabilitation | Erika Ernst, | | | 2019 | | | DO [address] | | | | | | [place] [address] | | | | | | [phone] | | | | | | | | | | | | Genesis [facility]yon OT | | +--------+ + + + + | 02/25/ | Office | Primary Care | Erika Ernst, | | | 2019 | Visit | | DO [address] | | | | | | [place] [address] | | | | | | [phone] | | | | | | | | +--------+ + + + + | 02/25/ | Appointment | Rehabilitation | Genesis Ayon OT | | | 2019 | | | | | +--------+ + + + + | 02/26/ | Virtual | Rehabilitation | Usha Rodriguez | | | 2019 | Office | | MD [address] | | | | Visit | | [address] [place] | | | | | | [place] [address] | | | | | | [phone] | | | | | | | | +--------+ + + + + | 02/27/ | Appointment | Radiology | Dhara, | | | 2019 | | | [address] | | | | | | 4TH [facility], | | | | | | [place] [address] | | | | | | [phone] | | | | | | | | +--------+ + + + + | 03/04/ | Appointment | Rehabilitation | Genesis Ayon OT | | | 2019 | | | | | +--------+ + + + + | 03/09/ | Office | Orthopedic Surgery | Jeffrey Gandhi, | | | 2019 | Visit | | [address] | | | | | | [place] [address] | | | | | | [phone] | | | | | | | [...] 2019 | Visit | Gynecology | DO Jackeyln Garcia | | | | | | [address] | | | | | | [place], [place] | | | | | | [address] | | | | | | [phone] | | | | | | | [...] | | | | | [place] [address] | | | | | | [phone] | | | | | | | | | | | | Azul Yeboah, | | | | | | MD [address] | | | | | | [place] | | | | | | [place] [address] | | | | | | [phone] | | | | | | | [...] | | | | | | [place] [address] | | | | | | [phone] | | | | | | | | +--------+ + + + + documented as of this encounter Visit Diagnoses Not on filedocumented in this encounter"
--- OUTSIDE RECORDS SUMMARY | ~2020-02-18 | XMS | Encounter Summary ---
Demographics + + + | Address | [address] | | | [place] [address] | + + + | Home Phone [...] Team Providers + +------+ + | Care Supervisor Assembly And Packing Name | Role | Phone | + [...] [place] | | | | | [address] | [address] | | | | | [phone] | [phone] | | | | | | | [...] | | | | | [place] [address] | | | | | | [phone] | | | | | | | | | | | | Julia Fisher, | | | | | | PT | | +--------+ + + + + | 02/18/ | Appointment | Rehabilitation | Erika Ernst, | | | 2019 | | | DO [address] | | | | | | [place] [address] | | | | | | [phone] | | | | | | | | | | | | Genesis Ayon, OT | | +--------+ + + + + | 02/25/ | Office | Primary Care | Erika Ernst, | | | 2019 | Visit | | DO [address] | | | | | | [place] [address] | | | | | | [phone] | | | | | | | [...] | | | | | [place] [address] | | | | | | [phone] | | | | | | | | +--------+ + + + + | 02/27/ | Appointment | Radiology | Dhara, | | | 2019 | | | [address] | | | | | | 4TH [facility], | | | | | | [place] [address] | | | | | | [phone] | | | | | | | | +--------+ + + + + | 03/04/ | Appointment | Rehabilitation | Genesis Ayon OT | | | 2019 | | | | | +--------+ + + + + | 03/09/ | Office | Orthopedic Surgery | Jeffrey Gandhi, | | | 2019 | Visit | | [address] | | | | | | [place] [address] | | | | | | [phone] | | | | | | | [...] [place] | | | | | | [address] | | | | | | [phone] | | | | | | | [...] | | | | | [place] [address] | | | | | | [phone] | | | | | | | | | | | | Azul Yeboah, | | | | | | MD [address] | | | | | | [place] | | | | | | [place] [address] | | | | | | [phone] | | | | | | | [...] | | | | | | [place] [address] | | | | | | [phone] | | | | | | | | +--------+ + + + + documented as of this encounter Visit Diagnoses Not on filedocumented in this encounter"
--- OUTSIDE RECORDS SUMMARY | ~2020-02-18 | XMS | Encounter Summary ---
Demographics + + + | Address | [address] | | | [place] [address] | + + + | Home Phone [...] Team Providers + +------+ + | Care Head Bone Grinder Name | Role | Phone | + +------+ + PCP | Unavailable | + +------+ + Encounter Details +--------+ + + + + | Date | Type | Department | Care Team | Description | +--------+ + + + + | 11/12/ | [facility] | Caro Zendejas | | | 2013 | Encounter | [facility] | Vale, COFOUNDER [address] | | | | | MEDICAL CL[facility] [address] | [facility], [place] | | | | | [address] [facility], | [address] | | | | | [place] [address] | [phone] | | | | | [phone] | | | +--------+ + + + [...] | | | | | [place] [address] | | | | | | [phone] | | | | | | | | | | | | Julia Fisher, | | | | | | PT | | +--------+ + + + + | 02/18/ | Appointment | Rehabilitation | Erika Ernst, | | | 2019 | | | DO [address] | | | | | | [place] [address] | | | | | | [phone] | | | | | | | | | | | | Genesis Ayon, OT | | +--------+ + + + + | 02/25/ | Office | Primary Care | Erika Ernst, | | | 2019 | Visit | | DO [address] | | | | | | [place] [address] | | | | | | [phone] | | | | | | | [...] | | | | | [place] [address] | | | | | | [phone] | | | | | | | | +--------+ + + + + | 02/27/ | Appointment | Radiology | Dhara, | | | 2019 | | | [address] | | | | | | [address] [facility], | | | | | | [place] [address] | | | | | | [phone] | | | | | | | | +--------+ + + + + | 03/04/ | Appointment | Rehabilitation | Genesis Ayon OT | | | 2019 | | | | | +--------+ + + + + | 03/09/ | Office | Orthopedic Surgery | Jeffrey Gandhi, | | | 2019 | Visit | | [address] | | | | | | [place] [address] | | | | | | [phone] | | | | | | | [...] [place] | | | | | | [address] | | | | | | [phone] | | | | | | | [...] | | | | | [place] [address] | | | | | | [phone] | | | | | | | | | | | | Azul Yeboah, | | | | | | MD [address] | | | | | | [place] | | | | | | [place] [address] | | | | | | [phone] | | | | | | | [...] | | | | | | [place] [address] | | | | | | [phone] | | | | | | | | +--------+ + + + + documented as of this encounter Visit Diagnoses Not on filedocumented in this encounter"
--- OUTSIDE RECORDS SUMMARY | ~2020-02-18 | XMS | Encounter Summary ---
Demographics + + + | Address | [address] | | | [place] [address] | + + + | Home Phone [...] Team Providers + +------+ + | Care Top Frame Fitter Name | Role | Phone | + [...] | +--------+ + + + + | 02/13/ | Telephone | [facility] | Erika Ernst, | Medication Question | | 2019 | | [facility] | DO [address] | | | | | MEDICAL CLIN[facility] [address] | [facility] [address] | | | | | [address] [facility], | [phone] | | | | | [place] [address] | | | | | | [phone] | | | +--------+ + + + [...] | 2019 | | | DO [address] [place] | | | | | | [place] [address] | | | | | | [phone] | | | | | | | | | | | | Julia Fisher, | | | | | | PT | | +--------+ + + + + | 02/18/ | Appointment | Rehabilitation | Erika Ernst, | | | 2019 | | | DO [address] | | | | | | [place] [address] | | | | | | [phone] | | | | | | | | | | | | Genesis Ayon OT | | +--------+ + + + + | 02/25/ | Office | Primary Care | Erika Ernst, | | | 2019 | Visit | | DO [address] | | | | | | [place] [address] | | | | | | [phone] | | | | | | | [...] | | | | | [place] [address] | | | | | | [phone] | | | | | | | | +--------+ + + + + | 02/27/ | Appointment | Radiology | Dhara, | | | 2019 | | | [address] | | | | | | 4TH [facility], | | | | | | [place] [address] | | | | | | [phone] | | | | | | | | +--------+ + + + + | 03/04/ | Appointment | Rehabilitation | Genesis Ayon OT | | | 2019 | | | | | +--------+ + + + + | 03/09/ | Office | Orthopedic Surgery | Jeffrey Gandhi, | | | 2019 | Visit | | [address] | | | | | | [place] [address] | | | | | | [phone] | | | | | | | [...] [place] | | | | | | [address] | | | | | | [phone] | | | | | | | [...] | | | | | [place] [address] | | | | | | [phone] | | | | | | | | | | | | Azul Yeboah, | | | | | | MD [address] | | | | | | [place] | | | | | | [place] [address] | | | | | | [phone] | | | | | | | [...] | | | | | | [place] [address] | | | | | | [phone] | | | | | | | | +--------+ + + + + documented as of this encounter Visit Diagnoses Not on filedocumented in this encounter"
--- OUTSIDE RECORDS SUMMARY | ~2020-02-18 | XMS | Encounter Summary ---
Demographics + + + | Address | [address] | | | [place] [address] | + + + | Home Phone | | + + + | Preferred Language | Unknown | + + + | Marital Status | Single | + + + | Denominational Affiliation | Unknown | + + + | Race | Unknown | + + + | Ethnic Group | Unknown | + + + Author + + + | Author | [facility] | | | and [place] | + + + | Organization | [facility] | | | and [...] Team Providers + +------+ + | Care Piano Player Name | Role | Phone | + [...] | MEDICAL CLINIC [address] | [place] [address] | (Primary Dx); | | | | [address] [place], | [phone] | Acquired | | | | [place] [address] | | hypothyroidism; Iron | | | | [phone] | | deficiency; PTSD | | | [...] | | | | | [place] [address] | | | | | | [phone] | | | | | | | | | | | | Julia Fisher, | | | | | | PT | | +--------+ + + + + | 02/18/ | Appointment | Rehabilitation | Erika Ernst, | | | 2019 | | | DO [address] | | | | | | [place] [address] | | | | | | [phone] | | | | | | | | | | | | Genesis Ayon, OT | | +--------+ + + + + | 02/25/ | Office | Primary Care | Erika Ernst, | | | 2019 | Visit | | DO [address] | | | | | | [place] [address] | | | | | | [phone] | | | | | | | [...] | | | | | | [place] [address] | | | | | | [phone] | | | | | | | | +--------+ + + + + | 02/27/ | Appointment | Radiology | Dhara, | | | 2019 | | | [address] | | | | | | [address] [place] [address], | | | | | | [place] [address] | | | | | | [phone] | | | | | | | | +--------+ + + + + | 03/04/ | Appointment | Rehabilitation | Genesis Ayon OT | | 2019 | | | | | +--------+ + + + + | 03/09/ | Office | Orthopedic Surgery | Jeffrey Gandhi, | | 2019 | Visit | | [address] | | | | | | [place] [address] | | | | | | [phone] | | | | | | | [...] [place] | | | | | | [address] | | | | | | [phone] | | | | | | | [...] | | | | | [place] [address] | | | | | | [phone] | | | | | | | | | | | | Azul Yeboah, | | | | | | MD [address] | | | | | | [place] | | | | | | [place] [address] | | | | | | [phone] | | | | | | | [...] | | | | | | [place] [address] | | | | | | [phone] | | | | | | | [...]
--- OUTSIDE RECORDS SUMMARY | ~2020-02-18 | XMS | Encounter Summary ---
Demographics + + + | Address | [address] | | | [place] [address] | + + + | Home Phone [...] [facility] | | [...] Team Providers + +------+ + | Care Professor Of Exercise Science Name | Role | Phone | + +------+ + | Erika Ernst DO | PCP | | + +------+ + Encounter Details +--------+ + + + + | Date | Type | Department | Care Team | Description | +--------+ + + + + | 06/05/ | Hospital | [place] [facility] | Denise Mcgregor | | | 2018 | Encounter | [facility] | | | | | [address] | | | | | | [place], [place] | | | | | | [address] | | | | | | [phone] | | | +--------+ + + + [...] +---------+ + + | azithromycin | Take 500 mg daily x | 7 | 0 | 05/09/20 | | | (ZITHROMAX) 500 MG | 7 days | tablet | | 18 | 8 [...] + + | busPIRone (BUSPAR) | Take 1 tablet by | 30 | 0 | 05/29/20 | | | 5 mg tablet | mouth 3 times daily. | tablet | | 18 | 8 | + + + +---------+ + + | Cholecalciferol | Take 1 tablet by | 16 | 0 | 03/19/20 | | | (VITAMIN D3) 06892 | mouth Once a week | tablet [...] + +---------+ + + | predniSONE | TAKE 6 TABS BY MOUTH | 41 | 0 | 05/16/20 | | | (DELTASONE) 10 mg | FOR 5 DAYS, THEN 4 | tablet | | 18 | 8 | | tablet | TABS FOR 1 DAY, THEN | | | | | | | 3 TABS FOR 1 DAY, | | | | | | | THEN 2 TABS FOR 1 | | | | | | | DAY, THEN 1 TAB FOR | | | | | | | 1 DAY, THEN 1/2 TAB | | | | | | | FOR | | | | | + + [...] | | 2020 | | | DO [address] [place] [address] | | | | | | [place] [address] | | | | | | [phone] | | | | | | | | | | | | Julia Fisher, | | | | | | PT | | +--------+ + + + + | 02/18/ | Appointment | Rehabilitation | Erika Ernst, | | | 2019 | | | DO [address] | | | | | | [place] [address] | | | | | | [phone] | | | | | | | | | | | | Genesis Ayon OT | | +--------+ + + + + | 02/25/ | Office | Primary Care | Erika Ernst, | | | 2019 | Visit | | DO [address] | | | | | | [place] [address] | | | | | | [phone] | | | | | | | [...] | | | | | [place] [address] | | | | | | [phone] | | | | | | | | +--------+ + + + + | 02/27/ | Appointment | Radiology | Dhara, | | | 2019 | | | [address] | | | | | | [address] [place], | | | | | | [place] [address] | | | | | | [phone] | | | | | | | [...] | | | | | [place] [address] | | | | | | [phone] | | | | | | | [...] [place] | | | | | | [address] | | | | | | [phone] | | | | | | | [...] | | | | | [place] [address] | | | | | | [phone] | | | | | | | | | | | | Azul Yeboah, | | | | | | MD [address] | | | | | | [place] | | | | | | [place] [address] | | | | | | [phone] | | | | | | | [...] | | | | | | [place] [address] | | | | | | [phone] | | | | | | | | +--------+ + + + + documented as of this encounter Visit Diagnoses Not on filedocumented in this encounter"
--- OUTSIDE RECORDS SUMMARY | ~2020-02-18 | XMS | Encounter Summary ---
Demographics + + + | Address | [address] | | | [place] [address] | + + + | Home Phone [...] Team Providers + +------+ + | Care Scientific Research Associate Name | Role | Phone | [...] | Specialty | Obstetrics | Diagnoses | [facility] | | | Services | and | Painful | Erika A, DO | Obg[address] | | | Required | Gynecology | menstrual | [address] | [address] | | | | | periods | [place], | [place] | | | | | Spotting | [place] [address] | [place], [place] | | | | | between | Phone: | [phone] | | | | | menses | [phone] | Phone: | | | | | | Fax: | [phone] | | | | | | [phone] | Fax: | | | | | | | [phone] | +--------+ + + + + + Reason for Visit + + + | Reason | Comments | + + + | Follow-up | Blood pressure | + + + Encounter Details +--------+---------+ + + + | Date | Type | Department | Care Team | Description | +--------+---------+ + + + | 12/13/ | Office | [place] [facility] | Erika Ernst, | Essential | | 2019 | Visit | [facility] | DO [address] | hypertension | | | | MEDICAL CLINIC [address] | [place] [address] | (Primary Dx); Heart | | | | [address] [place], | [phone] | palpitations; | | | | [place] [address] | | Anxiety; Painful | | | | [phone] | | menstrual periods; | | | | | | Spotting between | | | | | | menses; Natalia | | | | | | vaginitis; | | | | | | Depression, | | | | | | unspecified | | | | | | depression type | +--------+---------+ + + + Social History [...] + + + | Blood Pressure | 146/88 | 12/13/2018 2:52 PM | | | | | PDT | | + + + + + | Pulse | 85 | 12/13/2018 2:52 PM | | | | | PDT | | + + + + + | Temperature | - | - | | + + + + + | Respiratory Rate | 17 | 12/13/2018 2:52 PM | | | | | PDT | | + + + + + | Oxygen Saturation | 99% | 12/13/2018 2:52 PM | | | | | PDT | | + + + + + | Inhaled Oxygen | - | - | | | Concentration | | | | + + + + + | Weight | 171 kg (377 lb) | 12/13/2018 2:52 PM | | | | | PDT | | + + + + + | Height | 177.8 cm (5' 10") | 12/13/2018 2:52 PM | | | | | PDT | | + + + + + | Body Mass Index | 54.09 | 12/13/2018 2:52 PM | | | | | PDT | | + + + + + documented in this encounter Progress Notes Erika Ernst DO - 12/13/2018 3:00 PM PDTFormatting of this note might be different fro m the original. Subjective: Patient ID: Andrea Suh is a 28 y.o. female. Here to Fu on HTN. She was to go off her beta irma so she could get allergy shots. She h as gone off all her HTN meds and has kept record at home. She is sl high on the systolic tod ay but at home BP has been good. She would like to try to stay off the BP meds. She has been having 3 episodes over the last 2 weeks that she has been off meds episodes of heart palpit ations. This may be some with drawl of the beta irma but she states has had arrhythmia be fore but does not know what kind. No SOB or chest pain but states felt dizzy with the episo ele. She would like a second opinion referral to [facility] for her menstrual issues, painful with mid cycle break through. She has been seeing [facility] in [facility] and she wants to put in a IUD and pt does not agree with this plan. Will do referral to our [facility] Women's clinic. She just finis hed antibiotics for sinus infection and has a vaginal yeast infection with itch from this. H as had diflucan for this issue before with relief. She has had increased anxiety since off t he beta irma and would like to increase her buspar and we can do that today. She continue s FU with [facility] for mental health. Non-smoker, no ETOH or drugs Review of Systems As above Objective: BP 146/88 | Pulse 85 | Resp 17 | Ht 1.778 m (5' 10") | Wt (!) 171 kg (377 lb) | LMP ( LMP Unknown) | SpO2 99% | BMI 54.09 kg/m Physical Exam Constitutional: She is oriented to person, place, and time. She appears well-developed and well-nourished. No distress. Eyes: Conjunctivae and EOM are normal. Right [...] is normal. Judgment and thought content normal. EKG NSR rate 77 borderline conduction delay, nothing acute Assessment: 1. Essential hypertension 2. Heart palpitations Holter monitor - 48 hour 3. Anxiety 4. Painful menstrual periods * [place] [facility] Ref[facility] 5. Spotting between menses * [place] [facility]-REND[facility] - AMB Referral 6. Naatlia vaginitis Plan: She will continue to monitor HTN and HR at home. 48 hour Holter monitor ordered. Increase B uspar to 30 mg BID . Referral to [facility] Women's clinic Diflucan daily x 3 days for yeast infect ion. FU in about 3 weeks documented in this en counter Plan of Treatment +--------+ + + + + | Date | Type | Specialty | Care Team | Description | +--------+ + + + + | 02/18/ | Appointment | Rehabilitation | Erika Ernst, | | | 2019 | | | DO [address] | | | | | | [place] [address] | | | | | | [phone] | | | | | | | | | | | | Julia Fisher, | | | | | | PT | | +--------+ + + + + | 02/18/ | Appointment | Rehabilitation | Erika Ernst, | | | 2019 | | | DO [address] | | | | | | [place] [address] | | | | | | [phone] | | | | | | | | | | | | Genesis Ayon OT | | +--------+ + + + + | 02/25/ | Office | Primary Care | Erika Ernst, | | | 2019 | Visit | | DO [address] | | | | | | [place] [address] | | | | | | [phone] | | | | | | | [...] | | | | | [place] [address] | | | | | | [phone] | | | | | | | | +--------+ + + + + | 02/27/ | Appointment | Radiology | Dhara, | | | 2019 | | | [address] | | | | | | [address] [place], | | | | | | [place] [address] | | | | | | [phone] | | | | | | | | +--------+ + + + + | 03/04/ | Appointment | Rehabilitation | Genesis Ayon OT | | | 2019 | | | | | +--------+ + + + + | 03/09/ | Office | Orthopedic Surgery | Jeffrey Gandhi, | | | 2019 | Visit | | [place] [address] | | | | | | [place] [address] | | | | | | [phone] | | | | | | | [...] [place] | | | | | | [address] | | | | | | [phone] | | | | | | | [...] | | | | | [place] [address] | | | | | | [phone] | | | | | | | | | | | | Azul Yeboah, | | | | | | MD [address] | | | | | | [place] | | | | | | [place] [address] | | | | | | [phone] | | | | | | | [...] | | | | | | [place] [address] | | | | | | [phone] | | | | | | | | +--------+ + + + + + + +--------+ + + | Name | Type | Priori | Associated Diagnoses | Order Schedule | | | | ty | | | + + +--------+ + + | * [place] [facility] | Outpatient | Routin | Painful menstrual | Ordered: 12/13/2018 | | [facility] OB-RENDERER - AMB | Referral | e | periods Spotting | | | Referral | | | between menses | | + + +--------+ + + documented as of this encounter Procedures + +--------+ + + + | Procedure Name | Priori | Date/Time | Associated Diagnosis | Comments | | | ty | | | | + +--------+ + + + | ECG - EXTERNAL SCAN | | 12/17/2018 | | Results for this | | | | 12:00 AM | | procedure are in the | | | | PDT | | results section. | + +--------+ + + + documented in this encounter Results Holter monitor - 48 hour (01/02/2019 9:14 AM PDT) + + + | Narrative | Performed At | + + + | | | + + + + +---------+ + + | Performing | Address | City/State/Zipcode | Phone Number | | Organization | | | | + +---------+ + + | [facility] | | | | + +---------+ + + ECG - EXTERNAL SCAN (12/17/2018 12:00 AM PDT) + + + | Narrative | Performed At | + + + | Ordered by an | | | unspecified provider. | | + + + documented in this encounter Visit Diagnoses + + | Diagnosis | + + | Essential hypertension - Primary Unspecified essential hypertension | + + | Heart palpitations Palpitations | + + | Anxiety Anxiety state, unspecified | + + | Painful menstrual periods Dysmenorrhea | + + | Spotting between menses Metrorrhagia | + + | Natalia vaginitis Candidiasis of vulva and vagina | + + | Depression, unspecified depression type | + + documented in this encounter
--- OUTSIDE RECORDS SUMMARY | ~2020-02-18 | XMS | Encounter Summary ---
Demographics + + + | Address | [address] | | | [place] [address] | + + + | Home Phone [...] + + + | Author | [facility] | | | and [place] | + + + | Organization | [facility] | | | [...] Team Providers + +------+ + | Care Snow Blower Name | Role | Phone | + [...] Description | +--------+--------+ + + + | 09/11/ | Refill | [place] [facility] | Erika Ernst, | Medication Refill | | 2019 | | [facility] | DO [address] | | | | | MEDICAL CLIN[facility] [address] | [place] [address] | | | | | [address] [place], | [phone] | | | | | [place] [address] | | | | | | [phone] | | | +--------+--------+ + + + [...] | | | | | [place] [address] | | | | | | [phone] | | | | | | | | | | | | Julia Fisher, | | | | | | PT | | +--------+ + + + + | 02/18/ | Appointment | Rehabilitation | Erika Ernst, | | | 2019 | | | DO [address] | | | | | | [place] [address] | | | | | | [phone] | | | | | | | | | | | | [facility] OT | | +--------+ + + + + | 02/25/ | Office | Primary Care | Erika Ernst, | | | 2019 | Visit | | DO [address] | | | | | | [place] [address] | | | | | | [phone] | | | | | | | [...] | | | | | | [place] [address] | | | | | | [phone] | | | | | | | | +--------+ + + + + | 02/27/ | Appointment | Radiology | Dhara, | | | 2019 | | | [address] | | | | | | [address], | | | | | | [place] [address] | | | | | | [phone] | | | | | | | [...] [place] | | | | | | [place] [address] | | | | | | [phone] | | | | | | | [...] [place] | | | | | | [address] | | | | | | [phone] | | | | | | | [...] | | | | | [place] [address] | | | | | | [phone] | | | | | | | | | | | | Azul Yeboah, | | | | | | MD [address] | | | | | | [address] [place] | | | | | | [place] [address] | | | | | | [phone] | | | | | | | [...] | | | | | | [place] [address] | | | | | | [phone] | | | | | | | | +--------+ + + + + documented as of this encounter Visit Diagnoses Not on filedocumented in this encounter"
--- OUTSIDE RECORDS SUMMARY | ~2020-02-18 | XMS | Encounter Summary ---
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 States increas ed stress with her Mom having a [...] Capacity 3. Asthma due to environmental allergies moderate intermittent 4. Dysuria Urinalysis with Microscopic with Culture [...] | | | | | [place] [address] | | | | | | [phone] | | | | | | | | | | | | Julia Fisher, | | | | | | PT | | +--------+ + + + + | 02/18/ | Appointment | Rehabilitation | Erika Ernst, | 2019 | | | DO [address] | | | | | | [place] [address] | | | | | | [phone] | | | | | | | | | | | | Genesis Ayon OT | | +--------+ + + + + | 02/25/ | Office | Primary Care | Erika Ernst, | | | 2019 | Visit | | DO [address] [place] [address] | | | | | | [place] [address] | | | | | | [phone] | | | | | | | [...] | | | | | [place] [address] | | | | | | [phone] | | | | | | | | +--------+ + + + + | 02/27/ | Appointment | Radiology | Dhara, | | | 2019 | | | [address] | | | | | | [address] [place], | | | | | | [place] [address] | | | | | | [phone] | | | | | | | | +--------+ + + + + | 03/04/ | Appointment | Rehabilitation | Genesis Ayon OT | | | 2019 | | | | | +--------+ + + + + | 03/09/ | Office | Orthopedic Surgery | Jeffrey Gandhi, | | | 2019 | Visit | | [address] | | | | | | [place] [address] | | | | | | [phone] | | | | | | | | +--------+ + + + + | 03/11/ | Appointment | Rehabilitation | Genseis Ayon [...] [place] | | | | | | [address] | | | | | | [phone] | | | | | | | | +--------+ + + + + | 03/25/ | Appointment | Rehabilitation | Genesis Ayon OT | | | 2019 | | | | | +--------+ + + + + | 04/08/ | Office | Neurology | Klever, Erika A, | | | 2019 | Visit | | DO [address] | | | | | | [place] [address] | | | | | | [phone] | | | | | | | | | | | | Azul Yeboah, | | | | | | MD [address] | | | | | | [place] | | | | | | [place] [address] | | | | | | [phone] | | | | | | | [...] | | | | | | [place] [address] | | | | | | [phone] | | | | | | | [...] + + Iron and Iron Binding Capacity (10/14/2019 2:08 PM PST) + +-------+ + + + | Component | Value | Ref Range | Performed | Pathologist | | | | | At | Signature | + +-------+ + + + | Iron | 102 | 50 - 170 ug/dL | [place] [facility] | | | | [facility] | | + +-------+ + + + | TIBC | 324 | 250 - 450 ug/dL | [place] [facility] | | | | | [facility] | | + +-------+ + + + | Iron | 31 | 15 - 50 % | [place] [...] + + | [place] [facility] | [address] | [place] | [phone] | | [facility] | | [address] | | + + + + + Ferritin (10/14/2019 2:08 PM PST) + +-------+ + + + | Component | Value | Ref Range | Performed | Pathologist | | | | | At | Signature | + +-------+ + + + | Ferritin | 32.3 | 6.2 - 137.0 | [place] | [...] + + | [place] [facility] | [address] | [place] | [phone] | | [facility] | | [address] | | + + + + + CBC with Differential (10/14/2019 2:08 PM PST) + + + + + + | Component | Value | Ref Range | Performed | Pathologist | | | | | At | Signature | + + + + + + | WBC | 9.9 | 4.3 - 10.4 K/uL | [place] | | | | | | [facility] | | [facility] | [facility] | | | | | [facility] | | + + + + + + | RBC | 4.32 | 4.12 - 5.30 | [place] | | | | | M/uL | [facility] | [facility] | | [facility] | | | | | | [facility] | | + + + + + + | Hemoglobin | 12.0 (L) | 12.4 - 15.7 | [place] | | | | | g/dL | [facility] | | [facility] | | | | [facility] | | | | | | [facility] | | + + + + + + | Hematocrit | 36.8 (L) | 37.7 - 47.0 % | [place] | | | | | [facility] | | [facility] | [facility] | | | [facility] | | + + + + + + | MCV | 85.2 | 82.0 - 97.0 fL | [place] | | | | | [facility] | [facility] | [facility] | | | | | [facility] | | + + + + + + | MCH | 27.8 | 27.1 - 32.3 pg | [place] | | | | | | [facility] | [facility] | | | [facility] | | | | [facility] | | + + + + + + | MCHC | 32.6 | 32.0 - 36.9 | [place] | | | | | g/dL | [facility] | [facility] | [facility] | | | | | [facility] | | + + + + + + | RDW-CV | 15.5 | 0.0 - 17.0 % | [place] | | | | | | [facility] | | | | [facility] | | | | | [facility] | | | | | | [facility] | | + + + + + + | Platelet | 356 | 150 - 450 K/uL | [place] | | | Count | | | [facility] | | | | [facility] | | | [facility] | | | | | [facility] | | + + + + + + | MPV | 8.5 (L) | 9.4 - 12.3 fL | [place] | | | | | | [facility] | | | [facility] | | | | [facility] | | | | | | [facility] | | + + + + + + | % | 59.0 | 42.0 - 76.0 % | [place] | | | Neutrophils | | | [facility] | | [facility] | [facility] | | | | | [facility] | | | | | | [facility] | | + + + + + + | % | 33.6 | 20.0 - 40.0 % | [place] | | | Lymphocytes | | | [facility] | | [facility] | [facility] | | | | | [facility] | | | | | | [facility] | | + + + + + + | % Monocytes | 6.3 | 3.0 - 13.0 % | [place] | | | | | | [facility] | | | | | | [facility] | | | | | [facility] | | | | | | [facility] | | + + + + + + | % | 0.8 | 0.0 - 7.0 % | [place] | | | Eosinophils | | | [facility] | | | | | | [facility] | | | | | | [facility] | | | | | | [facility] | | + + + + + + | % Basophils | 0.3 | 0.0 - 2.0 % | [place] | | | | | | [facility] | | | | | | [facility] | | | | | | [facility] | | | | | | [facility] | | + + + + + + | Absolute | 5.80 | 2.50 - 8.50 | [place] | | | Neutrophils | | K/uL | [facility] | | | | [facility] | | | | | [facility] | | | | | | [facility] | | + + + + + + | Absolute | 3.30 | 1.00 - 3.80 | [place] | | | Lymphocytes | | K/uL | [facility] | | [facility] | [facility] | | | | | [facility] | | | | | | [facility] | | + + + + + + | Absolute | 0.60 | 0.00 - 0.80 | [place] | | | Monocytes | | K/uL | [facility] | | [facility] | [facility] | | | | | [facility] | | | | | | [facility] | | + + + + + + | Absolute | 0.10 | 0.00 - 0.70 | [place] | | | Eosinophils | | K/uL | [facility] | | | | | [facility] | | | | | | [facility] | | | | | | [facility] | | + + + + + + | Absolute | 0.00 [...] + + | [place] [facility] | [address] | [place] | [phone] | | [facility] | | [address] | | | [facility] | | | | + + + + + US Abdomen Limited (09/26/2019 8:39 AM PST) [...] + | Yoni Grullon Results In - 09/26/2019 8:58 AM PST [...] - 1.030 | [place] | | | [place], | | | [facility] | | | [...] + + + | Red Blood | None Seen | <=5 /HPF | [...] | | | Urine | | | LABORATORY | | + + + + + + | Bacteria, | Few (A) | None Seen /HPF | [place] | | | Urine | | | [facility] | | | | | | LAB[facility]ATORY | | + + + + + + | Mucus, | Moderate (A) | None seen /LPF | [place] | | | Urine | | | [facility] | [facility] | | | | | | LAB[facility]ATORY | | + + + + + + | Hyaline | Many (A) | None Seen /LPF | [place] | | | Casts, | | | [facility] | | | [...] + + | [place] [facility] | [address] | [place] | [phone] | | HOSPITAL [facility] | | [address] | | + + + + + [...] | mL/min/1.73m2 | [facility] | | | [place] | RATE,ESTIMATED | | [facility]OSPITAL | | | | mL/min/1.65o3Gqlo than | | LABORATORY | | | [...] 35 | 14 - 59 U/L | [facility] | | | | | | [facility] [...] + + | [place] [facility] | [address] | [place] | [phone] | | HOSPITAL [facility] | | [address] | | + + + + + [...] + + + + + | [facility] [facility] | [address] | [place] | [phone] | | HOS[facility]ITAL [facility] | | [address] | | + + + + + [...] | | | | | | - LOPEZ | | | | | | STEEN | | + + + + + + | Hepatitis A | NONREACTIVEComment: | | REFERENCE | | | Ab IgM | :REFERENCE RANGE: | | [facility] | | | | NONREACTIVE For | | DIAGNOSTICS | | | | additional information, | | - JESSICA | | | | please refer | | STEEN | | | | [email or web address].quest | | | | | | diagnostics.[employer]/faq/FAQ2 | | | | | | 02(This [...] | | | | | | code 59175) is | | | | | | [...] seehttps://education.que | | | | | | [employer]/faq/FA | | | | | | Q22v1 Test(s) performed | | | | | | at: [facility] | | | | | | INFECTIOUS DISEASE | | | | | | [place], | | | | | | [place], [facility]ician | | | | | | [address] [facility] | | | | | | [facility] | | | | | | [place] [address] | | | | | | CLIA #[id number] | | | | + + + + + + + + | Specimen | + + | Blood | + + + + + + + | Performing | Address | City/State/Zipcode | Phone Number | | Organization | | | | + + + + + | REFERENCE LAB | [address] [facility] | [place], [place] | | | [facility] - | | [address] | | | JESS[place] STEEN | | [...]
--- OUTSIDE RECORDS SUMMARY | ~2020-02-18 | XMS | Encounter Summary ---
Demographics + + + | Address | [address] | | | [place] [address] | + + + | Home Phone [...] Providers + +------+ + | Care Contact Lens Cutter Name | Role | Phone | + +------+ + | Erika Ernst DO | PCP | | + +------+ + Reason for Visit + + + | Reason | Comments | + + + | Request For Medical | | | Records | | + + + Encounter Details +--------+ + + + + | Date | Type | Department | Care Team | Description | +--------+ + + + + | 02/16/ | Telephone | [place] [facility] | Erika Ernst, | Request For Medical | | 2019 | | [facility] | DO [address] | Records | | | | [facility] | [place] [place] [address] | | | | | [address] [place], | [phone] | | | | | [place] [address] | | | | | | [phone] | | | +--------+ + + + [...] | | | | | [place] [address] | | | | | | [phone] | | | | | | | | | | | | Julia Fisher, | | | | | | PT | | +--------+ + + + + | 02/18/ | Appointment | Rehabilitation | Erika Ernst, | | | 2019 | | | DO [address] | | | | | | [place] [address] | | | | | | [phone] | | | | | | | | | | | | Genesis Ayon, OT | | +--------+ + + + + | 02/25/ | Office | Primary Care | Erika Ernst, | | | 2019 | Visit | | DO [address] | | | | | | [place] [address] | | | | | | [phone] | | | | | | | [...] | | | | | [place] [address] | | | | | | [phone] | | | | | | | | +--------+ + + + + | 02/27/ | Appointment | Radiology | Dhara, | | | 2019 | | | [address] | | | | | | 4TH [facility], | | | | | | [place] [address] | | | | | | [phone] | | | | | | | | +--------+ + + + + | 03/04/ | Appointment | Rehabilitation | Genesis Ayon OT | | | 2019 | | | | | +--------+ + + + + | 03/09/ | Office | Orthopedic Surgery | Jeffrey Gandhi, | | | 2019 | Visit | | [address] | | | | | | [place] [address] | | | | | | [phone] | | | | | | | [...] [place] | | | | | | [address] | | | | | | [phone] | | | | | | | [...] | | | | | [place] [address] | | | | | | [phone] | | | | | | | | | | | | Azul Yeboah, | | | | | | MD [address] | | | | | | [place] | | | | | | [place] [address] | | | | | | [phone] | | | | | | | [...] | | | | | | [place] [address] | | | | | | [phone] | | | | | | | | +--------+ + + + + documented as of this encounter Visit Diagnoses Not on filedocumented in this encounter"
--- OUTSIDE RECORDS SUMMARY | ~2020-02-18 | XMS | Encounter Summary ---
Demographics + + + | Address | [address] | | | [place] [address] | + + + | Home Phone [...] Team Providers + +------+ + | Care Apartment Leasing Specialist Name | Role | Phone | + +------+ + PCP | Unavailable | + +------+ + Encounter Details +--------+ + + + + | Date | Type | Department | Care Team | Description | +--------+ + + + + | 04/19/ | Hospital | [place] [facility] | Tyrese Kee | | | 2015 | Encounter | [facility] | MD Peter [address] | | | | | CENTER [address] | [address] | | | | | [place], [place] | [place] [address] | | | | | [address] | [phone] | | | | | [phone] | | | +--------+ + + + [...] | | | | | [place] [address] | | | | | | [phone] | | | | | | | | | | | | Juila Fisher, | | | | | | PT | | +--------+ + + + + | 02/18/ | Appointment | Rehabilitation | Erika Ernst, | | | 2019 | | | DO [address] [place] | | | | | | [place] [address] | | | | | | [phone] | | | | | | | | | | | | Genesis Ayon OT | | +--------+ + + + + | 02/25/ | Office | Primary Care | Erika Ernst, | | | 2019 | Visit | | DO [address] [place] | | | | | | [place] [address] | | | | | | [phone] | | | | | | | [...] | | | | | | [place] [address] | | | | | | [phone] | | | | | | | | +--------+ + + + + | 02/27/ | Appointment | Radiology | Dhara, | | | 2019 | | | [address] | | | | | | 4TH [facility], | | | | | | [place] [address] | | | | | | [phone] | | | | | | | [...] [place] | | | | | | [place] [address] | | | | | | [phone] | | | | | | | [...] [place] | | | | | | [address] | | | | | | [phone] | | | | | | | [...] | | | | | [place] [address] | | | | | | [phone] | | | | | | | | | | | | Azul Yeboah, | | | | | | MD [address] | | | | | | [place] | | | | | | [place] [address] | | | | | | [phone] | | | | | | | [...] | | | | | | [place] [address] | | | | | | [phone] | | | | | | | | +--------+ + + + + documented as of this encounter Visit Diagnoses Not on filedocumented in this encounter"
--- OUTSIDE RECORDS SUMMARY | ~2020-02-18 | XMS | Encounter Summary ---
Demographics + + + | Address | [address] | | | [place] [address] | + + + | Home Phone [...] Team Providers + +------+ + | Care Heel Brusher Name | Role | Phone | + [...] Refill | | 2019 | | [facility] | DO [address] | | | | | [facility]ICAL [facility] [address] | [place] [address] | | | | | [address] [place], | [phone] | | | | | [place] [address] | | | | | | [phone] | | | +--------+--------+ + + + [...] | | | | | [place] [address] | | | | | | [phone] | | | | | | | | | | | | Julia Fisher, | | | | | | PT | | +--------+ + + + + | 02/18/ | Appointment | Rehabilitation | Erika Ernst, | | | 2019 | | | DO [address] | | | | | | [place] [address] | | | | | | [phone] | | | | | | | | | | | | Genesis Ayon OT | | +--------+ + + + + | 02/25/ | Office | Primary Care | Erika Ernst, | | | 2019 | Visit | | DO [address] | | | | | | [place] [address] | | | | | | [phone] | | | | | | | [...] | | | | | [place] [address] | | | | | | [phone] | | | | | | | | +--------+ + + + + | 02/27/ | Appointment | Radiology | Dhara, | | | 2019 | | | [address] | | | | | | 4TH [facility], | | | | | | [place] [address] | | | | | | [phone] | | | | | | | [...] [place] | | | | | | [place] [address] | | | | | | [phone] | | | | | | | [...] [place] | | | | | | [address] | | | | | | [phone] | | | | | | | [...] | | | | | [place] [address] | | | | | | [phone] | | | | | | | | | | | | Azul Yeboah, | | | | | | MD [address] | | | | | | [place] | | | | | | [place] [address] | | | | | | [phone] | | | | | | | [...] | | | | | | [place] [address] | | | | | | [phone] | | | | | | | | +--------+ + + + + documented as of this encounter Visit Diagnoses Not on filedocumented in this encounter"
--- OUTSIDE RECORDS SUMMARY | ~2020-02-18 | XMS | Encounter Summary ---
Demographics + + + | Address | [address] | | | [place] [address] | + + + | Home Phone | | + + + | Preferred Language | Unknown | + + + | Marital Status | Single | + + + | Confucianist Affiliation | Unknown | + + + [...] + +------+ + | Care Ophthalmic Medical Technologist Name | Role | Phone | + [...] + | 01/16/ | Telephone | [facility] [facility] | Erika Ernst, | Asthma | | 2019 | | [facility] | DO [address] | | | | | MEDICAL CLIN[facility] [address] | [place] [address] | | | | | [address] [place], | [phone] | | | | | [place] [address] | | | | | | [phone] | | | +--------+ + + + [...] | | | | | [place] [address] | | | | | | [phone] | | | | | | | | | | | | Julia Fisher, | | | | | | PT | | +--------+ + + + + | 02/18/ | Appointment | Rehabilitation | Erika Ernst, | | | 2019 | | | DO [address] [place] | | | | | | [place] [address] | | | | | | [phone] | | | | | | | | | | | | Genesis Ayon OT | | +--------+ + + + + | 02/25/ | Office | Primary Care | Erika Ernst, | | | 2019 | Visit | | DO [address] | | | | | | [place] [address] | | | | | | [phone] | | | | | | | [...] | | | | | [place] [address] | | | | | | [phone] | | | | | | | | +--------+ + + + + | 02/27/ | Appointment | Radiology | Dhara, | | | 2019 | | | [address] | | | | | | [address] [place], | | | | | | [place] [address] | | | | | | [phone] | | | | | | | [...] | | | | | [place] [address] | | | | | | [phone] | | | | | | | [...] [place] | | | | | | [address] | | | | | | [phone] | | | | | | | [...] | | | | | [place] [address] | | | | | | [phone] | | | | | | | | | | | | Azul Yeboah, | | | | | | MD [address] | | | | | | [place] | | | | | | [place] [address] | | | | | | [phone] | | | | | | | [...] | | | | | | [place] [address] | | | | | | [phone] | | | | | | | | +--------+ + + + + documented as of this encounter Visit Diagnoses Not on filedocumented in this encounter"
--- OUTSIDE RECORDS SUMMARY | ~2020-02-18 | XMS | Encounter Summary ---
Demographics + + + | Address | [address] | | | [place] [address] | + + + | Home Phone [...] Team Providers + +------+ + | Care Pay Per Click Strategist Name | Role | Phone | + [...] | | | [address] | [facility] [place] | | | | | [place], [place] | [address] | | | | | [address] | [phone] | | | | | [phone] | | | +--------+ + + + [...] | | | | | [place] [address] | | | | | | [phone] | | | | | | | | | | | | Julia Fisher, | | | | | | PT | | +--------+ + + + + | 02/18/ | Appointment | Rehabilitation | Erika Ernst, | | | 2019 | | | DO [address] [place] | | | | | | [place] [address] | | | | | | [phone] | | | | | | | | | | | | Genesis Ayon, OT | | +--------+ + + + + | 02/25/ | Office | Primary Care | Erika Ernst, | | | 2019 | Visit | | DO [address] [place] | | | | | | [place] [address] | | | | | | [phone] | | | | | | | [...] | | | | | | [place] [address] | | | | | | [phone] | | | | | | | | +--------+ + + + + | 02/27/ | Appointment | Radiology | Dhara, | | | 2019 | | | [address] | | | | | | 4TH [facility], | | | | | | [place] [address] | | | | | | [phone] | | | | | | | | +--------+ + + + + | 03/04/ | Appointment | Rehabilitation | Genesis Ayon OT | | | 2019 | | | | | +--------+ + + + + | 03/09/ | Office | Orthopedic Surgery | Jeffrey Gandhi, | | 2019 | Visit | | [address] | | | | | | [place] [address] | | | | | | [phone] | | | | | | | [...] [place] | | | | | | [address] | | | | | | [phone] | | | | | | | [...] | | | | | [place] [address] | | | | | | [phone] | | | | | | | | | | | | Azul Yeboah, | | | | | | MD [address] | | | | | | [place] | | | | | | [place] [address] | | | | | | [phone] | | | | | | | [...] | | | | | | [place] [address] | | | | | | [phone] | | | | | | | | +--------+ + + + + documented as of this encounter Visit Diagnoses Not on filedocumented in this encounter"
--- OUTSIDE RECORDS SUMMARY | ~2020-02-18 | XMS | Encounter Summary ---
Demographics + + + | Address | [address] | | | [place] [address] | + + + | Home Phone [...] Team Providers + +------+ + | Care Grocery Team Member Name | Role | Phone | + +------+ + | Erika Ernst DO | PCP | | + +------+ + Reason for Visit + + + | Reason | Comments | + + + | Medication Prior | Metoprolol Succinate ER 100 mg | | Authorization | | + + + Encounter Details +--------+ + + + + | Date | Type | Department | Care Team | Description | +--------+ + + + + | 09/13/ | Telephone | [facility] | Erika Ernst, | Medication Prior | | 2018 | | [facility] | [address] [place] | Authorization | | | | MEDICAL [facility] [address] | [facility] [place] [address] | (Metoprolol | | | | [address] [place], | [phone] | Succinate ER 100 mg | | | | [place] [address] | | ) | | | | [phone] | | | +--------+ + + + [...] | | | | | [place] [address] | | | | | | [phone] | | | | | | | | | | | | Julia Fisher, | | | | | | PT | | +--------+ + + + + | 02/18/ | Appointment | Rehabilitation | Erika Ernst, | | | 2019 | | | DO [address] [place] | | | | | | [place] [address] | | | | | | [phone] | | | | | | | | | | | | Genesis Ayon, OT | | +--------+ + + + + | 02/25/ | Office | Primary Care | Erika Ernst, | | | 2019 | Visit | | DO [address] | | | | | | [place] [address] | | | | | | [phone] | | | | | | | [...] | | | | | [place] [address] | | | | | | [phone] | | | | | | | | +--------+ + + + + | 02/27/ | Appointment | Radiology | Dhara, | | | 2019 | | | DWAINE [address] | | | | | | [address] [facility], | | | | | | [place] [address] | | | | | | [phone] | | | | | | | | +--------+ + + + + | 03/04/ | Appointment | Rehabilitation | Genesis Ayon OT | | | 2019 | | | | | +--------+ + + + + | 03/09/ | Office | Orthopedic Surgery | Jeffrey Gandhi, | | | 2019 | Visit | | [address] | | | | | | [place] [address] | | | | | | [phone] | | | | | | | [...] [place] | | | | | | [address] | | | | | | [phone] | | | | | | | [...] | | | | | [place] [address] | | | | | | [phone] | | | | | | | | | | | | Azul Yeboah, | | | | | | MD [address] | | | | | | [place] [place] | | | | | | [place] [address] | | | | | | [phone] | | | | | | | [...] | | | | | | [place] [address] | | | | | | [phone] | | | | | | | | +--------+ + + + + documented as of this encounter Visit Diagnoses Not on filedocumented in this encounter"
--- OUTSIDE RECORDS SUMMARY | ~2020-02-18 | XMS | Encounter Summary ---
Demographics + + + | Address | [address] | | | [place] [address] | + + + | Home Phone [...] Team Providers + +------+ + | Care Dissolver Operator Name | Role | Phone | + +------+ + | Erika Ernst DO | PCP | | + +------+ + Reason for Visit +--------+ + | Reason | Comments | +--------+ + | Other | return to work status | +--------+ + Encounter Details +--------+ + + + + | Date | Type | Department | Care Team | Description | +--------+ + + + + | 05/10/ | Telephone | [place] [facility] | Inocencio Noriega | Other (return to | | 2018 | | [facility] | MD [address] | work status) | | | | [address] | [address] | | | | | [place] | [place] [address] | | | | | [address] | [phone] | | | | | [phone] | | | +--------+ + + + [...] | | | | | [place] [address] | | | | | | [phone] | | | | | | | | | | | | Julia Fisher, | | | | | | PT | | +--------+ + + + + | 02/18/ | Appointment | Rehabilitation | Erika Ernst, | | | 2019 | | | DO [address] | | | | | | [place] [address] | | | | | | [phone] | | | | | | | | | | | | [facility] Ayon OT | | +--------+ + + + + | 02/25/ | Office | Primary Care | Erika Ernst, | | | 2019 | Visit | | DO [address] | | | | | | [place] [address] | | | | | | [phone] | | | | | | | [...] | | | | | [place] [address] | | | | | | [phone] | | | | | | | | +--------+ + + + + | 02/27/ | Appointment | Radiology | Dhara, | | | 2019 | | | [address] | | | | | | 4TH [facility], | | | | | | [place] [address] | | | | | | [phone] | | | | | | | | +--------+ + + + + | 03/04/ | Appointment | Rehabilitation | Genesis Ayon OT | | | 2019 | | | | | +--------+ + + + + | 03/09/ | Office | Orthopedic Surgery | Jeffrey Gandhi, | | 2019 | Visit | | [address] | | | | | | [place] [address] | | | | | | [phone] | | | | | | | [...] [place] | | | | | | [address] | | | | | | [phone] | | | | | | | [...] | | | | | [place] [address] | | | | | | [phone] | | | | | | | | | | | | Azul Yeboah, | | | | | | MD [address] | | | | | | [place] | | | | | | [place] [address] | | | | | | [phone] | | | | | | | [...] | | | | | | [place] [address] | | | | | | [phone] | | | | | | | | +--------+ + + + + documented as of this encounter Visit Diagnoses Not on filedocumented in this encounter"
--- OUTSIDE RECORDS SUMMARY | ~2020-02-18 | XMS | Encounter Summary ---
Demographics + + + | Address | [address] | | | [place] [address] | + + + | Home Phone [...] Team Providers + +------+ + | Care Sorter Laundry Articles Name | Role | Phone | + [...] Cough | | 2019 | | [facility] | DO [address] | | | | | [facility] [address] | [place] [address] | | | | | [address] [place], | [phone] | | | | | [place] [address] | | | | | | [phone] | | | +--------+ + + + [...] | | | | | [place] [address] | | | | | | [phone] | | | | | | | | | | | | Julia Fisher, | | | | | | PT | | +--------+ + + + + | 02/18/ | Appointment | Rehabilitation | Erika Ernst, | | | 2019 | | | DO [address] | | | | | | [place] [address] | | | | | | [phone] | | | | | | | | | | | | Genesis Ayon OT | | +--------+ + + + + | 02/25/ | Office | Primary Care | Erika Ernst, | | | 2019 | Visit | | DO [address] | | | | | | [place] [address] | | | | | | [phone] | | | | | | | [...] | | | | | [place] [address] | | | | | | [phone] | | | | | | | | +--------+ + + + + | 02/27/ | Appointment | Radiology | Dhara, | | | 2019 | | | [address] | | | | | | [facility] | | | | | | [place] [address] | | | | | | [phone] | | | | | | | [...] [place] | | | | | | [place] [address] | | | | | | [phone] | | | | | | | [...] [place] | | | | | | [address] | | | | | | [phone] | | | | | | | [...] | | | | | [place] [address] | | | | | | [phone] | | | | | | | | | | | | Azul Yeboah, | | | | | | MD [address] | | | | | | [place] | | | | | | [place] [address] | | | | | | [phone] | | | | | | | [...] | | | | | | [place] [address] | | | | | | [phone] | | | | | | | | +--------+ + + + + documented as of this encounter Visit Diagnoses Not on filedocumented in this encounter"
--- OUTSIDE RECORDS SUMMARY | ~2020-02-18 | XMS | Encounter Summary ---
Demographics + + + | Address | [address] | | | [place] [address] | + + + | Home Phone [...] + + + | Author | [facility] | | | and [place] | + + + | Organization | [facility] | | [...] Providers + +------+ + | Care Child Welfare Assistant Name | Role | Phone | [...] | +--------+ + + + + | 01/01/ | Telephone | [place] [facility] | Harvey, | Results | | 2020 | | [facility] | [place], [address] | | | | | MEDICAL CLIN[facility] [address] | [address] | | | | | [address] [place], | [place] [address] | | | | | [place] [address] | [phone] | | | | | [phone] | | | +--------+ + + + [...] | | | | | [place] [address] | | | | | | [phone] | | | | | | | | | | | | Julia Fisher, | | | | | | PT | | +--------+ + + + + | 02/18/ | Appointment | Rehabilitation | Erika Ernst, | | | 2019 | | | DO [address] | | | | | | [place] [address] | | | | | | [phone] | | | | | | | | | | | | Genesis Aoyn OT | | +--------+ + + + + | 02/25/ | Office | Primary Care | Erika Ernst, | | | 2019 | Visit | | DO [address] | | | | | | [place] [address] | | | | | | [phone] | | | | | | | [...] | | Visit | | [address] [place] | | | | | | [place] [address] | | | | | | [phone] | | | | | | | | +--------+ + + + + | 02/27/ | Appointment | Radiology | Dhara, | | 2019 | | | [address] | | | | | | [facility]TH [facility], | | | | | | [place] [address] | | | | | | [phone] | | | | | | | | +--------+ + + + + | 03/04/ | Appointment | Rehabilitation | Genesis Ayon OT | | | 2019 | | | | | +--------+ + + + + | 03/09/ | Office | Orthopedic Surgery | Jeffrey Gandhi, | | | 2019 | Visit | | [address] | | | | | | [place] [address] | | | | | | [phone] | | | | | | | [...] [place] | | | | | | [address] | | | | | | [phone] | | | | | | | [...] | | | | | [place] [address] | | | | | | [phone] | | | | | | | | | | | | Azul Yeboah, | | | | | | [address] | | | | | | [place] | | | | | | [place] [address] | | | | | | [phone] | | | | | | | [...] | | | | | | [address] [place], | | | | | | [place] [address] | | | | | | [phone] | | | | | | | | +--------+ + + + + documented as of this encounter Visit Diagnoses Not on filedocumented in this encounter"
--- OUTSIDE RECORDS SUMMARY | ~2020-02-18 | XMS | Encounter Summary ---
Demographics + + + | Address | [address] | | | [place] [address] | + + + | Home Phone [...] Team Providers + +------+ + | Care Hematology Oncology Consultant Name | Role | Phone | [...] | | | to excess | [place] [address] | | | | | | calories | Phone: | | | | | | without | [phone] | | | | | | serious | Fax: | | | | | | comorbidity | [phone] | | | | | | with [...] | | | | | | | [place] [facility] | | | | | | [...] NUTRITION | DO [address] | ([facility]); Body mass | | | | SERVICES [address] | [place] [address] | index 50.0-59.9, | | | | DR [place], [place] | [phone] | adult ([facility]); | | | | [address] | | Essential | | | | [phone] | Janel Webster, | hypertension, | | [...] Food recall: D: chicken tofu, carrots Drinks: [employer] energy. Sleep: not sleeping due to stress/anxiety [...] | | | | | [place] [address] | | | | | | [phone] | | | | | | | | | | | | Julia Fisher, | | | | | | PT | | +--------+ + + + + | 02/18/ | Appointment | Rehabilitation | Erika Ernst, | | 2019 | | | DO [address] | | | | | | [place] [address] | | | | | | [phone] | | | | | | | | | | | | Genesis Ayon, SSUAN | | +--------+ + + + + | 02/25/ | Office | Primary Care | Erika Ernst, | | | 2019 | Visit | | DO [address] [place] [address] | | | | | | [place] [address] | | | | | | [phone] | | | | | | | [...] | | | | | [place] [address] | | | | | | [phone] | | | | | | | | +--------+ + + + + | 02/27/ | Appointment | Radiology | Dhara, | | 2019 | | | [address] | | | | | | [address] [place], | | | | | | [place] [address] | | | | | | [phone] | | | | | | | | +--------+ + + + + | 03/04/ | Appointment | Rehabilitation | Genesis Ayon OT | | | 2019 | | | | | +--------+ + + + + | 03/09/ | Office | Orthopedic Surgery | Jeffrey Gandhi, | | | 2019 | Visit | | [address] | | | | | | [place] [address] | | | | | | [phone] | | | | | | | [...] [place] | | | | | | [address] | | | | | | [phone] | | | | | | | [...] | | | | | [place] [address] | | | | | | [phone] | | | | | | | | | | | | Azul Yeboah, | | | | | | MD [address] | | | | | | [place] | | | | | | [place] [address] | | | | | | [phone] | | | | | | | [...] | | | | | | [place] [address] | | | | | | [phone] | | | | | | | [...]
--- OUTSIDE RECORDS SUMMARY | ~2020-02-18 | XMS | Encounter Summary ---
Demographics + + + | Address | [address] | | | [place] [address] | + + + | Home Phone [...] Team Providers + +------+ + | Care Dock Boss Name | Role | Phone | + [...] | | | [place], [place] | [address] | | | | | [address] | [phone] | | | | | [phone] | | | +--------+ + + + [...] | | | | | [place] [address] | | | | | | [phone] | | | | | | | | | | | | Julia Fisher, | | | | | | PT | | +--------+ + + + + | 02/18/ | Appointment | Rehabilitation | Erika Ernst, | | | 2019 | | | DO [address] | | | | | | [place] [address] | | | | | | [phone] | | | | | | | | | | | | Genesis Ayon, OT | | +--------+ + + + + | 02/25/ | Office | Primary Care | Erika Ernst, | | | 2019 | Visit | | DO [address] | | | | | | [place] [address] | | | | | | [phone] | | | | | | | [...] | | | | | [place] [address] | | | | | | [phone] | | | | | | | | +--------+ + + + + | 02/27/ | Appointment | Radiology | Dhara, | | | 2019 | | | [address] | | | | | | 4TH [facility], | | | | | | [place] [address] | | | | | | [phone] | | | | | | | | +--------+ + + + + | 03/04/ | Appointment | Rehabilitation | Genesis Ayon OT | | | 2019 | | | | | +--------+ + + + + | 03/09/ | Office | Orthopedic Surgery | Jeffrey Gandhi, | | | 2019 | Visit | | [address] | | | | | | [place] [address] | | | | | | [phone] | | | | | | | [...] 03/19/ | Office | Obstetrics and | Emiyl Avery | | 2019 | Visit | Gynecology | DO Jackelyn Garcia | | | | | | [address] | | | | | | [place] | | | | | | [address] | | | | | | [phone] | | | | | | | [...] | | | | | [place] [address] | | | | | | [phone] | | | | | | | | | | | | Azul Yeboah, | | | | | | MD [address] | | | | | | [place] | | | | | | [place] [address] | | | | | | [phone] | | | | | | | [...] | | | | | | [place] [address] | | | | | | [phone] | | | | | | | | +--------+ + + + + documented as of this encounter Visit Diagnoses Not on filedocumented in this encounter"
--- OUTSIDE RECORDS SUMMARY | ~2020-02-18 | XMS | Encounter Summary ---
Demographics + + + | Address | [address] | | | [place] [address] | + + + | Home Phone [...] Providers + +------+ + | Care Food Writer Name | Role | Phone | [...] Medication Refill | | 2019 | | [facility] | | | | | | [facility] [address] | | | | | | 4TH [facility] [place], | | | | | | [place] [address] | | | | | | [phone] | | | +--------+--------+ + + + [...] | | | | | [place], [place] [address] | | | | | | [phone] | | | | | | | | | | | | Julia Fisher, | | | | | | PT | | +--------+ + + + + | 02/18/ | Appointment | Rehabilitation | Erika Ernst, | | | 2019 | | | DO [address] | | | | | | [place] [address] | | | | | | [phone] | | | | | | | | | | | | Genesis Ayon OT | | +--------+ + + + + | 02/25/ | Office | Primary Care | Erika Ernst, | | | 2019 | Visit | | DO [address] | | | | | | [place] [address] | | | | | | [phone] | | | | | | | [...] | | | | | [place] [address] | | | | | | [phone] | | | | | | | | +--------+ + + + + | 02/27/ | Appointment | Radiology | Dhara, | | | 2019 | | | [address] | | | | | | 4TH [facility], | | | | | | [place] [address] | | | | | | [phone] | | | | | | | | +--------+ + + + + | 03/04/ | Appointment | Rehabilitation | Genesis Ayon OT | | | 2019 | | | | | +--------+ + + + + | 03/09/ | Office | Orthopedic Surgery | Jeffrey Gandhi, | | | 2019 | Visit | | MD [address] [facility] | | | | | | [place] [address] | | | | | | [phone] | | | | | | | [...] [place] | | | | | | [address] | | | | | | [phone] | | | | | | | [...] | | | | | [place] [address] | | | | | | [phone] | | | | | | | | | | | | Azul Yeboah, | | | | | | MD [address] | | | | | | [place] | | | | | | [place] [address] | | | | | | [phone] | | | | | | | [...] | | | | | | [place] [address] | | | | | | [phone] | | | | | | | | +--------+ + + + + documented as of this encounter Visit Diagnoses Not on filedocumented in this encounter"
--- OUTSIDE RECORDS SUMMARY | ~2020-02-18 | XMS | Encounter Summary ---
Demographics + + + | Address | [address] | | | [place] [address] | + + + | Home Phone [...] Team Providers + +------+ + | Care Dishwashing Machine Operator Name | Role | Phone [...] | +--------+ + + + + | 08/09/ | Telephone | [place] [facility] | Erika Ernst, | Referral | | 2019 | | [facility] | DO [address] | | | | | MEDICAL CLIN[facility] [address] | [place] [address] | | | | | [address] [place], | [phone] | | | | | [place] [address] | | | | | | [phone] | | | +--------+ + + + [...] | | | | | [place] [address] | | | | | | [phone] | | | | | | | | | | | | Julia Fisher, | | | | | | PT | | +--------+ + + + + | 02/18/ | Appointment | Rehabilitation | Erika Ernst, | | | 2019 | | | DO [address] | | | | | | [place] [address] | | | | | | [phone] | | | | | | | | | | | | Genesis Ayon OT | | +--------+ + + + + | 02/25/ | Office | Primary Care | Erika Ernst, | | | 2019 | Visit | | DO [address] | | | | | | [place] [address] | | | | | | [phone] | | | | | | | [...] | | | | | | [place] [address] | | | | | | [phone] | | | | | | | | +--------+ + + + + | 02/27/ | Appointment | Radiology | Dhara, | | | 2019 | | | [address] | | | | | | 4TH [facility], | | | | | | [place] [address] | | | | | | [phone] | | | | | | | | +--------+ + + + + | 03/04/ | Appointment | Rehabilitation | Genesis Ayon OT | | | 2019 | | | | | +--------+ + + + + | 03/09/ | Office | Orthopedic Surgery | Jeffrey Gandhi, | | | 2019 | Visit | | [address] | | | | | | [place] [address] | | | | | | [phone] | | | | | | | [...] [place] | | | | | | [address] | | | | | | [phone] | | | | | | | [...] | | | | | [place] [address] | | | | | | [phone] | | | | | | | | | | | | Azul Yeboah, | | | | | | [address] | | | | | | [place] | | | | | | [place] [address] | | | | | | [phone] | | | | | | | [...] | | | | | | [place] [address] | | | | | | [phone] | | | | | | | | +--------+ + + + + documented as of this encounter Visit Diagnoses Not on filedocumented in this encounter"
--- OUTSIDE RECORDS SUMMARY | ~2020-02-18 | XMS | Encounter Summary ---
Demographics + + + | Address | [address] | | | [place] [address] | + + + | Home Phone [...] Team Providers + +------+ + | Care Direct Care Professional Name | Role | Phone | + +------+ + | Erika Ernst DO | PCP | | + +------+ + Reason for Visit +--------+ + | Reason | Comments | +--------+ + | Fever | | +--------+ + Encounter Details +--------+ + + + + | Date | Type | Department | Care Team | Description | +--------+ + + + + | 12/19/ | Telephone | [place] [facility] | Keith Ernstleslie [place], | Fever | | 2020 | | [facility] | DO [address] | | | | | MEDICAL CLINIC [address] | [place] [address] | | | | | [address] [place], | [phone] | | | | | [place] [address] | | | | | | [phone] | | | +--------+ + + + [...] | | | | | [place] [address] | | | | | | [phone] | | | | | | | | | | | | Julia Fisher, | | | | | | PT | | +--------+ + + + + | 02/18/ | Appointment | Rehabilitation | Erika Ernst, | | | 2019 | | | DO [address] | | | | | | [place] [address] | | | | | | [phone] | | | | | | | | | | | | Genesis Ayon OT | | +--------+ + + + + | 02/25/ | Office | Primary Care | Erika Ernst, | | | 2019 | Visit | | DO [address] | | | | | | [place] [address] | | | | | | [phone] | | | | | | | [...] | | | | | [place] [address] | | | | | | [phone] | | | | | | | | +--------+ + + + + | 02/27/ | Appointment | Radiology | Dhara, | | | 2019 | | | [address] | | | | | | [facility] | | | | | | [place] [address] | | | | | | [phone] | | | | | | | [...] [place] | | | | | | [place] [address] | | | | | | [phone] | | | | | | | [...] [place] | | | | | | [address] | | | | | | [phone] | | | | | | | [...] | | | | | [place] [address] | | | | | | [phone] | | | | | | | | | | | | Azul Yeboah, | | | | | | MD [address] | | | | | | [place] | | | | | | [place] [address] | | | | | | [phone] | | | | | | | [...] | | | | | | [place] [address] | | | | | | [phone] | | | | | | | | +--------+ + + + + documented as of this encounter Visit Diagnoses Not on filedocumented in this encounter"
--- OUTSIDE RECORDS SUMMARY | ~2020-02-18 | XMS | Encounter Summary ---
Demographics + + + | Address | [address] | | | [place] [address] | + + + | Home Phone [...] Team Providers + +------+ + | Care Grout Worker Name | Role | Phone | [...] + | 07/17/ | Office | [facility] | Emily Avery | Dysmenorrhea | | 2019 | Visit | [facility] | Radha, DO [address] | (Primary Dx) | | | | [facility] [address] | [address] | | | | | [address]RA [place], | [facility], [place] | | | | | [place] [address] | [address] | | | | | [phone] | [phone] | | | | | | | [...] + + + | Blood Pressure | 140/94 | 07/17/2019 3:55 PM | | | | | PDT | | + + + + + | Pulse | 93 | 07/17/2019 3:55 PM | | | | | PDT | | + + + + + | Temperature | - | - | | + + + + + | Respiratory Rate | 18 | 07/17/2019 3:55 PM | | | | | PDT | | + + + + + | Oxygen Saturation | - | - | | + + + + + | Inhaled Oxygen | - | - | | | Concentration | | | | + + + + + | Weight | 174.6 kg (385 lb) | 07/17/2019 3:55 PM | | | | | PDT | | + + + + + | Height | 177.8 cm (5' 10") | 07/17/2019 3:55 PM | | | | | PDT | | + + + + + | Body Mass Index | 55.24 | 07/17/2019 3:55 PM | | | | | PDT | | + + + + + documented in this encounter Progress Notes Emily Avery, DO - 07/17/2019 4:00 PM PDTFormatting of this note might be diffe rent from the original. Andrea Suh is a 29 y.o. premenopausal female here for an US follow up. Ninfa ent had a pelvis US on 06/10/19 for dysmenorrhea which was relatively normal. We discussed pos sible options as patient continues to have pain. Patient would like to have evidence of a pr oblem before treatment. Discussed this would involve surgery. We could also try IUD to help with pain and be used as a control. Patient has a concern with breast cancer risks but Lupron and Orilissa do not increase risks. She will consider her options and call if she wo uld like to start treatment. Patient has had her thyroid evaluated and was recently started on medications that she has been tolerating well. Patient is following up with Dr. Noriega for wrist and hand pain that she takes 800 mg Ibupro fen daily. Allergies Allergen Reactions Latex Rash Lexapro [Escitalopram] [...] times daily. 2 Inhaler 11 busPIRone (BUSPAR) 7.5 MG tablet Take 7.5 mg six times a day 180 tablet 11 Cetirizine HCl (ZYRTEC PO) Take by mouth. Once a week Cholecalciferol (VITAMIN D3) 56097 units TABS Take 1 tablet by mouth [...] Take 1 tablet by mouth 3 times daily (with meals). 90 tab let 11 ferrous sulfate 325 mg tablet Take 1 [...] if needed for dizziness 60 tablet 0 montelukast (SINGULAIR) 10 mg tablet Take 1 tablet by mouth nightly. 30 tablet 11 pseudoephedrine-guaiFENesin (MUCINEX D) 60-600 mg per 12 hr tablet Take 1 tablet by codi th 2 times daily. 14 tablet 0 UNABLE TO FIND Med Name: nell No current facility-administered medications on file prior to visit. Transition Lead history: Menstrual history: Patient's last menstrual period was 07/15/2019 (exact date). Control: condoms STD history: none Sexual history: Patient is sexuall active with Male. STD risk: very low risk of STD exposure. Testing desired: none ROS: General: negative -Urinary: negative -Transition Lead: none. Psychiatric: negative PE : Vitals: 07/17/19 1555 BP: (!) 140/94 Pulse: 93 Resp: 18 PainSc: 8 PainLoc: Wrist General: moderately obese female. She appears in no apparent distress, well developed and w ell nourished and non-toxic Psych: oriented to time, place and person. Patient with normal affect. Recent Results (from the past 1008 hour(s)) Streptococcus Group A, Rapid Screen Collection Time: 06/11/19 16:56 Result Value Ref Range Rapid Strep A Screen Negative Negative Mononucleosis Screen Collection Time: 06/11/19 16:56 Result Value Ref Range Kemper Screen Negative Negative Culture, Strep A, Throat Collection Time: 06/11/19 16:56 Result Value Ref Range Culture No Group A Streptococcus isolated Vitamin D, Deficiency Screen (25-Hydroxy) Collection Time: 06/17/19 9:29 Result Value Ref Range Vitamin D, 25 Hydroxy 40 30 - 100 ng/mL CBC with Differential Collection Time: 06/17/19 9:29 Result Value Ref Range WBC 8.1 4.3 - 10.4 K/uL RBC 3.91 (L) 4.12 - 5.30 M/uL Hemoglobin 11.0 (L) 12.4 - 15.7 g/dL Hematocrit 32.5 (L) 37.7 - 47.0 % MCV 83.0 82.0 - 97.0 fL MCH 28.1 27.1 - 32.3 pg MCHC 33.8 32.0 - 36.9 g/dL RDW-CV 15.9 0.0 - 17.0 % Platelet Count 342 150 - 450 K/uL MPV 8.8 (L) 9.4 - 12.3 fL % Neutrophils 56.5 42.0 - 76.0 % % Lymphocytes 36.9 20.0 - 40.0 % % Monocytes 5.5 3.0 - 13.0 % % Eosinophils 0.8 0.0 - 7.0 % % Basophils 0.3 0.0 - 2.0 % Absolute Neutrophils 4.60 2.50 - 8.50 K/uL Absolute Lymphocytes 3.00 1.00 - 3.80 K/uL Absolute Monocytes 0.40 0.00 - 0.80 K/uL Absolute Eosinophils 0.10 0.00 - 0.70 K/uL Absolute Basophils 0.00 0.00 - 0.20 K/uL Iron and Iron Binding Capacity Collection Time: 06/17/19 9:29 Result Value Ref Range Iron 29 (L) 50 - 170 ug/dL TIBC 318 250 - 450 ug/dL Iron Saturation 9 (L) 15 - 50 % Ferritin Collection Time: 06/17/19 9:29 Result Value Ref Range Ferritin 11.3 6.2 - 137.0 ng/mL TSH Collection Time: 06/17/19 9:29 Result Value Ref Range TSH 4.25 (H) 0.36 - 3.74 uIU/mL Assessment/Plan: 1. Dysmenorrhea Patient continues to have menstrual pain. We discussed her ultrasound results which did not show signs of anything concerning. We discussed options such as IUD, pills, patches, and ri ngs but patient is hesitant to start treatment without evidence of a reason for her pain. We could do this surgically but there is not a guarantee that a problem would be found. Patien t will consider her options and call if she would like to be started on treatment. Return if symptoms worsen or fail to improve. This documentation prepared by Dioni Amaya medical service representative. All aspects of this chart revie wed for accuracy and content by Dr. Emily Avery at the date and time of service. Emily Avery DO 07/17/19 documented in this encounter Plan of Treatment +--------+ + + + + | Date | Type | Specialty | Care Team | Description | +--------+ + + + + | 02/18/ | Appointment | Rehabilitation | Erika Ernst, | | | 2019 | | | DO [address] | | | | | | [place] [address] | | | | | | [phone] | | | | | | | | | | | | Julia Fisher, | | | | | | PT | | +--------+ + + + + | 02/18/ | Appointment | Rehabilitation | Erika Ernst, | | | 2019 | | | DO [address] | | | | | | [place] [address] | | | | | | [phone] | | | | | | | | | | | | Ayon, Genesis, OT | | +--------+ + + + + | 02/25/ | Office | Primary Care | Erika Ernst, | | | 2019 | Visit | | [address] | | | | | | [place] [address] | | | | | | [phone] | | | | | | | [...] | | | | | [place] [address] | | | | | | [phone] | | | | | | | | +--------+ + + + + | 02/27/ | Appointment | Radiology | Dhara, | | | 2019 | | | DWAINE Ross [address] | | | | | [address] [place], | | | | | | [place] [address] | | | | | | [phone] | | | | | | | | +--------+ + + + + | 03/04/ | Appointment | Rehabilitation | Genesis Ayon OT | | | 2019 | | | | | +--------+ + + + + | 03/09/ | Office | Orthopedic Surgery | Jeffrey Gandhi, | | | 2019 | Visit | | [address] [facility] | | | | | | [place] [address] | | | | | | [phone] | | | | | | | [...] [place] | | | | | | [address] | | | | | | [phone] | | | | | | | [...] | | | | | [place] [address] | | | | | | [phone] | | | | | | | | | | | | Azul Yeboah, | | | | | | [address] | | | | | | [place] | | | | | | [place] [address] | | | | | | [phone] | | | | | | | [...] | | | | | | [place] [address] | | | | | | [phone] | | | | | | | | +--------+ + + + + documented as of this encounter Visit Diagnoses + + | Diagnosis | + + | Dysmenorrhea - Primary | + + documented in this encounter
--- OUTSIDE RECORDS SUMMARY | ~2020-02-18 | XMS | Encounter Summary ---
Demographics + + + | Address | [address] | | | [place] [address] | + + + | Home Phone [...] Team Providers + +------+ + | Care Utility Manager Name | Role | Phone | + +------+ + | Erika Ernst DO | PCP | | + +------+ + Reason for Visit + + + | Reason | Comments | + + + | Medication Refill | | | Assistance | | + + + Encounter Details +--------+ + + + + | Date | Type | Department | Care Team | Description | +--------+ + + + + | 10/11/ | Telephone | [facility] [facility] | Erika Ernst, | Medication Refill | | 2019 | | [facility] | DO [address] | Assistance | | | | [facility] [address] | [place] [address] | | | | [address] [place], | [phone] | | | | | [place] [address] | | | | | | [phone] | | | +--------+ + + + [...] | | | | | [place] [address] | | | | | | [phone] | | | | | | | | | | | | Julia Fisher, | | | | | | PT | | +--------+ + + + + | 02/18/ | Appointment | Rehabilitation | Erika Ernst, | | | 2019 | | | DO [address] | | | | | | [place] [address] | | | | | | [phone] | | | | | | | | | | | | Genesis Ayon OT | | +--------+ + + + + | 02/25/ | Office | Primary Care | Erika Ernst, | | | 2019 | Visit | | DO [address] | | | | | | [place] [address] | | | | | | [phone] | | | | | | | [...] | | | | | [place] [address] | | | | | | [phone] | | | | | | | | +--------+ + + + + | 02/27/ | Appointment | Radiology | Dhara, | | | 2019 | | | DWAINE Ross [address] | | | | | | [address] [facility], | | | | | | [place] [address] | | | | | | [phone] | | | | | | | | +--------+ + + + + | 03/04/ | Appointment | Rehabilitation | Genesis Ayon OT | | | 2019 | | | | | +--------+ + + + + | 03/09/ | Office | Orthopedic Surgery | Jeffrey Gandhi, | | 2019 | Visit | | [address] | | | | | | [place] [address] | | | | | | [phone] | | | | | | | [...] [place] | | | | | | [address] | | | | | | [phone] | | | | | | | [...] | | | | | [place] [address] | | | | | | [phone] | | | | | | | | | | | | Azul Yeboah, | | | | | | MD [address] | | | | | | [place] | | | | | | [place] [address] | | | | | | [phone] | | | | | | | [...] | | | | | | [place] [address] | | | | | | [phone] | | | | | | | | +--------+ + + + + documented as of this encounter Visit Diagnoses Not on filedocumented in this encounter"
--- OUTSIDE RECORDS SUMMARY | ~2020-02-18 | XMS | Encounter Summary ---
Demographics + + + | Address | [address] | | | [place] [address] | + + + | Home Phone [...] Team Providers + +------+ + | Care Creative Consultant Name | Role | Phone | [...] 07/17/ | Telephone | [place] [facility] | Inocencio Noriega | Follow-up | | 2019 | | [facility] | MD [address] | | | | | [address] | [address] | | | | | [place], [place] | [place] [address] | | | | | [address] | [phone] | | | | | [phone] | | | +--------+ + + + [...] | | | | | [place] [address] | | | | | | [phone] | | | | | | | | | | | | Julia Fisher, | | | | | | PT | | +--------+ + + + + | 02/18/ | Appointment | Rehabilitation | Erika Ernst, | | | 2019 | | | DO [address] | | | | | | [place] [address] | | | | | | [phone] | | | | | | | | | | | | Genesis Ayon OT | | +--------+ + + + + | 02/25/ | Office | Primary Care | Erika Ernst, | | | 2019 | Visit | | DO [address] | | | | | | [place] [address] | | | | | | [phone] | | | | | | | [...] | | | | | | [place] [address] | | | | | | [phone] | | | | | | | | +--------+ + + + + | 02/27/ | Appointment | Radiology | Dhara, | | | 2019 | | | [address]WAINE [address] | | | | | | [address] [facility], | | | | | | [place] [address] | | | | | | [phone] | | | | | | | | +--------+ + + + + | 03/04/ | Appointment | Rehabilitation | Genesis Ayon OT | | | 2019 | | | | | +--------+ + + + + | 03/09/ | Office | Orthopedic Surgery | Jeffrey Gandhi, | | | 2019 | Visit | | [place] [address] [facility] | | | | | | [place] [address] | | | | | | [phone] | | | | | | | [...] [place] | | | | | | [address] | | | | | | [phone] | | | | | | | [...] | | | | | [place] [address] | | | | | | [phone] | | | | | | | | | | | | Azul Yeboah, | | | | | | MD [address] | | | | | | [place] | | | | | | [place] [address] | | | | | | [phone] | | | | | | | [...] | | | | | | [place] [address] | | | | | | [phone] | | | | | | | | +--------+ + + + + documented as of this encounter Visit Diagnoses Not on filedocumented in this encounter"
--- OUTSIDE RECORDS SUMMARY | ~2020-02-18 | XMS | Encounter Summary ---
Demographics + + + | Address | [address] | | | [place] [address] | + + + | Home Phone [...] Team Providers + +------+ + | Care Transport Company Manager Name | Role | Phone | + +------+ + PCP | Unavailable | + +------+ + Encounter Details +--------+ + + + + | Date | Type | Department | Care Team | Description | +--------+ + + + + | 05/12/ | Hospital | [facility] | Camille Bush | | | 2017 | Encounter | [facility] | [address] | | | | | [facility] [address] | [address] [facility], | | | | | [address] [facility], | [place] [address] | | | | | [place] [address] | [phone] | | | | | [phone] | | | +--------+ + + + [...] | | | | | [place] [address] | | | | | | [phone] | | | | | | | | | | | | Julia Fisher, | | | | | | PT | | +--------+ + + + + | 02/18/ | Appointment | Rehabilitation | Erika Ernst, | | | 2019 | | | DO [address] | | | | | | [place] [address] | | | | | | [phone] | | | | | | | | | | | | Genesis Ayon, OT | | +--------+ + + + + | 02/25/ | Office | Primary Care | Erika Ernst, | | | 2019 | Visit | | DO [address] | | | | | | [place] [address] | | | | | | [phone] | | | | | | | [...] | | | | | [place] [address] | | | | | | [phone] | | | | | | | | +--------+ + + + + | 02/27/ | Appointment | Radiology | Dhara, | | | 2019 | | | DWAINE Ross [address] | | | | [address] [place], | | | | | | [place] [address] | | | | | | [phone] | | | | | | | [...] ST | | | | | | [place] [address] | | | | | | [phone] | | | | | | | [...] [place] | | | | | | [address] | | | | | | [phone] | | | | | | | | +--------+ + + + + | 03/25/ | Appointment | Rehabilitation | Genesis Aoyn OT | | | 2020 | | | | | +--------+ + + + + | 04/08/ | Office | Neurology | Erika Ernst, | | | 2019 | Visit | | DO [address] | | | | | | [place] [address] | | | | | | [phone] | | | | | | | | | | | | Azul Yeboah, | | | | | | MD [address] | | | | | | [place] | | | | | | [place] [address] | | | | | | [phone] | | | | | | | [...] | | | | | | [place] [address] | | | | | | [phone] | | | | | | | | +--------+ + + + + documented as of this encounter Visit Diagnoses Not on filedocumented in this encounter"
--- OUTSIDE RECORDS SUMMARY | ~2020-02-18 | XMS | Encounter Summary ---
Demographics + + + | Address | [address] | | | [place] [address] | + + + | Home Phone [...] Team Providers + +------+ + | Care Pinsetter Mechanic Automatic Name | Role | Phone | + +------+ + | Erika Ernst DO | PCP | | + +------+ + Reason for Visit + + + | Reason | Comments | + + + | Migraine | nausea, vomiting | + + + Encounter Details +--------+---------+ + + + | Date | Type | Department | Care Team | Description | +--------+---------+ + + + | 08/21/ | Office | [place] [facility] | Brandi Pitts | Intractable | | 2019 | Visit | [facility] | [address] | hemiplegic migraine | | | | [facility] [address] | [address] [place] | with status | | | | [address] [place], | [place] [address] | migrainosus (Primary | | | | [place] [address] | [phone] | Dx); Intractable | | | | [phone] | | vomiting with | | | | | | nausea, unspecified | | | | | | vomiting type | +--------+---------+ + + + Social [...] + + + | Blood Pressure | 138/92 | 08/21/2019 8:36 AM | Large cuff, right | | | | PST | arm | + + + + + | Pulse | 76 | 08/21/2019 8:36 AM | R | | | | PST | | + + + + + | Temperature | 36.8 C (98.2 F) | 08/21/2019 8:36 AM | | | | | PST | | + + + + + | Respiratory Rate | 16 | 08/21/2019 8:36 AM | | | | | PST | | + + + + + | Oxygen Saturation | 97% | 08/21/2019 8:36 AM | RA | | | | PST | | + + + + + | Inhaled Oxygen | - | - | | | Concentration | | | | + + + + + | Weight | 171.8 kg (378 lb | 08/21/2019 8:36 AM | | | | 12.8 oz) | PST | | + + + + + | Height | 177.8 cm (5' 10") | 08/21/2019 8:36 AM | Stated | | | | PST | | + + + + + | Body Mass Index | 54.35 | 08/21/2019 8:36 AM | | | | | PST | | + + + + + documented in this encounter Progress Notes Haseeb Mcguire RN - 08/21/2019 8:35 AM PSTIV pulls blood. Flushes well without pain or sw elling. Haseeb Mcguire RN IV stop at 1039. Patient states, "the pain medicine helped and overall I feel better." ITCoHaseeb trujillo RN - 1 10/21/2018 8:35 AM PSTPIV started at 0931. Fluid stared at 0932. Stayed with patient to make sure no s/s of infiltration were present. IV zofran administered. IM toradol given. Haseeb Mcguire RN Brandi Marion, - 08/21/2019 8:35 AM PSTFormatting of this note might be different from t sharon original. Patient ID: Andrea Suh is a 29 y.o. year old female Chief Complaint: Chief Complaint Patient presents with Migraine nausea, vomiting Assessment and Plan: 1. Intractable hemiplegic migraine with status migrainosus 2. Intractable vomiting with nausea, unspecified vomiting type We treated her migraine in the walk-in clinic today with a 500 cc bolus of lactated Ringer' s, Zofran 8 mg IV, Toradol 60 mg IM. Imitrex was sent to her pharmacy for future migraine symptoms and she was told to follow-up with her PCP. Subjective: HPI: Patient presents to the [facility] for migraine. Yesterday morning she woke up with a dull, aching headache. She then developed pressure beh ind her eyes, nausea, and vomiting since 1pm yesterday. She has tried taking Tylenol and Ibu profen but unfortunately vomited after taking them. She has been unable to keep water down a nd feels nauseous. She reports that the pain in her head is a 7/10 and is now sharp behind h er eyes. She usually has ringing in her ears with the migraines but is not currently experie ncing it today. She has a history of post-traumatic brain syndrome, chronic pain, and anxiety, and migraine s. Patient's medications, allergies, past medical, surgical, social and family histories were obtained and reviewed as appropriate. Review of Systems Constitutional: Negative. HENT: Negative. Respiratory: Negative. Cardiovascular: Negative. Psychiatric/Behavioral: Negative. Objective: Vitals: BP (!) 138/92 Comment: Large cuff, right arm | Pulse 76 Comment: R | Temp 36.8 C (98.2 F) (Temporal) | Resp 16 | Ht 1.778 m (5' 10") Comment: Stated | Wt (!) 171.8 kg (378 lb 12 .8 oz) | LMP (Within Weeks) | SpO2 97% Comment: RA | No | BMI 54.35 kg/m Physical Exam Constitutional: Appearance: She is well-developed. She is morbidly obese. Comments: Uncomfortable appearing HENT: Head: Normocephalic and atraumatic. Skin: General: Skin is warm and dry. Neurological: Mental Status: She is alert and oriented to person, place, and time. Cranial Nerves: Cranial nerves are intact. Motor: Motor function is intact. Coordination: Coordination is intact. Gait: Gait is intact. Psychiatric: Attention and Perception: Attention normal. Mood and Affect: Affect is tearful. Speech: Speech normal. Behavior: Behavior normal. Cognition and Memory: Cognition normal. Judgment: Judgment normal. Entered by Marissa Bautista CNA 2, [facility] SYSTEMRicardo, acting as scribe for Brandi Pitts DO. The documentation recorded by the scribe accurately reflects the service [facility] and the decisions made by me. Electronically signed by: Brandi Pitts DO 08/21/2019 9:33 AM Note: Part of this report was transcribed using voice recognition software. Every effort wa s made to ensure accuracy. However, inadvertent computerized medical transcription supervisor errors may be pre sent. documented in this encounter Plan of Treatment +--------+ + + + + | Date | Type | Specialty | Care Team | Description | +--------+ + + + + | 02/18/ | Appointment | Rehabilitation | Erika Ernst, | | | 2019 | | | DO [address] | | | | | | [place] [address] | | | | | | [phone] | | | | | | | | | | | | Julia Fisher, | | | | | | PT | | +--------+ + + + + | 02/18/ | Appointment | Rehabilitation | Erika Ernst, | | | 2019 | | | DO [address] | | | | | | [place] [address] | | | | | | [phone] | | | | | | | | | | | | Genesis Ayon OT | | +--------+ + + + + | 02/25/ | Office | Primary Care | Erika Ernst, | | | 2019 | Visit | | DO [address] | | | | | | [place] [address] | | | | | | [phone] | | | | | | | [...] | | | | | [place] [address] | | | | | | [phone] | | | | | | | | +--------+ + + + + | 02/27/ | Appointment | Radiology | Dhara, | | | 2019 | | | DWAINE Ross [address] | | | | | | [address] [place], | | | | | | [place] [address] | | | | | | [phone] | | | | | | | | +--------+ + + + + | 03/04/ | Appointment | Rehabilitation | Genesis Ayon OT | | | 2019 | | | | | +--------+ + + + + | 03/09/ | Office | Orthopedic Surgery | Jeffrey Gandhi, | | | 2019 | Visit | | [address] [facility] | | | | | | [place] [address] | | | | | | [phone] | | | | | | | [...] [place] | | | | | | [address] | | | | | | [phone] | | | | | | | [...] | | | | | [place] [address] | | | | | | [phone] | | | | | | | | | | | | Azul Yeboah, | | | | | | [address] | | | | | | [place] | | | | | | [place] [address] | | | | | | [phone] | | | | | | | [...] | | | | | | [place] [address] | | | | | | [phone] | | | | | | | | +--------+ + + + + documented as of this encounter Visit Diagnoses + + | Diagnosis | + + | Intractable hemiplegic migraine with status migrainosus - Primary Hemiplegic | | migraine, with intractable migraine, so stated, with status migrainosus | + + | Intractable vomiting with nausea, unspecified vomiting type | + + documented in this encounter Administered Medications + +--------+ +-------+------+ + | Medication Order | MAR | Action | Dose | Rate | Site | | | Action | Date | | | | + +--------+ +-------+------+ + | ketorolac (TORADOL) injection | Given | 08/21/20 | 60 mg | | Deltoid- | | 60 mg 60 mg, Intramuscular, | | 19 9:43 | | | Left | | ONCE, 08/21/19 at 1000, For 1 | | AM PST | | | | | dose | | | | | | + +--------+ +-------+------+ + +---+---+ | | | +---+---+ + +---------+ +--------+-------+--------+ | lactated ringers (LR) bolus | New Bag | 08/21/20 | 1,000 | 1000 | Right | | 1,000 mL 1,000 mL, Intravenous, | | 19 9:32 | mLs | mL/hr | Arm | | Administer over 1 Hours, ONCE, | | AM PST | | | | | 08/21/19 at 1000, For 1 dose | | | | | | + +---------+ +--------+-------+--------+ +---+---+ | | | +---+---+ + +-------+ +------+---+--------+ | ondansetron (ZOFRAN) injection | Given | 08/21/20 | 8 mg | | Right | | 8 mg 8 mg, Intravenous, ONCE, | | 19 9:52 | | | Arm | | 08/21/19 at 0930, For 1 dose | | AM PST | | | | + +-------+ +------+---+--------+ +---+---+ | | | +---+---+ documented in this encounter
--- OUTSIDE RECORDS SUMMARY | ~2020-02-18 | XMS | Encounter Summary ---
Demographics + + + | Address | [address] | | | [place] [address] | + + + | Home Phone [...] Team Providers + +------+ + | Care Social Insurance Analyst Name | Role | Phone | + +------+ + | Erika Ernst DO | PCP | | + +------+ + Encounter Details +--------+ + + + + | Date | Type | Department | Care Team | Description | +--------+ + + + + | 08/29/ | Abstract | [facility] [facility] | Uma, | | | 2016 | | [facility] [address] | Hilary Henry RN | | | | | [address] | | | | | | [place] | | | | | | [address] | | | | | | [phone] | | | +--------+ + + + [...] | | | | | [place] [address] | | | | | | [phone] | | | | | | | | | | | | Julia Fisher, | | | | | | PT | | +--------+ + + + + | 02/18/ | Appointment | Rehabilitation | Erika Ernst, | | | 2019 | | | DO [address] [place] | | | | | | [place] [address] | | | | | | [phone] | | | | | | | | | | | | Genesis Ayon, OT | | +--------+ + + + + | 02/25/ | Office | Primary Care | Erika Ernst, | | | 2019 | Visit | | DO [address] [place] | | | | | | [place] [address] | | | | | | [phone] | | | | | | | [...] | | | | | | [place] [address] | | | | | | [phone] | | | | | | | | +--------+ + + + + | 02/27/ | Appointment | Radiology | Dhara, | | | 2019 | | | [address] | | | | | | 4TH [facility], | | | | | | [place] [address] | | | | | | [phone] | | | | | | | | +--------+ + + + + | 03/04/ | Appointment | Rehabilitation | Genesis Ayon OT | | | 2019 | | | | | +--------+ + + + + | 03/09/ | Office | Orthopedic Surgery | Jeffrey Gandhi, | | 2019 | Visit | | [address] | | | | | | [place] [address] | | | | | | [phone] | | | | | | | | +--------+ + + + + | 03/11/ | Appointment | Rehabilitation | Genesis Ayon OT | | 2019 | | | | | +--------+ + + + + | 03/18/ | Appointment | Rehabilitation | Genseis Ayon OT | | 2019 | | | | | +--------+ + + + + | 03/19/ | Office | Obstetrics and | Emily Avery | | 2019 | Visit | Gynecology | DO Jackelyn Garcia | | | | | | [address] | | | | | | [place] | | | | | | [address] | | | | | | [phone] | | | | | | | [...] | | | | | [place] [address] | | | | | | [phone] | | | | | | | | | | | | Azul Yeboah, | | | | | | MD [address] | | | | | | [place] | | | | | | [place] [address] | | | | | | [phone] | | | | | | | [...] | | | | | | [place] [address] | | | | | | [phone] | | | | | | | | +--------+ + + + + documented as of this encounter Visit Diagnoses Not on filedocumented in this encounter"
--- OUTSIDE RECORDS SUMMARY | ~2020-02-18 | XMS | Encounter Summary ---
Demographics + + + | Address | [address] | | | [place] [address] | + + + | Home Phone [...] Providers + +------+ + | Care Senior Data Integration Developer Name | Role | Phone | [...] | | | | severe | [place] [address] | [place] | | | | | obesity due | Phone: | [phone] | | | | | to excess | [phone] | Phone: | | | | | calories | Fax: | [phone] | | | | | without | [phone] | Fax: | | | | | serious | | [phone] | | | | | comorbidity | [...] | | | | | | | MD MED NUTR | | | | | | | THER, 1ST, | | | | | | | INDIV, EA 15 | | | | | | | MIN MD MED | | | | | | [...] | +--------+ + + + + | 11/19/ | Hospital | [place] [facility] | Erika Ernst, | Essential | | 2019 | Encounter | HOSPITAL NUTRITION | DO [address] | hypertension; Class | | | | SERVICES [address] | [place] [address] | 3 severe obesity due | | | | [place], [place] | [phone] | to excess calories | | | | [address] | | without serious | | | | [phone] | Janel Webster, | comorbidity with | | | | | RD | body mass index | | | | | | (BMI) of 50.0 to | | | | | | 59.9 in adult (HCC); | | | | | | Dietary counseling | | | | | | and surveillance | +--------+ + + + + [...] encounter Progress Notes Janel Webster, RD - 11/19/2018 3:54 PM PSTAssessment: Dx:Obesity, HTN New pt being seen here for wt management/HTN.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 States she will see a the apist regularly and will do yoga/mediation once a week. Pt reports her physial activity is l imited due to sprained ankle and pain in her wrist per pt/ States that she does modified kic kboxing twice a week. Monitors blood pressure daily per pt; states it goes up and down throu ghout the day. Pt showed me her phone food log, recorded calories have been about ~1200kcal/ d. Food recall per pt: B: often skips or ervin bar or banana L: skips or salad with nuts, egg s, raspberry vinagretter D: spaghetti squash or duran burrito. Snacks: crackers, cake, popcor n, fruit. Reports stress eating after work, will continue to snack on a food items like crac kers or cake in front of the tv per pt. Height:5'10 Current wt:375# BMI:53.9 (obesity class III) Nutrition Diagnosis: Overweight/obesity (NC 3.3) r/t stress, limitations with physical acti vity and dietary habits AEB pt BMI 53.9 obesity class III, reported stress eating and skip ping meals. Intervention: Provided education and handouts regarding myplate, portion control and reducing distraction s when eating. Serving goal: carobhydrates 5-6 servings/d (1/2 whole grains) fruits 3, veget sd 5, dairy 3 (low fat), protein 5-6 , healthy fats 3-4. Encouraged pt to watch for servi ng size and to portion out her foods especially snacks, then to put it away where it is not as visible in the pantry or fridge. Encouraged pt to keep all foods in the kitchen and to us e small plates and utensils. Goal will be to have 3 meals/ d, no skipping meals. Additional goal of 64oz of water/d. Wt loss goal for next visit will be to lose 8-10#. Pt receptive to education. Monitor/Evaluation: Will monitor wt trends, nutrition related labs and food diary. Scheduled for a revisit in 6 to 8 weeks. Time spent with pt: 1 hour Electronically Signed by: Janel Webster RD 11/19/2018 15:54 documented in this encounter Plan of Treatment +--------+ + + + + | Date | Type | Specialty | Care Team | Description | +--------+ + + + + | 02/18/ | Appointment | Rehabilitation | Erika Ernst, | | | 2019 | | | DO [address] | | | | | | [place] [address] | | | | | | [phone] | | | | | | | | | | | | Julia Fisher, | | | | | | PT | | +--------+ + + + + | 02/18/ | Appointment | Rehabilitation | Erika Ernst, | | | 2019 | | | DO [address] | | | | | | [place] [address] | | | | | | [phone] | | | | | | | | | | | | Genesis Ayon OT | | +--------+ + + + + | 02/25/ | Office | Primary Care | Erika Ernst, | | | 2019 | Visit | | DO [address] [place] [address] | | | | | | [place] [address] | | | | | | [phone] | | | | | | | | +--------+ + + + + | 02/25/ | Appointment | Rehabilitation | Geensis Ayon OT | | | 2019 | | | | | +--------+ + + + + | 02/26/ | Virtual | Rehabilitation | Usha Rodriguez | | 2019 | Office | | MD Precious [address] | | | | Visit | | [place] | | | | | | [place] [address] | | | | | | [phone] | | | | | | | | +--------+ + + + + | 02/27/ | Appointment | Radiology | Dhara, | | | 2019 | | | [address] | | | | | [address] [place], | | | | | | [place] [address] | | | | | | [phone] | | | | | | | [...] ST | | | | | | [place] [address] | | | | | | [phone] | | | | | | | [...] [place] | | | | | | [address] | | | | | | [phone] | | | | | | | [...] | | | | | [place] [address] | | | | | | [phone] | | | | | | | | | | | | Azul Yeboah, | | | | | | [address] | | | | | | [place] | | | | | | [place] [address] | | | | | | [phone] | | | | | | | [...] | | | | | | [place] [address] | | | | | | [phone] | | | | | | | | +--------+ + + + + + + +--------+ + + | Name | Type | Priori | Associated Diagnoses | Order Schedule | | | | ty | | | + + +--------+ + + | * [facility] [facility] | Outpatient | Routin | Essential | Ordered: 11/08/2018 | | [facility] Nutrition | Referral | e | hypertension [...] | | 59.9 in adult (HCC) | | + + +--------+ + + documented as of this encounter Visit Diagnoses + + | Diagnosis | + + | Essential hypertension Unspecified essential hypertension | + + | Class 3 severe obesity due to excess calories without serious comorbidity with body | | mass index (BMI) of 50.0 to 59.9 in adult (HCC) | + + | Dietary counseling and surveillance Dietary surveillance and counseling | + + documented in this encounter"
--- OUTSIDE RECORDS SUMMARY | ~2020-02-18 | XMS | Encounter Summary ---
Demographics + + + | Address | [address] | | | [place] [address] | + + + | Home Phone [...] Providers + +------+ + | Care Chief Order Dispatcher Name | Role | Phone | + +------+ + | Erika Ernst DO | PCP | | + +------+ + Reason for Visit +--------+ + | Reason | Comments | +--------+ + | Other | Please advise | +--------+ + Encounter Details +--------+ + + + + | Date | Type | Department | Care Team | Description | +--------+ + + + + | 01/30/ | Telephone | [facility] [facility] | Inocencio Noriega | Other (Please advise | | 2019 | | [facility] | MD [address] | ) | | | | [address] | [address] | | | | | [place], [place] | [place] [address] | | | | | [address] | [phone] | | | | | [phone] | | | +--------+ + + + [...] | | | | | [place] [address] | | | | | | [phone] | | | | | | | | | | | | Julia Fisher, | | | | | | PT | | +--------+ + + + + | 02/18/ | Appointment | Rehabilitation | Erika Ernst, | | | 2019 | | | DO [address] | | | | | | [place] [address] | | | | | | [phone] | | | | | | | | | | | | Genesis Ayon OT | | +--------+ + + + + | 02/25/ | Office | Primary Care | Erika Ernst, | | | 2019 | Visit | | DO [address] | | | | | | [place] [address] | | | | | | [phone] | | | | | | | [...] [place] | | | | | | [place] [address] | | | | | | [phone] | | | | | | | | +--------+ + + + + | 02/27/ | Appointment | Radiology | Dhara, | | | 2019 | | | [address] | | | | | | [address]TH [facility], | | | | | | [place] [address] | | | | | | [phone] | | | | | | | | +--------+ + + + + | 03/04/ | Appointment | Rehabilitation | Genesis Ayon OT | | | 2019 | | | | | +--------+ + + + + | 03/09/ | Office | Orthopedic Surgery | Jeffrey Gandhi, | | | 2019 | Visit | | MD [address] [facility] | | | | | | [place] [address] | | | | | | [phone] | | | | | | | [...] [place] | | | | | | [address] | | | | | | [phone] | | | | | | | [...] | | | | | [place] [address] | | | | | | [phone] | | | | | | | | | | | | Azul Yeboah, | | | | | | MD [address] | | | | | | [place] | | | | | | [place] [address] | | | | | | [phone] | | | | | | | [...] | | | | | | [place] [address] | | | | | | [phone] | | | | | | | | +--------+ + + + + documented as of this encounter Visit Diagnoses Not on filedocumented in this encounter"
--- OUTSIDE RECORDS SUMMARY | ~2020-02-18 | XMS | Encounter Summary ---
Demographics + + + | Address | [address] | | | [place] [address] | + + + | Home Phone [...] Team Providers + +------+ + | Care Fisheries Technical Officer Name | Role | Phone | + +------+ + PCP | Unavailable | + +------+ + Encounter Details +--------+ + + + + | Date | Type | Department | Care Team | Description | +--------+ + + + + | 05/22/ | [facility] | Spenser Roberts NP | | | 2015 | Encounter | [facility] | [address], | | | | | [facility] [address] | [place] [address] | | | | | [address] [facility], | [phone] | | | | | [place] [address] | | | | | | [phone] | | | +--------+ + + + [...] | | | | | [place] [address] | | | | | | [phone] | | | | | | | | | | | | Julia Fisher, | | | | | | PT | | +--------+ + + + + | 02/18/ | Appointment | Rehabilitation | Erika Ernst, | | | 2019 | | | DO [address] | | | | | | [place] [address] | | | | | | [phone] | | | | | | | | | | | | Genesis Ayon OT | | +--------+ + + + + | 02/25/ | Office | Primary Care | Erika Ernst, | | | 2019 | Visit | | DO [address] | | | | | | [place] [address] | | | | | | [phone] | | | | | | | [...] | | | | | | [place] [address] | | | | | | [phone] | | | | | | | | +--------+ + + + + | 02/27/ | Appointment | Radiology | Dhara, | | | 2019 | | | [address] | | | | | | 4TH [facility], | | | | | | [place] [address] | | | | | | [phone] | | | | | | | | +--------+ + + + + | 03/04/ | Appointment | Rehabilitation | Genesis Ayon OT | | | 2019 | | | | | +--------+ + + + + | 03/09/ | Office | Orthopedic Surgery | Jeffrey Gandhi, | | 2019 | Visit | | [address] | | | | | | [place] [address] | | | | | | [phone] | | | | | | | [...] [place] | | | | | | [address] | | | | | | [phone] | | | | | | | [...] | | | | | [place] [address] | | | | | | [phone] | | | | | | | | | | | | Azul Yeboah, | | | | | | MD [address] | | | | | | [place] | | | | | | [place] [address] | | | | | | [phone] | | | | | | | [...] | | | | | | [place] [address] | | | | | | [phone] | | | | | | | | +--------+ + + + + documented as of this encounter Visit Diagnoses Not on filedocumented in this encounter"
--- OUTSIDE RECORDS SUMMARY | ~2020-02-18 | XMS | Encounter Summary ---
Demographics + + + | Address | [address] | | | [place] [address] | + + + | Home Phone | | + + + | Preferred Language | Unknown | + + + | Marital Status | Single | + + + | Temple Affiliation | Unknown | + + + | Race | Unknown | + + + | Ethnic Group | Unknown | + + + Author + + + | Author | [facility] | | | and [place] | + + + | Organization | [facility] | | | [...] Team Providers + +------+ + | Care Conservation Scientist Name | Role | Phone | [...] | 2018 | | HOSPITAL [facility] | STRIP POLISHER [address] | immobilizing cast | | | | CENTER [address] | [place] | (Primary Dx) | | | | [place] | [address] | | | | | [address] | | | | | | [phone] | | | +--------+ + + + [...] be sent through Care Everywhere.Zohra Marrero Instructions (Syriac)documented in this encounter Medications at Time of [...] 1-2 | 60 vial | 0 | 04/21/ | 08/13/ | | mL nebulizer | treatments in [...] | 04/12/20 | | | (VITAMIN D3) 68158 | mouth Once a week | tablet [...] | | 2019 | | | DO [facility] | | | | | | [place] [address] | | | | | | [phone] | | | | | | | | | | | | Julia Fisher, | | | | | | PT | | +--------+ + + + + | 02/18/ | Appointment | Rehabilitation | Erika Ernst, | | | 2019 | | | DO [address] | | | | | | [place] [address] | | | | | | [phone] | | | | | | | | | | | | Genesis Ayon, OT | | +--------+ + + + + | 02/25/ | Office | Primary Care | Erika Ernst, | | | 2019 | Visit | | DO [address] | | | | | | [place] [address] | | | | | | [phone] | | | | | | | | +--------+ + + + + | 02/25/ | Appointment | Rehabilitation | Genesis Ayon, SUSAN | | 2019 | | | | | +--------+ + + + + | 02/26/ | Virtual | Rehabilitation | Usha Rodriguez | | 2019 | Office | | MD Precious [address] | | | | Visit | | [address] [place] | | | | | | [place] [address] | | | | | | [phone] | | | | | | | | +--------+ + + + + | 02/27/ | Appointment | Radiology | Dhara, | | | 2019 | | | [address] | | | | | | [address] [place], | | | | | | [place] [address] | | | | | | [phone] | | | | | | | | +--------+ + + + + | 03/04/ | Appointment | Rehabilitation | Genesis Ayno OT | | | 2019 | | | | | +--------+ + + + + | 03/09/ | Office | Orthopedic Surgery | Jeffrey Gandhi, | | | 2019 | Visit | | [address] | | | | | | [place] [address] | | | | | | [phone] | | | | | | | | +--------+ + + + + | 03/11/ | Appointment | Rehabilitation | Genesis Ayon, [...] [place] | | | | | | [address] | | | | | | [phone] | | | | | | | | +--------+ + + + + | 03/25/ | Appointment | Rehabilitation | Genesis yAon OT | | | 2019 | | | | | +--------+ + + + + | 04/08/ | Office | Neurology | Erika Ernst, | | | 2019 | Visit | | DO [address] | | | | | | [place] [address] | | | | | | [phone] | | | | | | | | | | | | Azul Yeboah, | | | | | | MD [address] | | | | | | [place] | | | | | | [place] [address] | | | | | | [phone] | | | | | | | [...] | | | | | | [place] [address] | | | | | | [phone] | | | | | | | [...]
--- OUTSIDE RECORDS SUMMARY | ~2020-02-18 | XMS | Encounter Summary ---
Demographics + + + | Address | [address] | | | [place] [address] | + + + | Home Phone [...] Team Providers + +------+ + | Care Bending Frame Operator Name | Role | Phone | [...] | +--------+ + + + + | 05/30/ | Telephone | [facility] [facility] | Emily Avery | Results, Imaging | | 2019 | | [facility] | DO [address] | | | | | CLINIC [address] | [address] | | | | | [address] [place], | [place], [place] | | | | | [place] [address] | [address] | | | | | [phone] | | | | | | | [...] | | | | | [place] [address] | | | | | | [phone] | | | | | | | | | | | | Julia Fisher, | | | | | | PT | | +--------+ + + + + | 02/18/ | Appointment | Rehabilitation | Erika Ernst, | | | 2019 | | | DO [address] [place] | | | | | | [place] [address] | | | | | | [phone] | | | | | | | | | | | | Genesis Ayon, SUSAN | | +--------+ + + + + | 02/25/ | Office | Primary Care | Erika Ernst, | | | 2019 | Visit | | DO [address] [place] | | | | | | [place] [address] | | | | | | [phone] | | | | | | | [...] | | | | | | [place] [address] | | | | | | [phone] | | | | | | | | +--------+ + + + + | 02/27/ | Appointment | Radiology | Dhara, | | | 2019 | | | [address] | | | | | | [address]TH [facility], | | | | | | [place] [address] | | | | | | [phone] | | | | | | | | +--------+ + + + + | 03/04/ | Appointment | Rehabilitation | Genesis Ayon OT | | | 2019 | | | | | +--------+ + + + + | 03/09/ | Office | Orthopedic Surgery | Jeffrey Gandhi, | | | 2019 | Visit | | [address] [facility] | | | | | | [place] [address] | | | | | | [phone] | | | | | | | [...] [place] | | | | | | [address] | | | | | | [phone] | | | | | | | [...] | | | | | [place] [address] | | | | | | [phone] | | | | | | | | | | | | Azul Yeboah, | | | | | | MD [address] | | | | | | [place] | | | | | | [place] [address] | | | | | | [phone] | | | | | | | [...] | | | | | | [place] [address] | | | | | | [phone] | | | | | | | | +--------+ + + + + documented as of this encounter Visit Diagnoses Not on filedocumented in this encounter"
--- OUTSIDE RECORDS SUMMARY | ~2020-02-18 | XMS | Encounter Summary ---
Demographics + + + | Address | [address] | | | [place] [address] | + + + | Home Phone [...] Team Providers + +------+ + | Care Global President Name | Role | Phone | + [...] | MEDICAL CLINIC [address] | [place] [address] | (Primary Dx) | | | | [address] [place], | [phone] | | | | | [place] [address] | | | | | | [phone] | | | +--------+ + + + [...] | | | | | [place] [address] | | | | | | [phone] | | | | | | | | | | | | Julia Fisher, | | | | | | PT | | +--------+ + + + + | 02/18/ | Appointment | Rehabilitation | Erika Ernst, | | | 2019 | | | DO [address] [place] | | | | | | [place] [address] | | | | | | [phone] | | | | | | | | | | | | Genesis Ayon, SUSAN | | +--------+ + + + + | 02/25/ | Office | Primary Care | Erika Ernst, | | | 2019 | Visit | | DO [address] [place] [address] | | | | | | [place] [address] | | | | | | [phone] | | | | | | | [...] | | | | | [place] [address] | | | | | | [phone] | | | | | | | | +--------+ + + + + | 02/27/ | Appointment | Radiology | Dhara, | | | 2019 | | | [address] | | | | | | [address] [place], | | | | | | [place] [address] | | | | | | [phone] | | | | | | | | +--------+ + + + + | 03/04/ | Appointment | Rehabilitation | Genesis Ayon OT | | | 2019 | | | | | +--------+ + + + + | 03/09/ | Office | Orthopedic Surgery | Jeffrey Gandhi, | | | 2019 | Visit | | [address] | | | | | | [place] [address] | | | | | | [phone] | | | | | | | [...] [place] | | | | | | [address] | | | | | | [phone] | | | | | | | [...] | | | | | [place] [address] | | | | | | [phone] | | | | | | | | | | | | Azul Yeboah, | | | | | | MD [address] | | | | | | [place] | | | | | | [place] [address] | | | | | | [phone] | | | | | | | [...] | | | | | | [place] [address] | | | | | | [phone] | | | | | | | [...] [facility] | [address] | [place] | [phone] | | [facility] | | [address] | | | [facility] | | | | + [...] | | ENIO | | | | Certified Orthotic Fitter | | | | | | [address] [facility] | | | | | | [place] [address] | | | | | | CLIA #[id number] | | | | + + + [...] + + + | REFERENCE LAB | [address] [facility] | [place], [place] | | | [facility] - | | [address] | | | [place] | | | | + + + + + documented in this encounter Visit Diagnoses + + | Diagnosis | + + | Subclinical hypothyroidism - Primary Other specified acquired hypothyroidism | + + documented in this encounter"
--- OUTSIDE RECORDS SUMMARY | ~2020-02-18 | XMS | Encounter Summary ---
Demographics + + + | Address | [address] | | | [place] [address] | + + + | Home Phone [...] + + + | Author | [facility] | | | and [place] | + + + | Organization | [facility] | | [...] Team Providers + +------+ + | Care Fur Liner Name | Role | Phone | + [...] | | | PT TREAT | [place] [address] | [place] [address] | | | | | | Phone: | Phone: | | | | | | [phone] | [phone] | | | | | | Fax: | Fax: | | | | | | [phone] | [phone] | +--------+--------+ + + + + Encounter Details +--------+ + + + + | Date | Type | Department | Care Team | Description | +--------+ + + + + | 01/16/ | Hospital | [place] [facility] | Erika Ernst, | Acute pain of right | | 2019 | Encounter | HOSPITAL THERAPY PT | DO [address] | knee (Primary Dx); | | | | [address] [place] | [place] [address] | Sprain of | | | | [place], [place] | [phone] | calcaneofibular | | | | [address] | | ligament of left | | | | [phone] | Julia Peña, | ankle, subsequent | | | | | RESIDENT CARE MANAGER | encounter; History | | | | | | of falling; Class 3 | | | | | [...] | | 59.9 in adult (HCC) | +--------+ + + + + Social [...] | 11/26/19 | | | (VITAMIN D3) 57653 | mouth Once a week | tablet [...] +---------+ + + | predniSONE | Take 2 tablets by | 10 | 0 | 01/17/20 | | | (DELTASONE) 20 mg | mouth Daily for 5 | tablet | | 19 | 9 | | tabletIndications: | days. | | | | | | Moderate persistent | | | | | | | asthma with (acute) | | | | | | | exacerbation | | | | | | + [...] + documented as of this encounter Progress Julia Dahl PT - 01/16/2019 1:10 PM PDTICD 10 codes updated per forensic scientist request see below: Coding has been updated for this PT series ([id number]) based on the documentation on the plan of care. Please code visit diagnoses as follows: Primary: M25.561 Pain in right knee Secondary: S93.402D Sprain of unspecified ligament of left ankle, subsequent encounter E66.9 Obesity, unspecified Z91.81 History of falling Electronically signed by: Julia Fisher PT, 01/16/2019 13:10 Julia Banks, RESIDENT CARE MANAGER - 01/16/2019 8:53 AM PDT . [facility] THERAPY PT [address] [place] [address] Physical Therapy Daily Treatment Note Date: 01/16/2019 Patient Information Patient Name: Andrea Suh Date of : 1990 Age: 28 y.o. Encounter Diagnoses Code Name Primary? M25.561 Acute pain of right knee Yes S93.412D Sprain of calcaneofibular ligament of left ankle, subsequent encounter Z91.81 History of falling E66.01, Z68.43 Class 3 severe obesity due to excess calories without serious comorbidit y with body mass index (BMI) of 50.0 to 59.9 in adult (HCC) Date of Onset: 10/15/2018 Referring Provider: Erika Ernst DO Objective Pain Assessment: Pain Rating Pre Assessment: 0 Pain Rating Post Assessment: 0 Location: Knee Pain/Comfort Presence Of Pain: denies pain/discomfort Today's Treatment Patient Name: Andrea Suh/: 1990/ Start Time: 0725 Stop time: 0810 Duration: 45 minutes Timed Treatment Codes: 45 minutes # of PT Visits to Date: 4 Visit Summary: S:My knees feel great only some popping in the knee cap every once in awhile . A:pt tolerated Tx well today, was able to progressing HEP adding more BW exerciese. Next Visit Information: DC and Review HEP. Patient/Caregiver Education Learner: Patient Readiness: Acceptance Method: Explanation, Demonstration, Handout Response: Verbalizes Understanding, Demonstrated Understanding Therapy Interventions HEP: HEP: SLR in supine, sidelying, prone; sidelying clams; sitting HS curl with blue thera band; SLS. Seated marching 1minx2. LAQ Ongoing: Wall sits [id number] holds, Bridging 3 x 10 reps, Side steps GTB at ankles 3 x 30. PT INTERVENTION 1: TE (45 mins): recumbent bike 70 thomas, 10 mins; SLR in supine, sidelyin g, prone 10x each; sidelying clams 10x each side, Seated marching alt 2 mins. LAQ 2 mins. He el and toe raises 30reps each. Assessment Rehabilitation potential: Patient demonstrates good potential to achieve established goals to address the documented impairments by participating in skilled physical therapy services. Goals: Patient Reported Outcome Goals Patient Specific Functional Scale Goal 1: Hiking on even and uneven surfaces Patient Specific Functional Scale Goal 1 Status: 4 Patient Specific Functional Scale Goal 1 Status Comment: Ongoing- Pt limited by ankle and k nee- reports 50% normal ankle OP PT Goals Goal 1: Patient will demonstrate I with advanced HEP and no pain in order to improve functi onal outcomes with physical therapy. Goal 1 Status: Part. met pt compliant with current HEP. Goal 2: Patient will improve B hip strength to 4+/5 or greater Goal 2 Status: ongoing Goal 3: Patient will tolerate walking for 1 mile without taking breaks due to pain to retur n to previous level of activity. Electronically signed by: Julia Fisher PT, 01/16/2019 13:13 Patient Name: Andrea Suh/: 1990/ documented in this encounter Plan of Treatment +--------+ + + + + | Date | Type | Specialty | Care Team | Description | +--------+ + + + + | 02/18/ | Appointment | Rehabilitation | Erika Ernst, | | | 2019 | | | DO [address] | | | | | | [place] [address] | | | | | | [phone] | | | | | | | | | | | | Julia Fisher, | | | | | | PT | | +--------+ + + + + | 02/18/ | Appointment | Rehabilitation | Erika Ernst, | | | 2019 | | | DO [address] | | | | | | [place] [address] | | | | | | [phone] | | | | | | | | | | | | Genesis Ayon OT | | +--------+ + + + + | 02/25/ | Office | Primary Care | Erika Ernst, | | | 2019 | Visit | | DO [address] | | | | | | [place] [address] | | | | | | [phone] | | | | | | | [...] | | | | | [place] [address] | | | | | | [phone] | | | | | | | | +--------+ + + + + | 02/27/ | Appointment | Radiology | Dhara, | | | 2019 | | | DWAINE Ross [address] | | | | | | [address] [facility], | | | | | | [place] [address] | | | | | | [phone] | | | | | | | | +--------+ + + + + | 03/04/ | Appointment | Rehabilitation | Genesis Ayon OT | | | 2019 | | | | | +--------+ + + + + | 03/09/ | Office | Orthopedic Surgery | Jeffrey Gandhi, | | | 2019 | Visit | | [address] | | | | | | [place] [address] | | | | | | [phone] | | | | | | | [...] [place] | | | | | | [address] | | | | | | [phone] | | | | | | | [...] | | | | | [place] [address] | | | | | | [phone] | | | | | | | | | | | | Azul Yeboah, | | | | | | MD [address] | | | | | | [place] | | | | | | [place] [address] | | | | | | [phone] | | | | | | | | +--------+ + + + + | 04/08/ | Appointment | Nutrition | Janel Webster | | | 2019 | | | [place], [place] | | +--------+ + + + + | 05/21/ | Office | Neurology | Dhara, | | | 2019 | Visit | | [address] | | | | | | [address] [facility] [place], | | | | | | [place] [address] | | | | | | [phone] | | | | | | | | +--------+ + + + + documented as of this encounter Visit Diagnoses + + | Diagnosis | + + | Acute pain of right knee - Primary | + + | Sprain of calcaneofibular ligament of left ankle, subsequent encounter | + + | History of falling Personal history of fall | + + | Class 3 severe obesity due to excess calories without serious comorbidity with body | | mass index (BMI) of 50.0 to 59.9 in adult (HCC) | + + documented in this encounter"
--- OUTSIDE RECORDS SUMMARY | ~2020-02-18 | XMS | Encounter Summary ---
Demographics + + + | Address | [address] | | | [place] [address] | + + + | Home Phone [...] Team Providers + +------+ + | Care Human Machine Interface Engineer Name | Role | Phone | + +------+ + PCP | Unavailable | + +------+ + Encounter Details +--------+ + + + + | Date | Type | Department | Care Team | Description | +--------+ + + + + | 03/23/ | [facility] | [facility] | Erika Ernst, | | | 2016 | Encounter | [facility] | DO [address] | | | | | [facility] [address] | [place] [address] | | | | | [address] [place], | [phone] | | | | | [place] [address] | | | | | | [phone] | | | +--------+ + + + [...] | | 2019 | | | DO [facility] | | | | | | [place], [place] [address] | | | | | | [phone] | | | | | | | | | | | | Julia Fisher, | | | | | | PT | | +--------+ + + + + | 02/18/ | Appointment | Rehabilitation | Erika Ernst, | | | 2019 | | | DO [address] | | | | | | [place] [address] | | | | | | [phone] | | | | | | | | | | | | Genesis Ayon, SUSAN | | +--------+ + + + + | 02/25/ | Office | Primary Care | Erika Ernst, | | | 2019 | Visit | | DO [address] | | | | | | [place] [address] | | | | | | [phone] | | | | | | | [...] | | | | | [place] [address] | | | | | | [phone] | | | | | | | | +--------+ + + + + | 02/27/ | Appointment | Radiology | Dhara, | | 2019 | | | DWAINE [address] | | | | | | [address] [facility] [place], | | | | | | [place] [address] | | | | | | [phone] | | | | | | | [...] | | | | | [place] [address] | | | | | | [phone] | | | | | | | [...] [place] | | | | | | [address] | | | | | | [phone] | | | | | | | | +--------+ + + + + | 03/25/ | Appointment | Rehabilitation | Genseis Ayon OT | | | 2019 | | | | | +--------+ + + + + | 04/08/ | Office | Neurology | Erika Ernst, | | | 2019 | Visit | | DO [address] | | | | | | [place] [address] | | | | | | [phone] | | | | | | | | | | | | Azul Yeboah, | | | | | | MD [address] | | | | | | [place] | | | | | | [place] [address] | | | | | | [phone] | | | | | | | [...] | | | | | | [place] [address] | | | | | | [phone] | | | | | | | | +--------+ + + + + documented as of this encounter Visit Diagnoses Not on filedocumented in this encounter"
--- OUTSIDE RECORDS SUMMARY | ~2020-02-18 | XMS | Encounter Summary ---
Demographics + + + | Address | [address] | | | [place] [address] | + + + | Home Phone [...] Team Providers + +------+ + | Care Onion Tier Name | Role | Phone | + [...] | | | PT TREAT | [place] [address] | [place] [address] | | | | | | Phone: | Phone: | | | | | | [phone] | [phone] | | | | | | Fax: | Fax: | | | | | | [phone] | [phone] | +--------+--------+ + + + + Encounter Details +--------+ + + + + | Date | Type | Department | Care Team | Description | +--------+ + + + + | 01/09/ | Hospital | [place] [facility] | Erika Ernst, | Acute pain of right | | 2019 | Encounter | HOSPITAL THERAPY PT | DO [address] | knee (Primary Dx) | | | | [address] [place] | [place] [address] | | | | | [place], [place] | [phone] | | | | | [address] | | | | | | [phone] | Celia Washington, PT | | +--------+ + + + [...] | 11/26/19 | | | (VITAMIN D3) 22965 | mouth Once a week | tablet [...] documented as of this encounter Progress Notes Celia Washington, PT - 01/09/2019 2:50 PM PDTFormatting of this note might be different fr om the original. [facility] THERAPY PT [address] [place] [address] Physical Therapy Daily Treatment Note Date: 01/09/2019 Patient Information Patient Name: Andrea Suh Date of : 1990 Age: 28 y.o. Encounter Diagnoses Code Name Primary? M25.561 Acute pain of right knee Yes Date of Onset: 10/15/2018 Referring Provider: DO Efren Graves Today's Treatment Patient Name: Andrea Suh/: 1990/ Start Time: 1300 Stop time: 1345 Duration: 45 minutes Timed Treatment Codes: 45 minutes # of PT Visits to Date: 2 Visit Summary: S: The right knee pops at times. A: Tolerated HEP well. Able to do all exs , but SLR are a challenge due to the hip weakness and weight of the pt's legs. Recommended she join a gym to use a stationary bike. Her employer offers discounted gym memberships. Next Visit Information: Review HEP. Progress Hip/quad/HS loading for home program. Patient/Caregiver Education Learner: Patient Readiness: Acceptance Method: Explanation, Demonstration, Handout Response: Verbalizes Understanding, Demonstrated Understanding Comment: Physical therapy HEP, given blue theraband Therapy Interventions HEP: HEP: New: SLR in supine, sidelying, prone; sidelying clams; sitting HS curl with blue theraband; SLS. Ongoing: Wall sits [id number] holds, Bridging 3 x 10 reps, Side steps GTB a t ankles 3 x 30. PT INTERVENTION 1: TE (45 mins): recumbent bike 70 thomas, 10 mins; SLR in supine, sidelyin g, prone 10x each; sidelying clams 10x each side; sitting HS curl with blue theraband 10x ea ch Assessment Rehabilitation potential: Patient demonstrates good potential to achieve established goals to address the documented impairments by participating in skilled physical therapy services. Goals: Patient Reported Outcome Goals Patient Specific Functional Scale Goal 1: Hiking on even and uneven surfaces OP PT Goals Goal 1: Patient will demonstrate I with advanced HEP and no pain in order to improve functi onal outcomes with physical therapy. Goal 1 Status: Given HEP for hip and hamstring strengthening Goal 2: Patient will improve B hip strength to 4+/5 or greater Electronically signed by: Celia Washington PT, 01/09/2019 14:50 Patient Name: Andrea Suh/: 1990/ documented in this e ncounter Plan of Treatment +--------+ + + + + | Date | Type | Specialty | Care Team | Description | +--------+ + + + + | 02/18/ | Appointment | Rehabilitation | Erika Ernst, | | | 2019 | | | DO [address] | | | | | | [place] [address] | | | | | | [phone] | | | | | | | | | | | | Julia Fisher, | | | | | | PT | | +--------+ + + + + | 02/18/ | Appointment | Rehabilitation | Erika Ernst, | | | 2019 | | | DO [address] | | | | | | [place] [address] | | | | | | [phone] | | | | | | | | | | | | Genesis Ayon OT | | +--------+ + + + + | 02/25/ | Office | Primary Care | Erika Ernst, | | | 2019 | Visit | | DO [address] | | | | | | [place] [address] | | | | | | [phone] | | | | | | | [...] | | | | | [place] [address] | | | | | | [phone] | | | | | | | | +--------+ + + + + | 02/27/ | Appointment | Radiology | Dhara, | | | 2019 | | | [address]WAINE [address] | | | | | | [address] [facility], | | | | | | [place] [address] | | | | | | [phone] | | | | | | | [...] [place] | | | | | | [place] [address] | | | | | | [phone] | | | | | | | [...] [place] | | | | | | [address] | | | | | | [phone] | | | | | | | [...] | | | | | [place] [address] | | | | | | [phone] | | | | | | | | | | | | Azul Yeboah, | | | | | | MD [address] | | | | | | [place] | | | | | | [place] [address] | | | | | | [phone] | | | | | | | [...] | | | | | | [place] [address] | | | | | | [phone] | | | | | | | | +--------+ + + + + documented as of this encounter Visit Diagnoses + + | Diagnosis | + + | Acute pain of right knee - Primary | + + documented in this encounter"
--- OUTSIDE RECORDS SUMMARY | ~2020-02-18 | XMS | Encounter Summary ---
Demographics + + + | Address | [address] | | | [place] [address] | + + + | Home Phone [...] Organization | [facility] | | | [...] Team Providers + +------+ + | Care Customer Counter Associate Name | Role | Phone [...] | [facility] [address] | [place] [address] | (Primary Dx); | | | | [address] [place], | [phone] | Vitamin D deficiency | | | | [place] [address] | | | | | | [phone] | | | +--------+---------+ + + + [...] PM 90 tablet 5 Cholecalciferol (VITAMIN D3) 60364 units TABS Take 1 tablet by mouth [...] | 2019 | | | DO [address] | | | | | | [facility] [place] [address] | | | | | | [phone] | | | | | | | | | | | | Julia Fisher, | | | | | | PT | | +--------+ + + + + | 05/20/ | Appointment | Rehabilitation | Erika Ernst, | | | 2019 | | | DO [address] | | | | | | [place] [address] | | | | | | [phone] | | | | | | | | | | | | Genesis Ayon OT | | +--------+ + + + + | 02/25/ | Office | Primary Care | Erika Ernst, | | | 2019 | Visit | | DO [address] | | | | | | [place] [address] | | | | | | [phone] | | | | | | | [...] | | | | | [place] [address] | | | | | | [phone] | | | | | | | | +--------+ + + + + | 02/27/ | Appointment | Radiology | Dhara, | | | 2019 | | | DWAINE [address] | | | | | | [address] [facility] [place], | | | | | | [place] [address] | | | | | | [phone] | | | | | | | [...] | | | | | [place] [address] | | | | | | [phone] | | | | | | | [...] [place] | | | | | | [address] | | | | | | [phone] | | | | | | | [...] | | | | | [place] [address] | | | | | | [phone] | | | | | | | | | | | | Azul Yeboah, | | | | | | MD [address] | | | | | | [place] | | | | | | [place] [address] | | | | | | [phone] | | | | | | | [...] | | | | | | [place] [address] | | | | | | [phone] | | | | | | | [...] + + | [facility] [facility] | [address] | [place] | [phone] | | [facility] | | [address] | | + + + + + [...] + + | [place] [facility] | [address] | [place] | [phone] | | [facility] | | [address] | | + + + + + documented in this encounter Visit Diagnoses + + | Diagnosis | + + | Acquired hypothyroidism - Primary Unspecified hypothyroidism | + + | Vitamin D deficiency Unspecified vitamin D deficiency | + + documented in this encounter
--- OUTSIDE RECORDS SUMMARY | ~2020-02-18 | XMS | Encounter Summary ---
Demographics + + + | Address | [address] | | | [place] [address] | + + + | Home Phone [...] Providers + +------+ + | Care Wood Products Manufacturer Name | Role | Phone | + [...] | | | of left | [place] [address] | [place] [address] | | | | | ankle, | Phone: | Phone: | | | | | initial | [phone] | [phone] | | | | | encounter | Fax: | Fax: | | | | | Procedures | [phone] | [phone] | | | | | PT TREAT | | | +--------+--------+ + + + + Encounter Details +--------+ + + + + | Date | Type | Department | Care Team | Description | +--------+ + + + + | 10/04/ | Hospital | [place] [facility] | Erika Ernst, | Sprain of left | | 2018 | Encounter | HOSPITAL THERAPY PT | DO [address] | ankle, subsequent | | | | [address] [place] | [place] [address] | encounter (Primary | | | | [place], [place] | [phone] | Dx); Fall on same | | | | [address] | | level from slipping, | | | | [phone] | Danial Tuttle | subsequent | | | | | K, PT | encounter | +--------+ + + + [...] tablet by | 20 | 0 | 09/27/20 | | | amoxicillin-clavulan | mouth 2 times daily | tablet | | 18 | 9 | | ate (AUGMENTIN) | [...] documented as of this encounter Progress Notes Danial Tuttle, PT - 10/04/2018 2:38 PM PSTFormatting of this note might be differen t from the original. [facility] THERAPY PT [address] [place] [address] Physical Therapy Daily Treatment Note Date: 10/04/2018 Patient Information Patient Name: Andrea Suh Date of : 1990 Age: 28 y.o. Encounter Diagnoses Code Name Primary? S93.402D Sprain of left ankle, subsequent encounter Yes W01.0XXD Fall on same level from slipping, subsequent encounter Date of Onset: 06/11/2018 Referring Provider: Erika Ernst DO Objective Pain Assessment: Pain Rating Pre Assessment: 3 Pain Rating Post Assessment: 3 Location: rating is approx, L med ankle Today's Treatment Patient Name: Andrea Suh/: 1990/ Start Time: 1130 Stop time: 1200 Duration: 30 minutes Timed Treatment Codes: 30 minutes # of PT Visits to Date: 16 Visit Summary: S: I am feeling ok, no more pain on the outside of my ankle, all on the ins serena now. I think I am done with the pool next week, I have been doing some of the exercises on my own in the other pool when I go to [place]. A: We will do 1-2 more visits to en sure proper execution of her program & will DC the pool portion to her own indep program. Sh e is cont with clinic based program per primary PT descretion. Her control of LE/ankle is f air to good in water, she does have less control during single limb stance than her R side b ut she is able to complete exercises with understanding of exercise & ability to identify sa lient points of each thus indicating indep status is near. Next Visit Information: Progress LE strength and balance exercises with steps, bosu, bridge progression, quantum, leg press, lunges. Progress aquatic exercise as tolerated. Patient/Caregiver Education Learner: Patient Readiness: Acceptance Method: Explanation, Demonstration Response: Verbalizes Understanding, Demonstrated Understanding, Needs Reinforcement Comment: aquatic exercise Aquatic Basic Exercise Program Walkin minutes Depth: chest Type of Walking: forward, backward, side step, heel-toe Assistance: verbal cues Stretches: calf Aerobics Aerobic Exercise: LE Exercise LE Exercise - Level of Assistance: light touch at rail LE Exercise Comments: ankle PF/DF, heel raises, toe raises, single leg stance, single leg s quat, hip flex/ext single leg stance w/UE waves, walking on inverted & everted foot Assessment Rehabilitation potential: Patient demonstrates good potential to achieve established goals to address the documented impairments by participating in skilled physical therapy services. Electronically signed by: Danial Tuttle PT, 10/04/2018 14:38 Patient Name: Andrea Henaonanci/: 1990/ documented in th is encounter Plan of Treatment +--------+ + + + + | Date | Type | Specialty | Care Team | Description | +--------+ + + + + | 02/18/ | Appointment | Rehabilitation | Erika Ernst, | | | 2019 | | | DO [address] | | | | | | [place] [address] | | | | | | [phone] | | | | | | | | | | | | Julia Fisher, | | | | | | PT | | +--------+ + + + + | 02/18/ | Appointment | Rehabilitation | Erika Ernst, | | | 2019 | | | DO [address] [place] | | | | | | [place] [address] | | | | | | [phone] | | | | | | | | | | | | Genesis Ayon OT | | +--------+ + + + + | 02/25/ | Office | Primary Care | Erika Ernst, | | | 2019 | Visit | | DO [address] | | | | | | [place] [address] | | | | | | [phone] | | | | | | | [...] | | | | | [place] [address] | | | | | | [phone] | | | | | | | | +--------+ + + + + | 02/27/ | Appointment | Radiology | Dhara, | | | 2019 | | | [address]WAINE [address] | | | | | | [address] [place], | | | | | | [place] [address] | | | | | | [phone] | | | | | | | [...] | | | | | [place] [address] | | | | | | [phone] | | | | | | | [...] [place] | | | | | | [address] | | | | | | [phone] | | | | | | | [...] | | | | | [place] [address] | | | | | | [phone] | | | | | | | | | | | | Azul Yeboah, | | | | | | MD [address] | | | | | | [place] | | | | | | [place] [address] | | | | | | [phone] | | | | | | | [...] | | | | | | [place] [address] | | | | | | [phone] | | | | | | | | +--------+ + + + + documented as of this encounter Visit Diagnoses + + | Diagnosis | + + | Sprain of left ankle, subsequent encounter - Primary | + + | Fall on same level from slipping, subsequent encounter | + + documented in this encounter"
--- OUTSIDE RECORDS SUMMARY | ~2020-02-18 | XMS | Encounter Summary ---
Demographics + + + | Address | [address] | | | [place] [address] | + + + | Home Phone [...] Team Providers + +------+ + | Care Netezza Developer Name | Role | Phone | [...] + + | Authorized | Specialty | Podiatry | Diagnoses | Klever, | ST | | | Services | | Sprain of | Erika Salter DO | [facility]ONS[facility] | | | Required | | deltoid | [address] | [facility] | | | | | ligament of | [place], | FOOT & ANKLE | | | | | right ankle, | [place] [address] | [facility] | | | | | subsequent | Phone: | [facility] [address] | | | | | encounter | [phone] | [address] | | | | | | Fax: | [address] | | | | | | [phone] | [place], [place] | | | | | | | [address] | | | | | | | Phone: | | | | | | | [phone] | | | | | | | Fax: | | | | | | | [phone] | + + + + + + + Encounter Details +--------+ + + + + | Date | Type | Department | Care Team | Description | +--------+ + + + + | 02/11/ | Orders Only | [facility] [facility] | Klever, Erika A, | Sprain of deltoid | | 2019 | | [facility] | DO [address] | ligament of right | | | | [facility] | [place] [address] | ankle, subsequent | | | | [address] [place], | [phone] | encounter (Primary | | | | [place] [address] | | Dx) | | | | [phone] | | | +--------+ + + + [...] | | | | | [place] [address] | | | | | | [phone] | | | | | | | | | | | | Julia Fisher, | | | | | | PT | | +--------+ + + + + | 02/18/ | Appointment | Rehabilitation | Erika Ernst, | | | 2019 | | | DO [address] [place] | | | | | | [place] [address] | | | | | | [phone] | | | | | | | | | | | | Genesis Ayon OT | | +--------+ + + + + | 02/25/ | Office | Primary Care | Erika Ernst, | | | 2019 | Visit | | DO [address] | | | | | | [place] [address] | | | | | | [phone] | | | | | | | [...] | | | | | [place] [address] | | | | | | [phone] | | | | | | | | +--------+ + + + + | 02/27/ | Appointment | Radiology | Dhara, | | | 2019 | | | DWAINE Ross [address] | | | | | | [address] [facility] [place], | | | | | | [place] [address] | | | | | | [phone] | | | | | | | [...] | | | | | [place] [address] | | | | | | [phone] | | | | | | | [...] [place] | | | | | | [address] | | | | | | [phone] | | | | | | | [...] | | | | | [place] [address] | | | | | | [phone] | | | | | | | | | | | | Azul Yeboah, | | | | | | MD [address] | | | | | | [place] | | | | | | [place] [address] | | | | | | [phone] | | | | | | | [...] | | | | | | [place] [address] | | | | | | [phone] | | | | | | | | +--------+ + + + + + + +--------+ + + | Name | Type | Priori | Associated Diagnoses | Order Schedule | | | | ty | | | + + +--------+ + + | Podiatry, External - | Outpatient | Routin | Sprain of deltoid | Ordered: 02/12/2020 | | AMB Referral | Referral | e | ligament of right | | | | | | ankle, subsequent | | | | | | encounter | | + + +--------+ + + documented as of this encounter Visit Diagnoses + + | Diagnosis | + + | Sprain of deltoid ligament of right ankle, subsequent encounter - Primary | + + documented in this encounter"
--- OUTSIDE RECORDS SUMMARY | ~2020-02-18 | XMS | Encounter Summary ---
Demographics + + + | Address | [address] | | | [place] [address] | + + + | Home Phone [...] Team Providers + +------+ + | Care Multineedle Shirrer Name | Role | Phone | + +------+ + | Erika Ernst DO | PCP | | + +------+ + Reason for Visit + + + | Reason | Comments | + + + | Concussion | | + + + Encounter Details +--------+---------+ + + + | Date | Type | Department | Care Team | Description | +--------+---------+ + + + | 01/05/ | Office | [facility] [facility] | RomaCamila, | Concussion without | | 2020 | Visit | [facility] | Jujoanna, [address] | loss of | | | | [facility] [address] | [address] | consciousness, | | | | [address] [place], | [place] [address] | initial encounter | | | | [place] [address] | [phone] | (Primary Dx); Nausea | | | | [phone] | | | +--------+---------+ + + + [...] + + + | Blood Pressure | 137/83 | 01/06/2020 5:43 PM | | | | | PDT | | + + + + + | Pulse | 85 | 01/06/2020 5:43 PM | | | | | PDT | | + + + + + | Temperature | 37.3 C (99.1 F) | 01/06/2020 5:43 PM | | | | | PDT | | + + + + + | Respiratory Rate | 16 | 01/06/2020 5:43 PM | | | | | PDT | | + + + + + | Oxygen Saturation | 96% | 01/06/2020 5:43 PM | | | | | PDT [...] in this encounter Patient Instructions Patient Instructions Salinas Gabriel, POSTER - 01/06/2020 4:30 PM PDT Coping with Concussion Concussion is also known as mild traumatic brain injury (MTBI). It isoften caused by ab low to the head, or a fall. You may have been unconscious for a few seconds or minutes after the injury. Or maybe you were dazed, confused, or saw stars. After this, you thought you were OK. Now, weeks or months later, you re having symptoms that may be caused by a co ncussion. The good news is that, in most people, these symptoms will likely go away on the ir own. Most people with a concussion recover fully, with no need for treatment. A cold compress can help relieve a headache. What is a concussion? A concussion is a mild form of brain injury. In some cases, the effects of a concussion go away within days of the injury. In others, symptoms may continue for a few months. Fortunate ly, a concussion is temporary. Even when symptoms stay for months, they do go away over time . If they don't, or if your symptoms are worse, contact your healthcare provider. Symptoms of a concussion You may have noticed some of these symptoms: Headaches Irritability and other changes in behavior Problems remembering or concentrating Dizziness or lack of coordination Fatigue Problems sleeping Sensitivity to light and sound Vision changes NOTE: If you have severe symptoms or trouble functioning, talk with your healthcare provide r right away. If you had a more serious head injury than a concussion, you likely need treat ment. Be sure to see your healthcare provider for an evaluation. What you can do Since the effects of a concussion go away over time, there isn t a lot you need to do. Be assured that this problem is temporary. You ll likely have a full recovery. In the meanti me, talk with your healthcare provider about ways to relieve any symptoms that are bothering you. These tips may help: Don't return to sports or any activity that could cause you to hit your head until all s ymptoms are gone and you have been cleared by your doctor. A second head injury before fully recovering from the first one can lead to serious brain injury. Return to normal activities of daily living and normal social interaction is encouraged to speed recovery. Stress can make symptoms worse. Help calm yourself by resting in a quiet place and imagi zahra a peaceful scene. Relax your muscles by soaking in a hot bath or taking a hot shower. Take zmto-ycp-ddwcuzd acetaminophen to relieve headache pain. Take them as directed on the package. Don't take ibuprofen or aspirin after a head injury. If you become dizzy, sit or lie down in a safe place until the sensation passes. Don t drive when you feel dizzy or disoriented. If you re having trouble sleeping, try to keep a regular sleep schedule. Go to bed and get up at the same time each day. Avoid or limit caffeine and nicotine. Also don't drink al cohol. It may help you sleep at first, but your sleep will not be restful. Give yourself time to heal. Your recovery will take some time. When you have symptoms, r emember that you won t feel this way forever. In time the symptoms will go away and you ll be back to yourself. If you re not feeling better The effects of a concussion often go away in 7 to 10 days and the vast majority of people w ho have had a concussion have recovered after 3 months. If you re not feeling better as ti me passes, there may be something else going on. If your symptoms don t go away or you not ice new ones, talk with your healthcare provider. He or she can help you get the treatment y ou need. Date Last Reviewed: 10/02/201719992002-[address] [employer] [place] [address], [place] [address]. All [facility] ts reserved. This information is not intended as a substitute for professional medical care. Always follow your healthcare professional's instructions. Head Injury (Adult) You have a head injury. It does not appear serious at this time. But symptoms of a more ser ious problem, such as a mild brain injury (concussion) or bruising or bleeding in the brain, may appear later. For this reason, you or someone caring for you will need to watch for the symptoms listed below. Once you re home, also be sure to follow any care instructions you re given. Home care Watchfor the following symptoms Seek emergency medical care if you have any of these symptoms over the next hours to days: Headache Nausea or vomiting Dizziness Sensitivity to light or noise Unusual sleepiness or grogginess Trouble falling asleep Personality changes Vision changes Memory loss Confusion Trouble walking or clumsiness Loss of consciousness (even for a short time) Inability to be awakened Stiff neck Weakness or numbness in any part of the body Seizures General care If you were prescribed medicines for pain, use them as directed. Note: Don t take othe r medicines for pain without talking to your provider first. To help reduce swelling and pain, apply a cold source to the injured area for up to 20 m inutes at a time. Do this as oftenas directed. Use a cold pack or bag of ice wrapped in a thin towel. Never apply a cold source directly to the skin. If you have cuts or scrapes as a result of your head injury, care for them as directed. For the next 24 hours(or longer, if instructed): ? Don t drink alcohol or use sedatives or other medicines that make you sleepy. ? Don t drive or operate machinery. ? Don t do anything strenuous, such as heavy lifting or straining. ? Limit tasks that require concentration. This includes reading, using a smartphone or comp uter, watching TV, and playing video games. ? Don t return to sports or other activities that could result in another head injury. Follow-up care Follow up with your healthcare provider, or as directed.If imaging tests were done, they will be reviewed by a doctor. You will be told the results and any new findings that may aff ect your care. When to seek medical advice Call your healthcare provider right away if any of these occur: Pain doesn t get better or worsens New or increased swelling or bruising Fever of 100.4F (38C) or higher, or as directed by your provider Increased redness,warmth,drainage, or bleeding from the injured area Fluid drainage or bleeding from the nose or ears Any depression or bony abnormality in the injured area Persistent confusion or lethargy Bruising behind the ears or bruising around the eyes Date Last Reviewed: 12/31/201719992383-9678 [employer]. [address] [place] [address]. All righ ts reserved. This information is not intended as a substitute for professional medical care. Always follow your healthcare professional's instructions. documented in this encounter Progress Notes Salinas Gabriel, DWAINE - 01/06/2020 4:30 PM PDTFormatting of this note might be differe nt from the original. Chief Complaint Patient presents with Concussion Assessment 1. Concussion without loss of consciousness, initial encounter 2. Nausea - ondansetron (ZOFRAN ODT) 4 mg disintegrating tablet; Take 1 tablet by mouth every 8 hours as needed for Nausea. Dispense: 10 tablet; Refill: 0 Plan Refill on Zofran Patient to continue resting and using Tylenol for headache Letter given to reduce screen time while at work Keep appointment with neurology Subjective: Patient ID: Andrea Suh is a 29 y.o. female who is new to me, here for follow-up vis it on her ER visit of 12/25. Patient reported that she had a cabinet door fall and landed on her left eyebrow. She was diagnosed with a concussion without loss of consciousness. Toda y patient is reporting that she is still having headaches, she is not able to sleep, has anx iety so she walks at night to help to reduce the anxious energy. Patient reports that this is her third concussion. She is seeing neurology for treatment and she has an appointment i n January for a follow-up. She stated that Dr. Nichole, neurologist, diagnosed her with postconcuss junior syndrome. Patient stated that she is working from home and needs to be on a computer al l the time. Discussed her having reduced screen time to help with her headaches. She state d that initially she had gotten a letter for her employer to accommodate that. Objective: BP 137/83 | Pulse 85 | Temp 37.3 C (99.1 F) (Oral) | Resp 16 | SpO2 96% Social History Socioeconomic History Marital status: Single Spouse name: Not on file Number of children: Not on file Years of education: Not on file Highest education level: Not on file Occupational History Not on file Social Needs Financial resource strain: Not on file Food insecurity: Worry: Not on file Inability: Not on file Transportation needs: Medical: Not on file Non-medical: Not on file Tobacco Use Smoking status: Never Smoker Smokeless tobacco: Never Used Substance and Sexual Activity Alcohol use: No Alcohol/week: 0.0 standard drinks Frequency: Never Binge frequency: Never Drug use: No Sexual activity: Yes Partners: Male control/protection: Condom Lifestyle Physical activity: Days per week: Not on file Minutes per session: Not on file Stress: Not on file Relationships Social connections: Talks on phone: Not on file Gets together: Not on file Attends yazidi service: Not on file Active member of club or organization: Not on file Attends meetings of clubs or organizations: Not on file Relationship status: Not on file Intimate partner violence: Fear of current or ex partner: Not on file Emotionally abused: Not on file Physically abused: Not on file Forced sexual activity: Not on file Other Topics Concern Not on file Social History Narrative Not on file Past Medical History: Diagnosis Date Allergic rhinitis Anemia Asthma Dysmenorrhea Hypertension Hypothyroid Iron deficiency Obesity ALVRAEZ (obstructive sleep apnea) Periodontal disease, unspecified TMJ pain dysfunction syndrome Allergies Allergen Reactions Latex Rash Lexapro [Escitalopram] Palpitations Ciprofloxacin Nausea Only Deblitane [Norethindrone] Hydrocodone Hives Milk Unknown Nickel Dermatitis, Itching and Swelling Uncoded Nonscreenable Allergen Other (See Comments) Other reaction(s): Proclivity to C-diff with certain antibiotics Adhesive & Tape Rash Greater than 50% of this 30 min visit was spent discussing concussion and management at [facility] to help with the healing process Electronically signed by DWAINE Orozco 01/06/2020 17:47 Note: Part of this report was transcribed using voice recognition software. Every effort wa s made to ensure accuracy. However, inadvertent computerized rf test technician errors may be pre sent documented i n this encounter Plan of Treatment +--------+ + + + + | Date | Type | Specialty | Care Team | Description | +--------+ + + + + | 02/18/ | Appointment | Rehabilitation | Erika Ernst, | | 2019 | | | DO [facility] [place] | | | | | | [place] [address] | | | | | | [phone] | | | | | | | | | | | | Julia Fisher, | | | | | | PT | | +--------+ + + + + | 02/18/ | Appointment | Rehabilitation | Erika Ernst, | | | 2019 | | | DO [address] | | | | | | [place] [address] | | | | | | [phone] | | | | | | | | | | | | Genesis Ayon OT | | +--------+ + + + + | 02/25/ | Office | Primary Care | Erika Ernst, | | | 2019 | Visit | | DO [address] | | | | | | [place] [address] | | | | | | [phone] | | | | | | | [...] | | | | | [place] [address] | | | | | | [phone] | | | | | | | | +--------+ + + + + | 02/27/ | Appointment | Radiology | Dhara, | | | 2019 | | | DWAINE Rsos [address] | | | | | | [address] [place], | | | | | | [place] [address] | | | | | | [phone] | | | | | | | [...] | | | | | | [place] [address] | | | | | | [phone] | | | | | | | [...] [place] | | | | | | [address] | | | | | | [phone] | | | | | | | [...] | | | | | [place] [address] | | | | | | [phone] | | | | | | | | | | | | Azul Yeboah, | | | | | | MD [address] | | | | | | [place] | | | | | | [place] [address] | | | | | | [phone] | | | | | | | [...] | | | | | | [place] [address] | | | | | | [phone] | | | | | | | | +--------+ + + + + documented as of this encounter Visit Diagnoses + + | Diagnosis | + + | Concussion without loss of consciousness, initial encounter - Primary | + + | Nausea Nausea alone | + + documented in this encounter"
--- OUTSIDE RECORDS SUMMARY | ~2020-02-18 | XMS | Encounter Summary ---
Demographics + + + | Address | [address] | | | [place] [address] | + + + | Home Phone [...] Team Providers + +------+ + | Care Salesperson New Cars Name | Role | Phone | + +------+ + PCP | Unavailable | + +------+ + Encounter Details +--------+ + + + + | Date | Type | Department | Care Team | Description | +--------+ + + + + | 04/12/ | Hospital | [place] [facility] | Jenise Benitez, | | | 2016 | Encounter | [facility] | MEDICAL PRACTICE ASSISTANT [address] | | | | | [place] | [place] [address] | | | | | [place], [place] | [phone] | | | | | [address] | | | | | | [phone] | | | +--------+ + + + [...] 2019 | | | DO [facility] | | | | | | [place], [place] [address] | | | | | | [phone] | | | | | | | | | | | | Juila Fisher, | | | | | | PT | | +--------+ + + + + | 02/18/ | Appointment | Rehabilitation | Erika Ernst, | | | 2019 | | | DO [address] [place] | | | | | | [place] [address] | | | | | | [phone] | | | | | | | | | | | | Genesis Ayon, SUSAN | | +--------+ + + + + | 02/25/ | Office | Primary Care | Erika Ernst, | | | 2019 | Visit | | DO [address] [place] | | | | | | [place] [address] | | | | | | [phone] | | | | | | | [...] | | | | | [place] [address] | | | | | | [phone] | | | | | | | | +--------+ + + + + | 02/27/ | Appointment | Radiology | Dhara, | | 2019 | | | DWAINE Ross [address] | | | | | | [address] [facility] [place], | | | | | | [place] [address] | | | | | | [phone] | | | | | | | [...] | | | | | [place] [address] | | | | | | [phone] | | | | | | | [...] [place] | | | | | | [address] | | | | | | [phone] | | | | | | | [...] | | | | | [place] [address] | | | | | | [phone] | | | | | | | | | | | | Azul Yeboah, | | | | | | MD [address] | | | | | | [place] | | | | | | [place] [address] | | | | | | [phone] | | | | | | | [...] | | | | | | [place] [address] | | | | | | [phone] | | | | | | | [...] cardiopulmonary process. Job | | | No.: [id number] Read By: DAYANA COON MD Released By: | | | DAYANA COON MD Date: 04/12/2016 18:28 | | + [...] acute cardiopulmonary process. | | Job No.: [id number] Read By: DAYANA COON MD Released By: DAYANA Lr. | | CECILY COONate: 04/12/2016 18:28 | |Cough and fatigue. | | | |COMPARISON STUDY: | |February 18, 2015. | | | |FINDINGS: | |Lungs are well ventilated. There is no pleural effusion. No pneumothorax. No focal lung par enchymal opacity. No acute bone process. | | | |IMPRESSION: | |No evidence of acute cardiopulmonary process. | | | | | |Job No.: [id number] | | | |Read By: DAYANA COON MD | | | |Released By: DAYANA COON MD | |Date: 04/12/2016 18:28 | | | | | + + documented in this encounter Visit Diagnoses Not on filedocumented in this encounter"
--- OUTSIDE RECORDS SUMMARY | ~2020-02-18 | XMS | Encounter Summary ---
Demographics + + + | Address | [address] | | | [place] [address] | + + + | Home Phone [...] Team Providers + +------+ + | Care It Trainee Name | Role | Phone | + [...] 09/06/ | Telephone | [place] [facility] | Erika Ernst, | Blood Pressure (low) | | 2019 | | [facility] | DO [address] | | | | | MEDICAL CL[facility] [address] | [facility] [place] [address] | | | | | [address] [place], | [phone] | | | | | [place] [address] | | | | | | [phone] | | | +--------+ + + + [...] | | | | | [place] [address] | | | | | | [phone] | | | | | | | | | | | | Julia Fisher, | | | | | | PT | | +--------+ + + + + | 02/18/ | Appointment | Rehabilitation | Erika Ernst, | | | 2019 | | | DO [address] [place] | | | | | | [place] [address] | | | | | | [phone] | | | | | | | | | | | | Genesis Ayon OT | | +--------+ + + + + | 02/25/ | Office | Primary Care | Erika Ernst, | | | 2019 | Visit | | DO [address] [place] | | | | | | [place] [address] | | | | | | [phone] | | | | | | | [...] | | | | | [place] [address] | | | | | | [phone] | | | | | | | | +--------+ + + + + | 02/27/ | Appointment | Radiology | Dhara, | | | 2019 | | | DWAINE Ross [address] | | | | | | [address] [facility] | | | | | | [place] [address] | | | | | | [phone] | | | | | | | | +--------+ + + + + | 03/04/ | Appointment | Rehabilitation | Genesis Ayon OT | | | 2019 | | | | | +--------+ + + + + | 03/09/ | Office | Orthopedic Surgery | Jeffrey Ganhdi, | | | 2019 | Visit | | [address] | | | | | | [place] [address] | | | | | | [phone] | | | | | | | [...] [place] | | | | | | [address] | | | | | | [phone] | | | | | | | [...] | | | | | [place] [address] | | | | | | [phone] | | | | | | | | | | | | Azul Yeboah, | | | | | | MD [address] | | | | | | [place] | | | | | | [place] [address] | | | | | | [phone] | | | | | | | [...] | | | | | | [place] [address] | | | | | | [phone] | | | | | | | | +--------+ + + + + documented as of this encounter Visit Diagnoses Not on filedocumented in this encounter"
--- OUTSIDE RECORDS SUMMARY | ~2020-02-18 | XMS | Encounter Summary ---
Demographics + + + | Address | [address] | | | [place] [address] | + + + | Home Phone [...] Team Providers + +------+ + | Care White Shoe Ragger Name | Role | Phone | + +------+ + | Erika Ernst DO | PCP | | + +------+ + Encounter Details +--------+ + + + + | Date | Type | Department | Care Team | Description | +--------+ + + + + | 10/17/ | [facility] [place] [facility] | Erika Ernst, | Screening for breast | | 2019 | Encounter | Hospital P | DO [address] | cancer | | | | Mammography [address] | [place] [address] | | | | | [address] [place] | [phone] | | | | | [place], [place] | | | | | | [address] | | | | | | [phone] | | | +--------+ + + + [...] | | | | | [place] [address] | | | | | | [phone] | | | | | | | | | | | | Julia Fisher, | | | | | | PT | | +--------+ + + + + | 02/18/ | Appointment | Rehabilitation | Erika Ernst, | | | 2019 | | | DO [address] [place] | | | | | | [place] [address] | | | | | | [phone] | | | | | | | | | | | | Genesis Ayon OT | | +--------+ + + + + | 02/25/ | Office | Primary Care | Erika Ernst, | | | 2019 | Visit | | DO [address] [place] | | | | | | [place] [address] | | | | | | [phone] | | | | | | | [...] | | | | | [place] [address] | | | | | | [phone] | | | | | | | | +--------+ + + + + | 02/27/ | Appointment | Radiology | Dhara, | | | 2019 | | | [address] | | | | | | [address] [place], | | | | | | [place] [address] | | | | | | [phone] | | | | | | | | +--------+ + + + + | 03/04/ | Appointment | Rehabilitation | Genesis Ayon OT | | | 2019 | | | | | +--------+ + + + + | 03/09/ | Office | Orthopedic Surgery | Jeffrey Gandhi, | | | 2019 | Visit | | [address] | | | | | | [place] [address] | | | | | | [phone] | | | | | | | [...] [place] | | | | | | [address] | | | | | | [phone] | | | | | | | [...] | | | | | [place] [address] | | | | | | [phone] | | | | | | | | | | | | Azul Yeboah, | | | | | | MD [address] | | | | | | [place] | | | | | | [place] [address] | | | | | | [phone] | | | | | | | [...] | | | | | | [place] [address] | | | | | | [phone] | | | | | | | | +--------+ + + + + documented as of this encounter Procedures + +--------+ + + + | Procedure Name | Priori | Date/Time | Associated Diagnosis | Comments | | | ty | | | | + +--------+ + + + | JERMAIN TOMOSYN | Routin | 10/17/2018 | Screening for | Results for this | | SCREENING BILATERAL | e | 8:59 AM | breast cancer | procedure are in the | | | | PST | | results section. | + +--------+ + + + documented in this encounter Results JERMAIN Tomosynthesis Screening Bilateral (10/17/2018 8:59 AM PST) + + | Specimen | + + | | + + + + + | Impressions | Performed At | + + + | IMPRESSION: BIRADS category: 2. No findings suspicious for | [facility] | | malignancy. COMMENT: 1. A negative or "no suspicious findings" | | | mammogram report should not delay biopsy if clinical suspicious | | | findings are present. 2. About 7% of breast cancers are not visible | | | on mammogram. 3. Dense breasts can obscure significant breast masses. | | | COMMENT: BIRADS Category Zero Incomplete: Needs additional | | | imaging evaluation. BIRADS Category One Negative mammogram. BIRADS | | | Category Two Benign findings. BIRADS Category Three Probably benign | | | finding, short interval follow-up suggested. BIRADS Category Four | | | Suspicious for/of malignancy. BIRADS Category Five Highly suggestive | | | for/of malignancy. Dictated by: Chris Bedolla Electronically | | | Signed by: Chris Bedolla on 10/17/2018 9:02 AM | | + + + + + + | Narrative | Performed At | + + + | EXAMINATION: JERMAIN TOMOSYN SCREENING BILATERAL HISTORY: routine | [facility] | | mammogram to screen for breast cancer COMPARISON STUDY: | | | Ultrasound 09/03/2013 TECHNIQUE: 3D tomosynthesis, 2D | | | synthesized images and standard digital mammographic images are | | | utilized in study interpretation. Computer-aided detection analysis | | | was performed and included in the interpretation of this study. | | | FINDINGS: No dominant mass, clustered microcalcification or | | | architectural distortion is seen. Intramammary lymph node evident | | | upper posterior 3rd depth right breast on MLO projection. Benign | | | calcification.. | | + + + + +---------+ + + | Performing | Address | City/State/Zipcode | Phone Number | | Organization | | | | + +---------+ + + | [facility] | | | | + +---------+ + + documented in this encounter Visit Diagnoses + + | Diagnosis | + + | Screening for breast cancer Breast screening, unspecified | + + documented in this encounter
--- OUTSIDE RECORDS SUMMARY | ~2020-02-18 | XMS | Encounter Summary ---
Demographics + + + | Address | [address] | | | [place] [address] | + + + | Home Phone [...] Providers + +------+ + | Care Supervisor Anodizing Name | Role | Phone | + +------+ + | Erika Ernst DO | PCP | | + +------+ + Reason for Visit + + + | Reason | Comments | + + + | Headache | | + + + Encounter Details +--------+ + + + + | Date | Type | Department | Care Team | Description | +--------+ + + + + | 02/08/ | Telephone | [place] [facility] | Luis Nichole MD | Headache | | 2019 | | [facility] | [address] | | | | | CLINIC [address] | [place] | | | | | [address] [place], | [address] | | | | | [place] [address] | | | | | | [phone] | | | +--------+ + + + [...] | | | | | [place] [address] | | | | | | [phone] | | | | | | | | | | | | Julia Fisher, | | | | | | PT | | +--------+ + + + + | 02/18/ | Appointment | Rehabilitation | Erika Ernst, | | | 2019 | | | DO [address] [place] | | | | | | [place] [address] | | | | | | [phone] | | | | | | | | | | | | Genesis Ayon OT | | +--------+ + + + + | 02/25/ | Office | Primary Care | Erika Ernst, | | | 2019 | Visit | | DO [address] [place] | | | | | | [place] [address] | | | | | | [phone] | | | | | | | [...] | | | | | [place] [address] | | | | | | [phone] | | | | | | | | +--------+ + + + + | 02/27/ | Appointment | Radiology | Dhara, | | | 2019 | | | [address] | | | | | | [address] [facility], | | | | | | [place] [address] | | | | | | [phone] | | | | | | | [...] | | | | | [place] [address] | | | | | | [phone] | | | | | | | [...] [place] | | | | | | [address] | | | | | | [phone] | | | | | | | [...] | | | | | [place] [address] | | | | | | [phone] | | | | | | | | | | | | Azul Yeboah, | | | | | | MD [address] | | | | | | [place] | | | | | | [place] [address] | | | | | | [phone] | | | | | | | [...] | | | | | | [place] [address] | | | | | | [phone] | | | | | | | | +--------+ + + + + documented as of this encounter Visit Diagnoses Not on filedocumented in this encounter"
--- OUTSIDE RECORDS SUMMARY | ~2020-02-18 | XMS | Encounter Summary ---
Demographics + + + | Address | [address] | | | [place] [address] | + + + | Home Phone [...] Providers + +------+ + | Care Lacquer Coater Name | Role | Phone | + +------+ + | Erika Ernst DO | PCP | | + +------+ + Encounter Details +--------+ + + + + | Date | Type | Department | Care Team | Description | +--------+ + + + + | 01/16/ | Virtual | [facility] | Usha Rodriguez | De Quervain's | | 2020 | Office | OCCUPATIONAL [facility] | MD Precious [address] | tenosynovitis, right | | | Visit | [address] | (Primary Dx); Place | | | | [address] | [place] [address] | of occurrence, | | | | [place], [place] | [phone] | industrial places | | | | [address] | | and premises | | | | [phone] | | | +--------+ + + + [...] documented as of this encounter Progress Notes Usha Rodriguez MD - 01/17/2020 2:15 PM PDTThis exam was initially conducted via a [employer] 256-bit AES encrypted bidirectional video session. Service was provided wxeo-[id number] with the patient via interactive videoconferencing Video start time 1416 Video end time 1427 Total time (in minutes) including non [id number]-vu-rcxn time (reviewing records, documentation, etc..) 19 You have chosen to receive care through the use of telemedicine. Telemedicine enables [facility] care providers at different locations to provide safe, effective and convenient care throu gh the use of technology. As with any health care service, there are risks associated with t he use of telemedicine, including equipment failure, poor image resolution and information s ecurity issues. Do you understand the risks and benefits of telemedicine as I have explained them to you? " Yes" Have your questions regarding telemedicine been answered? "Yes" Patient is currently at home Do you consent to the use of telemedicine in your medical care today? Yes. Last question, I need to confirm where are you physically located right now? Answer: Patient confirms they are not located in a state where I, Usha Rodriguez MD am licensed. She does reside in a state where I have license privileges as a visiting provi cody. 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 This virtual visit establish secondary to the current coronavirus s ituation. Since her last visit she states she has noticed some increased weakness of the right hand, trouble with gripping and grasping, along with mild discomfort. She states previously, she had noticed some weakness which tended to wax and wane, now over the last 1-1/2 weeks or so she has noticed more continuous sense of weakness in the right hand. She has had no recent injury or increased activity that may account for her symptoms. Was concerned, as she knows that previously all treatment recommendations have been exhausted. She is already participated in therapy, does have home exercises which she has been complia nt with. Past medical history, medications, allergies reviewed Review of systems: As per HPI Objective: nursing notes reviewed. Difonaa-njps-hmsudnxbr, well-nourished, in no apparent distress, pleasant cooperative. Right wrist-no visible swelling does appear to have full range of motion without limitation . Is able to make a fist. Does have apparent decreased pincer strength with attempts at ho lding a piece of paper with the right hand. Imaging/diagnostics: None indicated this visit Pending interventions: Continue conservative management. Assessment: 1. Right de Quervain's tenosynovitis-status post surgical release 2. Right extensor carpi ulnaris tendon tenosynovectomy 3. Bilateral carpal tunnel syndrome-per EMG-not evidenced on MRI-not administratively accep everardo 1. Cervical strain-medically stationary Plan: Etiology for her persistent weakness is unclear. She does have evidence of carpal tunnel s yndrome per EMG studies which could be contributing to some of her weakness. Also this coul d be secondary to deconditioning postoperative. Encouraged her to continue her home exercis es, and she will follow-up in about 4 weeks. If she continues to have progressive weakness, may consider repeating neurodiagnostic testing, however will reassess at her next follow-up . If it continues to improve, anticipate she will be medically stationary at that time. e will return sooner for acute worsening or other concerns. She voices understanding and ag reement. E: Regular duty R: None Impairment undetermined at this point in time, based on current objective findings it is no t an anticipated consequence of this injury however patient has not yet reached MMI status. This note was dictated using Tangoe voice recognition software. Occasional wrong- word or sound-alike substitutions may have occurred due to the inherent limitations of voice recogni tion software. Please read the chart carefully and recognize, using context, where these hubbard bstitutions have occurred. 2 :35 PM PDTdocumented in this encounter Plan of Treatment +--------+ + + + + | Date | Type | Specialty | Care Team | Description | +--------+ + + + + | 02/18/ | Appointment | Rehabilitation | Erika Ernst, | | 2019 | | | DO [facility] | | | | | | [place] [address] | | | | | | [phone] | | | | | | | | | | | | Julia Fisher, | | | | | | PT | | +--------+ + + + + | 02/18/ | Appointment | Rehabilitation | Erika Ernst, | 2019 | | | DO [address] | | | | | | [place] [address] | | | | | | [phone] | | | | | | | | | | | | Genesis Ayon, OT | | +--------+ + + + + | 02/25/ | Office | Primary Care | Erika Ernst, | | | 2019 | Visit | | DO [address] [place] | | | | | | [place] [address] | | | | | | [phone] | | | | | | | [...] | | | | | [place] [address] | | | | | | [phone] | | | | | | | | +--------+ + + + + | 02/27/ | Appointment | Radiology | Dhara, | | | 2019 | | | [address] | | | | | | [address] [place], | | | | | | [place] [address] | | | | | | [phone] | | | | | | | [...] [place] | | | | | | [place] [address] | | | | | | [phone] | | | | | | | [...] [place] | | | | | | [address] | | | | | | [phone] | | | | | | | [...] | | | | | [place] [address] | | | | | | [phone] | | | | | | | | | | | | Azul Yeboah, | | | | | | MD [address] | | | | | | [place] | | | | | | [place] [address] | | | | | | [phone] | | | | | | | [...] | | | | | | [place] [address] | | | | | | [phone] | | | | | | | | +--------+ + + + + documented as of this encounter Procedures + +--------+ + + + | Procedure Name | Priori | Date/Time | Associated Diagnosis | Comments | | | ty | | | | + +--------+ + + + | LABS - EXTERNAL SCAN | | 01/01/2020 | | Results for this | | | | 12:00 AM | | procedure are in the | | | | PDT | | results section. | + +--------+ + + + documented in this encounter Results LABS - EXTERNAL SCAN (01/01/2020 12:00 AM PDT) + + + | Narrative | Performed At | + + + | Ordered by an | | | unspecified provider. | | + + + documented in this encounter Visit Diagnoses + + | Diagnosis | + + | De Karolyn's tenosynovitis, right - Primary Radial styloid tenosynovitis | + + | Place of occurrence, industrial places and premises | + + documented in this encounter
--- OUTSIDE RECORDS SUMMARY | ~2020-02-18 | XMS | Encounter Summary ---
Demographics + + + | Address | [address] | | | [place] [address] | + + + | Home Phone [...] Team Providers + +------+ + | Care Vet Assistant Name | Role | Phone | [...] | | | of left | [place] [address] | [address] | | | | | ankle, | Phone: | Phone: | | | | | subsequent | [phone] | [phone] | | | | | encounter | Fax: | Fax: | | | | | Procedures | [phone] | [phone] | | | | | MRI Foot [...] | [address] | [place] [address] | ligament of left | | | | [place], [place] | [phone] | ankle, subsequent | | | | [address] | | encounter | | | | [phone] | | | +--------+ + + + [...] | 19 | 9 | | [facility]ACE [id number]) | | | | | | | [...] | | | | | [place] [address] | | | | | | [phone] | | | | | | | | | | | | Julia Fisher, | | | | | | PT | | +--------+ + + + + | 02/18/ | Appointment | Rehabilitation | Erika Ernst, | | | 2019 | | | DO [address] [place] | | | | | | [place] [address] | | | | | | [phone] | | | | | | | | | | | | Genesis Ayon OT | | +--------+ + + + + | 02/25/ | Office | Primary Care | Erika Ernst, | | | 2019 | Visit | | DO [address] [place] [address] | | | | | | [place] [address] | | | | | | [phone] | | | | | | | [...] | | | | | [place] [address] | | | | | | [phone] | | | | | | | | +--------+ + + + + | 02/27/ | Appointment | Radiology | Dhara, | | | 2019 | | | [address] | | | | [address] [place], | | | | | | [place] [address] | | | | | | [phone] | | | | | | | | +--------+ + + + + | 03/04/ | Appointment | Rehabilitation | Genesis Ayon OT | | | 2019 | | | | | +--------+ + + + + | 03/09/ | Office | Orthopedic Surgery | Jeffrey Gandhi, | | | 2019 | Visit | | [address] | | | | | | [place] [address] | | | | | | [phone] | | | | | | | [...] [place] | | | | | | [address] | | | | | | [phone] | | | | | | | [...] | | | | | [place] [address] | | | | | | [phone] | | | | | | | | | | | | Azul Yeboah, | | | | | | [address] | | | | | | [place] | | | | | | [place] [address] | | | | | | [phone] | | | | | | | [...] | | | | | | [place] [address] | | | | | | [phone] | | | | | | | | +--------+ + + + + documented as of this encounter Visit Diagnoses + + | Diagnosis | + + | Sprain of calcaneofibular ligament of left ankle, subsequent encounter | + + documented in this encounter"
--- OUTSIDE RECORDS SUMMARY | ~2020-02-18 | XMS | Encounter Summary ---
Demographics + + + | Address | [address] | | | [place] [address] | + + + | Home Phone [...] Team Providers + +------+ + | Care Individual Pension Consultant Name | Role | Phone | [...] | | | of left | [place] [address] | [place] [address] | | | | | ankle, | Phone: | Phone: | | | | | initial | [phone] | [phone] | | | | | encounter | Fax: | Fax: | | | | | Procedures | [phone] | [phone] | | | | | PT TREAT [...] [address] | [place] [address] | encounter (Primary | | | | [place], [place] | [phone] | Dx) | | | | [address] | | | | | | [phone] | Nick Barrios I, PT | | [...] might be different fro m the original. [facility] PT [address] [place] [address] Physical Therapy Daily Treatment Note Date: 09/21/2018 [...] in favor of SL heel raise with GEOMORPHOLOGIST. ONGOING: SLS on even surface 3x30 seconds [...] 2019 | | | DO [address] | | | | | | [place] [address] | | | | | | [phone] | | | | | | | | | | | | Julia Fisher, | | | | | | PT | | +--------+ + + + + | 02/18/ | Appointment | Rehabilitation | Erika Ernst, | | | 2019 | | | DO [address] | | | | | | [place] [address] | | | | | | [phone] | | | | | | | | | | | | Genesis Ayon OT | | +--------+ + + + + | 02/25/ | Office | Primary Care | Erika Ernst, | | | 2019 | Visit | | DO [address] | | | | | | [place] [address] | | | | | | [phone] | | | | | | | [...] | | | | | [place] [address] | | | | | | [phone] | | | | | | | | +--------+ + + + + | 02/27/ | Appointment | Radiology | Dhara, | | | 2019 | | | [address] | | | | [address] [place], | | | | | | [place] [address] | | | | | | [phone] | | | | | | | [...] ST | | | | | | [place] [address] | | | | | | [phone] | | | | | | | [...] [place] | | | | | | [address] | | | | | | [phone] | | | | | | | [...] | | | | | [place] [address] | | | | | | [phone] | | | | | | | | | | | | Azul Yeboah, | | | | | | MD [address] | | | | | | [place] | | | | | | [place] [address] | | | | | | [phone] | | | | | | | [...] | | | | | | [place] [address] | | | | | | [phone] | | | | | | | | +--------+ + + + + documented as of this encounter Visit Diagnoses + + | Diagnosis | + + | Sprain of left ankle, subsequent encounter - Primary | + + documented in this encounter
--- OUTSIDE RECORDS SUMMARY | ~2020-02-18 | XMS | Clinical Summary ---
Demographics + + + | Address | [address] | | | [place] [address] | + + + | Home Phone | | + + + | Preferred Language | Unknown | + + + | Marital Status | Single | + + + | Episcopal Affiliation | Unknown | + + + | Race | Unknown | + + + | Ethnic Group | Unknown | + + + Author + + + | Author | [facility] (Historical as of | | | 05-18-19) | + + + | Organization | [facility] (Historical as of | | | 05-18-19) | + + + | Address | Unknown | + + + | Phone | Unavailable | + + + Support + + +---------+ + | Name | Relationship | Address | Phone | + + +---------+ + | Noblit,Evelyn | ECON | Unknown | | + + +---------+ + Care Team Providers + +------+ + | Care Grounds Worker Name | Role | Phone | + +------+ + | Erika Ernst DO | PP | | + +------+ + Allergies + + + + + + | Active Allergy | Reactions | Severity | Noted | Comments | | | | | Date | | + + + + + + | Adhesive Tape | Other (See | Medium | 06/22/20 | Other reaction(s): | | | Comments), Rash | | 12 | Proclivity to | | | | | | C-diff with certain | | | | | | antibiotics | + + + + + + | Escitalopram | Palpitations | High | 06/19/20 | PROLONGED QT | | | | | 18 | | + + + + + + | Hydrocodone | Hives | High | | | + + + + + + | Latex | Rash | High | | Pt. states | | | | | | allergic to "MEDICAL | | | | | | ADHESIVE" (TAPES, | | | | | | BANDAGES) Reactions | | | | | | worst if on longer. | + + + + + + | Oxycodone | Nausea Only, Rash | Medium | 08/02/20 | | | | | | 18 | | + + + + + + Current Medications + + +--------+---------+------+------+-------+ | Prescription | Sig. | Disp. | Refills | Star | End | Statu | | | | | | t | Date | s | | | | | | Date | | | + + +--------+---------+------+------+-------+ | naproxen | Take 500 mg by mouth | | | | | Activ | | (NAPROSYN) 500 MG | 2 (two) times daily | | | | | e | | tablet | with meals. | | | | | | + + +--------+---------+------+------+-------+ | busPIRone (BUSPAR) | Take 5 mg by mouth 3 | | | | | Activ | | 5 MG tablet | (three) times | | | | | e | | | daily. | | | | | | + + +--------+---------+------+------+-------+ | beclomethasone | Inhale 1 puff into | | | | | Activ | | (QVAR) 80 MCG/ACT | the lungs 2 (two) | | | | | e | | inhaler | times daily. | | | | | | + + +--------+---------+------+------+-------+ | | Take 1 tablet by | | | | | Activ | | fexofenadine-pseudoe | mouth daily. | | | | | e | | phedrine (JOSÉ ANTONIO-D | | | | | | | | 24) 180-240 MG per | | | | | | | | 24 hr tablet | | | | | | | + + +--------+---------+------+------+-------+ | montelukast | Take 10 mg by mouth | | | | | Activ | | (SINGULAIR) 10 MG | nightly. | | | | | e | | tablet | | | | | | | + + +--------+---------+------+------+-------+ | traMADol (ULTRAM) | Take 50 mg by mouth. | | | 09/0 | | Activ | | 50 MG | | | | 5/20 | | e | | tabletIndications: | | | | 18 | | | | PRN | | | | | | | + + +--------+---------+------+------+-------+ | cholecalciferol | Take 1,000 Units by | | | | | Activ | | (VITAMIN D-3) 1000 | mouth daily. | | | | | e | | units tablet | | | | | | | + + +--------+---------+------+------+-------+ | | Take 1 tablet by | 30 | 0 | 10/1 | | Activ | | oxyCODONE-acetaminop | mouth every 4 (four) | tablet | | 9/20 | | e | | hen (PERCOCET) 5-325 | hours as needed for | | | 18 | | | | MG per tablet | Pain. | | | | | | + + +--------+---------+------+------+-------+ | azithromycin | | | | 10/3 | | Activ | | (ZITHROMAX) 250 MG | | | | 1/20 | | e | | tablet | | | | 18 | | | + + +--------+---------+------+------+-------+ | ondansetron | take 1 tablet by | | | 10/1 | | Activ | | (ZOFRAN) 4 MG tablet | mouth three times a | | | 9/20 | | e | | | day if needed for | | | 18 | | | | | nausea for UP TO 7 | | | | | | | | DAYS | | | | | | + + +--------+---------+------+------+-------+ | amLODIPine | Take 10 mg by mouth. | | | 10/2 | | Activ | | (NORVASC) 10 MG | | | | 9/20 | | e | | tablet | | | | 18 | | | + + +--------+---------+------+------+-------+ | promethazine | Take 25 mg by mouth | | | | | Activ | | (PHENERGAN) 25 MG | every 6 (six) hours | | | | | e | | tablet | as needed for | | | | | | | | Nausea. | | | | | | + + +--------+---------+------+------+-------+ | | Inhale 1 puff into | | | 11/0 | | Activ | | ipratropium-albutero | the lungs. | | | 03/21 | | e | | l (COMBIVENT | | | | 18 | | | | RESPIMAT) 20-100 | | | | | | | | MCG/ACT inhaler | | | | | | | + + +--------+---------+------+------+-------+ | metoprolol | take 1 tablet by | | | 09/02 | | Activ | | (TOPROL-XL) 50 MG 24 | mouth daily | | | 10/21 | | e | | hr tablet | | | | 18 | | | + + +--------+---------+------+------+-------+ Active Problems + + + | Problem | Noted Date | + + + | De Quervain thyroiditis | 05/31/2018 | + + + + + | Overview: Added automatically from request for surgery [id number] | + + + + + | Complete tear of wrist ligament | 05/31/2018 | + + + + + | Overview: Added automatically from request for surgery [id number] | + + Immunizations + + + + | Name | Dates Previously Given | Next Due | + + + + | Hepatitis B Adult | 09/15/2015 | | + + + + | Pneumococcal | 06/22/2016 | | | Conjugate 13-valent | | | + + + + Family History + + +------+ + | Medical History | Relation | Name | Comments | + + +------+ + | Heart disease | Father | | | + + +------+ + | Hypertension | Father | | | + + +------+ + | Aneurysm | Mother | | | + + +------+ + | Cancer | Mother | | | + + +------+ + | Diabetes type I | Mother | | | + + +------+ + | Hypertension | Mother | | | + + +------+ + | Stroke | Mother | | | + + +------+ + + +------+--------+ + | Relation | Name | Status | Comments | + +------+--------+ + | Father | | | | + +------+--------+ + | Mother | | | | + +------+--------+ + Social History + +-------+ +--------+------+ | [...] on file | | + + + Last Filed Vital Signs + + + + | Vital Sign | Reading | Time Taken | + + + + | Blood Pressure | 126/66 | 11/15/2018 1:14 PM PST | + + + + | Pulse | 75 | 12/27/2018 1:58 PM PDT | + + + + | Temperature | 36.4 C (97.5 F) | 07/20/2018 10:17 AM PDT | + + + + | Respiratory Rate | 18 | 11/15/2018 1:14 PM PST | + + + + | Oxygen Saturation | 98% | 12/27/2018 1:58 PM PDT | + + + + | Inhaled Oxygen | - | - | | Concentration | | | + + + + | Weight | 167.8 kg (370 lb) | 12/27/2018 1:58 PM PDT | + + + + | Height | 177.8 cm (5' 10") | 12/27/2018 1:58 PM PDT | + + + + | Body Mass Index | 53.09 | 12/27/2018 1:58 PM PDT | + + + + Plan of Treatment + + + + + | Health Maintenance | Due Date | Last Done | Comments | + + + + + | Cervical Cancer | | | | | Screening (Pap) | 1 | | | + + + + + | Vaccine: Influenza | | 05/16/2018, 05/16/2017, | | | (Season Ended) | 0 | 06/09/2015, Additional history | | | | | exists | | + + + + + | Vaccine: | | 05/08/2014, 10/02/2012 | | | Dtap/Tdap/Td (3 - | 4 | | | | Td) | | | | + + + + + Results Not on filefrom Last 3 Months Insurance + +--------+ +------+-------+---------+ | Payer | Benefi | Subscriber | Type | Phone | Address | | | t Plan | ID | | | | | | / | | | | | | | Group | | | | | + +--------+ +------+-------+---------+ | [employer] - [place] | L&I - | [id number] | | | | | | [place] | | | | | | | [place]IF | | | | | + +--------+ +------+-------+---------+ | [employer] | ODS | [id number] | | | | | | HEALTH | | | | | | | PLAN | | | | | + +--------+ +------+-------+---------+ + +--------+ +--------+ + + | Guarantor Name | Accoun | Relation to | Date | Phone | Billing Address | | | t Type | Patient | of | | | | | | | | | | + +--------+ +--------+ + + | ANDREA SUH | Person | Self | [birth year] | Work: | [address] | | | 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
--- OUTSIDE RECORDS SUMMARY | ~2020-02-18 | XMS | Encounter Summary ---
Demographics + + + | Address | [address] | | | [place] [address] | + + + | Home Phone [...] Team Providers + +------+ + | Care Brim Buster Name | Role | Phone | + [...] | | | [place] TREAT | [place] [address] | [place] [address] | | | | | | Phone: | Phone: | | | | | | [phone] | [phone] | | | | | | Fax: | Fax: | | | | | | [phone] | [phone] | +--------+--------+ + + + + Encounter [...] [address] | [place] [address] | | | | | [place], [place] | [phone] | | | | | [address] | | | | | | [phone] | Julia Peña, | | | | | | PEARL TECHNICIAN | | +--------+ + + + + [...] | 11/26/19 | | | (VITAMIN D3) 48292 | mouth Once a week | tablet [...] as of this encounter Progress Notes Julia Peña PEARL TECHNICIAN - 01/15/2019 10:36 AM PDTFormatting of this note might be differen t from the original. [facility] THERAP[facility] PT [address] [place] [address] Physical Therapy Daily Treatment Note Date: 01/15/2019 [...] blue thera band; SLS. Ongoing: Wall sits [id number] holds, Bridging 3 x 10 reps, Side [...] | | | | | [place] [address] | | | | | | [phone] | | | | | | | | | | | | Julia Fisher, | | | | | | PT | | +--------+ + + + + | 02/18/ | Appointment | Rehabilitation | Erika Ernst, | | | 2019 | | | DO [address] [place] | | | | | | [place] [address] | | | | | | [phone] | | | | | | | | | | | | Genesis Ayon OT | | +--------+ + + + + | 02/25/ | Office | Primary Care | Erika Ernst, | | | 2019 | Visit | | DO [address] | | | | | | [place] [address] | | | | | | [phone] | | | | | | | [...] | | | | | [place] [address] | | | | | | [phone] | | | | | | | | +--------+ + + + + | 02/27/ | Appointment | Radiology | Dhara, | | | 2019 | | | [address] | | | | | | [address] [facility] [place], | | | | | | [place] [address] | | | | | | [phone] | | | | | | | [...] | | | | | [place] [address] | | | | | | [phone] | | | | | | | [...] [place] | | | | | | [address] | | | | | | [phone] | | | | | | | [...] | | | | | [place] [address] | | | | | | [phone] | | | | | | | | | | | | Azul Yeboah, | | | | | | MD [address] | | | | | | [place] | | | | | | [place] [address] | | | | | | [phone] | | | | | | | [...] | | | | | | [place] [address] | | | | | | [phone] | | | | | | | | +--------+ + + + + documented as of this encounter Visit Diagnoses + + | Diagnosis | + + | Acute pain of right knee - Primary | + + documented in this encounter"
--- OUTSIDE RECORDS SUMMARY | ~2020-02-18 | XMS | Encounter Summary ---
Demographics + + + | Address | [address] | | | [place] [address] | + + + | Home Phone [...] Team Providers + +------+ + | Care Batcher Operator Name | Role | Phone | + +------+ + | Erika Ernst DO | PCP | | + +------+ + Encounter Details +--------+ + + + + | Date | Type | Department | Care Team | Description | +--------+ + + + + | 10/27/ | Hospital | [place] [facility] | Camille Bush, | | | 2019 | Encounter | [facility] XRAY [facility] | [facility] [address] [facility] | | | | | [address] [place] | [place] [address] | | | | | [place], [place] | [phone] | | | | | [address] | | | | | | [phone] | | | +--------+ + + + [...] | 19 | 9 | | [id number]) | | | | | | | [...] | | | | | [place] [address] | | | | | | [phone] | | | | | | | | | | | | Julia Fisher, | | | | | | PT | | +--------+ + + + + | 02/18/ | Appointment | Rehabilitation | Erika Ernst, | | | 2019 | | | DO [address] | | | | | | [place] [address] | | | | | | [phone] | | | | | | | | | | | | Genesis Ayon, SUSAN | | +--------+ + + + + | 02/25/ | Office | Primary Care | Erika Ernst, | | | 2019 | Visit | | DO [address] [place] [address] | | | | | | [place] [address] | | | | | | [phone] | | | | | | | [...] | | | | | [place] [address] | | | | | | [phone] | | | | | | | | +--------+ + + + + | 02/27/ | Appointment | Radiology | Dhara, | | | 2019 | | | [address] | | | | | [address] [place], | | | | | | [place] [address] | | | | | | [phone] | | | | | | | [...] [place] | | | | | | [place] [address] | | | | | | [phone] | | | | | | | [...] [place] | | | | | | [address] | | | | | | [phone] | | | | | | | [...] | | | | | [place] [address] | | | | | | [phone] | | | | | | | | | | | | Azul Yeboah, | | | | | | [address] | | | | | | [place] | | | | | | [place] [address] | | | | | | [phone] | | | | | | | [...] | | | | | | [place] [address] | | | | | | [phone] | | | | | | | | +--------+ + + + + documented as of this encounter Procedures + +--------+ + + + | Procedure Name | Priori | Date/Time | Associated Diagnosis | Comments | | | ty | | | | + +--------+ + + + | XR KNEE RIGHT 3 VW | Routin | 10/27/2018 | Contusion of right | Results for this | | | e | 6:43 PM | knee, initial | procedure are in the | | | | PST | encounter | results section. | + +--------+ + + + documented in this encounter Results XR Knee Right 3 Vw (10/27/2018 6:43 PM PST) + + | Specimen | [...] XR KNEE RIGHT 3 VW HISTORY: right kneecap and | [facility] | | medial knee pain for one day after falling onto right knee last night | | | COMPARISON STUDY: None FINDINGS: Images in multiple views | | | showed no significant soft tissue or bony abnormality. If concern for | | | acute fracture remains clinically follow-up images in 10 to 14 days | | | recommended. . | | + + + + -------+ | Procedure Note | + -------+ | Mitchel, Rad Results In - 10/27/2018 6:59 PM PST EXAMINATION:XR KNEE RIGHT 3 | | VWHISTORY:right kneecap and medial knee pain for one day after falling onto right knee | | last nightCOMPARISON STUDY:NoneFINDINGS:Images in multiple views showed no significant | | soft tissue or bony abnormality.If concern for acute fracture remains clinically | | follow-up images in 10 to 14 days recommended. .IMPRESSION: IMPRESSION:No acute | | findingDictated by: Chris Bedolla | | 6:55 PM | |None | | | |FINDINGS: [...]
--- OUTSIDE RECORDS SUMMARY | ~2020-02-18 | XMS | Encounter Summary ---
Demographics + + + | Address | [address] | | | [place] [address] | + + + | Home Phone [...] Providers + +------+ + | Care Account Collector Name | Role | Phone | + +------+ + | Erika Ernst DO | PCP | | + +------+ + Reason for Visit + + + | Reason | Comments | + + + | Medical Problem | | + + + Encounter Details +--------+ + + + + | Date | Type | Department | Care Team | Description | +--------+ + + + + | 09/10/ | Telephone | [place] [facility] | Farrah Nowakice | Medical Problem | | 2019 | | H[facility]PITAL [facility]Y | [facility] | | | | | CENTER [address] | | | | | | [place] | | | | | | [address] | | | | | | [phone] | | | +--------+ + + + [...] | | | | | [place] [address] | | | | | | [phone] | | | | | | | | | | | | Julia Fisher, | | | | | | PT | | +--------+ + + + + | 02/18/ | Appointment | Rehabilitation | Erika Ernst, | | | 2019 | | | DO [address] | | | | | | [place] [address] | | | | | | [phone] | | | | | | | | | | | | Genesis Ayon OT | | +--------+ + + + + | 02/25/ | Office | Primary Care | Erika Ernst, | | | 2019 | Visit | | DO [address] | | | | | | [place] [address] | | | | | | [phone] | | | | | | | [...] [place] | | | | | | [place] [address] | | | | | | [phone] | | | | | | | | +--------+ + + + + | 02/27/ | Appointment | Radiology | Dhara, | | | 2019 | | | [address] | | | | | | [address] [facility], | | | | | | [place] [address] | | | | | | [phone] | | | | | | | | +--------+ + + + + | 03/04/ | Appointment | Rehabilitation | Geneiss Ayon OT | | | 2019 | | | | | +--------+ + + + + | 03/09/ | Office | Orthopedic Surgery | Jeffrey Gandhi, | | | 2019 | Visit | | [address] | | | | | | [place] [address] | | | | | | [phone] | | | | | | | [...] [place] | | | | | | [address] | | | | | | [phone] | | | | | | | [...] | | | | | [place] [address] | | | | | | [phone] | | | | | | | | | | | | Azul Yeboah, | | | | | | MD [address] | | | | | | [place] | | | | | | [place] [address] | | | | | | [phone] | | | | | | | [...] [address] | | | | | | [phone] | | | | | | | | +--------+ + + + + documented as of this encounter Visit Diagnoses Not on filedocumented in this encounter"
--- OUTSIDE RECORDS SUMMARY | ~2020-02-18 | XMS | Encounter Summary ---
Demographics + + + | Address | [address] | | | [place] [address] | + + + | Home Phone [...] + + + | Author | [facility] | | | and [place] | + + + | Organization | [facility] | | | [...] Team Providers + +------+ + | Care Reclamation Supervisor Name | Role | Phone | [...] + + + + | 08/14/ | Telephone | [place] [facility] | Erika Ernst, | Medication Refill | | 2019 | | [facility] | [address] | | | | | [facility] [address] | [place] [address] | | | | | [address] [place], | [phone] | | | | | [place] [address] | | | | | | [phone] | | | +--------+ + + + [...] [address] | | | | | | [phone] | | | | | | | | | | | | Julia Fisher, | | | | | | PT | | +--------+ + + + + | 02/18/ | Appointment | Rehabilitation | Erika Ernst, | | | 2019 | | | DO [address] | | | | | | [place] [address] | | | | | | [phone] | | | | | | | | | | | | Genesis Ayon OT | | +--------+ + + + + | 02/25/ | Office | Primary Care | Erika Ernst, | | | 2019 | Visit | | DO [address] | | | | | | [place] [address] | | | | | | [phone] | | | | | | | [...] | | | | | | [place] [address] | | | | | | [phone] | | | | | | | | +--------+ + + + + | 02/27/ | Appointment | Radiology | Dhara, | | | 2019 | | | [address] | | | | | | [address] [place], | | | | | | [place] [address] | | | | | | [phone] | | | | | | | [...] [place] | | | | | | [place] [address] | | | | | | [phone] | | | | | | | [...] [place] | | | | | | [address] | | | | | | [phone] | | | | | | | [...] | | | | | [place] [address] | | | | | | [phone] | | | | | | | | | | | | Azul Yeboah, | | | | | | MD [address] | | | | | | [place] | | | | | | [place] [address] | | | | | | [phone] | | | | | | | [...] | | | | | | [place] [address] | | | | | | [phone] | | | | | | | | +--------+ + + + + documented as of this encounter Visit Diagnoses Not on filedocumented in this encounter"
--- OUTSIDE RECORDS SUMMARY | ~2020-02-18 | XMS | Encounter Summary ---
Demographics + + + | Address | [address] | | | [place] [address] | + + + | Home Phone [...] Team Providers + +------+ + | Care Entry Level Recruiter Name | Role | Phone | + +------+ + PCP | Unavailable | + +------+ + Encounter Details +--------+ + + + + | Date | Type | Department | Care Team | Description | +--------+ + + + + | 03/16/ | Hospital | [place] [facility] | Tyrese Kee | | | 2015 | Encounter | HOSPITAL EMERGENCY | MD [facility] [address] | | | | | CENTER [address] | [address] | | | | | [address] [place], [place] | [place] [address] | | | | | [address] | [phone] | | | | | [phone] | | | +--------+ + + + [...] | | | | | [place] [address] | | | | | | [phone] | | | | | | | | | | | | Julia Fisher, | | | | | | PT | | +--------+ + + + + | 02/18/ | Appointment | Rehabilitation | Erika Ernst, | | | 2019 | | | DO [address] | | | | | | [place] [address] | | | | | | [phone] | | | | | | | | | | | | Genesis Ayon OT | | +--------+ + + + + | 02/25/ | Office | Primary Care | Erika Ernst, | | | 2019 | Visit | | DO [address] | | | | | | [place] [address] | | | | | | [phone] | | | | | | | [...] | | | | | [place] [address] | | | | | | [phone] | | | | | | | | +--------+ + + + + | 02/27/ | Appointment | Radiology | Dhara, | | | 2019 | | | [address] | | | | | | [address] [facility], | | | | | | [place] [address] | | | | | | [phone] | | | | | | | [...] [place] | | | | | | [place] [address] | | | | | | [phone] | | | | | | | [...] [place] | | | | | | [address] | | | | | | [phone] | | | | | | | [...] | | | | | [place] [address] | | | | | | [phone] | | | | | | | | | | | | Azul Yeboah, | | | | | | MD [address] | | | | | | [place] | | | | | | [place] [address] | | | | | | [phone] | | | | | | | [...] | | | | | | [place] [address] | | | | | | [phone] | | | | | | | | +--------+ + + + + documented as of this encounter Visit Diagnoses Not on filedocumented in this encounter"
--- OUTSIDE RECORDS SUMMARY | ~2020-02-18 | XMS | Encounter Summary ---
Demographics + + + | Address | [address] | | | [place] [address] | + + + | Home Phone [...] Team Providers + +------+ + | Care Drawbridge Operator Name | Role | Phone | + +------+ + PCP | Unavailable | + +------+ + Encounter Details +--------+ + + + + | Date | Type | Department | Care Team | Description | +--------+ + + + + | 11/30/ | [facility] | Heike Rodriguez, | | | 2015 | Encounter | HOSPITAL EMERGENCY | BILINGUAL LEGAL ASSISTANT [address] | | | | | CENTER [address] | [place] | | | | | [place] | [address] | | | | | [address] | | | | | | [phone] | | | +--------+ + + + [...] | | | | | [place] [address] | | | | | | [phone] | | | | | | | | | | | | Julia Fisher, | | | | | | PT | | +--------+ + + + + | 02/18/ | Appointment | Rehabilitation | Erika Ernst, | | | 2019 | | | DO [address] | | | | | | [place] [address] | | | | | | [phone] | | | | | | | | | | | | Genesis Ayon, OT | | +--------+ + + + + | 02/25/ | Office | Primary Care | Erika Ernst, | | | 2019 | Visit | | DO [address] | | | | | | [place] [address] | | | | | | [phone] | | | | | | | [...] | | | | | [place] [address] | | | | | | [phone] | | | | | | | | +--------+ + + + + | 02/27/ | Appointment | Radiology | Dhara, | | | 2019 | | | [address] | | | | | | [address] [facility] [place], | | | | | | [place] [address] | | | | | | [phone] | | | | | | | | +--------+ + + + + | 03/04/ | Appointment | Rehabilitation | Genesis Ayon OT | | | 2019 | | | | | +--------+ + + + + | 03/09/ | Office | Orthopedic Surgery | Jeffrey Gandhi, | | 2019 | Visit | | [address] | | | | | | [place] [address] | | | | | | [phone] | | | | | | | [...] [place] | | | | | | [address] | | | | | | [phone] | | | | | | | [...] | | | | | [place] [address] | | | | | | [phone] | | | | | | | | | | | | Azul Yeboah, | | | | | | MD [address] | | | | | | [place] | | | | | | [place] [address] | | | | | | [phone] | | | | | | | [...] | | | | | | [place] [address] | | | | | | [phone] | | | | | | | | +--------+ + + + + documented as of this encounter Visit Diagnoses Not on filedocumented in this encounter"
--- OUTSIDE RECORDS SUMMARY | ~2020-02-18 | XMS | Encounter Summary ---
Demographics + + + | Address | [address] | | | [place] [address] | + + + | Home Phone [...] Team Providers + +------+ + | Care Component Inspector Name | Role | Phone | [...] + + + + | 11/12/ | Telephone | [place] [facility] | Keith Ernsta Joie, | Blood Pressure | | 2019 | | [facility] | DO [address] | | | | | MEDICAL CLIN[facility] [address] | [place] [address] | | | | | [address] [place], | [phone] | | | | | [place] [address] | | | | | | [phone] | | | +--------+ + + + [...] | | | | | [place] [address] | | | | | | [phone] | | | | | | | | | | | | Julia Fisher, | | | | | | PT | | +--------+ + + + + | 02/18/ | Appointment | Rehabilitation | Erika Ernst, | | | 2019 | | | DO [address] | | | | | | [place] [address] | | | | | | [phone] | | | | | | | | | | | | [facility] OT | | +--------+ + + + + | 02/25/ | Office | Primary Care | Erika Ernst, | | | 2019 | Visit | | DO [address] | | | | | | [place] [address] | | | | | | [phone] | | | | | | | [...] | | | | | [place] [address] | | | | | | [phone] | | | | | | | | +--------+ + + + + | 02/27/ | Appointment | Radiology | Dhara, | | | 2019 | | | [address] | | | | | | [address] [place], | | | | | | [place] [address] | | | | | | [phone] | | | | | | | [...] | | | | | [place] [address] | | | | | | [phone] | | | | | | | [...] [place] | | | | | | [address] | | | | | | [phone] | | | | | | | [...] | | | | | [place] [address] | | | | | | [phone] | | | | | | | | | | | | Azul Yeboah, | | | | | | MD [address] | | | | | | [place] | | | | | | [place] [address] | | | | | | [phone] | | | | | | | [...] | | | | | | [place] [address] | | | | | | [phone] | | | | | | | | +--------+ + + + + documented as of this encounter Visit Diagnoses Not on filedocumented in this encounter"
--- OUTSIDE RECORDS SUMMARY | ~2020-02-18 | XMS | Encounter Summary ---
Demographics + + + | Address | [address] | | | [place] [address] | + + + | Home Phone [...] Providers + +------+ + | Care Director Television News Name | Role | Phone | + +------+ + | Erika Ernst DO | PCP | | + +------+ + Reason for Visit + + + | Reason | Comments | + + + | Medication Prior | | | Authorization | | + + + Encounter Details +--------+ + + + + | Date | Type | Department | Care Team | Description | +--------+ + + + + | 09/13/ | Telephone | [facility] [facility] | Erika Ernst, | Medication Prior | | 2018 | | [facility] | [address] | Authorization | | | | MEDICAL CLIN[facility] [address] | [place] [address] | | | | | [address] [facility], | [phone] | | | | | [place] [address] | | | | | | [phone] | | | +--------+ + + + [...] | | | | | [place] [address] | | | | | | [phone] | | | | | | | | | | | | Julia Fisher, | | | | | | PT | | +--------+ + + + + | 02/18/ | Appointment | Rehabilitation | Erika Ernst, | | | 2019 | | | DO [address] | | | | | | [place] [address] | | | | | | [phone] | | | | | | | | | | | | [facility] OT | | +--------+ + + + + | 02/25/ | Office | Primary Care | Erika Ernst, | | | 2019 | Visit | | DO [address] | | | | | | [place] [address] | | | | | | [phone] | | | | | | | [...] | | | | | [place] [address] | | | | | | [phone] | | | | | | | | +--------+ + + + + | 02/27/ | Appointment | Radiology | Dhara, | | | 2019 | | | [address] | | | | | | 4TH [facility] [place], | | | | | | [place] [address] | | | | | | [phone] | | | | | | | [...] | | | | | [place] [address] | | | | | | [phone] | | | | | | | [...] [place] | | | | | | [address] | | | | | | [phone] | | | | | | | [...] | | | | | [place] [address] | | | | | | [phone] | | | | | | | | | | | | Azul Yeboah, | | | | | | MD [address] | | | | | | [place] | | | | | | [place] [address] | | | | | | [phone] | | | | | | | [...] | | | | | | [place] [address] | | | | | | [phone] | | | | | | | | +--------+ + + + + documented as of this encounter Visit Diagnoses Not on filedocumented in this encounter"
--- OUTSIDE RECORDS SUMMARY | ~2020-02-18 | XMS | Encounter Summary ---
Demographics + + + | Address | [address] | | | [place] [address] | + + + | Home Phone [...] Team Providers + +------+ + | Care Power Digger Operator Name | Role | Phone | + +------+ + | Erika Ernst DO | PCP | | + +------+ + Reason for Visit +--------+ + | Reason | Comments | +--------+ + | Other | Nurse only talk | +--------+ + Encounter Details +--------+ + + + + | Date | Type | Department | Care Team | Description | +--------+ + + + + | 09/20/ | Clinical | [place] [facility] | Erika Ernst, | | | 2018 | Support | [facility] | DO [address] | | | | | MEDICAL CLINIC [address] | [place] [address] | | | | | [address] [place], | [phone] | | | | | [place] [address] | | | | | | [phone] | | | +--------+ + + + [...] encounter Progress Notes Eden Brown LPN - 09/20/2019 2:45 PM PSTPatient states she was unable to belt picker her prazosin as it was the same dose as last time, once a day. She was informed that a second s cript was sent to the pharmacy for twice a day. She was informed to see if the pharmacy had received the BID RX, she states she will go back to the pharmacy and see if it is there, and if it is not, then she will call us from the pharmacy. Eden Brown LPN documented in this encounter Plan of Treatment +--------+ + + + + | Date | Type | Specialty | Care Team | Description | +--------+ + + + + | 02/18/ | Appointment | Rehabilitation | Erika Ernst, | | | 2019 | | | DO [address] | | | | | | [place] [address] | | | | | | [phone] | | | | | | | | | | | | Julia Fisher, | | | | | | PT | | +--------+ + + + + | 02/18/ | Appointment | Rehabilitation | Erika Ernst, | | | 2019 | | | DO [address] | | | | | | [place] [address] | | | | | | [phone] | | | | | | | | | | | | [facility] OT | | +--------+ + + + + | 02/25/ | Office | Primary Care | Erika Ernst, | | | 2019 | Visit | | DO [address] | | | | | | [place] [address] | | | | | | [phone] | | | | | | | [...] | | | | | [place] [address] | | | | | | [phone] | | | | | | | | +--------+ + + + + | 02/27/ | Appointment | Radiology | Dhara | | | 2019 | | | [address] | | | | | | [address] [place], | | | | | | [place] [address] | | | | | | [phone] | | | | | | | [...] ST | | | | | | [place] [address] | | | | | | [phone] | | | | | | | [...] [place] | | | | | | [address] | | | | | | [phone] | | | | | | | [...] | | | | | [place] [address] | | | | | | [phone] | | | | | | | | | | | | Azul Yeboah, | | | | | | [address] | | | | | | [place] | | | | | | [place] [address] | | | | | | [phone] | | | | | | | [...] | | | | | | [place] [address] | | | | | | [phone] | | | | | | | | +--------+ + + + + documented as of this encounter Visit Diagnoses Not on filedocumented in this encounter"
--- OUTSIDE RECORDS SUMMARY | ~2020-02-18 | XMS | Encounter Summary ---
Demographics + + + | Address | [address] | | | [place] [address] | + + + | Home Phone [...] Team Providers + +------+ + | Care Installation Specialist Name | Role | Phone | [...] Erika Ernst, | Lab Order | | 2020 | | [facility] | DO [address] | | | | | MEDICAL CLINIC [address] | [place] [address] | | | | | [address] [place], | [phone] | | | | | [place] [address] | | | | | | [phone] | | | +--------+ + + + [...] | | | | | [place] [address] | | | | | | [phone] | | | | | | | | | | | | Julia Fisher, | | | | | | PT | | +--------+ + + + + | 02/18/ | Appointment | Rehabilitation | Erika Ernst, | | | 2019 | | | DO [address] | | | | | | [place] [address] | | | | | | [phone] | | | | | | | | | | | | [facility] OT | | +--------+ + + + + | 02/25/ | Office | Primary Care | Erika Ernst, | | | 2019 | Visit | | DO [address] | | | | | | [place] [address] | | | | | | [phone] | | | | | | | [...] | | | | | [place] [address] | | | | | | [phone] | | | | | | | | +--------+ + + + + | 02/27/ | Appointment | Radiology | Dhara, | | | 2019 | | | [address] | | | | | | 4TH [facility], | | | | | | [place] [address] | | | | | | [phone] | | | | | | | | +--------+ + + + + | 03/04/ | Appointment | Rehabilitation | Genesis Ayon OT | | | 2019 | | | | | +--------+ + + + + | 03/09/ | Office | Orthopedic Surgery | Jeffrey Gandhi, | | | 2019 | Visit | | [place] [address] | | | | | | [place] [address] | | | | | | [phone] | | | | | | | [...] [place] | | | | | | [address] | | | | | | [phone] | | | | | | | [...] | | | | | [place] [address] | | | | | | [phone] | | | | | | | | | | | | Azul Yeboah, | | | | | | MD [address] | | | | | | [place] | | | | | | [place] [address] | | | | | | [phone] | | | | | | | [...] | | | | | | [place] [address] | | | | | | [phone] | | | | | | | | +--------+ + + + + documented as of this encounter Visit Diagnoses Not on filedocumented in this encounter"
--- OUTSIDE RECORDS SUMMARY | ~2020-02-18 | XMS | Encounter Summary ---
Demographics + + + | Address | [address] | | | [place] [address] | + + + | Home Phone [...] Team Providers + +------+ + | Care Reed Man Name | Role | Phone | + +------+ + PCP | Unavailable | + +------+ + Encounter Details +--------+ + + + + | Date | Type | Department | Care Team | Description | +--------+ + + + + | 06/14/ | [facility] | Lb Mirza | | | 2017 | Encounter | [facility] | MD [address] | | | | | CENTER [address] | [facility] | | | | | DR [place] | [place] [address] | | | | | [address] | [phone] | | | | | [phone] | | | +--------+ + + + [...] | | | | | [place] [address] | | | | | | [phone] | | | | | | | | | | | | Julia Fisher, | | | | | | PT | | +--------+ + + + + | 02/18/ | Appointment | Rehabilitation | Erika Ernst, | | | 2019 | | | DO [address] | | | | | | [place] [address] | | | | | | [phone] | | | | | | | | | | | | Genesis Ayon, OT | | +--------+ + + + + | 02/25/ | Office | Primary Care | Erika Ernst, | | | 2019 | Visit | | DO [address] | | | | | | [place] [address] | | | | | | [phone] | | | | | | | [...] | | | | | [place] [address] | | | | | | [phone] | | | | | | | | +--------+ + + + + | 02/27/ | Appointment | Radiology | Dhara, | | | 2019 | | | [address] | | | | | | [facility] | | | | | | [place] [address] | | | | | | [phone] | | | | | | | | +--------+ + + + + | 03/04/ | Appointment | Rehabilitation | Genesis Ayon OT | | 2019 | | | | | +--------+ + + + + | 03/09/ | Office | Orthopedic Surgery | Jeffrey Gandhi, | | 2019 | Visit | | [address] [facility] | | | | | | [place] [address] | | | | | | [phone] | | | | | | | [...] [place] | | | | | | [address] | | | | | | [phone] | | | | | | | [...] | | | | | [place] [address] | | | | | | [phone] | | | | | | | | | | | | Azul Yeboah, | | | | | | [address] | | | | | | [place] | | | | | | [place] [address] | | | | | | [phone] | | | | | | | [...] | | | | | | [place] [address] | | | | | | [phone] | | | | | | | | +--------+ + + + + documented as of this encounter Visit Diagnoses Not on filedocumented in this encounter"
--- OUTSIDE RECORDS SUMMARY | ~2020-02-18 | XMS | Encounter Summary ---
Demographics + + + | Address | [address] | | | [place] [address] | + + + | Home Phone [...] Providers + +------+ + | Care Senior Media Buyer Name | Role | Phone | + [...] 01/01/ | Telephone | [place] [facility] | Alma Rosa Hylton, | Advice Only | | 2019 | | [facility] | RN | | | | | [facility] [address] | | | | | | 4TH [facility] [place], | | | | | | [place] [address] | | | | | | [phone] | | | +--------+ + + + [...] | | | | | [place] [address] | | | | | | [phone] | | | | | | | | | | | | Julia Fisher, | | | | | | PT | | +--------+ + + + + | 02/18/ | Appointment | Rehabilitation | Erika Ernts, | | | 2019 | | | DO [address] | | | | | | [place] [address] | | | | | | [phone] | | | | | | | | | | | | [facility]yon OT | | +--------+ + + + + | 02/25/ | Office | Primary Care | Erika Ernst, | | | 2019 | Visit | | DO [address] | | | | | | [place] [address] | | | | | | [phone] | | | | | | | [...] | | | | | [place] [address] | | | | | | [phone] | | | | | | | | +--------+ + + + + | 02/27/ | Appointment | Radiology | Dhara, | | | 2019 | | | [address] | | | | | | 4TH [facility] [place], | | | | | | [place] [address] | | | | | | [phone] | | | | | | | [...] [place] | | | | | | [place] [address] | | | | | | [phone] | | | | | | | [...] [place] | | | | | | [address] | | | | | | [phone] | | | | | | | [...] | | | | | [place] [address] | | | | | | [phone] | | | | | | | | | | | | Azul Yeboah, | | | | | | MD [address] | | | | | | [place] | | | | | | [place] [address] | | | | | | [phone] | | | | | | | | +--------+ + + + + | 04/08/ | Appointment | Nutrition | Janel Webster | | | 2019 | | | [address], [address] | | +--------+ + + + + | 05/21/ | Office | Neurology | Dhara, | | | 2019 | Visit | | Karyanne, COFFEE FARMER [address] | | | | | | [address] [place], | | | | | | [place] [address] | | | | | | [phone] | | | | | | | | +--------+ + + + + documented as of this encounter Visit Diagnoses Not on filedocumented in this encounter"
--- OUTSIDE RECORDS SUMMARY | ~2020-02-18 | XMS | Encounter Summary ---
Demographics + + + | Address | [address] | | | [place] [address] | + + + | Home Phone [...] Team Providers + +------+ + | Care Standards Engineer Name | Role | Phone | [...] | MEDICAL CLINIC [address] | [place] [address] | (Primary Dx); | | | | [address] [place], | [phone] | Depression, | | | | [place] [address] | | unspecified | | | | [phone] | | depression type; | | | [...] week and went to the ER in [place] and had a steroid injection. She is [...] | | | | | [place] [address] | | | | | | [phone] | | | | | | | | | | | | Julia Fisher, | | | | | | PT | | +--------+ + + + + | 02/18/ | Appointment | Rehabilitation | Erika Ernst, | | | 2019 | | | DO [address] | | | | | | [place] [address] | | | | | | [phone] | | | | | | | | | | | | Genesis Ayon, OT | | +--------+ + + + + | 02/25/ | Office | Primary Care | Erika Ernst, | | | 2019 | Visit | | DO [address] | | | | | | [place] [address] | | | | | | [phone] | | | | | | | [...] | | | | | [place] [address] | | | | | | [phone] | | | | | | | | +--------+ + + + + | 02/27/ | Appointment | Radiology | Dhara, | | | 2019 | | | [address] | | | | | | [address] [place], | | | | | | [place] [address] | | | | | | [phone] | | | | | | | [...] HOSPITAL | | | | | | [place] [address] | | | | | | [phone] | | | | | | | [...] [place] | | | | | | [address] | | | | | | [phone] | | | | | | | [...] | | | | | [place] [address] | | | | | | [phone] | | | | | | | | | | | | Azul Yeboah, | | | | | | MD [address] | | | | | | [place] | | | | | | [place] [address] | | | | | | [phone] | | | | | | | [...] | | | | | | [place] [address] | | | | | | [phone] | | | | | | | [...]
--- OUTSIDE RECORDS SUMMARY | ~2020-02-18 | XMS | Encounter Summary ---
Demographics + + + | Address | [address] | | | [place] [address] | + + + | Home Phone [...] Team Providers + +------+ + | Care Real Estate Office Supervisor Name | Role | Phone | [...] | | | of left | [place] [address] | [address] | | | | | ankle, | Phone: | Phone: | | | | | subsequent | [phone] | [phone] | | | | | encounter | Fax: | Fax: | | | | | Procedures | [phone] | [phone] | | | | | MRI Ankle [...] | | | of left | [place] [address] | [address] | | | | | ankle, | Phone: | Phone: | | | | | subsequent | [phone] | [phone] | | | | | encounter | Fax: | Fax: | | | | | Procedures | [phone] | [phone] | | | | | MRI Ankle [...] | [address] | [place] [address] | ligament of left | | | | [place], [place] | [phone] | ankle, subsequent | | | | [address] | | encounter | | | | [phone] | | | +--------+ + + + [...] | 19 | 9 | | [facility]) | | | | | | | [...] | | | | | [place] [address] | | | | | | [phone] | | | | | | | | | | | | Julia Fisher, | | | | | | PT | | +--------+ + + + + | 02/18/ | Appointment | Rehabilitation | Erika Ernst, | | | 2019 | | | DO [address] | | | | | | [place] [address] | | | | | | [phone] | | | | | | | | | | | | Genesis Aoyn OT | | +--------+ + + + + | 02/25/ | Office | Primary Care | Erika Ernst, | | | 2019 | Visit | | DO [address] | | | | | | [place] [address] | | | | | | [phone] | | | | | | | [...] | | | | | [place] [address] | | | | | | [phone] | | | | | | | | +--------+ + + + + | 02/27/ | Appointment | Radiology | Dhara, | | | 2019 | | | [address] | | | | | | [address] [place], | | | | | | [place] [address] | | | | | | [phone] | | | | | | | | +--------+ + + + + | 03/04/ | Appointment | Rehabilitation | Genesis Ayon OT | | | 2019 | | | | | +--------+ + + + + | 03/09/ | Office | Orthopedic Surgery | Jeffrey Gandhi, | | | 2019 | Visit | | [address] | | | | | | [place] [address] | | | | | | [phone] | | | | | | | [...] [place] | | | | | | [address] | | | | | | [phone] | | | | | | | [...] | | | | | [place], [place] [address] | | | | | | [phone] | | | | | | | | | | | | Azul Yeboah, | | | | | | MD [address] | | | | | | [place] | | | | | | [place] [address] | | | | | | [phone] | | | | | | | [...] | | | | | | [place] [address] | | | | | | [phone] | | | | | | | [...]
--- OUTSIDE RECORDS SUMMARY | ~2020-02-18 | XMS | Encounter Summary ---
Demographics + + + | Address | [address] | | | [place] [address] | + + + | Home Phone [...] Team Providers + +------+ + | Care Elevator Repairer Apprentice Name | Role | Phone | + +------+ + | Erika Ernst DO | PCP | | + +------+ + Encounter Details +--------+ + + + + | Date | Type | Department | Care Team | Description | +--------+ + + + + | 02/26/ | Orders Only | [place] [facility] | Erika Ernst, | Lymphocytosis | | 2019 | | [facility] | DO [address] | (Primary Dx) | | | | MEDICAL [facility] [address] | [facility] [address] | | | | | [address] [place], | [phone] | | | | | [place] [address] | | | | | | [phone] | | | +--------+ + + + [...] 2019 | | | DO [address] | | | | | | [place] [address] | | | | | | [phone] | | | | | | | | | | | | Julia Fisher, | | | | | | PT | | +--------+ + + + + | 02/18/ | Appointment | Rehabilitation | Erika Ernst, | | | 2019 | | | DO [address] | | | | | | [place] [address] | | | | | | [phone] | | | | | | | | | | | | Genesis Ayon OT | | +--------+ + + + + | 02/25/ | Office | Primary Care | Erika Ernst, | | | 2019 | Visit | | DO [address] | | | | | | [place] [address] | | | | | | [phone] | | | | | | | [...] | | | | | | [place] [address] | | | | | | [phone] | | | | | | | | +--------+ + + + + | 02/27/ | Appointment | Radiology | Dhara, | | | 2019 | | | [address] | | | | | | [address] [facility] | | | | | | [place] [address] | | | | | | [phone] | | | | | | | [...] | | | | | [place], [place] [address] | | | | | | [phone] | | | | | | | [...] [place] | | | | | | [address] | | | | | | [phone] | | | | | | | [...] | | | | | [place] [address] | | | | | | [phone] | | | | | | | | | | | | Azul Yeboah, | | | | | | MD [address] | | | | | | [place] | | | | | | [place] [address] | | | | | | [phone] | | | | | | | [...] | | | | | | [place] [address] | | | | | | [phone] | | | | | | | | +--------+ + + + + documented as of this encounter Results CBC with Differential (02/28/2019 9:47 AM PDT) + + + + + + | Component | Value | Ref Range | Performed | Pathologist | | | | | At | Signature | + + + + + + | WBC | 9.5 | 4.3 - 10.4 K/uL | [place] | | | | | | [facility] | | | | [facility] | | | | | | [facility] | | + + + + + + | RBC | 4.16 | 4.12 - 5.30 | [place] | | | | | M/uL | [facility] | | | [facility] | | | | | [facility] | | | | | | [facility] | | + + + + + + | Hemoglobin | 11.9 (L) | 12.4 - 15.7 | [place] | | | | | g/dL | [facility] | | | | | [facility] | | | | | | [facility] | | | | | | [facility] | | + + + + + + | Hematocrit | 34.6 (L) | 37.7 - 47.0 % | [place] | | | | | | [facility] | | | | [facility] | | | | | [facility] | | | | | | [facility] | | + + + + + + | MCV | 83.2 | 82.0 - 97.0 fL | [place] | | | | | | [facility] | | [facility] | | | | | [facility] | | | | | | [facility] | | + + + + + + | MCH | 28.6 | 27.1 - 32.3 pg | [place] | | | | | | [facility] | [facility] | | | | | [facility] | | | | | | [facility] | | + + + + + + | MCHC | 34.4 | 32.0 - 36.9 | [place] | | | | | g/dL | [facility] | | | [facility] | | | | | [facility] | | | | | | [facility] | | + + + + + + | RDW-CV | 15.7 | 0.0 - 17.0 % | [facility] | | | | | | [facility] | [facility] | | [facility] | | + + + + + + | Platelet | 309 | 150 - 450 K/uL | [facility] | | | Count | | | [facility] | [facility] | | | | | | [facility] | | + + + + + + | MPV | 7.8 (L) | 9.4 - 12.3 fL | [facility] | | | | | | [facility] | [facility] | [facility] | | + + + + + + | % | 56.6 | 42.0 - 76.0 % | [facility] | | | Neutrophils | | | [facility] | | | | | | [facility] | | + + + + + + | % | 35.5 | 20.0 - 40.0 % | [facility] | | | Lymphocytes | | | [facility] | | | | | | [facility] | | + + + + + + | % Monocytes | 6.7 | 3.0 - 13.0 % | [facility] | | | | | | [facility] | [facility] | | + + + + + + | % | 1.1 | 0.0 - 7.0 % | [facility] | | | Eosinophils | | | [facility] | [facility] | | | | | [facility] | | + + + + + + | % Basophils | 0.1 | 0.0 - 2.0 % | [facility] | | | | | | [facility] | | | | | [facility] | | + + + + + + | Absolute | 5.40 | 2.50 - 8.50 | [facility] | | | Neutrophils | | K/uL | [facility] | [facility] | | | | | | [facility] | | + + + + + + | Absolute | 3.40 | 1.00 - 3.80 | [facility] | [...] + + | [facility] | [address] | [place] | [phone] | | [facility] | | [id number] | | | [facility] | | | | + + + + + documented in this encounter Visit Diagnoses + + | Diagnosis | + + | Lymphocytosis - Primary Lymphocytosis (symptomatic) | + + documented in this encounter"
--- OUTSIDE RECORDS SUMMARY | ~2020-02-18 | XMS | Encounter Summary ---
Demographics + + + | Address | [address] | | | [place] [address] | + + + | Home Phone [...] Team Providers + +------+ + | Care Compliance Auditor Name | Role | Phone | + [...] + + + + + + | Canceled | Specialty | Hematology / | Diagnoses | Alberto, | Miya, | | | Services | Hematology | | DWAINE Oconnor | [facility] | | | Required | and Oncology | Leukocytosis | [address] | MD [place] | | | | | , | [place], | [address] | | | | | unspecified | [place] [address] | [place], | | | | | type | Phone: | [place] [address] | | | | | | [phone] | Phone: | | | | | | Fax: | [phone] | | | | | | [phone] | Fax: | | | | | | | [phone] | + + + + + + + Encounter Details +--------+ + + + + | Date | Type | Department | Care Team | Description | +--------+ + + + + | 02/20/ | Orders Only | [facility] [facility] | Anastasia Alberto, | Leukocytosis, | | 2019 | | [facility] | MAIL INSERTER [address] [place] | unspecified type | | | | [facility] | [place] [address] | (Primary Dx) | | | [address] [place], | [phone] | | | | | [place] [address] | | | | | | [phone] | | | +--------+ + + + [...] | 2019 | | | DO [address] [place] | | | | | | [place] [address] | | | | | | [phone] | | | | | | | | | | | | Julia Fisher, | | | | | | PT | | +--------+ + + + + | 02/18/ | Appointment | Rehabilitation | Erika Ernst, | | | 2019 | | | DO [address] [place] | | | | | | [place] [address] | | | | | | [phone] | | | | | | | | | | | | Genesis Ayon OT | | +--------+ + + + + | 02/25/ | Office | Primary Care | Erika Ernst, | | | 2019 | Visit | | DO [address] [place] | | | | | | [place] [address] | | | | | | [phone] | | | | | | | [...] | | | | | [place] [address] | | | | | | [phone] | | | | | | | | +--------+ + + + + | 02/27/ | Appointment | Radiology | Dhara, | | | 2019 | | | DWAINE Ross [address] | | | | | | [facility]TH [facility], | | | | | | [place] [address] | | | | | | [phone] | | | | | | | [...] | | | | | [place] [address] | | | | | | [phone] | | | | | | | [...] [place] | | | | | | [address] | | | | | | [phone] | | | | | | | [...] | | | | | [place] [address] | | | | | | [phone] | | | | | | | | | | | | Azul Yeboah, | | | | | | MD [address] | | | | | | [place] | | | | | | [place] [address] | | | | | | [phone] | | | | | | | [...] | | | | | | [place] [address] | | | | | | [phone] | | | | | | | | +--------+ + + + + + + +--------+ + + | Name | Type | Priori | Associated Diagnoses | Order Schedule | | | | ty | | | + + +--------+ + + | Hematology, External | Outpatient | Routin | Leukocytosis, | Ordered: 02/20/2019 | | - AMB Referral | Referral | e | unspecified type | | + + +--------+ + + documented as of this encounter Visit Diagnoses + + | Diagnosis | + + | Leukocytosis, unspecified type - Primary | + + documented in this encounter"
--- OUTSIDE RECORDS SUMMARY | ~2020-02-18 | XMS | Encounter Summary ---
Demographics + + + | Address | [address] | | | [place] [address] | + + + | Home Phone [...] Providers + +------+ + | Care Manager Investigations Name | Role | Phone | + [...] | | | of left | [place] [address] | [place] [address] | | | | | ankle, | Phone: | Phone: | | | | | initial | [phone] | [phone] | | | | | encounter | Fax: | Fax: | | | | | Procedures | [phone] | [phone] | | | | | PT TREAT | | | +--------+--------+ + + + + Encounter Details +--------+ + + + + | Date | Type | Department | Care Team | Description | +--------+ + + + + | 10/05/ | Hospital | [place] [facility] | Erika Ernst, | Sprain of left | | 2019 | Encounter | HOSPITAL THERAPY PT | DO [address] [place] | ankle, subsequent | | | | [address] [place] | [place] [address] | encounter (Primary | | | | [place], [place] | [phone] | Dx) | | | | [address] | | | | | | [phone] | Nick Barrios I, PT | | [...] Progress Notes Nick Barrios I, PT - 10/05/2018 3:57 PM PSTFormatting of this note might be different fro m the original. [facility] PT [address] [place] [address] Physical Therapy Daily Treatment Note Date: 10/05/2018 Patient Information Patient Name: Andrea Shu Date of : 1990 Age: 28 y.o. Encounter Diagnoses Code Name Primary? S93.402D Sprain of left ankle, subsequent encounter Yes Date of Onset: 06/11/2018 Referring Provider: Erika Ernst DO Objective Pain Assessment: Pain Rating Pre Assessment: 3 Pain Rating Post Assessment: 3 Location: L medial ankle Standardized Tests: Lower Extremity Functional Scale (LEFS) Lower Extremity Functional Scale Goal: 75 Lower Extremity Functional Scale Goal Status: Ongoing Today's Treatment Patient Name: Andrea Suh/: 1990/ Start Time: 1300 Stop time: 1349 Duration: 49 minutes Timed Treatment Codes: 42 minutes # of PT Visits to Date: 17 Visit Summary: S: I feel good today; some pain on the inside of my ankle. I had a lot of so reness in my whole left leg after last session with you. Feels fine now. I have returned to working part-time since last visit. I have been doing some of my home exercises. A: Patient required moderate verbal and visual cueing throughout session in order to improve form of e xercises. Demonstrated improved single leg balance as evidenced by fewer stepping strategies /use of grab bars for stabilization during SLS. Patient has not experienced much pain relief with physical therapy. Upcoming discharge likely appropriate due to lack of improvement wit h pain symptoms. Next Visit Information: Progress LE strength and balance exercises with steps, bosu, bridge progression, quantum, leg press, lunges. Progress aquatic exercise as tolerated. Therapy Interventions HEP: NEW: Standing lunges 3x10 progressing to 15 each LE 3x/wk, ONGOING: SL heel raise on step 3x15 3x/wk, Tandem gait as tolerated 4x/day, supine bridges 3x10 progressing to 15 4x /wk // Sidelying hip abduction 3x10 progressing to 15 4x/wk // Tandem stance 2x60 second hol ds each foot position 1x/day // Using RTB in door jam rather than holding onto with hands. D iscontinue PF with theraband in favor of SL heel raise with GLASS CUTTER. ONGOING: SLS on even surfac e 3x30 seconds 1x/day // Double leg heel raise 3x10 3x/wk // forward/lateral step ups on 8" step 3x10 3x/wk each // standing achilles stretch 3x30 seconds 1x/day. // 4 way ankle PRE y ellow theraband 3x10 each direction 3x/wk. // Ankle inversion/eversion 3x10 progressing to 2 0 1x/day // ankle ABC's 3x/day. // Ankle pumps 3x10 progressing to 20 repetitions 1x/day // ankle circles 3x10 progressing to 20 repetitions each direction 1x/day PT INTERVENTION 1: TE - (34 minutes) TM ambulation 10 minutes @ 1.1 mph, half lunges while holding grab bar for support 2x10 each LE foot position; required moderate verbal/visual cu es to perform correctly, Yellow TB ankle PRE dorsiflexion/eversion/inversion 1x15 each, Gre en TB 1x15 each L LE, Double heel raises 1x20, Single LE heel raise (L LE) 2x15, addition al time required for rest between exercises, patient required cueing to perform exercises co rrectly. PT INTERVENTION 2: NMR (8 minutes) SLS 3x1 minute SBA minimal use of stepping strategy/grab bar to maintain balance, additional time required for rest between exercises and cueing fo r correct form of exercise Assessment Rehabilitation potential: [...] at 3/10 today Electronically signed by: Nick Barrios PT, 10/05/2018 15:57 Patient Name: Andrea Suh/: 1990/ documented in [...] | | | | | [place] [address] | | | | | | [phone] | | | | | | | | | | | | Julia Fisher, | | | | | | PT | | +--------+ + + + + | 02/18/ | Appointment | Rehabilitation | Erika Ernst, | | | 2019 | | | DO [address] [place] | | | | | | [place] [address] | | | | | | [phone] | | | | | | | | | | | | Genesis Ayon OT | | +--------+ + + + + | 02/25/ | Office | Primary Care | Erika Ernst, | | | 2019 | Visit | | DO [address] [place] [address] | | | | | | [place] [address] | | | | | | [phone] | | | | | | | [...] | | | | | [place] [address] | | | | | | [phone] | | | | | | | | +--------+ + + + + | 02/27/ | Appointment | Radiology | Dhara, | | 2019 | | | DWAINE Ross [address] | | | | | [address] [place], | | | | | | [place] [address] | | | | | | [phone] | | | | | | | | +--------+ + + + + | 03/04/ | Appointment | Rehabilitation | Genesis Ayon OT | | | 2019 | | | | | +--------+ + + + + | 03/09/ | Office | Orthopedic Surgery | Jeffrey Gandhi, | | | 2019 | Visit | | [address] | | | | | | [place] [address] | | | | | | [phone] | | | | | | | [...] [place] | | | | | | [address] | | | | | | [phone] | | | | | | | [...] | | | | | [place] [address] | | | | | | [phone] | | | | | | | | | | | | Azul Yeboah, | | | | | | MD [address] | | | | | | [place] | | | | | | [place] [address] | | | | | | [phone] | | | | | | | [...] [address] | | | | | | [phone] | | | | | | | | +--------+ + + + + documented as of this encounter Visit Diagnoses + + | Diagnosis | + + | Sprain of left ankle, subsequent encounter - Primary | + + documented in this encounter
--- OUTSIDE RECORDS SUMMARY | ~2020-02-18 | XMS | Encounter Summary ---
Demographics + + + | Address | [address] | | | [place] [address] | + + + | Home Phone [...] Providers + +------+ + | Care Production Metal Sprayer Name | Role | Phone | [...] | [facility] [address] | [place] [address] | Dx); Right hand | | | | [address] [place], | [phone] | pain; Foot pain, | | | | [place] [address] | | left; Tongue sore; | | | | [phone] | | Anemia, unspecified | | | [...] tripped on [facility] on 05/10 and went to ER. Xrays [...] | | | | | [place] [address] | | | | | | [phone] | | | | | | | | | | | | Julia Fisher, | | | | | | PT | | +--------+ + + + + | 02/18/ | Appointment | Rehabilitation | Erika Ernst, | 2019 | | | DO [address] [place] | | | | | | [place] [address] | | | | | | [phone] | | | | | | | | | | | | Genesis Ayon, OT | | +--------+ + + + + | 02/25/ | Office | Primary Care | Erika Ernst, | | | 2019 | Visit | | DO [address] [place] [address] | | | | | | [place] [address] | | | | | | [phone] | | | | | | | [...] | | | | | [place] [address] | | | | | | [phone] | | | | | | | | +--------+ + + + + | 02/27/ | Appointment | Radiology | Dhara, | | | 2019 | | | DWAINE Ross [address] | | | | | [address] [place], | | | | | | [place] [address] | | | | | | [phone] | | | | | | | [...] [place] | | | | | | [place] [address] | | | | | | [phone] | | | | | | | [...] [place] | | | | | | [address] | | | | | | [phone] | | | | | | | [...] | | | | | [place] [address] | | | | | | [phone] | | | | | | | | | | | | Azul Yeboah, | | | | | | MD [address] | | | | | | [place] | | | | | | [place] [address] | | | | | | [phone] | | | | | | | [...] | | | | | | [place] [address] | | | | | | [phone] | | | | | | | [...] + + | [place] [facility] | [address] | [place] | [phone] | | H[facility] | | [address] | | + + + + + [...] + + | [place] [facility] | [address] | [place] | [phone] | | H[facility]ITAL [facility] | | [address] | | + + + + + [...] + + | [place] [facility] | [address] | [place] | [phone] | | HOS[facility]ITAL [facility]ORY | | [address] | | + + + + + [...] + + | [place] [facility] | [address] | [place] | [phone] | | HOS[facility]ITAL [facility] | | [address] | | + + + + + [...]
--- OUTSIDE RECORDS SUMMARY | ~2020-02-18 | XMS | Encounter Summary ---
Demographics + + + | Address | [address] | | | [place] [address] | + + + | Home Phone [...] Providers + +------+ + | Care Acid Regenerator Name | Role | Phone | + [...] Order | | 2019 | | [facility] | DO [address] | | | | | [facility]ICAL CL[facility] [address] | [place] [address] | | | | | [address] [place], | [phone] | | | | | [place] [address] | | | | | | [phone] | | | +--------+ + + + [...] | | | | | [place] [address] | | | | | | [phone] | | | | | | | | | | | | Julia Fisher, | | | | | | PT | | +--------+ + + + + | 02/18/ | Appointment | Rehabilitation | Erika Ernst, | | | 2019 | | | DO [address] [place] | | | | | | [place] [address] | | | | | | [phone] | | | | | | | | | | | | Genesis Ayon OT | | +--------+ + + + + | 02/25/ | Office | Primary Care | Erika Ernst, | | | 2019 | Visit | | DO [address] [place] | | | | | | [place] [address] | | | | | | [phone] | | | | | | | [...] | | | | | | [place] [address] | | | | | | [phone] | | | | | | | | +--------+ + + + + | 02/27/ | Appointment | Radiology | Dhara, | | | 2019 | | | DWAINE Ross [address] | | | | | | 4TH [facility], | | | | | | [place] [address] | | | | | | [phone] | | | | | | | | +--------+ + + + + | 03/04/ | Appointment | Rehabilitation | Genesis Ayon OT | | | 2019 | | | | | +--------+ + + + + | 03/09/ | Office | Orthopedic Surgery | Jeffrey Gandhi, | | | 2019 | Visit | | ID [address] | | | | | | [place] [address] | | | | | | [phone] | | | | | | | [...] [place] | | | | | | [address] | | | | | | [phone] | | | | | | | [...] | | | | | [place] [address] | | | | | | [phone] | | | | | | | | | | | | Azul Yeboah, | | | | | | MD [address] | | | | | | [place] | | | | | | [place] [address] | | | | | | [phone] | | | | | | | [...] | | | | | | [place] [address] | | | | | | [phone] | | | | | | | | +--------+ + + + + documented as of this encounter Visit Diagnoses Not on filedocumented in this encounter"
--- OUTSIDE RECORDS SUMMARY | ~2020-02-18 | XMS | Encounter Summary ---
Demographics + + + | Address | [address] | | | [place] [address] | + + + | Home Phone [...] Team Providers + +------+ + | Care Inspector Filter Tip Name | Role | Phone | + +------+ + PCP | Unavailable | + +------+ + Encounter Details +--------+ + + + + | Date | Type | Department | Care Team | Description | +--------+ + + + + | 02/23/ | Hospital | [place] [facility] | Camille Bush | | | 2015 | Encounter | HOSPITAL NURSERY | MCKENZIE Matt [address] | | | | | [address] [place] | 4th [facility], | | | | | [place], [place] | [place] [address] | | | | | [address] | [phone] | | | | | [phone] | | | +--------+ + + + [...] | | 2019 | | | DO [address] [place] [address] | | | | | | [place] [address] | | | | | | [phone] | | | | | | | | | | | | Julia Fisher, | | | | | | PT | | +--------+ + + + + | 02/18/ | Appointment | Rehabilitation | Erika Ernst, | | | 2019 | | | DO [address] [place] | | | | | | [place] [address] | | | | | | [phone] | | | | | | | | | | | | Genesis Ayon, SUSAN | | +--------+ + + + + | 02/25/ | Office | Primary Care | Erika Ernst, | | | 2019 | Visit | | DO [address] [place] | | | | | | [place] [address] | | | | | | [phone] | | | | | | | [...] | | | | | [place] [address] | | | | | | [phone] | | | | | | | | +--------+ + + + + | 02/27/ | Appointment | Radiology | Dhara, | | | 2019 | | | DWAINE Ross [address] | | | | | | [address]TH [place], | | | | | | [place] [address] | | | | | | [phone] | | | | | | | [...] | | | | | [place] [address] | | | | | | [phone] | | | | | | | [...] [place] | | | | | | [address] | | | | | | [phone] | | | | | | | [...] [address] | | | | | | [phone] | | | | | | | | | | | | Azul Yeboah, | | | | | | MD [address] | | | | | | [place] | | | | | | [place] [address] | | | | | | [phone] | | | | | | | [...] | | | | | | [place] [address] | | | | | | [phone] | | | | | | | | +--------+ + + + + documented as of this encounter Visit Diagnoses Not on filedocumented in this encounter"
--- OUTSIDE RECORDS SUMMARY | ~2020-02-18 | XMS | Encounter Summary ---
Demographics + + + | Address | [address] | | | [place] [address] | + + + | Home Phone [...] + + + | Author | [facility] | | | and [place] | + + + | Organization | [facility] | | | [...] + +------+ + | Care Freight Car Cleaner Name | Role | Phone | + +------+ + | Erika Ernst DO | PCP | | + +------+ + Reason for Visit + + + | Reason | Comments | + + + | Medication Refill | | + + + | Medication Refill | | + + + Encounter Details +--------+--------+ + + + | Date | Type | Department | Care Team | Description | +--------+--------+ + + + | 12/24/ | Refill | [facility] [facility] | Emily Mittal, DPM | Medication Refill; | | 2018 | | HOSPITAL POD[facility]RY | [address] [place] | Medication Refill | | | | [address] [place] [address] | [place], [place] | | | | | [place], [place] | [address] | | | | | [address] | | | | | | [phone] | | | +--------+--------+ + + + [...] 2019 | | | DO [address] | | | | | | [place] [address] | | | | | | [phone] | | | | | | | | | | | | Julia Fisher, | | | | | | PT | | +--------+ + + + + | 02/18/ | Appointment | Rehabilitation | Erika Ernst, | | | 2019 | | | DO [address] | | | | | | [place] [address] | | | | | | [phone] | | | | | | | | | | | | Genesis Ayon OT | | +--------+ + + + + | 02/25/ | Office | Primary Care | Erika Ernst, | | | 2019 | Visit | | DO [address] [place] | | | | | | [place] [address] | | | | | | [phone] | | | | | | | [...] | | | | | [place] [address] | | | | | | [phone] | | | | | | | | +--------+ + + + + | 02/27/ | Appointment | Radiology | Dhara, | | | 2019 | | | DWAINE Ross [address] | | | | | | 4TH [facility], | | | | | | [place] [address] | | | | | | [phone] | | | | | | | | +--------+ + + + + | 03/04/ | Appointment | Rehabilitation | Genesis Ayon OT | | | 2019 | | | | | +--------+ + + + + | 03/09/ | Office | Orthopedic Surgery | Jeffrey Gandhi, | | | 2019 | Visit | | [address] | | | | | | [place] [address] | | | | | | [phone] | | | | | | | [...] [place] | | | | | | [address] | | | | | | [phone] | | | | | | | [...] | | | | | [place] [address] | | | | | | [phone] | | | | | | | | | | | | Azul Yeboah, | | | | | | MD [address] | | | | | | [place] | | | | | | [place] [address] | | | | | | [phone] | | | | | | | [...] | | | | | | [place] [address] | | | | | | [phone] | | | | | | | | +--------+ + + + + documented as of this encounter Visit Diagnoses Not on filedocumented in this encounter"
--- OUTSIDE RECORDS SUMMARY | ~2020-02-18 | XMS | Encounter Summary ---
Demographics + + + | Address | [address] | | | [place] [address] | + + + | Home Phone [...] Team Providers + +------+ + | Care Police Reserves Commander Name | Role | Phone | + +------+ + PCP | Unavailable | + +------+ + Encounter Details +--------+ + + + + | Date | Type | Department | Care Team | Description | +--------+ + + + + | 09/21/ | [facility] | Heike Rodriguez, | | | 2013 | Encounter | HOSPITAL EMERGENCY | [facility] [address] | | | | | CENTER [address] | [place] | | | | | [place] | [address] | | | | | [address] | | | | | | [phone] | | | +--------+ + + + [...] | | | | | [place] [address] | | | | | | [phone] | | | | | | | | | | | | Julia Fisher, | | | | | | PT | | +--------+ + + + + | 02/18/ | Appointment | Rehabilitation | Erika Ernst, | | | 2019 | | | DO [address] [place] | | | | | | [place] [address] | | | | | | [phone] | | | | | | | | | | | | Genesis Ayon, OT | | +--------+ + + + + | 02/25/ | Office | Primary Care | Erika Ernst, | | | 2019 | Visit | | DO [address] [place] | | | | | | [place] [address] | | | | | | [phone] | | | | | | | [...] | | | | | [place] [address] | | | | | | [phone] | | | | | | | | +--------+ + + + + | 02/27/ | Appointment | Radiology | Dhara, | | | 2019 | | | DWAINE [address] | | | | | | 4TH [facility], | | | | | | [place] [address] | | | | | | [phone] | | | | | | | | +--------+ + + + + | 03/04/ | Appointment | Rehabilitation | Genesis Ayon OT | | | 2019 | | | | | +--------+ + + + + | 03/09/ | Office | Orthopedic Surgery | Jeffrey Gandhi, | | 2019 | Visit | | [address] | | | | | | [place] [address] | | | | | | [phone] | | | | | | | [...] [place] | | | | | | [address] | | | | | | [phone] | | | | | | | [...] | | | | | [place] [address] | | | | | | [phone] | | | | | | | | | | | | Azul Yeboah, | | | | | | MD [address] | | | | | | [place] | | | | | | [place] [address] | | | | | | [phone] | | | | | | | [...] | | | | | | [place] [address] | | | | | | [phone] | | | | | | | | +--------+ + + + + documented as of this encounter Visit Diagnoses Not on filedocumented in this encounter"
--- OUTSIDE RECORDS SUMMARY | ~2020-02-18 | XMS | Encounter Summary ---
Demographics + + + | Address | [address] | | | [place] [address] | + + + | Home Phone [...] Team Providers + +------+ + | Care Javascript Programmer Name | Role | Phone | [...] | | | | s (de | [place], [place] | [place] [address] | | | | | quervain) | [address] | Phone: | | | | | Pain in | Phone: | [phone] | | | | | right wrist | [phone] | Fax: | | | | | Procedures | Fax: | [phone] | | | | | OT TREAT | [phone] | | +--------+--------+ + + + + Encounter Details +--------+ + + + + | Date | Type | Department | Care Team | Description | +--------+ + + + + | // | Hospital | [facility] | Jeffrey Gandhi, | Radial styloid | | 2019 | Encounter | [facility] | [address] | tenosynovitis | | | | [address] [place] | [place] [address] | (Primary Dx); Right | | | | [place], [place] | [phone] | wrist pain | | | | [address] | | | | | | [phone] | Nakia Koo OT | | +--------+ [...] | 11/26/19 | | | (VITAMIN D3) 65167 | mouth Once a week | tablet [...] + + + +---------+ + + | CELESTINA WANG 80 | | | 0 | 11/26/19 | | | MCG/ACT inhaler | | | | 19 | 9 | + + + +---------+ + + documented as of this encounter Progress Notes Nakia Koo OT - 12/03/2018 5:18 PM PST [facility] OT [address] [place] [address] Occupational Therapy Daily Treatment Note Date: 12/03/2018 Patient Information Patient Name: Andrea Suh Date of : 1990 Age: 28 y.o. History Encounter Diagnoses Code Name Primary? M65.4 Radial styloid tenosynovitis Yes M25.531 Right wrist pain Date of Onset: 07/20/2018 Referring Provider: Jeffrey Gandhi MD Objective Pain Assessment: Pain Rating Pre Assessment: 5 Location: Increased pain following work yesterday Today's Treatment Patient Name: Andrea Suh/: 1990/ Start Time: 1502 Stop time: 1540 Duration: 38 minutes Timed Treatment Codes: 25 minutes # of OT Visits: 19.11 Visit Summary: S: I hurt myself again yesterday and the pain has increased to 5/10 where it has been more like 3/10. A: Because of increased pain, pt only given manual treatment for s ymptom management. No exercises were given, despite overall goal to increase wrist strength and resilience of the wrist. Next Visit: Contiued strengtheing - check response to pain. 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 Her j ob description may be changing which would decrease the physical demands of her work, making it more appropriate for her current status. 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 10/30/2018 - REASON FOR RE-CERTIFICATION: Andrea has received 12 Occupational Therapy treatme nts since 08/07/2018 following her right wrist surgery. She has regained full AROM of the rig ht wrist but continues to have right wrist, star route mail driver and pinch weakness and significant pain (3- [...] in 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, and star route mail driver and pinch weakness in the right hand [...] ices. Electronically signed by: Nakia Koo OT, 12/03/2018 17:18 Patient Name: Andrea Henaonanci/: 1990/ documented in this enco unter Plan of Treatment +--------+ + + + + | Date | Type | Specialty | Care Team | Description | +--------+ + + + + | 02/18/ | Appointment | Rehabilitation | Erika Ernst, | | | 2019 | | | DO [address] | | | | | | [place] [address] | | | | | | [phone] | | | | | | | | | | | | Julia Fisher, | | | | | | PT | | +--------+ + + + + | 02/18/ | Appointment | Rehabilitation | Erika Ernst, | | | 2019 | | | DO [address] | | | | | | [place] [address] | | | | | | [phone] | | | | | | | | | | | | Genesis Ayon, OT | | +--------+ + + + + | 02/25/ | Office | Primary Care | Erika Ernst, | | | 2019 | Visit | | DO [address] | | | | | | [place] [address] | | | | | | [phone] | | | | | | | [...] | | | | | [place] [address] | | | | | | [phone] | | | | | | | | +--------+ + + + + | 02/27/ | Appointment | Radiology | Dhara, | | | 2019 | | | [address] | | | | [address] [place], | | | | | | [place] [address] | | | | | | [phone] | | | | | | | | +--------+ + + + + | 03/04/ | Appointment | Rehabilitation | Genesis Ayon OT | | | 2019 | | | | | +--------+ + + + + | 03/09/ | Office | Orthopedic Surgery | Jeffrey Gandhi, | | | 2019 | Visit | | [address] [facility] | | | | | | [place] [address] | | | | | | [phone] | | | | | | | [...] [place] | | | | | | [address] | | | | | | [phone] | | | | | | | [...] | | | | | [place] [address] | | | | | | [phone] | | | | | | | | | | | | Azul Yeboah, | | | | | | MD [address] | | | | | | [place] | | | | | | [place] [address] | | | | | | [phone] | | | | | | | [...] | | | | | | [place] [address] | | | | | | [phone] | | | | | | | | +--------+ + + + + documented as of this encounter Visit Diagnoses + + | Diagnosis | + + | Radial styloid tenosynovitis - Primary | + + | Right wrist pain Pain in joint, forearm | + + documented in this encounter"
--- OUTSIDE RECORDS SUMMARY | ~2020-02-18 | XMS | Encounter Summary ---
Demographics + + + | Address | [address] | | | [place] [address] | + + + | Home Phone [...] Team Providers + +------+ + | Care Grain Trimmer Name | Role | Phone | + +------+ + | Erika Ernst DO | PCP | | + +------+ + Reason for Visit + + + | Reason | Comments | + + + | Vaccines | | + + + Encounter Details +--------+ + + + + | Date | Type | Department | Care Team | Description | +--------+ + + + + | 01/28/ | Telephone | [facility] | Erika Ernst, | Vaccines | | 2019 | | [facility] | DO [address] | | | | | [facility] [address] | [place] [address] | | | | [address] [place], | [phone] | | | | | [place] [address] | | | | | | [phone] | | | +--------+ + + + [...] | | | | | [place] [address] | | | | | | [phone] | | | | | | | | | | | | Julia Fisher, | | | | | | PT | | +--------+ + + + + | 02/18/ | Appointment | Rehabilitation | Erika Ernst, | | | 2019 | | | DO [address] | | | | | | [place] [address] | | | | | | [phone] | | | | | | | | | | | | Genesis Ayon OT | | +--------+ + + + + | 02/25/ | Office | Primary Care | Erika Ernst, | | | 2019 | Visit | | DO [address] | | | | | | [place] [address] | | | | | | [phone] | | | | | | | [...] | | | | | [place] [address] | | | | | | [phone] | | | | | | | | +--------+ + + + + | 02/27/ | Appointment | Radiology | Dhara, | | | 2019 | | | [address] | | | | | [address] [place], | | | | | | [place] [address] | | | | | | [phone] | | | | | | | [...] | | | | | [place] [address] | | | | | | [phone] | | | | | | | [...] [place] | | | | | | [address] | | | | | | [phone] | | | | | | | [...] | | | | | [place] [address] | | | | | | [phone] | | | | | | | | | | | | Azul Yeboah, | | | | | | MD [address] | | | | | | [place] | | | | | | [place] [address] | | | | | | [phone] | | | | | | | [...] | | | | | | [place] [address] | | | | | | [phone] | | | | | | | | +--------+ + + + + documented as of this encounter Visit Diagnoses Not on filedocumented in this encounter"
--- OUTSIDE RECORDS SUMMARY | ~2020-02-18 | XMS | Encounter Summary ---
Demographics + + + | Address | [address] | | | [place] [address] | + + + | Home Phone [...] Team Providers + +------+ + | Care Proposal Manager Name | Role | Phone | [...] | | | | s (de | [place], [place] | [place] [address] | | | | | quervain) | [address] | Phone: | | | | | Pain in | Phone: | [phone] | | | | | right wrist | [phone] | Fax: | | | | | Procedures | Fax: | [phone] | | | | | OT TREAT | [phone] | | +--------+--------+ + + + + [...] | | [address] | [place] [address] | (Primary Dx); Right | | | | [place], [place] | [phone] | wrist pain | | | | [address] | | | | | | [phone] | Nakia Koo OT | | +--------+ [...] PST [facility] OT [address] [place] [address] Occupational Therapy Daily Treatment Note Date: 10/18/2018 [...] have some deficits in AROM, pinch and informatics specialist strength. She has returned to modified work [...] pt has made progress with her R informatics specialist strength, but is still experiencing activity limiting [...] in 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, and informatics specialist and pinch weakness in the right hand [...] | | | | | [place] [address] | | | | | | [phone] | | | | | | | | | | | | Julia Fisher, | | | | | | PT | | +--------+ + + + + | 02/18/ | Appointment | Rehabilitation | Erika Ernst, | | | 2019 | | | DO [address] | | | | | | [place] [address] | | | | | | [phone] | | | | | | | | | | | | Genesis Ayon OT | | +--------+ + + + + | 02/25/ | Office | Primary Care | Erika Ernst, | | | 2019 | Visit | | DO [address] | | | | | | [place] [address] | | | | | | [phone] | | | | | | | [...] | | | | | [place] [address] | | | | | | [phone] | | | | | | | | +--------+ + + + + | 02/27/ | Appointment | Radiology | Dhara, | | | 2019 | | | [address] | | | | | | [facility] [facility], | | | | | | [place] [address] | | | | | | [phone] | | | | | | | | +--------+ + + + + | 03/04/ | Appointment | Rehabilitation | Genesis Ayon OT | | | 2019 | | | | | +--------+ + + + + | 03/09/ | Office | Orthopedic Surgery | Jeffrey Gandhi, | | | 2019 | Visit | | [address] | | | | | | [place] [address] | | | | | | [phone] | | | | | | | [...] [place] | | | | | | [address] | | | | | | [phone] | | | | | | | [...] | | | | | [place] [address] | | | | | | [phone] | | | | | | | | | | | | Azul Yeboah, | | | | | | MD [address] | | | | | | [place] | | | | | | [place] [address] | | | | | | [phone] | | | | | | | [...] | | | | | | [place] [address] | | | | | | [phone] | | | | | | | | +--------+ + + + + documented as of this encounter Visit Diagnoses + + | Diagnosis | + + | Radial styloid tenosynovitis - Primary | + + | Right wrist pain Pain in joint, forearm | + + documented in this encounter"
--- OUTSIDE RECORDS SUMMARY | ~2020-02-18 | XMS | Encounter Summary ---
Demographics + + + | Address | [address] | | | [place] [address] | + + + | Home Phone [...] Providers + +------+ + | Care Rehab Technician Name | Role | Phone | + +------+ + | Erika Ernst DO | PCP | | + +------+ + Reason for Visit + + + | Reason | Comments | + + + | Dizziness | | + + + Encounter Details +--------+---------+ + + + | Date | Type | Department | Care Team | Description | +--------+---------+ + + + | 12/18/ | Office | [facility] [facility] | Keith Ernsta Joie, | Dizziness (Primary | | 2019 | Visit | [facility] | DO [address] | Dx); Anxiety; | | | | [facility] [address] | [place] [address] | Chronic pain of both | | | | [address] [place], | [phone] | ears; Chronic | | | | [place] [address] | | congestion of | | | | [phone] | | paranasal sinus; | | | | | | Essential | | | | | | hypertension | +--------+---------+ + + + Social History [...] + | Blood Pressure | 132/82 | 12/18/2018 1:59 PM | | | | | PDT | | + + + + + | Pulse | 96 | 12/18/2018 1:59 PM | | | | | PDT | | + + + + + | Temperature | 37 C (98.6 F) | 12/18/2018 1:59 PM | | | | | PDT | | + + + + + | Respiratory Rate | 16 | 12/18/2018 1:59 PM | | | | | PDT | | + + + + + | Oxygen Saturation | 98% | 12/18/2018 1:59 PM | | | | | PDT | | + + + + + | Inhaled Oxygen | - | - | | | Concentration | | | | + + + + + | Weight | 171 kg (377 lb) | 12/18/2018 1:59 PM | | | | | PDT | | + + + + + | Height | 177.8 cm (5' 10") | 12/18/2018 1:59 PM | | | | | PDT | | + + + + + | Body Mass Index | 54.09 | 12/18/2018 1:59 PM | | | | | PDT | | + + + + + documented in this encounter Progress Erika Cespedes DO - 12/18/2018 2:00 PM PDTFormatting of this note might be different fro m the original. Subjective: Patient ID: Andrea Suh is a 28 y.o. female. Here with a dizzy episode she had Monday night about 10 PM. States the room was spinning. S he states it was so bad made her nauseated, no vomiting and though about going to the ER. Sh e states does not know what made it go away. She has had chronic sinus congestion and ear pa in and will see ENT on the . She thinks maybe she has another ear infection that causes the dizzy episode. She has no fevers or ST. She did not have chest pain or SOB with the epis ode. We had increased the buspar for her anxiety and she thought that may have been the cau se. She has some vague dizziness today but no other symptoms. Non-smoker. Review of Systems As above Objective: BP 132/82 | Pulse 96 | Temp 37 C (98.6 F) | Resp 16 | Ht 1.778 m (5' 10") | Wt (!) 171 kg (377 lb) | LMP (LMP Unknown) | SpO2 98% | BMI 54.09 kg/m [...] Judgment and thought content normal. Assessment: 1. Dizziness 2. Anxiety 3. Chronic pain of both ears 4. Chronic congestion of paranasal sinus 5. Essential hypertension Plan: We will decrease the Buspar back to 15 mg BID. She will FU with ENT as planned. Continue to monitor HTN. Meclizine 12.5 mg Q 6 hr prn dizziness. documented in this en counter Plan of Treatment +--------+ + + + + | Date | Type | Specialty | Care Team | Description | +--------+ + + + + | 02/18/ | Appointment | Rehabilitation | Erika Ernst, | | | 2019 | | | DO [address] | | | | | | [place] [address] | | | | | | [phone] | | | | | | | | | | | | Julia Fisher, | | | | | | PT | | +--------+ + + + + | 02/18/ | Appointment | Rehabilitation | Erika Ernst, | | | 2019 | | | DO [address] | | | | | | [place] [address] | | | | | | [phone] | | | | | | | | | | | | Genesis Ayon, OT | | +--------+ + + + + | 02/25/ | Office | Primary Care | Erika Ernst, | | | 2019 | Visit | | DO [address] | | | | | | [place] [address] | | | | | | [phone] | | | | | | | [...] | | | | | [place] [address] | | | | | | [phone] | | | | | | | | +--------+ + + + + | 02/27/ | Appointment | Radiology | Dhara, | | | 2019 | | | [address] | | | | | | [address] [facility] [place], | | | | | | [place] [address] | | | | | | [phone] | | | | | | | | +--------+ + + + + | 03/04/ | Appointment | Rehabilitation | Genesis Ayon OT | | 2019 | | | | | +--------+ + + + + | 03/09/ | Office | Orthopedic Surgery | Jeffrey Gandhi, | | | 2019 | Visit | | [address] [facility] | | | | | | [place] [address] | | | | | | [phone] | | | | | | | [...] [place] | | | | | | [address] | | | | | | [phone] | | | | | | | [...] | | | | | [place] [address] | | | | | | [phone] | | | | | | | | | | | | Azul Yeboah, | | | | | | [address] | | | | | | [place] | | | | | | [place] [address] | | | | | | [phone] | | | | | | | [...] | | | | | | [place] [address] | | | | | | [phone] | | | | | | | | +--------+ + + + + documented as of this encounter Visit Diagnoses + + | Diagnosis | + + | Dizziness - Primary Dizziness and giddiness | + + | Anxiety Anxiety state, unspecified | + + | Chronic pain of both ears | + + | Chronic congestion of paranasal sinus | + + | Essential hypertension Unspecified essential hypertension | + + documented in this encounter
--- OUTSIDE RECORDS SUMMARY | ~2020-02-18 | XMS | Encounter Summary ---
Demographics + + + | Address | [address] | | | [place] [address] | + + + | Home Phone | | + + + | Preferred Language | Unknown | + + + | Marital Status | Single | + + + | Baptism Affiliation | Unknown | + + + | Race | Unknown | + + + | Ethnic Group | Unknown | + + + Author + + + | Author | [facility] | | | and [place] | + + + | Organization | [facility] | | [...] Team Providers + +------+ + | Care Hydro Station Operator Name | Role | Phone | [...] | +--------+ + + + + | 09/04/ | Telephone | [facility] [facility] | Herbert Herron | Other | | 2019 | | [facility] | LISA Abad | | | | | [address] [place] | | | | | | [place] | | | | | | [address] | | | | | | [phone] | | | +--------+ + + + [...] | | | | | [place] [address] | | | | | | [phone] | | | | | | | | | | | | Julia Fisher, | | | | | | PT | | +--------+ + + + + | 02/18/ | Appointment | Rehabilitation | Erika Ernst, | | | 2019 | | | DO [address] | | | | | | [place] [address] | | | | | | [phone] | | | | | | | | | | | | Genesis Ayon OT | | +--------+ + + + + | 02/25/ | Office | Primary Care | Erika Ernst, | | | 2019 | Visit | | DO [address] | | | | | | [place] [address] | | | | | | [phone] | | | | | | | [...] | | | | | [place] [address] | | | | | | [phone] | | | | | | | | +--------+ + + + + | 02/27/ | Appointment | Radiology | Dhara, | | | 2019 | | | [address] | | | | | | [address] [facility], | | | | | | [place] [address] | | | | | | [phone] | | | | | | | [...] | | | | | [place] [address] | | | | | | [phone] | | | | | | | [...] | Visit | Gynecology | DO Jackelyn Gracia | | | | | | [address] | | | | | | [place], [place] | | | | | | [address] | | | | | | [phone] | | | | | | | [...] | | | | | [place] [address] | | | | | | [phone] | | | | | | | | | | | | Azul Yeboah, | | | | | | MD [address] | | | | | | [place] | | | | | | [place] [address] | | | | | | [phone] | | | | | | | [...] | | | | | | [place] [address] | | | | | | [phone] | | | | | | | | +--------+ + + + + documented as of this encounter Visit Diagnoses Not on filedocumented in this encounter"
--- OUTSIDE RECORDS SUMMARY | ~2020-02-18 | XMS | Encounter Summary ---
Demographics + + + | Address | [address] | | | [place] [address] | + + + | Home Phone [...] Team Providers + +------+ + | Care Van Cdl Driver Name | Role | Phone | [...] + + + + | 07/26/ | Telephone | [facility] | Keith Ernstleslie Salter, | Other | | 2019 | | [facility] | DO [address] | | | | | [facility] [address] | [place] [address] | | | | | [address] [place], | [phone] | | | | | [place] [address] | | | | | | [phone] | | | +--------+ + + + [...] | | | | | [place] [address] | | | | | | [phone] | | | | | | | | | | | | Julia Fisher, | | | | | | PT | | +--------+ + + + + | 02/18/ | Appointment | Rehabilitation | Erika Ernst, | | | 2019 | | | DO [address] | | | | | | [place] [address] | | | | | | [phone] | | | | | | | | | | | | Genesis Ayon OT | | +--------+ + + + + | 02/25/ | Office | Primary Care | Erika Ernst, | | | 2019 | Visit | | DO [address] | | | | | | [place] [address] | | | | | | [phone] | | | | | | | [...] | | | | | [place] [address] | | | | | | [phone] | | | | | | | | +--------+ + + + + | 02/27/ | Appointment | Radiology | Dhara, | | | 2019 | | | [address] | | | | | | [address] [facility], | | | | | | [place] [address] | | | | | | [phone] | | | | | | | [...] [place] | | | | | | [place] [address] | | | | | | [phone] | | | | | | | [...] [place] | | | | | | [address] | | | | | | [phone] | | | | | | | [...] | | | | | [place] [address] | | | | | | [phone] | | | | | | | | | | | | Azul Yeboah, | | | | | | MD [address] | | | | | | [place] | | | | | | [place] [address] | | | | | | [phone] | | | | | | | [...] | | | | | | [place] [address] | | | | | | [phone] | | | | | | | | +--------+ + + + + documented as of this encounter Visit Diagnoses Not on filedocumented in this encounter"
--- OUTSIDE RECORDS SUMMARY | ~2020-02-18 | XMS | Encounter Summary ---
Demographics + + + | Address | [address] | | | [place] [address] | + + + | Home Phone [...] Phone | + + +---------+ + | hBavna Boss | ECON | Unknown | | + + +---------+ + Care Team Providers + +------+ + | Care Coffee Urn Attendant Name | Role | Phone | [...] | [facility] [address] | [place] [address] | | | | | [address] [place], | [phone] | | | | | [place] [address] | | | | | | [phone] | | | +--------+ + + + [...] | | | | | [place] [address] | | | | | | [phone] | | | | | | | | | | | | Julia Fisher, | | | | | | PT | | +--------+ + + + + | 02/18/ | Appointment | Rehabilitation | Erika Ernst, | | | 2019 | | | DO [address] | | | | | | [place] [address] | | | | | | [phone] | | | | | | | | | | | | Genesis Ayon OT | | +--------+ + + + + | 02/25/ | Office | Primary Care | Erika Ernst, | | | 2019 | Visit | | DO [address] | | | | | | [place] [address] | | | | | | [phone] | | | | | | | [...] | | | | | | [place] [address] | | | | | | [phone] | | | | | | | | +--------+ + + + + | 02/27/ | Appointment | Radiology | Dhara, | | | 2019 | | | [address] | | | | | | [address] [facility], | | | | | | [place] [address] | | | | | | [phone] | | | | | | | | +--------+ + + + + | 03/04/ | Appointment | Rehabilitation | Genesis Ayon OT | | | 2019 | | | | | +--------+ + + + + | 03/09/ | Office | Orthopedic Surgery | Jeffrey Gandhi, | | | 2019 | Visit | | [address] | | | | | | [place] [address] | | | | | | [phone] | | | | | | | [...] [place] | | | | | | [address] | | | | | | [phone] | | | | | | | [...] | | | | | [place] [address] | | | | | | [phone] | | | | | | | | | | | | Azul Yeboah, | | | | | | [address] | | | | | | [place] | | | | | | [place] [address] | | | | | | [phone] | | | | | | | [...] | | | | | | [place] [address] | | | | | | [phone] | | | | | | | | +--------+ + + + + documented as of this encounter Visit Diagnoses Not on filedocumented in this encounter"
--- OUTSIDE RECORDS SUMMARY | ~2020-02-18 | XMS | Encounter Summary ---
Demographics + + + | Address | [address] | | | [place] [address] | + + + | Home Phone [...] Author | [facility] [...] Team Providers + +------+ + | Care Light Oil Operator Name | Role | Phone | [...] | +--------+ + + + + | 12/16/ | Telephone | [facility] [facility] | Erika Ernst, | Medication Related | | 2019 | | [facility] | DO [address] | | | | | [facility] [address] | [place] [address] | | | | | [address] [place], | [phone] | | | | | [place] [address] | | | | | | [phone] | | | +--------+ + + + [...] | | | | | [place] [address] | | | | | | [phone] | | | | | | | | | | | | Julia Fisher, | | | | | | PT | | +--------+ + + + + | 02/18/ | Appointment | Rehabilitation | Erika Ernst, | | | 2019 | | | DO [address] | | | | | | [place] [address] | | | | | | [phone] | | | | | | | | | | | | Genesis Ayon OT | | +--------+ + + + + | 02/25/ | Office | Primary Care | Erika Ernst, | | | 2019 | Visit | | DO [address] | | | | | | [place] [address] | | | | | | [phone] | | | | | | | [...] | | | | | [place] [address] | | | | | | [phone] | | | | | | | | +--------+ + + + + | 02/27/ | Appointment | Radiology | Dhara, | | | 2019 | | | [address] | | | | | | [address] [facility], | | | | | | [place] [address] | | | | | | [phone] | | | | | | | [...] [place] | | | | | | [place] [address] | | | | | | [phone] | | | | | | | [...] [place] | | | | | | [address] | | | | | | [phone] | | | | | | | [...] | | | | | [place] [address] | | | | | | [phone] | | | | | | | | | | | | Azul Yeboah, | | | | | | MD [address] | | | | | | [address] [place] | | | | | | [place] [address] | | | | | | [phone] | | | | | | | [...] | | | | | | [place] [address] | | | | | | [phone] | | | | | | | | +--------+ + + + + documented as of this encounter Visit Diagnoses Not on filedocumented in this encounter"
--- OUTSIDE RECORDS SUMMARY | ~2020-02-18 | XMS | Encounter Summary ---
Demographics + + + | Address | [address] | | | [place] [address] | + + + | Home Phone [...] Team Providers + +------+ + | Care Scallop Binder Name | Role | Phone | + +------+ + PCP | Unavailable | + +------+ + Encounter Details +--------+ + + + + | Date | Type | Department | Care Team | Description | +--------+ + + + + | 06/29/ | Hospital | [place] [facility] | Camille Bush | | | 2016 | Encounter | HOSPITAL NURSERY | MCKENZIE Matt [address] | | | | | [address] [place] | 4th [facility], | | | | | [place], [place] | [place] [address] | | | | | [address] | [phone] | | | | | [phone] | | | +--------+ + + + [...] | | 2019 | | | DO [address] [place] [address] | | | | | | [place] [address] | | | | | | [phone] | | | | | | | | | | | | Julia Fisher, | | | | | | PT | | +--------+ + + + + | 02/18/ | Appointment | Rehabilitation | Erika Ernst, | | | 2019 | | | DO [address] | | | | | | [place] [address] | | | | | | [phone] | | | | | | | | | | | | Genesis Ayon, SUSAN | | +--------+ + + + + | 02/25/ | Office | Primary Care | Erika Ernst, | | | 2019 | Visit | | DO [address] | | | | | | [place] [address] | | | | | | [phone] | | | | | | | [...] | | | | | [place] [address] | | | | | | [phone] | | | | | | | | +--------+ + + + + | 02/27/ | Appointment | Radiology | Dhara, | | | 2019 | | | [address] | | | | | | [address]TH [place], | | | | | | [place] [address] | | | | | | [phone] | | | | | | | [...] | | | | | [place] [address] | | | | | | [phone] | | | | | | | [...] [place] | | | | | | [address] | | | | | | [phone] | | | | | | | [...] | | | | | [place] [address] | | | | | | [phone] | | | | | | | | | | | | Azul Yeboah, | | | | | | MD [address] | | | | | | [place] | | | | | | [place] [address] | | | | | | [phone] | | | | | | | [...] | | | | | | [place] [address] | | | | | | [phone] | | | | | | | | +--------+ + + + + documented as of this encounter Visit Diagnoses Not on filedocumented in this encounter"
--- OUTSIDE RECORDS SUMMARY | ~2020-02-18 | XMS | Encounter Summary ---
Demographics + + + | Address | [address] | | | [place] [address] | + + + | Home Phone [...] Providers + +------+ + | Care Clinical Engineering Manager Name | Role | Phone [...] | [facility] | [place] [address] | frontal sinusitis | | | | [address] [place], | [phone] | | | | | [place] [address] | | | | | | [phone] | | | +--------+---------+ + + + [...] to FU with Emeka Vaughan for her [facility] health therapy. She has good BP [...] | | | | | [place] [address] | | | | | | [phone] | | | | | | | | | | | | Julia Fisher, | | | | | | PT | | +--------+ + + + + | 02/18/ | Appointment | Rehabilitation | Erika Ernst, | | | 2019 | | | DO [address] | | | | | | [place] [address] | | | | | | [phone] | | | | | | | | | | | | Genesis Ayon OT | | +--------+ + + + + | 02/25/ | Office | Primary Care | Erika Ernst, | | | 2019 | Visit | | DO [address] | | | | | | [place] [address] | | | | | | [phone] | | | | | | | [...] | | | | | [place] [address] | | | | | | [phone] | | | | | | | | +--------+ + + + + | 02/27/ | Appointment | Radiology | Dhara, | | | 2019 | | | [address] | | | | | | 4TH [facility], | | | | | | [place] [address] | | | | | | [phone] | | | | | | | | +--------+ + + + + | 03/04/ | Appointment | Rehabilitation | Genesis Ayon OT | | 2019 | | | | | +--------+ + + + + | 03/09/ | Office | Orthopedic Surgery | Jeffrey Gandhi, | | 2019 | Visit | | [address] | | | | | | [place] [address] | | | | | | [phone] | | | | | | | [...] [place] | | | | | | [address] | | | | | | [phone] | | | | | | | [...] | | | | | [place] [address] | | | | | | [phone] | | | | | | | | | | | | Azul Yeboah, | | | | | | MD [address] | | | | | | [place] | | | | | | [place] [address] | | | | | | [phone] | | | | | | | [...] | | | | | | 4TH [facility], | | | | | | [place] [address] | | | | | | [phone] | | | | | | | | +--------+ + + + + documented as of this encounter Visit Diagnoses + + | Diagnosis | + + | Anxiety - Primary Anxiety state, unspecified | + + | Acute recurrent frontal sinusitis Acute frontal sinusitis | + + documented in this encounter
--- OUTSIDE RECORDS SUMMARY | ~2020-02-18 | XMS | Encounter Summary ---
Demographics + + + | Address | [address] | | | [place] [address] | + + + | Home Phone [...] Team Providers + +------+ + | Care Betting Clerks Name | Role | Phone | + [...] | +--------+ + + + + | 01/02/ | Telephone | [facility] [facility] | Michela Azevedo, | Other (rehab therapy | | 2019 | | HOSPITAL THERAPY OT | OT | follow up) | | | | [address] | | | | | | [place] | | | | | | [address] | | | | | | [phone] | | | +--------+ + + + [...] | | | | | [place] [address] | | | | | | [phone] | | | | | | | | | | | | Julia Fisher, | | | | | | PT | | +--------+ + + + + | 02/18/ | Appointment | Rehabilitation | Erika Ernst, | | | 2019 | | | DO [address] | | | | | | [place] [address] | | | | | | [phone] | | | | | | | | | | | | Genesis Ayon OT | | +--------+ + + + + | 02/25/ | Office | Primary Care | Erika Ernst, | | | 2019 | Visit | | DO [address] | | | | | | [place] [address] | | | | | | [phone] | | | | | | | [...] | | | | | [place] [address] | | | | | | [phone] | | | | | | | | +--------+ + + + + | 02/27/ | Appointment | Radiology | Dhara, | | | 2019 | | | [address] | | | | | | 4TH [facility], | | | | | | [place] [address] | | | | | | [phone] | | | | | | | [...] | | | | | [place] [address] | | | | | | [phone] | | | | | | | [...] [place] | | | | | | [address] | | | | | | [phone] | | | | | | | [...] | | | | | [place] [address] | | | | | | [phone] | | | | | | | | | | | | Azul Yeboah, | | | | | | MD [address] | | | | | | [place] | | | | | | [place] [address] | | | | | | [phone] | | | | | | | [...] | | | | | | [place] [address] | | | | | | [phone] | | | | | | | | +--------+ + + + + documented as of this encounter Visit Diagnoses Not on filedocumented in this encounter"
--- OUTSIDE RECORDS SUMMARY | ~2020-02-18 | XMS | Encounter Summary ---
Demographics + + + | Address | [address] | | | [place] [address] | + + + | Home Phone [...] Team Providers + +------+ + | Care Sharepoint Solutions Developer Name | Role | Phone | + +------+ + | Erika Ernst DO | PCP | | + +------+ + Reason for Visit +--------+ + | Reason | Comments | +--------+ + | Other | Prior auth to WC for Rx | +--------+ + Encounter Details +--------+ + + + + | Date | Type | Department | Care Team | Description | +--------+ + + + + | 01/10/ | Telephone | [facility] [facility] | Emily Mittal DPM | Other (Prior auth to | | 2018 | | HOSPITAL PODIATRY | [address] [place] | WC for Rx) | | | | [address] | [place] | | | | | [place], [place] | [id number] | | | | | [address] | | | | | | [phone] | | | +--------+ + + + [...] | | | | | [place], [place] [address] | | | | | | [phone] | | | | | | | | | | | | Julia Fisher, | | | | | | PT | | +--------+ + + + + | 02/18/ | Appointment | Rehabilitation | Erika Ernst, | | | 2019 | | | DO [address] | | | | | | [place] [address] | | | | | | [phone] | | | | | | | | | | | | Genesis Ayon OT | | +--------+ + + + + | 02/25/ | Office | Primary Care | Erika Ernst, | | | 2019 | Visit | | DO [address] | | | | | | [place] [address] | | | | | | [phone] | | | | | | | [...] | | | | | [place] [address] | | | | | | [phone] | | | | | | | | +--------+ + + + + | 02/27/ | Appointment | Radiology | Dhara, | | | 2019 | | | [address] | | | | | | 4TH [facility], | | | | | | [place] [address] | | | | | | [phone] | | | | | | | | +--------+ + + + + | 03/04/ | Appointment | Rehabilitation | Genesis Ayon OT | | | 2019 | | | | | +--------+ + + + + | 03/09/ | Office | Orthopedic Surgery | Jeffrey Gandhi, | | | 2019 | Visit | | MD [address] [facility] | | | | | | [place] [address] | | | | | | [phone] | | | | | | | [...] [place] | | | | | | [address] | | | | | | [phone] | | | | | | | [...] | | | | | [place] [address] | | | | | | [phone] | | | | | | | | | | | | Azul Yeboah, | | | | | | MD [address] | | | | | | [place] | | | | | | [place] [address] | | | | | | [phone] | | | | | | | [...] | | | | | | [place] [address] | | | | | | [phone] | | | | | | | | +--------+ + + + + documented as of this encounter Visit Diagnoses Not on filedocumented in this encounter"
--- OUTSIDE RECORDS SUMMARY | ~2020-02-18 | XMS | Encounter Summary ---
Demographics + + + | Address | [address] | | | [place] [address] | + + + | Home Phone [...] Providers + +------+ + | Care Medical Review Coordinator Name | Role | Phone | + +------+ + PCP | Unavailable | + +------+ + Encounter Details +--------+ + + + + | Date | Type | Department | Care Team | Description | +--------+ + + + + | 05/11/ | Hospital | [place] [facility] | Tyrese Kee | | | 2013 | Encounter | HOSPITAL EMERGENCY | MD Peter [address] | | | | | CENTER [address] | | | | | [address] [place], [place] | [place] [address] | | | | | [address] | [phone] | | | | | [phone] | | | +--------+ + + + [...] | | | | | [place] [address] | | | | | | [phone] | | | | | | | | | | | | Julia Fisher, | | | | | | PT | | +--------+ + + + + | 02/18/ | Appointment | Rehabilitation | Erika Ernst, | | | 2019 | | | DO [address] | | | | | | [place] [address] | | | | | | [phone] | | | | | | | | | | | | Genesis Ayon OT | | +--------+ + + + + | 02/25/ | Office | Primary Care | Erika Ernst, | | | 2019 | Visit | | DO [address] | | | | | | [place] [address] | | | | | | [phone] | | | | | | | [...] | | | | | [place] [address] | | | | | | [phone] | | | | | | | | +--------+ + + + + | 02/27/ | Appointment | Radiology | Dhara, | | | 2019 | | | [address] | | | | | | 4TH [facility], | | | | | | [place] [address] | | | | | | [phone] | | | | | | | [...] [place] | | | | | | [place] [address] | | | | | | [phone] | | | | | | | [...] [place] | | | | | | [address] | | | | | | [phone] | | | | | | | [...] | | | | | [place] [address] | | | | | | [phone] | | | | | | | | | | | | Azul Yeboah, | | | | | | MD [address] | | | | | | [place] | | | | | | [place] [address] | | | | | | [phone] | | | | | | | [...] | | | | | | [place] [address] | | | | | | [phone] | | | | | | | | +--------+ + + + + documented as of this encounter Visit Diagnoses Not on filedocumented in this encounter"
--- OUTSIDE RECORDS SUMMARY | ~2020-02-18 | XMS | Encounter Summary ---
Demographics + + + | Address | [address] | | | [place] [address] | + + + | Home Phone [...] Team Providers + +------+ + | Care Steam Finisher Name | Role | Phone | + [...] + + + + | 02/02/ | Telephone | [place] [facility] | Evelyn Malik, | Care Coordination | | 2019 | | [facility] | Case | | | | | [facility] | Furniture Upholsterer Apprentice-Clinical | | | | | 4TH [facility] [place], | | | | | | [place] [address] | | | | | | [phone] | | | +--------+ + + + [...] | | | | | [place] [address] | | | | | | [phone] | | | | | | | | | | | | Julia Fisher, | | | | | | PT | | +--------+ + + + + | 02/18/ | Appointment | Rehabilitation | Erika Ernst, | | | 2019 | | | DO [address] | | | | | | [place] [address] | | | | | | [phone] | | | | | | | | | | | | Genesis Ayon OT | | +--------+ + + + + | 02/25/ | Office | Primary Care | Erika Ernst, | | | 2019 | Visit | | DO [address] | | | | | | [place] [address] | | | | | | [phone] | | | | | | | [...] | | | | | [place] [address] | | | | | | [phone] | | | | | | | | +--------+ + + + + | 02/27/ | Appointment | Radiology | Dhara, | | | 2019 | | | [address] | | | | | | 4TH [facility], | | | | | | [place] [address] | | | | | | [phone] | | | | | | | | +--------+ + + + + | 03/04/ | Appointment | Rehabilitation | Genesis Ayon OT | | | 2019 | | | | | +--------+ + + + + | 03/09/ | Office | Orthopedic Surgery | Jeffrey Gandhi, | | | 2019 | Visit | | [address] | | | | | | [place] [address] | | | | | | [phone] | | | | | | | [...] [place] | | | | | | [address] | | | | | | [phone] | | | | | | | [...] | | | | | [place] [address] | | | | | | [phone] | | | | | | | | | | | | Azul Yeboah, | | | | | | MD [address] | | | | | | [place] | | | | | | [place] [address] | | | | | | [phone] | | | | | | | [...] | | | | | | [place] [address] | | | | | | [phone] | | | | | | | | +--------+ + + + + documented as of this encounter Visit Diagnoses Not on filedocumented in this encounter"
--- OUTSIDE RECORDS SUMMARY | ~2020-02-18 | XMS | Encounter Summary ---
Demographics + + + | Address | [address] | | | [place] [address] | + + + | Home Phone [...] Team Providers + +------+ + | Care Forming Mill Operator Name | Role | Phone | + +------+ + | Erika Ernst DO | PCP | | + +------+ + Encounter Details +--------+ + + + + | Date | Type | Department | Care Team | Description | +--------+ + + + + | 07/26/ | Hospital | [place] [facility] | | | | 2016 | Encounter | HOSPITAL LABORATORY | | | | | | [address] | | | | | | [place] | | | | | | [address] | | | | | | [phone] | | | +--------+ + + + [...] | | | | | [place] [address] | | | | | | [phone] | | | | | | | | | | | | Julia Fisher, | | | | | | PT | | +--------+ + + + + | 02/18/ | Appointment | Rehabilitation | Erika Ernst, | | | 2019 | | | DO [address] | | | | | | [place] [address] | | | | | | [phone] | | | | | | | | | | | | Genesis Ayon OT | | +--------+ + + + + | 02/25/ | Office | Primary Care | Erika Ernst, | | | 2019 | Visit | | DO [address] | | | | | | [place] [address] | | | | | | [phone] | | | | | | | [...] | | | | | [place] [address] | | | | | | [phone] | | | | | | | | +--------+ + + + + | 02/27/ | Appointment | Radiology | Dhara | | | 2019 | | | [address] | | | | | | [address] [place], | | | | | | [place] [address] | | | | | | [phone] | | | | | | | | +--------+ + + + + | 03/04/ | Appointment | Rehabilitation | Genesis Ayon OT | | | 2019 | | | | | +--------+ + + + + | 03/09/ | Office | Orthopedic Surgery | Jeffrey Gandhi, | | | 2019 | Visit | | [place] [address] [facility] | | | | | | [place] [address] | | | | | | [phone] | | | | | | | [...] [place] | | | | | | [address] | | | | | | [phone] | | | | | | | [...] | | | | | [place] [address] | | | | | | [phone] | | | | | | | | | | | | Azul Yeboah, | | | | | | MD [address] | | | | | | [place] | | | | | | [place] [address] | | | | | | [phone] | | | | | | | [...] | | | | | | [place] [address] | | | | | | [phone] | | | | | | | | +--------+ + + + + documented as of this encounter Visit Diagnoses Not on filedocumented in this encounter"
--- OUTSIDE RECORDS SUMMARY | ~2020-02-18 | XMS | Encounter Summary ---
Demographics + + + | Address | [address] | | | [place] [address] | + + + | Home Phone [...] Team Providers + +------+ + | Care Rn Correctional Name | Role | Phone | + +------+ + PCP | Unavailable | + +------+ + Encounter Details +--------+ + + + + | Date | Type | Department | Care Team | Description | +--------+ + + + + | 11/23/ | Hospital | [place] [facility] | Caro Zendejas | | | 2016 | Encounter | HOSPITAL NURSERY | MCKENZIE Collazo [address] | | | | | [address] | [facility] [place] | | | | | [place], [place] | [address] | | | | | [address] | [phone] | | | | | [phone] | | | +--------+ + + + [...] | | | | | [place] [address] | | | | | | [phone] | | | | | | | | | | | | Julia Fisher, | | | | | | PT | | +--------+ + + + + | 02/18/ | Appointment | Rehabilitation | Erika Ernst, | | | 2019 | | | DO [address] | | | | | | [place] [address] | | | | | | [phone] | | | | | | | | | | | | Genesis Ayon, OT | | +--------+ + + + + | 02/25/ | Office | Primary Care | Erika Ernst, | | | 2019 | Visit | | DO [address] | | | | | | [place] [address] | | | | | | [phone] | | | | | | | [...] | | | | | | [place] [address] | | | | | | [phone] | | | | | | | | +--------+ + + + + | 02/27/ | Appointment | Radiology | Dhara, | | | 2019 | | | [address] | | | | | | 4TH [facility], | | | | | | [place] [address] | | | | | | [phone] | | | | | | | | +--------+ + + + + | 03/04/ | Appointment | Rehabilitation | Genesis Ayon OT | | | 2019 | | | | | +--------+ + + + + | 03/09/ | Office | Orthopedic Surgery | Jeffrey Gandhi, | | 2019 | Visit | | [address] | | | | | | [place] [address] | | | | | | [phone] | | | | | | | [...] [place] | | | | | | [address] | | | | | | [phone] | | | | | | | [...] | | | | | [place] [address] | | | | | | [phone] | | | | | | | | | | | | Azul Yeboah, | | | | | | MD [address] | | | | | | [place] | | | | | | [place] [address] | | | | | | [phone] | | | | | | | [...] | | | | | | [place] [address] | | | | | | [phone] | | | | | | | | +--------+ + + + + documented as of this encounter Visit Diagnoses Not on filedocumented in this encounter"
--- OUTSIDE RECORDS SUMMARY | ~2020-02-18 | XMS | Encounter Summary ---
Demographics + + + | Address | [address] | | | [place] [address] | + + + | Home Phone [...] Team Providers + +------+ + | Care Tank Shop Supervisor Name | Role | Phone | [...] + + + + | 10/25/ | Telephone | [place] [facility] | Erika Ernst, | Lab Results | | 2019 | | [facility] | DO [address] | | | | | [facility] | [place] [address] | | | | | [address] [place], | [phone] | | | | | [place] [address] | | | | | | [phone] | | | +--------+ + + + [...] | | | | | [place] [address] | | | | | | [phone] | | | | | | | | | | | | Forma, Julia M, | | | | | | PT | | +--------+ + + + + | 02/18/ | Appointment | Rehabilitation | Erika Ernst, | | | 2019 | | | DO [address] | | | | | | [place] [address] | | | | | | [phone] | | | | | | | | | | | | Genesis Ayon OT | | +--------+ + + + + | 02/25/ | Office | Primary Care | Erika Ernst, | | | 2019 | Visit | | DO [address] | | | | | | [place] [address] | | | | | | [phone] | | | | | | | [...] | | | | | [place] [address] | | | | | | [phone] | | | | | | | | +--------+ + + + + | 02/27/ | Appointment | Radiology | Dhara, | | | 2019 | | | [address] | | | | | | 4TH [facility], | | | | | | [place] [address] | | | | | | [phone] | | | | | | | [...] ST | | | | | | [place] [address] | | | | | | [phone] | | | | | | | [...] [place] | | | | | | [address] | | | | | | [phone] | | | | | | | [...] | | | | | [place] [address] | | | | | | [phone] | | | | | | | | | | | | Azul Yeboah, | | | | | | MD [address] | | | | | | [place] | | | | | | [place] [address] | | | | | | [phone] | | | | | | | [...] | | | | | | [place] [address] | | | | | | [phone] | | | | | | | | +--------+ + + + + documented as of this encounter Visit Diagnoses Not on filedocumented in this encounter"
--- OUTSIDE RECORDS SUMMARY | ~2020-02-18 | XMS | Encounter Summary ---
Demographics + + + | Address | [address] | | | [place] [address] | + + + | Home Phone [...] Team Providers + +------+ + | Care Behavioral Health Aide Name | Role | Phone | + +------+ + | Erika Ernst DO | PCP | | + +------+ + Encounter Details +--------+ + + + + | Date | Type | Department | Care Team | Description | +--------+ + + + + | 09/08/ | Orders Only | [place] [facility] | Anthony Alvarado MD | Left thyroid nodule | | 2019 | | HOSPITAL ENT [address] | [address] [place] | (Primary Dx) | | | | [address] [place] [place] | [place], [place] | | | | | [place], [place] | [address] | | | | | [address] | [phone] | | | | | [phone] | | | +--------+ + + + [...] | | | | | [place] [address] | | | | | | [phone] | | | | | | | | | | | | Julia Fisher, | | | | | | PT | | +--------+ + + + + | 02/18/ | Appointment | Rehabilitation | Erika Ernst, | | | 2019 | | | DO [address] [place] | | | | | | [place] [address] | | | | | | [phone] | | | | | | | | | | | | [facility] OT | | +--------+ + + + + | 02/25/ | Office | Primary Care | Erika Ernst, | | | 2019 | Visit | | DO [address] [place] | | | | | | [place] [address] | | | | | | [phone] | | | | | | | [...] | | | | | [place] [address] | | | | | | [phone] | | | | | | | | +--------+ + + + + | 02/27/ | Appointment | Radiology | Dhara, | | | 2019 | | | [address] | | | | | | 4TH [facility], | | | | | | [place] [address] | | | | | | [phone] | | | | | | | [...] | | | | | [place] [address] | | | | | | [phone] | | | | | | | [...] [place] | | | | | | [address] | | | | | | [phone] | | | | | | | [...] | | | | | [place] [address] | | | | | | [phone] | | | | | | | | | | | | Azul Yeboah, | | | | | | MD [address] | | | | | | [place] | | | | | | [place] [address] | | | | | | [phone] | | | | | | | [...] | | | | | | [place] [address] | | | | | | [phone] | | | | | | | | +--------+ + + + + + +---------+--------+ + + | Name | Type | Priori | Associated Diagnoses | Order Schedule | | | | ty | | | + +---------+--------+ + + | US Thyroid | Imaging | Routin | Left thyroid | Expected: | | | | e | nodule | 09/08/2020, Expires: | | | | | | 03/09/2021 | + +---------+--------+ + + documented as of this encounter Visit Diagnoses + + | Diagnosis | + + | Left thyroid nodule - Primary Nontoxic uninodular goiter | + + documented in this encounter"
--- OUTSIDE RECORDS SUMMARY | ~2020-02-18 | XMS | Encounter Summary ---
Demographics + + + | Address | [address] | | | [place] [address] | + + + | Home Phone [...] Providers + +------+ + | Care Program Professional Name | Role | Phone | + +------+ + | Erika Ernst DO | PCP | | + +------+ + Reason for Visit + + + | Reason | Comments | + + + | Adenopathy | | + + + Encounter Details +--------+---------+ + + + | Date | Type | Department | Care Team | Description | +--------+---------+ + + + | 04/01/ | Office | [facility] [facility] | Alem Guerrero, | Lymphadenopathy of | | 2019 | Visit | [facility] | POST ACUTE CARE NURSE-LOCOMOTIVE ENGINEER [address] | head and neck | | | | [facility] [address] | [address] [place] | | | | | [address] [place], | [place] [address] | | | | | [place] [address] | [phone] | | | | | [phone] | | | | | | | Brandi Pitts, | | | | | | DO [address] | | | | | | [place] [address] | | | | | | [phone] | | | | | | | [...] + + + | Blood Pressure | 138/89 | 04/01/2019 4:28 PM | left arm radial cuff | | | | PDT | auto | + + + + + | Pulse | 74 | 04/01/2019 4:28 PM | reg | | | | PDT | | + + + + + | Temperature | 37.1 C (98.7 F) | 04/01/2019 4:28 PM | | | | | PDT | | + + + + + | Respiratory Rate | 16 | 04/01/2019 4:28 PM | | | | | PDT | | + + + + + | Oxygen Saturation | 100% | 04/01/2019 4:28 PM | ra | | | | PDT | | + + + + + | Inhaled Oxygen | - | - | | | Concentration | | | | + + + + + | Weight | 171 kg (377 lb) | 04/01/2019 4:28 PM | state | | | | PDT | | + + + + + | Height | - | - | | + + + + + | Body Mass Index | 54.09 | 03/22/2019 4:17 PM | | | | | PDT | | + + + + + documented in this encounter Progress Notes Hong Brandi Salamanca, DO - 04/01/2019 4:20 PM PDT Patient ID: Andrea Suh is a 28 y.o. year old female Chief Complaint Patient presents with Adenopathy Assessment and Plan: Lymphadenopathy of head and neck She just had a root canal and is awaiting a crown. Her recent dental work could be playing into her superficial lymphadenopathy. She also had cold symptoms over the weekend which nam ve now resolved. Reassurance provided. She has a follow-up with her PCP scheduled in 10 da ys time. Subjective: HPI: Patient presents to the walk in clinic for swollen lymph nodes on the neck that are te nder noted during a PT session today for TMJ. She did have tiredness last week but she attr ibuted that to having surgery on her arm a couple weeks ago. She denies any dental or facia l pain. She denies sore throat. She does have extensive bruising along both jaws where she had cupping done by the physical therapist. Patient needs to have a crown placed on her tooth but the appointment is scheduled. Review of Systems Constitutional: Negative for fatigue. HENT: Negative for sinus pressure, sinus pain and sore throat. Respiratory: Negative for cough. Objective: Vitals: BP 138/89 Comment: left arm radial cuff auto | Pulse 74 Comment: reg | Temp 37.1 C (98.7 F) (Temporal) | Resp 16 | Wt (!) 171 kg (377 lb) Comment: state | SpO2 100% Comment: ra | BMI 54.09 kg/m Physical Exam HENT: Mouth/Throat: Bilateral lateral facial round bruising Neck: Neck supple. No neck rigidity. Lymphadenopathy: Head (right side): Submental and submandibular adenopathy present. No preauricular, no posterior auricular and no occipital adenopathy present. Head (left side): Submental and submandibular adenopathy present. No preauricular, no posterior auricular and no occipital adenopathy present. She has cervical adenopathy. Right cervical: Superficial cervical adenopathy present. Entered by Marissa Bautista CNA 2, [facility], acting as scribe for Dr. Hong DO The documentation recorded by the scribe accurately reflects the service I personally perfo rmed and the decisions made by me. Electronically signed by: Brandi Pitts DO 04/17/2019 7:54 Note: Part of this report was transcribed using voice recognition software. Every effort wa s made to ensure accuracy. However, inadvertent computerized sole filler errors may be pre sent. documented in this encounter Plan of Treatment +--------+ + + + + | Date | Type | Specialty | Care Team | Description | +--------+ + + + + | 02/18/ | Appointment | Rehabilitation | Erika Ernst, | | | 2019 | | | DO [address] [facility] | | | | | | [place] [address] | | | | | | [phone] | | | | | | | | | | | | Julia Fisher, | | | | | | PT | | +--------+ + + + + | 02/18/ | Appointment | Rehabilitation | Erika Ernst, | | | 2019 | | | DO [address] [place] | | | | | | [place] [address] | | | | | | [phone] | | | | | | | | | | | | Genesis Ayon, SUSAN | | +--------+ + + + + | 02/25/ | Office | Primary Care | Erika Ernst, | | | 2019 | Visit | | DO [address] [place] | | | | | | [place] [address] | | | | | | [phone] | | | | | | | [...] | | | | | [place] [address] | | | | | | [phone] | | | | | | | | +--------+ + + + + | 02/27/ | Appointment | Radiology | Dhara, | | | 2019 | | | DWAINE Ross [address] | | | | | | [address] [facility] [place], | | | | | | [place] [address] | | | | | | [phone] | | | | | | | [...] | | | | | [place] [address] | | | | | | [phone] | | | | | | | [...] [place] | | | | | | [address] | | | | | | [phone] | | | | | | | [...] | | | | | [place] [address] | | | | | | [phone] | | | | | | | | | | | | Azul Yeboah, | | | | | | MD [address] | | | | | | [place] | | | | | | [place] [address] | | | | | | [phone] | | | | | | | [...] | | | | | | [place] [address] | | | | | | [phone] | | | | | | | | +--------+ + + + + documented as of this encounter Visit Diagnoses + + | Diagnosis | + + | Lymphadenopathy of head and neck | + + documented in this encounter"
--- OUTSIDE RECORDS SUMMARY | ~2020-02-18 | XMS | Encounter Summary ---
Demographics + + + | Address | [address] | | | [place] [address] | + + + | Home Phone [...] Team Providers + +------+ + | Care Rooms Director Name | Role | Phone | + +------+ + | Erika Ernst DO | PCP | | + +------+ + Reason for Visit + + + | Reason | Comments | + + + | Palpitations | | + + + Encounter Details +--------+---------+ + + + | Date | Type | Department | Care Team | Description | +--------+---------+ + + + | 01/17/ | Office | [place] [facility] | Erika Ernst, | Heart palpitations | | 2019 | Visit | [facility] | DO [address] | (Primary Dx); | | | | MED[facility] CLINIC [facility] | [place] [address] | Essential | | | | [address] [place], | [phone] | hypertension; Asthma | | | | [place] [address] | | due to | | | | [phone] | | environmental | | | | | | allergies; Class 3 | | [...] + + + | Blood Pressure | 122/86 | 01/17/2019 4:31 PM | | | | | PDT | | + + + + + | Pulse | 91 | 01/17/2019 4:31 PM | | | | | PDT | | + + + + + | Temperature | 36.9 C (98.4 F) | 01/17/2019 4:31 PM | | | | | PDT | | + + + + + | Respiratory Rate | 18 | 01/17/2019 4:31 PM | | | | | PDT | | + + + + + | Oxygen Saturation | 98% | 01/17/2019 4:31 PM | | | | | PDT | | + + + + + | Inhaled Oxygen | - | - | | | Concentration | | | | + + + + + | Weight | 170.6 kg (376 lb) | 01/17/2019 4:31 PM | | | | | PDT | | + + + + + | Height | 177.8 cm (5' 10") | 01/17/2019 4:31 PM | | | | | PDT | | + + + + + | Body Mass Index | 53.95 | 01/17/2019 4:31 PM | | | | | PDT | | + + + + + documented in this encounter Patient Instructions Patient Instructions Erika Ernst DO - 01/17/2019 4:30 PM PDTTake 5 mg norvasc daily a nd monitor blood pressure at home. documented in this encounter Progress Notes Erika Ernst DO - 01/17/2019 4:30 PM PDTFormatting of this note might be different fro m the original. Subjective: Patient ID: Andrea Suh is a 28 y.o. female. Here to FU on her chronic conditions and heart palpitations. 48 hour holter monitor was ess entially normal and she states she did not have any episodes during the monitor period and s till having some palpitations and would like to repeat the holter for a longer period. She d id have some allergy to the adhesive they used and she is seeing dermatology next week and w ill check to see if this repeat is Ok allergy bunn. She will let the holter potline monitor kne w this when she gets the next one done. HTN is well controlled today but she had been on campos zide and stopped it due to a reaction she had with prednisone she is taking for a asthma fla ir. She will resume 5 mg norvasc at this time for HTN control since off the diazide. She wa s diagnosed with possible Meniere's but her PT for the TMJ she has does not think this is ac curate. She will be seeing Dr Christiano ALEXANDER for opinion on this. She has referral to oral surgeon for the TMJ as well. No wheeze or cough today. Still working with Dr Liam ALEXANDER for the a llergies. She met with dietitian yesterday for wt loss and HTN . Review of Systems As above Objective: BP 122/86 | Pulse 91 | Temp 36.9 C (98.4 F) (Oral) | Resp 18 | Ht 1.778 m (5' 10") | Wt (!) 170.6 kg (376 lb) | LMP 12/20/2018 | SpO2 98% | BMI 53.95 kg/m Physical Exam Constitutional: She is oriented to person, place, and time. She appears well-developed and well-nourished. No distress. Eyes: Conjunctivae are normal. Cardiovascular: Normal rate, regular rhythm and normal heart sounds. No murmur heard. Pulmonary/Chest: Effort normal and breath sounds normal. No respiratory distress. She has n o wheezes. Neurological: She is alert and oriented to person, place, and time. Skin: Skin is warm and dry. No rash noted. Psychiatric: She has a normal mood and affect. Her behavior is normal. Assessment: 1. Heart palpitations Holter monitor - 1 week 2. Essential hypertension 3. Asthma due to environmental allergies 4. Class 3 severe obesity due to excess calories without serious comorbidity with body mass index (BMI) of 50.0 to 59.9 in adult ([facility]) Plan: We will order a week long Holter monitor test. Norvasc 5 mg daily for HTN control since off the dyazide. She will keep her appointments with specialists. Continue work with dietitian documented in this en counter Plan of Treatment +--------+ + + + + | Date | Type | Specialty | Care Team | Description | +--------+ + + + + | 02/18/ | Appointment | Rehabilitation | Erika rEnst, | | | 2019 | | | DO [address] [place] | | | | | | [facility] [place] [address] | | | | | | [phone] | | | | | | | | | | | | Julia Fisher, | | | | | | PT | | +--------+ + + + + | 02/18/ | Appointment | Rehabilitation | Erika Ernst, | | 2019 | | | DO [address] [place] | | | | | | [place] [address] | | | | | | [phone] | | | | | | | | | | | | Genesis Ayon, OT | | +--------+ + + + + | 02/25/ | Office | Primary Care | Erika Ernst, | | | 2019 | Visit | | DO [address] [place] | | | | | | [place] [address] | | | | | | [phone] | | | | | | | [...] | | | | | [place] [address] | | | | | | [phone] | | | | | | | | +--------+ + + + + | 02/27/ | Appointment | Radiology | Dhara, | | | 2019 | | | DWAINE Ross [address] | | | | | | [address] [place], | | | | | | [place] [address] | | | | | | [phone] | | | | | | | | +--------+ + + + + | 03/04/ | Appointment | Rehabilitation | Genesis Ayon OT | | | 2019 | | | | | +--------+ + + + + | 03/09/ | Office | Orthopedic Surgery | Jeffrey Gandhi, | | | 2019 | Visit | | [address] | | | | | | [place] [address] | | | | | | [phone] | | | | | | | [...] [place] | | | | | | [address] | | | | | | [phone] | | | | | | | [...] | | | | | [place] [address] | | | | | | [phone] | | | | | | | | | | | | Azul Yeboah, | | | | | | [address] | | | | | | [place] | | | | | | [place] [address] | | | | | | [phone] | | | | | | | [...] | | | | | | [place] [address] | | | | | | [phone] | | | | | | | | +--------+ + + + + documented as of this encounter Results Holter monitor - 1 week (02/15/2019 9:14 AM PDT) + + + | Narrative | Performed At | + + + | | | + + + + +---------+ + + | Performing | Address | City/State/Zipcode | Phone Number | | Organization | | | | + +---------+ + + | [facility] | | | | + +---------+ + + documented in this encounter Visit Diagnoses + + | Diagnosis | + + | Heart palpitations - Primary Palpitations | + + | Essential hypertension Unspecified essential hypertension | + + | Asthma due to environmental allergies | + + | Class 3 severe obesity due to excess calories without serious comorbidity with body | | mass index (BMI) of 50.0 to 59.9 in adult (HCC) | + + documented in this encounter
--- OUTSIDE RECORDS SUMMARY | ~2020-02-18 | XMS | Encounter Summary ---
Demographics + + + | Address | [address] | | | [place] [address] | + + + | Home Phone [...] + | Author | [facility] | | | and [place] | + + + | Organization | [facility] | | | and [...] Team Providers + +------+ + | Care Metal Cut Off Saw Operator Name | Role | Phone | [...] | | | | s (de | [place], [place] | [place] [address] | | | | | quervain) | [address] | Phone: | | | | | Pain in | Phone: | [phone] | | | | | right wrist | [phone] | Fax: | | | | | Procedures | Fax: | [phone] | | | | | OT TREAT | [phone] | | +--------+--------+ + + + + Encounter Details +--------+ + + + + | Date | Type | Department | Care Team | Description | +--------+ + + + + | 10/23/ | Hospital | [place] [facility] | Jeffrey Gandhi, | Radial styloid | | 2019 | Encounter | [facility] OT | [address] | tenosynovitis | | | | [address] [place] | [place] [address] | (Primary Dx); Right | | | | [place], [place] | [phone] | wrist pain | | | | [address] | | | | | | [phone] | Nakia Koo OT | | +--------+ [...] encounter Progress Notes Nakia Koo, OT - 10/23/2018 4:10 PM PST [facility] [address] [place] [address] Occupational Therapy Daily Treatment Note Date: 10/23/2018 Patient Information Patient Name: Andrea Suh Date of : 1990 Age: 28 y.o. History Encounter Diagnoses Code Name Primary? M65.4 Radial styloid tenosynovitis Yes M25.531 Right wrist pain Date of Onset: 07/20/2018 Referring Provider: Jeffrey Gandhi MD Objective Pain Assessment: Pain Rating Pre Assessment: 3 Location: Right wrist Pain/Comfort Presence Of Pain: complains of pain/discomfort Today's Treatment Patient Name: Andrea Suh/: 1990/ Start Time: 1000 Stop time: 1049 Duration: 49 minutes Timed Treatment Codes: 45 minutes # of OT Visits: 11.3 Visit Summary: S: The K Tape worked really well and stayed on for 3-4 days. A: Continued fo cus on strengthening and increasing wrist stability with forearm rotation. Next Visit: Resistive exercises, functional supination and pronation Interventions OT INTERVENTION 2: TE - 25 minutes: With 3 lb x 5 then 5 lb x 5 - wrist extension, radial deviation and flexion. Holding a hammer 3" from the head, controlled supination/pronation to increase wrist stability. UBC upgraded to 8 minutes, alternating forward and backward each minute, 4 minutes bilaterally, 4 minutes right hand only. Wrist roll - increased to 3 lbs x 2. Added inclined push ups at the parallel bars x 10. Cable machine - 2 plates for functiona l pulling and pushing x 15 each position. OT MANUAL THERAPY 1: 20 minutes - Graston technique for soft tissue mobilization, joint mob ilization of the wrist in all planes. Application of K Tape at the conclusion of treatment - from elbow in 2 fingers at 25% stretch to the thumb and one rectangular piece over the TFCC . Assessment 10/16/2018 - PROGRESS REVIEW - Andrea has made steady gains towards her rehab goals. She con tinues to have some deficits in AROM, pinch and head swamper strength. She has returned to modified work [...] pt has made progress with her R head swamper strength, but is still experiencing activity limiting [...] in 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, and head swamper and pinch weakness in the right hand [...] ices. Electronically signed by: Nakia Koo OT, 10/23/2018 16:10 Patient Name: Andrea Suh/: 1990/ documented in [...] | | | | | [place] [address] | | | | | | [phone] | | | | | | | | | | | | Julia Fisher, | | | | | | PT | | +--------+ + + + + | 02/18/ | Appointment | Rehabilitation | Erika Ernst, | | | 2019 | | | DO [address] [place] | | | | | | [place] [address] | | | | | | [phone] | | | | | | | | | | | | Genesis Ayon OT | | +--------+ + + + + | 02/25/ | Office | Primary Care | Erika Ernst, | | | 2019 | Visit | | DO [address] [place] | | | | | | [place] [address] | | | | | | [phone] | | | | | | | [...] | | | | | [place] [address] | | | | | | [phone] | | | | | | | | +--------+ + + + + | 02/27/ | Appointment | Radiology | Dhara, | | | 2019 | | | DWAINE Ross [address] | | | | | | [address] [facility], | | | | | | [place] [address] | | | | | | [phone] | | | | | | | [...] [place] | | | | | | [place] [address] | | | | | | [phone] | | | | | | | [...] | Visit | Gynecology | DO Jackelyn Garcai | | | | | | [address] | | | | | | [place], [place] | | | | | | [address] | | | | | | [phone] | | | | | | | [...] | | | | | [place] [address] | | | | | | [phone] | | | | | | | | | | | | Azul Yeboah, | | | | | | MD [address] | | | | | | [place] | | | | | | [place] [address] | | | | | | [phone] | | | | | | | [...] | | | | | | [place] [address] | | | | | | [phone] | | | | | | | | +--------+ + + + + documented as of this encounter Visit Diagnoses + + | Diagnosis | + + | Radial styloid tenosynovitis - Primary | + + | Right wrist pain Pain in joint, forearm | + + documented in this encounter
--- OUTSIDE RECORDS SUMMARY | ~2020-02-18 | XMS | Encounter Summary ---
Demographics + + + | Address | [address] | | | [place] [address] | + + + | Home Phone [...] Providers + +------+ + | Care Rail Director Name | Role | Phone | + +------+ + PCP | Unavailable | + +------+ + Encounter Details +--------+ + + + + | Date | Type | Department | Care Team | Description | +--------+ + + + + | 11/17/ | [facility] | Denise Mcgregor | | | 2016 | Encounter | [facility] | G, FIREFIGHTING EQUIPMENT SPECIALIST | | | | | MEDICAL CLINIC [address] | | | | | | [address] [facility] [place], | | | | | | [place] [address] | | | | | | [phone] | | | +--------+ + + + [...] | | | | | [place] [address] | | | | | | [phone] | | | | | | | | | | | | Julia Fisher, | | | | | | PT | | +--------+ + + + + | 02/18/ | Appointment | Rehabilitation | Erika Ernst, | | | 2019 | | | DO [address] [place] | | | | | | [place] [address] | | | | | | [phone] | | | | | | | | | | | | Genesis Ayon OT | | +--------+ + + + + | 02/25/ | Office | Primary Care | Erika Ernst, | | | 2019 | Visit | | DO [address] [place] | | | | | | [place] [address] | | | | | | [phone] | | | | | | | [...] | | | | | [place] [address] | | | | | | [phone] | | | | | | | | +--------+ + + + + | 02/27/ | Appointment | Radiology | Dhara, | | | 2019 | | | DWAINE Ross [address] | | | | | | [address] [facility], | | | | | | [place] [address] | | | | | | [phone] | | | | | | | [...] [place] | | | | | | [place] [address] | | | | | | [phone] | | | | | | | [...] [place] | | | | | | [address] | | | | | | [phone] | | | | | | | [...] | | | | | [place] [address] | | | | | | [phone] | | | | | | | | | | | | Azul Yeboah, | | | | | | MD [address] | | | | | | [place] | | | | | | [place] [address] | | | | | | [phone] | | | | | | | [...] | | | | | | [place] [address] | | | | | | [phone] | | | | | | | | +--------+ + + + + documented as of this encounter Visit Diagnoses Not on filedocumented in this encounter"
--- OUTSIDE RECORDS SUMMARY | ~2020-02-18 | XMS | Encounter Summary ---
Demographics + + + | Address | [address] | | | [place] [address] | + + + | Home Phone [...] Team Providers + +------+ + | Care Animal Caregiver Name | Role | Phone | + [...] + + | Authorized | Specialty | Urology | Diagnoses | | [facility] | | | Services | | Hematuria, | [facility] | Urology [address] | | | Required | | unspecified | [place] mabry, | CHEKO CEBALLOS | | | | | type | CLINICAL NURSING COORDINATOR [address] | [address] [place] | | | | | Procedures | [address] | [place], [place] | | | | | [place] | [place], | [address] | | | | | | [place] [address] | Phone: | | | | | | Phone: | [phone] | | | | | | [phone] | Fax: | | | | | | Fax: | [phone] | | | | | | [phone] | | + + + + + + + Encounter Details +--------+ + + + + | Date | Type | Department | Care Team | Description | +--------+ + + + + | 01/01/ | Orders Only | [facility] [facility] | Harvey, | Hematuria, | | 2020 | | [facility] | [place], CLINICAL NURSING COORDINATOR [address] | unspecified type | | | | MEDICAL CLINIC [address] | [address] [place] | (Primary Dx) | | | | [address] [place], | [place] [address] | | | | | [place] [address] | [phone] | | | | | [phone] | | | +--------+ + + + [...] | | 2019 | | | DO [facility] | | | | | | [place] [address] | | | | | | [phone] | | | | | | | | | | | | Julia Fisher, | | | | | | PT | | +--------+ + + + + | 02/18/ | Appointment | Rehabilitation | Erika Ernst, | | | 2019 | | | DO [address] [place] | | | | | | [place] [address] | | | | | | [phone] | | | | | | | | | | | | Genesis Ayon OT | | +--------+ + + + + | 02/25/ | Office | Primary Care | Erika Ernst, | | | 2019 | Visit | | DO [address] [place] | | | | | | [place] [address] | | | | | | [phone] | | | | | | | [...] | | | | | [place] [address] | | | | | | [phone] | | | | | | | | +--------+ + + + + | 02/27/ | Appointment | Radiology | Dhara, | | | 2019 | | | DWAINE Ross [address] | | | | | | [address] [place], | | | | | | [place] [address] | | | | | | [phone] | | | | | | | [...] | | | | | [place] [address] | | | | | | [phone] | | | | | | | [...] [place] | | | | | | [address] | | | | | | [phone] | | | | | | | [...] | | | | | [place] [address] | | | | | | [phone] | | | | | | | | | | | | Azul Yeboah, | | | | | | MD [address] | | | | | | [place] | | | | | | [place] [address] | | | | | | [phone] | | | | | | | [...] | | | | | | [place] [address] | | | | | | [phone] | | | | | | | | +--------+ + + + + + + +--------+ + + | Name | Type | Priori | Associated Diagnoses | Order Schedule | | | | ty | | | + + +--------+ + + | * [facility] [facility] | Outpatient | Routin | Hematuria, | Ordered: 01/02/2020 | | [facility] | Referral | e | unspecified type | | | Referral | | | | | + + +--------+ + + documented as of this encounter Visit Diagnoses + + | Diagnosis | + + | Hematuria, unspecified type - Primary | + + documented in this encounter"
--- OUTSIDE RECORDS SUMMARY | ~2020-02-18 | XMS | Encounter Summary ---
Demographics + + + | Address | [address] | | | [place] [address] | + + + | Home Phone [...] Team Providers + +------+ + | Care Programmer Analyst Health It Name | Role | Phone | + [...] + + + + | 10/23/ | Telephone | [facility] | Jeffrey Gandhi, | Other | | 2020 | | [facility] | MD [address] | | | | | MEDICINE CHRIS | [place] [address] | | | | | [address] | [phone] | | | | | [place], [place] | | | | | | [address] | | | | | | [phone] | | | +--------+ + + + [...] | | | | | [place] [address] | | | | | | [phone] | | | | | | | | | | | | Julia Fisher, | | | | | | PT | | +--------+ + + + + | 02/18/ | Appointment | Rehabilitation | Erika Ernst, | | | 2019 | | | DO [address] | | | | | | [place] [address] | | | | | | [phone] | | | | | | | | | | | | Genesis Ayon OT | | +--------+ + + + + | 02/25/ | Office | Primary Care | Erika Ernst, | | | 2019 | Visit | | DO [address] | | | | | | [place] [address] | | | | | | [phone] | | | | | | | [...] | | | | | | [place] [address] | | | | | | [phone] | | | | | | | | +--------+ + + + + | 02/27/ | Appointment | Radiology | Dhara, | | | 2019 | | | [address] | | | | | | [address], | | | | | | [place] [address] | | | | | | [phone] | | | | | | | | +--------+ + + + + | 03/04/ | Appointment | Rehabilitation | Genesis Ayon OT | | | 2019 | | | | | +--------+ + + + + | 03/09/ | Office | Orthopedic Surgery | Jeffrey Gandhi, | | | 2019 | Visit | | MD [address] [facility] | | | | | | [place] [address] | | | | | | [phone] | | | | | | | [...] [place] | | | | | | [address] | | | | | | [phone] | | | | | | | [...] | | | | | [place] [address] | | | | | | [phone] | | | | | | | | | | | | Azul Yeboah, | | | | | | MD [address] | | | | | | [place] | | | | | | [place] [address] | | | | | | [phone] | | | | | | | [...] | | | | | | [place] [address] | | | | | | [phone] | | | | | | | | +--------+ + + + + documented as of this encounter Visit Diagnoses Not on filedocumented in this encounter"
--- OUTSIDE RECORDS SUMMARY | ~2020-02-18 | XMS | Encounter Summary ---
Demographics + + + | Address | [address] | | | [place] [address] | + + + | Home Phone [...] Team Providers + +------+ + | Care Python Web Developer Name | Role | Phone | + +------+ + PCP | Unavailable | + +------+ + Encounter Details +--------+ + + + + | Date | Type | Department | Care Team | Description | +--------+ + + + + | 01/18/ | [facility] | [facility] | Amaya Varner NP | | | 2017 | Encounter | [facility] | [address] | | | | | [facility] [address] | [place], [place] | | | | | [address] [place], | [address] | | | | | [place] [address] | [phone] | | | | | [phone] | | | +--------+ + + + [...] | | | | | [place] [address] | | | | | | [phone] | | | | | | | | | | | | Julia Fisher, | | | | | | PT | | +--------+ + + + + | 02/18/ | Appointment | Rehabilitation | Erika Ernst, | | | 2019 | | | DO [address] | | | | | | [place] [address] | | | | | | [phone] | | | | | | | | | | | | Genesis Ayon, SUSAN | | +--------+ + + + + | 02/25/ | Office | Primary Care | Erika Ernst, | | | 2019 | Visit | | DO [address] [place] [address] | | | | | | [place] [address] | | | | | | [phone] | | | | | | | [...] | | | | | [place] [address] | | | | | | [phone] | | | | | | | | +--------+ + + + + | 02/27/ | Appointment | Radiology | Dhara, | | | 2019 | | | [address] | | | | | | [address] [place], | | | | | | [place] [address] | | | | | | [phone] | | | | | | | | +--------+ + + + + | 03/04/ | Appointment | Rehabilitation | Genesis Ayon OT | | | 2019 | | | | | +--------+ + + + + | 03/09/ | Office | Orthopedic Surgery | Jeffrey Gandhi, | | | 2019 | Visit | | [address] | | | | | | [facility] [address] | | | | | | [phone] | | | | | | | [...] [place] | | | | | | [address] | | | | | | [phone] | | | | | | | [...] | | | | | [place] [address] | | | | | | [phone] | | | | | | | | | | | | Azul Yeboah, | | | | | | MD [address] | | | | | | [place] | | | | | | [place] [address] | | | | | | [phone] | | | | | | | [...] | | | | | | [place] [address] | | | | | | [phone] | | | | | | | | +--------+ + + + + documented as of this encounter Visit Diagnoses Not on filedocumented in this encounter"
--- OUTSIDE RECORDS SUMMARY | ~2020-02-18 | XMS | Encounter Summary ---
Demographics + + + | Address | [address] | | | [place] [address] | + + + | Home Phone | | + + + | Preferred Language | Unknown | + + + | Marital Status | Single | + + + | Temple Affiliation | Unknown | + + + | Race | Unknown | + + + | Ethnic Group | Unknown | + + + Author + + + | Author | [facility] | | | and [place] | + + + | Organization | [facility] | | [...] Team Providers + +------+ + | Care Electric Train Driver Name | Role | Phone | + +------+ + | Erika Ernst DO | PCP | | + +------+ + Reason for Visit + + + | Reason | Comments | + + + | Medication Refill | Qvar Inhaler | + + + Encounter Details +--------+ + + + + | Date | Type | Department | Care Team | Description | +--------+ + + + + | 08/10/ | Clinical | [place] [facility] | Maryse Langford | | | 2019 | Support | [facility] | DWAINE Huynh | | | | | [facility] [address] | [address] | | | | | [address] [place], | [place] [address] | | | | | [place] [address] | [phone] | | | | | [phone] | | | +--------+ + + + [...] documented as of this encounter Progress Notes Eliu Miller CC CMA - 08/10/2019 1:30 PM PSTPt presented to the clinic w/ash leija rgding inhaler dosing and refills. Pt stated that her Qvar inhaler was originally prescri bed w/the following instructions: -4 puffs twice daily (chart reflects). However her most re cent script was ordered as 2 puffs BID and the pharmacy told her that they made a mistake an d have been filling it as 4 puffs BID. Pt would like to know if Dr. Ernst wants her using 2 or 4 puffs BID and she also sent in a refill (see alt enctr) since she will run out in 2wks at 4 puffs BID. BRISA Blakely CMA document ed in this encounter Plan of Treatment +--------+ + + + + | Date | Type | Specialty | Care Team | Description | +--------+ + + + + | 02/18/ | Appointment | Rehabilitation | Erika Ernst, | | | 2019 | | | DO [address] | | | | | | [place] [address] | | | | | | [phone] | | | | | | | | | | | | Julia Fisher, | | | | | | PT | | +--------+ + + + + | 02/18/ | Appointment | Rehabilitation | Erika Ernst, | | | 2019 | | | DO [address] | | | | | | [place] [address] | | | | | | [phone] | | | | | | | | | | | | Genesis Ayon OT | | +--------+ + + + + | 02/25/ | Office | Primary Care | Erika Ernst, | | | 2019 | Visit | | DO [address] | | | | | | [place] [address] | | | | | | [phone] | | | | | | | [...] | | | | | [place] [address] | | | | | | [phone] | | | | | | | | +--------+ + + + + | 02/27/ | Appointment | Radiology | Dhara, | | | 2019 | | | [address]WA[address] [place], | | | | | | [place] [address] | | | | | | [phone] | | | | | | | | +--------+ + + + + | 03/04/ | Appointment | Rehabilitation | Genesis Ayon OT | | | 2019 | | | | | +--------+ + + + + | 03/09/ | Office | Orthopedic Surgery | Jeffrey Gandhi, | | 2019 | Visit | | [place] [address] | | | | | | [place] [address] | | | | | | [phone] | | | | | | | [...] [place] | | | | | | [address] | | | | | | [phone] | | | | | | | [...] | | | | | [place] [address] | | | | | | [phone] | | | | | | | | | | | | Azul Yeboah, | | | | | | MD [address] | | | | | | [place] | | | | | | [place] [address] | | | | | | [phone] | | | | | | | [...] | | | | | | [place] [address] | | | | | | [phone] | | | | | | | | +--------+ + + + + documented as of this encounter Visit Diagnoses Not on filedocumented in this encounter"
--- OUTSIDE RECORDS SUMMARY | ~2020-02-18 | XMS | Encounter Summary ---
Demographics + + + | Address | [address] | | | [place] [address] | + + + | Home Phone [...] Team Providers + +------+ + | Care Operations Tech Name | Role | Phone | + +------+ + | Erika Ernst DO | PCP | | + +------+ + Reason for Visit +--------+ + | Reason | Comments | +--------+ + | Other | skin peeling on right arm x 1 day. | +--------+ + Encounter Details +--------+---------+ + + + | Date | Type | Department | Care Team | Description | +--------+---------+ + + + | 12/21/ | Office | [place] [facility] | Camille Bush, | Excoriation of | | 2019 | Visit | [facility] | BOTTOM LINER [address] [facility] | forearm, right, | | | | [facility] [address] | [facility] [place] [address] | initial encounter | | | | [address] [facility], | [phone] | (Primary Dx) | | | | [place] [address] | | | | | | [phone] | | | +--------+---------+ + + + [...] + + + | Blood Pressure | 130/94 | 12/21/2018 2:09 PM | | | | | PDT | | + + + + + | Pulse | 90 | 12/21/2018 2:09 PM | | | | | PDT | | + + + + + | Temperature | 36.5 C (97.7 F) | 12/21/2018 2:09 PM | | | | | PDT | | + + + + + | Respiratory Rate | 16 | 12/21/2018 2:09 PM | | | | | PDT | | + + + + + | Oxygen Saturation | 99% | 12/21/2018 2:09 PM | | | | | PDT | | + + + + + | Inhaled Oxygen | - | - | | | Concentration | | | | + + + + + | Weight | 167.8 kg (370 lb) | 12/21/2018 2:09 PM | | | | | PDT | | + + + + + | Height | 177.8 cm (5' 10") | 12/21/2018 2:09 PM | | | | | PDT | | + + + + + | Body Mass Index | 53.09 | 12/21/2018 2:09 PM | | | | | PDT | | + + + + + documented in this encounter Patient Instructions Patient Instructions Camille Bush FNP - 12/21/2018 2:33 PM PDT Abrasions Abrasions are skin scrapes. Their treatment depends on how large and deep the abrasion is. Home care You may be prescribed an antibiotic cream or ointment to apply to the wound. This helps pre vent infection. Follow instructions when using this medicine. General care To care for the abrasion, do the following each day for as long as directed by your [facility]. ? If you were given a bandage, change it once a day. If your bandage sticks to the wound, s oak it in warm water until it loosens. ? Wash the area with soap and warm water. You may do this in a sink or under a tub faucet o r shower. Rinse off the soap. Then pat the area dry with a clean towel. ? If antibiotic ointment or cream was prescribed, reapply it to the wound as directed. [place] r the wound with a fresh nonstick bandage. If the bandage becomes wet or dirty, change it as soon as possible. ? Some antibiotic ointments or cream can cause an allergic reaction or dermatitis. This may cause redness, itching and or hives. If this occurs, stop using the ointment immediately an d wash off any remaining ointment. You may need to take some allergy medicine to relieve sym ptoms. You may use acetaminophen or ibuprofen to control pain unless another pain medicine was prescribed.Talk with your healthcare provider before using these medicines if you have chr onic liver or kidney disease or ever had a stomach ulcer or GI bleeding. Don t use ibuprof en in children younger than six months old. Most skin wounds heal within 10 days. But an infection may occur even with treatment. So it s important to watch the wound for signs of infection as listed below. Follow-up care Follow up with your healthcare provider, or as advised. When to seek medical advice Call your healthcare provider right away if any of these occur: Fever of 100.4F (38C) or higher, or as directed by your healthcare provider Increasing pain, redness, swelling, or drainage from the wound Bleeding from the wound that does not stop after a few minutes of steady, firm pressure Decreased ability to move any body part near the wound Date Last Reviewed: 12/02/201619992672-4561 [employer]. [address] [place] [address]. All righ ts reserved. This information is not intended as a substitute for professional medical care. Always follow your healthcare professional's instructions. documented in this encounter Progress Notes Camille Bush FNP - 12/21/2018 2:30 PM PDTFormatting of this note might be different hannah tan the original. Subjective: Patient ID: Andrea Suh is a 28 y.o. female. Chief Complaint Patient presents with Other skin peeling on right arm x 1 day. HPI She presents with one day of having done Graftin scraping with Ocupational therapy for scar tissue on her right forearm today and now she has swelling and some redness where the scrap ing procedure was done on her right forearm. She feels like the area is getting more red and painful. No history of MRSA. She has been trying ibuprofen and taking the K-T tape off. Past Medical History: Diagnosis Date Allergic rhinitis Anemia Asthma Dysmenorrhea Hypertension Hypothyroid Iron deficiency Obesity ALVAREZ (obstructive sleep apnea) Periodontal disease, unspecified TMJ pain dysfunction syndrome Review of Systems Constitutional: Negative for chills and fever. Allergies Allergen Reactions Escitalopram Palpitations Latex Rash Hydrocodone Hives Norethindrone Oxycodone Uncoded Nonscreenable Allergen Other (See Comments) Other reaction(s): Proclivity to C-diff with certain antibiotics Adhesive & Tape Rash Patient Active Problem List Diagnosis Date Noted POA Acute pain of right knee 12/13/2018 Unknown [...] serious comorbidity in adult Unknown Current Outpatient Prescriptions on File Prior to Visit Medication Sig Dispense Refill albuterol-ipratropium (COMBIVENT RESPIMAT) 100-20 mcg/puff inhaler Inhale 1 puff into t he lungs every 4 hours as needed for Shortness of Breath. (Patient not taking: Reported on ) 1 Inhaler 5 azelastine 0.1% nasal spray instill 1 to 2 spray into each nostril twice a day if neede d 1 budesonide-formoterol (SYMBICORT) 160-4.5 mcg/puff inhaler Inhale 2 puffs into the lung s 2 times daily. busPIRone (BUSPAR) 15 mg tablet Take 15 mg BID (Patient not taking: Reported on 12/22/19 19) 60 tablet 5 Cetirizine HCl (ZYRTEC PO) Take by mouth. Once a week Cholecalciferol (VITAMIN D3) 73045 units TABS Take 1 tablet by mouth Once a week for 16 doses. (Patient not taking: Reported on 12/21/2018) 16 tablet 0 diclofenac (VOLTAREN) 1% GEL Apply 4 g topically 3 times daily. (Patient not taking: Re ported on 12/21/2018) 100 g 1 diphenhydrAMINE (BENADRYL) 25 MG capsule Take 25 mg by mouth nightly as needed for Itch ing. meclizine (ANTIVERT) 12.5 mg tablet Take 1 tablet by mouth every 6 hours as needed. Prn dizziness (Patient not taking: Reported on 12/21/2018) 60 tablet 0 montelukast (SINGULAIR) 10 mg tablet Take 1 tablet by mouth nightly. (Patient not takin g: Reported on 12/21/2018) 30 tablet 11 QVAR REDIHALER 80 MCG/ACT inhaler 0 No current facility-administered medications on file prior to visit. Objective: Vitals: 12/21/18 1409 BP: (!) 130/94 Pulse: 90 Resp: 16 Temp: 36.5 C (97.7 F) PainSc: 4 PainLoc: Arm Physical Exam Skin: Rash noted. Right forearm has skin and light pink colored colored excoriations that are superficial wit hout bleeding, streaking, or induration. No results found for this or any previous visit (from the past 24 hour(s)). None Assessment: 1. Excoriation of forearm, right, initial encounter - mupirocin (BACTROBAN) 2% ointment; apply to affected area 3 times per day for the next 10 days. Dispense: 22 g; Refill: 1 Plan: May leave open to air. Warm compress to site 4x/daily OTC ibuprofen or tylenol as needed for pain per guidelines. Return in about 3 days (around 12/24/2018) for If no improvemnet or sooner if acutely worsen ing., With your PCP. Electronically Signed by CAITIE WoodruffP3/14:37 [facility] documented in this en counter Plan of Treatment +--------+ + + + + | Date | Type | Specialty | Care Team | Description | +--------+ + + + + | 02/18/ | Appointment | Rehabilitation | Erika Ernst, | | | 2019 | | | DO [facility] | | | | | | [facility] [place] [address] | | | | | | [phone] | | | | | | | | | | | | Julia Fisher, | | | | | | PT | | +--------+ + + + + | 02/18/ | Appointment | Rehabilitation | Erika Ernst, | | | 2019 | | | DO [address] | | | | | | [place] [address] | | | | | | [phone] | | | | | | | | | | | | Genesis Ayon, SUSAN | | +--------+ + + + + | 02/25/ | Office | Primary Care | Erika Ernst, | | | 2019 | Visit | | DO [address] | | | | | | [place] [address] | | | | | | [phone] | | | | | | | [...] | | | | | [place] [address] | | | | | | [phone] | | | | | | | | +--------+ + + + + | 02/27/ | Appointment | Radiology | Dhara, | | | 2019 | | | [address] | | | | | | [address] [place], | | | | | | [place] [address] | | | | | | [phone] | | | | | | | [...] | | | | | [place] [address] | | | | | | [phone] | | | | | | | [...] [place] | | | | | | [address] | | | | | | [phone] | | | | | | | [...] | | | | | [place] [address] | | | | | | [phone] | | | | | | | | | | | | Azul Yeboah, | | | | | | MD [address] | | | | | | [place] | | | | | | [place] [address] | | | | | | [phone] | | | | | | | [...] | | | | | | [place] [address] | | | | | | [phone] | | | | | | | | +--------+ + + + + documented as of this encounter Visit Diagnoses + + | Diagnosis | + + | Excoriation of forearm, right, initial encounter - Primary | + + documented in this encounter
--- OUTSIDE RECORDS SUMMARY | ~2020-02-18 | XMS | Encounter Summary ---
Demographics + + + | Address | [address] | | | [place] [address] | + + + | Home Phone [...] Team Providers + +------+ + | Care Warp Changer Name | Role | Phone | + [...] Closed | | Radiology | Diagnoses | Tank Herron Wgr Xray | | | | | Right foot | Herbert L, | [address] | | | | | pain Status | [place] [address] | [place] | | | | | post right | [address] | [place], [place] | | | | | foot surgery | [place] | [address] | | | | | Swelling | [place], [place] | Phone: | | | | | of foot | [address] | [phone] | | | | | joint, right | | Fax: | | | | | Procedures | | [phone] | | | | | MRI Foot | | | | | | | Right wo | | | | | | | Contrast | | | +--------+--------+ + + + + Reason for Visit +--------+ + | Reason | Comments | +--------+ + | Other | R Ankle pain onset about 2 months ago | +--------+ + Evaluate & Treat (Routine) +--------+ + [...] | subsequent | [place], | [place] | | | | | encounter | [place] [address] | [place], [place] | | | | | Procedures | Phone: | [phone] | | | | | [place] | [phone] | Phone: | | | | | | Fax: | [phone] | | | | | | [phone] | Fax: | | | | | | | [phone] | +--------+ + + + + + Encounter Details +--------+---------+ + + + | Date | Type | Department | Care Team | Description | +--------+---------+ + + + | 07/23/ | Office | [place] [facility] | Herbert Herron | Right foot pain | | 2019 | Visit | [facility] | LISA Abad | (Primary Dx); Status | | | | [address] [place] | | post right foot | | | | [place] | | surgery; Swelling of | | | | [address] | | foot joint, right | | | | [phone] | | | +--------+---------+ + + + [...] +---------+ + + | Blood Pressure | 121/80 | 07/23/2019 4:00 PM | | | | | PDT | | + +---------+ + + | Pulse | 78 | 07/23/2019 4:00 PM | | | | | PDT | | + +---------+ + + | Temperature | - | - | | + +---------+ + + | Respiratory Rate | 20 | 07/23/2019 4:00 PM | | | | | PDT | | + +---------+ + + | Oxygen Saturation | 98% | 07/23/2019 4:00 PM | | | | | PDT [...] in this encounter Patient Instructions Patient Instructions Herbert Herron PA - 07/23/2019 4:00 PM PDT Prone hip extension: Lie on your stomach with your legs straight out behind you. Fold your arms under your head and rest your head on your arms. Draw your belly button in towards your spine and tighten your abdominal muscles. Tighten the buttocks and thigh muscles of the leg on your injured side and lift the leg off the floor about 8 inches. Keep your leg straight. Hold for 5 seconds. Then lower your leg and relax. Do 2 sets of 15. Side-lying leg lift: Lie on your uninjured side. Tighten the front thigh muscles on your in jured leg and lift that leg 8 to 10 inches (20 to 25 centimeters) away from the other leg. K eep the leg straight and lower it slowly. Do 2 sets of 15. Towel stretch: Sit on a hard surface with your injured leg stretched out in front of you. L oop a towel around your toes and the ball of your foot and pull the towel toward your body k eeping your leg straight. Hold this position for 15 to 30 seconds and then relax. Repeat 3 t imes. Standing calf stretch: Stand facing a wall with your hands on the wall at about eye level. Keep your injured leg back with your heel on the floor. Keep the other leg forward with the knee bent. Turn your back foot slightly inward (as if you were pigeon-toed). Slowly lean int o the wall until you feel a stretch in the back of your calf. Hold the stretch for 15 to 30 seconds. Return to the starting position. Repeat 3 times. Do this exercise several times eac h day. Heel raise: Stand behind a chair or counter with both feet flat on the floor. Using the kareem ir or counter as a support, rise up onto your toes and hold for 5 seconds. Then slowly lower yourself down without holding onto the support. (It's OK to keep holding onto the support i f you need to.) When this exercise becomes less painful, try doing this exercise while you a re standing on the injured leg only. Repeat 15 times. Do 2 sets of 15. Rest 30 seconds betwe en sets. Step-up: Stand with the foot of your injured leg on a support 3 to 5 inches (8 to 13 centim eters) high --like a small step or block of wood. Keep your other foot flat on the floor. Sh ift your weight onto the injured leg on the support. Straighten your injured leg as the othe r leg comes off the floor. Return to the starting position by bending your injured leg and s lowly lowering your uninjured leg back to the floor. Do 2 sets of 15. Balance and reach exercises: Stand next to a chair with your injured leg farther from the c hair. The chair will provide support if you need it. Stand on the foot of your injured leg a nd bend your knee slightly. Try to raise the arch of this foot while keeping your big toe on the floor. Keep your foot in this position. With the hand that is farther away from the kareem ir, reach forward in front of you by bending at the waist. Avoid bending your knee any more as you do this. Repeat this 15 times. To make the exercise more challenging, reach farther i n front of you. Do 2 sets of 15. While keeping your arch raised, reach the hand that is fart her away from the chair across your body toward the chair. The farther you reach, the more c hallenging the exercise. Do 2 sets of 15. What is a posterior tibial tendon injury? A posterior tibial tendon injury is a problem with the tendons and muscles that extend from the back of your lower leg to your inner ankle and foot. Tendons are strong bands of tissue that attach muscle to bone. You use the posterior tibial tendon when you point your foot do wn and in, stand on your toes, and when you walk or run. Tendons can be injured suddenly or they may be slowly damaged over time. You can have tiny or partial tears in your tendon. If you have a complete tear of your tendon, it s called a rupture. Other tendon injuries may be called a strain, tendinosis, or tendonitis. What is the cause? A posterior tibial tendon injury can be caused by: Overuse of the tendon, such as from lots of running, intense exercise, or sports training o r from doing a lot of work that causes you to bend at the knees and ankles. A sudden activity that twists or tears your tendon, such as jumping, starting to sprint, or a fall. You are more likely to have a posterior tendon problem if you have a problem called over-pr onation, which happens when your feet roll inward and your arch flattens out more than ricardo l when you walk or run. What are the symptoms? Symptoms may include: Pain or tenderness on the inner side of the longo, ankle, or foot Pain with lifting your foot Pain when you walk or run How is it diagnosed? Your healthcare provider will examine you and ask about your symptoms, activities, and medi morales history. You may have X-rays or other scans. How is it treated? You will need to change or stop doing the activities that cause pain until the tendon has h ealed. For example, you may need to swim instead of run. Your healthcare provider may recommend stretching and strengthening exercises to help you h eal. Special shoes or shoe inserts may help. If you have a severe injury, your healthcare provider may put your leg in a splint or cast for several weeks to keep it from moving while it heals. You may need to use crutches until you can walk without pain. The pain often gets better within a few weeks with self-care, but some injuries may take se veral months or longer to heal. It s important to follow all of your healthcare provider s instructions. How can I take care of myself? To help relieve swelling and pain: Put an ice pack, gel pack, or package of frozen vegetables wrapped in a cloth, on the area every 3 to 4 hours for up to 20 minutes at a time. Do ice massage. To do this, first freeze water in a Styrofoam cup, then peel the top of the cup away to expose the ice. Hold the bottom of the cup and rub the ice over your tendon for 5 to 10 minutes. Do this several times a day while you have pain. Keep your lower leg and foot up on a pillow when you sit or lie down. Take pain medicine, such as acetaminophen, ibuprofen, or other medicine as directed by your provider. Nonsteroidal anti-inflammatory medicines (NSAIDs), such as ibuprofen, may cause s tomach bleeding and other problems. These risks increase with age. Read the label and take a s directed. Unless recommended by your healthcare provider, do not take for more than 10 day s. Moist heat may help relax your muscles and make it easier to move your leg. Put moist heat on the injured area for 10 to 15 minutes at a time before you do warm-up and stretching exer cises. Moist heat includes heat patches or moist heating pads that you can purchase at most [employer], a wet washcloth or towel that has been heated in the dryer, or a hot shower. Don t use heat if you have swelling. Follow your healthcare provider's instructions, including any exercises recommended by your provider. Ask your provider: How and when you will hear your test results How long it will take to recover What activities you should avoid, including how much you can lift, and when you can return to your normal activities How to take care of yourself at home What symptoms or problems you should watch for and what to do if you have them Make sure you know when you should come back for a checkup. How can I help prevent a posterior tibial tendon injury? Warm-up exercises and stretching before activities can help prevent injuries. If your longo, ankle, or foot hurts after exercise, putting ice on it may help keep it from getting injure d. Follow safety rules and use any protective equipment recommended for your work or sport. Fo r example, wear the right type of shoes for your activities. Taping your foot can give extra support to your arch. Developed by [employer]. Published by [employer]. Copyright 2014 [employer] and/or one of its subsidiaries. All rights reserved. documented in this encounter Progress Notes Herbert Herron PA - 07/23/2019 4:00 PM PDT Date of Service: 07/23/2019 Provider: LISA Marshall Pt. Name/Age/: Andrea Suh 29 y.o. 1990 Date of Evaluation: 07/23/2019 Chief Complaint Patient presents with Other R Ankle pain onset about 2 months ago Orthopedic Clinic Visit Chief complaint: Right foot pain and swelling. HISTORY OF PRESENT ILLNESS Andrea Suh is a 29 y.o. female presents for evaluation of right foot pain and swell ing. Patient reports that over the last 2 months or so she has had pain and swelling in the proximal medial aspect of the right foot. She does not recall any specific mechanism of inju ry. This is typically worsened with weightbearing activities. And, she notes that toward the end of the day pain and swelling is worse. Patient is concerned for this ongoing pain as it is in the area where she had a surgery in 2016. Patient had a history of accerssory navicul ar causing pain. She had surgery to excise the accessory navicular and reconstruction of the posterior tibialis tendon anchoring it down to her true navicular bone. Patient reports ravinder t after recovery from surgery, she has not had any persistent problems with pain in the foot until recently. Patient has tried rest, activity modifications, icing, elevation, and anti-inflammatory med ications. Patient was evaluated by her PCP and has been conducting home exercise program. PAST MEDICAL HISTORY Reviewed obesity PAST SURGICAL HISTORY Reviewed right foot assess recovery navicular excision and posterior tibial tendon rele ase and repair (Kidner procedure) 2016 MEDICATIONS Reviewed ALLERGIES Allergies Allergen Reactions Latex Rash Lexapro [Escitalopram] Palpitations Deblitane [Norethindrone] Hydrocodone Hives Milk Unknown Nickel Dermatitis, Itching and Swelling Uncoded Nonscreenable Allergen Other (See Comments) Other reaction(s): Proclivity to C-diff with certain antibiotics Adhesive & Tape Rash SOCIAL HISTORY Reviewed FAMILY HISTORY Family History Problem Relation Age of Onset Other (see comment) Mother gallbladder disease Diabetes Mother Heart disease Mother Hypertension Father Other (see comment) Father arrhymthmia Breast cancer Sister Breast cancer Maternal Grandmother Heart attack Maternal Aunt NM Hypertension Maternal Uncle Review of systems: Patient denies any nausea/vomiting, fevers, chills, chest pain, shortne ss of breath, difficulty breathing Physical exam: BP 121/80 | Pulse 78 | Resp 20 | LMP 07/15/2019 (Exact Date) | SpO2 98% BMI: There is no height or weight on file to calculate BMI. General: Patient is of normal development. Groomed and in a good nutritional state. Aler t and oriented x3. HEENT: Head is normocephalic & atraumatic Respiratory: Chest rise is symmetric. No conversational dyspnea or audible wheezing is hank reciated on exam. Respiratory rate is normal. Cardiovascular: Pedal pulses 1+, capillary refill less than 2 seconds Neuro: distal motor function and sensation light touch is grossly intact Skin: No erythema, ecchymosis, or edema. No heat touch. Skin is intact. Musculoskeletal: Right ankle: No ecchymosis. No appreciable effusion. No apparent deformity . No TTP demonstrated about the ankle. Negative syndesmosis squeeze. No pain with range of m otion demonstrating 40 dorsiflexion, 30 plantar flexion, 40 inversion, 30 eversion. Right foot: No apparent deformity. Mild swelling over the proximal medial foot over the pilar icular bone. Tenderness palpation over the navicular bone and the area around the surgical s car that appears well healed over the navicular bone. No increased pain with range of motion of the foot, digits, or ankle (active, passive, or resisted). No hypoesthesia or paresthesi a about the foot. Imaging: Recent Results (from the past 360 hour(s)) XR Ankle Right 3 + Vw Narrative EXAMINATION: XR ANKLE RIGHT 3 + VW HISTORY: right ankle pain , prior surgery COMPARISON STUDY: 01/22/2015. 05/02/2019. FINDINGS: Images in multiple views showed no significant soft tissue or bony abnormality. If concern for acute fracture remains clinically follow-up images in 10 to 14 days recommen ded. No distinct joint degenerative changes. The ankle mortise is not widened.. Impression No acute finding Dictated by: Chris Bedolla Foot Right 3 + Vw Narrative EXAMINATION: XR FOOT RIGHT 3 + VW HISTORY: Navicular pain, swelling over navicular. H/O foot surgery 2016 (excision accesory navicular ) COMPARISON STUDY: 03/14/2018. 03/07/2016. 01/22/2015. 04/06/2014. FINDINGS: No acute bone finding. No joint space narrowing evident. The navicula appears unremarkabl e. If concern for acute fracture remains clinically follow-up images in 10 to 14 days recommen ded. . Impression 1. No acute finding. 2. 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 Dictated by: Chris Bedolla Right ankle and foot plain film radiographs above were reviewed and interpreted by me. Ailin doss with radiology findings - no significant findings appreciated. All pertinent imaging resu lts were discussed with patient on today's visit. Laboratory: None Assessment 1. Right foot pain and swelling 2. History of right foot surgery Plan: We discussed possible etiologies of patient's right foot pain and swelling. I am uncertain as to the cause, as clinical exam findings that would normally associated with a tendon inju ry are not evident on exam. Additionally, her plain film radiographs are unremarkable. We di scussed utility of advanced imaging and agreed to proceeding with MRI is probably best consi dering her history of surgery. MRI ordered. We will call with results once available. Continue with RICE therapy and anti-inflammatories as needed. I provided a handout and inst ruction on home exercise program. Electronically signed by: Herbert Herron PA-C 07/23/2019 17:16 CC: Erika Ernst DO No ref. provider found Note: Part of this report was transcribed using voice recognition software. Every effort wa s made to ensure accuracy. However, inadvertent computerized traffic analysis technician errors may be pre sent. documented in thi s encounter Plan of Treatment +--------+ + + + + | Date | Type | Specialty | Care Team | Description | +--------+ + + + + | 02/18/ | Appointment | Rehabilitation | Erika Ernst, | | 2019 | | | DO | | | | | | [place] [address] | | | | | | [phone] | | | | | | | | | | | | Julia Fisher, | | | | | | PT | | +--------+ + + + + | 02/18/ | Appointment | Rehabilitation | Erika Ernst, | | | 2019 | | | DO [address] [place] | | | | | | [place] [address] | | | | | | [phone] | | | | | | | | | | | | Genesis Ayon OT | | +--------+ + + + + | 02/25/ | Office | Primary Care | Erika Ernst, | | | 2019 | Visit | | DO [address] [place] | | | | | | [place] [address] | | | | | | [phone] | | | | | | | [...] | | | | | [place] [address] | | | | | | [phone] | | | | | | | | +--------+ + + + + | 02/27/ | Appointment | Radiology | Dhara, | | | 2019 | | | [address] | | | | | | [address] [facility], | | | | | | [place] [address] | | | | | | [phone] | | | | | | | | +--------+ + + + + | 03/04/ | Appointment | Rehabilitation | Genesis Ayon OT | | | 2019 | | | | | +--------+ + + + + | 03/09/ | Office | Orthopedic Surgery | Jeffrye Gandhi, | | 2019 | Visit | | [address] | | | | | | [place] [address] | | | | | | [phone] | | | | | | | [...] [place] | | | | | | [address] | | | | | | [phone] | | | | | | | [...] | | | | | [place] [address] | | | | | | [phone] | | | | | | | | | | | | Azul Yeboah, | | | | | | MD [address] | | | | | | [place] | | | | | | [place] [address] | | | | | | [phone] | | | | | | | | +--------+ + + + + | 04/08/ | Appointment | Nutrition | Janel Webster | | 2019 | | | Donte, RD | | +--------+ + + + + | 05/21/ Office | Neurology | Dhara, | | | 2019 | Visit | | [address] [place], | | | | | | [place] [address] | | | | | | [phone] | | | | | | | | +--------+ + + + + documented as of this encounter Results MRI Foot Right wo Contrast (09/20/2019 5:53 PM PST) + + | Specimen | + + | | + + + + + | Impressions | Performed At | + + + | 1. Evidence of prior surgery at the medial navicula. Note from | [facility] | | Jeffrey Gandhi MD, [facility], 09/19/19 describes | | | history of Kidner procedure performed Wheeler 2016. The findings on | | | the current study are compatible with this history. The tibialis | | | posterior tendon does appear intact. 2. No acute finding identified. | | | Dictated by: Chris Bedolla | | + + + + + + | Narrative | Performed At | + + + | EXAMINATION: MRI ankle without contrast HISTORY: Medial right | [facility] | | foot pain and swelling, history of a sensory navicular excision 2016 | | | COMPARISON STUDY: Foot x-ray 06/22/2012. Foot x-ray 07/23/2019. | | | The x-ray 03/14/2018. TECHNIQUE: Multiplanar multisequence MRI | | | of the ankle is performed without contrast. FINDINGS: Patient | | | motion is present a multiple sequences which does limit fine detail. | | | Lateral ankle complex: The anterior talofibular ligament is intact. | | | The posterior talofibular ligament is intact. The calcaneofibular | | | ligament is intact. The peroneus longus and brevis tendons are | | | intact. Medial ankle complex: The deltoid ligament appears | | | inhomogeneous in signal. No fluid collections seen in the region. | | | The medial ankle tendons are intact. The tibialis posterior tendon | | | does project to the medial margin of the navicula and appears | | | attached surgically. Ankle syndesmosis: The tibiofibular recess | | | demonstrates no abnormal fluid collection.. Spring ligament | | | complex: The medioplantar oblique calcaneonavicular ligament is | | | intact. The inferoplantar longitudinal calcaneonavicular ligament is | | | not identified. This finding may relate to the image acquisition | | | plane captured. Postsurgical changes could result in | | | nonvisualization of the finding. . The superomedial | | | calcaneonavicular ligament is not optimally demonstrated which may | | | relate to the image acquisition plane captured and or patient motion | | | which is present.. The sinus tarsi signal is normal. Bone signal | | | normal. At the medial navicula a linear hypointense T1 signal | | | approximate 15 mm region is noted extending to the medial surface | | | compatible with prior surgery. | | + + + + + | Procedure Note | + + | Mitchel, Rad Results In - 09/21/2019 8:06 AM PST EXAMINATION:MRI ankle without | | contrastHISTORY:Medial right foot pain and swelling, history of a sensory navicular | | excision 2016COMPARISON STUDY:Foot x-ray 06/22/2012. Foot x-ray 07/23/2019. The x-ray | | 03/14/2018.TECHNIQUE:Multiplanar multisequence MRI of the ankle is performed without | | contrast.FINDINGS:Patient motion is present a multiple sequences which does limit fine | | detail.Lateral ankle complex:The anterior talofibular ligament is intact.The posterior | | talofibular ligament is intact.The calcaneofibular ligament is intact.The peroneus | | longus and brevis tendons are intact.Medial ankle complex: The deltoid ligament appears | | inhomogeneous in signal. No fluid collections seen in the region.The medial ankle | | tendons are intact. The tibialis posterior tendon does project to the medial margin of | | the navicula and appears attached surgically.Ankle syndesmosis:The tibiofibular recess | | demonstrates no abnormal fluid collection..Spring ligament complex:The medioplantar | | oblique calcaneonavicular ligament is intact.The inferoplantar longitudinal | | calcaneonavicular ligament is not identified. This finding may relate to the image | | acquisition plane captured. Postsurgical changes could result in nonvisualization of | | the finding. .The superomedial calcaneonavicular ligament is not optimally demonstrated | | which may relate to the image acquisition plane captured and or patient motion which is | | present..The sinus tarsi signal is normal.Bone signal normal. At the medial navicula a | | linear hypointense T1 signal approximate 15 mm region is noted extending to the medial | | surface compatible with prior surgery.IMPRESSION: 1. Evidence of prior surgery at the | | medial navicula. Note from Jeffrey Gandhi MD, [facility], 09/19/19 | | describes history of Kidner procedure performed Wheeler 2015. The findings on the current | | study are compatible with this history. The tibialis posterior tendon does appear | | intact.2. No acute finding identified.Dictated by: Chris Bedolla | |The tibiofibular recess demonstrates no abnormal fluid collection.. | | | |Spring ligament complex: | |The medioplantar oblique calcaneonavicular ligament is intact. | |The inferoplantar longitudinal calcaneonavicular ligament is not identified. This finding may relate to the image acquisition plane captured. Postsurgical changes could result in no nvisualization of the finding. . | |The superomedial calcaneonavicular ligament is not optimally demonstrated which may relate to the image acquisition plane captured and or patient motion which is present.. | | | |The sinus tarsi signal is normal. | |Bone signal normal. At the medial navicula a linear hypointense T1 signal approximate 15 m m region is noted extending to the medial surface compatible with prior surgery. | | | |IMPRESSION: | |1. Evidence of prior surgery at the medial navicula. Note from Jeffrey Gandhi MD, [facility], 09/19/19 describes history of Kidner procedure performed Wheeler 2015. The findings on the current study are compatible with this history. | |The tibialis posterior tendon does appear intact. | |2. No acute finding identified. | | | |Dictated by: Chris Bedolla [...] | + + | Right foot pain - Primary Pain in limb | + + | Status post right foot surgery | + + | Swelling of foot joint, right | + + documented in this encounter"
--- OUTSIDE RECORDS SUMMARY | ~2020-02-18 | XMS | Encounter Summary ---
Demographics + + + | Address | [address] | | | [place] [address] | + + + | Home Phone [...] Team Providers + +------+ + | Care Montessori Program Director Name | Role | Phone [...] | | | | | | [place] [address] | | | | | | [phone] | | | +--------+ + + + [...] | | | | | [place] [address] | | | | | | [phone] | | | | | | | | | | | | Julia Fisher, | | | | | | PT | | +--------+ + + + + | 02/18/ | Appointment | Rehabilitation | Erika Ernst, | | | 2019 | | | DO [address] | | | | | | [place] [address] | | | | | | [phone] | | | | | | | | | | | | [facility] | | +--------+ + + + + | 02/25/ | Office | Primary Care | Erika Ernst, | | | 2019 | Visit | | DO [address] | | | | | | [place] [address] | | | | | | [phone] | | | | | | | [...] | | | | | [place] [address] | | | | | | [phone] | | | | | | | | +--------+ + + + + | 02/27/ | Appointment | Radiology | Dhara, | | | 2019 | | | [address] | | | | | | 4TH [facility], | | | | | | [place] [address] | | | | | | [phone] | | | | | | | | +--------+ + + + + | 03/04/ | Appointment | Rehabilitation | [facility] | | | 2019 | | | | | +--------+ + + + + | 03/09/ | Office | Orthopedic Surgery | Jeffrey Gandhi, | | | 2019 | Visit | | [address] [facility] | | | | | | [place] [address] | | | | | | [phone] | | | | | | | [...] [place] | | | | | | [address] | | | | | | [phone] | | | | | | | [...] | | | | | [place] [address] | | | | | | [phone] | | | | | | | | | | | | Azul Yeboah, | | | | | | MD [address] | | | | | | [place] | | | | | | [place] [address] | | | | | | [phone] | | | | | | | [...] | | | | | | [place] [address] | | | | | | [phone] | | | | | | | | +--------+ + + + + documented as of this encounter Visit Diagnoses Not on filedocumented in this encounter"
--- OUTSIDE RECORDS SUMMARY | ~2020-02-18 | XMS | Encounter Summary ---
Demographics + + + | Address | [address] | | | [place] [address] | + + + | Home Phone [...] Providers + +------+ + | Care Shell Sorter Name | Role | Phone | + [...] Vaccines | | 2019 | | [facility] | DO [address] | | | | | MED[facility] [address] | [place] [address] | | | | | [address] [place], | [phone] | | | | | [place] [address] | | | | | | [phone] | | | +--------+ + + + [...] | | | | | [place] [address] | | | | | | [phone] | | | | | | | | | | | | Julia Fisher, | | | | | | PT | | +--------+ + + + + | 02/18/ | Appointment | Rehabilitation | Erika Ernst, | | | 2019 | | | DO [address] | | | | | | [place] [address] | | | | | | [phone] | | | | | | | | | | | | [facility] | | +--------+ + + + + | 02/25/ | Office | Primary Care | Erika Ernst, | | | 2019 | Visit | | DO [address] | | | | | | [place] [address] | | | | | | [phone] | | | | | | | [...] | | | | | [place] [address] | | | | | | [phone] | | | | | | | | +--------+ + + + + | 02/27/ | Appointment | Radiology | Dhara, | | | 2019 | | | [address] | | | | | | [address] [place], | | | | | | [place] [address] | | | | | | [phone] | | | | | | | [...] | | | | | [place] [address] | | | | | | [phone] | | | | | | | [...] [place] | | | | | | [address] | | | | | | [phone] | | | | | | | [...] | | | | | [place] [address] | | | | | | [phone] | | | | | | | | | | | | Azul Yeboah, | | | | | | MD [address] | | | | | | [place] | | | | | | [place] [address] | | | | | | [phone] | | | | | | | [...] | | | | | | [place] [address] | | | | | | [phone] | | | | | | | | +--------+ + + + + documented as of this encounter Visit Diagnoses Not on filedocumented in this encounter"
--- OUTSIDE RECORDS SUMMARY | ~2020-02-18 | XMS | Encounter Summary ---
Demographics + + + | Address | [address] | | | [place] [address] | + + + | Home Phone [...] Team Providers + +------+ + | Care Blasting Helper Name | Role | Phone | [...] | [address] | | | | | [address] | | | | | | [phone] | | | +--------+ + + + [...] | | | | | [place] [address] | | | | | | [phone] | | | | | | | | | | | | Julia Fisher, | | | | | | PT | | +--------+ + + + + | 02/18/ | Appointment | Rehabilitation | Erika Ernst, | | | 2019 | | | DO [address] | | | | | | [place] [address] | | | | | | [phone] | | | | | | | | | | | | [facility] | | +--------+ + + + + | 02/25/ | Office | Primary Care | Erika Ernst, | | | 2019 | Visit | | DO [address] | | | | | | [place] [address] | | | | | | [phone] | | | | | | | [...] | | | | | [place] [address] | | | | | | [phone] | | | | | | | | +--------+ + + + + | 02/27/ | Appointment | Radiology | Dhara, | | | 2019 | | | [address] | | | | | | 4TH [facility], | | | | | | [place] [address] | | | | | | [phone] | | | | | | | [...] [place] | | | | | | [place] [address] | | | | | | [phone] | | | | | | | [...] [place] | | | | | | [address] | | | | | | [phone] | | | | | | | [...] | | | | | [place] [address] | | | | | | [phone] | | | | | | | | | | | | Azul Yeboah, | | | | | | [address] | | | | | | [place] | | | | | | [place] [address] | | | | | | [phone] | | | | | | | [...] | | | | | | [place] [address] | | | | | | [phone] | | | | | | | | +--------+ + + + + documented as of this encounter Visit Diagnoses Not on filedocumented in this encounter"
--- OUTSIDE RECORDS SUMMARY | ~2020-02-18 | XMS | Encounter Summary ---
Demographics + + + | Address | [address] | | | [place] [address] | + + + | Home Phone [...] Providers + +------+ + | Care Oil Lease Broker Name | Role | Phone | + [...] | +--------+ + + + + | 12/27/ | Telephone | [place] [facility] | Erika Ernst, | Lab Results | | 2019 | | [facility] | DO [address] | | | | | [facility]ICAL [facility] [address] | [place] [address] | | | | | [address] [place], | [phone] | | | | | [place] [address] | | | | | | [phone] | | | +--------+ + + + [...] | 2019 | | | DO [address] | | | | | | [place] [address] | | | | | | [phone] | | | | | | | | | | | | Julia Fisher, | | | | | | PT | | +--------+ + + + + | 02/18/ | Appointment | Rehabilitation | Erika Ernst, | | | 2019 | | | DO [address] | | | | | | [place] [address] | | | | | | [phone] | | | | | | | | | | | | [facility] | | +--------+ + + + + | 02/25/ | Office | Primary Care | Erika Ernst, | | | 2019 | Visit | | DO [address] | | | | | | [place] [address] | | | | | | [phone] | | | | | | | [...] | | | | | [place] [address] | | | | | | [phone] | | | | | | | | +--------+ + + + + | 02/27/ | Appointment | Radiology | Dhara, | | | 2019 | | | [address] | | | | | | [address] [facility] [place], | | | | | | [place] [address] | | | | | | [phone] | | | | | | | [...] | | | | | [place] [address] | | | | | | [phone] | | | | | | | [...] [place] | | | | | | [address] | | | | | | [phone] | | | | | | | [...] | | | | | [place] [address] | | | | | | [phone] | | | | | | | | | | | | Azul Yeboah, | | | | | | MD [address] | | | | | | [place] | | | | | | [place] [address] | | | | | | [phone] | | | | | | | [...] | | | | | | [place] [address] | | | | | | [phone] | | | | | | | | +--------+ + + + + documented as of this encounter Visit Diagnoses Not on filedocumented in this encounter"
--- OUTSIDE RECORDS SUMMARY | ~2020-02-18 | XMS | Encounter Summary ---
Demographics + + + | Address | [address] | | | [place] [address] | + + + | Home Phone [...] Team Providers + +------+ + | Care Associate Director Of Development Name | Role | Phone | + +------+ + | Erika Ernst DO | PCP | | + +------+ + Reason for Visit +--------+ + | Reason | Comments | +--------+ + | Other | Records Question | +--------+ + Encounter Details +--------+ + + + + | Date | Type | Department | Care Team | Description | +--------+ + + + + | 12/23/ | Telephone | [place] [facility] | Erika Ernst, | Other (Records | | 2020 | | [facility] | DO [address] | Question) | | | | MEDICAL CL[facility] [address] | [place] [address] | | | | | [address] [place], | [phone] | | | | | [place] [address] | | | | | | [phone] | | | +--------+ + + + [...] | | | | | [place] [address] | | | | | | [phone] | | | | | | | | | | | | Julia Fisher, | | | | | | PT | | +--------+ + + + + | 02/18/ | Appointment | Rehabilitation | Erika Ernst, | | | 2019 | | | DO [address] | | | | | | [place] [address] | | | | | | [phone] | | | | | | | | | | | | [facility] | | +--------+ + + + + | 02/25/ | Office | Primary Care | Erika Ernst, | | | 2019 | Visit | | DO [address] | | | | | | [place] [address] | | | | | | [phone] | | | | | | | [...] | | | | | [place] [address] | | | | | | [phone] | | | | | | | | +--------+ + + + + | 02/27/ | Appointment | Radiology | Dhara, | | | 2019 | | | [address] | | | | | | 4TH [facility], | | | | | | [place] [address] | | | | | | [phone] | | | | | | | [...] [place] | | | | | | [place] [address] | | | | | | [phone] | | | | | | | [...] [place] | | | | | | [address] | | | | | | [phone] | | | | | | | [...] | | | | | [place] [address] | | | | | | [phone] | | | | | | | | | | | | Azul Yeboah, | | | | | | MD [address] | | | | | | [place] | | | | | | [place] [address] | | | | | | [phone] | | | | | | | [...] | | | | | | [place] [address] | | | | | | [phone] | | | | | | | | +--------+ + + + + documented as of this encounter Visit Diagnoses Not on filedocumented in this encounter"
--- OUTSIDE RECORDS SUMMARY | ~2020-02-18 | XMS | Encounter Summary ---
Demographics + + + | Address | [address] | | | [place] [address] | + + + | Home Phone [...] Team Providers + +------+ + | Care Screedman Name | Role | Phone | + +------+ + PCP | Unavailable | + +------+ + Encounter Details +--------+ + + + + | Date | Type | Department | Care Team | Description | +--------+ + + + + | 10/26/ | [facility] | Spenser Roberts NP | | | 2015 | Encounter | [facility] | [address], | | | | | MEDICAL CL[facility] [address] | [place] [address] | | | | | [address] [facility], | [phone] | | | | | [place] [address] | | | | | | [phone] | | | +--------+ + + + [...] | | | | | [place] [address] | | | | | | [phone] | | | | | | | | | | | | Julia Fisher, | | | | | | PT | | +--------+ + + + + | 02/18/ | Appointment | Rehabilitation | Erika Ernst, | | | 2019 | | | DO [address] | | | | | | [place] [address] | | | | | | [phone] | | | | | | | | | | | | [facility] | | +--------+ + + + + | 02/25/ | Office | Primary Care | Erika Ernst, | | | 2019 | Visit | | DO [address] | | | | | | [place] [address] | | | | | | [phone] | | | | | | | [...] | | | | | | [place] [address] | | | | | | [phone] | | | | | | | | +--------+ + + + + | 02/27/ | Appointment | Radiology | Dhara, | | | 2019 | | | [address] | | | | | | [address] [facility], | | | | | | [place] [address] | | | | | | [phone] | | | | | | | | +--------+ + + + + | 03/04/ | Appointment | Rehabilitation | [facility] | | | 2019 | | | | | +--------+ + + + + | 03/09/ | Office | Orthopedic Surgery | Jeffrey Gandhi, | | 2019 | Visit | | [address] | | | | | | [place] [address] | | | | | | [phone] | | | | | | | [...] [place] | | | | | | [address] | | | | | | [phone] | | | | | | | [...] [address] | | | | | | [phone] | | | | | | | | | | | | Azul Yeboah, | | | | | | MD [address] | | | | | | [place] | | | | | | [place] [address] | | | | | | [phone] | | | | | | | [...] | | | | | | [place] [address] | | | | | | [phone] | | | | | | | | +--------+ + + + + documented as of this encounter Visit Diagnoses Not on filedocumented in this encounter"
--- OUTSIDE RECORDS SUMMARY | ~2020-02-18 | XMS | Encounter Summary ---
Demographics + + + | Address | [address] | | | [place] [address] | + + + | Home Phone [...] Team Providers + +------+ + | Care Instructor Technical Training Name | Role | Phone | + +------+ + | Erika Ernst DO | PCP | | + +------+ + Reason for Visit +--------+ + | Reason | Comments | +--------+ + | Other | Pt request call back re: fever and other symptoms | +--------+ + | Other | FYI | +--------+ + Encounter Details +--------+ + + + + | Date | Type | Department | Care Team | Description | +--------+ + + + + | 02/12/ | Telephone | [place] [facility] | Erika Ernst, | Other (Pt request | | 2020 | | [facility] | [facility] [address] [facility] | call back re: fever | | | | MEDICAL CL[facility] [address] | [facility] [place] [address] | and other symptoms); | | | | PSYCH[facility]AT[facility]IC, | [phone] | Other (FYI) | | | | [place] [address] | | | | | | [phone] | | | +--------+ + + + [...] | | | | | [place] [address] | | | | | | [phone] | | | | | | | | | | | | Julia Fisher, | | | | | | PT | | +--------+ + + + + | 02/18/ | Appointment | Rehabilitation | Erika Ernst, | | | 2019 | | | DO [address] | | | | | | [place] [address] | | | | | | [phone] | | | | | | | | | | | | [facility] | | +--------+ + + + + | 02/25/ | Office | Primary Care | Erika Ernst, | | | 2019 | Visit | | DO [address] | | | | | | [place] [address] | | | | | | [phone] | | | | | | | [...] | | | | | [place] [address] | | | | | | [phone] | | | | | | | | +--------+ + + + + | 02/27/ | Appointment | Radiology | Dhara, | | | 2019 | | | [address] | | | | | | [address] [place], | | | | | | [place] [address] | | | | | | [phone] | | | | | | | | +--------+ + + + + | 03/04/ | Appointment | Rehabilitation | [facility] OT | | 2019 | | | | | +--------+ + + + + | 03/09/ | Office | Orthopedic Surgery | Jeffrey Gandhi, | | 2019 | Visit | | [address] | | | | | | [place] [address] | | | | | | [phone] | | | | | | | [...] [place] | | | | | | [address] | | | | | | [phone] | | | | | | | [...] | | | | | [place] [address] | | | | | | [phone] | | | | | | | | | | | | Azul Yeboah, | | | | | | MD [address] | | | | | | [place] | | | | | | [place] [address] | | | | | | [phone] | | | | | | | [...] | | | | | | [place] [address] | | | | | | [phone] | | | | | | | | +--------+ + + + + documented as of this encounter Visit Diagnoses Not on filedocumented in this encounter"
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
--- OUTSIDE RECORDS SUMMARY | ~2020-02-18 | XMS | Encounter Summary ---
Demographics + + + | Address | [address] | | | [place] [address] | + + + | Home Phone [...] Team Providers + +------+ + | Care Master Rigger Name | Role | Phone | + [...] | | | [place] | [id number] | | | | | [address] | | | | | | [phone] | | | +--------+ + + + [...] | | | | | [place], [place] [address] | | | | | | [phone] | | | | | | | | | | | | Julia Fisher, | | | | | | PT | | +--------+ + + + + | 02/18/ | Appointment | Rehabilitation | Erika Ernst, | | | 2019 | | | DO [address] [place] | | | | | | [place] [address] | | | | | | [phone] | | | | | | | | | | | | Genesis Ayon OT | | +--------+ + + + + | 02/25/ | Office | Primary Care | Erika Ernst, | | | 2019 | Visit | | DO [address] [place] | | | | | | [place] [address] | | | | | | [phone] | | | | | | | [...] | | | | | [place] [address] | | | | | | [phone] | | | | | | | | +--------+ + + + + | 02/27/ | Appointment | Radiology | Dhara, | | | 2019 | | | DWAINE Ross [address] | | | | | | [address] [facility], | | | | | | [place] [address] | | | | | | [phone] | | | | | | | | +--------+ + + + + | 03/04/ | Appointment | Rehabilitation | Genesis Ayon OT | | | 2019 | | | | | +--------+ + + + + | 03/09/ | Office | Orthopedic Surgery | Jeffrey Gandhi, | | | 2019 | Visit | | MD [address] [facility] | | | | | | [place] [address] | | | | | | [phone] | | | | | | | [...] [place] | | | | | | [address] | | | | | | [phone] | | | | | | | [...] | | | | | [place] [address] | | | | | | [phone] | | | | | | | | | | | | Azul Yeboah, | | | | | | MD [address] | | | | | | [place] | | | | | | [place] [address] | | | | | | [phone] | | | | | | | [...] | | | | | | [place] [address] | | | | | | [phone] | | | | | | | | +--------+ + + + + documented as of this encounter Visit Diagnoses Not on filedocumented in this encounter"
--- OUTSIDE RECORDS SUMMARY | ~2020-02-18 | XMS | Encounter Summary ---
Demographics + + + | Address | [address] | | | [place] [address] | + + + | Home Phone [...] Providers + +------+ + | Care Gas Main Fitter Helper Name | Role | Phone | [...] + | 08/13/ | Telephone | [place] [facility] | Erika Ernst, | Medication Refill | | 2019 | | [facility] | [address] | | | | | [facility] [address] | [place] [place] [address] | | | | | [address] [place], | [phone] | | | | | [place] [address] | | | | | | [phone] | | | +--------+ + + + [...] | | | | | [place] [address] | | | | | | [phone] | | | | | | | | | | | | Julia Fisher, | | | | | | PT | | +--------+ + + + + | 02/18/ | Appointment | Rehabilitation | Erika Ernst, | | | 2019 | | | DO [address] [place] | | | | | | [place] [address] | | | | | | [phone] | | | | | | | | | | | | Genesis Ayon OT | | +--------+ + + + + | 02/25/ | Office | Primary Care | Erika Ernst, | | | 2019 | Visit | | DO [address] [place] | | | | | | [place] [address] | | | | | | [phone] | | | | | | | [...] | | | | | [place] [address] | | | | | | [phone] | | | | | | | | +--------+ + + + + | 02/27/ | Appointment | Radiology | Dhara, | | | 2019 | | | DWAINE Ross [address] | | | | | | [address] [place], | | | | | | [place] [address] | | | | | | [phone] | | | | | | | [...] [place] | | | | | | [place] [address] | | | | | | [phone] | | | | | | | [...] [place] | | | | | | [address] | | | | | | [phone] | | | | | | | [...] | | | | | [place] [address] | | | | | | [phone] | | | | | | | | | | | | Azul Yeboah, | | | | | | MD [address] | | | | | | [place] | | | | | | [place] [address] | | | | | | [phone] | | | | | | | [...] | | | | | | [place] [address] | | | | | | [phone] | | | | | | | | +--------+ + + + + documented as of this encounter Visit Diagnoses Not on filedocumented in this encounter"
--- OUTSIDE RECORDS SUMMARY | ~2020-02-18 | XMS | Encounter Summary ---
Demographics + + + | Address | [address] | | | [place] [address] | + + + | Home Phone [...] + +------+ + | Care Telephone Order Supervisor Name | Role | Phone | [...] + + + | Closed | | Respiratory | Diagnoses | [facility] | [facility] | | | | Therapy | | Regional | Respiratory | | | | | Palpitations | Primary Care | Therapy [address] | | | | | Procedures | [address] | [address] [place] | | | | | HOLTER | [place], | [place] | | | | | MONITOR - [address] | [place] | [address] | | | | | WEEK | [address] | Phone: | | | | | | Phone: | [phone] | | | | | | [phone] | Fax: | | | | | | Fax: | [phone] | | | | | | [phone] | | +--------+--------+ + + + + Encounter Details +--------+ + + + + | Date | Type | Department | Care Team | Description | +--------+ + + + + | 02/04/ | Hospital | [place] [facility] | Erika Ernst, | Heart palpitations | | 2018 | Encounter | [facility] | DO [address] | | | | | MEDICINE [address] | [place] [address] | | | | | DR [place], [place] | [phone] | | | | | [address] | | | | | | [phone] | | | +--------+ + + + [...] | 11/26/19 | | | (VITAMIN D3) 70750 | mouth Once a week | tablet [...] documented as of this encounter Progress Notes Demetris Perrin RRT - 02/04/2019 12:20 PM PDTSetup Zio patch heart monitor for 7 days. Neyda rich will mail recorder to [facility] when done to be scanned.Electronically susana d by Demetris Perrin RRT at 02/04/2019 12:20 PM PDTdocumented in this encounter Plan of Treatment +--------+ + + + + | Date | Type | Specialty | Care Team | Description | +--------+ + + + + | 02/18/ | Appointment | Rehabilitation | Erika Ernst, | | | 2019 | | | DO [address] [place] | | | | | | [place] [address] | | | | | | [phone] | | | | | | | | | | | | Julia Fisher, | | | | | | PT | | +--------+ + + + + | 02/18/ | Appointment | Rehabilitation | Erika Ernst, | | | 2019 | | | DO [address] [place] | | | | | | [place] [address] | | | | | | [phone] | | | | | | | | | | | | Genesis Ayon OT | | +--------+ + + + + | 02/25/ | Office | Primary Care | Erika Ernst, | | | 2019 | Visit | | DO [address] [place] | | | | | | [place] [address] | | | | | | [phone] | | | | | | | [...] | | | | | | [place] [address] | | | | | | [phone] | | | | | | | | +--------+ + + + + | 02/27/ | Appointment | Radiology | Dhara, | | | 2019 | | | DWAINE Ross [address] | | [address] [place], | | | | | | [place] [address] | | | | | | [phone] | | | | | | | | +--------+ + + + + | 03/04/ | Appointment | Rehabilitation | Genesis Ayon OT | | | 2019 | | | | | +--------+ + + + + | 03/09/ | Office | Orthopedic Surgery | Jeffrey Gandhi, | | 2019 | Visit | | [place] [address] | | | | | | [place] [address] | | | | | | [phone] | | | | | | | | +--------+ + + + + | 03/11/ | Appointment | Rehabilitation | Geneiss Ayon [...] [place] | | | | | | [address] | | | | | | [phone] | | | | | | | [...] | | | | | [place] [address] | | | | | | [phone] | | | | | | | | | | | | Azul Yeboah, | | | | | | MD [address] | | | | | | [place] | | | | | | [place] [address] | | | | | | [phone] | | | | | | | [...] | | | | | | [place] [address] | | | | | | [phone] | | | | | | | | +--------+ + + + + documented as of this encounter Procedures + +--------+ + + + | Procedure Name | Priori | Date/Time | Associated Diagnosis | Comments | | | ty | | | | + +--------+ + + + | HOLTER MONITOR - 1 | Routin | 02/15/2019 | Heart palpitations | Results for this | | WEEK | e | 9:14 AM | | procedure are in the | | | | PDT | | results section. | + +--------+ + + + documented in this encounter Results Holter monitor - 1 week (02/15/2019 9:14 AM PDT) + + + | Narrative | Performed At | + + + | | | + + + + +---------+ + + | Performing | Address | City/State/Zipcode | Phone Number | | Organization | | | | + +---------+ + + | [facility] | | | | + +---------+ + + documented in this encounter Visit Diagnoses + + | Diagnosis | + + | Heart palpitations Palpitations | + + documented in this encounter"
--- OUTSIDE RECORDS SUMMARY | ~2020-02-18 | XMS | Encounter Summary ---
Demographics + + + | Address | [address] | | | [place] [address] | + + + | Home Phone [...] | [facility] | | | and [...] Team Providers + +------+ + | Care Shredded Filler Cigar Maker Machine Name | Role | Phone | + +------+ + PCP | Unavailable | + +------+ + Encounter Details +--------+ + + + + | Date | Type | Department | Care Team | Description | +--------+ + + + + | 12/30/ | [facility] | Cody Go | | | 2016 | Encounter | [facility] | [address] [place] | | | | | [address] [place] | [place] | | | | | [place] | [address] | | | | | [address] | [phone] | | | | | [phone] | | | +--------+ + + + [...] | | | | | [place] [address] | | | | | | [phone] | | | | | | | | | | | | Julia Fisher, | | | | | | PT | | +--------+ + + + + | 02/18/ | Appointment | Rehabilitation | Erika Ernst, | | | 2019 | | | DO [address] [place] | | | | | | [place] [address] | | | | | | [phone] | | | | | | | | | | | | Genesis Ayon, SUSAN | | +--------+ + + + + | 02/25/ | Office | Primary Care | Erika Ernst, | | | 2019 | Visit | | DO [address] [place] [address] | | | | | | [place] [address] | | | | | | [phone] | | | | | | | [...] | | | | | [place] [address] | | | | | | [phone] | | | | | | | | +--------+ + + + + | 02/27/ | Appointment | Radiology | Dhara, | | | 2019 | | | DWAINE Ross [address] [place], | | | | | | [place] [address] | | | | | | [phone] | | | | | | | [...] | | | | | [place] [address] | | | | | | [phone] | | | | | | | [...] [place] | | | | | | [address] | | | | | | [phone] | | | | | | | [...] | | | | | [place] [address] | | | | | | [phone] | | | | | | | | | | | | Azul Yeboah, | | | | | | MD [address] | | | | | | [place] | | | | | | [place] [address] | | | | | | [phone] | | | | | | | [...] | | | | | | [place] [address] | | | | | | [phone] | | | | | | | [...] cardiopulmonary process. JOB #: | | | [id number] Digitally Released by: Anjelica Bedolla Read By: ANJELICA | | | Oliver BEDOLLA MD Date: 12/30/2016 09:59 | | + + + + + | Procedure Note | + + | Mitchel, Rad Results In - 10/12/2017 12:00 PM PST [...] | | | | | JOB #: [id number] | | Digitally Released by: Anjelica Bedolla | | | | | | Read By: ANJELICA BEDOLLA MD | | Date: 12/30/2016 09:59 | | | + + documented in this encounter Visit Diagnoses Not on filedocumented in this encounter"
--- OUTSIDE RECORDS SUMMARY | ~2020-02-18 | XMS | Encounter Summary ---
Demographics + + + | Address | [address] | | | [place] [address] | + + + | Home Phone [...] Providers + +------+ + | Care Wire Wrapper Machine Operator Name | Role | Phone | + +------+ + | Erika Ernst DO | PCP | | + +------+ + Encounter Details +--------+---------+ + + + | Date | Type | Department | Care Team | Description | +--------+---------+ + + + | 01/12/ | Office | [place] [facility] | Emily Avery | Menorrhagia with | | 2020 | Visit | [facility] | DO [address] | irregular cycle | | | | CLINIC [address] | [address] | (Primary Dx); | | | | DR MYRA [address]ST[address], | [place], [place] | Hypothyroidism, | | | | [place] [address] | [address] | unspecified type; | | | | [phone] | [phone] | Dysmenorrhea | | | | | | | [...] documented as of this encounter Progress Notes Emily Avery, - 01/13/2020 3:30 PM PDTFormatting of this note might be diffe rent from the original. Participants: Patient Participant verbally confirmed the choice to initiate care by, and consents to receive care by Telephone. Subjective: Patient ID: Andrea Suh is a 29 y.o. female. CC: menorrhagia with irregular bleeding, dysmenorrhea HPI: Patient states that her cycles have been heavier. She has lost 60 pounds per patient in th e past few months. Not intentional. Life has been very stressful. Mother has since last time I saw her. Her sister and the patient have been having to take care of her mother's house so has been much more active. She thinks in the last few months she probably has lost 30 pounds. Patient states cycles can be 2-3 weeks apart. She states they last 4-5 days. She states t hey are much heavier. She will have to change a pad every 2-3 hours. Usually the blood sta rts out darker then lighten up and then gets darker toward the end. She states her pain has been getting worse to the point she has taken tramadol sometimes. She thinks it helps some but she is waiting to hear from Dr. Ernst about possibly her body being at risk of taking tramadol. She states that the doctor that does her anxiety medication did a swab test to se e what DNA showed she was either sensitive to. We have previously discussed options to help with the bleeding and pain. She tried Depo bu t did not do well on it. Her mother recently of a stroke and the patient does not want to take estrogen. We discussed the option of progesterone only pills, cyclic progesterone, Mirena IUD, Lupron or Orilissa. Assessment & Plan 1. Menorrhagia with irregular cycle Patient has lost quite a bit of weight since last check. Will recheck again. She was given options as above for treatment of her menorrhagia and dysmenorrhea. She admits that the lo ss of her mother and taking care of her house has been her focus. She will let me know if s he wants to do one of these options. - TSH; Future - T4, Free; Future 2. Hypothyroidism, unspecified type - TSH; Future - T4, Free; Future 3. Dysmenorrhea See above Clinical discussion length: 11-20 min ([id number]) Patient has not been seen in office within the past 7 days, and outcome of this call is not to recommend soonest available office visit. Follow up Instructions: As needed or for routine doughnut dough mixer care. documented in this encounter Plan of Treatment +--------+ + + + + | Date | Type | Specialty | Care Team | Description | +--------+ + + + + | 02/18/ | Appointment | Rehabilitation | Erika Ernst, | | | 2019 | | | DO [address] [place] | | | | | | [place] [address] | | | | | | [phone] | | | | | | | | | | | | Julia Fisher, | | | | | | PT | | +--------+ + + + + | 02/18/ | Appointment | Rehabilitation | Erika Ernst, | | | 2019 | | | DO [address] [place] | | | | | | [place] [address] | | | | | | [phone] | | | | | | | | | | | | Genesis Ayon, SUSAN | | +--------+ + + + + | 02/25/ | Office | Primary Care | Erika Ernst, | | | 2019 | Visit | | DO [address] [place] | | | | | | [place] [address] | | | | | | [phone] | | | | | | | [...] | | | | | [place] [address] | | | | | | [phone] | | | | | | | | +--------+ + + + + | 02/27/ | Appointment | Radiology | Dhara, | | | 2019 | | | DWAINE Ross [address] | | | | | | [address] [place], | | | | | | [place] [address] | | | | | | [phone] | | | | | | | | +--------+ + + + + | 03/04/ | Appointment | Rehabilitation | Genesis Ayon OT | | | 2019 | | | | | +--------+ + + + + | 03/09/ | Office | Orthopedic Surgery | Jeffrey Gandhi, | | | 2019 | Visit | | [address] [facility] | | | | | | [place] [address] | | | | | | [phone] | | | | | | | [...] [place] | | | | | | [address] | | | | | | [phone] | | | | | | | [...] | | | | | [place] [address] | | | | | | [phone] | | | | | | | | | | | | Azul Yeboah, | | | | | | MD [address] | | | | | | [place] | | | | | | [place] [address] | | | | | | [phone] | | | | | | | [...] | | | | | | [place] [address] | | | | | | [phone] | | | | | | | | +--------+ + + + + documented as of this encounter Results T4, Free (01/13/2020 4:03 PM PDT) + +-------+ + + + | Component | Value | Ref Range | Performed | Pathologist | | | | | At | Signature | + +-------+ + + + | FT4 | 1.1 | 0.8 - 1.5 ng/dL | [place] | | | | | | [facility] | | | | | [facility] [...] + + | [place] [facility] | [address] | [place], [place] | [phone] | | [facility] | | [address] | | + + + + + TSH (01/13/2020 4:03 PM PDT) + +-------+ + + + | Component | Value | Ref Range | Performed | Pathologist | | | | | At | Signature | + +-------+ + + + | TSH | 1.80 | 0.36 - 3.74 | [place] | [...] + + | [place] [facility] | [address] | [place] | [phone] | | [facility] | | [address] | | + + + + + documented in this encounter Visit Diagnoses + + | Diagnosis | + + | Menorrhagia with irregular cycle - Primary Excessive or frequent menstruation | + + | Hypothyroidism, unspecified type | + + | Dysmenorrhea | + + documented in this encounter"
--- OUTSIDE RECORDS SUMMARY | ~2020-02-18 | XMS | Encounter Summary ---
Demographics + + + | Address | [address] | | | [place] [address] | + + + | Home Phone [...] Team Providers + +------+ + | Care Tire Care Manager Name | Role | Phone | [...] | | | | severe | [place] [address] | [place] | | | | | obesity due | Phone: | [phone] | | | | | to excess | [phone] | Phone: | | | | | calories | Fax: | [phone] | | | | | without | [phone] | Fax: | | | | | serious | | [phone] | | | | | comorbidity | [...] | | | | | | | GA MED NUTR | | | | | | | THER, 1ST, | | | | | | | INDIV, EA 15 | | | | | | | MIN [facility] MED | | | | | | [...] | SERVICES [address] | [place] [address] | Benign hypertension; | | | | [place] | [phone] | Morbid obesity | | | | [address] | | ([facility]); Adult body | | | | [phone] | Janel Webster, | mass index 50.0-59.9 | | | | | RD | ([facility]) | +--------+ + + + + [...] | 02/29/20 | | | (VITAMIN D3) 42324 | mouth Once a week | tablet [...] documented as of this encounter Progress Notes Darin Janel Kent, RD - 03/14/2019 8:31 AM PDTAssessment: Dx:obesity, [...] | | 2019 | | | DO [address] [place] [address] | | | | | | [place] [address] | | | | | | [phone] | | | | | | | | | | | | Julia Fisher, | | | | | | PT | | +--------+ + + + + | 02/18/ | Appointment | Rehabilitation | Erika Ernst, | | | 2019 | | | DO [address] [place] | | | | | | [place] [address] | | | | | | [phone] | | | | | | | | | | | | Genesis Ayon, SUSAN | | +--------+ + + + + | 02/25/ | Office | Primary Care | Erika Ernst, | | | 2019 | Visit | | DO [address] [place] | | | | | | [place] [address] | | | | | | [phone] | | | | | | | [...] | | | | | [place] [address] | | | | | | [phone] | | | | | | | | +--------+ + + + + | 02/27/ | Appointment | Radiology | Dhara, | | | 2019 | | | DWAINE Ross [address] | | | | | | [address] [place], | | | | | | [place] [address] | | | | | | [phone] | | | | | | | [...] | | | | | [place] [address] | | | | | | [phone] | | | | | | | [...] [place] | | | | | | [address] | | | | | | [phone] | | | | | | | [...] | | | | | [place] [address] | | | | | | [phone] | | | | | | | | | | | | Azul Yeboah, | | | | | | MD [address] | | | | | | [place] | | | | | | [place] [address] | | | | | | [phone] | | | | | | | [...] | | | | | | [place] [address] | | | | | | [phone] | | | | | | | [...]
--- OUTSIDE RECORDS SUMMARY | ~2020-02-18 | XMS | Encounter Summary ---
Demographics + + + | Address | [address] | | | [place] [address] | + + + | Home Phone [...] Team Providers + +------+ + | Care Saddle Stitcher Name | Role | Phone | + +------+ + | Erika Ernst DO | PCP | | + +------+ + Reason for Visit +--------+ + | Reason | Comments | +--------+ + | Other | FYI | +--------+ + Encounter Details +--------+ + + + + | Date | Type | Department | Care Team | Description | +--------+ + + + + | 01/23/ | Telephone | [place] [facility] | KleverErika epps, | Other (FYI) | | 2020 | | [facility] | DO [address] | | | | | [facility] | [place] [address] | | | | [address] [place], | [phone] | | | | | [place] [address] | | | | | | [phone] | | | +--------+ + + + [...] | | | | | [place] [address] | | | | | | [phone] | | | | | | | | | | | | Julia Fisher, | | | | | | PT | | +--------+ + + + + | 02/18/ | Appointment | Rehabilitation | Erika Ernst, | | | 2019 | | | DO [address] [place] | | | | | | [place] [address] | | | | | | [phone] | | | | | | | | | | | | Genesis Ayon OT | | +--------+ + + + + | 02/25/ | Office | Primary Care | Erika Ernst, | | | 2019 | Visit | | DO [address] [place] | | | | | | [place] [address] | | | | | | [phone] | | | | | | | [...] | | | | | [place] [address] | | | | | | [phone] | | | | | | | | +--------+ + + + + | 02/27/ | Appointment | Radiology | Dhara, | | | 2019 | | | DWAINE Ross [address] | | | | | | [address] [facility] [place], | | | | | | [place] [address] | | | | | | [phone] | | | | | | | | +--------+ + + + + | 03/04/ | Appointment | Rehabilitation | Genesis Ayon OT | | | 2019 | | | | | +--------+ + + + + | 03/09/ | Office | Orthopedic Surgery | Jeffrey Gandhi, | | | 2019 | Visit | | [address] | | | | | | [place] [address] | | | | | | [phone] | | | | | | | [...] [place] | | | | | | [address] | | | | | | [phone] | | | | | | | [...] | | | | | [place] [address] | | | | | | [phone] | | | | | | | | | | | | Azul Yeboah, | | | | | | [address] | | | | | | [place] | | | | | | [place] [address] | | | | | | [phone] | | | | | | | [...] | | | | | | [place] [address] | | | | | | [phone] | | | | | | | | +--------+ + + + + documented as of this encounter Visit Diagnoses Not on filedocumented in this encounter"
--- OUTSIDE RECORDS SUMMARY | ~2020-02-18 | XMS | Encounter Summary ---
Demographics + + + | Address | [address] | | | [place] [address] | + + + | Home Phone [...] Team Providers + +------+ + | Care Store Merchandiser Name | Role | Phone | + [...] | | | | s (de | [place], [place] | [place] [address] | | | | | quervain) | [address] | Phone: | | | | | Pain in | Phone: | [phone] | | | | | right wrist | [phone] | Fax: | | | | | Procedures | Fax: | [phone] | | | | | OT TREAT | [phone] | | +--------+--------+ + + + + Encounter Details +--------+ + + + + | Date | Type | Department | Care Team | Description | +--------+ + + + + | 12/31/ | Hospital | [facility] | Jeffrey Gandhi, | Radial styloid | | 2019 | Encounter | HOSPITAL THERAPY OT | [address] | tenosynovitis | | | | [address] [place] | [place] [address] | (Primary Dx); Right | | | | [place], [place] | [phone] | wrist pain | | | | [address] | | | | | | [phone] | Michela Azevedo, | | | | [...] | busPIRone (BUSPAR) | Take 15 mg BID | 60 | 5 | 12/19/19 | | | 15 mg tablet | [...] | 11/26/19 | | | (VITAMIN D3) 37347 | mouth Once a week | tablet [...] as of this encounter Progress Notes Michela Azevedo OT - 01/06/2019 6:37 PM PDTFormatting of this note might be different f rom the original. Patient Information Patient: Andrea Shu Ordering Physician: Jeffrey Gandhi MD Claim #: [id number] Date of Injury: No data was found Visits since the Date of Injury Date First Treated: 08/07/2018 Total number of visits: 34 Last Period's Progress Information Period (not required for initial evaluation) From: 11/30/18 To: 12/31/18 Number of visits for the above period: 6 Number of missed appointments for the above period: 0 Diagnosis Information Current Pain: Pain Assessment: Location: 02/08 R wrist today Diagnosis: Encounter Diagnoses Code Name Primary? 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 Dates: Previous exam: 11/29/18 Current exam: 12/21/18 ROM / Strength ROM at last Assessment R Forearm Pron: 80 R Forearm Sup: 65 R Wrist Flex: 70 R Wrist Ext : 60 R Wrist Radial Deviation: 24 R Wrist Ulnar Deviation: 21 Current ROM Range of Motion (measured in degrees): taken on 12/21/18 RUE AROM (degrees) R Forearm Pron: 80 R Forearm Sup: 63 R Wrist Flex: 73 R Wrist Ext : 60 R Wrist Radial Deviation: 18 R Wrist Ulnar Deviation: 21 Strength at last Assessment L Shorthand Teacher Trial 1: 51 L Shorthand Teacher Trial Average: 51 Right Hand Strength - Shorthand Teacher (lbs) R Shorthand Teacher Trial 1: 25 R Shorthand Teacher Trial Average: 25 Current Strength Strength: R Shorthand Teacher Trial 1: 24 R Shorthand Teacher Trial Average: 24 Left Hand Strength - Shorthand Teacher (lbs) L Shorthand Teacher Trial 1: 41 L Shorthand Teacher Trial Average: 41 Proposed Treatment Dates for Majoris Review Proposed treatments date: No data was found to No data was found Plan Treatment Plan/Interventions OT [id number] - Therapeutic Fgjhprcy36601 - Therapeutic Bitkrunltu00848 - Self Care/ Home Qbkkpnpjtj63527 - Manual Aifufyx08997 - Orthotic/Prosthetic Hemnboej18182 - Ultrasound9 7034 - Contrast Lszl97986 - Paraffin BathSplinting Moist heat, cold therapy Patient and/or family has indicated understanding of treatment needs and actively participa everardo in the creation of this plan for care Patient and/or family has indicated understanding of treatment needs and actively participa everardo in the creation of this plan for care. Plan Date of Onset: 07/20/2018 Start of Care Date: 08/07/2018 Requested # of Visits: 24 visits 2x/week for 12 weeks Certification From: 10/30/2018 Certification To: 01/22/2019 Treatment Plan/Interventions OT Ptogbcivzv09284 - Therapeutic Bqbpxnnk10947 - Therapeutic Onuvcbjbdl41864 - Self Care/Ho me Xrkrukfjlz96499 - Manual Bodxrnr02913 - Orthotic/Prosthetic Mzgasmtb94996 - Yzjevjiohb989 34 - Contrast Hlyf67989 - Paraffin BathSplinting Moist heat, cold therapy Patient and/or family has indicated understanding of treatment needs and actively particip ated in the creation of this plan for care. Brief narrative of progress to date, functional/objective limitation to be address in the p roposed treatment period, and objective or functional gain achieved to justify continuing th erapy (if not initial request) 12/21/2018 - PROGRESS REVIEW: Andrea has made very little measurable gains this month. In pa rt this may be because of an additional injury that occurred a few weeks ago. 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 She plans to seek a second opinion and at this time, her therap y will be placed on hold until further diagnostic work has been done. UPDATE: Since seeing Tavares Gandhi he recommends a second opinion from Dr. Noriega and would like Andrea to continue OT a t least until seeing Dr. Noriega. 11/29/2018 - PROGRESS REVIEW: Andrea has made significant functional gains during this report ing period and is compliant with wrist and tariff publishing agent strengthening exercises. She does still have deficits in tariff publishing agent strength and wrist stability as well as pain with daily activities. Her arya b description may be changing which would decrease the physical demands of her work, making it more appropriate for her current status. She continues to benefit from Occupational Thera py to maximize her tariff publishing agent strength and wrist stability following this injury and return her to prior level of function. 10/30/2018 - REASON FOR RE-CERTIFICATION: Andrea has received 12 Occupational Therapy treatme nts since 08/07/2018 following her right wrist surgery. She has regained full AROM of the rig ht wrist but continues to have right wrist, tariff publishing agent and pinch weakness and significant pain (3- [...] in 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, and tariff publishing agent and pinch weakness in the right hand [...] one (Likely / Unlikely / Guarded/ N/A): awaiting second opinion from Dr. Noriega Prognosis of returning to prior occupation in the proposed treatment period: Please choose one (Likely / Unlikely / Guarded/ N/A): awaiting second opinion from Dr. Noriega Comments, including work recommendations: Electronically signed by: Michela Azevedo OT, 01/06/2019 18:37 Michela Fuller OT - 01/01/2019 11:15 AM PDTFo rmatting of this note might be different from the original. [facility] THERAPY OT [address] [place] [address] Occupational Therapy Daily Treatment Note Date: 12/31/2018 Patient Information Patient Name: Andrea Suh Date of : 1990 Age: 28 y.o. History Encounter Diagnoses Code Name Primary? M65.4 Radial styloid tenosynovitis Yes M25.531 Right wrist pain Date of Onset: 07/20/2018 Referring Provider: Jeffrey Gandhi MD Objective Pain Assessment: Location: 02/08 R wrist today Today's Treatment Patient Name: Andrea Suh/: 1990/ Start Time: 1530 Stop time: 1602 Duration: 32 minutes Timed Treatment Codes: 30 minutes # of OT Visits: 24.16 Visit Summary: S: Pt reports she saw Dr. Gandhi who referred her to Dr. Noriega who she is see ing on 02/12/19. A: Pt has made minimal progress with OT intervention to date. Dr. Gandhi want s pt to continue with OT at least until seeing Dr. Noriega for second opinion. OT and pt agree d to space out txs to every other week until she sees Dr. Noriega. Shorthand Teacher strengthening protocol 5' 2x/day and isometrics are her HEP until next session. Next Visit: check response for tariff publishing agent strengthening protocol Patient/Caregiver Education Learner: Patient Readiness: Acceptance Method: Explanation, Demonstration, Handout Response: Verbalizes Understanding, Demonstrated Understanding Comment: HEP Interventions HEP : tariff publishing agent strengthening x 5' 2x/day with progressions and regressions as needed per tolera nce discussed, submaximal isometrics x 10 reps a day each direction OT INTERVENTION 2: TE 30 minutes: submaximal isometrics x 10, tariff publishing agent strengthening protocol 5 minutes with pink tputty, UE cycle x 10 minutes, rows 2 x 10 green tband for proximal stab ility, pull downs 2 x 10 with green tband for proximal stability OT MODALITY 2: NB: ice at end of session while POC was discussed Assessment 12/21/2018 - PROGRESS REVIEW: Andrea has made very little measurable gains this month. In pa rt this may be because of an additional injury that occurred a few weeks ago. 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 She plans to seek a second opinion and at this time, her therap y will be placed on hold until further diagnostic work has been done. 11/29/2018 - PROGRESS REVIEW: Andrea has made significant functional gains during this report ing period and is compliant with wrist and tariff publishing agent strengthening exercises. She does still have deficits in tariff publishing agent strength and wrist stability as well as pain with daily activities. Her arya b description may be changing which would decrease the physical demands of her work, making it more appropriate for her current status. She continues to benefit from Occupational Thera py to maximize her tariff publishing agent strength and wrist stability following this injury and return her to prior level of function. 10/30/2018 - REASON FOR RE-CERTIFICATION: Andrea has received 12 Occupational Therapy treatme nts since 08/07/2018 following her right wrist surgery. She has regained full AROM of the rig ht wrist but continues to have right wrist, tariff publishing agent and pinch weakness and significant pain (3- [...] in 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, and tariff publishing agent and pinch weakness in the right hand [...] ices. Electronically signed by: Michela Azevedo OT, 01/06/2019 18:37 Patient Name: Andrea Suh/: 1990/ documented in this encounter Plan of Treatment +--------+ + + + + | Date | Type | Specialty | Care Team | Description | +--------+ + + + + | 02/18/ | Appointment | Rehabilitation | Erika Ersnt, | | | 2019 | | | DO [address] [place] | | | | | | [place] [address] | | | | | | [phone] | | | | | | | | | | | | Julia Fisher, | | | | | | PT | | +--------+ + + + + | 02/18/ | Appointment | Rehabilitation | Erika Ernst, | | | 2019 | | | DO [address] [place] | | | | | | [place] [address] | | | | | | [phone] | | | | | | | | | | | | Genesis Ayon OT | | +--------+ + + + + | 02/25/ | Office | Primary Care | Erika Ernst, | | | 2019 | Visit | | DO [address] [place] | | | | | | [place] [address] | | | | | | [phone] | | | | | | | [...] | | | | | [place] [address] | | | | | | [phone] | | | | | | | | +--------+ + + + + | 02/27/ | Appointment | Radiology | Dhara, | | | 2019 | | | DWAINE Ross [address] [place], | | | | | | [place] [address] | | | | | | [phone] | | | | | | | [...] ST | | | | | | [place] [address] | | | | | | [phone] | | | | | | | [...] [place] | | | | | | [address] | | | | | | [phone] | | | | | | | [...] | | | | | [place] [address] | | | | | | [phone] | | | | | | | | | | | | Azul Yeboah, | | | | | | MD [address] | | | | | | [place] | | | | | | [place] [address] | | | | | | [phone] | | | | | | | [...] | | | | | | [place] [address] | | | | | | [phone] | | | | | | | | +--------+ + + + + documented as of this encounter Visit Diagnoses + + | Diagnosis | + + | Radial styloid tenosynovitis - Primary | + + | Right wrist pain Pain in joint, forearm | + + documented in this encounter"
--- OUTSIDE RECORDS SUMMARY | ~2020-02-18 | XMS | Encounter Summary ---
Demographics + + + | Address | [address] | | | [place] [address] | + + + | Home Phone [...] Team Providers + +------+ + | Care Coach Driver Name | Role | Phone | + +------+ + | Erika Ernst DO | PCP | | + +------+ + Reason for Visit +--------+ + | Reason | Comments | +--------+ + | Other | Right knee pain/ unable to bend leg x 1 day | +--------+ + Encounter Details +--------+---------+ + + + | Date | Type | Department | Care Team | Description | +--------+---------+ + + + | 10/28/ | Office | [facility] | Carlos Roberts, | Acute pain of right | | 2020 | Visit | 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 (Primary Dx) | | | | [facility] [address] | [place] [address] | | | | [address] [place], | [phone] | | | | | [place] [address] | | | | | | [phone] | | | +--------+---------+ + + + [...] +---------+ + + | Blood Pressure | 124/78 | 10/28/2019 10:18 AM | | | | | PST | | + +---------+ + + | Pulse | 71 | 10/28/2019 10:18 AM | | | | | PST | | + +---------+ + + | Temperature | - | - | | + +---------+ + + | Respiratory Rate | 16 | 10/28/2019 10:18 AM | | | | | PST | | + +---------+ + + | Oxygen Saturation | 98% | 10/28/2019 10:18 AM | | | | | PST [...] in this encounter Patient Instructions Patient Instructions Carlos Roberts NP - 10/28/2019 9:30 AM PSTRest. Drink plenty of li quids. Apply ice to the affected area for 20-30 minutes 4 times a day and as needed. Start ibuprofen 600 mg. Tablets, take 1 tablet by mouth every 6 hours as needed for discomfort. Go to the hospital radiology department for your xray. You will be contacted if your xray s hows anything concerning. Follow up with your primary care provider or return to the clinic if your symptoms do not resolve or worsen.Electronically signed by Carlos Roberts NP at 11:00 AM PST documented in this encounter Progress Notes Carlos Roberts NP - 10/28/2019 9:30 AM PSTFormatting of this note might be different fro m the original. Subjective: Patient ID: Andrea Suh is a 29 y.o. female. HPI 29 y.o. morbidly obese female presents with c/o right knee pain X 1 day. Pain started when she sat on a couch yesterday. Hx chronic right knee pain. No other s and s of acute distress. Calm demeanor. First day of LMP was 10/11/2019. Patient's medications, allergies, past medical, surgical, social and family histories were obtained and reviewed as appropriate. Review of Systems Musculoskeletal: Positive for arthralgias and myalgias. All other systems reviewed and are negative. Objective: BP 124/78 | Pulse 71 | Resp 16 | SpO2 98% Physical Exam Vitals signs reviewed. Constitutional: Appearance: Normal appearance. She is obese. HENT: Head: Normocephalic and atraumatic. Eyes: Conjunctiva/sclera: Conjunctivae normal. Pupils: Pupils are equal, round, and reactive to light. Neck: Musculoskeletal: Normal range of motion and neck supple. Cardiovascular: Rate and Rhythm: Normal rate and regular rhythm. Pulmonary: Effort: Pulmonary effort is normal. Breath sounds: Normal breath sounds. Abdominal: General: Bowel sounds are normal. Palpations: Abdomen is soft. Musculoskeletal: General: Tenderness present. Skin: General: Skin is warm and dry. Neurological: General: No focal deficit present. Mental Status: She is alert and oriented to person, place, and time. Psychiatric: Mood and Affect: Mood normal. Behavior: Behavior normal. Thought Content: Thought content normal. Judgment: Judgment normal. No joint laxity noted. Flexion of right knee is significantly diminished at present. Assessment: Right knee strain, acute onset. Right knee pain, chronic with acute exacerbation. Plan: Rest. Drink plenty of liquids. Apply ice to the affected area for 20-30 minutes 4 times a day and as needed. Start ibuprofen 600 mg. Tablets, take 1 tablet by mouth every 6 hours a s needed for discomfort. Go to the hospital radiology department for your xray. You will b e contacted if your xray shows anything concerning. Follow up with your primary care provid er or return to the clinic if your symptoms do not resolve or worsen. documented in this en counter Plan of Treatment +--------+ + + + + | Date | Type | Specialty | Care Team | Description | +--------+ + + + + | 02/18/ | Appointment | Rehabilitation | Erika Ernst, | | | 2019 | | | DO [address] [place] | | | | | | [place] [address] | | | | | | [phone] | | | | | | | | | | | | Julia Fisher, | | | | | | PT | | +--------+ + + + + | 02/18/ | Appointment | Rehabilitation | Erika Ernst, | | | 2019 | | | DO [address] [place] | | | | | | [place] [address] | | | | | | [phone] | | | | | | | | | | | | Genesis Ayon, OT | | +--------+ + + + + | 02/25/ | Office | Primary Care | Erika Ernst, | | | 2019 | Visit | | DO [address] [place] | | | | | | [place] [address] | | | | | | [phone] | | | | | | | [...] | | | | | [place] [address] | | | | | | [phone] | | | | | | | | +--------+ + + + + | 02/27/ | Appointment | Radiology | Dhara, | | | 2019 | | | DWAINE Ross [address] [place], | | | | | | [place] [address] | | | | | | [phone] | | | | | | | | +--------+ + + + + | 03/04/ | Appointment | Rehabilitation | Genesis Ayon OT | | | 2019 | | | | | +--------+ + + + + | 03/09/ | Office | Orthopedic Surgery | Jeffrey Gandhi, | | | 2019 | Visit | | [address] [facility] | | | | | | [place] [address] | | | | | | [phone] | | | | | | | [...] [place] | | | | | | [address] | | | | | | [phone] | | | | | | | [...] | | | | | [place] [address] | | | | | | [phone] | | | | | | | | | | | | Azul Yeboah, | | | | | | MD [address] | | | | | | [place] | | | | | | [place] [address] | | | | | | [phone] | | | | | | | [...] | | | | | | [place] [address] | | | | | | [phone] | | | | | | | | +--------+ + + + + documented as of this encounter Results JANNET Knee Right 3 Vw (10/28/2019 11:32 AM PST) + + | Specimen | + + | | + + + + + | Impressions | Performed At | + + + | No acute process. Minimal medial compartment degenerative change. | [facility] | | Dictated by: Braydon Stockton | | + [...] compartment degenerative | | change.Dictated by: Braydon Pryoram | | 12:10 PM | |October 27, [...]
--- OUTSIDE RECORDS SUMMARY | ~2020-02-18 | XMS | Encounter Summary ---
Demographics + + + | Address | [address] | | | [place] [address] | + + + | Home Phone [...] Team Providers + +------+ + | Care Crop Production Advisor Name | Role | Phone | [...] Medication Refill | | 2018 | | [facility] | MARKET PRESIDENT | | | | | [facility] [address] | | | | | | [address] [place], | | | | | | [place] [address] | | | | | | [phone] | | | +--------+--------+ + + + [...] 2019 | | | DO [address] | | | | | | [place] [address] | | | | | | [phone] | | | | | | | | | | | | Julia Fisher, | | | | | | PT | | +--------+ + + + + | 02/18/ | Appointment | Rehabilitation | Erika Ernst, | | | 2019 | | | DO [address] [place] | | | | | | [place] [address] | | | | | | [phone] | | | | | | | | | | | | Genesis Ayon OT | | +--------+ + + + + | 02/25/ | Office | Primary Care | Erika Ernst, | | | 2019 | Visit | | DO [address] [place] | | | | | | [place] [address] | | | | | | [phone] | | | | | | | [...] | | | | | | [place] [address] | | | | | | [phone] | | | | | | | | +--------+ + + + + | 02/27/ | Appointment | Radiology | Dhara, | | | 2019 | | | [address] | | | | | | [address] [facility], | | | | | | [place] [address] | | | | | | [phone] | | | | | | | [...] | | | | [place], [place] [address] | | | | | | [phone] | | | | | | | [...] [place] | | | | | | [address] | | | | | | [phone] | | | | | | | [...] | | | | | [place] [address] | | | | | | [phone] | | | | | | | | | | | | Azul Yeboah, | | | | | | MD [address] | | | | | | [place] | | | | | | [place] [address] | | | | | | [phone] | | | | | | | [...] | | | | | | [place] [address] | | | | | | [phone] | | | | | | | | +--------+ + + + + documented as of this encounter Visit Diagnoses + + | Diagnosis | + + | Depression, unspecified depression type | + + documented in this encounter"
--- OUTSIDE RECORDS SUMMARY | ~2020-02-18 | XMS | Encounter Summary ---
Demographics + + + | Address | [address] | | | [place] [address] | + + + | Home Phone [...] Team Providers + +------+ + | Care Transitional Living Specialist Name | Role | Phone | + +------+ + PCP | Unavailable | + +------+ + Encounter Details +--------+ + + + + | Date | Type | Department | Care Team | Description | +--------+ + + + + | 11/14/ | Hospital | [facility] | Anthony Alvarado MD | | | 2017 | Encounter | [facility] E[facility] [address] | [address] [place] | | | | | [address] [place] | [place], [place] | | | | | [place], [place] | [address] | | | | | [address] | [phone] | | | | | [phone] | | | +--------+ + + + [...] | | | | | [place] [address] | | | | | | [phone] | | | | | | | | | | | | Julia Fisher, | | | | | | PT | | +--------+ + + + + | 02/18/ | Appointment | Rehabilitation | Erika Ernst, | | | 2019 | | | DO [address] [place] | | | | | | [place] [address] | | | | | | [phone] | | | | | | | | | | | | Genesis Ayon, OT | | +--------+ + + + + | 02/25/ | Office | Primary Care | Erika Ernst, | | | 2019 | Visit | | DO [address] [place] | | | | | | [place] [address] | | | | | | [phone] | | | | | | | [...] | | | | | [place] [address] | | | | | | [phone] | | | | | | | | +--------+ + + + + | 02/27/ | Appointment | Radiology | Dhara, | | | 2019 | | | DWAINE Ross [address] [place], | | | | | | [place] [address] | | | | | | [phone] | | | | | | | | +--------+ + + + + | 03/04/ | Appointment | Rehabilitation | Genesis Ayon OT | | | 2019 | | | | | +--------+ + + + + | 03/09/ | Office | Orthopedic Surgery | Jeffrey Gandhi, | | | 2019 | Visit | | ID [address] [facility] | | | | | | [place] [address] | | | | | | [phone] | | | | | | | [...] [place] | | | | | | [address] | | | | | | [phone] | | | | | | | [...] | | | | | [place] [address] | | | | | | [phone] | | | | | | | | | | | | Azul Yeboah, | | | | | | MD [address] | | | | | | [place] | | | | | | [place] [address] | | | | | | [phone] | | | | | | | [...] | | | | | | [place] [address] | | | | | | [phone] | | | | | | | | +--------+ + + + + documented as of this encounter Visit Diagnoses Not on filedocumented in this encounter"
--- OUTSIDE RECORDS SUMMARY | ~2020-02-18 | XMS | Encounter Summary ---
Demographics + + + | Address | [address] | | | [place] [address] | + + + | Home Phone [...] Providers + +------+ + | Care Stock Roller Name | Role | Phone | + +------+ + | Erika Ernst DO | PCP | | + +------+ + Reason for Visit +--------+ + | Reason | Comments | +--------+ + | Other | Orthotics | +--------+ + Encounter Details +--------+ + + + + | Date | Type | Department | Care Team | Description | +--------+ + + + + | 12/24/ | Telephone | [facility] | Emily Mittal, DPM | Other (Orthotics) | | 2019 | | HOSPITAL [facility] | [address] [place] | | | | | [address] [place] | [place], [place] | | | | | [place], [place] | [address] | | | | | [address] | | | | | | [phone] | | | +--------+ + + + [...] | | | DO [address] [place] | | | | | | [place] [id number] | | | | | | [phone] | | | | | | | | | | | | Julia Fisher, | | | | | | PT | | +--------+ + + + + | 02/18/ | Appointment | Rehabilitation | Erika Ernst, | | | 2019 | | | DO [address] [place] | | | | | | [place] [address] | | | | | | [phone] | | | | | | | | | | | | Genesis Ayon OT | | +--------+ + + + + | 02/25/ | Office | Primary Care | Erika Ernst, | | | 2019 | Visit | | DO [address] [place] | | | | | | [place] [address] | | | | | | [phone] | | | | | | | [...] | | | | | [place] [address] | | | | | | [phone] | | | | | | | | +--------+ + + + + | 02/27/ | Appointment | Radiology | Dhara, | | | 2019 | | | DWAINE Ross [address] | | | | | | [address] [facility], | | | | | | [place] [address] | | | | | | [phone] | | | | | | | [...] | | | | | [place] [address] | | | | | | [phone] | | | | | | | [...] [place] | | | | | | [address] | | | | | | [phone] | | | | | | | [...] | | | | | [place] [address] | | | | | | [phone] | | | | | | | | | | | | Azul Yeboah, | | | | | | MD [address] | | | | | | [place] | | | | | | [place] [address] | | | | | | [phone] | | | | | | | [...] | | | | | | [place] [address] | | | | | | [phone] | | | | | | | | +--------+ + + + + documented as of this encounter Visit Diagnoses Not on filedocumented in this encounter"
--- OUTSIDE RECORDS SUMMARY | ~2020-02-18 | XMS | Encounter Summary ---
Demographics + + + | Address | [address] | | | [place] [address] | + + + | Home Phone [...] Team Providers + +------+ + | Care Microsoft Dynamics Ax Developer Name | Role | Phone | [...] Breathing Problem | | 2020 | | [facility] | DO [address] | (Pt's cold symptoms | | | | [facility] | [place] [address] | not better) | | | [address] [place], | [phone] | | | | | [place] [address] | | | | | | [phone] | | | +--------+ + + + [...] | | | | | [place] [address] | | | | | | [phone] | | | | | | | | | | | | Julia Fisher, | | | | | | PT | | +--------+ + + + + | 02/18/ | Appointment | Rehabilitation | Erika Ernst, | | | 2019 | | | DO [address] | | | | | | [place] [address] | | | | | | [phone] | | | | | | | | | | | | Genesis Ayon, OT | | +--------+ + + + + | 02/25/ | Office | Primary Care | Erika Ernst, | | | 2019 | Visit | | DO [address] | | | | | | [place] [address] | | | | | | [phone] | | | | | | | [...] | | | | | [place] [address] | | | | | | [phone] | | | | | | | | +--------+ + + + + | 02/27/ | Appointment | Radiology | Dhara, | | | 2019 | | | DWAINE Ross [address] | | | | | [address] [place], | | | | | | [place] [address] | | | | | | [phone] | | | | | | | | +--------+ + + + + | 03/04/ | Appointment | Rehabilitation | Genesis Ayon OT | | | 2019 | | | | | +--------+ + + + + | 03/09/ | Office | Orthopedic Surgery | Jeffrey Gandhi, | | | 2019 | Visit | | [address] [facility] | | | | | | [place] [address] | | | | | | [phone] | | | | | | | [...] [place] | | | | | | [address] | | | | | | [phone] | | | | | | | [...] | | | | | [place] [address] | | | | | | [phone] | | | | | | | | | | | | Azul Yeboah, | | | | | | MD [address] | | | | | | [place] | | | | | | [place] [address] | | | | | | [phone] | | | | | | | [...] | | | | | | [place] [address] | | | | | | [phone] | | | | | | | | +--------+ + + + + documented as of this encounter Visit Diagnoses Not on filedocumented in this encounter"
--- OUTSIDE RECORDS SUMMARY | ~2020-02-18 | XMS | Encounter Summary ---
Demographics + + + | Address | [address] | | | [place] [address] | + + + | Home Phone [...] Providers + +------+ + | Care Head Automatic Sawyer Name | Role | Phone | [...] | Specialty | Physical | Diagnoses | Tank Ernst | | | Services | Therapy | TMJ | Erika A, DO | [place] | | | Required | | (temporomand | [address] | PHYSICAL | | | | | ibular joint | [place], | THERAPY - | | | | | disorder) | [place] [address] | [place] | | | | | Chronic | Phone: | 1100 | | | | | midline low | [phone] | [facility] | | | | | back pain | Fax: | 15 | | | | | without | [phone] | [place], [place] | | | | | sciatica | | [address] | | | | | Left hip | | Phone: | | | | | pain | | [phone] | | | | | | | Fax: | | | | | | | [phone] | +--------+ + + + + + [...] | [facility] | [place] [address] | (Primary Dx); TMJ | | | | [address] [place], | [phone] | (temporomandibular | | | | [place] [address] | | joint disorder); | | | | [phone] | | Chronic midline low | | [...] | Blood Pressure | 130/90 | 03/02/2018 1:00 PM | | | | | PDT | | + + + + + | Pulse | 84 | 03/02/2018 1:00 PM | | | | | PDT | | + + + + + | Temperature | - | - | | + + + + + | Respiratory Rate | 16 | 03/02/2018 1:00 PM | | | | | PDT | | + + + + + | Oxygen Saturation | 94% | 03/02/2018 1:00 PM | | | | | PDT | | + + + + + | Inhaled Oxygen | - | - | | | Concentration | | | | + + + + + | Weight | 174.4 kg (384 lb 6.4 | 03/02/2018 1:00 PM | | | | oz) | PDT | | + + + + + | Height | 177.8 cm (5' 10") | 03/02/2018 1:00 PM | | | | | PDT | | + + + + + | Body Mass Index | 55.16 | 03/02/2018 1:00 PM | | | | | PDT | | + + + + + documented in this encounter Progress Erika Cespedes DO - 03/02/2018 1:00 PM PDTFormatting of this note might [...] ( she wants to do this in [place]) referral for TMJ and left hip and lum bar strain. Ibuprofen ice and elevation for the foot and xray of the area. Fasting lab, lipi ds, CMP and TSH. documented in this en counter Plan of Treatment +--------+ + + + + | Date | Type | Specialty | Care Team | Description | +--------+ + + + + | 02/18/ | Appointment | Rehabilitation | Erika Ernst, | | | 2019 | | | DO [address] [place] | | | | | | [place] [address] | | | | | | [phone] | | | | | | | | | | | | Julia Fisher, | | | | | | PT | | +--------+ + + + + | 02/18/ | Appointment | Rehabilitation | Erika Ernst, | | | 2019 | | | DO [address] [place] | | | | | | [place] [address] | | | | | | [phone] | | | | | | | | | | | | Genesis Ayon OT | | +--------+ + + + + | 02/25/ | Office | Primary Care | Erika Ernst, | | | 2019 | Visit | | DO [address] [place] | | | | | | [place] [address] | | | | | | [phone] | | | | | | | [...] | | | | | | [place] [address] | | | | | | [phone] | | | | | | | | +--------+ + + + + | 02/27/ | Appointment | Radiology | Dhara, | | | 2019 | | | DWAINE Ross [address] | | | | [address] [place], | | | | | | [place] [address] | | | | | | [phone] | | | | | | | [...] ST | | | | | | [place] [address] | | | | | | [phone] | | | | | | | [...] [place] | | | | | | [address] | | | | | | [phone] | | | | | | | [...] | | | | | [place] [address] | | | | | | [phone] | | | | | | | | | | | | Azul Yeboah, | | | | | | MD [address] | | | | | | [place] | | | | | | [place] [address] | | | | | | [phone] | | | | | | | [...] | | | | | | [place] [address] | | | | | | [phone] | | | | | | | | +--------+ + + + + + + +--------+ + + | Name | Type | Priori | Associated Diagnoses | Order Schedule | | | | ty | | | + + +--------+ + + | Ambulatory referral | Outpatient | Routin | TMJ | Ordered: 03/02/2018 | | to Physical Therapy | Referral | e | (temporomandibular | | | | | | joint disorder) | | | | | | Chronic midline low | | | | | | back pain without | | | | | | sciatica Left hip | | | | | | pain | | + + +--------+ [...] + | Yoni Grullon Results In - 03/14/2018 4:59 PM PDT [...] process | | is identified.Dictated by: Braydon Booneectronically Signed by: Braydon Stockton on | | 03/14/2018 4:55 PM | |None | | | |FINDINGS: | |Films in multiple projections show no evidence of an acute fracture. No subluxation. No dislocation. There is soft tissue swelling of the medial foot. Age appropriate bone health claims examiner al density. | | | |IMPRESSION: [...] | + +---------+ + + TSH (03/14/2018 3:12 PM PDT) + +-------+ + + + | Component | Value | Ref Range | Performed | Pathologist | | | | | At | Signature | + +-------+ + + + | TSH | 2.24 | 0.36 - 3.74 | [place] | [...] [facility] | [address] | [place], [place] | [phone] | | [facility] | | [address] | | | [facility] | | | | + + + + + Lipid Panel (03/14/2018 3:12 PM PDT) + + + + + + | Component | Value | Ref Range | Performed | Pathologist | | | | | At | Signature | + + + + + + | Triglycerid | 91 | 30 - 200 mg/dL | [place] | | | es | | | [facility] | | | | | | [facility] | | | | | | [facility] | | | | | | [facility] | | + + + + + + | Cholesterol | 136 | 0 - 200 mg/dL | [place] | | | | | | [facility] | | | | | | [facility] | | | | | | [facility] | | | | | | [facility] | | + + + + + + | HDL | 37 (L) | >=40 mg/dL | [place] | | | | | | [facility] | | | | | | [facility] | | | | | | [facility] | | | | | | [facility] | | + + + + + + | Chol/HDL | 3.7 | | [place] | | | Ratio | | | [facility] | [facility] | | | | | | [facility] | | | | | | [facility] | | | | | | [facility] | | + + + + + + | LDL, | 81Comment: LDL reference | <=150 mg/dL | [place] | | | Calculated | range: < 100 | | [facility] | | | | mg/dL [id number] - | | [facility] | | | | 129 mg/dL Near | | REG[facility] | | | | [id number] - 159 mg/dL | | MEDICAL | | | | [id number] - 189 | | CENTER LAB | | | | mg/dL High | | | | | | > 190 mg/dL Very | | | | | | High | | | | + + + + + + | Fasting? | Yes | | [place] | | | | | [...] + | FASTING 20 HRS | [facility] [facility] | | | [facility] | [facility] | | [facility] | | | LAB | + + + + + + + + | Performing | Address | City/State/Zipcode | Phone Number | | Organization | | | | + + + + + | [facility] | [address] | [place], [place] | [phone] | | [facility] | | [address] | | | [facility] | | | | + + + + + Comprehensive Metabolic Panel (03/14/2018 3:12 PM PDT) + + + + + + | Component | Value | Ref Range | Performed | Pathologist | | | | | At | Signature | + + + + + + | Na | 142 | 132 - 143 | [place] | | | | | mmol/L | [facility] | | | | | | [facility] | | | | | | [facility] | | | | | | [facility] | | + + + + + + | K | 3.6 | 3.3 - 4.9 | [place] | | | | | mmol/L | [facility] | | | | | | [facility] | | | | | | [facility] | | | | | | [facility] | | + + + + + + | Cl | 108 [...] Gap | 7 | 7 - 16 mmol/L | [place] | | | | | | [facility] | | | | | | [facility] | | | | | | [facility] | | | | | | [facility] | | + + + + + + | Glucose | 82 | 70 - 110 mg/dL [...] + + + + | Creatinine | 0.75 | 0.70 - 1.40 | [place] | | | | | [...] | mL/min/1.73m2 | [facility] | | | [facility] | RATE,ESTIMATED | | [facility] | | | | mL/min/1.68z8Welt than | | REG[facility] | | | | 60 Chronic kidney | | MEDICAL | | | | disease,if found over a | | CENTER LAB | | | | 3-month period.Less than | | | | | | 15 Kidney failureFor | | | | | | | | | | | | Americans,multiply the | | | | | | calculated GFR by 1.21. | | | | | | | | | | + + + + + + | Calcium | 8.3 | 8.3 - 10.0 | [place] | [...] + + + + | Bilirubin | 1.0 | 0.0 - 1.2 mg/dL | [place] | | | Total | | | [facility] | | | | | | [facility] | | | | | | [facility] | | | | | | [facility] | | + + + + + + | Total | 6.8 | 6.6 - 8.5 g/dL [...] + + + + | Alkaline | 73 | 46 - 116 U/L | [place] | | | Phosphatase | | | [facility] | | | | | | [facility] | | | | | | [facility] | | | | | | [facility] | | + + + + + + | Globulin | 3.4 | g/dL | [place] | | | | | | [facility] | | | | | | [facility] | | | | | | [facility] | | | | | | [facility] | | + + + + + + | Albumin/Nancy | 1.0 | | [place] | | | bulin Ratio | | | [facility] | | | | | [facility] | | | | | | [facility] | | | | | | [facility] | | | | | | [facility] | | + + + + + + | BUN/Creatin | 10.7 | 7.0 - 24.0 | [place] | | | ine Ratio | | | [facility] | | | | | | [facility] | | | | | | [facility] | | | | | | [facility] | | + + + + + + | Fasting? | Yes | | [place] | | | | | [...] + + + | [facility] [facility] | [address] | [place], [place] | [phone] | | [facility] | | [address] | | | [facility] | | | | + + + + + documented in this encounter Visit Diagnoses + + | Diagnosis | + + | Essential hypertension - Primary Unspecified essential hypertension | + + | TMJ (temporomandibular joint disorder) Temporomandibular joint disorders, unspecified | + + | Chronic midline low back pain without sciatica | + + | Left hip pain Pain in joint, pelvic region and thigh | + + | Right foot pain Pain in limb | + + | Acquired hypothyroidism Unspecified hypothyroidism | + + documented in this encounter
--- OUTSIDE RECORDS SUMMARY | ~2020-02-18 | XMS | Encounter Summary ---
Demographics + + + | Address | [address] | | | [place] [address] | + + + | Home Phone [...] Team Providers + +------+ + | Care Wax Machine Operator Name | Role | Phone [...] | | | Required | Rehabilitatio | deltoid | [address] | [address] | | | | n | ligament of | [place], | | | | | right ankle, | [place] [address] | [place] [address] | | | | | subsequent | Phone: | Phone: | | | | | encounter | [phone] | [phone] | | | | | Procedures | Fax: | Fax: | | | | | PT EVAL | [phone] | [phone] | +--------+ + + + + + Reason for Visit + + + | Reason | Comments | + + + | Follow-up | ER FU | + + + Encounter Details +--------+---------+ + + + | Date | Type | Department | Care Team | Description | +--------+---------+ + + + | 10/01/ | Office | [facility] [facility] | Erika Ernst, | Sprain of deltoid | | 2019 | Visit | [facility] | DO [address] | ligament of right | | | | [facility] | [place] [address] | ankle, subsequent | | | | [address] [place], | [phone] | encounter (Primary | | | | [place] [address] | | Dx); Scratch of | | | | [phone] | | lower leg, right, | | | | | | initial encounter; | | | | | | Essential [...] + + + | Blood Pressure | 144/90 | 10/01/2019 1:00 PM | | | | | PST | | + + + + + | Pulse | 98 | 10/01/2019 1:00 PM | | | | | PST | | + + + + + | Temperature | - | - | | + + + + + | Respiratory Rate | 18 | 10/01/2019 1:00 PM | | | | | PST | | + + + + + | Oxygen Saturation | 98% | 10/01/2019 1:00 PM | | | | | PST | | + + + + + | Inhaled Oxygen | - | - | | | Concentration | | | | + + + + + | Weight | 169.6 kg (374 lb) | 10/01/2019 1:00 PM | | | | | PST | | + + + + + | Height | 177.8 cm (5' 10") | 10/01/2019 1:00 PM | | | | | PST | | + + + + + | Body Mass Index | 53.66 | 10/01/2019 1:00 PM | | | | | PST | | + + + + + documented in this encounter Progress Erika Cespedes DO - 10/01/2019 1:00 PM PSTFormatting of this note might be different fro m the original. Subjective: Patient ID: Andrea Suh is a 29 y.o. female. Here to FU from a ER visit in [place] for a minor scratch on the lateral lower right leg. She is not sure how it happened. Is long but not deep. No treatment by the ER. HTN is eleva everardo today but she is taking cold med and this is most likely the cause and we will monitor f or need to increase dose when done with cold meds. She is getting over the URI. She has a ri ght ankle sprain and had seen ortho and had MRI that reads as no acute findings but ortho re commended PT so we will order that. States still gets some swelling lateral right ankle and some intermittent pain. Non-smoker. Review of Systems As above Objective: BP 144/90 | Pulse 98 | Resp 18 | Ht 1.778 m (5' 10") | Wt (!) 169.6 kg (374 lb) | SpO2 98% | BMI 53.66 kg/m Physical Exam Constitutional: Appearance: Normal appearance. HENT: Head: Normocephalic and atraumatic. Right Ear: Tympanic membrane and ear canal normal. Left Ear: Tympanic membrane and ear canal normal. Nose: Congestion present. Mouth/Throat: Mouth: Mucous membranes are moist. Pharynx: Oropharynx is clear. Eyes: Extraocular Movements: Extraocular movements intact. Conjunctiva/sclera: Conjunctivae normal. Pupils: Pupils are equal, round, and reactive to light. Cardiovascular: Rate and Rhythm: Normal rate and regular rhythm. Heart sounds: No murmur. Pulmonary: Effort: Pulmonary effort is normal. No respiratory distress. Breath sounds: Normal breath sounds. Musculoskeletal: Right lower leg: No edema. Left lower leg: No edema. Skin: General: Skin is warm and dry. Comments: Minor scratch 5 inch long lateral lower right calf area with no surrounding er ythema and is dry. Neurological: General: No focal deficit present. Mental Status: She is alert and oriented to person, place, and time. Gait: Gait normal. Psychiatric: Mood and Affect: Mood normal. Behavior: Behavior normal. Thought Content: Thought content normal. Judgment: Judgment normal. Assessment: 1. Sprain of deltoid ligament of right ankle, subsequent encounter * [place] [facility] - AMB Referral 2. Scratch of lower leg, right, initial encounter 3. Essential hypertension Plan: Referral to PT for right ankle sprain. Monitor scratch on leg for any redness or swelling. Bactroban lakeisha OTC until healed. Continue current HTN med and monitor documented in this en counter Plan of Treatment +--------+ + + + + | Date | Type | Specialty | Care Team | Description | +--------+ + + + + | 02/18/ | Appointment | Rehabilitation | Erika Ernst, | | | 2019 | | | DO [address] [place] | | | | | | [place] [address] | | | | | | [phone] | | | | | | | | | | | | Julia Fisher, | | | | | | PT | | +--------+ + + + + | 02/18/ | Appointment | Rehabilitation | Erika Ernst, | | | 2019 | | | DO [address] [place] | | | | | | [place] [address] | | | | | | [phone] | | | | | | | | | | | | Genesis Ayon, OT | | +--------+ + + + + | 02/25/ | Office | Primary Care | Erika Ernst, | | | 2019 | Visit | | DO [address] [place] | | | | | | [place] [address] | | | | | | [phone] | | | | | | | [...] | | | | | [place] [address] | | | | | | [phone] | | | | | | | | +--------+ + + + + | 02/27/ | Appointment | Radiology | Dhara, | | | 2019 | | | DWAINE Ross [address] [place], | | | | | | [place] [address] | | | | | | [phone] | | | | | | | | +--------+ + + + + | 03/04/ | Appointment | Rehabilitation | Genesis Ayon OT | | | 2019 | | | | | +--------+ + + + + | 03/09/ | Office | Orthopedic Surgery | Jeffrey Gandhi, | | | 2019 | Visit | | [place] [address] [facility] | | | | | | [place] [address] | | | | | | [phone] | | | | | | | [...] [place] | | | | | | [address] | | | | | | [phone] | | | | | | | [...] | | | | | [place] [address] | | | | | | [phone] | | | | | | | | | | | | Azul Yeboah, | | | | | | MD [address] | | | | | | [place] | | | | | | [place] [address] | | | | | | [phone] | | | | | | | [...] | | | | | | [place] [address] | | | | | | [phone] | | | | | | | | +--------+ + + + + + + +--------+ + + | Name | Type | Priori | Associated Diagnoses | Order Schedule | | | | ty | | | + + +--------+ + + | * [place] [facility] | Outpatient | Routin | Sprain of deltoid | Ordered: 10/01/2019 | | [facility] | Referral | e | ligament of right | | | - AMB Referral | | | ankle, subsequent | | | | | | encounter | | + + +--------+ + + documented as of this encounter Visit Diagnoses + + | Diagnosis | + + | Sprain of deltoid ligament of right ankle, subsequent encounter - Primary | + + | Scratch of lower leg, right, initial encounter | + + | Essential hypertension Unspecified essential hypertension | + + documented in this encounter
--- OUTSIDE RECORDS SUMMARY | ~2020-02-18 | XMS | Encounter Summary ---
Demographics + + + | Address | [address] | | | [place] [address] | + + + | Home Phone [...] Team Providers + +------+ + | Care Felling Bucking Supervisor Name | Role | Phone | [...] | | | [place] TRE[place] | [place] [address] | [place] [address] | | | | | | Phone: | Phone: | | | | | | [phone] | [phone] | | | | | | Fax: | Fax: | | | | | | [phone] | [phone] | +--------+--------+ + + + + Encounter [...] [address] [place] | [place] [address] | | | | | [place], [place] | [phone] | | | | | [address] | | | | | | [phone] | Julia Peña, | | | | | | BLADE OPERATOR | | +--------+ + + + [...] | 11/26/19 | | | (VITAMIN D3) [address] | mouth Once a week | tablet [...] of this encounter Progress Notes Julia Peña BLADE OPERATOR - 01/15/2019 10:36 AM PDTFormatting of this note might be differen t from the original. [facility] PT [address] [place] [address] Physical Therapy Daily Treatment Note Date: 01/15/2019 [...] blue thera band; SLS. Ongoing: Wall sits [id number] holds, Bridging 3 x 10 reps, Side [...] | | | | | [place] [address] | | | | | | [phone] | | | | | | | | | | | | Julia Fisher, | | | | | | PT | | +--------+ + + + + | 02/18/ | Appointment | Rehabilitation | Erika Ernst, | | | 2019 | | | DO [address] [place] | | | | | | [place] [address] | | | | | | [phone] | | | | | | | | | | | | Genesis Ayon OT | | +--------+ + + + + | 02/25/ | Office | Primary Care | Erika Ernst, | | | 2019 | Visit | | DO [address] [place] | | | | | | [place] [address] | | | | | | [phone] | | | | | | | | +--------+ + + + + | 02/25/ | Appointment | Rehabilitation | Genessi Ayon OT | | | 2019 | | | | | +--------+ + + + + | 02/26/ | Virtual | Rehabilitation | Usha Rodriguez | | | 2019 | Office | | MD Precious [address] | | | | Visit | | [address] [place] | | | | | | [place] [address] | | | | | | [phone] | | | | | | | | +--------+ + + + + | 02/27/ | Appointment | Radiology | Dhara, | | | 2019 | | | DWAINE Ross [address] | | | | | | [address] [facility], | | | | | | [place] [address] | | | | | | [phone] | | | | | | | [...] | | | | | [place] [address] | | | | | | [phone] | | | | | | | [...] [place] | | | | | | [address] | | | | | | [phone] | | | | | | | [...] | | | | | [place] [address] | | | | | | [phone] | | | | | | | | | | | | Azul Yeboah, | | | | | | MD [address] | | | | | | [place] | | | | | | [place] [address] | | | | | | [phone] | | | | | | | [...] | | | | | | [place] [address] | | | | | | [phone] | | | | | | | | +--------+ + + + + documented as of this encounter Visit Diagnoses + + | Diagnosis | + + | Acute pain of right knee - Primary | + + documented in this encounter"
--- OUTSIDE RECORDS SUMMARY | ~2020-02-18 | XMS | Encounter Summary ---
Demographics + + + | Address | [address] | | | [place] [address] | + + + | Home Phone [...] Team Providers + +------+ + | Care Hat Forming Machine Operator Name | Role | Phone | + +------+ + | Erika Ernst DO | PCP | | + +------+ + Reason for Visit + + + | Reason | Comments | + + + | Breathing Problem | | + + + Encounter Details +--------+ + + + + | Date | Type | Department | Care Team | Description | +--------+ + + + + | 01/22/ | Telephone | [facility] | Erika Ernst, | Breathing Problem | | 2020 | | [facility] | DO [address] | | | | | [facility] | [facility] [place] [address] | | | | | [address] [facility], | [phone] | | | | | [place] [address] | | | | | | [phone] | | | +--------+ + + + [...] | | | | | [place] [address] | | | | | | [phone] | | | | | | | | | | | | Julia Fisher, | | | | | | PT | | +--------+ + + + + | 02/18/ | Appointment | Rehabilitation | Erika Ernst, | | | 2019 | | | DO [address] [place] | | | | | | [place] [address] | | | | | | [phone] | | | | | | | | | | | | Genesis Ayon OT | | +--------+ + + + + | 02/25/ | Office | Primary Care | Erika Ernst, | | | 2019 | Visit | | DO [address] [place] | | | | | | [place] [address] | | | | | | [phone] | | | | | | | [...] | | | | | [place] [address] | | | | | | [phone] | | | | | | | | +--------+ + + + + | 02/27/ | Appointment | Radiology | Dhara, | | | 2019 | | | DWAINE Ross [address] [place], | | | | | | [place] [address] | | | | | | [phone] | | | | | | | [...] [place] | | | | | | [place] [address] | | | | | | [phone] | | | | | | | [...] [place] | | | | | | [address] | | | | | | [place] | | | | | | [address] | | | | | | [phone] | | | | | | | [...] | | | | | [place] [address] | | | | | | [phone] | | | | | | | | | | | | Azul Yeboah, | | | | | | MD [address] | | | | | | [address] [place] | | | | | | [place] [address] | | | | | | [phone] | | | | | | | [...] | | | | | | [place] [address] | | | | | | [phone] | | | | | | | | +--------+ + + + + documented as of this encounter Visit Diagnoses Not on filedocumented in this encounter"
--- OUTSIDE RECORDS SUMMARY | ~2020-02-18 | XMS | Encounter Summary ---
Demographics + + + | Address | [address] | | | [place] [address] | + + + | Home Phone [...] Providers + +------+ + | Care Crop Scout Name | Role | Phone | + [...] | | | of left | [place] [address] | [place] [address] | | | | | ankle, | Phone: | Phone: | | | | | initial | [phone] | [phone] | | | | | encounter | Fax: | Fax: | | | | | Procedures | [phone] | [phone] | | | | | PT TREAT | | | +--------+--------+ + + + + Encounter Details +--------+ + + + + | Date | Type | Department | Care Team | Description | +--------+ + + + + | 09/11/ | Hospital | [facility] [facility] | Erika Ernst, | Sprain of left | | 2018 | Encounter | HOSPITAL THERAPY PT | DO [address] [place] | ankle, subsequent | | | | [address] [place] | [place] [address] | encounter (Primary | | | | [place], [place] | [phone] | Dx); Fall on same | | | | [address] | | level from slipping, | | | | [phone] | Julia Castillo | subsequent | | | | | J, PT | encounter | +--------+ + + [...] documented as of this encounter Progress Notes Zastrow, Julia J, PT - 09/11/2018 1:53 PM PSTFormatting of this note might be differen t from the original. [facility] THERAPY PT [address] [place] [address] Physical Therapy Daily Treatment Note Date: 09/11/2018 Patient Information Patient Name: Andrea Suh Date of : 1990 Age: 28 y.o. Encounter Diagnoses Code Name Primary? S93.402D Sprain of left ankle, subsequent encounter Yes W01.0XXD Fall on same level from slipping, subsequent encounter Date of Onset: 06/11/2018 Referring Provider: Erika Ernst DO Objective Pain Assessment: Pain Rating Pre Assessment: 4 Pain Rating Post Assessment: 4 Location: ankle Standardized Tests: Lower Extremity Functional Scale (LEFS) Lower Extremity Functional Scale Goal: 75 Today's Treatment Patient Name: Andrea Suh/: 1990/ Start Time: 1108 Stop time: 1140 Duration: 32 minutes Timed Treatment Codes: 32 minutes # of PT Visits to Date: 12 Visit Summary: S: Pt ready to trial pool. States ankle hurts the most with prolonged walki ng. A: Pt without increase in ankle pain with any of the aquatic exercises. Pt will monito r for symptoms change after aquatic session. Next Visit Information: Progress LE strength and balance exercises with steps, bosu, bridge progression, quantum, leg press, lunges. Progress aquatic exercise as tolerated. Patient/Caregiver Education Learner: Patient Readiness: Acceptance Method: Explanation, Demonstration Response: Verbalizes Understanding, Demonstrated Understanding, Needs Reinforcement Comment: aquatic exercise Aquatic Basic Exercise Program Walkin minutes Depth: chest Type of Walking: forward, backward, side step (slowly at beginning of session, increased ve locity at end of session) Stretches: calf, hamstrings Aerobics Aerobic Exercise: LE Exercise LE Exercise - Level of Assistance: wall assist LE Exercise Comments: ankle ROM, heel raises, toe raises, squats, push offs: sideways, fwd , backward; Balance: tandem, SLS, march/balance across pool Assessment Rehabilitation potential: Patient demonstrates good potential to achieve established goals to address the documented impairments by participating in skilled physical therapy services. Goals: Patient Reported Outcome Goals Lower Extremity Functional Scale Goal: 75 OP PT Goals Goal 1: Patient will [...] Goal 3 Status: Ongoing; able to ambulate 0.30 miles today Goal 4: Patient will experience reduced L ankle pain of 1/10 or less for 2 consecutive week s in order to return to previous level of activity. Goal 4 Status: Ongoing; pain rated at 4/10 today Electronically signed by: Julia Castillo, PT, 09/11/2018 13:53 Patient Name: Andrea Henaonanci/: 1990/ documented in [...] | | | | | [place] [address] | | | | | | [phone] | | | | | | | | | | | | Julia Fisher, | | | | | | PT | | +--------+ + + + + | 02/18/ | Appointment | Rehabilitation | Erika Ernst, | | | 2019 | | | DO [address] [place] | | | | | | [place] [address] | | | | | | [phone] | | | | | | | | | | | | Genesis Ayon OT | | +--------+ + + + + | 02/25/ | Office | Primary Care | Erika Ernst, | | | 2019 | Visit | | DO [address] [place] | | | | | | [place] [address] | | | | | | [phone] | | | | | | | [...] | | | | | [place] [address] | | | | | | [phone] | | | | | | | | +--------+ + + + + | 02/27/ | Appointment | Radiology | Dhara, | | | 2019 | | | [address] | | | | | | [address] [facility], | | | | | | [place] [address] | | | | | | [phone] | | | | | | | [...] [place] | | | | | | [place] [address] | | | | | | [phone] | | | | | | | [...] [place] | | | | | | [address] | | | | | | [phone] | | | | | | | [...] | | | | | [place] [address] | | | | | | [phone] | | | | | | | | | | | | Azul Yeboah, | | | | | | MD [address] | | | | | | [place] | | | | | | [place] [address] | | | | | | [phone] | | | | | | | [...] | | | | [address] [place], | | | | | | [place] [address] | | | | | | [phone] | | | | | | | | +--------+ + + + + documented as of this encounter Visit Diagnoses + + | Diagnosis | + + | Sprain of left ankle, subsequent encounter - Primary | + + | Fall on same level from slipping, subsequent encounter | + + documented in this encounter"
--- OUTSIDE RECORDS SUMMARY | ~2020-02-18 | XMS | Encounter Summary ---
Demographics + + + | Address | [address] | | | [place] [address] | + + + | Home Phone | | + + + | Preferred Language | Unknown | + + + | Marital Status | Single | + + + | Islam Affiliation | Unknown | + + + [...] Team Providers + +------+ + | Care Plastics Fabricator And Assembler Name | Role | Phone | + +------+ + | Erika Ernst DO | PCP | | + +------+ + Reason for Visit Service/Procedure (Routine) +--------+--------+ + + + + | [...] | | | | | MONITOR - [address] | [place] | [address] | | | | | HOUR | [address] | Phone: | | | | | | Phone: | [phone] | | | | | | [phone] | Fax: | | | | | | Fax: | [phone] | | | | | | [phone] | | +--------+--------+ + + + + Encounter Details +--------+ + + + + | Date | Type | Department | Care Team | Description | +--------+ + + + + | 12/21/ | Hospital | [facility] [facility] | Erika Ernst, | Heart palpitations | | 2018 | Encounter | HOSPITAL RESPIRATORY | DO [address] | | | | | THERAPY [address] | [place] [address] | | | | | [address] [place] | [phone] | | | | | [address] | | | | | | [phone] | | | +--------+ + + + [...] | 11/26/19 | | | (VITAMIN D3) 70964 | mouth Once a week | tablet [...] documented as of this encounter Progress Notes Mauro Rae, EARTH OBSERVATIONS CHIEF SCIENTIST - 12/21/2018 10:23 AM PDTZio Patch placed on Andrea Suh for 2 days. Zio Patch Serial #: [id number]. Tegoderm applied over Zio Patch (Upper and Lower Wings) to help with placement and adhesion . Andrea Suh asked to call the [facility] RT department if any allergic reaction occurs. Patient given verbal and written instructions. Patient to call the [facility] RT Department with any concerns or issues. Electronically signed by: Mauro Rae RRT 12/21/2018 10:23 documented in this encounter Plan of Treatment +--------+ + + + + | Date | Type | Specialty | Care Team | Description | +--------+ + + + + | 02/18/ | Appointment | Rehabilitation | Erika Ernst, | | | 2019 | | | DO [address] [place] | | | | | | [place] [address] | | | | | | [phone] | | | | | | | | | | | | Julia Fisher, | | | | | | PT | | +--------+ + + + + | 02/18/ | Appointment | Rehabilitation | Erika Ernst, | | | 2019 | | | DO [address] [place] | | | | | | [place] [address] | | | | | | [phone] | | | | | | | | | | | | Genesis Ayon OT | | +--------+ + + + + | 02/25/ | Office | Primary Care | Erika Ernst, | | | 2019 | Visit | | DO [address] [place] | | | | | | [place] [address] | | | | | | [phone] | | | | | | | [...] | | | | | [place] [address] | | | | | | [phone] | | | | | | | | +--------+ + + + + | 02/27/ | Appointment | Radiology | Dhara, | | | 2019 | | | [address] | | | | | | [address] [facility], | | | | | | [place] [address] | | | | | | [phone] | | | | | | | [...] [place] | | | | | | [place] [address] | | | | | | [phone] | | | | | | | [...] [place] | | | | | | [address] | | | | | | [phone] | | | | | | | [...] | | | | | [place] [address] | | | | | | [phone] | | | | | | | | | | | | Azul Yeboah, | | | | | | MD [address] | | | | | | [place] | | | | | | [place] [address] | | | | | | [phone] | | | | | | | [...] | | | | | [address] [place], | | | | | | [place] [address] | | | | | | [phone] | | | | | | | | +--------+ + + + + documented as of this encounter Procedures + +--------+ + + + | Procedure Name | Priori | Date/Time | Associated Diagnosis | Comments | | | ty | | | | + +--------+ + + + | HOLTER MONITOR - 48 | Routin | 01/02/2019 | Heart palpitations | Results for this | | HOUR | e | 9:14 AM | | [...] + +---------+ + + | MICHAEL DIOP TRACEMASTAKBAR | | | | + +---------+ + + documented in this encounter Visit Diagnoses + + | Diagnosis | + + | Heart palpitations Palpitations | + + documented in this encounter"
--- OUTSIDE RECORDS SUMMARY | ~2020-02-18 | XMS | Encounter Summary ---
Demographics + + + | Address | [address] | | | [place] [address] | + + + | Home Phone [...] Providers + +------+ + | Care Plaster Tender Name | Role | Phone | [...] | +--------+ + + + + | 12/15/ | Telephone | [facility] [facility] | Emily Mittal DPM | Other (referral) | | 2020 | | HOSPITAL PODIATRY | [address] [place] | | | | | [address] [place] [address] | [place], [place] | | | | | [place], [place] | [address] | | | | | [address] | | | | | | [phone] | | | +--------+ + + + [...] 2019 | | | DO [address] | | | | | | [place] [address] | | | | | | [phone] | | | | | | | | | | | | Juila Fisher, | | | | | | PT | | +--------+ + + + + | 02/18/ | Appointment | Rehabilitation | Erika Ernst, | | | 2019 | | | DO [address] [place] | | | | | | [place] [address] | | | | | | [phone] | | | | | | | | | | | | Genesis Ayon OT | | +--------+ + + + + | 02/25/ | Office | Primary Care | Erika Ernst, | | | 2019 | Visit | | DO [address] [place] | | | | | | [place] [address] | | | | | | [phone] | | | | | | | [...] | | | | | [place] [address] | | | | | | [phone] | | | | | | | | +--------+ + + + + | 02/27/ | Appointment | Radiology | Dhara, | | | 2019 | | | [address] | | | | | | [address] [facility], | | | | | | [place] [address] | | | | | | [phone] | | | | | | | | +--------+ + + + + | 03/04/ | Appointment | Rehabilitation | Genesis Ayon OT | | | 2019 | | | | | +--------+ + + + + | 03/09/ | Office | Orthopedic Surgery | Jeffrey Gandhi, | | | 2019 | Visit | | [address] | | | | | | [place] [address] | | | | | | [phone] | | | | | | | [...] [place] | | | | | | [address] | | | | | | [phone] | | | | | | | [...] | | | | | [place] [address] | | | | | | [phone] | | | | | | | | | | | | Azul Yeboah, | | | | | | MD [address] | | | | | | [place] | | | | | | [place] [address] | | | | | | [phone] | | | | | | | [...] | | | | | | [place] [address] | | | | | | [phone] | | | | | | | | +--------+ + + + + documented as of this encounter Visit Diagnoses Not on filedocumented in this encounter"
--- OUTSIDE RECORDS SUMMARY | ~2020-02-18 | XMS | Encounter Summary ---
Demographics + + + | Address | [address] | | | [place] [address] | + + + | Home Phone [...] Providers + +------+ + | Care Product Promoter Sales Person Name | Role | Phone | + +------+ + | Erika Ernst DO | PCP | | + +------+ + Reason for Visit +--------+ + | Reason | Comments | +--------+ + | Other | questions regarding swelling | +--------+ + Encounter Details +--------+ + + + + | Date | Type | Department | Care Team | Description | +--------+ + + + + | 07/03/ | Telephone | [facility] [facility] | Inocencio Noriega | Other (questions | | 2019 | | HOSPITAL OR[facility]ED[facility] | MD [address] | regarding swelling) | | | | [address] [place] | [address] | | | | | [place], [place] | [place] [address] | | | | | [address] | [phone] | | | | | [phone] | | | +--------+ + + + [...] | | | | | [place] [address] | | | | | | [phone] | | | | | | | | | | | | Julia Fisher, | | | | | | PT | | +--------+ + + + + | 02/18/ | Appointment | Rehabilitation | Erika Ernst, | | | 2019 | | | DO [address] [place] | | | | | | [place] [address] | | | | | | [phone] | | | | | | | | | | | | Genesis Ayon, OT | | +--------+ + + + + | 02/25/ | Office | Primary Care | Erika Ernst, | | | 2019 | Visit | | DO [address] [place] | | | | | | [place] [address] | | | | | | [phone] | | | | | | | [...] | | | | | [place] [address] | | | | | | [phone] | | | | | | | | +--------+ + + + + | 02/27/ | Appointment | Radiology | Dhara, | | | 2019 | | | [address] | | | | | | [address] [facility], | | | | | | [place] [address] | | | | | | [phone] | | | | | | | | +--------+ + + + + | 03/04/ | Appointment | Rehabilitation | Genesis Ayon OT | | 2019 | | | | | +--------+ + + + + | 03/09/ | Office | Orthopedic Surgery | Jeffrey Gandhi, | | | 2019 | Visit | | [address] [facility] | | | | | | [place] [address] | | | | | | [phone] | | | | | | | [...] [place] | | | | | | [address] | | | | | | [phone] | | | | | | | [...] | | | | | [place] [address] | | | | | | [phone] | | | | | | | | | | | | Azul Yeboah, | | | | | | MD [address] | | | | | | [place] | | | | | | [place] [address] | | | | | | [phone] | | | | | | | [...] | | | | | | [place] [address] | | | | | | [phone] | | | | | | | | +--------+ + + + + documented as of this encounter Visit Diagnoses Not on filedocumented in this encounter"
--- OUTSIDE RECORDS SUMMARY | ~2020-02-18 | XMS | Encounter Summary ---
Demographics + + + | Address | [address] | | | [place] [address] | + + + | Home Phone [...] Providers + +------+ + | Care Road Freight Conductor Name | Role | Phone | + +------+ + | Erika Ernst DO | PCP | | + +------+ + Reason for Visit +--------+ + | Reason | Comments | +--------+ + | Asthma | Follow up | +--------+ + Encounter Details +--------+---------+ + + + | Date | Type | Department | Care Team | Description | +--------+---------+ + + + | 07/05/ | Office | [facility] [facility] | Klever Erika Salter, | Asthma due to | | 2018 | Visit | [facility] | DO [address] [place] | environmental | | | | [facility] | [place] [address] | allergies (Primary | | | | [address] [place], | [phone] | Dx); Thyroid cyst | | | | [place] [address] | | | | | | [phone] | | | +--------+---------+ + + + [...] + + + | Blood Pressure | 136/88 | 07/05/2019 8:39 AM | | | | | PDT | | + + + + + | Pulse | 80 | 07/05/2019 8:39 AM | | | | | PDT | | + + + + + | Temperature | - | - | | + + + + + | Respiratory Rate | 18 | 07/05/2019 8:39 AM | | | | | PDT | | + + + + + | Oxygen Saturation | 99% | 07/05/2019 8:39 AM | | | | | PDT | | + + + + + | Inhaled Oxygen | - | - | | | Concentration | | | | + + + + + | Weight | 162.4 kg (358 lb) | 07/05/2019 8:39 AM | | | | | PDT | | + + + + + | Height | 177.8 cm (5' 10") | 07/05/2019 8:39 AM | | | | | PDT | | + + + + + | Body Mass Index | 51.37 | 07/05/2019 8:39 AM | | | | | PDT | | + + + + + documented in this encounter Progress Erika Cespedes DO - 07/05/2019 8:40 AM PDTFormatting of this note might be different fro m the original. Subjective: Patient ID: Andrea Suh is a 29 y.o. female. She had her final allergy testing and brings in the list today of her many environmental al lergies that she tested positive for. She is having increased anxiety about her thyroid US f indings with a cyst found. I have made a referral to Dr Alvarado for this. She has family histor y of thyroid cancer so increases her worry. She did see her therapist, Carlin yesterday. Review of Systems As above Objective: BP 136/88 | Pulse 80 | Resp 18 | Ht 1.778 m (5' 10") | Wt (!) 162.4 kg (358 lb) | SpO2 99% | BMI 51.37 kg/m Physical Exam Constitutional: She is oriented to person, place, and time. She appears well-developed and well-nourished. No distress. HENT: Head: Normocephalic and atraumatic. Mouth/Throat: Oropharynx is clear and moist. Eyes: Pupils are equal, round, and reactive to light. EOM are normal. Right eye exhibits no discharge. Left eye exhibits no discharge. Neck: No thyromegaly present. Cardiovascular: Normal rate, regular rhythm and normal heart sounds. No murmur heard. Pulmonary/Chest: Effort normal and breath sounds normal. No respiratory distress. Neurological: She is alert and oriented to person, place, and time. Skin: Skin is warm and dry. Psychiatric: She has a normal mood and affect. Her behavior is normal. Assessment: 1. Asthma due to environmental allergies 2. Thyroid cyst Plan: Continue plans to see Dr Christiano ALEXANDER for Fu on thyroid cyst. Continue current [place] for asthma. H ad flu and pneumonia vaccines. documented in this en counter Plan of Treatment +--------+ + + + + | Date | Type | Specialty | Care Team | Description | +--------+ + + + + | 02/18/ | Appointment | Rehabilitation | Erika Ernst, | | | 2019 | | | DO [address] | | | | | | [place] [address] | | | | | | [phone] | | | | | | | | | | | | Julia Fisher, | | | | | | PT | | +--------+ + + + + | 02/18/ | Appointment | Rehabilitation | Erika Ernst, | | | 2019 | | | DO [address] [place] | | | | | | [place] [address] | | | | | | [phone] | | | | | | | | | | | | Genesis Ayon OT | | +--------+ + + + + | 02/25/ | Office | Primary Care | Erika Ernst, | | | 2019 | Visit | | DO [address] [place] | | | | | | [place] [address] | | | | | | [phone] | | | | | | | [...] | | | | | [place] [address] | | | | | | [phone] | | | | | | | | +--------+ + + + + | 02/27/ | Appointment | Radiology | Dhara, | | | 2019 | | | [address] | | | | | | [address] [facility], | | | | | | [place] [address] | | | | | | [phone] | | | | | | | | +--------+ + + + + | 03/04/ | Appointment | Rehabilitation | Genesis Ayon OT | | | 2019 | | | | | +--------+ + + + + | 03/09/ | Office | Orthopedic Surgery | Jeffrey Gandhi, | | | 2019 | Visit | | MS [address] [facility] | | | | | | [place] [address] | | | | | | [phone] | | | | | | | [...] [place] | | | | | | [address] | | | | | | [phone] | | | | | | | [...] | | | | | [place] [address] | | | | | | [phone] | | | | | | | | | | | | Azul Yeboah, | | | | | | MD [address] | | | | | | [place] | | | | | | [place] [address] | | | | | | [phone] | | | | | | | | +--------+ + + + + | 04/08/ | Appointment | Nutrition | Janel Webster | | | 2019 | | | [place], [place] | | +--------+ + + + + | 05/21/ | Office | Neurology | Dhara, | | | 2020 | Visit | | Cody [address] | | | | | | [address] [facility] [place], | | | | | | [place] [address] | | | | | | [phone] | | | | | | | | +--------+ + + + + documented as of this encounter Visit Diagnoses + + | Diagnosis | + + | 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
--- OUTSIDE RECORDS SUMMARY | ~2020-02-18 | XMS | Encounter Summary ---
Demographics + + + | Address | [address] | | | [place] [address] | + + + | Home Phone [...] Providers + +------+ + | Care Wire Coiler Machine Operator Name | Role | Phone | + +------+ + | Erika Ernst DO | PCP | | + +------+ + Reason for Visit + + + | Reason | Comments | + + + | Follow-up | L ankle | + + + | Follow-up | Orthotics, Delivered: 02/01/2019 | + + + Encounter Details +--------+---------+ + + + | Date | Type | Department | Care Team | Description | +--------+---------+ + + + | 03/13/ | Office | [facility] | Emily Mittal DPM | Posterior tibial | | 2019 | Visit | [facility] | [address] [place] | tendon dysfunction | | | | [address] | [place], [place] | (PTTD) of left lower | | | | [place], [place] | [address] | extremity (Primary | | | | [address] | | Dx); Hindfoot | | | | [phone] | | pronation of both | | | | | | feet; Radiculopathy | | | | | | with lower extremity | | | | | | symptoms | +--------+---------+ + + + Social History [...] + + + | Blood Pressure | 139/94 | 03/13/2019 9:39 AM | | | | | PDT | | + + + + + | Pulse | 76 | 03/13/2019 9:39 AM | | | | | PDT | | + + + + + | Temperature | - | - | | + + + + + | Respiratory Rate | - | - | | + + + + + | Oxygen Saturation | 98% | 03/13/2019 9:39 AM | | | | | PDT | | + + + + + | Inhaled Oxygen | - | - | | | Concentration | | | | + + + + + | Weight | 171 kg (377 lb) | 03/13/2019 9:39 AM | | | | | PDT | | + + + + + | Height | 177.8 cm (5' 10") | 03/13/2019 9:39 AM | | | | | PDT | | + + + + + | Body Mass Index | 54.09 | 03/13/2019 9:39 AM | | | | | PDT | | + + + + + documented in this encounter Progress Notes Emily Mittal DPM - 03/13/2019 9:30 AM PDT [facility] Note Patient Name: Andrea Suh | Age: 28 y.o. | : 1990 | 369 | Author: Emily Mittal DPM | Date of Encounter: 12/06/2018 Chief complaint Chief Complaint Patient presents with Follow-up L ankle Follow-up Orthotics, Delivered: 02/01/2019 History of Present Illness Andrea Suh is a 28 y.o. female that presents to my office for evaluation of her orthotics . She states she wears them most days and the left one is very comfortable denies any pain with it but states that she is having pain to her posterior tibial insertion due to her righ t orthotic. She does relate a history of a Kidner procedure. She also states that the shoo ting pain she was having up and down her legs are completely resolved at this visit. She be jules seeing a chiropractor who has been doing adjustments for her and completely relieved the shooting and tingling pain she is having. She never received the EMG/NCV due to her majora 's claim because she was seeing Dr. Alvarez although she is seeing Dr. Nichole for concussion. In a ddition the patient has been using Voltaren gel and relates a reduction in symptoms with its use and so is requesting a refill. The patient was casted for orthotics on December 11, 2018 and there were delivered on February 01. Allergies Latex; Lexapro [escitalopram]; Oxycodone; Deblitane [norethindrone]; Hydrocodone; Uncoded n onscreenable allergen; and Adhesive & tape Vitals BP (!) 139/94 | Pulse 76 | Resp Temp | Wt (!) 171 kg (377 lb) | BMI Body mass index is 54.09 kg/m. Physical Exam On physical exam today the patient is alert and oriented and has age-appropriate affect. S he is seated comfortably in the exam chair. Negative paresthesias, negative Tinel's. Mild tenderness palpation of the posterior tibial tendon insertion of the right foot. Assessment ICD-10-CM ICD-9-CM 1. Posterior tibial tendon dysfunction (PTTD) of left lower extremity M76.822 734 2. Hindfoot pronation of both feet M21.6X1 736.79 M21.6X2 3. Radiculopathy with lower extremity symptoms M54.10 724.4 Treatment and Plan of Care In light of the absence of previous lower extremity neurological type symptoms we will hold off on the EMG/NCV for now. The patient is requesting a note to return to work for full du ty which we gave her today. I like her to continue with the use of the orthotics and we shirley l contact [facility] to make an appointment for her to see Rei the cotton ginner helper to make adjustments to the right orthotic. Recommend once again weight loss. Orthotic devices were checked against the patients foot at this visit. Pt with no excoriations or markings. Patients shoegear was assessed and noted to fit well and proper for the patients condition. The patient was then consulted for 15 minutes discussing the results thus far with treatmen t as well as the objectives and future goals with treatment including treatment times and mi lestones to be reached with regards to future treatment. All of the patient's questions were entertained and answered at this time to the family and patient satisfaction. In addition, it was explained that the benefits of the orthoses will be apparent if worn re gularly. Advised if discomfort with the orthoses to remove from shoe for one hour and repla ce them in the shoe. Also suggested placing insole over the orthoses if shoe will allow it. The patient proceeded to leave the office with vital signs stable and neurovascular status intact. Rx: Voltaren gel 1% to be applied to 4 times daily when necessary pain Return to the office 3 months or when necessary Active Problems, Medical and Surgical Histories Patient [...] ligament of left ankle Painful menstrual periods Chronic pain of both ears Chronic congestion of paranasal sinus Insomnia due to other mental disorder Non-seasonal allergic rhinitis due to pollen Nasal obstruction Deviated nasal septum History of falling Post-traumatic brain syndrome Past Medical History: Diagnosis Date Allergic rhinitis Anemia Asthma Dysmenorrhea Hypertension Hypothyroid Iron deficiency Obesity ALVAREZ (obstructive sleep apnea) Periodontal disease, unspecified TMJ pain dysfunction syndrome Past Surgical History: Procedure Laterality Date EYE SURGERY RIGHT KIDNER PROCEDURE 01/20/2016 Surgeon: Fani Mahajan MD; Location: [facility] TENDON RELEASE TONSILLECTOMY WISDOM TOOTH EXTRACTION Family History Problem Relation Age of Onset Other (see comment) Mother gallbladder disease Hypertension Father Other (see comment) Father arrhymthmia Breast cancer Sister Cervical cancer Maternal Grandmother Heart attack Maternal Aunt [place] Social History Socioeconomic History Marital status: Single [...] and their vital signs recorded by my assistant boys track coach today, a s found in this chart note. Electronically signed by: Emily Mittal DPM 12/06/2018 at 9:59 Note: Part of this report was transcribed using voice recognition software. Every effort wa s made to ensure accuracy. However, inadvertent computerized telephone sterilizer errors may be pre sent. CC: Erika [...] | | | | | [place] [address] | | | | | | [phone] | | | | | | | | | | | | Julia Fisher, | | | | | | PT | | +--------+ + + + + | 02/18/ | Appointment | Rehabilitation | Erika Ernst, | | | 2019 | | | DO [address] [place] | | | | | | [place] [address] | | | | | | [phone] | | | | | | | | | | | | Genesis Ayon, OT | | +--------+ + + + + | 02/25/ | Office | Primary Care | Erika Ernst, | | | 2019 | Visit | | DO [address] [place] | | | | | | [place] [address] | | | | | | [phone] | | | | | | | [...] | | | | | [place] [address] | | | | | | [phone] | | | | | | | | +--------+ + + + + | 02/27/ | Appointment | Radiology | Dhara, | | 2019 | | | DWAINE Ross [address] | | | | [address] [place], | | | | | | [place] [address] | | | | | | [phone] | | | | | | | [...] ST | | | | | | [place] [address] | | | | | | [phone] | | | | | | | [...] | | | | [address] [place] | | | | | | [place], [place] | | | | | | [address] | | | | | | [phone] | | | | | | | [...] | | | | | [place] [address] | | | | | | [phone] | | | | | | | | | | | | Azul Yeboah, | | | | | | [address] | | | | | | [place] | | | | | | [place] [address] | | | | | | [phone] | | | | | | | [...] | | | | | | [place] [address] | | | | | | [phone] | | | | | | | | +--------+ + + + + documented as of this encounter Visit Diagnoses + + | Diagnosis | + + | Posterior tibial tendon dysfunction (PTTD) of left lower extremity - Primary | + + | Hindfoot pronation of both feet | + + | Radiculopathy with lower extremity symptoms | + + documented in this encounter
--- OUTSIDE RECORDS SUMMARY | ~2020-02-18 | XMS | Encounter Summary ---
Demographics + + + | Address | [address] | | | [place] [address] | + + + | Home Phone [...] Team Providers + +------+ + | Care Long Term Care Social Worker Name | Role | Phone | + +------+ + PCP | Unavailable | + +------+ + Encounter Details +--------+ + + + + | Date | Type | Department | Care Team | Description | +--------+ + + + + | 06/30/ | [facility] | Denise Mcgregor | | | 2017 | Encounter | [facility] | KAREN Kent | | | | | [address] | | | | | | [place] | | | | | | [address] | | | | | | [phone] | | | +--------+ + + + [...] | | | | | [place] [address] | | | | | | [phone] | | | | | | | | | | | | Julia Fisher, | | | | | | PT | | +--------+ + + + + | 02/18/ | Appointment | Rehabilitation | Erika Ernst, | | | 2019 | | | DO [address] [place] | | | | | | [place] [address] | | | | | | [phone] | | | | | | | | | | | | Genesis Ayon OT | | +--------+ + + + + | 02/25/ | Office | Primary Care | Erika Ernst, | | | 2019 | Visit | | DO [address] [place] | | | | | | [place] [address] | | | | | | [phone] | | | | | | | [...] | | | | | [place] [address] | | | | | | [phone] | | | | | | | | +--------+ + + + + | 02/27/ | Appointment | Radiology | Dhara, | | | 2019 | | | DWAINE Ross [address] [place], | | | | | | [place] [address] | | | | | | [phone] | | | | | | | | +--------+ + + + + | 03/04/ | Appointment | Rehabilitation | Genesis Ayon OT | | | 2019 | | | | | +--------+ + + + + | 03/09/ | Office | Orthopedic Surgery | Jeffrey Gandhi, | | | 2019 | Visit | | [place] [address] | | | | | | [place] [address] | | | | | | [phone] | | | | | | | [...] [place] | | | | | | [address] | | | | | | [phone] | | | | | | | [...] | | | | | [place] [address] | | | | | | [phone] | | | | | | | | | | | | Azul Yeboah, | | | | | | MD [address] | | | | | | [place] | | | | | | [place] [address] | | | | | | [phone] | | | | | | | [...] | | | | | | [place] [address] | | | | | | [phone] | | | | | | | [...]
--- OUTSIDE RECORDS SUMMARY | ~2020-02-18 | XMS | Encounter Summary ---
Demographics + + + | Address | [address] | | | [place] [address] | + + + | Home Phone [...] Team Providers + +------+ + | Care Bindery Supervisor Name | Role | Phone | + +------+ + PCP | Unavailable | + +------+ + Encounter Details +--------+ + + + + | Date | Type | Department | Care Team | Description | +--------+ + + + + | 02/18/ | [facility] | Megan Duffy | | | 2015 | Encounter | [facility] | MCKENZIE Gale [address] | | | | | CENTER [address] | [address] [place], | | | | | [address] [place], [place] | [place] [address] | | | | | [address] | [phone] | | | | | [phone] | | | +--------+ + + + [...] | | | | | [place] [address] | | | | | | [phone] | | | | | | | | | | | | Julia Fisher, | | | | | | PT | | +--------+ + + + + | 02/18/ | Appointment | Rehabilitation | Erika Ernst, | | | 2019 | | | DO [address] [place] | | | | | | [place] [address] | | | | | | [phone] | | | | | | | | | | | | Genesis Ayon, SUSAN | | +--------+ + + + + | 02/25/ | Office | Primary Care | Erika Ernst, | | | 2019 | Visit | | DO [address] [place] | | | | | | [place] [address] | | | | | | [phone] | | | | | | | [...] | | | | | [place] [address] | | | | | | [phone] | | | | | | | | +--------+ + + + + | 02/27/ | Appointment | Radiology | Dhara, | | | 2019 | | | DWAINE [address] | | | | | | [address] [facility], | | | | | | [place] [address] | | | | | | [phone] | | | | | | | | +--------+ + + + + | 03/04/ | Appointment | Rehabilitation | Genesis Ayon OT | | | 2019 | | | | | +--------+ + + + + | 03/09/ | Office | Orthopedic Surgery | Jeffrey Gandhi, | | | 2019 | Visit | | [address] [facility] | | | | | | [place] [address] | | | | | | [phone] | | | | | | | [...] [place] | | | | | | [address] | | | | | | [phone] | | | | | | | [...] | | | | | [place] [address] | | | | | | [phone] | | | | | | | | | | | | Azul Yeboah, | | | | | | MD [address] | | | | | | [place] | | | | | | [place] [address] | | | | | | [phone] | | | | | | | | +--------+ + + + + | 04/08/ | Appointment | Nutrition | Janel Webster | | | 2019 | | | [place], [place] | | +--------+ + + + + | 05/21/ | Office | Neurology | Dhara, | | | 2019 | Visit | | Cody, MERCHANDISING EXECUTION ASSOCIATE [address] | | | | [address] [facility], | | | | | | [place] [address] | | | | | | [phone] | | | | | | | | +--------+ + + + + documented as of this encounter Procedures + +--------+ + + + | Procedure Name | Priori | Date/Time | Associated Diagnosis | Comments | | | ty | | | | + +--------+ + + + | XR CHEST 2 VIEWS | Routin | 02/18/2015 | | Results for this | | | e | 6:59 PM | | procedure are in the | | | | PDT | | results section. | + +--------+ + + + documented in this encounter Results XR Chest 2 VW (02/18/2015 6:59 PM PDT) + + | Specimen | + + | | + + + + + | Narrative | Performed At | + + + | ORIGINAL CHEST TWO-VIEW: INDICATION: Cough, | | | fever, diagnosed with early pneumonia 1-2 weeks ago. COMPARISON: | | | Chest 01/30/15. REPORT: No lobar consolidation is seen. No | | | pleural effusion is identified. Heart size is normal. No acute | | | bony findings are demonstrated. IMPRESSION: No definite acute | | | finding identified. Read By: | | | ANJELICA CHAMBERS MD Released By: ANJELICA CHAMBERS MD Date: | | | 02/19/2015 21:57 | | + + + + + | Procedure Note | + + | Mitchel, Rad Results In - 08/09/2017 7:21 PM PST ORIGINAL CHEST TWO-VIEW: | | INDICATION:Cough, fever, diagnosed with early pneumonia 1-2 weeks ago. COMPARISON:Chest | | 01/30/15. REPORT:No lobar consolidation is seen. No pleural effusion is identified. | | Heart size is normal. No acute bony findings are demonstrated. IMPRESSION:No definite | | acute finding identified. Job#: [id number] Read By: ANJELICA CHAMBERS MD | | Released By: ANJELICA CHAMBERS, MDDate: 02/19/2015 21:57 | |INDICATION: | |Cough, fever, diagnosed with early pneumonia 1-2 weeks ago. | | | |COMPARISON: | |Chest 01/30/15. | | | |REPORT: | |No lobar consolidation is seen. No pleural effusion is identified. Heart size is normal. No acute bony findings are demonstrated. | | | |IMPRESSION: | |No definite acute finding identified. | | | | | | | | | |Read By: ANJELICA CHAMBERS MD | | | |Released By: ANJELICA CHAMBERS MD | |Date: 02/19/2015 21:57 | | | | | + + documented in this encounter Visit Diagnoses Not on filedocumented in this encounter"
--- OUTSIDE RECORDS SUMMARY | ~2020-02-18 | XMS | Encounter Summary ---
Demographics + + + | Address | [address] | | | [place] [address] | + + + | Home Phone [...] Team Providers + +------+ + | Care Sulfuric Acid Plant Supervisor Name | Role | Phone | [...] | 2018 | | HOSPITAL EM[facility]Y | AIR QUALITY SPECIALIST [address] | environmental | | | | CENTER [address] | [place] [address] | allergies (Primary | | | | [place], [place] | [phone] | Dx); Moderate | | | | [address] | | asthma, unspecified | | | | [phone] | | whether complicated, | | | [...] sent through Care Everywhere.Asthma, Control ling Your (Chinese)Allergic Rhinitis (Chinese)Anxiety Disorders, Understanding (Chinese)docu mented in this encounter Medications at Time [...] | 04/12/20 | | | (VITAMIN D3) [address] | mouth Once a week | tablet [...] | | | | | [place] [address] | | | | | | [phone] | | | | | | | | | | | | Julia Fisher, | | | | | | PT | | +--------+ + + + + | 02/18/ | Appointment | Rehabilitation | Erika Ernst, | | | 2019 | | | DO [address] [place] | | | | | | [place] [address] | | | | | | [phone] | | | | | | | | | | | | Genesis Ayon OT | | +--------+ + + + + | 02/25/ | Office | Primary Care | Erika Ernst, | | | 2019 | Visit | | DO [address] [place] | | | | | | [place] [address] | | | | | | [phone] | | | | | | | [...] | | | | | [place] [address] | | | | | | [phone] | | | | | | | | +--------+ + + + + | 02/27/ | Appointment | Radiology | Dhara, | | | 2019 | | | DWAINE Ross [address] [place], | | | | | | [place] [address] | | | | | | [phone] | | | | | | | | +--------+ + + + + | 03/04/ | Appointment | Rehabilitation | Genesis Ayon OT | | | 2019 | | | | | +--------+ + + + + | 03/09/ | Office | Orthopedic Surgery | Jeffrey Gandhi, | | | 2019 | Visit | | [address] | | | | | | [place] [address] | | | | | | [phone] | | | | | | | [...] [place] | | | | | | [address] | | | | | | [phone] | | | | | | | [...] | | | | | [place] [address] | | | | | | [phone] | | | | | | | | | | | | Azul Yeboah, | | | | | | MD [address] | | | | | | [place] | | | | | | [place] [address] | | | | | | [phone] | | | | | | | [...] | | | | | | [place] [address] | | | | | | [phone] | | | | | | | [...] C?MRN: | | | | | | [id number] | | | [id number] | | | riteri | | | [...] | | | St. | | | [place] | | | y | | | [...] | | | St. | | | [place] | | | y H. | | [...] | | | ent/e5 | | | [id number] | | | -[id number]- | | | [id number] | | | [id number] | | | [id number] | | | [phone] | | | [...]
--- OUTSIDE RECORDS SUMMARY | ~2020-02-18 | XMS | Encounter Summary ---
Demographics + + + | Address | [address] | | | [place] [address] | + + + | Home Phone [...] Team Providers + +------+ + | Care Safety Grooving Machine Operator Name | Role | Phone [...] | Encounter | HOSPITAL XRAY 900 | AUDIO VISUAL AIDE [address] [facility] | | | | | [address] [place] | [place] [address] | | | | | [place], [place] | [phone] | | | | | [address] | | | | | | [phone] | | | +--------+ + + + [...] | 19 | 9 | | [facility] [place]) | | | | | | | [...] | | | | | [place] [address] | | | | | | [phone] | | | | | | | | | | | | Julia Fisher, | | | | | | PT | | +--------+ + + + + | 02/18/ | Appointment | Rehabilitation | Erika Ernst, | | | 2019 | | | DO [address] [place] | | | | | | [place] [address] | | | | | | [phone] | | | | | | | | | | | | Genesis Ayon, SUSAN | | +--------+ + + + + | 02/25/ | Office | Primary Care | Erika Ernst, | | | 2019 | Visit | | DO [address] [place] [address] | | | | | | [place] [address] | | | | | | [phone] | | | | | | | [...] | | | | | [place] [address] | | | | | | [phone] | | | | | | | | +--------+ + + + + | 02/27/ | Appointment | Radiology | Dhara, | | | 2019 | | | DWAINE Ross [address] [place], | | | | | | [place] [address] | | | | | | [phone] | | | | | | | | +--------+ + + + + | 03/04/ | Appointment | Rehabilitation | Genesis Ayon OT | | | 2019 | | | | | +--------+ + + + + | 03/09/ | Office | Orthopedic Surgery | Jeffrey Gadnhi, | | | 2019 | Visit | | [address] | | | | | | [facility] [place] [address] | | | | | | [phone] | | | | | | | [...] [place] | | | | | | [address] | | | | | | [phone] | | | | | | | [...] | | | | | [place] [address] | | | | | | [phone] | | | | | | | | | | | | Azul Yeboah, | | | | | | [address] | | | | | | [place] | | | | | | [place] [address] | | | | | | [phone] | | | | | | | | +--------+ + + + + | 04/08/ | Appointment | Nutrition | Janel Wbester | | | 2019 | | | [address], [address] | | +--------+ + + + + | 05/21/ | Office | Neurology | Dhara, | | | 2019 | Visit | | DWAINE Ross [address] [place], | | | | | | [place] [address] | | | | | | [phone] | | | | | | | [...]
--- OUTSIDE RECORDS SUMMARY | ~2020-02-18 | XMS | Encounter Summary ---
Demographics + + + | Address | [address] | | | [place] [address] | + + + | Home Phone [...] Team Providers + +------+ + | Care Crystalizer Tender Name | Role | Phone | [...] | | | of left | [place] [address] | [place] [address] | | | | | ankle, | Phone: | Phone: | | | | | initial | [phone] | [phone] | | | | | encounter | Fax: | Fax: | | | | | Procedures | [phone] | [phone] | | | | | PT TREAT | | | +--------+--------+ + + + + Encounter Details +--------+ + + + + | Date | Type | Department | Care Team | Description | +--------+ + + + + | 09/18/ | Hospital | [facility] | Erika Ernst, | Sprain of left | | 2018 | Encounter | HOSPITAL THERAPY PT | DO [address] | ankle, subsequent | | | | [address] [place] | [place] [address] | encounter (Primary | | | | [place], [place] | [phone] | Dx); Fall on same | | | | [address] | | level from slipping, | | | | [phone] | Julia Castillo | subsequent | | [...] as of this encounter Progress Notes Julia Castillo, PT - 09/18/2018 1:43 PM PSTFormatting of this note might be differen t from the original. [facility] THERAPY PT [address] [place] [address] Physical Therapy Daily Treatment Note Date: 09/18/2018 Patient Information Patient Name: Andrea Suh Date of : 1990 Age: 28 y.o. Encounter Diagnoses Code Name Primary? S93.402D Sprain of left ankle, subsequent encounter Yes W01.0XXD Fall on same level from slipping, subsequent encounter Date of Onset: 06/11/2018 Referring Provider: Erika Ernst DO Objective Pain Assessment: Pain Rating Pre Assessment: 3 Pain Rating Post Assessment: 3 Location: left medial ankle Standardized Tests: Lower Extremity Functional Scale (LEFS) Lower Extremity Functional Scale Goal: 75 Today's Treatment Patient Name: Andrea Suh/: 1990/ Start Time: 1100 Stop time: 1130 Duration: 30 minutes Timed Treatment Codes: 30 minutes # of PT Visits to Date: 14 Visit Summary: S: Pt states that her walking tolerance has increased. Has most problems o n inclines now. A: Pt had no increase in pain with any of the aquatic exercises. Was able to move away from the wall some demonstrating improving balance and stability. Next Visit Information: Progress LE strength and balance exercises with steps, bosu, bridge progression, quantum, leg press, lunges. Progress aquatic exercise as tolerated. Patient/Caregiver Education Learner: Patient Readiness: Acceptance Method: Explanation, Demonstration Response: Verbalizes Understanding, Demonstrated Understanding, Needs Reinforcement Comment: aquatic exercise Aquatic Basic Exercise Program Walkin minutes Depth: chest Type of Walking: forward, backward, side step (increased velocity) Stretches: calf Aerobics Aerobic Exercise: LE Exercise LE Exercise - Level of Assistance: light touch at rail (progressing to free standing) LE Exercise Comments: ankle PF/DF, ankle circles, heel raises: double and single, hip abd/a dd, hip flex/ext, squats (in shallow end), SLS w/ and w/o perterbations, march/balance acros s pool, bicycling with noodle under arms Assessment Rehabilitation potential: Patient demonstrates good potential [...] rated at 3/10 today Electronically signed by: Julia Castillo, PT, 09/18/2018 13:43 Patient Name: Andrea King Angeli/: 1990/ documented in th is encounter Plan of Treatment +--------+ + + + + | Date | Type | Specialty | Care Team | Description | +--------+ + + + + | 02/18/ | Appointment | Rehabilitation | Erika Ernst, | | | 2019 | | | DO [address] | | | | | | [place] [address] | | | | | | [phone] | | | | | | | | | | | | Julia Fisher, | | | | | | PT | | +--------+ + + + + | 02/18/ | Appointment | Rehabilitation | Erika Ernst, | | | 2019 | | | DO [address] | | | | | | [place] [address] | | | | | | [phone] | | | | | | | | | | | | Genesis Ayon OT | | +--------+ + + + + | 02/25/ | Office | Primary Care | Erika Ernst, | | | 2019 | Visit | | DO [address] | | | | | | [place] [address] | | | | | | [phone] | | | | | | | [...] | | | | | [place] [address] | | | | | | [phone] | | | | | | | | +--------+ + + + + | 02/27/ | Appointment | Radiology | Dhara, | | | 2019 | | | [address]WAINE Ross [address] | | | | | | [address]TH [facility], | | | | | | [place] [address] | | | | | | [phone] | | | | | | | [...] [place] | | | | | | [place] [address] | | | | | | [phone] | | | | | | | [...] [place] | | | | | | [address] | | | | | | [phone] | | | | | | | [...] | | | | | [place] [address] | | | | | | [phone] | | | | | | | | | | | | Azul Yeboah, | | | | | | MD [address] | | | | | | [place] | | | | | | [place] [address] | | | | | | [phone] | | | | | | | [...] | | | | | [address] [place], | | | | | | [place] [address] | | | | | | [phone] | | | | | | | | +--------+ + + + + documented as of this encounter Visit Diagnoses + + | Diagnosis | + + | Sprain of left ankle, subsequent encounter - Primary | + + | Fall on same level from slipping, subsequent encounter | + + documented in this encounter"
--- OUTSIDE RECORDS SUMMARY | ~2020-02-18 | XMS | Encounter Summary ---
Demographics + + + | Address | [address] | | | [place] [address] | + + + | Home Phone [...] Providers + +------+ + | Care Oil Well Shooter Name | Role | Phone | + [...] Paperwork | | 2018 | | [facility] | DO [address] | | | | | MEDICAL CL[facility] [address] | [place] [address] | | | | [address] [place], | [phone] | | | | | [place] [address] | | | | | | [phone] | | | +--------+ + + + [...] | | 2019 | | | DO [place] | | | | | | [place] [address] | | | | | | [phone] | | | | | | | | | | | | Julia Fisher, | | | | | | PT | | +--------+ + + + + | 02/18/ | Appointment | Rehabilitation | Erika Ernst, | | | 2019 | | | DO [address] | | | | | | [place] [address] | | | | | | [phone] | | | | | | | | | | | | Genesis Ayon OT | | +--------+ + + + + | 02/25/ | Office | Primary Care | Erika Ernst, | | | 2019 | Visit | | DO [address] | | | | | | [place] [address] | | | | | | [phone] | | | | | | | [...] | | | | | [place] [address] | | | | | | [phone] | | | | | | | | +--------+ + + + + | 02/27/ | Appointment | Radiology | Dhara, | | | 2019 | | | DWAINE Ross [address] | | | | | | [address] [facility] [place], | | | | | | [place] [address] | | | | | | [phone] | | | | | | | [...] | | | | | [place] [address] | | | | | | [phone] | | | | | | | [...] [place] | | | | | | [address] | | | | | | [phone] | | | | | | | [...] | | | | | [place] [address] | | | | | | [phone] | | | | | | | | | | | | Azul Yeboah, | | | | | | MD [address] | | | | | | [place] | | | | | | [place] [address] | | | | | | [phone] | | | | | | | [...] | | | | | | [place] [address] | | | | | | [phone] | | | | | | | | +--------+ + + + + documented as of this encounter Visit Diagnoses Not on filedocumented in this encounter"
--- OUTSIDE RECORDS SUMMARY | ~2020-02-18 | XMS | Encounter Summary ---
Demographics + + + | Address | [address] | | | [place] [address] | + + + | Home Phone [...] Team Providers + +------+ + | Care Glass Sander Name | Role | Phone | + [...] Imaging | | 2019 | | [facility] | PROGRAM MANAGEMENT PROFESSIONAL | | | | | MEDICAL CLIN[facility] [address] | | | | | | [address]TH [facility] [place], | | | | | | [place] [address] | | | | | | [phone] | | | +--------+ + + + [...] | | | | | [place] [address] | | | | | | [phone] | | | | | | | | | | | | Julia Fisher, | | | | | | PT | | +--------+ + + + + | 02/18/ | Appointment | Rehabilitation | Erika Ernst, | | | 2019 | | | DO [address] | | | | | | [place] [address] | | | | | | [phone] | | | | | | | | | | | | Genesis Ayon OT | | +--------+ + + + + | 02/25/ | Office | Primary Care | Erika Ernst, | | | 2019 | Visit | | DO [address] | | | | | | [place] [address] | | | | | | [phone] | | | | | | | [...] | | | | | [place] [address] | | | | | | [phone] | | | | | | | | +--------+ + + + + | 02/27/ | Appointment | Radiology | Dhara, | | | 2019 | | | DWA[address] Ross [address] | | | | | [address] [place], | | | | | | [place] [address] | | | | | | [phone] | | | | | | | [...] | | | | | [place] [address] | | | | | | [phone] | | | | | | | [...] [place] | | | | | | [address] | | | | | | [phone] | | | | | | | [...] | | | | | [place] [address] | | | | | | [phone] | | | | | | | | | | | | Azul Yeboah, | | | | | | [address] | | | | | | [place] | | | | | | [place] [address] | | | | | | [phone] | | | | | | | [...] | | | | | | [place] [address] | | | | | | [phone] | | | | | | | | +--------+ + + + + documented as of this encounter Visit Diagnoses Not on filedocumented in this encounter"
--- OUTSIDE RECORDS SUMMARY | ~2020-02-18 | XMS | Encounter Summary ---
Demographics + + + | Address | [address] | | | [place] [address] | + + + | Home Phone [...] Providers + +------+ + | Care Assistant Pastry Chef Name | Role | Phone | + [...] | | | of left | [place] [address] | [place] [address] | | | | | ankle, | Phone: | Phone: | | | | | initial | [phone] | [phone] | | | | | encounter | Fax: | Fax: | | | | | Procedures | [phone] | [phone] | | | | | PT EVAL AND | | | | | | | TREAT | | | +--------+ + + + + + Encounter Details +--------+ + + + + | Date | Type | Department | Care Team | Description | +--------+ + + + + | 07/10/ | Hospital | [facility] | Erika Ernst, | Sprain of | | 2018 | Encounter | HOSPITAL THERAPY PT | DO [address] | calcaneofibular | | | | [address] | [place] [address] | ligament of left | | | | [place], [place] | [phone] | ankle, initial | | | | [address] | | encounter | | | | [phone] | Nick Barrios I, PT | | [...] Progress Notes Nick Barrios I, PT - 07/10/2018 5:01 PM PDTFormatting of this note might be different hannah tan the original. [facility] THERAPY PT [address] [place] [address] Physical Therapy Daily Treatment Note Date: 07/10/2018 Patient Information Patient Name: Andrea Suh Date of : 1990 Age: 28 y.o. Encounter Diagnoses Code Name Primary? S93.412A Sprain of calcaneofibular ligament of left ankle, initial encounter Date of Onset: 06/11/2018 Referring Provider: Erika Ernst DO Objective Pain Assessment: Pain Rating Pre Assessment: 3 Pain Rating Post Assessment: 3 Location: L lateral ankle Today's Treatment Patient Name: Andrea Suh/: 1990/ Start Time: 1600 Stop time: 164 Duration: 47 minutes Timed Treatment Codes: 47 minutes # of PT Visits to Date: 2 Visit Summary: S: Patient states that she feels okay today with L lateral ankle pain of 3/1 0. She has been noticing "popping" sounds when performing ankle [place] exercises at home. Sh e felt fine after last session and has been compliant with HEP. A: Tolerated ROM and BAPS coco trista exercises well. Continues to demonstrate mild swelling on L ankle, no pain reported upon palpation during STM, but did report soreness in L lateral leg muscles. Unable to tolerate eversion/inversion PRE with yellow theraband due to discomfort. Physical therapy remains nec essary in order to improve L ankle ROM and strength. Next Visit Information: progress ankle ROM exercises, assess tolerance to 4 way yellow TB P RE, initiate step up exercises, stance on foam pad, maybe heel raises on leg press. Therapy Interventions HEP: NEW: Ankle inversion/eversion 3x10 progressing to 20 1x/day // ankle ABC's 3x/day. MARISA OING: Ankle pumps 3x10 progressing to 20 repetitions 1x/day // ankle circles 3x10 progressin g to 20 repetitions each direction 1x/day PT Interventions: Manual Therapy Intervention #1 PT INTERVENTION 1: TE - (35 minutes) Ankle eversion/inversion 2x10 // PRE L ankle dorsiflex ion/plantarflexion 2x10 each direction // Ankle ABC's x2 // Seated BAPS board exercises: inés cks 2x10 each direction L1, 1x10 each direction L3; Plantarflexion/dorsiflexion 2x10 L3; Sabrina rsion/inversion 1x10 L1, L2, and L3 // Ankle pumps 2x10 // ankle circles 2x10 each direction // additional time required for patient education regarding plan of care going forward, pur pose of exercises, and correct exercise form. PT MANUAL THERAPY 1: STM - (12 minutes) Applied to lateral and medial L ankle as well as L calf and peroneal muscles. Assessment Rehabilitation potential: Patient demonstrates good potential [...] with physical therapy. Goal 1 Status: Ongoing; compliant with HEP at this point. Goal 2: Patient will improve L ankle [...] today Electronically signed by: Nick Barrios PT, 07/10/2018 17:02 Patient Name: Andrea Suh/: 1990/ documented in [...] | | | | | [place] [address] | | | | | | [phone] | | | | | | | | | | | | Julia Fisher, | | | | | | PT | | +--------+ + + + + | 02/18/ | Appointment | Rehabilitation | Erika Ernst, | | | 2019 | | | DO [address] | | | | | | [place] [address] | | | | | | [phone] | | | | | | | | | | | | Genesis Ayon, OT | | +--------+ + + + + | 02/25/ | Office | Primary Care | Erika Ernst, | | | 2019 | Visit | | DO [address] | | | | | | [place] [address] | | | | | | [phone] | | | | | | | [...] | | | | | [place] [address] | | | | | | [phone] | | | | | | | | +--------+ + + + + | 02/27/ | Appointment | Radiology | Dhara, | | | 2019 | | | [address] | | | | | | 4TH [facility], | | | | | | [place] [address] | | | | | | [phone] | | | | | | | | +--------+ + + + + | 03/04/ | Appointment | Rehabilitation | Genesis Ayon OT | | | 2019 | | | | | +--------+ + + + + | 03/09/ | Office | Orthopedic Surgery | Jeffrey Gandhi, | | | 2019 | Visit | | [address] [facility] | | | | | | [place] [address] | | | | | | [phone] | | | | | | | [...] [place] | | | | | | [address] | | | | | | [phone] | | | | | | | [...] | | | | | [place] [address] | | | | | | [phone] | | | | | | | | | | | | Azul Yeboah, | | | | | | MD [address] | | | | | | [place] | | | | | | [place] [address] | | | | | | [phone] | | | | | | | [...] | | | | | | [place] [address] | | | | | | [phone] | | | | | | | | +--------+ + + + + documented as of this encounter Visit Diagnoses + + | Diagnosis | + + | Sprain of calcaneofibular ligament of left ankle, initial encounter | + + documented in this encounter
--- OUTSIDE RECORDS SUMMARY | ~2020-02-18 | XMS | Encounter Summary ---
Demographics + + + | Address | [address] | | | [place] [address] | + + + | Home Phone [...] Team Providers + +------+ + | Care Bottom Finisher Name | Role | Phone | [...] 12/28/ | Telephone | [facility] [facility] | KleverErika epps, | Other (FYI) | | 2020 | | [facility] | DO [address] | | | | | MEDICAL CLIN[facility] [address] | [place] [address] | | | | | [address] [place], | [phone] | | | | | [place] [address] | | | | | | [phone] | | | +--------+ + + + [...] | | | | | [place] [address] | | | | | | [phone] | | | | | | | | | | | | Julia Fisher, | | | | | | PT | | +--------+ + + + + | 02/18/ | Appointment | Rehabilitation | Erika Ernst, | | | 2019 | | | DO [address] | | | | | | [place] [address] | | | | | | [phone] | | | | | | | | | | | | Genesis Ayon OT | | +--------+ + + + + | 02/25/ | Office | Primary Care | Erika Ernst, | | | 2019 | Visit | | DO [address] | | | | | | [place] [address] | | | | | | [phone] | | | | | | | [...] | | | | | | [place] [address] | | | | | | [phone] | | | | | | | | +--------+ + + + + | 02/27/ | Appointment | Radiology | Dhara, | | | 2019 | | | [address] | | | | | | 4TH [facility], | | | | | | [place] [address] | | | | | | [phone] | | | | | | | | +--------+ + + + + | 03/04/ | Appointment | Rehabilitation | Genesis Ayon OT | | | 2019 | | | | | +--------+ + + + + | 03/09/ | Office | Orthopedic Surgery | Jeffrey Gandhi, | | | 2019 | Visit | | [address] | | | | | | [place] [address] | | | | | | [phone] | | | | | | | [...] [place] | | | | | | [address] | | | | | | [phone] | | | | | | | [...] | | | | | [place] [address] | | | | | | [phone] | | | | | | | | | | | | Azul Yeboah, | | | | | | [address] | | | | | | [place] | | | | | | [place] [address] | | | | | | [phone] | | | | | | | [...] | | | | | | [place] [address] | | | | | | [phone] | | | | | | | | +--------+ + + + + documented as of this encounter Visit Diagnoses Not on filedocumented in this encounter"
--- OUTSIDE RECORDS SUMMARY | ~2020-02-18 | XMS | Encounter Summary ---
Demographics + + + | Address | [address] | | | [place] [address] | + + + | Home Phone [...] Team Providers + +------+ + | Care Tester Rocket Engine Name | Role | Phone | + [...] | | [place], [place] | [place] [address] | | | | | [address] | [phone] | | | | | [phone] | | | +--------+ + + + [...] | | | | | [place] [address] | | | | | | [phone] | | | | | | | | | | | | Julia Fisher, | | | | | | PT | | +--------+ + + + + | 02/18/ | Appointment | Rehabilitation | Erika Ernst, | | | 2019 | | | DO [address] | | | | | | [place] [address] | | | | | | [phone] | | | | | | | | | | | | Genesis Ayon, SUSAN | | +--------+ + + + + | 02/25/ | Office | Primary Care | Erika Ernst, | | | 2019 | Visit | | DO [address] | | | | | | [place] [address] | | | | | | [phone] | | | | | | | [...] | | | | | | [place] [address] | | | | | | [phone] | | | | | | | | +--------+ + + + + | 02/27/ | Appointment | Radiology | Dhara, | | | 2019 | | | [address]WA[address] | | | | | | [address] [facility], | | | | | | [place] [address] | | | | | | [phone] | | | | | | | | +--------+ + + + + | 03/04/ | Appointment | Rehabilitation | Genesis Ayon OT | | | 2019 | | | | | +--------+ + + + + | 03/09/ | Office | Orthopedic Surgery | Jeffrey Gandhi, | | | 2019 | Visit | | [address] [facility] | | | | | | [place] [address] | | | | | | [phone] | | | | | | | [...] [place] | | | | | | [address] | | | | | | [phone] | | | | | | | [...] | | | | | [place] [address] | | | | | | [phone] | | | | | | | | | | | | Azul Yeboah, | | | | | | MD [address] | | | | | | [place] | | | | | | [place] [address] | | | | | | [phone] | | | | | | | | +--------+ + + + + | 04/08/ | Appointment | Nutrition | Janel Webster | | | 2019 | | | [place], [place] | | +--------+ + + + + | 05/21/ | Office | Neurology | Dhara, | | | 2019 | Visit | | Maddylauraromario, [employer] [address] | | | | | | [address] [facility], | | | | | | [place] [address] | | | | | | [phone] | | | | | | | [...]
--- OUTSIDE RECORDS SUMMARY | ~2020-02-18 | XMS | Encounter Summary ---
Demographics + + + | Address | [address] | | | [place] [address] | + + + | Home Phone [...] Team Providers + +------+ + | Care Pond Sawyer Name | Role | Phone | [...] 2018 | | [facility] | STUD MASTER/MISTRESS-REPAIR SERVICE DISPATCHER [address] | | | | | [facility] [address] | [address] [place] | | | | | [address] [place], | [place] [address] | | | | | [place] [address] | [phone] | | | | | [phone] | | | +--------+ + + + [...] | | | | | [place] [address] | | | | | | [phone] | | | | | | | | | | | | Julia Fisher, | | | | | | PT | | +--------+ + + + + | 02/18/ | Appointment | Rehabilitation | Erika Ernst, | | | 2019 | | | DO [address] | | | | | | [place] [address] | | | | | | [phone] | | | | | | | | | | | | Genesis Ayon OT | | +--------+ + + + + | 02/25/ | Office | Primary Care | Erika Ernst, | | | 2019 | Visit | | DO [address] | | | | | | [place] [address] | | | | | | [phone] | | | | | | | [...] | | | | | [place] [address] | | | | | | [phone] | | | | | | | | +--------+ + + + + | 02/27/ | Appointment | Radiology | Dhara, | | | 2019 | | | [address]WAINE [address] | | | | | | [address] [facility], | | | | | | [place] [address] | | | | | | [phone] | | | | | | | | +--------+ + + + + | 03/04/ | Appointment | Rehabilitation | Genesis Ayon OT | | | 2019 | | | | | +--------+ + + + + | 03/09/ | Office | Orthopedic Surgery | Jeffrey Gandhi, | | | 2019 | Visit | | [place] [address] [facility] | | | | | | [place] [address] | | | | | | [phone] | | | | | | | [...] [place] | | | | | | [address] | | | | | | [phone] | | | | | | | [...] | | | | | [place] [address] | | | | | | [phone] | | | | | | | | | | | | Azul Yeboah, | | | | | | MD [address] | | | | | | [place] | | | | | | [place] [address] | | | | | | [phone] | | | | | | | [...] | | | | | | [place] [address] | | | | | | [phone] | | | | | | | | +--------+ + + + + documented as of this encounter Visit Diagnoses Not on filedocumented in this encounter"
--- OUTSIDE RECORDS SUMMARY | ~2020-02-18 | XMS | Encounter Summary ---
Demographics + + + | Address | [address] | | | [place] [address] | + + + | Home Phone [...] Team Providers + +------+ + | Care Taping Supervisor Name | Role | Phone | + +------+ + | Erika Ernst DO | PCP | | + +------+ + Reason for Visit +--------+ + | Reason | Comments | +--------+ + | LABS | | +--------+ + Encounter Details +--------+ + + + + | Date | Type | Department | Care Team | Description | +--------+ + + + + | 09/17/ | Telephone | [facility] [facility] | Erika Ernst, | LABS | | 2019 | | [facility] | DO [address] | | | | | MEDICAL CLINIC [address] | [place] [address] | | | | | [address] [place], | [phone] | | | | | [place] [address] | | | | | | [phone] | | | +--------+ + + + [...] | | | | | [place] [address] | | | | | | [phone] | | | | | | | | | | | | Julia Fisher, | | | | | | PT | | +--------+ + + + + | 02/18/ | Appointment | Rehabilitation | Erika Ernst, | | | 2019 | | | DO [address] [place] | | | | | | [place] [address] | | | | | | [phone] | | | | | | | | | | | | Genesis Ayon OT | | +--------+ + + + + | 02/25/ | Office | Primary Care | Erika Ernst, | | | 2019 | Visit | | DO [address] | | | | | | [place] [address] | | | | | | [phone] | | | | | | | [...] | | | | | [place] [address] | | | | | | [phone] | | | | | | | | +--------+ + + + + | 02/27/ | Appointment | Radiology | Dhara, | | | 2019 | | | DWAINE [address] | | | | | | [facility] | | | | | | [place] [address] | | | | | | [phone] | | | | | | | [...] [place] | | | | | | [place] [address] | | | | | | [phone] | | | | | | | [...] [place] | | | | | | [address] | | | | | | [phone] | | | | | | | [...] | | | | | [place] [address] | | | | | | [phone] | | | | | | | | | | | | Azul Yeboah, | | | | | | MD [address] | | | | | | [place] | | | | | | [place] [address] | | | | | | [phone] | | | | | | | [...] | | | | | | [place] [address] | | | | | | [phone] | | | | | | | | +--------+ + + + + documented as of this encounter Visit Diagnoses Not on filedocumented in this encounter"
--- OUTSIDE RECORDS SUMMARY | ~2020-02-18 | XMS | Encounter Summary ---
Demographics + + + | Address | [address] | | | [place] [address] | + + + | Home Phone [...] Team Providers + +------+ + | Care Biomaterials Engineer Name | Role | Phone | [...] | Required | | right index | AIRFRAME AND POWER PLANT MECHANIC-GIS DATABASE ADMINISTRATOR | [address] | | | | | finger, | [address] | [place] | | | | | initial | St [place] | [place], [place] | | | | | encounter | [place], [place] | [address] | | | | | Procedures | [address] | Phone: | | | | | [place] | Phone: | [phone] | | | | | | [phone] | Fax: | | | | | | Fax: | [phone] | | | | | | [phone] | | +--------+ + + + + [...] right | | 2019 | Visit | [facility] | AIRFRAME AND POWER PLANT MECHANIC-GIS DATABASE ADMINISTRATOR [address] | index finger, | | | | [facility] [address] | initial encounter | | | | [address] [place], | [place] [address] | (Primary Dx) | | | | [place] [address] | [phone] | | | | | [phone] | | | +--------+---------+ + + + [...] in this encounter Progress Notes YolandaStuAlem L, AIRFRAME AND POWER PLANT MECHANIC-GIS DATABASE ADMINISTRATOR - 05/06/2019 5:00 PM PDTFormatting of this [...] mouth. Once a week Cholecalciferol (VITAMIN D3) 12969 units TABS Take 1 tablet by mouth [...] the past 24 hour(s)). AMB REFERRAL TO [facility]TH[facility]IC XR FINGER RIGHT 2 + VW Assessment: 1. Injury of right index finger, initial encounter - * [place] [facility] Orthopedic - AMB Referral - XR Finger Right 2 + Vw; Future Plan: Persistent right index finger PIP joint pain post injury two months ago. Will get an xray, place in a finger splint and refer to orthopedics as requested Return for referral to orthopedics. Electronically signed by: CHASE Edward05/06/201918:28 [facility] Note: Part of this report was transcribed using voice recognition software. Every effort wa s made to ensure accuracy. However, inadvertent computerized sprigger errors may be pre sent. documente d [...] | | | | | [place] [address] | | | | | | [phone] | | | | | | | | | | | | Julia Fisher, | | | | | | PT | | +--------+ + + + + | 02/18/ | Appointment | Rehabilitation | Erika Ernst, | | | 2019 | | | DO [address] | | | | | | [place] [address] | | | | | | [phone] | | | | | | | | | | | | Genesis Ayon OT | | +--------+ + + + + | 02/25/ | Office | Primary Care | Erika Ernst, | | | 2019 | Visit | | DO [address] | | | | | | [place] [address] | | | | | | [phone] | | | | | | | [...] | | | | | [place] [address] | | | | | | [phone] | | | | | | | | +--------+ + + + + | 02/27/ | Appointment | Radiology | Dhara, | | | 2019 | | | DWAINE Ross [address] | | | | | | 4TH [facility] [place], | | | | | | [place] [address] | | | | | | [phone] | | | | | | | | +--------+ + + + + | 03/04/ | Appointment | Rehabilitation | Genesis Ayon OT | | | 2019 | | | | | +--------+ + + + + | 03/09/ | Office | Orthopedic Surgery | Jeffrey Gandhi, | | | 2019 | Visit | | [place] [address] [facility] | | | | | | [place] [address] | | | | | | [phone] | | | | | | | [...] [place] | | | | | | [address] | | | | | | [phone] | | | | | | | [...] | | | | | [place] [address] | | | | | | [phone] | | | | | | | | | | | | Azul Yeboah, | | | | | | MD [address] | | | | | | [place] | | | | | | [place] [address] | | | | | | [phone] | | | | | | | [...] | | | | | | [place] [address] | | | | | | [phone] | | | | | | | [...]
--- OUTSIDE RECORDS SUMMARY | ~2020-02-18 | XMS | Encounter Summary ---
Demographics + + + | Address | [address] | | | [place] [address] | + + + | Home Phone [...] Providers + +------+ + | Care Clinical Unit Educator Name | Role | Phone | [...] | +--------+ + + + + | 10/31/ | Telephone | [place] [facility] | Erika Ernst, | Medication Question | | 2019 | | [facility] | DO [address] | | | | | [facility] CL[facility] [address] | [facility] [place] [address] | | | | | [address] [facility], | [phone] | | | | | [place] [address] | | | | | | [phone] | | | +--------+ + + + [...] | | | | | [place] [address] | | | | | | [phone] | | | | | | | | | | | | Julia Fisher, | | | | | | PT | | +--------+ + + + + | 02/18/ | Appointment | Rehabilitation | Erika Ernst, | | | 2019 | | | DO [address] [place] | | | | | | [place] [address] | | | | | | [phone] | | | | | | | | | | | | Genesis Ayon OT | | +--------+ + + + + | 02/25/ | Office | Primary Care | Erika Ernst, | | | 2019 | Visit | | DO [address] | | | | | | [place] [address] | | | | | | [phone] | | | | | | | [...] | | | | | [place] [address] | | | | | | [phone] | | | | | | | | +--------+ + + + + | 02/27/ | Appointment | Radiology | Dhara, | | | 2019 | | | DWAINE Ross [address] | | | | | | 4TH [facility], | | | | | | [place] [address] | | | | | | [phone] | | | | | | | | +--------+ + + + + | 03/04/ | Appointment | Rehabilitation | Genesis Ayon OT | | | 2019 | | | | | +--------+ + + + + | 03/09/ | Office | Orthopedic Surgery | Jeffrey Gandhi, | | 2019 | Visit | | [address] | | | | | | [place] [address] | | | | | | [phone] | | | | | | | [...] [place] | | | | | | [address] | | | | | | [phone] | | | | | | | [...] | | | | | [place] [address] | | | | | | [phone] | | | | | | | | | | | | Azul Yeboah, | | | | | | MD [address] | | | | | | [place] | | | | | | [place] [address] | | | | | | [phone] | | | | | | | [...] | | | | | | [place] [address] | | | | | | [phone] | | | | | | | | +--------+ + + + + documented as of this encounter Visit Diagnoses Not on filedocumented in this encounter"
--- OUTSIDE RECORDS SUMMARY | ~2020-02-18 | XMS | Encounter Summary ---
Demographics + + + | Address | [address] | | | [place] [address] | + + + | Home Phone [...] Providers + +------+ + | Care Creative Strategist Name | Role | Phone | [...] | | | MEDICAL [facility] [address] | [facility] [address] | | | | | [address] [place], | [phone] | | | | | [place] [address] | | | | | | [phone] | | | +--------+ + + + [...] 2019 | | | DO [address] | | | | | | [place] [address] | | | | | | [phone] | | | | | | | | | | | | Julia Fisher, | | | | | | PT | | +--------+ + + + + | 02/18/ | Appointment | Rehabilitation | Erika Ernst, | | | 2019 | | | DO [address] [place] | | | | | | [place] [address] | | | | | | [phone] | | | | | | | | | | | | Genesis Ayon OT | | +--------+ + + + + | 02/25/ | Office | Primary Care | Erika Ernst, | | | 2019 | Visit | | DO [address] | | | | | | [place] [address] | | | | | | [phone] | | | | | | | [...] | | | | | [place] [address] | | | | | | [phone] | | | | | | | | +--------+ + + + + | 02/27/ | Appointment | Radiology | Dhara, | | | 2019 | | | DWAINE Ross [address] | | | | | | [address] [facility] | | | | | | [place] [address] | | | | | | [phone] | | | | | | | [...] | | | | [place], [place] [address] | | | | | | [phone] | | | | | | | [...] [place] | | | | | | [address] | | | | | | [phone] | | | | | | | [...] | | | | | [place] [address] | | | | | | [phone] | | | | | | | | | | | | Azul Yeobah, | | | | | | MD [address] | | | | | | [place] | | | | | | [place] [address] | | | | | | [phone] | | | | | | | [...] | | | | | | [place] [address] | | | | | | [phone] | | | | | | | | +--------+ + + + + documented as of this encounter Results Path Hematology Request (02/20/2019 4:26 PM PDT) + + + + + + | Component | Value | Ref Range | Performed | Pathologist | | | | | At | Signature | + + + + + + | Peripheral | Comment: Per Dr. Perez | | [place] | | | Smear | 02/26/19: Agree with | | RONDE [...] + + | [place] [facility] | [address] | [place] | [phone] | | [facility] | | [address] | | + + + + + documented in this encounter Visit Diagnoses + + | Diagnosis | + + | Lymphocytosis - Primary Lymphocytosis (symptomatic) | + + documented in this encounter"
--- OUTSIDE RECORDS SUMMARY | ~2020-02-18 | XMS | Encounter Summary ---
Demographics + + + | Address | [address] | | | [place] [address] | + + + | Home Phone [...] Team Providers + +------+ + | Care Division Service Manager Name | Role | Phone | [...] | +--------+ + + + + | 02/15/ | Telephone | [place] [facility] | KleverErika Joie, | Results | | 2019 | | [facility] | DO [address] | | | | | MEDICAL CLINIC [address] | [place] [address] | | | | | [address] [place], | [phone] | | | | | [place] [address] | | | | | | [phone] | | | +--------+ + + + [...] | | | | | [place] [address] | | | | | | [phone] | | | | | | | | | | | | Julia Fisher, | | | | | | PT | | +--------+ + + + + | 02/18/ | Appointment | Rehabilitation | Erika Ernst, | | | 2019 | | | DO [address] | | | | | | [place] [address] | | | | | | [phone] | | | | | | | | | | | | Genesis Ayon OT | | +--------+ + + + + | 02/25/ | Office | Primary Care | Erika Ernst, | | | 2019 | Visit | | DO [address] [place] | | | | | | [place] [address] | | | | | | [phone] | | | | | | | [...] | | | | | [place] [address] | | | | | | [phone] | | | | | | | | +--------+ + + + + | 02/27/ | Appointment | Radiology | Dhara, | | | 2019 | | | DWAINE Ross [address] | | | | | | 4TH [facility], | | | | | | [place] [address] | | | | | | [phone] | | | | | | | [...] | | | | | [place] [address] | | | | | | [phone] | | | | | | | [...] [place] | | | | | | [address] | | | | | | [phone] | | | | | | | [...] | | | | | [place] [address] | | | | | | [phone] | | | | | | | | | | | | Azul Yeboah, | | | | | | MD [address] | | | | | | [place] | | | | | | [place] [address] | | | | | | [phone] | | | | | | | [...] | | | | | | [place] [address] | | | | | | [phone] | | | | | | | | +--------+ + + + + documented as of this encounter Visit Diagnoses Not on filedocumented in this encounter"
--- OUTSIDE RECORDS SUMMARY | ~2020-02-18 | XMS | Encounter Summary ---
Demographics + + + | Address | [address] | | | [place] [address] | + + + | Home Phone [...] Team Providers + +------+ + | Care Toll Bridge Attendant Name | Role | Phone | + +------+ + | Erika Ernst DO | PCP | | + +------+ + Reason for Visit +---------+ + | Reason | Comments | +---------+ + | URI | 2wk | +---------+ + | Otalgia | bilat | +---------+ + Encounter Details +--------+---------+ + + + | Date | Type | Department | Care Team | Description | +--------+---------+ + + + | 12/03/ | Office | [place] [facility] | Alem Guerrero, | Otalgia of both ears | | 2019 | Visit | [facility] | SOFTWARE DESIGN ANALYST-PASSENGER ATTENDANT [address] | (Primary Dx); Acute | | | | [facility] [address] | recurrent | | | | [address] [place], | [place] [address] | pansinusitis | | | | [place] [address] | [phone] | | | | | [phone] | | | +--------+---------+ + + + [...] + + + | Blood Pressure | 116/86 | 12/03/2018 11:47 AM | | | | | PST | | + + + + + | Pulse | 78 | 12/03/2018 11:47 AM | | | | | PST | | + + + + + | Temperature | 36.4 C (97.6 F) | 12/03/2018 11:47 AM | | | | | PST | | + + + + + | Respiratory Rate | 18 | 12/03/2018 11:47 AM | | | | | PST | | + + + + + | Oxygen Saturation | 98% | 12/03/2018 11:47 AM | | | | | PST | | + + + + + | Inhaled Oxygen | - | - | | | Concentration | | | | + + + + + | Weight | 168.7 kg (372 lb) | 12/03/2018 11:47 AM | | | | | PST | | + + + + + | Height | 177.8 cm (5' 10") | 12/03/2018 11:47 AM | | | | | PST | | + + + + + | Body Mass Index | 53.38 | 12/03/2018 11:47 AM | | | | | PST | | + + + + + documented in this encounter Patient Instructions Patient Instructions Alem Guerrero APRN-PASSENGER ATTENDANT - 12/03/2018 12:23 PM PSTPlan: Sinusitis -Take antibiotics as prescribed. -Use nasal saline spray frequently throughout the day. - frequent hot, steamy showers are helpful. -Moist heat over the face can be soothing. -Use ibuprofen (Motrin): 600mg by mouth every 6-8 hrs, with food, as needed for pain. Do no t use for more than 7-10 days. -Alternatively, you may try acetaminophen (Tylenol): 1000mg by mouth, every 4-6 hours, as n eeded. Do not take more than 4 grams (4 doses) in 24 hours. -Recheck if not improved in 5 days, well in 2 weeks. (Sinus infections take longer to treat than some other respiratory infections.) You may recheck sooner if symptoms are worsening significantly. Earache, No Infection (Adult) Earaches can happen without an infection. This occurs when air and fluid build up behind th e eardrum causing a feeling of fullness and discomfort and reduced hearing. This is called o titis media with effusion (OME) or serous otitis media. It means there is fluid in the middl e ear. It is not the same as acute otitis media, which is typically from infection. OME can happen when you have a cold if congestion blocks the passage that drains the middle ear. This passage is called the eustachian tube. OME may also occur with nasal allergies or after a bacterial middle ear infection. The pain or discomfort may come and go. You may hear clicking or popping sounds when you ch ew or swallow. You may feel that your balance is off. Or you may hear ringing in the ear. It often takes from several weeks up to 3 months for the fluid to clear on its own. Oral pa in relievers and ear drops help if there is pain. Decongestants and antihistamines sometimes help. Antibiotics don't help since there is no infection. Your doctor may prescribe a nasal spray to help reduce swelling in the nose and eustachian tube. This can allow the ear to dr landon. If your OME doesn't improve after 3 months, surgery may be used to drain the fluid and inse rt a small tube in the eardrum to allow continued drainage. Because the middle ear fluid can become infected, it is important to watch for signs of an ear infection which may develop later. These signs include increased ear pain, fever, or gonzalo inage from the ear. Home care The following guidelines will help you care for yourself at home: You may use zttw-dvp-qsgecdt medicine as directed to control pain, unless another medici ne was prescribed. If you have chronic liver or kidney disease or ever had a stomach ulcer o r GI bleeding, talk with your doctor before using these medicines. Aspirin should never be u sed in anyone under 18 years of age who is ill with a fever. It may cause severe liver damag e. You may use ybpz-qrh-aiqeamy decongestants such as phenylephrine or pseudoephedrine. But they are not always helpful. Don't use nasal spray decongestants more than 3 days. Longer u se can make congestion worse. Prescription nasal sprays from your doctor don't typically hav e those restrictions. Antihistamines may help if you are also having allergy symptoms. You may use medicines such as guaifenesin to thin mucus and promote drainage. Follow-up care Follow up with your healthcare provider or as advised if you are not feeling better after 3 days. When to seek medical advice Call your healthcare provider right away if any of the following occur: Your ear pain gets worse or does not start to improve Fever of 100.4F (38C) or higher, or as directed by your healthcare provider Fluid or blood draining from the ear Headache or sinus pain Stiff neck Unusual drowsiness or confusion Date Last Reviewed: 07/02/201619995950-0874 [employer]. [address] [place] [address]. All righ ts reserved. This information is not intended as a substitute for professional medical care. Always follow your healthcare professional's instructions. documented in this encounter Progress Notes Alem Guerrero APRN-FNP - 12/03/2018 11:20 AM PSTFormatting of this note might be diffe rent from the original. Subjective: Patient ID: Andrea Suh is a 28 y.o. female. Chief Complaint Patient presents with URI 2wk Otalgia bilat Otalgia There is pain in both ears. Episode onset: at least two weeks ago. The problem occurs const antly (worse at night). The problem has been gradually worsening. Maximum temperature: low g rade fever. The pain is at a severity of 5/10. The pain is moderate. Associated symptoms inc lude coughing, headaches, hearing loss (feel stuffy), rhinorrhea (stuffy) and a sore throat (mild). Pertinent negatives include no ear discharge. Associated symptoms comments: Sinus co ngestion and pressure; stomach has been a little upset. She has tried acetaminophen (cough d rops; chloraceptic spray) for the symptoms. The treatment provided no relief. Her past medic al history is significant for a chronic ear infection. There is no history of hearing loss o r a tympanostomy tube. allergies She takes sudafed daily prescribed by Dr. Pruett in [place] (auto transmission technician/asthma specialist) Chronic ear pain from TMJ; unsure if this is different Saw Dr. Alvarado two weeks ago and Dr. Wheeler last week; scheduling CT of sinuses; did not wa nt to order antibiotics at that time; sinus pressure has continued to worsen and she was sen t home from work yesterday Allergies Allergen Reactions Escitalopram Palpitations Latex Rash Hydrocodone Hives Norethindrone Oxycodone Uncoded Nonscreenable Allergen Other (See Comments) Other reaction(s): Proclivity to C-diff with certain antibiotics Adhesive & Tape Rash Patient Active Problem List Diagnosis Date Noted POA Nasal obstruction 11/20/2018 Unknown Deviated nasal septum [...] Asthma due to environmental allergies 02/16/2018 Unknown Depression 02/16/2018 Unknown Class 3 severe obesity due [...] Re ported on 12/03/2018) 30 tablet 11 azelastine 0.1% nasal spray instill 1 to 2 spray into each nostril twice a day if neede d 1 beclomethasone (QVAR) 80 mcg/puff inhaler 4 puffs BID 1 Inhaler 11 budesonide-formoterol (SYMBICORT) 160-4.5 mcg/puff inhaler Inhale 2 puffs into the lung s 2 times daily. busPIRone (BUSPAR) 15 mg tablet BID 60 tablet 3 Cholecalciferol (VITAMIN D3) 21661 units TABS Take 1 tablet by mouth [...] on file prior to visit. Objective: Vitals: 12/03/18 1147 BP: 116/86 Pulse: 78 Resp: 18 Temp: 36.4 C (97.6 F) PainSc: 5 PainLoc: Ear Physical Exam General appearance: well-nourished, alert, appears to feel mildly unwell Head and Face: normal size and shape; no redness or lesion; indicates maxillary and frontal sinus tenderness to palpation EENT: Sclera and conjunctiva clear; tympanic membrane appearance normal; intact; no signs o f acute infection; hearing intact to conversational voice; oral mucosa normal without pallor or cyanosis; normal dentition for age; lips without lesions, mild posterior pharynx redness /irritation, no exudate Neck: trachea midline, normal appearance, no masses or tenderness, no palpable enlargement of thyroid Chest: lungs clear on auscultation, no tachypnea, no increased work of breathing Cardiovascular: regular rate and rhythm, no abnormal heart sounds; no edema; extremities we ll perfused; no prominent bruising or discoloration Lymphatic: no cervical lymphadenopathy; no supraclavicular lymphadenopathy Skin: warm and dry to touch; no rashes in visible places Neurologic: Alert and oriented X 3; does not appear dizzy or orthostatic Psychiatric: oriented to time, place and person, normal affect and mood No results found for this or any previous visit (from the past 24 hour(s)). None Assessment: 1. Otalgia of both ears 2. Acute recurrent pansinusitis - amoxicillin-clavulanate (AUGMENTIN) 875-125 mg per tablet; Take 1 tablet by mouth 2 times daily for 10 days. Dispense: 20 tablet; Refill: 0 Plan: Plan: Sinusitis -Take antibiotics as prescribed. -Use nasal saline spray frequently throughout the day. - frequent hot, steamy showers are helpful. -Moist heat over the face can be soothing. -Use ibuprofen (Motrin): 600mg by mouth every 6-8 hrs, with food, as needed for pain. Do no t use for more than 7-10 days. -Alternatively, you may try acetaminophen (Tylenol): 1000mg by mouth, every 4-6 hours, as n eeded. Do not take more than 4 grams (4 doses) in 24 hours. -Recheck if not improved in 5 days, well in 2 weeks. (Sinus infections take longer to treat than some other respiratory infections.) You may recheck sooner if symptoms are worsening significantly. Return in about 1 week (around 12/10/2018) for with pcp as planned. Electronically signed by: ALBA [email or web address] [facility], Walk-in [facility] Note: Part of this report was transcribed using voice recognition software. Every effort wa s made to ensure accuracy. However, inadvertent computerized philosophy and religion instructor errors may be pre sent. [email or web address] rubin in this encounter Plan of Treatment +--------+ + + + + | Date | Type | Specialty | Care Team | Description | +--------+ + + + + | 02/18/ | Appointment | Rehabilitation | Erika Ernst, | | | 2019 | | | DO [address] | | | | | | [place] [address] | | | | | | [phone] | | | | | | | | | | | | Julia Fisher, | | | | | | PT | | +--------+ + + + + | 02/18/ | Appointment | Rehabilitation | Erika Ernst, | | | 2019 | | | DO [address] | | | | | | [place] [address] | | | | | | [phone] | | | | | | | | | | | | Genesis Ayon OT | | +--------+ + + + + | 02/25/ | Office | Primary Care | Erika Ernst, | | | 2019 | Visit | | DO [address] | | | | | | [place] [address] | | | | | | [phone] | | | | | | | [...] | | | | | [place] [address] | | | | | | [phone] | | | | | | | | +--------+ + + + + | 02/27/ | Appointment | Radiology | Dhara | | | 2019 | | | DWAINE Ross [address] | | | | | [address] [place], | | | | | | [place] [address] | | | | | | [phone] | | | | | | | | +--------+ + + + + | 03/04/ | Appointment | Rehabilitation | Genesis Ayon OT | | | 2019 | | | | | +--------+ + + + + | 03/09/ | Office | Orthopedic Surgery | Jeffrey Gandhi, | | | 2019 | Visit | | [address] | | | | | | [place] [address] | | | | | | [phone] | | | | | | | [...] [place] | | | | | | [address] | | | | | | [phone] | | | | | | | [...] | | | | | [place] [address] | | | | | | [phone] | | | | | | | | | | | | Azul Yeboah, | | | | | | [address] | | | | | | [place] | | | | | | [place] [address] | | | | | | [phone] | | | | | | | [...] | | | | | | [place] [address] | | | | | | [phone] | | | | | | | | +--------+ + + + + documented as of this encounter Visit Diagnoses + + | Diagnosis | + + | Otalgia of both ears - Primary Otalgia, unspecified | + + | Acute recurrent pansinusitis Other acute sinusitis | + + documented in this encounter
--- OUTSIDE RECORDS SUMMARY | ~2020-02-18 | XMS | Encounter Summary ---
Demographics + + + | Address | [address] | | | [place] [address] | + + + | Home Phone [...] Team Providers + +------+ + | Care Equity Structurer Name | Role | Phone | + +------+ + | Erika Ernst DO | PCP | | + +------+ + Reason for Visit + + + | Reason | Comments | + + + | Follow-up | asthma | + + + | Medication Follow-up | Blood pressure | + + + | Jaw Pain | 4/10 | + + + Encounter Details +--------+---------+ + + + | Date | Type | Department | Care Team | Description | +--------+---------+ + + + | 02/28/ | Office | [facility] [facility] | Erika Ernst, | Vitamin D deficiency | | 2019 | Visit | [facility] | DO [address] | (Primary Dx); | | | | MED[facility] [address] | [place] [address] | Essential | | | | [address] [place], | [phone] | hypertension; Asthma | | | | [place] [address] | | due to | | | | [phone] | | environmental | | | | | | allergies; TMJ | | | | | | (temporomandibular | | | | | | joint disorder) | +--------+---------+ + + + Social [...] + | Blood Pressure | 140/94 | 02/28/2019 9:55 AM | | | | | PDT | | + + + + + | Pulse | 84 | 02/28/2019 9:55 AM | | | | | PDT | | + + + + + | Temperature | - | - | | + + + + + | Respiratory Rate | 17 | 02/28/2019 9:55 AM | | | | | PDT | | + + + + + | Oxygen Saturation | 98% | 02/28/2019 9:55 AM | | | | | PDT | | + + + + + | Inhaled Oxygen | - | - | | | Concentration | | | | + + + + + | Weight | 174.2 kg (384 lb) | 02/28/2019 9:55 AM | | | | | PDT | | + + + + + | Height | 177.8 cm (5' 10") | 02/28/2019 9:55 AM | | | | | PDT | | + + + + + | Body Mass Index | 55.1 | 02/28/2019 9:55 AM | | | | | PDT | | + + + + + documented in this encounter Progress Notes Erika Ernst, DO - 02/28/2019 10:00 AM PDTFormatting of this note might be different fro m the original. Subjective: Patient ID: Andrea Suh is a 28 y.o. female. Here to FU on HTN. She is elevated today but she brings record from home and has all normal readings and even some lows. She states she does have to not take her med some days because BP is 90 systolic. She would rather not change any dose today and she will continue to korin tor. No chest pain or SOB. She has bilateral TMJ dysfunction and is doing PT but needs refil l on flexeril for this. States the muscle relaxant helps. She has asthma and no flairs at pr esent and needs refill on her Qvar inhaler for continued use. She had some mild leukocytosis but path reviewed and was reactive due to her recent asthma and bronchitis flairs. She is g etting recheck on this today. She also is due for recheck on her low vitamin D levels. She c ompleted the high dose vitamin D replacement. She is a non-smoker. Review of Systems As above Objective: BP (!) 140/94 | Pulse 84 | Resp 17 | Ht 1.778 m (5' 10") | Wt (!) 174.2 kg (384 lb) | LMP 02/18/2019 | SpO2 98% | BMI 55.10 kg/m Physical Exam Constitutional: She is oriented to person, place, and time. She appears well-developed and well-nourished. No distress. HENT: Head: Normocephalic and atraumatic. Mouth/Throat: Oropharynx is clear and moist. Bilateral TM's clear Eyes: Pupils are equal, round, and reactive to light. EOM are normal. Right eye exhibits no discharge. Left eye exhibits no discharge. Cardiovascular: Normal rate, regular rhythm and normal heart sounds. No murmur heard. Pulmonary/Chest: Effort normal and breath sounds normal. No stridor. No respiratory distres s. Neurological: She is alert and oriented to person, place, and time. Skin: Skin is warm and dry. Psychiatric: She has a normal mood and affect. Her behavior is normal. Assessment: 1. Vitamin D deficiency Vitamin D, Deficiency Screen (25-Hydroxy) 2. Essential hypertension 3. Asthma due to environmental allergies 4. TMJ (temporomandibular joint disorder) Plan: Lab vitamin D level and CBC. CBC to recheck on the mild leukocytosis. Continue current HTN control. She will continue to monitor at home. Refilled Qvar inhaler. Refilled flexeril for TMJ pain and spasm of jaw. documented in this en counter Plan of Treatment +--------+ + + + + | Date | Type | Specialty | Care Team | Description | +--------+ + + + + | 02/18/ | Appointment | Rehabilitation | Erika Ernst, | | | 2019 | | | DO [address] | | | | | | [place] [address] | | | | | | [phone] | | | | | | | | | | | | Julia Fisher, | | | | | | PT | | +--------+ + + + + | 02/18/ | Appointment | Rehabilitation | Erika Ernst, | | | 2019 | | | DO [address] | | | | | | [place] [address] | | | | | | [phone] | | | | | | | | | | | | Genesis Ayon OT | | +--------+ + + + + | 02/25/ | Office | Primary Care | Erika Ernst, | | | 2019 | Visit | | DO [address] | | | | | | [place] [address] | | | | | | [phone] | | | | | | | [...] | | | | | [place] [address] | | | | | | [phone] | | | | | | | | +--------+ + + + + | 02/27/ | Appointment | Radiology | Dhara, | | | 2019 | | | [address] | | | | | | [address]TH [facility], | | | | | | [place] [address] | | | | | | [phone] | | | | | | | [...] | | | | | [place] [address] | | | | | | [phone] | | | | | | | [...] [place] | | | | | | [address] | | | | | | [phone] | | | | | | | [...] | | | | | [place] [address] | | | | | | [phone] | | | | | | | | | | | | Azul Yeboah, | | | | | | MD [address] | | | | | | [place] | | | | | | [place] [address] | | | | | | [phone] | | | | | | | [...] | | | | | | [place] [address] | | | | | | [phone] | | | | | | | | +--------+ + + + + documented as of this encounter Procedures + +--------+ + + + | Procedure Name | Priori | Date/Time | Associated Diagnosis | Comments | | | ty | | | | + +--------+ + + + | VITAMIN D, | Routin | 02/28/2019 | Vitamin D | Results for this | | DEFICIENCY SCREEN | e | 10:33 AM | deficiency | procedure are in the | | (25-HYDROXY) | | PDT | | results section. | + +--------+ + + + documented in this encounter Results Vitamin D, Deficiency Screen (25-Hydroxy) (02/28/2019 10:33 AM PDT) + +-------+ + + + | Component | Value | Ref Range | Performed | Pathologist | | | | | At | Signature | + +-------+ + + + | Vitamin D, | 37 | 30 - 100 ng/mL | [place] [...] + + | [facility] | [address] | [place] | [phone] | | [facility] | | [address] | | + + + + + documented in this encounter Visit Diagnoses + + | Diagnosis | + + | Vitamin D deficiency - Primary Unspecified vitamin D deficiency | + + | Essential hypertension Unspecified essential hypertension | + + | Asthma due to environmental allergies | + + | TMJ (temporomandibular joint disorder) Temporomandibular joint disorders, unspecified | + + documented in this encounter
--- OUTSIDE RECORDS SUMMARY | ~2020-02-18 | XMS | Encounter Summary ---
Demographics + + + | Address | [address] | | | [place] [address] | + + + | Home Phone [...] Providers + +------+ + | Care Residential Carpet Installer Name | Role | Phone | [...] | [address] [place] | [place] [address] | | | | | [place], [place] | [phone] | | | | | [address] | | | | | | [phone] | | | +--------+ + + + [...] | | 2019 | | | DO [address] [place] [address] | | | | | | [place] [address] | | | | | | [phone] | | | | | | | | | | | | Julia Fisher, | | | | | | PT | | +--------+ + + + + | 02/18/ | Appointment | Rehabilitation | Erika Ernst, | | | 2019 | | | DO [address] | | | | | | [place] [address] | | | | | | [phone] | | | | | | | | | | | | Genesis Ayon OT | | +--------+ + + + + | 02/25/ | Office | Primary Care | Erika Ernst, | | | 2019 | Visit | | DO [address] | | | | | | [place] [address] | | | | | | [phone] | | | | | | | [...] | | | | | | [place] [address] | | | | | | [phone] | | | | | | | | +--------+ + + + + | 02/27/ | Appointment | Radiology | Dhara, | | | 2019 | | | [address] | | | | | | [address] [place], | | | | | | [place] [address] | | | | | | [phone] | | | | | | | [...] [place] | | | | | | [place] [address] | | | | | | [phone] | | | | | | | | +--------+ + + + + | 03/11/ | Appointment | Rehabilitation | Genesis Ayno [...] | | | | | | [place] | | | | | | [address] | | | | | | [phone] | | | | | | | [...] | | | | | [place] [address] | | | | | | [phone] | | | | | | | | | | | | Azul Yeboah, | | | | | | MD [address] | | | | | | [place] | | | | | | [place] [address] | | | | | | [phone] | | | | | | | | +--------+ + + + + | 04/08/ | Appointment | Nutrition | Janel Webster | | | 2019 | | | [place], KHOA | | +--------+ + + + + | 05/21/ | Office | Neurology | Dhara, | | | 2019 | Visit | | Cody, SNOWMAKER [address] | | | | [address] [place], | | | | | | [place] [address] | | | | | | [phone] | | | | | | | [...] of the medial foot. Age appropriate bone bank examiner al density. | | | |IMPRESSION: [...]
--- OUTSIDE RECORDS SUMMARY | ~2020-02-18 | XMS | Encounter Summary ---
Demographics + + + | Address | [address] | | | [place] [address] | + + + | Home Phone [...] Providers + +------+ + | Care Associate Professor Of Music Name | Role | Phone | + [...] + | 08/01/ | Telephone | [facility] | Erika Ernst, | Medication Question | | 2018 | | [facility] | DO [address] | | | | | MEDICAL CLIN[facility] [address] | [place] [address] | | | | | [address] [facility], | [phone] | | | | | [place] [address] | | | | | | [phone] | | | +--------+ + + + [...] | | | | | [place] [address] | | | | | | [phone] | | | | | | | | | | | | Julia Fisher, | | | | | | PT | | +--------+ + + + + | 02/18/ | Appointment | Rehabilitation | Erika Ernst, | | | 2019 | | | DO [address] | | | | | | [place] [address] | | | | | | [phone] | | | | | | | | | | | | Genesis Ayon OT | | +--------+ + + + + | 02/25/ | Office | Primary Care | Erika Ernst, | | | 2019 | Visit | | DO [address] | | | | | | [place] [address] | | | | | | [phone] | | | | | | | [...] | | | | | | [place] [address] | | | | | | [phone] | | | | | | | | +--------+ + + + + | 02/27/ | Appointment | Radiology | Dhara, | | | 2019 | | | [address] | | | | | | [address] [facility], | | | | | | [place] [address] | | | | | | [phone] | | | | | | | [...] [place] | | | | | | [place] [address] | | | | | | [phone] | | | | | | | [...] [place] | | | | | | [address] | | | | | | [phone] | | | | | | | [...] | | | | | [place] [address] | | | | | | [phone] | | | | | | | | | | | | Azul Yeboah, | | | | | | MD [address] | | | | | | [place] | | | | | | [place] [address] | | | | | | [phone] | | | | | | | [...] | | | | | | [place] [address] | | | | | | [phone] | | | | | | | | +--------+ + + + + documented as of this encounter Visit Diagnoses Not on filedocumented in this encounter"
--- OUTSIDE RECORDS SUMMARY | ~2020-02-18 | XMS | Encounter Summary ---
Demographics + + + | Address | [address] | | | [place] [address] | + + + | Home Phone [...] Team Providers + +------+ + | Care Bench Loom Weaver Name | Role | Phone | + +------+ + | Erika Ernst DO | PCP | | + +------+ + Reason for Visit + + + | Reason | Comments | + + + | Medication Question | medication is making her nauseous. | + + + Encounter Details +--------+ + + + + | Date | Type | Department | Care Team | Description | +--------+ + + + + | 05/07/ | Telephone | [facility] [facility] | Erika Ernst, | Medication Question | | 2018 | | [facility] | [facility] [address] | (medication is | | | | MEDICAL CLINIC [address] | [place] [address] | making her nauseous. | | | | [address] [place], | [phone] | ) | | | | [place] [address] | | | | | | [phone] | | | +--------+ + + + [...] | | | | | [place] [address] | | | | | | [phone] | | | | | | | | | | | | Julia Fisher, | | | | | | PT | | +--------+ + + + + | 02/18/ | Appointment | Rehabilitation | Erika Ernst, | | | 2019 | | | DO [address] | | | | | | [place] [address] | | | | | | [phone] | | | | | | | | | | | | Genesis Ayon, OT | | +--------+ + + + + | 02/25/ | Office | Primary Care | Erika Ernst, | | | 2019 | Visit | | DO [address] | | | | | | [place] [address] | | | | | | [phone] | | | | | | | [...] | | | | | [place] [address] | | | | | | [phone] | | | | | | | | +--------+ + + + + | 02/27/ | Appointment | Radiology | Dhara, | | | 2019 | | | [address] | | | | | | [address] [facility] [place], | | | | | | [place] [address] | | | | | | [phone] | | | | | | | | +--------+ + + + + | 03/04/ | Appointment | Rehabilitation | Genesis Ayon OT | | | 2019 | | | | | +--------+ + + + + | 03/09/ | Office | Orthopedic Surgery | Jeffrey Gandhi, | | | 2019 | Visit | | MD [address] [facility] | | | | | | [place] [address] | | | | | | [phone] | | | | | | | [...] [place] | | | | | | [address] | | | | | | [phone] | | | | | | | [...] | | | | | [place] [address] | | | | | | [phone] | | | | | | | | | | | | Azul Yeboah, | | | | | | MD [address] | | | | | | [place] | | | | | | [place] [address] | | | | | | [phone] | | | | | | | [...] | | | | | | [place] [address] | | | | | | [phone] | | | | | | | | +--------+ + + + + documented as of this encounter Visit Diagnoses Not on filedocumented in this encounter"
--- OUTSIDE RECORDS SUMMARY | ~2020-02-18 | XMS | Encounter Summary ---
Demographics + + + | Address | [address] | | | [place] [address] | + + + | Home Phone [...] Phone | + + +---------+ + | Bahvna Boss | ECON | Unknown | | + + +---------+ + Care Team Providers + +------+ + | Care Child Welfare Counselor Name | Role | Phone | [...] | Otolaryngolog | Diagnoses | Klever, | Kokof[place], | | | Services | y | Asthma due | Erika Salter DO | Denis Quevedo, | | | Required | | to | [address] | [address] | | | | | [address]a | [place], | [address] [place] | | | | | [place] allergies | [place] [address] | [place], [place] | | | | | | Phone: | [phone] Phone: | | | | | | [phone] | [phone] | | | | | | Fax: | Fax: | | | | | | [phone] | [phone] | +--------+ + + + + + Reason for Visit + + + | Reason | Comments | + + + | Follow-up | anxiety | + + + Encounter Details +--------+---------+ + + + | Date | Type | Department | Care Team | Description | +--------+---------+ + + + | 08/30/ | Office | [facility] [facility] | Erika Ernst, | Essential | | 2018 | Visit | [facility] | DO [address] | hypertension | | | | MEDICAL CLIN[facility] [address] | [place] [address] | (Primary Dx); | | | | [address] [place], | [phone] | Anxiety; Depression, | | | | [place] [address] | | unspecified | | | | [phone] | | depression type; | | | | | | PTSD (post-traumatic | | | | | | stress disorder); | | | | | | Asthma due to | | | | | | environmental | | | | | | allergies; Oral | | | | | | [...] + + + | Blood Pressure | 170/110 | 08/30/2018 3:03 PM | | | | | PST | | + + + + + | Pulse | 82 | 08/30/2018 3:03 PM | | | | | PST | | + + + + + | Temperature | - | - | | + + + + + | Respiratory Rate | 16 | 08/30/2018 3:03 PM | | | | | PST | | + + + + + | Oxygen Saturation | 93% | 08/30/2018 3:03 PM | | | | | PST | | + + + + + | Inhaled Oxygen | - | - | | | Concentration | | | | + + + + + | Weight | 154.2 kg (340 lb) | 08/30/2018 3:03 PM | | | | | PST | | + + + + + | Height | 177.8 cm (5' 10") | 08/30/2018 3:03 PM | | | | | PST | | + + + + + | Body Mass Index | 48.78 | 08/30/2018 3:03 PM | | | | | PST | | + + + + + documented in this encounter Progress Notes Erika Ernst DO - 08/30/2018 3:00 PM PSTFormatting of this note might be different fro m the original. Subjective: Patient ID: Andrea Suh is a 28 y.o. female. Here to FU on anxiety and depression. Has most trouble with anxiety at this time. Did see h er therapist Carlin on Monday and is requesting increase in the buspar. She will continue to work with therapist as well.. She also has increased BP and of course the anxiety is affe cting this. We will add a beta irma to Tx the HTN and as SE help the anxiety as well. She did see the allergiest/director mission and had allergy testing and symbicort was added to cur rent inhalers with some relief. She is to have allergy shots but would like to see Liam here in town for that so she does not have to travel. She currently is getting oral thrush f rom her steroid inhalers and has had this before and was Tx with nystatin that was effective . She is rinsing her mouth after the inhalers. Review of Systems Constitutional: Negative. HENT: Tongue sore and white patches on tongue Eyes: Negative. Respiratory: Negative for cough, shortness of breath and wheezing. Cardiovascular: Negative. Gastrointestinal: Negative. Psychiatric/Behavioral: The patient is nervous/anxious. Social History Social [...] Tape Rash Outpatient Encounter Prescriptions as of 08/30/2018 Medication Sig Dispense Refill albuterol-ipratropium (COMBIVENT RESPIMAT) [...] Take 10 mg TID 90 tablet 11 [DISCONTINUED] busPIRone (BUSPAR) 5 mg tablet Take one 5mg tab in the AM and two 5mg ta bs to equal 10 mg in the PM 90 tablet 5 diphenhydrAMINE (BENADRYL) 25 MG capsule Take 25 mg by mouth nightly as needed for Itch ing. fluticasone (FLONASE) 50 mcg/nasal spray 1 spray by Nasal route Daily. metoprolol succinate (TOPROL-XL) 50 mg 24 hr tablet Take 1 tablet by mouth Daily. 30 ta blet 11 montelukast (SINGULAIR) 10 mg tablet Take 1 tablet by mouth nightly. 30 tablet 11 [DISCONTINUED] naproxen (NAPROSYN) 500 mg tablet Take 500 mg by mouth 2 times daily (wi th breakfast & dinner). 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 20 tablet 0 [DISCONTINUED] pseudoePHEDrine (SUDAFED) 30 mg tablet Take 30 mg by mouth every 6 hours as needed for Congestion. No facility-administered encounter medications on file as of 08/30/2018. Objective: BP (!) 170/110 | Pulse 82 | Resp 16 | Ht 1.778 m (5' 10") | Wt (!) 154.2 kg (340 lb) | LMP 08/24/2018 | SpO2 93% | ? No | BMI 48.78 kg/m Physical Exam Constitutional: She is oriented to person, place, and time. She appears well-developed and well-nourished. No distress. HENT: Head: Normocephalic and atraumatic. Right Ear: External ear normal. Left Ear: External ear normal. White patches along both sides of tongue and sl increase in tongue redness. No swelling Eyes: Pupils are equal, round, and reactive [...] is normal. Judgment and thought content normal. Anxious at first but calm at end of appointment Assessment: 1. Essential hypertension 2. Anxiety 3. Depression, unspecified depression type 4. PTSD (post-traumatic stress disorder) 5. Asthma due to environmental allergies ENT, External - AMB Referral 6. Oral thrush Plan: Start Toprol XL 50 mg daily. Increase Buspar to 10 mg TID. Continue FU with therapist. Nyst atin mouth rinse Qid for the oral thrush TX. Referral to CATHERINE Wheeler for the allergy [place]. documented in this en counter Plan of Treatment +--------+ + + + + | Date | Type | Specialty | Care Team | Description | +--------+ + + + + | 02/18/ | Appointment | Rehabilitation | Erika Ernst, | | | 2019 | | | DO [address] | | | | | | [place] [address] | | | | | | [phone] | | | | | | | | | | | | Julia Fisher, | | | | | | PT | | +--------+ + + + + | 02/18/ | Appointment | Rehabilitation | Erika Ernst, | | 2019 | | | DO [address] [place] | | | | | | [place] [address] | | | | | | [phone] | | | | | | | | | | | | Genesis Ayon, SUSAN | | +--------+ + + + + | 02/25/ | Office | Primary Care | Erika Ernst, | | | 2019 | Visit | | DO [address] [place] [address] | | | | | | [place] [address] | | | | | | [phone] | | | | | | | [...] | | | | | [place] [address] | | | | | | [phone] | | | | | | | | +--------+ + + + + | 02/27/ | Appointment | Radiology | Dhara, | | | 2019 | | | [address]WA[address] | | | | | [address] [place], | | | | | | [place] [address] | | | | | | [phone] | | | | | | | [...] | | | | | [place] [address] | | | | | | [phone] | | | | | | | [...] [place] | | | | | | [address] | | | | | | [phone] | | | | | | | [...] | | | | | [place] [address] | | | | | | [phone] | | | | | | | | | | | | Azul Yeboah, | | | | | | MD [address] | | | | | | [place] | | | | | | [place] [address] | | | | | | [phone] | | | | | | | [...] | | | | | | [place] [address] | | | | | | [phone] | | | | | | | | +--------+ + + + + + + +--------+ + + | Name | Type | Priori | Associated Diagnoses | Order Schedule | | | | ty | | | + + +--------+ + + | ENT, External - AMB | Outpatient | Routin | Asthma due to | Ordered: 08/30/2018 | | Referral | Referral | e | environmental | | | | | | allergies | | + + +--------+ + + documented as of this encounter Visit Diagnoses + + | Diagnosis | + + | Essential hypertension - Primary Unspecified essential hypertension | + + | Anxiety Anxiety state, unspecified | + + | Depression, unspecified depression type | + + | PTSD (post-traumatic stress disorder) Posttraumatic stress disorder | + + | Asthma due to environmental allergies | + + | Oral thrush Candidiasis of mouth | + + documented in this encounter
--- OUTSIDE RECORDS SUMMARY | ~2020-02-18 | XMS | Encounter Summary ---
Demographics + + + | Address | [address] | | | [place] [address] | + + + | Home Phone [...] Team Providers + +------+ + | Care Tents Assembler Name | Role | Phone | [...] Refill | | 2018 | | [facility] | [address] | | | | | MEDICAL CLIN[facility] [address] | [place] [address] | | | | | [address] [place], | [phone] | | | | | [place] [address] | | | | | | [phone] | | | +--------+ + + + [...] | | | | | [place] [address] | | | | | | [phone] | | | | | | | | | | | | Julia Fisher, | | | | | | PT | | +--------+ + + + + | 02/18/ | Appointment | Rehabilitation | Erika Enrst, | | | 2019 | | | DO [address] | | | | | | [place] [address] | | | | | | [phone] | | | | | | | | | | | | Genesis Ayon OT | | +--------+ + + + + | 02/25/ | Office | Primary Care | Erika Ernst, | | | 2019 | Visit | | DO [address] [place] | | | | | | [place] [address] | | | | | | [phone] | | | | | | | [...] | | | | | [place] [address] | | | | | | [phone] | | | | | | | | +--------+ + + + + | 02/27/ | Appointment | Radiology | Dhara, | | | 2019 | | | [address] | | | | | | [address] [facility], | | | | | | [place] [address] | | | | | | [phone] | | | | | | | [...] | | | | | [place] [address] | | | | | | [phone] | | | | | | | [...] [place] | | | | | | [address] | | | | | | [phone] | | | | | | | [...] | | | | | [place] [address] | | | | | | [phone] | | | | | | | | | | | | Azul Yeboah, | | | | | | MD [address] | | | | | | [place] | | | | | | [place] [address] | | | | | | [phone] | | | | | | | [...] | | | | | | [place] [address] | | | | | | [phone] | | | | | | | | +--------+ + + + + documented as of this encounter Visit Diagnoses Not on filedocumented in this encounter"
--- OUTSIDE RECORDS SUMMARY | ~2020-02-18 | XMS | Encounter Summary ---
Demographics + + + | Address | [address] | | | [place] [address] | + + + | Home Phone [...] Team Providers + +------+ + | Care Survey Technologist Name | Role | Phone | + +------+ + | Erika Ernst DO | PCP | | + +------+ + Reason for Visit Evaluate & Treat (Urgent) + +--------+ + + + + | Status | Reason | Specialty | Diagnoses / | Referred By | Referred To | | | | | Procedures | Contact | Contact | + +--------+ + + + + | Authorizatio | | Rehabilitatio | Diagnoses | Klever, | Cc Wgr | | n not | | n | Sprain of | Erika A, DO | Therapy Pt | | Required | | | deltoid | [address] | [address] | | | | | ligament of | [place], | | | | | right ankle, | [place] [address] | [place] [address] | | | | | subsequent | Phone: | Phone: | | | | | encounter | [phone] | [phone] | | | | | Procedures | Fax: | Fax: | | | | | PT TREAT | [phone] | [phone] | + +--------+ + + + + Encounter Details +--------+ + + + + | Date | Type | Department | Care Team | Description | +--------+ + + + + | 12/24/ | Hospital | [facility] [facility] | Erika Ernst, | Sprain of deltoid | | 2019 | Encounter | HOSPITAL THERAPY PT | DO [address] [place] | ligament of right | | | | [address] [place] | [place] [address] | ankle, subsequent | | | | [place], [place] | [phone] | encounter (Primary | | | | [address] | | Dx) | | | | [phone] | Julia Peña, | | | | | | ELECTRICAL INTEGRATOR | | +--------+ + + + + [...] Inhale 1-2 | 120 | 0 | 03/20/20 | | | mL nebulizer | treatments [...] mcg daily | 90 | 3 | /20 | | | (SYNTHROID) 50 mcg | [...] tablet by | 180 | 0 | //20 | | | (ANTIVERT) 25 mg | [...] puffs into | 3 | 0 | 03/20/20 | | | MCG/ACT inhaler | the lungs 2 times | Inhaler | | 20 | | | | daily. | | | | | + + + +---------+ + + | SPIRIVA RESPIMAT | Inhale 2 puffs into | | 0 | 03/16/20 | | | 1.25 MCG/ACT inhaler | [...] fluconazole | Daily X 3 days | 1 | 1 | 12/25/19 | | | (DIFLUCAN) 150 mg | [...] of this encounter Progress Notes Julia Peña, ELECTRICAL INTEGRATOR - 12/25/2019 1:00 PM PDTFormatting of this note might be differen t from the original. [facility] THERAPY PT [address] [place] [address] Physical Therapy Daily Treatment Note Date: 12/25/2019 Patient Information Patient Name: Andrea Suh Date of : 1990 Age: 29 y.o. Encounter Diagnoses Code Name Primary? S93.421D Sprain of deltoid ligament of right ankle, subsequent encounter Yes Date of Onset: 05/21/2019 Referring Provider: Erika Ernst DO Objective Pain Assessment: Pain Rating Pre Assessment: 2 Pain Rating During Assessment: 3 Pain Rating Post Assessment: 2 Location: B ankles, knee pain Pain/Comfort Presence Of Pain: complains of pain/discomfort Today's Treatment Patient Name: Andrea Suh/: 1990/ Start Time: 101 Stop time: 145 Duration: 44 minutes Timed Treatment Codes: 44 minutes # of PT Visits to Date: 4 Visit Summary: S:Pt states ankles feel about the same, knee has increased pain due to a fal l and progressing running program. A:pt tolerated session well with ankle discomfort at end of session with SL TE on Airex pad! pt had limited DF in hanging calf raises. Next Visit Information: Short foot/intrinsics, progress general ankle/foot strengthening, S TM, GT Patient/Caregiver Education Learner: Patient Readiness: Acceptance Method: Explanation Response: Verbalizes Understanding Therapy Interventions HEP: Calf raises with post tib bias, self STM with tennis ball, standing calf strentch, big toe disassication exercises. hanging calf raises PT INTERVENTION 1: TE 44min) Calf raises with post tib bias,Baps board #3 lateral, DF/PF, C W and CWW 30 each, Airex pad balance in // bars narrow EO, EC, SL stance B 30 sec x2, Nustep 10 mins level 3 LE only. standing calf stretch leans, standing wall calf stretch. SL stance with piallor twists YTB 30 each Assessment Rehabilitation potential: Patient demonstrates good potential to achieve established goals to address the documented impairments by participating in skilled physical therapy services. Goals: Electronically signed by: Julia Peña PTA, 12/25/2019 2:53 PM Patient Name: Andrea Suh/: 1990/ documented in [...] | | | | | [place] [address] | | | | | | [phone] | | | | | | | | | | | | Julia Fisher, | | | | | | PT | | +--------+ + + + + | 02/18/ | Appointment | Rehabilitation | Erika Ernst, | | | 2019 | | | DO [address] [place] | | | | | | [place] [address] | | | | | | [phone] | | | | | | | | | | | | [facility] OT | | +--------+ + + + + | 02/25/ | Office | Primary Care | Erika Ernst, | | | 2019 | Visit | | DO [address] [place] | | | | | | [place] [address] | | | | | | [phone] | | | | | | | [...] | | | | | [place] [address] | | | | | | [phone] | | | | | | | | +--------+ + + + + | 02/27/ | Appointment | Radiology | Dhara, | | | 2019 | | | [address] | | | | | | 4TH [facility], | | | | | | [place] [address] | | | | | | [phone] | | | | | | | [...] [place] | | | | | | [place] [address] | | | | | | [phone] | | | | | | | [...] [place] | | | | | | [address] | | | | | | [phone] | | | | | | | [...] | | | | | [place] [address] | | | | | | [phone] | | | | | | | | | | | | Azul Yeboah, | | | | | | MD [address] | | | | | | [place] | | | | | | [place] [address] | | | | | | [phone] | | | | | | | [...] | | | | | [address] [facility] [place], | | | | | | [place] [address] | | | | | | [phone] | | | | | | | | +--------+ + + + + documented as of this encounter Visit Diagnoses + + | Diagnosis | + + | Sprain of deltoid ligament of right ankle, subsequent encounter - Primary | + + documented in this encounter"
--- OUTSIDE RECORDS SUMMARY | ~2020-02-18 | XMS | Encounter Summary ---
Demographics + + + | Address | [address] | | | [place] [address] | + + + | Home Phone [...] Team Providers + +------+ + | Care Time Buyer Name | Role | Phone | [...] | +--------+ + + + + | 07/30/ | Telephone | [place] [facility] | Alena Mehta | Other | | 2018 | | [facility] | BAKARI Chapin | | | | | [address] | | | | | | [place] | | | | | | [address] | | | | | | [phone] | | | +--------+ + + + [...] | | | | | [place] [address] | | | | | | [phone] | | | | | | | | | | | | Julia Fisher, | | | | | | PT | | +--------+ + + + + | 02/18/ | Appointment | Rehabilitation | Erika Ernst, | | | 2019 | | | DO [address] [place] | | | | | | [place] [address] | | | | | | [phone] | | | | | | | | | | | | [facility] | | +--------+ + + + + | 02/25/ | Office | Primary Care | Erika Ernst, | | | 2019 | Visit | | DO [address] [place] | | | | | | [place] [address] | | | | | | [phone] | | | | | | | | +--------+ + + + + | 02/25/ | Appointment | Rehabilitation | [facility] OT | | | 2019 | | | | | +--------+ + + + + | 02/26/ | Virtual | Rehabilitation | sUha Rodriguez | | | 2019 | Office | | MD Precious [address] | | | | Visit | | [address] [place] | | | | | | [place] [address] | | | | | | [phone] | | | | | | | | +--------+ + + + + | 02/27/ | Appointment | Radiology | Dhara, | | | 2019 | | | [address] | | | | | | 4TH [facility], | | | | | | [place] [address] | | | | | | [phone] | | | | | | | [...] | | | | | [place] [address] | | | | | | [phone] | | | | | | | [...] [place] | | | | | | [address] | | | | | | [phone] | | | | | | | [...] | | | | | [place] [address] | | | | | | [phone] | | | | | | | | | | | | Azul Yeboah, | | | | | | MD [address] | | | | | | [place] | | | | | | [place] [address] | | | | | | [phone] | | | | | | | [...] | | | | | | [place] [address] | | | | | | [phone] | | | | | | | | +--------+ + + + + documented as of this encounter Visit Diagnoses Not on filedocumented in this encounter"
--- OUTSIDE RECORDS SUMMARY | ~2020-02-18 | XMS | Encounter Summary ---
Demographics + + + | Address | [address] | | | [place] [address] | + + + | Home Phone [...] Providers + +------+ + | Care Hotel Attendant Name | Role | Phone | [...] 01/02/ | Telephone | [place] [facility] | Keith Ernsta Joie, | Results | | 2019 | | [facility] | DO [address] | | | | | [facility] [address] | [place] [address] | | | | | [address] [place], | [phone] | | | | | [place] [address] | | | | | | [phone] | | | +--------+ + + + [...] | 2019 | | | DO [facility] | | | | | | [place] [address] | | | | | | [phone] | | | | | | | | | | | | Julia Fisher, | | | | | | PT | | +--------+ + + + + | 02/18/ | Appointment | Rehabilitation | Erika Ernst, | | | 2019 | | | DO [address] [place] | | | | | | [place] [address] | | | | | | [phone] | | | | | | | | | | | | [facility] OT | | +--------+ + + + + | 02/25/ | Office | Primary Care | Erika Ernst, | | | 2019 | Visit | | DO [address] [place] | | | | | | [place] [address] | | | | | | [phone] | | | | | | | [...] | | | | | [place] [address] | | | | | | [phone] | | | | | | | | +--------+ + + + + | 02/27/ | Appointment | Radiology | Dhara, | | | 2019 | | | [address] | | | | | [address] [place], | | | | | | [place] [address] | | | | | | [phone] | | | | | | | [...] | | | | | [place] [address] | | | | | | [phone] | | | | | | | [...] [place] | | | | | | [address] | | | | | | [phone] | | | | | | | [...] | | | | | [place] [address] | | | | | | [phone] | | | | | | | | | | | | Azul Yeboah, | | | | | | MD [address] | | | | | | [place] | | | | | | [place] [address] | | | | | | [phone] | | | | | | | [...] | | | | | | [place] [address] | | | | | | [phone] | | | | | | | | +--------+ + + + + documented as of this encounter Visit Diagnoses Not on filedocumented in this encounter"
--- OUTSIDE RECORDS SUMMARY | ~2020-02-18 | XMS | Encounter Summary ---
Demographics + + + | Address | [address] | | | [place] [address] | + + + | Home Phone [...] Team Providers + +------+ + | Care Hide Mill Worker Name | Role | Phone | [...] | [facility] [address] | [place] [address] | due to | | | | [address] [place], | [phone] | environmental | | | | [place] [address] | | allergies | | | | [phone] | | | +--------+---------+ + + + [...] not enough. We do not do chronic director long term care pain meds in this clinic but can [...] | | | DO [address] [place] | | | | | | [place] [address] | | | | | | [phone] | | | | | | | | | | | | Julia Fisher, | | | | | | PT | | +--------+ + + + + | 02/18/ | Appointment | Rehabilitation | Erika Ernst, | | | 2019 | | | DO [address] [place] | | | | | | [place] [address] | | | | | | [phone] | | | | | | | | | | | | [facility] | | +--------+ + + + + | 02/25/ | Office | Primary Care | Erika Ernst, | | | 2019 | Visit | | DO [address] [place] | | | | | | [place] [address] | | | | | | [phone] | | | | | | | [...] | | | | | [place] [address] | | | | | | [phone] | | | | | | | | +--------+ + + + + | 02/27/ | Appointment | Radiology | Dhara, | | | 2019 | | | [address] | | | | | | [facility]TH [facility], | | | | | | [place] [address] | | | | | | [phone] | | | | | | | [...] [place] | | | | | | [place] [address] | | | | | | [phone] | | | | | | | [...] [place] | | | | | | [address] | | | | | | [phone] | | | | | | | [...] | | | | | [place] [address] | | | | | | [phone] | | | | | | | | | | | | Azul Yeboah, | | | | | | MD [address] | | | | | | [place] | | | | | | [place] [address] | | | | | | [phone] | | | | | | | | +--------+ + + + + | 04/08/ | Appointment | Nutrition | Janel Webster | | | 2019 | | | [place], [place] | | +--------+ + + + + | 05/21/ | Office | Neurology | Dhara, | | | 2019 | Visit | | [address] | | | | | | 4TH [facility] [place], | | | | | | [place] [address] | | | | | | [phone] | | | | | | | | +--------+ + + + + documented as of this encounter Visit Diagnoses + + | Diagnosis | + + | Right wrist pain - Primary Pain in joint, forearm | + + | Asthma due to environmental allergies | + + documented in this encounter
--- OUTSIDE RECORDS SUMMARY | ~2020-02-18 | XMS | Encounter Summary ---
Demographics + + + | Address | [address] | | | [place] [address] | + + + | Home Phone [...] Team Providers + +------+ + | Care Plywood Matcher Name | Role | Phone | + +------+ + PCP | Unavailable | + +------+ + Encounter Details +--------+ + + + + | Date | Type | Department | Care Team | Description | +--------+ + + + + | 08/06/ | [facility] | Caro Zendejas | | | 2012 | Encounter | [facility] | Vale, HOME HEALTH OCCUPATIONAL THERAPIST [address] | | | | | MEDICAL [facility] [address] | [facility], [place] | | | | | [address]TH [facility], | [address] | | | | | [place] [address] | [phone] | | | | | [phone] | | | +--------+ + + + [...] | | | | | [place] [address] | | | | | | [phone] | | | | | | | | | | | | Julia Fisher, | | | | | | PT | | +--------+ + + + + | 02/18/ | Appointment | Rehabilitation | Erika Ernst, | | | 2019 | | | DO [address] [place] | | | | | | [place] [address] | | | | | | [phone] | | | | | | | | | | | | Genesis Ayon, OT | | +--------+ + + + + | 02/25/ | Office | Primary Care | Erika Ernst, | | | 2019 | Visit | | DO [address] [place] | | | | | | [place] [address] | | | | | | [phone] | | | | | | | [...] [place] | | | | | | [place] [address] | | | | | | [phone] | | | | | | | | +--------+ + + + + | 02/27/ | Appointment | Radiology | Dhara, | | | 2019 | | | [address] | | | | | | 4[address] [facility], | | | | | | [place] [address] | | | | | | [phone] | | | | | | | | +--------+ + + + + | 03/04/ | Appointment | Rehabilitation | Genesis Ayon OT | | | 2019 | | | | | +--------+ + + + + | 03/09/ | Office | Orthopedic Surgery | Jeffrey Gandhi, | | | 2019 | Visit | | [address] | | | | | | [place] [address] | | | | | | [phone] | | | | | | | [...] [place] | | | | | | [address] | | | | | | [phone] | | | | | | | [...] | | | | | [place] [address] | | | | | | [phone] | | | | | | | | | | | | Azul Yeboah, | | | | | | MD [address] | | | | | | [place] | | | | | | [place] [address] | | | | | | [phone] | | | | | | | | +--------+ + + + + | 04/08/ | Appointment | Nutrition | Jaenl Webster | | | 2019 | | | [place], [place] | | +--------+ + + + + | 05/21/ | Office | Neurology | Dhara, | | | 2020 | Visit | | [address] | | | | | [address] [place], | | | | | | [place] [address] | | | | | | [phone] | | | | | | | | +--------+ + + + + documented as of this encounter Visit Diagnoses Not on filedocumented in this encounter"
--- OUTSIDE RECORDS SUMMARY | ~2020-02-18 | XMS | Encounter Summary ---
Demographics + + + | Address | [address] | | | [place] [address] | + + + | Home Phone [...] Team Providers + +------+ + | Care Wardrobe Manager Name | Role | Phone | [...] [place], [place] | | | | | [address] | [address] | | | | | [phone] | [phone] | | | | | | | [...] | 04/12/20 | | | (VITAMIN D3) 73[address] | mouth Once a week | tablet [...] | | | | | [place] [address] | | | | | | [phone] | | | | | | | | | | | | Julia Fisher, | | | | | | PT | | +--------+ + + + + | 02/18/ | Appointment | Rehabilitation | Erika Ernst, | | | 2019 | | | DO [address] [place] | | | | | | [place] [address] | | | | | | [phone] | | | | | | | | | | | | [facility] | | +--------+ + + + + | 02/25/ | Office | Primary Care | Erika Ernst, | | | 2019 | Visit | | [address] [place] [address] | | | | | | [place] [address] | | | | | | [phone] | | | | | | | [...] | | | | | [place] [address] | | | | | | [phone] | | | | | | | | +--------+ + + + + | 02/27/ | Appointment | Radiology | Dhara, | | | 2019 | | | [address] | | | | | | [address] [place], | | | | | | [place] [address] | | | | | | [phone] | | | | | | | | +--------+ + + + + | 03/04/ | Appointment | Rehabilitation | Genesis Ayon OT | | | 2019 | | | | | +--------+ + + + + | 03/09/ | Office | Orthopedic Surgery | Jeffrey Gandhi, | | | 2019 | Visit | | [address] | | | | | | [place] [address] | | | | | | [phone] | | | | | | | [...] [place] | | | | | | [address] | | | | | | [phone] | | | | | | | [...] | | | | | [place] [address] | | | | | | [phone] | | | | | | | | | | | | Azul Yeboah, | | | | | | [address] | | | | | | [place] | | | | | | [place] [address] | | | | | | [phone] | | | | | | | [...] | | | | | | [place] [address] | | | | | | [phone] | | | | | | | [...]
--- OUTSIDE RECORDS SUMMARY | ~2020-02-18 | XMS | Encounter Summary ---
Demographics + + + | Address | [address] | | | [place] [address] | + + + | Home Phone [...] Team Providers + +------+ + | Care Fund Director Name | Role | Phone | [...] | +--------+ + + + + | 01/11/ | Telephone | [facility] | Maryse Langford | Results, Imaging | | 2020 | | [facility] | DWAINE Huynh | | | | | [facility] [address] | [address] [facility] | | | | | 4TH [facility], | [place] [address] | | | | | [place] [address] | [phone] | | | | | [phone] | | | +--------+ + + + [...] | | | | | [place] [address] | | | | | | [phone] | | | | | | | | | | | | Julia Fisher, | | | | | | PT | | +--------+ + + + + | 02/18/ | Appointment | Rehabilitation | Erika Ernst, | | | 2019 | | | DO [address] [place] | | | | | | [place] [address] | | | | | | [phone] | | | | | | | | | | | | [facility] OT | | +--------+ + + + + | 02/25/ | Office | Primary Care | Erika Ernst, | | | 2019 | Visit | | DO [address] [place] | | | | | | [place] [address] | | | | | | [phone] | | | | | | | [...] | | | | | [place] [address] | | | | | | [phone] | | | | | | | | +--------+ + + + + | 02/27/ | Appointment | Radiology | Dhara, | | | 2019 | | | [address] | | | | | | [address] [place], | | | | | | [place] [address] | | | | | | [phone] | | | | | | | [...] [place] | | | | | | [place] [address] | | | | | | [phone] | | | | | | | [...] [place] | | | | | | [address] | | | | | | [phone] | | | | | | | [...] | | | | | [place] [address] | | | | | | [phone] | | | | | | | | | | | | Azul Yeboah, | | | | | | MD [address] | | | | | | [place] | | | | | | [place] [address] | | | | | | [phone] | | | | | | | [...] | | | | | | [place] [address] | | | | | | [phone] | | | | | | | | +--------+ + + + + documented as of this encounter Visit Diagnoses Not on filedocumented in this encounter"
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
--- OUTSIDE RECORDS SUMMARY | ~2020-02-18 | XMS | Encounter Summary ---
Demographics + + + | Address | [address] | | | [place] [address] | + + + | Home Phone [...] Team Providers + +------+ + | Care Roustabout Pusher Name | Role | Phone | + +------+ + PCP | Unavailable | + +------+ + Encounter Details +--------+ + + + + | Date | Type | Department | Care Team | Description | +--------+ + + + + | 12/19/ | [facility] | [facility] | Erika Ernst, | | | 2016 | Encounter | [facility] | DO [address] | | | | | MEDICAL CL[facility] [address] | [place] [place] [address] | | | | | [address] [place], | [phone] | | | | | [place] [address] | | | | | | [phone] | | | +--------+ + + + [...] | | | | | [place] [address] | | | | | | [phone] | | | | | | | | | | | | Julia Fisher, | | | | | | PT | | +--------+ + + + + | 02/18/ | Appointment | Rehabilitation | Erika Ernst, | | | 2019 | | | DO [address] [place] | | | | | | [place] [address] | | | | | | [phone] | | | | | | | | | | | | Genesis Ayon, SUSAN | | +--------+ + + + + | 02/25/ | Office | Primary Care | Erika Ernst, | | | 2019 | Visit | | DO [address] [place] [address] | | | | | | [place] [address] | | | | | | [phone] | | | | | | | [...] | | | | | [place] [address] | | | | | | [phone] | | | | | | | | +--------+ + + + + | 02/27/ | Appointment | Radiology | Dhara, | | | 2019 | | | DWAINE Ross [address] [place], | | | | | | [place] [address] | | | | | | [phone] | | | | | | | [...] [place] | | | | | | [place] [address] | | | | | | [phone] | | | | | | | [...] [place] | | | | | | [address] | | | | | | [phone] | | | | | | | [...] | | | | | [place] [address] | | | | | | [phone] | | | | | | | | | | | | Azul Yeboah, | | | | | | MD [address] | | | | | | [place] | | | | | | [place] [address] | | | | | | [phone] | | | | | | | [...] | | | | | | [place] [address] | | | | | | [phone] | | | | | | | | +--------+ + + + + documented as of this encounter Visit Diagnoses Not on filedocumented in this encounter"
--- OUTSIDE RECORDS SUMMARY | ~2020-02-18 | XMS | Encounter Summary ---
Demographics + + + | Address | [address] | | | [place] [address] | + + + | Home Phone [...] Providers + +------+ + | Care General Warehouse Associate Name | Role | Phone | [...] | | | | s (de | [place], [place] | [place] [address] | | | | | quervain) | [address] | Phone: | | | | | Pain in | Phone: | [phone] | | | | | right wrist | [phone] | Fax: | | | | | Procedures | Fax: | [phone] | | | | | OT TREAT | [phone] | | +--------+--------+ + + + + [...] | | [address] [place] | [place] [address] | (Primary Dx); Right | | | | [place], [place] | [phone] | wrist pain | | | | [address] | | | | | | [phone] | Michela Azevedo, | | | | [...] might be different f rom the original. [facility] [address] [place] [address] Occupational Therapy Daily Treatment Note Date: 11/23/2018 [...] response to last session Interventions HEP : herb doctor strengthening to pink tputty, added submaximal 4 [...] wrist but continues to have right wrist, herb doctor and pinch weakness and significant pain (3 [...] in 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, and herb doctor and pinch weakness in the right hand [...] | | | | | [place] [address] | | | | | | [phone] | | | | | | | | | | | | Julia Fisher, | | | | | | PT | | +--------+ + + + + | 02/18/ | Appointment | Rehabilitation | Erika Ernst, | | | 2019 | | | DO [address] [place] | | | | | | [place] [address] | | | | | | [phone] | | | | | | | | | | | | Genesis Ayon OT | | +--------+ + + + + | 02/25/ | Office | Primary Care | rEika Ernst, | | | 2019 | Visit | | DO [address] [place] [address] | | | | | | [place] [address] | | | | | | [phone] | | | | | | | [...] | | | | | [place] [address] | | | | | | [phone] | | | | | | | | +--------+ + + + + | 02/27/ | Appointment | Radiology | Dhara, | | | 2019 | | | DWAINE Ross [address] | | [address] [place], | | | | | | [place] [address] | | | | | | [phone] | | | | | | | | +--------+ + + + + | 03/04/ | Appointment | Rehabilitation | Genesis Ayon OT | | | 2019 | | | | | +--------+ + + + + | 03/09/ | Office | Orthopedic Surgery | Jeffrey Gandhi, | | | 2019 | Visit | | [address] | | | | | | [place] [address] | | | | | | [phone] | | | | | | | | +--------+ + + + + | 03/11/ | Appointment | Rehabilitation | Gneesis Ayon [...] [place] | | | | | | [address] | | | | | | [phone] | | | | | | | [...] | | | | | [place] [address] | | | | | | [phone] | | | | | | | | | | | | Azul Yeboah, | | | | | | [address] | | | | | | [place] | | | | | | [place] [address] | | | | | | [phone] | | | | | | | [...] | | | | | | [place] [address] | | | | | | [phone] | | | | | | | | +--------+ + + + + documented as of this encounter Visit Diagnoses + + | Diagnosis | + + | Radial styloid tenosynovitis - Primary | + + | Right wrist pain Pain in joint, forearm | + + documented in this encounter
--- OUTSIDE RECORDS SUMMARY | ~2020-02-18 | XMS | Encounter Summary ---
Demographics + + + | Address | [address] | | | [place] [address] | + + + | Home Phone [...] + + + + | 05/06/ | [facility] | [place] [facility] | [place], | Asthma, unspecified | | 2019 | Encounter | [facility] XRAY [address] | [place] [address] | asthma severity, | | | | [address] [place] | [place] | unspecified whether | | | | [place] | [place] [address] | complicated, | | | | [address] | | unspecified whether | | | | [phone] | (Fax) | persistent | +--------+ + [...] | 04/12/20 | | | (VITAMIN D3) 26612 | mouth Once a week | tablet [...] | | | | | [place] [address] | | | | | | [phone] | | | | | | | | | | | | Julia Fisher, | | | | | | PT | | +--------+ + + + + | 02/18/ | Appointment | Rehabilitation | Erika Ernst, | | | 2019 | | | DO [address] [place] | | | | | | [place] [address] | | | | | | [phone] | | | | | | | | | | | | Genesis Ayon OT | | +--------+ + + + + | 02/25/ | Office | Primary Care | Erika Ernst, | | | 2019 | Visit | | DO [address] [place] | | | | | | [place] [address] | | | | | | [phone] | | | | | | | [...] | | | | | [place] [address] | | | | | | [phone] | | | | | | | | +--------+ + + + + | 02/27/ | Appointment | Radiology | Dhara, | | | 2019 | | | DWAINE Ross [address] [place], | | | | | | [place] [address] | | | | | | [phone] | | | | | | | [...] [place] | | | | | | [place] [address] | | | | | | [phone] | | | | | | | [...] [place] | | | | | | [address] | | | | | | [phone] | | | | | | | [...] | | | | | [place] [address] | | | | | | [phone] | | | | | | | | | | | | Azul Yeboah, | | | | | | [address] | | | | | | [place] | | | | | | [place] [address] | | | | | | [phone] | | | | | | | [...] | | | | | | [place] [address] | | | | | | [phone] | | | | | | | [...]
--- OUTSIDE RECORDS SUMMARY | ~2020-02-18 | XMS | Encounter Summary ---
Demographics + + + | Address | [address] | | | [place] [address] | + + + | Home Phone [...] Team Providers + +------+ + | Care Beer Cooler Name | Role | Phone | + +------+ + | Erika Ernst DO | PCP | | + +------+ + Reason for Visit +--------+ + | Reason | Comments | +--------+ + | Nausea | | +--------+ + Encounter Details +--------+ + + + + | Date | Type | Department | Care Team | Description | +--------+ + + + + | 08/22/ | Emergency | [facility] | Denis Araya, | Acute cystitis | | 2019 | | [facility] | [employer] [address] | without hematuria | | | | CENTER [address] | [place] | (Primary Dx); | | | | [place] | [address] | Vomiting, | | | | [address] | | intractability of | | | | [phone] | | vomiting not | | | | | | specified, presence | | | | | | of nausea not | | | | | | specified, | | | | | | unspecified vomiting | | | | | | type [...] + + + | Blood Pressure | 150/109 | 08/22/2019 9:00 PM | | | | | PST | | + + + + + | Pulse | 66 | 08/22/2019 9:15 PM | | | | | PST | | + + + + + | Temperature | 36.3 C (97.3 F) | 08/22/2019 5:41 PM | | | | | PST | | + + + + + | Respiratory Rate | 14 | 08/22/2019 5:41 PM | | | | | PST | | + + + + + | Oxygen Saturation | 100% | 08/22/2019 9:15 PM | | | | | PST | | + + + + + | Inhaled Oxygen | - | - | | | Concentration | | | | + + + + + | Weight | 170.1 kg (375 lb) | 08/22/2019 5:41 PM | | | | | PST | | + + + + + | Height | 177.8 cm (5' 10") | 08/22/2019 5:41 PM | | | | | PST | | + + + + + | Body Mass Index | 53.81 | 08/22/2019 5:41 PM | | | | | PST | | + + + + + documented in this encounter Discharge Instructions Instructions Denis Araya NP - 08/22/2019Macrobid 100 mg orally twice daily for 5 days . Zofran 4 mg ODT every 8 hours as needed for nausea/vomiting. Wipe front to back Follow up with primary care provider if no improvement or worsening after 72 hours of antib iotic treatment. AttachmentsThe following attachments cannot be sent through Care Everywhere.Urinary Tract I nfections (UTIs), Understanding (Sami)documented in this encounter Medications at Time [...] treatments in | | | 19 | 0 | | solution | nebulizer [...] | | | | 9 | | (NENO ELLIPTA IN) | | [...] nitrofurantoin | Take 1 capsule by | 8 | 0 | 08/22/20 | | | (MACROBID) 100 mg | mouth 2 times daily | capsule | | 19 | 9 | | capsuleIndications: | for 4 days. | | | | | | Uncomplicated | Indications: Simple | | | | | | Urinary Tract | Infection of the | | | | | | Infection | Urinary Tract | | | | | + + + +---------+ + + | ondansetron | Take 1 tablet by | 9 | 0 | 08/22/20 | | | (ZOFRAN ODT) 4 mg | mouth every 8 hours | tablet | | 19 | 9 | | disintegrating | as needed for Nausea | | | | | | tablet | for up to 3 days. | | | | | + [...] | | | | | [place] [address] | | | | | | [phone] | | | | | | | | | | | | Julia Fisher, | | | | | | PT | | +--------+ + + + + | 02/18/ | Appointment | Rehabilitation | Erika Ernst, | | | 2019 | | | DO [address] | | | | | | [place] [address] | | | | | | [phone] | | | | | | | | | | | | Genesis Ayon, OT | | +--------+ + + + + | 02/25/ | Office | Primary Care | Erika Ernst, | | | 2019 | Visit | | DO [address] | | | | | | [place] [address] | | | | | | [phone] | | | | | | | [...] | | | | | [place] [address] | | | | | | [phone] | | | | | | | | +--------+ + + + + | 02/27/ | Appointment | Radiology | Dhara, | | | 2019 | | | [address] | | | | | | [facility], | | | | | | [place] [address] | | | | | | [phone] | | | | | | | | +--------+ + + + + | 03/04/ | Appointment | Rehabilitation | Genesis Ayon OT | | | 2019 | | | | | +--------+ + + + + | 03/09/ | Office | Orthopedic Surgery | Jeffrey Gandhi, | | | 2019 | Visit | | [address] [facility] | | | | | | [place] [address] | | | | | | [phone] | | | | | | | [...] [place] | | | | | | [address] | | | | | | [phone] | | | | | | | [...] | | | | | [place] [address] | | | | | | [phone] | | | | | | | | | | | | Azul Yeboah, | | | | | | MD [address] | | | | | | [place] | | | | | | [place] [address] | | | | | | [phone] | | | | | | | | +--------+ + + + + | 04/08/ | Appointment | Nutrition | Janel Webster | | | 2019 | | | [place] | | +--------+ + + + + | 05/21/ | Office | Neurology | Dhara, | | | 2020 | Visit | | [address] | | | | | | [facility], | | | | | | [place] [address] | | | | | | [phone] | | | | | | | | +--------+ + + + + + +------+--------+ + + | Name | Type | Priori | Associated Diagnoses | Date/Time | | | | ty | | | + +------+--------+ + + | ED INFORMATION | YARITZA | Routin | | 08/22/2019 5:30 PM | | EXCHANGE | | e | | PST | + +------+--------+ + + documented as of this encounter Procedures + +--------+ + + + | Procedure Name | Priori | Date/Time | Associated Diagnosis | Comments | | | ty | | | | + +--------+ + + + | URINALYSIS WITH | STAT | 08/22/2019 | | Results for this | | MICROSCOPIC WITH | | 7:52 PM | | procedure are in the | | CULTURE IF INDICATED | | PST | | results section. | + +--------+ + + + | CULTURE, URINE | Routin | 08/22/2019 | | Results for this | | | e | 7:52 PM | | procedure are in the | | | | PST | | results section. | + +--------+ + + + | CBC WITH | STAT | 08/22/2019 | | Results for this | | DIFFERENTIAL | | 6:33 PM | | procedure are in the | | | | PST | | results section. | + +--------+ + + + | , SERUM, | Add-On | 08/22/2019 | | Results for this | | QUAL | | 6:33 PM | | procedure are in the | | | | PST | | results section. | + +--------+ + + + | LIPASE | STAT | 08/22/2019 | | Results for this | | | | 6:33 PM | | procedure are in the | | | | PST | | results section. | + +--------+ + + + | COMPREHENSIVE | STAT | 08/22/2019 | | Results for this | | METABOLIC PANEL | | 6:33 PM | | procedure are in the | | | | PST | | results section. | + +--------+ + + + documented in this encounter Results Culture, Urine (08/22/2019 7:52 PM PST) + + + + + + | Component | Value | Ref Range | Performed | Pathologist | | | | | At | Signature | + + + + + + | Culture | >100,000 CFU/ml Mixed | | [place] | | | | mart (multiple | | [facility] | | | | morphologies | | HOSPITAL | | | | present)Comment: | | LABORATORY | | | | Suggests contamination | | | | | | with urogenital or skin | | | | | | mart. | | | | + + + [...] + + | [facility] | [address] | [place] | [phone] | | HOSPITAL LAB[facility]ATORY | | [address] | | + + + + + Urinalysis with Microscopic with Culture if Indicated (08/22/2019 7:52 PM PST) + + + + + [...] - 1.030 | [place] | | | [place], | | | [facility] | | | [...] + + + + | Blood, | 25 matt/uL (A) | Negative | [place] | [...] + + + + | Ketones, | 15 mg/dL (A) | Negative | [...] + + + + | Leukocyte | 500 joby/uL (A) | Negative | [place] | [...] + + + | White Blood | 10 - 20 (A) | <=5 /HPF | [place] | [...] + + + + | Bacteria, | Many (A) | None Seen /HPF | [place] [...] + + + + | Hyaline | Few (A) | None Seen /LPF | [place] | | | Casts, | | | [facility] | | | Urine | | | HOSPITAL | | | | | | LABORATORY | | + + + + + + | Urine | Urine Culture Set Up | | [place] | | | Comment | | | [facility] | | | [...] + + | [place] [facility] | [address] | [place] | [phone] | | HOSPITAL LAB[facility]ATORY | | [address] | | + + + + + , Serum, Qual (08/22/2019 6:33 PM PST) + + + + + + | Component | Value | Ref Range | Performed | Pathologist | | | | | At | Signature | + + + + + + | hCG Screen, | Negative | Negative | [place] | | | Serum | [...] + + | [facility] [facility] | [address] | [place] | [phone] | | HOSPITAL LAB[facility]ATORY | | [address] | | + + + + + Lipase (08/22/2019 6:33 PM PST) + +-------+ + + + | Component | Value | Ref Range | Performed | Pathologist | | | | | At | Signature | + +-------+ + + + | Lipase | 83 | 73 - 393 U/L | [place] [...] + + | [facility] | [address] | [place] | [phone] | | HOSPITAL LAB[facility]ATORY | | [address] | | + + + + + Comprehensive Metabolic Panel (08/22/2019 6:33 PM PST) + + + + + [...] + + + + | K | 3.4 | 3.3 - 4.9 | [place] | [...] + + + + | Glucose | 85 | 70 - 110 mg/dL | [place] | | | | | | [facility] | | | | | | [facility] | | | | | | LABORATORY | | + + + + + + | BUN | 12 | 5 - 26 mg/dL | [place] | | | | | | [facility] | | | | | | [facility] | | | | | | LABORATORY | | + + + + + + | Creatinine | 0.82 | 0.60 - 1.30 | [place] | | | | | mg/dL | [facility] | | | | | | [facility] | | | | | | LABORATORY | | + + + + + + | eGFR if not | >60Comment: GLOMERULAR | >=60 | [place] | | | | FILTRATION | mL/min/1.73m2 | [facility] | | | [place] | RATE,ESTIMATED | | HOSPITAL | | | | mL/min/1.62s5Kiyi than | | LABORATORY | | | [...] + + + + | Total | 7.7 | 6.6 - 8.5 g/dL | [place] [...] + + + + | Alkaline | 79 | 46 - 116 U/L | [place] | | | Phosphatase | | | [facility] | | | | | | [facility] | | | | | | LABORATORY | | + + + + + + | Globulin | 3.8 | 2.4 - 4.5 g/dL | [place] [...] + + + + | BUN/Creatin | 14.6 | 7.0 - 24.0 | [place] | [...] + + | [facility] | [address] | [place], [place] | [phone] | | HOSPITAL LAB[facility]ATORY | | [address] | | + + + + + CBC with Differential (08/22/2019 6:33 PM PST) + + + + + + | Component | Value | Ref Range | Performed | Pathologist | | | | | At | Signature | + + + + + + | WBC | 11.3 (H) | 4.3 - 10.4 K/uL | [facility] | | | | | | [facility] | | | | | [facility] | | | | | | LAB[facility]ATORY | | + + + + + + | RBC | 4.43 | 4.12 - 5.30 | [place] | | | | | M/uL | [facility] | | | | | | [facility] | | | | | | LAB[facility]ATORY | | + + + + + + | Hemoglobin | 12.1 (L) | 12.4 - 15.7 | [place] | | | | | g/dL | [facility] | | [facility] | | | [facility] | | | | | | LABORATORY | | + + + + + + | Hematocrit | 37.5 (L) | 37.7 - 47.0 % | [place] | | | | | | [facility] | | | | | | [facility] | | | | | | LABORATORY | | + + + + + + | MCV | 84.7 | 82.0 - 97.0 fL | [place] | | | | | | [facility] | | | | | | [facility] | | | | | | LAB[facility]ATORY | | + + + + + + | MCH | 27.3 | 27.1 - 32.3 pg | [place] | | | | | | [facility] | | | | | | [facility] | | | | | | LAB[facility]ATORY | | + + + + + + | MCHC | 32.3 | 32.0 - 36.9 | [place] | | | | | g/dL | [facility] | | | | | | [facility] | | | | | | LABORATORY | | + + + + + + | RDW-CV | 14.5 | 0.0 - 17.0 % | [place] | | | | | | [facility] | | | | | | [facility] | | | | | | LAB[facility]AT[facility] | | + + + + + + | Platelet | 342 | 150 - 450 K/uL | [facility] | | | Count | | | [facility] | | | | | | [facility] | | | | | | LABORATORY | | + + + + + + | MPV | 10.0 | 9.4 - 12.3 fL | [facility] | | | | | | [facility] | | | | | | [facility] | | | | | | LAB[facility]ATORY | | + + + + + + | % | 60.0 | 42.0 - 76.0 % | [place] | | | Neutrophils | | | [facility] | | | | | | [facility] | | | | | | LAB[facility]ATORY | | + + + + + + | % | 32.6 | 20.0 - 40.0 % | [place] | | | Lymphocytes | | | [facility] | | | | | | [facility] | | | | | | LAB[facility]ATORY | | + + + + + + | % Monocytes | 6.0 | 3.0 - 13.0 % | [facility] | | | | | | [facility] | | | | | | [facility] | | | | | | LAB[facility]ATORY | | + + + + + + | % | 0.5 | 0.0 - 7.0 % | [place] | | | Eosinophils | | | [facility] | | | | | | [facility] | | | | | | LABORATORY | | + + + + + + | % Basophils | 0.5 | 0.0 - 2.0 % | [facility] | | | | | | [facility] | | | | | | [facility] | | | | | | LAB[facility]ATORY | | + + + + + + | % Immature | 0.4 | 0.0 - 0.5 % | [facility] | | | Granulocyte | | | [facility] | | | s | | | HOSPITAL | | | | | | LABORATORY | | + + + + + + | Absolute | 6.77 | 2.50 - 8.50 | [place] | | | Neutrophils | | K/uL | [facility] | | | | | | [facility] | | | | | | LAB[facility]ATORY | | + + + + + + | Absolute | 3.68 | 1.00 - 3.80 | [place] | | | Lymphocytes | | K/uL | [facility] | | | | | | [facility] | | | | | | LAB[facility]ATORY | | + + + + + + | Absolute | 0.68 | 0.00 - 0.80 | [place] | | | Monocytes | | K/uL | [facility] | | | | [facility] | | | | | | LAB[facility]ATORY | | + + + + + + | Absolute | 0.06 | 0.00 - 0.70 | [place] | | | Eosinophils | | K/uL | [facility] | [facility] | | [facility] | | | | | | LAB[facility]ATORY | | + + + + + + | Absolute | 0.06 | 0.00 - 0.20 | [place] | | | Basophils | | K/uL | [facility] | | | | | [facility] | | | | | | LAB[facility]ATORY | | + + + + + + | Absolute | 0.04 | 0.00 - 0.15 | [place] | | | Immature | | K/uL | [facility] | | | Granulocyte | | | HOSPITAL | | | s | | | LABORATORY | | + + + + + + | % nRBC | 0 | <=0 per 100 | [place] | | | | | WBCs | [facility] | | | | | | [facility] | | | | | | LAB[facility]ATORY | | + + + + + + | Absolute | 0.00 | 0.00 - 0.01 | [place] | | | nRBC | | K/uL | [facility] | | [...] + + | [facility] | [address] | [place] | [phone] | | HOSPITAL LAB[facility]ATORY | | [address] | | + + + + + documented in this encounter Visit Diagnoses + + | Diagnosis | + + | Acute cystitis without hematuria - Primary Acute cystitis | + + | Vomiting, intractability of vomiting not specified, presence of nausea not specified, | | unspecified vomiting type | + + documented in this encounter Administered Medications + +---------+ +--------+-------+------+ | Medication Order | MAR | Action | Dose | Rate | Site | | | Action | Date | | | | + +---------+ +--------+-------+------+ | lactated ringers (LR) bolus | New Bag | 08/22/20 | 1,000 | 2000 | | | 1,000 mL 1,000 mL, Intravenous, | | 19 7:32 | mLs | mL/hr | | | Administer over 30 Minutes, ONCE, | | PM PST | | | | | Itzel 08/22/19 at 1915, For 1 dose | | | | | | + +---------+ +--------+-------+------+ +---+---+ | | | +---+---+ + + + +--------+---+---+ | nitrofurantoin (MACROBID) | Dispense | 08/22/20 | 100 mg | | | | capsule (ED prepack) 100 mg 100 | to Home | 19 9:14 | | | | | mg, Oral, 2 TIMES DAILY WITH | | PM PST | | | | | BREAKFAST & DINNER, First dose on | | | | | | | Itzel 08/22/19 at 2115, Dispense | | | | | | | for home use., | | | | | | + + + +--------+---+---+ +---+---+ | | | +---+---+ + + + +------+---+---+ | ondansetron (ZOFRAN ODT) | Dispense | 08/22/20 | 4 mg | | | | disintegrating tablet (ED | to Home | 19 9:14 | | | | | homepack) 4 mg 4 mg, Oral, EVERY | | PM PST | | | | | 6 HOURS PRN, Nausea, Starting | | | | | | | Itzel 08/22/19 at 2051, Dispense | | | | | | | for home use., | | | | | | + + + +------+---+---+ +---+---+ | | | +---+---+ + +-------+ +------+---+---+ | ondansetron (ZOFRAN) injection | Given | 08/22/20 | 8 mg | | | | 8 mg 8 mg, Intravenous, ONCE, | | 19 7:04 | | | | | Itzel 08/22/19 at 1915, For 1 dose | | PM PST | | | | + +-------+ +------+---+---+ +---+---+ | | | +---+---+ documented in this encounter
--- OUTSIDE RECORDS SUMMARY | ~2020-02-18 | XMS | Encounter Summary ---
Demographics + + + | Address | [address] | | | [place] [address] | + + + | Home Phone [...] Providers + +------+ + | Care Production Planner Name | Role | Phone | [...] | [facility] [address] | [place] [address] | | | | [address] [place], | [phone] | | | | | [place] [address] | | | | | | [phone] | | | +--------+ + + + [...] | | | | | [place] [address] | | | | | | [phone] | | | | | | | | | | | | Julia Fisher, | | | | | | PT | | +--------+ + + + + | 02/18/ | Appointment | Rehabilitation | Erika Ernst, | | | 2019 | | | DO [address] | | | | | | [place] [address] | | | | | | [phone] | | | | | | | | | | | | Genesis Ayon OT | | +--------+ + + + + | 02/25/ | Office | Primary Care | Erika Ernst, | | | 2019 | Visit | | DO [address] | | | | | | [place] [address] | | | | | | [phone] | | | | | | | [...] | | | | | [place] [address] | | | | | | [phone] | | | | | | | | +--------+ + + + + | 02/27/ | Appointment | Radiology | Dhara, | | | 2019 | | | [address] | | | | | | [address] [facility], | | | | | | [place] [address] | | | | | | [phone] | | | | | | | [...] | | | | | [place] [address] | | | | | | [phone] | | | | | | | [...] [place] | | | | | | [address] | | | | | | [phone] | | | | | | | | +--------+ + + + + | 03/25/ | Appointment | Rehabilitation | Genesis Aoyn OT | | | 2019 | | | | | +--------+ + + + + | 04/08/ | Office | Neurology | Erika Ernst, | | | 2019 | Visit | | DO [address] | | | | | | [place] [address] | | | | | | [phone] | | | | | | | | | | | | Azul Yeboah, | | | | | | MD [address] | | | | | | [place] | | | | | | [place] [address] | | | | | | [phone] | | | | | | | [...] | | | | | | [place] [address] | | | | | | [phone] | | | | | | | | +--------+ + + + + documented as of this encounter Visit Diagnoses Not on filedocumented in this encounter"
--- OUTSIDE RECORDS SUMMARY | ~2020-02-18 | XMS | Encounter Summary ---
Demographics + + + | Address | [address] | | | [place] [address] | + + + | Home Phone [...] Providers + +------+ + | Care It Application Administrator Name | Role | Phone | [...] Asthma | | 2019 | | [facility] | DO [address] | | | | | [facility] [address] | [place] [address] | | | | | [address] [place], | [phone] | | | | | [place] [address] | | | | | | [phone] | | | +--------+ + + + [...] | | | | | [place] [address] | | | | | | [phone] | | | | | | | | | | | | Julia Fisher, | | | | | | PT | | +--------+ + + + + | 02/18/ | Appointment | Rehabilitation | Erika Ernst, | | | 2019 | | | DO [address] | | | | | | [place] [address] | | | | | | [phone] | | | | | | | | | | | | Genesis Ayon OT | | +--------+ + + + + | 02/25/ | Office | Primary Care | Erika Ernst, | | | 2019 | Visit | | DO [address] | | | | | | [place] [address] | | | | | | [phone] | | | | | | | [...] | | | | | [place] [address] | | | | | | [phone] | | | | | | | | +--------+ + + + + | 02/27/ | Appointment | Radiology | Dhara, | | | 2019 | | | [address] | | | | | | [facility] | | | | | | [place] [address] | | | | | | [phone] | | | | | | | [...] [place] | | | | | | [place] [address] | | | | | | [phone] | | | | | | | [...] [place] | | | | | | [address] | | | | | | [phone] | | | | | | | [...] | | | | | [place] [address] | | | | | | [phone] | | | | | | | | | | | | Azul Yeboah, | | | | | | MD [address] | | | | | | [place] | | | | | | [place] [address] | | | | | | [phone] | | | | | | | [...] | | | | | | [place] [address] | | | | | | [phone] | | | | | | | | +--------+ + + + + documented as of this encounter Visit Diagnoses Not on filedocumented in this encounter"
--- OUTSIDE RECORDS SUMMARY | ~2020-02-18 | XMS | Encounter Summary ---
Demographics + + + | Address | [address] | | | [place] [address] | + + + | Home Phone [...] Team Providers + +------+ + | Care Placement Coordinator Name | Role | Phone | [...] persistent | | 2019 | Visit | [facility] | joanna, [address] | asthma with | | | | [facility] [address] | [address] | exacerbation | | | | [address] [place], | [place] [address] | (Primary Dx); | | | | [place] [address] | [phone] | Environmental | | | | [phone] | | allergies | +--------+---------+ + + [...] made to ensure accuracy. However, inadvertent computerized door to door lead generation errors may be pre sent documented in t his encounter Plan of Treatment +--------+ + + + + | Date | Type | Specialty | Care Team | Description | +--------+ + + + + | 02/18/ | Appointment | Rehabilitation | Erika Ernst, | | | 2019 | | | DO | | | | | | [place] [address] | | | | | | [phone] | | | | | | | | | | | | Julia Fisher, | | | | | | PT | | +--------+ + + + + | 02/18/ | Appointment | Rehabilitation | Erika Ernst, | | | 2019 | | | DO [address] | | | | | | [place] [address] | | | | | | [phone] | | | | | | | | | | | | Genesis Ayon OT | | +--------+ + + + + | 02/25/ | Office | Primary Care | Erika Ernst, | | | 2019 | Visit | | DO [address] | | | | | | [place] [address] | | | | | | [phone] | | | | | | | [...] | | | | | [place] [address] | | | | | | [phone] | | | | | | | | +--------+ + + + + | 02/27/ | Appointment | Radiology | Dhara, | | | 2019 | | | [address] | | | | | | [address] [facility] [place], | | | | | | [place] [address] | | | | | | [phone] | | | | | | | [...] [place] | | | | | | [place] [address] | | | | | | [phone] | | | | | | | [...] [place] | | | | | | [address] | | | | | | [phone] | | | | | | | [...] | | | | | [place] [address] | | | | | | [phone] | | | | | | | | | | | | Azul Yeboah, | | | | | | MD [address] | | | | | | [place] | | | | | | [place] [address] | | | | | | [phone] | | | | | | | | +--------+ + + + + | 04/08/ | Appointment | Nutrition | Janel Webster | | | 2019 | | | [address] | | +--------+ + + + + | 05/21/ | Office | Neurology | Dhara, | | | 2020 | Visit | | Cody, [address] | | | | | | [address] [facility] [place], | | | | | | [place] [address] | | | | | | [phone] | | | | | | | [...]
--- OUTSIDE RECORDS SUMMARY | ~2020-02-18 | XMS | Encounter Summary ---
Demographics + + + | Address | [address] | | | [place] [address] | + + + | Home Phone [...] Team Providers + +------+ + | Care Scrap Shear Operator Name | Role | Phone | [...] | [place], [place] | [place] [address] | | | | | [address] | [phone] | | | | | [phone] | | | +--------+ + + + [...] | | | | | [place] [address] | | | | | | [phone] | | | | | | | | | | | | Julia Fisher, | | | | | | PT | | +--------+ + + + + | 02/18/ | Appointment | Rehabilitation | Erika Ernst, | | | 2019 | | | DO [address] [place] | | | | | | [place] [address] | | | | | | [phone] | | | | | | | | | | | | Genesis Ayon, OT | | +--------+ + + + + | 02/25/ | Office | Primary Care | Erika Ernst, | | | 2019 | Visit | | DO [address] | | | | | | [place] [address] | | | | | | [phone] | | | | | | | [...] | | | | | [place] [address] | | | | | | [phone] | | | | | | | | +--------+ + + + + | 02/27/ | Appointment | Radiology | Dhara, | | | 2019 | | | DWAINE [address] | | | | | | [address] [facility], | | | | | | [place] [address] | | | | | | [phone] | | | | | | | | +--------+ + + + + | 03/04/ | Appointment | Rehabilitation | Genesis Ayon OT | | 2019 | | | | | +--------+ + + + + | 03/09/ | Office | Orthopedic Surgery | Jeffrey Gandhi, | | | 2019 | Visit | | [address] [facility] | | | | | | [place] [address] | | | | | | [phone] | | | | | | | [...] [place] | | | | | | [address] | | | | | | [phone] | | | | | | | [...] | | | | | [place] [address] | | | | | | [phone] | | | | | | | | | | | | Azul Yeboah, | | | | | | MD [address] | | | | | | [address] [place] | | | | | | [place] [address] | | | | | | [phone] | | | | | | | [...] | | | | | | [place] [address] | | | | | | [phone] | | | | | | | | +--------+ + + + + documented as of this encounter Visit Diagnoses Not on filedocumented in this encounter"
--- OUTSIDE RECORDS SUMMARY | ~2020-02-18 | XMS | Encounter Summary ---
Demographics + + + | Address | [address] | | | [place] [address] | + + + | Home Phone [...] Team Providers + +------+ + | Care Autocutter Name | Role | Phone | + +------+ + PCP | Unavailable | + +------+ + Encounter Details +--------+ + + + + | Date | Type | Department | Care Team | Description | +--------+ + + + + | 08/17/ | [facility] | Denise Mcgregor | | | 2016 | Encounter | [facility] | [facility] | | | | | [address] | | | | | | [place] | | | | | | [address] | | | | | | [phone] | | | +--------+ + + + [...] | | | | | [place] [address] | | | | | | [phone] | | | | | | | | | | | | Julia Fisher, | | | | | | PT | | +--------+ + + + + | 02/18/ | Appointment | Rehabilitation | Erika Ernst, | | 2019 | | | DO [address] | | | | | | [place] [address] | | | | | | [phone] | | | | | | | | | | | | Genesis Ayon, SUSAN | | +--------+ + + + + | 02/25/ | Office | Primary Care | Erika Ernst, | | | 2019 | Visit | | DO [address] [place] [address] | | | | | | [place] [address] | | | | | | [phone] | | | | | | | [...] | | | | | [place] [address] | | | | | | [phone] | | | | | | | | +--------+ + + + + | 02/27/ | Appointment | Radiology | Dhara, | | | 2019 | | | [address] | | | | | | [address] [place], | | | | | | [place] [address] | | | | | | [phone] | | | | | | | [...] | | | | | [place] [address] | | | | | | [phone] | | | | | | | [...] [place] | | | | | | [address] | | | | | | [phone] | | | | | | | [...] | | | | | [place] [address] | | | | | | [phone] | | | | | | | | | | | | Azul Yeboah, | | | | | | MD [address] | | | | | | [place] | | | | | | [place] [address] | | | | | | [phone] | | | | | | | [...] | | | | | | [place] [address] | | | | | | [phone] | | | | | | | | +--------+ + + + + documented as of this encounter Procedures + +--------+ + + + | Procedure Name | Priori | Date/Time | Associated Diagnosis | Comments | | | ty | | | | + +--------+ + + + | CBC W/AUTO | Routin | 08/17/2016 | | Results for this | | DIFFERENTIAL | e | 7:49 AM | | procedure are in the | | | | PST | | results section. | + +--------+ + + + | BASIC METABOLIC | Routin | 08/17/2016 | | Results for this | | PANEL | e | 7:49 AM | | procedure are in the | | | | PST | | results section. | + +--------+ + + + documented in this encounter Results CBC w/ Auto Differential (08/17/2016 7:49 AM PST) + +-------+ + + + | Component | Value | Ref Range | Performed | Pathologist | | | | | At | Signature | + +-------+ + + + | WBC | 12.1 | 4.3 - 10.4 | EXTERNAL | | | | | 1000/mm3 | LAB | | + +-------+ + + + | RBC | 4.23 | 4.12 - 5.30 | EXTERNAL | | | | | mil/mm3 | LAB | | + +-------+ + + + | HGB, | 11.4 | 12.4 - 15.7 | EXTERNAL | | | External | | g/dL | LAB | | + +-------+ + + + | HCT, | 35 | 37.7 - 47.0 % | EXTERNAL | | | External | | | LAB | | + +-------+ + + + | MCV | 83 | 82 - 97 fl | EXTERNAL | | | | | | LAB | | + +-------+ + + + | MCH | 27 | 27.1 - 32.3 pg | EXTERNAL | | | | | | LAB | | + +-------+ + + + | MCHC | 32.6 | 32.0 - 36.9 | EXTERNAL | | | | | g/dL | LAB | | + +-------+ + + + | RDW-CV | 14 | <=17.0 % | EXTERNAL | | | | | | LAB | | + +-------+ + + + | Platelet | 312 | 150 - 450 | EXTERNAL | | | Count | | 1000/mm3 | LAB | | | Plasma | | | | | + +-------+ + + + | MPV | 10.6 | 9.4 - 12.3 FL | EXTERNAL | | | | | | LAB | | + +-------+ + + + | % Segmented | 62.2 | 42.0 - 76.0 % | EXTERNAL | | | | | | LAB | | | Neutrophils | | | | | + +-------+ + + + | LYMPH % | 30.9 | 20.0 - 40.0 % | EXTERNAL | | | | | | LAB | | + +-------+ + + + | % Monocytes | 6.9 | <=12.0 % | EXTERNAL | | | | | | LAB | | + +-------+ + + + | Absolute | 7.6 | 2.50 - 8.50 | EXTERNAL | | | Neutrophils | | 1000/mm3 | LAB | | + +-------+ + + + | Absolute | 3.7 | 1.00 - 3.80 | EXTERNAL | | | Lymphocytes | | 1000/mm3 | LAB | | + +-------+ + + + | Absolute | 0.8 | <=1.25 1000/mm3 | EXTERNAL | | [...] | | | + +---------+ + + Basic Metabolic Panel (08/17/2016 7:49 AM PST) + +-------+ + + + | Component | Value | Ref Range | Performed | Pathologist | | | | | At | Signature | + +-------+ + + + | Sodium | 139 | 132 - 143 | EXTERNAL | | | | | mmol/L | LAB | | + +-------+ + + + | Potassium | 3.9 | 3.3 - 4.9 | EXTERNAL | | | | | mmol/L | LAB | | + +-------+ + + + | Cl | 106 | 95 - 108 mmol/L | EXTERNAL | | | | | | LAB | | + +-------+ + + + | CO2 | 23 | 23 - 34 mmol/L | EXTERNAL | | | | | | LAB | | + +-------+ + + + | Anion Gap | 10 | 7 - 16 | EXTERNAL | | | | | | LAB | | + +-------+ + + + | Calcium | 8.7 | 8.3 - 10.0 | EXTERNAL | | | | | mg/dL | LAB | | + +-------+ + + + | Glucose | 87 | 70 - 110 mg/dL | EXTERNAL | | | | | | LAB | | + +-------+ + + + | BUN, Bld | 10 | 5 - 26 mg/dL | EXTERNAL | | | | | | LAB | | + +-------+ + + + | Creatinine | 0.84 | 0.60 - 1.30 | EXTERNAL | | | | | mg/dL | LAB | | + +-------+ + + + | BUN/Creatin | 11.9 | 7.0 - 24.0 | EXTERNAL | [...]
--- OUTSIDE RECORDS SUMMARY | ~2020-02-18 | XMS | Encounter Summary ---
Demographics + + + | Address | [address] | | | [place] [address] | + + + | Home Phone [...] Team Providers + +------+ + | Care Computing Consultant Name | Role | Phone | [...] | +--------+ + + + + | 04/15/ | Telephone | [place] [facility] | Erika Ernst, | Medication Question | | 2019 | | [facility] | DO [address] | | | | | [facility] [address] | [facility] [place] [address] | | | | | [address] [facility], | [phone] | | | | | [place] [address] | | | | | | [phone] | | | +--------+ + + + [...] | | | | | [place] [address] | | | | | | [phone] | | | | | | | | | | | | Julia Fisher, | | | | | | PT | | +--------+ + + + + | 02/18/ | Appointment | Rehabilitation | Erika Ernst, | | | 2019 | | | DO [address] [place] | | | | | | [place] [address] | | | | | | [phone] | | | | | | | | | | | | Genesis Ayon OT | | +--------+ + + + + | 02/25/ | Office | Primary Care | Erika Ernst, | | | 2019 | Visit | | DO [address] | | | | | | [place] [address] | | | | | | [phone] | | | | | | | [...] | | | | | [place] [address] | | | | | | [phone] | | | | | | | | +--------+ + + + + | 02/27/ | Appointment | Radiology | Dhara, | | | 2019 | | | [address] | | | | | | 4TH [facility], | | | | | | [place] [address] | | | | | | [phone] | | | | | | | | +--------+ + + + + | 03/04/ | Appointment | Rehabilitation | Genesis Ayon OT | | | 2019 | | | | | +--------+ + + + + | 03/09/ | Office | Orthopedic Surgery | Jeffrey Gandhi, | | 2019 | Visit | | [address] | | | | | | [place] [address] | | | | | | [phone] | | | | | | | [...] [place] | | | | | | [address] | | | | | | [phone] | | | | | | | [...] | | | | | [place] [address] | | | | | | [phone] | | | | | | | | | | | | Azul Yeboah, | | | | | | MD [address] | | | | | | [place] | | | | | | [place] [address] | | | | | | [phone] | | | | | | | [...] | | | | | | [place] [address] | | | | | | [phone] | | | | | | | | +--------+ + + + + documented as of this encounter Visit Diagnoses Not on filedocumented in this encounter"
--- OUTSIDE RECORDS SUMMARY | ~2020-02-18 | XMS | Encounter Summary ---
Demographics + + + | Address | [address] | | | [place] [address] | + + + | Home Phone [...] Team Providers + +------+ + | Care Pointing Machine Operator Name | Role | Phone | + +------+ + | Erika Ernst DO | PCP | | + +------+ + Reason for Visit +--------+ + | Reason | Comments | +--------+ + | Fever | | +--------+ + | Fever | FYI: pt had a fever again this am | +--------+ + Encounter Details +--------+ + + + + | Date | Type | Department | Care Team | Description | +--------+ + + + + | 12/17/ | Telephone | [place] [facility] | Erika Ernst, | Fever; Fever (FYI: | | 2019 | | [facility] | [address] [place] | pt had a fever again | | | | MEDICAL CLINIC [address] | [facility] [address] | this am) | | | | [address] [place], | [phone] | | | | | [place] [address] | | | | | | [phone] | | | +--------+ + + + [...] | | | | | [place] [address] | | | | | | [phone] | | | | | | | | | | | | Julia Fisher, | | | | | | PT | | +--------+ + + + + | 02/18/ | Appointment | Rehabilitation | rEika Ernst, | | | 2019 | | | DO [address] [place] | | | | | | [place] [address] | | | | | | [phone] | | | | | | | | | | | | Genesis Ayon OT | | +--------+ + + + + | 02/25/ | Office | Primary Care | Erika Ernst, | | | 2019 | Visit | | DO [address] [place] | | | | | | [place] [address] | | | | | | [phone] | | | | | | | [...] | | | | | [place] [address] | | | | | | [phone] | | | | | | | | +--------+ + + + + | 02/27/ | Appointment | Radiology | Dhara | | | 2019 | | | [address] | | | | | | [address] [place], | | | | | | [place] [address] | | | | | | [phone] | | | | | | | [...] ST | | | | | | [place] [address] | | | | | | [phone] | | | | | | | [...] [place] | | | | | | [address] | | | | | | [phone] | | | | | | | [...] | | | | | [place] [address] | | | | | | [phone] | | | | | | | | | | | | Azul Yeboah, | | | | | | [address] | | | | | | [place] | | | | | | [place] [address] | | | | | | [phone] | | | | | | | [...] | | | | | | [place] [address] | | | | | | [phone] | | | | | | | | +--------+ + + + + documented as of this encounter Visit Diagnoses Not on filedocumented in this encounter"
--- OUTSIDE RECORDS SUMMARY | ~2020-02-18 | XMS | Encounter Summary ---
Demographics + + + | Address | [address] | | | [place] [address] | + + + | Home Phone [...] Team Providers + +------+ + | Care Resaw Tailer Name | Role | Phone | + [...] Imaging | | 2019 | | [facility] | DO [address] | | | | | MEDICAL CLINIC [address] | [place] [address] | | | | | [address] [place], | [phone] | | | | | [place] [address] | | | | | | [phone] | | | +--------+ + + + [...] | | | | | [place] [address] | | | | | | [phone] | | | | | | | | | | | | Julia Fisher, | | | | | | PT | | +--------+ + + + + | 02/18/ | Appointment | Rehabilitation | Erika Ernst, | | | 2019 | | | DO [address] [place] | | | | | | [place] [address] | | | | | | [phone] | | | | | | | | | | | | Genesis Ayon OT | | +--------+ + + + + | 02/25/ | Office | Primary Care | Erika Ernst, | | | 2019 | Visit | | DO [address] [place] | | | | | | [place] [address] | | | | | | [phone] | | | | | | | [...] | | | | | [place] [address] | | | | | | [phone] | | | | | | | | +--------+ + + + + | 02/27/ | Appointment | Radiology | Dhara, | | | 2019 | | | [address] | | | | | | [address] [place], | | | | | | [place] [address] | | | | | | [phone] | | | | | | | [...] [place] | | | | | | [place] [address] | | | | | | [phone] | | | | | | | [...] [place] | | | | | | [address] | | | | | | [phone] | | | | | | | [...] | | | | | [place] [address] | | | | | | [phone] | | | | | | | | | | | | Azul Yeboah, | | | | | | MD [address] | | | | | | [place] | | | | | | [place] [address] | | | | | | [phone] | | | | | | | [...] | | | | | | [place] [address] | | | | | | [phone] | | | | | | | | +--------+ + + + + documented as of this encounter Visit Diagnoses Not on filedocumented in this encounter"
--- OUTSIDE RECORDS SUMMARY | ~2020-02-18 | XMS | Encounter Summary ---
Demographics + + + | Address | [address] | | | [place] [address] | + + + | Home Phone [...] Team Providers + +------+ + | Care Upper Marker Name | Role | Phone | + [...] | MEDICAL CLIN[facility] [address] | [place] [address] | Essential | | | | [address] [place], | [phone] | hypertension; Asthma | | | | [place] [address] | | due to | | | | [phone] | | environmental | | | | [...] allergy bunn. She will let the holter engine monitor kne w this when she gets [...] 50.0 to 59.9 in adult ([facility]) Plan: We will order a week long [...] | | | DO [address] [place] | | | | | | [place] [address] | | | | | | [phone] | | | | | | | | | | | | Julia Fisher, | | | | | | PT | | +--------+ + + + + | 02/18/ | Appointment | Rehabilitation | Erika Ernst, | | 2019 | | | DO [address] [place] | | | | | | [place] [address] | | | | | | [phone] | | | | | | | | | | | | Genesis Ayon, OT | | +--------+ + + + + | 02/25/ | Office | Primary Care | Erika Ernst, | | | 2019 | Visit | | DO [address] [place] | | | | | | [place] [address] | | | | | | [phone] | | | | | | | [...] | | | | | [place] [address] | | | | | | [phone] | | | | | | | | +--------+ + + + + | 02/27/ | Appointment | Radiology | Dhara, | | | 2019 | | | [address] | | | | | | [address] [place], | | | | | | [place] [address] | | | | | | [phone] | | | | | | | | +--------+ + + + + | 03/04/ | Appointment | Rehabilitation | Genesis Ayon OT | | | 2019 | | | | | +--------+ + + + + | 03/09/ | Office | Orthopedic Surgery | Jeffrey Gandhi, | | | 2019 | Visit | | [address] | | | | | | [place] [address] | | | | | | [phone] | | | | | | | [...] [place] | | | | | | [address] | | | | | | [phone] | | | | | | | [...] | | | | | [place] [address] | | | | | | [phone] | | | | | | | | | | | | Azul Yeboah, | | | | | | [address] | | | | | | [place] | | | | | | [place] [address] | | | | | | [phone] | | | | | | | [...] | | | | | | [place] [address] | | | | | | [phone] | | | | | | | [...]
--- OUTSIDE RECORDS SUMMARY | ~2020-02-18 | XMS | Encounter Summary ---
Demographics + + + | Address | [address] | | | [place] [address] | + + + | Home Phone [...] Team Providers + +------+ + | Care Type Disk Quality Control Supervisor Name | Role | Phone | [...] | [address] | [facility], [place] | | | | | [place], [place] | [address] | | | | | [address] | [phone] | | | | | [phone] | | | +--------+ + + + [...] | | | | | [place] [address] | | | | | | [phone] | | | | | | | | | | | | Julia Fisher, | | | | | | PT | | +--------+ + + + + | 02/18/ | Appointment | Rehabilitation | Erika Ernst, | | | 2019 | | | DO [address] [place] | | | | | | [place] [address] | | | | | | [phone] | | | | | | | | | | | | Genesis Ayon, OT | | +--------+ + + + + | 02/25/ | Office | Primary Care | Erika Ernst, | | | 2019 | Visit | | DO [address] [place] | | | | | | [place] [address] | | | | | | [phone] | | | | | | | [...] | | | | | [place] [address] | | | | | | [phone] | | | | | | | | +--------+ + + + + | 02/27/ | Appointment | Radiology | Dhara, | | | 2019 | | | [address] | | | | | | 4TH [facility], | | | | | | [place] [address] | | | | | | [phone] | | | | | | | | +--------+ + + + + | 03/04/ | Appointment | Rehabilitation | Genesis Ayon OT | | | 2019 | | | | | +--------+ + + + + | 03/09/ | Office | Orthopedic Surgery | Jeffrey Gandhi, | | 2019 | Visit | | [address] | | | | | | [place] [address] | | | | | | [phone] | | | | | | | [...] [place] | | | | | | [address] | | | | | | [phone] | | | | | | | [...] | | | | | [place] [address] | | | | | | [phone] | | | | | | | | | | | | Azul Yeboah, | | | | | | MD [address] | | | | | | [place] | | | | | | [place] [address] | | | | | | [phone] | | | | | | | [...] | | | | | | [place] [address] | | | | | | [phone] | | | | | | | | +--------+ + + + + documented as of this encounter Visit Diagnoses Not on filedocumented in this encounter"
--- OUTSIDE RECORDS SUMMARY | ~2020-02-18 | XMS | Encounter Summary ---
Demographics + + + | Address | [address] | | | [place] [address] | + + + | Home Phone [...] Team Providers + +------+ + | Care Media Sales Consultant Name | Role | Phone | [...] of | | 2019 | Visit | [facility] | HOSPITALIST PROGRAM DIRECTOR-PUNCH PRESS SETTER [address] | head and neck | | | | [facility] [address] | [address] | | | | | [address] [place], | [place] [address] | | | | | [place] [address] | [phone] | | | | | [phone] | | | | | | | Brandi Pitts, | | | | | | DO [address] | | | | | | [place] [address] | | | | | | [phone] | | | | | | | [...] present. Entered by Marissa Bautista CNA 2, [facility], acting as scribe for Dr. Hong DO The documentation recorded by the scribe accurately reflects the service I personally perfo rmed and the decisions made by me. Electronically signed by: Brandi Pitts DO 04/17/2019 7:54 Note: Part of this report was transcribed using voice recognition software. Every effort wa s made to ensure accuracy. However, inadvertent computerized cattle brander errors may be pre sent. documented in this encounter Plan of Treatment +--------+ + + + + | Date | Type | Specialty | Care Team | Description | +--------+ + + + + | 02/18/ | Appointment | Rehabilitation | Erika Ernst, | | | 2019 | | | DO [address] [facility] | | | | | | [facility] [place] [address] | | | | | | [phone] | | | | | | | | | | | | Julia Fisher, | | | | | | PT | | +--------+ + + + + | 02/18/ | Appointment | Rehabilitation | Erika Ernst, | | | 2019 | | | DO [address] [place] | | | | | | [place] [address] | | | | | | [phone] | | | | | | | | | | | | Genesis Ayon, SUSAN | | +--------+ + + + + | 02/25/ | Office | Primary Care | Erika Ernst, | | | 2019 | Visit | | DO [address] [place] | | | | | | [place] [address] | | | | | | [phone] | | | | | | | [...] | | | | | [place] [address] | | | | | | [phone] | | | | | | | | +--------+ + + + + | 02/27/ | Appointment | Radiology | Dhara, | | | 2019 | | | [address] | | | | | | 4TH [facility] [place], | | | | | | [place] [address] | | | | | | [phone] | | | | | | | [...] | | | | | [place] [address] | | | | | | [phone] | | | | | | | [...] [place] | | | | | | [address] | | | | | | [phone] | | | | | | | [...] [address] | | | | | | [phone] | | | | | | | | | | | | Azul Yeboah, | | | | | | MD [address] | | | | | | [place] | | | | | | [place] [address] | | | | | | [phone] | | | | | | | [...] | | | | | | [place] [address] | | | | | | [phone] | | | | | | | | +--------+ + + + + documented as of this encounter Visit Diagnoses + + | Diagnosis | + + | Lymphadenopathy of head and neck | + + documented in this encounter"
--- OUTSIDE RECORDS SUMMARY | ~2020-02-18 | XMS | Encounter Summary ---
Demographics + + + | Address | [address] | | | [place] [address] | + + + | Home Phone [...] Team Providers + +------+ + | Care Ab Initio Etl Developer Name | Role | Phone | [...] + + | Closed | Specialty | Hematology | Diagnoses | Klever, | Miya, | | | Services | and Oncology | Iron | Erika Salter DO | Pravin | | | Required | | deficiency | [address] | MD [place] | | | | | | [place], | [address] | | | | | | [place] [address] | [place], | | | | | | Phone: | [place] [address] | | | | | | [phone] | Phone: | | | | | | Fax: | [phone] | | | | | | [phone] | Fax: | | | | | | | [phone] | +--------+ + + + + + Encounter Details +--------+ + + + + | Date | Type | Department | Care Team | Description | +--------+ + + + + | 09/19/ | Orders Only | [place] [facility] | Erika Ernst, | Iron deficiency | | 2019 | | [facility] | DO [address] | (Primary Dx) | | | | MEDICAL CLINIC [address] | [place] [address] | | | | | [address] [place], | [phone] | | | | | [place] [address] | | | | | | [phone] | | | +--------+ + + + [...] | | 2019 | | | DO [address] [place] [address] | | | | | | [place] [address] | | | | | | [phone] | | | | | | | | | | | | Julia Fisher, | | | | | | PT | | +--------+ + + + + | 02/18/ | Appointment | Rehabilitation | Erika Ernst, | | | 2019 | | | DO [address] [place] | | | | | | [place] [address] | | | | | | [phone] | | | | | | | | | | | | Genesis Ayon, SUSAN | | +--------+ + + + + | 02/25/ | Office | Primary Care | Erika Ernst, | | | 2019 | Visit | | DO [address] [place] | | | | | | [place] [address] | | | | | | [phone] | | | | | | | [...] | | | | | [place] [address] | | | | | | [phone] | | | | | | | | +--------+ + + + + | 02/27/ | Appointment | Radiology | Dhara, | | | 2019 | | | [address] | | | | | | [address] [facility] [place], | | | | | | [place] [address] | | | | | | [phone] | | | | | | | [...] | | | | | [place] [address] | | | | | | [phone] | | | | | | | [...] [place] | | | | | | [address] | | | | | | [phone] | | | | | | | [...] | | | | | [place] [address] | | | | | | [phone] | | | | | | | | | | | | Azul Yeboah, | | | | | | MD [address] | | | | | | [place] | | | | | | [place] [address] | | | | | | [phone] | | | | | | | [...] | | | | | | [place] [address] | | | | | | [phone] | | | | | | | | +--------+ + + + + + + +--------+ + + | Name | Type | Priori | Associated Diagnoses | Order Schedule | | | | ty | | | + + +--------+ + + | Hematology, External | Outpatient | Routin | Iron deficiency | Ordered: 09/19/2019 | | - AMB Referral | Referral | e | | | + + +--------+ + + documented as of this encounter Visit Diagnoses + + | Diagnosis | + + | Iron deficiency - Primary Other disorders of iron metabolism | + + documented in this encounter"
--- OUTSIDE RECORDS SUMMARY | ~2020-02-18 | XMS | Encounter Summary ---
Demographics + + + | Address | [address] | | | [place] [address] | + + + | Home Phone [...] Providers + +------+ + | Care Motor Pool Clerk Name | Role | Phone | + +------+ + | Erika Ernst DO | PCP | | + +------+ + Reason for Visit +--------+ + | Reason | Comments | +--------+ + | Other | Work Restrictions | +--------+ + Encounter Details +--------+ + + + + | Date | Type | Department | Care Team | Description | +--------+ + + + + | 06/10/ | Telephone | [facility] | Inocencio Noriega | Other (Work | | 2019 | | [facility] | MD [address] | Restrictions) | | | | [address] | [address] | | | | | [place], [place] | [place] [address] | | | | | [address] | [phone] | | | | | [phone] | | | +--------+ + + + [...] | | | | | [place] [address] | | | | | | [phone] | | | | | | | | | | | | Julia Fisher, | | | | | | PT | | +--------+ + + + + | 02/18/ | Appointment | Rehabilitation | Erika Ernst, | | | 2019 | | | DO [address] [place] | | | | | | [place] [address] | | | | | | [phone] | | | | | | | | | | | | [facility] | | +--------+ + + + + | 02/25/ | Office | Primary Care | Erika Ernst, | | | 2019 | Visit | | DO [address] [place] | | | | | | [place] [address] | | | | | | [phone] | | | | | | | [...] | | | | | [place] [address] | | | | | | [phone] | | | | | | | | +--------+ + + + + | 02/27/ | Appointment | Radiology | Dhara, | | | 2019 | | | [address] | | | | | | [address], | | | | | | [place] [address] | | | | | | [phone] | | | | | | | [...] [place] | | | | | | [place] [address] | | | | | | [phone] | | | | | | | [...] [place] | | | | | | [address] | | | | | | [phone] | | | | | | | [...] | | | | | [place] [address] | | | | | | [phone] | | | | | | | | | | | | Azul Yeboah, | | | | | | MD [address] | | | | | | [place] | | | | | | [place] [address] | | | | | | [phone] | | | | | | | [...] | | | | | | [place] [address] | | | | | | [phone] | | | | | | | | +--------+ + + + + documented as of this encounter Visit Diagnoses Not on filedocumented in this encounter"
--- OUTSIDE RECORDS SUMMARY | ~2020-02-18 | XMS | Encounter Summary ---
Demographics + + + | Address | [address] | | | [place] [address] | + + + | Home Phone [...] Team Providers + +------+ + | Care Powder Mixer Name | Role | Phone | + [...] Medication Refill | | 2018 | | [facility] | AND [employer] [address] [facility] | | | | | [facility] [address] | | | | | | [address] [place], | | | | | | [place] [address] | | | | | | [phone] | | | +--------+--------+ + + + [...] 2019 | | | DO [address] | | | | | | [place] [address] | | | | | | [phone] | | | | | | | | | | | | Julia Fisher, | | | | | | PT | | +--------+ + + + + | 02/18/ | Appointment | Rehabilitation | Erika Ernst, | | | 2019 | | | DO [address] [place] | | | | | | [place] [address] | | | | | | [phone] | | | | | | | | | | | | [facility] | | +--------+ + + + + | 02/25/ | Office | Primary Care | Erika Ernst, | | | 2019 | Visit | | DO [address] | | | | | | [place] [address] | | | | | | [phone] | | | | | | | [...] | | | | | | [place] [address] | | | | | | [phone] | | | | | | | | +--------+ + + + + | 02/27/ | Appointment | Radiology | Dhara, | | | 2019 | | | [address] | | | | | | 4TH [facility], | | | | | | [place] [address] | | | | | | [phone] | | | | | | | [...] | | | | [place], [place] [address] | | | | | | [phone] | | | | | | | [...] | | | | | | [place] | | | | | | [address] | | | | | | [phone] | | | | | | | [...] | | | | | [place] [address] | | | | | | [phone] | | | | | | | | | | | | Azul Yeboah, | | | | | | MD [address] | | | | | | [place] | | | | | | [place] [address] | | | | | | [phone] | | | | | | | [...] | | | | | | [place] [address] | | | | | | [phone] | | | | | | | | +--------+ + + + + documented as of this encounter Visit Diagnoses + + | Diagnosis | + + | Depression, unspecified depression type | + + documented in this encounter"
--- OUTSIDE RECORDS SUMMARY | ~2020-02-18 | XMS | Encounter Summary ---
Demographics + + + | Address | [address] | | | [place] [address] | + + + | Home Phone [...] Team Providers + +------+ + | Care Railroad Accountant Name | Role | Phone | + [...] [facility] | | | | | MEDICAL CLIN[facility] [address] | [facility] [place] [address] | | | | | [address] [place], | [phone] | | | | | [place] [address] | | | | | | [phone] | | | +--------+ + + + [...] | | | | | [place] [address] | | | | | | [phone] | | | | | | | | | | | | Julia Fisher, | | | | | | PT | | +--------+ + + + + | 02/18/ | Appointment | Rehabilitation | Erika Ernst, | | | 2019 | | | DO [address] | | | | | | [place] [address] | | | | | | [phone] | | | | | | | | | | | | [facility] | | +--------+ + + + + | 02/25/ | Office | Primary Care | Erika Ernst, | | | 2019 | Visit | | DO [address] [place] | | | | | | [place] [address] | | | | | | [phone] | | | | | | | [...] | | | | | [place] [address] | | | | | | [phone] | | | | | | | | +--------+ + + + + | 02/27/ | Appointment | Radiology | Dhara, | | | 2019 | | | [address] | | | | | | 4TH [facility], | | | | | | [place] [address] | | | | | | [phone] | | | | | | | [...] | | | | | [place] [address] | | | | | | [phone] | | | | | | | [...] [place] | | | | | | [address] | | | | | | [phone] | | | | | | | [...] | | | | | [place] [address] | | | | | | [phone] | | | | | | | | | | | | Azul Yeboah, | | | | | | MD [address] | | | | | | [place] | | | | | | [place] [address] | | | | | | [phone] | | | | | | | [...] | | | | | | [place] [address] | | | | | | [phone] | | | | | | | | +--------+ + + + + documented as of this encounter Visit Diagnoses Not on filedocumented in this encounter"
--- OUTSIDE RECORDS SUMMARY | ~2020-02-18 | XMS | Encounter Summary ---
Demographics + + + | Address | [address] | | | [place] [address] | + + + | Home Phone [...] Team Providers + +------+ + | Care Tile Professional Name | Role | Phone | + +------+ + | Erika Ernst DO | PCP | | + +------+ + Reason for Visit +--------+ + | Reason | Comments | +--------+ + | Other | Holter Monitor | +--------+ + Encounter Details +--------+ + + + + | Date | Type | Department | Care Team | Description | +--------+ + + + + | 12/20/ | Telephone | [place] [facility] | KleverKeithleslie Salter, | Other (Holter | | 2019 | | [facility] | DO [address] | Monitor ) | | | | MEDICAL CLINIC [address] | [place] [address] | | | | | [address] [place], | [phone] | | | | | [place] [address] | | | | | | [phone] | | | +--------+ + + + [...] | | | DO [address] | | | | | | [place] [address] | | | | | | [phone] | | | | | | | | | | | | Julia Fisher, | | | | | | PT | | +--------+ + + + + | 02/18/ | Appointment | Rehabilitation | Erika Ernst, | | | 2019 | | | DO [address] [place] | | | | | | [place] [address] | | | | | | [phone] | | | | | | | | | | | | [facility] | | +--------+ + + + + | 02/25/ | Office | Primary Care | Erika Ernst, | | | 2019 | Visit | | DO [address] [place] | | | | | | [place] [address] | | | | | | [phone] | | | | | | | [...] | | | | | [place] [address] | | | | | | [phone] | | | | | | | | +--------+ + + + + | 02/27/ | Appointment | Radiology | Dhara, | | | 2019 | | | [address] | | | | | | [address] [place], | | | | | | [place] [address] | | | | | | [phone] | | | | | | | [...] | | | | | [place] [address] | | | | | | [phone] | | | | | | | [...] [place] | | | | | | [address] | | | | | | [phone] | | | | | | | [...] | | | | | [place] [address] | | | | | | [phone] | | | | | | | | | | | | Azul Yeboah, | | | | | | MD [address] | | | | | | [place] | | | | | | [place] [address] | | | | | | [phone] | | | | | | | [...] | | | | | | [place] [address] | | | | | | [phone] | | | | | | | | +--------+ + + + + documented as of this encounter Visit Diagnoses Not on filedocumented in this encounter"
--- OUTSIDE RECORDS SUMMARY | ~2020-02-18 | XMS | Encounter Summary ---
Demographics + + + | Address | [address] | | | [place] [address] | + + + | Home Phone [...] Team Providers + +------+ + | Care Broth Mixer Name | Role | Phone | + +------+ + PCP | Unavailable | + +------+ + Encounter Details +--------+ + + + + | Date | Type | Department | Care Team | Description | +--------+ + + + + | 05/07/ | [facility] | Spenser Roberts NP | | | 2015 | Encounter | [facility] | [address], | | | | | MEDICAL CLINIC [address] | [place] [address] | | | | | 4TH [facility], | [phone] | | | | | [place] [address] | | | | | | [phone] | | | +--------+ + + + [...] | | | | | [place] [address] | | | | | | [phone] | | | | | | | | | | | | Julia Fisher, | | | | | | PT | | +--------+ + + + + | 02/18/ | Appointment | Rehabilitation | Erika Ernst, | | | 2019 | | | DO [address] [place] | | | | | | [place] [address] | | | | | | [phone] | | | | | | | | | | | | [facility] | | +--------+ + + + + | 02/25/ | Office | Primary Care | Erika Ernst, | | | 2019 | Visit | | DO [address] | | | | | | [place] [address] | | | | | | [phone] | | | | | | | [...] | | | | | [place] [address] | | | | | | [phone] | | | | | | | | +--------+ + + + + | 02/27/ | Appointment | Radiology | Dhara, | | | 2019 | | | [address] | | | | | | 4TH [facility], | | | | | | [place] [address] | | | | | | [phone] | | | | | | | | +--------+ + + + + | 03/04/ | Appointment | Rehabilitation | Genesis Ayon OT | | | 2019 | | | | | +--------+ + + + + | 03/09/ | Office | Orthopedic Surgery | Jeffrey Gandhi, | | 2019 | Visit | | [address] | | | | | | [place] [address] | | | | | | [phone] | | | | | | | [...] [place] | | | | | | [address] | | | | | | [phone] | | | | | | | [...] | | | | | [place] [address] | | | | | | [phone] | | | | | | | | | | | | Azul Yeboah, | | | | | | MD [address] | | | | | | [place] | | | | | | [place] [address] | | | | | | [phone] | | | | | | | [...] | | | | | | [place] [address] | | | | | | [phone] | | | | | | | | +--------+ + + + + documented as of this encounter Visit Diagnoses Not on filedocumented in this encounter"
--- OUTSIDE RECORDS SUMMARY | ~2020-02-18 | XMS | Encounter Summary ---
Demographics + + + | Address | [address] | | | [place] [address] | + + + | Home Phone [...] Team Providers + +------+ + | Care Control Systems Eng Name | Role | Phone | + [...] | MEDICAL CLIN[facility] [address] | [place] [address] | | | | | [address] [place], | [phone] | | | | | [place] [address] | | | | | | [phone] | | | +--------+ + + + [...] | | | | | [place] [address] | | | | | | [phone] | | | | | | | | | | | | Julia Fisher, | | | | | | PT | | +--------+ + + + + | 02/18/ | Appointment | Rehabilitation | Erika Ernst, | | | 2019 | | | DO [address] | | | | | | [place] [address] | | | | | | [phone] | | | | | | | | | | | | [facility] | | +--------+ + + + + | 02/25/ | Office | Primary Care | Erika Ernst, | | | 2019 | Visit | | DO [address] [place] | | | | | | [place] [address] | | | | | | [phone] | | | | | | | [...] | | | | | [place] [address] | | | | | | [phone] | | | | | | | | +--------+ + + + + | 02/27/ | Appointment | Radiology | Dhara, | | | 2019 | | | [address] | | | | | | 4TH [facility] [place], | | | | | | [place] [address] | | | | | | [phone] | | | | | | | [...] [place] | | | | | | [place] [address] | | | | | | [phone] | | | | | | | [...] [place] | | | | | | [address] | | | | | | [phone] | | | | | | | [...] | | | | | [place] [address] | | | | | | [phone] | | | | | | | | | | | | Azul Yeboah, | | | | | | MD [address] | | | | | | [place] | | | | | | [place] [address] | | | | | | [phone] | | | | | | | [...] | | | | | | [place] [address] | | | | | | [phone] | | | | | | | | +--------+ + + + + documented as of this encounter Visit Diagnoses Not on filedocumented in this encounter"
--- OUTSIDE RECORDS SUMMARY | ~2020-02-18 | XMS | Encounter Summary ---
Demographics + + + | Address | [address] | | | [place] [address] | + + + | Home Phone [...] Team Providers + +------+ + | Care Wares Sorter Name | Role | Phone | + +------+ + PCP | Unavailable | + +------+ + Encounter Details +--------+ + + + + | Date | Type | Department | Care Team | Description | +--------+ + + + + | 05/22/ | [facility] | Spenser Roberts NP | | | 2015 | Encounter | [facility] | [address], | | | | | MEDICAL CLINIC [address] | [place] [address] | | | | | 4TH [facility], | [phone] | | | | | [place] [address] | | | | | | [phone] | | | +--------+ + + + [...] | | | | | [place] [address] | | | | | | [phone] | | | | | | | | | | | | Julia Fisher, | | | | | | PT | | +--------+ + + + + | 02/18/ | Appointment | Rehabilitation | Erika Ernst, | | | 2019 | | | DO [address] | | | | | | [place] [address] | | | | | | [phone] | | | | | | | | | | | | [facility] | | +--------+ + + + + | 02/25/ | Office | Primary Care | Erika Ernst, | | | 2019 | Visit | | DO [address] | | | | | | [place] [address] | | | | | | [phone] | | | | | | | [...] | | | | | | [place] [address] | | | | | | [phone] | | | | | | | | +--------+ + + + + | 02/27/ | Appointment | Radiology | Dhara, | | | 2019 | | | [address] | | | | | | 4TH [facility], | | | | | | [place] [address] | | | | | | [phone] | | | | | | | | +--------+ + + + + | 03/04/ | Appointment | Rehabilitation | Geneiss Ayon OT | | | 2019 | | | | | +--------+ + + + + | 03/09/ | Office | Orthopedic Surgery | Jeffrey Gandhi, | | 2019 | Visit | | [address] | | | | | | [place] [address] | | | | | | [phone] | | | | | | | [...] [place] | | | | | | [address] | | | | | | [phone] | | | | | | | [...] | | | | | [place] [address] | | | | | | [phone] | | | | | | | | | | | | Azul Yeboah, | | | | | | MD [address] | | | | | | [place] | | | | | | [place] [address] | | | | | | [phone] | | | | | | | [...] | | | | | | [place] [address] | | | | | | [phone] | | | | | | | | +--------+ + + + + documented as of this encounter Visit Diagnoses Not on filedocumented in this encounter"
--- OUTSIDE RECORDS SUMMARY | ~2020-02-18 | XMS | Encounter Summary ---
Demographics + + + | Address | [address] | | | [place] [address] | + + + | Home Phone [...] Team Providers + +------+ + | Care Apple Peeler Operator Name | Role | Phone | [...] | [place], [place] | [place] [address] | | | | | [address] | [phone] | | | | | [phone] | | | +--------+ + + + [...] | | | | | [place] [address] | | | | | | [phone] | | | | | | | | | | | | Julia Fisher, | | | | | | PT | | +--------+ + + + + | 02/18/ | Appointment | Rehabilitation | Erika Ernst, | | | 2019 | | | DO [address] [place] | | | | | | [place] [address] | | | | | | [phone] | | | | | | | | | | | | [facility] | | +--------+ + + + + | 02/25/ | Office | Primary Care | Erika Ernst, | | | 2019 | Visit | | DO [address] | | | | | | [place] [address] | | | | | | [phone] | | | | | | | [...] | | | | | [place] [address] | | | | | | [phone] | | | | | | | | +--------+ + + + + | 02/27/ | Appointment | Radiology | Dhara, | | | 2019 | | | [address] | | | | | | 4TH [facility] [place], | | | | | | [place] [address] | | | | | | [phone] | | | | | | | [...] | | | | | | [place] [address] | | | | | | [phone] | | | | | | | [...] [place] | | | | | | [address] | | | | | | [phone] | | | | | | | [...] | | | | | [place] [address] | | | | | | [phone] | | | | | | | | | | | | Azul Yeboah, | | | | | | MD [address] | | | | | | [place] | | | | | | [place] [address] | | | | | | [phone] | | | | | | | | +--------+ + + + + | 04/08/ | Appointment | Nutrition | Janel Webster | | | 2019 | | | [address], [address] | | +--------+ + + + + | 05/21/ | Office | Neurology | Dahra, | | | 2020 | Visit | | [address] | | | | | | [address] [place], | | | | | | [place] [address] | | | | | | [phone] | | | | | | | | +--------+ + + + + documented as of this encounter Visit Diagnoses Not on filedocumented in this encounter"
--- OUTSIDE RECORDS SUMMARY | ~2020-02-18 | XMS | Encounter Summary ---
Demographics + + + | Address | [address] | | | [place] [address] | + + + | Home Phone [...] Team Providers + +------+ + | Care Claims Representative Name | Role | Phone | [...] | CENTER [address] [place], [place] | | | | | [place], [place] | [address] | | | | | [address] | | | | | | [phone] | | | +--------+ + + + [...] | | | | | [place] [address] | | | | | | [phone] | | | | | | | | | | | | Julia Fisher, | | | | | | PT | | +--------+ + + + + | 02/18/ | Appointment | Rehabilitation | Erika Ernst, | | | 2019 | | | DO [address] [place] | | | | | | [place] [address] | | | | | | [phone] | | | | | | | | | | | | [facility] | | +--------+ + + + + | 02/25/ | Office | Primary Care | Erika Ernst, | | | 2019 | Visit | | DO [address] | | | | | | [place] [address] | | | | | | [phone] | | | | | | | [...] | | | | | [place] [address] | | | | | | [phone] | | | | | | | | +--------+ + + + + | 02/27/ | Appointment | Radiology | Dhara, | | | 2019 | | | [address] | | | | | | 4TH [facility], | | | | | | [place] [address] | | | | | | [phone] | | | | | | | | +--------+ + + + + | 03/04/ | Appointment | Rehabilitation | Genesis Ayon OT | | | 2019 | | | | | +--------+ + + + + | 03/09/ | Office | Orthopedic Surgery | Jeffrey Gandhi, | | | 2019 | Visit | | [address] [facility] | | | | | | [place] [address] | | | | | | [phone] | | | | | | | [...] [place] | | | | | | [address] | | | | | | [phone] | | | | | | | [...] | | | | | [place] [address] | | | | | | [phone] | | | | | | | | | | | | Azul Yeboah, | | | | | | MD [address] | | | | | | [place] | | | | | | [place] [address] | | | | | | [phone] | | | | | | | [...] | | | | | | [place] [address] | | | | | | [phone] | | | | | | | | +--------+ + + + + documented as of this encounter Visit Diagnoses Not on filedocumented in this encounter"
--- OUTSIDE RECORDS SUMMARY | ~2020-02-18 | XMS | Encounter Summary ---
Demographics + + + | Address | [address] | | | [place] [address] | + + + | Home Phone [...] Providers + +------+ + | Care Assistant Professor Of Theater Name | Role | Phone | + [...] + + + + | 10/17/ | Telephone | [place] [facility] | Veronica Huerta, | Results, Imaging | | 2019 | | [facility] | NUCLEAR MEDICINE SPECIALIST | | | | | MEDICAL CLINIC [address] | | | | | | 4TH [facility] [place], | | | | | | [place] [address] | | | | | | [phone] | | | +--------+ + + + [...] | | | | | [place] [address] | | | | | | [phone] | | | | | | | | | | | | Julia Fisher, | | | | | | PT | | +--------+ + + + + | 02/18/ | Appointment | Rehabilitation | Erika Ernst, | | | 2019 | | | DO [address] [place] | | | | | | [place] [address] | | | | | | [phone] | | | | | | | | | | | | [facility] OT | | +--------+ + + + + | 02/25/ | Office | Primary Care | Erika Ernst, | | | 2019 | Visit | | DO [address] [place] | | | | | | [place] [address] | | | | | | [phone] | | | | | | | [...] | | | | | | [place] [address] | | | | | | [phone] | | | | | | | | +--------+ + + + + | 02/27/ | Appointment | Radiology | Dhara, | | | 2019 | | | [address] | | | | | | [address] [place], | | | | | | [place] [address] | | | | | | [phone] | | | | | | | [...] | | | | | [place] [address] | | | | | | [phone] | | | | | | | [...] [place] | | | | | | [address] | | | | | | [phone] | | | | | | | [...] | | | | | [place] [address] | | | | | | [phone] | | | | | | | | | | | | Azul Yeboah, | | | | | | [address] | | | | | | [place] | | | | | | [place] [address] | | | | | | [phone] | | | | | | | [...] | | | | | | [place] [address] | | | | | | [phone] | | | | | | | | +--------+ + + + + documented as of this encounter Visit Diagnoses Not on filedocumented in this encounter"
--- OUTSIDE RECORDS SUMMARY | ~2020-02-18 | XMS | Encounter Summary ---
Demographics + + + | Address | [address] | | | [place] [address] | + + + | Home Phone [...] Team Providers + +------+ + | Care Drapery Supervisor Name | Role | Phone | [...] Results, Imaging | | 2019 | | [facility] | [facility] | | | | | MEDICAL CLINIC [address] | | | | | | 4TH [facility] [place], | | | | | | [place] [address] | | | | | | [phone] | | | +--------+ + + + [...] | | | | | [place] [address] | | | | | | [phone] | | | | | | | | | | | | Julia Fisher, | | | | | | PT | | +--------+ + + + + | 02/18/ | Appointment | Rehabilitation | Erika Ernst, | | | 2019 | | | DO [address] [place] | | | | | | [place] [address] | | | | | | [phone] | | | | | | | | | | | | [facility] | | +--------+ + + + + | 02/25/ | Office | Primary Care | Erika Ernst, | | | 2019 | Visit | | DO [address] [place] | | | | | | [place] [address] | | | | | | [phone] | | | | | | | [...] | | | | | | [place] [address] | | | | | | [phone] | | | | | | | | +--------+ + + + + | 02/27/ | Appointment | Radiology | Dhara, | | | 2019 | | | [address] | | | | | | [address] [place], | | | | | | [place] [address] | | | | | | [phone] | | | | | | | [...] | | | | | [place] [address] | | | | | | [phone] | | | | | | | [...] [place] | | | | | | [address] | | | | | | [phone] | | | | | | | | +--------+ + + + + | 03/25/ | Appointment | Rehabilitation | Genesis Ayon OT | | 2019 | | | | | +--------+ + + + + | 04/08/ | Office | Neurology | Eriak Ernst, | | | 2019 | Visit | | DO [address] [place] | | | | | | [place] [address] | | | | | | [phone] | | | | | | | | | | | | Azul Yeboah, | | | | | | [address] | | | | | | [place] | | | | | | [place] [address] | | | | | | [phone] | | | | | | | [...] | | | | | | [place] [address] | | | | | | [phone] | | | | | | | | +--------+ + + + + documented as of this encounter Visit Diagnoses Not on filedocumented in this encounter"
--- OUTSIDE RECORDS SUMMARY | ~2020-02-18 | XMS | Encounter Summary ---
Demographics + + + | Address | [address] | | | [place] [address] | + + + | Home Phone [...] Team Providers + +------+ + | Care Mathematical Technician Name | Role | Phone | [...] | | | of left | [place] [address] | [place] [address] | | | | | ankle, | Phone: | Phone: | | | | | initial | [phone] | [phone] | | | | | encounter | Fax: | Fax: | | | | | Procedures | [phone] | [phone] | | | | | PT TREAT [...] [address] [place] | [place] [address] | encounter (Primary | | | | [place], [place] | [phone] | Dx) | | | | [address] | | | | | | [phone] | Nick Barrios I, PT | | [...] might be different fro m the original. [facility] PT [address] [place] [address] Physical Therapy Daily Treatment Note Date: 09/21/2018 [...] in favor of SL heel raise with PROCESSING MANAGER. ONGOING: SLS on even surface 3x30 seconds [...] 2019 | | | DO [address] | | | | | | [place] [address] | | | | | | [phone] | | | | | | | | | | | | Julia Fisher, | | | | | | PT | | +--------+ + + + + | 02/18/ | Appointment | Rehabilitation | Erika Ernst, | | | 2019 | | | DO [address] | | | | | | [place] [address] | | | | | | [phone] | | | | | | | | | | | | [facility] | | +--------+ + + + + | 02/25/ | Office | Primary Care | Erika Ernst, | | | 2019 | Visit | | DO [address] | | | | | | [place] [address] | | | | | | [phone] | | | | | | | [...] | | | | | [place] [address] | | | | | | [phone] | | | | | | | | +--------+ + + + + | 02/27/ | Appointment | Radiology | Dhara, | | | 2019 | | | DWAINE Ross [address] [place], | | | | | | [place] [address] | | | | | | [phone] | | | | | | | [...] | | | | | [place] [address] | | | | | | [phone] | | | | | | | [...] [place] | | | | | | [address] | | | | | | [phone] | | | | | | | [...] | | | | | [place] [address] | | | | | | [phone] | | | | | | | | | | | | Azul Yeboah, | | | | | | MD [address] | | | | | | [place] | | | | | | [place] [address] | | | | | | [phone] | | | | | | | [...] | | | | | | [place] [address] | | | | | | [phone] | | | | | | | | +--------+ + + + + documented as of this encounter Visit Diagnoses + + | Diagnosis | + + | Sprain of left ankle, subsequent encounter - Primary | + + documented in this encounter
--- OUTSIDE RECORDS SUMMARY | ~2020-02-18 | XMS | Encounter Summary ---
Demographics + + + | Address | [address] | | | [place] [address] | + + + | Home Phone [...] Team Providers + +------+ + | Care Repertoire Manager Name | Role | Phone | [...] | [facility] | [place] [address] | | | | [address] [place], | [phone] | | | | | [place] [address] | | | | | | [phone] | | | +--------+ + + + [...] | | | | | [place] [address] | | | | | | [phone] | | | | | | | | | | | | Forma, Julia M, | | | | | | PT | | +--------+ + + + + | 02/18/ | Appointment | Rehabilitation | Erika Ernst, | | | 2019 | | | DO [address] | | | | | | [place] [address] | | | | | | [phone] | | | | | | | | | | | | [facility] OT | | +--------+ + + + + | 02/25/ | Office | Primary Care | Erika Ernst, | | | 2019 | Visit | | DO [address] | | | | | | [place] [address] | | | | | | [phone] | | | | | | | [...] | | | | | [place] [address] | | | | | | [phone] | | | | | | | | +--------+ + + + + | 02/27/ | Appointment | Radiology | Dhara, | | | 2019 | | | DWAINE Ross [address] | | | | | | [address] [facility], | | | | | | [place] [address] | | | | | | [phone] | | | | | | | [...] ST | | | | | | [place] [address] | | | | | | [phone] | | | | | | | [...] [place] | | | | | | [address] | | | | | | [phone] | | | | | | | [...] | | | | | [place] [address] | | | | | | [phone] | | | | | | | | | | | | Azul Yeboah, | | | | | | MD [address] | | | | | | [place] [place] | | | | | | [place] [address] | | | | | | [phone] | | | | | | | [...] | | | | | | [place] [address] | | | | | | [phone] | | | | | | | | +--------+ + + + + documented as of this encounter Visit Diagnoses Not on filedocumented in this encounter"
--- OUTSIDE RECORDS SUMMARY | ~2020-02-18 | XMS | Encounter Summary ---
Demographics + + + | Address | [address] | | | [place] [address] | + + + | Home Phone [...] Providers + +------+ + | Care Hide Cooking Operator Name | Role | Phone | [...] + + + + | 03/20/ | Anesthesia | [facility] | Maxi Monique, | | | 2019 | Event | [facility] | LINES TENDER [address] | | | | | [address] | [place] [address] | | | | | [place], [place] | [phone] | | | | | [address] | | | | | | [phone] | | | +--------+ + + + + Anesthesia Record + + + + + | Procedure Name | Responsible | Anesthesia Start | Anesthesia Stop Time | | | Anesthesiologist | Time | | + + + + + | AURORA Peralta Tendon | Maxi Monique, | 03/20/19 09 | 03/20/19 1048 | | (Right Arm Lower) | LINES TENDER | | | + + + + + +----+---+ + + | Da | T | Event | Comment | | te | i | | | | | m | | | | | e | | | +----+---+ + + | 06 | 0 | | | | /1 | 9 | | | | 9/ | 1 | | | | 20 | 5 | | | | 19 | | | | +----+---+ + + | | 0 | An Checkout | Pre-use anesthesia machine/equipment checkout. | | | 9 | | | | | 1 | | | | | 5 | | | +----+---+ + + | | 0 | An Start | Reassessment prior to anesthesia induction/procedure. | | | 9 | | | | | 2 | | | | | 7 | | | +----+---+ + + | | 0 | Preoxygenat | | | | 9 | ed | | | | 2 | | | | | 7 | | | +----+---+ + + | | 0 | An | | | | 9 | Induction | | | | 3 | | | | | 2 | | | +----+---+ + + | | 0 | An | | | | 9 | Intubation | | | | 3 | | | | | 2 | | | +----+---+ + + | | 0 | Pre-Procedu | | | | 9 | ral Timeout | | | | 3 | Completed | | | | 6 | | | +----+---+ + + | | 0 | First | | | | 9 | Inc/Proc St | | | | 3 | | | | | 8 | | | +----+---+ + + | | 0 | [place] | | | | 9 | 43-degrees | | | | 4 | | | | | 3 | | | +----+---+ + + | | 1 | Breathing | | | | 0 | Spontaneous | | | | 4 | ly | | | | 3 | | | +----+---+ + + | | 1 | Oropharynx | | | | 0 | Suctioned | | | | 4 | | | | | 4 | | | +----+---+ + + | | 1 | Extubation/ | | | | 0 | Airway LDA | | | | 4 | Removal | | | | 4 | | | +----+---+ + + | | 1 | an stop | | | | 0 | data | | | | 4 | | | | | 6 | | | +----+---+ + + | | 1 | An Stop | Patient handed off to recovery nurse. | | | 4 | | | | | 8 | | | +----+---+ + + +------+ | Meds | +------+ + +---------+ | Name | Total | + +---------+ | midazolam 1 mg/mL (2 mL vial) | 2 mg | + +---------+ | fentaNYL | 175 mcg | + +---------+ | lidocaine 2% | 100 mg | + +---------+ | propofol | 200 mg | + +---------+ | succinylcholine | 120 mg | + +---------+ | rocuronium 10 mg/mL | 40 mg | + +---------+ | dexamethasone 10 mg/mL | 4 mg | + +---------+ | ondansetron | 4 mg | + +---------+ | ketorolac (30 mg/mL) | 30 mg | + +---------+ | ceFAZolin in dextrose (ANCEF) | 1 g | | IVPB 1 g | | + +---------+ | lactated ringers (LR) infusion | 0 mL | + +---------+ + + | Name | + + | N2O Flow Rate (L/Min) | + + | O2 Flow Rate (L/Min) | + + | Insp O2 | + + | Exp N2O | + + | Exp SEV | + + | Exp ISO | + + | Exp KYAW | + + | Air Flow Rate (L/Min) | + + + + | No blood administrations on file. | + + +--------+ + + + | Type | Details | Placement | Removal | +--------+ + + + | Wound | 03/20/19; 1027; Incision; Right; | 03/20/19 1027 by | | | | arm | Aries Rollins RN | | +--------+ + + + | Periph | 03/20/19; 0847; Left; | 03/20/19 0847 by Corine | 03/20/19 1220 by | | eral | Antecubital; [id number] | Elaine Phelan RN | Anastasia Ceron RN | | IV | catheter system; 20 gauge; Other | | | | | (see comment) (hcg); 2; | | | | | distraction, appears comfortable, | | | | | tolerated well; no longer | | | | | indicated, catheter/device | | | | | intact; expected removal post | | | | | discharge; 03/20/19; 1220 | | | +--------+ + + + | Airway | Placement Date: 03/20/19; | 03/20/19914 by | 03/20/19 1044 by | | | Placement Time: 914; Airway | Maxi Monique, | Maxi Monique, | | | Type: endotracheal; Removal Date: | LINES TENDER | LINES TENDER | | | 03/20/19; Removal Time: 1043 | | | +--------+ + + + documented in this encounter Social History + +-------+ +--------+------+ | Tobacco [...] | | | | | [place] [address] | | | | | | [phone] | | | | | | | | | | | | Julia Fisher, | | | | | | PT | | +--------+ + + + + | 02/18/ | Appointment | Rehabilitation | Erika Ernst, | | | 2019 | | | DO [address] [place] | | | | | | [place] [address] | | | | | | [phone] | | | | | | | | | | | | Genesis Ayon OT | | +--------+ + + + + | 02/25/ | Office | Primary Care | Erika Ernst, | | | 2019 | Visit | | DO [address] [place] | | | | | | [place] [address] | | | | | | [phone] | | | | | | | [...] | | | | | [place] [address] | | | | | | [phone] | | | | | | | | +--------+ + + + + | 02/27/ | Appointment | Radiology | Dhara, | | | 2019 | | | [address] | | | | | | [address] [facility] [place], | | | | | | [place] [address] | | | | | | [phone] | | | | | | | [...] [address] | | | | | | [place] [address] | | | | | | [phone] | | | | | | | [...] [place] | | | | | | [address] | | | | | | [phone] | | | | | | | [...] | | | | | [place] [address] | | | | | | [phone] | | | | | | | | | | | | Azul Yeboah, | | | | | | MD [address] | | | | | | [place] | | | | | | [place] [address] | | | | | | [phone] | | | | | | | | +--------+ + + + + | 04/08/ | Appointment | Nutrition | Janel Webster | | | 2019 | | | G, RD | | +--------+ + + + + | 05/21/ | Office | Neurology | Dhara, | | | 2019 | Visit | | Karyanne, INJECTION MOULDING MACHINE OPERATOR [address] | | | | | | [address] [place], | | | | | | [place] [address] | | | | | | [phone] | | | | | | | | +--------+ + + + + documented as of this encounter Visit Diagnoses Not on filedocumented in this encounter Administered Medications + +--------+ +------+------+------+ | Medication Order | MAR | Action | Dose | Rate | Site | | | Action | Date | | | | + +--------+ +------+------+------+ | ceFAZolin in dextrose (ANCEF) | Given | 03/20/20 | 1 g | | | | IVPB 1 g 1 g, Intravenous, | | 19 9:24 | | | | | Administer over 30 Minutes, Prior | | AM PDT | | | | | to Incision, Starting Wed | | | | | | | 03/20/19 at 0823, For 1 dose, | | | | | | | Pre-op, Indications: Surgical | | | | | | | Prophylaxis | | | | | | + +--------+ +------+------+------+ +---+---+ | | | +---+---+ + +-------+ +------+---+---+ | dexamethasone (DECADRON) 10 | Given | 03/20/20 | 4 mg | | | | mg/mL injection Intravenous, | | 19 9:40 | | | | | PRN, Starting Mon03/20/19 at | | AM PDT | | | | | 0940, Anesthesia Intra-op | | | | | | + +-------+ +------+---+---+ +---+---+ | | | +---+---+ + +-------+ +--------+---+---+ | fentaNYL (PF) injection | Given | 03/20/20 | 25 mcg | | | | Intravenous, PRN, Starting Mon | | 19 10:36 | | | | | 03/20/19 at 0946, Anesthesia | | AM PDT | | | | | Intra-op | | | | | | + +-------+ +--------+---+---+ +-------+ +--------+---+---+ | Given | 03/20/20 | 25 mcg | | | | | 19 10:34 | | | | | | AM PDT | | | | +-------+ +--------+---+---+ | Given | 03/20/20 | 25 mcg | | | | | 19 10:32 | | | | | | AM PDT | | | | +-------+ +--------+---+---+ +---+---+ | | | +---+---+ + +-------+ +-------+---+---+ | ketorolac (TORADOL) injection | Given | 03/20/20 | 30 mg | | | | Intravenous, PRN, Starting Wed | | 19 10:30 | | | | | 03/20/19 at 1030, Anesthesia | | AM PDT | | | | | Intra-op | | | | | | + +-------+ +-------+---+---+ +---+---+ | | | +---+---+ + +-------+ +--------+---+---+ | lidocaine 2% injection PRN, | Given | 03/20/20 | 100 mg | | | | Starting 03/20/19 at 0932, | | 19 9:32 | | | | | Anesthesia Intra-op | | AM PDT | | | | + +-------+ +--------+---+---+ +---+---+ | | | +---+---+ + +-------+ +------+---+---+ | midazolam (VERSED) 1 mg/mL | Given | 03/20/20 | 2 mg | | | | injection Intravenous, PRN, | | 19 9:29 | | | | | Starting 03/20/19 at 0929, | | AM PDT | | | | | Anesthesia Intra-op | | | | | | + +-------+ +------+---+---+ +---+---+ | | | +---+---+ + +-------+ +------+---+---+ | ondansetron (ZOFRAN) injection | Given | 03/20/20 | 4 mg | | | | Intravenous, PRN, Starting Wed | | 19 10:30 | | | | | 03/20/19 at 1030, Anesthesia | | AM PDT | | | | | Intra-op | | | | | | + +-------+ +------+---+---+ +---+---+ | | | +---+---+ + +-------+ +--------+---+---+ | propofol (DIPRIVAN) injection | Given | 03/20/20 | 200 mg | | | | Intravenous, PRN, Starting Wed | | 19 9:32 | | | | | 03/20/19 at 0932, Anesthesia | | AM PDT | | | | | Intra-op | | | | | | + +-------+ +--------+---+---+ +---+---+ | | | +---+---+ + +-------+ +-------+---+---+ | rocuronium (ZEMURON) injection | Given | 03/20/20 | 40 mg | | | | Intravenous, PRN, Starting Wed | | 19 9:38 | | | | | 03/20/19 at 0938, Anesthesia | | AM PDT | | | | | Intra-op | | | | | | + +-------+ +-------+---+---+ +---+---+ | | | +---+---+ + +-------+ +--------+---+---+ | succinylcholine (ANECTINE) | Given | 03/20/20 | 120 mg | | | | injection Intravenous, PRN, | | 19 9:32 | | | | | Starting 03/20/19 at 0932, | | AM PDT | | | | | Anesthesia Intra-op | | | | | | + +-------+ +--------+---+---+ +---+---+ | | | +---+---+ documented in this encounter"
--- OUTSIDE RECORDS SUMMARY | ~2020-02-18 | XMS | Encounter Summary ---
Demographics + + + | Address | [address] | | | [place] [address] | + + + | Home Phone [...] Team Providers + +------+ + | Care Mechanical Meter Tester Name | Role | Phone | [...] | | | [place], [place] | [address] | | | | | [address] | [phone] | | | | | [phone] | | | +--------+ + + + [...] | | | | | [place] [address] | | | | | | [phone] | | | | | | | | | | | | Julia Fisher, | | | | | | PT | | +--------+ + + + + | 02/18/ | Appointment | Rehabilitation | Erika Ernst, | | | 2019 | | | DO [address] [place] | | | | | | [place] [address] | | | | | | [phone] | | | | | | | | | | | | Genesis Ayon, OT | | +--------+ + + + + | 02/25/ | Office | Primary Care | Erika Ernst, | | | 2019 | Visit | | DO [address] [place] | | | | | | [place] [address] | | | | | | [phone] | | | | | | | [...] | | | | | [place] [address] | | | | | | [phone] | | | | | | | | +--------+ + + + + | 02/27/ | Appointment | Radiology | Dhara, | | | 2019 | | | [address] | | | | | | [address] [facility], | | | | | | [place] [address] | | | | | | [phone] | | | | | | | | +--------+ + + + + | 03/04/ | Appointment | Rehabilitation | Genesis Ayon OT | | | 2019 | | | | | +--------+ + + + + | 03/09/ | Office | Orthopedic Surgery | Jeffrey Gandhi, | | | 2019 | Visit | | [address] | | | | | | [place] [address] | | | | | | [phone] | | | | | | | [...] [place] | | | | | | [address] | | | | | | [phone] | | | | | | | [...] | | | | | [place] [address] | | | | | | [phone] | | | | | | | | | | | | Azul Yeboah, | | | | | | MD [address] | | | | | | [place] | | | | | | [place] [address] | | | | | | [phone] | | | | | | | [...] | | | | | | [place] [address] | | | | | | [phone] | | | | | | | | +--------+ + + + + documented as of this encounter Visit Diagnoses Not on filedocumented in this encounter"
--- OUTSIDE RECORDS SUMMARY | ~2020-02-18 | XMS | Encounter Summary ---
Demographics + + + | Address | [address] | | | [place] [address] | + + + | Home Phone [...] Team Providers + +------+ + | Care Block And Case Maker Name | Role | Phone | [...] | [facility] | [place] [address] | | | | [address] [place], | [phone] | | | | | [place] [address] | | | | | | [phone] | | | +--------+ + + + [...] | | | | | [place] [address] | | | | | | [phone] | | | | | | | | | | | | Forma, Julia M, | | | | | | PT | | +--------+ + + + + | 02/18/ | Appointment | Rehabilitation | Erika Ernst, | | | 2019 | | | DO [address] [place] | | | | | | [place] [address] | | | | | | [phone] | | | | | | | | | | | | Genesis Ayon OT | | +--------+ + + + + | 02/25/ | Office | Primary Care | Erika Ernst, | | | 2019 | Visit | | DO [address] [place] | | | | | | [place] [address] | | | | | | [phone] | | | | | | | [...] | | | | | [place] [address] | | | | | | [phone] | | | | | | | | +--------+ + + + + | 02/27/ | Appointment | Radiology | Dhara, | | 2019 | | | [address] | | | | | | [address] [facility], | | | | | | [place] [address] | | | | | | [phone] | | | | | | | [...] [place] | | | | | | [place] [address] | | | | | | [phone] | | | | | | | [...] [place] | | | | | | [address] | | | | | | [place] | | | | | | [address] | | | | | | [phone] | | | | | | | [...] | | | | | [place] [address] | | | | | | [phone] | | | | | | | | | | | | Azul Yeboah, | | | | | | MD [address] | | | | | | [place] | | | | | | [place] [address] | | | | | | [phone] | | | | | | | [...] | | | | | | [place] [address] | | | | | | [phone] | | | | | | | | +--------+ + + + + documented as of this encounter Visit Diagnoses Not on filedocumented in this encounter"
--- OUTSIDE RECORDS SUMMARY | ~2020-02-18 | XMS | Encounter Summary ---
Demographics + + + | Address | [address] | | | [place] [address] | + + + | Home Phone [...] Team Providers + +------+ + | Care Math And Physics Instructor Name | Role | Phone | [...] Results | | 2020 | | [facility] | [place], [address] | | | | | [facility] [address] | [address] [place] | | | | | [address] [place], | [place] [address] | | | | | [place] [address] | [phone] | | | | | [phone] | | | +--------+ + + + [...] | | | | | [place] [address] | | | | | | [phone] | | | | | | | | | | | | Julia Fisher, | | | | | | PT | | +--------+ + + + + | 02/18/ | Appointment | Rehabilitation | Erika Ernst, | | | 2019 | | | DO [address] [place] | | | | | | [place] [address] | | | | | | [phone] | | | | | | | | | | | | Genesis Ayon OT | | +--------+ + + + + | 02/25/ | Office | Primary Care | Erika Ernst, | | | 2019 | Visit | | DO [address] [place] | | | | | | [place] [address] | | | | | | [phone] | | | | | | | [...] | | | | | | [place] [address] | | | | | | [phone] | | | | | | | | +--------+ + + + + | 02/27/ | Appointment | Radiology | Dhara, | | 2019 | | | [address] | | | | | | [address] [facility], | | | | | | [place] [address] | | | | | | [phone] | | | | | | | | +--------+ + + + + | 03/04/ | Appointment | Rehabilitation | Genesis Ayon OT | | | 2019 | | | | | +--------+ + + + + | 03/09/ | Office | Orthopedic Surgery | Jeffrey Gandhi, | | | 2019 | Visit | | [address] | | | | | | [place] [address] | | | | | | [phone] | | | | | | | [...] [place] | | | | | | [address] | | | | | | [phone] | | | | | | | [...] | | | | | [place] [address] | | | | | | [phone] | | | | | | | | | | | | Azul Yeboah, | | | | | | [address] | | | | | | [place] | | | | | | [place] [address] | | | | | | [phone] | | | | | | | [...] | | | | | | [address] [place], | | | | | | [place] [address] | | | | | | [phone] | | | | | | | | +--------+ + + + + documented as of this encounter Visit Diagnoses Not on filedocumented in this encounter"
--- OUTSIDE RECORDS SUMMARY | ~2020-02-18 | XMS | Encounter Summary ---
Demographics + + + | Address | [address] | | | [place] [address] | + + + | Home Phone [...] Providers + +------+ + | Care Director Script Name | Role | Phone | + [...] | | | | s (de | [place], [place] | [place] [address] | | | | | quervain) | [address] | Phone: | | | | | Pain in | Phone: | [phone] | | | | | right wrist | [phone] | Fax: | | | | | Procedures | Fax: | [phone] | | | | | OT TREAT | [phone] | | +--------+--------+ + + + + Encounter Details +--------+ + + + + | Date | Type | Department | Care Team | Description | +--------+ + + + + | 12/21/ | Hospital | [facility] [facility] | Jeffrey Gandhi, | Radial styloid | | 2019 | Encounter | HOSPITAL [facility] OT | [address] | tenosynovitis | | | | [address] [place] | [place] [address] | (Primary Dx); Right | | | | [place], [place] | [phone] | wrist pain | | | | [address] | | | | | | [phone] | Nakia Koo OT | | +--------+ [...] | 11/26/19 | | | (VITAMIN D3) [address] | mouth Once a week | tablet [...] encounter Progress Notes Nakia Koo, OT - 12/21/2018 9:31 AM PDT [facility] THERAPY OT [address] [place] [address] Occupational Therapy Progress Assessment Date: 12/21/2018 Patient Information Patient Name: Andrea Suh Date of : 1990 Age: 28 y.o. Encounter Diagnoses Code Name Primary? M65.4 Radial styloid tenosynovitis Yes M25.531 Right wrist pain Date of Onset: 07/20/2018 Referring Provider: Jeffrey Gandhi MD Objective Pain Assessment: Pain Rating Pre Assessment: 3 Location: Pain ranges from 3-5/10, exacerbated by computer work. Standardized Tests: QuickDASH (QD) Open a tight or new jar: 3 - Moderate Difficulty Do heavy company doctor: 2 - Mild Difficulty Carry a shopping bag or briefcase: 1 - No Difficulty Wash your back: 1 - No Difficulty Use a Knife to cut food: 1 - No Difficulty Recreational Activities which impact the UE: 1 - No Difficulty Interfered with Social Activities: 3 - Moderately Limit Work or Regular Daily Activities: 4 - Very Limited Arm, shoulder or hand pain: 3 - Moderate Tingling in arm, shoulder or hand: 1 - None Difficulty Sleeping due to pain in UE: 2 - Mild Difficulty QuickDASH Mean Score (Calculated): 2 QuickDASH Disability/Symptom Score (Calculated): 25 QuickDASH Goal: The pt will have increased functional use of her right hand indicated by a QuickDASH score of 15% with pain no greater than 2/10 with daily activities by discharge QuickDASH Goal Status: PARTIALLY MET at PN 12/21/18 - Functional status has remained stable indicated with a QuickDASH score of 25% and pain ranges from 3-5/10 with daily activities Range of Motion (measured in degrees): RUE AROM (degrees) R Forearm Pron: 80 R Forearm Sup: 63 R Wrist Flex: 73 R Wrist Ext : 60 R Wrist Radial Deviation: 18 R Wrist Ulnar Deviation: 21 Strength: Left Hand Strength - Towerman (lbs) L Towerman Trial 1: 41 L Towerman Trial Average: 41 Right Hand Strength - Towerman (lbs) R Towerman Trial 1: 24 R Towerman Trial Average: 24 Today's Treatment Patient Name: Andrea Suh/: 1990/ Start Time: 0803 Stop time: 0845 Duration: 42 minutes Timed Treatment Codes: 33 minutes # of OT Visits: 23.15 Visit Summary: S: The therapy helps for a day or two but there has not been significant car ry over of benefit. I am pursuing a second opinion and agree that we should put therapy on h old for now. A: Discussion on gains made from therapy and acknowledging that therapy provide s temporary relief but no significant or sustained benefit. Plan to hold therapy until furth er diagnostic work is done. Pt provided with manual therapy for symptom management. Next Visit: Hold - determine course of therapy following Dr appointment Interventions OT MANUAL THERAPY 1: Manual (20 minutes): IASTM, K taping to R wrist/FA for support, OT MODALITY 2: Ultra sound - 13 minutes: 3.3 M.Hz at 1.0 intensity in warm water bath for p enetrating heat to decrease pain and inflammation. 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 Her arya b description may be changing which would decrease the physical demands of her work, making it more appropriate for her current status. 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 10/30/2018 - REASON FOR RE-CERTIFICATION: Andrea has received 12 Occupational Therapy treatme nts since 08/07/2018 following her right wrist surgery. She has regained full AROM of the rig ht wrist but continues to have right wrist, waste transportation technician and pinch weakness and significant pain (3- [...] in 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, and waste transportation technician and pinch weakness in the right hand [...] return to work. Rehabilitation potential: Patient demonstrates fair potential to [...] QuickDASH Goal Status: PARTIALLY MET at PN 12/21/18 - Functional status has remained stable indicated with a QuickDASH score of 25% and pain ranges from 3-5/10 with daily activities OP OT Goals Goal 1: The pt will have right wrist and thumb AROM to 90% of the left by discharge Goal 1 Status: ACHIEVED - Right wrist YANES is 98% of left (325/331) Goal 2: The pt will have right waste transportation technician strength of 50 lbs by discharge Goal 2 Status: PARTIALLY MET at PN 12/21/2018 -right waste transportation technician strength has stayed stable at 24 l bs this month Goal 4: The pt will be independent and compliant with HEP Goal 4 Status: ONGOING - pt reports daily compliance with HEP which includes wrist, waste transportation technician an d pinch strengthening as well as general UE strengthening Plan Date of Onset: 07/20/2018 Start of Care Date: 08/07/2018 Requested # of Visits: 24 visits 2x/week for 12 weeks Certification From: 10/30/2018 Certification To: 01/22/2019 Treatment Plan/Interventions OT [id number] - Therapeutic [id number] - Therapeutic [id number] - Self Care/Ho me [id number] - Manual [id number] - Orthotic/Prosthetic Vhmwzkva12597 - Rjalzmhtyo786 34 - Contrast Kktx47361 - Paraffin BathSplinting Moist heat, cold therapy Patient and/or family has indicated understanding of treatment needs and actively participa everardo in the creation of this plan for care. Electronically signed by: Nakia Koo OT, 12/21/2018 9:31 Patient Name: Andrea Henaonanci/: 1990/ signed by Nakia Koo OT at 12/21/2018 9:34 AM PDTdocumented in this encounter Plan of Treatment +--------+ + + + + | Date | Type | Specialty | Care Team | Description | +--------+ + + + + | 02/18/ | Appointment | Rehabilitation | Erika Ernst, | | | 2019 | | | DO [address] [place] | | | | | | [place] [address] | | | | | | [phone] | | | | | | | | | | | | Julia Fisher, | | | | | | PT | | +--------+ + + + + | 02/18/ | Appointment | Rehabilitation | Erika Ernst, | | | 2019 | | | DO [address] [place] | | | | | | [place] [address] | | | | | | [phone] | | | | | | | | | | | | Genesis Ayon OT | | +--------+ + + + + | 02/25/ | Office | Primary Care | Erika Ernst, | | | 2019 | Visit | | DO [address] [place] | | | | | | [place] [address] | | | | | | [phone] | | | | | | | [...] | | | | | [place] [address] | | | | | | [phone] | | | | | | | | +--------+ + + + + | 02/27/ | Appointment | Radiology | Dhara, | | | 2019 | | | [address] | | | | | | [address] [place], | | | | | | [place] [address] | | | | | | [phone] | | | | | | | | +--------+ + + + + | 03/04/ | Appointment | Rehabilitation | Genesis Ayon OT | | | 2019 | | | | | +--------+ + + + + | 03/09/ | Office | Orthopedic Surgery | Jeffrey Gandhi, | | | 2019 | Visit | | [place] [address] [facility] | | | | | | [place] [address] | | | | | | [phone] | | | | | | | [...] [place] | | | | | | [address] | | | | | | [phone] | | | | | | | [...] [address] | | | | | | [phone] | | | | | | | | | | | | Azul Yeboah, | | | | | | MD [address] | | | | | | [place] | | | | | | [place] [address] | | | | | | [phone] | | | | | | | [...] | | | | | | [place] [address] | | | | | | [phone] | | | | | | | | +--------+ + + + + documented as of this encounter Visit Diagnoses + + | Diagnosis | + + | Radial styloid tenosynovitis - Primary | + + | Right wrist pain Pain in joint, forearm | + + documented in this encounter"
--- OUTSIDE RECORDS SUMMARY | ~2020-02-18 | XMS | Encounter Summary ---
Demographics + + + | Address | [address] | | | [place] [address] | + + + | Home Phone [...] Providers + +------+ + | Care Computer Security Coordinator Name | Role | Phone | [...] | | | [place] | [place] [address] | [place] [address] | | | | | | Phone: | Phone: | | | | | | [phone] | [phone] | | | | | | Fax: | Fax: | | | | | | [phone] | [phone] | +--------+--------+ + + + + Encounter [...] [address] | [place] [address] | Sprain of | | | | [place], [place] | [phone] | calcaneofibular | | | | [address] | | ligament of left | | | | [phone] | Julia Peña, | ankle, subsequent | | | | | COREMAKER HELPER | encounter; History | | | | [...] | 11/26/19 | | | (VITAMIN D3) 72035 | mouth Once a week | tablet [...] 1:10 PM PDTICD 10 codes updated per reliability manager request see below: Coding has been updated for this PT series ([id number]) based on the documentation on the plan of care. Please code visit diagnoses as follows: Primary: M25.561 Pain in right knee Secondary: S93.402D Sprain of unspecified ligament of left ankle, subsequent encounter E66.9 Obesity, unspecified Z91.81 History of falling Electronically signed by: Julia Fisher PT, 01/16/2019 13:10 Julia Banks, COREMAKER HELPER - 01/16/2019 8:53 AM PDT . [facility] PT [address] [place] [address] Physical Therapy Daily Treatment Note Date: 01/16/2019 [...] Seated marching 1minx2. LAQ Ongoing: Wall sits [id number] holds, Bridging 3 x 10 reps, Side [...] | | | | | [place] [address] | | | | | | [phone] | | | | | | | | | | | | Julia Fisher, | | | | | | PT | | +--------+ + + + + | 02/18/ | Appointment | Rehabilitation | Erika Ernst, | | | 2019 | | | DO [address] [place] | | | | | | [place] [address] | | | | | | [phone] | | | | | | | | | | | | Genesis Ayon OT | | +--------+ + + + + | 02/25/ | Office | Primary Care | Erika Ernst, | | | 2019 | Visit | | DO [address] | | | | | | [place] [address] | | | | | | [phone] | | | | | | | [...] | | | | | [place] [address] | | | | | | [phone] | | | | | | | | +--------+ + + + + | 02/27/ | Appointment | Radiology | Dhara, | | | 2019 | | | [address] | | | | | | 4TH [facility], | | | | | | [place] [address] | | | | | | [phone] | | | | | | | | +--------+ + + + + | 03/04/ | Appointment | Rehabilitation | Genesis Ayon OT | | | 2019 | | | | | +--------+ + + + + | 03/09/ | Office | Orthopedic Surgery | Jeffrey Gandhi, | | | 2019 | Visit | | [address] | | | | | | [place] [address] | | | | | | [phone] | | | | | | | [...] | | | | | | [address] | | | | | | [place] | | | | | | [address] | | | | | | [phone] | | | | | | | [...] | | | | | [place] [address] | | | | | | [phone] | | | | | | | | | | | | Azul Yeboah, | | | | | | MD [address] | | | | | | [place] | | | | | | [place] [address] | | | | | | [phone] | | | | | | | [...] | | | | | | [place] [address] | | | | | | [phone] | | | | | | | [...]
--- OUTSIDE RECORDS SUMMARY | ~2020-02-18 | XMS | Encounter Summary ---
Demographics + + + | Address | [address] | | | [place] [address] | + + + | Home Phone [...] Team Providers + +------+ + | Care Screen Door Maker Name | Role | Phone | [...] | +--------+ + + + + | 12/29/ | Telephone | [place] [facility] | Emily Avery | Advice Only | | 2019 | | [facility] | DO Rad[address] | | | | | [address] | [address] | | | | | [address] [place], | [place], [place] | | | | | [place] [address] | [address] | | | | | [phone] | [phone] | | | | | | | [...] | | 2019 | | | DO [facility] | | | | | | [place] [address] | | | | | | [phone] | | | | | | | | | | | | Julia Fisher, | | | | | | PT | | +--------+ + + + + | 02/18/ | Appointment | Rehabilitation | Erika Ernst, | | | 2019 | | | DO [address] [place] | | | | | | [place] [address] | | | | | | [phone] | | | | | | | | | | | | Genesis Ayon OT | | +--------+ + + + + | 02/25/ | Office | Primary Care | Erika Ernst, | | | 2019 | Visit | | DO [address] [place] | | | | | | [place] [address] | | | | | | [phone] | | | | | | | [...] | | | | | [place] [address] | | | | | | [phone] | | | | | | | | +--------+ + + + + | 02/27/ | Appointment | Radiology | Dhara, | | | 2019 | | | [address] | | | | | | 4TH [facility], | | | | | | [place] [address] | | | | | | [phone] | | | | | | | | +--------+ + + + + | 03/04/ | Appointment | Rehabilitation | Genesis Ayon OT | | | 2019 | | | | | +--------+ + + + + | 03/09/ | Office | Orthopedic Surgery | Jeffrey Gandhi, | | | 2019 | Visit | | [address] | | | | | | [place] [address] | | | | | | [phone] | | | | | | | [...] [place] | | | | | | [address] | | | | | | [phone] | | | | | | | [...] | | | | | [place] [address] | | | | | | [phone] | | | | | | | | | | | | Azul Yeboah, | | | | | | MD [address] | | | | | | [place] | | | | | | [place] [address] | | | | | | [phone] | | | | | | | [...] | | | | | [address] [place], | | | | | | [place] [address] | | | | | | [phone] | | | | | | | | +--------+ + + + + documented as of this encounter Visit Diagnoses Not on filedocumented in this encounter"
--- OUTSIDE RECORDS SUMMARY | ~2020-02-18 | XMS | Encounter Summary ---
Demographics + + + | Address | [address] | | | [place] [address] | + + + | Home Phone [...] Providers + +------+ + | Care Clinical Biostatistics Director Name | Role | Phone | [...] F | F [place], [place] | letter) | | | | [place] | [address] | | | | | [address] | | | | | | [phone] | | | +--------+ + + + [...] | | | | | [place] [address] | | | | | | [phone] | | | | | | | | | | | | Julia Fisher, | | | | | | PT | | +--------+ + + + + | 02/18/ | Appointment | Rehabilitation | Erika Ernst, | | | 2019 | | | DO [address] | | | | | | [place] [address] | | | | | | [phone] | | | | | | | | | | | | Genesis Ayon OT | | +--------+ + + + + | 02/25/ | Office | Primary Care | Erika Ernst, | | | 2019 | Visit | | DO [address] | | | | | | [place] [address] | | | | | | [phone] | | | | | | | [...] | | | | | | [place] [address] | | | | | | [phone] | | | | | | | | +--------+ + + + + | 02/27/ | Appointment | Radiology | Dhara, | | | 2019 | | | [address] | | | | | | [facility] | | | | | | [place] [address] | | | | | | [phone] | | | | | | | | +--------+ + + + + | 03/04/ | Appointment | Rehabilitation | Genesis Ayon OT | | 2019 | | | | | +--------+ + + + + | 03/09/ | Office | Orthopedic Surgery | Jeffrey Gandhi, | | | 2019 | Visit | | [address] | | | | | | [place] [address] | | | | | | [phone] | | | | | | | [...] [place] | | | | | | [address] | | | | | | [phone] | | | | | | | [...] | | | | | [place] [address] | | | | | | [phone] | | | | | | | | | | | | Azul Yeboah, | | | | | | MD [address] | | | | | | [place] | | | | | | [place] [address] | | | | | | [phone] | | | | | | | [...] | | | | | | [place] [address] | | | | | | [phone] | | | | | | | | +--------+ + + + + documented as of this encounter Visit Diagnoses Not on filedocumented in this encounter"
--- OUTSIDE RECORDS SUMMARY | ~2020-02-18 | XMS | Encounter Summary ---
Demographics + + + | Address | [address] | | | [place] [address] | + + + | Home Phone [...] Providers + +------+ + | Care Senior Lead Software Engineer Name | Role | Phone | + +------+ + PCP | Unavailable | + +------+ + Encounter Details +--------+ + + + + | Date | Type | Department | Care Team | Description | +--------+ + + + + | 08/24/ | [facility] [place] [facility] | Denise Mcgregor | | | 2016 | Encounter | [facility] | G, SLIDE DEVELOPER | | | | | MEDICAL CLINIC [address] | | | | | | 4TH [facility] [place], | | | | | | [place] [address] | | | | | | [phone] | | | +--------+ + + + [...] | | | | | [place] [address] | | | | | | [phone] | | | | | | | | | | | | Julia Fisher, | | | | | | PT | | +--------+ + + + + | 02/18/ | Appointment | Rehabilitation | Erika Ernst, | | 2019 | | | DO [address] [place] | | | | | | [place] [address] | | | | | | [phone] | | | | | | | | | | | | Genesis Ayon, SUSAN | | +--------+ + + + + | 02/25/ | Office | Primary Care | Erika Ernst, | | | 2019 | Visit | | DO [address] [place] [address] | | | | | | [place] [address] | | | | | | [phone] | | | | | | | [...] | | | | | [place] [address] | | | | | | [phone] | | | | | | | | +--------+ + + + + | 02/27/ | Appointment | Radiology | Dhara, | | | 2019 | | | [address] | | | | | [address] [place], | | | | | | [place] [address] | | | | | | [phone] | | | | | | | [...] | | | | | [place] [address] | | | | | | [phone] | | | | | | | [...] [place] | | | | | | [address] | | | | | | [phone] | | | | | | | [...] | | | | | [place] [address] | | | | | | [phone] | | | | | | | | | | | | Azul Yeboah, | | | | | | MD [address] | | | | | | [place] | | | | | | [place] [address] | | | | | | [phone] | | | | | | | [...] | | | | | | [place] [address] | | | | | | [phone] | | | | | | | | +--------+ + + + + documented as of this encounter Visit Diagnoses Not on filedocumented in this encounter"
--- OUTSIDE RECORDS SUMMARY | ~2020-02-18 | XMS | Encounter Summary ---
Demographics + + + | Address | [address] | | | [place] [address] | + + + | Home Phone [...] Team Providers + +------+ + | Care Coagulator Name | Role | Phone | + [...] 08/08/ | Telephone | [place] [facility] | HuertaVeronica, | Lab Results | | 2017 | | [facility] | [employer] | | | | | MEDICAL CL[facility] [address] | | | | | | 4TH [facility] [place], | | | | | | [place] [address] | | | | | | [phone] | | | +--------+ + + + [...] | | 2019 | | | DO [facility] | | | | | | [place] [address] | | | | | | [phone] | | | | | | | | | | | | Julia Fisher, | | | | | | PT | | +--------+ + + + + | 05/20/ | Appointment | Rehabilitation | Erika Ernst, | | | 2019 | | | DO [address] | | | | | | [place] [address] | | | | | | [phone] | | | | | | | | | | | | Genesis Ayon OT | | +--------+ + + + + | 02/25/ | Office | Primary Care | Erika Ernst, | | | 2019 | Visit | | DO [address] [place] | | | | | | [place] [address] | | | | | | [phone] | | | | | | | [...] | | | | | [place] [address] | | | | | | [phone] | | | | | | | | +--------+ + + + + | 02/27/ | Appointment | Radiology | Dhara, | | | 2019 | | | [address] | | | | | | 4TH [facility] [place], | | | | | | [place] [address] | | | | | | [phone] | | | | | | | [...] | | | | | [place] [address] | | | | | | [phone] | | | | | | | [...] [place] | | | | | | [address] | | | | | | [phone] | | | | | | | [...] | | | | | [place] [address] | | | | | | [phone] | | | | | | | | | | | | Azul Yeboah, | | | | | | MD [address] | | | | | | [place] | | | | | | [place] [address] | | | | | | [phone] | | | | | | | [...] | | | | | | [place] [address] | | | | | | [phone] | | | | | | | | +--------+ + + + + documented as of this encounter Visit Diagnoses Not on filedocumented in this encounter"
--- OUTSIDE RECORDS SUMMARY | ~2020-02-18 | XMS | Encounter Summary ---
Demographics + + + | Address | [address] | | | [place] [address] | + + + | Home Phone [...] Team Providers + +------+ + | Care Television News Anchor Name | Role | Phone | + [...] Description | +--------+--------+ + + + | 03/19/ | Refill | [place] [facility] | Erika Ernst, | Medication Refill | | 2017 | | [facility] | DO [address] | | | | | MEDICAL CLINIC [address] | [place] [address] | | | | | [address] [place], | [phone] | | | | | [place] [address] | | | | | | [phone] | | | +--------+--------+ + + + [...] | | | | | [place] [address] | | | | | | [phone] | | | | | | | | | | | | Julia Fisher, | | | | | | PT | | +--------+ + + + + | 02/18/ | Appointment | Rehabilitation | Erika Ernst, | | | 2019 | | | DO [address] [place] | | | | | | [place] [address] | | | | | | [phone] | | | | | | | | | | | | Genesis Ayon OT | | +--------+ + + + + | 02/25/ | Office | Primary Care | Erika Ernst, | | | 2019 | Visit | | DO [address] [place] | | | | | | [place] [address] | | | | | | [phone] | | | | | | | [...] | | | | | [place] [address] | | | | | | [phone] | | | | | | | | +--------+ + + + + | 02/27/ | Appointment | Radiology | Dhara, | | | 2019 | | | [address] | | | | | | 4TH [facility], | | | | | | [place] [address] | | | | | | [phone] | | | | | | | [...] | | | | | [place] [address] | | | | | | [phone] | | | | | | | [...] [place] | | | | | | [address] | | | | | | [phone] | | | | | | | [...] | | | | | [place] [address] | | | | | | [phone] | | | | | | | | | | | | Azul Yeboah, | | | | | | MD [address] | | | | | | [place] | | | | | | [place] [address] | | | | | | [phone] | | | | | | | [...] | | | | | | [place] [address] | | | | | | [phone] | | | | | | | | +--------+ + + + + documented as of this encounter Visit Diagnoses + + | Diagnosis | + + | Asthma, unspecified asthma severity, unspecified whether complicated, unspecified | | whether persistent - Primary | + + documented in this encounter"
--- OUTSIDE RECORDS SUMMARY | ~2020-02-18 | XMS | Encounter Summary ---
Demographics + + + | Address | [address] | | | [place] [address] | + + + | Home Phone [...] Providers + +------+ + | Care Nurse Anesthetist Name | Role | Phone | + [...] Description | +--------+---------+ + + + | 07/30/ | Office | [place] [facility] | Erika Ernst, | Essential | | 2018 | Visit | [facility] | DO [address] | hypertension | | | | MEDICAL CLINIC [address] | [place] [address] | (Primary Dx); Asthma | | | | [address] [place], | [phone] | due to | | | | [place] [address] | | environmental | | | | [phone] | | allergies; Asthma, | | | | | | unspecified asthma | | | | | | severity, | | | | | | unspecified whether | | | | | | complicated, | | | | | | unspecified whether | | | | | | persistent; Right | | | | | | wrist pain | +--------+---------+ + + + Social [...] + + + | Blood Pressure | 170/100 | 07/30/2018 3:01 PM | | | | | PDT | | + + + + + | Pulse | 75 | 07/30/2018 3:01 PM | | | | | PDT | | + + + + + | Temperature | - | - | | + + + + + | Respiratory Rate | 16 | 07/30/2018 3:01 PM | | | | | PDT | | + + + + + | Oxygen Saturation | 100% | 07/30/2018 3:01 PM | | | | | PDT | | + + + + + | Inhaled Oxygen | - | - | | | Concentration | | | | + + + + + | Weight | 154.2 kg (340 lb) | 07/30/2018 3:01 PM | | | | | PDT | | + + + + + | Height | 177.8 cm (5' 10") | 07/30/2018 3:01 PM | | | | | PDT | | + + + + + | Body Mass Index | 48.78 | 07/30/2018 3:01 PM | | | | | PDT | | + + + + + documented in this encounter Progress Notes Erika Ernst DO - 07/30/2018 3:00 PM PDTFormatting of this note might be different fro m the original. Subjective: Patient ID: Andrea Suh is a 28 y.o. female. Here to FU from her right wrist surgery that was a work comp issue but she will make appoin tment Monday for that. Instead she has increased pain and HTN today. BP is very high syst olic and diastolic and she states it was after surgery as well. She has not been taking the norvasc that was ordered. States she thought her BP was better so she could try off it. We w ill restart this today and with increased dose. No chest pain or SOB but states at noc feel s more wheezy and has not been using her inhaler more than 2 X a day and uses it at Supper t herb only. Encouraged her to use it Q 4 hr at definitely at bedtime. She had oxycodone for pa in per the surgeon for her wrist but states got hives from it. Would like short term ultram and states has taken that pain med before with no allergy. Review of Systems Constitutional: Negative. HENT: Negative. Eyes: Negative. Respiratory: As above Cardiovascular: Negative. Negative for chest pain and leg swelling. Gastrointestinal: Negative. Musculoskeletal: Wrist pain as above Skin: Negative. Neurological: Negative. Psychiatric/Behavioral: Negative. Social History Social [...] on file Outpatient Encounter Prescriptions as of 07/30/2018 Medication Sig Dispense Refill amLODIPine (NORVASC) 10 MG tablet Take 1 tablet by mouth Daily. 30 tablet 11 [DISCONTINUED] amLODIPine (NORVASC) 5 mg tablet Take 1 tablet by mouth Daily. 30 tablet 11 beclomethasone (QVAR) 80 mcg/puff inhaler Inhale 1 puff into the lungs 2 times daily. 1 Inhaler 11 [DISCONTINUED] busPIRone (BUSPAR) 10 MG tablet take 0.5 tablet by mouth every morning a nd 2.5 tablets at bedtime 0 busPIRone (BUSPAR) 5 mg tablet Take one 5mg tab in the AM and two 5mg tabs to equal 10 mg in the PM 90 tablet 5 [DISCONTINUED] ferrous sulfate 325 mg tablet Take by mouth. [DISCONTINUED] fexofenadine (JOSÉ ANTONIO ALLERGY) 180 mg tablet Take by mouth. montelukast (SINGULAIR) 10 mg tablet Take by mouth. [DISCONTINUED] montelukast (SINGULAIR) 10 mg tablet Take 10 mg by mouth. naproxen (NAPROSYN) 500 mg tablet Take 500 mg by mouth 2 times daily (with breakfast & dinner). [DISCONTINUED] NAPROXEN DR 500 MG EC tablet take 1 tablet by mouth twice a day if neede d for pain 0 ondansetron (ZOFRAN) 4 mg tablet take 1 tablet by mouth three times a day if needed for nausea for UP TO 7 DAYS 0 promethazine (PHENERGAN) 25 mg tablet Take 1 tablet by mouth every 4 hours as needed. 2 0 tablet 0 QVAR REDIHALER 40 MCG/ACT inhaler inhale 1 puff by mouth twice a day 0 traMADol (ULTRAM) 50 mg tablet Take 50 mg by mouth. traMADol (ULTRAM) 50 mg tablet [...] facility-administered encounter medications on file as of 07/30/2018. Allergies Allergen Reactions Escitalopram Palpitations Latex Rash Hydrocodone Hives Oxycodone Uncoded Nonscreenable Allergen Other (See Comments) Other reaction(s): Proclivity to C-diff with certain antibiotics Adhesive & Tape Rash Objective: BP (!) 170/100 | Pulse 75 | Resp 16 | Ht 1.778 m (5' 10") | Wt (!) 154.2 kg (340 lb) | LMP 07/27/2018 (LMP Unknown) | SpO2 100% | ? No | BMI 48.78 kg/m Physical Exam Constitutional: She is oriented to person, place, and time. She appears well-developed and well-nourished. No distress. HENT: Head: Normocephalic and atraumatic. Right Ear: External ear normal. Left Ear: External ear normal. Nose: Nose normal. Mouth/Throat: Oropharynx is clear and moist. No oropharyngeal exudate. TM's clear Eyes: Pupils are equal, round, [...] sounds normal. No respiratory distress. Musculoskeletal: Right wrist drsg intact and dry, and + finger movement. Neurological: She is alert and oriented to person, place, and time. No cranial nerve defici t. Coordination normal. Skin: Skin is warm and dry. Psychiatric: She has a normal mood and affect. Her behavior is normal. Judgment and thought content normal. Assessment: 1. Essential hypertension 2. Asthma due to environmental allergies 3. Asthma, unspecified asthma severity, unspecified whether complicated, unspecified whethe r persistent 4. Right wrist pain Plan: She will start back on Norvasc 10 mg daily today. We will get a recheck on BP in one week. She will use her inhaler Q 4 hr prn and definitely use it at bedtime. Continue Qvar and sing ular as well. Ultram 50 mg Q 4 hr prn pain for 5 days and she will FU on Monday for the w rist issue. documented in this en counter Plan of Treatment +--------+ + + + + | Date | Type | Specialty | Care Team | Description | +--------+ + + + + | 02/18/ | Appointment | Rehabilitation | Erika Ernst, | | | 2019 | | | DO [address] | | | | | | [place], [place] [address] | | | | | | [phone] | | | | | | | | | | | | Julia Fisher, | | | | | | PT | | +--------+ + + + + | 02/18/ | Appointment | Rehabilitation | Erika Ernst, | | | 2019 | | | DO [address] | | | | | | [place] [address] | | | | | | [phone] | | | | | | | | | | | | Ge[facility] Ayon OT | | +--------+ + + + + | 02/25/ | Office | Primary Care | Erika Ernst, | | | 2019 | Visit | | DO [address] | | | | | | [place] [address] | | | | | | [phone] | | | | | | | [...] | | | | | [place] [address] | | | | | | [phone] | | | | | | | | +--------+ + + + + | 02/27/ | Appointment | Radiology | Dhara, | | | 2019 | | | [address] | | | | | | 4TH [facility], | | | | | | [place] [address] | | | | | | [phone] | | | | | | | [...] | | | | | [place] [address] | | | | | | [phone] | | | | | | | [...] [place] | | | | | | [address] | | | | | | [phone] | | | | | | | [...] | | | | | [place] [address] | | | | | | [phone] | | | | | | | | | | | | Azul Yeboah, | | | | | | MD [address] | | | | | | [place] | | | | | | [place] [address] | | | | | | [phone] | | | | | | | [...] | | | | | | [place] [address] | | | | | | [phone] | | | | | | | | +--------+ + + + + documented as of this encounter Visit Diagnoses + + | Diagnosis | + + | Essential hypertension - Primary Unspecified essential hypertension | + + | Asthma due to environmental allergies | + + | Asthma, unspecified asthma severity, unspecified whether complicated, unspecified | | whether persistent | + + | Right wrist pain Pain in joint, forearm | + + documented in this encounter
--- OUTSIDE RECORDS SUMMARY | ~2020-02-18 | XMS | Encounter Summary ---
Demographics + + + | Address | [address] | | | [place] [address] | + + + | Home Phone [...] Team Providers + +------+ + | Care Pool Cleaner Name | Role | Phone | + +------+ + PCP | Unavailable | + +------+ + Encounter Details +--------+ + + + + | Date | Type | Department | Care Team | Description | +--------+ + + + + | 04/21/ | [facility] | [facility] | Travis Malone FNP | | | 2014 | Encounter | [facility] | [address] | | | | | MEDICAL CLIN[facility] [address] | [place] | | | | | [facility], | [address] | | | | | [place] [address] | [phone] | | | | | [phone] | | | +--------+ + + + [...] | | | | | [place] [address] | | | | | | [phone] | | | | | | | | | | | | Julia Fisher, | | | | | | PT | | +--------+ + + + + | 02/18/ | Appointment | Rehabilitation | Erika Ernst, | | | 2019 | | | DO [address] | | | | | | [place] [address] | | | | | | [phone] | | | | | | | | | | | | Genesis Ayon, OT | | +--------+ + + + + | 02/25/ | Office | Primary Care | Erika Ernst, | | | 2019 | Visit | | DO [address] | | | | | | [place] [address] | | | | | | [phone] | | | | | | | [...] | | | | | [place] [address] | | | | | | [phone] | | | | | | | | +--------+ + + + + | 02/27/ | Appointment | Radiology | Dhara, | | | 2019 | | | [address] | | | | | | 4TH [facility], | | | | | | [place] [address] | | | | | | [phone] | | | | | | | | +--------+ + + + + | 03/04/ | Appointment | Rehabilitation | Genesis Ayon OT | | | 2019 | | | | | +--------+ + + + + | 03/09/ | Office | Orthopedic Surgery | Jeffrey Gandhi, | | | 2019 | Visit | | [address] | | | | | | [place] [address] | | | | | | [phone] | | | | | | | [...] [place] | | | | | | [address] | | | | | | [phone] | | | | | | | [...] | | | | | [place] [address] | | | | | | [phone] | | | | | | | | | | | | Azul Yeboah, | | | | | | MD [address] | | | | | | [place] [place] | | | | | | [place] [address] | | | | | | [phone] | | | | | | | [...] | | | | | | [place] [address] | | | | | | [phone] | | | | | | | | +--------+ + + + + documented as of this encounter Visit Diagnoses Not on filedocumented in this encounter"
--- OUTSIDE RECORDS SUMMARY | ~2020-02-18 | XMS | Encounter Summary ---
Demographics + + + | Address | [address] | | | [place] [address] | + + + | Home Phone [...] Team Providers + +------+ + | Care Steward/Stewardess Night Name | Role | Phone | + [...] 12/15/ | Telephone | [facility] | Klever, Erika A, | Other | | 2020 | | [facility] | DO [address] | | | | | [facility] | [place] [address] | | | | | [address] [place], | [phone] | | | | | [place] [address] | | | | | | [phone] | | | +--------+ + + + [...] | | | | | [place] [address] | | | | | | [phone] | | | | | | | | | | | | Julia Fisher, | | | | | | PT | | +--------+ + + + + | 02/18/ | Appointment | Rehabilitation | Erika Ernst, | | | 2019 | | | DO [address] | | | | | | [place] [address] | | | | | | [phone] | | | | | | | | | | | | Genesis Ayon OT | | +--------+ + + + + | 02/25/ | Office | Primary Care | Erika Ernst, | | | 2019 | Visit | | DO [address] | | | | | | [place] [address] | | | | | | [phone] | | | | | | | [...] | | | | | [place] [address] | | | | | | [phone] | | | | | | | | +--------+ + + + + | 02/27/ | Appointment | Radiology | Dhara, | | | 2019 | | | [address] | | | | | | [address] [facility], | | | | | | [place] [address] | | | | | | [phone] | | | | | | | [...] MOORE | | | | | | [place] [address] | | | | | | [phone] | | | | | | | [...] [place] | | | | | | [address] | | | | | | [phone] | | | | | | | [...] | | | | | [place] [address] | | | | | | [phone] | | | | | | | | | | | | Azul Yeboah, | | | | | | MD [address] | | | | | | [place] | | | | | | [place] [address] | | | | | | [phone] | | | | | | | [...] | | | | | | [place] [address] | | | | | | [phone] | | | | | | | | +--------+ + + + + documented as of this encounter Visit Diagnoses Not on filedocumented in this encounter"
--- OUTSIDE RECORDS SUMMARY | ~2020-02-18 | XMS | Encounter Summary ---
Demographics + + + | Address | [address] | | | [place] [address] | + + + | Home Phone [...] Team Providers + +------+ + | Care Exhibit Specialist Name | Role | Phone | [...] | [address] [place] | [facility] [facility], | | | | | [place], [place] | [place] [address] | | | | | [address] | [phone] | | | | | [phone] | | | +--------+ + + + [...] | | 2019 | | | DO [address] [place] [address] | | | | | | [place] [address] | | | | | | [phone] | | | | | | | | | | | | Julia Fisher, | | | | | | PT | | +--------+ + + + + | 02/18/ | Appointment | Rehabilitation | Erika Ernst, | | | 2019 | | | DO [address] | | | | | | [place] [address] | | | | | | [phone] | | | | | | | | | | | | Genesis Ayon, SUSAN | | +--------+ + + + + | 02/25/ | Office | Primary Care | Erika Ernst, | | | 2019 | Visit | | DO [address] [place] | | | | | | [place] [address] | | | | | | [phone] | | | | | | | [...] | | | | | [place] [address] | | | | | | [phone] | | | | | | | | +--------+ + + + + | 02/27/ | Appointment | Radiology | Dhara, | | | 2019 | | | [address] | | | | | | [address] [place], | | | | | | [place] [address] | | | | | | [phone] | | | | | | | [...] | | | | | [place] [address] | | | | | | [phone] | | | | | | | [...] [place] | | | | | | [address] | | | | | | [phone] | | | | | | | [...] | | | | | [place] [address] | | | | | | [phone] | | | | | | | | | | | | Azul Yeboah, | | | | | | MD [address] | | | | | | [place] | | | | | | [place] [address] | | | | | | [phone] | | | | | | | [...] | | | | | | [place] [address] | | | | | | [phone] | | | | | | | | +--------+ + + + + documented as of this encounter Visit Diagnoses Not on filedocumented in this encounter"
--- OUTSIDE RECORDS SUMMARY | ~2020-02-18 | XMS | Encounter Summary ---
Demographics + + + | Address | [address] | | | [place] [address] | + + + | Home Phone [...] Team Providers + +------+ + | Care Automotive Window Tinter Name | Role | Phone | + +------+ + | Erika Ernst DO | PCP | | + +------+ + Reason for Visit + + + | Reason | Comments | + + + | Follow-up | Brace fitting | + + + Encounter Details +--------+---------+ + + + | Date | Type | Department | Care Team | Description | +--------+---------+ + + + | 12/26/ | Office | [facility] | Emily Mittal DPM | Posterior tibial | | 2019 | Visit | [facility] | [address] [place] | tendon dysfunction | | | | [address] [place] | F [place], [place] | (PTTD) of left lower | | | | [place], [place] | [address] | extremity (Primary | | | | [address] | | Dx); Hindfoot | | | | [phone] | | pronation of both | | | | | | feet; Sprain of | | | | | | deltoid ligament of | | | | | | left ankle, sequela | +--------+---------+ + + + Social History [...] + + + | Blood Pressure | 133/87 | 12/26/2018 10:12 AM | | | | | PDT | | + + + + + | Pulse | 72 | 12/26/2018 10:12 AM | | | | | PDT | | + + + + + | Temperature | - | - | | + + + + + | Respiratory Rate | - | - | | + + + + + | Oxygen Saturation | 100% | 12/26/2018 10:12 AM | | | | | PDT | | + + + + + | Inhaled Oxygen | - | - | | | Concentration | | | | + + + + + | Weight | 167.8 kg (370 lb) | 12/26/2018 10:12 AM | | | | | PDT | | + + + + + | Height | 177.8 cm (5' 10") | 12/26/2018 10:12 AM | | | | | PDT | | + + + + + | Body Mass Index | 53.09 | 12/26/2018 10:12 AM | | | | | PDT | | + + + + + documented in this encounter Progress Emily Connolly DPM - 12/26/2018 10:00 AM PDT [facility] Note Patient Name: Andrea Suh | Age: 28 y.o. | : 1990 | Medical Record Number:[id number] | Author: Emily Mittal DPM | Date of Encounter: 12/06/2018 Chief complaint Chief Complaint Patient presents with Follow-up Brace fitting History of Present Illness Andrea Suh is a 28 y.o. female that presents to my office To be fitted for a hinge d ankle stabilizer. Patient also relates she has been transferred to a more stationary posi tion within her job. Patient is using Voltaren gel and does relate some improvement. Carolina ross's orthotics are sent to be delivered in the coming weeks. Medications Current Outpatient Prescriptions on File Prior [...] 15 mg tablet Take 15 mg BID 60 tablet 5 Cetirizine HCl (ZYRTEC PO) Take by mouth. Once a week Cholecalciferol (VITAMIN D3) 13419 units TABS Take 1 tablet by mouth [...] 30 tablet 11 mupirocin (BACTROBAN) 2% ointment apply to affected area 3 times per day for the next 1 0 days. 22 g 1 QVAR REDIHALER 80 MCG/ACT inhaler 0 No current facility-administered medications on file prior to visit. Allergies Escitalopram; Latex; Hydrocodone; Norethindrone; Oxycodone; Uncoded nonscreenable allergen; and Adhesive & tape Vitals BP 133/87 | Pulse 72 | Resp Temp | Wt (!) 167.8 kg (370 lb) | BMI Body mass index is 5 3.09 kg/m. ROS Patient denies any visit problem [...] patient include: No results found. Physical Exam Not assessed Assessment ICD-10-CM ICD-9-CM 1. Posterior tibial tendon dysfunction (PTTD) of left lower extremity M76.822 734 2. Hindfoot pronation of both feet M21.6X1 736.79 M21.6X2 3. Sprain of deltoid ligament of left ankle, sequela S93.422S 905.7 845.01 Treatment and Plan of Care An extra-large hinged ankle stabilizer was fitted to the left foot and ankle today and was noted to be free of defects and fit the patient well. The patient was educated on its use. The patient was observed walking. Continue Voltaren gel when necessary pain Orthotic dispense pending. Educated patient on the correct type of shoe gear to use with t he orthotics including a firm heel counter and flexible sole. Return to the office 4-6 weeks for f orthotic and brace evaluation or when necessary Active Problems, Medical and [...] to pollen Nasal obstruction Deviated nasal septum Acute pain of right knee Past Medical History: Diagnosis Date Allergic rhinitis Anemia Asthma Dysmenorrhea Hypertension Hypothyroid Iron deficiency Obesity ALVAREZ (obstructive sleep apnea) Periodontal disease, unspecified TMJ pain dysfunction syndrome Past Surgical History: Procedure Laterality Date EYE SURGERY RIGHT KIDNER PROCEDURE 01/20/2016 Surgeon: Fani Mahajan MD; Location: [facility] TENDON RELEASE TONSILLECTOMY WISDOM TOOTH EXTRACTION Family History Problem Relation Age of Onset Other (see comment) Mother gallbladder disease Hypertension Father Other (see comment) Father arrhymthmia Breast cancer Sister Cervical cancer Maternal Grandmother Heart attack Maternal Aunt [place] Social History Social History Marital status: Single [...] their vital signs recorded by my assistant corporate secretary today, a s found in this chart note. Electronically signed by: Emily Mittal DPM 12/06/2018 at 10:37 Note: Part of this report was transcribed using voice recognition software. Every effort wa s made to ensure accuracy. However, inadvertent computerized software quality manager errors may be pre sent. CC: Erika [...] | | | | | [place] [address] | | | | | | [phone] | | | | | | | [...] [address] | | | | | | [phone] | | | | | | | | | | | | Genesis Ayon OT | | +--------+ + + + + | 02/25/ | Office | Primary Care | Erika Ernst, | | | 2019 | Visit | | DO [address] [place] | | | | | | [place] [address] | | | | | | [phone] | | | | | | | [...] | | | | | [place] [address] | | | | | | [phone] | | | | | | | | +--------+ + + + + | 02/27/ | Appointment | Radiology | Dhara, | | | 2019 | | | [address] | | | | | [address] [place], | | | | | | [place] [address] | | | | | | [phone] | | | | | | | [...] | | | | | [place] [address] | | | | | | [phone] | | | | | | | [...] [place] | | | | | | [address] | | | | | | [phone] | | | | | | | [...] | | | | | [place] [address] | | | | | | [phone] | | | | | | | | | | | | Azul Yeboah, | | | | | | MD [address] | | | | | | [place] | | | | | | [place] [address] | | | | | | [phone] | | | | | | | [...] | | | | | | [place] [address] | | | | | | [phone] | | | | | | | | +--------+ + + + + documented as of this encounter Visit Diagnoses + + | Diagnosis | + + | Posterior tibial tendon dysfunction (PTTD) of left lower extremity - Primary | + + | Hindfoot pronation of both feet | + + | Sprain of deltoid ligament of left ankle, sequela | + + documented in this encounter
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
--- OUTSIDE RECORDS SUMMARY | ~2020-02-18 | XMS | Encounter Summary ---
Demographics + + + | Address | [address] | | | [place] [address] | + + + | Home Phone [...] Team Providers + +------+ + | Care Classroom Coordinator Name | Role | Phone | [...] | | | | encounter | [place] [address] | [place], [place] | | | | | | Phone: | [phone] Phone: | | | | | | [phone] | [phone] | | | | | | Fax: | Fax: | | | | | | [phone] | [phone] | + + + + + + [...] | [facility] [address] | [place] [address] | encounter (Primary | | | | [address] [place], | [phone] | Dx) | | | | [place] [address] | | | | | | [phone] | | | +--------+ + + + [...] | | 2019 | | | DO [address] [place] [address] | | | | | | [place] [address] | | | | | | [phone] | | | | | | | | | | | | Julia Fisher, | | | | | | PT | | +--------+ + + + + | 02/18/ | Appointment | Rehabilitation | Erika Ernst, | | | 2019 | | | DO [address] [place] | | | | | | [place] [address] | | | | | | [phone] | | | | | | | | | | | | Genesis Ayon OT | | +--------+ + + + + | 02/25/ | Office | Primary Care | Erika Ernst, | | | 2019 | Visit | | DO [address] [place] | | | | | | [place] [address] | | | | | | [phone] | | | | | | | [...] | | | | | [place] [address] | | | | | | [phone] | | | | | | | | +--------+ + + + + | 02/27/ | Appointment | Radiology | Dhara, | | | 2019 | | | [address] | | | | | [address] [place], | | | | | | [place] [address] | | | | | | [phone] | | | | | | | [...] | | | | | [place] [address] | | | | | | [phone] | | | | | | | [...] [place] | | | | | | [address] | | | | | | [phone] | | | | | | | [...] | | | | | [place] [address] | | | | | | [phone] | | | | | | | | | | | | Azul Yeboah, | | | | | | MD [address] | | | | | | [place] | | | | | | [place] [address] | | | | | | [phone] | | | | | | | [...] | | | | | | [place] [address] | | | | | | [phone] | | | | | | | [...]
--- OUTSIDE RECORDS SUMMARY | ~2020-02-18 | XMS | Encounter Summary ---
Demographics + + + | Address | [address] | | | [place] [address] | + + + | Home Phone [...] Team Providers + +------+ + | Care Slide Fastener Chain Assembler Name | Role | Phone | + +------+ + PCP | Unavailable | + +------+ + Encounter Details +--------+ + + + + | Date | Type | Department | Care Team | Description | +--------+ + + + + | 11/25/ | [facility] | Erika Ernst, | | | 2016 | Encounter | [facility] | DO [address] | | | | | [address] [place] | [place] [address] | | | | | [place], [place] | [phone] | | | | | [address] | | | | | | [phone] | | | +--------+ + + + [...] | | | | | [place] [address] | | | | | | [phone] | | | | | | | [...] [address] | | | | | | [phone] | | | | | | | | | | | | Genesis Ayon OT | | +--------+ + + + + | 02/25/ | Office | Primary Care | Erika Ernst, | | | 2019 | Visit | | DO [address] [place] | | | | | | [place] [address] | | | | | | [phone] | | | | | | | [...] | | | | | [place] [address] | | | | | | [phone] | | | | | | | | +--------+ + + + + | 02/27/ | Appointment | Radiology | Dhara, | | 2019 | | | [address] | | | | [address] [place], | | | | | | [place] [address] | | | | | | [phone] | | | | | | | | +--------+ + + + + | 03/04/ | Appointment | Rehabilitation | Genesis Ayon OT | | | 2019 | | | | | +--------+ + + + + | 03/09/ | Office | Orthopedic Surgery | Jeffrey Gandhi, | | | 2019 | Visit | | [address] [facility] | | | | | | [place] [address] | | | | | | [phone] | | | | | | | [...] [place] | | | | | | [address] | | | | | | [phone] | | | | | | | [...] | | | | | [place] [address] | | | | | | [phone] | | | | | | | | | | | | Azul Yeboah, | | | | | | MD [address] | | | | | | [place] | | | | | | [place] [address] | | | | | | [phone] | | | | | | | [...] | | | | | | [place] [address] | | | | | | [phone] | | | | | | | | +--------+ + + + + documented as of this encounter Procedures + +--------+ + + + | Procedure Name | Priori | Date/Time | Associated Diagnosis | Comments | | | ty | | | | + +--------+ + + + | CBC W/AUTO | Routin | 11/25/2016 | | Results for this | | DIFFERENTIAL | e | 7:42 AM | | procedure are in the | | | | PST | | results section. | + +--------+ + + + | TSH | Routin | 11/25/2016 | | Results for this | | | e | 7:42 AM | | procedure are in the | | | | PST | | results section. | + +--------+ + + + documented in this encounter Results CBC w/ Auto Differential (11/25/2016 7:42 AM PST) + +-------+ + + + | Component | Value | Ref Range | Performed | Pathologist | | | | | At | Signature | + +-------+ + + + | WBC | 7.5 | 4.3 - 10.4 | EXTERNAL | | | | | 1000/mm3 | LAB | | + +-------+ + + + | RBC | 4.36 | 4.12 - 5.30 | EXTERNAL | | | | | mil/mm3 | LAB | | + +-------+ + + + | HGB, | 11.6 | 12.4 - 15.7 | EXTERNAL | | | External | | g/dL | LAB | | + +-------+ + + + | HCT, | 36.4 | 37.7 - 47.0 % | EXTERNAL | | | External | | | LAB | | + +-------+ + + + | MCV | 84 | 82 - 97 fl | EXTERNAL | | | | | | LAB | | + +-------+ + + + | MCH | 26.6 | 27.1 - 32.3 pg | EXTERNAL | | | | | | LAB | | + +-------+ + + + | MCHC | 31.9 | 32.0 - 36.9 | EXTERNAL | | | | | g/dL | LAB | | + +-------+ + + + | RDW-CV | 14.2 | <=17.0 % | EXTERNAL | | | | | | LAB | | + +-------+ + + + | Platelet | 335 | 150 - 450 | EXTERNAL | | | Count | | 1000/mm3 | LAB | | | Plasma | | | | | + +-------+ + + + | MPV | 10.4 | 9.4 - 12.3 FL | EXTERNAL | | | | | | LAB | | + +-------+ + + + | % Segmented | 53.1 | 42.0 - 76.0 % | EXTERNAL | | | | | | LAB | | | Neutrophils | | | | | + +-------+ + + + | LYMPH % | 40 | 20.0 - 40.0 % | EXTERNAL | | | | | | LAB | | + +-------+ + + + | % Monocytes | 6.9 | <=12.0 % | EXTERNAL | | | | | | LAB | | + +-------+ + + + | Absolute | 4 | 2.50 - 8.50 | EXTERNAL | | | Neutrophils | | 1000/mm3 | LAB | | + +-------+ + + + | Absolute | 3 | 1.00 - 3.80 | EXTERNAL | [...] | | + +---------+ + + TSH (11/25/2016 7:42 AM PST) + +-------+ + + + | Component | Value | Ref Range | Performed | Pathologist | | | | | At | Signature | + +-------+ + + + | TSH | 2.97 | 0.36 - 3.74 | EXTERNAL | [...]
--- OUTSIDE RECORDS SUMMARY | ~2020-02-18 | XMS | Encounter Summary ---
Demographics + + + | Address | [address] | | | [place] [address] | + + + | Home Phone [...] Team Providers + +------+ + | Care Mill Feeder Name | Role | Phone | [...] CLIN[facility] [address] | [place] [address] | | | | | [address] [facility], | [phone] | | | | | [place] [address] | | | | | | [phone] | | | +--------+ + + + [...] | | | | | [place] [address] | | | | | | [phone] | | | | | | | | | | | | Julia Fisher, | | | | | | PT | | +--------+ + + + + | 02/18/ | Appointment | Rehabilitation | Erika Ernst, | | | 2019 | | | DO [address] | | | | | | [place] [address] | | | | | | [phone] | | | | | | | | | | | | [facility] OT | | +--------+ + + + + | 02/25/ | Office | Primary Care | Erika Ernst, | | | 2019 | Visit | | DO [address] | | | | | | [place] [address] | | | | | | [phone] | | | | | | | [...] | | | | | [place] [address] | | | | | | [phone] | | | | | | | | +--------+ + + + + | 02/27/ | Appointment | Radiology | Dhara, | | | 2019 | | | [address] | | | | | | 4TH [facility], | | | | | | [place] [address] | | | | | | [phone] | | | | | | | | +--------+ + + + + | 03/04/ | Appointment | Rehabilitation | Genesis Ayon OT | | | 2019 | | | | | +--------+ + + + + | 03/09/ | Office | Orthopedic Surgery | Jeffrey Gandhi, | | 2019 | Visit | | [address] | | | | | | [place] [address] | | | | | | [phone] | | | | | | | [...] [place] | | | | | | [address] | | | | | | [phone] | | | | | | | [...] | | | | | [place] [address] | | | | | | [phone] | | | | | | | | | | | | Azul Yeboah, | | | | | | MD [address] | | | | | | [place] | | | | | | [place] [address] | | | | | | [phone] | | | | | | | [...] | | | | | | [place] [address] | | | | | | [phone] | | | | | | | | +--------+ + + + + documented as of this encounter Visit Diagnoses Not on filedocumented in this encounter"
--- OUTSIDE RECORDS SUMMARY | ~2020-02-18 | XMS | Encounter Summary ---
Demographics + + + | Address | [address] | | | [place] [address] | + + + | Home Phone [...] Team Providers + +------+ + | Care Trimming Press Operator Name | Role | Phone | + +------+ + PCP | Unavailable | + +------+ + Encounter Details +--------+ + + + + | Date | Type | Department | Care Team | Description | +--------+ + + + + | 08/22/ | Hospital | [place] [facility] | Tyrese Kee | | | 2012 | Encounter | H[facility]PITAL EMERGENCY | MD [address] | | | | | CENTER [address] | [address] | | | | | DR [place], [place] | [place] [address] | | | | | [address] | [phone] | | | | | [phone] | | | +--------+ + + + [...] | | | | | [place] [address] | | | | | | [phone] | | | | | | | | | | | | Julia Fisher, | | | | | | PT | | +--------+ + + + + | 02/18/ | Appointment | Rehabilitation | Erika Ernst, | | | 2019 | | | DO [address] | | | | | | [place] [address] | | | | | | [phone] | | | | | | | | | | | | Genesis Ayon OT | | +--------+ + + + + | 02/25/ | Office | Primary Care | Erika Ernst, | | | 2019 | Visit | | DO [address] | | | | | | [place] [address] | | | | | | [phone] | | | | | | | [...] | | | | | [place] [address] | | | | | | [phone] | | | | | | | | +--------+ + + + + | 02/27/ | Appointment | Radiology | Dhara, | | | 2019 | | | [address] | | | | | | 4TH [facility], | | | | | | [place] [address] | | | | | | [phone] | | | | | | | [...] [place] | | | | | | [place] [address] | | | | | | [phone] | | | | | | | [...] [place] | | | | | | [address] | | | | | | [phone] | | | | | | | [...] | | | | | [place] [address] | | | | | | [phone] | | | | | | | | | | | | Azul Yeboah, | | | | | | MD [address] | | | | | | [place] | | | | | | [place] [address] | | | | | | [phone] | | | | | | | [...] | | | | | | [place] [address] | | | | | | [phone] | | | | | | | | +--------+ + + + + documented as of this encounter Visit Diagnoses Not on filedocumented in this encounter"
--- OUTSIDE RECORDS SUMMARY | ~2020-02-18 | XMS | Encounter Summary ---
Demographics + + + | Address | [address] | | | [place] [address] | + + + | Home Phone [...] Team Providers + +------+ + | Care Fiber Optics Supervisor Name | Role | Phone | [...] | [facility] | [place] [address] | | | | | [address] [place], | [phone] | | | | | [place] [address] | | | | | | [phone] | | | +--------+ + + + [...] | | | | | [place] [address] | | | | | | [phone] | | | | | | | | | | | | Julia Fisher, | | | | | | PT | | +--------+ + + + + | 02/18/ | Appointment | Rehabilitation | Erika Ernst, | | | 2019 | | | DO [address] | | | | | | [place] [address] | | | | | | [phone] | | | | | | | | | | | | Genesis Ayon OT | | +--------+ + + + + | 02/25/ | Office | Primary Care | Erika Ernst, | | | 2019 | Visit | | DO [address] | | | | | | [place] [address] | | | | | | [phone] | | | | | | | [...] | | | | | [place] [address] | | | | | | [phone] | | | | | | | | +--------+ + + + + | 02/27/ | Appointment | Radiology | Dhara, | | | 2019 | | | [address] | | | | | | 4TH [facility], | | | | | | [place] [address] | | | | | | [phone] | | | | | | | [...] [place] | | | | | | [place] [address] | | | | | | [phone] | | | | | | | [...] [place] | | | | | | [address] | | | | | | [phone] | | | | | | | [...] [address] | | | | | | [phone] | | | | | | | | | | | | Azul Yeboah, | | | | | | MD [address] | | | | | | [place] | | | | | | [place] [address] | | | | | | [phone] | | | | | | | [...] | | | | | | [place] [address] | | | | | | [phone] | | | | | | | | +--------+ + + + + documented as of this encounter Visit Diagnoses Not on filedocumented in this encounter"
--- OUTSIDE RECORDS SUMMARY | ~2020-02-18 | XMS | Encounter Summary ---
Demographics + + + | Address | [address] | | | [place] [address] | + + + | Home Phone [...] Team Providers + +------+ + | Care Minilab Operator Name | Role | Phone | + +------+ + PCP | Unavailable | + +------+ + Encounter Details +--------+ + + + + | Date | Type | Department | Care Team | Description | +--------+ + + + + | 09/16/ | [facility] | [facility] | Erika Ernst, | | | 2016 | Encounter | [facility] | DO [address] | | | | | MEDICAL [facility] [address] | [facility] [place] [address] | | | | | [address] [place], | [phone] | | | | | [place] [address] | | | | | | [phone] | | | +--------+ + + + [...] 2019 | | | DO [facility] | | | | | | [place], [place] [address] | | | | | | [phone] | | | | | | | | | | | | Julia Fisher, | | | | | | PT | | +--------+ + + + + | 02/18/ | Appointment | Rehabilitation | Erika Ernst, | | | 2019 | | | DO [address] | | | | | | [place] [address] | | | | | | [phone] | | | | | | | | | | | | Genesis Ayon, SUSAN | | +--------+ + + + + | 02/25/ | Office | Primary Care | Erika Ernst, | | | 2019 | Visit | | DO [address] | | | | | | [place] [address] | | | | | | [phone] | | | | | | | [...] | | | | | [place] [address] | | | | | | [phone] | | | | | | | | +--------+ + + + + | 02/27/ | Appointment | Radiology | Dhara, | | 2019 | | | [address] | | | | | | 4TH [facility] [place], | | | | | | [place] [address] | | | | | | [phone] | | | | | | | [...] | | | | | [place] [address] | | | | | | [phone] | | | | | | | [...] [place] | | | | | | [address] | | | | | | [phone] | | | | | | | [...] | | | | | [place] [address] | | | | | | [phone] | | | | | | | | | | | | Azul Yeboah, | | | | | | MD [address] | | | | | | [place] | | | | | | [place] [address] | | | | | | [phone] | | | | | | | [...] | | | | | | [place] [address] | | | | | | [phone] | | | | | | | | +--------+ + + + + documented as of this encounter Visit Diagnoses Not on filedocumented in this encounter"
--- OUTSIDE RECORDS SUMMARY | ~2020-02-18 | XMS | Encounter Summary ---
Demographics + + + | Address | [address] | | | [place] [address] | + + + | Home Phone [...] Team Providers + +------+ + | Care Vice President Of Talent Management Name | Role | Phone | + +------+ + PCP | Unavailable | + +------+ + Encounter Details +--------+ + + + + | Date | Type | Department | Care Team | Description | +--------+ + + + + | 02/07/ | [facility] | Spenser Roberts NP | | | 2014 | Encounter | [facility] | [address], | | | | | MEDICAL CLIN[facility] [address] | [place] [address] | | | | | 4TH [facility], | [phone] | | | | | [place] [address] | | | | | | [phone] | | | +--------+ + + + [...] | | | | | [place] [address] | | | | | | [phone] | | | | | | | | | | | | Julia Fisher, | | | | | | PT | | +--------+ + + + + | 02/18/ | Appointment | Rehabilitation | Erika Ernst, | | | 2019 | | | DO [address] | | | | | | [place] [address] | | | | | | [phone] | | | | | | | | | | | | [facility] Ayon OT | | +--------+ + + + + | 02/25/ | Office | Primary Care | Erika Ernst, | | | 2019 | Visit | | DO [address] | | | | | | [place] [address] | | | | | | [phone] | | | | | | | [...] | | | | | [place] [address] | | | | | | [phone] | | | | | | | | +--------+ + + + + | 02/27/ | Appointment | Radiology | Dhara, | | | 2019 | | | [address] | | | | | | 4TH [facility], | | | | | | [place] [address] | | | | | | [phone] | | | | | | | | +--------+ + + + + | 03/04/ | Appointment | Rehabilitation | Genesis Ayon OT | | | 2019 | | | | | +--------+ + + + + | 03/09/ | Office | Orthopedic Surgery | Jeffrey Gandhi, | | 2019 | Visit | | [address] | | | | | | [place] [address] | | | | | | [phone] | | | | | | | [...] [place] | | | | | | [address] | | | | | | [phone] | | | | | | | [...] | | | | | [place] [address] | | | | | | [phone] | | | | | | | | | | | | Azul Yeboah, | | | | | | MD [address] | | | | | | [place] | | | | | | [place] [address] | | | | | | [phone] | | | | | | | [...] | | | | | | [place] [address] | | | | | | [phone] | | | | | | | | +--------+ + + + + documented as of this encounter Visit Diagnoses Not on filedocumented in this encounter"
--- OUTSIDE RECORDS SUMMARY | ~2020-02-18 | XMS | Encounter Summary ---
Demographics + + + | Address | [address] | | | [place] [address] | + + + | Home Phone [...] Providers + +------+ + | Care Power Press Tender Name | Role | Phone | [...] | +--------+ + + + + | 05/29/ | Telephone | [facility] [facility] | Emily Mittal, KATARINA | Other | | 2019 | | HOSPITAL [facility]OD[facility] | [address] [place] | | | | | [address] [place] | [place], [place] | | | | | [place], [place] | [address] | | | | | [address] | | | | | | [phone] | | | +--------+ + + + [...] | | | | | [place] [address] | | | | | | [phone] | | | | | | | | | | | | Julia Fisher, | | | | | | PT | | +--------+ + + + + | 02/18/ | Appointment | Rehabilitation | Erika Ernst, | | | 2019 | | | DO [address] | | | | | | [place] [address] | | | | | | [phone] | | | | | | | | | | | | Genesis Ayon OT | | +--------+ + + + + | 02/25/ | Office | Primary Care | Erika Ernst, | | | 2019 | Visit | | DO [address] | | | | | | [place] [address] | | | | | | [phone] | | | | | | | [...] | | | | | | [place] [address] | | | | | | [phone] | | | | | | | | +--------+ + + + + | 02/27/ | Appointment | Radiology | Dhara, | | | 2019 | | | [address] | | | | | | 4TH [facility], | | | | | | [place] [address] | | | | | | [phone] | | | | | | | | +--------+ + + + + | 03/04/ | Appointment | Rehabilitation | Genesis Ayon OT | | | 2019 | | | | | +--------+ + + + + | 03/09/ | Office | Orthopedic Surgery | Jeffrey Gandhi, | | | 2019 | Visit | | [address] | | | | | | [place] [address] | | | | | | [phone] | | | | | | | [...] [place] | | | | | | [address] | | | | | | [phone] | | | | | | | [...] | | | | | [place] [address] | | | | | | [phone] | | | | | | | | | | | | Azul Yeboah, | | | | | | MD [address] | | | | | | [place] | | | | | | [place] [address] | | | | | | [phone] | | | | | | | [...] | | | | | | [place] [address] | | | | | | [phone] | | | | | | | | +--------+ + + + + documented as of this encounter Visit Diagnoses Not on filedocumented in this encounter"
--- OUTSIDE RECORDS SUMMARY | ~2020-02-18 | XMS | Encounter Summary ---
Demographics + + + | Address | [address] | | | [place] [address] | + + + | Home Phone [...] | [facility] [address] | [place] [address] | | | | | [address] [place], | [phone] | | | | | [place] [address] | | | | | | [phone] | | | +--------+ + + + [...] | | | | | [place] [address] | | | | | | [phone] | | | | | | | | | | | | Julia Fisher, | | | | | | PT | | +--------+ + + + + | 02/18/ | Appointment | Rehabilitation | Erika Ernst, | | | 2019 | | | DO [address] | | | | | | [place] [address] | | | | | | [phone] | | | | | | | | | | | | Genesis Ayon OT | | +--------+ + + + + | 02/25/ | Office | Primary Care | Erika Ernst, | | | 2019 | Visit | | DO [address] | | | | | | [place] [address] | | | | | | [phone] | | | | | | | [...] | | | | | [place] [address] | | | | | | [phone] | | | | | | | | +--------+ + + + + | 02/27/ | Appointment | Radiology | Dhara, | | | 2019 | | | [address] | | | | | | 4TH [facility], | | | | | | [place] [address] | | | | | | [phone] | | | | | | | [...] [place] | | | | | | [place] [address] | | | | | | [phone] | | | | | | | [...] [place] | | | | | | [address] | | | | | | [phone] | | | | | | | [...] | | | | | [place] [address] | | | | | | [phone] | | | | | | | | | | | | Azul Yeboah, | | | | | | MD [address] | | | | | | [place] | | | | | | [place] [address] | | | | | | [phone] | | | | | | | [...] | | | | | | [place] [address] | | | | | | [phone] | | | | | | | | +--------+ + + + + documented as of this encounter Visit Diagnoses Not on filedocumented in this encounter"
--- OUTSIDE RECORDS SUMMARY | ~2020-02-18 | XMS | Encounter Summary ---
Demographics + + + | Address | [address] | | | [place] [address] | + + + | Home Phone [...] Team Providers + +------+ + | Care Parcel Post Carrier Name | Role | Phone | + [...] | | | right ankle, | [place] [address] | [facility] | | | | | subsequent | Phone: | CL[address]IC [address] | | | | | encounter | [phone] | [address] | | | | | | Fax: | [address] | | | | | | [phone] | [place], [place] | | | | | | | [address] | | | | | | | Phone: | | | | | | | [phone] | | | | | | | Fax: | | | | | | | [phone] | + + + + + + [...] | MEDICAL [facility] [address] | [place] [address] | ankle, subsequent | | | | [address] [place], | [phone] | encounter (Primary | | | | [place] [address] | | Dx) | | | | [phone] | | | +--------+ + + + [...] | | | | | [place] [address] | | | | | | [phone] | | | | | | | | | | | | Julia Fisher, | | | | | | PT | | +--------+ + + + + | 02/18/ | Appointment | Rehabilitation | Erika Ernst, | | | 2019 | | | DO [address] | | | | | | [place] [address] | | | | | | [phone] | | | | | | | | | | | | Genesis Ayon OT | | +--------+ + + + + | 02/25/ | Office | Primary Care | Erika Ernst, | | | 2019 | Visit | | DO [address] | | | | | | [place] [address] | | | | | | [phone] | | | | | | | [...] | | | | | [place] [address] | | | | | | [phone] | | | | | | | | +--------+ + + + + | 02/27/ | Appointment | Radiology | Dhara, | | | 2019 | | | [address] | | | | | | 4TH [facility], | | | | | | [place] [address] | | | | | | [phone] | | | | | | | [...] | | | | | [place] [address] | | | | | | [phone] | | | | | | | [...] [place] | | | | | | [address] | | | | | | [phone] | | | | | | | [...] | | | | | [place] [address] | | | | | | [phone] | | | | | | | | | | | | Azul Yeboah, | | | | | | MD [address] | | | | | | [place] | | | | | | [place] [address] | | | | | | [phone] | | | | | | | [...] | | | | | | [place] [address] | | | | | | [phone] | | | | | | | [...]
--- OUTSIDE RECORDS SUMMARY | ~2020-02-18 | XMS | Encounter Summary ---
Demographics + + + | Address | [address] | | | [place] [address] | + + + | Home Phone [...] Team Providers + +------+ + | Care Burr Picker Name | Role | Phone | + [...] | | | | | | [place] [address] | [address] | | | | | | Phone: | [place] | | | | | | [phone] | [place] | | | | | | Fax: | [address] Phone: | | | | | | [phone] | [phone] | | | | | | | Fax: | | | | | | | [phone] | +--------+ + + + + + [...] menstrual | | 2017 | Visit | [facility] | DO [address] | periods (Primary | | | | MEDICAL CLINIC [address] | [place] [address] | Dx); Dysmenorrhea | | | | [address] [place], | [phone] | | | | | [place] [address] | | | | | | [phone] | | | +--------+---------+ + + + [...] complaints of painful menstrual periods. Had seen [facility] in [place] in January for this and did not return for FU. First menses was at age 11. Periods are regular every 29 day s. No mid cycle pain. Flow is heavy first day then tapers. Pain starts first day and continu es whole period with cramping and even a day or two after period done. She would like referr al back to the [facility] in [place]. Period just ended, no pain today. Review [...] 2. Dysmenorrhea Plan: Referral to [facility] Dr Henna Green . She will take [...] | | | | | [place] [address] | | | | | | [phone] | | | | | | | | | | | | Julia Fisher, | | | | | | PT | | +--------+ + + + + | 02/18/ | Appointment | Rehabilitation | Erika Ernst, | | | 2019 | | | DO [address] [place] | | | | | | [place] [address] | | | | | | [phone] | | | | | | | | | | | | Genesis [facility]yon OT | | +--------+ + + + + | 02/25/ | Office | Primary Care | Erika Ernst, | | | 2019 | Visit | | DO [address] [place] | | | | | | [place] [address] | | | | | | [phone] | | | | | | | [...] | | Visit | | [address] | | | | | | [place] [address] | | | | | | [phone] | | | | | | | | +--------+ + + + + | 02/27/ | Appointment | Radiology | Dhara, | | | 2019 | | | [address] | | | | | | [address]TH [place], | | | | | | [place] [address] | | | | | | [phone] | | | | | | | [...] [place] | | | | | | [place] [address] | | | | | | [phone] | | | | | | | [...] [place] | | | | | | [address] | | | | | | [phone] | | | | | | | [...] | | | | | [place] [address] | | | | | | [phone] | | | | | | | | | | | | Azul Yeboah, | | | | | | MD [address] | | | | | | [place] | | | | | | [place] [address] | | | | | | [phone] | | | | | | | [...] | | | | [address] [facility] [place], | | | | | | [place] [address] | | | | | | [phone] | | | | | | | [...]
--- OUTSIDE RECORDS SUMMARY | ~2020-02-18 | XMS | Encounter Summary ---
Demographics + + + | Address | [address] | | | [place] [address] | + + + | Home Phone [...] Providers + +------+ + | Care Manufacturing Lab Technician Name | Role | Phone | + +------+ + PCP | Unavailable | + +------+ + Encounter Details +--------+ + + + + | Date | Type | Department | Care Team | Description | +--------+ + + + + | 02/13/ | Hospital | [facility] [facility] | Anthony Alvarado MD | | | 2017 | Encounter | [facility] [address] | [address] [place] | | | | [address] [place] | [place], [place] | | | | | [place], [place] | [address] | | | | | [address] | [phone] | | | | | [phone] | | | +--------+ + + + [...] | | | | | [place] [address] | | | | | | [phone] | | | | | | | | | | | | Julia Fisher, | | | | | | PT | | +--------+ + + + + | 02/18/ | Appointment | Rehabilitation | Erika Ernst, | | | 2019 | | | DO [address] [place] | | | | | | [place] [address] | | | | | | [phone] | | | | | | | | | | | | [facility] OT | | +--------+ + + + + | 02/25/ | Office | Primary Care | Erika Ernst, | | | 2019 | Visit | | DO [address] [place] [address] | | | | | | [place] [address] | | | | | | [phone] | | | | | | | [...] | | | | | [place] [address] | | | | | | [phone] | | | | | | | | +--------+ + + + + | 02/27/ | Appointment | Radiology | Dhara, | | | 2019 | | | [address] | | | | | | [address] [place], | | | | | | [place] [address] | | | | | | [phone] | | | | | | | | +--------+ + + + + | 03/04/ | Appointment | Rehabilitation | Genesis Ayon OT | | | 2019 | | | | | +--------+ + + + + | 03/09/ | Office | Orthopedic Surgery | Jeffrey Gandhi, | | | 2019 | Visit | | [address] | | | | | | [place] [address] | | | | | | [phone] | | | | | | | [...] [place] | | | | | | [address] | | | | | | [phone] | | | | | | | [...] | | | | | [place] [address] | | | | | | [phone] | | | | | | | | | | | | Azul Yeboah, | | | | | | MD [address] | | | | | | [place] | | | | | | [place] [address] | | | | | | [phone] | | | | | | | [...] | | | | | | [place] [address] | | | | | | [phone] | | | | | | | | +--------+ + + + + documented as of this encounter Visit Diagnoses Not on filedocumented in this encounter"
--- OUTSIDE RECORDS SUMMARY | ~2020-02-18 | XMS | Encounter Summary ---
Demographics + + + | Address | [address] | | | [place] [address] | + + + | Home Phone [...] Team Providers + +------+ + | Care Net Programmer Name | Role | Phone | [...] | [place], [place] | [place] [address] | Dx); Right wrist | | | | [phone] | [phone] | pain | | | | [phone] | | | +--------+---------+ + + + [...] Surgeon: Fani Mahajan MD; Location: [facility] TENDON RELEASE TONSILLECTOMY WISDOM TOOTH EXTRACTION Family History Problem Relation Age of Onset Other (see comment) Mother gallbladder disease Diabetes Mother Heart disease Mother Hypertension Father Other (see comment) Father arrhymthmia Breast cancer Sister Breast cancer Maternal Grandmother Heart attack Maternal Aunt [place] Hypertension Maternal Uncle Social History Tobacco Use [...] made to ensure accuracy. However, inadvertent computerized ward nurse errors may be pre sent. documented in thi s encounter Plan of Treatment +--------+ + + + + | Date | Type | Specialty | Care Team | Description | +--------+ + + + + | 02/18/ | Appointment | Rehabilitation | Erika Ernst, | | | 2019 | | | DO [address] | | | | | | [place] [address] | | | | | | [phone] | | | | | | | | | | | | Julia Fisher, | | | | | | PT | | +--------+ + + + + | 02/18/ | Appointment | Rehabilitation | Erika Ernst, | | | 2019 | | | DO [address] [place] | | | | | | [place] [address] | | | | | | [phone] | | | | | | | | | | | | Genesis Ayon OT | | +--------+ + + + + | 02/25/ | Office | Primary Care | Erika Ernst, | | | 2019 | Visit | | DO [address] [place] | | | | | | [place] [address] | | | | | | [phone] | | | | | | | [...] | | | | | [place] [address] | | | | | | [phone] | | | | | | | | +--------+ + + + + | 02/27/ | Appointment | Radiology | Dhara, | | | 2019 | | | DWAINE [address] | | | | | | [facility] | | | | | | [place] [address] | | | | | | [phone] | | | | | | | [...] MOORE | | | | | | [place] [address] | | | | | | [phone] | | | | | | | [...] [place] | | | | | | [address] | | | | | | [phone] | | | | | | | [...] | | | | | [place] [address] | | | | | | [phone] | | | | | | | | | | | | Azul Yeboah, | | | | | | MD [address] | | | | | | [place] | | | | | | [place] [address] | | | | | | [phone] | | | | | | | [...] | | | | | [address] [place], | | | | | | [place] [address] | | | | | | [phone] | | | | | | | | +--------+ + + + + documented as of this encounter Visit Diagnoses + + | Diagnosis | + + | S/P right [facility]U tenosynovectomy on 03/20/19 - Primary | + + | Right wrist pain Pain in joint, forearm | + + documented in this encounter"
--- OUTSIDE RECORDS SUMMARY | ~2020-02-18 | XMS | Encounter Summary ---
Demographics + + + | Address | [address] | | | [place] [address] | + + + | Home Phone [...] Team Providers + +------+ + | Care Film Processor Name | Role | Phone | + +------+ + PCP | Unavailable | + +------+ + Encounter Details +--------+ + + + + | Date | Type | Department | Care Team | Description | +--------+ + + + + | 06/14/ | [facility] | [facility] | Jenise Benitez, | | | 2016 | Encounter | [facility] | [facility]IST [address] | | | | | [facility] [address] | [facility] [place] [place] [address] | | | | | [address] [place], | [phone] | | | | | [place] [address] | | | | | | [phone] | | | +--------+ + + + [...] | | 2020 | | | DO [address] [place] [address] | | | | | | [place], [place] [address] | | | | | | [phone] | | | | | | | | | | | | Julia Fisher, | | | | | | PT | | +--------+ + + + + | 02/18/ | Appointment | Rehabilitation | Erika Ernst, | | | 2019 | | | DO [address] | | | | | | [place] [address] | | | | | | [phone] | | | | | | | | | | | | Genesis Ayon, SUSAN | | +--------+ + + + + | 02/25/ | Office | Primary Care | Erika Ernst, | | | 2019 | Visit | | DO [address] | | | | | | [place] [address] | | | | | | [phone] | | | | | | | [...] | | | | | [place] [address] | | | | | | [phone] | | | | | | | | +--------+ + + + + | 02/27/ | Appointment | Radiology | Dhara, | | | 2019 | | | [address] | | | | | | [address] [place], | | | | | | [place] [address] | | | | | | [phone] | | | | | | | [...] | | | | | [place] [address] | | | | | | [phone] | | | | | | | [...] [place] | | | | | | [address] | | | | | | [phone] | | | | | | | [...] | | | | | [place] [address] | | | | | | [phone] | | | | | | | | | | | | Azul Yeboah, | | | | | | MD [address] | | | | | | [place] | | | | | | [place] [address] | | | | | | [phone] | | | | | | | [...] | | | | | | [place] [address] | | | | | | [phone] | | | | | | | | +--------+ + + + + documented as of this encounter Visit Diagnoses Not on filedocumented in this encounter"
--- OUTSIDE RECORDS SUMMARY | ~2020-02-18 | XMS | Encounter Summary ---
Demographics + + + | Address | [address] | | | [place] [address] | + + + | Home Phone [...] Team Providers + +------+ + | Care Fisher Oyster Name | Role | Phone | + [...] | [facility] | [place] [address] | | | | [address] [place], | [phone] | | | | | [place] [address] | | | | | | [phone] | | | +--------+ + + + [...] | | | | | [place] [address] | | | | | | [phone] | | | | | | | [...] [address] | | | | | | [phone] | | | | | | | | | | | | Genesis Ayon OT | | +--------+ + + + + | 02/25/ | Office | Primary Care | Erika Ernst, | | | 2019 | Visit | | DO [address] | | | | | | [place] [address] | | | | | | [phone] | | | | | | | [...] | | | | | [place] [address] | | | | | | [phone] | | | | | | | | +--------+ + + + + | 02/27/ | Appointment | Radiology | Dhara, | | | 2019 | | | [address] | | | | | | [address]TH [facility], | | | | | | [place] [address] | | | | | | [phone] | | | | | | | [...] ST | | | | | | [place] [address] | | | | | | [phone] | | | | | | | [...] [place] | | | | | | [address] | | | | | | [phone] | | | | | | | [...] | | | | | [place] [address] | | | | | | [phone] | | | | | | | | | | | | Azul Yeboah, | | | | | | MD [address] | | | | | | [place] | | | | | | [place] [address] | | | | | | [phone] | | | | | | | [...] | | | | | | [place] [address] | | | | | | [phone] | | | | | | | | +--------+ + + + + documented as of this encounter Visit Diagnoses Not on filedocumented in this encounter"
--- OUTSIDE RECORDS SUMMARY | ~2020-02-18 | XMS | Encounter Summary ---
Demographics + + + | Address | [address] | | | [place] [address] | + + + | Home Phone [...] Team Providers + +------+ + | Care Web Methods Developer Name | Role | Phone | [...] | [facility] [address] | [place] [address] | due to | | | | [address] [place], | [phone] | environmental | | | | [place] [address] | | allergies | | | | [phone] | | | +--------+---------+ + + + [...] not enough. We do not do chronic intermission coordinator pain meds in this clinic but can [...] MS | | | | | | [place] [address] | | | | | | [phone] | | | | | | | | | | | | Julia Fisher, | | | | | | PT | | +--------+ + + + + | 02/18/ | Appointment | Rehabilitation | Erika Ernst, | | | 2019 | | | DO [address] | | | | | | [place] [address] | | | | | | [phone] | | | | | | | | | | | | Genesis Ayon OT | | +--------+ + + + + | 02/25/ | Office | Primary Care | Erika Ernst, | | | 2019 | Visit | | DO [address] | | | | | | [place] [address] | | | | | | [phone] | | | | | | | [...] | | | | | [place] [address] | | | | | | [phone] | | | | | | | | +--------+ + + + + | 02/27/ | Appointment | Radiology | Dhara, | | | 2019 | | | [address] | | | | | | 4TH [facility], | | | | | | [place] [address] | | | | | | [phone] | | | | | | | [...] [place] | | | | | | [place] [address] | | | | | | [phone] | | | | | | | [...] [place] | | | | | | [address] | | | | | | [phone] | | | | | | | [...] | | | | | [place] [address] | | | | | | [phone] | | | | | | | | | | | | Azul Yeboah, | | | | | | MD [address] | | | | | | [place] | | | | | | [place] [address] | | | | | | [phone] | | | | | | | [...] | | | | | | [place] [address] | | | | | | [phone] | | | | | | | | +--------+ + + + + documented as of this encounter Visit Diagnoses + + | Diagnosis | + + | Right wrist pain - Primary Pain in joint, forearm | + + | Asthma due to environmental allergies | + + documented in this encounter
--- OUTSIDE RECORDS SUMMARY | ~2020-02-18 | XMS | Encounter Summary ---
Demographics + + + | Address | [address] | | | [place] [address] | + + + | Home Phone [...] Team Providers + +------+ + | Care Matte Cutter Name | Role | Phone | + +------+ + | Erika Ernst DO | PCP | | + +------+ + Reason for Visit + + + | Reason | Comments | + + + | Follow-up | | + + + | Knee Pain | | + + + Encounter Details +--------+---------+ + + + | Date | Type | Department | Care Team | Description | +--------+---------+ + + + | 10/30/ | Office | [place] [facility] | Erika Ernst, | Acute cystitis | | 2020 | Visit | [facility] | DO [address] | without hematuria | | | | MEDICAL [facility] | [place] [address] | (Primary Dx); | | | | [address] [place], | [phone] | Dysuria; Vitamin D | | | | [place] [address] | | deficiency; Acute | | | | [phone] | | pain of right knee; | | | | | | Essential [...] + + + | Blood Pressure | 124/76 | 10/30/2019 8:20 AM | | | | | PST | | + + + + + | Pulse | 88 | 10/30/2019 8:20 AM | | | | | PST | | + + + + + | Temperature | - | - | | + + + + + | Respiratory Rate | 18 | 10/30/2019 8:20 AM | | | | | PST | | + + + + + | Oxygen Saturation | 98% | 10/30/2019 8:20 AM | | | | | PST | | + + + + + | Inhaled Oxygen | - | - | | | Concentration | | | | + + + + + | Weight | 165.6 kg (365 lb) | 10/30/2019 8:20 AM | | | | | PST | | + + + + + | Height | 177.8 cm (5' 10") | 10/30/2019 8:20 AM | | | | | PST | | + + + + + | Body Mass Index | 52.37 | 10/30/2019 8:20 AM | | | | | PST | | + + + + + documented in this encounter Progress Erika Cespedes DO - 10/30/2019 8:20 AM PSTFormatting of this note might be different fro m the original. Subjective: Patient ID: Andrea Suh is a 29 y.o. female. Here to FU from [facility] visit on the for right knee pain. She sat down on the couch and he r knee started hurting anterior pain. No weakness or numbness. Xray no acute findings. Ice a nd rest. She was to start PT for her right ankle but did not do so due to the knee pain. Inf ormed her to start the PT and let pain be her guide on what she is able to do. Patient most likely with somatic disorder. Is to be seen by [facility] that she did a gree to see, we have had difficulty finding a provider she agrees to see. Did not take the c ipro ordered for UTI 5 days ago states did not start it because this caused her nausea once before. We will recheck UA. Encouraged fluids. She was given Vitamin D 2 by the pharmacy ins tead of D 3 and she was very upset about this though D 3 was the order. She states she took the Vitamin D 2 for a day and it made her sick and she is worried about what reaction it nam s had with her other meds. She is now on the D 3. Reassured her she will be fine and no harm from one day of D2 in stead of D3. HTN is well controlled and she bring extensive list of B P from home all normal range now. Non-smoker. Review of Systems As above Objective: BP 124/76 | Pulse 88 | Resp 18 | Ht 1.778 m (5' 10") | Wt (!) 165.6 kg (365 lb) | SpO2 98% | BMI 52.37 kg/m Physical Exam Constitutional: Appearance: Normal appearance. HENT: Head: Normocephalic and atraumatic. Cardiovascular: Rate and Rhythm: Normal rate and regular rhythm. Heart sounds: No murmur. Pulmonary: Effort: Pulmonary effort is normal. No respiratory distress. Breath sounds: Normal breath sounds. Musculoskeletal: General: No swelling. Neurological: General: No focal deficit present. Mental Status: She is alert and oriented to person, place, and time. Gait: Gait normal. Psychiatric: Mood and Affect: Mood normal. Behavior: Behavior normal. Assessment: 1. Acute cystitis without hematuria Urinalysis with Microscopic with Culture if Indicated 2. Dysuria Urinalysis with Microscopic with Culture if Indicated 3. Vitamin D deficiency 4. Acute pain of right knee 5. Essential hypertension Plan: Recheck a UA since she did not take the antibiotic ordered for the UTI 5 days ago. List Cip ro under allergies due to nausea from the med. Continue the vitamin D replacement. Continue good HTN control. She can do PT for her ankle as tolerated, knee is a mild strain at most. documented in this en counter Plan of Treatment +--------+ + + + + | Date | Type | Specialty | Care Team | Description | +--------+ + + + + | 02/18/ | Appointment | Rehabilitation | Erika Ernst, | | | 2019 | | | DO [address] | | | | | | [place] [address] | | | | | | [phone] | | | | | | | | | | | | Julia Fisher, | | | | | | PT | | +--------+ + + + + | 02/18/ | Appointment | Rehabilitation | Erika Ernst, | | | 2019 | | | DO [address] | | | | | | [place] [address] | | | | | | [phone] | | | | | | | | | | | | Genesis Ayon OT | | +--------+ + + + + | 02/25/ | Office | Primary Care | Erika Ernst, | | | 2019 | Visit | | DO [address] | | | | | | [place] [address] | | | | | | [phone] | | | | | | | [...] | | | | | [place] [address] | | | | | | [phone] | | | | | | | | +--------+ + + + + | 02/27/ | Appointment | Radiology | Dhara, | | | 2019 | | | [address] | | | | | | [address] [place], | | | | | | [place] [address] | | | | | | [phone] | | | | | | | | +--------+ + + + + | 03/04/ | Appointment | Rehabilitation | Genesis Ayon OT | | | 2019 | | | | | +--------+ + + + + | 03/09/ | Office | Orthopedic Surgery | Jeffrey Gandhi, | | | 2019 | Visit | | [address] [facility] | | | | | | [place] [address] | | | | | | [phone] | | | | | | | [...] [place] | | | | | | [address] | | | | | | [phone] | | | | | | | [...] | | | | | [place] [address] | | | | | | [phone] | | | | | | | | | | | | Azul Yeboah, | | | | | | MD [address] | | | | | | [place] | | | | | | [place] [address] | | | | | | [phone] | | | | | | | [...] | | | | | | [place] [address] | | | | | | [phone] | | | | | | | | +--------+ + + + + documented as of this encounter Procedures + +--------+ + + + | Procedure Name | Priori | Date/Time | Associated Diagnosis | Comments | | | ty | | | | + +--------+ + + + | URINALYSIS WITH | Routin | 10/30/2019 | Acute cystitis | Results for this | | MICROSCOPIC WITH | e | 8:45 AM | without hematuria | procedure are in the | | CULTURE IF INDICATED | | PST | Dysuria | results section. | + +--------+ + + + documented in this encounter Results Urinalysis with Microscopic with Culture if Indicated (10/30/2019 8:45 AM PST) + + + + + + [...] + + + | pH, Urine | 6.0 | 5.0 - 7.0 | [place] | | | | | | [facility] | | | [facility] | | | | | | [facility] | | + + + + + + | Specific | 1.010 | 1.003 - 1.030 | [place] | | | [place], | | | [facility] | | | [...] + + + + | Blood, | Negative | Negative | [place] | [...] + + + | Red Blood | 3-5 | <=5 /HPF | [...] + + | [place] [facility] | [address] | [place] | [phone] | | [facility] | | [address] | | | [facility] | | | | + + + + + documented in this encounter Visit Diagnoses + + | Diagnosis | + + | Acute cystitis without hematuria - Primary Acute cystitis | + + | Dysuria | + + | Vitamin D deficiency Unspecified vitamin D deficiency | + + | Acute pain of right knee | + + | Essential hypertension Unspecified essential hypertension | + + documented in this encounter
--- OUTSIDE RECORDS SUMMARY | ~2020-02-18 | XMS | Encounter Summary ---
Demographics + + + | Address | [address] | | | [place] [address] | + + + | Home Phone [...] Team Providers + +------+ + | Care Movement Assembly Final Inspector Name | Role | Phone | [...] | | | of left | [place] [address] | [place] [address] | | | | | ankle, | Phone: | Phone: | | | | | initial | [phone] | [phone] | | | | | encounter | Fax: | Fax: | | | | | Procedures | [phone] | [phone] | | | | | PT TREAT [...] [address] [place] | [place] [address] | encounter (Primary | | | | [place], [place] | [phone] | Dx); Fall on same | | | | [address] | | level from slipping, | | | | [phone] | Danial Tuttle | subsequent | | [...] might be differen t from the original. [facility] [address] [place] [address] Physical Therapy Daily Treatment Note Date: 10/04/2018 [...] the other pool when I go to [place]. A: We will do 1-2 more visits [...] 2019 | | | DO [address] | | | | | | [place] [address] | | | | | | [phone] | | | | | | | | | | | | Julia Fisher, | | | | | | PT | | +--------+ + + + + | 02/18/ | Appointment | Rehabilitation | Erika Ernst, | | | 2019 | | | DO [address] | | | | | | [place] [address] | | | | | | [phone] | | | | | | | | | | | | Genesis Ayon OT | | +--------+ + + + + | 02/25/ | Office | Primary Care | Erika Ernst, | | | 2019 | Visit | | DO [address] | | | | | | [place] [address] | | | | | | [phone] | | | | | | | [...] | | | | | [place] [address] | | | | | | [phone] | | | | | | | | +--------+ + + + + | 02/27/ | Appointment | Radiology | Dhara, | | | 2019 | | | [address] | | | | | [address] [place], | | | | | | [place] [address] | | | | | | [phone] | | | | | | | [...] | | | | | [place] [address] | | | | | | [phone] | | | | | | | [...] [place] | | | | | | [address] | | | | | | [phone] | | | | | | | [...] | | | | | [place] [address] | | | | | | [phone] | | | | | | | | | | | | Azul Yeboah, | | | | | | MD [address] | | | | | | [place] | | | | | | [place] [address] | | | | | | [phone] | | | | | | | [...] | | | | | | [place] [address] | | | | | | [phone] | | | | | | | | +--------+ + + + + documented as of this encounter Visit Diagnoses + + | Diagnosis | + + | Sprain of left ankle, subsequent encounter - Primary | + + | Fall on same level from slipping, subsequent encounter | + + documented in this encounter"
--- OUTSIDE RECORDS SUMMARY | ~2020-02-18 | XMS | Encounter Summary ---
Demographics + + + | Address | [address] | | | [place] [address] | + + + | Home Phone [...] Team Providers + +------+ + | Care Adhesive Bonding Machine Operator Name | Role | Phone | + +------+ + | Erika Ernst DO | PCP | | + +------+ + Reason for Visit + + + | Reason | Comments | + + + | Follow-up | | + + + Evaluate & [...] | | | | | subsequent | [place], | [address] | | | | | encounter | [place] [address] | [place], [place] | | | | | | Phone: | [phone] Phone: | | | | | | [phone] | [phone] | | | | | | Fax: | Fax: | | | | | | [phone] | [phone] | + + + + + + + Encounter Details +--------+---------+ + + + | Date | Type | Department | Care Team | Description | +--------+---------+ + + + | 09/19/ | Office | [facility] | Jeffrey Gandhi, | Radial styloid | | 2019 | Visit | [facility] | MD [address] | tenosynovitis (de | | | | MEDICINE [place] | [place] [address] | quervain) (Primary | | | | [address] | [phone] | Dx); Right wrist | | | | [place], [place] | | pain | | | | [address] | | | | | | [phone] | | | +--------+---------+ + + + [...] + + | Pulse | 78 | 09/19/2019 4:01 PM | | | | | PST | | + + + + + | Temperature | - | - | | + + + + + | Respiratory Rate | - | - | | + + + + + | Oxygen Saturation | 98% | 09/19/2019 4:01 PM | | | | | PST | | + + + + + | Inhaled Oxygen | - | - | | | Concentration | | | | + + + + + | Weight | 168.3 kg (371 lb) | 09/19/2019 4:01 PM | | | | | PST | | + + + + + | Height | 177.8 cm (5' 10") | 09/19/2019 4:01 PM | | | | | PST | | + + + + + | Body Mass Index | 53.23 | 09/19/2019 4:01 PM | | | | | PST | | + + + + + documented in this encounter Progress Notes Jeffrey Gandhi MD - 09/19/2019 3:40 PM PSTFormatting of this note might be different fro m the original. [facility]: Orthopedic Surgery Patient Name:Andrea Suh AGE: 29 y.o. :1990 CHIEF COMPLAINT: Right wrist pain HPI HISTORY OF PRESENT ILLNESS Our patient is very pleasant 29-year-old female who is status post right de Quervain's teno synovitis release and also status post wrist arthroscopy that I performed years ago who then sought out a secondary surgeon for a extensor carpi ulnaris repair. The patient due to per alfredo feelings wanted to return her care to me. The patient continues to have pain over the wrist. There is now concern of neuropathy, numbness and tingling in the form of carpal and cubital tunnel syndrome. No secondary injury of note. The problem is constant and of mild to moderate severity. No signs of myelopathy nor radiculopathy. As best as I can tell thi s neuropathy began insidiously over the past several months. REVIEW OF SYSTEMS, comprehensive review of systems performed and is negative except for not ed above and below Review of Systems Past Medical History: Diagnosis Date Allergic rhinitis Anemia Asthma Dysmenorrhea Hypertension Hypothyroid Iron deficiency Obesity ALVAREZ (obstructive sleep apnea) Periodontal disease, unspecified TMJ pain dysfunction syndrome Past Surgical History: Procedure Laterality Date EYE SURGERY HAND TENDON SURGERY Right 03/20/2019 Procedure: REPAIR E.C.U. Tendon; Surgeon: Inocencio Noriega MD; Location: [facility] RONDE SURGERY RIGHT KIDNER PROCEDURE 01/20/2016 Surgeon: Fani Mahajan MD; Location: [facility] TENDON RELEASE THYROID FINE NEEDLE ASPIRATION 09/02/2019 Procedure: US GUIDED THYROID FNA - Location: [facility]TR[facility] TONSILLECTOMY WISDOM TOOTH EXTRACTION Allergies Allergen Reactions Latex Rash Lexapro [Escitalopram] Palpitations Deblitane [Norethindrone] Hydrocodone Hives Milk Unknown Nickel Dermatitis, Itching and Swelling Uncoded Nonscreenable Allergen Other (See Comments) Other reaction(s): Proclivity to C-diff with certain antibiotics Adhesive & Tape Rash Prior to Admission medications Medication Sig Start Date End Date Taking? Authorizing Provider albuterol 2.5 mg/3 mL nebulizer solution Inhale 1-2 treatments in nebulizer every 20 minute s for 3 doses, then 1-4 treatments every 1-4 hours as needed 08/13/19 Erika Ernst, DO azelastine 0.1% nasal spray instill 1 to 2 spray into each nostril twice a day if needed Historical Provider, beclomethasone (QVAR) 80 mcg/puff inhaler Inhale 2 puffs into the lungs 2 times daily. 08/02 12/18 Erika Ernst, DO busPIRone (BUSPAR) 7.5 MG tablet Take 7.5 mg six times a day 06/04/19 Erika Ernst, DO Cetirizine HCl (ZYRTEC PO) Take by mouth. Once a week Historical Provider, COMBIVENT RESPIMAT 20-100 MCG/ACT inhaler inhale 1 puff INTO THE LUNGS every 4 hours if nee ded for shortness of breath 09/11/19 Erika Ernst, DO cyclobenzaprine (FLEXERIL) 10 mg tablet TID prn 02/28/19 Erika Baller, DO diclofenac (VOLTAREN) 1% GEL apply 1 gram topically twice a day if needed 05/13/19 Emily Mittal DPM diphenhydrAMINE (BENADRYL) 25 MG capsule Take 25 mg by mouth nightly as needed for Itching. Historical Provider, DULERA 200-5 MCG/ACT inhaler inhale 2 puffs by mouth twice a day 08/15/19 Historical Prov iderMD ferrous sulfate 325 mg tablet Take 1 tablet by mouth 3 times daily (with meals). 06/18/19 Erika Baller, DO fexofenadine-pseudoePHEDrine (JOSÉ ANTONIO-D 24) 180-240 MG per tablet Take [address] Anna Fluocinonide 0.1 % CREA apply A SMALL AMOUNT to affected area twice a day 02/18/19 Histori morales Provider, fluticasone (FLONASE ALLERGY RELIEF) 50 mcg/nasal spray 1 spray by Nasal route Daily as nee ded for Allergies. Historical Provider, Fluticasone Furoate-Vilanterol (BREO ELLIPTA IN) Inhale into the lungs. Historical Prov iderMD guaiFENesin-codeine (ROBITUSSIN AC) 100-10 mg/5 mL liquid Take 5-10 mLs by mouth every 6 ho urs as needed for Cough. 08/08/19 DWAINE Lang levothyroxine (SYNTHROID) 50 mcg tablet Take 50 mcg daily 06/18/19 Erika Baller, DO MAGNESIUM CHLORIDE PO Take by mouth. Historical Provider, meclizine (ANTIVERT) 12.5 mg tablet take 1 tablet by mouth every 6 hours if needed for dizz iness 05/24/19 Erika Baller, DO montelukast (SINGULAIR) 10 mg tablet take 1 tablet by mouth every evening 08/07/19 Erika Baller, DO prazosin (MINIPRESS) 1 mg capsule Take 1 capsule by mouth nightly. 08/01/19 Erika Conde r, DO pseudoephedrine-guaiFENesin (MUCINEX D) 60-600 mg per 12 hr tablet Take 1 tablet by mouth 2 times daily. 04/21/19 Lauryn Messer, DWAINE ramipril (ALTACE) 10 MG capsule Take 1 capsule by mouth Daily. 09/13/19 Tavares Graves SUMAtriptan (IMITREX) 100 mg tablet TAKE ONE TABLET BY MOUTH AT FIRST ONSET OF MIGRAINE SYM PTOMS, MAY REPEAT AFTER 2 HOURS; MAX DOSE 200MG IN 24 HOURS 08/21/19 Brandi Pitts DO traMADol (ULTRAM) 50 mg tablet Take 50 mg by mouth every 6 hours as needed. Historical Ricardo ellington MD UNABLE TO FIND Med Name: nell Historical Provider, Zinc 10 MG LOZG 06/02/19 Historical Provider, Family History Problem Relation Age of Onset Other (see comment) Mother gallbladder disease Diabetes Mother Heart disease Mother Hypertension Father Other (see comment) Father arrhymthmia Breast cancer Sister Breast cancer Maternal Grandmother Heart attack Maternal Aunt [place] Hypertension Maternal Uncle Social History Socioeconomic History [...] file Gets together: Not on file Attends evangelical service: Not on file Active member of [...] file Social History Narrative Not on file PHYSICAL EXAM Vital Signs: Pulse 78 | Ht 1.778 m (5' 10") | Wt (!) 168.3 kg (371 lb) | SpO2 98% | BMI 53.23 kg/m Physical Exam Well developed well nourished patient No acute distress Alert and oriented times three Head and neck are normal Oropharynx is clear Gaze is conjugate Breathing is unlabored Heart is regular rate and rhythm Ortho Exam RUE Skin is clean, dry and intact Brisk cap refill 2+ pulses No deficits noted Motor and sensation are intact No masses, no lymphadenopathy Normal sweat patterns No hyperreflexia Negative johnson's maneuver Compartments are soft and compressible' There are some diffuse dysesthesias across the volar aspect of the digits but good strength is noted. No signs of myelopathy. ECU tendon is stable in its groove. DRUJ is stable. N o carpal instability noted. No significant malicious findings PROBLEM LIST Encounter Diagnoses Name Primary? Radial styloid tenosynovitis (de quervain) Yes Right wrist pain ASSESSMENT & PLAN At this point for diagnosis of carpal and cubital tunnel syndrome I do not recommend any ty pe of therapy. I feel the DRUJ is stable so at this point I do not think more therapy is ne eded. I would like to get a copy of her nerve conduction studies to review these when tryin g to make a surgical decision especially for patient with a Worker's Compensation injury. T he patient also may need an independent medical evaluation to have these conditions excepted on her claim. I will try to get the necessary information and then give the patient my bes t recommendation. @[email or web address]@ Primary Care Physician: DO Jeffrey Haines MD This document has been prepared with Spectrum5 voice recognition system. The possibility of "s ound alike" videotape sales representative errors, and additions, or deletions may occur. If there is any que stion with respect to clarity of the message being conveyed, please contact me directly for clarification. documented in this en counter Plan of Treatment +--------+ + + + + | Date | Type | Specialty | Care Team | Description | +--------+ + + + + | 02/18/ | Appointment | Rehabilitation | Erika Ernst, | | | 2019 | | | DO [address] | | | | | | [place] [address] | | | | | | [phone] | | | | | | | | | | | | Julia Fisher, | | | | | | PT | | +--------+ + + + + | 02/18/ | Appointment | Rehabilitation | Erika Ernst, | | | 2019 | | | DO [address] | | | | | | [place] [address] | | | | | | [phone] | | | | | | | | | | | | Genesis Ayon OT | | +--------+ + + + + | 02/25/ | Office | Primary Care | Erika Ernst, | | | 2019 | Visit | | DO [address] | | | | | | [place] [address] | | | | | | [phone] | | | | | | | [...] | | | | | [place] [address] | | | | | | [phone] | | | | | | | | +--------+ + + + + | 02/27/ | Appointment | Radiology | Dhara, | | | 2019 | | | DWAINE Ross [address] [place], | | | | | | [place] [address] | | | | | | [phone] | | | | | | | [...] [place] | | | | | | [place] [address] | | | | | | [phone] | | | | | | | [...] [place] | | | | | | [address] | | | | | | [phone] | | | | | | | [...] | | | | | [place] [address] | | | | | | [phone] | | | | | | | | | | | | Azul Yeboah, | | | | | | [address] | | | | | | [place] | | | | | | [place] [address] | | | | | | [phone] | | | | | | | [...] [address] | | | | | | [phone] | | | | | | | | +--------+ + + + + documented as of this encounter Procedures + +--------+ + + + | Procedure Name | Priori | Date/Time | Associated Diagnosis | Comments | | | ty | | | | + +--------+ + + + | IMAGING REPORT - | | 10/14/2019 | | Results for this | | EXTERNAL SCAN | | 12:00 AM | | procedure are in the | | | | PST | | results section. | + +--------+ + + + documented in this encounter Results IMAGING REPORT - EXTERNAL SCAN (10/14/2019 12:00 AM PST) + + + | Narrative | Performed At | + + + | Ordered by an | | | unspecified provider. | | + + + documented in this encounter Visit Diagnoses + + | Diagnosis | + + | Radial styloid tenosynovitis (de quervain) - Primary | + + | Right wrist pain Pain in joint, forearm | + + documented in this encounter
--- OUTSIDE RECORDS SUMMARY | ~2020-02-18 | XMS | Encounter Summary ---
Demographics + + + | Address | [address] | | | [place] [address] | + + + | Home Phone [...] Team Providers + +------+ + | Care Academic Support Assistant Name | Role | Phone | [...] | | | | s (de | [place], [place] | [place] [address] | | | | | quervain) | [address] | Phone: | | | | | Pain in | Phone: | [phone] | | | | | right wrist | [phone] | Fax: | | | | | Procedures | Fax: | [phone] | | | | | OT TREAT | [phone] | | +--------+--------+ + + + + Encounter Details +--------+ + + + + | Date | Type | Department | Care Team | Description | +--------+ + + + + | 11/06/ | Hospital | [facility] [facility] | Jeffrey Gandhi, | Radial styloid | | 2019 | Encounter | HOSPITAL THERAPY OT | [address] | tenosynovitis | | | | [address] [place] | [place] [address] | (Primary Dx); Right | | | | [place], [place] | [phone] | wrist pain | | | | [address] | | | | | | [phone] | Nakia Koo OT | | +--------+ [...] | 19 | 9 | | BRACE [id number]) | | | | | | | [...] encounter Progress Notes Nakia Koo, OT - 11/06/2018 4:42 PM PST [facility] THERAPY OT [address] [place] [address] Occupational Therapy Daily Treatment Note Date: 11/06/2018 Patient Information Patient Name: Andrea Suh Date of : 1990 Age: 28 y.o. History Encounter Diagnoses Code Name Primary? M65.4 Radial styloid tenosynovitis Yes M25.531 Right wrist pain Date of Onset: 07/20/2018 Referring Provider: Jeffrey Gandhi MD Objective Today's Treatment Patient Name: Andrea Suh/: 1990/ Start Time: 1402 Stop time: 1456 Duration: 54 minutes Timed Treatment Codes: 40 minutes # of OT Visits: 14.6 Visit Summary: S: The K tape gave me a little rash last time, but it really helps. I had so me popping in my wrist when I was doing the hand helper so I decreased the resistance and th at was better. A: Light touch K tape applied in response to developed skin sensitivity. Cont inued strengthening to increase carpal stability. Next Visit: Response to strengthening. Interventions OT INTERVENTION 2: TE - 25 minutes: With 3 lb x 5 - wrist extension, radial deviation and flexion. Holding a hammer 3" from the head, controlled supination/pronation to increase wri st stability. UBC 8 minutes, alternating forward and backward each minute, 4 minutes bilater ally, 4 minutes right hand only (not billed). Wrist roll - 3 lbs x 3. Biceps curl with pres s with 5 lb weight x 15. Inclined push ups at the parallel bars x 15. TRX for inclined pul l ups x 15. 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 Electronically signed by: Nakia Koo OT, 11/06/2018 16:44 Patient Name: Andrea Suh/: 1990/ documented in this enco unter Plan of Treatment +--------+ + + + + | Date | Type | Specialty | Care Team | Description | +--------+ + + + + | 02/18/ | Appointment | Rehabilitation | Erika Ernst, | | 2019 | | | DO [address] | | | | | | [place] [address] | | | | | | [phone] | | | | | | | | | | | | Julia Fisher, | | | | | | PT | | +--------+ + + + + | 02/18/ | Appointment | Rehabilitation | Erika Ernst, | | 2019 | | | DO [address] | | | | | | [place] [address] | | | | | | [phone] | | | | | | | | | | | | Genesis Ayon, OT | | +--------+ + + + + | 02/25/ | Office | Primary Care | Erika Ernst, | | | 2019 | Visit | | DO [address] [place] [address] | | | | | | [place] [address] | | | | | | [phone] | | | | | | | [...] | | | | | [place] [address] | | | | | | [phone] | | | | | | | | +--------+ + + + + | 02/27/ | Appointment | Radiology | Dhara, | | | 2019 | | | DWAINE Ross [address] [place], | | | | | | [place] [address] | | | | | | [phone] | | | | | | | [...] [place] | | | | | | [place] [address] | | | | | | [phone] | | | | | | | [...] [place] | | | | | | [address] | | | | | | [phone] | | | | | | | [...] | | | | | [place] [address] | | | | | | [phone] | | | | | | | | | | | | Azul Yeboah, | | | | | | MD [address] | | | | | | [place] | | | | | | [place] [address] | | | | | | [phone] | | | | | | | [...] | | | | | | [place] [address] | | | | | | [phone] | | | | | | | | +--------+ + + + + documented as of this encounter Visit Diagnoses + + | Diagnosis | + + | Radial styloid tenosynovitis - Primary | + + | Right wrist pain Pain in joint, forearm | + + documented in this encounter
--- OUTSIDE RECORDS SUMMARY | ~2020-02-18 | XMS | Encounter Summary ---
Demographics + + + | Address | [address] | | | [place] [address] | + + + | Home Phone [...] Team Providers + +------+ + | Care Exceptional Student Education Aide Name | Role | Phone | [...] | Hypothyroidism, | | | | [place] [address] | [address] | unspecified type; | | | | [phone] | [phone] | Dysmenorrhea | | | | | [...] See above Clinical discussion length: 11-20 min (20069) Patient has not been seen in office within the past 7 days, and outcome of this call is not to recommend soonest available office visit. Follow up Instructions: As needed or for routine glazier artist care. documented in this encounter Plan of Treatment +--------+ + + + + | Date | Type | Specialty | Care Team | Description | +--------+ + + + + | 02/18/ | Appointment | Rehabilitation | Erika Ernst, | | | 2019 | | | DO [address] | | | | | | [place] [address] | | | | | | [phone] | | | | | | | | | | | | Julia Fisher, | | | | | | PT | | +--------+ + + + + | 02/18/ | Appointment | Rehabilitation | Erika Ernst, | | | 2019 | | | DO [address] | | | | | | [place] [address] | | | | | | [phone] | | | | | | | | | | | | Genesis Ayon, SUSAN | | +--------+ + + + + | 02/25/ | Office | Primary Care | Erika Ernst, | | | 2019 | Visit | | DO [address] | | | | | | [place] [address] | | | | | | [phone] | | | | | | | [...] | | | | | [place] [address] | | | | | | [phone] | | | | | | | | +--------+ + + + + | 02/27/ | Appointment | Radiology | Dhara, | | | 2019 | | | DWAINE Ross [address] | | | | | | [address] [facility], | | | | | | [place] [address] | | | | | | [phone] | | | | | | | | +--------+ + + + + | 03/04/ | Appointment | Rehabilitation | Genesis Ayon OT | | | 2019 | | | | | +--------+ + + + + | 03/09/ | Office | Orthopedic Surgery | Jeffrey Gandhi, | | | 2019 | Visit | | [address] [facility] | | | | | | [place] [address] | | | | | | [phone] | | | | | | | [...] [place] | | | | | | [address] | | | | | | [phone] | | | | | | | [...] | | | | | [place] [address] | | | | | | [phone] | | | | | | | | | | | | Azul Yeboah, | | | | | | MD [address] | | | | | | [place] | | | | | | [place] [address] | | | | | | [phone] | | | | | | | [...] | | | | | | [place] [address] | | | | | | [phone] | | | | | | | [...] + + | [facility] | [address] | [place], [place] | [phone] | | HOSPITAL LABORATORY | | [address] | | + + + + + [...] + + | [facility] [facility] | [address] | [place] | [phone] | | HOSPITAL LAB[facility]ATORY | | [address] | | + + + + + documented in this encounter Visit Diagnoses + + | Diagnosis | + + | Menorrhagia with irregular cycle - Primary Excessive or frequent menstruation | + + | Hypothyroidism, unspecified type | + + | Dysmenorrhea | + + documented in this encounter"
--- OUTSIDE RECORDS SUMMARY | ~2020-02-18 | XMS | Encounter Summary ---
Demographics + + + | Address | [address] | | | [place] [address] | + + + | Home Phone [...] Team Providers + +------+ + | Care Material Mixer Name | Role | Phone | + +------+ + PCP | Unavailable | + +------+ + Encounter Details +--------+ + + + + | Date | Type | Department | Care Team | Description | +--------+ + + + + | 10/11/ | [facility] | Spenser Roberts NP | | | 2014 | Encounter | [facility] | [address], | | | | | MEDICAL [facility] [address] | [place] [address] | | | | | [address] [facility], | [phone] | | | | | [place] [address] | | | | | | [phone] | | | +--------+ + + + [...] | | | | | [place] [address] | | | | | | [phone] | | | | | | | | | | | | Julia Fisher, | | | | | | PT | | +--------+ + + + + | 02/18/ | Appointment | Rehabilitation | Erika Ernst, | | | 2019 | | | DO [address] | | | | | | [place] [address] | | | | | | [phone] | | | | | | | | | | | | Genesis Ayon OT | | +--------+ + + + + | 02/25/ | Office | Primary Care | Erika Ernst, | | | 2019 | Visit | | DO [address] | | | | | | [place] [address] | | | | | | [phone] | | | | | | | [...] | | | | | | [place] [address] | | | | | | [phone] | | | | | | | | +--------+ + + + + | 02/27/ | Appointment | Radiology | Dhara, | | | 2019 | | | DWAINE Ross [address] | | | | | | [address] [facility], | | | | | | [place] [address] | | | | | | [phone] | | | | | | | | +--------+ + + + + | 03/04/ | Appointment | Rehabilitation | Genesis Ayon OT | | | 2019 | | | | | +--------+ + + + + | 03/09/ | Office | Orthopedic Surgery | Jeffrey Gandhi, | | 2019 | Visit | | [address] | | | | | | [place] [address] | | | | | | [phone] | | | | | | | [...] [place] | | | | | | [address] | | | | | | [phone] | | | | | | | [...] | | | | | [place] [address] | | | | | | [phone] | | | | | | | | | | | | Azul Yeboah, | | | | | | MD [address] | | | | | | [place] | | | | | | [place] [address] | | | | | | [phone] | | | | | | | [...] | | | | | | [place] [address] | | | | | | [phone] | | | | | | | | +--------+ + + + + documented as of this encounter Visit Diagnoses Not on filedocumented in this encounter"
--- OUTSIDE RECORDS SUMMARY | ~2020-02-18 | XMS | Encounter Summary ---
Demographics + + + | Address | [address] | | | [place] [address] | + + + | Home Phone [...] Providers + +------+ + | Care Certified Medical Biller Name | Role | Phone | + [...] Services | | Asthma due | Erika Salter DO | Tyrese Chapin MD | | | Required | | to | [address] | [address] | | | | | environmenta | [place], | [address] | | | | | l allergies | [place] [address] | [place], [place] | | | | | | Phone: | [address] | | | | | | [phone] | Phone: | | | | | | Fax: | [phone] | | | | | | [phone] | Fax: | | | | | | | [phone] | +--------+ + + + + + [...] | | depression | [place], | [place] | | | | | type | [place] [address] | Health and | | | | | | Phone: | Service | | | | | | [phone] | | | | | | | Fax: | | | | | | | [phone] | | +--------+ + + + + [...] Essential | | 2018 | Visit | [facility] | DO [address] | hypertension | | | | MEDICAL CLINIC [address] | [place] [address] | (Primary Dx); Asthma | | | [address] [place], | [phone] | due to | | | | [place] [address] | | environmental | | | | [phone] | | allergies; | | | | [...] | | | | | [place] [address] | | | | | | [phone] | | | | | | | | | | | | Julia Fisher, | | | | | | PT | | +--------+ + + + + | 02/18/ | Appointment | Rehabilitation | Erika Ernst, | | | 2019 | | | DO [address] [place] | | | | | | [place] [address] | | | | | | [phone] | | | | | | | | | | | | Genesis Ayon, OT | | +--------+ + + + + | 02/25/ | Office | Primary Care | Erika Ernst, | | | 2019 | Visit | | DO [address] [place] | | | | | | [place] [address] | | | | | | [phone] | | | | | | | [...] | | | | | [place] [address] | | | | | | [phone] | | | | | | | | +--------+ + + + + | 02/27/ | Appointment | Radiology | Dhara, | | | 2019 | | | DWAINE Ross [address] [place], | | | | | | [place] [address] | | | | | | [phone] | | | | | | | | +--------+ + + + + | 03/04/ | Appointment | Rehabilitation | Genesis Ayon OT | | | 2019 | | | | | +--------+ + + + + | 03/09/ | Office | Orthopedic Surgery | Jeffrey Gandhi, | | 2019 | Visit | | [address] [facility] | | | | | | [place] [address] | | | | | | [phone] | | | | | | | [...] [place] | | | | | | [address] | | | | | | [phone] | | | | | | | [...] | | | | | [place] [address] | | | | | | [phone] | | | | | | | | | | | | Azul Yeboah, | | | | | | MD [address] | | | | | | [place] | | | | | | [place] [address] | | | | | | [phone] | | | | | | | [...] | | | [facility] | | | | | | [place] [address] | | | | | | [phone] | | | | | | | [...] + + | [facility] | [address] | [place] | [phone] | | HOSPITAL LABORATORY | | [address] | | + + + + + [...] | mL/min/1.73m2 | [facility] | | | [facility] | RATE,ESTIMATED | | [facility] | | | | mL/min/1.48q3Kmmx than | | LABORATORY | | | [...] + + | [facility] [facility] | [address] | [place] | [phone] | | HOSPITAL LABORATORY | | [address] | | + + + + + [...]
--- OUTSIDE RECORDS SUMMARY | ~2020-02-18 | XMS | Encounter Summary ---
Demographics + + + | Address | [address] | | | [place] [address] | + + + | Home Phone [...] Providers + +------+ + | Care Residential Lawn Specialist Name | Role | Phone | + +------+ + | Erika Ernst DO | PCP | | + +------+ + Reason for Visit +--------+ + | Reason | Comments | +--------+ + | | | +--------+ + | | | +--------+ + Encounter Details +--------+---------+ + + + | Date | Type | Department | Care Team | Description | +--------+---------+ + + + | 01/01/ | Office | [place] [facility] | [place], | Diarrhea, | | 2020 | Visit | [facility] | joanna, PENSION FUND MANAGER [address] | unspecified type | | | | [facility] [address] | [address] [place] | (Primary Dx); | | | | [address] [place], | [place] [address] | Dysuria | | | | [place] [address] | [phone] | | | | | [phone] | | | +--------+---------+ + + + [...] + + + | Blood Pressure | 110/60 | 01/02/2020 1:16 PM | | | | | PDT | | + + + + + | Pulse | 80 | 01/02/2020 1:16 PM | | | | | PDT | | + + + + + | Temperature | 36.5 C (97.7 F) | 01/02/2020 1:16 PM | | | | | PDT | | + + + + + | Respiratory Rate | 16 | 01/02/2020 1:16 PM | | | | | PDT | | + + + + + | Oxygen Saturation | 97% | 01/02/2020 1:16 PM | | | | | PDT | | + + + + + | Inhaled Oxygen | - | - | | | Concentration | | | | + + + + + | Weight | 160.6 kg (354 lb) | 01/02/2020 1:16 PM | | | | | PDT | | + + + + + | Height | - | - | | + + + + + | Body Mass Index | 50.79 | 12/26/2019 8:52 AM | | | | | PDT | | + + + + + documented in this encounter Progress Salinas Pagan FNP - 01/02/2020 1:00 PM PDTFormatting of this note might be differe nt from the original. No chief complaint on file. Assessment 1. Diarrhea, unspecified type - Clostridium difficile; Future 2. Dysuria - Urinalysis with Microscopic with Culture if Indicated; Future Plan - stool test today to r/o c.diff UA to be done today Increase fluid intake May use Tylenol/ibuprofen for discomfort Subjective: Patient ID: Andrea Suh is a 29 y.o. female who is new to me, here with diarrhea. Ricardo samayoa is concerned because she has had numerous rounds of antibiotics in a short period of time and has a history of C. difficile when she was younger. Diarrhea This is a new problem. The current episode started yesterday (cramping in flank region star everardo about 4 days ago. ). The problem occurs 5 to 10 times per day. The problem has been waxi ng and waning. The stool consistency is described as blood tinged. The patient states that d iarrhea does not awaken her from sleep. Associated symptoms comments: Bilateral flank pain. Nothing aggravates the symptoms. Risk factors include recent antibiotic use. She has tried n othing for the symptoms. She stated that the last antibiotic she was on was for a UTI. She states that she does no t have symptoms when this happens. She has stopped the antibiotic without completing the fu ll course. She wants to be rechecked to ensure that she does not have a UTI. Objective: BP 110/60 | Pulse 80 | Temp 36.5 C (97.7 F) (Temporal) | Resp 16 | Wt (!) 160.6 kg (354 lb) | SpO2 97% | BMI 50.79 kg/m Physical Exam Constitutional: Appearance: She is obese. Cardiovascular: Heart sounds: Normal heart sounds. Pulmonary: Breath sounds: Normal breath sounds. Abdominal: Tenderness: There is no right CVA tenderness or left CVA tenderness. Skin: General: Skin is warm and dry. Neurological: Mental Status: She is oriented to person, place, and time. Psychiatric: Mood and Affect: Mood normal. Social History Socioeconomic History Marital status: Single [...] file Gets together: Not on file Attends adventist service: Not on file Active member of [...] Tape Rash Electronically signed by DWAINE Orozco 01/02/2020 13:31 Note: Part of this report was transcribed using voice recognition software. Every effort wa s made to ensure accuracy. However, inadvertent computerized optical technician errors may be pre sent documented [...] | | | | | [place] [address] | | | | | | [phone] | | | | | | | | | | | | Julia Fisher, | | | | | | PT | | +--------+ + + + + | 02/18/ | Appointment | Rehabilitation | Erika Ernst, | | | 2019 | | | DO [address] | | | | | | [place] [address] | | | | | | [phone] | | | | | | | | | | | | Genesis Ayon, OT | | +--------+ + + + + | 02/25/ | Office | Primary Care | Erika Ernst, | | | 2019 | Visit | | DO [address] [place] | | | | | | [place] [address] | | | | | | [phone] | | | | | | | [...] | | | | | [place] [address] | | | | | | [phone] | | | | | | | | +--------+ + + + + | 02/27/ | Appointment | Radiology | Dhara, | | | 2019 | | | DWAINE Ross [address] | | | | | | 4TH [facility], | | | | | | [place] [address] | | | | | | [phone] | | | | | | | | +--------+ + + + + | 03/04/ | Appointment | Rehabilitation | Genesis Ayon OT | | | 2019 | | | | | +--------+ + + + + | 03/09/ | Office | Orthopedic Surgery | Jeffrey Gandhi, | | 2019 | Visit | | [address] | | | | | | [place] [address] | | | | | | [phone] | | | | | | | [...] [place] | | | | | | [address] | | | | | | [phone] | | | | | | | [...] | | | | | [place] [address] | | | | | | [phone] | | | | | | | | | | | | Azul Yeboah, | | | | | | MD [address] | | | | | | [place] | | | | | | [place] [address] | | | | | | [phone] | | | | | | | [...] | | | | | | [place] [address] | | | | | | [phone] | | | | | | | | +--------+ + + + + + + +--------+ + + | Name | Type | Priori | Associated Diagnoses | Order Schedule | | | | ty | | | + + +--------+ + + | Clostridium | Microbiolog | Routin | Diarrhea, | 1 Occurrences | | difficile | y | e | unspecified type | starting 01/02/2020 | | | | | | until 01/01/2021 | + + +--------+ + + documented as of this encounter Results Urinalysis with Microscopic with Culture if Indicated (01/02/2020 1:37 PM PDT) + + + + + [...] - 1.030 | [place] | | | [place], | | | [place]DE | | | [...] + + | [place] [facility] | [address] | [place] | [phone] | | [facility] | | [address] | | | [facility] | | | | + + + + + documented in this encounter Visit Diagnoses + + | Diagnosis | + + | Diarrhea, unspecified type - Primary | + + | Dysuria | + + documented in this encounter"
--- OUTSIDE RECORDS SUMMARY | ~2020-02-18 | XMS | Encounter Summary ---
Demographics + + + | Address | [address] | | | [place] [address] | + + + | Home Phone [...] Providers + +------+ + | Care Senior Process Control Tech Name | Role | Phone | [...] 06/12/ | Telephone | [place] [facility] | Emily Avery | Results, Imaging | | 2019 | | [facility] | DO Radha [address] | | | | | CL[address] | [address] [place] | | | | | [address] [place], | [place], [place] | | | | | [place] [address] | [address] | | | | | [phone] | [phone] | | | | | | | [...] | | | | | [place] [address] | | | | | | [phone] | | | | | | | | | | | | Julia Fisher, | | | | | | PT | | +--------+ + + + + | 02/18/ | Appointment | Rehabilitation | Erika Ernst, | | | 2019 | | | DO [address] [place] | | | | | | [place] [address] | | | | | | [phone] | | | | | | | | | | | | Genesis Ayon, SUSAN | | +--------+ + + + + | 02/25/ | Office | Primary Care | Erika Ernst, | | | 2019 | Visit | | DO [address] [place] | | | | | | [place] [address] | | | | | | [phone] | | | | | | | [...] | | | | | [place] [address] | | | | | | [phone] | | | | | | | | +--------+ + + + + | 02/27/ | Appointment | Radiology | Dhara, | | | 2019 | | | DWAINE Ross [address] | | | | | | [address] [facility] [place], | | | | | | [place] [address] | | | | | | [phone] | | | | | | | | +--------+ + + + + | 03/04/ | Appointment | Rehabilitation | Genesis Ayon OT | | | 2019 | | | | | +--------+ + + + + | 03/09/ | Office | Orthopedic Surgery | Jeffrey Gandhi, | | | 2019 | Visit | | [address] [facility] | | | | | | [place] [address] | | | | | | [phone] | | | | | | | [...] [place] | | | | | | [address] | | | | | | [phone] | | | | | | | [...] | | | | | [place] [address] | | | | | | [phone] | | | | | | | | | | | | Azul Yeboah, | | | | | | MD [address] | | | | | | [place] | | | | | | [place] [address] | | | | | | [phone] | | | | | | | [...] | | | | | | [place] [address] | | | | | | [phone] | | | | | | | | +--------+ + + + + documented as of this encounter Visit Diagnoses Not on filedocumented in this encounter"
--- OUTSIDE RECORDS SUMMARY | ~2020-02-18 | XMS | Encounter Summary ---
Demographics + + + | Address | [address] | | | [place] [address] | + + + | Home Phone [...] Team Providers + +------+ + | Care Die Finisher Name | Role | Phone | [...] | 2019 | | [facility] | [address] [place] | Coordination | | | | MEDICAL CLINIC [address] | [place] [address] | | | | | [address] [place], | [phone] | | | | | [place] [address] | | | | | | [phone] | | | +--------+ + + + [...] | | | | | [place] [address] | | | | | | [phone] | | | | | | | | | | | | Julia Fisher, | | | | | | PT | | +--------+ + + + + | 02/18/ | Appointment | Rehabilitation | Erika Ernst, | | | 2019 | | | DO [address] [place] | | | | | | [place] [address] | | | | | | [phone] | | | | | | | | | | | | Genesis Ayon, OT | | +--------+ + + + + | 02/25/ | Office | Primary Care | Erika Ernst, | | | 2019 | Visit | | DO [address] [place] | | | | | | [place] [address] | | | | | | [phone] | | | | | | | [...] | | | | | [place] [address] | | | | | | [phone] | | | | | | | | +--------+ + + + + | 02/27/ | Appointment | Radiology | Dhara, | | | 2019 | | | DWAINE Ross [address] | | | | | | 4TH [facility], | | | | | | [place] [address] | | | | | | [phone] | | | | | | | [...] [place] | | | | | | [place] [address] | | | | | | [phone] | | | | | | | [...] [place] | | | | | | [address] | | | | | | [phone] | | | | | | | [...] | | | | | [place] [address] | | | | | | [phone] | | | | | | | | | | | | Azul Yeboah, | | | | | | MD [address] | | | | | | [place] | | | | | | [place] [address] | | | | | | [phone] | | | | | | | [...] | | | | | | [place] [address] | | | | | | [phone] | | | | | | | | +--------+ + + + + documented as of this encounter Visit Diagnoses Not on filedocumented in this encounter"
--- OUTSIDE RECORDS SUMMARY | ~2020-02-18 | XMS | Encounter Summary ---
Demographics + + + | Address | [address] | | | [place] [address] | + + + | Home Phone [...] Team Providers + +------+ + | Care Floor Broker Name | Role | Phone | [...] | | | of left | [place] [address] | [place] [address] | | | | | ankle, | Phone: | Phone: | | | | | initial | [phone] | [phone] | | | | | encounter | Fax: | Fax: | | | | | Procedures | [phone] | [phone] | | | | | PT TREAT [...] [address] [place] | [place] [address] | encounter (Primary | | | | [place], [place] | [phone] | Dx) | | | | [address] | | | | | | [phone] | Nick Barrios I, PT | | [...] might be different fro m the original. [facility] PT [address] [place] [address] Physical Therapy Daily Treatment Note Date: 09/07/2018 [...] in favor of SL heel raise with GUIDANCE COUNSELOR. ONGOING: SLS on even surface 3x30 seconds [...] minutes) Rhomberg stance on airex eyes closed GUIDANCE COUNSELOR as needed 2x1 minute // SLS on even ground GUIDANCE COUNSELOR grab bar as needed 1x30 seconds 2x1 [...] | | | | | [place] [address] | | | | | | [phone] | | | | | | | | | | | | Julia Fisher, | | | | | | PT | | +--------+ + + + + | 02/18/ | Appointment | Rehabilitation | Erika Ernst, | | | 2019 | | | DO [address] [place] | | | | | | [place] [address] | | | | | | [phone] | | | | | | | | | | | | Genesis Ayon OT | | +--------+ + + + + | 02/25/ | Office | Primary Care | KleverErika, | | | 2019 | Visit | | DO [address] [place] [address] ST [place] | | | | | | [place] [address] | | | | | | [phone] | | | | | | | [...] | | | | | [place] [address] | | | | | | [phone] | | | | | | | | +--------+ + + + + | 02/27/ | Appointment | Radiology | Dhara, | | | 2019 | | | DWAINE Ross [address] | | | | | | [address] [place], | | | | | | [place] [address] | | | | | | [phone] | | | | | | | | +--------+ + + + + | 03/04/ | Appointment | Rehabilitation | Genesis Ayon OT | | | 2019 | | | | | +--------+ + + + + | 03/09/ | Office | Orthopedic Surgery | Jeffrey Gandhi, | | | 2019 | Visit | | [address] [facility] | | | | | | [place] [address] | | | | | | [phone] | | | | | | | [...] [place] | | | | | | [address] | | | | | | [phone] | | | | | | | [...] | | | | | [place] [address] | | | | | | [phone] | | | | | | | | | | | | Azul Yeboah, | | | | | | [address] | | | | | | [place] | | | | | | [place] [address] | | | | | | [phone] | | | | | | | [...] | | | | | | [place] [address] | | | | | | [phone] | | | | | | | | +--------+ + + + + documented as of this encounter Visit Diagnoses + + | Diagnosis | + + | Sprain of left ankle, subsequent encounter - Primary | + + documented in this encounter
--- OUTSIDE RECORDS SUMMARY | ~2020-02-18 | XMS | Encounter Summary ---
Demographics + + + | Address | [address] | | | [place] [address] | + + + | Home Phone [...] Team Providers + +------+ + | Care Transplant Nurse Name | Role | Phone | + +------+ + PCP | Unavailable | + +------+ + Encounter Details +--------+ + + + + | Date | Type | Department | Care Team | Description | +--------+ + + + + | 05/28/ | [facility] | Nicanor Mckeon | | | 2017 | Encounter | [facility] | MD Caryn [address] | | | | | W[facility] [address] | [place] | | | | | 4TH [facility], | [address] | | | | | [place] [address] | [phone] | | | | | [phone] | | | +--------+ + + + [...] | | | | | [place] [address] | | | | | | [phone] | | | | | | | | | | | | Julia Fisher, | | | | | | PT | | +--------+ + + + + | 02/18/ | Appointment | Rehabilitation | Erika Ernst, | | | 2019 | | | DO [address] [place] | | | | | | [place] [address] | | | | | | [phone] | | | | | | | | | | | | Genesis Ayon, OT | | +--------+ + + + + | 02/25/ | Office | Primary Care | Erika Ernst, | | | 2019 | Visit | | DO [address] [place] | | | | | | [place] [address] | | | | | | [phone] | | | | | | | [...] | | | | | [place] [address] | | | | | | [phone] | | | | | | | | +--------+ + + + + | 02/27/ | Appointment | Radiology | Dhara, | | | 2019 | | | DWAINE Ross [address] | | | | | | [address] [place], | | | | | | [place] [address] | | | | | | [phone] | | | | | | | | +--------+ + + + + | 03/04/ | Appointment | Rehabilitation | Genesis Ayon OT | | | 2019 | | | | | +--------+ + + + + | 03/09/ | Office | Orthopedic Surgery | Jeffrey Gandhi, | | | 2019 | Visit | | [address] [facility] | | | | | | [place] [address] | | | | | | [phone] | | | | | | | [...] [place] | | | | | | [address] | | | | | | [phone] | | | | | | | [...] | | | | | [place] [address] | | | | | | [phone] | | | | | | | | | | | | Azul Yeboah, | | | | | | [address] | | | | | | [place] | | | | | | [place] [address] | | | | | | [phone] | | | | | | | [...] | | | | | | [place] [address] | | | | | | [phone] | | | | | | | | +--------+ + + + + documented as of this encounter Visit Diagnoses Not on filedocumented in this encounter"
--- OUTSIDE RECORDS SUMMARY | ~2020-02-18 | XMS | Encounter Summary ---
Demographics + + + | Address | [address] | | | [place] [address] | + + + | Home Phone [...] Team Providers + +------+ + | Care Change Management Specialist Name | Role | Phone [...] | | | PT TREAT | [place] [address] | [place] [address] | | | | | | Phone: | Phone: | | | | | | [phone] | [phone] | | | | | | Fax: | Fax: | | | | | | [phone] | [phone] | +--------+--------+ + + + + Encounter [...] [address] [place] | [place] [address] | History of falling; | | | | [place] | [phone] | Sprain of | | | | [address] | | calcaneofibular | | | | [phone] | Julia Fisher, | ligament of left [...] | 11/26/19 | | | (VITAMIN D3) 89123 | mouth Once a week | tablet [...] Fisher PT - 01/23/2019 9:19 AM PDT [facility] PT [address] [place] [address] Physical Therapy Progress Assessment Date: 01/23/2019 Patient [...] Seated marching 1minx2. LAQ Ongoing: Wall sits [id number] holds, Bridging 3 x 10 reps, Side [...] plan for care. Electronically signed by: Julia Fisher, PT, 01/23/2019 9:19 Patient Name: Andrea King Angeli/: 1990/ signed by Julia Fisher PT at [...] | | | | | [place] [address] | | | | | | [phone] | | | | | | | | | | | | Julia Fisher, | | | | | | PT | | +--------+ + + + + | 02/18/ | Appointment | Rehabilitation | Erika Ernst, | | | 2019 | | | DO [address] [place] | | | | | | [place] [address] | | | | | | [phone] | | | | | | | | | | | | Genesis Ayon OT | | +--------+ + + + + | 02/25/ | Office | Primary Care | Erika Ernst, | | | 2019 | Visit | | DO [address] [place] [address] | | | | | | [place] [address] | | | | | | [phone] | | | | | | | [...] | | | | | [place] [address] | | | | | | [phone] | | | | | | | | +--------+ + + + + | 02/27/ | Appointment | Radiology | Dhara, | | | 2019 | | | DWAINE Ross [address] | | | | | | [address] [place], | | | | | | [place] [address] | | | | | | [phone] | | | | | | | | +--------+ + + + + | 03/04/ | Appointment | Rehabilitation | Genesis Ayon OT | | | 2019 | | | | | +--------+ + + + + | 03/09/ | Office | Orthopedic Surgery | Jeffrey Gandhi, | | | 2019 | Visit | | [address] | | | | | | [place] [address] | | | | | | [phone] | | | | | | | [...] [place] | | | | | | [address] | | | | | | [phone] | | | | | | | [...] | | | | | [place] [address] | | | | | | [phone] | | | | | | | | | | | | Azul Yeboah, | | | | | | [address] | | | | | | [place] | | | | | | [place] [address] | | | | | | [phone] | | | | | | | [...] | | | | | | [place] [address] | | | | | | [phone] | | | | | | | [...]
--- OUTSIDE RECORDS SUMMARY | ~2020-02-18 | XMS | Encounter Summary ---
Demographics + + + | Address | [address] | | | [place] [address] | + + + | Home Phone [...] Providers + +------+ + | Care Rotary Peel Oven Tender Name | Role | Phone | [...] Bilateral | | 2019 | Visit | [facility] | RUBBER COMPOUNDER SUPERVISOR-AUTOMATIC CLIPPER AND STRIPPER [address] | temporomandibular | | | | WALK[facility]IN CLINIC [address] | [address] [place] | joint pain (Primary | | | | [address] [place], | [place] [address] | Dx) | | | | [place] [address] | [phone] | | | | | [phone] | | | +--------+---------+ + + + [...] mouth. Once a week Cholecalciferol (VITAMIN D3) 90333 units TABS Take 1 tablet by mouth [...] with right all his physical therapist about [facility] physical th erapy. She reported that [...] as planned. Electronically signed by: BRADLEY [email or web address] [facility], Walk-in [facility] Note: Part of this report was transcribed using voice recognition software. Every effort wa s made to ensure accuracy. However, inadvertent computerized recruitment and outreach assistant errors may be pre sent. documente d [...] | | | | | [place] [address] | | | | | | [phone] | | | | | | | | | | | | Julia Fisher, | | | | | | PT | | +--------+ + + + + | 02/18/ | Appointment | Rehabilitation | Erika Ernst, | | | 2019 | | | DO [address] [place] | | | | | | [place] [address] | | | | | | [phone] | | | | | | | | | | | | Genesis Ayon OT | | +--------+ + + + + | 02/25/ | Office | Primary Care | Erika Ernst, | | | 2019 | Visit | | DO [address] [place] | | | | | | [place] [address] | | | | | | [phone] | | | | | | | [...] | | | | | [place] [address] | | | | | | [phone] | | | | | | | | +--------+ + + + + | 02/27/ | Appointment | Radiology | Dhara, | | | 2019 | | | DWAINE Ross [address] | | | | | | [address] [place], | | | | | | [place] [address] | | | | | | [phone] | | | | | | | | +--------+ + + + + | 03/04/ | Appointment | Rehabilitation | Genesis Ayon OT | | | 2019 | | | | | +--------+ + + + + | 03/09/ | Office | Orthopedic Surgery | Jeffrey Gandhi, | | | 2019 | Visit | | [place] [address] | | | | | | [place] [address] | | | | | | [phone] | | | | | | | [...] [place] | | | | | | [address] | | | | | | [phone] | | | | | | | [...] | | | | | [place] [address] | | | | | | [phone] | | | | | | | | | | | | Azul Yeboah, | | | | | | MD [address] | | | | | | [place] | | | | | | [place] [address] | | | | | | [phone] | | | | | | | [...] | | | | | | [place] [address] | | | | | | [phone] | | | | | | | | +--------+ + + + + documented as of this encounter Visit Diagnoses + + | Diagnosis | + + | Bilateral temporomandibular joint pain - Primary Arthralgia of temporomandibular | | joint | + + documented in this encounter
--- OUTSIDE RECORDS SUMMARY | ~2020-02-18 | XMS | Encounter Summary ---
Demographics + + + | Address | [address] | | | [place] [address] | + + + | Home Phone [...] Team Providers + +------+ + | Care Litigation Legal Assistant Name | Role | Phone | + +------+ + PCP | Unavailable | + +------+ + Encounter Details +--------+ + + + + | Date | Type | Department | Care Team | Description | +--------+ + + + + | 05/20/ | [facility] | [place] [facility] | Amaya Varner NP | | | 2015 | Encounter | [facility] | [address] | | | | | MEDICAL CLINIC [address] | [place], [place] | | | | | [address] [place], | [address] | | | | | [place] [address] | [phone] | | | | | [phone] | | | +--------+ + + + [...] | | | | | [place] [address] | | | | | | [phone] | | | | | | | | | | | | Julia Fisher, | | | | | | PT | | +--------+ + + + + | 02/18/ | Appointment | Rehabilitation | Erika Ernst, | | | 2019 | | | DO [address] [place] | | | | | | [place] [address] | | | | | | [phone] | | | | | | | | | | | | Genesis Ayon, SUSAN | | +--------+ + + + + | 02/25/ | Office | Primary Care | Erika Ernst, | | | 2019 | Visit | | DO [address] [place] | | | | | | [place] [address] | | | | | | [phone] | | | | | | | [...] | | | | | [place] [address] | | | | | | [phone] | | | | | | | | +--------+ + + + + | 02/27/ | Appointment | Radiology | Dhara, | | | 2019 | | | DWAINE Ross [address] | | | | | | 4TH [facility], | | | | | | [place] [address] | | | | | | [phone] | | | | | | | | +--------+ + + + + | 03/04/ | Appointment | Rehabilitation | Genesis Ayon OT | | | 2019 | | | | | +--------+ + + + + | 03/09/ | Office | Orthopedic Surgery | Jeffrey Gandhi, | | | 2019 | Visit | | [address] [facility] | | | | | | [place] [address] | | | | | | [phone] | | | | | | | [...] [place] | | | | | | [address] | | | | | | [phone] | | | | | | | [...] | | | | | [place] [address] | | | | | | [phone] | | | | | | | | | | | | Azul Yeboah, | | | | | | MD [address] | | | | | | [place] [place] | | | | | | [place] [address] | | | | | | [phone] | | | | | | | [...] | | | | | | [place] [address] | | | | | | [phone] | | | | | | | | +--------+ + + + + documented as of this encounter Visit Diagnoses Not on filedocumented in this encounter"
--- OUTSIDE RECORDS SUMMARY | ~2020-02-18 | XMS | Encounter Summary ---
Demographics + + + | Address | [address] | | | [place] [address] | + + + | Home Phone [...] Providers + +------+ + | Care Software Design Analyst Name | Role | Phone | [...] Description | +--------+--------+ + + + | 08/07/ | Refill | [place] [facility] | Erika Ernst, | Medication Refill | | 2019 | | [facility] | DO [address] | | | | | MEDICAL CL[facility] [address] | [place] [address] | | | | [address] [place], | [phone] | | | | | [place] [address] | | | | | | [phone] | | | +--------+--------+ + + + [...] | | | | | [place] [address] | | | | | | [phone] | | | | | | | | | | | | Julia Fisher, | | | | | | PT | | +--------+ + + + + | 02/18/ | Appointment | Rehabilitation | Erika Ernst, | | | 2019 | | | DO [address] | | | | | | [place] [address] | | | | | | [phone] | | | | | | | | | | | | Genesis Ayon OT | | +--------+ + + + + | 02/25/ | Office | Primary Care | Erika Ernst, | | | 2019 | Visit | | DO [address] | | | | | | [place] [address] | | | | | | [phone] | | | | | | | [...] | | | | | [place] [address] | | | | | | [phone] | | | | | | | | +--------+ + + + + | 02/27/ | Appointment | Radiology | Dhara, | | | 2019 | | | [address] | | | | | | 4TH [facility], | | | | | | [place] [address] | | | | | | [phone] | | | | | | | [...] MOORE | | | | | | [place] [address] | | | | | | [phone] | | | | | | | [...] [place] | | | | | | [address] | | | | | | [phone] | | | | | | | [...] | | | | | [place] [address] | | | | | | [phone] | | | | | | | | | | | | Azul Yeboah, | | | | | | MD [address] | | | | | | [address] [place] | | | | | | [place] [address] | | | | | | [phone] | | | | | | | [...] | | | | | | [place] [address] | | | | | | [phone] | | | | | | | | +--------+ + + + + documented as of this encounter Visit Diagnoses Not on filedocumented in this encounter"
--- OUTSIDE RECORDS SUMMARY | ~2020-02-18 | XMS | Encounter Summary ---
Demographics + + + | Address | [address] | | | [place] [address] | + + + | Home Phone [...] Team Providers + +------+ + | Care Sole Stainer Name | Role | Phone | + [...] [address] | | | | | [place] [address] | | | | | | [phone] | | | +--------+ + + + [...] | | | | | [place] [address] | | | | | | [phone] | | | | | | | | | | | | Julia Fisher, | | | | | | PT | | +--------+ + + + + | 02/18/ | Appointment | Rehabilitation | Erika Ernst, | | | 2019 | | | DO [address] | | | | | | [place] [address] | | | | | | [phone] | | | | | | | | | | | | Genesis Ayon OT | | +--------+ + + + + | 02/25/ | Office | Primary Care | Erika Ernst, | | | 2019 | Visit | | DO [address] | | | | | | [place] [address] | | | | | | [phone] | | | | | | | [...] | | | | | [place] [address] | | | | | | [phone] | | | | | | | | +--------+ + + + + | 02/27/ | Appointment | Radiology | Dhara, | | | 2019 | | | [address] | | | | | | 4TH [facility], | | | | | | [place] [address] | | | | | | [phone] | | | | | | | | +--------+ + + + + | 03/04/ | Appointment | Rehabilitation | Genesis Ayon OT | | | 2019 | | | | | +--------+ + + + + | 03/09/ | Office | Orthopedic Surgery | Jeffrey Gandhi, | | | 2019 | Visit | | [address] | | | | | | [place] [address] | | | | | | [phone] | | | | | | | [...] [place] | | | | | | [address] | | | | | | [phone] | | | | | | | [...] | | | | | [place] [address] | | | | | | [phone] | | | | | | | | | | | | Azul Yeboah, | | | | | | MD [address] | | | | | | [address] [place] | | | | | | [place] [address] | | | | | | [phone] | | | | | | | [...] | | | | | | [place] [address] | | | | | | [phone] | | | | | | | | +--------+ + + + + documented as of this encounter Visit Diagnoses Not on filedocumented in this encounter"
--- OUTSIDE RECORDS SUMMARY | ~2020-02-18 | XMS | Encounter Summary ---
Demographics + + + | Address | [address] | | | [place] [address] | + + + | Home Phone [...] Providers + +------+ + | Care Hotel Maintenance Worker Name | Role | Phone | [...] | | | | | [address] [place], | [address] | | | | | [place] [address] | [phone] | | | | | [phone] | | | +--------+ + + + [...] | | 2020 | | | DO [facility] | | | | | | [place], [place] [address] | | | | | | [phone] | | | | | | | | | | | | Julia Fisher, | | | | | | PT | | +--------+ + + + + | 02/18/ | Appointment | Rehabilitation | Erika Ernst, | | | 2019 | | | DO [address] | | | | | | [place] [address] | | | | | | [phone] | | | | | | | | | | | | Genesis Ayon, SUSAN | | +--------+ + + + + | 02/25/ | Office | Primary Care | Erika Ernst, | | | 2019 | Visit | | DO [address] | | | | | | [place] [address] | | | | | | [phone] | | | | | | | [...] | | | | | [place] [address] | | | | | | [phone] | | | | | | | | +--------+ + + + + | 02/27/ | Appointment | Radiology | Dhara, | | | 2019 | | | [address] | | | | | | 4TH [facility] [place], | | | | | | [place] [address] | | | | | | [phone] | | | | | | | [...] | | | | | [place] [address] | | | | | | [phone] | | | | | | | [...] 2019 | Visit | Gynecology | DO Jcakelyn Garcia | | | | | | [address] | | | | | | [place] | | | | | | [address] | | | | | | [phone] | | | | | | | [...] | | | | | [place] [address] | | | | | | [phone] | | | | | | | | | | | | Azul Yeboah, | | | | | | MD [address] | | | | | | [place] [address] [place] | | | | | | [place] [address] | | | | | | [phone] | | | | | | | [...] | | | | | | [place] [address] | | | | | | [phone] | | | | | | | | +--------+ + + + + documented as of this encounter Visit Diagnoses Not on filedocumented in this encounter"
--- OUTSIDE RECORDS SUMMARY | ~2020-02-18 | XMS | Encounter Summary ---
Demographics + + + | Address | [address] | | | [place] [address] | + + + | Home Phone [...] Providers + +------+ + | Care Change Room Attendant Name | Role | Phone | + +------+ + | Erika Ernst DO | PCP | | + +------+ + Reason for Visit + + + | Reason | Comments | + + + | Re-assessment/ | | | Significant Change | | | Care Plan | | + + + Encounter Details +--------+ + + + + | Date | Type | Department | Care Team | Description | +--------+ + + + + | 01/22/ | Documentati | [place] [facility] | Michela Azevedo, | Re-assessment/ | | 2019 | on | HOSPITAL [facility] OT | OT | Significant Change | | | | [address] [place] | | Care Plan | | | | [place] | | | | | | [address] | | | | | | [phone] | | | +--------+ + + + [...] encounter Progress Notes Michela Azevedo, OT - 01/22/2019 7:50 AM PDT01/22/19 Recertification without a visit: As of last visit Andrea had made very little measurable gains. She has seen Dr. Noriega for a seco nd opinion who has ordered an MRI which she is scheduled to have next Monday. She is schedul ed for a follow up with him on 02/12/19 as well as being on his cancellation list if an openi ng becomes available sooner. At this time Fran has denied the patient more OT visits aimee johnson as she is undergoing more testing this OT case will remain open in the event that this p atient requires more services from this condition. Pt has reported that Dr. Gandhi would like her to continue more OT however Fran has denied further services based on no request has been received from Dr. Gandhi. 12/21/2018 - PROGRESS REVIEW: Andrea has made very little measurable gains this month. In par t this may be because of an additional injury that occurred a few weeks ago. 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 She plans to seek a second opinion and at this time, her therapy will be placed on hold until further diagnostic work has been done. 11/29/2018 - PROGRESS REVIEW: Andrea has made significant functional gains during this report ing period and is compliant with wrist and database security administrator strengthening exercises. She does still have deficits in database security administrator strength and wrist stability as well as pain with daily activities. Her arya b description may be changing which would decrease the physical demands of her work, making it more appropriate for her current status. She continues to benefit from Occupational Thera py to maximize her database security administrator strength and wrist stability following this injury and return her to prior level of function. 10/30/2018 - REASON FOR RE-CERTIFICATION: Andrea has received 12 Occupational Therapy treatme nts since 08/07/2018 following her right wrist surgery. She has regained full AROM of the rig ht wrist but continues to have right wrist, database security administrator and pinch weakness and significant pain (3- [...] in 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, and database security administrator and pinch weakness in the right hand [...] ri ght hand including return to work. documented in this encounter Plan of Treatment +--------+ + + + + | Date | Type | Specialty | Care Team | Description | +--------+ + + + + | 02/18/ | Appointment | Rehabilitation | Erika Ernst, | | | 2019 | | | DO [address] | | | | | | [place] [address] | | | | | | [phone] | | | | | | | | | | | | Julia Fisher, | | | | | | PT | | +--------+ + + + + | 02/18/ | Appointment | Rehabilitation | Erika Ernst, | | | 2019 | | | DO [address] | | | | | | [place] [address] | | | | | | [phone] | | | | | | | | | | | | Genesis Ayon OT | | +--------+ + + + + | 02/25/ | Office | Primary Care | Erika Ernst, | | | 2019 | Visit | | DO [address] | | | | | | [place] [address] | | | | | | [phone] | | | | | | | [...] | | | | | [place] [address] | | | | | | [phone] | | | | | | | | +--------+ + + + + | 02/27/ | Appointment | Radiology | Dhara, | | | 2019 | | | [address] | | | | | [address] [place], | | | | | | [place] [address] | | | | | | [phone] | | | | | | | [...] ST | | | | | | [place] [address] | | | | | | [phone] | | | | | | | [...] [place] | | | | | | [address] | | | | | | [phone] | | | | | | | [...] | | | | | [place] [address] | | | | | | [phone] | | | | | | | | | | | | Azul Yeboah, | | | | | | MD [address] | | | | | | [place] | | | | | | [place] [address] | | | | | | [phone] | | | | | | | [...] | | | | | | [place] [address] | | | | | | [phone] | | | | | | | | +--------+ + + + + documented as of this encounter Visit Diagnoses + + | Diagnosis | + + | Radial styloid tenosynovitis - Primary | + + | Right wrist pain Pain in joint, forearm | + + documented in this encounter"
--- OUTSIDE RECORDS SUMMARY | ~2020-02-18 | XMS | Encounter Summary ---
Demographics + + + | Address | [address] | | | [place] [address] | + + + | Home Phone [...] Providers + +------+ + | Care Toll Transmission Worker Name | Role | Phone | [...] | Herbert Herron | Results | | 2018 | | [facility] | LISA Abad | | | | | [address] | | | | | | [place] | | | | | | [address] | | | | | | [phone] | | | +--------+ + + + [...] | | | | | [place] [address] | | | | | | [phone] | | | | | | | | | | | | Julia Fisher, | | | | | | PT | | +--------+ + + + + | 02/18/ | Appointment | Rehabilitation | Erika Ernst, | | | 2019 | | | DO [address] | | | | | | [place] [address] | | | | | | [phone] | | | | | | | | | | | | Genesis Ayon OT | | +--------+ + + + + | 02/25/ | Office | Primary Care | Erika Ernst, | | | 2019 | Visit | | DO [address] | | | | | | [place] [address] | | | | | | [phone] | | | | | | | [...] | | | | | [place] [address] | | | | | | [phone] | | | | | | | | +--------+ + + + + | 02/27/ | Appointment | Radiology | Dhara, | | | 2019 | | | [address] | | | | | | 4TH [facility], | | | | | | [place] [address] | | | | | | [phone] | | | | | | | [...] | | | | | [place] [address] | | | | | | [phone] | | | | | | | [...] [place] | | | | | | [address] | | | | | | [phone] | | | | | | | [...] | | | | | [place] [address] | | | | | | [phone] | | | | | | | | | | | | Azul Yeboah, | | | | | | MD [address] | | | | | | [place] [place] | | | | | | [place] [address] | | | | | | [phone] | | | | | | | [...] | | | | | | [place] [address] | | | | | | [phone] | | | | | | | | +--------+ + + + + documented as of this encounter Visit Diagnoses Not on filedocumented in this encounter"
--- OUTSIDE RECORDS SUMMARY | ~2020-02-18 | XMS | Encounter Summary ---
Demographics + + + | Address | [address] | | | [place] [address] | + + + | Home Phone [...] Team Providers + +------+ + | Care Last Sawyer Name | Role | Phone | + +------+ + PCP | Unavailable | + +------+ + Encounter Details +--------+ + + + + | Date | Type | Department | Care Team | Description | +--------+ + + + + | 02/10/ | [facility] [place] [facility] | Denise Mcgregor | | | 2016 | Encounter | [facility] | G, MANAGING EDITOR | | | | | MEDICAL CLINIC [address] | | | | | | [address]TH [place], | | | | | | [place] [address] | | | | | | [phone] | | | +--------+ + + + [...] | | | | | [place] [address] | | | | | | [phone] | | | | | | | | | | | | Julia Fisher, | | | | | | PT | | +--------+ + + + + | 02/18/ | Appointment | Rehabilitation | Erika Ernst, | | 2019 | | | DO [address] | | | | | | [place] [address] | | | | | | [phone] | | | | | | | | | | | | Genesis Ayon, SUSAN | | +--------+ + + + + | 02/25/ | Office | Primary Care | Erika Ernst, | | | 2019 | Visit | | DO [address] [place] [address] | | | | | | [place] [address] | | | | | | [phone] | | | | | | | [...] | | | | | [place] [address] | | | | | | [phone] | | | | | | | | +--------+ + + + + | 02/27/ | Appointment | Radiology | Dhara, | | | 2019 | | | [address] | | | | | | [address] [place], | | | | | | [place] [address] | | | | | | [phone] | | | | | | | [...] | | | | | [place] [address] | | | | | | [phone] | | | | | | | [...] [place] | | | | | | [address] | | | | | | [phone] | | | | | | | | +--------+ + + + + | 03/25/ | Appointment | Rehabilitation | Geneiss Ayon OT | | | 2019 | | | | | +--------+ + + + + | 04/08/ | Office | Neurology | Erika Ernst, | | | 2019 | Visit | | DO [address] | | | | | | [place] [address] | | | | | | [phone] | | | | | | | | | | | | Azul Yeboah, | | | | | | MD [address] | | | | | | [place] | | | | | | [place] [address] | | | | | | [phone] | | | | | | | [...] | | | | | | [place] [address] | | | | | | [phone] | | | | | | | | +--------+ + + + + documented as of this encounter Visit Diagnoses Not on filedocumented in this encounter"
--- OUTSIDE RECORDS SUMMARY | ~2020-02-18 | XMS | Encounter Summary ---
Demographics + + + | Address | [address] | | | [place] [address] | + + + | Home Phone [...] Providers + +------+ + | Care Transport Operations Inspector Name | Role | Phone | [...] | | | | s (de | [place], [place] | [place] [address] | | | | | quervain) | [address] | Phone: | | | | | Pain in | Phone: | [phone] | | | | | right wrist | [phone] | Fax: | | | | | Procedures | Fax: | [phone] | | | | | OT TREAT | [phone] | | +--------+--------+ + + + + [...] | | [address] [place] | [place] [address] | (Primary Dx); Right | | | | [place], [place] | [phone] | wrist pain | | | | [address] | | | | | | [phone] | Nakia Koo OT | | +--------+ [...] | 11/26/19 | | | (VITAMIN D3) 47537 | mouth Once a week | tablet [...] Koo OT - 12/03/2018 5:18 PM PST [facility] THERAPY OT [address] [place] [address] Occupational Therapy Daily Treatment Note Date: 12/03/2018 [...] period and is compliant with wrist and clinical reimbursement specialist strengthening exercises. She does still hav e deficits in clinical reimbursement specialist strength and wrist stability as well as pain with daily activities. Her j ob description may be changing which would decrease the physical demands of her work, making it more appropriate for her current status. She continues to benefit from [employer] apy to maximize her clinical reimbursement specialist strength and wrist stability following this injury and return her t o prior level of function. 10/30/2018 - REASON FOR RE-CERTIFICATION: Andrea has received 12 Occupational Therapy treatme nts since 08/07/2018 following her right wrist surgery. She has regained full AROM of the rig ht wrist but continues to have right wrist, clinical reimbursement specialist and pinch weakness and significant pain (3- [...] in 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, and clinical reimbursement specialist and pinch weakness in the right [...] | | | | | [place] [address] | | | | | | [phone] | | | | | | | | | | | | Julia Fisher, | | | | | | PT | | +--------+ + + + + | 02/18/ | Appointment | Rehabilitation | Erika Ernst, | | | 2019 | | | DO [address] | | | | | | [place] [address] | | | | | | [phone] | | | | | | | | | | | | Genesis Ayon, OT | | +--------+ + + + + | 02/25/ | Office | Primary Care | Erika Ernst, | | | 2019 | Visit | | DO [address] | | | | | | [place] [address] | | | | | | [phone] | | | | | | | [...] | | | | | [place] [address] | | | | | | [phone] | | | | | | | | +--------+ + + + + | 02/27/ | Appointment | Radiology | Dhara, | | | 2019 | | | [address] | | | | | | [address] [place], | | | | | | [place] [address] | | | | | | [phone] | | | | | | | | +--------+ + + + + | 03/04/ | Appointment | Rehabilitation | Genesis Ayon OT | | | 2019 | | | | | +--------+ + + + + | 03/09/ | Office | Orthopedic Surgery | Jeffrey Gandhi, | | | 2019 | Visit | | [address] [facility] | | | | | | [place] [address] | | | | | | [phone] | | | | | | | [...] [place] | | | | | | [address] | | | | | | [phone] | | | | | | | [...] | | | | | [place] [address] | | | | | | [phone] | | | | | | | | | | | | Azul Yeboah, | | | | | | MD [address] | | | | | | [place] | | | | | | [place] [address] | | | | | | [phone] | | | | | | | [...] | | | | | | [place] [address] | | | | | | [phone] | | | | | | | | +--------+ + + + + documented as of this encounter Visit Diagnoses + + | Diagnosis | + + | Radial styloid tenosynovitis - Primary | + + | Right wrist pain Pain in joint, forearm | + + documented in this encounter"
--- OUTSIDE RECORDS SUMMARY | ~2020-02-18 | XMS | Encounter Summary ---
Demographics + + + | Address | [address] | | | [place] [address] | + + + | Home Phone [...] Team Providers + +------+ + | Care Laboratory Helper Name | Role | Phone | [...] pt | | 2019 | | [facility] | [address] | on 09-10-19 - Pt | | | | MEDICAL CLINIC [address] | [place] [address] | needs to know when | | | | [address] [place], | [phone] | she's due for lab | | | | [place] [address] | | draw) | | | | [phone] | | | +--------+ + + + [...] | | | | | [place] [address] | | | | | | [phone] | | | | | | | | | | | | Julia Fisher, | | | | | | PT | | +--------+ + + + + | 02/18/ | Appointment | Rehabilitation | Erika Ernst, | | | 2019 | | | DO [address] | | | | | | [place] [address] | | | | | | [phone] | | | | | | | | | | | | Genesis Ayon OT | | +--------+ + + + + | 02/25/ | Office | Primary Care | Erika Ernst, | | | 2019 | Visit | | DO [address] | | | | | | [place] [address] | | | | | | [phone] | | | | | | | [...] | | | | | [place] [address] | | | | | | [phone] | | | | | | | | +--------+ + + + + | 02/27/ | Appointment | Radiology | Dhara, | | | 2019 | | | [address] | | | | | | [address] [place], | | | | | | [place] [address] | | | | | | [phone] | | | | | | | | +--------+ + + + + | 03/04/ | Appointment | Rehabilitation | Genesis Ayon OT | | 2019 | | | | | +--------+ + + + + | 03/09/ | Office | Orthopedic Surgery | Jeffrey Gandhi, | | 2019 | Visit | | [place] [address] | | | | | | [place] [address] | | | | | | [phone] | | | | | | | [...] [place] | | | | | | [address] | | | | | | [phone] | | | | | | | [...] | | | | | [place] [address] | | | | | | [phone] | | | | | | | | | | | | Azul Yeboah, | | | | | | MD [address] | | | | | | [place] | | | | | | [place] [address] | | | | | | [phone] | | | | | | | [...] | | | | | | [place] [address] | | | | | | [phone] | | | | | | | | +--------+ + + + + documented as of this encounter Visit Diagnoses Not on filedocumented in this encounter"
--- OUTSIDE RECORDS SUMMARY | ~2020-02-18 | XMS | Encounter Summary ---
Demographics + + + | Address | [address] | | | [place] [address] | + + + | Home Phone [...] Team Providers + +------+ + | Care Shoemaking Cutter Name | Role | Phone | + +------+ + PCP | Unavailable | + +------+ + Encounter Details +--------+ + + + + | Date | Type | Department | Care Team | Description | +--------+ + + + + | 02/07/ | [facility] | Spenser Roberts NP | | | 2014 | Encounter | [facility] | [address], | | | | | MEDICAL CLINIC [address] | [place] [address] | | | | | [address] [facility], | [phone] | | | | | [place] [address] | | | | | | [phone] | | | +--------+ + + + [...] | | | | | [place] [address] | | | | | | [phone] | | | | | | | | | | | | Julia Fisher, | | | | | | PT | | +--------+ + + + + | 02/18/ | Appointment | Rehabilitation | Erika Ernst, | | | 2019 | | | DO [address] | | | | | | [place] [address] | | | | | | [phone] | | | | | | | | | | | | Genesis Ayon OT | | +--------+ + + + + | 02/25/ | Office | Primary Care | Erika Ernst, | | | 2019 | Visit | | DO [address] | | | | | | [place] [address] | | | | | | [phone] | | | | | | | [...] | | | | | [place] [address] | | | | | | [phone] | | | | | | | | +--------+ + + + + | 02/27/ | Appointment | Radiology | Dhara, | | | 2019 | | | [address] | | | | | | [address] [facility] [place], | | | | | | [place] [address] | | | | | | [phone] | | | | | | | | +--------+ + + + + | 03/04/ | Appointment | Rehabilitation | Genesis Ayon OT | | | 2019 | | | | | +--------+ + + + + | 03/09/ | Office | Orthopedic Surgery | Jeffrey Gandhi, | | 2019 | Visit | | [address] | | | | | | [place] [address] | | | | | | [phone] | | | | | | | [...] [place] | | | | | | [address] | | | | | | [phone] | | | | | | | [...] | | | | | [place] [address] | | | | | | [phone] | | | | | | | | | | | | Azul Yeboah, | | | | | | MD [address] | | | | | | [place] | | | | | | [place] [address] | | | | | | [phone] | | | | | | | [...] | | | | | | [place] [address] | | | | | | [phone] | | | | | | | | +--------+ + + + + documented as of this encounter Visit Diagnoses Not on filedocumented in this encounter"
--- OUTSIDE RECORDS SUMMARY | ~2020-02-18 | XMS | Encounter Summary ---
Demographics + + + | Address | [address] | | | [place] [address] | + + + | Home Phone [...] Providers + +------+ + | Care Railroad Brake Repairer Name | Role | Phone | [...] + + + + | 11/26/ | Telephone | [place] [facility] | Sherry Huertan Jena, | Results | | 2018 | | [facility] | SUPERVISOR POWDERED SUGAR | | | | | [facility] | | | | | | [facility] [facility] [place], | | | | | | [place] [address] | | | | | | [phone] | | | +--------+ + + + [...] | | 2020 | | | DO [address] [place] [address] | | | | | | [place] [address] | | | | | | [phone] | | | | | | | | | | | | Julia Fisher, | | | | | | PT | | +--------+ + + + + | 02/18/ | Appointment | Rehabilitation | Erika Ernst, | | | 2019 | | | DO [address] | | | | | | [place] [address] | | | | | | [phone] | | | | | | | | | | | | Genesis Ayon, SUSAN | | +--------+ + + + + | 02/25/ | Office | Primary Care | Erika Ernst, | | | 2019 | Visit | | DO [address] | | | | | | [place] [address] | | | | | | [phone] | | | | | | | [...] | | | | | [place] [address] | | | | | | [phone] | | | | | | | | +--------+ + + + + | 02/27/ | Appointment | Radiology | Dhara, | | | 2019 | | | [address]WA[address] | | | | | | [address] [place], | | | | | | [place] [address] | | | | | | [phone] | | | | | | | [...] | | | | | [place] [address] | | | | | | [phone] | | | | | | | [...] [place] | | | | | | [address] | | | | | | [phone] | | | | | | | [...] | | | | | [place] [address] | | | | | | [phone] | | | | | | | | | | | | Azul Yeboah, | | | | | | MD [address] | | | | | | [place] | | | | | | [place] [address] | | | | | | [phone] | | | | | | | [...] | | | | | | [place] [address] | | | | | | [phone] | | | | | | | | +--------+ + + + + documented as of this encounter Visit Diagnoses Not on filedocumented in this encounter"
--- OUTSIDE RECORDS SUMMARY | ~2020-02-18 | XMS | Encounter Summary ---
Demographics + + + | Address | [address] | | | [place] [address] | + + + | Home Phone [...] + +------+ + | Care Director Of Database Marketing Name | Role | Phone | [...] 01/01/ | Telephone | [place] [facility] | Erika Ernst, | Lab Results | | 2019 | | [facility] | DO [address] | | | | | [facility] | [place] [address] | | | | [address] [place], | [phone] | | | | | [place] [address] | | | | | | [phone] | | | +--------+ + + + [...] [place] | | | | | | [place] [address] | | | | | | [phone] | | | | | | | | | | | | Julia Fisher, | | | | | | PT | | +--------+ + + + + | 02/18/ | Appointment | Rehabilitation | Erika Ernst, | | | 2019 | | | DO [address] | | | | | | [place] [address] | | | | | | [phone] | | | | | | | | | | | | Genesis Ayon OT | | +--------+ + + + + | 02/25/ | Office | Primary Care | Erika Ernst, | | | 2019 | Visit | | DO [address] | | | | | | [place] [address] | | | | | | [phone] | | | | | | | [...] | | | | | [place] [address] | | | | | | [phone] | | | | | | | | +--------+ + + + + | 02/27/ | Appointment | Radiology | Dhara, | | | 2019 | | | [address]WA[address] | | | | | | [facility] [facility] [place], | | | | | | [place] [address] | | | | | | [phone] | | | | | | | [...] | | | | | [place] [address] | | | | | | [phone] | | | | | | | [...] [place] | | | | | | [address] | | | | | | [phone] | | | | | | | [...] | | | | | [place] [address] | | | | | | [phone] | | | | | | | | | | | | Azul Yeboah, | | | | | | MD [address] | | | | | | [place] | | | | | | [place] [address] | | | | | | [phone] | | | | | | | [...] | | | | | | [place] [address] | | | | | | [phone] | | | | | | | | +--------+ + + + + documented as of this encounter Visit Diagnoses Not on filedocumented in this encounter"
--- OUTSIDE RECORDS SUMMARY | ~2020-02-18 | XMS | Encounter Summary ---
Demographics + + + | Address | [address] | | | [place] [address] | + + + | Home Phone [...] Team Providers + +------+ + | Care Habilitative Interventionist Name | Role | Phone | + [...] [address] | | | | | [place] [address] | | | | | | [phone] | | | +--------+ + + + [...] | | | | | [place] [address] | | | | | | [phone] | | | | | | | | | | | | Julia Fisher, | | | | | | PT | | +--------+ + + + + | 02/18/ | Appointment | Rehabilitation | Erika Ernst, | | | 2019 | | | DO [address] | | | | | | [place] [address] | | | | | | [phone] | | | | | | | | | | | | Genesis Ayon OT | | +--------+ + + + + | 02/25/ | Office | Primary Care | Erika Ernst, | | | 2019 | Visit | | DO [address] | | | | | | [place] [address] | | | | | | [phone] | | | | | | | [...] | | | | | [place] [address] | | | | | | [phone] | | | | | | | | +--------+ + + + + | 02/27/ | Appointment | Radiology | Dhara, | | | 2019 | | | [address] | | | | | | 4TH [facility], | | | | | | [place] [address] | | | | | | [phone] | | | | | | | | +--------+ + + + + | 03/04/ | Appointment | Rehabilitation | Genesis Ayon OT | | | 2019 | | | | | +--------+ + + + + | 03/09/ | Office | Orthopedic Surgery | Jeffrey Gandhi, | | | 2019 | Visit | | [address] | | | | | | [place] [address] | | | | | | [phone] | | | | | | | [...] [place] | | | | | | [address] | | | | | | [phone] | | | | | | | [...] | | | | | [place] [address] | | | | | | [phone] | | | | | | | | | | | | Azul Yeboah, | | | | | | MD [address] | | | | | | [place] | | | | | | [place] [address] | | | | | | [phone] | | | | | | | | +--------+ + + + + | 04/08/ | Appointment | Nutrition | Jnael Webster | | | 2019 | | | [place], [place] | | +--------+ + + + + | 05/21/ | Office | Neurology | Dhara, | | | 2020 | Visit | | [address] | | | | | | [address] [place], | | | | | | [place] [address] | | | | | | [phone] | | | | | | | | +--------+ + + + + documented as of this encounter Visit Diagnoses Not on filedocumented in this encounter"
--- OUTSIDE RECORDS SUMMARY | ~2020-02-18 | XMS | Encounter Summary ---
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 [address] | index finger, | | | | [address] [place] [address] | initial encounter | | | | [place], [place] | [place] [address] | | | | | [address] | [phone] | | | | | [phone] | | | +--------+ + + + [...] | 04/12/20 | | | (VITAMIN D3) [address] | mouth Once a week | tablet [...] | | | | | [place] [address] | | | | | | [phone] | | | | | | | | | | | | Julia Fisher, | | | | | | PT | | +--------+ + + + + | 02/18/ | Appointment | Rehabilitation | Erika Ernst, | | | 2019 | | | DO [address] | | | | | | [place] [address] | | | | | | [phone] | | | | | | | | | | | | Genesis Ayon, OT | | +--------+ + + + + | 02/25/ | Office | Primary Care | Erika Ernst, | | | 2019 | Visit | | DO [address] | | | | | | [place] [address] | | | | | | [phone] | | | | | | | [...] | | | | | [place] [address] | | | | | | [phone] | | | | | | | | +--------+ + + + + | 02/27/ | Appointment | Radiology | Dhara, | | | 2019 | | | [address] | | | | | | [address] [place], | | | | | | [place] [address] | | | | | | [phone] | | | | | | | | +--------+ + + + + | 03/04/ | Appointment | Rehabilitation | Genesis Ayon OT | | 2019 | | | | | +--------+ + + + + | 03/09/ | Office | Orthopedic Surgery | Jeffrey Gandhi, | | | 2019 | Visit | | [address] [facility] | | | | | | [place] [address] | | | | | | [phone] | | | | | | | [...] [place] | | | | | | [address] | | | | | | [phone] | | | | | | | [...] | | | | | [place] [address] | | | | | | [phone] | | | | | | | | | | | | Azul Yeboah, | | | | | | [address] | | | | | | [place] | | | | | | [place] [address] | | | | | | [phone] | | | | | | | [...] | | | | | | [place] [address] | | | | | | [phone] | | | | | | | | +--------+ + + + + documented as of this encounter Procedures + +--------+ + + + | Procedure Name | Priori | Date/Time | Associated Diagnosis | Comments | | | ty | | | | + +--------+ + + + | XR FINGER RIGHT 2 + | Routin | 05/06/2019 | Injury of right | Results for this | | VW | e | 6:47 PM | index finger, | procedure are in the | | | | PDT | initial encounter | results section. | + +--------+ + + + documented in this encounter Results XR Finger Right 2 [...] Injury of right index finger, initial encounter | + + documented in this encounter"
--- OUTSIDE RECORDS SUMMARY | ~2020-02-18 | XMS | Encounter Summary ---
Demographics + + + | Address | [address] | | | [place] [address] | + + + | Home Phone [...] Team Providers + +------+ + | Care Shipwright Supervisor Name | Role | Phone | + +------+ + | Erika Ernst DO | PCP | | + +------+ + Reason for Visit + + + | Reason | Comments | + + + | Paperwork | nurse only | + + + Encounter Details +--------+ + + + + | Date | Type | Department | Care Team | Description | +--------+ + + + + | 11/01/ | Clinical | [place] [facility] | Erika Ernst, | | | 2019 | Support | [facility] | DO [address] | | | | | MEDICAL CLIN[facility] [address] | [place] [address] | | | | | [address] [place], | [phone] | | | | | [place] [address] | | | | | | [phone] | | | +--------+ + + + [...] encounter Progress Notes Eden Brown LPN - 11/01/2019 3:00 PM PSTPatient brought in records for ela Jain an appointment she had with Obinna about her sleep apnea, and it telling about her heart condition as well. Paperwork given to Dr. Ernst. Eden Brown LPN documented in this encounter Plan of Treatment +--------+ + + + + | Date | Type | Specialty | Care Team | Description | +--------+ + + + + | 02/18/ | Appointment | Rehabilitation | Erika Ernst, | | | 2019 | | | DO [address] | | | | | | [place] [address] | | | | | | [phone] | | | | | | | | | | | | Julia Fisher, | | | | | | PT | | +--------+ + + + + | 02/18/ | Appointment | Rehabilitation | Erika Ernst, | | | 2019 | | | DO [address] | | | | | | [place] [address] | | | | | | [phone] | | | | | | | | | | | | Genesis Ayon, OT | | +--------+ + + + + | 02/25/ | Office | Primary Care | Erika Ernst, | | | 2019 | Visit | | DO [address] | | | | | | [place] [address] | | | | | | [phone] | | | | | | | [...] | | | | | [place] [address] | | | | | | [phone] | | | | | | | | +--------+ + + + + | 02/27/ | Appointment | Radiology | Dhara, | | | 2019 | | | [address]WAINE [address] | | | | | | [address]TH [facility], | | | | | | [place] [address] | | | | | | [phone] | | | | | | | | +--------+ + + + + | 03/04/ | Appointment | Rehabilitation | Genesis Ayon OT | | | 2019 | | | | | +--------+ + + + + | 03/09/ | Office | Orthopedic Surgery | Jeffrey Gandhi, | | | 2019 | Visit | | [address] | | | | | | [place] [address] | | | | | | [phone] | | | | | | | [...] [place] | | | | | | [address] | | | | | | [phone] | | | | | | | [...] | | | | | [place] [address] | | | | | | [phone] | | | | | | | | | | | | Azul Yeboah, | | | | | | MD [address] | | | | | | [place] | | | | | | [place] [address] | | | | | | [phone] | | | | | | | [...] | | | | | | [place] [address] | | | | | | [phone] | | | | | | | | +--------+ + + + + documented as of this encounter Visit Diagnoses Not on filedocumented in this encounter"
--- OUTSIDE RECORDS SUMMARY | ~2020-02-18 | XMS | Encounter Summary ---
Demographics + + + | Address | [address] | | | [place] [address] | + + + | Home Phone [...] Team Providers + +------+ + | Care Mechanic Industrial Truck Name | Role | Phone | + +------+ + | Erika Ernst DO | PCP | | + +------+ + Reason for Visit + + + | Reason | Comments | + + + | Re-assessment/ | | | Significant Change | | | Care Plan | | + + + Evaluate & Treat (Urgent) + +--------+ + [...] | | | right ankle, | [place] [address] | [place] [address] | | | | | subsequent | Phone: | Phone: | | | | | encounter | [phone] | [phone] | | | | | Procedures | Fax: | Fax: | | | | | PT TREAT | [phone] | [phone] | + +--------+ + + + + Encounter Details +--------+ + + + + | Date | Type | Department | Care Team | Description | +--------+ + + + + | 12/31/ | Hospital | [place] [facility] | Erika Ernst, | Sprain of deltoid | | 2019 | Encounter | HOSPITAL THERAPY PT | DO [address] | ligament of right | | | | [address] | [place] [address] | ankle, subsequent | | | | [place], [place] | [phone] | encounter (Primary | | | | [address] | | Dx) | | | | [phone] | Julia Fisher, | | | | [...] Inhale 1-2 | 120 | 0 | / | | | mL nebulizer | treatments [...] tablet by | 10 | 0 | 12/30/19 | | | (ZOFRAN ODT) 4 mg [...] as of this encounter Progress Notes Julia Fisher, PT - 01/01/2020 3:00 PM PDT [facility] PT [address] [place] [address] Physical Therapy Progress Assessment Date: 01/01/2020 Patient Information Patient Name: Andrea Suh Date of : 1990 Age: 29 y.o. Encounter Diagnoses Code Name Primary? S93.421D Sprain of deltoid ligament of right ankle, subsequent encounter Yes Date of Onset: 05/21/2019 Referring Provider: Erika Ernst, DO Objective Standardized Tests: Lower Extremity Functional Scale (LEFS) [...] 4 - No difficulty Walking a mile: 3 - A little bit of difficulty Going up or down 10 stairs (about 1 flight of stairs): 2 - Moderate difficulty Standing for 1 hour: 4 - No difficulty Sitting for 1 hour: 4 - No difficulty Running on even ground: 2 - Moderate difficulty Running on uneven ground: 1 - Quite a bit of difficulty Making sharp turns while running fast: 1 - Quite a bit of difficulty Hoppin - Quite a bit of difficulty Rolling over in bed: 4 - No difficulty Lower Extremity Functional Scale Score (Calculated): 59 Lower Extremity Functional Scale Goal: Patient will improve score on LEFS to >65 indicating decreased severity of disability Lower Extremity Functional Scale Goal Status: Mild improvement by 2 points Today's Treatment Patient Name: Andrea Suh/: 1990/ Start Time: 1500 Stop time: 1544 Duration: 44 minutes Timed Treatment Codes: 44 minutes # of PT Visits: 5 Visit Summary: S: Pt reports that she is doing okay, hasn't had to do stairs so that hasn't been hurting her ankle. Feels like it's where the scar tissue is. Knees are slowly getting better, still running. Feels like the SL balance on the pillow at home has been yudi most hel pful. A: See progress summary. Verbal and return demo instruction of new exercises and self- STM techniques as below. Pt aware to contact PT with any questions or concerns during this h old in treatment. Next Visit Information: On hold due to COVID19 -- Short foot/intrinsics, progress general a nkle/foot strengthening, STM, GT Patient/Caregiver Education Learner: Patient Readiness: Acceptance Method: Explanation Response: Verbalizes Understanding Therapy Interventions HEP: Calf raises with post tib bias, self STM with tennis ball, standing calf strentch, big toe disassication exercises. hanging calf raises PT Interventions: Intervention #1, Intervention #2 PT INTERVENTION 1: TE (34min) NuStep lvl 3-5 LE only w/u. Calf raises with post tib bias (b all between heels) Various SLS challenges on unsteady surfaces, pallof press, etc. to increa se foot intrinsics. Short foot exercises. Standing and seated calf/plantar surface stretchin g, PT INTERVENTION 2: MT (10min) IASTM and MFD to plantar fascia/aponeursis with active moveme nt and pt education. Assessment Progress Summary 01/01/20: Patient has been seen for 5 visits over the past 1.5 months focusing on addressing right an kle pain and strength deficits stemming from an old surgery. She has made mild and fair prog ress over the last few visits, limited in part due to increasing her recreational activities (including training for a 5K) and recent reinjury to her knee after falling. Given her slig ht set back due to increased activity, she still has not met her goals as established at ini tial evaluation. She would benefit form 4 additional visits at 1x/week to continue progressi on of strengthening and proprioceptive training. Currently patient has concerns over COVID-1 9 as well as being higher risk due to her extensive comorbidities. Given her risk status, we are going to place therapy on hold until likely mid-January 2020 at which point we will reasses s and resume as appropriate. Pt in agreement with plan. Initial evaluation 11/21/19: Patient is a 29 y/o female familiar to this clinic who presents with primary c/o increasing right medial ankle pain that started approximately 6 months ago and is also experiencing in creased swelling intermittently. She reports this is negatively impacting her ability to par ticipate in activities requiring prolonged walking or managing stairs. She reports a 30% sev erity of disability per LEFS and demonstrates tenderness to palpation along medial TC joint and scar from Kidner surgery. She demonstrates decreased posterior tib strength but is other bunn 5/5 grossly throughout. She will benefit from up to 6 visits of physical therapy to add ress pain and improve functional foot and ankle strength in order to reduce severity of disa bility. Progress will be impacted by secondary medical issues including right knee patellar pain, left ankle pain and dysfunction, and obesity. Rehabilitation potential: Patient demonstrates good potential to achieve established goals to address the documented impairments by participating in skilled physical therapy services. Goals: Patient Reported Outcome Goals Lower Extremity Functional Scale Goal: Patient will improve score on LEFS to >65 indicating decreased severity of disability Lower Extremity Functional Scale Goal Status: Mild improvement by 2 points OP PT Goals Goal 1: Patient will report no increse in right foot/ankle pain with ascending/descending s tairs at work in 12 weeks. Goal 1 Status: Patient reports mild pain, primarily with descending but still present with both directions. Also notes she is not doing stairs as much. Goal 2: Patient will be indep with home exercises program to manage symptoms in 12 weeks. Goal 2 Status: Improving, pt is able to progress. Plan Date of Onset: 05/21/2019 Start of Care Date: 11/21/2019 Requested # of Visits: 6 visits 1x/week for 12 weeks Certification From: 01/01/2020 Certification To: 03/25/2020 Treatment Plan/Interventions PT EvaluationPT Re-[id number] - Therapeutic [id number] - Neuromuscular Reeducation9 7116 - Gait Udtzspoa76709 - Therapeutic Fmcowtggqc12955 - Aquatic Therapy/[id number] - U wjulivbvy90531/G0283 - Electrical Stimulation, Zifftfdhap48657 - Electrical Stimulation, Att gdcwl96093 - TENS Application/Instruction Patient and/or family has indicated understanding of treatment needs and actively participa everardo in the creation of this plan for care. Electronically signed by: Julia Fisher PT, 01/02/2020 2:39 PM Patient Name: Andrea Suh/: 1990/ signed by DWAINE Hernandez at 01/03/2020 11:23 AM PDTdocumented in this encounter Plan of Treatment +--------+ + + + + | Date | Type | Specialty | Care Team | Description | +--------+ + + + + | 02/18/ | Appointment | Rehabilitation | Erika Ernst, | | 2019 | | | DO [address] | | | | | | [place] [address] | | | | | | [phone] | | | | | | | | | | | | Julia Fisher, | | | | | | PT | | +--------+ + + + + | 02/18/ | Appointment | Rehabilitation | Erika Ernst, | 2019 | | | DO [address] | | | | | | [place] [address] | | | | | | [phone] | | | | | | | | | | | | Genesis Ayon, SUSAN | | +--------+ + + + + | 02/25/ | Office | Primary Care | Erika Ernst, | | | 2019 | Visit | | DO [address] [place] [address] | | | | | | [place] [address] | | | | | | [phone] | | | | | | | [...] | | | | | [place] [address] | | | | | | [phone] | | | | | | | | +--------+ + + + + | 02/27/ | Appointment | Radiology | Dhara, | | | 2019 | | | [address] | | | | | | [address] [place], | | | | | | [place] [address] | | | | | | [phone] | | | | | | | [...] | | | | | [place] [address] | | | | | | [phone] | | | | | | | [...] [place] | | | | | | [address] | | | | | | [phone] | | | | | | | [...] | | | | | [place] [address] | | | | | | [phone] | | | | | | | | | | | | Azul Yeboah, | | | | | | MD [address] | | | | | | [place] | | | | | | [place] [address] | | | | | | [phone] | | | | | | | [...] | | | | | | [place] [address] | | | | | | [phone] | | | | | | | | +--------+ + + + + documented as of this encounter Visit Diagnoses + + | Diagnosis | + + | Sprain of deltoid ligament of right ankle, subsequent encounter - Primary | + + documented in this encounter"
--- OUTSIDE RECORDS SUMMARY | ~2020-02-18 | XMS | Encounter Summary ---
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 No visible white patches but patient has [...] | | | | | [place] [address] | | | | | | [phone] | | | | | | | | | | | | Julia Fisher, | | | | | | PT | | +--------+ + + + + | 02/18/ | Appointment | Rehabilitation | Erika Ernst, | | | 2019 | | | DO [address] | | | | | | [place] [address] | | | | | | [phone] | | | | | | | | | | | | Genesis Ayon OT | | +--------+ + + + + | 02/25/ | Office | Primary Care | Erika Ernst, | | | 2019 | Visit | | DO [facility] [address] | | | | | | [place] [address] | | | | | | [phone] | | | | | | | [...] [place] | | | | | | [place] [address] | | | | | | [phone] | | | | | | | | +--------+ + + + + | 02/27/ | Appointment | Radiology | Dhara, | | | 2019 | | | DWAINE Ross [address] | | | | | [address] [place], | | | | | | [place] [address] | | | | | | [phone] | | | | | | | [...] ST | | | | | | [place] [address] | | | | | | [phone] | | | | | | | [...] [place] | | | | | | [address] | | | | | | [phone] | | | | | | | [...] | | | | | [place] [address] | | | | | | [phone] | | | | | | | | | | | | Azul Yeboah, | | | | | | [address] | | | | | | [place] | | | | | | [place] [address] | | | | | | [phone] | | | | | | | [...] | | | | | | [place] [address] | | | | | | [phone] | | | | | | | [...]
--- OUTSIDE RECORDS SUMMARY | ~2020-02-18 | XMS | Encounter Summary ---
Demographics + + + | Address | [address] | | | [place] [address] | + + + | Home Phone [...] Team Providers + +------+ + | Care Ferry Terminal Agent Name | Role | Phone | + +------+ + PCP | Unavailable | + +------+ + Encounter Details +--------+ + + + + | Date | Type | Department | Care Team | Description | +--------+ + + + + | 09/12/ | [facility] | [place] | Amaya Varner NP | | | 2016 | Encounter | [facility] | [address] | | | | | [facility] [address] | [place], [place] | | | | | [address] [place], | [address] | | | | | [place] [address] | [phone] | | | | | [phone] | | | +--------+ + + + [...] | | 2020 | | | DO [facility] | | | | | | [place], [place] [address] | | | | | | [phone] | | | | | | | | | | | | Julia Fisher, | | | | | | PT | | +--------+ + + + + | 02/18/ | Appointment | Rehabilitation | Erika Ernst, | | | 2019 | | | DO [address] | | | | | | [place] [address] | | | | | | [phone] | | | | | | | | | | | | Genesis Ayon, SUSAN | | +--------+ + + + + | 02/25/ | Office | Primary Care | Erika Ernst, | | | 2019 | Visit | | DO [address] | | | | | | [place] [address] | | | | | | [phone] | | | | | | | [...] | | | | | [place] [address] | | | | | | [phone] | | | | | | | | +--------+ + + + + | 02/27/ | Appointment | Radiology | Dhara, | | | 2019 | | | [address] | | | | | | 4TH [facility] [place], | | | | | | [place] [address] | | | | | | [phone] | | | | | | | [...] | | | | | [place] [address] | | | | | | [phone] | | | | | | | [...] [place] | | | | | | [address] | | | | | | [phone] | | | | | | | [...] | | | | | [place] [address] | | | | | | [phone] | | | | | | | | | | | | Azul Yeboah, | | | | | | MD [address] | | | | | | [address] [place] | | | | | | [place] [address] | | | | | | [phone] | | | | | | | [...] | | | | | | [place] [address] | | | | | | [phone] | | | | | | | | +--------+ + + + + documented as of this encounter Visit Diagnoses Not on filedocumented in this encounter"
--- OUTSIDE RECORDS SUMMARY | ~2020-02-18 | XMS | Encounter Summary ---
Demographics + + + | Address | [address] | | | [place] [address] | + + + | Home Phone [...] Team Providers + +------+ + | Care Salt Washer Name | Role | Phone | + +------+ + | Erika Ernst DO | PCP | | + +------+ + Encounter Details +--------+ + + + + | Date | Type | Department | Care Team | Description | +--------+ + + + + | 06/17/ | Hospital | [facility] | Conversion | Diagnosis unknown | | 2018 | Encounter | CONVERSION [address]P [address] | Transaction, | | | | | [address] | Provider Unknown | | | | | [place], [place] | [phone] | | | | | [address] | (Fax) | | | | | [phone] | | | +--------+ + + + [...] | 03/19/20 | | | (VITAMIN D3) 78924 | mouth Once a week | tablet [...] | | | | | [place] [address] | | | | | | [phone] | | | | | | | | | | | | Julia Fisher, | | | | | | PT | | +--------+ + + + + | 02/18/ | Appointment | Rehabilitation | Erika Ernst, | | | 2019 | | | DO [address] | | | | | | [place] [address] | | | | | | [phone] | | | | | | | | | | | | Genesis Ayon OT | | +--------+ + + + + | 02/25/ | Office | Primary Care | Erika Ernst, | | | 2019 | Visit | | DO [address] | | | | | | [place] [address] | | | | | | [phone] | | | | | | | [...] | | | | | [place] [address] | | | | | | [phone] | | | | | | | | +--------+ + + + + | 02/27/ | Appointment | Radiology | Dhara, | | | 2019 | | | [address] | | | | | | 4TH [facility], | | | | | | [place] [address] | | | | | | [phone] | | | | | | | [...] [place] | | | | | | [place] [address] | | | | | | [phone] | | | | | | | [...] [place] | | | | | | [address] | | | | | | [phone] | | | | | | | [...] | | | | | [place] [address] | | | | | | [phone] | | | | | | | | | | | | Azul Yeboah, | | | | | | MD [address] | | | | | | [place] | | | | | | [place] [address] | | | | | | [phone] | | | | | | | [...] | | | | | [address] [place], | | | | | | [place] [address] | | | | | | [phone] | | | | | | | [...]
--- OUTSIDE RECORDS SUMMARY | ~2020-02-18 | XMS | Encounter Summary ---
Demographics + + + | Address | [address] | | | [place] [address] | + + + | Home Phone [...] Providers + +------+ + | Care Hair Spinning Machine Operator Name | Role | Phone [...] | MED[facility] [address] | [place] [address] | | | | | [address] [place], | [phone] | | | | | [place] [address] | | | | | | [phone] | | | +--------+ + + + [...] | | | | | [place] [address] | | | | | | [phone] | | | | | | | | | | | | Julia Fisher, | | | | | | PT | | +--------+ + + + + | 02/18/ | Appointment | Rehabilitation | Erika Ernst, | | | 2019 | | | DO [address] | | | | | | [place] [address] | | | | | | [phone] | | | | | | | | | | | | Genesis Ayon OT | | +--------+ + + + + | 02/25/ | Office | Primary Care | Erika Ernst, | | | 2019 | Visit | | DO [address] | | | | | | [place] [address] | | | | | | [phone] | | | | | | | [...] | | | | | [place] [address] | | | | | | [phone] | | | | | | | | +--------+ + + + + | 02/27/ | Appointment | Radiology | Dhara, | | | 2019 | | | [address] | | | | | | 4TH [facility], | | | | | | [place] [address] | | | | | | [phone] | | | | | | | | +--------+ + + + + | 03/04/ | Appointment | Rehabilitation | Genesis Ayon OT | | | 2019 | | | | | +--------+ + + + + | 03/09/ | Office | Orthopedic Surgery | Jeffrey Gandhi, | | | 2019 | Visit | | [address] | | | | | | [place] [address] | | | | | | [phone] | | | | | | | [...] [place] | | | | | | [address] | | | | | | [phone] | | | | | | | [...] | | | | | [place] [address] | | | | | | [phone] | | | | | | | | | | | | Azul Yeboah, | | | | | | MD [address] | | | | | | [place] | | | | | | [place] [address] | | | | | | [phone] | | | | | | | [...] | | | | | | [place] [address] | | | | | | [phone] | | | | | | | | +--------+ + + + + documented as of this encounter Visit Diagnoses Not on filedocumented in this encounter"
--- OUTSIDE RECORDS SUMMARY | ~2020-02-18 | XMS | Encounter Summary ---
Demographics + + + | Address | [address] | | | [place] [address] | + + + | Home Phone [...] Team Providers + +------+ + | Care Pug Mill Operator Helper Name | Role | Phone [...] | | | [address] [place], | [address] | | | | | [place] [address] | | | | | | [phone] | | | +--------+ + + + [...] | | | | | [place] [address] | | | | | | [phone] | | | | | | | | | | | | Julia Fisher, | | | | | | PT | | +--------+ + + + + | 02/18/ | Appointment | Rehabilitation | Erika Ernst, | | | 2019 | | | DO [address] | | | | | | [place] [address] | | | | | | [phone] | | | | | | | | | | | | Genesis Ayon OT | | +--------+ + + + + | 02/25/ | Office | Primary Care | Erika Ernst, | | | 2019 | Visit | | DO [address] | | | | | | [place] [address] | | | | | | [phone] | | | | | | | | +--------+ + + + + | 02/25/ | Appointment | Rehabilitation | Genesis Ayon OT | | | 2019 | | | | | +--------+ + + + + | 02/26/ | Virtual | Rehabilitation | Usah Rodriguez | | | 2019 | Office | | MD Precious [address] | | | | Visit | | [address] [place] | | | | | | [place] [address] | | | | | | [phone] | | | | | | | | +--------+ + + + + | 02/27/ | Appointment | Radiology | Dhara, | | | 2019 | | | [address] | | | | | | 4TH [facility], | | | | | | [place] [address] | | | | | | [phone] | | | | | | | [...] | | | | | [place] [address] | | | | | | [phone] | | | | | | | [...] [place] | | | | | | [address] | | | | | | [phone] | | | | | | | [...] | | | | | [place] [address] | | | | | | [phone] | | | | | | | | | | | | Azul Yeboah, | | | | | | MD [address] | | | | | | [place] | | | | | | [place] [address] | | | | | | [phone] | | | | | | | [...] | | | | | | [place] [address] | | | | | | [phone] | | | | | | | | +--------+ + + + + documented as of this encounter Visit Diagnoses Not on filedocumented in this encounter"
--- OUTSIDE RECORDS SUMMARY | ~2020-02-18 | XMS | Encounter Summary ---
Demographics + + + | Address | [address] | | | [place] [address] | + + + | Home Phone [...] Team Providers + +------+ + | Care Institutional Asset Manager Name | Role | Phone [...] deficiency | | 2019 | | [facility] | DO [address] | | | | | MEDICAL CLINIC [address] | [place] [address] | | | | | [address] [place], | [phone] | | | | | [place] [address] | | | | | | [phone] | | | +--------+ + + + [...] | | | | | [place] [address] | | | | | | [phone] | | | | | | | | | | | | Julia Fisher, | | | | | | PT | | +--------+ + + + + | 02/18/ | Appointment | Rehabilitation | Erika Ernst, | | | 2019 | | | DO [address] | | | | | | [place] [address] | | | | | | [phone] | | | | | | | | | | | | Genesis Ayon OT | | +--------+ + + + + | 02/25/ | Office | Primary Care | Erika Ernst, | | | 2019 | Visit | | DO [address] | | | | | | [place] [address] | | | | | | [phone] | | | | | | | [...] | | | | | [place] [address] | | | | | | [phone] | | | | | | | | +--------+ + + + + | 02/27/ | Appointment | Radiology | Dhara, | | | 2019 | | | [address] | | | | | | 4TH [facility], | | | | | | [place] [address] | | | | | | [phone] | | | | | | | [...] | | | | [place], [place] [address] | | | | | | [phone] | | | | | | | [...] [place] | | | | | | [address] | | | | | | [phone] | | | | | | | [...] | | | | | [place] [address] | | | | | | [phone] | | | | | | | | | | | | Azul Yeboah, | | | | | | MD [address] | | | | | | [place] [place] | | | | | | [place] [address] | | | | | | [phone] | | | | | | | [...] | | | | | | [place] [address] | | | | | | [phone] | | | | | | | | +--------+ + + + + documented as of this encounter Visit Diagnoses + + | Diagnosis | + + | Iron deficiency Other disorders of iron metabolism | + + documented in this encounter"
--- OUTSIDE RECORDS SUMMARY | ~2020-02-18 | XMS | Encounter Summary ---
Demographics + + + | Address | [address] | | | [place] [address] | + + + | Home Phone [...] Providers + +------+ + | Care Student Life Coordinator Name | Role | Phone | [...] Medication Refill | | 2019 | | [facility] | FORENSIC ANALYST [address] | | | | | [facility] [address] | [place] [address] | | | | | [address] [place], | [phone] | | | | | [place] [address] | | | | | | [phone] | | | +--------+--------+ + + + [...] | | | | | [place] [address] | | | | | | [phone] | | | | | | | | | | | | Julia Fisher, | | | | | | PT | | +--------+ + + + + | 02/18/ | Appointment | Rehabilitation | Erika Ernst, | | | 2019 | | | DO [address] | | | | | | [place] [address] | | | | | | [phone] | | | | | | | | | | | | Genesis Ayon OT | | +--------+ + + + + | 02/25/ | Office | Primary Care | Erika Ernst, | | | 2019 | Visit | | DO [address] | | | | | | [place] [address] | | | | | | [phone] | | | | | | | [...] | | Visit | | [address] | | | | | | [place] [address] | | | | | | [phone] | | | | | | | | +--------+ + + + + | 02/27/ | Appointment | Radiology | Dhara, | | | 2019 | | | [address] | | | | | | [address]TH [place], | | | | | | [place] [address] | | | | | | [phone] | | | | | | | [...] [place] | | | | | | [place] [address] | | | | | | [phone] | | | | | | | [...] [place] | | | | | | [address] | | | | | | [phone] | | | | | | | [...] | | | | | [place] [address] | | | | | | [phone] | | | | | | | | | | | | Azul Yeboah, | | | | | | MD [address] | | | | | | [place] | | | | | | [place] [address] | | | | | | [phone] | | | | | | | [...] | | | | | | [place] [address] | | | | | | [phone] | | | | | | | | +--------+ + + + + documented as of this encounter Visit Diagnoses Not on filedocumented in this encounter"
--- OUTSIDE RECORDS SUMMARY | ~2020-02-18 | XMS | Encounter Summary ---
Demographics + + + | Address | [address] | | | [place] [address] | + + + | Home Phone [...] Team Providers + +------+ + | Care Belt Builder Name | Role | Phone | [...] + + | Authorized | Specialty | Family | Diagnoses | Klever, | Michael, | | | Services | Medicine / | Patricia | Erika Salter DO | Usha Lang, | | | Required | Rehabilitatio | tunnel | [address] | [address] | | | | n | syndrome of | [place], | [address] | | | | | right wrist | [place] [address] | [place], | | | | | | Phone: | [place] [address] | | | | | | [phone] | Phone: | | | | | | Fax: | [phone] | | | | | | [phone] | Fax: | | | | | | | [phone] | + + + + + + + Encounter Details +--------+ + + + + | Date | Type | Department | Care Team | Description | +--------+ + + + + | 01/27/ | Orders Only | [place] [facility] | Erika Ernst, | Carpal tunnel | | 2020 | | [facility] | DO [address] | syndrome of right | | | | MEDICAL CLINIC [address] | [place] [address] | wrist (Primary Dx) | | | | [address] [place], | [phone] | | | | | [place] [address] | | | | | | [phone] | | | +--------+ + + + [...] | 2019 | | | DO [address] | | | | | | [place] [address] | | | | | | [phone] | | | | | | | | | | | | Julia Fisher, | | | | | | PT | | +--------+ + + + + | 02/18/ | Appointment | Rehabilitation | Erika Ernst, | | | 2019 | | | DO [address] | | | | | | [place] [address] | | | | | | [phone] | | | | | | | | | | | | Genesis Ayon OT | | +--------+ + + + + | 02/25/ | Office | Primary Care | Erika Ernst, | | | 2019 | Visit | | DO [address] | | | | | | [place] [address] | | | | | | [phone] | | | | | | | [...] | | | | | | [place] [address] | | | | | | [phone] | | | | | | | | +--------+ + + + + | 02/27/ | Appointment | Radiology | Dhara, | | | 2019 | | | [address] | | | | | | 4TH [facility], | | | | | | [place] [address] | | | | | | [phone] | | | | | | | [...] | | | | [place], [place] [address] | | | | | | [phone] | | | | | | | [...] [place] | | | | | | [address] | | | | | | [phone] | | | | | | | [...] | | | | | [place] [address] | | | | | | [phone] | | | | | | | | | | | | Azul Yeboah, | | | | | | MD [address] | | | | | | [address] [place] | | | | | | [place] [address] | | | | | | [phone] | | | | | | | [...] | | | | | | [place] [address] | | | | | | [phone] | | | | | | | | +--------+ + + + + + + +--------+ + + | Name | Type | Priori | Associated Diagnoses | Order Schedule | | | | ty | | | + + +--------+ + + | Ambulatory referral | Outpatient | Routin | Carpal tunnel | Ordered: 01/28/2020 | | to Occupational | Referral | e | syndrome of right | | | Medicine | | | wrist | | + + +--------+ + + documented as of this encounter Visit Diagnoses + + | Diagnosis | + + | Carpal tunnel syndrome of right wrist - Primary Carpal tunnel syndrome | + + documented in this encounter"
--- OUTSIDE RECORDS SUMMARY | ~2020-02-18 | XMS | Encounter Summary ---
Demographics + + + | Address | [address] | | | [place] [address] | + + + | Home Phone [...] Providers + +------+ + | Care Program Director Air Talent Name | Role | Phone | + +------+ + PCP | Unavailable | + +------+ + Encounter Details +--------+ + + + + | Date | Type | Department | Care Team | Description | +--------+ + + + + | 12/30/ | [facility] | Cody Go | | | 2016 | Encounter | [facility] [address] | [address] [place] | | | | | [address] [place] | [place] | | | | | [place] | [address] | | | | | [address] | [phone] | | | | | [phone] | | | +--------+ + + + [...] | | | | | [place] [address] | | | | | | [phone] | | | | | | | | | | | | Julia Fisher, | | | | | | PT | | +--------+ + + + + | 02/18/ | Appointment | Rehabilitation | Erika Ernst, | | | 2019 | | | DO [address] | | | | | | [place] [address] | | | | | | [phone] | | | | | | | | | | | | Genesis Ayon, SUSAN | | +--------+ + + + + | 02/25/ | Office | Primary Care | Erika Ernst, | | | 2019 | Visit | | DO [address] [place] [address] | | | | | | [place] [address] | | | | | | [phone] | | | | | | | [...] | | | | | [place] [address] | | | | | | [phone] | | | | | | | | +--------+ + + + + | 02/27/ | Appointment | Radiology | Dhara, | | | 2019 | | | [address] | | | | | | [address] [place], | | | | | | [place] [address] | | | | | | [phone] | | | | | | | [...] | | | | | [place] [address] | | | | | | [phone] | | | | | | | [...] [place] | | | | | | [address] | | | | | | [phone] | | | | | | | [...] | | | | | [place] [address] | | | | | | [phone] | | | | | | | | | | | | Azul Yeboah, | | | | | | MD [address] | | | | | | [address] [place] | | | | | | [place] [address] | | | | | | [phone] | | | | | | | [...] | | | | | | [place] [address] | | | | | | [phone] | | | | | | | [...] cardiopulmonary process. JOB #: | | | [id number] Digitally Released by: Anjelica Bedolla Read By: [...] | | | | | JOB #: [id number] | | Digitally Released by: Anjelica Bedolla | | | | | | Read By: ANJELICA BEDOLLA MD | | Date: 12/30/2016 09:59 | | | + + documented in this encounter Visit Diagnoses Not on filedocumented in this encounter"
--- OUTSIDE RECORDS SUMMARY | ~2020-02-18 | XMS | Encounter Summary ---
Demographics + + + | Address | [address] | | | [place] [address] | + + + | Home Phone [...] Team Providers + +------+ + | Care Quilt Stuffer Name | Role | Phone | + [...] | [place] | [place] [address] | | | | | [address] | [phone] | | | | | [phone] | | | +--------+ + + + [...] | | | | | [place] [address] | | | | | | [phone] | | | | | | | | | | | | Julia Fisher, | | | | | | PT | | +--------+ + + + + | 02/18/ | Appointment | Rehabilitation | Erika Ernst, | | | 2019 | | | DO [address] [place] | | | | | | [place] [address] | | | | | | [phone] | | | | | | | | | | | | Genesis Ayon, OT | | +--------+ + + + + | 02/25/ | Office | Primary Care | Erika Ernst, | | | 2019 | Visit | | DO [address] [place] | | | | | | [place] [address] | | | | | | [phone] | | | | | | | [...] | | | | | [place] [address] | | | | | | [phone] | | | | | | | | +--------+ + + + + | 02/27/ | Appointment | Radiology | Dhara, | | | 2019 | | | [address] | | | | | | 4TH [facility], | | | | | | [place] [address] | | | | | | [phone] | | | | | | | | +--------+ + + + + | 03/04/ | Appointment | Rehabilitation | Genesis Ayon OT | | | 2019 | | | | | +--------+ + + + + | 03/09/ | Office | Orthopedic Surgery | Jeffrey Gandhi, | | | 2019 | Visit | | [address] | | | | | | [place] [address] | | | | | | [phone] | | | | | | | [...] [place] | | | | | | [address] | | | | | | [phone] | | | | | | | [...] | | | | | [place] [address] | | | | | | [phone] | | | | | | | | | | | | Azul Yeboah, | | | | | | MD [address] | | | | | | [place] | | | | | | [place] [address] | | | | | | [phone] | | | | | | | [...] | | | | | | [place] [address] | | | | | | [phone] | | | | | | | | +--------+ + + + + documented as of this encounter Visit Diagnoses Not on filedocumented in this encounter"
--- OUTSIDE RECORDS SUMMARY | ~2020-02-18 | XMS | Encounter Summary ---
Demographics + + + | Address | [address] | | | [place] [address] | + + + | Home Phone [...] Team Providers + +------+ + | Care Irrigationist Designer Name | Role | Phone | + +------+ + PCP | Unavailable | + +------+ + Encounter Details +--------+ + + + + | Date | Type | Department | Care Team | Description | +--------+ + + + + | 12/28/ | [facility] | Heike Rodriguez, | | | 2013 | Encounter | [facility] | CHIEF HUMAN RESOURCES OFFICER [address] | | | | | CENTER [address] | [place] | | | | | [place] | [address] | | | | | [address] | | | | | | [phone] | | | +--------+ + + + [...] | | | | | [place] [address] | | | | | | [phone] | | | | | | | | | | | | Juila Fisher, | | | | | | PT | | +--------+ + + + + | 02/18/ | Appointment | Rehabilitation | Erika Ernst, | | | 2019 | | | DO [address] [place] | | | | | | [place] [address] | | | | | | [phone] | | | | | | | | | | | | Genesis Ayon, OT | | +--------+ + + + + | 02/25/ | Office | Primary Care | Erika Ernst, | | | 2019 | Visit | | DO [address] [place] | | | | | | [place] [address] | | | | | | [phone] | | | | | | | [...] | | | | | [place] [address] | | | | | | [phone] | | | | | | | | +--------+ + + + + | 02/27/ | Appointment | Radiology | Dhara, | | | 2019 | | | [address] | | | | | | 4TH [facility], | | | | | | [place] [address] | | | | | | [phone] | | | | | | | | +--------+ + + + + | 03/04/ | Appointment | Rehabilitation | Genesis Ayon OT | | | 2019 | | | | | +--------+ + + + + | 03/09/ | Office | Orthopedic Surgery | Jeffrey Gandhi, | | 2019 | Visit | | [address] | | | | | | [place] [address] | | | | | | [phone] | | | | | | | [...] [place] | | | | | | [address] | | | | | | [phone] | | | | | | | [...] | | | | | [place] [address] | | | | | | [phone] | | | | | | | | | | | | Azul Yeboah, | | | | | | MD [address] | | | | | | [place] | | | | | | [place] [address] | | | | | | [phone] | | | | | | | [...] | | | | | | [place] [address] | | | | | | [phone] | | | | | | | | +--------+ + + + + documented as of this encounter Visit Diagnoses Not on filedocumented in this encounter"
--- OUTSIDE RECORDS SUMMARY | ~2020-02-18 | XMS | Encounter Summary ---
Demographics + + + | Address | [address] | | | [place] [address] | + + + | Home Phone [...] Team Providers + +------+ + | Care Tennis Professional Name | Role | Phone | [...] | | | 2018 | Support | [facility] | DO [address] | | | | | [facility] [address] | [place] [address] | | | | | [address] [place], | [phone] | | | | | [place] [address] | | | | | | [phone] | | | +--------+ + + + [...] visit. States she wa s at the [facility] couple days ago for an affected area on her hip. Patient states it has gotten worse,and she thinks it is spreading and it is more painful to the touch and red. She was t old to return if symptoms occurs. I did not see any drainage, some redness noted around the area and warm. Patient advised to return to [facility] so it can be evaluated. Patient states she is on augmentin and was given bactrim also. Patient had another appt elsewhere and would re turn to [facility] when finished. shelleyc documented in this encounter Plan of Treatment +--------+ + + + + | Date | Type | Specialty | Care Team | Description | +--------+ + + + + | 02/18/ | Appointment | Rehabilitation | Erika Ersnt, | | | 2019 | | | DO [address] | | | | | | [place] [address] | | | | | | [phone] | | | | | | | | | | | | Julia Fisher, | | | | | | PT | | +--------+ + + + + | 02/18/ | Appointment | Rehabilitation | Erika Ernst, | | | 2019 | | | DO [address] | | | | | | [place] [address] | | | | | | [phone] | | | | | | | | | | | | [facility] OT | | +--------+ + + + + | 02/25/ | Office | Primary Care | Erika Ernst, | | | 2019 | Visit | | DO [address] | | | | | | [place] [address] | | | | | | [phone] | | | | | | | [...] | | | | | [place] [address] | | | | | | [phone] | | | | | | | | +--------+ + + + + | 02/27/ | Appointment | Radiology | Dhara | | | 2019 | | | DWAINE Ross [address] [place], | | | | | | [place] [address] | | | | | | [phone] | | | | | | | | +--------+ + + + + | 03/04/ | Appointment | Rehabilitation | Genesis Aoyn OT | | | 2019 | | | | | +--------+ + + + + | 03/09/ | Office | Orthopedic Surgery | Jeffrey Gandhi, | | | 2019 | Visit | | [address] | | | | | | [place] [address] | | | | | | [phone] | | | | | | | [...] [place] | | | | | | [address] | | | | | | [phone] | | | | | | | [...] | | | | | [place] [address] | | | | | | [phone] | | | | | | | | | | | | Azul Yeboah, | | | | | | MD [address] | | | | | | [place] | | | | | | [place] [address] | | | | | | [phone] | | | | | | | [...] | | | | | | [place] [address] | | | | | | [phone] | | | | | | | | +--------+ + + + + documented as of this encounter Visit Diagnoses Not on filedocumented in this encounter"
--- OUTSIDE RECORDS SUMMARY | ~2020-02-18 | XMS | Encounter Summary ---
Demographics + + + | Address | [address] | | | [place] [address] | + + + | Home Phone [...] Providers + +------+ + | Care Spring Tier Name | Role | Phone | + +------+ + PCP | Unavailable | + +------+ + Encounter Details +--------+ + + + + | Date | Type | Department | Care Team | Description | +--------+ + + + + | 01/29/ | [facility] | Spenser Roberts NP | | | 2014 | Encounter | [facility] | [address], | | | | | [facility] [address] | [place] [address] | | | | | [address] [facility], | [phone] | | | | | [place] [address] | | | | | | [phone] | | | +--------+ + + + [...] | | | | | [place] [address] | | | | | | [phone] | | | | | | | | | | | | Julia Fisher, | | | | | | PT | | +--------+ + + + + | 02/18/ | Appointment | Rehabilitation | Erika Ernst, | | | 2019 | | | DO [address] | | | | | | [place] [address] | | | | | | [phone] | | | | | | | | | | | | Genesis Ayon OT | | +--------+ + + + + | 02/25/ | Office | Primary Care | Erika Ernst, | | | 2019 | Visit | | DO [address] | | | | | | [place] [address] | | | | | | [phone] | | | | | | | [...] | | | | | [place] [address] | | | | | | [phone] | | | | | | | | +--------+ + + + + | 02/27/ | Appointment | Radiology | Dhara, | | | 2019 | | | [address] | | | | | | 4TH [facility], | | | | | | [place] [address] | | | | | | [phone] | | | | | | | | +--------+ + + + + | 03/04/ | Appointment | Rehabilitation | Genesis Ayon OT | | | 2019 | | | | | +--------+ + + + + | 03/09/ | Office | Orthopedic Surgery | Jeffrey Gandhi, | | 2019 | Visit | | [address] | | | | | | [place] [address] | | | | | | [phone] | | | | | | | [...] [place] | | | | | | [address] | | | | | | [phone] | | | | | | | [...] | | | | | [place] [address] | | | | | | [phone] | | | | | | | | | | | | Azul Yeboah, | | | | | | MD [address] | | | | | | [place] | | | | | | [place] [address] | | | | | | [phone] | | | | | | | [...] | | | | | | [place] [address] | | | | | | [phone] | | | | | | | | +--------+ + + + + documented as of this encounter Visit Diagnoses Not on filedocumented in this encounter"
--- OUTSIDE RECORDS SUMMARY | ~2020-02-18 | XMS | Encounter Summary ---
Demographics + + + | Address | [address] | | | [place] [address] | + + + | Home Phone [...] Organization | [facility] | | | and [...] Team Providers + +------+ + | Care Potato Chip Sacking Machine Operator Name | Role | Phone | + +------+ + | Erika Ernst DO | PCP | | + +------+ + Reason for Visit +--------+ + | Reason | Comments | +--------+ + | Other | advise on pain | +--------+ + Encounter Details +--------+ + + + + | Date | Type | Department | Care Team | Description | +--------+ + + + + | 01/30/ | Telephone | [place] [facility] | Emily Mittal DPM | Other (advise on | | 2019 | | [facility] | [address] [place] | pain) | | | | [address] | F [place], [place] | | | | | [place], [place] | [address] | | | | | [address] | | | | | | [phone] | | | +--------+ + + + [...] | | | | | [place], [place] [address] | | | | | | [phone] | | | | | | | | | | | | Julia Fisher, | | | | | | PT | | +--------+ + + + + | 02/18/ | Appointment | Rehabilitation | Erika Ernst, | | | 2019 | | | DO [address] | | | | | | [place] [address] | | | | | | [phone] | | | | | | | | | | | | Genesis Ayon OT | | +--------+ + + + + | 02/25/ | Office | Primary Care | Erika Ernst, | | | 2019 | Visit | | DO [address] | | | | | | [place] [address] | | | | | | [phone] | | | | | | | [...] | | | | | [place] [address] | | | | | | [phone] | | | | | | | | +--------+ + + + + | 02/27/ | Appointment | Radiology | Dhara, | | | 2019 | | | [address] | | | | | | 4[address] [facility], | | | | | | [place] [address] | | | | | | [phone] | | | | | | | | +--------+ + + + + | 03/04/ | Appointment | Rehabilitation | Genesis Ayon OT | | | 2019 | | | | | +--------+ + + + + | 03/09/ | Office | Orthopedic Surgery | Jeffrey Gandhi, | | | 2019 | Visit | | MD [address] [facility] | | | | | | [place] [address] | | | | | | [phone] | | | | | | | [...] [place] | | | | | | [address] | | | | | | [phone] | | | | | | | [...] | | | | | [place] [address] | | | | | | [phone] | | | | | | | | | | | | Azul Yeboah, | | | | | | MD [address] | | | | | | [place] | | | | | | [place] [address] | | | | | | [phone] | | | | | | | [...] | | | | | | [place] [address] | | | | | | [phone] | | | | | | | | +--------+ + + + + documented as of this encounter Visit Diagnoses Not on filedocumented in this encounter"
--- OUTSIDE RECORDS SUMMARY | ~2020-02-18 | XMS | Encounter Summary ---
Demographics + + + | Address | [address] | | | [place] [address] | + + + | Home Phone [...] Team Providers + +------+ + | Care Molder Wax Ball Name | Role | Phone | + +------+ + | Erika Ernst DO | PCP | | + +------+ + Reason for Visit + + + | Reason | Comments | + + + | Elevated Blood | | | Pressure | | + + + Encounter Details +--------+ + + + + | Date | Type | Department | Care Team | Description | +--------+ + + + + | 06/06/ | Telephone | [place] [facility] | Erika Ernst, | Elevated Blood | | 2019 | | [facility] | DO [address] | Pressure | | | | MEDICAL CLIN[facility] [address] | [place] [address] | | | | | [address] [place], | [phone] | | | | | [place] [address] | | | | | | [phone] | | | +--------+ + + + [...] | | | | | [place] [address] | | | | | | [phone] | | | | | | | | | | | | Julia Fisher, | | | | | | PT | | +--------+ + + + + | 02/18/ | Appointment | Rehabilitation | Erika Ernst, | | | 2019 | | | DO [address] [place] | | | | | | [place] [address] | | | | | | [phone] | | | | | | | | | | | | Genesis [facility] OT | | +--------+ + + + + | 02/25/ | Office | Primary Care | Erika Ernts, | | | 2019 | Visit | | DO [address] [place] | | | | | | [place] [address] | | | | | | [phone] | | | | | | | [...] | | | | | [place] [address] | | | | | | [phone] | | | | | | | | +--------+ + + + + | 02/27/ | Appointment | Radiology | Dhara, | | | 2019 | | | [address] | | | | | | [facility] | | | | | | [place] [address] | | | | | | [phone] | | | | | | | [...] [place] | | | | | | [place] [address] | | | | | | [phone] | | | | | | | [...] [place] | | | | | | [address] | | | | | | [phone] | | | | | | | [...] | | | | | [place] [address] | | | | | | [phone] | | | | | | | | | | | | Azul Yeboah, | | | | | | MD [address] | | | | | | [place] | | | | | | [place] [address] | | | | | | [phone] | | | | | | | [...] | | | | | | [place] [address] | | | | | | [phone] | | | | | | | | +--------+ + + + + documented as of this encounter Visit Diagnoses Not on filedocumented in this encounter"
--- OUTSIDE RECORDS SUMMARY | ~2020-02-18 | XMS | Encounter Summary ---
Demographics + + + | Address | [address] | | | [place] [address] | + + + | Home Phone [...] Team Providers + +------+ + | Care Transportation Planning Technician Name | Role | Phone | [...] | Specialty | Physical | Diagnoses | Klveer, | Cc Wgr | | | Services | Therapy / | Sprain of | Erika A, DO | Therapy Pt | | | Required | Rehabilitatio | calcaneofibu | [address] | [address] | | | | n | lar ligament | [place], | [place], | | | | | of left | [place] [address] | [place] [address] | | | | | ankle, | Phone: | Phone: | | | | | initial | [phone] | [phone] | | | | | encounter | Fax: | Fax: | | | | | Procedures | [phone] | [phone] | | | | | PT EVAL [...] [address] [place] | [place] [address] | encounter (Primary | | | | [place], [place] | [phone] | Dx) | | | | [address] | | | | | | [phone] | Nick Barrios I, PT | | [...] Ordering Physician: Erika Ernst DO Claim #: [id number] Date of Injury: 06/11/2018 Visits since the [...] Certification To: 11/02/2018 Treatment Plan/Interventions PT EvaluationPT Re-[id number] - Therapeutic Gyztobiz73280 - Neuromuscular Reeducation9 7116 - Gait Snmsvmso44996 - Therapeutic Lugvavdwzb94105 - Manual Rbopzht77407 - Self Care/Ho me Jwianmffks97214 - Group Therapeutic Udjjdkapmr13562 - Aquatic Therapy/Fmhqtswko42248 - Io ireykvbzaxp18063 - TENS Application/Uawcifucbft03105 - Electrical Stimulation, Xmpkahavje517 35 - Ultrasound Patient and/or family has [...] reports of muscle fatigue an d requiring DEPARTMENT MGR with grab bar in order to maintain [...] continuation of physical therapy services into [facility] period in order to [...] note might be different from the original. [facility] TH[facility] PT [address] [place] [address] Physical Therapy Daily Treatment Note Date: 08/14/2018 [...] and B genuvalgum during ambulation Level of Pickrell: independent Gait Deviations: stride width increased, other [...] with reports of muscle fatigue and requiring DEPARTMENT MGR with gra b bar in order to [...] in favor of SL heel raise with DEPARTMENT MGR. ONGOING: SLS on even surface 3x30 seconds [...] 2x1 minute each foot positi on with DEPARTMENT MGR as needed with grab bar, SBA // Rhomberg stance on bosu eyes open DEPARTMENT MGR as needed 2x1 minute // additional time [...] | | | | | [place] [address] | | | | | | [phone] | | | | | | | | | | | | Julia Fisher, | | | | | | PT | | +--------+ + + + + | 02/18/ | Appointment | Rehabilitation | Erika Ernst, | | | 2019 | | | DO [address] [place] | | | | | | [place] [address] | | | | | | [phone] | | | | | | | | | | | | Genesis Ayon OT | | +--------+ + + + + | 02/25/ | Office | Primary Care | Erika Ernst, | | | 2019 | Visit | | [address] [place] [address] | | | | | | [place] [address] | | | | | | [phone] | | | | | | | [...] | | | | | [place] [address] | | | | | | [phone] | | | | | | | | +--------+ + + + + | 02/27/ | Appointment | Radiology | Dhara, | | | 2019 | | | [address] | | | | | | [address] [place], | | | | | | [place] [address] | | | | | | [phone] | | | | | | | [...] ST | | | | | | [place] [address] | | | | | | [phone] | | | | | | | [...] [place] | | | | | | [address] | | | | | | [phone] | | | | | | | [...] | | | | | [place] [address] | | | | | | [phone] | | | | | | | | | | | | Azul Yeboah, | | | | | | [address] | | | | | | [place] | | | | | | [place] [address] | | | | | | [phone] | | | | | | | [...] | | | | | | [place] [address] | | | | | | [phone] | | | | | | | | +--------+ + + + + documented as of this encounter Visit Diagnoses + + | Diagnosis | + + | Sprain of left ankle, subsequent encounter - Primary | + + documented in this encounter
--- OUTSIDE RECORDS SUMMARY | ~2020-02-18 | XMS | Encounter Summary ---
Demographics + + + | Address | [address] | | | [place] [address] | + + + | Home Phone [...] Providers + +------+ + | Care Business Management Specialist Name | Role | Phone [...] | +--------+ + + + + | 03/22/ | Telephone | [place] [facility] | Erika Ernst, | Medication Question | | 2018 | | [facility] | DO [address] | | | | | MEDICAL CL[facility] [address] | [place] [address] | | | | | [address] [facility], | [phone] | | | | | [place] [address] | | | | | | [phone] | | | +--------+ + + + [...] | | | | | [place] [address] | | | | | | [phone] | | | | | | | | | | | | Julia Fisher, | | | | | | PT | | +--------+ + + + + | 02/18/ | Appointment | Rehabilitation | Erika Ernst, | | | 2019 | | | DO [address] | | | | | | [place] [address] | | | | | | [phone] | | | | | | | | | | | | [facility] Ayon OT | | +--------+ + + + + | 02/25/ | Office | Primary Care | Erika Ernst, | | | 2019 | Visit | | DO [address] | | | | | | [place] [address] | | | | | | [phone] | | | | | | | [...] | | | | | | [place] [address] | | | | | | [phone] | | | | | | | | +--------+ + + + + | 02/27/ | Appointment | Radiology | Dhara, | | | 2019 | | | [address] | | | | | | 4TH [facility], | | | | | | [place] [address] | | | | | | [phone] | | | | | | | [...] [place] | | | | | | [place] [address] | | | | | | [phone] | | | | | | | [...] [place] | | | | | | [address] | | | | | | [phone] | | | | | | | [...] | | | | | [place] [address] | | | | | | [phone] | | | | | | | | | | | | Azul Yeboah, | | | | | | MD [address] | | | | | | [place] | | | | | | [place] [address] | | | | | | [phone] | | | | | | | [...] | | | | | | [place] [address] | | | | | | [phone] | | | | | | | | +--------+ + + + + documented as of this encounter Visit Diagnoses Not on filedocumented in this encounter"
--- OUTSIDE RECORDS SUMMARY | ~2020-02-18 | XMS | Encounter Summary ---
Demographics + + + | Address | [address] | | | [place] [address] | + + + | Home Phone [...] Team Providers + +------+ + | Care Tanning Drum Operator Name | Role | Phone | [...] | | | of left | [place] [address] | [place] [address] | | | | | ankle, | Phone: | Phone: | | | | | initial | [phone] | [phone] | | | | | encounter | Fax: | Fax: | | | | | Procedures | [phone] | [phone] | | | | | PT EVAL [...] [address] [place] | [place] [address] | ligament of left | | | | [place], [place] | [phone] | ankle, initial | | | | [address] | | encounter | | | | [phone] | Nick Barrios I, PT | | [...] might be different hannah tan the original. [facility] THERAPY PT [address] [place] [address] Physical Therapy Daily Treatment Note Date: 07/17/2018 [...] Barrios PT, 07/17/2018 18:18 Patient Name: Andrea Henaonanci/: 1990/ documented in this en counter Plan of Treatment +--------+ + + + + | Date | Type | Specialty | Care Team | Description | +--------+ + + + + | 02/18/ | Appointment | Rehabilitation | Erika Ernst, | | | 2019 | | | DO [address] [place] | | | | | | [place] [address] | | | | | | [phone] | | | | | | | | | | | | Julia Fisher, | | | | | | PT | | +--------+ + + + + | 02/18/ | Appointment | Rehabilitation | Erika Ernst, | | | 2019 | | | DO [address] [place] | | | | | | [place] [address] | | | | | | [phone] | | | | | | | | | | | | Genesis Ayon OT | | +--------+ + + + + | 02/25/ | Office | Primary Care | Erika Ernst, | | | 2019 | Visit | | DO [address] [place] | | | | | | [place] [address] | | | | | | [phone] | | | | | | | [...] | | | | | [place] [address] | | | | | | [phone] | | | | | | | | +--------+ + + + + | 02/27/ | Appointment | Radiology | Dhara, | | | 2019 | | | [address] | | | | | | [facility]TH [facility], | | | | | | [place] [address] | | | | | | [phone] | | | | | | | [...] [place] | | | | | | [place] [address] | | | | | | [phone] | | | | | | | [...] [place] | | | | | | [address] | | | | | | [phone] | | | | | | | [...] | | | | | [place] [address] | | | | | | [phone] | | | | | | | | | | | | Azul Yeboah, | | | | | | MD [address] | | | | | | [place] | | | | | | [place] [address] | | | | | | [phone] | | | | | | | [...] | | | | | | [place] [address] | | | | | | [phone] | | | | | | | | +--------+ + + + + documented as of this encounter Visit Diagnoses + + | Diagnosis | + + | Sprain of calcaneofibular ligament of left ankle, initial encounter | + + documented in this encounter
--- OUTSIDE RECORDS SUMMARY | ~2020-02-18 | XMS | Encounter Summary ---
Demographics + + + | Address | [address] | | | [place] [address] | + + + | Home Phone [...] Providers + +------+ + | Care Administrative Tech Name | Role | Phone | [...] | [facility] [address] | [place] [address] | | | | | [address] [place], | [phone] | | | | | [place] [address] | | | | | | [phone] | | | +--------+ + + + [...] | 2019 | | | DO [address] | | | | | | [place], [place] [address] | | | | | | [phone] | | | | | | | | | | | | Julia Fisher, | | | | | | PT | | +--------+ + + + + | 02/18/ | Appointment | Rehabilitation | Erika Ernst, | | | 2019 | | | DO [address] [place] | | | | | | [place] [address] | | | | | | [phone] | | | | | | | | | | | | [facility]yon OT | | +--------+ + + + + | 02/25/ | Office | Primary Care | Erika Ernst, | | | 2019 | Visit | | DO [address] | | | | | | [place] [address] | | | | | | [phone] | | | | | | | [...] | | | | | [place] [address] | | | | | | [phone] | | | | | | | | +--------+ + + + + | 02/27/ | Appointment | Radiology | Dhara, | | | 2019 | | | [address] | | | | | | [address] [place], | | | | | | [place] [address] | | | | | | [phone] | | | | | | | [...] | | | | [place] [address] | | | | | | [phone] | | | | | | | [...] [place] | | | | | | [address] | | | | | | [phone] | | | | | | | [...] | | | | | [place] [address] | | | | | | [phone] | | | | | | | | | | | | Azul Yeboah, | | | | | | MD [address] | | | | | | [place] | | | | | | [place] [address] | | | | | | [phone] | | | | | | | [...] | | | | | | [place] [address] | | | | | | [phone] | | | | | | | | +--------+ + + + + documented as of this encounter Visit Diagnoses Not on filedocumented in this encounter"
--- OUTSIDE RECORDS SUMMARY | ~2020-02-18 | XMS | Encounter Summary ---
Demographics + + + | Address | [address] | | | [place] [address] | + + + | Home Phone [...] Team Providers + +------+ + | Care Piercer Name | Role | Phone | + +------+ + | Erika Ernst DO | PCP | | + +------+ + Encounter Details +--------+ + + + + | Date | Type | Department | Care Team | Description | +--------+ + + + + | 07/17/ | [facility] | [place] [facility] | Erika Ernst, | Acute right ankle | | 2019 | Encounter | HOSPITAL XRAY [address] | DO [address] | pain | | | [address] [place] | [place] [address] | | | | | [place], [place] | [phone] | | | | | [address] | | | | | | [phone] | | | +--------+ + + + [...] | 04/12/20 | | | (VITAMIN D3) [address]2296 | mouth Once a week | tablet [...] | | | | | [place] [address] | | | | | | [phone] | | | | | | | | | | | | Julia Fisher, | | | | | | PT | | +--------+ + + + + | 02/18/ | Appointment | Rehabilitation | Erika Ernst, | | | 2019 | | | DO [address] [place] | | | | | | [place] [address] | | | | | | [phone] | | | | | | | | | | | | [facility] OT | | +--------+ + + + + | 02/25/ | Office | Primary Care | Erika Ernst, | | | 2019 | Visit | | DO [address] [place] | | | | | | [place] [address] | | | | | | [phone] | | | | | | | [...] | | | | | [place] [address] | | | | | | [phone] | | | | | | | | +--------+ + + + + | 02/27/ | Appointment | Radiology | Dhara, | | | 2019 | | | [address] | | | | | | 4TH [facility], | | | | | | [place] [address] | | | | | | [phone] | | | | | | | | +--------+ + + + + | 03/04/ | Appointment | Rehabilitation | Genesis Ayon OT | | | 2019 | | | | | +--------+ + + + + | 03/09/ | Office | Orthopedic Surgery | Jeffrey Gandhi, | | | 2019 | Visit | | [address] | | | | | | [place] [address] | | | | | | [phone] | | | | | | | [...] [place] | | | | | | [address] | | | | | | [phone] | | | | | | | [...] | | | | | [place] [address] | | | | | | [phone] | | | | | | | | | | | | Azul Yeboah, | | | | | | [address] | | | | | | [place] | | | | | | [place] [address] | | | | | | [phone] | | | | | | | | +--------+ + + + + | 04/08/ | Appointment | Nutrition | Janel Webstre | | | 2019 | | | [place], [place] | | +--------+ + + + + | 05/21/ | Office | Neurology | Dhara, | | | 2020 | Visit | | Cody, BOILER FIREMAN [address] | | | [address] [place], | | | | | | [place] [address] | | | | | | [phone] | | | | | | | [...]
--- OUTSIDE RECORDS SUMMARY | ~2020-02-18 | XMS | Encounter Summary ---
Demographics + + + | Address | [address] | | | [place] [address] | + + + | Home Phone [...] Team Providers + +------+ + | Care Modeling Teacher Name | Role | Phone | + +------+ + PCP | Unavailable | + +------+ + Encounter Details +--------+ + + + + | Date | Type | Department | Care Team | Description | +--------+ + + + + | [facility] Jesus Cornejo | | | [facility] | Encounter | [facility] | MCKENZIE [address] | | | | | [facility] [address] | [address] | | | | | [address] [facility] [place], | [place], [place] | | | | | [place] [address] | [address] | | | | | [phone] | [phone] | | | | | | | [...] | | | | | [place] [address] | | | | | | [phone] | | | | | | | | | | | | Julia Fisher, | | | | | | PT | | +--------+ + + + + | 02/18/ | Appointment | Rehabilitation | Erika Ernst, | | | 2019 | | | DO [address] [place] | | | | | | [place] [address] | | | | | | [phone] | | | | | | | | | | | | Genesis Ayon, OT | | +--------+ + + + + | 02/25/ | Office | Primary Care | Erika Ernst, | | | 2019 | Visit | | DO [address] [place] [address] | | | | | | [place] [address] | | | | | | [phone] | | | | | | | [...] | | | | | [place] [address] | | | | | | [phone] | | | | | | | | +--------+ + + + + | 02/27/ | Appointment | Radiology | Dhara, | | | 2019 | | | [address] | | | | | | [address] [place], | | | | | | [place] [address] | | | | | | [phone] | | | | | | | [...] [place] | | | | | | [place] [address] | | | | | | [phone] | | | | | | | [...] [place] | | | | | | [address] | | | | | | [phone] | | | | | | | [...] | | | | | [place] [address] | | | | | | [phone] | | | | | | | | | | | | Azul Yeboah, | | | | | | MD [address] | | | | | | [place] | | | | | | [place] [address] | | | | | | [phone] | | | | | | | [...] | | | | | | [place] [address] | | | | | | [phone] | | | | | | | | +--------+ + + + + documented as of this encounter Visit Diagnoses Not on filedocumented in this encounter"
--- OUTSIDE RECORDS SUMMARY | ~2020-02-18 | XMS | Encounter Summary ---
Demographics + + + | Address | [address] | | | [place] [address] | + + + | Home Phone [...] | [address] [place] | [facility], | | | | | [place], [place] | [place] [address] | | | | | [address] | [phone] | | | | | [phone] | | | +--------+ + + + [...] | | | | | [place] [address] | | | | | | [phone] | | | | | | | | | | | | Julia Fisher, | | | | | | PT | | +--------+ + + + + | 02/18/ | Appointment | Rehabilitation | Erika Ernst, | | | 2019 | | | DO [address] | | | | | | [place] [address] | | | | | | [phone] | | | | | | | | | | | | Genesis Ayon, OT | | +--------+ + + + + | 02/25/ | Office | Primary Care | Erika Ernst, | | | 2019 | Visit | | DO [address] | | | | | | [place] [address] | | | | | | [phone] | | | | | | | [...] | | | | | [place] [address] | | | | | | [phone] | | | | | | | | +--------+ + + + + | 02/27/ | Appointment | Radiology | Dhara, | | | 2019 | | | [address] | | | | | | [facility], | | | | | | [place] [address] | | | | | | [phone] | | | | | | | | +--------+ + + + + | 03/04/ | Appointment | Rehabilitation | Genesis Ayon OT | | | 2019 | | | | | +--------+ + + + + | 03/09/ | Office | Orthopedic Surgery | Jeffrey Gandhi, | | 2019 | Visit | | [address] | | | | | | [place] [address] | | | | | | [phone] | | | | | | | [...] [place] | | | | | | [address] | | | | | | [phone] | | | | | | | [...] | | | | | [place] [address] | | | | | | [phone] | | | | | | | | | | | | Azul Yeboah, | | | | | | MD [address] | | | | | | [address] [place] | | | | | | [place] [address] | | | | | | [phone] | | | | | | | | +--------+ + + + + | 04/08/ | Appointment | Nutrition | Janel Webster | | | 2019 | | | [place], [place] | | +--------+ + + + + | 05/21/ | Office | Neurology | Dhara, | | | 2019 | Visit | | Cody, [employer] [address] | | | | | | [facility], | | | | | | [place] [address] | | | | | | [phone] | | | | | | | [...]
--- OUTSIDE RECORDS SUMMARY | ~2020-02-18 | XMS | Encounter Summary ---
Demographics + + + | Address | [address] | | | [place] [address] | + + + | Home Phone [...] Team Providers + +------+ + | Care Linen Supply Load Builder Name | Role | Phone | [...] + + + + | 11/06/ | Telephone | [facility] [facility] | KleverErika epps, | Other (FYI) | | 2020 | | [facility] | DO [address] | | | | | [facility] [address] | [place] [address] | | | | [address] [place], | [phone] | | | | | [place] [address] | | | | | | [phone] | | | +--------+ + + + [...] | | | | | [place] [address] | | | | | | [phone] | | | | | | | | | | | | Julia Fisher, | | | | | | PT | | +--------+ + + + + | 02/18/ | Appointment | Rehabilitation | Erika Ernst, | | | 2019 | | | DO [address] | | | | | | [place] [address] | | | | | | [phone] | | | | | | | | | | | | Genesis Ayon OT | | +--------+ + + + + | 02/25/ | Office | Primary Care | Erika Ernst, | | | 2019 | Visit | | DO [address] | | | | | | [place] [address] | | | | | | [phone] | | | | | | | [...] | | | | | | [place] [address] | | | | | | [phone] | | | | | | | | +--------+ + + + + | 02/27/ | Appointment | Radiology | Dhara, | | | 2019 | | | [address] | | | | | | 4TH [facility], | | | | | | [place] [address] | | | | | | [phone] | | | | | | | | +--------+ + + + + | 03/04/ | Appointment | Rehabilitation | Genesis Ayon OT | | | 2019 | | | | | +--------+ + + + + | 03/09/ | Office | Orthopedic Surgery | Jeffrey Gandhi, | | | 2019 | Visit | | [address] | | | | | | [place] [address] | | | | | | [phone] | | | | | | | [...] [place] | | | | | | [address] | | | | | | [phone] | | | | | | | [...] | | | | | [place] [address] | | | | | | [phone] | | | | | | | | | | | | Azul Yeboah, | | | | | | [address] | | | | | | [place] | | | | | | [place] [address] | | | | | | [phone] | | | | | | | [...] | | | | | | [place] [address] | | | | | | [phone] | | | | | | | | +--------+ + + + + documented as of this encounter Visit Diagnoses Not on filedocumented in this encounter"
--- OUTSIDE RECORDS SUMMARY | ~2020-02-18 | XMS | Encounter Summary ---
Demographics + + + | Address | [address] | | | [place] [address] | + + + | Home Phone [...] Providers + +------+ + | Care Certified Orthotist Name | Role | Phone | + +------+ + PCP | Unavailable | + +------+ + Encounter Details +--------+ + + + + | Date | Type | Department | Care Team | Description | +--------+ + + + + | 02/09/ | [facility] | Heike Rodriguez, | | | 2015 | Encounter | HOSPITAL EMERGENCY | ELECTRICAL PARTS RECONDITIONER [address] | | | | | CENTER [address] | [place] | | | | | [place] | [address] | | | | | [address] | | | | | | [phone] | | | +--------+ + + + [...] | | | | | [place] [address] | | | | | | [phone] | | | | | | | | | | | | Julia Fisher, | | | | | | PT | | +--------+ + + + + | 02/18/ | Appointment | Rehabilitation | Erika Ernst, | | | 2019 | | | DO [address] | | | | | | [place] [address] | | | | | | [phone] | | | | | | | | | | | | Genesis Ayon, OT | | +--------+ + + + + | 02/25/ | Office | Primary Care | Erika Ernst, | | | 2019 | Visit | | DO [address] | | | | | | [place] [address] | | | | | | [phone] | | | | | | | [...] | | | | | | [place] [address] | | | | | | [phone] | | | | | | | | +--------+ + + + + | 02/27/ | Appointment | Radiology | Dhara, | | | 2019 | | | [address] | | | | | | 4TH [facility], | | | | | | [place] [address] | | | | | | [phone] | | | | | | | | +--------+ + + + + | 03/04/ | Appointment | Rehabilitation | Genesis Ayon OT | | | 2019 | | | | | +--------+ + + + + | 03/09/ | Office | Orthopedic Surgery | Jeffrey Gandhi, | | 2019 | Visit | | [address] | | | | | | [place] [address] | | | | | | [phone] | | | | | | | [...] [place] | | | | | | [address] | | | | | | [phone] | | | | | | | [...] | | | | | [place] [address] | | | | | | [phone] | | | | | | | | | | | | Azul Yeboah, | | | | | | MD [address] | | | | | | [place] | | | | | | [place] [address] | | | | | | [phone] | | | | | | | | +--------+ + + + + | 04/08/ | Appointment | Nutrition | Janel Webster | | | 2019 | | | [place], [place] | | +--------+ + + + + | 05/21/ | Office | Neurology | Dhara, | | | 2019 | Visit | | Cody, ELECTRICAL PARTS RECONDITIONER [address] | | | | | | 4TH [facility], | | | | | | [place] [address] | | | | | | [phone] | | | | | | | [...] | | IMPRESSION:Left basilar pneumonia. Job #: [id number] Read By: DAYANA Boyd | | MD [...]
--- OUTSIDE RECORDS SUMMARY | ~2020-02-18 | XMS | Encounter Summary ---
Demographics + + + | Address | [address] | | | [place] [address] | + + + | Home Phone [...] Team Providers + +------+ + | Care Foreign Language Instructor Name | Role | Phone | [...] | | | | s (de | [place], [place] | [place] [address] | | | | | quervain) | [address] | Phone: | | | | | Pain in | Phone: | [phone] | | | | | right wrist | [phone] | Fax: | | | | | Procedures | Fax: | [phone] | | | | | OT TREAT | [phone] | | +--------+--------+ + + + + [...] | | [address] [place] | [place] [address] | (Primary Dx); Right | | | | [place], [place] | [phone] | wrist pain | | | | [address] | | | | | | [phone] | Nakia Koo OT | | +--------+ [...] Koo, OT - 11/09/2018 2:17 PM PST THERAPY OT [address] [place] [address] Occupational Therapy Daily Treatment Note Date: 11/08/2018 [...] wrist but continues to have right wrist, gold nib grinder and pinch weakness and significant pain (3 [...] in 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, and gold nib grinder and pinch weakness in the right hand [...] | | | | | [place] [address] | | | | | | [phone] | | | | | | | | | | | | Julia Fisher, | | | | | | PT | | +--------+ + + + + | 02/18/ | Appointment | Rehabilitation | Erika Ernst, | | | 2019 | | | DO [address] | | | | | | [place] [address] | | | | | | [phone] | | | | | | | | | | | | Genesis Ayon OT | | +--------+ + + + + | 02/25/ | Office | Primary Care | Erika Ernst, | | | 2019 | Visit | | DO [address] | | | | | | [place] [address] | | | | | | [phone] | | | | | | | [...] | | | | | [place] [address] | | | | | | [phone] | | | | | | | | +--------+ + + + + | 02/27/ | Appointment | Radiology | Dhara, | | | 2019 | | | [address] | | | | | | 4TH [facility], | | | | | | [place] [address] | | | | | | [phone] | | | | | | | | +--------+ + + + + | 03/04/ | Appointment | Rehabilitation | Genesis Ayon OT | | | 2019 | | | | | +--------+ + + + + | 03/09/ | Office | Orthopedic Surgery | Jeffrey Gadnhi, | | | 2019 | Visit | | [address] [facility] | | | | | | [place] [address] | | | | | | [phone] | | | | | | | [...] [place] | | | | | | [address] | | | | | | [phone] | | | | | | | [...] | | | | | [place] [address] | | | | | | [phone] | | | | | | | | | | | | Azul Yeboah, | | | | | | MD [address] | | | | | | [place] | | | | | | [place] [address] | | | | | | [phone] | | | | | | | [...] | | | | | | [place] [address] | | | | | | [phone] | | | | | | | | +--------+ + + + + documented as of this encounter Visit Diagnoses + + | Diagnosis | + + | Radial styloid tenosynovitis - Primary | + + | Right wrist pain Pain in joint, forearm | + + documented in this encounter
--- OUTSIDE RECORDS SUMMARY | ~2020-02-18 | XMS | Encounter Summary ---
Demographics + + + | Address | [address] | | | [place] [address] | + + + | Home Phone [...] Team Providers + +------+ + | Care Straightedge Machine Operator Helper Name | Role | [...] | | | of left | [place] [address] | [place] [address] | | | | | ankle, | Phone: | Phone: | | | | | initial | [phone] | [phone] | | | | | encounter | Fax: | Fax: | | | | | Procedures | [phone] | [phone] | | | | | PT TREAT | | | +--------+--------+ + + + + Encounter Details +--------+ + + + + | Date | Type | Department | Care Team | Description | +--------+ + + + + | 10/18/ | Hospital | [place] [facility] | Erika Ernst, | Sprain of left | | 2019 | Encounter | HOSPITAL THERAPY PT | DO [address] | ankle, subsequent | | | | [address] | [place] [address] | encounter (Primary | | | | [place], [place] | [phone] | Dx) | | | | [address] | | | | | | [phone] | Nick Barrios I, PT | | [...] Progress Notes Nick Barrios I, PT - 10/18/2018 5:02 PM PSTFormatting of this note might be different fro m the original. [facility] THERAPY PT [address] [place] [address] Physical Therapy Daily Treatment Note Date: 10/18/2018 Patient [...] Suh/: 1990/ Start Time: 1600 Stop time: 1647 Duration: 47 minutes Timed Treatment Codes: 47 minutes # of PT Visits to Date: 19 Visit Summary: S: I have been moving things for work all day and my pain has increased a li ttle bit. My L leg was sore after last session. I am planning to have an MRI taken of my L ankle to determine if there is any damage that is causing this pain since it isn't getting m uch better. A: Patient tolerated LE strengthening exercises, but continues to report increa sed pain with L ankle resisted inversion. Patient's pain symptoms have not significantly imp roved with physical therapy; patient has maximized her rehab potential and will be discharge d from PT at next visit with HEP for self-management of condition. Next Visit Information: D/C DAY; progress LE strength and balance as tolerated. Therapy Interventions HEP: ONGOING: Standing lunges 3x10 progressing to 15 each LE 3x/wk, SL heel raise on step 3x15 3x/wk, Tandem gait as tolerated 4x/day, supine bridges 3x10 progressing to 15 4x/wk / / Sidelying hip abduction 3x10 progressing to 15 4x/wk // Tandem stance 2x60 second holds ea ch foot position 1x/day // Using RTB in door jam rather than holding onto with hands. Discon tinue PF with theraband in favor of SL heel raise with JOINT CUTTER MACHINE. ONGOING: SLS on even surface 3x3 0 seconds 1x/day // Double leg heel raise 3x10 3x/wk // forward/lateral step ups on 8" step 3x10 3x/wk each // standing achilles stretch 3x30 seconds 1x/day. // 4 way ankle PRE yellow theraband 3x10 each direction 3x/wk. // Ankle inversion/eversion 3x10 progressing to 20 1x/ day // ankle ABC's 3x/day. // Ankle pumps 3x10 progressing to 20 repetitions 1x/day // ankle circles 3x10 progressing to 20 repetitions each direction 1x/day PT INTERVENTION 1: TE - (39 minutes) TM ambulation 12 minutes @ 1.1 mph, half lunges while holding grab bar for support 2x10 each LE foot position, Red TB ankle PRE dorsiflexion/danny rsion 1x10 each, Green TB 2x10 each L LE, Double heel raises 2x20, Forward step up + heel raise on 8" step 2x5 each LE, Leg press heel raises 1x10 50 lbs, 2x15 50 lbs, Leg press 1x 10 80 lbs, 2x10 120 lbs, additional time required for rest between exercises, patient requi red cueing to perform exercises correctly. PT INTERVENTION 2: NMR (8 minutes) SLS 2x30 seconds each LE, 1x1 minute L LE SBA use of gra b bar to maintain balance, additional time required for rest between exercises and cueing f or correct form of exercise Assessment Rehabilitation potential: Patient demonstrates fair potential to achieve established goals and fair potential to achieve prior status to address the documented impairments by particip ating in skilled physical therapy services. Goals: OP PT Goals Goal 1: Patient will [...] today Electronically signed by: Nick Barrios, PT, 10/18/2018 17:02 Patient Name: Andrea Henaonanci/: 1990/ documented in [...] | | | | | [place] [address] | | | | | | [phone] | | | | | | | | | | | | Julia Fisher, | | | | | | PT | | +--------+ + + + + | 02/18/ | Appointment | Rehabilitation | Erika Ernst, | | | 2019 | | | DO [address] | | | | | | [place] [address] | | | | | | [phone] | | | | | | | | | | | | Genesis Ayon OT | | +--------+ + + + + | 02/25/ | Office | Primary Care | Erika Ernst, | | | 2019 | Visit | | DO [address] | | | | | | [place] [address] | | | | | | [phone] | | | | | | | [...] | | | | | [place] [address] | | | | | | [phone] | | | | | | | | +--------+ + + + + | 02/27/ | Appointment | Radiology | Dhara, | | | 2019 | | | [address] | | | | | [address] [place], | | | | | | [place] [address] | | | | | | [phone] | | | | | | | | +--------+ + + + + | 03/04/ | Appointment | Rehabilitation | Genesis Ayon OT | | | 2019 | | | | | +--------+ + + + + | 03/09/ | Office | Orthopedic Surgery | Jeffrey Gandhi, | | | 2019 | Visit | | [place] [address] [facility] | | | | | | [place] [address] | | | | | | [phone] | | | | | | | [...] [place] | | | | | | [address] | | | | | | [phone] | | | | | | | [...] | | | | | [place] [address] | | | | | | [phone] | | | | | | | | | | | | Azul Yeboah, | | | | | | MD [address] | | | | | | [place] | | | | | | [place] [address] | | | | | | [phone] | | | | | | | [...] | | | | | | [place] [address] | | | | | | [phone] | | | | | | | | +--------+ + + + + documented as of this encounter Visit Diagnoses + + | Diagnosis | + + | Sprain of left ankle, subsequent encounter - Primary | + + documented in this encounter
--- OUTSIDE RECORDS SUMMARY | ~2020-02-18 | XMS | Encounter Summary ---
Demographics + + + | Address | [address] | | | [place] [address] | + + + | Home Phone [...] Providers + +------+ + | Care Die Storage Clerk Name | Role | Phone | + +------+ + PCP | Unavailable | + +------+ + Encounter Details +--------+ + + + + | Date | Type | Department | Care Team | Description | +--------+ + + + + | 06/14/ | [facility] | [facility] | Jenise Benitez, | | | 2016 | Encounter | [facility] | UNDERWRITING CLERK [address] | | | | | MEDICAL CLINIC [address] | [facility] [place] [address] | | | | | [address] [place], | [phone] | | | | | [place] [address] | | | | | | [phone] | | | +--------+ + + + [...] | | 2020 | | | DO [address] [place] [address] | | | | | | [place], [place] [address] | | | | | | [phone] | | | | | | | | | | | | Julia Fisher, | | | | | | PT | | +--------+ + + + + | 02/18/ | Appointment | Rehabilitation | Erika Ernst, | | | 2019 | | | DO [address] | | | | | | [place] [address] | | | | | | [phone] | | | | | | | | | | | | Genesis Ayon, SUSAN | | +--------+ + + + + | 02/25/ | Office | Primary Care | Erika Ernst, | | | 2019 | Visit | | DO [address] | | | | | | [place] [address] | | | | | | [phone] | | | | | | | [...] | | | | | [place] [address] | | | | | | [phone] | | | | | | | | +--------+ + + + + | 02/27/ | Appointment | Radiology | Dhara, | | | 2019 | | | [address] | | | | | | [address] [place], | | | | | | [place] [address] | | | | | | [phone] | | | | | | | [...] | | | | | [place] [address] | | | | | | [phone] | | | | | | | [...] [place] | | | | | | [address] | | | | | | [phone] | | | | | | | [...] | | | | | [place] [address] | | | | | | [phone] | | | | | | | | | | | | Azul Yeboah, | | | | | | MD [address] | | | | | | [place] | | | | | | [place] [address] | | | | | | [phone] | | | | | | | [...] | | | | | | [place] [address] | | | | | | [phone] | | | | | | | | +--------+ + + + + documented as of this encounter Visit Diagnoses Not on filedocumented in this encounter"
--- OUTSIDE RECORDS SUMMARY | ~2020-02-18 | XMS | Encounter Summary ---
Demographics + + + | Address | [address] | | | [place] [address] | + + + | Home Phone [...] Providers + +------+ + | Care Manager Post Name | Role | Phone | + +------+ + PCP | Unavailable | + +------+ + Encounter Details +--------+ + + + + | Date | Type | Department | Care Team | Description | +--------+ + + + + | 11/14/ | Hospital | [place] [facility] | Tyrese Kee | | | 2012 | Encounter | HOSPITAL EMERGENCY | MD Peter [address] | | | | | CENTER [address] | [address] | | | | | [address] [place], [place] | [place] [address] | | | | | [address] | [phone] | | | | | [phone] | | | +--------+ + + + [...] | | | | | [place] [address] | | | | | | [phone] | | | | | | | | | | | | Julia Fisher, | | | | | | PT | | +--------+ + + + + | 02/18/ | Appointment | Rehabilitation | Erika Ernst, | | | 2019 | | | DO [address] | | | | | | [place] [address] | | | | | | [phone] | | | | | | | | | | | | Genesis Ayon OT | | +--------+ + + + + | 02/25/ | Office | Primary Care | Erika Ernst, | | | 2019 | Visit | | DO [address] | | | | | | [place] [address] | | | | | | [phone] | | | | | | | [...] | | | | | [place] [address] | | | | | | [phone] | | | | | | | | +--------+ + + + + | 02/27/ | Appointment | Radiology | Dhara, | | | 2019 | | | [address] | | | | | | [address]TH [facility] [place], | | | | | | [place] [address] | | | | | | [phone] | | | | | | | [...] [place] | | | | | | [place] [address] | | | | | | [phone] | | | | | | | [...] [place] | | | | | | [address] | | | | | | [phone] | | | | | | | [...] | | | | | [place] [address] | | | | | | [phone] | | | | | | | | | | | | Azul Yeboah, | | | | | | MD [address] | | | | | | [place] | | | | | | [place] [address] | | | | | | [phone] | | | | | | | [...] | | | | | | [place] [address] | | | | | | [phone] | | | | | | | | +--------+ + + + + documented as of this encounter Visit Diagnoses Not on filedocumented in this encounter"
--- OUTSIDE RECORDS SUMMARY | ~2020-02-18 | XMS | Encounter Summary ---
Demographics + + + | Address | [address] | | | [place] [address] | + + + | Home Phone [...] Team Providers + +------+ + | Care Lobby Concierge Name | Role | Phone [...] [address] | [facility] [place] [address] | | | | | [address] [place], | [phone] | | | | | [place] [address] | | | | | | [phone] | | | +--------+ + + + [...] | | | | | [place] [address] | | | | | | [phone] | | | | | | | | | | | | Julia Fisher, | | | | | | PT | | +--------+ + + + + | 02/18/ | Appointment | Rehabilitation | Erika Ernst, | | | 2019 | | | DO [address] | | | | | | [place] [address] | | | | | | [phone] | | | | | | | | | | | | Genesis Ayon, OT | | +--------+ + + + + | 02/25/ | Office | Primary Care | Erika Ernst, | | | 2019 | Visit | | DO [address] | | | | | | [place] [address] | | | | | | [phone] | | | | | | | [...] | | | | | [place] [address] | | | | | | [phone] | | | | | | | | +--------+ + + + + | 02/27/ | Appointment | Radiology | Dhara, | | | 2019 | | | [address] | | | | | | 4TH [facility], | | | | | | [place] [address] | | | | | | [phone] | | | | | | | | +--------+ + + + + | 03/04/ | Appointment | Rehabilitation | Genesis Ayon OT | | | 2019 | | | | | +--------+ + + + + | 03/09/ | Office | Orthopedic Surgery | Jeffrey Gandhi, | | | 2019 | Visit | | [address] | | | | | | [place] [address] | | | | | | [phone] | | | | | | | [...] [place] | | | | | | [address] | | | | | | [phone] | | | | | | | [...] | | | | | [place] [address] | | | | | | [phone] | | | | | | | | | | | | Azul Yeboah, | | | | | | MD [address] | | | | | | [place] | | | | | | [place] [address] | | | | | | [phone] | | | | | | | [...] | | | | | | [place] [address] | | | | | | [phone] | | | | | | | | +--------+ + + + + documented as of this encounter Visit Diagnoses Not on filedocumented in this encounter"
--- OUTSIDE RECORDS SUMMARY | ~2020-02-18 | XMS | Encounter Summary ---
Demographics + + + | Address | [address] | | | [place] [address] | + + + | Home Phone [...] Team Providers + +------+ + | Care Lineworker Name | Role | Phone | + [...] | +--------+ + + + + | 10/15/ | Telephone | [facility] [facility] | Pravin Holliday | Referral (Follow up) | | 2019 | | HOSPITAL HEMATOLOGY | MD [address] | | | | | ONCOLOGY [address] | [address] | | | | | [address] [place], [place] | [place] | | | | | [address] | [address] | | | | | [phone] | [phone] | | | | | | | [...] | | | | | [place] [address] | | | | | | [phone] | | | | | | | | | | | | Julia Fisher, | | | | | | PT | | +--------+ + + + + | 02/18/ | Appointment | Rehabilitation | Erika Ernst, | | | 2019 | | | DO [address] | | | | | | [place] [address] | | | | | | [phone] | | | | | | | | | | | | Genesis Ayon, OT | | +--------+ + + + + | 02/25/ | Office | Primary Care | Erika Ernst, | | | 2019 | Visit | | DO [address] [place] | | | | | | [place] [address] | | | | | | [phone] | | | | | | | [...] | | | | | [place] [address] | | | | | | [phone] | | | | | | | | +--------+ + + + + | 02/27/ | Appointment | Radiology | Dhara, | | | 2019 | | | [address] | | | | | | [address]TH [facility], | | | | | | [place] [address] | | | | | | [phone] | | | | | | | | +--------+ + + + + | 03/04/ | Appointment | Rehabilitation | Genesis Ayon OT | | | 2019 | | | | | +--------+ + + + + | 03/09/ | Office | Orthopedic Surgery | Jeffrey Gandhi, | | | 2019 | Visit | | [address] | | | | | | [place] [address] | | | | | | [phone] | | | | | | | [...] [place] | | | | | | [address] | | | | | | [phone] | | | | | | | [...] | | | | | [place] [address] | | | | | | [phone] | | | | | | | | | | | | Azul Yeboah, | | | | | | MD [address] | | | | | | [place] | | | | | | [place] [address] | | | | | | [phone] | | | | | | | [...] | | | | | | [place] [address] | | | | | | [phone] | | | | | | | | +--------+ + + + + documented as of this encounter Visit Diagnoses Not on filedocumented in this encounter"
--- OUTSIDE RECORDS SUMMARY | ~2020-02-18 | XMS | Encounter Summary ---
Demographics + + + | Address | [address] | | | [place] [address] | + + + | Home Phone [...] Team Providers + +------+ + | Care B Operator Name | Role | Phone | [...] [address] | | | | | [place] [address] | | | | | | [phone] | | | +--------+ + + + [...] | | | | | [place] [address] | | | | | | [phone] | | | | | | | | | | | | Julia Fisher, | | | | | | PT | | +--------+ + + + + | 02/18/ | Appointment | Rehabilitation | Erika Ernst, | | | 2019 | | | DO [address] [place] | | | | | | [place] [address] | | | | | | [phone] | | | | | | | | | | | | eGnesis Ayon OT | | +--------+ + + + + | 02/25/ | Office | Primary Care | Erika Ernst, | | | 2019 | Visit | | DO [address] [place] | | | | | | [place] [address] | | | | | | [phone] | | | | | | | [...] | | | | | [place] [address] | | | | | | [phone] | | | | | | | | +--------+ + + + + | 02/27/ | Appointment | Radiology | Dhara, | | | 2019 | | | DWAINE [address] | | | | | | [address] [facility], | | | | | | [place] [address] | | | | | | [phone] | | | | | | | | +--------+ + + + + | 03/04/ | Appointment | Rehabilitation | Genesis Ayon OT | | | 2019 | | | | | +--------+ + + + + | 03/09/ | Office | Orthopedic Surgery | Jeffrey Gandhi, | | | 2019 | Visit | | [address] | | | | | | [place] [address] | | | | | | [phone] | | | | | | | [...] [place] | | | | | | [address] | | | | | | [phone] | | | | | | | [...] | | | | | [place] [address] | | | | | | [phone] | | | | | | | | | | | | Azul Yeboah, | | | | | | MD [address] | | | | | | [address] [place] | | | | | | [place] [address] | | | | | | [phone] | | | | | | | [...] | | | | | | [place] [address] | | | | | | [phone] | | | | | | | | +--------+ + + + + documented as of this encounter Visit Diagnoses Not on filedocumented in this encounter"
--- OUTSIDE RECORDS SUMMARY | ~2020-02-18 | XMS | Encounter Summary ---
Demographics + + + | Address | [address] | | | [place] [address] | + + + | Home Phone [...] Team Providers + +------+ + | Care Patternmaker Wood Name | Role | Phone | + [...] | [facility] | [place] [address] | | | | | [address] [place], | [phone] | | | | | [place] [address] | | | | | | [phone] | | | +--------+ + + + [...] | | | | | [place] [address] | | | | | | [phone] | | | | | | | | | | | | Julia Fisher, | | | | | | PT | | +--------+ + + + + | 02/18/ | Appointment | Rehabilitation | Erika Ernst, | | | 2019 | | | DO [address] | | | | | | [place] [address] | | | | | | [phone] | | | | | | | | | | | | [facility] | | +--------+ + + + + | 02/25/ | Office | Primary Care | Erika Ernst, | | | 2019 | Visit | | DO [address] | | | | | | [place] [address] | | | | | | [phone] | | | | | | | [...] | | | | | | [place] [address] | | | | | | [phone] | | | | | | | | +--------+ + + + + | 02/27/ | Appointment | Radiology | Dhara, | | | 2019 | | | [address] | | | | | | 4TH [facility], | | | | | | [place] [address] | | | | | | [phone] | | | | | | | | +--------+ + + + + | 03/04/ | Appointment | Rehabilitation | Genesis Ayon OT | | | 2019 | | | | | +--------+ + + + + | 03/09/ | Office | Orthopedic Surgery | Jeffrey Gandhi, | | | 2019 | Visit | | [address] | | | | | | [place] [address] | | | | | | [phone] | | | | | | | [...] [place] | | | | | | [address] | | | | | | [phone] | | | | | | | [...] | | | | | [place] [address] | | | | | | [phone] | | | | | | | | | | | | Azul Yeboah, | | | | | | [address] | | | | | | [place] | | | | | | [place] [address] | | | | | | [phone] | | | | | | | [...] | | | | | | [place] [address] | | | | | | [phone] | | | | | | | | +--------+ + + + + documented as of this encounter Visit Diagnoses Not on filedocumented in this encounter"
--- OUTSIDE RECORDS SUMMARY | ~2020-02-18 | XMS | Encounter Summary ---
Demographics + + + | Address | [address] | | | [place] [address] | + + + | Home Phone [...] Team Providers + +------+ + | Care Blending Tank Tender Helper Name | Role | Phone | [...] Refill | | 2019 | | [facility] | [address] | | | | | [facility] | [facility] [place] [address] | | | | | [address] [place], | [phone] | | | | | [place] [address] | | | | | | [phone] | | | +--------+ + + + [...] | | | | | [place] [address] | | | | | | [phone] | | | | | | | | | | | | Julia Fisher, | | | | | | PT | | +--------+ + + + + | 02/18/ | Appointment | Rehabilitation | Erika Ernst, | | | 2019 | | | DO [address] | | | | | | [place] [address] | | | | | | [phone] | | | | | | | | | | | | [facility] | | +--------+ + + + + | 02/25/ | Office | Primary Care | Erika Ernst, | | | 2019 | Visit | | DO [address] | | | | | | [place] [address] | | | | | | [phone] | | | | | | | [...] | | | | | [place] [address] | | | | | | [phone] | | | | | | | | +--------+ + + + + | 02/27/ | Appointment | Radiology | Dhara, | | | 2019 | | | [address] | | | | | | [address] [place], | | | | | | [place] [address] | | | | | | [phone] | | | | | | | [...] | | | | | | [place] [address] | | | | | | [phone] | | | | | | | [...] [place] | | | | | | [address] | | | | | | [phone] | | | | | | | [...] | | | | | [place] [address] | | | | | | [phone] | | | | | | | | | | | | Azul Yeboah, | | | | | | MD [address] | | | | | | [place] | | | | | | [place] [address] | | | | | | [phone] | | | | | | | [...] | | | | | | [place] [address] | | | | | | [phone] | | | | | | | | +--------+ + + + + documented as of this encounter Visit Diagnoses Not on filedocumented in this encounter"
--- OUTSIDE RECORDS SUMMARY | ~2020-02-18 | XMS | Encounter Summary ---
Demographics + + + | Address | [address] | | | [place] [address] | + + + | Home Phone [...] Providers + +------+ + | Care Interventional Cardiologist Name | Role | Phone | + [...] | [facility] | [place] [address] | | | | | [address] [place], | [phone] | | | | | [place] [address] | | | | | | [phone] | | | +--------+ + + + [...] [address] | | | | | | [phone] | | | | | | | | | | | | Julia Fisher, | | | | | | PT | | +--------+ + + + + | 02/18/ | Appointment | Rehabilitation | Erika Ernst, | | | 2019 | | | DO [address] | | | | | | [place] [address] | | | | | | [phone] | | | | | | | | | | | | [facility] | | +--------+ + + + + | 02/25/ | Office | Primary Care | Erika Ernst, | | | 2019 | Visit | | DO [address] | | | | | | [place] [address] | | | | | | [phone] | | | | | | | [...] | | | | | [place] [address] | | | | | | [phone] | | | | | | | | +--------+ + + + + | 02/27/ | Appointment | Radiology | Dhara, | | | 2019 | | | [address] | | | | | | [facility] | | | | | | [place] [address] | | | | | | [phone] | | | | | | | [...] [place] | | | | | | [place] [address] | | | | | | [phone] | | | | | | | [...] [place] | | | | | | [address] | | | | | | [phone] | | | | | | | [...] | | | | | [place] [address] | | | | | | [phone] | | | | | | | | | | | | Azul Yeboah, | | | | | | MD [address] | | | | | | [place] | | | | | | [place] [address] | | | | | | [phone] | | | | | | | [...] | | | | | | [place] [address] | | | | | | [phone] | | | | | | | | +--------+ + + + + documented as of this encounter Visit Diagnoses Not on filedocumented in this encounter"
--- OUTSIDE RECORDS SUMMARY | ~2020-02-18 | XMS | Encounter Summary ---
Demographics + + + | Address | [address] | | | [place] [address] | + + + | Home Phone [...] Providers + +------+ + | Care Telegraph Editor Name | Role | Phone | + +------+ + PCP | Unavailable | + +------+ + Encounter Details +--------+ + + + + | Date | Type | Department | Care Team | Description | +--------+ + + + + | 10/11/ | [facility] | Spenser Roberts NP | | | 2014 | Encounter | [facility] | [address], | | | | | [facility] [address] | [place] [address] | | | | | 4TH [facility], | [phone] | | | | | [place] [address] | | | | | | [phone] | | | +--------+ + + + [...] | | | | | [place] [address] | | | | | | [phone] | | | | | | | | | | | | Julia Fisher, | | | | | | PT | | +--------+ + + + + | 02/18/ | Appointment | Rehabilitation | Erika Ernst, | | | 2019 | | | DO [address] | | | | | | [place] [address] | | | | | | [phone] | | | | | | | | | | | | [facility] | | +--------+ + + + + | 02/25/ | Office | Primary Care | Erika Ernst, | | | 2019 | Visit | | DO [address] | | | | | | [place] [address] | | | | | | [phone] | | | | | | | [...] | | | | | [place] [address] | | | | | | [phone] | | | | | | | | +--------+ + + + + | 02/27/ | Appointment | Radiology | Dhara, | | | 2019 | | | [address] | | | | | | 4TH [facility], | | | | | | [place] [address] | | | | | | [phone] | | | | | | | | +--------+ + + + + | 03/04/ | Appointment | Rehabilitation | Genesis Ayon OT | | | 2019 | | | | | +--------+ + + + + | 03/09/ | Office | Orthopedic Surgery | Jeffrey Gandhi, | | 2019 | Visit | | [address] | | | | | | [place] [address] | | | | | | [phone] | | | | | | | [...] [place] | | | | | | [address] | | | | | | [phone] | | | | | | | [...] | | | | | [place] [address] | | | | | | [phone] | | | | | | | | | | | | Azul Yeboah, | | | | | | MD [address] | | | | | | [place] | | | | | | [place] [address] | | | | | | [phone] | | | | | | | [...] | | | | | | [place] [address] | | | | | | [phone] | | | | | | | | +--------+ + + + + documented as of this encounter Visit Diagnoses Not on filedocumented in this encounter"
--- OUTSIDE RECORDS SUMMARY | ~2020-02-18 | XMS | Encounter Summary ---
Demographics + + + | Address | [address] | | | [place] [address] | + + + | Home Phone [...] Providers + +------+ + | Care Toll Collector Name | Role | Phone | + +------+ + PCP | Unavailable | + +------+ + Encounter Details +--------+ + + + + | Date | Type | Department | Care Team | Description | +--------+ + + + + | 06/02/ | Hospital | [place] [facility] | Amaya Varner NP | | | 2016 | Encounter | [facility] | [address] | | | | | [place] | [place] | | | | | [place] | [address] | | | | | [address] | [phone] | | | | | [phone] | | | +--------+ + + + [...] | | 2019 | | | DO [address] [place] [address] | | | | | | [place] [address] | | | | | | [phone] | | | | | | | [...] [address] | | | | | | [phone] | | | | | | | | | | | | Genesis Ayon, SUSAN | | +--------+ + + + + | 02/25/ | Office | Primary Care | Erika Ernst, | | | 2019 | Visit | | DO [address] | | | | | | [place] [address] | | | | | | [phone] | | | | | | | [...] | | | | | [place] [address] | | | | | | [phone] | | | | | | | | +--------+ + + + + | 02/27/ | Appointment | Radiology | Dhara, | | | 2019 | | | [address] | | | | | | [address] [place], | | | | | | [place] [address] | | | | | | [phone] | | | | | | | [...] | | | | | [place] [address] | | | | | | [phone] | | | | | | | [...] [place] | | | | | | [address] | | | | | | [phone] | | | | | | | [...] | | | | | [place] [address] | | | | | | [phone] | | | | | | | | | | | | Azul Yeboah, | | | | | | MD [address] | | | | | | [place] | | | | | | [place] [address] | | | | | | [phone] | | | | | | | [...] | | | | | | [place] [address] | | | | | | [phone] | | | | | | | | +--------+ + + + + documented as of this encounter Procedures + +--------+ + + + | Procedure Name | Priori | Date/Time | Associated Diagnosis | Comments | | | ty | | | | + +--------+ + + + | XR THORACIC SPINE 3 | Routin | 06/02/2016 | | Results for this | | VW | e | 10:30 AM | | procedure are in the | | | | PDT | | results section. | + +--------+ + + + documented in this encounter Results XR Thoracic Spine 3 Vw (06/02/2016 10:30 AM PDT) + + | Specimen | + + | | + + + + + | Narrative | Performed At | + + + | ORIGINAL THREE VIEWS THORACIC SPINE: HISTORY: | | | Back pain. FINDINGS: The rib-bearing thoracic vertebral bodies | | | are normally aligned. There is a mild biphasic thoracic scoliosis. | | | No vertebral body anomaly is identified. Disk heights are | | | preserved. No rib fracture. IMPRESSION: Mild biphasic thoracic | | | scoliosis. JOB #: [id number] Read By: DAYANA | | | Oliver COON MD Released By: DAYANA COON MD Date: | | | 06/02/2016 18:28 | | + + + + + | Procedure Note | + + | Mitchel, Rad Results In - 08/09/2017 11:24 PM PST ORIGINAL THREE VIEWS THORACIC | | SPINE: HISTORY:Back pain. FINDINGS:The rib-bearing thoracic vertebral bodies are | | normally aligned. There is a mild biphasic thoracic scoliosis. No vertebral body | | anomaly is identified. Disk heights are preserved. No rib fracture. IMPRESSION:Mild | | biphasic thoracic scoliosis. JOB #: [id number] Read By: DAYANA COON, | | Released By: DAYANA COON, MDDate: 06/02/2016 18:28 | | | |HISTORY: | |Back pain. | | | |FINDINGS: | |The rib-bearing thoracic vertebral bodies are normally aligned. There is a mild biphasic t horacic scoliosis. No vertebral body anomaly is identified. Disk heights are preserved. N o rib fracture. | | | |IMPRESSION: | |Mild biphasic thoracic scoliosis. | | | | | |JOB #: [id number] | | | |Read By: DAYANA COON MD | | | |Released By: DAYANA COON MD | |Date: 06/02/2016 18:28 | | | | | + + documented in this encounter Visit Diagnoses Not on filedocumented in this encounter"
--- OUTSIDE RECORDS SUMMARY | ~2020-02-18 | XMS | Encounter Summary ---
Demographics + + + | Address | [address] | | | [place] [address] | + + + | Home Phone [...] Team Providers + +------+ + | Care Lumber Tailer Name | Role | Phone | [...] 09/18/ | Telephone | [place] [facility] | Denise Mcgregor | Medication | | 2018 | | [facility] | Donte, ELECTRICAL CONTROLS ENGINEER | Management | | | | [facility] [address] | | | | | | [facility] | | | | | | [place] [address] | | | | | | [phone] | | | +--------+ + + + [...] | 2019 | | | DO [address] [place] | | | | | | [place] [address] | | | | | | [phone] | | | | | | | [...] [address] | | | | | | [phone] | | | | | | | | | | | | [facility] | | +--------+ + + + + | 02/25/ | Office | Primary Care | Erika Ernst, | | | 2019 | Visit | | DO [address] | | | | | | [place] [address] | | | | | | [phone] | | | | | | | [...] | | | | | [place] [address] | | | | | | [phone] | | | | | | | | +--------+ + + + + | 02/27/ | Appointment | Radiology | Dhara, | | | 2019 | | | [address] | | | | | | [address] [place], | | | | | | [place] [address] | | | | | | [phone] | | | | | | | [...] [place] | | | | | | [place] [address] | | | | | | [phone] | | | | | | | [...] [place] | | | | | | [address] | | | | | | [phone] | | | | | | | [...] | | | | | [place] [address] | | | | | | [phone] | | | | | | | | | | | | Azul Yeboah, | | | | | | [address] | | | | | | [place] | | | | | | [place] [address] | | | | | | [phone] | | | | | | | [...] | | | | | | [place] [address] | | | | | | [phone] | | | | | | | | +--------+ + + + + documented as of this encounter Visit Diagnoses + + | Diagnosis | + + | Hypertension, unspecified type - Primary | + + documented in this encounter"
--- OUTSIDE RECORDS SUMMARY | ~2020-02-18 | XMS | Encounter Summary ---
Demographics + + + | Address | [address] | | | [place] [address] | + + + | Home Phone [...] Providers + +------+ + | Care Coffee Shop Aide Name | Role | Phone | + +------+ + | Erika Ernst DO | PCP | | + +------+ + Encounter Details +--------+ + + + + | Date | Type | Department | Care Team | Description | +--------+ + + + + | 12/24/ | Orders Only | [place] [facility] | Erika Ernst, | | | 2019 | | [facility] | DO [address] [place] | | | | | [facility] [address] | [place] [address] | | | | | [address] [place], | [phone] | | | | | [place] [address] | | | | | | [phone] | | | +--------+ + + + [...] | 2019 | | | DO [address] [place] | | | | | | [place], [place] [address] | | | | | | [phone] | | | | | | | | | | | | Julia Fisher, | | | | | | PT | | +--------+ + + + + | 02/18/ | Appointment | Rehabilitation | Erika Ernst, | | | 2019 | | | DO [address] | | | | | | [place] [address] | | | | | | [phone] | | | | | | | | | | | | [facility] | | +--------+ + + + + | 02/25/ | Office | Primary Care | Erika Ernst, | | | 2019 | Visit | | DO [address] | | | | | | [place] [address] | | | | | | [phone] | | | | | | | [...] | | | | | | [place] [address] | | | | | | [phone] | | | | | | | | +--------+ + + + + | 02/27/ | Appointment | Radiology | Dhara, | | | 2019 | | | [address] | | | | | | [address] [place], | | | | | | [place] [address] | | | | | | [phone] | | | | | | | [...] | | | | | [place] [address] | | | | | | [phone] | | | | | | | [...] [place] | | | | | | [address] | | | | | | [phone] | | | | | | | [...] | | | | | [place] [address] | | | | | | [phone] | | | | | | | | | | | | Azul Yeboah, | | | | | | MD [address] | | | | | | [place] | | | | | | [place] [address] | | | | | | [phone] | | | | | | | [...] | | | | | | [place] [address] | | | | | | [phone] | | | | | | | | +--------+ + + + + documented as of this encounter Visit Diagnoses Not on filedocumented in this encounter"
--- OUTSIDE RECORDS SUMMARY | ~2020-02-18 | XMS | Encounter Summary ---
Demographics + + + | Address | [address] | | | [place] [address] | + + + | Home Phone [...] Team Providers + +------+ + | Care Muck Boss Name | Role | Phone | + +------+ + | Erika Ernst DO | PCP | | + +------+ + Encounter Details +--------+ + + + + | Date | Type | Department | Care Team | Description | +--------+ + + + + | 05/02/ | [facility] | [place] [facility] | Erika Ernst, | Acute right ankle | | 2019 | Encounter | [facility] XRAY [facility] | DO [address] | pain | | | | [address] | [place] [address] | | | | | [place], [place] | [phone] | | | | | [address] | | | | | | [phone] | | | +--------+ + + + [...] | 04/12/20 | | | (VITAMIN D3) 19932 | mouth Once a week | tablet [...] | | | | | [place] [address] | | | | | | [phone] | | | | | | | | | | | | Julia Fisher, | | | | | | PT | | +--------+ + + + + | 02/18/ | Appointment | Rehabilitation | Erika Ernst, | | | 2019 | | | DO [address] | | | | | | [place] [address] | | | | | | [phone] | | | | | | | | | | | | [facility] OT | | +--------+ + + + + | 02/25/ | Office | Primary Care | Erika Ernst, | | | 2019 | Visit | | DO [address] | | | | | | [place] [address] | | | | | | [phone] | | | | | | | [...] | | | | | [place] [address] | | | | | | [phone] | | | | | | | | +--------+ + + + + | 02/27/ | Appointment | Radiology | Dhara, | | | 2019 | | | [address] | | | | | | [address] [place], | | | | | | [place] [address] | | | | | | [phone] | | | | | | | | +--------+ + + + + | 03/04/ | Appointment | Rehabilitation | Genesis Ayon OT | | | 2019 | | | | | +--------+ + + + + | 03/09/ | Office | Orthopedic Surgery | Jeffrey Gandhi, | | 2019 | Visit | | [address] [facility] | | | | | | [place] [address] | | | | | | [phone] | | | | | | | [...] [place] | | | | | | [address] | | | | | | [phone] | | | | | | | [...] | | | | | [place] [address] | | | | | | [phone] | | | | | | | | | | | | Azul Yeboah, | | | | | | [address] | | | | | | [place] | | | | | | [place] [address] | | | | | | [phone] | | | | | | | [...] | | | | | | [place] [address] | | | | | | [phone] | | | | | | | [...]
--- OUTSIDE RECORDS SUMMARY | ~2020-02-18 | XMS | Encounter Summary ---
Demographics + + + | Address | [address] | | | [place] [address] | + + + | Home Phone [...] Providers + +------+ + | Care Burr Bench Hand Name | Role | Phone | + +------+ + | Erkia Ernst DO | PCP | | + [...] Results | | 2018 | | [facility] | [employer] | | | | | MEDICAL [facility] [address] | | | | | | [facility] [place], | | | | | | [place] [address] | | | | | | [phone] | | | +--------+ + + + [...] | | 2020 | | | DO [address] [place] [address] | | | | | | [place] [address] | | | | | | [phone] | | | | | | | | | | | | Julia Fisher, | | | | | | PT | | +--------+ + + + + | 02/18/ | Appointment | Rehabilitation | Erika Ernst, | | | 2019 | | | DO [address] | | | | | | [place] [address] | | | | | | [phone] | | | | | | | | | | | | Genesis Ayon, SUSAN | | +--------+ + + + + | 02/25/ | Office | Primary Care | Erika Ernst, | | | 2019 | Visit | | DO [address] [place] | | | | | | [place] [address] | | | | | | [phone] | | | | | | | [...] | | | | | [place] [address] | | | | | | [phone] | | | | | | | | +--------+ + + + + | 02/27/ | Appointment | Radiology | Dhara, | | | 2019 | | | [address] | | | | | | [address] [place], | | | | | | [place] [address] | | | | | | [phone] | | | | | | | [...] | | | | | [place] [address] | | | | | | [phone] | | | | | | | [...] [place] | | | | | | [address] | | | | | | [phone] | | | | | | | [...] | | | | | [place] [address] | | | | | | [phone] | | | | | | | | | | | | Azul Yeboah, | | | | | | MD [address] | | | | | | [place] | | | | | | [place] [address] | | | | | | [phone] | | | | | | | [...] | | | | | | [place] [address] | | | | | | [phone] | | | | | | | | +--------+ + + + + documented as of this encounter Visit Diagnoses Not on filedocumented in this encounter"
--- OUTSIDE RECORDS SUMMARY | ~2020-02-18 | XMS | Encounter Summary ---
Demographics + + + | Address | [address] | | | [place] [address] | + + + | Home Phone [...] Team Providers + +------+ + | Care Analyst Competitive Intelligence Name | Role | Phone | + [...] [facility] | | 2019 | | [facility] | DO [address] | | | | | MEDICAL CLIN[facility] [address] | [place] [address] | | | | | [address] [place], | [phone] | | | | | [place] [address] | | | | | | [phone] | | | +--------+ + + + [...] | | | | | [place] [address] | | | | | | [phone] | | | | | | | | | | | | Julia Fisher, | | | | | | PT | | +--------+ + + + + | 02/18/ | Appointment | Rehabilitation | Erika Ernst, | | | 2019 | | | DO [address] | | | | | | [place] [address] | | | | | | [phone] | | | | | | | | | | | | [facility] | | +--------+ + + + + | 02/25/ | Office | Primary Care | Erika Ernst, | | | 2019 | Visit | | DO [address] [place] | | | | | | [place] [address] | | | | | | [phone] | | | | | | | [...] | | | | | | [place] [address] | | | | | | [phone] | | | | | | | | +--------+ + + + + | 02/27/ | Appointment | Radiology | Dhara, | | | 2019 | | | [address] | | | | | | [address]TH [facility] [place], | | | | | | [place] [address] | | | | | | [phone] | | | | | | | | +--------+ + + + + | 03/04/ | Appointment | Rehabilitation | Genesis Ayon OT | | | 2019 | | | | | +--------+ + + + + | 03/09/ | Office | Orthopedic Surgery | Jeffrey Gandhi, | | | 2019 | Visit | | [address] | | | | | | [place] [address] | | | | | | [phone] | | | | | | | [...] [place] | | | | | | [address] | | | | | | [phone] | | | | | | | [...] | | | | | [place] [address] | | | | | | [phone] | | | | | | | | | | | | Azul Yeboah, | | | | | | [address] | | | | | | [place] | | | | | | [place] [address] | | | | | | [phone] | | | | | | | [...] | | | | | | [place] [address] | | | | | | [phone] | | | | | | | | +--------+ + + + + documented as of this encounter Visit Diagnoses Not on filedocumented in this encounter"
--- OUTSIDE RECORDS SUMMARY | ~2020-02-18 | XMS | Encounter Summary ---
Demographics + + + | Address | [address] | | | [place] [address] | + + + | Home Phone [...] Providers + +------+ + | Care Energy Efficiency Specialist Name | Role | Phone | + +------+ + PCP | Unavailable | + +------+ + Encounter Details +--------+ + + + + | Date | Type | Department | Care Team | Description | +--------+ + + + + | 06/14/ | [facility] [place] | Denise Mcgregor | | | 2017 | Encounter | [facility] | [facility] | | | | | [facility] [address] | | | | | | [address] [facility], | | | | | | [place] [address] | | | | | | [phone] | | | +--------+ + + + [...] | | | | | [place] [address] | | | | | | [phone] | | | | | | | | | | | | Julia Fisher, | | | | | | PT | | +--------+ + + + + | 02/18/ | Appointment | Rehabilitation | Erika Ernst, | | | 2019 | | | DO [address] | | | | | | [place] [address] | | | | | | [phone] | | | | | | | | | | | | Genesis Ayon, OT | | +--------+ + + + + | 02/25/ | Office | Primary Care | Erika Ernst, | | | 2019 | Visit | | DO [address] | | | | | | [place] [address] | | | | | | [phone] | | | | | | | [...] | | | | | [place] [address] | | | | | | [phone] | | | | | | | | +--------+ + + + + | 02/27/ | Appointment | Radiology | Dhara, | | | 2019 | | | DWAINE [address] | | | | | | [address] [facility], | | | | | | [place] [address] | | | | | | [phone] | | | | | | | [...] [place] | | | | | | [place] [address] | | | | | | [phone] | | | | | | | [...] [place] | | | | | | [address] | | | | | | [phone] | | | | | | | [...] | | | | | [place] [address] | | | | | | [phone] | | | | | | | | | | | | Azul Yeboah, | | | | | | MD [address] | | | | | | [place] | | | | | | [place] [address] | | | | | | [phone] | | | | | | | [...] | | | | | | [place] [address] | | | | | | [phone] | | | | | | | | +--------+ + + + + documented as of this encounter Visit Diagnoses Not on filedocumented in this encounter"
--- OUTSIDE RECORDS SUMMARY | ~2020-02-18 | XMS | Encounter Summary ---
Demographics + + + | Address | [address] | | | [place] [address] | + + + | Home Phone [...] Providers + +------+ + | Care Sales Training Manager Name | Role | Phone | [...] + + + + | 07/02/ | Telephone | [place] [facility] | Erika Ernst, | Results, Imaging | | 2019 | | [facility] | DO [address] | | | | | MEDICAL CLIN[facility] [address] | [place] [address] | | | | | [address] [place], | [phone] | | | | | [place] [address] | | | | | | [phone] | | | +--------+ + + + [...] | | | | | [place] [address] | | | | | | [phone] | | | | | | | | | | | | Julia Fisher, | | | | | | PT | | +--------+ + + + + | 02/18/ | Appointment | Rehabilitation | Erika Ernst, | | | 2019 | | | DO [address] | | | | | | [place] [address] | | | | | | [phone] | | | | | | | | | | | | [facility] | | +--------+ + + + + | 02/25/ | Office | Primary Care | Erika Ernst, | | | 2019 | Visit | | DO [address] | | | | | | [place] [address] | | | | | | [phone] | | | | | | | [...] | | | | | | [place] [address] | | | | | | [phone] | | | | | | | | +--------+ + + + + | 02/27/ | Appointment | Radiology | Dhara, | | | 2019 | | | [address] | | | | | | [address] [place], | | | | | | [place] [address] | | | | | | [phone] | | | | | | | [...] [address]ORE | | | | | | [place] [address] | | | | | | [phone] | | | | | | | [...] [place] | | | | | | [address] | | | | | | [phone] | | | | | | | [...] | | | | | [place] [address] | | | | | | [phone] | | | | | | | | | | | | Azul Yeboah, | | | | | | MD [address] | | | | | | [place] | | | | | | [place] [address] | | | | | | [phone] | | | | | | | [...] | | | | | | [place] [address] | | | | | | [phone] | | | | | | | | +--------+ + + + + documented as of this encounter Visit Diagnoses Not on filedocumented in this encounter"
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
--- OUTSIDE RECORDS SUMMARY | ~2020-02-18 | XMS | Encounter Summary ---
Demographics + + + | Address | [address] | | | [place] [address] | + + + | Home Phone [...] Providers + +------+ + | Care Assistant Women'S Tennis Coach Name | Role | Phone | [...] | [facility] [address] | [place] [address] | | | | | [address] [place], | [phone] | | | | | [place] [address] | | | | | | [phone] | | | +--------+ + + + [...] | | | | | [place] [address] | | | | | | [phone] | | | | | | | | | | | | Julia Fisher, | | | | | | PT | | +--------+ + + + + | 02/18/ | Appointment | Rehabilitation | Erika Ernst, | | | 2019 | | | DO [address] | | | | | | [place] [address] | | | | | | [phone] | | | | | | | | | | | | [facility] OT | | +--------+ + + + + | 02/25/ | Office | Primary Care | Erika Ernst, | | | 2019 | Visit | | DO [address] | | | | | | [place] [address] | | | | | | [phone] | | | | | | | [...] | | | | | [place] [address] | | | | | | [phone] | | | | | | | | +--------+ + + + + | 02/27/ | Appointment | Radiology | Dhara, | | | 2019 | | | [address] | | | | | | [address] [facility], | | | | | | [place] [address] | | | | | | [phone] | | | | | | | [...] | | | | | [place] [address] | | | | | | [phone] | | | | | | | [...] [place] | | | | | | [address] | | | | | | [phone] | | | | | | | [...] | | | | | [place] [address] | | | | | | [phone] | | | | | | | | | | | | Azul Yeboah, | | | | | | MD [address] | | | | | | [place] | | | | | | [place] [address] | | | | | | [phone] | | | | | | | [...] | | | | | | [place] [address] | | | | | | [phone] | | | | | | | | +--------+ + + + + documented as of this encounter Visit Diagnoses Not on filedocumented in this encounter"
--- OUTSIDE RECORDS SUMMARY | ~2020-02-18 | XMS | Encounter Summary ---
Demographics + + + | Address | [address] | | | [place] [address] | + + + | Home Phone [...] Providers + +------+ + | Care Field Director Name | Role | Phone | [...] Authorizatio | | Rehabilitatio | Diagnoses | Klveer, | Cc Wgr | | n not | | n | Sprain of | Erika A, DO | Therapy Pt | | Required | | | deltoid | [address] | [address] | | | | | ligament of | [place], | | | | | right ankle, | [place] [address] | [place] [address] | | | | | subsequent | Phone: | Phone: | | | | | encounter | [phone] | [phone] | | | | | Procedures | Fax: | Fax: | | | | | PT TREAT | [phone] | [phone] | + +--------+ + + + + Encounter Details +--------+ + + + + | Date | Type | Department | Care Team | Description | +--------+ + + + + | 12/03/ | Hospital | [place] [facility] | Erika Ernst, | Sprain of deltoid | | 2019 | Encounter | HOSPITAL THERAPY PT | DO [address] | ligament of right | | | | [address] [place] | [place] [address] | ankle, subsequent | | | | [place], [place] | [phone] | encounter (Primary | | | | [address] | | Dx) | | | | [phone] | Julia Peña, | | | | | | LEARNING DESIGN SPECIALIST | | +--------+ + + + + [...] + + | amoxicillin | Take 1 tablet by | 14 | 0 | 12/02/19 | | | (AMOXIL) 875 mg | mouth 2 times daily | tablet | | 20 | 0 | | tabletIndications: | for 7 days. | | | | | | Viral URI with | | | | | | | cough, Acute | | | | | | | noninfective otitis | | | | | | | externa of both | | | | | | | ears, unspecified | | | | | | | type | | | | | | [...] predniSONE | Take 2 tablets by | 6 | 0 | 12/02/19 | | | (DELTASONE) 20 mg | mouth Daily for 3 | tablet | | 20 | 0 | | tabletIndications: | days. | | | | | | Viral URI with cough | | | | | | + + + +---------+ + + | QVAR REDIHALER 80 | Take 2 puffs by | | 0 | 10/14/19 | | | MCG/ACT inhaler | mouth 2 times daily. | | | 20 | 0 | + + + +---------+ + + | tiotropium | Inhale 18 mcg into | | 0 | | | | (SPIRIVA) 18 mcg | the lungs Daily. | | | | 0 | | inhalation capsule | | | | | | [...] of this encounter Progress Notes Julia Peña, LEARNING DESIGN SPECIALIST - 12/04/2019 1:00 PM PSTFormatting of this note might be differen t from the original. [facility] THERAPY PT [address] [place] [address] Physical Therapy Daily Treatment Note Date: 12/04/2019 Patient Information Patient Name: Andrea Suh Date of : 1990 Age: 29 y.o. Encounter Diagnoses Code Name Primary? S93.421D Sprain of deltoid ligament of right ankle, subsequent encounter Yes Date of Onset: 05/21/2019 Referring Provider: Erika Ernst DO Objective Pain Assessment: Pain Rating Pre Assessment: 2 Pain Rating During Assessment: 3 Pain Rating Post Assessment: 3 Location: R ankle Pain/Comfort Presence Of Pain: complains of pain/discomfort Today's Treatment Patient Name: Andrae Suh/: 1990/ Start Time: 010 Stop time: 014 Duration: 39 minutes Timed Treatment Codes: 39 minutes # of PT Visits to Date: 2 Visit Summary: S:pt states having pain in both ankles, R 2/10 pain. She continues to be com pliant with HEP from previous ankle PT episodes. A:pt tolerated session with slight increase in pain with R ankle DF stretch on 8 inch step, 2/10 to 3/10 pain. Next Visit Information: Short foot/intrinsics, progress general ankle/foot strengthening, S TM, GT Patient/Caregiver Education Learner: Patient Readiness: Acceptance Method: Explanation Response: Verbalizes Understanding Therapy Interventions HEP: Calf raises with post tib bias, self STM with tennis ball, standing calf strentch PT INTERVENTION 1: TE 39min) Calf raises with post tib bias,Baps board #2 lateral, DF/PF, C W and CWW 30 each, Nustep 10 mins level 2 to increase DF/PF range of motion. Rebounder yelo w ball throws nuetral, narrow, tandem stance 10 throw each. modified SL stance. 8 inch block DF stretch. standing calf stretch leans, standing wall calf stretch. Assessment Rehabilitation potential: Patient demonstrates good potential to achieve established goals to address the documented impairments by participating in skilled physical therapy services. Goals: Electronically signed by: Julia Peña PTA, 12/04/2019 4:31 PM Patient Name: Andrea Suh/: 1990/ documented [...] | | | | | [place] [address] | | | | | | [phone] | | | | | | | | | | | | Julia Fisher, | | | | | | PT | | +--------+ + + + + | 02/18/ | Appointment | Rehabilitation | Erika Ernst, | | | 2019 | | | DO [address] | | | | | | [place] [address] | | | | | | [phone] | | | | | | | | | | | | [facility] | | +--------+ + + + + | 02/25/ | Office | Primary Care | Erika Ernst, | | | 2019 | Visit | | DO [address] | | | | | | [place] [address] | | | | | | [phone] | | | | | | | [...] | | | | | [place] [address] | | | | | | [phone] | | | | | | | | +--------+ + + + + | 02/27/ | Appointment | Radiology | Dhara, | | | 2019 | | | [address] | | | | | | [address] [facility], | | | | | | [place] [address] | | | | | | [phone] | | | | | | | [...] [place] | | | | | | [place] [address] | | | | | | [phone] | | | | | | | [...] [place] | | | | | | [address] | | | | | | [phone] | | | | | | | [...] | | | | | [place] [address] | | | | | | [phone] | | | | | | | | | | | | Azul Yeboah, | | | | | | MD [address] | | | | | | [place] | | | | | | [place] [address] | | | | | | [phone] | | | | | | | | +--------+ + + + + | 04/08/ | Appointment | Nutrition | Janel Wesbter | | | 2019 | | | [place], [place] | | +--------+ + + + + | 05/21/ | Office | Neurology | Dhara, | | | 2019 | Visit | | [address] | | | | | | [address] [facility] [place], | | | | | | [place] [address] | | | | | | [phone] | | | | | | | | +--------+ + + + + documented as of this encounter Visit Diagnoses + + | Diagnosis | + + | Sprain of deltoid ligament of right ankle, subsequent encounter - Primary | + + documented in this encounter"
--- OUTSIDE RECORDS SUMMARY | ~2020-02-18 | XMS | Encounter Summary ---
Demographics + + + | Address | [address] | | | [place] [address] | + + + | Home Phone [...] Team Providers + +------+ + | Care Logistics Specialist Name | Role | Phone | + +------+ + | Erika Ernst DO | PCP | | + +------+ + Reason for Visit +---------+ + | Reason | Comments | +---------+ + | Otalgia | | +---------+ + | Cough | | +---------+ + Encounter Details +--------+---------+ + + + | Date | Type | Department | Care Team | Description | +--------+---------+ + + + | 12/11/ | Office | [place] [facility] | Harvey, | Otalgia of both ears | | 2020 | Visit | [facility] | joanna, NEW CLIENT BANKING SERVICES CLERK [address] | (Primary Dx); Dry | | | | MED[facility] [address] | [address] | cough | | | | [address] [place], | [place] [address] | | | | | [place] [address] | [phone] | | | | | [phone] | | | +--------+---------+ + + + [...] + + + | Blood Pressure | 124/62 | 12/12/2019 9:05 AM | | | | | PDT | | + + + + + | Pulse | 77 | 12/12/2019 9:05 AM | | | | | PDT | | + + + + + | Temperature | 36.3 C (97.4 F) | 12/12/2019 9:05 AM | | | | | PDT | | + + + + + | Respiratory Rate | 18 | 12/12/2019 9:05 AM | | | | | PDT | | + + + + + | Oxygen Saturation | 97% | 12/12/2019 9:05 AM | | | | | PDT | | + + + + + | Inhaled Oxygen | - | - | | | Concentration | | | | + + + + + | Weight | 163.3 kg (360 lb) | 12/12/2019 9:05 AM | | | | | PDT | | + + + + + | Height | - | - | | + + + + + | Body Mass Index | 51.65 | 11/25/2019 2:22 PM | | | | | PST | | + + + + + documented in this encounter Progress Salinas Pagan FNP - 12/12/2019 9:00 AM PDTFormatting of this note might be differe nt from the original. Chief Complaint Patient presents with Otalgia Cough Assessment 1. Otalgia of both ears - amoxicillin-clavulanate (AUGMENTIN) 875-125 mg per tablet; Take 1 tablet by mouth 2 times daily for 7 days. Dispense: 14 tablet; Refill: 0 2. Dry cough - amoxicillin-clavulanate (AUGMENTIN) 875-125 mg per tablet; Take 1 tablet by mouth 2 times daily for 7 days. Dispense: 14 tablet; Refill: 0 - benzonatate (TESSALON) 100 mg capsule; Take 2 capsules by mouth 3 times daily as needed f or Cough. Dispense: 30 capsule; Refill: 0 Plan Start antibiotic (second round) Start cough medication Increase fluid intake Subjective: Patient ID: Andrea Suh is a 29 y.o. female here for follow-up from walk-in visit of 12/01. Patient was seen for URI with cough. She stated that they coughing has improved an d now it is only a dry cough however, the ear pain has gotten worse especially in the left e ar. Otalgia There is pain in the left ear. This is a new problem. The current episode started 1 to 4 we eks ago. The problem occurs constantly. The problem has been waxing and waning. There has be en no fever. Pertinent negatives include no ear discharge. She has tried acetaminophen for t he symptoms. Cough The cough is non-productive. Pertinent negatives include no fever. Objective: BP 124/62 | Pulse 77 | Temp 36.3 C (97.4 F) (Temporal) | Resp 18 | Wt (!) 163.3 kg (360 lb) | SpO2 97% | BMI 51.65 kg/m Physical Exam Constitutional: Appearance: Normal appearance. HENT: Right Ear: Tenderness present. No drainage. Left Ear: Tenderness present. No drainage. Tympanic membrane is erythematous. Nose: Right Sinus: Maxillary sinus tenderness present. Left Sinus: Maxillary sinus tenderness present. Cardiovascular: Heart sounds: Normal heart sounds. Pulmonary: Breath sounds: Normal breath sounds. Musculoskeletal: Normal range of motion. Skin: General: Skin is warm and dry. Social History Socioeconomic History Marital status: Single [...] file Gets together: Not on file Attends restorationism service: Not on file Active member of [...] Tape Rash Electronically signed by DWAINE Orozco 12/12/2019 09:31 Note: Part of this report was transcribed using voice recognition software. Every effort wa s made to ensure accuracy. However, inadvertent computerized installation coordinator errors may be pre sent documented i [...] | | | | | [place] [address] | | | | | | [phone] | | | | | | | | | | | | Julia Fisher, | | | | | | PT | | +--------+ + + + + | 02/18/ | Appointment | Rehabilitation | Erika Ernst, | | | 2019 | | | DO [address] [place] | | | | | | [place] [address] | | | | | | [phone] | | | | | | | | | | | | [facility] OT | | +--------+ + + + + | 02/25/ | Office | Primary Care | Erika Ernst, | | | 2019 | Visit | | DO [address] [place] | | | | | | [place] [address] | | | | | | [phone] | | | | | | | [...] | | | | | [place] [address] | | | | | | [phone] | | | | | | | | +--------+ + + + + | 02/27/ | Appointment | Radiology | Dhara | | | 2019 | | | [address] | | | | | [address] [place], | | | | | | [place] [address] | | | | | | [phone] | | | | | | | [...] ST | | | | | | [place] [address] | | | | | | [phone] | | | | | | | [...] [place] | | | | | | [address] | | | | | | [phone] | | | | | | | [...] | | | | | [place] [address] | | | | | | [phone] | | | | | | | | | | | | Azul Yeboah, | | | | | | [address] | | | | | | [place] | | | | | | [place] [address] | | | | | | [phone] | | | | | | | [...] | | | | | | [place] [address] | | | | | | [phone] | | | | | | | | +--------+ + + + + documented as of this encounter Visit Diagnoses + + | Diagnosis | + + | Otalgia of both ears - Primary Otalgia, unspecified | + + | Dry cough Cough | + + documented in this encounter"
--- OUTSIDE RECORDS SUMMARY | ~2020-02-18 | XMS | Encounter Summary ---
Demographics + + + | Address | [address] | | | [place] [address] | + + + | Home Phone [...] Providers + +------+ + | Care Senior Hr Generalist Name | Role | Phone | + [...] | | | 2018 | Support | [facility] | [facility] [address] [facility] | | | | | MEDICAL CLIN[facility] [address] | [facility] [place] [address] | | | | | [address] [place], | [phone] | | | | | [place] [address] | | | | | | [phone] | | | +--------+ + + + [...] | | | | | [place] [address] | | | | | | [phone] | | | | | | | | | | | | Julia Fisher, | | | | | | PT | | +--------+ + + + + | 02/18/ | Appointment | Rehabilitation | Erika Ernst, | | | 2019 | | | DO [address] [place] | | | | | | [place] [address] | | | | | | [phone] | | | | | | | | | | | | [facility] OT | | +--------+ + + + + | 02/25/ | Office | Primary Care | Erika Ernst, | | | 2019 | Visit | | DO [address] [place] | | | | | | [place] [address] | | | | | | [phone] | | | | | | | [...] | | | | | [place] [address] | | | | | | [phone] | | | | | | | | +--------+ + + + + | 02/27/ | Appointment | Radiology | Dhara, | | | 2019 | | | [address] | | | | | | [address] [place], | | | | | | [place] [address] | | | | | | [phone] | | | | | | | | +--------+ + + + + | 03/04/ | Appointment | Rehabilitation | [facility] Ayon OT | | | 2019 | | | | | +--------+ + + + + | 03/09/ | Office | Orthopedic Surgery | Jeffrey Gandhi, | | | 2019 | Visit | | [address] | | | | | | [place] [address] | | | | | | [phone] | | | | | | | [...] [place] | | | | | | [address] | | | | | | [phone] | | | | | | | [...] | | | | | [place] [address] | | | | | | [phone] | | | | | | | | | | | | Azul Yeboah, | | | | | | MD [address] | | | | | | [place] | | | | | | [place] [address] | | | | | | [phone] | | | | | | | [...] | | | | | | [place] [address] | | | | | | [phone] | | | | | | | | +--------+ + + + + documented as of this encounter Visit Diagnoses Not on filedocumented in this encounter"
--- OUTSIDE RECORDS SUMMARY | ~2020-02-18 | XMS | Encounter Summary ---
Demographics + + + | Address | [address] | | | [place] [address] | + + + | Home Phone [...] Team Providers + +------+ + | Care Train Operations Supervisor Name | Role | Phone | + +------+ + PCP | Unavailable | + +------+ + Encounter Details +--------+ + + + + | Date | Type | Department | Care Team | Description | +--------+ + + + + | 08/04/ | [facility] | Jessica Hoang, | | | 2013 | Encounter | HOSPITAL EMERGENCY | [address] | | | | | CENTER [address] | [place] | | | | | [place] | [address] | | | | | [address] | | | | | | [phone] | | | +--------+ + + + [...] | | | | | [place] [address] | | | | | | [phone] | | | | | | | | | | | | Julia Fisher, | | | | | | PT | | +--------+ + + + + | 02/18/ | Appointment | Rehabilitation | Erika Ernst, | | | 2019 | | | DO [address] [place] | | | | | | [place] [address] | | | | | | [phone] | | | | | | | | | | | | Genesis Ayon, SUSAN | | +--------+ + + + + | 02/25/ | Office | Primary Care | Erika Ernst, | | | 2019 | Visit | | DO [address] [place] | | | | | | [place] [address] | | | | | | [phone] | | | | | | | [...] | | | | | | [place] [address] | | | | | | [phone] | | | | | | | | +--------+ + + + + | 02/27/ | Appointment | Radiology | Dhara, | | | 2019 | | | [address] | | | | | | [address]TH [facility], | | | | | | [place] [address] | | | | | | [phone] | | | | | | | | +--------+ + + + + | 03/04/ | Appointment | Rehabilitation | Genesis Ayon OT | | | 2019 | | | | | +--------+ + + + + | 03/09/ | Office | Orthopedic Surgery | Jeffrey Gandhi, | | | 2019 | Visit | | [address] [facility] | | | | | | [place] [address] | | | | | | [phone] | | | | | | | [...] [place] | | | | | | [address] | | | | | | [phone] | | | | | | | [...] | | | | | [place] [address] | | | | | | [phone] | | | | | | | | | | | | Azul Yeboah, | | | | | | MD [address] | | | | | | [place] | | | | | | [place] [address] | | | | | | [phone] | | | | | | | [...] | | | | | | [place] [address] | | | | | | [phone] | | | | | | | | +--------+ + + + + documented as of this encounter Visit Diagnoses Not on filedocumented in this encounter"
--- OUTSIDE RECORDS SUMMARY | ~2020-02-18 | XMS | Encounter Summary ---
Demographics + + + | Address | [address] | | | [place] [address] | + + + | Home Phone [...] Providers + +------+ + | Care Auto Glass Technician Name | Role | Phone | [...] Problem | | 2020 | | [facility] | DO [address] | | | | | MED[facility] CL[facility] [address] | [place] [address] | | | | | [address] [facility], | [phone] | | | | | [place] [address] | | | | | | [phone] | | | +--------+ + + + [...] | | | | | [place] [address] | | | | | | [phone] | | | | | | | | | | | | Julia Fisher, | | | | | | PT | | +--------+ + + + + | 02/18/ | Appointment | Rehabilitation | Erika Ernst, | | | 2019 | | | DO [address] | | | | | | [place] [address] | | | | | | [phone] | | | | | | | | | | | | [facility] OT | | +--------+ + + + + | 02/25/ | Office | Primary Care | Erika Ernst, | | | 2019 | Visit | | DO [address] | | | | | | [place] [address] | | | | | | [phone] | | | | | | | [...] | | | | | [place] [address] | | | | | | [phone] | | | | | | | | +--------+ + + + + | 02/27/ | Appointment | Radiology | Dhara, | | | 2019 | | | [address] | | | | | | [address] [place], | | | | | | [place] [address] | | | | | | [phone] | | | | | | | [...] [place] | | | | | | [place] [address] | | | | | | [phone] | | | | | | | [...] [place] | | | | | | [address] | | | | | | [phone] | | | | | | | [...] | | | | | [place] [address] | | | | | | [phone] | | | | | | | | | | | | Azul Yeboah, | | | | | | MD [address] | | | | | | [place] | | | | | | [place] [address] | | | | | | [phone] | | | | | | | [...] | | | | | | [place] [address] | | | | | | [phone] | | | | | | | | +--------+ + + + + documented as of this encounter Visit Diagnoses Not on filedocumented in this encounter"
--- OUTSIDE RECORDS SUMMARY | ~2020-02-18 | XMS | Encounter Summary ---
Demographics + + + | Address | [address] | | | [place] [address] | + + + | Home Phone [...] Team Providers + +------+ + | Care Harvest Worker Name | Role | Phone | + +------+ + | Erika Ernst DO | PCP | | + +------+ + Reason for Visit + + + | Reason | Comments | + + + | Pharyngitis | | + + + Encounter Details +--------+---------+ + + + | Date | Type | Department | Care Team | Description | +--------+---------+ + + + | 10/16/ | Office | [facility] [facility] | Anastasia Alberto, | Acute pharyngitis | | 2019 | Visit | [facility] | CABLEWAY OPERATOR [address] | due to other | | | | MEDICAL CLINIC [address] | [place] [address] | specified organisms | | | | [address] [place], | [phone] | (Primary Dx) | | | | [place] [address] | | | | | | [phone] | | | +--------+---------+ + + + [...] + + + | Blood Pressure | 120/70 | 10/16/2018 2:52 PM | | | | | PST | | + + + + + | Pulse | 105 | 10/16/2018 2:52 PM | | | | | PST | | + + + + + | Temperature | 36.7 C (98 F) | 10/16/2018 2:52 PM | | | | | PST | | + + + + + | Respiratory Rate | 18 | 10/16/2018 2:52 PM | | | | | PST | | + + + + + | Oxygen Saturation | 98% | 10/16/2018 2:52 PM | | | | | PST | | + + + + + | Inhaled Oxygen | - | - | | | Concentration | | | | + + + + + | Weight | 169.1 kg (372 lb | 10/16/2018 2:52 PM | | | | 12.8 oz) | PST | | + + + + + | Height | - | - | | + + + + + | Body Mass Index | 53.49 | 10/09/2018 4:27 PM | | | | | PST | | + + + + + documented in this encounter Patient Instructions Patient Instructions Anastasia Alberto FNP - 10/16/2018 3:00 PM PSTDiscussed current sympt oms and strep exposure RS test negative in office Culture pending Will treat prophylactic until culture available Start Amoxil as ordered FU PRN documented in this encounter Progress Notes Anastasia Alberto FNP - 10/16/2018 3:00 PM PSTFormatting of this note might be different f rom the original. Patient ID: Andrea Suh is a 28 y.o. year old female Chief Complaint: Chief Complaint Patient presents with Pharyngitis Assessment and Plan: 1. Acute pharyngitis due to other specified organisms Discussed current symptoms and strep exposure RS test negative in office Culture pending Will treat prophylactic until culture available due to exposure Start Amoxil as ordered FU PRN - POCT Rapid Strep A Screen - Culture, Respiratory, Upper Subjective: Pt is new to me and here today for sore throat x 4 days- Pt reports exposed derek Strep infec tion with sick family last week. Pt reports started feeling sore throat pain x 4 days, pain with swallowing, reports cold chills last night- using cough drops and numbing spray and is keeping hydrated with fluids. Pt reports last dose of ibuprofen at 800. Pt reports slight pa in to left and right side of neck Allergies: Allergies Allergen Reactions Escitalopram Palpitations Latex Rash Hydrocodone Hives Oxycodone Uncoded Nonscreenable Allergen Other (See Comments) Other reaction(s): Proclivity to C-diff with certain antibiotics Adhesive & Tape Rash Social History: Social History Social History Marital status: Single Spouse name: N/A Number of children: N/A Years of education: N/A Occupational History Not on file. Social History Main Topics Smoking status: Never Smoker Smokeless tobacco: Never Used Alcohol use No Drug use: No Sexual activity: Yes control/ protection: Condom Other Topics Concern Not on file Social History Narrative No narrative on file Medications: Current Outpatient Prescriptions Medication Sig Dispense Refill albuterol-ipratropium (COMBIVENT RESPIMAT) 100-20 mcg/puff inhaler Inhale 1 puff into t he lungs every 4 hours as needed for Shortness of Breath. 1 Inhaler 5 amLODIPine (NORVASC) 10 MG tablet Take 1 tablet by mouth Daily. 30 tablet 11 amoxicillin (AMOXIL) 500 MG capsule Take 1 capsule by mouth 2 times daily for 10 days. 20 capsule 0 beclomethasone (QVAR) 80 mcg/puff inhaler 4 [...] visit. Review of Systems Constitutional: Positive for chills. Negative for fever. HENT: Positive for postnasal drip and sore throat. Respiratory: Negative. Cardiovascular: Negative. Gastrointestinal: Negative. Objective: Vitals: BP 120/70 | Pulse 105 | Temp 36.7 C (98 F) (Temporal) | Resp 18 | Wt (!) 169.1 kg ( 372 lb 12.8 oz) | LMP (LMP Unknown) | SpO2 98% | BMI 53.49 kg/m Physical Exam Constitutional: She appears well-developed and well-nourished. HENT: Mouth/Throat: Posterior oropharyngeal erythema present. Cardiovascular: Normal rate and regular rhythm. Pulmonary/Chest: Effort normal and breath sounds normal. This note was transcribed using voice recognition [...] | | | | | [place] [address] | | | | | | [phone] | | | | | | | | | | | | Julia Fisher, | | | | | | PT | | +--------+ + + + + | 02/18/ | Appointment | Rehabilitation | Erika Ernst, | | | 2019 | | | DO [address] | | | | | | [place] [address] | | | | | | [phone] | | | | | | | | | | | | [facility] OT | | +--------+ + + + + | 02/25/ | Office | Primary Care | Erika Ernst, | | | 2019 | Visit | | DO [address] | | | | | | [place] [address] | | | | | | [phone] | | | | | | | [...] | | | | | [place] [address] | | | | | | [phone] | | | | | | | | +--------+ + + + + | 02/27/ | Appointment | Radiology | Dhara, | | | 2019 | | | [address] | | | | | | [address] [place], | | | | | | [place] [address] | | | | | | [phone] | | | | | | | [...] | | | | | [place] [address] | | | | | | [phone] | | | | | | | [...] [place] | | | | | | [address] | | | | | | [phone] | | | | | | | [...] | | | | | [place] [address] | | | | | | [phone] | | | | | | | | | | | | Azul Yeboah, | | | | | | MD [address] | | | | | | [place] | | | | | | [place] [address] | | | | | | [phone] | | | | | | | [...] [address] | | | | | | [phone] | | | | | | | | +--------+ + + + + documented as of this encounter Procedures + +--------+ + + + | Procedure Name | Priori | Date/Time | Associated Diagnosis | Comments | | | ty | | | | + +--------+ + + + | CULTURE, | Routin | 10/16/2018 | Acute pharyngitis | Results for this | | RESPIRATORY, UPPER | e | 3:30 PM | due to other | procedure are in the | | | | PST | specified organisms | results section. | + +--------+ + + + | POCT RAPID STREP A | Routin | 10/16/2018 | Acute pharyngitis | Results for this | | SCREEN | e | 3:07 PM | due to other | procedure are in the | | | | PST | specified organisms | results section. | + +--------+ + + + documented in this encounter Results Culture, Respiratory, Upper (10/16/2018 3:30 PM PST) + + + + + + | Component | Value | Ref Range | Performed | Pathologist | | | | | At | Signature | + + + + + + | Culture | No pathogens isolated | | [place] [facility] | | | | [facility] | | + + + + + + + + | Specimen | + + | Body Fluid - | | Specimen from throat | | (specimen) | + + + + + + + | Performing | Address | City/State/Zipcode | Phone Number | | Organization | | | | + + + + + | [facility] [facility] | [address] | [place] | [phone] | | [facility] | | [address] | | + + + + + POCT Rapid Strep A Screen (10/16/2018 3:07 PM PST) + + + + + + | Component | Value | Ref Range | Performed | Pathologist | | | | | At | Signature | + + + + + + | Rapid Strep | Negative | Negative | | | | A Screen | | | | | + + + + + + | Internal QC | Acceptable | Acceptable, Not | | | | | | Performed | | | + + + + + + | CULTURE | | | | | | SENT TO LAB | | | | | + + + + + + | Lot Number | | | | | + + + + + + | Expiration | | | | | | Date | | | | | + + + + + + + + | Specimen | + + | Body Fluid | + + documented in this encounter Visit Diagnoses + + | Diagnosis | + + | Acute pharyngitis due to other specified organisms - Primary | + + documented in this encounter"
--- OUTSIDE RECORDS SUMMARY | ~2020-02-18 | XMS | Encounter Summary ---
Demographics + + + | Address | [address] | | | [place] [address] | + + + | Home Phone [...] Team Providers + +------+ + | Care Rip And Groove Machine Operator Name | Role | Phone | + +------+ + | Erika Ernst DO | PCP | | + +------+ + Reason for Visit + + + | Reason | Comments | + + + | Sinusitis | | + + + Encounter Details +--------+ + + + + | Date | Type | Department | Care Team | Description | +--------+ + + + + | 06/10/ | Telephone | [place] [facility] | Erika Ernst, | Sinusitis | | 2019 | | [facility] | DO [address] | | | | | MEDICAL CLINIC [address] | [place] [address] | | | | | [address] [place], | [phone] | | | | | [place] [address] | | | | | | [phone] | | | +--------+ + + + [...] | | | | | [place] [address] | | | | | | [phone] | | | | | | | | | | | | Julia Fisher, | | | | | | PT | | +--------+ + + + + | 02/18/ | Appointment | Rehabilitation | Erika Ernst, | | | 2019 | | | DO [address] | | | | | | [place] [address] | | | | | | [phone] | | | | | | | | | | | | Genesis Ayon OT | | +--------+ + + + + | 02/25/ | Office | Primary Care | Erika Ernst, | | | 2019 | Visit | | DO [address] | | | | | | [place] [address] | | | | | | [phone] | | | | | | | | +--------+ + + + + | 02/25/ | Appointment | Rehabilitation | Genesis Ayon OT | | | 2019 | | | | | +--------+ + + + + | 02/26/ | Virtual | Rehabilitation | Usha Rodriguez | | 2019 | Office | | MD [address] | | | | Visit | | [address] [place] | | | | | | [place] [address] | | | | | | [phone] | | | | | | | | +--------+ + + + + | 02/27/ | Appointment | Radiology | Dhara, | | | 2019 | | | [address] | | | | | | [address] [facility], | | | | | | [place] [address] | | | | | | [phone] | | | | | | | [...] [address] | | | | | | [place] [address] | | | | | | [phone] | | | | | | | [...] [place] | | | | | | [address] | | | | | | [phone] | | | | | | | [...] | | | | | [place] [address] | | | | | | [phone] | | | | | | | | | | | | Azul Yeboah, | | | | | | MD [address] | | | | | | [place] | | | | | | [place] [address] | | | | | | [phone] | | | | | | | [...] | | | | | | [place] [address] | | | | | | [phone] | | | | | | | | +--------+ + + + + documented as of this encounter Visit Diagnoses Not on filedocumented in this encounter"
--- OUTSIDE RECORDS SUMMARY | ~2020-02-18 | XMS | Encounter Summary ---
Demographics + + + | Address | [address] | | | [place] [address] | + + + | Home Phone [...] Providers + +------+ + | Care Fur Polisher Name | Role | Phone | [...] Sinusitis | | 2019 | | [facility] | DO [address] | | | | | MEDICAL CLINIC [address] | [place] [address] | | | | | [address] [place], | [phone] | | | | | [place] [address] | | | | | | [phone] | | | +--------+ + + + [...] | | | | | [place] [address] | | | | | | [phone] | | | | | | | | | | | | Julia Fisher, | | | | | | PT | | +--------+ + + + + | 02/18/ | Appointment | Rehabilitation | Erika Ernst, | | | 2019 | | | DO [address] | | | | | | [place] [address] | | | | | | [phone] | | | | | | | | | | | | [facility] OT | | +--------+ + + + + | 02/25/ | Office | Primary Care | Erika Ernst, | | | 2019 | Visit | | DO [address] | | | | | | [place] [address] | | | | | | [phone] | | | | | | | [...] | | | | | [place] [address] | | | | | | [phone] | | | | | | | | +--------+ + + + + | 02/27/ | Appointment | Radiology | Dhara, | | | 2019 | | | [address] | | | | | | 4TH [facility], | | | | | | [place] [address] | | | | | | [phone] | | | | | | | | +--------+ + + + + | 03/04/ | Appointment | Rehabilitation | Genesis Ayon OT | | | 2019 | | | | | +--------+ + + + + | 03/09/ | Office | Orthopedic Surgery | Jeffrey Gandhi, | | | 2019 | Visit | | [place] [address] | | | | | | [place] [address] | | | | | | [phone] | | | | | | | [...] | | | | | | [address] | | | | | | [place] | | | | | | [address] | | | | | | [phone] | | | | | | | [...] | | | | | [place] [address] | | | | | | [phone] | | | | | | | | | | | | Azul Yeboah, | | | | | | MD [address] | | | | | | [place] | | | | | | [place] [address] | | | | | | [phone] | | | | | | | [...] | | | | | | [place] [address] | | | | | | [phone] | | | | | | | | +--------+ + + + + documented as of this encounter Visit Diagnoses Not on filedocumented in this encounter"
--- OUTSIDE RECORDS SUMMARY | ~2020-02-18 | XMS | Encounter Summary ---
Demographics + + + | Address | [address] | | | [place] [address] | + + + | Home Phone [...] Providers + +------+ + | Care Regional Agronomist Name | Role | Phone | + [...] + | 08/20/ | Telephone | [facility] [facility] | Erika Ernst, | Referral Question | | 2019 | | [facility] | DO [address] | | | | | MEDICAL CLIN[facility] [address] | [facility] [address] | | | | | [address] [place], | [phone] | | | | | [place] [address] | | | | | | [phone] | | | +--------+ + + + [...] | | | | | [place] [address] | | | | | | [phone] | | | | | | | | | | | | Julia Fisher, | | | | | | PT | | +--------+ + + + + | 02/18/ | Appointment | Rehabilitation | Erika Ernst, | | | 2019 | | | DO [address] | | | | | | [place] [address] | | | | | | [phone] | | | | | | | | | | | | [facility] OT | | +--------+ + + + + | 02/25/ | Office | Primary Care | Erika Ernst, | | | 2019 | Visit | | DO [address] | | | | | | [place] [address] | | | | | | [phone] | | | | | | | [...] | | | | | [place] [address] | | | | | | [phone] | | | | | | | | +--------+ + + + + | 02/27/ | Appointment | Radiology | Dhara, | | | 2019 | | | [address] | | | | | | [address] [place], | | | | | | [place] [address] | | | | | | [phone] | | | | | | | [...] [place] | | | | | | [place] [address] | | | | | | [phone] | | | | | | | [...] [place] | | | | | | [address] | | | | | | [phone] | | | | | | | [...] | | | | | [place] [address] | | | | | | [phone] | | | | | | | | | | | | Azul Yeboah, | | | | | | MD [address] | | | | | | [place] | | | | | | [place] [address] | | | | | | [phone] | | | | | | | [...] | | | | | | [place] [address] | | | | | | [phone] | | | | | | | | +--------+ + + + + documented as of this encounter Visit Diagnoses Not on filedocumented in this encounter"
--- OUTSIDE RECORDS SUMMARY | ~2020-02-18 | XMS | Encounter Summary ---
Demographics + + + | Address | [address] | | | [place] [address] | + + + | Home Phone [...] Team Providers + +------+ + | Care Nursery Supervisor Name | Role | Phone | [...] [place] | | | | | [place] [address] | [address] | | | | | [phone] | [phone] | | | | | | | [...] | | 2019 | | | DO [facility] | | | | | | [place] [address] | | | | | | [phone] | | | | | | | | | | | | Julia Fisher, | | | | | | PT | | +--------+ + + + + | 02/18/ | Appointment | Rehabilitation | Erika Ernst, | | | 2019 | | | DO [address] | | | | | | [place] [address] | | | | | | [phone] | | | | | | | | | | | | [facility] OT | | +--------+ + + + + | 02/25/ | Office | Primary Care | Erika Ernst, | | | 2019 | Visit | | DO [address] | | | | | | [place] [address] | | | | | | [phone] | | | | | | | [...] | | | | | [place] [address] | | | | | | [phone] | | | | | | | | +--------+ + + + + | 02/27/ | Appointment | Radiology | Dhara, | | | 2019 | | | [address] | | | | | | 4TH [facility], | | | | | | [place] [address] | | | | | | [phone] | | | | | | | | +--------+ + + + + | 03/04/ | Appointment | Rehabilitation | Genesis Ayon OT | | | 2019 | | | | | +--------+ + + + + | 03/09/ | Office | Orthopedic Surgery | Jeffrey Gandhi, | | | 2019 | Visit | | [address] | | | | | | [place] [address] | | | | | | [phone] | | | | | | | [...] [place] | | | | | | [address] | | | | | | [phone] | | | | | | | [...] | | | | | [place] [address] | | | | | | [phone] | | | | | | | | | | | | Azul Yeboah, | | | | | | MD [address] | | | | | | [place] | | | | | | [place] [address] | | | | | | [phone] | | | | | | | [...] | | | | | | [place] [address] | | | | | | [phone] | | | | | | | | +--------+ + + + + documented as of this encounter Visit Diagnoses Not on filedocumented in this encounter"
--- OUTSIDE RECORDS SUMMARY | ~2020-02-18 | XMS | Encounter Summary ---
Demographics + + + | Address | [address] | | | [place] [address] | + + + | Home Phone [...] Team Providers + +------+ + | Care Site Leasing Agent Name | Role | Phone | + +------+ + | Erika Ernst DO | PCP | | + +------+ + Reason for Visit + + + | Reason | Comments | + + + | Medication Orders | PA request | + + + Encounter Details +--------+ + + + + | Date | Type | Department | Care Team | Description | +--------+ + + + + | 01/16/ | Telephone | [facility] | Emily Mittal DPM | Medication Orders | | 2019 | | [facility] | [address] [place] | (PA request) | | | | [address] [place] [address] | [place] | | | | | [place] | [address] | | | | | [address] | | | | | | [phone] | | | +--------+ + + + [...] | | | | | [place] [address] | | | | | | [phone] | | | | | | | | | | | | Julia Fisher, | | | | | | PT | | +--------+ + + + + | 02/18/ | Appointment | Rehabilitation | Erika Ernst, | | | 2019 | | | DO [address] | | | | | | [place] [address] | | | | | | [phone] | | | | | | | | | | | | Genesis [facility]yon OT | | +--------+ + + + + | 02/25/ | Office | Primary Care | Erika Ernst, | | | 2019 | Visit | | DO [address] | | | | | | [place] [address] | | | | | | [phone] | | | | | | | [...] [place] | | | | | | [place] [address] | | | | | | [phone] | | | | | | | | +--------+ + + + + | 02/27/ | Appointment | Radiology | Dhara, | | | 2019 | | | [address] | | | | | | 4TH [facility], | | | | | | [place] [address] | | | | | | [phone] | | | | | | | [...] [place] | | | | | | [place] [address] | | | | | | [phone] | | | | | | | [...] [place] | | | | | | [address] | | | | | | [phone] | | | | | | | [...] | | | | | [place] [address] | | | | | | [phone] | | | | | | | | | | | | Azul Yeboah, | | | | | | MD [address] | | | | | | [place] | | | | | | [place] [address] | | | | | | [phone] | | | | | | | [...] | | | | | | [place] [address] | | | | | | [phone] | | | | | | | | +--------+ + + + + documented as of this encounter Visit Diagnoses Not on filedocumented in this encounter"
--- OUTSIDE RECORDS SUMMARY | ~2020-02-18 | XMS | Encounter Summary ---
Demographics + + + | Address | [address] | | | [place] [address] | + + + | Home Phone [...] Team Providers + +------+ + | Care Teacher Dramatics Name | Role | Phone | + +------+ + PCP | Unavailable | + +------+ + Encounter Details +--------+ + + + + | Date | Type | Department | Care Team | Description | +--------+ + + + + | 06/18/ | Hospital | [facility] [facility] | Heather Yip, | | | 2016 | Encounter | [facility] | GUEST RELATIONS REPRESENTATIVE [address] | | | | | [address] [place] | [place] [address] | | | | | [place], [place] | [phone] | | | | | [address] | | | | | | [phone] | | | +--------+ + + + [...] | | 2019 | | | DO [address] [place] [address] | | | | | | [place] [address] | | | | | | [phone] | | | | | | | | | | | | Julia Fisher, | | | | | | PT | | +--------+ + + + + | 02/18/ | Appointment | Rehabilitation | Erika Ernst, | | | 2019 | | | DO [address] [place] | | | | | | [place] [address] | | | | | | [phone] | | | | | | | | | | | | Genesis Ayon, SUSAN | | +--------+ + + + + | 02/25/ | Office | Primary Care | Erika Ernst, | | | 2019 | Visit | | DO [address] [place] | | | | | | [place] [address] | | | | | | [phone] | | | | | | | [...] | | | | | [place] [address] | | | | | | [phone] | | | | | | | | +--------+ + + + + | 02/27/ | Appointment | Radiology | Dhara, | | | 2019 | | | [address] | | | | | | [address] [place], | | | | | | [place] [address] | | | | | | [phone] | | | | | | | | +--------+ + + + + | 03/04/ | Appointment | Rehabilitation | Genesis Ayon OT | | | 2019 | | | | | +--------+ + + + + | 03/09/ | Office | Orthopedic Surgery | Jeffrey Gandhi, | | | 2019 | Visit | | [address] | | | | | | [place] [address] | | | | | | [phone] | | | | | | | [...] [place] | | | | | | [address] | | | | | | [phone] | | | | | | | [...] | | | | | [place] [address] | | | | | | [phone] | | | | | | | | | | | | Azul Yeboah, | | | | | | MD [address] | | | | | | [place] | | | | | | [place] [address] | | | | | | [phone] | | | | | | | [...] | | | | | | [place] [address] | | | | | | [phone] | | | | | | | | +--------+ + + + + documented as of this encounter Visit Diagnoses Not on filedocumented in this encounter"
--- OUTSIDE RECORDS SUMMARY | ~2020-02-18 | XMS | Encounter Summary ---
Demographics + + + | Address | [address] | | | [place] [address] | + + + | Home Phone [...] Team Providers + +------+ + | Care Supplier Quality Engineer Name | Role | Phone | [...] | [address] [place], [place] | [place] [address] | | | | | [address] | [phone] | | | | | [phone] | | | +--------+ + + + [...] | | | | | [place] [address] | | | | | | [phone] | | | | | | | | | | | | Julia Fisher, | | | | | | PT | | +--------+ + + + + | 02/18/ | Appointment | Rehabilitation | Erika Ernst, | | | 2019 | | | DO [address] | | | | | | [place] [address] | | | | | | [phone] | | | | | | | | | | | | Genesis Ayon OT | | +--------+ + + + + | 02/25/ | Office | Primary Care | Erika Ernst, | | | 2019 | Visit | | DO [address] | | | | | | [place] [address] | | | | | | [phone] | | | | | | | [...] | | | | | [place] [address] | | | | | | [phone] | | | | | | | | +--------+ + + + + | 02/27/ | Appointment | Radiology | Dhara, | | | 2019 | | | DWAINE Ross [address] | | | | | | [address] [facility] [place], | | | | | | [place] [address] | | | | | | [phone] | | | | | | | [...] MOORE | | | | | | [place] [address] | | | | | | [phone] | | | | | | | [...] [place] | | | | | | [address] | | | | | | [phone] | | | | | | | [...] | | | | | [place] [address] | | | | | | [phone] | | | | | | | | | | | | Azul Yeboah, | | | | | | MD [address] | | | | | | [place] | | | | | | [place] [address] | | | | | | [phone] | | | | | | | | +--------+ + + + + | 04/08/ | Appointment | Nutrition | Janel Webster | | | 2019 | | | [place], KHOA | | +--------+ + + + + | 05/21/ | Office | Neurology | Dhara, | | | 2020 | Visit | | Cody, LIME SUPERVISOR [address] | | | | | | [address] [facility] [place], | | | | | | [place] [address] | | | | | | [phone] | | | | | | | [...] - 1.030 | EXTERNAL | | | [place], | | | LAB | | | [...]
--- OUTSIDE RECORDS SUMMARY | ~2020-02-18 | XMS | Encounter Summary ---
Demographics + + + | Address | [address] | | | [place] [address] | + + + | Home Phone [...] Team Providers + +------+ + | Care Squad Leader Name | Role | Phone | [...] | +--------+ + + + + | 12/18/ | Telephone | [place] [facility] | Erika Ernst, | Paperwork | | 2020 | | [facility] | DO [address] | | | | | [facility] | [place] [address] | | | | | [address] [place], | [phone] | | | | | [place] [address] | | | | | | [phone] | | | +--------+ + + + [...] | | | | | [place] [address] | | | | | | [phone] | | | | | | | | | | | | Julia Fisher, | | | | | | PT | | +--------+ + + + + | 02/18/ | Appointment | Rehabilitation | Erika Ernst, | | | 2019 | | | DO [address] [place] | | | | | | [place] [address] | | | | | | [phone] | | | | | | | | | | | | Genesis Ayon OT | | +--------+ + + + + | 02/25/ | Office | Primary Care | Erika Ernst, | | | 2019 | Visit | | DO [address] [place] | | | | | | [place] [address] | | | | | | [phone] | | | | | | | [...] | | | | | | [place] [address] | | | | | | [phone] | | | | | | | | +--------+ + + + + | 02/27/ | Appointment | Radiology | Dhara, | | | 2019 | | | DWAINE Ross [address] | | | | | | [address]TH [facility], | | | | | | [place] [address] | | | | | | [phone] | | | | | | | [...] [address] | | | | | | [place] [address] | | | | | | [phone] | | | | | | | [...] [place] | | | | | | [address] | | | | | | [phone] | | | | | | | [...] | | | | | [place] [address] | | | | | | [phone] | | | | | | | | | | | | Azul Yeboah, | | | | | | MD [address] | | | | | | [place] | | | | | | [place] [address] | | | | | | [phone] | | | | | | | [...] | | | | | | [place] [address] | | | | | | [phone] | | | | | | | | +--------+ + + + + documented as of this encounter Visit Diagnoses Not on filedocumented in this encounter"
--- OUTSIDE RECORDS SUMMARY | ~2020-02-18 | XMS | Encounter Summary ---
Demographics + + + | Address | [address] | | | [place] [address] | + + + | Home Phone [...] Team Providers + +------+ + | Care Wool Grower Name | Role | Phone | + [...] | Encounter | HOSPITAL XRAY 900 | AUTO RENTAL SUPERVISOR-ROAD CONTRACTOR [address] | index finger, | | | | [address] [place] [address] | initial encounter | | | | [place], [place] | [place] [address] | | | | | [address] | [phone] | | | | | [phone] | | | +--------+ + + + [...] | 04/12/20 | | | (VITAMIN D3) 65865 | mouth Once a week | tablet [...] | | | | | [place] [address] | | | | | | [phone] | | | | | | | | | | | | Julia Fisher, | | | | | | PT | | +--------+ + + + + | 02/18/ | Appointment | Rehabilitation | Erika Ernst, | | | 2019 | | | DO [address] | | | | | | [place] [address] | | | | | | [phone] | | | | | | | | | | | | Genesis Ayon, OT | | +--------+ + + + + | 02/25/ | Office | Primary Care | Erika Ernst, | | | 2019 | Visit | | DO [address] [place] | | | | | | [place] [address] | | | | | | [phone] | | | | | | | [...] | | | | | [place] [address] | | | | | | [phone] | | | | | | | | +--------+ + + + + | 02/27/ | Appointment | Radiology | Dhara, | | | 2019 | | | DWAINE Ross [address] | | | | | | [address] [place], | | | | | | [place] [address] | | | | | | [phone] | | | | | | | | +--------+ + + + + | 03/04/ | Appointment | Rehabilitation | Genesis Ayon OT | | 2019 | | | | | +--------+ + + + + | 03/09/ | Office | Orthopedic Surgery | Jeffrey Gandhi, | | | 2019 | Visit | | [address] [facility] | | | | | | [place] [address] | | | | | | [phone] | | | | | | | [...] [place] | | | | | | [address] | | | | | | [phone] | | | | | | | [...] | | | | | [place] [address] | | | | | | [phone] | | | | | | | | | | | | Azul Yeboah, | | | | | | [address] | | | | | | [place] | | | | | | [place] [address] | | | | | | [phone] | | | | | | | [...] | | | | | | [place] [address] | | | | | | [phone] | | | | | | | [...]
--- OUTSIDE RECORDS SUMMARY | ~2020-02-18 | XMS | Encounter Summary ---
Demographics + + + | Address | [address] | | | [place] [address] | + + + | Home Phone [...] Team Providers + +------+ + | Care Resources Representative Name | Role | Phone | [...] Description | +--------+--------+ + + + | 12/26/ | Refill | [place] [facility] | Emily Mittal DPM | Medication Refill | | 2019 | | HOSPITAL PODIATRY | [address] [place] | | | | | [address] [place] | F [place], [place] | | | | | [place], [place] | [address] | | | | | [address] | | | | | | [phone] | | | +--------+--------+ + + + [...] | | | | | [place] [address] | | | | | | [phone] | | | | | | | [...] [address] | | | | | | [phone] | | | | | | | | | | | | Genesis Ayon OT | | +--------+ + + + + | 02/25/ | Office | Primary Care | Erika Ernst, | | | 2019 | Visit | | DO [address] [place] | | | | | | [place] [address] | | | | | | [phone] | | | | | | | [...] | | | | | [place] [address] | | | | | | [phone] | | | | | | | | +--------+ + + + + | 02/27/ | Appointment | Radiology | Dhara, | | | 2019 | | | DWAINE Ross [address] | | | | | | [address] [facility], | | | | | | [place] [address] | | | | | | [phone] | | | | | | | [...] | | | | | [place] [address] | | | | | | [phone] | | | | | | | [...] [place] | | | | | | [address] | | | | | | [phone] | | | | | | | | +--------+ + + + + | 03/25/ | Appointment | Rehabilitation | Geensis Ayon OT | | | 2019 | | | | | +--------+ + + + + | 04/08/ | Office | Neurology | Erika Ernst, | | | 2019 | Visit | | DO [address] | | | | | | [place] [address] | | | | | | [phone] | | | | | | | | | | | | Azul Yeboah, | | | | | | MD [address] | | | | | | [place] | | | | | | [place] [address] | | | | | | [phone] | | | | | | | [...] | | | | [address] [place], | | | | | | [place] [address] | | | | | | [phone] | | | | | | | | +--------+ + + + + documented as of this encounter Visit Diagnoses Not on filedocumented in this encounter"
--- OUTSIDE RECORDS SUMMARY | ~2020-02-18 | XMS | Encounter Summary ---
Demographics + + + | Address | [address] | | | [place] [address] | + + + | Home Phone [...] Providers + +------+ + | Care Jewelry Bench Molder Name | Role | Phone | [...] | 2018 | | [facility] | MERCHANDISING DIRECTOR | asthma severity, | | | | [facility] [address] | | unspecified whether | | | | [address] [place], | | complicated, | | | | [place] [address] | | unspecified whether | | | | [phone] | | persistent (Primary | | | [...] | | | | | | [place] [address] | | | | | | [phone] | | | | | | | | | | | | Julia Fisher, | | | | | | PT | | +--------+ + + + + | 02/18/ | Appointment | Rehabilitation | Erika Ernst, | | | 2019 | | | DO [address] [place] | | | | | | [place] [address] | | | | | | [phone] | | | | | | | | | | | | Genesis Ayon, OT | | +--------+ + + + + | 02/25/ | Office | Primary Care | Erika Ernst, | | | 2019 | Visit | | DO [address] [place] | | | | | | [place] [address] | | | | | | [phone] | | | | | | | [...] | | | | | [place] [address] | | | | | | [phone] | | | | | | | | +--------+ + + + + | 02/27/ | Appointment | Radiology | Dhara, | | 2019 | | | DWAINE Ross [address] | | | | | | [address] [place], | | | | | | [place] [address] | | | | | | [phone] | | | | | | | [...] | | | | | [place] [address] | | | | | | [phone] | | | | | | | [...] [place] | | | | | | [address] | | | | | | [phone] | | | | | | | [...] | | | | | [place] [address] | | | | | | [phone] | | | | | | | | | | | | Azul Yeboah, | | | | | | [address] | | | | | | [place] [place] | | | | | | [place] [address] | | | | | | [phone] | | | | | | | [...] | | | | | | [place] [address] | | | | | | [phone] | | | | | | | | +--------+ + + + + documented as of this encounter Visit Diagnoses + + | Diagnosis | + + | Asthma, unspecified asthma severity, unspecified whether complicated, unspecified | | whether persistent - Primary | + + documented in this encounter"
--- OUTSIDE RECORDS SUMMARY | ~2020-02-18 | XMS | Encounter Summary ---
Demographics + + + | Address | [address] | | | [place] [address] | + + + | Home Phone [...] Team Providers + +------+ + | Care Target Man Name | Role | Phone | [...] | | | | [place] | [place] [address] | [place] | | | | | obesity due | Phone: | [phone] | | | | | to excess | [phone] | Phone: | | | | | calories | Fax: | [phone] | | | | | without | [phone] | Fax: | | | | | serious | | [phone] | | | | | comorbidity | [...] | | | | | | | DE MED NUTR | | | | | | | THER, 1ST, | | | | | | | INDIV, EA 15 | | | | | | | MIN DE MED | | | | | | [...] | | | | Procedures | [place] [address] | [place] [address] | | | | | PT EVAL | Phone: | Phone: | | | | | | [phone] | [phone] | | | | | | Fax: | Fax: | | | | | | [phone] | [phone] | +--------+ + + + + + [...] right | | 2019 | Visit | [facility] | DO [address] | knee (Primary Dx); | | | | MEDICAL [facility] [address] | [place] [address] | Essential | | | | [address] [place], | [phone] | hypertension; Class | | | | [place] [address] | | 3 severe obesity due | | | | [phone] | | to excess calories | | [...] is here today to FU on a [facility] visit for a fall at [employer] [employer] ( she does not work there) where she was eating at 10 PM and slipped on the floor sofía g on the right knee. States has some intermittent pain still but no redness, bruising or wea kness. She had normal Xray done per the [facility]. She would like PT to take a [...] pain of right knee * [place] [facility] 2. Essential hypertension * [place] [facility] - [facility] Ref[facility] 3. Class 3 severe obesity due to excess calories without serious comorbidity with body mass index (BMI) of 50.0 to 59.9 in adult (HCC) * [place] [facility] - [facility] Referral Plan: Have [...] | | | | | [place] [address] | | | | | | [phone] | | | | | | | | | | | | Julia Fisher, | | | | | | PT | | +--------+ + + + + | 02/18/ | Appointment | Rehabilitation | Erika Ernst, | | | 2019 | | | DO [address] [place] | | | | | | [place] [address] | | | | | | [phone] | | | | | | | | | | | | Genesis Ayon OT | | +--------+ + + + + | 02/25/ | Office | Primary Care | Erika Ernst, | | | 2019 | Visit | | DO [address] | | | | | | [place] [address] | | | | | | [phone] | | | | | | | [...] | | | | | [place] [address] | | | | | | [phone] | | | | | | | | +--------+ + + + + | 02/27/ | Appointment | Radiology | Dhara | | | 2019 | | | DWAINE Ross [address] | | | | | | [address] [place], | | | | | | [place] [address] | | | | | | [phone] | | | | | | | | +--------+ + + + + | 03/04/ | Appointment | Rehabilitation | Genesis Ayon OT | | | 2019 | | | | | +--------+ + + + + | 03/09/ | Office | Orthopedic Surgery | Jeffrey Gandhi, | | | 2019 | Visit | | [address] | | | | | | [place] [address] | | | | | | [phone] | | | | | | | [...] [place] | | | | | | [address] | | | | | | [phone] | | | | | | | [...] | | | | | [place] [address] | | | | | | [phone] | | | | | | | | | | | | Azul Yeboah, | | | | | | MD [address] | | | | | | [place] | | | | | | [place] [address] | | | | | | [phone] | | | | | | | [...] | | | | | | [place] [address] | | | | | | [phone] | | | | | | | [...] [facility]) | | + + +--------+ + + [...]
--- OUTSIDE RECORDS SUMMARY | ~2020-02-18 | XMS | Encounter Summary ---
Demographics + + + | Address | [address] | | | [place] [address] | + + + | Home Phone [...] Team Providers + +------+ + | Care Flow Machine Operator Name | Role | Phone [...] | | | | severe | [place] [address] | [place] | | | | | obesity due | Phone: | [address] | | | | | to excess | [phone] | Phone: | | | | | calories | Fax: | [phone] | | | | | without | [phone] | Fax: | | | | | serious | | [phone] | | | | | comorbidity | [...] | | | | | | | IN MED NUTR | | | | | | | THER, 1ST, | | | | | | | INDIV, EA 15 | | | | | | | MIN IN MED | | | | | | [...] | +--------+ + + + + | 01/17/ | Hospital | [place] [facility] | Erika Ernst, | Essential | | 2019 | Encounter | HOSPITAL NUTRITION | DO [address] | hypertension; Morbid | | | | SERVICES [address] | [place] [address] | obesity (HCC); BMI | | | | [place] | [phone] | 50.0-59.9, adult | | | | [address] | | (HCC); Dietary | | | | [phone] | Janel Webster, | counseling and | | | | | RD | surveillance | +--------+ + + + [...] | 11/26/19 | | | (VITAMIN D3) 47878 | mouth Once a week | tablet [...] encounter Progress Notes Janel Webster, RD - 01/17/2019 3:01 PM PDTAssessment: Dx:Obesity, HTN Pt reports stress from work but also with her health. Recently dx with menieres disease, do ctor rec she completely remove salt from her diet and was given medication- reports last nig ht she felt fatigued, sick and fast heart rate from prednisone. Pt has an appointment with Tavares Ernst this afternoon rec she talks to Dr. Ernst about this. Says she believes she tore her ligament in her wrist-seeing Dr. Noriega for this and reports ankle pain. She is seeing a PT per pt. Reports taking out grains/sugars from her diet this past week in order to help re duce sodium, B: smoothie L: salad with carrots, eggs and raspberry dressing D: salad. Drinks : water. Height:5'10 Current wt:376# Last RD visit wt: 375# BMI:54 Nutrition Diagnosis: Disordered eating pattern r/t restricting grains and salt products to help with menieres dx AEB pt report of feeling weak and sick since doing so this past week and food recall of no grains and limited salt intake. Intervention: Wt stable from last visit. Talked to pt about stress management and making sure has things she can do to relieve stress. Educated and provided material over 2g Na diet. Reviewed the n utrition facts label with pt and rec she watch serving size and watch sodium intake. Rec pt add whole grains back into her meals. We talked about the benefit of doing this. Pt seems to be improving on not skipping meals but she did not keep a food diary so difficult to know. Advised pt to follow a balanced meal plan recommendations from last visit and to keep a food diary for next visit. Pt receptive to education. Monitor/Evaluation: Will monitor wt trends, nutrition related labs and food diary. Scheduled for a revisit in 6 to 8 weeks. Time spent with pt: 20 mins Electronically Signed by: Janel Webster RD 01/17/2019 15:01 documented in this encounter Plan of Treatment +--------+ + + + + | Date | Type | Specialty | Care Team | Description | +--------+ + + + + | 02/18/ | Appointment | Rehabilitation | Erika Ernst, | | | 2019 | | | DO [address] [place] | | | | | | [place] [address] | | | | | | [phone] | | | | | | | | | | | | Julia Fisher, | | | | | | PT | | +--------+ + + + + | 02/18/ | Appointment | Rehabilitation | Erika Ernst, | | | 2019 | | | DO [address] [place] | | | | | | [place] [address] | | | | | | [phone] | | | | | | | | | | | | Genesis Ayon OT | | +--------+ + + + + | 02/25/ | Office | Primary Care | Erika Ernst, | | | 2019 | Visit | | DO [address] [place] | | | | | | [place] [address] | | | | | | [phone] | | | | | | | [...] | | | | | [place] [address] | | | | | | [phone] | | | | | | | | +--------+ + + + + | 02/27/ | Appointment | Radiology | Dhara | | | 2019 | | | DWAINE Ross [address] | | | | | | [address] [place], | | | | | | [place] [address] | | | | | | [phone] | | | | | | | | +--------+ + + + + | 03/04/ | Appointment | Rehabilitation | Genesis Ayon OT | | | 2019 | | | | | +--------+ + + + + | 03/09/ | Office | Orthopedic Surgery | Jeffrey Gandhi, | | | 2019 | Visit | | [place] [address] [facility] | | | | | | [place] [address] | | | | | | [phone] | | | | | | | [...] | | | | [address] [place] | | | | | | [place], [place] | | | | | | [address] | | | | | | [phone] | | | | | | | [...] [address] | | | | | | [phone] | | | | | | | | | | | | Azul Yeboah, | | | | | | MD [address] | | | | | | [place] | | | | | | [place] [address] | | | | | | [phone] | | | | | | | [...] | | | | | | [place] [address] | | | | | | [phone] | | | | | | | | +--------+ + + + + documented as of this encounter Visit Diagnoses + + | Diagnosis | + + | Essential hypertension Unspecified essential hypertension | + + | Morbid obesity (HCC) Morbid obesity | + + | BMI 50.0-59.9, adult (HCC) Body Mass Index 50.0-59.9, adult | + + | Dietary counseling and surveillance Dietary surveillance and counseling | + + documented in this encounter"
--- OUTSIDE RECORDS SUMMARY | ~2020-02-18 | XMS | Encounter Summary ---
Demographics + + + | Address | [address] | | | [place] [address] | + + + | Home Phone [...] Team Providers + +------+ + | Care Battery Container Inspector Name | Role | Phone | + +------+ + PCP | Unavailable | + +------+ + Encounter Details +--------+ + + + + | Date | Type | Department | Care Team | Description | +--------+ + + + + | 03/07/ | [facility] | Heike Rodriguez, | | | 2016 | Encounter | HOSPITAL EMERGENCY | ASSISTED LIVING COORDINATOR [address] | | | | | CENTER [address] | [place] | | | | | [place] | [address] | | | | | [address] | | | | | | [phone] | | | +--------+ + + + [...] | | 2020 | | | DO [address] [place] [address] | | | | | | [place], [place] [address] | | | | | | [phone] | | | | | | | | | | | | Julia Fisher, | | | | | | PT | | +--------+ + + + + | 02/18/ | Appointment | Rehabilitation | Erika Ernst, | | | 2019 | | | DO [address] [place] | | | | | | [place] [address] | | | | | | [phone] | | | | | | | | | | | | Genesis Ayon, SUSAN | | +--------+ + + + + | 02/25/ | Office | Primary Care | Erika Ernst, | | | 2019 | Visit | | DO [address] [place] | | | | | | [place] [address] | | | | | | [phone] | | | | | | | [...] [place] | | | | | | [place] [address] | | | | | | [phone] | | | | | | | | +--------+ + + + + | 02/27/ | Appointment | Radiology | Dhara, | | | 2019 | | | [address] | | | | | | [address] [place], | | | | | | [place] [address] | | | | | | [phone] | | | | | | | [...] | | | | | [place] [address] | | | | | | [phone] | | | | | | | [...] [place] | | | | | | [address] | | | | | | [phone] | | | | | | | [...] | | | | | [place] [address] | | | | | | [phone] | | | | | | | | | | | | Azul Yeboah, | | | | | | MD [address] | | | | | | [place] | | | | | | [place] [address] | | | | | | [phone] | | | | | | | [...] | | | | | | [place] [address] | | | | | | [phone] | | | | | | | [...] + | Mitchel, Yoni Results In - 08/09/2017 10:42 PM PST [...] | | and/or osteomyelitis, MRI recommended. Job#: [id number] Read By: ANJELICA | | Oliver CHAMEBRS MD Released By: ANJELICA CHAMBERS, MDDate: 03/08/2016 20:30 | |Right foot 01/22/2015, [...]
--- OUTSIDE RECORDS SUMMARY | ~2020-02-18 | XMS | Encounter Summary ---
Demographics + + + | Address | [address] | | | [place] [address] | + + + | Home Phone [...] Team Providers + +------+ + | Care Pipeline Technician Name | Role | Phone | [...] [place] | | | | | | [address] | | | | | | [phone] | | | +--------+ + + + [...] | | | | | [place] [address] | | | | | | [phone] | | | | | | | | | | | | Julia Fisher, | | | | | | PT | | +--------+ + + + + | 02/18/ | Appointment | Rehabilitation | Erika Ernst, | | | 2019 | | | DO [address] [place] | | | | | | [place] [address] | | | | | | [phone] | | | | | | | | | | | | Genesis Ayon OT | | +--------+ + + + + | 02/25/ | Office | Primary Care | Erika Ernst, | | | 2019 | Visit | | DO [address] [place] | | | | | | [place] [address] | | | | | | [phone] | | | | | | | [...] | | | | | [place] [address] | | | | | | [phone] | | | | | | | | +--------+ + + + + | 02/27/ | Appointment | Radiology | Dhara, | | | 2019 | | | [address] | | | | | | [address]TH [facility], | | | | | | [place] [address] | | | | | | [phone] | | | | | | | [...] | | | | | [place] [address] | | | | | | [phone] | | | | | | | [...] [place] | | | | | | [address] | | | | | | [phone] | | | | | | | [...] | | | | | [place] [address] | | | | | | [phone] | | | | | | | | | | | | Azul Yeboah, | | | | | | MD [address] | | | | | | [place] | | | | | | [place] [address] | | | | | | [phone] | | | | | | | [...] | | | | | | [place] [address] | | | | | | [phone] | | | | | | | | +--------+ + + + + documented as of this encounter Visit Diagnoses Not on filedocumented in this encounter"
--- OUTSIDE RECORDS SUMMARY | ~2020-02-18 | XMS | Encounter Summary ---
Demographics + + + | Address | [address] | | | [place] [address] | + + + | Home Phone [...] + + + | Author | [facility] | | | and [place] | + + + | Organization | [facility] [...] Team Providers + +------+ + | [employer] Name | Role | Phone | [...] [place] | | | | | [place] [address] | [address] | | | | | [phone] | [phone] | | | | | | | [...] | | | | | [place] [address] | | | | | | [phone] | | | | | | | | | | | | Julia Fisher, | | | | | | PT | | +--------+ + + + + | 02/18/ | Appointment | Rehabilitation | Erika Ernst, | | | 2019 | | | DO [address] | | | | | | [place] [address] | | | | | | [phone] | | | | | | | | | | | | [facility] | | +--------+ + + + + | 02/25/ | Office | Primary Care | Erika Ernst, | | | 2019 | Visit | | DO [address] | | | | | | [place] [address] | | | | | | [phone] | | | | | | | [...] | | | | | [place] [address] | | | | | | [phone] | | | | | | | | +--------+ + + + + | 02/27/ | Appointment | Radiology | Dhara, | | | 2019 | | | [address] | | | | | | [address] [facility], | | | | | | [place] [address] | | | | | | [phone] | | | | | | | [...] | | | | | [place] [address] | | | | | | [phone] | | | | | | | [...] [place] | | | | | | [address] | | | | | | [phone] | | | | | | | [...] | | | | | [place] [address] | | | | | | [phone] | | | | | | | | | | | | Azul Yeboah, | | | | | | MD [address] | | | | | | [place] [place] | | | | | | [place] [address] | | | | | | [phone] | | | | | | | [...] | | | | | | [place] [address] | | | | | | [phone] | | | | | | | | +--------+ + + + + documented as of this encounter Visit Diagnoses Not on filedocumented in this encounter"
--- OUTSIDE RECORDS SUMMARY | ~2020-02-18 | XMS | Encounter Summary ---
Demographics + + + | Address | [address] | | | [place] [address] | + + + | Home Phone [...] Team Providers + +------+ + | Care Hosiery Looper Name | Role | Phone | + [...] [address] [place] | [place] [address] | | | | | [place], [place] | [phone] | | | | | [address] | | | | | | [phone] | | | +--------+ + + + [...] | | | | | [place] [address] | | | | | | [phone] | | | | | | | | | | | | Julia Fisher, | | | | | | PT | | +--------+ + + + + | 02/18/ | Appointment | Rehabilitation | Erika Ernst, | | | 2019 | | | DO [address] | | | | | | [place] [address] | | | | | | [phone] | | | | | | | | | | | | [facility] OT | | +--------+ + + + + | 02/25/ | Office | Primary Care | Erika Ernst, | | | 2019 | Visit | | DO [address] | | | | | | [place] [address] | | | | | | [phone] | | | | | | | [...] | | | | | [place] [address] | | | | | | [phone] | | | | | | | | +--------+ + + + + | 02/27/ | Appointment | Radiology | Dhara, | | 2019 | | | [address] | | | | | [address] [place], | | | | | | [place] [address] | | | | | | [phone] | | | | | | | | +--------+ + + + + | 03/04/ | Appointment | Rehabilitation | Genesis Ayon OT | | | 2019 | | | | | +--------+ + + + + | 03/09/ | Office | Orthopedic Surgery | Jeffrey Gandhi, | | | 2019 | Visit | | [address] [facility] | | | | | | [place] [address] | | | | | | [phone] | | | | | | | [...] [place] | | | | | | [address] | | | | | | [phone] | | | | | | | [...] | | | | | [place] [address] | | | | | | [phone] | | | | | | | | | | | | Azul Yeboah, | | | | | | MD [address] | | | | | | [place] | | | | | | [place] [address] | | | | | | [phone] | | | | | | | [...] | | | | | | [place] [address] | | | | | | [phone] | | | | | | | [...]
--- OUTSIDE RECORDS SUMMARY | ~2020-02-18 | XMS | Encounter Summary ---
Demographics + + + | Address | [address] | | | [place] [address] | + + + | Home Phone [...] Team Providers + +------+ + | Care Sealing And Canceling Machine Operator Name | Role | Phone [...] | [place], [place] | [place] [address] | | | | | [address] | [phone] | | | | | [phone] | | | +--------+ + + + [...] | | | | | [place] [address] | | | | | | [phone] | | | | | | | | | | | | Julia Fisher, | | | | | | PT | | +--------+ + + + + | 02/18/ | Appointment | Rehabilitation | Erika Ernst, | | | 2019 | | | DO [address] | | | | | | [place] [address] | | | | | | [phone] | | | | | | | | | | | | Genesis Ayon OT | | +--------+ + + + + | 02/25/ | Office | Primary Care | Erika Ernst, | | | 2019 | Visit | | DO [address] | | | | | | [place] [address] | | | | | | [phone] | | | | | | | [...] | | | | | [place] [address] | | | | | | [phone] | | | | | | | | +--------+ + + + + | 02/27/ | Appointment | Radiology | Dhara, | | | 2019 | | | [address] | | | | [address] [place], | | | | | | [place] [address] | | | | | | [phone] | | | | | | | [...] [place] | | | | | | [place] [address] | | | | | | [phone] | | | | | | | [...] [place] | | | | | | [address] | | | | | | [phone] | | | | | | | [...] | | | | | [place] [address] | | | | | | [phone] | | | | | | | | | | | | Azul Yeboah, | | | | | | MD [address] | | | | | | [place] | | | | | | [place] [address] | | | | | | [phone] | | | | | | | [...] | | | | | | [place] [address] | | | | | | [phone] | | | | | | | | +--------+ + + + + documented as of this encounter Visit Diagnoses Not on filedocumented in this encounter"
--- OUTSIDE RECORDS SUMMARY | ~2020-02-18 | XMS | Encounter Summary ---
Demographics + + + | Address | [address] | | | [place] [address] | + + + | Home Phone [...] Providers + +------+ + | Care Plastic Roller Name | Role | Phone | [...] Description | +--------+--------+ + + + | 12/29/ | Refill | [place] [facility] | Erika Ernst, | Medication Refill | | 2020 | | [facility] | DO [address] | | | | | MEDICAL CLINIC [address] | [place] [address] | | | | | [address] [place], | [phone] | | | | | [place] [address] | | | | | | [phone] | | | +--------+--------+ + + + [...] | | | | | [place] [address] | | | | | | [phone] | | | | | | | | | | | | Julia Fisher, | | | | | | PT | | +--------+ + + + + | 02/18/ | Appointment | Rehabilitation | Erika Ernst, | | | 2019 | | | DO [address] [place] | | | | | | [place] [address] | | | | | | [phone] | | | | | | | | | | | | Genesis Ayon OT | | +--------+ + + + + | 02/25/ | Office | Primary Care | Erika Ernst, | | | 2019 | Visit | | DO [address] | | | | | | [place] [address] | | | | | | [phone] | | | | | | | [...] | | | | | [place] [address] | | | | | | [phone] | | | | | | | | +--------+ + + + + | 02/27/ | Appointment | Radiology | Dhara, | | | 2019 | | | [address] | | | | | | [address]TH [facility], | | | | | | [place] [address] | | | | | | [phone] | | | | | | | [...] [place] | | | | | | [place] [address] | | | | | | [phone] | | | | | | | [...] [place] | | | | | | [address] | | | | | | [phone] | | | | | | | [...] | | | | | [place] [address] | | | | | | [phone] | | | | | | | | | | | | Azul Yeboah, | | | | | | MD [address] | | | | | | [place] | | | | | | [place] [address] | | | | | | [phone] | | | | | | | [...] | | | | | | [place] [address] | | | | | | [phone] | | | | | | | | +--------+ + + + + documented as of this encounter Visit Diagnoses Not on filedocumented in this encounter"
--- OUTSIDE RECORDS SUMMARY | ~2020-02-18 | XMS | Encounter Summary ---
Demographics + + + | Address | [address] | | | [place] [address] | + + + | Home Phone [...] Team Providers + +------+ + | Care Spanish Medical Interpreter Name | Role | Phone | + [...] Pressure | | 2019 | | [facility] | [facility] | | | | | MEDICAL CLINIC [address] | | | | | | [address]TH [facility] [place], | | | | | | [place] [address] | | | | | | [phone] | | | +--------+ + + + [...] | 2019 | | | DO [address] | | | | | | [place] [address] | | | | | | [phone] | | | | | | | | | | | | Julia Fisher, | | | | | | PT | | +--------+ + + + + | 02/18/ | Appointment | Rehabilitation | Erika Ernst, | | | 2019 | | | DO [address] | | | | | | [place] [address] | | | | | | [phone] | | | | | | | | | | | | Genesis Ayon OT | | +--------+ + + + + | 02/25/ | Office | Primary Care | Erika Ernst, | | | 2019 | Visit | | DO [address] | | | | | | [place] [address] | | | | | | [phone] | | | | | | | [...] | | | | | [place] [address] | | | | | | [phone] | | | | | | | | +--------+ + + + + | 02/27/ | Appointment | Radiology | Dhara, | | | 2019 | | | [address] | | | | | | [address] [place], | | | | | | [place] [address] | | | | | | [phone] | | | | | | | [...] | | | | [place] [address] | | | | | | [phone] | | | | | | | [...] [place] | | | | | | [address] | | | | | | [phone] | | | | | | | [...] | | | | | [place] [address] | | | | | | [phone] | | | | | | | | | | | | Azul Yeboah, | | | | | | MD [address] | | | | | | [place] | | | | | | [place] [address] | | | | | | [phone] | | | | | | | [...] | | | | | | [place] [address] | | | | | | [phone] | | | | | | | | +--------+ + + + + documented as of this encounter Visit Diagnoses Not on filedocumented in this encounter"
--- OUTSIDE RECORDS SUMMARY | ~2020-02-18 | XMS | Encounter Summary ---
Demographics + + + | Address | [address] | | | [place] [address] | + + + | Home Phone [...] Team Providers + +------+ + | Care Ironworker Apprentice Name | Role | Phone | + +------+ + PCP | Unavailable | + +------+ + Encounter Details +--------+ + + + + | Date | Type | Department | Care Team | Description | +--------+ + + + + | 12/23/ | Hospital | [place] [facility] | Heather Yip, | | | 2016 | Encounter | HOSPITAL NURSERY | COMMERCIAL KITCHEN SERVICE TECHNICIAN [address] | | | | | [address] [place] | [place] [address] | | | | | [place], [place] | [phone] | | | | | [address] | | | | | | [phone] | | | +--------+ + + + [...] | | | | | [place] [address] | | | | | | [phone] | | | | | | | | | | | | Julia Fisher, | | | | | | PT | | +--------+ + + + + | 02/18/ | Appointment | Rehabilitation | Erika Ernst, | | | 2019 | | | DO [address] | | | | | | [place] [address] | | | | | | [phone] | | | | | | | | | | | | [facility] OT | | +--------+ + + + + | 02/25/ | Office | Primary Care | Erika Ernst, | | | 2019 | Visit | | DO [address] | | | | | | [place] [address] | | | | | | [phone] | | | | | | | [...] | | | | | [place] [address] | | | | | | [phone] | | | | | | | | +--------+ + + + + | 02/27/ | Appointment | Radiology | Dhara, | | | 2019 | | | [address] | | | | | | 4TH [facility], | | | | | | [place] [address] | | | | | | [phone] | | | | | | | | +--------+ + + + + | 03/04/ | Appointment | Rehabilitation | Genesis Ayon OT | | | 2019 | | | | | +--------+ + + + + | 03/09/ | Office | Orthopedic Surgery | Jeffrey Gandhi, | | 2019 | Visit | | [address] | | | | | | [place] [address] | | | | | | [phone] | | | | | | | [...] [place] | | | | | | [address] | | | | | | [phone] | | | | | | | [...] | | | | | [place] [address] | | | | | | [phone] | | | | | | | | | | | | Azul Yeboah, | | | | | | MD [address] | | | | | | [place] | | | | | | [place] [address] | | | | | | [phone] | | | | | | | [...] | | | | | | [place] [address] | | | | | | [phone] | | | | | | | | +--------+ + + + + documented as of this encounter Visit Diagnoses Not on filedocumented in this encounter"
--- OUTSIDE RECORDS SUMMARY | ~2020-02-18 | XMS | Encounter Summary ---
Demographics + + + | Address | [address] | | | [place] [address] | + + + | Home Phone [...] Team Providers + +------+ + | Care Explosive Ordnance Technician Name | Role | Phone | [...] | [place], [place] | [place] [address] | | | | | [address] | [phone] | | | | | [phone] | | | +--------+ + + + [...] | | | | | [place] [address] | | | | | | [phone] | | | | | | | [...] [address] | | | | | | [phone] | | | | | | | | | | | | Genesis Ayon OT | | +--------+ + + + + | 02/25/ | Office | Primary Care | Erika Ernst, | | | 2019 | Visit | | DO [address] | | | | | | [place] [address] | | | | | | [phone] | | | | | | | [...] | | | | | [place] [address] | | | | | | [phone] | | | | | | | | +--------+ + + + + | 02/27/ | Appointment | Radiology | Dhara, | | | 2019 | | | [address] | | | | | | 4TH [facility], | | | | | | [place] [address] | | | | | | [phone] | | | | | | | | +--------+ + + + + | 03/04/ | Appointment | Rehabilitation | Genesis Ayon OT | | | 2019 | | | | | +--------+ + + + + | 03/09/ | Office | Orthopedic Surgery | Jeffrey Gandhi, | | | 2019 | Visit | | [address] | | | | | | [place] [address] | | | | | | [phone] | | | | | | | [...] [place] | | | | | | [address] | | | | | | [phone] | | | | | | | [...] | | | | | [place] [address] | | | | | | [phone] | | | | | | | | | | | | Azul Yeboah, | | | | | | MD [address] | | | | | | [place] | | | | | | [place] [address] | | | | | | [phone] | | | | | | | [...] | | | | | | [place] [address] | | | | | | [phone] | | | | | | | | +--------+ + + + + documented as of this encounter Visit Diagnoses Not on filedocumented in this encounter"
--- OUTSIDE RECORDS SUMMARY | ~2020-02-18 | XMS | Encounter Summary ---
Demographics + + + | Address | [address] | | | [place] [address] | + + + | Home Phone [...] Team Providers + +------+ + | Care Phone Operator Name | Role | Phone | [...] Medication Follow-up | | 2019 | | [facility] | DO [address] | (Trazadone) | | | | MEDICAL CLINIC [address] | [facility] [place] [address] | | | | | [address] [facility], | [phone] | | | | | [place] [address] | | | | | | [phone] | | | +--------+ + + + [...] | | | | | [place] [address] | | | | | | [phone] | | | | | | | | | | | | Julia Fisher, | | | | | | PT | | +--------+ + + + + | 02/18/ | Appointment | Rehabilitation | Erika Ernst, | | | 2019 | | | DO [address] [place] | | | | | | [place] [address] | | | | | | [phone] | | | | | | | | | | | | Genesis Ayon, OT | | +--------+ + + + + | 02/25/ | Office | Primary Care | Erika Ernst, | | | 2019 | Visit | | DO [address] [place] | | | | | | [place] [address] | | | | | | [phone] | | | | | | | [...] | | | | | [place] [address] | | | | | | [phone] | | | | | | | | +--------+ + + + + | 02/27/ | Appointment | Radiology | Dhara, | | | 2019 | | | [address]WA[address] | | | | | | 4TH [facility], | | | | | | [place] [address] | | | | | | [phone] | | | | | | | [...] HOSPITAL | | | | | | [place] [address] | | | | | | [phone] | | | | | | | [...] [place] | | | | | | [address] | | | | | | [phone] | | | | | | | [...] | | | | | [place] [address] | | | | | | [phone] | | | | | | | | | | | | Azul Yeboah, | | | | | | MD [address] | | | | | | [place] | | | | | | [place] [address] | | | | | | [phone] | | | | | | | [...] | | | | | | [place] [address] | | | | | | [phone] | | | | | | | | +--------+ + + + + documented as of this encounter Visit Diagnoses Not on filedocumented in this encounter"
--- OUTSIDE RECORDS SUMMARY | ~2020-02-18 | XMS | Encounter Summary ---
Demographics + + + | Address | [address] | | | [place] [address] | + + + | Home Phone [...] Providers + +------+ + | Care Associate Sales Manager Name | Role | Phone | [...] | | | of left | [place] [address] | [place] [address] | | | | | ankle, | Phone: | Phone: | | | | | initial | [phone] | [phone] | | | | | encounter | Fax: | Fax: | | | | | Procedures | [phone] | [phone] | | | | | PT TREAT [...] [address] [place] | [place] [address] | encounter (Primary | | | | [place], [place] | [phone] | Dx) | | | | [address] | | | | | | [phone] | Nick Barrios I, PT | | [...] might be different fro m the original. [facility] [address] [place] [address] Physical Therapy Daily Treatment Note Date: 09/14/2018 [...] in favor of SL heel raise with TELEVISION PRODUCER. ONGOING: SLS on even surface 3x30 seconds [...] SLS eyes closed 1x30 seconds, 2x1 minute TELEVISION PRODUCER grab bar, Oanh disc SLS 1x30 seconds, 1x1 minute TELEVISION PRODUCER grab bar as needed, Tandem gait forward/backwar [...] | | | | | [place] [address] | | | | | | [phone] | | | | | | | | | | | | Julia Fisher, | | | | | | PT | | +--------+ + + + + | 02/18/ | Appointment | Rehabilitation | Erika Ernst, | | | 2019 | | | DO [address] [place] | | | | | | [place] [address] | | | | | | [phone] | | | | | | | | | | | | Genesis Ayon OT | | +--------+ + + + + | 02/25/ | Office | Primary Care | Erika Ernst, | | | 2019 | Visit | | DO [address] [place] [address] | | | | | | [place] [address] | | | | | | [phone] | | | | | | | [...] | | | | | [place] [address] | | | | | | [phone] | | | | | | | | +--------+ + + + + | 02/27/ | Appointment | Radiology | Dhara, | | | 2019 | | | [address] | | | | | | [address] [place], | | | | | | [place] [address] | | | | | | [phone] | | | | | | | | +--------+ + + + + | 03/04/ | Appointment | Rehabilitation | Genesis Ayon OT | | | 2019 | | | | | +--------+ + + + + | 03/09/ | Office | Orthopedic Surgery | Jeffrey Gandhi, | | | 2019 | Visit | | [address] | | | | | | [place] [address] | | | | | | [phone] | | | | | | | [...] [place] | | | | | | [address] | | | | | | [phone] | | | | | | | [...] | | | | | [place] [address] | | | | | | [phone] | | | | | | | | | | | | Azul Yeboah, | | | | | | [address] | | | | | | [place] | | | | | | [place] [address] | | | | | | [phone] | | | | | | | [...] | | | | | | [place] [address] | | | | | | [phone] | | | | | | | | +--------+ + + + + documented as of this encounter Visit Diagnoses + + | Diagnosis | + + | Sprain of left ankle, subsequent encounter - Primary | + + documented in this encounter
--- OUTSIDE RECORDS SUMMARY | ~2020-02-18 | XMS | Encounter Summary ---
Demographics + + + | Address | [address] | | | [place] [address] | + + + | Home Phone [...] Team Providers + +------+ + | Care Asthma Educator Name | Role | Phone | [...] | | | l allergies | [place] [address] | [place], [place] | | | | | | Phone: | [phone] Phone: | | | | | | [phone] | [phone] | | | | | | Fax: | Fax: | | | | | | [phone] | [phone] | +--------+ + + + + + [...] | MEDICAL CLINIC [address] | [place] [address] | (Primary Dx); | | | | [address] [place], | [phone] | Anxiety; Depression, | | | | [place] [address] | | unspecified | | | | [phone] | | depression type; | | | [...] anxiety as well. She did see the allergiest/hydraulic bull riveter operator and had allergy testing and symbicort was [...] | | | | | [place] [address] | | | | | | [phone] | | | | | | | | | | | | Julia Fisher, | | | | | | PT | | +--------+ + + + + | 02/18/ | Appointment | Rehabilitation | Erika Ernst, | | 2019 | | | DO [address] [place] | | | | | | [place] [address] | | | | | | [phone] | | | | | | | | | | | | Genesis Ayon, SUSAN | | +--------+ + + + + | 02/25/ | Office | Primary Care | Erika Ernst, | | | 2019 | Visit | | DO [address] [place] [address] | | | | | | [place] [address] | | | | | | [phone] | | | | | | | [...] | | | | | [place] [address] | | | | | | [phone] | | | | | | | | +--------+ + + + + | 02/27/ | Appointment | Radiology | Dhara, | | | 2019 | | | [address] | | | | | | [address] [place], | | | | | | [place] [address] | | | | | | [phone] | | | | | | | [...] | | | | | [place] [address] | | | | | | [phone] | | | | | | | [...] [place] | | | | | | [address] | | | | | | [phone] | | | | | | | [...] | | | | | [place] [address] | | | | | | [phone] | | | | | | | | | | | | Azul Yeboah, | | | | | | MD [address] | | | | | | [place] | | | | | | [place] [address] | | | | | | [phone] | | | | | | | [...] | | | | | | [place] [address] | | | | | | [phone] | | | | | | | [...]
--- OUTSIDE RECORDS SUMMARY | ~2020-02-18 | XMS | Encounter Summary ---
Demographics + + + | Address | [address] | | | [place] [address] | + + + | Home Phone [...] Team Providers + +------+ + | Care Meter Repairer Helper Name | Role | Phone | + +------+ + PCP | Unavailable | + +------+ + Encounter Details +--------+ + + + + | Date | Type | Department | Care Team | Description | +--------+ + + + + | 09/18/ | [facility] | Bhavin Stroud | | | 2016 | Encounter | HOSPITAL EMERGENCY | DO [address] | | | | | [address] | [address] [place] | | | | | [place], [place] | [place] [address] | | | | | [address] | [phone] | | | | | [phone] | | | +--------+ + + + [...] 2019 | | | DO [facility] | | | | | | [place], [place] [address] | | | | | | [phone] | | | | | | | | | | | | Julia Fisher, | | | | | | PT | | +--------+ + + + + | 02/18/ | Appointment | Rehabilitation | Eirka Ernst, | | | 2019 | | | DO [address] | | | | | | [place] [address] | | | | | | [phone] | | | | | | | | | | | | Genesis Ayon, SUSAN | | +--------+ + + + + | 02/25/ | Office | Primary Care | Erika Ernst, | | | 2019 | Visit | | DO [address] [place] | | | | | | [place] [address] | | | | | | [phone] | | | | | | | [...] | | | | | [place] [address] | | | | | | [phone] | | | | | | | | +--------+ + + + + | 02/27/ | Appointment | Radiology | Dhara, | | | 2019 | | | [address] | | | | | | [address] [place], | | | | | | [place] [address] | | | | | | [phone] | | | | | | | [...] | | | | | [place] [address] | | | | | | [phone] | | | | | | | [...] [place] | | | | | | [address] | | | | | | [phone] | | | | | | | [...] | | | | | [place] [address] | | | | | | [phone] | | | | | | | | | | | | Azul Yeboah, | | | | | | MD [address] | | | | | | [place] | | | | | | [place] [address] | | | | | | [phone] | | | | | | | [...] | | | | | | [place] [address] | | | | | | [phone] | | | | | | | | +--------+ + + + + documented as of this encounter Visit Diagnoses Not on filedocumented in this encounter"
--- OUTSIDE RECORDS SUMMARY | ~2020-02-18 | XMS | Encounter Summary ---
Demographics + + + | Address | [address] | | | [place] [address] | + + + | Home Phone [...] Team Providers + +------+ + | Care Occupational Therapist'S Assistant Name | Role | Phone | [...] | | | | s (de | [place], [place] | [place] [address] | | | | | quervain) | [address] | Phone: | | | | | Pain in | Phone: | [phone] | | | | | right wrist | [phone] | Fax: | | | | | Procedures | Fax: | [phone] | | | | | OT TREAT | [phone] | | +--------+--------+ + + + + Encounter Details +--------+ + + + + | Date | Type | Department | Care Team | Description | +--------+ + + + + | 08/28/ | Hospital | [facility] | Jeffrey Gandhi, | Radial styloid | | 2018 | Encounter | HOSPITAL THERAPY OT | [address] | tenosynovitis | | | | [address] | [place] [address] | (Primary Dx); Right | | | | [place] | [phone] | wrist pain | | | | [address] | | | | | | [phone] | Milla Gracia, OT | | +--------+ [...] Progress Notes Crew, Milla Bella, OT - 08/29/2018 12:28 PM PST [facility] THERAPY OT [address] [place] [address] Occupational Therapy PROGRESS NOTE Date: 08/28/2018 Patient Information Patient Name: Andrea Suh Date of : 1990 Age: 28 y.o. History Encounter Diagnoses Code Name Primary? M65.4 Radial styloid tenosynovitis Yes M25.531 Right wrist pain Date of Onset: 07/20/2018 Referring Provider: Jeffrey Gandhi MD Objective Pain Assessment: Pain/Comfort Presence Of Pain: complains of pain/discomfort Preferred Pain Scale >=8 yrs: number (Numeric Rating Pain Scale) Pain Body Location - Side: Right Pain Body Location: wrist Pain Radiation to: hand, right Pain Rating (0-10): Rest: 5 Pain Rating (0-10): Activity: 7 Pain Duration: Pt reporting that her pain is a 5/10 at rest at nightime, is slightly better during the day (4/10), but is still significantly painful with activity (7/10) Standardized Tests: QuickDASH (QD) Open a tight or new jar: 3 - Moderate Difficulty Do heavy oracle brm developer: 4 - Severe Difficulty Carry a shopping bag or briefcase: 5 - Unable Wash your back: 3 - Moderate Difficulty Use a Knife to cut food: 3 - Moderate Difficulty Recreational Activities which impact the UE: 5 - Unable Interfered with Social Activities: 3 - Moderately Limit Work or Regular Daily Activities: 3 - Moderately Limited Arm, shoulder or hand pain: 3 - Moderate Tingling in arm, shoulder or hand: 4 - Severe Difficulty Sleeping due to pain in UE: 3 - Moderate Difficulty QuickDASH Mean Score (Calculated): 3.55 QuickDASH Disability/Symptom Score (Calculated): 63.64 QuickDASH Goal: The pt will have increased functional use of her right hand indicated by a QuickDASH score of 15% with pain no greater than 2/10 with daily activities by discharge QuickDASH Goal Status: 08/28/18 PN: IN PROGRESS: QuickDASH score is 64% and pain ranges fro m 3/10-6/10 Range of Motion (measured in degrees): Hand Dominance Hand Dominance: right Hand Dominance: right Upper Extremities Upper Extremities Note: ROM completed until 4/10 pain level reached on today's date LUE AROM (degrees) L Forearm Pron: 80 L Forearm Sup: 65 L Wrist Flex: 70 L Wrist Ext : 66 L Wrist Radial Deviation : 20 L Wrist Ulnar Deviation: 30 Left Hand AROM L Thumb MCP extension - flexion: 53 L Thumb IP extension - flexion: 35 RUE AROM (degrees) R Forearm Pron: 80 R Forearm Sup: 65 R Wrist Flex: 49 R Wrist Ext : 55 R Wrist Radial Deviation: 13 R Wrist Ulnar Deviation: 12 Right hand AROM R Thumb MCP Extension Flexion: 44 R Thumb IP Extension - Flexion: 62 (pt completing this measurement with 4/10 pain during se ssion) Strength: Left Hand Strength - Hotel And Dining Room Cashier (lbs) L Hotel And Dining Room Cashier Trial 1: 60 L Hotel And Dining Room Cashier Trial 2: 55 L Hotel And Dining Room Cashier Trial 3: 48 L Hotel And Dining Room Cashier Trial Average: 54.33 L Three Jaw Payam Trial 1: 10 L Three Jaw Payam Trial 2: 13 L Three Jaw Payam Trial 3: 11 L Three Jaw Payam Trial Average: 11.33 L Lateral Pinch Trial 1: 16 L Lateral Pinch Trial 2: 17 L Lateral Pinch Trial 3: 17.5 L Lateral Pinch Trial Average: 16.83 Right Hand Strength - Hotel And Dining Room Cashier (lbs) R Hotel And Dining Room Cashier Trial 1: 26 R Hotel And Dining Room Cashier Trial 2: 24 R Hotel And Dining Room Cashier Trial 3: 23 R Hotel And Dining Room Cashier Trial Average: 24.33 R Three Jaw Payam Trial 1: 8 R Three Jaw Payam Trial 2: 8 R Three Jaw Payam Trial 3: 9 R Three Jaw Payam Trial Average: 8.33 R Lateral Pinch Trial 1: 10 R Lateral Pinch Trial 2: 11 R Lateral Pinch Trial 3: 10 R Lateral Pinch Trial Average: 10.33 Today's Treatment Patient Name: Andrea Henaonanci/: 1990/ Start Time: 1700 Stop time: 1749 Duration: 49 minutes Timed Treatment Codes: 45 minutes # of OT Visits: 5 Visit Summary: See PN for details on pt's progress during past 30 days with OP OT services Next Visit: isometric wrist exercises, increasing YANES of wrist Interventions HEP : Cont: HEP established with demonstration, return demonstration and written instructio ns provided. Added thumb to DIP/IP/MP to 5th finger opposition with 1 cm object. Gentle scar desensitization with various rough and soft textures OT Interventions: Intervention #4, Intervention #5 OT INTERVENTION 4: Manual (25 minutes): With parrafin wax applied, completed PROM wrist str etches. Light scar massage near radial styloid process. Application of kinesiotape to facili ate radial deviation due to pt c/o pain with ulnar deviation and waking up frequently with p ain at night. Pt states that she has an allergy to medical adhesive. Allergenic tape used on pt's R wrist with no adverse reactions noted during/ following application. Pt verbalizes u nderstanding to doff tape if she experiences any kind of itchieness, redness or irritation. OT INTERVENTION 5: TFA (20 minutes): Objective measurements (ROM, transportation driver strength) and discus tunde of limitations to activities r/t pain and decreased strength and ROM. 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 strength, but is still experiencin g activity [...] in 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, and transportation driver and pinch weakness in the right [...] daily activities by discharge QuickDASH Goal Status: 08/28/18 PN: IN PROGRESS: QuickDASH score is 64% and pain ranges fro m 3/10-6/10 OP OT Goals Goal 1: The pt will have right wrist and thumb AROM to 90% of the left by discharge Goal 1 Status: At PN (08/28/18) PARTIALLY MET FOR WRIST YANES, MET FOR THUMB: right wrist YANES is 82% (226/331) of the left and right thumb composite MP and IP flexion is 100%+ (106/88) of the left Goal 2: The pt will have right transportation driver strength of 50 lbs by discharge Goal 2 Status: At PN (08/28/18) PARTIALLY MET. Right transportation driver: 24, and left is 54 lbs Goal 3: The pt will have increased right pinch strength to 13 lbs by discharge Goal 3 Status: At PN (08/28/18) PARTIALLY MET: Right pinch continues to be around 9 lbs, le ft was 16-18 lbs Goal 4: The pt will be independent and compliant with HEP Goal 4 Status: At PN (08/28/18) PARTIALLY MET: pt reports and demonstrates progress with HE P thus far Electronically signed by: Milla Gracia OT, 08/29/2018 12:28 Patient Name: Andrea King Angeli/: 1990/ rew, Milla Bella OT - 1 10/29/2017 8:47 AM PST Patient Information Patient: Andrea Suh Ordering Physician: Jeffrey Gandhi MD Claim #: [id number] Date of Injury: 07/20/2018 (Date of surgery) Visits since the Date of Injury Date First Treated: 08/07/2018 Total number of visits: 5 Last Period's Progress Information Period (not required for initial evaluation) From: 08/07/2018 To: 08/28/2018 Number of visits for the above period: 5 Number of missed appointments for the above period: 0 Diagnosis Information Current Pain: Current Pain Assessment: Pain/Comfort Presence Of Pain: complains of pain/discomfort Preferred Pain Scale >=8 yrs: number (Numeric Rating Pain Scale) Pain Body Location - Side: Right Pain Body Location: wrist Pain Radiation to: hand, right Pain Rating (0-10): Rest: 5 Pain Rating (0-10): Activity: 7 Pain Duration: Pt reporting that her pain is a 5/10 at rest at nightime, is slightly better during the day (4/10), but is still significantly painful with activity (7/10) Diagnosis: Encounter Diagnoses Code Name Primary? 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 Dates: Previous exam: 08/07/2018 Current exam: 08/28/2018 ROM / Strength ROM at last Assessment Range of Motion (measured in degrees): Hand Dominance: right Upper Extremities LUE AROM (degrees) L Forearm Pron: 65 [...] R Thumb IP Extension - Flexion: 22 (pt completing this measurement with 4/10 pain during se ssion) L Thumb MCP Extension Flexion: 53 L Thumb IP Extension - Flexion: 35 Current ROM Range of Motion (measured in degrees): Hand Dominance: right Upper Extremities Upper Extremities Note: ROM completed until 4/10 pain level reached on today's date LUE AROM (degrees) L Forearm Pron: 80 L Forearm Sup: 65 L Wrist Flex: 70 L Wrist Ext : 66 L Wrist Radial Deviation : 20 L Wrist Ulnar Deviation: 30 Left Hand AROM L Thumb MCP extension - flexion: 53 L Thumb IP extension - flexion: 35 RUE AROM (degrees) R Forearm Pron: 80 R Forearm Sup: 65 R Wrist Flex: 49 R Wrist Ext : 55 R Wrist Radial Deviation: 13 R Wrist Ulnar Deviation: 12 Right hand AROM R Thumb MCP Extension Flexion: 44 R Thumb IP Extension - Flexion: 62 (pt completing this measurement with 4/10 pain during se ssion) L Thumb MCP Extension Flexion: 53 L Thumb IP Extension - Flexion: 35 Strength at last Assessment Left Hand Strength - Hotel And Dining Room Cashier (lbs) L Hotel And Dining Room Cashier Trial 1: 60 L Hotel And Dining Room Cashier Trial 2: 52 L Hotel And Dining Room Cashier Trial 3: 55 L Hotel And Dining Room Cashier Trial Average: 55.67 L Three Jaw Payam Trial 1: 13 L Three Jaw Payam Trial 2: 13 L Three Jaw Payam Trial 3: 14 L Three Jaw Payam Trial Average: 13.33 L Lateral Pinch Trial 1: 17 L Lateral Pinch Trial 2: 17 L Lateral Pinch Trial 3: 18 L Lateral Pinch Trial Average: 17.33 Right Hand Strength - Hotel And Dining Room Cashier (lbs) R Hotel And Dining Room Cashier Trial 1: 15 R Hotel And Dining Room Cashier Trial 2: 24 R Hotel And Dining Room Cashier Trial 3: 21 R Hotel And Dining Room Cashier Trial Average: 20 R Three Jaw Payam Trial 1: 8 R Three Jaw Payam Trial 2: 10 R Three Jaw Payam Trial 3: 9 R Three Jaw Payam Trial Average: 9 R Lateral Pinch Trial 1: 8 R Lateral Pinch Trial 2: 10 R Lateral Pinch Trial 3: 11 R Lateral Pinch Trial Average: 9.67 Current Strength Left Hand Strength - Hotel And Dining Room Cashier (lbs) L Hotel And Dining Room Cashier Trial 1: 60 L Hotel And Dining Room Cashier Trial 2: 55 L Hotel And Dining Room Cashier Trial 3: 48 L Hotel And Dining Room Cashier Trial Average: 54.33 L Three Jaw Payam Trial 1: 10 L Three Jaw Apyam Trial 2: 13 L Three Jaw Payam Trial 3: 11 L Three Jaw Payam Trial Average: 11.33 L Lateral Pinch Trial 1: 16 L Lateral Pinch Trial 2: 17 L Lateral Pinch Trial 3: 17.5 L Lateral Pinch Trial Average: 16.83 Right Hand Strength - Hotel And Dining Room Cashier (lbs) R Hotel And Dining Room Cashier Trial 1: 26 R Hotel And Dining Room Cashier Trial 2: 24 R Hotel And Dining Room Cashier Trial 3: 23 R Hotel And Dining Room Cashier Trial Average: 24.33 R Three Jaw Payam Trial 1: 8 R Three Jaw Payam Trial 2: 8 R Three Jaw Payam Trial 3: 9 R Three Jaw Payam Trial Average: 8.33 R Lateral Pinch Trial 1: 10 R Lateral Pinch Trial 2: 11 R Lateral Pinch Trial 3: 10 R Lateral Pinch Trial Average: 10.33 Proposed Treatment Dates for Majoris Review Proposed treatments date: 08/28/18 to 09/27/18 Plan Date of Onset: 07/20/2018 Start of Care Date: 08/07/2018 Requested # of Visits: 24 for 12 weeks Certification From: 08/07/18 Certification To: 10/30/18 Treatment Plan/Interventions Patient and/or family has indicated understanding of treatment needs and actively participa everardo in the creation of this plan for care. Plan Date of Onset: 07/20/2018 Start of Care Date: 08/07/2018 Requested # of Visits: 24 visits 2x/week for 12 weeks Certification From: 08/07/2018 Certification To: 10/30/2018 Treatment Plan/Interventions OT [id number] - Therapeutic [id number] - Therapeutic [id number] - Self Care/Ho me [id number] - Manual [id number] - Orthotic/Prosthetic [id number] - [id number] 34 - Contrast [id number] - Paraffin BathSplinting Moist heat, cold therapy Patient and/or family has indicated understanding of treatment needs and actively participa everardo in the creation of this plan for care. Brief narrative of progress to date, functional/objective limitation to be address in the p roposed treatment period, and objective or functional gain achieved to justify continuing th erapy (if not initial request) 08/29/2018: PROGRESS NOTE: Andrea is a 28 [...] pt has made progress with her R transportation driver strength, but is still experiencin g activity [...] level of function and return to work. Prognosis of returning to independent self-management in the proposed treatment: Please cho ose one (Likely / Unlikely / Guarded/ N/A): LIKELY Prognosis of returning to prior occupation in the proposed treatment period: Please choose one (Likely / Unlikely / Guarded/ N/A): LIKELY Comments, including work recommendations: Pt currently unable to meet physical demands of her work position and has not returned to w ork. Pt has good rehab potential to return to work with further skilled OT OP services. Electronically signed by: Milla Gracia OT, 08/29/2018 9:04 documented in this enc ounter Plan of Treatment +--------+ + + + + | Date | Type | Specialty | Care Team | Description | +--------+ + + + + | 02/18/ | Appointment | Rehabilitation | Erika Ernst, | | | 2019 | | | DO [address] | | | | | | [place] [address] | | | | | | [phone] | | | | | | | | | | | | Julia Fisher, | | | | | | PT | | +--------+ + + + + | 02/18/ | Appointment | Rehabilitation | Erika Ernst, | | | 2019 | | | DO [address] | | | | | | [place] [address] | | | | | | [phone] | | | | | | | | | | | | Genesis Ayon OT | | +--------+ + + + + | 02/25/ | Office | Primary Care | Erika Ernst, | | | 2019 | Visit | | DO [address] | | | | | | [place] [address] | | | | | | [phone] | | | | | | | [...] | | | | | | [place] [address] | | | | | | [phone] | | | | | | | | +--------+ + + + + | 02/27/ | Appointment | Radiology | Dhara, | | 2019 | | | DWAINE Ross [address] | | | | | | [address] [facility], | | | | | | [place] [address] | | | | | | [phone] | | | | | | | | +--------+ + + + + | 03/04/ | Appointment | Rehabilitation | Genesis Ayon OT | | | 2019 | | | | | +--------+ + + + + | 03/09/ | Office | Orthopedic Surgery | Jeffrey Gandhi, | | | 2019 | Visit | | [address] | | | | | | [place] [address] | | | | | | [phone] | | | | | | | [...] [place] | | | | | | [address] | | | | | | [phone] | | | | | | | [...] | | | | | [place] [address] | | | | | | [phone] | | | | | | | | | | | | Azul Yeboah, | | | | | | [address] | | | | | | [place] | | | | | | [place] [address] | | | | | | [phone] | | | | | | | | +--------+ + + + + | 04/08/ | Appointment | Nutrition | Janel Webster | | | 2019 | | | [address], [address] | | +--------+ + + + + | 05/21/ | Office | Neurology | Dhara, | | | 2020 | Visit | | Cody, STAMP COLLECTOR [address] | | | | | | [address] [facility] [place], | | | | | | [place] [address] | | | | | | [phone] | | | | | | | | +--------+ + + + + documented as of this encounter Visit Diagnoses + + | Diagnosis | + + | Radial styloid tenosynovitis - Primary | + + | Right wrist pain Pain in joint, forearm | + + documented in this encounter"
--- OUTSIDE RECORDS SUMMARY | ~2020-02-18 | XMS | Encounter Summary ---
Demographics + + + | Address | [address] | | | [place] [address] | + + + | Home Phone [...] Team Providers + +------+ + | Care Coroner/Medical Examiner Name | Role | Phone | + +------+ + | Erika Ernst DO | PCP | | + +------+ + Reason for Visit +---------+ + | Reason | Comments | +---------+ + | Otalgia | | +---------+ + Encounter Details +--------+---------+ + + + | Date | Type | Department | Care Team | Description | +--------+---------+ + + + | 03/22/ | Office | [facility] | Catherine Diaz, | Left otitis media | | 2019 | Visit | [facility] | [employer] TE[employer] [address] | with effusion | | | | [facility] [address] | [place] [address] | | | | | [address] [place], | [phone] | | | | | [place] [address] | | | | | | [phone] | | | +--------+---------+ + + + [...] + + + | Blood Pressure | 145/95 | 03/22/2019 4:17 PM | | | | | PDT | | + + + + + | Pulse | 74 | 03/22/2019 4:17 PM | | | | | PDT | | + + + + + | Temperature | 36.8 C (98.2 F) | 03/22/2019 4:17 PM | | | | | PDT | | + + + + + | Respiratory Rate | 18 | 03/22/2019 4:17 PM | | | | | PDT | | + + + + + | Oxygen Saturation | 100% | 03/22/2019 4:17 PM | | | | | PDT | | + + + + + | Inhaled Oxygen | - | - | | | Concentration | | | | + + + + + | Weight | 171 kg (377 lb) | 03/22/2019 4:17 PM | | | | | PDT | | + + + + + | Height | 177.8 cm (5' 10") | 03/22/2019 4:17 PM | | | | | PDT | | + + + + + | Body Mass Index | 54.09 | 03/22/2019 4:17 PM | | | | | PDT | | + + + + + documented in this encounter Progress Notes Florida Warren CC CMA - 03/22/2019 3:30 PM PDTAfter obtaining consent, and per order s of Catherine ISIDRO, injection of ketorolac 60mg given by Florida Warren. Patient ins tructed to remain in clinic for 20 minutes afterwards, and to report any adverse reaction to me immediately. Also gave a duoneb treatment, patient tolerated well and was feeling better BRISA Harding CMA dilene Diaz FNP - 03/22/2019 3:30 PM PDT . Assessment & Plan: 1. Left otitis media with effusion Assessment & Plan: Upon arrival patient is nontoxic in appearance and hemodynamically stable. Does appear unc omfortable. Recent orthopedic procedure to right wrist 2 days ago. She missed her analges ic while waiting for appointment the walk-in clinic. Physical exam and HPI are consistent with viral illness with exacerbation of asthma. Given DuoNeb treatment in clinic with resolution in inspiratory wheezing. Additionally giv en IM Toradol for right wrist pain Based on length of symptoms we will not initiate antibio tic treatment at this time. We will however start short course of steroids, encouraged her to continue current medication regimen with Combivent, Zyrtec, Qvar, Singulair and albuterol when necessary. Continue analgesics as prescribed by orthopedics provider. Follow-up with PCP if no improvement or development systemic symptoms in next 3-5 days Other orders - Ipratropium-Albuterol - Ketorolac Tromethamine - predniSONE; Take 2 tablets by mouth Daily for 5 days. Dispense: 10 tablet; Refill: 0 Subjective: Chief Complaint Patient presents with Otalgia Patient ID: Andrea Suh is a 28 y.o. female. Patient is a 20-year-old female who presents to walk-in clinic for evaluation. Patient com plains of ear pain. Reports onset 3 days ago. Describes as aching sensation. Denies any d rainage. Reports history of Mnire's disease and TMJ. Additionally complains of nonprod uctive cough and tightness tightness. States has personal medical history of asthma. Repor ts current symptoms are consistent with past asthma exacerbations. Denies fever, chills, na usea, vomiting Patient's medications, allergies, past medical, surgical, social and family histories were obtained and reviewed as appropriate. Objective: BP (!) 145/95 | Pulse 74 | Temp 36.8 C (98.2 F) (Temporal) | Resp 18 | Ht 1.778 m ( 5' 10") | Wt (!) 171 kg (377 lb) | SpO2 100% | BMI 54.09 kg/m Physical Exam Constitutional: She appears well-developed and well-nourished. No distress. HENT: Head: Normocephalic. Left Ear: A middle ear effusion is present. Pulmonary/Chest: Effort normal. No respiratory distress. She has decreased breath sounds. S he has wheezes. Musculoskeletal: Splint/cast intact to right upper extremity status post orthopedic wrist surgery Neurological: Abnormal coordination: inspiratory. Skin: Skin is warm. Psychiatric: She has a normal mood and affect. Nursing note and vitals reviewed. Electronically signed by: DWAINE Chapman, 03/27/2019 15:50 This note was transcribed using voice recognition [...] | | 2019 | | | DO [address] [place] [address] | | | | | | [place] [address] | | | | | | [phone] | | | | | | | | | | | | Julia Fisher, | | | | | | PT | | +--------+ + + + + | 02/18/ | Appointment | Rehabilitation | Erika Ernst, | | | 2019 | | | DO [address] | | | | | | [place] [address] | | | | | | [phone] | | | | | | | | | | | | Genesis Ayon, SUSAN | | +--------+ + + + + | 02/25/ | Office | Primary Care | Erika Ernst, | | | 2019 | Visit | | DO [address] | | | | | | [place] [address] | | | | | | [phone] | | | | | | | [...] | | | | | [place] [address] | | | | | | [phone] | | | | | | | | +--------+ + + + + | 02/27/ | Appointment | Radiology | Dhara, | | | 2019 | | | DWAINE Ross [address] [place], | | | | | | [place] [address] | | | | | | [phone] | | | | | | | [...] | | | | | [place] [address] | | | | | | [phone] | | | | | | | [...] [place] | | | | | | [address] | | | | | | [phone] | | | | | | | [...] | | | | | [place] [address] | | | | | | [phone] | | | | | | | | | | | | Azul Yeboah, | | | | | | MD [address] | | | | | | [place] | | | | | | [place] [address] | | | | | | [phone] | | | | | | | [...] | | | | | | [place] [address] | | | | | | [phone] | | | | | | | | +--------+ + + + + documented as of this encounter Visit Diagnoses + + | Diagnosis | + + | Left otitis media with effusion Nonsuppurative otitis media, not specified as acute | | or chronic | + + documented in this encounter Administered Medications + +--------+ +-------+------+------+ | Medication Order | MAR | Action | Dose | Rate | Site | | | Action | Date | | | | + +--------+ +-------+------+------+ | albuterol-ipratropium 2.5-0.5 | Given | 03/22/20 | 3 mLs | | | | mg/3 mL nebulizer solution 3 mL | | 19 6:41 | | | | | 3 mL, Nebulization, ONCE, Fri | | PM PDT | | | | | 03/22/19 at 1645, For 1 dose | | | | | | + +--------+ +-------+------+------+ +---+---+ | | | +---+---+ + +-------+ +-------+---+ + | ketorolac (TORADOL) injection | Given | 03/22/20 | 60 mg | | Glut-Rig | | 60 mg 60 mg, Intramuscular, | | 19 6:42 | | | ht | | ONCE, 03/22/19 at 1645, For 1 | | PM PDT | | | | | dose | | | | | | + +-------+ +-------+---+ + +---+---+ | | | +---+---+ documented in this encounter
--- OUTSIDE RECORDS SUMMARY | ~2020-02-18 | XMS | Encounter Summary ---
Demographics + + + | Address | [address] | | | [place] [address] | + + + | Home Phone [...] Providers + +------+ + | Care Employment Manager Name | Role | Phone | [...] persistent | | 2019 | Visit | [facility] | joanna, CHART READER [address] | asthma with | | | | [facility] [address] [place] | exacerbation | | | | [address] [place], | [place] [address] | (Primary Dx); | | | | [place] [address] | [phone] | Environmental | | | | [phone] | | allergies | +--------+---------+ + + [...] made to ensure accuracy. However, inadvertent computerized per diem interpreter errors may be pre sent documented in t his encounter Plan of Treatment +--------+ + + + + | Date | Type | Specialty | Care Team | Description | +--------+ + + + + | 02/18/ | Appointment | Rehabilitation | Erika Ernst, | | | 2019 | | | DO | | | | | | [place] [address] | | | | | | [phone] | | | | | | | | | | | | Julia Fisher, | | | | | | PT | | +--------+ + + + + | 02/18/ | Appointment | Rehabilitation | Erika Ernst, | | | 2019 | | | DO [address] | | | | | | [place] [address] | | | | | | [phone] | | | | | | | | | | | | Genesis Ayon OT | | +--------+ + + + + | 02/25/ | Office | Primary Care | Erika Ernst, | | | 2019 | Visit | | DO [address] | | | | | | [place] [address] | | | | | | [phone] | | | | | | | [...] | | | | | [place] [address] | | | | | | [phone] | | | | | | | | +--------+ + + + + | 02/27/ | Appointment | Radiology | Dhara, | | | 2019 | | | DWAINE Ross [address] | | | | | | [address] [facility] [place], | | | | | | [place] [address] | | | | | | [phone] | | | | | | | [...] [place]ORE | | | | | | [place] [address] | | | | | | [phone] | | | | | | | [...] [place] | | | | | | [address] | | | | | | [phone] | | | | | | | [...] | | | | | [place] [address] | | | | | | [phone] | | | | | | | | | | | | Azul Yeboah, | | | | | | MD [address] | | | | | | [place] | | | | | | [place] [address] | | | | | | [phone] | | | | | | | | +--------+ + + + + | 04/08/ | Appointment | Nutrition | Janel Webster | | | 2019 | | | [address], [address] | | +--------+ + + + + | 05/21/ | Office | Neurology | Dhara, | | | 2020 | Visit | | Cody, CHART READER [address] | | | | | | [address] [facility] [place], | | | | | | [place] [address] | | | | | | [phone] | | | | | | | [...]
--- OUTSIDE RECORDS SUMMARY | ~2020-02-18 | XMS | Encounter Summary ---
Demographics + + + | Address | [address] | | | [place] [address] | + + + | Home Phone [...] Author | [facility] | | [...] Team Providers + +------+ + | Care Candy Bar Attendant Name | Role | Phone | [...] | | | of left | [place] [address] | [place] [address] | | | | | ankle, | Phone: | Phone: | | | | | initial | [phone] | [phone] | | | | | encounter | Fax: | Fax: | | | | | Procedures | [phone] | [phone] | | | | | PT TREAT [...] [address] [place] | [place] [address] | encounter (Primary | | | | [place], [place] | [phone] | Dx) | | | | [address] | | | | | | [phone] | Nick Barrios I, PT | | [...] Szymanski, PT - 10/25/2018 2:47 PM PST [facility] PT [address] [place] [address] Discharge Summary Date: 10/25/2018 Patient Name: Andrea [...] reports of muscle fatigue an d requiring BLADE GRINDER with grab bar in order to maintain [...] [facility] in order to return to prior [...] PT - 10/25/2018 2: 45 PM PST [facility] PT [address] [place] [address] Physical Therapy Daily Treatment Note Date: 10/25/2018 [...] L ankle ROM today. Due to reaching [facility] with improvement, patient is appropriate for discharge [...] in favor of SL heel raise with BLADE GRINDER. ONGOING: S LS on even surface 3x30 [...] | | | | | [place] [address] | | | | | | [phone] | | | | | | | | | | | | Julia Fisher, | | | | | | PT | | +--------+ + + + + | 02/18/ | Appointment | Rehabilitation | Erika Ernst, | | | 2019 | | | DO [address] | | | | | | [place] [address] | | | | | | [phone] | | | | | | | | | | | | Genesis Ayon, OT | | +--------+ + + + + | 02/25/ | Office | Primary Care | Erika Ernst, | | | 2019 | Visit | | DO [address] | | | | | | [place] [address] | | | | | | [phone] | | | | | | | [...] | | | | | [place] [address] | | | | | | [phone] | | | | | | | | +--------+ + + + + | 02/27/ | Appointment | Radiology | Dhara, | | 2019 | | | DWAINE Ross [address] | | | | | | [address] [place], | | | | | | [place] [address] | | | | | | [phone] | | | | | | | [...] ST | | | | | | [place] [address] | | | | | | [phone] | | | | | | | [...] [place] | | | | | | [address] | | | | | | [phone] | | | | | | | [...] | | | | | [place] [address] | | | | | | [phone] | | | | | | | | | | | | Azul Yeboah, | | | | | | [address] | | | | | | [place] | | | | | | [place] [address] | | | | | | [phone] | | | | | | | [...] | | | | | | [place] [address] | | | | | | [phone] | | | | | | | | +--------+ + + + + documented as of this encounter Visit Diagnoses + + | Diagnosis | + + | Sprain of left ankle, subsequent encounter - Primary | + + documented in this encounter
--- OUTSIDE RECORDS SUMMARY | ~2020-02-18 | XMS | Encounter Summary ---
Demographics + + + | Address | [address] | | | [place] [address] | + + + | Home Phone [...] Providers + +------+ + | Care Field Operator Name | Role | Phone | [...] | | | right ankle, | [place] [address] | [place] [address] | | | | | subsequent | Phone: | Phone: | | | | | encounter | [phone] | [phone] | | | | | Procedures | Fax: | Fax: | | | | | PT TREAT | [phone] | [phone] | + +--------+ + + + + [...] [address] | [place] [address] | ankle, subsequent | | | | [place], [place] | [phone] | encounter (Primary | | | | [address] | | Dx) | | | | [phone] | Julia Peña, | | | | | | NURSING SCHEDULER | | +--------+ + + + + [...] of this encounter Progress Notes Julia Peña, NURSING SCHEDULER - 12/04/2019 1:00 PM PSTFormatting of this note might be differen t from the original. [facility] PT [address] [place] [address] Physical Therapy Daily Treatment Note Date: 12/04/2019 [...] Patient Name: Andrea Suh/: 1990/ Start Time: 010 Stop time: [...] | | | | | [place] [address] | | | | | | [phone] | | | | | | | | | | | | Julia Fisher, | | | | | | PT | | +--------+ + + + + | 02/18/ | Appointment | Rehabilitation | Erika Ernst, | | | 2019 | | | DO [address] | | | | | | [place] [address] | | | | | | [phone] | | | | | | | | | | | | Genesis Ayon OT | | +--------+ + + + + | 02/25/ | Office | Primary Care | Erika Ernst, | | | 2019 | Visit | | DO [address] | | | | | | [place] [address] | | | | | | [phone] | | | | | | | [...] | | | | | [place] [address] | | | | | | [phone] | | | | | | | | +--------+ + + + + | 02/27/ | Appointment | Radiology | Dhara, | | | 2019 | | | DWAINE Ross [address] | | | | | | [address]TH [facility], | | | | | | [place] [address] | | | | | | [phone] | | | | | | | [...] [place] | | | | | | [place] [address] | | | | | | [phone] | | | | | | | [...] [place] | | | | | | [address] | | | | | | [phone] | | | | | | | [...] | | | | | [place] [address] | | | | | | [phone] | | | | | | | | | | | | Azul Yeboah, | | | | | | MD [address] | | | | | | [place] | | | | | | [place] [address] | | | | | | [phone] | | | | | | | [...] | | | | | | [place] [address] | | | | | | [phone] | | | | | | | | +--------+ + + + + documented as of this encounter Visit Diagnoses + + | Diagnosis | + + | Sprain of deltoid ligament of right ankle, subsequent encounter - Primary | + + documented in this encounter"
--- OUTSIDE RECORDS SUMMARY | ~2020-02-18 | XMS | Encounter Summary ---
Demographics + + + | Address | [address] | | | [place] [address] | + + + | Home Phone [...] Team Providers + +------+ + | Care Operator Control Room Name | Role | Phone | + +------+ + PCP | Unavailable | + +------+ + Encounter Details +--------+ + + + + | Date | Type | Department | Care Team | Description | +--------+ + + + + | 03/09/ | [facility] [place] | Denise Mcgregor | | | 2017 | Encounter | [facility] | G, CAFETERIA AIDE | | | | | MEDICAL CLINIC [address] | | | | | | 4TH [facility] [place], | | | | | | [place] [address] | | | | | | [phone] | | | +--------+ + + + [...] | | | | | [place] [address] | | | | | | [phone] | | | | | | | | | | | | Julia Fisher, | | | | | | PT | | +--------+ + + + + | 02/18/ | Appointment | Rehabilitation | Erika Ernst, | | | 2019 | | | DO [address] | | | | | | [place] [address] | | | | | | [phone] | | | | | | | | | | | | Genesis Ayon OT | | +--------+ + + + + | 02/25/ | Office | Primary Care | Erika Ernst, | | | 2019 | Visit | | DO [address] | | | | | | [place] [address] | | | | | | [phone] | | | | | | | [...] | | | | | | [place] [address] | | | | | | [phone] | | | | | | | | +--------+ + + + + | 02/27/ | Appointment | Radiology | Dhara, | | | 2019 | | | DWAINE Ross [address] | | | | | | [address] [place], | | | | | | [place] [address] | | | | | | [phone] | | | | | | | [...] | | | | | [place] [address] | | | | | | [phone] | | | | | | | [...] [place] | | | | | | [address] | | | | | | [phone] | | | | | | | [...] | | | | | [place] [address] | | | | | | [phone] | | | | | | | | | | | | Azul Yeboah, | | | | | | MD [address] | | | | | | [place] | | | | | | [place] [address] | | | | | | [phone] | | | | | | | [...] | | | | | | [place] [address] | | | | | | [phone] | | | | | | | | +--------+ + + + + documented as of this encounter Visit Diagnoses Not on filedocumented in this encounter"
--- OUTSIDE RECORDS SUMMARY | ~2020-02-18 | XMS | Encounter Summary ---
Demographics + + + | Address | [address] | | | [place] [address] | + + + | Home Phone [...] Providers + +------+ + | Care Facilities Officer Name | Role | Phone | [...] + + + + | 10/26/ | Telephone | [place] | Alma Rosa Hylton, | Advice Only | | 2019 | | [facility] | RN | | | | | [facility] [address] | | | | | | [address] [facility] [place], | | | | | | [place] [address] | | | | | | [phone] | | | +--------+ + + + [...] | | | | | [place] [address] | | | | | | [phone] | | | | | | | | | | | | Julia Fisher, | | | | | | PT | | +--------+ + + + + | 02/18/ | Appointment | Rehabilitation | Erika Ernst, | | | 2019 | | | DO [address] | | | | | | [place] [address] | | | | | | [phone] | | | | | | | | | | | | Genesis Ayon OT | | +--------+ + + + + | 02/25/ | Office | Primary Care | Erika Ernst, | | | 2019 | Visit | | DO [address] | | | | | | [place] [address] | | | | | | [phone] | | | | | | | [...] | | | | | [place] [address] | | | | | | [phone] | | | | | | | | +--------+ + + + + | 02/27/ | Appointment | Radiology | Dhara, | | | 2019 | | | DWAINE [address] | | | | | | [address] [facility] [place], | | | | | | [place] [address] | | | | | | [phone] | | | | | | | [...] [place] | | | | | | [place] [address] | | | | | | [phone] | | | | | | | [...] [place] | | | | | | [address] | | | | | | [phone] | | | | | | | [...] | | | | | [place] [address] | | | | | | [phone] | | | | | | | | | | | | Azul Yeboah, | | | | | | MD [address] | | | | | | [place] | | | | | | [place] [address] | | | | | | [phone] | | | | | | | | +--------+ + + + + | 04/08/ | Appointment | Nutrition | Janel Webster | | | 2019 | | | [address], [address] | | +--------+ + + + + | 05/21/ | Office | Neurology | Dhara, | | | 2019 | Visit | | Karyanne, DISK GRINDER [address] | | | | | | [address] [place], | | | | | | [place] [address] | | | | | | [phone] | | | | | | | | +--------+ + + + + documented as of this encounter Visit Diagnoses Not on filedocumented in this encounter"
--- OUTSIDE RECORDS SUMMARY | ~2020-02-18 | XMS | Encounter Summary ---
Demographics + + + | Address | [address] | | | [place] [address] | + + + | Home Phone [...] Team Providers + +------+ + | Care Pie Filler Name | Role | Phone | [...] | | | of left | [place] [address] | [place] [address] | | | | | ankle, | Phone: | Phone: | | | | | initial | [phone] | [phone] | | | | | encounter | Fax: | Fax: | | | | | Procedures | [phone] | [phone] | | | | | PT EVAL [...] [address] | [place] [address] | encounter (Primary | | | | [place], [place] | [phone] | Dx) | | | | [address] | | | | | | [phone] | Nick Barrios I, PT | | [...] 4/10 today 08/10/18 Treatment Plan/Interventions PT EvaluationPT Re-[id number] - Therapeutic Ndxkwvsz04413 - Neuromuscular Reeducation9 7116 - Gait Kbgddluz65187 - Therapeutic Zeuvvhilkj96979 - Manual Gzekeww41458 - Self Care/Ho me Scjbweieqp35074 - Group Therapeutic Mbrzaiwbhy66828 - Aquatic Therapy/Taczqyohp74050 - Io ycpzvbxxbyy53677 - TENS Application/Elvoaygyqjf14012 - Electrical Stimulation, Wzyebjlbtr171 35 - Ultrasound Electronically signed by: Nick Barrios PT, 08/10/2018 17:12 Patient Name: Andrea Suh/: 1990/ osephNick I PT - 08/10/2018 5:[address] [facility] PT [address] [place] [address] Physical Therapy Daily Treatment Note Date: 08/10/2018 [...] and B genuvalgum during ambulation Level of Waldo: independent Gait Deviations: stride width increased, other [...] in favor of SL heel raise with CAR CHASER. ONGOING: SLS on even surface 3x30 seconds [...] Rhomberg stance on airex eye s closed CAR CHASER as needed 2x1 minute // Lateral gait [...] | | | | | [place] [address] | | | | | | [phone] | | | | | | | | | | | | Julia Fisher, | | | | | | PT | | +--------+ + + + + | 02/18/ | Appointment | Rehabilitation | Erika Ernst, | | | 2019 | | | DO [address] | | | | | | [place] [address] | | | | | | [phone] | | | | | | | | | | | | Genesis Ayon OT | | +--------+ + + + + | 02/25/ | Office | Primary Care | Erika Ernst, | | | 2019 | Visit | | DO [address] | | | | | | [place] [address] | | | | | | [phone] | | | | | | | [...] | | | | | [place] [address] | | | | | | [phone] | | | | | | | | +--------+ + + + + | 02/27/ | Appointment | Radiology | Dhara, | | | 2019 | | | DWAINE Ross [address] [place], | | | | | | [place] [address] | | | | | | [phone] | | | | | | | | +--------+ + + + + | 03/04/ | Appointment | Rehabilitation | Genesis Ayon OT | | | 2019 | | | | | +--------+ + + + + | 03/09/ | Office | Orthopedic Surgery | Jeffrey Gandhi, | | 2019 | Visit | | [address] [facility] | | | | | | [place] [address] | | | | | | [phone] | | | | | | | [...] [place] | | | | | | [address] | | | | | | [phone] | | | | | | | [...] | | | | | [place] [address] | | | | | | [phone] | | | | | | | | | | | | Azul Yeboah, | | | | | | [address] | | | | | | [place] | | | | | | [place] [address] | | | | | | [phone] | | | | | | | [...] | | | | | | [place] [address] | | | | | | [phone] | | | | | | | | +--------+ + + + + documented as of this encounter Visit Diagnoses + + | Diagnosis | + + | Sprain of left ankle, subsequent encounter - Primary | + + documented in this encounter
--- OUTSIDE RECORDS SUMMARY | ~2020-02-18 | XMS | Encounter Summary ---
Demographics + + + | Address | [address] | | | [place] [address] | + + + | Home Phone [...] Team Providers + +------+ + | Care Caisson Worker Name | Role | Phone | + +------+ + PCP | Unavailable | + +------+ + Encounter Details +--------+ + + + + | Date | Type | Department | Care Team | Description | +--------+ + + + + | 08/24/ | [facility] [place] [facility] | Denise Mcgregor | | | 2016 | Encounter | [facility] | G, GOLF COURSE KEEPER | | | | | MEDICAL CLINIC [address] | | | | | | [address] [facility] [place], | | | | | | [place] [address] | | | | | | [phone] | | | +--------+ + + + [...] | | | | | [place] [address] | | | | | | [phone] | | | | | | | | | | | | Julia Fisher, | | | | | | PT | | +--------+ + + + + | 02/18/ | Appointment | Rehabilitation | Erika Ernst, | | 2019 | | | DO [address] | | | | | | [place] [address] | | | | | | [phone] | | | | | | | | | | | | Genesis Ayon, SUSAN | | +--------+ + + + + | 02/25/ | Office | Primary Care | Erika Ernst, | | | 2019 | Visit | | DO [address] [place] [address] | | | | | | [place] [address] | | | | | | [phone] | | | | | | | [...] | | | | | [place] [address] | | | | | | [phone] | | | | | | | | +--------+ + + + + | 02/27/ | Appointment | Radiology | Dhara, | | | 2019 | | | [address]WAINE [address] | | | [address] [place], | | | | | | [place] [address] | | | | | | [phone] | | | | | | | [...] | | | | | [place] [address] | | | | | | [phone] | | | | | | | [...] [place] | | | | | | [address] | | | | | | [phone] | | | | | | | [...] | | | | | [place] [address] | | | | | | [phone] | | | | | | | | | | | | Azul Yeboah, | | | | | | MD [address] | | | | | | [place] | | | | | | [place] [address] | | | | | | [phone] | | | | | | | [...] | | | | | | [place] [address] | | | | | | [phone] | | | | | | | | +--------+ + + + + documented as of this encounter Visit Diagnoses Not on filedocumented in this encounter"
--- OUTSIDE RECORDS SUMMARY | ~2020-02-18 | XMS | Encounter Summary ---
Demographics + + + | Address | [address] | | | [place] [address] | + + + | Home Phone [...] Providers + +------+ + | Care Hot Saw Operator Name | Role | Phone [...] | | | of left | [place] [address] | [place] [address] | | | | | ankle, | Phone: | Phone: | | | | | initial | [phone] | [phone] | | | | | encounter | Fax: | Fax: | | | | | Procedures | [phone] | [phone] | | | | | PT EVAL [...] [address] [place] | [place] [address] | encounter (Primary | | | | [place] | [phone] | Dx); Fall on same | | | | [address] | | level from slipping, | | | | [phone] | Nick Barrios I, PT | subsequent [...] has been updated for this PT series ([id number]) based on the documentation on the plan of care. Please code visit diagnoses as follows: Primary: S93.412D sprain L ankle, subsequent Secondary: W01.0XXD fall from slipping If you have any further questions please let me know. Thank you, Shelly Zeng, CCA Electronically signed by: Nick Barrios, PT, 08/07/2018 11:42 osedoug, Nick Szymanski, PT - 07/20/2018 10:20 AM PDT [facility] PT [address] [place] [address] Physical Therapy Daily Treatment Note Date: 07/19/2018 [...] | | | | | [place] [address] | | | | | | [phone] | | | | | | | | | | | | Julia Fisher, | | | | | | PT | | +--------+ + + + + | 02/18/ | Appointment | Rehabilitation | Erika Ernst, | | | 2019 | | | DO [address] | | | | | | [place] [address] | | | | | | [phone] | | | | | | | | | | | | Genesis Ayon OT | | +--------+ + + + + | 02/25/ | Office | Primary Care | Erika Ernst, | | | 2019 | Visit | | DO [address] [place] | | | | | | [place] [address] | | | | | | [phone] | | | | | | | [...] | | | | | [place] [address] | | | | | | [phone] | | | | | | | | +--------+ + + + + | 02/27/ | Appointment | Radiology | Dhara, | | | 2019 | | | [address] | | | | | | [address]TH [facility] [place], | | | | | | [place] [address] | | | | | | [phone] | | | | | | | | +--------+ + + + + | 03/04/ | Appointment | Rehabilitation | Genesis Ayon OT | | | 2019 | | | | | +--------+ + + + + | 03/09/ | Office | Orthopedic Surgery | Jeffrey Gandhi, | | | 2019 | Visit | | [address] [facility] | | | | | | [place] [address] | | | | | | [phone] | | | | | | | [...] [place] | | | | | | [address] | | | | | | [phone] | | | | | | | [...] | | | | | [place] [address] | | | | | | [phone] | | | | | | | | | | | | Azul Yeboah, | | | | | | MD [address] | | | | | | [place] | | | | | | [place] [address] | | | | | | [phone] | | | | | | | [...] | | | | | | [place] [address] | | | | | | [phone] | | | | | | | | +--------+ + + + + documented as of this encounter Visit Diagnoses + + | Diagnosis | + + | Sprain of left ankle, subsequent encounter - Primary | + + | Fall on same level from slipping, subsequent encounter | + + documented in this encounter
--- OUTSIDE RECORDS SUMMARY | ~2020-02-18 | XMS | Encounter Summary ---
Demographics + + + | Address | [address] | | | [place] [address] | + + + | Home Phone [...] Team Providers + +------+ + | Care Painter Supervisor Name | Role | Phone | [...] | [address] [place], [place] | [place] [address] | | | | | [address] | [phone] | | | | | [phone] | | | +--------+ + + + [...] | | | | | [place] [address] | | | | | | [phone] | | | | | | | | | | | | Julia Fisher, | | | | | | PT | | +--------+ + + + + | 02/18/ | Appointment | Rehabilitation | Erika Ernst, | | | 2019 | | | DO [address] [place] | | | | | | [place] [address] | | | | | | [phone] | | | | | | | | | | | | Genesis Ayon OT | | +--------+ + + + + | 02/25/ | Office | Primary Care | Erika Ernst, | | | 2019 | Visit | | DO [address] | | | | | | [place] [address] | | | | | | [phone] | | | | | | | [...] | | | | | [place] [address] | | | | | | [phone] | | | | | | | | +--------+ + + + + | 02/27/ | Appointment | Radiology | Dhara, | | | 2019 | | | [address] | | | | | | [address] [facility], | | | | | | [place] [address] | | | | | | [phone] | | | | | | | [...] [place] | | | | | | [place] [address] | | | | | | [phone] | | | | | | | [...] [place] | | | | | | [address] | | | | | | [phone] | | | | | | | [...] | | | | | [place] [address] | | | | | | [phone] | | | | | | | | | | | | Azul Yeboah, | | | | | | MD [address] | | | | | | [place] | | | | | | [place] [address] | | | | | | [phone] | | | | | | | | +--------+ + + + + | 04/08/ | Appointment | Nutrition | Janel Webster | | | 2019 | | | [place], [place] | | +--------+ + + + + | 05/21/ | Office | Neurology | [place], | | | 2020 | Visit | | DWIANE Ross [address] [place], | | | | | | [place] [address] | | | | | | [phone] | | | | | | | | +--------+ + + + + documented as of this encounter Visit Diagnoses Not on filedocumented in this encounter"
--- OUTSIDE RECORDS SUMMARY | ~2020-02-18 | XMS | Encounter Summary ---
Demographics + + + | Address | [address] | | | [place] [address] | + + + | Home Phone [...] Team Providers + +------+ + | Care Winch Derrick Operator Name | Role | Phone | [...] + + + + | Closed | Second | Orthopedic | Diagnoses | Klever, | Sandef[place], | | | Opinion | Surgery | Injury of | Erika Salter, DO | Caleb Pastrana | | | | | right hand, | [address] | [address] | | | | | subsequent | [place], | [address] | | | | | encounter | [place] [address] | [place], | | | | | | Phone: | [place] | | | | | | [phone] | [address] | | | | | | Fax: | Phone: | | | | | | [phone] | [phone] | | | | | | | Fax: | | | | | | | [phone] | +--------+ + + + + + Encounter Details +--------+ + + + + | Date | Type | Department | Care Team | Description | +--------+ + + + + | 08/13/ | Orders Only | [facility] [facility] | Erika Ernst, | Injury of right | | 2019 | | [facility] | DO [address] | hand, subsequent | | | | [facility] | [place] [address] | encounter (Primary | | | | [address] [place], | [phone] | Dx) | | | | [place] [address] | | | | | | [phone] | | | +--------+ + + + [...] | | 2019 | | | DO [address] [place] [address] | | | | | | [place] [address] | | | | | | [phone] | | | | | | | | | | | | Julia Fisher, | | | | | | PT | | +--------+ + + + + | 02/18/ | Appointment | Rehabilitation | Erika Ernst, | | | 2019 | | | DO [address] [place] | | | | | | [place] [address] | | | | | | [phone] | | | | | | | | | | | | Genesis Ayon OT | | +--------+ + + + + | 02/25/ | Office | Primary Care | Erika Ernst, | | | 2019 | Visit | | DO [address] [place] | | | | | | [place] [address] | | | | | | [phone] | | | | | | | [...] | | | | | [place] [address] | | | | | | [phone] | | | | | | | | +--------+ + + + + | 02/27/ | Appointment | Radiology | Dhara, | | | 2019 | | | [address] | | | | | | [address] [place], | | | | | | [place] [address] | | | | | | [phone] | | | | | | | [...] | | | | | [place] [address] | | | | | | [phone] | | | | | | | [...] [place] | | | | | | [address] | | | | | | [phone] | | | | | | | [...] | | | | | [place] [address] | | | | | | [phone] | | | | | | | | | | | | Azul Yeboah, | | | | | | MD [address] | | | | | | [place] | | | | | | [place] [address] | | | | | | [phone] | | | | | | | [...] | | | | | | [place] [address] | | | | | | [phone] | | | | | | | | +--------+ + + + + + + +--------+ + + | Name | Type | Priori | Associated Diagnoses | Order Schedule | | | | ty | | | + + +--------+ + + | AMB REFERRAL TO | Outpatient | Routin | Injury of right | Ordered: 08/13/2019 | | [facility] | Referral | e | hand, subsequent | | | | | | encounter | | + + +--------+ + + documented as of this encounter Visit Diagnoses + + | Diagnosis | + + | Injury of right hand, subsequent encounter - Primary | + + documented in this encounter"
--- OUTSIDE RECORDS SUMMARY | ~2020-02-18 | XMS | Encounter Summary ---
Demographics + + + | Address | [address] | | | [place] [address] | + + + | Home Phone [...] Providers + +------+ + | Care Senior Case Manager Name | Role | Phone | [...] | [facility] | [place] [address] | (Primary Dx) | | | | [address] [place], | [phone] | | | | | [place] [address] | | | | | | [phone] | | | +--------+ + + + [...] | | | | | [place] [address] | | | | | | [phone] | | | | | | | | | | | | Julia Fisher, | | | | | | PT | | +--------+ + + + + | 02/18/ | Appointment | Rehabilitation | Erika Ernst, | | | 2019 | | | DO [address] [place] | | | | | | [place] [address] | | | | | | [phone] | | | | | | | | | | | | Genesis Ayon, SUSAN | | +--------+ + + + + | 02/25/ | Office | Primary Care | Erika Ernst, | | | 2019 | Visit | | DO [address] [place] [address] | | | | | | [place] [address] | | | | | | [phone] | | | | | | | [...] | | | | | [place] [address] | | | | | | [phone] | | | | | | | | +--------+ + + + + | 02/27/ | Appointment | Radiology | Dhara, | | | 2019 | | | [address] | | | | | | [address] [place], | | | | | | [place] [address] | | | | | | [phone] | | | | | | | [...] | | | | | [place] [address] | | | | | | [phone] | | | | | | | [...] [place] | | | | | | [address] | | | | | | [phone] | | | | | | | [...] | | | | | [place] [address] | | | | | | [phone] | | | | | | | | | | | | Azul Yeboah, | | | | | | MD [address] | | | | | | [place] | | | | | | [place] [address] | | | | | | [phone] | | | | | | | [...] | | | | | | [place] [address] | | | | | | [phone] | | | | | | | [...] [address] | [place] | [phone] | | [facility] | | [address] | | | [facility] | | | [...] | | ENIO | | | | Clam Treader | | | | | | [address] [facility] | | | | | | [place] [address] | | | | | | CLIA #[id number] | | | | + + + [...] + + + | REFERENCE LAB | [address] [facility] | [place], [place] | | | [facility] - | | [address] | | | [facility] | | | | + + + + + documented in this encounter Visit Diagnoses + + | Diagnosis | + + | Subclinical hypothyroidism - Primary Other specified acquired hypothyroidism | + + documented in this encounter"
--- OUTSIDE RECORDS SUMMARY | ~2020-02-18 | XMS | Encounter Summary ---
Demographics + + + | Address | [address] | | | [place] [address] | + + + | Home Phone [...] Providers + +------+ + | Care Outside Residential Sales Professional Name | Role | Phone | [...] | | | | [place] | [place] [address] | [place], [place] | | | | | | Phone: | [phone] | | | | | | [phone] | Phone: | | | | | | Fax: | [phone] | | | | | | [phone] | Fax: | | | | | | | [phone] | +--------+ + + + + + [...] | [facility] [address] | [place] [address] | (Primary Dx); | | | | [address] [place], | [phone] | Environmental | | | | [place] [address] | | allergies; Acute | | | | [phone] | | recurrent frontal | | | [...] diet. She has allergies and is seeing [facility] for allergy shots. She has had sinus [...] | | | | | [place] [address] | | | | | | [phone] | | | | | | | | | | | | Julia Fisher, | | | | | | PT | | +--------+ + + + + | 02/18/ | Appointment | Rehabilitation | Erika Ernst, | | | 2019 | | | DO [address] [place] | | | | | | [place] [address] | | | | | | [phone] | | | | | | | | | | | | Genesis Ayon OT | | +--------+ + + + + | 02/25/ | Office | Primary Care | Erika Ernst, | | | 2019 | Visit | | DO [address] | | | | | | [place] [address] | | | | | | [phone] | | | | | | | [...] | | | | | [place] [address] | | | | | | [phone] | | | | | | | | +--------+ + + + + | 02/27/ | Appointment | Radiology | Dhara, | | | 2019 | | | [address] | | | | | | [address] [place], | | | | | | [place] [address] | | | | | | [phone] | | | | | | | | +--------+ + + + + | 03/04/ | Appointment | Rehabilitation | Genesis Ayon OT | | | 2019 | | | | | +--------+ + + + + | 03/09/ | Office | Orthopedic Surgery | Jeffrey Gandhi, | | | 2019 | Visit | | [address] [facility] | | | | | | [place] [address] | | | | | | [phone] | | | | | | | [...] [place] | | | | | | [address] | | | | | | [phone] | | | | | | | [...] | | | | | [place] [address] | | | | | | [phone] | | | | | | | | | | | | Azul Yeboah, | | | | | | [address] | | | | | | [place] | | | | | | [place] [address] | | | | | | [phone] | | | | | | | [...] | | | | | | [place] [address] | | | | | | [phone] | | | | | | | [...]
--- OUTSIDE RECORDS SUMMARY | ~2020-02-18 | XMS | Encounter Summary ---
Demographics + + + | Address | [address] | | | [place] [address] | + + + | Home Phone [...] Providers + +------+ + | Care Sales Service Supervisor Name | Role | Phone | + +------+ + PCP | Unavailable | + +------+ + Encounter Details +--------+ + + + + | Date | Type | Department | Care Team | Description | +--------+ + + + + | 08/04/ | [facility] | Jessica Hoang, | | | 2013 | Encounter | [facility] | [address] | | | | | CENTER [address] | [place] | | | | | [place] | [address] | | | | | [address] | | | | | | [phone] | | | +--------+ + + + [...] | | | | | [place] [address] | | | | | | [phone] | | | | | | | | | | | | Julia Fisher, | | | | | | PT | | +--------+ + + + + | 02/18/ | Appointment | Rehabilitation | Erika Ernst, | | | 2019 | | | DO [address] [place] | | | | | | [place] [address] | | | | | | [phone] | | | | | | | | | | | | Genesis Ayon, SUSAN | | +--------+ + + + + | 02/25/ | Office | Primary Care | Erika Ernst, | | | 2019 | Visit | | DO [address] | | | | | | [place] [address] | | | | | | [phone] | | | | | | | [...] | | | | | | [place] [address] | | | | | | [phone] | | | | | | | | +--------+ + + + + | 02/27/ | Appointment | Radiology | Dhara, | | | 2019 | | | [address] | | | | | | 4TH [facility], | | | | | | [place] [address] | | | | | | [phone] | | | | | | | | +--------+ + + + + | 03/04/ | Appointment | Rehabilitation | Genesis Ayon OT | | | 2019 | | | | | +--------+ + + + + | 03/09/ | Office | Orthopedic Surgery | Jeffrey Gandhi, | | | 2019 | Visit | | [address] [facility] | | | | | | [place] [address] | | | | | | [phone] | | | | | | | [...] [place] | | | | | | [address] | | | | | | [phone] | | | | | | | [...] | | | | | [place] [address] | | | | | | [phone] | | | | | | | | | | | | Azul Yeboah, | | | | | | MD [address] | | | | | | [place] | | | | | | [place] [address] | | | | | | [phone] | | | | | | | [...] | | | | | | [place] [address] | | | | | | [phone] | | | | | | | | +--------+ + + + + documented as of this encounter Visit Diagnoses Not on filedocumented in this encounter"
--- OUTSIDE RECORDS SUMMARY | ~2020-02-18 | XMS | Encounter Summary ---
Demographics + + + | Address | [address] | | | [place] [address] | + + + | Home Phone [...] Team Providers + +------+ + | Care Breeding Manager Name | Role | Phone | [...] | [facility] [place] [address] | | | | | [address] [facility], | [phone] | | | | | [place] [address] | | | | | | [phone] | | | +--------+ + + + [...] | | | | | [place] [address] | | | | | | [phone] | | | | | | | | | | | | Julia Fisher, | | | | | | PT | | +--------+ + + + + | 02/18/ | Appointment | Rehabilitation | Erika Ernst, | | | 2019 | | | DO [address] | | | | | | [place] [address] | | | | | | [phone] | | | | | | | | | | | | Genesis Ayon OT | | +--------+ + + + + | 02/25/ | Office | Primary Care | Erika Ernst, | | | 2019 | Visit | | DO [address] [place] | | | | | | [place] [address] | | | | | | [phone] | | | | | | | [...] | | | | | [place] [address] | | | | | | [phone] | | | | | | | | +--------+ + + + + | 02/27/ | Appointment | Radiology | Dhara, | | | 2019 | | | [address] | | | | | | 4TH [facility], | | | | | | [place] [address] | | | | | | [phone] | | | | | | | | +--------+ + + + + | 03/04/ | Appointment | Rehabilitation | Genesis Ayon OT | | | 2019 | | | | | +--------+ + + + + | 03/09/ | Office | Orthopedic Surgery | Jeffrey Gandhi, | | 2019 | Visit | | [address] | | | | | | [place] [address] | | | | | | [phone] | | | | | | | [...] [place] | | | | | | [address] | | | | | | [phone] | | | | | | | [...] | | | | | [place] [address] | | | | | | [phone] | | | | | | | | | | | | Azul Yeboah, | | | | | | MD [address] | | | | | | [place] | | | | | | [place] [address] | | | | | | [phone] | | | | | | | [...] | | | | | | [place] [address] | | | | | | [phone] | | | | | | | | +--------+ + + + + documented as of this encounter Visit Diagnoses Not on filedocumented in this encounter"
--- OUTSIDE RECORDS SUMMARY | ~2020-02-18 | XMS | Encounter Summary ---
Demographics + + + | Address | [address] | | | [place] [address] | + + + | Home Phone [...] Providers + +------+ + | Care Hot Baller Name | Role | Phone | + +------+ + | Erika Ernst DO | PCP | | + +------+ + Reason for Visit + + + | Reason | Comments | + + + | Imaging Only | CT HEAD from [facility] | + + + Encounter Details +--------+ + + + + | Date | Type | Department | Care Team | Description | +--------+ + + + + | 01/25/ | Telephone | [place] [facility] | Luis Nichole MD | Imaging Only (CT | | 2019 | | [facility] CT [address] | [address] [place] | HEAD from [facility] | | | | [address] [place] | [facility] [place] | [facility]) | | | | [facility] [place] | [address] | | | | | [address] | | | | | | [phone] | | | +--------+ + + + [...] | | | | | [place] [address] | | | | | | [phone] | | | | | | | [...] [address] | | | | | | [phone] | | | | | | | | | | | | Genesis Ayon OT | | +--------+ + + + + | 02/25/ | Office | Primary Care | Erika Ernst, | | | 2019 | Visit | | DO [address] [place] | | | | | | [place] [address] | | | | | | [phone] | | | | | | | [...] | | | | | [place] [address] | | | | | | [phone] | | | | | | | | +--------+ + + + + | 02/27/ | Appointment | Radiology | Dhara, | | | 2019 | | | [address] | | | | | | 4TH [facility], | | | | | | [place] [address] | | | | | | [phone] | | | | | | | [...] | | | | | [place] [address] | | | | | | [phone] | | | | | | | [...] [place] | | | | | | [address] | | | | | | [phone] | | | | | | | [...] | | | | | [place] [address] | | | | | | [phone] | | | | | | | | | | | | Azul Yeboah, | | | | | | MD [address] | | | | | | [place] | | | | | | [place] [address] | | | | | | [phone] | | | | | | | [...] | | | | | | [place] [address] | | | | | | [phone] | | | | | | | | +--------+ + + + + documented as of this encounter Visit Diagnoses Not on filedocumented in this encounter"
--- OUTSIDE RECORDS SUMMARY | ~2020-02-18 | XMS | Encounter Summary ---
Demographics + + + | Address | [address] | | | [place] [address] | + + + | Home Phone [...] Providers + +------+ + | Care Master Cosmetologist Name | Role | Phone | + +------+ + | Erika Ernst DO | PCP | | + +------+ + Reason for Visit + + + | Reason | Comments | + + + | Follow-up | Dislocated Jaw | + + + Encounter Details +--------+---------+ + + + | Date | Type | Department | Care Team | Description | +--------+---------+ + + + | 05/27/ | Office | [place] [facility] | Erika Ernst, | TMJ | | 2019 | Visit | [facility] | DO [address] | (temporomandibular | | | | [facility] | [place] [place] [address] | joint disorder) | | | | [address] [facility], | [phone] | (Primary Dx) | | | | [place] [address] | | | | | | [phone] | | | +--------+---------+ + + + [...] + + + | Blood Pressure | 126/86 | 05/27/2019 11:03 AM | | | | | PDT | | + + + + + | Pulse | 80 | 05/27/2019 11:03 AM | | | | | PDT | | + + + + + | Temperature | - | - | | + + + + + | Respiratory Rate | 18 | 05/27/2019 11:03 AM | | | | | PDT | | + + + + + | Oxygen Saturation | 98% | 05/27/2019 11:03 AM | | | | | PDT | | + + + + + | Inhaled Oxygen | - | - | | | Concentration | | | | + + + + + | Weight | 170.6 kg (376 lb) | 05/27/2019 11:03 AM | | | | | PDT | | + + + + + | Height | 177.8 cm (5' 10") | 05/27/2019 11:03 AM | | | | | PDT | | + + + + + | Body Mass Index | 53.95 | 05/27/2019 11:03 AM | | | | | PDT | | + + + + + documented in this encounter Progress Erika Cespedes DO - 05/27/2019 11:00 AM PDTFormatting of this note might be different fro m the original. Subjective: Patient ID: Andrea Suh is a 29 y.o. female. States she is following up after dislocating her jaw on the weekend. States she put it back in place her self on the left side. Denies any trauma. She has severe TMJ bilaterally and brittny doss have made referral to oral surgeon at [facility] since she has failed conservative Tx for this. She has appointment in September. She states she saw her Dentist today and he confirmed the j aw is not out of place now. States is still having pain and some swelling on the left. Would like refill on the ultram she has had before and tolerated for pain. VS NL She says she is going hiking today. Encouraged her to stay hydrated with frequent rests. Review of Systems As above Objective: BP 126/86 | Pulse 80 | Resp 18 | Ht 1.778 m (5' 10") | Wt (!) 170.6 kg (376 lb) | LMP 05/18/2019 | SpO2 98% | BMI 53.95 kg/m Physical Exam Constitutional: She is oriented to person, place, and time. She appears well-developed and well-nourished. No distress. HENT: Head: Normocephalic and atraumatic. Mouth/Throat: Oropharynx is clear and moist. Bilateral TM's clear. Does not want to open mouth very wide for exam as understandable. Eyes: Pupils are equal, round, and reactive [...] affect. Her behavior is normal. Assessment: 1. TMJ (temporomandibular joint disorder) Plan: Ultram 50 mg Q 6 hour prn pain and keep appointment as planned with oral surgeon at [facility]. S moises hydrated and do not overdo today with hiking. documented in this en counter Plan of Treatment +--------+ + + + + | Date | Type | Specialty | Care Team | Description | +--------+ + + + + | 02/18/ | Appointment | Rehabilitation | Erika Ernst, | | | 2019 | | | DO [address] | | | | | | [place] [address] | | | | | | [phone] | | | | | | | | | | | | Julia Fisher, | | | | | | PT | | +--------+ + + + + | 02/18/ | Appointment | Rehabilitation | Erika Ernst, | | | 2019 | | | DO [address] [place] | | | | | | [place] [address] | | | | | | [phone] | | | | | | | | | | | | Genesis Ayon OT | | +--------+ + + + + | 02/25/ | Office | Primary Care | Erika Ernst, | | | 2019 | Visit | | DO [address] [place] | | | | | | [place] [address] | | | | | | [phone] | | | | | | | [...] | | | | | [place] [address] | | | | | | [phone] | | | | | | | | +--------+ + + + + | 02/27/ | Appointment | Radiology | Dhara, | | | 2019 | | | [address] | | | | | | 4TH [facility] [place], | | | | | | [place] [address] | | | | | | [phone] | | | | | | | [...] [place] | | | | | | [place] [address] | | | | | | [phone] | | | | | | | [...] [place] | | | | | | [address] | | | | | | [phone] | | | | | | | [...] | | | | | [place] [address] | | | | | | [phone] | | | | | | | | | | | | Azul Yeboah, | | | | | | MD [address] | | | | | | [place] | | | | | | [place] [address] | | | | | | [phone] | | | | | | | [...] | | | | | | [place] [address] | | | | | | [phone] | | | | | | | | +--------+ + + + + documented as of this encounter Visit Diagnoses + + | Diagnosis | + + | TMJ (temporomandibular joint disorder) - Primary Temporomandibular joint disorders, | | unspecified | + + documented in this encounter
--- OUTSIDE RECORDS SUMMARY | ~2020-02-18 | XMS | Encounter Summary ---
Demographics + + + | Address | [address] | | | [place] [address] | + + + | Home Phone [...] + +------+ + | Care Parts Counter Representative Name | Role | Phone | [...] | Telephone | [place] [facility] | Keith rEnstleslie Salter, | Other | | 2018 | | [facility] | DO [address] | | | | | [facility] | [place] [address] | | | | | [address] [place], | [phone] | | | | | [place] [address] | | | | | | [phone] | | | +--------+ + + + [...] | | 2019 | | | DO [address] [place] [address] | | | | | | [place], [place] [address] | | | | | | [phone] | | | | | | | | | | | | Julia Fisher, | | | | | | PT | | +--------+ + + + + | 02/18/ | Appointment | Rehabilitation | Erika Ernst, | | | 2019 | | | DO [address] [place] | | | | | | [place] [address] | | | | | | [phone] | | | | | | | | | | | | Genesis Ayon OT | | +--------+ + + + + | 02/25/ | Office | Primary Care | Erika Ernst, | | | 2019 | Visit | | DO [address] [place] | | | | | | [place] [address] | | | | | | [phone] | | | | | | | [...] | | | | | [place] [address] | | | | | | [phone] | | | | | | | | +--------+ + + + + | 02/27/ | Appointment | Radiology | Dhara, | | | 2019 | | | [address] | | | | | | [address] [place], | | | | | | [place] [address] | | | | | | [phone] | | | | | | | [...] | | | | [place] [address] | | | | | | [phone] | | | | | | | [...] [place] | | | | | | [address] | | | | | | [phone] | | | | | | | | +--------+ + + + + | 03/25/ | Appointment | Rehabilitation | Genesis Ayon OT | | 2019 | | | | | +--------+ + + + + | 04/08/ | Office | Neurology | Eirka Ernst, | | | 2019 | Visit | | DO [address] [place] | | | | | | [place] [address] | | | | | | [phone] | | | | | | | | | | | | Azul Yeboah, | | | | | | MD [address] | | | | | | [place] | | | | | | [place] [address] | | | | | | [phone] | | | | | | | [...] | | | | | | [place] [address] | | | | | | [phone] | | | | | | | | +--------+ + + + + documented as of this encounter Visit Diagnoses Not on filedocumented in this encounter"
--- OUTSIDE RECORDS SUMMARY | ~2020-02-18 | XMS | Encounter Summary ---
Demographics + + + | Address | [address] | | | [place] [address] | + + + | Home Phone [...] Team Providers + +------+ + | Care Sink Maker Name | Role | Phone | + +------+ + | Erika Ernst DO | PCP | | + +------+ + Reason for Visit +--------+ + | Reason | Comments | +--------+ + | Other | please call [phone] | +--------+ + Encounter Details +--------+ + + + + | Date | Type | Department | Care Team | Description | +--------+ + + + + | 10/23/ | Telephone | [place] [facility] | Erika Ernst, | Other (please call | | 2019 | | [facility] | DO [address] [place] | [phone]) | | | | [facility] [address] | [facility] [place] [address] | | | | | [address] [place], | [phone] | | | | | [place] [address] | | | | | | [phone] | | | +--------+ + + + [...] | | | | | [place] [address] | | | | | | [phone] | | | | | | | | | | | | Julia Fisher, | | | | | | PT | | +--------+ + + + + | 02/18/ | Appointment | Rehabilitation | Erika Ernst, | | | 2019 | | | DO [address] | | | | | | [place] [address] | | | | | | [phone] | | | | | | | | | | | | Genesis Ayon, OT | | +--------+ + + + + | 02/25/ | Office | Primary Care | Erika Ernst, | | | 2019 | Visit | | DO [address] | | | | | | [place] [address] | | | | | | [phone] | | | | | | | [...] | | | | | [place] [address] | | | | | | [phone] | | | | | | | | +--------+ + + + + | 02/27/ | Appointment | Radiology | Dhara, | | | 2019 | | | DWA[address] | | | | | | [address] [facility], | | | | | | [place] [address] | | | | | | [phone] | | | | | | | | +--------+ + + + + | 03/04/ | Appointment | Rehabilitation | Genesis Ayon OT | | | 2019 | | | | | +--------+ + + + + | 03/09/ | Office | Orthopedic Surgery | Jeffrey Gandhi, | | | 2019 | Visit | | [address] | | | | | | [place] [address] | | | | | | [phone] | | | | | | | [...] [place] | | | | | | [address] | | | | | | [phone] | | | | | | | [...] | | | | | [place] [address] | | | | | | [phone] | | | | | | | | | | | | Azul Yeboah, | | | | | | MD [address] | | | | | | [address] [place] | | | | | | [place] [address] | | | | | | [phone] | | | | | | | [...] | | | | | | [place] [address] | | | | | | [phone] | | | | | | | | +--------+ + + + + documented as of this encounter Visit Diagnoses Not on filedocumented in this encounter"
--- OUTSIDE RECORDS SUMMARY | ~2020-02-18 | XMS | Encounter Summary ---
Demographics + + + | Address | [address] | | | [place] [address] | + + + | Home Phone [...] Team Providers + +------+ + | Care Ramp And Cargo Supervisor Name | Role | Phone | [...] | CENTER [address] [place], [place] | | | | | [place], [place] | [address] | | | | | [address] | | | | | | [phone] | | | +--------+ + + + [...] | | | | | [place] [address] | | | | | | [phone] | | | | | | | | | | | | Julia Fisher, | | | | | | PT | | +--------+ + + + + | 02/18/ | Appointment | Rehabilitation | Erika Ernst, | | | 2019 | | | DO [address] | | | | | | [place] [address] | | | | | | [phone] | | | | | | | | | | | | [facility] | | +--------+ + + + + | 02/25/ | Office | Primary Care | Erika Ernst, | | | 2019 | Visit | | DO [address] | | | | | | [place] [address] | | | | | | [phone] | | | | | | | [...] | | | | | [place] [address] | | | | | | [phone] | | | | | | | | +--------+ + + + + | 02/27/ | Appointment | Radiology | Dhara, | | | 2019 | | | [address] | | | | | | 4TH [facility], | | | | | | [place] [address] | | | | | | [phone] | | | | | | | | +--------+ + + + + | 03/04/ | Appointment | Rehabilitation | [facility] | | | 2019 | | | | | +--------+ + + + + | 03/09/ | Office | Orthopedic Surgery | Jeffrey Gandhi, | | | 2019 | Visit | | [address] [facility] | | | | | | [place] [address] | | | | | | [phone] | | | | | | | [...] [place] | | | | | | [address] | | | | | | [phone] | | | | | | | [...] | | | | | [place] [address] | | | | | | [phone] | | | | | | | | | | | | Azul Yeboah, | | | | | | MD [address] | | | | | | [place] | | | | | | [place] [address] | | | | | | [phone] | | | | | | | [...] | | | | | | [place] [address] | | | | | | [phone] | | | | | | | | +--------+ + + + + documented as of this encounter Visit Diagnoses Not on filedocumented in this encounter"
--- OUTSIDE RECORDS SUMMARY | ~2020-02-18 | XMS | Encounter Summary ---
Demographics + + + | Address | [address] | | | [place] [address] | + + + | Home Phone [...] Team Providers + +------+ + | Care Combat Systems Operator Name | Role | Phone | + +------+ + | Erika Ernst DO | PCP | | + +------+ + Reason for Visit +--------+ + | Reason | Comments | +--------+ + | Other | Order needed | +--------+ + Encounter Details +--------+ + + + + | Date | Type | Department | Care Team | Description | +--------+ + + + + | 06/26/ | Telephone | [facility] [facility] | Inocencio Noriega | Other (Order needed) | | 2019 | | [facility] | MD Malcolm [address] | | | | | [address] | [address] [place] | | | | | [place], [place] | [place] [address] | | | | | [address] | [phone] | | | | | [phone] | | | +--------+ + + + [...] | | | | | [place] [address] | | | | | | [phone] | | | | | | | | | | | | Julia Fisher, | | | | | | PT | | +--------+ + + + + | 02/18/ | Appointment | Rehabilitation | Erika Ernst, | | | 2019 | | | DO [address] | | | | | | [place] [address] | | | | | | [phone] | | | | | | | | | | | | [facility] | | +--------+ + + + + | 02/25/ | Office | Primary Care | Erika Ernst, | | | 2019 | Visit | | DO [address] | | | | | | [place] [address] | | | | | | [phone] | | | | | | | [...] | | | | | [place] [address] | | | | | | [phone] | | | | | | | | +--------+ + + + + | 02/27/ | Appointment | Radiology | Dhara, | | | 2019 | | | [address] | | | | | | 4TH [facility], | | | | | | [place] [address] | | | | | | [phone] | | | | | | | | +--------+ + + + + | 03/04/ | Appointment | Rehabilitation | [facility] | | | 2019 | | | | | +--------+ + + + + | 03/09/ | Office | Orthopedic Surgery | Jeffrey Gandhi, | | | 2019 | Visit | | [address] | | | | | | [place] [address] | | | | | | [phone] | | | | | | | [...] [place] | | | | | | [address] | | | | | | [phone] | | | | | | | [...] | | | | | [place] [address] | | | | | | [phone] | | | | | | | | | | | | Azul Yeboah, | | | | | | MD [address] | | | | | | [place] | | | | | | [place] [address] | | | | | | [phone] | | | | | | | [...] | | | | | | [place] [address] | | | | | | [phone] | | | | | | | | +--------+ + + + + documented as of this encounter Visit Diagnoses Not on filedocumented in this encounter"
--- OUTSIDE RECORDS SUMMARY | ~2020-02-18 | XMS | Encounter Summary ---
Demographics + + + | Address | [address] | | | [place] [address] | + + + | Home Phone [...] Team Providers + +------+ + | Care Dust Collector Operator Name | Role | Phone | [...] [address] [place] | [place] [address] | | | | | [place], [place] | [phone] | | | | | [address] | | | | | | [phone] | | | +--------+ + + + [...] | | | | | [place] [address] | | | | | | [phone] | | | | | | | | | | | | Julia Fisher, | | | | | | PT | | +--------+ + + + + | 02/18/ | Appointment | Rehabilitation | Erika Ernst, | | | 2019 | | | DO [address] | | | | | | [place] [address] | | | | | | [phone] | | | | | | | | | | | | [facility] | | +--------+ + + + + | 02/25/ | Office | Primary Care | Erika Ernst, | | | 2019 | Visit | | DO [address] [place] | | | | | | [place] [address] | | | | | | [phone] | | | | | | | [...] | | | | | [place] [address] | | | | | | [phone] | | | | | | | | +--------+ + + + + | 02/27/ | Appointment | Radiology | Dhara, | | 2019 | | | [address] | | | | | | [address] [place], | | | | | | [place] [address] | | | | | | [phone] | | | | | | | | +--------+ + + + + | 03/04/ | Appointment | Rehabilitation | [facility] | | | 2019 | | | | | +--------+ + + + + | 03/09/ | Office | Orthopedic Surgery | Jeffrey Gandhi, | | | 2019 | Visit | | [address] [facility] | | | | | | [place] [address] | | | | | | [phone] | | | | | | | [...] [place] | | | | | | [address] | | | | | | [phone] | | | | | | | [...] | | | | | [place] [address] | | | | | | [phone] | | | | | | | | | | | | Azul Yeboah, | | | | | | MD [address] | | | | | | [place] | | | | | | [place] [address] | | | | | | [phone] | | | | | | | [...] | | | | | | [place] [address] | | | | | | [phone] | | | | | | | [...]
--- OUTSIDE RECORDS SUMMARY | ~2020-02-18 | XMS | Encounter Summary ---
Demographics + + + | Address | [address] | | | [place] [address] | + + + | Home Phone [...] Team Providers + +------+ + | Care Contract Administrative Assistant Name | Role | Phone [...] | | | [place], [place] | [address] | | | | | [address] | [phone] | | | | | [phone] | | | +--------+ + + + [...] | | | | | [place] [address] | | | | | | [phone] | | | | | | | | | | | | Julia Fisher, | | | | | | PT | | +--------+ + + + + | 02/18/ | Appointment | Rehabilitation | Erika Ernst, | | | 2019 | | | DO [address] | | | | | | [place] [address] | | | | | | [phone] | | | | | | | | | | | | [facility] | | +--------+ + + + + | 02/25/ | Office | Primary Care | Erika Ernst, | | | 2019 | Visit | | DO [address] | | | | | | [place] [address] | | | | | | [phone] | | | | | | | | +--------+ + + + + | 02/25/ | Appointment | Rehabilitation | [facility] | | | 2019 | | | | | +--------+ + + + + | 02/26/ | Virtual | Rehabilitation | Usha Rordiguez | | | 2019 | Office | | MD [address] | | | | Visit | | [address] [place] | | | | | | [place] [address] | | | | | | [phone] | | | | | | | | +--------+ + + + + | 02/27/ | Appointment | Radiology | Dhara, | | | 2019 | | | [address] | | | | | | 4TH [facility], | | | | | | [place] [address] | | | | | | [phone] | | | | | | | | +--------+ + + + + | 03/04/ | Appointment | Rehabilitation | [facility] | | | 2019 | | | | | +--------+ + + + + | 03/09/ | Office | Orthopedic Surgery | Jeffrey Gandhi, | | | 2019 | Visit | | [address] | | | | | | [place] [address] | | | | | | [phone] | | | | | | | [...] [place] | | | | | | [address] | | | | | | [phone] | | | | | | | [...] | | | | | [place] [address] | | | | | | [phone] | | | | | | | | | | | | Azul Yeboah, | | | | | | MD [address] | | | | | | [place] | | | | | | [place] [address] | | | | | | [phone] | | | | | | | [...] | | | | | | [place] [address] | | | | | | [phone] | | | | | | | | +--------+ + + + + documented as of this encounter Visit Diagnoses Not on filedocumented in this encounter"
--- OUTSIDE RECORDS SUMMARY | ~2020-02-18 | XMS | Encounter Summary ---
Demographics + + + | Address | [address] | | | [place] [address] | + + + | Home Phone [...] Phone | + + +---------+ + | Bhanva Boss | ECON | Unknown | | + + +---------+ + Care Team Providers + +------+ + | Care Lithographic Printing Machinist Name | Role | Phone | + [...] | Results | | 2019 | | [facility] | DO [address] | | | | | [facility]ICAL [facility] [address] | [place] [address] | | | | | [address] [place], | [phone] | | | | | [place] [address] | | | | | | [phone] | | | +--------+ + + + [...] | | 2019 | | | DO [facility] | | | | | | [place] [address] | | | | | | [phone] | | | | | | | | | | | | Julia Fisher, | | | | | | PT | | +--------+ + + + + | 02/18/ | Appointment | Rehabilitation | Erika Ernst, | | | 2019 | | | DO [address] | | | | | | [place] [address] | | | | | | [phone] | | | | | | | | | | | | [facility] | | +--------+ + + + + | 02/25/ | Office | Primary Care | Erika Ernst, | | | 2019 | Visit | | DO [address] | | | | | | [place] [address] | | | | | | [phone] | | | | | | | [...] | | | | | [place] [address] | | | | | | [phone] | | | | | | | | +--------+ + + + + | 02/27/ | Appointment | Radiology | Dhara, | | | 2019 | | | [address] | | | | | | [address] [place], | | | | | | [place] [address] | | | | | | [phone] | | | | | | | [...] | | | | | [place] [address] | | | | | | [phone] | | | | | | | [...] [place] | | | | | | [address] | | | | | | [phone] | | | | | | | [...] | | | | | [place] [address] | | | | | | [phone] | | | | | | | | | | | | Azul Yeboah, | | | | | | MD [address] | | | | | | [place] | | | | | | [place] [address] | | | | | | [phone] | | | | | | | [...] | | | | | | [place] [address] | | | | | | [phone] | | | | | | | | +--------+ + + + + documented as of this encounter Visit Diagnoses Not on filedocumented in this encounter"
--- OUTSIDE RECORDS SUMMARY | ~2020-02-18 | XMS | Encounter Summary ---
Demographics + + + | Address | [address] | | | [place] [address] | + + + | Home Phone [...] Team Providers + +------+ + | Care Mine Captain Name | Role | Phone | [...] by | | 2019 | Visit | [facility] | CAMP HOUSEKEEPER [address] | swallowing (Primary | | | | MEDICAL [facility] [address] | [place] [address] | Dx) | | | | [address] [place], | [phone] | | | | | [place] [address] | | | | | | [phone] | | | +--------+---------+ + + + [...] | | | | | [place] [address] | | | | | | [phone] | | | | | | | | | | | | Julia Fisher, | | | | | | PT | | +--------+ + + + + | 02/18/ | Appointment | Rehabilitation | Erika Ernst, | | | 2019 | | | DO [address] | | | | | | [place] [address] | | | | | | [phone] | | | | | | | | | | | | [facility] | | +--------+ + + + + | 02/25/ | Office | Primary Care | Erika Ernst, | | | 2019 | Visit | | DO [address] | | | | | | [place] [address] | | | | | | [phone] | | | | | | | [...] | | | | | | [place] [address] | | | | | | [phone] | | | | | | | | +--------+ + + + + | 02/27/ | Appointment | Radiology | Dhara, | | | 2019 | | | [address] | | | | | | 4TH [facility], | | | | | | [place] [address] | | | | | | [phone] | | | | | | | | +--------+ + + + + | 03/04/ | Appointment | Rehabilitation | [facility] | | | 2019 | | | | | +--------+ + + + + | 03/09/ | Office | Orthopedic Surgery | Jeffrey Gandhi, | | | 2019 | Visit | | [address] | | | | | | [place] [address] | | | | | | [phone] | | | | | | | [...] [place] | | | | | | [address] | | | | | | [phone] | | | | | | | [...] | | | | | [place] [address] | | | | | | [phone] | | | | | | | | | | | | Azul Yeboah, | | | | | | MD [address] | | | | | | [place] | | | | | | [place] [address] | | | | | | [phone] | | | | | | | [...] | | | | | | [place] [address] | | | | | | [phone] | | | | | | | | +--------+ + + + + documented as of this encounter Visit Diagnoses + + | Diagnosis | + + | Pain aggravated by swallowing - Primary | + + documented in this encounter
--- OUTSIDE RECORDS SUMMARY | ~2020-02-18 | XMS | Encounter Summary ---
Demographics + + + | Address | [address] | | | [place] [address] | + + + | Home Phone [...] Providers + +------+ + | Care Administrative Professional Name | Role | Phone | [...] [address] | [facility] [place] [address] | | | | | [address] [place], | [phone] | | | | | [place] [address] | | | | | | [phone] | | | +--------+ + + + [...] | | | | | [place] [address] | | | | | | [phone] | | | | | | | | | | | | Julia Fisher, | | | | | | PT | | +--------+ + + + + | 02/18/ | Appointment | Rehabilitation | Erika Ernst, | | | 2019 | | | DO [address] | | | | | | [place] [address] | | | | | | [phone] | | | | | | | | | | | | [facility] | | +--------+ + + + + | 02/25/ | Office | Primary Care | Erika Ernst, | | | 2019 | Visit | | DO [address] | | | | | | [place] [address] | | | | | | [phone] | | | | | | | [...] | | | | | [place] [address] | | | | | | [phone] | | | | | | | | +--------+ + + + + | 02/27/ | Appointment | Radiology | Dhara, | | | 2019 | | | [address] | | | | | | 4TH [facility] [place], | | | | | | [place] [address] | | | | | | [phone] | | | | | | | [...] [place]ORE | | | | | | [place] [address] | | | | | | [phone] | | | | | | | [...] [place] | | | | | | [address] | | | | | | [phone] | | | | | | | [...] | | | | | [place] [address] | | | | | | [phone] | | | | | | | | | | | | Azul Yeboah, | | | | | | MD [address] | | | | | | [place] | | | | | | [place] [address] | | | | | | [phone] | | | | | | | [...] | | [address] [place], | | | | | | [place] [address] | | | | | | [phone] | | | | | | | | +--------+ + + + + documented as of this encounter Visit Diagnoses Not on filedocumented in this encounter"
--- OUTSIDE RECORDS SUMMARY | ~2020-02-18 | XMS | Encounter Summary ---
Demographics + + + | Address | [address] | | | [place] [address] | + + + | Home Phone [...] Team Providers + +------+ + | Care A P Supervisor Name | Role | Phone | [...] persistent | | 2019 | Visit | [facility] | BARN MANAGER-VOICER [address] | asthma with (acute) | | | | [facility] [address] | [address] | exacerbation | | | | [address] [facility] | [place] [address] | (Primary Dx) | | | | [place] [address] | [phone] | | | | | [phone] | | | +--------+---------+ + + + [...] more than every 4 hours, contact your [facility] provider or seek immediate medical attention. [...] don't already have one, talk to your [facility] are provider about developing your own "Asthma [...] turning echevarria or blue Date Last Reviewed: 01/30/201719994403-6723 [employer]. [address] [place] [address], [place] [address]. All righ ts reserved. This information is [...] mouth. Once a week Cholecalciferol (VITAMIN D3) 41895 units TABS Take 1 tablet by mouth [...] pcp. Electronically signed by: Alem Guerrero [id number] [facility] Note: Part of this report was transcribed using voice recognition software. Every effort wa s made to ensure accuracy. However, inadvertent computerized bench worker binding errors may be pre sent. Linh rubin [...] | | | | | [place] [address] | | | | | | [phone] | | | | | | | | | | | | Julia Fisher, | | | | | | PT | | +--------+ + + + + | 02/18/ | Appointment | Rehabilitation | Erika Ernst, | | | 2019 | | | DO [address] | | | | | | [place] [address] | | | | | | [phone] | | | | | | | | | | | | [facility] | | +--------+ + + + + | 02/25/ | Office | Primary Care | Erika Ernst, | | | 2019 | Visit | | DO [address] [place] [address] | | | | | | [place] [address] | | | | | | [phone] | | | | | | | [...] | | | | | [place] [address] | | | | | | [phone] | | | | | | | | +--------+ + + + + | 02/27/ | Appointment | Radiology | Dhara, | | | 2019 | | | [address] | | | | | | [address] [place], | | | | | | [place] [address] | | | | | | [phone] | | | | | | | | +--------+ + + + + | 03/04/ | Appointment | Rehabilitation | [facility] | | | 2019 | | | | | +--------+ + + + + | 03/09/ | Office | Orthopedic Surgery | Jeffrey Gandhi, | | | 2019 | Visit | | [place] [address] [facility] | | | | | | [place] [address] | | | | | | [phone] | | | | | | | [...] [place] | | | | | | [address] | | | | | | [phone] | | | | | | | [...] | | | | | [place] [address] | | | | | | [phone] | | | | | | | | | | | | Azul Yeboah, | | | | | | [address] | | | | | | [place] | | | | | | [place] [address] | | | | | | [phone] | | | | | | | [...] | | | | | | [place] [address] | | | | | | [phone] | | | | | | | | +--------+ + + + + documented as of this encounter Visit Diagnoses + + | Diagnosis | + + | Moderate persistent asthma with (acute) exacerbation - Primary | + + documented in this encounter
--- OUTSIDE RECORDS SUMMARY | ~2020-02-18 | XMS | Encounter Summary ---
Demographics + + + | Address | [address] | | | [place] [address] | + + + | Home Phone [...] Team Providers + +------+ + | Care Surveillance Officer Name | Role | Phone | [...] + | 01/10/ | Telephone | [place] [facility] | Emily Avery | Advice Only | | 2020 | | [facility] | DO [address] | | | | | CL[address] | [address] | | | | | [address] [place], | [place], [place] | | | | | [place] [address] | [address] | | | | | [phone] | [phone] | | | | | | | [...] | | 2019 | | | DO [facility] | | | | | | [place] [address] | | | | | | [phone] | | | | | | | | | | | | Julia Fisher, | | | | | | PT | | +--------+ + + + + | 02/18/ | Appointment | Rehabilitation | Erika Ernst, | | | 2019 | | | DO [address] | | | | | | [place] [address] | | | | | | [phone] | | | | | | | | | | | | [facility] | | +--------+ + + + + | 02/25/ | Office | Primary Care | Erika Ernst, | | | 2019 | Visit | | DO [address] | | | | | | [place] [address] | | | | | | [phone] | | | | | | | [...] | | | | | [place] [address] | | | | | | [phone] | | | | | | | | +--------+ + + + + | 02/27/ | Appointment | Radiology | Dhara, | | | 2019 | | | [address] | | | | | | 4TH [facility], | | | | | | [place] [address] | | | | | | [phone] | | | | | | | | +--------+ + + + + | 03/04/ | Appointment | Rehabilitation | [facility] | | | 2019 | | | | | +--------+ + + + + | 03/09/ | Office | Orthopedic Surgery | Jeffrey Gandhi, | | | 2019 | Visit | | [address] | | | | | | [place] [address] | | | | | | [phone] | | | | | | | [...] [place] | | | | | | [address] | | | | | | [phone] | | | | | | | [...] | | | | | [place] [address] | | | | | | [phone] | | | | | | | | | | | | Azul Yeboah, | | | | | | MD [address] | | | | | | [place] | | | | | | [place] [address] | | | | | | [phone] | | | | | | | [...] | | | | | | [place] [address] | | | | | | [phone] | | | | | | | | +--------+ + + + + documented as of this encounter Visit Diagnoses Not on filedocumented in this encounter"
--- OUTSIDE RECORDS SUMMARY | ~2020-02-18 | XMS | Encounter Summary ---
Demographics + + + | Address | [address] | | | [place] [address] | + + + | Home Phone [...] Team Providers + +------+ + | Care Physical Education Department Chair Name | Role | Phone | + [...] Essential | | 2018 | Visit | [facility] | DO [address] | hypertension | | | | MEDICAL CLINIC [address] | [place] [address] | (Primary Dx); Left | | | | [address] [place], | [phone] | acute otitis media; | | | | [place] [address] | | Increased risk of | | | | [phone] | | breast cancer; | | | [...] (BMI) of 50.0 to 59.9 in adult ([facility]) Plan: Continue current BP med's and monitor. [...] MI | | | | | | [place] [address] | | | | | | [phone] | | | | | | | | | | | | Julia Fisher, | | | | | | PT | | +--------+ + + + + | 02/18/ | Appointment | Rehabilitation | Erika Ernst, | | | 2019 | | | DO [address] [place] | | | | | | [place] [address] | | | | | | [phone] | | | | | | | | | | | | [facility] | | +--------+ + + + + | 02/25/ | Office | Primary Care | Erika Ernst, | | | 2019 | Visit | | DO [address] [place] | | | | | | [place] [address] | | | | | | [phone] | | | | | | | [...] | | | | | [place] [address] | | | | | | [phone] | | | | | | | | +--------+ + + + + | 02/27/ | Appointment | Radiology | Dhara, | | | 2019 | | | [address] | | | | | | [address] [place], | | | | | | [place] [address] | | | | | | [phone] | | | | | | | [...] | | | | | [place] [address] | | | | | | [phone] | | | | | | | [...] [place] | | | | | | [address] | | | | | | [phone] | | | | | | | [...] | | | | | [place] [address] | | | | | | [phone] | | | | | | | | | | | | Azul Yeboah, | | | | | | MD [address] | | | | | | [place] | | | | | | [place] [address] | | | | | | [phone] | | | | | | | [...] | | | | | | [place] [address] | | | | | | [phone] | | | | | | | [...]
--- OUTSIDE RECORDS SUMMARY | ~2020-02-18 | XMS | Encounter Summary ---
Demographics + + + | Address | [address] | | | [place] [address] | + + + | Home Phone [...] Team Providers + +------+ + | Care Front Desk Admin Name | Role | Phone | + [...] | [place], [place] | [place] [address] | | | | | [address] | [phone] | | | | | [phone] | | | +--------+ + + + [...] [place] | | | | | | [place] [address] | | | | | | [phone] | | | | | | | | | | | | Julia Fisher, | | | | | | PT | | +--------+ + + + + | 02/18/ | Appointment | Rehabilitation | Erika Ernst, | | | 2019 | | | DO [address] [place] | | | | | | [place] [address] | | | | | | [phone] | | | | | | | | | | | | Genesis Ayon, OT | | +--------+ + + + + | 02/25/ | Office | Primary Care | Erika Ernst, | | | 2019 | Visit | | DO [address] [place] | | | | | | [place] [address] | | | | | | [phone] | | | | | | | [...] | | | | | [place] [address] | | | | | | [phone] | | | | | | | | +--------+ + + + + | 02/27/ | Appointment | Radiology | Dhara, | | | 2019 | | | DWAINE Ross [address] [place], | | | | | | [place] [address] | | | | | | [phone] | | | | | | | [...] | | | | | | [place] [address] | | | | | | [phone] | | | | | | | [...] [place] | | | | | | [address] | | | | | | [phone] | | | | | | | [...] | | | | | [place] [address] | | | | | | [phone] | | | | | | | | | | | | Azul Yeboah, | | | | | | [address] | | | | | | [place] | | | | | | [place] [address] | | | | | | [phone] | | | | | | | [...] | | | [address] [place], | | | | | | [place] [address] | | | | | | [phone] | | | | | | | | +--------+ + + + + documented as of this encounter Visit Diagnoses Not on filedocumented in this encounter"
--- OUTSIDE RECORDS SUMMARY | ~2020-02-18 | XMS | Encounter Summary ---
Demographics + + + | Address | [address] | | | [place] [address] | + + + | Home Phone [...] Providers + +------+ + | Care Fire Department Marine Engineer Name | Role | Phone | + +------+ + | Erika Ernst DO | PCP | | + +------+ + Encounter Details +--------+ + + + + | Date | Type | Department | Care Team | Description | +--------+ + + + + | 01/15/ | Hospital | [facility] | Inocencio Noriega | Right wrist pain | | 2019 | Encounter | HOSPITAL | MD [facility] [address] | | | | | ORTHOPAEDICS XRAY | [address] [place] | | | | | [address] [place] | [place] [address] | | | | | [place], [place] | [phone] | | | | | [address] | | | | | | [phone] | | | +--------+ + + + [...] | 11/26/19 | | | (VITAMIN D3) 35474 | mouth Once a week | tablet [...] | | | | | [place] [address] | | | | | | [phone] | | | | | | | | | | | | Julia Fisher, | | | | | | PT | | +--------+ + + + + | 02/18/ | Appointment | Rehabilitation | Erika Ernst, | | | 2019 | | | DO [address] | | | | | | [place] [address] | | | | | | [phone] | | | | | | | | | | | | Genesis Ayon OT | | +--------+ + + + + | 02/25/ | Office | Primary Care | Erika Ernst, | | | 2019 | Visit | | DO [address] | | | | | | [place] [address] | | | | | | [phone] | | | | | | | [...] | | | | | [place] [address] | | | | | | [phone] | | | | | | | | +--------+ + + + + | 02/27/ | Appointment | Radiology | Dhara, | | | 2019 | | | DWAINE Ross [address] [place], | | | | | | [place] [address] | | | | | | [phone] | | | | | | | | +--------+ + + + + | 03/04/ | Appointment | Rehabilitation | Genesis Ayon OT | | | 2019 | | | | | +--------+ + + + + | 03/09/ | Office | Orthopedic Surgery | Jeffrey Gandhi, | | | 2019 | Visit | | [address] | | | | | | [place] [address] | | | | | | [phone] | | | | | | | [...] [place] | | | | | | [address] | | | | | | [phone] | | | | | | | [...] | | | | | [place] [address] | | | | | | [phone] | | | | | | | | | | | | Azul Yeboah, | | | | | | MD [address] | | | | | | [place] | | | | | | [place] [address] | | | | | | [phone] | | | | | | | [...] | | | | | | [place] [address] | | | | | | [phone] | | | | | | | | +--------+ + + + + documented as of this encounter Procedures + +--------+ + + + | Procedure Name | Priori | Date/Time | Associated Diagnosis | Comments | | | ty | | | | + +--------+ + + + | XR WRIST RIGHT 3 + | Routin | 01/15/2019 | Right wrist pain | Results for this | | VW | e | 9:52 AM | | procedure are in the | | | | PDT | | results section. | + +--------+ + + + documented in this encounter Results XR Wrist Right 3 + Vw (01/15/2019 [...] + + | Yoni Grullon Results In 01/15/2019 10:02 AM PDT EXAMINATION:XR [...]
--- OUTSIDE RECORDS SUMMARY | ~2020-02-18 | XMS | Encounter Summary ---
Demographics + + + | Address | [address] | | | [place] [address] | + + + | Home Phone [...] Team Providers + +------+ + | Care Veneer Redrier Name | Role | Phone | + [...] | | | | s (de | [place], [place] | [place] [address] | | | | | quervain) | [address] | Phone: | | | | | Pain in | Phone: | [phone] | | | | | right wrist | [phone] | Fax: | | | | | Procedures | Fax: | [phone] | | | | | OT TREAT | [phone] | | +--------+--------+ + + + + [...] | | [address] | [place] [address] | (Primary Dx); Right | | | | [place], [place] | [phone] | wrist pain | | | | [address] | | | | | | [phone] | Nakia Koo OT | | +--------+ [...] | 11/26/19 | | | (VITAMIN D3) 39442 | mouth Once a week | tablet [...] Koo, OT - 12/21/2018 9:31 AM PDT [facility] OT [address] [place] [address] Occupational Therapy Progress Assessment Date: 12/21/2018 Patient [...] jar: 3 - Moderate 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 She does still have deficits in petrography teacher strength and wrist stability as well as pain with daily activities. Her arya b description may be changing which would decrease the physical demands of her work, making it more appropriate for her current status. She continues to benefit from Occupational Thera py to maximize her petrography teacher strength and wrist stability following this injury and return her to prior level of function. 10/30/2018 - REASON FOR RE-CERTIFICATION: Andrea has received 12 Occupational Therapy treatme nts since 08/07/2018 following her right wrist surgery. She has regained full AROM of the rig ht wrist but continues to have right wrist, petrography teacher and pinch weakness and significant pain (3- [...] in 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, and petrography teacher and pinch weakness in the right hand [...] Goal 2: The pt will have right petrography teacher strength of 50 lbs by discharge Goal 2 Status: PARTIALLY MET at PN 12/21/2018 -right petrography teacher strength has stayed stable at 24 l bs this month Goal 4: The pt will be independent and compliant with HEP Goal 4 Status: ONGOING - pt reports daily compliance with HEP which includes wrist, petrography teacher an d pinch strengthening as well as general UE strengthening Plan Date of Onset: 07/20/2018 Start of Care Date: 08/07/2018 Requested # of Visits: 24 visits 2x/week for 12 weeks Certification From: 10/30/2018 Certification To: 01/22/2019 Treatment Plan/Interventions OT [id number] - Therapeutic Tdziccmg71301 - Therapeutic Oydrlbprmf48981 - Self Care/Ho me Lbnguiaofn70980 - Manual Tozemaq53063 - Orthotic/Prosthetic Kxatmqku33925 - Dupaieklkw958 34 - Contrast [id number] - Paraffin BathSplinting Moist heat, cold therapy [...] | | | | | [place] [address] | | | | | | [phone] | | | | | | | | | | | | Julia Fisher, | | | | | | PT | | +--------+ + + + + | 02/18/ | Appointment | Rehabilitation | Erika Ernst, | | | 2019 | | | DO [address] | | | | | | [place] [address] | | | | | | [phone] | | | | | | | | | | | | Genesis Ayon OT | | +--------+ + + + + | 02/25/ | Office | Primary Care | Erika Ernst, | | | 2019 | Visit | | DO [address] | | | | | | [place] [address] | | | | | | [phone] | | | | | | | [...] | | | | | | [place] [address] | | | | | | [phone] | | | | | | | | +--------+ + + + + | 02/27/ | Appointment | Radiology | Dhara, | | | 2019 | | | DWAINE Ross [address] [place], | | | | | | [place] [address] | | | | | | [phone] | | | | | | | | +--------+ + + + + | 03/04/ | Appointment | Rehabilitation | Genesis Ayon OT | | | 2019 | | | | | +--------+ + + + + | 03/09/ | Office | Orthopedic Surgery | Jeffrey Gandhi, | | | 2019 | Visit | | [address] [facility] | | | | | | [place] [address] | | | | | | [phone] | | | | | | | [...] [place] | | | | | | [address] | | | | | | [phone] | | | | | | | [...] | | | | | [place] [address] | | | | | | [phone] | | | | | | | | | | | | Azul Yeboah, | | | | | | MD [address] | | | | | | [place] | | | | | | [place] [address] | | | | | | [phone] | | | | | | | [...] | | | | | | [place] [address] | | | | | | [phone] | | | | | | | | +--------+ + + + + documented as of this encounter Visit Diagnoses + + | Diagnosis | + + | Radial styloid tenosynovitis - Primary | + + | Right wrist pain Pain in joint, forearm | + + documented in this encounter"
--- OUTSIDE RECORDS SUMMARY | ~2020-02-18 | XMS | Encounter Summary ---
Demographics + + + | Address | [address] | | | [place] [address] | + + + | Home Phone [...] + +------+ + | Care Certified Medical Technician Assistant Name | Role | Phone | [...] | [facility] | [place] [address] | | | | [address] [place], | [phone] | | | | | [place] [address] | | | | | | [phone] | | | +--------+ + + + [...] | | | | | [place] [address] | | | | | | [phone] | | | | | | | | | | | | Forma, Julia M, | | | | | | PT | | +--------+ + + + + | 02/18/ | Appointment | Rehabilitation | Erika Ernst, | | | 2019 | | | DO [address] | | | | | | [place] [address] | | | | | | [phone] | | | | | | | | | | | | Genesis Ayon OT | | +--------+ + + + + | 02/25/ | Office | Primary Care | Erika Ernst, | | | 2019 | Visit | | DO [address] | | | | | | [place] [address] | | | | | | [phone] | | | | | | | [...] | | | | | [place] [address] | | | | | | [phone] | | | | | | | | +--------+ + + + + | 02/27/ | Appointment | Radiology | Dhara, | | | 2019 | | | DWAINE [address] | | | | | | [address] [facility], | | | | | | [place] [address] | | | | | | [phone] | | | | | | | [...] ST | | | | | | [place] [address] | | | | | | [phone] | | | | | | | [...] [place] | | | | | | [address] | | | | | | [phone] | | | | | | | [...] | | | | | [place] [address] | | | | | | [phone] | | | | | | | | | | | | Azul Yebaoh, | | | | | | MD [address] | | | | | | [place] | | | | | | [place] [address] | | | | | | [phone] | | | | | | | [...] | | | | | | [place] [address] | | | | | | [phone] | | | | | | | | +--------+ + + + + documented as of this encounter Visit Diagnoses Not on filedocumented in this encounter"
--- OUTSIDE RECORDS SUMMARY | ~2020-02-18 | XMS | Encounter Summary ---
Demographics + + + | Address | [address] | | | [place] [address] | + + + | Home Phone [...] Team Providers + +------+ + | Care And Drying Supervisor Cooking Casing Name | Role | Phone | + +------+ + | Erika Ernst DO | PCP | | + +------+ + Reason for Visit + + + | Reason | Comments | + + + | Ankle Pain | right ankle pain after fall. x1.5 hours ago. | + + + Encounter Details +--------+---------+ + + + | Date | Type | Department | Care Team | Description | +--------+---------+ + + + | 01/10/ | Office | [facility] [facility] | Maryse Langford | Acute right ankle | | 2020 | Visit | [facility] | DWAINE Huynh | pain (Primary Dx) | | | | [facility] | [address] [place] [address] | | | | | [address] [facility], | [place] [address] | | | | | [place] [address] | [phone] | | | | | [phone] | | | +--------+---------+ + + + [...] + + + | Blood Pressure | 137/80 | 01/11/2020 5:17 PM | | | | | PDT | | + + + + + | Pulse | 86 | 01/11/2020 5:17 PM | | | | | PDT | | + + + + + | Temperature | 36.7 C (98 F) | 01/11/2020 5:17 PM | | | | | PDT | | + + + + + | Respiratory Rate | 16 | 01/11/2020 5:17 PM | | | | | PDT | | + + + + + | Oxygen Saturation | 98% | 01/11/2020 5:17 PM | | | | | PDT [...] Instructions Patient Instructions Maryse Langford, DWAINE - 01/11/2020 5:10 PM PDTThank you fo r your time today. Today I saw you for right ankle pain. ? I have ordered an x-ray to be done at [facility]: you may get this done at any time, no appointment is needed and we will call you with results. ? Ice (with a frozen bag of pees or bucket of ice water) 10-15 minutes every 2-3 hours for the first 2-3 days, then decrease to 4 times daily. ? Use crutches and limit weight bearing for the next 2-3 weeks as the ligaments and tendons are recovering. ? Rest, elevate and wear an MINNA wrap for compression to relieve pain. ? If no fracture found on x-ray: Please follow the Sports Medicine guide for stretches and exercise to aid in your recovery, (start after the pain has resolved with walking and moveme nt). ? Take Tylenol decrease pain If no fracture, expect gradual improvement over the next 1-2 weeks, if you are not improvin g please follow-up with your primary care. If you develop a very cold sensation, severe numbness, blue discoloration, severe swelling of the limb or pain out of proportion to the injury please seek care at the emergency room. documented in this encounter Progress Notes Maryse Langford FNP - 01/11/2020 5:10 PM PDT Patient ID: Andrea Suh is a 29 y.o. female. Chief Complaint Patient presents with Ankle Pain right ankle pain after fall. x1.5 hours ago. Assessment: 1. Acute right ankle pain - XR Ankle Right 3 + Vw; Future Plan: New onset. Differentials: Brain, dislocation or fracture. - X-ray was ordered for lateral point tenderness. - Instructed to use crutches and non-weight bearing until able to walk and participate in R OM w/o pain if no fracture present. If fracture present, limit weight-bearing until seen by specialist. - Counseled patient on conservative treatments with RICE, Tylenol to decrease pain and if n o fracture present on x-ray then proceed with gentle stretching/exercises: Sports Medicine h andout provided once able to bear weight and move extremity without pain. - Patient recently took the allergy test that shows that she has an allergy to NSAIDs so sh e does not want to take any NSAIDs - Worrisome s/sx and indications for ED/RTC discussed. - F/u w/ PCP/specialist if no improvement or worsening symptoms prn, advised to expect grad ual improvement over the next 1-2 weeks if no fracture, but if fracture present f/u w/ speci alist. If negative for fracture may resume activity as tolerated after 3-4 weeks. Subjective: History of Present Illness: Andrea [facility] for the following concern(s): Ankle Pain The incident occurred 1 to 3 hours ago. Incident location: Hiking at [facility]. The injury ayan tsang was a fall. The pain is present in the right ankle. Quality: sharp. The pain is at a se verity of 6/10. The pain has been constant since onset. Associated symptoms include a loss o f motion. Pertinent negatives include no inability to bear weight, loss of sensation, muscle weakness, numbness or tingling. She reports no foreign bodies present. The symptoms are agg ravated by movement, palpation and weight bearing. She has tried acetaminophen for the sympt oms. The treatment provided mild relief. All other systems reviewed and negative. History: Active medication list, allergies, medical and social history reviewed with patient. Allergies: She is allergic to latex; lexapro [escitalopram]; ciprofloxacin; deblitane [nore thindrone]; hydrocodone; milk; nickel; uncoded nonscreenable allergen; and adhesive & tape. Objective: Vitals 12/12/2019 12/24/2019 12/26/2019 01/02/2020 01/06/2020 01/10/2020 01/11/2020 SYSTOLIC 124 134 143 110 137 132 137 DIASTOLIC 62 82 98 60 83 78 80 Pulse 77 105 81 80 85 93 86 Temp 97.4 99.1 97.2 97.7 99.1 99.4 98 Resp 18 18 18 16 16 18 16 Weight 360 lbs 357 lbs 355 lbs 354 lbs - 354 lbs - Height - 5' 10" 5' 10" - - - - SPO2 97 98 99 97 96 98 98 BMI - 51.3 kg/m2 51 kg/m2 - - - - Physical Exam Vitals signs reviewed. Constitutional: General: She is not in acute distress. Appearance: She is well-developed. She is not ill-appearing, toxic-appearing or diaphore tic. Musculoskeletal: Right ankle: She exhibits normal range of motion, no swelling, no ecchymosis, no deformi ty, no laceration and normal pulse. Tenderness. Lateral malleolus tenderness found. Achilles tendon normal. Comments: Right foot: neurovascularly intact distally - Walks with a limp - Pain with range of motion of right ankle in all planes, wrist with extension Skin: General: Skin is warm and dry. Capillary Refill: Capillary refill takes less than 2 seconds. Coloration: Skin is not pale. Neurological: Mental Status: She is alert and oriented to person, place, and time. ? All plans were discussed with patient and/or family who verbalized understanding. ? AVS provided. documented in this encounter Plan of Treatment +--------+ + + + + | Date | Type | Specialty | Care Team | Description | +--------+ + + + + | 02/18/ | Appointment | Rehabilitation | Erika Ernst, | | 2019 | | | DO [place] | | | | | | [place] [address] | | | | | | [phone] | | | | | | | | | | | | Julia Fisher, | | | | | | PT | | +--------+ + + + + | 02/18/ | Appointment | Rehabilitation | Erika Ernst, | | | 2019 | | | DO [address] | | | | | | [place] [address] | | | | | | [phone] | | | | | | | | | | | | Genesis Ayon OT | | +--------+ + + + + | 02/25/ | Office | Primary Care | Erika Ernst, | | | 2019 | Visit | | DO [address] | | | | | | [place] [address] | | | | | | [phone] | | | | | | | [...] | | | | | [place] [address] | | | | | | [phone] | | | | | | | | +--------+ + + + + | 02/27/ | Appointment | Radiology | Dhara, | | | 2019 | | | DWAINE Ross [address] | | | | | | [address] [facility] [place], | | | | | | [place] [address] | | | | | | [phone] | | | | | | | [...] | | | | [place] [address] | | | | | | [phone] | | | | | | | [...] [place] | | | | | | [address] | | | | | | [phone] | | | | | | | [...] | | | | | [place] [address] | | | | | | [phone] | | | | | | | | | | | | Azul Yeboah, | | | | | | MD [address] | | | | | | [place] | | | | | | [place] [address] | | | | | | [phone] | | | | | | | [...] | | | | | | [place] [address] | | | | | | [phone] | | | | | | | | +--------+ + + + + documented as of this encounter Results XR Ankle Right 3 + Vw (01/11/2020 6:03 PM PDT) + + | Specimen | + + | | + + + + + | Impressions | Performed At | + + + | No acute process. Dictated by: Braydon Stockton Electronically | [facility] | | Signed by: Braydon Stockton on 01/12/2020 7:48 AM | | + + + + + + | Narrative | Performed At | + + + | EXAMINATION: XR ANKLE RIGHT 3 + VW HISTORY: ankle pain after a | [facility] | | fall COMPARISON STUDY: None FINDINGS: Films in multiple | | | projections show no evidence of an acute fracture. No | | | subluxation. No dislocation. Age appropriate bone mineral | | | density. | | + + + + + | Procedure Note | + + | Mitchel, Rad Results In - 01/12/2020 7:51 AM PDT EXAMINATION:XR ANKLE RIGHT 3 + | | VWHISTORY:ankle pain after a fallCOMPARISON STUDY:NoneFINDINGS:Films in multiple | | projections show no evidence of an acute fracture. No subluxation. No dislocation. | | Age appropriate bone mineral density.IMPRESSION: No acute process.Dictated by: Braydon | | Konstantinam | | | |COMPARISON STUDY: | |None | | | |FINDINGS: | |Films in multiple projections show no evidence of an acute fracture. No subluxation. No dislocation. Age appropriate bone mineral density. | | | |IMPRESSION: | |No [...] + + | Acute right ankle pain - Primary | + + documented in this encounter
--- OUTSIDE RECORDS SUMMARY | ~2020-02-18 | XMS | Encounter Summary ---
Demographics + + + | Address | [address] | | | [place] [address] | + + + | Home Phone [...] Team Providers + +------+ + | Care Property Insurance Inspector Name | Role | Phone | + +------+ + PCP | Unavailable | + +------+ + Encounter Details +--------+ + + + + | Date | Type | Department | Care Team | Description | +--------+ + + + + | 09/03/ | [facility] | Jessica Hoang, | | | 2012 | Encounter | H[facility] XRAY [address] | DATA WAREHOUSE ANALYST [address] | | | | | [place] | [place] | | | | | [place] | [address] | | | | | [address] | | | | | | [phone] | | | +--------+ + + + [...] | | | | | [place] [address] | | | | | | [phone] | | | | | | | | | | | | Julia Fisher, | | | | | | PT | | +--------+ + + + + | 02/18/ | Appointment | Rehabilitation | Erika Ernst, | | | 2019 | | | DO [address] | | | | | | [place] [address] | | | | | | [phone] | | | | | | | | | | | | Genesis Ayon, SUSAN | | +--------+ + + + + | 02/25/ | Office | Primary Care | Erika Ernst, | | | 2019 | Visit | | DO [address] | | | | | | [place] [address] | | | | | | [phone] | | | | | | | [...] | | | | | | [place] [address] | | | | | | [phone] | | | | | | | | +--------+ + + + + | 02/27/ | Appointment | Radiology | Dhara, | | | 2019 | | | DWAINE Ross [address] | | | | | | [address] [facility], | | | | | | [place] [address] | | | | | | [phone] | | | | | | | [...] HOSPITAL | | | | | | [place] [address] | | | | | | [phone] | | | | | | | [...] [place] | | | | | | [address] | | | | | | [phone] | | | | | | | [...] | | | | | [place] [address] | | | | | | [phone] | | | | | | | | | | | | Azul Yeboah, | | | | | | MD [address] | | | | | | [place] | | | | | | [place] [address] | | | | | | [phone] | | | | | | | [...] | | | | | | [place] [address] | | | | | | [phone] | | | | | | | | +--------+ + + + + documented as of this encounter Visit Diagnoses Not on filedocumented in this encounter"
--- OUTSIDE RECORDS SUMMARY | ~2020-02-18 | XMS | Encounter Summary ---
Demographics + + + | Address | [address] | | | [place] [address] | + + + | Home Phone [...] Providers + +------+ + | Care Business Services Sales Agent Name | Role | Phone | [...] pharyngitis | | 2019 | Visit | [facility] | [place] [address] [place] | due to other | | | | [facility] [address] | [facility] [place] [address] | specified organisms | | | | [address] [place], | [phone] | (Primary Dx) | | | | [place] [address] | | | | | | [phone] | | | +--------+---------+ + + + [...] | | | | | [place] [address] | | | | | | [phone] | | | | | | | | | | | | Julia Fisher, | | | | | | PT | | +--------+ + + + + | 02/18/ | Appointment | Rehabilitation | Erika Ernst, | | | 2019 | | | DO [address] [place] | | | | | | [place] [address] | | | | | | [phone] | | | | | | | | | | | | Genesis Ayon OT | | +--------+ + + + + | 02/25/ | Office | Primary Care | Erika Ernst, | | | 2019 | Visit | | DO [address] [place] | | | | | | [place] [address] | | | | | | [phone] | | | | | | | [...] | | | | | [place] [address] | | | | | | [phone] | | | | | | | | +--------+ + + + + | 02/27/ | Appointment | Radiology | Dhara, | | | 2019 | | | DWAINE Ross [address] | | | | | [address] [place], | | | | | | [place] [address] | | | | | | [phone] | | | | | | | [...] | | | | | [place] [address] | | | | | | [phone] | | | | | | | [...] [place] | | | | | | [address] | | | | | | [phone] | | | | | | | [...] | | | | | [place] [address] | | | | | | [phone] | | | | | | | | | | | | Azul Yeboah, | | | | | | MD [address] | | | | | | [place] | | | | | | [place] [address] | | | | | | [phone] | | | | | | | [...] | | | | | | [place] [address] | | | | | | [phone] | | | | | | | [...] + + | [place] [facility] | [address] | [place] | [phone] | | [facility] | | [address] | | + + + + + [...]
--- OUTSIDE RECORDS SUMMARY | ~2020-02-18 | XMS | Encounter Summary ---
Demographics + + + | Address | [address] | | | [place] [address] | + + + | Home Phone [...] +------+ + | Care Associate Professor Of Art History Name | Role | Phone | + +------+ + PCP | Unavailable | + +------+ + Encounter Details +--------+ + + + + | Date | Type | Department | Care Team | Description | +--------+ + + + + | 11/11/ | [facility] | Erika Ernst, | | | 2017 | Encounter | [facility] | DO [address] | | | | | MEDICAL CLIN[facility] [address] | [place] [address] | | | | | [address] MD [place], | [phone] | | | | | [place] [address] | | | | | | [phone] | | | +--------+ + + + [...] | | | | | [place] [address] | | | | | | [phone] | | | | | | | | | | | | Julia Fisher, | | | | | | PT | | +--------+ + + + + | 02/18/ | Appointment | Rehabilitation | Erika Ernst, | | | 2019 | | | DO [address] | | | | | | [place] [address] | | | | | | [phone] | | | | | | | | | | | | Genesis Ayon, OT | | +--------+ + + + + | 02/25/ | Office | Primary Care | Erika Ernst, | | | 2019 | Visit | | DO [address] | | | | | | [place] [address] | | | | | | [phone] | | | | | | | [...] | | | | | [place] [address] | | | | | | [phone] | | | | | | | | +--------+ + + + + | 02/27/ | Appointment | Radiology | Dhara, | | | 2019 | | | [address] | | | | | | [address] [place], | | | | | | [place] [address] | | | | | | [phone] | | | | | | | | +--------+ + + + + | 03/04/ | Appointment | Rehabilitation | Genesis Ayon OT | | | 2019 | | | | | +--------+ + + + + | 03/09/ | Office | Orthopedic Surgery | Jeffrey Gandhi, | | | 2019 | Visit | | [address] [facility] | | | | | | [place] [address] | | | | | | [phone] | | | | | | | [...] and | Emily Avery | | | 2020 | Visit | Gynecology | DO [address] | | | | | | [address] | | | | | | [place], [place] | | | | | | [address] | | | | | | [phone] | | | | | | | [...] | | | | | [place] [address] | | | | | | [phone] | | | | | | | | | | | | Azul Yeboah, | | | | | | MD [address] | | | | | | [place] | | | | | | [place] [address] | | | | | | [phone] | | | | | | | [...] [address] | | | | | | [phone] | | | | | | | | +--------+ + + + + documented as of this encounter Visit Diagnoses Not on filedocumented in this encounter"
--- OUTSIDE RECORDS SUMMARY | ~2020-02-18 | XMS | Encounter Summary ---
Demographics + + + | Address | [address] | | | [place] [address] | + + + | Home Phone [...] Team Providers + +------+ + | Care Draw Operator Name | Role | Phone | [...] | [address] [place], [place] | [place] [address] | | | | | [address] | [phone] | | | | | [phone] | | | +--------+ + + + [...] | | 2019 | | | DO [facility] | | | | | | [place], [place] [address] | | | | | | [phone] | | | | | | | | | | | | Julia Fisher, | | | | | | PT | | +--------+ + + + + | 02/18/ | Appointment | Rehabilitation | Erika Ernst, | | | 2019 | | | DO [address] | | | | | | [place] [address] | | | | | | [phone] | | | | | | | | | | | | Genesis Ayon, SUSAN | | +--------+ + + + + | 02/25/ | Office | Primary Care | Erika Ernst, | | | 2019 | Visit | | DO [address] | | | | | | [place] [address] | | | | | | [phone] | | | | | | | [...] | | | | | [place] [address] | | | | | | [phone] | | | | | | | | +--------+ + + + + | 02/27/ | Appointment | Radiology | Dhara, | | | 2019 | | | [address] | | | | | | [address] [place], | | | | | | [place] [address] | | | | | | [phone] | | | | | | | [...] | | | | | [place] [address] | | | | | | [phone] | | | | | | | [...] [place] | | | | | | [address] | | | | | | [phone] | | | | | | | [...] | | | | | [place] [address] | | | | | | [phone] | | | | | | | | | | | | Azul Yeboah, | | | | | | MD [address] | | | | | | [address] [place] | | | | | | [place] [address] | | | | | | [phone] | | | | | | | [...] | | | | | | [place] [address] | | | | | | [phone] | | | | | | | | +--------+ + + + + documented as of this encounter Visit Diagnoses Not on filedocumented in this encounter"
--- OUTSIDE RECORDS SUMMARY | ~2020-02-18 | XMS | Encounter Summary ---
Demographics + + + | Address | [address] | | | [place] [address] | + + + | Home Phone [...] Team Providers + +------+ + | Care Snath Handle Assembler Name | Role | Phone | + +------+ + PCP | Unavailable | + +------+ + Encounter Details +--------+ + + + + | Date | Type | Department | Care Team | Description | +--------+ + + + + | 09/17/ | [facility] [place] | Denise Mcgregor | | | 2015 | Encounter | [facility] | G, FOOD SAFETY SCIENTIST | | | | | MEDICAL CLIN[facility] [address] | | | | | | [address] [facility] | | | | | | [place] [address] | | | | | | [phone] | | | +--------+ + + + [...] | | | | | [place] [address] | | | | | | [phone] | | | | | | | | | | | | Julia Fisher, | | | | | | PT | | +--------+ + + + + | 02/18/ | Appointment | Rehabilitation | Erika Ernst, | | | 2019 | | | DO [address] | | | | | | [place] [address] | | | | | | [phone] | | | | | | | | | | | | Genesis Ayon OT | | +--------+ + + + + | 02/25/ | Office | Primary Care | Erika Ernst, | | | 2019 | Visit | | DO [address] | | | | | | [place] [address] | | | | | | [phone] | | | | | | | [...] | | | | | [place] [address] | | | | | | [phone] | | | | | | | | +--------+ + + + + | 02/27/ | Appointment | Radiology | Dhara, | | | 2019 | | | [address] | | | | | | 4TH [facility], | | | | | | [place] [address] | | | | | | [phone] | | | | | | | [...] [place] | | | | | | [place] [address] | | | | | | [phone] | | | | | | | [...] [place] | | | | | | [address] | | | | | | [phone] | | | | | | | [...] | | | | | [place] [address] | | | | | | [phone] | | | | | | | | | | | | Azul Yeboah, | | | | | | MD [address] | | | | | | [place] | | | | | | [place] [address] | | | | | | [phone] | | | | | | | [...] | | | | | | [place] [address] | | | | | | [phone] | | | | | | | | +--------+ + + + + documented as of this encounter Visit Diagnoses Not on filedocumented in this encounter"
--- OUTSIDE RECORDS SUMMARY | ~2020-02-18 | XMS | Encounter Summary ---
Demographics + + + | Address | [address] | | | [place] [address] | + + + | Home Phone [...] Team Providers + +------+ + | Care Grants Specialist Name | Role | Phone | [...] | [address] [place], [place] | [place] [address] | | | | | [address] | [phone] | | | | | [phone] | | | +--------+ + + + [...] | | 2019 | | | DO [facility] | | | | | | [place], [place] [address] | | | | | | [phone] | | | | | | | | | | | | Julia Fisher, | | | | | | PT | | +--------+ + + + + | 02/18/ | Appointment | Rehabilitation | Erika Ernst, | | | 2019 | | | DO [address] | | | | | | [place] [address] | | | | | | [phone] | | | | | | | | | | | | Genesis Ayon OT | | +--------+ + + + + | 02/25/ | Office | Primary Care | Erika Ernst, | | | 2019 | Visit | | DO [address] | | | | | | [place] [address] | | | | | | [phone] | | | | | | | [...] | | | | | [place] [address] | | | | | | [phone] | | | | | | | | +--------+ + + + + | 02/27/ | Appointment | Radiology | Dhara, | | | 2019 | | | [address] | | | | | | [address] [place], | | | | | | [place] [address] | | | | | | [phone] | | | | | | | [...] | | | | | [place] [address] | | | | | | [phone] | | | | | | | [...] [place] | | | | | | [address] | | | | | | [phone] | | | | | | | [...] | | | | | [place] [address] | | | | | | [phone] | | | | | | | | | | | | Azul Yeboah, | | | | | | MD [address] | | | | | | [place] [address] [place] | | | | | | [place] [address] | | | | | | [phone] | | | | | | | [...] | | | | | | [place] [address] | | | | | | [phone] | | | | | | | | +--------+ + + + + documented as of this encounter Visit Diagnoses Not on filedocumented in this encounter"
--- OUTSIDE RECORDS SUMMARY | ~2020-02-18 | XMS | Encounter Summary ---
Demographics + + + | Address | [address] | | | [place] [address] | + + + | Home Phone [...] Team Providers + +------+ + | Care Artificial Foliage Arranger Name | Role | Phone | + [...] Essential | | 2018 | Visit | [facility] | DO [address] | hypertension | | | | MEDICAL CLINIC [address] | [place] [address] | (Primary Dx); Asthma | | | | [address] [place], | [phone] | due to | | | | [place] [address] | | environmental | | | | [phone] | | allergies; Asthma, | | | [...] | | | | | [place], [place] [address] | | | | | | [phone] | | | | | | | | | | | | Julia Fisher, | | | | | | PT | | +--------+ + + + + | 02/18/ | Appointment | Rehabilitation | Erika Ernst, | | | 2019 | | | DO [address] | | | | | | [place] [address] | | | | | | [phone] | | | | | | | | | | | | Genesis Ayon OT | | +--------+ + + + + | 02/25/ | Office | Primary Care | Erika Ernst, | | | 2019 | Visit | | DO [address] | | | | | | [place] [address] | | | | | | [phone] | | | | | | | [...] [place] | | | | | | [place] [address] | | | | | | [phone] | | | | | | | | +--------+ + + + + | 02/27/ | Appointment | Radiology | Dhara, | | | 2019 | | | [address] | | | | | | 4TH [facility], | | | | | | [place] [address] | | | | | | [phone] | | | | | | | [...] | | | | | [place] [address] | | | | | | [phone] | | | | | | | [...] [place] | | | | | | [address] | | | | | | [phone] | | | | | | | [...] | | | | | [place] [address] | | | | | | [phone] | | | | | | | | | | | | Azul Yeboah, | | | | | | MD [address] | | | | | | [place] | | | | | | [place] [address] | | | | | | [phone] | | | | | | | [...] | | | | | | [place] [address] | | | | | | [phone] | | | | | | | [...]
--- OUTSIDE RECORDS SUMMARY | ~2020-02-18 | XMS | Encounter Summary ---
Demographics + + + | Address | [address] | | | [place] [address] | + + + | Home Phone [...] Team Providers + +------+ + | Care Airset Molder Name | Role | Phone | [...] | | | | right | [place] [address] | [place] [address] | | | | | Procedures | Phone: | Phone: | | | | | OT EVMIKAYLA AND | [phone] | [phone] | | | | | TREAT | Fax: | Fax: | | | | | | [phone] | [phone] | + + + + + + [...] [address] | [place] [address] | (Primary Dx) | | | | [place], [place] | [phone] | | | | | [address] | | | | | | [phone] | Genesis Ayon, SUSAN | | +--------+ [...] Ayon, OT - 02/11/2020 4:30 PM PDT [facility] OT [address] [place] [address] Occupational Therapy Initial Assessment Date: 02/11/2020 Patient [...] of function and limitations: describes limitations with incident response specialist/pinch due to we akness and pain impacting BADLs/IADLs. Paresthesias of R index and ring finger impacting sle ep. Work status: back to full duty, working for [employer] with increased computer wo rk Living situation: Lives alone in an apartment both in [place] and [place] with a cat Social History Socioeconomic History [...] PROCEDURE 01/20/2016 Surgeon: Fani Mahajan MD; Location: [facility] TENDON RELEASE THYROID FINE NEEDLE ASPIRATION 09/02/2019 Procedure: US GUIDED THYROID FNA - Location: [facility] ULTRASOUND TONSILLECTOMY WISDOM TOOTH EXTRACTION Family History Problem Relation Age of Onset Other (see comment) Mother gallbladder disease Diabetes Mother Heart disease Mother Hypertension Father Other (see comment) Father arrhymthmia Breast cancer Sister Breast cancer Maternal Grandmother Heart attack Maternal Aunt MA Hypertension Maternal Uncle Developmental History Allergies Allergen Reactions Latex Rash Lexapro [Escitalopram] Palpitations Ciprofloxacin Nausea Only Deblitane [Norethindrone] Hydrocodone Hives Milk Unknown Nickel Dermatitis, Itching and Swelling Uncoded Nonscreenable Allergen Other (See Comments) Other reaction(s): Proclivity to C-diff with certain antibiotics Adhesive & Tape Rash Prior Treatment: was receiving OT services at [facility] until October 2019 Objective Pain Assessment: Pain Rating Pre Assessment: 3 Location: wrist Pain/Comfort Presence Of Pain: complains of pain/discomfort Standardized Tests: QuickDASH (QD) Open a tight or new jar: 2 - Mild Difficulty Do heavy senior major gifts officer: 3 - Moderate Difficulty Carry a shopping [...] Wrist Extension: 4+/5 Left Hand Strength - Revenue Cycle Specialist (lbs) L Revenue Cycle Specialist Trial 1: 58 L Revenue Cycle Specialist Trial 2: 40 L Revenue Cycle Specialist Trial 3: 42 L Revenue Cycle Specialist Trial Average: 46.67 L Three Jaw Payam Trial 1: 14 L Three Jaw Payam Trial 2: 13 L Three Jaw Payam Trial 3: 16 L Three Jaw Payam Trial Average: 14.33 L Lateral Pinch Trial 1: 21 L Lateral Pinch Trial 2: 16 L Lateral Pinch Trial 3: 19 L Lateral Pinch Trial Average: 18.67 Right Hand Strength - Revenue Cycle Specialist (lbs) R Revenue Cycle Specialist Trial 1: 20 R Revenue Cycle Specialist Trial 2: 46 R Revenue Cycle Specialist Trial 3: 53 R Revenue Cycle Specialist Trial Average: 39.67 R Three Jaw Payam Trial 1: 11 R Three Jaw Payam Trial 2: 9 R Three Jaw Payam Trial 3: 17 R Three Jaw Payam Trial Average: 12.33 R Lateral Pinch Trial 1: 16 R Lateral Pinch Trial 2: 17 R Lateral Pinch Trial 3: 19 R Lateral Pinch Trial Average: 17.33 Viola-Gurjit: WNL fingertips (2.83) Today's Treatment Patient Name: [...] recently seeing another occupational therap ist at [facility] until October 2019 working to progress strength [...] CTS was not evid enced on MRI. Viola-Gurjit reveals sensation WNL (2.83). Her R incident response specialist average is 7# less t beltre her L incident response specialist and both R pinches are ~2# less than L. Of note, when distracted, her max R g rip was 53# and L incident response specialist range from 58, 40, 42# and her [...] 02/11/2020 Certification To: 05/05/2020 Treatment Plan/Interventions OT [id number] - Therapeutic [id number] - Therapeutic [id number] - Neuromuscula r Re-[id number] - Self Care/Home [id number] - Manual Lyucysv60643 - Vrjqgybvru58384 - Paraffin [id number] - Contrast Dfcj00823 - TENS Application/Instruction Laser Patient and/or family has indicated understanding of treatment needs and actively participa everardo in the creation of this plan for care. Electronically signed by: Genesis Ayon OT, 02/13/2020 9:18 AM Patient Name: Adnrea Suh/: 1990/ documented in this en counter Plan of Treatment +--------+ + + + + | Date | Type | Specialty | Care Team | Description | +--------+ + + + + | 02/18/ | Appointment | Rehabilitation | Erika Ernst, | | 2019 | | | DO [address] | | | | | | [place] [address] | | | | | | [phone] | | | | | | | | | | | | Julia Fisher, | | | | | | PT | | +--------+ + + + + | 02/18/ | Appointment | Rehabilitation | Erika Ernst, | | | 2019 | | | DO [address] | | | | | | [place] [address] | | | | | | [phone] | | | | | | | | | | | | Genesis Ayon OT | | +--------+ + + + + | 02/25/ | Office | Primary Care | Erika Ernst, | | | 2019 | Visit | | DO [address] | | | | | | [place] [address] | | | | | | [phone] | | | | | | | [...] | | | | | [place] [address] | | | | | | [phone] | | | | | | | | +--------+ + + + + | 02/27/ | Appointment | Radiology | Dhara, | | | 2019 | | | [address] | | | | | | 4TH [facility], | | | | | | [place] [address] | | | | | | [phone] | | | | | | | | +--------+ + + + + | 03/04/ | Appointment | Rehabilitation | Genesis Ayon OT | | | 2019 | | | | | +--------+ + + + + | 03/09/ | Office | Orthopedic Surgery | Jeffrey Gandhi, | | | 2019 | Visit | | [address] [facility] | | | | | | [place] [address] | | | | | | [phone] | | | | | | | [...] [place] | | | | | | [address] | | | | | | [phone] | | | | | | | [...] | | | | | [place] [address] | | | | | | [phone] | | | | | | | | | | | | Azul Yeboah, | | | | | | MD [address] | | | | | | [place] | | | | | | [place] [address] | | | | | | [phone] | | | | | | | [...] | | | | | | [place] [address] | | | | | | [phone] | | | | | | | [...]
--- OUTSIDE RECORDS SUMMARY | ~2020-02-18 | XMS | Encounter Summary ---
Demographics + + + | Address | [address] | | | [place] [address] | + + + | Home Phone [...] Team Providers + +------+ + | Care Pharmaceutical Physician Name | Role | Phone | + [...] | MEDICAL [facility] [address] | [place] [address] | | | | [address] [place], | [phone] | | | | | [place] [address] | | | | | | [phone] | | | +--------+ + + + [...] | | | | | [place] [address] | | | | | | [phone] | | | | | | | | | | | | Julia Fisher, | | | | | | PT | | +--------+ + + + + | 02/18/ | Appointment | Rehabilitation | Erika Ernst, | | | 2019 | | | DO [address] | | | | | | [place] [address] | | | | | | [phone] | | | | | | | | | | | | Genesis Ayon OT | | +--------+ + + + + | 02/25/ | Office | Primary Care | Erika rEnst, | | | 2019 | Visit | | DO [address] | | | | | | [place] [address] | | | | | | [phone] | | | | | | | [...] | | | | | [place] [address] | | | | | | [phone] | | | | | | | | +--------+ + + + + | 02/27/ | Appointment | Radiology | Dhara, | | | 2019 | | | [address] | | | | | | [facility] [facility] | | | | | | [place] [address] | | | | | | [phone] | | | | | | | [...] [place] | | | | | | [place] [address] | | | | | | [phone] | | | | | | | [...] [place] | | | | | | [address] | | | | | | [phone] | | | | | | | [...] | | | | | [place] [address] | | | | | | [phone] | | | | | | | | | | | | Azul Yeboah, | | | | | | MD [address] | | | | | | [place] | | | | | | [place] [address] | | | | | | [phone] | | | | | | | [...] | | | | | | [place] [address] | | | | | | [phone] | | | | | | | | +--------+ + + + + documented as of this encounter Visit Diagnoses Not on filedocumented in this encounter"
--- OUTSIDE RECORDS SUMMARY | ~2020-02-18 | XMS | Encounter Summary ---
Demographics + + + | Address | [address] | | | [place] [address] | + + + | Home Phone [...] Providers + +------+ + | Care Supervisor Winter Name | Role | Phone | + [...] | MEDICAL [facility] [address] | [place] [address] | | | | [address] [place], | [phone] | | | | | [place] [address] | | | | | | [phone] | | | +--------+ + + + [...] | | | | | [place] [address] | | | | | | [phone] | | | | | | | | | | | | Forma, Julia M, | | | | | | PT | | +--------+ + + + + | 02/18/ | Appointment | Rehabilitation | Erika Ernst, | | | 2019 | | | DO [address] | | | | | | [place] [address] | | | | | | [phone] | | | | | | | | | | | | Genesis Ayon OT | | +--------+ + + + + | 02/25/ | Office | Primary Care | Erika Ernst, | | | 2019 | Visit | | DO [address] | | | | | | [place] [address] | | | | | | [phone] | | | | | | | [...] | | | | | [place] [address] | | | | | | [phone] | | | | | | | | +--------+ + + + + | 02/27/ | Appointment | Radiology | Dhara, | | | 2019 | | | [address] | | | | | | 4TH [facility], | | | | | | [place] [address] | | | | | | [phone] | | | | | | | [...] ST | | | | | | [place] [address] | | | | | | [phone] | | | | | | | [...] [place] | | | | | | [address] | | | | | | [phone] | | | | | | | [...] | | | | | [place] [address] | | | | | | [phone] | | | | | | | | | | | | Azul Yeboah, | | | | | | MD [address] | | | | | | [place] | | | | | | [place] [address] | | | | | | [phone] | | | | | | | | +--------+ + + + + | 04/08/ | Appointment | Nutrition | Janel Webster | | | 2019 | | | [place] | | +--------+ + + + + | 05/21/ | Office | Neurology | Dhara, | | | 2019 | Visit | | Cody, UTILITY TENDER CARDING [address] | | | | [address] [place], | | | | | | [place] [address] | | | | | | [phone] | | | | | | | [...] - 1.030 | [place] | | | [place], | | | [place]DE | | | [...] + | [place] | [address] | [place] | [phone] | | [facility] | | [address] | | | [facility] | | | | + + + + + documented in this encounter Visit Diagnoses + + | Diagnosis | + + | Dysuria - Primary | + + documented in this encounter"
--- OUTSIDE RECORDS SUMMARY | ~2020-02-18 | XMS | Encounter Summary ---
Demographics + + + | Address | [address] | | | [place] [address] | + + + | Home Phone [...] Providers + +------+ + | Care Foreign Student Adviser Teacher Name | Role | Phone | + +------+ + PCP | Unavailable | + +------+ + Encounter Details +--------+ + + + + | Date | Type | Department | Care Team | Description | +--------+ + + + + | 11/12/ | [facility] | Caro Zendejas | | | 2013 | Encounter | [facility] | Vale, PROJECT FACILITATOR [address] | | | | | MEDICAL [facility] [address] | [facility], [place] | | | | | [address]TH [facility], | [address] | | | | | [place] [address] | [phone] | | | | | [phone] | | | +--------+ + + + [...] | | | | | [place] [address] | | | | | | [phone] | | | | | | | | | | | | Julia Fisher, | | | | | | PT | | +--------+ + + + + | 02/18/ | Appointment | Rehabilitation | Erika Ernst, | | | 2019 | | | DO [address] | | | | | | [place] [address] | | | | | | [phone] | | | | | | | | | | | | Genesis Ayon, OT | | +--------+ + + + + | 02/25/ | Office | Primary Care | Erika Ernst, | | | 2019 | Visit | | DO [address] | | | | | | [place] [address] | | | | | | [phone] | | | | | | | [...] | | | | | [place] [address] | | | | | | [phone] | | | | | | | | +--------+ + + + + | 02/27/ | Appointment | Radiology | Dhara, | | | 2019 | | | [address] | | | | | | 4TH [facility], | | | | | | [place] [address] | | | | | | [phone] | | | | | | | | +--------+ + + + + | 03/04/ | Appointment | Rehabilitation | Genesis Ayon OT | | | 2019 | | | | | +--------+ + + + + | 03/09/ | Office | Orthopedic Surgery | Jeffrey Gandhi, | | | 2019 | Visit | | [address] | | | | | | [place] [address] | | | | | | [phone] | | | | | | | [...] [place] | | | | | | [address] | | | | | | [phone] | | | | | | | [...] | | | | | [place] [address] | | | | | | [phone] | | | | | | | | | | | | Azul Yeboah, | | | | | | MD [address] | | | | | | [place] [place] | | | | | | [place] [address] | | | | | | [phone] | | | | | | | [...] | | | | | | [place] [address] | | | | | | [phone] | | | | | | | | +--------+ + + + + documented as of this encounter Visit Diagnoses Not on filedocumented in this encounter"
--- OUTSIDE RECORDS SUMMARY | ~2020-02-18 | XMS | Encounter Summary ---
Demographics + + + | Address | [address] | | | [place] [address] | + + + | Home Phone [...] Providers + +------+ + | Care Special Technical Operations Officer Name | Role | Phone | [...] | Other | | 2018 | | [facility] | BAKARI Chapin | | | | | [address] | | | | | | [place] | | | | | | [address] | | | | | | [phone] | | | +--------+ + + + [...] | | | | | [place] [address] | | | | | | [phone] | | | | | | | | | | | | Julia Fisher, | | | | | | PT | | +--------+ + + + + | 02/18/ | Appointment | Rehabilitation | Erika Ernst, | | | 2019 | | | DO [address] | | | | | | [place] [address] | | | | | | [phone] | | | | | | | | | | | | Genesis Ayon OT | | +--------+ + + + + | 02/25/ | Office | Primary Care | Erika Ernst, | | | 2019 | Visit | | DO [address] | | | | | | [place] [address] | | | | | | [phone] | | | | | | | [...] | | | | | [place] [address] | | | | | | [phone] | | | | | | | | +--------+ + + + + | 02/27/ | Appointment | Radiology | Dhara, | | | 2019 | | | [address] | | | | | | [address] [facility], | | | | | | [place] [address] | | | | | | [phone] | | | | | | | [...] | | | | | [place] [address] | | | | | | [phone] | | | | | | | [...] [place] | | | | | | [address] | | | | | | [phone] | | | | | | | [...] | | | | | [place] [address] | | | | | | [phone] | | | | | | | | | | | | Azul Yeboah, | | | | | | MD [address] | | | | | | [place] | | | | | | [place] [address] | | | | | | [phone] | | | | | | | [...] | | | | | | [place] [address] | | | | | | [phone] | | | | | | | | +--------+ + + + + documented as of this encounter Visit Diagnoses Not on filedocumented in this encounter"
--- OUTSIDE RECORDS SUMMARY | ~2020-02-18 | XMS | Encounter Summary ---
Demographics + + + | Address | [address] | | | [place] [address] | + + + | Home Phone [...] Providers + +------+ + | Care Screen Vent Binder Name | Role | Phone | + +------+ + | Erika Ernst DO | PCP | | + +------+ + Encounter Details +--------+ + + + + | Date | Type | Department | Care Team | Description | +--------+ + + + + | 01/10/ | Hospital | [place] [facility] | Maryse Langford | Acute right ankle | | 2020 | Encounter | [facility] | DWAINE Huynh | pain | | | | [address] [place] | [address] | | | | | [place], [place] | [place] [address] | | | | | [address] | [phone] | | | | | [phone] | | | +--------+ + + + [...] 2 puffs into | | 0 | /16/20 | | | 1.25 MCG/ACT inhaler | [...] + + + +---------+ + + | PREDNISONE PO | Take by mouth. 20mg | | 0 | | | | | 2 tablets 3 days 1 | | | | 0 | | | 10/13 3 days 1 tablet | | | | | | | 3 days .5 for 5 | | | | | | | days | | | | | + + [...] [address] | | | | | | [phone] | | | | | | | | | | | | Julia Fisher, | | | | | | PT | | +--------+ + + + + | 02/18/ | Appointment | Rehabilitation | Erika Ernst, | | | 2019 | | | DO [address] | | | | | | [place] [address] | | | | | | [phone] | | | | | | | | | | | | Genesis Ayon OT | | +--------+ + + + + | 02/25/ | Office | Primary Care | KleverErika, | | | 2019 | Visit | | DO [address] [place] [address] [place] | | | | | | [place] [address] | | | | | | [phone] | | | | | | | [...] | | | | | [place] [address] | | | | | | [phone] | | | | | | | | +--------+ + + + + | 02/27/ | Appointment | Radiology | Dhara, | | | 2019 | | | [address] | | | | | [address] [place], | | | | | | [place] [address] | | | | | | [phone] | | | | | | | | +--------+ + + + + | 03/04/ | Appointment | Rehabilitation | Genesis Ayon OT | | | 2019 | | | | | +--------+ + + + + | 03/09/ | Office | Orthopedic Surgery | Jeffrey Gandhi, | | | 2019 | Visit | | [address] [facility] | | | | | | [place] [address] | | | | | | [phone] | | | | | | | [...] [place] | | | | | | [address] | | | | | | [phone] | | | | | | | [...] | | | | | [place] [address] | | | | | | [phone] | | | | | | | | | | | | Azul Yeboah, | | | | | | MD [address] | | | | | | [place] | | | | | | [place] [address] | | | | | | [phone] | | | | | | | [...] | | | | | | [place] [address] | | | | | | [phone] | | | | | | | | +--------+ + + + + documented as of this encounter Procedures + +--------+ + + + | Procedure Name | Priori | Date/Time | Associated Diagnosis | Comments | | | ty | | | | + +--------+ + + + | XR ANKLE RIGHT 3 + | Routin | 01/11/2020 | Acute right ankle | Results for this | | VW | e | 6:03 PM | pain | procedure are in the [...]
--- OUTSIDE RECORDS SUMMARY | ~2020-02-18 | XMS | Encounter Summary ---
Demographics + + + | Address | [address] | | | [place] [address] | + + + | Home Phone [...] Team Providers + +------+ + | Care Milling Machine Operator Gear Name | Role | Phone | + [...] | | | [facility] [address] | [place] [address] | | | | | [address] [facility], | [phone] | | | | | [place] [address] | | | | | | [phone] | | | +--------+ + + + [...] | | | | | [place] [address] | | | | | | [phone] | | | | | | | | | | | | Julia Fisher, | | | | | | PT | | +--------+ + + + + | 02/18/ | Appointment | Rehabilitation | Erika Ernst, | | | 2019 | | | DO [address] [place] | | | | | | [place] [address] | | | | | | [phone] | | | | | | | | | | | | Genesis Ayon OT | | +--------+ + + + + | 02/25/ | Office | Primary Care | Erika Ernst, | | | 2019 | Visit | | DO [address] | | | | | | [place] [address] | | | | | | [phone] | | | | | | | [...] [place] | | | | | | [place] [address] | | | | | | [phone] | | | | | | | | +--------+ + + + + | 02/27/ | Appointment | Radiology | Dhara, | | | 2019 | | | [address] | | | | | | [address] [facility], | | | | | | [place] [address] | | | | | | [phone] | | | | | | | [...] | | | | [place] [address] | | | | | | [phone] | | | | | | | [...] [place] | | | | | | [address] | | | | | | [phone] | | | | | | | [...] | | | | | [place] [address] | | | | | | [phone] | | | | | | | | | | | | Azul Yeboah, | | | | | | MD [address] | | | | | | [place] | | | | | | [place] [address] | | | | | | [phone] | | | | | | | [...] | | | | | | [place] [address] | | | | | | [phone] | | | | | | | | +--------+ + + + + documented as of this encounter Visit Diagnoses Not on filedocumented in this encounter"
--- OUTSIDE RECORDS SUMMARY | ~2020-02-18 | XMS | Encounter Summary ---
Demographics + + + | Address | [address] | | | [place] [address] | + + + | Home Phone [...] Team Providers + +------+ + | Care Green End Worker Name | Role | Phone | [...] otitis | | 2018 | Visit | [facility] | DO [address] | media (Primary Dx); | | | | [facility] | [place] [address] | Elevated blood | | | | [address] [place], | [phone] | pressure reading | | | | [place] [address] | | | | | | [phone] | | | +--------+---------+ + + + [...] | | | DO [address] | | | | | | [place], [place] [address] | | | | | | [phone] | | | | | | | | | | | | Julia Fisher, | | | | | | PT | | +--------+ + + + + | 02/18/ | Appointment | Rehabilitation | Erika Ernst, | | | 2019 | | | DO [address] [place] | | | | | | [place] [address] | | | | | | [phone] | | | | | | | | | | | | Genesis Ayon OT | | +--------+ + + + + | 02/25/ | Office | Primary Care | Erika Ernst, | | | 2019 | Visit | | DO [address] [place] | | | | | | [place] [address] | | | | | | [phone] | | | | | | | [...] | | | | | [place] [address] | | | | | | [phone] | | | | | | | | +--------+ + + + + | 02/27/ | Appointment | Radiology | Dhara, | | | 2019 | | | [address] | | | | | | [address] [place], | | | | | | [place] [address] | | | | | | [phone] | | | | | | | [...] | | | | | [place] [address] | | | | | | [phone] | | | | | | | [...] [place] | | | | | | [address] | | | | | | [phone] | | | | | | | [...] | | | | | [place] [address] | | | | | | [phone] | | | | | | | | | | | | Azul Yeboah, | | | | | | MD [address] | | | | | | [place] | | | | | | [place] [address] | | | | | | [phone] | | | | | | | [...] | | | | | | [place] [address] | | | | | | [phone] | | | | | | | [...]
--- OUTSIDE RECORDS SUMMARY | ~2020-02-18 | XMS | Encounter Summary ---
Demographics + + + | Address | [address] | | | [place] [address] | + + + | Home Phone [...] Providers + +------+ + | Care Water Regulator And Valve Repairer Name | Role | Phone | [...] + + | Closed | Specialty | Oral Surgery | Diagnoses | Klever, | Sivakumar, | | | Services | | TMJ | Erika Salter DO | MD Carlos | | | Required | | (temporomand | [address] | [address] | | | | | ibular joint | [place], | Jitendra Robison | | | | | disorder) | [place] [address] | [address] [place], | | | | | | Phone: | [place] | | | | | | [phone] | [address] | | | | | | Fax: | Phone: | | | | | | [phone] | [phone] | | | | | | | Fax: | | | | | | | [phone] | +--------+ + + + + + Reason for Visit + + + | Reason | Comments | + + + | Follow-up | PT | + + + | Medication Follow-up | Trazadone | + + + Encounter Details +--------+---------+ + + + | Date | Type | Department | Care Team | Description | +--------+---------+ + + + | 05/02/ | Office | [facility] | Erika Ernst, | TMJ | | 2019 | Visit | [facility] | DO [address] | (temporomandibular | | | | [facility] [address] | [place] [address] | joint disorder) | | | | [address] [facility], | [phone] | (Primary Dx); | | | | [place] [address] | | Insomnia due to | | | | [phone] | | other mental | | | | | | disorder; Acute | | | | | | right ankle pain; | | | | | | Asthma due to | | | | | | environmental | | | | | | allergies; S/P right | | | | | | ECU tenosynovectomy | | | | | | on 03/20/19 | +--------+---------+ + + + Social History [...] + + + | Blood Pressure | 142/80 | 05/02/2019 7:28 AM | | | | | PDT | | + + + + + | Pulse | 86 | 05/02/2019 7:28 AM | | | | | PDT | | + + + + + | Temperature | - | - | | + + + + + | Respiratory Rate | 16 | 05/02/2019 7:28 AM | | | | | PDT | | + + + + + | Oxygen Saturation | 99% | 05/02/2019 7:28 AM | | | | | PDT | | + + + + + | Inhaled Oxygen | - | - | | | Concentration | | | | + + + + + | Weight | 166.5 kg (367 lb) | 05/02/2019 7:28 AM | | | | | PDT | | + + + + + | Height | 177.8 cm (5' 10") | 05/02/2019 7:28 AM | | | | | PDT | | + + + + + | Body Mass Index | 52.66 | 05/02/2019 7:28 AM | | | | | PDT | | + + + + + documented in this encounter Erika Kumar DO - 05/02/2019 7:30 AM PDTFormatting of this note might be different fro m the original. Subjective: Patient ID: Andrea Suh is a 29 y.o. female. Here to FU on TMJ. Is severe and has not been helped much by PT and Dr Alvarado ENT agrees is b est to see oral surgeon next. Left with more pain than right and pain is worse now. States t he popping is sl improved with PT. She has insomnia issues and we tried trazodone but she nam d ill SE. We will just stick with melatonin as safest aide for sleep and did discuss increas e exercise daily as sleep benefit. She will be starting OT for her post wrist surgery today. She has appointment with sugar boiler Jun 23 for her asthma. No increased cough or SOB to day. She had a fall on the this month and right ankle remains painful. She had prior hubbard rgery on that ankle and along the inner scar area is some swelling. No redness or warmth or increased weakness. States just got out of bed too quickly that morning and fell. She has ap plied ice to the ankle. Amb is stable. Non-smoker. Review of Systems As above Objective: BP 142/80 | Pulse 86 | Resp 16 | Ht 1.778 m (5' 10") | Wt (!) 166.5 kg (367 lb) | SpO2 99% | BMI 52.66 kg/m Physical Exam Constitutional: She is oriented to person, place, and time. She appears well-developed and well-nourished. No distress. HENT: Head: Normocephalic and atraumatic. Mouth/Throat: Oropharynx is clear and moist. No oropharyngeal exudate. Bilateral TM's clear. Jaw glide with opening and shutting still asymmetrical and with pain. Eyes: Pupils are equal, round, and reactive to light. Conjunctivae and EOM are normal. Cardiovascular: Normal rate, regular rhythm and normal heart sounds. No murmur heard. Pulmonary/Chest: Effort normal and breath sounds normal. No respiratory distress. Musculoskeletal: Edema around inner right ankle area with a well healed scar, no redness or increased warmth of area. Right wrist brace on. Neurological: She is alert and oriented to person, place, and time. Coordination normal. Skin: Capillary refill takes less than 2 seconds. Psychiatric: She has a normal mood and affect. Her behavior is normal. Assessment: 1. TMJ (temporomandibular joint disorder) Ambulatory referral to Oral Maxillofacial Surger y 2. Insomnia due to other mental disorder 3. Acute right ankle pain XR Ankle Right 3 + Vw 4. Asthma due to environmental allergies 5. S/P right ECU tenosynovectomy on 03/20/19 Plan: Referral to [facility] oral surgeon. Xray right ankle and continue ice and elevation as needed. Elaine veras OTC 10-15 mg at HS prn sleep. She will continue plans for OTC for wrist. Keep pulmo nology appointment Jun 23. documented in this en counter Plan of Treatment +--------+ + + + + | Date | Type | Specialty | Care Team | Description | +--------+ + + + + | 02/18/ | Appointment | Rehabilitation | Erika Ernst, | | | 2019 | | | DO [address] | | | | | | [facility] [address] | | | | | | [phone] | | | | | | | | | | | | Julia Fisher, | | | | | | PT | | +--------+ + + + + | 02/18/ | Appointment | Rehabilitation | Erika Ernst, | | | 2019 | | | DO [address] [place] | | | | | | [place] [address] | | | | | | [phone] | | | | | | | | | | | | Genesis Ayon OT | | +--------+ + + + + | 02/25/ | Office | Primary Care | Erika Ernst, | | | 2019 | Visit | | DO [address] [place] | | | | | | [place] [address] | | | | | | [phone] | | | | | | | [...] | | | | | [place] [address] | | | | | | [phone] | | | | | | | | +--------+ + + + + | 02/27/ | Appointment | Radiology | Dhara, | | | 2019 | | | D[address]INE [address] | | | | | | [address] [place], | | | | | | [place] [address] | | | | | | [phone] | | | | | | | [...] | | | | | [place] [address] | | | | | | [phone] | | | | | | | [...] [place] | | | | | | [address] | | | | | | [phone] | | | | | | | [...] | | | | | [place] [address] | | | | | | [phone] | | | | | | | | | | | | Azul Yeboah, | | | | | | MD [address] | | | | | | [place] | | | | | | [place] [address] | | | | | | [phone] | | | | | | | [...] | | | | | | [place] [address] | | | | | | [phone] | | | | | | | | +--------+ + + + + + + +--------+ + + | Name | Type | Priori | Associated Diagnoses | Order Schedule | | | | ty | | | + + +--------+ + + | Ambulatory referral | Outpatient | Routin | TMJ | Ordered: 05/02/2019 | | to Oral | Referral | e | (temporomandibular | | | Maxillofacial | | | joint disorder) | | | Surgery | | | | | + + [...] + | Yoni Grullon Results In - 05/02/2019 9:49 AM PDT [...] | | unspecified | + + | Insomnia due to other mental disorder | + + | Acute right ankle pain | + + | Asthma due to environmental allergies | + + | S/P right ECU tenosynovectomy on 03/20/19 | + + documented in this encounter
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
--- OUTSIDE RECORDS SUMMARY | ~2020-02-18 | XMS | Encounter Summary ---
Demographics + + + | Address | [address] | | | [place] [address] | + + + | Home Phone [...] Team Providers + +------+ + | Care Eyeletter Name | Role | Phone | + [...] | | | right ankle, | [place] [address] | [place] [address] | | | | | subsequent | Phone: | Phone: | | | | | encounter | [phone] | [phone] | | | | | Procedures | Fax: | Fax: | | | | | PT TREAT | [phone] | [phone] | + +--------+ + + + + Encounter Details +--------+ + + + + | Date | Type | Department | Care Team | Description | +--------+ + + + + | 12/10/ | Hospital | [facility] [facility] | Erika Ernst, | Sprain of deltoid | | 2020 | Encounter | HOSPITAL THERAPY PT | DO [address] | ligament of right | | | | [address] | [place] [address] | ankle, subsequent | | | | [place], [place] | [phone] | encounter (Primary | | | | [address] | | Dx) | | | | [phone] | Julia Peña, | | | | | | SUBMARINE WORKER | | +--------+ + + + + [...] tablet by | 90 | 0 | 12/06/19 | | | Fe) MG tablet | mouth three times a | tablet | | 20 | 0 | | | day with meals | [...] tablet by | 60 | 0 | 12/06/19 | | | (ANTIVERT) 25 mg | mouth Twice a day if | tablet | | 20 | 0 | | tablet | needed for | [...] of this encounter Progress Notes Julia Peña, SUBMARINE WORKER - 12/11/2019 1:00 PM PDTFormatting of this note might be differen t from the original. [facility] THERAPY PT [address] [place] [address] Physical Therapy Daily Treatment Note Date: 12/11/2019 Patient Information Patient Name: Andrea Suh Date of : 1990 Age: 29 y.o. Encounter Diagnoses Code Name Primary? S93.421D Sprain of deltoid ligament of right ankle, subsequent encounter Yes Date of Onset: 05/21/2019 Referring Provider: Erika Ernst DO Objective Pain Assessment: Pain Rating Pre Assessment: 2 Pain Rating During Assessment: 3 Pain Rating Post Assessment: 2 Location: R ankle Pain/Comfort Presence Of Pain: complains of pain/discomfort Today's Treatment Patient Name: Andrea Suh/: 1990/ Start Time: 1255 Stop time: 1343 Duration: 48 minutes Timed Treatment Codes: 46 minutes # of PT Visits to Date: 3 Visit Summary: S:Pt states R ankle pain is constant 2/10 even with begining a 5K training p sailaja. A:Pt tolerated session well with only increase in pain to 3/10 with modified tandum stance on Airex pad with ballon tosses. Next Visit Information: Short foot/intrinsics, progress general ankle/foot strengthening, S TM, GT Patient/Caregiver Education Learner: Patient Readiness: Acceptance Method: Explanation Response: Verbalizes Understanding Therapy Interventions HEP: Calf raises with post tib bias, self STM with tennis ball, standing calf strentch, big toe disassication exercises. PT INTERVENTION 1: TE 43min) Calf raises with post tib bias,Baps board #2 lateral, DF/PF, C W and CWW 30 each, TM incline 1% speed. 2.3 10 mins to increase DF. Airex pad with ballon to ss differnent stance:nuetral, narrow, tandem stance1-2 mins each. SL stance B near wall 30se cx3. bosu ball lunge step and side lunge on round side 10 each B. standing calf stretch lean s, standing wall calf stretch. Assessment Rehabilitation potential: Patient demonstrates fair potential to achieve established goals to address the documented impairments by participating in skilled physical therapy services. Goals: Electronically signed by: Julia Peña PTA, 12/11/2019 2:58 PM Patient Name: Andrea Suh/: 1990/ documented [...] | | | | | [place] [address] | | | | | | [phone] | | | | | | | | | | | | Julia Fisher, | | | | | | PT | | +--------+ + + + + | 02/18/ | Appointment | Rehabilitation | Erika Ernst, | | | 2019 | | | DO [address] | | | | | | [place] [address] | | | | | | [phone] | | | | | | | | | | | | Genesis Ayon OT | | +--------+ + + + + | 02/25/ | Office | Primary Care | Erika Ernst, | | | 2019 | Visit | | DO [address] | | | | | | [place] [address] | | | | | | [phone] | | | | | | | [...] | | | | | [place] [address] | | | | | | [phone] | | | | | | | | +--------+ + + + + | 02/27/ | Appointment | Radiology | Dhara, | | | 2019 | | | [address] | | | | | | [address] [facility], | | | | | | [place] [address] | | | | | | [phone] | | | | | | | [...] | | | | | [place] [address] | | | | | | [phone] | | | | | | | [...] [place] | | | | | | [address] | | | | | | [phone] | | | | | | | [...] | | | | | [place] [address] | | | | | | [phone] | | | | | | | | | | | | Azul Yeboah, | | | | | | MD [address] | | | | | | [place] | | | | | | [place] [address] | | | | | | [phone] | | | | | | | [...] | | | | | | [place] [address] | | | | | | [phone] | | | | | | | | +--------+ + + + + documented as of this encounter Visit Diagnoses + + | Diagnosis | + + | Sprain of deltoid ligament of right ankle, subsequent encounter - Primary | + + documented in this encounter"
--- OUTSIDE RECORDS SUMMARY | ~2020-02-18 | XMS | Encounter Summary ---
Demographics + + + | Address | [address] | | | [place] [address] | + + + | Home Phone [...] Providers + +------+ + | Care Cash Applications Clerk Name | Role | Phone | [...] | [facility] | [place] [address] | | | | [address] [place], | [phone] | | | | | [place] [address] | | | | | | [phone] | | | +--------+ + + + [...] | | | | | [place] [address] | | | | | | [phone] | | | | | | | | | | | | Forma, Julia M, | | | | | | PT | | +--------+ + + + + | 02/18/ | Appointment | Rehabilitation | Erika Ernst, | | | 2019 | | | DO [address] | | | | | | [place] [address] | | | | | | [phone] | | | | | | | | | | | | Genesis Ayon OT | | +--------+ + + + + | 02/25/ | Office | Primary Care | Erika Ernst, | | | 2019 | Visit | | DO [address] | | | | | | [place] [address] | | | | | | [phone] | | | | | | | [...] | | | | | [place] [address] | | | | | | [phone] | | | | | | | | +--------+ + + + + | 02/27/ | Appointment | Radiology | Dhara, | | | 2019 | | | [address] | | | | | | [address] [facility], | | | | | | [place] [address] | | | | | | [phone] | | | | | | | [...] ST | | | | | | [place] [address] | | | | | | [phone] | | | | | | | [...] [place] | | | | | | [address] | | | | | | [phone] | | | | | | | [...] | | | | | [place] [address] | | | | | | [phone] | | | | | | | | | | | | Azul Yeboah, | | | | | | MD [address] | | | | | | [place] | | | | | | [place] [address] | | | | | | [phone] | | | | | | | [...] | | | | | | [place] [address] | | | | | | [phone] | | | | | | | | +--------+ + + + + documented as of this encounter Visit Diagnoses Not on filedocumented in this encounter"
--- OUTSIDE RECORDS SUMMARY | ~2020-02-18 | XMS | Encounter Summary ---
Demographics + + + | Address | [address] | | | [place] [address] | + + + | Home Phone [...] Team Providers + +------+ + | Care Operational Risk Manager Name | Role | Phone | [...] Imaging | | 2019 | | [facility] | DO [address] | | | | | [facility] [address] | [place] [address] | | | | | [address] [place], | [phone] | | | | | [place] [address] | | | | | | [phone] | | | +--------+ + + + [...] | | | | | [place] [address] | | | | | | [phone] | | | | | | | | | | | | Julia Fisher, | | | | | | PT | | +--------+ + + + + | 02/18/ | Appointment | Rehabilitation | Erika Ernst, | | | 2019 | | | DO [address] | | | | | | [place] [address] | | | | | | [phone] | | | | | | | | | | | | Genesis Ayon OT | | +--------+ + + + + | 02/25/ | Office | Primary Care | Erika Ernst, | | | 2019 | Visit | | DO [address] | | | | | | [place] [address] | | | | | | [phone] | | | | | | | [...] | | | | | | [place] [address] | | | | | | [phone] | | | | | | | | +--------+ + + + + | 02/27/ | Appointment | Radiology | Dhara, | | | 2019 | | | [address] | | | | | | [address] [place], | | | | | | [place] [address] | | | | | | [phone] | | | | | | | [...] [place] | | | | | | [place] [address] | | | | | | [phone] | | | | | | | [...] [place] | | | | | | [address] | | | | | | [phone] | | | | | | | [...] | | | | | [place] [address] | | | | | | [phone] | | | | | | | | | | | | Azul Yeboah, | | | | | | MD [address] | | | | | | [place] | | | | | | [place] [address] | | | | | | [phone] | | | | | | | [...] | | | | | | [place] [address] | | | | | | [phone] | | | | | | | | +--------+ + + + + documented as of this encounter Visit Diagnoses Not on filedocumented in this encounter"
--- OUTSIDE RECORDS SUMMARY | ~2020-02-18 | XMS | Encounter Summary ---
Demographics + + + | Address | [address] | | | [place] [address] | + + + | Home Phone [...] Team Providers + +------+ + | Care System Sales Consultant Name | Role | Phone [...] + | 03/22/ | Office | [place] [facility] | Catherine Diaz, | Left otitis media | | 2019 | Visit | [facility] | TELEGRAPHIC INSTRUMENT SUPERVISOR [address] | with effusion | | | | [facility] [address] | [place] [address] | | | | | [address] [place], | [phone] | | | | | [place] [address] | | | | | | [phone] | | | +--------+---------+ + + + [...] | 2019 | | | DO [address] [place] [address] | | | | | | [place] [address] | | | | | | [phone] | | | | | | | | | | | | Julia Fisher, | | | | | | PT | | +--------+ + + + + | 02/18/ | Appointment | Rehabilitation | Erika Ernst, | | | 2019 | | | DO [address] | | | | | | [place] [address] | | | | | | [phone] | | | | | | | | | | | | Genesis Ayon, SUSAN | | +--------+ + + + + | 02/25/ | Office | Primary Care | Erika Ernst, | | | 2019 | Visit | | DO [address] | | | | | | [place] [address] | | | | | | [phone] | | | | | | | [...] | | | | | [place] [address] | | | | | | [phone] | | | | | | | | +--------+ + + + + | 02/27/ | Appointment | Radiology | Dhara, | | | 2019 | | | [address] | | | | | | [address] [place], | | | | | | [place] [address] | | | | | | [phone] | | | | | | | [...] | | | | | [place] [address] | | | | | | [phone] | | | | | | | [...] [place] | | | | | | [address] | | | | | | [phone] | | | | | | | [...] | | | | | [place] [address] | | | | | | [phone] | | | | | | | | | | | | Azul Yeboah, | | | | | | MD [address] | | | | | | [place] | | | | | | [place] [address] | | | | | | [phone] | | | | | | | [...] | | | | | | [place] [address] | | | | | | [phone] | | | | | | | [...]
--- OUTSIDE RECORDS SUMMARY | ~2020-02-18 | XMS | Encounter Summary ---
Demographics + + + | Address | [address] | | | [place] [address] | + + + | Home Phone [...] Team Providers + +------+ + | Care Blow Torch Burner Name | Role | Phone | + [...] | 2019 | | HOSPITAL [facility] | BUILDING INSULATION INSTALLER [address] | hand, initial | | | | CENTER [address] | [place], [place] | encounter (Primary | | | | [place] | [address] | Dx) | | | | [address] | | | | | | [phone] | | | +--------+ + + + [...] cannot be sent through Care Everywhere.Hand Contusion (Irish)documented in this encounter Medications at Time of [...] | 04/12/20 | | | (VITAMIN D3) [address] | mouth Once a week | tablet [...] | | | | | [place] [address] | | | | | | [phone] | | | | | | | | | | | | Julia Fisher, | | | | | | PT | | +--------+ + + + + | 02/18/ | Appointment | Rehabilitation | Erika Ernst, | | | 2019 | | | DO [address] | | | | | | [place] [address] | | | | | | [phone] | | | | | | | | | | | | Genesis Ayon OT | | +--------+ + + + + | 02/25/ | Office | Primary Care | Erika Ernst, | | | 2019 | Visit | | DO [address] | | | | | | [place] [address] | | | | | | [phone] | | | | | | | [...] | | | | | [place] [address] | | | | | | [phone] | | | | | | | | +--------+ + + + + | 02/27/ | Appointment | Radiology | Dhara, | | | 2019 | | | [address] | | | | | | [address] [place], | | | | | | [place] [address] | | | | | | [phone] | | | | | | | | +--------+ + + + + | 03/04/ | Appointment | Rehabilitation | Genesis Ayon OT | | | 2019 | | | | | +--------+ + + + + | 03/09/ | Office | Orthopedic Surgery | Jeffrey Gandhi, | | | 2019 | Visit | | [address] | | | | | | [place] [address] | | | | | | [phone] | | | | | | | [...] [place] | | | | | | [address] | | | | | | [phone] | | | | | | | [...] | | | | | [place] [address] | | | | | | [phone] | | | | | | | | | | | | Azul Yeboah, | | | | | | MD [address] | | | | | | [place] | | | | | | [place] [address] | | | | | | [phone] | | | | | | | [...] | | | | | | [place] [address] | | | | | | [phone] | | | | | | | [...]
--- OUTSIDE RECORDS SUMMARY | ~2020-02-18 | XMS | Encounter Summary ---
Demographics + + + | Address | [address] | | | [place] [address] | + + + | Home Phone [...] Providers + +------+ + | Care Belt Changer Name | Role | Phone | [...] | | | of left | [place] [address] | [place] [address] | | | | | ankle, | Phone: | Phone: | | | | | initial | [phone] | [phone] | | | | | encounter | Fax: | Fax: | | | | | Procedures | [phone] | [phone] | | | | | PT EVAL [...] [address] [place] | [place] [address] | encounter (Primary | | | | [place], [place] | [phone] | Dx); Fall on same | | | | [address] | | level from slipping, | | | | [phone] | Nick Barrios I, PT | subsequent [...] be different fro m the original. [facility] THERAPY PT [address] [place] [address] Physical Therapy Daily Treatment Note Date: 08/07/2018 [...] balance exercises well, but continues to require SURVEILLANCE OFFICER with use of hip and ankle strategies [...] in favor of SL heel raise with SURVEILLANCE OFFICER. ONGOING: SLS on even surface 3x30 seconds [...] (15 minutes) SL stance on airex with SURVEILLANCE OFFICER 3x30 sec eyes open/closed e ach // Tandem stance 2x1 minute each foot position SURVEILLANCE OFFICER // DL stance on round bosu 2x1 minute each eyes open/closed SURVEILLANCE OFFICER // additional time required for rest between [...] | | | | | [place] [address] | | | | | | [phone] | | | | | | | | | | | | Julia Fisher, | | | | | | PT | | +--------+ + + + + | 02/18/ | Appointment | Rehabilitation | Erika Ernst, | | | 2019 | | | DO [address] | | | | | | [place] [address] | | | | | | [phone] | | | | | | | | | | | | Genesis Ayon OT | | +--------+ + + + + | 02/25/ | Office | Primary Care | Erika Ernst, | | | 2019 | Visit | | DO [address] [place] [address] | | | | | | [place] [address] | | | | | | [phone] | | | | | | | [...] | | | | | [place] [address] | | | | | | [phone] | | | | | | | | +--------+ + + + + | 02/27/ | Appointment | Radiology | Dhara, | | | 2019 | | | [address] | | | | | | [address] [place], | | | | | | [place] [address] | | | | | | [phone] | | | | | | | | +--------+ + + + + | 03/04/ | Appointment | Rehabilitation | Genesis Ayon OT | | | 2019 | | | | | +--------+ + + + + | 03/09/ | Office | Orthopedic Surgery | Jeffrey Gandhi, | | | 2019 | Visit | | [address] | | | | | | [place] [address] | | | | | | [phone] | | | | | | | [...] [place] | | | | | | [address] | | | | | | [phone] | | | | | | | [...] | | | | | [place] [address] | | | | | | [phone] | | | | | | | | | | | | Azul Yeboah, | | | | | | [address] | | | | | | [place] | | | | | | [place] [address] | | | | | | [phone] | | | | | | | [...] | | | | | | [place] [address] | | | | | | [phone] | | | | | | | | +--------+ + + + + documented as of this encounter Visit Diagnoses + + | Diagnosis | + + | Sprain of left ankle, subsequent encounter - Primary | + + | Fall on same level from slipping, subsequent encounter | + + documented in this encounter
--- OUTSIDE RECORDS SUMMARY | ~2020-02-18 | XMS | Encounter Summary ---
Demographics + + + | Address | [address] | | | [place] [address] | + + + | Home Phone [...] Team Providers + +------+ + | Care Continuing Education Instructor Name | Role | Phone | [...] | Results | | 2019 | | [facility] | DO [address] | | | | | [facility] [address] | [place] [address] | | | | | [address] [place], | [phone] | | | | | [place] [address] | | | | | | [phone] | | | +--------+ + + + [...] | | | | | [place] [address] | | | | | | [phone] | | | | | | | | | | | | Julia Fisher, | | | | | | PT | | +--------+ + + + + | 02/18/ | Appointment | Rehabilitation | Erika Ernst, | | | 2019 | | | DO [address] | | | | | | [place] [address] | | | | | | [phone] | | | | | | | | | | | | Genesis Ayon OT | | +--------+ + + + + | 02/25/ | Office | Primary Care | Erika Ernst, | | | 2019 | Visit | | DO [address] | | | | | | [place] [address] | | | | | | [phone] | | | | | | | [...] | | | | | [place] [address] | | | | | | [phone] | | | | | | | | +--------+ + + + + | 02/27/ | Appointment | Radiology | Dhara, | | | 2019 | | | [address] | | | | | | [address]TH [facility], | | | | | | [place] [address] | | | | | | [phone] | | | | | | | [...] | | | | | [place] [address] | | | | | | [phone] | | | | | | | [...] [place] | | | | | | [address] | | | | | | [phone] | | | | | | | [...] | | | | | [place] [address] | | | | | | [phone] | | | | | | | | | | | | Azul Yeboah, | | | | | | MD [address] | | | | | | [place] | | | | | | [place] [address] | | | | | | [phone] | | | | | | | [...] | | | | | | [place] [address] | | | | | | [phone] | | | | | | | | +--------+ + + + + documented as of this encounter Visit Diagnoses Not on filedocumented in this encounter"
--- OUTSIDE RECORDS SUMMARY | ~2020-02-18 | XMS | Encounter Summary ---
Demographics + + + | Address | [address] | | | [place] [address] | + + + | Home Phone [...] Providers + +------+ + | Care Customer Solutions Teammate Name | Role | Phone | + +------+ + PCP | Unavailable | + +------+ + Encounter Details +--------+ + + + + | Date | Type | Department | Care Team | Description | +--------+ + + + + | 12/17/ [facility] | Erika Ernst, | | | 2016 | Encounter | [facility] | DO [address] | | | | | MEDICAL CL[facility] [address] | [place] [address] | | | | | [address] [place], | [phone] | | | | | [place] [address] | | | | | | [phone] | | | +--------+ + + + [...] | | | | | [place] [address] | | | | | | [phone] | | | | | | | | | | | | Julia Fisher, | | | | | | PT | | +--------+ + + + + | 02/18/ | Appointment | Rehabilitation | Erika Ernst, | | | 2019 | | | DO [address] | | | | | | [place] [address] | | | | | | [phone] | | | | | | | | | | | | Genesis Ayon OT | | +--------+ + + + + | 02/25/ | Office | Primary Care | Erika Ernst, | | | 2019 | Visit | | DO [address] | | | | | | [place] [address] | | | | | | [phone] | | | | | | | [...] | | | | | [place] [address] | | | | | | [phone] | | | | | | | | +--------+ + + + + | 02/27/ | Appointment | Radiology | Dhara, | | | 2019 | | | [address] | | | | | | 4TH [facility], | | | | | | [place] [address] | | | | | | [phone] | | | | | | | | +--------+ + + + + | 03/04/ | Appointment | Rehabilitation | Genesis Ayon OT | | | 2019 | | | | | +--------+ + + + + | 03/09/ | Office | Orthopedic Surgery | Jeffrey Gandhi, | | | 2019 | Visit | | [address] [facility] | | | | | | [place] [address] | | | | | | [phone] | | | | | | | [...] [place] | | | | | | [address] | | | | | | [phone] | | | | | | | [...] | | | | | [place] [address] | | | | | | [phone] | | | | | | | | | | | | Azul Yeboah, | | | | | | MD [address] | | | | | | [place] | | | | | | [place] [address] | | | | | | [phone] | | | | | | | [...] | | | | | | [place] [address] | | | | | | [phone] | | | | | | | | +--------+ + + + + documented as of this encounter Visit Diagnoses Not on filedocumented in this encounter"
--- OUTSIDE RECORDS SUMMARY | ~2020-02-18 | XMS | Encounter Summary ---
Demographics + + + | Address | [address] | | | [place] [address] | + + + | Home Phone [...] Team Providers + +------+ + | Care Apparel Rental Clerk Name | Role | Phone | [...] | Services | | Class 3 | Eirka A, DO | Janel G, RD | | | Required | | severe | [address] | | | | | | obesity due | [place], | | | | | | to excess | [place] [address] | | | | | | calories | Phone: | | | | | | without | [phone] | | | | | | serious | Fax: | | | | | | comorbidity | [phone] | | | | | | with [...] | | | | | [facility] | | | | | [...] | SERVICES [address] | [place] [address] | malignant; Morbid | | | | DR [place], [place] | [phone] | obesity (HCC); Body | | | | [address] | | mass index | | | | [phone] | Janel Webster, | 50.0-59.9, adult | [...] tablet by | 90 | 0 | 03/20/20 | | | Fe) MG tablet | [...] 2 puffs into | | 0 | //20 | | | 1.25 MCG/ACT inhaler | [...] (ULTRAM) | Take 1 tablet by | 120 | 0 | 02/06/20 | | | 50 mg tablet | mouth every 6 hours | tablet | | 20 | 0 | | | as needed. | | | | | + + + +---------+ + + documented as of this encounter Progress Notes Janel Webster, RD - 02/05/2020 1:45 PM PDTAssessment: Dx: obesity Pt concerned that she is losing weight too fast. She says providers are asking if she is st arving herself. Pt reports continued fatigue but is looking to see Dr. Yeboah. She says she has noticed her hair thinning however, during her NFPE, her I did not notice any hair easily coming out and no direct signs of muscle loss. Food diary: 1100calories, pro 46g. Food reca ll: eggs tacos L: tofu chicken salad D: peanut butter sandwich, protein doughnuts, fruit Dri nks: water. Physical activity: walks ~3.5 miles per day. Postive stress relief: walks and re ads, regularly meets with her counselor once per month. EMR wt hx with pt: 12/31: 355.9# 11/07: 262# 09/11: 275# 07/17/19: 384# Height:5'10 Current wt:342# Last RD visit wt: 355.9# BMI:49 Nutrition Diagnosis: Inadequate protein intake r/t lack of understanding of the importance AEB pt food recall ~45g of pro /d with continued weight loss. Intervention: Wt loss 13# since last visit, 11% wt loss x 7 months. Protein and calories have been below recommendations. Reeducated pt on the importance of meeting her protein goals so she does no t have risk of losing muscle. She has had a consistent steady weight loss, would not want he r to be losing more than 2-3# per week. Rec premiere protein drinks to help meet her protein needs. Eeeducated on the importance of balanced food intake throughout the day and making s ure she is not skipping meals. Goals: 1.) protein increase to ~130g per day 2.) Calories 1261-4760 per day 3.) Keep regular meal schedule Pt receptive to education. Pt will keep a food diary for next visit. Monitor/Evaluation: Will monitor wt trends, nutrition related labs and food diary. Scheduled for a revisit in 2 months . Time spent with pt: 35 mins Electronically Signed by: Janel Webster RD 02/05/2020 2:27 PM documented in this encounter Plan of Treatment +--------+ + + + + | Date | Type | Specialty | Care Team | Description | +--------+ + + + + | 02/18/ | Appointment | Rehabilitation | Erika Ernst, | | | 2019 | | | DO [address] | | | | | | [place] [address] | | | | | | [phone] | | | | | | | | | | | | Julia Fisher, | | | | | | PT | | +--------+ + + + + | 02/18/ | Appointment | Rehabilitation | Erika Ernst, | | | 2019 | | | DO [address] | | | | | | [place] [address] | | | | | | [phone] | | | | | | | | | | | | Genesis Ayon, OT | | +--------+ + + + + | 02/25/ | Office | Primary Care | Erika Ernst, | | | 2019 | Visit | | DO [address] | | | | | | [place] [address] | | | | | | [phone] | | | | | | | [...] | | | | | | [place] [address] | | | | | | [phone] | | | | | | | | +--------+ + + + + | 02/27/ | Appointment | Radiology | Dhara, | | | 2019 | | | [address] | | | | | | 4TH [facility], | | | | | | [place] [address] | | | | | | [phone] | | | | | | | | +--------+ + + + + | 03/04/ | Appointment | Rehabilitation | Genesis Ayon OT | | | 2019 | | | | | +--------+ + + + + | 03/09/ | Office | Orthopedic Surgery | Jeffrey Gandhi, | | | 2019 | Visit | | [address] | | | | | | [place] [address] | | | | | | [phone] | | | | | | | [...] [place] | | | | | | [address] | | | | | | [phone] | | | | | | | [...] | | | | | [place] [address] | | | | | | [phone] | | | | | | | | | | | | Azul Yeboah, | | | | | | MD [address] | | | | | | [place] | | | | | | [place] [address] | | | | | | [phone] | | | | | | | [...] | | | | | | 4TH [facility], | | | | | | [place] [address] | | | | | | [phone] | | | | | | | [...]
--- OUTSIDE RECORDS SUMMARY | ~2020-02-18 | XMS | Encounter Summary ---
Demographics + + + | Address | [address] | | | [place] [address] | + + + | Home Phone [...] Team Providers + +------+ + | Care Waiter Waitress Name | Role | Phone | + [...] | 2019 | | [facility] | CONTINUOUS LINTER DRIER OPERATOR | | | | | CENTER [address] | | | | | | [place] | | | | | | [address] | | | | | | [phone] | | | +--------+ + + + [...] | | | | | [place] [address] | | | | | | [phone] | | | | | | | | | | | | Julia Fisher, | | | | | | PT | | +--------+ + + + + | 02/18/ | Appointment | Rehabilitation | Erika Ernst, | | | 2019 | | | DO [address] | | | | | | [place] [address] | | | | | | [phone] | | | | | | | | | | | | Genesis Ayon OT | | +--------+ + + + + | 02/25/ | Office | Primary Care | Erika Ernst, | | | 2019 | Visit | | DO [address] | | | | | | [place] [address] | | | | | | [phone] | | | | | | | [...] | | | | | [place] [address] | | | | | | [phone] | | | | | | | | +--------+ + + + + | 02/27/ | Appointment | Radiology | Dhara, | | | 2019 | | | [address] | | | | | | 4TH [facility] [place], | | | | | | [place] [address] | | | | | | [phone] | | | | | | | [...] | | | | | [place] [address] | | | | | | [phone] | | | | | | | [...] [place] | | | | | | [address] | | | | | | [phone] | | | | | | | | +--------+ + + + + | 03/25/ | Appointment | Rehabilitation | Genesis Ayon OT | | | 2019 | | | | | +--------+ + + + + | 04/08/ | Office | Neurology | Erika Ersnt, | | | 2019 | Visit | | DO [address] | | | | | | [place] [address] | | | | | | [phone] | | | | | | | | | | | | Azul Yeboah, | | | | | | MD [address] | | | | | | [place] | | | | | | [place] [address] | | | | | | [phone] | | | | | | | [...] | | | | | | [place] [address] | | | | | | [phone] | | | | | | | | +--------+ + + + + documented as of this encounter Visit Diagnoses Not on filedocumented in this encounter"
--- OUTSIDE RECORDS SUMMARY | ~2020-02-18 | XMS | Encounter Summary ---
Demographics + + + | Address | [address] | | | [place] [address] | + + + | Home Phone [...] | [facility] | | | and [place] | + [...] Providers + +------+ + | Care Information Security Analyst Name | Role | Phone | [...] | | | MEDICAL CLINIC [address] | [place] [address] | | | | [address] [place], | [phone] | | | | | [place] [address] | | | | | | [phone] | | | +--------+ + + + [...] 2019 | | | DO [address] | | | | | | [place] [address] | | | | | | [phone] | | | | | | | | | | | | Julia Fisher, | | | | | | PT | | +--------+ + + + + | 02/18/ | Appointment | Rehabilitation | Erika Ernst, | | | 2019 | | | DO [address] | | | | | | [place] [address] | | | | | | [phone] | | | | | | | | | | | | Genesis Ayon OT | | +--------+ + + + + | 02/25/ | Office | Primary Care | Erika Ernst, | | | 2019 | Visit | | DO [address] | | | | | | [place] [address] | | | | | | [phone] | | | | | | | [...] | | | | | [place] [address] | | | | | | [phone] | | | | | | | | +--------+ + + + + | 02/27/ | Appointment | Radiology | Dhara, | | | 2019 | | | [address]INE [address] | | | | | | [address] [facility] | | | | | | [place] [address] | | | | | | [phone] | | | | | | | [...] | | | | [place], [place] [address] | | | | | | [phone] | | | | | | | [...] [place] | | | | | | [address] | | | | | | [phone] | | | | | | | [...] | | | | | [place] [address] | | | | | | [phone] | | | | | | | | | | | | Azul Yeboah, | | | | | | MD [address] | | | | | | [place] | | | | | | [place] [address] | | | | | | [phone] | | | | | | | [...] | | | | | | [place] [address] | | | | | | [phone] | | | | | | | [...] + + | [place] [facility] | [address] | [place] | [phone] | | [facility] | | [address] | | + + + + + documented in this encounter Visit Diagnoses + + | Diagnosis | + + | Lymphocytosis - Primary Lymphocytosis (symptomatic) | + + documented in this encounter"
--- OUTSIDE RECORDS SUMMARY | ~2020-02-18 | XMS | Encounter Summary ---
Demographics + + + | Address | [address] | | | [place] [address] | + + + | Home Phone [...] Team Providers + +------+ + | Care Mechanic'S Assistant Name | Role | Phone | + +------+ + PCP | Unavailable | + +------+ + Encounter Details +--------+ + + + + | Date | Type | Department | Care Team | Description | +--------+ + + + + | 12/23/ | Hospital | [place] [facility] | Heather Yip, | | | 2016 | Encounter | HOSPITAL [facility] | CLOTH FINISHING RANGE OPERATOR CHIEF [address] | | | | | [address] [place] | [place] [address] | | | | | [place], [place] | [phone] | | | | | [address] | | | | | | [phone] | | | +--------+ + + + [...] | | | | | [place] [address] | | | | | | [phone] | | | | | | | | | | | | Julia Fisher, | | | | | | PT | | +--------+ + + + + | 02/18/ | Appointment | Rehabilitation | Erika Ernst, | | | 2019 | | | DO [address] | | | | | | [place] [address] | | | | | | [phone] | | | | | | | | | | | | Genesis Ayon OT | | +--------+ + + + + | 02/25/ | Office | Primary Care | Erika Ernst, | | | 2019 | Visit | | DO [address] | | | | | | [place] [address] | | | | | | [phone] | | | | | | | [...] | | | | | [place] [address] | | | | | | [phone] | | | | | | | | +--------+ + + + + | 02/27/ | Appointment | Radiology | Dhara, | | | 2019 | | | [address]WAINE [address] | | | | | | 4TH [facility], | | | | | | [place] [address] | | | | | | [phone] | | | | | | | | +--------+ + + + + | 03/04/ | Appointment | Rehabilitation | Genesis Ayon OT | | | 2019 | | | | | +--------+ + + + + | 03/09/ | Office | Orthopedic Surgery | Jeffrey Gandhi, | | 2019 | Visit | | [address] | | | | | | [place] [address] | | | | | | [phone] | | | | | | | [...] [place] | | | | | | [address] | | | | | | [phone] | | | | | | | [...] | | | | | [place] [address] | | | | | | [phone] | | | | | | | | | | | | Azul Yeboah, | | | | | | MD [address] | | | | | | [place] | | | | | | [place] [address] | | | | | | [phone] | | | | | | | [...] | | | | | | [place] [address] | | | | | | [phone] | | | | | | | | +--------+ + + + + documented as of this encounter Visit Diagnoses Not on filedocumented in this encounter"
--- OUTSIDE RECORDS SUMMARY | ~2020-02-18 | XMS | Encounter Summary ---
Demographics + + + | Address | [address] | | | [place] [address] | + + + | Home Phone [...] Providers + +------+ + | Care Manager Logistic Name | Role | Phone | + [...] + + + + | 12/30/ | Telephone | [place] [facility] | Evelyn Malik, | Care Coordination | | 2019 | | [facility] | Case | | | | | MEDICAL [facility] [address] | Nurses Director-Clinical | | | | | 4TH [facility] [place], | | | | | | [place] [address] | | | | | | [phone] | | | +--------+ + + + [...] | | | | | [place] [address] | | | | | | [phone] | | | | | | | | | | | | Julia Fisher, | | | | | | PT | | +--------+ + + + + | 02/18/ | Appointment | Rehabilitation | Erika Ernst, | | | 2019 | | | DO [address] | | | | | | [place] [address] | | | | | | [phone] | | | | | | | | | | | | Genesis Ayon OT | | +--------+ + + + + | 02/25/ | Office | Primary Care | Erika Ernst, | | | 2019 | Visit | | DO [address] | | | | | | [place] [address] | | | | | | [phone] | | | | | | | [...] | | | | | [place] [address] | | | | | | [phone] | | | | | | | | +--------+ + + + + | 02/27/ | Appointment | Radiology | Dhara, | | | 2019 | | | [address]WAINE [address] | | | | | | 4TH [facility], | | | | | | [place] [address] | | | | | | [phone] | | | | | | | [...] | | | | | [place] [address] | | | | | | [phone] | | | | | | | [...] [place] | | | | | | [address] | | | | | | [phone] | | | | | | | [...] | | | | | [place] [address] | | | | | | [phone] | | | | | | | | | | | | Azul Yeboah, | | | | | | MD [address] | | | | | | [place] | | | | | | [place] [address] | | | | | | [phone] | | | | | | | [...] | | | | | | [place] [address] | | | | | | [phone] | | | | | | | | +--------+ + + + + documented as of this encounter Visit Diagnoses Not on filedocumented in this encounter"
--- OUTSIDE RECORDS SUMMARY | ~2020-02-18 | XMS | Encounter Summary ---
Demographics + + + | Address | [address] | | | [place] [address] | + + + | Home Phone [...] Providers + +------+ + | Care Linen Folder Name | Role | Phone | + +------+ + PCP | Unavailable | + +------+ + Encounter Details +--------+ + + + + | Date | Type | Department | Care Team | Description | +--------+ + + + + | 09/12/ | [facility] | Amparo Timmons | | | 2016 | Encounter | HOSP[facility] | C, TARGET AIRCRAFT TECHNICIAN [address] | | | | | CENTER [address] | [place] | | | | | [place] | [address] | | | | | [address] | | | | | | [phone] | | | +--------+ + + + [...] | | 2020 | | | DO [facility] | | | | | | [facility], [place] [address] | | | | | | [phone] | | | | | | | | | | | | Julia Fisher, | | | | | | PT | | +--------+ + + + + | 02/18/ | Appointment | Rehabilitation | Erika Ernst, | | | 2019 | | | DO [address] | | | | | | [place] [address] | | | | | | [phone] | | | | | | | | | | | | Genesis Ayon, SUSAN | | +--------+ + + + + | 02/25/ | Office | Primary Care | Erika Ernst, | | | 2019 | Visit | | DO [address] | | | | | | [place] [address] | | | | | | [phone] | | | | | | | [...] | | | | | [place] [address] | | | | | | [phone] | | | | | | | | +--------+ + + + + | 02/27/ | Appointment | Radiology | Dhara, | | | 2019 | | | D[address] | | | | | | [address]TH [place], | | | | | | [place] [address] | | | | | | [phone] | | | | | | | [...] | | | | | [place] [address] | | | | | | [phone] | | | | | | | [...] [place] | | | | | | [address] | | | | | | [phone] | | | | | | | [...] | | | | | [place] [address] | | | | | | [phone] | | | | | | | | | | | | Azul Yeboah, | | | | | | MD [address] | | | | | | [place] | | | | | | [place] [address] | | | | | | [phone] | | | | | | | [...] | | | | | | [place] [address] | | | | | | [phone] | | | | | | | | +--------+ + + + + documented as of this encounter Visit Diagnoses Not on filedocumented in this encounter"
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
--- OUTSIDE RECORDS SUMMARY | ~2020-02-18 | XMS | Encounter Summary ---
Demographics + + + | Address | [address] | | | [place] [address] | + + + | Home Phone [...] + + + + | 02/20/ | Telephone | [facility] | Inocencio Noriega | Other (FYI) | | 2019 | | [facility] | MD Malcolm [address] | | | | | [address] [place] | [address] | | | | | [place], [place] | [place] [address] | | | | | [address] | [phone] | | | | | [phone] | | | +--------+ + + + [...] [address] | | | | | | [phone] | | | | | | | | | | | | Julia Fisher, | | | | | | PT | | +--------+ + + + + | 02/18/ | Appointment | Rehabilitation | Erika Ernst, | | | 2019 | | | DO [address] [place] | | | | | | [place] [address] | | | | | | [phone] | | | | | | | | | | | | Genesis Ayon OT | | +--------+ + + + + | 02/25/ | Office | Primary Care | Erika Ernst, | | | 2019 | Visit | | DO [address] [place] | | | | | | [place] [address] | | | | | | [phone] | | | | | | | [...] | | | | | | [place] [address] | | | | | | [phone] | | | | | | | | +--------+ + + + + | 02/27/ | Appointment | Radiology | Dhara, | | | 2019 | | | [address] | | | | | | [address]TH [facility], | | | | | | [place] [address] | | | | | | [phone] | | | | | | | | +--------+ + + + + | 03/04/ | Appointment | Rehabilitation | Genesis Ayon OT | | | 2019 | | | | | +--------+ + + + + | 03/09/ | Office | Orthopedic Surgery | Jeffrey Gandhi, | | | 2019 | Visit | | [address] | | | | | | [place] [address] | | | | | | [phone] | | | | | | | [...] [place] | | | | | | [address] | | | | | | [phone] | | | | | | | [...] | | | | | [place] [address] | | | | | | [phone] | | | | | | | | | | | | Azul Yeboah, | | | | | | [address] | | | | | | [place] | | | | | | [place] [address] | | | | | | [phone] | | | | | | | [...] | | | | | | [place] [address] | | | | | | [phone] | | | | | | | | +--------+ + + + + documented as of this encounter Visit Diagnoses Not on filedocumented in this encounter"
--- OUTSIDE RECORDS SUMMARY | ~2020-02-18 | XMS | Encounter Summary ---
Demographics + + + | Address | [address] | | | [place] [address] | + + + | Home Phone [...] Providers + +------+ + | Care Boiler Attendant Name | Role | Phone | + +------+ + PCP | Unavailable | + +------+ + Encounter Details +--------+ + + + + | Date | Type | Department | Care Team | Description | +--------+ + + + + | [facility] Jesus Cornejo | | | [facility] | Encounter | [facility] | MCKENZIE Keenan [address] | | | | | [facility] [address] | [address] | | | | | [address] [facility] [place], | [place], [place] | | | | | [place] [address] | [address] | | | | | [phone] | [phone] | | | | | | | [...] | | | | | [place] [address] | | | | | | [phone] | | | | | | | | | | | | Julia Fisher, | | | | | | PT | | +--------+ + + + + | 02/18/ | Appointment | Rehabilitation | Erika Ernst, | | | 2019 | | | DO [address] [place] | | | | | | [place] [address] | | | | | | [phone] | | | | | | | | | | | | Genesis Ayon, OT | | +--------+ + + + + | 02/25/ | Office | Primary Care | Erika Ernst, | | | 2019 | Visit | | DO [address] [place] [address] | | | | | | [place] [address] | | | | | | [phone] | | | | | | | [...] | | | | | [place] [address] | | | | | | [phone] | | | | | | | | +--------+ + + + + | 02/27/ | Appointment | Radiology | Dhara, | | | 2019 | | | [address] | | | | | | [address] [place], | | | | | | [place] [address] | | | | | | [phone] | | | | | | | [...] [place] | | | | | | [place] [address] | | | | | | [phone] | | | | | | | [...] [place] | | | | | | [address] | | | | | | [phone] | | | | | | | [...] | | | | | [place] [address] | | | | | | [phone] | | | | | | | | | | | | Azul Yeboah, | | | | | | MD [address] | | | | | | [place] | | | | | | [place] [address] | | | | | | [phone] | | | | | | | [...] | | | | | | [place] [address] | | | | | | [phone] | | | | | | | | +--------+ + + + + documented as of this encounter Visit Diagnoses Not on filedocumented in this encounter"
--- OUTSIDE RECORDS SUMMARY | ~2020-02-18 | XMS | Encounter Summary ---
Demographics + + + | Address | [address] | | | [place] [address] | + + + | Home Phone [...] Team Providers + +------+ + | Care Microbiological Lab Technician Name | Role | Phone [...] Dx) | | 2019 | Visit | [facility] | DWAINE Huynh | | | | | [facility] [address] | [address] [place] [address] | | | | | [address] [facility], | [facility] [place] [address] | | | | | [place] [address] | [phone] | | | | | [phone] | | | +--------+---------+ + + + [...] of Present Illness: [facility] the [facility] for the following concern(s): Skin problem Onset: [...] | | | | | [place] [address] | | | | | | [phone] | | | | | | | | | | | | Julia Fisher, | | | | | | PT | | +--------+ + + + + | 02/18/ | Appointment | Rehabilitation | Erika Ernst, | | | 2019 | | | DO [address] [place] | | | | | | [place] [address] | | | | | | [phone] | | | | | | | | | | | | Genesis Ayon, OT | | +--------+ + + + + | 02/25/ | Office | Primary Care | Erika Ernst, | | | 2019 | Visit | | DO [address] [place] | | | | | | [place] [address] | | | | | | [phone] | | | | | | | [...] | | | | | [place] [address] | | | | | | [phone] | | | | | | | | +--------+ + + + + | 02/27/ | Appointment | Radiology | Dhara, | | | 2019 | | | [address] | | | | | | [address] [place], | | | | | | [place] [address] | | | | | | [phone] | | | | | | | [...] [place] | | | | | | [place] [address] | | | | | | [phone] | | | | | | | [...] [place] | | | | | | [address] | | | | | | [phone] | | | | | | | [...] | | | | | [place] [address] | | | | | | [phone] | | | | | | | | | | | | Azul Yeboah, | | | | | | [address] | | | | | | [place] | | | | | | [place] [address] | | | | | | [phone] | | | | | | | [...] | | | | | | [place] [address] | | | | | | [phone] | | | | | | | | +--------+ + + + + documented as of this encounter Visit Diagnoses + + | Diagnosis | + + | Blister - Primary Other, multiple, and unspecified sites, blister, without mention of | | infection | + + documented in this encounter
--- OUTSIDE RECORDS SUMMARY | ~2020-02-18 | XMS | Clinical Summary ---
Demographics + + + | Address | [address] | | | [place] [address] | + + + | Home Phone | | + + + | Preferred Language | Unknown | + + + | Marital Status | Single | + + + | Scientology Affiliation | Unknown | + + + | Race | Unknown | + + + | Ethnic Group | Unknown | + + + Author + + + | Author | [facility] (Historical as of | | | 05-18-19) | + + + | Organization | [facility] (Historical as of | | | 05-18-19) [...] Team Providers + +------+ + | Care Flat Drier Name | Role | Phone | + [...] Overview: Added automatically from request for surgery [id number] | + + + + + | Complete tear of wrist ligament | 05/31/2018 | + + + + + | Overview: Added automatically from request for surgery [id number] | + + Immunizations + + + [...] - [place] [facility] | L&I - | [id number] | | | | | | [place] | | | | | | | [facility]IF | | | | | + +--------+ +------+-------+---------+ | [employer] | ODS | [id number] | | | | | | HEALTH [...] | | | jayna | | | [address]: | [address] | | | | | | | | | | | | | +- | | | | | | | [address] | | + +--------+ +--------+ + + | ANDREA SUH | Worker | Self | [birth year]/ | Work: | [address] | | | s Comp | | 1989 | +- | [place] | | | | | | [address]: | [address] | | | | | | | | | | | | | +- | | | | | | | [address] | | + +--------+ +--------+ + +
--- OUTSIDE RECORDS SUMMARY | ~2020-02-18 | XMS | Encounter Summary ---
Demographics + + + | Address | [address] | | | [place] [address] | + + + | Home Phone [...] Team Providers + +------+ + | Care Drawer In Dobby Loom Name | Role | Phone | + [...] | [facility] | [place] [address] | | | | [address] [place], | [phone] | | | | | [place] [address] | | | | | | [phone] | | | +--------+ + + + [...] | | | | | [place] [address] | | | | | | [phone] | | | | | | | | | | | | Forma, Julia M, | | | | | | PT | | +--------+ + + + + | 02/18/ | Appointment | Rehabilitation | Erika Ernst, | | | 2019 | | | DO [address] [place] | | | | | | [place] [address] | | | | | | [phone] | | | | | | | | | | | | Genesis Ayon OT | | +--------+ + + + + | 02/25/ | Office | Primary Care | Erika Ernst, | | | 2019 | Visit | | DO [address] [place] | | | | | | [place] [address] | | | | | | [phone] | | | | | | | [...] | | | | | [place] [address] | | | | | | [phone] | | | | | | | | +--------+ + + + + | 02/27/ | Appointment | Radiology | Dhara, | | | 2019 | | | [address] | | | | | | [address]TH [facility], | | | | | | [place] [address] | | | | | | [phone] | | | | | | | [...] ST | | | | | | [place] [address] | | | | | | [phone] | | | | | | | [...] [place] | | | | | | [address] | | | | | | [phone] | | | | | | | [...] | | | | | [place] [address] | | | | | | [phone] | | | | | | | | | | | | Azul Yeboah, | | | | | | MD [address] | | | | | | [place] | | | | | | [place] [address] | | | | | | [phone] | | | | | | | [...] | | | | | | [place] [address] | | | | | | [phone] | | | | | | | | +--------+ + + + + documented as of this encounter Visit Diagnoses Not on filedocumented in this encounter"
--- OUTSIDE RECORDS SUMMARY | ~2020-02-18 | XMS | Encounter Summary ---
Demographics + + + | Address | [address] | | | [place] [address] | + + + | Home Phone [...] Providers + +------+ + | Care Junior Network Engineer Name | Role | Phone | + +------+ + | Erika Ernst DO | PCP | | + +------+ + Reason for Visit + + + | Reason | Comments | + + + | Follow-up, Office | deviated septum | | Visit | | + + + Encounter Details +--------+---------+ + + + | Date | Type | Department | Care Team | Description | +--------+---------+ + + + | 11/28/ | Office | [facility] | Anthony Alvarado MD | Deviated nasal | | 2020 | Visit | [facility] [address] | [address] [place] | septum (Primary Dx); | | | | [address] [place] | [place], [place] | Non-seasonal | | | | [place] | [address] | allergic rhinitis | | | | [address] | [phone] | due to pollen; | | | | [phone] | | Multiple thyroid | | | | | | nodules; Hypertrophy | | | | | | of nasal turbinates | +--------+---------+ + + + Social History [...] +---------+ + + | Blood Pressure | 143/90 | 11/28/2019 9:25 AM | | | | | PST | | + +---------+ + + | Pulse | 77 | 11/28/2019 9:25 AM | | | | | PST | | + +---------+ + + | Temperature | - | - | | + +---------+ + + | Respiratory Rate | 16 | 11/28/2019 9:25 AM | | | | | PST | | + +---------+ + + | Oxygen Saturation | 97% | 11/28/2019 9:25 AM | | | | | PST [...] Instructions Patient Instructions Anthony Alvarado MD - 11/28/2019 9:30 AM PSTUse saline nasal spray in a ddition to your other nasal medications as we discussed. Follow-up with Dr. Alvarado in 2019 after the ultrasound which he ordered.Electronically signed by Anthony Alvarado MD at 10:05 AM PST documented in this encounter Progress Notes Anthony Alvarado MD - 11/28/2019 9:30 AM PST Otolaryngology Follow Up Clinic Note For: Andrea Suh 29 y.o. [id number] On 11/28/2019, Andrea Suh was seen by Anthony Alvarado MD Past Medical History: Patient has previously been seen by myself for temporomandibular joint disorder. She has b een followed by Dr. Wheeler for potential Mnire's disease. On my visit with her in 2018 apart from significant temporomandibular joint tenderness she had a normal comprehen sive examination of the head and neck. Patient was last seen by me on August 01, 2019. She was referred due to a left thyroid no dule 1.1 cm in greatest dimension in the left lower pole and a 5 mm left midpole nodule.. Ricardo samayoa had her ultrasound done due to some tenderness in her neck. At the time I saw her sh e had resumed taking levothyroxine 50 mcg/day. She did not describe any change in her voice , breathing or swallowing. Patient gave a history of 2 maternal aunts who have had thyroid cancer and several cousins who have had thyroid cancer. She is unsure whether or not they received radioiodine. None have from their thyroid cancer. She had no history of ionizing radiation to the neck. Based primarily on her history we made arrangements for her to have an ultrasound-guided fi ne-needle aspiration of the larger of the 2 left thyroid nodules. Patient's ultrasound-guided fine-needle aspiration cytology from the left thyroid nodule on September 02, 2019 was consistent with a benign thyroid nodule. Our plan was a follow-up ultrasound in 1 year. Patient's Primary Provider is Erika Ernst DO Prior Workup Includes: Laboratory: Patient had a normal TSH of 2.3 on October 24, 2019. At that time patient had a normal BMP. Calcium 8.6. Radiology: As above. Patient had a CT scan of the sinuses done on December 13, 2018. This de monstrated no evidence of acute or chronic sinus disease. All sinuses were clear. On this CT scan a significant left septal deviation is noted. Her left septum is in contact with he r left inferior turbinate and insinuates into the left middle meatus. Pathology: Pathology from ultrasound-guided fine-needle aspiration on September 02, 2019: CYTOLOGIC INTERPRETATION: Left Nodule Thyroid needle sampling: Benign - Cyst contents and follicular cells seen ([place] category 2) (see Description) Current History of the present Illness: Based on my review of her electronic health record, she is referred to see me today for a deviated septum. I have previously seen the patient in regard to her thyroid nodules as wel l as temporomandibular joint and allergic rhinitis. In November 2018 she was initiating all ergy immunotherapy and our plan was to see her back in approximately 1 year to see how that had impacted her nasal obstruction. My speaking with her today, she has been on allergy immunotherapy for approximately a year. Her regimen was altered and she is currently on a newer regimen of allergens. She does no te that she is sneezing less and she has had fewer upper respiratory infections. She does c ontinue to have relatively significant nasal obstruction primarily on the left side. She do es believe her nasal obstruction has improved somewhat since beginning the allergy immunothe rapy. Patient has recently had orthodontic appliances placed for the initial management of her te mporomandibular joint syndrome. She tells me that it is possible that at some point in the future she may have corrective mandibular surgery. Medical Problem List: Patient Active Problem List [...] syndrome S/P right ECU tenosynovectomy on 03/20/19 Iron deficiency Multiple thyroid nodules Reactive depression ALVAREZ (obstructive sleep apnea) Anxiety with somatization Sprain of deltoid ligament of right ankle, subsequent encounter Hypertrophy of nasal turbinates Meds: Current Outpatient Medications on File Prior to Visit Medication Sig Dispense Refill albuterol 2.5 mg/3 mL nebulizer solution Inhale 1-2 treatments in nebulizer every 20 mi nutes for 3 doses, then 1-4 treatments every 1-4 hours as needed 60 vial 0 azelastine 0.1% nasal spray instill 1 to 2 spray into each nostril twice a day if neede d 1 busPIRone (BUSPAR) 10 MG tablet Take 10 mg 5 times a day 150 tablet 0 Cetirizine HCl (ZYRTEC PO) Take by mouth. Once a week cholecalciferol (VITAMIN D-3) 1.25 mg (50,000 units) tablet Take one tab WEEKLY for 4 m onths 16 tablet 0 COMBIVENT RESPIMAT 20-100 MCG/ACT inhaler [...] liquid iron TID 150 mL 5 fexofenadine-pseudoePHEDrine (JOÉS ANTONIO-D 24) 180-240 MG per tablet Take 1 tablet by mout h. Fluocinonide 0.1 % CREA apply A SMALL AMOUNT to affected area twice a day 0 fluticasone (FLONASE ALLERGY RELIEF) 50 mcg/nasal spray 1 spray by Nasal route Daily as needed for Allergies. gabapentin (NEURONTIN) 100 mg capsule levothyroxine (SYNTHROID) 50 mcg tablet Take 50 mcg daily 30 tablet 11 MAGNESIUM CHLORIDE PO Take by mouth. meclizine (ANTIVERT) 12.5 mg tablet take 1 tablet by mouth every 6 hours if needed for dizziness 60 tablet 0 melatonin [address] 10 mg under the tongue nightly. montelukast (SINGULAIR) 10 mg tablet take 1 tablet by mouth every evening (Patient maci doyle differently: Once a week.) 30 tablet 11 ondansetron (ZOFRAN ODT) 8 mg disintegrating tablet Take 1 tablet by mouth every 8 hour s as needed for Nausea. 12 tablet 0 prazosin (MINIPRESS) 1 mg capsule Take BID 60 capsule 11 predniSONE (DELTASONE) 20 mg tablet Take 20 mg by mouth 2 times daily. 20mg BID x 5 day s. QVAR REDIHALER 80 MCG/ACT inhaler Take 2 puffs by mouth 2 times daily. tiotropium (SPIRIVA) 18 mcg inhalation capsule Inhale 18 mcg into the lungs Daily. tiZANidine (ZANAFLEX) 4 mg tablet Take 1 tablet by mouth every 8 hours as needed. 30 ta blet 2 traMADol (ULTRAM) 50 mg tablet Take 50 mg by mouth every 6 hours as needed. UNABLE TO FIND Med Name: nell Valerian Root 250 MG CAPS Take by mouth. Zinc 10 MG LOZG No current facility-administered medications on file prior to visit. Allergies: Allergies Allergen Reactions Latex Rash Lexapro [Escitalopram] Palpitations Ciprofloxacin Nausea Only Deblitane [Norethindrone] Hydrocodone Hives Milk Unknown Nickel Dermatitis, Itching and Swelling Uncoded Nonscreenable Allergen Other (See Comments) Other reaction(s): Proclivity to C-diff with certain antibiotics Adhesive & Tape Rash Current Physical Exam: Vitals: 11/28/19 0925 BP: 143/90 Pulse: 77 Resp: 16 PainSc: 4 PainLoc: Face Examination today reveals: The right external ear and external auditory canal show no lesions. The right tympanic mem brane is normal in appearance. There is no fluid or inflammation in the right middle ear. The tympanic membrane moves well with pneumatic otoscopy. The left external ear and external auditory canal show no lesions. The tympanic membrane o n the left is normal in appearance. There is no fluid or inflammation in the middle ear on the left. The tympanic membrane moves well with pneumatic otoscopy. Examination of the eyes reveals the pupils were equal round and reactive to light. Extraoc ular movements were intact. There was no enophthalmos for proptosis. On my examination of her nose prior to the application of vasoconstriction she does have mo derately boggy inferior turbinates. Her right nasal passage is relatively patent. She nestor thes reasonably well through the right side. On the left side she has a significant left se ptal deviation as before which does contact the left inferior turbinate. Following vasocons triction she breathes very comfortably through the right and reasonably well through the lef t. She has widely patent external nasal valves. She does not have internal nasal valve sta tic or dynamic compromise. Her intranasal examination demonstrates a significant left septa l deviation which is in contact with the left inferior turbinate and insinuates into the lef t middle meatus. She does not have any mucopus, polyps or polypoid change. Her nasopharynx appears normal. She has previously had an adenoidectomy. Lamination of her oral cavity and oropharynx reveals that she has orthodontic appliances on . Floor mouth and tongue are soft. She does have significant retrognathia. She has a sign ificant maxillary overjet. Examination of her neck reveals no palpable periparotid or cervical adenopathy. I do not c learly palpate any nodules in her thyroid. Musculoskeletal examination she has a significant temporomandibular joint click and disarti culation on the left with jaw opening. ASSESSMENT: Allergic rhinitis, currently receiving allergy immunotherapy with some subjecti ve improvement in symptoms. Significant left septal deviation and moderate turbinate hypert rophy. PLAN: Today I spoke with her at length regarding management options for her nasal obstructi on. We talked about having her continue her allergy immunotherapy with the thought that thi s may continue to improve her nasal breathing. We talked about the fact that her septal dev iation is a structural abnormality and that the allergy immunotherapy will in all likelihood not impact that at all and that she may have significant improvement in nasal breathing wit h septoplasty and inferior turbinoplasty. She would like to give the current allergy immuno therapy regimen a little bit more time before making a decision about nasal surgery. Based on her decision to hold off on any surgical intervention at this time, I am going to see her back in September of 2020 after she has her follow-up ultrasound and we will discuss her nasal symptoms again.. CLINIC PROCEDURE PERFORMED: DIAGNOSTIC NASAL ENDOSCOPY Indications: Referral for deviated septum I spoke with the patient about the benefits and downsides of diagnostic nasal endoscopy. I answered all of the patients questions and the patient would like to proceed. Anesthesia (3% lidocaine) and vasoconstriction (0.25% phenylephrine) were sprayed in the na pieter passages. The right and left nasal passages and nasopharynx were examined with the 0 rigid scope. Findings from the examination are detailed in the physical examination above. Patient tolerated the procedure well. This note was transcribed using voice recognition software; there may be speech recognition errors which escaped detection during review. Anthony Alvarado MD 11/28/2019 documented in this enco unter Plan of Treatment +--------+ + + + + | Date | Type | Specialty | Care Team | Description | +--------+ + + + + | 02/18/ | Appointment | Rehabilitation | Erika Ernst, | | | 2019 | | | DO [address] [place] | | | | | | [place] [address] | | | | | | [phone] | | | | | | | | | | | | Julia Fisher, | | | | | | PT | | +--------+ + + + + | 02/18/ | Appointment | Rehabilitation | Erika Ernst, | | | 2019 | | | DO [address] [place] | | | | | | [place] [address] | | | | | | [phone] | | | | | | | | | | | | Genesis Ayon, OT | | +--------+ + + + + | 02/25/ | Office | Primary Care | Erika Ernst, | | | 2019 | Visit | | DO [address] [place] | | | | | | [place] [address] | | | | | | [phone] | | | | | | | [...] | | | | | [place] [address] | | | | | | [phone] | | | | | | | | +--------+ + + + + | 02/27/ | Appointment | Radiology | Dhara, | | | 2019 | | | [address] | | | | | | [address] [facility], | | | | | | [place] [address] | | | | | | [phone] | | | | | | | | +--------+ + + + + | 03/04/ | Appointment | Rehabilitation | Genesis Ayon OT | | | 2019 | | | | | +--------+ + + + + | 03/09/ | Office | Orthopedic Surgery | Jeffrey Gandhi, | | | 2019 | Visit | | [address] | | | | | | [place] [address] | | | | | | [phone] | | | | | | | [...] [place] | | | | | | [address] | | | | | | [phone] | | | | | | | [...] | | | | | [place] [address] | | | | | | [phone] | | | | | | | | | | | | Azul Yeboah, | | | | | | MD [address] | | | | | | [place] | | | | | | [place] [address] | | | | | | [phone] | | | | | | | | +--------+ + + + + | 04/08/ | Appointment | Nutrition | Janel Webster | | | 2019 | | | [place], [place] | | +--------+ + + + + | 05/21/ | Office | Neurology | Dhara, | | | 2019 | Visit | | Cody, ASSEMBLYMAN [employer] WOMAN [address] | | | | | | [address] [facility] [place], | | | | | | [place] [address] | | | | | | [phone] | | | | | | | | +--------+ + + + + documented as of this encounter Visit Diagnoses + + | Diagnosis | + + | Deviated nasal septum - Primary | + + | Non-seasonal allergic rhinitis due to pollen | + + | Multiple thyroid nodules Nontoxic multinodular goiter | + + | Hypertrophy of nasal turbinates | + + documented in this encounter"
--- OUTSIDE RECORDS SUMMARY | ~2020-02-18 | XMS | Encounter Summary ---
Demographics + + + | Address | [address] | | | [place] [address] | + + + | Home Phone [...] Team Providers + +------+ + | Care Consulting Analyst Name | Role | Phone | [...] [place] | | | | | [address] | [address] | | | | | [phone] | [phone] | | | | | | | [...] | | | | | [place] [address] | | | | | | [phone] | | | | | | | | | | | | Julia Fisher, | | | | | | PT | | +--------+ + + + + | 02/18/ | Appointment | Rehabilitation | Erika Ernst, | | | 2019 | | | DO [address] | | | | | | [place] [address] | | | | | | [phone] | | | | | | | | | | | | Genesis Ayon, OT | | +--------+ + + + + | 02/25/ | Office | Primary Care | Erika Ernst, | | | 2019 | Visit | | DO [address] | | | | | | [place] [address] | | | | | | [phone] | | | | | | | [...] | | | | | [place] [address] | | | | | | [phone] | | | | | | | | +--------+ + + + + | 02/27/ | Appointment | Radiology | Dhara, | | | 2019 | | | [address] | | | | | | 4TH [facility], | | | | | | [place] [address] | | | | | | [phone] | | | | | | | | +--------+ + + + + | 03/04/ | Appointment | Rehabilitation | Genesis Ayon OT | | | 2019 | | | | | +--------+ + + + + | 03/09/ | Office | Orthopedic Surgery | Jeffrey Gandhi, | | | 2019 | Visit | | [address] | | | | | | [place] [address] | | | | | | [phone] | | | | | | | [...] [place] | | | | | | [address] | | | | | | [phone] | | | | | | | [...] | | | | | [place] [address] | | | | | | [phone] | | | | | | | | | | | | Azul Yeboah, | | | | | | MD [address] | | | | | | [place] | | | | | | [place] [address] | | | | | | [phone] | | | | | | | [...] | | | | | | [place] [address] | | | | | | [phone] | | | | | | | | +--------+ + + + + documented as of this encounter Visit Diagnoses Not on filedocumented in this encounter"
--- OUTSIDE RECORDS SUMMARY | ~2020-02-18 | XMS | Encounter Summary ---
Demographics + + + | Address | [address] | | | [place] [address] | + + + | Home Phone [...] Providers + +------+ + | Care Health Actuary Name | Role | Phone | + [...] [address] [place] | [place] [address] | | | | | [place], [place] | [phone] | | | | | [address] | | | | | | [phone] | | | +--------+ + + + [...] | | | | | [place] [address] | | | | | | [phone] | | | | | | | | | | | | Julia Fisher, | | | | | | PT | | +--------+ + + + + | 02/18/ | Appointment | Rehabilitation | Erika Ernst, | | | 2019 | | | DO [address] | | | | | | [place] [address] | | | | | | [phone] | | | | | | | | | | | | Genesis Ayon, SUSAN | | +--------+ + + + + | 02/25/ | Office | Primary Care | Erika Ernst, | | | 2019 | Visit | | DO [address] | | | | | | [place] [address] | | | | | | [phone] | | | | | | | [...] | | | | | [place] [address] | | | | | | [phone] | | | | | | | | +--------+ + + + + | 02/27/ | Appointment | Radiology | Dhara, | | 2019 | | | [address] | | | | | | [address] [place], | | | | | | [place] [address] | | | | | | [phone] | | | | | | | [...] | | | | | [place] [address] | | | | | | [phone] | | | | | | | [...] [place] | | | | | | [address] | | | | | | [phone] | | | | | | | [...] | | | | | [place] [address] | | | | | | [phone] | | | | | | | | | | | | Azul Yeboah, | | | | | | MD [address] | | | | | | [place] | | | | | | [place] [address] | | | | | | [phone] | | | | | | | [...] | | | | | | [place] [address] | | | | | | [phone] | | | | | | | | +--------+ + + + + documented as of this encounter Visit Diagnoses Not on filedocumented in this encounter"
--- OUTSIDE RECORDS SUMMARY | ~2020-02-18 | XMS | Encounter Summary ---
Demographics + + + | Address | [address] | | | [place] [address] | + + + | Home Phone [...] Providers + +------+ + | Care Manager Therapy Name | Role | Phone | + [...] Provider Unknown | | | | | [place], [place] | [phone] | | | | | [phone] | (Fax) | | | | | [phone] | | | +--------+ + + + [...] | 03/19/20 | | | (VITAMIN D3) 49146 | mouth Once a week | tablet [...] | | | DO [address] [place] | | | | | | [place] [address] | | | | | | [phone] | | | | | | | | | | | | Julia Fisher, | | | | | | PT | | +--------+ + + + + | 02/18/ | Appointment | Rehabilitation | Erika Ernst, | | | 2019 | | | DO [address] | | | | | | [place] [address] | | | | | | [phone] | | | | | | | | | | | | Genesis Ayon OT | | +--------+ + + + + | 02/25/ | Office | Primary Care | Erika Ernst, | | | 2019 | Visit | | DO [address] | | | | | | [place] [address] | | | | | | [phone] | | | | | | | [...] | | | | | [place] [address] | | | | | | [phone] | | | | | | | | +--------+ + + + + | 02/27/ | Appointment | Radiology | Dhara, | | | 2019 | | | [address] | | | | | | 4TH [facility], | | | | | | [place] [address] | | | | | | [phone] | | | | | | | [...] [place] | | | | | | [place] [address] | | | | | | [phone] | | | | | | | [...] [place] | | | | | | [address] | | | | | | [phone] | | | | | | | [...] | | | | | [place] [address] | | | | | | [phone] | | | | | | | | | | | | Azul Yeboah, | | | | | | MD [address] | | | | | | [place] | | | | | | [place] [address] | | | | | | [phone] | | | | | | | [...] | | | | | [address] [place], | | | | | | [place] [address] | | | | | | [phone] | | | | | | | [...]
--- OUTSIDE RECORDS SUMMARY | ~2020-02-18 | XMS | Encounter Summary ---
Demographics + + + | Address | [address] | | | [place] [address] | + + + | Home Phone [...] Team Providers + +------+ + | Care Ems Helicopter Pilot Name | Role | Phone | + [...] | [place], [place] | [place] [address] | | | | | [address] | [phone] | | | | | [phone] | | | +--------+---------+ + + + [...] | | | | | [place] [address] | | | | | | [phone] | | | | | | | | | | | | Julia Fisher, | | | | | | PT | | +--------+ + + + + | 02/18/ | Appointment | Rehabilitation | Erika Ernst, | | | 2019 | | | DO [address] | | | | | | [place] [address] | | | | | | [phone] | | | | | | | | | | | | Genesis Ayon OT | | +--------+ + + + + | 02/25/ | Office | Primary Care | Erika Ernst, | | | 2019 | Visit | | DO [address] | | | | | | [place] [address] | | | | | | [phone] | | | | | | | [...] | | | | | [place] [address] | | | | | | [phone] | | | | | | | | +--------+ + + + + | 02/27/ | Appointment | Radiology | Dhara, | | | 2019 | | | [address] | | | | | | [address] [place], | | | | | | [place] [address] | | | | | | [phone] | | | | | | | [...] | | | | | [place] [address] | | | | | | [phone] | | | | | | | [...] [place] | | | | | | [address] | | | | | | [phone] | | | | | | | [...] | | | | | [place] [address] | | | | | | [phone] | | | | | | | | | | | | Azul Yeboah, | | | | | | [address] | | | | | | [place] | | | | | | [place] [address] | | | | | | [phone] | | | | | | | [...] | | | | | | [place] [address] | | | | | | [phone] | | | | | | | | +--------+ + + + + documented as of this encounter Visit Diagnoses Not on filedocumented in this encounter"
--- OUTSIDE RECORDS SUMMARY | ~2020-02-18 | XMS | Encounter Summary ---
Demographics + + + | Address | [address] | | | [place] [address] | + + + | Home Phone [...] Team Providers + +------+ + | Care Farmhand Name | Role | Phone | + [...] | +--------+ + + + + | 06/21/ | Telephone | [place] [facility] | Erika Ernst, | Lab Results | | 2019 | | [facility] | DO [address] | | | | | [facility] [address] | [place] [address] | | | | | [address] [place], | [phone] | | | | | [place] [address] | | | | | | [phone] | | | +--------+ + + + [...] | | | | | [place] [address] | | | | | | [phone] | | | | | | | | | | | | Forma, Julia M, | | | | | | PT | | +--------+ + + + + | 02/18/ | Appointment | Rehabilitation | Erika Ernst, | | | 2019 | | | DO [address] | | | | | | [place] [address] | | | | | | [phone] | | | | | | | | | | | | Genesis Ayon OT | | +--------+ + + + + | 02/25/ | Office | Primary Care | Erika Ernst, | | | 2019 | Visit | | DO [address] | | | | | | [place] [address] | | | | | | [phone] | | | | | | | [...] | | | | | [place] [address] | | | | | | [phone] | | | | | | | | +--------+ + + + + | 02/27/ | Appointment | Radiology | Dhara, | | | 2019 | | | [address] | | | | | | 4TH [facility], | | | | | | [place] [address] | | | | | | [phone] | | | | | | | [...] ST | | | | | | [place] [address] | | | | | | [phone] | | | | | | | [...] [place] | | | | | | [address] | | | | | | [phone] | | | | | | | [...] | | | | | [place] [address] | | | | | | [phone] | | | | | | | | | | | | Azul Yeboah, | | | | | | MD [address] | | | | | | [place] | | | | | | [place] [address] | | | | | | [phone] | | | | | | | [...] | | | | | [address] [place], | | | | | | [place] [address] | | | | | | [phone] | | | | | | | | +--------+ + + + + documented as of this encounter Visit Diagnoses Not on filedocumented in this encounter"
--- OUTSIDE RECORDS SUMMARY | ~2020-02-18 | XMS | Encounter Summary ---
Demographics + + + | Address | [address] | | | [place] [address] | + + + | Home Phone [...] Team Providers + +------+ + | Care Disabilities Services Officer Name | Role | Phone | [...] + + + + | 10/24/ | Telephone | [place] [facility] | Erika Ernst, | Lab Results | | 2019 | | [facility] | DO [address] | | | | | [facility] [address] | [place] [address] | | | | | [address] [place], | [phone] | | | | | [place] [address] | | | | | | [phone] | | | +--------+ + + + [...] | | | | | [place] [address] | | | | | | [phone] | | | | | | | | | | | | Forma, Julia M, | | | | | | PT | | +--------+ + + + + | 02/18/ | Appointment | Rehabilitation | Erika Ernst, | | | 2019 | | | DO [address] | | | | | | [place] [address] | | | | | | [phone] | | | | | | | | | | | | Genesis Ayon OT | | +--------+ + + + + | 02/25/ | Office | Primary Care | Erika Ernst, | | | 2019 | Visit | | DO [address] | | | | | | [place] [address] | | | | | | [phone] | | | | | | | [...] | | | | | [place] [address] | | | | | | [phone] | | | | | | | | +--------+ + + + + | 02/27/ | Appointment | Radiology | Dhara, | | | 2019 | | | [address] | | | | | | 4TH [facility], | | | | | | [place] [address] | | | | | | [phone] | | | | | | | [...] ST | | | | | | [place] [address] | | | | | | [phone] | | | | | | | [...] [place] | | | | | | [address] | | | | | | [phone] | | | | | | | [...] [address] | | | | | | [phone] | | | | | | | | | | | | Azul Yeboah, | | | | | | MD [address] | | | | | | [place] | | | | | | [place] [address] | | | | | | [phone] | | | | | | | [...] | | | | | | [place] [address] | | | | | | [phone] | | | | | | | | +--------+ + + + + documented as of this encounter Visit Diagnoses Not on filedocumented in this encounter"
--- OUTSIDE RECORDS SUMMARY | ~2020-02-18 | XMS | Encounter Summary ---
Demographics + + + | Address | [address] | | | [place] [address] | + + + | Home Phone [...] Providers + +------+ + | Care Dry Yard Worker Name | Role | Phone | [...] | | | | [place], [place] | [address] | | | | | [address] | [phone] | | | | | [phone] | | | +--------+ + + + [...] | | | | | [place] [address] | | | | | | [phone] | | | | | | | | | | | | Julia Fisher, | | | | | | PT | | +--------+ + + + + | 02/18/ | Appointment | Rehabilitation | Erika Ernst, | | | 2019 | | | DO [address] | | | | | | [place] [address] | | | | | | [phone] | | | | | | | | | | | | Genesis Ayon OT | | +--------+ + + + + | 02/25/ | Office | Primary Care | Erika Ernst, | | | 2019 | Visit | | DO [address] [place] | | | | | | [place] [address] | | | | | | [phone] | | | | | | | [...] | | | | | [place] [address] | | | | | | [phone] | | | | | | | | +--------+ + + + + | 02/27/ | Appointment | Radiology | Dhara, | | | 2019 | | | [address] | | | | | | 4TH [facility], | | | | | | [place] [address] | | | | | | [phone] | | | | | | | [...] | | | | | [place] [address] | | | | | | [phone] | | | | | | | [...] [place] | | | | | | [address] | | | | | | [phone] | | | | | | | [...] | | | | | [place] [address] | | | | | | [phone] | | | | | | | | | | | | Azul Yeboah, | | | | | | MD [address] | | | | | | [place] | | | | | | [place] [address] | | | | | | [phone] | | | | | | | [...] | | | | | | [place] [address] | | | | | | [phone] | | | | | | | [...]
--- OUTSIDE RECORDS SUMMARY | ~2020-02-18 | XMS | Encounter Summary ---
Demographics + + + | Address | [address] | | | [place] [address] | + + + | Home Phone [...] Team Providers + +------+ + | Care Velvet Weaver Name | Role | Phone | [...] CLIN[facility] [address] | [facility] [place] [address] | | | | | [address] [place], | [phone] | | | | | [place] [address] | | | | | | [phone] | | | +--------+ + + + [...] | | | | | [place] [address] | | | | | | [phone] | | | | | | | | | | | | Julia Fisher, | | | | | | PT | | +--------+ + + + + | 02/18/ | Appointment | Rehabilitation | Erika Ernst, | | | 2019 | | | DO [address] [place] | | | | | | [place] [address] | | | | | | [phone] | | | | | | | | | | | | Genesis Ayon OT | | +--------+ + + + + | 02/25/ | Office | Primary Care | Erika Ernst, | | | 2019 | Visit | | [address] [place] [address] | | | | | | [place] [address] | | | | | | [phone] | | | | | | | [...] | | | | | [place] [address] | | | | | | [phone] | | | | | | | | +--------+ + + + + | 02/27/ | Appointment | Radiology | Dhara, | | | 2019 | | | [address] | | | | | | [address] [place], | | | | | | [place] [address] | | | | | | [phone] | | | | | | | | +--------+ + + + + | 03/04/ | Appointment | Rehabilitation | Genesis Ayon OT | | 2019 | | | | | +--------+ + + + + | 03/09/ | Office | Orthopedic Surgery | Jeffrey Gandhi, | | | 2019 | Visit | | [facility] [address] [facility] [facility] | | | | | | [place] [address] | | | | | | [phone] | | | | | | | [...] [place] | | | | | | [address] | | | | | | [phone] | | | | | | | [...] | | | | | [place] [address] | | | | | | [phone] | | | | | | | | | | | | Azul Yeboah, | | | | | | [address] | | | | | | [place] | | | | | | [place] [address] | | | | | | [phone] | | | | | | | [...] | | | | | | [place] [address] | | | | | | [phone] | | | | | | | | +--------+ + + + + documented as of this encounter Visit Diagnoses Not on filedocumented in this encounter"
--- OUTSIDE RECORDS SUMMARY | ~2020-02-18 | XMS | Encounter Summary ---
Demographics + + + | Address | [address] | | | [place] [address] | + + + | Home Phone [...] Providers + +------+ + | Care Operations Specialists Name | Role | Phone | + [...] | | | [facility] [address] | [place] [address] | | | | | [address] [facility], | [phone] | | | | | [place] [address] | | | | | | [phone] | | | +--------+ + + + [...] | | | | | [place] [address] | | | | | | [phone] | | | | | | | | | | | | Julia Fisher, | | | | | | PT | | +--------+ + + + + | 02/18/ | Appointment | Rehabilitation | Erika Ernst, | | | 2019 | | | DO [address] [place] | | | | | | [place] [address] | | | | | | [phone] | | | | | | | | | | | | Genesis Ayon OT | | +--------+ + + + + | 02/25/ | Office | Primary Care | Erika Ernst, | | | 2019 | Visit | | DO [address] | | | | | | [place] [address] | | | | | | [phone] | | | | | | | [...] | | | | | [place] [address] | | | | | | [phone] | | | | | | | | +--------+ + + + + | 02/27/ | Appointment | Radiology | Dhara, | | | 2019 | | | [address] | | | | | | 4TH [facility], | | | | | | [place] [address] | | | | | | [phone] | | | | | | | | +--------+ + + + + | 03/04/ | Appointment | Rehabilitation | Genesis Ayon OT | | | 2019 | | | | | +--------+ + + + + | 03/09/ | Office | Orthopedic Surgery | Jeffrey Gandhi, | | 2019 | Visit | | [address] | | | | | | [place] [address] | | | | | | [phone] | | | | | | | [...] [place] | | | | | | [address] | | | | | | [phone] | | | | | | | [...] | | | | | [place] [address] | | | | | | [phone] | | | | | | | | | | | | Azul Yeboah, | | | | | | MD [address] | | | | | | [place] | | | | | | [place] [address] | | | | | | [phone] | | | | | | | [...] | | | | | | [place] [address] | | | | | | [phone] | | | | | | | | +--------+ + + + + documented as of this encounter Visit Diagnoses Not on filedocumented in this encounter"
--- OUTSIDE RECORDS SUMMARY | ~2020-02-18 | XMS | Encounter Summary ---
Demographics + + + | Address | [address] | | | [place] [address] | + + + | Home Phone [...] Team Providers + +------+ + | Care Engineering Inspector Name | Role | Phone | [...] | [facility] [address] | [place] [address] | | | | | [address] [place], | [phone] | | | | | [place] [address] | | | | | | [phone] | | | +--------+ + + + [...] | 2019 | | | DO [address] [place] | | | | | | [place] [address] | | | | | | [phone] | | | | | | | | | | | | Julia Fisher, | | | | | | PT | | +--------+ + + + + | 02/18/ | Appointment | Rehabilitation | Erika Ernst, | | | 2019 | | | DO [address] [place] | | | | | | [place] [address] | | | | | | [phone] | | | | | | | | | | | | Genesis Ayon OT | | +--------+ + + + + | 02/25/ | Office | Primary Care | Erika Ernst, | | | 2019 | Visit | | DO [address] [place] | | | | | | [place] [address] | | | | | | [phone] | | | | | | | [...] | | | | | [place] [address] | | | | | | [phone] | | | | | | | | +--------+ + + + + | 02/27/ | Appointment | Radiology | Dhara, | | | 2019 | | | [address] | | | | | | [address] [place], | | | | | | [place] [address] | | | | | | [phone] | | | | | | | [...] | | | | | [place] [address] | | | | | | [phone] | | | | | | | [...] [place] | | | | | | [address] | | | | | | [phone] | | | | | | | [...] | | | | | [place] [address] | | | | | | [phone] | | | | | | | | | | | | Azul Yeboah, | | | | | | MD [address] | | | | | | [place] | | | | | | [place] [address] | | | | | | [phone] | | | | | | | [...] | | | | | | [place] [address] | | | | | | [phone] | | | | | | | | +--------+ + + + + documented as of this encounter Visit Diagnoses Not on filedocumented in this encounter"
--- OUTSIDE RECORDS SUMMARY | ~2020-02-18 | XMS | Encounter Summary ---
Demographics + + + | Address | [address] | | | [place] [address] | + + + | Home Phone [...] Providers + +------+ + | Care Supervisor Instrument Mechanics Name | Role | Phone | + [...] | [facility] [address] | [place] [address] | | | | | [address] [place], | [phone] | | | | | [place] [address] | | | | | | [phone] | | | +--------+ + + + [...] | | | DO [address] [place] | | | | | | [place] [address] | | | | | | [phone] | | | | | | | | | | | | Julia Fisher, | | | | | | PT | | +--------+ + + + + | 02/18/ | Appointment | Rehabilitation | Erika Ernst, | | | 2019 | | | DO [address] [place] | | | | | | [place] [address] | | | | | | [phone] | | | | | | | | | | | | Genesis Ayon OT | | +--------+ + + + + | 02/25/ | Office | Primary Care | Erika Ernst, | | | 2019 | Visit | | DO [address] [place] | | | | | | [place] [address] | | | | | | [phone] | | | | | | | [...] | | | | | [place] [address] | | | | | | [phone] | | | | | | | | +--------+ + + + + | 02/27/ | Appointment | Radiology | Dhara, | | | 2019 | | | [address] | | | | | | [address] [place], | | | | | | [place] [address] | | | | | | [phone] | | | | | | | [...] | | | | | [place] [address] | | | | | | [phone] | | | | | | | [...] [place] | | | | | | [address] | | | | | | [phone] | | | | | | | [...] | | | | | [place] [address] | | | | | | [phone] | | | | | | | | | | | | Azul Yeboah, | | | | | | MD [address] | | | | | | [place] | | | | | | [place] [address] | | | | | | [phone] | | | | | | | [...] | | | | | | [place] [address] | | | | | | [phone] | | | | | | | | +--------+ + + + + documented as of this encounter Visit Diagnoses Not on filedocumented in this encounter"
--- OUTSIDE RECORDS SUMMARY | ~2020-02-18 | XMS | Encounter Summary ---
Demographics + + + | Address | [address] | | | [place] [address] | + + + | Home Phone [...] | [facility] | | | [...] Providers + +------+ + | Care Irrigationist Name | Role | Phone | + +------+ + PCP | Unavailable | + +------+ + Encounter Details +--------+ + + + + | Date | Type | Department | Care Team | Description | +--------+ + + + + | 10/27/ | Hospital | [facility] | Camille Bush | | | 2016 | Encounter | [facility] | [address] | | | | | [facility] | [facility], | | | | | [address] [facility], | [place] [address] | | | | | [place] [address] | [phone] | | | | | [phone] | | | +--------+ + + + [...] | | | | | [place] [address] | | | | | | [phone] | | | | | | | | | | | | Julia Fisher, | | | | | | PT | | +--------+ + + + + | 02/18/ | Appointment | Rehabilitation | Erika Ernst, | | | 2019 | | | DO [address] | | | | | | [place] [address] | | | | | | [phone] | | | | | | | | | | | | Genesis Ayon, OT | | +--------+ + + + + | 02/25/ | Office | Primary Care | Erika Ernst, | | | 2019 | Visit | | DO [address] | | | | | | [place] [address] | | | | | | [phone] | | | | | | | [...] | | | | | [place] [address] | | | | | | [phone] | | | | | | | | +--------+ + + + + | 02/27/ | Appointment | Radiology | Dhara, | | | 2019 | | | DWAINE Ross [address] [place], | | | | | | [place] [address] | | | | | | [phone] | | | | | | | | +--------+ + + + + | 03/04/ | Appointment | Rehabilitation | Genesis Ayon OT | | | 2019 | | | | | +--------+ + + + + | 03/09/ | Office | Orthopedic Surgery | Jeffrey Gandhi, | | | 2019 | Visit | | [place] [address] [facility] | | | | | | [place] [address] | | | | | | [phone] | | | | | | | [...] [place] | | | | | | [address] | | | | | | [phone] | | | | | | | [...] | | | | | [place] [address] | | | | | | [phone] | | | | | | | | | | | | Azul Yeboah, | | | | | | MD [address] | | | | | | [address] [place] | | | | | | [place] [address] | | | | | | [phone] | | | | | | | [...] | | | | | | [place] [address] | | | | | | [phone] | | | | | | | | +--------+ + + + + documented as of this encounter Visit Diagnoses Not on filedocumented in this encounter"
--- OUTSIDE RECORDS SUMMARY | ~2020-02-18 | XMS | Encounter Summary ---
Demographics + + + | Address | [address] | | | [place] [address] | + + + | Home Phone [...] Providers + +------+ + | Care Supervisor Rubber Covering Name | Role | Phone | + +------+ + PCP | Unavailable | + +------+ + Encounter Details +--------+ + + + + | Date | Type | Department | Care Team | Description | +--------+ + + + + | 12/30/ | [facility] | Cody Go | | | 2017 | Encounter | [facility] | [address] [place] | | | | | W[facility] [address] | [facility] [place], [place] | | | | | [facility], | [address] | | | | | [place] [address] | [phone] | | | | | [phone] | | | +--------+ + + + [...] | | | | | [place] [address] | | | | | | [phone] | | | | | | | | | | | | Julia Fisher, | | | | | | PT | | +--------+ + + + + | 02/18/ | Appointment | Rehabilitation | Erika Ernst, | | | 2019 | | | DO [address] | | | | | | [place] [address] | | | | | | [phone] | | | | | | | | | | | | Genesis Ayon OT | | +--------+ + + + + | 02/25/ | Office | Primary Care | Erika Ernst, | | | 2019 | Visit | | DO [address] [place] [address] | | | | | | [place] [address] | | | | | | [phone] | | | | | | | [...] | | | | | [place] [address] | | | | | | [phone] | | | | | | | | +--------+ + + + + | 02/27/ | Appointment | Radiology | Dhara, | | | 2019 | | | DWAINE Ross [address] | | | | | [address] [place], | | | | | | [place] [address] | | | | | | [phone] | | | | | | | [...] | | | | | [place] [address] | | | | | | [phone] | | | | | | | [...] [place] | | | | | | [address] | | | | | | [phone] | | | | | | | [...] | | | | | [place] [address] | | | | | | [phone] | | | | | | | | | | | | Azul Yeboah, | | | | | | MD [address] | | | | | | [place] | | | | | | [place] [address] | | | | | | [phone] | | | | | | | [...] | | | | | | [place] [address] | | | | | | [phone] | | | | | | | | +--------+ + + + + documented as of this encounter Visit Diagnoses Not on filedocumented in this encounter"
--- OUTSIDE RECORDS SUMMARY | ~2020-02-18 | XMS | Encounter Summary ---
Demographics + + + | Address | [address] | | | [place] [address] | + + + | Home Phone [...] Team Providers + +------+ + | Care Pastry Decorator Name | Role | Phone | + [...] | | | of left | [place] [address] | [place] [address] | | | | | ankle, | Phone: | Phone: | | | | | initial | [phone] | [phone] | | | | | encounter | Fax: | Fax: | | | | | Procedures | [phone] | [phone] | | | | | PT EVAL AND | | | | | | | TREAT | | | +--------+ + + + + + Encounter Details +--------+ + + + + | Date | Type | Department | Care Team | Description | +--------+ + + + + | 07/12/ | Hospital | [place] [facility] | Erika Ernst, | Sprain of | | 2018 | Encounter | HOSPITAL THERAPY PT | DO [address] | calcaneofibular | | | | [address] [place] | [place] [address] | ligament of left | | | | [place], [place] | [phone] | ankle, initial | | | | [address] | | encounter | | | | [phone] | Nick Barrios I, PT | | [...] Progress Notes Nick Barrios I, PT - 07/12/2018 6:08 PM PDTFormatting of this note might be different hannah tan the original. [facility] THERAP[facility] PT [address] [place] [address] Physical Therapy Daily Treatment Note Date: 07/12/2018 Patient Information Patient Name: Andrea Suh Date of : 1990 Age: 28 y.o. Encounter Diagnoses Code Name Primary? S93.412A Sprain of calcaneofibular ligament of left ankle, initial encounter Date of Onset: 06/11/2018 Referring Provider: Erika Ernst DO Objective Pain Assessment: Pain Rating Pre Assessment: 4 Pain Rating Post Assessment: 4 Location: L lateral ankle Today's Treatment Patient Name: Andrea Suh/: 1990/ Start Time: 1553 Stop time: 1652 Duration: 59 minutes Timed Treatment Codes: 54 minutes # of PT Visits to Date: 3 Visit Summary: S: Patient states that her L ankle feels a little sore today and felt sore a fter last session. Someone accidentally stepped on her L ankle since last visit. She has bee n compliant with HEP. A: Patient tolerated ROM and gentle L ankle strengthening exercises we ll today, but did note some discomfort/soreness. More aggressive progression of strengthenin g not yet indicated due to patient's symptoms. Physical therapy remains necessary in order t o manage pain and improve L ankle function. Next Visit Information: progress ankle ROM exercises, assess tolerance to 4 way yellow TB P RE, initiate step up exercises, stance on foam pad, maybe heel raises on leg press. Therapy Interventions HEP: NEW: 4 way ankle PRE yellow theraband 3x10 each direction 3x/wk. ONGOING: Ankle invers ion/eversion 3x10 progressing to 20 1x/day // ankle ABC's 3x/day. // Ankle pumps 3x10 progre ssing to 20 repetitions 1x/day // ankle circles 3x10 progressing to 20 repetitions each dire ction 1x/day PT INTERVENTION 1: TE - (42 minutes) NuStep L1 10 minutes // Normal stance on foam pad 2x30 seconds eyes open, 4x30 seconds eyes closed with use of grab bar as needed for support // P RE yellow theraband L ankle dorsiflexion/plantarflexion/eversion/inversion 2x10 each directi on // Ankle ABC's x2 // Seated BAPS board exercises: clocks 3x15 each direction L3; Plantarf lexion/dorsiflexion 3x15 L3; Eversion/inversion 3x15 L3 // Ankle pumps 2x20 // ankle circles 2x20 each direction // additional time required for [...] today Electronically signed by: Nick Barrios, PT, 07/12/2018 18:08 Patient Name: Andrea Suh/: 1990/ documented in [...] | | | | | [place] [address] | | | | | | [phone] | | | | | | | [...] [address] | | | | | | [phone] | | | | | | | | | | | | Genesis Ayon, OT | | +--------+ + + + + | 02/25/ | Office | Primary Care | Erika Ernst, | | | 2019 | Visit | | DO [address] | | | | | | [place] [address] | | | | | | [phone] | | | | | | | [...] | | | | | [place] [address] | | | | | | [phone] | | | | | | | | +--------+ + + + + | 02/27/ | Appointment | Radiology | Dhara, | | | 2019 | | | [address]WA[address] | | | | | | [address]TH [facility], | | | | | | [place] [address] | | | | | | [phone] | | | | | | | [...] [place] | | | | | | [place] [address] | | | | | | [phone] | | | | | | | [...] [place] | | | | | | [address] | | | | | | [phone] | | | | | | | [...] | | | | | [place] [address] | | | | | | [phone] | | | | | | | | | | | | Azul Yeboah, | | | | | | MD [address] | | | | | | [place] | | | | | | [place] [address] | | | | | | [phone] | | | | | | | [...] | | | | | | [place] [address] | | | | | | [phone] | | | | | | | | +--------+ + + + + documented as of this encounter Visit Diagnoses + + | Diagnosis | + + | Sprain of calcaneofibular ligament of left ankle, initial encounter | + + documented in this encounter"
--- OUTSIDE RECORDS SUMMARY | ~2020-02-18 | XMS | Encounter Summary ---
Demographics + + + | Address | [address] | | | [place] [address] | + + + | Home Phone [...] Providers + +------+ + | Care Senior Professional Services Consultant Name | Role | Phone | [...] | [place] | [place] [address] | | | | | [address] | [phone] | | | | | [phone] | | | +--------+ + + + [...] 2019 | | | DO [address] | | | | | | [place] [address] | | | | | | [phone] | | | | | | | | | | | | Julia Fisher, | | | | | | PT | | +--------+ + + + + | 02/18/ | Appointment | Rehabilitation | Erika Ernst, | | | 2019 | | | DO [address] | | | | | | [place] [address] | | | | | | [phone] | | | | | | | | | | | | Genesis Ayon OT | | +--------+ + + + + | 02/25/ | Office | Primary Care | Erika Ernst, | | | 2019 | Visit | | DO [address] | | | | | | [place] [address] | | | | | | [phone] | | | | | | | [...] | | | | | [place] [address] | | | | | | [phone] | | | | | | | | +--------+ + + + + | 02/27/ | Appointment | Radiology | Dhara, | | | 2019 | | | [address] | | | | | | 4TH [facility], | | | | | | [place] [address] | | | | | | [phone] | | | | | | | [...] [place] | | | | | | [place] [address] | | | | | | [phone] | | | | | | | [...] [place] | | | | | | [address] | | | | | | [phone] | | | | | | | [...] | | | | | [place] [address] | | | | | | [phone] | | | | | | | | | | | | Azul Yeboah, | | | | | | MD [address] | | | | | | [place] | | | | | | [place] [address] | | | | | | [phone] | | | | | | | [...] | | | | | | [place] [address] | | | | | | [phone] | | | | | | | | +--------+ + + + + documented as of this encounter Visit Diagnoses Not on filedocumented in this encounter"
--- OUTSIDE RECORDS SUMMARY | ~2020-02-18 | XMS | Encounter Summary ---
Demographics + + + | Address | [address] | | | [place] [address] | + + + | Home Phone [...] Team Providers + +------+ + | Care Soft Top Installer Name | Role | Phone | [...] | | | of left | [place] [address] | [place] [address] | | | | | ankle, | Phone: | Phone: | | | | | initial | [phone] | [phone] | | | | | encounter | Fax: | Fax: | | | | | Procedures | [phone] | [phone] | | | | | PT TREAT [...] [address] [place] | [place] [address] | encounter (Primary | | | | [place], [place] | [phone] | Dx); Fall on same | | | | [address] | | level from slipping, | | | | [phone] | Julia Castillo | subsequent | | [...] documented as of this encounter Progress Notes uJlia Castillo, PT - 10/09/2018 1:33 PM PSTFormatting of this note might be differen t from the original. [facility] PT [address] [place] [address] Physical Therapy Daily Treatment Note Date: 10/09/2018 [...] Castillo, PT, 10/09/2018 13:33 Patient Name: Andrea Henaoemiliasuresh/: 1990/ documented in th is encounter Plan of Treatment +--------+ + + + + | Date | Type | Specialty | Care Team | Description | +--------+ + + + + | 02/18/ | Appointment | Rehabilitation | Erika Ernst, | | | 2019 | | | DO [address] | | | | | | [place] [address] | | | | | | [phone] | | | | | | | | | | | | Julia Fisher, | | | | | | PT | | +--------+ + + + + | 02/18/ | Appointment | Rehabilitation | Erika Ernst, | | | 2019 | | | DO [address] | | | | | | [place] [address] | | | | | | [phone] | | | | | | | | | | | | Genesis Ayon OT | | +--------+ + + + + | 02/25/ | Office | Primary Care | Erika Ernst, | | | 2019 | Visit | | DO [address] | | | | | | [place] [address] | | | | | | [phone] | | | | | | | [...] | | | | | [place] [address] | | | | | | [phone] | | | | | | | | +--------+ + + + + | 02/27/ | Appointment | Radiology | Dhara, | | | 2019 | | | DWAINE Ross [address] [place], | | | | | | [place] [address] | | | | | | [phone] | | | | | | | | +--------+ + + + + | 03/04/ | Appointment | Rehabilitation | Genesis Ayon OT | | | 2019 | | | | | +--------+ + + + + | 03/09/ | Office | Orthopedic Surgery | Jeffrey Gandhi, | | | 2019 | Visit | | [address] | | | | | | [place] [address] | | | | | | [phone] | | | | | | | [...] [address] | [address] | | | [address] | | | | | | [place], [place] | | | | | | [address] | | | | | | [phone] | | | | | | | [...] | | | | | [place] [address] | | | | | | [phone] | | | | | | | | | | | | Azul Yeboah, | | | | | | [address] | | | | | | [place] | | | | | | [place] [address] | | | | | | [phone] | | | | | | | [...] | | | | | | [place] [address] | | | | | | [phone] | | | | | | | | +--------+ + + + + documented as of this encounter Visit Diagnoses + + | Diagnosis | + + | Sprain of left ankle, subsequent encounter - Primary | + + | Fall on same level from slipping, subsequent encounter | + + documented in this encounter"
--- OUTSIDE RECORDS SUMMARY | ~2020-02-18 | XMS | Encounter Summary ---
Demographics + + + | Address | [address] | | | [place] [address] | + + + | Home Phone [...] Team Providers + +------+ + | Care Put In Beat Adjuster Name | Role | Phone | + +------+ + PCP | Unavailable | + +------+ + Encounter Details +--------+ + + + + | Date | Type | Department | Care Team | Description | +--------+ + + + + | 04/26/ | [facility] | [facility] | Erika Ernst, | | | 2016 | Encounter | [facility] | DO [address] | | | | | [facility] [address] | [place] [address] | | | | | [address] [place], | [phone] | | | | | [place] [address] | | | | | | [phone] | | | +--------+ + + + [...] | | | | | [place] [address] | | | | | | [phone] | | | | | | | | | | | | Julia Fisher, | | | | | | PT | | +--------+ + + + + | 02/18/ | Appointment | Rehabilitation | Erika Ernst, | | | 2019 | | | DO [address] | | | | | | [place] [address] | | | | | | [phone] | | | | | | | | | | | | Genesis Ayon, OT | | +--------+ + + + + | 02/25/ | Office | Primary Care | Erika Ernst, | | | 2019 | Visit | | DO [address] | | | | | | [place] [address] | | | | | | [phone] | | | | | | | [...] | | | | | [place] [address] | | | | | | [phone] | | | | | | | | +--------+ + + + + | 02/27/ | Appointment | Radiology | Dhara, | | | 2019 | | | [address]WA[address] | | | | | | 4TH [facility], | | | | | | [place] [address] | | | | | | [phone] | | | | | | | | +--------+ + + + + | 03/04/ | Appointment | Rehabilitation | Genesis Ayon OT | | 2019 | | | | | +--------+ + + + + | 03/09/ | Office | Orthopedic Surgery | Jeffrey Gandhi, | | 2019 | Visit | | [address] [facility] | | | | | | [place] [address] | | | | | | [phone] | | | | | | | [...] [place] | | | | | | [address] | | | | | | [phone] | | | | | | | [...] | | | | | [place] [address] | | | | | | [phone] | | | | | | | | | | | | Azul Yeboah, | | | | | | [address] | | | | | | [place] | | | | | | [place] [address] | | | | | | [phone] | | | | | | | [...] | | | | | | [place] [address] | | | | | | [phone] | | | | | | | | +--------+ + + + + documented as of this encounter Visit Diagnoses Not on filedocumented in this encounter"
--- OUTSIDE RECORDS SUMMARY | ~2020-02-18 | XMS | Encounter Summary ---
Demographics + + + | Address | [address] | | | [place] [address] | + + + | Home Phone [...] Team Providers + +------+ + | Care Canal Equipment Maintenance Supervisor Name | Role | Phone | [...] [place] | | | | | | [address] | | | | | | [phone] | | | +--------+ + + + [...] | | | | | [place] [address] | | | | | | [phone] | | | | | | | | | | | | Julia Fisher, | | | | | | PT | | +--------+ + + + + | 02/18/ | Appointment | Rehabilitation | Erika Ernst, | | 2019 | | | DO [address] | | | | | | [place] [address] | | | | | | [phone] | | | | | | | | | | | | Genesis Ayon, SUSAN | | +--------+ + + + + | 02/25/ | Office | Primary Care | Erika Ernst, | | | 2019 | Visit | | DO [address] [place] [address] | | | | | | [place] [address] | | | | | | [phone] | | | | | | | [...] | | | | | [place] [address] | | | | | | [phone] | | | | | | | | +--------+ + + + + | 02/27/ | Appointment | Radiology | Dhara, | | | 2019 | | | DWA[address] Ross [address] | | | [address] [place], | | | | | | [place] [address] | | | | | | [phone] | | | | | | | [...] | | | | | [place] [address] | | | | | | [phone] | | | | | | | [...] [place] | | | | | | [address] | | | | | | [phone] | | | | | | | [...] | | | | | [place] [address] | | | | | | [phone] | | | | | | | | | | | | Azul Yeboah, | | | | | | MD [address] | | | | | | [place] | | | | | | [place] [address] | | | | | | [phone] | | | | | | | [...] | | | | | | [place] [address] | | | | | | [phone] | | | | | | | [...]
--- OUTSIDE RECORDS SUMMARY | ~2020-02-18 | XMS | Encounter Summary ---
Demographics + + + | Address | [address] | | | [place] [address] | + + + | Home Phone [...] Team Providers + +------+ + | Care Afternoon Nanny Name | Role | Phone | + [...] | [facility] [address] | [place] [address] | | | | [address] [place], | [phone] | | | | | [place] [address] | | | | | | [phone] | | | +--------+ + + + [...] | | | | | [place] [address] | | | | | | [phone] | | | | | | | | | | | | Forma, Julia M, | | | | | | PT | | +--------+ + + + + | 02/18/ | Appointment | Rehabilitation | Erika Ernst, | | | 2019 | | | DO [address] | | | | | | [place] [address] | | | | | | [phone] | | | | | | | | | | | | Genesis Ayon OT | | +--------+ + + + + | 02/25/ | Office | Primary Care | Erika Ernst, | | | 2019 | Visit | | DO [address] | | | | | | [place] [address] | | | | | | [phone] | | | | | | | [...] | | | | | [place] [address] | | | | | | [phone] | | | | | | | | +--------+ + + + + | 02/27/ | Appointment | Radiology | Dhara, | | | 2019 | | | [address] | | | | | | [facility] [facility], | | | | | | [place] [address] | | | | | | [phone] | | | | | | | [...] ST | | | | | | [place] [address] | | | | | | [phone] | | | | | | | [...] [place] | | | | | | [address] | | | | | | [phone] | | | | | | | [...] | | | | | [place] [address] | | | | | | [phone] | | | | | | | | | | | | Azul Yeboah, | | | | | | MD [address] | | | | | | [place] | | | | | | [place] [address] | | | | | | [phone] | | | | | | | [...] | | | | | | [place] [address] | | | | | | [phone] | | | | | | | | +--------+ + + + + documented as of this encounter Visit Diagnoses Not on filedocumented in this encounter"
--- OUTSIDE RECORDS SUMMARY | ~2020-02-18 | XMS | Encounter Summary ---
Demographics + + + | Address | [address] | | | [place] [address] | + + + | Home Phone [...] Team Providers + +------+ + | Care Expense Analyst Name | Role | Phone | + +------+ + | Erika Ernst DO | PCP | | + +------+ + Encounter Details +--------+ + + + + | Date | Type | Department | Care Team | Description | +--------+ + + + + | 12/29/ | Virtual | [facility] | Usha Rodriguez | De Quervain's | | 2020 | Office | OCCUPATIONAL HEALTH | MD Precious [address] | tenosynovitis, right | | | Visit | [address] | (Primary Dx); Place | | | | [address] [place] | [place] [address] | of occurrence, | | | | [facility], [place] | [phone] | industrial places | | | | [address] | | and premises | | | | [phone] | | | +--------+ + + + [...] encounter Progress Notes Usha Rodriguez MD - 12/30/2019 8:30 AM PDTEmployer: 2CRisk Guarantor: BETINA Date of injury: 10/17/2017 Claim number: [id number] Chief complaint: Follow-up right wrist injury, MRI review, telephonic visit Subjective: Injured worker is a 29-year-old female who presents today via telephone, in lieu of an in p erson visit, secondary to current coronavirus pandemic, and attempts at decreasing exposure and containment. Since her last visit she has had MRI imaging of the right wrist and call today to inquire a bout the results as well as to discuss further treatment recommendations. She still notes decreased strength in the wrist, does have equipment and instruction that s he was provided from occupational therapy. She did not feel that the formal occupational th erapy was very helpful in improving her strength. We did review the report from the MRI of the wrist, postsurgical changes are noted, there a re no acute findings, no obvious tenosynovitis, and minimal degenerative change of the hamat e with a small subcortical cyst over the radial aspect of the hamate. We did discuss these findings, nothing worrisome that should preclude her from increasing h er activity. Imaging/diagnostics: 12/09/2019-MRI right wrist-per radiology dictated report- IMPRESSION: 1. Postsurgical changes noted distal ulna compatible with extensor carpi ulnaris tenosynove ctomy. 2. No acute finding. 3. Minimal degenerative change noted hamate. 4. No obvious tenosynovitis. Dictated by: Chris Bedolla Pending interventions: none Assessment: 1. Right de Quervain's tenosynovitis-status post surgical release 2. Right extensor carpi ulnaris tendon tenosynovectomy 3. Bilateral carpal tunnel syndrome-per EMG-not evidenced on MRI-not administratively accep everardo 4. Cervical strain-medically stationary Plan: She continues to have discomfort despite a relatively nonacute/normal MRI of the wrist. We did discuss increasing her home exercise program to see if she can regain some of the stren gth that has been lost with the injury and previous procedures. It is likely that she may c ontinue to have persistent discomfort, however at this point time there are no specific jason tments being recommended. She will continue her home exercise program, and follow-up in 4 t o 6 weeks to recheck her progress. She will return sooner for acute worsening or other conc erns. Anticipate closing examination at her next in office appointment. She voices underst anding and agreement. E: Regular duty R: None Participant verbally confirmed the choice to initiate care by, and consents to receive care by Telephone. Injured worker has not been seen in the office within the past 7 days, and outcome of his c alls not to recommend soonest available office visit. A total of 22 minutes was spent on the phone evaluating and managing injured worker's care. This note was dictated using Anxa voice recognition software. Occasional wrong- word or sound-alike substitutions may have occurred due to the inherent limitations of voice recogni tion software. Please read the chart carefully and recognize, using context, where these hubbard bstitutions have occurred. documented in th is encounter Plan of Treatment +--------+ + + + + | Date | Type | Specialty | Care Team | Description | +--------+ + + + + | 02/18/ | Appointment | Rehabilitation | Erika Ernst, | | | 2019 | | | DO [address] [place] | | | | | | [place] [address] | | | | | | [phone] | | | | | | | | | | | | Julia Fisher, | | | | | | PT | | +--------+ + + + + | 02/18/ | Appointment | Rehabilitation | Erika Ernst, | | | 2019 | | | DO [address] [place] | | | | | | [place] [address] | | | | | | [phone] | | | | | | | | | | | | Genesis Ayon OT | | +--------+ + + + + | 02/25/ | Office | Primary Care | Erika Ernst, | | | 2019 | Visit | | DO [address] | | | | | | [place] [address] | | | | | | [phone] | | | | | | | [...] | | | | | [place] [address] | | | | | | [phone] | | | | | | | | +--------+ + + + + | 02/27/ | Appointment | Radiology | Dhara, | | | 2019 | | | [address] | | | | [address] [place], | | | | | | [place] [address] | | | | | | [phone] | | | | | | | | +--------+ + + + + | 03/04/ | Appointment | Rehabilitation | Genesis Ayon OT | | | 2019 | | | | | +--------+ + + + + | 03/09/ | Office | Orthopedic Surgery | Jeffrey Gandhi, | | | 2019 | Visit | | [place] [address] [place] [address] | | | | | | [place] [address] | | | | | | [phone] | | | | | | | [...] [place] | | | | | | [address] | | | | | | [phone] | | | | | | | [...] | | | | | [place] [address] | | | | | | [phone] | | | | | | | | | | | | Azul Yeboah, | | | | | | MD [address] | | | | | | [place] | | | | | | [place] [address] | | | | | | [phone] | | | | | | | [...] | | | | | | [place] [address] | | | | | | [phone] | | | | | | | | +--------+ + + + + documented as of this encounter Visit Diagnoses + + | Diagnosis | + + | De Karolyn's tenosynovitis, right - Primary Radial styloid tenosynovitis | + + | Place of occurrence, industrial places and premises | + + documented in this encounter"
--- OUTSIDE RECORDS SUMMARY | ~2020-02-18 | XMS | Encounter Summary ---
Demographics + + + | Address | [address] | | | [place] [address] | + + + | Home Phone [...] Team Providers + +------+ + | Care Cooling Tower Operator Name | Role | Phone | [...] | [facility] | [place] [address] | | | | [address] [place], | [phone] | | | | | [place] [address] | | | | | | [phone] | | | +--------+--------+ + + + [...] | | | | | [place] [address] | | | | | | [phone] | | | | | | | | | | | | Julia Fisher, | | | | | | PT | | +--------+ + + + + | 02/18/ | Appointment | Rehabilitation | Erika Ernst, | | | 2019 | | | DO [address] | | | | | | [place] [address] | | | | | | [phone] | | | | | | | | | | | | Genesis Ayon OT | | +--------+ + + + + | 02/25/ | Office | Primary Care | Erika Ernst, | | | 2019 | Visit | | DO [address] | | | | | | [place] [address] | | | | | | [phone] | | | | | | | [...] | | | | | [place] [address] | | | | | | [phone] | | | | | | | | +--------+ + + + + | 02/27/ | Appointment | Radiology | Dhara, | | | 2019 | | | [address] | | | | | | 4TH [facility], | | | | | | [place] [address] | | | | | | [phone] | | | | | | | [...] [place] | | | | | | [place] [address] | | | | | | [phone] | | | | | | | [...] [place] | | | | | | [address] | | | | | | [phone] | | | | | | | [...] | | | | | [place] [address] | | | | | | [phone] | | | | | | | | | | | | Azul Yeboah, | | | | | | MD [address] | | | | | | [place] | | | | | | [place] [address] | | | | | | [phone] | | | | | | | [...] | | | | | | [place] [address] | | | | | | [phone] | | | | | | | | +--------+ + + + + documented as of this encounter Visit Diagnoses Not on filedocumented in this encounter"
--- OUTSIDE RECORDS SUMMARY | ~2020-02-18 | XMS | Encounter Summary ---
Demographics + + + | Address | [address] | | | [place] [address] | + + + | Home Phone [...] Providers + +------+ + | Care Scientific Programmer Analyst Name | Role | Phone | [...] | [address] [place] | [facility], | | | | | [place], [place] | [place] [address] | | | | | [address] | [phone] | | | | | [phone] | | | +--------+ + + + [...] | 2019 | | | DO [address] [place] [address] | | | | | | [place] [address] | | | | | | [phone] | | | | | | | | | | | | Julia Fisher, | | | | | | PT | | +--------+ + + + + | 02/18/ | Appointment | Rehabilitation | Erika Ernst, | | | 2019 | | | DO [address] | | | | | | [place] [address] | | | | | | [phone] | | | | | | | | | | | | Genesis Ayon, SUSAN | | +--------+ + + + + | 02/25/ | Office | Primary Care | Erika Ernst, | | | 2019 | Visit | | DO [address] | | | | | | [place] [address] | | | | | | [phone] | | | | | | | [...] | | | | | [place] [address] | | | | | | [phone] | | | | | | | | +--------+ + + + + | 02/27/ | Appointment | Radiology | Dhara, | | | 2019 | | | [address] | | | | | | [address]TH [place], | | | | | | [place] [address] | | | | | | [phone] | | | | | | | [...] | | | | | [place] [address] | | | | | | [phone] | | | | | | | [...] [place] | | | | | | [address] | | | | | | [phone] | | | | | | | [...] | | | | | [place] [address] | | | | | | [phone] | | | | | | | | | | | | Azul Yeboah, | | | | | | MD [address] | | | | | | [place] | | | | | | [place] [address] | | | | | | [phone] | | | | | | | [...] | | | | | | [place] [address] | | | | | | [phone] | | | | | | | | +--------+ + + + + documented as of this encounter Visit Diagnoses Not on filedocumented in this encounter"
--- OUTSIDE RECORDS SUMMARY | ~2020-02-18 | XMS | Encounter Summary ---
Demographics + + + | Address | [address] | | | [place] [address] | + + + | Home Phone [...] Team Providers + +------+ + | Care Pari Mutual Ticket Checker Name | Role | Phone | [...] | | | | | | [place] [address] | [place] | | | | | | Phone: | [address] Phone: | | | | | | [phone] | [phone] | | | | | | Fax: | Fax: | | | | | | [phone] | [phone] | +--------+ + + + + + [...] | | | | disorder) | [place] [address] | [place], [place] | | | | | | Phone: | [address] | | | | | | [phone] | Phone: | | | | | | Fax: | [phone] | | | | | | [phone] | Fax: | | | | | | | [phone] | +--------+ + + + + + [...] | [facility] | [place] [address] | (Primary Dx); TMJ | | | | [address] [place], | [phone] | (temporomandibular | | | | [place] [address] | | joint disorder); | | | | [phone] | | Anxiety; Short-term | | | [...] popping of bilateral joints and does wear ase certified technician at night but would like to see [...] to the short term memory issues. No retirement loss. She also has had increased stress [...] 10 mg daily. Referral to PT at [facility] for TMJ dysfunction. Increase Buspa r to [...] | | | | | [place] [address] | | | | | | [phone] | | | | | | | | | | | | Julia Fisher, | | | | | | PT | | +--------+ + + + + | 02/18/ | Appointment | Rehabilitation | Erika Ernst, | | | 2019 | | | DO [address] | | | | | | [place] [address] | | | | | | [phone] | | | | | | | | | | | | Genesis Ayon OT | | +--------+ + + + + | 02/25/ | Office | Primary Care | Erika Ernst, | | | 2019 | Visit | | DO [address] | | | | | | [place] [address] | | | | | | [phone] | | | | | | | [...] | | | | | [place] [address] | | | | | | [phone] | | | | | | | | +--------+ + + + + | 02/27/ | Appointment | Radiology | Dhara, | | 2019 | | | [address] | | | | | | [address] [place], | | | | | | [place] [address] | | | | | | [phone] | | | | | | | | +--------+ + + + + | 03/04/ | Appointment | Rehabilitation | Genesis Ayon OT | | | 2019 | | | | | +--------+ + + + + | 03/09/ | Office | Orthopedic Surgery | Jeffrey Gandhi, | | | 2019 | Visit | | [address] | | | | | | [place] [address] | | | | | | [phone] | | | | | | | [...] [place] | | | | | | [address] | | | | | | [phone] | | | | | | | [...] | | | | | [place] [address] | | | | | | [phone] | | | | | | | | | | | | Azul Yeboah, | | | | | | MD [address] | | | | | | [place] | | | | | | [place] [address] | | | | | | [phone] | | | | | | | [...] | | | | | | [place] [address] | | | | | | [phone] | | | | | | | [...]
--- OUTSIDE RECORDS SUMMARY | ~2020-02-18 | XMS | Encounter Summary ---
Demographics + + + | Address | [address] | | | [place] [address] | + + + | Home Phone [...] Team Providers + +------+ + | Care Bromination Equipment Operator Name | Role | Phone | + +------+ + | Erika Ernst DO | PCP | | + +------+ + Reason for Visit +--------+ + | Reason | Comments | +--------+ + | URI | still not feeling better, lots of congestion. | +--------+ + Encounter Details +--------+---------+ + + + | Date | Type | Department | Care Team | Description | +--------+---------+ + + + | 12/01/ | Office | [place] [facility] | Alem Guerrero, | Viral URI with cough | | 2020 | Visit | [facility] | ELECTRIC BLANKET WIRER-HOSPICE NURSE PRACTITIONER [address] | (Primary Dx); Acute | | | | [facility] [address] | [address] | noninfective otitis | | | | [address] [place], | [place] [address] | externa of both | | | | [place] [address] | [phone] | ears, unspecified | | | | [phone] | | type | +--------+---------+ + + + Social [...] + | Blood Pressure | 139/94 | 12/02/2019 2:36 PM | left arm large cuff | | | | PST | auto | + + + + + | Pulse | 102 | 12/02/2019 2:36 PM | reg | | | | PST | | + + + + + | Temperature | 36.8 C (98.2 F) | 12/02/2019 2:36 PM | | | | | PST | | + + + + + | Respiratory Rate | 19 | 12/02/2019 2:36 PM | | | | | PST | | + + + + + | Oxygen Saturation | 99% | 12/02/2019 2:36 PM | ra | | | | PST | | [...] in this encounter Patient Instructions Patient Instructions Leslie Bowles - 12/02/2019 12:40 PM PSTViral Upper Respiratory Infection with Cough and history of asthma; bilateral otitis media - take the amoxicillin as prescribed for your ear infection - Provided three additional days of steroid. - continue inhalers and nasal sprays as previously prescribed -Use nasal saline spray frequently throughout the day. -If you can tolerate it, do sinus irrigation with a Neti pot, or similar system. If not, f requent hot, steamy showers are helpful. -Moist heat over the face can be soothing. -Tylenol or ibuprofen may be used for pain. -Recheck if pain is not improving in 2-3 days, and gone within a week. -Hearing may sometimes remain decreased/muffled for up to 6 weeks after an ear infection. This is normal and does not require a recheck, unless hearing is not back to normal within 6 weeks. documented in this encounter Progress Notes Alem Guerrero APRN-FNP - 12/02/2019 12:40 PM PSTFormatting of this note might be diffe rent from the original. Subjective: Patient ID: Andrea Suh is a 29 y.o. female. Chief Complaint Patient presents with URI still not feeling better, lots of congestion. Smoking history: Patient has no history of tobacco use. HPI The patient is here today for URI like symptoms. Onset five days ago. Patient was seen in [facility] on 11/26/2019 and was diagnosed with a viral URI with cough (pharyngitis, ear pressure ). She was also given Spiriva and Prednisone (5 days) treatments by her learning coach on 11/25/19. She is reporting that her symptoms are not improving and her ear pain has worsened. Ass ociated symptoms today include pharyngitis, bilateral ear pressure, sinus pressure with drai nage, productive cough, shortness of breath on exertion, wheezing, fever (over the weekend, subjective), burning in chest when breathing. Patient feels worse today than she did yesterd ay. Pertinent negatives include nausea, vomiting. Patient has finished her previously prescr ibed steroid prescription but still reports some wheezing and tightness in chest. Tried Tyle nol, increased fluid intake, OTC cough syrup, Flonase with some relief. Patient is using all three of her scheduled inhalers and has been using her albuterol inhaler once or twice a da y. She finished a steroid burst from her yarn twister a couple days ago and has noticed th at her wheezing has worsened since then. Patient has a history of sinus infections. Patient has a history of chronic ear infections. Allergies Allergen Reactions Latex Rash Lexapro [Escitalopram] Palpitations Ciprofloxacin Nausea Only Deblitane [Norethindrone] Hydrocodone Hives Milk Unknown Nickel Dermatitis, Itching and Swelling Uncoded Nonscreenable Allergen Other (See Comments) Other reaction(s): Proclivity to C-diff with certain antibiotics Adhesive & Tape Rash Patient Active Problem List Diagnosis Date Noted POA Hypertrophy of nasal turbinates 11/28/2019 Unknown Sprain of deltoid ligament of right ankle, subsequent encounter 11/21/2019 Unknown Anxiety with somatization 11/05/2019 Unknown ALVAREZ (obstructive sleep apnea) 11/01/2019 Unknown Reactive depression 10/24/2019 Unknown Multiple thyroid nodules 07/31/2019 Unknown Iron deficiency 05/20/2019 Unknown S/P right ECU tenosynovectomy on 03/20/19 [...] Asthma due to environmental allergies 02/16/2018 Unknown Acquired hypothyroidism 02/16/2018 Unknown Class 3 severe obesity due [...] tablet by mouth every evening (Patient maci vivek differently: Once a week.) 30 tablet 11 ondansetron (ZOFRAN ODT) 8 mg disintegrating tablet Take 1 tablet by mouth every 8 hour s as needed for Nausea. 12 tablet 0 prazosin (MINIPRESS) 1 mg capsule Take BID 60 capsule 11 QVAR REDIHALER 80 MCG/ACT inhaler Take 2 [...] as needed. UNABLE TO FIND Med Name: regill Valerian Root 250 MG CAPS Take by mouth. Zinc 10 MG LOZG No current facility-administered medications on file prior to visit. Objective: BP (!) 139/94 Comment: left arm large cuff auto | Pulse 102 Comment: reg | Temp 36.8 C (9 8.2 F) (Temporal) | Resp 19 | SpO2 99% Comment: ra Physical Exam Constitutional: She is oriented to person, place, and time. She appears well-developed and well-nourished. Appears mildly unwell HENT: Head: Normocephalic and atraumatic. Right Ear: Hearing, external ear and ear canal normal. Tympanic membrane is erythematous an d bulging. Left Ear: Hearing, external ear and ear canal normal. Tympanic membrane is erythematous and bulging. Nose: Right sinus exhibits maxillary sinus tenderness. Left sinus exhibits maxillary sinus tenderness. Mouth/Throat: Uvula is midline. Posterior oropharyngeal erythema (very mild) present. Bilateral erythema present in ears Eyes: Pupils are equal, round, and reactive to light. Conjunctivae and EOM are normal. Neck: Neck supple. Cardiovascular: Normal rate, regular rhythm and normal heart sounds. Pulmonary/Chest: Effort normal and breath sounds normal. No respiratory distress. She has n o wheezes. Lymphadenopathy: She has no cervical adenopathy. Neurological: She is alert and oriented to person, place, and time. Skin: Skin is warm and dry. No rash noted. No pallor. Psychiatric: She has a normal mood and affect. No results found for this or any previous visit (from the past 24 hour(s)). None Assessment: 1. Viral URI with cough - predniSONE (DELTASONE) 20 mg tablet; Take 2 tablets by mouth Daily for 3 days. Dispense: 6 tablet; Refill: 0 - amoxicillin (AMOXIL) 875 mg tablet; Take 1 tablet by mouth 2 times daily for 7 days. Dis pense: 14 tablet; Refill: 0 2. Acute noninfective otitis externa of both ears, unspecified type - amoxicillin (AMOXIL) 875 mg tablet; Take 1 tablet by mouth 2 times daily for 7 days. Dis pense: 14 tablet; Refill: 0 Plan: Viral URI with cough and bilateral otits media Patient presents to the clinic today with a productive cough, sinus pressure, and bilateral ear pressure/pain onset five days ago. Pertinent findings in the physical exam include bila teral TM erythema with bulging. Nontoxic appearance with stable vitals. Afebrile Will treat with steroid burst and amoxicillin - Supportive care encouraged: Warm liquids with honey, humidifier at bedside, rest, increas e fluid intake - Follow up with PCP if symptoms do not improve or worsen Strict ED precautions discussed Return if symptoms worsen or fail to improve, for with pcp. Electronically signed by: CHASE Edward 12/02/20193:28 PM [facility]in [facility] Note: Part of this report was transcribed using voice recognition software. Every effort wa s made to ensure accuracy. However, inadvertent computerized inspector agricultural commodities errors may be pre sent. This documentation prepared by Leslie Bowles medical research scientist. All aspects of this chart reviewed for accuracy and content by Alem Guerrero SUPERVISOR METAL FURNITURE FABRICATION-C at the date and time of service. ox, Haseeb Salter RN - 12/02/2019 12:40 PM PSTPatient worried that she "could have been exposed" to a posit junior case. She was feeling sick before, no new symptoms. Wants to be seen for ongoing URI. Due to possible exposure, isolated patient until it was found out that she does not have an y new symptoms concerning for coronavirus. Haseeb Mcguire RN documented in this enc ounter Plan of Treatment +--------+ + + + + | Date | Type | Specialty | Care Team | Description | +--------+ + + + + | 02/18/ | Appointment | Rehabilitation | Erika Ernst, | | | 2019 | | | DO [address] | | | | | | [place] [address] | | | | | | [phone] | | | | | | | | | | | | Julia Fisher, | | | | | | PT | | +--------+ + + + + | 02/18/ | Appointment | Rehabilitation | Erika Ernst, | | | 2019 | | | DO [address] | | | | | | [place] [address] | | | | | | [phone] | | | | | | | | | | | | Genesis Ayon OT | | +--------+ + + + + | 02/25/ | Office | Primary Care | Erika Ernst, | | | 2019 | Visit | | DO [address] | | | | | | [place] [address] | | | | | | [phone] | | | | | | | [...] | | | | | [place] [address] | | | | | | [phone] | | | | | | | | +--------+ + + + + | 02/27/ | Appointment | Radiology | Dhara, | | | 2019 | | | DWAINE Ross [address] | | | | | [address] [place], | | | | | | [place] [address] | | | | | | [phone] | | | | | | | | +--------+ + + + + | 03/04/ | Appointment | Rehabilitation | Genesis Ayon OT | | | 2019 | | | | | +--------+ + + + + | 03/09/ | Office | Orthopedic Surgery | Jeffrey Gandhi, | | | 2019 | Visit | | [place] [address] [facility] [facility] | | | | | | [place] [address] | | | | | | [phone] | | | | | | | [...] [place] | | | | | | [address] | | | | | | [phone] | | | | | | | [...] | | | | | [place] [address] | | | | | | [phone] | | | | | | | | | | | | Azul Yeboah, | | | | | | [address] | | | | | | [place] | | | | | | [place] [address] | | | | | | [phone] | | | | | | | [...] | | | | | | [place] [address] | | | | | | [phone] | | | | | | | | +--------+ + + + + documented as of this encounter Visit Diagnoses + + | Diagnosis | + + | Viral URI with cough - Primary Acute upper respiratory infections of unspecified site | + + | Acute noninfective otitis externa of both ears, unspecified type | + + documented in this encounter
--- OUTSIDE RECORDS SUMMARY | ~2020-02-18 | XMS | Encounter Summary ---
Demographics + + + | Address | [address] | | | [place] [address] | + + + | Home Phone [...] Providers + +------+ + | Care Plant Production Worker Name | Role | Phone | [...] | | | [place] | [address] | | | | | [address] | | | | | | [phone] | | | +--------+ + + + [...] | | | | | [place] [address] | | | | | | [phone] | | | | | | | | | | | | Julia Fisher, | | | | | | PT | | +--------+ + + + + | 02/18/ | Appointment | Rehabilitation | Erkia Ernst, | | | 2019 | | | DO [address] | | | | | | [place] [address] | | | | | | [phone] | | | | | | | | | | | | Genesis Ayon, SUSAN | | +--------+ + + + + | 02/25/ | Office | Primary Care | Erika Ernst, | | | 2019 | Visit | | DO [address] [place] [address] | | | | | | [place] [address] | | | | | | [phone] | | | | | | | [...] | | | | | [place] [address] | | | | | | [phone] | | | | | | | | +--------+ + + + + | 02/27/ | Appointment | Radiology | Dhara, | | | 2019 | | | [address] | | | | | [address] [place], | | | | | | [place] [address] | | | | | | [phone] | | | | | | | | +--------+ + + + + | 03/04/ | Appointment | Rehabilitation | Genesis Ayon OT | | | 2019 | | | | | +--------+ + + + + | 03/09/ | Office | Orthopedic Surgery | Jeffrey Gandhi, | | | 2019 | Visit | | [address] | | | | | | [place] [address] | | | | | | [phone] | | | | | | | [...] [place] | | | | | | [address] | | | | | | [phone] | | | | | | | [...] | | | | | [place] [address] | | | | | | [phone] | | | | | | | | | | | | Azul Yeboah, | | | | | | MD [address] | | | | | | [place] | | | | | | [place] [address] | | | | | | [phone] | | | | | | | [...] | | | | | | [place] [address] | | | | | | [phone] | | | | | | | | +--------+ + + + + documented as of this encounter Visit Diagnoses Not on filedocumented in this encounter"
--- OUTSIDE RECORDS SUMMARY | ~2020-02-18 | XMS | Encounter Summary ---
Demographics + + + | Address | [address] | | | [place] [address] | + + + | Home Phone [...] Providers + +------+ + | Care Sound Technician Supervisor Name | Role | Phone | + +------+ + PCP | Unavailable | + +------+ + Encounter Details +--------+ + + + + | Date | Type | Department | Care Team | Description | +--------+ + + + + | 08/31/ | [facility] [place] [facility] | Denise Mcgregor | | | 2016 | Encounter | [facility] | G, LITIGATION SUPPORT ANALYST | | | | | [facility]ICAL CL[facility] [address] | | | | | | [address] [facility] [place], | | | | | | [place] [address] | | | | | | [phone] | | | +--------+ + + + [...] | | | | | [place] [address] | | | | | | [phone] | | | | | | | | | | | | Julia Fisher, | | | | | | PT | | +--------+ + + + + | 02/18/ | Appointment | Rehabilitation | Erika Ernst, | | 2019 | | | DO [address] [place] | | | | | | [place] [address] | | | | | | [phone] | | | | | | | | | | | | Genesis Ayon, SUSAN | | +--------+ + + + + | 02/25/ | Office | Primary Care | Erika Ernst, | | | 2019 | Visit | | DO [address] [place] [address] | | | | | | [place] [address] | | | | | | [phone] | | | | | | | [...] | | | | | [place] [address] | | | | | | [phone] | | | | | | | | +--------+ + + + + | 02/27/ | Appointment | Radiology | Dhara, | | | 2019 | | | [address]WA[address] | | | | | [address] [place], | | | | | | [place] [address] | | | | | | [phone] | | | | | | | [...] | | | | | [place] [address] | | | | | | [phone] | | | | | | | [...] [place] | | | | | | [address] | | | | | | [phone] | | | | | | | [...] | | | | | [place] [address] | | | | | | [phone] | | | | | | | | | | | | Azul Yeboah, | | | | | | MD [address] | | | | | | [place] | | | | | | [place] [address] | | | | | | [phone] | | | | | | | [...] | | | | | | [place] [address] | | | | | | [phone] | | | | | | | | +--------+ + + + + documented as of this encounter Visit Diagnoses Not on filedocumented in this encounter"
--- OUTSIDE RECORDS SUMMARY | ~2020-02-18 | XMS | Encounter Summary ---
Demographics + + + | Address | [address] | | | [place] [address] | + + + | Home Phone [...] Team Providers + +------+ + | Care Leverman Name | Role | Phone | + [...] [place] | | | | | [address] | [address] | | | | | [phone] | [phone] | | | | | | | [...] | | | | | [place] [address] | | | | | | [phone] | | | | | | | | | | | | Julia Fisher, | | | | | | PT | | +--------+ + + + + | 02/18/ | Appointment | Rehabilitation | Erika Ernst, | | | 2019 | | | DO [address] [place] | | | | | | [place] [address] | | | | | | [phone] | | | | | | | | | | | | Genesis Ayon, OT | | +--------+ + + + + | 02/25/ | Office | Primary Care | Erika Ernst, | | | 2019 | Visit | | DO [address] [place] | | | | | | [place] [address] | | | | | | [phone] | | | | | | | [...] | | | | | [place] [address] | | | | | | [phone] | | | | | | | | +--------+ + + + + | 02/27/ | Appointment | Radiology | Dhara, | | | 2019 | | | [address] | | | | | | [address] [facility], | | | | | | [place] [address] | | | | | | [phone] | | | | | | | | +--------+ + + + + | 03/04/ | Appointment | Rehabilitation | Genesis Ayon OT | | | 2019 | | | | | +--------+ + + + + | 03/09/ | Office | Orthopedic Surgery | Jeffrey Gandhi, | | | 2019 | Visit | | [address] | | | | | | [place] [address] | | | | | | [phone] | | | | | | | [...] [place] | | | | | | [address] | | | | | | [phone] | | | | | | | [...] | | | | | [place] [address] | | | | | | [phone] | | | | | | | | | | | | Azul Yeboah, | | | | | | MD [address] | | | | | | [place] | | | | | | [place] [address] | | | | | | [phone] | | | | | | | [...] | | | | | | [place] [address] | | | | | | [phone] | | | | | | | | +--------+ + + + + documented as of this encounter Visit Diagnoses Not on filedocumented in this encounter"
--- OUTSIDE RECORDS SUMMARY | ~2020-02-18 | XMS | Encounter Summary ---
Demographics + + + | Address | [address] | | | [place] [address] | + + + | Home Phone [...] Providers + +------+ + | Care Video Game Technician Name | Role | Phone | [...] + + + + | 12/25/ | Clinical | [place] [facility] | Harvey, | | | 2020 | Support | [facility] | [place], [facility] | | | | | [facility] [address] [place] | | | | | [address] [place], | [place] [address] | | | | | [place] [address] | [phone] | | | | | [phone] | | | | | | | Erika Ernst, | | | | | | [address] [place] | | | | | | [place] [address] | | | | | | [phone] | | | | | | | [...] + documented as of this encounter Progress Eden Mauro LPN - 12/26/2019 1:00 PM PDTPatient states after leaving the ER, she was not given instructions on what she needed to do. She states she cannot see clearly and is foggy, which is hard to look at a computer, and wa s wondering what do for her work, Per Dr. Ernst a Letter was written to excuse patient from work today. Patient states understanding, she was informed to make an appointment 5-7 days if not doing any better. Patient stats understanding. Eden Brown LPN documented in this encounter Plan of Treatment +--------+ + + + + | Date | Type | Specialty | Care Team | Description | +--------+ + + + + | 02/18/ | Appointment | Rehabilitation | Erika Ernst, | | | 2019 | | | DO [address] [place] | | | | | | [place] [address] | | | | | | [phone] | | | | | | | | | | | | Julia Fisher, | | | | | | PT | | +--------+ + + + + | 02/18/ | Appointment | Rehabilitation | Erika Ernst, | | | 2019 | | | DO [address] [place] | | | | | | [place] [address] | | | | | | [phone] | | | | | | | | | | | | [facility] | | +--------+ + + + + | 02/25/ | Office | Primary Care | Erika Ernst, | | | 2019 | Visit | | DO [address] [place] | | | | | | [place] [address] | | | | | | [phone] | | | | | | | [...] | | | | | [place] [address] | | | | | | [phone] | | | | | | | | +--------+ + + + + | 02/27/ | Appointment | Radiology | Dhara, | | | 2019 | | | [address] | | | | | | [address] [place], | | | | | | [place] [address] | | | | | | [phone] | | | | | | | | +--------+ + + + + | 03/04/ | Appointment | Rehabilitation | [facility] OT | | | 2019 | | | | | +--------+ + + + + | 03/09/ | Office | Orthopedic Surgery | Jeffrey Gandhi, | | | 2019 | Visit | | [facility] [address] [facility] | | | | | | [place] [address] | | | | | | [phone] | | | | | | | [...] [place] | | | | | | [address] | | | | | | [phone] | | | | | | | [...] | | | | | [place] [address] | | | | | | [phone] | | | | | | | | | | | | Azul Yeboah, | | | | | | MD [address] | | | | | | [place] | | | | | | [place] [address] | | | | | | [phone] | | | | | | | [...] | | | | | | [address] [place], | | | | | | [place] [address] | | | | | | [phone] | | | | | | | | +--------+ + + + + documented as of this encounter Visit Diagnoses Not on filedocumented in this encounter"
--- OUTSIDE RECORDS SUMMARY | ~2020-02-18 | XMS | Encounter Summary ---
Demographics + + + | Address | [address] | | | [place] [address] | + + + | Home Phone [...] Team Providers + +------+ + | Care Dyehouse Worker Name | Role | Phone | [...] [address] | | | | | [place] [address] | | | | | | [phone] | | | +--------+ + + + [...] | | | | | [place] [address] | | | | | | [phone] | | | | | | | | | | | | Julia Fisher, | | | | | | PT | | +--------+ + + + + | 02/18/ | Appointment | Rehabilitation | Erika Ernst, | | | 2019 | | | DO [address] [place] | | | | | | [place] [address] | | | | | | [phone] | | | | | | | | | | | | [facility] OT | | +--------+ + + + + | 02/25/ | Office | Primary Care | Erika Ernst, | | | 2019 | Visit | | DO [address] [place] | | | | | | [place] [address] | | | | | | [phone] | | | | | | | [...] | | | | | [place] [address] | | | | | | [phone] | | | | | | | | +--------+ + + + + | 02/27/ | Appointment | Radiology | Dhara, | | | 2019 | | | [address] | | | | | | 4TH [facility], | | | | | | [place] [address] | | | | | | [phone] | | | | | | | [...] | | | | | [place] [address] | | | | | | [phone] | | | | | | | [...] [place] | | | | | | [address] | | | | | | [phone] | | | | | | | [...] | | | | | [place] [address] | | | | | | [phone] | | | | | | | | | | | | Azul Yeboah, | | | | | | MD [address] | | | | | | [place] | | | | | | [place] [address] | | | | | | [phone] | | | | | | | [...] | | | | | | [place] [address] | | | | | | [phone] | | | | | | | | +--------+ + + + + documented as of this encounter Visit Diagnoses Not on filedocumented in this encounter"
--- OUTSIDE RECORDS SUMMARY | ~2020-02-18 | XMS | Encounter Summary ---
Demographics + + + | Address | [address] | | | [place] [address] | + + + | Home Phone [...] Team Providers + +------+ + | Care Cesspool Cleaner Name | Role | Phone | [...] | | | [place], [place] | [address] | | | | | [address] | | | | | | [phone] | | | +--------+ + + + [...] | | | | | [place] [address] | | | | | | [phone] | | | | | | | | | | | | Julia Fisher, | | | | | | PT | | +--------+ + + + + | 02/18/ | Appointment | Rehabilitation | Erika Ernst, | | | 2019 | | | DO [address] [place] | | | | | | [place] [address] | | | | | | [phone] | | | | | | | | | | | | [facility] | | +--------+ + + + + | 02/25/ | Office | Primary Care | Erika Ernst, | | | 2019 | Visit | | DO [address] [place] | | | | | | [place] [address] | | | | | | [phone] | | | | | | | [...] | | | | | | [place] [address] | | | | | | [phone] | | | | | | | | +--------+ + + + + | 02/27/ | Appointment | Radiology | Dhara, | | | 2019 | | | [address]WAINE Ross [address] | | | | | | 4TH [facility], | | | | | | [place] [address] | | | | | | [phone] | | | | | | | | +--------+ + + + + | 03/04/ | Appointment | Rehabilitation | [facility] Ayon OT | | | 2019 | | | | | +--------+ + + + + | 03/09/ | Office | Orthopedic Surgery | Jeffrey Gandhi, | | | 2019 | Visit | | [address] | | | | | | [place] [address] | | | | | | [phone] | | | | | | | [...] [place] | | | | | | [address] | | | | | | [phone] | | | | | | | [...] | | | | | [place] [address] | | | | | | [phone] | | | | | | | | | | | | Azul Yeboah, | | | | | | MD [address] | | | | | | [place] | | | | | | [place] [address] | | | | | | [phone] | | | | | | | [...] | | | | | | [place] [address] | | | | | | [phone] | | | | | | | | +--------+ + + + + documented as of this encounter Visit Diagnoses Not on filedocumented in this encounter"
--- OUTSIDE RECORDS SUMMARY | ~2020-02-18 | XMS | Encounter Summary ---
Demographics + + + | Address | [address] | | | [place] [address] | + + + | Home Phone [...] + +------+ + | Care Dental Office Assistant Name | Role | Phone | + +------+ + | Erika Ernst DO | PCP | | + +------+ + Encounter Details +--------+ + + + + | Date | Type | Department | Care Team | Description | +--------+ + + + + | 07/16/ | Telephone | [place] [facility] | Danial T[facility] | | | 2017 | | H[facility]PITAL THERAPY PT | K, PT | | | | | [address] | | | | | | [place] | | | | | | [address] | | | | | | [phone] | | | +--------+ + + + [...] | | | | | [place] [address] | | | | | | [phone] | | | | | | | | | | | | Julia Fisher, | | | | | | PT | | +--------+ + + + + | 02/18/ | Appointment | Rehabilitation | Erika Ernst, | | | 2019 | | | DO [address] [place] | | | | | | [place] [address] | | | | | | [phone] | | | | | | | | | | | | [facility] | | +--------+ + + + + | 02/25/ | Office | Primary Care | Erika Ernst, | | | 2019 | Visit | | DO [address] [place] [address] | | | | | | [place] [address] | | | | | | [phone] | | | | | | | [...] | | | | | [place] [address] | | | | | | [phone] | | | | | | | | +--------+ + + + + | 02/27/ | Appointment | Radiology | Dhara, | | 2019 | | | [address]WA[address] | | | | | | [address] [place], | | | | | | [place] [address] | | | | | | [phone] | | | | | | | | +--------+ + + + + | 03/04/ | Appointment | Rehabilitation | [facility]yon OT | | | 2019 | | | | | +--------+ + + + + | 03/09/ | Office | Orthopedic Surgery | Jeffrey Gandhi, | | | 2019 | Visit | | MD [address] [facility] [facility] | | | | | | [place] [address] | | | | | | [phone] | | | | | | | [...] [place] | | | | | | [address] | | | | | | [phone] | | | | | | | [...] | | | | | [place] [address] | | | | | | [phone] | | | | | | | | | | | | Azul Yeboah, | | | | | | [address] | | | | | | [place] | | | | | | [place] [address] | | | | | | [phone] | | | | | | | [...] | | | | | | [place] [address] | | | | | | [phone] | | | | | | | | +--------+ + + + + documented as of this encounter Visit Diagnoses Not on filedocumented in this encounter"
--- OUTSIDE RECORDS SUMMARY | ~2020-02-18 | XMS | Encounter Summary ---
Demographics + + + | Address | [address] | | | [place] [address] | + + + | Home Phone [...] Team Providers + +------+ + | Care Primary Care Nurse Name | Role | Phone | [...] | [facility] [address] | [place] [address] | | | | | [address] [place], | [phone] | | | | | [place] [address] | | | | | | [phone] | | | +--------+ + + + [...] | | | | | [place] [address] | | | | | | [phone] | | | | | | | | | | | | Forma, Julia M, | | | | | | PT | | +--------+ + + + + | 02/18/ | Appointment | Rehabilitation | Erika Ernst, | | | 2019 | | | DO [address] [place] | | | | | | [place] [address] | | | | | | [phone] | | | | | | | | | | | | [facility] | | +--------+ + + + + | 02/25/ | Office | Primary Care | Erika Ernst, | | | 2019 | Visit | | DO [address] [place] | | | | | | [place] [address] | | | | | | [phone] | | | | | | | [...] | | | | | [place] [address] | | | | | | [phone] | | | | | | | | +--------+ + + + + | 02/27/ | Appointment | Radiology | Dhara, | | | 2019 | | | [address]WAINE [address] | | | | | | 4TH [facility], | | | | | | [place] [address] | | | | | | [phone] | | | | | | | [...] ST | | | | | | [place] [address] | | | | | | [phone] | | | | | | | [...] [place] | | | | | | [address] | | | | | | [phone] | | | | | | | [...] | | | | | [place] [address] | | | | | | [phone] | | | | | | | | | | | | Azul Yeboah, | | | | | | MD [address] | | | | | | [place] | | | | | | [place] [address] | | | | | | [phone] | | | | | | | [...] | | | | | | [place] [address] | | | | | | [phone] | | | | | | | | +--------+ + + + + documented as of this encounter Visit Diagnoses Not on filedocumented in this encounter"
--- OUTSIDE RECORDS SUMMARY | ~2020-02-18 | XMS | Encounter Summary ---
Demographics + + + | Address | [address] | | | [place] [address] | + + + | Home Phone [...] Team Providers + +------+ + | Care State Farm Agent Name | Role | Phone | [...] Medication Refill | | 2017 | | [facility] | DO [address] | | | | | MEDICAL [facility] [address] | [place] [address] | | | | | [address] [place], | [phone] | | | | | [place] [address] | | | | | | [phone] | | | +--------+--------+ + + + [...] | | | | | [place] [address] | | | | | | [phone] | | | | | | | | | | | | Julia Fisher, | | | | | | PT | | +--------+ + + + + | 02/18/ | Appointment | Rehabilitation | Erika Ernst, | | | 2019 | | | DO [address] [place] | | | | | | [place] [address] | | | | | | [phone] | | | | | | | | | | | | [facility] | | +--------+ + + + + | 02/25/ | Office | Primary Care | Erika Ernst, | | | 2019 | Visit | | DO [address] [place] | | | | | | [place] [address] | | | | | | [phone] | | | | | | | [...] | | | | | [place] [address] | | | | | | [phone] | | | | | | | | +--------+ + + + + | 02/27/ | Appointment | Radiology | Dhara, | | | 2019 | | | [address] | | | | | | 4TH [facility], | | | | | | [place] [address] | | | | | | [phone] | | | | | | | [...] | | | | | [place] [address] | | | | | | [phone] | | | | | | | [...] [place] | | | | | | [address] | | | | | | [phone] | | | | | | | [...] | | | | | [place] [address] | | | | | | [phone] | | | | | | | | | | | | Azul Yeboah, | | | | | | MD [address] | | | | | | [place] | | | | | | [place] [address] | | | | | | [phone] | | | | | | | [...] | | | | | | [place] [address] | | | | | | [phone] | | | | | | | | +--------+ + + + + documented as of this encounter Visit Diagnoses + + | Diagnosis | + + | Asthma, unspecified asthma severity, unspecified whether complicated, unspecified | | whether persistent - Primary | + + documented in this encounter"
--- OUTSIDE RECORDS SUMMARY | ~2020-02-18 | XMS | Encounter Summary ---
Demographics + + + | Address | [address] | | | [place] [address] | + + + | Home Phone [...] Team Providers + +------+ + | Care Shoelace Tipping Machine Operator Name | Role | Phone [...] Results, Imaging | | 2019 | | [facility] | OPERATIONS SUPPORT MANAGER | | | | | MEDICAL CLINIC [address] | | | | | | [address] [facility] [place], | | | | | | [place] [address] | | | | | | [phone] | | | +--------+ + + + [...] | | | | | [place] [address] | | | | | | [phone] | | | | | | | | | | | | Julia Fisher, | | | | | | PT | | +--------+ + + + + | 02/18/ | Appointment | Rehabilitation | Erika Ernst, | | | 2019 | | | DO [address] [place] | | | | | | [place] [address] | | | | | | [phone] | | | | | | | | | | | | [facility] | | +--------+ + + + + | 02/25/ | Office | Primary Care | Erika Ernst, | | | 2019 | Visit | | DO [address] [place] | | | | | | [place] [address] | | | | | | [phone] | | | | | | | [...] | | | | | | [place] [address] | | | | | | [phone] | | | | | | | | +--------+ + + + + | 02/27/ | Appointment | Radiology | Dhara, | | | 2019 | | | [address]WA[address] Ross [address] | | | | | | [address] [place], | | | | | | [place] [address] | | | | | | [phone] | | | | | | | [...] [place] | | | | | | [place] [address] | | | | | | [phone] | | | | | | | [...] [place] | | | | | | [address] | | | | | | [phone] | | | | | | | [...] | | | | | [place] [address] | | | | | | [phone] | | | | | | | | | | | | Azul Yeboah, | | | | | | [address] | | | | | | [place] | | | | | | [place] [address] | | | | | | [phone] | | | | | | | [...] | | | | | | [place] [address] | | | | | | [phone] | | | | | | | | +--------+ + + + + documented as of this encounter Visit Diagnoses Not on filedocumented in this encounter"
--- OUTSIDE RECORDS SUMMARY | ~2020-02-18 | XMS | Encounter Summary ---
Demographics + + + | Address | [address] | | | [place] [address] | + + + | Home Phone [...] Team Providers + +------+ + | Care Fibre Technologist Name | Role | Phone | [...] | | | | | | [place] [address] | | | | | | [phone] | | | +--------+ + + + [...] those with campos gnosed COVID-19. 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 Carola [...] | | | | | [place] [address] | | | | | | [phone] | | | | | | | | | | | | Julia Fisher, | | | | | | PT | | +--------+ + + + + | 02/18/ | Appointment | Rehabilitation | Erika Ernst, | | | 2019 | | | DO [address] [place] | | | | | | [place] [address] | | | | | | [phone] | | | | | | | | | | | | Genesis Ayon, OT | | +--------+ + + + + | 02/25/ | Office | Primary Care | Erika Ernst, | | | 2019 | Visit | | DO [address] [place] | | | | | | [place] [address] | | | | | | [phone] | | | | | | | [...] | | | | | [place] [address] | | | | | | [phone] | | | | | | | | +--------+ + + + + | 02/27/ | Appointment | Radiology | Dhara, | | | 2019 | | | [address] | | | | | | [address] [place], | | | | | | [place] [address] | | | | | | [phone] | | | | | | | | +--------+ + + + + | 03/04/ | Appointment | Rehabilitation | Genesis Ayon OT | | | 2019 | | | | | +--------+ + + + + | 03/09/ | Office | Orthopedic Surgery | Jeffrey Gnadhi, | | 2019 | Visit | | [address] [facility] | | | | | | [place] [address] | | | | | | [phone] | | | | | | | | +--------+ + + + + | 03/11/ | Appointment | Rehabilitation | Genesis Ayon OT | | 2019 | | | | | +--------+ + + + + | 03/18/ | Appointment | Rehabilitation | Genesis y[facility]on OT | | 2019 | | | | | +--------+ + + + + | 03/19/ | Office | Obstetrics and | Emily Avery | | | 2019 | Visit | Gynecology | DO [address] | | | | [address] [place] [place] | | | | | | [place], [place] | | | | | | [address] | | | | | | [phone] | | | | | | | [...] | | | | | [place] [address] | | | | | | [phone] | | | | | | | | | | | | Azul Yeboah, | | | | | | MD [address] | | | | | | [place] | | | | | | [place] [address] | | | | | | [phone] | | | | | | | [...] | | | | | | [place] [address] | | | | | | [phone] | | | | | | | | +--------+ + + + + documented as of this encounter Visit Diagnoses Not on filedocumented in this encounter"
--- OUTSIDE RECORDS SUMMARY | ~2020-02-18 | XMS | Encounter Summary ---
Demographics + + + | Address | [address] | | | [place] [address] | + + + | Home Phone [...] Team Providers + +------+ + | Care Medieval English Literature Professor Name | Role | Phone | [...] | MONITOR - [address] | [place] | [address] | | | | | HOUR | [address] | Phone: | | | | | | Phone: | [phone] | | | | | | [phone] | Fax: | | | | | | Fax: | [phone] | | | | | | [phone] | | +--------+--------+ + + + + [...] | THERAPY [address] | [place] [address] | | | | | [place] | [phone] | | | | | [address] | | | | | | [phone] | | | +--------+ + + + [...] | 11/26/19 | | | (VITAMIN D3) 00710 | mouth Once a week | tablet [...] of this encounter Progress Notes Mauro Rae, EXHIBIT TECHNICIAN - 12/21/2018 10:23 AM PDTZio Patch placed on Andrea Suh for 2 days. Zio Patch Serial #: [id number]. Tegoderm applied over Zio Patch (Upper and Lower Wings) to help with placement and adhesion . Andrea Suh asked to call the [facility] department if any allergic reaction occurs. Patient given verbal and written instructions. Patient to call the [facility] Department with any concerns or issues. Electronically signed by: Mauro Rae RRT 12/21/2018 10:23 documented in this encounter Plan of Treatment +--------+ + + + + | Date | Type | Specialty | Care Team | Description | +--------+ + + + + | 02/18/ | Appointment | Rehabilitation | Erika Ernst, | | | 2019 | | | DO ST [address] | | | | | | [place] [address] | | | | | | [phone] | | | | | | | | | | | | Julia Fisher, | | | | | | PT | | +--------+ + + + + | 02/18/ | Appointment | Rehabilitation | Erika Ernst, | | | 2019 | | | DO [address] [place] | | | | | | [place] [address] | | | | | | [phone] | | | | | | | | | | | | [facility] | | +--------+ + + + + | 02/25/ | Office | Primary Care | Erika Ernst, | | | 2019 | Visit | | DO [address] [place] | | | | | | [place] [address] | | | | | | [phone] | | | | | | | [...] | | | | | [place] [address] | | | | | | [phone] | | | | | | | | +--------+ + + + + | 02/27/ | Appointment | Radiology | Dhara, | | | 2019 | | | [address] | | | | | | [address]TH [facility], | | | | | | [place] [address] | | | | | | [phone] | | | | | | | [...] [place] | | | | | | [place] [address] | | | | | | [phone] | | | | | | | [...] [place] | | | | | | [address] | | | | | | [phone] | | | | | | | [...] | | | | | [place] [address] | | | | | | [phone] | | | | | | | | | | | | Azul Yeboah, | | | | | | MD [address] | | | | | | [place] | | | | | | [place] [address] | | | | | | [phone] | | | | | | | [...] | | [address] [place], | | | | | | [place] [address] | | | | | | [phone] | | | | | | | [...]
--- OUTSIDE RECORDS SUMMARY | ~2020-02-18 | XMS | Encounter Summary ---
Demographics + + + | Address | [address] | | | [place] [address] | + + + | Home Phone [...] Providers + +------+ + | Care Sales Representative Electric Service Name | Role | Phone | + +------+ + PCP | Unavailable | + +------+ + Encounter Details +--------+ + + + + | Date | Type | Department | Care Team | Description | +--------+ + + + + | 05/17/ | [facility] | Bo Bhat | | | 2013 | Encounter | [facility] | [address] | | | | | CENTER [address] [place], [place] | | | | | [place], [place] | [address] | | | | | [address] | | | | | | [phone] | | | +--------+ + + + [...] | | | | | [place] [address] | | | | | | [phone] | | | | | | | | | | | | Julia Fisher, | | | | | | PT | | +--------+ + + + + | 02/18/ | Appointment | Rehabilitation | Erika Ernst, | | | 2019 | | | DO [address] [place] | | | | | | [place] [address] | | | | | | [phone] | | | | | | | | | | | | [facility] | | +--------+ + + + + | 02/25/ | Office | Primary Care | Erika Ernst, | | | 2019 | Visit | | DO [address] [place] | | | | | | [place] [address] | | | | | | [phone] | | | | | | | [...] | | | | | [place] [address] | | | | | | [phone] | | | | | | | | +--------+ + + + + | 02/27/ | Appointment | Radiology | Dhara, | | | 2019 | | | [address] | | | | | | 4TH [facility], | | | | | | [place] [address] | | | | | | [phone] | | | | | | | | +--------+ + + + + | 03/04/ | Appointment | Rehabilitation | [facility] OT | | | 2019 | | | | | +--------+ + + + + | 03/09/ | Office | Orthopedic Surgery | Jeffrey Gandhi, | | | 2019 | Visit | | [address] [facility] | | | | | | [place] [address] | | | | | | [phone] | | | | | | | [...] [place] | | | | | | [address] | | | | | | [phone] | | | | | | | [...] | | | | | [place] [address] | | | | | | [phone] | | | | | | | | | | | | Azul Yeboah, | | | | | | MD [address] | | | | | | [place] | | | | | | [place] [address] | | | | | | [phone] | | | | | | | [...] | | | | | | [place] [address] | | | | | | [phone] | | | | | | | | +--------+ + + + + documented as of this encounter Visit Diagnoses Not on filedocumented in this encounter"
--- OUTSIDE RECORDS SUMMARY | ~2020-02-18 | XMS | Encounter Summary ---
Demographics + + + | Address | [address] | | | [place] [address] | + + + | Home Phone [...] Team Providers + +------+ + | Care Vessel Scrapper Name | Role | Phone | + [...] | [address] | | | | | [address] | | | | | | [phone] | | | +--------+ + + + [...] | | | | | [place], [place] [address] | | | | | | [phone] | | | | | | | | | | | | Julia Fisher, | | | | | | PT | | +--------+ + + + + | 02/18/ | Appointment | Rehabilitation | Erika Ernst, | | | 2019 | | | DO [address] [place] | | | | | | [place] [address] | | | | | | [phone] | | | | | | | | | | | | [facility] | | +--------+ + + + + | 02/25/ | Office | Primary Care | Erika Ernst, | | | 2019 | Visit | | DO [address] [place] | | | | | | [place] [address] | | | | | | [phone] | | | | | | | [...] | | | | | [place] [address] | | | | | | [phone] | | | | | | | | +--------+ + + + + | 02/27/ | Appointment | Radiology | Dhara, | | | 2019 | | | WDAINE Ross [address] | | | | | | [facility] [facility] | | | | | | [place] [address] | | | | | | [phone] | | | | | | | | +--------+ + + + + | 03/04/ | Appointment | Rehabilitation | [facility] | | | 2019 | | | | | +--------+ + + + + | 03/09/ | Office | Orthopedic Surgery | Jeffrey Gandhi, | | | 2019 | Visit | | MD [address] [facility] | | | | | | [place] [address] | | | | | | [phone] | | | | | | | [...] [place] | | | | | | [address] | | | | | | [phone] | | | | | | | [...] | | | | | [place] [address] | | | | | | [phone] | | | | | | | | | | | | Azul Yeboah, | | | | | | MD [address] | | | | | | [place] | | | | | | [place] [address] | | | | | | [phone] | | | | | | | [...] | | | | | | [place] [address] | | | | | | [phone] | | | | | | | | +--------+ + + + + documented as of this encounter Visit Diagnoses Not on filedocumented in this encounter"
--- OUTSIDE RECORDS SUMMARY | ~2020-02-18 | XMS | Encounter Summary ---
Demographics + + + | Address | [address] | | | [place] [address] | + + + | Home Phone [...] + +------+ + | Care Casting Machine Operator Automatic Name | Role | Phone | [...] | | | | [place], [place] | [address] | | | | | [address] | [phone] | | | | | [phone] | | | +--------+ + + + [...] | | | | | [place] [address] | | | | | | [phone] | | | | | | | | | | | | Julia Fisher, | | | | | | PT | | +--------+ + + + + | 02/18/ | Appointment | Rehabilitation | Erika Ernst, | | | 2019 | | | DO [address] [place] | | | | | | [place] [address] | | | | | | [phone] | | | | | | | | | | | | Genesis Ayon OT | | +--------+ + + + + | 02/25/ | Office | Primary Care | Erika Ernst, | | | 2019 | Visit | | DO [address] [place] | | | | | | [place] [address] | | | | | | [phone] | | | | | | | [...] | | | | | [place] [address] | | | | | | [phone] | | | | | | | | +--------+ + + + + | 02/27/ | Appointment | Radiology | Dhara, | | | 2019 | | | DWAIEN [address] | | | | | | 4TH [facility], | | | | | | [place] [address] | | | | | | [phone] | | | | | | | [...] | | | | | [place] [address] | | | | | | [phone] | | | | | | | [...] [place] | | | | | | [address] | | | | | | [phone] | | | | | | | [...] | | | | | [place] [address] | | | | | | [phone] | | | | | | | | | | | | Azul Yeboah, | | | | | | MD [address] | | | | | | [place] | | | | | | [place] [address] | | | | | | [phone] | | | | | | | [...] | | | | | | [place] [address] | | | | | | [phone] | | | | | | | [...]
--- OUTSIDE RECORDS SUMMARY | ~2020-02-18 | XMS | Encounter Summary ---
Demographics + + + | Address | [address] | | | [place] [address] | + + + | Home Phone [...] Team Providers + +------+ + | Care Campus Monitor Name | Role | Phone | [...] CLINIC [address] | [place] [address] | (Primary Dx); | | | | [address] [place], | [phone] | Asthma due to | | | | [place] [address] | | environmental | | | | [phone] | | allergies | +--------+---------+ + + [...] daily. 1 Inhaler 11 Cholecalciferol (VITAMIN D3) 67783 units TABS Take 1 tablet by mouth [...] | | | | | [place] [address] | | | | | | [phone] | | | | | | | | | | | | Julia Fisher, | | | | | | PT | | +--------+ + + + + | 02/18/ | Appointment | Rehabilitation | Erika Ernst, | | | 2019 | | | DO [address] | | | | | | [place] [address] | | | | | | [phone] | | | | | | | | | | | | Genesis Ayon OT | | +--------+ + + + + | 02/25/ | Office | Primary Care | Erika Ernst, | | | 2019 | Visit | | DO [address] [place] | | | | | | [place] [address] | | | | | | [phone] | | | | | | | [...] | | | | | [place] [address] | | | | | | [phone] | | | | | | | | +--------+ + + + + | 02/27/ | Appointment | Radiology | Dhara, | | | 2019 | | | [address]WAINE [address] | | | | | | 4TH [facility], | | | | | | [place] [address] | | | | | | [phone] | | | | | | | | +--------+ + + + + | 03/04/ | Appointment | Rehabilitation | Genesis Ayon OT | | | 2019 | | | | | +--------+ + + + + | 03/09/ | Office | Orthopedic Surgery | Jeffrey Gandhi, | | | 2019 | Visit | | MD [address] [facility] | | | | | | [place] [address] | | | | | | [phone] | | | | | | | [...] [place] | | | | | | [address] | | | | | | [phone] | | | | | | | [...] | | | | | [place] [address] | | | | | | [phone] | | | | | | | | | | | | Azul Yeboah, | | | | | | MD [address] | | | | | | [place] | | | | | | [place] [address] | | | | | | [phone] | | | | | | | [...] | | | | | | [place] [address] | | | | | | [phone] | | | | | | | | +--------+ + + + + documented as of this encounter Visit Diagnoses + + | Diagnosis | + + | Acute bronchitis, unspecified organism - Primary | + + | Asthma due to environmental allergies | + + documented in this encounter
--- OUTSIDE RECORDS SUMMARY | ~2020-02-18 | XMS | Encounter Summary ---
Demographics + + + | Address | [address] | | | [place] [address] | + + + | Home Phone [...] Providers + +------+ + | Care Facility Engineer Name | Role | Phone | + +------+ + | Erika Ernst DO | PCP | | + +------+ + Reason for Visit +--------+ + | Reason | Comments | +--------+ + | Other | Pt request call back today re: suture site on neck came open | +--------+ + Encounter Details +--------+ + + + + | Date | Type | Department | Care Team | Description | +--------+ + + + + | 12/04/ | Telephone | [place] [facility] | Erika Ernst, | Other (Pt request | | 2020 | | [facility] | DO [address] | call back today re: | | | | [facility] | [facility] [address] | suture site on neck | | | | [address] [facility], | [phone] | came open) | | | | [place] [address] | | | | | | [phone] | | | +--------+ + + + [...] | | | | | [place] [address] | | | | | | [phone] | | | | | | | | | | | | Julia Fisher, | | | | | | PT | | +--------+ + + + + | 02/18/ | Appointment | Rehabilitation | Erika Ernst, | | | 2019 | | | DO [address] [place] | | | | | | [place] [address] | | | | | | [phone] | | | | | | | | | | | | Genesis Ayon, OT | | +--------+ + + + + | 02/25/ | Office | Primary Care | Erika Ernst, | | | 2019 | Visit | | DO [address] [place] | | | | | | [place] [address] | | | | | | [phone] | | | | | | | [...] | | | | | [place] [address] | | | | | | [phone] | | | | | | | | +--------+ + + + + | 02/27/ | Appointment | Radiology | Dhara, | | | 2019 | | | DWAINE Ross [address] | | | | | | [address] [place], | | | | | | [place] [address] | | | | | | [phone] | | | | | | | | +--------+ + + + + | 03/04/ | Appointment | Rehabilitation | Genesis Ayon OT | | | 2019 | | | | | +--------+ + + + + | 03/09/ | Office | Orthopedic Surgery | Jeffrey Gandhi, | | | 2019 | Visit | | [place] [address] [facility] | | | | | | [place] [address] | | | | | | [phone] | | | | | | | [...] [place] | | | | | | [address] | | | | | | [phone] | | | | | | | [...] | | | | | [place] [address] | | | | | | [phone] | | | | | | | | | | | | Azul Yeboah, | | | | | | MD [address] | | | | | | [place] | | | | | | [place] [address] | | | | | | [phone] | | | | | | | [...] | | | | | | [place] [address] | | | | | | [phone] | | | | | | | | +--------+ + + + + documented as of this encounter Visit Diagnoses Not on filedocumented in this encounter"
--- OUTSIDE RECORDS SUMMARY | ~2020-02-18 | XMS | Encounter Summary ---
Demographics + + + | Address | [address] | | | [place] [address] | + + + | Home Phone [...] Team Providers + +------+ + | Care Electrical Unit Rebuilder Name | Role | Phone | + [...] | [facility] | [place] [address] | | | | | [address] [place], | [phone] | | | | | [place] [address] | | | | | | [phone] | | | +--------+ + + + [...] | | | | | [place] [address] | | | | | | [phone] | | | | | | | | | | | | Julia Fisher, | | | | | | PT | | +--------+ + + + + | 02/18/ | Appointment | Rehabilitation | Erika Ernst, | | | 2019 | | | DO [address] | | | | | | [place] [address] | | | | | | [phone] | | | | | | | | | | | | Genesis Ayon OT | | +--------+ + + + + | 02/25/ | Office | Primary Care | Erika Ernst, | | | 2019 | Visit | | DO [address] | | | | | | [place] [address] | | | | | | [phone] | | | | | | | [...] | | | | | | [place] [address] | | | | | | [phone] | | | | | | | | +--------+ + + + + | 02/27/ | Appointment | Radiology | Dhara, | | | 2019 | | | DWAINE [address] | | | | | | 4TH [facility], | | | | | | [place] [address] | | | | | | [phone] | | | | | | | [...] | | | | [place] [address] | | | | | | [phone] | | | | | | | [...] [place] | | | | | | [address] | | | | | | [phone] | | | | | | | [...] | | | | | [place] [address] | | | | | | [phone] | | | | | | | | | | | | Azul Yeboah, | | | | | | [address] | | | | | | [place] | | | | | | [place] [address] | | | | | | [phone] | | | | | | | [...] | | | | | | [place] [address] | | | | | | [phone] | | | | | | | | +--------+ + + + + documented as of this encounter Visit Diagnoses Not on filedocumented in this encounter"
--- OUTSIDE RECORDS SUMMARY | ~2020-02-18 | XMS | Encounter Summary ---
Demographics + + + | Address | [address] | | | [place] [address] | + + + | Home Phone [...] Team Providers + +------+ + | Care Bowling Ball Assembler Name | Role | Phone | + +------+ + | Erika Ernst DO | PCP | | + +------+ + Encounter Details +--------+ + + + + | Date | Type | Department | Care Team | Description | +--------+ + + + + | 10/28/ | [facility] [place] [facility] | Carlos Roberts, | Acute pain of right | | 2020 | Encounter | HOSPITAL XRAY 900 | LIQUEFACTION PLANT OPERATOR [address] | knee | | | | [address] [place] | [place] [address] | | | | | [place], [place] | [phone] | | | | | [address] | | | | | | [phone] | | | +--------+ + + + [...] | | | | | [place] [address] | | | | | | [phone] | | | | | | | | | | | | Julia Fisher, | | | | | | PT | | +--------+ + + + + | 02/18/ | Appointment | Rehabilitation | Erika Ernst, | | | 2019 | | | DO [address] [place] | | | | | | [place] [address] | | | | | | [phone] | | | | | | | | | | | | Genesis Ayon, OT | | +--------+ + + + + | 02/25/ | Office | Primary Care | Erika Ernst, | | | 2019 | Visit | | DO [address] [place] | | | | | | [place] [address] | | | | | | [phone] | | | | | | | [...] | | | | | [place] [address] | | | | | | [phone] | | | | | | | | +--------+ + + + + | 02/27/ | Appointment | Radiology | Dhara, | | | 2019 | | | [address]WAINE [address] | | | | | | [address] [place], | | | | | | [place] [address] | | | | | | [phone] | | | | | | | [...] [place] | | | | | | [place] [address] | | | | | | [phone] | | | | | | | [...] [place] | | | | | | [address] | | | | | | [phone] | | | | | | | [...] | | | | | [place] [address] | | | | | | [phone] | | | | | | | | | | | | Azul Yeboah, | | | | | | MD [address] | | | | | | [place] | | | | | | [place] [address] | | | | | | [phone] | | | | | | | [...] | | | | | | [place] [address] | | | | | | [phone] | | | | | | | [...]
--- OUTSIDE RECORDS SUMMARY | ~2020-02-18 | XMS | Encounter Summary ---
Demographics + + + | Address | [address] | | | [place] [address] | + + + | Home Phone [...] Team Providers + +------+ + | Care Sewing Machine Mechanic Name | Role | Phone [...] | pain Status | [place] [address] | | | | | post right | [address] | [place], [place] | | | | | foot surgery | [place] | [address] | | | | | Swelling | [place], [place] | Phone: | | | | | of foot | [address] | [phone] | | | | | joint, right | | Fax: | | | | | Procedures | | [phone] | | | | | MRI Foot [...] Closed | | Radiology | Diagnoses | Germaine, | Cc Wgr Xray | | | | | Right foot | Herbert L, | [address] | | | | | pain Status | [place] [address] | [address] [place] | | | | | post right | [address] | [place], [place] | | | | | foot surgery | [place] | [address] | | | | | Swelling | [place], [place] | Phone: | | | | | of foot | [address] | [phone] | | | | | joint, right | | Fax: | | | | | Procedures | | [phone] | | | | | MRI Foot | | | | | | | Right wo | | | | | | | Contrast | | | +--------+--------+ + + + + Encounter Details +--------+ + + + + | Date | Type | Department | Care Team | Description | +--------+ + + + + | 09/20/ | Hospital | [place] [facility] | Herbert Herron | Right foot pain; | | 2019 | Encounter | Hospital MRI 900 | [place], [place] | Status post right | | | | [place] | | foot surgery; | | | | [place] | | Swelling of foot | | | | [address] | | joint, right | | | | [phone] | | | +--------+ + + + [...] 2 puffs by | | 1 | // | | | MCG/ACT inhaler | mouth [...] | | | | | [place] [address] | | | | | | [phone] | | | | | | | | | | | | Julia Fisher, | | | | | | PT | | +--------+ + + + + | 02/18/ | Appointment | Rehabilitation | Erika Ernst, | | | 2019 | | | DO [address] | | | | | | [place] [address] | | | | | | [phone] | | | | | | | | | | | | Genesis Ayon, OT | | +--------+ + + + + | 02/25/ | Office | Primary Care | Erika Ernst, | | | 2019 | Visit | | DO [address] [place] | | | | | | [place] [address] | | | | | | [phone] | | | | | | | [...] | | | | | [place] [address] | | | | | | [phone] | | | | | | | | +--------+ + + + + | 02/27/ | Appointment | Radiology | Dhara, | | | 2019 | | | [address] | | | | | | 4TH [facility], | | | | | | [place] [address] | | | | | | [phone] | | | | | | | [...] [place] | | | | | | [place] [address] | | | | | | [phone] | | | | | | | [...] [place] | | | | | | [address] | | | | | | [phone] | | | | | | | [...] | | | | | [place] [address] | | | | | | [phone] | | | | | | | | | | | | Azul Yeboah, | | | | | | MD [address] | | | | | | [place] | | | | | | [place] [address] | | | | | | [phone] | | | | | | | | +--------+ + + + + | 04/08/ | Appointment | Nutrition | Janel Webster | | | 2019 | | | [place], [place]A | | +--------+ + + + + | 05/21/ | Office | Neurology | Dhara, | | | 2019 | Visit | | Cody, VIDEO JOURNALIST [address] | | | | | | 4TH [facility] [place], | | | | | | [place] [address] | | | | | | [phone] | | | | | | | | +--------+ + + + + documented as of this encounter Procedures + +--------+ + + + | Procedure Name | Priori | Date/Time | Associated Diagnosis | Comments | | | ty | | | | + +--------+ + + + | MRI FOOT RIGHT WO | Routin | 09/20/2019 | Right foot pain | Results for this | | CONTRAST | e | 5:53 PM | Status post right | procedure are in the | | | | PST | foot surgery | results section. | | | | | Swelling of foot | | | | | | joint, right | | + +--------+ + + + documented in this encounter Results MRI Foot Right wo Contrast (09/20/2019 5:53 PM PST) + + | Specimen | + + | | + + + + + | Impressions | Performed At | + + + | 1. Evidence of prior surgery at the medial navicula. Note from | [facility] | | Jeffrey Gandhi MD, [facility], 09/19/19 describes | | | history of Kidner procedure performed [facility] 2015. The findings on | | | the [...] medial navicula. Note from Jeffrey Gandhi MD, [facility], 09/19/19 | | describes history of Kidner procedure performed [facility]2015. The findings on the current | | [...] medial navicula. Note from Jeffrey Gandhi MD, [facility], 09/19/19 describes history of Kidner procedure performed [facility] 2016. The findings on the current study are [...]
--- OUTSIDE RECORDS SUMMARY | ~2020-02-18 | XMS | Encounter Summary ---
Demographics + + + | Address | [address] | | | [place] [address] | + + + | Home Phone [...] Providers + +------+ + | Care Facility Maintenance Worker Name | Role | Phone [...] | [facility] [address] | [place] [address] | (Primary Dx); Iron | | | | [address] [place], | [phone] | deficiency; Asthma | | | | [place] [address] | | due to environmental | | | | [phone] | | allergies; Dysuria; | | | [...] | | | | | [place] [address] | | | | | | [phone] | | | | | | | | | | | | Julia Fisher, | | | | | | PT | | +--------+ + + + + | 02/18/ | Appointment | Rehabilitation | Erika Ernst, | 2019 | | | DO [address] [place] | | | | | | [place] [address] | | | | | | [phone] | | | | | | | | | | | | Genesis Ayon OT | | +--------+ + + + + | 02/25/ | Office | Primary Care | Erika Ernst, | | | 2019 | Visit | | DO [address] [place] [address] | | | | | | [place] [address] | | | | | | [phone] | | | | | | | [...] | | | | | [place] [address] | | | | | | [phone] | | | | | | | | +--------+ + + + + | 02/27/ | Appointment | Radiology | Dhara, | | | 2019 | | | DWAINE Ross [address] | | | | | | [address] [place], | | | | | | [place] [address] | | | | | | [phone] | | | | | | | | +--------+ + + + + | 03/04/ | Appointment | Rehabilitation | Genesis Ayon OT | | | 2019 | | | | | +--------+ + + + + | 03/09/ | Office | Orthopedic Surgery | Jeffrey Gandhi, | | | 2019 | Visit | | [address] | | | | | | [place] [address] | | | | | | [phone] | | | | | | | [...] [place] | | | | | | [address] | | | | | | [phone] | | | | | | | [...] | | | | | [place] [address] | | | | | | [phone] | | | | | | | | | | | | Azul Yeboah, | | | | | | MD [address] | | | | | | [place] | | | | | | [place] [address] | | | | | | [phone] | | | | | | | [...] | | | | | | [place] [address] | | | | | | [phone] | | | | | | | [...] + + | [place] [facility] | [address] | [place] | [phone] | | HOSPITAL LAB[facility]ORY | | [address] | | + + + + + [...] + + | [place] [facility] | [address] | [place] | [phone] | | HOSPITAL LAB[facility]ATORY | | [address] | | + + + + + [...] + + | [place] [facility] | [address] | [place] | [phone] | | [facility] | | [address] | | | [facility] | | | | [...] - 1.030 | [place] | | | [place], | | | [facility] | | | [...] + + | [place] [facility] | [address] | [place] | [phone] | | HOSPITAL LABORATORY | | [address] | | + + + + + [...] | mL/min/1.73m2 | [facility] | | | [facility] | RATE,ESTIMATED | | HOSPITAL | | | | mL/min/1.34m9Ptnz than | | LABORATORY | | | [...] + + | [place] [facility] | [address] | [place] | [phone] | | HOSPITAL LABORATORY | | [address] | | + + + + + [...] + + | [place] [facility] | [address] | [place] | [phone] | | HOSPITAL LABORATORY | | [address] | | + + + + + [...] [email or web address] | | | | | | [email or web address]/[email or web address] | | | | | | 02(This [...] | | | | | | code 77518) is | | | | | | [...] [email or web address]://education.que | | | | | | [email or web address]/FA | | | | | | Q22v1 Test(s) performed | | | | | | at: [facility] | | | | | | [facility] | | | | | | [place], | | | | | | [place], S Iron Worker | | | | | | [address] [facility] | | | | | | [facility] | | | | | | [place] [address] | | | | | | CLIA #[id number] | | | | + + + + + + + + | Specimen | + + | Blood | + + + + + + + | Performing | Address | City/State/Zipcode | Phone Number | | Organization | | | | + + + + + | REFERENCE LAB | [address] [facility] | [place], [place] | | | [facility] - | | [address] | | | JESSICA STEEN | | [...]
--- OUTSIDE RECORDS SUMMARY | ~2020-02-18 | XMS | Encounter Summary ---
Demographics + + + | Address | [address] | | | [place] [address] | + + + | Home Phone [...] Team Providers + +------+ + | Care Bailing Machine Operator Name | Role | Phone | + +------+ + | Erika Ernst DO | PCP | | + +------+ + Reason for Visit +--------+ + | Reason | Comments | +--------+ + | Other | R kneeankle pain. x 1 day. | +--------+ + Encounter Details +--------+---------+ + + + | Date | Type | Department | Care Team | Description | +--------+---------+ + + + | 10/27/ | Office | [facility] [facility] | Erika Ernst, | Sprain of right | | 2019 | Visit | [facility] | DO [address] | ankle, unspecified | | | | [facility] [address] | [place] [address] | ligament, initial | | | | [address] [place], | [phone] | encounter (Primary | | | | [place] [address] | | Dx); Contusion of | | | | [phone] | Camille Bush, DWAINE | right knee, initial | | | | | [address] | encounter | | | | | [place] [address] | | | | | | [phone] | | | | | | | [...] + + + | Blood Pressure | 118/78 | 10/27/2018 5:41 PM | | | | | PST | | + + + + + | Pulse | 87 | 10/27/2018 5:41 PM | | | | | PST | | + + + + + | Temperature | 36 C (96.8 F) | 10/27/2018 5:41 PM | | | | | PST | | + + + + + | Respiratory Rate | 21 | 10/27/2018 5:41 PM | | | | | PST | | + + + + + | Oxygen Saturation | 97% | 10/27/2018 5:41 PM | | | | | [...] Instructions Patient Instructions Camille Bush FNP - 10/27/2018 5:46 PM PSTFormatting of this note m ight be different from the original. Understanding Bone Bruise (Bone Contusion) A bone bruise is an injury to a bone that is less severe than a bone fracture. Bone bruises are fairly common. They can happen to people of all ages. Any type of bone in your body can be bruised. Other injuries often happen along with a bone bruise, such as damage to nearby ligaments. What happens when a bone is bruised? Bone is made of different kinds of tissue. The periosteum is a thin layer of tissue that co vers most of a bone. Where bones come together, there is usually a layer of cartilage at the edges. The bone here is called subchondral bone. Deep inside the bone is an area called the medulla. It contains the bone marrow and fibrous tissue called trabeculae. With a bone fracture, all of the trabeculae in a region of bone have broken. But with a bon e bruise, an injury only damages some of these trabeculae. An injury might cause blood to bu ild up in the area beneath the periosteum. This causes a subperiosteal hematoma, a type of b one bruise. An injury might also cause bleeding and swelling in the area between your cartil age and the bone beneath it. This causes a subchondral bone bruise. Or bleeding and swelling can occur in the medulla of your bone. This is called an intraosseous bone bruise. What causes a bone bruise? Injury of any kind can cause a bone bruise. Sports injuries, motor vehicle accidents, or fa lls from a height can cause them. Twisting injuries that cause joint sprains can also cause a bone bruise. Health conditions like arthritis may also lead to a bone bruise. This is gertrude use arthritis causes bone surfaces to grind against each other. Child abuse is another cause of bone bruises. Symptoms of a bone bruise Symptoms of a bone bruise can include: Pain and soreness in the injured area Swelling in the area and soft tissues around it Change in color of the injured area Swelling or stiffness of an injured joint This pain is often more severe and lasts longer than a soft tissue injury. How severe your symptoms are and how long they last depends on how severe the bone bruise is. Diagnosing a bone bruise Your healthcare provider will ask you about your medical history and symptoms. He or she wi ll ask how you got your injury. Your provider will examine the injured area to check for leena n, bruising, and swelling. After the exam, your health care provider may be able to tell if you have a bone bruise. A bone bruise doesn t show up on an X-ray. But you may be given an X-ray to rule out a coco ne fracture. A fracture may need a different kind of treatment. An MRI can confirm a bone br uise. But your healthcare provider will likely only give you an MRI if your symptoms don t get better. Date Last Reviewed: 12/31/201619990125-4995 The [employer]. [address] [place] [address], [place] [address]. All [facility] ts reserved. This information is not intended as a substitute for professional medical care. Always follow your healthcare professional's instructions. Understanding Ankle Sprain The ankle is the joint where the leg and foot meet. Bones are held in place by connective t issue called ligaments. When ankle ligaments are stretched to the point of pain and injury, it is called an ankle sprain. A sprain can tear the ligaments. These tears can be very small but still cause pain. Ankle sprains can be mild or severe. What causes an ankle sprain? A sprain may occur when you twist your ankle or bend it too far. This can happen when you s tumble or fall. Things that can make an ankle sprain more likely include: Having had an ankle sprain before Playing sports that involve running and jumping. Or playing contact sports such as footb all or hockey. Wearing shoes that don t support your feet and ankles well Having ankles with poor strength and flexibility Symptoms of an ankle sprain Symptoms may include: Pain or soreness in the ankle Swelling Redness or bruising Not being able to walk or put weight on the affected foot Reduced range of motion in the ankle A popping or tearing feeling at the time the sprain occurs An abnormal or dislocated look to the ankle Instability or too much range of motion in the ankle Treatment for an ankle sprain Treatment focuses on reducing pain and swelling, and avoiding further injury. Treatments ma y include: Resting the ankle. Avoid putting weight on it. This may mean using crutches until the sp rain heals. Prescription or jkth-kfr-yqboqlp pain medicines. These help reduce swelling and pain. Cold packs. These help reduce pain and swelling. Raising your ankle above your heart. This helps reduce swelling. Wrapping the ankle with an elastic bandage or ankle brace. This helps reduce swelling an d gives some support to the ankle. In rare cases, you may need a cast or boot. Stretching and other exercises. These improve flexibility and strength. Heat packs. These may be recommended before doing ankle exercises. Possible complications of an ankle sprain An ankle that has been weakened by a sprain can be more likely to have repeated sprains aft erward. Doing exercises to strengthen your ankle and improve balance can reduce your risk fo r repeated sprains. Other possible complications are long-term (chronic) pain or an ankle th at remains unstable. When to call your healthcare provider Call your healthcare provider right away if you have any of these: Fever of 100.4F (38C) or higher, or as directed Pain, numbness, discoloration, or coldness in the foot or toes Pain that gets worse Symptoms that don t get better, or get worse New symptoms Date Last Reviewed: 12/10/201519996309-2635 The [employer]. [address] [place] [address], [place] [address]. All righ ts reserved. This information is not intended as a substitute for professional medical care. Always follow your healthcare professional's instructions. documented in this encounter Progress Notes Camille Bush FNP - 10/27/2018 5:50 PM PSTCalled patient and let her know that her knee x-ray was negative. Continue symptomatic treatment and f/u in the next two weeks with your p kaylyn. Sin Bush NP ieldCamille alvarez FNP - 10/27/2018 5:50 PM PSTFormatting of this note might be different from the caroline clemens. Subjective: Patient ID: Andrea Suh is a 28 y.o. female. Chief Complaint: right knee pain and right ankle pain for one day HPI She presents with having falling last night at 10pm at [facility] floor where she slipped an d landed on her right knee and right ankle with now right knee and ankle pain since last nig ht. Pain is now 3/10 on the pain scale and described as sharp pain with bending right knee and popping of the right knee. No buckling or locking. No numbness or tingling. No history of surgery on her right knee. She has had surgery on her right ankle in 2016 ( [facility] janaener surgery) She is currently in a workman's comp claim for the left ankle the past six months. She has been going to PT for her right ankle and she is still having pain of the left inner ankle an d her doctor ordered an MRI of this left ankle that she is going to get this upcoming week. Past Medical History: Diagnosis Date Allergic rhinitis Anemia Asthma Dysmenorrhea Hypertension Hypothyroid Iron deficiency Obesity ALVAREZ (obstructive sleep apnea) TMJ pain dysfunction syndrome Review of Systems Constitutional: Negative for chills and fever. Allergies Allergen Reactions Escitalopram Palpitations Latex Rash Hydrocodone Hives Oxycodone Uncoded Nonscreenable Allergen Other (See Comments) Other reaction(s): Proclivity to C-diff with certain antibiotics Adhesive & Tape Rash Patient Active Problem List Diagnosis Date Noted POA Chronic pain of both ears 10/09/2018 Unknown Chronic congestion of paranasal sinus 10/09/2018 Unknown Insomnia due to other mental disorder 10/09/2018 Unknown Sprain of left ankle, subsequent encounter 08/07/2018 Unknown Radial styloid tenosynovitis 08/07/2018 Unknown Right [...] tablet by mouth Daily. 30 tablet 11 [] amoxicillin (AMOXIL) 500 MG capsule Take 1 [...] on file prior to visit. Objective: Vitals: 10/27/18 1741 BP: 118/78 Pulse: 87 Resp: 21 Temp: 36 C (96.8 F) PainSc: 3 Physical Exam Musculoskeletal: Right hip: She exhibits normal range of motion and normal strength. Right ankle: She exhibits swelling. She exhibits normal range of motion, no ecchymosis , no deformity, no laceration and normal pulse. Tenderness. No lateral malleolus, no medial malleolus, no AITFL, no CF ligament, no posterior TFL, no head of 5th metatarsal and no prox imal fibula tenderness found. Achilles tendon exhibits no pain, no defect and normal Thompso n's test results. Right knee examination: Knee cap tenderness and lateral collateral ligament tenderness to palpation. Negative valgus and varus Negative posterior and anterior drawer test Negative Chris's Test All knee ligaments intact No knee cap pain or movement with pressure. Lower leg strength 4/4. Right Ankle Examination Anterior ankle tenderness and mild swelling to palpation. No point tenderness. Negative Squeeze test: (compression of fibula against tibia at mid calf indicates syndesmot ic sprain) Negative external rotation test Negative anterior drawer test Negative Talar tilt test (The talar tilt test detects excessive ankle inversion) Neurological: She displays no atrophy and no tremor. No sensory deficit. She exhibits ricardo l muscle tone. She displays no seizure activity. Gait abnormal. Coordination normal. Mild limp favoring the right side. Skin: Skin is warm and dry. No rash noted. No results found for this or any previous visit (from the past 24 hour(s)). XR KNEE RIGHT 3 VW Assessment: 1. Sprain of right ankle, unspecified ligament, initial encounter - Elastic Bandages & Supports (ANKLE BRACE TUXPIT-ZG-[id number]) MISC; 1 Units by Does not apply r oute Daily. Dispense: 1 each; Refill: 0 2. Contusion of right knee, initial encounter - XR Knee Right 3 Vw - Elastic Bandages & Supports (KNEE BRACE/HINGED BARS 3XL) MISC; 1 Units by Does not apply route Daily. Dispense: 1 each; Refill: 0 Plan: Rest Ice to site every 3 to 4 hours for 15 to 20 minutes the first three hours then alternate ic e or heat. Compress Elevate extremity OTC 400mg to 600mg Ibuprofen every 4 to 6 hours as needed for pain. Massage Declined crutches or boot at this time. Return in about 2 weeks (around 11/10/2018) for If no improvemnet or sooner if acutely worsen ing., With your PCP. CAITIE [email or web address] [facility] documented in this en counter Plan of Treatment +--------+ + + + + | Date | Type | Specialty | Care Team | Description | +--------+ + + + + | 02/18/ | Appointment | Rehabilitation | Erika Ernst, | | | 2019 | | | DO [address] | | | | | | [place] [address] | | | | | | [phone] | | | | | | | | | | | | Julia Fisher, | | | | | | PT | | +--------+ + + + + | 02/18/ | Appointment | Rehabilitation | Erika Ernst, | | | 2019 | | | DO [address] | | | | | | [place] [address] | | | | | | [phone] | | | | | | | | | | | | [facility] | | +--------+ + + + + | 02/25/ | Office | Primary Care | Erika Ernst, | | | 2019 | Visit | | DO [address] | | | | | | [place] [address] | | | | | | [phone] | | | | | | | [...] | | | | | [place] [address] | | | | | | [phone] | | | | | | | | +--------+ + + + + | 02/27/ | Appointment | Radiology | Dhara, | | | 2019 | | | DWAINE Ross [address] | | | | | | [address] [facility], | | | | | | [place] [address] | | | | | | [phone] | | | | | | | [...] | | | | | [place] [address] | | | | | | [phone] | | | | | | | [...] [place] | | | | | | [address] | | | | | | [phone] | | | | | | | [...] | | | | | [place] [address] | | | | | | [phone] | | | | | | | | | | | | Azul Yeboah, | | | | | | MD [address] | | | | | | [place] | | | | | | [place] [address] | | | | | | [phone] | | | | | | | [...] | | | | | | [place] [address] | | | | | | [phone] | | | | | | | [...] Procedure Note | + -------+ | Mitchel, Yoni Results In - 10/27/2018 6:59 PM PST [...] | + + | Sprain of right ankle, unspecified ligament, initial encounter - Primary | + + | Contusion of right knee, initial encounter | + + documented in this encounter"
--- OUTSIDE RECORDS SUMMARY | ~2020-02-18 | XMS | Encounter Summary ---
Demographics + + + | Address | [address] | | | [place] [address] | + + + | Home Phone [...] Providers + +------+ + | Care Dental Laboratory Technician Apprentice Name | Role | Phone | [...] | | | 2018 | Support | [facility] | DO [address] | | | | | [facility] [address] | [place] [address] | | | | [address] [place], | [phone] | | | | | [place] [address] | | | | | | [phone] | | | +--------+ + + + [...] occupational therapy with Ni [facility] at [facility] and has only regained 50% of her strength back. Please advise. I told pt we would give her a call back after we discussed with Dr. Ernst. Thanks [facility] (Can OT manage workman comp [...] | | | | | [place] [address] | | | | | | [phone] | | | | | | | | | | | | Julia Fisher, | | | | | | PT | | +--------+ + + + + | 02/18/ | Appointment | Rehabilitation | Erika Ernst, | | | 2019 | | | DO [address] | | | | | | [place] [address] | | | | | | [phone] | | | | | | | | | | | | [facility] | | +--------+ + + + + | 02/25/ | Office | Primary Care | Erika Ernst, | | | 2019 | Visit | | DO [address] | | | | | | [place] [address] | | | | | | [phone] | | | | | | | [...] | | | | | [place] [address] | | | | | | [phone] | | | | | | | | +--------+ + + + + | 02/27/ | Appointment | Radiology | Dhara, | | | 2019 | | | DWAINE Ross [address] [place], | | | | | | [place] [address] | | | | | | [phone] | | | | | | | | +--------+ + + + + | 03/04/ | Appointment | Rehabilitation | [facility] | | | 2019 | | | | | +--------+ + + + + | 03/09/ | Office | Orthopedic Surgery | Jeffrey Gandhi, | | | 2019 | Visit | | [place] [address] | | | | | | [place] [address] | | | | | | [phone] | | | | | | | [...] [place] | | | | | | [address] | | | | | | [phone] | | | | | | | [...] | | | | | [place] [address] | | | | | | [phone] | | | | | | | | | | | | Azul Yeboah, | | | | | | MD [address] | | | | | | [place] | | | | | | [place] [address] | | | | | | [phone] | | | | | | | [...] | | | | | | [place] [address] | | | | | | [phone] | | | | | | | | +--------+ + + + + documented as of this encounter Visit Diagnoses Not on filedocumented in this encounter
--- OUTSIDE RECORDS SUMMARY | ~2020-02-18 | XMS | Encounter Summary ---
Demographics + + + | Address | [address] | | | [place] [address] | + + + | Home Phone [...] Providers + +------+ + | Care Web Marketing Analyst Name | Role | Phone [...] | +--------+ + + + + | 01/06/ | Telephone | [place] [facility] | Emily Avery | Advice Only | | 2020 | | [facility] | DO [address] | | | | | [address] | [address] | | | | | [address] [place], | [place], [place] | | | | | [place] [address] | [address] | | | | | [phone] | [phone] | | | | | | | [...] 2019 | | | DO [facility] | | | | | | [place] [address] | | | | | | [phone] | | | | | | | | | | | | Julia Fisher, | | | | | | PT | | +--------+ + + + + | 02/18/ | Appointment | Rehabilitation | Erika Ernst, | | | 2019 | | | DO [address] | | | | | | [place] [address] | | | | | | [phone] | | | | | | | | | | | | [facility] | | +--------+ + + + + | 02/25/ | Office | Primary Care | Erika Ernst, | | | 2019 | Visit | | DO [address] | | | | | | [place] [address] | | | | | | [phone] | | | | | | | [...] | | | | | [place] [address] | | | | | | [phone] | | | | | | | | +--------+ + + + + | 02/27/ | Appointment | Radiology | Dhara, | | | 2019 | | | DWAINE Ross [address] | | | | | | [address] [facility], | | | | | | [place] [address] | | | | | | [phone] | | | | | | | | +--------+ + + + + | 03/04/ | Appointment | Rehabilitation | [facility] | | | 2019 | | | | | +--------+ + + + + | 03/09/ | Office | Orthopedic Surgery | Jeffrey Gandhi, | | | 2019 | Visit | | [address] | | | | | | [place] [address] | | | | | | [phone] | | | | | | | [...] [place] | | | | | | [address] | | | | | | [phone] | | | | | | | [...] | | | | | [place] [address] | | | | | | [phone] | | | | | | | | | | | | Azul Yeboah, | | | | | | MD [address] | | | | | | [place] | | | | | | [place] [address] | | | | | | [phone] | | | | | | | [...] | | | | | | [place] [address] | | | | | | [phone] | | | | | | | | +--------+ + + + + documented as of this encounter Visit Diagnoses Not on filedocumented in this encounter"
--- OUTSIDE RECORDS SUMMARY | ~2020-02-18 | XMS | Encounter Summary ---
Demographics + + + | Address | [address] | | | [place] [address] | + + + | Home Phone [...] Team Providers + +------+ + | Care All Source Intelligence Analyst Name | Role | Phone | [...] | [place], [place] | [place] [address] | | | | | [address] | [phone] | | | | | [phone] | | | +--------+ + + + [...] | | | | | [place] [address] | | | | | | [phone] | | | | | | | | | | | | Julia Fisher, | | | | | | PT | | +--------+ + + + + | 02/18/ | Appointment | Rehabilitation | Erika Ernst, | | | 2019 | | | DO [address] [place] | | | | | | [place] [address] | | | | | | [phone] | | | | | | | | | | | | [facility] | | +--------+ + + + + | 02/25/ | Office | Primary Care | Erika Ernst, | | | 2019 | Visit | | DO [address] | | | | | | [place] [address] | | | | | | [phone] | | | | | | | | +--------+ + + + + | 02/25/ | Appointment | Rehabilitation | [facility] | | | 2019 | | | | | +--------+ + + + + | 02/26/ | Virtual | Rehabilitation | Usha Rdoriguez | | 2019 | Office | | MD Precious [address] | | | | Visit | | [address] [place] | | | | | | [place] [address] | | | | | | [phone] | | | | | | | | +--------+ + + + + | 02/27/ | Appointment | Radiology | Dhara, | | | 2019 | | | DWAINE Ross [address] | | | | | | [address] [facility], | | | | | | [place] [address] | | | | | | [phone] | | | | | | | | +--------+ + + + + | 03/04/ | Appointment | Rehabilitation | [facility] | | | 2019 | | | | | +--------+ + + + + | 03/09/ | Office | Orthopedic Surgery | Jeffrey Gandhi, | | | 2019 | Visit | | [place] [address] [facility] | | | | | | [place] [address] | | | | | | [phone] | | | | | | | [...] [place] | | | | | | [address] | | | | | | [phone] | | | | | | | [...] [address] | | | | | | [phone] | | | | | | | | | | | | Azul Yeboah, | | | | | | MD [address] | | | | | | [place] | | | | | | [place] [address] | | | | | | [phone] | | | | | | | [...] | | | | | | [place] [address] | | | | | | [phone] | | | | | | | | +--------+ + + + + documented as of this encounter Visit Diagnoses Not on filedocumented in this encounter"
--- OUTSIDE RECORDS SUMMARY | ~2020-02-18 | XMS | Encounter Summary ---
Demographics + + + | Address | [address] | | | [place] [address] | + + + | Home Phone [...] Team Providers + +------+ + | Care Mysql Dba Name | Role | Phone | + [...] [address] | | | | | [place] [address] | | | | | | [phone] | | | +--------+ + + + [...] [address] | | | | | | [phone] | | | | | | | | | | | | Julia Fisher, | | | | | | PT | | +--------+ + + + + | 02/18/ | Appointment | Rehabilitation | Erika Ernst, | | | 2019 | | | DO [address] [place] | | | | | | [place] [address] | | | | | | [phone] | | | | | | | | | | | | [facility] | | +--------+ + + + + | 02/25/ | Office | Primary Care | Erika Ernst, | | | 2019 | Visit | | DO [address] [place] | | | | | | [place] [address] | | | | | | [phone] | | | | | | | [...] | | | | | [place] [address] | | | | | | [phone] | | | | | | | | +--------+ + + + + | 02/27/ | Appointment | Radiology | Dhara, | | | 2019 | | | DWAINE Ross [address] | | | | | | [address] [place], | | | | | | [place] [address] | | | | | | [phone] | | | | | | | [...] [place] | | | | | | [place] [address] | | | | | | [phone] | | | | | | | [...] [place] | | | | | | [address] | | | | | | [phone] | | | | | | | [...] | | | | | [place] [address] | | | | | | [phone] | | | | | | | | | | | | Azul Yeboah, | | | | | | MD [address] | | | | | | [place] | | | | | | [place] [address] | | | | | | [phone] | | | | | | | [...] | | | | | | [place] [address] | | | | | | [phone] | | | | | | | | +--------+ + + + + documented as of this encounter Visit Diagnoses Not on filedocumented in this encounter"
--- OUTSIDE RECORDS SUMMARY | ~2020-02-18 | XMS | Encounter Summary ---
Demographics + + + | Address | [address] | | | [place] [address] | + + + | Home Phone [...] Providers + +------+ + | Care Business Banking Officer Name | Role | Phone | [...] | | | [place], [place] | [address] | | | | | [address] | | | | | | [phone] | | | +--------+ + + + [...] | | | | | [place] [address] | | | | | | [phone] | | | | | | | | | | | | Julia Fisher, | | | | | | PT | | +--------+ + + + + | 02/18/ | Appointment | Rehabilitation | Erika Ernst, | | | 2019 | | | DO [address] [place] | | | | | | [place] [address] | | | | | | [phone] | | | | | | | | | | | | [facility] | | +--------+ + + + + | 02/25/ | Office | Primary Care | Erika Ernst, | | | 2019 | Visit | | DO [address] [place] | | | | | | [place] [address] | | | | | | [phone] | | | | | | | [...] | | | | | [place] [address] | | | | | | [phone] | | | | | | | | +--------+ + + + + | 02/27/ | Appointment | Radiology | Dhara, | | | 2019 | | | DWAINE [address] | | | | | | [address] [facility], | | | | | | [place] [address] | | | | | | [phone] | | | | | | | [...] | | | | | [place] [address] | | | | | | [phone] | | | | | | | [...] [place] | | | | | | [address] | | | | | | [phone] | | | | | | | [...] | | | | | [place] [address] | | | | | | [phone] | | | | | | | | | | | | Azul Yeboah, | | | | | | MD [address] | | | | | | [place] | | | | | | [place] [address] | | | | | | [phone] | | | | | | | [...] | | | | | | [place] [address] | | | | | | [phone] | | | | | | | | +--------+ + + + + documented as of this encounter Visit Diagnoses Not on filedocumented in this encounter"
--- OUTSIDE RECORDS SUMMARY | ~2020-02-18 | XMS | Encounter Summary ---
Demographics + + + | Address | [address] | | | [place] [address] | + + + | Home Phone [...] Providers + +------+ + | Care Care Manager Cna Name | Role | Phone | + [...] | | | | encounter | [place] [address] | [place], [place] | | | | | | Phone: | [address] Phone: | | | | | | [phone] | [phone] | | | | | | Fax: | Fax: | | | | | | [phone] | [phone] | + + + + + + + Encounter Details +--------+---------+ + + + | Date | Type | Department | Care Team | Description | +--------+---------+ + + + | 09/19/ | Office | [facility] | Jeffrey Gandhi, | Radial styloid | | 2019 | Visit | [facility] | MD [address] | tenosynovitis (de | | | | MEDICINE CHRIS | [place] [address] | quervain) (Primary | | | | [address] | [phone] | Dx); Right wrist | | | | [place], [place] | | pain | | | | [address] | | | | | | [phone] | | | +--------+---------+ + + + [...] might be different fro m the original. [facility]: Orthopedic Surgery Patient Name:Andrea Suh [...] E.C.U. Tendon; Surgeon: Inocencio Noriega MD; Location: [facility] SURGERY RIGHT KIDNER PROCEDURE 01/20/2016 Surgeon: Fani Mahajan MD; Location: [facility] TENDON RELEASE THYROID FINE NEEDLE ASPIRATION 09/02/2019 Procedure: US GUIDED THYROID FNA - Location: [facility] ULTRASOUND TONSILLECTOMY WISDOM TOOTH EXTRACTION Allergies [...] if needed for dizz iness 05/24/19 Erika aBller, DO montelukast (SINGULAIR) 10 mg tablet take [...] cancer Maternal Grandmother Heart attack Maternal Aunt [place] Hypertension Maternal Uncle Social History Socioeconomic History [...] file Gets together: Not on file Attends mandaen service: Not on file Active member of [...] MD This document has been prepared with [employer] voice recognition system. The possibility of "s ound alike" laundry folder errors, and additions, or deletions may occur. [...] | | | | | [place] [address] | | | | | | [phone] | | | | | | | | | | | | Julia Fisher, | | | | | | PT | | +--------+ + + + + | 02/18/ | Appointment | Rehabilitation | Erika Ernst, | | | 2019 | | | DO [address] | | | | | | [place] [address] | | | | | | [phone] | | | | | | | | | | | | Genesis Ayon OT | | +--------+ + + + + | 02/25/ | Office | Primary Care | Erika Ernst, | | | 2019 | Visit | | DO [address] | | | | | | [place] [address] | | | | | | [phone] | | | | | | | [...] | | | | | [place] [address] | | | | | | [phone] | | | | | | | | +--------+ + + + + | 02/27/ | Appointment | Radiology | Dhara, | | | 2019 | | | [address] | | | | [address] [place], | | | | | | [place] [address] | | | | | | [phone] | | | | | | | [...] [place]ORE | | | | | | [place] [address] | | | | | | [phone] | | | | | | | [...] [place] | | | | | | [address] | | | | | | [phone] | | | | | | | [...] | | | | | [place] [address] | | | | | | [phone] | | | | | | | | | | | | Azul Yeboah, | | | | | | [address] | | | | | | [place] | | | | | | [place] [address] | | | | | | [phone] | | | | | | | [...] | | | | | | [place] [address] | | | | | | [phone] | | | | | | | [...]
--- OUTSIDE RECORDS SUMMARY | ~2020-02-18 | XMS | Encounter Summary ---
Demographics + + + | Address | [address] | | | [place] [address] | + + + | Home Phone [...] Team Providers + +------+ + | Care Entertainment Musician Name | Role | Phone | + [...] | | | | s (de | [place], [place] | [place] [address] | | | | | quervain) | [address] | Phone: | | | | | Pain in | Phone: | [phone] | | | | | right wrist | [phone] | Fax: | | | | | Procedures | Fax: | [phone] | | | | | OT TREAT | [phone] | | +--------+--------+ + + + + Encounter Details +--------+ + + + + | Date | Type | Department | Care Team | Description | +--------+ + + + + | 08/09/ | Hospital | [place] [facility] | Jeffrey Gandhi, | Radial styloid | | 2018 | Encounter | HOSPITAL THERAPY OT | [address] | tenosynovitis; Right | | | | [address] [place] | [place] [address] | wrist pain | | | | [place] | [phone] | | | | | [address] | | | | | | [phone] | Milla Gracia, OT | | +--------+ [...] Gracia OT - 08/10/2018 10:50 AM PST [facility]ERAP[facility] OT [address] [place] [address] Occupational Therapy Daily Treatment Note Date: 08/09/2018 [...] wrist and 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 Electronically signed by: Milla Gracia OT, 08/10/2018 10:51 Patient Name: Andrea Suh/: [...] | | | | | [place] [address] | | | | | | [phone] | | | | | | | | | | | | Julia Fisher, | | | | | | PT | | +--------+ + + + + | 02/18/ | Appointment | Rehabilitation | Erika Ernst, | | | 2019 | | | DO [address] | | | | | | [place] [address] | | | | | | [phone] | | | | | | | | | | | | Genesis Ayon, OT | | +--------+ + + + + | 02/25/ | Office | Primary Care | Erika Ernst, | | | 2019 | Visit | | DO [address] | | | | | | [place] [address] | | | | | | [phone] | | | | | | | [...] | | | | | [place] [address] | | | | | | [phone] | | | | | | | | +--------+ + + + + | 02/27/ | Appointment | Radiology | Dhara, | | | 2019 | | | [address] | | | | | | [address] [place], | | | | | | [place] [address] | | | | | | [phone] | | | | | | | | +--------+ + + + + | 03/04/ | Appointment | Rehabilitation | Genesis Ayon OT | | 2019 | | | | | +--------+ + + + + | 03/09/ | Office | Orthopedic Surgery | Jeffrey Gandhi, | | 2019 | Visit | | [address] | | | | | | [place] [address] | | | | | | [phone] | | | | | | | [...] [place] | | | | | | [address] | | | | | | [phone] | | | | | | | [...] | | | | | [place] [address] | | | | | | [phone] | | | | | | | | | | | | Azul Yeboah, | | | | | | [address] | | | | | | [place] | | | | | | [place] [address] | | | | | | [phone] | | | | | | | [...] | | | | | | [place] [address] | | | | | | [phone] | | | | | | | | +--------+ + + + + documented as of this encounter Visit Diagnoses + + | Diagnosis | + + | Radial styloid tenosynovitis | + + | Right wrist pain Pain in joint, forearm | + + documented in this encounter"
--- OUTSIDE RECORDS SUMMARY | ~2020-02-18 | XMS | Encounter Summary ---
Demographics + + + | Address | [address] | | | [place] [address] | + + + | Home Phone [...] Team Providers + +------+ + | Care Airport Shuttle Driver Name | Role | Phone | [...] | | | [place] | [address] | | | | | [address] | | | | | | [phone] | | | +--------+ + + + [...] 2019 | | | DO [facility] | | | | | | [place] [address] | | | | | | [phone] | | | | | | | | | | | | Julia Fisher, | | | | | | PT | | +--------+ + + + + | 02/18/ | Appointment | Rehabilitation | Erika Ernst, | | | 2019 | | | DO [address] | | | | | | [place] [address] | | | | | | [phone] | | | | | | | | | | | | Genesis Ayon OT | | +--------+ + + + + | 02/25/ | Office | Primary Care | Erika Ernst, | | | 2019 | Visit | | DO [address] [place] | | | | | | [place] [address] | | | | | | [phone] | | | | | | | [...] | | | | | [place] [address] | | | | | | [phone] | | | | | | | | +--------+ + + + + | 02/27/ | Appointment | Radiology | Dhara, | | | 2019 | | | [address]WA[address] Ross [address] | | | | | | [address] [place], | | | | | | [place] [address] | | | | | | [phone] | | | | | | | [...] | | | | | [place] [address] | | | | | | [phone] | | | | | | | [...] [place] | | | | | | [address] | | | | | | [phone] | | | | | | | [...] | | | | | [place] [address] | | | | | | [phone] | | | | | | | | | | | | Azul Yeboah, | | | | | | MD [address] | | | | | | [place] | | | | | | [place] [address] | | | | | | [phone] | | | | | | | [...] | | | | | | [place] [address] | | | | | | [phone] | | | | | | | | +--------+ + + + + documented as of this encounter Visit Diagnoses Not on filedocumented in this encounter"
--- OUTSIDE RECORDS SUMMARY | ~2020-02-18 | XMS | Encounter Summary ---
Demographics + + + | Address | [address] | | | [place] [address] | + + + | Home Phone [...] Team Providers + +------+ + | Care Advance Scout Name | Role | Phone | [...] | Luis Nichole MD | [facility]) | | 2019 | | HOSPITAL NEUROLOGY | [address] [place] | | | | | CLINIC [address] | [place] | | | | | [address] [place], | [address] | | | | | [place] [address] | | | | | | [phone] | | | +--------+ + + + [...] | | | | | [place] [address] | | | | | | [phone] | | | | | | | | | | | | Julia Fisher, | | | | | | PT | | +--------+ + + + + | 02/18/ | Appointment | Rehabilitation | Erika Ernst, | | | 2019 | | | DO [address] | | | | | | [place] [address] | | | | | | [phone] | | | | | | | | | | | | Genesis Ayon, OT | | +--------+ + + + + | 02/25/ | Office | Primary Care | Erika Ernst, | | | 2019 | Visit | | DO [address] | | | | | | [place] [address] | | | | | | [phone] | | | | | | | [...] | | | | | [place] [address] | | | | | | [phone] | | | | | | | | +--------+ + + + + | 02/27/ | Appointment | Radiology | Dhara, | | | 2019 | | | [address] | | | | | | [address] [facility], | | | | | | [place] [address] | | | | | | [phone] | | | | | | | | +--------+ + + + + | 03/04/ | Appointment | Rehabilitation | Genesis Ayon OT | | | 2019 | | | | | +--------+ + + + + | 03/09/ | Office | Orthopedic Surgery | Jeffrey Gandhi, | | 2019 | Visit | | [address] | | | | | | [place] [address] | | | | | | [phone] | | | | | | | [...] [place] | | | | | | [address] | | | | | | [phone] | | | | | | | [...] | | | | | [place] [address] | | | | | | [phone] | | | | | | | | | | | | Azul Yeboah, | | | | | | MD [address] | | | | | | [place] | | | | | | [place] [address] | | | | | | [phone] | | | | | | | [...] | | | | | | [place] [address] | | | | | | [phone] | | | | | | | | +--------+ + + + + documented as of this encounter Visit Diagnoses Not on filedocumented in this encounter"
--- OUTSIDE RECORDS SUMMARY | ~2020-02-18 | XMS | Encounter Summary ---
Demographics + + + | Address | [address] | | | [place] [address] | + + + | Home Phone [...] + +------+ + | Care Lead Network Architect Name | Role | Phone | [...] Leukocytosis, | | 2019 | Visit | [facility] | COMPOSITE WORKER [address] | unspecified type | | | | MEDICAL CLINIC [address] | [place] [address] | (Primary Dx) | | | | [address] [place], | [phone] | | | | | [place] [address] | | | | | | [phone] | | | +--------+---------+ + + + [...] FNP - 02/20/2019 4:00 PM PDTDiscussed previous [facility] visit Will repeat CBC and CMP in [...] - Comprehensive Metabolic Panel; Future Discussed previous [facility] visit Will repeat CBC and CMP in [...] Dr Noriega - after being seen by [facility]. Pt had elevated WBC when evaluated i [facility]. Pt reports she had being experiencing upper respiratory and has history of asthma. Pt reports she has recently completed antibiotics regimen. Pt reports Dr Noriega was planning to do surgery to his R wrist - but has delayed due to elevated WBC. Pt reports she flew in [facility] this morning and also reports she has [...] mouth. Once a week Cholecalciferol (VITAMIN D3) 75921 units TABS Take 1 tablet by mouth [...] | | | | | [place] [address] | | | | | | [phone] | | | | | | | | | | | | Julia Fisher, | | | | | | PT | | +--------+ + + + + | 02/18/ | Appointment | Rehabilitation | Erika Ernst, | | | 2019 | | | DO [address] | | | | | | [place] [address] | | | | | | [phone] | | | | | | | | | | | | Genesis Ayon, OT | | +--------+ + + + + | 02/25/ | Office | Primary Care | Erika Ernst, | | | 2019 | Visit | | DO [address] | | | | | | [place] [address] | | | | | | [phone] | | | | | | | [...] | | | | | [place] [address] | | | | | | [phone] | | | | | | | | +--------+ + + + + | 02/27/ | Appointment | Radiology | Dhara, | | | 2019 | | | [address]WA[address] | | | [address] [place], | | | | | | [place] [address] | | | | | | [phone] | | | | | | | | +--------+ + + + + | 03/04/ | Appointment | Rehabilitation | Genesis Ayon OT | | | 2019 | | | | | +--------+ + + + + | 03/09/ | Office | Orthopedic Surgery | Jeffrey Gandhi, | | | 2019 | Visit | | [address] [facility] | | | | | | [place] [address] | | | | | | [phone] | | | | | | | [...] [place] | | | | | | [address] | | | | | | [phone] | | | | | | | [...] | | | | | [place] [address] | | | | | | [phone] | | | | | | | | | | | | Azul Yeboah, | | | | | | MD [address] | | | | | | [place] | | | | | | [place] [address] | | | | | | [phone] | | | | | | | [...] | | | | | | [place] [address] | | | | | | [phone] | | | | | | | [...] | mL/min/1.73m2 | [facility] | | | [facility] | RATE,ESTIMATED | | [facility] | | | | mL/min/1.01f2Xbxy than | | LABORATORY | | | [...] + + | [place] [facility] | [address] | [place] | [phone] | | HOSPITAL LABORATORY | | [address] | | + + + + + documented in this encounter Visit Diagnoses + + | Diagnosis | + + | Leukocytosis, unspecified type - Primary | + + documented in this encounter
--- OUTSIDE RECORDS SUMMARY | ~2020-02-18 | XMS | Encounter Summary ---
Demographics + + + | Address | [address] | | | [place] [address] | + + + | Home Phone [...] Providers + +------+ + | Care Project Control Officer Name | Role | Phone | [...] Description | +--------+--------+ + + + | 12/05/ | Refill | [place] [facility] | Erika Ernst, | Medication Refill | | 2020 | | [facility] | DO [address] | | | | | MEDICAL CLINIC [address] | [place] [address] | | | | | [address] [place], | [phone] | | | | | [place] [address] | | | | | | [phone] | | | +--------+--------+ + + + [...] | | | | | [place] [address] | | | | | | [phone] | | | | | | | | | | | | Julia Fisher, | | | | | | PT | | +--------+ + + + + | 02/18/ | Appointment | Rehabilitation | Erika Ernst, | | | 2019 | | | DO [address] | | | | | | [place] [address] | | | | | | [phone] | | | | | | | | | | | | Genesis Ayon OT | | +--------+ + + + + | 02/25/ | Office | Primary Care | Erika Ernst, | | | 2019 | Visit | | DO [address] | | | | | | [place] [address] | | | | | | [phone] | | | | | | | [...] | | | | | | [place] [address] | | | | | | [phone] | | | | | | | | +--------+ + + + + | 02/27/ | Appointment | Radiology | Dhara, | | | 2019 | | | [address] | | | | | | [address] [facility], | | | | | | [place] [address] | | | | | | [phone] | | | | | | | [...] [place] | | | | | | [place] [address] | | | | | | [phone] | | | | | | | [...] [place] | | | | | | [address] | | | | | | [phone] | | | | | | | [...] | | | | | [place] [address] | | | | | | [phone] | | | | | | | | | | | | Azul Yeboah, | | | | | | MD [address] | | | | | | [place] | | | | | | [place] [address] | | | | | | [phone] | | | | | | | [...] | | | | | | [place] [address] | | | | | | [phone] | | | | | | | | +--------+ + + + + documented as of this encounter Visit Diagnoses Not on filedocumented in this encounter"
--- OUTSIDE RECORDS SUMMARY | ~2020-02-18 | XMS | Encounter Summary ---
Demographics + + + | Address | [address] | | | [place] [address] | + + + | Home Phone [...] Team Providers + +------+ + | Care Banquet Line Cook Name | Role | Phone | + [...] [address] | [place] [address] | Fatigue, unspecified | | | | [address] [place], | [phone] | type; Acute | | | | [place] [address] | | pharyngitis, | | | | [phone] | | unspecified etiology | +--------+---------+ + [...] | | | | | [place] [address] | | | | | | [phone] | | | | | | | | | | | | Julia Fisher, | | | | | | PT | | +--------+ + + + + | 02/18/ | Appointment | Rehabilitation | Erika Ernst, | | | 2019 | | | DO [address] | | | | | | [place] [address] | | | | | | [phone] | | | | | | | | | | | | Genesis Ayon OT | | +--------+ + + + + | 02/25/ | Office | Primary Care | Erika Ernst, | | | 2019 | Visit | | DO [address] | | | | | | [place] [address] | | | | | | [phone] | | | | | | | [...] | | | | | | [place] [address] | | | | | | [phone] | | | | | | | | +--------+ + + + + | 02/27/ | Appointment | Radiology | Dhara, | | | 2019 | | | [address]WA[address] Ross [address] | | | | | | [address] [place], | | | | | | [place] [address] | | | | | | [phone] | | | | | | | | +--------+ + + + + | 03/04/ | Appointment | Rehabilitation | Genesis Ayon OT | | | 2019 | | | | | +--------+ + + + + | 03/09/ | Office | Orthopedic Surgery | Jeffrey Gandhi, | | | 2019 | Visit | | [place] [address] [facility] [facility] | | | | | | [place] [address] | | | | | | [phone] | | | | | | | [...] [place] | | | | | | [address] | | | | | | [phone] | | | | | | | [...] | | | | | [place] [address] | | | | | | [phone] | | | | | | | | | | | | Azul Yeboah, | | | | | | MD [address] | | | | | | [place] | | | | | | [place] [address] | | | | | | [phone] | | | | | | | | +--------+ + + + + | 04/08/ | Appointment | Nutrition | Janel Webster | | | 2019 | | | [address] | | +--------+ + + + + | 05/21/ | Office | Neurology | Dhara, | | | 2019 | Visit | | [address] | | | | | | [address] [facility], | | | | | | [place] [address] | | | | | | [phone] | | | | | | | | +--------+ + + + + documented as of this encounter Results Mononucleosis Screen (06/11/2019 4:56 PM PDT) + + + + + + | Component | Value | Ref Range | Performed | Pathologist | | | | | At | Signature | + + + + + + | [place]iot Screen | Negative | Negative | [place] [...] + + | [place] [facility] | [address] | [place] | [phone] | | HOSPITAL LABORATORY | | [address] | | + + + + + [...] + + | [place] [facility] | [address] | [place] | [phone] | | [facility] | | [address] | | | [facility] | | | | + + + + + documented in this encounter Visit Diagnoses + + | Diagnosis | + + | Acute sore throat - Primary | + + | Fatigue, unspecified type | + + | Acute pharyngitis, unspecified etiology | + + documented in this encounter
--- OUTSIDE RECORDS SUMMARY | ~2020-02-18 | XMS | Encounter Summary ---
Demographics + + + | Address | [address] | | | [place] [address] | + + + | Home Phone [...] Providers + +------+ + | Care Digital Hardware Design Engineer Name | Role | Phone | + +------+ + PCP | Unavailable | + +------+ + Encounter Details +--------+ + + + + | Date | Type | Department | Care Team | Description | +--------+ + + + + | 05/19/ | [facility] | [facility] | Amaya Varner NP | | | 2016 | Encounter | [facility] | [address] | | | | | MEDICAL CLINIC [address] | [place], [place] | | | | | [address] [place], | [address] | | | | | [place] [address] | [phone] | | | | | [phone] | | | +--------+ + + + [...] 2020 | | | DO [facility] | | | | | | [place], [place] [address] | | | | | | [phone] | | | | | | | | | | | | Julia Fisher, | | | | | | PT | | +--------+ + + + + | 02/18/ | Appointment | Rehabilitation | Erika Ernst, | | | 2019 | | | DO [address] | | | | | | [place] [address] | | | | | | [phone] | | | | | | | | | | | | Genesis Ayon, SUSAN | | +--------+ + + + + | 02/25/ | Office | Primary Care | Erika Ernst, | | | 2019 | Visit | | DO [address] | | | | | | [place] [address] | | | | | | [phone] | | | | | | | [...] | | | | | [place] [address] | | | | | | [phone] | | | | | | | | +--------+ + + + + | 02/27/ | Appointment | Radiology | Dhara, | | | 2019 | | | [address] | | | | | | [address] [facility] [place], | | | | | | [place] [address] | | | | | | [phone] | | | | | | | [...] | | | | | [place] [address] | | | | | | [phone] | | | | | | | [...] [place] | | | | | | [address] | | | | | | [phone] | | | | | | | [...] | | | | | [place] [address] | | | | | | [phone] | | | | | | | | | | | | Azul Yeboah, | | | | | | MD [address] | | | | | | [place] | | | | | | [place] [address] | | | | | | [phone] | | | | | | | [...] | | | | | | [place] [address] | | | | | | [phone] | | | | | | | | +--------+ + + + + documented as of this encounter Visit Diagnoses Not on filedocumented in this encounter"
--- OUTSIDE RECORDS SUMMARY | ~2020-02-18 | XMS | Encounter Summary ---
Demographics + + + | Address | [address] | | | [place] [address] | + + + | Home Phone [...] Team Providers + +------+ + | Care Public Address Technician Name | Role | Phone | [...] | | | [place], [place] | [address] | | | | | [address] | | | | | | [phone] | | | +--------+ + + + [...] | | | | | [place] [address] | | | | | | [phone] | | | | | | | | | | | | Julia Fisher, | | | | | | PT | | +--------+ + + + + | 02/18/ | Appointment | Rehabilitation | Erika Ernst, | | | 2019 | | | DO [address] [place] | | | | | | [place] [address] | | | | | | [phone] | | | | | | | | | | | | Genesis Ayon, SUSAN | | +--------+ + + + + | 02/25/ | Office | Primary Care | Erika Ernst, | | | 2019 | Visit | | DO [address] | | | | | | [place] [address] | | | | | | [phone] | | | | | | | [...] | | | | | [place] [address] | | | | | | [phone] | | | | | | | | +--------+ + + + + | 02/27/ | Appointment | Radiology | Dhara, | | | 2019 | | | [address] | | | | | | [address] [place], | | | | | | [place] [address] | | | | | | [phone] | | | | | | | [...] | | | | | [place] [address] | | | | | | [phone] | | | | | | | [...] [place] | | | | | | [address] | | | | | | [phone] | | | | | | | [...] | | | | | [place] [address] | | | | | | [phone] | | | | | | | | | | | | Azul Yeboah, | | | | | | MD [address] | | | | | | [place] | | | | | | [place] [address] | | | | | | [phone] | | | | | | | [...] | | | | | | [place] [address] | | | | | | [phone] | | | | | | | | +--------+ + + + + documented as of this encounter Visit Diagnoses Not on filedocumented in this encounter"
--- OUTSIDE RECORDS SUMMARY | ~2020-02-18 | XMS | Encounter Summary ---
Demographics + + + | Address | [address] | | | [place] [address] | + + + | Home Phone [...] Team Providers + +------+ + | Care Counter Server Name | Role | Phone | + +------+ + | Erika Ernst DO | PCP | | + +------+ + Reason for Visit + + + | Reason | Comments | + + + | Follow-up | L ankle | + + + Encounter Details +--------+---------+ + + + | Date | Type | Department | Care Team | Description | +--------+---------+ + + + | 04/17/ | Office | [facility] | Emily Mittal DPM | Posterior tibial | | 2019 | Visit | [facility] | [address] [place] | tendon dysfunction | | | | [address] | F [place], [place] | (PTTD) of left lower | | | | [place], [place] | [address] | extremity (Primary | | | | [address] | | Dx); Sprain of | | | | [phone] | | deltoid ligament of | | [...] + | Blood Pressure | 118/78 | 04/17/2019 8:31 AM | | | | | PDT | | + + + + + | Pulse | 74 | 04/17/2019 8:31 AM | | | | | PDT | | + + + + + | Temperature | - | - | | + + + + + | Respiratory Rate | - | - | | + + + + + | Oxygen Saturation | 99% | 04/17/2019 8:31 AM | | | | | PDT | | + + + + + | Inhaled Oxygen | - | - | | | Concentration | | | | + + + + + | Weight | 169.6 kg (374 lb) | 04/17/2019 8:31 AM | | | | | PDT | | + + + + + | Height | 177.8 cm (5' 10") | 04/17/2019 8:31 AM | | | | | PDT | | + + + + + | Body Mass Index | 53.66 | 04/17/2019 8:31 AM | | | | | PDT | | + + + + + documented in this encounter Progress Notes Emily Mittal DPM - 04/17/2019 8:30 AM PDT [facility] Note Patient Name: Andrea Suh | Age: 28 y.o. | : 1990 | Medical Record Number:[id number] | Author: Emily Mittal DPM | Date of Encounter: 12/06/2018 Chief complaint Chief Complaint Patient presents with Follow-up L ankle History of Present Illness Andrea Suh is a 28 y.o. female that presents to my office for continued concern of left ankle pain. She relates that when she was released to resume full duties at work that she had several "flares". 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 She points to the inside of her left foot and ankle as the area of pain and denies burning or tingling pain. Since she has been off work recent ly due to a Risser she states the pain occurs when she is active as she has been doing a lot of outdoor activities because it is summertime. She has been wearing the orthotics which s he believes have helped overall but is still has not taken any pain. She stopped wearing th e brace. Patient is scheduled to see a [facility] physician in [place] for her wrist and ankle. Allergies Latex; Lexapro [escitalopram]; Oxycodone; Deblitane [norethindrone]; Hydrocodone; Uncoded n onscreenable allergen; and Adhesive & tape Vitals BP 118/78 | Pulse 74 | Resp Temp | Wt (!) 169.6 kg (374 lb) | BMI Body mass index is 5 3.66 kg/m. Physical Exam On physical exam today the patient is alert and oriented and has age-appropriate affect. S he is seated comfortably in the exam chair. Negative paresthesias, negative Tinel's. Mild tenderness palpation of the posterior tibial tendon course at the level of the ankle as well as the posterior tibial insertion. Patient unable to do a single heel raise. Moderate pro nation on ambulation bilateral. Assessment ICD-10-CM ICD-9-CM 1. Posterior tibial tendon dysfunction (PTTD) of left lower extremity M76.822 734 2. Sprain of deltoid ligament of left ankle, sequela S93.422S 905.7 845.01 Treatment and Plan of Care Recommend use of brace when active, otherwise orthotics. Recommended weight loss. Continu e ibuprofen. Pain as well as ice when necessary edema. Return to the office 3 months or wh en necessary Active Problems, Medical and Surgical Histories [...] septum History of falling Post-traumatic brain syndrome S/P right ECU tenosynovectomy on 03/20/19 Left otitis media with effusion Lymphadenopathy of head and neck Moderate persistent asthma with acute exacerbation Past Medical History: Diagnosis Date Allergic rhinitis Anemia Asthma Dysmenorrhea Hypertension Hypothyroid Iron deficiency Obesity ALVAREZ (obstructive sleep apnea) Periodontal disease, unspecified TMJ pain dysfunction syndrome Past Surgical History: Procedure Laterality Date EYE SURGERY HAND TENDON SURGERY Right 03/20/2019 Procedure: REPAIR E.C.U. Tendon; Surgeon: Inocencio Noriega MD; Location: [facility] SURGERY RIGHT KIDNER PROCEDURE 01/20/2016 Surgeon: Fani Mahajan MD; Location: [facility] TENDON RELEASE TONSILLECTOMY WISDOM TOOTH EXTRACTION Family History Problem Relation Age of Onset Other (see comment) Mother gallbladder disease Hypertension Father Other (see comment) Father arrhymthmia Breast cancer Sister Cervical cancer Maternal Grandmother Heart attack Maternal Aunt [place] Social History Socioeconomic History Marital status: Single [...] and their vital signs recorded by my retail event assistant today, a s found in this chart note. Electronically signed by: Emily Mittal DPM 12/06/2018 at 9:10 Note: Part of this report was transcribed using voice recognition software. Every effort wa s made to ensure accuracy. However, inadvertent computerized paint tinter errors may be pre sent. CC: Erika [...] | | | | | [place] [address] | | | | | | [phone] | | | | | | | | | | | | Julia Fisher, | | | | | | PT | | +--------+ + + + + | 02/18/ | Appointment | Rehabilitation | Erika Ernst, | | | 2019 | | | DO [address] [place] | | | | | | [place] [address] | | | | | | [phone] | | | | | | | | | | | | Genesis Ayon OT | | +--------+ + + + + | 02/25/ | Office | Primary Care | Erika Ernst, | | | 2019 | Visit | | DO [address] [place] | | | | | | [place] [address] | | | | | | [phone] | | | | | | | [...] | | | | | [place] [address] | | | | | | [phone] | | | | | | | | +--------+ + + + + | 02/27/ | Appointment | Radiology | Dhara | | | 2019 | | | DWAINE Ross [address] | | | [address] [place], | | | | | | [place] [address] | | | | | | [phone] | | | | | | | | +--------+ + + + + | 03/04/ | Appointment | Rehabilitation | Genesis Ayon OT | | | 2019 | | | | | +--------+ + + + + | 03/09/ | Office | Orthopedic Surgery | Jeffrey Gandhi, | | | 2019 | Visit | | [place] [address] [facility] | | | | | | [place] [address] | | | | | | [phone] | | | | | | | [...] [place] | | | | | | [address] | | | | | | [phone] | | | | | | | [...] | | | | | [place] [address] | | | | | | [phone] | | | | | | | | | | | | Azul Yeboah, | | | | | | MD [address] | | | | | | [place] | | | | | | [place] [address] | | | | | | [phone] | | | | | | | [...] | | | | | | [place] [address] | | | | | | [phone] | | | | | | | | +--------+ + + + + documented as of this encounter Visit Diagnoses + + | Diagnosis | + + | Posterior tibial tendon dysfunction (PTTD) of left lower extremity - Primary | + + | Sprain of deltoid ligament of left ankle, sequela | + + documented in this encounter
--- OUTSIDE RECORDS SUMMARY | ~2020-02-18 | XMS | Encounter Summary ---
Demographics + + + | Address | [address] | | | [place] [address] | + + + | Home Phone [...] Providers + +------+ + | Care Dump Operator Name | Role | Phone | [...] Medication Refill; | | 2019 | | [facility] | DO [address] | Medication Question | | | | MEDICAL CLINIC [address] | [place] [address] | (Please have DrCarmen | | | | [address] [place], | [phone] | Klever call patient | | | | [place] [address] | | Monday re: | | | | [phone] | | medication | | | | [...] | | | | | [place] [address] | | | | | | [phone] | | | | | | | | | | | | Julia Fisher, | | | | | | PT | | +--------+ + + + + | 02/18/ | Appointment | Rehabilitation | Erika Ernst, | | | 2019 | | | DO [address] [place] | | | | | | [place] [address] | | | | | | [phone] | | | | | | | | | | | | Genesis Ayon, OT | | +--------+ + + + + | 02/25/ | Office | Primary Care | Erika Ernst, | | | 2019 | Visit | | DO [address] [place] | | | | | | [place] [address] | | | | | | [phone] | | | | | | | [...] | | | | | [place] [address] | | | | | | [phone] | | | | | | | | +--------+ + + + + | 02/27/ | Appointment | Radiology | Dhara, | | | 2019 | | | DWAINE [address] | | | | | | 4TH [facility], | | | | | | [place] [address] | | | | | | [phone] | | | | | | | | +--------+ + + + + | 03/04/ | Appointment | Rehabilitation | Genesis Ayon OT | | | 2019 | | | | | +--------+ + + + + | 03/09/ | Office | Orthopedic Surgery | Jeffrey Gandhi, | | 2019 | Visit | | [address] | | | | | | [place] [address] | | | | | | [phone] | | | | | | | [...] [place] | | | | | | [address] | | | | | | [phone] | | | | | | | [...] | | | | | [place] [address] | | | | | | [phone] | | | | | | | | | | | | Azul Yeboah, | | | | | | MD [address] | | | | | | [place] | | | | | | [place] [address] | | | | | | [phone] | | | | | | | [...] | | | | | | [place] [address] | | | | | | [phone] | | | | | | | | +--------+ + + + + documented as of this encounter Visit Diagnoses Not on filedocumented in this encounter"
--- OUTSIDE RECORDS SUMMARY | ~2020-02-18 | XMS | Encounter Summary ---
Demographics + + + | Address | [address] | | | [place] [address] | + + + | Home Phone [...] Team Providers + +------+ + | Care Automation Control Integrator Name | Role | Phone | + [...] | [place], [place] | [place] [address] | | | | | [address] | [phone] | | | | | [phone] | | | +--------+ + + + [...] [place] | | | | | | [place] [address] | | | | | | [phone] | | | | | | | | | | | | Julia Fisher, | | | | | | PT | | +--------+ + + + + | 02/18/ | Appointment | Rehabilitation | Erika Ernst, | | | 2019 | | | DO [address] [place] | | | | | | [place] [address] | | | | | | [phone] | | | | | | | | | | | | Genesis Ayon, OT | | +--------+ + + + + | 02/25/ | Office | Primary Care | Erika Ernst, | | | 2019 | Visit | | DO [address] [place] | | | | | | [place] [address] | | | | | | [phone] | | | | | | | [...] | | | | | [place] [address] | | | | | | [phone] | | | | | | | | +--------+ + + + + | 02/27/ | Appointment | Radiology | Dhara, | | | 2019 | | | DWAINE Ross [address] [place], | | | | | | [place] [address] | | | | | | [phone] | | | | | | | [...] [place] | | | | | | [place] [address] | | | | | | [phone] | | | | | | | [...] [place] | | | | | | [address] | | | | | | [phone] | | | | | | | [...] | | | | | [place] [address] | | | | | | [phone] | | | | | | | | | | | | Azul Yeboah, | | | | | | [address] | | | | | | [place] | | | | | | [place] [address] | | | | | | [phone] | | | | | | | [...] | | | | | | [place] [address] | | | | | | [phone] | | | | | | | | +--------+ + + + + documented as of this encounter Visit Diagnoses Not on filedocumented in this encounter"
--- OUTSIDE RECORDS SUMMARY | ~2020-02-18 | XMS | Encounter Summary ---
Demographics + + + | Address | [address] | | | [place] [address] | + + + | Home Phone [...] Providers + +------+ + | Care Machine Striper Name | Role | Phone | + [...] 05/16/ | Telephone | [place] [facility] | HuertaVeronica, | Lab Results | | 2018 | | [facility] | FURNITURE ASSEMBLER AND INSTALLER | | | | | MEDICAL CLINIC [address] | | | | | | 4TH [facility] [place], | | | | | | [place] [address] | | | | | | [phone] | | | +--------+ + + + [...] | | 2019 | | | DO [facility] | | | | | | [place] [address] | | | | | | [phone] | | | | | | | | | | | | Julia Fisher, | | | | | | PT | | +--------+ + + + + | 05/20/ | Appointment | Rehabilitation | Erika Ernst, | | | 2019 | | | DO [address] [place] | | | | | | [place] [address] | | | | | | [phone] | | | | | | | | | | | | [facility] Ayon OT | | +--------+ + + + + | 02/25/ | Office | Primary Care | Erika Ernst, | | | 2019 | Visit | | DO [address] [place] | | | | | | [place] [address] | | | | | | [phone] | | | | | | | [...] | | | | | [place] [address] | | | | | | [phone] | | | | | | | | +--------+ + + + + | 02/27/ | Appointment | Radiology | Dhara, | | | 2019 | | | DWAINE Ross [address] | | | | | | 4TH [facility] [place], | | | | | | [place] [address] | | | | | | [phone] | | | | | | | [...] | | | | | [place] [address] | | | | | | [phone] | | | | | | | [...] [place] | | | | | | [address] | | | | | | [phone] | | | | | | | [...] | | | | | [place] [address] | | | | | | [phone] | | | | | | | | | | | | Azul Yeboah, | | | | | | MD [address] | | | | | | [place] | | | | | | [place] [address] | | | | | | [phone] | | | | | | | [...] | | | | | | [place] [address] | | | | | | [phone] | | | | | | | | +--------+ + + + + documented as of this encounter Visit Diagnoses Not on filedocumented in this encounter"
--- OUTSIDE RECORDS SUMMARY | ~2020-02-18 | XMS | Encounter Summary ---
Demographics + + + | Address | [address] | | | [place] [address] | + + + | Home Phone [...] Team Providers + +------+ + | Care Forest Fire Fighter Name | Role | Phone | + [...] Description | +--------+--------+ + + + | 09/21/ | Refill | [place] [facility] | Erika Ernst, | Medication Refill | | 2017 | | [facility] | DO [address] | | | | | MEDICAL CLINIC [address] | [place] [address] | | | | | [address] [place], | [phone] | | | | | [place] [address] | | | | | | [phone] | | | +--------+--------+ + + + [...] | | | | | [place] [address] | | | | | | [phone] | | | | | | | | | | | | Julia Fisher, | | | | | | PT | | +--------+ + + + + | 02/18/ | Appointment | Rehabilitation | Erika Ernst, | | | 2019 | | | DO [address] [place] | | | | | | [place] [address] | | | | | | [phone] | | | | | | | | | | | | Genesis Ayon OT | | +--------+ + + + + | 02/25/ | Office | Primary Care | Erika Ernst, | | | 2019 | Visit | | DO [address] [place] | | | | | | [place] [address] | | | | | | [phone] | | | | | | | [...] | | | | | [place] [address] | | | | | | [phone] | | | | | | | | +--------+ + + + + | 02/27/ | Appointment | Radiology | Dhara, | | | 2019 | | | DWAINE Ross [address] | | | | | | 4TH [facility], | | | | | | [place] [address] | | | | | | [phone] | | | | | | | [...] | | | | | [place] [address] | | | | | | [phone] | | | | | | | [...] [place] | | | | | | [address] | | | | | | [phone] | | | | | | | [...] | | | | | [place] [address] | | | | | | [phone] | | | | | | | | | | | | Azul Yeboah, | | | | | | MD [address] | | | | | | [place] | | | | | | [place] [address] | | | | | | [phone] | | | | | | | [...] | | | | | | [place] [address] | | | | | | [phone] | | | | | | | | +--------+ + + + + documented as of this encounter Visit Diagnoses + + | Diagnosis | + + | Hypertension, unspecified type - Primary | + + documented in this encounter"
--- OUTSIDE RECORDS SUMMARY | ~2020-02-18 | XMS | Encounter Summary ---
Demographics + + + | Address | [address] | | | [place] [address] | + + + | Home Phone [...] Team Providers + +------+ + | Care Assurance Senior Manager Insurance Name | Role | Phone | + [...] | MEDICAL CLIN[facility] [address] | [place] [address] | (Primary Dx) | | | | [address] [place], | [phone] | | | | | [place] [address] | | | | | | [phone] | | | +--------+ + + + [...] | 2019 | | | DO [address] | | | | | | [place] [address] | | | | | | [phone] | | | | | | | | | | | | Julia Fisher, | | | | | | PT | | +--------+ + + + + | 02/18/ | Appointment | Rehabilitation | Erika Ernst, | | | 2019 | | | DO [address] [place] | | | | | | [place] [address] | | | | | | [phone] | | | | | | | | | | | | [facility] OT | | +--------+ + + + + | 02/25/ | Office | Primary Care | Erika Ernst, | | | 2019 | Visit | | DO [address] [place] | | | | | | [place] [address] | | | | | | [phone] | | | | | | | [...] | | | | | [place] [address] | | | | | | [phone] | | | | | | | | +--------+ + + + + | 02/27/ | Appointment | Radiology | Dhara, | | | 2019 | | | [address] Ross [address] | | | | | | [facility] [facility] | | | | | | [place] [address] | | | | | | [phone] | | | | | | | [...] | | | | [place] [address] | | | | | | [phone] | | | | | | | [...] [place] | | | | | | [address] | | | | | | [phone] | | | | | | | [...] | | | | | [place] [address] | | | | | | [phone] | | | | | | | | | | | | Azul Yeboah, | | | | | | MD [address] | | | | | | [place] | | | | | | [place] [address] | | | | | | [phone] | | | | | | | [...] | | | | | | [place] [address] | | | | | | [phone] | | | | | | | | +--------+ + + + + documented as of this encounter Visit Diagnoses + + | Diagnosis | + + | Essential hypertension - Primary Unspecified essential hypertension | + + documented in this encounter"
--- OUTSIDE RECORDS SUMMARY | ~2020-02-18 | XMS | Encounter Summary ---
Demographics + + + | Address | [address] | | | [place] [address] | + + + | Home Phone [...] Team Providers + +------+ + | Care Gluten Settling Tender Name | Role | Phone | [...] | | | 2018 | Support | [facility] | DO [address] | | | | | MEDICAL CLINIC [address] | [place] [address] | | | | | [address] [place], | [phone] | | | | | [place] [address] | | | | | | [phone] | | | +--------+ + + + [...] | | | | | [place] [address] | | | | | | [phone] | | | | | | | | | | | | Julia Fisher, | | | | | | PT | | +--------+ + + + + | 02/18/ | Appointment | Rehabilitation | Erika Ernst, | | | 2019 | | | DO [address] [place] | | | | | | [place] [address] | | | | | | [phone] | | | | | | | | | | | | Genesis Ayon, OT | | +--------+ + + + + | 02/25/ | Office | Primary Care | Erika Ernst, | | | 2019 | Visit | | DO [address] [place] | | | | | | [place] [address] | | | | | | [phone] | | | | | | | [...] | | | | | [place] [address] | | | | | | [phone] | | | | | | | | +--------+ + + + + | 02/27/ | Appointment | Radiology | Dhara, | | | 2019 | | | DWAINE Ross [address] | | | | | [address] [place], | | | | | | [place] [address] | | | | | | [phone] | | | | | | | [...] [place] | | | | | | [place] [address] | | | | | | [phone] | | | | | | | [...] [place] | | | | | | [address] | | | | | | [phone] | | | | | | | [...] | | | | | [place] [address] | | | | | | [phone] | | | | | | | | | | | | Azul Yeboah, | | | | | | [address] | | | | | | [place] | | | | | | [place] [address] | | | | | | [phone] | | | | | | | [...] | | | | | | [place] [address] | | | | | | [phone] | | | | | | | | +--------+ + + + + documented as of this encounter Visit Diagnoses Not on filedocumented in this encounter"
--- OUTSIDE RECORDS SUMMARY | ~2020-02-18 | XMS | Encounter Summary ---
Demographics + + + | Address | [address] | | | [place] [address] | + + + | Home Phone [...] Team Providers + +------+ + | Care Illuminating Engineer Name | Role | Phone | + +------+ + | Erika Ernst DO | PCP | | + +------+ + Reason for Visit + + + | Reason | Comments | + + + | Post-op Exam | 1 wk PO Splint check NO DOS: 03/20/2019 | + + + Encounter Details +--------+ + + + + | Date | Type | Department | Care Team | Description | +--------+ + + + + | 03/28/ | Clinical | [place] [facility] | Inocencio Noriega | Torn tendon (Primary | | 2019 | Support | [facility] | MD [address] | Dx) | | | | [address] [place] | [address] | | | | | [place], [place] | [place] [address] | | | | | [address] | [phone] | | | | | [phone] | | | +--------+ + + + [...] + + + | Blood Pressure | 166/113 | 03/28/2019 9:02 AM | Pt. states tracking | | | | PDT | & managing BP with | | | | | Dr. Ernst | + + + + + | Pulse | 69 | 03/28/2019 9:02 AM | | | | | PDT | | + + + + + | Temperature | 36.3 C (97.3 F) | 03/28/2019 9:02 AM | | | | | PDT | | + + + + + | Respiratory Rate | 24 | 03/28/2019 9:02 AM | | | | | PDT | | + + + + + | Oxygen Saturation | 98% | 03/28/2019 9:02 AM | | | | | PDT [...] in this encounter Patient Instructions Patient Instructions Olga Mckeon RN - 03/28/2019 9:00 AM PDTRICE extremity. Do not remove splint. F/U in clinic on 04/02/2019 for 2 wk PO check. documented in this encounter Progress Notes Olga Mckeon RN - 03/28/2019 9:00 AM PDTPt. Presents to clinic today for NO splint yousif lino. She states that she was in to see Shiva Malone on Monday03/26/2019 for a Post-op exam, and he placed her in a splint. She states that since that time, she has been having pain at her incision site, where the splint is rubbing, and her arm seems to be shifting side to si de in the splint. She is requesting that we evaluate the fit of the splint today, and rewra p her if possible. Pt. States that her pain is a level 7, and that it has been consistent at this level since her surgery on 03/20/2019. She is Icing, elevating, and taking pain medicine as needed. She states that she is trying to avoid Ibuprofen as recommended by Dr. Ernst, as she has been using it excessively in the past. She feels satisfied with Post-op status at this stage, an d has good movement and sensation in her fingers, which are all warm, pink and dry. She st ates that her only concern is that the splint is uncomfortable. Dr. Noriega was able to remove splint, and resplint her with new materials. Pt. States that the new splint feels comfortable, and she will plan to wear it, and follow instructions, un til she is seen for next PO apt. On 04/02/2019. She understands instructions about resting ex tremity, keeping splint on, using pain medicine as needed, monitoring sensation and coloring in fingers, and icing and elevating arm. She has no further questions, but will contact us if further concerns arise. Pt. Will return for f/u apt. On 04/02/2019. Olga Mckeon RN documented in thi s encounter Plan of Treatment +--------+ + + + + | Date | Type | Specialty | Care Team | Description | +--------+ + + + + | 02/18/ | Appointment | Rehabilitation | Erika Ernst, | | | 2019 | | | DO [address] [place] | | | | | | [place] [address] | | | | | | [phone] | | | | | | | | | | | | Julia Fisher, | | | | | | PT | | +--------+ + + + + | 02/18/ | Appointment | Rehabilitation | Erika Ernst, | | | 2019 | | | DO [address] [place] | | | | | | [place] [address] | | | | | | [phone] | | | | | | | | | | | | [facility] OT | | +--------+ + + + + | 02/25/ | Office | Primary Care | Erika Ernst, | | | 2019 | Visit | | DO [address] [place] [address] | | | | | | [place] [address] | | | | | | [phone] | | | | | | | [...] | | | | | [place] [address] | | | | | | [phone] | | | | | | | | +--------+ + + + + | 02/27/ | Appointment | Radiology | Dhara, | | | 2019 | | | [address]WA[address] Ross [address] | | | | | | [address] [facility] [place], | | | | | | [place] [address] | | | | | | [phone] | | | | | | | | +--------+ + + + + | 03/04/ | Appointment | Rehabilitation | Genesis Ayon OT | | | 2019 | | | | | +--------+ + + + + | 03/09/ | Office | Orthopedic Surgery | Jeffrey Gandhi, | | | 2019 | Visit | | [address] [place] | | | | | | [place] [address] | | | | | | [phone] | | | | | | | | +--------+ + + + + | 03/11/ | Appointment | Rehabilitation | Genessi Ayon [...] [place] | | | | | | [address] | | | | | | [phone] | | | | | | | | +--------+ + + + + | 03/25/ | Appointment | Rehabilitation | Genesis Ayon OT | | | 2019 | | | | | +--------+ + + + + | 04/08/ | Office | Neurology | Erika Ernst | | | 2019 | Visit | | DO [address] | | | | | | [place] [address] | | | | | | [phone] | | | | | | | | | | | | Azul Yeboah, | | | | | | MD [address] | | | | | | [address] [place] | | | | | | [place] [address] | | | | | | [phone] | | | | | | | [...] | | | | | | [place] [address] | | | | | | [phone] | | | | | | | | +--------+ + + + + documented as of this encounter Visit Diagnoses + + | Diagnosis | + + | Torn tendon - Primary Unspecified site of sprain and strain | + + documented in this encounter"
--- OUTSIDE RECORDS SUMMARY | ~2020-02-18 | XMS | Encounter Summary ---
Demographics + + + | Address | [address] | | | [place] [address] | + + + | Home Phone [...] Team Providers + +------+ + | Care Personal Financial Advisor Name | Role | Phone | + +------+ + PCP | Unavailable | + +------+ + Encounter Details +--------+ + + + + | Date | Type | Department | Care Team | Description | +--------+ + + + + | 06/22/ | [facility] | [place] [facility] | Amaya Varner NP | | | 2016 | Encounter | [facility] | [address] | | | | | MEDICAL [facility] [address] | [place], [place] | | | | | [address] [place], | [address] | | | | | [place] [address] | [phone] | | | | | [phone] | | | +--------+ + + + [...] | | 2020 | | | DO [facility] | | | | | | [place], [place] [address] | | | | | | [phone] | | | | | | | | | | | | Julia Fisher, | | | | | | PT | | +--------+ + + + + | 02/18/ | Appointment | Rehabilitation | Erika Ernst, | | | 2019 | | | DO [address] | | | | | | [place] [address] | | | | | | [phone] | | | | | | | | | | | | Genesis Ayon, SUSAN | | +--------+ + + + + | 02/25/ | Office | Primary Care | Erika Ernst, | | | 2019 | Visit | | DO [address] | | | | | | [place] [address] | | | | | | [phone] | | | | | | | [...] | | | | | [place] [address] | | | | | | [phone] | | | | | | | | +--------+ + + + + | 02/27/ | Appointment | Radiology | Dhara, | | | 2019 | | | [address] | | | | | | [address] [facility] [place], | | | | | | [place] [address] | | | | | | [phone] | | | | | | | [...] | | | | | [place] [address] | | | | | | [phone] | | | | | | | [...] [place] | | | | | | [address] | | | | | | [phone] | | | | | | | [...] | | | | | [place] [address] | | | | | | [phone] | | | | | | | | | | | | Azul Yeboah, | | | | | | MD [address] | | | | | | [place] | | | | | | [place] [address] | | | | | | [phone] | | | | | | | [...] | | | | | | [place] [address] | | | | | | [phone] | | | | | | | | +--------+ + + + + documented as of this encounter Visit Diagnoses Not on filedocumented in this encounter"
--- OUTSIDE RECORDS SUMMARY | ~2020-02-18 | XMS | Encounter Summary ---
Demographics + + + | Address | [address] | | | [place] [address] | + + + | Home Phone [...] [facility] | | | [...] Team Providers + +------+ + | Care Tenoner Operator Name | Role | Phone | [...] Medication Refill; | | 2018 | | [facility] | [address] | Medication Refill | | | | MEDICAL CLINIC [address] | [facility] [place] [address] | | | | | [address] [place], | [phone] | | | | | [place] [address] | | | | | | [phone] | | | +--------+--------+ + + + [...] | | | | | [place] [address] | | | | | | [phone] | | | | | | | | | | | | Julia Fisher, | | | | | | PT | | +--------+ + + + + | 02/18/ | Appointment | Rehabilitation | Erika Ernst, | | | 2019 | | | DO [address] | | | | | | [place] [address] | | | | | | [phone] | | | | | | | | | | | | Genesis Ayon OT | | +--------+ + + + + | 02/25/ | Office | Primary Care | Erika Ernst, | | | 2019 | Visit | | DO [address] | | | | | | [place] [address] | | | | | | [phone] | | | | | | | [...] | | | | | | [place] [address] | | | | | | [phone] | | | | | | | | +--------+ + + + + | 02/27/ | Appointment | Radiology | Dhara, | | | 2019 | | | [address] | | | | | | 4TH [facility], | | | | | | [place] [address] | | | | | | [phone] | | | | | | | [...] [place] | | | | | | [place] [address] | | | | | | [phone] | | | | | | | [...] [place] | | | | | | [address] | | | | | | [phone] | | | | | | | [...] | | | | | [place] [address] | | | | | | [phone] | | | | | | | | | | | | Azul Yeboah, | | | | | | MD [address] | | | | | | [place] | | | | | | [place] [address] | | | | | | [phone] | | | | | | | [...] | | | | | | [place] [address] | | | | | | [phone] | | | | | | | | +--------+ + + + + documented as of this encounter Visit Diagnoses Not on filedocumented in this encounter"
--- OUTSIDE RECORDS SUMMARY | ~2020-02-18 | XMS | Encounter Summary ---
Demographics + + + | Address | [address] | | | [place] [address] | + + + | Home Phone [...] Providers + +------+ + | Care Meter Reader Inspector Name | Role | Phone | [...] | MEDICAL CLINIC [address] | [place] [address] | | | | | [address] [place], | [phone] | | | | | [place] [address] | | | | | | [phone] | | | +--------+ + + + [...] | | | | | [place] [address] | | | | | | [phone] | | | | | | | | | | | | Julia Fisher, | | | | | | PT | | +--------+ + + + + | 02/18/ | Appointment | Rehabilitation | Erika Ernst, | | | 2019 | | | DO [address] | | | | | | [place] [address] | | | | | | [phone] | | | | | | | | | | | | Genesis Ayon OT | | +--------+ + + + + | 02/25/ | Office | Primary Care | Erika Ernst, | | | 2019 | Visit | | DO [address] | | | | | | [place] [address] | | | | | | [phone] | | | | | | | [...] [place] | | | | | | [place] [address] | | | | | | [phone] | | | | | | | | +--------+ + + + + | 02/27/ | Appointment | Radiology | Dhara, | | | 2019 | | | [address] | | | | | | 4TH [facility], | | | | | | [place] [address] | | | | | | [phone] | | | | | | | | +--------+ + + + + | 03/04/ | Appointment | Rehabilitation | Genesis Ayon OT | | | 2019 | | | | | +--------+ + + + + | 03/09/ | Office | Orthopedic Surgery | Jeffrey Gandhi, | | | 2019 | Visit | | [address] | | | | | | [place] [address] | | | | | | [phone] | | | | | | | [...] [place] | | | | | | [address] | | | | | | [phone] | | | | | | | [...] | | | | | [place] [address] | | | | | | [phone] | | | | | | | | | | | | Azul Yeboah, | | | | | | [address] | | | | | | [place] | | | | | | [place] [address] | | | | | | [phone] | | | | | | | [...] | | | | | | [place] [address] | | | | | | [phone] | | | | | | | | +--------+ + + + + documented as of this encounter Visit Diagnoses Not on filedocumented in this encounter"
--- OUTSIDE RECORDS SUMMARY | ~2020-02-18 | XMS | Encounter Summary ---
Demographics + + + | Address | [address] | | | [place] [address] | + + + | Home Phone [...] Team Providers + +------+ + | Care Window And Door Installer Name | Role | Phone | [...] | | | of left | [place] [address] | [place] [address] | | | | | ankle, | Phone: | Phone: | | | | | initial | [phone] | [phone] | | | | | encounter | Fax: | Fax: | | | | | Procedures | [phone] | [phone] | | | | | PT EVAL [...] [address] | [place] [address] | ligament of left | | | | [place], [place] | [phone] | ankle, initial | | | | [address] | | encounter | | | | [phone] | Nick Barrios I, PT | | [...] might be different hannah tan the original. [facility] PT [address] [place] [address] Physical Therapy Daily Treatment Note Date: 07/10/2018 [...] been noticing "popping" sounds when performing ankle [place] exercises at home. Sh e felt fine [...] | | | | | [place] [address] | | | | | | [phone] | | | | | | | | | | | | Julia Fisher, | | | | | | PT | | +--------+ + + + + | 02/18/ | Appointment | Rehabilitation | Erika Ernst, | | | 2019 | | | DO [address] | | | | | | [place] [address] | | | | | | [phone] | | | | | | | | | | | | Genesis Ayon, OT | | +--------+ + + + + | 02/25/ | Office | Primary Care | Erika Ernst, | | | 2019 | Visit | | DO [address] | | | | | | [place] [address] | | | | | | [phone] | | | | | | | [...] | | | | | [place] [address] | | | | | | [phone] | | | | | | | | +--------+ + + + + | 02/27/ | Appointment | Radiology | Dhara, | | | 2019 | | | [address] | | | | | | 4TH [facility], | | | | | | [place] [address] | | | | | | [phone] | | | | | | | | +--------+ + + + + | 03/04/ | Appointment | Rehabilitation | Genesis Ayon OT | | | 2019 | | | | | +--------+ + + + + | 03/09/ | Office | Orthopedic Surgery | Jeffrey Gandhi, | | | 2019 | Visit | | [address] [facility] | | | | | | [place] [address] | | | | | | [phone] | | | | | | | [...] [place] | | | | | | [address] | | | | | | [phone] | | | | | | | [...] | | | | | [place] [address] | | | | | | [phone] | | | | | | | | | | | | Azul Yeboah, | | | | | | MD [address] | | | | | | [place] | | | | | | [place] [address] | | | | | | [phone] | | | | | | | [...] | | | | | | [place] [address] | | | | | | [phone] | | | | | | | | +--------+ + + + + documented as of this encounter Visit Diagnoses + + | Diagnosis | + + | Sprain of calcaneofibular ligament of left ankle, initial encounter | + + documented in this encounter
--- OUTSIDE RECORDS SUMMARY | ~2020-02-18 | XMS | Encounter Summary ---
Demographics + + + | Address | [address] | | | [place] [address] | + + + | Home Phone [...] Providers + +------+ + | Care Line Repairer Tower Name | Role | Phone | + [...] 08/05/ | Telephone | [place] [facility] | Luis Nichole MD | Appointment Question | | 2019 | | [facility]PITAL [facility] | [address] [place] | | | | | CLIN[address] | [place] | | | | | [address] [place], | [address] | | | | | [place] [address] | | | | | | [phone] | | | +--------+ + + + [...] | | | | | [place] [address] | | | | | | [phone] | | | | | | | | | | | | Julia Fisher, | | | | | | PT | | +--------+ + + + + | 02/18/ | Appointment | Rehabilitation | Erika Ernst, | | | 2019 | | | DO [address] | | | | | | [place] [address] | | | | | | [phone] | | | | | | | | | | | | Genesis Ayon, OT | | +--------+ + + + + | 02/25/ | Office | Primary Care | Erika Ernst, | | | 2019 | Visit | | DO [address] [place] | | | | | | [place] [address] | | | | | | [phone] | | | | | | | [...] | | | | | [place] [address] | | | | | | [phone] | | | | | | | | +--------+ + + + + | 02/27/ | Appointment | Radiology | Dhara, | | | 2019 | | | [address] | | | | | | 4TH [facility], | | | | | | [place] [address] | | | | | | [phone] | | | | | | | | +--------+ + + + + | 03/04/ | Appointment | Rehabilitation | Genesis Ayon OT | | | 2019 | | | | | +--------+ + + + + | 03/09/ | Office | Orthopedic Surgery | Jeffrey Gandhi, | | | 2019 | Visit | | [address] [facility] | | | | | | [place] [address] | | | | | | [phone] | | | | | | | [...] [place] | | | | | | [address] | | | | | | [phone] | | | | | | | [...] | | | | | [place] [address] | | | | | | [phone] | | | | | | | | | | | | Azul Yeboah, | | | | | | MD [address] | | | | | | [place] | | | | | | [place] [address] | | | | | | [phone] | | | | | | | [...] | | | | | | [place] [address] | | | | | | [phone] | | | | | | | | +--------+ + + + + documented as of this encounter Visit Diagnoses Not on filedocumented in this encounter"
--- OUTSIDE RECORDS SUMMARY | ~2020-02-18 | XMS | Encounter Summary ---
Demographics + + + | Address | [address] | | | [place] [address] | + + + | Home Phone [...] Providers + +------+ + | Care Automotive Service Cashier Name | Role | Phone | [...] | | | of left | [place] [address] | [place], [place] | | | | | ankle, | Phone: | [phone] | | | | | initial | [phone] | Phone: | | | | | encounter | Fax: | [phone] | | | | | Procedures | [phone] | Fax: | | | | | [place] | | [phone] | +--------+ + + + + + [...] | [place], [place] | [place] [address] | Dx); Sprain of left | | | | [address] | [phone] | ankle, unspecified | | | | [phone] | | ligament, initial | | | [...] Age: 28 y.o. | : 1990 | [address] | Author: ABHI GRIMES DO | Date of Encounter: 06/19/2018 Chief complaint Chief Complaint Patient presents with Ankle Injury Left DOI: 05/31/18 Date of injury History of Present Illness Andrea Suh is a 28 y.o. female referral from her PCP regarding a sprained ankle. This is a workman's comp case. She states approximately 3 weeks ago she was walking in the [employer] [place] when she slipped on some twigs [...] PM 90 tablet 5 Cholecalciferol (VITAMIN D3) 83267 units TABS Take 1 tablet by mouth [...] PROCEDURE 01/20/2016 Surgeon: Fani Mahajan MD; Location: [facility] TONSILLECTOMY WISDOM TOOTH EXTRACTION Family [...] their vital signs recorded by my assistant football coach today, a s found in this chart note. Electronically signed by: Abhi Grimes DO 06/19/2018 at 15:43 Note: Part of this report was transcribed using voice recognition software. Every effort wa s made to ensure accuracy. However, inadvertent computerized glue spreading machine operator errors may be pre sent. CC: [...] | | | | | [place] [address] | | | | | | [phone] | | | | | | | | | | | | Julia Fisher, | | | | | | PT | | +--------+ + + + + | 02/18/ | Appointment | Rehabilitation | Erika Ernst, | | | 2019 | | | DO [address] | | | | | | [place] [address] | | | | | | [phone] | | | | | | | | | | | | Genesis Ayon OT | | +--------+ + + + + | 02/25/ | Office | Primary Care | Erika Ernst, | | | 2019 | Visit | | DO [address] [place] | | | | | | [place] [address] | | | | | | [phone] | | | | | | | [...] | | | | | [place] [address] | | | | | | [phone] | | | | | | | | +--------+ + + + + | 02/27/ | Appointment | Radiology | Dhara, | | | 2019 | | | [address] | | | | | | 4TH [facility], | | | | | | [place] [address] | | | | | | [phone] | | | | | | | [...] | | | | | [place] [address] | | | | | | [phone] | | | | | | | [...] [place] | | | | | | [address] | | | | | | [phone] | | | | | | | [...] | | | | | [place] [address] | | | | | | [phone] | | | | | | | | | | | | Azul Yeboah, | | | | | | MD [address] | | | | | | [place] | | | | | | [place] [address] | | | | | | [phone] | | | | | | | [...] | | | | | | [place] [address] | | | | | | [phone] | | | | | | | [...]
--- OUTSIDE RECORDS SUMMARY | ~2020-02-18 | XMS | Encounter Summary ---
Demographics + + + | Address | [address] | | | [place] [address] | + + + | Home Phone [...] Team Providers + +------+ + | Care Monorail Crane Operator Name | Role | Phone | + +------+ + PCP | Unavailable | + +------+ + Encounter Details +--------+ + + + + | Date | Type | Department | Care Team | Description | +--------+ + + + + | 06/02/ | [facility] | [place] [facility] | Amaya Varner NP | | | 2016 | Encounter | [facility] | [address] | | | | | MEDICAL CLINIC [address] | [place], [place] | | | | | [address] [place], | [address] | | | | | [place] [address] | [phone] | | | | | [phone] | | | +--------+ + + + [...] | | 2020 | | | DO [facility] | | | | | | [place], [place] [address] | | | | | | [phone] | | | | | | | | | | | | Julia Fisher, | | | | | | PT | | +--------+ + + + + | 02/18/ | Appointment | Rehabilitation | Erika Ernst, | | | 2019 | | | DO [address] [place] | | | | | | [place] [address] | | | | | | [phone] | | | | | | | | | | | | Genesis Ayon, SUSAN | | +--------+ + + + + | 02/25/ | Office | Primary Care | Erika Ernst, | | | 2019 | Visit | | DO [address] [place] | | | | | | [place] [address] | | | | | | [phone] | | | | | | | [...] | | | | | [place] [address] | | | | | | [phone] | | | | | | | | +--------+ + + + + | 02/27/ | Appointment | Radiology | Dhara, | | | 2019 | | | [address] | | | | | | 4TH [facility] [place], | | | | | | [place] [address] | | | | | | [phone] | | | | | | | [...] | | | | | [place] [address] | | | | | | [phone] | | | | | | | [...] [place] | | | | | | [address] | | | | | | [phone] | | | | | | | [...] | | | | | [place] [address] | | | | | | [phone] | | | | | | | | | | | | Azul Yeboah, | | | | | | MD [address] | | | | | | [place] | | | | | | [place] [address] | | | | | | [phone] | | | | | | | [...] | | | | | | [place] [address] | | | | | | [phone] | | | | | | | | +--------+ + + + + documented as of this encounter Visit Diagnoses Not on filedocumented in this encounter"
--- OUTSIDE RECORDS SUMMARY | ~2020-02-18 | XMS | Encounter Summary ---
Demographics + + + | Address | [address] | | | [place] [address] | + + + | Home Phone [...] Team Providers + +------+ + | Care Paraprofessional Aide Teacher Name | Role | Phone | + +------+ + | Erika Ernst DO | PCP | | + +------+ + Encounter Details +--------+ + + + + | Date | Type | Department | Care Team | Description | +--------+ + + + + | 05/20/ | Hospital | [place] [facility] | Erika Ernst, | Foot pain, left | | 2019 | Encounter | HOSPITAL XRAY [address] | DO [address] | | | | | [address] [place] | [place] [address] | | | | | [place], [place] | [phone] | | | | | [address] | | | | | | [phone] | | | +--------+ + + + [...] mg TID | 90 | 5 | 05/17/20 | | | 15 mg tablet | [...] | 04/12/20 | | | (VITAMIN D3) 56149 | mouth Once a week | tablet [...] 6 hours as | | | | 9 | | | needed. | | | [...] | | | | | [place] [address] | | | | | | [phone] | | | | | | | | | | | | Julia Fisher, | | | | | | PT | | +--------+ + + + + | 02/18/ | Appointment | Rehabilitation | Erika Ernst, | | | 2019 | | | DO [address] [place] | | | | | | [place] [address] | | | | | | [phone] | | | | | | | | | | | | Genesis Ayon OT | | +--------+ + + + + | 02/25/ | Office | Primary Care | Erika Ernst, | | | 2019 | Visit | | DO [address] [place] | | | | | | [place] [address] | | | | | | [phone] | | | | | | | [...] | | | | | [place] [address] | | | | | | [phone] | | | | | | | | +--------+ + + + + | 02/27/ | Appointment | Radiology | Dhara, | | | 2019 | | | [address] | | | | | | [address] [place], | | | | | | [place] [address] | | | | | | [phone] | | | | | | | | +--------+ + + + + | 03/04/ | Appointment | Rehabilitation | Genesis Ayon OT | | | 2019 | | | | | +--------+ + + + + | 03/09/ | Office | Orthopedic Surgery | Jeffrey Gandhi, | | | 2019 | Visit | | [address] | | | | | | [place] [address] | | | | | | [phone] | | | | | | | [...] [place] | | | | | | [address] | | | | | | [phone] | | | | | | | [...] | | | | | [place] [address] | | | | | | [phone] | | | | | | | | | | | | Azul Yeboah, | | | | | | MD [address] | | | | | | [place] | | | | | | [place] [address] | | | | | | [phone] | | | | | | | [...] | | | | | | [place] [address] | | | | | | [phone] | | | | | | | | +--------+ + + + + documented as of this encounter Procedures + +--------+ + + + | Procedure Name | Priori | Date/Time | Associated Diagnosis | Comments | | | ty | | | | + +--------+ + + + | XR FOOT LEFT 3 + VW | Routin | 05/20/2019 | Foot pain, left | Results for this | | | e | 1:30 PM | | procedure are in the | | | | PDT | | results section. | + +--------+ + + + documented in this encounter Results XR Foot Left 3 + Vw (05/20/2019 1:30 PM [...] | Procedure Note | + -------+ | Mitcehl, Rad Results In - 05/20/2019 1:40 PM PDT [...] | | Graeme | |COMPARISON STUDY: | |02/02/2019. [...] + | Diagnosis | + + | Foot pain, left Pain in limb | + + documented in this encounter"
--- OUTSIDE RECORDS SUMMARY | ~2020-02-18 | XMS | Encounter Summary ---
Demographics + + + | Address | [address] | | | [place] [address] | + + + | Home Phone [...] Providers + +------+ + | Care Nurse Research Name | Role | Phone | + [...] Medication Follow-up | | 2018 | | [facility] | DO [address] | | | | | MEDICAL CLINIC [address] | [facility] [address] | | | | | [address] [place], | [phone] | | | | | [place] [address] | | | | | | [phone] | | | +--------+ + + + [...] | | | | | [place] [address] | | | | | | [phone] | | | | | | | | | | | | Julia Fisher, | | | | | | PT | | +--------+ + + + + | 02/18/ | Appointment | Rehabilitation | Erika Ernst, | | | 2019 | | | DO [address] [place] | | | | | | [place] [address] | | | | | | [phone] | | | | | | | | | | | | Genesis Ayon OT | | +--------+ + + + + | 02/25/ | Office | Primary Care | Erika Ernst, | | | 2019 | Visit | | DO [address] [place] | | | | | | [place] [address] | | | | | | [phone] | | | | | | | [...] | | | | | [place] [address] | | | | | | [phone] | | | | | | | | +--------+ + + + + | 02/27/ | Appointment | Radiology | Dhara, | | | 2019 | | | [address] | | | | | | [address] [facility] [place], | | | | | | [place] [address] | | | | | | [phone] | | | | | | | [...] [place] | | | | | | [place] [address] | | | | | | [phone] | | | | | | | [...] [place] | | | | | | [address] | | | | | | [phone] | | | | | | | [...] | | | | | [place] [address] | | | | | | [phone] | | | | | | | | | | | | Azul Yeboah, | | | | | | MD [address] | | | | | | [place] | | | | | | [place] [address] | | | | | | [phone] | | | | | | | [...] | | | | | | [place] [address] | | | | | | [phone] | | | | | | | | +--------+ + + + + documented as of this encounter Visit Diagnoses Not on filedocumented in this encounter"
--- OUTSIDE RECORDS SUMMARY | ~2020-02-18 | XMS | Encounter Summary ---
Demographics + + + | Address | [address] | | | [place] [address] | + + + | Home Phone [...] Providers + +------+ + | Care Historical Guide Name | Role | Phone | + +------+ + | Erika Ernst DO | PCP | | + +------+ + Reason for Visit +--------+ + | Reason | Comments | +--------+ + | Other | please call [phone] | +--------+ + Encounter Details +--------+ + + + + | Date | Type | Department | Care Team | Description | +--------+ + + + + | 10/23/ | Telephone | [place] [facility] | Erika Ernst, | Other (please call | | 2019 | | [facility] | DO [address] [place] | [phone]) | | | | MEDICAL CLINIC [address] | [facility] [address] | | | | | [address] [place], | [phone] | | | | | [place] [address] | | | | | | [phone] | | | +--------+ + + + [...] | | | | | [place] [address] | | | | | | [phone] | | | | | | | | | | | | Julia Fisher, | | | | | | PT | | +--------+ + + + + | 02/18/ | Appointment | Rehabilitation | Erika Ernst, | | | 2019 | | | DO [address] [place] | | | | | | [place] [address] | | | | | | [phone] | | | | | | | | | | | | Genesis Ayon, OT | | +--------+ + + + + | 02/25/ | Office | Primary Care | Erika Ernst, | | | 2019 | Visit | | DO [address] [place] | | | | | | [place] [address] | | | | | | [phone] | | | | | | | [...] | | | | | [place] [address] | | | | | | [phone] | | | | | | | | +--------+ + + + + | 02/27/ | Appointment | Radiology | Dhara, | | | 2019 | | | [address] | | | | | | [address] [facility], | | | | | | [place] [address] | | | | | | [phone] | | | | | | | | +--------+ + + + + | 03/04/ | Appointment | Rehabilitation | Genesis Ayon OT | | | 2019 | | | | | +--------+ + + + + | 03/09/ | Office | Orthopedic Surgery | Jeffrey Gandhi, | | | 2019 | Visit | | [address] | | | | | | [place] [address] | | | | | | [phone] | | | | | | | [...] [place] | | | | | | [address] | | | | | | [phone] | | | | | | | [...] | | | | | [place] [address] | | | | | | [phone] | | | | | | | | | | | | Auzl Yeboah, | | | | | | MD [address] | | | | | | [place] | | | | | | [place] [address] | | | | | | [phone] | | | | | | | [...] | | | | | | [place] [address] | | | | | | [phone] | | | | | | | | +--------+ + + + + documented as of this encounter Visit Diagnoses Not on filedocumented in this encounter"
--- OUTSIDE RECORDS SUMMARY | ~2020-02-18 | XMS | Encounter Summary ---
Demographics + + + | Address | [address] | | | [place] [address] | + + + | Home Phone [...] Team Providers + +------+ + | Care Training Intern Name | Role | Phone | + [...] | [facility] | [place] [address] | Chronic pain of both | | | | [address] [place], | [phone] | ears; Chronic | | | | [place] [address] | | congestion of | | | | [phone] | | paranasal sinus; | | | [...] | | | | | [place] [address] | | | | | | [phone] | | | | | | | | | | | | Julia Fisher, | | | | | | PT | | +--------+ + + + + | 02/18/ | Appointment | Rehabilitation | Erika Ernst, | | | 2019 | | | DO [address] | | | | | | [place] [address] | | | | | | [phone] | | | | | | | | | | | | Genesis Ayon, OT | | +--------+ + + + + | 02/25/ | Office | Primary Care | Erika Ernst, | | | 2019 | Visit | | DO [address] | | | | | | [place] [address] | | | | | | [phone] | | | | | | | [...] | | | | | [place] [address] | | | | | | [phone] | | | | | | | | +--------+ + + + + | 02/27/ | Appointment | Radiology | Dhara, | | | 2019 | | | [address] | | | | | | [address] [facility] [place], | | | | | | [place] [address] | | | | | | [phone] | | | | | | | | +--------+ + + + + | 03/04/ | Appointment | Rehabilitation | Genesis Ayon OT | | 2019 | | | | | +--------+ + + + + | 03/09/ | Office | Orthopedic Surgery | Jeffrey Gandhi, | | | 2019 | Visit | | [address] [facility] | | | | | | [place] [address] | | | | | | [phone] | | | | | | | [...] [place] | | | | | | [address] | | | | | | [phone] | | | | | | | [...] | | | | | [place] [address] | | | | | | [phone] | | | | | | | | | | | | Azul Yeboah, | | | | | | [address] | | | | | | [place] | | | | | | [place] [address] | | | | | | [phone] | | | | | | | [...] | | | | | | [place] [address] | | | | | | [phone] | | | | | | | [...]
--- OUTSIDE RECORDS SUMMARY | ~2020-02-18 | XMS | Encounter Summary ---
Demographics + + + | Address | [address] | | | [place] [address] | + + + | Home Phone [...] + +------+ + | Care Quality Assurance Clerk Name | Role | Phone | [...] | [place] | [place] [address] | | | | | [address] | [phone] | | | | | [phone] | | | +--------+ + + + [...] | | | | | [place] [address] | | | | | | [phone] | | | | | | | | | | | | Julia Fisher, | | | | | | PT | | +--------+ + + + + | 02/18/ | Appointment | Rehabilitation | Erika Ernst, | | | 2019 | | | DO [address] | | | | | | [place] [address] | | | | | | [phone] | | | | | | | | | | | | Genesis Ayon OT | | +--------+ + + + + | 02/25/ | Office | Primary Care | Erika Ernst, | | | 2019 | Visit | | DO [address] | | | | | | [place] [address] | | | | | | [phone] | | | | | | | [...] | | | | | [place] [address] | | | | | | [phone] | | | | | | | | +--------+ + + + + | 02/27/ | Appointment | Radiology | Dhara, | | | 2019 | | | [address] | | | | | | 4TH [facility], | | | | | | [place] [address] | | | | | | [phone] | | | | | | | [...] [place] | | | | | | [place] [address] | | | | | | [phone] | | | | | | | [...] [place] | | | | | | [address] | | | | | | [phone] | | | | | | | [...] | | | | | [place] [address] | | | | | | [phone] | | | | | | | | | | | | Azul Yeboah, | | | | | | MD [address] | | | | | | [place] | | | | | | [place] [address] | | | | | | [phone] | | | | | | | [...] | | | | | | [place] [address] | | | | | | [phone] | | | | | | | | +--------+ + + + + documented as of this encounter Visit Diagnoses Not on filedocumented in this encounter"
--- OUTSIDE RECORDS SUMMARY | ~2020-02-18 | XMS | Encounter Summary ---
Demographics + + + | Address | [address] | | | [place] [address] | + + + | Home Phone [...] Providers + +------+ + | Care Clinical Engineer Name | Role | Phone | [...] Medication Refill | | 2017 | | [facility] | [address] | | | | | [facility] [address] | [place] [address] | | | | | [address] [place], | [phone] | | | | | [place] [address] | | | | | | [phone] | | | +--------+--------+ + + + [...] | | | | | [place] [address] | | | | | | [phone] | | | | | | | | | | | | Julia Fisher, | | | | | | PT | | +--------+ + + + + | 02/18/ | Appointment | Rehabilitation | Erika Ernst, | | | 2019 | | | DO [address] [place] | | | | | | [place] [address] | | | | | | [phone] | | | | | | | | | | | | Genesis Ayon OT | | +--------+ + + + + | 02/25/ | Office | Primary Care | Erika Ernst, | | | 2019 | Visit | | DO [address] [place] | | | | | | [place] [address] | | | | | | [phone] | | | | | | | [...] | | | | | [place] [address] | | | | | | [phone] | | | | | | | | +--------+ + + + + | 02/27/ | Appointment | Radiology | Dhara, | | | 2019 | | | [address] | | | | | | 4TH [facility], | | | | | | [place] [address] | | | | | | [phone] | | | | | | | [...] | | | | | [place] [address] | | | | | | [phone] | | | | | | | [...] [place] | | | | | | [address] | | | | | | [phone] | | | | | | | [...] | | | | | [place] [address] | | | | | | [phone] | | | | | | | | | | | | Azul Yeboah, | | | | | | MD [address] | | | | | | [place] | | | | | | [place] [address] | | | | | | [phone] | | | | | | | [...] | | | | | | [place] [address] | | | | | | [phone] | | | | | | | | +--------+ + + + + documented as of this encounter Visit Diagnoses Not on filedocumented in this encounter"
--- OUTSIDE RECORDS SUMMARY | ~2020-02-18 | XMS | Encounter Summary ---
Demographics + + + | Address | [address] | | | [place] [address] | + + + | Home Phone [...] Providers + +------+ + | Care School Aide Name | Role | Phone | + +------+ + PCP | Unavailable | + +------+ + Encounter Details +--------+ + + + + | Date | Type | Department | Care Team | Description | +--------+ + + + + | 11/29/ | [facility] | [facility] | Conversion | | | 2012 | Encounter | [facility] | Transaction, | | | | | [facility] | Provider Unknown | | | | | 4TH [facility], | | | | | | [place] [address] | | | | | | [phone] | | | +--------+ + + + [...] | | | | | [place] [address] | | | | | | [phone] | | | | | | | | | | | | Julia Fisher, | | | | | | PT | | +--------+ + + + + | 02/18/ | Appointment | Rehabilitation | Erika Ernst, | | | 2019 | | | DO [address] | | | | | | [place] [address] | | | | | | [phone] | | | | | | | | | | | | Genesis Ayon OT | | +--------+ + + + + | 02/25/ | Office | Primary Care | Erika Ernst, | | | 2019 | Visit | | DO [address] | | | | | | [place] [address] | | | | | | [phone] | | | | | | | [...] | | | | | [place] [address] | | | | | | [phone] | | | | | | | | +--------+ + + + + | 02/27/ | Appointment | Radiology | Dhara, | | | 2019 | | | [address] | | | | | | [facility]TH [facility], | | | | | | [place] [address] | | | | | | [phone] | | | | | | | [...] [place] | | | | | | [place] [address] | | | | | | [phone] | | | | | | | [...] [place] | | | | | | [address] | | | | | | [phone] | | | | | | | [...] | | | | | [place] [address] | | | | | | [phone] | | | | | | | | | | | | Azul Yeboah, | | | | | | MD [address] | | | | | | [place] | | | | | | [place] [address] | | | | | | [phone] | | | | | | | [...] | | | | | | [place] [address] | | | | | | [phone] | | | | | | | | +--------+ + + + + documented as of this encounter Visit Diagnoses Not on filedocumented in this encounter"
--- OUTSIDE RECORDS SUMMARY | ~2020-02-18 | XMS | Encounter Summary ---
Demographics + + + | Address | [address] | | | [place] [address] | + + + | Home Phone [...] Team Providers + +------+ + | Care Door Paneler Name | Role | Phone | + [...] | [facility] [address] | [place] [address] | Vitamin D | | | | [address] [place], | [phone] | deficiency; Thy[place] | | | | [place] [address] | | disorder screening | | | | [phone] | | | +--------+ + + + [...] | | | | | [place] [address] | | | | | | [phone] | | | | | | | | | | | | Julia Fisher, | | | | | | PT | | +--------+ + + + + | 02/18/ | Appointment | Rehabilitation | Erika Ernst, | | | 2019 | | | DO [address] [place] | | | | | | [place] [address] | | | | | | [phone] | | | | | | | | | | | | Genesis Ayon OT | | +--------+ + + + + | 02/25/ | Office | Primary Care | Erika Ernst, | | | 2019 | Visit | | DO [address] [place] | | | | | | [place] [address] | | | | | | [phone] | | | | | | | [...] | | | | | [place] [address] | | | | | | [phone] | | | | | | | | +--------+ + + + + | 02/27/ | Appointment | Radiology | Dhara, | | | 2019 | | | [address] | | | | | | 4TH [facility], | | | | | | [place] [address] | | | | | | [phone] | | | | | | | [...] | | | | | [place] [address] | | | | | | [phone] | | | | | | | [...] [place] | | | | | | [address] | | | | | | [phone] | | | | | | | [...] | | | | | [place] [address] | | | | | | [phone] | | | | | | | | | | | | Azul Yeboah, | | | | | | MD [address] | | | | | | [place] | | | | | | [place] [address] | | | | | | [phone] | | | | | | | [...] | | | | | | [place] [address] | | | | | | [phone] | | | | | | | [...] + + | [place] [facility] | [address] | [place] | [phone] | | HOSPITAL [facility]ORY | | [address] | | + + + + + [...] + + | [place] [facility] | [address] | [place] | [phone] | | [facility] | | [address] | | | [facility] LAB | [...] + + | [place] [facility] | [address] | [place] | [phone] | | HOSPITAL [facility]ORY | | [address] | | + + + + + [...] + + | [place] [facility] | [address] | [place], [place] | [phone] | | HOSPITAL LAB[facility]ORY | | [address] | | + + + + + [...] + + | [place] [facility] | [address] | [place], [place] | [phone] | | [facility] | | [address] | | | [facility] | | | | + + [...]
--- OUTSIDE RECORDS SUMMARY | ~2020-02-18 | XMS | Encounter Summary ---
Demographics + + + | Address | [address] | | | [place] [address] | + + + | Home Phone [...] Team Providers + +------+ + | Care Clerical And Office Support Workers Name | Role | Phone | + [...] | [address] [place], [place] | [place] [address] | | | | | [address] | [phone] | | | | | [phone] | | | +--------+ + + + [...] | | | | | [place] [address] | | | | | | [phone] | | | | | | | | | | | | Julia Fisher, | | | | | | PT | | +--------+ + + + + | 02/18/ | Appointment | Rehabilitation | Erika Ernst, | | | 2019 | | | DO [address] | | | | | | [place] [address] | | | | | | [phone] | | | | | | | | | | | | Genesis Ayon OT | | +--------+ + + + + | 02/25/ | Office | Primary Care | Erika Ernst, | | | 2019 | Visit | | DO [address] | | | | | | [place] [address] | | | | | | [phone] | | | | | | | [...] | | | | | [place] [address] | | | | | | [phone] | | | | | | | | +--------+ + + + + | 02/27/ | Appointment | Radiology | Dhara, | | | 2019 | | | [address] | | | | | | 4TH [facility], | | | | | | [place] [address] | | | | | | [phone] | | | | | | | [...] | | | [place] [address] | | | | | | [phone] | | | | | | | [...] [place] | | | | | | [address] | | | | | | [phone] | | | | | | | [...] | | | | | [place] [address] | | | | | | [phone] | | | | | | | | | | | | Azul Yeboah, | | | | | | MD [address] | | | | | | [place] | | | | | | [place] [address] | | | | | | [phone] | | | | | | | [...] | | | | | | [place] [address] | | | | | | [phone] | | | | | | | | +--------+ + + + + documented as of this encounter Visit Diagnoses Not on filedocumented in this encounter"
--- OUTSIDE RECORDS SUMMARY | ~2020-02-18 | XMS | Encounter Summary ---
Demographics + + + | Address | [address] | | | [place] [address] | + + + | Home Phone [...] Team Providers + +------+ + | Care Sap Bi Developer Name | Role | Phone | [...] | | | of left | [place] [address] | [place], [place] | | | | | ankle, | Phone: | [address] | | | | | subsequent | [phone] | Phone: | | | | | encounter | Fax: | [phone] | | | | | Procedures | [phone] | Fax: | | | | | [place] | | [phone] | +--------+ + + + + + [...] | | | of left | [place] [address] | [address] | | | | | ankle, | Phone: | Phone: | | | | | subsequent | [phone] | [phone] | | | | | encounter | Fax: | Fax: | | | | | Procedures | [phone] | [phone] | | | | | MRI Ankle [...] | [facility] [address] | [place] [address] | ligament of left | | | | [address] [place], | [phone] | ankle, subsequent | | | | [place] [address] | | encounter (Primary | | | | [phone] | | Dx) | +--------+---------+ + + [...] slipped on twigs in the parking lo [employer] at work on May 31, 2018 and [...] | 2019 | | | DO [address] | | | | | | [facility], [place] [address] | | | | | | [phone] | | | | | | | | | | | | Julia Fisher, | | | | | | PT | | +--------+ + + + + | 02/18/ | Appointment | Rehabilitation | Erika Ernst, | | | 2019 | | | DO [address] [place] | | | | | | [place] [address] | | | | | | [phone] | | | | | | | | | | | | Genesis Ayon OT | | +--------+ + + + + | 02/25/ | Office | Primary Care | Erika Ernst, | | | 2019 | Visit | | DO [address] [place] | | | | | | [place] [address] | | | | | | [phone] | | | | | | | [...] | | | | | [place] [address] | | | | | | [phone] | | | | | | | | +--------+ + + + + | 02/27/ | Appointment | Radiology | Dhara, | | | 2019 | | | [address] | | | | | | [address] [place], | | | | | | [place] [address] | | | | | | [phone] | | | | | | | [...] | | | | | [place] [address] | | | | | | [phone] | | | | | | | [...] [place] | | | | | | [address] | | | | | | [phone] | | | | | | | [...] | | | | | [place] [address] | | | | | | [phone] | | | | | | | | | | | | Azul Yeboah, | | | | | | MD [address] | | | | | | [place] | | | | | | [place] [address] | | | | | | [phone] | | | | | | | [...] | | | | | | [place] [address] | | | | | | [phone] | | | | | | | [...]
--- OUTSIDE RECORDS SUMMARY | ~2020-02-18 | XMS | Encounter Summary ---
Demographics + + + | Address | [address] | | | [place] [address] | + + + | Home Phone [...] Providers + +------+ + | Care Cotton Factor Name | Role | Phone | + +------+ + PCP | Unavailable | + +------+ + Encounter Details +--------+ + + + + | Date | Type | Department | Care Team | Description | +--------+ + + + + | 10/05/ | [facility] | Lb Mirza | | | 2016 | Encounter | HOSPITAL EMERG[facility]Y | MD [address] | | | | | CENTER [address] | [facility] | | | | | [address] [place] | [email or web address] [place] [address] | | | | | [address] | [phone] | | | | | [phone] | | | +--------+ + + + [...] | | | | | [place] [address] | | | | | | [phone] | | | | | | | | | | | | Julia Fisher, | | | | | | PT | | +--------+ + + + + | 02/18/ | Appointment | Rehabilitation | Erika Ernst, | | | 2019 | | | DO [address] | | | | | | [place] [address] | | | | | | [phone] | | | | | | | | | | | | Genesis Ayon, SUSAN | | +--------+ + + + + | 02/25/ | Office | Primary Care | Erika Ernst, | | | 2019 | Visit | | DO [address] | | | | | | [place] [address] | | | | | | [phone] | | | | | | | [...] | | | | | [place] [address] | | | | | | [phone] | | | | | | | | +--------+ + + + + | 02/27/ | Appointment | Radiology | Dhara, | | | 2019 | | | [address] | | | | | | 4TH [facility], | | | | | | [place] [address] | | | | | | [phone] | | | | | | | | +--------+ + + + + | 03/04/ | Appointment | Rehabilitation | Genesis Ayon OT | | | 2019 | | | | | +--------+ + + + + | 03/09/ | Office | Orthopedic Surgery | Jeffrey Gandhi, | | | 2019 | Visit | | [address] [facility] | | | | | | [place] [address] | | | | | | [phone] | | | | | | | [...] [place] | | | | | | [address] | | | | | | [phone] | | | | | | | [...] | | | | | [place] [address] | | | | | | [phone] | | | | | | | | | | | | Azul Yeboah, | | | | | | MD [address] | | | | | | [place] | | | | | | [place] [address] | | | | | | [phone] | | | | | | | [...] | | | | | | [place] [address] | | | | | | [phone] | | | | | | | | +--------+ + + + + documented as of this encounter Visit Diagnoses Not on filedocumented in this encounter"
--- OUTSIDE RECORDS SUMMARY | ~2020-02-18 | XMS | Encounter Summary ---
Demographics + + + | Address | [address] | | | [place] [address] | + + + | Home Phone [...] Team Providers + +------+ + | Care Cardiac Catheterization Technologist Name | Role | Phone | [...] Follow-up | | 2019 | | [facility] | DO Jackelyn Garcia | | | | | [address] [place] | [address] [place] | | | | | [place], [place] | [place] | | | | | [address] | [address] | | | | | [phone] | [phone] | | | | | | | [...] | 2019 | | | DO [address] [facility] | | | | | | [place] [address] | | | | | | [phone] | | | | | | | | | | | | Julia Fisher, | | | | | | PT | | +--------+ + + + + | 02/18/ | Appointment | Rehabilitation | Erika Ernst, | | | 2019 | | | DO [address] [place] | | | | | | [place] [address] | | | | | | [phone] | | | | | | | | | | | | Genesis Ayon OT | | +--------+ + + + + | 02/25/ | Office | Primary Care | Erika Ernst, | | | 2019 | Visit | | DO [address] [place] | | | | | | [place] [address] | | | | | | [phone] | | | | | | | [...] | | | | | [place] [address] | | | | | | [phone] | | | | | | | | +--------+ + + + + | 02/27/ | Appointment | Radiology | Dhara, | | | 2019 | | | [address] | | | | | | 4TH [facility], | | | | | | [place] [address] | | | | | | [phone] | | | | | | | [...] [place] | | | | | | [place] [address] | | | | | | [phone] | | | | | | | [...] [place] | | | | | | [address] | | | | | | [phone] | | | | | | | [...] | | | | | [place] [address] | | | | | | [phone] | | | | | | | | | | | | Azul Yeboah, | | | | | | MD [address] | | | | | | [place] | | | | | | [place] [address] | | | | | | [phone] | | | | | | | [...] | | | | | | [place] [address] | | | | | | [phone] | | | | | | | | +--------+ + + + + documented as of this encounter Visit Diagnoses Not on filedocumented in this encounter"
--- OUTSIDE RECORDS SUMMARY | ~2020-02-18 | XMS | Encounter Summary ---
Demographics + + + | Address | [address] | | | [place] [address] | + + + | Home Phone [...] Team Providers + +------+ + | Care Websphere Commerce Architect Name | Role | Phone | + +------+ + PCP | Unavailable | + +------+ + Encounter Details +--------+ + + + + | Date | Type | Department | Care Team | Description | +--------+ + + + + | 10/27/ | [facility] | [place] [facility] | Erika Ernst, | | | 2015 | Encounter | [facility] | DO [address] | | | | | MEDICAL [facility] [address] | [place] [address] | | | | | [address] [place], | [phone] | | | | | [place] [address] | | | | | | [phone] | | | +--------+ + + + [...] | | | | | [place] [address] | | | | | | [phone] | | | | | | | | | | | | Julia Fisher, | | | | | | PT | | +--------+ + + + + | 02/18/ | Appointment | Rehabilitation | Erika Ernst, | | | 2019 | | | DO [address] [place] | | | | | | [place] [address] | | | | | | [phone] | | | | | | | | | | | | Genesis Ayon OT | | +--------+ + + + + | 02/25/ | Office | Primary Care | Erika Ernst, | | | 2019 | Visit | | DO [address] [place] | | | | | | [place] [address] | | | | | | [phone] | | | | | | | [...] | | | | | [place] [address] | | | | | | [phone] | | | | | | | | +--------+ + + + + | 02/27/ | Appointment | Radiology | Dhara, | | | 2019 | | | [address] | | | | | | 4TH [facility], | | | | | | [place] [address] | | | | | | [phone] | | | | | | | | +--------+ + + + + | 03/04/ | Appointment | Rehabilitation | Genesis Ayon OT | | | 2019 | | | | | +--------+ + + + + | 03/09/ | Office | Orthopedic Surgery | Jeffrey Gandhi, | | | 2019 | Visit | | [address] [facility] | | | | | | [place] [address] | | | | | | [phone] | | | | | | | [...] [place] | | | | | | [address] | | | | | | [phone] | | | | | | | [...] | | | | | [place] [address] | | | | | | [phone] | | | | | | | | | | | | Azul Yeboah, | | | | | | MD [address] | | | | | | [place] | | | | | | [place] [address] | | | | | | [phone] | | | | | | | [...] | | | | | | [place] [address] | | | | | | [phone] | | | | | | | | +--------+ + + + + documented as of this encounter Visit Diagnoses Not on filedocumented in this encounter"
--- OUTSIDE RECORDS SUMMARY | ~2020-02-18 | XMS | Encounter Summary ---
Demographics + + + | Address | [address] | | | [place] [address] | + + + | Home Phone [...] Team Providers + +------+ + | Care Cardiology Fellow Name | Role | Phone | + [...] by | | 2019 | Visit | [facility] | [employer] [address] | swallowing (Primary | | | | [facility] [address] | [place] [address] | Dx) | | | [address] [place], | [phone] | | | | | [place] [address] | | | | | | [phone] | | | +--------+---------+ + + + [...] | | | | | [place] [address] | | | | | | [phone] | | | | | | | | | | | | Julia Fisher, | | | | | | PT | | +--------+ + + + + | 02/18/ | Appointment | Rehabilitation | Erika Ernst, | | | 2019 | | | DO [address] | | | | | | [place] [address] | | | | | | [phone] | | | | | | | | | | | | [facility] | | +--------+ + + + + | 02/25/ | Office | Primary Care | Erika Ernst, | | | 2019 | Visit | | DO [address] | | | | | | [place] [address] | | | | | | [phone] | | | | | | | [...] | | | | | | [place] [address] | | | | | | [phone] | | | | | | | | +--------+ + + + + | 02/27/ | Appointment | Radiology | Dhara, | | | 2019 | | | [address] | | | | | | [address] [facility], | | | | | | [place] [address] | | | | | | [phone] | | | | | | | | +--------+ + + + + | 03/04/ | Appointment | Rehabilitation | [facility] | | | 2019 | | | | | +--------+ + + + + | 03/09/ | Office | Orthopedic Surgery | Jeffrey Gandhi, | | | 2019 | Visit | | [address] | | | | | | [place] [address] | | | | | | [phone] | | | | | | | [...] [place] | | | | | | [address] | | | | | | [phone] | | | | | | | [...] | | | | | [place] [address] | | | | | | [phone] | | | | | | | | | | | | Azul Yeboah, | | | | | | MD [address] | | | | | | [place] | | | | | | [place] [address] | | | | | | [phone] | | | | | | | [...] | | | | | | [place] [address] | | | | | | [phone] | | | | | | | | +--------+ + + + + documented as of this encounter Visit Diagnoses + + | Diagnosis | + + | Pain aggravated by swallowing - Primary | + + documented in this encounter
--- OUTSIDE RECORDS SUMMARY | ~2020-02-18 | XMS | Encounter Summary ---
Demographics + + + | Address | [address] | | | [place] [address] | + + + | Home Phone [...] Providers + +------+ + | Care Regional Office Coordinator Name | Role | Phone | [...] 03/20/ | Telephone | [place] [facility] | HuertaVeronica, | Lab Results | | 2018 | | [facility] | [facility] | | | | | [facility] [address] | | | | | | [address] [facility] [place], | | | | | | [place] [address] | | | | | | [phone] | | | +--------+ + + + [...] | | 2019 | | | DO [facility] | | | | | | [place] [address] | | | | | | [phone] | | | | | | | | | | | | Julia Fisher, | | | | | | PT | | +--------+ + + + + | 05/20/ | Appointment | Rehabilitation | Erika Ernst, | | | 2019 | | | DO [address] | | | | | | [place] [address] | | | | | | [phone] | | | | | | | | | | | | Genesis Ayon OT | | +--------+ + + + + | 02/25/ | Office | Primary Care | Erika Ernst, | | | 2019 | Visit | | DO [address] | | | | | | [place] [address] | | | | | | [phone] | | | | | | | [...] | | | | | [place] [address] | | | | | | [phone] | | | | | | | | +--------+ + + + + | 02/27/ | Appointment | Radiology | Dhara, | | | 2019 | | | [address] | | | | | | [address] [facility] [place], | | | | | | [place] [address] | | | | | | [phone] | | | | | | | [...] | | | | | [place] [address] | | | | | | [phone] | | | | | | | [...] [place] | | | | | | [address] | | | | | | [phone] | | | | | | | [...] | | | | | [place] [address] | | | | | | [phone] | | | | | | | | | | | | Azul Yeboah, | | | | | | MD [address] | | | | | | [place] | | | | | | [place] [address] | | | | | | [phone] | | | | | | | [...] | | | | | | [place] [address] | | | | | | [phone] | | | | | | | | +--------+ + + + + documented as of this encounter Visit Diagnoses Not on filedocumented in this encounter"
--- OUTSIDE RECORDS SUMMARY | ~2020-02-18 | XMS | Encounter Summary ---
Demographics + + + | Address | [address] | | | [place] [address] | + + + | Home Phone [...] Team Providers + +------+ + | Care Felting Machine Operator Helper Name | Role | Phone | + +------+ + | Erika Ernst DO | PCP | | + +------+ + Reason for Visit +--------+ + | Reason | Comments | +--------+ + | Other | Asthma flare up x 1 day/cold x 5 days | +--------+ + Encounter Details +--------+---------+ + + + | Date | Type | Department | Care Team | Description | +--------+---------+ + + + | 07/01/ | Office | [place] [facility] | Alem Guerrero, | Moderate persistent | | 2019 | Visit | [facility] | ASSEMBLY PRESS OPERATOR-IMMIGRATION LAW SPECIALIST [address] | asthma with acute | | | | [facility] [address] | [address] | exacerbation | | | | [address] [place], | [place] [address] | (Primary Dx) | | | | [place] [address] | [phone] | | | | | [phone] | | | +--------+---------+ + + + [...] + + + | Blood Pressure | 133/99 | 07/01/2019 11:52 AM | | | | | PDT | | + + + + + | Pulse | 107 | 07/01/2019 11:52 AM | | | | | PDT | | + + + + + | Temperature | 36.7 C (98.1 F) | 07/01/2019 11:52 AM | | | | | PDT | | + + + + + | Respiratory Rate | 18 | 07/01/2019 11:52 AM | | | | | PDT | | + + + + + | Oxygen Saturation | 96% | 07/01/2019 11:52 AM | | | | | PDT [...] Instructions Patient Instructions Alem Guerrero APRN-FNP - 07/01/2019 10:30 AM PDTTake the steroids daily as prescribed Continue your scheduled and as needed inhalers Follow-up with your marble supervisor as planned/needed If your symptoms persist or you develop fever, chest pain or shortness of breath follow up immediately for reevaluation. documented in this encounter Progress Notes Alem Guerrero, ASSEMBLY PRESS OPERATOR-IMMIGRATION LAW SPECIALIST - 07/01/2019 10:30 AM PDTFormatting of this note might be diffe rent from the original. Subjective: Patient ID: Andrea Suh is a 29 y.o. female. Chief Complaint Patient presents with Other Asthma flare up x 1 day/cold x 5 days HPI Here today with complaints of wheezing, shortness of breath and chest tightness onset this morning when she woke up. She used her albuterol nebulizer which helped a little. She has nam d a mild cold for five days. She denies a fever/chills, n/v/d Says she saw her marble supervisor last and he took her off the Qvar and started her on Br io which she has been using as prescribed. She called Dr. Pruett today and he instructed her to restart her Qvar in addition to her Brio. Smoking history: Has never smoked Allergies Allergen Reactions Latex Rash Lexapro [Escitalopram] Palpitations Deblitane [Norethindrone] Hydrocodone Hives Uncoded Nonscreenable Allergen Other (See Comments) Other reaction(s): Proclivity to C-diff with certain antibiotics Adhesive & Tape Rash Patient Active Problem List Diagnosis Date Noted POA Iron deficiency 05/20/2019 Unknown Moderate persistent asthma with acute exacerbation 04/12/2019 [...] twice a day if neede d 1 azithromycin (ZITHROMAX) 250 mg tablet Take 2 tablets by mouth on day 1, and 1 tablet b y mouth every day 6 tablet 0 beclomethasone (QVAR) 80 mcg/puff inhaler Inhale 2 puffs into the lungs 2 times daily. 2 Inhaler 11 busPIRone (BUSPAR) 7.5 MG tablet Take 7.5 mg six times a day 180 tablet 11 Cetirizine HCl (ZYRTEC PO) Take by mouth. Once a week Cholecalciferol (VITAMIN D3) 51727 units TABS Take 1 tablet by mouth [...] Nasal route Daily as needed for Allergies. levothyroxine (SYNTHROID) 50 mcg tablet Take 50 [...] file prior to visit. Objective: BP (!) 133/99 | Pulse 107 | Temp 36.7 C (98.1 F) (Temporal) | Resp 18 | SpO2 96% Physical Exam Constitutional: She is oriented to person, place, and time. She appears well-developed and well-nourished. No distress. Does not appear acutely unwell HENT: Mouth/Throat: Oropharynx is clear and moist. Neck: Normal range of motion. Neck supple. Cardiovascular: Normal rate, regular rhythm and normal heart sounds. Pulmonary/Chest: Effort normal. No respiratory distress. She has no rales. Scattered tight wheezes Lymphadenopathy: She has no cervical adenopathy. Neurological: She is alert and oriented to person, place, and time. Skin: Skin is warm and dry. No rash noted. No erythema. No pallor. No results found for this or any previous visit (from the past 24 hour(s)). None Assessment: 1. Moderate persistent asthma with acute exacerbation - predniSONE (DELTASONE) 20 mg tablet; Take 2 tablets by mouth Daily for 5 days. Dispense: 10 tablet; Refill: 0 - albuterol-ipratropium 2.5-0.5 mg/3 mL nebulizer solution 3 mL Plan: Moderate persistent asthma with acute exacerbation duoneb in clinic today with verbalized improvement of symptoms Take the steroids daily as prescribed Continue your scheduled and as needed inhalers Follow-up with your marble supervisor as planned/needed If your symptoms persist or you develop fever, chest pain or shortness of breath follow up immediately for reevaluation. Return if symptoms worsen or fail to improve, for with pcp. Electronically signed by: Alem Guerrero APRN-FN07/01/201913:18 [facility] Note: Part of this report was transcribed using voice recognition software. Every effort wa s made to ensure accuracy. However, inadvertent computerized orchid transplanter errors may be pre sent. Linh rubin [...] | | | | | [place] [address] | | | | | | [phone] | | | | | | | | | | | | Julia Fisher, | | | | | | PT | | +--------+ + + + + | 02/18/ | Appointment | Rehabilitation | Erika Ernst, | | | 2019 | | | DO [address] | | | | | | [place] [address] | | | | | | [phone] | | | | | | | | | | | | Genesis Ayon OT | | +--------+ + + + + | 02/25/ | Office | Primary Care | Erika Ernst, | | | 2019 | Visit | | [address] [place] [address] | | | | | | [place] [address] | | | | | | [phone] | | | | | | | [...] | | | | | [place] [address] | | | | | | [phone] | | | | | | | | +--------+ + + + + | 02/27/ | Appointment | Radiology | Dhara, | | | 2019 | | | [address] | | | | | | [address] [place], | | | | | | [place] [address] | | | | | | [phone] | | | | | | | | +--------+ + + + + | 03/04/ | Appointment | Rehabilitation | Genesis Ayon OT | | 2019 | | | | | +--------+ + + + + | 03/09/ | Office | Orthopedic Surgery | Jeffrey Gandhi, | | | 2019 | Visit | | [place] [address] [facility] | | | | | | [place] [address] | | | | | | [phone] | | | | | | | [...] [place] | | | | | | [address] | | | | | | [phone] | | | | | | | [...] | | | | | [place] [address] | | | | | | [phone] | | | | | | | | | | | | Azul Yeboah, | | | | | | [address] | | | | | | [place] | | | | | | [place] [address] | | | | | | [phone] | | | | | | | [...] | | | | | | [place] [address] | | | | | | [phone] | | | | | | | | +--------+ + + + + documented as of this encounter Visit Diagnoses + + | Diagnosis | + + | Moderate persistent asthma with acute exacerbation - Primary | + + documented in this encounter Administered Medications + +--------+ +-------+------+ + | Medication Order | MAR | Action | Dose | Rate | Site | | | Action | Date | | | | + +--------+ +-------+------+ + | albuterol-ipratropium 2.5-0.5 | Given | 07/01/20 | 3 mLs | | Other | | mg/3 mL nebulizer solution 3 mL | | 19 1:06 | | | (Comment | | 3 mL, Nebulization, ONCE, Mon | | PM PDT | | | ) | | 07/01/19 at 1245, For 1 dose | | | | | | + +--------+ +-------+------+ + +---+---+ | | | +---+---+ documented in this encounter"
--- OUTSIDE RECORDS SUMMARY | ~2020-02-18 | XMS | Encounter Summary ---
Demographics + + + | Address | [address] | | | [place] [address] | + + + | Home Phone [...] Team Providers + +------+ + | Care Ux Developer Name | Role | Phone | [...] Leukocytosis, | | 2019 | Visit | [facility] | SOLUTION COORDINATOR [address] | unspecified type | | | | [facility] | [place] [address] | (Primary Dx) | | | | [address] [place], | [phone] | | | | | [place] [address] | | | | | | [phone] | | | +--------+---------+ + + + [...] FNP - 02/20/2019 4:00 PM PDTDiscussed previous [facility] visit Will repeat CBC and CMP in [...] - Comprehensive Metabolic Panel; Future Discussed previous [facility] visit Will repeat CBC and CMP in [...] Dr Noriega - after being seen by [facility]. Pt had elevated WBC when evaluated i [facility]. Pt reports she had being experiencing upper respiratory and has history of asthma. Pt reports she has recently completed antibiotics regimen. Pt reports Dr Noriega was planning to do surgery to his R wrist - but has delayed due to elevated WBC. Pt reports she flew in [facility] this morning and also reports she has [...] mouth. Once a week Cholecalciferol (VITAMIN D3) 98766 units TABS Take 1 tablet by mouth [...] | | | | | [place] [address] | | | | | | [phone] | | | | | | | | | | | | uJlia Fisher, | | | | | | PT | | +--------+ + + + + | 02/18/ | Appointment | Rehabilitation | Erika Ernst, | | | 2019 | | | DO [address] | | | | | | [place] [address] | | | | | | [phone] | | | | | | | | | | | | Genesis Ayon, OT | | +--------+ + + + + | 02/25/ | Office | Primary Care | Erika Ernst, | | | 2019 | Visit | | DO [address] | | | | | | [place] [address] | | | | | | [phone] | | | | | | | [...] | | | | | [place] [address] | | | | | | [phone] | | | | | | | | +--------+ + + + + | 02/27/ | Appointment | Radiology | Dhara, | | | 2019 | | | [address] | | | | | | [address] [place], | | | | | | [place] [address] | | | | | | [phone] | | | | | | | | +--------+ + + + + | 03/04/ | Appointment | Rehabilitation | Genesis Ayon OT | | | 2019 | | | | | +--------+ + + + + | 03/09/ | Office | Orthopedic Surgery | Jeffrey Gandhi, | | | 2019 | Visit | | [address] [facility] | | | | | | [place] [address] | | | | | | [phone] | | | | | | | [...] [place] | | | | | | [address] | | | | | | [phone] | | | | | | | [...] | | | | | [place] [address] | | | | | | [phone] | | | | | | | | | | | | Azul Yeboah, | | | | | | MD [address] | | | | | | [place] | | | | | | [place] [address] | | | | | | [phone] | | | | | | | | +--------+ + + + + | 04/08/ | Appointment | Nutrition | Janel Webster | | | 2019 | | | G, RD | | +--------+ + + + + | 05/21/ | Office | Neurology | Dhara, | | | 2019 | Visit | | [address]INE [address] | | | | | | [address] [place], | | | | | | [place] [address] | | | | | | [phone] | | | | | | | [...] | mL/min/1.73m2 | [facility] | | | [facility] | [facility] | | | | mL/min/[id number] than | | LABORATORY | | | [...] + + | [place] [facility] | [address] | [place] | [phone] | | H[facility]ITAL [facility]ORY | | [address] | | + + + + + documented in this encounter Visit Diagnoses + + | Diagnosis | + + | Leukocytosis, unspecified type - Primary | + + documented in this encounter
--- OUTSIDE RECORDS SUMMARY | ~2020-02-18 | XMS | Encounter Summary ---
Demographics + + + | Address | [address] | | | [place] [address] | + + + | Home Phone [...] Team Providers + +------+ + | Care Pocket Flap Creasing Machine Operator Name | Role | Phone [...] | | [place], [place] | [place] [address] | | | | | [address] | [phone] | | | | | [phone] | | | +--------+ + + + [...] | | | | | [place] [address] | | | | | | [phone] | | | | | | | | | | | | Julia Fisher, | | | | | | PT | | +--------+ + + + + | 02/18/ | Appointment | Rehabilitation | Erika Ernst, | | | 2019 | | | DO [address] | | | | | | [place] [address] | | | | | | [phone] | | | | | | | | | | | | Genesis Ayon, SUSAN | | +--------+ + + + + | 02/25/ | Office | Primary Care | Erika Ernst, | | | 2019 | Visit | | DO [address] | | | | | | [place] [address] | | | | | | [phone] | | | | | | | [...] | | | | | [place] [address] | | | | | | [phone] | | | | | | | | +--------+ + + + + | 02/27/ | Appointment | Radiology | Dhara, | | | 2019 | | | DWAINE [address] | | | | | | [address] [place], | | | | | | [place] [address] | | | | | | [phone] | | | | | | | | +--------+ + + + + | 03/04/ | Appointment | Rehabilitation | Genesis Ayon OT | | | 2019 | | | | | +--------+ + + + + | 03/09/ | Office | Orthopedic Surgery | Jeffrey Gandhi, | | | 2019 | Visit | | [address] [facility] | | | | | | [place] [address] | | | | | | [phone] | | | | | | | [...] [place] | | | | | | [address] | | | | | | [phone] | | | | | | | [...] | | | | | [place] [address] | | | | | | [phone] | | | | | | | | | | | | Azul Yeboah, | | | | | | MD [address] | | | | | | [place] | | | | | | [place] [address] | | | | | | [phone] | | | | | | | | +--------+ + + + + | 04/08/ | Appointment | Nutrition | Janel Webster | | | 2019 | | | [place], [place]A | | +--------+ + + + + | 05/21/ | Office | Neurology | Dhara, | | | 2019 | Visit | | Cody, FUSING FURNACE LOADER [address] | | | | | | [address] [place], | | | | | | [place] [address] | | | | | | [phone] | | | | | | | [...] definite | | acute finding identified. Job#: [id number] Read By: ANJELICA CHAMBERS MD | | [...]
--- OUTSIDE RECORDS SUMMARY | ~2020-02-18 | XMS | Encounter Summary ---
Demographics + + + | Address | [address] | | | [place] [address] | + + + | Home Phone [...] Team Providers + +------+ + | Care Registration Officer Name | Role | Phone | [...] foot surgery | [place] | [address] | | | | | Swelling | [place], [place] | Phone: | | | | | of foot | [address] | [phone] | | | | | joint, right | | Fax: | | | | | Procedures | | [phone] | | | | | MRI Foot [...] Services | Surgery | Sprain of | Reika A, DO | Orthopedic | | | Required | | right hand, | [address] | [address] | | | | | subsequent | [place], | [place] | | | | | encounter | [place] [address] | [place] | | | | | Procedures | Phone: | [address] | | | | | [place] | [phone] | Phone: | | | | | | Fax: | [phone] | | | | | | [phone] | Fax: | | | | | | | [phone] | +--------+ + + + + + [...] surgery; Swelling of | | | | [address] | | foot joint, right | | | | [phone] | | | +--------+---------+ + + + [...] pads that you can purchase at most [employer], a wet washcloth or towel that has [...] extra support to your arch. Developed by [employer]. Published by [employer]. Copyright 2014 [employer] and/or one of its subsidiaries. All rights [...] made to ensure accuracy. However, inadvertent computerized mill dresser errors may be pre sent. documented in thi s encounter Plan of Treatment +--------+ + + + + | Date | Type | Specialty | Care Team | Description | +--------+ + + + + | 02/18/ | Appointment | Rehabilitation | Erika Ernst, | | 2019 | | | DO | | | | | | [place] [address] | | | | | | [phone] | | | | | | | | | | | | Julia Fisher, | | | | | | PT | | +--------+ + + + + | 02/18/ | Appointment | Rehabilitation | Erika Ernst, | | | 2019 | | | DO [address] [place] | | | | | | [place] [address] | | | | | | [phone] | | | | | | | | | | | | Genesis Ayon OT | | +--------+ + + + + | 02/25/ | Office | Primary Care | Erika Ernst, | | | 2019 | Visit | | DO [address] | | | | | | [place] [address] | | | | | | [phone] | | | | | | | [...] | | | | | [place] [address] | | | | | | [phone] | | | | | | | | +--------+ + + + + | 02/27/ | Appointment | Radiology | Dhara, | | | 2019 | | | [address] | | | | | | [address] [facility], | | | | | | [place] [address] | | | | | | [phone] | | | | | | | [...] | | | | | | [place] [address] | | | | | | [phone] | | | | | | | [...] [place] | | | | | | [address] | | | | | | [phone] | | | | | | | [...] | | | | | [place] [address] | | | | | | [phone] | | | | | | | | | | | | Azul Yeboah, | | | | | | MD [address] | | | | | | [place] | | | | | | [place] [address] | | | | | | [phone] | | | | | | | | +--------+ + + + + | 04/08/ | Appointment | Nutrition | Janel Webster | | 2019 | | | [place], RD | | +--------+ + + + + | 05/21/ Office | Neurology | Dhara, | | | 2019 | Visit | | [address]WAINE [address] | | | | | [address] [place], | | | | | | [place] [address] | | | | | | [phone] | | | | | | | [...] [facility] | | Jeffrey Gandhi MD, [facility], 09/19/19 describes | | | history of Kidner procedure performed Burlison 2016. The findings on | | | [...] medial navicula. Note from Jeffrey Gandhi MD, [facility], 09/19/19 | | describes history of Kidner procedure performed [place] 2015. The findings on the current | [...] medial navicula. Note from Jeffrey Gandhi MD, [facility], 09/19/19 describes history of Kidner procedure performed B[place]ison 2015. The findings on the current study [...]
--- OUTSIDE RECORDS SUMMARY | ~2020-02-18 | XMS | Encounter Summary ---
Demographics + + + | Address | [address] | | | [place] [address] | + + + | Home Phone [...] Team Providers + +------+ + | Care Mailmaster Name | Role | Phone | + [...] | [place], [place] | [place] [address] | | | | | [address] | [phone] | | | | | [phone] | | | +--------+ + + + [...] this encounter Patient Instructions Patient Instructions Olga Mkceon RN - 03/28/2019 9:00 AM PDTRICE extremity. [...] | | | | | [place] [address] | | | | | | [phone] | | | | | | | | | | | | Julia Fisher, | | | | | | PT | | +--------+ + + + + | 02/18/ | Appointment | Rehabilitation | Erika Ernst, | | | 2019 | | | DO [address] [place] | | | | | | [place] [address] | | | | | | [phone] | | | | | | | | | | | | Genesis Ayon OT | | +--------+ + + + + | 02/25/ | Office | Primary Care | Erika Ernst, | | | 2019 | Visit | | DO [address] [place] [address] | | | | | | [place] [address] | | | | | | [phone] | | | | | | | [...] | | | | | [place] [address] | | | | | | [phone] | | | | | | | | +--------+ + + + + | 02/27/ | Appointment | Radiology | Dhara, | | | 2019 | | | [address]WAINE [address] | | | | | | [address] [facility] [place], | | | | | | [place] [address] | | | | | | [phone] | | | | | | | [...] | | | | | [place] [address] | | | | | | [phone] | | | | | | | [...] [place] | | | | | | [address] | | | | | | [phone] | | | | | | | [...] | | | | | [place] [address] | | | | | | [phone] | | | | | | | | | | | | Azul Yeboah, | | | | | | MD [address] | | | | | | [place] | | | | | | [place] [address] | | | | | | [phone] | | | | | | | [...] | | | | | | [place] [address] | | | | | | [phone] | | | | | | | | +--------+ + + + + documented as of this encounter Visit Diagnoses + + | Diagnosis | + + | Torn tendon - Primary Unspecified site of sprain and strain | + + documented in this encounter"
--- OUTSIDE RECORDS SUMMARY | ~2020-02-18 | XMS | Encounter Summary ---
Demographics + + + | Address | [address] | | | [place] [address] | + + + | Home Phone [...] Team Providers + +------+ + | Care Barking Machine Feeder Name | Role | Phone [...] | | | [facility]ICAL [facility] [address] | [facility] [place] [address] | | | | | [address] [place], | [phone] | | | | | [place] [address] | | | | | | [phone] | | | +--------+ + + + [...] | | | | | [place] [address] | | | | | | [phone] | | | | | | | | | | | | Julia Fisher, | | | | | | PT | | +--------+ + + + + | 02/18/ | Appointment | Rehabilitation | Erika Ernst, | | | 2019 | | | DO [address] [place] | | | | | | [place] [address] | | | | | | [phone] | | | | | | | | | | | | Genesis Ayon OT | | +--------+ + + + + | 02/25/ | Office | Primary Care | Erika Ernst, | | | 2019 | Visit | | DO [address] [place] | | | | | | [place] [address] | | | | | | [phone] | | | | | | | [...] | | | | | [place] [address] | | | | | | [phone] | | | | | | | | +--------+ + + + + | 02/27/ | Appointment | Radiology | Dhara, | | | 2019 | | | DWAINE [address] | | | | | | [address] [facility] [place], | | | | | | [place] [address] | | | | | | [phone] | | | | | | | [...] [place]ORE | | | | | | [place] [address] | | | | | | [phone] | | | | | | | [...] [place] | | | | | | [address] | | | | | | [phone] | | | | | | | [...] | | | | | [place] [address] | | | | | | [phone] | | | | | | | | | | | | Azul Yeboah, | | | | | | MD [address] | | | | | | [place] | | | | | | [place] [address] | | | | | | [phone] | | | | | | | [...] | | | | | | [place] [address] | | | | | | [phone] | | | | | | | | +--------+ + + + + documented as of this encounter Visit Diagnoses Not on filedocumented in this encounter"
--- OUTSIDE RECORDS SUMMARY | ~2020-02-18 | XMS | Encounter Summary ---
Demographics + + + | Address | [address] | | | [place] [address] | + + + | Home Phone [...] + +------+ + | Care Parcel Post Weigher Name | Role | Phone | + [...] (? re: | | 2017 | | [facility] | DO [address] | physical therapy) | | | | [facility] | [place] [address] | | | | [address] [place], | [phone] | | | | | [place] [address] | | | | | | [phone] | | | +--------+ + + + [...] | | | | | [place] [address] | | | | | | [phone] | | | | | | | | | | | | Julia Fisher, | | | | | | PT | | +--------+ + + + + | 02/18/ | Appointment | Rehabilitation | Erika Ernst, | | | 2019 | | | DO [address] | | | | | | [place] [address] | | | | | | [phone] | | | | | | | | | | | | [facility] | | +--------+ + + + + | 02/25/ | Office | Primary Care | Erika Ernst, | | | 2019 | Visit | | DO [address] | | | | | | [place] [address] | | | | | | [phone] | | | | | | | [...] | | | | | [place] [address] | | | | | | [phone] | | | | | | | | +--------+ + + + + | 02/27/ | Appointment | Radiology | Dhara, | | | 2019 | | | [address] | | | | | | [address] [facility] [place], | | | | | | [place] [address] | | | | | | [phone] | | | | | | | [...] [place] | | | | | | [place] [address] | | | | | | [phone] | | | | | | | [...] [place] | | | | | | [address] | | | | | | [phone] | | | | | | | [...] | | | | | [place] [address] | | | | | | [phone] | | | | | | | | | | | | Azul Yeboah, | | | | | | MD [address] | | | | | | [place] | | | | | | [place] [address] | | | | | | [phone] | | | | | | | [...] | | [address] [place], | | | | | | [place] [address] | | | | | | [phone] | | | | | | | | +--------+ + + + + documented as of this encounter Visit Diagnoses Not on filedocumented in this encounter"
--- OUTSIDE RECORDS SUMMARY | ~2020-02-18 | XMS | Encounter Summary ---
Demographics + + + | Address | [address] | | | [place] [address] | + + + | Home Phone [...] Providers + +------+ + | Care Mill Roll Operator Name | Role | Phone | [...] | [place], [place] | [place] [address] | | | | | [address] | [phone] | | | | | [phone] | | | +--------+ + + + [...] | | | | | [place] [address] | | | | | | [phone] | | | | | | | | | | | | Julia Fisher, | | | | | | PT | | +--------+ + + + + | 02/18/ | Appointment | Rehabilitation | Erika Ernst, | | | 2019 | | | DO [address] | | | | | | [place] [address] | | | | | | [phone] | | | | | | | | | | | | [facility] | | +--------+ + + + + | 02/25/ | Office | Primary Care | Erika Ernst, | | | 2019 | Visit | | DO [address] | | | | | | [place] [address] | | | | | | [phone] | | | | | | | [...] | | | | | [place] [address] | | | | | | [phone] | | | | | | | | +--------+ + + + + | 02/27/ | Appointment | Radiology | Dhara, | | | 2019 | | | [address] | | | | | | [facility]TH [facility], | | | | | | [place] [address] | | | | | | [phone] | | | | | | | | +--------+ + + + + | 03/04/ | Appointment | Rehabilitation | [facility] | | | 2019 | | | | | +--------+ + + + + | 03/09/ | Office | Orthopedic Surgery | Jeffrey Gandhi, | | | 2019 | Visit | | [address] | | | | | | [place] [address] | | | | | | [phone] | | | | | | | [...] [place] | | | | | | [address] | | | | | | [phone] | | | | | | | [...] | | | | | [place] [address] | | | | | | [phone] | | | | | | | | | | | | Azul Yeboah, | | | | | | MD [address] | | | | | | [place] | | | | | | [place] [address] | | | | | | [phone] | | | | | | | [...] | | | | | | [place] [address] | | | | | | [phone] | | | | | | | | +--------+ + + + + documented as of this encounter Visit Diagnoses Not on filedocumented in this encounter"
--- OUTSIDE RECORDS SUMMARY | ~2020-02-18 | XMS | Encounter Summary ---
Demographics + + + | Address | [address] | | | [place] [address] | + + + | Home Phone [...] Providers + +------+ + | Care Legal Recruiter Name | Role | Phone | + +------+ + | Erika Ernst DO | PCP | | + +------+ + Reason for Visit + + + | Reason | Comments | + + + | Procedure | EMG BUE | + + + Consultation (Routine) +--------+ [...] | Services | | Neuropathy | C, FISHER POUND NET OR TRAP [address] | Luis Rubin MD | | | Required | | of right | [address], | [address] | | | | | upper | [place] [address] | [address], [place] [address] [place] | | | | | extremity | [place], [place] | [place] | | | | | Procedures | [address] | [address] Phone: | | | | | EMG | Phone: | [phone] | | | | | | [phone] | Fax: | | | | | | Fax: | [phone] | | | | | | [phone] | | +--------+ + + + + + Encounter Details +--------+ + + + + | Date | Type | Department | Care Team | Description | +--------+ + + + + | 08/17/ | Procedure | [place] [facility] | Luis Nichole MD | Bilateral carpal | | 2019 | visit | [facility] | [address] | tunnel syndrome | | | | CLINIC [address] | [place] | (Primary Dx); | | | | [address] [place], | [address] | Numbness | | | | [place] [address] | | | | | | [phone] | | | +--------+ + + + [...] + + + | Blood Pressure | 146/99 | 08/17/2019 9:40 AM | | | | | PST | | + + + + + | Pulse | 65 | 08/17/2019 9:40 AM | | | | | PST | | + + + + + | Temperature | - | - | | + + + + + | Respiratory Rate | 18 | 08/17/2019 9:40 AM | | | | | PST | | + + + + + | Oxygen Saturation | 100% | 08/17/2019 9:40 AM | | | | | PST | | + + + + + | Inhaled Oxygen | - | - | | | Concentration | | | | + + + + + | Weight | 175.5 kg (387 lb) | 08/17/2019 9:40 AM | | | | | PST | | + + + + + | Height | 177.8 cm (5' 10") | 08/17/2019 9:40 AM | | | | | PST | | + + + + + | Body Mass Index | 55.53 | 08/17/2019 9:40 AM | | | | | PST | | + + + + + documented in this encounter Plan of Treatment +--------+ + + + + | Date | Type | Specialty | Care Team | Description | +--------+ + + + + | 02/18/ | Appointment | Rehabilitation | Erika Ernst, | | | 2019 | | | DO | | | | | | [place] [address] | | | | | | [phone] | | | | | | | | | | | | Julia Fisher, | | | | | | PT | | +--------+ + + + + | 02/18/ | Appointment | Rehabilitation | Erika Ernst, | | | 2019 | | | DO [address] | | | | | | [place] [address] | | | | | | [phone] | | | | | | | | | | | | [facility] | | +--------+ + + + + | 02/25/ | Office | Primary Care | Erika Ernst, | | | 2019 | Visit | | DO [address] | | | | | | [place] [address] | | | | | | [phone] | | | | | | | [...] | | | | | [place] [address] | | | | | | [phone] | | | | | | | | +--------+ + + + + | 02/27/ | Appointment | Radiology | Dhara, | | | 2019 | | | [address] | | | | | | [address] [place], | | | | | | [place] [address] | | | | | | [phone] | | | | | | | | +--------+ + + + + | 03/04/ | Appointment | Rehabilitation | [facility] | | | 2019 | | | | | +--------+ + + + + | 03/09/ | Office | Orthopedic Surgery | Jeffrey Gandhi, | | 2019 | Visit | | [address] [place] | | | | | | [place] [address] | | | | | | [phone] | | | | | | | [...] [place] | | | | | | [address] | | | | | | [phone] | | | | | | | [...] | | | | | [place] [address] | | | | | | [phone] | | | | | | | | | | | | Azul Yeboah, | | | | | | MD [address] | | | | | | [place] | | | | | | [place] [address] | | | | | | [phone] | | | | | | | [...] | | | | | [address] [place], | | | | | | [place] [address] | | | | | | [phone] | | | | | | | | +--------+ + + + + documented as of this encounter Procedures + +--------+ + + + | Procedure Name | Priori | Date/Time | Associated Diagnosis | Comments | | | ty | | | | + +--------+ + + + | EMG STUDY | Routin | 08/17/2019 | Bilateral carpal | Results for this | | | e | 9:45 AM | tunnel syndrome | procedure are in the | | | | PST | Numbness | results section. | + +--------+ + + + | EMG STUDY | Routin | 08/17/2019 | Bilateral carpal | Results for this | | | e | 9:45 AM | tunnel syndrome | procedure are in the | | | | PST | Numbness | results section. | + +--------+ + + + documented in this encounter Results EMG Study- Upper Extremity (08/17/2019 9:45 AM PST) + + + | Narrative | Performed At | + + + | Luis Nichole MD 08/17/2019 10:39 AM See scanned chart: | | | NCS/EMG of the extremities demonstrated mild to moderate bilateral | | | median nerve entrapment across wrists. No electrophysiologic | | | evidence of ulnar neuropathy across the elbows or cervical | | | radiculopathy | | + + + documented in this encounter Visit Diagnoses + + | Diagnosis | + + | Bilateral carpal tunnel syndrome - Primary Carpal tunnel syndrome | + + | Numbness Disturbance of skin sensation | + + documented in this encounter
--- OUTSIDE RECORDS SUMMARY | ~2020-02-18 | XMS | Encounter Summary ---
Demographics + + + | Address | [address] | | | [place] [address] | + + + | Home Phone [...] Providers + +------+ + | Care Auto Damage Adjuster Name | Role | Phone | [...] Asthma | | 2019 | | [facility] | DO [address] | | | | | [facility]ICAL [facility] [address] | [place] [address] | | | | | [address] [place], | [phone] | | | | | [place] [address] | | | | | | [phone] | | | +--------+ + + + [...] | | | | | [place] [address] | | | | | | [phone] | | | | | | | | | | | | Julia Fisher, | | | | | | PT | | +--------+ + + + + | 02/18/ | Appointment | Rehabilitation | Erika Ernst, | | | 2019 | | | DO [address] | | | | | | [place] [address] | | | | | | [phone] | | | | | | | | | | | | [facility] | | +--------+ + + + + | 02/25/ | Office | Primary Care | Erika Ernst, | | | 2019 | Visit | | DO [address] | | | | | | [place] [address] | | | | | | [phone] | | | | | | | [...] | | | | | [place] [address] | | | | | | [phone] | | | | | | | | +--------+ + + + + | 02/27/ | Appointment | Radiology | Dhara, | | | 2019 | | | [address] | | | | | | [facility] [facility] | | | | | | [place] [address] | | | | | | [phone] | | | | | | | [...] [place] | | | | | | [place] [address] | | | | | | [phone] | | | | | | | [...] [place] | | | | | | [address] | | | | | | [phone] | | | | | | | [...] | | | | | [place] [address] | | | | | | [phone] | | | | | | | | | | | | Azul Yeboah, | | | | | | MD [address] | | | | | | [place] | | | | | | [place] [address] | | | | | | [phone] | | | | | | | [...] | | | | | | [place] [address] | | | | | | [phone] | | | | | | | | +--------+ + + + + documented as of this encounter Visit Diagnoses Not on filedocumented in this encounter"
--- OUTSIDE RECORDS SUMMARY | ~2020-02-18 | XMS | Encounter Summary ---
Demographics + + + | Address | [address] | | | [place] [address] | + + + | Home Phone [...] + +------+ + | Care Automotive Service Porter Name | Role | Phone | + [...] CLINIC [address] | [facility] [place] [address] | | | | | [address] [facility], | [phone] | | | | | [place] [address] | | | | | | [phone] | | | +--------+ + + + [...] | | | | | [place] [address] | | | | | | [phone] | | | | | | | | | | | | Julia Fisher, | | | | | | PT | | +--------+ + + + + | 02/18/ | Appointment | Rehabilitation | Erika Ernst, | | | 2019 | | | DO [address] | | | | | | [place] [address] | | | | | | [phone] | | | | | | | | | | | | [facility] | | +--------+ + + + + | 02/25/ | Office | Primary Care | Erika Ernst, | | | 2019 | Visit | | DO [address] | | | | | | [place] [address] | | | | | | [phone] | | | | | | | [...] | | | | | [place] [address] | | | | | | [phone] | | | | | | | | +--------+ + + + + | 02/27/ | Appointment | Radiology | Dhara, | | | 2019 | | | [address] | | | | | | [facility] | | | | | | [place] [address] | | | | | | [phone] | | | | | | | [...] [place] | | | | | | [place] [address] | | | | | | [phone] | | | | | | | [...] [place] | | | | | | [address] | | | | | | [phone] | | | | | | | [...] | | | | | [place] [address] | | | | | | [phone] | | | | | | | | | | | | Azul Yeboah, | | | | | | MD [address] | | | | | | [place] | | | | | | [place] [address] | | | | | | [phone] | | | | | | | [...] | | | | | | [place] [address] | | | | | | [phone] | | | | | | | | +--------+ + + + + documented as of this encounter Visit Diagnoses Not on filedocumented in this encounter"
--- OUTSIDE RECORDS SUMMARY | ~2020-02-18 | XMS | Encounter Summary ---
Demographics + + + | Address | [address] | | | [place] [address] | + + + | Home Phone [...] Team Providers + +------+ + | Care Stitch Bonding Machine Tender Name | Role | Phone [...] | | | MEDICAL [facility] [address] | [place] [address] | | | | | [address] [facility], | [phone] | | | | | [place] [address] | | | | | | [phone] | | | +--------+ + + + [...] | | | | | [place] [address] | | | | | | [phone] | | | | | | | | | | | | Julia Fisher, | | | | | | PT | | +--------+ + + + + | 02/18/ | Appointment | Rehabilitation | Erika Ernst, | | | 2019 | | | DO [address] | | | | | | [place] [address] | | | | | | [phone] | | | | | | | | | | | | [facility] | | +--------+ + + + + | 02/25/ | Office | Primary Care | Erika Ernst, | | | 2019 | Visit | | DO [address] | | | | | | [place] [address] | | | | | | [phone] | | | | | | | [...] | | | | | [place] [address] | | | | | | [phone] | | | | | | | | +--------+ + + + + | 02/27/ | Appointment | Radiology | Dhara, | | | 2019 | | | [address] | | | | | | 4TH [facility], | | | | | | [place] [address] | | | | | | [phone] | | | | | | | | +--------+ + + + + | 03/04/ | Appointment | Rehabilitation | [facility] | | | 2019 | | | | | +--------+ + + + + | 03/09/ | Office | Orthopedic Surgery | Jeffrey Gandhi, | | | 2019 | Visit | | [address] [facility] | | | | | | [place] [address] | | | | | | [phone] | | | | | | | [...] [place] | | | | | | [address] | | | | | | [phone] | | | | | | | [...] | | | | | [place] [address] | | | | | | [phone] | | | | | | | | | | | | Azul Yeboah, | | | | | | MD [address] | | | | | | [place] | | | | | | [place] [address] | | | | | | [phone] | | | | | | | [...] | | | | | | [place] [address] | | | | | | [phone] | | | | | | | | +--------+ + + + + documented as of this encounter Visit Diagnoses Not on filedocumented in this encounter"
--- OUTSIDE RECORDS SUMMARY | ~2020-02-18 | XMS | Encounter Summary ---
Demographics + + + | Address | [address] | | | [place] [address] | + + + | Home Phone [...] | | | to excess | [place] [address] | | | | | | calories | Phone: | | | | | | without | [phone] | | | | | | serious | Fax: | | | | | | comorbidity | [phone] | | | | | | with [...] | | | | | | | [facility] | | | | | | [...] + + + + | 03/15/ | Orders Only | [place] [facility] | Erika Ernst, | Class 3 severe | | 2018 | | [facility] | DO [address] | obesity due to | | | | MEDICAL CL[facility] [address] | [place] [address] | excess calories | | | | [address] [place], | [phone] | without serious | | | | [place] [address] | | comorbidity with | | | | [phone] | | body mass index | | | | | | (BMI) of 50.0 to | | | | | | 59.9 in adult (HCC) | | | | | | (Primary Dx); | | | | | | Essential | | | | | | hypertension | +--------+ + + + + Social [...] | | | | | [place] [address] | | | | | | [phone] | | | | | | | | | | | | Julia Fisher, | | | | | | PT | | +--------+ + + + + | 02/18/ | Appointment | Rehabilitation | Erika Ernst, | | | 2019 | | | DO [address] | | | | | | [place] [address] | | | | | | [phone] | | | | | | | | | | | | [facility] | | +--------+ + + + + | 02/25/ | Office | Primary Care | Erika Ernst, | | | 2019 | Visit | | DO [address] | | | | | | [place] [address] | | | | | | [phone] | | | | | | | [...] | | | | | [place] [address] | | | | | | [phone] | | | | | | | | +--------+ + + + + | 02/27/ | Appointment | Radiology | Dhara, | | | 2019 | | | [address] | | | | | | [facility] | | | | | | [place] [address] | | | | | | [phone] | | | | | | | | +--------+ + + + + | 03/04/ | Appointment | Rehabilitation | [facility] | | 2019 | | | | | +--------+ + + + + | 03/09/ | Office | Orthopedic Surgery | Jeffrey Gandhi, | | | 2019 | Visit | | [address] | | | | | | [place] [address] | | | | | | [phone] | | | | | | | [...] [place] | | | | | | [address] | | | | | | [phone] | | | | | | | [...] | | | | | [place] [address] | | | | | | [phone] | | | | | | | | | | | | Azul Yeboah, | | | | | | MD [address] | | | | | | [place] | | | | | | [place] [address] | | | | | | [phone] | | | | | | | [...] | | | | | | [place] [address] | | | | | | [phone] | | | | | | | [...] | | 59.9 in adult ([facility]) | | | | | | Essential | | | | | | hypertension | | + + +--------+ + + documented as of this encounter Visit Diagnoses + + | Diagnosis | + + | Class 3 severe obesity due to excess calories without serious comorbidity with body | | mass index (BMI) of 50.0 to 59.9 in adult ([facility]) - Primary | + + | Essential hypertension Unspecified essential hypertension | + + documented in this encounter"
--- OUTSIDE RECORDS SUMMARY | ~2020-02-18 | XMS | Encounter Summary ---
Demographics + + + | Address | [address] | | | [place] [address] | + + + | Home Phone [...] Team Providers + +------+ + | Care Gusset Folder Name | Role | Phone | [...] | [facility] [address] | [place] [address] | | | | | [address] [place], | [phone] | | | | | [place] [address] | | | | | | [phone] | | | +--------+ + + + [...] | | | | | [place] [address] | | | | | | [phone] | | | | | | | | | | | | Julia Fisher, | | | | | | PT | | +--------+ + + + + | 02/18/ | Appointment | Rehabilitation | Erika Ernst, | | | 2019 | | | DO [address] [place] | | | | | | [place] [address] | | | | | | [phone] | | | | | | | | | | | | [facility] | | +--------+ + + + + | 02/25/ | Office | Primary Care | Erika Ernst, | | | 2019 | Visit | | DO [address] [place] | | | | | | [place] [address] | | | | | | [phone] | | | | | | | [...] | | | | | [place] [address] | | | | | | [phone] | | | | | | | | +--------+ + + + + | 02/27/ | Appointment | Radiology | Dhara, | | | 2019 | | | [address] | | | | | | [address]TH [facility], | | | | | | [place] [address] | | | | | | [phone] | | | | | | | | +--------+ + + + + | 03/04/ | Appointment | Rehabilitation | [facility] | | | 2019 | | | | | +--------+ + + + + | 03/09/ | Office | Orthopedic Surgery | Jeffrey Gandhi, | | | 2019 | Visit | | [address] | | | | | | [place] [address] | | | | | | [phone] | | | | | | | [...] [place] | | | | | | [address] | | | | | | [phone] | | | | | | | [...] | | | | | [place] [address] | | | | | | [phone] | | | | | | | | | | | | Azul Yeboah, | | | | | | [address] | | | | | | [place] | | | | | | [place] [address] | | | | | | [phone] | | | | | | | [...] | | | | | | [place] [address] | | | | | | [phone] | | | | | | | | +--------+ + + + + documented as of this encounter Visit Diagnoses Not on filedocumented in this encounter"
--- OUTSIDE RECORDS SUMMARY | ~2020-02-18 | XMS | Encounter Summary ---
Demographics + + + | Address | [address] | | | [place] [address] | + + + | Home Phone [...] Team Providers + +------+ + | Care Painting Technician Name | Role | Phone | [...] Description | +--------+---------+ + + + | 12/23/ | Office | [place] [facility] | KleverKeitha Joie, | Asthma due to | | 2019 | Visit | [facility] | DO [address] | environmental | | | | [facility] | [place] [address] | allergies (Primary | | | | [address] [place], | [phone] | Dx); Anxiety; Iron | | | | [place] [address] | | deficiency | | | | [phone] | | | +--------+---------+ + + + [...] + + + | Blood Pressure | 134/82 | 12/24/2019 1:10 PM | | | | | PDT | | + + + + + | Pulse | 105 | 12/24/2019 1:10 PM | | | | | PDT | | + + + + + | Temperature | 37.3 C (99.1 F) | 12/24/2019 1:10 PM | | | | | PDT | | + + + + + | Respiratory Rate | 18 | 12/24/2019 1:10 PM | | | | | PDT | | + + + + + | Oxygen Saturation | 98% | 12/24/2019 1:10 PM | | | | | PDT | | + + + + + | Inhaled Oxygen | - | - | | | Concentration | | | | + + + + + | Weight | 161.9 kg (357 lb) | 12/24/2019 1:10 PM | | | | | PDT | | + + + + + | Height | 177.8 cm (5' 10") | 12/24/2019 1:10 PM | | | | | PDT | | + + + + + | Body Mass Index | 51.22 | 12/24/2019 1:10 PM | | | | | PDT | | + + + + + documented in this encounter Erika Kumar DO - 12/24/2019 1:20 PM PDTFormatting of this note might be different fro m the original. Subjective: Patient ID: Andrea Suh is a 29 y.o. female. Here to FU on the ear pain she was seen on 12/11 for by [facility]. She was given a 10 day course of augmentin. States she finished all 10 days. States still has ear pain. She has low grade te mp 99 but also has severe allergies. She is seeing Dr Wheeler tomorrow. She saw her pulmono logist in Nov for her asthma and continues her inhalers and they feel she needs to continue Tx for allergies for now that the allergy issue is a major contributor to her asthma. She nam s only been taking her Zyrtec once a week before allergy shot but I recommend today to take it daily. States insurance verify rep told her to ask me about taking this med QID but that would b e over use so for now recommend just start daily. She states today she has adopted a cat ravinder t was her Mom's and she is very allergic to cats but will not give it away. This may be keep ing things stirred up. No cough or wheeze at present. No chest pain or SOB. She has severe a nxiety but is seeing a mental health provider now in [place] and will continue FU. She i s off work currently and working from home. Non-smoker. Review of Systems As above Objective: BP 134/82 | Pulse 105 | Temp 37.3 C (99.1 F) (Oral) | Resp 18 | Ht 1.778 m (5' 10") | Wt (!) 161.9 kg (357 lb) | SpO2 98% | BMI 51.22 kg/m Physical Exam Constitutional: General: She is not in acute distress. Appearance: Normal appearance. HENT: Right Ear: Tympanic membrane and ear canal normal. Left Ear: Tympanic membrane and ear canal normal. Mouth/Throat: Pharynx: Oropharynx is clear. No oropharyngeal exudate or posterior oropharyngeal erythe ma. Eyes: General: Right eye: No discharge. Left eye: No discharge. Extraocular Movements: Extraocular movements intact. Conjunctiva/sclera: Conjunctivae normal. Pupils: Pupils are equal, round, and reactive to light. Cardiovascular: Rate and Rhythm: Normal rate and regular rhythm. Heart sounds: No murmur. Pulmonary: Effort: Pulmonary effort is normal. No respiratory distress. Breath sounds: Normal breath sounds. Lymphadenopathy: Cervical: No cervical adenopathy. Skin: General: Skin is warm and dry. Capillary Refill: Capillary refill takes less than 2 seconds. Neurological: General: No focal deficit present. Mental Status: She is alert and oriented to person, place, and time. Cranial Nerves: No cranial nerve deficit. Psychiatric: Thought Content: Thought content normal. Judgment: Judgment normal. Comments: anxious Assessment: 1. Asthma due to environmental allergies Persistent 2. Anxiety 3. Iron deficiency Plan: Start zyrtec daily and continue plans to see Dr Wheeler tomorrow. Continue FU with mental health provider and continue Buspar for anxiety. She will get the labs ordered today for rec heck on iron. CBC and ferritin. Continue daily exercise, stay hydrated, avoid caffeine and e at healthy diet. Practice the meditation and coping skills she has learned. documented in this en counter Plan of Treatment +--------+ + + + + | Date | Type | Specialty | Care Team | Description | +--------+ + + + + | 02/18/ | Appointment | Rehabilitation | Erika Ernst, | | 2019 | | | DO [address] | | | | | | [place] [address] | | | | | | [phone] | | | | | | | | | | | | Julia Fisher, | | | | | | PT | | +--------+ + + + + | 02/18/ | Appointment | Rehabilitation | Erika Ernst, | 2019 | | | DO [address] | | | | | | [place] [address] | | | | | | [phone] | | | | | | | | | | | | Genesis Ayon, OT | | +--------+ + + + + | 02/25/ | Office | Primary Care | Erika Ernst, | | | 2019 | Visit | | DO [address] | | | | | | [place] [address] | | | | | | [phone] | | | | | | | [...] | | | | | [place] [address] | | | | | | [phone] | | | | | | | | +--------+ + + + + | 02/27/ | Appointment | Radiology | Dhara, | | 2019 | | | [address]WA[address] [place], | | | | | | [place] [address] | | | | | | [phone] | | | | | | | [...] | | | | | [place] [address] | | | | | | [phone] | | | | | | | [...] [place] | | | | | | [address] | | | | | | [phone] | | | | | | | [...] | | | | | [place] [address] | | | | | | [phone] | | | | | | | | | | | | Azul Yeboah, | | | | | | [address] | | | | | | [place] [place] | | | | | | [place] [address] | | | | | | [phone] | | | | | | | [...] | | | | | | [place] [address] | | | | | | [phone] | | | | | | | | +--------+ + + + + documented as of this encounter Visit Diagnoses + + | Diagnosis | + + | Asthma due to environmental allergies - Primary | + + | Anxiety Anxiety state, unspecified | + + | Iron deficiency Other disorders of iron metabolism | + + documented in this encounter
--- OUTSIDE RECORDS SUMMARY | ~2020-02-18 | XMS | Encounter Summary ---
Demographics + + + | Address | [address] | | | [place] [address] | + + + | Home Phone [...] Team Providers + +------+ + | Care Religious Leader Name | Role | Phone | [...] + | 10/31/ | Telephone | [place] [facility] | Erika Ernst, | Medication Refill | | 2019 | | [facility] | [address] | | | | | [facility] [address] | [facility] [place] [address] | | | | [address] [facility], | [phone] | | | | | [place] [address] | | | | | | [phone] | | | +--------+ + + + [...] | | | | | [place] [address] | | | | | | [phone] | | | | | | | | | | | | Julia Fisher, | | | | | | PT | | +--------+ + + + + | 02/18/ | Appointment | Rehabilitation | Erika Ernst, | | | 2019 | | | DO [address] | | | | | | [place] [address] | | | | | | [phone] | | | | | | | | | | | | Genesis Ayon OT | | +--------+ + + + + | 02/25/ | Office | Primary Care | Erika Ernst, | | | 2019 | Visit | | DO [address] | | | | | | [place] [address] | | | | | | [phone] | | | | | | | [...] | | | | | [place] [address] | | | | | | [phone] | | | | | | | | +--------+ + + + + | 02/27/ | Appointment | Radiology | Dhara, | | | 2019 | | | [address] | | | | | | [facility] [facility], | | | | | | [place] [address] | | | | | | [phone] | | | | | | | [...] | | | | | [place] [address] | | | | | | [phone] | | | | | | | [...] [place] | | | | | | [address] | | | | | | [phone] | | | | | | | [...] | | | | | [place] [address] | | | | | | [phone] | | | | | | | | | | | | Azul Yeboah, | | | | | | MD [address] | | | | | | [place] | | | | | | [place] [address] | | | | | | [phone] | | | | | | | [...] | | | | | | [place] [address] | | | | | | [phone] | | | | | | | | +--------+ + + + + documented as of this encounter Visit Diagnoses Not on filedocumented in this encounter"
--- OUTSIDE RECORDS SUMMARY | ~2020-02-18 | XMS | Encounter Summary ---
Demographics + + + | Address | [address] | | | [place] [address] | + + + | Home Phone [...] + +------+ + | Care Director Of Direct Marketing Name | Role | Phone | [...] | | | of left | [place] [address] | [place] [address] | | | | | ankle, | Phone: | Phone: | | | | | initial | [phone] | [phone] | | | | | encounter | Fax: | Fax: | | | | | Procedures | [phone] | [phone] | | | | | PT TREAT [...] [address] [place] | [place] [address] | encounter (Primary | | | | [place], [place] | [phone] | Dx) | | | | [address] | | | | | | [phone] | Nick Barrios I, PT | | [...] Szymanski, PT - 10/25/2018 2:47 PM PST [facility] [address] [place] [address] Discharge Summary Date: 10/25/2018 Patient Name: Andrea [...] reports of muscle fatigue an d requiring PRENATAL GENETIC COUNSELOR with grab bar in order to maintain [...] [facility] in order to return [...] PT - 10/25/2018 2: 45 PM PST [facility] PT [address] [place] [address] Physical Therapy Daily Treatment Note Date: 10/25/2018 [...] L ankle ROM today. Due to reaching [facility] with improvement, patient is appropriate for discharge [...] in favor of SL heel raise with PRENATAL GENETIC COUNSELOR. ONGOING: S LS on even surface 3x30 [...] | | | | | [place] [address] | | | | | | [phone] | | | | | | | | | | | | Julia Fisher, | | | | | | PT | | +--------+ + + + + | 02/18/ | Appointment | Rehabilitation | Erika Ernst, | | | 2019 | | | DO [address] | | | | | | [place] [address] | | | | | | [phone] | | | | | | | | | | | | Genesis Ayon, OT | | +--------+ + + + + | 02/25/ | Office | Primary Care | Erika Ernst, | | | 2019 | Visit | | DO [address] | | | | | | [place] [address] | | | | | | [phone] | | | | | | | [...] | | | | | [place] [address] | | | | | | [phone] | | | | | | | | +--------+ + + + + | 02/27/ | Appointment | Radiology | Dhara, | | 2019 | | | [address] | | | | | [address] [place], | | | | | | [place] [address] | | | | | | [phone] | | | | | | | [...] ST | | | | | | [place] [address] | | | | | | [phone] | | | | | | | [...] [place] | | | | | | [address] | | | | | | [phone] | | | | | | | [...] | | | | | [place] [address] | | | | | | [phone] | | | | | | | | | | | | Azul Yeboah, | | | | | | [address] | | | | | | [place] [address] [place] | | | | | | [place] [address] | | | | | | [phone] | | | | | | | [...] | | | | | | [place] [address] | | | | | | [phone] | | | | | | | | +--------+ + + + + documented as of this encounter Visit Diagnoses + + | Diagnosis | + + | Sprain of left ankle, subsequent encounter - Primary | + + documented in this encounter
--- OUTSIDE RECORDS SUMMARY | ~2020-02-18 | XMS | Encounter Summary ---
Demographics + + + | Address | [address] | | | [place] [address] | + + + | Home Phone [...] Team Providers + +------+ + | Care Overhead Crane Inspector Name | Role | Phone | [...] | | | right ankle, | [place] [address] | [place] [address] | | | | | subsequent | Phone: | Phone: | | | | | encounter | [phone] | [phone] | | | | | Procedures | Fax: | Fax: | | | | | PT TREAT | [phone] | [phone] | + +--------+ + + + + [...] [address] | [place] [address] | ankle, subsequent | | | | [place], [place] | [phone] | encounter (Primary | | | | [address] | | Dx) | | | | [phone] | Julia Fihser, | | | | | | PT [...] tablet by | 90 | 0 | 03/20 | | | Fe) MG tablet | [...] mcg daily | 90 | 3 | //20 | | | (SYNTHROID) 50 mcg | [...] tablet by | 180 | 0 | /20/20 | | | (ANTIVERT) 25 mg | [...] 2 puffs into | | 0 | / | | | 1.25 MCG/ACT inhaler | [...] encounter Progress Notes Julia Fisher PT - 02/11/2020 3:00 PM PDT Musculoskeletal Program: Physical Therapy and Occupational Therapy (Required for all MSK conditions including pelvic pain & hand) RENDERING PROVIDER INFORMATION All sections must be completed Therapist First Name, Last Name Julia Fisher, PT Facility Name [facility] Billing Provider HENNY [id number] Provider Address, [facility] Code [address] [place] [address] Billing Provider SHIRA [id number] PATIENT INFORMATION All sections must be completed Patient Last Name, First Name ANDREA SUH Date of 1990 Mailing Address [address] [place] [address] Coverage Information Payor/Plan Subscriber Name Rel Member # Group # [facility]* ANDREA SUH CLA* [id number] [address] CLINICAL INFORMATION Primary ICD/Diagnosis Code: Encounter Diagnoses Code Name Primary? S93.421D Sprain of deltoid ligament of right ankle, subsequent encounter Yes Start Date of this Request: 02/12/2020 This Request is for: [] Initial Care (member not treated in the previous 60 days) [x] Continuing Care Date of initial eval: 11/21/2019 Date of Onset: 05/21/2019 Date of current findings: 0 Fabricating a splint/orthotic or developing a home exercise program only? no If yes, you are not required to complete remaining palmer Primary area treated: Please select only One [] Cervical / Upper Thoracic Spine [] Shoulder / Arm [] Elbow / Wrist / Forearm [] Lower Thoracic / Lumbosacral Spine [] Hip / Thigh [] Knee [x] Ankle / Foot / Leg [] Pelvic Pain / Incontinence [] Hand Secondary area treated: Please select only One [] Cervical / Upper Thoracic Spine [] Shoulder / Arm [] Elbow / Wrist / Forearm [] Lower Thoracic / Lumbosacral Spine [] Hip / Thigh [] Knee [] Ankle / Foot / Leg [] Pelvic Pain / Incontinence [] Hand Previous Treatment: Has the member been treated in the last 6 months? [] N/A [] Cervical / Upper Thoracic Spine [] Shoulder / Arm [] Elbow / Wrist / Forearm [] Lower Thoracic / Lumbosacral Spine [] Hip / Thigh [] Knee [] Ankle / Foot / Leg [] Pelvic pain / Incontinence [] Hand [] Neuro / Developmental Condition [] Lymphedema [] Vestibular Please ONLY complete the following section(s) based upon the TREATMENT AREA(s) selected abo ve. TREATMENT AREA: Cervical / Upper Thoracic Post-Surgical Care: [] Yes [] No If yes, Date of Surgery: Surgery Type: [] Decompression [] Discectomy [] Fusion [] Total Disc Replacement [] Fracture / ORIF [] Post-Mastectomy [] Other: Complete the following section for initial OR follow-up care as appropriate Initial Follow up Neck Disability Index score (NDI) % Current: Initial score: Weakness, sensory changes or radiating pain below elbow [] Yes [] No [] Yes [] No Number of episodes in past 3 yrs: [] 1 [] 2 [] 3 [] ?4 [] N/A N/A Has pt. responded as expected? N/A [] Yes [] No(indicate the reason below N/A [] Overdid activities/exercise causing increase in symptoms [] Progression of symptoms despite treatment [] Suffered a new injury resulting in significant change [] Unable to complete clinical visits/home program [] Patient is post-surgery with signs of infection TREATMENT AREA: Upper extremity (all conditions Side(s): [] Left [] Right [] Bilateral Post-Surgical Care: [] Yes [] No If yes, Date of Surgery: If yes indicate Type of Surgery from selection below: Shoulder/Arm [] Rotator Cuff [] Total Shoulder [] Biceps / SLAP repair [] Instability [] Fractu re/ORIF [] Sub-Acromial Decompression [] DI [] Post-mastectomy [] Other: Elbow/wrist Forearm/ Hand [] Tendon Repair / Debridement [] Ligament repair [] Fracture/ORIF [] Carpal Tunnel Release [] Other Nerve Procedure [] Joint Replacement [] Debridement/Infection [] DI [] Osteochondral/microfracture [] Post-mastectomy ? Other: Complete the following section for initial OR follow-up care as appropriate Functional Assessment Used: [] Quick Dash Initial Follow-Up Enter Score Current Score: Initial Score: More than 3 answers blank? [] Yes [] No N/A Shoulder / Elbow Does your patient demonstrate (choose all that apply) [] Loss of 15 degrees or more of elbo w extension [] Recurrent subluxation/dislocation of shoulder [] Measureable (less than 4/5) weakness of shoulder joint [] Shoulder flexion OR abduction less than 120 degrees [] Fracture of humeral head, greater tubercle, OR olecranon process [] Patient had post-surgery swelling of Grand 2 or more (moderate) Hand / Wrist Only Does your patient demonstrate (choose all that apply) [] Crush injury OR fracture of distal radius or olecranon [] Total active range of motion of the thumb less than 100 degrees [] Post-surgical or post-traumatic swelling of grade 2 or more (moderate) Patient responded as expected? N/A [] Yes [] No(indicate the reason below N/A [] Overdid activities/exercise causing increase in symptoms [] Progression of symptoms despite treatment [] Suffered a new injury resulting in significant change [] Unable to complete clinical visits/home program [] Patient is post-surgery with signs of infection TREATMENT AREA: Lower Thoracic / Lumbosacral Post-Surgical Care: [] Yes [] No If yes, Date of Surgery: If yes indicate Type of Surgery from selection below: Surgery Type: [] Decompression [] Discectomy [] Fusion [] Total Disc Replacement [] Fracture/NICOLE F [] Scoliosis/Deformity [] Other: Complete the following section for initial OR follow-up care as appropriate Functional Assessment Used: ? Oswestry (CHELA) Initial Follow-Up Enter Score Current Score: Initial Score: Number of episodes in the past 3 yrs [] 1 [] 2 [] 3 [] ?4 ? N/A N/A Does your patient demonstrate any of the following: [] Weakness, sensory changes or radiat ing symptoms below the knee [] Tenetti Gait/Balance score ? 24 OR Ponce ? 40 OR TUG ? 13.5 sec [] Measureable (less than 4/5) weakness of hip joint Patient responded as expected? N/A [] Yes [] No(indicate the reason below N/A [] Overdid activities/exercise causing increase in symptoms [] Progression of symptoms despite treatment [] Suffered a new injury resulting in significant change [] Unable to complete clinical visits/home program [] Patient is post-surgery with signs of infection TREATMENT AREA: Lower Extremity (All Conditions) Side(s): [] Left [x] Right [] Bilate ral Post-Surgical Care: [] Yes [x] No If yes, Date of Surgery: If yes indicate Type of Surgery from selection below: Knee [] Total/Partial Replacement, Fracture, ORIF [] Ligament Reconstruction [] Arthroscopy (not ligament) [] Osteochondral/micro fracture [] Quad/Patellar tendon repair [] DI [] Other: Hip [] Total/Partial Replacement, Resurfacing [] Arthroscopy [] Fracture/ORIF [] Open Bursectomy/Capsulectomy [] Other: Ankle/Foot/ Leg [] Total Ankle Replacement [] Achilles/Other tendon repair [] Bunion Surgery [] L igament Reconstruction [] Ligament Reconstruction [] Osteochondral/Microfracture [] Fracture/ORIF [] Other: Complete the following section for initial OR follow-up care as appropriate Functional Assessment Used: [x] LEFS Initial Follow-Up Enter Score Current Score: 62 Initial Score: 57 Does your patient demonstrate any of the following: [] Loss of 10 degree or more of knee e xtension OR less the 5 degrees ankle dorsiflexion [] Grade 3 or 4 laxity of the ankle or distal tibial-fibular joint [] Measureable (less than 4/5) weakness of hip joint [x] None of the above Patient responded as expected? N/A [] Yes [x] No(indicate the reason below N/A [x] Overdid activities/exercise causing increase in symptoms [x] Progression of symptoms despite treatment [] Suffered a new injury resulting in significant change [] Unable to complete clinical visits/home program [] Patient is post-surgery with signs of infection TREATMENT AREA: Pelvic Pain / Incontinence Complete the following section for initial OR follow-up care as appropriate Indicate which patient reported outcome score was used form the selection below. If no scor e select None Used ? None Used Initial Follow-Up [] PFDI-20 Summary Socre (0-300): Current Score: Initial Score: [] PFIQ-7 Summary Socre (0-300): Current Score: Initial Score: [] NIH-CPSO Summary Socre (0-43): Current Score: Initial Score: [] Oswestry (CHELA) (0-100 %) Current %: Initial %: Does your patient demonstrate: Iliac Crest OR Pubic symphysis asymmetry Positive provocative SI test OR Sacral torsion INABILITY to perform repetitive contraction of the pelvic floor muscles INABILITY to relax the pelvic floor muscles None of the above Patient responded as expected? N/A [] Yes [] No(indicate the reason below N/A [] Overdid activities/exercise causing increase in symptoms [] Progression of symptoms despite treatment [] Suffered a new injury resulting in significant change [] Unable to complete clinical visits/home program Julia Light PT - 02/11/2020 3:00 PM PDT [facility] PT [address] [place] [address] Physical Therapy Progress Assessment/Updated POC Date: 02/11/2020 Patient Information Patient Name: Andrea Suh Date of : 1990 Age: 29 y.o. Encounter Diagnoses Code Name Primary? S93.421D Sprain of deltoid ligament of right ankle, subsequent encounter Yes Date of Onset: 05/21/2019 Referring Provider: Erika Ernst DO Objective Pain Assessment: Pain Rating Pre Assessment: 5 Location: R bottom of foot/ankle 5/10 "average" Standardized Tests: Lower Extremity Functional Scale (LEFS) [...] 4 - No difficulty Walking a mile: 4 - No difficulty Going up or down 10 stairs (about 1 flight of stairs): 3 - A little bit of difficulty Standing for 1 hour: 3 - A little bit of difficulty Sitting for 1 hour: [...] difficulty Lower Extremity Functional Scale Score (Calculated): 62 Lower Extremity Functional Scale Goal: Patient will improve score on LEFS to >65 indicating decreased severity of disability Lower Extremity Functional Scale Goal Status: Improved to 62. Progressing toward goal Special Tests: Lower Extremity Tests Lower Extremity Tests Note: Unremarkable special tests. Palpation over navicular scar is te nder to touch but superficial scar moves well. Subtalar, talocrural joint mobility is normal . Mild discomfort with eversion tilt test indicating involved deltoid ligament but again no significant laxity noted. Today's Treatment Patient Name: Andrea Steeleit/: 1990/ Start Time: 1500 Stop time: 1543 Duration: 43 minutes Timed Treatment Codes: 36 minutes # of PT Visits: 6 Visit Summary: S: Pt returns 5-6 weeks following last visit having taken a break due to Cov id. Since then she's rolled her ankles again, having increased pain but overall "the same" I s noticing somewhat of a "tearing" pain along her plantar surface and up to the navicular sc ar. A: See progress note. Next Visit Information: On hold due to COVID19 -- Short foot/intrinsics, progress general a nkle/foot strengthening, STM, GT Therapy Interventions HEP: Calf raises with post tib bias, self STM with tennis ball, standing calf strentch, big toe disassociation exercises. hanging calf raises PT INTERVENTION 1: TE (34min) NuStep lvl 3-5 LE only w/u. Full re-eval of R ankle and updat ed POC. Review of HEP as above. SLS with band under ball of foot to improve intrinsics. PT r esisted ankle 4 way. koosh ball spanish moss picker to improve intrinsics. Assessment Progress summary 02/11/20: Andrea returns after 6 weeks break due to COVID-19 concerns. She denies any significant penn ge to status, still reporting R ankle pain with prolonged walking and hiking, pain with stai rs, and general limitation to activities she would like to pursue.Her LEFS indicates mild im provements in disability, but overall still limited with returning to more rigorous or consi stent activities. Given her additional medical issues including hx of surgery to her L ankle for posterior tib tendon, work-related left ankle injury, R knee pain, and extensive additi onal comorbidities including obesity, her overall prognosis is fair for full resolution of s ymptoms. Given her lingering impairments however, and continued ankle pain, therapy will foc us the last 3-4 visits on improving her home exercises program and guiding patient on pain m anagement techniques. Also spoke with PCP's nurse regarding recommendation of additional f/u with podiatry for lingering symptoms as other interventions may be warranted. Patient infor med of and in agreement with plan to progress and finalize home exercises program for anahi beltran. Progress Summary 01/01/20: Patient has been seen [...] dysfunction, and obesity. Rehabilitation potential: Patient demonstrates fair potential to achieve established goals and fair potential to achieve prior status to address the documented impairments by particip ating in skilled physical therapy services. Goals: Patient Reported Outcome Goals Lower Extremity Functional Scale Goal: Patient will improve score on LEFS to >65 indicating decreased severity of disability Lower Extremity Functional Scale Goal Status: Improved to 62. Progressing toward goal OP PT Goals Goal 1: Patient will report no increse in right foot/ankle pain with ascending/descending s tairs at work in 12 weeks. Goal 1 Status: No change. Goal 2: Patient will be indep with home exercises program to manage symptoms in 12 weeks. Goal 2 Status: Progressing, pt reports compliance with exercises, but still experiences int ermittent sx increase. Plan Date of Onset: 05/21/2019 Start of Care Date: 11/21/2019 Requested # of Visits: 4 visits 1x/week for 12 weeks Certification From: 02/11/2020 Certification To: 05/05/2020 Treatment Plan/Interventions PT EvaluationPT [id number] - Therapeutic [id number] - Neuromuscular Reeducation9 7116 - Gait [id number] - Therapeutic [id number] - Aquatic Therapy/[id number] - U avsldtnuf27136/G0283 - Electrical Stimulation, [id number] - Electrical Stimulation, Att [id number] - TENS Application/Instruction Patient and/or family has indicated understanding of treatment needs and actively participa everardo in the creation of this plan for care. Electronically signed by: Julia Fisher PT, 02/12/2020 2:00 PM Patient Name: Andrea Suh/: 1990/ signed by Erkia Ernst DO at 02/12/2020 2:29 PM PDTdocumented in this encounter Plan of Treatment +--------+ + + + + | Date | Type | Specialty | Care Team | Description | +--------+ + + + + | 02/18/ | Appointment | Rehabilitation | Erika Ernst, | | 2019 | | | DO [address] | | | | | | [place] [address] | | | | | | [phone] | | | | | | | | | | | | Julia Fisher, | | | | | | PT | | +--------+ + + + + | 02/18/ | Appointment | Rehabilitation | Erika Ernst, | | | 2019 | | | DO [address] | | | | | | [place] [address] | | | | | | [phone] | | | | | | | | | | | | [facility] | | +--------+ + + + + | 02/25/ | Office | Primary Care | Erika Ernst, | | | 2019 | Visit | | DO [address] | | | | | | [place] [address] | | | | | | [phone] | | | | | | | [...] | | | | | [place] [address] | | | | | | [phone] | | | | | | | | +--------+ + + + + | 02/27/ | Appointment | Radiology | Dhara, | | | 2019 | | | [address] | | | | | | [address] [facility], | | | | | | [place] [address] | | | | | | [phone] | | | | | | | | +--------+ + + + + | 03/04/ | Appointment | Rehabilitation | [facility] | | | 2019 | | | | | +--------+ + + + + | 03/09/ | Office | Orthopedic Surgery | Jeffrey Gandhi, | | 2019 | Visit | | [address] | | | | | | [place] [address] | | | | | | [phone] | | | | | | | [...] [place] | | | | | | [address] | | | | | | [phone] | | | | | | | [...] | | | | | [place] [address] | | | | | | [phone] | | | | | | | | | | | | Azul Yeboah, | | | | | | MD [address] | | | | | | [place] | | | | | | [place] [address] | | | | | | [phone] | | | | | | | [...] | | | | | | [place] [address] | | | | | | [phone] | | | | | | | | +--------+ + + + + documented as of this encounter Visit Diagnoses + + | Diagnosis | + + | Sprain of deltoid ligament of right ankle, subsequent encounter - Primary | + + documented in this encounter
--- OUTSIDE RECORDS SUMMARY | ~2020-02-18 | XMS | Encounter Summary ---
Demographics + + + | Address | [address] | | | [place] [address] | + + + | Home Phone [...] Team Providers + +------+ + | Care Corporate Physical Security Supervisor Name | Role | Phone | [...] Paperwork | | 2020 | | [facility] | DO [address] | | | | | [facility] [address] | [place] [address] | | | | [address] [place], | [phone] | | | | | [place] [address] | | | | | | [phone] | | | +--------+ + + + [...] | | | | | [place] [address] | | | | | | [phone] | | | | | | | | | | | | Julia Fisher, | | | | | | PT | | +--------+ + + + + | 02/18/ | Appointment | Rehabilitation | Erika Ernst, | | | 2019 | | | DO [address] | | | | | | [place] [address] | | | | | | [phone] | | | | | | | | | | | | [facility] | | +--------+ + + + + | 02/25/ | Office | Primary Care | Erika Ernst, | | | 2019 | Visit | | DO [address] | | | | | | [place] [address] | | | | | | [phone] | | | | | | | [...] | | | | | [place] [address] | | | | | | [phone] | | | | | | | | +--------+ + + + + | 02/27/ | Appointment | Radiology | Dhara, | | | 2019 | | | [address] | | | | | | [address] [facility], | | | | | | [place] [address] | | | | | | [phone] | | | | | | | | +--------+ + + + + | 03/04/ | Appointment | Rehabilitation | [facility] | | | 2019 | | | | | +--------+ + + + + | 03/09/ | Office | Orthopedic Surgery | Jeffrey Gandhi, | | | 2019 | Visit | | [place] [address] | | | | | | [place] [address] | | | | | | [phone] | | | | | | | [...] [place] | | | | | | [address] | | | | | | [phone] | | | | | | | [...] | | | | | [place] [address] | | | | | | [phone] | | | | | | | | | | | | Azul Yeboah, | | | | | | MD [address] | | | | | | [place] | | | | | | [place] [address] | | | | | | [phone] | | | | | | | | +--------+ + + + + | 04/08/ | Appointment | Nutrition | Janel Webster | | | 2019 | | | [place], [place] | | +--------+ + + + + | 05/21/ | Office | Neurology | Dhara, | | | 2020 | Visit | | [address] | | | | | | [address] [place], | | | | | | [place] [address] | | | | | | [phone] | | | | | | | | +--------+ + + + + documented as of this encounter Visit Diagnoses Not on filedocumented in this encounter"
--- OUTSIDE RECORDS SUMMARY | ~2020-02-18 | XMS | Encounter Summary ---
Demographics + + + | Address | [address] | | | [place] [address] | + + + | Home Phone [...] Providers + +------+ + | Care Hydraulic Specialist Name | Role | Phone | [...] Pressure | | 2019 | | [facility] | DO [address] | | | | | MEDICAL CLIN[facility] [address] | [place] [address] | | | | | [address] [place], | [phone] | | | | | [place] [address] | | | | | | [phone] | | | +--------+ + + + [...] | | 2019 | | | DO [place] | | | | | | [place] [address] | | | | | | [phone] | | | | | | | | | | | | Julia Fisher, | | | | | | PT | | +--------+ + + + + | 02/18/ | Appointment | Rehabilitation | Erika Ernst, | | | 2019 | | | DO [address] | | | | | | [place] [address] | | | | | | [phone] | | | | | | | | | | | | [facility] | | +--------+ + + + + | 02/25/ | Office | Primary Care | Erika Ernst, | | | 2019 | Visit | | DO [address] [place] | | | | | | [place] [address] | | | | | | [phone] | | | | | | | [...] | | | | | [place] [address] | | | | | | [phone] | | | | | | | | +--------+ + + + + | 02/27/ | Appointment | Radiology | Dhara, | | | 2019 | | | [address] | | | | | | [address] [facility], | | | | | | [place] [address] | | | | | | [phone] | | | | | | | | +--------+ + + + + | 03/04/ | Appointment | Rehabilitation | [facility] | | | 2019 | | | | | +--------+ + + + + | 03/09/ | Office | Orthopedic Surgery | Jeffrey aGndhi, | | | 2019 | Visit | | [address] | | | | | | [place] [address] | | | | | | [phone] | | | | | | | [...] [place] | | | | | | [address] | | | | | | [phone] | | | | | | | [...] | | | | | [place] [address] | | | | | | [phone] | | | | | | | | | | | | Azul Yeboah, | | | | | | MD [address] | | | | | | [place] | | | | | | [place] [address] | | | | | | [phone] | | | | | | | [...] | | | | | | [place] [address] | | | | | | [phone] | | | | | | | | +--------+ + + + + documented as of this encounter Visit Diagnoses Not on filedocumented in this encounter"
--- OUTSIDE RECORDS SUMMARY | ~2020-02-18 | XMS | Encounter Summary ---
Demographics + + + | Address | [address] | | | [place] [address] | + + + | Home Phone [...] Providers + +------+ + | Care Kennel Manager Dog Track Name | Role | Phone | + [...] | asthma with | [place], | [place] | | | | | acute | [place] [address] | Health and | | | | | exacerbation | Phone: | Service | | | | | | [phone] | | | | | | | Fax: | | | | | | | [phone] | | +--------+ + + + + [...] | | | | syndrome | [place] [address] | [place], [place] | | | | | | Phone: | [phone] Phone: | | | | | | [phone] | [phone] | | | | | | Fax: | Fax: | | | | | | [phone] | [phone] | +--------+ + + + + + [...] [address] | [place] [address] | exacerbation | | | | [address] [place], | [phone] | (Primary Dx); | | | | [place] [address] | | Environmental | | | | [phone] | | allergies; | | | | [...] documented in this encounter Progress Notes Erika Enrst, - 04/12/2019 2:30 PM PDTFormatting of this [...] yet. She had seen Dr Pruett Asth [facility] in [place] last Fall and in Nov but would like to see a different weather algorithm scientist for second opinion. Dr Pruett focused on [...] Referral to [facility] Plan: Referral to Animal Health Technician for second opinion and continue current inhalers. [...] | | | | | [place] [address] | | | | | | [phone] | | | | | | | | | | | | Julia Fisher, | | | | | | PT | | +--------+ + + + + | 02/18/ | Appointment | Rehabilitation | Erika Ernst, | | | 2019 | | | DO [address] [place] | | | | | | [place] [address] | | | | | | [phone] | | | | | | | | | | | | [facility] | | +--------+ + + + + | 02/25/ | Office | Primary Care | Erika Ernst, | | | 2019 | Visit | | DO [address] [place] | | | | | | [place] [address] | | | | | | [phone] | | | | | | | [...] | | | | | [place] [address] | | | | | | [phone] | | | | | | | | +--------+ + + + + | 02/27/ | Appointment | Radiology | Dhara, | | | 2019 | | | [address] | | | | | | [address] [facility], | | | | | | [place] [address] | | | | | | [phone] | | | | | | | [...] [address] | | | | | | [place] [address] | | | | | | [phone] | | | | | | | [...] [place] | | | | | | [address] | | | | | | [phone] | | | | | | | [...] | | | | | [place] [address] | | | | | | [phone] | | | | | | | | | | | | Azul Yeboah, | | | | | | MD [address] | | | | | | [place] | | | | | | [place] [address] | | | | | | [phone] | | | | | | | [...] | | | | | | [place] [address] | | | | | | [phone] | | | | | | | [...]
--- OUTSIDE RECORDS SUMMARY | ~2020-02-18 | XMS | Encounter Summary ---
Demographics + + + | Address | [address] | | | [place] [address] | + + + | Home Phone [...] Team Providers + +------+ + | Care Saxophone Teacher Name | Role | Phone | + +------+ + PCP | Unavailable | + +------+ + Encounter Details +--------+ + + + + | Date | Type | Department | Care Team | Description | +--------+ + + + + | 04/13/ | [facility] | Caro Zendejas | | | 2015 | Encounter | [facility] | Vale, TREE DEAD[address] | | | | | [facility] [address] | [facility], [place] | | | | | [address]TH [facility], | [address] | | | | | [place] [address] | [phone] | | | | | [phone] | | | +--------+ + + + [...] | | | | | [place] [address] | | | | | | [phone] | | | | | | | | | | | | Juila Fisher, | | | | | | PT | | +--------+ + + + + | 02/18/ | Appointment | Rehabilitation | Erika Ernst, | | | 2019 | | | DO [address] | | | | | | [place] [address] | | | | | | [phone] | | | | | | | | | | | | Genesis Ayon, OT | | +--------+ + + + + | 02/25/ | Office | Primary Care | Erika Ernst, | | | 2019 | Visit | | DO [address] | | | | | | [place] [address] | | | | | | [phone] | | | | | | | [...] | | | | | [place] [address] | | | | | | [phone] | | | | | | | | +--------+ + + + + | 02/27/ | Appointment | Radiology | Dhara, | | | 2019 | | | [address] | | | | | | 4TH [facility], | | | | | | [place] [address] | | | | | | [phone] | | | | | | | | +--------+ + + + + | 03/04/ | Appointment | Rehabilitation | Genesis Ayon OT | | | 2019 | | | | | +--------+ + + + + | 03/09/ | Office | Orthopedic Surgery | Jeffrey Gandhi, | | | 2019 | Visit | | [address] | | | | | | [place] [address] | | | | | | [phone] | | | | | | | [...] [place] | | | | | | [address] | | | | | | [phone] | | | | | | | [...] | | | | | [place] [address] | | | | | | [phone] | | | | | | | | | | | | Azul Yeboah, | | | | | | MD [address] | | | | | | [place] | | | | | | [place] [address] | | | | | | [phone] | | | | | | | [...] | | | | | | [place] [address] | | | | | | [phone] | | | | | | | | +--------+ + + + + documented as of this encounter Visit Diagnoses Not on filedocumented in this encounter"
--- OUTSIDE RECORDS SUMMARY | ~2020-02-18 | XMS | Encounter Summary ---
Demographics + + + | Address | [address] | | | [place] [address] | + + + | Home Phone [...] Team Providers + +------+ + | Care Licensed Mortgage Loan Officer Name | Role | Phone | [...] [place] | | | | | | [address] | | | | | | [phone] | | | +--------+ + + + [...] period and is compliant with wrist and cut lace machine operator strengthening exercises. She does still have deficits in cut lace machine operator strength and wrist stability as well as pain with daily activities. Her arya b description may be changing which would decrease the physical demands of her work, making it more appropriate for her current status. She continues to benefit from Occupational Thera py to maximize her cut lace machine operator strength and wrist stability following this injury and return her to prior level of function. 10/30/2018 - REASON FOR RE-CERTIFICATION: Andrea has received 12 Occupational Therapy treatme nts since 08/07/2018 following her right wrist surgery. She has regained full AROM of the rig ht wrist but continues to have right wrist, cut lace machine operator and pinch weakness and significant pain (3- [...] in 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, and cut lace machine operator and pinch weakness in the right [...] | | | | | [place] [address] | | | | | | [phone] | | | | | | | | | | | | Julia Fisher, | | | | | | PT | | +--------+ + + + + | 02/18/ | Appointment | Rehabilitation | Erika Ernst, | | | 2019 | | | DO [address] | | | | | | [place] [address] | | | | | | [phone] | | | | | | | | | | | | Genesis Ayon OT | | +--------+ + + + + | 02/25/ | Office | Primary Care | Erika Ernst, | | | 2019 | Visit | | DO [address] | | | | | | [place] [address] | | | | | | [phone] | | | | | | | [...] | | | | | | [place] [id number] | | | | | | [phone] | | | | | | | | +--------+ + + + + | 02/27/ | Appointment | Radiology | Dhara, | | | 2019 | | | [address] | | | | | | [address] [place], | | | | | | [place] [address] | | | | | | [phone] | | | | | | | [...] ST | | | | | | [place] [address] | | | | | | [phone] | | | | | | | [...] [place] | | | | | | [address] | | | | | | [phone] | | | | | | | [...] | | | | | [place] [address] | | | | | | [phone] | | | | | | | | | | | | Azul Yeboah, | | | | | | MD [address] | | | | | | [place] | | | | | | [place] [address] | | | | | | [phone] | | | | | | | [...] | | | | | | [place] [address] | | | | | | [phone] | | | | | | | | +--------+ + + + + documented as of this encounter Visit Diagnoses + + | Diagnosis | + + | Radial styloid tenosynovitis - Primary | + + | Right wrist pain Pain in joint, forearm | + + documented in this encounter"
--- OUTSIDE RECORDS SUMMARY | ~2020-02-18 | XMS | Encounter Summary ---
Demographics + + + | Address | [address] | | | [place] [address] | + + + | Home Phone [...] Providers + +------+ + | Care Belt Fixer Name | Role | Phone | + [...] [facility] [address] | | | | | [facility] [address] | [place] [address] | | | | | [address] [place], | [phone] | | | | | [place] [address] | | | | | | [phone] | | | +--------+ + + + [...] | 2019 | | | DO [address] | | | | | | [place], [place] [address] | | | | | | [phone] | | | | | | | [...] [address] | | | | | | [phone] | | | | | | | | | | | | Genesis Ayon OT | | +--------+ + + + + | 02/25/ | Office | Primary Care | Erika Ernst, | | | 2019 | Visit | | DO [address] | | | | | | [place] [address] | | | | | | [phone] | | | | | | | [...] | | | | | [place] [address] | | | | | | [phone] | | | | | | | | +--------+ + + + + | 02/27/ | Appointment | Radiology | Dhara, | | | 2019 | | | [address] | | | | | | [address] [place], | | | | | | [place] [address] | | | | | | [phone] | | | | | | | [...] | | | | | [place] [address] | | | | | | [phone] | | | | | | | [...] [place] | | | | | | [address] | | | | | | [phone] | | | | | | | [...] | | | | | [place] [address] | | | | | | [phone] | | | | | | | | | | | | Azul Yeboah, | | | | | | MD [address] | | | | | | [place] | | | | | | [place] [address] | | | | | | [phone] | | | | | | | [...] | | | | | | [place] [address] | | | | | | [phone] | | | | | | | | +--------+ + + + + documented as of this encounter Visit Diagnoses Not on filedocumented in this encounter"
--- OUTSIDE RECORDS SUMMARY | ~2020-02-18 | XMS | Encounter Summary ---
Demographics + + + | Address | [address] | | | [place] [address] | + + + | Home Phone [...] Providers + +------+ + | Care Swine Extension Field Specialist Name | Role | Phone | [...] | Medication | | 2018 | | [facility] | Donte, DIGITAL PRINT OPERATOR | Management | | | | [facility] [address] | | | | | | [facility] | | | | | | [place] [address] | | | | | | [phone] | | | +--------+ + + + [...] | | | | | [place] [address] | | | | | | [phone] | | | | | | | | | | | | Julia Fisher, | | | | | | PT | | +--------+ + + + + | 02/18/ | Appointment | Rehabilitation | Erika Ernst, | | | 2019 | | | DO [address] | | | | | | [place] [address] | | | | | | [phone] | | | | | | | | | | | | Genesis Ayon OT | | +--------+ + + + + | 02/25/ | Office | Primary Care | Erika Ernst, | | | 2019 | Visit | | DO [address] | | | | | | [place] [address] | | | | | | [phone] | | | | | | | [...] | | | | | | [place] [address] | | | | | | [phone] | | | | | | | | +--------+ + + + + | 02/27/ | Appointment | Radiology | Dhara, | | | 2019 | | | [address] | | | | | | [address] [place], | | | | | | [place] [address] | | | | | | [phone] | | | | | | | [...] [place] | | | | | | [place] [address] | | | | | | [phone] | | | | | | | [...] [place] | | | | | | [address] | | | | | | [phone] | | | | | | | [...] | | | | | [place] [address] | | | | | | [phone] | | | | | | | | | | | | Azul Yeboah, | | | | | | [address] | | | | | | [place] | | | | | | [place] [address] | | | | | | [phone] | | | | | | | [...] [address] | | | | | | [phone] | | | | | | | | +--------+ + + + + documented as of this encounter Visit Diagnoses + + | Diagnosis | + + | Hypertension, unspecified type - Primary | + + documented in this encounter"
--- OUTSIDE RECORDS SUMMARY | ~2020-02-18 | XMS | Encounter Summary ---
Demographics + + + | Address | [address] | | | [place] [address] | + + + | Home Phone [...] Team Providers + +------+ + | Care Anime Artist Name | Role | Phone | + +------+ + PCP | Unavailable | + +------+ + Encounter Details +--------+ + + + + | Date | Type | Department | Care Team | Description | +--------+ + + + + | 12/17/ | [facility] | [place] | Erika Ernst, | | | 2016 | Encounter | [facility] | DO [address] | | | | | MEDICAL [facility] [address] | [place] [address] | | | | | [address] [place], | [phone] | | | | | [place] [address] | | | | | | [phone] | | | +--------+ + + + [...] | | | | | [place] [address] | | | | | | [phone] | | | | | | | | | | | | Julia Fisher, | | | | | | PT | | +--------+ + + + + | 02/18/ | Appointment | Rehabilitation | Erika Ernst, | | | 2019 | | | DO [address] | | | | | | [place] [address] | | | | | | [phone] | | | | | | | | | | | | Genesis Ayon OT | | +--------+ + + + + | 02/25/ | Office | Primary Care | Erika Ernst, | | | 2019 | Visit | | DO [address] | | | | | | [place] [address] | | | | | | [phone] | | | | | | | [...] | | | | | | [place] [address] | | | | | | [phone] | | | | | | | | +--------+ + + + + | 02/27/ | Appointment | Radiology | Dhara, | | | 2019 | | | [address] | | | | | | 4TH [facility], | | | | | | [place] [address] | | | | | | [phone] | | | | | | | [...] HOSPITAL | | | | | | [place] [address] | | | | | | [phone] | | | | | | | [...] [address] | | | | | | [place] | | | | | | [address] | | | | | | [phone] | | | | | | | [...] | | | | | [place] [address] | | | | | | [phone] | | | | | | | | | | | | Azul Yeboah, | | | | | | MD [address] | | | | | | [place] | | | | | | [place] [address] | | | | | | [phone] | | | | | | | [...] | | | | | | [place] [address] | | | | | | [phone] | | | | | | | | +--------+ + + + + documented as of this encounter Visit Diagnoses Not on filedocumented in this encounter"
--- OUTSIDE RECORDS SUMMARY | ~2020-02-18 | XMS | Encounter Summary ---
Demographics + + + | Address | [address] | | | [place] [address] | + + + | Home Phone [...] Team Providers + +------+ + | Care Fios Line Installer Name | Role | Phone | + +------+ + PCP | Unavailable | + +------+ + Encounter Details +--------+ + + + + | Date | Type | Department | Care Team | Description | +--------+ + + + + | 09/12/ | [facility] | Amparo Timmons | | | 2016 | Encounter | [facility] | C, PEDIATRIC OCCUPATIONAL THERAPIST [address] | | | | | CENTER [address] | [place] | | | | | [place] | [address] | | | | | [address] | | | | | | [phone] | | | +--------+ + + + [...] | | 2020 | | | DO [facility] | | | | | | [facility], [place] [address] | | | | | | [phone] | | | | | | | | | | | | Julia Fisher, | | | | | | PT | | +--------+ + + + + | 02/18/ | Appointment | Rehabilitation | Erika Ernst, | | | 2019 | | | DO [address] | | | | | | [place] [address] | | | | | | [phone] | | | | | | | | | | | | Genesis Ayon, SUSAN | | +--------+ + + + + | 02/25/ | Office | Primary Care | Erika Ernst, | | | 2019 | Visit | | DO [address] | | | | | | [place] [address] | | | | | | [phone] | | | | | | | [...] | | | | | [place] [address] | | | | | | [phone] | | | | | | | | +--------+ + + + + | 02/27/ | Appointment | Radiology | Dhara, | | | 2019 | | | [address] | | | | | | [address] [place], | | | | | | [place] [address] | | | | | | [phone] | | | | | | | [...] | | | | | [place] [address] | | | | | | [phone] | | | | | | | [...] [place] | | | | | | [address] | | | | | | [phone] | | | | | | | [...] | | | | | [place] [address] | | | | | | [phone] | | | | | | | | | | | | Azul Yeboah, | | | | | | MD [address] | | | | | | [place] | | | | | | [place] [address] | | | | | | [phone] | | | | | | | [...] | | | | | | [place] [address] | | | | | | [phone] | | | | | | | | +--------+ + + + + documented as of this encounter Visit Diagnoses Not on filedocumented in this encounter"
--- OUTSIDE RECORDS SUMMARY | ~2020-02-18 | XMS | Encounter Summary ---
Demographics + + + | Address | [address] | | | [place] [address] | + + + | Home Phone [...] Team Providers + +------+ + | Care Card Stripper Name | Role | Phone | + [...] | [facility] [address] | [place] [address] | | | | | [address] [place], | [phone] | | | | | [place] [address] | | | | | | [phone] | | | +--------+ + + + [...] | | | | | [place] [address] | | | | | | [phone] | | | | | | | | | | | | Julia Fisher, | | | | | | PT | | +--------+ + + + + | 02/18/ | Appointment | Rehabilitation | Erika Ernst, | | | 2019 | | | DO [address] | | | | | | [place] [address] | | | | | | [phone] | | | | | | | | | | | | Genesis Ayon OT | | +--------+ + + + + | 02/25/ | Office | Primary Care | Erika Ernst, | | | 2019 | Visit | | DO [address] | | | | | | [place] [address] | | | | | | [phone] | | | | | | | [...] | | | | | | [place] [address] | | | | | | [phone] | | | | | | | | +--------+ + + + + | 02/27/ | Appointment | Radiology | Dhara, | | | 2019 | | | [address] | | | | | | 4TH [facility], | | | | | | [place] [address] | | | | | | [phone] | | | | | | | | +--------+ + + + + | 03/04/ | Appointment | Rehabilitation | Genesis Ayon OT | | | 2019 | | | | | +--------+ + + + + | 03/09/ | Office | Orthopedic Surgery | Jeffrey Gandhi, | | | 2019 | Visit | | [address] | | | | | | [place] [address] | | | | | | [phone] | | | | | | | [...] [place] | | | | | | [address] | | | | | | [phone] | | | | | | | [...] | | | | | [place] [address] | | | | | | [phone] | | | | | | | | | | | | Azul Yeboah, | | | | | | [address] | | | | | | [place] | | | | | | [place] [address] | | | | | | [phone] | | | | | | | [...] | | | | | | [place] [address] | | | | | | [phone] | | | | | | | | +--------+ + + + + documented as of this encounter Visit Diagnoses Not on filedocumented in this encounter"
--- OUTSIDE RECORDS SUMMARY | ~2020-02-18 | XMS | Encounter Summary ---
Demographics + + + | Address | [address] | | | [place] [address] | + + + | Home Phone [...] Team Providers + +------+ + | Care Refractory Tile Helper Name | Role | Phone | [...] | | | | s (de | [place], [place] | [place] [address] | | | | | quervain) | [address] | Phone: | | | | | Pain in | Phone: | [phone] | | | | | right wrist | [phone] | Fax: | | | | | Procedures | Fax: | [phone] | | | | | OT TREAT | [phone] | | +--------+--------+ + + + + [...] | | [address] [place] | [place] [address] | (Primary Dx); Right | | | | [place], [place] | [phone] | wrist pain | | | | [address] | | | | | | [phone] | Michela Azevedo, | | | | [...] might be different f rom the original. 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 strengthening to pink tputty, added submaximal 4 [...] wrist but continues to have right wrist, soldering machine operator automatic and pinch weakness and significant pain (3 [...] in 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, and soldering machine operator automatic and pinch weakness in the right hand [...] | | | | | [place] [address] | | | | | | [phone] | | | | | | | | | | | | Julia Fisher, | | | | | | PT | | +--------+ + + + + | 02/18/ | Appointment | Rehabilitation | Erika Ernst, | | | 2019 | | | DO [address] | | | | | | [place] [address] | | | | | | [phone] | | | | | | | | | | | | Genesis Ayon OT | | +--------+ + + + + | 02/25/ | Office | Primary Care | Erika Ernst, | | | 2019 | Visit | | DO [address] [place] [address] | | | | | | [place] [address] | | | | | | [phone] | | | | | | | [...] | | | | | [place] [address] | | | | | | [phone] | | | | | | | | +--------+ + + + + | 02/27/ | Appointment | Radiology | Dhara, | | | 2019 | | | [address] | | | | | | [address] [place], | | | | | | [place] [address] | | | | | | [phone] | | | | | | | | +--------+ + + + + | 03/04/ | Appointment | Rehabilitation | Genesis Ayon OT | | | 2019 | | | | | +--------+ + + + + | 03/09/ | Office | Orthopedic Surgery | Jeffrey Gandhi, | | | 2019 | Visit | | [address] | | | | | | [place] [address] | | | | | | [phone] | | | | | | | [...] [place] | | | | | | [address] | | | | | | [phone] | | | | | | | [...] | | | | | [place] [address] | | | | | | [phone] | | | | | | | | | | | | Azul Yeboah, | | | | | | [address] | | | | | | [place] | | | | | | [place] [address] | | | | | | [phone] | | | | | | | [...] | | | | | | [place] [address] | | | | | | [phone] | | | | | | | | +--------+ + + + + documented as of this encounter Visit Diagnoses + + | Diagnosis | + + | Radial styloid tenosynovitis - Primary | + + | Right wrist pain Pain in joint, forearm | + + documented in this encounter
--- OUTSIDE RECORDS SUMMARY | ~2020-02-18 | XMS | Encounter Summary ---
Demographics + + + | Address | [address] | | | [place] [address] | + + + | Home Phone [...] Team Providers + +------+ + | Care Finance Professional Name | Role | Phone | [...] | | | | encounter | [place] [address] | [place], [place] | | | | | | Phone: | [address] Phone: | | | | | | [phone] | [phone] | | | | | | Fax: | Fax: | | | | | | [phone] | [phone] | + + + + + + [...] | [facility] [address] | [place] [address] | encounter (Primary | | | | [address] [place], | [phone] | Dx) | | | | [place] [address] | | | | | | [phone] | | | +--------+ + + + [...] | | 2019 | | | DO [address] [place] [address] | | | | | | [place] [address] | | | | | | [phone] | | | | | | | | | | | | Julia Fisher, | | | | | | PT | | +--------+ + + + + | 02/18/ | Appointment | Rehabilitation | Erika Ernst, | | | 2019 | | | DO [address] | | | | | | [place] [address] | | | | | | [phone] | | | | | | | | | | | | Genesis Ayon OT | | +--------+ + + + + | 02/25/ | Office | Primary Care | Erika Ernst, | | | 2019 | Visit | | DO [address] | | | | | | [place] [address] | | | | | | [phone] | | | | | | | [...] | | | | | [place] [address] | | | | | | [phone] | | | | | | | | +--------+ + + + + | 02/27/ | Appointment | Radiology | Dhara, | | | 2019 | | | [address] | | | | | | [address] [place], | | | | | | [place] [address] | | | | | | [phone] | | | | | | | [...] | | | | | [place] [address] | | | | | | [phone] | | | | | | | [...] [place] | | | | | | [address] | | | | | | [phone] | | | | | | | [...] | | | | | [place] [address] | | | | | | [phone] | | | | | | | | | | | | Azul Yeboah, | | | | | | MD [address] | | | | | | [place] | | | | | | [place] [address] | | | | | | [phone] | | | | | | | [...] | | | | | | [place] [address] | | | | | | [phone] | | | | | | | [...]
--- OUTSIDE RECORDS SUMMARY | ~2020-02-18 | XMS | Encounter Summary ---
Demographics + + + | Address | [address] | | | [place] [address] | + + + | Home Phone [...] Providers + +------+ + | Care Health Club Attendant Name | Role | Phone | [...] | | tenosynoviti | [address] | K[place], | | | | | s (de | [place], [place] | [place] [address] | | | | | quervain) | [address] | Phone: | | | | | Pain in | Phone: | [phone] | | | | | right wrist | [phone] | Fax: | | | | | Procedures | Fax: | [phone] | | | | | OT TREAT | [phone] | | +--------+--------+ + + + + [...] | | [address] | [place] [address] | (Primary Dx); Right | | | | [place] | [phone] | wrist pain | | | | [address] | | | | | | [phone] | Milla Gracia, OT | | +--------+ [...] Bella, OT - 08/29/2018 12:28 PM PST [facility] OT [address] [place] [address] Occupational Therapy PROGRESS NOTE Date: 08/28/2018 Patient Information Patient Name: Adnrea Suh Date of : 1990 Age: 28 [...] jar: 3 - Moderate Difficulty Do heavy psychodramatist: 4 - Severe Difficulty Carry a shopping [...] se ssion) Strength: Left Hand Strength - Associate Programmer (lbs) L Associate Programmer Trial 1: 60 L Associate Programmer Trial 2: 55 L Associate Programmer Trial 3: 48 L Associate Programmer Trial Average: 54.33 L Three Jaw Payam Trial 1: 10 L Three Jaw Payam Trial 2: 13 L Three Jaw Payam Trial 3: 11 L Three Jaw Payam Trial Average: 11.33 L Lateral Pinch Trial 1: 16 L Lateral Pinch Trial 2: 17 L Lateral Pinch Trial 3: 17.5 L Lateral Pinch Trial Average: 16.83 Right Hand Strength - Associate Programmer (lbs) R Associate Programmer Trial 1: 26 R Associate Programmer Trial 2: 24 R Associate Programmer Trial 3: 23 R Associate Programmer Trial Average: 24.33 R Three Jaw Payam [...] 5: TFA (20 minutes): Objective measurements (ROM, quality eng strength) and discus tunde of limitations to [...] pt has made progress with her R quality eng strength, but is still experiencin g activity [...] in 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, and quality eng and pinch weakness in the right hand [...] Goal 2: The pt will have right quality eng strength of 50 lbs by discharge Goal 2 Status: At PN (08/28/18) PARTIALLY MET. Right quality eng: 24, and left is 54 lbs Goal [...] Ordering Physician: Jeffrey Gandhi MD Claim #: [id number] Date of Injury: 07/20/2018 (Date of surgery) [...] at last Assessment Left Hand Strength - Associate Programmer (lbs) L Associate Programmer Trial 1: 60 L Associate Programmer Trial 2: 52 L Associate Programmer Trial 3: 55 L Associate Programmer Trial Average: 55.67 L Three Jaw Payam Trial 1: 13 L Three Jaw Payam Trial 2: 13 L Three Jaw Payam Trial 3: 14 L Three Jaw Payam Trial Average: 13.33 L Lateral Pinch Trial 1: 17 L Lateral Pinch Trial 2: 17 L Lateral Pinch Trial 3: 18 L Lateral Pinch Trial Average: 17.33 Right Hand Strength - Associate Programmer (lbs) R Associate Programmer Trial 1: 15 R Associate Programmer Trial 2: 24 R Associate Programmer Trial 3: 21 R Associate Programmer Trial Average: 20 R Three Jaw Payam Trial 1: 8 R Three Jaw Payam Trial 2: 10 R Three Jaw Payam Trial 3: 9 R Three Jaw Payam Trial Average: 9 R Lateral Pinch Trial 1: 8 R Lateral Pinch Trial 2: 10 R Lateral Pinch Trial 3: 11 R Lateral Pinch Trial Average: 9.67 Current Strength Left Hand Strength - Associate Programmer (lbs) L Associate Programmer Trial 1: 60 L Associate Programmer Trial 2: 55 L Associate Programmer Trial 3: 48 L Associate Programmer Trial Average: 54.33 L Three Jaw Payam Trial 1: 10 L Three Jaw Payam Trial 2: 13 L Three Jaw Payam Trial 3: 11 L Three Jaw Payam Trial Average: 11.33 L Lateral Pinch Trial 1: 16 L Lateral Pinch Trial 2: 17 L Lateral Pinch Trial 3: 17.5 L Lateral Pinch Trial Average: 16.83 Right Hand Strength - Associate Programmer (lbs) R Associate Programmer Trial 1: 26 R Associate Programmer Trial 2: 24 R Associate Programmer Trial 3: 23 R Associate Programmer Trial Average: 24.33 R Three Jaw Payam [...] 08/07/2018 Certification To: 10/30/2018 Treatment Plan/Interventions OT [id number] - Therapeutic [id number] - Therapeutic [id number] - Self Care/Ho me [id number] - Manual [id number] - Orthotic/Prosthetic [id number] - [id number] 34 - Contrast [id number] - Paraffin BathSplinting Moist heat, cold therapy [...] pt has made progress with her R quality eng strength, but is still experiencin g activity [...] | | | | | [place] [address] | | | | | | [phone] | | | | | | | | | | | | Julia Fisher, | | | | | | PT | | +--------+ + + + + | 02/18/ | Appointment | Rehabilitation | Erika Ernst, | | | 2019 | | | DO [address] | | | | | | [place] [address] | | | | | | [phone] | | | | | | | | | | | | Genesis Ayon OT | | +--------+ + + + + | 02/25/ | Office | Primary Care | Erika Ernst, | | | 2019 | Visit | | DO [address] | | | | | | [place] [address] | | | | | | [phone] | | | | | | | [...] | | | | | [place] [address] | | | | | | [phone] | | | | | | | | +--------+ + + + + | 02/27/ | Appointment | Radiology | Dhara, | | 2019 | | | DWAINE Ross [address] | | | | | | [address] [facility], | | | | | | [place] [address] | | | | | | [phone] | | | | | | | | +--------+ + + + + | 03/04/ | Appointment | Rehabilitation | Genesis Ayon OT | | | 2019 | | | | | +--------+ + + + + | 03/09/ | Office | Orthopedic Surgery | Jeffrey Gandhi, | | | 2019 | Visit | | [address] | | | | | | [place] [address] | | | | | | [phone] | | | | | | | [...] [place] | | | | | | [address] | | | | | | [phone] | | | | | | | [...] | | | | | [place] [address] | | | | | | [phone] | | | | | | | | | | | | Azul Yeboah, | | | | | | [address] | | | | | | [place] | | | | | | [place] [address] | | | | | | [phone] | | | | | | | | +--------+ + + + + | 04/08/ | Appointment | Nutrition | Janel Websetr | | | 2019 | | | [place], RD | | +--------+ + + + + | 05/21/ | Office | Neurology | Dhara, | | | 2020 | Visit | | Cody, AUTOMOTIVE PRODUCT ENGINEER [address] | | | | | | [address] [facility] [place], | | | | | | [place] [address] | | | | | | [phone] | | | | | | | | +--------+ + + + + documented as of this encounter Visit Diagnoses + + | Diagnosis | + + | Radial styloid tenosynovitis - Primary | + + | Right wrist pain Pain in joint, forearm | + + documented in this encounter"
--- OUTSIDE RECORDS SUMMARY | ~2020-02-18 | XMS | Encounter Summary ---
Demographics + + + | Address | [address] | | | [place] [address] | + + + | Home Phone [...] Providers + +------+ + | Care Property Condition Assessor Name | Role | Phone | + +------+ + | Erika Ernst DO | PCP | | + +------+ + Reason for Visit + + + | Reason | Comments | + + + | Advice Only | Follow-up Bruise | + + + Encounter Details +--------+ + + + + | Date | Type | Department | Care Team | Description | +--------+ + + + + | 09/07/ | Clinical | [place] [facility] | Maryse Langford | | | 2019 | Support | [facility] | DWAINE Huynh | | | | | [facility] [address] | [address] [place] [place] | | | | | [address] [facility] | [place] [address] | | | | | [place] [address] | [phone] | | | | | [phone] | | | +--------+ + + + [...] + + + | Blood Pressure | 108/70 | 09/07/2019 4:08 PM | Left, lrg, manual, | | | | PST | sit | + + + + + | Pulse | 65 | 09/07/2019 4:08 PM | Reg | | | | PST | | + + + + + | Temperature | 36.4 C (97.5 F) | 09/07/2019 4:08 PM | | | | | PST | | + + + + + | Respiratory Rate | 18 | 09/07/2019 4:08 PM | | | | | PST | | + + + + + | Oxygen Saturation | 100% | 09/07/2019 4:08 PM | | | | | PST [...] + documented in this encounter Progress Notes Eliu Miller CC JUKEBOX ROUTE DRIVER - 09/07/2019 3:20 PM Mami King Earlenenanci is a 29 y.o. fema le who presents for f/u on bruise and pain at site of recent thyroid biopsy. Biopsy completed on 09-02-19 then f/u w/CRIMINAL LAWYER Carlos Armando on 09-04-19. Pt stated that during he r appt w/CRIMINAL LAWYER she was advised to rtn to clinic in "a couple days" if the pain does not subside . Pt's bruise was at the end of its progression and only a slightly yellowish area remained, pt also stated that the pain has gotten better since her last visit and she has be completi ng all recommendations for tx by CRIMINAL LAWYER. Pt declined any other/new sx. I consulted w/provider DWAINE Lloyd who stated that the pt is advised to continue cu rrent treatment plan, she can contact on-call ENT if she feels necessary and she should go t o the ER if the pain gets significantly worse. Pt also had a f/u appt scheduled w/PCP on as well. Pt verbalized understanding of plan and had no further questions or concerns. BRISA Blakely CMA documented in this encounter Plan of Treatment +--------+ + + + + | Date | Type | Specialty | Care Team | Description | +--------+ + + + + | 02/18/ | Appointment | Rehabilitation | Erika Ernst, | | | 2019 | | | DO | | | | | | [place] [address] | | | | | | [phone] | | | | | | | | | | | | Julia Fisher, | | | | | | PT | | +--------+ + + + + | 02/18/ | Appointment | Rehabilitation | Erika Ernst, | | | 2019 | | | DO [address] | | | | | | [place] [address] | | | | | | [phone] | | | | | | | | | | | | Genesis Ayon OT | | +--------+ + + + + | 02/25/ | Office | Primary Care | Erika Ernst, | | | 2019 | Visit | | DO [address] | | | | | | [place] [address] | | | | | | [phone] | | | | | | | [...] | | | | | [place] [address] | | | | | | [phone] | | | | | | | | +--------+ + + + + | 02/27/ | Appointment | Radiology | Dhara, | | | 2019 | | | DWAINE Ross [address] | | | | | | [address] [facility], | | | | | | [place] [address] | | | | | | [phone] | | | | | | | | +--------+ + + + + | 03/04/ | Appointment | Rehabilitation | Genesis Ayon OT | | | 2019 | | | | | +--------+ + + + + | 03/09/ | Office | Orthopedic Surgery | Jeffrey Gandhi, | | | 2019 | Visit | | [address] | | | | | | [place] [address] | | | | | | [phone] | | | | | | | [...] [place] | | | | | | [address] | | | | | | [phone] | | | | | | | [...] | | | | | [place] [address] | | | | | | [phone] | | | | | | | | | | | | Azul Yeboah, | | | | | | MD [address] | | | | | | [place] | | | | | | [place] [address] | | | | | | [phone] | | | | | | | [...] | | | | | | [place] [address] | | | | | | [phone] | | | | | | | | +--------+ + + + + documented as of this encounter Visit Diagnoses Not on filedocumented in this encounter
--- OUTSIDE RECORDS SUMMARY | ~2020-02-18 | XMS | Encounter Summary ---
Demographics + + + | Address | [address] | | | [place] [address] | + + + | Home Phone [...] Team Providers + +------+ + | Care Predatory Animal Hunter Name | Role | Phone | + [...] | [facility] [address] | [place] [address] | | | | [address] [place], | [phone] | | | | | [place] [address] | | | | | | [phone] | | | +--------+ + + + [...] | | | | | [place] [address] | | | | | | [phone] | | | | | | | | | | | | Julia Fisher, | | | | | | PT | | +--------+ + + + + | 02/18/ | Appointment | Rehabilitation | Erika Ernst, | | | 2019 | | | DO [address] | | | | | | [place] [address] | | | | | | [phone] | | | | | | | | | | | | Genesis Ayon OT | | +--------+ + + + + | 02/25/ | Office | Primary Care | Erika Ernst, | | | 2019 | Visit | | DO [address] | | | | | | [place] [address] | | | | | | [phone] | | | | | | | [...] | | | | | [place] [address] | | | | | | [phone] | | | | | | | | +--------+ + + + + | 02/27/ | Appointment | Radiology | Dhara, | | | 2019 | | | DWAINE Ross [address] | | | | | | [address] [facility], | | | | | | [place] [address] | | | | | | [phone] | | | | | | | [...] [address] | | | | | | [place] [address] | | | | | | [phone] | | | | | | | [...] [place] | | | | | | [address] | | | | | | [phone] | | | | | | | [...] | | | | | [place] [address] | | | | | | [phone] | | | | | | | | | | | | Azul Yeboah, | | | | | | MD [address] | | | | | | [place] | | | | | | [place] [address] | | | | | | [phone] | | | | | | | [...] | | | | | | [place] [address] | | | | | | [phone] | | | | | | | | +--------+ + + + + documented as of this encounter Visit Diagnoses Not on filedocumented in this encounter"
--- OUTSIDE RECORDS SUMMARY | ~2020-02-18 | XMS | Encounter Summary ---
Demographics + + + | Address | [address] | | | [place] [address] | + + + | Home Phone [...] Team Providers + +------+ + | Care Wind Energy Mechanic Name | Role | Phone | + +------+ + | Erika Ernst DO | PCP | | + +------+ + Reason for Visit +--------+ + | Reason | Comments | +--------+ + | Other | Cold/ flu symtoms x 2 weeks and worsening | +--------+ + Encounter Details +--------+---------+ + + + | Date | Type | Department | Care Team | Description | +--------+---------+ + + + | 10/03/ | Office | [place] [facility] | Maryse Langford | Acute non-recurrent | | 2020 | Visit | [facility] | DWAINE Huynh | pansinusitis | | | | [facility] [address] | [address] [facility] | (Primary Dx); | | | | [address] [facility], | [place] [address] | Antibiotic-induced | | | | [place] [address] | [phone] | yeast infection | | | | [phone] | | | +--------+---------+ + + + [...] + + + | Blood Pressure | 125/84 | 10/03/2019 4:40 PM | | | | | PST | | + + + + + | Pulse | 79 | 10/03/2019 4:40 PM | | | | | PST | | + + + + + | Temperature | 36.3 C (97.4 F) | 10/03/2019 4:40 PM | | | | | PST | | + + + + + | Respiratory Rate | 16 | 10/03/2019 4:40 PM | | | | | PST | | + + + + + | Oxygen Saturation | 99% | 10/03/2019 4:40 PM | | | | | PST [...] this encounter Patient Instructions Patient Instructions Maryse Langford FNP - 10/03/2019 4:25 PM Garyank you fo r your time today. Today you appear to have an acute bacterial sinus infection. We will treat with an antibio tic, Augmentin. Take the entire bottle prescribed. Since I have prescribed an antibiotic, this places you at greater risk for developing a yeast/fungal infection or diarrhea. In ord er to prevent this, I recommend eating yogurt, drinking Kombucha or Kefir or any product ravinder t has live active cultures while taking the antibiotic. Or you can take an over-the counter Probiotic such as Acidophilus/Lactobacillus. Avoid alcohol consumption while taking the an tibiotic because this can decrease the effectiveness of the antibiotic. Symptomatic management ? Tylenol 650-1,000 mg every 6 hours as needed (DO NOT EXCEED 3,000 mg in 24 hours) or Ibup rofen 600-800 mg every 6-8 hours as needed. ? For sore throat and cough: use humidifier, cool liquids, warm de-caf teas with honey and salt water gargles ? Intranasal steroid such as fvis-ujg-yhdcdxq generic Flonase or Nasonex to help decrease t he swelling and inflammation. ? Saline nasal irrigation (Nasal Med Rinse 2-3 squirts in each nostril daily) found at any local pharmacy as often as tolerated throughout the day. [use distilled, boiled or filtered water to mix with saline powder] ? Put a warm compress over the nose and forehead to help relieve sinus pressure ? Breathe in steam from a bowl of hot water or shower If symptoms do not improve in the next 3-4 days, or you develop worsening fever, headache, nasal drainage, facial pain/pressure or congestion please follow-up with your primary care. documented in this encounter Progress Notes Maryse Langford FNP - 10/03/2019 4:25 PM PST Patient ID: Andrea Suh is a 29 y.o. female. Chief Complaint Patient presents with Other Cold/ flu symtoms x 2 weeks and worsening Assessment: 1. Acute non-recurrent pansinusitis - amoxicillin-clavulanate (AUGMENTIN) 875-125 mg per tablet; Take 1 tablet by mouth 2 times daily for 10 days. with food Dispense: 20 tablet; Refill: 0 2. Antibiotic-induced yeast infection - fluconazole (DIFLUCAN) 150 mg tablet; Take 1 tablet by mouth once for 1 dose. Dispense: 1 tablet; Refill: 0 Plan: 1. Acute non-recurrent pansinusitis - amoxicillin-clavulanate (AUGMENTIN) 875-125 mg per tablet; Take 1 tablet by mouth 2 times daily for 10 days. with food Dispense: 20 tablet; Refill: 0 Stable. Patient presents afebrile, well-hydrated w/ ill-appearance, non-toxic. Symptoms p resent x 2 weeks and worsening, suspect bacterial infection. - Augmentin prescribed, counseled on side effects, risks and benefits, take entire course. Advised to eat yogurt or take a probiotic source w/ antibiotic. Avoid alcohol while on ant ibiotic. - Counseled patient on symptomatic treatments: Humidifier, cool liquids, warm de-caf teas w ith honey, salt water gargles, Ninfa Pot, generic Flonase otc, warm compresses, hot steam an d APAP/Ibuprofen prn. - Worrisome s/sx and indications for RTC discussed. - F/u w/ PCP if no improvement or worsening symptoms in the next 3-4 days. 2. Antibiotic-induced yeast infection - fluconazole (DIFLUCAN) 150 mg tablet; Take 1 tablet by mouth once for 1 dose. Dispense: 1 tablet; Refill: 0 - Diflucan prescribed per patient request since she typically will suffer from a yeast infe ction d/t antibiotics. Subjective: History of Present Illness: Andrea [facility] for the following concern(s): Cold-like symptoms Onset: 2 weeks ago. Current symptoms include cough, ear pain and congestion, sore throat, hoarse voice, hard to take a deep breath but denies SOB, intermittent low grade fevers, Tmax 99.8, sinus congestion, frontal sinus pain and headache. She has increased Albuterol nebul izer, otc cold and flu medication, Afrin x 3 days, Flonase nasal spray, Singulair, humidifie r With minimal improvement. 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 She was evaluated by [facility] Dr. Mckeon on 09/29/19 and on Cipro at the time for a UTI, started on 09/23/19 for 7 days, com pleted on 10/01/19 and noted to suspect she had a viral infection and was advised to treat s ymptoms with symptomatic management at home. She is here today because she feels that she i s getting worse not better. Patient is also concerned about an itchy rash that appeared on her chest a couple days ago, but has almost resolved with a couple applications of steroid ointment prescribed by her de rmatologist. History: Active medication list, allergies, medical and social history reviewed with patient. Allergies: She is allergic to latex; lexapro [escitalopram]; deblitane [norethindrone]; hyd rocodone; milk; nickel; uncoded nonscreenable allergen; and adhesive & tape. Review of Systems All other systems reviewed and are negative. Objective: Vitals 09/13/2019 09/19/2019 09/23/2019 09/27/2019 09/29/2019 10/01/2019 10/03/2019 SYSTOLIC 130 - 132 132 127 144 125 DIASTOLIC 88 - 88 84 79 90 84 Pulse 98 78 112 109 89 98 79 Temp - - - - 98 - 97.4 Resp 20 - 18 18 16 18 16 Weight 373 lbs 371 lbs 371 lbs 374 lbs - 374 lbs - Height 5' 10" 5' 10" 5' 10" 5' 10" - 5' 10" - SPO2 96 98 98 100 99 98 99 BMI 53.6 kg/m2 53.3 kg/m2 53.3 kg/m2 53.8 kg/m2 - 53.8 kg/m2 - Physical Exam Vitals signs reviewed. Constitutional: General: She is not in acute distress. Appearance: She is well-developed. She is ill-appearing. She is not toxic-appearing. HENT: Head: Jaw: No trismus. Right Ear: Hearing, ear canal and external ear normal. A middle ear effusion (all landma rks and cone of light visualized) is present. Tympanic membrane is not perforated, erythemat ous, retracted or bulging. Left Ear: Hearing, ear canal and external ear normal. A middle ear effusion (all landmar ks and cone of light visualized) is present. Tympanic membrane is not perforated, erythemato us, retracted or bulging. Nose: Mucosal edema (erythematous) and rhinorrhea (yellow) present. Right Sinus: Maxillary sinus tenderness and frontal sinus tenderness present. Left Sinus: Maxillary sinus tenderness and frontal sinus tenderness present. Mouth/Throat: Mouth: No oral lesions. Pharynx: Oropharynx is clear. Uvula midline. No pharyngeal swelling, oropharyngeal exuda te, posterior oropharyngeal erythema or uvula swelling. Comments: - tonsils surgically absent Eyes: Conjunctiva/sclera: Conjunctivae normal. Pupils: Pupils are equal, round, and reactive to light. Neck: Musculoskeletal: Neck supple. Cardiovascular: Rate and Rhythm: Normal rate and regular rhythm. Heart sounds: Normal heart sounds. Pulmonary: Effort: Pulmonary effort is normal. Breath sounds: Normal breath sounds. Comments: - talking in complete sentences - occasional dry cough heard during exam Lymphadenopathy: Cervical: No cervical adenopathy. Comments: - no lymphadenopathy palpated Skin: General: Skin is warm and dry. Capillary Refill: Capillary refill takes less than 2 seconds. Findings: Rash (faint pink discrete fine papular rash on chest) present. Neurological: Mental Status: She is alert and oriented to person, place, and time. ? All plans were discussed with patient and/or family who verbalized understanding. ? AVS provided. Note: Part of this report was transcribed using voice recognition software. Every effort wa s made to ensure accuracy. However, inadvertent computerized drill runner helper errors may be pre sent. David mented in this encounter Plan of Treatment +--------+ + + + + | Date | Type | Specialty | Care Team | Description | +--------+ + + + + | 02/18/ | Appointment | Rehabilitation | Erika Ernst, | | | 2019 | | | DO [address] | | | | | | [place] [address] | | | | | | [phone] | | | | | | | | | | | | Julia Fisher, | | | | | | PT | | +--------+ + + + + | 02/18/ | Appointment | Rehabilitation | Erika Ernst, | | | 2019 | | | DO [address] | | | | | | [place] [address] | | | | | | [phone] | | | | | | | | | | | | Genesis Ayon, OT | | +--------+ + + + + | 02/25/ | Office | Primary Care | Erika Ernst, | | | 2019 | Visit | | DO [address] | | | | | | [place] [address] | | | | | | [phone] | | | | | | | [...] | | | | | [place] [address] | | | | | | [phone] | | | | | | | | +--------+ + + + + | 02/27/ | Appointment | Radiology | Dhara, | | | 2019 | | | DWAINE Ross [address] | | | | | | [address] [facility], | | | | | | [place] [address] | | | | | | [phone] | | | | | | | | +--------+ + + + + | 03/04/ | Appointment | Rehabilitation | Genesis Ayon OT | | | 2019 | | | | | +--------+ + + + + | 03/09/ | Office | Orthopedic Surgery | Jeffrey Gandhi, | | 2019 | Visit | | [address] | | | | | | [place] [address] | | | | | | [phone] | | | | | | | [...] [place] | | | | | | [address] | | | | | | [phone] | | | | | | | [...] | | | | | [place] [address] | | | | | | [phone] | | | | | | | | | | | | Azul Yeboah, | | | | | | MD [address] | | | | | | [place] | | | | | | [place] [address] | | | | | | [phone] | | | | | | | [...] | | | | | | [place] [address] | | | | | | [phone] | | | | | | | | +--------+ + + + + documented as of this encounter Visit Diagnoses + + | Diagnosis | + + | Acute non-recurrent pansinusitis - Primary | + + | Antibiotic-induced yeast infection | + + documented in this encounter
--- OUTSIDE RECORDS SUMMARY | ~2020-02-18 | XMS | Encounter Summary ---
Demographics + + + | Address | [address] | | | [place] [address] | + + + | Home Phone [...] Providers + +------+ + | Care Nursery Teacher Name | Role | Phone | [...] Diarrhea, | | 2020 | Visit | [facility] | joanna, GRANULAR OPERATOR [address] | unspecified type | | | | [facility] [address] [place] | (Primary Dx); | | | | [address] [place], | [place] [address] | Dysuria | | | | [place] [address] | [phone] | | | | | [phone] | | | +--------+---------+ + + + [...] file Gets together: Not on file Attends latter day service: Not on file Active member of [...] [employer] Electronically signed by WDAINE Orozco 01/02/2020 13:31 Note: Part of this report was transcribed using voice recognition software. Every effort wa s made to ensure accuracy. However, inadvertent computerized employee health rn errors may be pre sent documented i [...] | | | | | [place] [address] | | | | | | [phone] | | | | | | | | | | | | Julia Fisher, | | | | | | PT | | +--------+ + + + + | 02/18/ | Appointment | Rehabilitation | Erika Ernst, | | | 2019 | | | DO [address] | | | | | | [place] [address] | | | | | | [phone] | | | | | | | | | | | | Genesis Ayon, OT | | +--------+ + + + + | 02/25/ | Office | Primary Care | Erika Ernst, | | | 2019 | Visit | | DO [address] | | | | | | [place] [address] | | | | | | [phone] | | | | | | | [...] | | | | | | [place] [address] | | | | | | [phone] | | | | | | | | +--------+ + + + + | 02/27/ | Appointment | Radiology | Dhara, | | | 2019 | | | DWAINE Ross [address] | | | | | | 4TH [facility], | | | | | | [place] [address] | | | | | | [phone] | | | | | | | | +--------+ + + + + | 03/04/ | Appointment | Rehabilitation | Genesis Ayon OT | | | 2019 | | | | | +--------+ + + + + | 03/09/ | Office | Orthopedic Surgery | Jeffrey Gandhi, | | 2019 | Visit | | [address] | | | | | | [place] [address] | | | | | | [phone] | | | | | | | | +--------+ + + + + | 03/11/ | Appointment | Rehabilitation | Genesis Ayon OT | | 2019 | | | | | +--------+ + + + + | 03/18/ | Appointment | Rehabilitation | eGnesis Ayon OT | | | 2019 | | | | | +--------+ + + + + | 03/19/ | Office | Obstetrics and | Emily Avery | | 2019 | Visit | Gynecology | Radha, DO [address] | | | | | [address] | | | | | | [place], [place] | | | | | | [address] | | | | | | [phone] | | | | | | | [...] | | | | | [place] [address] | | | | | | [phone] | | | | | | | | | | | | Azul Yeboah, | | | | | | MD [address] | | | | | | [place] [place] | | | | | | [place] [address] | | | | | | [phone] | | | | | | | [...] | | | | | | [place] [address] | | | | | | [phone] | | | | | | | [...] - 1.030 | [place] | | | [facility], | | | RONDE | | | [...] | Ketones, | Negative | Negative | [place] | | | Urine | | | [...] + + | [place] [facility] | [address] | [place] | [phone] | | [facility] | | [address] | | | [facility] | | | | + + + + + documented in this encounter Visit Diagnoses + + | Diagnosis | + + | Diarrhea, unspecified type - Primary | + + | Dysuria | + + documented in this encounter"
--- OUTSIDE RECORDS SUMMARY | ~2020-02-18 | XMS | Encounter Summary ---
Demographics + + + | Address | [address] | | | [place] [address] | + + + | Home Phone [...] Team Providers + +------+ + | Care Apron Trimmer Name | Role | Phone | + +------+ + | Erika Ernst DO | PCP | | + +------+ + Reason for Visit + + + | Reason | Comments | + + + | Referral | Pt request a call back today | + + + Encounter Details +--------+ + + + + | Date | Type | Department | Care Team | Description | +--------+ + + + + | 01/07/ | Telephone | [place] [facility] | Erika Ernst, | Referral (Pt request | | 2020 | | [facility] | [address] | a call back today ) | | | | MEDICAL CLINIC [address] | [place] [address] | | | | | [address] [place], | [phone] | | | | | [place] [address] | | | | | | [phone] | | | +--------+ + + + [...] | | | | | [place] [address] | | | | | | [phone] | | | | | | | | | | | | Julia Fisher, | | | | | | PT | | +--------+ + + + + | 02/18/ | Appointment | Rehabilitation | Erika Ernst, | | | 2019 | | | DO [address] | | | | | | [place] [address] | | | | | | [phone] | | | | | | | | | | | | Genesis Ayon, OT | | +--------+ + + + + | 02/25/ | Office | Primary Care | Erika Ernst, | | | 2019 | Visit | | DO [address] | | | | | | [place] [address] | | | | | | [phone] | | | | | | | [...] | | | | | [place] [address] | | | | | | [phone] | | | | | | | | +--------+ + + + + | 02/27/ | Appointment | Radiology | Dhara, | | | 2019 | | | DWAINE Ross [address] | | | | | | 4TH [facility], | | | | | | [place] [address] | | | | | | [phone] | | | | | | | [...] [place] | | | | | | [facility] [place] [address] | | | | | | [phone] | | | | | | | [...] [place] | | | | | | [address] | | | | | | [phone] | | | | | | | [...] | | | | | [place] [address] | | | | | | [phone] | | | | | | | | | | | | Azul Yeboah, | | | | | | MD [address] | | | | | | [place] | | | | | | [place] [address] | | | | | | [phone] | | | | | | | | +--------+ + + + + | 04/08/ | Appointment | Nutrition | Janel Webster | | | 2020 | | | [address], [address] | | +--------+ + + + + | 05/21/ | Office | Neurology | Dhara, | | | 2019 | Visit | | DWA[address] | | | | | | [address] [place], | | | | | | [place] [address] | | | | | | [phone] | | | | | | | | +--------+ + + + + documented as of this encounter Visit Diagnoses Not on filedocumented in this encounter"
--- OUTSIDE RECORDS SUMMARY | ~2020-02-18 | XMS | Encounter Summary ---
Demographics + + + | Address | [address] | | | [place] [address] | + + + | Home Phone [...] Providers + +------+ + | Care Edi Manager Name | Role | Phone | [...] | [address] [place], [place] | [place] [address] | complicated, | | | | [address] | | unspecified whether | | | | [phone] | (Fax) | persistent (Primary | | [...] | | | | | [place] [address] | | | | | | [phone] | | | | | | | | | | | | Julia Fisher, | | | | | | PT | | +--------+ + + + + | 02/18/ | Appointment | Rehabilitation | Erika Ernst, | | | 2019 | | | DO [address] | | | | | | [place] [address] | | | | | | [phone] | | | | | | | | | | | | Genesis Ayon OT | | +--------+ + + + + | 02/25/ | Office | Primary Care | Erika Ernst, | | | 2019 | Visit | | DO [address] | | | | | | [place] [address] | | | | | | [phone] | | | | | | | [...] | | | | | [place] [address] | | | | | | [phone] | | | | | | | | +--------+ + + + + | 02/27/ | Appointment | Radiology | Dhara, | | | 2019 | | | DWAINE Ross [address] | | | | | | [address] [place], | | | | | | [place] [address] | | | | | | [phone] | | | | | | | [...] | | | | | [place] [address] | | | | | | [phone] | | | | | | | [...] [place] | | | | | | [address] | | | | | | [phone] | | | | | | | [...] | | | | | [place] [address] | | | | | | [phone] | | | | | | | | | | | | Azul Yeboah, | | | | | | MD [address] | | | | | | [place] [place] | | | | | | [place] [address] | | | | | | [phone] | | | | | | | [...] | | | | | | [place] [address] | | | | | | [phone] | | | | | | | [...]
--- OUTSIDE RECORDS SUMMARY | ~2020-02-18 | XMS | Encounter Summary ---
Demographics + + + | Address | [address] | | | [place] [address] | + + + | Home Phone [...] Team Providers + +------+ + | Care Rug Designer Name | Role | Phone | [...] | MEDICAL [facility] [address] | [place] [address] | (Primary Dx) | | | | [address] [place], | [phone] | | | | | [place] [address] | | | | | | [phone] | | | +--------+ + + + [...] | 2019 | | | DO [address] | | | | | | [place] [address] | | | | | | [phone] | | | | | | | [...] [address] | | | | | | [phone] | | | | | | | | | | | | Genesis Ayon OT | | +--------+ + + + + | 02/25/ | Office | Primary Care | Erika Ernst, | | | 2019 | Visit | | DO [address] | | | | | | [place] [address] | | | | | | [phone] | | | | | | | [...] | | | | | [place] [address] | | | | | | [phone] | | | | | | | | +--------+ + + + + | 02/27/ | Appointment | Radiology | Dhara, | | | 2019 | | | DWAINE Ross [address] | | | | | | [address] [facility], | | | | | | [place] [address] | | | | | | [phone] | | | | | | | [...] | | | | | [place] [address] | | | | | | [phone] | | | | | | | [...] [place] | | | | | | [address] | | | | | | [phone] | | | | | | | [...] | | | | | [place] [address] | | | | | | [phone] | | | | | | | | | | | | Azul Yeboah, | | | | | | MD [address] | | | | | | [address] [place] | | | | | | [place] [address] | | | | | | [phone] | | | | | | | [...] | | | | | | [place] [address] | | | | | | [phone] | | | | | | | | +--------+ + + + + documented as of this encounter Visit Diagnoses + + | Diagnosis | + + | Essential hypertension - Primary Unspecified essential hypertension | + + documented in this encounter"
--- OUTSIDE RECORDS SUMMARY | ~2020-02-18 | XMS | Encounter Summary ---
Demographics + + + | Address | [address] | | | [place] [address] | + + + | Home Phone [...] Team Providers + +------+ + | Care Tankroom Worker Name | Role | Phone | + +------+ + PCP | Unavailable | + +------+ + Encounter Details +--------+ + + + + | Date | Type | Department | Care Team | Description | +--------+ + + + + | 06/14/ | [facility] [place] [facility] | Denise Mcgregor | | | 2017 | Encounter | [facility] | G, REGULATORY AFFAIRS DIRECTOR | | | | | MEDICAL CL[facility] [address] | | | | | | [facility] [facility], | | | | | | [place] [address] | | | | | | [phone] | | | +--------+ + + + [...] | | | | | [place] [address] | | | | | | [phone] | | | | | | | | | | | | Julia Fisher, | | | | | | PT | | +--------+ + + + + | 02/18/ | Appointment | Rehabilitation | Erika Ernst, | | | 2019 | | | DO [address] | | | | | | [place] [address] | | | | | | [phone] | | | | | | | | | | | | Genesis Ayon, OT | | +--------+ + + + + | 02/25/ | Office | Primary Care | Erika Ernst, | | | 2019 | Visit | | DO [address] | | | | | | [place] [address] | | | | | | [phone] | | | | | | | [...] | | | | | [place] [address] | | | | | | [phone] | | | | | | | | +--------+ + + + + | 02/27/ | Appointment | Radiology | Dhara, | | | 2019 | | | DWAINE Ross [address] | | | | | | 4TH [facility], | | | | | | [place] [address] | | | | | | [phone] | | | | | | | [...] [place] | | | | | | [place] [address] | | | | | | [phone] | | | | | | | [...] [place] | | | | | | [address] | | | | | | [phone] | | | | | | | [...] | | | | | [place] [address] | | | | | | [phone] | | | | | | | | | | | | Azul Yeboah, | | | | | | MD [address] | | | | | | [place] | | | | | | [place] [address] | | | | | | [phone] | | | | | | | [...] | | | | | | [place] [address] | | | | | | [phone] | | | | | | | | +--------+ + + + + documented as of this encounter Visit Diagnoses Not on filedocumented in this encounter"
--- OUTSIDE RECORDS SUMMARY | ~2020-02-18 | XMS | Encounter Summary ---
Demographics + + + | Address | [address] | | | [place] [address] | + + + | Home Phone [...] Providers + +------+ + | Care Supervisor Newspaper Deliveries Name | Role | Phone | + +------+ + | Erika Ernst DO | PCP | | + +------+ + Reason for Visit +--------+ + | Reason | Comments | +--------+ + | LABS | Please call pt today re: labs she's to have done but mother just | | | this am | +--------+ + Encounter Details +--------+ + + + + | Date | Type | Department | Care Team | Description | +--------+ + + + + | 10/08/ | Telephone | [place] [facility] | Erika Ernst, | LABS (Please call pt | | 2020 | | [facility] | DO [address] | today re: labs | | | | MED[facility] [address] | [place] [address] | she's to have done | | | | [address] [place], | [phone] | but mother just | | | | [place] [address] | | this am) | | | | [phone] | | | +--------+ + + + [...] | | | | | [place] [address] | | | | | | [phone] | | | | | | | | | | | | Julia Fisher, | | | | | | PT | | +--------+ + + + + | 02/18/ | Appointment | Rehabilitation | Erika Ernst, | | | 2019 | | | DO [address] | | | | | | [place] [address] | | | | | | [phone] | | | | | | | | | | | | Genesis Ayon OT | | +--------+ + + + + | 02/25/ | Office | Primary Care | Erika Ernst, | | | 2019 | Visit | | DO [address] | | | | | | [place] [address] | | | | | | [phone] | | | | | | | [...] | | | | | [place] [address] | | | | | | [phone] | | | | | | | | +--------+ + + + + | 02/27/ | Appointment | Radiology | Dhara, | | | 2019 | | | DWAINE Ross [address] | | | | | | [address] [place], | | | | | | [place] [address] | | | | | | [phone] | | | | | | | | +--------+ + + + + | 03/04/ | Appointment | Rehabilitation | Genesis Ayon OT | | | 2019 | | | | | +--------+ + + + + | 03/09/ | Office | Orthopedic Surgery | Jeffrey Gandhi, | | | 2019 | Visit | | [place] [address] | | | | | | [place] [address] | | | | | | [phone] | | | | | | | [...] [place] | | | | | | [address] | | | | | | [phone] | | | | | | | [...] | | | | | [place] [address] | | | | | | [phone] | | | | | | | | | | | | Azul Yeboah, | | | | | | MD [address] | | | | | | [place] | | | | | | [place] [address] | | | | | | [phone] | | | | | | | [...] | | | | | | [place] [address] | | | | | | [phone] | | | | | | | | +--------+ + + + + documented as of this encounter Visit Diagnoses Not on filedocumented in this encounter"
--- OUTSIDE RECORDS SUMMARY | ~2020-02-18 | XMS | Encounter Summary ---
Demographics + + + | Address | [address] | | | [place] [address] | + + + | Home Phone [...] Team Providers + +------+ + | Care Administration Dean Name | Role | Phone | + [...] | [facility] [address] | [place] [address] | | | | [address] [place], | [phone] | | | | | [place] [address] | | | | | | [phone] | | | +--------+ + + + [...] 2019 | | | DO [address] | | | | | | [place] [address] | | | | | | [phone] | | | | | | | | | | | | Julia Fisher, | | | | | | PT | | +--------+ + + + + | 02/18/ | Appointment | Rehabilitation | Erika Ernst, | | | 2019 | | | DO [address] | | | | | | [place] [address] | | | | | | [phone] | | | | | | | | | | | | Genesis Ayon OT | | +--------+ + + + + | 02/25/ | Office | Primary Care | Erika Ernst, | | | 2019 | Visit | | DO [address] | | | | | | [place] [address] | | | | | | [phone] | | | | | | | [...] | | | | | [place] [address] | | | | | | [phone] | | | | | | | | +--------+ + + + + | 02/27/ | Appointment | Radiology | Dhara, | | | 2019 | | | DWAINE [address] | | | | | | 4TH [facility], | | | | | | [place] [address] | | | | | | [phone] | | | | | | | | +--------+ + + + + | 03/04/ | Appointment | Rehabilitation | Genesis Ayon OT | | | 2019 | | | | | +--------+ + + + + | 03/09/ | Office | Orthopedic Surgery | Jeffrey Gandhi, | | | 2019 | Visit | | [address] | | | | | | [place] [address] | | | | | | [phone] | | | | | | | [...] | Office | Obstetrics and | Emily Aveyr | | 2019 | Visit | Gynecology | DO Jackelyn Garcia | | | | | | [address] | | | | | | [place] | | | | | | [address] | | | | | | [phone] | | | | | | | [...] | | | | | [place] [address] | | | | | | [phone] | | | | | | | | | | | | Azul Yeboah, | | | | | | MD [address] | | | | | | [address] [address] [place] | | | | | | [place] [address] | | | | | | [phone] | | | | | | | [...] | | | | | | [place] [address] | | | | | | [phone] | | | | | | | | +--------+ + + + + documented as of this encounter Visit Diagnoses Not on filedocumented in this encounter"
--- OUTSIDE RECORDS SUMMARY | ~2020-02-18 | XMS | Encounter Summary ---
Demographics + + + | Address | [address] | | | [place] [address] | + + + | Home Phone [...] Team Providers + +------+ + | Care Liability Claims Adjuster Name | Role | Phone | [...] Only (ear | | 2020 | | [facility] | CC CONTROL BOARD OPERATOR | pain ) | | | | [facility] [address] | | | | | | [address] [place], | | | | | | [place] [address] | | | | | | [phone] | | | +--------+ + + + [...] | | | | | [place], [place] [address] | | | | | | [phone] | | | | | | | | | | | | Julia Fisher, | | | | | | PT | | +--------+ + + + + | 02/18/ | Appointment | Rehabilitation | Erika Ernst, | | | 2019 | | | DO [address] | | | | | | [place] [address] | | | | | | [phone] | | | | | | | | | | | | Genesis Ayon OT | | +--------+ + + + + | 02/25/ | Office | Primary Care | Erika Ernst, | | | 2019 | Visit | | DO [address] [place] | | | | | | [place] [address] | | | | | | [phone] | | | | | | | [...] | | | | | [place] [address] | | | | | | [phone] | | | | | | | | +--------+ + + + + | 02/27/ | Appointment | Radiology | Dhara, | | | 2019 | | | [address]INE [address] | | | | | | [address]TH [place], | | | | | | [place] [address] | | | | | | [phone] | | | | | | | [...] [facility] | | | | | | [place] [address] | | | | | | [phone] | | | | | | | [...] [place] | | | | | | [address] | | | | | | [phone] | | | | | | | [...] | | | | | [place] [address] | | | | | | [phone] | | | | | | | | | | | | Azul Yeboah, | | | | | | MD [address] | | | | | | [place] | | | | | | [place] [address] | | | | | | [phone] | | | | | | | [...] | | | | | | [place] [address] | | | | | | [phone] | | | | | | | | +--------+ + + + + documented as of this encounter Visit Diagnoses Not on filedocumented in this encounter"
--- OUTSIDE RECORDS SUMMARY | ~2020-02-18 | XMS | Encounter Summary ---
Demographics + + + | Address | [address] | | | [place] [address] | + + + | Home Phone [...] Team Providers + +------+ + | Care Cold Rolling Supervisor Name | Role | Phone | [...] | | | of left | [place] [address] | [address] | | | | | ankle, | Phone: | Phone: | | | | | subsequent | [phone] | [phone] | | | | | encounter | Fax: | Fax: | | | | | Procedures | [phone] | [phone] | | | | | MRI Ankle [...] | | | of left | [place] [address] | [address] | | | | | ankle, | Phone: | Phone: | | | | | subsequent | [phone] | [phone] | | | | | encounter | Fax: | Fax: | | | | | Procedures | [phone] | [phone] | | | | | MRI Ankle [...] | [address] | [place] [address] | ligament of left | | | | [place], [place] | [phone] | ankle, subsequent | | | | [address] | | encounter | | | | [phone] | | | +--------+ + + + [...] | 19 | 9 | | [facility]) | | | | | | | [...] | | | | | [place] [address] | | | | | | [phone] | | | | | | | | | | | | Julia Fisher, | | | | | | PT | | +--------+ + + + + | 02/18/ | Appointment | Rehabilitation | Erika Ernst, | | | 2019 | | | DO [address] | | | | | | [place] [address] | | | | | | [phone] | | | | | | | | | | | | Genesis Ayon OT | | +--------+ + + + + | 02/25/ | Office | Primary Care | Erika Ernst, | | | 2019 | Visit | | DO [address] [place] | | | | | | [place] [address] | | | | | | [phone] | | | | | | | [...] | | | | | [place] [address] | | | | | | [phone] | | | | | | | | +--------+ + + + + | 02/27/ | Appointment | Radiology | Dhara, | | | 2019 | | | [address] | | | | | | [address] [place], | | | | | | [place] [address] | | | | | | [phone] | | | | | | | [...] | | | | | | [place] [address] | | | | | | [phone] | | | | | | | [...] [place] | | | | | | [address] | | | | | | [phone] | | | | | | | [...] | | | | | [place], [place] [address] | | | | | | [phone] | | | | | | | | | | | | Azul Yeboah, | | | | | | MD [address] | | | | | | [place] | | | | | | [place] [address] | | | | | | [phone] | | | | | | | [...] | | | | | | [place] [address] | | | | | | [phone] | | | | | | | [...]
--- OUTSIDE RECORDS SUMMARY | ~2020-02-18 | XMS | Encounter Summary ---
Demographics + + + | Address | [address] | | | [place] [address] | + + + | Home Phone [...] Team Providers + +------+ + | Care Echocardiography Tech Name | Role | Phone | [...] Essential | | 2019 | Visit | [facility] | DO [address] | hypertension | | | | MEDICAL CLINIC [address] | [place] [address] | (Primary Dx); | | | | [address] [place], | [phone] | Vitamin D | | | | [place] [address] | | deficiency; | | | | [phone] | | Screening for | | | [...] | | | | | [place] [address] | | | | | | [phone] | | | | | | | | | | | | Julia Fisher, | | | | | | PT | | +--------+ + + + + | 02/18/ | Appointment | Rehabilitation | Erika Ernst, | | | 2019 | | | DO [address] [place] | | | | | | [place] [address] | | | | | | [phone] | | | | | | | | | | | | Genesis Ayon, OT | | +--------+ + + + + | 02/25/ | Office | Primary Care | Erika Ernst, | | | 2019 | Visit | | DO [address] [place] | | | | | | [place] [address] | | | | | | [phone] | | | | | | | [...] | | | | | [place] [address] | | | | | | [phone] | | | | | | | | +--------+ + + + + | 02/27/ | Appointment | Radiology | Dhara, | | 2019 | | | [address] | | | | | | [address] [place], | | | | | | [place] [address] | | | | | | [phone] | | | | | | | [...] ST | | | | | | [place] [address] | | | | | | [phone] | | | | | | | [...] [place] | | | | | | [address] | | | | | | [phone] | | | | | | | [...] | | | | | [place] [address] | | | | | | [phone] | | | | | | | | | | | | Azul Yeboah, | | | | | | [address] | | | | | | [address] [place] | | | | | | [place] [address] | | | | | | [phone] | | | | | | | [...] | | | | | | [place] [address] | | | | | | [phone] | | | | | | | [...] + + | [place] [facility] | [address] | [place] | [phone] | | [facility] | | [address] | | + + + + + [...] + + | [place] [facility] | [address] | [place], [place] | [phone] | | [facility] | | [address] | | + + + + + [...] | mL/min/1.73m2 | [facility] | | | POLISH | RATE,ESTIMATED | | HOSPITAL | | | | mL/min/1.09d7Sxwe than | | LABORATORY | | | [...] 0.4 | 0.0 - 1.2 mg/dL | [facility] | | | Total | | | [...] + + | [place] [facility] | [address] | [place] | [phone] | | [facility] | | [address] | | + + + + + [...]
--- OUTSIDE RECORDS SUMMARY | ~2020-02-18 | XMS | Encounter Summary ---
Demographics + + + | Address | [address] | | | [place] [address] | + + + | Home Phone [...] Providers + +------+ + | Care Delivery Mgr Name | Role | Phone | + [...] 03/15/ | Telephone | [place] [facility] | [facility], | Lab Results | | 2018 | | [facility] | EMERGENCY REGISTRAR | | | | | [facility] [address] | | | | | | [address] [facility] [place], | | | | | | [place] [address] | | | | | | [phone] | | | +--------+ + + + [...] | 2019 | | | DO [facility] | | | | | | [place] [address] | | | | | | [phone] | | | | | | | | | | | | Julia Fisher, | | | | | | PT | | +--------+ + + + + | 05/20/ | Appointment | Rehabilitation | Erika Ernst, | | | 2019 | | | DO [address] | | | | | | [place] [address] | | | | | | [phone] | | | | | | | | | | | | Genesis Ayon OT | | +--------+ + + + + | 02/25/ | Office | Primary Care | Erika Ernst, | | | 2019 | Visit | | DO [address] | | | | | | [place] [address] | | | | | | [phone] | | | | | | | [...] | | | | | [place] [address] | | | | | | [phone] | | | | | | | | +--------+ + + + + | 02/27/ | Appointment | Radiology | Dhara, | | | 2019 | | | [address] | | | | | | [address] [facility] [place], | | | | | | [place] [address] | | | | | | [phone] | | | | | | | [...] | | | | | [place] [address] | | | | | | [phone] | | | | | | | [...] [place] | | | | | | [address] | | | | | | [phone] | | | | | | | [...] [address] | | | | | | [phone] | | | | | | | | | | | | Azul Yeboah, | | | | | | MD [address] | | | | | | [place] [address] [place] | | | | | | [place] [address] | | | | | | [phone] | | | | | | | [...] | | | | | | [place] [address] | | | | | | [phone] | | | | | | | | +--------+ + + + + documented as of this encounter Visit Diagnoses Not on filedocumented in this encounter"
--- OUTSIDE RECORDS SUMMARY | ~2020-02-18 | XMS | Encounter Summary ---
Demographics + + + | Address | [address] | | | [place] [address] | + + + | Home Phone [...] Team Providers + +------+ + | Care Income Tax Manager Name | Role | Phone | + +------+ + PCP | Unavailable | + +------+ + Encounter Details +--------+ + + + + | Date | Type | Department | Care Team | Description | +--------+ + + + + | 07/26/ | [facility] | [place] [facility] | Spenser Roberts NP | | | 2014 | Encounter | HOSPITAL NURSERY | [address], | | | | | [address] [place] | [place] [address] | | | | | [place] | [phone] | | | | | [address] | | | | | | [phone] | | | +--------+ + + + [...] | | | | | [place] [address] | | | | | | [phone] | | | | | | | | | | | | Julia Fisher, | | | | | | PT | | +--------+ + + + + | 02/18/ | Appointment | Rehabilitation | Erika Ernst, | | | 2019 | | | DO [address] | | | | | | [place] [address] | | | | | | [phone] | | | | | | | | | | | | Genesis Ayon OT | | +--------+ + + + + | 02/25/ | Office | Primary Care | Erika Ernst, | | | 2019 | Visit | | DO [address] | | | | | | [place] [address] | | | | | | [phone] | | | | | | | [...] | | | | | [place] [address] | | | | | | [phone] | | | | | | | | +--------+ + + + + | 02/27/ | Appointment | Radiology | Dhara, | | | 2019 | | | [address] | | | | | | [address] [facility], | | | | | | [place] [address] | | | | | | [phone] | | | | | | | [...] [place] | | | | | | [place] [address] | | | | | | [phone] | | | | | | | [...] [place] | | | | | | [address] | | | | | | [phone] | | | | | | | [...] | | | | | [place] [address] | | | | | | [phone] | | | | | | | | | | | | Azul Yeboah, | | | | | | MD [address] | | | | | | [place] | | | | | | [place] [address] | | | | | | [phone] | | | | | | | [...] | | | | | | [place] [address] | | | | | | [phone] | | | | | | | | +--------+ + + + + documented as of this encounter Visit Diagnoses Not on filedocumented in this encounter"
--- OUTSIDE RECORDS SUMMARY | ~2020-02-18 | XMS | Encounter Summary ---
Demographics + + + | Address | [address] | | | [place] [address] | + + + | Home Phone [...] Team Providers + +------+ + | Care Fixed Interest Dealer Name | Role | Phone | + +------+ + | Erika Ernst DO | PCP | | + +------+ + Encounter Details +--------+ + + + + | Date | Type | Department | Care Team | Description | +--------+ + + + + | 07/17/ | [facility] | [place] [facility] | Erika Ernst, | Acute right ankle | | 2019 | Encounter | HOSPITAL XRAY [address] | DO [address] | pain | | | | [address] [place] | [place] [address] | | | | | [place], [place] | [phone] | | | | | [address] | | | | | | [phone] | | | +--------+ + + + [...] | 04/12/20 | | | (VITAMIN D3) 46220 | mouth Once a week | tablet [...] | | | | | [place] [address] | | | | | | [phone] | | | | | | | | | | | | Julia Fisher, | | | | | | PT | | +--------+ + + + + | 02/18/ | Appointment | Rehabilitation | Erika Ernst, | | | 2019 | | | DO [address] | | | | | | [place] [address] | | | | | | [phone] | | | | | | | | | | | | Genesis Ayon OT | | +--------+ + + + + | 02/25/ | Office | Primary Care | Erika Ernst, | | | 2019 | Visit | | DO [address] | | | | | | [place] [address] | | | | | | [phone] | | | | | | | [...] | | | | | [place] [address] | | | | | | [phone] | | | | | | | | +--------+ + + + + | 02/27/ | Appointment | Radiology | Dhara, | | | 2019 | | | [address] | | | | | | 4TH [facility], | | | | | | [place] [address] | | | | | | [phone] | | | | | | | | +--------+ + + + + | 03/04/ | Appointment | Rehabilitation | Genesis Ayon OT | | | 2019 | | | | | +--------+ + + + + | 03/09/ | Office | Orthopedic Surgery | Jeffrey Gandhi, | | | 2019 | Visit | | [address] | | | | | | [place] [address] | | | | | | [phone] | | | | | | | [...] [place] | | | | | | [address] | | | | | | [phone] | | | | | | | [...] | | | | | [place] [address] | | | | | | [phone] | | | | | | | | | | | | Azul Yeboah, | | | | | | [address] | | | | | | [place] | | | | | | [place] [address] | | | | | | [phone] | | | | | | | | +--------+ + + + + | 04/08/ | Appointment | Nutrition | Janel Webster | | | 2019 | | | [place], [place] | | +--------+ + + + + | 05/21/ | Office | Neurology | Dhara, | | | 2020 | Visit | | Cody, WEAVING TEACHER [address] | | | [address] [place], | | | | | | [place] [address] | | | | | | [phone] | | | | | | | [...]
--- OUTSIDE RECORDS SUMMARY | ~2020-02-18 | XMS | Encounter Summary ---
Demographics + + + | Address | [address] | | | [place] [address] | + + + | Home Phone [...] Team Providers + +------+ + | Care Admission Nurse Coordinator Name | Role | Phone | [...] [address] [place] | [place] [address] | | | | | [place], [place] | [phone] | | | | | [address] | | | | | | [phone] | | | +--------+ + + + [...] | | | | | [place] [address] | | | | | | [phone] | | | | | | | | | | | | Julia Fisher, | | | | | | PT | | +--------+ + + + + | 02/18/ | Appointment | Rehabilitation | Erika Ernst, | | | 2019 | | | DO [address] | | | | | | [place] [address] | | | | | | [phone] | | | | | | | | | | | | Genesis Ayon OT | | +--------+ + + + + | 02/25/ | Office | Primary Care | Erika Ernst, | | | 2019 | Visit | | DO [address] | | | | | | [place] [address] | | | | | | [phone] | | | | | | | [...] | | | | | [place] [address] | | | | | | [phone] | | | | | | | | +--------+ + + + + | 02/27/ | Appointment | Radiology | Dhara, | | 2019 | | | [address]WA[address] | | | | | [address] [place], | | | | | | [place] [address] | | | | | | [phone] | | | | | | | | +--------+ + + + + | 03/04/ | Appointment | Rehabilitation | Genesis Ayon OT | | | 2019 | | | | | +--------+ + + + + | 03/09/ | Office | Orthopedic Surgery | Jeffrey Gandhi, | | | 2019 | Visit | | [address] [facility] | | | | | | [place] [address] | | | | | | [phone] | | | | | | | [...] [place] | | | | | | [address] | | | | | | [phone] | | | | | | | [...] | | | | | [place] [address] | | | | | | [phone] | | | | | | | | | | | | Azul Yeboah, | | | | | | MD [address] | | | | | | [place] | | | | | | [place] [address] | | | | | | [phone] | | | | | | | [...] | | | | | | [place] [address] | | | | | | [phone] | | | | | | | [...]
--- OUTSIDE RECORDS SUMMARY | ~2020-02-18 | XMS | Encounter Summary ---
Demographics + + + | Address | [address] | | | [place] [address] | + + + | Home Phone [...] Providers + +------+ + | Care Wire Steward Name | Role | Phone | + [...] | | | | s (de | [place], [place] | [place] [address] | | | | | quervain) | [address] | Phone: | | | | | Pain in | Phone: | [phone] | | | | | right wrist | [phone] | Fax: | | | | | Procedures | Fax: | [phone] | | | | | OT TREAT | [phone] | | +--------+--------+ + + + + Encounter Details +--------+ + + + + | Date | Type | Department | Care Team | Description | +--------+ + + + + | 12/13/ | Hospital | [place] [facility] | Jeffrey Gandhi, | Radial styloid | | 2019 | Encounter | HOSPITAL THERAPY OT | [address] | tenosynovitis | | | | [address] [place] | [place] [address] | (Primary Dx); Right | | | | [place], [place] | [phone] | wrist pain | | | | [address] | | | | | | [phone] | Nakia Koo OT | | +--------+ [...] | 11/26/19 | | | (VITAMIN D3) 97475 | mouth Once a week | tablet | | 19 | 9 | | units TABS | for 16 doses. | | | | | + + + +---------+ + + | D3-50 35645 units | | | 0 | 12/13/19 [...] encounter Progress Notes Nakia Koo, OT - 12/13/2018 1:42 PM PDT [facility] THERAPY OT [address] [place] [address] Occupational Therapy Daily Treatment Note Date: 12/13/2018 Patient Information Patient Name: Andrea Suh Date of : 1990 Age: 28 y.o. History Encounter Diagnoses Code Name Primary? M65.4 Radial styloid tenosynovitis Yes M25.531 Right wrist pain Date of Onset: 07/20/2018 Referring Provider: Jeffrey Gandhi MD Objective Pain Assessment: Pain Rating Pre Assessment: 7 Pain Rating Post Assessment: 5 Location: Mid carpal area Today's Treatment Patient Name: Andrea Suh/: 1990/ Start Time: 1100 Stop time: 1152 Duration: 52 minutes Timed Treatment Codes: 48 minutes # of OT Visits: 21.13 Visit Summary: S: My pain is definitely consistently higher since I hurt it again. The jason tment last week helped and I have been doing the modified exercises. A: Continued focus on s ymptom management with modalities, manual treatment and submaximal strengthening with pt ext eriencing decreased pain following treatment. 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 Interventions OT Interventions: Modality #2 OT INTERVENTION 2: TE - 20 minutes: dart throwers x 15, gentle wrist neutral FA pronated l oading and propriceptive input on tabletop with friction reduced "scrubbing" motion, submaxi mal isometric extension x 5 OT MANUAL THERAPY 1: Manual (15 minutes): Graston technique and gentle PROM to R dorsal wri st and proximally up into the forearm, K taping to R wrist/FA for support OT MODALITY 2: Ultra sound - 13 minutes: 3.3 M.Hz at 1.0 intensity in warm water bath for p enetrating heat to decrease pain and inflammation. 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 She does still hav e deficits in diffusion furnace operator strength and wrist stability as well as pain with daily activities. Her j ob description may be changing which would decrease the physical demands of her work, making it more appropriate for her current status. She continues to benefit from Cloth Winding Supervisor apy to maximize her diffusion furnace operator strength and wrist stability following this injury and return her t o prior level of function. 10/30/2018 - REASON FOR RE-CERTIFICATION: Andrea has received 12 Occupational Therapy treatme nts since 08/07/2018 following her right wrist surgery. She has regained full AROM of the rig ht wrist but continues to have right wrist, diffusion furnace operator and pinch weakness and significant pain (3- 6/10) with daily activities with associated decline in functional performance, in part becau se she still has a lifting restriction of 15 lbs. She has returned to modified work duty. Sh e continues to benefit from Occupational Therapy to [...] in 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, and diffusion furnace operator and pinch weakness in the right [...] ices. Electronically signed by: Nakia Koo OT, 12/13/2018 13:42 Patient Name: Andrea Suh/: 1990/ documented in [...] | | | | | [place] [address] | | | | | | [phone] | | | | | | | | | | | | Julia Fisher, | | | | | | PT | | +--------+ + + + + | 02/18/ | Appointment | Rehabilitation | Erika Ernst, | | 2019 | | | DO [address] | | | | | | [place] [address] | | | | | | [phone] | | | | | | | | | | | | Genesis Ayon, OT | | +--------+ + + + + | 02/25/ | Office | Primary Care | Erika Ernst, | | | 2019 | Visit | | DO [address] | | | | | | [place] [address] | | | | | | [phone] | | | | | | | [...] | | | | | [place] [address] | | | | | | [phone] | | | | | | | | +--------+ + + + + | 02/27/ | Appointment | Radiology | Dhara, | | | 2019 | | | [address] | | | | | | 4TH [facility], | | | | | | [place] [address] | | | | | | [phone] | | | | | | | | +--------+ + + + + | 03/04/ | Appointment | Rehabilitation | Genesis Ayon OT | | | 2019 | | | | | +--------+ + + + + | 03/09/ | Office | Orthopedic Surgery | Jeffrey Gandhi, | | | 2019 | Visit | | MD [address] [facility] | | | | | | [place] [address] | | | | | | [phone] | | | | | | | [...] [place] | | | | | | [address] | | | | | | [phone] | | | | | | | [...] | | | | | [place] [address] | | | | | | [phone] | | | | | | | | | | | | Azul Yeboah, | | | | | | MD [address] | | | | | | [place] | | | | | | [place] [address] | | | | | | [phone] | | | | | | | [...] | | | | | | [place] [address] | | | | | | [phone] | | | | | | | | +--------+ + + + + documented as of this encounter Visit Diagnoses + + | Diagnosis | + + | Radial styloid tenosynovitis - Primary | + + | Right wrist pain Pain in joint, forearm | + + documented in this encounter
--- OUTSIDE RECORDS SUMMARY | ~2020-02-18 | XMS | Encounter Summary ---
Demographics + + + | Address | [address] | | | [place] [address] | + + + | Home Phone [...] Team Providers + +------+ + | Care Drafting Engineer Name | Role | Phone | [...] | | | | [place], [place] | [address] | | | | | [address] | [phone] | | | | | [phone] | | | +--------+ + + + [...] | | | | | [place] [address] | | | | | | [phone] | | | | | | | | | | | | Julia Fisher, | | | | | | PT | | +--------+ + + + + | 02/18/ | Appointment | Rehabilitation | Erika Ernst, | | | 2019 | | | DO [address] | | | | | | [place] [address] | | | | | | [phone] | | | | | | | | | | | | Genesis Ayon OT | | +--------+ + + + + | 02/25/ | Office | Primary Care | Erika Ernst, | | | 2019 | Visit | | DO [address] | | | | | | [place] [address] | | | | | | [phone] | | | | | | | [...] | | | | | [place] [address] | | | | | | [phone] | | | | | | | | +--------+ + + + + | 02/27/ | Appointment | Radiology | Dhara, | | | 2019 | | | [address] | | | | | | [address] [facility], | | | | | | [place] [address] | | | | | | [phone] | | | | | | | [...] | | | | | [place] [address] | | | | | | [phone] | | | | | | | [...] [place] | | | | | | [address] | | | | | | [phone] | | | | | | | [...] | | | | | [place] [address] | | | | | | [phone] | | | | | | | | | | | | Azul Yeboah, | | | | | | MD [address] | | | | | | [place] | | | | | | [place] [address] | | | | | | [phone] | | | | | | | [...] | | | | | | [place] [address] | | | | | | [phone] | | | | | | | [...]
--- OUTSIDE RECORDS SUMMARY | ~2020-02-18 | XMS | Encounter Summary ---
Demographics + + + | Address | [address] | | | [place] [address] | + + + | Home Phone [...] Team Providers + +------+ + | Care Trench Pipe Layer Name | Role | Phone | [...] | [facility] | [place] [address] | (Primary Dx); | | | | [address] [place], | [phone] | Anxiety; PTSD | | | | [place] [address] | | (post-traumatic | | | | [phone] | | stress disorder) | +--------+---------+ + [...] daily. 30 tablet 0 Cholecalciferol (VITAMIN D3) 92384 units TABS Take 1 tablet by mouth Once a week for 16 doses. 16 tablet 0 ferrous sulfate 325 mg tablet Take by mouth. fexofenadine (JOSÉ ANTONOI ALLERGY) 180 mg tablet Take by mouth. [...] | | | | | [place], [place] [address] | | | | | | [phone] | | | | | | | | | | | | Julia Fisher, | | | | | | PT | | +--------+ + + + + | 02/18/ | Appointment | Rehabilitation | Erika Ernst, | | | 2019 | | | DO [address] | | | | | | [place] [address] | | | | | | [phone] | | | | | | | | | | | | Genesis Ayon OT | | +--------+ + + + + | 02/25/ | Office | Primary Care | Erika Ernst, | | | 2019 | Visit | | DO [address] | | | | | | [place] [address] | | | | | | [phone] | | | | | | | [...] | | | | | [place] [address] | | | | | | [phone] | | | | | | | | +--------+ + + + + | 02/27/ | Appointment | Radiology | Dhara, | | | 2019 | | | [address] | | | | | | [address] [facility], | | | | | | [place] [address] | | | | | | [phone] | | | | | | | [...] | | | | | [place] [address] | | | | | | [phone] | | | | | | | [...] [place] | | | | | | [address] | | | | | | [phone] | | | | | | | [...] | | | | | [place] [address] | | | | | | [phone] | | | | | | | | | | | | Azul Yeboah, | | | | | | MD [address] | | | | | | [place] | | | | | | [place] [address] | | | | | | [phone] | | | | | | | [...] | | | | | | [place] [address] | | | | | | [phone] | | | | | | | [...]
--- OUTSIDE RECORDS SUMMARY | ~2020-02-18 | XMS | Encounter Summary ---
Demographics + + + | Address | [address] | | | [place] [address] | + + + | Home Phone [...] Providers + +------+ + | Care Inspector Packer Name | Role | Phone | + +------+ + PCP | Unavailable | + +------+ + Encounter Details +--------+ + + + + | Date | Type | Department | Care Team | Description | +--------+ + + + + | 05/08/ | [facility] | Spenser Roberts NP | | | 2014 | Encounter | [facility] | [address], | | | | | [facility] [address] | [place] [address] | | | | | [address] [facility], | [phone] | | | | | [place] [address] | | | | | | [phone] | | | +--------+ + + + [...] | | | | | [place] [address] | | | | | | [phone] | | | | | | | | | | | | Julia Fisher, | | | | | | PT | | +--------+ + + + + | 02/18/ | Appointment | Rehabilitation | Erika Ernst, | | | 2019 | | | DO [address] | | | | | | [place] [address] | | | | | | [phone] | | | | | | | | | | | | Genesis Ayon OT | | +--------+ + + + + | 02/25/ | Office | Primary Care | Erika Ernst, | | | 2019 | Visit | | DO [address] | | | | | | [place] [address] | | | | | | [phone] | | | | | | | [...] | | | | | [place] [address] | | | | | | [phone] | | | | | | | | +--------+ + + + + | 02/27/ | Appointment | Radiology | Dhara, | | | 2019 | | | [address] | | | | | | [address] [facility], | | | | | | [place] [address] | | | | | | [phone] | | | | | | | | +--------+ + + + + | 03/04/ | Appointment | Rehabilitation | Genesis Ayon OT | | | 2019 | | | | | +--------+ + + + + | 03/09/ | Office | Orthopedic Surgery | Jeffrey Gandhi, | | 2019 | Visit | | [address] | | | | | | [place] [address] | | | | | | [phone] | | | | | | | [...] [place] | | | | | | [address] | | | | | | [phone] | | | | | | | [...] | | | | | [place] [address] | | | | | | [phone] | | | | | | | | | | | | Azul Yeboah, | | | | | | MD [address] | | | | | | [place] | | | | | | [place] [address] | | | | | | [phone] | | | | | | | [...] | | | | | | [place] [address] | | | | | | [phone] | | | | | | | | +--------+ + + + + documented as of this encounter Visit Diagnoses Not on filedocumented in this encounter"
--- OUTSIDE RECORDS SUMMARY | ~2020-02-18 | XMS | Encounter Summary ---
Demographics + + + | Address | [address] | | | [place] [address] | + + + | Home Phone [...] Team Providers + +------+ + | Care Chicken Cleaner Name | Role | Phone | [...] | | | CENTER [address] | [facility] | | | | | DR [place], [place] | [place] [address] | | | | | [address] | [phone] | | | | | [phone] | | | +--------+ + + + [...] | 11/26/19 | | | (VITAMIN D3) 39341 | mouth Once a week | tablet [...] | 2020 | | | DO [facility] | | | | | | [facility], [place] [address] | | | | | | [phone] | | | | | | | | | | | | Julia Fisher, | | | | | | PT | | +--------+ + + + + | 02/18/ | Appointment | Rehabilitation | Erika Ernst, | | | 2019 | | | DO [address] | | | | | | [place] [address] | | | | | | [phone] | | | | | | | | | | | | Genesis Ayon, SUSAN | | +--------+ + + + + | 02/25/ | Office | Primary Care | Erika Ernst, | | | 2019 | Visit | | DO [address] | | | | | | [place] [address] | | | | | | [phone] | | | | | | | [...] | | | | | [place] [address] | | | | | | [phone] | | | | | | | | +--------+ + + + + | 02/27/ | Appointment | Radiology | Dhara, | | | 2019 | | | [address] | | | | | | [address] [place], | | | | | | [place] [address] | | | | | | [phone] | | | | | | | [...] | | | | | [place] [address] | | | | | | [phone] | | | | | | | [...] [place] | | | | | | [address] | | | | | | [phone] | | | | | | | [...] | | | | | [place] [address] | | | | | | [phone] | | | | | | | | | | | | Azul Yeboah, | | | | | | MD [address] | | | | | | [place] | | | | | | [place] [address] | | | | | | [phone] | | | | | | | [...] | | | | | | [place] [address] | | | | | | [phone] | | | | | | | [...] C?MRN: | | | | | | [id number] | | | [id number] | | | riteri | | | [...] | | | St. | | | Yoder | | | y | | | [...] | | | St. | | | Yoder | | | y H. | | [...] | | | ent/e5 | | | [id number] | | | -b14d- | | | 444a-8 | | | 61c-15 | | | [id number] | | | 7078 | | | [...]
--- OUTSIDE RECORDS SUMMARY | ~2020-02-18 | XMS | Encounter Summary ---
Demographics + + + | Address | [address] | | | [place] [address] | + + + | Home Phone [...] Providers + +------+ + | Care Student Ministry Pastor Name | Role | Phone | + [...] | | [facility] [address] | [facility] [place] [address] | suture site on neck | | | | [address] [facility], | [phone] | came open) | | | | [place] [address] | | | | | | [phone] | | | +--------+ + + + [...] | | | | | [place] [address] | | | | | | [phone] | | | | | | | | | | | | Julia Fisher, | | | | | | PT | | +--------+ + + + + | 02/18/ | Appointment | Rehabilitation | Erika Ernst, | | | 2019 | | | DO [address] | | | | | | [place] [address] | | | | | | [phone] | | | | | | | | | | | | Genesis Ayon, OT | | +--------+ + + + + | 02/25/ | Office | Primary Care | Erika Ernst, | | | 2019 | Visit | | DO [address] | | | | | | [place] [address] | | | | | | [phone] | | | | | | | [...] | | | | | [place] [address] | | | | | | [phone] | | | | | | | | +--------+ + + + + | 02/27/ | Appointment | Radiology | Dhara, | | | 2019 | | | [address] | | | | | | [address] [place], | | | | | | [place] [address] | | | | | | [phone] | | | | | | | | +--------+ + + + + | 03/04/ | Appointment | Rehabilitation | Genesis Ayon OT | | | 2019 | | | | | +--------+ + + + + | 03/09/ | Office | Orthopedic Surgery | Jeffrey Gandhi, | | | 2019 | Visit | | [place] [address] [facility] | | | | | | [place] [address] | | | | | | [phone] | | | | | | | [...] [place] | | | | | | [address] | | | | | | [phone] | | | | | | | [...] | | | | | [place] [address] | | | | | | [phone] | | | | | | | | | | | | Azul Yeboah, | | | | | | MD [address] | | | | | | [place] | | | | | | [place] [address] | | | | | | [phone] | | | | | | | [...] | | | | | | [place] [address] | | | | | | [phone] | | | | | | | | +--------+ + + + + documented as of this encounter Visit Diagnoses Not on filedocumented in this encounter"
--- OUTSIDE RECORDS SUMMARY | ~2020-02-18 | XMS | Encounter Summary ---
Demographics + + + | Address | [address] | | | [place] [address] | + + + | Home Phone [...] Team Providers + +------+ + | Care Land Checker Name | Role | Phone | [...] | | | to excess | [place] [address] | | | | | | calories | Phone: | | | | | | without | [phone] | | | | | | serious | Fax: | | | | | | comorbidity | [phone] | | | | | | with [...] | | | | | MD MED | | | | | [...] | SERVICES [address] | [place] [address] | malignant; Morbid | | | | DR [place], [place] | [phone] | obesity (HCC); Body | | | | [address] | | mass index | | | | [phone] | Janel Webster, | 50.0-59.9, adult | [...] 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 Pt says she has been feeling sick for 5-6 weeks wi th respiratory symptoms. She says she has been seeing her asphalt blender for her asthma but w orries it [...] | | | | | [place] [address] | | | | | | [phone] | | | | | | | | | | | | Julia Fisher, | | | | | | PT | | +--------+ + + + + | 02/18/ | Appointment | Rehabilitation | Erika Ernst, | | | 2019 | | | DO [address] | | | | | | [place] [address] | | | | | | [phone] | | | | | | | | | | | | Genesis Ayon OT | | +--------+ + + + + | 02/25/ | Office | Primary Care | Erika Ernst, | | | 2019 | Visit | | DO [address] | | | | | | [place] [address] | | | | | | [phone] | | | | | | | [...] | | | | | | [place] [address] | | | | | | [phone] | | | | | | | | +--------+ + + + + | 02/27/ | Appointment | Radiology | Dhara, | | | 2019 | | | DWA[address] Ross [address] | | | | | [address] [place], | | | | | | [place] [address] | | | | | | [phone] | | | | | | | [...] ST | | | | | | [place] [address] | | | | | | [phone] | | | | | | | [...] [place] | | | | | | [address] | | | | | | [phone] | | | | | | | [...] | | | | | [place] [address] | | | | | | [phone] | | | | | | | | | | | | Azul Yeboah, | | | | | | MD [address] | | | | | | [place] | | | | | | [place] [address] | | | | | | [phone] | | | | | | | [...] | | | | | | [place] [address] | | | | | | [phone] | | | | | | | [...]
--- OUTSIDE RECORDS SUMMARY | ~2020-02-18 | XMS | Encounter Summary ---
Demographics + + + | Address | [address] | | | [place] [address] | + + + | Home Phone [...] Providers + +------+ + | Care Window Air Conditioner Installer Name | Role | Phone | + +------+ + PCP | Unavailable | + +------+ + Encounter Details +--------+ + + + + | Date | Type | Department | Care Team | Description | +--------+ + + + + | 09/21/ | [facility] | Heike Rodriguez, | | | 2013 | Encounter | HOSPITAL EMERGENCY | SILVERSMITH APPRENTICE [address] | | | | | CENTER [address] | [place] | | | | | [place] | [address] | | | | | [address] | | | | | | [phone] | | | +--------+ + + + [...] | | | | | [place] [address] | | | | | | [phone] | | | | | | | | | | | | Julia Fisher, | | | | | | PT | | +--------+ + + + + | 02/18/ | Appointment | Rehabilitation | Erika Ernst, | | | 2019 | | | DO [address] | | | | | | [place] [address] | | | | | | [phone] | | | | | | | | | | | | Genesis Ayon, OT | | +--------+ + + + + | 02/25/ | Office | Primary Care | Erika Ernst, | | | 2019 | Visit | | DO [address] | | | | | | [place] [address] | | | | | | [phone] | | | | | | | [...] | | | | | [place] [address] | | | | | | [phone] | | | | | | | | +--------+ + + + + | 02/27/ | Appointment | Radiology | Dhara, | | | 2019 | | | [address]INE [address] | | | | | | 4TH [facility], | | | | | | [place] [address] | | | | | | [phone] | | | | | | | | +--------+ + + + + | 03/04/ | Appointment | Rehabilitation | Genesis Ayon OT | | | 2019 | | | | | +--------+ + + + + | 03/09/ | Office | Orthopedic Surgery | Jfefrey Gandhi, | | 2019 | Visit | | [address] | | | | | | [place] [address] | | | | | | [phone] | | | | | | | [...] | | | | | | [place] | | | | | | [address] | | | | | | [phone] | | | | | | | [...] | | | | | [place] [address] | | | | | | [phone] | | | | | | | | | | | | Azul Yeboah, | | | | | | MD [address] | | | | | | [place] | | | | | | [place] [address] | | | | | | [phone] | | | | | | | [...] | | | | | | [place] [address] | | | | | | [phone] | | | | | | | | +--------+ + + + + documented as of this encounter Visit Diagnoses Not on filedocumented in this encounter"
--- OUTSIDE RECORDS SUMMARY | ~2020-02-18 | XMS | Encounter Summary ---
Demographics + + + | Address | [address] | | | [place] [address] | + + + | Home Phone [...] Providers + +------+ + | Care Conservation Biology Professor Name | Role | Phone | + +------+ + PCP | Unavailable | + +------+ + Encounter Details +--------+ + + + + | Date | Type | Department | Care Team | Description | +--------+ + + + + | 11/17/ | [facility] | Denise Mcgregor | | | 2016 | Encounter | [facility] | G, TUNNEL DRIER OPERATOR | | | | | MEDICAL CLINIC [address] | | | | | | 4TH [facility] [place], | | | | | | [place] [address] | | | | | | [phone] | | | +--------+ + + + [...] | | | | | [place] [address] | | | | | | [phone] | | | | | | | | | | | | Julia Fisher, | | | | | | PT | | +--------+ + + + + | 02/18/ | Appointment | Rehabilitation | Erika Ernst, | | | 2019 | | | DO [address] | | | | | | [place] [address] | | | | | | [phone] | | | | | | | | | | | | Genesis Ayon OT | | +--------+ + + + + | 02/25/ | Office | Primary Care | Erika Ernst, | | | 2019 | Visit | | DO [address] | | | | | | [place] [address] | | | | | | [phone] | | | | | | | [...] | | | | | [place] [address] | | | | | | [phone] | | | | | | | | +--------+ + + + + | 02/27/ | Appointment | Radiology | Dhara, | | | 2019 | | | DWAINE [address] | | | | | | 4TH [facility], | | | | | | [place] [address] | | | | | | [phone] | | | | | | | [...] [place] | | | | | | [place] [address] | | | | | | [phone] | | | | | | | [...] [place] | | | | | | [address] | | | | | | [phone] | | | | | | | [...] | | | | | [place] [address] | | | | | | [phone] | | | | | | | | | | | | Azul Yeboah, | | | | | | MD [address] | | | | | | [place] | | | | | | [place] [address] | | | | | | [phone] | | | | | | | [...] | | | | | | [place] [address] | | | | | | [phone] | | | | | | | | +--------+ + + + + documented as of this encounter Visit Diagnoses Not on filedocumented in this encounter"
--- OUTSIDE RECORDS SUMMARY | ~2020-02-18 | XMS | Encounter Summary ---
Demographics + + + | Address | [address] | | | [place] [address] | + + + | Home Phone [...] Team Providers + +------+ + | Care Flagstone Layer Name | Role | Phone | [...] | [place], [place] | [place] [address] | | | | | [address] | [phone] | | | | | [phone] | | | +--------+ + + + [...] 2019 | | | DO [address] | | | | | | [place] [address] | | | | | | [phone] | | | | | | | | | | | | Julia Fisher, | | | | | | PT | | +--------+ + + + + | 02/18/ | Appointment | Rehabilitation | Erika Ernst, | | | 2019 | | | DO [address] | | | | | | [place] [address] | | | | | | [phone] | | | | | | | | | | | | Genesis Ayon OT | | +--------+ + + + + | 02/25/ | Office | Primary Care | Erika Ernst, | | | 2019 | Visit | | DO [address] | | | | | | [place] [address] | | | | | | [phone] | | | | | | | [...] | | | | | [place] [address] | | | | | | [phone] | | | | | | | | +--------+ + + + + | 02/27/ | Appointment | Radiology | Dhara, | | | 2019 | | | DWAINE Ross [address] | | | | | | 4TH [facility], | | | | | | [place] [address] | | | | | | [phone] | | | | | | | | +--------+ + + + + | 03/04/ | Appointment | Rehabilitation | Genessi Ayon OT | | | 2019 | | | | | +--------+ + + + + | 03/09/ | Office | Orthopedic Surgery | Jeffrey Gandhi, | | | 2019 | Visit | | [address] [place] | | | | | | [place] [address] | | | | | | [phone] | | | | | | | [...] [place] | | | | | | [address] | | | | | | [phone] | | | | | | | [...] | | | | | [place] [address] | | | | | | [phone] | | | | | | | | | | | | Azul Yeboah, | | | | | | MD [address] | | | | | | [place] | | | | | | [place] [address] | | | | | | [phone] | | | | | | | [...] | | | | | | [place] [address] | | | | | | [phone] | | | | | | | | +--------+ + + + + documented as of this encounter Visit Diagnoses Not on filedocumented in this encounter"
--- OUTSIDE RECORDS SUMMARY | ~2020-02-18 | XMS | Encounter Summary ---
Demographics + + + | Address | [address] | | | [place] [address] | + + + | Home Phone [...] Team Providers + +------+ + | Care Qc Lab Technician Name | Role | Phone [...] | | | DR MYRA [place], | [facility] [place], [place] | | | | | [place] [address] | [address] | | | | | [phone] | [phone] | | | | | | | [...] mouth. Once a week Cholecalciferol (VITAMIN D3) 47104 units TABS Take 1 tablet by mouth [...] facility-administered medications on file prior to visit. Hand Cutter Apprentice history: Menstrual history: Patient's last menstrual period was 07/15/2019 (exact date). Control: condoms STD history: none Sexual history: Patient is sexuall active with Male. STD risk: very low risk of STD exposure. Testing desired: none ROS: General: negative -Urinary: negative -Hand Cutter Apprentice: none. Psychiatric: negative PE : Vitals: 07/17/19 [...] Time: 06/11/19 16:56 Result Value Ref Range [place] Screen Negative Negative Culture, Strep A, Throat [...] This documentation prepared by Dioni Amaya medical officer psychiatry. All aspects of this chart revie wed [...] | | | | | [place] [address] | | | | | | [phone] | | | | | | | | | | | | Julia Fisher, | | | | | | PT | | +--------+ + + + + | 02/18/ | Appointment | Rehabilitation | Erika Ernst, | | | 2019 | | | DO [address] | | | | | | [place] [address] | | | | | | [phone] | | | | | | | | | | | | Ayon, Genesis, OT | | +--------+ + + + + | 02/25/ | Office | Primary Care | Erika Ernst, | | | 2019 | Visit | | [address] | | | | | | [place] [address] | | | | | | [phone] | | | | | | | [...] | | | | | [place] [address] | | | | | | [phone] | | | | | | | | +--------+ + + + + | 02/27/ | Appointment | Radiology | Dhara, | | | 2019 | | | [address]INE Ross [address] | | | | | | [address] [place], | | | | | | [place] [address] | | | | | | [phone] | | | | | | | [...] HOSPITAL | | | | | | [place] [address] | | | | | | [phone] | | | | | | | [...] [place] | | | | | | [address] | | | | | | [phone] | | | | | | | [...] | | | | | [place] [address] | | | | | | [phone] | | | | | | | | | | | | Azul Yeboah, | | | | | | [address] | | | | | | [place] | | | | | | [place] [address] | | | | | | [phone] | | | | | | | [...] | | | | | | [place] [address] | | | | | | [phone] | | | | | | | | +--------+ + + + + documented as of this encounter Visit Diagnoses + + | Diagnosis | + + | Dysmenorrhea - Primary | + + documented in this encounter
--- OUTSIDE RECORDS SUMMARY | ~2020-02-18 | XMS | Encounter Summary ---
Demographics + + + | Address | [address] | | | [place] [address] | + + + | Home Phone [...] Team Providers + +------+ + | Care Demographic Analyst Name | Role | Phone | [...] | [facility] [address] | [place] [address] | | | | [address] [place], | [phone] | | | | | [place] [address] | | | | | | [phone] | | | +--------+ + + + [...] [address] | | | | | | [phone] | | | | | | | | | | | | Julia Fisher, | | | | | | PT | | +--------+ + + + + | 02/18/ | Appointment | Rehabilitation | Erika Ernst, | | | 2019 | | | DO [address] | | | | | | [place] [address] | | | | | | [phone] | | | | | | | | | | | | Genesis Ayon OT | | +--------+ + + + + | 02/25/ | Office | Primary Care | Erika Ernst, | | | 2019 | Visit | | DO [address] | | | | | | [place] [address] | | | | | | [phone] | | | | | | | [...] | | | | | [place] [address] | | | | | | [phone] | | | | | | | | +--------+ + + + + | 02/27/ | Appointment | Radiology | Dhara, | | | 2019 | | | DWA[address] | | | | | | [address] [facility], | | | | | | [place] [address] | | | | | | [phone] | | | | | | | [...] [place] | | | | | | [place] [address] | | | | | | [phone] | | | | | | | [...] [place] | | | | | | [address] | | | | | | [phone] | | | | | | | [...] | | | | | [place] [address] | | | | | | [phone] | | | | | | | | | | | | Azul Yeboah, | | | | | | MD [address] | | | | | | [place] | | | | | | [place] [address] | | | | | | [phone] | | | | | | | [...] | | | | | | [place] [address] | | | | | | [phone] | | | | | | | | +--------+ + + + + documented as of this encounter Visit Diagnoses Not on filedocumented in this encounter"
--- OUTSIDE RECORDS SUMMARY | ~2020-02-18 | XMS | Encounter Summary ---
Demographics + + + | Address | [address] | | | [place] [address] | + + + | Home Phone [...] Team Providers + +------+ + | Care Flight Coordinator Name | Role | Phone | [...] MEDICAL CLINIC [address] | [facility] [place] [address] | | | | | [address] [place], | [phone] | | | | | [place] [address] | | | | | | [phone] | | | +--------+ + + + [...] | | | | | [place] [address] | | | | | | [phone] | | | | | | | | | | | | Julia Fisher, | | | | | | PT | | +--------+ + + + + | 02/18/ | Appointment | Rehabilitation | Erika Ernst, | | | 2019 | | | DO [address] [place] | | | | | | [place] [address] | | | | | | [phone] | | | | | | | | | | | | Genesis Ayon OT | | +--------+ + + + + | 02/25/ | Office | Primary Care | Erika Ernst, | | | 2019 | Visit | | DO [address] | | | | | | [place] [address] | | | | | | [phone] | | | | | | | [...] | | | | | | [place] [address] | | | | | | [phone] | | | | | | | | +--------+ + + + + | 02/27/ | Appointment | Radiology | Dhara, | | | 2019 | | | [address] | | | | | | 4TH [facility], | | | | | | [place] [address] | | | | | | [phone] | | | | | | | [...] | | | | | [place] [address] | | | | | | [phone] | | | | | | | [...] [place] | | | | | | [address] | | | | | | [phone] | | | | | | | [...] | | | | | [place] [address] | | | | | | [phone] | | | | | | | | | | | | Azul Yeboah, | | | | | | [address] | | | | | | [place] | | | | | | [place] [address] | | | | | | [phone] | | | | | | | [...] | | | | | | [place] [address] | | | | | | [phone] | | | | | | | | +--------+ + + + + documented as of this encounter Visit Diagnoses Not on filedocumented in this encounter"
--- OUTSIDE RECORDS SUMMARY | ~2020-02-18 | XMS | Encounter Summary ---
Demographics + + + | Address | [address] | | | [place] [address] | + + + | Home Phone [...] Providers + +------+ + | Care Construction Teacher Name | Role | Phone | [...] | MEDICAL [facility]IN[facility] [address] | [place] [address] | (Primary Dx); | | | | [address] [place], | [phone] | Environmental | | | | [place] [address] | | allergies; Vitamin D | | | | [phone] | | deficiency | +--------+---------+ + + [...] day 6 tablet 0 Cholecalciferol (VITAMIN D3) 22945 units TABS Take 1 tablet by mouth [...] | | | | | [place] [address] | | | | | | [phone] | | | | | | | | | | | | Julia Fisher, | | | | | | PT | | +--------+ + + + + | 02/18/ | Appointment | Rehabilitation | Erika Ernst, | | | 2019 | | | DO [address] | | | | | | [place] [address] | | | | | | [phone] | | | | | | | | | | | | Genesis Ayon OT | | +--------+ + + + + | 02/25/ | Office | Primary Care | Erika Ernst, | | | 2019 | Visit | | DO [address] | | | | | | [place] [address] | | | | | | [phone] | | | | | | | [...] | | | | | [place] [address] | | | | | | [phone] | | | | | | | | +--------+ + + + + | 02/27/ | Appointment | Radiology | Dhara, | | 2019 | | | [address] | | | | | | [facility]TH [facility], | | | | | | [place] [address] | | | | | | [phone] | | | | | | | | +--------+ + + + + | 03/04/ | Appointment | Rehabilitation | Genesis Ayon OT | | | 2019 | | | | | +--------+ + + + + | 03/09/ | Office | Orthopedic Surgery | Jeffrey Gandhi, | | | 2019 | Visit | | MD [address] [facility] | | | | | | [place] [address] | | | | | | [phone] | | | | | | | [...] [place] | | | | | | [address] | | | | | | [phone] | | | | | | | [...] | | | | | [place] [address] | | | | | | [phone] | | | | | | | | | | | | Azul Yeboah, | | | | | | MD [address] | | | | | | [place] | | | | | | [place] [address] | | | | | | [phone] | | | | | | | | +--------+ + + + + | 04/08/ | Appointment | Nutrition | Janel Webster | | | 2019 | | | [place], KHOA | | +--------+ + + + + | 05/21/ | Office | Neurology | Dhara, | | | 2019 | Visit | | Cody, FRONT DESK CLERK [address] | | | | | | 4TH [facility] [place], | | | | | | [place] [address] | | | | | | [phone] | | | | | | | [...]
--- OUTSIDE RECORDS SUMMARY | ~2020-02-18 | XMS | Encounter Summary ---
Demographics + + + | Address | [address] | | | [place] [address] | + + + | Home Phone [...] Team Providers + +------+ + | Care Documentation Billing Clerk Name | Role | Phone | [...] | CENTER [address] | [facility] | | | | | [address] [place] | [place] [address] | | | | | [address] | [phone] | | | | | [phone] | | | +--------+ + + + [...] | | | | | [place] [address] | | | | | | [phone] | | | | | | | | | | | | Julia Fisher, | | | | | | PT | | +--------+ + + + + | 02/18/ | Appointment | Rehabilitation | Erika Ernst, | | | 2019 | | | DO [address] [place] | | | | | | [place] [address] | | | | | | [phone] | | | | | | | | | | | | Genesis Ayon, SUSAN | | +--------+ + + + + | 02/25/ | Office | Primary Care | Erika Ernst, | | | 2019 | Visit | | DO [address] [place] | | | | | | [place] [address] | | | | | | [phone] | | | | | | | [...] | | | | | | [place] [address] | | | | | | [phone] | | | | | | | | +--------+ + + + + | 02/27/ | Appointment | Radiology | Dhara, | | | 2019 | | | [address] | | | | | | 4TH [facility], | | | | | | [place] [address] | | | | | | [phone] | | | | | | | | +--------+ + + + + | 03/04/ | Appointment | Rehabilitation | Genesis Ayon OT | | | 2019 | | | | | +--------+ + + + + | 03/09/ | Office | Orthopedic Surgery | Jeffrey Gandhi, | | | 2019 | Visit | | [address] [facility] | | | | | | [place] [address] | | | | | | [phone] | | | | | | | [...] [place] | | | | | | [address] | | | | | | [phone] | | | | | | | [...] | | | | | [place] [address] | | | | | | [phone] | | | | | | | | | | | | Azul Yeboah, | | | | | | MD [address] | | | | | | [place] | | | | | | [place] [address] | | | | | | [phone] | | | | | | | [...] | | | | | | [place] [address] | | | | | | [phone] | | | | | | | | +--------+ + + + + documented as of this encounter Visit Diagnoses Not on filedocumented in this encounter"
--- OUTSIDE RECORDS SUMMARY | ~2020-02-18 | XMS | Encounter Summary ---
Demographics + + + | Address | [address] | | | [place] [address] | + + + | Home Phone [...] Team Providers + +------+ + | Care Lotus Notes Developer Name | Role | Phone | [...] | 2019 | | HOSPITAL EMER[facility]ENCY | RECORDS ASSOCIATE [address] | without hematuria | | | | CENTER [address] | [place] | (Primary Dx); | | | | [place] | [address] | Vomiting, | | | | [address] | | intractability of | | | | [phone] | | vomiting not | | | [...] Care Everywhere.Urinary Tract I nfections (UTIs), Understanding (Chinese)documented in this encounter Medications at Time of [...] | | | | | [place] [address] | | | | | | [phone] | | | | | | | | | | | | Julia Fisher, | | | | | | PT | | +--------+ + + + + | 02/18/ | Appointment | Rehabilitation | Erika Ernst, | | | 2019 | | | DO [address] [place] | | | | | | [place] [address] | | | | | | [phone] | | | | | | | | | | | | Genesis Ayon, OT | | +--------+ + + + + | 02/25/ | Office | Primary Care | Erika Ernst, | | | 2019 | Visit | | DO [address] [place] | | | | | | [place] [address] | | | | | | [phone] | | | | | | | [...] | | | | | [place] [address] | | | | | | [phone] | | | | | | | | +--------+ + + + + | 02/27/ | Appointment | Radiology | Dhara, | | | 2019 | | | [address] | | | | | | 4TH [facility], | | | | | | [place] [address] | | | | | | [phone] | | | | | | | | +--------+ + + + + | 03/04/ | Appointment | Rehabilitation | Genesis Ayon OT | | | 2019 | | | | | +--------+ + + + + | 03/09/ | Office | Orthopedic Surgery | Jeffrey Gandhi, | | | 2019 | Visit | | [address] [facility] | | | | | | [place] [address] | | | | | | [phone] | | | | | | | [...] [place] | | | | | | [address] | | | | | | [phone] | | | | | | | [...] | | | | | [place] [address] | | | | | | [phone] | | | | | | | | | | | | Azul Yeboah, | | | | | | MD [address] | | | | | | [place] | | | | | | [place] [address] | | | | | | [phone] | | | | | | | [...] | | | | | | [place] [address] | | | | | | [phone] | | | | | | | [...] Culture | >100,000 CFU/ml Mixed | | [place] | | | | mart (multiple | [...] + + | [place] [facility] | [address] | [place] | [phone] | | HOSPITAL LAB[facility]ORY | | [address] | | + + + + + [...] - 1.030 | [place] | | | [place], | | | [facility] | | | [...] + + | [place] [facility] | [address] | [place] | [phone] | | [facility] | | [address] | | + + + + + [...] + + | [facility] | [address] | [place] | [phone] | | [facility] | | [address] | | + + + + + [...] + + | [facility] [facility] | [address] | [place] | [phone] | | [facility] | | [address] | | + + + + + [...] | mL/min/1.73m2 | [facility] | | | [facility] | RATE,ESTIMATED | | [facility] | | | | mL/min/1.57b5Urtl than | | LABORATORY | | | [...] + + | [facility] | [address] | [place], [place] | [phone] | | [facility] | | [address] | | + + + + + [...] + + | [facility] | [address] | [place] | [phone] | | [facility] | | [address] | | + + + + + [...]
--- OUTSIDE RECORDS SUMMARY | ~2020-02-18 | XMS | Encounter Summary ---
Demographics + + + | Address | [address] | | | [place] [address] | + + + | Home Phone [...] Providers + +------+ + | Care Forming Process Worker Name | Role | Phone | [...] | Encounter | TORE[facility] | LISA Abad | | | | | [facility] | | | | | | [address] [place] | | | | | | [place] | | | | | | [address] | | | | | | [phone] | | | +--------+ + + + [...] | 04/12/20 | | | (VITAMIN D3) 24060 | mouth Once a week | tablet [...] | | | 9 | | ([place] [place]) | | [...] | | | | | [place] [address] | | | | | | [phone] | | | | | | | | | | | | Julia Fisher, | | | | | | PT | | +--------+ + + + + | 02/18/ | Appointment | Rehabilitation | Erika Ernst, | | | 2019 | | | DO [address] | | | | | | [place] [address] | | | | | | [phone] | | | | | | | | | | | | [facility] | | +--------+ + + + + | 02/25/ | Office | Primary Care | Erika Ernst, | | | 2019 | Visit | | DO [address] | | | | | | [place] [address] | | | | | | [phone] | | | | | | | [...] | | | | | [place] [address] | | | | | | [phone] | | | | | | | | +--------+ + + + + | 02/27/ | Appointment | Radiology | Dhara, | | | 2019 | | | DWAINE [address] | | | [address] [place], | | | | | | [place] [address] | | | | | | [phone] | | | | | | | | +--------+ + + + + | 03/04/ | Appointment | Rehabilitation | [facility] | | | 2019 | | | | | +--------+ + + + + | 03/09/ | Office | Orthopedic Surgery | Jeffrey Gandhi, | | | 2019 | Visit | | [address] | | | | | | [place] [address] | | | | | | [phone] | | | | | | | [...] [place] | | | | | | [address] | | | | | | [phone] | | | | | | | [...] | | | | | [place] [address] | | | | | | [phone] | | | | | | | | | | | | Azul Yeboah, | | | | | | [address] | | | | | | [place] | | | | | | [place] [address] | | | | | | [phone] | | | | | | | [...] | | | | | | [place] [address] | | | | | | [phone] | | | | | | | [...]
--- OUTSIDE RECORDS SUMMARY | ~2020-02-18 | XMS | Encounter Summary ---
Demographics + + + | Address | [address] | | | [place] [address] | + + + | Home Phone [...] Team Providers + +------+ + | Care Heating And Air Conditioning Mechanic Name | Role | Phone | [...] Closed | | Radiology | Diagnoses | Michael, | Cc Wgr Xray | | | | | De | Usha | [address] | | | | | Karolyn's | MD Precious | [address] | | | | | tenosynoviti | [address] | [place], [place] | | | | | s, right | [address] | [address] | | | | | Place of | [place], | Phone: | | | | | occurrence, | [place] [address] | [phone] | | | | | industrial | Phone: | Fax: | | | | | places and | [phone] | [phone] | | | | | premises | Fax: | | | | | | Procedures | [phone] | | | | | | MRI Wrist | | | | | | | [...] Closed | | Radiology | Diagnoses | Michael, | Cc Wgr Xray | | | | | De | Usha | [address] | | | | | Karolyn's | MD Precious | [address] | | | | | tenosynoviti | [address] | [place], [place] | | | | | s, right | [address] | [address] | | | | | Place of | [facility], | Phone: | | | | | occurrence, | [place] [address] | [phone] | | | | | industrial | Phone: | Fax: | | | | | places and | [phone] | [phone] | | | | | premises | Fax: | | | | | | Procedures | [phone] | | | | | | MRI Wrist | | | | | | | Right wo | | | | | | | Contrast | | | +--------+--------+ + + + + Encounter Details +--------+ + + + + | Date | Type | Department | Care Team | Description | +--------+ + + + + | 12/08/ | Hospital | [facility] | Usha Rodriguez | [facility] | | 2020 | Encounter | Hospital MRI [address] | MD Precious [address] | tenosynovitis, | | | | [address] | [address] [place] | right; Place of | | | | [place], [place] | [place] [address] | occurrence, | | | | [address] | [phone] | industrial places | | | | [phone] | | and premises | +--------+ + + + + Social [...] 2 puffs by | | 1 | 11/14/20 | | | MCG/ACT inhaler | mouth [...] A SMALL AMOUNT | | 0 | 05/2020 | | | CREA | to affected [...] | | | | | [place] [address] | | | | | | [phone] | | | | | | | | | | | | Julia Fisher, | | | | | | PT | | +--------+ + + + + | 02/18/ | Appointment | Rehabilitation | Erika Ernst, | | | 2019 | | | DO [address] [place] | | | | | | [place] [address] | | | | | | [phone] | | | | | | | | | | | | Genesis Ayon OT | | +--------+ + + + + | 02/25/ | Office | Primary Care | Erika Ernst, | | | 2019 | Visit | | [address] [place] [address] | | | | | | [place] [address] | | | | | | [phone] | | | | | | | [...] | | | | | [place] [address] | | | | | | [phone] | | | | | | | | +--------+ + + + + | 02/27/ | Appointment | Radiology | Dhara, | | | 2019 | | | DWAINE Ross [address] | | | | | [address] [facility], | | | | | | [place] [address] | | | | | | [phone] | | | | | | | | +--------+ + + + + | 03/04/ | Appointment | Rehabilitation | Genesis Ayon OT | | | 2019 | | | | | +--------+ + + + + | 03/09/ | Office | Orthopedic Surgery | Jeffrey Gandhi, | | | 2019 | Visit | | [address] | | | | | | [place] [address] | | | | | | [phone] | | | | | | | [...] [place] | | | | | | [address] | | | | | | [phone] | | | | | | | [...] | | | | | [place] [address] | | | | | | [phone] | | | | | | | | | | | | Azul Yeboah, | | | | | | [address] | | | | | | [place] | | | | | | [place] [address] | | | | | | [phone] | | | | | | | [...] | | | | | | [place] [address] | | | | | | [phone] | | | | | | | | +--------+ + + + + documented as of this encounter Procedures + +--------+ + + + | Procedure Name | Priori | Date/Time | Associated Diagnosis | Comments | | | ty | | | | + +--------+ + + + | MRI WRIST RIGHT WO | Routin | 12/09/2019 | Eason'kim | Results for this | | CONTRAST | e | 7:08 PM | tenosynovitis, right | procedure are in the | | | | PDT | Place of | results section. | | | | | occurrence, | | | | | | industrial places | | | | | | and premises | | + +--------+ + + + documented in this encounter Results MRI Wrist Right wo Contrast (12/09/2019 7:08 PM PDT) + + | Specimen | + + | | + + + + + | Impressions | Performed At | + + + | 1. Postsurgical changes noted distal ulna compatible with extensor | [facility] | | carpi ulnaris tenosynovectomy. 2. No acute finding. 3. Minimal | | | degenerative change noted hamate. 4. No obvious tenosynovitis. | | | Dictated by: Chris Bedolla | | + + + + + + | Narrative | Performed At | + + + | EXAMINATION: MRI WRIST RIGHT WO CONTRAST HISTORY: Persistent | [facility] | | pain postop-de Quervain's release, [facility] tenosynovectomy COMPARISON | | | STUDY: Wrist x-ray 11/05/2019, 05/10/2019, 01/15/2019, 08/20/2018, | | | 11/23/2017. MRI wrist 01/28/2019, 12/05/2017. TECHNIQUE: | | | Multiplanar multisequence MRI of the wrist was performed without | | | contrast. FINDINGS: The triangular fibrocartilage complex is | | | demonstrates no focal defects. No fluid collection at the distal | | | radioulnar joint. 3 anchor devices are redemonstrated at the | | | distal ulna.. The scapholunate and lunatotriqutral ligaments | | | appear intact. The extensor tendons of the wrist demonstrate no | | | fluid collections surrounding the tendons. The carpal tunnel, | | | including the flexor tendons demonstrate no focal fluid collections | | | surrounding the tendons or collected within the soft tissues. No | | | distinct thickening of the median nerve. The ulnar nerve within | | | Guyon-s canal is normal. Evaluation of the osseous structures | | | demonstrates approximate 2.5 mm subcortical cyst at the radial aspect | | | of hamate.. Evaluation of the soft tissues demonstrates 4 x 8 mm | | | fluid collection near the volar aspect of the radiocarpal joint radial | | | side unassociated with tendon. | | + + + + + | Procedure Note | + + | Mitchel, Rad Results In - 12/09/2019 8:14 PM PDT EXAMINATION:MRI WRIST RIGHT WO | | CONTRASTHISTORY:Persistent pain postop-de Quervain's release, [facility] | | tenosynovectomyCOMPARISON STUDY:Wrist x-ray 11/05/2019, 05/10/2019, 01/15/2019, | | 08/20/2018, 11/23/2017.MRI wrist 01/28/2019, 12/05/2017.TECHNIQUE:Multiplanar | | multisequence MRI of the wrist was performed without contrast.FINDINGS:The triangular | | fibrocartilage complex is demonstrates no focal defects. No fluid collection at the | | distal radioulnar joint.3 anchor devices are redemonstrated at the distal ulna..The | | scapholunate and lunatotriqutral ligaments appear intact.The extensor tendons of the | | wrist demonstrate no fluid collections surrounding the tendons.The carpal tunnel, | | including the flexor tendons demonstrate no focal fluid collections surrounding the | | tendons or collected within the soft tissues. No distinct thickening of the median | | nerve.The ulnar nerve within Guyon-s canal is normal.Evaluation of the osseous | | structures demonstrates approximate 2.5 mm subcortical cyst at the radial aspect of | | hamate..Evaluation of the soft tissues demonstrates 4 x 8 mm fluid collection near the | | volar aspect of the radiocarpal joint radial side unassociated with tendon.IMPRESSION: | | 1. Postsurgical changes noted distal ulna compatible with extensor carpi ulnaris | | tenosynovectomy.2. No acute finding.3. Minimal degenerative change noted hamate.4. No | | obvious tenosynovitis.Dictated by: Chris Bedolla | |The scapholunate and lunatotriqutral ligaments appear intact. | | | |The extensor tendons of the wrist demonstrate no fluid collections surrounding the tendons. | | | |The carpal tunnel, including the flexor tendons demonstrate no focal fluid collections surr ounding the tendons or collected within the soft tissues. No distinct thickening of the med agustin nerve. | | | |The ulnar nerve within Guyon-s canal is normal. | | | |Evaluation of the osseous structures demonstrates approximate 2.5 mm subcortical cyst at th e radial aspect of hamate.. | | | |Evaluation of the soft tissues demonstrates 4 x 8 mm fluid collection near the volar aspect of the radiocarpal joint radial side unassociated with tendon. | | | | | |IMPRESSION: | |1. Postsurgical changes noted distal ulna compatible with extensor carpi ulnaris tenosynove ctomy. | |2. No acute finding. | |3. Minimal degenerative change noted hamate. | |4. No obvious tenosynovitis. | | | |Dictated by: Chris Bedolla [...] + + | De Karolyn's tenosynovitis, right Radial styloid tenosynovitis | + + | Place of occurrence, industrial places and premises | + + documented in this encounter"
--- OUTSIDE RECORDS SUMMARY | ~2020-02-18 | XMS | Encounter Summary ---
Demographics + + + | Address | [address] | | | [place] [address] | + + + | Home Phone [...] | [facility] | | | and [...] Providers + +------+ + | Care Medical Assistant Name | Role | Phone | [...] | Diagnoses | Tank Ernst Cc Wgr Gr | | | Services | Surgery | Sprain of | Erika A, DO | Orthopedic | | | Required | | right hand, | [address] | [address] | | | | | subsequent | [place], | [place] | | | | | [place] | [place] [address] | [place], [place] | | | | | Procedures | Phone: | [phone] | | | | | [place] | [phone] | Phone: | | | | | | Fax: | [phone] | | | | | | [phone] | Fax: | | | | | | | [phone] | +--------+ + + + + + [...] | [facility] [address] | [place] [address] | encounter (Primary | | | | [address] [place], | [phone] | Dx); Hypothyroidism, | | | | [place] [address] | | unspecified type; | | | | [phone] | | Iron deficiency | +--------+---------+ + [...] lateral side from sm finger proximally. 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 S he has appointment already for Dr Leann hernandez for her FU. Recent lab for Thyroid [...] No redness. Prior hubbard rgical area healed. 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 Iron deficiency Plan: Referral to Dr Noriega hand surgeon for FU on right hand sprain. [...] [address] | | | | | | [phone] | | | | | | | | | | | | Julia Fisher, | | | | | | PT | | +--------+ + + + + | 02/18/ | Appointment | Rehabilitation | Erika Ernst, | | | 2019 | | | DO [address] [place] | | | | | | [place] [address] | | | | | | [phone] | | | | | | | | | | | | Genesis Ayon, OT | | +--------+ + + + + | 02/25/ | Office | Primary Care | Erika Ernst, | | | 2019 | Visit | | DO [address] [place] | | | | | | [place] [address] | | | | | | [phone] | | | | | | | [...] | | | | | [place] [address] | | | | | | [phone] | | | | | | | | +--------+ + + + + | 02/27/ | Appointment | Radiology | Dhara, | | | 2019 | | | DWAINE Ross [address] [place], | | | | | | [place] [address] | | | | | | [phone] | | | | | | | | +--------+ + + + + | 03/04/ | Appointment | Rehabilitation | Genesis Ayon OT | | | 2019 | | | | | +--------+ + + + + | 03/09/ | Office | Orthopedic Surgery | Jeffrey Gandhi, | | 2019 | Visit | | [place] [address] [facility] | | | | | | [place] [address] | | | | | | [phone] | | | | | | | [...] [place] | | | | | | [address] | | | | | | [phone] | | | | | | | [...] | | | | | [place] [address] | | | | | | [phone] | | | | | | | | | | | | Azul Yeboah, | | | | | | MD [address] | | | | | | [place] | | | | | | [place] [address] | | | | | | [phone] | | | | | | | [...] | | | | | | [place] [address] | | | | | | [phone] | | | | | | | [...] + + + | [place] | [address] [place] [address] Street | [place], [place] | [phone] | | [facility] | | [address] | | | [facility] | [...]
--- OUTSIDE RECORDS SUMMARY | ~2020-02-18 | XMS | Encounter Summary ---
Demographics + + + | Address | [address] | | | [place] [address] | + + + | Home Phone [...] Providers + +------+ + | Care Plant And Maintenance Technician Name | Role | Phone [...] | Diagnoses | Tank Ernst Cc [facility] | | | Services | Surgery | Sprain of | Erika A, DO | Orthopedic | | | Required | | calcaneofibu | [address] | [address] | | | | | lar ligament | [place], | [place] | | | | | [place] left | [place] [address] | [place], [place] | | | | | ankle, | Phone: | [phone] | | | | | initial | [phone] | Phone: | | | | | encounter | Fax: | [phone] | | | | | Procedures | [phone] | Fax: | | | | | [place] | | [phone] | +--------+ + + + + + [...] | | | of left | [place] [address] | [place] [address] | | | | | ankle, | Phone: | Phone: | | | | | initial | [phone] | [phone] | | | | | encounter | Fax: | Fax: | | | | | Procedures | [phone] | [phone] | | | | | PT EVAL [...] + | 06/06/ | Office | [place] [facility] | Erika Ernst, | Sprain of | | 2018 | Visit | [facility] | DO [address] | calcaneofibular | | | | [facility] [address] | [place] [address] | ligament of left | | | | [address] [place], | [phone] | ankle, initial | | | | [place] [address] | | encounter (Primary | | | | [phone] | | Dx) | +--------+---------+ + + [...] daily. 30 tablet 0 Cholecalciferol (VITAMIN D3) 82090 units TABS Take 1 tablet by mouth [...] | | | | | [place] [address] | | | | | | [phone] | | | | | | | | | | | | Julia Fisher, | | | | | | PT | | +--------+ + + + + | 02/18/ | Appointment | Rehabilitation | Erika Ernst, | | | 2019 | | | DO [address] [place] | | | | | | [place] [address] | | | | | | [phone] | | | | | | | | | | | | Genesis Ayon, OT | | +--------+ + + + + | 02/25/ | Office | Primary Care | Erika Ernst, | | | 2019 | Visit | | DO [address] [place] | | | | | | [place] [address] | | | | | | [phone] | | | | | | | [...] | | | | | [place] [address] | | | | | | [phone] | | | | | | | | +--------+ + + + + | 02/27/ | Appointment | Radiology | Dhara, | | | 2019 | | | DWAINE Ross [address] | [address] [place], | | | | | | [place] [address] | | | | | | [phone] | | | | | | | | +--------+ + + + + | 03/04/ | Appointment | Rehabilitation | Genesis Ayon OT | | | 2019 | | | | | +--------+ + + + + | 03/09/ | Office | Orthopedic Surgery | Jeffrey Gandhi, | | | 2019 | Visit | | [address] [facility] | | | | | | [place] [address] | | | | | | [phone] | | | | | | | [...] [place] | | | | | | [address] | | | | | | [phone] | | | | | | | [...] | | | | | [place] [address] | | | | | | [phone] | | | | | | | | | | | | Azul Yeboah, | | | | | | MD [address] | | | | | | [place] | | | | | | [place] [address] | | | | | | [phone] | | | | | | | [...] | | | | | | [place] [address] | | | | | | [phone] | | | | | | | [...] of | Ordered: 06/06/2018 | | [facility] | Referral | [...]
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
--- OUTSIDE RECORDS SUMMARY | ~2020-02-18 | XMS | Encounter Summary ---
Demographics + + + | Address | [address] | | | [place] [address] | + + + | Home Phone [...] Providers + +------+ + | Care Jewelry Manager Name | Role | Phone | + +------+ + | Erika Ernst DO | PCP | | + +------+ + Reason for Visit +--------+ + | Reason | Comments | +--------+ + | Other | appt question | +--------+ + Encounter Details +--------+ + + + + | Date | Type | Department | Care Team | Description | +--------+ + + + + | 07/25/ | Telephone | [place] [facility] | Inocencio Noriega | Other (appt | | 2019 | | [facility] | MD Malcolm [address] | question) | | | | [address] [place] | [address] | | | | | [place], [place] | [place] [address] | | | | | [address] | [phone] | | | | | [phone] | | | +--------+ + + + [...] | | | | | [place] [address] | | | | | | [phone] | | | | | | | | | | | | Julia Fisher, | | | | | | PT | | +--------+ + + + + | 02/18/ | Appointment | Rehabilitation | Erika Ernst, | | | 2019 | | | DO [address] [place] | | | | | | [place] [address] | | | | | | [phone] | | | | | | | | | | | | Genesis Ayon OT | | +--------+ + + + + | 02/25/ | Office | Primary Care | Erika Ernst, | | | 2019 | Visit | | DO [address] [place] | | | | | | [place] [address] | | | | | | [phone] | | | | | | | [...] | | | | | [place] [address] | | | | | | [phone] | | | | | | | | +--------+ + + + + | 02/27/ | Appointment | Radiology | Dhara, | | | 2019 | | | DWAINE Ross [address] | | | | | | [address] [facility], | | | | | | [place] [address] | | | | | | [phone] | | | | | | | | +--------+ + + + + | 03/04/ | Appointment | Rehabilitation | Genesis Ayon OT | | | 2019 | | | | | +--------+ + + + + | 03/09/ | Office | Orthopedic Surgery | Jeffrey Gandhi, | | | 2019 | Visit | | [address] | | | | | | [place] [address] | | | | | | [phone] | | | | | | | [...] [place] | | | | | | [address] | | | | | | [phone] | | | | | | | [...] | | | | | [place] [address] | | | | | | [phone] | | | | | | | | | | | | Azul Yeboah, | | | | | | MD [address] | | | | | | [place] | | | | | | [place] [address] | | | | | | [phone] | | | | | | | [...] | | | | | | [place] [address] | | | | | | [phone] | | | | | | | | +--------+ + + + + documented as of this encounter Visit Diagnoses Not on filedocumented in this encounter"
--- OUTSIDE RECORDS SUMMARY | ~2020-02-18 | XMS | Encounter Summary ---
Demographics + + + | Address | [address] | | | [place] [address] | + + + | Home Phone [...] Providers + +------+ + | Care Production Finisher Name | Role | Phone | + +------+ + | Erika Ernst DO | PCP | | + +------+ + Reason for Visit +--------+ + | Reason | Comments | +--------+ + | Rash | X 1 week | +--------+ + Encounter Details +--------+---------+ + + + | Date | Type | Department | Care Team | Description | +--------+---------+ + + + | 01/09/ | Office | [facility] [facility] | PedrokrystynaMaryse | Jaelyn (Primary Dx) | | 2020 | Visit | [facility] | DWAINE Huynh | | | | | [facility] [address] | [address] [place] | | | | | [address] [place], | [place] [address] | | | | | [place] [address] | [phone] | | | | | [phone] | | | +--------+---------+ + + + [...] + + + | Blood Pressure | 132/78 | 01/10/2020 5:03 PM | | | | | PDT | | + + + + + | Pulse | 93 | 01/10/2020 5:03 PM | | | | | PDT | | + + + + + | Temperature | 37.4 C (99.4 F) | 01/10/2020 5:03 PM | | | | | PDT | | + + + + + | Respiratory Rate | 18 | 01/10/2020 5:03 PM | | | | | PDT | | + + + + + | Oxygen Saturation | 98% | 01/10/2020 5:03 PM | | | | | PDT | | + + + + + | Inhaled Oxygen | - | - | | | Concentration | | | | + + + + + | Weight | 160.6 kg (354 lb) | 01/10/2020 5:03 PM | | | | | PDT | | + + + + + | Height | - | - | | + + + + + | Body Mass Index | 50.79 | 12/26/2019 8:52 AM | | | | | PDT | | + + + + + documented in this encounter Patient Instructions Patient Instructions Maryse Langford FNP - 01/10/2020 4:55 PM PDTThank you fo r your time today. Today I saw you for a rash that resemble rosacea. Stop the steroid ointment this can contribute to redness of the skin. Start the topical clindamycin-benzoyl peroxide gel, apply twice daily until the redness resolves. Applying cool compresses for 15 - 20 minutes up to 4 times daily may be comforting. If you are not improving in the next week please follow-up with your primary care. Rosacea Rosacea is a long-lasting (chronic) skin condition affecting the face. In the early stages it causes easy flushing or blushing. Redness may become long-term (permanent) as the small b lood vessels of the face widen (dilate). There may be small, red, pus-filled bumps (pustules ). It looks like a bad case of acne, and has been called adult acne. But it is not caused by the same things that cause acne. Rosacea is a chronic illness. You will have flare-ups that come and go. This may happen danny ry few weeks or every few months. Experts don't know what causes rosacea. If not treated, it tends to get worse over time. Some men with a more severe form of rosacea develop a condition called rhinophyma. The oil glands on the skin of the nose become blocked and the nose gets bigger. The cheeks also beco me puffy. Alcohol may increase the flushing. But this condition is not caused by alcohol use . Rosacea can be treated with topical gels and creams. Oral antibiotics are used for more sev ere cases. You should see improvement in the first4 weeks. Dilated blood vessels can be tr eated with a small electric needle or laser surgery. Rhinophyma can be treated with surgery. Or it may be treated by surgically scraping the skin (dermabrasion). Home care Avoid things that make your face red or flushed. These include hot drinks, spicy foods, caffeine, and alcohol. Exercise indoors or in a cool area to avoid getting overheated. Avoid excess sun exposure. Use a sunscreen with at least SPF 15 or higher. Avoid extreme hot or extreme cold weather. Don't scrub your face. That will irritate the skin and increase redness. Avoid harsh soaps or moisturizers with irritating ingredients. You may need to use hypoa llergenic cosmetics. Avoid pkep-zsa-ewgeaao treatments unless instructed by your healthcare provider. Some of these treatments may make rosacea worse. Try to figure out what triggers your flares (such as stress, sun exposure, or certain fo ods). Follow-up care Follow up with your healthcare provider, or as advised. Contact your provider if your condi tion is not responding to the medicines you were given. Getting treatment early can stop it from getting worse. When to seek medical advice Call your healthcare provider right away if you have redness, burning, or a gritty feeling in your eyes. Date Last Reviewed: 05/02/201619993433-7871 [employer]. [address] [place] [address], [place] [address]. All righ ts reserved. This information is not intended as a substitute for professional medical care. Always follow your healthcare professional's instructions. documented in this encounter Progress Notes Maryse Langford FNP - 01/10/2020 4:55 PM PDT Patient ID: Andrea Suh is a 29 y.o. female. Chief Complaint Patient presents with Rash X 1 week Assessment: 1. Rosacea - clindamycin-benzoyl peroxide (BENZACLIN) gel; Apply to affected areas twice daily after t he skin is washed, rinsed with water, and patted dry Dispense: 50 g; Refill: 0 Plan: New onset. Etiology unclear, but I have concerns that overuse of high potency steroid on h er face may be the contributing factor to her symptoms and the mechanism of action is that s teroids dilate blood vessels. Given that this is not itchy and it continues to worsen despi te the use of a high potency steroid I do not suspect that this is a dermatitis. Patient pr esents afebrile, non-toxic, in no acute respiratory distress and well-hydrated. - Recommended to stop the use of high potency steroids on her face and she should not ever use high potency steroids on the face or the genital region. - Clindamycin/benzyl peroxide gel prescribed to treat for rosacea. - Applying cool compresses for comfort. - Worrisome s/sx and indications for RTC reviewed - Follow-up with PCP if no improvement or worsening symptoms in the next week. Subjective: History of Present Illness: Andrea presents to [facility] for the following concern(s): Rash Onset: 1 week ago. Location: face (cheeks/forehead) and neck bilaterally. Duration: const ant and spreading. Pertinent negatives: fatigue, fever, chills, anorexia, headaches, SOB, c hest pain, abdominal pain, nausea, vomiting, diarrhea, itching tenderness, warmth, swelling, streaking or drainage. Associated symptoms: redness. Treatments: Hydrocortisone and Fluoc inonide cream twice daily without any improvement. Patient is able to keep liquids and solids down without difficulty. Patient denies any recent exposure to the sun. Patient does admit that she is under an exc essive amount of stress. Denies exposure to new soaps, detergents, pets, insects bits, plants, foods, medications, t ravel, camping, shellfish or chemicals. Denies fever > 100.4, cough, SOB or any recent travel out of the country to affected [facility] regions, exposure to persons in long-term care or institutional facility/cruise ships o r contact with known sick exposures diagnosed with COVID-19 via lab w/in 14 days of symptom onset. History: Active medication list, allergies, medical and social history reviewed with patient. Allergies: She is allergic to latex; lexapro [escitalopram]; ciprofloxacin; deblitane [nore thindrone]; hydrocodone; milk; nickel; uncoded nonscreenable allergen; and adhesive & tape. Review of Systems All other systems reviewed and are negative. Objective: Vitals 12/02/2019 12/12/2019 12/24/2019 12/26/2019 01/02/2020 01/06/2020 01/10/2020 SYSTOLIC 139 124 134 143 110 137 132 DIASTOLIC 94 62 82 98 60 83 78 Pulse 102 77 105 81 80 85 93 Temp 98.2 97.4 99.1 97.2 97.7 99.1 99.4 Resp 19 18 18 18 16 16 18 Weight - 360 lbs 357 lbs 355 lbs 354 lbs - 354 lbs Height - - 5' 10" 5' 10" - - - SPO2 99 97 98 99 97 96 98 BMI - - 51.3 kg/m2 51 kg/m2 - - - Physical Exam Vitals signs reviewed. Constitutional: General: She is not in acute distress. Appearance: She is well-developed. She is not ill-appearing, toxic-appearing or diaphore tic. Skin: General: Skin is warm and dry. Capillary Refill: Capillary refill takes less than 2 seconds. Coloration: Skin is not pale. Comments: - Erythematous telangiectasias patches observed on bilateral cheek region exte nding down below the jawline and midline forehead Neurological: Mental Status: She is alert and [...] | | | | | [place] [address] | | | | | | [phone] | | | | | | | | | | | | Julia Fisher, | | | | | | PT | | +--------+ + + + + | 02/18/ | Appointment | Rehabilitation | Erika Ernst, | 2019 | | | DO [address] [place] | | | | | | [place] [address] | | | | | | [phone] | | | | | | | | | | | | Genesis Ayon, OT | | +--------+ + + + + | 02/25/ | Office | Primary Care | Erika Ernst, | | | 2019 | Visit | | DO [address] [place] [address] | | | | | | [place] [address] | | | | | | [phone] | | | | | | | [...] | | | | | [place] [address] | | | | | | [phone] | | | | | | | | +--------+ + + + + | 02/27/ | Appointment | Radiology | Dhara, | | | 2019 | | | DWAINE Ross [address] | | | | | [address] [place], | | | | | | [place] [address] | | | | | | [phone] | | | | | | | [...] [place] | | | | | | [place] [address] | | | | | | [phone] | | | | | | | [...] [place] | | | | | | [address] | | | | | | [phone] | | | | | | | [...] | | | | | [place] [address] | | | | | | [phone] | | | | | | | | | | | | Azul Yeboah, | | | | | | MD [address] | | | | | | [place] | | | | | | [place] [address] | | | | | | [phone] | | | | | | | [...] | | | | | | [place] [address] | | | | | | [phone] | | | | | | | | +--------+ + + + + documented as of this encounter Visit Diagnoses + + | Diagnosis | + + | Rosacea - Primary | + + documented in this encounter
--- OUTSIDE RECORDS SUMMARY | ~2020-02-18 | XMS | Encounter Summary ---
Demographics + + + | Address | [address] | | | [place] [address] | + + + | Home Phone [...] Providers + +------+ + | Care Career Technical Education Teacher Name | Role | Phone [...] | [address] [place], [place] | [place] [address] | | | | | [address] | [phone] | | | | | [phone] | | | +--------+ + + + [...] | | | | | [place] [address] | | | | | | [phone] | | | | | | | | | | | | Julia Fisher, | | | | | | PT | | +--------+ + + + + | 02/18/ | Appointment | Rehabilitation | Erika Ernst, | | | 2019 | | | DO [address] [place] | | | | | | [place] [address] | | | | | | [phone] | | | | | | | | | | | | Genesis Ayon OT | | +--------+ + + + + | 02/25/ | Office | Primary Care | Erika Ernst, | | | 2019 | Visit | | DO [address] [place] | | | | | | [place] [address] | | | | | | [phone] | | | | | | | [...] | | | | | [place] [address] | | | | | | [phone] | | | | | | | | +--------+ + + + + | 02/27/ | Appointment | Radiology | Dhara, | | | 2019 | | | DWAINE Ross [address] | | | | | | 4TH [facility], | | | | | | [place] [address] | | | | | | [phone] | | | | | | | [...] [place] | | | | | | [place] [address] | | | | | | [phone] | | | | | | | [...] [place] | | | | | | [address] | | | | | | [phone] | | | | | | | [...] | | | | | [place] [address] | | | | | | [phone] | | | | | | | | | | | | Azul Yeboah, | | | | | | MD [address] | | | | | | [place] | | | | | | [place] [address] | | | | | | [phone] | | | | | | | [...] | | | | | | [place] [address] | | | | | | [phone] | | | | | | | | +--------+ + + + + documented as of this encounter Visit Diagnoses Not on filedocumented in this encounter"
--- OUTSIDE RECORDS SUMMARY | ~2020-02-18 | XMS | Encounter Summary ---
Demographics + + + | Address | [address] | | | [place] [address] | + + + | Home Phone [...] Providers + +------+ + | Care Louver Mortiser Operator Name | Role | Phone | [...] 2018 | | [facility] | C, [facility] [address] | postoperative wound | | | | CENTER [address] | [address] [place] | check (Primary Dx) | | | | [place] | [address] | | | | | [address] | | | | | | [phone] | | | +--------+ + + + [...] | | | | | [place] [address] | | | | | | [phone] | | | | | | | | | | | | Julia Fisher, | | | | | | PT | | +--------+ + + + + | 02/18/ | Appointment | Rehabilitation | Erika Ernst, | | | 2019 | | | DO [address] [place] | | | | | | [place] [address] | | | | | | [phone] | | | | | | | | | | | | Genesis Ayon, OT | | +--------+ + + + + | 02/25/ | Office | Primary Care | Erika Ernst, | | | 2019 | Visit | | DO [address] [place] | | | | | | [place] [address] | | | | | | [phone] | | | | | | | [...] | | | | | [place] [address] | | | | | | [phone] | | | | | | | | +--------+ + + + + | 02/27/ | Appointment | Radiology | Dhara, | | | 2019 | | | DWAINE Ross [address] | | | | | | [address]TH [facility] [place], | | | | | | [place] [address] | | | | | | [phone] | | | | | | | [...] [place] | | | | | | [place] [address] | | | | | | [phone] | | | | | | | [...] [place] | | | | | | [address] | | | | | | [phone] | | | | | | | [...] | | | | | [place] [address] | | | | | | [phone] | | | | | | | | | | | | Azul Yeboah, | | | | | | [address] | | | | | | [place] | | | | | | [place] [address] | | | | | | [phone] | | | | | | | [...] | | | | | | [place] [address] | | | | | | [phone] | | | | | | | [...] C?MRN: | | | | | | [id number] | | | [id number] | | | ecurit | | | [...] | | | St. | | | [place] | | | y H. | | [...] | | | St. | | | [place] | | | y | | | [...]
--- OUTSIDE RECORDS SUMMARY | ~2020-02-18 | XMS | Encounter Summary ---
Demographics + + + | Address | [address] | | | [place] [address] | + + + | Home Phone [...] Team Providers + +------+ + | Care Smoke Jumper Supervisor Name | Role | Phone | [...] | [facility] | [place] [address] | | | | [address] [place], | [phone] | | | | | [place] [address] | | | | | | [phone] | | | +--------+ + + + [...] | | | | | [place] [address] | | | | | | [phone] | | | | | | | | | | | | Julia Fisher, | | | | | | PT | | +--------+ + + + + | 02/18/ | Appointment | Rehabilitation | Erika Ernst, | | | 2019 | | | DO [address] [place] | | | | | | [place] [address] | | | | | | [phone] | | | | | | | | | | | | Genesis Ayon OT | | +--------+ + + + + | 02/25/ | Office | Primary Care | Erika Ernst, | | | 2019 | Visit | | DO [address] [place] | | | | | | [place] [address] | | | | | | [phone] | | | | | | | [...] | | | | | [place] [address] | | | | | | [phone] | | | | | | | | +--------+ + + + + | 02/27/ | Appointment | Radiology | Dhara, | | | 2019 | | | DWAINE Ross [address] | | | | | | [address]TH [facility], | | | | | | [place] [address] | | | | | | [phone] | | | | | | | [...] [place] | | | | | | [place] [address] | | | | | | [phone] | | | | | | | [...] Obstetrics and | Emily Aveyr | | | 2019 | Visit | Gynecology | DO Radha [address] | | | | | | [address] | | | | | | [place] | | | | | | [address] | | | | | | [phone] | | | | | | | [...] | | | | | [place] [address] | | | | | | [phone] | | | | | | | | | | | | Azul Yeboah, | | | | | | MD [address] | | | | | | [place] | | | | | | [place] [address] | | | | | | [phone] | | | | | | | [...] | | | | | | [place] [address] | | | | | | [phone] | | | | | | | | +--------+ + + + + documented as of this encounter Visit Diagnoses Not on filedocumented in this encounter"
--- OUTSIDE RECORDS SUMMARY | ~2020-02-18 | XMS | Encounter Summary ---
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 No visible white patches but patient has [...] | | | | | [place] [address] | | | | | | [phone] | | | | | | | | | | | | Julia Fisher, | | | | | | PT | | +--------+ + + + + | 02/18/ | Appointment | Rehabilitation | Erika Ernst, | | | 2019 | | | DO [address] [place] | | | | | | [place] [address] | | | | | | [phone] | | | | | | | | | | | | Genesis Ayon OT | | +--------+ + + + + | 02/25/ | Office | Primary Care | Erika Ernst, | | | 2019 | Visit | | DO [facility] [address] | | | | | | [place] [address] | | | | | | [phone] | | | | | | | [...] | | | | | [place] [address] | | | | | | [phone] | | | | | | | | +--------+ + + + + | 02/27/ | Appointment | Radiology | Dhara, | | | 2019 | | | DWAINE Ross [address] | | | | | | [address] [place], | | | | | | [place] [address] | | | | | | [phone] | | | | | | | [...] ST | | | | | | [place] [address] | | | | | | [phone] | | | | | | | [...] [place] | | | | | | [address] | | | | | | [phone] | | | | | | | [...] | | | | | [place] [address] | | | | | | [phone] | | | | | | | | | | | | Azul Yeboah, | | | | | | [address] | | | | | | [place] | | | | | | [place] [address] | | | | | | [phone] | | | | | | | [...] | | | | | | [place] [address] | | | | | | [phone] | | | | | | | [...]
--- OUTSIDE RECORDS SUMMARY | ~2020-02-18 | XMS | Encounter Summary ---
Demographics + + + | Address | [address] | | | [place] [address] | + + + | Home Phone [...] Providers + +------+ + | Care Electric Fork Operator Name | Role | Phone | [...] | 09/26/ | Telephone | [facility] | OksanaJeffrey Donte, | Other | | 2018 | | [place] [address] | [address] | | | | | [address] [place], [place] | [place] [address] | | | | | [address] | [phone] | | | | | [phone] | | | +--------+ + + + [...] | | | | | [place] [address] | | | | | | [phone] | | | | | | | | | | | | Julia Fisher, | | | | | | PT | | +--------+ + + + + | 02/18/ | Appointment | Rehabilitation | Erika Ernst, | | | 2019 | | | DO [address] [place] | | | | | | [place] [address] | | | | | | [phone] | | | | | | | | | | | | Genesis Ayon OT | | +--------+ + + + + | 02/25/ | Office | Primary Care | Erika Ernst, | | | 2019 | Visit | | DO [address] [place] | | | | | | [place] [address] | | | | | | [phone] | | | | | | | [...] [place] | | | | | | [place] [address] | | | | | | [phone] | | | | | | | | +--------+ + + + + | 02/27/ | Appointment | Radiology | Dhara, | | | 2019 | | | DWAINE Rsos [address] | | | | | | [address] [facility] [place], | | | | | | [place] [address] | | | | | | [phone] | | | | | | | [...] [place] | | | | | | [place] [address] | | | | | | [phone] | | | | | | | [...] [place] | | | | | | [address] | | | | | | [phone] | | | | | | | [...] | | | | | [place] [address] | | | | | | [phone] | | | | | | | | | | | | Azul Yeboah, | | | | | | MD [address] | | | | | | [place] | | | | | | [place] [address] | | | | | | [phone] | | | | | | | [...] | | [address] [place], | | | | | | [place] [address] | | | | | | [phone] | | | | | | | | +--------+ + + + + documented as of this encounter Visit Diagnoses Not on filedocumented in this encounter"
--- OUTSIDE RECORDS SUMMARY | ~2020-02-18 | XMS | Encounter Summary ---
Demographics + + + | Address | [address] | | | [place] [address] | + + + | Home Phone [...] Providers + +------+ + | Care Food Preparer Name | Role | Phone | + [...] Telephone | [place] [facility] | Travis Malone, ELECTRIC SERVICEMAN | Other (wrist pain ) | | 2019 | | [facility] | [address] [place] | | | | | [address] [place] | [place], [place] | | | | | [place] | [address] | | | | | [address] | [phone] | | | | | [phone] | | | +--------+ + + + [...] | | | | | [place] [address] | | | | | | [phone] | | | | | | | | | | | | Julia Fisher, | | | | | | PT | | +--------+ + + + + | 02/18/ | Appointment | Rehabilitation | Erika Ernst, | | | 2019 | | | DO [address] [place] | | | | | | [place] [address] | | | | | | [phone] | | | | | | | | | | | | Genesis Ayon OT | | +--------+ + + + + | 02/25/ | Office | Primary Care | Erika Ernst, | | | 2019 | Visit | | DO [address] [place] | | | | | | [place] [address] | | | | | | [phone] | | | | | | | [...] | | | | | [place] [address] | | | | | | [phone] | | | | | | | | +--------+ + + + + | 02/27/ | Appointment | Radiology | Dhara, | | | 2019 | | | [address]WAINE [address] | | | | | | [address]TH [facility], | | | | | | [place] [address] | | | | | | [phone] | | | | | | | [...] | | | | | | [place] [address] | | | | | | [phone] | | | | | | | [...] [place] | | | | | | [address] | | | | | | [phone] | | | | | | | [...] | | | | | [place] [address] | | | | | | [phone] | | | | | | | | | | | | Azul Yeboah, | | | | | | MD [address] | | | | | | [place] | | | | | | [place] [address] | | | | | | [phone] | | | | | | | [...] | | | | | | [place] [address] | | | | | | [phone] | | | | | | | | +--------+ + + + + documented as of this encounter Visit Diagnoses Not on filedocumented in this encounter"
--- OUTSIDE RECORDS SUMMARY | ~2020-02-18 | XMS | Encounter Summary ---
Demographics + + + | Address | [address] | | | [place] [address] | + + + | Home Phone [...] Providers + +------+ + | Care Armature Bander Name | Role | Phone | [...] [address] | [facility] [address] | | | | | [address] [place], | [phone] | | | | | [place] [address] | | | | | | [phone] | | | +--------+ + + + [...] | | | | | [place] [address] | | | | | | [phone] | | | | | | | | | | | | Julia Fisher, | | | | | | PT | | +--------+ + + + + | 02/18/ | Appointment | Rehabilitation | Erika Ernst, | | | 2019 | | | DO [address] [place] | | | | | | [place] [address] | | | | | | [phone] | | | | | | | | | | | | Genesis Ayon OT | | +--------+ + + + + | 02/25/ | Office | Primary Care | Erika Ernst, | | | 2019 | Visit | | DO [address] [place] | | | | | | [place] [address] | | | | | | [phone] | | | | | | | | +--------+ + + + + | 02/25/ | Appointment | Rehabilitation | Genesis yAon OT | | | 2019 | | | | | +--------+ + + + + | 02/26/ | Virtual | Rehabilitation | Usha Rodriguez | | 2019 | Office | | MD Precious [address] | | | | Visit | | [address] [place] | | | | | | [place] [address] | | | | | | [phone] | | | | | | | | +--------+ + + + + | 02/27/ | Appointment | Radiology | Dhara, | | | 2019 | | | DWAINE Ross [address] | | | | | | [address] [facility] | | | | | | [place] [address] | | | | | | [phone] | | | | | | | [...] | | | | [place], [place] [address] | | | | | | [phone] | | | | | | | [...] [place] | | | | | | [address] | | | | | | [phone] | | | | | | | [...] | | | | | [place] [address] | | | | | | [phone] | | | | | | | | | | | | Azul Yeboah, | | | | | | MD [address] | | | | | | [place] | | | | | | [place] [address] | | | | | | [phone] | | | | | | | [...] | | | | | | [place] [address] | | | | | | [phone] | | | | | | | [...] + | [place] | [address] | [place] | [phone] | | [facility] | | [address] | | | [facility] | | | | + + + + + documented in this encounter Visit Diagnoses + + | Diagnosis | + + | Lymphocytosis - Primary Lymphocytosis (symptomatic) | + + documented in this encounter"
--- OUTSIDE RECORDS SUMMARY | ~2020-02-18 | XMS | Encounter Summary ---
Demographics + + + | Address | [address] | | | [place] [address] | + + + | Home Phone [...] Team Providers + +------+ + | Care Institute Director Name | Role | Phone | [...] [facility] | HOOK LOADER [address] [facility] | forearm, right, | | | | W[facility] [address] | [facility] [place] [address] | initial encounter | | | | [facility], | [phone] | (Primary Dx) | | | | [place] [address] | | | | | | [phone] | | | +--------+---------+ + + + [...] as long as directed by your [facility]. ? If you were given [...] reapply it to the wound as directed. [place] r the wound with a fresh nonstick [...] part near the wound Date Last Reviewed: 12/02/201619998400-1752 [employer]. [address] [place] [address]. All righ ts reserved. This information is [...] mouth. Once a week Cholecalciferol (VITAMIN D3) 43260 units TABS Take 1 tablet by mouth [...] your PCP. Electronically Signed by CAITIE WoodruffP3/14:37 [facility], Walk[facility]in [facility] documented in this en counter Plan of Treatment +--------+ + + + + | Date | Type | Specialty | Care Team | Description | +--------+ + + + + | 02/18/ | Appointment | Rehabilitation | Erika Ernst, | | | 2019 | | | DO [facility] | | | | | | [facility] [place] [address] | | | | | | [phone] | | | | | | | | | | | | Julia Fisher, | | | | | | PT | | +--------+ + + + + | 02/18/ | Appointment | Rehabilitation | Erika Ernst, | | | 2019 | | | DO [address] [place] | | | | | | [place] [address] | | | | | | [phone] | | | | | | | | | | | | Genesis Ayon, SUSAN | | +--------+ + + + + | 02/25/ | Office | Primary Care | Erika Ernst, | | | 2019 | Visit | | DO [address] [place] | | | | | | [place] [address] | | | | | | [phone] | | | | | | | [...] | | | | | [place] [address] | | | | | | [phone] | | | | | | | | +--------+ + + + + | 02/27/ | Appointment | Radiology | Dhara, | | | 2019 | | | [address] | | | | | | [address] [place], | | | | | | [place] [address] | | | | | | [phone] | | | | | | | [...] | | | | | [place] [address] | | | | | | [phone] | | | | | | | [...] [place] | | | | | | [address] | | | | | | [phone] | | | | | | | [...] | | | | | [place] [address] | | | | | | [phone] | | | | | | | | | | | | Azul Yeboah, | | | | | | MD [address] | | | | | | [place] | | | | | | [place] [address] | | | | | | [phone] | | | | | | | [...] | | | | | | [place] [address] | | | | | | [phone] | | | | | | | | +--------+ + + + + documented as of this encounter Visit Diagnoses + + | Diagnosis | + + | Excoriation of forearm, right, initial encounter - Primary | + + documented in this encounter
--- OUTSIDE RECORDS SUMMARY | ~2020-02-18 | XMS | Encounter Summary ---
Demographics + + + | Address | [address] | | | [place] [address] | + + + | Home Phone [...] Providers + +------+ + | Care Health And Fitness Instructor Name | Role | Phone | [...] [place] | | | | | | [address] | | | | | | [phone] | | | +--------+ + + + [...] | | | | | [place] [address] | | | | | | [phone] | | | | | | | | | | | | Julia Fisher, | | | | | | PT | | +--------+ + + + + | 02/18/ | Appointment | Rehabilitation | Erika Ernst, | | | 2019 | | | DO [address] [place] | | | | | | [place] [address] | | | | | | [phone] | | | | | | | | | | | | Genesis Ayon OT | | +--------+ + + + + | 02/25/ | Office | Primary Care | Erika Ernst, | | | 2019 | Visit | | DO [address] [place] | | | | | | [place] [address] | | | | | | [phone] | | | | | | | [...] | | | | | [place] [address] | | | | | | [phone] | | | | | | | | +--------+ + + + + | 02/27/ | Appointment | Radiology | Dhara, | | | 2019 | | | [address] | | | | | | [address] [place], | | | | | | [place] [address] | | | | | | [phone] | | | | | | | [...] [place] | | | | | | [place] [address] | | | | | | [phone] | | | | | | | [...] [place] | | | | | | [address] | | | | | | [phone] | | | | | | | [...] | | | | | [place] [address] | | | | | | [phone] | | | | | | | | | | | | Azul Yeboah, | | | | | | MD [address] | | | | | | [place] | | | | | | [place] [address] | | | | | | [phone] | | | | | | | [...] | | | | | | [place] [address] | | | | | | [phone] | | | | | | | | +--------+ + + + + documented as of this encounter Visit Diagnoses Not on filedocumented in this encounter"
--- OUTSIDE RECORDS SUMMARY | ~2020-02-18 | XMS | Encounter Summary ---
Demographics + + + | Address | [address] | | | [place] [address] | + + + | Home Phone [...] Team Providers + +------+ + | Care Planer Mill Grader Name | Role | Phone | + +------+ + | Erika Ernst DO | PCP | | + +------+ + Reason for Visit + + + | Reason | Comments | + + + | Medical Problem | | | (Minor) | | + + + Encounter Details +--------+ + + + + | Date | Type | Department | Care Team | Description | +--------+ + + + + | 02/17/ | Telephone | [place] [facility] | Dhara, | Medical Problem | | 2020 | | [facility] | Maddylauraromario, LEASING CONSULTANT [address] | (Minor) | | | | CLINIC [address] | [address] [place], | | | | | [place], | [place] [address] | | | | | [place] [address] | [phone] | | | | | [phone] | | | +--------+ + + + [...] | | | | | [place] [address] | | | | | | [phone] | | | | | | | | | | | | Julia Fisher, | | | | | | PT | | +--------+ + + + + | 02/18/ | Appointment | Rehabilitation | Erika Ernst, | | | 2019 | | | DO [address] [place] | | | | | | [place] [address] | | | | | | [phone] | | | | | | | | | | | | Genesis Ayon OT | | +--------+ + + + + | 02/25/ | Office | Primary Care | Erika Ernst, | | | 2019 | Visit | | DO [address] [place] | | | | | | [place] [address] | | | | | | [phone] | | | | | | | [...] [place] | | | | | | [place] [address] | | | | | | [phone] | | | | | | | | +--------+ + + + + | 02/27/ | Appointment | Radiology | Dhara, | | | 2019 | | | [address] | | | | | | 4TH [facility], | | | | | | [place] [address] | | | | | | [phone] | | | | | | | [...] [place] | | | | | | [place] [address] | | | | | | [phone] | | | | | | | [...] [place] | | | | | | [address] | | | | | | [phone] | | | | | | | [...] | | | | | [place] [address] | | | | | | [phone] | | | | | | | | | | | | Azul Yeboah, | | | | | | MD [address] | | | | | | [place] | | | | | | [place] [address] | | | | | | [phone] | | | | | | | [...] | | | | | | [place] [address] | | | | | | [phone] | | | | | | | | +--------+ + + + + documented as of this encounter Visit Diagnoses Not on filedocumented in this encounter"
--- OUTSIDE RECORDS SUMMARY | ~2020-02-18 | XMS | Encounter Summary ---
Demographics + + + | Address | [address] | | | [place] [address] | + + + | Home Phone [...] Providers + +------+ + | Care Top Precipitator Operator Helper Name | Role | Phone [...] | [address] | | | | | [address] | | | | | | [phone] | | | +--------+--------+ + + + [...] 2019 | | | DO [address] | | | | | | [place] [address] | | | | | | [phone] | | | | | | | | | | | | Julia Fisher, | | | | | | PT | | +--------+ + + + + | 02/18/ | Appointment | Rehabilitation | Erika Ernst, | | | 2019 | | | DO [address] [place] | | | | | | [place] [address] | | | | | | [phone] | | | | | | | | | | | | Genesis Ayon OT | | +--------+ + + + + | 02/25/ | Office | Primary Care | Erika Ernst, | | | 2019 | Visit | | DO [address] [place] | | | | | | [place] [address] | | | | | | [phone] | | | | | | | [...] | | | | | [place] [address] | | | | | | [phone] | | | | | | | | +--------+ + + + + | 02/27/ | Appointment | Radiology | Dhara, | | | 2019 | | | [address] | | | | | | [address]TH [facility], | | | | | | [place] [address] | | | | | | [phone] | | | | | | | | +--------+ + + + + | 03/04/ | Appointment | Rehabilitation | Genesis Ayon OT | | | 2019 | | | | | +--------+ + + + + | 03/09/ | Office | Orthopedic Surgery | Jeffrey Gandhi, | | | 2019 | Visit | | [address] | | | | | | [place] [address] | | | | | | [phone] | | | | | | | [...] [place] | | | | | | [address] | | | | | | [phone] | | | | | | | [...] | | | | | [place] [address] | | | | | | [phone] | | | | | | | | | | | | Azul Yeboah, | | | | | | MD [address] | | | | | | [place] | | | | | | [place] [address] | | | | | | [phone] | | | | | | | [...] | | | | | | [place] [address] | | | | | | [phone] | | | | | | | | +--------+ + + + + documented as of this encounter Visit Diagnoses Not on filedocumented in this encounter"
--- OUTSIDE RECORDS SUMMARY | ~2020-02-18 | XMS | Encounter Summary ---
Demographics + + + | Address | [address] | | | [place] [address] | + + + | Home Phone [...] Providers + +------+ + | Care Vice Chairman Name | Role | Phone | + [...] | | | [place], [place] | [place] [address] | | | | | [address] | [phone] | | | | | [phone] | | | +--------+ + + + [...] 2019 | | | DO [address] | | | | | | [place] [address] | | | | | | [phone] | | | | | | | | | | | | Julia Fisher, | | | | | | PT | | +--------+ + + + + | 02/18/ | Appointment | Rehabilitation | Erika Ernst, | | | 2019 | | | DO [address] [place] | | | | | | [place] [address] | | | | | | [phone] | | | | | | | | | | | | Genesis Ayon OT | | +--------+ + + + + | 02/25/ | Office | Primary Care | Erika Ernst, | | | 2019 | Visit | | DO [address] [place] | | | | | | [place] [address] | | | | | | [phone] | | | | | | | [...] | | | | | [place] [address] | | | | | | [phone] | | | | | | | | +--------+ + + + + | 02/27/ | Appointment | Radiology | Dhara, | | | 2019 | | | [address] | | | | | | 4TH [facility], | | | | | | [place] [address] | | | | | | [phone] | | | | | | | [...] [place] | | | | | | [place] [address] | | | | | | [phone] | | | | | | | [...] [place] | | | | | | [address] | | | | | | [phone] | | | | | | | [...] | | | | | [place] [address] | | | | | | [phone] | | | | | | | | | | | | Azul Yeboah, | | | | | | MD [address] | | | | | | [place] | | | | | | [place] [address] | | | | | | [phone] | | | | | | | [...] | | | | | | [place] [address] | | | | | | [phone] | | | | | | | | +--------+ + + + + documented as of this encounter Visit Diagnoses Not on filedocumented in this encounter"
--- OUTSIDE RECORDS SUMMARY | ~2020-02-18 | XMS | Encounter Summary ---
Demographics + + + | Address | [address] | | | [place] [address] | + + + | Home Phone [...] Providers + +------+ + | Care Apparel Manufacture Instructor Name | Role | Phone | [...] | [facility] [address] | [place] [address] | encounter (Primary | | | | [address] [place], | [phone] | Dx) | | | | [place] [address] | | | | | | [phone] | | | +--------+---------+ + + + [...] 2019 | | | DO [address] | | | | | | [place] [address] | | | | | | [phone] | | | | | | | | | | | | Julia Fisher, | | | | | | PT | | +--------+ + + + + | 02/18/ | Appointment | Rehabilitation | Erika Ernst, | | | 2019 | | | DO [address] [place] | | | | | | [place] [address] | | | | | | [phone] | | | | | | | | | | | | Genesis Ayon OT | | +--------+ + + + + | 02/25/ | Office | Primary Care | Erika Ernst, | | | 2019 | Visit | | DO [address] [place] | | | | | | [place] [address] | | | | | | [phone] | | | | | | | [...] | | | | | [place] [address] | | | | | | [phone] | | | | | | | | +--------+ + + + + | 02/27/ | Appointment | Radiology | Dhara, | | | 2019 | | | [address] | | | | | | [address] [place], | | | | | | [place] [address] | | | | | | [phone] | | | | | | | [...] | | | | | [place] [address] | | | | | | [phone] | | | | | | | [...] [place] | | | | | | [address] | | | | | | [phone] | | | | | | | [...] | | | | | [place] [address] | | | | | | [phone] | | | | | | | | | | | | Azul Yeboah, | | | | | | MD [address] | | | | | | [place] | | | | | | [place] [address] | | | | | | [phone] | | | | | | | [...] | | | | | | [place] [address] | | | | | | [phone] | | | | | | | | +--------+ + + + + documented as of this encounter Visit Diagnoses + + | Diagnosis | + + | Strain of left ankle, subsequent encounter - Primary | + + documented in this encounter
--- OUTSIDE RECORDS SUMMARY | ~2020-02-18 | XMS | Encounter Summary ---
Demographics + + + | Address | [address] | | | [place] [address] | + + + | Home Phone [...] Team Providers + +------+ + | Care Freelance Photographer Name | Role | Phone | + +------+ + PCP | Unavailable | + +------+ + Encounter Details +--------+ + + + + | Date | Type | Department | Care Team | Description | +--------+ + + + + | 09/08/ | [facility] | Jessica Hoang, | | | 2013 | Encounter | HOSPITAL [facility] | [address] | | | | | CENTER [address] | [place] | | | | | [place] | [address] | | | | | [address] | | | | | | [phone] | | | +--------+ + + + [...] | | | | | [place] [address] | | | | | | [phone] | | | | | | | | | | | | Julia Fisher, | | | | | | PT | | +--------+ + + + + | 02/18/ | Appointment | Rehabilitation | Erika Ernst, | | | 2019 | | | DO [address] [place] | | | | | | [place] [address] | | | | | | [phone] | | | | | | | | | | | | Genesis Ayon, SUSAN | | +--------+ + + + + | 02/25/ | Office | Primary Care | Erika Ernst, | | | 2019 | Visit | | DO [address] [place] | | | | | | [place] [address] | | | | | | [phone] | | | | | | | [...] | | | | | [place] [address] | | | | | | [phone] | | | | | | | | +--------+ + + + + | 02/27/ | Appointment | Radiology | Dhara, | | | 2019 | | | [address] | | | | | | 4TH [facility], | | | | | | [place] [address] | | | | | | [phone] | | | | | | | | +--------+ + + + + | 03/04/ | Appointment | Rehabilitation | Genesis Ayon OT | | | 2019 | | | | | +--------+ + + + + | 03/09/ | Office | Orthopedic Surgery | Jeffrey Gandhi, | | | 2019 | Visit | | [address] [facility] | | | | | | [place] [address] | | | | | | [phone] | | | | | | | [...] [place] | | | | | | [address] | | | | | | [phone] | | | | | | | [...] [address] | | | | | | [phone] | | | | | | | | | | | | Azul Yeboah, | | | | | | MD [address] | | | | | | [place] | | | | | | [place] [address] | | | | | | [phone] | | | | | | | [...] | | | | | | [place] [address] | | | | | | [phone] | | | | | | | | +--------+ + + + + documented as of this encounter Visit Diagnoses Not on filedocumented in this encounter"
--- OUTSIDE RECORDS SUMMARY | ~2020-02-18 | XMS | Encounter Summary ---
Demographics + + + | Address | [address] | | | [place] [address] | + + + | Home Phone [...] Team Providers + +------+ + | Care Circulating Nurse Name | Role | Phone | [...] 10/15/ | Telephone | [place] [facility] | Erika Ernst, | Lab Results | | 2020 | | [facility] | DO [address] | | | | | MEDICAL [facility] [address] | [place] [address] | | | | | [address] [place], | [phone] | | | | | [place] [address] | | | | | | [phone] | | | +--------+ + + + [...] | | | | | [place] [address] | | | | | | [phone] | | | | | | | | | | | | Forma, Julia M, | | | | | | PT | | +--------+ + + + + | 02/18/ | Appointment | Rehabilitation | Erika Ernst, | | | 2019 | | | DO [address] [place] | | | | | | [place] [address] | | | | | | [phone] | | | | | | | | | | | | Genesis Ayon OT | | +--------+ + + + + | 02/25/ | Office | Primary Care | Erika Ernst, | | | 2019 | Visit | | DO [address] [place] | | | | | | [place] [address] | | | | | | [phone] | | | | | | | [...] | | | | | [place] [address] | | | | | | [phone] | | | | | | | | +--------+ + + + + | 02/27/ | Appointment | Radiology | Dhara, | | | 2019 | | | [address] | | | | | | 4TH [facility], | | | | | | [place] [address] | | | | | | [phone] | | | | | | | [...] ST | | | | | | [place] [address] | | | | | | [phone] | | | | | | | [...] [place] | | | | | | [address] | | | | | | [phone] | | | | | | | [...] | | | | | [place] [address] | | | | | | [phone] | | | | | | | | | | | | Azul Yeboah, | | | | | | MD [address] | | | | | | [place] | | | | | | [place] [address] | | | | | | [phone] | | | | | | | [...] | | | | | | [place] [address] | | | | | | [phone] | | | | | | | | +--------+ + + + + documented as of this encounter Visit Diagnoses Not on filedocumented in this encounter"
--- OUTSIDE RECORDS SUMMARY | ~2020-02-18 | XMS | Encounter Summary ---
Demographics + + + | Address | [address] | | | [place] [address] | + + + | Home Phone [...] Team Providers + +------+ + | Care Lip And Gate Builder Name | Role | Phone | [...] + | 03/28/ | Clinical | [place] [facility] | Erika Ernst, | | | 2019 | Support | [facility] | [address] | | | | | MEDICAL CLINIC [address] | [place] [address] | | | | | [address] [place], | [phone] | | | | | [place] [address] | | | | | | [phone] | Denise Mcgregor, | | | | | | PROPERTY TECHNICIAN | | +--------+ + + + [...] + documented in this encounter Progress Notes Desi Mayorga RN - 03/28/2019 10:00 AM PDT Andrea Christine Suh come to the clinic today for [...] mouth. Once a week Cholecalciferol (VITAMIN D3) 38081 units TABS Take 1 tablet by mouth [...] medications on file prior to visit. Desi Mayorga, RN documented in this enc ounter Plan [...] [address] | | | | | | [phone] | | | | | | | | | | | | Julia Fisher, | | | | | | PT | | +--------+ + + + + | 02/18/ | Appointment | Rehabilitation | Erika Ernst, | | | 2019 | | | DO [address] [place] | | | | | | [place] [address] | | | | | | [phone] | | | | | | | | | | | | Genesis Ayon OT | | +--------+ + + + + | 02/25/ | Office | Primary Care | Erika Ernst, | | | 2019 | Visit | | [address] [place] [address] | | | | | | [place] [address] | | | | | | [phone] | | | | | | | [...] | | | | | [place] [address] | | | | | | [phone] | | | | | | | | +--------+ + + + + | 02/27/ | Appointment | Radiology | Dhara, | | | 2019 | | | [address] | | | | | | [address] [place], | | | | | | [place] [address] | | | | | | [phone] | | | | | | | | +--------+ + + + + | 03/04/ | Appointment | Rehabilitation | Genesis Ayon OT | | 2019 | | | | | +--------+ + + + + | 03/09/ | Office | Orthopedic Surgery | Jeffrey Gandhi, | | | 2019 | Visit | | MD [address] [facility] | | | | | | [place] [address] | | | | | | [phone] | | | | | | | [...] [place] | | | | | | [address] | | | | | | [phone] | | | | | | | [...] | | | | | [place] [address] | | | | | | [phone] | | | | | | | | | | | | Azul Yeboah, | | | | | | [address] | | | | | | [place] | | | | | | [place] [address] | | | | | | [phone] | | | | | | | [...] | | | | | | [place] [address] | | | | | | [phone] | | | | | | | | +--------+ + + + + documented as of this encounter Visit Diagnoses Not on filedocumented in this encounter"
--- OUTSIDE RECORDS SUMMARY | ~2020-02-18 | XMS | Encounter Summary ---
Demographics + + + | Address | [address] | | | [place] [address] | + + + | Home Phone [...] Team Providers + +------+ + | Care Triple Valve Mechanic Name | Role | Phone | [...] | syndrome | [place] | [address] | | | | | Procedures | [place], [place] | Phone: | | | | | MRI Brain w | [address] | [phone] | | | | | wo Contrast | Phone: | Fax: | | | | | | [phone] | [phone] | | | | | | Fax: | | | | | | | [phone] | | +--------+--------+ + + + + [...] | | | | | | [place] [address] | [place], [place] | | | | | | Phone: | [address] Phone: | | | | | | [phone] | [phone] | | | | | | Fax: | Fax: | | | | | | [phone] | [phone] | +--------+ + + + + + [...] | | | DR LUCERO [place], | [address] | | | | | [place] [address] | | | | | | [phone] | | | +--------+---------+ + + + [...] in this encounter Patient Instructions Patient Instructions Lusi Nichole MD - 01/30/2019 11:15 AM PDTFormatting of this note mi ght be different from the original. Patient Instructions [facility] Neurology Clinic Dr. Luis Nichole, Neurologist Date:01/30/2019 [...] le, and scrabble, other puzzle games like SudTrialPayu, Mahjong. Play computer/mobile applications such as English Helper and M[employer] GAMES Advised to wrist things down such as task to perform and conversation Any Questions please call BAKARI Terrell or Dr. Nichole at [facility] Neurology Clinic Coping with Concussion Concussion is [...] bath or taking a hot shower. Take qyqb-lfl-qxdrykk acetaminophen to relieve headache pain. Take them [...] treatment y ou need. Date Last Reviewed: 10/02/201719990084-5798 [employer]. [address] [place] [address], [place] [address]. All righ ts reserved. This information is [...] with dizziness or fainting. Date Last Reviewed: 08/02/201619998378-9854 [employer]. [address] [place] [address]. All rig ts reserved. This information is [...] may faint. Date Last Reviewed: 01/30/2018 [employer]. [address] [place] [address]. All righ ts reserved. This information is not intended as a substitute for professional medical care. Always follow your healthcare professional's instructions. documented in this encounter Progress Notes Luis Nichole MD - 01/30/2019 11:15 AM PDT Patient: Andrea Suh Medical Record: [id number] Date of Services: 01/30/2019 Referring Doctor: Erika [...] t siria recurrent, with patient usually receiving ftgg-brn-pbacqgh medications. The headaches are associated with occasional [...] cancer Maternal Grandmother Heart attack Maternal Aunt [place] Review of Systems: Denies earache, nasal catarrh, [...] mouth. Once a week Cholecalciferol (VITAMIN D3) 59764 units TABS Take 1 tablet by mouth [...] and oriented to time, place, and person. [facility] is fluent. Attention, comprehension, and general fund [...] CEREBELLAR EXAMINATION: There is no dysmetria on nnddzq-nc-ynne test. MISCELLANEOUS EXAM: Atraumatic, no evidence of [...] pain, surgeries, x 2 Plan: Patient Instructions [facility] Neurology Clinic Dr. Luis Nichole, Neurologist Date:01/30/2019 [...] le, and scrabble, other puzzle games like [employer], Mahjong. Play computer/mobile applications such as English Helper and [employer] GAMES Advised to wrist things down such as task to perform and conversation Any Questions please call BAKARI Terrell or Dr. Nichole at [facility] Neurology [facility] Coping with Concussion Concussion is [...] bath or taking a hot shower. Take fllh-xls-ldipcke acetaminophen to relieve headache pain. Take them [...] treatment y ou need. Date Last Reviewed: 10/02/201719998975-8243 [employer]. [address] [place] [address]. All righ ts reserved. This information is [...] or fainting. Date Last Reviewed: 08/02/2016 [employer]. [address] [place] [address]. All rig ts reserved. This information is [...] vessels, you may faint. Date Last Reviewed: 01/30/201819994227-5335 [employer]. [address] [place] [address]. All righ ts reserved. This information is not intended as a substitute for professional medical care. Always follow your healthcare professional's instructions. Luis Nichole MD01/30/201911:34 Electronically signed NOTE: Part of this report was transcribed using voice recognition software. Every effort was made to ensure accuracy. However, inadvertent computerize sem manager errors may be present documented in this encounter Plan of Treatment +--------+ + + + + | Date | Type | Specialty | Care Team | Description | +--------+ + + + + | 02/18/ | Appointment | Rehabilitation | Erika Ernst, | | | 2019 | | | DO [address] | | | | | | [place] [address] | | | | | | [phone] | | | | | | | | | | | | Julia Fisher, | | | | | | PT | | +--------+ + + + + | 02/18/ | Appointment | Rehabilitation | Erika Ernst, | | | 2019 | | | DO [address] [place] | | | | | | [place] [address] | | | | | | [phone] | | | | | | | | | | | | Genesis Ayon OT | | +--------+ + + + + | 02/25/ | Office | Primary Care | Erika Ernst, | | | 2019 | Visit | | DO [address] | | | | | | [place] [address] | | | | | | [phone] | | | | | | | [...] | | | | | [place] [address] | | | | | | [phone] | | | | | | | | +--------+ + + + + | 02/27/ | Appointment | Radiology | Dhara, | | | 2019 | | | [address] [place], | | | | | | [place] [address] | | | | | | [phone] | | | | | | | | +--------+ + + + + | 03/04/ | Appointment | Rehabilitation | Genesis Ayon OT | | | 2019 | | | | | +--------+ + + + + | 03/09/ | Office | Orthopedic Surgery | Jeffrey Gandhi, | | | 2019 | Visit | | [place] [address] [facility] | | | | | | [place] [address] | | | | | | [phone] | | | | | | | [...] [place] | | | | | | [address] | | | | | | [phone] | | | | | | | [...] | | | | | [place] [address] | | | | | | [phone] | | | | | | | | | | | | zAul Yeboah, | | | | | | MD [address] | | | | | | [place] | | | | | | [place] [address] | | | | | | [phone] | | | | | | | | +--------+ + + + + | 04/08/ | Appointment | Nutrition | Janel Webster | | | 2020 | | | [place] | | +--------+ + + + + | 05/21/ | Office | Neurology | Dhara, | | | 2019 | Visit | | [address] | | [address] [place], | | | | | | [place] [address] | | | | | | [phone] | | | | | | | [...]
--- OUTSIDE RECORDS SUMMARY | ~2020-02-18 | XMS | Encounter Summary ---
Demographics + + + | Address | [address] | | | [place] [address] | + + + | Home Phone [...] Team Providers + +------+ + | Care Single Wire Saw Operator Name | Role | Phone | + +------+ + | Erika Ernst DO | PCP | | + +------+ + Reason for Visit + + + | Reason | Comments | + + + | Discharge Without | | | Visit | | + + + Encounter Details +--------+ + + + + | Date | Type | Department | Care Team | Description | +--------+ + + + + | 02/28/ | Documentati | [place] [facility] | Michela Azevedo, | Discharge Without | | 2019 | on | HOSPITAL THERAPY OT | OT | Visit | | | | [address] [place] | | | | | | [place] | | | | | | [address] | | | | | | [phone] | | | +--------+ + + + [...] encounter Progress Notes Michela Azevedo OT - 02/28/2019 8:07 AM PDTDischarge without a visit 02/28/19: This POC is being DC'd as Andrea is indicated for surgery with Dr. Noriega. If she is in need of post hubbard rgical therapy we will be happy to see her but she will require a new referral from Dr. Oren mart at that time. Pt has been informed of this and reports agreement with same. documented in this encounter Plan of Treatment +--------+ + + + + | Date | Type | Specialty | Care Team | Description | +--------+ + + + + | 02/18/ | Appointment | Rehabilitation | Erika Ernst, | | | 2019 | | | DO [address] | | | | | | [place] [address] | | | | | | [phone] | | | | | | | | | | | | Julia Fisher, | | | | | | PT | | +--------+ + + + + | 02/18/ | Appointment | Rehabilitation | Erika Ernst, | | | 2019 | | | DO [address] [place] | | | | | | [place] [address] | | | | | | [phone] | | | | | | | | | | | | Genesis Ayon OT | | +--------+ + + + + | 02/25/ | Office | Primary Care | Erika Ernst, | | | 2019 | Visit | | DO [address] | | | | | | [place] [address] | | | | | | [phone] | | | | | | | [...] | | | | | [place] [address] | | | | | | [phone] | | | | | | | | +--------+ + + + + | 02/27/ | Appointment | Radiology | Dhara | | | 2019 | | | DWA[address] Ross [address] [place], | | | | | | [place] [address] | | | | | | [phone] | | | | | | | | +--------+ + + + + | 03/04/ | Appointment | Rehabilitation | Genesis Ayon OT | | | 2019 | | | | | +--------+ + + + + | 03/09/ | Office | Orthopedic Surgery | Jeffrey Gandhi, | | | 2019 | Visit | | [address] | | | | | | [place] [address] | | | | | | [phone] | | | | | | | [...] [place] | | | | | | [address] | | | | | | [phone] | | | | | | | [...] | | | | | [place] [address] | | | | | | [phone] | | | | | | | | | | | | Azul Yeboah, | | | | | | [address] | | | | | | [place] | | | | | | [place] [address] | | | | | | [phone] | | | | | | | [...] | | | | | | [place] [address] | | | | | | [phone] | | | | | | | | +--------+ + + + + documented as of this encounter Visit Diagnoses + + | Diagnosis | + + | Radial styloid tenosynovitis - Primary | + + | Right wrist pain Pain in joint, forearm | + + documented in this encounter"
--- OUTSIDE RECORDS SUMMARY | ~2020-02-18 | XMS | Encounter Summary ---
Demographics + + + | Address | [address] | | | [place] [address] | + + + | Home Phone [...] Providers + +------+ + | Care Medical Device Sales Name | Role | Phone | + +------+ + | Erika Ernst DO | PCP | | + +------+ + Reason for Visit + + + | Reason | Comments | + + + | Appointment Question | Pt request call today re: nausea, room spinning, migraine ect | + + + Encounter Details +--------+ + + + + | Date | Type | Department | Care Team | Description | +--------+ + + + + | 11/12/ | Telephone | [place] [facility] | Erika Ernst, | Appointment Question | | 2020 | | [facility] | DO [address] | (Pt request call | | | | [facility] | [place] [address] | today re: nausea, | | | | [address] [place], | [phone] | room spinning, | | | | [place] [address] | | migraine ect) | | | | [phone] | | | +--------+ + + + [...] | | | | | [place] [address] | | | | | | [phone] | | | | | | | [...] [address] | | | | | | [phone] | | | | | | | | | | | | Genesis Ayon OT | | +--------+ + + + + | 02/25/ | Office | Primary Care | Erika Ernst, | | | 2019 | Visit | | DO [address] | | | | | | [place] [address] | | | | | | [phone] | | | | | | | [...] [address] | | | | | | [phone] | | | | | | | | +--------+ + + + + | 02/27/ | Appointment | Radiology | Dhara, | | 2019 | | | DWAINE Ross [address] [place], | | | | | | [place] [address] | | | | | | [phone] | | | | | | | | +--------+ + + + + | 03/04/ | Appointment | Rehabilitation | Genesis Ayon OT | | | 2019 | | | | | +--------+ + + + + | 03/09/ | Office | Orthopedic Surgery | Jeffrey Gandhi, | | | 2019 | Visit | | [address] | | | | | | [place] [address] | | | | | | [phone] | | | | | | | | +--------+ + + + + | 03/11/ | Appointment | Rehabilitation | Genesis Ayon OT | | | 2019 | | | | | +--------+ + + + + | 03/18/ | Appointment | Rehabilitation | Geneiss Ayon, SUSAN | | | 2019 | | | | | +--------+ + + + + | 03/19/ | Office | Obstetrics and | Emily Avery | | | 2019 | Visit | Gynecology | DO [address] | | | [address] [place] | | | | | | [place], [place] | | | | | | [address] | | | | | | [phone] | | | | | | | [...] | | | | | [place] [address] | | | | | | [phone] | | | | | | | | | | | | Azul Yeboah, | | | | | | MD [address] | | | | | | [place] | | | | | | [place] [address] | | | | | | [phone] | | | | | | | [...] | | | | | | [place] [address] | | | | | | [phone] | | | | | | | | +--------+ + + + + documented as of this encounter Visit Diagnoses Not on filedocumented in this encounter"
--- OUTSIDE RECORDS SUMMARY | ~2020-02-18 | XMS | Encounter Summary ---
Demographics + + + | Address | [address] | | | [place] [address] | + + + | Home Phone [...] Providers + +------+ + | Care Environmental Epidemiologist Name | Role | Phone | + [...] [place] | | | | | | [address] | | | | | | [phone] | | | +--------+ + + + [...] | | | | | [place] [address] | | | | | | [phone] | | | | | | | | | | | | Julia Fisher, | | | | | | PT | | +--------+ + + + + | 02/18/ | Appointment | Rehabilitation | Erika Ernst, | | | 2019 | | | DO [address] | | | | | | [place] [address] | | | | | | [phone] | | | | | | | | | | | | Genesis Ayon OT | | +--------+ + + + + | 02/25/ | Office | Primary Care | Erika Ernst, | | | 2019 | Visit | | DO [address] | | | | | | [place] [address] | | | | | | [phone] | | | | | | | [...] | | | | | [place] [address] | | | | | | [phone] | | | | | | | | +--------+ + + + + | 02/27/ | Appointment | Radiology | Dhara, | | | 2019 | | | [address]WA[address] | | | [address] [place], | | | | | | [place] [address] | | | | | | [phone] | | | | | | | [...] | | | | [place] [address] | | | | | | [phone] | | | | | | | [...] [place] | | | | | | [address] | | | | | | [phone] | | | | | | | [...] | | | | | [place] [address] | | | | | | [phone] | | | | | | | | | | | | Azul Yeboah, | | | | | | [address] | | | | | | [place] | | | | | | [place] [address] | | | | | | [phone] | | | | | | | [...] | | | | | | [place] [address] | | | | | | [phone] | | | | | | | | +--------+ + + + + documented as of this encounter Visit Diagnoses Not on filedocumented in this encounter"
--- OUTSIDE RECORDS SUMMARY | ~2020-02-18 | XMS | Encounter Summary ---
Demographics + + + | Address | [address] | | | [place] [address] | + + + | Home Phone [...] Team Providers + +------+ + | Care Patent Paralegal Name | Role | Phone | + [...] | | | [facility] | Post Tensioning Ironworker-Clinical | | | | | [address] [facility] [place], | | | | | | [place] [address] | | | | | | [phone] | | | +--------+ + + + [...] | | | | | [place] [address] | | | | | | [phone] | | | | | | | | | | | | Julia Fisher, | | | | | | PT | | +--------+ + + + + | 02/18/ | Appointment | Rehabilitation | Erika Ernst, | | | 2019 | | | DO [address] | | | | | | [place] [address] | | | | | | [phone] | | | | | | | | | | | | Genesis Ayon OT | | +--------+ + + + + | 02/25/ | Office | Primary Care | Erika Ernst, | | | 2019 | Visit | | DO [address] | | | | | | [place] [address] | | | | | | [phone] | | | | | | | [...] | | | | | [place] [address] | | | | | | [phone] | | | | | | | | +--------+ + + + + | 02/27/ | Appointment | Radiology | Dhara, | | | 2019 | | | [address] | | | | | | 4TH [facility], | | | | | | [place] [address] | | | | | | [phone] | | | | | | | | +--------+ + + + + | 03/04/ | Appointment | Rehabilitation | Genesis Ayon OT | | | 2019 | | | | | +--------+ + + + + | 03/09/ | Office | Orthopedic Surgery | Jeffrey Gandhi, | | | 2019 | Visit | | [address] | | | | | | [place] [address] | | | | | | [phone] | | | | | | | [...] [place] | | | | | | [address] | | | | | | [phone] | | | | | | | [...] | | | | | [place] [address] | | | | | | [phone] | | | | | | | | | | | | Azul Yeboah, | | | | | | MD [address] | | | | | | [place] | | | | | | [place] [address] | | | | | | [phone] | | | | | | | [...] | | | | | | [place] [address] | | | | | | [phone] | | | | | | | | +--------+ + + + + documented as of this encounter Visit Diagnoses Not on filedocumented in this encounter"
--- OUTSIDE RECORDS SUMMARY | ~2020-02-18 | XMS | Encounter Summary ---
Demographics + + + | Address | [address] | | | [place] [address] | + + + | Home Phone [...] Team Providers + +------+ + | Care Rag Baler Name | Role | Phone | + +------+ + PCP | Unavailable | + +------+ + Encounter Details +--------+ + + + + | Date | Type | Department | Care Team | Description | +--------+ + + + + | 06/22/ | [facility] | [facility] | Conversion | | | 2011 | Encounter | [facility] | Transaction, | | | | | [facility] | Provider Unknown | | | | | [facility] [facility], | [phone] | | | | | [place] [address] | | | | | | [phone] | | | +--------+ + + + [...] | | | | | [place] [address] | | | | | | [phone] | | | | | | | [...] [address] | | | | | | [phone] | | | | | | | | | | | | Genesis Ayon OT | | +--------+ + + + + | 02/25/ | Office | Primary Care | Erika Ernst, | | | 2019 | Visit | | DO [address] | | | | | | [place] [address] | | | | | | [phone] | | | | | | | [...] | | | | | [place] [address] | | | | | | [phone] | | | | | | | | +--------+ + + + + | 02/27/ | Appointment | Radiology | Dhara, | | | 2019 | | | [address] | | | | | | [facility] | | | | | | [place] [address] | | | | | | [phone] | | | | | | | | +--------+ + + + + | 03/04/ | Appointment | Rehabilitation | Genseis Ayon OT | | | 2019 | | | | | +--------+ + + + + | 03/09/ | Office | Orthopedic Surgery | Jeffrey Gandhi, | | | 2019 | Visit | | [address] | | | | | | [place] [address] | | | | | | [phone] | | | | | | | [...] [place] | | | | | | [address] | | | | | | [phone] | | | | | | | [...] | | | | | [place] [address] | | | | | | [phone] | | | | | | | | | | | | Azul Yeboah, | | | | | | MD [address] | | | | | | [place] | | | | | | [place] [address] | | | | | | [phone] | | | | | | | [...] | | | | | | [place] [address] | | | | | | [phone] | | | | | | | | +--------+ + + + + documented as of this encounter Visit Diagnoses Not on filedocumented in this encounter"
--- OUTSIDE RECORDS SUMMARY | ~2020-02-18 | XMS | Encounter Summary ---
Demographics + + + | Address | [address] | | | [place] [address] | + + + | Home Phone [...] Team Providers + +------+ + | Care Recorder Helper Seismograph Name | Role | Phone | + [...] | [facility] | [place] [address] | | | | [address] [place], | [phone] | | | | | [place] [address] | | | | | | [phone] | | | +--------+ + + + [...] | | | | | [place] [address] | | | | | | [phone] | | | | | | | | | | | | Julia Fisher, | | | | | | PT | | +--------+ + + + + | 02/18/ | Appointment | Rehabilitation | Erika Ernst, | | | 2019 | | | DO [address] | | | | | | [place] [address] | | | | | | [phone] | | | | | | | | | | | | Genesis Ayon OT | | +--------+ + + + + | 02/25/ | Office | Primary Care | Erika Ernst, | | | 2019 | Visit | | DO [address] | | | | | | [place] [address] | | | | | | [phone] | | | | | | | [...] | | | | | [place] [address] | | | | | | [phone] | | | | | | | | +--------+ + + + + | 02/27/ | Appointment | Radiology | Dhara, | | | 2019 | | | [address] | | | | | | [facility] | | | | | | [place] [address] | | | | | | [phone] | | | | | | | [...] | | | | | [place] [address] | | | | | | [phone] | | | | | | | [...] [place] | | | | | | [address] | | | | | | [phone] | | | | | | | [...] | | | | | [place] [address] | | | | | | [phone] | | | | | | | | | | | | Azul Yeboah, | | | | | | MD [address] | | | | | | [place] | | | | | | [place] [address] | | | | | | [phone] | | | | | | | [...] | | | | | | [place] [address] | | | | | | [phone] | | | | | | | | +--------+ + + + + documented as of this encounter Visit Diagnoses Not on filedocumented in this encounter"
--- OUTSIDE RECORDS SUMMARY | ~2020-02-18 | XMS | Encounter Summary ---
Demographics + + + | Address | [address] | | | [place] [address] | + + + | Home Phone [...] Team Providers + +------+ + | Care Station Mechanic Helper Name | Role | Phone | [...] [facility] [place] [address] | Vitamin D | | | | [address] [place], | [phone] | deficiency; Thyroid | | | | [place] [address] | | disorder screening | | | | [phone] | | | +--------+ + + + [...] | | | | | [place] [address] | | | | | | [phone] | | | | | | | | | | | | Julia Fisher, | | | | | | PT | | +--------+ + + + + | 02/18/ | Appointment | Rehabilitation | Erika Ernst, | | | 2019 | | | DO [address] | | | | | | [place] [address] | | | | | | [phone] | | | | | | | | | | | | Genesis Ayon OT | | +--------+ + + + + | 02/25/ | Office | Primary Care | Erika Ernst, | | | 2019 | Visit | | DO [address] | | | | | | [place] [address] | | | | | | [phone] | | | | | | | [...] | | | | | [place] [address] | | | | | | [phone] | | | | | | | | +--------+ + + + + | 02/27/ | Appointment | Radiology | Dhara, | | | 2019 | | | [address] | | | | | | 4TH [facility], | | | | | | [place] [address] | | | | | | [phone] | | | | | | | [...] | | | | | [place] [address] | | | | | | [phone] | | | | | | | [...] [place] | | | | | | [address] | | | | | | [phone] | | | | | | | [...] | | | | | [place] [address] | | | | | | [phone] | | | | | | | | | | | | Azul Yeboah, | | | | | | MD [address] | | | | | | [place] | | | | | | [place] [address] | | | | | | [phone] | | | | | | | [...] | | | | | | [place] [address] | | | | | | [phone] | | | | | | | [...] + + | [place] [facility] | [address] | [place] | [phone] | | H[facility]ITAL [facility] | | [address] | | + + + + + [...] + + | [place] [facility] | [address] | [place] | [phone] | | [facility] | | [address] | | | [facility] | [...] + + | [place] [facility] | [address] | [place] | [phone] | | HOSPITAL LAB[facility]ORY | | [address] | | + + + + + [...] + + | [place] [facility] | [address] | [place], [place] | [phone] | | HOSPITAL LAB[facility]ORY | | [address] | | + + + + + [...] + + | [place] [facility] | [address] | [place], [place] | [phone] | | [facility] | | [address] | | | [facility] | | | | + + [...]
--- OUTSIDE RECORDS SUMMARY | ~2020-02-18 | XMS | Encounter Summary ---
Demographics + + + | Address | [address] | | | [place] [address] | + + + | Home Phone [...] Providers + +------+ + | Care Die Cast Die Maker Name | Role | Phone | + +------+ + PCP | Unavailable | + +------+ + Encounter Details +--------+ + + + + | Date | Type | Department | Care Team | Description | +--------+ + + + + | 10/30/ | Hospital | [place] [facility] | Jenise Benitez, | | | 2015 | Encounter | HOSPITAL NURSERY | STAVE MACHINE TENDER [address] | | | | | [address] [place] | [place] [address] | | | | | [place], [place] | [phone] | | | | | [address] | | | | | | [phone] | | | +--------+ + + + [...] | | | | | [place] [address] | | | | | | [phone] | | | | | | | | | | | | Julia Fisher, | | | | | | PT | | +--------+ + + + + | 02/18/ | Appointment | Rehabilitation | Erika Ernst, | | | 2019 | | | DO [address] [place] | | | | | | [place] [address] | | | | | | [phone] | | | | | | | | | | | | [facility] | | +--------+ + + + + | 02/25/ | Office | Primary Care | Erika Ernst, | | | 2019 | Visit | | DO [address] | | | | | | [place] [address] | | | | | | [phone] | | | | | | | [...] | | | | | [place] [address] | | | | | | [phone] | | | | | | | | +--------+ + + + + | 02/27/ | Appointment | Radiology | Dhara, | | | 2019 | | | DWA[address] | | | | | | [address] [facility], | | | | | | [place] [address] | | | | | | [phone] | | | | | | | | +--------+ + + + + | 03/04/ | Appointment | Rehabilitation | [facility] | | | 2019 | | | | | +--------+ + + + + | 03/09/ | Office | Orthopedic Surgery | Jeffrey Gandhi, | | 2019 | Visit | | [address] | | | | | | [place] [address] | | | | | | [phone] | | | | | | | [...] [place] | | | | | | [address] | | | | | | [phone] | | | | | | | [...] | | | | | [place] [address] | | | | | | [phone] | | | | | | | | | | | | Azul Yeboah, | | | | | | MD [address] | | | | | | [place] | | | | | | [place] [address] | | | | | | [phone] | | | | | | | [...] | | | | | | [place] [address] | | | | | | [phone] | | | | | | | | +--------+ + + + + documented as of this encounter Visit Diagnoses Not on filedocumented in this encounter"
--- OUTSIDE RECORDS SUMMARY | ~2020-02-18 | XMS | Encounter Summary ---
Demographics + + + | Address | [address] | | | [place] [address] | + + + | Home Phone [...] Providers + +------+ + | Care Third Officer Name | Role | Phone | [...] | [facility] | [place] [address] | | | | | [address] [place], | [phone] | | | | | [place] [address] | | | | | | [phone] | | | +--------+ + + + [...] | | | | | [place] [address] | | | | | | [phone] | | | | | | | | | | | | Julia Fisher, | | | | | | PT | | +--------+ + + + + | 02/18/ | Appointment | Rehabilitation | Erika Ernst, | | | 2019 | | | DO [address] | | | | | | [place] [address] | | | | | | [phone] | | | | | | | | | | | | [facility] OT | | +--------+ + + + + | 02/25/ | Office | Primary Care | Erika Ernst, | | | 2019 | Visit | | DO [address] | | | | | | [place] [address] | | | | | | [phone] | | | | | | | [...] | | | | | | [place] [address] | | | | | | [phone] | | | | | | | | +--------+ + + + + | 02/27/ | Appointment | Radiology | Dhara, | | | 2019 | | | [address] | | | | | | 4TH [facility], | | | | | | [place] [address] | | | | | | [phone] | | | | | | | | +--------+ + + + + | 03/04/ | Appointment | Rehabilitation | Genesis Ayon OT | | | 2019 | | | | | +--------+ + + + + | 03/09/ | Office | Orthopedic Surgery | Jeffrey Gandhi, | | | 2019 | Visit | | [address] | | | | | | [place] [address] | | | | | | [phone] | | | | | | | [...] [place] | | | | | | [address] | | | | | | [phone] | | | | | | | [...] | | | | | [place] [address] | | | | | | [phone] | | | | | | | | | | | | Azul Yeboah, | | | | | | [address] | | | | | | [place] | | | | | | [place] [address] | | | | | | [phone] | | | | | | | [...] | | | | | | [place] [address] | | | | | | [phone] | | | | | | | | +--------+ + + + + documented as of this encounter Visit Diagnoses Not on filedocumented in this encounter"
--- OUTSIDE RECORDS SUMMARY | ~2020-02-18 | XMS | Encounter Summary ---
Demographics + + + | Address | [address] | | | [place] [address] | + + + | Home Phone [...] Team Providers + +------+ + | Care Yard Foreman Name | Role | Phone | [...] | [place], [place] | [place] [address] | | | | | [address] | [phone] | | | | | [phone] | | | +--------+ + + + [...] 2019 | | | DO [address] | | | | | | [place] [address] | | | | | | [phone] | | | | | | | | | | | | Julia Fisher, | | | | | | PT | | +--------+ + + + + | 02/18/ | Appointment | Rehabilitation | Erika Ernst, | | | 2019 | | | DO [address] [place] | | | | | | [place] [address] | | | | | | [phone] | | | | | | | | | | | | [facility] OT | | +--------+ + + + + | 02/25/ | Office | Primary Care | Erika Ernst, | | | 2019 | Visit | | DO [address] | | | | | | [place] [address] | | | | | | [phone] | | | | | | | [...] | | | | | [place] [address] | | | | | | [phone] | | | | | | | | +--------+ + + + + | 02/27/ | Appointment | Radiology | Dhara, | | | 2019 | | | [address] | | | | | | 4TH [facility], | | | | | | [place] [address] | | | | | | [phone] | | | | | | | [...] [place] | | | | | | [place] [address] | | | | | | [phone] | | | | | | | [...] [place] | | | | | | [address] | | | | | | [phone] | | | | | | | [...] | | | | | [place] [address] | | | | | | [phone] | | | | | | | | | | | | Azul Yeboah, | | | | | | MD [address] | | | | | | [place] | | | | | | [place] [address] | | | | | | [phone] | | | | | | | [...] | | | | | | [place] [address] | | | | | | [phone] | | | | | | | | +--------+ + + + + documented as of this encounter Visit Diagnoses Not on filedocumented in this encounter"
--- OUTSIDE RECORDS SUMMARY | ~2020-02-18 | XMS | Encounter Summary ---
Demographics + + + | Address | [address] | | | [place] [address] | + + + | Home Phone [...] Team Providers + +------+ + | Care Naval Aircrewman Operator Name | Role | Phone | [...] Medication Question | | 2019 | | [facility] | DO [address] [place] | (Problem w/Asthma) | | | | [facility] [address] | [facility] [place] [address] | | | | | [address] [place], | [phone] | | | | | [place] [address] | | | | | | [phone] | | | +--------+ + + + [...] | | | | | [place] [address] | | | | | | [phone] | | | | | | | | | | | | Julia Fisher, | | | | | | PT | | +--------+ + + + + | 02/18/ | Appointment | Rehabilitation | Erika Ernst, | | | 2019 | | | DO [address] | | | | | | [place] [address] | | | | | | [phone] | | | | | | | | | | | | [facility] OT | | +--------+ + + + + | 02/25/ | Office | Primary Care | Erika Ernst, | | | 2019 | Visit | | DO [address] [place] | | | | | | [place] [address] | | | | | | [phone] | | | | | | | [...] | | | | | [place] [address] | | | | | | [phone] | | | | | | | | +--------+ + + + + | 02/27/ | Appointment | Radiology | Dhara, | | | 2019 | | | [address] | | | | | | 4TH [facility] [place], | | | | | | [place] [address] | | | | | | [phone] | | | | | | | [...] [place] | | | | | | [place] [address] | | | | | | [phone] | | | | | | | [...] [place] | | | | | | [address] | | | | | | [phone] | | | | | | | [...] | | | | | [place] [address] | | | | | | [phone] | | | | | | | | | | | | Azul Yeboah, | | | | | | MD [address] | | | | | | [place] | | | | | | [place] [address] | | | | | | [phone] | | | | | | | [...] | | | | | | [place] [address] | | | | | | [phone] | | | | | | | | +--------+ + + + + documented as of this encounter Visit Diagnoses Not on filedocumented in this encounter"
--- OUTSIDE RECORDS SUMMARY | ~2020-02-18 | XMS | Encounter Summary ---
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 [address] [place]LEY | | | Required | | excisional | [address] , | THERAPY 1959 | | | | | debridement | [place] [address] [place] | [address] | | | | | Procedures | [place], [place] | [place] | | | | | [place] | [address] | [address] | | | | | | Phone: | Phone: | | | | | | [phone] | [phone] | | | | | | Fax: | Fax: | | | | | | [phone] | [phone] | +--------+ + + + + + [...] | | | [place], [place] | [address] | | | | | [address] | [phone] | | | | | [phone] | | | +--------+---------+ + + + [...] | : 1990 | Medical Record Number:[id number] | Author: MOHSEN MartinezP-C | Date of Encounter: 04/30/2019 Surgeon: Inocencio Noriega MD History of present illness Andrea Suh is a 29 y.o. female that follows up in the office 4 weeks status post r ight extensor carpi ulnaris tenosynovectomy, reporting no complications with her recovery ot her than a loose cast that was applied by the [facility] ER when she presented to them [...] cancer Maternal Grandmother Heart attack Maternal Aunt [place] Social History Tobacco Use Smoking status: Never [...] vital signs recorded by my human resources assistant manager today, a s found in this chart note. Electronically signed by: MOHSEN Martinez 04/30/2019 at 13:10 Note: Part of this report was transcribed using voice recognition software. Every effort wa s made to ensure accuracy. However, inadvertent computerized main entree cook and cashier errors may be pre sent. CC: Erika [...] | | | | | [place] [address] | | | | | | [phone] | | | | | | | | | | | | Julia Fisher, | | | | | | PT | | +--------+ + + + + | 02/18/ | Appointment | Rehabilitation | Erika Ernst, | | | 2019 | | | DO [address] | | | | | | [place] [address] | | | | | | [phone] | | | | | | | | | | | | [facility] OT | | +--------+ + + + + | 02/25/ | Office | Primary Care | Erika Ernst, | | | 2019 | Visit | | DO [address] [place] | | | | | | [place] [address] | | | | | | [phone] | | | | | | | [...] | | | | | [place] [address] | | | | | | [phone] | | | | | | | | +--------+ + + + + | 02/27/ | Appointment | Radiology | Dhara, | | | 2019 | | | [address] | | | | | | 4TH [facility], | | | | | | [place] [address] | | | | | | [phone] | | | | | | | | +--------+ + + + + | 03/04/ | Appointment | Rehabilitation | Genesis Ayon OT | | | 2019 | | | | | +--------+ + + + + | 03/09/ | Office | Orthopedic Surgery | Jeffrey Gandhi, | | | 2019 | Visit | | [address] | | | | | | [place] [address] | | | | | | [phone] | | | | | | | [...] [place] | | | | | | [address] | | | | | | [phone] | | | | | | | [...] | | | | | [place] [address] | | | | | | [phone] | | | | | | | | | | | | Azul Yeboah, | | | | | | MD [address] | | | | | | [place] | | | | | | [place] [address] | | | | | | [phone] | | | | | | | | +--------+ + + + + | 04/08/ | Appointment | Nutrition | Janel Webster | | | 2019 | | | [address], [address] | | +--------+ + + + + | 05/21/ | Office | Neurology | Dhara, | | | 2019 | Visit | | Cody SHELL SHOP SUPERVISOR [address] | | | | | | 4TH [facility], | | | | | | [place] [address] | | | | | | [phone] | | | | | | | [...]
--- OUTSIDE RECORDS SUMMARY | ~2020-02-18 | XMS | Encounter Summary ---
Demographics + + + | Address | [address] | | | [place] [address] | + + + | Home Phone [...] Providers + +------+ + | Care Delivery Sales Worker Name | Role | Phone | [...] | | [address] [place], | [address] | | | | | [place] [address] | [phone] | | | | | [phone] | | | +--------+ + + + [...] | | 2020 | | | DO [facility] | | | | | | [place], [place] [address] | | | | | | [phone] | | | | | | | | | | | | Julia Fisher, | | | | | | PT | | +--------+ + + + + | 02/18/ | Appointment | Rehabilitation | Erika Ernst, | | | 2019 | | | DO [address] | | | | | | [place] [address] | | | | | | [phone] | | | | | | | | | | | | Genesis Ayon, SUSAN | | +--------+ + + + + | 02/25/ | Office | Primary Care | Erika Ernst, | | | 2019 | Visit | | DO [address] [place] | | | | | | [place] [address] | | | | | | [phone] | | | | | | | [...] | | | | | [place] [address] | | | | | | [phone] | | | | | | | | +--------+ + + + + | 02/27/ | Appointment | Radiology | Dhara, | | | 2019 | | | [address] | | | | | | 4TH [facility] [place], | | | | | | [place] [address] | | | | | | [phone] | | | | | | | [...] | | | | | [place] [address] | | | | | | [phone] | | | | | | | [...] [place] | | | | | | [address] | | | | | | [phone] | | | | | | | [...] | | | | | [place] [address] | | | | | | [phone] | | | | | | | | | | | | Azul Yeboah, | | | | | | MD [address] | | | | | | [place] | | | | | | [place] [address] | | | | | | [phone] | | | | | | | [...] | | | | | | [place] [address] | | | | | | [phone] | | | | | | | | +--------+ + + + + documented as of this encounter Visit Diagnoses Not on filedocumented in this encounter"
--- OUTSIDE RECORDS SUMMARY | ~2020-02-18 | XMS | Encounter Summary ---
Demographics + + + | Address | [address] | | | [place] [address] | + + + | Home Phone [...] Providers + +------+ + | Care Freelance Web Designer Name | Role | Phone | [...] [address] [place] | [place] [address] | | | | | [place], [place] | [phone] | | | | | [address] | | | | | | [phone] | | | +--------+ + + + [...] | 03/19/20 | | | (VITAMIN D3) 09618 | mouth Once a week | tablet [...] | | | | | [place] [address] | | | | | | [phone] | | | | | | | | | | | | Julia Fisher, | | | | | | PT | | +--------+ + + + + | 02/18/ | Appointment | Rehabilitation | Erika Ernst, | | | 2019 | | | DO [address] [place] | | | | | | [place] [address] | | | | | | [phone] | | | | | | | | | | | | Genesis Ayon, OT | | +--------+ + + + + | 02/25/ | Office | Primary Care | Erika Ernst, | | | 2019 | Visit | | DO [address] [place] | | | | | | [place] [address] | | | | | | [phone] | | | | | | | [...] | | | | | [place] [address] | | | | | | [phone] | | | | | | | | +--------+ + + + + | 02/27/ | Appointment | Radiology | Dhara, | | | 2019 | | | [address] | | | | | | 4TH [facility], | | | | | | [place] [address] | | | | | | [phone] | | | | | | | | +--------+ + + + + | 03/04/ | Appointment | Rehabilitation | Genesis Ayon OT | | | 2019 | | | | | +--------+ + + + + | 03/09/ | Office | Orthopedic Surgery | Jeffrey Gandhi, | | 2019 | Visit | | [address] | | | | | | [place] [address] | | | | | | [phone] | | | | | | | [...] [place] | | | | | | [address] | | | | | | [phone] | | | | | | | [...] | | | | | [place] [address] | | | | | | [phone] | | | | | | | | | | | | Azul Yeboah, | | | | | | MD [address] | | | | | | [place] | | | | | | [place] [address] | | | | | | [phone] | | | | | | | | +--------+ + + + + | 04/08/ | Appointment | Nutrition | Janel Webster | | | 2019 | | | [place], [place] | | +--------+ + + + + | 05/21/ | Office | Neurology | Dhara, | | | 2019 | Visit | | Maddylauraromario, NURSING OFFICER [address] | | | | | | 4TH [facility], | | | | | | [place] [address] | | | | | | [phone] | | | | | | | [...]
--- OUTSIDE RECORDS SUMMARY | ~2020-02-18 | XMS | Encounter Summary ---
Demographics + + + | Address | [address] | | | [place] [address] | + + + | Home Phone [...] | [facility] | | | [...] Team Providers + +------+ + | Care Osteopathic Resident Name | Role | Phone | + [...] | | | to excess | [place] [address] | | | | | | calories | Phone: | | | | | | without | [phone] | | | | | | serious | Fax: | | | | | | comorbidity | [phone] | | | | | | with [...] | | | | | | | [facility] | | | | | | [...] | SERVICES [address] | [place] [address] | malignant; Morbid | | | | DR [place], [place] | [phone] | obesity (HCC); Body | | | | [address] | | mass index | | | | [phone] | Janel Webster, | 50.0-59.9, adult | [...] | 04/12/20 | | | (VITAMIN D3) 95008 | mouth Once a week | tablet [...] | | | | | [place] [address] | | | | | | [phone] | | | | | | | | | | | | Julia Fisher, | | | | | | PT | | +--------+ + + + + | 02/18/ | Appointment | Rehabilitation | Erika Ernst, | | | 2019 | | | DO [address] [place] | | | | | | [place] [address] | | | | | | [phone] | | | | | | | | | | | | Genesis Ayon OT | | +--------+ + + + + | 02/25/ | Office | Primary Care | Erika Ernst, | | | 2019 | Visit | | DO [address] [place] [address] | | | | | | [place] [address] | | | | | | [phone] | | | | | | | [...] | | | | | [place] [address] | | | | | | [phone] | | | | | | | | +--------+ + + + + | 02/27/ | Appointment | Radiology | Dhara, | | | 2019 | | | [address] Ross [address] | | | | | | [address] [place], | | | | | | [place] [address] | | | | | | [phone] | | | | | | | | +--------+ + + + + | 03/04/ | Appointment | Rehabilitation | Genesis Ayon OT | | | 2019 | | | | | +--------+ + + + + | 03/09/ | Office | Orthopedic Surgery | Jeffrey Gandhi, | | | 2019 | Visit | | [address] | | | | | | [place] [address] | | | | | | [phone] | | | | | | | [...] [place] | | | | | | [address] | | | | | | [phone] | | | | | | | [...] | | | | | [place] [address] | | | | | | [phone] | | | | | | | | | | | | Azul Yeboah, | | | | | | [address] | | | | | | [place] | | | | | | [place] [address] | | | | | | [phone] | | | | | | | [...] | | | | | | [place] [address] | | | | | | [phone] | | | | | | | [...]
--- OUTSIDE RECORDS SUMMARY | ~2020-02-18 | XMS | Encounter Summary ---
Demographics + + + | Address | [address] | | | [place] [address] | + + + | Home Phone [...] Team Providers + +------+ + | Care Test Engineering Manager Name | Role | Phone [...] | | | | [place], [place] | [address] | | | | | [address] | [phone] | | | | | [phone] | | | +--------+ + + + [...] | | | | | [place] [address] | | | | | | [phone] | | | | | | | | | | | | Julia Fisher, | | | | | | PT | | +--------+ + + + + | 02/18/ | Appointment | Rehabilitation | Erika Ernst, | | | 2019 | | | DO [address] [place] | | | | | | [place] [address] | | | | | | [phone] | | | | | | | | | | | | Genesis Ayon OT | | +--------+ + + + + | 02/25/ | Office | Primary Care | Erika Ernst, | | | 2019 | Visit | | DO [address] [place] [address] | | | | | | [place] [address] | | | | | | [phone] | | | | | | | [...] | | | | | [place] [address] | | | | | | [phone] | | | | | | | | +--------+ + + + + | 02/27/ | Appointment | Radiology | Dhara, | | | 2019 | | | DWAINE Ross [address] | | | | | | [address] [place], | | | | | | [place] [address] | | | | | | [phone] | | | | | | | | +--------+ + + + + | 03/04/ | Appointment | Rehabilitation | Genesis Ayon OT | | | 2019 | | | | | +--------+ + + + + | 03/09/ | Office | Orthopedic Surgery | Jeffrey Gandhi, | | | 2019 | Visit | | [address] | | | | | | [place] [address] | | | | | | [phone] | | | | | | | [...] [place] | | | | | | [address] | | | | | | [phone] | | | | | | | [...] | | | | | [place] [address] | | | | | | [phone] | | | | | | | | | | | | Azul Yeboah, | | | | | | MD [address] | | | | | | [place] | | | | | | [place] [address] | | | | | | [phone] | | | | | | | [...] | | | | | | [place] [address] | | | | | | [phone] | | | | | | | | +--------+ + + + + documented as of this encounter Visit Diagnoses Not on filedocumented in this encounter"
--- OUTSIDE RECORDS SUMMARY | ~2020-02-18 | XMS | Encounter Summary ---
Demographics + + + | Address | [address] | | | [place] [address] | + + + | Home Phone [...] + +------+ + | Care Facility Maintenance Helper Name | Role | Phone | [...] | | | | | type | MANAGER [facility] [address] | [address] | | | | | Procedures | [address] | [place], [place] | | | | | [place] | [place], | [address] | | | | | | [place] [address] | Phone: | | | | | | Phone: | [phone] | | | | | | [phone] | Fax: | | | | | | Fax: | [phone] | | | | | | [phone] | | + + + + + + + Encounter Details +--------+ + + + + | Date | Type | Department | Care Team | Description | +--------+ + + + + | 01/01/ | Orders Only | [place] [facility] | Harvey, | Hematuria, | | 2020 | | [facility] | [place], MANAGER [facility] [address] | unspecified type | | | | [facility] [address] | (Primary Dx) | | | | [address] [place], | [place] [address] | | | | | [place] [address] | [phone] | | | | | [phone] | | | +--------+ + + + [...] | 2019 | | | DO [facility] | | | | | | [place] [address] | | | | | | [phone] | | | | | | | | | | | | Julia Fisher, | | | | | | PT | | +--------+ + + + + | 02/18/ | Appointment | Rehabilitation | Erika Ernst, | | | 2019 | | | DO [address] [place] | | | | | | [place] [address] | | | | | | [phone] | | | | | | | | | | | | Genesis Ayon OT | | +--------+ + + + + | 02/25/ | Office | Primary Care | Erika Ernst, | | | 2019 | Visit | | DO [address] [place] | | | | | | [place] [address] | | | | | | [phone] | | | | | | | [...] | | | | | [place] [address] | | | | | | [phone] | | | | | | | | +--------+ + + + + | 02/27/ | Appointment | Radiology | Dhara, | | | 2019 | | | [address]WA[address] Ross [address] | | | | | | [address] [place], | | | | | | [place] [address] | | | | | | [phone] | | | | | | | [...] | | | | [place] [address] | | | | | | [phone] | | | | | | | [...] [place] | | | | | | [address] | | | | | | [phone] | | | | | | | [...] | | | | | [place] [address] | | | | | | [phone] | | | | | | | | | | | | Azul Yeboah, | | | | | | MD [address] | | | | | | [place] | | | | | | [place] [address] | | | | | | [phone] | | | | | | | [...] | | | | | | [place] [address] | | | | | | [phone] | | | | | | | [...]
--- OUTSIDE RECORDS SUMMARY | ~2020-02-18 | XMS | Encounter Summary ---
Demographics + + + | Address | [address] | | | [place] [address] | + + + | Home Phone [...] + +------+ + | Care Medical Assistant Per Diem Name | Role | Phone | + [...] | +--------+ + + + + | 11/05/ | Telephone | [place] [facility] | Emily Avery | Advice Only | | 2020 | | [facility] | DO Rad[address] | | | | | CL[address] | [address] | | | | | [address] [place], | [place], [place] | | | | | [place] [address] | [address] | | | | | [phone] | [phone] | | | | | | | [...] | | 2019 | | | DO [facility] | | | | | | [place] [address] | | | | | | [phone] | | | | | | | | | | | | Julia Fisher, | | | | | | PT | | +--------+ + + + + | 02/18/ | Appointment | Rehabilitation | Erika Ernst, | | | 2019 | | | DO [address] [place] | | | | | | [place] [address] | | | | | | [phone] | | | | | | | | | | | Genesis Ayon OT | | +--------+ + + + + | 02/25/ | Office | Primary Care | Erika Ernst, | | | 2019 | Visit | | DO [address] [place] | | | | | | [place] [address] | | | | | | [phone] | | | | | | | [...] | | | | | [place] [address] | | | | | | [phone] | | | | | | | | +--------+ + + + + | 02/27/ | Appointment | Radiology | Dhara, | | | 2019 | | | [address] | | | | | | [address]TH [facility], | | | | | | [place] [address] | | | | | | [phone] | | | | | | | [...] | | | | [place] [address] | | | | | | [phone] | | | | | | | [...] [place] | | | | | | [address] | | | | | | [phone] | | | | | | | [...] | | | | | [place] [address] | | | | | | [phone] | | | | | | | | | | | | Azul Yeboah, | | | | | | MD [address] | | | | | | [place] | | | | | | [place] [address] | | | | | | [phone] | | | | | | | [...] | | | | | | [place] [address] | | | | | | [phone] | | | | | | | | +--------+ + + + + documented as of this encounter Visit Diagnoses Not on filedocumented in this encounter"
--- OUTSIDE RECORDS SUMMARY | ~2020-02-18 | XMS | Encounter Summary ---
Demographics + + + | Address | [address] | | | [place] [address] | + + + | Home Phone [...] Providers + +------+ + | Care Lead Shipper Name | Role | Phone | + +------+ + | Erika Ernst DO | PCP | | + +------+ + Reason for Visit + + + | Reason | Comments | + + + | Nursing Visit | paperwork for 827 workers comp | + + + Encounter Details +--------+ + + + + | Date | Type | Department | Care Team | Description | +--------+ + + + + | 05/20/ | Clinical | [facility] | uLis Nichole MD | Vertigo (Primary Dx) | | 2019 | Support | [facility] | [address] | | | | | CLINIC [address] | [place] | | | | | DR [address], | [address] | | | | | [place] [address] | | | | | | [phone] | | | +--------+ + + + [...] encounter Progress Notes Nidhi Liang RN - 05/20/2019 1:45 PM PDTPt came into office to correct date on her 827 form. Gave corrected paperwork to Mariela/Carmelo Lewis documented in this encounter Plan of Treatment +--------+ + + + + | Date | Type | Specialty | Care Team | Description | +--------+ + + + + | 02/18/ | Appointment | Rehabilitation | Erika Ernst, | | | 2019 | | | DO [address] | | | | | | [place] [address] | | | | | | [phone] | | | | | | | | | | | | Julia Fisher, | | | | | | PT | | +--------+ + + + + | 02/18/ | Appointment | Rehabilitation | Erika Ernst, | | | 2019 | | | DO [address] | | | | | | [place] [address] | | | | | | [phone] | | | | | | | | | | | | Genesis Ayon, OT | | +--------+ + + + + | 02/25/ | Office | Primary Care | Erika Ernst, | | | 2019 | Visit | | DO [address] | | | | | | [place] [address] | | | | | | [phone] | | | | | | | [...] | | | | | [place] [address] | | | | | | [phone] | | | | | | | | +--------+ + + + + | 02/27/ | Appointment | Radiology | Dhara, | | | 2019 | | | [address] | | | | | [address] [place], | | | | | | [place] [address] | | | | | | [phone] | | | | | | | | +--------+ + + + + | 03/04/ | Appointment | Rehabilitation | Genesis Ayon OT | | | 2019 | | | | | +--------+ + + + + | 03/09/ | Office | Orthopedic Surgery | Jeffrey Gandhi, | | | 2019 | Visit | | [place] [address] [facility] | | | | | | [place] [address] | | | | | | [phone] | | | | | | | [...] [place] | | | | | | [address] | | | | | | [phone] | | | | | | | [...] | | | | | [place] [address] | | | | | | [phone] | | | | | | | | | | | | Azul Yeboah, | | | | | | MD [address] | | | | | | [place] | | | | | | [place] [address] | | | | | | [phone] | | | | | | | [...] | | | | | | [place] [address] | | | | | | [phone] | | | | | | | | +--------+ + + + + documented as of this encounter Visit Diagnoses + + | Diagnosis | + + | Vertigo - Primary Dizziness and giddiness | + + documented in this encounter"
--- OUTSIDE RECORDS SUMMARY | ~2020-02-18 | XMS | Encounter Summary ---
Demographics + + + | Address | [address] | | | [place] [address] | + + + | Home Phone [...] Team Providers + +------+ + | Care Fretted String Instrument Repairer Name | Role | Phone | + +------+ + | Erika Ernst DO | PCP | | + +------+ + Reason for Visit + + + | Reason | Comments | + + + | Lab Results | WBC | + + + | Referral | | + + + Encounter Details +--------+ + + + + | Date | Type | Department | Care Team | Description | +--------+ + + + + | 02/20/ | Telephone | [facility] | Anastasia Alberto, | Lab Results (WBC); | | 2019 | | [facility] | [facility] [address] | Referral | | | | [facility] [address] | [place] [address] | | | | [address] [place], | [phone] | | | | | [place] [address] | | | | | | [phone] | | | +--------+ + + + [...] [address] | | | | | | [phone] | | | | | | | | | | | | Julia Fisher, | | | | | | PT | | +--------+ + + + + | 02/18/ | Appointment | Rehabilitation | Erika Ernst, | | | 2019 | | | DO [address] | | | | | | [place] [address] | | | | | | [phone] | | | | | | | | | | | | Genesis Ayon, OT | | +--------+ + + + + | 02/25/ | Office | Primary Care | Erika Ernst, | | | 2019 | Visit | | DO [address] | | | | | | [place] [address] | | | | | | [phone] | | | | | | | [...] | | | | | [place] [address] | | | | | | [phone] | | | | | | | | +--------+ + + + + | 02/27/ | Appointment | Radiology | Dhara, | | | 2019 | | | [address] | | | | | | [address]TH [facility], | | | | | | [place] [address] | | | | | | [phone] | | | | | | | | +--------+ + + + + | 03/04/ | Appointment | Rehabilitation | Genesis Ayon OT | | | 2019 | | | | | +--------+ + + + + | 03/09/ | Office | Orthopedic Surgery | Jeffrey Gandhi, | | | 2019 | Visit | | MD [address] [facility] | | | | | | [place] [address] | | | | | | [phone] | | | | | | | [...] [place] | | | | | | [address] | | | | | | [phone] | | | | | | | [...] | | | | | [place] [address] | | | | | | [phone] | | | | | | | | | | | | Azul Yeboah, | | | | | | MD [address] | | | | | | [place] | | | | | | [place] [address] | | | | | | [phone] | | | | | | | [...] | | | | | | [place] [address] | | | | | | [phone] | | | | | | | | +--------+ + + + + documented as of this encounter Visit Diagnoses Not on filedocumented in this encounter"
--- OUTSIDE RECORDS SUMMARY | ~2020-02-18 | XMS | Encounter Summary ---
Demographics + + + | Address | [address] | | | [place] [address] | + + + | Home Phone [...] Team Providers + +------+ + | Care Foam Gun Operator Name | Role | Phone | [...] | MRI Wrist | DR [address] | [address] | | | | | Right wo | [place], [place] | Phone: | | | | | Contrast | [address] | [phone] | | | | | | Phone: | Fax: | | | | | | [phone] | [phone] | | | | | | Fax: | | | | | | | [phone] | | +--------+--------+ + + + + [...] | MRI Wrist | DR P[place]RAZA | [address] | | | | | Right wo | [place], [place] | Phone: | | | | | Contrast | [address] | [phone] | | | | | | Phone: | Fax: | | | | | | [phone] | [phone] | | | | | | Fax: | | | | | | | [phone] | | +--------+--------+ + + + + [...] | | [place] | [place] [address] | | | | | [address] | [phone] | | | | | [phone] | | | +--------+ + + + [...] | 11/26/19 | | | (VITAMIN D3) 97971 | mouth Once a week | tablet [...] | | | | | [place] [address] | | | | | | [phone] | | | | | | | | | | | | Julia Fisher, | | | | | | PT | | +--------+ + + + + | 02/18/ | Appointment | Rehabilitation | Erika Ernst, | | | 2019 | | | DO [address] | | | | | | [place] [address] | | | | | | [phone] | | | | | | | | | | | | Genesis Ayon OT | | +--------+ + + + + | 02/25/ | Office | Primary Care | Erika Ernst, | | | 2019 | Visit | | DO [address] | | | | | | [place] [address] | | | | | | [phone] | | | | | | | [...] | | | | | [place] [address] | | | | | | [phone] | | | | | | | | +--------+ + + + + | 02/27/ | Appointment | Radiology | Dhara, | | | 2019 | | | [address] | | | | | | 4[address] [facility] [place], | | | | | | [place] [address] | | | | | | [phone] | | | | | | | [...] | | | | | [place] [address] | | | | | | [phone] | | | | | | | [...] [place] | | | | | | [address] | | | | | | [phone] | | | | | | | [...] | | | | | [place] [address] | | | | | | [phone] | | | | | | | | | | | | Azul Yeboah, | | | | | | MD [address] | | | | | | [place] | | | | | | [place] [address] | | | | | | [phone] | | | | | | | [...] | | | | | | [place] [address] | | | | | | [phone] | | | | | | | [...] + + | Yoni Grullon In - 01/28/2019 9:38 AM PDT EXAMINATION:MRI [...]
--- OUTSIDE RECORDS SUMMARY | ~2020-02-18 | XMS | Encounter Summary ---
Demographics + + + | Address | [address] | | | [place] [address] | + + + | Home Phone [...] Team Providers + +------+ + | Care Securities Analyst Name | Role | Phone | [...] [address] | | | | | [place] [address] | | | | | | [phone] | | | +--------+ + + + [...] | | | | | [place] [address] | | | | | | [phone] | | | | | | | | | | | | Julia Fisher, | | | | | | PT | | +--------+ + + + + | 02/18/ | Appointment | Rehabilitation | Erika Ernst, | | | 2019 | | | DO [address] | | | | | | [place] [address] | | | | | | [phone] | | | | | | | | | | | | Genesis Ayon OT | | +--------+ + + + + | 02/25/ | Office | Primary Care | Erika Ernst, | | | 2019 | Visit | | DO [address] | | | | | | [place] [address] | | | | | | [phone] | | | | | | | [...] | | | | | [place] [address] | | | | | | [phone] | | | | | | | | +--------+ + + + + | 02/27/ | Appointment | Radiology | Dhara, | | | 2019 | | | [address] | | | | | | [facility]TH [facility], | | | | | | [place] [address] | | | | | | [phone] | | | | | | | | +--------+ + + + + | 03/04/ | Appointment | Rehabilitation | Genesis Ayon OT | | | 2019 | | | | | +--------+ + + + + | 03/09/ | Office | Orthopedic Surgery | Jeffrey Gandhi, | | | 2019 | Visit | | [address] | | | | | | [place] [address] | | | | | | [phone] | | | | | | | [...] [place] | | | | | | [address] | | | | | | [phone] | | | | | | | [...] | | | | | [place] [address] | | | | | | [phone] | | | | | | | | | | | | Azul Yeboah, | | | | | | MD [address] | | | | | | [place] | | | | | | [place] [address] | | | | | | [phone] | | | | | | | [...] | | | | | | [place] [address] | | | | | | [phone] | | | | | | | | +--------+ + + + + documented as of this encounter Visit Diagnoses Not on filedocumented in this encounter"
--- OUTSIDE RECORDS SUMMARY | ~2020-02-18 | XMS | Encounter Summary ---
Demographics + + + | Address | [address] | | | [place] [address] | + + + | Home Phone [...] Providers + +------+ + | Care Purchasing And Claims Supervisor Name | Role | Phone | [...] | | | of left | [place] [address] | [place] [address] | | | | | ankle, | Phone: | Phone: | | | | | initial | [phone] | [phone] | | | | | encounter | Fax: | Fax: | | | | | Procedures | [phone] | [phone] | | | | | PT TREAT [...] [address] [place] | [place] [address] | encounter (Primary | | | | [place], [place] | [phone] | Dx); Fall on same | | | | [address] | | level from slipping, | | | | [phone] | Julia Castillo | subsequent | | [...] might be differen t from the original. [facility] [address] [place] [address] Physical Therapy Daily Treatment Note Date: 09/18/2018 [...] | | | | | [place] [address] | | | | | | [phone] | | | | | | | | | | | | Julia Fisher, | | | | | | PT | | +--------+ + + + + | 02/18/ | Appointment | Rehabilitation | Erika Ernst, | | | 2019 | | | DO [address] | | | | | | [place] [address] | | | | | | [phone] | | | | | | | | | | | | Genesis Ayon OT | | +--------+ + + + + | 02/25/ | Office | Primary Care | Erika Ernst, | | | 2019 | Visit | | DO [address] | | | | | | [place] [address] | | | | | | [phone] | | | | | | | [...] | | | | | [place] [address] | | | | | | [phone] | | | | | | | | +--------+ + + + + | 02/27/ | Appointment | Radiology | Dhara, | | | 2019 | | | [address] | | | | | | 4TH [facility], | | | | | | [place] [address] | | | | | | [phone] | | | | | | | [...] [place] | | | | | | [place] [address] | | | | | | [phone] | | | | | | | [...] [place] | | | | | | [address] | | | | | | [phone] | | | | | | | [...] | | | | | [place] [address] | | | | | | [phone] | | | | | | | | | | | | Azul Yeboah, | | | | | | MD [address] | | | | | | [place] | | | | | | [place] [address] | | | | | | [phone] | | | | | | | [...] | | | | | | [place] [address] | | | | | | [phone] | | | | | | | | +--------+ + + + + documented as of this encounter Visit Diagnoses + + | Diagnosis | + + | Sprain of left ankle, subsequent encounter - Primary | + + | Fall on same level from slipping, subsequent encounter | + + documented in this encounter"
--- OUTSIDE RECORDS SUMMARY | ~2020-02-18 | XMS | Encounter Summary ---
Demographics + + + | Address | [address] | | | [place] [address] | + + + | Home Phone [...] Team Providers + +------+ + | Care Touch Up Painter Name | Role | Phone | + +------+ + PCP | Unavailable | + +------+ + Encounter Details +--------+ + + + + | Date | Type | Department | Care Team | Description | +--------+ + + + + | 06/10/ | [facility] | Caro Zendjeas | | | 2013 | Encounter | [facility] | [place], ELEVATOR CONSTRUCTOR HELPER [address] | | | | | [facility] [address] | [place], [place] | | | | | 4TH [facility], | [address] | | | | | [place] [address] | [phone] | | | | | [phone] | | | +--------+ + + + [...] | | | | | [place] [address] | | | | | | [phone] | | | | | | | | | | | | Julia Fisher, | | | | | | PT | | +--------+ + + + + | 02/18/ | Appointment | Rehabilitation | Erika Ernst, | | | 2019 | | | DO [address] | | | | | | [place] [address] | | | | | | [phone] | | | | | | | | | | | | Genesis Ayon, OT | | +--------+ + + + + | 02/25/ | Office | Primary Care | Erika Ernst, | | | 2019 | Visit | | DO [address] | | | | | | [place] [address] | | | | | | [phone] | | | | | | | [...] | | | | | [place] [address] | | | | | | [phone] | | | | | | | | +--------+ + + + + | 02/27/ | Appointment | Radiology | Dhara, | | | 2019 | | | [address] | | | | | | 4[address] [facility], | | | | | | [place] [address] | | | | | | [phone] | | | | | | | | +--------+ + + + + | 03/04/ | Appointment | Rehabilitation | Genesis Ayon OT | | | 2019 | | | | | +--------+ + + + + | 03/09/ | Office | Orthopedic Surgery | Jeffrey Gandhi, | | | 2019 | Visit | | [address] | | | | | | [place] [address] | | | | | | [phone] | | | | | | | [...] [place] | | | | | | [address] | | | | | | [phone] | | | | | | | [...] | | | | | [place] [address] | | | | | | [phone] | | | | | | | | | | | | Azul Yeboah, | | | | | | MD [address] | | | | | | [place] | | | | | | [place] [address] | | | | | | [phone] | | | | | | | | +--------+ + + + + | 04/08/ | Appointment | Nutrition | Janel Webster | | | 2019 | | | [place], [place] | | +--------+ + + + + | 05/21/ | Office | Neurology | Dhara, | | | 2020 | Visit | | [address] | | | | | [address] [place], | | | | | | [place] [address] | | | | | | [phone] | | | | | | | | +--------+ + + + + documented as of this encounter Visit Diagnoses Not on filedocumented in this encounter"
--- OUTSIDE RECORDS SUMMARY | ~2020-02-18 | XMS | Encounter Summary ---
Demographics + + + | Address | [address] | | | [place] [address] | + + + | Home Phone [...] Team Providers + +------+ + | Care Award Machine Operator Name | Role | Phone [...] | CENTER [address] [place] | | | | | [place], [place] | [address] | | | | | [address] | | | | | | [phone] | | | +--------+ + + + [...] | | | | | [place] [address] | | | | | | [phone] | | | | | | | | | | | | Julia Fisher, | | | | | | PT | | +--------+ + + + + | 02/18/ | Appointment | Rehabilitation | Erika Ernst, | | | 2019 | | | DO [address] | | | | | | [place] [address] | | | | | | [phone] | | | | | | | | | | | | Genesis Ayon OT | | +--------+ + + + + | 02/25/ | Office | Primary Care | Erika Ernst, | | | 2019 | Visit | | DO [address] | | | | | | [place] [address] | | | | | | [phone] | | | | | | | [...] | | | | | | [place] [address] | | | | | | [phone] | | | | | | | | +--------+ + + + + | 02/27/ | Appointment | Radiology | Dhara, | | | 2019 | | | [address] | | | | | | 4TH [facility], | | | | | | [place] [address] | | | | | | [phone] | | | | | | | | +--------+ + + + + | 03/04/ | Appointment | Rehabilitation | Genesis Ayon OT | | | 2019 | | | | | +--------+ + + + + | 03/09/ | Office | Orthopedic Surgery | Jeffrey Gandhi, | | | 2019 | Visit | | [address] [facility] | | | | | | [place] [address] | | | | | | [phone] | | | | | | | [...] [place] | | | | | | [address] | | | | | | [phone] | | | | | | | [...] | | | | | [place] [address] | | | | | | [phone] | | | | | | | | | | | | Azul Yeboah, | | | | | | MD [address] | | | | | | [place] | | | | | | [place] [address] | | | | | | [phone] | | | | | | | [...] | | | | | | [place] [address] | | | | | | [phone] | | | | | | | | +--------+ + + + + documented as of this encounter Visit Diagnoses Not on filedocumented in this encounter"
--- OUTSIDE RECORDS SUMMARY | ~2020-02-18 | XMS | Encounter Summary ---
Demographics + + + | Address | [address] | | | [place] [address] | + + + | Home Phone [...] Team Providers + +------+ + | Care Molecular Spectroscopist Name | Role | Phone | + +------+ + PCP | Unavailable | + +------+ + Encounter Details +--------+ + + + + | Date | Type | Department | Care Team | Description | +--------+ + + + + | 01/24/ | [facility] | Cody Go | | | 2017 | Encounter | [facility] | [address] [place] | | | | | WALK[facility]IN CL[facility] [address] | [facility], [place] | | | | | [address] [facility], | [address] | | | | | [place] [address] | [phone] | | | | | [phone] | | | +--------+ + + + [...] | | | | | [place] [address] | | | | | | [phone] | | | | | | | | | | | | Julia Fisher, | | | | | | PT | | +--------+ + + + + | 02/18/ | Appointment | Rehabilitation | Erika Ernst, | | | 2019 | | | DO [address] | | | | | | [place] [address] | | | | | | [phone] | | | | | | | | | | | | Genesis Ayon OT | | +--------+ + + + + | 02/25/ | Office | Primary Care | Erika Ernst, | | | 2019 | Visit | | DO [address] [place] [address] | | | | | | [place] [address] | | | | | | [phone] | | | | | | | [...] | | | | | [place] [address] | | | | | | [phone] | | | | | | | | +--------+ + + + + | 02/27/ | Appointment | Radiology | Dhara, | | | 2019 | | | [address] | | | | | | [address] [place], | | | | | | [place] [address] | | | | | | [phone] | | | | | | | [...] | | | | | [place] [address] | | | | | | [phone] | | | | | | | [...] [place] | | | | | | [address] | | | | | | [phone] | | | | | | | [...] | | | | | [place] [address] | | | | | | [phone] | | | | | | | | | | | | Azul Yeboah, | | | | | | MD [address] | | | | | | [place] | | | | | | [place] [address] | | | | | | [phone] | | | | | | | [...] | | | | | | [place] [address] | | | | | | [phone] | | | | | | | | +--------+ + + + + documented as of this encounter Visit Diagnoses Not on filedocumented in this encounter"
--- OUTSIDE RECORDS SUMMARY | ~2020-02-18 | XMS | Encounter Summary ---
Demographics + + + | Address | [address] | | | [place] [address] | + + + | Home Phone [...] Team Providers + +------+ + | Care Pad Hand Name | Role | Phone | [...] [place] | | | | | | [address] | (Fax) | | | | | [phone] | | | +--------+ + + + [...] | | | | | [place] [address] | | | | | | [phone] | | | | | | | | | | | | Julia Fisher, | | | | | | PT | | +--------+ + + + + | 02/18/ | Appointment | Rehabilitation | Erika Ernst, | | | 2019 | | | DO [address] | | | | | | [place] [address] | | | | | | [phone] | | | | | | | | | | | | Genesis Ayon OT | | +--------+ + + + + | 02/25/ | Office | Primary Care | Erika Ernst, | | | 2019 | Visit | | DO [address] | | | | | | [place] [address] | | | | | | [phone] | | | | | | | [...] | | | | | [place] [address] | | | | | | [phone] | | | | | | | | +--------+ + + + + | 02/27/ | Appointment | Radiology | Dhara, | | | 2019 | | | [address] | | | | | | [address]TH [facility], | | | | | | [place] [address] | | | | | | [phone] | | | | | | | | +--------+ + + + + | 03/04/ | Appointment | Rehabilitation | Genesis Ayon OT | | | 2019 | | | | | +--------+ + + + + | 03/09/ | Office | Orthopedic Surgery | Jeffrey Gandhi, | | | 2019 | Visit | | [address] | | | | | | [place] [address] | | | | | | [phone] | | | | | | | [...] [place] | | | | | | [address] | | | | | | [phone] | | | | | | | [...] | | | | | [place] [address] | | | | | | [phone] | | | | | | | | | | | | Azul Yeboah, | | | | | | MD [address] | | | | | | [place] | | | | | | [place] [address] | | | | | | [phone] | | | | | | | [...] | | | | | | [place] [address] | | | | | | [phone] | | | | | | | | +--------+ + + + + documented as of this encounter Visit Diagnoses Not on filedocumented in this encounter"
--- OUTSIDE RECORDS SUMMARY | ~2020-02-18 | XMS | Encounter Summary ---
Demographics + + + | Address | [address] | | | [place] [address] | + + + | Home Phone [...] Providers + +------+ + | Care Snow Removal Supervisor Name | Role | Phone | [...] Refill | | 2018 | | [facility] | DO [address] | | | | | MEDICAL CL[facility] [address] | [place] [address] | | | | | [address] [place], | [phone] | | | | | [place] [address] | | | | | | [phone] | | | +--------+--------+ + + + [...] | | | | | [place] [address] | | | | | | [phone] | | | | | | | | | | | | Julia Fisher, | | | | | | PT | | +--------+ + + + + | 02/18/ | Appointment | Rehabilitation | Erika Ernst, | | | 2019 | | | DO [address] | | | | | | [place] [address] | | | | | | [phone] | | | | | | | | | | | | Genesis Ayon OT | | +--------+ + + + + | 02/25/ | Office | Primary Care | Erika Ernst, | | | 2019 | Visit | | DO [address] | | | | | | [place] [address] | | | | | | [phone] | | | | | | | [...] | | | | | [place] [address] | | | | | | [phone] | | | | | | | | +--------+ + + + + | 02/27/ | Appointment | Radiology | Dhara, | | | 2019 | | | DWA[address] | | | | | | [address] [facility], | | | | | | [place] [address] | | | | | | [phone] | | | | | | | [...] | | | | | [place] [address] | | | | | | [phone] | | | | | | | [...] [place] | | | | | | [address] | | | | | | [phone] | | | | | | | [...] | | | | | [place] [address] | | | | | | [phone] | | | | | | | | | | | | Azul Yeboah, | | | | | | MD [address] | | | | | | [place] [place] | | | | | | [place] [address] | | | | | | [phone] | | | | | | | [...] | | | | | | [place] [address] | | | | | | [phone] | | | | | | | | +--------+ + + + + documented as of this encounter Visit Diagnoses + + | Diagnosis | + + | Depression, unspecified depression type - Primary | + + documented in this encounter"
--- OUTSIDE RECORDS SUMMARY | ~2020-02-18 | XMS | Encounter Summary ---
Demographics + + + | Address | [address] | | | [place] [address] | + + + | Home Phone [...] Team Providers + +------+ + | [facility] Name | Role | Phone | [...] | [facility] | [place] [address] | she's to have done | | | | [address] [place], | [phone] | but mother just | | | | [place] [address] | | this am) | | | | [phone] | | | +--------+ + + + [...] | | | | | [place] [address] | | | | | | [phone] | | | | | | | | | | | | Julia Fisher, | | | | | | PT | | +--------+ + + + + | 02/18/ | Appointment | Rehabilitation | Erika Ernst, | | | 2019 | | | DO [address] | | | | | | [place] [address] | | | | | | [phone] | | | | | | | | | | | | [facility] | | +--------+ + + + + | 02/25/ | Office | Primary Care | rEika Ernst, | | | 2019 | Visit | | DO [address] | | | | | | [place] [address] | | | | | | [phone] | | | | | | | [...] | | | | | [place] [address] | | | | | | [phone] | | | | | | | | +--------+ + + + + | 02/27/ | Appointment | Radiology | Dhara, | | | 2019 | | | DWAINE Ross [address] | [address] [place], | | | | | | [place] [address] | | | | | | [phone] | | | | | | | | +--------+ + + + + | 03/04/ | Appointment | Rehabilitation | [facility] | | | 2019 | | | | | +--------+ + + + + | 03/09/ | Office | Orthopedic Surgery | Jeffrey Gandhi, | | | 2019 | Visit | | [place] [address] | | | | | | [place] [address] | | | | | | [phone] | | | | | | | [...] [place] | | | | | | [address] | | | | | | [phone] | | | | | | | [...] | | | | | [place] [address] | | | | | | [phone] | | | | | | | | | | | | Azul Yeboah, | | | | | | MD [address] | | | | | | [place] [address] [place] | | | | | | [place] [address] | | | | | | [phone] | | | | | | | [...] | | | | | | [place] [address] | | | | | | [phone] | | | | | | | | +--------+ + + + + documented as of this encounter Visit Diagnoses Not on filedocumented in this encounter"
--- OUTSIDE RECORDS SUMMARY | ~2020-02-18 | XMS | Encounter Summary ---
Demographics + + + | Address | [address] | | | [place] [address] | + + + | Home Phone [...] Team Providers + +------+ + | Care Ep Specialist Name | Role | Phone | [...] [facility] [place] [address] | | | | | [address] [facility], | [phone] | | | | | [place] [address] | | | | | | [phone] | | | +--------+ + + + [...] | | | | | [place] [address] | | | | | | [phone] | | | | | | | | | | | | Julia Fisher, | | | | | | PT | | +--------+ + + + + | 02/18/ | Appointment | Rehabilitation | Erika Ernst, | | | 2019 | | | DO [address] | | | | | | [place] [address] | | | | | | [phone] | | | | | | | | | | | | Genesis Ayon OT | | +--------+ + + + + | 02/25/ | Office | Primary Care | Erika Ernst, | | | 2019 | Visit | | DO [address] | | | | | | [place] [address] | | | | | | [phone] | | | | | | | [...] | | | | | [place] [address] | | | | | | [phone] | | | | | | | | +--------+ + + + + | 02/27/ | Appointment | Radiology | Dhara, | | | 2019 | | | [address] | | | | | | 4TH [facility], | | | | | | [place] [address] | | | | | | [phone] | | | | | | | | +--------+ + + + + | 03/04/ | Appointment | Rehabilitation | Genesis Ayon OT | | | 2019 | | | | | +--------+ + + + + | 03/09/ | Office | Orthopedic Surgery | Jeffrey Gandhi, | | 2019 | Visit | | [address] | | | | | | [place] [address] | | | | | | [phone] | | | | | | | [...] [place] | | | | | | [address] | | | | | | [phone] | | | | | | | [...] | | | | | [place] [address] | | | | | | [phone] | | | | | | | | | | | | Azul Yeboah, | | | | | | MD [address] | | | | | | [place] | | | | | | [place] [address] | | | | | | [phone] | | | | | | | [...] | | | | | | [place] [address] | | | | | | [phone] | | | | | | | | +--------+ + + + + documented as of this encounter Visit Diagnoses Not on filedocumented in this encounter"
--- OUTSIDE RECORDS SUMMARY | ~2020-02-18 | XMS | Encounter Summary ---
Demographics + + + | Address | [address] | | | [place] [address] | + + + | Home Phone [...] Team Providers + +------+ + | Care Whale Fisherman Name | Role | Phone | + +------+ + PCP | Unavailable | + +------+ + Encounter Details +--------+ + + + + | Date | Type | Department | Care Team | Description | +--------+ + + + + | 08/16/ | [facility] [place] [facility] | Denise Mcgregor | | | 2016 | Encounter | [facility] | G, ICE SKATING INSTRUCTOR | | | | | MEDICAL CLINIC [address] | | | | | | [facility] | | | | | | [place] [address] | | | | | | [phone] | | | +--------+ + + + [...] | | | | | [place] [address] | | | | | | [phone] | | | | | | | | | | | | Julia Fisher, | | | | | | PT | | +--------+ + + + + | 02/18/ | Appointment | Rehabilitation | Erika Ernst, | | 2019 | | | DO [address] | | | | | | [place] [address] | | | | | | [phone] | | | | | | | | | | | | Genesis Ayon, SUSAN | | +--------+ + + + + | 02/25/ | Office | Primary Care | Erika Ernst, | | | 2019 | Visit | | DO [address] [place] [address] | | | | | | [place] [address] | | | | | | [phone] | | | | | | | [...] | | | | | [place] [address] | | | | | | [phone] | | | | | | | | +--------+ + + + + | 02/27/ | Appointment | Radiology | Dhara, | | | 2019 | | | [address] | | | | | | [address] [place], | | | | | | [place] [address] | | | | | | [phone] | | | | | | | [...] | | | | | [place] [address] | | | | | | [phone] | | | | | | | [...] [place] | | | | | | [address] | | | | | | [phone] | | | | | | | [...] | | | | | [place] [address] | | | | | | [phone] | | | | | | | | | | | | Azul Yeboah, | | | | | | MD [address] | | | | | | [place] | | | | | | [place] [address] | | | | | | [phone] | | | | | | | [...] | | | | | | [place] [address] | | | | | | [phone] | | | | | | | | +--------+ + + + + documented as of this encounter Visit Diagnoses Not on filedocumented in this encounter"
--- OUTSIDE RECORDS SUMMARY | ~2020-02-18 | XMS | Encounter Summary ---
Demographics + + + | Address | [address] | | | [place] [address] | + + + | Home Phone [...] Team Providers + +------+ + | Care Activity Therapist Name | Role | Phone | + +------+ + | Erika Ernst DO | PCP | | + +------+ + Reason for Visit + + + | Reason | Comments | + + + | Ankle Injury | Left Ankle DOI 05/31/18 | + + + Evaluate & [...] | Surgery | Sprain of | Erika Salter DO | Orthopedic | | | Required | | calcaneofibu | [address] | [address] | | | | | lar ligament | [place], | [place] | | | | | of left | [place] [address] | [place], [place] | | | | | ankle, | Phone: | [phone] | | | | | subsequent | [phone] | Phone: | | | | | encounter | Fax: | [phone] | | | | | Procedures | [phone] | Fax: | | | | | [place] | | [phone] | +--------+ + + + + + Encounter Details +--------+---------+ + + + | Date | Type | Department | Care Team | Description | +--------+---------+ + + + | 11/16/ | Office | [place] [facility] | Abhi Grimes | Sprain of deltoid | | 2019 | Visit | [facility] | DO [address] | ligament of left | | | | [address] [place] | [address] [place] | ankle, subsequent | | | | [place], [place] | [place] [address] | encounter (Primary | | | | [address] | [phone] | Dx); Morbid obesity | | | | [phone] | | (HCC) | +--------+---------+ + + + Social [...] + + + | Blood Pressure | 115/65 | 11/16/2018 7:59 AM | | | | | PST | | + + + + + | Pulse | 85 | 11/16/2018 7:59 AM | | | | | PST | | + + + + + | Temperature | 35.6 C (96.1 F) | 11/16/2018 7:59 AM | | | | | PST | | + + + + + | Respiratory Rate | 18 | 11/16/2018 7:59 AM | | | | | PST | | + + + + + | Oxygen Saturation | 98% | 11/16/2018 7:59 AM | | | | | PST | | + + + + + | Inhaled Oxygen | - | - | | | Concentration | | | | + + + + + | Weight | 168.7 kg (372 lb) | 11/16/2018 7:59 AM | | | | | PST | | + + + + + | Height | 177.8 cm (5' 10") | 11/16/2018 7:59 AM | | | | | PST | | + + + + + | Body Mass Index | 53.38 | 11/16/2018 7:59 AM | | | | | PST | | + + + + + documented in this encounter Progress Abhi Ascencio DO - 11/16/2018 8:00 AM PSTFormatting of this note might be differe nt from the original. Orthopedic Clinic Note Patient Name: Andrea Suh | Age: 28 y.o. | : 1990 | 369 | Author: ABHI GRIMES DO | Date of Encounter: 11/16/2018 Chief complaint Chief Complaint Patient presents with Ankle Injury Left Ankle DOI 05/31/18 Date of injury History of Present Illness Andrea Suh is a 28 y.o. female here for a workman's comp follow-up of her left ankle foll owing a sprain back in May. She states that she is been going to therapy consistently fo r approximately 4 months, but she is still having pain. She states the pain on the outside of her ankle has completely resolved but is still having complaints on the medial side of he r ankle. An MRI was ordered. She states that she is taking significant amounts of anti-inf lammatories and is nearly maxing out on them. Patient denies any fevers, chills, or night s weats. Patient denies any redness, erythema, or warmth. Patient denies any recent or new t rauma. Patient denies any numbness or tingling. Review of Pertinent Systems All other ROS negative aside from what is noted in HPI. Medications Current Outpatient Prescriptions on File Prior [...] 15 mg tablet BID 60 tablet 3 diphenhydrAMINE (BENADRYL) 25 MG capsule Take [...] allergen; and Adhesive & tape Vitals BP 115/65 | Pulse 85 | Resp 18 Temp 35.6 C (96.1 F) | Wt (!) 168.7 kg (372 lb) | BMI B hu mass index is 53.38 kg/m. Imaging/Labs/Special Study Results Visit problem associated images and findings reviewed by me today with the patient include: No results found. Physical Exam and Radiographic Results Left ankle: Patient has no tenderness to palpation over the lateral aspect of the ankle, sh e has a negative drawer test, she has tenderness to palpation over the deltoid ligament. Sh e is neurovascularly intact distally, she has full range of motion. MRI: MRI of the left ankle shows some subcutaneous edema within age indeterminant sprain of the deltoid ligament present Assessment Andrea was seen today for ankle injury. Diagnoses and all orders for this visit: Sprain of deltoid ligament of left ankle, subsequent encounter Morbid obesity (HCC) Discussion/Procedures Advised patient that overall her MRI was relatively normal. There was a sprain of the delt oid ligament present which could explain some of her symptoms, however I did not feel that t his warranted surgery, although I will send her to our bull driver Dr. Mittal for a second opin ion if she feels as though this is something that could be managed surgically. At this poin t I have no restrictions on her, and feel that she could return to work as tolerated. I shirley l defer back to her PCP for workplace restrictions as that is who is managing this for the brittny martinez's comp claim. We discussed additional therapy including pool therapy which she has a lso tried. She can continue with her anti-inflammatories as needed We did discuss that her obesity is a factor, and that losing weight would likely significantly help her ankle pain a s well. Patient can follow-up with me on an as-needed basis. Follow-up Return if symptoms worsen or fail [...] ligament of left ankle Painful menstrual periods Sprain of left ankle, subsequent encounter Radial styloid tenosynovitis Right wrist pain Chronic pain of both ears Chronic congestion of paranasal sinus Insomnia due to other mental disorder Past Medical History: Diagnosis Date Allergic rhinitis Anemia Asthma Dysmenorrhea Hypertension Hypothyroid Iron deficiency Obesity ALVAREZ (obstructive sleep apnea) TMJ pain dysfunction syndrome Past Surgical History: Procedure Laterality Date EYE SURGERY RIGHT KIDNER PROCEDURE 01/20/2016 Surgeon: Fani Mahajan MD; Location: [facility] TENDON RELEASE TONSILLECTOMY WISDOM TOOTH EXTRACTION Family History Problem Relation Age of Onset Other (see comment) Mother gallbladder disease Hypertension Father Other (see comment) Father lilibeth Breast cancer Sister Cervical cancer Maternal Grandmother Heart attack Maternal Aunt [place] Social History Social History Marital status: Single [...] and their vital signs recorded by my social worker assistant today, a s found in this chart note. Electronically signed by: Abhi Grimes DO 11/16/2018 at 8:24 Note: Part of this report was transcribed using voice recognition software. Every effort wa s made to ensure accuracy. However, inadvertent computerized director of training errors may be pre sent. CC: Erika [...] | | | | | [place] [address] | | | | | | [phone] | | | | | | | | | | | | Julia Fisher, | | | | | | PT | | +--------+ + + + + | 02/18/ | Appointment | Rehabilitation | Erika Ernst, | | | 2019 | | | DO [address] | | | | | | [place] [address] | | | | | | [phone] | | | | | | | | | | | | Genesis Ayon OT | | +--------+ + + + + | 02/25/ | Office | Primary Care | Erika Ernst, | | | 2019 | Visit | | DO [address] [place] | | | | | | [place] [address] | | | | | | [phone] | | | | | | | [...] | | | | | [place] [address] | | | | | | [phone] | | | | | | | | +--------+ + + + + | 02/27/ | Appointment | Radiology | Dhara, | | | 2019 | | | [address] | | | | | | [address] [facility], | | | | | | [place] [address] | | | | | | [phone] | | | | | | | [...] [place] | | | | | | [place] [address] | | | | | | [phone] | | | | | | | [...] [place] | | | | | | [address] | | | | | | [phone] | | | | | | | [...] | | | | | [place] [address] | | | | | | [phone] | | | | | | | | | | | | Azul Yeboah, | | | | | | MD [address] | | | | | | [place] | | | | | | [place] [address] | | | | | | [phone] | | | | | | | [...] | | | | | [address] [place], | | | | | | [place] [address] | | | | | | [phone] | | | | | | | [...] Sprain of deltoid ligament of left ankle, subsequent encounter - Primary | + + | Morbid obesity (HCC) Morbid obesity | + + documented in this encounter
--- OUTSIDE RECORDS SUMMARY | ~2020-02-18 | XMS | Encounter Summary ---
Demographics + + + | Address | [address] | | | [place] [address] | + + + | Home Phone [...] Providers + +------+ + | Care Sales Marketing Name | Role | Phone | [...] Refill | | 2020 | | [facility] | DO [address] | | | | | MEDICAL CLINIC [address] | [place] [address] | | | | | [address] [place], | [phone] | | | | | [place] [address] | | | | | | [phone] | | | +--------+--------+ + + + [...] | | | | | [place] [address] | | | | | | [phone] | | | | | | | | | | | | Julia Fisher, | | | | | | PT | | +--------+ + + + + | 02/18/ | Appointment | Rehabilitation | Erika Ernst, | | | 2019 | | | DO [address] [place] | | | | | | [place] [address] | | | | | | [phone] | | | | | | | | | | | | Genesis Ayon OT | | +--------+ + + + + | 02/25/ | Office | Primary Care | Erika Ernst, | | | 2019 | Visit | | DO [address] [place] | | | | | | [place] [address] | | | | | | [phone] | | | | | | | [...] | | | | | [place] [address] | | | | | | [phone] | | | | | | | | +--------+ + + + + | 02/27/ | Appointment | Radiology | Dhara, | | | 2019 | | | [address] | | | | | | [address] [place], | | | | | | [place] [address] | | | | | | [phone] | | | | | | | [...] [place] | | | | | | [place] [address] | | | | | | [phone] | | | | | | | [...] [place] | | | | | | [address] | | | | | | [phone] | | | | | | | [...] | | | | | [place] [address] | | | | | | [phone] | | | | | | | | | | | | Azul Yeboah, | | | | | | MD [address] | | | | | | [place] | | | | | | [place] [address] | | | | | | [phone] | | | | | | | [...] | | | | | | [place] [address] | | | | | | [phone] | | | | | | | | +--------+ + + + + documented as of this encounter Visit Diagnoses Not on filedocumented in this encounter"
--- OUTSIDE RECORDS SUMMARY | ~2020-02-18 | XMS | Encounter Summary ---
Demographics + + + | Address | [address] | | | [place] [address] | + + + | Home Phone [...] Team Providers + +------+ + | Care Bead Flipper Name | Role | Phone | + [...] | Injections | | 2019 | | [facility] | [address] | (information re: | | | | MEDICAL CLINIC [address] | [facility] [place] [address] | shingles injection); | | | | [address] [facility], | [phone] | Injections | | | | [place] [address] | | | | | | [phone] | | | +--------+ + + + [...] | | | | | [place] [address] | | | | | | [phone] | | | | | | | | | | | | Julia Fisher, | | | | | | PT | | +--------+ + + + + | 02/18/ | Appointment | Rehabilitation | Erika Ernst, | | | 2019 | | | DO [address] [place] | | | | | | [place] [address] | | | | | | [phone] | | | | | | | | | | | | Genesis Ayon, OT | | +--------+ + + + + | 02/25/ | Office | Primary Care | Erika Ernst, | | | 2019 | Visit | | DO [address] | | | | | | [place] [address] | | | | | | [phone] | | | | | | | [...] | | | | | [place] [address] | | | | | | [phone] | | | | | | | | +--------+ + + + + | 02/27/ | Appointment | Radiology | Dhara | | | 2019 | | | [address] | | | | | | [address] [place], | | | | | | [place] [address] | | | | | | [phone] | | | | | | | | +--------+ + + + + | 03/04/ | Appointment | Rehabilitation | Genesis Ayon OT | | | 2019 | | | | | +--------+ + + + + | 03/09/ | Office | Orthopedic Surgery | Jeffrey Gandhi, | | | 2019 | Visit | | [address] [facility] | | | | | | [place] [address] | | | | | | [phone] | | | | | | | [...] [place] | | | | | | [address] | | | | | | [phone] | | | | | | | [...] | | | | | [place] [address] | | | | | | [phone] | | | | | | | | | | | | Azul Yeboah, | | | | | | MD [address] | | | | | | [place] | | | | | | [place] [address] | | | | | | [phone] | | | | | | | [...] | | | | | | [place] [address] | | | | | | [phone] | | | | | | | | +--------+ + + + + documented as of this encounter Visit Diagnoses Not on filedocumented in this encounter"
--- OUTSIDE RECORDS SUMMARY | ~2020-02-18 | XMS | Encounter Summary ---
Demographics + + + | Address | [address] | | | [place] [address] | + + + | Home Phone [...] Team Providers + +------+ + | Care Fountain Clerk Name | Role | Phone | [...] | DR [place], [place] | [place] [address] | (Primary Dx); Acute | | | | [address] | [phone] | nonintractable | | | | [phone] | | headache, | | | | [...] | | | | | [place] [address] | | | | | | [phone] | | | | | | | | | | | | Julia Fisher, | | | | | | PT | | +--------+ + + + + | 02/18/ | Appointment | Rehabilitation | Erika Ernst, | | | 2019 | | | DO [address] [place] | | | | | | [place] [address] | | | | | | [phone] | | | | | | | | | | | | Genesis Ayon OT | | +--------+ + + + + | 02/25/ | Office | Primary Care | Erika Ernst, | | | 2019 | Visit | | [address] [place] [address] | | | | | | [place] [address] | | | | | | [phone] | | | | | | | [...] | | | | | [place] [address] | | | | | | [phone] | | | | | | | | +--------+ + + + + | 02/27/ | Appointment | Radiology | Dhara, | | | 2019 | | | [address] | | | | | | [address] [place], | | | | | | [place] [address] | | | | | | [phone] | | | | | | | | +--------+ + + + + | 03/04/ | Appointment | Rehabilitation | Genesis Ayon OT | | | 2019 | | | | | +--------+ + + + + | 03/09/ | Office | Orthopedic Surgery | Jfefrey Gandhi, | | | 2019 | Visit | | [address] | | | | | | [place] [address] | | | | | | [phone] | | | | | | | [...] [place] | | | | | | [address] | | | | | | [phone] | | | | | | | [...] | | | | | [place] [address] | | | | | | [phone] | | | | | | | | | | | | Azul Yeboah, | | | | | | [address] | | | | | | [place] | | | | | | [place] [address] | | | | | | [phone] | | | | | | | [...] | | | | | | [place] [address] | | | | | | [phone] | | | | | | | [...]
--- OUTSIDE RECORDS SUMMARY | ~2020-02-18 | XMS | Encounter Summary ---
Demographics + + + | Address | [address] | | | [place] [address] | + + + | Home Phone [...] Team Providers + +------+ + | Care Aerophysics Engineer Name | Role | Phone | [...] Appointment Question | | 2020 | | [facility] | DO [address] | (Pt request call | | | | MEDICAL CLINIC [address] | [place] [address] | today re: nausea, | | | | [address] [place], | [phone] | room spinning, | | | | [place] [address] | | migraine ect) | | | | [phone] | | | +--------+ + + + [...] | | | | | [place] [address] | | | | | | [phone] | | | | | | | | | | | | Julia Fisher, | | | | | | PT | | +--------+ + + + + | 02/18/ | Appointment | Rehabilitation | Erika Ernst, | | | 2019 | | | DO [address] [place] | | | | | | [place] [address] | | | | | | [phone] | | | | | | | | | | | | Genesis Ayon OT | | +--------+ + + + + | 02/25/ | Office | Primary Care | Erika Ernst, | | | 2019 | Visit | | DO [address] [place] | | | | | | [place] [address] | | | | | | [phone] | | | | | | | [...] | | | | | [place] [address] | | | | | | [phone] | | | | | | | | +--------+ + + + + | 02/27/ | Appointment | Radiology | Dhara, | | 2019 | | | [address] | | | | | | [address] [place], | | | | | | [place] [address] | | | | | | [phone] | | | | | | | [...] | | | | | | [place] [address] | | | | | | [phone] | | | | | | | [...] [place] | | | | | | [address] | | | | | | [phone] | | | | | | | [...] | | | | | [place] [address] | | | | | | [phone] | | | | | | | | | | | | Azul Yeboah, | | | | | | MD [address] | | | | | | [place] | | | | | | [place] [address] | | | | | | [phone] | | | | | | | [...] | | | | | | [place] [address] | | | | | | [phone] | | | | | | | | +--------+ + + + + documented as of this encounter Visit Diagnoses Not on filedocumented in this encounter"
--- OUTSIDE RECORDS SUMMARY | ~2020-02-18 | XMS | Encounter Summary ---
Demographics + + + | Address | [address] | | | [place] [address] | + + + | Home Phone [...] Providers + +------+ + | Care Pharmacy Salesperson Name | Role | Phone | [...] Imaging | | 2019 | | [facility] | DO [address] | | | | | MEDICAL CLINIC [address] | [place] [address] | | | | | [address] [place], | [phone] | | | | | [place] [address] | | | | | | [phone] | | | +--------+ + + + [...] | | | | | [place] [address] | | | | | | [phone] | | | | | | | | | | | | Julia Fisher, | | | | | | PT | | +--------+ + + + + | 02/18/ | Appointment | Rehabilitation | Erika Ernst, | | | 2019 | | | DO [address] [place] | | | | | | [place] [address] | | | | | | [phone] | | | | | | | | | | | | Genesis Ayon OT | | +--------+ + + + + | 02/25/ | Office | Primary Care | Erika Ernst, | | | 2019 | Visit | | DO [address] [place] | | | | | | [place] [address] | | | | | | [phone] | | | | | | | [...] | | | | | [place] [address] | | | | | | [phone] | | | | | | | | +--------+ + + + + | 02/27/ | Appointment | Radiology | Dhara, | | | 2019 | | | [address] | | | | | | [address] [place], | | | | | | [place] [address] | | | | | | [phone] | | | | | | | [...] [place] | | | | | | [place] [address] | | | | | | [phone] | | | | | | | [...] [place] | | | | | | [address] | | | | | | [phone] | | | | | | | [...] | | | | | [place] [address] | | | | | | [phone] | | | | | | | | | | | | Azul Yeboah, | | | | | | MD [address] | | | | | | [place] | | | | | | [place] [address] | | | | | | [phone] | | | | | | | [...] | | | | | | [place] [address] | | | | | | [phone] | | | | | | | | +--------+ + + + + documented as of this encounter Visit Diagnoses Not on filedocumented in this encounter"
--- OUTSIDE RECORDS SUMMARY | ~2020-02-18 | XMS | Encounter Summary ---
Demographics + + + | Address | [address] | | | [place] [address] | + + + | Home Phone [...] Team Providers + +------+ + | Care Debt And Budget Counselor Name | Role | Phone | + +------+ + PCP | Unavailable | + +------+ + Encounter Details +--------+ + + + + | Date | Type | Department | Care Team | Description | +--------+ + + + + | 10/28/ | [facility] | Caro Zendejas | | | 2013 | Encounter | [facility] | [place], CHIEF NURSING EXECUTIVE [address] | | | | | MEDICAL CLINIC [address] | [facility], [place] | | | | | [address] [facility], | [address] | | | | | [place] [address] | [phone] | | | | | [phone] | | | +--------+ + + + [...] | | | | | [place] [address] | | | | | | [phone] | | | | | | | | | | | | Julia Fisher, | | | | | | PT | | +--------+ + + + + | 02/18/ | Appointment | Rehabilitation | Erika Ernst, | | | 2019 | | | DO [address] [place] | | | | | | [place] [address] | | | | | | [phone] | | | | | | | | | | | | Genesis Ayon, OT | | +--------+ + + + + | 02/25/ | Office | Primary Care | Erika Ernst, | | | 2019 | Visit | | DO [address] | | | | | | [place] [address] | | | | | | [phone] | | | | | | | [...] | | | | | [place] [address] | | | | | | [phone] | | | | | | | | +--------+ + + + + | 02/27/ | Appointment | Radiology | Dhara, | | | 2019 | | | [address]WA[address] | | | | | | [address] [facility], | | | | | | [place] [address] | | | | | | [phone] | | | | | | | | +--------+ + + + + | 03/04/ | Appointment | Rehabilitation | Genesis Ayon OT | | | 2019 | | | | | +--------+ + + + + | 03/09/ | Office | Orthopedic Surgery | Jeffrey Gandhi, | | | 2019 | Visit | | [address] | | | | | | [place] [address] | | | | | | [phone] | | | | | | | [...] [place] | | | | | | [address] | | | | | | [phone] | | | | | | | [...] | | | | | [place] [address] | | | | | | [phone] | | | | | | | | | | | | Azul Yeboah, | | | | | | MD [address] | | | | | | [address] [place] | | | | | | [place] [address] | | | | | | [phone] | | | | | | | [...] | | | | | | [place] [address] | | | | | | [phone] | | | | | | | | +--------+ + + + + documented as of this encounter Visit Diagnoses Not on filedocumented in this encounter"
--- OUTSIDE RECORDS SUMMARY | ~2020-02-18 | XMS | Encounter Summary ---
Demographics + + + | Address | [address] | | | [place] [address] | + + + | Home Phone [...] + +------+ + | Care Automotive Service Writer Name | Role | Phone | [...] + + | 10/23/ | Telephone | [facility] | Jeffrey Gandhi, | Other | | 2020 | | [facility]TH[facility]TS | MD [address] | | | | | MEDICINE [place] | [place] [address] | | | | | [address] | [phone] | | | | | [place], [place] | | | | | | [address] | | | | | | [phone] | | | +--------+ + + + [...] | | | | | [place] [address] | | | | | | [phone] | | | | | | | | | | | | Julia Fisher, | | | | | | PT | | +--------+ + + + + | 02/18/ | Appointment | Rehabilitation | Erika Ernst, | | | 2019 | | | DO [address] [place] | | | | | | [place] [address] | | | | | | [phone] | | | | | | | | | | | | Genesis Ayon OT | | +--------+ + + + + | 02/25/ | Office | Primary Care | Erika Ernst, | | | 2019 | Visit | | DO [address] [place] | | | | | | [place] [address] | | | | | | [phone] | | | | | | | [...] | | | | | [place] [address] | | | | | | [phone] | | | | | | | | +--------+ + + + + | 02/27/ | Appointment | Radiology | Dhara, | | | 2019 | | | [address] | | | | | | [address]TH [facility], | | | | | | [place] [address] | | | | | | [phone] | | | | | | | | +--------+ + + + + | 03/04/ | Appointment | Rehabilitation | Genesis Ayon OT | | | 2019 | | | | | +--------+ + + + + | 03/09/ | Office | Orthopedic Surgery | Jeffrey Gandhi, | | | 2019 | Visit | | MD [address] [facility] | | | | | | [place] [address] | | | | | | [phone] | | | | | | | [...] [place] | | | | | | [address] | | | | | | [phone] | | | | | | | [...] [address] | | | | | | [phone] | | | | | | | | | | | | Azul Yeboah, | | | | | | MD [address] | | | | | | [place] | | | | | | [place] [address] | | | | | | [phone] | | | | | | | [...] | | | | | | [place] [address] | | | | | | [phone] | | | | | | | | +--------+ + + + + documented as of this encounter Visit Diagnoses Not on filedocumented in this encounter"
--- OUTSIDE RECORDS SUMMARY | ~2020-02-18 | XMS | Encounter Summary ---
Demographics + + + | Address | [address] | | | [place] [address] | + + + | Home Phone [...] Providers + +------+ + | Care Operations Research Manager Name | Role | Phone | [...] | | | of left | [place] [address] | [place] [address] | | | | | ankle, | Phone: | Phone: | | | | | initial | [phone] | [phone] | | | | | encounter | Fax: | Fax: | | | | | Procedures | [phone] | [phone] | | | | | PT TREAT [...] [address] | [place] [address] | encounter (Primary | | | | [place], [place] | [phone] | Dx) | | | | [address] | | | | | | [phone] | Nick Barrios I, PT | | [...] might be different fro m the original. [facility] THER[facility] PT [address] [place] [address] Physical Therapy Daily Treatment Note Date: 10/05/2018 Patient Information Patient Name: Andrea Suh Date [...] in favor of SL heel raise with CONCESSIONS MANAGER. ONGOING: SLS on even surfac e 3x30 [...] | | | | | [place] [address] | | | | | | [phone] | | | | | | | | | | | | Julia Fisher, | | | | | | PT | | +--------+ + + + + | 02/18/ | Appointment | Rehabilitation | Erika Ernst, | | | 2019 | | | DO [address] [place] | | | | | | [place] [address] | | | | | | [phone] | | | | | | | | | | | | Genesis Ayon OT | | +--------+ + + + + | 02/25/ | Office | Primary Care | Erika Ernst, | | | 2019 | Visit | | DO [address] [place] [address] | | | | | | [place] [address] | | | | | | [phone] | | | | | | | [...] | | | | | [place] [address] | | | | | | [phone] | | | | | | | | +--------+ + + + + | 02/27/ | Appointment | Radiology | Dhara, | | 2019 | | | [address]INE [address] | | | | | | [address] [place], | | | | | | [place] [address] | | | | | | [phone] | | | | | | | [...] | | | | | | [place] [address] | | | | | | [phone] | | | | | | | [...] [place] | | | | | | [address] | | | | | | [phone] | | | | | | | [...] | | | | | [place] [address] | | | | | | [phone] | | | | | | | | | | | | Azul Yeboah, | | | | | | MD [address] | | | | | | [place] | | | | | | [place] [address] | | | | | | [phone] | | | | | | | [...] | | | | | | [place] [address] | | | | | | [phone] | | | | | | | | +--------+ + + + + documented as of this encounter Visit Diagnoses + + | Diagnosis | + + | Sprain of left ankle, subsequent encounter - Primary | + + documented in this encounter
--- OUTSIDE RECORDS SUMMARY | ~2020-02-18 | XMS | Encounter Summary ---
Demographics + + + | Address | [address] | | | [place] [address] | + + + | Home Phone [...] Team Providers + +------+ + | Care Drag Car Racer Name | Role | Phone | + +------+ + PCP | Unavailable | + +------+ + Encounter Details +--------+ + + + + | Date | Type | Department | Care Team | Description | +--------+ + + + + | 05/14/ | [facility] | Caro Zendejas | | | 2013 | Encounter | [facility] | Vale, KILN SETTER [address] | | | | | MEDICAL CL[facility] [address] | [facility], [place] | | | | | 4TH [facility], | [address] | | | | | [place] [address] | [phone] | | | | | [phone] | | | +--------+ + + + [...] | | | | | [place] [address] | | | | | | [phone] | | | | | | | | | | | | Julia Fisher, | | | | | | PT | | +--------+ + + + + | 02/18/ | Appointment | Rehabilitation | Erika Ernst, | | | 2019 | | | DO [address] [place] | | | | | | [place] [address] | | | | | | [phone] | | | | | | | | | | | | Genesis Ayon, OT | | +--------+ + + + + | 02/25/ | Office | Primary Care | Erika Ernst, | | | 2019 | Visit | | DO [address] [place] | | | | | | [place] [address] | | | | | | [phone] | | | | | | | [...] | | | | | [place] [address] | | | | | | [phone] | | | | | | | | +--------+ + + + + | 02/27/ | Appointment | Radiology | Dhara, | | | 2019 | | | [address] | | | | | | 4TH [facility], | | | | | | [place] [address] | | | | | | [phone] | | | | | | | | +--------+ + + + + | 03/04/ | Appointment | Rehabilitation | Genesis Ayon OT | | | 2019 | | | | | +--------+ + + + + | 03/09/ | Office | Orthopedic Surgery | Jeffrey Gandhi, | | | 2019 | Visit | | [address] | | | | | | [place] [address] | | | | | | [phone] | | | | | | | [...] [place] | | | | | | [address] | | | | | | [phone] | | | | | | | [...] | | | | | [place] [address] | | | | | | [phone] | | | | | | | | | | | | Azul Yeboah, | | | | | | MD [address] | | | | | | [place] | | | | | | [place] [address] | | | | | | [phone] | | | | | | | [...] | | | | | | [place] [address] | | | | | | [phone] | | | | | | | | +--------+ + + + + documented as of this encounter Visit Diagnoses Not on filedocumented in this encounter"
--- OUTSIDE RECORDS SUMMARY | ~2020-02-18 | XMS | Encounter Summary ---
Demographics + + + | Address | [address] | | | [place] [address] | + + + | Home Phone [...] Providers + +------+ + | Care Production Machine Operator Name | Role | Phone | + +------+ + PCP | Unavailable | + +------+ + Encounter Details +--------+ + + + + | Date | Type | Department | Care Team | Description | +--------+ + + + + | 09/18/ | Hospital | [place] [facility] | Travis Malone FNP | | | 2013 | Encounter | [facility] | [address] [place] | | | | | [address] [place] | [place], [place] | | | | | [place], [place] | [address] | | | | | [address] | [phone] | | | | | [phone] | | | +--------+ + + + [...] | | | | | [place] [address] | | | | | | [phone] | | | | | | | | | | | | Julia Fisher, | | | | | | PT | | +--------+ + + + + | 02/18/ | Appointment | Rehabilitation | Erika Ernst, | | | 2019 | | | DO [address] [place] | | | | | | [place] [address] | | | | | | [phone] | | | | | | | | | | | | Genesis Ayon, OT | | +--------+ + + + + | 02/25/ | Office | Primary Care | Erika Ernst, | | | 2019 | Visit | | DO [address] [place] | | | | | | [place] [address] | | | | | | [phone] | | | | | | | [...] | | | | | [place] [address] | | | | | | [phone] | | | | | | | | +--------+ + + + + | 02/27/ | Appointment | Radiology | Dhara, | | | 2019 | | | [address] | | | | | | 4TH [facility], | | | | | | [place] [address] | | | | | | [phone] | | | | | | | | +--------+ + + + + | 03/04/ | Appointment | Rehabilitation | Genesis Ayon OT | | | 2019 | | | | | +--------+ + + + + | 03/09/ | Office | Orthopedic Surgery | Jeffrey Gandhi, | | | 2019 | Visit | | [address] | | | | | | [place] [address] | | | | | | [phone] | | | | | | | [...] [place] | | | | | | [address] | | | | | | [phone] | | | | | | | [...] | | | | | [place] [address] | | | | | | [phone] | | | | | | | | | | | | Azul Yeboah, | | | | | | MD [address] | | | | | | [place] | | | | | | [place] [address] | | | | | | [phone] | | | | | | | [...] | | | | | | [place] [address] | | | | | | [phone] | | | | | | | | +--------+ + + + + documented as of this encounter Visit Diagnoses Not on filedocumented in this encounter"
--- OUTSIDE RECORDS SUMMARY | ~2020-02-18 | XMS | Encounter Summary ---
Demographics + + + | Address | [address] | | | [place] [address] | + + + | Home Phone [...] Team Providers + +------+ + | Care Curb Attendant Name | Role | Phone | [...] | | | of left | [place] [address] | [place] [address] | | | | | ankle, | Phone: | Phone: | | | | | initial | [phone] | [phone] | | | | | encounter | Fax: | Fax: | | | | | Procedures | [phone] | [phone] | | | | | PT TREAT [...] [address] [place] | [place] [address] | encounter (Primary | | | | [place], [place] | [phone] | Dx); Fall on same | | | | [address] | | level from slipping, | | | | [phone] | Julia Castillo | subsequent | | [...] be differen t from the original. [facility] THERAPY PT [address] [place] [address] Physical Therapy Daily Treatment Note Date: 09/11/2018 [...] | | | | | [place] [address] | | | | | | [phone] | | | | | | | | | | | | Julia Fisher, | | | | | | PT | | +--------+ + + + + | 02/18/ | Appointment | Rehabilitation | Erika Ernst, | | | 2019 | | | DO [address] | | | | | | [place] [address] | | | | | | [phone] | | | | | | | | | | | | Genesis Ayon OT | | +--------+ + + + + | 02/25/ | Office | Primary Care | Erika Ernst, | | | 2019 | Visit | | DO [address] | | | | | | [place] [address] | | | | | | [phone] | | | | | | | [...] | | | | | [place] [address] | | | | | | [phone] | | | | | | | | +--------+ + + + + | 02/27/ | Appointment | Radiology | Dhara, | | | 2019 | | | [address] | | | | | | 4TH [facility], | | | | | | [place] [address] | | | | | | [phone] | | | | | | | [...] [place] | | | | | | [place] [address] | | | | | | [phone] | | | | | | | [...] [place] | | | | | | [address] | | | | | | [phone] | | | | | | | [...] | | | | | [place] [address] | | | | | | [phone] | | | | | | | | | | | | Azul Yeboah, | | | | | | MD [address] | | | | | | [place] | | | | | | [place] [address] | | | | | | [phone] | | | | | | | [...] | | | | | | [place] [address] | | | | | | [phone] | | | | | | | | +--------+ + + + + documented as of this encounter Visit Diagnoses + + | Diagnosis | + + | Sprain of left ankle, subsequent encounter - Primary | + + | Fall on same level from slipping, subsequent encounter | + + documented in this encounter"
--- OUTSIDE RECORDS SUMMARY | ~2020-02-18 | XMS | Encounter Summary ---
Demographics + + + | Address | [address] | | | [place] [address] | + + + | Home Phone [...] Providers + +------+ + | Care Edge Runner Name | Role | Phone | [...] Results | | 2018 | | [facility] | MUSICAL INSTRUMENT MECHANIC | | | | | MEDICAL CLINIC [address] | | | | | | [address] [facility] [place], | | | | | | [place] [address] | | | | | | [phone] | | | +--------+ + + + [...] | | 2019 | | | DO [facility] | | | | | | [place] [address] | | | | | | [phone] | | | | | | | | | | | | Julia Fisher, | | | | | | PT | | +--------+ + + + + | 05/20/ | Appointment | Rehabilitation | Erika Ernst, | | | 2019 | | | DO [address] | | | | | | [place] [address] | | | | | | [phone] | | | | | | | | | | | | Genesis Ayon OT | | +--------+ + + + + | 02/25/ | Office | Primary Care | Erika Ernst, | | | 2019 | Visit | | DO [address] | | | | | | [place] [address] | | | | | | [phone] | | | | | | | [...] | | | | | [place] [address] | | | | | | [phone] | | | | | | | | +--------+ + + + + | 02/27/ | Appointment | Radiology | Dhara, | | | 2019 | | | [address] | | | | | | [address] [facility] [place], | | | | | | [place] [address] | | | | | | [phone] | | | | | | | [...] | | | | | [place] [address] | | | | | | [phone] | | | | | | | [...] [place] | | | | | | [address] | | | | | | [phone] | | | | | | | [...] | | | | | [place] [address] | | | | | | [phone] | | | | | | | | | | | | Azul Yeboah, | | | | | | MD [address] | | | | | | [place] | | | | | | [place] [address] | | | | | | [phone] | | | | | | | [...] | | | | | | [place] [address] | | | | | | [phone] | | | | | | | | +--------+ + + + + documented as of this encounter Visit Diagnoses Not on filedocumented in this encounter"
--- OUTSIDE RECORDS SUMMARY | ~2020-02-18 | XMS | Encounter Summary ---
Demographics + + + | Address | [address] | | | [place] [address] | + + + | Home Phone [...] Team Providers + +------+ + | Care Brick Off Bearer Name | Role | Phone | + +------+ + PCP | Unavailable | + +------+ + Encounter Details +--------+ + + + + | Date | Type | Department | Care Team | Description | +--------+ + + + + | 05/03/ | [facility] | [facility] [facility] | Erika Ernst, | | | 2017 | Encounter | [facility] | DO [address] | | | | | MEDICAL CLINIC [address] | [place] [address] | | | | | [address] [place], | [phone] | | | | | [place] [address] | | | | | | [phone] | | | +--------+ + + + [...] | | | | | [place] [address] | | | | | | [phone] | | | | | | | | | | | | Julia Fisher, | | | | | | PT | | +--------+ + + + + | 02/18/ | Appointment | Rehabilitation | Erika Ernst, | | | 2019 | | | DO [address] [place] | | | | | | [place] [address] | | | | | | [phone] | | | | | | | | | | | | Genesis Ayon, OT | | +--------+ + + + + | 02/25/ | Office | Primary Care | Erika Ernst, | | | 2019 | Visit | | DO [address] | | | | | | [place] [address] | | | | | | [phone] | | | | | | | [...] | | | | | [place] [address] | | | | | | [phone] | | | | | | | | +--------+ + + + + | 02/27/ | Appointment | Radiology | Dhara, | | | 2019 | | | [address] | | | | | | 4TH [facility], | | | | | | [place] [address] | | | | | | [phone] | | | | | | | | +--------+ + + + + | 03/04/ | Appointment | Rehabilitation | Genesis Ayon OT | | 2019 | | | | | +--------+ + + + + | 03/09/ | Office | Orthopedic Surgery | Jeffrey Gandhi, | | 2019 | Visit | | [address] [facility] [facility] | | | | | | [place] [address] | | | | | | [phone] | | | | | | | [...] [place] | | | | | | [address] | | | | | | [phone] | | | | | | | [...] | | | | | [place] [address] | | | | | | [phone] | | | | | | | | | | | | Azul Yeboah, | | | | | | [address] | | | | | | [place] | | | | | | [place] [address] | | | | | | [phone] | | | | | | | [...] | | | | | | [place] [address] | | | | | | [phone] | | | | | | | | +--------+ + + + + documented as of this encounter Visit Diagnoses Not on filedocumented in this encounter"
--- OUTSIDE RECORDS SUMMARY | ~2020-02-18 | XMS | Encounter Summary ---
Demographics + + + | Address | [address] | | | [place] [address] | + + + | Home Phone [...] Organization | [facility] | | | [...] Team Providers + +------+ + | Care Taxi Driver Supervisor Name | Role | Phone | + +------+ + PCP | Unavailable | + +------+ + Encounter Details +--------+ + + + + | Date | Type | Department | Care Team | Description | +--------+ + + + + | 03/09/ | [facility] [place] [facility] | Denise Mcgregor | | | 2017 | Encounter | [facility] | G, FORMING PROCESS WORKER | | | | | MEDICAL CLINIC [address] | | | | | | 4TH [facility] [place], | | | | | | [place] [address] | | | | | | [phone] | | | +--------+ + + + [...] | | | | | [place] [address] | | | | | | [phone] | | | | | | | | | | | | Julia Fisher, | | | | | | PT | | +--------+ + + + + | 02/18/ | Appointment | Rehabilitation | Erika Ernst, | | | 2019 | | | DO [address] [place] | | | | | | [place] [address] | | | | | | [phone] | | | | | | | | | | | | Genesis Ayon OT | | +--------+ + + + + | 02/25/ | Office | Primary Care | Erika Ernst, | | | 2019 | Visit | | DO [address] [place] | | | | | | [place] [address] | | | | | | [phone] | | | | | | | | +--------+ + + + + | 02/25/ | Appointment | Rehabilitation | Geneiss Ayon OT | | | 2019 | | | | | +--------+ + + + + | 02/26/ | Virtual | Rehabilitation | Usha Rodriguez | | | 2019 | Office | | MD Precious [address] | | | | Visit | | [address] [place] | | | | | | [place] [address] | | | | | | [phone] | | | | | | | | +--------+ + + + + | 02/27/ | Appointment | Radiology | Dhara, | | | 2019 | | | [address] | | | | | | [address] [place], | | | | | | [place] [address] | | | | | | [phone] | | | | | | | [...] | | | | | [place] [address] | | | | | | [phone] | | | | | | | [...] [place] | | | | | | [address] | | | | | | [phone] | | | | | | | [...] | | | | | [place] [address] | | | | | | [phone] | | | | | | | | | | | | Azul Yeboah, | | | | | | MD [address] | | | | | | [place] | | | | | | [place] [address] | | | | | | [phone] | | | | | | | [...] | | | | | | [place] [address] | | | | | | [phone] | | | | | | | | +--------+ + + + + documented as of this encounter Visit Diagnoses Not on filedocumented in this encounter"
--- OUTSIDE RECORDS SUMMARY | ~2020-02-18 | XMS | Encounter Summary ---
Demographics + + + | Address | [address] | | | [place] [address] | + + + | Home Phone [...] Team Providers + +------+ + | Care [place] Cutting Machine Operator Name | Role | [...] Description | +--------+--------+ + + + | 12/04/ | Refill | [place] [facility] | Erika Ernst, | Medication Refill | | 2020 | | [facility] | DO [address] | | | | | MEDICAL CLINIC [address] | [place] [address] | | | | | [address] [place], | [phone] | | | | | [place] [address] | | | | | | [phone] | | | +--------+--------+ + + + [...] | | | | | [place] [address] | | | | | | [phone] | | | | | | | | | | | | Julia Fisher, | | | | | | PT | | +--------+ + + + + | 02/18/ | Appointment | Rehabilitation | Erika Ernst, | | | 2019 | | | DO [address] [place] | | | | | | [place] [address] | | | | | | [phone] | | | | | | | | | | | | Genesis Ayon OT | | +--------+ + + + + | 02/25/ | Office | Primary Care | Erika Ernst, | | | 2019 | Visit | | DO [address] [place] | | | | | | [place] [address] | | | | | | [phone] | | | | | | | [...] | | | | | [place] [address] | | | | | | [phone] | | | | | | | | +--------+ + + + + | 02/27/ | Appointment | Radiology | Dhara, | | | 2019 | | | [address] | | | | | | 4TH [facility], | | | | | | [place] [address] | | | | | | [phone] | | | | | | | [...] [place] | | | | | | [place] [address] | | | | | | [phone] | | | | | | | [...] [place] | | | | | | [address] | | | | | | [phone] | | | | | | | [...] | | | | | [place] [address] | | | | | | [phone] | | | | | | | | | | | | Azul Yeboah, | | | | | | MD [address] | | | | | | [place] | | | | | | [place] [address] | | | | | | [phone] | | | | | | | [...] | | | | | | [place] [address] | | | | | | [phone] | | | | | | | | +--------+ + + + + documented as of this encounter Visit Diagnoses Not on filedocumented in this encounter"
--- OUTSIDE RECORDS SUMMARY | ~2020-02-18 | XMS | Encounter Summary ---
Demographics + + + | Address | [address] | | | [place] [address] | + + + | Home Phone [...] Providers + +------+ + | Care Manager Immunology Name | Role | Phone | + [...] | [place], [place] | [place] [address] | | | | | [address] | [phone] | | | | | [phone] | | | +--------+ + + + [...] | | | | | [place] [address] | | | | | | [phone] | | | | | | | | | | | | Julia Fisher, | | | | | | PT | | +--------+ + + + + | 02/18/ | Appointment | Rehabilitation | Erika Ernst, | | | 2019 | | | DO [address] [place] | | | | | | [place] [address] | | | | | | [phone] | | | | | | | | | | | | Genesis Ayon OT | | +--------+ + + + + | 02/25/ | Office | Primary Care | Erika Ernst, | | | 2019 | Visit | | DO [address] [place] | | | | | | [place] [address] | | | | | | [phone] | | | | | | | [...] | | | | | | [place] [address] | | | | | | [phone] | | | | | | | | +--------+ + + + + | 02/27/ | Appointment | Radiology | Dhara, | | | 2019 | | | [address] | | | | | | 4TH [facility], | | | | | | [place] [address] | | | | | | [phone] | | | | | | | | +--------+ + + + + | 03/04/ | Appointment | Rehabilitation | Genesis Ayon OT | | | 2019 | | | | | +--------+ + + + + | 03/09/ | Office | Orthopedic Surgery | Jeffrey Gandhi, | | | 2019 | Visit | | [address] | | | | | | [place] [address] | | | | | | [phone] | | | | | | | [...] [place] | | | | | | [address] | | | | | | [phone] | | | | | | | [...] | | | | | [place] [address] | | | | | | [phone] | | | | | | | | | | | | Azul Yeboah, | | | | | | [address] | | | | | | [address] | | | | | | [place] [address] | | | | | | [phone] | | | | | | | [...] | | | | | | [place] [address] | | | | | | [phone] | | | | | | | | +--------+ + + + + documented as of this encounter Visit Diagnoses Not on filedocumented in this encounter"
--- OUTSIDE RECORDS SUMMARY | ~2020-02-18 | XMS | Encounter Summary ---
Demographics + + + | Address | [address] | | | [place] [address] | + + + | Home Phone [...] Team Providers + +------+ + | Care Bologna Lacer Name | Role | Phone | [...] | Services | | Neuropathy | C, SIEVE GRADER TENDER [address] | Luis Rubin MD | | | Required | | of right | [address], | [address] | | | | | upper | [place] | DR, [place] | | | | | extremity | [place] | [place] | | | | | Procedures | [address] | [address] Phone: | | | | | EMG | Phone: | [phone] | | | | | | [phone] | Fax: | | | | | | Fax: | [phone] | | | | | | [phone] | | +--------+ + + + + [...] | Required | | right index | PAGE TECHNICIAN-SIEVE GRADER TENDER | [address] | | | | | finger, | [address] | [place] | | | | | initial | St [place] | [place], [place] | | | | | encounter | [place] | [address] | | | | | Procedures | [address] | Phone: | | | | | [place] | Phone: | [phone] | | | | | | [phone] | Fax: | | | | | | Fax: | [phone] | | | | | | [phone] | | +--------+ + + + + [...] | | | [place] | [address] | (Primary Dx); | | | | [address] | [phone] | Neuropathy of right | | | | [phone] | | upper extremity | +--------+---------+ + [...] | : 1990 | Medical Record Number:[id number] | Author: MOHSEN Martinez | Date of [...] finger. On May [address] [facility] the walk-in clinic and x-rays [...] mouth. Once a week Cholecalciferol (VITAMIN D3) 30699 units TABS Take 1 tablet by mouth [...] ser vices at a facility other than [facility]. Follow-up Return for consultation with neurology [...] E.C.U. Tendon; Surgeon: Inocencio Noriega MD; Location: [facility] SURGERY RIGHT KIDNER PROCEDURE 01/20/2016 Surgeon: Fani Mahajan MD; Location: [facility] TENDON RELEASE TONSILLECTOMY WISDOM TOOTH EXTRACTION Family History Problem Relation Age of Onset Other (see comment) Mother gallbladder disease Hypertension Father Other (see comment) Father arrhymthmia Breast cancer Sister Cervical cancer Maternal Grandmother Heart attack Maternal Aunt MS Social History Socioeconomic History Marital status: Single [...] and their vital signs recorded by my housekeeper/laundry assistant today, a s found in this chart note. Electronically signed by: MOHSEN Martinez 05/21/2019 at 18:23 Note: Part of this report was transcribed using voice recognition software. Every effort wa s made to ensure accuracy. However, inadvertent computerized nail technician errors may be pre sent. CC: [...] | | | | | [place] [address] | | | | | | [phone] | | | | | | | | | | | | Julia Fisher, | | | | | | PT | | +--------+ + + + + | 02/18/ | Appointment | Rehabilitation | Erika Ernst, | | | 2019 | | | DO [address] [place] | | | | | | [place] [address] | | | | | | [phone] | | | | | | | | | | | | Genesis Ayon, OT | | +--------+ + + + + | 02/25/ | Office | Primary Care | Erika Ernst, | | | 2019 | Visit | | DO [address] [place] [address] | | | | | | [place] [address] | | | | | | [phone] | | | | | | | [...] | | | | | [place] [address] | | | | | | [phone] | | | | | | | | +--------+ + + + + | 02/27/ | Appointment | Radiology | Dhara, | | | 2019 | | | DWAINE Ross [address] | | | | | | [address] [place], | | | | | | [place] [address] | | | | | | [phone] | | | | | | | [...] ST | | | | | | [place] [address] | | | | | | [phone] | | | | | | | [...] [place] | | | | | | [address] | | | | | | [phone] | | | | | | | [...] | | | | | [place] [address] | | | | | | [phone] | | | | | | | | | | | | Azul Yeboah, | | | | | | [address] | | | | | | [place] | | | | | | [place] [address] | | | | | | [phone] | | | | | | | [...] | | | | | | [place] [address] | | | | | | [phone] | | | | | | | [...]
--- OUTSIDE RECORDS SUMMARY | ~2020-02-18 | XMS | Encounter Summary ---
Demographics + + + | Address | [address] | | | [place] [address] | + + + | Home Phone [...] Providers + +------+ + | Care Long Wall Shear Operator Name | Role | Phone [...] | | | | | | | CA REPR | | | | | | | FOREARM | | | | | | | TEND/MUSC,EX | | | | | | | TEN,PRIM,EA | | | | | | | CA REPR | | | | | | | FOREARM | | | | | | | TEND/MUSC,EX | | | | | | | TEN,SECOND | | | | | | | CA REPR | | | | | | [...] Event | HOSPITAL OR INTRA OP | TRANSITION COACH [address] | | | | | [address] [place] | [place] [address] | | | | | [place], [place] | [phone] | | | | | [address] | | | | | | [phone] | | | +--------+ + + + + Anesthesia Record + + + + + | Procedure Name | Responsible | Anesthesia Start | Anesthesia Stop Time | | | Anesthesiologist | Time | | + + + + + | AURORA Peralta Tendon | Maxi Monique, | 03/20/19 09 | 03/20/19 1048 | | (Right Arm Lower) | TRANSITION COACH | | | + + + + [...] +----+---+ + + | | 0 | [place] | | | | 9 | 43-degrees [...] 1220 by | | eral | Antecubital; [id number] | Elaine Phelan RN | Anastasia Ceron [...] | | Type: endotracheal; Removal Date: | TRANSITION COACH | TRANSITION COACH | | | 03/20/19; Removal Time: 1043 [...] | | | | | [place] [address] | | | | | | [phone] | | | | | | | | | | | | Julia Fisher, | | | | | | PT | | +--------+ + + + + | 02/18/ | Appointment | Rehabilitation | Erika Ernst, | | | 2019 | | | DO [address] [place] | | | | | | [place] [address] | | | | | | [phone] | | | | | | | | | | | | Genesis Ayon OT | | +--------+ + + + + | 02/25/ | Office | Primary Care | Erika Ernst, | | | 2019 | Visit | | DO [address] [place] | | | | | | [place] [address] | | | | | | [phone] | | | | | | | [...] | | | | | [place] [address] | | | | | | [phone] | | | | | | | | +--------+ + + + + | 02/27/ | Appointment | Radiology | Dhara, | | | 2019 | | | DWAINE Ross [address] | | | | | | [address] [facility] [place], | | | | | | [place] [address] | | | | | | [phone] | | | | | | | [...] [place] | | | | | | [place] [address] | | | | | | [phone] | | | | | | | [...] [place] | | | | | | [address] | | | | | | [phone] | | | | | | | [...] | | | | | [place] [address] | | | | | | [phone] | | | | | | | | | | | | Azul Yeboah, | | | | | | MD [address] | | | | | | [place] | | | | | | [place] [address] | | | | | | [phone] | | | | | | | | +--------+ + + + + | 04/08/ | Appointment | Nutrition | Janel Webster | | | 2019 | | | [address], [address] | | +--------+ + + + + | 05/21/ | Office | Neurology | Dhara, | | | 2019 | Visit | | Karyanne, ORTHOPEDIC SHOE FITTER [address] | | | | | | [address] [place], | | | | | | [place] [address] | | | | | | [phone] | | | | | | | [...]
--- OUTSIDE RECORDS SUMMARY | ~2020-02-18 | XMS | Encounter Summary ---
Demographics + + + | Address | [address] | | | [place] [address] | + + + | Home Phone [...] Providers + +------+ + | Care Financial Legal Assistant Name | Role | Phone | + +------+ + PCP | Unavailable | + +------+ + Encounter Details +--------+ + + + + | Date | Type | Department | Care Team | Description | +--------+ + + + + | 02/10/ | [facility] [place] [facility] | Denise Mcgregor | | | 2016 | Encounter | [facility] | G, ACETYLENE BURNER | | | | | MEDICAL CLINIC [address] | | | | | | [facility] | | | | | | [place] [address] | | | | | | [phone] | | | +--------+ + + + [...] | | | | | [place] [address] | | | | | | [phone] | | | | | | | | | | | | Julia Fisher, | | | | | | PT | | +--------+ + + + + | 02/18/ | Appointment | Rehabilitation | Erika Ernst, | | 2019 | | | DO [address] [place] | | | | | | [place] [address] | | | | | | [phone] | | | | | | | | | | | | Genesis Ayon, SUSAN | | +--------+ + + + + | 02/25/ | Office | Primary Care | Erika Ernst, | | | 2019 | Visit | | DO [address] [place] [address] | | | | | | [place] [address] | | | | | | [phone] | | | | | | | [...] | | | | | [place] [address] | | | | | | [phone] | | | | | | | | +--------+ + + + + | 02/27/ | Appointment | Radiology | Dhara, | | | 2019 | | | DWAINE Ross [address] | | | | | | [address] [place], | | | | | | [place] [address] | | | | | | [phone] | | | | | | | [...] | | | | | [place] [address] | | | | | | [phone] | | | | | | | [...] [place] | | | | | | [address] | | | | | | [phone] | | | | | | | [...] | | | | | [place] [address] | | | | | | [phone] | | | | | | | | | | | | Azul Yeboah, | | | | | | MD [address] | | | | | | [place] | | | | | | [place] [address] | | | | | | [phone] | | | | | | | [...] | | | | | | [place] [address] | | | | | | [phone] | | | | | | | | +--------+ + + + + documented as of this encounter Visit Diagnoses Not on filedocumented in this encounter"
--- OUTSIDE RECORDS SUMMARY | ~2020-02-18 | XMS | Encounter Summary ---
Demographics + + + | Address | [address] | | | [place] [address] | + + + | Home Phone [...] Providers + +------+ + | Care Digital Sales Executive Name | Role | Phone | [...] + | 01/29/ | Telephone | [place] [facility] | Erika Ernst, | Request For Medical | | 2019 | | [facility] | DO [address] | Records | | | | MEDICAL CLINIC [address] | [facility] [place] [address] | | | | | [address] [place], | [phone] | | | | | [place] [address] | | | | | | [phone] | | | +--------+ + + + [...] | | | | | [place] [address] | | | | | | [phone] | | | | | | | | | | | | Julia Fisher, | | | | | | PT | | +--------+ + + + + | 02/18/ | Appointment | Rehabilitation | Erika Ernst, | | | 2019 | | | DO [address] [place] | | | | | | [place] [address] | | | | | | [phone] | | | | | | | | | | | | Genesis Ayon, OT | | +--------+ + + + + | 02/25/ | Office | Primary Care | Erika Ernst, | | | 2019 | Visit | | DO [address] [place] | | | | | | [place] [address] | | | | | | [phone] | | | | | | | [...] | | | | | [place] [address] | | | | | | [phone] | | | | | | | | +--------+ + + + + | 02/27/ | Appointment | Radiology | Dhara, | | | 2019 | | | DWAINE Ross [address] | | | | | | 4TH [facility], | | | | | | [place] [address] | | | | | | [phone] | | | | | | | | +--------+ + + + + | 03/04/ | Appointment | Rehabilitation | Genesis Ayon OT | | | 2019 | | | | | +--------+ + + + + | 03/09/ | Office | Orthopedic Surgery | Jeffrey Gandhi, | | | 2019 | Visit | | [address] | | | | | | [place] [address] | | | | | | [phone] | | | | | | | [...] [place] | | | | | | [address] | | | | | | [phone] | | | | | | | [...] | | | | | [place] [address] | | | | | | [phone] | | | | | | | | | | | | Azul Yeboah, | | | | | | MD [address] | | | | | | [place] | | | | | | [place] [address] | | | | | | [phone] | | | | | | | [...] | | | | | | [place] [address] | | | | | | [phone] | | | | | | | | +--------+ + + + + documented as of this encounter Visit Diagnoses Not on filedocumented in this encounter"
--- OUTSIDE RECORDS SUMMARY | ~2020-02-18 | XMS | Encounter Summary ---
Demographics + + + | Address | [address] | | | [place] [address] | + + + | Home Phone [...] | | | [place] | [place] [address] | [place], [place] | | | | | | Phone: | [address] | | | | | | [phone] | Phone: | | | | | | Fax: | [phone] | | | | | | [phone] | Fax: | | | | | | | [phone] | +--------+ + + + + + [...] | | depression | [place], | [place] | | | | | type | [place] [address] | Health and | | | | | | Phone: | Service | | | | | | [phone] | | | | | | | Fax: | | | | | | | [phone] | | +--------+ + + + + [...] | MEDICAL CLINIC [address] | [place] [address] | (Primary Dx); Asthma | | | | [address] [place], | [phone] | due to | | | | [place] [address] | | environmental | | | | [phone] | | allergies; | | | | [...] | | | | | [place] [address] | | | | | | [phone] | | | | | | | | | | | | Julia Fisher, | | | | | | PT | | +--------+ + + + + | 02/18/ | Appointment | Rehabilitation | Erika Ernst, | | | 2019 | | | DO [address] [place] | | | | | | [place] [address] | | | | | | [phone] | | | | | | | | | | | | Genesis Ayon, OT | | +--------+ + + + + | 02/25/ | Office | Primary Care | Erika Ernst, | | | 2019 | Visit | | DO [address] [place] | | | | | | [place] [address] | | | | | | [phone] | | | | | | | [...] | | | | | [place] [address] | | | | | | [phone] | | | | | | | | +--------+ + + + + | 02/27/ | Appointment | Radiology | Dhara, | | | 2019 | | | DWAINE Ross [address] | | | | | | [address] [place], | | | | | | [place] [address] | | | | | | [phone] | | | | | | | | +--------+ + + + + | 03/04/ | Appointment | Rehabilitation | Genesis Ayon OT | | | 2019 | | | | | +--------+ + + + + | 03/09/ | Office | Orthopedic Surgery | Jeffrey Gandhi, | | 2019 | Visit | | [address] [facility] | | | | | | [place] [address] | | | | | | [phone] | | | | | | | [...] [place] | | | | | | [address] | | | | | | [phone] | | | | | | | [...] | | | | | [place] [address] | | | | | | [phone] | | | | | | | | | | | | Azul Yeboah, | | | | | | MD [address] | | | | | | [place] | | | | | | [place] [address] | | | | | | [phone] | | | | | | | [...] | | | | | | [place] [address] | | | | | | [phone] | | | | | | | [...] + + | [place] [facility] | [address] | [place] | [phone] | | HOSPITAL LAB[facility]ORY | | [address] | | + + + + + [...] | mL/min/1.73m2 | [facility] | | | [facility] | [facility]IM[facility] | | [facility] | | | | mL/min/1.05j2Dohl than | | LABORATORY | | | [...] + + | [place] [facility] | [address] | [place] | [phone] | | HOSPITAL LABORATORY | | [address] | | + + + + + [...]
--- OUTSIDE RECORDS SUMMARY | ~2020-02-18 | XMS | Encounter Summary ---
Demographics + + + | Address | [address] | | | [place] [address] | + + + | Home Phone [...] Team Providers + +------+ + | Care Cdl Truck Driver Name | Role | Phone [...] | | 2019 | Support | [facility] | DO [address] | | | | | MEDICAL CLINIC [address] | [place] [address] | | | | | [address] [place], | [phone] | | | | | [place] [address] | | | | | | [phone] | | | +--------+ + + + [...] | | | | | [place] [address] | | | | | | [phone] | | | | | | | | | | | | Julia Fisher, | | | | | | PT | | +--------+ + + + + | 02/18/ | Appointment | Rehabilitation | Erika Ernst, | | | 2019 | | | DO [address] [place] | | | | | | [place] [address] | | | | | | [phone] | | | | | | | | | | | | Genesis Ayon, OT | | +--------+ + + + + | 02/25/ | Office | Primary Care | Erika Ernst, | | | 2019 | Visit | | DO [address] [place] | | | | | | [place] [address] | | | | | | [phone] | | | | | | | [...] | | | | | [place] [address] | | | | | | [phone] | | | | | | | | +--------+ + + + + | 02/27/ | Appointment | Radiology | Dhara, | | | 2019 | | | DWAINE Ross [address] | | | | | | 4TH [facility], | | | | | | [place] [address] | | | | | | [phone] | | | | | | | | +--------+ + + + + | 03/04/ | Appointment | Rehabilitation | Genesis Ayon OT | | | 2019 | | | | | +--------+ + + + + | 03/09/ | Office | Orthopedic Surgery | Jeffrey Gandhi, | | | 2019 | Visit | | [address] | | | | | | [place] [address] | | | | | | [phone] | | | | | | | [...] [place] | | | | | | [address] | | | | | | [phone] | | | | | | | [...] [address] | | | | | | [phone] | | | | | | | | | | | | Azul Yeboah, | | | | | | MD [address] | | | | | | [place] | | | | | | [place] [address] | | | | | | [phone] | | | | | | | [...] | | | | | | [place] [address] | | | | | | [phone] | | | | | | | | +--------+ + + + + documented as of this encounter Visit Diagnoses Not on filedocumented in this encounter"
--- OUTSIDE RECORDS SUMMARY | ~2020-02-18 | XMS | Encounter Summary ---
Demographics + + + | Address | [address] | | | [place] [address] | + + + | Home Phone [...] Team Providers + +------+ + | Care Quitline Counselor Name | Role | Phone | [...] 05/21/ | Telephone | [place] [facility] | Inocencio Noreiga | Other | | 2019 | | [facility] | MD Malcolm [address] | | | | | [address] [place] [address] | [address] [place] | | | | | [place], [place] | [place] [address] | | | | | [address] | [phone] | | | | | [phone] | | | +--------+ + + + [...] | | | | | [place] [address] | | | | | | [phone] | | | | | | | | | | | | Julia Fisher, | | | | | | PT | | +--------+ + + + + | 02/18/ | Appointment | Rehabilitation | Erika Ernst, | | | 2019 | | | DO [address] [place] | | | | | | [place] [address] | | | | | | [phone] | | | | | | | | | | | | Genesis Ayon OT | | +--------+ + + + + | 02/25/ | Office | Primary Care | Erika Ernst, | | | 2019 | Visit | | DO [address] [place] | | | | | | [place] [address] | | | | | | [phone] | | | | | | | [...] | | | | | [place] [address] | | | | | | [phone] | | | | | | | | +--------+ + + + + | 02/27/ | Appointment | Radiology | Dhara, | | | 2019 | | | DWAINE Ross [address] | | | | | | 4TH [facility] [place], | | | | | | [place] [address] | | | | | | [phone] | | | | | | | [...] [place] | | | | | | [place] [address] | | | | | | [phone] | | | | | | | [...] [place] | | | | | | [address] | | | | | | [phone] | | | | | | | [...] | | | | | [place] [address] | | | | | | [phone] | | | | | | | | | | | | Azul Yeboah, | | | | | | MD [address] | | | | | | [place] | | | | | | [place] [address] | | | | | | [phone] | | | | | | | [...] | | | | | | [place] [address] | | | | | | [phone] | | | | | | | | +--------+ + + + + documented as of this encounter Visit Diagnoses Not on filedocumented in this encounter"
--- OUTSIDE RECORDS SUMMARY | ~2020-02-18 | XMS | Encounter Summary ---
Demographics + + + | Address | [address] | | | [place] [address] | + + + | Home Phone [...] Providers + +------+ + | Care Plastic Card Grader Cardroom Name | Role | Phone | + [...] Refill | | 2018 | | [facility] | DO [address] | | | | | MEDICAL CLINIC [address] | [place] [address] | | | | | [address] [place], | [phone] | | | | | [place] [address] | | | | | | [phone] | | | +--------+--------+ + + + [...] | | | | | [place] [address] | | | | | | [phone] | | | | | | | | | | | | Julia Fisher, | | | | | | PT | | +--------+ + + + + | 02/18/ | Appointment | Rehabilitation | Erika Ernst, | | | 2019 | | | DO [address] [place] | | | | | | [place] [address] | | | | | | [phone] | | | | | | | | | | | | Genesis Ayon OT | | +--------+ + + + + | 02/25/ | Office | Primary Care | Erika Ernst, | | | 2019 | Visit | | DO [address] [place] | | | | | | [place] [address] | | | | | | [phone] | | | | | | | [...] | | | | | [place] [address] | | | | | | [phone] | | | | | | | | +--------+ + + + + | 02/27/ | Appointment | Radiology | Dhara, | | | 2019 | | | DWAINE Ross [address] | | | | | | 4TH [facility], | | | | | | [place] [address] | | | | | | [phone] | | | | | | | [...] | | | | | [place] [address] | | | | | | [phone] | | | | | | | [...] [place] | | | | | | [address] | | | | | | [phone] | | | | | | | [...] | | | | | [place] [address] | | | | | | [phone] | | | | | | | | | | | | Azul Yeboah, | | | | | | MD [address] | | | | | | [place] | | | | | | [place] [address] | | | | | | [phone] | | | | | | | | +--------+ + + + + | 04/08/ | Appointment | Nutrition | Janle Webster | | | 2019 | | | [address] | | +--------+ + + + + | 05/21/ | Office | Neurology | Dhara, | | 2019 | Visit | | DWAINE Ross [address] | | | | | | [address] [place], | | | | | | [place] [address] | | | | | | [phone] | | | | | | | | +--------+ + + + + documented as of this encounter Visit Diagnoses + + | Diagnosis | + + | Depression, unspecified depression type - Primary | + + documented in this encounter"
--- OUTSIDE RECORDS SUMMARY | ~2020-02-18 | XMS | Encounter Summary ---
Demographics + + + | Address | [address] | | | [place] [address] | + + + | Home Phone [...] Team Providers + +------+ + | Care Speeder Hand Name | Role | Phone | + +------+ + PCP | Unavailable | + +------+ + Encounter Details +--------+ + + + + | Date | Type | Department | Care Team | Description | +--------+ + + + + | 11/15/ | [facility] | Nicanor Mckeon | | | 2016 | Encounter | HOSPITAL NURSERY | MD Caryn [address] | | | | | [address] | [place] | | | | | [place] | [address] | | | | | [address] | [phone] | | | | | [phone] | | | +--------+ + + + [...] | | | | | [place] [address] | | | | | | [phone] | | | | | | | | | | | | Julia Fisher, | | | | | | PT | | +--------+ + + + + | 02/18/ | Appointment | Rehabilitation | Erika Ernst, | | | 2019 | | | DO [address] [place] | | | | | | [place] [address] | | | | | | [phone] | | | | | | | | | | | | Genesis Ayon, OT | | +--------+ + + + + | 02/25/ | Office | Primary Care | Erika Ernst, | | | 2019 | Visit | | DO [address] [place] | | | | | | [place] [address] | | | | | | [phone] | | | | | | | [...] | | | | | [place] [address] | | | | | | [phone] | | | | | | | | +--------+ + + + + | 02/27/ | Appointment | Radiology | Dhara, | | | 2019 | | | DWAINE [address] | | | | | | 4TH [facility], | | | | | | [place] [address] | | | | | | [phone] | | | | | | | | +--------+ + + + + | 03/04/ | Appointment | Rehabilitation | Genesis Ayon OT | | | 2019 | | | | | +--------+ + + + + | 03/09/ | Office | Orthopedic Surgery | Jeffrey Gandhi, | | 2019 | Visit | | [address] | | | | | | [place] [address] | | | | | | [phone] | | | | | | | [...] [place] | | | | | | [address] | | | | | | [phone] | | | | | | | [...] | | | | | [place] [address] | | | | | | [phone] | | | | | | | | | | | | Azul Yeboah, | | | | | | MD [address] | | | | | | [place] | | | | | | [place] [address] | | | | | | [phone] | | | | | | | [...] | | | | | | [place] [address] | | | | | | [phone] | | | | | | | | +--------+ + + + + documented as of this encounter Visit Diagnoses Not on filedocumented in this encounter"
--- OUTSIDE RECORDS SUMMARY | ~2020-02-18 | XMS | Encounter Summary ---
Demographics + + + | Address | [address] | | | [place] [address] | + + + | Home Phone [...] Providers + +------+ + | [employer] Name | Role | Phone | [...] Results | | 2018 | | [facility] | LISA Abad | | | | | [address] [place] | | | | | | [place] | | | | | | [address] | | | | | | [phone] | | | +--------+ + + + [...] | | | | | [place] [address] | | | | | | [phone] | | | | | | | | | | | | Julia Fisher, | | | | | | PT | | +--------+ + + + + | 02/18/ | Appointment | Rehabilitation | Erika Ernst, | | | 2019 | | | DO [address] | | | | | | [place] [address] | | | | | | [phone] | | | | | | | | | | | | Genesis Ayon OT | | +--------+ + + + + | 02/25/ | Office | Primary Care | Erika Ernst, | | | 2019 | Visit | | DO [address] [place] | | | | | | [place] [address] | | | | | | [phone] | | | | | | | [...] | | | | | [place] [address] | | | | | | [phone] | | | | | | | | +--------+ + + + + | 02/27/ | Appointment | Radiology | Dhara, | | | 2019 | | | [address] | | | | | | [address] [facility], | | | | | | [place] [address] | | | | | | [phone] | | | | | | | [...] | | | | | [place] [address] | | | | | | [phone] | | | | | | | [...] [place] | | | | | | [address] | | | | | | [phone] | | | | | | | [...] | | | | | [place] [address] | | | | | | [phone] | | | | | | | | | | | | Azul Yeboah, | | | | | | MD [address] | | | | | | [place] | | | | | | [place] [address] | | | | | | [phone] | | | | | | | [...] | | | | | | [place] [address] | | | | | | [phone] | | | | | | | | +--------+ + + + + documented as of this encounter Visit Diagnoses Not on filedocumented in this encounter"
--- OUTSIDE RECORDS SUMMARY | ~2020-02-18 | XMS | Encounter Summary ---
Demographics + + + | Address | [address] | | | [place] [address] | + + + | Home Phone [...] Providers + +------+ + | Care Development Lead Name | Role | Phone | [...] | [facility] | [place] [address] | (Primary Dx); | | | | [address] [place], | [phone] | Anxiety; PTSD | | | | [place] [address] | | (post-traumatic | | | | [phone] | | stress disorder) | +--------+---------+ + [...] daily. 30 tablet 0 Cholecalciferol (VITAMIN D3) 27242 units TABS Take 1 tablet by mouth [...] | | | | | [place], [place] [address] | | | | | | [phone] | | | | | | | | | | | | Julia Fisher, | | | | | | PT | | +--------+ + + + + | 02/18/ | Appointment | Rehabilitation | Erika Ernst, | | | 2019 | | | DO [address] | | | | | | [place] [address] | | | | | | [phone] | | | | | | | | | | | | [facility] | | +--------+ + + + + | 02/25/ | Office | Primary Care | Erika Ernst, | | | 2019 | Visit | | DO [address] | | | | | | [place] [address] | | | | | | [phone] | | | | | | | [...] | | | | | [place] [address] | | | | | | [phone] | | | | | | | | +--------+ + + + + | 02/27/ | Appointment | Radiology | Dhara, | | | 2019 | | | [address] | | | | | | [facility], | | | | | | [place] [address] | | | | | | [phone] | | | | | | | [...] | | | | | [place] [address] | | | | | | [phone] | | | | | | | [...] [place] | | | | | | [address] | | | | | | [phone] | | | | | | | [...] [address] | | | | | | [phone] | | | | | | | | | | | | Azul Yeboah, | | | | | | MD [address] | | | | | | [place] | | | | | | [place] [address] | | | | | | [phone] | | | | | | | [...] | | | | | | [place] [address] | | | | | | [phone] | | | | | | | [...]
--- OUTSIDE RECORDS SUMMARY | ~2020-02-18 | XMS | Encounter Summary ---
Demographics + + + | Address | [address] | | | [place] [address] | + + + | Home Phone [...] Providers + +------+ + | Care Drafter Tool Design Name | Role | Phone | + [...] | | | | | | [place] [address] | [address] | | | | | | Phone: | [place], [place] | | | | | | [phone] | [address] Phone: | | | | | | Fax: | [phone] | | | | | | [phone] | Fax: | | | | | | | [phone] | + + + + + + [...] | [facility] | [place] [address] | (Primary Dx); PTSD | | | | [address] [place], | [phone] | (post-traumatic | | | | [place] [address] | | stress disorder); | | | | [phone] | | Encounter for | | | [...] | | | | | [place] [address] | | | | | | [phone] | | | | | | | | | | | | Julia Fisher, | | | | | | PT | | +--------+ + + + + | 02/18/ | Appointment | Rehabilitation | Erika Ernst, | | | 2019 | | | DO [address] | | | | | | [place] [address] | | | | | | [phone] | | | | | | | | | | | | [facility] | | +--------+ + + + + | 02/25/ | Office | Primary Care | Erika Ernst, | | | 2019 | Visit | | DO [address] | | | | | | [place] [address] | | | | | | [phone] | | | | | | | [...] | | | | | [place] [address] | | | | | | [phone] | | | | | | | | +--------+ + + + + | 02/27/ | Appointment | Radiology | Dhara, | | 2019 | | | [address] | | | | | | [address] [place], | | | | | | [place] [address] | | | | | | [phone] | | | | | | | | +--------+ + + + + | 03/04/ | Appointment | Rehabilitation | [facility] | | | 2019 | | | | | +--------+ + + + + | 03/09/ | Office | Orthopedic Surgery | Jeffrey Gandhi, | | | 2019 | Visit | | [address] | | | | | | [place] [address] | | | | | | [phone] | | | | | | | [...] [place] | | | | | | [address] | | | | | | [phone] | | | | | | | [...] | | | | | [place] [address] | | | | | | [phone] | | | | | | | | | | | | Azul Yeboah, | | | | | | MD [address] | | | | | | [place] | | | | | | [place] [address] | | | | | | [phone] | | | | | | | [...] | | | | | | [place] [address] | | | | | | [phone] | | | | | | | [...] + + | [place] [facility] | [address] | [place] | [phone] | | [facility] | | [address] | | + + + + + [...]
--- OUTSIDE RECORDS SUMMARY | ~2020-02-18 | XMS | Encounter Summary ---
Demographics + + + | Address | [address] | | | [place] [address] | + + + | Home Phone [...] Team Providers + +------+ + | Care Treatment Plant Mechanic Name | Role | Phone | [...] Follow-up | | 2019 | | [facility] | DO Jackelyn Garcia | | | | | [address] [place] | [address] [place] | | | | | [place], [place] | [place] | | | | | [address] | [address] | | | | | [phone] | [phone] | | | | | | | [...] | 2019 | | | DO [address] [facility] | | | | | | [place] [address] | | | | | | [phone] | | | | | | | | | | | | Julia Fisher, | | | | | | PT | | +--------+ + + + + | 02/18/ | Appointment | Rehabilitation | Erika Ernst, | | | 2019 | | | DO [address] | | | | | | [place] [address] | | | | | | [phone] | | | | | | | | | | | | [facility] | | +--------+ + + + + | 02/25/ | Office | Primary Care | Erika Ernst, | | | 2019 | Visit | | DO [address] | | | | | | [place] [address] | | | | | | [phone] | | | | | | | [...] | | | | | [place] [address] | | | | | | [phone] | | | | | | | | +--------+ + + + + | 02/27/ | Appointment | Radiology | Dhara, | | | 2019 | | | [address] | | | | | | 4TH [facility], | | | | | | [place] [address] | | | | | | [phone] | | | | | | | [...] [place] | | | | | | [place] [address] | | | | | | [phone] | | | | | | | [...] [place] | | | | | | [address] | | | | | | [phone] | | | | | | | [...] | | | | | [place] [address] | | | | | | [phone] | | | | | | | | | | | | Azul Yeboah, | | | | | | MD [address] | | | | | | [place] | | | | | | [place] [address] | | | | | | [phone] | | | | | | | [...] | | | | | | [place] [address] | | | | | | [phone] | | | | | | | | +--------+ + + + + documented as of this encounter Visit Diagnoses Not on filedocumented in this encounter"
--- OUTSIDE RECORDS SUMMARY | ~2020-02-18 | XMS | Encounter Summary ---
Demographics + + + | Address | [address] | | | [place] [address] | + + + | Home Phone [...] Team Providers + +------+ + | Care Investigator Claims Name | Role | Phone | [...] | [facility] | [place] [address] | | | | | [address] [place], | [phone] | | | | | [place] [address] | | | | | | [phone] | | | +--------+ + + + [...] | | | | | [place] [address] | | | | | | [phone] | | | | | | | | | | | | Forma, Julia M, | | | | | | PT | | +--------+ + + + + | 02/18/ | Appointment | Rehabilitation | Erika Ernst, | | | 2019 | | | DO [address] | | | | | | [place] [address] | | | | | | [phone] | | | | | | | | | | | | [facility] | | +--------+ + + + + | 02/25/ | Office | Primary Care | Erika Ernst, | | | 2019 | Visit | | DO [address] | | | | | | [place] [address] | | | | | | [phone] | | | | | | | [...] [place] | | | | | | [place] [address] | | | | | | [phone] | | | | | | | | +--------+ + + + + | 02/27/ | Appointment | Radiology | Dhara, | | | 2019 | | | [address] | | | | | | 4TH [facility], | | | | | | [place] [address] | | | | | | [phone] | | | | | | | [...] ST | | | | | | [place] [address] | | | | | | [phone] | | | | | | | [...] [place] | | | | | | [address] | | | | | | [phone] | | | | | | | [...] [address] | | | | | | [phone] | | | | | | | | | | | | Azul Yeboah, | | | | | | MD [address] | | | | | | [place] | | | | | | [place] [address] | | | | | | [phone] | | | | | | | [...] | | | | | | [place] [address] | | | | | | [phone] | | | | | | | | +--------+ + + + + documented as of this encounter Visit Diagnoses Not on filedocumented in this encounter"
--- OUTSIDE RECORDS SUMMARY | ~2020-02-18 | XMS | Encounter Summary ---
Demographics + + + | Address | [address] | | | [place] [address] | + + + | Home Phone [...] Team Providers + +------+ + | Care Pin Chaser Name | Role | Phone | + [...] | | | | s (de | [place], [place] | [place] [address] | | | | | quervain) | [address] | Phone: | | | | | Pain in | Phone: | [phone] | | | | | right wrist | [phone] | Fax: | | | | | Procedures | Fax: | [phone] | | | | | OT TREAT | [phone] | | +--------+--------+ + + + + [...] | | [address] [place] | [place] [address] | (Primary Dx); Right | | | | [place], [place] | [phone] | wrist pain | | | | [address] | | | | | | [phone] | [facility] | | +--------+ [...] PST [facility] [facility] [address] [place] [address] Occupational Therapy Daily Treatment Note Date: 10/18/2018 [...] 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 and pinch weakness in the right hand [...] | | | | | [place] [address] | | | | | | [phone] | | | | | | | | | | | | Julia Fisher, | | | | | | PT | | +--------+ + + + + | 02/18/ | Appointment | Rehabilitation | Erika Ernst, | | | 2019 | | | DO [address] [place] | | | | | | [place] [address] | | | | | | [phone] | | | | | | | | | | | | [facility] | | +--------+ + + + + | 02/25/ | Office | Primary Care | Erika Ernst, | | | 2019 | Visit | | DO [address] | | | | | | [place] [address] | | | | | | [phone] | | | | | | | [...] | | | | | [place] [address] | | | | | | [phone] | | | | | | | | +--------+ + + + + | 02/27/ | Appointment | Radiology | Dhara, | | | 2019 | | | [address] | | | | | | 4TH [facility], | | | | | | [place] [address] | | | | | | [phone] | | | | | | | | +--------+ + + + + | 03/04/ | Appointment | Rehabilitation | [facility] | | | 2019 | | | | | +--------+ + + + + | 03/09/ | Office | Orthopedic Surgery | Jeffrey Gandhi, | | | 2019 | Visit | | [address] | | | | | | [place] [address] | | | | | | [phone] | | | | | | | [...] [place] | | | | | | [address] | | | | | | [phone] | | | | | | | [...] | | | | | [place] [address] | | | | | | [phone] | | | | | | | | | | | | Azul Yeboah, | | | | | | MD [address] | | | | | | [place] | | | | | | [place] [address] | | | | | | [phone] | | | | | | | [...] | | | | | | [place] [address] | | | | | | [phone] | | | | | | | | +--------+ + + + + documented as of this encounter Visit Diagnoses + + | Diagnosis | + + | Radial styloid tenosynovitis - Primary | + + | Right wrist pain Pain in joint, forearm | + + documented in this encounter"
--- OUTSIDE RECORDS SUMMARY | ~2020-02-18 | XMS | Encounter Summary ---
Demographics + + + | Address | [address] | | | [place] [address] | + + + | Home Phone [...] Providers + +------+ + | Care Obgyn Hospitalist Physician Name | Role | Phone | [...] | [facility] | [place] [address] | frontal sinusitis | | | | [address] [place], | [phone] | | | | | [place] [address] | | | | | | [phone] | | | +--------+---------+ + + + [...] to FU with Emeka Vaughan for her [facility] health therapy. She has good BP today. [...] | | | | | [place] [address] | | | | | | [phone] | | | | | | | | | | | | Julia Fisher, | | | | | | PT | | +--------+ + + + + | 02/18/ | Appointment | Rehabilitation | Erika Ernst, | | | 2019 | | | DO [address] | | | | | | [place] [address] | | | | | | [phone] | | | | | | | | | | | | [facility] | | +--------+ + + + + | 02/25/ | Office | Primary Care | Erika Ernst, | | | 2019 | Visit | | DO [address] | | | | | | [place] [address] | | | | | | [phone] | | | | | | | [...] | | | | | [place] [address] | | | | | | [phone] | | | | | | | | +--------+ + + + + | 02/27/ | Appointment | Radiology | Dhara, | | | 2019 | | | [address] | | | | | | [facility] | | | | | | [place] [address] | | | | | | [phone] | | | | | | | | +--------+ + + + + | 03/04/ | Appointment | Rehabilitation | [facility] | | 2019 | | | | | +--------+ + + + + | 03/09/ | Office | Orthopedic Surgery | Jeffrey Gandhi, | | 2019 | Visit | | [address] | | | | | | [place] [address] | | | | | | [phone] | | | | | | | [...] [place] | | | | | | [address] | | | | | | [phone] | | | | | | | [...] | | | | | [place] [address] | | | | | | [phone] | | | | | | | | | | | | Azul Yeboah, | | | | | | MD [address] | | | | | | [place] | | | | | | [place] [address] | | | | | | [phone] | | | | | | | [...] | | | | | | [place] [address] | | | | | | [phone] | | | | | | | | +--------+ + + + + documented as of this encounter Visit Diagnoses + + | Diagnosis | + + | Anxiety - Primary Anxiety state, unspecified | + + | Acute recurrent frontal sinusitis Acute frontal sinusitis | + + documented in this encounter
--- OUTSIDE RECORDS SUMMARY | ~2020-02-18 | XMS | Encounter Summary ---
Demographics + + + | Address | [address] | | | [place] [address] | + + + | Home Phone [...] Providers + +------+ + | Care Technical Solutions Engineer Name | Role | Phone | [...] + + + + | 05/20/ | Telephone | [place] [facility] | Erika Ernst, | Lab Results | | 2019 | | [facility] | DO [address] | | | | | [facility] | [place] [address] | | | | | [address] [place], | [phone] | | | | | [place] [address] | | | | | | [phone] | | | +--------+ + + + [...] | | | | | [place] [address] | | | | | | [phone] | | | | | | | | | | | | Forma, Julia M, | | | | | | PT | | +--------+ + + + + | 02/18/ | Appointment | Rehabilitation | Erika Ernst, | | | 2019 | | | DO [address] | | | | | | [place] [address] | | | | | | [phone] | | | | | | | | | | | | [facility] | | +--------+ + + + + | 02/25/ | Office | Primary Care | Erika Ernts, | | | 2019 | Visit | | DO [address] | | | | | | [place] [address] | | | | | | [phone] | | | | | | | [...] | | | | | [place] [address] | | | | | | [phone] | | | | | | | | +--------+ + + + + | 02/27/ | Appointment | Radiology | Dhara, | | | 2019 | | | [address] | | | | | | [address] [facility], | | | | | | [place] [address] | | | | | | [phone] | | | | | | | [...] ST | | | | | | [place] [address] | | | | | | [phone] | | | | | | | [...] [place] | | | | | | [address] | | | | | | [phone] | | | | | | | [...] | | | | | [place] [address] | | | | | | [phone] | | | | | | | | | | | | Azul Yeboah, | | | | | | MD [address] | | | | | | [place] | | | | | | [place] [address] | | | | | | [phone] | | | | | | | [...] | | | | | | [place] [address] | | | | | | [phone] | | | | | | | | +--------+ + + + + documented as of this encounter Visit Diagnoses Not on filedocumented in this encounter"
--- OUTSIDE RECORDS SUMMARY | ~2020-02-18 | XMS | Encounter Summary ---
Demographics + + + | Address | [address] | | | [place] [address] | + + + | Home Phone [...] Providers + +------+ + | Care Stitch Burnisher Name | Role | Phone | [...] | [facility] | [place] [address] | | | | | [address] [place], | [phone] | | | | | [place] [address] | | | | | | [phone] | | | +--------+--------+ + + + [...] | | | | | [place] [address] | | | | | | [phone] | | | | | | | | | | | | Julia Fisher, | | | | | | PT | | +--------+ + + + + | 02/18/ | Appointment | Rehabilitation | Erika Ernst, | | | 2019 | | | DO [address] | | | | | | [place] [address] | | | | | | [phone] | | | | | | | | | | | | [facility] | | +--------+ + + + + | 02/25/ | Office | Primary Care | Erika Ernst, | | | 2019 | Visit | | DO [address] | | | | | | [place] [address] | | | | | | [phone] | | | | | | | [...] | | | | | [place] [address] | | | | | | [phone] | | | | | | | | +--------+ + + + + | 02/27/ | Appointment | Radiology | Dhara, | | | 2019 | | | [address] | | | | | | 4TH [facility], | | | | | | [place] [address] | | | | | | [phone] | | | | | | | [...] [place] | | | | | | [place] [address] | | | | | | [phone] | | | | | | | [...] [place] | | | | | | [address] | | | | | | [phone] | | | | | | | [...] | | | | | [place] [address] | | | | | | [phone] | | | | | | | | | | | | Azul Yeboah, | | | | | | MD [address] | | | | | | [place] | | | | | | [place] [address] | | | | | | [phone] | | | | | | | [...] | | | | | | [place] [address] | | | | | | [phone] | | | | | | | | +--------+ + + + + documented as of this encounter Visit Diagnoses Not on filedocumented in this encounter"
--- OUTSIDE RECORDS SUMMARY | ~2020-02-18 | XMS | Encounter Summary ---
Demographics + + + | Address | [address] | | | [place] [address] | + + + | Home Phone [...] Team Providers + +------+ + | Care Shield Operator Name | Role | Phone | [...] + + | Pending | Specialty | Behavioral | Diagnoses | Klever, | NEW | | Review | Services | Health | Anxiety | Erika Salter DO | DIRECTIONS [address] | | | Required | | PTSD | [address] | BEHAVIORAL | | | | | (post-trauma | [place], | [facility] [address] | | | | | tic stress | [place] [address] | [address] | | | | | disorder) | Phone: | [place], [place] | | | | | Reactive | [phone] | [address] | | | | | depression | Fax: | Phone: | | | | | | [phone] | [phone] | | | | | | | Fax: | | | | | | | [phone] | + + + + + + + Reason for Visit + + + | Reason | Comments | + + + | Follow-up | dizzy light headed | + + + Encounter Details +--------+---------+ + + + | Date | Type | Department | Care Team | Description | +--------+---------+ + + + | 10/24/ | Office | [facility] | Erika Ernst, | Dizziness (Primary | | 2020 | Visit | [facility] | DO [address] | Dx); Essential | | | | [facility] | [place] [address] | hypertension; | | | [address] [place], | [phone] | Acquired | | | | [place] [address] | | hypothyroidism; | | | | [phone] | | Vitamin D | | | | | | deficiency; Anxiety; | | | | | | PTSD | | | | | | (post-traumatic | | | | | | stress disorder); | | | | | | Reactive depression | +--------+---------+ + + + Social History [...] + + + | Blood Pressure | 126/88 | 10/24/2019 10:16 AM | | | | | PST | | + + + + + | Pulse | 80 | 10/24/2019 10:16 AM | | | | | PST | | + + + + + | Temperature | - | - | | + + + + + | Respiratory Rate | 18 | 10/24/2019 10:16 AM | | | | | PST | | + + + + + | Oxygen Saturation | 98% | 10/24/2019 10:16 AM | | | | | PST | | + + + + + | Inhaled Oxygen | - | - | | | Concentration | | | | + + + + + | Weight | 165.6 kg (365 lb) | 10/24/2019 10:16 AM | | | | | PST | | + + + + + | Height | 177.8 cm (5' 10") | 10/24/2019 10:16 AM | | | | | PST | | + + + + + | Body Mass Index | 52.37 | 10/24/2019 10:16 AM | | | | | PST | | + + + + + documented in this encounter Erika Kumar DO - 10/24/2019 10:20 AM PSTFormatting of this note might be different fro m the original. Subjective: Patient ID: Andrea Suh is a 29 y.o. female. Here with complaints of dizziness when getting her mammogram done. Mammo was normal. She th en went to [facility] because she was worried. The indicated it was anxiety related. She has had increased anxiety and some depression now with her Mom's on top of chronic PTS D and mental health issues. She has not wanted to see a mental health provider because has c ontinued to say she knows every on in the system and does not want to see some one she knows . Today states she will try the [employer] and we will make referral. She would like labs today to assure all is in balance and she is worried about her thyroid l evels and vitamin D. Last checked in the Fall and stable but we can recheck. HTN is well con trolled today. No dizziness at present but has some head congestion that is chronic. No whee ze or asthma flair. No cough or fevers. Agrees to increase her buspar dose for anxiety. Some trouble with sleep and recommended herbals she can try. Non-smoker. Review of Systems As above Objective: BP 126/88 | Pulse 80 | Resp 18 | Ht 1.778 m (5' 10") | Wt (!) 165.6 kg (365 lb) | SpO2 98% | BMI 52.37 kg/m Physical Exam Constitutional: General: She is not in acute distress. HENT: Head: Normocephalic and atraumatic. Right Ear: Tympanic membrane and ear canal normal. Left Ear: Tympanic membrane normal. Mouth/Throat: Mouth: Mucous membranes are moist. Pharynx: Oropharynx is clear. No posterior oropharyngeal erythema. Eyes: Extraocular Movements: Extraocular movements intact. Cardiovascular: Rate and Rhythm: Normal rate and regular rhythm. Heart sounds: No murmur. Pulmonary: Effort: Pulmonary effort is normal. No respiratory distress. Breath sounds: Normal breath sounds. Lymphadenopathy: Cervical: No cervical adenopathy. Skin: General: Skin is warm and dry. Capillary Refill: Capillary refill takes less than 2 seconds. Findings: No rash. Neurological: General: No focal deficit present. Mental Status: She is alert and oriented to person, place, and time. Gait: Gait normal. Psychiatric: Mood and Affect: Mood normal. Behavior: Behavior normal. Thought Content: Thought content normal. Judgment: Judgment normal. Assessment: 1. Dizziness 2. Essential hypertension CBC with Differential Comprehensive Metabolic Panel 3. Acquired hypothyroidism TSH 4. Vitamin D deficiency Vitamin D, Deficiency Screen (25-Hydroxy) 5. Anxiety Behavioral Health, External - AMB Referral 6. PTSD (post-traumatic stress disorder) Behavioral Health, External - AMB Referral 7. Reactive depression Behavioral Health, External - AMB Referral Plan: Rest and increase fluids and take meclizine prn. Continue the current HTN control. Increase Buspar to 10 mg 5 X a day. Referral to [facility]. Labs, TSH, vitamin D, CMP, CBC documented in this en counter Plan of Treatment +--------+ + + + + | Date | Type | Specialty | Care Team | Description | +--------+ + + + + | 02/18/ | Appointment | Rehabilitation | Erika Ernst, | | 2019 | | | DO [address] [place] | | | | | | [place] [address] | | | | | | [phone] | | | | | | | | | | | | Julia Fisher, | | | | | | PT | | +--------+ + + + + | 02/18/ | Appointment | Rehabilitation | Erika Ernst, | | 2019 | | | DO [address] [place] | | | | | | [place] [address] | | | | | | [phone] | | | | | | | | | | | | Genesis Ayon, SUSAN | | +--------+ + + + + | 02/25/ | Office | Primary Care | Erika Ernst, | | | 2019 | Visit | | DO [address] [place] [address] | | | | | | [place] [address] | | | | | | [phone] | | | | | | | [...] | | | | | [place] [address] | | | | | | [phone] | | | | | | | | +--------+ + + + + | 02/27/ | Appointment | Radiology | Dhara, | | | 2019 | | | [address] Ross [address] | | | | | | [address] [place], | | | | | | [place] [address] | | | | | | [phone] | | | | | | | | +--------+ + + + + | 03/04/ | Appointment | Rehabilitation | Genesis Ayon OT | | | 2019 | | | | | +--------+ + + + + | 03/09/ | Office | Orthopedic Surgery | Jeffrey Gandhi, | | | 2019 | Visit | | [address] | | | | | | [place] [address] | | | | | | [phone] | | | | | | | [...] [place] | | | | | | [address] | | | | | | [phone] | | | | | | | [...] [address] | | | | | | [phone] | | | | | | | | | | | | Azul Yeboah, | | | | | | MD [address] | | | | | | [place] | | | | | | [place] [address] | | | | | | [phone] | | | | | | | [...] | | | | | | [place] [address] | | | | | | [phone] | | | | | | | | +--------+ + + + + + + +--------+ + + | Name | Type | Priori | Associated Diagnoses | Order Schedule | | | | ty | | | + + +--------+ + + | Behavioral Health, | Outpatient | Routin | Anxiety PTSD | Ordered: 10/24/2019 | | External - AMB | Referral | e | (post-traumatic | | | Referral | | | stress disorder) | | | | | | Reactive depression | | + + +--------+ + + documented as of this encounter Procedures + +--------+ + + + | Procedure Name | Priori | Date/Time | Associated Diagnosis | Comments | | | ty | | | | + +--------+ + + + | VITAMIN D, | Routin | 10/24/2019 | Vitamin D | Results for this | | DEFICIENCY SCREEN | e | 10:47 AM | deficiency | procedure are in the | | (25-HYDROXY) | | PST | | results section. | + +--------+ + + + documented in this encounter Results TSH (10/24/2019 10:47 AM PST) + +-------+ + + + | Component | Value | Ref Range | Performed | Pathologist | | | | | At | Signature | + +-------+ + + + | TSH | 2.30 | 0.36 - 3.74 | [place] | [...] + + | [facility] [facility] | [address] | [place], [place] | [phone] | | [facility] | | [address] | | | [facility] | | | | + + + + + Vitamin D, Deficiency Screen (25-Hydroxy) (10/24/2019 10:47 AM PST) + +--------+ + + + | Component | Value | Ref Range | Performed | Pathologist | | | | | At | Signature | + +--------+ + + + | Vitamin D, | 29 (L) | 30 - 100 ng/mL | [...] + + | [facility] [facility] | [address] | [place] | [phone] | | [facility] | | [address] | | + + + + + Comprehensive Metabolic Panel (10/24/2019 10:47 AM PST) + + + + + [...] + + + + | Glucose | 94 | 70 - 110 mg/dL | [place] | | | | | | [facility] | | | | | [facility] | | | | | | [facility] | | + + + + + + | BUN | 9 | 5 - 26 mg/dL | [place] | | | | | [facility] | [facility] | | | | | [facility] | | | | | | [facility] | | + + + + + + | Creatinine | 0.77 | 0.70 - 1.40 | [place] | [...] | mL/min/1.73m2 | [facility] | | | CYMRO | RATE,ESTIMATED | | [facility]OS[facility] | | | | mL/min/1.81h6Mitq than | | REGIONAL | | | [...] + + + + | ALT | 21 | 14 - 59 U/L | [place] | | | | | | [facility] | [facility] | | | | | | [facility] | | | | | | [facility] | | + + + + + + | Alkaline | 74 | 46 - 116 U/L | [place] | | | Phosphatase | | | [facility] | | [facility] | | | | | | [facility] | | | | | | [facility] | | + + + + + + | Globulin | 3.3 | 2.4 - 4.5 g/dL | [place] | | | | | | [facility] | [facility] | | | | | [facility] | | | | | | [facility] | | + + + + + + | Albumin/Nancy | 1.1 | 0.8 - 2.0 | [place] | | | bulin Ratio | | | [facility] | | | [facility] | | | | | | [facility] | | | | | | [facility] | | + + + + + + | BUN/Creatin | 11.7 | 7.0 - 24.0 | [place] | [...] + + | [facility] [facility] | [address] | [place], [place] | [phone] | | [facility] | | [address] | | | MEDICAL [facility]ENTER [facility] | | | | + + + + + CBC with Differential (10/24/2019 10:47 AM PST) + + + + + + | Component | Value | Ref Range | Performed | Pathologist | | | | | At | Signature | + + + + + + | WBC | 7.6 | 4.3 - 10.4 K/uL | [place] [...] + + + + | Hematocrit | 37.3 (L) | 37.7 - 47.0 % | [place] | | | | | | [facility] | | | | | [facility] | | | | | | [facility] | | + + + + + + | MCV | 86.4 | 82.0 - 97.0 fL | [place] [...] + + + + | MCHC | 32.2 | 32.0 - 36.9 | [place] | [...] + + + + | Platelet | 331 | 150 - 450 K/uL | [place] | | | Count | | | [facility] | [facility] | | | [facility] | | | | | | [facility] | | + + + + + + | MPV | 9.3 (L) | 9.4 - 12.3 fL | [place] | | | | | | [facility] | | | | [facility] | | | | | [facility] | | | | | | [facility] | | + + + + + + | % | 58.9 | 42.0 - 76.0 % | [place] | | | Neutrophils | | | [facility] | | | | | | [facility] | | | | | | [facility] | | | | | | [facility] | | + + + + + + | % | 34.1 | 20.0 - 40.0 % | [place] [...] + + + + | % | 0.6 | 0.0 - 7.0 % | [place] | | | Eosinophils | | | [facility] | | | | | | [facility] | | | | | | [facility] | | | | | | [facility] | | + + + + + + | % Basophils | 0.9 | 0.0 - 2.0 % | [place] | | | | | | [facility] | | | | [facility] | [facility] | | | | | | [facility] | | | | | | [facility] | | + + + + + + | Absolute | 4.50 | 2.50 - 8.50 | [place] | | | Neutrophils | | K/uL | [facility] | | | | | [facility] | | | | | | [facility] | | | | | | [facility] | | + + + + + + | Absolute | 2.60 | 1.00 - 3.80 | [place] | [...] | Absolute | 0.00 | 0.00 - 0.70 | [place] | | | Eosinophils | | K/uL | [facility] | | | | | | [facility] | | | | | | [facility] | | | | | | [facility] LAB | | + + + + + + | Absolute | 0.10 | 0.00 - 0.20 | [place] | [...] + + | [facility] | [address] | [place] | [phone] | | [facility] | | [address] | | | [facility] | | | | + + + + + documented in this encounter Visit Diagnoses + + | Diagnosis | + + | Dizziness - Primary Dizziness and giddiness | + + | Essential hypertension Unspecified essential hypertension | + + | Acquired hypothyroidism Unspecified hypothyroidism | + + | Vitamin D deficiency Unspecified vitamin D deficiency | + + | Anxiety Anxiety state, unspecified | + + | PTSD (post-traumatic stress disorder) Posttraumatic stress disorder | + + | Reactive depression Dysthymic disorder | + + documented in this encounter
--- OUTSIDE RECORDS SUMMARY | ~2020-02-18 | XMS | Encounter Summary ---
Demographics + + + | Address | [address] | | | [place] [address] | + + + | Home Phone [...] Providers + +------+ + | Care Utility Helicopter Repairer Name | Role | Phone | [...] Essential | | 2019 | Visit | [facility] | DO [address] | hypertension | | | | MEDICAL CL[facility] [address] | [place] [address] | (Primary Dx); | | | | [address] [place], | [phone] | Vitamin D | | | | [place] [address] | | deficiency; | | | | [phone] | | Screening for | | | [...] | | | | | [place] [address] | | | | | | [phone] | | | | | | | | | | | | Julia Fisher, | | | | | | PT | | +--------+ + + + + | 02/18/ | Appointment | Rehabilitation | Erika Ernst, | | | 2019 | | | DO [address] | | | | | | [place] [address] | | | | | | [phone] | | | | | | | | | | | | Genesis Ayon, OT | | +--------+ + + + + | 02/25/ | Office | Primary Care | Erika Ernst, | | | 2019 | Visit | | DO [address] | | | | | | [place] [address] | | | | | | [phone] | | | | | | | [...] | | | | | [place] [address] | | | | | | [phone] | | | | | | | | +--------+ + + + + | 02/27/ | Appointment | Radiology | Dhara, | | 2019 | | | [address] | | | | | | [address] [place], | | | | | | [place] [address] | | | | | | [phone] | | | | | | | [...] ST | | | | | | [place] [address] | | | | | | [phone] | | | | | | | [...] [place] | | | | | | [address] | | | | | | [phone] | | | | | | | [...] | | | | | [place] [address] | | | | | | [phone] | | | | | | | | | | | | Azul Yeboah, | | | | | | [address] | | | | | | [place] | | | | | | [place] [address] | | | | | | [phone] | | | | | | | | +--------+ + + + + | 04/08/ | Appointment | Nutrition | Janel Webster | | | 2019 | | | [place] | | +--------+ + + + + | 05/21/ | Office | Neurology | hDara, | | | 2019 | Visit | | [address] | | | | | | 4TH [facility], | | | | | | [place] [address] | | | | | | [phone] | | | | | | | [...] + + | [facility] [facility] | [address] | [place] | [phone] | | [facility] | | [address] | | + + + + + [...] + + | [facility] | [address] | [place], [place] | [phone] | | H[facility]ITAL [facility] | | [address] | | + + + + + [...] | mL/min/1.73m2 | [facility] | | | [facility] | RATE,ESTIMATED | | [facility] | | | | mL/min/1.99o2Sykq than | | LABORATORY | | | [...] + + | [facility] | [address] | [place] | [phone] | | [facility] | | [address] | | + + + + + [...]
--- OUTSIDE RECORDS SUMMARY | ~2020-02-18 | XMS | Encounter Summary ---
Demographics + + + | Address | [address] | | | [place] [address] | + + + | Home Phone [...] Team Providers + +------+ + | Care Skilled Labor Name | Role | Phone | + [...] [address] | [facility] [place] [address] | | | | | [address] [facility], | [phone] | | | | | [place] [address] | | | | | | [phone] | | | +--------+ + + + [...] | | | | | [place] [address] | | | | | | [phone] | | | | | | | | | | | | Julia Fisher, | | | | | | PT | | +--------+ + + + + | 02/18/ | Appointment | Rehabilitation | Erika Ernst, | | | 2019 | | | DO [address] [place] | | | | | | [place] [address] | | | | | | [phone] | | | | | | | | | | | | Genesis Ayon OT | | +--------+ + + + + | 02/25/ | Office | Primary Care | Erika Ernst, | | | 2019 | Visit | | DO [address] [place] | | | | | | [place] [address] | | | | | | [phone] | | | | | | | [...] | | | | | [place] [address] | | | | | | [phone] | | | | | | | | +--------+ + + + + | 02/27/ | Appointment | Radiology | Dhara, | | | 2019 | | | [address] | | | | | | [address]TH [facility], | | | | | | [place] [address] | | | | | | [phone] | | | | | | | | +--------+ + + + + | 03/04/ | Appointment | Rehabilitation | Genesis Ayon OT | | | 2019 | | | | | +--------+ + + + + | 03/09/ | Office | Orthopedic Surgery | Jeffrey Gandhi, | | 2019 | Visit | | [address] | | | | | | [place] [address] | | | | | | [phone] | | | | | | | [...] [place] | | | | | | [address] | | | | | | [phone] | | | | | | | [...] [address] | | | | | | [phone] | | | | | | | | | | | | Azul Yeboah, | | | | | | MD [address] | | | | | | [place] | | | | | | [place] [address] | | | | | | [phone] | | | | | | | [...] | | | | | | [place] [address] | | | | | | [phone] | | | | | | | | +--------+ + + + + documented as of this encounter Visit Diagnoses Not on filedocumented in this encounter"
--- OUTSIDE RECORDS SUMMARY | ~2020-02-18 | XMS | Encounter Summary ---
Demographics + + + | Address | [address] | | | [place] [address] | + + + | Home Phone [...] Providers + +------+ + | Care Plant Clerk Name | Role | Phone | + +------+ + PCP | Unavailable | + +------+ + Encounter Details +--------+ + + + + | Date | Type | Department | Care Team | Description | +--------+ + + + + | 12/27/ | [facility] [place] [facility] | Denise Mcgregor | | | 2017 | Encounter | [facility] | G, [address]TER | | | | | MEDICAL CLIN[facility] [address] | | | | | | [address]TH [facility] [place], | | | | | | [place] [address] | | | | | | [phone] | | | +--------+ + + + [...] | | | | | [place] [address] | | | | | | [phone] | | | | | | | | | | | | Julia Fisher, | | | | | | PT | | +--------+ + + + + | 02/18/ | Appointment | Rehabilitation | Erika Ernst, | | | 2019 | | | DO [address] [place] | | | | | | [place] [address] | | | | | | [phone] | | | | | | | | | | | | Genesis Ayon OT | | +--------+ + + + + | 02/25/ | Office | Primary Care | Erika Ernst, | | | 2019 | Visit | | [address] [place] [address] | | | | | | [place] [address] | | | | | | [phone] | | | | | | | [...] | | | | | [place] [address] | | | | | | [phone] | | | | | | | | +--------+ + + + + | 02/27/ | Appointment | Radiology | Dhara, | | | 2019 | | | [address] | | | | | | [address] [place], | | | | | | [place] [address] | | | | | | [phone] | | | | | | | | +--------+ + + + + | 03/04/ | Appointment | Rehabilitation | Genesis Ayon OT | | 2019 | | | | | +--------+ + + + + | 03/09/ | Office | Orthopedic Surgery | Jeffrey Gandhi, | | | 2019 | Visit | | MD [address] | | | | | | [place] [address] | | | | | | [phone] | | | | | | | [...] [place] | | | | | | [address] | | | | | | [phone] | | | | | | | [...] | | | | | [place] [address] | | | | | | [phone] | | | | | | | | | | | | Azul Yeboah, | | | | | | [address] | | | | | | [place] | | | | | | [place] [address] | | | | | | [phone] | | | | | | | [...] | | | | | | [place] [address] | | | | | | [phone] | | | | | | | | +--------+ + + + + documented as of this encounter Visit Diagnoses Not on filedocumented in this encounter"
--- OUTSIDE RECORDS SUMMARY | ~2020-02-18 | XMS | Encounter Summary ---
Demographics + + + | Address | [address] | | | [place] [address] | + + + | Home Phone [...] Team Providers + +------+ + | Care Converter Operator Name | Role | Phone | [...] + | 04/16/ | Office | [facility] | Anthony Alvarado MD | Non-seasonal | | 2019 | Visit | [facility] [address] | [address] [place] | allergic rhinitis | | | | [address] [place] | [place], [place] | due to pollen | | | | [place] | [address] | (Primary Dx); | | | | [address] | [phone] | Deviated nasal | | | | [phone] | | septum | +--------+---------+ + + [...] Clinic Note For: Andrea Suh 28 y.o. [id number] On 04/16/2019, Andrea Suh was seen by [...] of having started traci rgy immunotherapy in [place]. She apparently started this in November 2018. [...] mouth. Once a week Cholecalciferol (VITAMIN D3) 67635 units TABS Take 1 tablet by mouth [...] her neck reveals no periparotid or cervical [id number] ASSESSMENT: Patient has severe temporomandibular joint dysfunction [...] | | | | | [place] [address] | | | | | | [phone] | | | | | | | | | | | | Julia Fisher, | | | | | | PT | | +--------+ + + + + | 02/18/ | Appointment | Rehabilitation | Erika Ernst, | | | 2019 | | | DO [address] [place] | | | | | | [place] [address] | | | | | | [phone] | | | | | | | | | | | | Genesis Ayon OT | | +--------+ + + + + | 02/25/ | Office | Primary Care | Erika Ernst, | | | 2019 | Visit | | DO [address] [place] | | | | | | [place] [address] | | | | | | [phone] | | | | | | | [...] | | | | | [place] [address] | | | | | | [phone] | | | | | | | | +--------+ + + + + | 02/27/ | Appointment | Radiology | Dhara, | | 2019 | | | [address] | | | | [address] [place], | | | | | | [place] [address] | | | | | | [phone] | | | | | | | | +--------+ + + + + | 03/04/ | Appointment | Rehabilitation | Genesis Ayon OT | | | 2019 | | | | | +--------+ + + + + | 03/09/ | Office | Orthopedic Surgery | Jeffrey Gandhi, | | | 2019 | Visit | | [address] | | | | | | [place] [address] | | | | | | [phone] | | | | | | | [...] [place] | | | | | | [address] | | | | | | [phone] | | | | | | | [...] | | | | | [place] [address] | | | | | | [phone] | | | | | | | | | | | | Azul Yeboah, | | | | | | MD [address] | | | | | | [place] | | | | | | [place] [address] | | | | | | [phone] | | | | | | | [...] | | | | | | [place] [address] | | | | | | [phone] | | | | | | | | +--------+ + + + + documented as of this encounter Visit Diagnoses + + | Diagnosis | + + | Non-seasonal allergic rhinitis due to pollen - Primary | + + | Deviated nasal septum | + + documented in this encounter"
--- OUTSIDE RECORDS SUMMARY | ~2020-02-18 | XMS | Encounter Summary ---
Demographics + + + | Address | [address] | | | [place] [address] | + + + | Home Phone [...] Providers + +------+ + | Care Physical Therapy Director Name | Role | Phone | [...] | [place], [place] | [place] [address] | | | | | [address] | [phone] | | | | | [phone] | | | +--------+ + + + [...] [address] | | | | | | [phone] | | | | | | | | | | | | Julia Fisher, | | | | | | PT | | +--------+ + + + + | 02/18/ | Appointment | Rehabilitation | Erika Ernst, | | | 2019 | | | DO [address] [place] | | | | | | [place] [address] | | | | | | [phone] | | | | | | | | | | | | Genesis Ayon OT | | +--------+ + + + + | 02/25/ | Office | Primary Care | Erika Ernst, | | | 2019 | Visit | | DO [address] | | | | | | [place] [address] | | | | | | [phone] | | | | | | | [...] | | | | | [place] [address] | | | | | | [phone] | | | | | | | | +--------+ + + + + | 02/27/ | Appointment | Radiology | Dhara, | | | 2019 | | | DWAINE [address] | | | | | | [address] [facility] [place], | | | | | | [place] [address] | | | | | | [phone] | | | | | | | [...] [place] | | | | | | [place] [address] | | | | | | [phone] | | | | | | | [...] [place] | | | | | | [address] | | | | | | [phone] | | | | | | | [...] | | | | | [place] [address] | | | | | | [phone] | | | | | | | | | | | | Azul Yeboah, | | | | | | MD [address] | | | | | | [place] [place] | | | | | | [place] [address] | | | | | | [phone] | | | | | | | [...] | | | | | | [place] [address] | | | | | | [phone] | | | | | | | | +--------+ + + + + documented as of this encounter Visit Diagnoses Not on filedocumented in this encounter"
--- OUTSIDE RECORDS SUMMARY | ~2020-02-18 | XMS | Encounter Summary ---
Demographics + + + | Address | [address] | | | [place] [address] | + + + | Home Phone [...] Team Providers + +------+ + | Care Receiver Setter Name | Role | Phone | [...] | | | [address] [place], [place] | [place] [address] | | | | | [address] | | | | | | [phone] | (Fax) | | +--------+ + + [...] | 04/12/20 | | | (VITAMIN D3) 98371 | mouth Once a week | tablet [...] | | | | | [place] [address] | | | | | | [phone] | | | | | | | | | | | | Julia Fisher, | | | | | | PT | | +--------+ + + + + | 02/18/ | Appointment | Rehabilitation | Erika Ernst, | | | 2019 | | | DO [address] | | | | | | [place] [address] | | | | | | [phone] | | | | | | | | | | | | Genesis Ayon OT | | +--------+ + + + + | 02/25/ | Office | Primary Care | Erika Ernst, | | | 2019 | Visit | | DO [address] | | | | | | [place] [address] | | | | | | [phone] | | | | | | | [...] | | | | | [place] [address] | | | | | | [phone] | | | | | | | | +--------+ + + + + | 02/27/ | Appointment | Radiology | Dhara, | | | 2019 | | | [address] | | | | | | 4TH [facility] [place], | | | | | | [place] [address] | | | | | | [phone] | | | | | | | [...] [address] | | | | | | [place] [address] | | | | | | [phone] | | | | | | | [...] [place] | | | | | | [address] | | | | | | [phone] | | | | | | | [...] | | | | | [place] [address] | | | | | | [phone] | | | | | | | | | | | | Azul Yeboah, | | | | | | MD [address] | | | | | | [place] | | | | | | [place] [address] | | | | | | [phone] | | | | | | | [...] | | | | | | [place] [address] | | | | | | [phone] | | | | | | | [...]
--- OUTSIDE RECORDS SUMMARY | ~2020-02-18 | XMS | Encounter Summary ---
Demographics + + + | Address | [address] | | | [place] [address] | + + + | Home Phone [...] Providers + +------+ + | Care Engineer Geophysical Laboratory Name | Role | Phone | + [...] [address] | [facility] [place] [address] | Essential | | | | [address] [place], | [phone] | hypertension; | | | | [place] [address] | | Moderate persistent | | | | [phone] | | asthma with acute | | [...] increa sed inhaler use TID per her barber apprentice and is on oral prednisone and tolerating [...] | | | | | [place] [address] | | | | | | [phone] | | | | | | | | | | | | Julia Fisher, | | | | | | PT | | +--------+ + + + + | 02/18/ | Appointment | Rehabilitation | Erika Ernst, | | | 2019 | | | DO [address] | | | | | | [place] [address] | | | | | | [phone] | | | | | | | | | | | | Genesis Ayon, OT | | +--------+ + + + + | 02/25/ | Office | Primary Care | rEika Ernst, | | | 2019 | Visit | | DO [address] | | | | | | [place] [address] | | | | | | [phone] | | | | | | | [...] | | | | | [place] [address] | | | | | | [phone] | | | | | | | | +--------+ + + + + | 02/27/ | Appointment | Radiology | Dhara, | | | 2019 | | | [address] | | | | | | 4TH [facility], | | | | | | [place] [address] | | | | | | [phone] | | | | | | | | +--------+ + + + + | 03/04/ | Appointment | Rehabilitation | Genesis Ayon OT | | | 2019 | | | | | +--------+ + + + + | 03/09/ | Office | Orthopedic Surgery | Jeffrey Gandhi, | | | 2019 | Visit | | MD [address] [facility] | | | | | | [place] [address] | | | | | | [phone] | | | | | | | [...] [place] | | | | | | [address] | | | | | | [phone] | | | | | | | [...] | | | | | [place] [address] | | | | | | [phone] | | | | | | | | | | | | Azul Yeboah, | | | | | | MD [address] | | | | | | [place] [place] | | | | | | [place] [address] | | | | | | [phone] | | | | | | | [...] | | | | | | [place] [address] | | | | | | [phone] | | | | | | | [...] + + | [place] [facility] | [address] | [place] | [phone] | | HOS[facility]ITAL [facility] | | [address] | | + + + + + [...] + + | [place] [facility] | [address] | [place] | [phone] | | HOSPITAL [facility]ORY | | [address] | | + + + + + documented in this encounter Visit Diagnoses + + | Diagnosis | + + | Iron deficiency - Primary Other disorders of iron metabolism | + + | Essential hypertension Unspecified essential hypertension | + + | Moderate persistent asthma with acute exacerbation | + + documented in this encounter
--- OUTSIDE RECORDS SUMMARY | ~2020-02-18 | XMS | Encounter Summary ---
Demographics + + + | Address | [address] | | | [place] [address] | + + + | Home Phone [...] Team Providers + +------+ + | Care Geography Teacher Name | Role | Phone | + +------+ + PCP | Unavailable | + +------+ + Encounter Details +--------+ + + + + | Date | Type | Department | Care Team | Description | +--------+ + + + + | 01/25/ | [facility] | Heike Rodriguez, | | | 2015 | Encounter | [facility] | FOOD COUNTER ATTENDANT [address] | | | | | CENTER [address] | [place] | | | | | [place] | [address] | | | | | [address] | | | | | | [phone] | | | +--------+ + + + [...] | | | | | [place] [address] | | | | | | [phone] | | | | | | | | | | | | Julia Fisher, | | | | | | PT | | +--------+ + + + + | 02/18/ | Appointment | Rehabilitation | Erika Ernst, | | | 2019 | | | DO [address] | | | | | | [place] [address] | | | | | | [phone] | | | | | | | | | | | | Genesis Ayon, OT | | +--------+ + + + + | 02/25/ | Office | Primary Care | Erika Ernst, | | | 2019 | Visit | | DO [address] | | | | | | [place] [address] | | | | | | [phone] | | | | | | | [...] | | | | | [place] [address] | | | | | | [phone] | | | | | | | | +--------+ + + + + | 02/27/ | Appointment | Radiology | Dhara, | | | 2019 | | | DWAINE Ross [address] | | | | | | 4TH [facility], | | | | | | [place] [address] | | | | | | [phone] | | | | | | | | +--------+ + + + + | 03/04/ | Appointment | Rehabilitation | Genesis Ayon OT | | | 2019 | | | | | +--------+ + + + + | 03/09/ | Office | Orthopedic Surgery | Jeffrey Gandhi, | | 2019 | Visit | | [address] | | | | | | [place] [address] | | | | | | [phone] | | | | | | | [...] [place] | | | | | | [address] | | | | | | [phone] | | | | | | | [...] | | | | | [place] [address] | | | | | | [phone] | | | | | | | | | | | | Azul Yeboah, | | | | | | MD [address] | | | | | | [place] | | | | | | [place] [address] | | | | | | [phone] | | | | | | | [...] | | | | | | [place] [address] | | | | | | [phone] | | | | | | | | +--------+ + + + + documented as of this encounter Visit Diagnoses Not on filedocumented in this encounter"
--- OUTSIDE RECORDS SUMMARY | ~2020-02-18 | XMS | Encounter Summary ---
Demographics + + + | Address | [address] | | | [place] [address] | + + + | Home Phone [...] Team Providers + +------+ + | Care Bargain Table Clerk Name | Role | Phone | [...] | | | | | | | [place] REPR | | | | | | | FOREARM | | | | | | | TEND/MUSC,EX | | | | | | | TEN,PRIM,EA | | | | | | | MN REPR | | | | | | | FOREARM | | | | | | | TEND/MUSC,EX | | | | | | | TEN,SECOND | | | | | | | MN REPR | | | | | | [...] | | [place], [place] | [place] [address] | | | | | [address] | [phone] | | | | | [phone] | | | +--------+ + + + [...] number, which will [facility] and ask for the furniture rental consultant orthopedic provider. Be sure to mention t hat you've had surgery recently. AttachmentsThe following attachments cannot be sent through Care Everywhere.After Your Surg matt: Discharge Instructions (Occitan)documented in this encounter Medications at Time of [...] | 02/29/20 | | | (VITAMIN D3) [address] | mouth Once a week | tablet [...] | | 2019 | | | DO [facility] | | | | | | [place] [address] | | | | | | [phone] | | | | | | | | | | | | Julia Fisher, | | | | | | PT | | +--------+ + + + + | 02/18/ | Appointment | Rehabilitation | Erika Ernst, | | | 2019 | | | DO [address] | | | | | | [place] [address] | | | | | | [phone] | | | | | | | | | | | | Genesis Ayon, SUSAN | | +--------+ + + + + | 02/25/ | Office | Primary Care | Erika Ernst, | | | 2019 | Visit | | DO [address] | | | | | | [place] [address] | | | | | | [phone] | | | | | | | [...] | | | | | [place] [address] | | | | | | [phone] | | | | | | | | +--------+ + + + + | 02/27/ | Appointment | Radiology | Dhara, | | | 2019 | | | [address] | | | | | | [address]TH [place], | | | | | | [place] [address] | | | | | | [phone] | | | | | | | [...] | | | | | [place] [address] | | | | | | [phone] | | | | | | | [...] [place] | | | | | | [address] | | | | | | [phone] | | | | | | | [...] | | | | | [place] [address] | | | | | | [phone] | | | | | | | | | | | | Azul Yeboah, | | | | | | MD [address] | | | | | | [place] | | | | | | [place] [address] | | | | | | [phone] | | | | | | | [...] | | | | | | [place] [address] | | | | | | [phone] | | | | | | | [...] + + | [place] [facility] | [address] | [place] | [phone] | | HOSPITAL [facility]ORY | | [address] | | + + + + + [...] Intravenous, PRN, Shivering, | | | Starting Mon03/20/19 at 1022, For | | | 2 doses, May Repeat once in 5 | | | min., Recovery/Phase I | | + +---+ | | | + +---+ | ondansetron (ZOFRAN) injection | | | 4 mg 4 mg, Intravenous, ONCE | | | PRN, Nausea, Starting Mon03/20/19 | | | at 1022, For 1 dose, | | | Recovery/Phase I | | + +---+ | | | + +---+ | promethazine (PHENERGAN) (IV | | | ONLY) injection 6.25-12.5 mg | | | 6.25-12.5 mg, Intravenous, EVERY | | | 15 MIN PRN, Nausea, Vomiting, Max | | | 25 mg, Starting Mon03/20/19 at | | | 1022, TAKE PRECAUTIONS [...]
--- OUTSIDE RECORDS SUMMARY | ~2020-02-18 | XMS | Encounter Summary ---
Demographics + + + | Address | [address] | | | [place] [address] | + + + | Home Phone [...] + +------+ + | Care Food Service Assistant Name | Role | Phone | [...] 01/06/ | Telephone | [place] [facility] | Erika Ernst, | Medication Question | | 2019 | | [facility] | DO [address] | | | | | MEDICAL CLINIC [address] | [place] [address] | | | | | [address] [facility], | [phone] | | | | | [place] [address] | | | | | | [phone] | | | +--------+ + + + [...] | | | | | [place] [address] | | | | | | [phone] | | | | | | | | | | | | Julia Fisher, | | | | | | PT | | +--------+ + + + + | 02/18/ | Appointment | Rehabilitation | Erika Ernst, | | | 2019 | | | DO [address] | | | | | | [place] [address] | | | | | | [phone] | | | | | | | | | | | | Genesis Ayon OT | | +--------+ + + + + | 02/25/ | Office | Primary Care | Erika Ernst, | | | 2019 | Visit | | DO [address] | | | | | | [place] [address] | | | | | | [phone] | | | | | | | [...] | | | | | | [place] [address] | | | | | | [phone] | | | | | | | | +--------+ + + + + | 02/27/ | Appointment | Radiology | Dhara, | | | 2019 | | | D[address]INE [address] | | | | | | [facility], | | | | | | [place] [address] | | | | | | [phone] | | | | | | | [...] [place] | | | | | | [place] [address] | | | | | | [phone] | | | | | | | [...] [place] | | | | | | [address] | | | | | | [phone] | | | | | | | [...] | | | | | [place] [address] | | | | | | [phone] | | | | | | | | | | | | zAul Yeboah, | | | | | | MD [address] | | | | | | [place] | | | | | | [place] [address] | | | | | | [phone] | | | | | | | [...] | | | | | | [place] [address] | | | | | | [phone] | | | | | | | | +--------+ + + + + documented as of this encounter Visit Diagnoses Not on filedocumented in this encounter"
--- OUTSIDE RECORDS SUMMARY | ~2020-02-18 | XMS | Encounter Summary ---
Demographics + + + | Address | [address] | | | [place] [address] | + + + | Home Phone [...] Team Providers + +------+ + | Care Finished Goods Stock Clerk Name | Role | Phone [...] Refill | | 2019 | | [facility] | DO [address] | Assistance | | | | MEDICAL CLINIC [address] | [place] [address] | | | | | [address] [place], | [phone] | | | | | [place] [address] | | | | | | [phone] | | | +--------+ + + + [...] | | | | | [place] [address] | | | | | | [phone] | | | | | | | | | | | | Julia Fisher, | | | | | | PT | | +--------+ + + + + | 02/18/ | Appointment | Rehabilitation | Erika Ernst, | | | 2019 | | | DO [address] | | | | | | [place] [address] | | | | | | [phone] | | | | | | | | | | | | Genesis Ayon OT | | +--------+ + + + + | 02/25/ | Office | Primary Care | Erika Ernst, | | | 2019 | Visit | | DO [address] | | | | | | [place] [address] | | | | | | [phone] | | | | | | | [...] | | | | | [place] [address] | | | | | | [phone] | | | | | | | | +--------+ + + + + | 02/27/ | Appointment | Radiology | Dhara, | | | 2019 | | | [address] | | | | | | 4TH [facility], | | | | | | [place] [address] | | | | | | [phone] | | | | | | | | +--------+ + + + + | 03/04/ | Appointment | Rehabilitation | Genesis Ayon OT | | | 2019 | | | | | +--------+ + + + + | 03/09/ | Office | Orthopedic Surgery | Jeffrey Gandhi, | | 2019 | Visit | | [address] | | | | | | [place] [address] | | | | | | [phone] | | | | | | | [...] 03/19/ | Office | Obstetrics and | Emliy Avery | | 2019 | Visit | Gynecology | DO Jackelyn Garcia | | | | | | [address] | | | | | | [place] | | | | | | [address] | | | | | | [phone] | | | | | | | [...] | | | | | [place] [address] | | | | | | [phone] | | | | | | | | | | | | Azul Yeboah, | | | | | | MD [address] | | | | | | [place] | | | | | | [place] [address] | | | | | | [phone] | | | | | | | [...] | | | | | | [place] [address] | | | | | | [phone] | | | | | | | | +--------+ + + + + documented as of this encounter Visit Diagnoses Not on filedocumented in this encounter"
--- OUTSIDE RECORDS SUMMARY | ~2020-02-18 | XMS | Encounter Summary ---
Demographics + + + | Address | [address] | | | [place] [address] | + + + | Home Phone [...] Team Providers + +------+ + | Care Zoning Administrator Name | Role | Phone | [...] deficiency | | 2019 | Visit | [facility] | DO [address] | (Primary Dx); | | | | MEDICAL CLINIC [address] | [place] [address] | Essential | | | | [address] [place], | [phone] | hypertension; Asthma | | | | [place] [address] | | due to | | | | [phone] | | environmental | | | | [...] | | | | | [place] [address] | | | | | | [phone] | | | | | | | | | | | | Julia Fisher, | | | | | | PT | | +--------+ + + + + | 02/18/ | Appointment | Rehabilitation | Erika Ernst, | | | 2019 | | | DO [address] | | | | | | [place] [address] | | | | | | [phone] | | | | | | | | | | | | Genesis Ayon OT | | +--------+ + + + + | 02/25/ | Office | Primary Care | Erika Ernst, | | | 2019 | Visit | | DO [address] | | | | | | [place] [address] | | | | | | [phone] | | | | | | | [...] | | | | | [place] [address] | | | | | | [phone] | | | | | | | | +--------+ + + + + | 02/27/ | Appointment | Radiology | Dhara, | | | 2019 | | | [address] | | | | | | 4TH [facility], | | | | | | [place] [address] | | | | | | [phone] | | | | | | | [...] | | | | | [place] [address] | | | | | | [phone] | | | | | | | [...] [place] | | | | | | [address] | | | | | | [phone] | | | | | | | [...] | | | | | [place] [address] | | | | | | [phone] | | | | | | | | | | | | Azul Yeboah, | | | | | | MD [address] | | | | | | [place] | | | | | | [place] [address] | | | | | | [phone] | | | | | | | [...] | | | | | | [place] [address] | | | | | | [phone] | | | | | | | [...] + | [place] [facility] | [address] | [place] | [phone] | | HOSPITAL [facility]ORY | | [address] | | + + + + + [...]
--- OUTSIDE RECORDS SUMMARY | ~2020-02-18 | XMS | Encounter Summary ---
Demographics + + + | Address | [address] | | | [place] [address] | + + + | Home Phone [...] Providers + +------+ + | Care Product Manager E Commerce Name | Role | Phone | + +------+ + PCP | Unavailable | + +------+ + Encounter Details +--------+ + + + + | Date | Type | Department | Care Team | Description | +--------+ + + + + | 12/10/ | [facility] | Caro Zendejas | | | 2013 | Encounter | [facility] | [place], [place] [address] | | | | | MEDICAL CLINIC [address] | [facility], [place] | | | | | 4TH [facility], | [address] | | | | | [place] [address] | [phone] | | | | | [phone] | | | +--------+ + + + [...] | | | | | [place] [address] | | | | | | [phone] | | | | | | | [...] [address] | | | | | | [phone] | | | | | | | | | | | | Genesis Ayon, OT | | +--------+ + + + + | 02/25/ | Office | Primary Care | Erika Ernst, | | | 2019 | Visit | | DO [address] | | | | | | [place] [address] | | | | | | [phone] | | | | | | | [...] | | | | | [place] [address] | | | | | | [phone] | | | | | | | | +--------+ + + + + | 02/27/ | Appointment | Radiology | Dhara, | | | 2019 | | | [address] | | | | | | 4TH [facility], | | | | | | [place] [address] | | | | | | [phone] | | | | | | | | +--------+ + + + + | 03/04/ | Appointment | Rehabilitation | Genesis Ayon OT | | | 2019 | | | | | +--------+ + + + + | 03/09/ | Office | Orthopedic Surgery | Jeffrey Gnadhi, | | | 2019 | Visit | | [address] | | | | | | [place] [address] | | | | | | [phone] | | | | | | | [...] [place] | | | | | | [address] | | | | | | [phone] | | | | | | | [...] [address] | | | | | | [phone] | | | | | | | | | | | | Azul Yeboah, | | | | | | MD [address] | | | | | | [place] | | | | | | [place] [address] | | | | | | [phone] | | | | | | | [...] | | | | | | [place] [address] | | | | | | [phone] | | | | | | | | +--------+ + + + + documented as of this encounter Visit Diagnoses Not on filedocumented in this encounter"
--- OUTSIDE RECORDS SUMMARY | ~2020-02-18 | XMS | Encounter Summary ---
Demographics + + + | Address | [address] | | | [place] [address] | + + + | Home Phone [...] Team Providers + +------+ + | Care Cookie Mixer Helper Name | Role | Phone | [...] | Orthopedic | Diagnoses | Daxa, | Rfeida, | | | Services | Surgery | Sprain of | Emily E, DPM | Haseeb Xiong, | | | Required | | deltoid | [address] | [address] | | | | | ligament of | [address] | [address] | | | | | left ankle, | [place], | [address] | | | | | sequela | [place] [address] | [place], [place] | | | | | Procedures | Phone: | [address] | | | | | OUTGOING | [phone] | Phone: | | | | | | Fax: | [phone] | | | | | | [phone] | Fax: | | | | | | | [phone] | +--------+ + + + + + Reason for Visit + + + | Reason | Comments | + + + | Follow-up | L ANKLE SPRAIN | + + + Encounter Details +--------+---------+ + + + | Date | Type | Department | Care Team | Description | +--------+---------+ + + + | 06/06/ | Office | [place] [facility] | Emily Mittal DPM | Sprain of deltoid | | 2019 | Visit | [facility] | [address] [place] | ligament of left | | | | [address] [place] [address] | [place], [place] | ankle, sequela | | | | [place], [place] | [address] | (Primary Dx) | | | | [address] | | | | | | [phone] | | | +--------+---------+ + + + [...] encounter Progress Notes Emily Mittal DPM - 06/06/2019 2:30 PM PDT [facility] Note Patient Name: Andrea Suh | Age: 29 y.o. | : 1990 | Medical Record Number:[id number] | Author: Emily Mittal DPM | Date [...] her a number of years ago was pr esteban in the waiting room. She denies that [...] ankle, sequela S93.422S 905.7 Orthopedic Surgery, Ext [facility] Referral 845.01 Treatment and Plan of Care [...] deemed to be medically stationary by the [facility] orthopedic surgeon and by myself. I have recommended to the patient that she seek another opinion from the [facility] clinic in [facility]. I've re commended that she obtain her medical records in addition to her x-rays and MRI to allow for evaluation by another set of eyes in the hope that an overall more positive outcome for the patient can be reached. I expressed concern for this patient and believe that she may find resolution with a fourth opinion. I spent 15 minutes [id number]-[id number]-bmxo with the patient, with over 50% spent [...] E.C.U. Tendon; Surgeon: Inocencio Noriega MD; Location: [facility] SURGERY RIGHT KIDNER PROCEDURE 01/20/2016 Surgeon: Fani Mahajan MD; Location: [facility] TENDON RELEASE TONSILLECTOMY WISDOM TOOTH EXTRACTION Family History Problem Relation Age of Onset Other (see comment) Mother gallbladder disease Diabetes Mother Heart disease Mother Hypertension Father Other (see comment) Father arrhymthmia Breast cancer Sister Breast cancer Maternal Grandmother Heart attack Maternal Aunt [place] Hypertension Maternal Uncle Social History Socioeconomic History [...] and their vital signs recorded by my technical administrative assistant today, a s found in this chart note. Electronically signed by: Emily Mittal DPM 12/06/2018 at 16:19 Note: Part of this report was transcribed using voice recognition software. Every effort wa s made to ensure accuracy. However, inadvertent computerized torch shearer errors may be pre sent. CC: Erika [...] | | | | | [place] [address] | | | | | | [phone] | | | | | | | | | | | | Julia Fisher, | | | | | | PT | | +--------+ + + + + | 02/18/ | Appointment | Rehabilitation | Erika Ernst, | | 2019 | | | DO [address] [place] | | | | | | [place] [address] | | | | | | [phone] | | | | | | | | | | | | Genesis Ayon, SUSAN | | +--------+ + + + + | 02/25/ | Office | Primary Care | Erika Ernst, | | | 2019 | Visit | | DO [address] [place] [address] | | | | | | [place] [address] | | | | | | [phone] | | | | | | | [...] | | | | | [place] [address] | | | | | | [phone] | | | | | | | | +--------+ + + + + | 02/27/ | Appointment | Radiology | Dhara, | | 2019 | | | [address] | | | | | | [address] [place], | | | | | | [place] [address] | | | | | | [phone] | | | | | | | [...] | | | | | [place] [address] | | | | | | [phone] | | | | | | | [...] [place] | | | | | | [address] | | | | | | [place] | | | | | | [address] | | | | | | [phone] | | | | | | | [...] | | | | | [place] [address] | | | | | | [phone] | | | | | | | | | | | | Azul Yeboah, | | | | | | [address] | | | | | | [address] [place] | | | | | | [place] [address] | | | | | | [phone] | | | | | | | [...] | | | | | | [place] [address] | | | | | | [phone] | | | | | | | [...]
--- OUTSIDE RECORDS SUMMARY | ~2020-02-18 | XMS | Encounter Summary ---
Demographics + + + | Address | [address] | | | [place] [address] | + + + | Home Phone [...] Team Providers + +------+ + | Care Ammonium Nitrate Crystallizer Name | Role | Phone | + [...] | | | | [place], [place] | [address] | | | | | [address] | [phone] | | | | | [phone] | | | +--------+ + + + [...] | | | | | [place] [address] | | | | | | [phone] | | | | | | | | | | | | Julia Fisher, | | | | | | PT | | +--------+ + + + + | 02/18/ | Appointment | Rehabilitation | Erika Ernst, | | | 2019 | | | DO [address] | | | | | | [place] [address] | | | | | | [phone] | | | | | | | | | | | | Geneiss Ayon, OT | | +--------+ + + + + | 02/25/ | Office | Primary Care | Erika Ernst, | | | 2019 | Visit | | DO [address] | | | | | | [place] [address] | | | | | | [phone] | | | | | | | [...] | | | | | [place] [address] | | | | | | [phone] | | | | | | | | +--------+ + + + + | 02/27/ | Appointment | Radiology | Dhara, | | | 2019 | | | [address] Ross [address] | | | [address] [place], | | | | | | [place] [address] | | | | | | [phone] | | | | | | | | +--------+ + + + + | 03/04/ | Appointment | Rehabilitation | Genesis Ayon OT | | | 2019 | | | | | +--------+ + + + + | 03/09/ | Office | Orthopedic Surgery | Jeffrey Gandhi, | | | 2019 | Visit | | [place] [address] [facility] | | | | | | [place] [address] | | | | | | [phone] | | | | | | | [...] [place] | | | | | | [address] | | | | | | [phone] | | | | | | | [...] | | | | | [place] [address] | | | | | | [phone] | | | | | | | | | | | | Azul Yeboah, | | | | | | MD [address] | | | | | | [place] | | | | | | [place] [address] | | | | | | [phone] | | | | | | | [...] | | | | | | [place] [address] | | | | | | [phone] | | | | | | | | +--------+ + + + + documented as of this encounter Visit Diagnoses Not on filedocumented in this encounter"
--- OUTSIDE RECORDS SUMMARY | ~2020-02-18 | XMS | Encounter Summary ---
Demographics + + + | Address | [address] | | | [place] [address] | + + + | Home Phone [...] Providers + +------+ + | Care Belt Weaver Name | Role | Phone | + +------+ + PCP | Unavailable | + +------+ + Encounter Details +--------+ + + + + | Date | Type | Department | Care Team | Description | +--------+ + + + + | 03/23/ | [facility] | [place] [facility] | Erika Ernst, | | | 2016 | Encounter | [facility] | DO [address] | | | | | MEDICAL CLINIC [address] | [place] [address] | | | | | [address] [place], | [phone] | | | | | [place] [address] | | | | | | [phone] | | | +--------+ + + + [...] 2019 | | | DO [facility] | | | | | | [place], [place] [address] | | | | | | [phone] | | | | | | | | | | | | Julia Fisher, | | | | | | PT | | +--------+ + + + + | 02/18/ | Appointment | Rehabilitation | Erika Ernst, | | | 2019 | | | DO [address] | | | | | | [place] [address] | | | | | | [phone] | | | | | | | | | | | | Genesis Ayon, SUSAN | | +--------+ + + + + | 02/25/ | Office | Primary Care | Erika Ernst, | | | 2019 | Visit | | DO [address] | | | | | | [place] [address] | | | | | | [phone] | | | | | | | [...] | | | | | [place] [address] | | | | | | [phone] | | | | | | | | +--------+ + + + + | 02/27/ | Appointment | Radiology | Dhara, | | 2019 | | | D[address] | | | | | | [address] [facility] [place], | | | | | | [place] [address] | | | | | | [phone] | | | | | | | [...] | | | | | [place] [address] | | | | | | [phone] | | | | | | | [...] [place] | | | | | | [address] | | | | | | [phone] | | | | | | | [...] | | | | | [place] [address] | | | | | | [phone] | | | | | | | | | | | | Azul Yeboah, | | | | | | MD [address] | | | | | | [place] | | | | | | [place] [address] | | | | | | [phone] | | | | | | | [...] | | | | | | [place] [address] | | | | | | [phone] | | | | | | | | +--------+ + + + + documented as of this encounter Visit Diagnoses Not on filedocumented in this encounter"
--- OUTSIDE RECORDS SUMMARY | ~2020-02-18 | XMS | Encounter Summary ---
Demographics + + + | Address | [address] | | | [place] [address] | + + + | Home Phone [...] Providers + +------+ + | Care Residential Caregiver Name | Role | Phone | [...] [address] | | | | | [place] [address] | | | | | | [phone] | | | +--------+ + + + [...] | | | | | [place] [address] | | | | | | [phone] | | | | | | | | | | | | Julia Fisher, | | | | | | PT | | +--------+ + + + + | 02/18/ | Appointment | Rehabilitation | Erika Ernst, | | | 2019 | | | DO [address] | | | | | | [place] [address] | | | | | | [phone] | | | | | | | | | | | | Genesis Ayon, OT | | +--------+ + + + + | 02/25/ | Office | Primary Care | Erika Ernst, | | | 2019 | Visit | | DO [address] | | | | | | [place] [address] | | | | | | [phone] | | | | | | | [...] | | | | | [place] [address] | | | | | | [phone] | | | | | | | | +--------+ + + + + | 02/27/ | Appointment | Radiology | Dhara, | | | 2019 | | | DWA[address] | | | | | | 4TH [facility], | | | | | | [place] [address] | | | | | | [phone] | | | | | | | | +--------+ + + + + | 03/04/ | Appointment | Rehabilitation | Genesis Ayon OT | | | 2019 | | | | | +--------+ + + + + | 03/09/ | Office | Orthopedic Surgery | Jeffrey Gandhi, | | | 2019 | Visit | | [address] [facility] | | | | | | [place] [address] | | | | | | [phone] | | | | | | | [...] [place] | | | | | | [address] | | | | | | [phone] | | | | | | | [...] | | | | | [place] [address] | | | | | | [phone] | | | | | | | | | | | | Azul Yeboah, | | | | | | MD [address] | | | | | | [place] | | | | | | [place] [address] | | | | | | [phone] | | | | | | | [...] | | | | | | [place] [address] | | | | | | [phone] | | | | | | | | +--------+ + + + + documented as of this encounter Visit Diagnoses Not on filedocumented in this encounter"
--- OUTSIDE RECORDS SUMMARY | ~2020-02-18 | XMS | Encounter Summary ---
Demographics + + + | Address | [address] | | | [place] [address] | + + + | Home Phone [...] Team Providers + +------+ + | Care Bandoleer Straightener Stamper Name | Role | Phone | + [...] Refill | | 2019 | | [facility] | [address] | | | | | MEDICAL CLINIC [address] | [place] [address] | | | | | [address] [place], | [phone] | | | | | [place] [address] | | | | | | [phone] | | | +--------+ + + + [...] | | | | | [place] [address] | | | | | | [phone] | | | | | | | | | | | | Julia Fisher, | | | | | | PT | | +--------+ + + + + | 02/18/ | Appointment | Rehabilitation | Erika Ernst, | | | 2019 | | | DO [address] | | | | | | [place] [address] | | | | | | [phone] | | | | | | | | | | | | Genesis Ayon OT | | +--------+ + + + + | 02/25/ | Office | Primary Care | Erika Ernst, | | | 2019 | Visit | | DO [address] | | | | | | [place] [address] | | | | | | [phone] | | | | | | | [...] | | | | | [place] [address] | | | | | | [phone] | | | | | | | | +--------+ + + + + | 02/27/ | Appointment | Radiology | Dhara, | | | 2019 | | | [address] | | | | | | [address]TH [place], | | | | | | [place] [address] | | | | | | [phone] | | | | | | | [...] [place] | | | | | | [place] [address] | | | | | | [phone] | | | | | | | [...] [place] | | | | | | [address] | | | | | | [phone] | | | | | | | [...] | | | | | [place] [address] | | | | | | [phone] | | | | | | | | | | | | Azul Yeboah, | | | | | | MD [address] | | | | | | [place] | | | | | | [place] [address] | | | | | | [phone] | | | | | | | [...] | | | | | | [place] [address] | | | | | | [phone] | | | | | | | | +--------+ + + + + documented as of this encounter Visit Diagnoses Not on filedocumented in this encounter"
--- OUTSIDE RECORDS SUMMARY | ~2020-02-18 | XMS | Encounter Summary ---
Demographics + + + | Address | [address] | | | [place] [address] | + + + | Home Phone [...] + +------+ + | Care Quality Assurance Auditor Name | Role | Phone | [...] CLINIC [address] | [place] [address] | Fatigue, unspecified | | | | [address] [place], | [phone] | type; Acute | | | | [place] [address] | | pharyngitis, | | | | [phone] | | unspecified etiology | +--------+---------+ + [...] | | | | | [place] [address] | | | | | | [phone] | | | | | | | | | | | | Julia Fisher, | | | | | | PT | | +--------+ + + + + | 02/18/ | Appointment | Rehabilitation | Erika Ernst, | | | 2019 | | | DO [address] | | | | | | [place] [address] | | | | | | [phone] | | | | | | | | | | | | Genesis Ayon OT | | +--------+ + + + + | 02/25/ | Office | Primary Care | Erika Ernst, | | | 2019 | Visit | | DO [address] | | | | | | [place] [address] | | | | | | [phone] | | | | | | | [...] | | | | | [place] [address] | | | | | | [phone] | | | | | | | | +--------+ + + + + | 02/27/ | Appointment | Radiology | Dhara, | | | 2019 | | | DWAINE Ross [address] | | | | [address] [place], | | | | | | [place] [address] | | | | | | [phone] | | | | | | | | +--------+ + + + + | 03/04/ | Appointment | Rehabilitation | Genesis Ayon OT | | | 2019 | | | | | +--------+ + + + + | 03/09/ | Office | Orthopedic Surgery | Jeffrey Gandhi, | | | 2019 | Visit | | [place] [address] [facility] | | | | | | [place] [address] | | | | | | [phone] | | | | | | | [...] [place] | | | | | | [address] | | | | | | [phone] | | | | | | | [...] | | | | | [place] [address] | | | | | | [phone] | | | | | | | | | | | | Azul Yeboah, | | | | | | MD [address] | | | | | | [place] | | | | | | [place] [address] | | | | | | [phone] | | | | | | | [...] | | | | | | [place] [address] | | | | | | [phone] | | | | | | | | +--------+ + + + + documented as of this encounter Results Mononucleosis Screen (06/11/2019 4:56 PM PDT) + + + + + + | Component | Value | Ref Range | Performed | Pathologist | | | | | At | Signature | + + + + + + | Dukes Screen | Negative | Negative | [place] [...] + + | [place] [facility] | [address] | [place] | [phone] | | [facility] | | [address] | | + + + + + [...] + + | [place] [facility] | [address] | [place] | [phone] | | [facility] | | [address] | | | MEDICAL C[facility] LAB | | | | + + + + + documented in this encounter Visit Diagnoses + + | Diagnosis | + + | Acute sore throat - Primary | + + | Fatigue, unspecified type | + + | Acute pharyngitis, unspecified etiology | + + documented in this encounter
--- OUTSIDE RECORDS SUMMARY | ~2020-02-18 | XMS | Encounter Summary ---
Demographics + + + | Address | [address] | | | [place] [address] | + + + | Home Phone [...] Providers + +------+ + | Care Non Ferrous Material Handler Name | Role | Phone | + +------+ + | Erika Ernst DO | PCP | | + +------+ + Encounter Details +--------+ + + + + | Date | Type | Department | Care Team | Description | +--------+ + + + + | 02/11/ | Orders Only | [place] [facility] | Luis Nichole MD | | | 2019 | | [facility] | [address] [place] | | | | | CLINIC [address] | [place], [place] | | | | | [address] [place], | [address] | | | | | [place] [address] | | | | | | [phone] | | | +--------+ + + + [...] | 2019 | | | DO [address] | | | | | | [place] [address] | | | | | | [phone] | | | | | | | | | | | | Julia Fisher, | | | | | | PT | | +--------+ + + + + | 02/18/ | Appointment | Rehabilitation | Erika Ernst, | | | 2019 | | | DO [address] | | | | | | [place] [address] | | | | | | [phone] | | | | | | | | | | | | Genesis Ayon OT | | +--------+ + + + + | 02/25/ | Office | Primary Care | Erika Ernst, | | | 2019 | Visit | | DO [address] | | | | | | [place] [address] | | | | | | [phone] | | | | | | | [...] | | | | | [place] [address] | | | | | | [phone] | | | | | | | | +--------+ + + + + | 02/27/ | Appointment | Radiology | Dhara, | | | 2019 | | | DWAINE [address] | | | | | | 4TH [facility] [place], | | | | | | [place] [address] | | | | | | [phone] | | | | | | | [...] | | | | | [place] [address] | | | | | | [phone] | | | | | | | [...] [place] | | | | | | [address] | | | | | | [phone] | | | | | | | [...] | | | | | [place] [address] | | | | | | [phone] | | | | | | | | | | | | Azul Yeboah, | | | | | | MD [address] | | | | | | [place] | | | | | | [place] [address] | | | | | | [phone] | | | | | | | [...] | | | | | | [place] [address] | | | | | | [phone] | | | | | | | | +--------+ + + + + documented as of this encounter Visit Diagnoses Not on filedocumented in this encounter"
--- OUTSIDE RECORDS SUMMARY | ~2020-02-18 | XMS | Encounter Summary ---
Demographics + + + | Address | [address] | | | [place] [address] | + + + | Home Phone [...] Providers + +------+ + | Care Clerical Investigator Name | Role | Phone | [...] LABS | | 2019 | | [facility] | DO [address] | | | | | MEDICAL CLINIC [address] | [place] [address] | | | | | [address] [place], | [phone] | | | | | [place] [address] | | | | | | [phone] | | | +--------+ + + + [...] | | | | | [place] [address] | | | | | | [phone] | | | | | | | | | | | | Julia Fisher, | | | | | | PT | | +--------+ + + + + | 02/18/ | Appointment | Rehabilitation | Erika Ernst, | | | 2019 | | | DO [address] | | | | | | [place] [address] | | | | | | [phone] | | | | | | | | | | | | Genesis Ayon OT | | +--------+ + + + + | 02/25/ | Office | Primary Care | Erika Ernst, | | | 2019 | Visit | | DO [address] | | | | | | [place] [address] | | | | | | [phone] | | | | | | | [...] | | | | | [place] [address] | | | | | | [phone] | | | | | | | | +--------+ + + + + | 02/27/ | Appointment | Radiology | Dhara, | | | 2019 | | | [address]INE [address] | | | | | | [address]TH [place], | | | | | | [place] [address] | | | | | | [phone] | | | | | | | [...] [place] | | | | | | [place] [address] | | | | | | [phone] | | | | | | | [...] [place] | | | | | | [address] | | | | | | [phone] | | | | | | | [...] | | | | | [place] [address] | | | | | | [phone] | | | | | | | | | | | | Azul Yeboah, | | | | | | MD [address] | | | | | | [place] | | | | | | [place] [address] | | | | | | [phone] | | | | | | | [...] | | | | | | [place] [address] | | | | | | [phone] | | | | | | | | +--------+ + + + + documented as of this encounter Visit Diagnoses Not on filedocumented in this encounter"
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
--- OUTSIDE RECORDS SUMMARY | ~2020-02-18 | XMS | Encounter Summary ---
Demographics + + + | Address | [address] | | | [place] [address] | + + + | Home Phone [...] Team Providers + +------+ + | Care Extrusion Die Repair Manager Name | Role | Phone | [...] syndrome on | [place], | [place], | | | | | right | [place] [address] | [place] [address] | | | | | | Phone: | Phone: | | | | | | [phone] | [phone] | | | | | | Fax: | Fax: | | | | | | [phone] | [phone] | + + + + + + + Evaluate & Treat (Routine) + + + + + + + | Status | Reason | Specialty | Diagnoses / | Referred By | Referred To | | | | | Procedures | Contact | Contact | + + + + + + + | Authorizatio | Specialty | Rehabilitatio | Diagnoses | Klevre, | Cc Wgr | | n not | Services | n | Carpal | Erika A, DO | Therapy Ot | | Required | Required | | tunnel | [address] | [address] | | | | | syndrome on | [place], | [place], | | | | | right | [place] [address] | [place] [address] | | | | | Procedures | Phone: | Phone: | | | | | OT EVAL AND | [phone] | [phone] | | | | | TREAT | Fax: | Fax: | | | | | | [phone] | [phone] | + + + + + + [...] | | | | apnea) | [place] [address] | [address] [place] | | | | | | Phone: | [place], [place] | | | | | | [phone] | [address] Phone: | | | | | | Fax: | [phone] | | | | | | [phone] | Fax: | | | | | | | [phone] | + + + + + + [...] | MEDICAL CLINIC [address] | [place] [address] | allergies (Primary | | | | [address] [place], | [phone] | Dx); Carpal tunnel | | | | [place] [address] | | syndrome on right; | | | | [phone] | | ALVAREZ (obstructive | | | [...] to PT and Dr Brenden Blackwood at [facility]. Also she states her closing manager Dr Pruett wanted her to see me [...] | | | | | [place] [address] | | | | | | [phone] | | | | | | | | | | | | Julia Fisher, | | | | | | PT | | +--------+ + + + + | 02/18/ | Appointment | Rehabilitation | Erika Ernst, | | | 2019 | | | DO [address] [place] | | | | | | [place] [address] | | | | | | [phone] | | | | | | | | | | | | Genesis Ayon OT | | +--------+ + + + + | 02/25/ | Office | Primary Care | Erika Ernst, | | | 2019 | Visit | | DO [address] | | | | | | [place] [address] | | | | | | [phone] | | | | | | | [...] | | | | | [place] [address] | | | | | | [phone] | | | | | | | | +--------+ + + + + | 02/27/ | Appointment | Radiology | Dhara, | | | 2019 | | | [address] | | | | | | [address] [place], | | | | | | [place] [address] | | | | | | [phone] | | | | | | | [...] | | | | [place] [address] | | | | | | [phone] | | | | | | | [...] [place] | | | | | | [address] | | | | | | [phone] | | | | | | | [...] | | | | | [place] [address] | | | | | | [phone] | | | | | | | | | | | | Azul Yeboah, | | | | | | MD [address] | | | | | | [place] | | | | | | [place] [address] | | | | | | [phone] | | | | | | | [...] | | | | | | [place] [address] | | | | | | [phone] | | | | | | | [...] + + | [place] [facility] | [address] | [place], [place] | [phone] | | [facility] | | [address] | | | MEDICAL [facility] LAB | [...]
--- OUTSIDE RECORDS SUMMARY | ~2020-02-18 | XMS | Encounter Summary ---
Demographics + + + | Address | [address] | | | [place] [address] | + + + | Home Phone [...] Team Providers + +------+ + | Care Office Services Representative Name | Role | Phone | [...] | | MEDICAL CLINIC [address] | [place] [address] | Essential | | | | [address] [place], | [phone] | hypertension; | | | | [place] [address] | | Moderate persistent | | | | [phone] | | asthma with acute | | [...] increa sed inhaler use TID per her court orderly and is on oral prednisone and tolerating [...] | | | | | [place] [address] | | | | | | [phone] | | | | | | | | | | | | Julia Fisher, | | | | | | PT | | +--------+ + + + + | 02/18/ | Appointment | Rehabilitation | Erika Ernst, | | | 2019 | | | DO [address] [place] | | | | | | [place] [address] | | | | | | [phone] | | | | | | | | | | | | Genesis Ayon, OT | | +--------+ + + + + | 02/25/ | Office | Primary Care | Erika Ernst, | | | 2019 | Visit | | DO [address] | | | | | | [place] [address] | | | | | | [phone] | | | | | | | [...] | | | | | [place] [address] | | | | | | [phone] | | | | | | | | +--------+ + + + + | 02/27/ | Appointment | Radiology | Dhara, | | | 2019 | | | DWAINE [address] | | | | | | [address] [facility], | | | | | | [place] [address] | | | | | | [phone] | | | | | | | | +--------+ + + + + | 03/04/ | Appointment | Rehabilitation | Genesis Ayon OT | | | 2019 | | | | | +--------+ + + + + | 03/09/ | Office | Orthopedic Surgery | Jeffrey Gandhi, | | | 2019 | Visit | | MD [address] [facility] | | | | | | [place] [address] | | | | | | [phone] | | | | | | | [...] [place] | | | | | | [address] | | | | | | [phone] | | | | | | | [...] | | | | | [place] [address] | | | | | | [phone] | | | | | | | | | | | | Azul Yeboah, | | | | | | MD [address] | | | | | | [address] [place] | | | | | | [place] [address] | | | | | | [phone] | | | | | | | [...] | | | | | | [place] [address] | | | | | | [phone] | | | | | | | [...] + + | [place] [facility] | [address] | [place] | [phone] | | [facility] | | [address] | | + + + + + [...] + + | [place] [facility] | [address] | [place] | [phone] | | [facility] | | [address] | | + + + + + documented in this encounter Visit Diagnoses + + | Diagnosis | + + | Iron deficiency - Primary Other disorders of iron metabolism | + + | Essential hypertension Unspecified essential hypertension | + + | Moderate persistent asthma with acute exacerbation | + + documented in this encounter
--- OUTSIDE RECORDS SUMMARY | ~2020-02-18 | XMS | Encounter Summary ---
Demographics + + + | Address | [address] | | | [place] [address] | + + + | Home Phone [...] Team Providers + +------+ + | Care Graphics Manager Name | Role | Phone | + +------+ + PCP | Unavailable | + +------+ + Encounter Details +--------+ + + + + | Date | Type | Department | Care Team | Description | +--------+ + + + + | 06/18/ | [facility] | Heike Rodriguez, | | | 2013 | Encounter | [facility] | TELEVISION NEWS PRODUCER [address] | | | | | CENTER [address] | [place] | | | | | [place] | [address] | | | | | [address] | | | | | | [phone] | | | +--------+ + + + [...] | | | | | [place] [address] | | | | | | [phone] | | | | | | | | | | | | Julia Fisher, | | | | | | PT | | +--------+ + + + + | 02/18/ | Appointment | Rehabilitation | Erika Ernst, | | | 2019 | | | DO [address] | | | | | | [place] [address] | | | | | | [phone] | | | | | | | | | | | | Genesis Ayon, OT | | +--------+ + + + + | 02/25/ | Office | Primary Care | Erika Ernst, | | | 2019 | Visit | | DO [address] | | | | | | [place] [address] | | | | | | [phone] | | | | | | | [...] | | | | | [place] [address] | | | | | | [phone] | | | | | | | | +--------+ + + + + | 02/27/ | Appointment | Radiology | Dhara, | | | 2019 | | | [address] | | | | | | [facility], | | | | | | [place] [address] | | | | | | [phone] | | | | | | | | +--------+ + + + + | 03/04/ | Appointment | Rehabilitation | Genesis Ayon OT | | | 2019 | | | | | +--------+ + + + + | 03/09/ | Office | Orthopedic Surgery | Jeffrey Gandhi, | | 2019 | Visit | | [address] | | | | | | [place] [address] | | | | | | [phone] | | | | | | | [...] [place] | | | | | | [address] | | | | | | [phone] | | | | | | | [...] | | | | | [place] [address] | | | | | | [phone] | | | | | | | | | | | | Azul Yeboah, | | | | | | MD [address] | | | | | | [place] | | | | | | [place] [address] | | | | | | [phone] | | | | | | | [...] | | | | | | [place] [address] | | | | | | [phone] | | | | | | | | +--------+ + + + + documented as of this encounter Visit Diagnoses Not on filedocumented in this encounter"
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
--- OUTSIDE RECORDS SUMMARY | ~2020-02-18 | XMS | Encounter Summary ---
Demographics + + + | Address | [address] | | | [place] [address] | + + + | Home Phone [...] Providers + +------+ + | Care Lead Project Manager Name | Role | Phone | + +------+ + PCP | Unavailable | + +------+ + Encounter Details +--------+ + + + + | Date | Type | Department | Care Team | Description | +--------+ + + + + | 08/04/ | [facility] | [place] [facility] | Erika Ernst, | | | 2016 | Encounter | [facility] | DO [address] | | | | | MEDICAL CLINIC [address] | [place] [address] | | | | | [address] [place], | [phone] | | | | | [place] [address] | | | | | | [phone] | | | +--------+ + + + [...] 2019 | | | DO [facility] | | | | | | [place], [place] [address] | | | | | | [phone] | | | | | | | | | | | | Julia Fisher, | | | | | | PT | | +--------+ + + + + | 02/18/ | Appointment | Rehabilitation | Erika Ernst, | | | 2019 | | | DO [address] | | | | | | [place] [address] | | | | | | [phone] | | | | | | | | | | | | Genesis Ayon, SUSAN | | +--------+ + + + + | 02/25/ | Office | Primary Care | Erika Ernst, | | | 2019 | Visit | | DO [address] | | | | | | [place] [address] | | | | | | [phone] | | | | | | | [...] | | | | | [place] [address] | | | | | | [phone] | | | | | | | | +--------+ + + + + | 02/27/ | Appointment | Radiology | Dhara, | | 2019 | | | [address] | | | | | | 4TH [facility] [place], | | | | | | [place] [address] | | | | | | [phone] | | | | | | | [...] | | | | | [place] [address] | | | | | | [phone] | | | | | | | [...] [place] | | | | | | [address] | | | | | | [phone] | | | | | | | [...] | | | | | [place] [address] | | | | | | [phone] | | | | | | | | | | | | Azul Yeboah, | | | | | | MD [address] | | | | | | [place] | | | | | | [place] [address] | | | | | | [phone] | | | | | | | [...] | | | | | | [place] [address] | | | | | | [phone] | | | | | | | | +--------+ + + + + documented as of this encounter Visit Diagnoses Not on filedocumented in this encounter"
--- OUTSIDE RECORDS SUMMARY | ~2020-02-18 | XMS | Encounter Summary ---
Demographics + + + | Address | [address] | | | [place] [address] | + + + | Home Phone [...] Team Providers + +------+ + | Care New Car Sales Manager Name | Role | Phone [...] | MEDICAL [facility]IN[facility] [address] | [place] [address] | | | | | [address] [facility], | [phone] | | | | | [place] [address] | | | | | | [phone] | | | +--------+ + + + [...] | | | | | [place] [address] | | | | | | [phone] | | | | | | | | | | | | Julia Fisher, | | | | | | PT | | +--------+ + + + + | 02/18/ | Appointment | Rehabilitation | Erika Ernst, | | | 2019 | | | DO [address] | | | | | | [place] [address] | | | | | | [phone] | | | | | | | | | | | | Genesis Ayon OT | | +--------+ + + + + | 02/25/ | Office | Primary Care | Erika Ernst, | | | 2019 | Visit | | DO [address] | | | | | | [place] [address] | | | | | | [phone] | | | | | | | [...] | | | | | | [place] [address] | | | | | | [phone] | | | | | | | | +--------+ + + + + | 02/27/ | Appointment | Radiology | Dhara, | | | 2019 | | | [address] | | | | | | [address]TH [facility] [place], | | | | | | [place] [address] | | | | | | [phone] | | | | | | | [...] [place] | | | | | | [place] [address] | | | | | | [phone] | | | | | | | [...] [place] | | | | | | [address] | | | | | | [phone] | | | | | | | [...] | | | | | [place] [address] | | | | | | [phone] | | | | | | | | | | | | Azul Yeboah, | | | | | | MD [address] | | | | | | [place] | | | | | | [place] [address] | | | | | | [phone] | | | | | | | [...] | | | | | | [place] [address] | | | | | | [phone] | | | | | | | | +--------+ + + + + documented as of this encounter Visit Diagnoses Not on filedocumented in this encounter"
--- OUTSIDE RECORDS SUMMARY | ~2020-02-18 | XMS | Encounter Summary ---
Demographics + + + | Address | [address] | | | [place] [address] | + + + | Home Phone [...] Providers + +------+ + | Care Shoemaking Finisher Name | Role | Phone | [...] | MEDICAL [facility] [address] | [place] [address] | | | | | [address] [place], | [phone] | | | | | [place] [address] | | | | | | [phone] | | | +--------+ + + + [...] | | | | | [place] [address] | | | | | | [phone] | | | | | | | | | | | | Julia Fisher, | | | | | | PT | | +--------+ + + + + | 02/18/ | Appointment | Rehabilitation | Erika Ernst, | | | 2019 | | | DO [address] | | | | | | [place] [address] | | | | | | [phone] | | | | | | | | | | | | Genesis Ayon OT | | +--------+ + + + + | 02/25/ | Office | Primary Care | Erika Ernst, | | | 2019 | Visit | | DO [address] | | | | | | [place] [address] | | | | | | [phone] | | | | | | | [...] | | | | | [place] [address] | | | | | | [phone] | | | | | | | | +--------+ + + + + | 02/27/ | Appointment | Radiology | Dhara, | | | 2019 | | | [address] | | | | | | [address]TH [place], | | | | | | [place] [address] | | | | | | [phone] | | | | | | | [...] [place] | | | | | | [place] [address] | | | | | | [phone] | | | | | | | [...] [place] | | | | | | [address] | | | | | | [phone] | | | | | | | [...] | | | | | [place] [address] | | | | | | [phone] | | | | | | | | | | | | Azul Yeboah, | | | | | | MD [address] | | | | | | [place] | | | | | | [place] [address] | | | | | | [phone] | | | | | | | [...] | | | | | | [place] [address] | | | | | | [phone] | | | | | | | | +--------+ + + + + documented as of this encounter Visit Diagnoses Not on filedocumented in this encounter"
--- OUTSIDE RECORDS SUMMARY | ~2020-02-18 | XMS | Encounter Summary ---
Demographics + + + | Address | [address] | | | [place] [address] | + + + | Home Phone [...] Team Providers + +------+ + | Care Space Technologist Name | Role | Phone | [...] | | | CENTER [address] | [facility] | | | | | [address] [place] | [email or web address] [address] | | | | | [address] | [phone] | | | | | [phone] | | | +--------+ + + + [...] | | | | | [place] [address] | | | | | | [phone] | | | | | | | | | | | | Julia Fisher, | | | | | | PT | | +--------+ + + + + | 02/18/ | Appointment | Rehabilitation | Erika Ernst, | | | 2019 | | | DO [address] | | | | | | [place] [address] | | | | | | [phone] | | | | | | | | | | | | Genesis Ayon, SUSAN | | +--------+ + + + + | 02/25/ | Office | Primary Care | Erika Ernst, | | | 2019 | Visit | | DO [address] | | | | | | [place] [address] | | | | | | [phone] | | | | | | | [...] | | | | | [place] [address] | | | | | | [phone] | | | | | | | | +--------+ + + + + | 02/27/ | Appointment | Radiology | Dhara, | | | 2019 | | | [address] | | | | | | [address]TH [place], | | | | | | [place] [address] | | | | | | [phone] | | | | | | | | +--------+ + + + + | 03/04/ | Appointment | Rehabilitation | Genesis Ayon OT | | | 2019 | | | | | +--------+ + + + + | 03/09/ | Office | Orthopedic Surgery | Jeffrey Gandhi, | | | 2019 | Visit | | [address] [facility] | | | | | | [place] [address] | | | | | | [phone] | | | | | | | [...] [place] | | | | | | [address] | | | | | | [phone] | | | | | | | [...] | | | | | [place] [address] | | | | | | [phone] | | | | | | | | | | | | Azul Yeboah, | | | | | | MD [address] | | | | | | [place] | | | | | | [place] [address] | | | | | | [phone] | | | | | | | [...] | | | | | | [place] [address] | | | | | | [phone] | | | | | | | | +--------+ + + + + documented as of this encounter Visit Diagnoses Not on filedocumented in this encounter"
--- OUTSIDE RECORDS SUMMARY | ~2020-02-18 | XMS | Encounter Summary ---
Demographics + + + | Address | [address] | | | [place] [address] | + + + | Home Phone [...] Team Providers + +------+ + | Care Patient Transportation Driver Name | Role | Phone | [...] Services | Therapy | S/P | C, PRESS OPERATOR [address] | [facility] | | | Required | | excisional | [address] , | THERAPY [address] | | | | | debridement | [address] | | | | | Procedures | [place], [place] | [place] | | | | | [place] | [address] | [address] | | | | | | Phone: | Phone: | | | | | | [phone] | [phone] | | | | | | Fax: | Fax: | | | | | | [phone] | [phone] | +--------+ + + + + + [...] | | | [place], [place] | [address] | | | | | [address] | [phone] | | | | | [phone] | | | +--------+---------+ + + + [...] | : 1990 | Medical Record Number:[id number] | Author: MOHSEN MartinezP-C | Date of Encounter: 04/30/2019 Surgeon: Inocencio Noriega MD History of present illness Andrea Suh is a 29 y.o. female that follows up in the office 4 weeks status post r ight extensor carpi ulnaris tenosynovectomy, reporting no complications with her recovery ot her than a loose cast that was applied by the [facility] ER when she presented to them [...] E.C.U. Tendon; Surgeon: Inocencio Noriega MD; Location: [facility] SURGERY RIGHT KIDNER PROCEDURE 01/20/2016 Surgeon: Fani Mahajan MD; Location: [facility] TENDON RELEASE TONSILLECTOMY WISDOM TOOTH EXTRACTION Family History Problem Relation Age of Onset Other (see comment) Mother gallbladder disease Hypertension Father Other (see comment) Father lilibeth Breast cancer Sister Cervical cancer Maternal Grandmother Heart attack Maternal Aunt [place] Social History Tobacco Use Smoking status: Never [...] and their vital signs recorded by my dietitian assistant today, a s found in this chart note. Electronically signed by: MOHSEN Martinez 04/30/2019 at 13:10 Note: Part of this report was transcribed using voice recognition software. Every effort wa s made to ensure accuracy. However, inadvertent computerized business applications analyst errors may be pre sent. CC: [...] | | | | | [place] [address] | | | | | | [phone] | | | | | | | | | | | | Julia Fisher, | | | | | | PT | | +--------+ + + + + | 02/18/ | Appointment | Rehabilitation | Erika Ernst, | | | 2019 | | | DO [address] | | | | | | [place] [address] | | | | | | [phone] | | | | | | | | | | | | Genesis Ayon OT | | +--------+ + + + + | 02/25/ | Office | Primary Care | Erika Ernst, | | | 2019 | Visit | | DO [address] | | | | | | [place] [address] | | | | | | [phone] | | | | | | | [...] | | | | | [place] [address] | | | | | | [phone] | | | | | | | | +--------+ + + + + | 02/27/ | Appointment | Radiology | Dhara, | | | 2019 | | | [address] | | | | | | 4TH [facility], | | | | | | [place] [address] | | | | | | [phone] | | | | | | | | +--------+ + + + + | 03/04/ | Appointment | Rehabilitation | Genesis Ayon OT | | | 2019 | | | | | +--------+ + + + + | 03/09/ | Office | Orthopedic Surgery | Jeffrey Gandhi, | | | 2019 | Visit | | [address] | | | | | | [place] [address] | | | | | | [phone] | | | | | | | [...] [place] | | | | | | [address] | | | | | | [phone] | | | | | | | [...] | | | | | [place] [address] | | | | | | [phone] | | | | | | | | | | | | Azul Yeboah, | | | | | | MD [address] | | | | | | [place] | | | | | | [place] [address] | | | | | | [phone] | | | | | | | | +--------+ + + + + | 04/08/ | Appointment | Nutrition | Janel Webster | | | 2019 | | | [address], [address] | | +--------+ + + + + | 05/21/ | Office | Neurology | Dhara, | | | 2019 | Visit | | Cody [address]PER[address] | | | | | | 4TH [facility], | | | | | | [place] [address] | | | | | | [phone] | | | | | | | [...]
--- OUTSIDE RECORDS SUMMARY | ~2020-02-18 | XMS | Encounter Summary ---
Demographics + + + | Address | [address] | | | [place] [address] | + + + | Home Phone [...] Providers + +------+ + | Care Physical Plant Employee Name | Role | Phone | [...] Medication Prior | | 2018 | | [facility] | [address] [place] | Authorization | | | | MEDICAL CLINIC [address] | [place] [address] | (Metoprolol | | | | [address] [facility], | [phone] | Succinate ER 100 mg | | | | [place] [address] | | ) | | | | [phone] | | | +--------+ + + + [...] | | | | | [place] [address] | | | | | | [phone] | | | | | | | | | | | | Julia Fisher, | | | | | | PT | | +--------+ + + + + | 02/18/ | Appointment | Rehabilitation | Erika Ernst, | | | 2019 | | | DO [address] | | | | | | [place] [address] | | | | | | [phone] | | | | | | | | | | | | Genesis Ayon, OT | | +--------+ + + + + | 02/25/ | Office | Primary Care | Erika Ernst, | | | 2019 | Visit | | DO [address] | | | | | | [place] [address] | | | | | | [phone] | | | | | | | [...] | | | | | [place] [address] | | | | | | [phone] | | | | | | | | +--------+ + + + + | 02/27/ | Appointment | Radiology | Dhara, | | | 2019 | | | [address] | | | | | | 4TH [facility], | | | | | | [place] [address] | | | | | | [phone] | | | | | | | | +--------+ + + + + | 03/04/ | Appointment | Rehabilitation | Genesis Ayon OT | | | 2019 | | | | | +--------+ + + + + | 03/09/ | Office | Orthopedic Surgery | Jeffrey Gandhi, | | | 2019 | Visit | | [address] | | | | | | [place] [address] | | | | | | [phone] | | | | | | | [...] [place] | | | | | | [address] | | | | | | [phone] | | | | | | | [...] [address] | | | | | | [phone] | | | | | | | | | | | | Azul Yeboah, | | | | | | MD [address] | | | | | | [place] | | | | | | [place] [address] | | | | | | [phone] | | | | | | | [...] | | | | | | [place] [address] | | | | | | [phone] | | | | | | | | +--------+ + + + + documented as of this encounter Visit Diagnoses Not on filedocumented in this encounter"
--- OUTSIDE RECORDS SUMMARY | ~2020-02-18 | XMS | Encounter Summary ---
Demographics + + + | Address | [address] | | | [place] [address] | + + + | Home Phone [...] Providers + +------+ + | Care Junior Assistant Manager Name | Role | Phone | [...] | HOSPITAL X[facility] [address] | MD [address] | | | | | [address] | [place] | | | | | [place] | [place], [place] [address] | | | | | [address] | [phone] | | | | | [phone] | | | +--------+ + + + [...] | | | | | [place] [address] | | | | | | [phone] | | | | | | | | | | | | Julia Fisher, | | | | | | PT | | +--------+ + + + + | 02/18/ | Appointment | Rehabilitation | Erika Ernst, | | | 2019 | | | DO [address] [place] | | | | | | [place] [address] | | | | | | [phone] | | | | | | | | | | | | Genesis Ayon OT | | +--------+ + + + + | 02/25/ | Office | Primary Care | Erika Ernst, | | | 2019 | Visit | | DO [address] | | | | | | [place] [address] | | | | | | [phone] | | | | | | | [...] | | | | | [place] [address] | | | | | | [phone] | | | | | | | | +--------+ + + + + | 02/27/ | Appointment | Radiology | Dhara, | | | 2019 | | | [address] | | | | | | [address] [facility], | | | | | | [place] [address] | | | | | | [phone] | | | | | | | | +--------+ + + + + | 03/04/ | Appointment | Rehabilitation | Genesis Ayon OT | | | 2019 | | | | | +--------+ + + + + | 03/09/ | Office | Orthopedic Surgery | Jeffrey Gandhi, | | | 2019 | Visit | | [address] [facility] | | | | | | [place] [address] | | | | | | [phone] | | | | | | | [...] [place] | | | | | | [address] | | | | | | [phone] | | | | | | | [...] | | | | | [place] [address] | | | | | | [phone] | | | | | | | | | | | | Azul Yeboah, | | | | | | MD [address] | | | | | | [place] | | | | | | [place] [address] | | | | | | [phone] | | | | | | | | +--------+ + + + + | 04/08/ | Appointment | Nutrition | Janel Webster | | | 2019 | | | [place], [place] | | +--------+ + + + + | 05/21/ | Office | Neurology | Dhara, | | | 2019 | Visit | | Cody RUG RECEIVING CLERK [address] | | | | | | [address] [facility], | | | | | | [place] [address] | | | | | | [phone] | | | | | | | [...] | Normal right ankle x-rays. JOB #: [id number] | | | Read By: BARRON YING [...] | | | | | JOB #: [id number] | | | | Read By: BARRON [...] interval change. | | | JOB #: [id number] Read By: BARRON Narayanan | | | [...] interval change. D: | | 01/22/2015JOB #: [id number] Read By: BARRON YING MD Released By: [...] | | | | | |JOB #: [id number] | | | |Read By: BARRON YING MD | | | |Released By: BARRON YING MD | |Date: 01/22/2015 20:18 | | | | | + + documented in this encounter Visit Diagnoses Not on filedocumented in this encounter"
--- OUTSIDE RECORDS SUMMARY | ~2020-02-18 | XMS | Encounter Summary ---
Demographics + + + | Address | [address] | | | [place] [address] | + + + | Home Phone [...] Providers + +------+ + | Care Manufacturing Weaver Name | Role | Phone | [...] Refill | | 2019 | | [facility] | [address] | | | | | MEDICAL CLIN[facility] [address] | [place] [address] | | | | | [address] [facility], | [phone] | | | | | [place] [address] | | | | | | [phone] | | | +--------+ + + + [...] | | | | | [place] [address] | | | | | | [phone] | | | | | | | | | | | | Julia Fisher, | | | | | | PT | | +--------+ + + + + | 02/18/ | Appointment | Rehabilitation | Erika Ernst, | | | 2019 | | | DO [address] | | | | | | [place] [address] | | | | | | [phone] | | | | | | | | | | | | Genesis Ayon OT | | +--------+ + + + + | 02/25/ | Office | Primary Care | Erika Ernst, | | | 2019 | Visit | | DO [address] [place] | | | | | | [place] [address] | | | | | | [phone] | | | | | | | [...] | | | | | [place] [address] | | | | | | [phone] | | | | | | | | +--------+ + + + + | 02/27/ | Appointment | Radiology | Dhara, | | | 2019 | | | [address]WA[address] | | | | | | [address] [facility], | | | | | | [place] [address] | | | | | | [phone] | | | | | | | [...] | | | | | [place] [address] | | | | | | [phone] | | | | | | | [...] [place] | | | | | | [address] | | | | | | [phone] | | | | | | | [...] | | | | | [place] [address] | | | | | | [phone] | | | | | | | | | | | | Azul Yeboah, | | | | | | MD [address] | | | | | | [address] [place] | | | | | | [place] [address] | | | | | | [phone] | | | | | | | [...] | | | | | | [place] [address] | | | | | | [phone] | | | | | | | | +--------+ + + + + documented as of this encounter Visit Diagnoses Not on filedocumented in this encounter"
--- OUTSIDE RECORDS SUMMARY | ~2020-02-18 | XMS | Encounter Summary ---
Demographics + + + | Address | [address] | | | [place] [address] | + + + | Home Phone [...] Team Providers + +------+ + | Care Returned Telephone Equipment Appraiser Name | Role | Phone | [...] | [address] | [facility] [place] [place] | | | | | [place], [place] | [address] | | | | | [address] | [phone] | | | | | [phone] | | | +--------+ + + + [...] | | | | | [place] [address] | | | | | | [phone] | | | | | | | | | | | | Julia Fisher, | | | | | | PT | | +--------+ + + + + | 02/18/ | Appointment | Rehabilitation | Erika Ernst, | | | 2019 | | | DO [address] | | | | | | [place] [address] | | | | | | [phone] | | | | | | | | | | | | Genesis Ayon, OT | | +--------+ + + + + | 02/25/ | Office | Primary Care | Erika Ernst, | | | 2019 | Visit | | DO [address] | | | | | | [place] [address] | | | | | | [phone] | | | | | | | [...] | | | | | [place] [address] | | | | | | [phone] | | | | | | | | +--------+ + + + + | 02/27/ | Appointment | Radiology | Dhara, | | | 2019 | | | [address] | | | | | | [address]TH [facility], | | | | | | [place] [address] | | | | | | [phone] | | | | | | | | +--------+ + + + + | 03/04/ | Appointment | Rehabilitation | Genesis Ayon OT | | | 2019 | | | | | +--------+ + + + + | 03/09/ | Office | Orthopedic Surgery | Jeffrey Gandhi, | | 2019 | Visit | | [address] | | | | | | [place] [address] | | | | | | [phone] | | | | | | | [...] [place] | | | | | | [address] | | | | | | [phone] | | | | | | | [...] | | | | | [place] [address] | | | | | | [phone] | | | | | | | | | | | | Azul Yeboah, | | | | | | MD [address] | | | | | | [place] | | | | | | [place] [address] | | | | | | [phone] | | | | | | | [...] | | | | | | [place] [address] | | | | | | [phone] | | | | | | | | +--------+ + + + + documented as of this encounter Visit Diagnoses Not on filedocumented in this encounter"
--- OUTSIDE RECORDS SUMMARY | ~2020-02-18 | XMS | Encounter Summary ---
Demographics + + + | Address | [address] | | | [place] [address] | + + + | Home Phone [...] Team Providers + +------+ + | Care Chapter Relations Administrator Name | Role | Phone | [...] 12/25/ | Telephone | [place] [facility] | KleverErika epps, | Other (FYI) | | 2020 | | [facility] | DO [address] | | | | | [facility] [address] | [place] [address] | | | | [address] [place], | [phone] | | | | | [place] [address] | | | | | | [phone] | | | +--------+ + + + [...] | | | | | [place] [address] | | | | | | [phone] | | | | | | | | | | | | Julia Fisher, | | | | | | PT | | +--------+ + + + + | 02/18/ | Appointment | Rehabilitation | Erika Ernst, | | | 2019 | | | DO [address] | | | | | | [place] [address] | | | | | | [phone] | | | | | | | | | | | | Genesis Ayon OT | | +--------+ + + + + | 02/25/ | Office | Primary Care | Erika Ernst, | | | 2019 | Visit | | DO [address] | | | | | | [place] [address] | | | | | | [phone] | | | | | | | [...] | | | | | | [place] [address] | | | | | | [phone] | | | | | | | | +--------+ + + + + | 02/27/ | Appointment | Radiology | Dhara, | | | 2019 | | | [address] | | | | | | 4TH [facility], | | | | | | [place] [address] | | | | | | [phone] | | | | | | | | +--------+ + + + + | 03/04/ | Appointment | Rehabilitation | Genesis Ayon OT | | | 2019 | | | | | +--------+ + + + + | 03/09/ | Office | Orthopedic Surgery | Jeffrey Gandhi, | | | 2019 | Visit | | [address] | | | | | | [place] [address] | | | | | | [phone] | | | | | | | [...] [address] | | | | | | [address] | | | | | | [place] | | | | | | [address] | | | | | | [phone] | | | | | | | [...] | | | | | [place] [address] | | | | | | [phone] | | | | | | | | | | | | Azul Yeboah, | | | | | | [address] | | | | | | [place] | | | | | | [place] [address] | | | | | | [phone] | | | | | | | [...] | | | | | | [place] [address] | | | | | | [phone] | | | | | | | | +--------+ + + + + documented as of this encounter Visit Diagnoses Not on filedocumented in this encounter"
--- OUTSIDE RECORDS SUMMARY | ~2020-02-18 | XMS | Encounter Summary ---
Demographics + + + | Address | [address] | | | [place] [address] | + + + | Home Phone [...] Team Providers + +------+ + | Care Carton Folder Name | Role | Phone | [...] | | | | s (de | [place], [place] | [place] [address] | | | | | quervain) | [address] | Phone: | | | | | Pain in | Phone: | [phone] | | | | | right wrist | [phone] | Fax: | | | | | Procedures | Fax: | [phone] | | | | | OT TREAT | [phone] | | +--------+--------+ + + + + [...] | | [address] | [place] [address] | (Primary Dx); Right | | | | [place], [place] | [phone] | wrist pain | | | | [address] | | | | | | [phone] | Nakia Koo OT | | +--------+ [...] | 11/26/19 | | | (VITAMIN D3) 39358 | mouth Once a week | tablet | | 19 | 9 | | units TABS | for 16 doses. | | | | | + + + +---------+ + + | D3-50 11273 units | | | 0 | 12/13/19 [...] OT - 12/13/2018 1:[address] [facility] [address] [place] [address] Occupational Therapy Daily Treatment Note Date: 12/13/2018 [...] loading and prop rioception at tabletop, 5' lens maker strengthening 1-2x/day light resistance, and second surgic [...] period and is compliant with wrist and lens maker strengthening exercises. She does still hav e deficits in lens maker strength and wrist stability as well as pain with daily activities. Her j ob description may be changing which would decrease the physical demands of her work, making it more appropriate for her current status. She continues to benefit from Panel Cutter apy to maximize her lens maker strength and wrist stability following this injury and return her t o prior level of function. 10/30/2018 - REASON FOR RE-CERTIFICATION: Andrea has received 12 Occupational Therapy treatme nts since 08/07/2018 following her right wrist surgery. She has regained full AROM of the rig ht wrist but continues to have right wrist, lens maker and pinch weakness and significant pain (3- [...] in 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, and lens maker and pinch weakness in the right [...] | | | | | [place] [address] | | | | | | [phone] | | | | | | | | | | | | Julia Fisher, | | | | | | PT | | +--------+ + + + + | 02/18/ | Appointment | Rehabilitation | Erika Ernst, | | 2019 | | | DO [address] | | | | | | [place] [address] | | | | | | [phone] | | | | | | | | | | | | Genesis Ayon, OT | | +--------+ + + + + | 02/25/ | Office | Primary Care | Erika Ernst, | | | 2019 | Visit | | DO [address] | | | | | | [place] [address] | | | | | | [phone] | | | | | | | [...] | | | | | [place] [address] | | | | | | [phone] | | | | | | | | +--------+ + + + + | 02/27/ | Appointment | Radiology | Dhara, | | | 2019 | | | [address] | | | | | | 4TH [facility], | | | | | | [place] [address] | | | | | | [phone] | | | | | | | | +--------+ + + + + | 03/04/ | Appointment | Rehabilitation | Genesis Ayon OT | | | 2019 | | | | | +--------+ + + + + | 03/09/ | Office | Orthopedic Surgery | Jeffrey Gandhi, | | | 2019 | Visit | | MD [address] [facility] | | | | | | [place] [address] | | | | | | [phone] | | | | | | | [...] [place] | | | | | | [address] | | | | | | [phone] | | | | | | | [...] | | | | | [place] [address] | | | | | | [phone] | | | | | | | | | | | | Azul Yeboah, | | | | | | MD [address] | | | | | | [place] | | | | | | [place] [address] | | | | | | [phone] | | | | | | | [...] | | | | | | [place] [address] | | | | | | [phone] | | | | | | | | +--------+ + + + + documented as of this encounter Visit Diagnoses + + | Diagnosis | + + | Radial styloid tenosynovitis - Primary | + + | Right wrist pain Pain in joint, forearm | + + documented in this encounter
--- OUTSIDE RECORDS SUMMARY | ~2020-02-18 | XMS | Encounter Summary ---
Demographics + + + | Address | [address] | | | [place] [address] | + + + | Home Phone [...] | | | 2019 | Support | [facility] | [address] | | | | | MEDICAL CLIN[facility] [address] | [place] [address] | | | | | [address] [place], | [phone] | | | | | [place] [address] | | | | | | [phone] | Denise Mcgregor, | | | | | | FITNESS DIRECTOR | | +--------+ + + + + [...] mouth. Once a week Cholecalciferol (VITAMIN D3) 05796 units TABS Take 1 tablet by mouth [...] | | | | | [place] [address] | | | | | | [phone] | | | | | | | | | | | | Julia Fisher, | | | | | | PT | | +--------+ + + + + | 02/18/ | Appointment | Rehabilitation | Erika Ernst, | | | 2019 | | | DO [address] | | | | | | [place] [address] | | | | | | [phone] | | | | | | | | | | | | Genesis Ayon OT | | +--------+ + + + + | 02/25/ | Office | Primary Care | Erika Ernst, | | | 2019 | Visit | | [address] [place] [address] | | | | | | [place] [address] | | | | | | [phone] | | | | | | | [...] | | | | | [place] [address] | | | | | | [phone] | | | | | | | | +--------+ + + + + | 02/27/ | Appointment | Radiology | Dhara, | | | 2019 | | | [address] | | | | | | [address] [place], | | | | | | [place] [address] | | | | | | [phone] | | | | | | | | +--------+ + + + + | 03/04/ | Appointment | Rehabilitation | Genesis Ayon OT | | 2019 | | | | | +--------+ + + + + | 03/09/ | Office | Orthopedic Surgery | Jeffrey Gandhi, | | | 2019 | Visit | | MD [address] [facility] | | | | | | [place] [address] | | | | | | [phone] | | | | | | | [...] [place] | | | | | | [address] | | | | | | [phone] | | | | | | | [...] | | | | | [place] [address] | | | | | | [phone] | | | | | | | | | | | | Azul Yeboah, | | | | | | [address] | | | | | | [place] | | | | | | [place] [address] | | | | | | [phone] | | | | | | | [...] | | | | | | [place] [address] | | | | | | [phone] | | | | | | | | +--------+ + + + + documented as of this encounter Visit Diagnoses Not on filedocumented in this encounter"
--- OUTSIDE RECORDS SUMMARY | ~2020-02-18 | XMS | Encounter Summary ---
Demographics + + + | Address | [address] | | | [place] [address] | + + + | Home Phone [...] Providers + +------+ + | Care Global Climate Change Researcher Name | Role | Phone | [...] + + | Canceled | Specialty | Behavioral | Diagnoses | Klever, | NEW | | | Services | Health | PTSD | Erika Salter DO | [address] | | | Required | | (post-trauma | [address] | BEHAVIORAL | | | | | tic stress | [place], | [facility]ALTH [address] | | | | | disorder) | [place] [address] | [address] | | | | | | Phone: | [facility], [place] | | | | | | [phone] | [address] | | | | | | Fax: | Phone: | | | | | | [phone] | [phone] | | | | | | | Fax: | | | | | | | [phone] | + + + + + + + Reason for Visit +--------+ + | Reason | Comments | +--------+ + | Other | | +--------+ + Encounter Details +--------+ + + + + | Date | Type | Department | Care Team | Description | +--------+ + + + + | 06/28/ | Telephone | [place] [facility] | Erika Ernst, | Other | | 2017 | | [facility] | [address] | | | | | MEDICAL CLINIC [address] | [place] [address] | | | | | [address] [place], | [phone] | | | | | [place] [address] | | | | | | [phone] | | | +--------+ + + + [...] | | 2019 | | | DO [address] [place] [address] | | | | | | [place] [address] | | | | | | [phone] | | | | | | | | | | | | Julia Fisher, | | | | | | PT | | +--------+ + + + + | 02/18/ | Appointment | Rehabilitation | Erika Ernst, | | | 2019 | | | DO [address] | | | | | | [place] [address] | | | | | | [phone] | | | | | | | | | | | | Genesis Ayon, OT | | +--------+ + + + + | 02/25/ | Office | Primary Care | Erika Ernst, | | | 2019 | Visit | | DO [address] | | | | | | [place] [address] | | | | | | [phone] | | | | | | | [...] | | | | | [place] [address] | | | | | | [phone] | | | | | | | | +--------+ + + + + | 02/27/ | Appointment | Radiology | Dhara, | | | 2019 | | | [address] | | | | | | [address] [place], | | | | | | [place] [address] | | | | | | [phone] | | | | | | | [...] | | | | | [place] [address] | | | | | | [phone] | | | | | | | [...] [place] | | | | | | [address] | | | | | | [phone] | | | | | | | [...] | | | | | [place] [address] | | | | | | [phone] | | | | | | | | | | | | Azul Yeboah, | | | | | | MD [address] | | | | | | [place] | | | | | | [place] [address] | | | | | | [phone] | | | | | | | [...] | | | | | | [place] [address] | | | | | | [phone] | | | | | | | | +--------+ + + + + + + +--------+ + + | Name | Type | Priori | Associated Diagnoses | Order Schedule | | | | ty | | | + + +--------+ + + | Behavioral Health, | Outpatient | Routin | PTSD | Ordered: 06/28/2018 | | External - AMB | Referral | e | (post-traumatic | | | Referral | | | stress disorder) | | + + +--------+ + + documented as of this encounter Visit Diagnoses + + | Diagnosis | + + | PTSD (post-traumatic stress disorder) - Primary Posttraumatic stress disorder | + + documented in this encounter"
--- OUTSIDE RECORDS SUMMARY | ~2020-02-18 | XMS | Encounter Summary ---
Demographics + + + | Address | [address] | | | [place] [address] | + + + | Home Phone [...] Team Providers + +------+ + | Care Ambulatory Care Nurse Name | Role | Phone [...] | | | right ankle, | [place] [address] | [place] [address] | | | | | subsequent | Phone: | Phone: | | | | | encounter | [phone] | [phone] | | | | | Procedures | Fax: | Fax: | | | | | PT EVAL | [phone] | [phone] | +--------+ + + + + + Encounter Details +--------+ + + + + | Date | Type | Department | Care Team | Description | +--------+ + + + + | 11/21/ | Hospital | [place] [facility] | Erika Ernst, | Sprain of deltoid | | 2019 | Encounter | HOSPITAL THERAPY PT | DO [address] | ligament of right | | | | [address] [place] | [place] [address] | ankle, subsequent | | | | [place], [place] | [phone] | encounter | | | | [address] | | | | | | [phone] | Julia Fisher, | | | | [...] + + + + | Pulse | - | - | | + [...] Weight | 165.6 kg (365 lb) | 11/21/2019 12:56 PM | | | | | PST | | + + + + + | Height | 177.8 cm (5' 10") | 11/21/2019 12:56 PM | | | | | PST | | + + + + + | Body Mass Index | 52.37 | 11/21/2019 12:56 PM | | | | | PST [...] to 2 spray | | 1 | 02/21/20 | | | nasal spray | into [...] A SMALL AMOUNT | | 0 | / | | | CREA | to affected [...] documented as of this encounter Progress Julia Dahl, PT - 11/21/2019 11:00 AM PST Musculoskeletal Program: Physical Therapy and Occupational Therapy (Required for all MSK conditions including pelvic pain & hand) RENDERING PROVIDER INFORMATION All sections must be completed Therapist First Name, Last Name Julia Fisher, PT Facility Name [facility] Billing Provider HENNY [id number] Provider Address, [facility] Zip Code [address] [place] [address] Billing Provider PATIENT INFORMATION All sections must be completed Patient Last Name, First Name DALTONFRANKANDREA MARSHALL ABBEY Date of 1990 Mailing Address [address] [place] [address] Coverage Information Payor/Plan Subscriber Name Rel Member # Group # [facility]* ANDREA SUH SIA* [id number] [address] CLINICAL INFORMATION Primary ICD/Diagnosis Code: Encounter Diagnoses Code Name Primary? S93.421D Sprain of deltoid ligament of right ankle, subsequent encounter Start Date of this Request: 11/21/2019 This Request is for: [x] Initial Care (member not treated in the previous 60 days) [] Continuing Care Date of initial eval: 11/21/2019 [...] Used: [x] LEFS Initial Follow-Up Enter Score 57 Current Score: Initial Score: Does your patient demonstrate any of the [...] [] Unable to complete clinical visits/home program orma, Julia Henry PT - 11/21/2019 11:[address] [facility] PT [address] [place] [address] Physical Therapy Initial Assessment Date: 11/21/2019 Patient Information Patient Name: Andrea Suh Date of : 1990 Age: 29 y.o. History Problem Sprain of Deltoid Ligament of Right Ankle, Subsequent Encounter Mechanism of injury: no specific injury History of symptoms: Patient reports her right ankle started hurting more over the last few months. She reports had an MRI and there was variable feedback as to what it showed. She re ports had surgery in 2016 (Kidner procedure to remove extra navicular) Pt also still having intermittent pain in her right knee, this has been addressed in physic al therapy in the past Aggs: going up/down stairs, too much weightbearing. Still having swelling. Eases: ice, rest, sometimes uses KTape and is also trying to do the exercises she's done in the best. 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 Pt states Dr. Mittal has put her on limited stairs for work due to left ankle issues. Pt reports she's also lost weight in the last 3 months - about 40 #, thinks it's stress rel ated. Living situation: With self Social History Socioeconomic History Marital status: Single [...] control/protection: Condom Encounter Diagnoses Code Name Primary? S93.421D Sprain of deltoid ligament of right ankle, subsequent encounter Date of Onset: 05/21/2019 Referring Provider: Erika Ernst DO No history on file. Past Medical History: Diagnosis Date Allergic rhinitis Anemia Asthma Dysmenorrhea Hypertension Hypothyroid Iron deficiency Obesity ALVAREZ (obstructive sleep apnea) Periodontal disease, unspecified TMJ pain dysfunction syndrome Past Surgical History: Procedure Laterality Date EYE SURGERY HAND TENDON SURGERY Right 03/20/2019 Procedure: REPAIR E.C.U. Tendon; Surgeon: Inocencio Noriega MD; Location: [facility] SURGERY RIGHT KIDNER PROCEDURE 01/20/2016 Surgeon: Fani Mahajan MD; Location: [facility] TENDON RELEASE THYROID FINE NEEDLE ASPIRATION 09/02/2019 Procedure: US GUIDED THYROID FNA - Location: [facility] ULTRASOUND TONSILLECTOMY WISDOM TOOTH EXTRACTION Family History [...] antibiotics Adhesive & Tape Rash Prior Treatment: None within the last sixty days Objective Pain Assessment: Standardized Tests: Lower Extremity Functional Scale (LEFS) [...] difficulty Performing light activities around your home: 3 - A little bit of difficulty Performing heavy activities around your home: 2 - Moderate difficulty Getting into or out of a car: 4 - No difficulty Walking 2 blocks: 4 - No difficulty Walking a mile: 3 - A little bit of difficulty Going up or down 10 stairs (about 1 flight of stairs): 1 - Quite a bit of difficulty Standing for 1 hour: 2 - Moderate difficulty Sitting for 1 hour: 4 - No difficulty Running on even ground: 2 - Moderate difficulty Running on uneven ground: 2 - Moderate difficulty Making sharp turns while running fast: 2 - Moderate difficulty Hoppin - Moderate difficulty Rolling over in bed: 4 - No difficulty Lower Extremity Functional Scale Score (Calculated): 57 Lower Extremity Functional Scale Goal: Patient will improve score on LEFS to >65 indicating decreased severity of disability Lower Extremity Functional Scale Goal Status: New. Eval score 57/80 Range of Motion (measured in degrees): Lower Extremities Lower Extremities Note: WFL, mild increase in pain to medial right ankle at end of range ev ersion Strength: LE Manual Muscle Testing (MMT) Gross strength R LE: 5/5 normal, right Gross strength L LE: 5/5 normal, left LE Manual Muscle Testing Results: other (see comments)(grossly 5/5 except as noted) LLE Strength L Ankle Plantar Flexion: 4/5 RLE Strength R Ankle Plantar Flexion: 4/5 Strength Gross strength R LE: 5/5 normal, right Gross strength L LE: 5/5 normal, left Joint Mobility: RLE Joint Mobility R Talocrural Anterior [place]: normal R Talocrural Posterior [place]: normal R Subtalar Medial [place]: normal R Subtalar Lateral [place]: normal R Subtalar Anterior/Posterior [place]: normal R Midtarsal Anterior/Posterior [place]: normal Special Tests: Ankle Special Tests L Windlass Test NWB: negative R Windlass Test NWB: negative L Windlass Test WB: negative L Longitudinal Arch Angle: normal R Longitudinal Arch Angle: normal L Navicular Drop: negative R Navicular Drop: negative(notable scar tissue at navicular) Vitals: Height and weight Height: 177.8 cm (5' 10") Weight: (!) 165.6 kg (365 lb) BSA (calculated - sq m): 2.86 sq meters BMI (calculated): 52.5 Today's Treatment Patient Name: Andrea Henaoblit/: 1990/ Start Time: 1108 Stop time: 1146 Duration: 38 minutes Timed Treatment Codes: 7 minutes # of PT Visits: 1 Visit Summary: S: Patient here to address 6 month worsening of medial right ankle pain, pos sibly associated with history of Kidner procedure to that side. A: See evaluation summary. Next Visit Information: Short foot/intrinsics, progress general ankle/foot strengthening Patient/Caregiver Education Learner: Patient Readiness: Acceptance Method: Explanation Response: Verbalizes Understanding Therapy Interventions HEP: Calf raises with post tib bias, self STM with tennis ball PT Interventions: Intervention #1 PT INTERVENTION 1: TE (7min) Calf raises with post tib bias, self STM with tennis ball, ins truction in proper K-tape to support navicular/arch Assessment Initial evaluation 11/21/19: Patient is a 29 [...] disability Lower Extremity Functional Scale Goal Status: New. Eval score 57/80 OP PT Goals OP PT Goals: Goal 1, Goal 2 Goal 1: Patient will report no increse in right foot/ankle pain with ascending/descending s tairs at work in 12 weeks. Goal 1 Status: New. Patient reports mild to moderate pain Goal 2: Patient will be indep with home exercises program to manage symptoms in 12 weeks. Goal 2 Status: New. pt does not have an HEP Plan Date of Onset: 05/21/2019 Start of Care Date: 11/21/2019 Requested # of Visits: 6 visits 1x/week for 12 weeks Certification From: 11/21/2019 Certification To: 02/13/2020 Treatment Plan/Interventions PT EvaluationPT Re-[id number] - Therapeutic [id number] - Neuromuscular Reeducation9 7116 - Gait Ooxhnpjv13145 - Therapeutic Htwcdtizjc30846 - Aquatic Therapy/[id number] - U omplvjxvl00305/G0283 - Electrical Stimulation, [id number] - Electrical Stimulation, Att [id number] - TENS Application/Instruction Patient and/or family has indicated understanding of treatment needs and actively participa everardo in the creation of this plan for care. Electronically signed by: Julia Fisher PT, 11/21/2019 12:57 PM Patient Name: Andrea Suh/: 1990/ documented [...] | | | | | [place] [address] | | | | | | [phone] | | | | | | | | | | | | Julia Fisher, | | | | | | PT | | +--------+ + + + + | 02/18/ | Appointment | Rehabilitation | Erika Ernst, | | | 2019 | | | DO [address] [place] | | | | | | [place] [address] | | | | | | [phone] | | | | | | | | | | | | Genesis Ayon OT | | +--------+ + + + + | 02/25/ | Office | Primary Care | Erika Ernst, | | | 2019 | Visit | | DO [address] [place] | | | | | | [place] [address] | | | | | | [phone] | | | | | | | [...] | | Visit | | [address] | | | | | | [place] [address] | | | | | | [phone] | | | | | | | | +--------+ + + + + | 02/27/ | Appointment | Radiology | Dhara, | | | 2019 | | | [address] | | | | | | 4TH [facility], | | | | | | [place] [address] | | | | | | [phone] | | | | | | | | +--------+ + + + + | 03/04/ | Appointment | Rehabilitation | Genesis Ayon OT | | | 2019 | | | | | +--------+ + + + + | 03/09/ | Office | Orthopedic Surgery | Jeffrey Gandhi, | | | 2019 | Visit | | [address] | | | | | | [place] [address] | | | | | | [phone] | | | | | | | [...] [place] | | | | | | [address] | | | | | | [phone] | | | | | | | [...] [address] | | | | | | [phone] | | | | | | | | | | | | Azul Yeboah, | | | | | | MD [address] | | | | | | [place] | | | | | | [place] [address] | | | | | | [phone] | | | | | | | [...] | | | | | | [place] [address] | | | | | | [phone] | | | | | | | [...] deltoid ligament of right ankle, subsequent encounter | + + documented in this encounter
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
--- OUTSIDE RECORDS SUMMARY | ~2020-02-18 | XMS | Encounter Summary ---
Demographics + + + | Address | [address] | | | [place] [address] | + + + | Home Phone [...] Team Providers + +------+ + | Care Bunch Breaker Name | Role | Phone | + [...] [facility] [address] | [place] [address] | | | | [address] [facility], | [phone] | | | | | [place] [address] | | | | | | [phone] | | | +--------+ + + + [...] | | | | | [place] [address] | | | | | | [phone] | | | | | | | | | | | | Julia Fisher, | | | | | | PT | | +--------+ + + + + | 02/18/ | Appointment | Rehabilitation | Erika Ernst, | | | 2019 | | | DO [address] | | | | | | [place] [address] | | | | | | [phone] | | | | | | | | | | | | Genesis Ayon OT | | +--------+ + + + + | 02/25/ | Office | Primary Care | Erika Ernst, | | | 2019 | Visit | | DO [address] | | | | | | [place] [address] | | | | | | [phone] | | | | | | | [...] | | | | | [place] [address] | | | | | | [phone] | | | | | | | | +--------+ + + + + | 02/27/ | Appointment | Radiology | Dhara, | | | 2019 | | | DWA[address] | | | | | | [address] [facility], | | | | | | [place] [address] | | | | | | [phone] | | | | | | | | +--------+ + + + + | 03/04/ | Appointment | Rehabilitation | Genesis Ayon OT | | | 2019 | | | | | +--------+ + + + + | 03/09/ | Office | Orthopedic Surgery | Jeffrey Gandhi, | | 2019 | Visit | | [address] | | | | | | [place] [address] | | | | | | [phone] | | | | | | | [...] | Office | Obstetrics and | Emily vAery | | 2019 | Visit | Gynecology | DO Jackelyn Garcia | | | | | | [address] | | | | | | [place] | | | | | | [address] | | | | | | [phone] | | | | | | | [...] | | | | | [place] [address] | | | | | | [phone] | | | | | | | | | | | | Azul Yeboah, | | | | | | MD [address] | | | | | | [place] | | | | | | [place] [address] | | | | | | [phone] | | | | | | | [...] | | | | | | [place] [address] | | | | | | [phone] | | | | | | | | +--------+ + + + + documented as of this encounter Visit Diagnoses Not on filedocumented in this encounter"
--- OUTSIDE RECORDS SUMMARY | ~2020-02-18 | XMS | Encounter Summary ---
Demographics + + + | Address | [address] | | | [place] [address] | + + + | Home Phone [...] Team Providers + +------+ + | Care Geographic Area Intelligence Officer Name | Role | Phone | + +------+ + PCP | Unavailable | + +------+ + Encounter Details +--------+ + + + + | Date | Type | Department | Care Team | Description | +--------+ + + + + | 04/12/ | Hospital | [place] [facility] | Jenise Benitez, | | | 2016 | Encounter | [facility] | GEOGRAPHIC INFORMATION SCIENTIST [address] | | | | | [place] | [place] [address] | | | | | [place], [place] | [phone] | | | | | [address] | | | | | | [phone] | | | +--------+ + + + [...] | | 2019 | | | DO [facility] | | | | | | [place], [place] [address] | | | | | | [phone] | | | | | | | [...] [address] | | | | | | [phone] | | | | | | | | | | | | Genesis Ayon, SUSAN | | +--------+ + + + + | 02/25/ | Office | Primary Care | Erika Ernst, | | | 2019 | Visit | | DO [address] | | | | | | [place] [address] | | | | | | [phone] | | | | | | | [...] | | | | | [place] [address] | | | | | | [phone] | | | | | | | | +--------+ + + + + | 02/27/ | Appointment | Radiology | Dhara, | | 2019 | | | DWAINE [address] | | | | | | [address] [facility] [place], | | | | | | [place] [address] | | | | | | [phone] | | | | | | | [...] | | | | | [place] [address] | | | | | | [phone] | | | | | | | [...] [place] | | | | | | [address] | | | | | | [phone] | | | | | | | [...] | | | | | [place] [address] | | | | | | [phone] | | | | | | | | | | | | Azul Yeboah, | | | | | | MD [address] | | | | | | [place] [address] [place] | | | | | | [place] [address] | | | | | | [phone] | | | | | | | [...] | | | | | | [place] [address] | | | | | | [phone] | | | | | | | [...] cardiopulmonary process. Job | | | No.: [id number] Read By: DAYANA COON MD Released By: [...] acute cardiopulmonary process. | | Job No.: [id number] Read By: DAYANA COON MD Released By: [...] | | | | | |Job No.: [id number] | | | |Read By: DAYANA COON MD | | | |Released By: DAYANA COON MD | |Date: 04/12/2016 18:28 | | | | | + + documented in this encounter Visit Diagnoses Not on filedocumented in this encounter"
--- OUTSIDE RECORDS SUMMARY | ~2020-02-18 | XMS | Encounter Summary ---
Demographics + + + | Address | [address] | | | [place] [address] | + + + | Home Phone [...] Team Providers + +------+ + | Care Hearing Officer Name | Role | Phone | [...] | [facility] [address] | [place] [address] | | | | | [address] [place], | [phone] | | | | | [place] [address] | | | | | | [phone] | | | +--------+ + + + [...] | | | | | [place] [address] | | | | | | [phone] | | | | | | | [...] [address] | | | | | | [phone] | | | | | | | | | | | | Genesis Ayon, OT | | +--------+ + + + + | 02/25/ | Office | Primary Care | Erika Ernst, | | | 2019 | Visit | | DO [address] | | | | | | [place] [address] | | | | | | [phone] | | | | | | | [...] | | | | | [place] [address] | | | | | | [phone] | | | | | | | | +--------+ + + + + | 02/27/ | Appointment | Radiology | Dhara, | | | 2019 | | | DWAINE Ross [address] | | | | [address] [place], | | | | | | [place] [address] | | | | | | [phone] | | | | | | | [...] [place] | | | | | | [place] [address] | | | | | | [phone] | | | | | | | [...] [place] | | | | | | [address] | | | | | | [phone] | | | | | | | [...] | | | | | [place] [address] | | | | | | [phone] | | | | | | | | | | | | Azul Yeboah, | | | | | | MD [address] | | | | | | [place] | | | | | | [place] [address] | | | | | | [phone] | | | | | | | [...] | | | | | | [place] [address] | | | | | | [phone] | | | | | | | | +--------+ + + + + documented as of this encounter Visit Diagnoses Not on filedocumented in this encounter"
--- OUTSIDE RECORDS SUMMARY | ~2020-02-18 | XMS | Encounter Summary ---
Demographics + + + | Address | [address] | | | [place] [address] | + + + | Home Phone [...] + + + + | 09/16/ | [facility] | [place] | Erika Ernst, | | | 2016 | Encounter | [facility] | DO [address] | | | | | [facility] [address] | [facility] [place] [address] | | | | | [address] [place], | [phone] | | | | | [place] [address] | | | | | | [phone] | | | +--------+ + + + [...] 2019 | | | DO [facility] | | | | | | [place], [place] [address] | | | | | | [phone] | | | | | | | | | | | | Julia Fisher, | | | | | | PT | | +--------+ + + + + | 02/18/ | Appointment | Rehabilitation | Erika Ernst, | | | 2019 | | | DO [address] | | | | | | [place] [address] | | | | | | [phone] | | | | | | | | | | | | Genesis Ayon, SUSAN | | +--------+ + + + + | 02/25/ | Office | Primary Care | Erika Ernst, | | | 2019 | Visit | | DO [address] | | | | | | [place] [address] | | | | | | [phone] | | | | | | | [...] | | | | | [place] [address] | | | | | | [phone] | | | | | | | | +--------+ + + + + | 02/27/ | Appointment | Radiology | Dhara, | | 2019 | | | [address] | | | | | | [address] [facility] [place], | | | | | | [place] [address] | | | | | | [phone] | | | | | | | [...] | | | | | [place] [address] | | | | | | [phone] | | | | | | | [...] [place] | | | | | | [address] | | | | | | [phone] | | | | | | | [...] [address] | | | | | | [phone] | | | | | | | | | | | | Azul Yeboah, | | | | | | MD [address] | | | | | | [place] | | | | | | [place] [address] | | | | | | [phone] | | | | | | | [...] | | | | | | [place] [address] | | | | | | [phone] | | | | | | | | +--------+ + + + + documented as of this encounter Visit Diagnoses Not on filedocumented in this encounter"
--- OUTSIDE RECORDS SUMMARY | ~2020-02-18 | XMS | Encounter Summary ---
Demographics + + + | Address | [address] | | | [place] [address] | + + + | Home Phone [...] Providers + +------+ + | Care Public Employment Mediator Name | Role | Phone | + [...] Results | | 2017 | | [facility] | IMAGING ADMINISTRATOR | | | | | [facility] [address] | | | | | | [address] [facility] [place], | | | | | | [place] [address] | | | | | | [phone] | | | +--------+ + + + [...] | | 2019 | | | DO [facility] | | | | | | [place] [address] | | | | | | [phone] | | | | | | | | | | | | Julia Fisher, | | | | | | PT | | +--------+ + + + + | 05/20/ | Appointment | Rehabilitation | Erika Ernst, | | | 2019 | | | DO [address] | | | | | | [place] [address] | | | | | | [phone] | | | | | | | | | | | | Genesis Ayon OT | | +--------+ + + + + | 02/25/ | Office | Primary Care | Erika Ernst, | | | 2019 | Visit | | DO [address] | | | | | | [place] [address] | | | | | | [phone] | | | | | | | [...] | | | | | [place] [address] | | | | | | [phone] | | | | | | | | +--------+ + + + + | 02/27/ | Appointment | Radiology | Dhara, | | | 2019 | | | [address] | | | | | | [address] [facility] [place], | | | | | | [place] [address] | | | | | | [phone] | | | | | | | [...] | | | | | [place] [address] | | | | | | [phone] | | | | | | | [...] [place] | | | | | | [address] | | | | | | [phone] | | | | | | | [...] | | | | | [place] [address] | | | | | | [phone] | | | | | | | | | | | | Azul Yeboah, | | | | | | MD [address] | | | | | | [place] | | | | | | [place] [address] | | | | | | [phone] | | | | | | | [...] | | | | | | [place] [address] | | | | | | [phone] | | | | | | | | +--------+ + + + + documented as of this encounter Visit Diagnoses Not on filedocumented in this encounter"
--- OUTSIDE RECORDS SUMMARY | ~2020-02-18 | XMS | Encounter Summary ---
Demographics + + + | Address | [address] | | | [place] [address] | + + + | Home Phone [...] Providers + +------+ + | Care Wire Drawing Machine Tender Name | Role | Phone [...] Advice Only | | 2019 | | [facility] | RN | | | | | [facility] [address] | | | | | | [address] [facility] [place], | | | | | | [place] [address] | | | | | | [phone] | | | +--------+ + + + [...] | | | | | [place] [address] | | | | | | [phone] | | | | | | | | | | | | Julia Fisher, | | | | | | PT | | +--------+ + + + + | 02/18/ | Appointment | Rehabilitation | Erika Ernst, | | | 2019 | | | DO [address] | | | | | | [place] [address] | | | | | | [phone] | | | | | | | | | | | | Genesis Ayon OT | | +--------+ + + + + | 02/25/ | Office | Primary Care | Erika Ernst, | | | 2019 | Visit | | DO [address] | | | | | | [place] [address] | | | | | | [phone] | | | | | | | [...] | | | | | [place] [address] | | | | | | [phone] | | | | | | | | +--------+ + + + + | 02/27/ | Appointment | Radiology | Dhara, | | | 2019 | | | D[address] | | | | | | [address] [facility] [place], | | | | | | [place] [address] | | | | | | [phone] | | | | | | | [...] | | | | | [place] [address] | | | | | | [phone] | | | | | | | [...] [place] | | | | | | [address] | | | | | | [phone] | | | | | | | [...] | | | | | [place] [address] | | | | | | [phone] | | | | | | | | | | | | Azul Yeboah, | | | | | | MD [address] | | | | | | [place] | | | | | | [place] [address] | | | | | | [phone] | | | | | | | | +--------+ + + + + | 04/08/ | Appointment | Nutrition | Janel Webster | | | 2019 | | | [address] | | +--------+ + + + + | 05/21/ | Office | Neurology | Dhara, | | | 2019 | Visit | | Karyanne, SUPERVISOR [employer] [address] | | | | | | [address] [place], | | | | | | [place] [address] | | | | | | [phone] | | | | | | | | +--------+ + + + + documented as of this encounter Visit Diagnoses Not on filedocumented in this encounter"
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
--- OUTSIDE RECORDS SUMMARY | ~2020-02-18 | XMS | Encounter Summary ---
Demographics + + + | Address | [address] | | | [place] [address] | + + + | Home Phone [...] Team Providers + +------+ + | Care Trial Mgr Name | Role | Phone | [...] | [place], [place] | [place] [address] | Dx); Right wrist | | | | [address] | [phone] | pain | | | | [phone] | | | +--------+---------+ + + + [...] E.C.U. Tendon; Surgeon: Inocencio Noriega MD; Location: [facility] SURGERY RIGHT KIDNER PROCEDURE 01/20/2016 Surgeon: Fani Mahajan MD; Location: [facility] TENDON RELEASE TONSILLECTOMY WISDOM TOOTH EXTRACTION Family History Problem Relation Age of Onset Other (see comment) Mother gallbladder disease Diabetes Mother Heart disease Mother Hypertension Father Other (see comment) Father arrhymthmia Breast cancer Sister Breast cancer Maternal Grandmother Heart attack Maternal Aunt [place] Hypertension Maternal Uncle Social History Tobacco Use [...] made to ensure accuracy. However, inadvertent computerized pumper hand errors may be pre sent. documented in thi s encounter Plan of Treatment +--------+ + + + + | Date | Type | Specialty | Care Team | Description | +--------+ + + + + | 02/18/ | Appointment | Rehabilitation | Erika Ernst, | | | 2019 | | | DO [address] | | | | | | [place] [address] | | | | | | [phone] | | | | | | | | | | | | Julia Fisher, | | | | | | PT | | +--------+ + + + + | 02/18/ | Appointment | Rehabilitation | Erika Ernst, | | | 2019 | | | DO [address] | | | | | | [place] [address] | | | | | | [phone] | | | | | | | | | | | | Genesis Ayon OT | | +--------+ + + + + | 02/25/ | Office | Primary Care | Erika Ernst, | | | 2019 | Visit | | DO [address] | | | | | | [place] [address] | | | | | | [phone] | | | | | | | [...] | | | | | [place] [address] | | | | | | [phone] | | | | | | | | +--------+ + + + + | 02/27/ | Appointment | Radiology | Dhara, | | | 2019 | | | [address] | | | | | | [facility] | | | | | | [place] [address] | | | | | | [phone] | | | | | | | [...] [place] | | | | | | [place] [address] | | | | | | [phone] | | | | | | | [...] [place] | | | | | | [address] | | | | | | [phone] | | | | | | | [...] | | | | | [place] [address] | | | | | | [phone] | | | | | | | | | | | | Azul Yeboah, | | | | | | MD [address] | | | | | | [place] | | | | | | [place] [address] | | | | | | [phone] | | | | | | | [...] | | | | | | [place] [address] | | | | | | [phone] | | | | | | | | +--------+ + + + + documented as of this encounter Visit Diagnoses + + | Diagnosis | + + | S/P right ECU tenosynovectomy on 03/20/19 - Primary | + + | Right wrist pain Pain in joint, forearm | + + documented in this encounter"
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
--- OUTSIDE RECORDS SUMMARY | ~2020-02-18 | XMS | Encounter Summary ---
Demographics + + + | Address | [address] | | | [place] [address] | + + + | Home Phone [...] Team Providers + +------+ + | Care Prescription Clerk Name | Role | Phone | [...] | | | [facility] [address] | [facility] [place] [address] | | | | | [address] [place], | [phone] | | | | | [place] [address] | | | | | | [phone] | | | +--------+ + + + [...] | 2019 | | | DO [address] [place] | | | | | | [place] [address] | | | | | | [phone] | | | | | | | | | | | | Julia Fisher, | | | | | | PT | | +--------+ + + + + | 02/18/ | Appointment | Rehabilitation | Erika Ernst, | | | 2019 | | | DO [address] | | | | | | [place] [address] | | | | | | [phone] | | | | | | | | | | | | Genesis Ayon OT | | +--------+ + + + + | 02/25/ | Office | Primary Care | Erika Ernst, | | | 2019 | Visit | | DO [address] | | | | | | [place] [address] | | | | | | [phone] | | | | | | | [...] | | | | | [place] [address] | | | | | | [phone] | | | | | | | | +--------+ + + + + | 02/27/ | Appointment | Radiology | Dhara, | | | 2019 | | | [address] | | | | | | 4TH [facility], | | | | | | [place] [address] | | | | | | [phone] | | | | | | | | +--------+ + + + + | 03/04/ | Appointment | Rehabilitation | Genesis Ayon OT | | | 2019 | | | | | +--------+ + + + + | 03/09/ | Office | Orthopedic Surgery | Jeffrey Gandhi, | | | 2019 | Visit | | [address] | | | | | | [place] [address] | | | | | | [phone] | | | | | | | [...] [place] | | | | | | [address] | | | | | | [phone] | | | | | | | [...] | | | | | [place] [address] | | | | | | [phone] | | | | | | | | | | | | Azul Yeboah, | | | | | | MD [address] | | | | | | [place] | | | | | | [place] [address] | | | | | | [phone] | | | | | | | [...] | | | | | | [place] [address] | | | | | | [phone] | | | | | | | | +--------+ + + + + documented as of this encounter Visit Diagnoses Not on filedocumented in this encounter"
--- OUTSIDE RECORDS SUMMARY | ~2020-02-18 | XMS | Encounter Summary ---
Demographics + + + | Address | [address] | | | [place] [address] | + + + | Home Phone [...] Providers + +------+ + | Care Grounds Cleaner Name | Role | Phone | [...] 12/29/ | Telephone | [facility] [facility] | Evelyn Malik, | Care Coordination | | 2019 | | [facility] | Case | | | | | [facility] [address] | Glue Line Operator-Clinical | | | | | [address] [facility] [place], | | | | | | [place] [address] | | | | | | [phone] | | | +--------+ + + + [...] | | | | | [place] [address] | | | | | | [phone] | | | | | | | | | | | | Julia Fisher, | | | | | | PT | | +--------+ + + + + | 02/18/ | Appointment | Rehabilitation | Erika Ernst, | | | 2019 | | | DO [address] | | | | | | [place] [address] | | | | | | [phone] | | | | | | | | | | | | Genesis Ayon OT | | +--------+ + + + + | 02/25/ | Office | Primary Care | Erika Ernst, | | | 2019 | Visit | | DO [address] [place] | | | | | | [place] [address] | | | | | | [phone] | | | | | | | [...] | | | | | [place] [address] | | | | | | [phone] | | | | | | | | +--------+ + + + + | 02/27/ | Appointment | Radiology | Dhara, | | | 2019 | | | [address] | | | | | | 4TH [facility], | | | | | | [place] [address] | | | | | | [phone] | | | | | | | [...] | | | | | | [place] [address] | | | | | | [phone] | | | | | | | [...] [place] | | | | | | [address] | | | | | | [phone] | | | | | | | [...] | | | | | [place] [address] | | | | | | [phone] | | | | | | | | | | | | Azul Yeboah, | | | | | | MD [address] | | | | | | [place] | | | | | | [place] [address] | | | | | | [phone] | | | | | | | [...] | | | | | | [place] [address] | | | | | | [phone] | | | | | | | | +--------+ + + + + documented as of this encounter Visit Diagnoses Not on filedocumented in this encounter"
--- OUTSIDE RECORDS SUMMARY | ~2020-02-18 | XMS | Encounter Summary ---
Demographics + + + | Address | [address] | | | [place] [address] | + + + | Home Phone [...] Team Providers + +------+ + | Care Crystal Calibrator Name | Role | Phone | + [...] symptoms | | 2019 | Visit | [facility] | MD Caryn [address] | (Primary Dx) | | | | [facility] [address] | [place], [place] | | | | | [address] [facility], | [address] | | | | | [place] [address] | [phone] | | | | | [phone] | | | +--------+---------+ + + + [...] | | | | | [place] [address] | | | | | | [phone] | | | | | | | | | | | | Julia Fisher, | | | | | | PT | | +--------+ + + + + | 02/18/ | Appointment | Rehabilitation | Erika Ernst, | | | 2019 | | | DO [address] | | | | | | [place] [address] | | | | | | [phone] | | | | | | | | | | | | Genesis Ayon, OT | | +--------+ + + + + | 02/25/ | Office | Primary Care | Erika Ernst, | | | 2019 | Visit | | DO [address] | | | | | | [place] [address] | | | | | | [phone] | | | | | | | [...] | | | | | [place] [address] | | | | | | [phone] | | | | | | | | +--------+ + + + + | 02/27/ | Appointment | Radiology | Dhara, | | | 2019 | | | [address] | | | | | | 4TH [facility], | | | | | | [place] [address] | | | | | | [phone] | | | | | | | [...] [place] | | | | | | [place] [address] | | | | | | [phone] | | | | | | | [...] [place] | | | | | | [address] | | | | | | [phone] | | | | | | | [...] | | | | | [place] [address] | | | | | | [phone] | | | | | | | | | | | | Azul Yeboah, | | | | | | MD [address] | | | | | | [place] | | | | | | [place] [address] | | | | | | [phone] | | | | | | | [...] | | | | | | [place] [address] | | | | | | [phone] | | | | | | | | +--------+ + + + + documented as of this encounter Visit Diagnoses + + | Diagnosis | + + | Flu-like symptoms - Primary Influenza with other respiratory manifestations | + + documented in this encounter"
--- OUTSIDE RECORDS SUMMARY | ~2020-02-18 | XMS | Encounter Summary ---
Demographics + + + | Address | [address] | | | [place] [address] | + + + | Home Phone [...] Providers + +------+ + | Care Vessel Crew Member Name | Role | Phone | [...] | | | [facility] [address] | Support Director-Clinical | | | | | 4TH [facility] [place], | | | | | | [place] [address] | | | | | | [phone] | | | +--------+ + + + [...] | | | | | [place] [address] | | | | | | [phone] | | | | | | | | | | | | Julia Fisher, | | | | | | PT | | +--------+ + + + + | 02/18/ | Appointment | Rehabilitation | Erika Ernst, | | | 2019 | | | DO [address] | | | | | | [place] [address] | | | | | | [phone] | | | | | | | | | | | | Genessi Ayon OT | | +--------+ + + + + | 02/25/ | Office | Primary Care | Erika Ernst, | | | 2019 | Visit | | DO [address] [place] | | | | | | [place] [address] | | | | | | [phone] | | | | | | | [...] | | | | | [place] [address] | | | | | | [phone] | | | | | | | | +--------+ + + + + | 02/27/ | Appointment | Radiology | Dhara, | | | 2019 | | | [address] | | | | | | [address]TH [facility], | | | | | | [place] [address] | | | | | | [phone] | | | | | | | | +--------+ + + + + | 03/04/ | Appointment | Rehabilitation | Genesis Ayon OT | | | 2019 | | | | | +--------+ + + + + | 03/09/ | Office | Orthopedic Surgery | Jeffrey Gandhi, | | | 2019 | Visit | | [address] | | | | | | [place] [address] | | | | | | [phone] | | | | | | | [...] [place] | | | | | | [address] | | | | | | [phone] | | | | | | | [...] | | | | | [place] [address] | | | | | | [phone] | | | | | | | | | | | | Azul Yeboah, | | | | | | MD [address] | | | | | | [place] | | | | | | [place] [address] | | | | | | [phone] | | | | | | | [...] | | | | | | [place] [address] | | | | | | [phone] | | | | | | | | +--------+ + + + + documented as of this encounter Visit Diagnoses Not on filedocumented in this encounter"
--- OUTSIDE RECORDS SUMMARY | ~2020-02-18 | XMS | Encounter Summary ---
Demographics + + + | Address | [address] | | | [place] [address] | + + + | Home Phone [...] Team Providers + +------+ + | Care Fulling Mill Operator Name | Role | Phone [...] | Services | | Neuropathy | C, BILINGUAL SALES ASSISTANT [address] | Luis Rubin MD | | | Required | | of right | [address], | [address] | | | | | upper | [place] | [address] [place] | | | | | extremity | [place], [place] | [place] | | | | | Procedures | [address] | [address] Phone: | | | | | [facility] | Phone: | [phone] | | | | | | [phone] | Fax: | | | | | | Fax: | [phone] | | | | | | [phone] | | +--------+ + + + + [...] | Numbness | | | | [place] [address] | | | | | | [phone] | | | +--------+ + + + [...] | | | | | [place] [address] | | | | | | [phone] | | | | | | | | | | | | Julia Fisher, | | | | | | PT | | +--------+ + + + + | 02/18/ | Appointment | Rehabilitation | Erika Ernst, | | | 2019 | | | DO [address] [place] | | | | | | [place] [address] | | | | | | [phone] | | | | | | | | | | | | Genesis Ayon OT | | +--------+ + + + + | 02/25/ | Office | Primary Care | Erika Ernst, | | | 2019 | Visit | | DO [address] [place] | | | | | | [place] [address] | | | | | | [phone] | | | | | | | [...] | | | | | [place] [address] | | | | | | [phone] | | | | | | | | +--------+ + + + + | 02/27/ | Appointment | Radiology | Dhara, | | | 2019 | | | [address] | | | | | | [address] [place], | | | | | | [place] [address] | | | | | | [phone] | | | | | | | | +--------+ + + + + | 03/04/ | Appointment | Rehabilitation | Genesis Ayon OT | | | 2019 | | | | | +--------+ + + + + | 03/09/ | Office | Orthopedic Surgery | Jeffrey Gandhi, | | 2019 | Visit | | [address] [place] | | | | | | [place] [address] | | | | | | [phone] | | | | | | | [...] [place] | | | | | | [address] | | | | | | [phone] | | | | | | | [...] | | | | | [place] [address] | | | | | | [phone] | | | | | | | | | | | | Azul Yeboah, | | | | | | MD [address] | | | | | | [place] | | | | | | [place] [address] | | | | | | [phone] | | | | | | | [...] | | | | | [address] [place], | | | | | | [place] [address] | | | | | | [phone] | | | | | | | [...]
--- OUTSIDE RECORDS SUMMARY | ~2020-02-18 | XMS | Encounter Summary ---
Demographics + + + | Address | [address] | | | [place] [address] | + + + | Home Phone [...] Team Providers + +------+ + | Care Buttonhole Marker Name | Role | Phone | [...] Medication Refill | | 2017 | | [facility] | [address] | | | | | MEDICAL CLINIC [address] | [place] [address] | | | | | [address] [place], | [phone] | | | | | [place] [address] | | | | | | [phone] | | | +--------+--------+ + + + [...] | | | | | [place] [address] | | | | | | [phone] | | | | | | | | | | | | Julia Fisher, | | | | | | PT | | +--------+ + + + + | 02/18/ | Appointment | Rehabilitation | Erika Ernst, | | | 2019 | | | DO [address] | | | | | | [place] [address] | | | | | | [phone] | | | | | | | | | | | | Genesis Ayon OT | | +--------+ + + + + | 02/25/ | Office | Primary Care | Erika Ernst, | | | 2019 | Visit | | DO [address] | | | | | | [place] [address] | | | | | | [phone] | | | | | | | [...] | | | | | [place] [address] | | | | | | [phone] | | | | | | | | +--------+ + + + + | 02/27/ | Appointment | Radiology | Dhara, | | | 2019 | | | [address] | | | | | | 4TH [facility], | | | | | | [place] [address] | | | | | | [phone] | | | | | | | [...] | | | | | [place] [address] | | | | | | [phone] | | | | | | | [...] [place] | | | | | | [address] | | | | | | [phone] | | | | | | | [...] | | | | | [place] [address] | | | | | | [phone] | | | | | | | | | | | | Azul Yeboah, | | | | | | MD [address] | | | | | | [place] | | | | | | [place] [address] | | | | | | [phone] | | | | | | | [...] | | | | | | [place] [address] | | | | | | [phone] | | | | | | | | +--------+ + + + + documented as of this encounter Visit Diagnoses Not on filedocumented in this encounter"
--- OUTSIDE RECORDS SUMMARY | ~2020-02-18 | XMS | Encounter Summary ---
Demographics + + + | Address | [address] | | | [place] [address] | + + + | Home Phone [...] Team Providers + +------+ + | Care Transition Of Care Specialist Name | Role | Phone | + +------+ + | Erika Ernst DO | PCP | | + +------+ + Reason for Visit + + + | Reason | Comments | + + + | Follow-up | muscle relaxer | + + + Encounter Details +--------+---------+ + + + | Date | Type | Department | Care Team | Description | +--------+---------+ + + + | 11/05/ | Office | [place] [facility] | Erika Ernst, | TMJ | | 2020 | Visit | [facility] | DO [address] | (temporomandibular | | | | MEDICAL CLINIC [address] | [place] [address] | joint disorder) | | | | [address] [place], | [phone] | (Primary Dx); | | | | [place] [address] | | Essential | | | | [phone] | | hypertension; | | | | | | Anxiety with | | | | | | somatization; Class | | | | | | [...] + | Blood Pressure | 130/88 | 11/05/2019 7:23 AM | | | | | PST | | + + + + + | Pulse | 81 | 11/05/2019 7:23 AM | | | | | PST | | + + + + + | Temperature | - | - | | + + + + + | Respiratory Rate | 18 | 11/05/2019 7:23 AM | | | | | PST | | + + + + + | Oxygen Saturation | 99% | 11/05/2019 7:23 AM | | | | | PST | | + + + + + | Inhaled Oxygen | - | - | | | Concentration | | | | + + + + + | Weight | 165.1 kg (364 lb) | 11/05/2019 7:23 AM | | | | | PST | | + + + + + | Height | 177.8 cm (5' 10") | 11/05/2019 7:23 AM | | | | | PST | | + + + + + | Body Mass Index | 52.23 | 11/05/2019 7:23 AM | | | | | PST | | + + + + + documented in this encounter Erika Kumar DO - 11/05/2019 7:20 AM PSTFormatting of this note might be different fro m the original. Subjective: Patient ID: Andrea Suh is a 29 y.o. female. Here to FU on issues. She has a lot of anxiety and comes to office frequently with multipl e physical complaints. HTN is well controlled today. TMJ and is working with oral surgeon. He wanted her to take muscle relaxant but she is afraid to due to SE and states her BP machi ne at home states she has irregular heart rate. We will check EMG today. Has had normal EKG and holter in the past. No symptoms. Obesity non-smoker. Aunt with [place]. Review of Systems As above Objective: BP 130/88 | Pulse 81 | Resp 18 | Ht 1.778 m (5' 10") | Wt (!) 165.1 kg (364 lb) | SpO2 99% | BMI 52.23 kg/m Physical Exam Constitutional: Appearance: Normal appearance. HENT: Head: Normocephalic and atraumatic. Eyes: Extraocular Movements: Extraocular movements intact. Cardiovascular: Rate and Rhythm: Normal rate and regular rhythm. Heart sounds: No murmur. Pulmonary: Effort: Pulmonary effort is normal. No respiratory distress. Breath sounds: Normal breath sounds. Skin: Capillary Refill: Capillary refill takes less than 2 seconds. Neurological: General: No focal deficit present. Mental Status: She is alert and oriented to person, place, and time. Gait: Gait normal. Psychiatric: Mood and Affect: Mood normal. Behavior: Behavior normal. Thought Content: Thought content normal. Judgment: Judgment normal. Assessment: 1. TMJ (temporomandibular joint disorder) 2. Essential hypertension 3. Anxiety with somatization ECG 12 lead 4. Class 3 severe obesity due to excess calories without serious comorbidity with body mass index (BMI) of 50.0 to 59.9 in adult (HCC) Plan: She will continue work up with oral surgeon. Continue current HTN control. EKG today low vo ltage and patient anxiety and obesity causing difficulty getting reading. Is sinus rhythm no thing acute, low voltage. Recommend weight loss and heart healthy diet. documented in this en counter Plan of Treatment +--------+ + + + + | Date | Type | Specialty | Care Team | Description | +--------+ + + + + | 02/18/ | Appointment | Rehabilitation | Erika Ernst, | | | 2019 | | | DO [address] | | | | | | [place] [address] | | | | | | [phone] | | | | | | | | | | | | Julia Fisher, | | | | | | PT | | +--------+ + + + + | 02/18/ | Appointment | Rehabilitation | Erika Ernst, | | | 2019 | | | DO [address] | | | | | | [place] [address] | | | | | | [phone] | | | | | | | | | | | | Genesis Ayon, OT | | +--------+ + + + + | 02/25/ | Office | Primary Care | Erika Ernst, | | | 2019 | Visit | | DO [address] | | | | | | [place] [address] | | | | | | [phone] | | | | | | | [...] | | | | | [place] [address] | | | | | | [phone] | | | | | | | | +--------+ + + + + | 02/27/ | Appointment | Radiology | Dhara, | | | 2019 | | | [address] | | | | | | [address] [place], | | | | | | [place] [address] | | | | | | [phone] | | | | | | | | +--------+ + + + + | 03/04/ | Appointment | Rehabilitation | Genesis Ayon OT | | | 2019 | | | | | +--------+ + + + + | 03/09/ | Office | Orthopedic Surgery | Jeffrey Gandhi, | | | 2019 | Visit | | [place] [address] [facility] | | | | | | [place] [address] | | | | | | [phone] | | | | | | | [...] [place] | | | | | | [address] | | | | | | [phone] | | | | | | | [...] | | | | | [place] [address] | | | | | | [phone] | | | | | | | | | | | | Azul Yeboah, | | | | | | MD [address] | | | | | | [place] | | | | | | [place] [address] | | | | | | [phone] | | | | | | | [...] | | | | | | [place] [address] | | | | | | [phone] | | | | | | | | +--------+ + + + + + +------+--------+ + + | Name | Type | Priori | Associated Diagnoses | Order Schedule | | | | ty | | | + +------+--------+ + + | ECG 12 lead | ECG | Routin | Anxiety with | 1 Occurrences | | | | e | somatization | starting 11/05/2019 | | | | | | until 11/05/2020 | + +------+--------+ + + documented as of this encounter Procedures + +--------+ + + + | Procedure Name | Priori | Date/Time | Associated Diagnosis | Comments | | | ty | | | | + +--------+ + + + | ECG - EXTERNAL SCAN | | 11/07/2019 | | Results for this | | | | 12:00 AM | | procedure are in the | | | | PST | | results section. | + +--------+ + + + documented in this encounter Results ECG - EXTERNAL SCAN (11/07/2019 12:00 AM PST) + + + | Narrative | Performed At | + + + | Ordered by an | | | unspecified provider. | | + + + documented in this encounter Visit Diagnoses + + | Diagnosis | + + | TMJ (temporomandibular joint disorder) - Primary Temporomandibular joint disorders, | | unspecified | + + | Essential hypertension Unspecified essential hypertension | + + | Anxiety with somatization Anxiety state, unspecified | + + | Class 3 severe obesity due to excess calories without serious comorbidity with body | | mass index (BMI) of 50.0 to 59.9 in adult (HCC) | + + documented in this encounter
--- OUTSIDE RECORDS SUMMARY | ~2020-02-18 | XMS | Encounter Summary ---
Demographics + + + | Address | [address] | | | [place] [address] | + + + | Home Phone [...] Team Providers + +------+ + | Care Assembly Supervisor Name | Role | Phone | + +------+ + PCP | Unavailable | + +------+ + Encounter Details +--------+ + + + + | Date | Type | Department | Care Team | Description | +--------+ + + + + | 04/12/ | [facility] | [facility] | Jenise Benitez, | | | 2016 | Encounter | [facility] | [employer] [address] | | | | | MEDICAL CLINIC [address] | [place] [address] | | | | | [address] [place], | [phone] | | | | | [place] [address] | | | | | | [phone] | | | +--------+ + + + [...] | | 2020 | | | DO [address] [place] [address] | | | | | | [place], [place] [address] | | | | | | [phone] | | | | | | | | | | | | Julia Fisher, | | | | | | PT | | +--------+ + + + + | 02/18/ | Appointment | Rehabilitation | Erika Ernst, | | | 2019 | | | DO [address] | | | | | | [place] [address] | | | | | | [phone] | | | | | | | | | | | | Genesis Ayon, SUSAN | | +--------+ + + + + | 02/25/ | Office | Primary Care | Erika Ernst, | | | 2019 | Visit | | DO [address] | | | | | | [place] [address] | | | | | | [phone] | | | | | | | [...] | | | | | [place] [address] | | | | | | [phone] | | | | | | | | +--------+ + + + + | 02/27/ | Appointment | Radiology | Dhara, | | | 2019 | | | [address] | | | | | | [address] [place], | | | | | | [place] [address] | | | | | | [phone] | | | | | | | [...] | | | | | [place] [address] | | | | | | [phone] | | | | | | | [...] [place] | | | | | | [address] | | | | | | [phone] | | | | | | | [...] | | | | | [place] [address] | | | | | | [phone] | | | | | | | | | | | | Azul Yeboah, | | | | | | MD [address] | | | | | | [place] | | | | | | [place] [address] | | | | | | [phone] | | | | | | | [...] | | | | | | [place] [address] | | | | | | [phone] | | | | | | | | +--------+ + + + + documented as of this encounter Visit Diagnoses Not on filedocumented in this encounter"
--- OUTSIDE RECORDS SUMMARY | ~2020-02-18 | XMS | Encounter Summary ---
Demographics + + + | Address | [address] | | | [place] [address] | + + + | Home Phone [...] Team Providers + +------+ + | Care Hold Worker Name | Role | Phone | [...] [address] [place] | [place] [address] | | | | | [place], [place] | [phone] | | | | | [address] | | | | | | [phone] | | | +--------+ + + + [...] | | 2019 | | | DO [facility] | | | | | | [place] [address] | | | | | | [phone] | | | | | | | | | | | | Julia Fisher, | | | | | | PT | | +--------+ + + + + | 02/18/ | Appointment | Rehabilitation | Erika Ernst, | | | 2019 | | | DO [address] | | | | | | [place] [address] | | | | | | [phone] | | | | | | | | | | | | Genesis Ayon, SUSAN | | +--------+ + + + + | 02/25/ | Office | Primary Care | Erika Ernst, | | | 2019 | Visit | | DO [address] | | | | | | [place] [address] | | | | | | [phone] | | | | | | | [...] | | | | | [place] [address] | | | | | | [phone] | | | | | | | | +--------+ + + + + | 02/27/ | Appointment | Radiology | Dhara, | | 2019 | | | [address] | | | | | | [address] [place], | | | | | | [place] [address] | | | | | | [phone] | | | | | | | [...] | | | | | [place] [address] | | | | | | [phone] | | | | | | | [...] [place] | | | | | | [address] | | | | | | [phone] | | | | | | | [...] | | | | | [place] [address] | | | | | | [phone] | | | | | | | | | | | | Azul Yeboah, | | | | | | MD [address] | | | | | | [place] | | | | | | [place] [address] | | | | | | [phone] | | | | | | | [...] | | | | | | [place] [address] | | | | | | [phone] | | | | | | | | +--------+ + + + + documented as of this encounter Visit Diagnoses Not on filedocumented in this encounter"
--- OUTSIDE RECORDS SUMMARY | ~2020-02-18 | XMS | Encounter Summary ---
Demographics + + + | Address | [address] | | | [place] [address] | + + + | Home Phone [...] Team Providers + +------+ + | Care Dispatcher Service Name | Role | Phone | + +------+ + | Erika Ernst DO | PCP | | + +------+ + Reason for Visit + + + | Reason | Comments | + + + | Care Coordination | | + + + | Fever | | + + + Encounter Details +--------+ + + + + | Date | Type | Department | Care Team | Description | +--------+ + + + + | 01/09/ | Telephone | [place] [facility] | Erika Ernst, | Care Coordination; | | 2019 | | [facility] | DO [address] | Fever | | | | MEDICAL CLINIC [address] | [facility] [place] [address] | | | | | [address] [place], | [phone] | | | | | [place] [address] | | | | | | [phone] | | | +--------+ + + + [...] | | | | | [place] [address] | | | | | | [phone] | | | | | | | | | | | | Julia Fisher, | | | | | | PT | | +--------+ + + + + | 02/18/ | Appointment | Rehabilitation | Erika Ernst, | | | 2019 | | | DO [address] | | | | | | [place] [address] | | | | | | [phone] | | | | | | | | | | | | Genesis Ayon, OT | | +--------+ + + + + | 02/25/ | Office | Primary Care | Erika Ernst, | | | 2019 | Visit | | DO [address] | | | | | | [place] [address] | | | | | | [phone] | | | | | | | [...] | | | | | [place] [address] | | | | | | [phone] | | | | | | | | +--------+ + + + + | 02/27/ | Appointment | Radiology | Dhara, | | | 2019 | | | [address] | | | | | | 4TH [facility], | | | | | | [place] [address] | | | | | | [phone] | | | | | | | | +--------+ + + + + | 03/04/ | Appointment | Rehabilitation | Genesis Ayon OT | | 2019 | | | | | +--------+ + + + + | 03/09/ | Office | Orthopedic Surgery | Jeffrey Gandhi, | | | 2019 | Visit | | [address] | | | | | | [place] [address] | | | | | | [phone] | | | | | | | [...] [place] | | | | | | [address] | | | | | | [phone] | | | | | | | [...] | | | | | [place] [address] | | | | | | [phone] | | | | | | | | | | | | Azul Yeboah, | | | | | | MD [address] | | | | | | [place] | | | | | | [place] [address] | | | | | | [phone] | | | | | | | [...] | | | | | | [place] [address] | | | | | | [phone] | | | | | | | | +--------+ + + + + documented as of this encounter Visit Diagnoses Not on filedocumented in this encounter"
--- OUTSIDE RECORDS SUMMARY | ~2020-02-18 | XMS | Encounter Summary ---
Demographics + + + | Address | [address] | | | [place] [address] | + + + | Home Phone [...] Team Providers + +------+ + | Care Poured Wall Foreman Name | Role | Phone | [...] Results, Imaging | | 2020 | | [facility] | DWAINE Huynh | | | | | WALK[facility]IN [facility] [address] | [address] [facility] | | | | | [address]TH [facility], | [place] [address] | | | | | [place] [address] | [phone] | | | | | [phone] | | | +--------+ + + + [...] | | | | | [place] [address] | | | | | | [phone] | | | | | | | | | | | | Julia Fisher, | | | | | | PT | | +--------+ + + + + | 02/18/ | Appointment | Rehabilitation | Erika Ernst, | | | 2019 | | | DO [address] | | | | | | [place] [address] | | | | | | [phone] | | | | | | | | | | | | Genesis Ayon OT | | +--------+ + + + + | 02/25/ | Office | Primary Care | Erika Ernst, | | | 2019 | Visit | | DO [address] | | | | | | [place] [address] | | | | | | [phone] | | | | | | | [...] | | | | | [place] [address] | | | | | | [phone] | | | | | | | | +--------+ + + + + | 02/27/ | Appointment | Radiology | Dhara, | | | 2019 | | | [address] | | | | | | [address] [place], | | | | | | [place] [address] | | | | | | [phone] | | | | | | | [...] [place] | | | | | | [place] [address] | | | | | | [phone] | | | | | | | [...] [place] | | | | | | [address] | | | | | | [phone] | | | | | | | [...] | | | | | [place] [address] | | | | | | [phone] | | | | | | | | | | | | Azul Yeboah, | | | | | | MD [address] | | | | | | [place] | | | | | | [place] [address] | | | | | | [phone] | | | | | | | [...] | | | | | | [place] [address] | | | | | | [phone] | | | | | | | | +--------+ + + + + documented as of this encounter Visit Diagnoses Not on filedocumented in this encounter"
--- OUTSIDE RECORDS SUMMARY | ~2020-02-18 | XMS | Encounter Summary ---
Demographics + + + | Address | [address] | | | [place] [address] | + + + | Home Phone [...] Team Providers + +------+ + | Care Cement Boat And Barge Loader Name | Role | Phone | [...] | | [place] | [place] [address] | | | | | [address] | [phone] | | | | | [phone] | | | +--------+ + + + [...] | | | | | [place] [address] | | | | | | [phone] | | | | | | | | | | | | Julia Fisher, | | | | | | PT | | +--------+ + + + + | 02/18/ | Appointment | Rehabilitation | Erika Ernst, | | | 2019 | | | DO [address] | | | | | | [place] [address] | | | | | | [phone] | | | | | | | | | | | | Genesis Ayon, OT | | +--------+ + + + + | 02/25/ | Office | Primary Care | Eirka Ernst, | | | 2019 | Visit | | DO [address] | | | | | | [place] [address] | | | | | | [phone] | | | | | | | [...] | | | | | [place] [address] | | | | | | [phone] | | | | | | | | +--------+ + + + + | 02/27/ | Appointment | Radiology | Dhara, | | | 2019 | | | [address] | | | | | | [address] [place], | | | | | | [place] [address] | | | | | | [phone] | | | | | | | | +--------+ + + + + | 03/04/ | Appointment | Rehabilitation | Genesis Ayon OT | | | 2019 | | | | | +--------+ + + + + | 03/09/ | Office | Orthopedic Surgery | Jeffrey Gandhi, | | | 2019 | Visit | | [address] [facility] | | | | | | [place] [address] | | | | | | [phone] | | | | | | | [...] [place] | | | | | | [address] | | | | | | [phone] | | | | | | | | +--------+ + + + + | 03/25/ | Appointment | Rehabilitation | Gneesis Ayon OT | | | 2019 | | | | | +--------+ + + + + | 04/08/ | Office | Neurology | Erika Ernst, | | | 2019 | Visit | | DO [address] | | | | | | [place] [address] | | | | | | [phone] | | | | | | | | | | | | Azul Yeboah, | | | | | | [address] | | | | | | [place] | | | | | | [place] [address] | | | | | | [phone] | | | | | | | [...] | | | | | | [place] [address] | | | | | | [phone] | | | | | | | | +--------+ + + + + documented as of this encounter Visit Diagnoses Not on filedocumented in this encounter"
--- OUTSIDE RECORDS SUMMARY | ~2020-02-18 | XMS | Encounter Summary ---
Demographics + + + | Address | [address] | | | [place] [address] | + + + | Home Phone [...] Providers + +------+ + | Care Veneer Taping Machine Offbearer Name | Role | Phone | + [...] | [address] [place], [place] | [place] [address] | | | | | [address] | [phone] | | | | | [phone] | | | +--------+ + + + [...] | | | | | [place] [address] | | | | | | [phone] | | | | | | | | | | | | Julia Fisher, | | | | | | PT | | +--------+ + + + + | 02/18/ | Appointment | Rehabilitation | Erika Ernst, | | | 2019 | | | DO [address] | | | | | | [place] [address] | | | | | | [phone] | | | | | | | | | | | | Genesis Ayon OT | | +--------+ + + + + | 02/25/ | Office | Primary Care | Erika Ernst, | | | 2019 | Visit | | DO [address] | | | | | | [place] [address] | | | | | | [phone] | | | | | | | [...] | | | | | [place] [address] | | | | | | [phone] | | | | | | | | +--------+ + + + + | 02/27/ | Appointment | Radiology | Dhara, | | | 2019 | | | [address] | | | | | | [address]TH [facility], | | | | | | [place] [address] | | | | | | [phone] | | | | | | | [...] [place] | | | | | | [place] [address] | | | | | | [phone] | | | | | | | [...] [place] | | | | | | [address] | | | | | | [phone] | | | | | | | [...] | | | | | [place] [address] | | | | | | [phone] | | | | | | | | | | | | Azul Yeboah, | | | | | | MD [address] | | | | | | [place] | | | | | | [place] [address] | | | | | | [phone] | | | | | | | [...] | | | | | | [place] [address] | | | | | | [phone] | | | | | | | | +--------+ + + + + documented as of this encounter Visit Diagnoses Not on filedocumented in this encounter"
--- OUTSIDE RECORDS SUMMARY | ~2020-02-18 | XMS | Encounter Summary ---
Demographics + + + | Address | [address] | | | [place] [address] | + + + | Home Phone [...] Team Providers + +------+ + | Care Laborer Bituminous Paving Name | Role | Phone | + [...] | | | MEDICAL CLINIC [address] | [place] [address] | | | | | [address] [facility], | [phone] | | | | | [place] [address] | | | | | | [phone] | | | +--------+ + + + [...] | 2019 | | | DO [address] [facility] [address] [facility] | | | | | | [place] [address] | | | | | | [phone] | | | | | | | | | | | | Julia Fisher, | | | | | | PT | | +--------+ + + + + | 02/18/ | Appointment | Rehabilitation | Erika Ernst, | | | 2019 | | | DO [address] | | | | | | [place] [address] | | | | | | [phone] | | | | | | | | | | | | Genesis Ayon OT | | +--------+ + + + + | 02/25/ | Office | Primary Care | Erika Ernst, | | | 2019 | Visit | | DO [address] | | | | | | [place] [address] | | | | | | [phone] | | | | | | | [...] | | | | | [place] [address] | | | | | | [phone] | | | | | | | | +--------+ + + + + | 02/27/ | Appointment | Radiology | Dhara, | | | 2019 | | | [address] | | | | | | [address]TH [facility], | | | | | | [place] [address] | | | | | | [phone] | | | | | | | | +--------+ + + + + | 03/04/ | Appointment | Rehabilitation | Genesis Ayon OT | | | 2019 | | | | | +--------+ + + + + | 03/09/ | Office | Orthopedic Surgery | Jeffrey Gandhi, | | | 2019 | Visit | | [address] | | | | | | [place] [address] | | | | | | [phone] | | | | | | | [...] [place] | | | | | | [address] | | | | | | [phone] | | | | | | | [...] | | | | | [place] [address] | | | | | | [phone] | | | | | | | | | | | | Azul Yeboah, | | | | | | MD [address] | | | | | | [place] [place] | | | | | | [place] [address] | | | | | | [phone] | | | | | | | [...] | | | | | | [place] [address] | | | | | | [phone] | | | | | | | | +--------+ + + + + documented as of this encounter Visit Diagnoses Not on filedocumented in this encounter"
--- OUTSIDE RECORDS SUMMARY | ~2020-02-18 | XMS | Encounter Summary ---
Demographics + + + | Address | [address] | | | [place] [address] | + + + | Home Phone [...] Providers + +------+ + | Care Copier Operator Name | Role | Phone | + +------+ + PCP | Unavailable | + +------+ + Encounter Details +--------+ + + + + | Date | Type | Department | Care Team | Description | +--------+ + + + + | 07/16/ | [facility] | Spenser Roberts NP | | | 2012 | Encounter | [facility] | [address], | | | | | MEDICAL [facility] [address] | [place] [address] | | | | | 4TH [facility], | [phone] | | | | | [place] [address] | | | | | | [phone] | | | +--------+ + + + [...] | | | | | [place] [address] | | | | | | [phone] | | | | | | | | | | | | Julia Fisher, | | | | | | PT | | +--------+ + + + + | 02/18/ | Appointment | Rehabilitation | Erika Ernst, | | | 2019 | | | DO [address] | | | | | | [place] [address] | | | | | | [phone] | | | | | | | | | | | | Genesis Ayon OT | | +--------+ + + + + | 02/25/ | Office | Primary Care | Erika Ernst, | | | 2019 | Visit | | DO [address] | | | | | | [place] [address] | | | | | | [phone] | | | | | | | [...] | | | | | [place] [address] | | | | | | [phone] | | | | | | | | +--------+ + + + + | 02/27/ | Appointment | Radiology | Dhara, | | | 2019 | | | [address] | | | | | | 4TH [facility], | | | | | | [place] [address] | | | | | | [phone] | | | | | | | | +--------+ + + + + | 03/04/ | Appointment | Rehabilitation | Genesis Ayon OT | | | 2019 | | | | | +--------+ + + + + | 03/09/ | Office | Orthopedic Surgery | Jeffrey Gandhi, | | 2019 | Visit | | [address] | | | | | | [place] [address] | | | | | | [phone] | | | | | | | [...] [place] | | | | | | [address] | | | | | | [phone] | | | | | | | [...] | | | | | [place] [address] | | | | | | [phone] | | | | | | | | | | | | Azul Yeboah, | | | | | | MD [address] | | | | | | [place] | | | | | | [place] [address] | | | | | | [phone] | | | | | | | [...] | | | | | | [place] [address] | | | | | | [phone] | | | | | | | | +--------+ + + + + documented as of this encounter Visit Diagnoses Not on filedocumented in this encounter"
--- OUTSIDE RECORDS SUMMARY | ~2020-02-18 | XMS | Encounter Summary ---
Demographics + + + | Address | [address] | | | [place] [address] | + + + | Home Phone [...] Team Providers + +------+ + | Care Dehydrator Tender Name | Role | Phone | [...] Medication Question | | 2019 | | [facility] | DO [address] | (Problem w/Asthma) | | | | MEDICAL CLINIC [address] | [place] [address] | | | | | [address] [place], | [phone] | | | | | [place] [address] | | | | | | [phone] | | | +--------+ + + + [...] | | | | | [place] [address] | | | | | | [phone] | | | | | | | | | | | | Julia Fisher, | | | | | | PT | | +--------+ + + + + | 02/18/ | Appointment | Rehabilitation | Erika Ernst, | | | 2019 | | | DO [address] | | | | | | [place] [address] | | | | | | [phone] | | | | | | | | | | | | Genesis Ayon OT | | +--------+ + + + + | 02/25/ | Office | Primary Care | Erika Ernst, | | | 2019 | Visit | | DO [address] | | | | | | [place] [address] | | | | | | [phone] | | | | | | | [...] | | | | | [place] [address] | | | | | | [phone] | | | | | | | | +--------+ + + + + | 02/27/ | Appointment | Radiology | Dhara, | | | 2019 | | | [address] | | | | | | [address]TH [place], | | | | | | [place] [address] | | | | | | [phone] | | | | | | | [...] [place] | | | | | | [place] [address] | | | | | | [phone] | | | | | | | [...] [place] | | | | | | [address] | | | | | | [phone] | | | | | | | [...] | | | | | [place] [address] | | | | | | [phone] | | | | | | | | | | | | Azul Yeboah, | | | | | | MD [address] | | | | | | [place] | | | | | | [place] [address] | | | | | | [phone] | | | | | | | [...] | | | | | | [place] [address] | | | | | | [phone] | | | | | | | | +--------+ + + + + documented as of this encounter Visit Diagnoses Not on filedocumented in this encounter"
--- OUTSIDE RECORDS SUMMARY | ~2020-02-18 | XMS | Encounter Summary ---
Demographics + + + | Address | [address] | | | [place] [address] | + + + | Home Phone [...] Team Providers + +------+ + | Care Hay Buckler Name | Role | Phone | + [...] [address] | [place] [address] | | | | | [place], [place] | [phone] | | | | | [address] | | | | | | [phone] | | | +--------+ + + + [...] | | | | | [place] [address] | | | | | | [phone] | | | | | | | | | | | | Julia Fisher, | | | | | | PT | | +--------+ + + + + | 02/18/ | Appointment | Rehabilitation | Erika Ernst, | | | 2019 | | | DO [address] | | | | | | [place] [address] | | | | | | [phone] | | | | | | | | | | | | Genesis Ayon OT | | +--------+ + + + + | 02/25/ | Office | Primary Care | Erika Ernst, | | | 2019 | Visit | | DO [address] | | | | | | [place] [address] | | | | | | [phone] | | | | | | | [...] | | | | | [place] [address] | | | | | | [phone] | | | | | | | | +--------+ + + + + | 02/27/ | Appointment | Radiology | Dhara, | | | 2019 | | | [address] | | | | | | 4TH [facility], | | | | | | [place] [address] | | | | | | [phone] | | | | | | | | +--------+ + + + + | 03/04/ | Appointment | Rehabilitation | Genesis Ayon OT | | | 2019 | | | | | +--------+ + + + + | 03/09/ | Office | Orthopedic Surgery | Jeffrey Gandhi, | | | 2019 | Visit | | [address] | | | | | | [place] [address] | | | | | | [phone] | | | | | | | [...] [place] | | | | | | [address] | | | | | | [phone] | | | | | | | [...] | | | | | [place] [address] | | | | | | [phone] | | | | | | | | | | | | Azul Yeboah, | | | | | | MD [address] | | | | | | [place] | | | | | | [place] [address] | | | | | | [phone] | | | | | | | [...] | | | | | | [place] [address] | | | | | | [phone] | | | | | | | [...]
--- OUTSIDE RECORDS SUMMARY | ~2020-02-18 | XMS | Encounter Summary ---
Demographics + + + | Address | [address] | | | [place] [address] | + + + | Home Phone [...] Providers + +------+ + | Care Clinical Nurse Reviewer Name | Role | Phone | + +------+ + PCP | Unavailable | + +------+ + Encounter Details +--------+ + + + + | Date | Type | Department | Care Team | Description | +--------+ + + + + | 02/23/ | [facility] | [facility] | Erika Ernst, | | | 2016 | Encounter | [facility] | DO [address] | | | | | MEDICAL CLINIC [address] | [facility] [place] [address] | | | | | [address] [place], | [phone] | | | | | [place] [address] | | | | | | [phone] | | | +--------+ + + + [...] | | | | | [place] [address] | | | | | | [phone] | | | | | | | | | | | | Julia Fisher, | | | | | | PT | | +--------+ + + + + | 02/18/ | Appointment | Rehabilitation | Erika Ernst, | | | 2019 | | | DO [address] | | | | | | [place] [address] | | | | | | [phone] | | | | | | | | | | | | Genesis Ayon OT | | +--------+ + + + + | 02/25/ | Office | Primary Care | Erika Ernst, | | | 2019 | Visit | | DO [address] | | | | | | [place] [address] | | | | | | [phone] | | | | | | | [...] | | | | | [place] [address] | | | | | | [phone] | | | | | | | | +--------+ + + + + | 02/27/ | Appointment | Radiology | Dhara, | | | 2019 | | | [address] | | | | | | [facility]TH [facility] | | | | | | [place] [address] | | | | | | [phone] | | | | | | | [...] [place] | | | | | | [place] [address] | | | | | | [phone] | | | | | | | [...] [place] | | | | | | [address] | | | | | | [phone] | | | | | | | [...] | | | | | [place] [address] | | | | | | [phone] | | | | | | | | | | | | Azul Yeboah, | | | | | | MD [address] | | | | | | [place] | | | | | | [place] [address] | | | | | | [phone] | | | | | | | [...] | | | | | | [place] [address] | | | | | | [phone] | | | | | | | | +--------+ + + + + documented as of this encounter Visit Diagnoses Not on filedocumented in this encounter"
--- OUTSIDE RECORDS SUMMARY | ~2020-02-18 | XMS | Encounter Summary ---
Demographics + + + | Address | [address] | | | [place] [address] | + + + | Home Phone [...] Providers + +------+ + | Care Building Construction Professor Name | Role | Phone | [...] | [place] | [place] [address] | | | | | [address] | [phone] | | | | | [phone] | | | +--------+ + + + [...] | | | | | [place] [address] | | | | | | [phone] | | | | | | | | | | | | Julia Fisher, | | | | | | PT | | +--------+ + + + + | 02/18/ | Appointment | Rehabilitation | Erika Ernst, | | | 2019 | | | DO [address] | | | | | | [place] [address] | | | | | | [phone] | | | | | | | | | | | | Genesis Ayon OT | | +--------+ + + + + | 02/25/ | Office | Primary Care | Erika Ernst, | | | 2019 | Visit | | DO [address] | | | | | | [place] [address] | | | | | | [phone] | | | | | | | [...] | | | | | [place] [address] | | | | | | [phone] | | | | | | | | +--------+ + + + + | 02/27/ | Appointment | Radiology | Dhara, | | | 2019 | | | [address] | | | | | | 4TH [facility], | | | | | | [place] [address] | | | | | | [phone] | | | | | | | | +--------+ + + + + | 03/04/ | Appointment | Rehabilitation | Genesis Ayon OT | | | 2019 | | | | | +--------+ + + + + | 03/09/ | Office | Orthopedic Surgery | Jeffrey Gandhi, | | | 2019 | Visit | | [address] | | | | | | [place] [address] | | | | | | [phone] | | | | | | | [...] [place] | | | | | | [address] | | | | | | [phone] | | | | | | | [...] | | | | | [place] [address] | | | | | | [phone] | | | | | | | | | | | | Azul Yeboah, | | | | | | MD [address] | | | | | | [place] | | | | | | [place] [address] | | | | | | [phone] | | | | | | | [...] | | | | | | [place] [address] | | | | | | [phone] | | | | | | | | +--------+ + + + + documented as of this encounter Visit Diagnoses Not on filedocumented in this encounter"
--- OUTSIDE RECORDS SUMMARY | ~2020-02-18 | XMS | Encounter Summary ---
Demographics + + + | Address | [address] | | | [place] [address] | + + + | Home Phone [...] Providers + +------+ + | Care Product Assembler Name | Role | Phone | [...] | | | [place] | [address] | | | | | [address] | | | | | | [phone] | | | +--------+ + + + [...] [address] | | | | | | [phone] | | | | | | | | | | | | Julia Fisher, | | | | | | PT | | +--------+ + + + + | 02/18/ | Appointment | Rehabilitation | Erika Ernst, | | | 2019 | | | DO [address] | | | | | | [place] [address] | | | | | | [phone] | | | | | | | | | | | | Genesis Ayon, SUSAN | | +--------+ + + + + | 02/25/ | Office | Primary Care | Erika Ernst, | | | 2019 | Visit | | DO [address] [place] [address] | | | | | | [place] [address] | | | | | | [phone] | | | | | | | [...] | | | | | [place] [address] | | | | | | [phone] | | | | | | | | +--------+ + + + + | 02/27/ | Appointment | Radiology | Dhara, | | | 2019 | | | [address] | | | | | | [address] [place], | | | | | | [place] [address] | | | | | | [phone] | | | | | | | | +--------+ + + + + | 03/04/ | Appointment | Rehabilitation | Genesis Ayon OT | | | 2019 | | | | | +--------+ + + + + | 03/09/ | Office | Orthopedic Surgery | Jeffrey Gandhi, | | | 2019 | Visit | | [address] | | | | | | [place] [address] | | | | | | [phone] | | | | | | | [...] [place] | | | | | | [address] | | | | | | [phone] | | | | | | | [...] | | | | | [place] [address] | | | | | | [phone] | | | | | | | | | | | | Azul Yeboah, | | | | | | MD [address] | | | | | | [place] | | | | | | [place] [address] | | | | | | [phone] | | | | | | | [...] | | | | | | [place] [address] | | | | | | [phone] | | | | | | | | +--------+ + + + + documented as of this encounter Visit Diagnoses Not on filedocumented in this encounter"
--- OUTSIDE RECORDS SUMMARY | ~2020-02-18 | XMS | Encounter Summary ---
Demographics + + + | Address | [address] | | | [place] [address] | + + + | Home Phone [...] Providers + +------+ + | Care Home Based Assistant Name | Role | Phone | [...] Required | | right index | MANAGER UTILIZATION REVIEW-CLEANING SPECIALIST | [address] | | | | | finger, | [address] | [place] | | | | | initial | [address] | [place], [place] | | | | | encounter | [place] | [address] | | | | | Procedures | [address] | Phone: | | | | | [place] | Phone: | [phone] | | | | | | [phone] | Fax: | | | | | | Fax: | [phone] | | | | | | [phone] | | +--------+ + + + + [...] right | | 2019 | Visit | [facility] | MANAGER UTILIZATION REVIEW-CLEANING SPECIALIST [address] | index finger, | | | | [facility] [address] | initial encounter | | | | [address] [place], | [place] [address] | (Primary Dx) | | | | [place] [address] | [phone] | | | | | [phone] | | | +--------+---------+ + + + [...] this encounter Progress Notes YolandaStuAlem L, MANAGER UTILIZATION REVIEW-CLEANING SPECIALIST - 05/06/2019 5:00 PM PDTFormatting of this [...] mouth. Once a week Cholecalciferol (VITAMIN D3) 09960 units TABS Take 1 tablet by mouth [...] the past 24 hour(s)). [facility] ORTHOPEDIC XR FINGER RIGHT 2 + VW Assessment: 1. Injury of right index finger, initial encounter - * [place] [facility] Orthopedic - AMB Referral - XR Finger Right 2 + Vw; Future Plan: Persistent right index finger PIP joint pain post injury two months ago. Will get an xray, place in a finger splint and refer to orthopedics as requested Return for referral to orthopedics. Electronically signed by: CHASE Edward05/06/201918:28 [facility] Note: Part of this report was transcribed using voice recognition software. Every effort wa s made to ensure accuracy. However, inadvertent computerized summer school coordinator errors may be pre sent. documente d [...] | | | | | [place] [address] | | | | | | [phone] | | | | | | | | | | | | Julia Fisher, | | | | | | PT | | +--------+ + + + + | 02/18/ | Appointment | Rehabilitation | Erika Ernst, | | | 2019 | | | DO [address] | | | | | | [place] [address] | | | | | | [phone] | | | | | | | | | | | | Genesis Ayon OT | | +--------+ + + + + | 02/25/ | Office | Primary Care | Erika Ernst, | | | 2019 | Visit | | DO [address] | | | | | | [place] [address] | | | | | | [phone] | | | | | | | [...] | | | | | [place] [address] | | | | | | [phone] | | | | | | | | +--------+ + + + + | 02/27/ | Appointment | Radiology | Dhara, | | | 2019 | | | [address] | | | | | | 4TH [facility] [place], | | | | | | [place] [address] | | | | | | [phone] | | | | | | | | +--------+ + + + + | 03/04/ | Appointment | Rehabilitation | Genesis Ayon OT | | | 2019 | | | | | +--------+ + + + + | 03/09/ | Office | Orthopedic Surgery | Jeffrey Gandhi, | | | 2019 | Visit | | [place] [address] [facility] [facility] | | | | | | [place] [address] | | | | | | [phone] | | | | | | | [...] [place] | | | | | | [address] | | | | | | [phone] | | | | | | | [...] | | | | | [place] [address] | | | | | | [phone] | | | | | | | | | | | | Azul Yeboah, | | | | | | MD [address] | | | | | | [place] | | | | | | [place] [address] | | | | | | [phone] | | | | | | | [...] | | | | | | [place] [address] | | | | | | [phone] | | | | | | | [...]
--- OUTSIDE RECORDS SUMMARY | ~2020-02-18 | XMS | Encounter Summary ---
Demographics + + + | Address | [address] | | | [place] [address] | + + + | Home Phone [...] Providers + +------+ + | Care Top Ironer Name | Role | Phone | + [...] | | | [address] | [facility] [place] | | | | | [place], [place] | [address] | | | | | [address] | [phone] | | | | | [phone] | | | +--------+ + + + [...] | | | | | [place] [address] | | | | | | [phone] | | | | | | | | | | | | Julia Fisher, | | | | | | PT | | +--------+ + + + + | 02/18/ | Appointment | Rehabilitation | rEika Ernst, | | | 2019 | | | DO [address] | | | | | | [place] [address] | | | | | | [phone] | | | | | | | | | | | | Genesis Ayon, OT | | +--------+ + + + + | 02/25/ | Office | Primary Care | Erika Ernst, | | | 2019 | Visit | | DO [address] | | | | | | [place] [address] | | | | | | [phone] | | | | | | | [...] | | | | | [place] [address] | | | | | | [phone] | | | | | | | | +--------+ + + + + | 02/27/ | Appointment | Radiology | Dhara, | | | 2019 | | | [address] | | | | | | 4TH [facility], | | | | | | [place] [address] | | | | | | [phone] | | | | | | | | +--------+ + + + + | 03/04/ | Appointment | Rehabilitation | Genesis Ayon OT | | | 2019 | | | | | +--------+ + + + + | 03/09/ | Office | Orthopedic Surgery | Jeffrey Gandhi, | | 2019 | Visit | | [address] | | | | | | [place] [address] | | | | | | [phone] | | | | | | | [...] [place] | | | | | | [address] | | | | | | [phone] | | | | | | | [...] | | | | | [place] [address] | | | | | | [phone] | | | | | | | | | | | | Azul Yeboah, | | | | | | MD [address] | | | | | | [place] | | | | | | [place] [address] | | | | | | [phone] | | | | | | | [...] | | | | | | [place] [address] | | | | | | [phone] | | | | | | | | +--------+ + + + + documented as of this encounter Visit Diagnoses Not on filedocumented in this encounter"
--- OUTSIDE RECORDS SUMMARY | ~2020-02-18 | XMS | Encounter Summary ---
Demographics + + + | Address | [address] | | | [place] [address] | + + + | Home Phone [...] Providers + +------+ + | Care Registration Clerk Name | Role | Phone | [...] | | | | [address] | [place], [place] | (PTTD) of left lower | | | | [place], [place] | [address] | extremity (Primary | | | | [address] | | Dx); Sprain of | | | | [phone] | | deltoid ligament of | | [...] | : 1990 | Medical Record Number:[id number] | Author: Emily Mittal DPM | Date [...] is scheduled to see a [facility] physician in [place] for her wrist and ankle. Allergies Latex; [...] and their vital signs recorded by my trust administrative assistant today, a s found in this chart note. Electronically signed by: Emily Mittal DPM 12/06/2018 at 9:10 Note: Part of this report was transcribed using voice recognition software. Every effort wa s made to ensure accuracy. However, inadvertent computerized singer songwriter errors may be pre sent. CC: Erika [...] | | | | | [place] [address] | | | | | | [phone] | | | | | | | | | | | | Julia Fisher, | | | | | | PT | | +--------+ + + + + | 02/18/ | Appointment | Rehabilitation | Erika Ernst, | | | 2019 | | | DO [address] [place] | | | | | | [place] [address] | | | | | | [phone] | | | | | | | | | | | | Genesis Ayon OT | | +--------+ + + + + | 02/25/ | Office | Primary Care | Erika Ernst, | | | 2019 | Visit | | DO [address] [place] | | | | | | [place] [address] | | | | | | [phone] | | | | | | | [...] | | | | | [place] [address] | | | | | | [phone] | | | | | | | | +--------+ + + + + | 02/27/ | Appointment | Radiology | Dhara | | | 2019 | | | [address] | | | | | | [address] [place], | | | | | | [place] [address] | | | | | | [phone] | | | | | | | | +--------+ + + + + | 03/04/ | Appointment | Rehabilitation | Genesis Ayon OT | | | 2019 | | | | | +--------+ + + + + | 03/09/ | Office | Orthopedic Surgery | Jeffrey Gandhi, | | | 2019 | Visit | | [place] [address] [facility] | | | | | | [place] [address] | | | | | | [phone] | | | | | | | [...] [place] | | | | | | [address] | | | | | | [phone] | | | | | | | [...] | | | | | [place] [address] | | | | | | [phone] | | | | | | | | | | | | Azul Yeboah, | | | | | | MD [address] | | | | | | [place] | | | | | | [place] [address] | | | | | | [phone] | | | | | | | [...] | | | | | | [place] [address] | | | | | | [phone] | | | | | | | [...]
--- OUTSIDE RECORDS SUMMARY | ~2020-02-18 | XMS | Encounter Summary ---
Demographics + + + | Address | [address] | | | [place] [address] | + + + | Home Phone [...] Providers + +------+ + | Care Clinical Trial Manager Name | Role | Phone | [...] | | | | [place], [place] | [address] | | | | | [address] | [phone] | | | | | [phone] | | | +--------+ + + + [...] | | | | | [place] [address] | | | | | | [phone] | | | | | | | | | | | | Julia Fisher, | | | | | | PT | | +--------+ + + + + | 02/18/ | Appointment | Rehabilitation | Erika Ernst, | | | 2019 | | | DO [address] [place] | | | | | | [place] [address] | | | | | | [phone] | | | | | | | | | | | | Genesis Ayon, OT | | +--------+ + + + + | 02/25/ | Office | Primary Care | Erika Ernst, | | | 2019 | Visit | | DO [address] [place] | | | | | | [place] [address] | | | | | | [phone] | | | | | | | [...] | | | | | [place] [address] | | | | | | [phone] | | | | | | | | +--------+ + + + + | 02/27/ | Appointment | Radiology | Dhara, | | | 2019 | | | [address] | | | | | | 4TH [facility], | | | | | | [place] [address] | | | | | | [phone] | | | | | | | | +--------+ + + + + | 03/04/ | Appointment | Rehabilitation | Genesis Ayon OT | | | 2019 | | | | | +--------+ + + + + | 03/09/ | Office | Orthopedic Surgery | Jeffrey Gandhi, | | 2019 | Visit | | [address] | | | | | | [place] [address] | | | | | | [phone] | | | | | | | [...] [place] | | | | | | [address] | | | | | | [phone] | | | | | | | [...] | | | | | [place] [address] | | | | | | [phone] | | | | | | | | | | | | Azul Yeboah, | | | | | | MD [address] | | | | | | [place] | | | | | | [place] [address] | | | | | | [phone] | | | | | | | [...] | | | | | | [place] [address] | | | | | | [phone] | | | | | | | [...] with pain. JOB #: | | | [id number] Read By: ANJELICA CHAMBERS MD Released By: [...] can be associated with pain. JOB #: [id number] Read By: ANJELICA CHAMBERS, | | Released [...] | | | | | |JOB #: [id number] | | | |Read By: ANJELICA CHAMBERS MD | | | |Released By: ANJELICA CHAMBERS MD | |Date: 12/26/2014 07:53 | | | | | + + documented in this encounter Visit Diagnoses Not on filedocumented in this encounter"
--- OUTSIDE RECORDS SUMMARY | ~2020-02-18 | XMS | Encounter Summary ---
Demographics + + + | Address | [address] | | | [place] [address] | + + + | Home Phone [...] Providers + +------+ + | Care Corporate Communications Intern Name | Role | Phone | + +------+ + PCP | Unavailable | + +------+ + Encounter Details +--------+ + + + + | Date | Type | Department | Care Team | Description | +--------+ + + + + | 06/22/ | [facility] | [facility] | Amaya Varner NP | | | 2016 | Encounter | [facility] | [address] | | | | | MEDICAL [facility] [address] | [place], [place] | | | | | [address] [place], | [address] | | | | | [place] [address] | [phone] | | | | | [phone] | | | +--------+ + + + [...] | | 2020 | | | DO [facility] | | | | | | [place], [place] [address] | | | | | | [phone] | | | | | | | | | | | | Julia Fisher, | | | | | | PT | | +--------+ + + + + | 02/18/ | Appointment | Rehabilitation | Erika Ernst, | | | 2019 | | | DO [address] | | | | | | [place] [address] | | | | | | [phone] | | | | | | | | | | | | Genesis Ayon, SUSAN | | +--------+ + + + + | 02/25/ | Office | Primary Care | Erika Ernst, | | | 2019 | Visit | | DO [address] | | | | | | [place] [address] | | | | | | [phone] | | | | | | | [...] | | | | | [place] [address] | | | | | | [phone] | | | | | | | | +--------+ + + + + | 02/27/ | Appointment | Radiology | Dhara, | | | 2019 | | | DWAINE Ross [address] | | | | | | [address] [facility] [place], | | | | | | [place] [address] | | | | | | [phone] | | | | | | | [...] | | | | | [place] [address] | | | | | | [phone] | | | | | | | [...] [place] | | | | | | [address] | | | | | | [phone] | | | | | | | [...] | | | | | [place] [address] | | | | | | [phone] | | | | | | | | | | | | Azul Yeboah, | | | | | | MD [address] | | | | | | [place] | | | | | | [place] [address] | | | | | | [phone] | | | | | | | [...] | | | | | | [place] [address] | | | | | | [phone] | | | | | | | | +--------+ + + + + documented as of this encounter Visit Diagnoses Not on filedocumented in this encounter"
--- OUTSIDE RECORDS SUMMARY | ~2020-02-18 | XMS | Encounter Summary ---
Demographics + + + | Address | [address] | | | [place] [address] | + + + | Home Phone [...] Team Providers + +------+ + | Care Sports Official Name | Role | Phone | + [...] [address] | [facility] [place] [address] | | | | | [address] [facility], | [phone] | | | | | [place] [address] | | | | | | [phone] | | | +--------+ + + + [...] | | | | | [place] [address] | | | | | | [phone] | | | | | | | | | | | | Julia Fisher, | | | | | | PT | | +--------+ + + + + | 02/18/ | Appointment | Rehabilitation | Erika Ernst, | | | 2019 | | | DO [address] | | | | | | [place] [address] | | | | | | [phone] | | | | | | | | | | | | Genesis Ayon OT | | +--------+ + + + + | 02/25/ | Office | Primary Care | Erika Ernst, | | | 2019 | Visit | | DO [address] | | | | | | [place] [address] | | | | | | [phone] | | | | | | | [...] | | | | | [place] [address] | | | | | | [phone] | | | | | | | | +--------+ + + + + | 02/27/ | Appointment | Radiology | Dhara, | | | 2019 | | | DWAINE Ross [address] | | | | | | [facility] [facility] | | | | | | [place] [address] | | | | | | [phone] | | | | | | | [...] [place] | | | | | | [place] [address] | | | | | | [phone] | | | | | | | [...] [place] | | | | | | [address] | | | | | | [phone] | | | | | | | [...] | | | | | [place] [address] | | | | | | [phone] | | | | | | | | | | | | Azul Yeboah, | | | | | | MD [address] | | | | | | [place] | | | | | | [place] [address] | | | | | | [phone] | | | | | | | [...] | | | | | | [place] [address] | | | | | | [phone] | | | | | | | | +--------+ + + + + documented as of this encounter Visit Diagnoses Not on filedocumented in this encounter"
--- OUTSIDE RECORDS SUMMARY | ~2020-02-18 | XMS | Encounter Summary ---
Demographics + + + | Address | [address] | | | [place] [address] | + + + | Home Phone [...] Team Providers + +------+ + | Care Shroud Line Tier Name | Role | Phone | [...] deficiency | | 2018 | | [facility] | DO [address] | | | | | MEDICAL CLINIC [address] | [facility] [place] [address] | | | | | [address] [place], | [phone] | | | | | [place] [address] | | | | | | [phone] | | | +--------+ + + + [...] [place] | | | | | | [place] [address] | | | | | | [phone] | | | | | | | | | | | | Julia Fisher, | | | | | | PT | | +--------+ + + + + | 02/18/ | Appointment | Rehabilitation | Erika Ernst, | | | 2019 | | | DO [address] | | | | | | [place] [address] | | | | | | [phone] | | | | | | | | | | | | Genesis Ayon, OT | | +--------+ + + + + | 02/25/ | Office | Primary Care | Erika Ernst, | | | 2019 | Visit | | DO [address] | | | | | | [place] [address] | | | | | | [phone] | | | | | | | [...] | | | | | [place] [address] | | | | | | [phone] | | | | | | | | +--------+ + + + + | 02/27/ | Appointment | Radiology | Dhara, | | | 2019 | | | DWAINE Ross [address] | | | | | | [address] [place], | | | | | | [place] [address] | | | | | | [phone] | | | | | | | [...] [place] | | | | | | [place] [address] | | | | | | [phone] | | | | | | | [...] [place] | | | | | | [address] | | | | | | [phone] | | | | | | | [...] | | | | | [place] [address] | | | | | | [phone] | | | | | | | | | | | | Azul Yeboah, | | | | | | [address] | | | | | | [place] | | | | | | [place] [address] | | | | | | [phone] | | | | | | | [...] | | | | | | [place] [address] | | | | | | [phone] | | | | | | | | +--------+ + + + + documented as of this encounter Visit Diagnoses + + | Diagnosis | + + | Vitamin D deficiency Unspecified vitamin D deficiency | + + documented in this encounter"
--- OUTSIDE RECORDS SUMMARY | ~2020-02-18 | XMS | Encounter Summary ---
Demographics + + + | Address | [address] | | | [place] [address] | + + + | Home Phone [...] Team Providers + +------+ + | Care Paragliding Instructor Name | Role | Phone | [...] [place] | | | | | [place] [address] | [address] | | | | | [phone] | [phone] | | | | | | | [...] | | 2019 | | | DO [facility] | | | | | | [place] [address] | | | | | | [phone] | | | | | | | | | | | | Julia Fisher, | | | | | | PT | | +--------+ + + + + | 02/18/ | Appointment | Rehabilitation | Erika Ernst, | | | 2019 | | | DO [address] | | | | | | [place] [address] | | | | | | [phone] | | | | | | | | | | | | Genesis Ayon OT | | +--------+ + + + + | 02/25/ | Office | Primary Care | Erika Ernst, | | | 2019 | Visit | | DO [address] | | | | | | [place] [address] | | | | | | [phone] | | | | | | | [...] | | | | | [place] [address] | | | | | | [phone] | | | | | | | | +--------+ + + + + | 02/27/ | Appointment | Radiology | Dhara, | | | 2019 | | | DWAINE Ross [address] | | | | | | 4TH [facility], | | | | | | [place] [address] | | | | | | [phone] | | | | | | | | +--------+ + + + + | 03/04/ | Appointment | Rehabilitation | Genesis Ayon OT | | | 2019 | | | | | +--------+ + + + + | 03/09/ | Office | Orthopedic Surgery | Jeffrey Gandhi, | | | 2019 | Visit | | [address] | | | | | | [place] [address] | | | | | | [phone] | | | | | | | [...] [place] | | | | | | [address] | | | | | | [phone] | | | | | | | [...] | | | | | [place] [address] | | | | | | [phone] | | | | | | | | | | | | Azul Yeboah, | | | | | | MD [address] | | | | | | [place] | | | | | | [place] [address] | | | | | | [phone] | | | | | | | [...] | | | | | | [place] [address] | | | | | | [phone] | | | | | | | | +--------+ + + + + documented as of this encounter Visit Diagnoses Not on filedocumented in this encounter"
--- OUTSIDE RECORDS SUMMARY | ~2020-02-18 | XMS | Encounter Summary ---
Demographics + + + | Address | [address] | | | [place] [address] | + + + | Home Phone [...] Team Providers + +------+ + | Care Room Worker Name | Role | Phone | + +------+ + | Erika Ernst DO | PCP | | + +------+ + Reason for Visit + + + | Reason | Comments | + + + | Migraine | dizziness, nausea since last night | + + + Encounter Details +--------+---------+ + + + | Date | Type | Department | Care Team | Description | +--------+---------+ + + + | 11/12/ | Office | [place] [facility] | PittsBrandi | Migraine without | | 2020 | Visit | [facility] | DO [address] | aura and without | | | | [facility] [address] | [address] [place] | status migrainosus, | | | | [address] [place], | [place] [address] | not intractable | | | | [place] [address] | [phone] | (Primary Dx) | | | | [phone] | | | +--------+---------+ + + + [...] + + + | Blood Pressure | 142/97 | 11/12/2019 3:27 PM | | | | | PST | | + + + + + | Pulse | 67 | 11/12/2019 3:27 PM | | | | | PST | | + + + + + | Temperature | 36.6 C (97.8 F) | 11/12/2019 3:27 PM | | | | | PST | | + + + + + | Respiratory Rate | 18 | 11/12/2019 3:27 PM | | | | | PST | | + + + + + | Oxygen Saturation | 100% | 11/12/2019 3:27 PM | | | | | PST [...] + documented in this encounter Progress Notes Leslie Conley CC CMA - 11/12/2019 3:05 PM PSTAfter obtaining consent, and per order s of Dr. Pitts, injection of Ketorolac 30 mg/mL given by BRISA Cheng CMA. Carolina nt instructed to remain in clinic for 15 minutes afterwards, and to report any adverse react ion to me immediately. 5:0 0 PM PSTPorter, Brandi Salamanca, DO - 11/12/2019 3:05 PM PSTFormatting of this note might be dif ferent from the original. Patient ID: Andrea Suh is a 29 y.o. year old female Chief Complaint: Chief Complaint Patient presents with Migraine dizziness, nausea since last night Assessment and Plan: 1. Migraine without aura and without status migrainosus, not intractable ondansetron (ZOFR AN ODT) disintegrating tablet 8 mg ketorolac (TORADOL) injection 30 mg ondansetron (ZOFRAN ODT) 8 mg disintegrating tablet Patient verbalized some relief from the pain associated with her migraine from the toradol. She is still nauseated. Will send some Zofran ODT to the pharmacy. Advised her to follow up with Dr. Wheeler and Dr. Ernst. Patient verbalizes understanding of and agreement with pl an of care. I personally interviewed and examined the patient with the student and either performed or directly observed all documented elements of history and physical exam. This note was edited for content and reflects my physical exam and plan of care. Subjective: HPI: Patient presents to the [facility] for migraine. Last night the room was spinning for about 8 hours straight. She took Meclizine but did not notice an improvement. When she woke up she had a migraine behind her eyes. She has taken E xcedrin Migraine and Tramadol without relief of her headache. Her pain is 6/10 and primarily behind her eyes. If she stands up then she becomes dizzy. She has a history of Meniere Dise ase and has a follow up scheduled with Dr. Wheeler in December. She reports that her hearing a s been worsening and she is worried about permanent hearing loss. She does not use tobacco products. Patient's medications, allergies, past medical, surgical, social and family histories were obtained and reviewed as appropriate. Review of Systems Constitutional: Negative for fatigue and fever. Skin: Negative. Neurological: Negative for facial asymmetry and speech difficulty. All other systems reviewed and are negative. Objective: Vitals: BP (!) 142/97 | Pulse 67 | Temp 36.6 C (97.8 F) (Temporal) | Resp 18 | SpO2 100% Physical Exam Constitutional: Appearance: Normal appearance. HENT: Head: Normocephalic and atraumatic. Eyes: General: No visual field deficit. Pupils: Pupils are equal, round, and reactive to light. Skin: General: Skin is warm and dry. Neurological: Mental Status: She is alert and oriented to person, place, and time. Cranial Nerves: No facial asymmetry. Psychiatric: Speech: Speech normal. Assessment, plan, and exam completed byDWAINE Little student Entered by Marissa Bautista CNA 2, [facility], acting as scribe for Brandi Pitts DO. The documentation recorded by the scribe accurately reflects the service I personally perfo rmed and the decisions made by me. Electronically signed by: Brandi Pitts DO 11/12/2019 4:59 PM Note: Part of this report was transcribed using voice recognition software. Every effort wa s made to ensure accuracy. However, inadvertent computerized pad assembler errors may be pre sent. documented in this encounter Plan of Treatment +--------+ + + + + | Date | Type | Specialty | Care Team | Description | +--------+ + + + + | 02/18/ | Appointment | Rehabilitation | Erika Ernst, | | | 2019 | | | DO [address] | | | | | | [place] [address] | | | | | | [phone] | | | | | | | | | | | | Julia Fisher, | | | | | | PT | | +--------+ + + + + | 02/18/ | Appointment | Rehabilitation | Erika Ernst, | | | 2019 | | | DO [address] | | | | | | [place] [address] | | | | | | [phone] | | | | | | | | | | | | Genesis Ayon, OT | | +--------+ + + + + | 02/25/ | Office | Primary Care | Erika Ernst, | | | 2019 | Visit | | DO [address] | | | | | | [place] [address] | | | | | | [phone] | | | | | | | [...] | | | | | [place] [address] | | | | | | [phone] | | | | | | | | +--------+ + + + + | 02/27/ | Appointment | Radiology | Dhara, | | | 2019 | | | DWAINE Ross [address] | | | | | | 4TH [facility], | | | | | | [place] [address] | | | | | | [phone] | | | | | | | | +--------+ + + + + | 03/04/ | Appointment | Rehabilitation | Genesis Ayon OT | | | 2019 | | | | | +--------+ + + + + | 03/09/ | Office | Orthopedic Surgery | Jeffrey Gandhi, | | | 2019 | Visit | | [address] [facility] | | | | | | [place] [address] | | | | | | [phone] | | | | | | | [...] [place] | | | | | | [address] | | | | | | [phone] | | | | | | | [...] | | | | | [place] [address] | | | | | | [phone] | | | | | | | | | | | | Azul Yeboah, | | | | | | MD [address] | | | | | | [place] | | | | | | [place] [address] | | | | | | [phone] | | | | | | | | +--------+ + + + + | 04/08/ | Appointment | Nutrition | Janel Webster | | | 2019 | | | [place], [place] | | +--------+ + + + + | 05/21/ | Office | Neurology | Dhara, | | | 2019 | Visit | | Cody, ROUNDHOUSE SUPERVISOR [address] | | | | | | [address]TH [facility], | | | | | | [place] [address] | | | | | | [phone] | | | | | | | | +--------+ + + + + documented as of this encounter Visit Diagnoses + + | Diagnosis | + + | Migraine without aura and without status migrainosus, not intractable - Primary | | Migraine without aura, without mention of intractable migraine without mention of status | | migrainosus | + + documented in this encounter Administered Medications + +--------+ +-------+------+ + | Medication Order | MAR | Action | Dose | Rate | Site | | | Action | Date | | | | + +--------+ +-------+------+ + | ketorolac (TORADOL) injection | Given | 11/12/19 | 30 mg | | Deltoid- | | 30 mg 30 mg, Intramuscular, | | 20 4:02 | | | Right | | ONCE, Blanche 11/12/19 at 1615, For 1 | | PM PST | | | | | dose | | | | | | + +--------+ +-------+------+ + +---+---+ | | | +---+---+ + +-------+ +------+---+---+ | ondansetron (ZOFRAN ODT) | Given | 11/12/19 | 8 mg | | | | disintegrating tablet 8 mg 8 mg, | | 20 3:55 | | | | | Oral, ONCE, 11/12/19 at 1615, | | PM PST | | | | | For 1 dose | | | | | | + +-------+ +------+---+---+ +---+---+ | | | +---+---+ documented in this encounter"
--- OUTSIDE RECORDS SUMMARY | ~2020-02-18 | XMS | Encounter Summary ---
Demographics + + + | Address | [address] | | | [place] [address] | + + + | Home Phone [...] Team Providers + +------+ + | Care Women Specialist Name | Role | Phone | [...] | | | MEDICAL [facility] [address] | Heel Sewer-Clinical | | | | | [address] [facility] [place], | | | | | | [place] [address] | | | | | | [phone] | | | +--------+ + + + [...] | | | | | [place] [address] | | | | | | [phone] | | | | | | | [...] [address] | | | | | | [phone] | | | | | | | | | | | | Genesis Ayon OT | | +--------+ + + + + | 02/25/ | Office | Primary Care | Erika Ernst, | | | 2019 | Visit | | DO [address] | | | | | | [place] [address] | | | | | | [phone] | | | | | | | [...] | | | | | [place] [address] | | | | | | [phone] | | | | | | | | +--------+ + + + + | 02/27/ | Appointment | Radiology | Dhara, | | | 2019 | | | DWAINE Ross [address] | | | | | | 4TH [facility], | | | | | | [place] [address] | | | | | | [phone] | | | | | | | | +--------+ + + + + | 03/04/ | Appointment | Rehabilitation | Genesis Ayon OT | | | 2019 | | | | | +--------+ + + + + | 03/09/ | Office | Orthopedic Surgery | Jeffrey Gandhi, | | | 2019 | Visit | | [address] | | | | | | [place] [address] | | | | | | [phone] | | | | | | | [...] [place] | | | | | | [address] | | | | | | [phone] | | | | | | | [...] | | | | | [place] [address] | | | | | | [phone] | | | | | | | | | | | | Azul Yeboah, | | | | | | MD [address] | | | | | | [place] | | | | | | [place] [address] | | | | | | [phone] | | | | | | | [...] | | | | | | [place] [address] | | | | | | [phone] | | | | | | | | +--------+ + + + + documented as of this encounter Visit Diagnoses Not on filedocumented in this encounter"
--- OUTSIDE RECORDS SUMMARY | ~2020-02-18 | XMS | Encounter Summary ---
Demographics + + + | Address | [address] | | | [place] [address] | + + + | Home Phone [...] Team Providers + +------+ + | Care Bicycle Courier Name | Role | Phone | + [...] | MEDICAL CLINIC [address] | [place] [address] | (Primary Dx); | | | | [address] [place], | [phone] | Dysuria; Vitamin D | | | | [place] [address] | | deficiency; Acute | | | | [phone] | | pain of right knee; | [...] 29 y.o. female. Here to FU from [facility] visit on the for right knee pain. [...] | | | | | [place] [address] | | | | | | [phone] | | | | | | | | | | | | Julia Fisher, | | | | | | PT | | +--------+ + + + + | 02/18/ | Appointment | Rehabilitation | Erika Ernst, | | | 2019 | | | DO [address] | | | | | | [place] [address] | | | | | | [phone] | | | | | | | | | | | | Genesis Ayon OT | | +--------+ + + + + | 02/25/ | Office | Primary Care | Erika Ernst, | | | 2019 | Visit | | DO [address] | | | | | | [place] [address] | | | | | | [phone] | | | | | | | [...] | | | | | [place] [address] | | | | | | [phone] | | | | | | | | +--------+ + + + + | 02/27/ | Appointment | Radiology | Dhara, | | | 2019 | | | DWAINE Ross [address] | | | | | | [address] [place], | | | | | | [place] [address] | | | | | | [phone] | | | | | | | | +--------+ + + + + | 03/04/ | Appointment | Rehabilitation | Genesis Ayon OT | | | 2019 | | | | | +--------+ + + + + | 03/09/ | Office | Orthopedic Surgery | Jeffrey Gandhi, | | | 2019 | Visit | | [address] [facility] | | | | | | [place] [address] | | | | | | [phone] | | | | | | | [...] [place] | | | | | | [address] | | | | | | [phone] | | | | | | | [...] | | | | | [place] [address] | | | | | | [phone] | | | | | | | | | | | | Azul Yeboah, | | | | | | MD [address] | | | | | | [place] | | | | | | [place] [address] | | | | | | [phone] | | | | | | | [...] | | | | | | [place] [address] | | | | | | [phone] | | | | | | | [...] - 1.030 | [place] | | | [place], | | | [place] | | | [...] [address] | [place] | [phone] | | [facility] | | [address] | | | MEDICAL CENTER LAB | [...]
--- OUTSIDE RECORDS SUMMARY | ~2020-02-18 | XMS | Encounter Summary ---
Demographics + + + | Address | [address] | | | [place] [address] | + + + | Home Phone [...] Providers + +------+ + | Care Paint Roller Cover Machine Setter Name | Role | Phone [...] Medication Refill | | 2019 | | [facility] | INSULATOR TECHNICIAN [address] | | | | | [facility] [address] | [place] [address] | | | | | [address] [place], | [phone] | | | | | [place] [address] | | | | | | [phone] | | | +--------+--------+ + + + [...] | | | | | [place] [address] | | | | | | [phone] | | | | | | | | | | | | Julia Fisher, | | | | | | PT | | +--------+ + + + + | 02/18/ | Appointment | Rehabilitation | Erika Ernts, | | | 2019 | | | DO [address] | | | | | | [place] [address] | | | | | | [phone] | | | | | | | | | | | | Genesis Ayon OT | | +--------+ + + + + | 02/25/ | Office | Primary Care | Erika Ernst, | | | 2019 | Visit | | DO [address] | | | | | | [place] [address] | | | | | | [phone] | | | | | | | [...] | | | | | | [place] [address] | | | | | | [phone] | | | | | | | | +--------+ + + + + | 02/27/ | Appointment | Radiology | Dhara, | | | 2019 | | | DWAINE Ross [address] | | | | | | [address] [place], | | | | | | [place] [address] | | | | | | [phone] | | | | | | | [...] [place] | | | | | | [place] [address] | | | | | | [phone] | | | | | | | [...] [place] | | | | | | [address] | | | | | | [phone] | | | | | | | [...] | | | | | [place] [address] | | | | | | [phone] | | | | | | | | | | | | Azul Yeboah, | | | | | | MD [address] | | | | | | [place] | | | | | | [place] [address] | | | | | | [phone] | | | | | | | [...] | | | | | | [place] [address] | | | | | | [phone] | | | | | | | | +--------+ + + + + documented as of this encounter Visit Diagnoses Not on filedocumented in this encounter"
--- OUTSIDE RECORDS SUMMARY | ~2020-02-18 | XMS | Encounter Summary ---
Demographics + + + | Address | [address] | | | [place] [address] | + + + | Home Phone [...] Team Providers + +------+ + | Care Flatwork Supervisor Name | Role | Phone | [...] | | | to excess | [place] [address] | | | | | | calories | Phone: | | | | | | without | [phone] | | | | | | serious | Fax: | | | | | | comorbidity | [phone] | | | | | | with [...] | | | | | | | [facility] | | | | | | [...] | SERVICES [address] | [place] [address] | malignant; Simple | | | | DR [place], [place] | [phone] | obesity; Body mass | | | | [address] | | index 50.0-59.9, | | | | [phone] | Janel Webster, | adult (HCC); Dietary [...] | 04/12/20 | | | (VITAMIN D3) 46004 | mouth Once a week | tablet [...] | | | | | [place] [address] | | | | | | [phone] | | | | | | | | | | | | Julia Fisher, | | | | | | PT | | +--------+ + + + + | 02/18/ | Appointment | Rehabilitation | Erika Ernst, | | | 2019 | | | DO [address] | | | | | | [place] [address] | | | | | | [phone] | | | | | | | | | | | | [facility] | | +--------+ + + + + | 02/25/ | Office | Primary Care | Erika Ernst, | | | 2019 | Visit | | DO [address] | | | | | | [place] [address] | | | | | | [phone] | | | | | | | [...] | | | | | [place] [address] | | | | | | [phone] | | | | | | | | +--------+ + + + + | 02/27/ | Appointment | Radiology | Dhara, | | | 2019 | | | [address]WA[address] | | | | | | [address] [facility], | | | | | | [place] [address] | | | | | | [phone] | | | | | | | | +--------+ + + + + | 03/04/ | Appointment | Rehabilitation | [facility] | | | 2019 | | | | | +--------+ + + + + | 03/09/ | Office | Orthopedic Surgery | Jeffrey Gandhi, | | | 2019 | Visit | | [address] | | | | | | [place] [address] | | | | | | [phone] | | | | | | | [...] [place] | | | | | | [address] | | | | | | [phone] | | | | | | | [...] | | | | | [place] [address] | | | | | | [phone] | | | | | | | | | | | | Azul Yeboah, | | | | | | MD [address] | | | | | | [address] [place] | | | | | | [place] [address] | | | | | | [phone] | | | | | | | | +--------+ + + + + | 04/08/ | Appointment | Nutrition | Janel Webster | | | 2019 | | | [place], [place] | | +--------+ + + + + | 05/21/ | Office | Neurology | Dhara, | | | 2020 | Visit | | Cody, [employer] [address] [facility] [place], | | | | | | [place] [address] | | | | | | [phone] | | | | | | | [...]
--- OUTSIDE RECORDS SUMMARY | ~2020-02-18 | XMS | Encounter Summary ---
Demographics + + + | Address | [address] | | | [place] [address] | + + + | Home Phone [...] Team Providers + +------+ + | Care Talent Management Manager Name | Role | Phone | [...] Description | +--------+--------+ + + + | 11/13/ | Refill | [place] [facility] | Brandi Pitts | Medication Refill | | 2020 | | [facility] | Jadyn, DO [address] | | | | | [facility] [address] | [address] [place] | | | | | [address] [place], | [place] [address] | | | | | [place] [address] | [phone] | | | | | [phone] | | | +--------+--------+ + + + [...] | | | | | [place] [address] | | | | | | [phone] | | | | | | | | | | | | Julia Fisher, | | | | | | PT | | +--------+ + + + + | 02/18/ | Appointment | Rehabilitation | Erika Ernst, | | | 2019 | | | DO [address] | | | | | | [place] [address] | | | | | | [phone] | | | | | | | | | | | | Genesis Ayon OT | | +--------+ + + + + | 02/25/ | Office | Primary Care | Erika Ernst, | | | 2019 | Visit | | DO [address] | | | | | | [place] [address] | | | | | | [phone] | | | | | | | [...] | | | | | [place] [address] | | | | | | [phone] | | | | | | | | +--------+ + + + + | 02/27/ | Appointment | Radiology | Dhara, | | | 2019 | | | [address] | | | | | | 4TH [facility], | | | | | | [place] [address] | | | | | | [phone] | | | | | | | | +--------+ + + + + | 03/04/ | Appointment | Rehabilitation | Genesis Ayon OT | | | 2019 | | | | | +--------+ + + + + | 03/09/ | Office | Orthopedic Surgery | Jeffrey Gandhi, | | | 2019 | Visit | | [address] | | | | | | [place] [address] | | | | | | [phone] | | | | | | | [...] [place] | | | | | | [address] | | | | | | [phone] | | | | | | | [...] | | | | | [place] [address] | | | | | | [phone] | | | | | | | | | | | | Azul Yeboah, | | | | | | MD [address] | | | | | | [place] | | | | | | [place] [address] | | | | | | [phone] | | | | | | | [...] | | | | | | [place] [address] | | | | | | [phone] | | | | | | | | +--------+ + + + + documented as of this encounter Visit Diagnoses Not on filedocumented in this encounter"
--- OUTSIDE RECORDS SUMMARY | ~2020-02-18 | XMS | Encounter Summary ---
Demographics + + + | Address | [address] | | | [place] [address] | + + + | Home Phone [...] Team Providers + +------+ + | Care Retirement Plan Specialist Name | Role | Phone | [...] | | | of left | [place] [address] | [place] [address] | | | | | ankle, | Phone: | Phone: | | | | | initial | [phone] | [phone] | | | | | encounter | Fax: | Fax: | | | | | Procedures | [phone] | [phone] | | | | | PT EVAL [...] [address] | [place] [address] | encounter (Primary | | | | [place], [place] | [phone] | Dx) | | | | [address] | | | | | | [phone] | Nick Barrios I, PT | | [...] original. [facility] PT [address] [place] [address] Physical Therapy Daily Treatment Note Date: 08/28/2018 [...] favor of SL heel raise with MANAGER PURCHASING. ONGOING: SLS on even surface 3x30 seconds [...] minutes) Rhomberg stance on bosu eyes open MANAGER PURCHASING as needed 1 minute // SLS on bosu MANAGER PURCHASING grab bar as needed 1x1 minute 2x30 [...] | | | | | [place] [address] | | | | | | [phone] | | | | | | | | | | | | Julia Fisher, | | | | | | PT | | +--------+ + + + + | 02/18/ | Appointment | Rehabilitation | Erika Ernst, | | | 2019 | | | DO [address] | | | | | | [place] [address] | | | | | | [phone] | | | | | | | | | | | | Genesis Ayon OT | | +--------+ + + + + | 02/25/ | Office | Primary Care | Erika Ernst, | | | 2019 | Visit | | DO [address] | | | | | | [place] [address] | | | | | | [phone] | | | | | | | [...] | | | | | [place] [address] | | | | | | [phone] | | | | | | | | +--------+ + + + + | 02/27/ | Appointment | Radiology | Dhara, | | | 2019 | | | [address] | | | | | | 4TH [facility] [place], | | | | | | [place] [address] | | | | | | [phone] | | | | | | | [...] [place] | | | | | | [place] [address] | | | | | | [phone] | | | | | | | [...] [place] | | | | | | [address] | | | | | | [phone] | | | | | | | [...] | | | | | [place] [address] | | | | | | [phone] | | | | | | | | | | | | Azul Yeboah, | | | | | | MD [address] | | | | | | [place] | | | | | | [place] [address] | | | | | | [phone] | | | | | | | [...] | | | | | | [place] [address] | | | | | | [phone] | | | | | | | | +--------+ + + + + documented as of this encounter Visit Diagnoses + + | Diagnosis | + + | Sprain of left ankle, subsequent encounter - Primary | + + documented in this encounter
--- OUTSIDE RECORDS SUMMARY | ~2020-02-18 | XMS | Encounter Summary ---
Demographics + + + | Address | [address] | | | [place] [address] | + + + | Home Phone [...] Providers + +------+ + | Care Head Of Loss Prevention Name | Role | Phone | + [...] Refill | | 2019 | | [facility] | [address] | | | | | [facility] [address] | [facility] [place] [address] | | | | | [address] [place], | [phone] | | | | | [place] [address] | | | | | | [phone] | | | +--------+ + + + [...] | | | | | [place] [address] | | | | | | [phone] | | | | | | | | | | | | Julia Fisher, | | | | | | PT | | +--------+ + + + + | 02/18/ | Appointment | Rehabilitation | Erika Ernst, | | | 2019 | | | DO [address] | | | | | | [place] [address] | | | | | | [phone] | | | | | | | | | | | | Genesis Ayon OT | | +--------+ + + + + | 02/25/ | Office | Primary Care | Erika Ernst, | | | 2019 | Visit | | DO [address] | | | | | | [place] [address] | | | | | | [phone] | | | | | | | [...] | | | | | [place] [address] | | | | | | [phone] | | | | | | | | +--------+ + + + + | 02/27/ | Appointment | Radiology | Dhara, | | | 2019 | | | [address] | | | | | | [address] [place], | | | | | | [place] [address] | | | | | | [phone] | | | | | | | [...] [place] | | | | | | [place] [address] | | | | | | [phone] | | | | | | | [...] [place] | | | | | | [address] | | | | | | [phone] | | | | | | | [...] | | | | | [place] [address] | | | | | | [phone] | | | | | | | | | | | | Azul Yeboah, | | | | | | MD [address] | | | | | | [place] | | | | | | [place] [address] | | | | | | [phone] | | | | | | | [...] | | | | | | [place] [address] | | | | | | [phone] | | | | | | | | +--------+ + + + + documented as of this encounter Visit Diagnoses Not on filedocumented in this encounter"
--- OUTSIDE RECORDS SUMMARY | ~2020-02-18 | XMS | Encounter Summary ---
Demographics + + + | Address | [address] | | | [place] [address] | + + + | Home Phone [...] Team Providers + +------+ + | Care Boom Conveyor Operator Name | Role | Phone | [...] ORTHOPEDIC | MD Malcolm [address] | [facility]) | | | | [address] [place] | [address] [place] | | | | | [place], [place] | [place] [address] | | | | | [address] | [phone] | | | | | [phone] | | | +--------+ + + + [...] | | | | | [place] [address] | | | | | | [phone] | | | | | | | | | | | | Julia Fisher, | | | | | | PT | | +--------+ + + + + | 02/18/ | Appointment | Rehabilitation | Erika Ernst, | | | 2019 | | | DO [address] | | | | | | [place] [address] | | | | | | [phone] | | | | | | | | | | | | Genessi Ayon OT | | +--------+ + + + + | 02/25/ | Office | Primary Care | Erika Ernst, | | | 2019 | Visit | | DO [address] | | | | | | [place] [address] | | | | | | [phone] | | | | | | | [...] | | | | | [place] [address] | | | | | | [phone] | | | | | | | | +--------+ + + + + | 02/27/ | Appointment | Radiology | Dhara, | | | 2019 | | | [address] | | | | | | 4TH [facility], | | | | | | [place] [address] | | | | | | [phone] | | | | | | | [...] [place] | | | | | | [place] [address] | | | | | | [phone] | | | | | | | [...] [place] | | | | | | [address] | | | | | | [phone] | | | | | | | [...] | | | | | [place] [address] | | | | | | [phone] | | | | | | | | | | | | Azul Yeboah, | | | | | | MD [address] | | | | | | [place] | | | | | | [place] [address] | | | | | | [phone] | | | | | | | [...] | | | | | | [place] [address] | | | | | | [phone] | | | | | | | | +--------+ + + + + documented as of this encounter Visit Diagnoses Not on filedocumented in this encounter"
--- OUTSIDE RECORDS SUMMARY | ~2020-02-18 | XMS | Encounter Summary ---
Demographics + + + | Address | [address] | | | [place] [address] | + + + | Home Phone [...] Providers + +------+ + | Care Customer Data Technician Name | Role | Phone | [...] | [facility] | [place] [address] | | | | | [address] [place], | [phone] | | | | | [place] [address] | | | | | | [phone] | | | +--------+ + + + [...] | | | | | [place] [address] | | | | | | [phone] | | | | | | | | | | | | Julia Fisher, | | | | | | PT | | +--------+ + + + + | 02/18/ | Appointment | Rehabilitation | Erika Ernst, | | | 2019 | | | DO [address] | | | | | | [place] [address] | | | | | | [phone] | | | | | | | | | | | | Genesis Ayon OT | | +--------+ + + + + | 02/25/ | Office | Primary Care | Erika Ernst, | | | 2019 | Visit | | DO [address] | | | | | | [place] [address] | | | | | | [phone] | | | | | | | [...] | | | | | [place] [address] | | | | | | [phone] | | | | | | | | +--------+ + + + + | 02/27/ | Appointment | Radiology | Dhara, | | | 2019 | | | [address] | | | | | | 4TH [facility], | | | | | | [place] [address] | | | | | | [phone] | | | | | | | [...] | | | | | [place] [address] | | | | | | [phone] | | | | | | | [...] [place] | | | | | | [address] | | | | | | [phone] | | | | | | | [...] | | | | | [place] [address] | | | | | | [phone] | | | | | | | | | | | | Azul Yeboah, | | | | | | MD [address] | | | | | | [place] | | | | | | [place] [address] | | | | | | [phone] | | | | | | | [...] | | | | | | [place] [address] | | | | | | [phone] | | | | | | | | +--------+ + + + + documented as of this encounter Visit Diagnoses Not on filedocumented in this encounter"
--- OUTSIDE RECORDS SUMMARY | ~2020-02-18 | XMS | Encounter Summary ---
Demographics + + + | Address | [address] | | | [place] [address] | + + + | Home Phone [...] Team Providers + +------+ + | Care Plate Painter Name | Role | Phone | + +------+ + PCP | Unavailable | + +------+ + Encounter Details +--------+ + + + + | Date | Type | Department | Care Team | Description | +--------+ + + + + | 05/07/ | [facility] | Spenser Roberts NP | | | 2015 | Encounter | [facility] | [address], | | | | | [facility] [address] | [place] [address] | | | | | 4[address] [facility], | [phone] | | | | | [place] [address] | | | | | | [phone] | | | +--------+ + + + [...] | | | | | [place] [address] | | | | | | [phone] | | | | | | | | | | | | Julia Fisher, | | | | | | PT | | +--------+ + + + + | 02/18/ | Appointment | Rehabilitation | Erika Ernst, | | | 2019 | | | DO [address] | | | | | | [place] [address] | | | | | | [phone] | | | | | | | | | | | | Genesis Ayon OT | | +--------+ + + + + | 02/25/ | Office | Primary Care | Erika Ernst, | | | 2019 | Visit | | DO [address] | | | | | | [place] [address] | | | | | | [phone] | | | | | | | [...] | | | | | [place] [address] | | | | | | [phone] | | | | | | | | +--------+ + + + + | 02/27/ | Appointment | Radiology | Dhara, | | | 2019 | | | [address] | | | | | | 4TH [facility], | | | | | | [place] [address] | | | | | | [phone] | | | | | | | | +--------+ + + + + | 03/04/ | Appointment | Rehabilitation | Genesis Ayon OT | | | 2019 | | | | | +--------+ + + + + | 03/09/ | Office | Orthopedic Surgery | Jeffrey Gandhi, | | 2019 | Visit | | [address] | | | | | | [place] [address] | | | | | | [phone] | | | | | | | [...] [place] | | | | | | [address] | | | | | | [phone] | | | | | | | [...] | | | | | [place] [address] | | | | | | [phone] | | | | | | | | | | | | Azul Yeboah, | | | | | | MD [address] | | | | | | [place] | | | | | | [place] [address] | | | | | | [phone] | | | | | | | [...] | | | | | | [place] [address] | | | | | | [phone] | | | | | | | | +--------+ + + + + documented as of this encounter Visit Diagnoses Not on filedocumented in this encounter"
--- OUTSIDE RECORDS SUMMARY | ~2020-02-18 | XMS | Encounter Summary ---
Demographics + + + | Address | [address] | | | [place] [address] | + + + | Home Phone [...] Team Providers + +------+ + | Care Dip Lube Operator Name | Role | Phone | [...] | [facility] [address] | [place] [address] | | | | | [address] [place], | [phone] | | | | | [place] [address] | | | | | | [phone] | | | +--------+ + + + [...] | | | | | [place] [address] | | | | | | [phone] | | | | | | | | | | | | Forma, Julia M, | | | | | | PT | | +--------+ + + + + | 02/18/ | Appointment | Rehabilitation | Erika Ernst, | | | 2019 | | | DO [address] | | | | | | [place] [address] | | | | | | [phone] | | | | | | | | | | | | Genesis Ayon OT | | +--------+ + + + + | 02/25/ | Office | Primary Care | Erika Ernst, | | | 2019 | Visit | | DO [address] | | | | | | [place] [address] | | | | | | [phone] | | | | | | | [...] | | | | | [place] [address] | | | | | | [phone] | | | | | | | | +--------+ + + + + | 02/27/ | Appointment | Radiology | Dhara, | | | 2019 | | | [address] | | | | | | 4TH [facility], | | | | | | [place] [address] | | | | | | [phone] | | | | | | | [...] ST | | | | | | [place] [address] | | | | | | [phone] | | | | | | | [...] DR | | | | | | [place] | | | | | | [address] | | | | | | [phone] | | | | | | | [...] | | | | | [place] [address] | | | | | | [phone] | | | | | | | | | | | | Azul Yeboah, | | | | | | MD [address] | | | | | | [place] | | | | | | [place] [address] | | | | | | [phone] | | | | | | | [...] | | | | | | [place] [address] | | | | | | [phone] | | | | | | | | +--------+ + + + + documented as of this encounter Visit Diagnoses Not on filedocumented in this encounter"
--- OUTSIDE RECORDS SUMMARY | ~2020-02-18 | XMS | Encounter Summary ---
Demographics + + + | Address | [address] | | | [place] [address] | + + + | Home Phone [...] Providers + +------+ + | Care Field Operations Manager Name | Role | Phone [...] | | | of left | [place] [address] | [place] [address] | | | | | ankle, | Phone: | Phone: | | | | | initial | [phone] | [phone] | | | | | encounter | Fax: | Fax: | | | | | Procedures | [phone] | [phone] | | | | | PT EVAL [...] [address] [place] | [place] [address] | ligament of left | | | | [place], [place] | [phone] | ankle, initial | | | | [address] | | encounter | | | | [phone] | Nick Barrios I, PT | | [...] Patient would benefit from skilled physical therapy instructor apy in order to address noted deficits [...] at 4/10 currently. Treatment Plan/Interventions PT EvaluationPT Re-Tezlmxavfv06541 - Therapeutic Eqpbpvzf47806 - Neuromuscular Reeducation9 7116 - Gait Fnixpmzb22789 - Therapeutic Zbunpbqpsk77597 - Manual Mwkcwjo52648 - Self Care/Ho me Elkhowkgoz01267 - Group Therapeutic Psdpaaotza43318 - Aquatic Therapy/Dslgsglxc13458 - Io yvlxuhmgtcv73191 - TENS Application/Voupbwjmoks41511 - Electrical Stimulation, Njhbrvqpjo717 35 - Ultrasound Electronically signed by: Nick Barrios PT, 07/05/2018 18:02 Patient Name: Andrea Suh/: 1990/ oseph, Nick Szymanski, PT - 07/05/2018 4:08 PM PDT [facility] PT [address] [place] [address] Physical Therapy Initial Assessment Date: 07/05/2018 Patient [...] tolerance, hikin g. 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 TONSILLECTOMY WISDOM TOOTH EXTRACTION Family History Problem Relation Age of Onset Other (see comment) Mother gallbladder disease Hypertension Father Other (see comment) Father arrhymthmia Breast cancer Sister Cervical cancer Maternal Grandmother Heart attack Maternal Aunt AR Developmental History Allergies Allergen Reactions Escitalopram Palpitations [...] B knee genuvalgum during ambulation. Level of Stanly: independent Additional Documentation: deviations Gait Deviations: stride [...] Certification To: 08/09/2018 Treatment Plan/Interventions PT EvaluationPT Re-Rvigqtqtee18289 - Therapeutic Jkucpxfe28709 - Neuromuscular Reeducation9 7116 - Gait Wpnpcumj24593 - Therapeutic Azkdoxagzq84933 - Manual Lnnxcwj26553 - Self Care/Ho me Gluwnakxuj34122 - Group Therapeutic Qypzomrezc41586 - Aquatic Therapy/Urfdjmxul70680 - Io xcehbdvdpah94268 - TENS Application/Lulbzhusdlp81211 - Electrical Stimulation, Yikefponqu852 35 - Ultrasound Patient and/or family has [...] | | | | | [place] [address] | | | | | | [phone] | | | | | | | | | | | | Julia Fisher, | | | | | | PT | | +--------+ + + + + | 02/18/ | Appointment | Rehabilitation | Erika Ernst, | | | 2019 | | | DO [address] | | | | | | [place] [address] | | | | | | [phone] | | | | | | | | | | | | Genesis Ayon, OT | | +--------+ + + + + | 02/25/ | Office | Primary Care | Erika Ernst, | | | 2019 | Visit | | DO [address] | | | | | | [place] [address] | | | | | | [phone] | | | | | | | [...] | | | | | [place] [address] | | | | | | [phone] | | | | | | | | +--------+ + + + + | 02/27/ | Appointment | Radiology | Dhara, | | | 2019 | | | [address] | | | | | | [address] [place], | | | | | | [place] [address] | | | | | | [phone] | | | | | | | | +--------+ + + + + | 03/04/ | Appointment | Rehabilitation | Genesis Ayon OT | | | 2019 | | | | | +--------+ + + + + | 03/09/ | Office | Orthopedic Surgery | Jeffrey Gandhi, | | 2019 | Visit | | [address] [facility] | | | | | | [place] [address] | | | | | | [phone] | | | | | | | [...] [place] | | | | | | [address] | | | | | | [phone] | | | | | | | [...] | | | | | [place] [address] | | | | | | [phone] | | | | | | | | | | | | Azul Yeboah, | | | | | | MD [address] | | | | | | [place] | | | | | | [place] [address] | | | | | | [phone] | | | | | | | [...] | | | | | | [place] [address] | | | | | | [phone] | | | | | | | | +--------+ + + + + + + +--------+ + + | Name | Type | Priori | Associated Diagnoses | Order Schedule | | | | ty | | | + + +--------+ + + | * [place] [facility] | Outpatient | Routin | Sprain [...]
--- OUTSIDE RECORDS SUMMARY | ~2020-02-18 | XMS | Encounter Summary ---
Demographics + + + | Address | [address] | | | [place] [address] | + + + | Home Phone [...] Providers + +------+ + | Care Wire Frame Maker Name | Role | Phone | [...] Fever (FYI: | | 2019 | | [facility] | [address] [place] | pt had a fever again | | | | MEDICAL [facility] [address] | [facility] [place] [address] | this am) | | | | [address] [place], | [phone] | | | | | [place] [address] | | | | | | [phone] | | | +--------+ + + + [...] | | | | | [place] [address] | | | | | | [phone] | | | | | | | | | | | | Julia Fisher, | | | | | | PT | | +--------+ + + + + | 02/18/ | Appointment | Rehabilitation | Erika Ernst, | | | 2019 | | | DO [address] [place] | | | | | | [place] [address] | | | | | | [phone] | | | | | | | | | | | | Genesis Ayon OT | | +--------+ + + + + | 02/25/ | Office | Primary Care | Erika Ernst, | | | 2019 | Visit | | DO [address] [place] | | | | | | [place] [address] | | | | | | [phone] | | | | | | | [...] | | | | | | [place] [address] | | | | | | [phone] | | | | | | | | +--------+ + + + + | 02/27/ | Appointment | Radiology | Dhara | | | 2019 | | | [address] | | | | | | [address] [place], | | | | | | [place] [address] | | | | | | [phone] | | | | | | | [...] ST | | | | | | [place] [address] | | | | | | [phone] | | | | | | | [...] [place] | | | | | | [address] | | | | | | [phone] | | | | | | | [...] | | | | | [place] [address] | | | | | | [phone] | | | | | | | | | | | | Azul Yeboah, | | | | | | [address] | | | | | | [place] | | | | | | [place] [address] | | | | | | [phone] | | | | | | | [...] | | | | | | [place] [address] | | | | | | [phone] | | | | | | | | +--------+ + + + + documented as of this encounter Visit Diagnoses Not on filedocumented in this encounter"
--- OUTSIDE RECORDS SUMMARY | ~2020-02-18 | XMS | Encounter Summary ---
Demographics + + + | Address | [address] | | | [place] [address] | + + + | Home Phone [...] Team Providers + +------+ + | Care Crime Laboratory Analyst Name | Role | Phone | [...] | [facility] [address] | [place] [address] | | | | | [address] [place], | [phone] | | | | | [place] [address] | | | | | | [phone] | | | +--------+ + + + [...] | | 2019 | | | DO [address] [place] [address] | | | | | | [place], [place] [address] | | | | | | [phone] | | | | | | | | | | | | Julia Fisher, | | | | | | PT | | +--------+ + + + + | 02/18/ | Appointment | Rehabilitation | Erika Ernst, | | | 2019 | | | DO [address] [place] | | | | | | [place] [address] | | | | | | [phone] | | | | | | | | | | | | Genesis Ayon OT | | +--------+ + + + + | 02/25/ | Office | Primary Care | Erika Ernst, | | | 2019 | Visit | | DO [address] [place] | | | | | | [place] [address] | | | | | | [phone] | | | | | | | [...] | | | | | [place] [address] | | | | | | [phone] | | | | | | | | +--------+ + + + + | 02/27/ | Appointment | Radiology | Dhara, | | | 2019 | | | [address] | | | | | [address] [place], | | | | | | [place] [address] | | | | | | [phone] | | | | | | | [...] | | | | | [place] [address] | | | | | | [phone] | | | | | | | [...] [place] | | | | | | [address] | | | | | | [phone] | | | | | | | [...] | | | | | [place] [address] | | | | | | [phone] | | | | | | | | | | | | Azul Yeboah, | | | | | | MD [address] | | | | | | [place] | | | | | | [place] [address] | | | | | | [phone] | | | | | | | [...] | | | | | | [place] [address] | | | | | | [phone] | | | | | | | | +--------+ + + + + documented as of this encounter Visit Diagnoses Not on filedocumented in this encounter"
--- OUTSIDE RECORDS SUMMARY | ~2020-02-18 | XMS | Encounter Summary ---
Demographics + + + | Address | [address] | | | [place] [address] | + + + | Home Phone [...] + +------+ + | Care Director Of [employer] Name | Role | Phone | + [...] (Pt request | | 2020 | | [facility] | [address] | a call back today ) | | | | [facility] | [place] [place] [address] | | | | | [address] [place], | [phone] | | | | | [place] [address] | | | | | | [phone] | | | +--------+ + + + [...] | | | | | [place] [address] | | | | | | [phone] | | | | | | | | | | | | Julia Fisher, | | | | | | PT | | +--------+ + + + + | 02/18/ | Appointment | Rehabilitation | Erika Ernst, | | | 2019 | | | DO [address] | | | | | | [place] [address] | | | | | | [phone] | | | | | | | | | | | | [facility], OT | | +--------+ + + + + | 02/25/ | Office | Primary Care | Erika Ernst, | | | 2019 | Visit | | DO [address] [place] | | | | | | [place] [address] | | | | | | [phone] | | | | | | | [...] | | | | | [place] [address] | | | | | | [phone] | | | | | | | | +--------+ + + + + | 02/27/ | Appointment | Radiology | Dhara, | | | 2019 | | | [address] | | | | | | [address] [facility], | | | | | | [place] [address] | | | | | | [phone] | | | | | | | [...] [place] | | | | | | [facility] [place] [address] | | | | | | [phone] | | | | | | | [...] [place] | | | | | | [address] | | | | | | [phone] | | | | | | | [...] | | | | | [place] [address] | | | | | | [phone] | | | | | | | | | | | | Azul Yeboah, | | | | | | MD [address] | | | | | | [place] | | | | | | [place] [address] | | | | | | [phone] | | | | | | | [...] | | | | | | [place] [address] | | | | | | [phone] | | | | | | | | +--------+ + + + + documented as of this encounter Visit Diagnoses Not on filedocumented in this encounter"
--- OUTSIDE RECORDS SUMMARY | ~2020-02-18 | XMS | Encounter Summary ---
Demographics + + + | Address | [address] | | | [place] [address] | + + + | Home Phone [...] Team Providers + +------+ + | Care Landscape Horticulture Instructor Name | Role | Phone | [...] + + | Authorized | Specialty | Oncology / | Diagnoses | Avery, | [facility] | | | Services | Hematology | Increased | Emily | Hematology | | | Required | and Oncology | risk of | DO Radha | Oncology [address] | | | | | breast | [address] | | | | | cancer | DR, [address] | [place], [place] | | | | | | [place], | [address] | | | | | | [place] | Phone: | | | | | | [address] | [phone] | | | | | | Phone: | Fax: | | | | | | [phone] | [phone] | | | | | | Fax: | | | | | | | [phone] | | + + + + + [...] | 2020 | | [facility] | Radha, [address] | | | | | CL[address] | | | | | DR [place], | [place], [place] | | | | | [place] [address] | [address] | | | | | [phone] | [phone] | | | | | | | [...] 2019 | | | DO [address] | | | | | | [place] [address] | | | | | | [phone] | | | | | | | | | | | | Julia Fisher, | | | | | | PT | | +--------+ + + + + | 02/18/ | Appointment | Rehabilitation | Erika Ernst, | | | 2019 | | | DO [address] [place] | | | | | | [place] [address] | | | | | | [phone] | | | | | | | | | | | | Genesis Ayon OT | | +--------+ + + + + | 02/25/ | Office | Primary Care | Erika Ernst, | | | 2019 | Visit | | DO [address] [place] | | | | | | [place] [address] | | | | | | [phone] | | | | | | | [...] | | | | | [place] [address] | | | | | | [phone] | | | | | | | | +--------+ + + + + | 02/27/ | Appointment | Radiology | Dhara, | | | 2019 | | | [address] | | | | | | 4TH [facility], | | | | | | [place] [address] | | | | | | [phone] | | | | | | | [...] | | | | [place] [address] | | | | | | [phone] | | | | | | | [...] [place] | | | | | | [address] | | | | | | [phone] | | | | | | | [...] | | | | | [place] [address] | | | | | | [phone] | | | | | | | | | | | | Azul Yeboah, | | | | | | MD [address] | | | | | | [place] | | | | | | [place] [address] | | | | | | [phone] | | | | | | | [...] | | | | | | [place] [address] | | | | | | [phone] | | | | | | | | +--------+ + + + + + + +--------+ + + | Name | Type | Priori | Associated Diagnoses | Order Schedule | | | | ty | | | + + +--------+ + + | * [place] [facility] | Outpatient | Routin | Increased risk of | Ordered: 12/16/2019 | | [facility] Oncology - AMB | Referral | e | breast cancer | | | Referral | | | | | + + +--------+ + + documented as of this encounter Visit Diagnoses + + | Diagnosis | + + | Increased risk of breast cancer - Primary Other specified personal history presenting | | hazards to health | + + documented in this encounter"
--- OUTSIDE RECORDS SUMMARY | ~2020-02-18 | XMS | Encounter Summary ---
Demographics + + + | Address | [address] | | | [place] [address] | + + + | Home Phone [...] Providers + +------+ + | Care Metal Pickling Equipment Operator Name | Role | Phone [...] | Diagnoses | [facility] | | | Services | Surgery | Hand | Erika A, DO | Orthopedic | | | Required | | injury, | [address] | [address] | | | | | right, | [place], | [place] | | | | | subsequent | [place] [address] | [place], [place] | | | | | encounter | Phone: | [phone] | | | | | Finger pain, | [phone] | Phone: | | | | | right | Fax: | [phone] | | | | | Procedures | [phone] | Fax: | | | | | [place] | | [phone] | +--------+ + + + + + [...] | MEDICAL CL[facility] [address] | [place] [address] | (Primary Dx); | | | | [address] [place], | [phone] | Finger pain, right | | | | [place] [address] | | | | | | [phone] | | | +--------+---------+ + + + [...] attention to this issue. 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 No numbness or the [...] injury, right, subsequent encounter AMB Referral to [facility] Orth[facility] 2. Finger pain, right AMB Referral to [facility] Orth[facility] Plan: Referral to Ortho for [...] | | | | | [place] [address] | | | | | | [phone] | | | | | | | | | | | | Julia Fisher, | | | | | | PT | | +--------+ + + + + | 02/18/ | Appointment | Rehabilitation | Erika Ernst, | | | 2019 | | | DO [address] [place] | | | | | | [place] [address] | | | | | | [phone] | | | | | | | | | | | | Genesis Ayon OT | | +--------+ + + + + | 02/25/ | Office | Primary Care | Erika Ernst, | | | 2019 | Visit | | DO [address] [place] | | | | | | [place] [address] | | | | | | [phone] | | | | | | | [...] | | | | | [place] [address] | | | | | | [phone] | | | | | | | | +--------+ + + + + | 02/27/ | Appointment | Radiology | Dhara, | | | 2019 | | | [address] | | | | | | [address] [place], | | | | | | [place] [address] | | | | | | [phone] | | | | | | | [...] SERVICES | | | | | | [place] [address] | | | | | | [phone] | | | | | | | [...] [place] | | | | | | [address] | | | | | | [phone] | | | | | | | [...] | | | | | [place] [address] | | | | | | [phone] | | | | | | | | | | | | Azul Yeboah, | | | | | | [address] | | | | | | [place] | | | | | | [place] [address] | | | | | | [phone] | | | | | | | [...] | | | | | | [place] [address] | | | | | | [phone] | | | | | | | [...]
--- OUTSIDE RECORDS SUMMARY | ~2020-02-18 | XMS | Encounter Summary ---
Demographics + + + | Address | [address] | | | [place] [address] | + + + | Home Phone [...] Team Providers + +------+ + | Care Funeral Pre Arrangement Specialist Name | Role | Phone | [...] | | | | [place] | [place] [address] | [place], [place] | | | | | l allergies | Phone: | [address] Phone: | | | | | Chronic | [phone] | [phone] | | | | | congestion | Fax: | Fax: | | | | | of paranasal | [phone] | [phone] | | | | | sinus | [...] | MEDICAL CLINIC [address] | [place] [address] | Environmental | | | | [address] [place], | [phone] | allergies; Chronic | | | | [place] [address] | | congestion of | | | | [phone] | | paranasal sinus; | | | [...] will add the chronic ear issue and fitness coach montrell sinus to the referral for Dr [...] | | | | | [place] [address] | | | | | | [phone] | | | | | | | | | | | | Julia Fisher, | | | | | | PT | | +--------+ + + + + | 02/18/ | Appointment | Rehabilitation | Erika Ernst, | | | 2019 | | | DO [address] [place] | | | | | | [place] [address] | | | | | | [phone] | | | | | | | | | | | | Genesis Ayon OT | | +--------+ + + + + | 02/25/ | Office | Primary Care | Erika Ernst, | | | 2019 | Visit | | DO [address] [place] | | | | | | [place] [address] | | | | | | [phone] | | | | | | | [...] | | | | | [place] [address] | | | | | | [phone] | | | | | | | | +--------+ + + + + | 02/27/ | Appointment | Radiology | Dhara, | | | 2019 | | | [address] | | | | | | [address] [place], | | | | | | [place] [address] | | | | | | [phone] | | | | | | | [...] HEALTH | | | | | | [place] [address] | | | | | | [phone] | | | | | | | [...] [place] | | | | | | [address] | | | | | | [phone] | | | | | | | [...] | | | | | [place] [address] | | | | | | [phone] | | | | | | | | | | | | Azul Yeboah, | | | | | | MD [address] | | | | | | [place] | | | | | | [place] [address] | | | | | | [phone] | | | | | | | [...] | | | | | | [place] [address] | | | | | | [phone] | | | | | | | [...]
--- OUTSIDE RECORDS SUMMARY | ~2020-02-18 | XMS | Encounter Summary ---
Demographics + + + | Address | [address] | | | [place] [address] | + + + | Home Phone [...] Team Providers + +------+ + | Care Pipe Puller Name | Role | Phone | + [...] | [facility] [address] | [place] [address] | | | | | [address] [place], | [phone] | | | | | [place] [address] | | | | | | [phone] | | | +--------+ + + + [...] | | | | | [place] [address] | | | | | | [phone] | | | | | | | | | | | | Forma, Julia M, | | | | | | PT | | +--------+ + + + + | 02/18/ | Appointment | Rehabilitation | Erika Ernst, | | | 2019 | | | DO [address] [place] | | | | | | [place] [address] | | | | | | [phone] | | | | | | | | | | | | Genesis Ayon OT | | +--------+ + + + + | 02/25/ | Office | Primary Care | Erika Ernst, | | | 2019 | Visit | | DO [address] [place] | | | | | | [place] [address] | | | | | | [phone] | | | | | | | [...] | | | | | [place] [address] | | | | | | [phone] | | | | | | | | +--------+ + + + + | 02/27/ | Appointment | Radiology | Dhara, | | | 2019 | | | [address] | | | | | | 4TH [facility], | | | | | | [place] [address] | | | | | | [phone] | | | | | | | [...] ST | | | | | | [place] [address] | | | | | | [phone] | | | | | | | [...] [place] | | | | | | [address] | | | | | | [phone] | | | | | | | [...] [address] | | | | | | [phone] | | | | | | | | | | | | Azul Yeboah, | | | | | | MD [address] | | | | | | [place] | | | | | | [place] [address] | | | | | | [phone] | | | | | | | [...] | | | | | | [place] [address] | | | | | | [phone] | | | | | | | | +--------+ + + + + documented as of this encounter Visit Diagnoses Not on filedocumented in this encounter"
--- OUTSIDE RECORDS SUMMARY | ~2020-02-18 | XMS | Encounter Summary ---
Demographics + + + | Address | [address] | | | [place] [address] | + + + | Home Phone [...] Providers + +------+ + | Care Investigator Internal Revenue Name | Role | Phone | + +------+ + PCP | Unavailable | + +------+ + Encounter Details +--------+ + + + + | Date | Type | Department | Care Team | Description | +--------+ + + + + | 01/17/ | Silvia [facility] | Julio Calderon | | | 2012 | Encounter | HOSPITAL EMERGENCY | MD [address] | | | | | CENTER [address] | [facility] | | | | | DR [place] | [employer] [address] | | | | | [address] | [phone] | | | | | [phone] | | | +--------+ + + + [...] | | | | | [place] [address] | | | | | | [phone] | | | | | | | | | | | | Julia Fisher, | | | | | | PT | | +--------+ + + + + | 02/18/ | Appointment | Rehabilitation | Erika Ernst, | | | 2019 | | | DO [address] [place] | | | | | | [place] [address] | | | | | | [phone] | | | | | | | | | | | | [facility] OT | | +--------+ + + + + | 02/25/ | Office | Primary Care | Erika Ernst, | | | 2019 | Visit | | DO [address] [place] | | | | | | [place] [address] | | | | | | [phone] | | | | | | | [...] | | | | | [place] [address] | | | | | | [phone] | | | | | | | | +--------+ + + + + | 02/27/ | Appointment | Radiology | Dhara, | | | 2019 | | | [address] | | | | | | 4TH [facility], | | | | | | [place] [address] | | | | | | [phone] | | | | | | | | +--------+ + + + + | 03/04/ | Appointment | Rehabilitation | Genesis Ayon OT | | | 2019 | | | | | +--------+ + + + + | 03/09/ | Office | Orthopedic Surgery | Jeffrey Gandhi, | | | 2019 | Visit | | [address] | | | | | | [place] [address] | | | | | | [phone] | | | | | | | [...] [place] | | | | | | [address] | | | | | | [phone] | | | | | | | [...] | | | | | [place] [address] | | | | | | [phone] | | | | | | | | | | | | Azul Yeboah, | | | | | | MD [address] | | | | | | [place] | | | | | | [place] [address] | | | | | | [phone] | | | | | | | [...] | | | | | | [place] [address] | | | | | | [phone] | | | | | | | | +--------+ + + + + documented as of this encounter Visit Diagnoses Not on filedocumented in this encounter"
--- OUTSIDE RECORDS SUMMARY | ~2020-02-18 | XMS | Encounter Summary ---
Demographics + + + | Address | [address] | | | [place] [address] | + + + | Home Phone [...] Team Providers + +------+ + | Care Lagging Machine Operator Name | Role | Phone | + +------+ + | Erika Ernst DO | PCP | | + +------+ + Encounter Details +--------+ + + + + | Date | Type | Department | Care Team | Description | +--------+ + + + + | 10/17/ | [facility] [place] | Erika Ernst, | Screening for breast | | 2019 | Encounter | Hospital P | DO [address] | cancer | | | | Mammography [address] | [place] [address] | | | | | [address] [place] | [phone] | | | | | [place], [place] | | | | | | [address] | | | | | | [phone] | | | +--------+ + + + [...] | | | | | [place] [address] | | | | | | [phone] | | | | | | | | | | | | Julia Fisher, | | | | | | PT | | +--------+ + + + + | 02/18/ | Appointment | Rehabilitation | Erika Ernst, | | | 2019 | | | DO [address] [place] | | | | | | [place] [address] | | | | | | [phone] | | | | | | | | | | | | Genesis Ayon OT | | +--------+ + + + + | 02/25/ | Office | Primary Care | Erika Ernst, | | | 2019 | Visit | | DO [address] [place] | | | | | | [place] [address] | | | | | | [phone] | | | | | | | [...] | | | | | [place] [address] | | | | | | [phone] | | | | | | | | +--------+ + + + + | 02/27/ | Appointment | Radiology | Dhara, | | | 2019 | | | [address] | | | | | | [address] [place], | | | | | | [place] [address] | | | | | | [phone] | | | | | | | | +--------+ + + + + | 03/04/ | Appointment | Rehabilitation | Genesis Ayon OT | | | 2019 | | | | | +--------+ + + + + | 03/09/ | Office | Orthopedic Surgery | Jeffrey Gandhi, | | | 2019 | Visit | | [address] | | | | | | [place] [address] | | | | | | [phone] | | | | | | | [...] [place] | | | | | | [address] | | | | | | [phone] | | | | | | | [...] | | | | | [place] [address] | | | | | | [phone] | | | | | | | | | | | | Azul Yeboah, | | | | | | MD [address] | | | | | | [place] | | | | | | [place] [address] | | | | | | [phone] | | | | | | | [...] | | | | | | [place] [address] | | | | | | [phone] | | | | | | | [...]
--- OUTSIDE RECORDS SUMMARY | ~2020-02-18 | XMS | Encounter Summary ---
Demographics + + + | Address | [address] | | | [place] [address] | + + + | Home Phone [...] Providers + +------+ + | Care Health Information Systems Technician Name | Role | Phone | [...] | | | | s (de | [place], [place] | [place] [address] | | | | | quervain) | [address] | Phone: | | | | | Pain in | Phone: | [phone] | | | | | right wrist | [phone] | Fax: | | | | | Procedures | Fax: | [phone] | | | | | OT EVAL | [phone] | | +--------+--------+ + + + + [...] | | [address] [place] | [place] [address] | | | | | [place] | [phone] | | | | | [address] | | | | | | [phone] | Nakia Koo OT | | +--------+ [...] Koo, OT - 08/07/2018 4:49 PM PST [facility] [address] [place] [address] Occupational Therapy Initial Assessment Date: 08/07/2018 Patient [...] new jar: 5 - Unable 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 Carry a shopping bag [...] Flexion: 22 Strength: Left Hand Strength - Cold Reduction Roller (lbs) L Cold Reduction Roller Trial 1: 60 L Cold Reduction Roller Trial 2: 52 L Cold Reduction Roller Trial 3: 55 L Cold Reduction Roller Trial Average: 55.67 L Three Jaw Payam Trial 1: 13 L Three Jaw Payam Trial 2: 13 L Three Jaw Payam Trial 3: 14 L Three Jaw Payam Trial Average: 13.33 L Lateral Pinch Trial 1: 17 L Lateral Pinch Trial 2: 17 L Lateral Pinch Trial 3: 18 L Lateral Pinch Trial Average: 17.33 Right Hand Strength - Cold Reduction Roller (lbs) R Cold Reduction Roller Trial 1: 15 R Cold Reduction Roller Trial 2: 24 R Cold Reduction Roller Trial 3: 21 R Cold Reduction Roller Trial Average: 20 R Three Jaw Payam [...] in 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, 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 [...] Goal 2: The pt will have 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 research test engine operator strength of 50 lbs by discharge Goal 2 Status: At evaluation, right research test engine operator is 20 lbs and left is 56 [...] 08/07/2018 Certification To: 10/30/2018 Treatment Plan/Interventions OT [id number] - Therapeutic Usdahibz27363 - Therapeutic Pqvwgqtbym58803 - Self Care/Ho me Rgxhsdcrjb63613 - Manual Csxxdzr68502 - Orthotic/Prosthetic Zfymycco56334 - Abcuouwqnw611 34 - Contrast Zdhp18445 - Paraffin BathSplinting Moist heat, cold therapy [...] | | | | | [place] [address] | | | | | | [phone] | | | | | | | | | | | | Julia Fisher, | | | | | | PT | | +--------+ + + + + | 02/18/ | Appointment | Rehabilitation | Erika Ernst, | | 2019 | | | DO [address] [place] | | | | | | [place] [address] | | | | | | [phone] | | | | | | | | | | | | Genesis Ayon, SUSAN | | +--------+ + + + + | 02/25/ | Office | Primary Care | Erika Ernst, | | | 2019 | Visit | | DO [address] [place] [address] | | | | | | [place] [address] | | | | | | [phone] | | | | | | | [...] | | | | | [place] [address] | | | | | | [phone] | | | | | | | | +--------+ + + + + | 02/27/ | Appointment | Radiology | Dhara, | | | 2019 | | | [address] | | | | | | [address] [place], | | | | | | [place] [address] | | | | | | [phone] | | | | | | | | +--------+ + + + + | 03/04/ | Appointment | Rehabilitation | Genesis Ayon OT | | | 2019 | | | | | +--------+ + + + + | 03/09/ | Office | Orthopedic Surgery | Jeffrey Gandhi, | | | 2019 | Visit | | [address] | | | | | | [place] [address] | | | | | | [phone] | | | | | | | [...] [place] | | | | | | [address] | | | | | | [phone] | | | | | | | [...] | | | | | [place] [address] | | | | | | [phone] | | | | | | | | | | | | Azul Yeboah, | | | | | | MD [address] | | | | | | [place] | | | | | | [place] [address] | | | | | | [phone] | | | | | | | [...] | | | | | | [place] [address] | | | | | | [phone] | | | | | | | | +--------+ + + + + documented as of this encounter Visit Diagnoses + + | Diagnosis | + + | Radial styloid tenosynovitis | + + documented in this encounter"
--- OUTSIDE RECORDS SUMMARY | ~2020-02-18 | XMS | Encounter Summary ---
Demographics + + + | Address | [address] | | | [place] [address] | + + + | Home Phone [...] Team Providers + +------+ + | Care Piece Work Checker Name | Role | Phone | [...] | [facility] [address] | [place] [address] | | | | | [address] [place], | [phone] | | | | | [place] [address] | | | | | | [phone] | | | +--------+ + + + [...] | | | | | [place] [address] | | | | | | [phone] | | | | | | | | | | | | Julia Fisher, | | | | | | PT | | +--------+ + + + + | 02/18/ | Appointment | Rehabilitation | Erika Ernst, | | | 2019 | | | DO [address] [place] | | | | | | [place] [address] | | | | | | [phone] | | | | | | | | | | | | Genesis Ayon OT | | +--------+ + + + + | 02/25/ | Office | Primary Care | Erika Ernst, | | | 2019 | Visit | | DO [address] [place] | | | | | | [place] [address] | | | | | | [phone] | | | | | | | [...] | | | | | [place] [address] | | | | | | [phone] | | | | | | | | +--------+ + + + + | 02/27/ | Appointment | Radiology | Dhara, | | | 2019 | | | [address] | | | | | | 4TH [facility], | | | | | | [place] [address] | | | | | | [phone] | | | | | | | | +--------+ + + + + | 03/04/ | Appointment | Rehabilitation | Genesis Ayon OT | | | 2019 | | | | | +--------+ + + + + | 03/09/ | Office | Orthopedic Surgery | Jeffrey Gandhi, | | | 2019 | Visit | | [address] | | | | | | [place] [address] | | | | | | [phone] | | | | | | | [...] [place] | | | | | | [address] | | | | | | [phone] | | | | | | | [...] | | | | | [place] [address] | | | | | | [phone] | | | | | | | | | | | | Azul Yeboah, | | | | | | MD [address] | | | | | | [place] | | | | | | [place] [address] | | | | | | [phone] | | | | | | | [...] | | | | | | [place] [address] | | | | | | [phone] | | | | | | | | +--------+ + + + + documented as of this encounter Visit Diagnoses Not on filedocumented in this encounter"
--- OUTSIDE RECORDS SUMMARY | ~2020-02-18 | XMS | Encounter Summary ---
Demographics + + + | Address | [address] | | | [place] [address] | + + + | Home Phone [...] Team Providers + +------+ + | Care Pets Salesperson Name | Role | Phone | [...] [place] | | | | | [place] [address] | [address] | | | | | [phone] | [phone] | | | | | | | [...] | | 2019 | | | DO [facility] | | | | | | [place] [address] | | | | | | [phone] | | | | | | | | | | | | Julia Fisher, | | | | | | PT | | +--------+ + + + + | 02/18/ | Appointment | Rehabilitation | Erika Ernst, | | | 2019 | | | DO [address] [place] | | | | | | [place] [address] | | | | | | [phone] | | | | | | | | | | | | [facility] OT | | +--------+ + + + + | 02/25/ | Office | Primary Care | Erika Ernst, | | | 2019 | Visit | | DO [address] [place] | | | | | | [place] [address] | | | | | | [phone] | | | | | | | | +--------+ + + + + | 02/25/ | Appointment | Rehabilitation | Genesis Ayon OT | | | 2019 | | | | | +--------+ + + + + | 02/26/ | Virtual | Rehabilitation | Usha Rodriguze | | | 2019 | Office | | MD Precious [address] | | | | Visit | | [address] [place] | | | | | | [place] [address] | | | | | | [phone] | | | | | | | | +--------+ + + + + | 02/27/ | Appointment | Radiology | Dhara, | | | 2019 | | | [address] | | | | | | [facility] [facility], | | | | | | [place] [address] | | | | | | [phone] | | | | | | | | +--------+ + + + + | 03/04/ | Appointment | Rehabilitation | Genesis Ayon OT | | | 2019 | | | | | +--------+ + + + + | 03/09/ | Office | Orthopedic Surgery | Jeffrey Gandhi, | | | 2019 | Visit | | [address] | | | | | | [place] [address] | | | | | | [phone] | | | | | | | [...] [place] | | | | | | [address] | | | | | | [phone] | | | | | | | [...] | | | | | [place] [address] | | | | | | [phone] | | | | | | | | | | | | Azul Yeboah, | | | | | | MD [address] | | | | | | [place] | | | | | | [place] [address] | | | | | | [phone] | | | | | | | [...] | | | | | | [place] [address] | | | | | | [phone] | | | | | | | | +--------+ + + + + documented as of this encounter Visit Diagnoses Not on filedocumented in this encounter"
--- OUTSIDE RECORDS SUMMARY | ~2020-02-18 | XMS | Encounter Summary ---
Demographics + + + | Address | [address] | | | [place] [address] | + + + | Home Phone [...] Team Providers + +------+ + | Care Sensitometrist Name | Role | Phone | + [...] | | | | s (de | [place], [place] | [place] [address] | | | | | quervain) | [address] | Phone: | | | | | Pain in | Phone: | [phone] | | | | | right wrist | [phone] | Fax: | | | | | Procedures | Fax: | [phone] | | | | | OT TREAT | [phone] | | +--------+--------+ + + + + [...] | | [address] [place] | [place] [address] | wrist pain | | | | [place] | [phone] | | | | | [address] | | | | | | [phone] | Milla Gracia, OT | | +--------+ [...] Gracia, OT - 08/14/2018 4:58 PM PST [facility] OT [address] [place] [address] Occupational Therapy Daily Treatment Note Date: 08/14/2018 [...] in 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, 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 n the [...] | | | | | [place] [address] | | | | | | [phone] | | | | | | | | | | | | Julia Fisher, | | | | | | PT | | +--------+ + + + + | 02/18/ | Appointment | Rehabilitation | Erika Ernst, | | | 2019 | | | DO [address] | | | | | | [place] [address] | | | | | | [phone] | | | | | | | | | | | | [facility] OT | | +--------+ + + + + | 02/25/ | Office | Primary Care | Erika Ernst, | | | 2019 | Visit | | DO [address] [place] | | | | | | [place] [address] | | | | | | [phone] | | | | | | | [...] | | | | | [place] [address] | | | | | | [phone] | | | | | | | | +--------+ + + + + | 02/27/ | Appointment | Radiology | Dhara, | | 2019 | | | DWAINE Ross [address] [place], | | | | | | [place] [address] | | | | | | [phone] | | | | | | | | +--------+ + + + + | 03/04/ | Appointment | Rehabilitation | [facility] Ayon OT | | | 2019 | | | | | +--------+ + + + + | 03/09/ | Office | Orthopedic Surgery | Jeffrey Gandhi, | | | 2019 | Visit | | [address] | | | | | | [place] [address] | | | | | | [phone] | | | | | | | [...] [place] | | | | | | [address] | | | | | | [phone] | | | | | | | [...] | | | | | [place] [address] | | | | | | [phone] | | | | | | | | | | | | Azul Yeboah, | | | | | | MD [address] | | | | | | [place] | | | | | | [place] [address] | | | | | | [phone] | | | | | | | [...] | | | | | | [place] [address] | | | | | | [phone] | | | | | | | | +--------+ + + + + documented as of this encounter Visit Diagnoses + + | Diagnosis | + + | Radial styloid tenosynovitis | + + | Right wrist pain Pain in joint, forearm | + + documented in this encounter"
--- OUTSIDE RECORDS SUMMARY | ~2020-02-18 | XMS | Encounter Summary ---
Demographics + + + | Address | [address] | | | [place] [address] | + + + | Home Phone [...] Providers + +------+ + | Care Strip Polisher Name | Role | Phone | [...] Provider Unknown | | | | | [place], [place] | [phone] | | | | | [phone] | (Fax) | | | | | [phone] | | | +--------+ + + + [...] | 03/19/20 | | | (VITAMIN D3) [id number] | mouth Once a week | tablet [...] | | | DO [address] | | | | | | [place] [address] | | | | | | [phone] | | | | | | | | | | | | Julia Fisher, | | | | | | PT | | +--------+ + + + + | 02/18/ | Appointment | Rehabilitation | Erika Ernst, | | | 2019 | | | DO [address] | | | | | | [place] [address] | | | | | | [phone] | | | | | | | | | | | | Genessi Ayon OT | | +--------+ + + + + | 02/25/ | Office | Primary Care | Erika Ernst, | | | 2019 | Visit | | DO [address] | | | | | | [place] [address] | | | | | | [phone] | | | | | | | [...] | | | | | [place] [address] | | | | | | [phone] | | | | | | | | +--------+ + + + + | 02/27/ | Appointment | Radiology | Dhara, | | | 2019 | | | [address] | | | | | | 4TH [facility], | | | | | | [place] [address] | | | | | | [phone] | | | | | | | [...] MOORE | | | | | | [place] [address] | | | | | | [phone] | | | | | | | [...] [place] | | | | | | [address] | | | | | | [phone] | | | | | | | [...] | | | | | [place] [address] | | | | | | [phone] | | | | | | | | | | | | Azul Yeboah, | | | | | | MD [address] | | | | | | [place] | | | | | | [place] [address] | | | | | | [phone] | | | | | | | [...] | | | | | [address] [place], | | | | | | [place] [address] | | | | | | [phone] | | | | | | | [...]
--- OUTSIDE RECORDS SUMMARY | ~2020-02-18 | XMS | Encounter Summary ---
Demographics + + + | Address | [address] | | | [place] [address] | + + + | Home Phone [...] Providers + +------+ + | Care Rug Repairer Name | Role | Phone | [...] | | | of left | [place] [address] | [place] [address] | | | | | ankle, | Phone: | Phone: | | | | | initial | [phone] | [phone] | | | | | encounter | Fax: | Fax: | | | | | Procedures | [phone] | [phone] | | | | | PT TREAT [...] [address] | [place] [address] | encounter (Primary | | | | [place] | [phone] | Dx) | | | | [address] | | | | | | [phone] | Nick Barrios I, PT | | [...] might be different fro m the original. [facility] PT [address] [place] [address] Physical Therapy Daily Treatment Note Date: 09/07/2018 [...] in favor of SL heel raise with BODY SHOP TECHNICIAN. ONGOING: SLS on even surface 3x30 seconds [...] minutes) Rhomberg stance on airex eyes closed BODY SHOP TECHNICIAN as needed 2x1 minute // SLS on even ground BODY SHOP TECHNICIAN grab bar as needed 1x30 seconds 2x1 [...] [address] | | | | | | [phone] | | | | | | | | | | | | Julia Fisher, | | | | | | PT | | +--------+ + + + + | 02/18/ | Appointment | Rehabilitation | Erika Ernst, | | | 2019 | | | DO [address] [place] | | | | | | [place] [address] | | | | | | [phone] | | | | | | | | | | | | Genesis Aoyn OT | | +--------+ + + + + | 02/25/ | Office | Primary Care | KleverErika, | | | 2019 | Visit | | DO [address] [place] [address] ST [place] | | | | | | [place] [address] | | | | | | [phone] | | | | | | | [...] | | | | | [place] [address] | | | | | | [phone] | | | | | | | | +--------+ + + + + | 02/27/ | Appointment | Radiology | Dhara, | | | 2019 | | | [address] | | | | | | [address] [place], | | | | | | [place] [address] | | | | | | [phone] | | | | | | | | +--------+ + + + + | 03/04/ | Appointment | Rehabilitation | Genesis Ayon OT | | | 2019 | | | | | +--------+ + + + + | 03/09/ | Office | Orthopedic Surgery | Jeffrey Gandhi, | | | 2019 | Visit | | [address] [facility] | | | | | | [place] [address] | | | | | | [phone] | | | | | | | [...] [place] | | | | | | [address] | | | | | | [phone] | | | | | | | [...] | | | | | [place] [address] | | | | | | [phone] | | | | | | | | | | | | Azul Yeboah, | | | | | | [address] | | | | | | [place] | | | | | | [place] [address] | | | | | | [phone] | | | | | | | [...] | | | | | | [place] [address] | | | | | | [phone] | | | | | | | | +--------+ + + + + documented as of this encounter Visit Diagnoses + + | Diagnosis | + + | Sprain of left ankle, subsequent encounter - Primary | + + documented in this encounter
--- OUTSIDE RECORDS SUMMARY | ~2020-02-18 | XMS | Encounter Summary ---
Demographics + + + | Address | [address] | | | [place] [address] | + + + | Home Phone [...] | | | of left | [place] [address] | [place] [address] | | | | | ankle, | Phone: | Phone: | | | | | initial | [phone] | [phone] | | | | | encounter | Fax: | Fax: | | | | | Procedures | [phone] | [phone] | | | | | PT TREAT [...] [address] | [place] [address] | encounter (Primary | | | | [place], [place] | [phone] | Dx); Fall on same | | | | [address] | | level from slipping, | | | | [phone] | Julia Castillo | subsequent | | [...] might be differen t from the original. [facility] PT [address] [place] [address] Physical Therapy Daily Treatment Note Date: 10/09/2018 [...] | | | | | [place] [address] | | | | | | [phone] | | | | | | | [...] [address] | | | | | | [phone] | | | | | | | | | | | | Genesis Ayon OT | | +--------+ + + + + | 02/25/ | Office | Primary Care | Erika Ernst, | | | 2019 | Visit | | DO [address] | | | | | | [place] [address] | | | | | | [phone] | | | | | | | [...] | | | | | [place] [address] | | | | | | [phone] | | | | | | | | +--------+ + + + + | 02/27/ | Appointment | Radiology | Dhara, | | | 2019 | | | [address] | | | | | [address] [place], | | | | | | [place] [address] | | | | | | [phone] | | | | | | | | +--------+ + + + + | 03/04/ | Appointment | Rehabilitation | Genesis Ayon OT | | | 2019 | | | | | +--------+ + + + + | 03/09/ | Office | Orthopedic Surgery | Jeffrey Gandhi, | | | 2019 | Visit | | [address] | | | | | | [place] [address] | | | | | | [phone] | | | | | | | [...] [place] | | | | | | [address] | | | | | | [phone] | | | | | | | [...] | | | | | [place] [address] | | | | | | [phone] | | | | | | | | | | | | Azul Yeboah, | | | | | | [address] | | | | | | [place] | | | | | | [place] [address] | | | | | | [phone] | | | | | | | [...] | | | | | | [place] [address] | | | | | | [phone] | | | | | | | | +--------+ + + + + documented as of this encounter Visit Diagnoses + + | Diagnosis | + + | Sprain of left ankle, subsequent encounter - Primary | + + | Fall on same level from slipping, subsequent encounter | + + documented in this encounter"
--- OUTSIDE RECORDS SUMMARY | ~2020-02-18 | XMS | Encounter Summary ---
Demographics + + + | Address | [address] | | | [place] [address] | + + + | Home Phone [...] + +------+ + | Care Glass Sander Belt Name | Role | Phone | + +------+ + | Erika Ernst DO | PCP | | + +------+ + Reason for Visit + + + | Reason | Comments | + + + | Patient Education | | + + + Encounter Details +--------+ + + + + | Date | Type | Department | Care Team | Description | +--------+ + + + + | 01/06/ | Telephone | [facility] [facility] | Julia Fisher | Patient Education | | 2020 | | [facility] | M, PT | | | | | [address] | | | | | | [place] | | | | | | [address] | | | | | | [phone] | | | +--------+ + + + [...] | | | | | [place] [address] | | | | | | [phone] | | | | | | | [...] [address] | | | | | | [phone] | | | | | | | | | | | | Genesis Ayon OT | | +--------+ + + + + | 02/25/ | Office | Primary Care | Erika Ernst, | | | 2019 | Visit | | DO [address] | | | | | | [place] [address] | | | | | | [phone] | | | | | | | [...] | | | | | [place] [address] | | | | | | [phone] | | | | | | | | +--------+ + + + + | 02/27/ | Appointment | Radiology | Dhara, | | | 2019 | | | [address] | | | | | | 4TH [facility], | | | | | | [place] [address] | | | | | | [phone] | | | | | | | | +--------+ + + + + | 03/04/ | Appointment | Rehabilitation | Genesis Ayon OT | | | 2019 | | | | | +--------+ + + + + | 03/09/ | Office | Orthopedic Surgery | Oksana, Jeffrey G, | | | 2019 | Visit | | [address] [facility] | | | | | | [place] [address] | | | | | | [phone] | | | | | | | [...] [place] | | | | | | [address] | | | | | | [phone] | | | | | | | [...] | | | | | [place] [address] | | | | | | [phone] | | | | | | | | | | | | Azul Yeboah, | | | | | | MD [address] | | | | | | [place] | | | | | | [place] [address] | | | | | | [phone] | | | | | | | [...] | | | | | | [place] [address] | | | | | | [phone] | | | | | | | | +--------+ + + + + documented as of this encounter Visit Diagnoses Not on filedocumented in this encounter"
--- OUTSIDE RECORDS SUMMARY | ~2020-02-18 | XMS | Encounter Summary ---
Demographics + + + | Address | [address] | | | [place] [address] | + + + | Home Phone [...] Providers + +------+ + | Care Music Intern Name | Role | Phone | [...] [place] | | | | | [address] | [address] | | | | | [phone] | [phone] | | | | | | | [...] [address] | | | | | | [phone] | | | | | | | | | | | | Julia Fisher, | | | | | | PT | | +--------+ + + + + | 02/18/ | Appointment | Rehabilitation | Erika Ernst, | | | 2019 | | | DO [address] | | | | | | [place] [address] | | | | | | [phone] | | | | | | | | | | | | Genesis Ayon, OT | | +--------+ + + + + | 02/25/ | Office | Primary Care | Erika Ernst, | | | 2019 | Visit | | DO [address] | | | | | | [place] [address] | | | | | | [phone] | | | | | | | [...] | | | | | [place] [address] | | | | | | [phone] | | | | | | | | +--------+ + + + + | 02/27/ | Appointment | Radiology | Dhara, | | | 2019 | | | [address] | | | | | | 4TH [facility], | | | | | | [place] [address] | | | | | | [phone] | | | | | | | | +--------+ + + + + | 03/04/ | Appointment | Rehabilitation | Genesis Ayon OT | | | 2019 | | | | | +--------+ + + + + | 03/09/ | Office | Orthopedic Surgery | Jeffrey Gandhi, | | | 2019 | Visit | | [address] | | | | | | [place] [address] | | | | | | [phone] | | | | | | | [...] [place] | | | | | | [address] | | | | | | [phone] | | | | | | | [...] | | | | | [place] [address] | | | | | | [phone] | | | | | | | | | | | | Azul Yeboah, | | | | | | MD [address] | | | | | | [place] | | | | | | [place] [address] | | | | | | [phone] | | | | | | | [...] | | | | | | [place] [address] | | | | | | [phone] | | | | | | | | +--------+ + + + + documented as of this encounter Visit Diagnoses Not on filedocumented in this encounter"
--- OUTSIDE RECORDS SUMMARY | ~2020-02-18 | XMS | Encounter Summary ---
Demographics + + + | Address | [address] | | | [place] [address] | + + + | Home Phone [...] Team Providers + +------+ + | Care Finish Rolls Operator Name | Role | Phone | [...] | | | of left | [place] [address] | [place] [address] | | | | | ankle, | Phone: | Phone: | | | | | initial | [phone] | [phone] | | | | | encounter | Fax: | Fax: | | | | | Procedures | [phone] | [phone] | | | | | PT EVAL [...] [address] | [place] [address] | ligament of left | | | | [place], [place] | [phone] | ankle, initial | | | | [address] | | encounter | | | | [phone] | Leila Maldonado, PT | | +--------+ [...] be different fr om the original. [facility] PT [address] [place] [address] Physical Therapy Daily Treatment Note Date: 07/24/2018 [...] in favor of SL heel raise with QUALITY COMPLIANCE CONSULTANT. ONGOING: SLS on even surface 3x30 seconds [...] 2: NMR: SL stance on bosu with QUALITY COMPLIANCE CONSULTANT 3x15 sec. SL stance on ground no QUALITY COMPLIANCE CONSULTANT 3x2 0 sec. Step ups to foam [...] | | | | | [place] [address] | | | | | | [phone] | | | | | | | | | | | | Julia Fisher, | | | | | | PT | | +--------+ + + + + | 02/18/ | Appointment | Rehabilitation | Erika Ernst, | | | 2019 | | | DO [address] | | | | | | [place] [address] | | | | | | [phone] | | | | | | | | | | | | Genesis Ayon OT | | +--------+ + + + + | 02/25/ | Office | Primary Care | Erika Ernst, | | | 2019 | Visit | | DO [address] | | | | | | [place] [address] | | | | | | [phone] | | | | | | | [...] | | | | | [place] [address] | | | | | | [phone] | | | | | | | | +--------+ + + + + | 02/27/ | Appointment | Radiology | Dhara, | | | 2019 | | | [address] | | | | | [address] [place], | | | | | | [place] [address] | | | | | | [phone] | | | | | | | | +--------+ + + + + | 03/04/ | Appointment | Rehabilitation | Genesis Ayon OT | | | 2019 | | | | | +--------+ + + + + | 03/09/ | Office | Orthopedic Surgery | Jeffrey Gandhi, | | 2019 | Visit | | [place] [address] | | | | | | [place] [address] | | | | | | [phone] | | | | | | | [...] [place] | | | | | | [address] | | | | | | [phone] | | | | | | | [...] | | | | | [place] [address] | | | | | | [phone] | | | | | | | | | | | | Azul Yeboah, | | | | | | MD [address] | | | | | | [place] | | | | | | [place] [address] | | | | | | [phone] | | | | | | | [...] | | | | | | [place] [address] | | | | | | [phone] | | | | | | | | +--------+ + + + + documented as of this encounter Visit Diagnoses + + | Diagnosis | + + | Sprain of calcaneofibular ligament of left ankle, initial encounter | + + documented in this encounter
--- OUTSIDE RECORDS SUMMARY | ~2020-02-18 | XMS | Encounter Summary ---
Demographics + + + | Address | [address] | | | [place] [address] | + + + | Home Phone [...] Providers + +------+ + | Care Road Repairer Name | Role | Phone | + +------+ + PCP | Unavailable | + +------+ + Encounter Details +--------+ + + + + | Date | Type | Department | Care Team | Description | +--------+ + + + + | 12/27/ | [facility] [place] [facility] | Denise Mcgregor | | | 2017 | Encounter | [facility] | G, [address]S RUNNER | | | | | [facility] [address] | | | | | | [address] [facility] [place], | | | | | | [place] [address] | | | | | | [phone] | | | +--------+ + + + [...] | | | | | [place] [address] | | | | | | [phone] | | | | | | | | | | | | Julia Fisher, | | | | | | PT | | +--------+ + + + + | 02/18/ | Appointment | Rehabilitation | Erika Ernst, | | | 2019 | | | DO [address] | | | | | | [place] [address] | | | | | | [phone] | | | | | | | | | | | | Genesis Ayon OT | | +--------+ + + + + | 02/25/ | Office | Primary Care | Erika Ernst, | | | 2019 | Visit | | [address] [place] [address] | | | | | | [place] [address] | | | | | | [phone] | | | | | | | [...] | | | | | [place] [address] | | | | | | [phone] | | | | | | | | +--------+ + + + + | 02/27/ | Appointment | Radiology | Dhara, | | | 2019 | | | [address] | | | | | | [address] [place], | | | | | | [place] [address] | | | | | | [phone] | | | | | | | | +--------+ + + + + | 03/04/ | Appointment | Rehabilitation | Genesis Ayon OT | | 2019 | | | | | +--------+ + + + + | 03/09/ | Office | Orthopedic Surgery | Jeffrey Gandhi, | | | 2019 | Visit | | MD [address] [facility] | | | | | | [place] [address] | | | | | | [phone] | | | | | | | [...] [place] | | | | | | [address] | | | | | | [phone] | | | | | | | [...] | | | | | [place] [address] | | | | | | [phone] | | | | | | | | | | | | Azul Yeboah, | | | | | | [address] | | | | | | [place] | | | | | | [place] [address] | | | | | | [phone] | | | | | | | [...] | | | | | | [place] [address] | | | | | | [phone] | | | | | | | | +--------+ + + + + documented as of this encounter Visit Diagnoses Not on filedocumented in this encounter"
--- OUTSIDE RECORDS SUMMARY | ~2020-02-18 | XMS | Encounter Summary ---
Demographics + + + | Address | [address] | | | [place] [address] | + + + | Home Phone [...] Providers + +------+ + | Care Photo Retoucher Name | Role | Phone | + [...] | [facility] | [place] [address] | | | | | [address] [place], | [phone] | | | | | [place] [address] | | | | | | [phone] | | | +--------+ + + + [...] 2019 | | | DO [address] | | | | | | [place] [address] | | | | | | [phone] | | | | | | | | | | | | Julia Fisher, | | | | | | PT | | +--------+ + + + + | 02/18/ | Appointment | Rehabilitation | Erika Ernst, | | | 2019 | | | DO [address] | | | | | | [place] [address] | | | | | | [phone] | | | | | | | | | | | | Genesis Ayon OT | | +--------+ + + + + | 02/25/ | Office | Primary Care | Erika Ernst, | | | 2019 | Visit | | DO [address] | | | | | | [place] [address] | | | | | | [phone] | | | | | | | [...] | | | | | [place] [address] | | | | | | [phone] | | | | | | | | +--------+ + + + + | 02/27/ | Appointment | Radiology | Dhara, | | | 2019 | | | [address] | | | | | | [facility]TH [facility], | | | | | | [place] [address] | | | | | | [phone] | | | | | | | | +--------+ + + + + | 03/04/ | Appointment | Rehabilitation | Genesis Ayon OT | | | 2019 | | | | | +--------+ + + + + | 03/09/ | Office | Orthopedic Surgery | Jeffrey Gandhi, | | | 2019 | Visit | | [address] | | | | | | [place] [address] | | | | | | [phone] | | | | | | | [...] [place] | | | | | | [address] | | | | | | [phone] | | | | | | | [...] | | | | | [place] [address] | | | | | | [phone] | | | | | | | | | | | | Azul Yeboah, | | | | | | MD [address] | | | | | | [place] | | | | | | [place] [address] | | | | | | [phone] | | | | | | | [...] | | | | | | [place] [address] | | | | | | [phone] | | | | | | | | +--------+ + + + + documented as of this encounter Visit Diagnoses Not on filedocumented in this encounter"
--- OUTSIDE RECORDS SUMMARY | ~2020-02-18 | XMS | Encounter Summary ---
Demographics + + + | Address | [address] | | | [place] [address] | + + + | Home Phone [...] Providers + +------+ + | Care Computer Forwarding System Markup Clerk Name | Role | Phone | [...] Refill | | 2019 | | [facility] | DO [address] | | | | | [facility] [address] | [place] [address] | | | | | [address] [place], | [phone] | | | | | [place] [address] | | | | | | [phone] | | | +--------+--------+ + + + [...] | | | | | [place] [address] | | | | | | [phone] | | | | | | | | | | | | Julia Fisher, | | | | | | PT | | +--------+ + + + + | 02/18/ | Appointment | Rehabilitation | Erika Ernst, | | | 2019 | | | DO [address] | | | | | | [place] [address] | | | | | | [phone] | | | | | | | | | | | | Genesis Ayon OT | | +--------+ + + + + | 02/25/ | Office | Primary Care | Erika Ernst, | | | 2019 | Visit | | DO [address] | | | | | | [place] [address] | | | | | | [phone] | | | | | | | [...] | | | | | [place] [id number] | | | | | | [phone] | | | | | | | | +--------+ + + + + | 02/27/ | Appointment | Radiology | Dhara, | | | 2019 | | | [address] | | | | | | 4TH [facility], | | | | | | [place] [address] | | | | | | [phone] | | | | | | | [...] | | | | | | [place] [address] | | | | | | [phone] | | | | | | | [...] [place] | | | | | | [address] | | | | | | [phone] | | | | | | | [...] | | | | | [place] [address] | | | | | | [phone] | | | | | | | | | | | | Azul Yeboah, | | | | | | MD [address] | | | | | | [place] | | | | | | [place] [address] | | | | | | [phone] | | | | | | | [...] | | | | | | [place] [address] | | | | | | [phone] | | | | | | | | +--------+ + + + + documented as of this encounter Visit Diagnoses Not on filedocumented in this encounter"
--- OUTSIDE RECORDS SUMMARY | ~2020-02-18 | XMS | Encounter Summary ---
Demographics + + + | Address | [address] | | | [place] [address] | + + + | Home Phone [...] Team Providers + +------+ + | Care Diaper Folder Name | Role | Phone | [...] | [facility] [address] | [place] [address] | | | | | [address] [place], | [phone] | | | | | [place] [address] | | | | | | [phone] | | | +--------+ + + + [...] | | | | | [place] [address] | | | | | | [phone] | | | | | | | | | | | | Julia Fisher, | | | | | | PT | | +--------+ + + + + | 02/18/ | Appointment | Rehabilitation | Erika Ernst, | | | 2019 | | | DO [address] | | | | | | [place] [address] | | | | | | [phone] | | | | | | | | | | | | Genesis Ayon OT | | +--------+ + + + + | 02/25/ | Office | Primary Care | Erika Ernst, | | | 2019 | Visit | | DO [address] | | | | | | [place] [address] | | | | | | [phone] | | | | | | | [...] | | | | | [place] [address] | | | | | | [phone] | | | | | | | | +--------+ + + + + | 02/27/ | Appointment | Radiology | Dhara, | | | 2019 | | | [address] | | | | | | 4TH [facility], | | | | | | [place] [address] | | | | | | [phone] | | | | | | | | +--------+ + + + + | 03/04/ | Appointment | Rehabilitation | Genesis Ayon OT | | | 2019 | | | | | +--------+ + + + + | 03/09/ | Office | Orthopedic Surgery | Jeffrey Gandhi, | | | 2019 | Visit | | [address] | | | | | | [place] [address] | | | | | | [phone] | | | | | | | [...] [place] | | | | | | [address] | | | | | | [phone] | | | | | | | [...] | | | | | [place] [address] | | | | | | [phone] | | | | | | | | | | | | Azul Yeboah, | | | | | | [address] | | | | | | [place] | | | | | | [place] [address] | | | | | | [phone] | | | | | | | [...] | | | | | | [place] [address] | | | | | | [phone] | | | | | | | | +--------+ + + + + documented as of this encounter Visit Diagnoses Not on filedocumented in this encounter"
--- OUTSIDE RECORDS SUMMARY | ~2020-02-18 | XMS | Encounter Summary ---
Demographics + + + | Address | [address] | | | [place] [address] | + + + | Home Phone [...] Team Providers + +------+ + | Care Heat Seal Operator Name | Role | Phone | [...] | | | | severe | [place] [address] | [place], [place] | | | | | obesity due | Phone: | [phone] | | | | | to excess | [phone] | Phone: | | | | | calories | Fax: | [phone] | | | | | without | [phone] | Fax: | | | | | serious | | [phone] | | | | | comorbidity | [...] | | | | | [facility]UTR | | | | | | | THER, 1ST, | | | | | | | INDIV, EA 15 | | | | | | | MIN [facility] | | | | | [...] | SERVICES [address] | [place] [address] | 3 severe obesity due | | | | DR [place], [place] | [phone] | to excess calories | | | | [address] | | without serious | | | | [phone] | Janel Webster, | comorbidity with | [...] | | | | | [place] [address] | | | | | | [phone] | | | | | | | | | | | | Julia Fisher, | | | | | | PT | | +--------+ + + + + | 02/18/ | Appointment | Rehabilitation | Erika Ernst, | | | 2019 | | | DO [address] [place] | | | | | | [place] [address] | | | | | | [phone] | | | | | | | | | | | | [facility] | | +--------+ + + + + | 02/25/ | Office | Primary Care | Erika Ernst, | | | 2019 | Visit | | DO [address] [place] [address] | | | | | | [place] [address] | | | | | | [phone] | | | | | | | [...] | | | | | [place] [address] | | | | | | [phone] | | | | | | | | +--------+ + + + + | 02/27/ | Appointment | Radiology | Dhara, | | | 2019 | | | DWAINE Ross [address] | | [address] [place], | | | | | | [place] [address] | | | | | | [phone] | | | | | | | [...] ST | | | | | | [place] [address] | | | | | | [phone] | | | | | | | [...] [place] | | | | | | [address] | | | | | | [phone] | | | | | | | [...] | | | | | [place] [address] | | | | | | [phone] | | | | | | | | | | | | Azul Yeboah, | | | | | | [address] | | | | | | [place] | | | | | | [place] [address] | | | | | | [phone] | | | | | | | [...] | | | | | | [place] [address] | | | | | | [phone] | | | | | | | [...]
--- OUTSIDE RECORDS SUMMARY | ~2020-02-18 | XMS | Encounter Summary ---
Demographics + + + | Address | [address] | | | [place] [address] | + + + | Home Phone [...] Providers + +------+ + | Care Meat Stringer Name | Role | Phone | [...] [place] | | | | | | [address] | | | | | | [phone] | | | +--------+ + + + [...] | | | | | [place] [address] | | | | | | [phone] | | | | | | | | | | | | Julia Fisher, | | | | | | PT | | +--------+ + + + + | 02/18/ | Appointment | Rehabilitation | Erika Ernst, | | | 2019 | | | DO [address] [place] | | | | | | [place] [address] | | | | | | [phone] | | | | | | | | | | | | [facility] | | +--------+ + + + + | 02/25/ | Office | Primary Care | Erika Ernst, | | | 2019 | Visit | | DO [address] [place] | | | | | | [place] [address] | | | | | | [phone] | | | | | | | [...] | | | | | [place] [address] | | | | | | [phone] | | | | | | | | +--------+ + + + + | 02/27/ | Appointment | Radiology | Dhara, | | | 2019 | | | [address] | | | | | | 4TH [facility], | | | | | | [place] [address] | | | | | | [phone] | | | | | | | [...] | | | | | [place] [address] | | | | | | [phone] | | | | | | | [...] [place] | | | | | | [address] | | | | | | [phone] | | | | | | | [...] | | | | | [place] [address] | | | | | | [phone] | | | | | | | | | | | | Azul Yeboah, | | | | | | MD [address] | | | | | | [place] | | | | | | [place] [address] | | | | | | [phone] | | | | | | | [...] | | | | | | [place] [address] | | | | | | [phone] | | | | | | | | +--------+ + + + + documented as of this encounter Visit Diagnoses Not on filedocumented in this encounter"
--- OUTSIDE RECORDS SUMMARY | ~2020-02-18 | XMS | Encounter Summary ---
Demographics + + + | Address | [address] | | | [place] [address] | + + + | Home Phone [...] Providers + +------+ + | Care Logistics Administrator Name | Role | Phone | [...] | [facility] [address] | [place] [address] | | | | [address] [place], | [phone] | | | | | [place] [address] | | | | | | [phone] | | | +--------+ + + + [...] | | | | | [place] [address] | | | | | | [phone] | | | | | | | | | | | | Julia Fisher, | | | | | | PT | | +--------+ + + + + | 02/18/ | Appointment | Rehabilitation | Erika Ernst, | | | 2019 | | | DO [address] [place] | | | | | | [place] [address] | | | | | | [phone] | | | | | | | | | | | | [facility] | | +--------+ + + + + | 02/25/ | Office | Primary Care | Erika Ernst, | | | 2019 | Visit | | DO [address] | | | | | | [place] [address] | | | | | | [phone] | | | | | | | [...] | | | | | [place] [address] | | | | | | [phone] | | | | | | | | +--------+ + + + + | 02/27/ | Appointment | Radiology | Dhara, | | 2019 | | | [address] | | | | | | 4TH [facility], | | | | | | [place] [address] | | | | | | [phone] | | | | | | | | +--------+ + + + + | 03/04/ | Appointment | Rehabilitation | [facility] | | | 2019 | | | | | +--------+ + + + + | 03/09/ | Office | Orthopedic Surgery | Jeffrey Gandhi, | | | 2019 | Visit | | MD [address] [facility] | | | | | | [place] [address] | | | | | | [phone] | | | | | | | [...] [place] | | | | | | [address] | | | | | | [phone] | | | | | | | [...] | | | | | [place] [address] | | | | | | [phone] | | | | | | | | | | | | Azul Yeboah, | | | | | | MD [address] | | | | | | [place] | | | | | | [place] [address] | | | | | | [phone] | | | | | | | [...] | | | | | | [place] [address] | | | | | | [phone] | | | | | | | | +--------+ + + + + documented as of this encounter Visit Diagnoses Not on filedocumented in this encounter"
--- OUTSIDE RECORDS SUMMARY | ~2020-02-18 | XMS | Encounter Summary ---
Demographics + + + | Address | [address] | | | [place] [address] | + + + | Home Phone [...] Team Providers + +------+ + | Care Eyelet Cutter Name | Role | Phone | + +------+ + PCP | Unavailable | + +------+ + Encounter Details +--------+ + + + + | Date | Type | Department | Care Team | Description | +--------+ + + + + | 02/23/ | [facility] | Erika Ernst, | | | 2016 | Encounter | [facility] | DO [address] | | | | | MEDICAL CLIN[facility] [address] | [place] [address] | | | | | [address] [place], | [phone] | | | | | [place] [address] | | | | | | [phone] | | | +--------+ + + + [...] | | | | | [place] [address] | | | | | | [phone] | | | | | | | | | | | | Julia Fisher, | | | | | | PT | | +--------+ + + + + | 02/18/ | Appointment | Rehabilitation | Erika Ernst, | | | 2019 | | | DO [address] [place] | | | | | | [place] [address] | | | | | | [phone] | | | | | | | | | | | | [facility] | | +--------+ + + + + | 02/25/ | Office | Primary Care | Erika Ernst, | | | 2019 | Visit | | DO [address] [place] | | | | | | [place] [address] | | | | | | [phone] | | | | | | | [...] | | | | | [place] [address] | | | | | | [phone] | | | | | | | | +--------+ + + + + | 02/27/ | Appointment | Radiology | Dhara, | | | 2019 | | | [address] | | | | | | [facility] | | | | | | [place] [address] | | | | | | [phone] | | | | | | | [...] [place]ORE | | | | | | [place] [address] | | | | | | [phone] | | | | | | | [...] [place] | | | | | | [address] | | | | | | [phone] | | | | | | | [...] | | | | | [place] [address] | | | | | | [phone] | | | | | | | | | | | | Azul Yeboah, | | | | | | MD [address] | | | | | | [place] | | | | | | [place] [address] | | | | | | [phone] | | | | | | | [...] | | | | | | [place] [address] | | | | | | [phone] | | | | | | | | +--------+ + + + + documented as of this encounter Visit Diagnoses Not on filedocumented in this encounter"
--- OUTSIDE RECORDS SUMMARY | ~2020-02-18 | XMS | Encounter Summary ---
Demographics + + + | Address | [address] | | | [place] [address] | + + + | Home Phone [...] Providers + +------+ + | Care Product Marketing Programs Manager Name | Role | Phone [...] | | | | s (de | [place], [place] | [place] [address] | | | | | quervain) | [address] | Phone: | | | | | Pain in | Phone: | [phone] | | | | | right wrist | [phone] | Fax: | | | | | Procedures | Fax: | [phone] | | | | | OT TREAT | [phone] | | +--------+--------+ + + + + [...] | | [address] [place] | [place] [address] | (Primary Dx); Right | | | | [place], [place] | [phone] | wrist pain | | | | [address] | | | | | | [phone] | Michela Azevedo, | | | | [...] | 11/26/19 | | | (VITAMIN D3) 39748 | mouth Once a week | tablet [...] might be different f rom the original. [facility] [place] [address] [place] [address] Occupational Therapy Daily Treatment Note Date: 12/19/2018 [...] period and is compliant with wrist and behavior interventionist strengthening exercises. She does still hav e deficits in behavior interventionist strength and wrist stability as well as pain with daily activities. Her j ob description may be changing which would decrease the physical demands of her work, making it more appropriate for her current status. She continues to benefit from Calculus Professor apy to maximize her behavior interventionist strength and wrist stability following this injury and return her t o prior level of function. 10/30/2018 - REASON FOR RE-CERTIFICATION: Andrea has received 12 Occupational Therapy treatme nts since 08/07/2018 following her right wrist surgery. She has regained full AROM of the rig ht wrist but continues to have right wrist, behavior interventionist and pinch weakness and significant pain (3- [...] in 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, and behavior interventionist and pinch weakness in the right hand [...] | | | | | [place], [place] [address] | | | | | | [phone] | | | | | | | | | | | | Julia Fisher, | | | | | | PT | | +--------+ + + + + | 02/18/ | Appointment | Rehabilitation | Erika Ernst, | | | 2019 | | | DO [address] [place] | | | | | | [place] [address] | | | | | | [phone] | | | | | | | | | | | | [facility] | | +--------+ + + + + | 02/25/ | Office | Primary Care | Erika Ernst, | | | 2019 | Visit | | DO [address] [place] | | | | | | [place] [address] | | | | | | [phone] | | | | | | | [...] | | | | | [place] [address] | | | | | | [phone] | | | | | | | | +--------+ + + + + | 02/27/ | Appointment | Radiology | Dhara, | | | 2019 | | | [address] | | | | | | 4TH [facility], | | | | | | [place] [address] | | | | | | [phone] | | | | | | | [...] | | | | | [place] [address] | | | | | | [phone] | | | | | | | [...] [place] | | | | | | [address] | | | | | | [phone] | | | | | | | [...] | | | | | [place] [address] | | | | | | [phone] | | | | | | | | | | | | Azul Yeboah, | | | | | | MD [address] | | | | | | [place] | | | | | | [place] [address] | | | | | | [phone] | | | | | | | [...] | | | | | | [place] [address] | | | | | | [phone] | | | | | | | | +--------+ + + + + documented as of this encounter Visit Diagnoses + + | Diagnosis | + + | Radial styloid tenosynovitis - Primary | + + | Right wrist pain Pain in joint, forearm | + + documented in this encounter"
--- OUTSIDE RECORDS SUMMARY | ~2020-02-18 | XMS | Encounter Summary ---
Demographics + + + | Address | [address] | | | [place] [address] | + + + | Home Phone [...] Team Providers + +------+ + | Care Extra Hand Name | Role | Phone | [...] | | | [place], [place] | [address] | | | | | [address] | | | | | | [phone] | | | +--------+ + + + [...] | | | DO [address] [place] | | | | | | [place] [address] | | | | | | [phone] | | | | | | | | | | | | Julia Fisher, | | | | | | PT | | +--------+ + + + + | 02/18/ | Appointment | Rehabilitation | Erika Ernst, | | | 2019 | | | DO [address] [place] | | | | | | [place] [address] | | | | | | [phone] | | | | | | | | | | | | [facility] | | +--------+ + + + + | 02/25/ | Office | Primary Care | Erika Ernst, | | | 2019 | Visit | | DO [address] [place] | | | | | | [place] [address] | | | | | | [phone] | | | | | | | [...] | | | | | [place] [address] | | | | | | [phone] | | | | | | | | +--------+ + + + + | 02/27/ | Appointment | Radiology | Dhara, | | | 2019 | | | [address] | | | | | | 4TH [facility], | | | | | | [place] [address] | | | | | | [phone] | | | | | | | [...] | | | | | [place] [address] | | | | | | [phone] | | | | | | | [...] [place] | | | | | | [address] | | | | | | [phone] | | | | | | | [...] | | | | | [place] [address] | | | | | | [phone] | | | | | | | | | | | | Azul Yeboah, | | | | | | MD [address] | | | | | | [place] | | | | | | [place] [address] | | | | | | [phone] | | | | | | | [...] | | | | | | [place] [address] | | | | | | [phone] | | | | | | | | +--------+ + + + + documented as of this encounter Visit Diagnoses Not on filedocumented in this encounter"
--- OUTSIDE RECORDS SUMMARY | ~2020-02-18 | XMS | Encounter Summary ---
Demographics + + + | Address | [address] | | | [place] [address] | + + + | Home Phone [...] Team Providers + +------+ + | Care Windows Technical Specialist Name | Role | Phone | + +------+ + PCP | Unavailable | + +------+ + Encounter Details +--------+ + + + + | Date | Type | Department | Care Team | Description | +--------+ + + + + | 04/26/ | [facility] | Spenser Roberts NP | | | 2015 | Encounter | [facility] | [address], | | | | | MEDICAL CLIN[facility] [address] | [place] [address] | | | | | 4TH [facility], | [phone] | | | | | [place] [address] | | | | | | [phone] | | | +--------+ + + + [...] | | | | | [place] [address] | | | | | | [phone] | | | | | | | | | | | | Julia Fisher, | | | | | | PT | | +--------+ + + + + | 02/18/ | Appointment | Rehabilitation | Erika Ernst, | | | 2019 | | | DO [address] [place] | | | | | | [place] [address] | | | | | | [phone] | | | | | | | | | | | | [facility] | | +--------+ + + + + | 02/25/ | Office | Primary Care | Erika Ernst, | | | 2019 | Visit | | DO [address] [place] | | | | | | [place] [address] | | | | | | [phone] | | | | | | | [...] | | | | | [place] [address] | | | | | | [phone] | | | | | | | | +--------+ + + + + | 02/27/ | Appointment | Radiology | Dhara, | | | 2019 | | | [address] | | | | | | 4TH [facility], | | | | | | [place] [address] | | | | | | [phone] | | | | | | | | +--------+ + + + + | 03/04/ | Appointment | Rehabilitation | [facility] OT | | | 2019 | | | | | +--------+ + + + + | 03/09/ | Office | Orthopedic Surgery | Jeffrey Gandhi, | | 2019 | Visit | | [address] | | | | | | [place] [address] | | | | | | [phone] | | | | | | | [...] [place] | | | | | | [address] | | | | | | [phone] | | | | | | | [...] | | | | | [place] [address] | | | | | | [phone] | | | | | | | | | | | | Azul Yeboah, | | | | | | MD [address] | | | | | | [place] | | | | | | [place] [address] | | | | | | [phone] | | | | | | | [...] | | | | | | [place] [address] | | | | | | [phone] | | | | | | | | +--------+ + + + + documented as of this encounter Visit Diagnoses Not on filedocumented in this encounter"
--- OUTSIDE RECORDS SUMMARY | ~2020-02-18 | XMS | Encounter Summary ---
Demographics + + + | Address | [address] | | | [place] [address] | + + + | Home Phone [...] Providers + +------+ + | Care Store Keeper Name | Role | Phone | + [...] + + + + | 02/10/ | Telephone | [place] [facility] | Erika Ernst, | Referral | | 2020 | | [facility] | DO [address] | | | | | MEDICAL CLIN[facility] [address] | [place] [address] | | | | | [address] [place], | [phone] | | | | | [place] [address] | | | | | | [phone] | | | +--------+ + + + [...] | | | | | [place] [address] | | | | | | [phone] | | | | | | | | | | | | Julia Fisher, | | | | | | PT | | +--------+ + + + + | 02/18/ | Appointment | Rehabilitation | Erika Ernst, | | | 2019 | | | DO [address] [place] | | | | | | [place] [address] | | | | | | [phone] | | | | | | | | | | | | [facility] | | +--------+ + + + + | 02/25/ | Office | Primary Care | Erika Ernst, | | | 2019 | Visit | | DO [address] [place] | | | | | | [place] [address] | | | | | | [phone] | | | | | | | [...] | | | | | [place] [address] | | | | | | [phone] | | | | | | | | +--------+ + + + + | 02/27/ | Appointment | Radiology | Dhara, | | | 2019 | | | [address] | | | | | | 4TH [facility], | | | | | | [place] [address] | | | | | | [phone] | | | | | | | | +--------+ + + + + | 03/04/ | Appointment | Rehabilitation | [facility] | | | 2019 | | | | | +--------+ + + + + | 03/09/ | Office | Orthopedic Surgery | Jeffrey Gandhi, | | | 2019 | Visit | | [address] | | | | | | [place] [address] | | | | | | [phone] | | | | | | | [...] [place] | | | | | | [address] | | | | | | [phone] | | | | | | | [...] | | | | | [place] [address] | | | | | | [phone] | | | | | | | | | | | | Azul Yeboah, | | | | | | [address] | | | | | | [place] | | | | | | [place] [address] | | | | | | [phone] | | | | | | | [...] [address] | | | | | | [phone] | | | | | | | | +--------+ + + + + documented as of this encounter Visit Diagnoses Not on filedocumented in this encounter"
--- OUTSIDE RECORDS SUMMARY | ~2020-02-18 | XMS | Encounter Summary ---
Demographics + + + | Address | [address] | | | [place] [address] | + + + | Home Phone [...] Team Providers + +------+ + | Care County Surveyor Name | Role | Phone | + [...] right | | 2019 | Visit | [facility] | DO [address] | ankle, unspecified | | | | [facility] [address] | [place] [address] | ligament, initial | | | | [address] [place], | [phone] | encounter (Primary | | | | [place] [address] | | Dx); Contusion of | | | | [phone] | Camille Bush, DWAINE | right knee, initial | | | | | [address] | encounter | | | | | [place] [address] | | | | | | [phone] | | | | | | | [...] don t get better. Date Last Reviewed: 12/31/201619999676-3400 [employer]. [address] [place] [address], [place] [address]. All [facility] ts reserved. This information is not [...] until the sp rain heals. Prescription or mfjk-ldo-uuvmryi pain medicines. These help reduce swelling and [...] get worse New symptoms Date Last Reviewed: 12/10/201519992994-0106 [employer]. [address] [place] [address], [place] [address]. All righ ts reserved. This information is [...] having falling last night at 10pm at [facility] floor where she slipped an d landed [...] - Elastic Bandages & Supports (ANKLE BRACE [id number]) MISC; 1 Units by Does not apply [...] worsen ing., With your PCP. CAITIE [email or web address] [facility] documented in this en counter Plan of Treatment +--------+ + + + + | Date | Type | Specialty | Care Team | Description | +--------+ + + + + | 02/18/ | Appointment | Rehabilitation | Erika Ernst, | | | 2019 | | | DO [address] [place] | | | | | | [place] [address] | | | | | | [phone] | | | | | | | | | | | | Julia Fisher, | | | | | | PT | | +--------+ + + + + | 02/18/ | Appointment | Rehabilitation | Erika Ernst, | | | 2019 | | | DO [address] [place] | | | | | | [place] [address] | | | | | | [phone] | | | | | | | | | | | | [facility] | | +--------+ + + + + | 02/25/ | Office | Primary Care | Erika Ernst, | | | 2019 | Visit | | DO [address] [place] | | | | | | [place] [address] | | | | | | [phone] | | | | | | | [...] | | | | | [place] [address] | | | | | | [phone] | | | | | | | | +--------+ + + + + | 02/27/ | Appointment | Radiology | Dhara, | | | 2019 | | | [address] | | | | | | [address] [facility], | | | | | | [place] [address] | | | | | | [phone] | | | | | | | [...] | | | | | [place] [address] | | | | | | [phone] | | | | | | | [...] [place] | | | | | | [address] | | | | | | [phone] | | | | | | | [...] | | | | | [place] [address] | | | | | | [phone] | | | | | | | | | | | | Azul Yeboah, | | | | | | MD [address] | | | | | | [place] | | | | | | [place] [address] | | | | | | [phone] | | | | | | | [...] | | | | | | [place] [address] | | | | | | [phone] | | | | | | | [...]
--- OUTSIDE RECORDS SUMMARY | ~2020-02-18 | XMS | Encounter Summary ---
Demographics + + + | Address | [address] | | | [place] [address] | + + + | Home Phone [...] Providers + +------+ + | Care Supervisor Stave Finishing Name | Role | Phone | + +------+ + | Erika Ernst DO | PCP | | + +------+ + Reason for Visit +--------+ + | Reason | Comments | +--------+ + | Other | FU from ED in [place] | +--------+ + Encounter Details +--------+ + + + + | Date | Type | Department | Care Team | Description | +--------+ + + + + | 08/16/ | Telephone | [place] [facility] | Inocencio Noriega | Other (FU from ED in | | 2018 | | [facility] | MD [address] | [place]) | | | | [address] | [address] | | | | | [place] | [place] [address] | | | | | [address] | [phone] | | | | | [phone] | | | +--------+ + + + [...] | | | | | [place] [address] | | | | | | [phone] | | | | | | | | | | | | Julia Fisher, | | | | | | PT | | +--------+ + + + + | 02/18/ | Appointment | Rehabilitation | Erika Ernst, | | | 2019 | | | DO [address] [place] | | | | | | [place] [address] | | | | | | [phone] | | | | | | | | | | | | Genesis Ayon, OT | | +--------+ + + + + | 02/25/ | Office | Primary Care | Erika Ernst, | | | 2019 | Visit | | DO [address] [place] | | | | | | [place] [address] | | | | | | [phone] | | | | | | | [...] | | | | | [place] [address] | | | | | | [phone] | | | | | | | | +--------+ + + + + | 02/27/ | Appointment | Radiology | Dhara, | | | 2019 | | | [address] | | | | | | 4TH [facility], | | | | | | [place] [address] | | | | | | [phone] | | | | | | | | +--------+ + + + + | 03/04/ | Appointment | Rehabilitation | [facility] OT | | | 2019 | | | | | +--------+ + + + + | 03/09/ | Office | Orthopedic Surgery | Jeffrey Gandhi, | | | 2019 | Visit | | [address] [facility] | | | | | | [place] [address] | | | | | | [phone] | | | | | | | [...] [place] | | | | | | [address] | | | | | | [phone] | | | | | | | [...] | | | | | [place] [address] | | | | | | [phone] | | | | | | | | | | | | Azul Yeboah, | | | | | | MD [address] | | | | | | [place] | | | | | | [place] [address] | | | | | | [phone] | | | | | | | [...] [address] | | | | | | [phone] | | | | | | | | +--------+ + + + + documented as of this encounter Visit Diagnoses Not on filedocumented in this encounter"
--- OUTSIDE RECORDS SUMMARY | ~2020-02-18 | XMS | Encounter Summary ---
Demographics + + + | Address | [address] | | | [place] [address] | + + + | Home Phone [...] Providers + +------+ + | Care Community Service Patrol Officer Name | Role | Phone | + +------+ + | Erika Ernst DO | PCP | | + +------+ + Reason for Visit + + + | Reason | Comments | + + + | MRI Recommendation | | + + + Encounter Details +--------+ + + + + | Date | Type | Department | Care Team | Description | +--------+ + + + + | 02/10/ | Telephone | [place] [facility] | Dhara, | MRI Recommendation | | 2020 | | [facility] | Cody, SWINE NUTRITIONIST [address] | | | | | CL[address] [place], | | | | | [address] [place], | [place] [address] | | | | | [place] [address] | [phone] | | | | | [phone] | | | +--------+ + + + [...] | | | | | [place] [address] | | | | | | [phone] | | | | | | | | | | | | Julia Fisher, | | | | | | PT | | +--------+ + + + + | 02/18/ | Appointment | Rehabilitation | Erika Ernst, | | | 2019 | | | DO [address] [place] | | | | | | [place] [address] | | | | | | [phone] | | | | | | | | | | | | [facility] | | +--------+ + + + + | 02/25/ | Office | Primary Care | Erika Ernst, | | | 2019 | Visit | | DO [address] [place] | | | | | | [place] [address] | | | | | | [phone] | | | | | | | [...] | | | | | [place] [address] | | | | | | [phone] | | | | | | | | +--------+ + + + + | 02/27/ | Appointment | Radiology | Dhara, | | | 2019 | | | DWAINE [address] | | | | | | [address] [facility], | | | | | | [place] [address] | | | | | | [phone] | | | | | | | [...] [place] | | | | | | [place] [address] | | | | | | [phone] | | | | | | | [...] [place] | | | | | | [address] | | | | | | [phone] | | | | | | | [...] | | | | | [place] [address] | | | | | | [phone] | | | | | | | | | | | | Azul Yeboah, | | | | | | MD [address] | | | | | | [address] [place] | | | | | | [place] [address] | | | | | | [phone] | | | | | | | [...] | | | | | | [place] [address] | | | | | | [phone] | | | | | | | | +--------+ + + + + documented as of this encounter Visit Diagnoses Not on filedocumented in this encounter"
--- OUTSIDE RECORDS SUMMARY | ~2020-02-18 | XMS | Encounter Summary ---
Demographics + + + | Address | [address] | | | [place] [address] | + + + | Home Phone [...] Providers + +------+ + | Care Crm Solution Architect Name | Role | Phone | [...] Refill | | 2018 | | [facility] | [address] | | | | | MEDICAL CL[facility] [address] | [facility] [place] [address] | | | | | [address] [place], | [phone] | | | | | [place] [address] | | | | | | [phone] | | | +--------+ + + + [...] | | | | | [place] [address] | | | | | | [phone] | | | | | | | | | | | | Julia Fisher, | | | | | | PT | | +--------+ + + + + | 02/18/ | Appointment | Rehabilitation | Erika Ernst, | | | 2019 | | | DO [address] | | | | | | [place] [address] | | | | | | [phone] | | | | | | | | | | | | Genesis Ayon OT | | +--------+ + + + + | 02/25/ | Office | Primary Care | Erika Ernst, | | | 2019 | Visit | | DO [address] | | | | | | [place] [address] | | | | | | [phone] | | | | | | | [...] | | | | | [place] [address] | | | | | | [phone] | | | | | | | | +--------+ + + + + | 02/27/ | Appointment | Radiology | Dhara, | | | 2019 | | | [address] | | | | | | 4TH [facility], | | | | | | [place] [address] | | | | | | [phone] | | | | | | | [...] | | | | | [place] [address] | | | | | | [phone] | | | | | | | [...] [place] | | | | | | [address] | | | | | | [phone] | | | | | | | [...] | | | | | [place] [address] | | | | | | [phone] | | | | | | | | | | | | Azul Yeboah, | | | | | | MD [address] | | | | | | [place] | | | | | | [place] [address] | | | | | | [phone] | | | | | | | [...] | | | | | | [place] [address] | | | | | | [phone] | | | | | | | | +--------+ + + + + documented as of this encounter Visit Diagnoses Not on filedocumented in this encounter"
--- OUTSIDE RECORDS SUMMARY | ~2020-02-18 | XMS | Encounter Summary ---
Demographics + + + | Address | [address] | | | [place] [address] | + + + | Home Phone [...] Team Providers + +------+ + | Care Laryngologist Name | Role | Phone | + [...] MEDICAL CLINIC [address] | [place] [address] | | | | | [address] [place], | [phone] | | | | | [place] [address] | | | | | | [phone] | | | +--------+ + + + [...] | 2019 | | | DO [address] [facility] [address] [place] | | | | | | [place] [address] | | | | | | [phone] | | | | | | | [...] [address] | | | | | | [phone] | | | | | | | | | | | | Genesis Ayon OT | | +--------+ + + + + | 02/25/ | Office | Primary Care | Erika Ernst, | | | 2019 | Visit | | DO [address] | | | | | | [place] [address] | | | | | | [phone] | | | | | | | [...] | | | | | [place] [address] | | | | | | [phone] | | | | | | | | +--------+ + + + + | 02/27/ | Appointment | Radiology | Dhara, | | | 2019 | | | [address] | | | | | | 4TH [facility], | | | | | | [place] [address] | | | | | | [phone] | | | | | | | [...] | | | | | [place] [address] | | | | | | [phone] | | | | | | | [...] [place] | | | | | | [address] | | | | | | [phone] | | | | | | | [...] | | | | | [place] [address] | | | | | | [phone] | | | | | | | | | | | | Auzl Yeboah, | | | | | | MD [address] | | | | | | [place] | | | | | | [place] [address] | | | | | | [phone] | | | | | | | [...] | | | | | | [place] [address] | | | | | | [phone] | | | | | | | | +--------+ + + + + documented as of this encounter Visit Diagnoses Not on filedocumented in this encounter"
--- OUTSIDE RECORDS SUMMARY | ~2020-02-18 | XMS | Encounter Summary ---
Demographics + + + | Address | [address] | | | [place] [address] | + + + | Home Phone [...] Providers + +------+ + | Care Senior Systems Administrator Name | Role | Phone [...] | | | | s (de | [place], [place] | [place] [address] | | | | | quervain) | [address] | Phone: | | | | | Pain in | Phone: | [phone] | | | | | right wrist | [phone] | Fax: | | | | | Procedures | Fax: | [phone] | | | | | OT TREAT | [phone] | | +--------+--------+ + + + + [...] | | [address] [place] | [place] [address] | (Primary Dx); Right | | | | [place], [place] | [phone] | wrist pain | | | | [address] | | | | | | [phone] | Nakia Koo OT | | +--------+ [...] | 11/26/19 | | | (VITAMIN D3) 40743 | mouth Once a week | tablet [...] Ordering Physician: Jeffrey Gandhi MD Claim #: [id number] Date of Injury: No data was found [...] at last Assessment Left Hand Strength - Boiler Attendant (lbs) L Boiler Attendant Trial Average: 47 L Three Jaw Payam Trial Average: 12 L Lateral Pinch Trial Average: 17.33 Right Hand Strength - Boiler Attendant (lbs) R Boiler Attendant Trial Average: 25.67 R Three Jaw Payam Trial Average: 9.33 R Lateral Pinch Trial Average: 10.33 Current Strength Strength: Left Hand Strength - Boiler Attendant (lbs) L Boiler Attendant Trial 1: 51 L Boiler Attendant Trial Average: 51 Right Hand Strength - Boiler Attendant (lbs) R Boiler Attendant Trial 1: 25 R Boiler Attendant Trial Average: 25 Proposed Treatment Dates for Majoris Review Proposed treatments date: 12/06/2018 to 01/06/2019 Plan Date of Onset: 07/20/2018 Start of Care Date: 08/07/2018 Requested # of Visits: 24 visits 2x/week for 12 weeks Certification From: 10/30/2018 Certification To: 01/22/2019 Treatment Plan/Interventions OT [id number] - Therapeutic Etmebklc54766 - Therapeutic Uxmphylzit76992 - Self Care/Ho me Xrzgnnguqj52603 - Manual Nedzbqr65133 - Orthotic/Prosthetic Zoyhvulg25128 - Ovlfddailf769 34 - Contrast Qxmt50481 - Paraffin BathSplinting Moist heat, cold therapy [...] period and is compliant with wrist and ribbing machine operator strengthening exercises. She does still hav e deficits in ribbing machine operator strength and wrist stability as well as pain with daily activities. Her j ob description may be changing which would decrease the physical demands of her work, making it more appropriate for her current status. She continues to benefit from Chief Steward/Stewardess apy to maximize her ribbing machine operator strength and wrist stability following this injury and return her t o prior level of function. 10/30/2018 - REASON FOR RE-CERTIFICATION: Andrea has received 12 Occupational Therapy treatme nts since 08/07/2018 following her right wrist surgery. She has regained full AROM of the rig ht wrist but continues to have right wrist, ribbing machine operator and pinch weakness and significant [...] in 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, and ribbing machine operator and pinch weakness in the [...] note might be different from the original. [facility] [address] [place] [address] Occupational Therapy Progress Assessment Date: 11/29/2018 Patient [...] jar: 3 - Moderate Difficulty Do heavy household cook: 2 - Mild Difficulty Carry a shopping [...] Deviation: 21 Strength: Left Hand Strength - Boiler Attendant (lbs) L Boiler Attendant Trial 1: 51 L Boiler Attendant Trial Average: 51 Right Hand Strength - Boiler Attendant (lbs) R Boiler Attendant Trial 1: 25 R Boiler Attendant Trial Average: 25 Today's Treatment Patient Name: [...] period and is compliant with wrist and ribbing machine operator strengthening exercises. She does still hav e deficits in ribbing machine operator strength and wrist stability as well as pain with daily activities. Her j ob description may be changing which would decrease the physical demands of her work, making it more appropriate for her current status. She continues to benefit from Chief Steward/Stewardess apy to maximize her ribbing machine operator strength and wrist stability following this injury and return her t o prior level of function. 10/30/2018 - REASON FOR RE-CERTIFICATION: Andrea has received 12 Occupational Therapy treatme nts since 08/07/2018 following her right wrist surgery. She has regained full AROM of the rig ht wrist but continues to have right wrist, ribbing machine operator and pinch weakness and significant [...] in 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, and ribbing machine operator and pinch weakness in the [...] Goal 2: The pt will have right ribbing machine operator strength of 50 lbs by discharge Goal 2 Status: PARTIALLY MET at PN 11/29/2018 - Right ribbing machine operator has increased from 20 to 26 lbs s jessie evaluaiton. Left ribbing machine operator is 47 lbs Goal 3: The pt will have increased right pinch strength to 13 lbs by discharge Goal 3 Status: PARTIALLY MET at PN 11/01/2018 - right pinch is 9 lbs, left is 15 lbs Goal 4: The pt will be independent and compliant with HEP Goal 4 Status: ONGOING - pt reports daily compliance with HEP which includes wrist, ribbing machine operator an d pinch strengthening as well as general UE strengthening Plan Date of Onset: 07/20/2018 Start of Care Date: 08/07/2018 Requested # of Visits: 24 visits 2x/week for 12 weeks Certification From: 10/30/2018 Certification To: 01/22/2019 Treatment Plan/Interventions OT Ybtssorhaf57698 - Therapeutic Dindfyjo47000 - Therapeutic Qdmtyctrqb14939 - Self Care/Ho me Wkmstuzpjv65401 - Manual Zojdbcv72665 - Orthotic/Prosthetic Kifdyydf79349 - Gsdggvbszt967 34 - Contrast Xehb84704 - Paraffin BathSplinting Moist heat, cold therapy [...] | | | | | [place] [address] | | | | | | [phone] | | | | | | | | | | | | Julia Fisher, | | | | | | PT | | +--------+ + + + + | 02/18/ | Appointment | Rehabilitation | Erika Ernst, | | 2019 | | | DO [address] | | | | | | [place] [address] | | | | | | [phone] | | | | | | | | | | | | Genesis Ayon, OT | | +--------+ + + + + | 02/25/ | Office | Primary Care | Erika Ernst, | | 2019 | Visit | | DO [address] | | | | | | [place] [address] | | | | | | [phone] | | | | | | | [...] | | | | | [place] [address] | | | | | | [phone] | | | | | | | | +--------+ + + + + | 02/27/ | Appointment | Radiology | Dhara, | | | 2019 | | | [address] | | | | | | 4TH [facility], | | | | | | [place] [address] | | | | | | [phone] | | | | | | | | +--------+ + + + + | 03/04/ | Appointment | Rehabilitation | Genesis Ayon OT | | | 2019 | | | | | +--------+ + + + + | 03/09/ | Office | Orthopedic Surgery | Jeffrey Gandhi, | | | 2019 | Visit | | MD [address] [facility] | | | | | | [place] [address] | | | | | | [phone] | | | | | | | [...] [place] | | | | | | [address] | | | | | | [phone] | | | | | | | [...] | | | | | [place] [address] | | | | | | [phone] | | | | | | | | | | | | Azul Yeboah, | | | | | | MD [address] | | | | | | [place] | | | | | | [place] [address] | | | | | | [phone] | | | | | | | [...] [address] | | | | | | [phone] | | | | | | | | +--------+ + + + + documented as of this encounter Visit Diagnoses + + | Diagnosis | + + | Radial styloid tenosynovitis - Primary | + + | Right wrist pain Pain in joint, forearm | + + documented in this encounter"
--- OUTSIDE RECORDS SUMMARY | ~2020-02-18 | XMS | Encounter Summary ---
Demographics + + + | Address | [address] | | | [place] [address] | + + + | Home Phone [...] Providers + +------+ + | Care Lead Burner Supervisor Name | Role | Phone | [...] | [place] | [place] [address] | | | | | [address] | [phone] | | | | | [phone] | | | +--------+ + + + [...] | | | | | [place] [address] | | | | | | [phone] | | | | | | | | | | | | Julia Fisher, | | | | | | PT | | +--------+ + + + + | 02/18/ | Appointment | Rehabilitation | Erika Ernst, | | | 2019 | | | DO [address] | | | | | | [place] [address] | | | | | | [phone] | | | | | | | | | | | | Genesis Ayon OT | | +--------+ + + + + | 02/25/ | Office | Primary Care | Erika Ernst, | | | 2019 | Visit | | DO [address] | | | | | | [place] [address] | | | | | | [phone] | | | | | | | [...] | | | | | [place] [address] | | | | | | [phone] | | | | | | | | +--------+ + + + + | 02/27/ | Appointment | Radiology | Dhara, | | | 2019 | | | [address] | | | | | | 4TH [facility], | | | | | | [place] [address] | | | | | | [phone] | | | | | | | [...] [place] | | | | | | [place] [address] | | | | | | [phone] | | | | | | | [...] [place] | | | | | | [address] | | | | | | [phone] | | | | | | | [...] | | | | | [place] [address] | | | | | | [phone] | | | | | | | | | | | | Azul Yeboah, | | | | | | MD [address] | | | | | | [place] | | | | | | [place] [address] | | | | | | [phone] | | | | | | | [...] | | | | | | [place] [address] | | | | | | [phone] | | | | | | | | +--------+ + + + + documented as of this encounter Visit Diagnoses Not on filedocumented in this encounter"
--- OUTSIDE RECORDS SUMMARY | ~2020-02-18 | XMS | Encounter Summary ---
Demographics + + + | Address | [address] | | | [place] [address] | + + + | Home Phone [...] + +------+ + | Care Project Management Professor Name | Role | Phone | [...] | [facility] [address] | [place] [address] | | | | [address] [place], | [phone] | | | | | [place] [address] | | | | | | [phone] | | | +--------+ + + + [...] | | 2019 | | | DO [address] [place] [address] | | | | | | [place], [place] [address] | | | | | | [phone] | | | | | | | | | | | | Julia Fisher, | | | | | | PT | | +--------+ + + + + | 02/18/ | Appointment | Rehabilitation | Erika Ernst, | | | 2019 | | | DO [address] | | | | | | [place] [address] | | | | | | [phone] | | | | | | | | | | | | Genesis Ayon OT | | +--------+ + + + + | 02/25/ | Office | Primary Care | Erika Ernst, | | | 2019 | Visit | | DO [address] | | | | | | [place] [address] | | | | | | [phone] | | | | | | | [...] | | | | | [place] [address] | | | | | | [phone] | | | | | | | | +--------+ + + + + | 02/27/ | Appointment | Radiology | Dhara, | | | 2019 | | | [address] | | | | | | [address]TH [place], | | | | | | [place] [address] | | | | | | [phone] | | | | | | | [...] | | | | [place] [address] | | | | | | [phone] | | | | | | | [...] [place] | | | | | | [address] | | | | | | [phone] | | | | | | | [...] | | | | | [place] [address] | | | | | | [phone] | | | | | | | | | | | | Azul Yeboah, | | | | | | MD [address] | | | | | | [place] | | | | | | [place] [address] | | | | | | [phone] | | | | | | | [...] | | | | | | [place] [address] | | | | | | [phone] | | | | | | | | +--------+ + + + + documented as of this encounter Visit Diagnoses Not on filedocumented in this encounter"
--- OUTSIDE RECORDS SUMMARY | ~2020-02-18 | XMS | Encounter Summary ---
Demographics + + + | Address | [address] | | | [place] [address] | + + + | Home Phone [...] Providers + +------+ + | Care Clinical Allergist Name | Role | Phone | + [...] Concerns | | 2019 | | [facility] | DO [address] | | | | | MEDICAL [facility] [address] | [place] [address] | | | | | [address] [place], | [phone] | | | | | [place] [address] | | | | | | [phone] | | | +--------+ + + + [...] | | | | | [place] [address] | | | | | | [phone] | | | | | | | | | | | | Julia Fisher, | | | | | | PT | | +--------+ + + + + | 02/18/ | Appointment | Rehabilitation | Erika Ernst, | | | 2019 | | | DO [address] | | | | | | [place] [address] | | | | | | [phone] | | | | | | | | | | | | Genesis Ayon OT | | +--------+ + + + + | 02/25/ | Office | Primary Care | Erika Ernst, | | | 2019 | Visit | | DO [address] | | | | | | [place] [address] | | | | | | [phone] | | | | | | | [...] | | | | | [place] [address] | | | | | | [phone] | | | | | | | | +--------+ + + + + | 02/27/ | Appointment | Radiology | Dhara, | | | 2019 | | | [address] | | | | | | 4TH [facility], | | | | | | [place] [address] | | | | | | [phone] | | | | | | | [...] [place] | | | | | | [place] [address] | | | | | | [phone] | | | | | | | [...] [place] | | | | | | [address] | | | | | | [phone] | | | | | | | [...] | | | | | [place] [address] | | | | | | [phone] | | | | | | | | | | | | Azul Yeboah, | | | | | | MD [address] | | | | | | [place] | | | | | | [place] [address] | | | | | | [phone] | | | | | | | [...] | | | | | | [place] [address] | | | | | | [phone] | | | | | | | | +--------+ + + + + documented as of this encounter Visit Diagnoses Not on filedocumented in this encounter"
--- OUTSIDE RECORDS SUMMARY | ~2020-02-18 | XMS | Encounter Summary ---
Demographics + + + | Address | [address] | | | [place] [address] | + + + | Home Phone [...] Providers + +------+ + | Care Manager Equipment Name | Role | Phone | + [...] | Travis Malone FNP | S/P right [facility] | | 2019 | Visit | [facility] | [address] [place] | tenosynovectomy on | | | | [address] [place] | [place], [place] | 03/20/19 | | | | [place], [place] | [address] | | | | | [address] | [phone] | | | | | [phone] | | | +--------+---------+ + + + [...] number, which will transfer you to the [facility] service at the hospital and ask for the commercial sales consultant orthopedic provider. Be sure to mention t hat you've had surgery recently. documented in this encounter Progress Notes Travis Malone FNP - 03/26/2019 10:40 AM PDT Orthopedic Postoperative Note Patient Name: Andrea Suh | Age: 28 y.o. | : 1990 | Medical Record Number:[id number] | Author: MOHSEN Martinez | Date of Encounter: 03/26/2019 Surgeon: Inocencio Noriega MD History of present illness Andrea Suh is a 28 y.o. female that follows up in the office 1 week status post [facility] tendon tenosynovectomy reporting no significant concerns [...] E.C.U. Tendon; Surgeon: Inocencio Noriega MD; Location: [facility] RIGHT KIDNER PROCEDURE 01/20/2016 Surgeon: Fani Mahajan MD; Location: [facility] TENDON RELEASE TONSILLECTOMY WISDOM TOOTH EXTRACTION Family History Problem Relation Age of Onset Other (see comment) Mother gallbladder disease Hypertension Father Other (see comment) Father arrhymthmia Breast cancer Sister Cervical cancer Maternal Grandmother Heart attack Maternal Aunt [place] Social History Tobacco Use Smoking status: Never [...] and their vital signs recorded by my educational/development assistant today, a s found in this chart note. Electronically signed by: MOHSEN Martinez 03/26/2019 at 10:55 Note: Part of this report was transcribed using voice recognition software. Every effort wa s made to ensure accuracy. However, inadvertent computerized dry box tender errors may be pre sent. CC: [...] | | | | | [place] [address] | | | | | | [phone] | | | | | | | | | | | | Julia Fisher, | | | | | | PT | | +--------+ + + + + | 02/18/ | Appointment | Rehabilitation | Erika Ernst, | | | 2019 | | | DO [address] | | | | | | [place] [address] | | | | | | [phone] | | | | | | | | | | | | Genesis Ayon OT | | +--------+ + + + + | 02/25/ | Office | Primary Care | Erika Ernst, | | | 2019 | Visit | | DO [address] | | | | | | [place] [address] | | | | | | [phone] | | | | | | | [...] | | | | | [place] [address] | | | | | | [phone] | | | | | | | | +--------+ + + + + | 02/27/ | Appointment | Radiology | Dhara, | | | 2019 | | | [address] | | | | | | 4TH [facility], | | | | | | [place] [address] | | | | | | [phone] | | | | | | | | +--------+ + + + + | 03/04/ | Appointment | Rehabilitation | Genesis Ayon OT | | | 2019 | | | | | +--------+ + + + + | 03/09/ | Office | Orthopedic Surgery | Jeffrey Gandhi, | | | 2019 | Visit | | [address] | | | | | | [place] [address] | | | | | | [phone] | | | | | | | [...] [place] | | | | | | [address] | | | | | | [phone] | | | | | | | [...] | | | | | [place] [address] | | | | | | [phone] | | | | | | | | | | | | Azul Yeboah, | | | | | | MD [address] | | | | | | [place] | | | | | | [place] [address] | | | | | | [phone] | | | | | | | [...] | | | | | | [place] [address] | | | | | | [phone] | | | | | | | | +--------+ + + + + documented as of this encounter Visit Diagnoses + + | Diagnosis | + + | S/P right [facility] tenosynovectomy on 03/20/19 | + + documented in this encounter"
--- OUTSIDE RECORDS SUMMARY | ~2020-02-18 | XMS | Encounter Summary ---
Demographics + + + | Address | [address] | | | [place] [address] | + + + | Home Phone [...] Team Providers + +------+ + | Care Depalletizer Operator Name | Role | Phone | [...] | [place], [place] | [place] [address] | initial encounter | | | | [address] | [phone] | (Primary Dx) | | | | [phone] | | | +--------+---------+ + + + [...] had subsequent surgery by Dr. Gandhi in [facility] for her right wrist. At that primo [...] cancer Maternal Grandmother Heart attack Maternal Aunt [place] Social History Tobacco Use Smoking status: Never [...] made to ensure accuracy. However, inadvertent computerized micro computer data processor errors may be pre sent. documented in thi s encounter Plan of Treatment +--------+ + + + + | Date | Type | Specialty | Care Team | Description | +--------+ + + + + | 02/18/ | Appointment | Rehabilitation | Erika Ernst, | | | 2019 | | | DO [address] | | | | | | [place], [place] [address] | | | | | | [phone] | | | | | | | [...] [address] | | | | | | [phone] | | | | | | | | | | | | Genesis Ayon OT | | +--------+ + + + + | 02/25/ | Office | Primary Care | Erika Ernst, | | | 2019 | Visit | | DO [address] | | | | | | [place] [address] | | | | | | [phone] | | | | | | | [...] | | | | | [place] [address] | | | | | | [phone] | | | | | | | | +--------+ + + + + | 02/27/ | Appointment | Radiology | Dhara, | | | 2019 | | | [address] | | | | | | 4TH [facility], | | | | | | [place] [address] | | | | | | [phone] | | | | | | | [...] | | | | | [place] [address] | | | | | | [phone] | | | | | | | [...] [place] | | | | | | [address] | | | | | | [phone] | | | | | | | [...] | | | | | [place] [address] | | | | | | [phone] | | | | | | | | | | | | Azul Yeboah, | | | | | | MD [address] | | | | | | [place] | | | | | | [place] [address] | | | | | | [phone] | | | | | | | [...] | | | | | | [place] [address] | | | | | | [phone] | | | | | | | [...] 84.5 | 82.0 - 97.0 fL | [place] [...] 10.4 | 9.4 - 12.3 fL | [place] [...] + + | [place] [facility] | [address] | [place] | [phone] | | [facility] | | [address] | | + + + + + [...] | mL/min/1.73m2 | [facility] | | | [facility] | | | [facility] | | | [...] + + | [place] [facility] | [address] | [place] | [phone] | | HOSPITAL [facility] | | [address] | | + + + + + documented in this encounter Visit Diagnoses + + | Diagnosis | + + | Hand and wrist extensor tendon rupture, left, initial encounter - Primary | + + documented in this encounter"
--- OUTSIDE RECORDS SUMMARY | ~2020-02-18 | XMS | Encounter Summary ---
Demographics + + + | Address | [address] | | | [place] [address] | + + + | Home Phone [...] Providers + +------+ + | Care Detective Bureau Chief Name | Role | Phone | + [...] | [place], [place] | [place] [address] | | | | | [address] | [phone] | | | | | [phone] | | | +--------+ + + + [...] | | | | | [place] [address] | | | | | | [phone] | | | | | | | [...] [address] | | | | | | [phone] | | | | | | | | | | | | [facility] OT | | +--------+ + + + + | 02/25/ | Office | Primary Care | Erika Ernst, | | | 2019 | Visit | | DO [address] [place] | | | | | | [place] [address] | | | | | | [phone] | | | | | | | [...] | | | | | | [place] [address] | | | | | | [phone] | | | | | | | | +--------+ + + + + | 02/27/ | Appointment | Radiology | Dhara, | | | 2019 | | | [address] | | | | | | 4TH [facility], | | | | | | [place] [address] | | | | | | [phone] | | | | | | | | +--------+ + + + + | 03/04/ | Appointment | Rehabilitation | Genesis Ayon OT | | | 2019 | | | | | +--------+ + + + + | 03/09/ | Office | Orthopedic Surgery | Jeffrey Gandhi, | | | 2019 | Visit | | [address] | | | | | | [place] [address] | | | | | | [phone] | | | | | | | [...] [place] | | | | | | [address] | | | | | | [phone] | | | | | | | [...] | | | | | [place] [address] | | | | | | [phone] | | | | | | | | | | | | Azul Yeboah, | | | | | | [address] | | | | | | [place] | | | | | | [place] [address] | | | | | | [phone] | | | | | | | [...] | | | | | | [place] [address] | | | | | | [phone] | | | | | | | | +--------+ + + + + documented as of this encounter Visit Diagnoses Not on filedocumented in this encounter"
--- OUTSIDE RECORDS SUMMARY | ~2020-02-18 | XMS | Encounter Summary ---
Demographics + + + | Address | [address] | | | [place] [address] | + + + | Home Phone [...] Team Providers + +------+ + | Care Risk Management Consultant Name | Role | Phone | + +------+ + PCP | Unavailable | + +------+ + Encounter Details +--------+ + + + + | Date | Type | Department | Care Team | Description | +--------+ + + + + | 11/30/ | [facility] | Nicanor Mckeon | | | 2015 | Encounter | [facility] | MD Caryn [address] | | | | | [facility] [address] | [place], [place] | | | | | 4TH [facility], | [address] | | | | | [place] [address] | [phone] | | | | | [phone] | | | +--------+ + + + [...] | | | | | [place] [address] | | | | | | [phone] | | | | | | | | | | | | Julia Fisher, | | | | | | PT | | +--------+ + + + + | 02/18/ | Appointment | Rehabilitation | Erika Ernst, | | | 2019 | | | DO [address] [place] | | | | | | [place] [address] | | | | | | [phone] | | | | | | | | | | | | Genesis Ayon, OT | | +--------+ + + + + | 02/25/ | Office | Primary Care | Erika Ernst, | | | 2019 | Visit | | DO [address] [place] | | | | | | [place] [address] | | | | | | [phone] | | | | | | | [...] | | | | | [place] [address] | | | | | | [phone] | | | | | | | | +--------+ + + + + | 02/27/ | Appointment | Radiology | Dhara, | | | 2019 | | | [address] | | | | | | 4TH [facility], | | | | | | [place] [address] | | | | | | [phone] | | | | | | | [...] HOSPITAL | | | | | | [place] [address] | | | | | | [phone] | | | | | | | [...] [place] | | | | | | [address] | | | | | | [phone] | | | | | | | [...] | | | | | [place] [address] | | | | | | [phone] | | | | | | | | | | | | Azul Yeboah, | | | | | | MD [address] | | | | | | [place] | | | | | | [place] [address] | | | | | | [phone] | | | | | | | [...] | | | | | | [place] [address] | | | | | | [phone] | | | | | | | | +--------+ + + + + documented as of this encounter Visit Diagnoses Not on filedocumented in this encounter"
--- OUTSIDE RECORDS SUMMARY | ~2020-02-18 | XMS | Encounter Summary ---
Demographics + + + | Address | [address] | | | [place] [address] | + + + | Home Phone [...] Providers + +------+ + | Care Patternmaker Name | Role | Phone | + [...] | | | | encounter | [place] [address] | [place], [place] | | | | | Procedures | Phone: | [address] | | | | | [place] | [phone] | Phone: | | | | | | Fax: | [phone] | | | | | | [phone] | Fax: | | | | | | | [phone] | +--------+ + + + + + [...] | MEDICAL [facility] [address] | [place] [address] | encounter (Primary | | | | [address] [place], | [phone] | Dx); Hypothyroidism, | | | | [place] [address] | | unspecified type; | | | | [phone] | | Iron deficiency | +--------+---------+ + [...] lateral side from sm finger proximally. 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 S he has appointment [...] No redness. Prior hubbard rgical area healed. Material Requirements Planning Manager and ROM decreased due to pain of [...] | | | | | [place] [address] | | | | | | [phone] | | | | | | | | | | | | Julia Fisher, | | | | | | PT | | +--------+ + + + + | 02/18/ | Appointment | Rehabilitation | Erika Ernst, | | | 2019 | | | DO [address] [place] | | | | | | [place] [address] | | | | | | [phone] | | | | | | | | | | | | Genesis Ayon, OT | | +--------+ + + + + | 02/25/ | Office | Primary Care | Erika Ernst, | | | 2019 | Visit | | DO [address] [place] | | | | | | [place] [address] | | | | | | [phone] | | | | | | | [...] | | | | | [place] [address] | | | | | | [phone] | | | | | | | | +--------+ + + + + | 02/27/ | Appointment | Radiology | Dhara, | | | 2019 | | | [address] | | | | | | [address] [place], | | | | | | [place] [address] | | | | | | [phone] | | | | | | | | +--------+ + + + + | 03/04/ | Appointment | Rehabilitation | Genesis Ayon OT | | | 2019 | | | | | +--------+ + + + + | 03/09/ | Office | Orthopedic Surgery | Jeffrey Gandhi, | | 2019 | Visit | | [place] [address] [facility] | | | | | | [place] [address] | | | | | | [phone] | | | | | | | [...] [place] | | | | | | [address] | | | | | | [phone] | | | | | | | [...] | | | | | [place] [address] | | | | | | [phone] | | | | | | | | | | | | Azul Yeboah, | | | | | | MD [address] | | | | | | [place] | | | | | | [place] [address] | | | | | | [phone] | | | | | | | [...] [address] | | | | | | [phone] | | | | | | | [...] + + + | [place] [facility] | [address] [place] [address] Street | [place], [place] | [phone] | | [facility] | | [address] | | | [facility] | [...]
--- OUTSIDE RECORDS SUMMARY | ~2020-02-18 | XMS | Encounter Summary ---
Demographics + + + | Address | [address] | | | [place] [address] | + + + | Home Phone [...] Team Providers + +------+ + | Care Dialysis Clinical Manager Name | Role | Phone | [...] | MEDICAL CLIN[facility] [address] | [place] [address] | | | | | [address] [place], | [phone] | | | | | [place] [address] | | | | | | [phone] | | | +--------+ + + + [...] | | | | | [place] [address] | | | | | | [phone] | | | | | | | | | | | | Julia Fisher, | | | | | | PT | | +--------+ + + + + | 02/18/ | Appointment | Rehabilitation | Erika Ernst, | | | 2019 | | | DO [address] [place] | | | | | | [place] [address] | | | | | | [phone] | | | | | | | | | | | | Genesis Ayon, OT | | +--------+ + + + + | 02/25/ | Office | Primary Care | Erika Ernst, | | | 2019 | Visit | | DO [address] [place] | | | | | | [place] [address] | | | | | | [phone] | | | | | | | [...] | | | | | [place] [address] | | | | | | [phone] | | | | | | | | +--------+ + + + + | 02/27/ | Appointment | Radiology | Dhara, | | | 2019 | | | [address] | | | | | | 4TH [facility], | | | | | | [place] [address] | | | | | | [phone] | | | | | | | | +--------+ + + + + | 03/04/ | Appointment | Rehabilitation | Genesis Ayon OT | | 2019 | | | | | +--------+ + + + + | 03/09/ | Office | Orthopedic Surgery | Jeffrey Gandhi, | | | 2019 | Visit | | [address] | | | | | | [place] [address] | | | | | | [phone] | | | | | | | [...] [place] | | | | | | [address] | | | | | | [phone] | | | | | | | [...] | | | | | [place] [address] | | | | | | [phone] | | | | | | | | | | | | Azul Yeboah, | | | | | | MD [address] | | | | | | [place] | | | | | | [place] [address] | | | | | | [phone] | | | | | | | [...] | | | | | | [place] [address] | | | | | | [phone] | | | | | | | | +--------+ + + + + documented as of this encounter Visit Diagnoses Not on filedocumented in this encounter"
--- OUTSIDE RECORDS SUMMARY | ~2020-02-18 | XMS | Encounter Summary ---
Demographics + + + | Address | [address] | | | [place] [address] | + + + | Home Phone [...] Providers + +------+ + | Care Meat Packer Name | Role | Phone | [...] Asthma | | 2019 | | [facility] | DO [address] | | | | | MEDICAL CLIN[facility] [address] | [place] [address] | | | | | [address] [place], | [phone] | | | | | [place] [address] | | | | | | [phone] | | | +--------+ + + + [...] | | | | | [place] [address] | | | | | | [phone] | | | | | | | | | | | | Julia Fisher, | | | | | | PT | | +--------+ + + + + | 02/18/ | Appointment | Rehabilitation | Erika Ernst, | | | 2019 | | | DO [address] [place] | | | | | | [place] [address] | | | | | | [phone] | | | | | | | | | | | | Genesis Ayon OT | | +--------+ + + + + | 02/25/ | Office | Primary Care | Erika Ernst, | | | 2019 | Visit | | DO [address] [place] | | | | | | [place] [address] | | | | | | [phone] | | | | | | | [...] | | | | | [place] [address] | | | | | | [phone] | | | | | | | | +--------+ + + + + | 02/27/ | Appointment | Radiology | Dhara, | | | 2019 | | | [address] | | | | | | [address] [place], | | | | | | [place] [address] | | | | | | [phone] | | | | | | | [...] | | | | | [place] [address] | | | | | | [phone] | | | | | | | [...] [place] | | | | | | [address] | | | | | | [phone] | | | | | | | [...] | | | | | [place] [address] | | | | | | [phone] | | | | | | | | | | | | Azul Yeboah, | | | | | | MD [address] | | | | | | [place] | | | | | | [place] [address] | | | | | | [phone] | | | | | | | [...] | | | | | | [place] [address] | | | | | | [phone] | | | | | | | | +--------+ + + + + documented as of this encounter Visit Diagnoses Not on filedocumented in this encounter"
--- OUTSIDE RECORDS SUMMARY | ~2020-02-18 | XMS | Encounter Summary ---
Demographics + + + | Address | [address] | | | [place] [address] | + + + | Home Phone [...] Providers + +------+ + | Care Apprentice Architect Name | Role | Phone | + +------+ + | Erika Ernst DO | PCP | | + +------+ + Reason for Visit + + + | Reason | Comments | + + + | Medication Related | Pt request call back today re: med reccomendation by Dr. Lawton | + + + Encounter Details +--------+ + + + + | Date | Type | Department | Care Team | Description | +--------+ + + + + | 10/30/ | Telephone | [place] [facility] | Erika Ernst, | Medication Related | | 2020 | | [facility] | DO [address] | (Pt request call | | | | MEDICAL [facility] [address] | [facility] [place] [address] | back today re: med | | | | 4TH [facility], | [phone] | reccomendation by | | | | [place] [address] | | Dr. Lawton) | | | | [phone] | | | +--------+ + + + [...] | | | | | [place] [address] | | | | | | [phone] | | | | | | | | | | | | Julia Fisher, | | | | | | PT | | +--------+ + + + + | 02/18/ | Appointment | Rehabilitation | Erika Ernst, | | | 2019 | | | DO [address] [place] | | | | | | [place] [address] | | | | | | [phone] | | | | | | | | | | | | Genesis [facility]yon OT | | +--------+ + + + + | 02/25/ | Office | Primary Care | Erika Ernst, | | | 2019 | Visit | | DO [address] [place] | | | | | | [place] [address] | | | | | | [phone] | | | | | | | [...] | | | | | [place] [address] | | | | | | [phone] | | | | | | | | +--------+ + + + + | 02/27/ | Appointment | Radiology | Dhara, | | 2019 | | | [address] | | | | | | [address] [place], | | | | | | [place] [address] | | | | | | [phone] | | | | | | | | +--------+ + + + + | 03/04/ | Appointment | Rehabilitation | Genesis Ayon OT | | | 2019 | | | | | +--------+ + + + + | 03/09/ | Office | Orthopedic Surgery | Jeffrey Gandhi, | | | 2019 | Visit | | [address] [facility] | | | | | | [place] [address] | | | | | | [phone] | | | | | | | [...] [place] | | | | | | [address] | | | | | | [phone] | | | | | | | [...] | | | | | [place] [address] | | | | | | [phone] | | | | | | | | | | | | Azul Yeboah, | | | | | | MD [address] | | | | | | [place] | | | | | | [place] [address] | | | | | | [phone] | | | | | | | [...] | | | | | | [place] [address] | | | | | | [phone] | | | | | | | | +--------+ + + + + documented as of this encounter Visit Diagnoses + + | Diagnosis | + + | TMJ (temporomandibular joint disorder) - Primary Temporomandibular joint disorders, | | unspecified | + + documented in this encounter"
--- OUTSIDE RECORDS SUMMARY | ~2020-02-18 | XMS | Encounter Summary ---
Demographics + + + | Address | [address] | | | [place] [address] | + + + | Home Phone [...] Providers + +------+ + | Care Center Punch Operator Name | Role | Phone | + +------+ + PCP | Unavailable | + +------+ + Encounter Details +--------+ + + + + | Date | Type | Department | Care Team | Description | +--------+ + + + + | 02/25/ | [facility] | Caro Zendejas | | | 2015 | Encounter | [facility] | Vale, LICENSED PLUMBER [address] | | | | | MEDICAL CL[facility] [address] | [place], [place] | | | | | 4TH [facility], | [address] | | | | | [place] [address] | [phone] | | | | | [phone] | | | +--------+ + + + [...] | | | | | [place] [address] | | | | | | [phone] | | | | | | | | | | | | Julia Fisehr, | | | | | | PT | | +--------+ + + + + | 02/18/ | Appointment | Rehabilitation | Erika Ernst, | | | 2019 | | | DO [address] [place] | | | | | | [place] [address] | | | | | | [phone] | | | | | | | | | | | | Genesis Ayon, OT | | +--------+ + + + + | 02/25/ | Office | Primary Care | Erika Ernst, | | | 2019 | Visit | | DO [address] [place] | | | | | | [place] [address] | | | | | | [phone] | | | | | | | [...] | | | | | [place] [address] | | | | | | [phone] | | | | | | | | +--------+ + + + + | 02/27/ | Appointment | Radiology | Dhara, | | | 2019 | | | [address] | | | | | | 4TH [facility], | | | | | | [place] [address] | | | | | | [phone] | | | | | | | | +--------+ + + + + | 03/04/ | Appointment | Rehabilitation | Genesis Ayon OT | | | 2019 | | | | | +--------+ + + + + | 03/09/ | Office | Orthopedic Surgery | Jeffrey Gandhi, | | | 2019 | Visit | | [address] | | | | | | [place] [address] | | | | | | [phone] | | | | | | | [...] [place] | | | | | | [address] | | | | | | [phone] | | | | | | | [...] | | | | | [place] [address] | | | | | | [phone] | | | | | | | | | | | | Azul Yeboah, | | | | | | MD [address] | | | | | | [place] | | | | | | [place] [address] | | | | | | [phone] | | | | | | | [...] | | | | | | [place] [address] | | | | | | [phone] | | | | | | | | +--------+ + + + + documented as of this encounter Visit Diagnoses Not on filedocumented in this encounter"
--- OUTSIDE RECORDS SUMMARY | ~2020-02-18 | XMS | Encounter Summary ---
Demographics + + + | Address | [address] | | | [place] [address] | + + + | Home Phone [...] Team Providers + +------+ + | Care Lift Truck Mechanic Name | Role | Phone | [...] Results | | 2017 | | [facility] | PACKAGING MECHANIC | | | | | MEDICAL CL[facility] [address] | | | | | | 4TH [facility] [place], | | | | | | [place] [address] | | | | | | [phone] | | | +--------+ + + + [...] | | 2019 | | | DO [facility] | | | | | | [place] [address] | | | | | | [phone] | | | | | | | | | | | | Julia Fisher, | | | | | | PT | | +--------+ + + + + | 05/20/ | Appointment | Rehabilitation | Erika Ernst, | | | 2019 | | | DO [address] [place] | | | | | | [place] [address] | | | | | | [phone] | | | | | | | | | | | | Genesis Ayon OT | | +--------+ + + + + | 02/25/ | Office | Primary Care | Erika Ernst, | | | 2019 | Visit | | DO [address] [place] | | | | | | [place] [address] | | | | | | [phone] | | | | | | | [...] | | | | | [place] [address] | | | | | | [phone] | | | | | | | | +--------+ + + + + | 02/27/ | Appointment | Radiology | Dhara, | | | 2019 | | | [address] | | | | | | 4TH [facility] [place], | | | | | | [place] [address] | | | | | | [phone] | | | | | | | [...] | | | | | [place] [address] | | | | | | [phone] | | | | | | | [...] [place] | | | | | | [address] | | | | | | [phone] | | | | | | | [...] | | | | | [place] [address] | | | | | | [phone] | | | | | | | | | | | | Auzl Yeboah, | | | | | | MD [address] | | | | | | [place] | | | | | | [place] [address] | | | | | | [phone] | | | | | | | [...] | | | | | | [place] [address] | | | | | | [phone] | | | | | | | | +--------+ + + + + documented as of this encounter Visit Diagnoses Not on filedocumented in this encounter"
--- OUTSIDE RECORDS SUMMARY | ~2020-02-18 | XMS | Encounter Summary ---
Demographics + + + | Address | [address] | | | [place] [address] | + + + | Home Phone [...] Providers + +------+ + | Care Business Development Agent Name | Role | Phone | [...] | | | | Procedures | [place] [address] | [place], [place] | | | | | [place] | Phone: | [phone] | | | | | | [phone] | Phone: | | | | | | Fax: | [phone] | | | | | | [phone] | Fax: | | | | | | | [phone] | +--------+ + + + + + Encounter Details +--------+---------+ + + + | Date | Type | Department | Care Team | Description | +--------+---------+ + + + | 08/01/ | Office | [place] [facility] | Anthony Alvarado MD | Multiple thyroid | | 2019 | Visit | [facility] [address] | [address] [place] | nodules; Left | | | | [address] [place] | [place], [place] | thyroid nodule | | | | [place], [place] | [address] | | | | | [address] | [phone] | | | | | [phone] | | | +--------+---------+ + + + [...] Clinic Note For: Andrea Suh 29 y.o. [id number] On 08/01/2019, Andrea Suh was seen by [...] | | | | | [place] [address] | | | | | | [phone] | | | | | | | | | | | | Julia Fisher, | | | | | | PT | | +--------+ + + + + | 02/18/ | Appointment | Rehabilitation | Erika Ernst, | | | 2019 | | | DO [address] [place] | | | | | | [place] [address] | | | | | | [phone] | | | | | | | | | | | | Genesis Ayon, OT | | +--------+ + + + + | 02/25/ | Office | Primary Care | Erika Ernst, | | | 2019 | Visit | | DO [address] [place] | | | | | | [place] [address] | | | | | | [phone] | | | | | | | [...] | | | | | [place] [address] | | | | | | [phone] | | | | | | | | +--------+ + + + + | 02/27/ | Appointment | Radiology | Dhara, | | | 2019 | | | [address] | | | | | | [address]TH [place], | | | | | | [place] [address] | | | | | | [phone] | | | | | | | | +--------+ + + + + | 03/04/ | Appointment | Rehabilitation | Genesis Ayon OT | | 2019 | | | | | +--------+ + + + + | 03/09/ | Office | Orthopedic Surgery | Jeffrey Gandhi, | | 2019 | Visit | | [address] | | | | | | [place] [address] | | | | | | [phone] | | | | | | | [...] [place] | | | | | | [address] | | | | | | [phone] | | | | | | | [...] | | | | | [place] [address] | | | | | | [phone] | | | | | | | | | | | | Azul Yeboah, | | | | | | [address] | | | | | | [place] | | | | | | [place] [address] | | | | | | [phone] | | | | | | | [...] | | | | | | [place] [address] | | | | | | [phone] | | | | | | | [...]
--- OUTSIDE RECORDS SUMMARY | ~2020-02-18 | XMS | Encounter Summary ---
Demographics + + + | Address | [address] | | | [place] [address] | + + + | Home Phone [...] Team Providers + +------+ + | Care Imaging System Administrator Name | Role | Phone | + +------+ + | Erika Ernst DO | PCP | | + +------+ + Encounter Details +--------+ + + + + | Date | Type | Department | Care Team | Description | +--------+ + + + + | 12/06/ | [facility] | [place] [facility] | Daxa, Emily E, DPM | Sprain of deltoid | | 2019 | Encounter | HOSPITAL | [address] [place] | ligament of left | | | | ORTHOPAEDICS XRAY | [place] | ankle, sequela | | | | [address] [place] | [address] | | | | | [place], [place] | | | | | | [address] | | | | | | [phone] | | | +--------+ + + + [...] | 11/26/19 | | | (VITAMIN D3) 14359 | mouth Once a week | tablet [...] | | | | | [place] [address] | | | | | | [phone] | | | | | | | | | | | | Julia Fisher, | | | | | | PT | | +--------+ + + + + | 02/18/ | Appointment | Rehabilitation | Erika Ernst, | | | 2019 | | | DO [address] [place] | | | | | | [place] [address] | | | | | | [phone] | | | | | | | | | | | | Genesis Ayon OT | | +--------+ + + + + | 02/25/ | Office | Primary Care | Erika Ernst, | | | 2019 | Visit | | DO [address] [place] | | | | | | [place] [address] | | | | | | [phone] | | | | | | | [...] | | | | | [place] [address] | | | | | | [phone] | | | | | | | | +--------+ + + + + | 02/27/ | Appointment | Radiology | Dhara, | | | 2019 | | | [address] | | | | | [address] [place], | | | | | | [place] [address] | | | | | | [phone] | | | | | | | | +--------+ + + + + | 03/04/ | Appointment | Rehabilitation | Genesis Ayon OT | | | 2019 | | | | | +--------+ + + + + | 03/09/ | Office | Orthopedic Surgery | Jeffrey Gandhi, | | | 2019 | Visit | | [address] | | | | | | [place] [address] | | | | | | [phone] | | | | | | | [...] [place] | | | | | | [address] | | | | | | [phone] | | | | | | | [...] | | | | | [place] [address] | | | | | | [phone] | | | | | | | | | | | | Azul Yeboah, | | | | | | MD [address] | | | | | | [place] | | | | | | [place] [address] | | | | | | [phone] | | | | | | | [...] | | | | | | [place] [address] | | | | | | [phone] | | | | | | | [...] IMAGING | | COMPARISON STUDY: None FINDINGS: Delavan angle 46 degrees. | | | Talocalcaneal [...] LEFT 3 + | | VWHISTORY:pes planusCOMPARISON STUDY:NoneFINDINGS:Delavan angle 46 degrees.Talocalcaneal | | angle 25 [...] | |None | | | |FINDINGS: | |Delavan angle 46 degrees. | | | |Talocalcaneal [...]
--- OUTSIDE RECORDS SUMMARY | ~2020-02-18 | XMS | Encounter Summary ---
Demographics + + + | Address | [address] | | | [place] [address] | + + + | Home Phone [...] Providers + +------+ + | Care Pool Player Name | Role | Phone | [...] + + + + | 10/01/ | Telephone | [place] [facility] | Erika Ernst, | LABS | | 2019 | | [facility] | DO [address] | | | | | [facility] [address] | [place] [address] | | | | [address] [place], | [phone] | | | | | [place] [address] | | | | | | [phone] | | | +--------+ + + + [...] | | | | | [place] [address] | | | | | | [phone] | | | | | | | | | | | | Julia Fisher, | | | | | | PT | | +--------+ + + + + | 02/18/ | Appointment | Rehabilitation | Erika Ernst, | | | 2019 | | | DO [address] | | | | | | [place] [address] | | | | | | [phone] | | | | | | | | | | | | Genesis Ayon OT | | +--------+ + + + + | 02/25/ | Office | Primary Care | Erika Ernst, | | | 2019 | Visit | | DO [address] | | | | | | [place] [address] | | | | | | [phone] | | | | | | | [...] | | | | | [place] [address] | | | | | | [phone] | | | | | | | | +--------+ + + + + | 02/27/ | Appointment | Radiology | Dhara, | | | 2019 | | | [address] | | | | | | [facility] | | | | | | [place] [address] | | | | | | [phone] | | | | | | | [...] [place] | | | | | | [place] [address] | | | | | | [phone] | | | | | | | [...] [place] | | | | | | [address] | | | | | | [phone] | | | | | | | [...] | | | | | [place] [address] | | | | | | [phone] | | | | | | | | | | | | Azul Yeboah, | | | | | | MD [address] | | | | | | [place] | | | | | | [place] [address] | | | | | | [phone] | | | | | | | [...] | | | | | | [place] [address] | | | | | | [phone] | | | | | | | | +--------+ + + + + documented as of this encounter Visit Diagnoses Not on filedocumented in this encounter"
--- OUTSIDE RECORDS SUMMARY | ~2020-02-18 | XMS | Encounter Summary ---
Demographics + + + | Address | [address] | | | [place] [address] | + + + | Home Phone [...] Providers + +------+ + | Care Hosiery Knitter Name | Role | Phone | + [...] | 2018 | | [facility] | METAL WIRE COATING OPERATOR | | | | | [facility] [address] | | | | | | [address] [place], | | | | | | [place] [address] | | | | | | [phone] | | | +--------+--------+ + + + [...] 2019 | | | DO [address] | | | | | | [place] [address] | | | | | | [phone] | | | | | | | | | | | | Julia Fisher, | | | | | | PT | | +--------+ + + + + | 02/18/ | Appointment | Rehabilitation | Erika Ernst, | | | 2019 | | | DO [address] [place] | | | | | | [place] [address] | | | | | | [phone] | | | | | | | | | | | | [facility] | | +--------+ + + + + | 02/25/ | Office | Primary Care | Erika Ernst, | | | 2019 | Visit | | DO [address] [place] | | | | | | [place] [address] | | | | | | [phone] | | | | | | | [...] | | | | | [place] [address] | | | | | | [phone] | | | | | | | | +--------+ + + + + | 02/27/ | Appointment | Radiology | Dhara, | | | 2019 | | | [address] | | | | | | 4TH [facility], | | | | | | [place] [address] | | | | | | [phone] | | | | | | | [...] | | | | [place], [place] [address] | | | | | | [phone] | | | | | | | [...] [place] | | | | | | [address] | | | | | | [phone] | | | | | | | [...] | | | | | [place] [address] | | | | | | [phone] | | | | | | | | | | | | Azul Yeboah, | | | | | | MD [address] | | | | | | [place] | | | | | | [place] [address] | | | | | | [phone] | | | | | | | [...] | | | | | | [place] [address] | | | | | | [phone] | | | | | | | | +--------+ + + + + documented as of this encounter Visit Diagnoses Not on filedocumented in this encounter"
--- OUTSIDE RECORDS SUMMARY | ~2020-02-18 | XMS | Encounter Summary ---
Demographics + + + | Address | [address] | | | [place] [address] | + + + | Home Phone [...] Team Providers + +------+ + | Care Appeals Assistant Name | Role | Phone | [...] Medication Refill; | | 2018 | | [facility] | [address] | Medication Refill | | | | MEDICAL CLINIC [address] | [facility] [place] [place] [address] | | | | [address] [place], | [phone] | | | | | [place] [address] | | | | | | [phone] | | | +--------+--------+ + + + [...] | | | | | [place] [address] | | | | | | [phone] | | | | | | | | | | | | Julia Fisher, | | | | | | PT | | +--------+ + + + + | 02/18/ | Appointment | Rehabilitation | Erika Ernst, | | | 2019 | | | DO [address] [place] | | | | | | [place] [address] | | | | | | [phone] | | | | | | | | | | | | [facility] OT | | +--------+ + + + + | 02/25/ | Office | Primary Care | Erika Ernst, | | | 2019 | Visit | | DO [address] [place] | | | | | | [place] [address] | | | | | | [phone] | | | | | | | [...] | | | | | [place] [address] | | | | | | [phone] | | | | | | | | +--------+ + + + + | 02/27/ | Appointment | Radiology | Dhara, | | | 2019 | | | [address] | | | | | | [address]TH [facility], | | | | | | [place] [address] | | | | | | [phone] | | | | | | | [...] [place] | | | | | | [place] [address] | | | | | | [phone] | | | | | | | [...] [place] | | | | | | [address] | | | | | | [phone] | | | | | | | [...] | | | | | [place] [address] | | | | | | [phone] | | | | | | | | | | | | Azul Yeboah, | | | | | | MD [address] | | | | | | [place] | | | | | | [place] [address] | | | | | | [phone] | | | | | | | [...] | | | | | | [place] [address] | | | | | | [phone] | | | | | | | | +--------+ + + + + documented as of this encounter Visit Diagnoses Not on filedocumented in this encounter"
--- OUTSIDE RECORDS SUMMARY | ~2020-02-18 | XMS | Encounter Summary ---
Demographics + + + | Address | [address] | | | [place] [address] | + + + | Home Phone [...] Team Providers + +------+ + | Care Tipple Worker Name | Role | Phone | + +------+ + PCP | Unavailable | + +------+ + Encounter Details +--------+ + + + + | Date | Type | Department | Care Team | Description | +--------+ + + + + | 06/22/ | [facility] | [facility] | Conversion | | | 2011 | Encounter | [facility] | Transaction, | | | | | MEDICAL CLINIC [address] | Provider Unknown | | | | | 4TH [facility], | [phone] | | | | | [place] [address] | | | | | | [phone] | | | +--------+ + + + [...] | | | | | [place] [address] | | | | | | [phone] | | | | | | | | | | | | Julia Fisher, | | | | | | PT | | +--------+ + + + + | 02/18/ | Appointment | Rehabilitation | Erika Ernst, | | | 2019 | | | DO [address] [place] | | | | | | [place] [address] | | | | | | [phone] | | | | | | | | | | | | [facility] | | +--------+ + + + + | 02/25/ | Office | Primary Care | Erika Ernst, | | | 2019 | Visit | | DO [address] [place] | | | | | | [place] [address] | | | | | | [phone] | | | | | | | [...] | | | | | [place] [address] | | | | | | [phone] | | | | | | | | +--------+ + + + + | 02/27/ | Appointment | Radiology | Dhara, | | | 2019 | | | [address] | | | | | | [facility] | | | | | | [place] [address] | | | | | | [phone] | | | | | | | [...] [place] | | | | | | [place] [address] | | | | | | [phone] | | | | | | | [...] [place] | | | | | | [address] | | | | | | [phone] | | | | | | | [...] | | | | | [place] [address] | | | | | | [phone] | | | | | | | | | | | | Azul Yeboah, | | | | | | MD [address] | | | | | | [place] | | | | | | [place] [address] | | | | | | [phone] | | | | | | | [...] | | | | | | [place] [address] | | | | | | [phone] | | | | | | | | +--------+ + + + + documented as of this encounter Visit Diagnoses Not on filedocumented in this encounter"
--- OUTSIDE RECORDS SUMMARY | ~2020-02-18 | XMS | Encounter Summary ---
Demographics + + + | Address | [address] | | | [place] [address] | + + + | Home Phone [...] | [facility] | | | [...] Team Providers + +------+ + | Care Combination Welder Apprentice Name | Role | Phone | [...] | MONITOR - [address] | [place] | [address] | | | | | [place] | [address] | Phone: | | | | | | Phone: | [phone] | | | | | | [phone] | Fax: | | | | | | Fax: | [phone] | | | | | | [phone] | | +--------+--------+ + + + + [...] | MEDICINE [address] | [place] [address] | | | | | DR [place], [place] | [phone] | | | | | [address] | | | | | | [phone] | | | +--------+ + + + [...] | 11/26/19 | | | (VITAMIN D3) 40217 | mouth Once a week | tablet [...] days. Neyda rich will mail recorder to [employer] when done to be scanned.Electronically susana d [...] | | | | | [place] [address] | | | | | | [phone] | | | | | | | | | | | | Julia Fisher, | | | | | | PT | | +--------+ + + + + | 02/18/ | Appointment | Rehabilitation | Erika Ersnt, | | | 2019 | | | DO [address] [place] | | | | | | [place] [address] | | | | | | [phone] | | | | | | | | | | | | [facility] | | +--------+ + + + + | 02/25/ | Office | Primary Care | Erika Ernst, | | | 2019 | Visit | | DO [address] [place] | | | | | | [place] [address] | | | | | | [phone] | | | | | | | [...] | | | | | [place] [address] | | | | | | [phone] | | | | | | | | +--------+ + + + + | 02/27/ | Appointment | Radiology | Dhara, | | | 2019 | | | [address]WA[address] | | | | [address] [place], | | | | | | [place] [address] | | | | | | [phone] | | | | | | | | +--------+ + + + + | 03/04/ | Appointment | Rehabilitation | [facility] OT | | | 2019 | | | | | +--------+ + + + + | 03/09/ | Office | Orthopedic Surgery | Jeffrey Gandhi, | | 2019 | Visit | | [place] [address] | | | | | | [place] [address] | | | | | | [phone] | | | | | | | [...] 2019 | Visit | Gynecology | DO [address] | | | | | [address] | | | | | | [place], [place] | | | | | | [address] | | | | | | [phone] | | | | | | | [...] [address] | | | | | | [phone] | | | | | | | | | | | | Azul Yeboah, | | | | | | MD [address] | | | | | | [place] | | | | | | [place] [address] | | | | | | [phone] | | | | | | | [...] | | | | | | [place] [address] | | | | | | [phone] | | | | | | | [...]
--- OUTSIDE RECORDS SUMMARY | ~2020-02-18 | XMS | Encounter Summary ---
Demographics + + + | Address | [address] | | | [place] [address] | + + + | Home Phone [...] Team Providers + +------+ + | Care Stage Set Up Worker Name | Role | Phone | [...] | Diagnoses | [facility] | | | Services | Surgery | Hand | Erika A, DO | Orthopedic | | | Required | | injury, | [address] | [address] | | | | | right, | [place], | [place] | | | | | subsequent | [place] [address] | [place], [place] | | | | | encounter | Phone: | [phone] | | | | | Finger pain, | [phone] | Phone: | | | | | right | Fax: | [phone] | | | | | Procedures | [phone] | Fax: | | | | | [place] | | [phone] | +--------+ + + + + + [...] | MEDICAL CLINIC [address] | [place] [address] | (Primary Dx); | | | | [address] [place], | [phone] | Finger pain, right | | | | [place] [address] | | | | | | [phone] | | | +--------+---------+ + + + [...] attention to this issue. 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 No numbness or the [...] injury, right, subsequent encounter AMB [facility] Orth[facility] 2. Finger pain, right AMB Referral to [facility] Orthopedics Plan: Referral to Ortho for [...] | | | | | [place] [address] | | | | | | [phone] | | | | | | | | | | | | Julia Fisher, | | | | | | PT | | +--------+ + + + + | 02/18/ | Appointment | Rehabilitation | Erika Ernst, | | | 2019 | | | DO [address] [place] | | | | | | [place] [address] | | | | | | [phone] | | | | | | | | | | | | [facility] | | +--------+ + + + + | 02/25/ | Office | Primary Care | Erika Ernst, | | | 2019 | Visit | | DO [address] [place] | | | | | | [place] [address] | | | | | | [phone] | | | | | | | [...] | | | | | [place] [address] | | | | | | [phone] | | | | | | | | +--------+ + + + + | 02/27/ | Appointment | Radiology | Dhara, | | | 2019 | | | [address] | | | | | | [address] [place], | | | | | | [place] [address] | | | | | | [phone] | | | | | | | [...] HOSPITAL | | | | | | [place] [address] | | | | | | [phone] | | | | | | | [...] [place] | | | | | | [address] | | | | | | [phone] | | | | | | | [...] | | | | | [place] [address] | | | | | | [phone] | | | | | | | | | | | | Azul Yeboah, | | | | | | [address] | | | | | | [place] | | | | | | [place] [address] | | | | | | [phone] | | | | | | | [...] | | | | | | [place] [address] | | | | | | [phone] | | | | | | | [...]
--- OUTSIDE RECORDS SUMMARY | ~2020-02-18 | XMS | Encounter Summary ---
Demographics + + + | Address | [address] | | | [place] [address] | + + + | Home Phone [...] Team Providers + +------+ + | Care Healthcare Financial Analyst Name | Role | Phone | [...] | | | | Procedures | [place] [address] | [place], [place] | | | | | [place] | Phone: | [address] | | | | | | [phone] | Phone: | | | | | | Fax: | [phone] | | | | | | [phone] | Fax: | | | | | | | [phone] | +--------+ + + + + + Encounter Details +--------+---------+ + + + | Date | Type | Department | Care Team | Description | +--------+---------+ + + + | 08/01/ | Office | [place] [facility] | Anthony Alvarado MD | Multiple thyroid | | 2019 | Visit | [facility] [address] | [address] [place] | nodules; Left | | | | [address] [place] | [place], [place] | thyroid nodule | | | | [place], [place] | [address] | | | | | [address] | [phone] | | | | | [phone] | | | +--------+---------+ + + + [...] Clinic Note For: Andrea Suh 29 y.o. [id number] On 08/01/2019, Andrea Suh was seen by [...] | | | | | [place] [address] | | | | | | [phone] | | | | | | | [...] [address] | | | | | | [phone] | | | | | | | | | | | | Genesis Ayon, OT | | +--------+ + + + + | 02/25/ | Office | Primary Care | Erika Ernst, | | | 2019 | Visit | | DO [address] [place] | | | | | | [place] [address] | | | | | | [phone] | | | | | | | [...] | | | | | [place] [address] | | | | | | [phone] | | | | | | | | +--------+ + + + + | 02/27/ | Appointment | Radiology | Dhara, | | | 2019 | | | DWAINE Rsos [address] | | | | | | [address] [place], | | | | | | [place] [address] | | | | | | [phone] | | | | | | | | +--------+ + + + + | 03/04/ | Appointment | Rehabilitation | [facility] OT | | 2019 | | | | | +--------+ + + + + | 03/09/ | Office | Orthopedic Surgery | Jeffrey Gandhi, | | 2019 | Visit | | [address] | | | | | | [place] [address] | | | | | | [phone] | | | | | | | [...] [place] | | | | | | [address] | | | | | | [phone] | | | | | | | [...] | | | | | [place] [address] | | | | | | [phone] | | | | | | | | | | | | Azul Yeboah, | | | | | | [address] | | | | | | [place] | | | | | | [place] [address] | | | | | | [phone] | | | | | | | [...] | | | | | | [place] [address] | | | | | | [phone] | | | | | | | [...]
--- OUTSIDE RECORDS SUMMARY | ~2020-02-18 | XMS | Clinical Summary ---
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 | 2019 | on | | RN | screening ) | +--------+ + + + + | 12/22/ | Telephone | Primary Care | Betsy Ernst, | Other (screening | 2019 | | | DO | questions covid-19) | +--------+ + + + + | 12/19/ | Refill | Primary Care | Betsy Ernst, | Medication Refill | | 2019 | | | DO | | +--------+ + + + + | 12/19/ | Telephone | Primary Care | Betsy Ernst, | Medication Related | | 2019 | | | DO | | +--------+ + + + + | 12/19/ | Telephone | Primary Care | Betsy Ernst, | Fever | | 2019 | | | DO | | +--------+ + + + + | 12/18/ | Telephone | Primary Care | Betsy Ernst, | Paperwork | | 2019 | | | DO | | +--------+ + + + + | 12/17/ | Telephone | Primary Care | Betsy Ernst, | Fever; Fever (FYI: | | 2019 | | | DO | pt had a fever again | | | | | | this am) | +--------+ + + + + | 12/16/ | Telephone | Primary Care | Betsy Ernst, | Medication Related | | 2019 | | | DO | | +--------+ + + + + | 12/15/ | Telephone | Primary Care | Betsy Ernst, | Other | | 2019 | | | DO | | +--------+ + + + + | 12/15/ | Telephone | Obstetrics and | Stephanie Avery | Advice Only | | 2019 | | Gynecology | DO Radha | | +--------+ + + + + | 12/15/ | Telephone | Podiatry | Stephanie Mittal DPM | Other (referral) | | 2019 | | | | | +--------+ + + + + | 12/13/ | Telephone | Immediate Care | Britt Torres, | Advice Only (ear | | 2019 | | | CC ASSIGNMENT MANAGER | pain ) | +--------+ + + + + | 12/12/ | Telephone | Rehabilitation | Usha Rodriguez | Results, Imaging | | 2019 | | | MD Precious | | +--------+ + + + + | 12/11/ | Office | Primary Care | Harvey, | Otalgia of both ears | | 2019 | Visit | | DWAINE Niño | (Primary Dx); Dry | | | | | | cough | +--------+ + + + + | 12/11/ | Telephone | Primary Care | Betsy Ernst, | Advice Only (COVID | | 2019 | | | DO | 19) | +--------+ + + + + | 12/11/ | Telephone | Obstetrics and | Stephanie Avery | Advice Only | 2019 | | Gynecology | Radha, DO | | +--------+ + + + + | 12/10/ | Hospital | Rehabilitation | Betsy Ernst, | Sprain of deltoid | 2019 | Encounter | | DO Mariana, | ligament of right | | | | | Julia Chapin PTA | ankle, subsequent | | | | | | encounter (Primary | | | | | | Dx) | +--------+ + + + + | 12/10/ | Telephone | Primary Care | Betsy Ernst, | Referral | 2019 | | | DO | | +--------+ + + + + | 12/08/ | Hospital | Radiology | Usha Rodriguez | Vasquezs | 2019 | Encounter | | MD Precious | tenosynovitis, | | | | | | right; Place of | | | | | | occurrence, | | | | | | industrial places | | | | | | and premises | +--------+ + + + + | 12/08/ | Telephone | Primary Care | Betsy Ernst, | Advice Only; Ear | | 2019 | | | DO | Pain (Pt calling | | | | | | again re: still | | | | | | waiting for a call | | | | | | back from [facility] about | | | | | | left ear pain) | +--------+ + + + + | 12/05/ | Refill | Primary Care | Betsy Ernst, | Medication Refill | | 2019 | | | DO | | +--------+ + + + + | 12/04/ | Refill | Primary Care | Betsy Ernst, | Medication Refill | | 2019 | | | DO | | +--------+ + + + + | 12/04/ | Telephone | Primary Care | Betsy Ernst, | Other (Pt request | 2019 | | | DO | call back today re: | | | | | | suture site on neck | | | | | | came open) | +--------+ + + + + | 12/03/ | Hospital | Rehabilitation | Betsy Ernst, | Sprain of deltoid | 2019 | Encounter | | DO Mariana, | ligament of right | | | | | Julia Chapin 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 REFINERY 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 | ankle, subsequent | | | | | | encounter (Primary | | | | | | Dx) | +--------+ + + + + | 12/02/ | Orders Only | Primary Care | Betsy Ernst, | Iron deficiency | 2019 | | | DO | (Primary Dx) | +--------+ + + + + | 12/01/ | Office | Immediate Care | Alem Guerrero, | Viral URI with cough | 2019 | Visit | | 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 | (Primary Dx); Acute | | | | | | noninfective otitis | | | | | | externa of both | | | | | | ears, unspecified | | | | | | type | +--------+ + + + + | 12/01/ | Telephone | Primary Care | Betsy Ernst, | Lab Order | | 2019 | | | DO | | +--------+ + + + + | 12/01/ | Telephone | Primary Care | Betsy Ernst, | Breathing Problem | | 2019 | | | DO | (Pt's cold symptoms | | | | | | not better) | +--------+ + + + + | 11/28/ | Office | Otolaryngology | Anthony Alvarado MD | Deviated nasal | | 2019 | Visit | | | septum (Primary Dx); | | | | | | Non-seasonal | | | | | | allergic rhinitis | | | | | | due to pollen; | | | | | | Multiple thyroid | | | | | | nodules; Hypertrophy | | | | | | of nasal turbinates | +--------+ + + + + | 11/26/ | Office | Immediate Care | Alem Guerrero, | Viral URI with cough | | 2019 | Visit | | 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 | (Primary Dx); Sore | | | | | | throat | +--------+ + + + + | 11/25/ | Office | Rehabilitation | Usha Rodriguez | [facility] | 2019 | Visit | | MD Precious | tenosynovitis, right | | | | | | (Primary Dx); Place | | | | | | of occurrence, | | | | | | industrial places | | | | | | and premises | +--------+ + + + + | 11/21/ | Hospital | Rehabilitation | Betsy Ernst | Sprain of deltoid | 2019 | Encounter | | Julia Ackerman | ligament of right | | | | | M, PT | ankle, subsequent | | | | | | encounter | +--------+ + + + + | 11/21/ | Refill | Primary Care | Betsy Ernst, | Medication Refill | | 2019 | | | DO | | +--------+ + + + + | 11/20/ | Refill | Immediate Care | Haseeb Mcguire RN | Medication Refill | | 2019 | | | | | +--------+ + + + + from Last 3 Months Immunizations + + + + | Name | Administration Dates | Next Due | + + + + | DTP (PED) | 03/06/1991, 02/04/1991, 1990, | | | | 1990 | | + + + + | HEP A, 2 DOSE | 08/05/2019, 01/30/2019 | | | (ADULT) | | | + + + + | HEP B, 3 DOSE | 09/15/2015, 05/11/2015, 01/26/2015 | | | (ADULT) | | | + + + + | HIB HBOC CONJUGATE, | 02/01/1992, 03/06/1991, 1990 | | | 4 DOSE (PED) | | | + + + + | HPV, QUADRIVALENT, 3 | 09/21/2007, 05/21/2007, 02/23/2007 | | | DOSE (ADOL/ADULT) | | | + + + + | INFLUENZA PF 4Y OR | 05/15/2019 | | | >,QUAD DERIVED FROM | | | | TISS-CULT | | | + + + + | INFLUENZA PF | 05/16/2018, 05/16/2017, 06/09/2015, | | | QUAD(PED/ADOL/ADULT) | 06/05/2014 | | | ,PSKT or VIAL | | | + + + + | INFLUENZA PF | 05/15/2019, 06/06/2016 | | | TRIVALENT(PED/ADOL/A | | | | DULT), PSKT | | | + + + + | INFLUENZA TRIV | 05/16/2017 | | | W/PRES(PED/ADOL/ADUL | | | | T),MULTIDOSE | | | + + + + | INFLUENZA, [id number], | 09/04/2009 | | | INACTIVATED | | | + + + + | INFLUENZA, | 05/16/2019 | | | UNSPECIFIED | | | | FORMULATION | | | + + + + | MMR, 2 DOSE | 01/30/2019, 07/09/1991 | | | (PED/ADULT) | | | + + + + | PNEUMOCOCCAL | 06/22/2016 | | | CONJUGATE 13-VALENT | | | | (PCV13) | | | + + + + | PNEUMOCOCCAL | 07/06/2013 | | | POLYSACCHARIDE | | | | 23-VALENT (PPSV23) | | | + + + + | POLIOVIRUS,OPV | 02/01/1992, 1990, 1990 | | | (LIVE) | | | + + + + | TDAP, (ADOL/ADULT) | 05/08/2014, 10/02/2012 | | + + + + | TYPHOID, INACTIVATED | 01/30/2019 | | | H-P, SQ OR ID | | | + + + + | TYPHOID, VICPS | 01/30/2019 | | + + + + Family History + + +------+ + | Medical History | Relation | Name | Comments | + + +------+ + | Hypertension | Father | | | + + +------+ + | Other (see comment) | Father | | arrhymthmia | + + +------+ + | Heart attack | Maternal | | SD | | | Aunt | | | + + +------+ + | Breast cancer | Maternal | | | | | Grandmoth | | | | | er | | | + + +------+ + | Hypertension | Maternal | | | | | Uncle | | | + + +------+ + | Diabetes | Mother | | | + + +------+ + | Heart disease | Mother | | | + + +------+ + | Other (see comment) | Mother | | gallbladder disease | + + +------+ + | Breast cancer | Sister | | | + + +------+ + + +------+--------+ + | Relation | Name | Status | Comments | + +------+--------+ + | Father | | Alive | | + +------+--------+ + | Maternal Aunt | | | | + +------+--------+ + | Maternal Grandmother | | | | + +------+--------+ + | Maternal Uncle | | | | + +------+--------+ + | Mother | | Alive | | + +------+--------+ + | Sister | | | | + +------+--------+ + [...] recent travel history available. | + + Last Filed Vital Signs + + + + + | Vital Sign | Reading | Time Taken | Comments | + + + + + | Blood Pressure | 110/88 | 02/10/2020 8:38 AM | | | | | PDT | | + + + + + | Pulse | 94 | 02/10/2020 8:38 AM | | | | | PDT | | + + + + + | Temperature | 37.3 C (99.1 F) | 02/10/2020 8:38 AM | | | | | PDT | | + + + + + | Respiratory Rate | 16 | 02/10/2020 8:38 AM | | | | | PDT | | + + + + + | Oxygen Saturation | 97% | 02/10/2020 8:38 AM | | | | | PDT | | + + + + + | Inhaled Oxygen | - | - | | | Concentration | | | | + + + + + | Weight | 156.9 kg (346 lb) | 02/10/2020 8:38 AM | | | | | PDT | | + + + + + | Height | 177.8 cm (5' 10") | 02/10/2020 8:38 AM | | | | | PDT | | + + + + + | Body Mass Index | 49.65 | 02/10/2020 8:38 AM | | | | | PDT | | + + + + + Plan of Treatment +--------+ + + + + | Date | Type | Specialty | Care Team | Description | +--------+ + + + + | 02/18/ | Appointment | Rehabilitation | Betsy Ernst, | | | 2019 | | | DO [address] [place] | | | | | | [place] [address] | | | | | | [phone] | | | | | | | | | | | | Julia Fisher, | | | | | | PT | | +--------+ + + + + | 02/18/ | Appointment | Rehabilitation | Betsy Ernst, | | | 2019 | | | DO [address] | | | | | | [place] [address] | | | | | | [phone] | | | | | | | | | | | | Genesis Ayon OT | | +--------+ + + + + | 02/25/ | Office | Primary Care | Betsy Ernst, | | | 2019 | Visit | | DO [address] | | | | | | [place] [address] | | | | | | [phone] | | | | | | | [...] | | | | | [place] [address] | | | | | | [phone] | | | | | | | | +--------+ + + + + | 02/27/ | Appointment | Radiology | Dhara, | | | 2019 | | | DWAINE Ross [address] | | | | | | [address] [facility], | | | | | | [place] [address] | | | | | | [phone] | | | | | | | | +--------+ + + + + | 03/04/ | Appointment | Rehabilitation | Genesis Ayon OT | | | 2019 | | | | | +--------+ + + + + | 03/09/ | Office | Orthopedic Surgery | Jeffrey Gandhi, | | | 2019 | Visit | | [address] | | | | | | [place] [address] | | | | | | [phone] | | | | | | | [...] Obstetrics and | Stephanie Avery | | 2019 | Visit | Gynecology | DO Jackelyn Garcia | | | | | | [address] | | | | | | [place] | | | | | | [address] | | | | | | [phone] | | | | | | | | +--------+ + + + + | 03/25/ | Appointment | Rehabilitation | Genesis Ayon OT | | | 2019 | | | | | +--------+ + + + + | 04/08/ | Office | Neurology | Betsy Ernst, | | | 2019 | Visit | | DO [address] | | | | | | [place] [address] | | | | | | [phone] | | | | | | | | | | | | Azul Yeboah, | | | | | | MD [address] | | | | | | [address] [address] [place] | | | | | | [place] [address] | | | | | | [phone] | | | | | | | [...] | | | | | | [place] [address] | | | | | | [phone] | | | | | | | | +--------+ + + + + + + + + + | Health Maintenance | Due Date | Last Done | Comments | + + + + + | Cervical Cancer | | 05/21/2013 | | | Screening (Pap) | 6 | | | + + + + + | Primary Care | | 02/10/2020, 01/31/2020, | | | Outreach (Moderate | 1 | 01/17/2020, Additional history | | | Risk) | | exists | | + + + + + | Vaccine: | | 05/08/2014, 10/02/2012, | | | Dtap/Tdap/Td (6 - | 4 | 03/06/1991, Additional history | | | Td) | | exists | | + + + + + | Vaccine: | Completed | 06/22/2016, 07/06/2013 | | | Pneumococcal 19-64 | | | | + + + + + | Vaccine: Influenza | Completed | 05/16/2019, 05/15/2019, | | | | | 05/15/2019, Additional history | | | | | exists | | + + + + + Implants + +------+------+ +--------+--------+--------+ | Implanted | Type | Area | Manufacture | Device | Shelf | Model | | | | | r | | Expira | / | | | | | | Identi | tion | Serial | | | | | | fier | Date | / Lot | + +------+------+ +--------+--------+--------+ | Ultrafix MicromiteImplanted: | | | | | 11/25/ | [id number] | | Qty: 3 on 03/20/2019 by | | | | | 2023 | / | | Yari Noriega MD at [facility] | | | | | | /[id number] | | [facility] | | | | | | | + +------+------+ +--------+--------+--------+ Procedures + +--------+ + + + | Procedure Name | Priori | Date/Time | Associated Diagnosis | Comments | | | ty | | | | + +--------+ + + + | CBC WITH | Routin | 01/31/2020 | Asthma due to | Results for this | | DIFFERENTIAL | e | 4:44 PM | environmental | procedure are in the | | | | PDT | allergies | results section. | + +--------+ + + + | T4, FREE | Routin | 01/13/2020 | Menorrhagia with | Results for this | | | e | 4:03 PM | irregular cycle | procedure are in the | | | | PDT | Hypothyroidism, | results section. | | | | | unspecified type | | + +--------+ + + + | TSH | Routin | 01/13/2020 | Menorrhagia with | Results for this | | | e | 4:03 PM | irregular cycle | procedure are in the | | | | PDT | Hypothyroidism, | results section. | | | | | unspecified type | | + +--------+ + + + | XR ANKLE RIGHT 3 + | Routin | 01/11/2020 | Acute right ankle | Results for this | | VW | e | 6:03 PM | pain | procedure are in the | | | | PDT | | results section. | + +--------+ + + + | URINALYSIS WITH | Routin | 01/02/2020 | Dysuria | Results for this | | MICROSCOPIC WITH | e | 1:37 PM | | procedure are in the [...] + | ED INFORMATION | Routin | 12/26/2019 | | | | EXCHANGE | e | 8:47 AM | | | | | | PDT | | | + +--------+ + + + +---+--------+ | | | | | Proced | | | ure | | | Note - | | | Mitchel, | | | Lab In | | | | | | Hlseve | | | n - | | | 12/25/ | | | 2019 | | | 8:48 | | | AM PDT | | | | | | [...] | | | FICATI | | | ON?03/ | | | | | | 0 | | | 08:46? | | | NOBLIT | | | , | | | ZENY | | | C?MRN: | | | | | | [id number] | | | [id number] | | | riteri | | | [...] MED | | | | | | 2020-0 | | | 2-10 | | | GABAPE | | | NTIN | | | 100 MG | | | | | | CAPSUL | | | E 360 | | | BRAYDON | | | | | | ESLING | | | ER, CITY ENGINEER | | | 0 | | | 2019-1 | | | 1-15 | | | TRAMAD | | | OL HCL | | | 50 MG | | | | | | TABLET | | | 20 | | | MAURISIO | | | | | | KORINE | | | K, MD | | | 4 20 | | | 2019-0 | | | 8-26 | | | TRAMAD | | | OL HCL | | | 50 MG | | | | | | TABLET | | | 28 | | | BETSY | | | CHAD | | | , DO 4 | | | 20 | | | 2019-0 | | | 8-08 | | | MUCINE | | | X D ER | | | | | | 600-60 | | | MG | | | TABLET | | | 14 | | | DIPIKA | | | VANI, | | | CITY ENGINEER 0 | | | | | | 2019-0 [...] | | | 21.429 | | | Rx | | | Summar | | | yMetri | | | c | | | Count | | | CS | | | II-V | | | Rx 4 | | | CS-II | | | Rx 0 | | | Quanti | | | ty | | | Dispen | | | sed | | | 482 | | | Unique | | | | | | Prescr | | | ibers | | | 6 | | | Unique | | | | | | Pharma | | | cies 2 | | | | | | Benzos | | | 0 | | | Opioid | | | s 4 | | | Long | | | [...] | | al 8 | | | [facility] | | | al 1 | | | Total | | | 11 | | | Note: | | | [...] | | | Summar | | | yShowi | | | ng 10 | | | most | | | recent | | | | | | visits | | | out | | | of 11 | | | in the | | | past | | | 12 | | | months | | | Date | | | Facili | | | ty | | | City | | | State | | | Type | | | Diagno | | | ses or | | | Chief | | | | | | Compla | | | int | | | Mar | | | 26, | | | 2020 | | | [place] | | | [place] | [place] | | | Emerge | | | ncy | | | | | | possib | | | le | | | concus | | | tunde | | | Dec | | | 30, | | | 2019 | | | [facility] | | | [place] | | [place] | | | Emerge | | | ncy | | | | | | Lacera | | | tion | | | withou | | | t | | | foreig | | | n | | | body, | | | right | | | lower | | | leg, | | | initia | | | l enc | | | Dec | | | 9, | | | 2019 | | | [place] | | | [place] | [place] | [place] | | | [place] | | | Emerge | | | ncy | | | | | | diffic | | | ulty | | | breath | | | ing | | | | | | Shortn | | | ess of | | | | | | Breath | | | | | | Other | | | diseas | | | es of | | | pharyn | | | x Nov | | | 21, | | [...] | | | AGED | | | Recent | | | [...] | | | , | | | BETSY | | | , DO | | | Family | | [...] | | | (541) | | | [phone] | | | 39 | | | (541) | | | 429-66 | | | 12 | | | Curren | | | t | | | CHAD | | | , | | | BETSY | | | Primar | | | [...] | | | /notif | | | y/[id number] | | | 5730-5 | | | [id number] | | | [id number]-[id number] | | | [id number] | | | [id number] | | | 6e | | | PLEASE | | | [...] [email or web address] | | | m | +---+--------+ + +--------+ + + + | URINALYSIS WITH | Routin | 12/25/2019 | Dysuria | Results for this | | MICROSCOPIC WITH | e | 12:56 PM | | procedure are in the | | CULTURE IF INDICATED | | PDT | | results section. | + +--------+ + + + | CBC WITH | Routin | 12/24/2019 | Iron deficiency | Results for this | | DIFFERENTIAL | e | 1:51 PM | | procedure are in the | | | | PDT | | results section. | + +--------+ + + + | IRON AND IRON | Routin | 12/24/2019 | Iron deficiency | Results for this | | BINDING CAPACITY | e | 1:51 PM | | procedure are in the | | | | PDT | | results section. | + +--------+ + + + | FERRITIN | Routin | 12/24/2019 | Iron deficiency | Results for this | | | e | 1:51 PM | | procedure are in the | | | | PDT | | results section. | + +--------+ + + + | MRI WRIST RIGHT WO | Routin | 12/09/2019 | [facility] | Results for this | | CONTRAST | e | 7:08 PM | tenosynovitis, right | procedure are in the | | | | PDT | Place of | results section. | | | | | occurrence, | | | | | | industrial places | | | | | | and premises | | + +--------+ + + + | PARISH, STREP A, | Routin | 11/26/2019 | Sore throat | Results for this | | THROAT | e | 5:45 PM | | procedure are in the | | | | PST | | results section. | + +--------+ + + + | POCT RAPID STREP A | Routin | 11/26/2019 | Sore throat | Results for this | | SCREEN | e | 5:44 PM | | procedure are in the | | | | PST | | results section. | + +--------+ + + + from Last 3 Months Results CBC with Differential (01/31/2020 4:44 PM PDT)Only the most recent of 2 results within the time period is included. + +---------+ + + + | Component [...] + + | [place] [facility] | [address] | [place] | [phone] | | [facility] | | [address] | | | [facility] | [...] + + | [place] [facility] | [address] | [place] | [phone] | | [facility] | | [address] | | + + + + + T4, Free (01/13/2020 4:03 PM PDT) + [...] + + | [facility] [facility] | [address] | [place], [place] | [phone] | | [facility] | | [address] | | + + + + + XR Ankle Right 3 + Vw (01/11/2020 [...] density.IMPRESSION: No acute process.Dictated by: Braydon | Tank Pryoram | | | |COMPARISON STUDY: | |None [...] with Culture if Indicated (01/02/2020 1:37 PM PDT)Only the mos t recent of 2 results within the time period is included. + + + + + + | [...] - 1.030 | [place] | | | [place], | | | [facility] | | | [...] + + | [place] [facility] | [address] | [place], [place] | [phone] | | [facility] | | [address] | | | [facility]ICAL [facility] LAB | | | | + + + + + LABS - EXTERNAL SCAN (01/01/2020 12:00 AM PDT) + + + | Narrative | Performed At | + + + | Ordered by an | | | unspecified provider. | | + + + Iron and Iron Binding Capacity (12/24/2019 1:51 PM PDT) + +-------+ + + + | Component | Value | Ref Range | Performed | Pathologist | | | | | At | Signature | + +-------+ + + + | Iron | 60 | 50 - 170 ug/dL | [facility] | | | | | | [facility] | | | [facility] | | | | | | [facility]ATORY | | + +-------+ + + + | TIBC | 327 | 250 - 450 ug/dL | [place] | | | | | | [facility] | | | | | | [facility] | | | | | | LABORATORY | | + +-------+ + + + | Iron | 18 | 15 - 50 % | [place] [...] + + | [place] [facility] | [address] | [place] | [phone] | | H[facility]ITAL [facility] | | [address] | | + + + + + Ferritin (12/24/2019 1:51 PM PDT) + +-------+ + + + | Component | Value | Ref Range | Performed | Pathologist | | | | | At | Signature | + +-------+ + + + | Ferritin | 67.9 | 6.2 - 137.0 | [place] | [...] + + | [place] [facility] | [address] | [place] | [phone] | | [facility] | | [address] | | + + + + + MRI Wrist Right wo Contrast (12/09/2019 7:08 [...] | | | + +---------+ + + Culture, Strep A, Throat (11/26/2019 5:45 PM PST) + + + + + + | Component | Value | Ref Range | Performed | Pathologist | | | | | At | Signature | + + + + + + | Culture | No Group A Streptococcus | | [place] | | | | isolated | | [facility] | | | | [...] + + | [facility] [facility] | [address] | [place] | [phone] | | [facility] | | [address] | | + + + + + POCT Rapid Strep A Screen (11/26/2019 5:44 PM PST) + + + + + [...] + | Internal QC | Acceptable | Acceptable | | | + + + + [...] + | Body Fluid | + + from Last 3 Months Insurance + +--------+ +--------+ + +--------+ | Payer | Benefi | Subscriber | Effect | Phone | Address | Type | | | t Plan | ID | junior | | | | | | / | | Dates | | | | | | Group | | | | | | + +--------+ +--------+ + +--------+ | [employer] | SAIF | [id number] | [phone] | Indemn | | | WC | | 018-Pr | 5 | | ity | | | | | esent | | | | + +--------+ +--------+ + +--------+ | [employer] | [employer] | [id number] | | [phone] | | Indemn | | | WC | | 019-Pr | 5 | | ity | | | | | esent | | | | + +--------+ +--------+ + +--------+ | [employer] | [employer]IF | [id number] | | [phone] | | PPO | | | MAJORI | | 018-Pr | 5 | | | | | S MCO | | esent | | | | + +--------+ +--------+ + +--------+ | [employer] | SAIF | [id number] | | [phone] | | Indemn | | | WC | | 018-Pr | 5 | | ity | | | | | esent | | | | + +--------+ +--------+ + +--------+ | [employer] | [employer] | [id number] | 10/02/19 | [phone] | [address] | PPO | | | HEALTH | | 18-Pre | 9 | [phone] | | | | | | sent | | [place], | | | | [place] | | | | [place] [address] | | | | [place] | | | | | | + +--------+ +--------+ + +--------+ | [facility] | PHP | [id number] | 10/02/19 | [phone] | | PPO | | PLAN | PERSON | | 20-Pre | 5 | | | | | [place] | | sent | | | | | | OPEN | | | | | | | | OPTION | | | | | | + +--------+ +--------+ + +--------+ | [facility] | PHP | [id number] | 10/02/19 | [phone] | | PPO | | PLAN | PERSON | | 20-Pre | 5 | | | | | [place] | | sent | | | | | | OPEN | | | | | | | | OPTION | | | | | | + +--------+ +--------+ + +--------+ + +--------+ +--------+ + + | Guarantor Name | Accoun | Relation to | Date | Phone | Billing Address | | | t Type | Patient | of | | | | | | | | | | + +--------+ +--------+ + + | Zeny Suh | Person | Self [birth year] | [address] | | | al/Fam | | 1989 | [phone] | [place], [place] | | | jayna | | | 6 (Home) | [phone] | | | | | | [phone] | | | | | | | 7 (Work) | | + +--------+ +--------+ + + | Zeny Suh | Person | Self | [birth year] | [address] | | | al/Fam | | 1989 | [phone] | [place] | | | jayna | | | 6 (Home) | [phone] | | | | | | [phone] | | | | | | | 7 (Work) | | + +--------+ +--------+ + + | Zeny Suh | Person | Self | [birth year] | [address] | | | al/Fam | | 1989 | [phone] | [place] | | | jayna | | | 6 (Home) | [address] | + +--------+ +--------+ + + | Zeny Suh | Worker | Self | | | [address] | | | s Comp | | | [phone] | [place], [place] | | | | | | 6 (Home) | [phone] | | | | | | [phone] | | | | | | | 7 (Work) | | + +--------+ +--------+ + + | Zeny Suh | Worker | Self | [birth year] | [address] | | | s Comp | | 1989 | [phone] | [place] | | | | | | 6 (Home) | [address] | | | | | | [phone] | | | | | | | 7 (Work) | | + +--------+ +--------+ + + | Zeny Suh | Worker | Self | [birth year] | | [address] | | | s Comp | | 1989 | [phone] | [place] | | | | | | 6 (Home) | [address] | | | | | | [phone] | | | | | | | 7 (Work) | | + +--------+ +--------+ + + Advance Directives + + + + + | Type | Date Recorded | Patient | Explanation | | | | Fork Operator | | + + + + + | Power of | | | | | Physician/Ophthalmologist | | | | + + + + + | Advance | 02/10/2020 9:17 | | | | Directive | AM | | | + + + + + + + + + + | Code Status | Date | Date | Comments | | | Activated | Inactivated | | + + + + + | Full Code | 03/20/2019 | 03/20/2019 | | | | 11:23 AM | 4:33 PM | | + + + + +
--- OUTSIDE RECORDS SUMMARY | ~2020-02-18 | XMS | Encounter Summary ---
Demographics + + + | Address | [address] | | | [place] [address] | + + + | Home Phone [...] Team Providers + +------+ + | Care Nylon Operator Name | Role | Phone | + +------+ + PCP | Unavailable | + +------+ + Encounter Details +--------+ + + + + | Date | Type | Department | Care Team | Description | +--------+ + + + + | 06/30/ | [facility] [place] [facility] | Denise Mcgregor | | | 2017 | Encounter | [facility] | G, MORTGAGE LOAN COMPUTATION CLERK | | | | | MEDICAL CLIN[facility] [address] | | | | | | [facility] [place], | | | | | | [place] [address] | | | | | | [phone] | | | +--------+ + + + [...] | | | | | [place] [address] | | | | | | [phone] | | | | | | | | | | | | Julia Fisher, | | | | | | PT | | +--------+ + + + + | 02/18/ | Appointment | Rehabilitation | Erika Ernst, | | | 2019 | | | DO [address] | | | | | | [place] [address] | | | | | | [phone] | | | | | | | | | | | | Genesis Ayon OT | | +--------+ + + + + | 02/25/ | Office | Primary Care | Erika Ernst, | | | 2019 | Visit | | DO [address] | | | | | | [place] [address] | | | | | | [phone] | | | | | | | [...] | | | | | [place] [address] | | | | | | [phone] | | | | | | | | +--------+ + + + + | 02/27/ | Appointment | Radiology | Dhara, | | | 2019 | | | [address] | | | | | [address] [place], | | | | | | [place] [address] | | | | | | [phone] | | | | | | | | +--------+ + + + + | 03/04/ | Appointment | Rehabilitation | Genesis Ayon OT | | | 2019 | | | | | +--------+ + + + + | 03/09/ | Office | Orthopedic Surgery | Jeffrey Gandhi, | | | 2019 | Visit | | [place] [address] [facility] | | | | | | [place] [address] | | | | | | [phone] | | | | | | | [...] [place] | | | | | | [address] | | | | | | [phone] | | | | | | | [...] | | | | | [place] [address] | | | | | | [phone] | | | | | | | | | | | | Azul Yeboah, | | | | | | MD [address] | | | | | | [place] | | | | | | [place] [address] | | | | | | [phone] | | | | | | | [...] | | | | | | [place] [address] | | | | | | [phone] | | | | | | | | +--------+ + + + + documented as of this encounter Visit Diagnoses Not on filedocumented in this encounter"
--- OUTSIDE RECORDS SUMMARY | ~2020-02-18 | XMS | Encounter Summary ---
Demographics + + + | Address | [address] | | | [place] [address] | + + + | Home Phone [...] Providers + +------+ + | Care Manufacturing Analyst Name | Role | Phone | + +------+ + PCP | Unavailable | + +------+ + Encounter Details +--------+ + + + + | Date | Type | Department | Care Team | Description | +--------+ + + + + | 01/18/ | [facility] | Spenser Roberts NP | | | 2015 | Encounter | [facility] | [address], | | | | | MEDICAL CLINIC [address] | [place] [address] | | | | | [facility], | [phone] | | | | | [place] [address] | | | | | | [phone] | | | +--------+ + + + [...] | | | | | [place] [address] | | | | | | [phone] | | | | | | | | | | | | Julai Fisher, | | | | | | PT | | +--------+ + + + + | 02/18/ | Appointment | Rehabilitation | Erika Ernst, | | | 2019 | | | DO [address] | | | | | | [place] [address] | | | | | | [phone] | | | | | | | | | | | | Genesis Ayon OT | | +--------+ + + + + | 02/25/ | Office | Primary Care | Erika Ernst, | | | 2019 | Visit | | DO [address] | | | | | | [place] [address] | | | | | | [phone] | | | | | | | [...] | | | | | [place] [address] | | | | | | [phone] | | | | | | | | +--------+ + + + + | 02/27/ | Appointment | Radiology | Dhara, | | | 2019 | | | [address] | | | | | | 4TH [facility], | | | | | | [place] [address] | | | | | | [phone] | | | | | | | | +--------+ + + + + | 03/04/ | Appointment | Rehabilitation | Genesis Ayon OT | | | 2019 | | | | | +--------+ + + + + | 03/09/ | Office | Orthopedic Surgery | Jeffrey Gandhi, | | 2019 | Visit | | [address] | | | | | | [place] [address] | | | | | | [phone] | | | | | | | [...] [place] | | | | | | [address] | | | | | | [phone] | | | | | | | [...] | | | | | [place] [address] | | | | | | [phone] | | | | | | | | | | | | Azul Yeboah, | | | | | | MD [address] | | | | | | [place] | | | | | | [place] [address] | | | | | | [phone] | | | | | | | | +--------+ + + + + | 04/08/ | Appointment | Nutrition | Janel Webster | | | 2019 | | | [place], [place] | | +--------+ + + + + | 05/21/ | Office | Neurology | Dhraa, | | | 2020 | Visit | | [address] | | | | | | [address] [place], | | | | | | [place] [address] | | | | | | [phone] | | | | | | | | +--------+ + + + + documented as of this encounter Visit Diagnoses Not on filedocumented in this encounter"
--- OUTSIDE RECORDS SUMMARY | ~2020-02-18 | XMS | Encounter Summary ---
Demographics + + + | Address | [address] | | | [place] [address] | + + + | Home Phone [...] Providers + +------+ + | Care Grounds Restoration Specialist Name | Role | Phone | [...] Refill | | 2019 | | [facility] | [address] | | | | | MEDICAL CLINIC [address] | [place] [address] | | | | | [address] [place], | [phone] | | | | | [place] [address] | | | | | | [phone] | | | +--------+ + + + [...] | | | | | [place] [address] | | | | | | [phone] | | | | | | | [...] [address] | | | | | | [phone] | | | | | | | | | | | | Genesis Ayon OT | | +--------+ + + + + | 02/25/ | Office | Primary Care | Erika Ernst, | | | 2019 | Visit | | DO [address] | | | | | | [place] [address] | | | | | | [phone] | | | | | | | [...] | | | | | | [place] [address] | | | | | | [phone] | | | | | | | | +--------+ + + + + | 02/27/ | Appointment | Radiology | Dhara, | | | 2019 | | | [address] | | | | | | [address] [place], | | | | | | [place] [address] | | | | | | [phone] | | | | | | | [...] [place] | | | | | | [place] [address] | | | | | | [phone] | | | | | | | [...] [place] | | | | | | [address] | | | | | | [phone] | | | | | | | [...] | | | | | [place] [address] | | | | | | [phone] | | | | | | | | | | | | Azul Yeboah, | | | | | | MD [address] | | | | | | [place] | | | | | | [place] [address] | | | | | | [phone] | | | | | | | [...] | | | | | | [place] [address] | | | | | | [phone] | | | | | | | | +--------+ + + + + documented as of this encounter Visit Diagnoses Not on filedocumented in this encounter"
--- OUTSIDE RECORDS SUMMARY | ~2020-02-18 | XMS | Encounter Summary ---
Demographics + + + | Address | [address] | | | [place] [address] | + + + | Home Phone [...] Team Providers + +------+ + | Care Loss Prevention Leader Name | Role | Phone | + +------+ + | Erika Ernst DO | PCP | | + +------+ + Reason for Visit + + + | Reason | Comments | + + + | Follow-up | BP | + + + Encounter Details +--------+---------+ + + + | Date | Type | Department | Care Team | Description | +--------+---------+ + + + | 08/01/ | Office | [place] [facility] | KleverErika epps, | Essential | | 2018 | Visit | [facility] | DO [address] | hypertension | | | | MEDICAL CLINIC [address] | [place] [address] | (Primary Dx); Acute | | | | [address] [place], | [phone] | recurrent frontal | | | | [place] [address] | | sinusitis | | | | [phone] | | | +--------+---------+ + + + [...] + + + | Blood Pressure | 160/110 | 08/01/2018 3:10 PM | | | | | PDT | | + + + + + | Pulse | 90 | 08/01/2018 3:10 PM | | | | | PDT | | + + + + + | Temperature | - | - | | + + + + + | Respiratory Rate | 16 | 08/01/2018 3:10 PM | | | | | PDT | | + + + + + | Oxygen Saturation | 98% | 08/01/2018 3:10 PM | | | | | PDT | | + + + + + | Inhaled Oxygen | - | - | | | Concentration | | | | + + + + + | Weight | 154.2 kg (340 lb) | 08/01/2018 3:10 PM | | | | | PDT | | + + + + + | Height | 177.8 cm (5' 10") | 08/01/2018 3:10 PM | | | | | PDT | | + + + + + | Body Mass Index | 48.78 | 08/01/2018 3:10 PM | | | | | PDT | | + + + + + documented in this encounter Progress Notes Erika Ernst DO - 08/01/2018 3:00 PM PDTFormatting of this note might be different fro m the original. Subjective: Patient ID: Andrea Suh is a 28 y.o. female. Here to FU on HTN. She started the norvasc but is taking it at noc. BP is still elevated to day. 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 She took leo e cold medicine today also. She feels like she is getting a sinus infection again with sinus frontal pain and pressure and ST. The cold medicine may be elevating BP and med may be wear ing off too soon in the day. She wants to return next week for recheck instead of adding mor e med today. She will continue a low salt diet. (She had wrist surgery recently and her surg abimael is handling the work comp for that since I had never seen her for this injury from last Winter.) Review of Systems Constitutional: Negative. HENT: Positive for congestion, sinus pain, sinus pressure and sore throat. Negative for ear pain, sneezing and tinnitus. Eyes: Negative. Respiratory: Negative. Cardiovascular: Negative. Gastrointestinal: Negative. Neurological: Negative. Psychiatric/Behavioral: Negative. Social History [...] Tape Rash Outpatient Encounter Prescriptions as of 08/01/2018 Medication Sig Dispense Refill amLODIPine (NORVASC) 10 MG tablet Take 1 tablet by mouth Daily. 30 tablet 11 azithromycin (ZITHROMAX) 250 mg tablet Take 2 [...] 5 montelukast (SINGULAIR) 10 mg tablet Take by [...] up to 5 days. 20 tablet 0 VENTOLIN HFA 108 (90 Base) MCG/ACT inhaler INSTILL 2 PUFFS BY MOUTH EVERY 4 TO 6 HOURS NEEDED 18 g 11 No facility-administered encounter medications on file as of 08/01/2018. Objective: BP (!) 160/110 | Pulse 90 | Resp 16 | Ht 1.778 m (5' 10") | Wt (!) 154.2 kg (340 lb) | LMP 07/27/2018 (LMP Unknown) | SpO2 98% | ? No | BMI 48.78 kg/m Physical Exam Constitutional: She is oriented to person, place, and time. She appears well-developed and well-nourished. HENT: Head: Normocephalic and atraumatic. Right Ear: External ear normal. Left Ear: External ear normal. Pain on palpation of the frontal sinus area. Posterior pharynx is red with no exudate. Eyes: Pupils are equal, round, and [...] normal. No respiratory distress. Musculoskeletal: Right wrist sutures intact with no surrounding erythema Lymphadenopathy: She has no cervical adenopathy. Neurological: She is alert and oriented to person, place, and time. No cranial nerve defici t. Skin: Skin is warm and dry. Psychiatric: She has a normal mood and affect. Her behavior is normal. Judgment and thought content normal. Assessment: 1. Essential hypertension 2. Acute recurrent frontal sinusitis Plan: She will start taking her Norvasc in the AM. Limit the cold medicines. Low salt diet. Zpak for the sinus condition. Fu in one week and if BP not controlled then will need to add medic ation documented in this en counter Plan of Treatment +--------+ + + + + | Date | Type | Specialty | Care Team | Description | +--------+ + + + + | 02/18/ | Appointment | Rehabilitation | Erika Ernst, | | | 2019 | | | DO [address] | | | | | | [place] [address] | | | | | | [phone] | | | | | | | | | | | | Julia Fisher, | | | | | | PT | | +--------+ + + + + | 02/18/ | Appointment | Rehabilitation | Erika Ernst, | | | 2019 | | | DO [address] | | | | | | [place] [address] | | | | | | [phone] | | | | | | | | | | | | Genesis Ayon OT | | +--------+ + + + + | 02/25/ | Office | Primary Care | Erika Ernst, | | | 2019 | Visit | | DO [address] | | | | | | [place] [address] | | | | | | [phone] | | | | | | | [...] | | | | | [place] [address] | | | | | | [phone] | | | | | | | | +--------+ + + + + | 02/27/ | Appointment | Radiology | Dahra | | | 2019 | | | [address] | | | | | [address] [place], | | | | | | [place] [address] | | | | | | [phone] | | | | | | | [...] ST | | | | | | [place] [address] | | | | | | [phone] | | | | | | | [...] [place] | | | | | | [address] | | | | | | [phone] | | | | | | | [...] | | | | | [place] [address] | | | | | | [phone] | | | | | | | | | | | | Azul Yeboah, | | | | | | [address] | | | | | | [place] | | | | | | [place] [address] | | | | | | [phone] | | | | | | | [...] | | | | | | [place] [address] | | | | | | [phone] | | | | | | | | +--------+ + + + + documented as of this encounter Visit Diagnoses + + | Diagnosis | + + | Essential hypertension - Primary Unspecified essential hypertension | + + | Acute recurrent frontal sinusitis Acute frontal sinusitis | + + documented in this encounter
--- OUTSIDE RECORDS SUMMARY | ~2020-02-18 | XMS | Encounter Summary ---
Demographics + + + | Address | [address] | | | [place] [address] | + + + | Home Phone [...] Team Providers + +------+ + | Care Sdv Pilot/Navigator/Dds Operator Name | Role | Phone | [...] | | | to excess | [place] [address] | | | | | | calories | Phone: | | | | | | without | [phone] | | | | | | serious | Fax: | | | | | | comorbidity | [phone] | | | | | | with [...] HOSPITAL NUTRITION | DO [address] | hypertension; Morbid | | | | SERVICES [address] | [place] [address] | obesity ([facility]); Body | | | | DR [place], [place] | [phone] | mass index | | | | [address] | | 50.0-59.9, adult | | | | [phone] | Janel Webster, | ([facility]); Dietary | | | | [...] | 04/12/20 | | | (VITAMIN D3) 85386 | mouth Once a week | tablet [...] on the go and travels frequently between [place] and [place] so she often has to eat dinner [...] | | | | | [place] [address] | | | | | | [phone] | | | | | | | | | | | | Julia Fisher, | | | | | | PT | | +--------+ + + + + | 02/18/ | Appointment | Rehabilitation | Erika Ernst, | | | 2019 | | | DO [address] | | | | | | [place] [address] | | | | | | [phone] | | | | | | | | | | | | Genesis Ayon, OT | | +--------+ + + + + | 02/25/ | Office | Primary Care | Erika Ernst, | | | 2019 | Visit | | DO [address] | | | | | | [place] [address] | | | | | | [phone] | | | | | | | [...] | | | | | [place] [address] | | | | | | [phone] | | | | | | | | +--------+ + + + + | 02/27/ | Appointment | Radiology | Dhara, | | | 2019 | | | [address] | | | | | | 4TH [facility], | | | | | | [place] [address] | | | | | | [phone] | | | | | | | | +--------+ + + + + | 03/04/ | Appointment | Rehabilitation | Genesis yAon OT | | | 2019 | | | | | +--------+ + + + + | 03/09/ | Office | Orthopedic Surgery | Jeffrey Gandhi, | | | 2019 | Visit | | [address] [facility] | | | | | | [place] [address] | | | | | | [phone] | | | | | | | [...] [place] | | | | | | [address] | | | | | | [phone] | | | | | | | [...] | | | | | [place] [address] | | | | | | [phone] | | | | | | | | | | | | Azul Yeboah, | | | | | | MD [address] | | | | | | [place] | | | | | | [place] [address] | | | | | | [phone] | | | | | | | [...] | | | | | | [place] [address] | | | | | | [phone] | | | | | | | [...] | | | | 59.9 in adult ([facility]) | | | | | | Essential | | | | | | hypertension | | + + +--------+ + + documented as of this encounter Visit Diagnoses + + | Diagnosis | + + | Essential hypertension Unspecified essential hypertension | + + | Morbid obesity (HCC) Morbid obesity | + + | Body mass index 50.0-59.9, adult ([facility]) Body Mass Index 50.0-59.9, adult | + + | Dietary counseling and surveillance Dietary surveillance and counseling | + + documented in this encounter"
--- OUTSIDE RECORDS SUMMARY | ~2020-02-18 | XMS | Encounter Summary ---
Demographics + + + | Address | [address] | | | [place] [address] | + + + | Home Phone [...] Team Providers + +------+ + | Care Library Helper Name | Role | Phone | [...] | MEDICAL CLINIC [address] | [place] [address] | | | | [address] [place], | [phone] | | | | | [place] [address] | | | | | | [phone] | | | +--------+ + + + [...] | 2019 | | | DO [address] | | | | | | [place] [address] | | | | | | [phone] | | | | | | | | | | | | Julia Fisher, | | | | | | PT | | +--------+ + + + + | 02/18/ | Appointment | Rehabilitation | Erika Ernst, | | | 2019 | | | DO [address] | | | | | | [place] [address] | | | | | | [phone] | | | | | | | | | | | | Genesis Ayon OT | | +--------+ + + + + | 02/25/ | Office | Primary Care | Erika Ernst, | | | 2019 | Visit | | DO [address] | | | | | | [place] [address] | | | | | | [phone] | | | | | | | [...] | | Visit | | [address] | | | | | | [place] [address] | | | | | | [phone] | | | | | | | | +--------+ + + + + | 02/27/ | Appointment | Radiology | Dhara, | | | 2019 | | | [address] | | | | | | 4TH [facility] [place], | | | | | | [place] [address] | | | | | | [phone] | | | | | | | [...] | | | | [place] [address] | | | | | | [phone] | | | | | | | [...] [place] | | | | | | [address] | | | | | | [phone] | | | | | | | [...] | | | | | [place] [address] | | | | | | [phone] | | | | | | | | | | | | Azul Yeboah, | | | | | | MD [address] | | | | | | [place] | | | | | | [place] [address] | | | | | | [phone] | | | | | | | [...] | | | | | | [place] [address] | | | | | | [phone] | | | | | | | | +--------+ + + + + documented as of this encounter Visit Diagnoses Not on filedocumented in this encounter"
--- OUTSIDE RECORDS SUMMARY | ~2020-02-18 | XMS | Encounter Summary ---
Demographics + + + | Address | [address] | | | [place] [address] | + + + | Home Phone [...] Providers + +------+ + | Care Production Support Manager Name | Role | Phone | + +------+ + PCP | Unavailable | + +------+ + Encounter Details +--------+ + + + + | Date | Type | Department | Care Team | Description | +--------+ + + + + | 01/25/ | [facility] | Heiek Rodriguez, | | | 2015 | Encounter | HOSPITAL [facility] | STAFF SONOGRAPHER [address] | | | | | CENTER [address] | [place] | | | | | [place] | [address] | | | | | [address] | | | | | | [phone] | | | +--------+ + + + [...] [address] | | | | | | [phone] | | | | | | | | | | | | Julia Fisher, | | | | | | PT | | +--------+ + + + + | 02/18/ | Appointment | Rehabilitation | Erika Ernst, | | | 2019 | | | DO [address] | | | | | | [place] [address] | | | | | | [phone] | | | | | | | | | | | | Genesis Ayon, OT | | +--------+ + + + + | 02/25/ | Office | Primary Care | Erika Ernst, | | | 2019 | Visit | | DO [address] | | | | | | [place] [address] | | | | | | [phone] | | | | | | | [...] | | | | | [place] [address] | | | | | | [phone] | | | | | | | | +--------+ + + + + | 02/27/ | Appointment | Radiology | Dhara, | | | 2019 | | | [address] | | | | | | 4TH [facility], | | | | | | [place] [address] | | | | | | [phone] | | | | | | | | +--------+ + + + + | 03/04/ | Appointment | Rehabilitation | Genesis Ayon OT | | | 2019 | | | | | +--------+ + + + + | 03/09/ | Office | Orthopedic Surgery | Jeffrey Gandhi, | | 2019 | Visit | | [address] | | | | | | [place] [address] | | | | | | [phone] | | | | | | | [...] [place] | | | | | | [address] | | | | | | [phone] | | | | | | | [...] | | | | | [place] [address] | | | | | | [phone] | | | | | | | | | | | | Azul Yeboah, | | | | | | MD [address] | | | | | | [place] | | | | | | [place] [address] | | | | | | [phone] | | | | | | | [...] | | | | | | [place] [address] | | | | | | [phone] | | | | | | | | +--------+ + + + + documented as of this encounter Visit Diagnoses Not on filedocumented in this encounter"
--- OUTSIDE RECORDS SUMMARY | ~2020-02-18 | XMS | Encounter Summary ---
Demographics + + + | Address | [address] | | | [place] [address] | + + + | Home Phone [...] Team Providers + +------+ + | Care Cylinder Machine Operator Pulp Drier Name | Role | Phone | + +------+ + PCP | Unavailable | + +------+ + Encounter Details +--------+ + + + + | Date | Type | Department | Care Team | Description | +--------+ + + + + | 04/08/ | Hospital | [facility] | Camille Bush | | | 2017 | Encounter | [facility] | [address] | | | | | [facility] [address] | 4th [facility], | | | | | 4TH [facility], | [place] [address] | | | | | [place] [address] | [phone] | | | | | [phone] | | | +--------+ + + + [...] | 0 | 04/08/20 | | | (JOS [facility]ANTON[facility]ER[facility]) | | | | 17 | [...] | | | | | [place] [address] | | | | | | [phone] | | | | | | | | | | | | Julia Fisher, | | | | | | PT | | +--------+ + + + + | 02/18/ | Appointment | Rehabilitation | Erika Ernst, | | | 2019 | | | DO [address] | | | | | | [place] [address] | | | | | | [phone] | | | | | | | | | | | | Genesis Ayon, OT | | +--------+ + + + + | 02/25/ | Office | Primary Care | Erika Ernst, | | | 2019 | Visit | | DO [address] | | | | | | [place] [address] | | | | | | [phone] | | | | | | | [...] | | | | | [place] [address] | | | | | | [phone] | | | | | | | | +--------+ + + + + | 02/27/ | Appointment | Radiology | Dhara, | | | 2019 | | | [address] | | | | | | [address] [place], | | | | | | [place] [address] | | | | | | [phone] | | | | | | | [...] ST | | | | | | [place] [address] | | | | | | [phone] | | | | | | | [...] [place] | | | | | | [address] | | | | | | [phone] | | | | | | | [...] | | | | | [place] [address] | | | | | | [phone] | | | | | | | | | | | | Azul Yeboah, | | | | | | MD [address] | | | | | | [place] | | | | | | [place] [address] | | | | | | [phone] | | | | | | | [...] | | | | | | [place] [address] | | | | | | [phone] | | | | | | | | +--------+ + + + + documented as of this encounter Visit Diagnoses Not on filedocumented in this encounter"
--- OUTSIDE RECORDS SUMMARY | ~2020-02-18 | XMS | Encounter Summary ---
Demographics + + + | Address | [address] | | | [place] [address] | + + + | Home Phone [...] Team Providers + +------+ + | Care Humidifier Operator Name | Role | Phone | [...] | | | [facility]ICAL [facility] [address] | Technical Proposal Writer-Clinical | | | | | [facility] [facility] [place], | | | | | | [place] [address] | | | | | | [phone] | | | +--------+ + + + [...] | | | | | [place] [address] | | | | | | [phone] | | | | | | | | | | | | Julia Fisher, | | | | | | PT | | +--------+ + + + + | 02/18/ | Appointment | Rehabilitation | Erika Ernst, | | | 2019 | | | DO [address] | | | | | | [place] [address] | | | | | | [phone] | | | | | | | | | | | | [facility] | | +--------+ + + + + | 02/25/ | Office | Primary Care | Erika Ernst, | | | 2019 | Visit | | DO [address] | | | | | | [place] [address] | | | | | | [phone] | | | | | | | [...] | | | | | [place] [address] | | | | | | [phone] | | | | | | | | +--------+ + + + + | 02/27/ | Appointment | Radiology | Dhara, | | | 2019 | | | DWA[address] | | | | | | [address] [facility], | | | | | | [place] [address] | | | | | | [phone] | | | | | | | | +--------+ + + + + | 03/04/ | Appointment | Rehabilitation | [facility] | | | 2019 | | | | | +--------+ + + + + | 03/09/ | Office | Orthopedic Surgery | Jeffrey Gandhi, | | | 2019 | Visit | | [address] | | | | | | [place] [address] | | | | | | [phone] | | | | | | | [...] [place] | | | | | | [address] | | | | | | [phone] | | | | | | | [...] | | | | | [place] [address] | | | | | | [phone] | | | | | | | | | | | | Azul Yeboah, | | | | | | MD [address] | | | | | | [address] [place] | | | | | | [place] [address] | | | | | | [phone] | | | | | | | [...] | | | | | | [place] [address] | | | | | | [phone] | | | | | | | | +--------+ + + + + documented as of this encounter Visit Diagnoses Not on filedocumented in this encounter"
--- OUTSIDE RECORDS SUMMARY | ~2020-02-18 | XMS | Encounter Summary ---
Demographics + + + | Address | [address] | | | [place] [address] | + + + | Home Phone [...] Team Providers + +------+ + | Care Integration Analyst Name | Role | Phone [...] | | | | s (de | [place], [place] | [place] [address] | | | | | quervain) | [address] | Phone: | | | | | Pain in | Phone: | [phone] | | | | | right wrist | [phone] | Fax: | | | | | Procedures | Fax: | [phone] | | | | | OT TREAT | [phone] | | +--------+--------+ + + + + [...] | | [address] [place] | [place] [address] | (Primary Dx); Right | | | | [place], [place] | [phone] | wrist pain | | | | [address] | | | | | | [phone] | Nakia Koo OT | | +--------+ [...] | 19 | 9 | | BRACE [id number]) | | | | | | | [...] Koo, OT - 11/06/2018 4:42 PM PST [facility] [address] [place] [address] Occupational Therapy Daily Treatment Note Date: 11/06/2018 [...] wrist but continues to have right wrist, cattle 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 and significant pain (3 [...] in 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, and cattle 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 in the right hand [...] | | | | | [place] [address] | | | | | | [phone] | | | | | | | | | | | | Julia Fisher, | | | | | | PT | | +--------+ + + + + | 02/18/ | Appointment | Rehabilitation | Erika Ernst, | | 2019 | | | DO [address] | | | | | | [place] [address] | | | | | | [phone] | | | | | | | | | | | | Genesis Ayon, OT | | +--------+ + + + + | 02/25/ | Office | Primary Care | Erika Ernst, | | | 2019 | Visit | | DO [address] [place] [address] | | | | | | [place] [address] | | | | | | [phone] | | | | | | | [...] | | | | | [place] [address] | | | | | | [phone] | | | | | | | | +--------+ + + + + | 02/27/ | Appointment | Radiology | Dhara, | | | 2019 | | | [address] | | | | | | [address] [place], | | | | | | [place] [address] | | | | | | [phone] | | | | | | | [...] [place] | | | | | | [place] [address] | | | | | | [phone] | | | | | | | [...] [place] | | | | | | [address] | | | | | | [phone] | | | | | | | [...] | | | | | [place] [address] | | | | | | [phone] | | | | | | | | | | | | Azul Yeboah, | | | | | | MD [address] | | | | | | [place] | | | | | | [place] [address] | | | | | | [phone] | | | | | | | [...] | | | | | | [place] [address] | | | | | | [phone] | | | | | | | | +--------+ + + + + documented as of this encounter Visit Diagnoses + + | Diagnosis | + + | Radial styloid tenosynovitis - Primary | + + | Right wrist pain Pain in joint, forearm | + + documented in this encounter
--- OUTSIDE RECORDS SUMMARY | ~2020-02-18 | XMS | Encounter Summary ---
Demographics + + + | Address | [address] | | | [place] [address] | + + + | Home Phone [...] Providers + +------+ + | Care Clinical Social Work Therapist Name | Role | Phone | [...] | [facility] | [place] [address] | | | | [address] [place], | [phone] | | | | | [place] [address] | | | | | | [phone] | | | +--------+ + + + [...] | | | | | [place] [address] | | | | | | [phone] | | | | | | | | | | | | Julia Fisher, | | | | | | PT | | +--------+ + + + + | 02/18/ | Appointment | Rehabilitation | Erika Ernst, | | | 2019 | | | DO [address] | | | | | | [place] [address] | | | | | | [phone] | | | | | | | | | | | | Genesis Ayon OT | | +--------+ + + + + | 02/25/ | Office | Primary Care | Erika Ernst, | | | 2019 | Visit | | DO [address] | | | | | | [place] [address] | | | | | | [phone] | | | | | | | [...] | | | | | | [place] [address] | | | | | | [phone] | | | | | | | | +--------+ + + + + | 02/27/ | Appointment | Radiology | Dhara, | | | 2019 | | | [address] | | | | | | 4TH [facility], | | | | | | [place] [address] | | | | | | [phone] | | | | | | | | +--------+ + + + + | 03/04/ | Appointment | Rehabilitation | Genesis Ayon OT | | | 2019 | | | | | +--------+ + + + + | 03/09/ | Office | Orthopedic Surgery | Jeffrey Gandhi, | | | 2019 | Visit | | [address] | | | | | | [place] [address] | | | | | | [phone] | | | | | | | [...] [place] | | | | | | [address] | | | | | | [phone] | | | | | | | [...] | | | | | [place] [address] | | | | | | [phone] | | | | | | | | | | | | Azul Yeboah, | | | | | | [address] | | | | | | [place] | | | | | | [place] [address] | | | | | | [phone] | | | | | | | [...] | | | | | | [place] [address] | | | | | | [phone] | | | | | | | | +--------+ + + + + documented as of this encounter Visit Diagnoses Not on filedocumented in this encounter"
--- OUTSIDE RECORDS SUMMARY | ~2020-02-18 | XMS | Encounter Summary ---
Demographics + + + | Address | [address] | | | [place] [address] | + + + | Home Phone [...] Providers + +------+ + | Care Hair Salon Manager Name | Role | Phone | [...] | | | [place] | [id number] | | | | | [address] | | | | | | [phone] | | | +--------+ + + + [...] | | | | | [place], [place] [address] | | | | | | [phone] | | | | | | | | | | | | Julia Fisher, | | | | | | PT | | +--------+ + + + + | 02/18/ | Appointment | Rehabilitation | Erika Ernst, | | | 2019 | | | DO [address] | | | | | | [place] [address] | | | | | | [phone] | | | | | | | | | | | | Genesis Ayon OT | | +--------+ + + + + | 02/25/ | Office | Primary Care | Erika Ernst, | | | 2019 | Visit | | DO [address] | | | | | | [place] [address] | | | | | | [phone] | | | | | | | [...] | | | | | [place] [address] | | | | | | [phone] | | | | | | | | +--------+ + + + + | 02/27/ | Appointment | Radiology | Dhara, | | | 2019 | | | [address] | | | | | | 4TH [facility], | | | | | | [place] [address] | | | | | | [phone] | | | | | | | | +--------+ + + + + | 03/04/ | Appointment | Rehabilitation | Genesis Ayon OT | | | 2019 | | | | | +--------+ + + + + | 03/09/ | Office | Orthopedic Surgery | Jeffrey Gandhi, | | | 2019 | Visit | | MD [address] [facility] | | | | | | [place] [address] | | | | | | [phone] | | | | | | | [...] [place] | | | | | | [address] | | | | | | [phone] | | | | | | | [...] | | | | | [place] [address] | | | | | | [phone] | | | | | | | | | | | | Azul Yeboah, | | | | | | MD [address] | | | | | | [place] | | | | | | [place] [address] | | | | | | [phone] | | | | | | | [...] | | | | | | [place] [address] | | | | | | [phone] | | | | | | | | +--------+ + + + + documented as of this encounter Visit Diagnoses Not on filedocumented in this encounter"
--- OUTSIDE RECORDS SUMMARY | ~2020-02-18 | XMS | Encounter Summary ---
Demographics + + + | Address | [address] | | | [place] [address] | + + + | Home Phone [...] Team Providers + +------+ + | Care Pigment Pusher Name | Role | Phone | [...] Medication Refill | | 2019 | | [facility] | DO [address] | | | | | [facility] [address] | [address] [place] | | | | | [address] [place], | [place] [address] | | | | | [place] [address] | [phone] | | | | | [phone] | | | +--------+--------+ + + + [...] | | | | | [place] [address] | | | | | | [phone] | | | | | | | | | | | | Julia Fisher, | | | | | | PT | | +--------+ + + + + | 02/18/ | Appointment | Rehabilitation | Erika Ernst, | | | 2019 | | | DO [address] | | | | | | [place] [address] | | | | | | [phone] | | | | | | | | | | | | Genesis Ayon OT | | +--------+ + + + + | 02/25/ | Office | Primary Care | Erika Ernst, | | | 2019 | Visit | | DO [address] | | | | | | [place] [address] | | | | | | [phone] | | | | | | | [...] | | | | | [place] [address] | | | | | | [phone] | | | | | | | | +--------+ + + + + | 02/27/ | Appointment | Radiology | Dhara, | | | 2019 | | | [address] | | | | | | 4TH [facility], | | | | | | [place] [address] | | | | | | [phone] | | | | | | | [...] | | | | | | [place] [address] | | | | | | [phone] | | | | | | | [...] [place] | | | | | | [address] | | | | | | [phone] | | | | | | | [...] | | | | | [place] [address] | | | | | | [phone] | | | | | | | | | | | | Azul Yeboah, | | | | | | MD [address] | | | | | | [place] | | | | | | [place] [address] | | | | | | [phone] | | | | | | | [...] | | | | | | [place] [address] | | | | | | [phone] | | | | | | | | +--------+ + + + + documented as of this encounter Visit Diagnoses Not on filedocumented in this encounter"
--- OUTSIDE RECORDS SUMMARY | ~2020-02-18 | XMS | Encounter Summary ---
Demographics + + + | Address | [address] | | | [place] [address] | + + + | Home Phone [...] + +------+ + | Care Accounts Receivable Processor Name | Role | Phone | [...] [place] | | | | | | [address] | | | | | | [phone] | | | +--------+ + + + [...] | | | | | [place] [address] | | | | | | [phone] | | | | | | | | | | | | Julia Fisher, | | | | | | PT | | +--------+ + + + + | 02/18/ | Appointment | Rehabilitation | Erika Ernst, | | | 2019 | | | DO [address] | | | | | | [place] [address] | | | | | | [phone] | | | | | | | | | | | | Genesis Ayon OT | | +--------+ + + + + | 02/25/ | Office | Primary Care | Erika Ernst, | | | 2019 | Visit | | DO [address] | | | | | | [place] [address] | | | | | | [phone] | | | | | | | [...] | | | | | | [place] [address] | | | | | | [phone] | | | | | | | | +--------+ + + + + | 02/27/ | Appointment | Radiology | Dhara, | | | 2019 | | | [address] | | | | | | 4TH [facility], | | | | | | [place] [address] | | | | | | [phone] | | | | | | | | +--------+ + + + + | 03/04/ | Appointment | Rehabilitation | Genesis Ayon OT | | | 2019 | | | | | +--------+ + + + + | 03/09/ | Office | Orthopedic Surgery | Jeffrey Gandhi, | | | 2019 | Visit | | [address] | | | | | | [place] [address] | | | | | | [phone] | | | | | | | [...] [place] | | | | | | [address] | | | | | | [phone] | | | | | | | [...] | | | | | [place] [address] | | | | | | [phone] | | | | | | | | | | | | Azul Yeboah, | | | | | | MD [address] | | | | | | [place] | | | | | | [place] [address] | | | | | | [phone] | | | | | | | [...] | | | | | | [place] [address] | | | | | | [phone] | | | | | | | | +--------+ + + + + documented as of this encounter Visit Diagnoses Not on filedocumented in this encounter"
--- OUTSIDE RECORDS SUMMARY | ~2020-02-18 | XMS | Encounter Summary ---
Demographics + + + | Address | [address] | | | [place] [address] | + + + | Home Phone [...] Team Providers + +------+ + | Care Exercise Rider Name | Role | Phone | [...] [address] | | | | | [place] [address] | | | | | | [phone] | | | +--------+ + + + [...] | | | | | [place] [address] | | | | | | [phone] | | | | | | | | | | | | Julia Fisher, | | | | | | PT | | +--------+ + + + + | 02/18/ | Appointment | Rehabilitation | Erika Ernst, | | | 2019 | | | DO [address] | | | | | | [place] [address] | | | | | | [phone] | | | | | | | | | | | | Genesis Ayon OT | | +--------+ + + + + | 02/25/ | Office | Primary Care | Erika Ernst, | | | 2019 | Visit | | DO [address] | | | | | | [place] [address] | | | | | | [phone] | | | | | | | [...] | | | | | [place] [address] | | | | | | [phone] | | | | | | | | +--------+ + + + + | 02/27/ | Appointment | Radiology | Dhara, | | | 2019 | | | [address] | | | | | | [address] [place], | | | | | | [place] [address] | | | | | | [phone] | | | | | | | [...] [place] | | | | | | [place] [address] | | | | | | [phone] | | | | | | | [...] [place] | | | | | | [address] | | | | | | [phone] | | | | | | | [...] | | | | | [place] [address] | | | | | | [phone] | | | | | | | | | | | | Azul Yeboah, | | | | | | MD [address] | | | | | | [place] | | | | | | [place] [address] | | | | | | [phone] | | | | | | | [...] | | | | | | [place] [address] | | | | | | [phone] | | | | | | | | +--------+ + + + + documented as of this encounter Visit Diagnoses Not on filedocumented in this encounter"
--- OUTSIDE RECORDS SUMMARY | ~2020-02-18 | XMS | Encounter Summary ---
Demographics + + + | Address | [address] | | | [place] [address] | + + + | Home Phone [...] Providers + +------+ + | Care Public Service Administrator Name | Role | Phone | [...] + + | 12/10/ | Telephone | [place] [facility] | Erika Ernst, | Referral | | 2020 | | [facility] | DO [address] | | | | | [facility] [address] | [place] [address] | | | | | [address] [place], | [phone] | | | | | [place] [address] | | | | | | [phone] | | | +--------+ + + + [...] | | | | | [place] [address] | | | | | | [phone] | | | | | | | | | | | | Julia Fisher, | | | | | | PT | | +--------+ + + + + | 02/18/ | Appointment | Rehabilitation | Erika Ernst, | | | 2019 | | | DO [address] | | | | | | [place] [address] | | | | | | [phone] | | | | | | | | | | | | Genesis Ayon OT | | +--------+ + + + + | 02/25/ | Office | Primary Care | Erika Ernst, | | | 2019 | Visit | | DO [address] | | | | | | [place] [address] | | | | | | [phone] | | | | | | | [...] | | | | | | [place] [address] | | | | | | [phone] | | | | | | | | +--------+ + + + + | 02/27/ | Appointment | Radiology | Dhara, | | | 2019 | | | [address] | | | | | | 4TH [facility], | | | | | | [place] [address] | | | | | | [phone] | | | | | | | | +--------+ + + + + | 03/04/ | Appointment | Rehabilitation | Genesis Ayon OT | | | 2019 | | | | | +--------+ + + + + | 03/09/ | Office | Orthopedic Surgery | Jeffrey Gandhi, | | | 2019 | Visit | | [address] | | | | | | [place] [address] | | | | | | [phone] | | | | | | | [...] [place] | | | | | | [address] | | | | | | [phone] | | | | | | | [...] | | | | | [place] [address] | | | | | | [phone] | | | | | | | | | | | | Auzl Yeboah, | | | | | | [address] | | | | | | [place] | | | | | | [place] [address] | | | | | | [phone] | | | | | | | [...] | | | | | | [place] [address] | | | | | | [phone] | | | | | | | | +--------+ + + + + documented as of this encounter Visit Diagnoses Not on filedocumented in this encounter"
--- OUTSIDE RECORDS SUMMARY | ~2020-02-18 | XMS | Encounter Summary ---
Demographics + + + | Address | [address] | | | [place] [address] | + + + | Home Phone [...] Team Providers + +------+ + | Care Oncology Rn Name | Role | Phone | + +------+ + | Erika Ernst DO | PCP | | + +------+ + Encounter Details +--------+ + + + + | Date | Type | Department | Care Team | Description | +--------+ + + + + | 01/07/ | Abstract | [place] [facility] | Erika Ernst, | | | 2018 | | [address] | | | | | [facility] [address] | [place] [address] | | | | | [address] [facility] [place], | [phone] | | | | | [place] [address] | | | | | | [phone] | | | +--------+ + + + [...] | | | | | [place] [address] | | | | | | [phone] | | | | | | | | | | | | Julia Fisher, | | | | | | PT | | +--------+ + + + + | 02/18/ | Appointment | Rehabilitation | Erika Ernst, | | | 2019 | | | DO [address] | | | | | | [place] [address] | | | | | | [phone] | | | | | | | | | | | | Genesis Ayon, SUSAN | | +--------+ + + + + | 02/25/ | Office | Primary Care | Erika Ernst, | | | 2019 | Visit | | DO [address] [place] [address] | | | | | | [place] [address] | | | | | | [phone] | | | | | | | [...] | | | | | [place] [address] | | | | | | [phone] | | | | | | | | +--------+ + + + + | 02/27/ | Appointment | Radiology | Dhara, | | 2019 | | | [address] | | | | | | [address] [place], | | | | | | [place] [address] | | | | | | [phone] | | | | | | | | +--------+ + + + + | 03/04/ | Appointment | Rehabilitation | Genesis Ayon OT | | 2019 | | | | | +--------+ + + + + | 03/09/ | Office | Orthopedic Surgery | Jeffrey Gandhi, | | | 2019 | Visit | | [address] | | | | | | [place] [address] | | | | | | [phone] | | | | | | | [...] [place] | | | | | | [address] | | | | | | [phone] | | | | | | | [...] | | | | | [place] [address] | | | | | | [phone] | | | | | | | | | | | | Azul Yeboah, | | | | | | MD [address] | | | | | | [place] | | | | | | [place] [address] | | | | | | [phone] | | | | | | | [...] | | | | | | [place] [address] | | | | | | [phone] | | | | | | | | +--------+ + + + + documented as of this encounter Visit Diagnoses Not on filedocumented in this encounter"
--- OUTSIDE RECORDS SUMMARY | ~2020-02-18 | XMS | Encounter Summary ---
Demographics + + + | Address | [address] | | | [place] [address] | + + + | Home Phone [...] Team Providers + +------+ + | Care Radiology Supervisor Name | Role | Phone | + +------+ + PCP | Unavailable | + +------+ + Encounter Details +--------+ + + + + | Date | Type | Department | Care Team | Description | +--------+ + + + + | 02/09/ | [facility] | Heike Rodriguez, | | | 2015 | Encounter | [facility] | DECORATIVE CUTTING MACHINE TENDER [address] | | | | | [address] | [place] | | | | | [place] | [address] | | | | | [address] | | | | | | [phone] | | | +--------+ + + + [...] | | | | | [place] [address] | | | | | | [phone] | | | | | | | | | | | | Julia Fisher, | | | | | | PT | | +--------+ + + + + | 02/18/ | Appointment | Rehabilitation | Erika Ernst, | | | 2019 | | | DO [address] | | | | | | [place] [address] | | | | | | [phone] | | | | | | | | | | | | Genesis Ayon, OT | | +--------+ + + + + | 02/25/ | Office | Primary Care | Erika Ernst, | | | 2019 | Visit | | DO [address] | | | | | | [place] [address] | | | | | | [phone] | | | | | | | [...] | | | | | [place] [address] | | | | | | [phone] | | | | | | | | +--------+ + + + + | 02/27/ | Appointment | Radiology | Dhara, | | | 2019 | | | [address] | | | | | | 4TH [facility], | | | | | | [place] [address] | | | | | | [phone] | | | | | | | | +--------+ + + + + | 03/04/ | Appointment | Rehabilitation | Genesis Ayon OT | | | 2019 | | | | | +--------+ + + + + | 03/09/ | Office | Orthopedic Surgery | Jeffrey Gandhi, | | 2019 | Visit | | [address] | | | | | | [place] [address] | | | | | | [phone] | | | | | | | [...] [place] | | | | | | [address] | | | | | | [phone] | | | | | | | [...] | | | | | [place] [address] | | | | | | [phone] | | | | | | | | | | | | Azul Yeboah, | | | | | | MD [address] | | | | | | [place] | | | | | | [place] [address] | | | | | | [phone] | | | | | | | | +--------+ + + + + | 04/08/ | Appointment | Nutrition | Janel Webster | | | 2019 | | | [place], [place] | | +--------+ + + + + | 05/21/ | Office | Neurology | Dhara, | | | 2019 | Visit | | Cody, DECORATIVE CUTTING MACHINE TENDER [address] | | | | | | [address] [facility], | | | | | | [place] [address] | | | | | | [phone] | | | | | | | [...] | | IMPRESSION:Left basilar pneumonia. Job #: [id number] Read By: DAYANA Boyd | | MD [...]
--- OUTSIDE RECORDS SUMMARY | ~2020-02-18 | XMS | Encounter Summary ---
Demographics + + + | Address | [address] | | | [place] [address] | + + + | Home Phone [...] Team Providers + +------+ + | Care Automobile Taillight Assembler Name | Role | Phone | [...] [place] | | | | | | [address] | | | | | | [phone] | | | +--------+ + + + [...] | 11/26/19 | | | (VITAMIN D3) 65812 | mouth Once a week | tablet [...] + + +---------+ + + | [address]LE[address] | | | 0 | 11/26/19 [...] | | | | | [place] [address] | | | | | | [phone] | | | | | | | | | | | | Julia Fisher, | | | | | | PT | | +--------+ + + + + | 02/18/ | Appointment | Rehabilitation | Erika Ernst, | | | 2019 | | | DO [address] | | | | | | [place] [address] | | | | | | [phone] | | | | | | | | | | | | Genesis Ayon OT | | +--------+ + + + + | 02/25/ | Office | Primary Care | Erika Ernst, | | | 2019 | Visit | | DO [address] | | | | | | [place] [address] | | | | | | [phone] | | | | | | | [...] | | | | | [place] [address] | | | | | | [phone] | | | | | | | | +--------+ + + + + | 02/27/ | Appointment | Radiology | Dhara, | | | 2019 | | | [address] | | | | | [address] [place], | | | | | | [place] [address] | | | | | | [phone] | | | | | | | [...] | | | | | [place] [address] | | | | | | [phone] | | | | | | | [...] [place] | | | | | | [address] | | | | | | [phone] | | | | | | | [...] | | | | | [place] [address] | | | | | | [phone] | | | | | | | | | | | | Azul Yeboah, | | | | | | MD [address] | | | | | | [place] | | | | | | [place] [address] | | | | | | [phone] | | | | | | | [...] | | | | | | [place] [address] | | | | | | [phone] | | | | | | | [...] C?MRN: | | | | | | [id number] | | | [id number] | | | riteri | | | [...] | | | St. | | | Solomon | | | y | | | [...] | | | St. | | | Solomon | | | y H. | | [...] | | | ent/e5 | | | [id number] | | | -b14d- | | | 444a-8 | | | 61c-15 | | | [id number] | | | 7078 | | | [...]
--- OUTSIDE RECORDS SUMMARY | ~2020-02-18 | XMS | Encounter Summary ---
Demographics + + + | Address | [address] | | | [place] [address] | + + + | Home Phone [...] Providers + +------+ + | Care Configuration Consultant Name | Role | Phone | [...] ears | | 2019 | Visit | [facility] | DIRECTOR MUSIC-TREATMENT SUPERVISOR [address] | (Primary Dx); Acute | | | | [facility] [address] [place] | recurrent | | | | [address] [place], | [place] [address] | pansinusitis | | | | [place] [address] | [phone] | | | | | [phone] | | | +--------+---------+ + + + [...] encounter Patient Instructions Patient Instructions Alem Guerrero APRN-TREATMENT SUPERVISOR - 12/03/2018 12:23 PM PSTPlan: Sinusitis -Take [...] for yourself at home: You may use pqjy-gkq-ttqiuzb medicine as directed to control pain, unless [...] severe liver damag e. You may use ssjp-mip-fokhyoq decongestants such as phenylephrine or pseudoephedrine. But [...] Unusual drowsiness or confusion Date Last Reviewed: 07/02/201619996692-5588 [employer]. [address] [place] [address]. All righ ts reserved. This information is [...] sudafed daily prescribed by Dr. Pruett in [place] (banjo repair person/asthma specialist) Chronic ear pain from TMJ; unsure [...] BID 60 tablet 3 Cholecalciferol (VITAMIN D3) 61697 units TABS Take 1 tablet by mouth [...] as planned. Electronically signed by: ALBA [email or web address] [facility] Note: Part of this report was transcribed using voice recognition software. Every effort wa s made to ensure accuracy. However, inadvertent computerized link trainer maintenance man errors may be pre sent. [email or web address] rubin [...] | | | | | [place] [address] | | | | | | [phone] | | | | | | | | | | | | Julia Fisher, | | | | | | PT | | +--------+ + + + + | 02/18/ | Appointment | Rehabilitation | Erika Ernst, | | | 2019 | | | DO [address] | | | | | | [place] [address] | | | | | | [phone] | | | | | | | | | | | | [facility] | | +--------+ + + + + | 02/25/ | Office | Primary Care | Erika Ernst, | | | 2019 | Visit | | DO [address] [place] | | | | | | [place] [address] | | | | | | [phone] | | | | | | | [...] | | | | | [place] [address] | | | | | | [phone] | | | | | | | | +--------+ + + + + | 02/27/ | Appointment | Radiology | Dhara | | | 2019 | | | DWAINE Ross [address] [place], | | | | | | [place] [address] | | | | | | [phone] | | | | | | | | +--------+ + + + + | 03/04/ | Appointment | Rehabilitation | [facility] | | | 2019 | | | | | +--------+ + + + + | 03/09/ | Office | Orthopedic Surgery | Jeffrey Gandhi, | | | 2019 | Visit | | [address] | | | | | | [place] [address] | | | | | | [phone] | | | | | | | [...] [place] | | | | | | [address] | | | | | | [phone] | | | | | | | [...] | | | | | [place] [address] | | | | | | [phone] | | | | | | | | | | | | Azul Yeboah, | | | | | | [address] | | | | | | [place] | | | | | | [place] [address] | | | | | | [phone] | | | | | | | [...] | | | | | | [place] [address] | | | | | | [phone] | | | | | | | | +--------+ + + + + documented as of this encounter Visit Diagnoses + + | Diagnosis | + + | Otalgia of both ears - Primary Otalgia, unspecified | + + | Acute recurrent pansinusitis Other acute sinusitis | + + documented in this encounter
--- OUTSIDE RECORDS SUMMARY | ~2020-02-18 | XMS | Encounter Summary ---
Demographics + + + | Address | [address] | | | [place] [address] | + + + | Home Phone [...] Team Providers + +------+ + | Care Soaking Pits Supervisor Name | Role | Phone | [...] | [facility] | [place] [address] | | | | [address] [place], | [phone] | | | | | [place] [address] | | | | | | [phone] | | | +--------+ + + + [...] | | 2019 | | | DO [address] [place] [address] | | | | | | [place], [place] [address] | | | | | | [phone] | | | | | | | | | | | | Julia Fisher, | | | | | | PT | | +--------+ + + + + | 02/18/ | Appointment | Rehabilitation | Erika Ernst, | | | 2019 | | | DO [address] | | | | | | [place] [address] | | | | | | [phone] | | | | | | | | | | | | Genesis Ayon OT | | +--------+ + + + + | 02/25/ | Office | Primary Care | Erika Ernst, | | | 2019 | Visit | | DO [address] | | | | | | [place] [address] | | | | | | [phone] | | | | | | | [...] | | | | | [place] [address] | | | | | | [phone] | | | | | | | | +--------+ + + + + | 02/27/ | Appointment | Radiology | Dhara, | | | 2019 | | | [address] | | | | | | [address]TH [place], | | | | | | [place] [address] | | | | | | [phone] | | | | | | | [...] | | | | [place] [address] | | | | | | [phone] | | | | | | | [...] [place] | | | | | | [address] | | | | | | [phone] | | | | | | | [...] | | | | | [place] [address] | | | | | | [phone] | | | | | | | | | | | | Azul Yeboah, | | | | | | MD [address] | | | | | | [place] | | | | | | [place] [address] | | | | | | [phone] | | | | | | | [...] | | | | | | [place] [address] | | | | | | [phone] | | | | | | | | +--------+ + + + + documented as of this encounter Visit Diagnoses Not on filedocumented in this encounter"
--- OUTSIDE RECORDS SUMMARY | ~2020-02-18 | XMS | Encounter Summary ---
Demographics + + + | Address | [address] | | | [place] [address] | + + + | Home Phone [...] Team Providers + +------+ + | Care Mail Order Biller Name | Role | Phone | [...] | [facility] | [place] [address] | | | | | [address] [place], | [phone] | | | | | [place] [address] | | | | | | [phone] | | | +--------+ + + + [...] | | | | | [place] [address] | | | | | | [phone] | | | | | | | | | | | | Julia Fisher, | | | | | | PT | | +--------+ + + + + | 02/18/ | Appointment | Rehabilitation | Erika Ernst, | | | 2019 | | | DO [address] | | | | | | [place] [address] | | | | | | [phone] | | | | | | | | | | | | Genesis Ayon OT | | +--------+ + + + + | 02/25/ | Office | Primary Care | Erika Ernst, | | | 2019 | Visit | | DO [address] | | | | | | [place] [address] | | | | | | [phone] | | | | | | | [...] | | | | | [place] [address] | | | | | | [phone] | | | | | | | | +--------+ + + + + | 02/27/ | Appointment | Radiology | Dhara, | | | 2019 | | | [address] | | | | | | 4TH [facility], | | | | | | [place] [address] | | | | | | [phone] | | | | | | | [...] | | | | | [place] [address] | | | | | | [phone] | | | | | | | [...] [place] | | | | | | [address] | | | | | | [phone] | | | | | | | [...] | | | | | [place] [address] | | | | | | [phone] | | | | | | | | | | | | Azul Yeboah, | | | | | | MD [address] | | | | | | [place] | | | | | | [place] [address] | | | | | | [phone] | | | | | | | [...] [address] | | | | | | [phone] | | | | | | | | +--------+ + + + + documented as of this encounter Visit Diagnoses + + | Diagnosis | + + | Vitamin D deficiency - Primary Unspecified vitamin D deficiency | + + documented in this encounter"
--- OUTSIDE RECORDS SUMMARY | ~2020-02-18 | XMS | Encounter Summary ---
Demographics + + + | Address | [address] | | | [place] [address] | + + + | Home Phone [...] Team Providers + +------+ + | Care Labor Relations Analyst Name | Role | Phone | + +------+ + | Erika Ernst DO | PCP | | + +------+ + Encounter Details +--------+ + + + + | Date | Type | Department | Care Team | Description | +--------+ + + + + | 06/17/ | Hospital | [facility] | Conversion | Diagnosis unknown | | 2018 | Encounter | CONVERSION DEP [address] | Transaction, | | | | | [address] | Provider Unknown | | | | | [place], [place] | [phone] | | | | | [address] | (Fax) | | | | | [phone] | | | +--------+ + + + [...] | 03/19/20 | | | (VITAMIN D3) 43318 | mouth Once a week | tablet [...] | | | | | [place] [address] | | | | | | [phone] | | | | | | | [...] [address] | | | | | | [phone] | | | | | | | | | | | | Genesis Ayon OT | | +--------+ + + + + | 02/25/ | Office | Primary Care | Erika Ernst, | | | 2019 | Visit | | DO [address] | | | | | | [place] [address] | | | | | | [phone] | | | | | | | [...] | | Visit | | [address] [place] | | | | | | [place] [address] | | | | | | [phone] | | | | | | | | +--------+ + + + + | 02/27/ | Appointment | Radiology | Dhara, | | | 2019 | | | [address] | | | | | | 4TH [facility], | | | | | | [place] [address] | | | | | | [phone] | | | | | | | [...] [place] | | | | | | [place] [address] | | | | | | [phone] | | | | | | | [...] [place] | | | | | | [address] | | | | | | [phone] | | | | | | | [...] | | | | | [place] [address] | | | | | | [phone] | | | | | | | | | | | | Azul Yeboah, | | | | | | MD [address] | | | | | | [place] | | | | | | [place] [address] | | | | | | [phone] | | | | | | | [...] | | | | | [address] [place], | | | | | | [place] [address] | | | | | | [phone] | | | | | | | [...]
--- OUTSIDE RECORDS SUMMARY | ~2020-02-18 | XMS | Encounter Summary ---
Demographics + + + | Address | [address] | | | [place] [address] | + + + | Home Phone [...] Providers + +------+ + | Care Executive Account Manager Name | Role | Phone | [...] | 2019 | | [facility] | Plant Operations Vice President | | | | | [address] [place] | | | | | | [place] | | | | | | [address] | | | | | | [phone] | | | +--------+ + + + [...] | | 2019 | | | DO [address] [place] [address] | | | | | | [place] [address] | | | | | | [phone] | | | | | | | | | | | | Julia Fisher, | | | | | | PT | | +--------+ + + + + | 02/18/ | Appointment | Rehabilitation | Erika Ernst, | | | 2019 | | | DO [address] | | | | | | [place] [address] | | | | | | [phone] | | | | | | | | | | | | Genesis Ayon, SUSAN | | +--------+ + + + + | 02/25/ | Office | Primary Care | Erika Ernst, | | | 2019 | Visit | | DO [address] | | | | | | [place] [address] | | | | | | [phone] | | | | | | | [...] | | | | | [place] [address] | | | | | | [phone] | | | | | | | | +--------+ + + + + | 02/27/ | Appointment | Radiology | Dhara, | | | 2019 | | | [address] | | | | | | 4TH [facility] [place], | | | | | | [place] [address] | | | | | | [phone] | | | | | | | [...] | | | | | [place] [address] | | | | | | [phone] | | | | | | | [...] [place] | | | | | | [address] | | | | | | [phone] | | | | | | | [...] | | | | | [place] [address] | | | | | | [phone] | | | | | | | | | | | | Azul Yeboah, | | | | | | MD [address] | | | | | | [place] | | | | | | [place] [address] | | | | | | [phone] | | | | | | | [...] | | | | | | [place] [address] | | | | | | [phone] | | | | | | | [...] + + | [place] [facility] | [address] | [place] | [phone] | | [facility] | | [address] | | + + + + + documented in this encounter Visit Diagnoses + + | Diagnosis | + + | Lymphocytosis Lymphocytosis (symptomatic) | + + documented in this encounter"
--- OUTSIDE RECORDS SUMMARY | ~2020-02-18 | XMS | Encounter Summary ---
Demographics + + + | Address | [address] | | | [place] [address] | + + + | Home Phone [...] Team Providers + +------+ + | Care Carbonation Equipment Operator Name | Role | Phone [...] | [address] | | | | | [address] | | | | | | [phone] | | | +--------+ + + + [...] | | | | | [place] [address] | | | | | | [phone] | | | | | | | | | | | | Julia Fisher, | | | | | | PT | | +--------+ + + + + | 02/18/ | Appointment | Rehabilitation | Erika Ernst, | | | 2019 | | | DO [address] | | | | | | [place] [address] | | | | | | [phone] | | | | | | | | | | | | Genesis Ayon OT | | +--------+ + + + + | 02/25/ | Office | Primary Care | Erika Ernst, | | | 2019 | Visit | | DO [address] | | | | | | [place] [address] | | | | | | [phone] | | | | | | | [...] | | | | | [place] [address] | | | | | | [phone] | | | | | | | | +--------+ + + + + | 02/27/ | Appointment | Radiology | Dhara, | | | 2019 | | | [address] | | | | | | 4TH [facility], | | | | | | [place] [address] | | | | | | [phone] | | | | | | | [...] [place] | | | | | | [place] [address] | | | | | | [phone] | | | | | | | [...] [place] | | | | | | [address] | | | | | | [phone] | | | | | | | [...] | | | | | [place] [address] | | | | | | [phone] | | | | | | | | | | | | Azul Yeboah, | | | | | | MD [address] | | | | | | [place] | | | | | | [place] [address] | | | | | | [phone] | | | | | | | [...] | | | | | | [place] [address] | | | | | | [phone] | | | | | | | | +--------+ + + + + documented as of this encounter Visit Diagnoses Not on filedocumented in this encounter"
--- OUTSIDE RECORDS SUMMARY | ~2020-02-18 | XMS | Encounter Summary ---
Demographics + + + | Address | [address] | | | [place] [address] | + + + | Home Phone [...] Team Providers + +------+ + | Care Brooch And Bracelet Maker Name | Role | Phone | [...] + + | 06/13/ | Emergency | [facility] | Denis Araya, | Contusion of right | | 2019 | | HOSPITAL [facility] | DRAPERY INSPECTOR [address] | hand, initial | | | | CENTER [address] | [place], [place] | encounter (Primary | | | | [place] | [address] | Dx) | | | | [address] | | | | | | [phone] | | | +--------+ + + + [...] cannot be sent through Care Everywhere.Hand Contusion (Upper Sorbian)documented in this encounter Medications at Time of [...] | 04/12/20 | | | (VITAMIN D3) 57329 | mouth Once a week | tablet [...] | | | | | [place] [address] | | | | | | [phone] | | | | | | | | | | | | Julia Fisher, | | | | | | PT | | +--------+ + + + + | 02/18/ | Appointment | Rehabilitation | Erika Ernst, | | | 2019 | | | DO [address] [place] | | | | | | [place] [address] | | | | | | [phone] | | | | | | | | | | | | Genesis Ayon OT | | +--------+ + + + + | 02/25/ | Office | Primary Care | Erika Ernst, | | | 2019 | Visit | | DO [address] | | | | | | [place] [address] | | | | | | [phone] | | | | | | | [...] | | | | | [place] [address] | | | | | | [phone] | | | | | | | | +--------+ + + + + | 02/27/ | Appointment | Radiology | Dhara, | | | 2019 | | | [address] | | | | | | [address] [place], | | | | | | [place] [address] | | | | | | [phone] | | | | | | | | +--------+ + + + + | 03/04/ | Appointment | Rehabilitation | Genesis Ayon OT | | | 2019 | | | | | +--------+ + + + + | 03/09/ | Office | Orthopedic Surgery | Jeffrey Gandhi, | | | 2019 | Visit | | [address] | | | | | | [place] [address] | | | | | | [phone] | | | | | | | [...] [place] | | | | | | [address] | | | | | | [phone] | | | | | | | [...] | | | | | [place] [address] | | | | | | [phone] | | | | | | | | | | | | Azul Yeboah, | | | | | | MD [address] | | | | | | [place] | | | | | | [place] [address] | | | | | | [phone] | | | | | | | [...] | | | | | | [address]TH [place], | | | | | | [place] [address] | | | | | | [phone] | | | | | | | [...]
--- OUTSIDE RECORDS SUMMARY | ~2020-02-18 | XMS | Encounter Summary ---
Demographics + + + | Address | [address] | | | [place] [address] | + + + | Home Phone [...] Providers + +------+ + | Care Software Test Engineer Name | Role | Phone [...] [address] | | | | | [place] [address] | | | | | | [phone] | | | +--------+ + + + [...] | | | | | [place] [address] | | | | | | [phone] | | | | | | | | | | | | Julia Fisher, | | | | | | PT | | +--------+ + + + + | 02/18/ | Appointment | Rehabilitation | Erika Ernst, | | | 2019 | | | DO [address] | | | | | | [place] [address] | | | | | | [phone] | | | | | | | | | | | | Genesis Ayon OT | | +--------+ + + + + | 02/25/ | Office | Primary Care | Erika Ernst, | | | 2019 | Visit | | DO [address] | | | | | | [place] [address] | | | | | | [phone] | | | | | | | [...] | | | | | [place] [address] | | | | | | [phone] | | | | | | | | +--------+ + + + + | 02/27/ | Appointment | Radiology | Dhara, | | | 2019 | | | [address] | | | | | | 4TH [facility], | | | | | | [place] [address] | | | | | | [phone] | | | | | | | | +--------+ + + + + | 03/04/ | Appointment | Rehabilitation | Genesis Ayon OT | | | 2019 | | | | | +--------+ + + + + | 03/09/ | Office | Orthopedic Surgery | Jeffrey Gandhi, | | | 2019 | Visit | | [address] | | | | | | [place] [address] | | | | | | [phone] | | | | | | | [...] [place] | | | | | | [address] | | | | | | [phone] | | | | | | | [...] | | | | | [place] [address] | | | | | | [phone] | | | | | | | | | | | | Azul Yeboah, | | | | | | MD [address] | | | | | | [place] | | | | | | [place] [address] | | | | | | [phone] | | | | | | | [...] | | | | | | [place] [address] | | | | | | [phone] | | | | | | | | +--------+ + + + + documented as of this encounter Visit Diagnoses Not on filedocumented in this encounter"
--- OUTSIDE RECORDS SUMMARY | ~2020-02-18 | XMS | Encounter Summary ---
Demographics + + + | Address | [address] | | | [place] [address] | + + + | Home Phone [...] Team Providers + +------+ + | Care Shearing Machine Feeder Name | Role | Phone | + +------+ + PCP | Unavailable | + +------+ + Encounter Details +--------+ + + + + | Date | Type | Department | Care Team | Description | +--------+ + + + + | 03/01/ | [facility] | Azul Yeboah | | | 2016 | Encounter | HOSPITAL NEUROLOGY | MD Marti [address] | | | | | CLINIC [address] | [place] | | | | | [address] [place], | [place] [address] | | | | | [place] [address] | [phone] | | | | | [phone] | | | +--------+ + + + [...] | | 2019 | | | DO [facility] | | | | | | [place] [address] | | | | | | [phone] | | | | | | | | | | | | Julia Fisher, | | | | | | PT | | +--------+ + + + + | 02/18/ | Appointment | Rehabilitation | Erika Ernst, | | | 2019 | | | DO [address] | | | | | | [place] [address] | | | | | | [phone] | | | | | | | | | | | | Genesis Ayon OT | | +--------+ + + + + | 02/25/ | Office | Primary Care | Erika Ernst, | | | 2019 | Visit | | DO [address] | | | | | | [place] [address] | | | | | | [phone] | | | | | | | [...] | | | | | [place] [address] | | | | | | [phone] | | | | | | | | +--------+ + + + + | 02/27/ | Appointment | Radiology | Dhara, | | | 2019 | | | [address] | | | | | | [address] [place], | | | | | | [place] [address] | | | | | | [phone] | | | | | | | [...] | | | | | [place] [address] | | | | | | [phone] | | | | | | | [...] [place] | | | | | | [address] | | | | | | [phone] | | | | | | | [...] [address] | | | | | | [phone] | | | | | | | | | | | | Azul Yeboah, | | | | | | MD [address] | | | | | | [place] | | | | | | [place] [address] | | | | | | [phone] | | | | | | | [...] | | | | | | [place] [address] | | | | | | [phone] | | | | | | | | +--------+ + + + + documented as of this encounter Visit Diagnoses Not on filedocumented in this encounter"
--- OUTSIDE RECORDS SUMMARY | ~2020-02-18 | XMS | Encounter Summary ---
Demographics + + + | Address | [address] | | | [place] [address] | + + + | Home Phone [...] Team Providers + +------+ + | Care Night Club Manager Name | Role | Phone [...] 2019 | | [facility] | MD [address] | Advise) | | | | [address] [place] | [address] [place] | | | | | [place], [place] | [place] [address] | | | | | [address] | [phone] | | | | | [phone] | | | +--------+ + + + [...] 2019 | | | DO [address] | | | | | | [place] [address] | | | | | | [phone] | | | | | | | | | | | | Julia Fisher, | | | | | | PT | | +--------+ + + + + | 02/18/ | Appointment | Rehabilitation | Erika Ernst, | | | 2019 | | | DO [address] [place] | | | | | | [place] [address] | | | | | | [phone] | | | | | | | | | | | | Genesis Ayon OT | | +--------+ + + + + | 02/25/ | Office | Primary Care | Erika Ernst, | | | 2019 | Visit | | DO [address] [place] | | | | | | [place] [address] | | | | | | [phone] | | | | | | | [...] | | | | | [place] [address] | | | | | | [phone] | | | | | | | | +--------+ + + + + | 02/27/ | Appointment | Radiology | Dhara, | | | 2019 | | | [address] | | | | | | 4TH [facility], | | | | | | [place] [address] | | | | | | [phone] | | | | | | | [...] [place] | | | | | | [place] [address] | | | | | | [phone] | | | | | | | [...] [place] | | | | | | [address] | | | | | | [phone] | | | | | | | [...] | | | | | [place] [address] | | | | | | [phone] | | | | | | | | | | | | Azul Yeboah, | | | | | | MD [address] | | | | | | [place] | | | | | | [place] [address] | | | | | | [phone] | | | | | | | [...] | | | | | | [place] [address] | | | | | | [phone] | | | | | | | | +--------+ + + + + documented as of this encounter Visit Diagnoses Not on filedocumented in this encounter"
--- OUTSIDE RECORDS SUMMARY | ~2020-02-18 | XMS | Encounter Summary ---
Demographics + + + | Address | [address] | | | [place] [address] | + + + | Home Phone [...] Providers + +------+ + | Care Data Management Name | Role | Phone | + +------+ + PCP | Unavailable | + +------+ + Encounter Details +--------+ + + + + | Date | Type | Department | Care Team | Description | +--------+ + + + + | 04/27/ | [facility] | [facility] | Erika Ernst, | | | 2016 | Encounter | [facility] | DO [address] | | | | | [facility] | [place] [address] | | | | | [address] [facility] [place], | [phone] | | | | | [place] [address] | | | | | | [phone] | | | +--------+ + + + [...] 2019 | | | DO [facility] | | | | | | [place], [place] [address] | | | | | | [phone] | | | | | | | | | | | | Julia Fisher, | | | | | | PT | | +--------+ + + + + | 02/18/ | Appointment | Rehabilitation | Erika Ernst, | | | 2019 | | | DO [address] [place] | | | | | | [place] [address] | | | | | | [phone] | | | | | | | | | | | | Genesis Ayon, SUSAN | | +--------+ + + + + | 02/25/ | Office | Primary Care | Erika Ernst, | | | 2019 | Visit | | DO [address] [place] | | | | | | [place] [address] | | | | | | [phone] | | | | | | | [...] | | | | | [place] [address] | | | | | | [phone] | | | | | | | | +--------+ + + + + | 02/27/ | Appointment | Radiology | Dhara, | | 2019 | | | [address] | | | | | | [address] [facility] [place], | | | | | | [place] [address] | | | | | | [phone] | | | | | | | [...] | | | | | [place] [address] | | | | | | [phone] | | | | | | | [...] [place] | | | | | | [address] | | | | | | [phone] | | | | | | | [...] | | | | | [place] [address] | | | | | | [phone] | | | | | | | | | | | | Azul Yeboah, | | | | | | MD [address] | | | | | | [place] | | | | | | [place] [address] | | | | | | [phone] | | | | | | | [...] | | | | | | [place] [address] | | | | | | [phone] | | | | | | | | +--------+ + + + + documented as of this encounter Visit Diagnoses Not on filedocumented in this encounter"
--- OUTSIDE RECORDS SUMMARY | ~2020-02-18 | XMS | Encounter Summary ---
Demographics + + + | Address | [address] | | | [place] [address] | + + + | Home Phone [...] Providers + +------+ + | Care Terrazzo Helper Name | Role | Phone | [...] ears | | 2020 | Visit | [facility] | joanna, BARREL [address] | (Primary Dx); Dry | | | | MEDICAL [facility] [address] | [address] [place] | cough | | | | [address] [place], | [place] [address] | | | | | [place] [address] | [phone] | | | | | [phone] | | | +--------+---------+ + + + [...] file Gets together: Not on file Attends anabaptism service: Not on file Active member of [...] made to ensure accuracy. However, inadvertent computerized postal service sectional center manager errors may be pre sent documented i [...] | | | | | [place] [address] | | | | | | [phone] | | | | | | | | | | | | uJlia Fisher, | | | | | | PT | | +--------+ + + + + | 02/18/ | Appointment | Rehabilitation | Erika Ernst, | | | 2019 | | | DO [address] [place] | | | | | | [place] [address] | | | | | | [phone] | | | | | | | | | | | | Genesis Ayon OT | | +--------+ + + + + | 02/25/ | Office | Primary Care | Erika Ernst, | | | 2019 | Visit | | DO [address] [place] | | | | | | [place] [address] | | | | | | [phone] | | | | | | | [...] | | | | | [place] [address] | | | | | | [phone] | | | | | | | | +--------+ + + + + | 02/27/ | Appointment | Radiology | Dhara | | | 2019 | | | [address] | | | | | | [address] [place], | | | | | | [place] [address] | | | | | | [phone] | | | | | | | [...] ST | | | | | | [place] [address] | | | | | | [phone] | | | | | | | [...] [place] | | | | | | [address] | | | | | | [phone] | | | | | | | [...] | | | | | [place] [address] | | | | | | [phone] | | | | | | | | | | | | Azul Yeboah, | | | | | | [address] | | | | | | [place] | | | | | | [place] [address] | | | | | | [phone] | | | | | | | [...] | | | | | | [place] [address] | | | | | | [phone] | | | | | | | | +--------+ + + + + documented as of this encounter Visit Diagnoses + + | Diagnosis | + + | Otalgia of both ears - Primary Otalgia, unspecified | + + | Dry cough Cough | + + documented in this encounter"
--- OUTSIDE RECORDS SUMMARY | ~2020-02-18 | XMS | Encounter Summary ---
Demographics + + + | Address | [address] | | | [place] [address] | + + + | Home Phone [...] Providers + +------+ + | Care Stock Tracer Name | Role | Phone | [...] [place] | | | | | | [address] | | | | | | [phone] | | | +--------+ + + + [...] | | | | | [place] [address] | | | | | | [phone] | | | | | | | | | | | | Julia Fisher, | | | | | | PT | | +--------+ + + + + | 02/18/ | Appointment | Rehabilitation | Erika Ernst, | | | 2019 | | | DO [address] | | | | | | [place] [address] | | | | | | [phone] | | | | | | | | | | | | [facility] | | +--------+ + + + + | 02/25/ | Office | Primary Care | Erika Ernst, | | | 2019 | Visit | | DO [address] | | | | | | [place] [address] | | | | | | [phone] | | | | | | | [...] | | Visit | | [address] | | | | | | [place] [address] | | | | | | [phone] | | | | | | | | +--------+ + + + + | 02/27/ | Appointment | Radiology | Dhara, | | | 2019 | | | [address]WA[address] | | | | | | [address] [facility], | | | | | | [place] [address] | | | | | | [phone] | | | | | | | [...] | | | | [place], [place] [address] | | | | | | [phone] | | | | | | | [...] [place] | | | | | | [address] | | | | | | [phone] | | | | | | | [...] | | | | | [place] [address] | | | | | | [phone] | | | | | | | | | | | | Azul Yeboah, | | | | | | MD [address] | | | | | | [address] [place] | | | | | | [place] [address] | | | | | | [phone] | | | | | | | [...] | | | | | | [place] [address] | | | | | | [phone] | | | | | | | | +--------+ + + + + documented as of this encounter Visit Diagnoses Not on filedocumented in this encounter"
--- OUTSIDE RECORDS SUMMARY | ~2020-02-18 | XMS | Encounter Summary ---
Demographics + + + | Address | [address] | | | [place] [address] | + + + | Home Phone [...] Team Providers + +------+ + | Care Glue Drier Operator Name | Role | Phone | + +------+ + | Erika Ernst DO | PCP | | + +------+ + Reason for Visit + + + | Reason | Comments | + + + | Iron Deficiency | Pt request call back re:beronica mart/ & clarify dosage of | | Anemia | Iron she's to be taking | + + + Encounter Details +--------+ + + + + | Date | Type | Department | Care Team | Description | +--------+ + + + + | 10/15/ | Telephone | [facility] | Erika Ernst, | Iron Deficiency | | 2020 | | [facility] | DO [address] | Anemia (Pt request | | | | [facility] | [facility] [place] [address] | call back re:appt | | | | [address] [facility], | [phone] | w/ & | | | | [place] [address] | | clarify dosage of | | | | [phone] | | Iron she's to be | | | | | | taking) | +--------+ + + + + Social [...] | | | | | [place] [address] | | | | | | [phone] | | | | | | | | | | | | Julia Fisher, | | | | | | PT | | +--------+ + + + + | 02/18/ | Appointment | Rehabilitation | Erika Ernst, | | | 2019 | | | DO [address] [place] | | | | | | [place] [address] | | | | | | [phone] | | | | | | | | | | | | [facility] | | +--------+ + + + + | 02/25/ | Office | Primary Care | Erika Ernst, | | | 2019 | Visit | | DO [address] | | | | | | [place] [address] | | | | | | [phone] | | | | | | | [...] | | | | | [place] [address] | | | | | | [phone] | | | | | | | | +--------+ + + + + | 02/27/ | Appointment | Radiology | Dhara | | | 2019 | | | DWAINE Ross [address] | | | | | | [address] [place], | | | | | | [place] [address] | | | | | | [phone] | | | | | | | [...] ST | | | | | | [place] [address] | | | | | | [phone] | | | | | | | [...] [place] | | | | | | [address] | | | | | | [phone] | | | | | | | [...] | | | | | [place] [address] | | | | | | [phone] | | | | | | | | | | | | Azul Yeboah, | | | | | | [address] | | | | | | [place] | | | | | | [place] [address] | | | | | | [phone] | | | | | | | [...] | | | | | | [place] [address] | | | | | | [phone] | | | | | | | | +--------+ + + + + documented as of this encounter Visit Diagnoses Not on filedocumented in this encounter"
--- OUTSIDE RECORDS SUMMARY | ~2020-02-18 | XMS | Encounter Summary ---
Demographics + + + | Address | [address] | | | [place] [address] | + + + | Home Phone [...] Providers + +------+ + | Care Brass Finisher Name | Role | Phone | [...] Medication Related | | 2019 | | [facility] | [address] | (Medication possible | | | | MEDICAL CLINIC [address] [place] [address] | making BP to | | | | [address] [place], | [phone] | increase) | | | | [place] [address] | | | | | | [phone] | | | +--------+ + + + [...] | | | | | [place] [address] | | | | | | [phone] | | | | | | | | | | | | Julia Fisher, | | | | | | PT | | +--------+ + + + + | 02/18/ | Appointment | Rehabilitation | Erika Ernst, | | | 2019 | | | DO [address] [place] | | | | | | [place] [address] | | | | | | [phone] | | | | | | | | | | | | [facility] | | +--------+ + + + + | 02/25/ | Office | Primary Care | Erika Ernst, | | | 2019 | Visit | | DO [address] [place] | | | | | | [place] [address] | | | | | | [phone] | | | | | | | [...] | | | | | [place] [address] | | | | | | [phone] | | | | | | | | +--------+ + + + + | 02/27/ | Appointment | Radiology | Dhara, | | | 2019 | | | DWAINE Ross [address] | | | | | | [address] [place], | | | | | | [place] [address] | | | | | | [phone] | | | | | | | | +--------+ + + + + | 03/04/ | Appointment | Rehabilitation | [facility] OT | | | 2019 | | | | | +--------+ + + + + | 03/09/ | Office | Orthopedic Surgery | Jeffrey Gandhi, | | | 2019 | Visit | | [address] | | | | | | [place] [address] | | | | | | [phone] | | | | | | | [...] [place] | | | | | | [address] | | | | | | [phone] | | | | | | | [...] | | | | | [place] [address] | | | | | | [phone] | | | | | | | | | | | | Azul Yeboah, | | | | | | MD [address] | | | | | | [place] | | | | | | [place] [address] | | | | | | [phone] | | | | | | | [...] | | | | | | [place] [address] | | | | | | [phone] | | | | | | | | +--------+ + + + + documented as of this encounter Visit Diagnoses Not on filedocumented in this encounter"
--- OUTSIDE RECORDS SUMMARY | ~2020-02-18 | XMS | Encounter Summary ---
Demographics + + + | Address | [address] | | | [place] [address] | + + + | Home Phone [...] Providers + +------+ + | Care Health Care Coordinator Name | Role | Phone [...] [address] [place] | [place] [address] | | | | | [place], [place] | [phone] | | | | | [address] | | | | | | [phone] | | | +--------+ + + + [...] | | | | | [place] [address] | | | | | | [phone] | | | | | | | [...] [address] | | | | | | [phone] | | | | | | | | | | | | [facility] | | +--------+ + + + + | 02/25/ | Office | Primary Care | Erika Ernst, | | | 2019 | Visit | | DO [address] | | | | | | [place] [address] | | | | | | [phone] | | | | | | | [...] | | | | | [place] [address] | | | | | | [phone] | | | | | | | | +--------+ + + + + | 02/27/ | Appointment | Radiology | Dhara, | | | 2019 | | | DWAINE [address] | | | | | | 4TH [facility], | | | | | | [place] [address] | | | | | | [phone] | | | | | | | | +--------+ + + + + | 03/04/ | Appointment | Rehabilitation | [facility] OT | | | 2019 | | | | | +--------+ + + + + | 03/09/ | Office | Orthopedic Surgery | Jeffrey Gandhi, | | | 2019 | Visit | | [address] [facility] | | | | | | [place] [address] | | | | | | [phone] | | | | | | | [...] [place] | | | | | | [address] | | | | | | [phone] | | | | | | | [...] | | | | | [place] [address] | | | | | | [phone] | | | | | | | | | | | | Azul Yeboah, | | | | | | MD [address] | | | | | | [place] | | | | | | [place] [address] | | | | | | [phone] | | | | | | | [...] | | | | | | [place] [address] | | | | | | [phone] | | | | | | | [...]
--- OUTSIDE RECORDS SUMMARY | ~2020-02-18 | XMS | Encounter Summary ---
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 female that [...] BID 60 tablet 3 Cholecalciferol (VITAMIN D3) 58493 units TABS Take 1 tablet by mouth [...] cancer Maternal Grandmother Heart attack Maternal Aunt [place] Social History Social History Marital status: Single [...] and their vital signs recorded by my pharmacy innovation assistant today, leslie s found in this chart note. Electronically signed by: Emily Mittal DPM 12/06/2018 at 12:42 Note: Part of this report was transcribed using voice recognition software. Every effort wa s made to ensure accuracy. However, inadvertent computerized solar installation technician errors may be pre sent. CC: [...] | | 2019 | | | DO [facility] | | | | | | [place] [address] | | | | | | [phone] | | | | | | | | | | | | Julia Fisher, | | | | | | PT | | +--------+ + + + + | 02/18/ | Appointment | Rehabilitation | Erika Ernst, | | | 2019 | | | DO [address] | | | | | | [place] [address] | | | | | | [phone] | | | | | | | | | | | | [facility] | | +--------+ + + + + | 02/25/ | Office | Primary Care | Erika Ernst, | | | 2019 | Visit | | DO [address] [place] | | | | | | [place] [address] | | | | | | [phone] | | | | | | | [...] | | | | | [place] [address] | | | | | | [phone] | | | | | | | | +--------+ + + + + | 02/27/ | Appointment | Radiology | Dhara, | | | 2019 | | | DWAINE Ross [address] | | | | | | 4TH [facility] [place], | | | | | | [place] [address] | | | | | | [phone] | | | | | | | [...] | | | | | [place] [address] | | | | | | [phone] | | | | | | | [...] [place] | | | | | | [address] | | | | | | [phone] | | | | | | | [...] [address] | | | | | | [phone] | | | | | | | | | | | | Azul Yeboah, | | | | | | MD [address] | | | | | | [place] | | | | | | [place] [address] | | | | | | [phone] | | | | | | | [...] | | | | | | [place] [address] | | | | | | [phone] | | | | | | | [...]
--- OUTSIDE RECORDS SUMMARY | ~2020-02-18 | XMS | Encounter Summary ---
Demographics + + + | Address | [address] | | | [place] [address] | + + + | Home Phone [...] Team Providers + +------+ + | Care Live Source Operator Name | Role | Phone | [...] 2019 | Support | [facility] | DO [address] | | | | | MEDICAL CL[facility]IC [facility] | [place] [address] | | | | | [address] [place], | [phone] | | | | | [place] [address] | | | | | | [phone] | | | +--------+ + + + [...] | | | | | [place] [address] | | | | | | [phone] | | | | | | | | | | | | Julia Fisher, | | | | | | PT | | +--------+ + + + + | 02/18/ | Appointment | Rehabilitation | Erika Ernst, | | | 2019 | | | DO [address] [place] | | | | | | [place] [address] | | | | | | [phone] | | | | | | | | | | | | [facility] | | +--------+ + + + + | 02/25/ | Office | Primary Care | Erika Ernst, | | | 2019 | Visit | | DO [address] [place] | | | | | | [place] [address] | | | | | | [phone] | | | | | | | [...] | | | | | [place] [address] | | | | | | [phone] | | | | | | | | +--------+ + + + + | 02/27/ | Appointment | Radiology | Dhara, | | | 2019 | | | DWAINE Ross [address] | | | | | | 4TH [facility], | | | | | | [place] [address] | | | | | | [phone] | | | | | | | | +--------+ + + + + | 03/04/ | Appointment | Rehabilitation | [facility] OT | | | 2019 | | | | | +--------+ + + + + | 03/09/ | Office | Orthopedic Surgery | Jeffrey Gandhi, | | | 2019 | Visit | | [address] | | | | | | [place] [address] | | | | | | [phone] | | | | | | | [...] [place] | | | | | | [address] | | | | | | [phone] | | | | | | | [...] | | | | | [place] [address] | | | | | | [phone] | | | | | | | | | | | | Azul Yeboah, | | | | | | MD [address] | | | | | | [place] | | | | | | [place] [address] | | | | | | [phone] | | | | | | | [...] | | | | | | [place] [address] | | | | | | [phone] | | | | | | | | +--------+ + + + + documented as of this encounter Visit Diagnoses Not on filedocumented in this encounter"
--- OUTSIDE RECORDS SUMMARY | ~2020-02-18 | XMS | Encounter Summary ---
Demographics + + + | Address | [address] | | | [place] [address] | + + + | Home Phone [...] Team Providers + +------+ + | Care Centrifuge Operator Name | Role | Phone | [...] | Luis Nichole MD | [facility]) | | 2019 | | HOSPITAL NEUROLOGY | [address] [place] | | | | | CLINIC [address] | [place] | | | | | [address] [place], | [address] | | | | | [place] [address] | | | | | | [phone] | | | +--------+ + + + [...] | | | | | [place] [address] | | | | | | [phone] | | | | | | | | | | | | Julia Fisher, | | | | | | PT | | +--------+ + + + + | 02/18/ | Appointment | Rehabilitation | Erika Ernst, | | | 2019 | | | DO [address] | | | | | | [place] [address] | | | | | | [phone] | | | | | | | | | | | | Genesis Ayon, OT | | +--------+ + + + + | 02/25/ | Office | Primary Care | Erika Ernst, | | | 2019 | Visit | | DO [address] [place] | | | | | | [place] [address] | | | | | | [phone] | | | | | | | [...] | | | | | [place] [address] | | | | | | [phone] | | | | | | | | +--------+ + + + + | 02/27/ | Appointment | Radiology | Dhara, | | | 2019 | | | DWAINE Ross [address] | | | | | | 4TH [facility], | | | | | | [place] [address] | | | | | | [phone] | | | | | | | | +--------+ + + + + | 03/04/ | Appointment | Rehabilitation | [facility] OT | | | 2019 | | | | | +--------+ + + + + | 03/09/ | Office | Orthopedic Surgery | Jeffrey Gandhi, | | 2019 | Visit | | [address] | | | | | | [place] [address] | | | | | | [phone] | | | | | | | [...] [place] | | | | | | [address] | | | | | | [phone] | | | | | | | [...] | | | | | [place] [address] | | | | | | [phone] | | | | | | | | | | | | Azul Yeboah, | | | | | | MD [address] | | | | | | [place] | | | | | | [place] [address] | | | | | | [phone] | | | | | | | [...] | | | | | | [place] [address] | | | | | | [phone] | | | | | | | | +--------+ + + + + documented as of this encounter Visit Diagnoses Not on filedocumented in this encounter"
--- OUTSIDE RECORDS SUMMARY | ~2020-02-18 | XMS | Encounter Summary ---
Demographics + + + | Address | [address] | | | [place] [address] | + + + | Home Phone [...] Team Providers + +------+ + | Care Breaker Table Worker Name | Role | Phone | [...] | | | 2019 | Support | [facility] | DWAINE Huynh | | | | | [facility] [address] | [address] [place] | | | | | [address] [place], | [place] [address] | | | | | [place] [address] | [phone] | | | | | [phone] | | | +--------+ + + + [...] | | | | | [place] [address] | | | | | | [phone] | | | | | | | | | | | | Julia Fisher, | | | | | | PT | | +--------+ + + + + | 02/18/ | Appointment | Rehabilitation | Erika Ernst, | | | 2019 | | | DO [address] [place] | | | | | | [place] [address] | | | | | | [phone] | | | | | | | | | | | | [facility] | | +--------+ + + + + | 02/25/ | Office | Primary Care | Erika Ernst, | | | 2019 | Visit | | DO [address] [place] | | | | | | [place] [address] | | | | | | [phone] | | | | | | | [...] | | | | | [place] [address] | | | | | | [phone] | | | | | | | | +--------+ + + + + | 02/27/ | Appointment | Radiology | Dhara, | | | 2019 | | | DWAINE Ross [address] | | | | | | [address] [place], | | | | | | [place] [address] | | | | | | [phone] | | | | | | | | +--------+ + + + + | 03/04/ | Appointment | Rehabilitation | [facility] OT | | | 2019 | | | | | +--------+ + + + + | 03/09/ | Office | Orthopedic Surgery | Jeffrey Gandhi, | | 2019 | Visit | | [place] [address] | | | | | | [place] [address] | | | | | | [phone] | | | | | | | [...] [place] | | | | | | [address] | | | | | | [phone] | | | | | | | [...] | | | | | [place] [address] | | | | | | [phone] | | | | | | | | | | | | Azul Yeboah, | | | | | | MD [address] | | | | | | [place] | | | | | | [place] [address] | | | | | | [phone] | | | | | | | [...] | | | | | | [place] [address] | | | | | | [phone] | | | | | | | | +--------+ + + + + documented as of this encounter Visit Diagnoses Not on filedocumented in this encounter"
--- OUTSIDE RECORDS SUMMARY | ~2020-02-18 | XMS | Encounter Summary ---
Demographics + + + | Address | [address] | | | [place] [address] | + + + | Home Phone [...] Providers + +------+ + | Care Business Control Manager Name | Role | Phone | [...] | | | of left | [place] [address] | [place], [place] | | | | | ankle, | Phone: | [address] | | | | | subsequent | [phone] | Phone: | | | | | encounter | Fax: | [phone] | | | | | Procedures | [phone] | Fax: | | | | | [place] | | [phone] | +--------+ + + + + + [...] | | | of left | [place] [address] | [address] | | | | | ankle, | Phone: | Phone: | | | | | subsequent | [phone] | [phone] | | | | | encounter | Fax: | Fax: | | | | | Procedures | [phone] | [phone] | | | | | MRI Ankle [...] | MEDICAL CLIN[facility] [address] | [place] [address] | ligament of left | | | | [address] [place], | [phone] | ankle, subsequent | | | | [place] [address] | | encounter (Primary | | | | [phone] | | Dx) | +--------+---------+ + + [...] slipped on twigs in the parking lo [employer] at work on May 31, 2018 and [...] | 2019 | | | DO [address] | | | | | | [facility], [place] [address] | | | | | | [phone] | | | | | | | | | | | | Julia Fisher, | | | | | | PT | | +--------+ + + + + | 02/18/ | Appointment | Rehabilitation | Erika Ernst, | | | 2019 | | | DO [address] [place] | | | | | | [place] [address] | | | | | | [phone] | | | | | | | | | | | | [facility] | | +--------+ + + + + | 02/25/ | Office | Primary Care | Erika Ernst, | | | 2019 | Visit | | DO [address] [place] | | | | | | [place] [address] | | | | | | [phone] | | | | | | | [...] | | | | | [place] [address] | | | | | | [phone] | | | | | | | | +--------+ + + + + | 02/27/ | Appointment | Radiology | Dhara, | | | 2019 | | | DWAINE Ross [address] | | | | | | [address] [place], | | | | | | [place] [address] | | | | | | [phone] | | | | | | | [...] | | | | | [place] [address] | | | | | | [phone] | | | | | | | [...] [place] | | | | | | [address] | | | | | | [phone] | | | | | | | [...] [address] | | | | | | [phone] | | | | | | | | | | | | Azul Yeboah, | | | | | | MD [address] | | | | | | [place] | | | | | | [place] [address] | | | | | | [phone] | | | | | | | [...] | | | | | | [place] [address] | | | | | | [phone] | | | | | | | [...]
--- OUTSIDE RECORDS SUMMARY | ~2020-02-18 | XMS | Encounter Summary ---
Demographics + + + | Address | [address] | | | [place] [address] | + + + | Home Phone [...] Providers + +------+ + | Care Business Solutions Consultant Name | Role | Phone | [...] | | | right ankle, | [place] [address] | [place] [address] | | | | | subsequent | Phone: | Phone: | | | | | encounter | [phone] | [phone] | | | | | Procedures | Fax: | Fax: | | | | | PT TREAT | [phone] | [phone] | + +--------+ + + + + [...] [address] [place] | [place] [address] | ankle, subsequent | | | | [place], [place] | [phone] | encounter (Primary | | | | [address] | | Dx) | | | | [phone] | Julia Fisher, | | | | [...] Last Name Julia Fisher, PT Facility Name [facility] Billing Provider HENNY [id number] Provider Address, [facility] Code [address] [place] [address] Billing Provider SHIRA [id number] PATIENT INFORMATION All sections must be completed Patient Last Name, First Name ANDREA SUH Date of 1990 Mailing Address [address] [place] [address] Coverage Information Payor/Plan Subscriber Name Rel Member # Group # [facility]* ANDREA SUH CLA* [id number] [address] CLINICAL INFORMATION Primary ICD/Diagnosis Code: Encounter Diagnoses [...] Light PT - 02/11/2020 3:00 PM PDT [facility] PT [address] [place] [address] Physical Therapy Progress Assessment/Updated POC Date: 02/11/2020 [...] r esisted ankle 4 way. koosh ball oyster picker to improve intrinsics. Assessment Progress summary [...] Certification To: 05/05/2020 Treatment Plan/Interventions PT EvaluationPT Re-[id number] - Therapeutic Vvpampgu36000 - Neuromuscular Reeducation9 7116 - Gait Rjloakrx80971 - Therapeutic Rmvaycjcjg88683 - Aquatic Therapy/Vplmqngww97120 - U mwivuhmzu08202/G0283 - Electrical Stimulation, Vkufigincm53557 - Electrical Stimulation, Att fpgaz79410 - TENS Application/Instruction Patient and/or family has indicated understanding of treatment needs and actively participa everardo in the creation of this plan for care. Electronically signed by: Julia Fisher PT, 02/12/2020 2:00 PM Patient Name: Andrea Suh/: 1990/ signed by Erika Ernst DO at 02/12/2020 2:29 PM PDTdocumented in this encounter Plan of Treatment +--------+ + + + + | Date | Type | Specialty | Care Team | Description | +--------+ + + + + | 02/18/ | Appointment | Rehabilitation | Erika Ernst, | | 2019 | | | DO [address] [place] | | | | | | [place] [address] | | | | | | [phone] | | | | | | | | | | | | Julia Fisher, | | | | | | PT | | +--------+ + + + + | 02/18/ | Appointment | Rehabilitation | Erika Ernst, | | | 2019 | | | DO [address] [place] | | | | | | [place] [address] | | | | | | [phone] | | | | | | | | | | | | [facility] | | +--------+ + + + + | 02/25/ | Office | Primary Care | Erika Ernst, | | | 2019 | Visit | | DO [address] [place] | | | | | | [place] [address] | | | | | | [phone] | | | | | | | [...] | | | | | [place] [address] | | | | | | [phone] | | | | | | | | +--------+ + + + + | 02/27/ | Appointment | Radiology | Dhara, | | | 2019 | | | DWAINE [address] | | | | | | 4TH [facility], | | | | | | [place] [address] | | | | | | [phone] | | | | | | | | +--------+ + + + + | 03/04/ | Appointment | Rehabilitation | [facility] OT | | | 2019 | | | | | +--------+ + + + + | 03/09/ | Office | Orthopedic Surgery | Jeffrey Gandhi, | | 2019 | Visit | | [address] | | | | | | [place] [address] | | | | | | [phone] | | | | | | | [...] [place] | | | | | | [address] | | | | | | [phone] | | | | | | | [...] | | | | | [place] [address] | | | | | | [phone] | | | | | | | | | | | | Azul Yeboah, | | | | | | MD [address] | | | | | | [place] | | | | | | [place] [address] | | | | | | [phone] | | | | | | | [...] | | | | | | [place] [address] | | | | | | [phone] | | | | | | | | +--------+ + + + + documented as of this encounter Visit Diagnoses + + | Diagnosis | + + | Sprain of deltoid ligament of right ankle, subsequent encounter - Primary | + + documented in this encounter
--- OUTSIDE RECORDS SUMMARY | ~2020-02-18 | XMS | Encounter Summary ---
Demographics + + + | Address | [address] | | | [place] [address] | + + + | Home Phone [...] Team Providers + +------+ + | Care Irrigation Laborer Name | Role | Phone | [...] | | | to excess | [place] [address] | | | | | | calories | Phone: | | | | | | without | [phone] | | | | | | serious | Fax: | | | | | | comorbidity | [phone] | | | | | | with [...] | MEDICAL [facility] [address] | [place] [address] | excess calories | | | | [address] [place], | [phone] | without serious | | | | [place] [address] | | comorbidity with | | | | [phone] | | body mass index | | [...] | | | | | [place] [address] | | | | | | [phone] | | | | | | | | | | | | Julia Fisher, | | | | | | PT | | +--------+ + + + + | 02/18/ | Appointment | Rehabilitation | Erika Ernst, | | | 2019 | | | DO [address] | | | | | | [place] [address] | | | | | | [phone] | | | | | | | | | | | | [facility] | | +--------+ + + + + | 02/25/ | Office | Primary Care | Erika Ernst, | | | 2019 | Visit | | DO [address] | | | | | | [place] [address] | | | | | | [phone] | | | | | | | [...] | | | | | | [place] [address] | | | | | | [phone] | | | | | | | | +--------+ + + + + | 02/27/ | Appointment | Radiology | Dhara, | | | 2019 | | | DWAINE [address] | | | | | | [address] [facility] [place], | | | | | | [place] [address] | | | | | | [phone] | | | | | | | | +--------+ + + + + | 03/04/ | Appointment | Rehabilitation | [facility] | | 2019 | | | | | +--------+ + + + + | 03/09/ | Office | Orthopedic Surgery | Jeffrey Gandhi, | | | 2019 | Visit | | [address] | | | | | | [place] [address] | | | | | | [phone] | | | | | | | [...] [place] | | | | | | [address] | | | | | | [phone] | | | | | | | [...] | | | | | [place] [address] | | | | | | [phone] | | | | | | | | | | | | Azul Yeboah, | | | | | | MD [address] | | | | | | [place] [place] | | | | | | [place] [address] | | | | | | [phone] | | | | | | | [...] | | | | | | [place] [address] | | | | | | [phone] | | | | | | | [...] | | | 59.9 in adult ([facility]LY [facility]) | | | | | | Essential | | | | | | hypertension | | + + +--------+ + + documented as of this encounter Visit Diagnoses + + | Diagnosis | + + | Class 3 severe obesity due to excess calories without serious comorbidity with body | | mass index (BMI) of 50.0 to 59.9 in adult ([facility]) - Primary | + + | Essential hypertension Unspecified essential hypertension | + + documented in this encounter"
--- OUTSIDE RECORDS SUMMARY | ~2020-02-18 | XMS | Encounter Summary ---
Demographics + + + | Address | [address] | | | [place] [address] | + + + | Home Phone [...] Team Providers + +------+ + | Care Relay Associate Name | Role | Phone | + +------+ + | Erika Enrst DO | PCP | | + +------+ [...] | [address] | [place] [address] | | | | | [place], [place] | [phone] | | | | | [address] | | | | | | [phone] | | | +--------+ + + + [...] | 04/12/20 | | | (VITAMIN D3) 69550 | mouth Once a week | tablet [...] | | | | | [place] [address] | | | | | | [phone] | | | | | | | | | | | | Julia Fisher, | | | | | | PT | | +--------+ + + + + | 02/18/ | Appointment | Rehabilitation | Erika Ernst, | | | 2019 | | | DO [address] | | | | | | [place] [address] | | | | | | [phone] | | | | | | | | | | | | Genesis Ayon OT | | +--------+ + + + + | 02/25/ | Office | Primary Care | Erika Ernst, | | | 2019 | Visit | | DO [address] | | | | | | [place] [address] | | | | | | [phone] | | | | | | | [...] | | | | | [place] [address] | | | | | | [phone] | | | | | | | | +--------+ + + + + | 02/27/ | Appointment | Radiology | Dhara, | | | 2019 | | | [address] Ross [address] | | | | [address] [place], | | | | | | [place] [address] | | | | | | [phone] | | | | | | | | +--------+ + + + + | 03/04/ | Appointment | Rehabilitation | Genesis Ayon OT | | | 2019 | | | | | +--------+ + + + + | 03/09/ | Office | Orthopedic Surgery | Jeffrey Gandhi, | | | 2019 | Visit | | [address] | | | | | | [place] [address] | | | | | | [phone] | | | | | | | [...] [place] | | | | | | [address] | | | | | | [phone] | | | | | | | [...] | | | | | [place] [address] | | | | | | [phone] | | | | | | | | | | | | Azul Yeboah, | | | | | | MD [address] | | | | | | [place] | | | | | | [place] [address] | | | | | | [phone] | | | | | | | [...] | | | | | | [place] [address] | | | | | | [phone] | | | | | | | [...]
--- OUTSIDE RECORDS SUMMARY | ~2020-02-18 | XMS | Encounter Summary ---
Demographics + + + | Address | [address] | | | [place] [address] | + + + | Home Phone [...] Team Providers + +------+ + | Care Bakery Machine Mechanic Name | Role | Phone [...] Advice Only | | 2019 | | [facility] | RN | | | | | [facility] [address] | | | | | | [address] [facility] [place], | | | | | | [place] [address] | | | | | | [phone] | | | +--------+ + + + [...] | | | | | [place] [address] | | | | | | [phone] | | | | | | | | | | | | Julia Fisher, | | | | | | PT | | +--------+ + + + + | 02/18/ | Appointment | Rehabilitation | Erika Ernst, | | | 2019 | | | DO [address] | | | | | | [place] [address] | | | | | | [phone] | | | | | | | | | | | | Genesis Ayon OT | | +--------+ + + + + | 02/25/ | Office | Primary Care | Erika Ernst, | | | 2019 | Visit | | DO [address] | | | | | | [place] [address] | | | | | | [phone] | | | | | | | [...] | | | | | [place] [address] | | | | | | [phone] | | | | | | | | +--------+ + + + + | 02/27/ | Appointment | Radiology | Dhara, | | | 2019 | | | [address] | | | | | | [address] [facility] [place], | | | | | | [place] [address] | | | | | | [phone] | | | | | | | [...] [address] | | | | | | [place] [address] | | | | | | [phone] | | | | | | | [...] [place] | | | | | | [address] | | | | | | [phone] | | | | | | | [...] | | | | | [place] [address] | | | | | | [phone] | | | | | | | | | | | | Azul Yeboah, | | | | | | MD [address] | | | | | | [place] | | | | | | [place] [address] | | | | | | [phone] | | | | | | | | +--------+ + + + + | 04/08/ | Appointment | Nutrition | Janel Webster | | | 2019 | | | G, RD | | +--------+ + + + + | 05/21/ | Office | Neurology | Dhara, | | | 2019 | Visit | | Karyanne, SPECIAL EDUCATION MATH TEACHER [address] | | | | | | [address] [place], | | | | | | [place] [address] | | | | | | [phone] | | | | | | | | +--------+ + + + + documented as of this encounter Visit Diagnoses Not on filedocumented in this encounter"
--- OUTSIDE RECORDS SUMMARY | ~2020-02-18 | XMS | Encounter Summary ---
Demographics + + + | Address | [address] | | | [place] [address] | + + + | Home Phone [...] + +------+ + | Care Director Of Instructional Technology Name | Role | Phone | + [...] | Diagnoses | [facility] | | | Services | Surgery | Sprain of | Erika A, DO | Orthopedic | | | Required | | calcaneofibu | [address] | [address] | | | | | lar ligament | [place], | [place] | | | | | of left | [place] [address] | [place], [place] | | | | | ankle, | Phone: | [phone] | | | | | initial | [phone] | Phone: | | | | | encounter | Fax: | [phone] | | | | | Procedures | [phone] | Fax: | | | | | [place] | | [phone] | +--------+ + + + + + [...] | | | of left | [place] [address] | [place] [address] | | | | | ankle, | Phone: | Phone: | | | | | initial | [phone] | [phone] | | | | | encounter | Fax: | Fax: | | | | | Procedures | [phone] | [phone] | | | | | PT EVAL [...] | [facility] [address] | [place] [address] | ligament of left | | | | [address] [place], | [phone] | ankle, initial | | | | [place] [address] | | encounter (Primary | | | | [phone] | | Dx) | +--------+---------+ + + [...] daily. 30 tablet 0 Cholecalciferol (VITAMIN D3) 65336 units TABS Take 1 tablet by mouth [...] | | | | | [place] [address] | | | | | | [phone] | | | | | | | | | | | | Julia Fisher, | | | | | | PT | | +--------+ + + + + | 02/18/ | Appointment | Rehabilitation | Erika Ernst, | | | 2019 | | | DO [address] | | | | | | [place] [address] | | | | | | [phone] | | | | | | | | | | | | Genesis Ayon, OT | | +--------+ + + + + | 02/25/ | Office | Primary Care | Erika Ernst, | | | 2019 | Visit | | DO [address] | | | | | | [place] [address] | | | | | | [phone] | | | | | | | [...] | | | | | [place] [address] | | | | | | [phone] | | | | | | | | +--------+ + + + + | 02/27/ | Appointment | Radiology | Dhara, | | | 2019 | | | DWAINE Ross [address] | | | [address] [place], | | | | | | [place] [address] | | | | | | [phone] | | | | | | | | +--------+ + + + + | 03/04/ | Appointment | Rehabilitation | Genesis Ayon OT | | | 2019 | | | | | +--------+ + + + + | 03/09/ | Office | Orthopedic Surgery | Jeffrey Gandhi, | | | 2019 | Visit | | [address] [facility] | | | | | | [place] [address] | | | | | | [phone] | | | | | | | [...] [place] | | | | | | [address] | | | | | | [phone] | | | | | | | [...] [address] | | | | | | [phone] | | | | | | | | | | | | Azul Yeboah, | | | | | | MD [address] | | | | | | [place] | | | | | | [place] [address] | | | | | | [phone] | | | | | | | [...] | | | | | | [place] [address] | | | | | | [phone] | | | | | | | [...]
--- OUTSIDE RECORDS SUMMARY | ~2020-02-18 | XMS | Encounter Summary ---
Demographics + + + | Address | [address] | | | [place] [address] | + + + | Home Phone [...] Team Providers + +------+ + | Care Fraud Analyst Name | Role | Phone | [...] | | | right wrist | [place] [address] | [place], | | | | | | Phone: | [place] [address] | | | | | | [phone] | Phone: | | | | | | Fax: | [phone] | | | | | | [phone] | Fax: | | | | | | | [phone] | + + + + + + [...] | MEDICAL [facility]IN[facility] [address] | [place] [address] | wrist (Primary Dx) | | | | [address] [place], | [phone] | | | | | [place] [address] | | | | | | [phone] | | | +--------+ + + + [...] | 2019 | | | DO [address] | | | | | | [place] [address] | | | | | | [phone] | | | | | | | | | | | | Julia Fisher, | | | | | | PT | | +--------+ + + + + | 02/18/ | Appointment | Rehabilitation | Erika Ernst, | | | 2019 | | | DO [address] | | | | | | [place] [address] | | | | | | [phone] | | | | | | | | | | | | Genesis Ayon OT | | +--------+ + + + + | 02/25/ | Office | Primary Care | Erika Ernst, | | | 2019 | Visit | | DO [address] | | | | | | [place] [address] | | | | | | [phone] | | | | | | | [...] | | | | | [place] [address] | | | | | | [phone] | | | | | | | | +--------+ + + + + | 02/27/ | Appointment | Radiology | Dhara, | | | 2019 | | | DWAINE [address] | | | | | | 4TH [facility], | | | | | | [place] [address] | | | | | | [phone] | | | | | | | [...] | | | | [place], [place] [address] | | | | | | [phone] | | | | | | | [...] [place] | | | | | | [address] | | | | | | [phone] | | | | | | | [...] | | | | | [place] [address] | | | | | | [phone] | | | | | | | | | | | | Azul Yeboah, | | | | | | MD [address] | | | | | | [place] | | | | | | [place] [address] | | | | | | [phone] | | | | | | | [...] | | | | | | [place] [address] | | | | | | [phone] | | | | | | | [...]
--- OUTSIDE RECORDS SUMMARY | ~2020-02-18 | XMS | Encounter Summary ---
Demographics + + + | Address | [address] | | | [place] [address] | + + + | Home Phone [...] Team Providers + +------+ + | Care Benefits Manager Name | Role | Phone | [...] [place] | | | | | | [address] | (Fax) | | | | | [phone] | | | +--------+ + + + [...] | | | | | [place] [address] | | | | | | [phone] | | | | | | | | | | | | Julia Fisher, | | | | | | PT | | +--------+ + + + + | 02/18/ | Appointment | Rehabilitation | Erika Ernst, | | | 2019 | | | DO [address] | | | | | | [place] [address] | | | | | | [phone] | | | | | | | | | | | | Genesis Ayon OT | | +--------+ + + + + | 02/25/ | Office | Primary Care | Erika Ernst, | | | 2019 | Visit | | DO [address] | | | | | | [place] [address] | | | | | | [phone] | | | | | | | [...] | | | | | [place] [address] | | | | | | [phone] | | | | | | | | +--------+ + + + + | 02/27/ | Appointment | Radiology | Dhara, | | | 2019 | | | [address] | | | | | | 4TH [facility], | | | | | | [place] [address] | | | | | | [phone] | | | | | | | | +--------+ + + + + | 03/04/ | Appointment | Rehabilitation | Genesis Ayon OT | | | 2019 | | | | | +--------+ + + + + | 03/09/ | Office | Orthopedic Surgery | Jeffrey Gandhi, | | | 2019 | Visit | | [address] | | | | | | [place] [address] | | | | | | [phone] | | | | | | | [...] [place] | | | | | | [address] | | | | | | [phone] | | | | | | | [...] | | | | | [place] [address] | | | | | | [phone] | | | | | | | | | | | | Azul Yeboah, | | | | | | MD [address] | | | | | | [place] | | | | | | [place] [address] | | | | | | [phone] | | | | | | | [...] | | | | | | [place] [address] | | | | | | [phone] | | | | | | | | +--------+ + + + + documented as of this encounter Visit Diagnoses Not on filedocumented in this encounter"
--- OUTSIDE RECORDS SUMMARY | ~2020-02-18 | XMS | Encounter Summary ---
Demographics + + + | Address | [address] | | | [place] [address] | + + + | Home Phone [...] Providers + +------+ + | Care Collections Manager Name | Role | Phone | [...] CENTER [address] | [facility] | | | | | DR [place] | [facility] [place] [address] | | | | | [address] | [phone] | | | | | [phone] | | | +--------+ + + + [...] | | | | | [place] [address] | | | | | | [phone] | | | | | | | | | | | | Julia Fisher, | | | | | | PT | | +--------+ + + + + | 02/18/ | Appointment | Rehabilitation | Erika Ernst, | | | 2019 | | | DO [address] | | | | | | [place] [address] | | | | | | [phone] | | | | | | | | | | | | Genesis Ayon OT | | +--------+ + + + + | 02/25/ | Office | Primary Care | Erika Ernst, | | | 2019 | Visit | | DO [address] | | | | | | [place] [address] | | | | | | [phone] | | | | | | | [...] | | | | | [place] [address] | | | | | | [phone] | | | | | | | | +--------+ + + + + | 02/27/ | Appointment | Radiology | Dhara, | | | 2019 | | | D[address] | | | | | | 4TH [facility], | | | | | | [place] [address] | | | | | | [phone] | | | | | | | | +--------+ + + + + | 03/04/ | Appointment | Rehabilitation | Genesis Ayon OT | | | 2019 | | | | | +--------+ + + + + | 03/09/ | Office | Orthopedic Surgery | Jeffrey Gandhi, | | | 2019 | Visit | | [address] | | | | | | [place] [address] | | | | | | [phone] | | | | | | | [...] [place] | | | | | | [address] | | | | | | [phone] | | | | | | | [...] | | | | | [place] [address] | | | | | | [phone] | | | | | | | | | | | | Azul Yeboah, | | | | | | MD [address] | | | | | | [place] | | | | | | [place] [address] | | | | | | [phone] | | | | | | | [...] | | | | | | [place] [address] | | | | | | [phone] | | | | | | | | +--------+ + + + + documented as of this encounter Visit Diagnoses Not on filedocumented in this encounter"
--- OUTSIDE RECORDS SUMMARY | ~2020-02-18 | XMS | Encounter Summary ---
Demographics + + + | Address | [address] | | | [place] [address] | + + + | Home Phone [...] + +------+ + | Care Chain Maker Loom Control Name | Role | Phone | [...] [facility] | DO [address] [place] | Dx); Asthma due to | | | | [facility] [address] | [place] [address] | environmental | | | | [address] [place], | [phone] | allergies | | | | [place] [address] | | | | | | [phone] | | | +--------+---------+ + + + [...] weeks ago and went to ER in [place] but has recovered. No chest pain or [...] [address] | | | | | | [phone] | | | | | | | | | | | | Julia Fisher, | | | | | | PT | | +--------+ + + + + | 02/18/ | Appointment | Rehabilitation | Erika Ernst, | | | 2019 | | | DO [address] | | | | | | [place] [address] | | | | | | [phone] | | | | | | | | | | | | [facility] Ayon OT | | +--------+ + + + + | 02/25/ | Office | Primary Care | Erika Ernst, | | | 2019 | Visit | | DO [address] | | | | | | [place] [address] | | | | | | [phone] | | | | | | | [...] | | | | | | [place] [address] | | | | | | [phone] | | | | | | | | +--------+ + + + + | 02/27/ | Appointment | Radiology | Dhara, | | | 2019 | | | DWAINE Ross [address] | | | | | | [address] [place], | | | | | | [place] [address] | | | | | | [phone] | | | | | | | [...] [place] | | | | | | [place] [address] | | | | | | [phone] | | | | | | | [...] [place] | | | | | | [address] | | | | | | [phone] | | | | | | | [...] [address] | | | | | | [phone] | | | | | | | | | | | | Azul Yeboah, | | | | | | MD [address] | | | | | | [place] | | | | | | [place] [address] | | | | | | [phone] | | | | | | | [...] | | | | | | [place] [address] | | | | | | [phone] | | | | | | | | +--------+ + + + + documented as of this encounter Visit Diagnoses + + | Diagnosis | + + | Sunburn - Primary | + + | Asthma due to environmental allergies | + + documented in this encounter
--- OUTSIDE RECORDS SUMMARY | ~2020-02-18 | XMS | Encounter Summary ---
Demographics + + + | Address | [address] | | | [place] [address] | + + + | Home Phone [...] Providers + +------+ + | Care Public Safety Director Name | Role | Phone | + +------+ + PCP | Unavailable | + +------+ + Encounter Details +--------+ + + + + | Date | Type | Department | Care Team | Description | +--------+ + + + + | 04/12/ | [facility] | [facility] | Jenise Benitez, | | | 2016 | Encounter | [facility] | SCIENTIFIC INFORMATICS ANALYST [address] | | | | | MEDICAL [facility] [address] | [place] [address] | | | | | [address] [place], | [phone] | | | | | [place] [address] | | | | | | [phone] | | | +--------+ + + + [...] | | 2020 | | | [place] [address] [place] [address] | | | | | | [place], [place] [address] | | | | | | [phone] | | | | | | | | | | | | Julia Fisher, | | | | | | PT | | +--------+ + + + + | 02/18/ | Appointment | Rehabilitation | Erika Ernst, | | | 2019 | | | DO [address] | | | | | | [place] [address] | | | | | | [phone] | | | | | | | | | | | | Genesis Ayon, SUSAN | | +--------+ + + + + | 02/25/ | Office | Primary Care | Erika Ernst, | | | 2019 | Visit | | DO [address] [place] | | | | | | [place] [address] | | | | | | [phone] | | | | | | | [...] | | | | | [place] [address] | | | | | | [phone] | | | | | | | | +--------+ + + + + | 02/27/ | Appointment | Radiology | Dhara, | | | 2019 | | | [address] | | | | | | [address] [place], | | | | | | [place] [address] | | | | | | [phone] | | | | | | | [...] | | | | | [place] [address] | | | | | | [phone] | | | | | | | [...] [place] | | | | | | [address] | | | | | | [phone] | | | | | | | [...] | | | | | [place] [address] | | | | | | [phone] | | | | | | | | | | | | Azul Yeboah, | | | | | | MD [address] | | | | | | [place] | | | | | | [place] [address] | | | | | | [phone] | | | | | | | [...] | | | | | | [place] [address] | | | | | | [phone] | | | | | | | | +--------+ + + + + documented as of this encounter Visit Diagnoses Not on filedocumented in this encounter"
--- OUTSIDE RECORDS SUMMARY | ~2020-02-18 | XMS | Encounter Summary ---
Demographics + + + | Address | [address] | | | [place] [address] | + + + | Home Phone [...] Team Providers + +------+ + | Care Sixth Grade Teacher Name | Role | Phone | [...] | | | | disorder) | [place] [address] | [address] | | | | | | Phone: | [facility], [place] | | | | | | [phone] | [address] | | | | | | Fax: | Phone: | | | | | | [phone] | [phone] | | | | | | | Fax: | | | | | | | [phone] | + + + + + + [...] Other | | 2017 | | [facility] | [address] | | | | | MEDICAL CLIN[facility] [address] | [place] [address] | | | | | [address] [place], | [phone] | | | | | [place] [address] | | | | | | [phone] | | | +--------+ + + + [...] | | 2019 | | | DO [address] [place] [address] | | | | | | [place] [address] | | | | | | [phone] | | | | | | | | | | | | Julia Fisher, | | | | | | PT | | +--------+ + + + + | 02/18/ | Appointment | Rehabilitation | Erika Ernst, | | | 2019 | | | DO [address] [place] | | | | | | [place] [address] | | | | | | [phone] | | | | | | | | | | | | Genesis Ayon, OT | | +--------+ + + + + | 02/25/ | Office | Primary Care | Erika Ernst, | | | 2019 | Visit | | DO [address] [place] | | | | | | [place] [address] | | | | | | [phone] | | | | | | | [...] | | | | | [place] [address] | | | | | | [phone] | | | | | | | | +--------+ + + + + | 02/27/ | Appointment | Radiology | Dhara, | | | 2019 | | | [address] | | | | | | [address] [place], | | | | | | [place] [address] | | | | | | [phone] | | | | | | | [...] | | | | | [place] [address] | | | | | | [phone] | | | | | | | [...] [place] | | | | | | [address] | | | | | | [phone] | | | | | | | [...] | | | | | [place] [address] | | | | | | [phone] | | | | | | | | | | | | Azul Yeboah, | | | | | | MD [address] | | | | | | [place] | | | | | | [place] [address] | | | | | | [phone] | | | | | | | [...] | | | | | | [place] [address] | | | | | | [phone] | | | | | | | [...]
--- OUTSIDE RECORDS SUMMARY | ~2020-02-18 | XMS | Encounter Summary ---
Demographics + + + | Address | [address] | | | [place] [address] | + + + | Home Phone [...] Team Providers + +------+ + | Care Acoustical Tile Drill Press Operator Name | Role | Phone [...] Medication Refill | | 2017 | | [facility] | DO [address] | | | | | MEDICAL CLIN[facility] [address] | [place] [address] | | | | | [address] [place], | [phone] | | | | | [place] [address] | | | | | | [phone] | | | +--------+--------+ + + + [...] | | | | | [place] [address] | | | | | | [phone] | | | | | | | | | | | | Julia Fisher, | | | | | | PT | | +--------+ + + + + | 02/18/ | Appointment | Rehabilitation | Erika Ernst, | | | 2019 | | | DO [address] [place] | | | | | | [place] [address] | | | | | | [phone] | | | | | | | | | | | | Genesis Ayon OT | | +--------+ + + + + | 02/25/ | Office | Primary Care | Erika Ernst, | | | 2019 | Visit | | DO [address] [place] | | | | | | [place] [address] | | | | | | [phone] | | | | | | | [...] | | | | | [place] [address] | | | | | | [phone] | | | | | | | | +--------+ + + + + | 02/27/ | Appointment | Radiology | Dhara, | | | 2019 | | | [address] | | | | | | 4TH [facility], | | | | | | [place] [address] | | | | | | [phone] | | | | | | | [...] | | | | | [place] [address] | | | | | | [phone] | | | | | | | [...] [place] | | | | | | [address] | | | | | | [phone] | | | | | | | [...] | | | | | [place] [address] | | | | | | [phone] | | | | | | | | | | | | Azul Yeboah, | | | | | | MD [address] | | | | | | [place] | | | | | | [place] [address] | | | | | | [phone] | | | | | | | [...] | | | | | | [place] [address] | | | | | | [phone] | | | | | | | | +--------+ + + + + documented as of this encounter Visit Diagnoses Not on filedocumented in this encounter"
--- OUTSIDE RECORDS SUMMARY | ~2020-02-18 | XMS | Encounter Summary ---
Demographics + + + | Address | [address] | | | [place] [address] | + + + | Home Phone [...] Providers + +------+ + | Care Spanish Translator Name | Role | Phone | + +------+ + PCP | Unavailable | + +------+ + Encounter Details +--------+ + + + + | Date | Type | Department | Care Team | Description | +--------+ + + + + | 04/27/ | [facility] | [facility] | Erika Ernst, | | | 2016 | Encounter | [facility] | DO [address] | | | | | [facility] [address] | [place] [address] | | | | | [address] [place], | [phone] | | | | | [place] [address] | | | | | | [phone] | | | +--------+ + + + [...] | | 2019 | | | DO [facility] | | | | | | [place], [place] [address] | | | | | | [phone] | | | | | | | | | | | | Julia Fisher, | | | | | | PT | | +--------+ + + + + | 02/18/ | Appointment | Rehabilitation | Erika Ernst, | | | 2019 | | | DO [address] | | | | | | [place] [address] | | | | | | [phone] | | | | | | | | | | | | Genesis Ayon, SUSAN | | +--------+ + + + + | 02/25/ | Office | Primary Care | Erika Ernst, | | | 2019 | Visit | | DO [address] | | | | | | [place] [address] | | | | | | [phone] | | | | | | | [...] | | | | | [place] [address] | | | | | | [phone] | | | | | | | | +--------+ + + + + | 02/27/ | Appointment | Radiology | Dhara, | | 2019 | | | DWA[address] | | | | | | [address] [facility] [place], | | | | | | [place] [address] | | | | | | [phone] | | | | | | | [...] | | | | | [place] [address] | | | | | | [phone] | | | | | | | [...] [place] | | | | | | [address] | | | | | | [phone] | | | | | | | [...] | | | | | [place] [address] | | | | | | [phone] | | | | | | | | | | | | Azul Yeboah, | | | | | | MD [address] | | | | | | [address] [place] | | | | | | [place] [address] | | | | | | [phone] | | | | | | | [...] | | | | | | [place] [address] | | | | | | [phone] | | | | | | | | +--------+ + + + + documented as of this encounter Visit Diagnoses Not on filedocumented in this encounter"
--- OUTSIDE RECORDS SUMMARY | ~2020-02-18 | XMS | Encounter Summary ---
Demographics + + + | Address | [address] | | | [place] [address] | + + + | Home Phone [...] Providers + +------+ + | Care Senior Mobile Solutions Architect Name | Role | Phone [...] [address] | [place] [address] | | | | | [place], [place] | [phone] | | | | | [address] | | | | | | [phone] | | | +--------+ + + + [...] | | | | | [place] [address] | | | | | | [phone] | | | | | | | | | | | | Julia Fisher, | | | | | | PT | | +--------+ + + + + | 02/18/ | Appointment | Rehabilitation | Erika Ernst, | | | 2019 | | | DO [address] | | | | | | [place] [address] | | | | | | [phone] | | | | | | | | | | | | [facility] | | +--------+ + + + + | 02/25/ | Office | Primary Care | Erika Ernst, | | | 2019 | Visit | | DO [address] | | | | | | [place] [address] | | | | | | [phone] | | | | | | | [...] | | | | | [place] [address] | | | | | | [phone] | | | | | | | | +--------+ + + + + | 02/27/ | Appointment | Radiology | Dhara, | | | 2019 | | | [address] | | | | | | [address] [facility], | | | | | | [place] [address] | | | | | | [phone] | | | | | | | | +--------+ + + + + | 03/04/ | Appointment | Rehabilitation | [facility] OT | | | 2019 | | | | | +--------+ + + + + | 03/09/ | Office | Orthopedic Surgery | Jeffrey Gandhi, | | | 2019 | Visit | | [address] [facility] | | | | | | [place] [address] | | | | | | [phone] | | | | | | | [...] [place] | | | | | | [address] | | | | | | [phone] | | | | | | | [...] | | | | | [place] [address] | | | | | | [phone] | | | | | | | | | | | | Azul Yeboah, | | | | | | MD [address] | | | | | | [place] | | | | | | [place] [address] | | | | | | [phone] | | | | | | | [...] | | | | | | [place] [address] | | | | | | [phone] | | | | | | | [...]
--- OUTSIDE RECORDS SUMMARY | ~2020-02-18 | XMS | Encounter Summary ---
Demographics + + + | Address | [address] | | | [place] [address] | + + + | Home Phone [...] Providers + +------+ + | Care Casino Floor Person Name | Role | Phone | + +------+ + | Erika Ernst DO | PCP | | + +------+ + Reason for Visit +---------+ + | Reason | Comments | +---------+ + | Testing | | +---------+ + Encounter Details +--------+ + + + + | Date | Type | Department | Care Team | Description | +--------+ + + + + | 01/23/ | Telephone | [place] [facility] | Keith Ernsta Joie, | Testing | | 2020 | | [facility] | DO [address] | | | | | [facility] [address] | [place] [address] | | | | | [address] [place], | [phone] | | | | | [place] [address] | | | | | | [phone] | | | +--------+ + + + [...] [address] | | | | | | [phone] | | | | | | | | | | | | Julia Fisher, | | | | | | PT | | +--------+ + + + + | 02/18/ | Appointment | Rehabilitation | Erika Ernst, | | | 2019 | | | DO [address] | | | | | | [place] [address] | | | | | | [phone] | | | | | | | | | | | | [facility] | | +--------+ + + + + | 02/25/ | Office | Primary Care | Erika Ernst, | | | 2019 | Visit | | DO [address] | | | | | | [place] [address] | | | | | | [phone] | | | | | | | [...] | | | | | | [place] [address] | | | | | | [phone] | | | | | | | | +--------+ + + + + | 02/27/ | Appointment | Radiology | Dhara, | | 2019 | | | [address] | | | | | | [address]TH [facility], | | | | | | [place] [address] | | | | | | [phone] | | | | | | | | +--------+ + + + + | 03/04/ | Appointment | Rehabilitation | [facility] | | | 2019 | | | | | +--------+ + + + + | 03/09/ | Office | Orthopedic Surgery | Jeffrey Gandhi, | | | 2019 | Visit | | [address] | | | | | | [place] [address] | | | | | | [phone] | | | | | | | [...] [place] | | | | | | [address] | | | | | | [phone] | | | | | | | [...] | | | | | [place] [address] | | | | | | [phone] | | | | | | | | | | | | Azul Yeboah, | | | | | | [address] | | | | | | [place] | | | | | | [place] [address] | | | | | | [phone] | | | | | | | [...] | | | | | | [place] [address] | | | | | | [phone] | | | | | | | | +--------+ + + + + documented as of this encounter Visit Diagnoses Not on filedocumented in this encounter"
--- OUTSIDE RECORDS SUMMARY | ~2020-02-18 | XMS | Encounter Summary ---
Demographics + + + | Address | [address] | | | [place] [address] | + + + | Home Phone [...] Team Providers + +------+ + | Care Big Data Software Engineer Name | Role | Phone [...] [place] | | | | | | [address] | | | | | | [phone] | | | +--------+ + + + [...] | 11/26/19 | | | (VITAMIN D3) 62467 | mouth Once a week | tablet [...] | | | | | [place] [address] | | | | | | [phone] | | | | | | | | | | | | Julia Fisher, | | | | | | PT | | +--------+ + + + + | 02/18/ | Appointment | Rehabilitation | Erika Ernst, | | | 2019 | | | DO [address] | | | | | | [place] [address] | | | | | | [phone] | | | | | | | | | | | | [facility] | | +--------+ + + + + | 02/25/ | Office | Primary Care | Erika Ernst, | | | 2019 | Visit | | DO [address] | | | | | | [place] [address] | | | | | | [phone] | | | | | | | [...] | | | | | [place] [address] | | | | | | [phone] | | | | | | | | +--------+ + + + + | 02/27/ | Appointment | Radiology | Dhara, | | | 2019 | | | [address] | | | | | | [address] [place], | | | | | | [place] [address] | | | | | | [phone] | | | | | | | [...] | | | | | [place] [address] | | | | | | [phone] | | | | | | | [...] [place] | | | | | | [address] | | | | | | [phone] | | | | | | | [...] | | | | | [place] [address] | | | | | | [phone] | | | | | | | | | | | | Azul Yeboah, | | | | | | MD [address] | | | | | | [place] | | | | | | [place] [address] | | | | | | [phone] | | | | | | | [...] | | | | | | [place] [address] | | | | | | [phone] | | | | | | | [...] C?MRN: | | | | | | [id number] | | | [id number] | | | riteri | | | [...] | | | St. | | | [place] | | | y | | | [...] | | | St. | | | [place] | | | y H. | | [...] | | | line | | | [place] | | | , [place] | | [...] | | | ent/e5 | | | [id number] | | | -b14d- | | | 444a-8 | | | 61c-15 | | | [id number] | | | 7078 | | | [...]
--- OUTSIDE RECORDS SUMMARY | ~2020-02-18 | XMS | Encounter Summary ---
Demographics + + + | Address | [address] | | | [place] [address] | + + + | Home Phone [...] Providers + +------+ + | Care Wood Heel Back Liner Name | Role | Phone | [...] | | | | [address] | [place] [address] | | | | | [place], [place] | [phone] | | | | | [address] | | | | | | [phone] | | | +--------+ + + + [...] | | | | | [place] [address] | | | | | | [phone] | | | | | | | [...] [address] | | | | | | [phone] | | | | | | | | | | | | Genesis Ayon, SUSAN | | +--------+ + + + + | 02/25/ | Office | Primary Care | Erika Ernst, | | | 2019 | Visit | | DO [address] [place] [address] | | | | | | [place] [address] | | | | | | [phone] | | | | | | | [...] | | | | | [place] [address] | | | | | | [phone] | | | | | | | | +--------+ + + + + | 02/27/ | Appointment | Radiology | Dhara, | | | 2019 | | | [address] | | | | | | [address] [place], | | | | | | [place] [address] | | | | | | [phone] | | | | | | | | +--------+ + + + + | 03/04/ | Appointment | Rehabilitation | [facility] OT | | | 2019 | | | | | +--------+ + + + + | 03/09/ | Office | Orthopedic Surgery | Jeffrey Gandhi, | | 2019 | Visit | | [address] | | | | | | [place] [address] | | | | | | [phone] | | | | | | | [...] [place] | | | | | | [address] | | | | | | [phone] | | | | | | | [...] | | | | | [place] [address] | | | | | | [phone] | | | | | | | | | | | | Azul Yeboah, | | | | | | MD [address] | | | | | | [place] | | | | | | [place] [address] | | | | | | [phone] | | | | | | | [...] | | | | | | [place] [address] | | | | | | [phone] | | | | | | | [...]
--- OUTSIDE RECORDS SUMMARY | ~2020-02-18 | XMS | Encounter Summary ---
Demographics + + + | Address | [address] | | | [place] [address] | + + + | Home Phone [...] Providers + +------+ + | Care Shot Fireman Name | Role | Phone | [...] 2019 | | [facility] | C, BUTTONHOLE FACER [address] | (Primary Dx) | | | | CENTER [address] | [address] [place] | | | | | [place] | [address] | | | | | [address] | | | | | | [phone] | | | +--------+ + + + [...] | | | | | [place] [address] | | | | | | [phone] | | | | | | | | | | | | Julia Fisher, | | | | | | PT | | +--------+ + + + + | 02/18/ | Appointment | Rehabilitation | Erika Ernst, | | | 2019 | | | DO [address] | | | | | | [place] [address] | | | | | | [phone] | | | | | | | | | | | | Genesis Ayon, SUSAN | | +--------+ + + + + | 02/25/ | Office | Primary Care | Erika Ernst, | | | 2019 | Visit | | DO [address] [place] [address] | | | | | | [place] [address] | | | | | | [phone] | | | | | | | [...] | | | | | [place] [address] | | | | | | [phone] | | | | | | | | +--------+ + + + + | 02/27/ | Appointment | Radiology | Dhara, | | | 2019 | | | [address] | | | | | | [address] [place], | | | | | | [place] [address] | | | | | | [phone] | | | | | | | | +--------+ + + + + | 03/04/ | Appointment | Rehabilitation | [facility] OT | | | 2019 | | | | | +--------+ + + + + | 03/09/ | Office | Orthopedic Surgery | Jeffrey Gandhi, | | | 2019 | Visit | | [address] | | | | | | [place] [address] | | | | | | [phone] | | | | | | | [...] [place] | | | | | | [address] | | | | | | [phone] | | | | | | | [...] | | | | | [place] [address] | | | | | | [phone] | | | | | | | | | | | | Azul Yeboah, | | | | | | MD [address] | | | | | | [address], [place] | | | | | | [place] [address] | | | | | | [phone] | | | | | | | | +--------+ + + + + | 04/08/ | Appointment | Nutrition | Janel Webster | | | 2019 | | | G, KHOA | | +--------+ + + + + | 05/21/ | Office | Neurology | Dhara, | | | 2019 | Visit | | [address] | | | [address] [place], | | | | | | [place] [address] | | | | | | [phone] | | | | | | | [...] C?MRN: | | | | | | [id number] | | | [id number] | | | riteri | | | [...]
--- OUTSIDE RECORDS SUMMARY | ~2020-02-18 | XMS | Encounter Summary ---
Demographics + + + | Address | [address] | | | [place] [address] | + + + | Home Phone [...] Providers + +------+ + | Care Rn Observation Name | Role | Phone | + [...] + | 10/25/ | Telephone | [place] [facility] | Erika Ernst, | Medication Refill | | 2019 | | [facility] | DO [address] | Assistance | | | | [facility]ICAL [facility] [address] | [place] [address] | | | | | [address] [place], | [phone] | | | | | [place] [address] | | | | | | [phone] | | | +--------+ + + + [...] | | | | | [place] [address] | | | | | | [phone] | | | | | | | | | | | | Julia Fisher, | | | | | | PT | | +--------+ + + + + | 02/18/ | Appointment | Rehabilitation | Erika Ernst, | | | 2019 | | | DO [address] | | | | | | [place] [address] | | | | | | [phone] | | | | | | | | | | | | [facility] | | +--------+ + + + + | 02/25/ | Office | Primary Care | Erika Ernst, | | | 2019 | Visit | | DO [address] | | | | | | [place] [address] | | | | | | [phone] | | | | | | | [...] | | | | | [place] [address] | | | | | | [phone] | | | | | | | | +--------+ + + + + | 02/27/ | Appointment | Radiology | Dhara, | | | 2019 | | | [address] | | | | | | [address]TH [facility], | | | | | | [place] [address] | | | | | | [phone] | | | | | | | | +--------+ + + + + | 03/04/ | Appointment | Rehabilitation | [facility] OT | | | 2019 | | | | | +--------+ + + + + | 03/09/ | Office | Orthopedic Surgery | Jeffrey Gandhi, | | 2019 | Visit | | [address] | | | | | | [place] [address] | | | | | | [phone] | | | | | | | [...] [place] | | | | | | [address] | | | | | | [phone] | | | | | | | [...] | | | | | [place] [address] | | | | | | [phone] | | | | | | | | | | | | Azul Yeboah, | | | | | | MD [address] | | | | | | [place] | | | | | | [place] [address] | | | | | | [phone] | | | | | | | [...] | | | | | | [place] [address] | | | | | | [phone] | | | | | | | | +--------+ + + + + documented as of this encounter Visit Diagnoses Not on filedocumented in this encounter"
--- OUTSIDE RECORDS SUMMARY | ~2020-02-18 | XMS | Encounter Summary ---
Demographics + + + | Address | [address] | | | [place] [address] | + + + | Home Phone [...] Team Providers + +------+ + | Care Controls Design Engineer Name | Role | Phone [...] | CENTER [address] [place], [place] | | | | | [place], [place] | [address] | | | | | [address] | | | | | | [phone] | | | +--------+ + + + [...] | | | | | [place] [address] | | | | | | [phone] | | | | | | | | | | | | Julia Fisher, | | | | | | PT | | +--------+ + + + + | 02/18/ | Appointment | Rehabilitation | Erika Ernst, | | | 2019 | | | DO [address] | | | | | | [place] [address] | | | | | | [phone] | | | | | | | | | | | | [facility] | | +--------+ + + + + | 02/25/ | Office | Primary Care | Erika Ernst, | | | 2019 | Visit | | DO [address] | | | | | | [place] [address] | | | | | | [phone] | | | | | | | [...] | | | | | [place] [address] | | | | | | [phone] | | | | | | | | +--------+ + + + + | 02/27/ | Appointment | Radiology | Dhara, | | | 2019 | | | [address] | | | | | | 4TH [facility], | | | | | | [place] [address] | | | | | | [phone] | | | | | | | | +--------+ + + + + | 03/04/ | Appointment | Rehabilitation | [facility] OT | | | 2019 | | | | | +--------+ + + + + | 03/09/ | Office | Orthopedic Surgery | Jeffrey Gandhi, | | | 2019 | Visit | | [address] [facility] | | | | | | [place] [address] | | | | | | [phone] | | | | | | | [...] [place] | | | | | | [address] | | | | | | [phone] | | | | | | | [...] | | | | | [place] [address] | | | | | | [phone] | | | | | | | | | | | | Azul Yeboah, | | | | | | MD [address] | | | | | | [place] | | | | | | [place] [address] | | | | | | [phone] | | | | | | | [...] | | | | | | [place] [address] | | | | | | [phone] | | | | | | | | +--------+ + + + + documented as of this encounter Visit Diagnoses Not on filedocumented in this encounter"
--- OUTSIDE RECORDS SUMMARY | ~2020-02-18 | XMS | Encounter Summary ---
Demographics + + + | Address | [address] | | | [place] [address] | + + + | Home Phone [...] Providers + +------+ + | Care Vice Investigator Name | Role | Phone | [...] | | | | [place], | [address] | | | | | | [place] | Phone: | | | | | | [address] | [phone] | | | | | | Phone: | Fax: | | | | | | [phone] | [phone] | | | | | | Fax: | | | | | | | [phone] | | + + + + + [...] [place] | | | | | [place] [address] | [address] | | | | | [phone] | [phone] | | | | | | | [...] 2019 | | | DO [address] [place] | | | | | | [place] [address] | | | | | | [phone] | | | | | | | | | | | | Julia Fisher, | | | | | | PT | | +--------+ + + + + | 02/18/ | Appointment | Rehabilitation | Erika Ernst, | | | 2019 | | | DO [address] [place] | | | | | | [place] [address] | | | | | | [phone] | | | | | | | | | | | | [facility] | | +--------+ + + + + | 02/25/ | Office | Primary Care | Erika Ernst, | | | 2019 | Visit | | DO [address] [place] | | | | | | [place] [address] | | | | | | [phone] | | | | | | | [...] | | | | | [place] [address] | | | | | | [phone] | | | | | | | | +--------+ + + + + | 02/27/ | Appointment | Radiology | Dhara, | | | 2019 | | | [address] | | | | | | [address]TH [facility], | | | | | | [place] [address] | | | | | | [phone] | | | | | | | [...] [place] | | | | | | [place] [address] | | | | | | [phone] | | | | | | | [...] [place] | | | | | | [address] | | | | | | [phone] | | | | | | | [...] | | | | | [place] [address] | | | | | | [phone] | | | | | | | | | | | | Azul Yeboah, | | | | | | MD [address] | | | | | | [place] | | | | | | [place] [address] | | | | | | [phone] | | | | | | | [...] | | | | | | [place] [address] | | | | | | [phone] | | | | | | | [...]
--- OUTSIDE RECORDS SUMMARY | ~2020-02-18 | XMS | Encounter Summary ---
Demographics + + + | Address | [address] | | | [place] [address] | + + + | Home Phone [...] Providers + +------+ + | Care Career Professional Name | Role | Phone | [...] | [address] | | | | | [address] | | | | | | [phone] | | | +--------+ + + + [...] | | | | | [place] [address] | | | | | | [phone] | | | | | | | | | | | | Julia Fisher, | | | | | | PT | | +--------+ + + + + | 02/18/ | Appointment | Rehabilitation | Erika Ernst, | | | 2019 | | | DO [address] [place] | | | | | | [place] [address] | | | | | | [phone] | | | | | | | | | | | | [facility] | | +--------+ + + + + | 02/25/ | Office | Primary Care | Erika Ernst, | | | 2019 | Visit | | DO [address] [place] | | | | | | [place] [address] | | | | | | [phone] | | | | | | | [...] | | | | | [place] [address] | | | | | | [phone] | | | | | | | | +--------+ + + + + | 02/27/ | Appointment | Radiology | Dhara, | | | 2019 | | | [address] | | | | | | [facility] [facility] | | | | | | [place] [address] | | | | | | [phone] | | | | | | | | +--------+ + + + + | 03/04/ | Appointment | Rehabilitation | [facility]yon OT | | 2019 | | | | | +--------+ + + + + | 03/09/ | Office | Orthopedic Surgery | Jeffrey Gandhi, | | | 2019 | Visit | | [address] | | | | | | [place] [address] | | | | | | [phone] | | | | | | | [...] [place] | | | | | | [address] | | | | | | [phone] | | | | | | | [...] | | | | | [place] [address] | | | | | | [phone] | | | | | | | | | | | | Azul Yeboah, | | | | | | MD [address] | | | | | | [place] | | | | | | [place] [address] | | | | | | [phone] | | | | | | | [...] | | | | | | [place] [address] | | | | | | [phone] | | | | | | | | +--------+ + + + + documented as of this encounter Visit Diagnoses Not on filedocumented in this encounter"
--- OUTSIDE RECORDS SUMMARY | ~2020-02-18 | XMS | Encounter Summary ---
Demographics + + + | Address | [address] | | | [place] [address] | + + + | Home Phone [...] Providers + +------+ + | Care School Plant Consultant Name | Role | Phone | [...] | [facility] | [place] [address] | (Primary Dx); Left | | | | [address] [place], | [phone] | acute otitis media; | | | | [place] [address] | | Increased risk of | | | | [phone] | | breast cancer; | | | [...] (BMI) of 50.0 to 59.9 in adult ([facility]) Plan: Continue current BP med's and monitor. [...] NE | | | | | | [place] [address] | | | | | | [phone] | | | | | | | | | | | | Julia Fisher, | | | | | | PT | | +--------+ + + + + | 02/18/ | Appointment | Rehabilitation | Erika Ernst, | | | 2019 | | | DO [address] [place] | | | | | | [place] [address] | | | | | | [phone] | | | | | | | | | | | | [facility] | | +--------+ + + + + | 02/25/ | Office | Primary Care | Erika Ernst, | | | 2019 | Visit | | DO [address] [place] | | | | | | [place] [address] | | | | | | [phone] | | | | | | | [...] | | | | | [place] [address] | | | | | | [phone] | | | | | | | | +--------+ + + + + | 02/27/ | Appointment | Radiology | Dhara, | | | 2019 | | | [address] | | | | | | [address] [place], | | | | | | [place] [address] | | | | | | [phone] | | | | | | | [...] | | | | | [place] [address] | | | | | | [phone] | | | | | | | [...] [place] | | | | | | [address] | | | | | | [phone] | | | | | | | [...] | | | | | [place] [address] | | | | | | [phone] | | | | | | | | | | | | Azul Yeboah, | | | | | | MD [address] | | | | | | [place] | | | | | | [place] [address] | | | | | | [phone] | | | | | | | [...] | | | | | | [place] [address] | | | | | | [phone] | | | | | | | [...]
--- OUTSIDE RECORDS SUMMARY | ~2020-02-18 | XMS | Encounter Summary ---
Demographics + + + | Address | [address] | | | [place] [address] | + + + | Home Phone [...] Providers + +------+ + | Care Food And Drug Research Scientist Name | Role | Phone | [...] | | | | | sinusitis, | [address] | | | | | | unspecified | Phone: | | | | | | chronicity | [phone] | | | | | | Procedures | Fax: | | | | | | CT Sinus WO | [phone] | | | | | | Contrast [...] | | | | | sinusitis, | [address] | | | | | | unspecified | Phone: | | | | | | chronicity | [phone] | | | | | | Procedures | Fax: | | | | | | CT Sinus WO | [phone] | | | | | | Contrast [...] | | [place], [place] | [place] [address] | sinusitis, | | | | [address] | [phone] | unspecified | | | | [phone] | | chronicity | +--------+ + + [...] | 11/26/19 | | | (VITAMIN D3) 55107 | mouth Once a week | tablet | | 19 | 9 | | units TABS | for 16 doses. | | | | | + + + +---------+ + + | D3-50 27684 units | | | 0 | 12/13/19 [...] | | | | | [place] [address] | | | | | | [phone] | | | | | | | | | | | | Julia Fisher, | | | | | | PT | | +--------+ + + + + | 02/18/ | Appointment | Rehabilitation | Erika Ernst, | | | 2019 | | | DO [address] [place] | | | | | | [place] [address] | | | | | | [phone] | | | | | | | | | | | | [facility] | | +--------+ + + + + | 02/25/ | Office | Primary Care | Erika Ernst, | | | 2019 | Visit | | [address] [place] [address] | | | | | | [place] [address] | | | | | | [phone] | | | | | | | [...] | | | | | [place] [address] | | | | | | [phone] | | | | | | | | +--------+ + + + + | 02/27/ | Appointment | Radiology | Dhara, | | | 2019 | | | DWAINE Ross [address] [place], | | | | | | [place] [address] | | | | | | [phone] | | | | | | | | +--------+ + + + + | 03/04/ | Appointment | Rehabilitation | [facility] | | | 2019 | | | | | +--------+ + + + + | 03/09/ | Office | Orthopedic Surgery | Jeffrey Gandhi, | | | 2019 | Visit | | [address] | | | | | | [place] [address] | | | | | | [phone] | | | | | | | [...] [place] | | | | | | [address] | | | | | | [phone] | | | | | | | [...] | | | | | [place] [address] | | | | | | [phone] | | | | | | | | | | | | Azul Yeboah, | | | | | | [address] | | | | | | [place] | | | | | | [place] [address] | | | | | | [phone] | | | | | | | [...] | | | | | | [place] [address] | | | | | | [phone] | | | | | | | [...]
--- OUTSIDE RECORDS SUMMARY | ~2020-02-18 | XMS | Encounter Summary ---
Demographics + + + | Address | [address] | | | [place] [address] | + + + | Home Phone [...] + +------+ + | Care Salt Washer [employer] Name | Role | Phone | + [...] TMJ | | 2020 | Visit | [facility] | DO [address] | (temporomandibular | | | | [facility] | [place] [address] | joint disorder) | | | | [address] [place], | [phone] | (Primary Dx); | | | | [place] [address] | | Essential | | | | [phone] | | hypertension; | | | | [...] + + documented in this encounter Erika Kmuar DO - 11/05/2019 7:20 AM PSTFormatting of [...] past. No symptoms. Obesity non-smoker. Aunt with [place]. Review of Systems As above Objective: BP [...] | | | | | [place] [address] | | | | | | [phone] | | | | | | | | | | | | Julia Fisher, | | | | | | PT | | +--------+ + + + + | 02/18/ | Appointment | Rehabilitation | Erika Ernst, | | | 2019 | | | DO [address] | | | | | | [place] [address] | | | | | | [phone] | | | | | | | | | | | | Genesis Ayon, OT | | +--------+ + + + + | 02/25/ | Office | Primary Care | Erika Ernst, | | | 2019 | Visit | | DO [address] | | | | | | [place] [address] | | | | | | [phone] | | | | | | | [...] | | | | | [place] [address] | | | | | | [phone] | | | | | | | | +--------+ + + + + | 02/27/ | Appointment | Radiology | Dhara, | | | 2019 | | | [address] | | | | | | [address] [place], | | | | | | [place] [address] | | | | | | [phone] | | | | | | | | +--------+ + + + + | 03/04/ | Appointment | Rehabilitation | Genesis Ayon OT | | | 2019 | | | | | +--------+ + + + + | 03/09/ | Office | Orthopedic Surgery | Jeffrey Gandhi, | | | 2019 | Visit | | [place] [address] [facility] | | | | | | [place] [address] | | | | | | [phone] | | | | | | | [...] [place] | | | | | | [address] | | | | | | [phone] | | | | | | | [...] | | | | | [place] [address] | | | | | | [phone] | | | | | | | | | | | | Azul Yeboah, | | | | | | MD [address] | | | | | | [place] | | | | | | [place] [address] | | | | | | [phone] | | | | | | | [...] | | | | | | [place] [address] | | | | | | [phone] | | | | | | | [...]
--- OUTSIDE RECORDS SUMMARY | ~2020-02-18 | XMS | Encounter Summary ---
Demographics + + + | Address | [address] | | | [place] [address] | + + + | Home Phone [...] Team Providers + +------+ + | Care Loom Overhauler Name | Role | Phone | + [...] | | | | | | | FL REPR | | | | | | | FOREARM | | | | | | | TEND/MUSC,EX | | | | | | | TEN,PRIM,EA | | | | | | | FL REPR | | | | | | | FOREARM | | | | | | | TEND/MUSC,EX | | | | | | | TEN,SECOND | | | | | | | FL REPR | | | | | | [...] | | [place] | [place] [address] | | | | | [address] | [phone] | | | | | [phone] | | | +--------+---------+ + + + [...] number, which will transfer you to [facility] the [facility] and ask for the recreation director orthopedic provider. Be sure to mention t hat you've had surgery recently. AttachmentsThe following attachments cannot be sent through Care Everywhere.After Your Surg matt: Discharge Instructions (Estonian)documented in this encounter Medications at Time of [...] | 02/29/20 | | | (VITAMIN D3) 20419 | mouth Once a week | tablet [...] | | 2020 | | | DO [address] | | | | | | [place] [address] | | | | | | [phone] | | | | | | | | | | | | Julia Fisher, | | | | | | PT | | +--------+ + + + + | 02/18/ | Appointment | Rehabilitation | Erika Ernst, | | | 2019 | | | DO [address] | | | | | | [place] [address] | | | | | | [phone] | | | | | | | | | | | | Genesis Ayon OT | | +--------+ + + + + | 02/25/ | Office | Primary Care | Erika Ernst, | | | 2019 | Visit | | DO [address] | | | | | | [place] [address] | | | | | | [phone] | | | | | | | [...] | | | | | [place] [address] | | | | | | [phone] | | | | | | | | +--------+ + + + + | 02/27/ | Appointment | Radiology | Dhara, | | | 2019 | | | [address] | | | | | | [address] [place], | | | | | | [place] [address] | | | | | | [phone] | | | | | | | [...] | | | | [place] [address] | | | | | | [phone] | | | | | | | [...] [place] | | | | | | [address] | | | | | | [phone] | | | | | | | [...] | | | | | [place] [address] | | | | | | [phone] | | | | | | | | | | | | Azul Yeboah, | | | | | | MD [address] | | | | | | [place] | | | | | | [place] [address] | | | | | | [phone] | | | | | | | [...] | | | | | | [place] [address] | | | | | | [phone] | | | | | | | [...] + + | [facility] [facility] | [address] | [place] | [phone] | | [facility] | | [address] | | + + + + + [...]
--- OUTSIDE RECORDS SUMMARY | ~2020-02-18 | XMS | Encounter Summary ---
Demographics + + + | Address | [address] | | | [place] [address] | + + + | Home Phone [...] Providers + +------+ + | Care Utility Driver Name | Role | Phone | [...] [facility] | | | | | [facility] [address] | [facility] [place] [address] | | | | | [address] [place], | [phone] | | | | | [place] [address] | | | | | | [phone] | | | +--------+ + + + [...] | | | | | [place] [address] | | | | | | [phone] | | | | | | | | | | | | Julia Fisher, | | | | | | PT | | +--------+ + + + + | 02/18/ | Appointment | Rehabilitation | Erika Ernst, | | | 2019 | | | DO [address] | | | | | | [place] [address] | | | | | | [phone] | | | | | | | | | | | | Genesis Ayon OT | | +--------+ + + + + | 02/25/ | Office | Primary Care | Erika Ernst, | | | 2019 | Visit | | DO [address] | | | | | | [place] [address] | | | | | | [phone] | | | | | | | [...] | | | | | [place] [address] | | | | | | [phone] | | | | | | | | +--------+ + + + + | 02/27/ | Appointment | Radiology | Dhara, | | | 2019 | | | [address] | | | | | | [address] [place], | | | | | | [place] [address] | | | | | | [phone] | | | | | | | [...] [place] | | | | | | [place] [address] | | | | | | [phone] | | | | | | | [...] [place] | | | | | | [address] | | | | | | [phone] | | | | | | | [...] | | | | | [place] [address] | | | | | | [phone] | | | | | | | | | | | | Azul Yeboah, | | | | | | MD [address] | | | | | | [place] | | | | | | [place] [address] | | | | | | [phone] | | | | | | | [...] | | | | | | [place] [address] | | | | | | [phone] | | | | | | | | +--------+ + + + + documented as of this encounter Visit Diagnoses Not on filedocumented in this encounter"
--- OUTSIDE RECORDS SUMMARY | ~2020-02-18 | XMS | Encounter Summary ---
Demographics + + + | Address | [address] | | | [place] [address] | + + + | Home Phone [...] | | | [address] | [facility] [place] | | | | | [place], [place] | [address] | | | | | [address] | [phone] | | | | | [phone] | | | +--------+ + + + [...] | | | | | [place] [address] | | | | | | [phone] | | | | | | | | | | | | Julia Fisher, | | | | | | PT | | +--------+ + + + + | 02/18/ | Appointment | Rehabilitation | Erika Ernst, | | | 2019 | | | DO [address] | | | | | | [place] [address] | | | | | | [phone] | | | | | | | | | | | | Genesis Ayon, OT | | +--------+ + + + + | 02/25/ | Office | Primary Care | Erika Ernst, | | | 2019 | Visit | | DO [address] | | | | | | [place] [address] | | | | | | [phone] | | | | | | | [...] | | | | | [place] [address] | | | | | | [phone] | | | | | | | | +--------+ + + + + | 02/27/ | Appointment | Radiology | Dhara, | | | 2019 | | | [address] | | | | | | 4TH [facility], | | | | | | [place] [address] | | | | | | [phone] | | | | | | | | +--------+ + + + + | 03/04/ | Appointment | Rehabilitation | Genesis Ayon OT | | | 2019 | | | | | +--------+ + + + + | 03/09/ | Office | Orthopedic Surgery | Jeffrey Gandhi, | | 2019 | Visit | | [address] | | | | | | [place] [address] | | | | | | [phone] | | | | | | | [...] [place] | | | | | | [address] | | | | | | [phone] | | | | | | | [...] | | | | | [place] [address] | | | | | | [phone] | | | | | | | | | | | | Azul Yeboah, | | | | | | MD [address] | | | | | | [place] | | | | | | [place] [address] | | | | | | [phone] | | | | | | | [...] | | | | | | [place] [address] | | | | | | [phone] | | | | | | | | +--------+ + + + + documented as of this encounter Visit Diagnoses Not on filedocumented in this encounter"
--- OUTSIDE RECORDS SUMMARY | ~2020-02-18 | XMS | Encounter Summary ---
Demographics + + + | Address | [address] | | | [place] [address] | + + + | Home Phone [...] Providers + +------+ + | Care Office Systems Technology Instructor Name | Role | Phone | [...] [address] | [facility] [place] [address] | | | | | [address] [facility], | [phone] | | | | | [place] [address] | | | | | | [phone] | | | +--------+ + + + [...] | | | | | [place] [address] | | | | | | [phone] | | | | | | | | | | | | Julia Fisher, | | | | | | PT | | +--------+ + + + + | 02/18/ | Appointment | Rehabilitation | Erika Ernst, | | | 2019 | | | DO [address] | | | | | | [place] [address] | | | | | | [phone] | | | | | | | | | | | | Genesis Ayon OT | | +--------+ + + + + | 02/25/ | Office | Primary Care | Erika Ernst, | | | 2019 | Visit | | DO [address] | | | | | | [place] [address] | | | | | | [phone] | | | | | | | [...] | | | | | [place] [address] | | | | | | [phone] | | | | | | | | +--------+ + + + + | 02/27/ | Appointment | Radiology | Dhara, | | | 2019 | | | [address] | | | | | | 4TH [facility], | | | | | | [place] [address] | | | | | | [phone] | | | | | | | | +--------+ + + + + | 03/04/ | Appointment | Rehabilitation | Genesis Ayon OT | | | 2019 | | | | | +--------+ + + + + | 03/09/ | Office | Orthopedic Surgery | Jeffrey Gandhi, | | 2019 | Visit | | [address] | | | | | | [place] [address] | | | | | | [phone] | | | | | | | [...] [place] | | | | | | [address] | | | | | | [phone] | | | | | | | [...] | | | | | [place] [address] | | | | | | [phone] | | | | | | | | | | | | Azul Yeboah, | | | | | | MD [address] | | | | | | [place] | | | | | | [place] [address] | | | | | | [phone] | | | | | | | [...] | | | | | | [place] [address] | | | | | | [phone] | | | | | | | | +--------+ + + + + documented as of this encounter Visit Diagnoses Not on filedocumented in this encounter"
--- OUTSIDE RECORDS SUMMARY | ~2020-02-18 | XMS | Encounter Summary ---
Demographics + + + | Address | [address] | | | [place] [address] | + + + | Home Phone [...] Providers + +------+ + | Care Geographic Information Systems Director Name | Role | Phone | [...] [place] | | | | | | [address] | | | | | | [phone] | | | +--------+ + + + [...] | | | | | [place] [address] | | | | | | [phone] | | | | | | | | | | | | Julia Fisher, | | | | | | PT | | +--------+ + + + + | 02/18/ | Appointment | Rehabilitation | Erika Ernst, | | | 2019 | | | DO [address] | | | | | | [place] [address] | | | | | | [phone] | | | | | | | | | | | | Genesis Ayon OT | | +--------+ + + + + | 02/25/ | Office | Primary Care | Erika Ernst, | | | 2019 | Visit | | DO [address] | | | | | | [place] [address] | | | | | | [phone] | | | | | | | [...] | | | | | [place] [address] | | | | | | [phone] | | | | | | | | +--------+ + + + + | 02/27/ | Appointment | Radiology | Dhara, | | | 2019 | | | [address] | | | | | | 4TH [facility], | | | | | | [place] [address] | | | | | | [phone] | | | | | | | | +--------+ + + + + | 03/04/ | Appointment | Rehabilitation | Genesis Ayon OT | | | 2019 | | | | | +--------+ + + + + | 03/09/ | Office | Orthopedic Surgery | Jeffrey Gandhi, | | | 2019 | Visit | | [address] | | | | | | [place] [address] | | | | | | [phone] | | | | | | | [...] [place] | | | | | | [address] | | | | | | [phone] | | | | | | | [...] | | | | | [place] [address] | | | | | | [phone] | | | | | | | | | | | | Azul Yeboah, | | | | | | MD [address] | | | | | | [place] [place] | | | | | | [place] [address] | | | | | | [phone] | | | | | | | [...] | | | | | | [place] [address] | | | | | | [phone] | | | | | | | | +--------+ + + + + documented as of this encounter Visit Diagnoses Not on filedocumented in this encounter"
--- OUTSIDE RECORDS SUMMARY | ~2020-02-18 | XMS | Encounter Summary ---
Demographics + + + | Address | [address] | | | [place] [address] | + + + | Home Phone [...] Team Providers + +------+ + | Care Fruit Or Nut Grower Name | Role | Phone | [...] [facility] [place] [address] | | | | | [address] [facility], | [phone] | | | | | [place] [address] | | | | | | [phone] | | | +--------+ + + + [...] [address] | | | | | | [phone] | | | | | | | | | | | | Julia Fisher, | | | | | | PT | | +--------+ + + + + | 02/18/ | Appointment | Rehabilitation | Erika Ernst, | | | 2019 | | | DO [address] | | | | | | [place] [address] | | | | | | [phone] | | | | | | | | | | | | Genesis Ayon OT | | +--------+ + + + + | 02/25/ | Office | Primary Care | Erika Ernst, | | | 2019 | Visit | | DO [address] | | | | | | [place] [address] | | | | | | [phone] | | | | | | | [...] | | | | | [place] [address] | | | | | | [phone] | | | | | | | | +--------+ + + + + | 02/27/ | Appointment | Radiology | Dhara, | | | 2019 | | | [address] | | | | | | [address] [place], | | | | | | [place] [address] | | | | | | [phone] | | | | | | | [...] [place] | | | | | | [place] [address] | | | | | | [phone] | | | | | | | [...] [place] | | | | | | [address] | | | | | | [phone] | | | | | | | [...] | | | | | [place] [address] | | | | | | [phone] | | | | | | | | | | | | Azul Yeboah, | | | | | | MD [address] | | | | | | [address] | | | | | | [place] [address] | | | | | | [phone] | | | | | | | [...] | | | | | | [place] [address] | | | | | | [phone] | | | | | | | | +--------+ + + + + documented as of this encounter Visit Diagnoses Not on filedocumented in this encounter"
--- OUTSIDE RECORDS SUMMARY | ~2020-02-18 | XMS | Encounter Summary ---
Demographics + + + | Address | [address] | | | [place] [address] | + + + | Home Phone [...] Team Providers + +------+ + | Care Lance Crewmember Name | Role | Phone | + [...] | [facility] [address] | [place] [address] | | | | | [address] [place], | [phone] | | | | | [place] [address] | | | | | | [phone] | | | +--------+ + + + [...] | | | | | [place] [address] | | | | | | [phone] | | | | | | | | | | | | Julia Fisher, | | | | | | PT | | +--------+ + + + + | 02/18/ | Appointment | Rehabilitation | Erika Ernst, | | | 2019 | | | DO [address] | | | | | | [place] [address] | | | | | | [phone] | | | | | | | | | | | | Genesis Ayon OT | | +--------+ + + + + | 02/25/ | Office | Primary Care | Erika Ernst, | | | 2019 | Visit | | DO [address] | | | | | | [place] [address] | | | | | | [phone] | | | | | | | [...] | | | | | [place] [address] | | | | | | [phone] | | | | | | | | +--------+ + + + + | 02/27/ | Appointment | Radiology | Dhara, | | | 2019 | | | [address] | | | | | | 4TH [facility], | | | | | | [place] [address] | | | | | | [phone] | | | | | | | | +--------+ + + + + | 03/04/ | Appointment | Rehabilitation | Genesis Ayon OT | | | 2019 | | | | | +--------+ + + + + | 03/09/ | Office | Orthopedic Surgery | Jeffrey Gandhi, | | | 2019 | Visit | | [address] | | | | | | [place] [address] | | | | | | [phone] | | | | | | | [...] [place] | | | | | | [address] | | | | | | [phone] | | | | | | | [...] | | | | | [place] [address] | | | | | | [phone] | | | | | | | | | | | | Azul Yeboah, | | | | | | [address] | | | | | | [place] | | | | | | [place] [address] | | | | | | [phone] | | | | | | | [...] | | | | | | [place] [address] | | | | | | [phone] | | | | | | | | +--------+ + + + + documented as of this encounter Visit Diagnoses Not on filedocumented in this encounter"
--- OUTSIDE RECORDS SUMMARY | ~2020-02-18 | XMS | Encounter Summary ---
Demographics + + + | Address | [address] | | | [place] [address] | + + + | Home Phone [...] Providers + +------+ + | Care Electrical Foreman Name | Role | Phone | [...] [place] | | | | | | [address] | | | | | | [phone] | | | +--------+ + + + [...] | | | | | [place] [address] | | | | | | [phone] | | | | | | | | | | | | Julia Fisher, | | | | | | PT | | +--------+ + + + + | 02/18/ | Appointment | Rehabilitation | Erika Ernst, | | | 2019 | | | DO [address] | | | | | | [place] [address] | | | | | | [phone] | | | | | | | | | | | | Genesis Ayon OT | | +--------+ + + + + | 02/25/ | Office | Primary Care | Erika Ernst, | | | 2019 | Visit | | DO [address] [place] [address] | | | | | | [place] [address] | | | | | | [phone] | | | | | | | [...] | | | | | [place] [address] | | | | | | [phone] | | | | | | | | +--------+ + + + + | 02/27/ | Appointment | Radiology | Dhara, | | 2019 | | | [address] | | | | | | [address] [place], | | | | | | [place] [address] | | | | | | [phone] | | | | | | | | +--------+ + + + + | 03/04/ | Appointment | Rehabilitation | Genesis Ayon OT | | | 2019 | | | | | +--------+ + + + + | 03/09/ | Office | Orthopedic Surgery | Jeffrey Gandhi, | | | 2019 | Visit | | MD [address] [facility] | | | | | | [place] [address] | | | | | | [phone] | | | | | | | [...] [place] | | | | | | [address] | | | | | | [phone] | | | | | | | [...] | | | | | [place] [address] | | | | | | [phone] | | | | | | | | | | | | Azul Yeboah, | | | | | | [address] | | | | | | [place] | | | | | | [place] [address] | | | | | | [phone] | | | | | | | [...] | | | | | | [place] [address] | | | | | | [phone] | | | | | | | | +--------+ + + + + documented as of this encounter Visit Diagnoses Not on filedocumented in this encounter"
--- OUTSIDE RECORDS SUMMARY | ~2020-02-18 | XMS | Encounter Summary ---
Demographics + + + | Address | [address] | | | [place] [address] | + + + | Home Phone [...] Team Providers + +------+ + | Care Gps Field Data Collector Name | Role | Phone | + +------+ + | Erika Ernst DO | PCP | | + +------+ + Reason for Visit +--------+ + | Reason | Comments | +--------+ + | Other | FU from ED in [place] | +--------+ + Encounter Details +--------+ + + + + | Date | Type | Department | Care Team | Description | +--------+ + + + + | 08/16/ | Telephone | [facility] [facility] | Inoc[facility]io Noriega | Other (FU from ED in | | 2018 | | [facility] | MD [address] | [place]) | | | | [address] | [address] | | | | | [place] | [place] [address] | | | | | [address] | [phone] | | | | | [phone] | | | +--------+ + + + [...] | | | | | [place] [address] | | | | | | [phone] | | | | | | | | | | | | Julia Fisher, | | | | | | PT | | +--------+ + + + + | 02/18/ | Appointment | Rehabilitation | Erika Ernst, | | | 2019 | | | DO [address] | | | | | | [place] [address] | | | | | | [phone] | | | | | | | | | | | | Genesis Ayon, OT | | +--------+ + + + + | 02/25/ | Office | Primary Care | Erika Ernst, | | | 2019 | Visit | | DO [address] | | | | | | [place] [address] | | | | | | [phone] | | | | | | | [...] | | | | | [place] [address] | | | | | | [phone] | | | | | | | | +--------+ + + + + | 02/27/ | Appointment | Radiology | Dhara, | | | 2019 | | | [address] | | | | | | 4TH [facility], | | | | | | [place] [address] | | | | | | [phone] | | | | | | | | +--------+ + + + + | 03/04/ | Appointment | Rehabilitation | Genesis Ayon OT | | | 2019 | | | | | +--------+ + + + + | 03/09/ | Office | Orthopedic Surgery | Jeffrey Gandhi, | | | 2019 | Visit | | [address] [facility] | | | | | | [place] [address] | | | | | | [phone] | | | | | | | [...] [place] | | | | | | [address] | | | | | | [phone] | | | | | | | [...] [address] | | | | | | [phone] | | | | | | | | | | | | Azul Yeboah, | | | | | | MD [address] | | | | | | [place] | | | | | | [place] [address] | | | | | | [phone] | | | | | | | [...] | | | | | | [place] [address] | | | | | | [phone] | | | | | | | | +--------+ + + + + documented as of this encounter Visit Diagnoses Not on filedocumented in this encounter"
--- OUTSIDE RECORDS SUMMARY | ~2020-02-18 | XMS | Encounter Summary ---
Demographics + + + | Address | [address] | | | [place] [address] | + + + | Home Phone [...] Providers + +------+ + | Care Awning Frame Maker Name | Role | Phone [...] | [address] | [place] [address] | | | | | [place], [place] | [phone] | | | | | [address] | | | | | | [phone] | | | +--------+ + + + [...] | | 2019 | | | DO [address] [place] [address] | | | | | | [place] [address] | | | | | | [phone] | | | | | | | | | | | | Julia Fisher, | | | | | | PT | | +--------+ + + + + | 02/18/ | Appointment | Rehabilitation | Erika Ernst, | | | 2019 | | | DO [address] [place] | | | | | | [place] [address] | | | | | | [phone] | | | | | | | | | | | | [facility] | | +--------+ + + + + | 02/25/ | Office | Primary Care | Erika Ernst, | | | 2019 | Visit | | DO [address] [place] | | | | | | [place] [address] | | | | | | [phone] | | | | | | | [...] | | | | | | [place] [address] | | | | | | [phone] | | | | | | | | +--------+ + + + + | 02/27/ | Appointment | Radiology | Dhara, | | | 2019 | | | DWAINE Ross [address] [place], | | | | | | [place] [address] | | | | | | [phone] | | | | | | | [...] | | | | | | [place] [address] | | | | | | [phone] | | | | | | | [...] [place] | | | | | | [address] | | | | | | [phone] | | | | | | | [...] | | | | | [place] [address] | | | | | | [phone] | | | | | | | | | | | | Azul Yeboah, | | | | | | MD [address] | | | | | | [place] | | | | | | [place] [address] | | | | | | [phone] | | | | | | | | +--------+ + + + + | 04/08/ | Appointment | Nutrition | Janel Webster | | | 2019 | | | [place], KHOA | | +--------+ + + + + | 05/21/ | Office | Neurology | Dhara, | | | 2019 | Visit | | Cody, TRAVEL AGENT [address] [place], | | | | | | [place] [address] | | | | | | [phone] | | | | | | | [...] of the medial foot. Age appropriate bone line up examiner al density. | | | |IMPRESSION: [...]
--- OUTSIDE RECORDS SUMMARY | ~2020-02-18 | XMS | Encounter Summary ---
Demographics + + + | Address | [address] | | | [place] [address] | + + + | Home Phone [...] Team Providers + +------+ + | Care Metallurgical Or Materials Technician Name | Role | Phone | + +------+ + PCP | Unavailable | + +------+ + Encounter Details +--------+ + + + + | Date | Type | Department | Care Team | Description | +--------+ + + + + | 03/23/ | [facility] [place] [facility] | Denise Mcgregor | | | 2017 | Encounter | [facility] | G, ANNUAL GIVING MANAGER | | | | | MEDICAL CL[facility] [address] | | | | | | [facility] [facility] [place], | | | | | | [place] [address] | | | | | | [phone] | | | +--------+ + + + [...] | | | | | [place] [address] | | | | | | [phone] | | | | | | | | | | | | Julia Fisher, | | | | | | PT | | +--------+ + + + + | 02/18/ | Appointment | Rehabilitation | Erika Ernst, | | | 2019 | | | DO [address] | | | | | | [place] [address] | | | | | | [phone] | | | | | | | | | | | | [facility] | | +--------+ + + + + | 02/25/ | Office | Primary Care | Erika Ernst, | | | 2019 | Visit | | DO [address] | | | | | | [place] [address] | | | | | | [phone] | | | | | | | [...] | | | | | [place] [address] | | | | | | [phone] | | | | | | | | +--------+ + + + + | 02/27/ | Appointment | Radiology | Dhara, | | | 2019 | | | DWAINE Ross [address] | | | [address] [place], | | | | | | [place] [address] | | | | | | [phone] | | | | | | | [...] | | | | | [place] [address] | | | | | | [phone] | | | | | | | [...] [place] | | | | | | [address] | | | | | | [phone] | | | | | | | [...] | | | | | [place] [address] | | | | | | [phone] | | | | | | | | | | | | Azul Yeboah, | | | | | | MD [address] | | | | | | [place] | | | | | | [place] [address] | | | | | | [phone] | | | | | | | [...] | | | | | | [place] [address] | | | | | | [phone] | | | | | | | | +--------+ + + + + documented as of this encounter Visit Diagnoses Not on filedocumented in this encounter"
--- OUTSIDE RECORDS SUMMARY | ~2020-02-18 | XMS | Encounter Summary ---
Demographics + + + | Address | [address] | | | [place] [address] | + + + | Home Phone [...] Providers + +------+ + | Care Group Contract Analyst Name | Role | Phone | [...] | 2020 | | [facility] | [facility] | call back re: fever | | | | MEDICAL [facility] [address] | [facility] [place] [address] | and other symptoms); | | | | [facility], | [phone] | Other (FYI) | | | | [place] [address] | | | | | | [phone] | | | +--------+ + + + [...] | | | | | [place] [address] | | | | | | [phone] | | | | | | | | | | | | Julia Fisher, | | | | | | PT | | +--------+ + + + + | 02/18/ | Appointment | Rehabilitation | Erika Ernst, | | | 2019 | | | DO [address] | | | | | | [place] [address] | | | | | | [phone] | | | | | | | | | | | | [facility] | | +--------+ + + + + | 02/25/ | Office | Primary Care | Erika Ernst, | | | 2019 | Visit | | DO [address] | | | | | | [place] [address] | | | | | | [phone] | | | | | | | [...] | | | | | [place] [address] | | | | | | [phone] | | | | | | | | +--------+ + + + + | 02/27/ | Appointment | Radiology | Dhara, | | | 2019 | | | DWAINE Ross [address] [place], | | | | | | [place] [address] | | | | | | [phone] | | | | | | | | +--------+ + + + + | 03/04/ | Appointment | Rehabilitation | [facility] OT | | 2019 | | | | | +--------+ + + + + | 03/09/ | Office | Orthopedic Surgery | Jeffrey Gandhi, | | 2019 | Visit | | [place] [address] | | | | | | [place] [address] | | | | | | [phone] | | | | | | | [...] [place] | | | | | | [address] | | | | | | [phone] | | | | | | | [...] | | | | | [place] [address] | | | | | | [phone] | | | | | | | | | | | | Azul Yeboah, | | | | | | MD [address] | | | | | | [place] | | | | | | [place] [address] | | | | | | [phone] | | | | | | | [...] | | | | | | [place] [address] | | | | | | [phone] | | | | | | | | +--------+ + + + + documented as of this encounter Visit Diagnoses Not on filedocumented in this encounter"
--- OUTSIDE RECORDS SUMMARY | ~2020-02-18 | XMS | Encounter Summary ---
Demographics + + + | Address | [address] | | | [place] [address] | + + + | Home Phone [...] Team Providers + +------+ + | Care Developer Advisor Name | Role | Phone | + +------+ + PCP | Unavailable | + +------+ + Encounter Details +--------+ + + + + | Date | Type | Department | Care Team | Description | +--------+ + + + + | 10/12/ | [facility] | [facility] | Erika Ernst, | | | 2017 | Encounter | [facility] | DO [address] | | | | | MEDICAL CL[facility] [address] | [facility] [place] [address] | | | | | [address] [place], | [phone] | | | | | [place] [address] | | | | | | [phone] | | | +--------+ + + + [...] | | | | | [place] [address] | | | | | | [phone] | | | | | | | | | | | | Julia Fisher, | | | | | | PT | | +--------+ + + + + | 02/18/ | Appointment | Rehabilitation | Erika Ernst, | | | 2019 | | | DO [address] | | | | | | [place] [address] | | | | | | [phone] | | | | | | | | | | | | [facility] | | +--------+ + + + + | 02/25/ | Office | Primary Care | Erika Ernst, | | | 2019 | Visit | | DO [address] | | | | | | [place] [address] | | | | | | [phone] | | | | | | | [...] | | | | | [place] [address] | | | | | | [phone] | | | | | | | | +--------+ + + + + | 02/27/ | Appointment | Radiology | Dhara, | | | 2019 | | | DWAINE Ross [address] | | | | | | [address]TH [facility], | | | | | | [place] [address] | | | | | | [phone] | | | | | | | | +--------+ + + + + | 03/04/ | Appointment | Rehabilitation | [facility] | | | 2019 | | | | | +--------+ + + + + | 03/09/ | Office | Orthopedic Surgery | Jeffrey Gandhi, | | 2019 | Visit | | [address] | | | | | | [place] [address] | | | | | | [phone] | | | | | | | [...] [place] | | | | | | [address] | | | | | | [phone] | | | | | | | [...] | | | | | [place] [address] | | | | | | [phone] | | | | | | | | | | | | Azul Yeboah, | | | | | | MD [address] | | | | | | [place] | | | | | | [place] [address] | | | | | | [phone] | | | | | | | [...] | | | | | | [place] [address] | | | | | | [phone] | | | | | | | | +--------+ + + + + documented as of this encounter Visit Diagnoses Not on filedocumented in this encounter"
--- OUTSIDE RECORDS SUMMARY | ~2020-02-18 | XMS | Encounter Summary ---
Demographics + + + | Address | [address] | | | [place] [address] | + + + | Home Phone [...] Team Providers + +------+ + | Care Family Assistant Name | Role | Phone | [...] [address] | [facility] [place] [address] | | | | | [address] [facility], | [phone] | | | | | [place] [address] | | | | | | [phone] | | | +--------+ + + + [...] | | | | | [place] [address] | | | | | | [phone] | | | | | | | | | | | | Julia Fisher, | | | | | | PT | | +--------+ + + + + | 02/18/ | Appointment | Rehabilitation | Erika Ernst, | | | 2019 | | | DO [address] | | | | | | [place] [address] | | | | | | [phone] | | | | | | | | | | | | [facility] | | +--------+ + + + + | 02/25/ | Office | Primary Care | Erika Ernst, | | | 2019 | Visit | | DO [address] | | | | | | [place] [address] | | | | | | [phone] | | | | | | | [...] | | | | | [place] [address] | | | | | | [phone] | | | | | | | | +--------+ + + + + | 02/27/ | Appointment | Radiology | Dhara, | | | 2019 | | | DWAINE Ross [address] | | | | | | [address] [facility], | | | | | | [place] [address] | | | | | | [phone] | | | | | | | | +--------+ + + + + | 03/04/ | Appointment | Rehabilitation | [facility] OT | | | 2019 | | | | | +--------+ + + + + | 03/09/ | Office | Orthopedic Surgery | Jeffrey Gandhi, | | 2019 | Visit | | [address] | | | | | | [place] [address] | | | | | | [phone] | | | | | | | [...] [place] | | | | | | [address] | | | | | | [phone] | | | | | | | [...] | | | | | [place] [address] | | | | | | [phone] | | | | | | | | | | | | Azul Yeboah, | | | | | | MD [address] | | | | | | [place] | | | | | | [place] [address] | | | | | | [phone] | | | | | | | [...] | | | | | | [place] [address] | | | | | | [phone] | | | | | | | | +--------+ + + + + documented as of this encounter Visit Diagnoses Not on filedocumented in this encounter"
--- OUTSIDE RECORDS SUMMARY | ~2020-02-18 | XMS | Encounter Summary ---
Demographics + + + | Address | [address] | | | [place] [address] | + + + | Home Phone [...] Team Providers + +------+ + | Care Librarian Assistant Name | Role | Phone | + +------+ + PCP | Unavailable | + +------+ + Encounter Details +--------+ + + + + | Date | Type | Department | Care Team | Description | +--------+ + + + + | 11/29/ | [facility] | [facility] | Conversion | | | 2012 | Encounter | [facility] | Transaction, | | | | | MEDICAL CL[facility] [address] | Provider Unknown | | | | | [address] [facility], | | | | | | [place] [address] | | | | | | [phone] | | | +--------+ + + + [...] | | | | | [place] [address] | | | | | | [phone] | | | | | | | | | | | | Julia Fisher, | | | | | | PT | | +--------+ + + + + | 02/18/ | Appointment | Rehabilitation | Erika Ernst, | | | 2019 | | | DO [address] | | | | | | [place] [address] | | | | | | [phone] | | | | | | | | | | | | [facility] | | +--------+ + + + + | 02/25/ | Office | Primary Care | Erika Ernst, | | | 2019 | Visit | | DO [address] | | | | | | [place] [address] | | | | | | [phone] | | | | | | | [...] | | | | | [place] [address] | | | | | | [phone] | | | | | | | | +--------+ + + + + | 02/27/ | Appointment | Radiology | Dhara, | | | 2019 | | | DWAINE Ross [address] | | | | | | [address] [facility], | | | | | | [place] [address] | | | | | | [phone] | | | | | | | [...] [place] | | | | | | [place] [address] | | | | | | [phone] | | | | | | | [...] [place] | | | | | | [address] | | | | | | [phone] | | | | | | | [...] | | | | | [place] [address] | | | | | | [phone] | | | | | | | | | | | | Azul Yeboah, | | | | | | MD [address] | | | | | | [place] | | | | | | [place] [address] | | | | | | [phone] | | | | | | | [...] | | | | | | [place] [address] | | | | | | [phone] | | | | | | | | +--------+ + + + + documented as of this encounter Visit Diagnoses Not on filedocumented in this encounter"
--- OUTSIDE RECORDS SUMMARY | ~2020-02-18 | XMS | Encounter Summary ---
Demographics + + + | Address | [address] | | | [place] [address] | + + + | Home Phone [...] Team Providers + +------+ + | Care Wholesale Representative Name | Role | Phone | [...] | | | [address] | [facility] [place], [place] | | | | | [place], [place] | [address] | | | | | [address] | [phone] | | | | | [phone] | | | +--------+ + + + [...] | | | | | [place] [address] | | | | | | [phone] | | | | | | | | | | | | Julia Fisher, | | | | | | PT | | +--------+ + + + + | 02/18/ | Appointment | Rehabilitation | Erika Ernst, | | | 2019 | | | DO [address] | | | | | | [place] [address] | | | | | | [phone] | | | | | | | | | | | | Genesis Ayon, OT | | +--------+ + + + + | 02/25/ | Office | Primary Care | Erika Ernst, | | | 2019 | Visit | | DO [address] | | | | | | [place] [address] | | | | | | [phone] | | | | | | | [...] | | | | | [place] [address] | | | | | | [phone] | | | | | | | | +--------+ + + + + | 02/27/ | Appointment | Radiology | Dhara, | | | 2019 | | | DWAINE Ross [address] | | | | | | [address]TH [facility], | | | | | | [place] [address] | | | | | | [phone] | | | | | | | | +--------+ + + + + | 03/04/ | Appointment | Rehabilitation | [facility] OT | | | 2019 | | | | | +--------+ + + + + | 03/09/ | Office | Orthopedic Surgery | Jeffrey Gandhi, | | 2019 | Visit | | [address] | | | | | | [place] [address] | | | | | | [phone] | | | | | | | [...] [place] | | | | | | [address] | | | | | | [phone] | | | | | | | [...] | | | | | [place] [address] | | | | | | [phone] | | | | | | | | | | | | Azul Yeboah, | | | | | | MD [address] | | | | | | [place] | | | | | | [place] [address] | | | | | | [phone] | | | | | | | [...] | | | | | | [place] [address] | | | | | | [phone] | | | | | | | | +--------+ + + + + documented as of this encounter Visit Diagnoses Not on filedocumented in this encounter"
--- OUTSIDE RECORDS SUMMARY | ~2020-02-18 | XMS | Encounter Summary ---
Demographics + + + | Address | [address] | | | [place] [address] | + + + | Home Phone [...] Providers + +------+ + | Care Research Pharmacist Name | Role | Phone | + +------+ + | Erika Ernst DO | PCP | | + +------+ + Reason for Referral Diagnostic/Screening (Routine) + +--------+ + + + + | Status | Reason | Specialty | Diagnoses / | Referred By | Referred To | | | | | Procedures | Contact | Contact | + +--------+ + + + + | Authorized | | Radiology | Diagnoses | Dhara, | [facility] | | | | | Intractable | Karyanne, | [address] | | | | | migraine | [facility] [address] | | | | | without aura | [address] | [place], [place] | | | | | and without | [place], [place] | [address] | | | | | status | [id number] | Phone: | | | | | migrainosus | Phone: | [phone] | | | | | | [phone] | Fax: | | | | | Post-traumat | Fax: | [phone] | | | | | ic brain | [phone] | | | | | | syndrome | | | | | | | Procedures | | | | | | | MRI Brain w | | | | | | | wo Contrast | | | + +--------+ + + + + Reason for Visit + + + | Reason | Comments | + + + | Headache | | + + + | Head Injury | on 12/26/19 | + + + Encounter Details +--------+---------+ + + + | Date | Type | Department | Care Team | Description | +--------+---------+ + + + | 02/09/ | Office | [place] [facility] | Dhara, | Post-traumatic brain | | 2020 | Visit | [facility] | Cody, [facility] [address] | syndrome (Primary | | | | CLINIC [address] [place], | Dx); Intractable | | | | [place], | [place] [address] | migraine without | | | | [place] [address] | [phone] | aura and without | | | | [phone] | | status migrainosus | +--------+---------+ + + + Social History [...] in this encounter Patient Instructions Patient Instructions Cody Jules FNP - 02/10/2020 8:45 AM PDTFormatting of this no te might be different from the original. Migraine Headache This often severe type of headache is different from other types of headaches in that sympt oms other than pain occur with the headache. Nausea and vomiting, lightheadedness, sensitivi ty to light (photophobia), and other visual disturbances are common migraine symptoms.The pain may last from a few hours to several days. It is not clear why migraines occur but cert ain factors called triggers can raise the risk of having a migraine attack.A migrain e may be triggered by emotional stressor depression, or by hormone changes during the mens trual cycle. Other triggers include control pills, overuse of migraine medicines, alco hol or caffeine, foods with tyramine (such as aged cheese and wine), eyestrain, weather penn ges, missed meals,or too little or too much sleep. Home care Follow these tips when taking care of yourself at home: Don t drive yourself home if you were given pain medicine for your headache or are hav ing visual symptoms. Instead, have someone else drive you home. Try to sleep when you get ho me. You should feel much better when you wake up. Cold can help ease migraine symptoms. Put an ice pack on your forehead or at the base of your skull. Put heat on the back of your neck to help ease any neck spasm. Drink only clear liquids or eat a light diet until your symptoms get better. This will h elp you avoid nausea and vomiting. How to prevent migraines Pay attention to what seems to trigger your headache. Try to avoid the triggers when you ca n. If you have frequent headaches, consider keeping a headache diary. In it, write down what you were doing, feeling, or eating in the hours before each headache. Show this to your [facility] provider to help find the cause of your headaches. If stress seems to be a trigger for your headaches, figure out what is causing stress in yo ur life. Learn new ways to handle your stress. Ideas include regular exercise, biofeedback, self-hypnosis, yoga, and meditation. Talk with your healthcare provider to find out more inf ormation about managing stress. Many books and digital media are also available on this subj ect. Tyramine is a substance found in many foods. It can trigger a migraine in some people. Thes e foods contain tyramine: Chocolate Yogurt All cheeses, but especially aged cheeses Smoked or pickled fish and meat, including dumont, caviar, bologna, pepperoni, and ty mi Liver Avocados Bananas Figs Raisins Red wine Try staying away from these foods for 1 to 2 months to see if you have fewer headaches. How to treat future headaches Take time out at the first sign of a headache, if possible. Find a quiet, dark, comforta ble place to sit or lie down. Let yourself relax or sleep. Put an ice pack on your forehead or on the area of greatest pain. A heating pad and mass age may help if you are having a muscle spasm and tightness in your neck. If you have been prescribed a medicine to stop a migraine headache, use this at the firs t warning sign of the headache for best results. First signs may be an aura or pain. If you need to take medicine often for your migraine, talk with your healthcare provider about other ways to prevent your headaches. Follow-up care Follow up with your healthcare provider, or as advised. Talk with your provider if you have frequent headaches. He or she can figure out a treatment plan. Ask if you can have medicine to take at home the next time you get a bad headache. This may keep you from having to visi t the emergency department in the future. You may need to see a headache specialist (neurolo gist) if you continue to have headaches. When to seek medical advice Call your healthcare provider right awayif any of these occur: Your head pain gets worse, or doesn t get better within 24 hours You can t keep liquids down (repeated vomiting) Pain in your sinuses, ears, or throat Fever of 100.4 F (38 C) or higher, or as directed by your healthcare provider Stiff neck Extreme drowsiness, confusion, or fainting Dizziness, or dizziness with spinning sensation (vertigo) Weakness in an arm or leg, or on one side of your face Difficulty talking or seeing Date Last Reviewed: 05/02/201619991730-4323 [employer]. [address] [place] [address], [place] [address]. All [facility] ts reserved. This information is not intended as a substitute for professional medical care. Always follow your healthcare professional's instructions. After a Concussion Awaken to check alertness as often as the health care provider suggests. If you had a mild concussion (a head injury), watch closely for signs of problems during th e first 48 hours after the injury. Follow the doctor s advice about recovering at home. Us e the tips on this handout as a guide. Note: You should not be left alone after a concussion. If no adult can stay with the injure d person, let the doctor know. Have someone call 911 or your emergency number if you can't fully wake up or have a seizure s or convulsions. The first 48 hours Don t take medicine unless approved by your healthcare provider. Try placing a cold, damp cloth on your head to help relieve a headache. Ask the doctor before using any medicines. Don't drink alcohol or take sedatives or medicines that make you sleepy. Don't return to sports or any activity that could cause you to hit your head until all s ymptoms are gone and you have been cleared by your doctor. A second head injury before fully recovering from the first one can lead to serious brain injury. Don't do activities that need a lot of concentration or a lot of attention. This will al low your brain to rest and heal more quickly. Return to regular physical and mental activity as directed and approved by your healthca re provider. Tips about sleeping For the first day or two, it may be best not to sleep for long periods of time without bein g checked for alertness. Follow the doctor s instructions. ? Have someone wake you every ____ hours for the next ____ hours. He or she should ask you questions to check for alertness. ?OK to sleep through the night. When to call the healthcare provider If you notice any of the following, call the healthcare provider: Vomiting. Some vomiting is common, but tell the provider about any vomiting. Clear or bloody drainage from the nose or ear Constant drowsiness or difficulty in waking up Confusion or memory loss Blurred vision or any vision changes Inability to walk or talk normally Increased weakness or problems with coordination Constant, unrelieved headache that becomes more severe Changes in behavior or personality High-pitched crying in infants Signs of stroke such as paralysis of parts of the body Uncrontrolled movements suggesting a seizure Date Last Reviewed: 09/01/201719999062-8802 [employer]. [address] [place] [address], [place] [address]. All righ ts reserved. This information is not intended as a substitute for professional medical care. Always follow your healthcare professional's instructions. documented in this encounter Progress Notes Cody Jules FNP - 02/10/2020 8:45 AM PDT Patient: Andrea Suh Medical Record: [id number] Date of Services: 02/10/2020 Referring Doctor: Erika Ernst DO Chief Complaint: TBI, posttraumatic brain syndrome, migraine headaches History of Present Illness: The patient presents to the Neurology Clinic today for follow u p. The patient has a history of multiple concussions and posttraumatic brain syndrome. The starr james reports that she did have another concussion on December 25 when she was opening a cabine t and it fell and hit her on the head. She was evaluated in the emergency room and was diag nosed with a concussion. This is the patient's third concussion/head injury. The patient r eports that her persistent symptoms include some worsening headaches and difficulty with use a computer for long periods of time. She also will experience occasional mild cognitive dy sfunction. Patient did see a neuropsychologist in the past prior to this concussion which s howed no clear evidence of significant cognitive or memory dysfunction from her head injury. The patient reports that she has been working from home which requires her to use her comp uter for up to 8 hours/day. She reports that initially after her accident she was only able to work on the computer for 30-45 minutes without getting a migraine. She reports that thi s has improved and she is now able to work on her computer for about 3 hours at a time. Aft er about 3 hours she will get a migraine headache and will need to take a break. The mckenna sánchez reports that her primary care provider has prescribed tramadol for her to take as needed w hen she gets a severe migraine. Has a history of migraine headaches, without aura, not status migrainous, intractable. No imaging is available for review at this time. She also has a history of Mnire's disease which is currently being treated by Dr. Wheeler. She reports that her migraine headaches worsen when her Mnire's disease is flared up. However, routinely she is experiencing ap proximately 2 3 migraine headaches per month. The patient has had at least 2 eye exams wi thin the past year and her glasses prescription is correct. The patient reports that her sy mptoms do typically respond well to tramadol. She does have associated photophobia, phonoph obia and nausea. No vomiting. She reports that her headache pain will begin in the right f rontal region and generalized. She describes the pain as throbbing/pressure-like in nature. Her migraine headaches will last 1-2 hours and resolve when she takes her tramadol. The p athilario was previously prescribed a triptan. However, due to her family history of multiple CVAs she was hesitant to take this medication. The patient reports that her mother had her first CVA when she was 41 years old and at 59 years old due to a CVA or aneurysm ruptur e. She reports that an autopsy was not completed so the cause of is not clear. [facility], the patient's mother did have a history of cerebral aneurysms as well. She reports that her mother did have a PFO which was repaired. However, she did continue to have strokes ev en after the repair. The patient did have some genetic testing completed which showed that she does not have factor V Leiden, factor II prothrombin deficiency deficiency or hyperhomoc ystinemia. However, additional hypercoagulability work-up was not completed. Of note, the patient did test positive for low warfarin sensitivity indicating that a higher dose of warf charla may be required for anticoagulation, if needed. Additional results of genetic testing can be found under the media tab labeled genetic testing results January 01, 2020. Encounter Problem List Post-traumatic brain syndrome (Primary) - MRI Brain w wo Contrast; Future; Expected date: 02/10/2020 Intractable migraine without aura and without status migrainosus - MRI Brain w wo Contrast; Future; Expected date: 02/10/2020 - ubrogepant (UBRELVY) 50 mg tablet; Take 1 tablet by mouth as needed for Migraine. May repeat initial dose after 2 hours. Do not exceed 200 mg in 24 hours. Dispense: 10 tablet; Refill: 1 Past Surgical History: Procedure Laterality Date excision of mass from back of neck 11/2019 EYE SURGERY HAND TENDON SURGERY Right 03/20/2019 Procedure: REPAIR E.C.U. Tendon; Surgeon: Inocencio Noriega MD; [facility]: [facility] SURGERY RIGHT KIDNER PROCEDURE 01/20/2016 Surgeon: Fani Mahajan MD; Location: [facility] TENDON RELEASE THYROID FINE NEEDLE ASPIRATION 09/02/2019 Procedure: US GUIDED THYROID FNA - Location: [facility] ULTRASOUND TONSILLECTOMY WISDOM TOOTH EXTRACTION Allergies Allergen Reactions Latex Rash Lexapro [Escitalopram] Palpitations Ciprofloxacin Nausea Only Deblitane [Norethindrone] Hydrocodone Hives Milk Unknown Nickel Dermatitis, Itching and Swelling Uncoded Nonscreenable Allergen Other (See Comments) Other reaction(s): Proclivity to C-diff with certain antibiotics Adhesive & Tape Rash albuterol azelastine BUDESONIDE IN busPIRone cetirizine cholecalciferol clindamycin-benzoyl peroxide COMBIVENT RESPIMAT diphenhydrAMINE DULERA FEROSUL fexofenadine-pseudoePHEDrine Fluocinonide fluticasone guaiFENesin (MUCINEX PO) levothyroxine MAGNESIUM CHLORIDE PO meclizine melatonin ondansetron prazosin predniSONE QVAR REDIHALER SPIRIVA RESPIMAT tiZANidine traMADol ubrogepant UNABLE TO FIND Valerian Root Zinc Review of Symptoms: CONSTITUTIONAL: No weight loss, fever, chills, weakness or fatigue. HEENT: Eyes: No visual loss, blurred vision, double vision or yellow sclerae. Ears, Nose, Throat: No hearing loss, sneezing, congestion, runny nose or sore throat. SKIN: No rash or itching. CARDIOVASCULAR: No chest pain, chest pressure or chest discomfort. No palpitations or edema . RESPIRATORY: No shortness of breath, cough or sputum. GASTROINTESTINAL: No anorexia, nausea, vomiting or diarrhea. No abdominal pain or blood. GENITOURINARY: No burning on urination. NEUROLOGICAL: No dizziness, syncope, paralysis, ataxia, numbness or tingling in the extremi ties. No change in bowel or bladder control. + Headaches, migraine headaches, triggered by e xcessive screen time use. MUSCULOSKELETAL: No muscle, back pain, joint pain or stiffness. PSYCHIATRIC: No depression or anxiety. Neurological Examination: Vitals: 02/10/20 0838 BP: 110/88 Pulse: 94 Resp: 16 Temp: 37.3 C (99.1 F) PainSc: 6 PainLoc: Back General Appearance: The patient is alert and in no acute distress. Mental status: The patient is alert, attentive, and oriented. Speech is clear and fluent with good repetit ion, comprehension, and naming. Cranial nerves: CN II: Visual palmer are full to confrontation. Fundoscopic exam is normal with sharp discs and no vascular changes. Pupils are 4 mm and briskly reactive to light with accomodation. CN III, IV, : Gaze in conjugate. No blurred or double vision. No visual field cuts. EOM intact. CN V: Facial sensation is intact. CN VII: Face is symmetric with normal eye closure and smile. CN VII: Hearing is normal to rubbing fingers CN IX, X: Palate elevates symmetrically. Phonation is normal. CN XI: Head turning and shoulder shrug are intact CN XII: Tongue is midline with normal movements and no atrophy. Motor: There is no pronator drift of out-stretched arms. Muscle bulk and tone are normal. Strength is 5/5 bilaterally. Reflexes: Reflexes are 2+ and symmetric at the biceps, triceps, knees, and ankles. Sensory: Light touch, pinprick, position sense, and vibration sense are intact in fingers and toes. Coordination: Rapid alternating movements and fine finger movements are intact. There is no dysmetria on vrzqfl-xq-ilyo and plkw-cnzy-mlpv. There are no abnormal or extraneous movements. Romberg is absent. Gait/Stance: Posture is normal. Gait is steady with normal steps, base, arm swing, and turning. Heel and toe walking with mild difficulty. Clinical Impression: ICD-10-CM ICD-9-CM 1. Post-traumatic brain syndrome F07.81 310.2 MRI Brain w wo Contrast 2. Intractable migraine without aura and without status migrainosus G43.019 346.11 MRI Brai n w wo Contrast ubrogepant (UBRELVY) 50 mg tablet Plan: Posttraumatic brain syndrome: We discussed that the patient should do everything within her power to avoid additional head injuries. The patient's ability to recover back to baseline will be impaired with every subsequent concussion she concurs. The patient should continue to work to improve her symptoms. However, when she does become symptomatic while working o n her computer she should take a break. The patient should have an MRI of the brain with an d without contrast due to her history of recurrent head injuries and continued symptoms. Migraine headaches: The patient does have a history of migraine headaches which have worsen ed due to her head injuries and diagnosis of Mnire's disease. The patient should have a n MRI of the brain with and without contrast to further investigate the cause of her symptom s. The patient's mother of multiple CVAs at a very young age. She also has a family h istory of cancer. The patient should also begin treatment with Ubrelvy 50 mg tablets as an abortive agent for her migraine headaches. We discussed that the maximum dose of this medic ation is 200 mg in 24 hours. She should take 1 tablet at the onset of migraine headaches an d may repeat x1 dose up to maximum 24-hour dose of 200 mg every 2 hours as needed. Ensure p paulette headache hygiene. This includes: ? Avoiding skipping meals or foods that may trigger a headache for you. ? Ensure adequate sleep (6-8 hours per night). Avoid changes in sleeping pattern such as o alex sleeping, napping, or sleep deprivation. ? Manage stressors at home, work and with your family/friends that can contribute to headac he development. ? Avoid environmental triggers such as pollution, bright light, or extreme temperature penn ges. ? Ensure adequate hydration. ? Exercise regularly. For example, aerobic exercise for at least 30 minutes three times a w [place] will help reduce frequency or severity of migraine. ? Avoid alcohol and caffeine. Plan to follow-up in approximately 3 months with me. DWAINE Ramirez Electronically signed This note was transcribed using voice recognition software. There may be speech recognitio n errors which escaped detection during review. documented in thi s encounter Plan of Treatment +--------+ + + + + | Date | Type | Specialty | Care Team | Description | +--------+ + + + + | 02/18/ | Appointment | Rehabilitation | Erika Ernst, | | | 2019 | | | DO [address] [place] | | | | | | [place] [address] | | | | | | [phone] | | | | | | | [...] [address] | | | | | | [phone] | | | | | | | | | | | | Genesis Ayon, OT | | +--------+ + + + + | 02/25/ | Office | Primary Care | Erika Ernst, | | | 2019 | Visit | | DO [address] [place] | | | | | | [place] [address] | | | | | | [phone] | | | | | | | [...] | | | | | [place] [address] | | | | | | [phone] | | | | | | | | +--------+ + + + + | 02/27/ | Appointment | Radiology | Dhara, | | | 2019 | | | DWAINE [address] | | | | | | [address] [facility], | | | | | | [place] [address] | | | | | | [phone] | | | | | | | | +--------+ + + + + | 03/04/ | Appointment | Rehabilitation | Genesis Ayon OT | | 2019 | | | | | +--------+ + + + + | 03/09/ | Office | Orthopedic Surgery | Jeffrey Gandhi, | | | 2019 | Visit | | MD [address] [facility] | | | | | | [place] [address] | | | | | | [phone] | | | | | | | [...] [place] | | | | | | [address] | | | | | | [phone] | | | | | | | [...] | | | | | [place] [address] | | | | | | [phone] | | | | | | | | | | | | Azul Yeboah, | | | | | | MD [address] | | | | | | [place] | | | | | | [place] [address] | | | | | | [phone] | | | | | | | [...] | | | | | | [place] [address] | | | | | | [phone] | | | | | | | | +--------+ + + + + + +---------+--------+ + + | Name | Type | Priori | Associated Diagnoses | Order Schedule | | | | ty | | | + +---------+--------+ + + | MRI Brain w wo | Imaging | Routin | Intractable | Expected: | | Contrast | | e | migraine without | 02/10/2020, Expires: | | | | | aura and without | 02/09/2021 | | | | | status migrainosus | | | | | | Post-traumatic brain | | | | | | syndrome | | + +---------+--------+ + + documented as of this encounter Visit Diagnoses + + | Diagnosis | + + | Post-traumatic brain syndrome - Primary Postconcussion syndrome | + + | Intractable migraine without aura and without status migrainosus Migraine without | | aura, with intractable migraine, so stated, without mention of status migrainosus | + + documented in this encounter
--- OUTSIDE RECORDS SUMMARY | ~2020-02-18 | XMS | Encounter Summary ---
Demographics + + + | Address | [address] | | | [place] [address] | + + + | Home Phone [...] Team Providers + +------+ + | Care Panel Coverer Name | Role | Phone | + [...] (de | [place], [place] | [place] [address] | | | | | quervain) | [address] | Phone: | | | | | Pain in | Phone: | [phone] | | | | | right wrist | [phone] | Fax: | | | | | Procedures | Fax: | [phone] | | | | | OT TREAT | [phone] | | +--------+--------+ + + + + [...] [address] | [place] [address] | (Primary Dx); Right | | | | [place], [place] | [phone] | wrist pain | | | | [address] | | | | | | [phone] | Michela Azevedo, | | | | [...] | 11/26/19 | | | (VITAMIN D3) 22449 | mouth Once a week | tablet [...] might be different f rom the original. [facility] OT [address] [place] [address] Occupational Therapy Daily Treatment Note Date: 12/06/2018 [...] loading and prop rioception at tabletop, 5' imaging services director strengthening 1-2x/day light resistance, and second surgic [...] reduced "scrubbing" motion, submaximal isometric extension, reduced imaging services director strengthening to 5' x 1-2 a day with light putty, hold on wall pushu ps and heavy imaging services director strengthening until symptoms normalize (pt education), pt [...] period and is compliant with wrist and imaging services director strengthening exercises. She does still hav e deficits in imaging services director strength and wrist stability as well as pain with daily activities. Her j ob description may be changing which would decrease the physical demands of her work, making it more appropriate for her current status. She continues to benefit from Folder Gluer Operator apy to maximize her imaging services director strength and wrist stability following this injury and return her t o prior level of function. 10/30/2018 - REASON FOR RE-CERTIFICATION: Andrea has received 12 Occupational Therapy treatme nts since 08/07/2018 following her right wrist surgery. She has regained full AROM of the rig ht wrist but continues to have right wrist, imaging services director and pinch weakness and significant pain (3- [...] in 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, and imaging services director and pinch weakness in the right hand [...] | 2019 | | | DO [facility] [address] | | | | | | [place] [address] | | | | | | [phone] | | | | | | | | | | | | Julia Fisher, | | | | | | PT | | +--------+ + + + + | 02/18/ | Appointment | Rehabilitation | Erika Ernst, | | | 2019 | | | DO [address] | | | | | | [place] [address] | | | | | | [phone] | | | | | | | | | | | | [facility] OT | | +--------+ + + + + | 02/25/ | Office | Primary Care | Erika Ernst, | | | 2019 | Visit | | DO [address] | | | | | | [place] [address] | | | | | | [phone] | | | | | | | [...] | | | | | [place] [address] | | | | | | [phone] | | | | | | | | +--------+ + + + + | 02/27/ | Appointment | Radiology | Dhara, | | | 2019 | | | [address] | | | | | | [address] [place], | | | | | | [place] [address] | | | | | | [phone] | | | | | | | [...] | | | | | [place] [address] | | | | | | [phone] | | | | | | | [...] [place] | | | | | | [address] | | | | | | [phone] | | | | | | | [...] | | | | | [place] [address] | | | | | | [phone] | | | | | | | | | | | | Azul Yeboah, | | | | | | MD [address] | | | | | | [place] [address] [place] | | | | | | [place] [address] | | | | | | [phone] | | | | | | | [...] | | | | | | [place] [address] | | | | | | [phone] | | | | | | | | +--------+ + + + + documented as of this encounter Visit Diagnoses + + | Diagnosis | + + | Radial styloid tenosynovitis - Primary | + + | Right wrist pain Pain in joint, forearm | + + documented in this encounter
--- OUTSIDE RECORDS SUMMARY | ~2020-02-18 | XMS | Encounter Summary ---
Demographics + + + | Address | [address] | | | [place] [address] | + + + | Home Phone [...] + +------+ + | Care Director Of Oncology Name | Role | Phone | + [...] | | | | encounter | [place] [address] | [place], [place] | | | | | | Phone: | [phone] Phone: | | | | | | [phone] | [phone] | | | | | | Fax: | Fax: | | | | | | [phone] | [phone] | + + + + + + [...] | [facility] [address] | [place] [address] | encounter (Primary | | | | [address] [place], | [phone] | Dx) | | | | [place] [address] | | | | | | [phone] | | | +--------+ + + + [...] | | 2019 | | | DO [address] [place] [address] | | | | | | [place] [address] | | | | | | [phone] | | | | | | | | | | | | Julia Fisher, | | | | | | PT | | +--------+ + + + + | 02/18/ | Appointment | Rehabilitation | Erika Ernst, | | | 2019 | | | DO [address] | | | | | | [place] [address] | | | | | | [phone] | | | | | | | | | | | | [facility] OT | | +--------+ + + + + | 02/25/ | Office | Primary Care | Erika Ernst, | | | 2019 | Visit | | DO [address] | | | | | | [place] [address] | | | | | | [phone] | | | | | | | [...] | | | | | [place] [address] | | | | | | [phone] | | | | | | | | +--------+ + + + + | 02/27/ | Appointment | Radiology | Dhara, | | | 2019 | | | [address] | | | | | [address] [place], | | | | | | [place] [address] | | | | | | [phone] | | | | | | | [...] | | | | | [place] [address] | | | | | | [phone] | | | | | | | [...] [place] | | | | | | [address] | | | | | | [phone] | | | | | | | [...] | | | | | [place] [address] | | | | | | [phone] | | | | | | | | | | | | Azul Yeboah, | | | | | | MD [address] | | | | | | [place] | | | | | | [place] [address] | | | | | | [phone] | | | | | | | [...] | | | | | | [place] [address] | | | | | | [phone] | | | | | | | [...]
--- OUTSIDE RECORDS SUMMARY | ~2020-02-18 | XMS | Encounter Summary ---
Demographics + + + | Address | [address] | | | [place] [address] | + + + | Home Phone [...] Team Providers + +------+ + | Care Bread Panner Name | Role | Phone | + [...] | | | | s (de | [place], [place] | [place] [address] | | | | | quervain) | [address] | Phone: | | | | | Pain in | Phone: | [phone] | | | | | right wrist | [phone] | Fax: | | | | | Procedures | Fax: | [phone] | | | | | OT TREAT | [phone] | | +--------+--------+ + + + + [...] | | [address] | [place] [address] | (Primary Dx); Right | | | | [place], [place] | [phone] | wrist pain | | | | [address] | | | | | | [phone] | Nakia Koo OT | | +--------+ [...] PST [place] [facility] OT [address] [place] [address] Occupational Therapy Daily Treatment Note Date: 10/23/2018 [...] complains of pain/discomfort Today's Treatment Patient Name: nAdrea Suh/: 1990/ Start Time: 1000 Stop time: [...] have some deficits in AROM, pinch and manganese wheeler strength. She has returned to modified work [...] pt has made progress with her R manganese wheeler strength, but is still experiencing activity limiting [...] in 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, and manganese wheeler and pinch weakness in the right hand [...] | | | | | [place] [address] | | | | | | [phone] | | | | | | | | | | | | Julia Fisher, | | | | | | PT | | +--------+ + + + + | 02/18/ | Appointment | Rehabilitation | Erika Ernst, | | | 2019 | | | DO [address] | | | | | | [place] [address] | | | | | | [phone] | | | | | | | | | | | | [facility] OT | | +--------+ + + + + | 02/25/ | Office | Primary Care | Erika Ernst, | | | 2019 | Visit | | DO [address] | | | | | | [place] [address] | | | | | | [phone] | | | | | | | [...] | | | | | [place] [address] | | | | | | [phone] | | | | | | | | +--------+ + + + + | 02/27/ | Appointment | Radiology | Dhara, | | | 2019 | | | [address] | | | | | | [address] [facility], | | | | | | [place] [address] | | | | | | [phone] | | | | | | | [...] [place]ORE | | | | | | [place] [address] | | | | | | [phone] | | | | | | | [...] [place] | | | | | | [address] | | | | | | [phone] | | | | | | | [...] | | | | | [place] [address] | | | | | | [phone] | | | | | | | | | | | | Azul Yeboah, | | | | | | MD [address] | | | | | | [place] | | | | | | [place] [address] | | | | | | [phone] | | | | | | | [...] | | | | | | [place] [address] | | | | | | [phone] | | | | | | | | +--------+ + + + + documented as of this encounter Visit Diagnoses + + | Diagnosis | + + | Radial styloid tenosynovitis - Primary | + + | Right wrist pain Pain in joint, forearm | + + documented in this encounter
--- OUTSIDE RECORDS SUMMARY | ~2020-02-18 | XMS | Encounter Summary ---
Demographics + + + | Address | [address] | | | [place] [address] | + + + | Home Phone [...] Team Providers + +------+ + | Care Railway Yard Assistant Name | Role | Phone | [...] | [facility] | [address] | | | | | [facility] [address] | [facility] [place] [address] | | | | | [address] [place], | [phone] | | | | | [place] [address] | | | | | | [phone] | | | +--------+ + + + [...] | | | | | [place] [address] | | | | | | [phone] | | | | | | | [...] [address] | | | | | | [phone] | | | | | | | | | | | | [facility] OT | | +--------+ + + + + | 02/25/ | Office | Primary Care | Erika Ernst, | | | 2019 | Visit | | DO [address] | | | | | | [place] [address] | | | | | | [phone] | | | | | | | [...] | | | | | [place] [address] | | | | | | [phone] | | | | | | | | +--------+ + + + + | 02/27/ | Appointment | Radiology | Dhara, | | | 2019 | | | [address] | | | | | | [address] [facility], | | | | | | [place] [address] | | | | | | [phone] | | | | | | | [...] | | | | | [place] [address] | | | | | | [phone] | | | | | | | [...] [place] | | | | | | [address] | | | | | | [phone] | | | | | | | [...] | | | | | [place] [address] | | | | | | [phone] | | | | | | | | | | | | Azul Yeboah, | | | | | | MD [address] | | | | | | [place] | | | | | | [place] [address] | | | | | | [phone] | | | | | | | [...] | | | | | | [place] [address] | | | | | | [phone] | | | | | | | | +--------+ + + + + documented as of this encounter Visit Diagnoses Not on filedocumented in this encounter"
--- OUTSIDE RECORDS SUMMARY | ~2020-02-18 | XMS | Encounter Summary ---
Demographics + + + | Address | [address] | | | [place] [address] | + + + | Home Phone [...] Team Providers + +------+ + | Care Compressed Gases Tester Name | Role | Phone | [...] | [address] [place] | [address] [facility], | | | | | [place], [place] | [place] [address] | | | | | [address] | [phone] | | | | | [phone] | | | +--------+ + + + [...] | | | | | [place] [address] | | | | | | [phone] | | | | | | | | | | | | Julia Fisher, | | | | | | PT | | +--------+ + + + + | 02/18/ | Appointment | Rehabilitation | Erika Ernst, | | | 2019 | | | DO [address] | | | | | | [place] [address] | | | | | | [phone] | | | | | | | | | | | | Genesis Ayon, OT | | +--------+ + + + + | 02/25/ | Office | Primary Care | Erika Ernst, | | | 2019 | Visit | | DO [address] | | | | | | [place] [address] | | | | | | [phone] | | | | | | | [...] | | | | | [place] [address] | | | | | | [phone] | | | | | | | | +--------+ + + + + | 02/27/ | Appointment | Radiology | Dhara, | | | 2019 | | | [address] | | | | | | [address] [facility], | | | | | | [place] [address] | | | | | | [phone] | | | | | | | | +--------+ + + + + | 03/04/ | Appointment | Rehabilitation | [facility] OT | | | 2019 | | | | | +--------+ + + + + | 03/09/ | Office | Orthopedic Surgery | Jeffrey Gandhi, | | 2019 | Visit | | [address] | | | | | | [place] [address] | | | | | | [phone] | | | | | | | [...] [place] | | | | | | [address] | | | | | | [phone] | | | | | | | [...] | | | | | [place] [address] | | | | | | [phone] | | | | | | | | | | | | Azul Yeboah, | | | | | | MD [address] | | | | | | [place] | | | | | | [place] [address] | | | | | | [phone] | | | | | | | | +--------+ + + + + | 04/08/ | Appointment | Nutrition | Janel Webster | | | 2019 | | | [place], [place]A | | +--------+ + + + + | 05/21/ | Office | Neurology | Dhara, | | | 2019 | Visit | | Cody, GUEST SERVICE AGENT [address] | | | | | | [address] [facility], | | | | | | [place] [address] | | | | | | [phone] | | | | | | | [...]
--- OUTSIDE RECORDS SUMMARY | ~2020-02-18 | XMS | Encounter Summary ---
Demographics + + + | Address | [address] | | | [place] [address] | + + + | Home Phone [...] Team Providers + +------+ + | Care African History Professor Name | Role | Phone | [...] | | | CENTER [address] | [facility] | | | | | [address] [place] | [place] [address] | | | | | [address] | [phone] | | | | | [phone] | | | +--------+ + + + [...] | | | | | [place] [address] | | | | | | [phone] | | | | | | | | | | | | Julia Fisher, | | | | | | PT | | +--------+ + + + + | 02/18/ | Appointment | Rehabilitation | rEika Ernst, | | | 2019 | | | DO [address] | | | | | | [place] [address] | | | | | | [phone] | | | | | | | | | | | | Genesis Ayon, SUSAN | | +--------+ + + + + | 02/25/ | Office | Primary Care | Erika Ernst, | | | 2019 | Visit | | DO [address] | | | | | | [place] [address] | | | | | | [phone] | | | | | | | [...] | | | | | [place] [address] | | | | | | [phone] | | | | | | | | +--------+ + + + + | 02/27/ | Appointment | Radiology | Dhara, | | | 2019 | | | [address] | | | | | | [address] [facility], | | | | | | [place] [address] | | | | | | [phone] | | | | | | | | +--------+ + + + + | 03/04/ | Appointment | Rehabilitation | [facility] OT | | | 2019 | | | | | +--------+ + + + + | 03/09/ | Office | Orthopedic Surgery | Jeffrey Gandhi, | | | 2019 | Visit | | [address] [facility] | | | | | | [place] [address] | | | | | | [phone] | | | | | | | [...] [place] | | | | | | [address] | | | | | | [phone] | | | | | | | [...] | | | | | [place] [address] | | | | | | [phone] | | | | | | | | | | | | Azul Yeboah, | | | | | | MD [address] | | | | | | [place] | | | | | | [place] [address] | | | | | | [phone] | | | | | | | [...] | | | | | | [place] [address] | | | | | | [phone] | | | | | | | | +--------+ + + + + documented as of this encounter Visit Diagnoses Not on filedocumented in this encounter"
--- OUTSIDE RECORDS SUMMARY | ~2020-02-18 | XMS | Encounter Summary ---
Demographics + + + | Address | [address] | | | [place] [address] | + + + | Home Phone [...] Team Providers + +------+ + | Care International Bank Manager Name | Role | Phone | + +------+ + | Erika Ernst DO | PCP | | + +------+ + Reason for Visit + + + | Reason | Comments | + + + | Pharyngitis | sore throat, ear pressure x 1 day | + + + Encounter Details +--------+---------+ + + + | Date | Type | Department | Care Team | Description | +--------+---------+ + + + | 11/26/ | Office | [place] [facility] | Alem Guerrero, | Viral URI with cough | | 2020 | Visit | [facility] | RN MATERNAL CHILD-SPECIALIST ICU [address] | (Primary Dx); Sore | | | | [facility] [address] | [address] [place] | throat | | | | [address] [place], | [place] [address] | | | | | [place] [address] | [phone] | | | | | [phone] | | | +--------+---------+ + + + [...] + + + | Blood Pressure | 137/86 | 11/26/2019 5:21 PM | | | | | PST | | + + + + + | Pulse | 99 | 11/26/2019 5:21 PM | | | | | PST | | + + + + + | Temperature | 36.8 C (98.3 F) | 11/26/2019 5:21 PM | | | | | PST | | + + + + + | Respiratory Rate | 20 | 11/26/2019 5:21 PM | | | | | PST | | + + + + + | Oxygen Saturation | 97% | 11/26/2019 5:21 PM | 97-99 | | | | PST | | [...] Instructions Patient Instructions Alem Guerrero APRN-DWAINE - 11/26/2019 5:10 PM PSTPlan: Viral nasop haryngitis -Your strep test today was negative, so antibiotics are most likely not needed since your s ymptoms are most likely caused by a viral infection (not bacterial). We did a throat culture to verify and will call you if it is positive -Treatment is essentially supportive, including lots of rest, plenty of fluids, and good nu trition. -Pain can be managed with ibuprofen, tylenol, salt water gargles, chloraseptic spray, and/o r throat lozenges. Do not go to sleep using throat lozenges due to risk of choking. - Cool mist humidifier in bedroom. - warm liquids with honey -May try Traditional Medicinals Organic Lemon Echinacea Throat Coat tea for relief of sympt oms. -Use nasal saline spray frequently throughout the day. -Recheck if not well in 7-10 days, sooner if worsening, or you have fever >100.5 beyond the first 3 days of illness. documented in this encounter Progress Notes Alem Guerrero APRN-FNP - 11/26/2019 5:10 PM PSTFormatting of this note might be diffe rent from the original. Subjective: Patient ID: Andrea Suh is a 29 y.o. female. Chief Complaint Patient presents with Pharyngitis sore throat, ear pressure x 1 day Smoking history: Never Smoker. HPI A 29 year old patient presents today with a sore throat and ear pressure for 1 day. She cla ims she claims she had some chills earlier today after her procedure at dermatology for a sk in lesion removal; measured her Temp and it was 98.5 F. She thought she was having an asthma flare up yesterday and was given Spiriva and prednisone by her hand baseball sewer to treat it and nam s been providing some relief for those symptoms. Her main concern today was possibility of s trep. No difficulty swallowing or difficulty breathing. Allergies Allergen Reactions Latex Rash Lexapro [Escitalopram] Palpitations Ciprofloxacin Nausea Only Deblitane [Norethindrone] Hydrocodone Hives Milk Unknown Nickel Dermatitis, Itching and Swelling Uncoded Nonscreenable Allergen Other (See Comments) Other reaction(s): Proclivity to C-diff with certain antibiotics Adhesive & Tape Rash Patient Active Problem List Diagnosis Date Noted POA Sprain of deltoid ligament of right ankle, [...] 1-4 treatments every 1-4 hours as needed (Patient not taking: Report ed on 11/26/2019) 60 vial 0 azelastine 0.1% nasal spray instill 1 to 2 spray into each nostril twice a day if neede d 1 busPIRone (BUSPAR) 10 MG tablet Take 10 mg 5 times a day (Patient not taking: Reported on 11/26/2019) 150 tablet 0 Cetirizine HCl (ZYRTEC PO) Take by mouth. Once a week cholecalciferol (VITAMIN D-3) 1.25 mg (50,000 units) tablet Take one tab WEEKLY for 4 m onths (Patient not taking: Reported on 11/26/2019) 16 tablet 0 COMBIVENT RESPIMAT 20-100 MCG/ACT inhaler inhale 1 puff INTO THE LUNGS every 4 hours if needed for shortness of breath (Patient not taking: Reported on 11/26/2019) 1 Inhaler 5 diphenhydrAMINE (BENADRYL) 25 MG capsule Take 25 mg by mouth nightly as needed for Itch ing. DULERA 200-5 MCG/ACT inhaler inhale 2 puffs by mouth twice a day 1 ferrous sulfate (TARAN-IN-HEMANTH) 15 mg/mL SOLN 3 ml liquid iron TID (Patient not taking: Re ported on 11/26/2019) 150 mL 5 fexofenadine-pseudoePHEDrine (JOSÉ ANTONIO-D 24) 180-240 MG per tablet Take 1 tablet by mout h. Fluocinonide 0.1 % CREA apply A SMALL AMOUNT to affected area twice a day 0 fluticasone (FLONASE ALLERGY RELIEF) 50 mcg/nasal spray 1 spray by Nasal route Daily as needed for Allergies. gabapentin (NEURONTIN) 100 mg capsule levothyroxine (SYNTHROID) 50 mcg tablet Take 50 mcg daily (Patient not taking: Reported on 11/26/2019) 30 tablet 11 MAGNESIUM CHLORIDE PO Take by mouth. meclizine (ANTIVERT) 12.5 mg tablet take 1 tablet by mouth every 6 hours if needed for dizziness (Patient not taking: No sig reported) 60 tablet 0 melatonin [address] 10 mg under the tongue nightly. montelukast (SINGULAIR) 10 mg tablet take 1 tablet by mouth every evening (Patient not taking: Reported on 11/26/2019) 30 tablet 11 ondansetron (ZOFRAN ODT) 8 mg disintegrating tablet Take 1 tablet by mouth every 8 hour s as needed for Nausea. (Patient not taking: Reported on 11/26/2019) 12 tablet 0 prazosin (MINIPRESS) 1 mg capsule Take BID (Patient not taking: Reported on 11/26/2019) 60 capsule 11 predniSONE (DELTASONE) 20 mg tablet Take 20 mg by mouth 2 times daily. 20mg BID x 5 day s. QVAR REDIHALER 80 MCG/ACT inhaler Take 2 puffs by mouth 2 times daily. tiotropium (SPIRIVA) 18 mcg inhalation capsule Inhale 18 mcg into the lungs Daily. tiZANidine (ZANAFLEX) 4 mg tablet Take 1 tablet by mouth every 8 hours as needed. (Ninfa ent not taking: Reported on 11/26/2019) 30 tablet 2 traMADol (ULTRAM) 50 mg tablet Take 50 mg by mouth every 6 hours as needed. UNABLE TO FIND Med Name: reishi Valerian Root 250 MG CAPS Take by mouth. Zinc 10 MG LOZG No current facility-administered medications on file prior to visit. Objective: BP 137/86 | Pulse 99 | Temp 36.8 C (98.3 F) (Oral) | Resp 20 | SpO2 97% Comment: 97 -99 Physical Exam Constitutional: She is oriented to person, place, and time. She appears well-developed and well-nourished. Does not appear acutely unwell HENT: Right Ear: Hearing, tympanic membrane and ear canal normal. There is drainage (mild). Left Ear: Hearing, tympanic membrane and ear canal normal. There is drainage (mild). Mouth/Throat: Uvula is midline and oropharynx is clear and moist. No oropharyngeal exudate, posterior oropharyngeal edema or posterior oropharyngeal erythema. Mild drainage. Eyes: Pupils are equal, round, and reactive to light. Conjunctivae and EOM are normal. Neck: Normal range of motion. Neck supple. Cardiovascular: Normal rate, regular rhythm and normal heart sounds. Pulmonary/Chest: Effort normal and breath sounds normal. No respiratory distress. She has n o wheezes. She has no rales. Lymphadenopathy: She has no cervical adenopathy. Neurological: She is alert and oriented to person, place, and time. Skin: Skin is warm and dry. No rash noted. No pallor. Psychiatric: She has a normal mood and affect. Recent Results (from the past 24 hour(s)) POCT Rapid Strep A Screen Result Value Ref Range Rapid Strep A Screen Negative Negative Internal QC Acceptable Acceptable CULTURE SENT TO LAB Lot Number Expiration Date None Assessment: 1. Viral URI with cough 2. Sore throat - POCT Rapid Strep A Screen - Culture, Strep A, Throat Plan: Patient presents today with symptoms consistent with a viral URI. She complains of a sore t hroat and ear pressure/pain. Mild bilateral ear drainage and mild oropharyngeal drainage fou nd on exam. Physical exam was otherwise unremarkable. Her rapid Strep A screen was negative and was sent for culture; will treat if indicated. Supportive care was advised including inc reased fluid intake and warm liquids with honey. Strict follow-up/ED precautions were discus sed with worsening symptoms. Return if symptoms worsen or fail to improve, for with pcp. Electronically signed by: DWAINE Tavera 11/26/2019 5:51 PM [facility] Note: Part of this report was transcribed using voice recognition software. Every effort wa s made to ensure accuracy. However, inadvertent computerized senior product integrity engineer errors may be pre sent. This documentation was prepared by bowen George. All aspects of this kareem rt reviewed for accuracy and content by Alem COLLIER at the date and time of service. documented in this encounter Plan of Treatment +--------+ + + + + | Date | Type | Specialty | Care Team | Description | +--------+ + + + + | 02/18/ | Appointment | Rehabilitation | Erika Ernst, | | 2019 | | | DO [address] [place] [address] | | | | | | [facility] [place] [address] | | | | | | [phone] | | | | | | | | | | | | Julia Fisher, | | | | | | PT | | +--------+ + + + + | 02/18/ | Appointment | Rehabilitation | Erika Ernst, | | | 2019 | | | DO [address] | | | | | | [place] [address] | | | | | | [phone] | | | | | | | | | | | | Genesis Ayon, OT | | +--------+ + + + + | 02/25/ | Office | Primary Care | Erika Ernst, | | | 2019 | Visit | | DO [address] | | | | | | [place] [address] | | | | | | [phone] | | | | | | | [...] | | | | | [place] [address] | | | | | | [phone] | | | | | | | | +--------+ + + + + | 02/27/ | Appointment | Radiology | Dhara, | | 2019 | | | DWAINE Ross [address] | | | | | | [address] [place], | | | | | | [place] [address] | | | | | | [phone] | | | | | | | | +--------+ + + + + | 03/04/ | Appointment | Rehabilitation | Genesis Ayon OT | | | 2019 | | | | | +--------+ + + + + | 03/09/ | Office | Orthopedic Surgery | Jeffrey Gandhi, | | | 2019 | Visit | | [address] | | | | | | [place] [address] | | | | | | [phone] | | | | | | | [...] [place] | | | | | | [address] | | | | | | [phone] | | | | | | | [...] | | | | | [place] [address] | | | | | | [phone] | | | | | | | | | | | | Azul Yeboah, | | | | | | MD [address] | | | | | | [place] | | | | | | [place] [address] | | | | | | [phone] | | | | | | | [...] | | | | | | [place] [address] | | | | | | [phone] | | | | | | | | +--------+ + + + + documented as of this encounter Procedures + +--------+ + + + | Procedure Name | Priori | Date/Time | Associated Diagnosis | Comments | | | ty | | | | + +--------+ + + + | CULTURE, STREP A, | Routin | 11/26/2019 | [...] + documented in this encounter Results Culture, Strep A, Throat (11/26/2019 5:45 PM [...] + + | [place] [facility] | [address] | [place] | [phone] | | [facility] | | [address] | | + + + + + [...] of unspecified site | + + | Sore throat Acute pharyngitis | + + documented in this encounter"
--- OUTSIDE RECORDS SUMMARY | ~2020-02-18 | XMS | Encounter Summary ---
Demographics + + + | Address | [address] | | | [place] [address] | + + + | Home Phone [...] Team Providers + +------+ + | Care Mailing Clerk Name | Role | Phone | [...] deficiency | | 2019 | | [facility] | DO [address] | | | | | [facility] CL[facility] | [facility] [place] [address] | | | | | [address] [place], | [phone] | | | | | [place] [address] | | | | | | [phone] | | | +--------+ + + + [...] 2019 | | | DO [address] | | | | | | [place] [address] | | | | | | [phone] | | | | | | | | | | | | Julia Fisher, | | | | | | PT | | +--------+ + + + + | 02/18/ | Appointment | Rehabilitation | Erika Ernst, | | | 2019 | | | DO [address] [place] | | | | | | [place] [address] | | | | | | [phone] | | | | | | | | | | | | Genesis Ayon OT | | +--------+ + + + + | 02/25/ | Office | Primary Care | Erika Ernst, | | | 2019 | Visit | | DO [address] [place] | | | | | | [place] [address] | | | | | | [phone] | | | | | | | [...] | | | | | [place] [address] | | | | | | [phone] | | | | | | | | +--------+ + + + + | 02/27/ | Appointment | Radiology | Dhara, | | | 2019 | | | DWAINE Ross [address] | | | | | | [address]TH [facility], | | | | | | [place] [address] | | | | | | [phone] | | | | | | | [...] | | | | [place], [place] [address] | | | | | | [phone] | | | | | | | [...] [place] | | | | | | [address] | | | | | | [phone] | | | | | | | [...] | | | | | [place] [address] | | | | | | [phone] | | | | | | | | | | | | Azul Yeboah, | | | | | | MD [address] | | | | | | [place] | | | | | | [place] [address] | | | | | | [phone] | | | | | | | [...] | | | | | | [place] [address] | | | | | | [phone] | | | | | | | | +--------+ + + + + documented as of this encounter Visit Diagnoses + + | Diagnosis | + + | Iron deficiency Other disorders of iron metabolism | + + documented in this encounter"
--- OUTSIDE RECORDS SUMMARY | ~2020-02-18 | XMS | Encounter Summary ---
Demographics + + + | Address | [address] | | | [place] [address] | + + + | Home Phone [...] Team Providers + +------+ + | Care Broodmare Barn Groom Name | Role | Phone | + [...] + + | Pending | Specialty | | Diagnoses | Klever, | Provider | | Review | Services | | Anxiety | Erika Salter, DO | Not, In | | | Required | | with | [address] | System | | | | | somatization | [place], | [place] | | | | | | [place] [address] | Health and | | | | | Depression, | Phone: | Service | | | | | unspecified | [phone] | | | | | | depression | Fax: | | | | | | type | [phone] | | + + + + + + + Encounter Details +--------+ + + + + | Date | Type | Department | Care Team | Description | +--------+ + + + + | 11/06/ | Orders Only | [place] [facility] | Erika Ernst, | Anxiety with | | 2020 | | [facility] | DO [address] | somatization | | | | MEDICAL CL[facility] [address] | [place] [address] | (Primary Dx); | | | | [address] [place], | [phone] | Depression, | | | | [place] [address] | | unspecified | | | | [phone] | | depression type | +--------+ + + + + [...] | | | | | [place] [address] | | | | | | [phone] | | | | | | | | | | | | Julia Fisher, | | | | | | PT | | +--------+ + + + + | 02/18/ | Appointment | Rehabilitation | Erika Ernst, | | | 2019 | | | DO [address] [place] | | | | | | [place] [address] | | | | | | [phone] | | | | | | | | | | | | Genesis Ayon, SUSAN | | +--------+ + + + + | 02/25/ | Office | Primary Care | Erika Ernst, | | | 2019 | Visit | | DO [address] [place] [address] | | | | | | [place] [address] | | | | | | [phone] | | | | | | | [...] | | | | | [place] [address] | | | | | | [phone] | | | | | | | | +--------+ + + + + | 02/27/ | Appointment | Radiology | Dhara, | | | 2019 | | | DWAINE Ross [address] | | | | | | [address] [place], | | | | | | [place] [address] | | | | | | [phone] | | | | | | | [...] | | | | | [place] [address] | | | | | | [phone] | | | | | | | [...] [place] | | | | | | [address] | | | | | | [phone] | | | | | | | [...] | | | | | [place] [address] | | | | | | [phone] | | | | | | | | | | | | Azul Yeboah, | | | | | | [address] | | | | | | [place] | | | | | | [place] [address] | | | | | | [phone] | | | | | | | [...] | | | | | | [place] [address] | | | | | | [phone] | | | | | | | | +--------+ + + + + + + +--------+ + + | Name | Type | Priori | Associated Diagnoses | Order Schedule | | | | ty | | | + + +--------+ + + | Behavioral Health, | Outpatient | Routin | Anxiety with | Ordered: 11/06/2019 | | External - AMB | Referral | e | somatization | | | Referral | | | Depression, | | | | | | unspecified | | | | | | depression type | | + + +--------+ + + documented as of this encounter Visit Diagnoses + + | Diagnosis | + + | 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
--- OUTSIDE RECORDS SUMMARY | ~2020-02-18 | XMS | Encounter Summary ---
Demographics + + + | Address | [address] | | | [place] [address] | + + + | Home Phone [...] Providers + +------+ + | Care Meat Processor Name | Role | Phone | [...] [address] [place] | [place] [address] | | | | | [place], [place] | [phone] | | | | | [address] | | | | | | [phone] | | | +--------+ + + + [...] [address] | | | | | | [phone] | | | | | | | | | | | | Julia Fisher, | | | | | | PT | | +--------+ + + + + | 02/18/ | Appointment | Rehabilitation | Erika Ernst, | | | 2019 | | | DO [address] [place] | | | | | | [place] [address] | | | | | | [phone] | | | | | | | | | | | | Genesis Ayon, OT | | +--------+ + + + + | 02/25/ | Office | Primary Care | Erika Ernst, | | | 2019 | Visit | | DO [address] [place] | | | | | | [place] [address] | | | | | | [phone] | | | | | | | [...] | | | | | [place] [address] | | | | | | [phone] | | | | | | | | +--------+ + + + + | 02/27/ | Appointment | Radiology | Dhara, | | | 2019 | | | DWAINE Ross [address] | | | | | | [facility] | | | | | | [place] [address] | | | | | | [phone] | | | | | | | | +--------+ + + + + | 03/04/ | Appointment | Rehabilitation | Genesis Ayon OT | | | 2019 | | | | | +--------+ + + + + | 03/09/ | Office | Orthopedic Surgery | Jeffrey Gandhi, | | 2019 | Visit | | [address] | | | | | | [place] [address] | | | | | | [phone] | | | | | | | [...] [place] | | | | | | [address] | | | | | | [phone] | | | | | | | [...] | | | | | [place] [address] | | | | | | [phone] | | | | | | | | | | | | Azul Yeboah, | | | | | | [address] | | | | | | [place] | | | | | | [place] [address] | | | | | | [phone] | | | | | | | [...] | | | | | | [place] [address] | | | | | | [phone] | | | | | | | [...]
--- OUTSIDE RECORDS SUMMARY | ~2020-02-18 | XMS | Encounter Summary ---
Demographics + + + | Address | [address] | | | [place] [address] | + + + | Home Phone [...] Team Providers + +------+ + | Care Brake Liner Name | Role | Phone | + +------+ + PCP | Unavailable | + +------+ + Encounter Details +--------+ + + + + | Date | Type | Department | Care Team | Description | +--------+ + + + + | 08/21/ | [facility] | Nicanor Mckeon | | | 2016 | Encounter | HOSPITAL NUR[facility] | MD Caryn [address] | | | | | [address] | [place] | | | | | [place] | [address] | | | | | [address] | [phone] | | | | | [phone] | | | +--------+ + + + [...] | | 2020 | | | DO [address] [place] [address] | | | | | | [place], [place] [address] | | | | | | [phone] | | | | | | | | | | | | Julia Fisher, | | | | | | PT | | +--------+ + + + + | 02/18/ | Appointment | Rehabilitation | Erika Ernst, | | | 2019 | | | DO [address] [place] | | | | | | [place] [address] | | | | | | [phone] | | | | | | | | | | | | Genesis Ayon, SUSAN | | +--------+ + + + + | 02/25/ | Office | Primary Care | Erika Ernst, | | | 2019 | Visit | | DO [address] [place] | | | | | | [place] [address] | | | | | | [phone] | | | | | | | [...] | | | | | [place] [address] | | | | | | [phone] | | | | | | | | +--------+ + + + + | 02/27/ | Appointment | Radiology | Dhaar, | | | 2019 | | | DWAINE Ross [address] | | | | | | [address] [place], | | | | | | [place] [address] | | | | | | [phone] | | | | | | | [...] | | | | | [place] [address] | | | | | | [phone] | | | | | | | [...] [place] | | | | | | [address] | | | | | | [phone] | | | | | | | [...] | | | | | [place] [address] | | | | | | [phone] | | | | | | | | | | | | Azul Yeboah, | | | | | | MD [address] | | | | | | [place] | | | | | | [place] [address] | | | | | | [phone] | | | | | | | [...] | | | | | | [place] [address] | | | | | | [phone] | | | | | | | | +--------+ + + + + documented as of this encounter Visit Diagnoses Not on filedocumented in this encounter"
--- OUTSIDE RECORDS SUMMARY | ~2020-02-18 | XMS | Encounter Summary ---
Demographics + + + | Address | [address] | | | [place] [address] | + + + | Home Phone [...] Providers + +------+ + | Care Senior Marketing Specialist Name | Role | Phone | [...] | [address] | | | | | [address] | | | | | | [phone] | | | +--------+ + + + [...] 2019 | | | DO [address] | | | | | | [place] [address] | | | | | | [phone] | | | | | | | | | | | | Julia Fisher, | | | | | | PT | | +--------+ + + + + | 02/18/ | Appointment | Rehabilitation | Erika Ernst, | | | 2019 | | | DO [address] [place] | | | | | | [place] [address] | | | | | | [phone] | | | | | | | | | | | | Genesis Ayon OT | | +--------+ + + + + | 02/25/ | Office | Primary Care | Erika Ernst, | | | 2019 | Visit | | DO [address] [place] | | | | | | [place] [address] | | | | | | [phone] | | | | | | | [...] | | | | | [place] [address] | | | | | | [phone] | | | | | | | | +--------+ + + + + | 02/27/ | Appointment | Radiology | Dhara, | | | 2019 | | | DWAINE Ross [address] | | | | | | [address] [facility], | | | | | | [place] [address] | | | | | | [phone] | | | | | | | | +--------+ + + + + | 03/04/ | Appointment | Rehabilitation | Genesis Ayon OT | | | 2019 | | | | | +--------+ + + + + | 03/09/ | Office | Orthopedic Surgery | Jeffrey Gandhi, | | | 2019 | Visit | | [address] | | | | | | [place] [address] | | | | | | [phone] | | | | | | | [...] [place] | | | | | | [address] | | | | | | [phone] | | | | | | | [...] | | | | | [place] [address] | | | | | | [phone] | | | | | | | | | | | | Azul Yeboah, | | | | | | MD [address] | | | | | | [place] | | | | | | [place] [address] | | | | | | [phone] | | | | | | | [...] | | | | | | [place] [address] | | | | | | [phone] | | | | | | | | +--------+ + + + + documented as of this encounter Visit Diagnoses Not on filedocumented in this encounter"
--- OUTSIDE RECORDS SUMMARY | ~2020-02-18 | XMS | Encounter Summary ---
Demographics + + + | Address | [address] | | | [place] [address] | + + + | Home Phone [...] + +------+ + | Care Video Game Repair Technician Name | Role | Phone [...] Bilateral | | 2019 | Visit | [facility] | ORDER WORKER-SUPERVISOR [address] | temporomandibular | | | | [facility] [address] | [address] [place] | joint pain (Primary | | | | [address] [place], | [place] [address] | Dx) | | | | [place] [address] | [phone] | | | | | [phone] | | | +--------+---------+ + + + [...] mouth. Once a week Cholecalciferol (VITAMIN D3) 67876 units TABS Take 1 tablet by mouth [...] with right all his physical therapist about [facility] physical th erapy. She reported that Andrea [...] as planned. Electronically signed by: BRADLEY [email or web address] [facility], Walk-in Clinic Note: Part of this report was transcribed using voice recognition software. Every effort wa s made to ensure accuracy. However, inadvertent computerized rubber down errors may be pre sent. documente d [...] | | | | | [place] [address] | | | | | | [phone] | | | | | | | | | | | | Julia Fisher, | | | | | | PT | | +--------+ + + + + | 02/18/ | Appointment | Rehabilitation | Erika Ernst, | | | 2019 | | | DO [address] [place] | | | | | | [place] [address] | | | | | | [phone] | | | | | | | | | | | | Genesis Ayon OT | | +--------+ + + + + | 02/25/ | Office | Primary Care | Erika Ernst, | | | 2019 | Visit | | DO [address] [place] | | | | | | [place] [address] | | | | | | [phone] | | | | | | | [...] | | | | | [place] [address] | | | | | | [phone] | | | | | | | | +--------+ + + + + | 02/27/ | Appointment | Radiology | Dhara, | | | 2019 | | | DWAINE Ross [address] | | | | | | [address] [place], | | | | | | [place] [address] | | | | | | [phone] | | | | | | | | +--------+ + + + + | 03/04/ | Appointment | Rehabilitation | Genesis Ayon OT | | | 2019 | | | | | +--------+ + + + + | 03/09/ | Office | Orthopedic Surgery | Jeffrey Gandhi, | | | 2019 | Visit | | [place] [address] | | | | | | [place] [address] | | | | | | [phone] | | | | | | | [...] [place] | | | | | | [address] | | | | | | [phone] | | | | | | | [...] | | | | | [place] [address] | | | | | | [phone] | | | | | | | | | | | | Azul Yeboah, | | | | | | MD [address] | | | | | | [place] | | | | | | [place] [address] | | | | | | [phone] | | | | | | | [...] | | | | | | [place] [address] | | | | | | [phone] | | | | | | | | +--------+ + + + + documented as of this encounter Visit Diagnoses + + | Diagnosis | + + | Bilateral temporomandibular joint pain - Primary Arthralgia of temporomandibular | | joint | + + documented in this encounter
--- OUTSIDE RECORDS SUMMARY | ~2020-02-18 | XMS | Encounter Summary ---
Demographics + + + | Address | [address] | | | [place] [address] | + + + | Home Phone [...] Team Providers + +------+ + | Care Systems Administrator Name | Role | Phone [...] | [facility] | [place] [address] | | | | | [address] [place], | [phone] | | | | | [place] [address] | | | | | | [phone] | | | +--------+ + + + [...] | | | | | [place] [address] | | | | | | [phone] | | | | | | | | | | | | Julia Fisher, | | | | | | PT | | +--------+ + + + + | 02/18/ | Appointment | Rehabilitation | Erika Ernst, | | | 2019 | | | DO [address] [place] | | | | | | [place] [address] | | | | | | [phone] | | | | | | | | | | | | Genesis Ayon OT | | +--------+ + + + + | 02/25/ | Office | Primary Care | Erika Ernst, | | | 2019 | Visit | | DO [address] [place] | | | | | | [place] [address] | | | | | | [phone] | | | | | | | [...] | | | | | [place] [address] | | | | | | [phone] | | | | | | | | +--------+ + + + + | 02/27/ | Appointment | Radiology | Dhara, | | | 2019 | | | DWAINE Ross [address] | | | | | | [address] [place], | | | | | | [place] [address] | | | | | | [phone] | | | | | | | | +--------+ + + + + | 03/04/ | Appointment | Rehabilitation | Genesis Ayon OT | | | 2019 | | | | | +--------+ + + + + | 03/09/ | Office | Orthopedic Surgery | Jeffrey Gandhi, | | | 2019 | Visit | | [address] | | | | | | [place] [address] | | | | | | [phone] | | | | | | | [...] [place] | | | | | | [address] | | | | | | [phone] | | | | | | | [...] | | | | | [place] [address] | | | | | | [phone] | | | | | | | | | | | | Azul Yeboah, | | | | | | MD [address] | | | | | | [place] | | | | | | [place] [address] | | | | | | [phone] | | | | | | | [...] | | | | | | [place] [address] | | | | | | [phone] | | | | | | | | +--------+ + + + + documented as of this encounter Visit Diagnoses Not on filedocumented in this encounter"
--- OUTSIDE RECORDS SUMMARY | ~2020-02-18 | XMS | Encounter Summary ---
Demographics + + + | Address | [address] | | | [place] [address] | + + + | Home Phone [...] Providers + +------+ + | Care Wardrobe Supervisor Name | Role | Phone | [...] Related | | 2020 | | [facility] | DO [address] [place] | (Pt request call | | | | [facility] | [facility] [address] | back today re: med | | | | 4TH [facility], | [phone] | reccomendation by | | | | [place] [address] | | Dr. Lawton) | | | | [phone] | | | +--------+ + + + [...] | | | | | [place] [address] | | | | | | [phone] | | | | | | | | | | | | Julia Fisher, | | | | | | PT | | +--------+ + + + + | 02/18/ | Appointment | Rehabilitation | Erika Ernst, | | | 2019 | | | DO [address] [place] | | | | | | [place] [address] | | | | | | [phone] | | | | | | | | | | | | Genesis Ayon OT | | +--------+ + + + + | 02/25/ | Office | Primary Care | Erika Ernst, | | | 2019 | Visit | | DO [address] [place] | | | | | | [place] [address] | | | | | | [phone] | | | | | | | [...] | | | | | [place] [address] | | | | | | [phone] | | | | | | | | +--------+ + + + + | 02/27/ | Appointment | Radiology | Dhara, | | 2019 | | | DWAINE Ross [address] | | | | | | [address] [place], | | | | | | [place] [address] | | | | | | [phone] | | | | | | | [...] HOSPITAL | | | | | | [place] [address] | | | | | | [phone] | | | | | | | [...] [place] | | | | | | [address] | | | | | | [phone] | | | | | | | [...] | | | | | [place] [address] | | | | | | [phone] | | | | | | | | | | | | Azul Yeboah, | | | | | | MD [address] | | | | | | [place] | | | | | | [place] [address] | | | | | | [phone] | | | | | | | [...] | | | | | | [place] [address] | | | | | | [phone] | | | | | | | | +--------+ + + + + documented as of this encounter Visit Diagnoses + + | Diagnosis | + + | TMJ (temporomandibular joint disorder) - Primary Temporomandibular joint disorders, | | unspecified | + + documented in this encounter"
--- OUTSIDE RECORDS SUMMARY | ~2020-02-18 | XMS | Encounter Summary ---
Demographics + + + | Address | [address] | | | [place] [address] | + + + | Home Phone [...] Providers + +------+ + | Care Wood Barker Name | Role | Phone | + [...] | | | of left | [place] [address] | [place], [place] | | | | | ankle, | Phone: | [address] | | | | | subsequent | [phone] | Phone: | | | | | encounter | Fax: | [phone] | | | | | Procedures | [phone] | Fax: | | | | | [place] | | [phone] | +--------+ + + + + + [...] | [place], [place] | [place] [address] | encounter (Primary | | | | [address] | [phone] | Dx); Morbid obesity | | | | [phone] | | (HCC) | +--------+---------+ + + [...] although I will send her to our compliance advisor Dr. Mittal for a second opin ion [...] Maternal Grandmother Heart attack Maternal Aunt [place] Social History Social History Marital status: Single [...] and their vital signs recorded by my orthopaedic physician assistant today, a s found in this chart note. Electronically signed by: Abhi Grimes DO 11/16/2018 at 8:24 Note: Part of this report was transcribed using voice recognition software. Every effort wa s made to ensure accuracy. However, inadvertent computerized oracle technical developer errors may be pre sent. CC: Erika [...] | | | | | [place] [address] | | | | | | [phone] | | | | | | | | | | | | Julia Fisher, | | | | | | PT | | +--------+ + + + + | 02/18/ | Appointment | Rehabilitation | Erika Ernst, | | | 2019 | | | DO [address] [place] | | | | | | [place] [address] | | | | | | [phone] | | | | | | | | | | | | Genesis Ayon OT | | +--------+ + + + + | 02/25/ | Office | Primary Care | Erika Ernst, | | | 2019 | Visit | | DO [address] [place] | | | | | | [place] [address] | | | | | | [phone] | | | | | | | [...] | | | | | [place] [address] | | | | | | [phone] | | | | | | | | +--------+ + + + + | 02/27/ | Appointment | Radiology | Dhara, | | | 2019 | | | DWAINE [address] | | | | | | [facility] | | | | | | [place] [address] | | | | | | [phone] | | | | | | | [...] [place] | | | | | | [place] [address] | | | | | | [phone] | | | | | | | [...] [place] | | | | | | [address] | | | | | | [phone] | | | | | | | [...] | | | | | [place] [address] | | | | | | [phone] | | | | | | | | | | | | Azlu Yeboah, | | | | | | MD [address] | | | | | | [place] | | | | | | [place] [address] | | | | | | [phone] | | | | | | | [...] | | | | | [address] [place], | | | | | | [place] [address] | | | | | | [phone] | | | | | | | [...]
--- OUTSIDE RECORDS SUMMARY | ~2020-02-18 | XMS | Encounter Summary ---
Demographics + + + | Address | [address] | | | [place] [address] | + + + | Home Phone [...] Providers + +------+ + | Care Warehouse Guard Name | Role | Phone | + [...] | [place] | [place] [address] | | | | | [address] | [phone] | | | | | [phone] | | | +--------+ + + + [...] | | | | | [place] [address] | | | | | | [phone] | | | | | | | | | | | | Julia Fisher, | | | | | | PT | | +--------+ + + + + | 02/18/ | Appointment | Rehabilitation | Erika Ernst, | | | 2019 | | | DO [address] [place] | | | | | | [place] [address] | | | | | | [phone] | | | | | | | | | | | | Genesis Ayon OT | | +--------+ + + + + | 02/25/ | Office | Primary Care | Erika Ernst, | | | 2019 | Visit | | DO [address] [place] | | | | | | [place] [address] | | | | | | [phone] | | | | | | | [...] | | | | | [place] [address] | | | | | | [phone] | | | | | | | | +--------+ + + + + | 02/27/ | Appointment | Radiology | Dhara, | | | 2019 | | | DWAINE Ross [address] | | | | | | [address] [place], | | | | | | [place] [address] | | | | | | [phone] | | | | | | | | +--------+ + + + + | 03/04/ | Appointment | Rehabilitation | Genesis Ayon OT | | | 2019 | | | | | +--------+ + + + + | 03/09/ | Office | Orthopedic Surgery | Jeffrey Gandhi, | | | 2019 | Visit | | [facility] [facility] | | | | | | [place] [address] | | | | | | [phone] | | | | | | | [...] [place] | | | | | | [address] | | | | | | [phone] | | | | | | | [...] | | | | | [place] [address] | | | | | | [phone] | | | | | | | | | | | | Azul Yeboah, | | | | | | [address] | | | | | | [place] | | | | | | [place] [address] | | | | | | [phone] | | | | | | | [...] | | | | | | [place] [address] | | | | | | [phone] | | | | | | | | +--------+ + + + + documented as of this encounter Visit Diagnoses + + | Diagnosis | + + | Post-op pain - Primary Other acute postoperative pain | + + documented in this encounter"
--- OUTSIDE RECORDS SUMMARY | ~2020-02-18 | XMS | Encounter Summary ---
Demographics + + + | Address | [address] | | | [place] [address] | + + + | Home Phone [...] Providers + +------+ + | Care Veneer Cutter Name | Role | Phone | [...] | [place] | [place] [address] | | | | | [address] | [phone] | | | | | [phone] | | | +--------+ + + + [...] | | | | | [place] [address] | | | | | | [phone] | | | | | | | | | | | | Julia Fisher, | | | | | | PT | | +--------+ + + + + | 02/18/ | Appointment | Rehabilitation | Erika Ernst, | | | 2019 | | | DO [address] [place] | | | | | | [place] [address] | | | | | | [phone] | | | | | | | | | | | | Genesis Ayon, OT | | +--------+ + + + + | 02/25/ | Office | Primary Care | Erika Ernst, | | | 2019 | Visit | | DO [address] [place] | | | | | | [place] [address] | | | | | | [phone] | | | | | | | [...] | | | | | [place] [address] | | | | | | [phone] | | | | | | | | +--------+ + + + + | 02/27/ | Appointment | Radiology | Dhara, | | | 2019 | | | DWA[address] | | | | | | 4TH [facility], | | | | | | [place] [address] | | | | | | [phone] | | | | | | | | +--------+ + + + + | 03/04/ | Appointment | Rehabilitation | Genesis Ayon OT | | | 2019 | | | | | +--------+ + + + + | 03/09/ | Office | Orthopedic Surgery | Jeffrey Gandhi, | | | 2019 | Visit | | [address] | | | | | | [place] [address] | | | | | | [phone] | | | | | | | [...] [place] | | | | | | [address] | | | | | | [phone] | | | | | | | [...] | | | | | [place] [address] | | | | | | [phone] | | | | | | | | | | | | Azul Yeboah, | | | | | | MD [address] | | | | | | [place] | | | | | | [place] [address] | | | | | | [phone] | | | | | | | [...] | | | | | | [place] [address] | | | | | | [phone] | | | | | | | | +--------+ + + + + documented as of this encounter Visit Diagnoses Not on filedocumented in this encounter"
--- OUTSIDE RECORDS SUMMARY | ~2020-02-18 | XMS | Encounter Summary ---
Demographics + + + | Address | [address] | | | [place] [address] | + + + | Home Phone [...] Providers + +------+ + | Care Senior Catering Sales Manager Name | Role | Phone [...] [address] [place] | [place] [address] | | | | | [place], [place] | [phone] | | | | | [address] | | | | | | [phone] | | | +--------+ + + + [...] | | | 9 | | ([place]) | | [...] | | | | | | [place] [address] | | | | | | [phone] | | | | | | | | | | | | Julia Fisher, | | | | | | PT | | +--------+ + + + + | 02/18/ | Appointment | Rehabilitation | Erika Ernst, | | 2019 | | | DO [address] [place] | | | | | | [place] [address] | | | | | | [phone] | | | | | | | | | | | | Genesis Ayon, OT | | +--------+ + + + + | 02/25/ | Office | Primary Care | Erika Ernst, | | | 2019 | Visit | | DO [facility] [address] | | | | | | [place] [address] | | | | | | [phone] | | | | | | | [...] | | | | | [place] [address] | | | | | | [phone] | | | | | | | | +--------+ + + + + | 02/27/ | Appointment | Radiology | Dhara, | | | 2019 | | | DWAINE Ross [address] | | | | | | [address] [place], | | | | | | [place] [address] | | | | | | [phone] | | | | | | | [...] | | | | | [place] [address] | | | | | | [phone] | | | | | | | [...] [place] | | | | | | [address] | | | | | | [phone] | | | | | | | [...] | | | | | [place] [address] | | | | | | [phone] | | | | | | | | | | | | Azul Yeboah, | | | | | | [address] | | | | | | [place] | | | | | | [place] [address] | | | | | | [phone] | | | | | | | [...] | | | | | | [place] [address] | | | | | | [phone] | | | | | | | [...]
--- OUTSIDE RECORDS SUMMARY | ~2020-02-18 | XMS | Encounter Summary ---
Demographics + + + | Address | [address] | | | [place] [address] | + + + | Home Phone [...] Team Providers + +------+ + | Care Catering Service Manager Name | Role | Phone [...] 2018 | | [facility] | C, RN NEONATAL [address] | postoperative wound | | | | CENTER [address] | [address] [place] | check (Primary Dx) | | | | [place] | [address] | | | | | [address] | | | | | | [phone] | | | +--------+ + + + [...] | | | | | [place] [address] | | | | | | [phone] | | | | | | | | | | | | Julia Fisher, | | | | | | PT | | +--------+ + + + + | 02/18/ | Appointment | Rehabilitation | Erika Ernst, | | | 2019 | | | DO [address] [place] | | | | | | [place] [address] | | | | | | [phone] | | | | | | | | | | | | Genesis Ayon, OT | | +--------+ + + + + | 02/25/ | Office | Primary Care | Erika Ernst, | | | 2019 | Visit | | DO [address] [place] | | | | | | [place] [address] | | | | | | [phone] | | | | | | | [...] | | | | | [place] [address] | | | | | | [phone] | | | | | | | | +--------+ + + + + | 02/27/ | Appointment | Radiology | Dhara, | | | 2019 | | | DWAINE Ross [address] | | | | | | [address] [facility] [place], | | | | | | [place] [address] | | | | | | [phone] | | | | | | | | +--------+ + + + + | 03/04/ | Appointment | Rehabilitation | Genesis Ayon OT | | 2019 | | | | | +--------+ + + + + | 03/09/ | Office | Orthopedic Surgery | Jeffrey Gandhi, | | | 2019 | Visit | | [address] [facility] | | | | | | [place] [address] | | | | | | [phone] | | | | | | | [...] [place] | | | | | | [address] | | | | | | [phone] | | | | | | | [...] | | | | | [place] [address] | | | | | | [phone] | | | | | | | | | | | | Azul Yeboah, | | | | | | [address] | | | | | | [place] | | | | | | [place] [address] | | | | | | [phone] | | | | | | | [...] | | | | | | [place] [address] | | | | | | [phone] | | | | | | | [...] C?MRN: | | | | | | [id number] | | | [id number] | | | ecurit | | | [...] | | | St. | | | [place] | | | y H. | | [...] | | | St. | | | [place] | | | y | | | [...]
--- OUTSIDE RECORDS SUMMARY | ~2020-02-18 | XMS | Encounter Summary ---
Demographics + + + | Address | [address] | | | [place] [address] | + + + | Home Phone [...] Team Providers + +------+ + | Care Disability Advocate Name | Role | Phone | + +------+ + PCP | Unavailable | + +------+ + Encounter Details +--------+ + + + + | Date | Type | Department | Care Team | Description | +--------+ + + + + | 10/27/ | Hospital | [facility] | Camille Bush | | | 2016 | Encounter | [facility] | MCKENZIE Matt [address] | | | | | [facility] | 4th [facility], | | | | | 4TH [facility], | [place] [address] | | | | | [place] [address] | [phone] | | | | | [phone] | | | +--------+ + + + [...] | | | | | [place] [address] | | | | | | [phone] | | | | | | | | | | | | Julia Fisher, | | | | | | PT | | +--------+ + + + + | 02/18/ | Appointment | Rehabilitation | Erika Ernst, | | | 2019 | | | DO [address] [place] | | | | | | [place] [address] | | | | | | [phone] | | | | | | | | | | | | Genesis Ayon, OT | | +--------+ + + + + | 02/25/ | Office | Primary Care | Erika Ernst, | | | 2019 | Visit | | DO [address] [place] | | | | | | [place] [address] | | | | | | [phone] | | | | | | | [...] | | | | | [place] [address] | | | | | | [phone] | | | | | | | | +--------+ + + + + | 02/27/ | Appointment | Radiology | Dhara, | | | 2019 | | | DWAINE Ross [address] | | | | | | [address] [place], | | | | | | [place] [address] | | | | | | [phone] | | | | | | | | +--------+ + + + + | 03/04/ | Appointment | Rehabilitation | Genesis Ayon OT | | | 2019 | | | | | +--------+ + + + + | 03/09/ | Office | Orthopedic Surgery | Jeffrey Gandhi, | | | 2019 | Visit | | [place] [address] [facility] | | | | | | [place] [address] | | | | | | [phone] | | | | | | | [...] [place] | | | | | | [address] | | | | | | [phone] | | | | | | | [...] | | | | | [place] [address] | | | | | | [phone] | | | | | | | | | | | | Azul Yeboah, | | | | | | MD [address] | | | | | | [place] | | | | | | [place] [address] | | | | | | [phone] | | | | | | | [...] | | | | | | [place] [address] | | | | | | [phone] | | | | | | | | +--------+ + + + + documented as of this encounter Visit Diagnoses Not on filedocumented in this encounter"
--- OUTSIDE RECORDS SUMMARY | ~2020-02-18 | XMS | Encounter Summary ---
Demographics + + + | Address | [address] | | | [place] [address] | + + + | Home Phone [...] Team Providers + +------+ + | Care Pharmacist Per Diem Name | Role | Phone [...] Refill | | 2017 | | [facility] | DO [address] | | | | | [facility]ICAL [facility] [address] | [place] [address] | | | | | [address] [place], | [phone] | | | | | [place] [address] | | | | | | [phone] | | | +--------+--------+ + + + [...] | | | | | [place] [address] | | | | | | [phone] | | | | | | | | | | | | Julia Fisher, | | | | | | PT | | +--------+ + + + + | 02/18/ | Appointment | Rehabilitation | Erika Ernst, | | | 2019 | | | DO [address] [place] | | | | | | [place] [address] | | | | | | [phone] | | | | | | | | | | | | Genesis Ayon OT | | +--------+ + + + + | 02/25/ | Office | Primary Care | Erika Ernst, | | | 2019 | Visit | | DO [address] [place] | | | | | | [place] [address] | | | | | | [phone] | | | | | | | [...] | | | | | [place] [address] | | | | | | [phone] | | | | | | | | +--------+ + + + + | 02/27/ | Appointment | Radiology | Dhara, | | | 2019 | | | [address] | | | | | | 4TH [facility], | | | | | | [place] [address] | | | | | | [phone] | | | | | | | [...] | | | | | [place] [address] | | | | | | [phone] | | | | | | | [...] [place] | | | | | | [address] | | | | | | [phone] | | | | | | | [...] | | | | | [place] [address] | | | | | | [phone] | | | | | | | | | | | | Azul Yeboah, | | | | | | MD [address] | | | | | | [place] | | | | | | [place] [address] | | | | | | [phone] | | | | | | | [...] | | | | | | [place] [address] | | | | | | [phone] | | | | | | | | +--------+ + + + + documented as of this encounter Visit Diagnoses + + | Diagnosis | + + | Hypertension, unspecified type - Primary | + + documented in this encounter"
--- OUTSIDE RECORDS SUMMARY | ~2020-02-18 | XMS | Encounter Summary ---
Demographics + + + | Address | [address] | | | [place] [address] | + + + | Home Phone [...] Team Providers + +------+ + | Care Filling And Stapling Machine Operator Name | Role | Phone | + +------+ + | Erika Ernst DO | PCP | | + +------+ + Encounter Details +--------+ + + + + | Date | Type | Department | Care Team | Description | +--------+ + + + + | 06/17/ | Hospital | [facility] | Conversion | Diagnosis unknown | | 2018 | Encounter | CONVERSION [address] | Transaction, | | | | | [address] | Provider Unknown | | | | | [place], [place] | [phone] | | | | | [phone] | (Fax) | | | | | [phone] | | | +--------+ + + + [...] | 03/19/20 | | | (VITAMIN D3) [id number] | mouth Once a week | tablet [...] | | | | | [place] [address] | | | | | | [phone] | | | | | | | | | | | | Julia Fisher, | | | | | | PT | | +--------+ + + + + | 02/18/ | Appointment | Rehabilitation | Erika Ernst, | | | 2019 | | | DO [address] | | | | | | [place] [address] | | | | | | [phone] | | | | | | | | | | | | [facility] | | +--------+ + + + + | 02/25/ | Office | Primary Care | Erika Ernst, | | | 2019 | Visit | | DO [address] | | | | | | [place] [address] | | | | | | [phone] | | | | | | | [...] | | | | | [place] [address] | | | | | | [phone] | | | | | | | | +--------+ + + + + | 02/27/ | Appointment | Radiology | Dhara, | | | 2019 | | | DWAINE [address] | | | | | | [address] [facility], | | | | | | [place] [address] | | | | | | [phone] | | | | | | | [...] [place] | | | | | | [place] [address] | | | | | | [phone] | | | | | | | [...] [place] | | | | | | [address] | | | | | | [phone] | | | | | | | [...] | | | | | [place] [address] | | | | | | [phone] | | | | | | | | | | | | Azul Yeboah, | | | | | | MD [address] | | | | | | [address] | | | | | | [place] [address] | | | | | | [phone] | | | | | | | [...] | | | | [address] [place], | | | | | | [place] [address] | | | | | | [phone] | | | | | | | [...]
--- OUTSIDE RECORDS SUMMARY | ~2020-02-18 | XMS | Encounter Summary ---
Demographics + + + | Address | [address] | | | [place] [address] | + + + | Home Phone [...] Team Providers + +------+ + | Care Contracts Administrator Name | Role | Phone | [...] Results | | 2019 | | [facility] | DO [address] | | | | | [facility] [address] | [place] [address] | | | | | [address] [place], | [phone] | | | | | [place] [address] | | | | | | [phone] | | | +--------+ + + + [...] | | | | | [place] [address] | | | | | | [phone] | | | | | | | | | | | | Julia Fisher, | | | | | | PT | | +--------+ + + + + | 02/18/ | Appointment | Rehabilitation | Erika Ernst, | | | 2019 | | | DO [address] | | | | | | [place] [address] | | | | | | [phone] | | | | | | | | | | | | Genesis Ayon OT | | +--------+ + + + + | 02/25/ | Office | Primary Care | Erika Ernst, | | | 2019 | Visit | | DO [address] | | | | | | [place] [address] | | | | | | [phone] | | | | | | | [...] | | | | | | [place] [address] | | | | | | [phone] | | | | | | | | +--------+ + + + + | 02/27/ | Appointment | Radiology | Dhara, | | 2019 | | | [address] | | | | | | 4TH [facility], | | | | | | [place] [address] | | | | | | [phone] | | | | | | | | +--------+ + + + + | 03/04/ | Appointment | Rehabilitation | Genesis Ayon OT | | | 2019 | | | | | +--------+ + + + + | 03/09/ | Office | Orthopedic Surgery | Jeffrey Gandhi, | | | 2019 | Visit | | [address] | | | | | | [place] [address] | | | | | | [phone] | | | | | | | [...] [place] | | | | | | [address] | | | | | | [phone] | | | | | | | [...] | | | | | [place] [address] | | | | | | [phone] | | | | | | | | | | | | Azul Yeboah, | | | | | | [address] | | | | | | [place] | | | | | | [place] [address] | | | | | | [phone] | | | | | | | [...] | | | | | | [address] [place], | | | | | | [place] [address] | | | | | | [phone] | | | | | | | | +--------+ + + + + documented as of this encounter Visit Diagnoses Not on filedocumented in this encounter"
--- OUTSIDE RECORDS SUMMARY | ~2020-02-18 | XMS | Encounter Summary ---
Demographics + + + | Address | [address] | | | [place] [address] | + + + | Home Phone [...] Providers + +------+ + | Care Net Solutions Architect Name | Role | Phone [...] | MEDICAL [facility] [address] | [place] [address] | | | | | [address] [place], | [phone] | | | | | [place] [address] | | | | | | [phone] | | | +--------+ + + + [...] | | | | | [place] [address] | | | | | | [phone] | | | | | | | | | | | | Julia Fisher, | | | | | | PT | | +--------+ + + + + | 02/18/ | Appointment | Rehabilitation | Erika rEnst, | | | 2019 | | | DO [address] | | | | | | [place] [address] | | | | | | [phone] | | | | | | | | | | | | Genesis Ayon OT | | +--------+ + + + + | 02/25/ | Office | Primary Care | Erika Ernst, | | | 2019 | Visit | | DO [address] | | | | | | [place] [address] | | | | | | [phone] | | | | | | | [...] | | | | | [place] [address] | | | | | | [phone] | | | | | | | | +--------+ + + + + | 02/27/ | Appointment | Radiology | Dhara, | | | 2019 | | | [address] | | | | | | 4TH [facility] [place], | | | | | | [place] [address] | | | | | | [phone] | | | | | | | [...] | | | | [place] [address] | | | | | | [phone] | | | | | | | [...] [place] | | | | | | [address] | | | | | | [phone] | | | | | | | [...] | | | | | [place] [address] | | | | | | [phone] | | | | | | | | | | | | Azul Yeboah, | | | | | | MD [address] | | | | | | [place] | | | | | | [place] [address] | | | | | | [phone] | | | | | | | [...] | | | | | | [place] [address] | | | | | | [phone] | | | | | | | | +--------+ + + + + documented as of this encounter Visit Diagnoses Not on filedocumented in this encounter"
--- OUTSIDE RECORDS SUMMARY | ~2020-02-18 | XMS | Encounter Summary ---
Demographics + + + | Address | [address] | | | [place] [address] | + + + | Home Phone [...] Team Providers + +------+ + | Care Capsule Filler Name | Role | Phone | + +------+ + PCP | Unavailable | + +------+ + Encounter Details +--------+ + + + + | Date | Type | Department | Care Team | Description | +--------+ + + + + | 08/21/ | [facility] | Nicanor Mckeon | | | 2016 | Encounter | HOSPITAL NURSERY | MD Caryn [address] | | | | | [address] | [place] | | | | | [place] | [address] | | | | | [address] | [phone] | | | | | [phone] | | | +--------+ + + + [...] | | 2020 | | | DO [address] [place] [address] | | | | | | [place], [place] [address] | | | | | | [phone] | | | | | | | | | | | | Julia Fisher, | | | | | | PT | | +--------+ + + + + | 02/18/ | Appointment | Rehabilitation | Erika Ernst, | | | 2019 | | | DO [address] | | | | | | [place] [address] | | | | | | [phone] | | | | | | | | | | | | Genesis Ayon, SUSAN | | +--------+ + + + + | 02/25/ | Office | Primary Care | Erika Ernst, | | | 2019 | Visit | | DO [address] | | | | | | [place] [address] | | | | | | [phone] | | | | | | | [...] | | | Visit | | [address] [place] | | | | | | [place] [address] | | | | | | [phone] | | | | | | | | +--------+ + + + + | 02/27/ | Appointment | Radiology | Dhara, | | | 2019 | | | [address] | | | | | | [address]TH [place], | | | | | | [place] [address] | | | | | | [phone] | | | | | | | [...] | | | | | [place] [address] | | | | | | [phone] | | | | | | | [...] [place] | | | | | | [address] | | | | | | [phone] | | | | | | | [...] | | | | | [place] [address] | | | | | | [phone] | | | | | | | | | | | | Azul Yeboah, | | | | | | MD [address] | | | | | | [place] | | | | | | [place] [address] | | | | | | [phone] | | | | | | | [...] | | | | | | [place] [address] | | | | | | [phone] | | | | | | | | +--------+ + + + + documented as of this encounter Visit Diagnoses Not on filedocumented in this encounter"
--- OUTSIDE RECORDS SUMMARY | ~2020-02-18 | XMS | Encounter Summary ---
Demographics + + + | Address | [address] | | | [place] [address] | + + + | Home Phone [...] Providers + +------+ + | Care Assembly Worker Name | Role | Phone | [...] | 2018 | | [facility] CHIP UNLOADER | asthma severity, | | | | [facility] | | unspecified whether | | | | [address] [place], | | complicated, | | | | [place] [address] | | unspecified whether | | | | [phone] | | persistent (Primary | | | [...] | | | | | | [place] [address] | | | | | | [phone] | | | | | | | | | | | | Julia Fisher, | | | | | | PT | | +--------+ + + + + | 02/18/ | Appointment | Rehabilitation | Erika Ernst, | | | 2019 | | | DO [address] | | | | | | [place] [address] | | | | | | [phone] | | | | | | | | | | | | Genesis Ayon, OT | | +--------+ + + + + | 02/25/ | Office | Primary Care | Erika Ernst, | | | 2019 | Visit | | DO [address] | | | | | | [place] [address] | | | | | | [phone] | | | | | | | [...] | | | | | [place] [address] | | | | | | [phone] | | | | | | | | +--------+ + + + + | 02/27/ | Appointment | Radiology | Dhara, | | 2019 | | | [address] | | | | | | [address] [place], | | | | | | [place] [address] | | | | | | [phone] | | | | | | | [...] | | | | | [place] [address] | | | | | | [phone] | | | | | | | [...] [place] | | | | | | [address] | | | | | | [phone] | | | | | | | [...] | | | | | [place] [address] | | | | | | [phone] | | | | | | | | | | | | Azul Yeboah, | | | | | | [address] | | | | | | [place] [place] | | | | | | [place] [address] | | | | | | [phone] | | | | | | | [...] | | | | | | [place] [address] | | | | | | [phone] | | | | | | | | +--------+ + + + + documented as of this encounter Visit Diagnoses + + | Diagnosis | + + | Asthma, unspecified asthma severity, unspecified whether complicated, unspecified | | whether persistent - Primary | + + documented in this encounter"
--- OUTSIDE RECORDS SUMMARY | ~2020-02-18 | XMS | Encounter Summary ---
Demographics + + + | Address | [address] | | | [place] [address] | + + + | Home Phone [...] + +------+ + | Care Sheet Metal Assembler And Riveter Name | Role | Phone | + [...] | | | right ankle, | [place] [address] | [place] [address] | | | | | subsequent | Phone: | Phone: | | | | | encounter | [phone] | [phone] | | | | | Procedures | Fax: | Fax: | | | | | PT EVAL | [phone] | [phone] | +--------+ + + + + + [...] [address] | [place] [address] | ankle, subsequent | | | | [place], [place] | [phone] | encounter | | | | [address] | | | | | | [phone] | Julia Fisher, | | | | [...] Last Name Julia Fisher, PT Facility Name [facility] Billing Provider HENNY [id number] Provider Address, [facility] Zip Code [address] [place] [address] Billing Provider PATIENT INFORMATION All sections must be completed Patient Last Name, First Name DALTONFRANKANDREA MARSHALL ABBEY Date of 1990 Mailing Address [address] [place] [address] Coverage Information Payor/Plan Subscriber Name Rel Member # Group # [facility]* ANDREA SUH SIA* [id number] [address] CLINICAL INFORMATION Primary ICD/Diagnosis Code: Encounter Diagnoses [...] Henry PT - 11/21/2019 11:00 AM PST [facility] PT [address] [place] [address] Physical Therapy Initial Assessment Date: 11/21/2019 Patient [...] she's been referred to a clinic in [place] for her left ankle - Previous level [...] E.C.U. Tendon; Surgeon: Inocencio Noriega MD; Location: [facility] SURGERY RIGHT KIDNER PROCEDURE 01/20/2016 Surgeon: Fani Mahajan MD; Location: [facility] TENDON RELEASE THYROID FINE NEEDLE ASPIRATION 09/02/2019 Procedure: US GUIDED THYROID FNA - Location: [facility] ULTRASOUND TONSILLECTOMY WISDOM TOOTH EXTRACTION Family History Problem Relation Age of Onset Other (see comment) Mother gallbladder disease Diabetes Mother Heart disease Mother Hypertension Father Other (see comment) Father arrhymthmia Breast cancer Sister Breast cancer Maternal Grandmother Heart attack Maternal Aunt [place] Hypertension Maternal Uncle Developmental History Allergies Allergen [...] Mobility: RLE Joint Mobility R Talocrural Anterior Marianna: normal R Talocrural Posterior Marianna: normal R Subtalar Medial Marianna: normal R Subtalar Lateral Marianna: normal R Subtalar Anterior/Posterior Marianna: normal R Midtarsal Anterior/Posterior Marianna: normal Special Tests: Ankle Special Tests L [...] Certification To: 02/13/2020 Treatment Plan/Interventions PT EvaluationPT Re-[id number] - Therapeutic Wvrmctwg24135 - Neuromuscular Reeducation9 7116 - Gait Xsqweyyo61810 - Therapeutic Mvkhwujijg24381 - Aquatic Therapy/Nmijkmnjn85869 - U muphrcgfc23534/G0283 - Electrical Stimulation, Loerlnfgdo34412 - Electrical Stimulation, Att dqvbs44725 - TENS Application/Instruction Patient and/or family has [...] | | | | | [place] [address] | | | | | | [phone] | | | | | | | | | | | | Julia Fisher, | | | | | | PT | | +--------+ + + + + | 02/18/ | Appointment | Rehabilitation | Erika Ernst, | | | 2019 | | | DO [address] | | | | | | [place] [address] | | | | | | [phone] | | | | | | | | | | | | Genesis Ayon OT | | +--------+ + + + + | 02/25/ | Office | Primary Care | Erika Ernst, | | | 2019 | Visit | | DO [address] | | | | | | [place] [address] | | | | | | [phone] | | | | | | | [...] | | | | | [place] [address] | | | | | | [phone] | | | | | | | | +--------+ + + + + | 02/27/ | Appointment | Radiology | Dhara, | | | 2019 | | | [address] | | | | | | 4TH [facility], | | | | | | [place] [address] | | | | | | [phone] | | | | | | | | +--------+ + + + + | 03/04/ | Appointment | Rehabilitation | Genesis Ayon OT | | | 2019 | | | | | +--------+ + + + + | 03/09/ | Office | Orthopedic Surgery | Jeffrey Gandhi, | | | 2019 | Visit | | [address] | | | | | | [place] [address] | | | | | | [phone] | | | | | | | [...] [place] | | | | | | [address] | | | | | | [phone] | | | | | | | [...] | | | | | [place] [address] | | | | | | [phone] | | | | | | | | | | | | Azul Yeboah, | | | | | | MD [address] | | | | | | [place] | | | | | | [place] [address] | | | | | | [phone] | | | | | | | [...] | | | | | | [place] [address] | | | | | | [phone] | | | | | | | [...]
--- OUTSIDE RECORDS SUMMARY | ~2020-02-18 | XMS | Encounter Summary ---
Demographics + + + | Address | [address] | | | [place] [address] | + + + | Home Phone [...] Providers + +------+ + | Care Lead Printer Name | Role | Phone | [...] | [facility]ICAL [facility] [address] | [place] [address] | | | | | [address] [place], | [phone] | | | | | [place] [address] | | | | | | [phone] | | | +--------+ + + + [...] | | | | | [place] [address] | | | | | | [phone] | | | | | | | | | | | | Forma, Julia M, | | | | | | PT | | +--------+ + + + + | 02/18/ | Appointment | Rehabilitation | Erika Ernst, | | | 2019 | | | DO [address] | | | | | | [place] [address] | | | | | | [phone] | | | | | | | | | | | | Genesis Ayon OT | | +--------+ + + + + | 02/25/ | Office | Primary Care | Erika Ernst, | | | 2019 | Visit | | DO [address] | | | | | | [place] [address] | | | | | | [phone] | | | | | | | [...] | | | | | [place] [address] | | | | | | [phone] | | | | | | | | +--------+ + + + + | 02/27/ | Appointment | Radiology | Dhara, | | | 2019 | | | [address] | | | | | | 4TH [facility], | | | | | | [place] [address] | | | | | | [phone] | | | | | | | [...] ST | | | | | | [place] [address] | | | | | | [phone] | | | | | | | [...] [place] | | | | | | [address] | | | | | | [phone] | | | | | | | [...] | | | | | [place] [address] | | | | | | [phone] | | | | | | | | | | | | Azul Yeboah, | | | | | | MD [address] | | | | | | [place] | | | | | | [place] [address] | | | | | | [phone] | | | | | | | [...] | | | | | | [place] [address] | | | | | | [phone] | | | | | | | | +--------+ + + + + documented as of this encounter Visit Diagnoses Not on filedocumented in this encounter"
--- OUTSIDE RECORDS SUMMARY | ~2020-02-18 | XMS | Encounter Summary ---
Demographics + + + | Address | [address] | | | [place] [address] | + + + | Home Phone [...] Providers + +------+ + | Care Wheel Setter Name | Role | Phone | [...] | MEDICAL [facility] [address] | [place] [address] | | | | | [address] [place], | [phone] | | | | | [place] [address] | | | | | | [phone] | | | +--------+ + + + [...] | | | | | [place] [address] | | | | | | [phone] | | | | | | | | | | | | Julia Fisher, | | | | | | PT | | +--------+ + + + + | 02/18/ | Appointment | Rehabilitation | Erika Ernst, | | | 2019 | | | DO [address] | | | | | | [place] [address] | | | | | | [phone] | | | | | | | | | | | | Genesis Ayon OT | | +--------+ + + + + | 02/25/ | Office | Primary Care | Erika Ernst, | | | 2019 | Visit | | DO [address] | | | | | | [place] [address] | | | | | | [phone] | | | | | | | [...] | | | | | [place] [address] | | | | | | [phone] | | | | | | | | +--------+ + + + + | 02/27/ | Appointment | Radiology | Dhara, | | | 2019 | | | [address] | | | | | | 4TH [facility], | | | | | | [place] [address] | | | | | | [phone] | | | | | | | [...] [place] | | | | | | [place] [address] | | | | | | [phone] | | | | | | | [...] [place] | | | | | | [address] | | | | | | [phone] | | | | | | | [...] [address] | | | | | | [phone] | | | | | | | | | | | | Azul Yeboah, | | | | | | MD [address] | | | | | | [place] | | | | | | [place] [address] | | | | | | [phone] | | | | | | | [...] | | | | | | [place] [address] | | | | | | [phone] | | | | | | | | +--------+ + + + + documented as of this encounter Visit Diagnoses Not on filedocumented in this encounter"
--- OUTSIDE RECORDS SUMMARY | ~2020-02-18 | XMS | Encounter Summary ---
Demographics + + + | Address | [address] | | | [place] [address] | + + + | Home Phone [...] Team Providers + +------+ + | Care Induction Heating Equipment Setter Name | Role | Phone | [...] persistent | | 2019 | Visit | [facility] | DISTRIBUTION CENTER SUPERVISOR-COMBINATION MACHINE TOOL SETTER [address] | asthma with acute | | | | [facility] [address] | [address] | exacerbation | | | | [address] [place], | [place] [address] | (Primary Dx) | | | | [place] [address] | [phone] | | | | | [phone] | | | +--------+---------+ + + + [...] and as needed inhalers Follow-up with your tree sapper as planned/needed If your symptoms persist or you develop fever, chest pain or shortness of breath follow up immediately for reevaluation. documented in this encounter Progress Notes Alem Guerrero, DISTRIBUTION CENTER SUPERVISOR-COMBINATION MACHINE TOOL SETTER - 07/01/2019 10:30 AM PDTFormatting of this [...] a fever/chills, n/v/d Says she saw her tree sapper last and he took her off the [...] mouth. Once a week Cholecalciferol (VITAMIN D3) 91679 units TABS Take 1 tablet by mouth [...] and as needed inhalers Follow-up with your tree sapper as planned/needed If your symptoms persist or you develop fever, chest pain or shortness of breath follow up immediately for reevaluation. Return if symptoms worsen or fail to improve, for with pcp. Electronically signed by: Alem Guerrero APRN-FN07/01/201913:18 [facility] Note: Part of this report was transcribed using voice recognition software. Every effort wa s made to ensure accuracy. However, inadvertent computerized casket assembler errors may be pre sent. Linh rubin [...] | | | | | [place] [address] | | | | | | [phone] | | | | | | | | | | | | Julia Fisher, | | | | | | PT | | +--------+ + + + + | 02/18/ | Appointment | Rehabilitation | Erika Ernst, | | | 2019 | | | DO [address] | | | | | | [place] [address] | | | | | | [phone] | | | | | | | | | | | | Genesis Ayon OT | | +--------+ + + + + | 02/25/ | Office | Primary Care | Erika Enrst, | | | 2019 | Visit | | [address] [place] [address] | | | | | | [place] [address] | | | | | | [phone] | | | | | | | [...] | | | | | [place] [address] | | | | | | [phone] | | | | | | | | +--------+ + + + + | 02/27/ | Appointment | Radiology | Dhara, | | | 2019 | | | [address] | | | | | | [address] [place], | | | | | | [place] [address] | | | | | | [phone] | | | | | | | | +--------+ + + + + | 03/04/ | Appointment | Rehabilitation | Genesis Ayon OT | | 2019 | | | | | +--------+ + + + + | 03/09/ | Office | Orthopedic Surgery | Jeffrey Gandhi, | | | 2019 | Visit | | [facility] [address] [facility] | | | | | | [place] [address] | | | | | | [phone] | | | | | | | [...] [place] | | | | | | [address] | | | | | | [phone] | | | | | | | [...] | | | | | [place] [address] | | | | | | [phone] | | | | | | | | | | | | Azul Yeboah, | | | | | | [address] | | | | | | [place] | | | | | | [place] [address] | | | | | | [phone] | | | | | | | [...] | | | | | | [place] [address] | | | | | | [phone] | | | | | | | [...]
--- OUTSIDE RECORDS SUMMARY | ~2020-02-18 | XMS | Encounter Summary ---
Demographics + + + | Address | [address] | | | [place] [address] | + + + | Home Phone [...] Team Providers + +------+ + | Care Highballer Name | Role | Phone | + [...] | | | 2018 | Support | [facility] | DO [address] | | | | | MEDICAL [facility] [address] | [place] [address] | | | | | [address] [place], | [phone] | | | | | [place] [address] | | | | | | [phone] | | | +--------+ + + + [...] visit. States she wa s at the [facility] couple days ago for an affected area on her hip. Patient states it has gotten worse,and she thinks it is spreading and it is more painful to the touch and red. She was t old to return if symptoms occurs. I did not see any drainage, some redness noted around the area and warm. Patient advised to return to [facility] so it can be evaluated. Patient states she is on augmentin and was given bactrim also. Patient had another appt elsewhere and would re turn to [facility] when finished. shelleyc documented in this encounter Plan of Treatment +--------+ + + + + | Date | Type | Specialty | Care Team | Description | +--------+ + + + + | 02/18/ | Appointment | Rehabilitation | Erika Ersnt, | | | 2019 | | | DO [address] | | | | | | [place] [address] | | | | | | [phone] | | | | | | | | | | | | Julia Fisher, | | | | | | PT | | +--------+ + + + + | 02/18/ | Appointment | Rehabilitation | Erika Ernst, | | | 2019 | | | DO [address] [place] | | | | | | [place] [address] | | | | | | [phone] | | | | | | | | | | | | Genesis Ayon OT | | +--------+ + + + + | 02/25/ | Office | Primary Care | Erika Ernst, | | | 2019 | Visit | | DO [address] [place] | | | | | | [place] [address] | | | | | | [phone] | | | | | | | | +--------+ + + + + | 02/25/ | Appointment | Rehabilitation | Genesis Ayon OT | | | 2019 | | | | | +--------+ + + + + | 02/26/ | Virtual | Rehabilitation | Usha Rodirguez | | | 2019 | Office | | MD Precious [address] | | | | Visit | | [address] [place] | | | | | | [place] [address] | | | | | | [phone] | | | | | | | | +--------+ + + + + | 02/27/ | Appointment | Radiology | Dhara | | | 2019 | | | [address] | | | | | | [address] [place], | | | | | | [place] [address] | | | | | | [phone] | | | | | | | [...] | | | | | [place] [address] | | | | | | [phone] | | | | | | | [...] [place] | | | | | | [address] | | | | | | [phone] | | | | | | | [...] [address] | | | | | | [phone] | | | | | | | | | | | | Azul Yeboah, | | | | | | MD [address] | | | | | | [place] | | | | | | [place] [address] | | | | | | [phone] | | | | | | | [...] | | | | | | [place] [address] | | | | | | [phone] | | | | | | | | +--------+ + + + + documented as of this encounter Visit Diagnoses Not on filedocumented in this encounter"
--- OUTSIDE RECORDS SUMMARY | ~2020-02-18 | XMS | Encounter Summary ---
Demographics + + + | Address | [address] | | | [place] [address] | + + + | Home Phone [...] Team Providers + +------+ + | Care Habilitation Training Specialist Name | Role | Phone | [...] [facility] | [employer] | | | | | [facility] [address] | | | | | | [address] [facility] [place], | | | | | | [place] [address] | | | | | | [phone] | | | +--------+ + + + [...] | | 2020 | | | DO [address] [place] [address] | | | | | | [place] [address] | | | | | | [phone] | | | | | | | | | | | | Julia Fisher, | | | | | | PT | | +--------+ + + + + | 02/18/ | Appointment | Rehabilitation | Erika Ernst, | | | 2019 | | | DO [address] | | | | | | [place] [address] | | | | | | [phone] | | | | | | | | | | | | Genesis Ayon, SUSAN | | +--------+ + + + + | 02/25/ | Office | Primary Care | Erika Ernst, | | | 2019 | Visit | | DO [address] | | | | | | [place] [address] | | | | | | [phone] | | | | | | | [...] | | | | | [place] [address] | | | | | | [phone] | | | | | | | | +--------+ + + + + | 02/27/ | Appointment | Radiology | Dhara, | | | 2019 | | | [address]WA[address] | | | | | [address] [place], | | | | | | [place] [address] | | | | | | [phone] | | | | | | | [...] | | | | | [place] [address] | | | | | | [phone] | | | | | | | [...] [place] | | | | | | [address] | | | | | | [phone] | | | | | | | [...] [address] | | | | | | [phone] | | | | | | | | | | | | Azul Yeboah, | | | | | | MD [address] | | | | | | [address] [place] | | | | | | [place] [address] | | | | | | [phone] | | | | | | | [...] | | | | | | [place] [address] | | | | | | [phone] | | | | | | | | +--------+ + + + + documented as of this encounter Visit Diagnoses Not on filedocumented in this encounter"
--- OUTSIDE RECORDS SUMMARY | ~2020-02-18 | XMS | Encounter Summary ---
Demographics + + + | Address | [address] | | | [place] [address] | + + + | Home Phone [...] Providers + +------+ + | Care Supervisor Paper Testing Name | Role | Phone | + +------+ + PCP | Unavailable | + +------+ + Encounter Details +--------+ + + + + | Date | Type | Department | Care Team | Description | +--------+ + + + + | 05/19/ [facility] | Amaya Varner NP | | | 2016 | Encounter | [facility] | [address] | | | | | MED[facility] CL[facility] [address] | [place], [place] | | | | | [address] [place], | [address] | | | | | [place] [address] | [phone] | | | | | [phone] | | | +--------+ + + + [...] | | 2020 | | | DO [facility] | | | | | | [place], [place] [address] | | | | | | [phone] | | | | | | | | | | | | Julia Fisher, | | | | | | PT | | +--------+ + + + + | 02/18/ | Appointment | Rehabilitation | Erika Ernst, | | | 2019 | | | DO [address] | | | | | | [place] [address] | | | | | | [phone] | | | | | | | | | | | | Genesis Ayon, SUSAN | | +--------+ + + + + | 02/25/ | Office | Primary Care | Erika Ernst, | | | 2019 | Visit | | DO [address] | | | | | | [place] [address] | | | | | | [phone] | | | | | | | [...] | | | | | [place] [address] | | | | | | [phone] | | | | | | | | +--------+ + + + + | 02/27/ | Appointment | Radiology | Dhara, | | | 2019 | | | [address] | | | | | | 4TH [facility] [place], | | | | | | [place] [address] | | | | | | [phone] | | | | | | | [...] | | | | | [place] [address] | | | | | | [phone] | | | | | | | [...] [place] | | | | | | [address] | | | | | | [phone] | | | | | | | [...] | | | | | [place] [address] | | | | | | [phone] | | | | | | | | | | | | Azul Yeboah, | | | | | | MD [address] | | | | | | [place] [address] [place] | | | | | | [place] [address] | | | | | | [phone] | | | | | | | [...] | | | | | | [place] [address] | | | | | | [phone] | | | | | | | | +--------+ + + + + documented as of this encounter Visit Diagnoses Not on filedocumented in this encounter"
--- OUTSIDE RECORDS SUMMARY | ~2020-02-18 | XMS | Encounter Summary ---
Demographics + + + | Address | [address] | | | [place] [address] | + + + | Home Phone [...] Providers + +------+ + | Care User Support Analyst Name | Role | Phone | [...] | | | [place], [place] | [address] | | | | | [address] | | | | | | [phone] | | | +--------+ + + + [...] | | | | | [place] [address] | | | | | | [phone] | | | | | | | | | | | | Julia Fisher, | | | | | | PT | | +--------+ + + + + | 02/18/ | Appointment | Rehabilitation | Erika Ernst, | | | 2019 | | | DO [address] | | | | | | [place] [address] | | | | | | [phone] | | | | | | | | | | | | Genesis Ayon OT | | +--------+ + + + + | 02/25/ | Office | Primary Care | Erika Ernst, | | | 2019 | Visit | | DO [address] | | | | | | [place] [address] | | | | | | [phone] | | | | | | | [...] | | | | | [place] [address] | | | | | | [phone] | | | | | | | | +--------+ + + + + | 02/27/ | Appointment | Radiology | Dhara, | | | 2019 | | | [address] | | | | | | 4TH [facility], | | | | | | [place] [address] | | | | | | [phone] | | | | | | | [...] [place] | | | | | | [place] [address] | | | | | | [phone] | | | | | | | [...] [place] | | | | | | [address] | | | | | | [phone] | | | | | | | [...] | | | | | [place] [address] | | | | | | [phone] | | | | | | | | | | | | Azul Yeboah, | | | | | | MD [address] | | | | | | [place] | | | | | | [place] [address] | | | | | | [phone] | | | | | | | [...] | | | | | | [place] [address] | | | | | | [phone] | | | | | | | | +--------+ + + + + documented as of this encounter Visit Diagnoses Not on filedocumented in this encounter"
--- OUTSIDE RECORDS SUMMARY | ~2020-02-18 | XMS | Encounter Summary ---
Demographics + + + | Address | [address] | | | [place] [address] | + + + | Home Phone [...] Providers + +------+ + | Care Customer Relations Representative Name | Role | Phone [...] | 2019 | | [facility] | [employer] [facility] [address] | Referral | | | | MEDICAL CLINIC [address] | [place] [address] | | | | | [address] [place], | [phone] | | | | | [place] [address] | | | | | | [phone] | | | +--------+ + + + [...] | | | | | [place] [address] | | | | | | [phone] | | | | | | | | | | | | Julia Fisher, | | | | | | PT | | +--------+ + + + + | 02/18/ | Appointment | Rehabilitation | Erika Ernst, | | | 2019 | | | DO [address] | | | | | | [place] [address] | | | | | | [phone] | | | | | | | | | | | | Genesis Ayon, OT | | +--------+ + + + + | 02/25/ | Office | Primary Care | Erika Ernst, | | | 2019 | Visit | | DO [address] | | | | | | [place] [address] | | | | | | [phone] | | | | | | | [...] | | | | | [place] [address] | | | | | | [phone] | | | | | | | | +--------+ + + + + | 02/27/ | Appointment | Radiology | Dhara, | | | 2019 | | | [address] | | | | | | 4TH [facility], | | | | | | [place] [address] | | | | | | [phone] | | | | | | | | +--------+ + + + + | 03/04/ | Appointment | Rehabilitation | Genesis Ayon OT | | | 2019 | | | | | +--------+ + + + + | 03/09/ | Office | Orthopedic Surgery | Jeffrey Gandhi, | | | 2019 | Visit | | MD [address] [facility] | | | | | | [place] [address] | | | | | | [phone] | | | | | | | [...] [place] | | | | | | [address] | | | | | | [phone] | | | | | | | [...] | | | | | [place] [address] | | | | | | [phone] | | | | | | | | | | | | Azul Yeboah, | | | | | | MD [address] | | | | | | [place] | | | | | | [place] [address] | | | | | | [phone] | | | | | | | [...] | | | | | | [place] [address] | | | | | | [phone] | | | | | | | | +--------+ + + + + documented as of this encounter Visit Diagnoses Not on filedocumented in this encounter"
--- OUTSIDE RECORDS SUMMARY | ~2020-02-18 | XMS | Encounter Summary ---
Demographics + + + | Address | [address] | | | [place] [address] | + + + | Home Phone [...] Providers + +------+ + | Care Night Order Selector Name | Role | Phone | + [...] | | | of left | [place] [address] | [place] [address] | | | | | ankle, | Phone: | Phone: | | | | | initial | [phone] | [phone] | | | | | encounter | Fax: | Fax: | | | | | Procedures | [phone] | [phone] | | | | | PT EVAL [...] [address] | [place] [address] | ligament of left | | | | [place], [place] | [phone] | ankle, initial | | | | [address] | | encounter | | | | [phone] | Nick Barrios I, PT | | [...] be different hannah tan the original. [facility] THERAPY PT [address] [place] [address] Physical Therapy Daily Treatment Note Date: 07/12/2018 [...] | | | | | [place] [address] | | | | | | [phone] | | | | | | | | | | | | Julia Fisher, | | | | | | PT | | +--------+ + + + + | 02/18/ | Appointment | Rehabilitation | Erika Ernst, | | | 2019 | | | DO [address] | | | | | | [place] [address] | | | | | | [phone] | | | | | | | | | | | | Genesis Ayon, OT | | +--------+ + + + + | 02/25/ | Office | Primary Care | Erika Ernst, | | | 2019 | Visit | | DO [address] | | | | | | [place] [address] | | | | | | [phone] | | | | | | | [...] | | | | | [place] [address] | | | | | | [phone] | | | | | | | | +--------+ + + + + | 02/27/ | Appointment | Radiology | Dhara, | | | 2019 | | | [address] | | | | | | 4TH [facility], | | | | | | [place] [address] | | | | | | [phone] | | | | | | | [...] | | | | | [place] [address] | | | | | | [phone] | | | | | | | [...] [place] | | | | | | [address] | | | | | | [phone] | | | | | | | [...] [address] | | | | | | [phone] | | | | | | | | | | | | Azul Yeboah, | | | | | | MD [address] | | | | | | [place] | | | | | | [place] [address] | | | | | | [phone] | | | | | | | [...] | | | | | | [place] [address] | | | | | | [phone] | | | | | | | | +--------+ + + + + documented as of this encounter Visit Diagnoses + + | Diagnosis | + + | Sprain of calcaneofibular ligament of left ankle, initial encounter | + + documented in this encounter"
--- OUTSIDE RECORDS SUMMARY | ~2020-02-18 | XMS | Encounter Summary ---
Demographics + + + | Address | [address] | | | [place] [address] | + + + | Home Phone [...] Providers + +------+ + | Care Supervisor Firearms Name | Role | Phone | + [...] | syndrome | [place] | [address] | | | | | Procedures | [place], [place] | Phone: | | | | | MRI Brain w | [address] | [phone] | | | | | wo Contrast | Phone: | Fax: | | | | | | [phone] | [phone] | | | | | | Fax: | | | | | | | [phone] | | +--------+--------+ + + + + [...] | | | | | | [place] [address] | [place], [place] | | | | | | Phone: | [address] Phone: | | | | | | [phone] | [phone] | | | | | | Fax: | Fax: | | | | | | [phone] | [phone] | +--------+ + + + + + [...] | | | DR [place], | [address] | | | | | [place] [address] | | | | | | [phone] | | | +--------+---------+ + + + [...] be different from the original. Patient Instructions [facility] Neurology Clinic Dr. Luis Nichole, Neurologist [...] le, and scrabble, other puzzle games like SudScil Proteinsu, Mahjong. Play computer/mobile applications such as EvoApp and MIND GAMES Advised to wrist things down such as task to perform and conversation Any Questions please call BAKARI Terrell or Dr. Nichole at [facility] Neurology Clinic Coping with Concussion Concussion [...] bath or taking a hot shower. Take xzrm-kfn-ayphnin acetaminophen to relieve headache pain. Take them [...] treatment y ou need. Date Last Reviewed: 10/02/201719994234-1333 [employer] [address] [place] [address], [place] [address]. All righ ts reserved. This information is [...] with dizziness or fainting. Date Last Reviewed: 08/02/201619992345-4037 [employer]. [address] [place] [address]. All rig ts reserved. This information is [...] may faint. Date Last Reviewed: 01/30/2018 [employer] [address] [place] [address]. All righ ts reserved. This information is not intended as a substitute for professional medical care. Always follow your healthcare professional's instructions. documented in this encounter Progress Notes Luis Nichole MD - 01/30/2019 11:15 AM PDT Patient: Andrea Suh Medical Record: [id number] Date of Services: 01/30/2019 Referring Doctor: Erika [...] t siria recurrent, with patient usually receiving wpdi-fce-elykwln medications. The headaches are associated with occasional [...] Maternal Grandmother Heart attack Maternal Aunt PA Review of Systems: Denies earache, nasal catarrh, [...] mouth. Once a week Cholecalciferol (VITAMIN D3) 05587 units TABS Take 1 tablet by mouth [...] and oriented to time, place, and person. [facility] is fluent. Attention, comprehension, and general fund [...] CEREBELLAR EXAMINATION: There is no dysmetria on hiencx-de-bpex test. MISCELLANEOUS EXAM: Atraumatic, no evidence of [...] pain, surgeries, x 2 Plan: Patient Instructions [facility] Neurology Clinic Dr. Luis Nichole, Neurologist [...] le, and scrabble, other puzzle games like Repliseu, Mahjong. Play computer/mobile applications such as EvoApp and [employer]AMES Advised to wrist things down such as task to perform and conversation Any Questions please call BAKARI Terrell or Dr. Nichole at [facility] Neurology Clinic Coping with Concussion Concussion [...] bath or taking a hot shower. Take lpvd-hwp-srbomvb acetaminophen to relieve headache pain. Take them [...] treatment y ou need. Date Last Reviewed: 10/02/201719997277-1302 [employer] [address] [place] [address]. All righ ts reserved. This information is [...] or fainting. Date Last Reviewed: 08/02/2016 [employer] [address] [place] [address]. All rig ts reserved. This information is [...] vessels, you may faint. Date Last Reviewed: 01/30/201819998090-6382 [employer] [address] [place] [address]. All righ ts reserved. This information is not intended as a substitute for professional medical care. Always follow your healthcare professional's instructions. Luis Nichole MD01/30/201911:34 Electronically signed NOTE: Part of this report was transcribed using voice recognition software. Every effort was made to ensure accuracy. However, inadvertent computerize accounting bookkeeper errors may be present documented in this encounter Plan of Treatment +--------+ + + + + | Date | Type | Specialty | Care Team | Description | +--------+ + + + + | 02/18/ | Appointment | Rehabilitation | Erika Ernst, | | | 2019 | | | DO [address] | | | | | | [place] [address] | | | | | | [phone] | | | | | | | | | | | | Julia Fisher, | | | | | | PT | | +--------+ + + + + | 02/18/ | Appointment | Rehabilitation | Erika Ernst, | | | 2019 | | | DO [address] | | | | | | [place] [address] | | | | | | [phone] | | | | | | | | | | | | Genesis Ayon OT | | +--------+ + + + + | 02/25/ | Office | Primary Care | Erika Ernst, | | | 2019 | Visit | | DO [address] | | | | | | [place] [address] | | | | | | [phone] | | | | | | | [...] | | | | | [place] [address] | | | | | | [phone] | | | | | | | | +--------+ + + + + | 02/27/ | Appointment | Radiology | Dhara, | | | 2019 | | | [address] | | | | | [address] [place], | | | | | | [place] [address] | | | | | | [phone] | | | | | | | | +--------+ + + + + | 03/04/ | Appointment | Rehabilitation | Genesis Ayon OT | | | 2019 | | | | | +--------+ + + + + | 03/09/ | Office | Orthopedic Surgery | Jeffrey Gandhi, | | | 2019 | Visit | | [place] [address] [facility] | | | | | | [place] [address] | | | | | | [phone] | | | | | | | [...] [place] | | | | | | [address] | | | | | | [phone] | | | | | | | [...] | | | | | [place] [address] | | | | | | [phone] | | | | | | | | | | | | Azul Yeboah, | | | | | | MD [address] | | | | | | [place] | | | | | | [place] [address] | | | | | | [phone] | | | | | | | [...] | | | | | | [place] [address] | | | | | | [phone] | | | | | | | [...]
--- OUTSIDE RECORDS SUMMARY | ~2020-02-18 | XMS | Encounter Summary ---
Demographics + + + | Address | [address] | | | [place] [address] | + + + | Home Phone [...] Providers + +------+ + | Care Train Attendant Name | Role | Phone | [...] | | [facility] [address] | [place] [address] | | | | [address] [place], | [phone] | | | | | [place] [address] | | | | | | [phone] | | | +--------+ + + + [...] | | | | | [place] [address] | | | | | | [phone] | | | | | | | | | | | | Julia Fisher, | | | | | | PT | | +--------+ + + + + | 02/18/ | Appointment | Rehabilitation | Erika Ernst, | | | 2019 | | | DO [address] | | | | | | [place] [address] | | | | | | [phone] | | | | | | | | | | | | Genesis Ayon, OT | | +--------+ + + + + | 02/25/ | Office | Primary Care | Erika Ernst, | | | 2019 | Visit | | DO [address] | | | | | | [place] [address] | | | | | | [phone] | | | | | | | [...] | | | | | [place] [address] | | | | | | [phone] | | | | | | | | +--------+ + + + + | 02/27/ | Appointment | Radiology | Dhara, | | | 2019 | | | [address] | | | | | | 4TH [facility], | | | | | | [place] [address] | | | | | | [phone] | | | | | | | | +--------+ + + + + | 03/04/ | Appointment | Rehabilitation | Genesis Ayon OT | | | 2019 | | | | | +--------+ + + + + | 03/09/ | Office | Orthopedic Surgery | Jeffrey Gandhi, | | | 2019 | Visit | | [address] | | | | | | [place] [address] | | | | | | [phone] | | | | | | | [...] [place] | | | | | | [address] | | | | | | [phone] | | | | | | | [...] | | | | | [place] [address] | | | | | | [phone] | | | | | | | | | | | | Azul Yeboah, | | | | | | MD [address] | | | | | | [place] | | | | | | [place] [address] | | | | | | [phone] | | | | | | | [...] | | | | | | [place] [address] | | | | | | [phone] | | | | | | | | +--------+ + + + + documented as of this encounter Visit Diagnoses Not on filedocumented in this encounter"
--- OUTSIDE RECORDS SUMMARY | ~2020-02-18 | XMS | Encounter Summary ---
Demographics + + + | Address | [address] | | | [place] [address] | + + + | Home Phone [...] | [facility] | | | and [...] Providers + +------+ + | Care Communication Skills Instructor Name | Role | Phone | + +------+ + | Erika Ernst DO | PCP | | + +------+ + Encounter Details +--------+ + + + + | Date | Type | Department | Care Team | Description | +--------+ + + + + | 12/02/ | Orders Only | [place] [facility] | Erika Ernst, | Iron deficiency | | 2020 | | [facility] | DO [address] | (Primary Dx) | | | | MEDICAL CLIN[facility] [address] | [place] [address] | | | | | [address] [place], | [phone] | | | | | [place] [address] | | | | | | [phone] | | | +--------+ + + + [...] | | | | | [place] [address] | | | | | | [phone] | | | | | | | | | | | | Julia Fisher, | | | | | | PT | | +--------+ + + + + | 02/18/ | Appointment | Rehabilitation | Erika Ernst, | | | 2019 | | | DO [address] | | | | | | [place] [address] | | | | | | [phone] | | | | | | | | | | | | Genesis Ayon OT | | +--------+ + + + + | 02/25/ | Office | Primary Care | Erika Ernst, | | | 2019 | Visit | | DO [address] | | | | | | [place] [address] | | | | | | [phone] | | | | | | | [...] | | | | | [place] [address] | | | | | | [phone] | | | | | | | | +--------+ + + + + | 02/27/ | Appointment | Radiology | Dhara, | | | 2019 | | | [address] | | | | | | [address] [facility], | | | | | | [place] [address] | | | | | | [phone] | | | | | | | [...] | | | | | [place] [address] | | | | | | [phone] | | | | | | | [...] [place] | | | | | | [address] | | | | | | [phone] | | | | | | | [...] | | | | | [place] [address] | | | | | | [phone] | | | | | | | | | | | | Azul Yeboah, | | | | | | MD [address] | | | | | | [place] | | | | | | [place] [address] | | | | | | [phone] | | | | | | | [...] | | | | | | [place] [address] | | | | | | [phone] | | | | | | | | +--------+ + + + + documented as of this encounter Results Iron and Iron Binding Capacity (12/24/2019 1:51 PM PDT) + +-------+ + + + | Component | Value | Ref Range | Performed | Pathologist | | | | | At | Signature | + +-------+ + + + | Iron | 60 | 50 - 170 ug/dL | [place] [...] + + | [place] [facility] | [address] | [place] | [phone] | | [facility] | | [address] | | + + + + + [...] + + | [place] [facility] | [address] | [place] | [phone] | | [facility] | | [address] | | + + + + + documented in this encounter Visit Diagnoses + + | Diagnosis | + + | Iron deficiency - Primary Other disorders of iron metabolism | + + documented in this encounter"
--- OUTSIDE RECORDS SUMMARY | ~2020-02-18 | XMS | Encounter Summary ---
Demographics + + + | Address | [address] | | | [place] [address] | + + + | Home Phone [...] Team Providers + +------+ + | Care Stranding Machine Operator Helper Name | Role | [...] Medication Refill | | 2019 | | [facility] | DO [address] | | | | | [facility] [address] | [address] [place] | | | | | [address] [place], | [place] [address] | | | | | [place] [address] | [phone] | | | | | [phone] | | | +--------+--------+ + + + [...] | | | | | [place] [address] | | | | | | [phone] | | | | | | | | | | | | Julia Fisher, | | | | | | PT | | +--------+ + + + + | 02/18/ | Appointment | Rehabilitation | Erika Ernst, | | | 2019 | | | DO [address] | | | | | | [place] [address] | | | | | | [phone] | | | | | | | | | | | | Genesis Ayon OT | | +--------+ + + + + | 02/25/ | Office | Primary Care | Erika Ernst, | | | 2019 | Visit | | DO [address] | | | | | | [place] [address] | | | | | | [phone] | | | | | | | [...] | | | | | [place] [id number] | | | | | | [phone] | | | | | | | | +--------+ + + + + | 02/27/ | Appointment | Radiology | Dhara, | | | 2019 | | | [address] | | | | | | 4TH [facility], | | | | | | [place] [address] | | | | | | [phone] | | | | | | | [...] [place] | | | | | | [place] [address] | | | | | | [phone] | | | | | | | [...] [place] | | | | | | [address] | | | | | | [phone] | | | | | | | [...] | | | | | [place] [address] | | | | | | [phone] | | | | | | | | | | | | Azul Yeboah, | | | | | | MD [address] | | | | | | [place] | | | | | | [place] [address] | | | | | | [phone] | | | | | | | [...] | | | | | | [place] [address] | | | | | | [phone] | | | | | | | | +--------+ + + + + documented as of this encounter Visit Diagnoses Not on filedocumented in this encounter"
--- OUTSIDE RECORDS SUMMARY | ~2020-02-18 | XMS | Encounter Summary ---
Demographics + + + | Address | [address] | | | [place] [address] | + + + | Home Phone [...] Team Providers + +------+ + | Care Bait Man Name | Role | Phone | + +------+ + PCP | Unavailable | + +------+ + Encounter Details +--------+ + + + + | Date | Type | Department | Care Team | Description | +--------+ + + + + | 04/08/ | Hospital | [facility] | Camille Bush | | | 2017 | Encounter | [facility] | [address] | | | | | [facility] [address] | [address] [facility], | | | | | 4TH [facility], | [place] [address] | | | | | [place] [address] | [phone] | | | | | [phone] | | | +--------+ + + + [...] | | | | | [place] [address] | | | | | | [phone] | | | | | | | [...] [address] | | | | | | [phone] | | | | | | | | | | | | Genesis Ayon, OT | | +--------+ + + + + | 02/25/ | Office | Primary Care | Erika Ernst, | | | 2019 | Visit | | DO [address] | | | | | | [place] [address] | | | | | | [phone] | | | | | | | [...] | | | | | [place] [address] | | | | | | [phone] | | | | | | | | +--------+ + + + + | 02/27/ | Appointment | Radiology | Dhara, | | | 2019 | | | [address] | | | | | | [address] [place], | | | | | | [place] [address] | | | | | | [phone] | | | | | | | [...] ST | | | | | | [place] [address] | | | | | | [phone] | | | | | | | [...] [place] | | | | | | [address] | | | | | | [phone] | | | | | | | [...] | | | | | [place] [address] | | | | | | [phone] | | | | | | | | | | | | Azul Yeboah, | | | | | | MD [address] | | | | | | [address] [place] | | | | | | [place] [address] | | | | | | [phone] | | | | | | | [...] | | | | | | [place] [address] | | | | | | [phone] | | | | | | | | +--------+ + + + + documented as of this encounter Visit Diagnoses Not on filedocumented in this encounter"
--- OUTSIDE RECORDS SUMMARY | ~2020-02-18 | XMS | Encounter Summary ---
Demographics + + + | Address | [address] | | | [place] [address] | + + + | Home Phone [...] + +------+ + | Care Director Of Religious Activities Name | Role | Phone | + [...] | | | | disorder) | [place] [address] | [place] | | | | | Chronic | Phone: | 1100 | | | | | midline low | [phone] | [facility] | | | | | back pain | Fax: | 15 | | | | | without | [phone] | [place], [place] | | | | | sciatica | | [address] | | | | | Left hip | | Phone: | | | | | pain | | [phone] | | | | | | | Fax: | | | | | | | [phone] | +--------+ + + + + + [...] | [facility] | [place] [address] | (Primary Dx); TMJ | | | | [address] [place], | [phone] | (temporomandibular | | | | [place] [address] | | joint disorder); | | | | [phone] | | Chronic midline low | | [...] ( she wants to do this in [place]) referral for TMJ and left hip and [...] | | | | | [place] [address] | | | | | | [phone] | | | | | | | | | | | | Julia Fisher, | | | | | | PT | | +--------+ + + + + | 02/18/ | Appointment | Rehabilitation | Erika Ernst, | | | 2019 | | | DO [address] [place] | | | | | | [place] [address] | | | | | | [phone] | | | | | | | | | | | | Genesis Ayon OT | | +--------+ + + + + | 02/25/ | Office | Primary Care | Erika Ernst, | | | 2019 | Visit | | DO [address] | | | | | | [place] [address] | | | | | | [phone] | | | | | | | [...] | | | | | [place] [address] | | | | | | [phone] | | | | | | | | +--------+ + + + + | 02/27/ | Appointment | Radiology | Dhara, | | | 2019 | | | [address]WA[address] Ross [address] | | | | | | [address] [place], | | | | | | [place] [address] | | | | | | [phone] | | | | | | | [...] ST | | | | | | [place] [address] | | | | | | [phone] | | | | | | | [...] [place] | | | | | | [address] | | | | | | [phone] | | | | | | | [...] | | | | | [place] [address] | | | | | | [phone] | | | | | | | | | | | | Azul Yeboah, | | | | | | MD [address] | | | | | | [place] | | | | | | [place] [address] | | | | | | [phone] | | | | | | | [...] | | | | | | [place] [address] | | | | | | [phone] | | | | | | | [...] the medial foot. Age appropriate bone mineral mixer al density. | | | |IMPRESSION: | [...] [place] [facility] | [address] | [place], [place] | [phone] | | [facility] | | [address] | | | [facility] | [...] | [facility] | | | | mg/dL [id number] - | | HOSPITAL | | | | 129 mg/dL Near | | [facility] | | | | [id number] - 159 mg/dL | | MEDICAL | | | | [id number] - 189 | | CENTER LAB | [...] + + | [place] [facility] | [address] | [place], [place] | [phone] | | [facility] | | [address] | | | [facility] | [...] | mL/min/1.73m2 | [facility] | | | [facility] | RATE,ESTIMATED | | HOSPITAL | | | | mL/min/1.49p6Mguk than | | REG[facility]AL | | | [...] + + | [place] [facility] | [address] | [place], [place] | [phone] | | [facility] | | [address] | | | [facility] | [...]
--- OUTSIDE RECORDS SUMMARY | ~2020-02-18 | XMS | Encounter Summary ---
Demographics + + + | Address | [address] | | | [place] [address] | + + + | Home Phone [...] Team Providers + +------+ + | Care Luggage Liner Name | Role | Phone | [...] | | | | Spotting | [place] [address] | [place] | | | | | between | Phone: | [address] | | | | | menses | [phone] | Phone: | | | | | | Fax: | [phone] | | | | | | [phone] | Fax: | | | | | | | [phone] | +--------+ + + + + + [...] | [facility] [address] | [place] [address] | (Primary Dx); Heart | | | | [address] [place], | [phone] | palpitations; | | | | [place] [address] | | Anxiety; Painful | | | | [phone] | | menstrual periods; | | | [...] would like a second opinion referral to [facility] [employer] for her menstrual issues, painful with mid cycle break through. She has been seeing [facility] in [facility] and she wants to put in a IUD and pt does not agree with this plan. Will do referral to our [facility] Women's clinic. She just finis hed [...] 4. Painful menstrual periods * [place] [facility] OB-DR[facility]TER (CAD) ELECTRICAL - AMB Referral 5. Spotting between menses * [place] [facility] OB-DRAFTER (CAD) ELECTRICAL - AMB Referral 6. Natalia vaginitis Plan: She will continue to monitor HTN and HR at home. 48 hour Holter monitor ordered. Increase B uspar to 30 mg BID . Referral to [facility] Women's clinic Diflucan daily x 3 [...] [address] | | | | | | [phone] | | | | | | | | | | | | Julia Fisher, | | | | | | PT | | +--------+ + + + + | 02/18/ | Appointment | Rehabilitation | Erika Ernst, | | | 2019 | | | DO [address] | | | | | | [place] [address] | | | | | | [phone] | | | | | | | | | | | | Genesis Ayon OT | | +--------+ + + + + | 02/25/ | Office | Primary Care | Erika Ernst, | | | 2019 | Visit | | DO [address] | | | | | | [place] [address] | | | | | | [phone] | | | | | | | [...] | | | | | [place] [address] | | | | | | [phone] | | | | | | | | +--------+ + + + + | 02/27/ | Appointment | Radiology | Dhara, | | | 2019 | | | DWAINE Ross [address] | | | | | | [address] [place], | | | | | | [place] [address] | | | | | | [phone] | | | | | | | | +--------+ + + + + | 03/04/ | Appointment | Rehabilitation | Genesis Ayon OT | | | 2019 | | | | | +--------+ + + + + | 03/09/ | Office | Orthopedic Surgery | Jeffrey Gandhi, | | | 2019 | Visit | | [place] [address] | | | | | | [place] [address] | | | | | | [phone] | | | | | | | [...] [place] | | | | | | [address] | | | | | | [phone] | | | | | | | [...] | | | | | [place] [address] | | | | | | [phone] | | | | | | | | | | | | Azul Yeboah, | | | | | | MD [address] | | | | | | [place] | | | | | | [place] [address] | | | | | | [phone] | | | | | | | [...] | | | | | | [place] [address] | | | | | | [phone] | | | | | | | | +--------+ + + + + + + +--------+ + + | Name | Type | Priori | Associated Diagnoses | Order Schedule | | | | ty | | | + + +--------+ + + | * [place] [facility] | Outpatient | Routin | Painful menstrual | Ordered: 12/13/2018 | | [facility] OB-DRAFTER (CAD) ELECTRICAL - AMB | Referral | e | [...]
--- OUTSIDE RECORDS SUMMARY | ~2020-02-18 | XMS | Encounter Summary ---
Demographics + + + | Address | [address] | | | [place] [address] | + + + | Home Phone [...] Team Providers + +------+ + | Care Red Lead Burner Name | Role | Phone | [...] | | | of left | [place] [address] | [place], [place] | | | | | ankle, | Phone: | [phone] | | | | | initial | [phone] | Phone: | | | | | encounter | Fax: | [phone] | | | | | Procedures | [phone] | Fax: | | | | | [place] | | [phone] | +--------+ + + + + + [...] | [place], [place] | [place] [address] | Dx); Sprain of left | | | | [address] | [phone] | ankle, unspecified | | | | [phone] | | ligament, initial | | | [...] Age: 28 y.o. | : 1990 | [address] | Author: ABHI GRIMES DO | Date of Encounter: 06/19/2018 Chief complaint Chief Complaint Patient presents with Ankle Injury Left DOI: 05/31/18 Date of injury History of Present Illness Andrea Suh is a 28 y.o. female referral from her PCP regarding a sprained ankle. This is a workman's comp case. She states approximately 3 weeks ago she [place] when she slipped on some twigs [...] PM 90 tablet 5 Cholecalciferol (VITAMIN D3) 72609 units TABS Take 1 tablet by mouth [...] and their vital signs recorded by my perinatal breastfeeding assistant today, a s found in this chart note. Electronically signed by: Abhi Grimes DO 06/19/2018 at 15:43 Note: Part of this report was transcribed using voice recognition software. Every effort wa s made to ensure accuracy. However, inadvertent computerized community program assistant errors may be pre sent. CC: Erika [...] | | | | | [place] [address] | | | | | | [phone] | | | | | | | | | | | | Julia Fisher, | | | | | | PT | | +--------+ + + + + | 02/18/ | Appointment | Rehabilitation | Erika Ernst, | | | 2019 | | | DO [address] | | | | | | [place] [address] | | | | | | [phone] | | | | | | | | | | | | Genesis Ayon OT | | +--------+ + + + + | 02/25/ | Office | Primary Care | Erika Ernst, | | | 2019 | Visit | | DO [address] | | | | | | [place] [address] | | | | | | [phone] | | | | | | | [...] | | | | | [place] [address] | | | | | | [phone] | | | | | | | | +--------+ + + + + | 02/27/ | Appointment | Radiology | Dhara, | | | 2019 | | | [address] | | | | | | 4TH [facility], | | | | | | [place] [address] | | | | | | [phone] | | | | | | | [...] | | | | | [place] [address] | | | | | | [phone] | | | | | | | [...] [place] | | | | | | [address] | | | | | | [phone] | | | | | | | [...] | | | | | [place] [address] | | | | | | [phone] | | | | | | | | | | | | Azul Yeboah, | | | | | | MD [address] | | | | | | [place] | | | | | | [place] [address] | | | | | | [phone] | | | | | | | [...] | | | | | | [place] [address] | | | | | | [phone] | | | | | | | [...]
--- OUTSIDE RECORDS SUMMARY | ~2020-02-18 | XMS | Encounter Summary ---
Demographics + + + | Address | [address] | | | [place] [address] | + + + | Home Phone [...] Providers + +------+ + | Care Cylinder Press Operator Apprentice Name | Role | Phone | [...] Description | +--------+--------+ + + + | 10/21/ | Refill | [place] [facility] | Erika Ernst, | Medication Refill | | 2019 | | [facility] | DO [address] | | | | | [facility]ICAL [facility] [address] | [place] [address] | | | | | [address] [place], | [phone] | | | | | [place] [address] | | | | | | [phone] | | | +--------+--------+ + + + [...] | | | | | [place] [address] | | | | | | [phone] | | | | | | | | | | | | Julia Fisher, | | | | | | PT | | +--------+ + + + + | 02/18/ | Appointment | Rehabilitation | Erika Ernst, | | | 2019 | | | DO [address] [place] | | | | | | [place] [address] | | | | | | [phone] | | | | | | | | | | | | Genesis Ayon OT | | +--------+ + + + + | 02/25/ | Office | Primary Care | Erika Ernst, | | | 2019 | Visit | | DO [address] [place] | | | | | | [place] [address] | | | | | | [phone] | | | | | | | [...] | | | | | [place] [address] | | | | | | [phone] | | | | | | | | +--------+ + + + + | 02/27/ | Appointment | Radiology | Dhara, | | | 2019 | | | [address] | | | | | | 4TH [facility], | | | | | | [place] [address] | | | | | | [phone] | | | | | | | [...] [place] | | | | | | [place] [address] | | | | | | [phone] | | | | | | | [...] [place] | | | | | | [address] | | | | | | [phone] | | | | | | | [...] | | | | | [place] [address] | | | | | | [phone] | | | | | | | | | | | | Azul Yeboah, | | | | | | MD [address] | | | | | | [place] | | | | | | [place] [address] | | | | | | [phone] | | | | | | | [...] | | | | | | [place] [address] | | | | | | [phone] | | | | | | | | +--------+ + + + + documented as of this encounter Visit Diagnoses Not on filedocumented in this encounter"
--- OUTSIDE RECORDS SUMMARY | ~2020-02-18 | XMS | Encounter Summary ---
Demographics + + + | Address | [address] | | | [place] [address] | + + + | Home Phone [...] Team Providers + +------+ + | Care Tailer In Name | Role | Phone | [...] | | | [place] TRE[place] | [place] [address] | [place] [address] | | | | | | Phone: | Phone: | | | | | | [phone] | [phone] | | | | | | Fax: | Fax: | | | | | | [phone] | [phone] | +--------+--------+ + + + + Encounter [...] [address] | [place] [address] | History of falling; | | | | [place], [place] | [phone] | Sprain of | | | | [address] | | calcaneofibular | | | | [phone] | Julia Fisher, | ligament of left [...] | 11/26/19 | | | (VITAMIN D3) 60250 | mouth Once a week | tablet [...] Fisher PT - 01/23/2019 9:19 AM PDT [facility] PT [address] [place] [address] Physical Therapy Progress Assessment Date: 01/23/2019 Patient [...] Seated marching 1minx2. LAQ Ongoing: Wall sits [id number] holds, Bridging 3 x 10 reps, Side [...] | | | | | [place] [address] | | | | | | [phone] | | | | | | | [...] [address] | | | | | | [phone] | | | | | | | | | | | | Genesis Ayon OT | | +--------+ + + + + | 02/25/ | Office | Primary Care | Erika Ernst, | | | 2019 | Visit | | DO [address] [place] [address] | | | | | | [place] [address] | | | | | | [phone] | | | | | | | [...] | | | | | [place] [address] | | | | | | [phone] | | | | | | | | +--------+ + + + + | 02/27/ | Appointment | Radiology | Dhara, | | | 2019 | | | DWAINE Ross [address] | | | | | | [address] [place], | | | | | | [place] [address] | | | | | | [phone] | | | | | | | [...] | | | | | | [place] [address] | | | | | | [phone] | | | | | | | [...] [place] | | | | | | [address] | | | | | | [phone] | | | | | | | [...] | | | | | [place] [address] | | | | | | [phone] | | | | | | | | | | | | Azul Yeboah, | | | | | | [address] | | | | | | [place] | | | | | | [place] [address] | | | | | | [phone] | | | | | | | [...] | | | | | | [place] [address] | | | | | | [phone] | | | | | | | [...]
--- OUTSIDE RECORDS SUMMARY | ~2020-02-18 | XMS | Encounter Summary ---
Demographics + + + | Address | [address] | | | [place] [address] | + + + | Home Phone [...] Team Providers + +------+ + | Care Fast Food Cashier Name | Role | Phone | + +------+ + PCP | Unavailable | + +------+ + Encounter Details +--------+ + + + + | Date | Type | Department | Care Team | Description | +--------+ + + + + | 04/21/ | [facility] | [facility] | Travis Malone FNP | | | 2014 | Encounter | [facility] | [address] | | | | | MEDICAL CL[facility] [address] | [place] | | | | | [facility], | [address] | | | | | [place] [address] | [phone] | | | | | [phone] | | | +--------+ + + + [...] | | | | | [place] [address] | | | | | | [phone] | | | | | | | | | | | | Julia Fisher, | | | | | | PT | | +--------+ + + + + | 02/18/ | Appointment | Rehabilitation | Erika Ernst, | | | 2019 | | | DO [address] [place] | | | | | | [place] [address] | | | | | | [phone] | | | | | | | | | | | | Genesis Ayon, OT | | +--------+ + + + + | 02/25/ | Office | Primary Care | Erika Ernst, | | | 2019 | Visit | | DO [address] | | | | | | [place] [address] | | | | | | [phone] | | | | | | | [...] | | | | | [place] [address] | | | | | | [phone] | | | | | | | | +--------+ + + + + | 02/27/ | Appointment | Radiology | Dhara, | | | 2019 | | | [address] | | | | | | 4TH [facility], | | | | | | [place] [address] | | | | | | [phone] | | | | | | | | +--------+ + + + + | 03/04/ | Appointment | Rehabilitation | Genesis Ayon OT | | | 2019 | | | | | +--------+ + + + + | 03/09/ | Office | Orthopedic Surgery | Jeffrey Gandhi, | | | 2019 | Visit | | [address] | | | | | | [place] [address] | | | | | | [phone] | | | | | | | [...] [place] | | | | | | [address] | | | | | | [phone] | | | | | | | [...] | | | | | [place] [address] | | | | | | [phone] | | | | | | | | | | | | Azul Yeboah, | | | | | | MD [address] | | | | | | [place] | | | | | | [place] [address] | | | | | | [phone] | | | | | | | [...] | | | | | | [place] [address] | | | | | | [phone] | | | | | | | | +--------+ + + + + documented as of this encounter Visit Diagnoses Not on filedocumented in this encounter"
--- OUTSIDE RECORDS SUMMARY | ~2020-02-18 | XMS | Encounter Summary ---
Demographics + + + | Address | [address] | | | [place] [address] | + + + | Home Phone [...] Team Providers + +------+ + | Care Cobol Application Developer Name | Role | Phone [...] | | | [facility]ICAL [facility] [address] | Cage/Vault Supervisor-Clinical | | | | | [address] [facility] [place], | | | | | | [place] [address] | | | | | | [phone] | | | +--------+ + + + [...] | | | | | [place] [address] | | | | | | [phone] | | | | | | | | | | | | Julia Fisher, | | | | | | PT | | +--------+ + + + + | 02/18/ | Appointment | Rehabilitation | Erika Ernst, | | | 2019 | | | DO [address] [place] | | | | | | [place] [address] | | | | | | [phone] | | | | | | | | | | | | Genesis Ayon OT | | +--------+ + + + + | 02/25/ | Office | Primary Care | Erika Ernst, | | | 2019 | Visit | | DO [address] [place] | | | | | | [place] [address] | | | | | | [phone] | | | | | | | [...] | | | | | [place] [address] | | | | | | [phone] | | | | | | | | +--------+ + + + + | 02/27/ | Appointment | Radiology | Dhara, | | | 2019 | | | [address] | | | | | | 4TH [facility], | | | | | | [place] [address] | | | | | | [phone] | | | | | | | | +--------+ + + + + | 03/04/ | Appointment | Rehabilitation | Genesis Ayon OT | | | 2019 | | | | | +--------+ + + + + | 03/09/ | Office | Orthopedic Surgery | Jeffrey Gandhi, | | | 2019 | Visit | | [address] | | | | | | [place] [address] | | | | | | [phone] | | | | | | | [...] [place] | | | | | | [address] | | | | | | [phone] | | | | | | | [...] | | | | | [place] [address] | | | | | | [phone] | | | | | | | | | | | | Azul Yeboah, | | | | | | MD [address] | | | | | | [place] | | | | | | [place] [address] | | | | | | [phone] | | | | | | | [...] | | | | | | [place] [address] | | | | | | [phone] | | | | | | | | +--------+ + + + + documented as of this encounter Visit Diagnoses Not on filedocumented in this encounter"
--- OUTSIDE RECORDS SUMMARY | ~2020-02-18 | XMS | Encounter Summary ---
Demographics + + + | Address | [address] | | | [place] [address] | + + + | Home Phone [...] Providers + +------+ + | Care Material Control Supervisor Name | Role | Phone [...] Medication Refill; | | 2019 | | [facility] | DO [address] | Medication Question | | | | MEDICAL CLIN[facility] [address] | [place] [address] | (Please have DrCarmen | | | | [address] [place], | [phone] | Klever call patient | | | | [place] [address] | | Monday re: | | | | [phone] | | medication | | | | [...] | | | | | [place] [address] | | | | | | [phone] | | | | | | | | | | | | Julia Fisher, | | | | | | PT | | +--------+ + + + + | 02/18/ | Appointment | Rehabilitation | Erika Ernst, | | | 2019 | | | DO [address] [place] | | | | | | [place] [address] | | | | | | [phone] | | | | | | | | | | | | Genesis Ayon, OT | | +--------+ + + + + | 02/25/ | Office | Primary Care | Erika rEnst, | | | 2019 | Visit | | DO [address] [place] | | | | | | [place] [address] | | | | | | [phone] | | | | | | | [...] | | | | | [place] [address] | | | | | | [phone] | | | | | | | | +--------+ + + + + | 02/27/ | Appointment | Radiology | Dhara, | | | 2019 | | | [address] | | | | | | 4TH [facility], | | | | | | [place] [address] | | | | | | [phone] | | | | | | | | +--------+ + + + + | 03/04/ | Appointment | Rehabilitation | Genesis Ayon OT | | | 2019 | | | | | +--------+ + + + + | 03/09/ | Office | Orthopedic Surgery | Jeffrey Gandhi, | | 2019 | Visit | | [address] | | | | | | [place] [address] | | | | | | [phone] | | | | | | | [...] [place] | | | | | | [address] | | | | | | [phone] | | | | | | | [...] | | | | | [place] [address] | | | | | | [phone] | | | | | | | | | | | | Azul Yeboah, | | | | | | MD [address] | | | | | | [place] | | | | | | [place] [address] | | | | | | [phone] | | | | | | | [...] | | | | | | [place] [address] | | | | | | [phone] | | | | | | | | +--------+ + + + + documented as of this encounter Visit Diagnoses Not on filedocumented in this encounter"
--- OUTSIDE RECORDS SUMMARY | ~2020-02-18 | XMS | Encounter Summary ---
Demographics + + + | Address | [address] | | | [place] [address] | + + + | Home Phone [...] | Author | [facility] | | | and [...] Providers + +------+ + | Care Medical Staff Director Name | Role | Phone | [...] 12/29/ | Telephone | [place] [facility] | [place] Erika A, | Other | | 2020 | | [facility] | DO [address] | | | | | MEDICAL CLIN[facility] [address] | [place] [address] | | | | | [address] [place], | [phone] | | | | | [place] [address] | | | | | | [phone] | | | +--------+ + + + [...] | | | | | [place] [address] | | | | | | [phone] | | | | | | | | | | | | Julia Fisher, | | | | | | PT | | +--------+ + + + + | 02/18/ | Appointment | Rehabilitation | Erika Ernst, | | | 2019 | | | DO [address] [place] | | | | | | [place] [address] | | | | | | [phone] | | | | | | | | | | | | Genesis Ayon OT | | +--------+ + + + + | 02/25/ | Office | Primary Care | Erika Ernst, | | | 2019 | Visit | | DO [address] [place] | | | | | | [place] [address] | | | | | | [phone] | | | | | | | [...] | | | | | [place] [address] | | | | | | [phone] | | | | | | | | +--------+ + + + + | 02/27/ | Appointment | Radiology | Dhara, | | | 2019 | | | [address] | | | | | | [facility] | | | | | | [place] [address] | | | | | | [phone] | | | | | | | [...] [place] | | | | | | [place] [address] | | | | | | [phone] | | | | | | | [...] [place] | | | | | | [address] | | | | | | [phone] | | | | | | | [...] | | | | | [place] [address] | | | | | | [phone] | | | | | | | | | | | | Azul Yeboah, | | | | | | MD [address] | | | | | | [place] | | | | | | [place] [address] | | | | | | [phone] | | | | | | | [...] | | | | | | [place] [address] | | | | | | [phone] | | | | | | | | +--------+ + + + + documented as of this encounter Visit Diagnoses Not on filedocumented in this encounter"
--- OUTSIDE RECORDS SUMMARY | ~2020-02-18 | XMS | Encounter Summary ---
Demographics + + + | Address | [address] | | | [place] [address] | + + + | Home Phone [...] Providers + +------+ + | Care Test Engine Mechanic Name | Role | Phone | [...] [facility] | DO [address] | | | | | [facility] [address] | [place] [address] | | | | | [address] [place], | [phone] | | | | | [place] [address] | | | | | | [phone] | | | +--------+ + + + [...] [place] | | | | | | [place], [place] [address] | | | | | | [phone] | | | | | | | | | | | | Julia Fisher, | | | | | | PT | | +--------+ + + + + | 02/18/ | Appointment | Rehabilitation | Erika Ernst, | | | 2019 | | | DO [address] | | | | | | [place] [address] | | | | | | [phone] | | | | | | | | | | | | [facility] | | +--------+ + + + + | 02/25/ | Office | Primary Care | Erika Ernst, | | | 2019 | Visit | | DO [address] | | | | | | [place] [address] | | | | | | [phone] | | | | | | | [...] | | | | | | [place] [address] | | | | | | [phone] | | | | | | | | +--------+ + + + + | 02/27/ | Appointment | Radiology | Dhara, | | | 2019 | | | DWAINE [address] | [address] | [address] [place], | | | | | | [place] [address] | | | | | | [phone] | | | | | | | [...] | | | | | [place] [address] | | | | | | [phone] | | | | | | | [...] [place] | | | | | | [address] | | | | | | [phone] | | | | | | | [...] | | | | | [place] [address] | | | | | | [phone] | | | | | | | | | | | | Azul Yeboah, | | | | | | MD [address] | | | | | | [place] [place] | | | | | | [place] [address] | | | | | | [phone] | | | | | | | [...] | | | | | | [place] [address] | | | | | | [phone] | | | | | | | | +--------+ + + + + documented as of this encounter Visit Diagnoses Not on filedocumented in this encounter"
--- OUTSIDE RECORDS SUMMARY | ~2020-02-18 | XMS | Encounter Summary ---
Demographics + + + | Address | [address] | | | [place] [address] | + + + | Home Phone [...] Providers + +------+ + | Care Home Economics Expert Name | Role | Phone | [...] | | | | encounter | [place] [address] | [place], [place] | | | | | | Phone: | [address] Phone: | | | | | | [phone] | [phone] | | | | | | Fax: | Fax: | | | | | | [phone] | [phone] | + + + + + + [...] | [facility] | [place] [address] | encounter (Primary | | | | [address] [place], | [phone] | Dx) | | | | [place] [address] | | | | | | [phone] | | | +--------+ + + + [...] | | 2019 | | | DO [address] [place] [address] | | | | | | [place] [address] | | | | | | [phone] | | | | | | | | | | | | Julia Fisher, | | | | | | PT | | +--------+ + + + + | 02/18/ | Appointment | Rehabilitation | Erika Ernst, | | | 2019 | | | DO [address] [place] | | | | | | [place] [address] | | | | | | [phone] | | | | | | | | | | | | Genesis Ayon OT | | +--------+ + + + + | 02/25/ | Office | Primary Care | Erika Ernst, | | | 2019 | Visit | | DO [address] | | | | | | [place] [address] | | | | | | [phone] | | | | | | | [...] | | | | | [place] [address] | | | | | | [phone] | | | | | | | | +--------+ + + + + | 02/27/ | Appointment | Radiology | Dhara, | | | 2019 | | | [address] | | | | | | [address] [place], | | | | | | [place] [address] | | | | | | [phone] | | | | | | | [...] | | | | | [place] [address] | | | | | | [phone] | | | | | | | [...] [place] | | | | | | [address] | | | | | | [phone] | | | | | | | [...] | | | | | [place] [address] | | | | | | [phone] | | | | | | | | | | | | Azul Yeboah, | | | | | | MD [address] | | | | | | [place] | | | | | | [place] [address] | | | | | | [phone] | | | | | | | [...] | | | | | | [place] [address] | | | | | | [phone] | | | | | | | [...]
--- OUTSIDE RECORDS SUMMARY | ~2020-02-18 | XMS | Encounter Summary ---
Demographics + + + | Address | [address] | | | [place] [address] | + + + | Home Phone [...] Team Providers + +------+ + | Care Closing Specialist Name | Role | Phone | + +------+ + PCP | Unavailable | + +------+ + Encounter Details +--------+ + + + + | Date | Type | Department | Care Team | Description | +--------+ + + + + | 01/29/ | [facility] | Spenser Roberts NP | | | 2014 | Encounter | [facility] | [address], | | | | | [facility] [address] | [place] [address] | | | | | [facility]TH [facility], | [phone] | | | | | [place] [address] | | | | | | [phone] | | | +--------+ + + + [...] | | | | | [place] [address] | | | | | | [phone] | | | | | | | | | | | | Julia Fisher, | | | | | | PT | | +--------+ + + + + | 02/18/ | Appointment | Rehabilitation | Erika Ernst, | | | 2019 | | | DO [address] | | | | | | [place] [address] | | | | | | [phone] | | | | | | | | | | | | Genesis Ayon OT | | +--------+ + + + + | 02/25/ | Office | Primary Care | Erika Ernst, | | | 2019 | Visit | | DO [address] | | | | | | [place] [address] | | | | | | [phone] | | | | | | | [...] | | | | | [place] [address] | | | | | | [phone] | | | | | | | | +--------+ + + + + | 02/27/ | Appointment | Radiology | Dhara, | | | 2019 | | | [address] | | | | | | 4TH [facility], | | | | | | [place] [address] | | | | | | [phone] | | | | | | | | +--------+ + + + + | 03/04/ | Appointment | Rehabilitation | Genesis Ayon OT | | | 2019 | | | | | +--------+ + + + + | 03/09/ | Office | Orthopedic Surgery | Jeffrey Gandhi, | | 2019 | Visit | | [address] | | | | | | [place] [address] | | | | | | [phone] | | | | | | | [...] [place] | | | | | | [address] | | | | | | [phone] | | | | | | | [...] [address] | | | | | | [phone] | | | | | | | | | | | | Azul Yeboah, | | | | | | MD [address] | | | | | | [place] | | | | | | [place] [address] | | | | | | [phone] | | | | | | | [...] | | | | | | [place] [address] | | | | | | [phone] | | | | | | | | +--------+ + + + + documented as of this encounter Visit Diagnoses Not on filedocumented in this encounter"
--- OUTSIDE RECORDS SUMMARY | ~2020-02-18 | XMS | Encounter Summary ---
Demographics + + + | Address | [address] | | | [place] [address] | + + + | Home Phone [...] Providers + +------+ + | Care Hydraulic Press In Operator Name | Role | Phone | [...] | Hematology | | DWAINE Oconnor | [place] | | | Required | and Oncology | Leukocytosis | [address] | MD [place] | | | | | , | [place], | [address] | | | | | unspecified | [place] [address] | [place], | | | | | type | Phone: | [place] [address] | | | | | | [phone] | Phone: | | | | | | Fax: | [phone] | | | | | | [phone] | Fax: | | | | | | | [phone] | + + + + + + + Encounter Details +--------+ + + + + | Date | Type | Department | Care Team | Description | +--------+ + + + + | 02/20/ | Orders Only | [place] [facility] | Anastasia Alberto, | Leukocytosis, | | 2019 | | [facility] | LEARNING AND DEVELOPMENT ADMINISTRATOR [address] | unspecified type | | | | MED[facility] [address] | [place] [address] | (Primary Dx) | | | | [address] [place], | [phone] | | | | | [place] [address] | | | | | | [phone] | | | +--------+ + + + [...] | 2019 | | | DO [address] | | | | | | [place] [address] | | | | | | [phone] | | | | | | | | | | | | Julia Fisher, | | | | | | PT | | +--------+ + + + + | 02/18/ | Appointment | Rehabilitation | Erika Ernst, | | | 2019 | | | DO [address] [place] | | | | | | [place] [address] | | | | | | [phone] | | | | | | | | | | | | Genesis Ayon OT | | +--------+ + + + + | 02/25/ | Office | Primary Care | Erika Ernst, | | | 2019 | Visit | | DO [address] | | | | | | [place] [address] | | | | | | [phone] | | | | | | | [...] | | | | | [place] [address] | | | | | | [phone] | | | | | | | | +--------+ + + + + | 02/27/ | Appointment | Radiology | Dhara, | | | 2019 | | | [address] | | | | | | [facility] | | | | | | [place] [address] | | | | | | [phone] | | | | | | | [...] | | | | [place] [address] | | | | | | [phone] | | | | | | | [...] [place] | | | | | | [address] | | | | | | [phone] | | | | | | | [...] | | | | | [place] [address] | | | | | | [phone] | | | | | | | | | | | | Azul Yeboah, | | | | | | MD [address] | | | | | | [place] | | | | | | [place] [address] | | | | | | [phone] | | | | | | | [...] | | | | | | [place] [address] | | | | | | [phone] | | | | | | | [...]
--- OUTSIDE RECORDS SUMMARY | ~2020-02-18 | XMS | Encounter Summary ---
Demographics + + + | Address | [address] | | | [place] [address] | + + + | Home Phone [...] Providers + +------+ + | Care Chief Operator Hydroformer Name | Role | Phone | + +------+ + PCP | Unavailable | + +------+ + Encounter Details +--------+ + + + + | Date | Type | Department | Care Team | Description | +--------+ + + + + | 03/07/ | [facility] | Heike Rodriguez, | | | 2016 | Encounter | [facility] | DESIGN DRAFTER [address] | | | | | CENTER [address] | [place] | | | | | [place] | [address] | | | | | [address] | | | | | | [phone] | | | +--------+ + + + [...] | | 2020 | | | DO [address] [place] [address] | | | | | | [place], [place] [address] | | | | | | [phone] | | | | | | | | | | | | Julia Fisher, | | | | | | PT | | +--------+ + + + + | 02/18/ | Appointment | Rehabilitation | Erika Ernst, | | | 2019 | | | DO [address] | | | | | | [place] [address] | | | | | | [phone] | | | | | | | | | | | | Genesis Ayon, SUSAN | | +--------+ + + + + | 02/25/ | Office | Primary Care | Erika Ernst, | | | 2019 | Visit | | DO [address] [place] | | | | | | [place] [address] | | | | | | [phone] | | | | | | | [...] [address] | | | | | | [phone] | | | | | | | | +--------+ + + + + | 02/27/ | Appointment | Radiology | Dhara, | | | 2019 | | | DWAINE [address] | | | | | | [address] [place], | | | | | | [place] [address] | | | | | | [phone] | | | | | | | [...] | | | | | [place] [address] | | | | | | [phone] | | | | | | | [...] [place] | | | | | | [address] | | | | | | [phone] | | | | | | | [...] | | | | | [place] [address] | | | | | | [phone] | | | | | | | | | | | | Azul Yeboah, | | | | | | MD [address] | | | | | | [place] | | | | | | [place] [address] | | | | | | [phone] | | | | | | | [...] | | | | | | [place] [address] | | | | | | [phone] | | | | | | | [...] | | and/or osteomyelitis, MRI recommended. Job#: [id number] Read By: ANJELICA | | Oliver CHAMBERS MD Released By: ANJELICA CHAMBERS, MDDate: 03/08/2016 [...]
--- OUTSIDE RECORDS SUMMARY | ~2020-02-18 | XMS | Encounter Summary ---
Demographics + + + | Address | [address] | | | [place] [address] | + + + | Home Phone [...] Providers + +------+ + | Care Water Filterer Helper Name | Role | Phone | [...] Results | | 2018 | | [facility] | SOCIAL MEDIA COMMUNITY MANAGER | | | | | MEDICAL CLIN[facility] [address] | | | | | | 4TH [facility] [place], | | | | | | [place] [address] | | | | | | [phone] | | | +--------+ + + + [...] | | 2019 | | | DO [facility] | | | | | | [place] [address] | | | | | | [phone] | | | | | | | | | | | | Julia Fisher, | | | | | | PT | | +--------+ + + + + | 05/20/ | Appointment | Rehabilitation | Erika Ernst, | | | 2019 | | | DO [address] [place] | | | | | | [place] [address] | | | | | | [phone] | | | | | | | | | | | | Genesis Ayon OT | | +--------+ + + + + | 02/25/ | Office | Primary Care | Erika Ernst, | | | 2019 | Visit | | DO [address] [place] | | | | | | [place] [address] | | | | | | [phone] | | | | | | | [...] | | | | | [place] [address] | | | | | | [phone] | | | | | | | | +--------+ + + + + | 02/27/ | Appointment | Radiology | Dhara, | | | 2019 | | | D[address] | | | | | | 4TH [facility] [place], | | | | | | [place] [address] | | | | | | [phone] | | | | | | | [...] | | | | | [place] [address] | | | | | | [phone] | | | | | | | [...] [place] | | | | | | [address] | | | | | | [phone] | | | | | | | [...] | | | | | [place] [address] | | | | | | [phone] | | | | | | | | | | | | Azul Yeboah, | | | | | | MD [address] | | | | | | [place] | | | | | | [place] [address] | | | | | | [phone] | | | | | | | [...] | | | | | | [place] [address] | | | | | | [phone] | | | | | | | | +--------+ + + + + documented as of this encounter Visit Diagnoses Not on filedocumented in this encounter"
--- OUTSIDE RECORDS SUMMARY | ~2020-02-18 | XMS | Encounter Summary ---
Demographics + + + | Address | [address] | | | [place] [address] | + + + | Home Phone [...] Team Providers + +------+ + | Care Gasoline Plant Operator Name | Role | Phone [...] | | | | symptoms | [place] [address] | [address] Phone: | | | | | | Phone: | [phone] | | | | | | [phone] | Fax: | | | | | | Fax: | [phone] | | | | | | [phone] | | +--------+ + + + + [...] | | | [place], [place] | [address] | Dx) | | | | [address] | | | | | | [phone] | | | +--------+---------+ + + + [...] | : 1990 | Medical Record Number:[id number] | Author: Emily Mittal DPM | Date [...] hip and her ankle and also notified [facility] sical therapy that her knee recently started hurting. Patient is set to obtain her orthotics from [facility] in 2 weeks. Medications Current Outpatient Medications [...] mouth. Once a week Cholecalciferol (VITAMIN D3) 50454 units TABS Take 1 tablet by mouth [...] MOTOR/SENSORY NERVE CONDUCTION STUDIES REF AUTH REQUEST ([id number]) Treatment and Plan of Care In light of new onset symptoms I'm going to recommend an EMG/MCV for this patient In the meantime in order to make the patient more comfortable we've given crutches to her t o be nonweightbearing to her left side. Crutch training was performed by my certified medic al clinic office assistant. Recommend ibuprofen when necessary pain and [...] cancer Maternal Grandmother Heart attack Maternal Aunt [place] Social History Socioeconomic History Marital status: Single [...] and their vital signs recorded by my clinic office assistant today, a s found in this chart note. Electronically signed by: Emily Mittal DPM 12/06/2018 at 15:36 Note: Part of this report was transcribed using voice recognition software. Every effort wa s made to ensure accuracy. However, inadvertent computerized weed eradicator errors may be pre sent. CC: Erika [...] | | | | | [place] [address] | | | | | | [phone] | | | | | | | | | | | | Julia Fisher, | | | | | | PT | | +--------+ + + + + | 02/18/ | Appointment | Rehabilitation | Erika Ernst, | | 2019 | | | DO [address] | | | | | | [place] [address] | | | | | | [phone] | | | | | | | | | | | | Genesis Ayon, SUSAN | | +--------+ + + + + | 02/25/ | Office | Primary Care | Erika Ernst, | | | 2019 | Visit | | DO [address] [place] [address] | | | | | | [place] [address] | | | | | | [phone] | | | | | | | [...] | | | | | [place] [address] | | | | | | [phone] | | | | | | | | +--------+ + + + + | 02/27/ | Appointment | Radiology | Dhara, | | | 2019 | | | DWAINE Ross [address] | | | | | | [address] [place], | | | | | | [place] [address] | | | | | | [phone] | | | | | | | | +--------+ + + + + | 03/04/ | Appointment | Rehabilitation | Genesis Ayon OT | | | 2019 | | | | | +--------+ + + + + | 03/09/ | Office | Orthopedic Surgery | Jeffrey Gandhi, | | | 2019 | Visit | | [address] | | | | | | [place] [address] | | | | | | [phone] | | | | | | | [...] [place] | | | | | | [address] | | | | | | [phone] | | | | | | | [...] | | | | | [place] [address] | | | | | | [phone] | | | | | | | | | | | | Azul Yeboah, | | | | | | MD [address] | | | | | | [place] | | | | | | [place] [address] | | | | | | [phone] | | | | | | | [...] | | | | | | [place] [address] | | | | | | [phone] | | | | | | | [...] | | | symptoms | | | ([id number]) | | | | | + + +--------+ + + documented as of this encounter Visit Diagnoses + + | Diagnosis | + + | Radiculopathy with lower extremity symptoms - Primary | + + documented in this encounter
--- OUTSIDE RECORDS SUMMARY | ~2020-02-18 | XMS | Encounter Summary ---
Demographics + + + | Address | [address] | | | [place] [address] | + + + | Home Phone [...] Team Providers + +------+ + | Care Art Librarian Name | Role | Phone | [...] without | | 2020 | Visit | [facility] | DO [address] | aura and without | | | | [facility] [address] | [address] [place] | status migrainosus, | | | | [address] [place], | [place] [address] | not intractable | | | | [place] [address] | [phone] | (Primary Dx) | | | | [phone] | | | +--------+---------+ + + + [...] care. Subjective: HPI: Patient presents to the [facility] for migraine. Last night the room was [...] student Entered by Marissa Bautista CNA 2, [facility], acting as scribe for Brandi Pitts DO. The documentation recorded by the scribe accurately reflects the service I personally perfo rmed and the decisions made by me. Electronically signed by: Brandi Pitts DO 11/12/2019 4:59 PM Note: Part of this report was transcribed using voice recognition software. Every effort wa s made to ensure accuracy. However, inadvertent computerized batchmaker errors may be pre sent. documented in this encounter Plan of Treatment +--------+ + + + + | Date | Type | Specialty | Care Team | Description | +--------+ + + + + | 02/18/ | Appointment | Rehabilitation | Erika Ernst, | | | 2019 | | | DO [address] [place] | | | | | | [place] [address] | | | | | | [phone] | | | | | | | | | | | | Julia Fisher, | | | | | | PT | | +--------+ + + + + | 02/18/ | Appointment | Rehabilitation | Erika Ernst, | | | 2019 | | | DO [address] [place] | | | | | | [place] [address] | | | | | | [phone] | | | | | | | | | | | | Genesis Ayon, OT | | +--------+ + + + + | 02/25/ | Office | Primary Care | Erika Ernst, | | | 2019 | Visit | | DO [address] [place] | | | | | | [place] [address] | | | | | | [phone] | | | | | | | [...] | | | | | [place] [address] | | | | | | [phone] | | | | | | | | +--------+ + + + + | 02/27/ | Appointment | Radiology | Dhara, | | | 2019 | | | DWA[address] | | | | | | 4TH [facility] [place], | | | | | | [place] [address] | | | | | | [phone] | | | | | | | | +--------+ + + + + | 03/04/ | Appointment | Rehabilitation | Genesis Ayon OT | | | 2019 | | | | | +--------+ + + + + | 03/09/ | Office | Orthopedic Surgery | Jeffrey Gandhi, | | | 2019 | Visit | | [address] [facility] | | | | | | [place] [address] | | | | | | [phone] | | | | | | | [...] [place] | | | | | | [address] | | | | | | [phone] | | | | | | | [...] | | | | | [place] [address] | | | | | | [phone] | | | | | | | | | | | | Azul Yeboah, | | | | | | MD [address] | | | | | | [place] | | | | | | [place] [address] | | | | | | [phone] | | | | | | | | +--------+ + + + + | 04/08/ | Appointment | Nutrition | Janel Webster | | | 2019 | | | [place], [place]HOA | | +--------+ + + + + | 05/21/ | Office | Neurology | Dhara, | | | 2019 | Visit | | Cody, CUSHION COVER INSPECTOR [address] | | | | | | [address] [facility] [place], | | | | | | [place] [address] | | | | | | [phone] | | | | | | | [...]
--- OUTSIDE RECORDS SUMMARY | ~2020-02-18 | XMS | Encounter Summary ---
Demographics + + + | Address | [address] | | | [place] [address] | + + + | Home Phone [...] + +------+ + | Care Mid Level Java Developer Name | Role | Phone | [...] [address] [place] | [place] [address] | | | | | [place], [place] | [phone] | | | | | [address] | | | | | | [phone] | | | +--------+ + + + [...] | | | | | | [place] [address] | | | | | | [phone] | | | | | | | | | | | | Julia Fisher, | | | | | | PT | | +--------+ + + + + | 02/18/ | Appointment | Rehabilitation | Erika Ernst, | | 2019 | | | DO [address] [place] | | | | | | [place] [address] | | | | | | [phone] | | | | | | | | | | | | Genesis Ayon, OT | | +--------+ + + + + | 02/25/ | Office | Primary Care | Erika Ernst, | | | 2019 | Visit | | DO [facility] [address] | | | | | | [place] [address] | | | | | | [phone] | | | | | | | [...] | | | | | [place] [address] | | | | | | [phone] | | | | | | | | +--------+ + + + + | 02/27/ | Appointment | Radiology | Dhara, | | | 2019 | | | [address]WA[address] | | | | | | [address] [place], | | | | | | [place] [address] | | | | | | [phone] | | | | | | | [...] | | | | | [place] [address] | | | | | | [phone] | | | | | | | [...] [place] | | | | | | [address] | | | | | | [phone] | | | | | | | [...] | | | | | [place] [address] | | | | | | [phone] | | | | | | | | | | | | Azul Yeboah, | | | | | | [address] | | | | | | [place] | | | | | | [place] [address] | | | | | | [phone] | | | | | | | [...] | | | | | | [place] [address] | | | | | | [phone] | | | | | | | [...]
--- OUTSIDE RECORDS SUMMARY | ~2020-02-18 | XMS | Encounter Summary ---
Demographics + + + | Address | [address] | | | [place] [address] | + + + | Home Phone [...] Providers + +------+ + | Care Nurse Outreach Case Manager Name | Role | Phone [...] Medication Refill | | 2018 | | [facility] | [place] TIMBER YARD WORKER | | | | | MEDICAL CLINIC [address] | | | | | | [address] [place], | | | | | | [place] [address] | | | | | | [phone] | | | +--------+--------+ + + + [...] | | | | | [place] [address] | | | | | | [phone] | | | | | | | | | | | | Julia Fisher, | | | | | | PT | | +--------+ + + + + | 02/18/ | Appointment | Rehabilitation | Erika Ernst, | | | 2019 | | | DO [address] [place] | | | | | | [place] [address] | | | | | | [phone] | | | | | | | | | | | | Genesis Ayon OT | | +--------+ + + + + | 02/25/ | Office | Primary Care | Erika Ernst, | | | 2019 | Visit | | DO [address] [place] | | | | | | [place] [address] | | | | | | [phone] | | | | | | | [...] | | | | | [place] [address] | | | | | | [phone] | | | | | | | | +--------+ + + + + | 02/27/ | Appointment | Radiology | Dhara, | | | 2019 | | | DWA[address] | | | | | | 4TH [facility], | | | | | | [place] [address] | | | | | | [phone] | | | | | | | [...] | | | | [place], [place] [address] | | | | | | [phone] | | | | | | | [...] [place] | | | | | | [address] | | | | | | [phone] | | | | | | | [...] | | | | | [place] [address] | | | | | | [phone] | | | | | | | | | | | | Azul Yeboah, | | | | | | MD [address] | | | | | | [place] | | | | | | [place] [address] | | | | | | [phone] | | | | | | | [...] | | | | | | [place] [address] | | | | | | [phone] | | | | | | | | +--------+ + + + + documented as of this encounter Visit Diagnoses Not on filedocumented in this encounter"
--- OUTSIDE RECORDS SUMMARY | ~2020-02-18 | XMS | Encounter Summary ---
Demographics + + + | Address | [address] | | | [place] [address] | + + + | Home Phone [...] Team Providers + +------+ + | Care Interim Controller Name | Role | Phone | [...] | | | [place] | [place] [address] | [place] [address] | | | | | | Phone: | Phone: | | | | | | [phone] | [phone] | | | | | | Fax: | Fax: | | | | | | [phone] | [phone] | +--------+--------+ + + + + Encounter [...] [address] [place] | [place] [address] | | | | | [place], [place] | [phone] | | | | | [address] | | | | | | [phone] | Celia Washington, PT | | +--------+ [...] | 11/26/19 | | | (VITAMIN D3) 11664 | mouth Once a week | tablet [...] might be different fr om the original. [facility] [address] [place] [address] Physical Therapy Daily Treatment Note Date: 01/09/2019 [...] with blue theraband; SLS. Ongoing: Wall sits [id number] holds, Bridging 3 x 10 reps, Side [...] | | | | | [place] [address] | | | | | | [phone] | | | | | | | | | | | | Julia Fisher, | | | | | | PT | | +--------+ + + + + | 02/18/ | Appointment | Rehabilitation | Erika Ernst, | | | 2019 | | | DO [address] [place] | | | | | | [place] [address] | | | | | | [phone] | | | | | | | | | | | | [facility] | | +--------+ + + + + | 02/25/ | Office | Primary Care | Erika Ernst, | | | 2019 | Visit | | DO [address] [place] | | | | | | [place] [address] | | | | | | [phone] | | | | | | | [...] | | | | | [place] [address] | | | | | | [phone] | | | | | | | | +--------+ + + + + | 02/27/ | Appointment | Radiology | Dhara, | | | 2019 | | | DWAINE Ross [address] | | | | | | [address] [facility], | | | | | | [place] [address] | | | | | | [phone] | | | | | | | [...] [address] | | | | | | [place] [address] | | | | | | [phone] | | | | | | | [...] [place] | | | | | | [address] | | | | | | [phone] | | | | | | | [...] | | | | | [place] [address] | | | | | | [phone] | | | | | | | | | | | | Azul Yeboah, | | | | | | MD [address] | | | | | | [place] | | | | | | [place] [address] | | | | | | [phone] | | | | | | | [...] | | | | | | [place] [address] | | | | | | [phone] | | | | | | | | +--------+ + + + + documented as of this encounter Visit Diagnoses + + | Diagnosis | + + | Acute pain of right knee - Primary | + + documented in this encounter"
--- OUTSIDE RECORDS SUMMARY | ~2020-02-18 | XMS | Encounter Summary ---
Demographics + + + | Address | [address] | | | [place] [address] | + + + | Home Phone [...] Providers + +------+ + | Care Dust Mixer Name | Role | Phone | + +------+ + PCP | Unavailable | + +------+ + Encounter Details +--------+ + + + + | Date | Type | Department | Care Team | Description | +--------+ + + + + | 06/18/ | [facility] | Heike Rodriguez, | | | 2013 | Encounter | [facility] | WIRE MESH FILTER FABRICATOR [address] | | | | | CENTER [address] | [place] | | | | | [place] | [address] | | | | | [address] | | | | | | [phone] | | | +--------+ + + + [...] | | | | | [place] [address] | | | | | | [phone] | | | | | | | | | | | | Julia Fisher, | | | | | | PT | | +--------+ + + + + | 02/18/ | Appointment | Rehabilitation | Erika Ernst, | | | 2019 | | | DO [address] | | | | | | [place] [address] | | | | | | [phone] | | | | | | | | | | | | Genesis Ayon, OT | | +--------+ + + + + | 02/25/ | Office | Primary Care | Erika Ernst, | | | 2019 | Visit | | DO [address] | | | | | | [place] [address] | | | | | | [phone] | | | | | | | [...] | | | | | [place] [address] | | | | | | [phone] | | | | | | | | +--------+ + + + + | 02/27/ | Appointment | Radiology | Dhara, | | | 2019 | | | [address] | | | | | | 4TH [facility], | | | | | | [place] [address] | | | | | | [phone] | | | | | | | [...] | | | | | [place] [address] | | | | | | [phone] | | | | | | | [...] [place] | | | | | | [address] | | | | | | [phone] | | | | | | | [...] | | | | | [place] [address] | | | | | | [phone] | | | | | | | | | | | | Azul Yeboah, | | | | | | MD [address] | | | | | | [place] | | | | | | [place] [address] | | | | | | [phone] | | | | | | | [...] | | | | | | [place] [address] | | | | | | [phone] | | | | | | | | +--------+ + + + + documented as of this encounter Visit Diagnoses Not on filedocumented in this encounter"
--- OUTSIDE RECORDS SUMMARY | ~2020-02-18 | XMS | Encounter Summary ---
Demographics + + + | Address | [address] | | | [place] [address] | + + + | Home Phone [...] Providers + +------+ + | Care Claims Correspondence Clerk Name | Role | Phone | [...] | DO [address] | environmental | | | | [facility] | [place] [address] | allergies (Primary | | | | [address] [place], | [phone] | Dx); Nausea | | | | [place] [address] | | | | | | [phone] | | | +--------+---------+ + + + [...] daily. 1 Inhaler 11 Cholecalciferol (VITAMIN D3) 49324 units TABS Take 1 tablet by mouth [...] | | | | | [place] [address] | | | | | | [phone] | | | | | | | | | | | | Julia Fisher, | | | | | | PT | | +--------+ + + + + | 02/18/ | Appointment | Rehabilitation | Erika Ernst, | | | 2019 | | | DO [address] | | | | | | [place] [address] | | | | | | [phone] | | | | | | | | | | | | Genesis Ayon OT | | +--------+ + + + + | 02/25/ | Office | Primary Care | Erika Ernst, | | | 2019 | Visit | | DO [address] | | | | | | [place] [address] | | | | | | [phone] | | | | | | | [...] | | | | | [place] [address] | | | | | | [phone] | | | | | | | | +--------+ + + + + | 02/27/ | Appointment | Radiology | Dhara, | | | 2019 | | | [address] | | | | [address] [place], | | | | | | [place] [address] | | | | | | [phone] | | | | | | | | +--------+ + + + + | 03/04/ | Appointment | Rehabilitation | Genesis Ayon OT | | | 2019 | | | | | +--------+ + + + + | 03/09/ | Office | Orthopedic Surgery | Jeffrey Gandhi, | | | 2019 | Visit | | [place] [address] [facility] | | | | | | [place] [address] | | | | | | [phone] | | | | | | | [...] [place] | | | | | | [address] | | | | | | [phone] | | | | | | | [...] | | | | | [place] [address] | | | | | | [phone] | | | | | | | | | | | | Azul Yeboah, | | | | | | MD [address] | | | | | | [place] | | | | | | [place] [address] | | | | | | [phone] | | | | | | | [...] | | | | | | [place] [address] | | | | | | [phone] | | | | | | | [...] + + | [place] [facility] | [address] | [place] | [phone] | | [facility] | | [address] | | | [facility] | | | | + + + + + documented in this encounter Visit Diagnoses + + | Diagnosis | + + | Asthma due to environmental allergies - Primary | + + | Nausea Nausea alone | + + documented in this encounter
--- OUTSIDE RECORDS SUMMARY | ~2020-02-18 | XMS | Encounter Summary ---
Demographics + + + | Address | [address] | | | [place] [address] | + + + | Home Phone [...] Providers + +------+ + | Care Fashion Photographer Name | Role | Phone | [...] | MEDICAL CLIN[facility] [address] | [facility] [place] [address] | | | | | [address] [facility], | [phone] | | | | | [place] [address] | | | | | | [phone] | | | +--------+ + + + [...] | | | | | [place] [address] | | | | | | [phone] | | | | | | | | | | | | Julia Fisher, | | | | | | PT | | +--------+ + + + + | 02/18/ | Appointment | Rehabilitation | Erika Ernst, | | | 2019 | | | DO [address] | | | | | | [place] [address] | | | | | | [phone] | | | | | | | | | | | | Genesis Ayon OT | | +--------+ + + + + | 02/25/ | Office | Primary Care | Erika Ernst, | | | 2019 | Visit | | DO [address] | | | | | | [place] [address] | | | | | | [phone] | | | | | | | [...] | | | | | [place] [address] | | | | | | [phone] | | | | | | | | +--------+ + + + + | 02/27/ | Appointment | Radiology | Dhara, | | | 2019 | | | [address] | | | | | | 4TH [facility], | | | | | | [place] [address] | | | | | | [phone] | | | | | | | | +--------+ + + + + | 03/04/ | Appointment | Rehabilitation | Genesis Ayon OT | | | 2019 | | | | | +--------+ + + + + | 03/09/ | Office | Orthopedic Surgery | Jeffrey Gandhi, | | 2019 | Visit | | [address] | | | | | | [place] [address] | | | | | | [phone] | | | | | | | [...] [place] | | | | | | [address] | | | | | | [phone] | | | | | | | [...] | | | | | [place] [address] | | | | | | [phone] | | | | | | | | | | | | Azul Yeboah, | | | | | | MD [address] | | | | | | [place] | | | | | | [place] [address] | | | | | | [phone] | | | | | | | [...] | | | | | | [place] [address] | | | | | | [phone] | | | | | | | | +--------+ + + + + documented as of this encounter Visit Diagnoses Not on filedocumented in this encounter"
--- OUTSIDE RECORDS SUMMARY | ~2020-02-18 | XMS | Encounter Summary ---
Demographics + + + | Address | [address] | | | [place] [address] | + + + | Home Phone [...] Providers + +------+ + | Care Bottom Buffer Name | Role | Phone | [...] | [place], [place] | [place] [address] | | | | | [address] | [phone] | | | | | [phone] | | | +--------+ + + + [...] | | | | | [place] [address] | | | | | | [phone] | | | | | | | | | | | | Julia Fisher, | | | | | | PT | | +--------+ + + + + | 02/18/ | Appointment | Rehabilitation | Erika Ernst, | | | 2019 | | | DO [address] | | | | | | [place] [address] | | | | | | [phone] | | | | | | | | | | | | Genesis Ayon OT | | +--------+ + + + + | 02/25/ | Office | Primary Care | Erika Ernst, | | | 2019 | Visit | | DO [address] | | | | | | [place] [address] | | | | | | [phone] | | | | | | | [...] | | | | | [place] [address] | | | | | | [phone] | | | | | | | | +--------+ + + + + | 02/27/ | Appointment | Radiology | Dhara, | | | 2019 | | | [address] | | | | | | 4TH [facility] [place], | | | | | | [place] [address] | | | | | | [phone] | | | | | | | | +--------+ + + + + | 03/04/ | Appointment | Rehabilitation | Genesis Ayon OT | | | 2019 | | | | | +--------+ + + + + | 03/09/ | Office | Orthopedic Surgery | Jeffrey Gandhi, | | | 2019 | Visit | | [place] [address] [facility] | | | | | | [place] [address] | | | | | | [phone] | | | | | | | [...] [place] | | | | | | [address] | | | | | | [phone] | | | | | | | [...] | | | | | [place] [address] | | | | | | [phone] | | | | | | | | | | | | Azul Yeboah, | | | | | | MD [address] | | | | | | [place] | | | | | | [place] [address] | | | | | | [phone] | | | | | | | [...] | | | | | | [place] [address] | | | | | | [phone] | | | | | | | | +--------+ + + + + documented as of this encounter Visit Diagnoses Not on filedocumented in this encounter"
--- OUTSIDE RECORDS SUMMARY | ~2020-02-18 | XMS | Encounter Summary ---
Demographics + + + | Address | [address] | | | [place] [address] | + + + | Home Phone [...] Providers + +------+ + | Care Cable Puller Name | Role | Phone | [...] | | | [address] [place] [place], | [address] | | | | | [place] [address] | | | | | | [phone] | | | +--------+ + + + [...] | 2019 | | | DO [address] | | | | | | [place] [address] | | | | | | [phone] | | | | | | | | | | | | Julia Fisher, | | | | | | PT | | +--------+ + + + + | 02/18/ | Appointment | Rehabilitation | Erika Ernst, | | | 2019 | | | DO [address] | | | | | | [place] [address] | | | | | | [phone] | | | | | | | | | | | | Genesis Ayon OT | | +--------+ + + + + | 02/25/ | Office | Primary Care | Erika Ernst, | | | 2019 | Visit | | DO [address] | | | | | | [place] [address] | | | | | | [phone] | | | | | | | [...] | | | | | [place] [address] | | | | | | [phone] | | | | | | | | +--------+ + + + + | 02/27/ | Appointment | Radiology | Dhara, | | | 2019 | | | [address] Ross [address] | | | | | | [address] [facility] [place], | | | | | | [place] [address] | | | | | | [phone] | | | | | | | [...] | | | | | [place] [address] | | | | | | [phone] | | | | | | | [...] [place] | | | | | | [address] | | | | | | [phone] | | | | | | | [...] | | | | | [place] [address] | | | | | | [phone] | | | | | | | | | | | | Azul Yeboah, | | | | | | MD [address] | | | | | | [place] | | | | | | [place] [address] | | | | | | [phone] | | | | | | | [...] | | | | | | [place] [address] | | | | | | [phone] | | | | | | | | +--------+ + + + + documented as of this encounter Visit Diagnoses Not on filedocumented in this encounter"
--- OUTSIDE RECORDS SUMMARY | ~2020-02-18 | XMS | Encounter Summary ---
Demographics + + + | Address | [address] | | | [place] [address] | + + + | Home Phone [...] Providers + +------+ + | Care Food Cart Attendant Name | Role | Phone | + +------+ + PCP | Unavailable | + +------+ + Encounter Details +--------+ + + + + | Date | Type | Department | Care Team | Description | +--------+ + + + + | 08/26/ | [facility] | Jessica Hoang, | | | 2012 | Encounter | HOSPITAL EM[facility]Y | [address] | | | | | CENTER [address] | [place] | | | | | [place] | [address] | | | | | [address] | | | | | | [phone] | | | +--------+ + + + [...] | | | | | [place] [address] | | | | | | [phone] | | | | | | | | | | | | Julia Fisher, | | | | | | PT | | +--------+ + + + + | 02/18/ | Appointment | Rehabilitation | Erika Ernst, | | | 2019 | | | DO [address] | | | | | | [place] [address] | | | | | | [phone] | | | | | | | | | | | | Genesis Ayon, SUSAN | | +--------+ + + + + | 02/25/ | Office | Primary Care | Erika Ernst, | | | 2019 | Visit | | DO [address] | | | | | | [place] [address] | | | | | | [phone] | | | | | | | [...] | | | | | [place] [address] | | | | | | [phone] | | | | | | | | +--------+ + + + + | 02/27/ | Appointment | Radiology | Dhara, | | | 2019 | | | [address] | | | | | | 4TH [facility], | | | | | | [place] [address] | | | | | | [phone] | | | | | | | | +--------+ + + + + | 03/04/ | Appointment | Rehabilitation | Genesis Ayon OT | | | 2019 | | | | | +--------+ + + + + | 03/09/ | Office | Orthopedic Surgery | Jeffrey Gandhi, | | | 2019 | Visit | | [address] [facility] | | | | | | [place] [address] | | | | | | [phone] | | | | | | | [...] [place] | | | | | | [address] | | | | | | [phone] | | | | | | | [...] | | | | | [place] [address] | | | | | | [phone] | | | | | | | | | | | | Azul Yeboah, | | | | | | MD [address] | | | | | | [place] | | | | | | [place] [address] | | | | | | [phone] | | | | | | | [...] | | | | | | [place] [address] | | | | | | [phone] | | | | | | | | +--------+ + + + + documented as of this encounter Visit Diagnoses Not on filedocumented in this encounter"
--- OUTSIDE RECORDS SUMMARY | ~2020-02-18 | XMS | Encounter Summary ---
Demographics + + + | Address | [address] | | | [place] [address] | + + + | Home Phone [...] Providers + +------+ + | Care Maintenance Shop Welder Name | Role | Phone | [...] | | | | [place] | [place] [address] | [place], [place] | | | | | l allergies | Phone: | [address] Phone: | | | | | Chronic | [phone] | [phone] | | | | | congestion | Fax: | Fax: | | | | | of paranasal | [phone] | [phone] | | | | | sinus | [...] | MEDICAL CL[facility] [address] | [place] [address] | Environmental | | | | [address] [place], | [phone] | allergies; Chronic | | | | [place] [address] | | congestion of | | | | [phone] | | paranasal sinus; | | | [...] will add the chronic ear issue and police patrol officer montrell sinus to the referral for Dr [...] | | | | | [place] [address] | | | | | | [phone] | | | | | | | | | | | | Julia Fisher, | | | | | | PT | | +--------+ + + + + | 02/18/ | Appointment | Rehabilitation | Erika Ernst, | | | 2019 | | | DO [address] | | | | | | [place] [address] | | | | | | [phone] | | | | | | | | | | | | Genesis Ayon OT | | +--------+ + + + + | 02/25/ | Office | Primary Care | Erika Ernst, | | | 2019 | Visit | | DO [address] | | | | | | [place] [address] | | | | | | [phone] | | | | | | | [...] | | | | | [place] [address] | | | | | | [phone] | | | | | | | | +--------+ + + + + | 02/27/ | Appointment | Radiology | Dhara, | | | 2019 | | | DWAINE Ross [address] | | | | | | [address] [place], | | | | | | [place] [address] | | | | | | [phone] | | | | | | | [...] HOSPITAL | | | | | | [place] [address] | | | | | | [phone] | | | | | | | [...] [place] | | | | | | [address] | | | | | | [phone] | | | | | | | [...] | | | | | [place] [address] | | | | | | [phone] | | | | | | | | | | | | Azul Yeboah, | | | | | | MD [address] | | | | | | [place] | | | | | | [place] [address] | | | | | | [phone] | | | | | | | [...] | | | | | | [place] [address] | | | | | | [phone] | | | | | | | [...]
--- OUTSIDE RECORDS SUMMARY | ~2020-02-18 | XMS | Encounter Summary ---
Demographics + + + | Address | [address] | | | [place] [address] | + + + | Home Phone [...] Providers + +------+ + | Care Sales Assistant Name | Role | Phone | [...] | | | | [address] | [place] [address] | | | | | [place], [place] | [phone] | | | | | [address] | | | | | | [phone] | | | +--------+ + + + [...] | | | | | [place] [address] | | | | | | [phone] | | | | | | | | | | | | Julia Fisher, | | | | | | PT | | +--------+ + + + + | 02/18/ | Appointment | Rehabilitation | Erika Ernst, | | | 2019 | | | DO [address] | | | | | | [place] [address] | | | | | | [phone] | | | | | | | | | | | | Genesis Ayon, SUSAN | | +--------+ + + + + | 02/25/ | Office | Primary Care | Erika Ernst, | | | 2019 | Visit | | DO [address] [place] [address] | | | | | | [place] [address] | | | | | | [phone] | | | | | | | [...] | | | | | [place] [address] | | | | | | [phone] | | | | | | | | +--------+ + + + + | 02/27/ | Appointment | Radiology | Dhara, | | | 2019 | | | [address] | | | | | | [address] [place], | | | | | | [place] [address] | | | | | | [phone] | | | | | | | | +--------+ + + + + | 03/04/ | Appointment | Rehabilitation | Genesis Ayon OT | | | 2019 | | | | | +--------+ + + + + | 03/09/ | Office | Orthopedic Surgery | Jeffrey Gandhi, | | 2019 | Visit | | [address] | | | | | | [place] [address] | | | | | | [phone] | | | | | | | [...] [place] | | | | | | [address] | | | | | | [phone] | | | | | | | [...] | | | | | [place] [address] | | | | | | [phone] | | | | | | | | | | | | Azul Yeboah, | | | | | | MD [address] | | | | | | [place] | | | | | | [place] [address] | | | | | | [phone] | | | | | | | [...] | | | | | | [place] [address] | | | | | | [phone] | | | | | | | [...]
--- OUTSIDE RECORDS SUMMARY | ~2020-02-18 | XMS | Encounter Summary ---
Demographics + + + | Address | [address] | | | [place] [address] | + + + | Home Phone [...] Providers + +------+ + | Care Supervisor Customer Records Division Name | Role | Phone | + [...] [place] [facility] | Anastasia Alberto, | Results ([facility] to | | 2019 | | [facility] | [facility] [address] [facility] | [place], phone vm is | | | | [facility] [address] | [place] [address] | clear now, please | | | | [address] [place], | [phone] | call again) | | | | [place] [address] | | | | | | [phone] | | | +--------+ + + + [...] | | | | | [place] [address] | | | | | | [phone] | | | | | | | | | | | | Julia Fisher, | | | | | | PT | | +--------+ + + + + | 02/18/ | Appointment | Rehabilitation | Erika Ernst, | | | 2019 | | | DO [address] | | | | | | [place] [address] | | | | | | [phone] | | | | | | | | | | | | Genesis Ayon, OT | | +--------+ + + + + | 02/25/ | Office | Primary Care | Erika Ernst, | | | 2019 | Visit | | DO [address] | | | | | | [place] [address] | | | | | | [phone] | | | | | | | [...] | | | | | [place] [address] | | | | | | [phone] | | | | | | | | +--------+ + + + + | 02/27/ | Appointment | Radiology | Dhara, | | | 2019 | | | [address] | | | | | | [facility] [facility] | | | | | | [place] [address] | | | | | | [phone] | | | | | | | | +--------+ + + + + | 03/04/ | Appointment | Rehabilitation | Genesis Ayon OT | | | 2019 | | | | | +--------+ + + + + | 03/09/ | Office | Orthopedic Surgery | Jeffrey Gandhi, | | 2019 | Visit | | [address] | | | | | | [place] [address] | | | | | | [phone] | | | | | | | [...] [place] | | | | | | [address] | | | | | | [phone] | | | | | | | [...] | | | | | [place] [address] | | | | | | [phone] | | | | | | | | | | | | Azul Yeboah, | | | | | | [address] | | | | | | [place] | | | | | | [place] [address] | | | | | | [phone] | | | | | | | [...] | | | | | | [place] [address] | | | | | | [phone] | | | | | | | | +--------+ + + + + documented as of this encounter Visit Diagnoses Not on filedocumented in this encounter"
--- OUTSIDE RECORDS SUMMARY | ~2020-02-18 | XMS | Encounter Summary ---
Demographics + + + | Address | [address] | | | [place] [address] | + + + | Home Phone [...] Providers + +------+ + | Care Technical Data Analyst Name | Role | Phone | [...] [place] | | | | | [place] [address] | [address] | | | | | [phone] | [phone] | | | | | | | [...] | 2019 | | | DO [facility] | | | | | | [place] [address] | | | | | | [phone] | | | | | | | | | | | | Julia Fisher, | | | | | | PT | | +--------+ + + + + | 02/18/ | Appointment | Rehabilitation | Erika Ernst, | | | 2019 | | | DO [address] | | | | | | [place] [address] | | | | | | [phone] | | | | | | | | | | | | Genesis Ayon OT | | +--------+ + + + + | 02/25/ | Office | Primary Care | Erika Ernst, | | | 2019 | Visit | | DO [address] | | | | | | [place] [address] | | | | | | [phone] | | | | | | | [...] | | | | | [place] [address] | | | | | | [phone] | | | | | | | | +--------+ + + + + | 02/27/ | Appointment | Radiology | Dhara, | | | 2019 | | | [address] | | | | | | [address] [facility], | | | | | | [place] [address] | | | | | | [phone] | | | | | | | | +--------+ + + + + | 03/04/ | Appointment | Rehabilitation | Genesis Ayon OT | | | 2019 | | | | | +--------+ + + + + | 03/09/ | Office | Orthopedic Surgery | Jeffrey Gandhi, | | | 2019 | Visit | | [address] | | | | | | [place] [address] | | | | | | [phone] | | | | | | | [...] [place] | | | | | | [address] | | | | | | [phone] | | | | | | | [...] | | | | | [place] [address] | | | | | | [phone] | | | | | | | | | | | | Azul Yeboah, | | | | | | MD [address] | | | | | | [place] | | | | | | [place] [address] | | | | | | [phone] | | | | | | | [...] | | | | | | [place] [address] | | | | | | [phone] | | | | | | | | +--------+ + + + + documented as of this encounter Visit Diagnoses Not on filedocumented in this encounter"
--- OUTSIDE RECORDS SUMMARY | ~2020-02-18 | XMS | Encounter Summary ---
Demographics + + + | Address | [address] | | | [place] [address] | + + + | Home Phone [...] Providers + +------+ + | Care Research Program Intern Name | Role | Phone | [...] | | | tic stress | [place] [address] | [address] | | | | | disorder) | Phone: | [place], [place] | | | | | Reactive | [phone] | [address] | | | | | depression | Fax: | Phone: | | | | | | [phone] | [phone] | | | | | | | Fax: | | | | | | | [phone] | + + + + + + + Reason for Visit + + + | Reason | Comments | + + + | Follow-up | dizzy light headed | + + + Encounter Details +--------+---------+ + + + | Date | Type | Department | Care Team | Description | +--------+---------+ + + + | 10/24/ | Office | [facility] | Erkia Ernst, | Dizziness (Primary | | 2020 | Visit | [facility] | DO [address] | Dx); Essential | | | | [facility] | [place] [address] | hypertension; | | | [address] [place], | [phone] | Acquired | | | | [place] [address] | | hypothyroidism; | | | | [phone] | | Vitamin D | | | [...] was normal. She th en went to [facility] because she was worried. The indicated it [...] . Today states she will try the [employer] and we will make referral. She would [...] mg 5 X a day. Referral to [facility]. Labs, TSH, vitamin D, CMP, CBC documented [...] | | | | | [place] [address] | | | | | | [phone] | | | | | | | | | | | | Julia Fisher, | | | | | | PT | | +--------+ + + + + | 02/18/ | Appointment | Rehabilitation | Erika Ernst, | | 2019 | | | DO [address] | | | | | | [place] [address] | | | | | | [phone] | | | | | | | | | | | | Genesis Ayon, SUSAN | | +--------+ + + + + | 02/25/ | Office | Primary Care | Erika Ernst, | | | 2019 | Visit | | DO [address] [place] [address] | | | | | | [place] [address] | | | | | | [phone] | | | | | | | [...] | | | | | [place] [address] | | | | | | [phone] | | | | | | | | +--------+ + + + + | 02/27/ | Appointment | Radiology | Dhara, | | | 2019 | | | DWAINE Ross [address] [place], | | | | | | [place] [address] | | | | | | [phone] | | | | | | | | +--------+ + + + + | 03/04/ | Appointment | Rehabilitation | Genesis Ayon OT | | | 2019 | | | | | +--------+ + + + + | 03/09/ | Office | Orthopedic Surgery | Jeffrey Gandhi, | | | 2019 | Visit | | [address] | | | | | | [place] [address] | | | | | | [phone] | | | | | | | [...] [place] | | | | | | [address] | | | | | | [phone] | | | | | | | [...] | | | | | [place] [address] | | | | | | [phone] | | | | | | | | | | | | Azul Yeboah, | | | | | | MD [address] | | | | | | [address] [place] | | | | | | [place] [address] | | | | | | [phone] | | | | | | | [...] | | | | | | [place] [address] | | | | | | [phone] | | | | | | | [...] + + | [facility] | [address] | [place], [place] | [phone] | | [facility] | | [address] | | | [facility] | [...] + + | [facility] [facility] | [address] | [place] | [phone] | | [facility] | | [address] | | + + + + + [...] | mL/min/1.73m2 | [facility] | | | [facility] | R[facility],ESTIMATED | | [facility] | | | | mL/min/1.86i8Utdb than | | [facility] | | | [...] + + | [facility] | [address] | [place], [place] | [phone] | | [facility] | | [address] | | | [facility] | [...] | 0.00 | 0.00 - 0.70 | KOAT | | | Eosinophils | | K/uL [...] + + | [place] [facility] | [address] | [place] | [phone] | | [facility] | | [address] | | | [facility] | [...]
--- OUTSIDE RECORDS SUMMARY | ~2020-02-18 | XMS | Encounter Summary ---
Demographics + + + | Address | [address] | | | [place] [address] | + + + | Home Phone [...] Providers + +------+ + | Care Training Project Manager Name | Role | Phone [...] | | | | symptoms | [place] [address] | [address] Phone: | | | | | | Phone: | [phone] | | | | | | [phone] | Fax: | | | | | | Fax: | [phone] | | | | | | [phone] | | +--------+ + + + + [...] | | | [place], [place] | [address] | Dx) | | | | [address] | | | | | | [phone] | | | +--------+---------+ + + + [...] | : 1990 | Medical Record Number:[id number] | Author: Emily Mittal DPM | Date [...] hip and her ankle and also notified [facility] sical therapy that her knee recently started hurting. Patient is set to obtain her orthotics from [facility] in 2 weeks. Medications Current Outpatient Medications [...] mouth. Once a week Cholecalciferol (VITAMIN D3) 31013 units TABS Take 1 tablet by mouth [...] MOTOR/SENSORY NERVE CONDUCTION STUDIES REF AUTH REQUEST ([id number]) Treatment and Plan of Care In light of new onset symptoms I'm going to recommend an EMG/MCV for this patient In the meantime in order to make the patient more comfortable we've given crutches to her t o be nonweightbearing to her left side. Crutch training was performed by my certified medic al fast food sales assistant. Recommend ibuprofen when necessary pain and [...] and their vital signs recorded by my fast food sales assistant today, a s found in this chart note. Electronically signed by: Emily Mittal DPM 12/06/2018 at 15:36 Note: Part of this report was transcribed using voice recognition software. Every effort wa s made to ensure accuracy. However, inadvertent computerized net wpf developer errors may be pre sent. CC: [...] | | | | | [place] [address] | | | | | | [phone] | | | | | | | | | | | | Julia Fisher, | | | | | | PT | | +--------+ + + + + | 02/18/ | Appointment | Rehabilitation | Erika Ernst, | | 2019 | | | DO [address] [place] | | | | | | [place] [address] | | | | | | [phone] | | | | | | | | | | | | Genesis Ayon, SUSAN | | +--------+ + + + + | 02/25/ | Office | Primary Care | Erika Ernst, | | | 2019 | Visit | | DO [address] [place] [address] | | | | | | [place] [address] | | | | | | [phone] | | | | | | | [...] | | | | | [place] [address] | | | | | | [phone] | | | | | | | | +--------+ + + + + | 02/27/ | Appointment | Radiology | Dhara, | | | 2019 | | | [address] Ross [address] | | | | | | [address] [place], | | | | | | [place] [address] | | | | | | [phone] | | | | | | | [...] | | | | | | [place] [address] | | | | | | [phone] | | | | | | | [...] [place] | | | | | | [address] | | | | | | [phone] | | | | | | | [...] | | | | | [place] [address] | | | | | | [phone] | | | | | | | | | | | | Azul Yeboah, | | | | | | MD [address] | | | | | | [place] | | | | | | [place] [address] | | | | | | [phone] | | | | | | | [...] | | | | | | [place] [address] | | | | | | [phone] | | | | | | | [...] | | | symptoms | | | ([id number]) | | | | | + + +--------+ + + documented as of this encounter Visit Diagnoses + + | Diagnosis | + + | Radiculopathy with lower extremity symptoms - Primary | + + documented in this encounter
--- OUTSIDE RECORDS SUMMARY | ~2020-02-18 | XMS | Encounter Summary ---
Demographics + + + | Address | [address] | | | [place] [address] | + + + | Home Phone [...] | | | to excess | [place] [address] | | | | | | calories | Phone: | | | | | | without | [phone] | | | | | | serious | Fax: | | | | | | comorbidity | [phone] | | | | | | with [...] | SERVICES [address] | [place] [address] | malignant; Morbid | | | | DR [place], [place] | [phone] | obesity (HCC); Body | | | | [address] | | mass index | | | | [phone] | Janel Webster, | 50.0-59.9, adult | [...] increase to ~130g per day 2.) Calories 0934-5323 per day 3.) Keep regular meal schedule [...] | | | | | [place] [address] | | | | | | [phone] | | | | | | | | | | | | Julia Fisher, | | | | | | PT | | +--------+ + + + + | 02/18/ | Appointment | Rehabilitation | Erika Ernst, | | | 2019 | | | DO [address] [place] | | | | | | [place] [address] | | | | | | [phone] | | | | | | | | | | | | Genesis Ayon, OT | | +--------+ + + + + | 02/25/ | Office | Primary Care | Erika Ernst, | | | 2019 | Visit | | DO [address] [place] | | | | | | [place] [address] | | | | | | [phone] | | | | | | | [...] | | | | | [place] [address] | | | | | | [phone] | | | | | | | | +--------+ + + + + | 02/27/ | Appointment | Radiology | Dhara, | | | 2019 | | | [address] | | | | | | 4TH [facility], | | | | | | [place] [address] | | | | | | [phone] | | | | | | | | +--------+ + + + + | 03/04/ | Appointment | Rehabilitation | Genesis Ayon OT | | | 2019 | | | | | +--------+ + + + + | 03/09/ | Office | Orthopedic Surgery | Jeffrey Gandhi, | | | 2019 | Visit | | [address] | | | | | | [place] [address] | | | | | | [phone] | | | | | | | [...] [place] | | | | | | [address] | | | | | | [phone] | | | | | | | [...] | | | | | [place] [address] | | | | | | [phone] | | | | | | | | | | | | Azul Yeboah, | | | | | | MD [address] | | | | | | [place] | | | | | | [place] [address] | | | | | | [phone] | | | | | | | [...] | | | | | | [place] [address] | | | | | | [phone] | | | | | | | [...]
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
--- OUTSIDE RECORDS SUMMARY | ~2020-02-18 | XMS | Encounter Summary ---
Demographics + + + | Address | [address] | | | [place] [address] | + + + | Home Phone [...] Team Providers + +------+ + | Care Insole Buffer Name | Role | Phone | [...] Refill | | 2019 | | [facility] | DO [address] | Assistance | | | | MEDICAL [facility] [address] | [place] [address] | | | | | [address] [place], | [phone] | | | | | [place] [address] | | | | | | [phone] | | | +--------+ + + + [...] | | | | | [place] [address] | | | | | | [phone] | | | | | | | | | | | | Julia Fisher, | | | | | | PT | | +--------+ + + + + | 02/18/ | Appointment | Rehabilitation | Erika Ernst, | | | 2019 | | | DO [address] [place] | | | | | | [place] [address] | | | | | | [phone] | | | | | | | | | | | | Genesis Ayon OT | | +--------+ + + + + | 02/25/ | Office | Primary Care | Erika Ernst, | | | 2019 | Visit | | DO [address] [place] | | | | | | [place] [address] | | | | | | [phone] | | | | | | | [...] | | | | | [place] [address] | | | | | | [phone] | | | | | | | | +--------+ + + + + | 02/27/ | Appointment | Radiology | Dhara, | | | 2019 | | | [address] | | | | | | 4TH [facility], | | | | | | [place] [address] | | | | | | [phone] | | | | | | | | +--------+ + + + + | 03/04/ | Appointment | Rehabilitation | Genesis Ayon OT | | | 2019 | | | | | +--------+ + + + + | 03/09/ | Office | Orthopedic Surgery | Jeffrey Gandhi, | | 2019 | Visit | | [address] | | | | | | [place] [address] | | | | | | [phone] | | | | | | | [...] [place] | | | | | | [address] | | | | | | [phone] | | | | | | | [...] | | | | | [place] [address] | | | | | | [phone] | | | | | | | | | | | | Azul Yeboah, | | | | | | MD [address] | | | | | | [place] | | | | | | [place] [address] | | | | | | [phone] | | | | | | | [...] | | | | | | [place] [address] | | | | | | [phone] | | | | | | | | +--------+ + + + + documented as of this encounter Visit Diagnoses Not on filedocumented in this encounter"
--- OUTSIDE RECORDS SUMMARY | ~2020-02-18 | XMS | Encounter Summary ---
Demographics + + + | Address | [address] | | | [place] [address] | + + + | Home Phone [...] Providers + +------+ + | Care Hotel Or Motel Manager Name | Role | Phone | + +------+ + PCP | Unavailable | + +------+ + Encounter Details +--------+ + + + + | Date | Type | Department | Care Team | Description | +--------+ + + + + | 09/15/ | [facility] | [facility] | Erika Ernst, | | | 2014 | Encounter | [facility] | DO [address] | | | | | MEDICAL CLINIC [address] | [place] [address] | | | | | [address] [facility], | [phone] | | | | | [place] [address] | | | | | | [phone] | | | +--------+ + + + [...] | | | | | [place] [address] | | | | | | [phone] | | | | | | | | | | | | Julia Fisher, | | | | | | PT | | +--------+ + + + + | 02/18/ | Appointment | Rehabilitation | Erika Ernst, | | | 2019 | | | DO [address] [place] | | | | | | [place] [address] | | | | | | [phone] | | | | | | | | | | | | Genesis Ayon OT | | +--------+ + + + + | 02/25/ | Office | Primary Care | Erika Ernst, | | | 2019 | Visit | | DO [address] [place] | | | | | | [place] [address] | | | | | | [phone] | | | | | | | [...] | | | | | | [place] [address] | | | | | | [phone] | | | | | | | | +--------+ + + + + | 02/27/ | Appointment | Radiology | Dhara, | | | 2019 | | | [address] | | | | | | 4TH [facility], | | | | | | [place] [address] | | | | | | [phone] | | | | | | | [...] CENTER | | | | | | [place] [address] | | | | | | [phone] | | | | | | | [...] [place] | | | | | | [address] | | | | | | [phone] | | | | | | | [...] | | | | | [place] [address] | | | | | | [phone] | | | | | | | | | | | | Azul Yeboah, | | | | | | MD [address] | | | | | | [place] | | | | | | [place] [address] | | | | | | [phone] | | | | | | | [...] | | | | | | [place] [address] | | | | | | [phone] | | | | | | | | +--------+ + + + + documented as of this encounter Visit Diagnoses Not on filedocumented in this encounter"
--- OUTSIDE RECORDS SUMMARY | ~2020-02-18 | XMS | Encounter Summary ---
Demographics + + + | Address | [address] | | | [place] [address] | + + + | Home Phone [...] Providers + +------+ + | Care Clay Burner Name | Role | Phone | [...] [facility] [place] [address] | | | | | [address] [place], | [phone] | | | | | [place] [address] | | | | | | [phone] | | | +--------+ + + + [...] | | | | | [place], [place] [address] | | | | | | [phone] | | | | | | | | | | | | Julia Fisher, | | | | | | PT | | +--------+ + + + + | 02/18/ | Appointment | Rehabilitation | Erika Ernst, | | | 2019 | | | DO [address] [place] | | | | | | [place] [address] | | | | | | [phone] | | | | | | | | | | | | Genesis Ayon OT | | +--------+ + + + + | 02/25/ | Office | Primary Care | Erika Ernst, | | | 2019 | Visit | | DO [address] [place] | | | | | | [place] [address] | | | | | | [phone] | | | | | | | [...] | | | | | [place] [address] | | | | | | [phone] | | | | | | | | +--------+ + + + + | 02/27/ | Appointment | Radiology | Dhara, | | | 2019 | | | [address] | | | | | | 4TH [facility], | | | | | | [place] [address] | | | | | | [phone] | | | | | | | | +--------+ + + + + | 03/04/ | Appointment | Rehabilitation | Genesis Ayon OT | | | 2019 | | | | | +--------+ + + + + | 03/09/ | Office | Orthopedic Surgery | Jeffrey Gandhi, | | | 2019 | Visit | | MD [address] [facility] | | | | | | [place] [address] | | | | | | [phone] | | | | | | | [...] [place] | | | | | | [address] | | | | | | [phone] | | | | | | | [...] | | | | | [place] [address] | | | | | | [phone] | | | | | | | | | | | | Azul Yeboah, | | | | | | MD [address] | | | | | | [place] | | | | | | [place] [address] | | | | | | [phone] | | | | | | | [...] | | | | | | [place] [address] | | | | | | [phone] | | | | | | | | +--------+ + + + + documented as of this encounter Visit Diagnoses Not on filedocumented in this encounter"
--- OUTSIDE RECORDS SUMMARY | ~2020-02-18 | XMS | Encounter Summary ---
Demographics + + + | Address | [address] | | | [place] [address] | + + + | Home Phone [...] Providers + +------+ + | Care Gate Guard Name | Role | Phone | [...] | | | 2018 | Support | [facility] | DO [address] | | | | | MEDICAL CLINIC [address] | [place] [address] | | | | | [address] [place], | [phone] | | | | | [place] [address] | | | | | | [phone] | | | +--------+ + + + [...] | | | | | [place] [address] | | | | | | [phone] | | | | | | | | | | | | Julia Fisher, | | | | | | PT | | +--------+ + + + + | 02/18/ | Appointment | Rehabilitation | Erika Ernst, | | | 2019 | | | DO [address] [place] | | | | | | [place] [address] | | | | | | [phone] | | | | | | | | | | | | Genesis Ayon, OT | | +--------+ + + + + | 02/25/ | Office | Primary Care | Erika Ernst, | | | 2019 | Visit | | DO [address] [place] | | | | | | [place] [address] | | | | | | [phone] | | | | | | | [...] | | | | | [place] [address] | | | | | | [phone] | | | | | | | | +--------+ + + + + | 02/27/ | Appointment | Radiology | Dhara, | | | 2019 | | | [address] | | | | | | [address] [place], | | | | | | [place] [address] | | | | | | [phone] | | | | | | | | +--------+ + + + + | 03/04/ | Appointment | Rehabilitation | Genesis Ayon OT | | 2019 | | | | | +--------+ + + + + | 03/09/ | Office | Orthopedic Surgery | Jeffrey Gandhi, | | | 2019 | Visit | | [address] [facility] | | | | | | [place] [address] | | | | | | [phone] | | | | | | | [...] [place] | | | | | | [address] | | | | | | [phone] | | | | | | | [...] | | | | | [place] [address] | | | | | | [phone] | | | | | | | | | | | | Azul Yeboah, | | | | | | [address] | | | | | | [place] | | | | | | [place] [address] | | | | | | [phone] | | | | | | | [...] | | | | | | [place] [address] | | | | | | [phone] | | | | | | | | +--------+ + + + + documented as of this encounter Visit Diagnoses Not on filedocumented in this encounter"
--- OUTSIDE RECORDS SUMMARY | ~2020-02-18 | XMS | Encounter Summary ---
Demographics + + + | Address | [address] | | | [place] [address] | + + + | Home Phone [...] Providers + +------+ + | Care Coin Rolling Machine Operator Name | Role | Phone [...] | | | | | | DE REPR | | | | | | | FOREARM | | | | | | | TEND/MUSC,EX | | | | | | | TEN,PRIM,EA | | | | | | | DE REPR | | | | | | | FOREARM | | | | | | | TEND/MUSC,EX | | | | | | | TEN,SECOND | | | | | | | DE REPR | | | | | | [...] | | [place] | [place] [address] | | | | | [address] | [phone] | | | | | [phone] | | | +--------+---------+ + + + [...] number, which will transfer you to the [facility] service at the hospital and ask for the non destructive testing inspector orthopedic provider. Be sure to mention t hat you've had surgery recently. AttachmentsThe following attachments cannot be sent through Care Everywhere.After Your Surg matt: Discharge Instructions (Bengali)documented in this encounter Medications at Time of [...] | 02/29/20 | | | (VITAMIN D3) [address] | mouth Once a week | tablet [...] 2020 | | | DO [address] | | | | | | [place] [address] | | | | | | [phone] | | | | | | | | | | | | Julia Fisher, | | | | | | PT | | +--------+ + + + + | 02/18/ | Appointment | Rehabilitation | Erika Ernst, | | | 2019 | | | DO [address] [place] | | | | | | [place] [address] | | | | | | [phone] | | | | | | | | | | | | Genesis Ayon OT | | +--------+ + + + + | 02/25/ | Office | Primary Care | Erika Ernst, | | | 2019 | Visit | | DO [address] [place] | | | | | | [place] [address] | | | | | | [phone] | | | | | | | [...] | | | | | [place] [address] | | | | | | [phone] | | | | | | | | +--------+ + + + + | 02/27/ | Appointment | Radiology | Dhara, | | | 2019 | | | [address] | | | | | | [address] [place], | | | | | | [place] [address] | | | | | | [phone] | | | | | | | [...] | | | | [place] [address] | | | | | | [phone] | | | | | | | [...] [place] | | | | | | [address] | | | | | | [phone] | | | | | | | [...] | | | | | [place] [address] | | | | | | [phone] | | | | | | | | | | | | Azul Yeboah, | | | | | | MD [address] | | | | | | [place] | | | | | | [place] [address] | | | | | | [phone] | | | | | | | [...] | | | | | | [place] [address] | | | | | | [phone] | | | | | | | [...] + + | [place] [facility] | [address] | [place] | [phone] | | [facility] | | [address] | | + + + + + [...]
--- OUTSIDE RECORDS SUMMARY | ~2020-02-18 | XMS | Encounter Summary ---
Demographics + + + | Address | [address] | | | [place] [address] | + + + | Home Phone [...] Team Providers + +------+ + | Care Legislative Aide Name | Role | Phone | [...] [address] | [facility] [place] [address] | | | | | [address] [place], | [phone] | | | | | [place] [address] | | | | | | [phone] | | | +--------+ + + + [...] | | | | | [place] [address] | | | | | | [phone] | | | | | | | | | | | | Julia Fisher, | | | | | | PT | | +--------+ + + + + | 02/18/ | Appointment | Rehabilitation | Erika Ernst, | | | 2019 | | | DO [address] [place] | | | | | | [place] [address] | | | | | | [phone] | | | | | | | | | | | | Genesis Ayon OT | | +--------+ + + + + | 02/25/ | Office | Primary Care | Erika Ernst, | | | 2019 | Visit | | DO [address] [place] | | | | | | [place] [address] | | | | | | [phone] | | | | | | | [...] [place] | | | | | | [place] [address] | | | | | | [phone] | | | | | | | | +--------+ + + + + | 02/27/ | Appointment | Radiology | Dhara, | | | 2019 | | | [address] | | | | | | 4TH [facility], | | | | | | [place] [address] | | | | | | [phone] | | | | | | | [...] | | | | | | [place] [address] | | | | | | [phone] | | | | | | | [...] [place] | | | | | | [address] | | | | | | [phone] | | | | | | | [...] | | | | | [place] [address] | | | | | | [phone] | | | | | | | | | | | | Azul Yeboah, | | | | | | [address] | | | | | | [place] | | | | | | [place] [address] | | | | | | [phone] | | | | | | | [...] | | | | | | [place] [address] | | | | | | [phone] | | | | | | | | +--------+ + + + + documented as of this encounter Visit Diagnoses Not on filedocumented in this encounter"
--- OUTSIDE RECORDS SUMMARY | ~2020-02-18 | XMS | Encounter Summary ---
Demographics + + + | Address | [address] | | | [place] [address] | + + + | Home Phone [...] Providers + +------+ + | Care Surgical Consultant Name | Role | Phone | + +------+ + PCP | Unavailable | + +------+ + Encounter Details +--------+ + + + + | Date | Type | Department | Care Team | Description | +--------+ + + + + | 06/02/ | [facility] | [facility] | Amaya Varner NP | | | 2016 | Encounter | [facility] | [address] | | | | | MEDICAL CLINIC [address] | [place], [place] | | | | | [address] [place], | [address] | | | | | [place] [address] | [phone] | | | | | [phone] | | | +--------+ + + + [...] | | 2020 | | | DO [facility] | | | | | | [place], [place] [address] | | | | | | [phone] | | | | | | | | | | | | Julia Fisher, | | | | | | PT | | +--------+ + + + + | 02/18/ | Appointment | Rehabilitation | Erika Ernst, | | | 2019 | | | DO [address] [place] | | | | | | [place] [address] | | | | | | [phone] | | | | | | | | | | | | Genesis Ayon, SUSAN | | +--------+ + + + + | 02/25/ | Office | Primary Care | Erika Ernst, | | | 2019 | Visit | | DO [address] [place] | | | | | | [place] [address] | | | | | | [phone] | | | | | | | [...] | | | | | [place] [address] | | | | | | [phone] | | | | | | | | +--------+ + + + + | 02/27/ | Appointment | Radiology | Dhara, | | | 2019 | | | DWAINE Ross [address] | | | | | [address] [facility] [place], | | | | | | [place] [address] | | | | | | [phone] | | | | | | | [...] | | | | | [place] [address] | | | | | | [phone] | | | | | | | [...] [place] | | | | | | [address] | | | | | | [phone] | | | | | | | [...] | | | | | [place] [address] | | | | | | [phone] | | | | | | | | | | | | Azul Yeboah, | | | | | | MD [address] | | | | | | [address] [place] | | | | | | [place] [address] | | | | | | [phone] | | | | | | | [...] | | | | | | [place] [address] | | | | | | [phone] | | | | | | | | +--------+ + + + + documented as of this encounter Visit Diagnoses Not on filedocumented in this encounter"
--- OUTSIDE RECORDS SUMMARY | ~2020-02-18 | XMS | Encounter Summary ---
Demographics + + + | Address | [address] | | | [place] [address] | + + + | Home Phone [...] Providers + +------+ + | Care Cosmetic Counselor Name | Role | Phone | [...] [facility] | [place] [address] | | | | | [address] [facility], | [phone] | | | | | [place] [address] | | | | | | [phone] | | | +--------+ + + + [...] | | | | | [place] [address] | | | | | | [phone] | | | | | | | | | | | | Julia Fisher, | | | | | | PT | | +--------+ + + + + | 02/18/ | Appointment | Rehabilitation | Erika Ernst, | | | 2019 | | | DO [address] | | | | | | [place] [address] | | | | | | [phone] | | | | | | | | | | | | Genesis Ayon OT | | +--------+ + + + + | 02/25/ | Office | Primary Care | Erika Ernst, | | | 2019 | Visit | | DO [address] | | | | | | [place] [address] | | | | | | [phone] | | | | | | | [...] | | | | | | [place] [address] | | | | | | [phone] | | | | | | | | +--------+ + + + + | 02/27/ | Appointment | Radiology | Dhara, | | | 2019 | | | [address] | | | | | | 4TH [facility], | | | | | | [place] [address] | | | | | | [phone] | | | | | | | | +--------+ + + + + | 03/04/ | Appointment | Rehabilitation | Genesis Ayon OT | | | 2019 | | | | | +--------+ + + + + | 03/09/ | Office | Orthopedic Surgery | Jeffrey Gandhi, | | 2019 | Visit | | [address] | | | | | | [place] [address] | | | | | | [phone] | | | | | | | [...] [place] | | | | | | [address] | | | | | | [phone] | | | | | | | [...] | | | | | [place] [address] | | | | | | [phone] | | | | | | | | | | | | Azul Yeboah, | | | | | | MD [address] | | | | | | [place] | | | | | | [place] [address] | | | | | | [phone] | | | | | | | [...] | | | | | | [place] [address] | | | | | | [phone] | | | | | | | | +--------+ + + + + documented as of this encounter Visit Diagnoses Not on filedocumented in this encounter"
--- OUTSIDE RECORDS SUMMARY | ~2020-02-18 | XMS | Encounter Summary ---
Demographics + + + | Address | [address] | | | [place] [address] | + + + | Home Phone [...] Providers + +------+ + | Care Non Licensed Nuclear Plant Operator Name | Role | Phone [...] | [facility] | [place] [address] | (Primary Dx); | | | | [address] [place], | [phone] | Vitamin D deficiency | | | | [place] [address] | | | | | | [phone] | | | +--------+---------+ + + + [...] PM 90 tablet 5 Cholecalciferol (VITAMIN D3) 87020 units TABS Take 1 tablet by mouth [...] | 2019 | | | DO [address] | | | | | | [facility] [place] [address] | | | | | | [phone] | | | | | | | | | | | | Julia Fisher, | | | | | | PT | | +--------+ + + + + | 05/20/ | Appointment | Rehabilitation | Erika Ernst, | | | 2019 | | | DO [address] | | | | | | [place] [address] | | | | | | [phone] | | | | | | | | | | | | Genesis Ayon OT | | +--------+ + + + + | 02/25/ | Office | Primary Care | Erika Ernst, | | | 2019 | Visit | | DO [address] | | | | | | [place] [address] | | | | | | [phone] | | | | | | | [...] | | | | | [place] [address] | | | | | | [phone] | | | | | | | | +--------+ + + + + | 02/27/ | Appointment | Radiology | Dhara, | | | 2019 | | | [address] | | | | | | 4TH [facility] [place], | | | | | | [place] [address] | | | | | | [phone] | | | | | | | [...] | | | | | [place] [address] | | | | | | [phone] | | | | | | | [...] [place] | | | | | | [address] | | | | | | [phone] | | | | | | | [...] | | | | | [place] [address] | | | | | | [phone] | | | | | | | | | | | | Azul Yeboah, | | | | | | MD [address] | | | | | | [place] | | | | | | [place] [address] | | | | | | [phone] | | | | | | | [...] | | | | | | [place] [address] | | | | | | [phone] | | | | | | | [...] + + | [place] [facility] | [address] | [place] | [phone] | | [facility] | | [address] | | + + + + + [...] + + | [place] [facility] | [address] | [place] | [phone] | | H[facility]ITAL [facility] | | [address] | | + + + + + documented in this encounter Visit Diagnoses + + | Diagnosis | + + | Acquired hypothyroidism - Primary Unspecified hypothyroidism | + + | Vitamin D deficiency Unspecified vitamin D deficiency | + + documented in this encounter
--- OUTSIDE RECORDS SUMMARY | ~2020-02-18 | XMS | Encounter Summary ---
Demographics + + + | Address | [address] | | | [place] [address] | + + + | Home Phone [...] Providers + +------+ + | Care Criminal Defense Lawyer Name | Role | Phone | + [...] Medication Related | | 2019 | | [facility] | [address] | (Medication possible | | | | MEDICAL CL[facility] [address] [place] [address] | making BP to | | | | [address] [place], | [phone] | increase) | | | | [place] [address] | | | | | | [phone] | | | +--------+ + + + [...] | | | | | [place] [address] | | | | | | [phone] | | | | | | | | | | | | Julia Fisher, | | | | | | PT | | +--------+ + + + + | 02/18/ | Appointment | Rehabilitation | Erika Ernst, | | | 2019 | | | DO [address] | | | | | | [place] [address] | | | | | | [phone] | | | | | | | | | | | | Genesis Ayon OT | | +--------+ + + + + | 02/25/ | Office | Primary Care | Erika Ernst, | | | 2019 | Visit | | DO [address] | | | | | | [place] [address] | | | | | | [phone] | | | | | | | [...] | | | | | [place] [address] | | | | | | [phone] | | | | | | | | +--------+ + + + + | 02/27/ | Appointment | Radiology | Dhara, | | | 2019 | | | [address] | | | | | | [address] [place], | | | | | | [place] [address] | | | | | | [phone] | | | | | | | | +--------+ + + + + | 03/04/ | Appointment | Rehabilitation | Genesis Ayon OT | | | 2019 | | | | | +--------+ + + + + | 03/09/ | Office | Orthopedic Surgery | Jeffrey Gandhi, | | | 2019 | Visit | | [address] | | | | | | [place] [address] | | | | | | [phone] | | | | | | | [...] [place] | | | | | | [address] | | | | | | [phone] | | | | | | | [...] | | | | | [place] [address] | | | | | | [phone] | | | | | | | | | | | | Azul Yeboah, | | | | | | MD [address] | | | | | | [place] | | | | | | [place] [address] | | | | | | [phone] | | | | | | | [...] | | | | | | [place] [address] | | | | | | [phone] | | | | | | | | +--------+ + + + + documented as of this encounter Visit Diagnoses Not on filedocumented in this encounter"
--- OUTSIDE RECORDS SUMMARY | ~2020-02-18 | XMS | Encounter Summary ---
Demographics + + + | Address | [address] | | | [place] [address] | + + + | Home Phone [...] non-recurrent | | 2020 | Visit | [facility] | DWAINE Huynh | pansinusitis | | | | [facility] [address] | [address] [facility] | (Primary Dx); | | | | 4TH [facility], | [place] [address] | Antibiotic-induced | | | | [place] [address] | [phone] | yeast infection | | | | [phone] | | | +--------+---------+ + + + [...] water gargles ? Intranasal steroid such as smoq-yte-vyqjpzy generic Flonase or Nasonex to help decrease [...] Illness: Andrea presents to the [facility] for the following concern(s): Cold-like symptoms Onset: [...] humidifie r With minimal improvement. Last fever bookkeeping machine operator: 1 day ago Patient had influenza testing that was negative on 09/27/19. She was evaluated by [facility] Dr. Mckeon on 09/29/19 and on Cipro [...] made to ensure accuracy. However, inadvertent computerized educational guidance counselor errors may be pre sent. David mented [...] | | | | | [place] [address] | | | | | | [phone] | | | | | | | | | | | | Julia Fisher, | | | | | | PT | | +--------+ + + + + | 02/18/ | Appointment | Rehabilitation | Erika Ernst, | | | 2019 | | | DO [address] | | | | | | [place] [address] | | | | | | [phone] | | | | | | | | | | | | Genesis Ayon, OT | | +--------+ + + + + | 02/25/ | Office | Primary Care | Erika Ernst, | | | 2019 | Visit | | DO [address] | | | | | | [place] [address] | | | | | | [phone] | | | | | | | [...] | | | | | [place] [address] | | | | | | [phone] | | | | | | | | +--------+ + + + + | 02/27/ | Appointment | Radiology | Dhara, | | | 2019 | | | [address] | | | | | | 4TH [facility], | | | | | | [place] [address] | | | | | | [phone] | | | | | | | | +--------+ + + + + | 03/04/ | Appointment | Rehabilitation | Genesis Ayon OT | | | 2019 | | | | | +--------+ + + + + | 03/09/ | Office | Orthopedic Surgery | Jeffrey Gandhi, | | 2019 | Visit | | [address] | | | | | | [place] [address] | | | | | | [phone] | | | | | | | [...] [place] | | | | | | [address] | | | | | | [phone] | | | | | | | [...] | | | | | [place] [address] | | | | | | [phone] | | | | | | | | | | | | Azul Yeboah, | | | | | | MD [address] | | | | | | [place] | | | | | | [place] [address] | | | | | | [phone] | | | | | | | [...] | | | | | | [place] [address] | | | | | | [phone] | | | | | | | | +--------+ + + + + documented as of this encounter Visit Diagnoses + + | Diagnosis | + + | Acute non-recurrent pansinusitis - Primary | + + | Antibiotic-induced yeast infection | + + documented in this encounter
--- OUTSIDE RECORDS SUMMARY | ~2020-02-18 | XMS | Encounter Summary ---
Demographics + + + | Address | [address] | | | [place] [address] | + + + | Home Phone [...] Team Providers + +------+ + | Care Refrigeration Systems Installer Name | Role | Phone | [...] | DO [address] | questions covid-19) | | | | [facility] | [place] [address] | | | | | [address] [place], | [phone] | | | | | [place] [address] | | | | | | [phone] | | | +--------+ + + + [...] | | | | | [place] [address] | | | | | | [phone] | | | | | | | | | | | | Julia Fisher, | | | | | | PT | | +--------+ + + + + | 02/18/ | Appointment | Rehabilitation | Erika Ernst, | | | 2019 | | | DO [address] | | | | | | [place] [address] | | | | | | [phone] | | | | | | | | | | | | Genesis Ayon, OT | | +--------+ + + + + | 02/25/ | Office | Primary Care | Erika Ernst, | | | 2019 | Visit | | DO [address] | | | | | | [place] [address] | | | | | | [phone] | | | | | | | [...] | | | | | [place] [address] | | | | | | [phone] | | | | | | | | +--------+ + + + + | 02/27/ | Appointment | Radiology | Dhara, | | | 2019 | | | [address] | | | | | | [address]TH [place], | | | | | | [place] [address] | | | | | | [phone] | | | | | | | | +--------+ + + + + | 03/04/ | Appointment | Rehabilitation | Genesis Ayon OT | | 2019 | | | | | +--------+ + + + + | 03/09/ | Office | Orthopedic Surgery | Jeffrey Gandhi, | | | 2019 | Visit | | [address] | | | | | | [place] [address] | | | | | | [phone] | | | | | | | [...] [place] | | | | | | [address] | | | | | | [phone] | | | | | | | [...] | | | | | [place] [address] | | | | | | [phone] | | | | | | | | | | | | Azul Yeboah, | | | | | | MD [address] | | | | | | [place] | | | | | | [place] [address] | | | | | | [phone] | | | | | | | [...] | | | | | | [place] [address] | | | | | | [phone] | | | | | | | | +--------+ + + + + documented as of this encounter Visit Diagnoses Not on filedocumented in this encounter"
--- OUTSIDE RECORDS SUMMARY | ~2020-02-18 | XMS | Encounter Summary ---
Demographics + + + | Address | [address] | | | [place] [address] | + + + | Home Phone [...] Providers + +------+ + | Care Collar Folder Operator Name | Role | Phone | [...] LABS | | 2019 | | [facility] | DO [address] | | | | | MEDICAL [facility] [address] | [place] [address] | | | | | [address] [place], | [phone] | | | | | [place] [address] | | | | | | [phone] | | | +--------+ + + + [...] | | | | | [place] [address] | | | | | | [phone] | | | | | | | | | | | | Julia Fisher, | | | | | | PT | | +--------+ + + + + | 02/18/ | Appointment | Rehabilitation | Erika Ernst, | | | 2019 | | | DO [address] | | | | | | [place] [address] | | | | | | [phone] | | | | | | | | | | | | Genesis Ayon OT | | +--------+ + + + + | 02/25/ | Office | Primary Care | Erika Ernst, | | | 2019 | Visit | | DO [address] | | | | | | [place] [address] | | | | | | [phone] | | | | | | | [...] | | | | | [place] [address] | | | | | | [phone] | | | | | | | | +--------+ + + + + | 02/27/ | Appointment | Radiology | Dhara, | | | 2019 | | | [address] | | | | | | 4TH [facility], | | | | | | [place] [address] | | | | | | [phone] | | | | | | | [...] [place] | | | | | | [place] [address] | | | | | | [phone] | | | | | | | [...] [place] | | | | | | [address] | | | | | | [phone] | | | | | | | [...] | | | | | [place] [address] | | | | | | [phone] | | | | | | | | | | | | Azul Yeboah, | | | | | | MD [address] | | | | | | [place] | | | | | | [place] [address] | | | | | | [phone] | | | | | | | [...] | | | | | | [place] [address] | | | | | | [phone] | | | | | | | | +--------+ + + + + documented as of this encounter Visit Diagnoses Not on filedocumented in this encounter"
--- OUTSIDE RECORDS SUMMARY | ~2020-02-18 | XMS | Encounter Summary ---
Demographics + + + | Address | [address] | | | [place] [address] | + + + | Home Phone [...] Team Providers + +------+ + | Care Airframe Design Engineer Name | Role | Phone | + +------+ + PCP | Unavailable | + +------+ + Encounter Details +--------+ + + + + | Date | Type | Department | Care Team | Description | +--------+ + + + + | 08/31/ | [facility] [place] | Denise Mcgregor | | | 2016 | Encounter | [facility] | G, ACCREDITATION COORDINATOR | | | | | [facility] [address] | | | | | | [address] [facility] [place], | | | | | | [place] [address] | | | | | | [phone] | | | +--------+ + + + [...] | | | | | [place] [address] | | | | | | [phone] | | | | | | | | | | | | Julia Fisher, | | | | | | PT | | +--------+ + + + + | 02/18/ | Appointment | Rehabilitation | Erika Ernst, | | 2019 | | | DO [address] | | | | | | [place] [address] | | | | | | [phone] | | | | | | | | | | | | Genesis Ayon, SUSAN | | +--------+ + + + + | 02/25/ | Office | Primary Care | Erika Ernst, | | | 2019 | Visit | | DO [address] [place] [address] | | | | | | [place] [address] | | | | | | [phone] | | | | | | | [...] | | | | | [place] [address] | | | | | | [phone] | | | | | | | | +--------+ + + + + | 02/27/ | Appointment | Radiology | Dhara, | | | 2019 | | | [address] | | | | | | [address] [place], | | | | | | [place] [address] | | | | | | [phone] | | | | | | | [...] | | | | | [place] [address] | | | | | | [phone] | | | | | | | [...] [place] | | | | | | [address] | | | | | | [phone] | | | | | | | [...] | | | | | [place] [address] | | | | | | [phone] | | | | | | | | | | | | Azul Yeboah, | | | | | | MD [address] | | | | | | [place] | | | | | | [place] [address] | | | | | | [phone] | | | | | | | [...] | | | | | | [place] [address] | | | | | | [phone] | | | | | | | | +--------+ + + + + documented as of this encounter Visit Diagnoses Not on filedocumented in this encounter"
--- OUTSIDE RECORDS SUMMARY | ~2020-02-18 | XMS | Encounter Summary ---
Demographics + + + | Address | [address] | | | [place] [address] | + + + | Home Phone [...] Providers + +------+ + | Care Logging Equipment Operator Name | Role | Phone [...] | | | [place], [place] | [address] | | | | | [address] | [phone] | | | | | [phone] | | | +--------+ + + + [...] | | | | | [place] [address] | | | | | | [phone] | | | | | | | | | | | | Julia Fisher, | | | | | | PT | | +--------+ + + + + | 02/18/ | Appointment | Rehabilitation | Erika Ernst, | | | 2019 | | | DO [address] | | | | | | [place] [address] | | | | | | [phone] | | | | | | | | | | | | Genesis Ayon, OT | | +--------+ + + + + | 02/25/ | Office | Primary Care | Erika Ernst, | | | 2019 | Visit | | DO [address] | | | | | | [place] [address] | | | | | | [phone] | | | | | | | [...] | | | | | [place] [address] | | | | | | [phone] | | | | | | | | +--------+ + + + + | 02/27/ | Appointment | Radiology | Dhara, | | | 2019 | | | [address] | | | | | | 4TH [facility], | | | | | | [place] [address] | | | | | | [phone] | | | | | | | | +--------+ + + + + | 03/04/ | Appointment | Rehabilitation | Genesis Ayon OT | | | 2019 | | | | | +--------+ + + + + | 03/09/ | Office | Orthopedic Surgery | Jeffrey Gandhi, | | | 2019 | Visit | | [address] | | | | | | [place] [address] | | | | | | [phone] | | | | | | | [...] [place] | | | | | | [address] | | | | | | [phone] | | | | | | | [...] | | | | | [place] [address] | | | | | | [phone] | | | | | | | | | | | | Azul Yeboah, | | | | | | MD [address] | | | | | | [place] | | | | | | [place] [address] | | | | | | [phone] | | | | | | | [...] | | | | | | [place] [address] | | | | | | [phone] | | | | | | | | +--------+ + + + + documented as of this encounter Visit Diagnoses Not on filedocumented in this encounter"
--- OUTSIDE RECORDS SUMMARY | ~2020-02-18 | XMS | Encounter Summary ---
Demographics + + + | Address | [address] | | | [place] [address] | + + + | Home Phone [...] Team Providers + +------+ + | Care Scraper Operator Name | Role | Phone | + +------+ + PCP | Unavailable | + +------+ + Encounter Details +--------+ + + + + | Date | Type | Department | Care Team | Description | +--------+ + + + + | 01/18/ | [facility] | Spenser Roberts NP | | | 2015 | Encounter | [facility] | [address], | | | | | MEDICAL CL[facility] [address] | [place] [address] | | | | | [address] [facility], | [phone] | | | | | [place] [address] | | | | | | [phone] | | | +--------+ + + + [...] | | | | | [place] [address] | | | | | | [phone] | | | | | | | | | | | | Julia Fisher, | | | | | | PT | | +--------+ + + + + | 02/18/ | Appointment | Rehabilitation | Erika Ernst, | | | 2019 | | | DO [address] | | | | | | [place] [address] | | | | | | [phone] | | | | | | | | | | | | Genesis Ayon OT | | +--------+ + + + + | 02/25/ | Office | Primary Care | Erika Ernst, | | | 2019 | Visit | | DO [address] | | | | | | [place] [address] | | | | | | [phone] | | | | | | | [...] | | | | | [place] [address] | | | | | | [phone] | | | | | | | | +--------+ + + + + | 02/27/ | Appointment | Radiology | Dhara, | | | 2019 | | | [address] | | | | | | 4TH [facility], | | | | | | [place] [address] | | | | | | [phone] | | | | | | | | +--------+ + + + + | 03/04/ | Appointment | Rehabilitation | Genesis Ayon OT | | | 2019 | | | | | +--------+ + + + + | 03/09/ | Office | Orthopedic Surgery | Jeffrey Gandhi, | | 2019 | Visit | | [address] | | | | | | [place] [address] | | | | | | [phone] | | | | | | | [...] [place] | | | | | | [address] | | | | | | [phone] | | | | | | | [...] | | | | | [place] [address] | | | | | | [phone] | | | | | | | | | | | | Azul Yeboah, | | | | | | MD [address] | | | | | | [place] | | | | | | [place] [address] | | | | | | [phone] | | | | | | | [...] | | | | | | [place] [address] | | | | | | [phone] | | | | | | | | +--------+ + + + + documented as of this encounter Visit Diagnoses Not on filedocumented in this encounter"
--- OUTSIDE RECORDS SUMMARY | ~2020-02-18 | XMS | Encounter Summary ---
Demographics + + + | Address | [address] | | | [place] [address] | + + + | Home Phone [...] Providers + +------+ + | Care Detective Chief Name | Role | Phone | [...] | | [place] | [place] [address] | | | | | [address] | [phone] | | | | | [phone] | | | +--------+ + + + [...] | | | | | [place] [address] | | | | | | [phone] | | | | | | | | | | | | Julia Fisher, | | | | | | PT | | +--------+ + + + + | 02/18/ | Appointment | Rehabilitation | Erika Ernst, | | | 2019 | | | DO [address] | | | | | | [place] [address] | | | | | | [phone] | | | | | | | | | | | | Genesis Ayon OT | | +--------+ + + + + | 02/25/ | Office | Primary Care | Erika Ernst, | | | 2019 | Visit | | DO [address] | | | | | | [place] [address] | | | | | | [phone] | | | | | | | [...] | | | | | [place] [address] | | | | | | [phone] | | | | | | | | +--------+ + + + + | 02/27/ | Appointment | Radiology | Dhara, | | | 2019 | | | [address] | | | | | [address] [place], | | | | | | [place] [address] | | | | | | [phone] | | | | | | | | +--------+ + + + + | 03/04/ | Appointment | Rehabilitation | Genesis Ayon OT | | | 2019 | | | | | +--------+ + + + + | 03/09/ | Office | Orthopedic Surgery | Jeffrey Gandhi, | | | 2019 | Visit | | [address] [facility] | | | | | | [place] [address] | | | | | | [phone] | | | | | | | [...] [place] | | | | | | [address] | | | | | | [phone] | | | | | | | [...] | | | | | [place] [address] | | | | | | [phone] | | | | | | | | | | | | Azul Yeboah, | | | | | | [address] | | | | | | [place] | | | | | | [place] [address] | | | | | | [phone] | | | | | | | [...] | | | | | | [place] [address] | | | | | | [phone] | | | | | | | | +--------+ + + + + documented as of this encounter Visit Diagnoses + + | Diagnosis | + + | Post-op pain - Primary Other acute postoperative pain | + + documented in this encounter"
--- OUTSIDE RECORDS SUMMARY | ~2020-02-18 | XMS | Encounter Summary ---
Demographics + + + | Address | [address] | | | [place] [address] | + + + | Home Phone [...] Team Providers + +------+ + | Care Substation Designer Name | Role | Phone | [...] | | | | [place], [place] | [address] | allergic rhinitis | | | | [phone] | [phone] | due to pollen; | | | | [phone] | | Multiple thyroid | | | [...] Clinic Note For: Andrea Suh 29 y.o. [id number] On 11/28/2019, Andrea Suh was seen by [...] - Cyst contents and follicular cells seen ([place] category 2) (see Description) Current History of [...] | | | | | [place] [address] | | | | | | [phone] | | | | | | | | | | | | Julia Fisher, | | | | | | PT | | +--------+ + + + + | 02/18/ | Appointment | Rehabilitation | Erika Ernst, | | | 2019 | | | DO [address] | | | | | | [place] [address] | | | | | | [phone] | | | | | | | | | | | | Genesis Ayon, OT | | +--------+ + + + + | 02/25/ | Office | Primary Care | Erika Ernst, | | | 2019 | Visit | | DO [address] | | | | | | [place] [address] | | | | | | [phone] | | | | | | | [...] | | | | | [place] [address] | | | | | | [phone] | | | | | | | | +--------+ + + + + | 02/27/ | Appointment | Radiology | Dhara, | | | 2019 | | | [address]WA[address] | | | | | | [address] [facility], | | | | | | [place] [address] | | | | | | [phone] | | | | | | | | +--------+ + + + + | 03/04/ | Appointment | Rehabilitation | Genesis Ayon OT | | | 2019 | | | | | +--------+ + + + + | 03/09/ | Office | Orthopedic Surgery | Jeffrey Gandhi, | | | 2019 | Visit | | [address] | | | | | | [place] [address] | | | | | | [phone] | | | | | | | [...] [place] | | | | | | [address] | | | | | | [phone] | | | | | | | [...] | | | | | [place] [address] | | | | | | [phone] | | | | | | | | | | | | Azul Yeboah, | | | | | | MD [address] | | | | | | [place] | | | | | | [place] [address] | | | | | | [phone] | | | | | | | | +--------+ + + + + | 04/08/ | Appointment | Nutrition | Janel Webster | | | 2019 | | | [place], [place]HOA | | +--------+ + + + + | 05/21/ | Office | Neurology | Dhara, | | | 2019 | Visit | | [place], [address] | | | | | | [address] [facility] [place], | | | | | | [place] [address] | | | | | | [phone] | | | | | | | [...]
--- OUTSIDE RECORDS SUMMARY | ~2020-02-18 | XMS | Encounter Summary ---
Demographics + + + | Address | [address] | | | [place] [address] | + + + | Home Phone [...] Team Providers + +------+ + | Care Sexual Assault Counselor Name | Role | Phone | [...] | Injections | | 2019 | | [facility] | [address] | (information re: | | | | [facility] | [facility] [place] [address] | shingles injection); | | | | [facility], | [phone] | Injections | | | | [place] [address] | | | | | | [phone] | | | +--------+ + + + [...] | | | | | [place] [address] | | | | | | [phone] | | | | | | | | | | | | Julia Fisher, | | | | | | PT | | +--------+ + + + + | 02/18/ | Appointment | Rehabilitation | Erika Ernst, | | | 2019 | | | DO [address] [place] | | | | | | [place] [address] | | | | | | [phone] | | | | | | | | | | | | Genesis Ayon, OT | | +--------+ + + + + | 02/25/ | Office | Primary Care | Erika Ernst, | | | 2019 | Visit | | DO [address] | | | | | | [place] [address] | | | | | | [phone] | | | | | | | [...] | | | | | [place] [address] | | | | | | [phone] | | | | | | | | +--------+ + + + + | 02/27/ | Appointment | Radiology | Dhara | | | 2019 | | | [address] Ross [address] | | | | | [address] [place], | | | | | | [place] [address] | | | | | | [phone] | | | | | | | | +--------+ + + + + | 03/04/ | Appointment | Rehabilitation | Genesis Ayon OT | | | 2019 | | | | | +--------+ + + + + | 03/09/ | Office | Orthopedic Surgery | Jeffrey Gandhi, | | | 2019 | Visit | | [address] [facility] | | | | | | [place] [address] | | | | | | [phone] | | | | | | | [...] [place] | | | | | | [address] | | | | | | [phone] | | | | | | | [...] | | | | | [place] [address] | | | | | | [phone] | | | | | | | | | | | | Azul Yeboah, | | | | | | MD [address] | | | | | | [place] | | | | | | [place] [address] | | | | | | [phone] | | | | | | | [...] | | | | | | [place] [address] | | | | | | [phone] | | | | | | | | +--------+ + + + + documented as of this encounter Visit Diagnoses Not on filedocumented in this encounter"
--- OUTSIDE RECORDS SUMMARY | ~2020-02-18 | XMS | Clinical Summary ---
Demographics + + + | Address | [address] | | | [place] [address] | + + + | Home Phone [...] Team Providers + +------+ + | Care Beauty Shop Manager Name | Role | Phone | [...] + | Overview: Genetic testing done by Maritime Officer specialist and has 42% | | increase [...] Case | | | | | | Supervisor Poultry Processing-Clinical | | +--------+ + + + + [...] | | | | 49.9 in adult ([facility]) | +--------+ + + + + | [...] adult | | | | | | ([facility]); Dietary | | | | | | [...] Case | | | | | | Supervisor Poultry Processing-Clinical | | +--------+ + + + + | 12/30/ | Telephone | Primary Care | Evelyn Malik, | Care Coordination | | 2019 | | | Case | | | | | | Supervisor Poultry Processing-Clinical | | +--------+ + + + + [...] Case | | | | | | Supervisor Poultry Processing-Clinical | | +--------+ + + + + [...] Primary Care | Betsy Ernst, | Chris ([facility]) | | 2020 | | | DO | | +--------+ + + + + | 12/25/ | Clinical | Primary Care | Harvey, | | | 2019 | Support | | DWAINE Niño, | | | | | | Betsy Salter DO | | +--------+ + + [...] Case | | | | | | Supervisor Poultry Processing-Clinical | | +--------+ + + + + | 12/25/ | Telephone | Primary Care | Betsy Ernst, | Other (FYI) | | 2019 [...] | | | | | Julia Chapin CARAMEL CUTTER HAND | ankle, subsequent | | | | [...] | | 2019 | | | CC MATERIAL 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 | pain ) | +--------+ + + [...] | | | | | back from [facility] about | | | | | | [...] | | | | | Julia Chapin CARAMEL CUTTER HAND | ankle, subsequent | | | | [...] cough | 2019 | Visit | | 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 | (Primary Dx); Acute | | | [...] | | 2019 | Visit | | 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 | (Primary Dx); Sore | | | [...] | + + + + | INFLUENZA, [id number], | 09/04/2009 | | | INACTIVATED | [...] | Heart attack | Maternal | | [place] | | | Aunt | | | [...] | | | | | [place] [address] | | | | | | [phone] | | | | | | | | | | | | Julia Fisher, | | | | | | PT | | +--------+ + + + + | 02/18/ | Appointment | Rehabilitation | Betsy Ernst, | | | 2019 | | | DO [address] [place] | | | | | | [place] [address] | | | | | | [phone] | | | | | | | | | | | | Genesis Ayon OT | | +--------+ + + + + | 02/25/ | Office | Primary Care | Betsy Ernst, | | | 2019 | Visit | | DO [address] | | | | | | [place] [address] | | | | | | [phone] | | | | | | | [...] | | | | | [place] [address] | | | | | | [phone] | | | | | | | | +--------+ + + + + | 02/27/ | Appointment | Radiology | Dhara, | | | 2019 | | | [address] | | | | | | [address]TH [facility], | | | | | | [place] [address] | | | | | | [phone] | | | | | | | [...] | | | | | | [place] [address] | | | | | | [phone] | | | | | | | [...] [place] | | | | | | [address] | | | | | | [phone] | | | | | | | [...] | | | | | [place] [address] | | | | | | [phone] | | | | | | | | | | | | Azul Yeboah, | | | | | | MD [address] | | | | | | [place] | | | | | | [place] [address] | | | | | | [phone] | | | | | | | [...] | | | | | | [place] [address] | | | | | | [phone] | | | | | | | [...] | | | | | 11/25/ | [address] | | Qty: 3 on 03/20/2019 by | | | | | 2023 | / | | Yari Noriega MD at [facility] | | | | | | /[id number] | | [facility] | | | | | [...] C?MRN: | | | | | | [id number] | | | [id number] | | | riteri | | | [...] | | ESLING | | | ER, ENVIRONMENTAL SCIENCE PROGRAM DIRECTOR | | | 0 | | | [...] | | | VANI, | | | ENVIRONMENTAL SCIENCE PROGRAM DIRECTOR 0 | | | | | | [...] | | | St. | | | [place] | | | y | | | [...] | | | St. | | | [place] | | | y H. | | [...] | | | [id number] | | | [id number] | | | [id number] | | | [...] | [place] [facility] | [address] | [place] | [phone] | | [facility] | | [address] | | | [facility] | [...] + + | [place] [facility] | [address] | [place] | [phone] | | HOSPITAL LABORATORY | | [address] | | + + + + + [...] + + | [place] [facility] | [address] | [place], [place] | [phone] | | HOSPITAL LABORATORY | | [address] | | + + + + + [...] process. | | | |Dictated by: Braydon tSockton | | | | | + + [...] - 1.030 | [place] | | | Gervais, | | | RONDE | | | [...] + + | [place] [facility] | [address] [facility] | [place], [place] | [phone] | | [facility] | | [address] | | | MEDICAL CENTER LAB | [...] + + | [place] [facility] | [address] | [place] | [phone] | | HOSPITAL LABORATORY | | [address] | | + + + + + [...] + + | [place] [facility] | [address] | [place] | [phone] | | [facility] | | [address] | | + + + + + [...] + + | [place] [facility] | [address] | [place] | [phone] | | HOSPITAL LABORATORY | | [address] | | + + + + + [...] +--------+ | [employer] | SAIF | [id number] | | [phone] | Indemn | | | WC | | 018-Pr | 5 | | ity | | | | | esent | | | | + +--------+ +--------+ + +--------+ | [employer] | SAIF | [id number] | | [phone] | | Indemn | | | WC | | 019-Pr | 5 | | ity | | | | | esent | | | | + +--------+ +--------+ + +--------+ | [employer] | SAIF | [id number] | | [phone] | | PPO | | | MAJORI | | 018-Pr | 5 | | | | | S MCO | | esent | | | | + +--------+ +--------+ + +--------+ | [employer] | SAIF | [id number] | | [phone] | | Indemn | | | WC | | 018-Pr | 5 | | ity | | | | | esent | | | | + +--------+ +--------+ + +--------+ | [employer] | [employer] | [id number] | 10/02/19 | [phone] | [address] | PPO | | | HEALTH | | 18-Pre | 9 | [phone] | | | | | | sent | | [place], | | | | [place] | | | | [place] [address] | | | | [place] | | | | | | + +--------+ +--------+ + +--------+ | [facility] | PHP | [id number] | 10/02/19 | [phone] | | PPO | | PLAN | PERSON | | 20-Pre | 5 | | | | | [place] | | sent | | | | | | OPEN | | | | | | | | OPTION | | | | | | + +--------+ +--------+ + +--------+ | [facility] | PHP | [id number] | 10/02/19 | [phone] | PPO [...] jayna | | | 6 (Home) | [address] | | | | | | [phone] | | | | | | | 7 (Work) | | + +--------+ +--------+ + + | Zeny Suh | Person | Self | [birth year] | [address] | | | al/Fam | | 1989 | [id number] | [place] | | | jayna | | | 6 (Home) | [address] | | | | | | [phone] | | | | | | | 7 (Work) | | + +--------+ +--------+ + + | Zeny Suh | Person | Self | [birth year] | | [address] | | | al/Fam | | 1989 | [id number] | [place] | | | jayna | | | 6 (Home) | [address] | + +--------+ +--------+ + + | Zeny Suh | Worker | Self | | | [address] | | | s Comp | | | [phone] | [place] | | | | | | 6 (Home) | [address] | | | | | | [phone] | | | | | | | 7 (Work) | | + +--------+ +--------+ + + | Zeny Suh | Worker | Self | [birth year] | [address] | | | s Comp | | 1989 | [phone] | [place] | | | | | | 6 (Home) | [address] | | | | | | [phone] | | | | | | | 7 (Work) | | + +--------+ +--------+ + + | Zeny Suh | Worker | Self | [birth year] | | [address] | | | s Comp | | 1989 | [phone] | [place] | | | | | | 6 (Home) | [address] | | | | | | [phone] | | | | | | | 7 (Work) | | + +--------+ +--------+ + + Advance Directives + + + + + | Type | Date Recorded | Patient | Explanation | | | | Adjustment Clerk | | + + + + + | Power of | | | | | Cash Register Repairer | | | | + + + [...]
--- OUTSIDE RECORDS SUMMARY | ~2020-02-18 | XMS | Encounter Summary ---
Demographics + + + | Address | [address] | | | [place] [address] | + + + | Home Phone [...] Team Providers + +------+ + | Care Retort Fireman Name | Role | Phone | [...] | [facility] | [place] [address] | encounter (Primary | | | | [address] [place], | [phone] | Dx) | | | | [place] [address] | | | | | | [phone] | | | +--------+---------+ + + + [...] 2019 | | | DO [address] | | | | | | [place] [address] | | | | | | [phone] | | | | | | | | | | | | Julia Fisher, | | | | | | PT | | +--------+ + + + + | 02/18/ | Appointment | Rehabilitation | Erika Ernst, | | | 2019 | | | DO [address] | | | | | | [place] [address] | | | | | | [phone] | | | | | | | | | | | | Genesis Ayon OT | | +--------+ + + + + | 02/25/ | Office | Primary Care | Erika Ernst, | | | 2019 | Visit | | DO [address] | | | | | | [place] [address] | | | | | | [phone] | | | | | | | [...] | | | | | [place] [address] | | | | | | [phone] | | | | | | | | +--------+ + + + + | 02/27/ | Appointment | Radiology | Dhara, | | | 2019 | | | [address] Ross [address] | | | | | | [address] [place], | | | | | | [place] [address] | | | | | | [phone] | | | | | | | [...] | | | | | [place] [address] | | | | | | [phone] | | | | | | | [...] [place] | | | | | | [address] | | | | | | [phone] | | | | | | | [...] | | | | | [place] [address] | | | | | | [phone] | | | | | | | | | | | | Azul Yeboah, | | | | | | MD [address] | | | | | | [place] | | | | | | [place] [address] | | | | | | [phone] | | | | | | | [...] | | | | | | [place] [address] | | | | | | [phone] | | | | | | | | +--------+ + + + + documented as of this encounter Visit Diagnoses + + | Diagnosis | + + | Strain of left ankle, subsequent encounter - Primary | + + documented in this encounter
--- OUTSIDE RECORDS SUMMARY | ~2020-02-18 | XMS | Encounter Summary ---
Demographics + + + | Address | [address] | | | [place] [address] | + + + | Home Phone [...] Team Providers + +------+ + | Care Preflight Mechanic Name | Role | Phone | [...] | [place], [place] | [place] [address] | | | | | [address] | [phone] | | | | | [phone] | | | +--------+ + + + [...] | | | | | [place] [address] | | | | | | [phone] | | | | | | | | | | | | Julia Fisher, | | | | | | PT | | +--------+ + + + + | 02/18/ | Appointment | Rehabilitation | Erika Ernst, | | | 2019 | | | DO [address] | | | | | | [place] [address] | | | | | | [phone] | | | | | | | | | | | | Genesis Ayon OT | | +--------+ + + + + | 02/25/ | Office | Primary Care | Erika Ernst, | | | 2019 | Visit | | DO [address] | | | | | | [place] [address] | | | | | | [phone] | | | | | | | [...] | | | | | [place] [address] | | | | | | [phone] | | | | | | | | +--------+ + + + + | 02/27/ | Appointment | Radiology | Dhara, | | | 2019 | | | DWAINE [address] | | | | | | [address]TH [facility] [place], | | | | | | [place] [address] | | | | | | [phone] | | | | | | | [...] [place] | | | | | | [place] [address] | | | | | | [phone] | | | | | | | [...] [place] | | | | | | [address] | | | | | | [phone] | | | | | | | [...] | | | | | [place] [address] | | | | | | [phone] | | | | | | | | | | | | Azul Yeboah, | | | | | | MD [address] | | | | | | [place] | | | | | | [place] [address] | | | | | | [phone] | | | | | | | [...] | | | | | | [place] [address] | | | | | | [phone] | | | | | | | | +--------+ + + + + documented as of this encounter Visit Diagnoses Not on filedocumented in this encounter"
--- OUTSIDE RECORDS SUMMARY | ~2020-02-18 | XMS | Encounter Summary ---
Demographics + + + | Address | [address] | | | [place] [address] | + + + | Home Phone [...] Providers + +------+ + | Care Sound Equipment Mechanic Name | Role | Phone | [...] | [facility] | [place] [address] | | | | | [address] [place], | [phone] | | | | | [place] [address] | | | | | | [phone] | | | +--------+ + + + [...] | | | | | [place] [address] | | | | | | [phone] | | | | | | | | | | | | Forma, Julia M, | | | | | | PT | | +--------+ + + + + | 02/18/ | Appointment | Rehabilitation | Erika Ernst, | | | 2019 | | | DO [address] [place] | | | | | | [place] [address] | | | | | | [phone] | | | | | | | | | | | | Genesis Ayon OT | | +--------+ + + + + | 02/25/ | Office | Primary Care | Erika Ernst, | | | 2019 | Visit | | DO [address] | | | | | | [place] [address] | | | | | | [phone] | | | | | | | [...] | | | | | [place] [address] | | | | | | [phone] | | | | | | | | +--------+ + + + + | 02/27/ | Appointment | Radiology | Dhara, | | | 2019 | | | DWAINE [address] | | | | | | 4TH [facility], | | | | | | [place] [address] | | | | | | [phone] | | | | | | | [...] ST | | | | | | [place] [address] | | | | | | [phone] | | | | | | | [...] [place] | | | | | | [address] | | | | | | [phone] | | | | | | | [...] | | | | | [place] [address] | | | | | | [phone] | | | | | | | | | | | | Azul Yeboah, | | | | | | MD [address] | | | | | | [place] | | | | | | [place] [address] | | | | | | [phone] | | | | | | | [...] | | | | | | [place] [address] | | | | | | [phone] | | | | | | | | +--------+ + + + + documented as of this encounter Visit Diagnoses Not on filedocumented in this encounter"
--- OUTSIDE RECORDS SUMMARY | ~2020-02-18 | XMS | Encounter Summary ---
Demographics + + + | Address | [address] | | | [place] [address] | + + + | Home Phone [...] Providers + +------+ + | Care Gas Plant Operator Name | Role | Phone [...] [place] | | | | | | [address] | | | | | | [phone] | | | +--------+ + + + [...] | | | | | [place] [address] | | | | | | [phone] | | | | | | | | | | | | Julia Fisher, | | | | | | PT | | +--------+ + + + + | 02/18/ | Appointment | Rehabilitation | Erika Ernst, | | | 2019 | | | DO [address] [place] | | | | | | [place] [address] | | | | | | [phone] | | | | | | | | | | | | Genesis Ayon OT | | +--------+ + + + + | 02/25/ | Office | Primary Care | Erika Ernst, | | | 2019 | Visit | | DO [address] | | | | | | [place] [address] | | | | | | [phone] | | | | | | | [...] | | | | | [place] [address] | | | | | | [phone] | | | | | | | | +--------+ + + + + | 02/27/ | Appointment | Radiology | Dhara | | | 2019 | | | DWAINE Ross [address] | | | | | | [address] [place], | | | | | | [place] [address] | | | | | | [phone] | | | | | | | | +--------+ + + + + | 03/04/ | Appointment | Rehabilitation | Genesis Ayon OT | | | 2019 | | | | | +--------+ + + + + | 03/09/ | Office | Orthopedic Surgery | Jeffrey Gandhi, | | | 2019 | Visit | | [place] [address] [facility] | | | | | | [place] [address] | | | | | | [phone] | | | | | | | [...] [place] | | | | | | [address] | | | | | | [phone] | | | | | | | [...] | | | | | [place] [address] | | | | | | [phone] | | | | | | | | | | | | Azul Yeboah, | | | | | | MD [address] | | | | | | [place] | | | | | | [place] [address] | | | | | | [phone] | | | | | | | [...] | | | | | | [place] [address] | | | | | | [phone] | | | | | | | | +--------+ + + + + documented as of this encounter Visit Diagnoses Not on filedocumented in this encounter"
--- OUTSIDE RECORDS SUMMARY | ~2020-02-18 | XMS | Encounter Summary ---
Demographics + + + | Address | [address] | | | [place] [address] | + + + | Home Phone [...] 2020 | | HOSPITAL NEUROLOGY | Maddylauraromario, [facility] [address] | ([place]) | | | | CLINIC [address] | [address] [employer], | | | | | [place] | [place] [address] | | | | | [place] [address] | [phone] | | | | | [phone] | | | +--------+ + + + [...] | | | | | [place] [address] | | | | | | [phone] | | | | | | | | | | | | Julia Fisher, | | | | | | PT | | +--------+ + + + + | 02/18/ | Appointment | Rehabilitation | Erika Ernst, | | | 2019 | | | DO [address] [place] | | | | | | [place] [address] | | | | | | [phone] | | | | | | | | | | | | Genesis Ayon OT | | +--------+ + + + + | 02/25/ | Office | Primary Care | Erika Ernst, | | | 2019 | Visit | | DO [address] [place] | | | | | | [place] [address] | | | | | | [phone] | | | | | | | [...] | | | | | [place] [address] | | | | | | [phone] | | | | | | | | +--------+ + + + + | 02/27/ | Appointment | Radiology | Dhara, | | | 2019 | | | [address] | | | | | | [address]TH [facility], | | | | | | [place] [address] | | | | | | [phone] | | | | | | | [...] [place] | | | | | | [place] [address] | | | | | | [phone] | | | | | | | [...] [place] | | | | | | [address] | | | | | | [phone] | | | | | | | [...] | | | | | [place] [address] | | | | | | [phone] | | | | | | | | | | | | Azul Yeboah, | | | | | | MD [address] | | | | | | [place] | | | | | | [place] [address] | | | | | | [phone] | | | | | | | [...] | | | | | | [place] [address] | | | | | | [phone] | | | | | | | | +--------+ + + + + documented as of this encounter Visit Diagnoses Not on filedocumented in this encounter"
--- OUTSIDE RECORDS SUMMARY | ~2020-02-18 | XMS | Encounter Summary ---
Demographics + + + | Address | [address] | | | [place] [address] | + + + | Home Phone [...] Providers + +------+ + | Care Forming Machine Upkeep Mechanic Name | Role | Phone | + +------+ + | Erika Ernst DO | PCP | | + +------+ + Reason for Visit + + + | Reason | Comments | + + + | Medication Related | tiZANidine (ZANAFLEX) 4 mg tablet | + + + Encounter Details +--------+ + + + + | Date | Type | Department | Care Team | Description | +--------+ + + + + | 02/04/ | Telephone | [place] [facility] | Erika Ernst, | Medication Related | | 2020 | | [facility] | DO [address] | (tiZANidine | | | | MEDICAL [facility] | [facility] [place] [address] | (ZANAFLEX) 4 mg | | | | [address] [place], | [phone] | tablet) | | | | [place] [address] | | | | | | [phone] | | | +--------+ + + + [...] | | | | | [place] [address] | | | | | | [phone] | | | | | | | | | | | | Julia Fisher, | | | | | | PT | | +--------+ + + + + | 02/18/ | Appointment | Rehabilitation | Erika Ernst, | | | 2019 | | | DO [address] [place] | | | | | | [place] [address] | | | | | | [phone] | | | | | | | | | | | | Genesis Ayon OT | | +--------+ + + + + | 02/25/ | Office | Primary Care | Erika Ernst, | | | 2019 | Visit | | DO [address] [place] | | | | | | [place] [address] | | | | | | [phone] | | | | | | | [...] | | | | | [place] [address] | | | | | | [phone] | | | | | | | | +--------+ + + + + | 02/27/ | Appointment | Radiology | Dhara, | | | 2019 | | | [address] | | | | | | [address] [place], | | | | | | [place] [address] | | | | | | [phone] | | | | | | | | +--------+ + + + + | 03/04/ | Appointment | Rehabilitation | Genesis Ayon OT | | | 2019 | | | | | +--------+ + + + + | 03/09/ | Office | Orthopedic Surgery | Jeffrey Gandhi, | | | 2019 | Visit | | [address] | | | | | | [place] [address] | | | | | | [phone] | | | | | | | [...] [place] | | | | | | [address] | | | | | | [phone] | | | | | | | [...] | | | | | [place] [address] | | | | | | [phone] | | | | | | | | | | | | Azul Yeboah, | | | | | | [address] | | | | | | [place] | | | | | | [place] [address] | | | | | | [phone] | | | | | | | [...] | | | | | | [place] [address] | | | | | | [phone] | | | | | | | | +--------+ + + + + documented as of this encounter Visit Diagnoses Not on filedocumented in this encounter"
--- OUTSIDE RECORDS SUMMARY | ~2020-02-18 | XMS | Encounter Summary ---
Demographics + + + | Address | [address] | | | [place] [address] | + + + | Home Phone [...] Providers + +------+ + | Care Manager Nursing Home Name | Role | Phone | + [...] Results | | 2017 | | [facility] | PACKAGING TECH | | | | | [facility] [address] | | | | | | [address] [facility] [place], | | | | | | [place] [address] | | | | | | [phone] | | | +--------+ + + + [...] | | 2019 | | | DO [facility] | | | | | | [place] [address] | | | | | | [phone] | | | | | | | | | | | | Julia Fisher, | | | | | | PT | | +--------+ + + + + | 05/20/ | Appointment | Rehabilitation | Erika Ernst, | | | 2019 | | | DO [address] | | | | | | [place] [address] | | | | | | [phone] | | | | | | | | | | | | [facility] OT | | +--------+ + + + + | 02/25/ | Office | Primary Care | Erika Ernst, | | | 2019 | Visit | | DO [address] | | | | | | [place] [address] | | | | | | [phone] | | | | | | | [...] | | | | | [place] [address] | | | | | | [phone] | | | | | | | | +--------+ + + + + | 02/27/ | Appointment | Radiology | Dhara, | | | 2019 | | | DWAINE [address] | | | | | | [address] [facility] [place], | | | | | | [place] [address] | | | | | | [phone] | | | | | | | [...] | | | | | [place] [address] | | | | | | [phone] | | | | | | | [...] [place] | | | | | | [address] | | | | | | [phone] | | | | | | | [...] | | | | | [place] [address] | | | | | | [phone] | | | | | | | | | | | | Azul Yeboah, | | | | | | MD [address] | | | | | | [place] [place] | | | | | | [place] [address] | | | | | | [phone] | | | | | | | [...] | | | | | | [place] [address] | | | | | | [phone] | | | | | | | | +--------+ + + + + documented as of this encounter Visit Diagnoses Not on filedocumented in this encounter"
--- OUTSIDE RECORDS SUMMARY | ~2020-02-18 | XMS | Encounter Summary ---
Demographics + + + | Address | [address] | | | [place] [address] | + + + | Home Phone [...] Team Providers + +------+ + | Care Furniture Decals Inspector Name | Role | Phone | [...] Essential | | 2018 | Visit | [facility] | DO [address] | hypertension | | | | [facility] | [place] [address] | (Primary Dx); Acute | | | | [address] [place], | [phone] | recurrent frontal | | | | [place] [address] | | sinusitis | | | | [phone] | | | +--------+---------+ + + + [...] to day. States she was at her Applications Development Consultant provider yesterday in the AM and BP [...] | | | | | [place] [address] | | | | | | [phone] | | | | | | | | | | | | Julia Fisher, | | | | | | PT | | +--------+ + + + + | 02/18/ | Appointment | Rehabilitation | Erika Ernst, | | | 2019 | | | DO [address] | | | | | | [place] [address] | | | | | | [phone] | | | | | | | | | | | | Genesis Ayon OT | | +--------+ + + + + | 02/25/ | Office | Primary Care | Erika Ernst, | | | 2019 | Visit | | DO [address] | | | | | | [place] [address] | | | | | | [phone] | | | | | | | [...] | | | | | [place] [address] | | | | | | [phone] | | | | | | | | +--------+ + + + + | 02/27/ | Appointment | Radiology | Dhara | | | 2019 | | | DWAINE Ross [address] | | | | | [address] [place], | | | | | | [place] [address] | | | | | | [phone] | | | | | | | [...] ST | | | | | | [place] [address] | | | | | | [phone] | | | | | | | [...] [place] | | | | | | [address] | | | | | | [phone] | | | | | | | [...] | | | | | [place] [address] | | | | | | [phone] | | | | | | | | | | | | Azul Yeboah, | | | | | | [address] | | | | | | [place] | | | | | | [place] [address] | | | | | | [phone] | | | | | | | [...] | | | | | | [place] [address] | | | | | | [phone] | | | | | | | | +--------+ + + + + documented as of this encounter Visit Diagnoses + + | Diagnosis | + + | Essential hypertension - Primary Unspecified essential hypertension | + + | Acute recurrent frontal sinusitis Acute frontal sinusitis | + + documented in this encounter
--- OUTSIDE RECORDS SUMMARY | ~2020-02-18 | XMS | Encounter Summary ---
Demographics + + + | Address | [address] | | | [place] [address] | + + + | Home Phone [...] Team Providers + +------+ + | Care Tubing Drier Name | Role | Phone | + +------+ + | Erika Ernst DO | PCP | | + +------+ + Reason for Visit +--------+ + | Reason | Comments | +--------+ + | Other | attending physician for Workmans Comp | +--------+ + Encounter Details +--------+ + + + + | Date | Type | Department | Care Team | Description | +--------+ + + + + | 10/08/ | Telephone | [place] [facility] | Erika Ernst, | Other (attending | | 2020 | | [facility] | [address] [facility] | physician for | | | | MEDICAL CL[facility] [address] | [facility] [place] [address] | Workmankim Comp) | | | | 4TH [facility], | [phone] | | | | | [place] [address] | | | | | | [phone] | | | +--------+ + + + [...] | | | | | [place] [address] | | | | | | [phone] | | | | | | | | | | | | Julia Fisher, | | | | | | PT | | +--------+ + + + + | 02/18/ | Appointment | Rehabilitation | Erika Ernst, | | | 2019 | | | DO [address] | | | | | | [place] [address] | | | | | | [phone] | | | | | | | | | | | | Genesis Ayon OT | | +--------+ + + + + | 02/25/ | Office | Primary Care | Erika Ernst, | | | 2019 | Visit | | DO [address] | | | | | | [place] [address] | | | | | | [phone] | | | | | | | [...] | | | | | [place] [address] | | | | | | [phone] | | | | | | | | +--------+ + + + + | 02/27/ | Appointment | Radiology | Dhara, | | | 2019 | | | [address] | | | | | | [facility] | | | | | | [place] [address] | | | | | | [phone] | | | | | | | | +--------+ + + + + | 03/04/ | Appointment | Rehabilitation | Genesis Ayon OT | | 2019 | | | | | +--------+ + + + + | 03/09/ | Office | Orthopedic Surgery | Jeffrey Gandhi, | | 2019 | Visit | | [address] | | | | | | [place] [address] | | | | | | [phone] | | | | | | | [...] [place] | | | | | | [address] | | | | | | [phone] | | | | | | | [...] | | | | | [place] [address] | | | | | | [phone] | | | | | | | | | | | | Azul Yeboah, | | | | | | MD [address] | | | | | | [place] | | | | | | [place] [address] | | | | | | [phone] | | | | | | | [...] | | | | | | [place] [address] | | | | | | [phone] | | | | | | | | +--------+ + + + + documented as of this encounter Visit Diagnoses Not on filedocumented in this encounter"
--- OUTSIDE RECORDS SUMMARY | ~2020-02-18 | XMS | Encounter Summary ---
Demographics + + + | Address | [address] | | | [place] [address] | + + + | Home Phone [...] Team Providers + +------+ + | Care Silviculture Forester Name | Role | Phone | [...] | [facility] [address] | [place] [address] | | | | [address] [place], | [phone] | | | | | [place] [address] | | | | | | [phone] | | | +--------+ + + + [...] | | | | | [place] [address] | | | | | | [phone] | | | | | | | | | | | | Julia Fisher, | | | | | | PT | | +--------+ + + + + | 02/18/ | Appointment | Rehabilitation | Erika Ernst, | | | 2019 | | | DO [address] | | | | | | [place] [address] | | | | | | [phone] | | | | | | | | | | | | Genesis Ayon OT | | +--------+ + + + + | 02/25/ | Office | Primary Care | Erika Ernst, | | | 2019 | Visit | | DO [address] | | | | | | [place] [address] | | | | | | [phone] | | | | | | | [...] | | | | | [place] [address] | | | | | | [phone] | | | | | | | | +--------+ + + + + | 02/27/ | Appointment | Radiology | Dhara, | | | 2019 | | | [address] | | | | | | 4TH [facility], | | | | | | [place] [address] | | | | | | [phone] | | | | | | | | +--------+ + + + + | 03/04/ | Appointment | Rehabilitation | Genesis Ayon OT | | | 2019 | | | | | +--------+ + + + + | 03/09/ | Office | Orthopedic Surgery | Jeffrey Gandhi, | | | 2019 | Visit | | [address] | | | | | | [place] [address] | | | | | | [phone] | | | | | | | [...] [place] | | | | | | [address] | | | | | | [phone] | | | | | | | [...] | | | | | [place] [address] | | | | | | [phone] | | | | | | | | | | | | Azul Yeboah, | | | | | | [address] | | | | | | [place] | | | | | | [place] [address] | | | | | | [phone] | | | | | | | [...] | | | | | | [place] [address] | | | | | | [phone] | | | | | | | | +--------+ + + + + documented as of this encounter Visit Diagnoses Not on filedocumented in this encounter"
--- OUTSIDE RECORDS SUMMARY | ~2020-02-18 | XMS | Encounter Summary ---
Demographics + + + | Address | [address] | | | [place] [address] | + + + | Home Phone [...] Team Providers + +------+ + | Care Applier Name | Role | Phone | + [...] Refill | | 2020 | | [facility] | Jadyn, DO [address] | | | | | [facility] [address] | [address] [place] | | | | | [address] [place], | [place] [address] | | | | | [place] [address] | [phone] | | | | | [phone] | | | +--------+--------+ + + + [...] | | | | | [place] [address] | | | | | | [phone] | | | | | | | [...] [address] | | | | | | [phone] | | | | | | | | | | | | Genesis [facility] OT | | +--------+ + + + + | 02/25/ | Office | Primary Care | Erika Ernst, | | | 2019 | Visit | | DO [address] | | | | | | [place] [address] | | | | | | [phone] | | | | | | | [...] | | | | | [place] [address] | | | | | | [phone] | | | | | | | | +--------+ + + + + | 02/27/ | Appointment | Radiology | Dhara, | | | 2019 | | | [address] | | | | | | 4TH [facility], | | | | | | [place] [address] | | | | | | [phone] | | | | | | | | +--------+ + + + + | 03/04/ | Appointment | Rehabilitation | Genesis Ayon OT | | | 2019 | | | | | +--------+ + + + + | 03/09/ | Office | Orthopedic Surgery | Jeffrey Gandhi, | | | 2019 | Visit | | [address] | | | | | | [place] [address] | | | | | | [phone] | | | | | | | [...] [place] | | | | | | [address] | | | | | | [phone] | | | | | | | [...] | | | | | [place] [address] | | | | | | [phone] | | | | | | | | | | | | Azul Yeboah, | | | | | | MD [address] | | | | | | [place] | | | | | | [place] [address] | | | | | | [phone] | | | | | | | [...] | | | | | | [place] [address] | | | | | | [phone] | | | | | | | | +--------+ + + + + documented as of this encounter Visit Diagnoses Not on filedocumented in this encounter"
--- OUTSIDE RECORDS SUMMARY | ~2020-02-18 | XMS | Encounter Summary ---
Demographics + + + | Address | [address] | | | [place] [address] | + + + | Home Phone [...] Providers + +------+ + | Care Manager Of Loss Prevention Operations Name | Role | Phone | [...] | Travis Malone FNP | S/P right COUNTS INCLUDE [facility] | | 2019 | Visit | [facility] | [address] [place] | tenosynovectomy on | | | | [address] [place] F | [place], [place] | 03/20/19 | | | | [place], [place] | [address] | | | | | [address] | [phone] | | | | | [phone] | | | +--------+---------+ + + + [...] number, which will transfer you to the i[employer]combanner service at the hospital and ask for the duplication specialist orthopedic provider. Be sure to mention t hat you've had surgery recently. documented in this encounter Progress Notes Travis Malone FNP - 03/26/2019 10:40 AM PDT Orthopedic Postoperative Note Patient Name: Andrea Suh | Age: 28 y.o. | : 1990 | Medical Record Number:[id number] | Author: MOHSEN Martinez | Date of Encounter: 03/26/2019 Surgeon: Inocencio Noriega MD History of present illness Andrea Suh is a 28 y.o. female that follows up in the office 1 week status post [facility] tendon tenosynovectomy reporting no significant [...] E.C.U. Tendon; Surgeon: Inocencio Noriega MD; Location: [facility] SURGERY RIGHT KIDNER PROCEDURE 01/20/2016 Surgeon: Fani Mahajan MD; Location: [facility] TENDON RELEASE TONSILLECTOMY WISDOM TOOTH EXTRACTION Family History Problem Relation Age of Onset Other (see comment) Mother gallbladder disease Hypertension Father Other (see comment) Father arrhymthmia Breast cancer Sister Cervical cancer Maternal Grandmother Heart attack Maternal Aunt [place] Social History Tobacco Use Smoking status: Never [...] their vital signs recorded by my assistant superintendent today, a s found in this chart note. Electronically signed by: MOHSEN Martinez 03/26/2019 at 10:55 Note: Part of this report was transcribed using voice recognition software. Every effort wa s made to ensure accuracy. However, inadvertent computerized cellular biologist errors may be pre sent. CC: Erika [...] | | | | | [place] [address] | | | | | | [phone] | | | | | | | | | | | | Julia Fisher, | | | | | | PT | | +--------+ + + + + | 02/18/ | Appointment | Rehabilitation | Erika Ernst, | | | 2019 | | | DO [address] | | | | | | [place] [address] | | | | | | [phone] | | | | | | | | | | | | Genesis Ayon OT | | +--------+ + + + + | 02/25/ | Office | Primary Care | Erika Ernst, | | | 2019 | Visit | | DO [address] | | | | | | [place] [address] | | | | | | [phone] | | | | | | | [...] | | | | | [place] [address] | | | | | | [phone] | | | | | | | | +--------+ + + + + | 02/27/ | Appointment | Radiology | Dhara, | | | 2019 | | | [address] | | | | | | 4TH [facility], | | | | | | [place] [address] | | | | | | [phone] | | | | | | | | +--------+ + + + + | 03/04/ | Appointment | Rehabilitation | Genesis Ayon OT | | | 2019 | | | | | +--------+ + + + + | 03/09/ | Office | Orthopedic Surgery | Jeffrey Gandhi, | | | 2019 | Visit | | [address] | | | | | | [place] [address] | | | | | | [phone] | | | | | | | [...] 2019 | Visit | Gynecology | DO aJckelyn Garcia | | | | | | [address] | | | | | | [place] | | | | | | [address] | | | | | | [phone] | | | | | | | [...] | | | | | [place] [address] | | | | | | [phone] | | | | | | | | | | | | Azul Yeboah, | | | | | | MD [address] | | | | | | [place] | | | | | | [place] [address] | | | | | | [phone] | | | | | | | [...] | | | | | | [place] [address] | | | | | | [phone] | | | | | | | | +--------+ + + + + documented as of this encounter Visit Diagnoses + + | Diagnosis | + + | S/P right [facility] tenosynovectomy on 03/20/19 | + + documented in this encounter"
--- OUTSIDE RECORDS SUMMARY | ~2020-02-18 | XMS | Encounter Summary ---
Demographics + + + | Address | [address] | | | [place] [address] | + + + | Home Phone [...] Providers + +------+ + | Care Digital Press Operator Name | Role | Phone [...] [address] | [facility] [place] | | | | | [place], [place] | [address] | | | | | [address] | [phone] | | | | | [phone] | | | +--------+ + + + [...] | | | | | [place] [address] | | | | | | [phone] | | | | | | | | | | | | Julia Fisher, | | | | | | PT | | +--------+ + + + + | 02/18/ | Appointment | Rehabilitation | Erika Ernst, | | | 2019 | | | DO [address] | | | | | | [place] [address] | | | | | | [phone] | | | | | | | | | | | | Genesis Ayon, OT | | +--------+ + + + + | 02/25/ | Office | Primary Care | Erika Ernst, | | | 2019 | Visit | | DO [address] | | | | | | [place] [address] | | | | | | [phone] | | | | | | | [...] | | | | | [place] [address] | | | | | | [phone] | | | | | | | | +--------+ + + + + | 02/27/ | Appointment | Radiology | Dhara, | | | 2019 | | | [address] | | | | | | 4TH [facility], | | | | | | [place] [address] | | | | | | [phone] | | | | | | | | +--------+ + + + + | 03/04/ | Appointment | Rehabilitation | Genesis Ayon OT | | | 2019 | | | | | +--------+ + + + + | 03/09/ | Office | Orthopedic Surgery | Jeffrey Gandhi, | | 2019 | Visit | | [address] | | | | | | [place] [address] | | | | | | [phone] | | | | | | | [...] [place] | | | | | | [address] | | | | | | [phone] | | | | | | | [...] | | | | | [place] [address] | | | | | | [phone] | | | | | | | | | | | | Azul Yeboah, | | | | | | MD [address] | | | | | | [place] | | | | | | [place] [address] | | | | | | [phone] | | | | | | | [...] [address] | | | | | | [phone] | | | | | | | | +--------+ + + + + documented as of this encounter Visit Diagnoses Not on filedocumented in this encounter"
--- OUTSIDE RECORDS SUMMARY | ~2020-02-18 | XMS | Encounter Summary ---
Demographics + + + | Address | [address] | | | [place] [address] | + + + | Home Phone [...] Providers + +------+ + | Care Associate Dean Name | Role | Phone | [...] | | | | s (de | [place], [place] | [place] [address] | | | | | quervain) | [address] | Phone: | | | | | Pain in | Phone: | [phone] | | | | | right wrist | [phone] | Fax: | | | | | Procedures | Fax: | [phone] | | | | | OT TREAT | [phone] | | +--------+--------+ + + + + [...] | | [address] [place] | [place] [address] | (Primary Dx); Right | | | | [place], [place] | [phone] | wrist pain | | | | [address] | | | | | | [phone] | Nakia Koo OT | | +--------+ [...] | 19 | 9 | | BRACE [id number]) | | | | | | | [...] Koo, OT - 11/01/2018 1:22 PM PST [facility] THERAP[facility] OT [address] [place] [address] Occupational Therapy Daily Treatment Note Date: 11/01/2018 [...] wrist but continues to have right wrist, 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 (3 [...] in 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, and 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 [...] [place] | | | | | | [facility] [place] [address] | | | | | | [phone] | | | | | | | | | | | | Julia Fisher, | | | | | | PT | | +--------+ + + + + | 02/18/ | Appointment | Rehabilitation | Erika Ernst, | 2019 | | | DO [address] | | | | | | [place] [address] | | | | | | [phone] | | | | | | | | | | | | Genesis Ayon, OT | | +--------+ + + + + | 02/25/ | Office | Primary Care | Erika Ernst, | | | 2019 | Visit | | DO [address] | | | | | | [place] [address] | | | | | | [phone] | | | | | | | [...] | | | | | [place] [address] | | | | | | [phone] | | | | | | | | +--------+ + + + + | 02/27/ | Appointment | Radiology | Dhara, | | | 2019 | | | [address] Ross [address] | | | | | | [address] [place], | | | | | | [place] [address] | | | | | | [phone] | | | | | | | [...] [place] | | | | | | [place] [address] | | | | | | [phone] | | | | | | | [...] [place] | | | | | | [address] | | | | | | [phone] | | | | | | | [...] | | | | | [place] [address] | | | | | | [phone] | | | | | | | | | | | | Azul Yeboah, | | | | | | [address] | | | | | | [place] | | | | | | [place] [address] | | | | | | [phone] | | | | | | | [...] | | | | | | [place] [address] | | | | | | [phone] | | | | | | | | +--------+ + + + + documented as of this encounter Visit Diagnoses + + | Diagnosis | + + | Radial styloid tenosynovitis - Primary | + + | Right wrist pain Pain in joint, forearm | + + documented in this encounter
--- OUTSIDE RECORDS SUMMARY | ~2020-02-18 | XMS | Encounter Summary ---
Demographics + + + | Address | [address] | | | [place] [address] | + + + | Home Phone [...] Team Providers + +------+ + | Care Bean Weigher Name | Role | Phone | [...] | | | of left | [place] [address] | [place] [address] | | | | | ankle, | Phone: | Phone: | | | | | initial | [phone] | [phone] | | | | | encounter | Fax: | Fax: | | | | | Procedures | [phone] | [phone] | | | | | PT EVAL [...] [address] [place] | [place] [address] | encounter (Primary | | | | [place], [place] | [phone] | Dx); Fall on same | | | | [address] | | level from slipping, | | | | [phone] | Nick Barrios I, PT | subsequent [...] has been updated for this PT series ([id number]) based on the documentation on the plan of care. Please code visit diagnoses as follows: Primary: S93.412D sprain L ankle, subsequent Secondary: W01.0XXD fall from slipping If you have any further questions please let me know. Thank you, Shelly Zeng, CCA Electronically signed by: Nick Barrios, PT, 08/07/2018 11:42 [email or web address], Nick Szymanski, PT - 07/20/2018 10:20 AM PDT [facility] THERAP[facility] PT [address] [place] [address] Physical Therapy Daily Treatment Note Date: 07/19/2018 [...] | | | | | [place] [address] | | | | | | [phone] | | | | | | | | | | | | Julia Fisher, | | | | | | PT | | +--------+ + + + + | 02/18/ | Appointment | Rehabilitation | Erika Ernst, | | | 2019 | | | DO [address] [place] | | | | | | [place] [address] | | | | | | [phone] | | | | | | | | | | | | Genesis [facility]yon OT | | +--------+ + + + + | 02/25/ | Office | Primary Care | Erika Ernst, | | | 2019 | Visit | | DO [address] [place] | | | | | | [place] [address] | | | | | | [phone] | | | | | | | [...] | | | | | [place] [address] | | | | | | [phone] | | | | | | | | +--------+ + + + + | 02/27/ | Appointment | Radiology | Dhara, | | | 2019 | | | [address] | | | | | | 4TH [facility], | | | | | | [place] [address] | | | | | | [phone] | | | | | | | | +--------+ + + + + | 03/04/ | Appointment | Rehabilitation | Genesis Ayon OT | | | 2019 | | | | | +--------+ + + + + | 03/09/ | Office | Orthopedic Surgery | Jeffrey Gandhi, | | | 2019 | Visit | | [address] [facility] | | | | | | [place] [address] | | | | | | [phone] | | | | | | | [...] [place] | | | | | | [address] | | | | | | [phone] | | | | | | | [...] | | | | | [place] [address] | | | | | | [phone] | | | | | | | | | | | | Azul Yeboah, | | | | | | MD [address] | | | | | | [place] | | | | | | [place] [address] | | | | | | [phone] | | | | | | | [...] | | | | | | [place] [address] | | | | | | [phone] | | | | | | | | +--------+ + + + + documented as of this encounter Visit Diagnoses + + | Diagnosis | + + | Sprain of left ankle, subsequent encounter - Primary | + + | Fall on same level from slipping, subsequent encounter | + + documented in this encounter
--- OUTSIDE RECORDS SUMMARY | ~2020-02-18 | XMS | Encounter Summary ---
Demographics + + + | Address | [address] | | | [place] [address] | + + + | Home Phone [...] Team Providers + +------+ + | Care Wide Piece Goods Inspector Name | Role | Phone | [...] | [facility] | [place] [address] | | | | [address] [place], | [phone] | | | | | [place] [address] | | | | | | [phone] | | | +--------+ + + + [...] | | | | | [place] [address] | | | | | | [phone] | | | | | | | | | | | | Julia Fisher, | | | | | | PT | | +--------+ + + + + | 02/18/ | Appointment | Rehabilitation | Erika Ernst, | | | 2019 | | | DO [address] [place] | | | | | | [place] [address] | | | | | | [phone] | | | | | | | | | | | | Genesis Ayon OT | | +--------+ + + + + | 02/25/ | Office | Primary Care | Erika Ernst, | | | 2019 | Visit | | DO [address] [place] | | | | | | [place] [address] | | | | | | [phone] | | | | | | | [...] | | | | | | [place] [address] | | | | | | [phone] | | | | | | | | +--------+ + + + + | 02/27/ | Appointment | Radiology | Dhara, | | | 2019 | | | [address] | | | | | | 4TH [facility], | | | | | | [place] [address] | | | | | | [phone] | | | | | | | | +--------+ + + + + | 03/04/ | Appointment | Rehabilitation | Genesis Ayon OT | | | 2019 | | | | | +--------+ + + + + | 03/09/ | Office | Orthopedic Surgery | Jeffrey Gandhi, | | | 2019 | Visit | | [address] | | | | | | [place] [address] | | | | | | [phone] | | | | | | | [...] [place] | | | | | | [address] | | | | | | [phone] | | | | | | | [...] | | | | | [place] [address] | | | | | | [phone] | | | | | | | | | | | | Azul Yeboah, | | | | | | [address] | | | | | | [place] | | | | | | [place] [address] | | | | | | [phone] | | | | | | | [...] | | | | | | [place] [address] | | | | | | [phone] | | | | | | | | +--------+ + + + + documented as of this encounter Visit Diagnoses Not on filedocumented in this encounter"
--- OUTSIDE RECORDS SUMMARY | ~2020-02-18 | XMS | Encounter Summary ---
Demographics + + + | Address | [address] | | | [place] [address] | + + + | Home Phone [...] Providers + +------+ + | Care Mail Superintendent Name | Role | Phone | + [...] [place] | | | | | [place] [address] | [address] | | | | | [phone] | [phone] | | | | | | | [...] | | | | | [place] [address] | | | | | | [phone] | | | | | | | | | | | | Julia Fisher, | | | | | | PT | | +--------+ + + + + | 02/18/ | Appointment | Rehabilitation | Erika Ernst, | | | 2019 | | | DO [address] | | | | | | [place] [address] | | | | | | [phone] | | | | | | | | | | | | Genesis Ayon, SUSAN | | +--------+ + + + + | 02/25/ | Office | Primary Care | Erika Ernst, | | | 2019 | Visit | | DO [address] | | | | | | [place] [address] | | | | | | [phone] | | | | | | | [...] | | | | | [place] [address] | | | | | | [phone] | | | | | | | | +--------+ + + + + | 02/27/ | Appointment | Radiology | Dhara, | | | 2019 | | | DWAINE [address] | | | | | | [address] [facility], | | | | | | [place] [address] | | | | | | [phone] | | | | | | | [...] HOSPITAL | | | | | | [place] [address] | | | | | | [phone] | | | | | | | [...] [place] | | | | | | [address] | | | | | | [phone] | | | | | | | [...] | | | | | [place] [address] | | | | | | [phone] | | | | | | | | | | | | Azul Yeboah, | | | | | | MD [address] | | | | | | [place] [place] | | | | | | [place] [address] | | | | | | [phone] | | | | | | | [...] | | | | | | [place] [address] | | | | | | [phone] | | | | | | | | +--------+ + + + + documented as of this encounter Visit Diagnoses Not on filedocumented in this encounter"
--- OUTSIDE RECORDS SUMMARY | ~2020-02-18 | XMS | Encounter Summary ---
Demographics + + + | Address | [address] | | | [place] [address] | + + + | Home Phone [...] Team Providers + +------+ + | Care Tube Former Operator Name | Role | Phone | [...] Results | | 2019 | | [facility] | DO [address] | | | | | MEDICAL [facility] [address] | [place] [address] | | | | | [address] [place], | [phone] | | | | | [place] [address] | | | | | | [phone] | | | +--------+ + + + [...] | | | | | [place] [address] | | | | | | [phone] | | | | | | | | | | | | Julia Fisher, | | | | | | PT | | +--------+ + + + + | 02/18/ | Appointment | Rehabilitation | Erika Ernst, | | | 2019 | | | DO [address] | | | | | | [place] [address] | | | | | | [phone] | | | | | | | | | | | | [facility] | | +--------+ + + + + | 02/25/ | Office | Primary Care | Erika Ernst, | | | 2019 | Visit | | DO [address] | | | | | | [place] [address] | | | | | | [phone] | | | | | | | [...] | | | | | | [place] [address] | | | | | | [phone] | | | | | | | | +--------+ + + + + | 02/27/ | Appointment | Radiology | Dhara, | | 2019 | | | [address] | | | | | | 4TH [facility], | | | | | | [place] [address] | | | | | | [phone] | | | | | | | | +--------+ + + + + | 03/04/ | Appointment | Rehabilitation | Genesis Ayon OT | | | 2019 | | | | | +--------+ + + + + | 03/09/ | Office | Orthopedic Surgery | Jeffrey Gandhi, | | | 2019 | Visit | | [address] | | | | | | [place] [address] | | | | | | [phone] | | | | | | | [...] [place] | | | | | | [address] | | | | | | [phone] | | | | | | | | +--------+ + + + + | 03/25/ | Appointment | Rehabilitation | eGnesis Ayon OT | | | 2019 | | | | | +--------+ + + + + | 04/08/ | Office | Neurology | Erika Ernst, | | | 2019 | Visit | | DO [address] | | | | | | [place] [address] | | | | | | [phone] | | | | | | | | | | | | Azul Yeboah, | | | | | | [address] | | | | | | [place] | | | | | | [place] [address] | | | | | | [phone] | | | | | | | [...] | | | | | | [address] [place], | | | | | | [place] [address] | | | | | | [phone] | | | | | | | | +--------+ + + + + documented as of this encounter Visit Diagnoses Not on filedocumented in this encounter"
--- OUTSIDE RECORDS SUMMARY | ~2020-02-18 | XMS | Encounter Summary ---
Demographics + + + | Address | [address] | | | [place] [address] | + + + | Home Phone [...] Team Providers + +------+ + | Care Gaming Surveillance Observer Name | Role | Phone | [...] Pain (Pt | | 2019 | | [facility] | DO [facility] [address] | request call back | | | | MEDICAL CLINIC [address] | [place] [address] | today re: right | | | | [address] [place], | [phone] | ankle sprain) | | | | [place] [address] | | | | | | [phone] | | | +--------+ + + + [...] | | | | | [place] [address] | | | | | | [phone] | | | | | | | | | | | | Julia Fisher, | | | | | | PT | | +--------+ + + + + | 02/18/ | Appointment | Rehabilitation | Erika Ernst, | | | 2019 | | | DO [address] | | | | | | [place] [address] | | | | | | [phone] | | | | | | | | | | | | [facility] | | +--------+ + + + + | 02/25/ | Office | Primary Care | Erika Ernst, | | | 2019 | Visit | | DO [address] | | | | | | [place] [address] | | | | | | [phone] | | | | | | | [...] | | | | | [place] [address] | | | | | | [phone] | | | | | | | | +--------+ + + + + | 02/27/ | Appointment | Radiology | Dhara, | | | 2019 | | | [address] | | | | | | [address] [place], | | | | | | [place] [address] | | | | | | [phone] | | | | | | | | +--------+ + + + + | 03/04/ | Appointment | Rehabilitation | Genesis Ayon OT | | | 2019 | | | | | +--------+ + + + + | 03/09/ | Office | Orthopedic Surgery | Jeffrey Gandhi, | | | 2019 | Visit | | [address] | | | | | | [place] [address] | | | | | | [phone] | | | | | | | [...] [place] | | | | | | [address] | | | | | | [phone] | | | | | | | [...] | | | | | [place] [address] | | | | | | [phone] | | | | | | | | | | | | Azul Yeboah, | | | | | | MD [address] | | | | | | [place] | | | | | | [place] [address] | | | | | | [phone] | | | | | | | [...] | | | | | | [place] [address] | | | | | | [phone] | | | | | | | | +--------+ + + + + documented as of this encounter Visit Diagnoses Not on filedocumented in this encounter"
--- OUTSIDE RECORDS SUMMARY | ~2020-02-18 | XMS | Encounter Summary ---
Demographics + + + | Address | [address] | | | [place] [address] | + + + | Home Phone [...] Providers + +------+ + | Care Records Technician Name | Role | Phone | [...] | | | | | | [place] [address] | [address] | | | | | | Phone: | [place] | | | | | | [phone] | [place] | | | | | | Fax: | [address] Phone: | | | | | | [phone] | [phone] | | | | | | | Fax: | | | | | | | [phone] | +--------+ + + + + + [...] menstrual | | 2017 | Visit | [facility] | DO [address] | periods (Primary | | | | MEDICAL CLINIC [address] | [facility] [place] [address] | Dx); Dysmenorrhea | | | | [address] [place], | [phone] | | | | | [place] [address] | | | | | | [phone] | | | +--------+---------+ + + + [...] complaints of painful menstrual periods. Had seen Web Worker in [place] in January for this and did not return for FU. First menses was at age 11. Periods are regular every 29 day s. No mid cycle pain. Flow is heavy first day then tapers. Pain starts first day and continu es whole period with cramping and even a day or two after period done. She would like referr al back to the Web Worker in [place]. Period just ended, no pain today. Review [...] 2. Dysmenorrhea Plan: Referral to [facility] Web Worker Dr Henna Green . She will take [...] | | | | | [place] [address] | | | | | | [phone] | | | | | | | | | | | | Julia Fisher, | | | | | | PT | | +--------+ + + + + | 02/18/ | Appointment | Rehabilitation | Erika Ernst, | | | 2019 | | | DO [address] | | | | | | [place] [address] | | | | | | [phone] | | | | | | | | | | | | [facility] | | +--------+ + + + + | 02/25/ | Office | Primary Care | Erika Ernst, | | | 2019 | Visit | | DO [address] | | | | | | [place] [address] | | | | | | [phone] | | | | | | | [...] | | | | | | [place] [address] | | | | | | [phone] | | | | | | | | +--------+ + + + + | 02/27/ | Appointment | Radiology | Dhara, | | | 2019 | | | [address] | | | | | | [address]TH [place], | | | | | | [place] [address] | | | | | | [phone] | | | | | | | [...] [place] | | | | | | [place] [address] | | | | | | [phone] | | | | | | | [...] [place] | | | | | | [address] | | | | | | [phone] | | | | | | | [...] | | | | | [place] [address] | | | | | | [phone] | | | | | | | | | | | | Azul Yeboah, | | | | | | MD [address] | | | | | | [place] | | | | | | [place] [address] | | | | | | [phone] | | | | | | | [...] [address] | | | | | | [phone] | | | | | | | [...]
--- OUTSIDE RECORDS SUMMARY | ~2020-02-18 | XMS | Encounter Summary ---
Demographics + + + | Address | [address] | | | [place] [address] | + + + | Home Phone [...] Team Providers + +------+ + | Care Skin Therapist Name | Role | Phone | [...] | | | [place], [place] | [address] | | | | | [address] | | | | | | [phone] | | | +--------+ + + + [...] | | | | | [place] [address] | | | | | | [phone] | | | | | | | | | | | | Julia Fisher, | | | | | | PT | | +--------+ + + + + | 02/18/ | Appointment | Rehabilitation | Erika Ernst, | | | 2019 | | | DO [address] | | | | | | [place] [address] | | | | | | [phone] | | | | | | | | | | | | [facility] | | +--------+ + + + + | 02/25/ | Office | Primary Care | Erika Ernst, | | | 2019 | Visit | | DO [address] | | | | | | [place] [address] | | | | | | [phone] | | | | | | | [...] | | | | | [place] [address] | | | | | | [phone] | | | | | | | | +--------+ + + + + | 02/27/ | Appointment | Radiology | Dhara, | | | 2019 | | | [address] | | | | | | 4TH [facility], | | | | | | [place] [address] | | | | | | [phone] | | | | | | | [...] [place] | | | | | | [place] [address] | | | | | | [phone] | | | | | | | [...] [place] | | | | | | [address] | | | | | | [phone] | | | | | | | [...] | | | | | [place] [address] | | | | | | [phone] | | | | | | | | | | | | Azul Yeboah, | | | | | | MD [address] | | | | | | [place] | | | | | | [place] [address] | | | | | | [phone] | | | | | | | [...] | | | | | | [place] [address] | | | | | | [phone] | | | | | | | | +--------+ + + + + documented as of this encounter Visit Diagnoses Not on filedocumented in this encounter"
--- OUTSIDE RECORDS SUMMARY | ~2020-02-18 | XMS | Encounter Summary ---
Demographics + + + | Address | [address] | | | [place] [address] | + + + | Home Phone [...] Team Providers + +------+ + | Care Churner Name | Role | Phone | + [...] | | | MEDICAL CLINIC [address] | [place] [address] | | | | | [address] [place], | [phone] | | | | | [place] [address] | | | | | | [phone] | | | +--------+ + + + [...] [address] | | | | | | [phone] | | | | | | | | | | | | Julia Fisher, | | | | | | PT | | +--------+ + + + + | 02/18/ | Appointment | Rehabilitation | Erika Ernst, | | | 2019 | | | DO [address] | | | | | | [place] [address] | | | | | | [phone] | | | | | | | | | | | | [facility] | | +--------+ + + + + | 02/25/ | Office | Primary Care | Erika Ernst, | | | 2019 | Visit | | [address] [place] [address] | | | | | | [place] [address] | | | | | | [phone] | | | | | | | [...] | | | | | [place] [address] | | | | | | [phone] | | | | | | | | +--------+ + + + + | 02/27/ | Appointment | Radiology | Dhara, | | | 2019 | | | [address] | | | | | | [address] [place], | | | | | | [place] [address] | | | | | | [phone] | | | | | | | | +--------+ + + + + | 03/04/ | Appointment | Rehabilitation | Genesis Ayon OT | | 2019 | | | | | +--------+ + + + + | 03/09/ | Office | Orthopedic Surgery | Jeffrey Gandhi, | | | 2019 | Visit | | [place] [address] [facility] | | | | | | [place] [address] | | | | | | [phone] | | | | | | | [...] [place] | | | | | | [address] | | | | | | [phone] | | | | | | | [...] | | | | | [place] [address] | | | | | | [phone] | | | | | | | | | | | | Azul Yeboah, | | | | | | [address] | | | | | | [place] | | | | | | [place] [address] | | | | | | [phone] | | | | | | | [...] | | | | | | [place] [address] | | | | | | [phone] | | | | | | | | +--------+ + + + + documented as of this encounter Visit Diagnoses Not on filedocumented in this encounter"
--- OUTSIDE RECORDS SUMMARY | ~2020-02-18 | XMS | Encounter Summary ---
Demographics + + + | Address | [address] | | | [place] [address] | + + + | Home Phone [...] Providers + +------+ + | Care Software Requirements Engineer Name | Role | Phone | [...] | | | 2019 | Support | [facility] | DWAINE Huynh | | | | | [facility] [address] | [address] | | | | | [facility] | [place] [address] | | | | | [place] [address] | [phone] | | | | | [phone] | | | +--------+ + + + [...] this encounter Progress Notes Eliu Miller CC OPTICAL GLASS WET INSPECTOR - 09/07/2019 3:20 PM Mami King Earlenenanci is a 29 y.o. fema le who presents for f/u on bruise and pain at site of recent thyroid biopsy. Biopsy completed on 09-02-19 then f/u w/HERPETOLOGY TEACHER Carlos Armando on 09-04-19. Pt stated that during he r appt w/HERPETOLOGY TEACHER she was advised to rtn to clinic in "a couple days" if the pain does not subside . Pt's bruise was at the end of its progression and only a slightly yellowish area remained, pt also stated that the pain has gotten better since her last visit and she has be completi ng all recommendations for tx by HERPETOLOGY TEACHER. Pt declined any other/new sx. I consulted [...] | | | | | [place] [address] | | | | | | [phone] | | | | | | | | | | | | Julia Fisher, | | | | | | PT | | +--------+ + + + + | 02/18/ | Appointment | Rehabilitation | Erika Ernst, | | | 2019 | | | DO [address] | | | | | | [place] [address] | | | | | | [phone] | | | | | | | | | | | | [facility] | | +--------+ + + + + | 02/25/ | Office | Primary Care | Erika Ernst, | | | 2019 | Visit | | DO [address] | | | | | | [place] [address] | | | | | | [phone] | | | | | | | [...] | | | | | [place] [address] | | | | | | [phone] | | | | | | | | +--------+ + + + + | 02/27/ | Appointment | Radiology | Dhara, | | | 2019 | | | [address] | | | | | | 4TH [facility], | | | | | | [place] [address] | | | | | | [phone] | | | | | | | | +--------+ + + + + | 03/04/ | Appointment | Rehabilitation | Genesis Ayon OT | | | 2019 | | | | | +--------+ + + + + | 03/09/ | Office | Orthopedic Surgery | Jfefrey Gandhi, | | | 2019 | Visit | | [address] | | | | | | [place] [address] | | | | | | [phone] | | | | | | | [...] [place] | | | | | | [address] | | | | | | [phone] | | | | | | | [...] | | | | | [place] [address] | | | | | | [phone] | | | | | | | | | | | | Azul Yeboah, | | | | | | MD [address] | | | | | | [place] | | | | | | [place] [address] | | | | | | [phone] | | | | | | | [...] | | | | | | [place] [address] | | | | | | [phone] | | | | | | | | +--------+ + + + + documented as of this encounter Visit Diagnoses Not on filedocumented in this encounter
--- OUTSIDE RECORDS SUMMARY | ~2020-02-18 | XMS | Encounter Summary ---
Demographics + + + | Address | [address] | | | [place] [address] | + + + | Home Phone [...] Team Providers + +------+ + | Care Drywall Hanger Framer Name | Role | Phone | + [...] | | | [place], [place] | [address] | | | | | [address] | [phone] | | | | | [phone] | | | +--------+ + + + [...] | | | | | [place] [address] | | | | | | [phone] | | | | | | | | | | | | Julia Fisher, | | | | | | PT | | +--------+ + + + + | 02/18/ | Appointment | Rehabilitation | Erika Ernst, | | | 2019 | | | DO [address] | | | | | | [place] [address] | | | | | | [phone] | | | | | | | | | | | | [facility] | | +--------+ + + + + | 02/25/ | Office | Primary Care | Erika Ernst, | | | 2019 | Visit | | DO [address] | | | | | | [place] [address] | | | | | | [phone] | | | | | | | [...] | | | | | [place] [address] | | | | | | [phone] | | | | | | | | +--------+ + + + + | 02/27/ | Appointment | Radiology | Dhara, | | | 2019 | | | [address] | | | | | | 4TH [facility], | | | | | | [place] [address] | | | | | | [phone] | | | | | | | [...] | | | | | [place] [address] | | | | | | [phone] | | | | | | | [...] [place] | | | | | | [address] | | | | | | [phone] | | | | | | | [...] | | | | | [place] [address] | | | | | | [phone] | | | | | | | | | | | | Azul Yeboah, | | | | | | MD [address] | | | | | | [place] | | | | | | [place] [address] | | | | | | [phone] | | | | | | | [...] | | | | | | [place] [address] | | | | | | [phone] | | | | | | | | +--------+ + + + + documented as of this encounter Visit Diagnoses Not on filedocumented in this encounter"
--- OUTSIDE RECORDS SUMMARY | ~2020-02-18 | XMS | Encounter Summary ---
Demographics + + + | Address | [address] | | | [place] [address] | + + + | Home Phone [...] +------+ + | Care Associate Professor Of Economics Name | Role | Phone | + +------+ + PCP | Unavailable | + +------+ + Encounter Details +--------+ + + + + | Date | Type | Department | Care Team | Description | +--------+ + + + + | 06/30/ | [facility] [place] [facility] | Denise Mcgregor | | | 2017 | Encounter | [facility] | G, WATER RESOURCES ENGINEER | | | | | MEDICAL CLIN[facility] [address] | | | | | | 4TH [facility] [place], | | | | | | [place] [address] | | | | | | [phone] | | | +--------+ + + + [...] | | | | | [place] [address] | | | | | | [phone] | | | | | | | | | | | | Julia Fisher, | | | | | | PT | | +--------+ + + + + | 02/18/ | Appointment | Rehabilitation | Erika Ernst, | | | 2019 | | | DO [address] | | | | | | [place] [address] | | | | | | [phone] | | | | | | | | | | | | [facility] | | +--------+ + + + + | 02/25/ | Office | Primary Care | Erika Ernst, | | | 2019 | Visit | | DO [address] | | | | | | [place] [address] | | | | | | [phone] | | | | | | | [...] | | | | | [place] [address] | | | | | | [phone] | | | | | | | | +--------+ + + + + | 02/27/ | Appointment | Radiology | Dhara, | | | 2019 | | | [address] | | | | | | [address] [place], | | | | | | [place] [address] | | | | | | [phone] | | | | | | | | +--------+ + + + + | 03/04/ | Appointment | Rehabilitation | Genesis Ayon OT | | | 2019 | | | | | +--------+ + + + + | 03/09/ | Office | Orthopedic Surgery | Jeffrey Gandhi, | | | 2019 | Visit | | [place] [address] [facility] | | | | | | [place] [address] | | | | | | [phone] | | | | | | | [...] [place] | | | | | | [address] | | | | | | [phone] | | | | | | | [...] | | | | | [place] [address] | | | | | | [phone] | | | | | | | | | | | | Azul Yeboah, | | | | | | MD [address] | | | | | | [place] | | | | | | [place] [address] | | | | | | [phone] | | | | | | | [...] | | | | | | [place] [address] | | | | | | [phone] | | | | | | | | +--------+ + + + + documented as of this encounter Visit Diagnoses Not on filedocumented in this encounter"
--- OUTSIDE RECORDS SUMMARY | ~2020-02-18 | XMS | Encounter Summary ---
Demographics + + + | Address | [address] | | | [place] [address] | + + + | Home Phone [...] Team Providers + +------+ + | Care Licensing Engineer Name | Role | Phone | + +------+ + PCP | Unavailable | + +------+ + Encounter Details +--------+ + + + + | Date | Type | Department | Care Team | Description | +--------+ + + + + | 10/30/ | Hospital | [place] [facility] | Jenise Benitez, | | | 2015 | Encounter | HOSPITAL NURSERY | PERFORMANCE TEST ARCHITECT [address] | | | | | [address] [place] | [place] [address] | | | | | [place], [place] | [phone] | | | | | [address] | | | | | | [phone] | | | +--------+ + + + [...] | | | | | [place] [address] | | | | | | [phone] | | | | | | | | | | | | Julia Fisher, | | | | | | PT | | +--------+ + + + + | 02/18/ | Appointment | Rehabilitation | Erika Ernst, | | | 2019 | | | DO [address] [place] | | | | | | [place] [address] | | | | | | [phone] | | | | | | | | | | | | [facility] | | +--------+ + + + + | 02/25/ | Office | Primary Care | Erika Ernst, | | | 2019 | Visit | | DO [address] | | | | | | [place] [address] | | | | | | [phone] | | | | | | | [...] | | | | | [place] [address] | | | | | | [phone] | | | | | | | | +--------+ + + + + | 02/27/ | Appointment | Radiology | Dhara, | | | 2019 | | | [address] | | | | | | 4TH [facility], | | | | | | [place] [address] | | | | | | [phone] | | | | | | | | +--------+ + + + + | 03/04/ | Appointment | Rehabilitation | [facility] OT | | | 2019 | | | | | +--------+ + + + + | 03/09/ | Office | Orthopedic Surgery | Jeffrey Gandhi, | | 2019 | Visit | | [address] | | | | | | [place] [address] | | | | | | [phone] | | | | | | | [...] [place] | | | | | | [address] | | | | | | [phone] | | | | | | | [...] | | | | | [place] [address] | | | | | | [phone] | | | | | | | | | | | | Azul Yeboah, | | | | | | MD [address] | | | | | | [place] | | | | | | [place] [address] | | | | | | [phone] | | | | | | | [...] | | | | | | [place] [address] | | | | | | [phone] | | | | | | | | +--------+ + + + + documented as of this encounter Visit Diagnoses Not on filedocumented in this encounter"
--- OUTSIDE RECORDS SUMMARY | ~2020-02-18 | XMS | Encounter Summary ---
Demographics + + + | Address | [address] | | | [place] [address] | + + + | Home Phone [...] Team Providers + +------+ + | Care Palm And Back Forger Name | Role | Phone | + [...] | | | | s (de | [place], [place] | [place] [address] | | | | | quervain) | [address] | Phone: | | | | | Pain in | Phone: | [phone] | | | | | right wrist | [phone] | Fax: | | | | | Procedures | Fax: | [phone] | | | | | OT TREAT | [phone] | | +--------+--------+ + + + + [...] | | [address] [place] | [place] [address] | (Primary Dx); Right | | | | [place], [place] | [phone] | wrist pain | | | | [address] | | | | | | [phone] | Nakia Koo OT | | +--------+ [...] | 19 | 9 | | BRACE XCDNMR-YZ-OCB) | | | | | | | [...] Ordering Physician: Jeffrey Gandhi MD Claim #: [id number] Date of Injury: 07/20/2018 Visits since the [...] Deviation: 28 Strength at last Assessment eft Transit Coach Operator Strength L director of securities and real estate trial average: 54.33 lbs L Three Jaw payam average: 11.33 lbs L Lateral pinch trial average: 16.83 lbs Right director of securities and real estate Strength R director of securities and real estate trial average: 24.33 lbs R three jaw payam average: 8.33 lbs R lateral pinch trial average: 10.33 lbs Current Strength Strength: Left Hand Strength - Transit Coach Operator (lbs) L Transit Coach Operator Trial 1: 40 L Transit Coach Operator Trial 2: 46 L Transit Coach Operator Trial 3: 55 L Transit Coach Operator Trial Average: 47 L Three Jaw Payam Trial 1: 12 L Three Jaw Payam Trial 2: 13 L Three Jaw Payam Trial 3: 11 L Three Jaw Payam Trial Average: 12 L Lateral Pinch Trial 1: 17 L Lateral Pinch Trial 2: 17 L Lateral Pinch Trial 3: 18 L Lateral Pinch Trial Average: 17.33 Right Hand Strength - Transit Coach Operator (lbs) R Transit Coach Operator Trial 1: 20 R Transit Coach Operator Trial 2: 25 R Transit Coach Operator Trial 3: 32 R Transit Coach Operator Trial Average: 25.67 R Three Jaw [...] 10/30/2018 Certification To: 01/22/2019 Treatment Plan/Interventions OT [id number] - Therapeutic Jexuhbrf08970 - Therapeutic Fprezeiofy65977 - Self Care/Ho me Genyfjbjjn78623 - Manual Korqmmt54501 - Orthotic/Prosthetic Jwwgodcv65902 - Ircpxjbspg136 34 - Contrast Pspa23560 - Paraffin BathSplinting Moist heat, cold therapy [...] continues to have right wrist, director of securities and real estate and pinch weakness and significant pain (3 [...] right wrist and thumb, and director of securities and real estate and pinch weakness in the right hand [...] Padgett OT - 10/30/2018 4:56 PM PST [facility] OT [address] [place] [address] Occupational Therapy Progress Assessment Date: 10/30/2018 Patient [...] jar: 4 - Severe Difficulty Do heavy board attendant: 4 - Severe Difficulty Carry a shopping [...] Deviation: 28 Strength: Left Hand Strength - Transit Coach Operator (lbs) L Transit Coach Operator Trial 1: 40 L Transit Coach Operator Trial 2: 46 L Transit Coach Operator Trial 3: 55 L Transit Coach Operator Trial Average: 47 L Three Jaw Payam Trial 1: 12 L Three Jaw Payam Trial 2: 13 L Three Jaw Payam Trial 3: 11 L Three Jaw Payam Trial Average: 12 L Lateral Pinch Trial 1: 17 L Lateral Pinch Trial 2: 17 L Lateral Pinch Trial 3: 18 L Lateral Pinch Trial Average: 17.33 Right Hand Strength - Transit Coach Operator (lbs) R Transit Coach Operator Trial 1: 20 R Transit Coach Operator Trial 2: 25 R Transit Coach Operator Trial 3: 32 R Transit Coach Operator Trial Average: 25.67 R Three Jaw [...] continues to have right wrist, director of securities and real estate and pinch weakness and significant pain (3 [...] right wrist and thumb, and director of securities and real estate and pinch weakness in the right hand [...] Goal 2: The pt will have right director of securities and real estate strength of 50 lbs by discharge Goal 2 Status: PARTIALLY MET - Right director of securities and real estate has increased from 20 to 26 lbs since evaluaiton. Left director of securities and real estate is 47 lbs Goal 3: The pt will have increased right pinch strength to 13 lbs by discharge Goal 3 Status: PARTIALLY MET - right pinch is 9 lbs, left is 15 lbs Goal 4: The pt will be independent and compliant with HEP Goal 4 Status: ONGOING - pt reports daily compliance with HEP which includes wrist, director of securities and real estate an d pinch strengthening as well as general UE strengthening Plan Date of Onset: 07/20/2018 Start of Care Date: 08/07/2018 Requested # of Visits: 24 visits 2x/week for 12 weeks Certification From: 10/30/2018 Certification To: 01/22/2019 Treatment Plan/Interventions OT [id number] - Therapeutic Mlofogqi74760 - Therapeutic Uyvaakrjia50841 - Self Care/Ho me Loiegxeajy56953 - Manual Qyfgmlg24349 - Orthotic/Prosthetic Cbatxojs86422 - Wiaapwlsil545 34 - Contrast Qkpi21114 - Paraffin BathSplinting Moist heat, cold therapy [...] | | | | | [place] [address] | | | | | | [phone] | | | | | | | | | | | | Julia Fisher, | | | | | | PT | | +--------+ + + + + | 02/18/ | Appointment | Rehabilitation | Erika Ernst, | | | 2019 | | | DO [address] | | | | | | [place] [address] | | | | | | [phone] | | | | | | | | | | | | Genesis Ayon OT | | +--------+ + + + + | 02/25/ | Office | Primary Care | Erika Ernst, | | | 2019 | Visit | | DO [address] | | | | | | [place] [address] | | | | | | [phone] | | | | | | | [...] | | | | | [place] [address] | | | | | | [phone] | | | | | | | | +--------+ + + + + | 02/27/ | Appointment | Radiology | Dhara, | | | 2019 | | | DWAINE Ross [address] | | | | [address] [place], | | | | | | [place] [address] | | | | | | [phone] | | | | | | | [...] ST | | | | | | [place] [address] | | | | | | [phone] | | | | | | | [...] [place] | | | | | | [address] | | | | | | [phone] | | | | | | | [...] | | | | | [place] [address] | | | | | | [phone] | | | | | | | | | | | | Azul Yeboah, | | | | | | MD [address] | | | | | | [place] | | | | | | [place] [address] | | | | | | [phone] | | | | | | | [...] | | | | | | [place] [address] | | | | | | [phone] | | | | | | | | +--------+ + + + + documented as of this encounter Visit Diagnoses + + | Diagnosis | + + | Radial styloid tenosynovitis - Primary | + + | Right wrist pain Pain in joint, forearm | + + documented in this encounter
--- OUTSIDE RECORDS SUMMARY | ~2020-02-18 | XMS | Encounter Summary ---
Demographics + + + | Address | [address] | | | [place] [address] | + + + | Home Phone [...] Team Providers + +------+ + | Care Printing And Stamping Supervisor Name | Role | Phone | [...] | HOSPITAL XRAY [address] | MD Carlos [address] | | | | | [address] | [place] | | | | | [place] | [place], [place] [address] | | | | | [address] | [phone] | | | | | [phone] | | | +--------+ + + + [...] | | | | | [place] [address] | | | | | | [phone] | | | | | | | | | | | | Julia iFsher, | | | | | | PT | | +--------+ + + + + | 02/18/ | Appointment | Rehabilitation | Erika Ernst, | | | 2019 | | | DO [address] | | | | | | [place] [address] | | | | | | [phone] | | | | | | | | | | | | Genesis Ayon OT | | +--------+ + + + + | 02/25/ | Office | Primary Care | Erika Ernst, | | | 2019 | Visit | | DO [address] | | | | | | [place] [address] | | | | | | [phone] | | | | | | | [...] | | | | | [place] [address] | | | | | | [phone] | | | | | | | | +--------+ + + + + | 02/27/ | Appointment | Radiology | Dhara, | | | 2019 | | | DWAINE Ross [address] | | | | | | [address] [facility], | | | | | | [place] [address] | | | | | | [phone] | | | | | | | | +--------+ + + + + | 03/04/ | Appointment | Rehabilitation | Genesis Ayon OT | | | 2019 | | | | | +--------+ + + + + | 03/09/ | Office | Orthopedic Surgery | Jeffrey Gandhi, | | | 2019 | Visit | | [address] [facility] | | | | | | [place] [address] | | | | | | [phone] | | | | | | | [...] [place] | | | | | | [address] | | | | | | [phone] | | | | | | | [...] | | | | | [place] [address] | | | | | | [phone] | | | | | | | | | | | | Azul Yeboah, | | | | | | MD [address] | | | | | | [place] | | | | | | [place] [address] | | | | | | [phone] | | | | | | | | +--------+ + + + + | 04/08/ | Appointment | Nutrition | Janel Webster | | | 2019 | | | [place], [place] | | +--------+ + + + + | 05/21/ | Office | Neurology | Dhara, | | | 2019 | Visit | | Cody SAND TEMPERER [address] | | | | | | [address] [facility], | | | | | | [place] [address] | | | | | | [phone] | | | | | | | [...] | Normal right ankle x-rays. JOB #: [id number] | | | Read By: BARRON YING [...] | | | | | JOB #: [id number] | | | | Read By: BARRON [...] interval change. | | | JOB #: [id number] Read By: BARRON Narayanan | | | [...] interval change. D: | | 01/22/2015JOB #: [id number] Read By: BARRON YING MD Released By: [...] | | | | | |JOB #: [id number] | | | |Read By: BARRON YING MD | | | |Released By: BARRON YING MD | |Date: 01/22/2015 20:18 | | | | | + + documented in this encounter Visit Diagnoses Not on filedocumented in this encounter"
--- OUTSIDE RECORDS SUMMARY | ~2020-02-18 | XMS | Encounter Summary ---
Demographics + + + | Address | [address] | | | [place] [address] | + + + | Home Phone [...] Providers + +------+ + | Care Vending Manager Name | Role | Phone | + +------+ + PCP | Unavailable | + +------+ + Encounter Details +--------+ + + + + | Date | Type | Department | Care Team | Description | +--------+ + + + + | 08/02/ | [facility] | [place] [facility] | Erika Ernst, | | | 2015 | Encounter | [facility] | DO [address] | | | | | MEDICAL CLIN[facility] [address] | [place] [address] | | | | | [address] [place], | [phone] | | | | | [place] [address] | | | | | | [phone] | | | +--------+ + + + [...] | | | | | [place], [place] [address] | | | | | | [phone] | | | | | | | | | | | | Julia Fisher, | | | | | | PT | | +--------+ + + + + | 02/18/ | Appointment | Rehabilitation | Erika Ernst, | | | 2019 | | | DO [address] [place] | | | | | | [place] [address] | | | | | | [phone] | | | | | | | | | | | | Genesis Ayon, SUSAN | | +--------+ + + + + | 02/25/ | Office | Primary Care | Erika Ernst, | | | 2019 | Visit | | DO [address] | | | | | | [place] [address] | | | | | | [phone] | | | | | | | [...] | | | | | [place] [address] | | | | | | [phone] | | | | | | | | +--------+ + + + + | 02/27/ | Appointment | Radiology | Dhara, | | 2019 | | | DWAINE Ross [address] | | | | | | [address] [facility] [place], | | | | | | [place] [address] | | | | | | [phone] | | | | | | | [...] | | | | | [place] [address] | | | | | | [phone] | | | | | | | [...] [place] | | | | | | [address] | | | | | | [phone] | | | | | | | [...] | | | | | [place] [address] | | | | | | [phone] | | | | | | | | | | | | Azul Yeboah, | | | | | | MD [address] | | | | | | [place] | | | | | | [place] [address] | | | | | | [phone] | | | | | | | [...] | | | | | | [place] [address] | | | | | | [phone] | | | | | | | | +--------+ + + + + documented as of this encounter Visit Diagnoses Not on filedocumented in this encounter"
--- OUTSIDE RECORDS SUMMARY | ~2020-02-18 | XMS | Encounter Summary ---
Demographics + + + | Address | [address] | | | [place] [address] | + + + | Home Phone [...] Team Providers + +------+ + | Care Events Specialist Name | Role | Phone | [...] [place] | | | | | | [address] | | | | | | [phone] | | | +--------+ + + + [...] | | | | | [place] [address] | | | | | | [phone] | | | | | | | | | | | | Julia Fisher, | | | | | | PT | | +--------+ + + + + | 02/18/ | Appointment | Rehabilitation | Erika Ernst, | | | 2019 | | | DO [address] | | | | | | [place] [address] | | | | | | [phone] | | | | | | | | | | | | Genesis Ayon OT | | +--------+ + + + + | 02/25/ | Office | Primary Care | Erika Ernst, | | | 2019 | Visit | | DO [address] | | | | | | [place] [address] | | | | | | [phone] | | | | | | | [...] | | | | | [place] [address] | | | | | | [phone] | | | | | | | | +--------+ + + + + | 02/27/ | Appointment | Radiology | Dhara | | | 2019 | | | DWAINE Ross [address] | | [address] [place], | | | | | | [place] [address] | | | | | | [phone] | | | | | | | | +--------+ + + + + | 03/04/ | Appointment | Rehabilitation | Genesis Ayon OT | | | 2019 | | | | | +--------+ + + + + | 03/09/ | Office | Orthopedic Surgery | Jeffrey Gandhi, | | | 2019 | Visit | | [address] | | | | | | [place] [address] | | | | | | [phone] | | | | | | | [...] [place] | | | | | | [address] | | | | | | [phone] | | | | | | | [...] | | | | | [place] [address] | | | | | | [phone] | | | | | | | | | | | | Azul Yeboah, | | | | | | [address] | | | | | | [place] | | | | | | [place] [address] | | | | | | [phone] | | | | | | | [...] | | | | | | [place] [address] | | | | | | [phone] | | | | | | | | +--------+ + + + + documented as of this encounter Visit Diagnoses + + | Diagnosis | + + | Radial styloid tenosynovitis - Primary | + + | Right wrist pain Pain in joint, forearm | + + documented in this encounter"
--- OUTSIDE RECORDS SUMMARY | ~2020-02-18 | XMS | Encounter Summary ---
Demographics + + + | Address | [address] | | | [place] [address] | + + + | Home Phone [...] Team Providers + +------+ + | Care Histology Teacher Name | Role | Phone | + +------+ + PCP | Unavailable | + +------+ + Encounter Details +--------+ + + + + | Date | Type | Department | Care Team | Description | +--------+ + + + + | 09/17/ | [facility] [place] | Denise Mcgregor | | | 2015 | Encounter | [facility] | G, SOFTWARE LEAD | | | | | MEDICAL CLINIC [address] | | | | | | [facility] | | | | | | [place] [address] | | | | | | [phone] | | | +--------+ + + + [...] | | | | | [place] [address] | | | | | | [phone] | | | | | | | | | | | | Julia Fisher, | | | | | | PT | | +--------+ + + + + | 02/18/ | Appointment | Rehabilitation | Erika Ernst, | | | 2019 | | | DO [address] | | | | | | [place] [address] | | | | | | [phone] | | | | | | | | | | | | Genesis Ayon OT | | +--------+ + + + + | 02/25/ | Office | Primary Care | Erika Ernst, | | | 2019 | Visit | | DO [address] | | | | | | [place] [address] | | | | | | [phone] | | | | | | | [...] | | | | | [place] [address] | | | | | | [phone] | | | | | | | | +--------+ + + + + | 02/27/ | Appointment | Radiology | Dhara, | | | 2019 | | | DWAINE Ross [address] | | | | | | 4TH [facility], | | | | | | [place] [address] | | | | | | [phone] | | | | | | | [...] [place] | | | | | | [place] [address] | | | | | | [phone] | | | | | | | [...] [place] | | | | | | [address] | | | | | | [phone] | | | | | | | [...] | | | | | [place] [address] | | | | | | [phone] | | | | | | | | | | | | Azul Yeboah, | | | | | | MD [address] | | | | | | [place] | | | | | | [place] [address] | | | | | | [phone] | | | | | | | [...] | | | | | | [place] [address] | | | | | | [phone] | | | | | | | | +--------+ + + + + documented as of this encounter Visit Diagnoses Not on filedocumented in this encounter"
--- OUTSIDE RECORDS SUMMARY | ~2020-02-18 | XMS | Encounter Summary ---
Demographics + + + | Address | [address] | | | [place] [address] | + + + | Home Phone [...] Providers + +------+ + | Care Dental Technician Name | Role | Phone | [...] cough | | 2020 | Visit | [facility] | TOP LOADER-LINE ASSIGNER [address] | (Primary Dx); Sore | | | | [facility] [address] | [address] | throat | | | | [address] [place], | [place] [address] | | | | | [place] [address] | [phone] | | | | | [phone] | | | +--------+---------+ + + + [...] was given Spiriva and prednisone by her transformer maker to treat it and nam s been [...] signed by: DWAINE Tavera 11/26/2019 5:51 PM [facility], Walk-in [facility] Note: Part of this report was transcribed using voice recognition software. Every effort wa s made to ensure accuracy. However, inadvertent computerized funeral home assistant errors may be pre sent. This documentation [...] | 2019 | | | DO [address] [place] [address] | | | | | | [place] [address] | | | | | | [phone] | | | | | | | | | | | | Julia Fisher, | | | | | | PT | | +--------+ + + + + | 02/18/ | Appointment | Rehabilitation | Erika Ernst, | | | 2019 | | | DO [address] | | | | | | [place] [address] | | | | | | [phone] | | | | | | | | | | | | Genesis Ayon, OT | | +--------+ + + + + | 02/25/ | Office | Primary Care | Erika Ernst, | | | 2019 | Visit | | DO [address] | | | | | | [place] [address] | | | | | | [phone] | | | | | | | [...] | | | | | [place] [address] | | | | | | [phone] | | | | | | | | +--------+ + + + + | 02/27/ | Appointment | Radiology | Dhara, | | 2019 | | | DWAINE Ross [address] | | | | | | [address] [place], | | | | | | [place] [address] | | | | | | [phone] | | | | | | | | +--------+ + + + + | 03/04/ | Appointment | Rehabilitation | Genesis Ayon OT | | | 2019 | | | | | +--------+ + + + + | 03/09/ | Office | Orthopedic Surgery | Jeffrey Gandhi, | | | 2019 | Visit | | [address] | | | | | | [place] [address] | | | | | | [phone] | | | | | | | [...] [place] | | | | | | [address] | | | | | | [phone] | | | | | | | [...] | | | | | [place] [address] | | | | | | [phone] | | | | | | | | | | | | Azul Yeboah, | | | | | | MD [address] | | | | | | [place] | | | | | | [place] [address] | | | | | | [phone] | | | | | | | [...] | | | | | | [place] [address] | | | | | | [phone] | | | | | | | [...] + + | [place] [facility] | [address] | [place] | [phone] | | [facility] | | [address] | | + + + + + [...]
--- OUTSIDE RECORDS SUMMARY | ~2020-02-18 | XMS | Encounter Summary ---
Demographics + + + | Address | [address] | | | [place] [address] | + + + | Home Phone [...] Providers + +------+ + | Care Security Tester Name | Role | Phone | + +------+ + PCP | Unavailable | + +------+ + Encounter Details +--------+ + + + + | Date | Type | Department | Care Team | Description | +--------+ + + + + | 08/16/ | [facility] [place] | Denise Mcgregor | | | 2016 | Encounter | [facility] | G, LABORATORY [facility] | | | | | MEDICAL CLINIC [address] | | | | | | [facility] | | | | | | [place] [address] | | | | | | [phone] | | | +--------+ + + + [...] | | | | | [place] [address] | | | | | | [phone] | | | | | | | | | | | | Julia Fisher, | | | | | | PT | | +--------+ + + + + | 02/18/ | Appointment | Rehabilitation | Erika Ernst, | | 2019 | | | DO [address] | | | | | | [place] [address] | | | | | | [phone] | | | | | | | | | | | | Genesis Ayon, SUSAN | | +--------+ + + + + | 02/25/ | Office | Primary Care | Erika Ernst, | | | 2019 | Visit | | DO [address] [place] [address] | | | | | | [place] [address] | | | | | | [phone] | | | | | | | [...] | | | | | [place] [address] | | | | | | [phone] | | | | | | | | +--------+ + + + + | 02/27/ | Appointment | Radiology | Dhara, | | | 2019 | | | DWAINE Ross [address] | | | | | | [address] [place], | | | | | | [place] [address] | | | | | | [phone] | | | | | | | [...] | | | | | [place] [address] | | | | | | [phone] | | | | | | | [...] [place] | | | | | | [address] | | | | | | [phone] | | | | | | | [...] | | | | | [place] [address] | | | | | | [phone] | | | | | | | | | | | | Azul Yeboah, | | | | | | MD [address] | | | | | | [place] | | | | | | [place] [address] | | | | | | [phone] | | | | | | | [...] [address] | | | | | | [phone] | | | | | | | | +--------+ + + + + documented as of this encounter Visit Diagnoses Not on filedocumented in this encounter"
--- OUTSIDE RECORDS SUMMARY | ~2020-02-18 | XMS | Encounter Summary ---
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 She has appointment with bail bondsman Jun 23 for her asthma. No increased [...] [facility] tenosynovectomy on 03/20/19 Plan: Referral to [facility] oral surgeon. Xray right ankle and [...] [address] | | | | | | [place] [address] | | | | | | [phone] | | | | | | | | | | | | Julia Fisher, | | | | | | PT | | +--------+ + + + + | 02/18/ | Appointment | Rehabilitation | Erika Ernst, | | | 2019 | | | DO [address] | | | | | | [place] [address] | | | | | | [phone] | | | | | | | | | | | | Genesis Ayon OT | | +--------+ + + + + | 02/25/ | Office | Primary Care | Erika Ernst, | | | 2019 | Visit | | DO [address] | | | | | | [place] [address] | | | | | | [phone] | | | | | | | [...] | | | | | [place] [address] | | | | | | [phone] | | | | | | | | +--------+ + + + + | 02/27/ | Appointment | Radiology | Dhara, | | | 2019 | | | DWAINE Ross [address] | | | | | | [address] [place], | | | | | | [place] [address] | | | | | | [phone] | | | | | | | [...] | | | | | [place] [address] | | | | | | [phone] | | | | | | | [...] [place] | | | | | | [address] | | | | | | [phone] | | | | | | | [...] [address] | | | | | | [phone] | | | | | | | | | | | | Azul Yeboah, | | | | | | MD [address] | | | | | | [place] | | | | | | [place] [address] | | | | | | [phone] | | | | | | | [...] | | | | | | [place] [address] | | | | | | [phone] | | | | | | | [...]
--- OUTSIDE RECORDS SUMMARY | ~2020-02-18 | XMS | Encounter Summary ---
Demographics + + + | Address | [address] | | | [place] [address] | + + + | Home Phone [...] Team Providers + +------+ + | Care Homicide Squad Commanding Officer Name | Role | Phone | + +------+ + PCP | Unavailable | + +------+ + Encounter Details +--------+ + + + + | Date | Type | Department | Care Team | Description | +--------+ + + + + | 08/06/ | [facility] | Caro Zendejas | | | 2012 | Encounter | [facility] | Vale, DRILL PRESS SET UP OPERATOR [address] | | | | | [facility] [address] | [facility], [place] | | | | | 4TH [facility], | [address] | | | | | [place] [address] | [phone] | | | | | [phone] | | | +--------+ + + + [...] | | | | | [place] [address] | | | | | | [phone] | | | | | | | | | | | | Julia Fisher, | | | | | | PT | | +--------+ + + + + | 02/18/ | Appointment | Rehabilitation | Eriak Ernst, | | | 2019 | | | DO [address] [place] | | | | | | [place] [address] | | | | | | [phone] | | | | | | | | | | | | Genesis Ayon, OT | | +--------+ + + + + | 02/25/ | Office | Primary Care | Erika Ernst, | | | 2019 | Visit | | DO [address] | | | | | | [place] [address] | | | | | | [phone] | | | | | | | [...] | | | | | [place] [address] | | | | | | [phone] | | | | | | | | +--------+ + + + + | 02/27/ | Appointment | Radiology | Dhara, | | | 2019 | | | DWAINE [address] | | | | | | 4TH [facility], | | | | | | [place] [address] | | | | | | [phone] | | | | | | | | +--------+ + + + + | 03/04/ | Appointment | Rehabilitation | Genesis Ayon OT | | | 2019 | | | | | +--------+ + + + + | 03/09/ | Office | Orthopedic Surgery | Jeffrey Gandhi, | | | 2019 | Visit | | [address] | | | | | | [place] [address] | | | | | | [phone] | | | | | | | [...] [place] | | | | | | [address] | | | | | | [phone] | | | | | | | [...] | | | | | [place] [address] | | | | | | [phone] | | | | | | | | | | | | Azul Yeboah, | | | | | | MD [address] | | | | | | [place] | | | | | | [place] [address] | | | | | | [phone] | | | | | | | [...] | | | | | | [place] [address] | | | | | | [phone] | | | | | | | | +--------+ + + + + documented as of this encounter Visit Diagnoses Not on filedocumented in this encounter"
--- OUTSIDE RECORDS SUMMARY | ~2020-02-18 | XMS | Encounter Summary ---
Demographics + + + | Address | [address] | | | [place] [address] | + + + | Home Phone [...] Providers + +------+ + | Care Frame Straightener Name | Role | Phone | + +------+ + PCP | Unavailable | + +------+ + Encounter Details +--------+ + + + + | Date | Type | Department | Care Team | Description | +--------+ + + + + | 10/12/ | [facility] | [facility] | Erika Ernts, | | | 2017 | Encounter | [facility] | DO [address] | | | | | MEDICAL CLINIC [address] | [facility] [place] [place] [address] | | | | | [address] [place], | [phone] | | | | | [place] [address] | | | | | | [phone] | | | +--------+ + + + [...] | | | | | [place] [address] | | | | | | [phone] | | | | | | | | | | | | Julia Fisher, | | | | | | PT | | +--------+ + + + + | 02/18/ | Appointment | Rehabilitation | Erika Ernst, | | | 2019 | | | DO [address] [place] | | | | | | [place] [address] | | | | | | [phone] | | | | | | | | | | | | Genesis Ayon OT | | +--------+ + + + + | 02/25/ | Office | Primary Care | Erika Ernst, | | | 2019 | Visit | | DO [address] | | | | | | [place] [address] | | | | | | [phone] | | | | | | | [...] | | | | | [place] [address] | | | | | | [phone] | | | | | | | | +--------+ + + + + | 02/27/ | Appointment | Radiology | Dhara, | | | 2019 | | | DWAINE [address] | | | | | | 4TH [facility], | | | | | | [place] [address] | | | | | | [phone] | | | | | | | | +--------+ + + + + | 03/04/ | Appointment | Rehabilitation | Genesis Ayon OT | | | 2019 | | | | | +--------+ + + + + | 03/09/ | Office | Orthopedic Surgery | Jeffrey Gandhi, | | 2019 | Visit | | [address] | | | | | | [place] [address] | | | | | | [phone] | | | | | | | [...] [place] | | | | | | [address] | | | | | | [phone] | | | | | | | [...] | | | | | [place] [address] | | | | | | [phone] | | | | | | | | | | | | Azul Yeboah, | | | | | | MD [address] | | | | | | [place] | | | | | | [place] [address] | | | | | | [phone] | | | | | | | [...] | | | | | | [place] [address] | | | | | | [phone] | | | | | | | | +--------+ + + + + documented as of this encounter Visit Diagnoses Not on filedocumented in this encounter"
--- OUTSIDE RECORDS SUMMARY | ~2020-02-18 | XMS | Encounter Summary ---
Demographics + + + | Address | [address] | | | [place] [address] | + + + | Home Phone [...] Team Providers + +------+ + | Care Heater Installer Name | Role | Phone | [...] Other (attending | | 2020 | | [facility] | [address] [facility] | physician for | | | | MEDICAL CLINIC [address] | [place] [place] [address] | Workmankim Comp) | | | | 4TH [facility], | [phone] | | | | | [place] [address] | | | | | | [phone] | | | +--------+ + + + [...] | | | | | [place] [address] | | | | | | [phone] | | | | | | | | | | | | Julia Fisher, | | | | | | PT | | +--------+ + + + + | 02/18/ | Appointment | Rehabilitation | Erika Ernst, | | | 2019 | | | DO [address] [place] | | | | | | [place] [address] | | | | | | [phone] | | | | | | | | | | | | Genesis Ayon OT | | +--------+ + + + + | 02/25/ | Office | Primary Care | Erika Ernst, | | | 2019 | Visit | | DO [address] | | | | | | [place] [address] | | | | | | [phone] | | | | | | | [...] | | | | | [place] [address] | | | | | | [phone] | | | | | | | | +--------+ + + + + | 02/27/ | Appointment | Radiology | Dhara, | | | 2019 | | | DWAINE [address] | | | | | | [facility] | | | | | | [place] [address] | | | | | | [phone] | | | | | | | | +--------+ + + + + | 03/04/ | Appointment | Rehabilitation | Genesis Ayon OT | | 2019 | | | | | +--------+ + + + + | 03/09/ | Office | Orthopedic Surgery | Jeffrey Gandhi, | | 2019 | Visit | | [address] | | | | | | [place] [address] | | | | | | [phone] | | | | | | | [...] [place] | | | | | | [address] | | | | | | [phone] | | | | | | | [...] | | | | | [place] [address] | | | | | | [phone] | | | | | | | | | | | | Azul Yeboah, | | | | | | MD [address] | | | | | | [place] | | | | | | [place] [address] | | | | | | [phone] | | | | | | | [...] | | | | | | [place] [address] | | | | | | [phone] | | | | | | | | +--------+ + + + + documented as of this encounter Visit Diagnoses Not on filedocumented in this encounter"
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
--- OUTSIDE RECORDS SUMMARY | ~2020-02-18 | XMS | Encounter Summary ---
Demographics + + + | Address | [address] | | | [place] [address] | + + + | Home Phone [...] Team Providers + +------+ + | Care Core Baker Name | Role | Phone | + [...] CLINIC [address] | [place] [address] | call back re:appt | | | | [facility], | [phone] | w/ & | | | | [place] [address] | | clarify dosage of | | | | [phone] | | Iron she's to be | [...] | | | | | [place] [address] | | | | | | [phone] | | | | | | | | | | | | Julia Fisher, | | | | | | PT | | +--------+ + + + + | 02/18/ | Appointment | Rehabilitation | Erika Ernst, | | | 2019 | | | DO [address] | | | | | | [place] [address] | | | | | | [phone] | | | | | | | | | | | | Genesis Ayon OT | | +--------+ + + + + | 02/25/ | Office | Primary Care | Erika Ernst, | | | 2019 | Visit | | DO [address] | | | | | | [place] [address] | | | | | | [phone] | | | | | | | [...] | | | | | [place] [address] | | | | | | [phone] | | | | | | | | +--------+ + + + + | 02/27/ | Appointment | Radiology | Dhara | | | 2019 | | | DWAINE Ross [address] | | | | | | [address] [place], | | | | | | [place] [address] | | | | | | [phone] | | | | | | | [...] ST | | | | | | [place] [address] | | | | | | [phone] | | | | | | | [...] [place] | | | | | | [address] | | | | | | [phone] | | | | | | | [...] | | | | | [place] [address] | | | | | | [phone] | | | | | | | | | | | | Azul Yeboah, | | | | | | [address] | | | | | | [place] | | | | | | [place] [address] | | | | | | [phone] | | | | | | | [...] | | | | | | [place] [address] | | | | | | [phone] | | | | | | | | +--------+ + + + + documented as of this encounter Visit Diagnoses Not on filedocumented in this encounter"
--- OUTSIDE RECORDS SUMMARY | ~2020-02-18 | XMS | Encounter Summary ---
Demographics + + + | Address | [address] | | | [place] [address] | + + + | Home Phone [...] Team Providers + +------+ + | Care Powerhouse Laborer Name | Role | Phone | + +------+ + | Erika Ernst DO | PCP | | + +------+ + Encounter Details +--------+ + + + + | Date | Type | Department | Care Team | Description | +--------+ + + + + | 09/02/ | [facility] | [place] | Anthony Alvarado MD | Left thyroid nodule | | 2019 | Encounter | [facility] Ultrasound | [address] [place] | | | | | [address] [place] | [place], [place] | | | | | [place] | [address] | | | | | [address] | [phone] | | | | | [phone] | | | | | | | [...] | | | | | [place] [address] | | | | | | [phone] | | | | | | | | | | | | Julia Fisher, | | | | | | PT | | +--------+ + + + + | 02/18/ | Appointment | Rehabilitation | Erika Ernst, | | | 2019 | | | DO [address] [place] | | | | | | [place] [address] | | | | | | [phone] | | | | | | | | | | | | Genesis Ayon OT | | +--------+ + + + + | 02/25/ | Office | Primary Care | Erika Ernst, | | | 2019 | Visit | | DO [address] | | | | | | [place] [address] | | | | | | [phone] | | | | | | | [...] | | | | | [place] [address] | | | | | | [phone] | | | | | | | | +--------+ + + + + | 02/27/ | Appointment | Radiology | Dhara, | | | 2019 | | | [address] Ross [address] | | | | | | [address] [place], | | | | | | [place] [address] | | | | | | [phone] | | | | | | | [...] | | | | [place] [address] | | | | | | [phone] | | | | | | | [...] [place] | | | | | | [address] | | | | | | [phone] | | | | | | | [...] | | | | | [place] [address] | | | | | | [phone] | | | | | | | | | | | | Azul Yeboah, | | | | | | MD [address] | | | | | | [place] | | | | | | [place] [address] | | | | | | [phone] | | | | | | | [...] | | | | | | [place] [address] | | | | | | [phone] | | | | | | | [...] PHYSICIAN: Chris Bedolla M.D. PATIENT NAME: | [facility] | | ANDREA SUH GENDER: Bre : 1990 | INCYTE [...] | | contents and follicular cells seen ([place] category 2) (see | | | Description) [...] interpretation was performed by | | | [employer], [address] | | | [place] [address] (Air Export Operations Agent: Desi Perez MD; CLIA# | | | [id number]). Technical preparation was performed by [employer] | | | [employer], [address] [place] [address] | | | (Air Export Operations Agent: Carlos Eduardo Mayorga D.O.; CLIA#: [id number]). | | | Diagnostician: Chasity HACKETT ([facility]) Journeyman Level Acoustic Analyst | | | Diagnostician: Erick Orr MD Pathologist Electronically | | | Signed 09/06/2019 | | + + + + +---------+ + + | Performing | Address | City/State/[facility] | Phone Number | [...]
--- OUTSIDE RECORDS SUMMARY | ~2020-02-18 | XMS | Encounter Summary ---
Demographics + + + | Address | [address] | | | [place] [address] | + + + | Home Phone [...] Providers + +------+ + | Care Television Maintenance Man Name | Role | Phone | [...] | MEDICAL CLINIC [address] | [place] [address] | | | | | [address] [place], | [phone] | | | | | [place] [address] | | | | | | [phone] | | | +--------+ + + + [...] | | | | | [place] [address] | | | | | | [phone] | | | | | | | | | | | | Forma, Julia M, | | | | | | PT | | +--------+ + + + + | 02/18/ | Appointment | Rehabilitation | Erika Ernst, | | | 2019 | | | DO [address] [place] | | | | | | [place] [address] | | | | | | [phone] | | | | | | | | | | | | Genesis Ayon OT | | +--------+ + + + + | 02/25/ | Office | Primary Care | Erika Ernst, | | | 2019 | Visit | | DO [address] [place] | | | | | | [place] [address] | | | | | | [phone] | | | | | | | [...] | | | | | [place] [address] | | | | | | [phone] | | | | | | | | +--------+ + + + + | 02/27/ | Appointment | Radiology | Dhara, | | 2019 | | | [address] | | | | | | 4TH [facility], | | | | | | [place] [address] | | | | | | [phone] | | | | | | | [...] [place] | | | | | | [place] [address] | | | | | | [phone] | | | | | | | [...] [place] | | | | | | [address] | | | | | | [phone] | | | | | | | [...] | | | | | [place] [address] | | | | | | [phone] | | | | | | | | | | | | Azul Yeboah, | | | | | | MD [address] | | | | | | [place] | | | | | | [place] [address] | | | | | | [phone] | | | | | | | [...] | | | | | | [place] [address] | | | | | | [phone] | | | | | | | | +--------+ + + + + documented as of this encounter Visit Diagnoses Not on filedocumented in this encounter"
--- OUTSIDE RECORDS SUMMARY | ~2020-02-18 | XMS | Encounter Summary ---
Demographics + + + | Address | [address] | | | [place] [address] | + + + | Home Phone [...] Providers + +------+ + | Care Lumber Handler Name | Role | Phone | [...] | CENTER [address] | [facility] | | | | | DR [place] | [place] [address] | | | | | [address] | [phone] | | | | | [phone] | | | +--------+ + + + [...] | | | | | [place] [address] | | | | | | [phone] | | | | | | | | | | | | Julia Fisher, | | | | | | PT | | +--------+ + + + + | 02/18/ | Appointment | Rehabilitation | Erika Ernst, | | | 2019 | | | DO [address] [place] | | | | | | [place] [address] | | | | | | [phone] | | | | | | | | | | | | Genesis Ayon, OT | | +--------+ + + + + | 02/25/ | Office | Primary Care | Erika Ernst, | | | 2019 | Visit | | DO [address] [place] | | | | | | [place] [address] | | | | | | [phone] | | | | | | | [...] | | | | | [place] [address] | | | | | | [phone] | | | | | | | | +--------+ + + + + | 02/27/ | Appointment | Radiology | Dhara, | | | 2019 | | | [address] | | | | | | [facility] | | | | | | [place] [address] | | | | | | [phone] | | | | | | | | +--------+ + + + + | 03/04/ | Appointment | Rehabilitation | Genesis Ayon OT | | 2019 | | | | | +--------+ + + + + | 03/09/ | Office | Orthopedic Surgery | Jeffrey Gandhi, | | 2019 | Visit | | [address] [facility] | | | | | | [place] [address] | | | | | | [phone] | | | | | | | [...] [place] | | | | | | [address] | | | | | | [phone] | | | | | | | [...] | | | | | [place] [address] | | | | | | [phone] | | | | | | | | | | | | Azul Yeboah, | | | | | | [address] | | | | | | [place] | | | | | | [place] [address] | | | | | | [phone] | | | | | | | [...] | | | | | | [place] [address] | | | | | | [phone] | | | | | | | | +--------+ + + + + documented as of this encounter Visit Diagnoses Not on filedocumented in this encounter"
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
--- OUTSIDE RECORDS SUMMARY | ~2020-02-18 | XMS | Encounter Summary ---
Demographics + + + | Address | [address] | | | [place] [address] | + + + | Home Phone [...] Team Providers + +------+ + | Care Screw Machine Tender Name | Role | Phone [...] Medication Related | | 2020 | | [facility] | DO [address] | (tiZANidine | | | | MEDICAL CL[facility]IC [facility] | [facility] [address] | (ZANAFLEX) 4 mg | | | | [address] [place], | [phone] | tablet) | | | | [place] [address] | | | | | | [phone] | | | +--------+ + + + [...] | | | | | [place] [address] | | | | | | [phone] | | | | | | | | | | | | Julia Fisher, | | | | | | PT | | +--------+ + + + + | 02/18/ | Appointment | Rehabilitation | Erika Ernst, | | | 2019 | | | DO [address] [place] | | | | | | [place] [address] | | | | | | [phone] | | | | | | | | | | | | Genesis Ayon OT | | +--------+ + + + + | 02/25/ | Office | Primary Care | Erika Ernst, | | | 2019 | Visit | | DO [address] [place] | | | | | | [place] [address] | | | | | | [phone] | | | | | | | [...] | | | | | [place] [address] | | | | | | [phone] | | | | | | | | +--------+ + + + + | 02/27/ | Appointment | Radiology | Dhara, | | | 2019 | | | [address] | | | | | | [address] [place], | | | | | | [place] [address] | | | | | | [phone] | | | | | | | | +--------+ + + + + | 03/04/ | Appointment | Rehabilitation | Genesis Ayon OT | | | 2019 | | | | | +--------+ + + + + | 03/09/ | Office | Orthopedic Surgery | Jeffrey Gandhi, | | | 2019 | Visit | | [address] | | | | | | [place] [address] | | | | | | [phone] | | | | | | | [...] [place] | | | | | | [address] | | | | | | [phone] | | | | | | | [...] | | | | | [place] [address] | | | | | | [phone] | | | | | | | | | | | | Azul Yeboah, | | | | | | [address] | | | | | | [place] | | | | | | [place] [address] | | | | | | [phone] | | | | | | | [...] | | | | | | [place] [address] | | | | | | [phone] | | | | | | | | +--------+ + + + + documented as of this encounter Visit Diagnoses Not on filedocumented in this encounter"
--- OUTSIDE RECORDS SUMMARY | ~2020-02-18 | XMS | Encounter Summary ---
Demographics + + + | Address | [address] | | | [place] [address] | + + + | Home Phone [...] + +------+ + | Care Manager Of Drilling Name | Role | Phone | + [...] | Diagnoses | Klever, | [facility] | | | Services | Surgery | Sprain of | Erika A, DO | Orthopedic | | | Required | | right hand, | [address] | [address] | | | | | subsequent | [place], | [place] | | | | | encounter | [place] [address] | [place], [place] | | | | | Procedures | Phone: | [address] | | | | | [place] | [phone] | Phone: | | | | | | Fax: | [phone] | | | | | | [phone] | Fax: | | | | | | | [phone] | +--------+ + + + + + [...] DR HAYS | [address] | right [place] | | | | [place] | [place] [address] | tenosynovectomy on | | | | [address] | [phone] | 03/20/19 | | | | [phone] | | | +--------+---------+ + + + [...] Tendon; Surgeon: Inocencio Noriega MD; Location: [facility] SURGERY RIGHT KIDNER PROCEDURE 01/20/2016 Surgeon: Fani Mahajan MD; Location: [facility] TENDON RELEASE TONSILLECTOMY WISDOM TOOTH EXTRACTION Family History Problem Relation Age of Onset Other (see comment) Mother gallbladder disease Diabetes Mother Heart disease Mother Hypertension Father Other (see comment) Father arrhymthmia Breast cancer Sister Breast cancer Maternal Grandmother Heart attack Maternal Aunt [place] Hypertension Maternal Uncle Social History Tobacco Use [...] made to ensure accuracy. However, inadvertent computerized general contractor errors may be pre sent. This documentation prepared by Christel Sanz medical pathology teacher. All aspects of this chart re viewed [...] | | | | | [place] [address] | | | | | | [phone] | | | | | | | | | | | | Julia Fisher, | | | | | | PT | | +--------+ + + + + | 02/18/ | Appointment | Rehabilitation | Erika Ernst, | | | 2019 | | | DO [address] | | | | | | [place] [address] | | | | | | [phone] | | | | | | | | | | | | Genesis Ayon, SUSAN | | +--------+ + + + + | 02/25/ | Office | Primary Care | Erika Ernst, | | | 2019 | Visit | | DO [address] [place] [address] | | | | | | [place] [address] | | | | | | [phone] | | | | | | | [...] | | | | | [place] [address] | | | | | | [phone] | | | | | | | | +--------+ + + + + | 02/27/ | Appointment | Radiology | Dhara, | | | 2019 | | | [address]WA[address] Ross [address] | | | | | | [address] [place], | | | | | | [place] [address] | | | | | | [phone] | | | | | | | [...] | | | | | | [place] [address] | | | | | | [phone] | | | | | | | [...] [place] | | | | | | [address] | | | | | | [phone] | | | | | | | [...] | | | | | [place] [address] | | | | | | [phone] | | | | | | | | | | | | Azul Yeboah, | | | | | | MD [address] | | | | | | [place] | | | | | | [place] [address] | | | | | | [phone] | | | | | | | [...] | | | | | | [place] [address] | | | | | | [phone] | | | | | | | [...]
--- OUTSIDE RECORDS SUMMARY | ~2020-02-18 | XMS | Encounter Summary ---
Demographics + + + | Address | [address] | | | [place] [address] | + + + | Home Phone [...] Providers + +------+ + | Care Software Applications Specialist Name | Role | Phone | [...] Cough | | 2019 | | [facility] | DO [address] | | | | | MEDICAL CLINIC [address] | [place] [address] | | | | | [address] [place], | [phone] | | | | | [place] [address] | | | | | | [phone] | | | +--------+ + + + [...] | | | | | [place] [address] | | | | | | [phone] | | | | | | | | | | | | Julia Fisher, | | | | | | PT | | +--------+ + + + + | 02/18/ | Appointment | Rehabilitation | Erika Ernst, | | | 2019 | | | DO [address] [place] | | | | | | [place] [address] | | | | | | [phone] | | | | | | | | | | | | Genesis Ayon OT | | +--------+ + + + + | 02/25/ | Office | Primary Care | Erika Ernst, | | | 2019 | Visit | | DO [address] | | | | | | [place] [address] | | | | | | [phone] | | | | | | | [...] | | | | | [place] [address] | | | | | | [phone] | | | | | | | | +--------+ + + + + | 02/27/ | Appointment | Radiology | Dhara, | | | 2019 | | | [address] | | | | | | 4TH [facility], | | | | | | [place] [address] | | | | | | [phone] | | | | | | | [...] [place] | | | | | | [place] [address] | | | | | | [phone] | | | | | | | [...] [place] | | | | | | [address] | | | | | | [phone] | | | | | | | [...] | | | | | [place] [address] | | | | | | [phone] | | | | | | | | | | | | Azul Yeboah, | | | | | | MD [address] | | | | | | [place] | | | | | | [place] [address] | | | | | | [phone] | | | | | | | [...] | | | | | | [place] [address] | | | | | | [phone] | | | | | | | | +--------+ + + + + documented as of this encounter Visit Diagnoses Not on filedocumented in this encounter"
--- OUTSIDE RECORDS SUMMARY | ~2020-02-18 | XMS | Encounter Summary ---
Demographics + + + | Address | [address] | | | [place] [address] | + + + | Home Phone [...] Providers + +------+ + | Care Java Software Developer Name | Role | Phone | [...] [place] | | | | | | [address] | | | | | | [phone] | | | +--------+ + + + [...] | | | | | [place] [address] | | | | | | [phone] | | | | | | | | | | | | Julia Fisher, | | | | | | PT | | +--------+ + + + + | 02/18/ | Appointment | Rehabilitation | Erika Ernst, | | | 2019 | | | DO [address] [place] | | | | | | [place] [address] | | | | | | [phone] | | | | | | | | | | | | Genesis Ayon OT | | +--------+ + + + + | 02/25/ | Office | Primary Care | Erika Ernst, | | | 2019 | Visit | | DO [address] [place] | | | | | | [place] [address] | | | | | | [phone] | | | | | | | [...] | | | | | [place] [address] | | | | | | [phone] | | | | | | | | +--------+ + + + + | 02/27/ | Appointment | Radiology | Dhara, | | | 2019 | | | [address] | | | | | | [address] [place], | | | | | | [place] [address] | | | | | | [phone] | | | | | | | [...] [place] | | | | | | [place] [address] | | | | | | [phone] | | | | | | | [...] [place] | | | | | | [address] | | | | | | [phone] | | | | | | | [...] | | | | | [place] [address] | | | | | | [phone] | | | | | | | | | | | | Azul Yeboah, | | | | | | MD [address] | | | | | | [place] | | | | | | [place] [address] | | | | | | [phone] | | | | | | | [...] | | | | | | [place] [address] | | | | | | [phone] | | | | | | | | +--------+ + + + + documented as of this encounter Visit Diagnoses Not on filedocumented in this encounter"
--- OUTSIDE RECORDS SUMMARY | ~2020-02-18 | XMS | Encounter Summary ---
Demographics + + + | Address | [address] | | | [place] [address] | + + + | Home Phone [...] Team Providers + +------+ + | Care Jacquard Loom Heddles Tier Name | Role | Phone | [...] | | | to excess | [place] [address] | | | | | | calories | Phone: | | | | | | without | [phone] | | | | | | serious | Fax: | | | | | | comorbidity | [phone] | | | | | | with [...] | | | | | [facility] | | | | | [...] | SERVICES [address] | [place] [address] | malignant; Morbid | | | | DR [place], [place] | [phone] | obesity (HCC); | | | | [address] | | Dietary counseling | | | | [phone] | Janel Webster, | and surveillance; | [...] | | | | | [place] [address] | | | | | | [phone] | | | | | | | | | | | | Julia Fisher, | | | | | | PT | | +--------+ + + + + | 02/18/ | Appointment | Rehabilitation | Erika Ernst, | | 2019 | | | DO [address] [place] | | | | | | [place] [address] | | | | | | [phone] | | | | | | | | | | | | Genesis Ayon OT | | +--------+ + + + + | 02/25/ | Office | Primary Care | Erika Ernst, | | | 2019 | Visit | | DO [address] [place] | | | | | | [place] [address] | | | | | | [phone] | | | | | | | [...] | | | | | [place] [address] | | | | | | [phone] | | | | | | | | +--------+ + + + + | 02/27/ | Appointment | Radiology | Dhara, | | | 2019 | | | [address] | | | | | | 4TH [facility], | | | | | | [place] [address] | | | | | | [phone] | | | | | | | [...] [place] | | | | | | [place] [address] | | | | | | [phone] | | | | | | | [...] [place] | | | | | | [address] | | | | | | [phone] | | | | | | | [...] | | | | | [place] [address] | | | | | | [phone] | | | | | | | | | | | | Azul Yeboah, | | | | | | MD [address] | | | | | | [place] | | | | | | [place] [address] | | | | | | [phone] | | | | | | | [...] | | | | | | [place] [address] | | | | | | [phone] | | | | | | | [...]
--- OUTSIDE RECORDS SUMMARY | ~2020-02-18 | XMS | Encounter Summary ---
Demographics + + + | Address | [address] | | | [place] [address] | + + + | Home Phone [...] Team Providers + +------+ + | Care Tapper Balance Wheel Screw Hole Name | Role | Phone | + [...] Results | | 2018 | | [facility] | CATALYST RECOVERY OPERATOR | | | | | MEDICAL [facility] [address] | | | | | | 4TH [facility] [place], | | | | | | [place] [address] | | | | | | [phone] | | | +--------+ + + + [...] | | 2020 | | | DO [address] [place] [address] | | | | | | [place] [address] | | | | | | [phone] | | | | | | | | | | | | Julia Fisher, | | | | | | PT | | +--------+ + + + + | 02/18/ | Appointment | Rehabilitation | Erika Ernst, | | | 2019 | | | DO [address] [place] | | | | | | [place] [address] | | | | | | [phone] | | | | | | | | | | | | Genesis Ayon, SUSAN | | +--------+ + + + + | 02/25/ | Office | Primary Care | Erika Ernst, | | | 2019 | Visit | | DO [address] [place] | | | | | | [place] [address] | | | | | | [phone] | | | | | | | [...] | | | | | [place] [address] | | | | | | [phone] | | | | | | | | +--------+ + + + + | 02/27/ | Appointment | Radiology | Dhara, | | | 2019 | | | [address] | | | | | | [address] [place], | | | | | | [place] [address] | | | | | | [phone] | | | | | | | [...] | | | | | [place] [address] | | | | | | [phone] | | | | | | | [...] [place] | | | | | | [address] | | | | | | [phone] | | | | | | | [...] | | | | | [place] [address] | | | | | | [phone] | | | | | | | | | | | | Azul Yeboah, | | | | | | MD [address] | | | | | | [place] | | | | | | [place] [address] | | | | | | [phone] | | | | | | | [...] | | | | | | [place] [address] | | | | | | [phone] | | | | | | | | +--------+ + + + + documented as of this encounter Visit Diagnoses Not on filedocumented in this encounter"
--- OUTSIDE RECORDS SUMMARY | ~2020-02-18 | XMS | Encounter Summary ---
Demographics + + + | Address | [address] | | | [place] [address] | + + + | Home Phone [...] Providers + +------+ + | Care Public Area Attendant Name | Role | Phone | [...] | | | of left | [place] [address] | [place] [address] | | | | | ankle, | Phone: | Phone: | | | | | initial | [phone] | [phone] | | | | | encounter | Fax: | Fax: | | | | | Procedures | [phone] | [phone] | | | | | PT TREAT [...] [address] [place] | [place] [address] | encounter (Primary | | | | [place], [place] | [phone] | Dx) | | | | [address] | | | | | | [phone] | Nick Barrios I, PT | | [...] might be different fro m the original. [facility]ER[facility] PT [address] [place] [address] Physical Therapy Daily Treatment Note Date: 10/18/2018 [...] in favor of SL heel raise with AVIONICS SAFETY INSPECTOR. ONGOING: SLS on even surface 3x3 0 [...] | | | | | [place] [address] | | | | | | [phone] | | | | | | | | | | | | Julia Fisher, | | | | | | PT | | +--------+ + + + + | 02/18/ | Appointment | Rehabilitation | Erika Ernst, | | | 2019 | | | DO [address] [place] | | | | | | [place] [address] | | | | | | [phone] | | | | | | | | | | | | Genesis Ayon OT | | +--------+ + + + + | 02/25/ | Office | Primary Care | Erika Ernst, | | | 2019 | Visit | | DO [address] [place] | | | | | | [place] [address] | | | | | | [phone] | | | | | | | [...] | | | | | [place] [address] | | | | | | [phone] | | | | | | | | +--------+ + + + + | 02/27/ | Appointment | Radiology | Dhara, | | | 2019 | | | [address] | | | | | [address] [place], | | | | | | [place] [address] | | | | | | [phone] | | | | | | | | +--------+ + + + + | 03/04/ | Appointment | Rehabilitation | Genesis Ayon OT | | | 2019 | | | | | +--------+ + + + + | 03/09/ | Office | Orthopedic Surgery | Jeffrey Gandhi, | | | 2019 | Visit | | [place] [address] [facility] | | | | | | [place] [address] | | | | | | [phone] | | | | | | | [...] [place] | | | | | | [address] | | | | | | [phone] | | | | | | | [...] | | | | | [place] [address] | | | | | | [phone] | | | | | | | | | | | | Azul Yeboah, | | | | | | MD [address] | | | | | | [place] | | | | | | [place] [address] | | | | | | [phone] | | | | | | | [...] | | | | | | [place] [address] | | | | | | [phone] | | | | | | | | +--------+ + + + + documented as of this encounter Visit Diagnoses + + | Diagnosis | + + | Sprain of left ankle, subsequent encounter - Primary | + + documented in this encounter
--- OUTSIDE RECORDS SUMMARY | ~2020-02-18 | XMS | Encounter Summary ---
Demographics + + + | Address | [address] | | | [place] [address] | + + + | Home Phone [...] Providers + +------+ + | Care Motor Equipment Sergeant Name | Role | Phone | + +------+ + | Erika Ernst DO | PCP | | + +------+ + Reason for Visit + + + | Reason | Comments | + + + | Medication Problem | | + + + Encounter Details +--------+--------+ + + + | Date | Type | Department | Care Team | Description | +--------+--------+ + + + | 12/23/ | Refill | [place] [facility] | Erika Ernst, | Medication Problem | | 2020 | | [facility] | DO [address] | | | | | MEDICAL CLIN[facility] [address] | [facility] [place] [address] | | | | | [address] [place], | [phone] | | | | | [place] [address] | | | | | | [phone] | | | +--------+--------+ + + + [...] | | | | | [place] [address] | | | | | | [phone] | | | | | | | | | | | | Julia Fisher, | | | | | | PT | | +--------+ + + + + | 02/18/ | Appointment | Rehabilitation | Erika Ernst, | | | 2019 | | | DO [address] [place] | | | | | | [place] [address] | | | | | | [phone] | | | | | | | | | | | | Genesis Ayon OT | | +--------+ + + + + | 02/25/ | Office | Primary Care | Erika Ernst, | | | 2019 | Visit | | DO [address] [place] | | | | | | [place] [address] | | | | | | [phone] | | | | | | | [...] | | | | | [place] [address] | | | | | | [phone] | | | | | | | | +--------+ + + + + | 02/27/ | Appointment | Radiology | Dhara, | | | 2019 | | | [address] | | | | | | [address] [place], | | | | | | [place] [address] | | | | | | [phone] | | | | | | | | +--------+ + + + + | 03/04/ | Appointment | Rehabilitation | Genesis Ayon OT | | | 2019 | | | | | +--------+ + + + + | 03/09/ | Office | Orthopedic Surgery | Jeffrey Gandhi, | | 2019 | Visit | | [address] [place] | | | | | | [place] [address] | | | | | | [phone] | | | | | | | [...] [place] | | | | | | [address] | | | | | | [phone] | | | | | | | [...] | | | | | [place] [address] | | | | | | [phone] | | | | | | | | | | | | Azul Yeboah, | | | | | | MD [address] | | | | | | [place] | | | | | | [place] [address] | | | | | | [phone] | | | | | | | [...] | | | | | | [place] [address] | | | | | | [phone] | | | | | | | | +--------+ + + + + documented as of this encounter Visit Diagnoses Not on filedocumented in this encounter"
--- OUTSIDE RECORDS SUMMARY | ~2020-02-18 | XMS | Encounter Summary ---
Demographics + + + | Address | [address] | | | [place] [address] | + + + | Home Phone [...] Providers + +------+ + | Care Card Brusher Name | Role | Phone | [...] | [place], [place] | [place] [address] | complicated, | | | | [address] | | unspecified whether | | | | [phone] | (Fax) | persistent (Primary | | [...] | | | | | [place] [address] | | | | | | [phone] | | | | | | | | | | | | Julia Fisher, | | | | | | PT | | +--------+ + + + + | 02/18/ | Appointment | Rehabilitation | Erika Ernst, | | | 2019 | | | DO [address] [place] | | | | | | [place] [address] | | | | | | [phone] | | | | | | | | | | | | Genesis Ayon OT | | +--------+ + + + + | 02/25/ | Office | Primary Care | Erika Ernst, | | | 2019 | Visit | | DO [address] [place] | | | | | | [place] [address] | | | | | | [phone] | | | | | | | [...] | | | | | [place] [address] | | | | | | [phone] | | | | | | | | +--------+ + + + + | 02/27/ | Appointment | Radiology | Dhara, | | | 2019 | | | [address] | | | | | | [address] [place], | | | | | | [place] [address] | | | | | | [phone] | | | | | | | [...] | | | | | [place] [address] | | | | | | [phone] | | | | | | | [...] [place] | | | | | | [address] | | | | | | [phone] | | | | | | | [...] [address] | | | | | | [phone] | | | | | | | | | | | | Azul Yeboah, | | | | | | MD [address] | | | | | | [place] | | | | | | [place] [address] | | | | | | [phone] | | | | | | | [...] | | | | | | [place] [address] | | | | | | [phone] | | | | | | | [...]
--- OUTSIDE RECORDS SUMMARY | ~2020-02-18 | XMS | Encounter Summary ---
Demographics + + + | Address | [address] | | | [place] [address] | + + + | Home Phone [...] Team Providers + +------+ + | Care Workers' Compensation Commissioner Name | Role | Phone | + +------+ + | Erika Ernst DO | PCP | | + +------+ + Encounter Details +--------+ + + + + | Date | Type | Department | Care Team | Description | +--------+ + + + + | 09/02/ | [facility] | [place] | Anthony Alvarado MD | Left thyroid nodule | | 2019 | Encounter | [facility] Ultrasound | [address] [place] | | | | | [address] [place] | [place], [place] | | | | | [place], [place] | [address] | | | | | [address] | [phone] | | | | | [phone] | | | | | | | [...] | | | | | [place] [address] | | | | | | [phone] | | | | | | | | | | | | Julia Fisher, | | | | | | PT | | +--------+ + + + + | 02/18/ | Appointment | Rehabilitation | Erika Ernst, | | | 2019 | | | DO [address] [place] | | | | | | [place] [address] | | | | | | [phone] | | | | | | | | | | | | [facility] | | +--------+ + + + + | 02/25/ | Office | Primary Care | Erika Ernst, | | | 2019 | Visit | | DO [address] [place] | | | | | | [place] [address] | | | | | | [phone] | | | | | | | [...] | | | | | [place] [address] | | | | | | [phone] | | | | | | | | +--------+ + + + + | 02/27/ | Appointment | Radiology | Dhara, | | | 2019 | | | DWAINE Ross [address] [place], | | | | | | [place] [address] | | | | | | [phone] | | | | | | | [...] | | | | [place] [address] | | | | | | [phone] | | | | | | | [...] [place] | | | | | | [address] | | | | | | [phone] | | | | | | | [...] | | | | | [place] [address] | | | | | | [phone] | | | | | | | | | | | | Azul Yeboah, | | | | | | MD [address] | | | | | | [place] | | | | | | [place] [address] | | | | | | [phone] | | | | | | | [...] | | | | | | [place] [address] | | | | | | [phone] | | | | | | | [...] PHYSICIAN: Chris Bedolla M.D. PATIENT NAME: | [facility] | | ANDREA SUH GENDER: Bre [...] | | contents and follicular cells seen (Henderson category 2) (see | | | Description) [...] interpretation was performed by | | | [facility], [address] | | | [place] [address] (Software Recruiter: Desi Perez MD; CLIA# | | | [id number]). Technical preparation was performed by [employer] | | | [facility], [address] [place] [address] | | | (Software Recruiter: Carlos Eduardo Mayorga D.O.; CLIA#: [id number]). | | | Diagnostician: Chasity HACKETT ([facility]) [employer] We[employer] Technician | | | Diagnostician: Erick Orr MD Pathologist Electronically | | | Signed 09/06/2019 | | + + + + +---------+ + + | Performing | Address | City/State/[facility] | Phone Number | | Organization [...]
--- OUTSIDE RECORDS SUMMARY | ~2020-02-18 | XMS | Encounter Summary ---
Demographics + + + | Address | [address] | | | [place] [address] | + + + | Home Phone [...] Providers + +------+ + | Care Senior Web Applications Developer Name | Role | Phone | [...] ankle | | 2020 | Visit | [facility] | DWAINE Huynh | pain (Primary Dx) | | | | [facility] 506 | [address] [place] [address] | | | | | 4TH [facility], | [facility] [place] [address] | | | | | [place] [address] | [phone] | | | | | [phone] | | | +--------+---------+ + + + [...] ordered an x-ray to be done at [facility]: you may get this done at any [...] presents to the [facility] for the following concern(s): Ankle Pain The incident occurred 1 to 3 hours ago. Incident location: Hiking at [facility]. The injury ayan tsang was a fall. [...] | | 2019 | | | DO [place] | | | | | | [place] [address] | | | | | | [phone] | | | | | | | | | | | | Julia Fisher, | | | | | | PT | | +--------+ + + + + | 02/18/ | Appointment | Rehabilitation | Erika Ernst, | | | 2019 | | | DO [address] | | | | | | [place] [address] | | | | | | [phone] | | | | | | | | | | | | Gneesis Ayon OT | | +--------+ + + + + | 02/25/ | Office | Primary Care | Erika Ernst, | | | 2019 | Visit | | DO [address] | | | | | | [place] [address] | | | | | | [phone] | | | | | | | [...] | | | | | [place] [address] | | | | | | [phone] | | | | | | | | +--------+ + + + + | 02/27/ | Appointment | Radiology | Dhara, | | | 2019 | | | DWAINE Ross [address] | | | | | | [address] [facility] [place], | | | | | | [place] [address] | | | | | | [phone] | | | | | | | [...] | | | | [place] [address] | | | | | | [phone] | | | | | | | [...] [place] | | | | | | [address] | | | | | | [phone] | | | | | | | [...] | | | | | [place] [address] | | | | | | [phone] | | | | | | | | | | | | Azul Yeboah, | | | | | | MD [address] | | | | | | [place] | | | | | | [place] [address] | | | | | | [phone] | | | | | | | [...] | | | | | | [place] [address] | | | | | | [phone] | | | | | | | [...]
--- OUTSIDE RECORDS SUMMARY | ~2020-02-18 | XMS | Encounter Summary ---
Demographics + + + | Address | [address] | | | [place] [address] | + + + | Home Phone [...] Team Providers + +------+ + | Care Race Engine Builder Name | Role | Phone | [...] Refill | | 2020 | | [facility] | DO [address] | | | | | MEDICAL CLINIC 506 | [place] [address] | | | | | [address] [place], | [phone] | | | | | [place] [address] | | | | | | [phone] | | | +--------+--------+ + + + [...] | | | | | [place] [address] | | | | | | [phone] | | | | | | | | | | | | Julia Fisher, | | | | | | PT | | +--------+ + + + + | 02/18/ | Appointment | Rehabilitation | Erika Ernst, | | | 2019 | | | DO [address] | | | | | | [place] [address] | | | | | | [phone] | | | | | | | | | | | | Genesis Ayon OT | | +--------+ + + + + | 02/25/ | Office | Primary Care | Erika Ernst, | | | 2019 | Visit | | DO [address] | | | | | | [place] [address] | | | | | | [phone] | | | | | | | [...] | | | | | [place] [address] | | | | | | [phone] | | | | | | | | +--------+ + + + + | 02/27/ | Appointment | Radiology | Dhara, | | | 2019 | | | DWAINE Ross 506 | | | | | | 4TH [facility], | | | | | | [place] [address] | | | | | | [phone] | | | | | | | [...] [place] | | | | | | [place] [address] | | | | | | [phone] | | | | | | | [...] | | | | | | [place], [place] | | | | | | [address] | | | | | | [phone] | | | | | | | [...] | | | | | [place] [address] | | | | | | [phone] | | | | | | | | | | | | Azul Yeboah, | | | | | | MD [address] | | | | | | [place] | | | | | | [place] [address] | | | | | | [phone] | | | | | | | [...] | | | | | | [place] [address] | | | | | | [phone] | | | | | | | | +--------+ + + + + documented as of this encounter Visit Diagnoses Not on filedocumented in this encounter"
--- OUTSIDE RECORDS SUMMARY | ~2020-02-18 | XMS | Encounter Summary ---
Demographics + + + | Address | [address] | | | [place] [address] | + + + | Home Phone [...] Team Providers + +------+ + | Care Organic Section Technical Lead Name | Role | Phone | [...] [address] | | | | | [place] [address] | | | | | | [phone] | | | +--------+ + + + [...] | | | | | [place] [address] | | | | | | [phone] | | | | | | | | | | | | Julia Fisher, | | | | | | PT | | +--------+ + + + + | 02/18/ | Appointment | Rehabilitation | Erika Ernst, | | | 2019 | | | DO [address] | | | | | | [place] [address] | | | | | | [phone] | | | | | | | | | | | | Genesis Ayon OT | | +--------+ + + + + | 02/25/ | Office | Primary Care | Erika Ernst, | | | 2019 | Visit | | DO [address] | | | | | | [place] [address] | | | | | | [phone] | | | | | | | [...] | | | | | [place] [address] | | | | | | [phone] | | | | | | | | +--------+ + + + + | 02/27/ | Appointment | Radiology | Dhara, | | | 2019 | | | DWAINE Ross [address] | | | | | | 4TH [facility], | | | | | | [place] [address] | | | | | | [phone] | | | | | | | | +--------+ + + + + | 03/04/ | Appointment | Rehabilitation | Genesis Ayon OT | | | 2019 | | | | | +--------+ + + + + | 03/09/ | Office | Orthopedic Surgery | Jeffrey Gandhi, | | | 2019 | Visit | | [address] | | | | | | [place] [address] | | | | | | [phone] | | | | | | | [...] [place] | | | | | | [address] | | | | | | [phone] | | | | | | | [...] | | | | | [place] [address] | | | | | | [phone] | | | | | | | | | | | | Azul Yeboah, | | | | | | MD [address] | | | | | | [place] | | | | | | [place] [address] | | | | | | [phone] | | | | | | | [...] | | | | | | [place] [address] | | | | | | [phone] | | | | | | | | +--------+ + + + + documented as of this encounter Visit Diagnoses Not on filedocumented in this encounter"
--- OUTSIDE RECORDS SUMMARY | ~2020-02-18 | XMS | Encounter Summary ---
Demographics + + + | Address | [address] | | | [place] [address] | + + + | Home Phone [...] Team Providers + +------+ + | Care Adoption Services Manager Name | Role | Phone [...] Results, Imaging | | 2019 | | [facility] | DO Radha [address] | | | | | CL[address] | [address] [place] | | | | | [address] [place], | [place], [place] | | | | | [place] [address] | [address] | | | | | [phone] | [phone] | | | | | | | [...] | | | | | [place] [address] | | | | | | [phone] | | | | | | | | | | | | Julia Fisher, | | | | | | PT | | +--------+ + + + + | 02/18/ | Appointment | Rehabilitation | Erika Ernst, | | | 2019 | | | DO [address] | | | | | | [place] [address] | | | | | | [phone] | | | | | | | | | | | | Genesis Ayon, SUSAN | | +--------+ + + + + | 02/25/ | Office | Primary Care | Erika Ernst, | | | 2019 | Visit | | DO [address] | | | | | | [place] [address] | | | | | | [phone] | | | | | | | [...] | | | | | [place] [address] | | | | | | [phone] | | | | | | | | +--------+ + + + + | 02/27/ | Appointment | Radiology | Dhara, | | | 2019 | | | DWAINE Ross [address] | | | | | | 4TH [facility], | | | | | | [place] [address] | | | | | | [phone] | | | | | | | [...] CENTER | | | | | | [place] [address] | | | | | | [phone] | | | | | | | [...] [place] | | | | | | [address] | | | | | | [phone] | | | | | | | [...] | | | | | [place] [address] | | | | | | [phone] | | | | | | | | | | | | Azul Yeboah, | | | | | | MD [address] | | | | | | [place] | | | | | | [place] [address] | | | | | | [phone] | | | | | | | [...] | | | | | | [place] [address] | | | | | | [phone] | | | | | | | | +--------+ + + + + documented as of this encounter Visit Diagnoses Not on filedocumented in this encounter"
--- OUTSIDE RECORDS SUMMARY | ~2020-02-18 | XMS | Encounter Summary ---
Demographics + + + | Address | [address] | | | [place] [address] | + + + | Home Phone [...] Team Providers + +------+ + | Care Can Vacuum Tester Name | Role | Phone | [...] deficiency | | 2018 | | [facility] | DO [address] | | | | | MEDICAL CLINIC 506 | [place] [address] | | | | | [address] [place], | [phone] | | | | | [place] [address] | | | | | | [phone] | | | +--------+ + + + [...] [place] | | | | | | [place] [address] | | | | | | [phone] | | | | | | | | | | | | Julia Fisher, | | | | | | PT | | +--------+ + + + + | 02/18/ | Appointment | Rehabilitation | Erika Ernst, | | | 2019 | | | DO [address] | | | | | | [place] [address] | | | | | | [phone] | | | | | | | | | | | | Genesis Ayon, OT | | +--------+ + + + + | 02/25/ | Office | Primary Care | Erika Ernst, | | | 2019 | Visit | | DO [address] | | | | | | [place] [address] | | | | | | [phone] | | | | | | | [...] | | | | | [place] [address] | | | | | | [phone] | | | | | | | | +--------+ + + + + | 02/27/ | Appointment | Radiology | Dhara, | | | 2019 | | | DWAINE Ross [address] | | | | | | [address] [place], | | | | | | [place] [address] | | | | | | [phone] | | | | | | | [...] [place] | | | | | | [place] [address] | | | | | | [phone] | | | | | | | [...] [place] | | | | | | [address] | | | | | | [phone] | | | | | | | [...] | | | | | [place] [address] | | | | | | [phone] | | | | | | | | | | | | Azul Yeboah, | | | | | | [address] | | | | | | [place] [place] | | | | | | [place] [address] | | | | | | [phone] | | | | | | | [...] | | | | | | [place] [address] | | | | | | [phone] | | | | | | | | +--------+ + + + + documented as of this encounter Visit Diagnoses + + | Diagnosis | + + | Vitamin D deficiency Unspecified vitamin D deficiency | + + documented in this encounter"
--- OUTSIDE RECORDS SUMMARY | ~2020-02-18 | XMS | Encounter Summary ---
Demographics + + + | Address | [address] | | | [place] [address] | + + + | Home Phone [...] Providers + +------+ + | Care Tube Dispatcher Name | Role | Phone | [...] Visit | [facility] | MORTAR MAKER-GERMINATION TESTING MANAGER [address] | asthma with (acute) | | | | W[facility]IN [facility] [address] | [address] | exacerbation | | | | [address] [facility], | [place] [address] | (Primary Dx) | | | | [place] [address] | [phone] | | | | | [phone] | | | +--------+---------+ + + + [...] more than every 4 hours, contact your [facility] provider or seek immediate medical attention. If [...] don't already have one, talk to your [facility] are provider about developing your own "Asthma [...] turning echevarria or blue Date Last Reviewed: 01/30/201719999802-1932 [employer]. [address] [place] [address], [place] [address]. All righ ts reserved. This information is [...] mouth. Once a week Cholecalciferol (VITAMIN D3) 59449 units TABS Take 1 tablet by mouth [...] pcp. Electronically signed by: Alem Guerrero [id number] [facility], Walk-in Clinic Note: Part of this report was transcribed using voice recognition software. Every effort wa s made to ensure accuracy. However, inadvertent computerized coffee urn attendant errors may be pre sent. Linh rubin [...] | | | | | [place] [address] | | | | | | [phone] | | | | | | | | | | | | Julia Fisher, | | | | | | PT | | +--------+ + + + + | 02/18/ | Appointment | Rehabilitation | Erika Ernst, | | | 2019 | | | DO [address] | | | | | | [place] [address] | | | | | | [phone] | | | | | | | | | | | | Genesis Ayon OT | | +--------+ + + + + | 02/25/ | Office | Primary Care | Erika Ernst, | | | 2019 | Visit | | DO [address] [place] [address] | | | | | | [place] [address] | | | | | | [phone] | | | | | | | [...] | | | | | [place] [address] | | | | | | [phone] | | | | | | | | +--------+ + + + + | 02/27/ | Appointment | Radiology | Dhara, | | | 2019 | | | DWAINE Ross [address] | | | | | | [address] [place], | | | | | | [place] [address] | | | | | | [phone] | | | | | | | | +--------+ + + + + | 03/04/ | Appointment | Rehabilitation | Genesis Ayon OT | | | 2019 | | | | | +--------+ + + + + | 03/09/ | Office | Orthopedic Surgery | Jeffrey Gandhi, | | | 2019 | Visit | | [place] [address] [facility] | | | | | | [place] [address] | | | | | | [phone] | | | | | | | [...] [place] | | | | | | [address] | | | | | | [phone] | | | | | | | [...] | | | | | [place] [address] | | | | | | [phone] | | | | | | | | | | | | Azul Yeboah, | | | | | | [address] | | | | | | [place] | | | | | | [place] [address] | | | | | | [phone] | | | | | | | [...] | | | | | | [place] [address] | | | | | | [phone] | | | | | | | | +--------+ + + + + documented as of this encounter Visit Diagnoses + + | Diagnosis | + + | Moderate persistent asthma with (acute) exacerbation - Primary | + + documented in this encounter
--- OUTSIDE RECORDS SUMMARY | ~2020-02-18 | XMS | Encounter Summary ---
Demographics + + + | Address | [address] | | | [place] [address] | + + + | Home Phone [...] + +------+ + | Care Health And Wellness Coach Name | Role | Phone | [...] | MEDICAL CLINIC 506 | [place] [address] | | | | | [address] [place], | [phone] | | | | | [place] [address] | | | | | | [phone] | | | +--------+ + + + [...] | | | | | [place] [address] | | | | | | [phone] | | | | | | | | | | | | Julia Fisher, | | | | | | PT | | +--------+ + + + + | 02/18/ | Appointment | Rehabilitation | Erika Ernst, | | | 2019 | | | DO [address] | | | | | | [place] [address] | | | | | | [phone] | | | | | | | | | | | | Genesis Ayon OT | | +--------+ + + + + | 02/25/ | Office | Primary Care | Erika Ernst, | | | 2019 | Visit | | DO [address] | | | | | | [place] [address] | | | | | | [phone] | | | | | | | [...] | | | | | [place] [address] | | | | | | [phone] | | | | | | | | +--------+ + + + + | 02/27/ | Appointment | Radiology | Dhara, | | | 2019 | | | DWAINE Ross [address] | | | | | | [address] [place], | | | | | | [place] [address] | | | | | | [phone] | | | | | | | [...] | | | | | [place] [address] | | | | | | [phone] | | | | | | | [...] [place] | | | | | | [address] | | | | | | [phone] | | | | | | | [...] | | | | | [place] [address] | | | | | | [phone] | | | | | | | | | | | | Azul Yeboah, | | | | | | MD [address] | | | | | | [place] | | | | | | [place] [address] | | | | | | [phone] | | | | | | | [...] | | | | | | [place] [address] | | | | | | [phone] | | | | | | | | +--------+ + + + + documented as of this encounter Visit Diagnoses Not on filedocumented in this encounter"
--- OUTSIDE RECORDS SUMMARY | ~2020-02-18 | XMS | Encounter Summary ---
Demographics + + + | Address | [address] | | | [place] [address] | + + + | Home Phone [...] Providers + +------+ + | Care Medical Doctor Name | Role | Phone | + +------+ + | Erika Ernst DO | PCP | | + +------+ + Reason for Visit + + + | Reason | Comments | + + + | Follow-up | short term memory loss | + + + Consultation (Routine) +--------+ [...] | | | | syndrome | [place] [address] | [place], [place] | | | | | | Phone: | [phone] Phone: | | | | | | [phone] | [phone] | | | | | | Fax: | Fax: | | | | | | [phone] | [phone] | +--------+ + + + + + Encounter Details +--------+---------+ + + + | Date | Type | Department | Care Team | Description | +--------+---------+ + + + | 08/12/ | Office | [place] [facility] | Luis Nichole MD | 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 Patient Instructions [facility] Dr. Luis Nichole, Neurologist Date:08/12/2019 Name:Andrea Suh :..1990 Please schedule next follow [...] le, and scrabble, other puzzle games like Joy[employer]unes, [employer]. Play computer/mobile applications such as Muxlim and [employer] Neurologically improving Continue with Ms Boston LCSW in [place] Any Questions please call BAKARI Terrell or Dr. Nichole at [facility] Coping with Concussion Concussion is [...] resting in a quiet place and imagi zarha a peaceful scene. Relax your muscles by soaking in a hot bath or taking a hot shower. Take asvq-icp-zasnmrw acetaminophen to relieve headache pain. Take them [...] treatment y ou need. Date Last Reviewed: 10/02/201719992436-6920 The Search to Phone. [address] [place] [address]. All righ ts reserved. This information is not intended as a substitute for professional medical care. Always follow your healthcare professional's instructions. Problems with Thinking Skills After Brain Injury One of the brain s main roles is to allow a person to think, remember, reason, and hospitalist medical director. After a brain injury, a person may be less able to coordinate sequential activities (apraxi a), process thought (agnosia), or use language (aphasia). At first, therapy may be provided by medical records coder, physical therapists, and occupational therapists,but it often [...] Favorite clothes Posters Music Date Last Reviewed: 09/01/201719991418-2732 [employer]. [address] [place] [address], [place] [address]. All righ ts reserved. This information is [...] anxiety symptoms. You are not alone. Your [facility] provider is aware of the risks of [...] for anxiety and TBI. Date Last Reviewed: 04/01/201619990059-5096 [employer]. [address] [place] [address]. All righ ts reserved. This information is [...] types: moderate TBI and severe TBI. Your [facility] team will decide if your TBI is [...] primo e to heal. Date Last Reviewed: 09/01/201719998550-0033 [employer]. [address] [place] [address], [place] [address]. All [facility] ts reserved. This information is not [...] have had a TBI. Date Last Reviewed: 10/02/201719998629-0341 [employer]. [address] [place] [address], [place] [address]. All righ ts reserved. This information is not intended as a substitute for professional medical care. Always follow your healthcare professional's instructions. documented in this encounter Progress Notes Luis Nichole MD - 08/12/2019 11:30 AM PST Patient: Andrea Suh Medical Record: [id number] Date of Services: 08/12/2019 Referring Doctor: Erika [...] was recently seen by a neuropsychologist by BETINA and she apparently demonstrated no geneva ar evidence of significant cognitive/memory dysfunction from her head injury. The [facility] evaluation was performed by Olga Rajput, PHD. I discussed with Miss Mason that s jessie she is clinically improving taking no medications at this time but she is to follow-up with her psychologist, Ms Mead, PAPER STRIPPER in [facility]. She has been using Bu[employer]par for underlying [...] CEREBELLAR EXAMINATION: There is no dysmetria on dzoulr-hq-tmqr test. MISCELLANEOUS EXAM: Well Kept, well nourished, [...] le, and scrabble, other puzzle games like [employer]itnessPalu, [employer]. Play computer/mobile applications such as Muxlim and [employer] GAMES Continue with Ms MeadMIGUELINA in [place] Any Questions please call BAKARI Terrell or Dr. Nichole at [facility] Luis Nichole MD08/12/201911:55 AM Electronically signed NOTE: Part of this report was transcribed using voice recognition software. Every effort was made to ensure accuracy. However, inadvertent computerize farm equipment engine mechanic errors may be present documented in this enc ounter Plan of Treatment +--------+ + + + + | Date | Type | Specialty | Care Team | Description | +--------+ + + + + | 02/18/ | Appointment | Rehabilitation | Erika Ernst, | | | 2019 | | | DO [address] | | | | | | [place] [address] | | | | | | [phone] | | | | | | | | | | | | Julia Fisher, | | | | | | PT | | +--------+ + + + + | 02/18/ | Appointment | Rehabilitation | Erika Ernst, | | | 2019 | | | DO [address] [place] | | | | | | [place] [address] | | | | | | [phone] | | | | | | | | | | | | Gneesis Ayon OT | | +--------+ + + + + | 02/25/ | Office | Primary Care | Erika Ernst, | | | 2019 | Visit | | DO [address] | | | | | | [place] [address] | | | | | | [phone] | | | | | | | [...] | | | | | [place] [address] | | | | | | [phone] | | | | | | | | +--------+ + + + + | 02/27/ | Appointment | Radiology | Dhara, | | | 2019 | | | DWAINE Ross [address] | | | | | | 4TH [facility], | | | | | | [place] [address] | | | | | | [phone] | | | | | | | | +--------+ + + + + | 03/04/ | Appointment | Rehabilitation | Genesis Ayon OT | | | 2019 | | | | | +--------+ + + + + | 03/09/ | Office | Orthopedic Surgery | Jeffrey Gandhi, | | | 2019 | Visit | | [address] | | | | | | [place] [address] | | | | | | [phone] | | | | | | | [...] [place] | | | | | | [address] | | | | | | [phone] | | | | | | | [...] | | | | | [place] [address] | | | | | | [phone] | | | | | | | | | | | | Azul Yeboah, | | | | | | MD [address] | | | | | | [place] | | | | | | [place] [address] | | | | | | [phone] | | | | | | | [...] | | | | | | [place] [address] | | | | | | [phone] | | | | | | | [...]
--- OUTSIDE RECORDS SUMMARY | ~2020-02-18 | XMS | Encounter Summary ---
Demographics + + + | Address | [address] | | | [place] [address] | + + + | Home Phone [...] Team Providers + +------+ + | Care Mirror Polisher Name | Role | Phone | [...] | MEDICAL CLINIC [address] | [place] [address] | | | | | [address] [place], | [phone] | | | | | [place] [address] | | | | | | [phone] | | | +--------+ + + + [...] | | | | | [place] [address] | | | | | | [phone] | | | | | | | | | | | | Julia Fisher, | | | | | | PT | | +--------+ + + + + | 02/18/ | Appointment | Rehabilitation | Erika Ernst, | | | 2019 | | | DO [address] [place] | | | | | | [place] [address] | | | | | | [phone] | | | | | | | | | | | | Genesis Ayon OT | | +--------+ + + + + | 02/25/ | Office | Primary Care | Erika Ernst, | | | 2019 | Visit | | DO [address] [place] | | | | | | [place] [address] | | | | | | [phone] | | | | | | | [...] | | | | | [place] [address] | | | | | | [phone] | | | | | | | | +--------+ + + + + | 02/27/ | Appointment | Radiology | Dhara, | | | 2019 | | | DWAINE Ross [address] | | | | | | [address] [place], | | | | | | [place] [address] | | | | | | [phone] | | | | | | | | +--------+ + + + + | 03/04/ | Appointment | Rehabilitation | Genesis Ayon OT | | | 2019 | | | | | +--------+ + + + + | 03/09/ | Office | Orthopedic Surgery | Jeffrey Gandhi, | | | 2019 | Visit | | [address] | | | | | | [place] [address] | | | | | | [phone] | | | | | | | [...] [place] | | | | | | [address] | | | | | | [phone] | | | | | | | [...] | | | | | [place] [address] | | | | | | [phone] | | | | | | | | | | | | Azul Yeboah, | | | | | | MD [address] | | | | | | [address] | | | | | | [place] [address] | | | | | | [phone] | | | | | | | [...] | | | | | | [place] [address] | | | | | | [phone] | | | | | | | | +--------+ + + + + documented as of this encounter Visit Diagnoses Not on filedocumented in this encounter"
--- OUTSIDE RECORDS SUMMARY | ~2020-02-18 | XMS | Encounter Summary ---
Demographics + + + | Address | [address] | | | [place] [address] | + + + | Home Phone [...] Providers + +------+ + | Care Spanish Interpreter Name | Role | Phone | [...] | [address] [place], [place] | [place] [address] | | | | | [address] | [phone] | | | | | [phone] | | | +--------+ + + + [...] | | | | | [place] [address] | | | | | | [phone] | | | | | | | | | | | | Julia Fisher, | | | | | | PT | | +--------+ + + + + | 02/18/ | Appointment | Rehabilitation | Erika Ernst, | | | 2019 | | | DO [address] | | | | | | [place] [address] | | | | | | [phone] | | | | | | | | | | | | Genesis Ayon OT | | +--------+ + + + + | 02/25/ | Office | Primary Care | Erika Ernst, | | | 2019 | Visit | | DO [address] | | | | | | [place] [address] | | | | | | [phone] | | | | | | | [...] | | | | | [place] [address] | | | | | | [phone] | | | | | | | | +--------+ + + + + | 02/27/ | Appointment | Radiology | Dhara, | | | 2019 | | | [address] | | | | | | 4TH [facility], | | | | | | [place] [address] | | | | | | [phone] | | | | | | | [...] MOORE | | | | | | [place] [address] | | | | | | [phone] | | | | | | | [...] [place] | | | | | | [address] | | | | | | [phone] | | | | | | | [...] | | | | | [place] [address] | | | | | | [phone] | | | | | | | | | | | | Azul Yeboah, | | | | | | MD [address] | | | | | | [place] | | | | | | [place] [address] | | | | | | [phone] | | | | | | | [...] | | | | | | [place] [address] | | | | | | [phone] | | | | | | | | +--------+ + + + + documented as of this encounter Visit Diagnoses Not on filedocumented in this encounter"
--- OUTSIDE RECORDS SUMMARY | ~2020-02-18 | XMS | Encounter Summary ---
Demographics + + + | Address | [address] | | | [place] [address] | + + + | Home Phone [...] Team Providers + +------+ + | Care Recreation Teacher Name | Role | Phone | + +------+ + PCP | Unavailable | + +------+ + Encounter Details +--------+ + + + + | Date | Type | Department | Care Team | Description | +--------+ + + + + | 05/28/ | [facility] | Nicanor Mckeon | | | 2017 | Encounter | [facility] | MD Caryn [address] | | | | | [facility] [address] | [place] | | | | | [address]TH [facility], | [address] | | | | | [place] [address] | [phone] | | | | | [phone] | | | +--------+ + + + [...] | | | | | [place] [address] | | | | | | [phone] | | | | | | | | | | | | Julia Fisher, | | | | | | PT | | +--------+ + + + + | 02/18/ | Appointment | Rehabilitation | Erika Ernst, | | | 2019 | | | DO [address] | | | | | | [place] [address] | | | | | | [phone] | | | | | | | | | | | | Genesis Ayon, OT | | +--------+ + + + + | 02/25/ | Office | Primary Care | Erika Ernst, | | | 2019 | Visit | | DO [address] | | | | | | [place] [address] | | | | | | [phone] | | | | | | | [...] | | | | | [place] [address] | | | | | | [phone] | | | | | | | | +--------+ + + + + | 02/27/ | Appointment | Radiology | Dhraa, | | | 2019 | | | [address] | | | | | | [address] [place], | | | | | | [place] [address] | | | | | | [phone] | | | | | | | | +--------+ + + + + | 03/04/ | Appointment | Rehabilitation | Genesis Ayon OT | | | 2019 | | | | | +--------+ + + + + | 03/09/ | Office | Orthopedic Surgery | Jeffrey Gandhi, | | | 2019 | Visit | | [address] [facility] | | | | | | [place] [address] | | | | | | [phone] | | | | | | | [...] [place] | | | | | | [address] | | | | | | [phone] | | | | | | | [...] | | | | | [place] [address] | | | | | | [phone] | | | | | | | | | | | | Azul Yeboah, | | | | | | [address] | | | | | | [place] | | | | | | [place] [address] | | | | | | [phone] | | | | | | | [...] | | | | | | [place] [address] | | | | | | [phone] | | | | | | | | +--------+ + + + + documented as of this encounter Visit Diagnoses Not on filedocumented in this encounter"
--- OUTSIDE RECORDS SUMMARY | ~2020-02-18 | XMS | Encounter Summary ---
Demographics + + + | Address | [address] | | | [place] [address] | + + + | Home Phone [...] Team Providers + +------+ + | Care Back End Developer Name | Role | Phone | + +------+ + PCP | Unavailable | + +------+ + Encounter Details +--------+ + + + + | Date | Type | Department | Care Team | Description | +--------+ + + + + | 05/20/ | [facility] | [place] | Amaya Varner NP | | | 2015 | Encounter | [facility] | [address] | | | | | [facility] [address] | [place], [place] | | | | | [address] [place], | [address] | | | | | [place] [address] | [phone] | | | | | [phone] | | | +--------+ + + + [...] | | | | | [place] [address] | | | | | | [phone] | | | | | | | | | | | | Julia Fisher, | | | | | | PT | | +--------+ + + + + | 02/18/ | Appointment | Rehabilitation | Erika Ernst, | | | 2019 | | | DO [address] | | | | | | [place] [address] | | | | | | [phone] | | | | | | | | | | | | Genesis Ayon, SUSAN | | +--------+ + + + + | 02/25/ | Office | Primary Care | Erika Ernst, | | | 2019 | Visit | | DO [address] | | | | | | [place] [address] | | | | | | [phone] | | | | | | | [...] | | | | | [place] [address] | | | | | | [phone] | | | | | | | | +--------+ + + + + | 02/27/ | Appointment | Radiology | Dhara, | | | 2019 | | | [address] | | | | | | 4TH [facility], | | | | | | [place] [address] | | | | | | [phone] | | | | | | | | +--------+ + + + + | 03/04/ | Appointment | Rehabilitation | Genesis Ayon OT | | | 2019 | | | | | +--------+ + + + + | 03/09/ | Office | Orthopedic Surgery | Jeffrey Gadnhi, | | | 2019 | Visit | | [address] [facility] | | | | | | [place] [address] | | | | | | [phone] | | | | | | | [...] [place] | | | | | | [address] | | | | | | [phone] | | | | | | | [...] | | | | | [place] [address] | | | | | | [phone] | | | | | | | | | | | | Azul Yeboah, | | | | | | MD [address] | | | | | | [place] | | | | | | [place] [address] | | | | | | [phone] | | | | | | | [...] | | | | | | [place] [address] | | | | | | [phone] | | | | | | | | +--------+ + + + + documented as of this encounter Visit Diagnoses Not on filedocumented in this encounter"
--- OUTSIDE RECORDS SUMMARY | ~2020-02-18 | XMS | Encounter Summary ---
Demographics + + + | Address | [address] | | | [place] [address] | + + + | Home Phone [...] Team Providers + +------+ + | Care Baggage Agent Name | Role | Phone | [...] | [facility] [address] | [place] [address] | | | | | [address] [place], | [phone] | | | | | [place] [address] | | | | | | [phone] | | | +--------+ + + + [...] | | | | | [place] [address] | | | | | | [phone] | | | | | | | | | | | | Julia Fisher, | | | | | | PT | | +--------+ + + + + | 02/18/ | Appointment | Rehabilitation | Erika Ernst, | | | 2019 | | | DO [address] | | | | | | [place] [address] | | | | | | [phone] | | | | | | | | | | | | Genesis Ayon OT | | +--------+ + + + + | 02/25/ | Office | Primary Care | Erika Ernst, | | | 2019 | Visit | | DO [address] | | | | | | [place] [address] | | | | | | [phone] | | | | | | | [...] | | | | | [place] [address] | | | | | | [phone] | | | | | | | | +--------+ + + + + | 02/27/ | Appointment | Radiology | Dhara, | | | 2019 | | | [address] | | | | | | 4TH [facility], | | | | | | [place] [address] | | | | | | [phone] | | | | | | | [...] | | | | | [place] [address] | | | | | | [phone] | | | | | | | [...] [place] | | | | | | [address] | | | | | | [phone] | | | | | | | [...] | | | | | [place] [address] | | | | | | [phone] | | | | | | | | | | | | Azul Yeboah, | | | | | | MD [address] | | | | | | [place] | | | | | | [place] [address] | | | | | | [phone] | | | | | | | [...] | | | | | | [place] [address] | | | | | | [phone] | | | | | | | | +--------+ + + + + documented as of this encounter Visit Diagnoses + + | Diagnosis | + + | Vitamin D deficiency - Primary Unspecified vitamin D deficiency | + + documented in this encounter"
--- OUTSIDE RECORDS SUMMARY | ~2020-02-18 | XMS | Encounter Summary ---
Demographics + + + | Address | [address] | | | [place] [address] | + + + | Home Phone [...] Team Providers + +------+ + | Care Veterinary Medicine Doctor Name | Role | Phone [...] | | | | | | ME REPR | | | | | | | FOREARM | | | | | | | TEND/MUSC,EX | | | | | | | TEN,PRIM,EA | | | | | | | ME REPR | | | | | | | FOREARM | | | | | | | TEND/MUSC,EX | | | | | | | TEN,SECOND | | | | | | | ME REPR | | | | | | [...] | | [place], [place] | [place] [address] | | | | | [address] | [phone] | | | | | [phone] | | | +--------+ + + + [...] number, which [facility] and ask for the medical social consultant orthopedic provider. Be sure to mention t hat you've had surgery recently. AttachmentsThe following attachments cannot be sent through Care Everywhere.After Your Surg matt: Discharge Instructions (Vietnamese)documented in this encounter Medications at Time of [...] | 02/29/20 | | | (VITAMIN D3) 14362 | mouth Once a week | tablet [...] | | 2019 | | | DO [facility] | | | | | | [place] [address] | | | | | | [phone] | | | | | | | | | | | | Julia Fisher, | | | | | | PT | | +--------+ + + + + | 02/18/ | Appointment | Rehabilitation | Erika Ernst, | | | 2019 | | | DO [address] | | | | | | [place] [address] | | | | | | [phone] | | | | | | | | | | | | Genesis Ayon, SUSAN | | +--------+ + + + + | 02/25/ | Office | Primary Care | Erika Ernst, | | | 2019 | Visit | | DO [address] | | | | | | [place] [address] | | | | | | [phone] | | | | | | | [...] | | | | | [place] [address] | | | | | | [phone] | | | | | | | | +--------+ + + + + | 02/27/ | Appointment | Radiology | Dhara, | | | 2019 | | | [address] | | | | | | [address] [place], | | | | | | [place] [address] | | | | | | [phone] | | | | | | | [...] | | | | | [place] [address] | | | | | | [phone] | | | | | | | [...] [place] | | | | | | [address] | | | | | | [phone] | | | | | | | [...] | | | | | [place] [address] | | | | | | [phone] | | | | | | | | | | | | Azul Yeboah, | | | | | | MD [address] | | | | | | [place] | | | | | | [place] [address] | | | | | | [phone] | | | | | | | [...] | | | | | | [place] [address] | | | | | | [phone] | | | | | | | [...] + + | [place] [facility] | [address] | [place] | [phone] | | [facility] | | [address] | | + + + + + [...]
--- OUTSIDE RECORDS SUMMARY | ~2020-02-18 | XMS | Encounter Summary ---
Demographics + + + | Address | [address] | | | [place] [address] | + + + | Home Phone [...] Providers + +------+ + | Care Digital Design Engineer Name | Role | Phone | + +------+ + PCP | Unavailable | + +------+ + Encounter Details +--------+ + + + + | Date | Type | Department | Care Team | Description | +--------+ + + + + | 11/27/ | [facility] | Bo Bhat | | | 2017 | Encounter | [facility] | [address] | | | | | W[facility]IN [facility] [address] | [address] [place], [place] | | | | | [address]TH [facility], | [address] | | | | | [place] [address] | | | | | | [phone] | | | +--------+ + + + [...] | | | | | [place] [address] | | | | | | [phone] | | | | | | | | | | | | Julia Fisher, | | | | | | PT | | +--------+ + + + + | 02/18/ | Appointment | Rehabilitation | Erika Ernst, | | | 2019 | | | DO [address] | | | | | | [place] [address] | | | | | | [phone] | | | | | | | | | | | | Genesis Ayon, OT | | +--------+ + + + + | 02/25/ | Office | Primary Care | Erika Ernst, | | | 2019 | Visit | | DO [address] | | | | | | [place] [address] | | | | | | [phone] | | | | | | | [...] | | | | | [place] [address] | | | | | | [phone] | | | | | | | | +--------+ + + + + | 02/27/ | Appointment | Radiology | Dhara, | | | 2019 | | | [address] | | | | | | [address] [place], | | | | | | [place] [address] | | | | | | [phone] | | | | | | | | +--------+ + + + + | 03/04/ | Appointment | Rehabilitation | Genesis Ayon OT | | | 2019 | | | | | +--------+ + + + + | 03/09/ | Office | Orthopedic Surgery | Jeffrey Gandhi, | | | 2019 | Visit | | [place] [address] [facility] | | | | | | [place] [address] | | | | | | [phone] | | | | | | | [...] [place] | | | | | | [address] | | | | | | [phone] | | | | | | | [...] | | | | | [place] [address] | | | | | | [phone] | | | | | | | | | | | | Azul Yeboah, | | | | | | MD [address] | | | | | | [place] | | | | | | [place] [address] | | | | | | [phone] | | | | | | | [...] | | | | | | [place] [address] | | | | | | [phone] | | | | | | | | +--------+ + + + + documented as of this encounter Visit Diagnoses Not on filedocumented in this encounter"
--- OUTSIDE RECORDS SUMMARY | ~2020-02-18 | XMS | Encounter Summary ---
Demographics + + + | Address | [address] | | | [place] [address] | + + + | Home Phone [...] Team Providers + +------+ + | Care Continuous Mining Operator Name | Role | Phone | + +------+ + PCP | Unavailable | + +------+ + Encounter Details +--------+ + + + + | Date | Type | Department | Care Team | Description | +--------+ + + + + | 11/30/ | [facility] | Heike Rodriguez, | | | 2015 | Encounter | [facility] | PICTURE COPYIST [address] | | | | | CENTER [address] | [place] | | | | | [place] | [address] | | | | | [address] | | | | | | [phone] | | | +--------+ + + + [...] | | | | | [place] [address] | | | | | | [phone] | | | | | | | | | | | | Julia Fisher, | | | | | | PT | | +--------+ + + + + | 02/18/ | Appointment | Rehabilitation | Erika Ernst, | | | 2019 | | | DO [address] | | | | | | [place] [address] | | | | | | [phone] | | | | | | | | | | | | Genesis Ayon, OT | | +--------+ + + + + | 02/25/ | Office | Primary Care | Erika Ernst, | | | 2019 | Visit | | DO [address] | | | | | | [place] [address] | | | | | | [phone] | | | | | | | [...] | | | | | [place] [address] | | | | | | [phone] | | | | | | | | +--------+ + + + + | 02/27/ | Appointment | Radiology | Dhara, | | | 2019 | | | [address] | | | | | | 4TH [facility], | | | | | | [place] [address] | | | | | | [phone] | | | | | | | | +--------+ + + + + | 03/04/ | Appointment | Rehabilitation | Genesis Ayon OT | | | 2019 | | | | | +--------+ + + + + | 03/09/ | Office | Orthopedic Surgery | Jeffrey Gandhi, | | 2019 | Visit | | [address] | | | | | | [place] [address] | | | | | | [phone] | | | | | | | [...] [place] | | | | | | [address] | | | | | | [phone] | | | | | | | [...] | | | | | [place] [address] | | | | | | [phone] | | | | | | | | | | | | Azul Yeboah, | | | | | | MD [address] | | | | | | [place] | | | | | | [place] [address] | | | | | | [phone] | | | | | | | [...] | | | | | | [place] [address] | | | | | | [phone] | | | | | | | | +--------+ + + + + documented as of this encounter Visit Diagnoses Not on filedocumented in this encounter"
--- OUTSIDE RECORDS SUMMARY | ~2020-02-18 | XMS | Encounter Summary ---
Demographics + + + | Address | [address] | | | [place] [address] | + + + | Home Phone [...] Team Providers + +------+ + | Care Drone Pilot Name | Role | Phone | [...] | | | | | | [place] [address] | | | | | | [phone] | | | +--------+ + + + [...] | | | | | [place] [address] | | | | | | [phone] | | | | | | | | | | | | Julia Fisher, | | | | | | PT | | +--------+ + + + + | 02/18/ | Appointment | Rehabilitation | Erika Ernst, | | | 2019 | | | DO [address] | | | | | | [place] [address] | | | | | | [phone] | | | | | | | | | | | | Genesis Ayon OT | | +--------+ + + + + | 02/25/ | Office | Primary Care | Erika Ernst, | | | 2019 | Visit | | DO [address] | | | | | | [place] [address] | | | | | | [phone] | | | | | | | [...] | | | | | [place] [address] | | | | | | [phone] | | | | | | | | +--------+ + + + + | 02/27/ | Appointment | Radiology | Dhara, | | | 2019 | | | [address] | | | | | | 4TH [facility], | | | | | | [place] [address] | | | | | | [phone] | | | | | | | | +--------+ + + + + | 03/04/ | Appointment | Rehabilitation | Genesis Ayon OT | | | 2019 | | | | | +--------+ + + + + | 03/09/ | Office | Orthopedic Surgery | Jeffrey Gandhi, | | | 2019 | Visit | | [place] [address] [facility] | | | | | | [place] [address] | | | | | | [phone] | | | | | | | [...] [place] | | | | | | [address] | | | | | | [phone] | | | | | | | [...] | | | | | [place] [address] | | | | | | [phone] | | | | | | | | | | | | Azul Yeboah, | | | | | | MD [address] | | | | | | [place] | | | | | | [place] [address] | | | | | | [phone] | | | | | | | [...] | | | | | | [place] [address] | | | | | | [phone] | | | | | | | | +--------+ + + + + documented as of this encounter Visit Diagnoses Not on filedocumented in this encounter"
--- OUTSIDE RECORDS SUMMARY | ~2020-02-18 | XMS | Encounter Summary ---
Demographics + + + | Address | [address] | | | [place] [address] | + + + | Home Phone [...] Providers + +------+ + | Care Clinical Tech Name | Role | Phone | [...] | | | 2020 | Support | [facility] | [place], SOCIAL MEDIA SPECIALIST [address] | | | | | MED[facility] [address] | [address] [place] | | | | | [address] [place], | [place] [address] | | | | | [place] [address] | [phone] | | | | | [phone] | | | | | | | Erika Ernst, | | | | | | [address] | | | | | | [place] [address] | | | | | | [phone] | | | | | | | [...] | | | | | [place] [address] | | | | | | [phone] | | | | | | | | | | | | Julia Fisher, | | | | | | PT | | +--------+ + + + + | 02/18/ | Appointment | Rehabilitation | Erika Ernst, | | | 2019 | | | DO [address] [place] | | | | | | [place] [address] | | | | | | [phone] | | | | | | | | | | | | Genesis Ayon OT | | +--------+ + + + + | 02/25/ | Office | Primary Care | Erika Ernst, | | | 2019 | Visit | | DO [address] [place] | | | | | | [place] [address] | | | | | | [phone] | | | | | | | [...] | | | | | [place] [address] | | | | | | [phone] | | | | | | | | +--------+ + + + + | 02/27/ | Appointment | Radiology | Dhara, | | | 2019 | | | [address] | | | | | | [address] [place], | | | | | | [place] [address] | | | | | | [phone] | | | | | | | | +--------+ + + + + | 03/04/ | Appointment | Rehabilitation | Genesis Ayon OT | | | 2019 | | | | | +--------+ + + + + | 03/09/ | Office | Orthopedic Surgery | Jeffrey Gandhi, | | | 2019 | Visit | | [place] [address] [facility] | | | | | | [place] [address] | | | | | | [phone] | | | | | | | [...] [place] | | | | | | [address] | | | | | | [phone] | | | | | | | [...] [address] | | | | | | [phone] | | | | | | | | | | | | Azul Yeboah, | | | | | | MD [address] | | | | | | [place] | | | | | | [place] [address] | | | | | | [phone] | | | | | | | [...] | | | | | | [place] [address] | | | | | | [phone] | | | | | | | | +--------+ + + + + documented as of this encounter Visit Diagnoses Not on filedocumented in this encounter"
--- OUTSIDE RECORDS SUMMARY | ~2020-02-18 | XMS | Encounter Summary ---
Demographics + + + | Address | [address] | | | [place] [address] | + + + | Home Phone [...] + + + + | 11/10/ | [facility] | Caro Zendejas | | | 2015 | Encounter | [facility] | [place], BUSINESS ANALYST SALES OPERATIONS [address] | | | | | MEDICAL CL[facility] [address] | [facility], [place] | | | | | [address]TH [facility] [place], | [address] | | | | | [place] [address] | [phone] | | | | | [phone] | | | +--------+ + + + [...] | | | | | [place] [address] | | | | | | [phone] | | | | | | | | | | | | Julia Fisher, | | | | | | PT | | +--------+ + + + + | 02/18/ | Appointment | Rehabilitation | Erika Ernst, | | | 2019 | | | DO [address] [place] | | | | | | [place] [address] | | | | | | [phone] | | | | | | | | | | | | Genesis Ayon, OT | | +--------+ + + + + | 02/25/ | Office | Primary Care | Erika Ernst, | | | 2019 | Visit | | DO [address] [place] | | | | | | [place] [address] | | | | | | [phone] | | | | | | | [...] | | | | | [place] [address] | | | | | | [phone] | | | | | | | | +--------+ + + + + | 02/27/ | Appointment | Radiology | Dhara, | | | 2019 | | | [address] | | | | | | [address] [facility] [place], | | | | | | [place] [address] | | | | | | [phone] | | | | | | | | +--------+ + + + + | 03/04/ | Appointment | Rehabilitation | Genesis Ayon OT | | | 2019 | | | | | +--------+ + + + + | 03/09/ | Office | Orthopedic Surgery | Jeffrey Gandhi, | | | 2019 | Visit | | [address] | | | | | | [place] [address] | | | | | | [phone] | | | | | | | [...] [place] | | | | | | [address] | | | | | | [phone] | | | | | | | [...] | | | | | [place] [address] | | | | | | [phone] | | | | | | | | | | | | Azul Yeboah, | | | | | | MD [address] | | | | | | [place] | | | | | | [place] [address] | | | | | | [phone] | | | | | | | [...] | | | | | | [place] [address] | | | | | | [phone] | | | | | | | | +--------+ + + + + documented as of this encounter Visit Diagnoses Not on filedocumented in this encounter"
--- OUTSIDE RECORDS SUMMARY | ~2020-02-18 | XMS | Encounter Summary ---
Demographics + + + | Address | [address] | | | [place] [address] | + + + | Home Phone [...] Team Providers + +------+ + | Care Janitor Head Name | Role | Phone | + [...] [address] [place] | [place] [address] | | | | | [place], [place] | [phone] | | | | | [address] | | | | | | [phone] | | | +--------+ + + + [...] | | | | | [place] [address] | | | | | | [phone] | | | | | | | | | | | | Julia Fisher, | | | | | | PT | | +--------+ + + + + | 02/18/ | Appointment | Rehabilitation | Erika Ernst, | | | 2019 | | | DO [address] [place] | | | | | | [place] [address] | | | | | | [phone] | | | | | | | | | | | | [facility] | | +--------+ + + + + | 02/25/ | Office | Primary Care | Erika Ernst, | | | 2019 | Visit | | DO [address] [place] | | | | | | [place] [address] | | | | | | [phone] | | | | | | | [...] | | | | | [place] [address] | | | | | | [phone] | | | | | | | | +--------+ + + + + | 02/27/ | Appointment | Radiology | Dhara, | | 2019 | | | DWAINE Ross [address] [place], | | | | | | [place] [address] | | | | | | [phone] | | | | | | | | +--------+ + + + + | 03/04/ | Appointment | Rehabilitation | [facility] | | | 2019 | | | | | +--------+ + + + + | 03/09/ | Office | Orthopedic Surgery | Jeffrey Gandhi, | | | 2019 | Visit | | [address] [facility] | | | | | | [place] [address] | | | | | | [phone] | | | | | | | [...] [place] | | | | | | [address] | | | | | | [phone] | | | | | | | [...] | | | | | [place] [address] | | | | | | [phone] | | | | | | | | | | | | Azul Yeboah, | | | | | | MD [address] | | | | | | [place] | | | | | | [place] [address] | | | | | | [phone] | | | | | | | [...] | | | | | | [place] [address] | | | | | | [phone] | | | | | | | [...]
--- OUTSIDE RECORDS SUMMARY | ~2020-02-18 | XMS | Encounter Summary ---
Demographics + + + | Address | [address] | | | [place] [address] | + + + | Home Phone [...] Team Providers + +------+ + | Care Specialty Manufacturing Supervisor Name | Role | Phone | [...] | | | | Procedures | [place] [address] | [place] [address] | | | | | PT EVAL | Phone: | Phone: | | | | | | [phone] | [phone] | | | | | | Fax: | Fax: | | | | | | [phone] | [phone] | +--------+ + + + + + [...] [address] | [place] [address] | | | | | [place], [place] | [phone] | | | | | [address] | | | | | | [phone] | Julia Fisher, | | | | [...] | 11/26/19 | | | (VITAMIN D3) 39270 | mouth Once a week | tablet | | 19 | 9 | | units TABS | for 16 doses. | | | | | + + + +---------+ + + | D3-50 93142 units | | | 0 | 12/13/19 [...] this encounter Progress Julia Dahl, PT - 12/13/2018 5:27 PM PDT Reference/Auth Number: (if continued care) [x] PT [] OT Date of Submission: 12/13/2018 ONLY USE FOR MUSCULOSKELETAL CONDITIONS RENDERING PROVIDER INFORMATION All sections must be completed Therapist First Name, Last Name Julia Fisher, PT Facility Name [facility] Billing Provider HENNY [id number] Provider Address, [facility] Code [facility] [place] [address] Billing Provider SHIRA [id number] PATIENT INFORMATION All sections must be completed Patient Last Name, First Name NOBLIT,ANDREA ABBEY Date of 1990 Mailing Address [address] [place] [address] Coverage Information Payor/Plan Subscriber Name Rel Member # Group # [employer]* ANDREA SUH CLA* [id number] [address] [id number] CLINICAL INFORMATION Primary ICD/Diagnosis Code: Encounter Diagnoses [...] Hospital TENDON RELEASE TONSILLECTOMY WISDOM TOOTH EXTRACTION For [...] on even and uneven surfaces Level: PT: 10 Activity 2: PT: Level: PT: /10 Activity 3: PT: Level: PT: /10 Percent of improvement since start of care: eval today Was treatment provided for a second body part? no Submit a second Treatment Request for the additional area of treatment. Fax both forms t [email or web address] nelson PT - 12/13/2018 4:32 PM PDT [facility] PT [address] [place] [address] Physical Therapy Initial Assessment Date: 12/13/2018 Patient [...] Date of Onset: 10/15/2018 Referring Provider: Erika Ernst, No history on file. Past Medical History: [...] cancer Maternal Grandmother Heart attack Maternal Aunt [place] Developmental History Allergies Allergen Reactions Escitalopram Palpitations [...] Mobility: LLE Joint Mobility L Patella Medial Grand Saline: normal L Patella Lateral Grand Saline: normal L Patella Inferior Grand Saline: normal L Patella Superior Grand Saline: normal RLE Joint Mobility R Patella Medial Grand Saline: normal R Patella Lateral Grand Saline: normal R Patella Inferior Grand Saline: normal R Patella Superior Grand Saline: normal Special Tests: Lower Extremity Tests Lower [...] ncrease depth. Today's Treatment Patient Name: Andrea Steeleit/: 1990/ Start Time: 1630 Stop time: 1710 [...] Understanding Therapy Interventions HEP: HEP: Wall sits [id number] holds, Bridging 3 x 10 reps, Side steps GTB at ankles 3 x 30 . PT Interventions: Intervention #1 PT INTERVENTION 1: TE (15min) Wall sits [id number] holds, Bridging x 10 reps, Side steps [...] Certification To: 02/07/2019 Treatment Plan/Interventions PT EvaluationPT Re-[id number] - Therapeutic Lvgrnjie38147 - Neuromuscular Reeducation9 7116 - Gait Qcwufqsn84827 - Therapeutic Zecvbdlyvc20847 - Aquatic Therapy/Mpkzpcjwd41416 - U rtsrmqdgu01249 - Electrical Stimulation, Bxcudmhgur37678 - Electrical Stimulation, Attended6 4550 - TENS Application/Jkjzslskbwm83996 - Manual Therapy Patient and/or family has indicated understanding of treatment needs and actively participa everardo in the creation of this plan for care. Electronically signed by: Julia Fisher, PT, 12/13/2018 17:31 Patient Name: Andrea Suh/: 1990/ documented in [...] | | | | | [place] [address] | | | | | | [phone] | | | | | | | | | | | | Julia Fisher, | | | | | | PT | | +--------+ + + + + | 02/18/ | Appointment | Rehabilitation | Erika Ernst, | | | 2019 | | | DO [address] | | | | | | [place] [address] | | | | | | [phone] | | | | | | | | | | | | Genesis Ayon OT | | +--------+ + + + + | 02/25/ | Office | Primary Care | Erika Ernst, | | | 2019 | Visit | | [address] [place] [address] | | | | | | [place] [address] | | | | | | [phone] | | | | | | | [...] | | | | | [place] [address] | | | | | | [phone] | | | | | | | | +--------+ + + + + | 02/27/ | Appointment | Radiology | Dhara, | | | 2019 | | | [address] Ross [address] | | | | | | [address] [place], | | | | | | [place] [address] | | | | | | [phone] | | | | | | | | +--------+ + + + + | 03/04/ | Appointment | Rehabilitation | Genesis Ayon OT | | | 2019 | | | | | +--------+ + + + + | 03/09/ | Office | Orthopedic Surgery | Jeffrey Gandhi, | | | 2019 | Visit | | [address] [facility] | | | | | | [place] [address] | | | | | | [phone] | | | | | | | [...] [place] | | | | | | [address] | | | | | | [phone] | | | | | | | [...] [address] | | | | | | [phone] | | | | | | | | | | | | Azul Yeboah, | | | | | | [address] | | | | | | [place] | | | | | | [place] [address] | | | | | | [phone] | | | | | | | [...] | | | | | | [place] [address] | | | | | | [phone] | | | | | | | [...]
--- OUTSIDE RECORDS SUMMARY | ~2020-02-18 | XMS | Encounter Summary ---
Demographics + + + | Address | [address] | | | [place] [address] | + + + | Home Phone [...] Providers + +------+ + | Care Measurement Analyst Name | Role | Phone | [...] | [place] | [place] [address] | | | | | [address] | [phone] | | | | | [phone] | | | +--------+ + + + [...] | | | | | [place] [address] | | | | | | [phone] | | | | | | | | | | | | Julia Fisher, | | | | | | PT | | +--------+ + + + + | 02/18/ | Appointment | Rehabilitation | Erika Ernst, | | | 2019 | | | DO [address] | | | | | | [place] [address] | | | | | | [phone] | | | | | | | | | | | | Genesis Ayon OT | | +--------+ + + + + | 02/25/ | Office | Primary Care | Erika Ernst, | | | 2019 | Visit | | DO [address] | | | | | | [place] [address] | | | | | | [phone] | | | | | | | [...] | | | | | [place] [address] | | | | | | [phone] | | | | | | | | +--------+ + + + + | 02/27/ | Appointment | Radiology | Dhara, | | | 2019 | | | [address] | | | | | | 4TH [facility], | | | | | | [place] [address] | | | | | | [phone] | | | | | | | | +--------+ + + + + | 03/04/ | Appointment | Rehabilitation | Genesis Ayon OT | | | 2019 | | | | | +--------+ + + + + | 03/09/ | Office | Orthopedic Surgery | Jeffrey Gandhi, | | | 2019 | Visit | | [address] | | | | | | [place] [address] | | | | | | [phone] | | | | | | | [...] [place] | | | | | | [address] | | | | | | [phone] | | | | | | | [...] | | | | | [place] [address] | | | | | | [phone] | | | | | | | | | | | | Azul Yeboah, | | | | | | MD [address] | | | | | | [place] | | | | | | [place] [address] | | | | | | [phone] | | | | | | | [...] | | | | | | [place] [address] | | | | | | [phone] | | | | | | | | +--------+ + + + + documented as of this encounter Visit Diagnoses Not on filedocumented in this encounter"
--- OUTSIDE RECORDS SUMMARY | ~2020-02-18 | XMS | Encounter Summary ---
Demographics + + + | Address | [address] | | | [place] [address] | + + + | Home Phone [...] Team Providers + +------+ + | Care Quantitative Associate Name | Role | Phone | [...] | [facility] | [place] [address] | (Primary Dx); | | | [address] [place], | [phone] | Environmental | | | | [place] [address] | | allergies; Vitamin D | | | | [phone] | | deficiency | +--------+---------+ + + [...] day 6 tablet 0 Cholecalciferol (VITAMIN D3) 33533 units TABS Take 1 tablet by mouth [...] | | | DO [address] | | | | | | [place] [address] | | | | | | [phone] | | | | | | | | | | | | Julia Fisher, | | | | | | PT | | +--------+ + + + + | 02/18/ | Appointment | Rehabilitation | Erika Ernst, | | | 2019 | | | DO [address] | | | | | | [place] [address] | | | | | | [phone] | | | | | | | | | | | | Genesis Ayon OT | | +--------+ + + + + | 02/25/ | Office | Primary Care | Erika Ernst, | | | 2019 | Visit | | DO [address] | | | | | | [place] [address] | | | | | | [phone] | | | | | | | [...] | | | | | [place] [address] | | | | | | [phone] | | | | | | | | +--------+ + + + + | 02/27/ | Appointment | Radiology | Dhara, | | 2019 | | | [address] | | | | | | 4TH [facility], | | | | | | [place] [address] | | | | | | [phone] | | | | | | | | +--------+ + + + + | 03/04/ | Appointment | Rehabilitation | Genesis Ayon OT | | | 2019 | | | | | +--------+ + + + + | 03/09/ | Office | Orthopedic Surgery | Jeffrey Gandhi, | | | 2019 | Visit | | MD [address] [facility] | | | | | | [place] [address] | | | | | | [phone] | | | | | | | [...] [place] | | | | | | [address] | | | | | | [phone] | | | | | | | [...] | | | | | [place] [address] | | | | | | [phone] | | | | | | | | | | | | Azul Yeboah, | | | | | | MD [address] | | | | | | [place] | | | | | | [place] [address] | | | | | | [phone] | | | | | | | | +--------+ + + + + | 04/08/ | Appointment | Nutrition | Janel Webster | | | 2019 | | | [place], [place] | | +--------+ + + + + | 05/21/ | Office | Neurology | Dhara, | | | 2019 | Visit | | Cody, VICE PRESIDENT MARKETING & DEVELOPMENT [address] | | | | | | [address] [facility] [place], | | | | | | [place] [address] | | | | | | [phone] | | | | | | | [...]
--- OUTSIDE RECORDS SUMMARY | ~2020-02-18 | XMS | Encounter Summary ---
Demographics + + + | Address | [address] | | | [place] [address] | + + + | Home Phone [...] Providers + +------+ + | Care Journeyman Electrician Pv Installer Name | Role | Phone | + +------+ + | Erika Ernst DO | PCP | | + +------+ + Encounter Details +--------+ + + + + | Date | Type | Department | Care Team | Description | +--------+ + + + + | 10/23/ | [facility] | Erika Ernst, | Breast cancer | | 2020 | Encounter | Hospital [facility] | DO [address] | screening, high risk | | | | Mammography [address] | [place] [address] | patient; Breast | | | | [address] [place] | [phone] | cancer screening by | | | | [place], [place] | | mammogram | | | | [address] | | | | | | [phone] | | | +--------+ + + + [...] | | 2019 | | | DO [place] | | | | | | [place] [address] | | | | | | [phone] | | | | | | | | | | | | Julia Fisher, | | | | | | PT | | +--------+ + + + + | 02/18/ | Appointment | Rehabilitation | Erika Ernst, | | | 2019 | | | DO [address] | | | | | | [place] [address] | | | | | | [phone] | | | | | | | | | | | | Genesis Ayon, SUSAN | | +--------+ + + + + | 02/25/ | Office | Primary Care | Erika Ernst, | | | 2019 | Visit | | DO [address] | | | | | | [place] [address] | | | | | | [phone] | | | | | | | [...] | | | | | [place] [address] | | | | | | [phone] | | | | | | | | +--------+ + + + + | 02/27/ | Appointment | Radiology | Dhara, | | | 2019 | | | [address] | | | | | | [address] [place], | | | | | | [place] [address] | | | | | | [phone] | | | | | | | [...] | | | | | [place] [address] | | | | | | [phone] | | | | | | | [...] [place] | | | | | | [address] | | | | | | [phone] | | | | | | | [...] | | | | | [place] [address] | | | | | | [phone] | | | | | | | | | | | | Azul Yeboah, | | | | | | MD [address] | | | | | | [place] | | | | | | [place] [address] | | | | | | [phone] | | | | | | | [...] | | | | | | [place] [address] | | | | | | [phone] | | | | | | | [...]
--- OUTSIDE RECORDS SUMMARY | ~2020-02-18 | XMS | Encounter Summary ---
Demographics + + + | Address | [address] | | | [place] [address] | + + + | Home Phone [...] + +------+ + | Care Energy Conservation Technician Name | Role | Phone | [...] | 2019 | | [facility] | Forestry Professor | | | | | [address] [place] | | | | | | [place] | | | | | | [address] | | | | | | [phone] | | | +--------+ + + + [...] | | 2019 | | | DO [address] [place] [address] | | | | | | [place] [address] | | | | | | [phone] | | | | | | | | | | | | Julia Fisher, | | | | | | PT | | +--------+ + + + + | 02/18/ | Appointment | Rehabilitation | Erika Ernst, | | | 2019 | | | DO [address] | | | | | | [place] [address] | | | | | | [phone] | | | | | | | | | | | | Genesis Ayon, SUSAN | | +--------+ + + + + | 02/25/ | Office | Primary Care | Erika Ernst, | | | 2019 | Visit | | DO [address] | | | | | | [place] [address] | | | | | | [phone] | | | | | | | [...] | | | | | [place] [address] | | | | | | [phone] | | | | | | | | +--------+ + + + + | 02/27/ | Appointment | Radiology | Dhara, | | | 2019 | | | [address] | | | | | | [address] [facility] [place], | | | | | | [place] [address] | | | | | | [phone] | | | | | | | [...] | | | | | [place] [address] | | | | | | [phone] | | | | | | | [...] [place] | | | | | | [address] | | | | | | [phone] | | | | | | | [...] | | | | | [place] [address] | | | | | | [phone] | | | | | | | | | | | | Azul Yeboah, | | | | | | MD [address] | | | | | | [place] | | | | | | [place] [address] | | | | | | [phone] | | | | | | | [...] | | | | | | [place] [address] | | | | | | [phone] | | | | | | | [...] + + | [place] [facility] | [address] | [place] | [phone] | | [facility] | | [address] | | + + + + + documented in this encounter Visit Diagnoses + + | Diagnosis | + + | Lymphocytosis Lymphocytosis (symptomatic) | + + documented in this encounter"
--- OUTSIDE RECORDS SUMMARY | ~2020-02-18 | XMS | Encounter Summary ---
Demographics + + + | Address | [address] | | | [place] [address] | + + + | Home Phone [...] Team Providers + +------+ + | Care Mucking Machine Operator Name | Role | Phone [...] Imaging | | 2019 | | [facility] | DO [address] | | | | | MEDICAL CLIN[facility] [address] | [place] [address] | | | | | [address] [place], | [phone] | | | | | [place] [address] | | | | | | [phone] | | | +--------+ + + + [...] | | | | | [place] [address] | | | | | | [phone] | | | | | | | | | | | | Julia Fisher, | | | | | | PT | | +--------+ + + + + | 02/18/ | Appointment | Rehabilitation | Erika Ernst, | | | 2019 | | | DO [address] | | | | | | [place] [address] | | | | | | [phone] | | | | | | | | | | | | Genesis Ayon OT | | +--------+ + + + + | 02/25/ | Office | Primary Care | Erika Ernst, | | | 2019 | Visit | | DO [address] | | | | | | [place] [address] | | | | | | [phone] | | | | | | | [...] | | | | | [place] [address] | | | | | | [phone] | | | | | | | | +--------+ + + + + | 02/27/ | Appointment | Radiology | Dhara, | | | 2019 | | | [address] | | | | | | [address] [place], | | | | | | [place] [address] | | | | | | [phone] | | | | | | | [...] [place] | | | | | | [place] [address] | | | | | | [phone] | | | | | | | [...] [place] | | | | | | [address] | | | | | | [phone] | | | | | | | [...] | | | | | [place] [address] | | | | | | [phone] | | | | | | | | | | | | Azul Yeboah, | | | | | | MD [address] | | | | | | [place] | | | | | | [place] [address] | | | | | | [phone] | | | | | | | [...] | | | | | | [place] [address] | | | | | | [phone] | | | | | | | | +--------+ + + + + documented as of this encounter Visit Diagnoses Not on filedocumented in this encounter"
--- OUTSIDE RECORDS SUMMARY | ~2020-02-18 | XMS | Encounter Summary ---
Demographics + + + | Address | [address] | | | [place] [address] | + + + | Home Phone [...] Providers + +------+ + | Care Fire Range Technician Name | Role | Phone | [...] Pressure | | 2019 | | [facility] | DO [address] | | | | | MEDICAL CL[facility] [address] | [place] [address] | | | | | [address] [place], | [phone] | | | | | [place] [address] | | | | | | [phone] | | | +--------+ + + + [...] | | 2019 | | | DO [place] | | | | | | [place] [address] | | | | | | [phone] | | | | | | | | | | | | Julia Fisher, | | | | | | PT | | +--------+ + + + + | 02/18/ | Appointment | Rehabilitation | Erika Ernst, | | | 2019 | | | DO [address] | | | | | | [place] [address] | | | | | | [phone] | | | | | | | | | | | | Genesis Ayon OT | | +--------+ + + + + | 02/25/ | Office | Primary Care | Erika Ernst, | | | 2019 | Visit | | DO [address] | | | | | | [place] [address] | | | | | | [phone] | | | | | | | [...] | | | | | [place] [address] | | | | | | [phone] | | | | | | | | +--------+ + + + + | 02/27/ | Appointment | Radiology | Dhara, | | | 2019 | | | [address] | | | | | | [address] [facility], | | | | | | [place] [address] | | | | | | [phone] | | | | | | | [...] [place] | | | | | | [place] [address] | | | | | | [phone] | | | | | | | [...] [place] | | | | | | [address] | | | | | | [phone] | | | | | | | [...] | | | | | [place] [address] | | | | | | [phone] | | | | | | | | | | | | Azul Yeboah, | | | | | | MD [address] | | | | | | [place] | | | | | | [place] [address] | | | | | | [phone] | | | | | | | [...] | | | | | [address] [place], | | | | | | [place] [address] | | | | | | [phone] | | | | | | | | +--------+ + + + + documented as of this encounter Visit Diagnoses Not on filedocumented in this encounter"
--- OUTSIDE RECORDS SUMMARY | ~2020-02-18 | XMS | Encounter Summary ---
Demographics + + + | Address | [address] | | | [place] [address] | + + + | Home Phone [...] Team Providers + +------+ + | Care Tag Marker Name | Role | Phone | [...] | MEDICAL [facility] [address] | [place] [address] | | | | | [address] [place], | [phone] | | | | | [place] [address] | | | | | | [phone] | | | +--------+ + + + [...] | | | | | [place] [address] | | | | | | [phone] | | | | | | | [...] [address] | | | | | | [phone] | | | | | | | | | | | | Genesis Ayon OT | | +--------+ + + + + | 02/25/ | Office | Primary Care | Erika Ernst, | | | 2019 | Visit | | DO [address] | | | | | | [place] [address] | | | | | | [phone] | | | | | | | | +--------+ + + + + | 02/25/ | Appointment | Rehabilitation | Genesis Aoyn OT | | | 2019 | | | | | +--------+ + + + + | 02/26/ | Virtual | Rehabilitation | Usha Rodriguez | | | 2019 | Office | | MD Precious [address] | | | | Visit | | [address] | | | | | | [place] [address] | | | | | | [phone] | | | | | | | | +--------+ + + + + | 02/27/ | Appointment | Radiology | Dhara, | | | 2019 | | | [address] | | | | | | [address]TH [facility], | | | | | | [place] [address] | | | | | | [phone] | | | | | | | [...] ST | | | | | | [place] [address] | | | | | | [phone] | | | | | | | [...] [place] | | | | | | [address] | | | | | | [phone] | | | | | | | [...] | | | | | [place] [address] | | | | | | [phone] | | | | | | | | | | | | Azul Yeboah, | | | | | | MD [address] | | | | | | [place] | | | | | | [place] [address] | | | | | | [phone] | | | | | | | [...] | | | | | | [place] [address] | | | | | | [phone] | | | | | | | | +--------+ + + + + documented as of this encounter Visit Diagnoses Not on filedocumented in this encounter"
--- OUTSIDE RECORDS SUMMARY | ~2020-02-18 | XMS | Encounter Summary ---
Demographics + + + | Address | [address] | | | [place] [address] | + + + | Home Phone [...] Providers + +------+ + | Care Forest Nursery Supervisor Name | Role | Phone [...] | [facility] [address] | [place] [address] | | | | | [address] [place], | [phone] | | | | | [place] [address] | | | | | | [phone] | | | +--------+ + + + [...] | 2019 | | | DO [address] | | | | | | [place] [address] | | | | | | [phone] | | | | | | | | | | | | Julia Fisher, | | | | | | PT | | +--------+ + + + + | 02/18/ | Appointment | Rehabilitation | Erika Ernst, | | | 2019 | | | DO [address] | | | | | | [place] [address] | | | | | | [phone] | | | | | | | | | | | | Genesis Ayon OT | | +--------+ + + + + | 02/25/ | Office | Primary Care | Erika Ernst, | | | 2019 | Visit | | DO [address] | | | | | | [place] [address] | | | | | | [phone] | | | | | | | [...] | | | | | [place] [address] | | | | | | [phone] | | | | | | | | +--------+ + + + + | 02/27/ | Appointment | Radiology | Dhara, | | | 2019 | | | [address] | | | | | | [address] [place], | | | | | | [place] [address] | | | | | | [phone] | | | | | | | [...] | | | | [place] [address] | | | | | | [phone] | | | | | | | [...] [place] | | | | | | [address] | | | | | | [phone] | | | | | | | [...] | | | | | [place] [address] | | | | | | [phone] | | | | | | | | | | | | Azul Yeboah, | | | | | | MD [address] | | | | | | [place] | | | | | | [place] [address] | | | | | | [phone] | | | | | | | [...] | | | | | | [place] [address] | | | | | | [phone] | | | | | | | | +--------+ + + + + documented as of this encounter Visit Diagnoses Not on filedocumented in this encounter"
--- OUTSIDE RECORDS SUMMARY | ~2020-02-18 | XMS | Encounter Summary ---
Demographics + + + | Address | [address] | | | [place] [address] | + + + | Home Phone [...] Providers + +------+ + | Care Automation Sales Manager Name | Role | Phone [...] Refill | | 2018 | | [facility] | [address] | | | | | MEDICAL CLIN[facility] [address] | [facility] [place] [address] | | | | | [address] [place], | [phone] | | | | | [place] [address] | | | | | | [phone] | | | +--------+ + + + [...] | | | | | [place] [address] | | | | | | [phone] | | | | | | | | | | | | Julia Fisher, | | | | | | PT | | +--------+ + + + + | 02/18/ | Appointment | Rehabilitation | Erika Ernst, | | | 2019 | | | DO [address] | | | | | | [place] [address] | | | | | | [phone] | | | | | | | | | | | | [facility] Ayon OT | | +--------+ + + + + | 02/25/ | Office | Primary Care | Erika Ernst, | | | 2019 | Visit | | DO [address] [place] | | | | | | [place] [address] | | | | | | [phone] | | | | | | | [...] | | | | | [place] [address] | | | | | | [phone] | | | | | | | | +--------+ + + + + | 02/27/ | Appointment | Radiology | Dhara, | | | 2019 | | | [address]WA[address] | | | | | | [address] [facility], | | | | | | [place] [address] | | | | | | [phone] | | | | | | | [...] | | | | | [place] [address] | | | | | | [phone] | | | | | | | [...] [place] | | | | | | [address] | | | | | | [phone] | | | | | | | [...] [address] | | | | | | [phone] | | | | | | | | | | | | Azul Yeboah, | | | | | | MD [address] | | | | | | [place] | | | | | | [place] [address] | | | | | | [phone] | | | | | | | [...] | | | | | | [place] [address] | | | | | | [phone] | | | | | | | | +--------+ + + + + documented as of this encounter Visit Diagnoses Not on filedocumented in this encounter"
--- OUTSIDE RECORDS SUMMARY | ~2020-02-18 | XMS | Encounter Summary ---
Demographics + + + | Address | [address] | | | [place] [address] | + + + | Home Phone [...] Team Providers + +------+ + | Care Channeling Machine Operator Name | Role | Phone [...] | 09/26/ | Telephone | CHRISTIMINNIE MARTEL [facility] | OksanaJeffrey Donte, | Other | | 2018 | | [place] [address] | [address] | | | | | [address]VD [place], [place] | [place] [address] | | | | | [address] | [phone] | | | | | [phone] | | | +--------+ + + + [...] | | | | | [place] [address] | | | | | | [phone] | | | | | | | | | | | | Julia Fisher, | | | | | | PT | | +--------+ + + + + | 02/18/ | Appointment | Rehabilitation | Erika Ernst, | | | 2019 | | | DO [address] | | | | | | [place] [address] | | | | | | [phone] | | | | | | | | | | | | Genesis Ayon OT | | +--------+ + + + + | 02/25/ | Office | Primary Care | Erika Ernst, | | | 2019 | Visit | | DO [address] | | | | | | [place] [address] | | | | | | [phone] | | | | | | | [...] | | | | | | [place] [address] | | | | | | [phone] | | | | | | | | +--------+ + + + + | 02/27/ | Appointment | Radiology | Dhara, | | | 2019 | | | [address] | | | | | | 4TH [facility] [place], | | | | | | [place] [address] | | | | | | [phone] | | | | | | | [...] [address] | | | | | | [place] [address] | | | | | | [phone] | | | | | | | [...] [place] | | | | | | [address] | | | | | | [phone] | | | | | | | [...] | | | | | [place] [address] | | | | | | [phone] | | | | | | | | | | | | Azul Yeboah, | | | | | | MD [address] | | | | | | [place] [place] | | | | | | [place] [address] | | | | | | [phone] | | | | | | | [...] | | | | | | [place] [address] | | | | | | [phone] | | | | | | | | +--------+ + + + + documented as of this encounter Visit Diagnoses Not on filedocumented in this encounter"
--- OUTSIDE RECORDS SUMMARY | ~2020-02-18 | XMS | Encounter Summary ---
Demographics + + + | Address | [address] | | | [place] [address] | + + + | Home Phone [...] Team Providers + +------+ + | Care Parks And Recreation Manager Name | Role | Phone | [...] | | | right ankle, | [place] [address] | [place] [address] | | | | | subsequent | Phone: | Phone: | | | | | encounter | [phone] | [phone] | | | | | Procedures | Fax: | Fax: | | | | | PT TREAT | [phone] | [phone] | + +--------+ + + + + [...] [address] | [place] [address] | ankle, subsequent | | | | [place], [place] | [phone] | encounter (Primary | | | | [address] | | Dx) | | | | [phone] | Julia Fisher, | | | | [...] Fisher, PT - 01/01/2020 3:00 PM PDT [facility] THERAPY PT [address] [place] [address] Physical Therapy Progress Assessment Date: 01/01/2020 Patient [...] Certification To: 03/25/2020 Treatment Plan/Interventions PT EvaluationPT Re-[id number] - Therapeutic Bmxjiwyc33636 - Neuromuscular Reeducation9 7116 - Gait Onxikiyy35830 - Therapeutic Kqxaeffnod05645 - Aquatic Therapy/Ukdsvlebg01017 - U rahrgybju81006/G0283 - Electrical Stimulation, Sirqbfurse00712 - Electrical Stimulation, Att imtwy72943 - TENS Application/Instruction Patient and/or family has [...] | Rehabilitation | Erika rEnst, | | 2019 | | | DO [address] | | | | | | [place] [address] | | | | | | [phone] | | | | | | | | | | | | Julia Fisher, | | | | | | PT | | +--------+ + + + + | 02/18/ | Appointment | Rehabilitation | Erika Ernst, | 2019 | | | DO [address] | | | | | | [place] [address] | | | | | | [phone] | | | | | | | | | | | | Genesis Ayon, SUSAN | | +--------+ + + + + | 02/25/ | Office | Primary Care | Erika Ernst, | | | 2019 | Visit | | DO [address] [place] [address] | | | | | | [place] [address] | | | | | | [phone] | | | | | | | [...] | | | | | [place] [address] | | | | | | [phone] | | | | | | | | +--------+ + + + + | 02/27/ | Appointment | Radiology | Dhara, | | | 2019 | | | [address] | | | | | | [address] [place], | | | | | | [place] [address] | | | | | | [phone] | | | | | | | [...] [place] | | | | | | [place] [address] | | | | | | [phone] | | | | | | | [...] [place] | | | | | | [address] | | | | | | [phone] | | | | | | | [...] | | | | | [place] [address] | | | | | | [phone] | | | | | | | | | | | | Azul Yeboah, | | | | | | MD [address] | | | | | | [place] [address] [place] | | | | | | [place] [address] | | | | | | [phone] | | | | | | | [...] | | | | | | [place] [address] | | | | | | [phone] | | | | | | | | +--------+ + + + + documented as of this encounter Visit Diagnoses + + | Diagnosis | + + | Sprain of deltoid ligament of right ankle, subsequent encounter - Primary | + + documented in this encounter"
--- OUTSIDE RECORDS SUMMARY | ~2020-02-18 | XMS | Encounter Summary ---
Demographics + + + | Address | [address] | | | [place] [address] | + + + | Home Phone [...] Team Providers + +------+ + | Care Estate Planning Paralegal Name | Role | Phone | + +------+ + PCP | Unavailable | + +------+ + Encounter Details +--------+ + + + + | Date | Type | Department | Care Team | Description | +--------+ + + + + | 03/23/ | [facility] [place] [facility] | Denise Mcgregor | | | 2017 | Encounter | [facility] | G, ETL DATA ARCHITECT | | | | | MEDICAL CLINIC [address] | | | | | | 4TH [facility] [place], | | | | | | [place] [address] | | | | | | [phone] | | | +--------+ + + + [...] | | | | | [place] [address] | | | | | | [phone] | | | | | | | | | | | | Julia Fisher, | | | | | | PT | | +--------+ + + + + | 02/18/ | Appointment | Rehabilitation | Erika Ernst, | | | 2019 | | | DO [address] | | | | | | [place] [address] | | | | | | [phone] | | | | | | | | | | | | Genesis Ayon OT | | +--------+ + + + + | 02/25/ | Office | Primary Care | Erika Ernst, | | | 2019 | Visit | | DO [address] | | | | | | [place] [address] | | | | | | [phone] | | | | | | | [...] | | | | | [place] [address] | | | | | | [phone] | | | | | | | | +--------+ + + + + | 02/27/ | Appointment | Radiology | Dhara, | | | 2019 | | | [address] | | | | | | [address] [place], | | | | | | [place] [address] | | | | | | [phone] | | | | | | | [...] | | | | | [place] [address] | | | | | | [phone] | | | | | | | [...] [place] | | | | | | [address] | | | | | | [phone] | | | | | | | [...] | | | | | [place] [address] | | | | | | [phone] | | | | | | | | | | | | Azul Yeboah, | | | | | | MD [address] | | | | | | [place] [place] | | | | | | [place] [address] | | | | | | [phone] | | | | | | | [...] | | | | | | [place] [address] | | | | | | [phone] | | | | | | | | +--------+ + + + + documented as of this encounter Visit Diagnoses Not on filedocumented in this encounter"
--- OUTSIDE RECORDS SUMMARY | ~2020-02-18 | XMS | Encounter Summary ---
Demographics + + + | Address | [address] | | | [place] [address] | + + + | Home Phone [...] Team Providers + +------+ + | Care Unclaimed Property Officer Name | Role | Phone | [...] | | | [facility] [address] | [place] [address] | | | | [address] [place], | [phone] | | | | | [place] [address] | | | | | | [phone] | | | +--------+--------+ + + + [...] | | | | | [place] [address] | | | | | | [phone] | | | | | | | | | | | | Julia Fisher, | | | | | | PT | | +--------+ + + + + | 02/18/ | Appointment | Rehabilitation | Erika Ernst, | | | 2019 | | | DO [address] | | | | | | [place] [address] | | | | | | [phone] | | | | | | | | | | | | Genesis Ayon OT | | +--------+ + + + + | 02/25/ | Office | Primary Care | Erika Ernst, | | | 2019 | Visit | | DO [address] | | | | | | [place] [address] | | | | | | [phone] | | | | | | | [...] | | | | | [place] [address] | | | | | | [phone] | | | | | | | | +--------+ + + + + | 02/27/ | Appointment | Radiology | Dhara, | | | 2019 | | | [address] | | | | | | [address] [place], | | | | | | [place] [address] | | | | | | [phone] | | | | | | | | +--------+ + + + + | 03/04/ | Appointment | Rehabilitation | Genesis Ayon OT | | | 2019 | | | | | +--------+ + + + + | 03/09/ | Office | Orthopedic Surgery | Jeffrey Gandhi, | | 2019 | Visit | | [address] | | | | | | [place] [address] | | | | | | [phone] | | | | | | | [...] [place] | | | | | | [address] | | | | | | [phone] | | | | | | | [...] | | | | | [place] [address] | | | | | | [phone] | | | | | | | | | | | | Azul Yeboah, | | | | | | MD [address] | | | | | | [place] [place] | | | | | | [place] [address] | | | | | | [phone] | | | | | | | [...] | | | | | | [place] [address] | | | | | | [phone] | | | | | | | | +--------+ + + + + documented as of this encounter Visit Diagnoses Not on filedocumented in this encounter"
--- OUTSIDE RECORDS SUMMARY | ~2020-02-18 | XMS | Encounter Summary ---
Demographics + + + | Address | [address] | | | [place] [address] | + + + | Home Phone [...] Team Providers + +------+ + | Care Bagman/Woman Name | Role | Phone | + [...] | | | | s (de | [place], [place] | [place] [address] | | | | | quervain) | [address] | Phone: | | | | | Pain in | Phone: | [phone] | | | | | right wrist | [phone] | Fax: | | | | | Procedures | Fax: | [phone] | | | | | OT TREAT | [phone] | | +--------+--------+ + + + + [...] | | [address] [place] | [place] [address] | (Primary Dx); Right | | | | [place], [place] | [phone] | wrist pain | | | | [address] | | | | | | [phone] | Nakia Koo OT | | +--------+ [...] Koo, OT - 11/09/2018 2:17 PM PST [facility] THERAPY OT [address] [place] [address] Occupational Therapy Daily Treatment Note Date: 11/08/2018 [...] wrist but continues to have right wrist, objects conservator and pinch weakness and significant pain (3 [...] in 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, and objects conservator and pinch weakness in the right hand [...] | | | | | [place] [address] | | | | | | [phone] | | | | | | | | | | | | Julia Fisher, | | | | | | PT | | +--------+ + + + + | 02/18/ | Appointment | Rehabilitation | Erika Ernst, | | | 2019 | | | DO [address] | | | | | | [place] [address] | | | | | | [phone] | | | | | | | | | | | | Genesis Ayon OT | | +--------+ + + + + | 02/25/ | Office | Primary Care | Erika Ernst, | | | 2019 | Visit | | DO [address] | | | | | | [place] [address] | | | | | | [phone] | | | | | | | [...] | | | | | [place] [address] | | | | | | [phone] | | | | | | | | +--------+ + + + + | 02/27/ | Appointment | Radiology | Dhara, | | | 2019 | | | [address] | | | | | | 4TH [facility], | | | | | | [place] [address] | | | | | | [phone] | | | | | | | [...] HOSPITAL | | | | | | [place] [address] | | | | | | [phone] | | | | | | | [...] [place] | | | | | | [address] | | | | | | [phone] | | | | | | | [...] | | | | | [place] [address] | | | | | | [phone] | | | | | | | | | | | | Azul Yeboah, | | | | | | MD [address] | | | | | | [place] | | | | | | [place] [address] | | | | | | [phone] | | | | | | | [...] | | | | | | [place] [address] | | | | | | [phone] | | | | | | | | +--------+ + + + + documented as of this encounter Visit Diagnoses + + | Diagnosis | + + | Radial styloid tenosynovitis - Primary | + + | Right wrist pain Pain in joint, forearm | + + documented in this encounter
--- OUTSIDE RECORDS SUMMARY | ~2020-02-18 | XMS | Encounter Summary ---
Demographics + + + | Address | [address] | | | [place] [address] | + + + | Home Phone [...] Providers + +------+ + | Care Plastic Surgery Manager Name | Role | Phone | [...] of | | 2019 | Visit | [facility] | [employer]ER [address] | intermittent asthma, | | | | [facility] [address] | [place] [address] | unspecified asthma | | | | [address] [place], | [phone] | severity (Primary | | | | [place] [address] | | Dx) | | | | [phone] | | | +--------+---------+ + + + [...] every 4 hours, contact your [facility] provider or seek immediate medical attention. [...] turning echevarria or blue Date Last Reviewed: 01/30/201719998782-3643 [employer]. [address] [place] [address], [place] [address]. All [facility] ts reserved. This information is not [...] | | 2019 | | | DO [facility] [address] | | | | | | [facility] [place] [address] | | | | | | [phone] | | | | | | | | | | | | Julia Fisher, | | | | | | PT | | +--------+ + + + + | 02/18/ | Appointment | Rehabilitation | Erika Ernst, | | | 2019 | | | DO [address] | | | | | | [place] [address] | | | | | | [phone] | | | | | | | | | | | | Genesis Ayon OT | | +--------+ + + + + | 02/25/ | Office | Primary Care | Erika Ernst, | | | 2019 | Visit | | DO [address] | | | | | | [place] [address] | | | | | | [phone] | | | | | | | [...] | | | | | [place] [address] | | | | | | [phone] | | | | | | | | +--------+ + + + + | 02/27/ | Appointment | Radiology | Dhara, | | | 2019 | | | [address] | | | | | | [address] [place], | | | | | | [place] [address] | | | | | | [phone] | | | | | | | [...] | | | | | [place] [address] | | | | | | [phone] | | | | | | | [...] [place] | | | | | | [address] | | | | | | [phone] | | | | | | | [...] | | | | | [place] [address] | | | | | | [phone] | | | | | | | | | | | | Azul Yeboah, | | | | | | MD [address] | | | | | | [place] | | | | | | [place] [address] | | | | | | [phone] | | | | | | | [...] | | | | | | [place] [address] | | | | | | [phone] | | | | | | | [...]
--- OUTSIDE RECORDS SUMMARY | ~2020-02-18 | XMS | Encounter Summary ---
Demographics + + + | Address | [address] | | | [place] [address] | + + + | Home Phone [...] Team Providers + +------+ + | Care Riding Teacher Name | Role | Phone | [...] | | | | [place] | [address] | | | | | [address] | [phone] | | | | | [phone] | | | +--------+ + + + [...] | 2019 | | | DO [address] [place] [address] | | | | | | [place] [address] | | | | | | [phone] | | | | | | | | | | | | Julia Fisher, | | | | | | PT | | +--------+ + + + + | 02/18/ | Appointment | Rehabilitation | Erika Ernst, | | | 2019 | | | DO [address] | | | | | | [place] [address] | | | | | | [phone] | | | | | | | | | | | | Genesis Ayon, SUSAN | | +--------+ + + + + | 02/25/ | Office | Primary Care | Erika Ernst, | | | 2019 | Visit | | DO [address] | | | | | | [place] [address] | | | | | | [phone] | | | | | | | [...] | | | | | [place] [address] | | | | | | [phone] | | | | | | | | +--------+ + + + + | 02/27/ | Appointment | Radiology | Dhaar, | | | 2019 | | | [address] | | | | | | [address] [place], | | | | | | [place] [address] | | | | | | [phone] | | | | | | | [...] | | | | | [place] [address] | | | | | | [phone] | | | | | | | [...] [place] | | | | | | [address] | | | | | | [phone] | | | | | | | [...] | | | | | [place] [address] | | | | | | [phone] | | | | | | | | | | | | Azul Yeboah, | | | | | | MD [address] | | | | | | [place] [address] [place] | | | | | | [place] [address] | | | | | | [phone] | | | | | | | [...] | | | | | | [place] [address] | | | | | | [phone] | | | | | | | [...] thoracic | | | scoliosis. JOB #: [id number] Read By: DAYANA | | | Oliver [...] | | biphasic thoracic scoliosis. JOB #: [id number] Read By: DAYANA COON, | | Released [...] | | | | | |JOB #: [id number] | | | |Read By: DAYANA COON MD | | | |Released By: DAYANA COON MD | |Date: 06/02/2016 18:28 | | | | | + + documented in this encounter Visit Diagnoses Not on filedocumented in this encounter"
--- OUTSIDE RECORDS SUMMARY | ~2020-02-18 | XMS | Encounter Summary ---
Demographics + + + | Address | [address] | | | [place] [address] | + + + | Home Phone [...] Providers + +------+ + | Care Sand Technologist Name | Role | Phone | [...] | | | of left | [place] [address] | [place] [address] | | | | | ankle, | Phone: | Phone: | | | | | initial | [phone] | [phone] | | | | | encounter | Fax: | Fax: | | | | | Procedures | [phone] | [phone] | | | | | PT EVAL [...] [address] | [place] [address] | ligament of left | | | | [place], [place] | [phone] | ankle, initial | | | | [address] | | encounter | | | | [phone] | Nick Barrios I, PT | | [...] might be different hannah tan the original. [facility] THERAPY PT [address] [place] [address] Physical Therapy Daily Treatment Note Date: 07/17/2018 [...] | | | | | [place] [address] | | | | | | [phone] | | | | | | | | | | | | Julia Fisher, | | | | | | PT | | +--------+ + + + + | 02/18/ | Appointment | Rehabilitation | Erika Ernst, | | | 2019 | | | DO [address] | | | | | | [place] [address] | | | | | | [phone] | | | | | | | | | | | | Genesis Ayon OT | | +--------+ + + + + | 02/25/ | Office | Primary Care | Erika Ernst, | | | 2019 | Visit | | DO [address] | | | | | | [place] [address] | | | | | | [phone] | | | | | | | [...] | | | | | [place] [address] | | | | | | [phone] | | | | | | | | +--------+ + + + + | 02/27/ | Appointment | Radiology | Dhara, | | | 2019 | | | [address] | | | | | | 4TH [facility], | | | | | | [place] [address] | | | | | | [phone] | | | | | | | [...] [place] | | | | | | [place] [address] | | | | | | [phone] | | | | | | | | +--------+ + + + + | 03/11/ | Appointment | Rehabilitation | Genesis Ayon OT | | 2019 | | | | | +--------+ + + + + | 03/18/ | Appointment | Rehabilitation | Genesis Aoyn OT | | 2019 | | | | | +--------+ + + + + | 03/19/ | Office | Obstetrics and | Emily Avery | | 2019 | Visit | Gynecology | DO Jackelyn Garcia | | | | | | [address] | | | | | | [place] | | | | | | [address] | | | | | | [phone] | | | | | | | [...] | | | | | [place] [address] | | | | | | [phone] | | | | | | | | | | | | Azul Yeboah, | | | | | | MD [address] | | | | | | [place] [place] | | | | | | [place] [address] | | | | | | [phone] | | | | | | | [...] | | | | | | [place] [address] | | | | | | [phone] | | | | | | | | +--------+ + + + + documented as of this encounter Visit Diagnoses + + | Diagnosis | + + | Sprain of calcaneofibular ligament of left ankle, initial encounter | + + documented in this encounter
--- OUTSIDE RECORDS SUMMARY | ~2020-02-18 | XMS | Encounter Summary ---
Demographics + + + | Address | [address] | | | [place] [address] | + + + | Home Phone [...] [facility] [place] | | | [...] + + + + | 12/30/ | [facility] | Cody Go | | | 2017 | Encounter | [facility] | [address] [place] | | | | | [facility] [address] | [facility], [place] | | | | | [facility] [facility], | [address] | | | | | [place] [address] | [phone] | | | | | [phone] | | | +--------+ + + + [...] | | | | | [place] [address] | | | | | | [phone] | | | | | | | | | | | | Julia Fisher, | | | | | | PT | | +--------+ + + + + | 02/18/ | Appointment | Rehabilitation | Erika Ernst, | | | 2019 | | | DO [address] | | | | | | [place] [address] | | | | | | [phone] | | | | | | | | | | | | Genesis Ayon OT | | +--------+ + + + + | 02/25/ | Office | Primary Care | Erika Ernst, | | | 2019 | Visit | | DO [address] [place] [address] | | | | | | [place] [address] | | | | | | [phone] | | | | | | | [...] | | | | | [place] [address] | | | | | | [phone] | | | | | | | | +--------+ + + + + | 02/27/ | Appointment | Radiology | Dhara, | | | 2019 | | | [address] | | | | | | [address] [place], | | | | | | [place] [address] | | | | | | [phone] | | | | | | | [...] | | | | | [place] [address] | | | | | | [phone] | | | | | | | [...] [place] | | | | | | [address] | | | | | | [phone] | | | | | | | [...] | | | | | [place] [address] | | | | | | [phone] | | | | | | | | | | | | Azul Yeboah, | | | | | | MD [address] | | | | | | [address] [place] | | | | | | [place] [address] | | | | | | [phone] | | | | | | | [...] | | | | | | [place] [address] | | | | | | [phone] | | | | | | | | +--------+ + + + + documented as of this encounter Visit Diagnoses Not on filedocumented in this encounter"
--- OUTSIDE RECORDS SUMMARY | ~2020-02-18 | XMS | Encounter Summary ---
Demographics + + + | Address | [address] | | | [place] [address] | + + + | Home Phone [...] Team Providers + +------+ + | Care Truckload Checker Name | Role | Phone | [...] [place] | | 2019 | | [facility] | DO [address] | | | | | MEDICAL CLIN[facility] [address] | [place] [address] | | | | | [address] [place], | [phone] | | | | | [place] [address] | | | | | | [phone] | | | +--------+ + + + [...] | | | | | [place] [address] | | | | | | [phone] | | | | | | | | | | | | Julia Fisher, | | | | | | PT | | +--------+ + + + + | 02/18/ | Appointment | Rehabilitation | Erika Ernst, | | | 2019 | | | DO [address] [place] | | | | | | [place] [address] | | | | | | [phone] | | | | | | | | | | | | Genesis Ayon OT | | +--------+ + + + + | 02/25/ | Office | Primary Care | Erika Ernst, | | | 2019 | Visit | | DO [address] | | | | | | [place] [address] | | | | | | [phone] | | | | | | | [...] | | | | | | [place] [address] | | | | | | [phone] | | | | | | | | +--------+ + + + + | 02/27/ | Appointment | Radiology | Dhara, | | | 2019 | | | [address] | | | | | | [address] [facility], | | | | | | [place] [address] | | | | | | [phone] | | | | | | | | +--------+ + + + + | 03/04/ | Appointment | Rehabilitation | [facility] | | | 2019 | | | | | +--------+ + + + + | 03/09/ | Office | Orthopedic Surgery | Jeffrey Gandhi, | | | 2019 | Visit | | [address] | | | | | | [place] [address] | | | | | | [phone] | | | | | | | [...] [place] | | | | | | [address] | | | | | | [phone] | | | | | | | [...] | | | | | [place] [address] | | | | | | [phone] | | | | | | | | | | | | Azul Yeboah, | | | | | | [address] | | | | | | [address] [address] | | | | | | [place] [address] | | | | | | [phone] | | | | | | | [...] | | | | | | [place] [address] | | | | | | [phone] | | | | | | | | +--------+ + + + + documented as of this encounter Visit Diagnoses Not on filedocumented in this encounter"
--- OUTSIDE RECORDS SUMMARY | ~2020-02-18 | XMS | Encounter Summary ---
Demographics + + + | Address | [address] | | | [place] [address] | + + + | Home Phone [...] Team Providers + +------+ + | Care Mangle Roll Operator Name | Role | Phone [...] | [address] [place] | [place], [place] | due to pollen | | | | [place], [place] | [address] | (Primary Dx); | | | | [address] | [phone] | Deviated nasal | | | | [phone] | | septum | +--------+---------+ + + [...] Clinic Note For: Andrea Suh 28 y.o. [id number] On 04/16/2019, Andrea Suh was seen by [...] of having started traci rgy immunotherapy in [place]. She apparently started this in November 2018. [...] mouth. Once a week Cholecalciferol (VITAMIN D3) 89469 units TABS Take 1 tablet by mouth [...] her neck reveals no periparotid or cervical [id number] ASSESSMENT: Patient has severe temporomandibular joint dysfunction [...] | | | | | [place] [address] | | | | | | [phone] | | | | | | | | | | | | Julia Fisher, | | | | | | PT | | +--------+ + + + + | 02/18/ | Appointment | Rehabilitation | Erika Ernst, | | | 2019 | | | DO [address] [place] | | | | | | [place] [address] | | | | | | [phone] | | | | | | | | | | | | Genesis Ayon OT | | +--------+ + + + + | 02/25/ | Office | Primary Care | Erika Ernst, | | | 2019 | Visit | | DO [address] [place] | | | | | | [place] [address] | | | | | | [phone] | | | | | | | [...] | | | | | [place] [address] | | | | | | [phone] | | | | | | | | +--------+ + + + + | 02/27/ | Appointment | Radiology | Dhara, | | 2019 | | | DWA[address] Ross [address] | | [address] [place], | | | | | | [place] [address] | | | | | | [phone] | | | | | | | | +--------+ + + + + | 03/04/ | Appointment | Rehabilitation | Genesis Ayon OT | | | 2019 | | | | | +--------+ + + + + | 03/09/ | Office | Orthopedic Surgery | Jeffrey Gandhi, | | | 2019 | Visit | | [address] | | | | | | [place] [address] | | | | | | [phone] | | | | | | | [...] [place] | | | | | | [address] | | | | | | [phone] | | | | | | | [...] | | | | | [place] [address] | | | | | | [phone] | | | | | | | | | | | | Azul Yeboah, | | | | | | MD [address] | | | | | | [place] | | | | | | [place] [address] | | | | | | [phone] | | | | | | | [...] | | | | | | [place] [address] | | | | | | [phone] | | | | | | | | +--------+ + + + + documented as of this encounter Visit Diagnoses + + | Diagnosis | + + | Non-seasonal allergic rhinitis due to pollen - Primary | + + | Deviated nasal septum | + + documented in this encounter"
--- OUTSIDE RECORDS SUMMARY | ~2020-02-18 | XMS | Encounter Summary ---
Demographics + + + | Address | [address] | | | [place] [address] | + + + | Home Phone [...] Providers + +------+ + | Care Technical Support Professional Name | Role | Phone | [...] | | | of left | [place] [address] | [place] [address] | | | | | ankle, | Phone: | Phone: | | | | | initial | [phone] | [phone] | | | | | encounter | Fax: | Fax: | | | | | Procedures | [phone] | [phone] | | | | | PT EVAL [...] [address] [place] | [place] [address] | ligament of left | | | | [place], [place] | [phone] | ankle, initial | | | | [address] | | encounter | | | | [phone] | Nick Barrios I, PT | | [...] gait abnormalities. Patient would benefit from skilled director geophysical laboratory apy in order to address noted deficits [...] at 4/10 currently. Treatment Plan/Interventions PT EvaluationPT Re-Ezuzcaminh76248 - Therapeutic Lrvbubbr81328 - Neuromuscular Reeducation9 7116 - Gait Ajddgwhi83768 - Therapeutic Qlynawvarw61674 - Manual Lvsgdjt31734 - Self Care/Ho me Kepsnbirrr59049 - Group Therapeutic Eqsnvuzrfj76534 - Aquatic Therapy/Pyteyxiun95512 - Io vpphgxplsyr39062 - TENS Application/Szdrxhswfpp62760 - Electrical Stimulation, Bxzkcodnyp182 35 - Ultrasound Electronically signed by: Nick Barrios PT, 07/05/2018 18:02 Patient Name: Andrea Suh/: 1990/ oseph, Nick Szymanski, PT - 07/05/2018 4:08 PM PDT [facility] PT [address] [place] [address] Physical Therapy Initial Assessment Date: 07/05/2018 Patient [...] hikin g. 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 Level of [place]: independent Additional Documentation: deviations Gait Deviations: stride [...] Certification To: 08/09/2018 Treatment Plan/Interventions PT EvaluationPT Re-Oqlnldzwck84773 - Therapeutic Rnvysfgg07442 - Neuromuscular Reeducation9 7116 - Gait Zotluwqw08714 - Therapeutic Mkymwrvoid54127 - Manual Bzovohh54622 - Self Care/Ho me Jybnkebwes51087 - Group Therapeutic Drpykcegol07439 - Aquatic Therapy/Asvcwpzdt11508 - Io solilucqpfr85127 - TENS Application/Tqfegxcbisf11283 - Electrical Stimulation, Tnmydxuzrj306 35 - Ultrasound Patient and/or family has [...] | | | | | [place] [address] | | | | | | [phone] | | | | | | | | | | | | Julia Fisher, | | | | | | PT | | +--------+ + + + + | 02/18/ | Appointment | Rehabilitation | Erika Ernst, | | | 2019 | | | DO [address] [place] | | | | | | [place] [address] | | | | | | [phone] | | | | | | | | | | | | Genesis Ayon, OT | | +--------+ + + + + | 02/25/ | Office | Primary Care | Erika Ernst, | | | 2019 | Visit | | DO [address] [place] | | | | | | [place] [address] | | | | | | [phone] | | | | | | | [...] | | | | | [place] [address] | | | | | | [phone] | | | | | | | | +--------+ + + + + | 02/27/ | Appointment | Radiology | Dhara, | | | 2019 | | | DWAINE Ross [address] [place], | | | | | | [place] [address] | | | | | | [phone] | | | | | | | | +--------+ + + + + | 03/04/ | Appointment | Rehabilitation | Genesis Ayon OT | | | 2019 | | | | | +--------+ + + + + | 03/09/ | Office | Orthopedic Surgery | Jeffrey Gandhi, | | 2019 | Visit | | [address] [facility] | | | | | | [place] [address] | | | | | | [phone] | | | | | | | [...] [place] | | | | | | [address] | | | | | | [phone] | | | | | | | [...] | | | | | [place] [address] | | | | | | [phone] | | | | | | | | | | | | Azul Yeboah, | | | | | | MD [address] | | | | | | [place] | | | | | | [place] [address] | | | | | | [phone] | | | | | | | [...] | | | | | | [place] [address] | | | | | | [phone] | | | | | | | [...]
--- OUTSIDE RECORDS SUMMARY | ~2020-02-18 | XMS | Encounter Summary ---
Demographics + + + | Address | [address] | | | [place] [address] | + + + | Home Phone [...] Team Providers + +------+ + | Care Horse Race Timer Name | Role | Phone | + [...] | [address] | | | | | [address] | | | | | | [phone] | | | +--------+ + + + [...] | | | | | [place], [place] [address] | | | | | | [phone] | | | | | | | | | | | | Julia Fisher, | | | | | | PT | | +--------+ + + + + | 02/18/ | Appointment | Rehabilitation | Erika Ernst, | | | 2019 | | | DO [address] [place] | | | | | | [place] [address] | | | | | | [phone] | | | | | | | | | | | | Genesis Ayon OT | | +--------+ + + + + | 02/25/ | Office | Primary Care | Erika Ernst, | | | 2019 | Visit | | DO [address] [place] | | | | | | [place] [address] | | | | | | [phone] | | | | | | | [...] | | | | | [place] [address] | | | | | | [phone] | | | | | | | | +--------+ + + + + | 02/27/ | Appointment | Radiology | Dhara, | | | 2019 | | | DWAINE [address] | | | | | | [address] [facility], | | | | | | [place] [address] | | | | | | [phone] | | | | | | | | +--------+ + + + + | 03/04/ | Appointment | Rehabilitation | Genesis Ayon OT | | | 2019 | | | | | +--------+ + + + + | 03/09/ | Office | Orthopedic Surgery | Jeffrey Gandhi, | | | 2019 | Visit | | MD [address] [facility] | | | | | | [place] [address] | | | | | | [phone] | | | | | | | [...] [place] | | | | | | [address] | | | | | | [phone] | | | | | | | [...] | | | | | [place] [address] | | | | | | [phone] | | | | | | | | | | | | Azul Yeboah, | | | | | | MD [address] | | | | | | [place] | | | | | | [place] [address] | | | | | | [phone] | | | | | | | [...] | | | | | | [place] [address] | | | | | | [phone] | | | | | | | | +--------+ + + + + documented as of this encounter Visit Diagnoses Not on filedocumented in this encounter"
--- OUTSIDE RECORDS SUMMARY | ~2020-02-18 | XMS | Encounter Summary ---
Demographics + + + | Address | [address] | | | [place] [address] | + + + | Home Phone [...] Team Providers + +------+ + | Care Scales Inspector Name | Role | Phone | [...] | | | [place] | [address] | | | | | [address] | | | | | | [phone] | | | +--------+ + + + [...] | | | | | [place] [address] | | | | | | [phone] | | | | | | | | | | | | Julia Fisher, | | | | | | PT | | +--------+ + + + + | 02/18/ | Appointment | Rehabilitation | Erika Ernst, | | | 2019 | | | DO [address] [place] | | | | | | [place] [address] | | | | | | [phone] | | | | | | | | | | | | Genesis Ayon, SUSAN | | +--------+ + + + + | 02/25/ | Office | Primary Care | Erika Ernst, | | | 2019 | Visit | | DO [address] [place] [address] | | | | | | [place] [address] | | | | | | [phone] | | | | | | | [...] | | | | | [place] [address] | | | | | | [phone] | | | | | | | | +--------+ + + + + | 02/27/ | Appointment | Radiology | Dhara, | | | 2019 | | | DWAINE Ross [address] [place], | | | | | | [place] [address] | | | | | | [phone] | | | | | | | | +--------+ + + + + | 03/04/ | Appointment | Rehabilitation | Genesis Ayon OT | | | 2019 | | | | | +--------+ + + + + | 03/09/ | Office | Orthopedic Surgery | Jeffrey Gandhi, | | | 2019 | Visit | | [address] | | | | | | [place] [address] | | | | | | [phone] | | | | | | | [...] [place] | | | | | | [address] | | | | | | [phone] | | | | | | | [...] | | | | | [place] [address] | | | | | | [phone] | | | | | | | | | | | | Azul Yeboah, | | | | | | MD [address] | | | | | | [place] | | | | | | [place] [address] | | | | | | [phone] | | | | | | | [...] | | | | | | [place] [address] | | | | | | [phone] | | | | | | | | +--------+ + + + + documented as of this encounter Visit Diagnoses Not on filedocumented in this encounter"
--- OUTSIDE RECORDS SUMMARY | ~2020-02-18 | XMS | Encounter Summary ---
Demographics + + + | Address | [address] | | | [place] [address] | + + + | Home Phone [...] Providers + +------+ + | Care Colorist Photography Name | Role | Phone | + [...] | | | | s (de | [place], [place] | [place] [address] | | | | | quervain) | [address] | Phone: | | | | | Pain in | Phone: | [phone] | | | | | right wrist | [phone] | Fax: | | | | | Procedures | Fax: | [phone] | | | | | OT TREAT | [phone] | | +--------+--------+ + + + + [...] | | [address] [place] | [place] [address] | (Primary Dx); Right | | | | [place], [place] | [phone] | wrist pain | | | | [address] | | | | | | [phone] | Nakia Koo OT | | +--------+ [...] PST [place] [facility] OT [address] [place] [address] Occupational Therapy Progress Assessment Date: 10/16/2018 Patient [...] 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 Carry a shopping [...] Deviation: 25 Strength: Left Hand Strength - Broadcast Transmitter Operator (lbs) L Broadcast Transmitter Operator Trial 1: 60 L Broadcast Transmitter Operator Trial Average: 60 L Three Jaw Paaym Trial 1: 14 L Three Jaw Payam Trial Average: 14 L Lateral Pinch Trial 1: 16 L Lateral Pinch Trial Average: 16 Right Hand Strength - Broadcast Transmitter Operator (lbs) R Broadcast Transmitter Operator Trial 1: 33 R Broadcast Transmitter Operator Trial Average: 33 R Three Jaw Payam [...] bands and yellow therapy putty to address heating and cooling systems engineer strengthening goals. 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 She has returned to modified work duty and still has a lifting restriction of [address]. She continues to benefit f rom Occupational Therapy to address these deficits and facilitate return to regular duty. 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 strength, but is still experiencing activity [...] in 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, and heating and cooling systems engineer and pinch weakness in the right [...] Goal 2: The pt will have right heating and cooling systems engineer strength of 50 lbs by discharge Goal 2 Status: PARTIALLY MET - Right heating and cooling systems engineer is 33 lbs, left is 60 [...] 08/07/2018 Certification To: 10/30/2018 Treatment Plan/Interventions OT Xezwjxxxox59207 - Therapeutic Jibzesoj71635 - Therapeutic Lqksaantwj29369 - Self Care/Ho me Xqumqtuglp13912 - Manual Qedoerr41262 - Orthotic/Prosthetic Uqemiodc21374 - Zufvjxtilo640 34 - Contrast Lypt15822 - Paraffin BathSplinting Moist heat, cold therapy [...] | | | | | [place] [address] | | | | | | [phone] | | | | | | | [...] [address] | | | | | | [phone] | | | | | | | | | | | | Genesis Ayon OT | | +--------+ + + + + | 02/25/ | Office | Primary Care | Erika Ernst, | | | 2019 | Visit | | DO [address] [place] [address] | | | | | | [place] [address] | | | | | | [phone] | | | | | | | [...] | | | | | [place] [address] | | | | | | [phone] | | | | | | | | +--------+ + + + + | 02/27/ | Appointment | Radiology | Dhara, | | | 2019 | | | DWAINE Ross [address] | | | | | | [address] [facility] [place], | | | | | | [place] [address] | | | | | | [phone] | | | | | | | [...] | | | | | [place] [address] | | | | | | [phone] | | | | | | | [...] [place] | | | | | | [address] | | | | | | [phone] | | | | | | | [...] | | | | | [place] [address] | | | | | | [phone] | | | | | | | | | | | | Azul Yeboah, | | | | | | MD [address] | | | | | | [place] | | | | | | [place] [address] | | | | | | [phone] | | | | | | | [...] | | | | | | [place] [address] | | | | | | [phone] | | | | | | | | +--------+ + + + + documented as of this encounter Visit Diagnoses + + | Diagnosis | + + | Radial styloid tenosynovitis - Primary | + + | Right wrist pain Pain in joint, forearm | + + documented in this encounter"
--- OUTSIDE RECORDS SUMMARY | ~2020-02-18 | XMS | Encounter Summary ---
Demographics + + + | Address | [address] | | | [place] [address] | + + + | Home Phone [...] Team Providers + +------+ + | Care Drug Safety Data Management Specialist Name | Role | Phone | + +------+ + PCP | Unavailable | + +------+ + Encounter Details +--------+ + + + + | Date | Type | Department | Care Team | Description | +--------+ + + + + | 09/10/ | [facility] | [place] [facility] | Erika Ernst, | | | 2014 | Encounter | [facility] | DO [address] | | | | | [facility] [address] | [place] [address] | | | | | [facility] [facility] | [phone] | | | | | [place] [address] | | | | | | [phone] | | | +--------+ + + + [...] | | | | | [place] [address] | | | | | | [phone] | | | | | | | | | | | | Julia Fisher, | | | | | | PT | | +--------+ + + + + | 02/18/ | Appointment | Rehabilitation | Erika Ernst, | | | 2019 | | | DO [address] [place] | | | | | | [place] [address] | | | | | | [phone] | | | | | | | | | | | | Genesis Ayon OT | | +--------+ + + + + | 02/25/ | Office | Primary Care | Erika Ernst, | | | 2019 | Visit | | DO [address] [place] | | | | | | [place] [address] | | | | | | [phone] | | | | | | | [...] | | | | | [place] [address] | | | | | | [phone] | | | | | | | | +--------+ + + + + | 02/27/ | Appointment | Radiology | Dhara, | | | 2019 | | | DWAINE Ross [address] | | | | | | [address] [facility], | | | | | | [place] [address] | | | | | | [phone] | | | | | | | | +--------+ + + + + | 03/04/ | Appointment | Rehabilitation | Genesis Ayon OT | | | 2019 | | | | | +--------+ + + + + | 03/09/ | Office | Orthopedic Surgery | Jeffrey Gandhi, | | | 2019 | Visit | | [address] [facility] | | | | | | [place] [address] | | | | | | [phone] | | | | | | | [...] [place] | | | | | | [address] | | | | | | [phone] | | | | | | | [...] | | | | | [place] [address] | | | | | | [phone] | | | | | | | | | | | | Azul Yeboah, | | | | | | MD [address] | | | | | | [place] | | | | | | [place] [address] | | | | | | [phone] | | | | | | | [...] | | | | | | [place] [address] | | | | | | [phone] | | | | | | | | +--------+ + + + + documented as of this encounter Visit Diagnoses Not on filedocumented in this encounter"
--- OUTSIDE RECORDS SUMMARY | ~2020-02-18 | XMS | Encounter Summary ---
Demographics + + + | Address | [address] | | | [place] [address] | + + + | Home Phone [...] Team Providers + +------+ + | Care Neonatal Intensive Care Unit Nurse Name | Role | Phone | [...] | [place], [place] | [place] [address] | | | | | [address] | [phone] | | | | | [phone] | | | +--------+ + + + [...] | | | | | [place] [address] | | | | | | [phone] | | | | | | | | | | | | Julia Fisher, | | | | | | PT | | +--------+ + + + + | 02/18/ | Appointment | Rehabilitation | Erika Ernst, | | | 2019 | | | DO [address] [place] | | | | | | [place] [address] | | | | | | [phone] | | | | | | | | | | | | Genesis Ayon OT | | +--------+ + + + + | 02/25/ | Office | Primary Care | Erika Ernst, | | | 2019 | Visit | | DO [address] [place] | | | | | | [place] [address] | | | | | | [phone] | | | | | | | [...] | | | | | [place] [address] | | | | | | [phone] | | | | | | | | +--------+ + + + + | 02/27/ | Appointment | Radiology | Dhara, | | | 2019 | | | DWAINE Ross [address] | | | | | | [address] [facility], | | | | | | [place] [address] | | | | | | [phone] | | | | | | | [...] HOSPITAL | | | | | | [place] [address] | | | | | | [phone] | | | | | | | [...] [place] | | | | | | [address] | | | | | | [phone] | | | | | | | [...] | | | | | [place] [address] | | | | | | [phone] | | | | | | | | | | | | Azul Yeboah, | | | | | | MD [address] | | | | | | [place] | | | | | | [place] [address] | | | | | | [phone] | | | | | | | [...] | | | | | | [place] [address] | | | | | | [phone] | | | | | | | | +--------+ + + + + documented as of this encounter Visit Diagnoses Not on filedocumented in this encounter"
--- OUTSIDE RECORDS SUMMARY | ~2020-02-18 | XMS | Encounter Summary ---
Demographics + + + | Address | [address] | | | [place] [address] | + + + | Home Phone [...] Team Providers + +------+ + | Care Chipping Machine Operator Name | Role | Phone [...] | | | | severe | [place] [address] | [place] | | | | | obesity due | Phone: | [phone] | | | | | to excess | [phone] | Phone: | | | | | calories | Fax: | [phone] | | | | | without | [phone] | Fax: | | | | | serious | | [phone] | | | | | comorbidity | [...] | | | | | | | [place] MED NUTR | | | | | | | THER, 1ST, | | | | | | | INDIV, EA 15 | | | | | | | MIN [place] MED | | | | | | [...] | SERVICES [address] | [place] [address] | Benign hypertension; | | | | [place] | [phone] | Morbid obesity | | | | [address] | | ([facility]); Adult body | | | | [phone] | Janel Webster, | mass index 50.0-59.9 | | | | | RD | ([facility]) | +--------+ + + + + Social [...] | 02/29/20 | | | (VITAMIN D3) 10477 | mouth Once a week | tablet [...] | | 2019 | | | DO [address] [place] [address] | | | | | | [facility] [place] [address] | | | | | | [phone] | | | | | | | | | | | | Julia Fisher, | | | | | | PT | | +--------+ + + + + | 02/18/ | Appointment | Rehabilitation | Erika Ernst, | | | 2019 | | | DO [address] [place] | | | | | | [place] [address] | | | | | | [phone] | | | | | | | | | | | | Genesis Ayon, SUSAN | | +--------+ + + + + | 02/25/ | Office | Primary Care | Erika Ernst, | | | 2019 | Visit | | DO [address] [place] | | | | | | [place] [address] | | | | | | [phone] | | | | | | | [...] | | | | | [place] [address] | | | | | | [phone] | | | | | | | | +--------+ + + + + | 02/27/ | Appointment | Radiology | Dhara, | | | 2019 | | | DWAINE [address] | | | | | | [address] [place], | | | | | | [place] [address] | | | | | | [phone] | | | | | | | [...] | | | | | [place] [address] | | | | | | [phone] | | | | | | | [...] [place] | | | | | | [address] | | | | | | [phone] | | | | | | | [...] [address] | | | | | | [phone] | | | | | | | | | | | | Azul Yeboah, | | | | | | MD [address] | | | | | | [place] | | | | | | [place] [address] | | | | | | [phone] | | | | | | | [...] | | | | | | [place] [address] | | | | | | [phone] | | | | | | | [...]
--- OUTSIDE RECORDS SUMMARY | ~2020-02-18 | XMS | Encounter Summary ---
Demographics + + + | Address | [address] | | | [place] [address] | + + + | Home Phone [...] Team Providers + +------+ + | Care Recruitment Internship Name | Role | Phone | [...] | | | right ankle, | [place] [address] | [place] [address] | | | | | subsequent | Phone: | Phone: | | | | | encounter | [phone] | [phone] | | | | | Procedures | Fax: | Fax: | | | | | PT TREAT | [phone] | [phone] | + +--------+ + + + + [...] [address] [place] | [place] [address] | ankle, subsequent | | | | [place], [place] | [phone] | encounter (Primary | | | | [address] | | Dx) | | | | [phone] | Julia Peña, | | | | | | OFFICE CLIN ASST | | +--------+ + + + + [...] of this encounter Progress Notes Julia Peña, OFFICE CLIN ASST - 12/11/2019 1:00 PM PDTFormatting of this note might be differen t from the original. [facility] PT [address] [place] [address] Physical Therapy Daily Treatment Note Date: 12/11/2019 [...] | | | | | [place] [address] | | | | | | [phone] | | | | | | | | | | | | Julia Fisher, | | | | | | PT | | +--------+ + + + + | 02/18/ | Appointment | Rehabilitation | Erika Ernst, | | | 2019 | | | DO [address] [place] | | | | | | [place] [address] | | | | | | [phone] | | | | | | | | | | | | [facility] | | +--------+ + + + + | 02/25/ | Office | Primary Care | Erika Ernst, | | | 2019 | Visit | | DO [address] | | | | | | [place] [address] | | | | | | [phone] | | | | | | | [...] | | | | | [place] [address] | | | | | | [phone] | | | | | | | | +--------+ + + + + | 02/27/ | Appointment | Radiology | Dhara, | | | 2019 | | | [address]WA[address] | | | | | | [address] [facility], | | | | | | [place] [address] | | | | | | [phone] | | | | | | | [...] | | | | | [place] [address] | | | | | | [phone] | | | | | | | [...] [place] | | | | | | [address] | | | | | | [phone] | | | | | | | [...] | | | | | [place] [address] | | | | | | [phone] | | | | | | | | | | | | Azul Yeboah, | | | | | | MD [address] | | | | | | [address] [place] | | | | | | [place] [address] | | | | | | [phone] | | | | | | | [...] | | | | | | [place] [address] | | | | | | [phone] | | | | | | | | +--------+ + + + + documented as of this encounter Visit Diagnoses + + | Diagnosis | + + | Sprain of deltoid ligament of right ankle, subsequent encounter - Primary | + + documented in this encounter"
--- OUTSIDE RECORDS SUMMARY | ~2020-02-18 | XMS | Encounter Summary ---
Demographics + + + | Address | [address] | | | [place] [address] | + + + | Home Phone [...] Team Providers + +------+ + | Care Trader Fixed Income Name | Role | Phone | + +------+ + | Erika Ernst DO | PCP | | + +------+ + Reason for Visit + + + | Reason | Comments | + + + | Advice Only | | + + + | Ear Pain | Pt calling again re: still waiting for a call back from [facility] about | | | left ear pain | + + + Encounter Details +--------+ + + + + | Date | Type | Department | Care Team | Description | +--------+ + + + + | 12/08/ | Telephone | [place] [facility] | Erika Ernst, | Advice Only; Ear | | 2020 | | [facility] | DO [address] | Pain (Pt calling | | | | [facility] [address] | [place] [address] | again re: still | | | | [address] [place], | [phone] | waiting for a call | | | | [place] [address] | | back from [facility] about | | | | [phone] | | left ear pain) | +--------+ + + + + Social [...] | | | | | [place] [address] | | | | | | [phone] | | | | | | | | | | | | Julia Fisher, | | | | | | PT | | +--------+ + + + + | 02/18/ | Appointment | Rehabilitation | Erika Ernst, | | | 2019 | | | DO [address] | | | | | | [place] [address] | | | | | | [phone] | | | | | | | | | | | | Genesis Ayon OT | | +--------+ + + + + | 02/25/ | Office | Primary Care | Erika Ernst, | | | 2019 | Visit | | DO [address] [place] [address] | | | | | | [place] [address] | | | | | | [phone] | | | | | | | [...] | | | | | [place] [address] | | | | | | [phone] | | | | | | | | +--------+ + + + + | 02/27/ | Appointment | Radiology | Dhara, | | | 2019 | | | [address] | | | | | | [address] [place], | | | | | | [place] [address] | | | | | | [phone] | | | | | | | | +--------+ + + + + | 03/04/ | Appointment | Rehabilitation | Genesis Ayon OT | | | 2019 | | | | | +--------+ + + + + | 03/09/ | Office | Orthopedic Surgery | Jeffrey Gandhi, | | | 2019 | Visit | | [address] | | | | | | [place] [address] | | | | | | [phone] | | | | | | | [...] | | | | | | [place] | | | | | | [address] | | | | | | [phone] | | | | | | | [...] | | | | | [place] [address] | | | | | | [phone] | | | | | | | | | | | | Azul Yeboah, | | | | | | [address] | | | | | | [place] | | | | | | [place] [address] | | | | | | [phone] | | | | | | | [...] | | | | | | [place] [address] | | | | | | [phone] | | | | | | | | +--------+ + + + + documented as of this encounter Visit Diagnoses Not on filedocumented in this encounter"
--- OUTSIDE RECORDS SUMMARY | ~2020-02-18 | XMS | Encounter Summary ---
Demographics + + + | Address | [address] | | | [place] [address] | + + + | Home Phone [...] Team Providers + +------+ + | Care Children Librarian Name | Role | Phone | + +------+ + PCP | Unavailable | + +------+ + Encounter Details +--------+ + + + + | Date | Type | Department | Care Team | Description | +--------+ + + + + | 11/15/ | [facility] | Nicanor Mckeon | | | 2016 | Encounter | HOSPITAL NURS[facility] | MD Caryn [address] | | | | | [address] | [place] | | | | | [place] | [address] | | | | | [address] | [phone] | | | | | [phone] | | | +--------+ + + + [...] | | | | | [place] [address] | | | | | | [phone] | | | | | | | | | | | | Julia Fisher, | | | | | | PT | | +--------+ + + + + | 02/18/ | Appointment | Rehabilitation | Erika Ernst, | | | 2019 | | | DO [address] | | | | | | [place] [address] | | | | | | [phone] | | | | | | | | | | | | Genesis Ayon, OT | | +--------+ + + + + | 02/25/ | Office | Primary Care | Erika Ernst, | | | 2019 | Visit | | DO [address] | | | | | | [place] [address] | | | | | | [phone] | | | | | | | [...] | | | | | [place] [address] | | | | | | [phone] | | | | | | | | +--------+ + + + + | 02/27/ | Appointment | Radiology | Dhara, | | | 2019 | | | [address] | | | | | | 4TH [facility], | | | | | | [place] [address] | | | | | | [phone] | | | | | | | | +--------+ + + + + | 03/04/ | Appointment | Rehabilitation | Genesis Ayon OT | | | 2019 | | | | | +--------+ + + + + | 03/09/ | Office | Orthopedic Surgery | Jeffrey Gandhi, | | 2019 | Visit | | [address] | | | | | | [place] [address] | | | | | | [phone] | | | | | | | [...] [place] | | | | | | [address] | | | | | | [phone] | | | | | | | [...] | | | | | [place] [address] | | | | | | [phone] | | | | | | | | | | | | Azul Yeboah, | | | | | | MD [address] | | | | | | [place] | | | | | | [place] [address] | | | | | | [phone] | | | | | | | [...] | | | | | | [place] [address] | | | | | | [phone] | | | | | | | | +--------+ + + + + documented as of this encounter Visit Diagnoses Not on filedocumented in this encounter"
--- OUTSIDE RECORDS SUMMARY | ~2020-02-18 | XMS | Encounter Summary ---
Demographics + + + | Address | [address] | | | [place] [address] | + + + | Home Phone [...] Providers + +------+ + | Care Fire Investigation Manager Name | Role | Phone | [...] Visit | [facility] | MECHANICAL MANUFACTURING TECHNICIAN [address] | intermittent asthma, | | | | [facility] [address] | [place] [address] | unspecified asthma | | | | [address] [place], | [phone] | severity (Primary | | | | [place] [address] | | Dx) | | | | [phone] | | | +--------+---------+ + + + [...] more than every 4 hours, contact your [facility] provider or seek immediate medical attention. [...] turning echevarria or blue Date Last Reviewed: 01/30/201719995698-[address] [place] [address], [place] [address]. All [facility] ts reserved. This information is not [...] | | 2019 | | | DO [facility] [address] | | | | | | [facility] [place] [address] | | | | | | [phone] | | | | | | | | | | | | Julia Fisher, | | | | | | PT | | +--------+ + + + + | 02/18/ | Appointment | Rehabilitation | Erika Ernst, | | | 2019 | | | DO [address] | | | | | | [place] [address] | | | | | | [phone] | | | | | | | | | | | | Genesis Ayon OT | | +--------+ + + + + | 02/25/ | Office | Primary Care | Erika Ernst, | | | 2019 | Visit | | DO [address] | | | | | | [place] [address] | | | | | | [phone] | | | | | | | [...] | | | | | [place] [address] | | | | | | [phone] | | | | | | | | +--------+ + + + + | 02/27/ | Appointment | Radiology | Dhara, | | | 2019 | | | [address] | | | | | | [address] [place], | | | | | | [place] [address] | | | | | | [phone] | | | | | | | [...] | | | | [place] [address] | | | | | | [phone] | | | | | | | [...] [place] | | | | | | [address] | | | | | | [phone] | | | | | | | [...] | | | | | [place] [address] | | | | | | [phone] | | | | | | | | | | | | Azul Yeboah, | | | | | | MD [address] | | | | | | [place] | | | | | | [place] [address] | | | | | | [phone] | | | | | | | [...] | | | | | | [place] [address] | | | | | | [phone] | | | | | | | [...]
--- OUTSIDE RECORDS SUMMARY | ~2020-02-18 | XMS | Encounter Summary ---
Demographics + + + | Address | [address] | | | [place] [address] | + + + | Home Phone [...] Team Providers + +------+ + | Care Recovery Coordinator Name | Role | Phone | [...] [facility] | DO [address] | | | | | [facility]ICAL [facility] [address] | [facility] [place] [address] | | | | | [address] [place], | [phone] | | | | | [place] [address] | | | | | | [phone] | | | +--------+ + + + [...] | | | | | [place] [address] | | | | | | [phone] | | | | | | | | | | | | Forma, Julia M, | | | | | | PT | | +--------+ + + + + | 02/18/ | Appointment | Rehabilitation | Erika Ernst, | | | 2019 | | | DO [address] | | | | | | [place] [address] | | | | | | [phone] | | | | | | | | | | | | Genesis Ayon OT | | +--------+ + + + + | 02/25/ | Office | Primary Care | Erika Ernst, | | | 2019 | Visit | | DO [address] | | | | | | [place] [address] | | | | | | [phone] | | | | | | | [...] | | | | | [place] [address] | | | | | | [phone] | | | | | | | | +--------+ + + + + | 02/27/ | Appointment | Radiology | Dhara, | | | 2019 | | | [address] | | | | | | 4TH [facility], | | | | | | [place] [address] | | | | | | [phone] | | | | | | | [...] ST | | | | | | [place] [address] | | | | | | [phone] | | | | | | | [...] [place] | | | | | | [address] | | | | | | [phone] | | | | | | | [...] | | | | | [place] [address] | | | | | | [phone] | | | | | | | | | | | | Azul Yeboah, | | | | | | MD [address] | | | | | | [place] | | | | | | [place] [address] | | | | | | [phone] | | | | | | | [...] | | | | | | [place] [address] | | | | | | [phone] | | | | | | | | +--------+ + + + + documented as of this encounter Visit Diagnoses Not on filedocumented in this encounter"
--- OUTSIDE RECORDS SUMMARY | ~2020-02-18 | XMS | Encounter Summary ---
Demographics + + + | Address | [address] | | | [place] [address] | + + + | Home Phone [...] + +------+ + | Care Manager Of Distribution Name | Role | Phone | + +------+ + | Erika Ernst DO | PCP | | + +------+ + Encounter Details +--------+ + + + + | Date | Type | Department | Care Team | Description | +--------+ + + + + | 08/29/ | Abstract | [place] [facility] | Uma, | | | 2016 | | [facility] | Hilary Henry RN | | | | | [place] | | | | | | [place] | | | | | | [address] | | | | | | [phone] | | | +--------+ + + + [...] | | | | | [place] [address] | | | | | | [phone] | | | | | | | | | | | | Julia Fisher, | | | | | | PT | | +--------+ + + + + | 02/18/ | Appointment | Rehabilitation | Erika Ernst, | | | 2019 | | | DO [address] | | | | | | [place] [address] | | | | | | [phone] | | | | | | | | | | | | Genesis Ayon, OT | | +--------+ + + + + | 02/25/ | Office | Primary Care | Erika Ernst, | | | 2019 | Visit | | DO [address] | | | | | | [place] [address] | | | | | | [phone] | | | | | | | [...] | | | | | [place] [address] | | | | | | [phone] | | | | | | | | +--------+ + + + + | 02/27/ | Appointment | Radiology | Dhara, | | | 2019 | | | [address] | | | | | | 4TH [facility], | | | | | | [place] [address] | | | | | | [phone] | | | | | | | [...] | | | | [place] [address] | | | | | | [phone] | | | | | | | [...] [place] | | | | | | [address] | | | | | | [phone] | | | | | | | [...] | | | | | [place] [address] | | | | | | [phone] | | | | | | | | | | | | Azul Yeboah, | | | | | | MD [address] | | | | | | [place] | | | | | | [place] [address] | | | | | | [phone] | | | | | | | [...] | | | | | | [place] [address] | | | | | | [phone] | | | | | | | | +--------+ + + + + documented as of this encounter Visit Diagnoses Not on filedocumented in this encounter"
--- OUTSIDE RECORDS SUMMARY | ~2020-02-18 | XMS | Encounter Summary ---
Demographics + + + | Address | [address] | | | [place] [address] | + + + | Home Phone [...] Providers + +------+ + | Care Sales Account Leader Name | Role | Phone | [...] | [facility] | [place] [address] | | | | | [address] [place], | [phone] | | | | | [place] [address] | | | | | | [phone] | | | +--------+ + + + [...] | | | | | [place] [address] | | | | | | [phone] | | | | | | | | | | | | Forma, Julia M, | | | | | | PT | | +--------+ + + + + | 02/18/ | Appointment | Rehabilitation | Erika Ernst, | | | 2019 | | | DO [address] | | | | | | [place] [address] | | | | | | [phone] | | | | | | | | | | | | Genesis Ayon OT | | +--------+ + + + + | 02/25/ | Office | Primary Care | Erika Ernst, | | | 2019 | Visit | | DO [address] | | | | | | [place] [address] | | | | | | [phone] | | | | | | | [...] | | Visit | | [address] | | | | | | [place] [address] | | | | | | [phone] | | | | | | | | +--------+ + + + + | 02/27/ | Appointment | Radiology | Dhara, | | | 2019 | | | [address] | | | | | | 4TH [facility], | | | | | | [place] [address] | | | | | | [phone] | | | | | | | [...] ST | | | | | | [place] [address] | | | | | | [phone] | | | | | | | [...] [place] | | | | | | [address] | | | | | | [phone] | | | | | | | [...] | | | | | [place] [address] | | | | | | [phone] | | | | | | | | | | | | Azul Yeboah, | | | | | | MD [address] | | | | | | [place] | | | | | | [place] [address] | | | | | | [phone] | | | | | | | [...] | | | | | | [place] [address] | | | | | | [phone] | | | | | | | | +--------+ + + + + documented as of this encounter Visit Diagnoses Not on filedocumented in this encounter"
--- OUTSIDE RECORDS SUMMARY | ~2020-02-18 | XMS | Encounter Summary ---
Demographics + + + | Address | [address] | | | [place] [address] | + + + | Home Phone [...] Providers + +------+ + | Care Senior Sql Server Database Developer Name | Role | Phone | [...] CLINIC [address] | [place] [address] | | | | | [address] [facility], | [phone] | | | | | [place] [address] | | | | | | [phone] | | | +--------+ + + + [...] | 2019 | | | DO [address] [facility] [address] [place] | | | | | | [place] [address] | | | | | | [phone] | | | | | | | | | | | | Julia Fisher, | | | | | | PT | | +--------+ + + + + | 02/18/ | Appointment | Rehabilitation | Erika Ernst, | | | 2019 | | | DO [address] | | | | | | [place] [address] | | | | | | [phone] | | | | | | | | | | | | Genesis Ayon OT | | +--------+ + + + + | 02/25/ | Office | Primary Care | Erika Ernst, | | | 2019 | Visit | | DO [address] [place] | | | | | | [place] [address] | | | | | | [phone] | | | | | | | [...] | | | | | [place] [address] | | | | | | [phone] | | | | | | | | +--------+ + + + + | 02/27/ | Appointment | Radiology | Dhara, | | | 2019 | | | [address] | | | | | | 4TH [facility], | | | | | | [place] [address] | | | | | | [phone] | | | | | | | | +--------+ + + + + | 03/04/ | Appointment | Rehabilitation | Genesis Ayon OT | | | 2019 | | | | | +--------+ + + + + | 03/09/ | Office | Orthopedic Surgery | Jeffrey Gandhi, | | | 2019 | Visit | | [address] | | | | | | [place] [address] | | | | | | [phone] | | | | | | | [...] [place] | | | | | | [address] | | | | | | [phone] | | | | | | | | +--------+ + + + + | 03/25/ | Appointment | Rehabilitation | Genessi Ayon OT | | | 2019 | | | | | +--------+ + + + + | 04/08/ | Office | Neurology | Erika Ernst, | | | 2019 | Visit | | DO [address] [place] | | | | | | [place] [address] | | | | | | [phone] | | | | | | | | | | | | Azul Yeboah, | | | | | | MD [address] | | | | | | [place] | | | | | | [place] [address] | | | | | | [phone] | | | | | | | [...] | | | | | | [place] [address] | | | | | | [phone] | | | | | | | | +--------+ + + + + documented as of this encounter Visit Diagnoses Not on filedocumented in this encounter"
--- OUTSIDE RECORDS SUMMARY | ~2020-02-18 | XMS | Encounter Summary ---
Demographics + + + | Address | [address] | | | [place] [address] | + + + | Home Phone [...] Team Providers + +------+ + | Care Riverboat Master Name | Role | Phone | [...] 2020 | | HOSPITAL [facility] | Cody, [address]PA[address] | | | | | CLIN[address] [place], | | | | | [place], | [place] [address] | | | | | [place] [address] | [phone] | | | | | [phone] | | | +--------+ + + + [...] [address] | | | | | | [phone] | | | | | | | | | | | | Julia Fisher, | | | | | | PT | | +--------+ + + + + | 02/18/ | Appointment | Rehabilitation | Erika Ernst, | | | 2019 | | | DO [address] [place] | | | | | | [place] [address] | | | | | | [phone] | | | | | | | | | | | | Genesis Ayon OT | | +--------+ + + + + | 02/25/ | Office | Primary Care | Erika Ernst, | | | 2019 | Visit | | DO [address] [place] | | | | | | [place] [address] | | | | | | [phone] | | | | | | | [...] | | | | | [place] [address] | | | | | | [phone] | | | | | | | | +--------+ + + + + | 02/27/ | Appointment | Radiology | Dhara, | | | 2019 | | | [address] | | | | | | 4TH [facility], | | | | | | [place] [address] | | | | | | [phone] | | | | | | | [...] [place]ORE | | | | | | [place] [address] | | | | | | [phone] | | | | | | | [...] [place] | | | | | | [address] | | | | | | [phone] | | | | | | | [...] | | | | | [place] [address] | | | | | | [phone] | | | | | | | | | | | | Azul Yeboah, | | | | | | MD [address] | | | | | | [place] | | | | | | [place] [address] | | | | | | [phone] | | | | | | | [...] | | | | | | [place] [address] | | | | | | [phone] | | | | | | | | +--------+ + + + + documented as of this encounter Visit Diagnoses Not on filedocumented in this encounter"
--- OUTSIDE RECORDS SUMMARY | ~2020-02-18 | XMS | Encounter Summary ---
Demographics + + + | Address | [address] | | | [place] [address] | + + + | Home Phone [...] Providers + +------+ + | Care Executive Relations Specialist Name | Role | Phone [...] Order | | 2020 | | [facility] | DO [address] | | | | | MEDICAL CLIN[facility] [address] | [place] [address] | | | | | [address] [place], | [phone] | | | | | [place] [address] | | | | | | [phone] | | | +--------+ + + + [...] | | | | | [place] [address] | | | | | | [phone] | | | | | | | | | | | | Julia Fisher, | | | | | | PT | | +--------+ + + + + | 02/18/ | Appointment | Rehabilitation | Erika Ernst, | | | 2019 | | | DO [address] [place] | | | | | | [place] [address] | | | | | | [phone] | | | | | | | | | | | | Genesis Ayon OT | | +--------+ + + + + | 02/25/ | Office | Primary Care | Erika Ernst, | | | 2019 | Visit | | DO [address] [place] | | | | | | [place] [address] | | | | | | [phone] | | | | | | | [...] | | | | | [place] [address] | | | | | | [phone] | | | | | | | | +--------+ + + + + | 02/27/ | Appointment | Radiology | Dhara, | | | 2019 | | | [address] | | | | | | 4TH [facility], | | | | | | [place] [address] | | | | | | [phone] | | | | | | | | +--------+ + + + + | 03/04/ | Appointment | Rehabilitation | Genesis Ayon OT | | | 2019 | | | | | +--------+ + + + + | 03/09/ | Office | Orthopedic Surgery | Jeffrey Gandhi, | | | 2019 | Visit | | [place] [address] | | | | | | [place] [address] | | | | | | [phone] | | | | | | | [...] [place] | | | | | | [address] | | | | | | [phone] | | | | | | | [...] | | | | | [place] [address] | | | | | | [phone] | | | | | | | | | | | | Azul Yeboah, | | | | | | MD [address] | | | | | | [place] | | | | | | [place] [address] | | | | | | [phone] | | | | | | | [...] | | | | | | [place] [address] | | | | | | [phone] | | | | | | | | +--------+ + + + + documented as of this encounter Visit Diagnoses Not on filedocumented in this encounter"
--- OUTSIDE RECORDS SUMMARY | ~2020-02-18 | XMS | Encounter Summary ---
Demographics + + + | Address | [address] | | | [place] [address] | + + + | Home Phone [...] Providers + +------+ + | Care Highway Truck Driver Name | Role | Phone [...] | | | [place], [place] | [address] | | | | | [address] | [phone] | | | | | [phone] | | | +--------+ + + + [...] [address] | | | | | | [phone] | | | | | | | | | | | | Julia Fisher, | | | | | | PT | | +--------+ + + + + | 02/18/ | Appointment | Rehabilitation | Erika Ernst, | | | 2019 | | | DO [address] [place] | | | | | | [place] [address] | | | | | | [phone] | | | | | | | | | | | | Genesis Ayon, OT | | +--------+ + + + + | 02/25/ | Office | Primary Care | Erika Ernst, | | | 2019 | Visit | | DO [address] [place] | | | | | | [place] [address] | | | | | | [phone] | | | | | | | [...] | | | | | [place] [address] | | | | | | [phone] | | | | | | | | +--------+ + + + + | 02/27/ | Appointment | Radiology | Dhara, | | | 2019 | | | [address] | | | | | | 4TH [facility], | | | | | | [place] [address] | | | | | | [phone] | | | | | | | | +--------+ + + + + | 03/04/ | Appointment | Rehabilitation | Genesis Ayon OT | | | 2019 | | | | | +--------+ + + + + | 03/09/ | Office | Orthopedic Surgery | Jeffrey Gandhi, | | | 2019 | Visit | | [address] | | | | | | [place] [address] | | | | | | [phone] | | | | | | | [...] [place] | | | | | | [address] | | | | | | [phone] | | | | | | | [...] | | | | | [place] [address] | | | | | | [phone] | | | | | | | | | | | | Azul Yeboah, | | | | | | MD [address] | | | | | | [place] | | | | | | [place] [address] | | | | | | [phone] | | | | | | | [...] | | | | | | [place] [address] | | | | | | [phone] | | | | | | | | +--------+ + + + + documented as of this encounter Visit Diagnoses Not on filedocumented in this encounter"
--- OUTSIDE RECORDS SUMMARY | ~2020-02-18 | XMS | Encounter Summary ---
Demographics + + + | Address | [address] | | | [place] [address] | + + + | Home Phone [...] Team Providers + +------+ + | Care Superintendent Automotive Name | Role | Phone | + [...] | [facility] | LISA Abad | results) | | | | [address] [place] | | | | | | [place] | | | | | | [address] | | | | | | [phone] | | | +--------+ + + + [...] | | | | | [place] [address] | | | | | | [phone] | | | | | | | | | | | | Julia Fisher, | | | | | | PT | | +--------+ + + + + | 02/18/ | Appointment | Rehabilitation | Erika Ernst, | | | 2019 | | | DO [address] | | | | | | [place] [address] | | | | | | [phone] | | | | | | | | | | | | [facility] | | +--------+ + + + + | 02/25/ | Office | Primary Care | Erika Ernst, | | | 2019 | Visit | | DO [address] | | | | | | [place] [address] | | | | | | [phone] | | | | | | | [...] | | | | | [place] [address] | | | | | | [phone] | | | | | | | | +--------+ + + + + | 02/27/ | Appointment | Radiology | Dhara, | | | 2019 | | | DWAINE [address] | | | | | | [address] [facility], | | | | | | [place] [address] | | | | | | [phone] | | | | | | | [...] | | | | | [place] [address] | | | | | | [phone] | | | | | | | [...] [place] | | | | | | [address] | | | | | | [phone] | | | | | | | [...] | | | | | [place] [address] | | | | | | [phone] | | | | | | | | | | | | Azul Yeboah, | | | | | | MD [address] | | | | | | [place] [place] | | | | | | [place] [address] | | | | | | [phone] | | | | | | | [...] [address] | | | | | | [phone] | | | | | | | | +--------+ + + + + documented as of this encounter Visit Diagnoses Not on filedocumented in this encounter"
--- OUTSIDE RECORDS SUMMARY | ~2020-02-18 | XMS | Encounter Summary ---
Demographics + + + | Address | [address] | | | [place] [address] | + + + | Home Phone [...] Team Providers + +------+ + | Care Gut Cleaner Name | Role | Phone | [...] | | | DR MYRA [place], | [facility], [place] | | | | | [place] [address] | [address] | | | | | [phone] | [phone] | | | | | | | [...] | | | | | [place] [address] | | | | | | [phone] | | | | | | | | | | | | Julia Fisher, | | | | | | PT | | +--------+ + + + + | 02/18/ | Appointment | Rehabilitation | Erika Ernst, | | | 2019 | | | DO [address] | | | | | | [place] [address] | | | | | | [phone] | | | | | | | | | | | | Genesis Ayon OT | | +--------+ + + + + | 02/25/ | Office | Primary Care | Erika Ernst, | | | 2019 | Visit | | DO [address] | | | | | | [place] [address] | | | | | | [phone] | | | | | | | [...] | | | | | [place] [address] | | | | | | [phone] | | | | | | | | +--------+ + + + + | 02/27/ | Appointment | Radiology | Dhara, | | | 2019 | | | [address] | | | | | | [address]TH [facility], | | | | | | [place] [address] | | | | | | [phone] | | | | | | | | +--------+ + + + + | 03/04/ | Appointment | Rehabilitation | Genesis Ayon OT | | | 2019 | | | | | +--------+ + + + + | 03/09/ | Office | Orthopedic Surgery | Jeffrey Gandhi, | | | 2019 | Visit | | [address] | | | | | | [place] [address] | | | | | | [phone] | | | | | | | [...] [place] | | | | | | [address] | | | | | | [phone] | | | | | | | [...] | | | | | [place] [address] | | | | | | [phone] | | | | | | | | | | | | Azul Yeboah, | | | | | | MD [address] | | | | | | [place] | | | | | | [place] [address] | | | | | | [phone] | | | | | | | [...] | | | | | | [place] [address] | | | | | | [phone] | | | | | | | | +--------+ + + + + documented as of this encounter Visit Diagnoses Not on filedocumented in this encounter"
--- OUTSIDE RECORDS SUMMARY | ~2020-02-18 | XMS | Encounter Summary ---
Demographics + + + | Address | [address] | | | [place] [address] | + + + | Home Phone [...] Providers + +------+ + | Care Outpatient Therapist Name | Role | Phone | [...] | | | 2019 | Support | [facility] | DO [address] | | | | | [facility] | [place] [address] | | | | | [address] [place], | [phone] | | | | | [place] [address] | | | | | | [phone] | | | +--------+ + + + [...] of this encounter Progress Notes Evelyn Malik, Reimbursement Analyst-Clinical - 01/10/2020 4:30 PM PDTMet with pt in room #14 [facility] Tiara Redman for nurse visit. Discussed with pt the possibility of being seen in [facility] for a rash that was scheduled inadve rtently for this nurse visit; pt agreeable to be evaluated in [facility] after conclusion of visit. Discussed with pt [...] Pt notes her current therapist here in [facility] was willing to share clinic notes regarding [...] to patient. Pt brought documents from her flaker tender regarding her current potential medications reactio n [...] | | | | | [place] [address] | | | | | | [phone] | | | | | | | | | | | | Julia Fisher, | | | | | | PT | | +--------+ + + + + | 02/18/ | Appointment | Rehabilitation | Erika Ernst, | 2019 | | | DO [address] | | | | | | [place] [address] | | | | | | [phone] | | | | | | | | | | | | Genesis Ayon, SUSAN | | +--------+ + + + + | 02/25/ | Office | Primary Care | Erika Ernst, | | | 2019 | Visit | | DO [address] [place] [address] | | | | | | [place] [address] | | | | | | [phone] | | | | | | | [...] | | | | | [place] [address] | | | | | | [phone] | | | | | | | | +--------+ + + + + | 02/27/ | Appointment | Radiology | Dhara, | | | 2019 | | | [address] | | | | | | [address] [place], | | | | | | [place] [address] | | | | | | [phone] | | | | | | | [...] | | | | | [place] [address] | | | | | | [phone] | | | | | | | [...] [place] | | | | | | [address] | | | | | | [phone] | | | | | | | [...] | | | | | [place] [address] | | | | | | [phone] | | | | | | | | | | | | Azul Yeboah, | | | | | | [address] | | | | | | [place] | | | | | | [place] [address] | | | | | | [phone] | | | | | | | [...] | | | | | | [place] [address] | | | | | | [phone] | | | | | | | | +--------+ + + + + documented as of this encounter Visit Diagnoses Not on filedocumented in this encounter"
--- OUTSIDE RECORDS SUMMARY | ~2020-02-18 | XMS | Encounter Summary ---
Demographics + + + | Address | [address] | | | [place] [address] | + + + | Home Phone [...] Team Providers + +------+ + | Care Luster Repairer Name | Role | Phone | [...] Imaging | | 2019 | | [facility] | DO [address] | | | | | MEDICAL CLIN[facility] [address] | [place] [address] | | | | | [address] [place], | [phone] | | | | | [place] [address] | | | | | | [phone] | | | +--------+ + + + [...] | | | | | [place] [address] | | | | | | [phone] | | | | | | | | | | | | Julia Fisher, | | | | | | PT | | +--------+ + + + + | 02/18/ | Appointment | Rehabilitation | Erika Ernst, | | | 2019 | | | DO [address] | | | | | | [place] [address] | | | | | | [phone] | | | | | | | | | | | | Genesis Ayon OT | | +--------+ + + + + | 02/25/ | Office | Primary Care | Erika Ernst, | | | 2019 | Visit | | DO [address] | | | | | | [place] [address] | | | | | | [phone] | | | | | | | [...] | | | | | [place] [address] | | | | | | [phone] | | | | | | | | +--------+ + + + + | 02/27/ | Appointment | Radiology | Dhara, | | | 2019 | | | [address] | | | | | | [address]TH [place], | | | | | | [place] [address] | | | | | | [phone] | | | | | | | [...] [place] | | | | | | [place] [address] | | | | | | [phone] | | | | | | | [...] [place] | | | | | | [address] | | | | | | [phone] | | | | | | | [...] | | | | | [place] [address] | | | | | | [phone] | | | | | | | | | | | | Azul Yeboah, | | | | | | MD [address] | | | | | | [place] | | | | | | [place] [address] | | | | | | [phone] | | | | | | | [...] | | | | | | [place] [address] | | | | | | [phone] | | | | | | | | +--------+ + + + + documented as of this encounter Visit Diagnoses Not on filedocumented in this encounter"
--- OUTSIDE RECORDS SUMMARY | ~2020-02-18 | XMS | Encounter Summary ---
Demographics + + + | Address | [address] | | | [place] [address] | + + + | Home Phone [...] Providers + +------+ + | Care Plastic Machine Operator Name | Role | Phone [...] | [place], [place] | [place] [address] | | | | | [address] | [phone] | | | | | [phone] | | | +--------+ + + + [...] | | | | | [place] [address] | | | | | | [phone] | | | | | | | | | | | | Julia Fisher, | | | | | | PT | | +--------+ + + + + | 02/18/ | Appointment | Rehabilitation | Erika Ernst, | | | 2019 | | | DO [address] | | | | | | [place] [address] | | | | | | [phone] | | | | | | | | | | | | Genesis Ayon OT | | +--------+ + + + + | 02/25/ | Office | Primary Care | Erika Ernst, | | | 2019 | Visit | | DO [address] | | | | | | [place] [address] | | | | | | [phone] | | | | | | | [...] | | | | | [place] [address] | | | | | | [phone] | | | | | | | | +--------+ + + + + | 02/27/ | Appointment | Radiology | Dhara, | | | 2019 | | | [address] | | | | | | 4TH [facility], | | | | | | [place] [address] | | | | | | [phone] | | | | | | | [...] [place] | | | | | | [place] [address] | | | | | | [phone] | | | | | | | [...] [place] | | | | | | [address] | | | | | | [phone] | | | | | | | [...] | | | | | [place] [address] | | | | | | [phone] | | | | | | | | | | | | Azul Yeboah, | | | | | | MD [address] | | | | | | [place] | | | | | | [place] [address] | | | | | | [phone] | | | | | | | [...] | | | | | | [place] [address] | | | | | | [phone] | | | | | | | | +--------+ + + + + documented as of this encounter Visit Diagnoses Not on filedocumented in this encounter"
--- OUTSIDE RECORDS SUMMARY | ~2020-02-18 | XMS | Encounter Summary ---
Demographics + + + | Address | [address] | | | [place] [address] | + + + | Home Phone [...] Providers + +------+ + | Care Electronic Bench Technician Name | Role | Phone | [...] right | | 2020 | Visit | [facility] | CFO CONTROLLER [address] | knee (Primary Dx) | | | | [facility] | [place] [address] | | | | | [address] [place], | [phone] | | | | | [place] [address] | | | | | | [phone] | | | +--------+---------+ + + + [...] | | | | | [place] [address] | | | | | | [phone] | | | | | | | [...] [address] | | | | | | [phone] | | | | | | | | | | | | Genesis Ayon, OT | | +--------+ + + + + | 02/25/ | Office | Primary Care | Erika Ernst, | | | 2019 | Visit | | DO [address] | | | | | | [place] [address] | | | | | | [phone] | | | | | | | [...] | | | | | [place] [address] | | | | | | [phone] | | | | | | | | +--------+ + + + + | 02/27/ | Appointment | Radiology | Dhara, | | | 2019 | | | [address] | | | | | | [address] [place], | | | | | | [place] [address] | | | | | | [phone] | | | | | | | | +--------+ + + + + | 03/04/ | Appointment | Rehabilitation | Genesis Ayon OT | | | 2019 | | | | | +--------+ + + + + | 03/09/ | Office | Orthopedic Surgery | Jeffrey Gandhi, | | | 2019 | Visit | | [address] [facility] | | | | | | [place] [address] | | | | | | [phone] | | | | | | | [...] [place] | | | | | | [address] | | | | | | [phone] | | | | | | | [...] | | | | | [place] [address] | | | | | | [phone] | | | | | | | | | | | | Azul Yeboah, | | | | | | MD [address] | | | | | | [place] | | | | | | [place] [address] | | | | | | [phone] | | | | | | | [...] | | | | | | [place] [address] | | | | | | [phone] | | | | | | | [...]
--- OUTSIDE RECORDS SUMMARY | ~2020-02-18 | XMS | Encounter Summary ---
Demographics + + + | Address | [address] | | | [place] [address] | + + + | Home Phone [...] Team Providers + +------+ + | Care Thread Marker Name | Role | Phone | [...] | | | | s (de | [place], [place] | [place] [address] | | | | | quervain) | [address] | Phone: | | | | | Pain in | Phone: | [phone] | | | | | right wrist | [phone] | Fax: | | | | | Procedures | Fax: | [phone] | | | | | OT TREAT | [phone] | | +--------+--------+ + + + + [...] | | [address] [place] | [place] [address] | (Primary Dx); Right | | | | [place], [place] | [phone] | wrist pain | | | | [address] | | | | | | [phone] | Nakia Koo OT | | +--------+ [...] | 11/26/19 | | | (VITAMIN D3) 28827 | mouth Once a week | tablet [...] Ordering Physician: Jeffrey Gandhi MD Claim #: [id number] Date of Injury: No data was found [...] at last Assessment Left Hand Strength - Senior Web Architect (lbs) L Senior Web Architect Trial Average: 47 L Three Jaw Payam Trial Average: 12 L Lateral Pinch Trial Average: 17.33 Right Hand Strength - Senior Web Architect (lbs) R Senior Web Architect Trial Average: 25.67 R Three Jaw Payam Trial Average: 9.33 R Lateral Pinch Trial Average: 10.33 Current Strength Strength: Left Hand Strength - Senior Web Architect (lbs) L Senior Web Architect Trial 1: 51 L Senior Web Architect Trial Average: 51 Right Hand Strength - Senior Web Architect (lbs) R Senior Web Architect Trial 1: 25 R Senior Web Architect Trial Average: 25 Proposed Treatment Dates for Majoris Review Proposed treatments date: 12/06/2018 to 01/06/2019 Plan Date of Onset: 07/20/2018 Start of Care Date: 08/07/2018 Requested # of Visits: 24 visits 2x/week for 12 weeks Certification From: 10/30/2018 Certification To: 01/22/2019 Treatment Plan/Interventions OT Tfrtlsktay20390 - Therapeutic Qbdxyuxr21687 - Therapeutic Jhccezuyip13675 - Self Care/Ho me Ftizxzddch01273 - Manual Suispmc83954 - Orthotic/Prosthetic Jpawitmw98434 - Foaqibeczy320 34 - Contrast Cltr34983 - Paraffin BathSplinting Moist heat, cold therapy [...] period and is compliant with wrist and wet finisher strengthening exercises. She does still hav e deficits in wet finisher strength and wrist stability as well as pain with daily activities. Her j ob description may be changing which would decrease the physical demands of her work, making it more appropriate for her current status. She continues to benefit from Clinical Care Manager apy to maximize her wet finisher strength and wrist stability following this injury and return her t o prior level of function. 10/30/2018 - REASON FOR RE-CERTIFICATION: Andrea has received 12 Occupational Therapy treatme nts since 08/07/2018 following her right wrist surgery. She has regained full AROM of the rig ht wrist but continues to have right wrist, wet finisher and pinch weakness and significant pain (3- [...] in 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, and wet finisher and pinch weakness in the right hand [...] might be different from the original. 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 She does still hav e deficits in wet finisher strength and wrist stability as well as pain with daily activities. Her j ob description may be changing which would decrease the physical demands of her work, making it more appropriate for her current status. She continues to benefit from Clinical Care Manager apy to maximize her wet finisher strength and wrist stability following this injury and return her t o prior level of function. 10/30/2018 - REASON FOR RE-CERTIFICATION: Andrea has received 12 Occupational Therapy treatme nts since 08/07/2018 following her right wrist surgery. She has regained full AROM of the rig ht wrist but continues to have right wrist, wet finisher and pinch weakness and significant pain (3- [...] in 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, and wet finisher and pinch weakness in the right hand [...] Goal 2: The pt will have right wet finisher strength of 50 lbs by discharge Goal 2 Status: PARTIALLY MET at [facility] 11/29/2018 - Right wet finisher has increased from 20 to 26 lbs s jessie evaluaiton. Left wet finisher is 47 lbs Goal 3: The pt will have increased right pinch strength to 13 lbs by discharge Goal 3 Status: PARTIALLY MET at [facility] 11/01/2018 - right pinch is 9 lbs, left is 15 lbs Goal 4: The pt will be independent and compliant with HEP Goal 4 Status: ONGOING - pt reports daily compliance with HEP which includes wrist, wet finisher an d pinch strengthening as well as general UE strengthening Plan Date of Onset: 07/20/2018 Start of Care Date: 08/07/2018 Requested # of Visits: 24 visits 2x/week for 12 weeks Certification From: 10/30/2018 Certification To: 01/22/2019 Treatment Plan/Interventions OT Jgtaliusrg74100 - Therapeutic Wrakqpux77592 - Therapeutic Vxdcqcpjny05063 - Self Care/Ho me Ejbcxxlfov05422 - Manual Hjousfp06410 - Orthotic/Prosthetic Tmjpgurs46023 - Jbnlmnzhfs076 34 - Contrast Nzzi89025 - Paraffin BathSplinting Moist heat, cold therapy [...] | | | | | [place] [address] | | | | | | [phone] | | | | | | | | | | | | Julia Fisher, | | | | | | PT | | +--------+ + + + + | 02/18/ | Appointment | Rehabilitation | Erika Ernst, | | 2019 | | | DO [address] | | | | | | [place] [address] | | | | | | [phone] | | | | | | | | | | | | Genesis Ayon, OT | | +--------+ + + + + | 02/25/ | Office | Primary Care | Erika Ernst, | | 2019 | Visit | | DO [address] | | | | | | [place] [address] | | | | | | [phone] | | | | | | | [...] | | | | | [place] [address] | | | | | | [phone] | | | | | | | | +--------+ + + + + | 02/27/ | Appointment | Radiology | Dhara, | | | 2019 | | | [address] | | | | | | 4TH [facility], | | | | | | [place] [address] | | | | | | [phone] | | | | | | | | +--------+ + + + + | 03/04/ | Appointment | Rehabilitation | Genesis Ayon OT | | | 2019 | | | | | +--------+ + + + + | 03/09/ | Office | Orthopedic Surgery | Jeffrey Gandhi, | | | 2019 | Visit | | MD [address] [facility] | | | | | | [place] [address] | | | | | | [phone] | | | | | | | [...] [place] | | | | | | [address] | | | | | | [phone] | | | | | | | [...] | | | | | [place] [address] | | | | | | [phone] | | | | | | | | | | | | Azul Yeboah, | | | | | | MD [address] | | | | | | [place] | | | | | | [place] [address] | | | | | | [phone] | | | | | | | [...] | | | | | | [place] [address] | | | | | | [phone] | | | | | | | | +--------+ + + + + documented as of this encounter Visit Diagnoses + + | Diagnosis | + + | Radial styloid tenosynovitis - Primary | + + | Right wrist pain Pain in joint, forearm | + + documented in this encounter"
--- OUTSIDE RECORDS SUMMARY | ~2020-02-18 | XMS | Encounter Summary ---
Demographics + + + | Address | [address] | | | [place] [address] | + + + | Home Phone [...] + +------+ + | Care Quality Assurance Test Program Manager Name | Role | Phone [...] | [place], [place] | [place] [address] | initial encounter | | | | [address] | [phone] | (Primary Dx) | | | | [phone] | | | +--------+---------+ + + + [...] had subsequent surgery by Dr. Gandhi in [facility] for her right wrist. At that [...] made to ensure accuracy. However, inadvertent computerized computer systems hardware analyst errors may be pre sent. documented in thi s encounter Plan of Treatment +--------+ + + + + | Date | Type | Specialty | Care Team | Description | +--------+ + + + + | 02/18/ | Appointment | Rehabilitation | Erika Ernst, | | | 2019 | | | DO [address] | | | | | | [place], [place] [address] | | | | | | [phone] | | | | | | | | | | | | Julia Fisher, | | | | | | PT | | +--------+ + + + + | 02/18/ | Appointment | Rehabilitation | Erika Ernst, | | | 2019 | | | DO [address] | | | | | | [place] [address] | | | | | | [phone] | | | | | | | | | | | | Genesis Aoyn OT | | +--------+ + + + + | 02/25/ | Office | Primary Care | Erika Ernst, | | | 2019 | Visit | | DO [address] | | | | | | [place] [address] | | | | | | [phone] | | | | | | | [...] | | | | | [place] [address] | | | | | | [phone] | | | | | | | | +--------+ + + + + | 02/27/ | Appointment | Radiology | Dhara, | | | 2019 | | | [address] | | | | | | 4TH [facility], | | | | | | [place] [address] | | | | | | [phone] | | | | | | | [...] | | | | | [place] [address] | | | | | | [phone] | | | | | | | [...] [place] | | | | | | [address] | | | | | | [phone] | | | | | | | [...] | | | | | [place] [address] | | | | | | [phone] | | | | | | | | | | | | Azul Yeboah, | | | | | | MD [address] | | | | | | [place] | | | | | | [place] [address] | | | | | | [phone] | | | | | | | [...] | | | | | | [place] [address] | | | | | | [phone] | | | | | | | [...] + + | [place] [facility] | [address] | [place] | [phone] | | [facility] | | [address] | | + + + + + [...] | mL/min/1.73m2 | [facility] | | | [facility] | | | [...] + + | [place] [facility] | [address] | [place] | [phone] | | H[facility] | | [address] | | + + + + + documented in this encounter Visit Diagnoses + + | Diagnosis | + + | Hand and wrist extensor tendon rupture, left, initial encounter - Primary | + + documented in this encounter"
--- OUTSIDE RECORDS SUMMARY | ~2020-02-18 | XMS | Encounter Summary ---
Demographics + + + | Address | [address] | | | [place] [address] | + + + | Home Phone [...] Providers + +------+ + | Care Roustabout Name | Role | Phone | [...] | | [facility] [address] | [facility] [place] [address] | | | | | [address] [place], | [phone] | | | | | [place] [address] | | | | | | [phone] | | | +--------+ + + + [...] | | | | | [place], [place] [address] | | | | | | [phone] | | | | | | | | | | | | Julia Fisher, | | | | | | PT | | +--------+ + + + + | 02/18/ | Appointment | Rehabilitation | Erika Ernst, | | | 2019 | | | DO [address] [place] | | | | | | [place] [address] | | | | | | [phone] | | | | | | | | | | | | Genesis Ayon OT | | +--------+ + + + + | 02/25/ | Office | Primary Care | Erika Ernst, | | | 2019 | Visit | | DO [address] [place] | | | | | | [place] [address] | | | | | | [phone] | | | | | | | [...] | | | | | [place] [address] | | | | | | [phone] | | | | | | | | +--------+ + + + + | 02/27/ | Appointment | Radiology | Dhara, | | | 2019 | | | [address] | | | | | | 4TH [facility], | | | | | | [place] [address] | | | | | | [phone] | | | | | | | | +--------+ + + + + | 03/04/ | Appointment | Rehabilitation | Genesis Ayon OT | | | 2019 | | | | | +--------+ + + + + | 03/09/ | Office | Orthopedic Surgery | Jeffrey Gandhi, | | | 2019 | Visit | | MD [address] [facility] | | | | | | [place] [address] | | | | | | [phone] | | | | | | | [...] [place] | | | | | | [address] | | | | | | [phone] | | | | | | | [...] [address] | | | | | | [phone] | | | | | | | | | | | | Azul Yeboah, | | | | | | MD [address] | | | | | | [place] | | | | | | [place] [address] | | | | | | [phone] | | | | | | | [...] | | | | | | [place] [address] | | | | | | [phone] | | | | | | | | +--------+ + + + + documented as of this encounter Visit Diagnoses Not on filedocumented in this encounter"
--- OUTSIDE RECORDS SUMMARY | ~2020-02-18 | XMS | Encounter Summary ---
Demographics + + + | Address | [address] | | | [place] [address] | + + + | Home Phone [...] Team Providers + +------+ + | Care Fish Housekeeper Name | Role | Phone | + [...] | [place], [place] | [place] [address] | | | | | [address] | [phone] | | | | | [phone] | | | +--------+ + + + [...] 2019 | | | DO [address] | | | | | | [place] [address] | | | | | | [phone] | | | | | | | | | | | | Julia Fisher, | | | | | | PT | | +--------+ + + + + | 02/18/ | Appointment | Rehabilitation | Erika Ernst, | | | 2019 | | | DO [address] [place] | | | | | | [place] [address] | | | | | | [phone] | | | | | | | | | | | | Genesis Ayon OT | | +--------+ + + + + | 02/25/ | Office | Primary Care | Erika Ernst, | | | 2019 | Visit | | DO [address] [place] | | | | | | [place] [address] | | | | | | [phone] | | | | | | | [...] | | | | | [place] [address] | | | | | | [phone] | | | | | | | | +--------+ + + + + | 02/27/ | Appointment | Radiology | Dhara, | | | 2019 | | | [address] | | | | | | 4TH [facility], | | | | | | [place] [address] | | | | | | [phone] | | | | | | | [...] MOORE | | | | | | [place] [address] | | | | | | [phone] | | | | | | | [...] [place] | | | | | | [address] | | | | | | [phone] | | | | | | | [...] | | | | | [place] [address] | | | | | | [phone] | | | | | | | | | | | | Azul Yeboah, | | | | | | MD [address] | | | | | | [place] [place] | | | | | | [place] [address] | | | | | | [phone] | | | | | | | [...] | | | | | | [place] [address] | | | | | | [phone] | | | | | | | | +--------+ + + + + documented as of this encounter Visit Diagnoses Not on filedocumented in this encounter"
--- OUTSIDE RECORDS SUMMARY | ~2020-02-18 | XMS | Encounter Summary ---
Demographics + + + | Address | [address] | | | [place] [address] | + + + | Home Phone [...] Providers + +------+ + | Care Shearing Shed Hand Name | Role | Phone | [...] [address] | [place] [address] | | | | | [address] [place], | [phone] | | | | | [place] [address] | | | | | | [phone] | | | +--------+ + + + [...] | | | | | [place] [address] | | | | | | [phone] | | | | | | | | | | | | Julia Fisher, | | | | | | PT | | +--------+ + + + + | 02/18/ | Appointment | Rehabilitation | Erika Ernst, | | | 2019 | | | DO [address] | | | | | | [place] [address] | | | | | | [phone] | | | | | | | | | | | | Genesis Ayon, OT | | +--------+ + + + + | 02/25/ | Office | Primary Care | Erika Ernst, | | | 2019 | Visit | | DO [address] | | | | | | [place] [address] | | | | | | [phone] | | | | | | | [...] | | | | | [place] [address] | | | | | | [phone] | | | | | | | | +--------+ + + + + | 02/27/ | Appointment | Radiology | Dhara, | | | 2019 | | | [address] | | | | | | 4TH [facility], | | | | | | [place] [address] | | | | | | [phone] | | | | | | | | +--------+ + + + + | 03/04/ | Appointment | Rehabilitation | Genesis Ayon OT | | 2019 | | | | | +--------+ + + + + | 03/09/ | Office | Orthopedic Surgery | Jeffrey Gandhi, | | | 2019 | Visit | | [address] | | | | | | [place] [address] | | | | | | [phone] | | | | | | | | +--------+ + + + + | 03/11/ | Appointment | Rehabilitation | Genesis Ayon OT | | | 2019 | | | | | +--------+ + + + + | 03/18/ | Appointment | Rehabilitation | eGnesis Ayon OT | | 2019 | | | | | +--------+ + + + + | 03/19/ | Office | Obstetrics and | Emily Avery | | 2019 | Visit | Gynecology | DO Jackelyn Garcia | | | | | | [address] | | | | | | [place], [place] | | | | | | [address] | | | | | | [phone] | | | | | | | [...] | | | | | [place] [address] | | | | | | [phone] | | | | | | | | | | | | Azul Yeboah, | | | | | | MD [address] | | | | | | [address] [place] | | | | | | [place] [address] | | | | | | [phone] | | | | | | | [...] | | | | | | [place] [address] | | | | | | [phone] | | | | | | | | +--------+ + + + + documented as of this encounter Visit Diagnoses Not on filedocumented in this encounter"
--- OUTSIDE RECORDS SUMMARY | ~2020-02-18 | XMS | Encounter Summary ---
Demographics + + + | Address | [address] | | | [place] [address] | + + + | Home Phone [...] Providers + +------+ + | Care Block Trimmer Name | Role | Phone | [...] | [facility] [address] | allergies (Primary | | | | [address] [place], | [phone] | Dx); Anxiety; Iron | | | | [place] [address] | | deficiency | | | | [phone] | | | +--------+---------+ + + + [...] she was seen on 12/11 for by MANUFACTURER. She was given a 10 day course [...] recommend today to take it daily. States power house control room operator told her to ask me about taking [...] seeing a mental health provider now in [place] and will continue FU. She i s [...] LA | | | | | | [facility] [address] | | | | | | [phone] | | | | | | | | | | | | Julia Fisher, | | | | | | PT | | +--------+ + + + + | 02/18/ | Appointment | Rehabilitation | Erika Ernst, | 2019 | | | DO [address] [place] | | | | | | [place] [address] | | | | | | [phone] | | | | | | | | | | | | Genesis Ayon, OT | | +--------+ + + + + | 02/25/ | Office | Primary Care | Erika Ernst, | | | 2019 | Visit | | DO [address] [place] | | | | | | [place] [address] | | | | | | [phone] | | | | | | | [...] | | | | | [place] [address] | | | | | | [phone] | | | | | | | | +--------+ + + + + | 02/27/ | Appointment | Radiology | Dhara, | | 2019 | | | [address] | | | | | | [address] [place], | | | | | | [place] [address] | | | | | | [phone] | | | | | | | [...] | | | | | [place] [address] | | | | | | [phone] | | | | | | | [...] [place] | | | | | | [address] | | | | | | [phone] | | | | | | | [...] | | | | | [place] [address] | | | | | | [phone] | | | | | | | | | | | | Azul Yeboah, | | | | | | [address] | | | | | | [place] [place] | | | | | | [place] [address] | | | | | | [phone] | | | | | | | [...] | | | | | | [place] [address] | | | | | | [phone] | | | | | | | [...]
--- OUTSIDE RECORDS SUMMARY | ~2020-02-18 | XMS | Encounter Summary ---
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 Once a week Cholecalciferol (VITAMIN D3) 76005 units TABS Take 1 tablet by mouth [...] Surgeon: Fani Mahajan MD; Location: [facility] TENDON RELEASE TONSILLECTOMY WISDOM TOOTH EXTRACTION Family History Problem Relation Age of Onset Other (see comment) Mother gallbladder disease Hypertension Father Other (see comment) Father arrhymthmia Breast cancer Sister Cervical cancer Maternal Grandmother Heart attack Maternal Aunt [place] Social History Social History Marital status: Single [...] and their vital signs recorded by my bacteriology research assistant today, a s found in this chart note. Electronically signed by: Emily Mittal DPM 12/06/2018 at 10:37 Note: Part of this report was transcribed using voice recognition software. Every effort wa s made to ensure accuracy. However, inadvertent computerized kaiako kura tuarua errors may be pre sent. CC: Erika [...] | | | | | [place] [address] | | | | | | [phone] | | | | | | | | | | | | Julia Fisher, | | | | | | PT | | +--------+ + + + + | 02/18/ | Appointment | Rehabilitation | Erika Ernst, | | | 2019 | | | DO [address] [place] | | | | | | [place] [address] | | | | | | [phone] | | | | | | | | | | | | Genesis Ayon OT | | +--------+ + + + + | 02/25/ | Office | Primary Care | Erika Ernst, | | | 2019 | Visit | | DO [address] [place] | | | | | | [place] [address] | | | | | | [phone] | | | | | | | [...] | | | | | [place] [address] | | | | | | [phone] | | | | | | | | +--------+ + + + + | 02/27/ | Appointment | Radiology | Dhara, | | | 2019 | | | [address] | | | | | | [address] [place], | | | | | | [place] [address] | | | | | | [phone] | | | | | | | [...] | | | | | [place] [address] | | | | | | [phone] | | | | | | | [...] [place] | | | | | | [address] | | | | | | [phone] | | | | | | | [...] | | | | | [place] [address] | | | | | | [phone] | | | | | | | | | | | | Azul Yeboah, | | | | | | MD [address] | | | | | | [place] [place] | | | | | | [place] [address] | | | | | | [phone] | | | | | | | [...] | | | | | | [place] [address] | | | | | | [phone] | | | | | | | [...]
--- OUTSIDE RECORDS SUMMARY | ~2020-02-18 | XMS | Encounter Summary ---
Demographics + + + | Address | [address] | | | [place] [address] | + + + | Home Phone [...] + +------+ + | Care Service Station Operator Name | Role | Phone [...] foot surgery | [address] [place] | [address] | | | | | Swelling | [place], [place] | Phone: | | | | | of foot | [address] | [phone] | | | | | joint, right | | Fax: | | | | | Procedures | | [phone] | | | | | MRI Foot [...] foot surgery | [address] [place] | [address] | | | | | Swelling | [place], [place] | Phone: | | | | | of foot | [address] | [phone] | | | | | joint, right | | Fax: | | | | | Procedures | | [phone] | | | | | MRI Foot [...] Swelling of foot | | | | [address] | | joint, right | | | | [phone] | | | +--------+ + + + [...] | | | | | [place] [address] | | | | | | [phone] | | | | | | | | | | | | Julia Fisher, | | | | | | PT | | +--------+ + + + + | 02/18/ | Appointment | Rehabilitation | Erika Ernst, | | | 2019 | | | DO [address] [place] | | | | | | [place] [address] | | | | | | [phone] | | | | | | | | | | | | Genesis Ayon, OT | | +--------+ + + + + | 02/25/ | Office | Primary Care | Erika Ernst, | | | 2019 | Visit | | DO [address] [place] | | | | | | [place] [address] | | | | | | [phone] | | | | | | | [...] | | | | | [place] [address] | | | | | | [phone] | | | | | | | | +--------+ + + + + | 02/27/ | Appointment | Radiology | Dhara, | | | 2019 | | | [address] | | | | | | 4TH [facility], | | | | | | [place] [address] | | | | | | [phone] | | | | | | | [...] [place] | | | | | | [place] [address] | | | | | | [phone] | | | | | | | [...] [place] | | | | | | [address] | | | | | | [phone] | | | | | | | [...] | | | | | [place] [address] | | | | | | [phone] | | | | | | | | | | | | Azul Yeboah, | | | | | | MD [address] | | | | | | [place] | | | | | | [place] [address] | | | | | | [phone] | | | | | | | | +--------+ + + + + | 04/08/ | Appointment | Nutrition | Janel Webster | | | 2019 | | | [place], [place]HOA | | +--------+ + + + + | 05/21/ | Office | Neurology | Dhara, | | | 2019 | Visit | | Cody, OFFICE MACHINES SALES REPRESENTATIVE [address] | | | | | | [address]TH [facility] [place], | | | | | | [place] [address] | | | | | | [phone] | | | | | | | [...] IMAGING | | Jeffrey Gandhi MD, [facility], 09/19/19 describes | | | history of Kidner procedure performed Chandler 2015. The findings on | | | [...] navicula. Note from Jeffrey Gandhi MD, [facility], 09/19/19 | | describes history of Kidner procedure performed Chandler2015. The findings on the current | | [...] medial navicula. Note from Jeffrey Gandhi MD, [facility], 09/19/19 describes history of Kidner procedure performed Chandler 2016. The findings on the current study [...]
--- OUTSIDE RECORDS SUMMARY | ~2020-02-18 | XMS | Encounter Summary ---
Demographics + + + | Address | [address] | | | [place] [address] | + + + | Home Phone [...] Providers + +------+ + | Care Counter Hand Name | Role | Phone | + +------+ + PCP | Unavailable | + +------+ + Encounter Details +--------+ + + + + | Date | Type | Department | Care Team | Description | +--------+ + + + + | 09/15/ | [facility] | [facility] | Erika Ernst, | | | 2014 | Encounter | [facility] | DO [address] | | | | | MEDICAL CLINIC [address] | [facility] [place] [place] [address] | | | | | [address] [facility], | [phone] | | | | | [place] [address] | | | | | | [phone] | | | +--------+ + + + [...] | | | | | [place] [address] | | | | | | [phone] | | | | | | | | | | | | Julia Fisher, | | | | | | PT | | +--------+ + + + + | 02/18/ | Appointment | Rehabilitation | Erika Ernst, | | | 2019 | | | DO [address] [place] | | | | | | [place] [address] | | | | | | [phone] | | | | | | | | | | | | Genesis Ayon OT | | +--------+ + + + + | 02/25/ | Office | Primary Care | Erika Ernst, | | | 2019 | Visit | | DO [address] | | | | | | [place] [address] | | | | | | [phone] | | | | | | | [...] | | | | | [place] [address] | | | | | | [phone] | | | | | | | | +--------+ + + + + | 02/27/ | Appointment | Radiology | Dhara, | | | 2019 | | | [address] | | | | | | 4TH [facility], | | | | | | [place] [address] | | | | | | [phone] | | | | | | | [...] HOSPITAL | | | | | | [place] [address] | | | | | | [phone] | | | | | | | [...] [place] | | | | | | [address] | | | | | | [phone] | | | | | | | [...] | | | | | [place] [address] | | | | | | [phone] | | | | | | | | | | | | Azul Yeboah, | | | | | | MD [address] | | | | | | [place] | | | | | | [place] [address] | | | | | | [phone] | | | | | | | [...] | | | | | | [place] [address] | | | | | | [phone] | | | | | | | | +--------+ + + + + documented as of this encounter Visit Diagnoses Not on filedocumented in this encounter"
--- OUTSIDE RECORDS SUMMARY | ~2020-02-18 | XMS | Encounter Summary ---
Demographics + + + | Address | [address] | | | [place] [address] | + + + | Home Phone [...] Team Providers + +------+ + | Care Pumper Hand Name | Role | Phone | + +------+ + PCP | Unavailable | + +------+ + Encounter Details +--------+ + + + + | Date | Type | Department | Care Team | Description | +--------+ + + + + | 08/04/ | [facility] | [facility] | Erika Ernst, | | | 2016 | Encounter | [facility] | DO [address] | | | | | MEDICAL CLINIC [address] | [place] [address] | | | | | [address] [place], | [phone] | | | | | [place] [address] | | | | | | [phone] | | | +--------+ + + + [...] | | | | | [place], [place] [address] | | | | | | [phone] | | | | | | | | | | | | Julia Fisehr, | | | | | | PT | | +--------+ + + + + | 02/18/ | Appointment | Rehabilitation | Erika Ernst, | | | 2019 | | | DO [address] [place] | | | | | | [place] [address] | | | | | | [phone] | | | | | | | | | | | | Genesis Ayon, SUSAN | | +--------+ + + + + | 02/25/ | Office | Primary Care | Erika Ernst, | | | 2019 | Visit | | DO [address] [place] | | | | | | [place] [address] | | | | | | [phone] | | | | | | | [...] | | | | | [place] [address] | | | | | | [phone] | | | | | | | | +--------+ + + + + | 02/27/ | Appointment | Radiology | Dhara, | | 2019 | | | [address] | | | | | | 4TH [facility] [place], | | | | | | [place] [address] | | | | | | [phone] | | | | | | | [...] | | | | | [place] [address] | | | | | | [phone] | | | | | | | [...] [place] | | | | | | [address] | | | | | | [phone] | | | | | | | [...] | | | | | [place] [address] | | | | | | [phone] | | | | | | | | | | | | Azul Yeboah, | | | | | | MD [address] | | | | | | [place] | | | | | | [place] [address] | | | | | | [phone] | | | | | | | [...] | | | | | | [place] [address] | | | | | | [phone] | | | | | | | | +--------+ + + + + documented as of this encounter Visit Diagnoses Not on filedocumented in this encounter"
--- OUTSIDE RECORDS SUMMARY | ~2020-02-18 | XMS | Encounter Summary ---
Demographics + + + | Address | [address] | | | [place] [address] | + + + | Home Phone [...] Team Providers + +------+ + | Care Court Assistant Name | Role | Phone | [...] | MEDICAL CLINIC [address] | [place] [address] | | | | | [address] [place], | [phone] | | | | | [place] [address] | | | | | | [phone] | | | +--------+ + + + [...] | | | | | [place] [address] | | | | | | [phone] | | | | | | | | | | | | Julia Fisher, | | | | | | PT | | +--------+ + + + + | 02/18/ | Appointment | Rehabilitation | Erika Ernst, | | | 2019 | | | DO [address] [place] | | | | | | [place] [address] | | | | | | [phone] | | | | | | | | | | | | Genesis Ayon OT | | +--------+ + + + + | 02/25/ | Office | Primary Care | Erika Ernst, | | | 2019 | Visit | | DO [address] [place] | | | | | | [place] [address] | | | | | | [phone] | | | | | | | [...] | | | | | [place] [address] | | | | | | [phone] | | | | | | | | +--------+ + + + + | 02/27/ | Appointment | Radiology | Dhara, | | | 2019 | | | [address] | | | | | | 4TH [facility], | | | | | | [place] [address] | | | | | | [phone] | | | | | | | [...] [place] | | | | | | [place] [address] | | | | | | [phone] | | | | | | | [...] [place] | | | | | | [address] | | | | | | [phone] | | | | | | | [...] | | | | | [place] [address] | | | | | | [phone] | | | | | | | | | | | | Azul Yeboah, | | | | | | MD [address] | | | | | | [place] | | | | | | [place] [address] | | | | | | [phone] | | | | | | | [...] | | | | | | [place] [address] | | | | | | [phone] | | | | | | | | +--------+ + + + + documented as of this encounter Visit Diagnoses Not on filedocumented in this encounter"
--- OUTSIDE RECORDS SUMMARY | ~2020-02-18 | XMS | Encounter Summary ---
Demographics + + + | Address | [address] | | | [place] [address] | + + + | Home Phone [...] Team Providers + +------+ + | Care Host/Hostess Ground Name | Role | Phone | + [...] | | | 2018 | Support | [facility] | DO [address] | | | | | MEDICAL CLINIC [address] | [place] [address] | | | | | [address] [place], | [phone] | | | | | [place] [address] | | | | | | [phone] | | | +--------+ + + + [...] PM PSTPatient states she was unable to leaf size picker her prazosin as it was the [...] | | | | | [place] [address] | | | | | | [phone] | | | | | | | | | | | | Julia Fisher, | | | | | | PT | | +--------+ + + + + | 02/18/ | Appointment | Rehabilitation | Erika Ernst, | | | 2019 | | | DO [address] [place] | | | | | | [place] [address] | | | | | | [phone] | | | | | | | | | | | | Genesis Ayon OT | | +--------+ + + + + | 02/25/ | Office | Primary Care | Erika Ernst, | | | 2019 | Visit | | DO [address] [place] | | | | | | [place] [address] | | | | | | [phone] | | | | | | | [...] [place] | | | | | | [place] [address] | | | | | | [phone] | | | | | | | | +--------+ + + + + | 02/27/ | Appointment | Radiology | Dhara | | | 2019 | | | [address] | | | | | | [address] [place], | | | | | | [place] [address] | | | | | | [phone] | | | | | | | [...] | | | | | | [place] [address] | | | | | | [phone] | | | | | | | [...] [place] | | | | | | [address] | | | | | | [phone] | | | | | | | [...] | | | | | [place] [address] | | | | | | [phone] | | | | | | | | | | | | Azul Yeboah, | | | | | | [address] | | | | | | [place] | | | | | | [place] [address] | | | | | | [phone] | | | | | | | [...] | | | | | | [place] [address] | | | | | | [phone] | | | | | | | | +--------+ + + + + documented as of this encounter Visit Diagnoses Not on filedocumented in this encounter"
--- OUTSIDE RECORDS SUMMARY | ~2020-02-18 | XMS | Encounter Summary ---
Demographics + + + | Address | [address] | | | [place] [address] | + + + | Home Phone [...] Providers + +------+ + | Care Retirement Officer Name | Role | Phone | [...] | left ankle, | [place], | [address] | | | | | [place] | [place] [address] | [place] | | | | | Procedures | Phone: | [address] | | | | | OUTGOING | [phone] | Phone: | | | | | | Fax: | [phone] | | | | | | [phone] | Fax: | | | | | | | [phone] | +--------+ + + + + + [...] | | | [place], [place] | [address] | (Primary Dx) | | | | [address] | | | | | | [phone] | | | +--------+---------+ + + + [...] | : 1990 | Medical Record Number:[id number] | Author: Emily Mittal DPM | Date [...] [facility] Referral [phone] Treatment and Plan of Care [...] deemed to be medically stationary by the [facility] orthopedic surgeon and by myself. I have recommended to the patient that she seek another opinion from the [facility] clinic in [facility]. I've re commended that she obtain her medical records in addition to her x-rays and MRI to allow for evaluation by another set of eyes in the hope that an overall more positive outcome for the patient can be reached. I expressed concern for this patient and believe that she may find resolution with a fourth opinion. I spent 15 minutes tukd-nz-awys with the patient, with over 50% spent [...] Location: [facility] SURGERY RIGHT KIDNER PROCEDURE 01/20/2016 Surgeon: Fani Mahajan MD; Location: [facility] TENDON RELEASE TONSILLECTOMY WISDOM TOOTH EXTRACTION Family History Problem Relation Age of Onset Other (see comment) Mother gallbladder disease Diabetes Mother Heart disease Mother Hypertension Father Other (see comment) Father arrhymthmia Breast cancer Sister Breast cancer Maternal Grandmother Heart attack Maternal Aunt [place] Hypertension Maternal Uncle Social History Socioeconomic History [...] their vital signs recorded by my retail loan originator assistant today, a s found in this chart note. Electronically signed by: Emily Mittal DPM 12/06/2018 at 16:19 Note: Part of this report was transcribed using voice recognition software. Every effort wa s made to ensure accuracy. However, inadvertent computerized panel gluer errors may be pre sent. CC: Erika [...] | | | | | [place] [address] | | | | | | [phone] | | | | | | | | | | | | Julia Fisher, | | | | | | PT | | +--------+ + + + + | 02/18/ | Appointment | Rehabilitation | Erika Ernst, | | 2019 | | | DO [address] [place] | | | | | | [place] [address] | | | | | | [phone] | | | | | | | | | | | | Genesis Ayon, SUSAN | | +--------+ + + + + | 02/25/ | Office | Primary Care | Erika Ernst, | | | 2019 | Visit | | DO [address] [place] [address] | | | | | | [place] [address] | | | | | | [phone] | | | | | | | [...] | | | | | [place] [address] | | | | | | [phone] | | | | | | | | +--------+ + + + + | 02/27/ | Appointment | Radiology | Dhara, | | 2019 | | | [address] | | | | | | [address] [place], | | | | | | [place] [address] | | | | | | [phone] | | | | | | | [...] | | | | [place] [address] | | | | | | [phone] | | | | | | | [...] [place] | | | | | | [address] | | | | | | [phone] | | | | | | | [...] [address] | | | | | | [phone] | | | | | | | | | | | | Azul Yeboah, | | | | | | [address] | | | | | | [place] | | | | | | [place] [address] | | | | | | [phone] | | | | | | | [...] | | | | | | [place] [address] | | | | | | [phone] | | | | | | | [...]
--- OUTSIDE RECORDS SUMMARY | ~2020-02-18 | XMS | Encounter Summary ---
Demographics + + + | Address | [address] | | | [place] [address] | + + + | Home Phone [...] Providers + +------+ + | Care Heating Systems Installer Name | Role | Phone [...] | n | lar ligament | [place], | [place], | | | | | [place] left | [place] [address] | [place] [address] | | | | | ankle, | Phone: | Phone: | | | | | initial | [phone] | [phone] | | | | | encounter | Fax: | Fax: | | | | | Procedures | [phone] | [phone] | | | | | PT EVAL [...] [address] [place] | [place] [address] | encounter (Primary | | | | [place], [place] | [phone] | Dx); Fall on same | | | | [address] | | level from slipping, | | | | [phone] | Nick Barrios I, PT | subsequent [...] be different fro m the original. [facility] THERAPY PT [address] [place] [address] Physical Therapy Daily Treatment Note Date: 08/07/2018 [...] balance exercises well, but continues to require RELAY ADJUSTER with use of hip and ankle strategies [...] in favor of SL heel raise with RELAY ADJUSTER. ONGOING: SLS on even surface 3x30 seconds [...] (15 minutes) SL stance on airex with RELAY ADJUSTER 3x30 sec eyes open/closed e ach // Tandem stance 2x1 minute each foot position RELAY ADJUSTER // DL stance on round bosu 2x1 minute each eyes open/closed RELAY ADJUSTER // additional time required for rest between [...] | | | | | [place] [address] | | | | | | [phone] | | | | | | | | | | | | Julia Fisher, | | | | | | PT | | +--------+ + + + + | 02/18/ | Appointment | Rehabilitation | Erika Ernst, | | | 2019 | | | DO [address] [place] | | | | | | [place] [address] | | | | | | [phone] | | | | | | | | | | | | Genesis Ayon OT | | +--------+ + + + + | 02/25/ | Office | Primary Care | Erika Ernst, | | | 2019 | Visit | | DO [address] [place] [address] | | | | | | [place] [address] | | | | | | [phone] | | | | | | | [...] | | | | | [place] [address] | | | | | | [phone] | | | | | | | | +--------+ + + + + | 02/27/ | Appointment | Radiology | Dhara, | | | 2019 | | | DWAINE Ross [address] | | | | | | [address] [place], | | | | | | [place] [address] | | | | | | [phone] | | | | | | | | +--------+ + + + + | 03/04/ | Appointment | Rehabilitation | Genesis Ayon OT | | | 2019 | | | | | +--------+ + + + + | 03/09/ | Office | Orthopedic Surgery | Jeffrey Gandhi, | | | 2019 | Visit | | [address] | | | | | | [place] [address] | | | | | | [phone] | | | | | | | | +--------+ + + + + | 03/11/ | Appointment | Rehabilitation | eGnesis Ayon [...] [place] | | | | | | [address] | | | | | | [phone] | | | | | | | [...] | | | | | [place] [address] | | | | | | [phone] | | | | | | | | | | | | Azul Yeboah, | | | | | | [address] | | | | | | [place] | | | | | | [place] [address] | | | | | | [phone] | | | | | | | [...] | | | | | | [place] [address] | | | | | | [phone] | | | | | | | | +--------+ + + + + documented as of this encounter Visit Diagnoses + + | Diagnosis | + + | Sprain of left ankle, subsequent encounter - Primary | + + | Fall on same level from slipping, subsequent encounter | + + documented in this encounter
--- OUTSIDE RECORDS SUMMARY | ~2020-02-18 | XMS | Encounter Summary ---
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 Show this to your [facility] provider to help find the cause of [...] Difficulty talking or seeing Date Last Reviewed: 05/02/201619999532-7931 [employer]. [address] [place] [address], [place] [address]. All [facility] ts reserved. This information is not intended [...] movements suggesting a seizure Date Last Reviewed: 09/01/201719997207-2418 [employer]. [address] [place] [address], [place] [address]. All righ ts reserved. This information is not intended as a substitute for professional medical care. Always follow your healthcare professional's instructions. documented in this encounter Progress Notes Cody Jules FNP - 02/10/2020 8:45 AM PDT Patient: Andrea Suh Medical Record: [id number] Date of Services: 02/10/2020 Referring Doctor: Erika [...] so the cause of is not clear. [facility] mother did have a [...] are intact. There is no dysmetria on mrlgfx-mo-qabp and wmeh-ncgy-sshs. There are no abnormal or extraneous movements. [...] least 30 minutes three times a w knik will help reduce frequency or severity of [...] | | | | | [place] [address] | | | | | | [phone] | | | | | | | | | | | | Julia Fisher, | | | | | | PT | | +--------+ + + + + | 02/18/ | Appointment | Rehabilitation | Erika Ernst, | | | 2019 | | | DO [address] [place] | | | | | | [place] [address] | | | | | | [phone] | | | | | | | | | | | | Genesis Ayon, OT | | +--------+ + + + + | 02/25/ | Office | Primary Care | Erika Ernst, | | | 2019 | Visit | | DO [address] [place] | | | | | | [place] [address] | | | | | | [phone] | | | | | | | [...] | | | | | [place] [address] | | | | | | [phone] | | | | | | | | +--------+ + + + + | 02/27/ | Appointment | Radiology | Dhara, | | | 2019 | | | DWAINE Ross [address] | | | | | | 4TH [facility], | | | | | | [place] [address] | | | | | | [phone] | | | | | | | | +--------+ + + + + | 03/04/ | Appointment | Rehabilitation | Genesis Ayon OT | | 2019 | | | | | +--------+ + + + + | 03/09/ | Office | Orthopedic Surgery | Jeffrey Gandhi, | | | 2019 | Visit | | MD [address] [facility] | | | | | | [place] [address] | | | | | | [phone] | | | | | | | [...] [place] | | | | | | [address] | | | | | | [phone] | | | | | | | [...] | | | | | [place] [address] | | | | | | [phone] | | | | | | | | | | | | Azul Yeboah, | | | | | | MD [address] | | | | | | [place] | | | | | | [place] [address] | | | | | | [phone] | | | | | | | [...] | | | | | | [place] [address] | | | | | | [phone] | | | | | | | [...]
--- OUTSIDE RECORDS SUMMARY | ~2020-02-18 | XMS | Encounter Summary ---
Demographics + + + | Address | [address] | | | [place] [address] | + + + | Home Phone [...] Providers + +------+ + | Care Machine Rigger Name | Role | Phone | [...] | [address] [place] | [place] [address] | | | | | [place] | [phone] | | | | | [address] | | | | | | [phone] | | | +--------+ + + + [...] [address] | | | | | | [phone] | | | | | | | | | | | | Julia Fisher, | | | | | | PT | | +--------+ + + + + | 02/18/ | Appointment | Rehabilitation | Erika Ernst, | | | 2019 | | | DO [address] [place] | | | | | | [place] [address] | | | | | | [phone] | | | | | | | | | | | | Genesis Ayon OT | | +--------+ + + + + | 02/25/ | Office | Primary Care | Erika Ernst, | | | 2019 | Visit | | DO [address] [place] | | | | | | [place] [address] | | | | | | [phone] | | | | | | | [...] | | | | | [place] [address] | | | | | | [phone] | | | | | | | | +--------+ + + + + | 02/27/ | Appointment | Radiology | Dhara, | | | 2019 | | | DWAINE Ross [address] | | | | | | 4TH [facility], | | | | | | [place] [address] | | | | | | [phone] | | | | | | | [...] [place] | | | | | | [place] [address] | | | | | | [phone] | | | | | | | [...] [place] | | | | | | [address] | | | | | | [phone] | | | | | | | [...] | | | | | [place] [address] | | | | | | [phone] | | | | | | | | | | | | Azul Yeboah, | | | | | | MD [address] | | | | | | [place] | | | | | | [place] [address] | | | | | | [phone] | | | | | | | [...] | | | | | | [place] [address] | | | | | | [phone] | | | | | | | | +--------+ + + + + documented as of this encounter Visit Diagnoses Not on filedocumented in this encounter"
--- OUTSIDE RECORDS SUMMARY | ~2020-02-18 | XMS | Encounter Summary ---
Demographics + + + | Address | [address] | | | [place] [address] | + + + | Home Phone [...] Providers + +------+ + | Care Social Sciences Chair Name | Role | Phone | [...] | [place], [place] | [place] [address] | | | | | [address] | [phone] | | | | | [phone] | | | +--------+---------+ + + + [...] | | | | | [place] [address] | | | | | | [phone] | | | | | | | | | | | | Julia Fisher, | | | | | | PT | | +--------+ + + + + | 02/18/ | Appointment | Rehabilitation | Erika Ernst, | | | 2019 | | | DO [address] [place] | | | | | | [place] [address] | | | | | | [phone] | | | | | | | | | | | | Genesis Ayon OT | | +--------+ + + + + | 02/25/ | Office | Primary Care | Erika Ernst, | | | 2019 | Visit | | DO [address] [place] | | | | | | [place] [address] | | | | | | [phone] | | | | | | | [...] | | | | | [place] [address] | | | | | | [phone] | | | | | | | | +--------+ + + + + | 02/27/ | Appointment | Radiology | Dhara, | | | 2019 | | | DWAINE Ross [address] | | | | | [address] [place], | | | | | | [place] [address] | | | | | | [phone] | | | | | | | [...] | | | | [place] [address] | | | | | | [phone] | | | | | | | [...] [place] | | | | | | [address] | | | | | | [phone] | | | | | | | [...] | | | | | [place] [address] | | | | | | [phone] | | | | | | | | | | | | Azul Yeboah, | | | | | | [address] | | | | | | [place] | | | | | | [place] [address] | | | | | | [phone] | | | | | | | [...] | | | | | | [place] [address] | | | | | | [phone] | | | | | | | | +--------+ + + + + documented as of this encounter Visit Diagnoses Not on filedocumented in this encounter"
--- OUTSIDE RECORDS SUMMARY | ~2020-02-18 | XMS | Encounter Summary ---
Demographics + + + | Address | [address] | | | [place] [address] | + + + | Home Phone [...] Team Providers + +------+ + | Care Scenery Builder Name | Role | Phone | [...] | | | | s (de | [place], [place] | [place] [address] | | | | | quervain) | [address] | Phone: | | | | | Pain in | Phone: | [phone] | | | | | right wrist | [phone] | Fax: | | | | | Procedures | Fax: | [phone] | | | | | OT TREAT | [phone] | | +--------+--------+ + + + + [...] | | [address] [place] | [place] [address] | (Primary Dx); Right | | | | [place], [place] | [phone] | wrist pain | | | | [address] | | | | | | [phone] | Nakia Koo OT | | +--------+ [...] | 19 | 9 | | BRACE [id number]) | | | | | | | [...] OT - 11/01/2018 1:22 PM PST [facility] THERAPY OT [address] [place] [address] Occupational Therapy Daily Treatment Note Date: 11/01/2018 [...] wrist but continues to have right wrist, worm sorter and pinch weakness and significant pain (3 [...] in 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, and worm sorter and pinch weakness in the right hand [...] [place] | | | | | | [place] [address] | | | | | | [phone] | | | | | | | | | | | | Julia Fisher, | | | | | | PT | | +--------+ + + + + | 02/18/ | Appointment | Rehabilitation | Erika Ernst, | 2019 | | | DO [address] [place] | | | | | | [place] [address] | | | | | | [phone] | | | | | | | | | | | | Genesis Ayon, OT | | +--------+ + + + + | 02/25/ | Office | Primary Care | Erika Ernst, | | | 2019 | Visit | | DO [address] [place] | | | | | | [place] [address] | | | | | | [phone] | | | | | | | [...] | | | | | [place] [address] | | | | | | [phone] | | | | | | | | +--------+ + + + + | 02/27/ | Appointment | Radiology | Dhara, | | | 2019 | | | DWAINE Ross [address] [place], | | | | | | [place] [address] | | | | | | [phone] | | | | | | | [...] | | | | | [place] [address] | | | | | | [phone] | | | | | | | [...] [place] | | | | | | [address] | | | | | | [phone] | | | | | | | [...] | | | | | [place] [address] | | | | | | [phone] | | | | | | | | | | | | Azul Yeboah, | | | | | | [address] | | | | | | [place] | | | | | | [place] [address] | | | | | | [phone] | | | | | | | [...] | | | | | | [place] [address] | | | | | | [phone] | | | | | | | | +--------+ + + + + documented as of this encounter Visit Diagnoses + + | Diagnosis | + + | Radial styloid tenosynovitis - Primary | + + | Right wrist pain Pain in joint, forearm | + + documented in this encounter
--- OUTSIDE RECORDS SUMMARY | ~2020-02-18 | XMS | Encounter Summary ---
Demographics + + + | Address | [address] | | | [place] [address] | + + + | Home Phone [...] Providers + +------+ + | Care Outdoor Education Teacher Name | Role | Phone [...] | [place], [place] | [place] [address] | | | | | [address] | [phone] | | | | | [phone] | | | +--------+ + + + [...] | 04/12/20 | | | (VITAMIN D3) 10056 | mouth Once a week | tablet [...] | | | | | [place] [address] | | | | | | [phone] | | | | | | | | | | | | Julia Fisher, | | | | | | PT | | +--------+ + + + + | 02/18/ | Appointment | Rehabilitation | Erika Ernst, | | | 2019 | | | DO [address] [place] | | | | | | [place] [address] | | | | | | [phone] | | | | | | | | | | | | Genesis Ayon, OT | | +--------+ + + + + | 02/25/ | Office | Primary Care | Erika Ernst, | | | 2019 | Visit | | DO [address] [place] | | | | | | [place] [address] | | | | | | [phone] | | | | | | | [...] | | | | | [place] [address] | | | | | | [phone] | | | | | | | | +--------+ + + + + | 02/27/ | Appointment | Radiology | Dhara, | | | 2019 | | | DWAINE Ross [address] [place], | | | | | | [place] [address] | | | | | | [phone] | | | | | | | | +--------+ + + + + | 03/04/ | Appointment | Rehabilitation | Genesis Ayon OT | | | 2019 | | | | | +--------+ + + + + | 03/09/ | Office | Orthopedic Surgery | Jeffrey Gandhi, | | | 2019 | Visit | | [place] [address] [facility] | | | | | | [place] [address] | | | | | | [phone] | | | | | | | [...] [place] | | | | | | [address] | | | | | | [phone] | | | | | | | [...] | | | | | [place] [address] | | | | | | [phone] | | | | | | | | | | | | Azul Yeboah, | | | | | | MD [address] | | | | | | [place] | | | | | | [place] [address] | | | | | | [phone] | | | | | | | [...] | | | | | | [place] [address] | | | | | | [phone] | | | | | | | [...]
--- OUTSIDE RECORDS SUMMARY | ~2020-02-18 | XMS | Encounter Summary ---
Demographics + + + | Address | [address] | | | [place] [address] | + + + | Home Phone [...] + +------+ + | Care Sales Representative [employer]s Name | Role | Phone | + [...] | CENTER [address] [place], [place] | | | | | [place], [place] | [address] | | | | | [address] | | | | | | [phone] | | | +--------+ + + + [...] | | | | | [place] [address] | | | | | | [phone] | | | | | | | | | | | | Julia Fisher, | | | | | | PT | | +--------+ + + + + | 02/18/ | Appointment | Rehabilitation | Erika Ernst, | | | 2019 | | | DO [address] [place] | | | | | | [place] [address] | | | | | | [phone] | | | | | | | | | | | | Genesis Ayon OT | | +--------+ + + + + | 02/25/ | Office | Primary Care | Erika Ernst, | | | 2019 | Visit | | DO [address] [place] | | | | | | [place] [address] | | | | | | [phone] | | | | | | | [...] | | | | | [place] [address] | | | | | | [phone] | | | | | | | | +--------+ + + + + | 02/27/ | Appointment | Radiology | Dhara, | | | 2019 | | | DWAINE Ross [address] | | | | | | [address] [facility], | | | | | | [place] [address] | | | | | | [phone] | | | | | | | | +--------+ + + + + | 03/04/ | Appointment | Rehabilitation | Genesis Ayon OT | | | 2019 | | | | | +--------+ + + + + | 03/09/ | Office | Orthopedic Surgery | Jeffrey Gandhi, | | | 2019 | Visit | | [address] [facility] | | | | | | [place] [address] | | | | | | [phone] | | | | | | | [...] [place] | | | | | | [address] | | | | | | [phone] | | | | | | | [...] | | | | | [place] [address] | | | | | | [phone] | | | | | | | | | | | | Azul Yeboah, | | | | | | MD [address] | | | | | | [place] | | | | | | [place] [address] | | | | | | [phone] | | | | | | | [...] | | | | | | [place] [address] | | | | | | [phone] | | | | | | | | +--------+ + + + + documented as of this encounter Visit Diagnoses Not on filedocumented in this encounter"
--- OUTSIDE RECORDS SUMMARY | ~2020-02-18 | XMS | Encounter Summary ---
Demographics + + + | Address | [address] | | | [place] [address] | + + + | Home Phone [...] Providers + +------+ + | Care Animal Warden Name | Role | Phone | + +------+ + PCP | Unavailable | + +------+ + Encounter Details +--------+ + + + + | Date | Type | Department | Care Team | Description | +--------+ + + + + | 04/13/ | [facility] | Caro Zendejas | | | 2015 | Encounter | [facility] | [place], AUTOMOTIVE REFINISH TECHNICIAN [address] | | | | | [facility] [address] | [facility], [place] | | | | | [address] [facility], | [address] | | | | | [place] [address] | [phone] | | | | | [phone] | | | +--------+ + + + [...] | | | | | [place] [address] | | | | | | [phone] | | | | | | | | | | | | Julia Fisher, | | | | | | PT | | +--------+ + + + + | 02/18/ | Appointment | Rehabilitation | Erika Ernst, | | | 2019 | | | DO [address] [place] | | | | | | [place] [address] | | | | | | [phone] | | | | | | | | | | | | Genesis Ayon, OT | | +--------+ + + + + | 02/25/ | Office | Primary Care | Erika Ernst, | | | 2019 | Visit | | DO [address] [place] | | | | | | [place] [address] | | | | | | [phone] | | | | | | | [...] | | | | | [place] [address] | | | | | | [phone] | | | | | | | | +--------+ + + + + | 02/27/ | Appointment | Radiology | Dhara, | | | 2019 | | | DWAINE [address] | | | | | | [address] [facility], | | | | | | [place] [address] | | | | | | [phone] | | | | | | | | +--------+ + + + + | 03/04/ | Appointment | Rehabilitation | Genesis Ayon OT | | | 2019 | | | | | +--------+ + + + + | 03/09/ | Office | Orthopedic Surgery | Jeffrey Gandhi, | | | 2019 | Visit | | [address] | | | | | | [place] [address] | | | | | | [phone] | | | | | | | [...] [place] | | | | | | [address] | | | | | | [phone] | | | | | | | [...] | | | | | [place] [address] | | | | | | [phone] | | | | | | | | | | | | Azul Yeboah, | | | | | | MD [address] | | | | | | [place] | | | | | | [place] [address] | | | | | | [phone] | | | | | | | [...] | | | | | | [place] [address] | | | | | | [phone] | | | | | | | | +--------+ + + + + documented as of this encounter Visit Diagnoses Not on filedocumented in this encounter"
--- OUTSIDE RECORDS SUMMARY | ~2020-02-18 | XMS | Encounter Summary ---
Demographics + + + | Address | [address] | | | [place] [address] | + + + | Home Phone [...] Providers + +------+ + | Care Crystalizer Operator Name | Role | Phone | [...] | | [place], [place] | [place] [address] | | | | | [address] | [phone] | | | | | [phone] | | | +--------+ + + + [...] | | | | | [place] [address] | | | | | | [phone] | | | | | | | | | | | | Julia Fisher, | | | | | | PT | | +--------+ + + + + | 02/18/ | Appointment | Rehabilitation | Erika Ernst, | | | 2019 | | | DO [address] [place] | | | | | | [place] [address] | | | | | | [phone] | | | | | | | | | | | | Genesis Ayon OT | | +--------+ + + + + | 02/25/ | Office | Primary Care | KleverErika, | | | 2019 | Visit | | DO [address] [place] [address] ST [place] | | | | | | [place] [address] | | | | | | [phone] | | | | | | | [...] | | | | | [place] [address] | | | | | | [phone] | | | | | | | | +--------+ + + + + | 02/27/ | Appointment | Radiology | Dhara, | | | 2019 | | | DWAINE Ross [address] | | | | | [address] [place], | | | | | | [place] [address] | | | | | | [phone] | | | | | | | | +--------+ + + + + | 03/04/ | Appointment | Rehabilitation | Genesis Ayon OT | | | 2019 | | | | | +--------+ + + + + | 03/09/ | Office | Orthopedic Surgery | Jeffrey Gandhi, | | | 2019 | Visit | | [address] [facility] | | | | | | [place] [address] | | | | | | [phone] | | | | | | | [...] [place] | | | | | | [address] | | | | | | [phone] | | | | | | | [...] | | | | | [place] [address] | | | | | | [phone] | | | | | | | | | | | | Azul Yeboah, | | | | | | MD [address] | | | | | | [place] | | | | | | [place] [address] | | | | | | [phone] | | | | | | | [...] | | | | | | [place] [address] | | | | | | [phone] | | | | | | | [...]
--- OUTSIDE RECORDS SUMMARY | ~2020-02-18 | XMS | Encounter Summary ---
Demographics + + + | Address | [address] | | | [place] [address] | + + + | Home Phone [...] Providers + +------+ + | Care Lead Javascript Engineer Name | Role | Phone | [...] | 2019 | | HOSPITAL EM[facility]Y | VALUE ANALYSIS COORDINATOR | | | | | CENTER [address] | | | | | | [place] | | | | | | [address] | | | | | | [phone] | | | +--------+ + + + [...] | | | | | [place] [address] | | | | | | [phone] | | | | | | | | | | | | Julia Fisher, | | | | | | PT | | +--------+ + + + + | 02/18/ | Appointment | Rehabilitation | Erika Ernst, | | | 2019 | | | DO [address] [place] | | | | | | [place] [address] | | | | | | [phone] | | | | | | | | | | | | [facility] | | +--------+ + + + + | 02/25/ | Office | Primary Care | Erika Ernst, | | | 2019 | Visit | | DO [address] | | | | | | [place] [address] | | | | | | [phone] | | | | | | | [...] | | | | | [place] [address] | | | | | | [phone] | | | | | | | | +--------+ + + + + | 02/27/ | Appointment | Radiology | Dhara, | | | 2019 | | | DWAINE [address] | | | | | | [address] [facility] [place], | | | | | | [place] [address] | | | | | | [phone] | | | | | | | [...] | | | | | [place] [address] | | | | | | [phone] | | | | | | | [...] [place] | | | | | | [address] | | | | | | [phone] | | | | | | | [...] | | | | | [place] [address] | | | | | | [phone] | | | | | | | | | | | | Azul Yeboah, | | | | | | MD [address] | | | | | | [address] [place] | | | | | | [place] [address] | | | | | | [phone] | | | | | | | [...] | | | | | | [place] [address] | | | | | | [phone] | | | | | | | | +--------+ + + + + documented as of this encounter Visit Diagnoses Not on filedocumented in this encounter"
--- OUTSIDE RECORDS SUMMARY | ~2020-02-18 | XMS | Encounter Summary ---
Demographics + + + | Address | [address] | | | [place] [address] | + + + | Home Phone [...] Team Providers + +------+ + | Care Microbiology Supervisor Name | Role | Phone | [...] | | somatization | [place], | [place] | | | | | | [place] [address] | Health and | | | | | Depression, | Phone: | Service | | | | | unspecified | [phone] | | | | | | depression | Fax: | | | | | | type | [phone] | | + + + + + [...] | [facility] [address] | [place] [address] | (Primary Dx); | | | | [address] [place], | [phone] | Depression, | | | | [place] [address] | | unspecified | | | | [phone] | | depression type | +--------+ + [...] | | | | | [place] [address] | | | | | | [phone] | | | | | | | | | | | | Julia Fisher, | | | | | | PT | | +--------+ + + + + | 02/18/ | Appointment | Rehabilitation | Erika Ernst, | | | 2019 | | | DO [address] | | | | | | [place] [address] | | | | | | [phone] | | | | | | | | | | | | Genesis Ayon, SUSAN | | +--------+ + + + + | 02/25/ | Office | Primary Care | Erika Ernst, | | | 2019 | Visit | | DO [address] [place] [address] | | | | | | [place] [address] | | | | | | [phone] | | | | | | | [...] | | | | | [place] [address] | | | | | | [phone] | | | | | | | | +--------+ + + + + | 02/27/ | Appointment | Radiology | Dhara, | | | 2019 | | | [address] | | | | | | [address] [place], | | | | | | [place] [address] | | | | | | [phone] | | | | | | | [...] | | | | | [place] [address] | | | | | | [phone] | | | | | | | [...] [place] | | | | | | [address] | | | | | | [phone] | | | | | | | [...] [address] | | | | | | [phone] | | | | | | | | | | | | Azul Yeboah, | | | | | | [address] | | | | | | [address] [place] | | | | | | [place] [address] | | | | | | [phone] | | | | | | | [...] | | | | | | [place] [address] | | | | | | [phone] | | | | | | | [...]
--- OUTSIDE RECORDS SUMMARY | ~2020-02-18 | XMS | Encounter Summary ---
Demographics + + + | Address | [address] | | | [place] [address] | + + + | Home Phone [...] Team Providers + +------+ + | Care Drum Drier Operator Name | Role | Phone [...] Refill | | 2019 | | [facility] | DO [address] | | | | | [facility] [address] | [place] [address] | | | | | [address] [place], | [phone] | | | | | [place] [address] | | | | | | [phone] | | | +--------+--------+ + + + [...] | | | | | [place] [address] | | | | | | [phone] | | | | | | | | | | | | Julia Fisher, | | | | | | PT | | +--------+ + + + + | 02/18/ | Appointment | Rehabilitation | Erika Ernst, | | | 2019 | | | DO [address] | | | | | | [place] [address] | | | | | | [phone] | | | | | | | | | | | | Genesis Ayon OT | | +--------+ + + + + | 02/25/ | Office | Primary Care | Erika Ernst, | | | 2019 | Visit | | DO [address] | | | | | | [place] [address] | | | | | | [phone] | | | | | | | [...] | | | | | [place] [address] | | | | | | [phone] | | | | | | | | +--------+ + + + + | 02/27/ | Appointment | Radiology | Dhara, | | | 2019 | | | [address] | | | | | | 4TH [facility], | | | | | | [place] [address] | | | | | | [phone] | | | | | | | [...] [place] | | | | | | [place] [address] | | | | | | [phone] | | | | | | | [...] [place] | | | | | | [address] | | | | | | [phone] | | | | | | | [...] | | | | | [place] [address] | | | | | | [phone] | | | | | | | | | | | | Azul Yeboah, | | | | | | MD [address] | | | | | | [place] | | | | | | [place] [address] | | | | | | [phone] | | | | | | | [...] | | | | | | [place] [address] | | | | | | [phone] | | | | | | | | +--------+ + + + + documented as of this encounter Visit Diagnoses Not on filedocumented in this encounter"
--- OUTSIDE RECORDS SUMMARY | ~2020-02-18 | XMS | Encounter Summary ---
Demographics + + + | Address | [address] | | | [place] [address] | + + + | Home Phone [...] Team Providers + +------+ + | Care Custom Van Converter Name | Role | Phone | + [...] [place] | | | | | | [address] | | | | | | [phone] | | | +--------+ + + + [...] | | | | | [place] [address] | | | | | | [phone] | | | | | | | | | | | | Julia Fisher, | | | | | | PT | | +--------+ + + + + | 02/18/ | Appointment | Rehabilitation | Erika Ernst, | | | 2019 | | | DO [address] [place] | | | | | | [place] [address] | | | | | | [phone] | | | | | | | | | | | | Genesis Ayon OT | | +--------+ + + + + | 02/25/ | Office | Primary Care | Erika Ernst, | | | 2019 | Visit | | DO [address] | | | | | | [place] [address] | | | | | | [phone] | | | | | | | [...] | | | | | [place] [address] | | | | | | [phone] | | | | | | | | +--------+ + + + + | 02/27/ | Appointment | Radiology | Dhara, | | | 2019 | | | [address] | | | | | | 4TH [facility], | | | | | | [place] [address] | | | | | | [phone] | | | | | | | | +--------+ + + + + | 03/04/ | Appointment | Rehabilitation | Genesis Ayon OT | | | 2019 | | | | | +--------+ + + + + | 03/09/ | Office | Orthopedic Surgery | Oksana, Jeffrey G, | | | 2019 | Visit | | [address] [facility] | | | | | | [place] [address] | | | | | | [phone] | | | | | | | [...] [place] | | | | | | [address] | | | | | | [phone] | | | | | | | [...] | | | | | [place] [address] | | | | | | [phone] | | | | | | | | | | | | Azul Yeboah, | | | | | | MD [address] | | | | | | [place] | | | | | | [place] [address] | | | | | | [phone] | | | | | | | [...] | | | | | | [place] [address] | | | | | | [phone] | | | | | | | | +--------+ + + + + documented as of this encounter Visit Diagnoses Not on filedocumented in this encounter"
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
--- OUTSIDE RECORDS SUMMARY | ~2020-02-18 | XMS | Encounter Summary ---
Demographics + + + | Address | [address] | | | [place] [address] | + + + | Home Phone [...] Team Providers + +------+ + | Care Hub Lead Name | Role | Phone | + +------+ + PCP | Unavailable | + +------+ + Encounter Details +--------+ + + + + | Date | Type | Department | Care Team | Description | +--------+ + + + + | 09/08/ | [facility] | Jessica Hoang, | | | 2013 | Encounter | [facility] | [address] | | | | | CENTER [address] | [place] | | | | | [place] | [address] | | | | | [address] | | | | | | [phone] | | | +--------+ + + + [...] | | | | | [place] [address] | | | | | | [phone] | | | | | | | | | | | | Julia Fisher, | | | | | | PT | | +--------+ + + + + | 02/18/ | Appointment | Rehabilitation | Erika Ernst, | | | 2019 | | | DO [address] | | | | | | [place] [address] | | | | | | [phone] | | | | | | | | | | | | Genesis Ayon, SUSAN | | +--------+ + + + + | 02/25/ | Office | Primary Care | Erika Ernst, | | | 2019 | Visit | | DO [address] | | | | | | [place] [address] | | | | | | [phone] | | | | | | | [...] | | | | | [place] [address] | | | | | | [phone] | | | | | | | | +--------+ + + + + | 02/27/ | Appointment | Radiology | Dhara, | | | 2019 | | | [address] | | | | | | 4TH [facility], | | | | | | [place] [address] | | | | | | [phone] | | | | | | | | +--------+ + + + + | 03/04/ | Appointment | Rehabilitation | Genesis Ayon OT | | | 2019 | | | | | +--------+ + + + + | 03/09/ | Office | Orthopedic Surgery | Jeffrey Gandhi, | | | 2019 | Visit | | [address] [facility] | | | | | | [place] [address] | | | | | | [phone] | | | | | | | [...] [place] | | | | | | [address] | | | | | | [phone] | | | | | | | [...] | | | | | [place] [address] | | | | | | [phone] | | | | | | | | | | | | Azul Yeboah, | | | | | | MD [address] | | | | | | [place] | | | | | | [place] [address] | | | | | | [phone] | | | | | | | [...] | | | | | | [place] [address] | | | | | | [phone] | | | | | | | | +--------+ + + + + documented as of this encounter Visit Diagnoses Not on filedocumented in this encounter"
--- OUTSIDE RECORDS SUMMARY | ~2020-02-18 | XMS | Encounter Summary ---
Demographics + + + | Address | [address] | | | [place] [address] | + + + | Home Phone [...] Team Providers + +------+ + | Care Guide Visitor Name | Role | Phone | + [...] | | | | [place], [place] | [address] | (Primary Dx); | | | | [address] | [phone] | Non-seasonal | | | | [phone] | | allergic rhinitis | | | [...] | | | | | [place] [address] | | | | | | [phone] | | | | | | | | | | | | Julia Fisher, | | | | | | PT | | +--------+ + + + + | 02/18/ | Appointment | Rehabilitation | Erika Ernst, | | | 2019 | | | DO [address] | | | | | | [place] [address] | | | | | | [phone] | | | | | | | | | | | | Genesis Ayon OT | | +--------+ + + + + | 02/25/ | Office | Primary Care | Erika Ernst, | | | 2019 | Visit | | DO [address] | | | | | | [place] [address] | | | | | | [phone] | | | | | | | [...] | | | | | [place] [address] | | | | | | [phone] | | | | | | | | +--------+ + + + + | 02/27/ | Appointment | Radiology | Dhara, | | | 2019 | | | [address] | | | | | | [facility] [facility] | | | | | | [place] [address] | | | | | | [phone] | | | | | | | [...] [place] | | | | | | [place] [address] | | | | | | [phone] | | | | | | | [...] [place] | | | | | | [address] | | | | | | [phone] | | | | | | | [...] | | | | | [place] [address] | | | | | | [phone] | | | | | | | | | | | | Azul Yeboah, | | | | | | MD [address] | | | | | | [place] | | | | | | [place] [address] | | | | | | [phone] | | | | | | | [...] | | | | | | [place] [address] | | | | | | [phone] | | | | | | | [...]
--- OUTSIDE RECORDS SUMMARY | ~2020-02-18 | XMS | Encounter Summary ---
Demographics + + + | Address | [address] | | | [place] [address] | + + + | Home Phone [...] Providers + +------+ + | Care Senior Accountant Analyst Name | Role | Phone | + +------+ + PCP | Unavailable | + +------+ + Encounter Details +--------+ + + + + | Date | Type | Department | Care Team | Description | +--------+ + + + + | 04/26/ | [facility] | Spenser Roberts NP | | | 2015 | Encounter | [facility] | [address], | | | | | [facility]ICAL [facility] [address] | [place] [address] | | | | | [address] [facility], | [phone] | | | | | [place] [address] | | | | | | [phone] | | | +--------+ + + + [...] | | | | | [place] [address] | | | | | | [phone] | | | | | | | [...] [address] | | | | | | [phone] | | | | | | | | | | | | Genesis Ayon OT | | +--------+ + + + + | 02/25/ | Office | Primary Care | Erika Ernst, | | | 2019 | Visit | | DO [address] | | | | | | [place] [address] | | | | | | [phone] | | | | | | | [...] | | | | | [place] [address] | | | | | | [phone] | | | | | | | | +--------+ + + + + | 02/27/ | Appointment | Radiology | Dhara, | | | 2019 | | | [address] | | | | | | 4TH [facility], | | | | | | [place] [address] | | | | | | [phone] | | | | | | | | +--------+ + + + + | 03/04/ | Appointment | Rehabilitation | Genesis Ayon OT | | | 2019 | | | | | +--------+ + + + + | 03/09/ | Office | Orthopedic Surgery | Jeffrey Gandhi, | | 2019 | Visit | | [address] | | | | | | [place] [address] | | | | | | [phone] | | | | | | | [...] [place] | | | | | | [address] | | | | | | [phone] | | | | | | | [...] | | | | | [place] [address] | | | | | | [phone] | | | | | | | | | | | | Azul Yeboah, | | | | | | MD [address] | | | | | | [place] | | | | | | [place] [address] | | | | | | [phone] | | | | | | | [...] | | | | | | [place] [address] | | | | | | [phone] | | | | | | | | +--------+ + + + + documented as of this encounter Visit Diagnoses Not on filedocumented in this encounter"
--- OUTSIDE RECORDS SUMMARY | ~2020-02-18 | XMS | Encounter Summary ---
Demographics + + + | Address | [address] | | | [place] [address] | + + + | Home Phone [...] Team Providers + +------+ + | Care Milieu Coordinator Name | Role | Phone | [...] [address] | [place] [address] | | | | | [place], [place] | [phone] | | | | | [address] | | | | | | [phone] | | | +--------+ + + + [...] | 11/26/19 | | | (VITAMIN D3) 29151 | mouth Once a week | tablet [...] | | | | | [place] [address] | | | | | | [phone] | | | | | | | [...] [address] | | | | | | [phone] | | | | | | | | | | | | Genesis Ayon OT | | +--------+ + + + + | 02/25/ | Office | Primary Care | Erika Ernst, | | | 2019 | Visit | | DO [address] | | | | | | [place] [address] | | | | | | [phone] | | | | | | | [...] | | | | | [place] [address] | | | | | | [phone] | | | | | | | | +--------+ + + + + | 02/27/ | Appointment | Radiology | Dhara, | | | 2019 | | | [address] | | | | [address] [place], | | | | | | [place] [address] | | | | | | [phone] | | | | | | | | +--------+ + + + + | 03/04/ | Appointment | Rehabilitation | Genesis Ayon OT | | | 2019 | | | | | +--------+ + + + + | 03/09/ | Office | Orthopedic Surgery | Jeffrey Gandhi, | | | 2019 | Visit | | [address] | | | | | | [place] [address] | | | | | | [phone] | | | | | | | [...] [place] | | | | | | [address] | | | | | | [phone] | | | | | | | [...] | | | | | [place] [address] | | | | | | [phone] | | | | | | | | | | | | Azul Yeboah, | | | | | | MD [address] | | | | | | [place] | | | | | | [place] [address] | | | | | | [phone] | | | | | | | [...] | | | | | | [place] [address] | | | | | | [phone] | | | | | | | [...]
--- OUTSIDE RECORDS SUMMARY | ~2020-02-18 | XMS | Encounter Summary ---
Demographics + + + | Address | [address] | | | [place] [address] | + + + | Home Phone [...] Team Providers + +------+ + | Care Cytology Manager Name | Role | Phone | [...] + + | 12/12/ | Telephone | [facility] | Usha Rodriguez | Results, Imaging | | 2020 | | [facility] | MD Precious [address] | | | | | [address] [place] | | | | | [address] [place] | [place] [address] | | | | | [place], [place] | [phone] | | | | | [address] | | | | | | [phone] | | | +--------+ + + + [...] | | | | | [place] [address] | | | | | | [phone] | | | | | | | | | | | | Julia Fisher, | | | | | | PT | | +--------+ + + + + | 02/18/ | Appointment | Rehabilitation | Erika Ernst, | | | 2019 | | | DO [address] [place] | | | | | | [place] [address] | | | | | | [phone] | | | | | | | | | | | | Genesis Ayon OT | | +--------+ + + + + | 02/25/ | Office | Primary Care | Erika Ernst, | | | 2019 | Visit | | DO [address] [place] | | | | | | [place] [address] | | | | | | [phone] | | | | | | | [...] | | | | | [place] [address] | | | | | | [phone] | | | | | | | | +--------+ + + + + | 02/27/ | Appointment | Radiology | Dhara, | | | 2019 | | | [address] | | | | | | [address]TH [facility], | | | | | | [place] [address] | | | | | | [phone] | | | | | | | | +--------+ + + + + | 03/04/ | Appointment | Rehabilitation | Genesis Ayon OT | | | 2019 | | | | | +--------+ + + + + | 03/09/ | Office | Orthopedic Surgery | Jeffrey Gandhi, | | | 2019 | Visit | | [address] | | | | | | [place] [address] | | | | | | [phone] | | | | | | | [...] [place] | | | | | | [address] | | | | | | [phone] | | | | | | | [...] | | | | | [place] [address] | | | | | | [phone] | | | | | | | | | | | | Azul Yeboah, | | | | | | MD [address] | | | | | | [place] | | | | | | [place] [address] | | | | | | [phone] | | | | | | | [...] | | | | | | [place] [address] | | | | | | [phone] | | | | | | | | +--------+ + + + + documented as of this encounter Visit Diagnoses Not on filedocumented in this encounter"
--- OUTSIDE RECORDS SUMMARY | ~2020-02-18 | XMS | Encounter Summary ---
Demographics + + + | Address | [address] | | | [place] [address] | + + + | Home Phone [...] Providers + +------+ + | Care Drafter Castings Name | Role | Phone | + [...] [place] | | | | | | [address] | | | | | | [phone] | | | +--------+ + + + [...] | | | | | [place] [address] | | | | | | [phone] | | | | | | | | | | | | Julia Fisher, | | | | | | PT | | +--------+ + + + + | 02/18/ | Appointment | Rehabilitation | Erika Ernst, | | | 2019 | | | DO [address] [place] | | | | | | [place] [address] | | | | | | [phone] | | | | | | | | | | | | [facility] | | +--------+ + + + + | 02/25/ | Office | Primary Care | Erika Ernst, | | | 2019 | Visit | | DO [address] [place] | | | | | | [place] [address] | | | | | | [phone] | | | | | | | [...] | | | | | [place] [address] | | | | | | [phone] | | | | | | | | +--------+ + + + + | 02/27/ | Appointment | Radiology | Dhara, | | | 2019 | | | [address] | | | | | | [address] [facility], | | | | | | [place] [address] | | | | | | [phone] | | | | | | | [...] [place] | | | | | | [place] [address] | | | | | | [phone] | | | | | | | [...] [place] | | | | | | [address] | | | | | | [phone] | | | | | | | [...] [address] | | | | | | [phone] | | | | | | | | | | | | Azul Yeboah, | | | | | | MD [address] | | | | | | [place] | | | | | | [place] [address] | | | | | | [phone] | | | | | | | [...] | | | | | | [place] [address] | | | | | | [phone] | | | | | | | | +--------+ + + + + documented as of this encounter Visit Diagnoses Not on filedocumented in this encounter"
--- OUTSIDE RECORDS SUMMARY | ~2020-02-18 | XMS | Encounter Summary ---
Demographics + + + | Address | [address] | | | [place] [address] | + + + | Home Phone [...] Providers + +------+ + | Care Building Architect Name | Role | Phone | [...] | [address] | | | | | [address] | | | | | | [phone] | | | +--------+ + + + [...] | | | | | [place], [place] [address] | | | | | | [phone] | | | | | | | | | | | | Julia Fisher, | | | | | | PT | | +--------+ + + + + | 02/18/ | Appointment | Rehabilitation | Erika Ernst, | | | 2019 | | | DO [address] | | | | | | [place] [address] | | | | | | [phone] | | | | | | | | | | | | [facility] OT | | +--------+ + + + + | 02/25/ | Office | Primary Care | Erika Ernst, | | | 2019 | Visit | | DO [address] | | | | | | [place] [address] | | | | | | [phone] | | | | | | | [...] | | | | | [place] [address] | | | | | | [phone] | | | | | | | | +--------+ + + + + | 02/27/ | Appointment | Radiology | Dhara, | | | 2019 | | | [address] | | | | | | 4TH [facility], | | | | | | [place] [address] | | | | | | [phone] | | | | | | | | +--------+ + + + + | 03/04/ | Appointment | Rehabilitation | Genesis Ayon OT | | | 2019 | | | | | +--------+ + + + + | 03/09/ | Office | Orthopedic Surgery | Jeffrey Gandhi, | | | 2019 | Visit | | MD [address] [facility] | | | | | | [place] [address] | | | | | | [phone] | | | | | | | [...] [place] | | | | | | [address] | | | | | | [phone] | | | | | | | [...] | | | | | [place] [address] | | | | | | [phone] | | | | | | | | | | | | Azul Yeboah, | | | | | | MD [address] | | | | | | [place] | | | | | | [place] [address] | | | | | | [phone] | | | | | | | [...] | | | | | | [place] [address] | | | | | | [phone] | | | | | | | | +--------+ + + + + documented as of this encounter Visit Diagnoses Not on filedocumented in this encounter"
--- OUTSIDE RECORDS SUMMARY | ~2020-02-18 | XMS | Encounter Summary ---
Demographics + + + | Address | [address] | | | [place] [address] | + + + | Home Phone [...] Providers + +------+ + | Care Train Crew Member Name | Role | Phone [...] | [facility] | [place] [address] | | | | [address] [place], | [phone] | | | | | [place] [address] | | | | | | [phone] | | | +--------+ + + + [...] | | | | | [place] [address] | | | | | | [phone] | | | | | | | | | | | | Julia Fisher, | | | | | | PT | | +--------+ + + + + | 02/18/ | Appointment | Rehabilitation | Erika Ernst, | | | 2019 | | | DO [address] | | | | | | [place] [address] | | | | | | [phone] | | | | | | | | | | | | [facility] OT | | +--------+ + + + + | 02/25/ | Office | Primary Care | Erika Ernst, | | | 2019 | Visit | | DO [address] | | | | | | [place] [address] | | | | | | [phone] | | | | | | | [...] | | | | | | [place] [address] | | | | | | [phone] | | | | | | | | +--------+ + + + + | 02/27/ | Appointment | Radiology | Dhara, | | | 2019 | | | [address] | | | | | | 4TH [facility], | | | | | | [place] [address] | | | | | | [phone] | | | | | | | [...] | | | | | | [place] [address] | | | | | | [phone] | | | | | | | [...] [place] | | | | | | [address] | | | | | | [phone] | | | | | | | [...] | | | | | [place] [address] | | | | | | [phone] | | | | | | | | | | | | Azul Yeboah, | | | | | | [address] | | | | | | [place] | | | | | | [place] [address] | | | | | | [phone] | | | | | | | [...] | | | | | | [place] [address] | | | | | | [phone] | | | | | | | | +--------+ + + + + documented as of this encounter Visit Diagnoses Not on filedocumented in this encounter"
--- OUTSIDE RECORDS SUMMARY | ~2020-02-18 | XMS | Encounter Summary ---
Demographics + + + | Address | [address] | | | [place] [address] | + + + | Home Phone [...] Providers + +------+ + | Care Technical Manager Name | Role | Phone | [...] Results | | 2018 | | [facility] | NURSE CHEMICAL DEPENDENCY | | | | | [facility] [address] | | | | | | 4TH [facility] [place], | | | | | | [place] [address] | | | | | | [phone] | | | +--------+ + + + [...] | | 2019 | | | DO [facility] | | | | | | [place] [address] | | | | | | [phone] | | | | | | | | | | | | Julia Fisher, | | | | | | PT | | +--------+ + + + + | 05/20/ | Appointment | Rehabilitation | Erika Ernst, | | | 2019 | | | DO [address] | | | | | | [place] [address] | | | | | | [phone] | | | | | | | | | | | | [facility] OT | | +--------+ + + + + | 02/25/ | Office | Primary Care | Erika Ernst, | | | 2019 | Visit | | DO [address] | | | | | | [place] [address] | | | | | | [phone] | | | | | | | [...] | | | | | [place] [address] | | | | | | [phone] | | | | | | | | +--------+ + + + + | 02/27/ | Appointment | Radiology | Dhara, | | | 2019 | | | [address] | | | | | | 4TH [facility] [place], | | | | | | [place] [address] | | | | | | [phone] | | | | | | | [...] | | | | | [place] [address] | | | | | | [phone] | | | | | | | [...] [place] | | | | | | [address] | | | | | | [phone] | | | | | | | [...] | | | | | [place] [address] | | | | | | [phone] | | | | | | | | | | | | Azul Yeboah, | | | | | | MD [address] | | | | | | [place] | | | | | | [place] [address] | | | | | | [phone] | | | | | | | [...] | | | | | | [place] [address] | | | | | | [phone] | | | | | | | | +--------+ + + + + documented as of this encounter Visit Diagnoses Not on filedocumented in this encounter"
--- OUTSIDE RECORDS SUMMARY | ~2020-02-18 | XMS | Encounter Summary ---
Demographics + + + | Address | [address] | | | [place] [address] | + + + | Home Phone [...] Providers + +------+ + | Care Hand Packer Name | Role | Phone | + +------+ + PCP | Unavailable | + +------+ + Encounter Details +--------+ + + + + | Date | Type | Department | Care Team | Description | +--------+ + + + + | 12/10/ | [facility] | Caro Zendejas | | | 2013 | Encounter | [facility] | Vlae, SEO MANAGER [address] | | | | | [facility] [address] | [facility], [place] | | | | | 4TH [facility], | [address] | | | | | [place] [address] | [phone] | | | | | [phone] | | | +--------+ + + + [...] [address] | | | | | | [phone] | | | | | | | | | | | | Julia Fisher, | | | | | | PT | | +--------+ + + + + | 02/18/ | Appointment | Rehabilitation | Erika Ernst, | | | 2019 | | | DO [address] | | | | | | [place] [address] | | | | | | [phone] | | | | | | | | | | | | Genesis Ayon, OT | | +--------+ + + + + | 02/25/ | Office | Primary Care | Erika Ernst, | | | 2019 | Visit | | DO [address] | | | | | | [place] [address] | | | | | | [phone] | | | | | | | [...] | | | | | [place] [address] | | | | | | [phone] | | | | | | | | +--------+ + + + + | 02/27/ | Appointment | Radiology | Dhara, | | | 2019 | | | [address] | | | | | | 4TH [facility], | | | | | | [place] [address] | | | | | | [phone] | | | | | | | [...] | | | | | | [place] [address] | | | | | | [phone] | | | | | | | [...] [place] | | | | | | [address] | | | | | | [phone] | | | | | | | [...] | | | | | [place] [address] | | | | | | [phone] | | | | | | | | | | | | Azul Yeboah, | | | | | | MD [address] | | | | | | [place] | | | | | | [place] [address] | | | | | | [phone] | | | | | | | [...] | | | | | | [place] [address] | | | | | | [phone] | | | | | | | | +--------+ + + + + documented as of this encounter Visit Diagnoses Not on filedocumented in this encounter"
--- OUTSIDE RECORDS SUMMARY | ~2020-02-18 | XMS | Encounter Summary ---
Demographics + + + | Address | [address] | | | [place] [address] | + + + | Home Phone [...] Providers + +------+ + | Care Educational Fundraising Director Name | Role | Phone | [...] | [place], [place] | [place] [address] | | | | | [address] | [phone] | | | | | [phone] | | | +--------+ + + + [...] | | | | | [place] [address] | | | | | | [phone] | | | | | | | | | | | | Julia Fisher, | | | | | | PT | | +--------+ + + + + | 02/18/ | Appointment | Rehabilitation | Erika Ernst, | | | 2019 | | | DO [address] | | | | | | [place] [address] | | | | | | [phone] | | | | | | | | | | | | [facility] OT | | +--------+ + + + + | 02/25/ | Office | Primary Care | Erika Ernst, | | | 2019 | Visit | | DO [address] | | | | | | [place] [address] | | | | | | [phone] | | | | | | | [...] | | | | | [place] [address] | | | | | | [phone] | | | | | | | | +--------+ + + + + | 02/27/ | Appointment | Radiology | Dhara, | | | 2019 | | | [address] | | | | | | 4TH [facility], | | | | | | [place] [address] | | | | | | [phone] | | | | | | | [...] [place] | | | | | | [place] [address] | | | | | | [phone] | | | | | | | [...] [place] | | | | | | [address] | | | | | | [phone] | | | | | | | [...] | | | | | [place] [address] | | | | | | [phone] | | | | | | | | | | | | Azul Yeboah, | | | | | | MD [address] | | | | | | [place] | | | | | | [place] [address] | | | | | | [phone] | | | | | | | [...] | | | | | | [place] [address] | | | | | | [phone] | | | | | | | | +--------+ + + + + documented as of this encounter Visit Diagnoses Not on filedocumented in this encounter"
--- OUTSIDE RECORDS SUMMARY | ~2020-02-18 | XMS | Encounter Summary ---
Demographics + + + | Address | [address] | | | [place] [address] | + + + | Home Phone [...] Team Providers + +------+ + | Care Bankruptcy Law Specialist Name | Role | Phone | [...] Fever | | 2020 | | [facility] | DO [address] | | | | | MEDICAL CL[facility] [address] | [place] [address] | | | | | [address] [place], | [phone] | | | | | [place] [address] | | | | | | [phone] | | | +--------+ + + + [...] | | | | | [place] [address] | | | | | | [phone] | | | | | | | | | | | | Julia Fisher, | | | | | | PT | | +--------+ + + + + | 02/18/ | Appointment | Rehabilitation | Erika Ernst, | | | 2019 | | | DO [address] | | | | | | [place] [address] | | | | | | [phone] | | | | | | | | | | | | [facility] OT | | +--------+ + + + + | 02/25/ | Office | Primary Care | Erika Ernst, | | | 2019 | Visit | | DO [address] | | | | | | [place] [address] | | | | | | [phone] | | | | | | | [...] | | | | | [place] [address] | | | | | | [phone] | | | | | | | | +--------+ + + + + | 02/27/ | Appointment | Radiology | Dhara, | | | 2019 | | | [address] | | | | | | [facility]TH [facility], | | | | | | [place] [address] | | | | | | [phone] | | | | | | | [...] [place] | | | | | | [place] [address] | | | | | | [phone] | | | | | | | [...] [place] | | | | | | [address] | | | | | | [phone] | | | | | | | [...] | | | | | [place] [address] | | | | | | [phone] | | | | | | | | | | | | Azul Yeboah, | | | | | | MD [address] | | | | | | [place] | | | | | | [place] [address] | | | | | | [phone] | | | | | | | [...] | | | | | | [place] [address] | | | | | | [phone] | | | | | | | | +--------+ + + + + documented as of this encounter Visit Diagnoses Not on filedocumented in this encounter"
--- OUTSIDE RECORDS SUMMARY | ~2020-02-18 | XMS | Encounter Summary ---
Demographics + + + | Address | [address] | | | [place] [address] | + + + | Home Phone [...] Providers + +------+ + | Care Hot Dog Vender Name | Role | Phone | + [...] | | | | encounter | [place] [address] | [place], | | | | | | Phone: | [place] | | | | | | [phone] | [address] | | | | | | Fax: | Phone: | | | | | | [phone] | [phone] | | | | | | | Fax: | | | | | | | [phone] | +--------+ + + + + + [...] | MEDICAL [facility] [address] | [place] [address] | encounter (Primary | | | | [address] [place], | [phone] | Dx) | | | | [place] [address] | | | | | | [phone] | | | +--------+ + + + [...] | | 2019 | | | DO [address] [place] [address] | | | | | | [place] [address] | | | | | | [phone] | | | | | | | | | | | | Julia Fisher, | | | | | | PT | | +--------+ + + + + | 02/18/ | Appointment | Rehabilitation | Erika Ernst, | | | 2019 | | | DO [address] | | | | | | [place] [address] | | | | | | [phone] | | | | | | | | | | | | [facility] OT | | +--------+ + + + + | 02/25/ | Office | Primary Care | Erika Ernst, | | | 2019 | Visit | | DO [address] [place] | | | | | | [place] [address] | | | | | | [phone] | | | | | | | [...] | | | | | [place] [address] | | | | | | [phone] | | | | | | | | +--------+ + + + + | 02/27/ | Appointment | Radiology | Dhara, | | | 2019 | | | [address] | | | | | | [address] [place], | | | | | | [place] [address] | | | | | | [phone] | | | | | | | [...] | | | | [place] [address] | | | | | | [phone] | | | | | | | [...] [place] | | | | | | [address] | | | | | | [phone] | | | | | | | [...] | | | | | [place] [address] | | | | | | [phone] | | | | | | | | | | | | Azul Yeboah, | | | | | | MD [address] | | | | | | [place] | | | | | | [place] [address] | | | | | | [phone] | | | | | | | [...] [address] | | | | | | [phone] | | | | | | | [...]
--- OUTSIDE RECORDS SUMMARY | ~2020-02-18 | XMS | Encounter Summary ---
Demographics + + + | Address | [address] | | | [place] [address] | + + + | Home Phone [...] Providers + +------+ + | Care Fire Sprinkler Service Technician Name | Role | Phone [...] | | 2019 | | [facility] | DO [address] | | | | | MEDICAL CL[facility] [address] | [facility] [place] [address] | | | | | [address] [place], | [phone] | | | | | [place] [address] | | | | | | [phone] | | | +--------+ + + + [...] | | | | | [place] [address] | | | | | | [phone] | | | | | | | | | | | | Julia Fisher, | | | | | | PT | | +--------+ + + + + | 02/18/ | Appointment | Rehabilitation | Erika Ernst, | | | 2019 | | | DO [address] | | | | | | [place] [address] | | | | | | [phone] | | | | | | | | | | | | Genesis Ayon, OT | | +--------+ + + + + | 02/25/ | Office | Primary Care | Erika Ernst, | | | 2019 | Visit | | DO [address] | | | | | | [place] [address] | | | | | | [phone] | | | | | | | [...] | | | | | [place] [address] | | | | | | [phone] | | | | | | | | +--------+ + + + + | 02/27/ | Appointment | Radiology | Dhara, | | | 2019 | | | [address] | | | | | | 4TH [facility], | | | | | | [place] [address] | | | | | | [phone] | | | | | | | | +--------+ + + + + | 03/04/ | Appointment | Rehabilitation | Genesis Ayon OT | | | 2019 | | | | | +--------+ + + + + | 03/09/ | Office | Orthopedic Surgery | Jeffrey Gandhi, | | 2019 | Visit | | [address] | | | | | | [place] [address] | | | | | | [phone] | | | | | | | [...] [place] | | | | | | [address] | | | | | | [phone] | | | | | | | [...] | | | | | [place] [address] | | | | | | [phone] | | | | | | | | | | | | Azul Yeboah, | | | | | | MD [address] | | | | | | [place] | | | | | | [place] [address] | | | | | | [phone] | | | | | | | [...] | | | | | | [place] [address] | | | | | | [phone] | | | | | | | | +--------+ + + + + documented as of this encounter Visit Diagnoses Not on filedocumented in this encounter"
--- OUTSIDE RECORDS SUMMARY | ~2020-02-18 | XMS | Encounter Summary ---
Demographics + + + | Address | [address] | | | [place] [address] | + + + | Home Phone [...] Team Providers + +------+ + | Care Av Specialist Name | Role | Phone | [...] | MEDICAL [facility] [address] | [place] [address] | | | | | [address] [place], | [phone] | | | | | [place] [address] | | | | | | [phone] | | | +--------+ + + + [...] differ ent from the original. Erika Ernst, BRSIA Aponte CMA If she is having trouble [...] | | | | | [place] [address] | | | | | | [phone] | | | | | | | | | | | | Julia Fisher, | | | | | | PT | | +--------+ + + + + | 02/18/ | Appointment | Rehabilitation | Erika Ernst, | | | 2019 | | | DO [address] [place] | | | | | | [place] [address] | | | | | | [phone] | | | | | | | | | | | | Genesis Ayon, OT | | +--------+ + + + + | 02/25/ | Office | Primary Care | Erika Ernst, | | | 2019 | Visit | | DO [address] [place] | | | | | | [place] [address] | | | | | | [phone] | | | | | | | [...] | | | | | [place] [address] | | | | | | [phone] | | | | | | | | +--------+ + + + + | 02/27/ | Appointment | Radiology | Dhara, | | | 2019 | | | [address] | | | | | | [address] [place], | | | | | | [place] [address] | | | | | | [phone] | | | | | | | | +--------+ + + + + | 03/04/ | Appointment | Rehabilitation | Genesis Ayon OT | | 2019 | | | | | +--------+ + + + + | 03/09/ | Office | Orthopedic Surgery | Jeffrey Gandhi, | | | 2019 | Visit | | [address] [facility] | | | | | | [place] [address] | | | | | | [phone] | | | | | | | [...] [place] | | | | | | [address] | | | | | | [phone] | | | | | | | [...] | | | | | [place] [address] | | | | | | [phone] | | | | | | | | | | | | Azul Yeboah, | | | | | | [address] | | | | | | [place] | | | | | | [place] [address] | | | | | | [phone] | | | | | | | [...] [address] | | | | | | [phone] | | | | | | | | +--------+ + + + + documented as of this encounter Visit Diagnoses Not on filedocumented in this encounter"
--- OUTSIDE RECORDS SUMMARY | ~2020-02-18 | XMS | Encounter Summary ---
Demographics + + + | Address | [address] | | | [place] [address] | + + + | Home Phone [...] Providers + +------+ + | Care Janitor Caretaker Name | Role | Phone | + [...] [place] | | | | | [address] [place], [place] | [place] [address] | | | | | [address] | [phone] | | | | | [phone] | | | +--------+ + + + [...] | | | | | [place] [address] | | | | | | [phone] | | | | | | | | | | | | Julia Fisher, | | | | | | PT | | +--------+ + + + + | 02/18/ | Appointment | Rehabilitation | Erika Ernst, | | | 2019 | | | DO [address] [place] | | | | | | [place] [address] | | | | | | [phone] | | | | | | | | | | | | [facility] OT | | +--------+ + + + + | 02/25/ | Office | Primary Care | Erika Ernst, | | | 2019 | Visit | | DO [address] [place] | | | | | | [place] [address] | | | | | | [phone] | | | | | | | [...] | | | | | [place] [id number] | | | | | | [phone] | | | | | | | | +--------+ + + + + | 02/27/ | Appointment | Radiology | Dhara, | | | 2019 | | | [address] | | | | | | 4TH [facility], | | | | | | [place] [address] | | | | | | [phone] | | | | | | | [...] [place] | | | | | | [place] [address] | | | | | | [phone] | | | | | | | [...] [place] | | | | | | [address] | | | | | | [phone] | | | | | | | [...] | | | | | [place] [address] | | | | | | [phone] | | | | | | | | | | | | Azul Yeboah, | | | | | | MD [address] | | | | | | [place] | | | | | | [place] [address] | | | | | | [phone] | | | | | | | [...] | | | | | | [place] [address] | | | | | | [phone] | | | | | | | | +--------+ + + + + documented as of this encounter Visit Diagnoses Not on filedocumented in this encounter"
--- OUTSIDE RECORDS SUMMARY | ~2020-02-18 | XMS | Encounter Summary ---
Demographics + + + | Address | [address] | | | [place] [address] | + + + | Home Phone [...] Team Providers + +------+ + | Care Squeegee Tender Name | Role | Phone | [...] Pressure | | 2019 | | [facility] | [facility] | | | | | MEDICAL CLIN[facility] [address] | | | | | | 4TH [facility] [place], | | | | | | [place] [address] | | | | | | [phone] | | | +--------+ + + + [...] | | | | | [place] [address] | | | | | | [phone] | | | | | | | | | | | | Julia Fisher, | | | | | | PT | | +--------+ + + + + | 02/18/ | Appointment | Rehabilitation | Erika Ernst, | | | 2019 | | | DO [address] [place] | | | | | | [place] [address] | | | | | | [phone] | | | | | | | | | | | | [facility] OT | | +--------+ + + + + | 02/25/ | Office | Primary Care | Erika Ernst, | | | 2019 | Visit | | DO [address] [place] | | | | | | [place] [address] | | | | | | [phone] | | | | | | | [...] | | | | | [place] [address] | | | | | | [phone] | | | | | | | | +--------+ + + + + | 02/27/ | Appointment | Radiology | Dhara, | | | 2019 | | | [address] | | | | | | [address] [place], | | | | | | [place] [address] | | | | | | [phone] | | | | | | | [...] | | | | [place] [address] | | | | | | [phone] | | | | | | | [...] [place] | | | | | | [address] | | | | | | [phone] | | | | | | | [...] | | | | | [place] [address] | | | | | | [phone] | | | | | | | | | | | | Azul Yeboah, | | | | | | MD [address] | | | | | | [place] [place] | | | | | | [place] [address] | | | | | | [phone] | | | | | | | [...] | | | | | | [place] [address] | | | | | | [phone] | | | | | | | | +--------+ + + + + documented as of this encounter Visit Diagnoses Not on filedocumented in this encounter"
--- OUTSIDE RECORDS SUMMARY | ~2020-02-18 | XMS | Encounter Summary ---
Demographics + + + | Address | [address] | | | [place] [address] | + + + | Home Phone [...] Team Providers + +------+ + | Care Cornice Maker Name | Role | Phone | [...] [place] | | | | | [place] [address] | [address] | | | | | [phone] | | | | | | | [...] | | | | | [place] [address] | | | | | | [phone] | | | | | | | | | | | | Julia Fisher, | | | | | | PT | | +--------+ + + + + | 02/18/ | Appointment | Rehabilitation | Erika Ernst, | | | 2019 | | | DO [address] | | | | | | [place] [address] | | | | | | [phone] | | | | | | | | | | | | [facility] | | +--------+ + + + + | 02/25/ | Office | Primary Care | Erika Ernst, | | | 2019 | Visit | | DO [address] | | | | | | [place] [address] | | | | | | [phone] | | | | | | | [...] | | | | | [place] [address] | | | | | | [phone] | | | | | | | | +--------+ + + + + | 02/27/ | Appointment | Radiology | Dhara, | | | 2019 | | | [address] | | | | | | [address] [facility], | | | | | | [place] [address] | | | | | | [phone] | | | | | | | | +--------+ + + + + | 03/04/ | Appointment | Rehabilitation | [facility] | | | 2019 | | | | | +--------+ + + + + | 03/09/ | Office | Orthopedic Surgery | Jeffrey Gandhi, | | | 2019 | Visit | | [address] | | | | | | [place] [address] | | | | | | [phone] | | | | | | | [...] [place] | | | | | | [address] | | | | | | [phone] | | | | | | | [...] | | | | | [place] [address] | | | | | | [phone] | | | | | | | | | | | | Azul Yeboah, | | | | | | MD [address] | | | | | | [address] [place] | | | | | | [place] [address] | | | | | | [phone] | | | | | | | [...] | | | | | | [place] [address] | | | | | | [phone] | | | | | | | | +--------+ + + + + documented as of this encounter Visit Diagnoses Not on filedocumented in this encounter"
--- OUTSIDE RECORDS SUMMARY | ~2020-02-18 | XMS | Encounter Summary ---
Demographics + + + | Address | [address] | | | [place] [address] | + + + | Home Phone [...] Providers + +------+ + | Care Fire Captain Marine Name | Role | Phone | + [...] | 2018 | | [facility] | BIOCHEMISTRY TEACHER [address] | immobilizing cast | | | | CENTER [address] | [place] | (Primary Dx) | | | | [place] | [address] | | | | | [address] | | | | | | [phone] | | | +--------+ + + + [...] be sent through Care Everywhere.Zohra Marrero Instructions (Maori)documented in this encounter Medications at Time of [...] | 04/12/20 | | | (VITAMIN D3) 67153 | mouth Once a week | tablet [...] | | 2019 | | | DO [facility] | | | | | | [place] [address] | | | | | | [phone] | | | | | | | | | | | | Julia Fisher, | | | | | | PT | | +--------+ + + + + | 02/18/ | Appointment | Rehabilitation | Erika Ernst, | | | 2019 | | | DO [address] | | | | | | [place] [address] | | | | | | [phone] | | | | | | | | | | | | Genesis Ayon, OT | | +--------+ + + + + | 02/25/ | Office | Primary Care | Erika Ernst, | | | 2019 | Visit | | DO [address] | | | | | | [place] [address] | | | | | | [phone] | | | | | | | [...] | | | | | [place] [address] | | | | | | [phone] | | | | | | | | +--------+ + + + + | 02/27/ | Appointment | Radiology | Dhara, | | | 2019 | | | [address] | | | | | | [address] [place], | | | | | | [place] [address] | | | | | | [phone] | | | | | | | [...] | | | | | [place] [address] | | | | | | [phone] | | | | | | | [...] [place] | | | | | | [address] | | | | | | [phone] | | | | | | | [...] | | | | | [place] [address] | | | | | | [phone] | | | | | | | | | | | | Azul Yeboah, | | | | | | MD [address] | | | | | | [place] | | | | | | [place] [address] | | | | | | [phone] | | | | | | | [...] | | | | | | [place] [address] | | | | | | [phone] | | | | | | | [...]
--- OUTSIDE RECORDS SUMMARY | ~2020-02-18 | XMS | Encounter Summary ---
Demographics + + + | Address | [address] | | | [place] [address] | + + + | Home Phone [...] Providers + +------+ + | Care Lamination Operator Name | Role | Phone | [...] | Telephone | [place] [facility] | Erika Ernst Joie, | Pain | | 2020 | | [facility] | DO [address] | | | | | [facility] [address] | [place] [address] | | | | [address] [place], | [phone] | | | | | [place] [address] | | | | | | [phone] | | | +--------+ + + + [...] | | | | | [place] [address] | | | | | | [phone] | | | | | | | | | | | | Julia Fisher, | | | | | | PT | | +--------+ + + + + | 02/18/ | Appointment | Rehabilitation | Erika Ernst, | | | 2019 | | | DO [address] | | | | | | [place] [address] | | | | | | [phone] | | | | | | | | | | | | Genesis Ayon OT | | +--------+ + + + + | 02/25/ | Office | Primary Care | Erika Ernst, | | | 2019 | Visit | | DO [address] | | | | | | [place] [address] | | | | | | [phone] | | | | | | | [...] | | | | | [place] [address] | | | | | | [phone] | | | | | | | | +--------+ + + + + | 02/27/ | Appointment | Radiology | Dhara, | | | 2019 | | | [address] | | | | | | [facility] [facility] | | | | | | [place] [address] | | | | | | [phone] | | | | | | | [...] [place] | | | | | | [place] [address] | | | | | | [phone] | | | | | | | [...] [place] | | | | | | [address] | | | | | | [phone] | | | | | | | [...] | | | | | [place] [address] | | | | | | [phone] | | | | | | | | | | | | Azul Yeboah, | | | | | | MD [address] | | | | | | [place] | | | | | | [place] [address] | | | | | | [phone] | | | | | | | [...] | | | | | | [place] [address] | | | | | | [phone] | | | | | | | | +--------+ + + + + documented as of this encounter Visit Diagnoses Not on filedocumented in this encounter"
--- OUTSIDE RECORDS SUMMARY | ~2020-02-18 | XMS | Encounter Summary ---
Demographics + + + | Address | [address] | | | [place] [address] | + + + | Home Phone [...] Providers + +------+ + | Care Paint Dipper Name | Role | Phone | [...] | s, right | [address] | [address] | | | | | Place of | [place], | Phone: | | | | | occurrence, | [place] [address] | [phone] | | | | | industrial | Phone: | Fax: | | | | | places and | [phone] | [phone] | | | | | premises | Fax: | | | | | | Procedures | [phone] | | | | | | MRI [...] Closed | | Radiology | Diagnoses | Micahel, | Cc Wgr Xray | | | | | De | Usha | [address] | | | | | Karolyn's | MD Precious | DR [place] | | | | | tenosynoviti | [address] | [place], [place] | | | | | s, right | [address] | [address] | | | | | Place of | [facility], | Phone: | | | | | occurrence, | [place] [address] | [phone] | | | | | industrial | Phone: | Fax: | | | | | places and | [phone] | [phone] | | | | | premises | Fax: | | | | | | Procedures | [phone] | | | | | | MRI Wrist | | | | | | | Right wo | | | | | | | Contrast | | | +--------+--------+ + + + + Encounter Details +--------+ + + + + | Date | Type | Department | Care Team | Description | +--------+ + + + + | 12/08/ | Hospital | [place] [facility] | Usha Rodriguez | [facility] | | 2020 | Encounter | Hospital MRI [address] | MD Precious [address] | tenosynovitis, | | | | [address] | [address] [place] | right; Place of | | | | [place], [place] | [place] [address] | occurrence, | | | | [address] | [phone] | industrial places | | | | [phone] | | and premises | +--------+ + [...] | | | | | [place] [address] | | | | | | [phone] | | | | | | | | | | | | Julia Fisher, | | | | | | PT | | +--------+ + + + + | 02/18/ | Appointment | Rehabilitation | Erika Ernst, | | | 2019 | | | DO [address] | | | | | | [place] [address] | | | | | | [phone] | | | | | | | | | | | | Genesis Ayon OT | | +--------+ + + + + | 02/25/ | Office | Primary Care | Erika Ernst, | | | 2019 | Visit | | [address] [place] [address] | | | | | | [place] [address] | | | | | | [phone] | | | | | | | | +--------+ + + + + | 02/25/ | Appointment | Rehabilitation | Genesis Ayon OT | | | 2019 | | | | | +--------+ + + + + | 02/26/ | Virtual | Rehabilitation | Usha Rodriguez | | | 2019 | Office | | MD rPecious [address] | | | | Visit | | [place] | | | | | | [place] [address] | | | | | | [phone] | | | | | | | | +--------+ + + + + | 02/27/ | Appointment | Radiology | Dhara, | | | 2019 | | | [address] | | | | | | [address] [facility] | | | | | | [place] [address] | | | | | | [phone] | | | | | | | | +--------+ + + + + | 03/04/ | Appointment | Rehabilitation | Genesis Ayon OT | | | 2019 | | | | | +--------+ + + + + | 03/09/ | Office | Orthopedic Surgery | Jeffrey Gandhi, | | | 2019 | Visit | | [address] | | | | | | [place] [address] | | | | | | [phone] | | | | | | | [...] [place] | | | | | | [address] | | | | | | [phone] | | | | | | | [...] | | | | | [place] [address] | | | | | | [phone] | | | | | | | | | | | | Azul Yeboah, | | | | | | [address] | | | | | | [place] | | | | | | [place] [address] | | | | | | [phone] | | | | | | | [...] | | | | | | [place] [address] | | | | | | [phone] | | | | | | | [...]
--- OUTSIDE RECORDS SUMMARY | ~2020-02-18 | XMS | Encounter Summary ---
Demographics + + + | Address | [address] | | | [place] [address] | + + + | Home Phone [...] Team Providers + +------+ + | Care Blister Packaging Machine Operator Name | Role | Phone [...] | [place] | [place] [address] | | | | | [address] | [phone] | | | | | [phone] | | | +--------+ + + + [...] [address] | | | | | | [phone] | | | | | | | | | | | | Julia Fisher, | | | | | | PT | | +--------+ + + + + | 02/18/ | Appointment | Rehabilitation | Erika Ernst, | | | 2019 | | | DO [address] | | | | | | [place] [address] | | | | | | [phone] | | | | | | | | | | | | Genesis Ayon OT | | +--------+ + + + + | 02/25/ | Office | Primary Care | Erika Ernst, | | | 2019 | Visit | | DO [address] | | | | | | [place] [address] | | | | | | [phone] | | | | | | | [...] | | | | | [place] [address] | | | | | | [phone] | | | | | | | | +--------+ + + + + | 02/27/ | Appointment | Radiology | Dhara, | | | 2019 | | | [address] | | | | | | [address] [facility], | | | | | | [place] [address] | | | | | | [phone] | | | | | | | | +--------+ + + + + | 03/04/ | Appointment | Rehabilitation | Genesis Ayon OT | | | 2019 | | | | | +--------+ + + + + | 03/09/ | Office | Orthopedic Surgery | Jeffrey Gandhi, | | 2019 | Visit | | [address] | | | | | | [place] [address] | | | | | | [phone] | | | | | | | [...] [place] | | | | | | [address] | | | | | | [phone] | | | | | | | [...] | | | | | [place] [address] | | | | | | [phone] | | | | | | | | | | | | Azul Yeboah, | | | | | | MD [address] | | | | | | [place] | | | | | | [place] [address] | | | | | | [phone] | | | | | | | [...] | | | | | | [place] [address] | | | | | | [phone] | | | | | | | | +--------+ + + + + documented as of this encounter Visit Diagnoses Not on filedocumented in this encounter"
--- OUTSIDE RECORDS SUMMARY | ~2020-02-18 | XMS | Encounter Summary ---
Demographics + + + | Address | [address] | | | [place] [address] | + + + | Home Phone [...] | | | [place], [place] | [address] | | | | | [address] | [phone] | | | | | [phone] | | | +--------+ + + + [...] | | | | | [place] [address] | | | | | | [phone] | | | | | | | | | | | | Julia Fisher, | | | | | | PT | | +--------+ + + + + | 02/18/ | Appointment | Rehabilitation | Erika Ernst, | | | 2019 | | | DO [address] | | | | | | [place] [address] | | | | | | [phone] | | | | | | | | | | | | Genesis Ayon OT | | +--------+ + + + + | 02/25/ | Office | Primary Care | Erika Ernst, | | | 2019 | Visit | | DO [address] | | | | | | [place] [address] | | | | | | [phone] | | | | | | | [...] | | | | | [place] [address] | | | | | | [phone] | | | | | | | | +--------+ + + + + | 02/27/ | Appointment | Radiology | Dhara, | | | 2019 | | | [address] | | | | | | [address]TH [facility], | | | | | | [place] [address] | | | | | | [phone] | | | | | | | | +--------+ + + + + | 03/04/ | Appointment | Rehabilitation | Genesis Ayon OT | | | 2019 | | | | | +--------+ + + + + | 03/09/ | Office | Orthopedic Surgery | Jeffrey Gandhi, | | | 2019 | Visit | | [address] | | | | | | [place] [address] | | | | | | [phone] | | | | | | | [...] [place] | | | | | | [address] | | | | | | [phone] | | | | | | | [...] | | | | | [place] [address] | | | | | | [phone] | | | | | | | | | | | | Azul Yeboah, | | | | | | MD [address] | | | | | | [place] | | | | | | [place] [address] | | | | | | [phone] | | | | | | | [...] | | | | | | [place] [address] | | | | | | [phone] | | | | | | | | +--------+ + + + + documented as of this encounter Visit Diagnoses Not on filedocumented in this encounter"
--- OUTSIDE RECORDS SUMMARY | ~2020-02-18 | XMS | Encounter Summary ---
Demographics + + + | Address | [address] | | | [place] [address] | + + + | Home Phone [...] Providers + +------+ + | Care Administrative Director Name | Role | Phone | [...] [address] [place] | [place] [address] | | | | | [place], [place] | [phone] | | | | | [address] | | | | | | [phone] | | | +--------+ + + + [...] | 04/12/20 | | | (VITAMIN D3) 63871 | mouth Once a week | tablet [...] | | | | | [place] [address] | | | | | | [phone] | | | | | | | | | | | | Julia Fisher, | | | | | | PT | | +--------+ + + + + | 02/18/ | Appointment | Rehabilitation | Erika Ernst, | | | 2019 | | | DO [address] | | | | | | [place] [address] | | | | | | [phone] | | | | | | | | | | | | Genesis Ayon OT | | +--------+ + + + + | 02/25/ | Office | Primary Care | Erika Ernst, | | | 2019 | Visit | | DO [address] | | | | | | [place] [address] | | | | | | [phone] | | | | | | | [...] | | | | | [place] [address] | | | | | | [phone] | | | | | | | | +--------+ + + + + | 02/27/ | Appointment | Radiology | Dhara, | | | 2019 | | | [address] | | | | | | 4TH [facility], | | | | | | [place] [address] | | | | | | [phone] | | | | | | | [...] CLINIC | | | | | | [place] [address] | | | | | | [phone] | | | | | | | [...] [place] | | | | | | [address] | | | | | | [phone] | | | | | | | [...] | | | | | [place] [address] | | | | | | [phone] | | | | | | | | | | | | Azul Yeboah, | | | | | | MD [address] | | | | | | [place] | | | | | | [place] [address] | | | | | | [phone] | | | | | | | [...] [address] | | | | | | [phone] | | | | | | | [...]
--- OUTSIDE RECORDS SUMMARY | ~2020-02-18 | XMS | Encounter Summary ---
Demographics + + + | Address | [address] | | | [place] [address] | + + + | Home Phone [...] Providers + +------+ + | Care Weight Tester Name | Role | Phone | [...] | [address] | | | | | [address] | | | | | | [phone] | | | +--------+--------+ + + + [...] | | | | | [place] [address] | | | | | | [phone] | | | | | | | | | | | | Julia Fisher, | | | | | | PT | | +--------+ + + + + | 02/18/ | Appointment | Rehabilitation | Erika Ernst, | | | 2019 | | | DO [address] | | | | | | [place] [address] | | | | | | [phone] | | | | | | | | | | | | Genesis Ayon OT | | +--------+ + + + + | 02/25/ | Office | Primary Care | Erika Ernst, | | | 2019 | Visit | | DO [address] | | | | | | [place] [address] | | | | | | [phone] | | | | | | | [...] | | | | | [place] [address] | | | | | | [phone] | | | | | | | | +--------+ + + + + | 02/27/ | Appointment | Radiology | Dhara, | | | 2019 | | | [address] | | | | | | [address]TH [facility], | | | | | | [place] [address] | | | | | | [phone] | | | | | | | [...] | | | | | [place] [address] | | | | | | [phone] | | | | | | | [...] [place] | | | | | | [address] | | | | | | [phone] | | | | | | | [...] [address] | | | | | | [phone] | | | | | | | | | | | | Azul Yeboah, | | | | | | MD [address] | | | | | | [place] | | | | | | [place] [address] | | | | | | [phone] | | | | | | | [...] | | | | | | [place] [address] | | | | | | [phone] | | | | | | | | +--------+ + + + + documented as of this encounter Visit Diagnoses Not on filedocumented in this encounter"
--- OUTSIDE RECORDS SUMMARY | ~2020-02-18 | XMS | Encounter Summary ---
Demographics + + + | Address | [address] | | | [place] [address] | + + + | Home Phone [...] Providers + +------+ + | Care Office Machine Inspector Name | Role | Phone | [...] | [address] | [place] [address] | of occurrence, | | | | [facility], [place] | [phone] | industrial places | | | | [address] | | and premises | | | | [phone] | | | +--------+ + + + [...] Rodriguez MD - 12/30/2019 8:30 AM PDTEmployer: [employer] Guarantor: BETINA Date of injury: 10/17/2017 Claim number: [id number] Chief complaint: Follow-up right wrist injury, MRI [...] worker's care. This note was dictated using [employer] voice recognition software. Occasional wrong- word or [...] [address] | | | | | | [phone] | | | | | | | [...] [address] | | | | | | [phone] | | | | | | | | | | | | [facility] OT | | +--------+ + + + + | 02/25/ | Office | Primary Care | Erika Ernst, | | | 2019 | Visit | | DO [address] | | | | | | [place] [address] | | | | | | [phone] | | | | | | | [...] | | | | | [place] [address] | | | | | | [phone] | | | | | | | | +--------+ + + + + | 02/27/ | Appointment | Radiology | Dhara, | | | 2019 | | | [address] | | | | [address] [place], | | | | | | [place] [address] | | | | | | [phone] | | | | | | | | +--------+ + + + + | 03/04/ | Appointment | Rehabilitation | Genesis Ayon OT | | | 2019 | | | | | +--------+ + + + + | 03/09/ | Office | Orthopedic Surgery | Jeffrey Gandhi, | | | 2019 | Visit | | [place] [address] [place] [address] | | | | | | [place] [address] | | | | | | [phone] | | | | | | | [...] [place] | | | | | | [address] | | | | | | [phone] | | | | | | | [...] | | | | | [place] [address] | | | | | | [phone] | | | | | | | | | | | | Azul Yeboah, | | | | | | MD [address] | | | | | | [place] | | | | | | [place] [address] | | | | | | [phone] | | | | | | | [...] | | | | | | [place] [address] | | | | | | [phone] | | | | | | | | +--------+ + + + + documented as of this encounter Visit Diagnoses + + | Diagnosis | + + | De Karolyn's tenosynovitis, right - Primary Radial styloid tenosynovitis | + + | Place of occurrence, industrial places and premises | + + documented in this encounter"
--- OUTSIDE RECORDS SUMMARY | ~2020-02-18 | XMS | Encounter Summary ---
Demographics + + + | Address | [address] | | | [place] [address] | + + + | Home Phone [...] Team Providers + +------+ + | Care Club Attendant Name | Role | Phone [...] [place] | | | | | [place] [address] | [address] | | | | | [phone] | [phone] | | | | | | | [...] | | 2019 | | | DO [facility] | | | | | | [place] [address] | | | | | | [phone] | | | | | | | | | | | | Julia Fisher, | | | | | | PT | | +--------+ + + + + | 02/18/ | Appointment | Rehabilitation | Erika Ernst, | | | 2019 | | | DO [address] | | | | | | [place] [address] | | | | | | [phone] | | | | | | | | | | | | [facility] | | +--------+ + + + + | 02/25/ | Office | Primary Care | Erika Ernst, | | | 2019 | Visit | | DO [address] | | | | | | [place] [address] | | | | | | [phone] | | | | | | | [...] | | | | | [place] [address] | | | | | | [phone] | | | | | | | | +--------+ + + + + | 02/27/ | Appointment | Radiology | Dhara, | | | 2019 | | | [address] | | | | | | [address]TH [facility], | | | | | | [place] [address] | | | | | | [phone] | | | | | | | | +--------+ + + + + | 03/04/ | Appointment | Rehabilitation | [facility] Ayon OT | | | 2019 | | | | | +--------+ + + + + | 03/09/ | Office | Orthopedic Surgery | Jeffrey Gandhi, | | | 2019 | Visit | | [address] | | | | | | [place] [address] | | | | | | [phone] | | | | | | | [...] [place] | | | | | | [address] | | | | | | [phone] | | | | | | | [...] [address] | | | | | | [phone] | | | | | | | | | | | | Azul Yeboah, | | | | | | MD [address] | | | | | | [place] | | | | | | [place] [address] | | | | | | [phone] | | | | | | | [...] | | | | | | [place] [address] | | | | | | [phone] | | | | | | | | +--------+ + + + + documented as of this encounter Visit Diagnoses Not on filedocumented in this encounter"
--- OUTSIDE RECORDS SUMMARY | ~2020-02-18 | XMS | Encounter Summary ---
Demographics + + + | Address | [address] | | | [place] [address] | + + + | Home Phone [...] + +------+ + | Care Sales Representative Livestock Name | Role | Phone | + [...] | | | | s (de | [place], [place] | [place] [address] | | | | | quervain) | [address] | Phone: | | | | | Pain in | Phone: | [phone] | | | | | right wrist | [phone] | Fax: | | | | | Procedures | Fax: | [phone] | | | | | OT TREAT | [phone] | | +--------+--------+ + + + + [...] | | [address] | [place] [address] | (Primary Dx); Right | | | | [place], [place] | [phone] | wrist pain | | | | [address] | | | | | | [phone] | Michela Azevedo, | | | | [...] | 11/26/19 | | | (VITAMIN D3) 547[address] | mouth Once a week | tablet [...] might be different f rom the original. [facility] OT [address] [place] [address] Occupational Therapy Daily Treatment Note Date: 12/06/2018 [...] loading and prop rioception at tabletop, 5' ethnic origins teacher strengthening 1-2x/day light resistance, and second surgic [...] reduced "scrubbing" motion, submaximal isometric extension, reduced ethnic origins teacher strengthening to 5' x 1-2 a day with light putty, hold on wall pushu ps and heavy ethnic origins teacher strengthening until symptoms normalize (pt education), pt [...] period and is compliant with wrist and ethnic origins teacher strengthening exercises. She does still hav e deficits in ethnic origins teacher strength and wrist stability as well as pain with daily activities. Her j ob description may be changing which would decrease the physical demands of her work, making it more appropriate for her current status. She continues to benefit from Team Assembler apy to maximize her ethnic origins teacher strength and wrist stability following this injury and return her t o prior level of function. 10/30/2018 - REASON FOR RE-CERTIFICATION: Andrea has received 12 Occupational Therapy treatme nts since 08/07/2018 following her right wrist surgery. She has regained full AROM of the rig ht wrist but continues to have right wrist, ethnic origins teacher and pinch weakness and significant pain [...] in 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, and ethnic origins teacher and pinch weakness in the right [...] | 2019 | | | DO ST [place] | | | | | | [facility] [address] | | | | | | [phone] | | | | | | | | | | | | Julia Fisher, | | | | | | PT | | +--------+ + + + + | 02/18/ | Appointment | Rehabilitation | Erika Ernst, | | | 2019 | | | DO [address] | | | | | | [place] [address] | | | | | | [phone] | | | | | | | | | | | | [facility] | | +--------+ + + + + | 02/25/ | Office | Primary Care | Erika Ernst, | | | 2019 | Visit | | DO [address] | | | | | | [place] [address] | | | | | | [phone] | | | | | | | [...] | | | | | [place] [address] | | | | | | [phone] | | | | | | | | +--------+ + + + + | 02/27/ | Appointment | Radiology | Dhara, | | | 2019 | | | [address] | | | | | | [address] [place], | | | | | | [place] [address] | | | | | | [phone] | | | | | | | [...] | | | | | [place] [address] | | | | | | [phone] | | | | | | | [...] [place] | | | | | | [address] | | | | | | [phone] | | | | | | | [...] | | | | | [place] [address] | | | | | | [phone] | | | | | | | | | | | | Azul Yeboah, | | | | | | MD [address] | | | | | | [address] [place] | | | | | | [place] [address] | | | | | | [phone] | | | | | | | [...] | | | | | | [place] [address] | | | | | | [phone] | | | | | | | | +--------+ + + + + documented as of this encounter Visit Diagnoses + + | Diagnosis | + + | Radial styloid tenosynovitis - Primary | + + | Right wrist pain Pain in joint, forearm | + + documented in this encounter
--- OUTSIDE RECORDS SUMMARY | ~2020-02-18 | XMS | Encounter Summary ---
Demographics + + + | Address | [address] | | | [place] [address] | + + + | Home Phone [...] Providers + +------+ + | Care Silviculture Teacher Name | Role | Phone | [...] | [facility] | [place] [address] | | | | [address] [place], | [phone] | | | | | [place] [address] | | | | | | [phone] | | | +--------+ + + + [...] | | | | | [place] [address] | | | | | | [phone] | | | | | | | | | | | | Forma, Julia M, | | | | | | PT | | +--------+ + + + + | 02/18/ | Appointment | Rehabilitation | Erika Ernst, | | | 2019 | | | DO [address] | | | | | | [place] [address] | | | | | | [phone] | | | | | | | | | | | | [facility] | | +--------+ + + + + | 02/25/ | Office | Primary Care | Erika Ernst, | | | 2019 | Visit | | DO [address] [place] | | | | | | [place] [address] | | | | | | [phone] | | | | | | | [...] | | | | | [place] [address] | | | | | | [phone] | | | | | | | | +--------+ + + + + | 02/27/ | Appointment | Radiology | Dhara, | | | 2019 | | | [address] | | | | | | [address] [facility], | | | | | | [place] [address] | | | | | | [phone] | | | | | | | [...] ST | | | | | | [place] [address] | | | | | | [phone] | | | | | | | [...] [place] | | | | | | [address] | | | | | | [phone] | | | | | | | [...] | | | | | [place] [address] | | | | | | [phone] | | | | | | | | | | | | Azul Yeboah, | | | | | | MD [address] | | | | | | [address] [place] | | | | | | [place] [address] | | | | | | [phone] | | | | | | | [...] | | | | | | [place] [address] | | | | | | [phone] | | | | | | | | +--------+ + + + + documented as of this encounter Visit Diagnoses Not on filedocumented in this encounter"
--- OUTSIDE RECORDS SUMMARY | ~2020-02-18 | XMS | Encounter Summary ---
Demographics + + + | Address | [address] | | | [place] [address] | + + + | Home Phone [...] | [facility] | [place] [address] | | | | | [address] [place], | [phone] | | | | | [place] [address] | | | | | | [phone] | | | +--------+ + + + [...] | | | | | [place] [address] | | | | | | [phone] | | | | | | | | | | | | Julia Fisher, | | | | | | PT | | +--------+ + + + + | 02/18/ | Appointment | Rehabilitation | Erika Ernst, | | | 2019 | | | DO [address] | | | | | | [place] [address] | | | | | | [phone] | | | | | | | | | | | | Genesis Ayon OT | | +--------+ + + + + | 02/25/ | Office | Primary Care | Erika Ernst, | | | 2019 | Visit | | DO [address] | | | | | | [place] [address] | | | | | | [phone] | | | | | | | [...] | | | | | [place] [address] | | | | | | [phone] | | | | | | | | +--------+ + + + + | 02/27/ | Appointment | Radiology | Dhara, | | | 2019 | | | [address] | | | | | | [facility] | | | | | | [place] [address] | | | | | | [phone] | | | | | | | [...] [address] | | | | | | [place] [address] | | | | | | [phone] | | | | | | | [...] [place] | | | | | | [address] | | | | | | [phone] | | | | | | | [...] | | | | | [place] [address] | | | | | | [phone] | | | | | | | | | | | | Azul Yeboah, | | | | | | MD [address] | | | | | | [place] | | | | | | [place] [address] | | | | | | [phone] | | | | | | | [...] | | | | | | [place] [address] | | | | | | [phone] | | | | | | | | +--------+ + + + + documented as of this encounter Visit Diagnoses Not on filedocumented in this encounter"
--- OUTSIDE RECORDS SUMMARY | ~2020-02-18 | XMS | Encounter Summary ---
Demographics + + + | Address | [address] | | | [place] [address] | + + + | Home Phone [...] Team Providers + +------+ + | Care Emu Farm Worker Name | Role | Phone | + +------+ + PCP | Unavailable | + +------+ + Encounter Details +--------+ + + + + | Date | Type | Department | Care Team | Description | +--------+ + + + + | 02/25/ | [facility] | Caro Zendejas | | | 2015 | Encounter | [facility] | Vale, DRYWALL SPRAYER [address] | | | | | [facility] [address] | [facility], [place] | | | | | [address]TH [facility], | [address] | | | | | [place] [address] | [phone] | | | | | [phone] | | | +--------+ + + + [...] | | | | | [place] [address] | | | | | | [phone] | | | | | | | | | | | | Julia Fisher, | | | | | | PT | | +--------+ + + + + | 02/18/ | Appointment | Rehabilitation | Erika Ernst, | | | 2019 | | | DO [address] | | | | | | [place] [address] | | | | | | [phone] | | | | | | | | | | | | Genesis Ayon, OT | | +--------+ + + + + | 02/25/ | Office | Primary Care | Erika Ernst, | | | 2019 | Visit | | DO [address] | | | | | | [place] [address] | | | | | | [phone] | | | | | | | [...] | | | | | [place] [address] | | | | | | [phone] | | | | | | | | +--------+ + + + + | 02/27/ | Appointment | Radiology | Dhara, | | | 2019 | | | [address] | | | | | | 4TH [facility], | | | | | | [place] [address] | | | | | | [phone] | | | | | | | | +--------+ + + + + | 03/04/ | Appointment | Rehabilitation | Genesis Ayon OT | | | 2019 | | | | | +--------+ + + + + | 03/09/ | Office | Orthopedic Surgery | Jeffrey Gandhi, | | | 2019 | Visit | | [address] | | | | | | [place] [address] | | | | | | [phone] | | | | | | | [...] [place] | | | | | | [address] | | | | | | [phone] | | | | | | | [...] | | | | | [place] [address] | | | | | | [phone] | | | | | | | | | | | | Azul Yeboah, | | | | | | MD [address] | | | | | | [place] | | | | | | [place] [address] | | | | | | [phone] | | | | | | | [...] | | | | | | [place] [address] | | | | | | [phone] | | | | | | | | +--------+ + + + + documented as of this encounter Visit Diagnoses Not on filedocumented in this encounter"
--- OUTSIDE RECORDS SUMMARY | ~2020-02-18 | XMS | Encounter Summary ---
Demographics + + + | Address | [address] | | | [place] [address] | + + + | Home Phone [...] | [place], [place] | [place] [address] | | | | | [address] | [phone] | | | | | [phone] | | | +--------+ + + + [...] | | | | | [place] [address] | | | | | | [phone] | | | | | | | | | | | | Julia Fisher, | | | | | | PT | | +--------+ + + + + | 02/18/ | Appointment | Rehabilitation | Erika Ernst, | | | 2019 | | | DO [address] | | | | | | [place] [address] | | | | | | [phone] | | | | | | | | | | | | Genesis Ayon OT | | +--------+ + + + + | 02/25/ | Office | Primary Care | Erika Ernst, | | | 2019 | Visit | | DO [address] | | | | | | [place] [address] | | | | | | [phone] | | | | | | | [...] | | | | | [place] [address] | | | | | | [phone] | | | | | | | | +--------+ + + + + | 02/27/ | Appointment | Radiology | Dhara, | | | 2019 | | | [address] | | | | | | [facility] [facility] [place], | | | | | | [place] [address] | | | | | | [phone] | | | | | | | [...] [place] | | | | | | [place] [address] | | | | | | [phone] | | | | | | | [...] [place] | | | | | | [address] | | | | | | [phone] | | | | | | | [...] | | | | | [place] [address] | | | | | | [phone] | | | | | | | | | | | | Azul Yeboah, | | | | | | MD [address] | | | | | | [place] | | | | | | [place] [address] | | | | | | [phone] | | | | | | | [...] [address] | | | | | | [phone] | | | | | | | | +--------+ + + + + documented as of this encounter Visit Diagnoses Not on filedocumented in this encounter"
--- OUTSIDE RECORDS SUMMARY | ~2020-02-18 | XMS | Encounter Summary ---
Demographics + + + | Address | [address] | | | [place] [address] | + + + | Home Phone [...] Team Providers + +------+ + | Care University Registrar Name | Role | Phone | + [...] | Telephone | [place] [facility] | Erika Enrst, | Lab Results | | 2019 | | [facility] | DO [address] | | | | | [facility] [address] | [place] [address] | | | | | [address] [place], | [phone] | | | | | [place] [address] | | | | | | [phone] | | | +--------+ + + + [...] | | | | | [place] [address] | | | | | | [phone] | | | | | | | | | | | | Forma, Julia M, | | | | | | PT | | +--------+ + + + + | 02/18/ | Appointment | Rehabilitation | Erika Ernst, | | | 2019 | | | DO [address] | | | | | | [place] [address] | | | | | | [phone] | | | | | | | | | | | | Genesis Ayon OT | | +--------+ + + + + | 02/25/ | Office | Primary Care | Eirka Ernst, | | | 2019 | Visit | | DO [address] | | | | | | [place] [address] | | | | | | [phone] | | | | | | | [...] | | | | | [place] [address] | | | | | | [phone] | | | | | | | | +--------+ + + + + | 02/27/ | Appointment | Radiology | Dhara, | | | 2019 | | | [address] | | | | | | 4TH [facility], | | | | | | [place] [address] | | | | | | [phone] | | | | | | | [...] ST | | | | | | [place] [address] | | | | | | [phone] | | | | | | | [...] [place] | | | | | | [address] | | | | | | [phone] | | | | | | | [...] | | | | | [place] [address] | | | | | | [phone] | | | | | | | | | | | | Azul Yeboah, | | | | | | MD [address] | | | | | | [place] | | | | | | [place] [address] | | | | | | [phone] | | | | | | | [...] | | | | | | [place] [address] | | | | | | [phone] | | | | | | | | +--------+ + + + + documented as of this encounter Visit Diagnoses Not on filedocumented in this encounter"
--- OUTSIDE RECORDS SUMMARY | ~2020-02-18 | XMS | Encounter Summary ---
Demographics + + + | Address | [address] | | | [place] [address] | + + + | Home Phone [...] Team Providers + +------+ + | Care Route Clerk Name | Role | Phone | [...] [address] [place] | [place] [address] | | | | | [place], [place] | [phone] | | | | | [address] | | | | | | [phone] | | | +--------+ + + + [...] | 03/19/20 | | | (VITAMIN D3) 85245 | mouth Once a week | tablet [...] | | | | | [place] [address] | | | | | | [phone] | | | | | | | | | | | | Julia Fisher, | | | | | | PT | | +--------+ + + + + | 02/18/ | Appointment | Rehabilitation | Erika Ernst, | | | 2019 | | | DO [address] | | | | | | [place] [address] | | | | | | [phone] | | | | | | | | | | | | Genesis Ayon, OT | | +--------+ + + + + | 02/25/ | Office | Primary Care | Eirka Ernst, | | | 2019 | Visit | | DO [address] | | | | | | [place] [address] | | | | | | [phone] | | | | | | | [...] | | | | | [place] [address] | | | | | | [phone] | | | | | | | | +--------+ + + + + | 02/27/ | Appointment | Radiology | Dhara, | | | 2019 | | | [address] | | | | | | 4TH [facility], | | | | | | [place] [address] | | | | | | [phone] | | | | | | | | +--------+ + + + + | 03/04/ | Appointment | Rehabilitation | Genesis Ayon OT | | | 2019 | | | | | +--------+ + + + + | 03/09/ | Office | Orthopedic Surgery | Jeffrey Gandhi, | | 2019 | Visit | | [address] | | | | | | [place] [address] | | | | | | [phone] | | | | | | | [...] [place] | | | | | | [address] | | | | | | [phone] | | | | | | | [...] | | | | | [place] [address] | | | | | | [phone] | | | | | | | | | | | | Azul Yeboah, | | | | | | MD [address] | | | | | | [place] | | | | | | [place] [address] | | | | | | [phone] | | | | | | | | +--------+ + + + + | 04/08/ | Appointment | Nutrition | Janel Webster | | | 2019 | | | [place], [place]A | | +--------+ + + + + | 05/21/ | Office | Neurology | Dhara, | | | 2019 | Visit | | Maddylauraromario, HIGH SCHOOL CHEMISTRY TEACHER [address] | | | | | | [address] [facility], | | | | | | [place] [address] | | | | | | [phone] | | | | | | | [...]
--- OUTSIDE RECORDS SUMMARY | ~2020-02-18 | XMS | Encounter Summary ---
Demographics + + + | Address | [address] | | | [place] [address] | + + + | Home Phone [...] Team Providers + +------+ + | Care Vacation Guide Name | Role | Phone | + +------+ + PCP | Unavailable | + +------+ + Encounter Details +--------+ + + + + | Date | Type | Department | Care Team | Description | +--------+ + + + + | 01/24/ | [facility] | Cody Go | | | 2017 | Encounter | [facility] | [address] [place] | | | | | [facility] [address] | [facility], [place] | | | | | [facility], | [address] | | | | | [place] [address] | [phone] | | | | | [phone] | | | +--------+ + + + [...] | | | | | [place] [address] | | | | | | [phone] | | | | | | | | | | | | Julia Fisher, | | | | | | PT | | +--------+ + + + + | 02/18/ | Appointment | Rehabilitation | Erika Ernst, | | | 2019 | | | DO [address] | | | | | | [place] [address] | | | | | | [phone] | | | | | | | | | | | | Genesis Ayon OT | | +--------+ + + + + | 02/25/ | Office | Primary Care | Erika Ernst, | | | 2019 | Visit | | DO [address] [place] [address] | | | | | | [place] [address] | | | | | | [phone] | | | | | | | [...] | | | | | [place] [address] | | | | | | [phone] | | | | | | | | +--------+ + + + + | 02/27/ | Appointment | Radiology | Dhara, | | | 2019 | | | [address] | | | | | | [address] [place], | | | | | | [place] [address] | | | | | | [phone] | | | | | | | [...] | | | | | [place] [address] | | | | | | [phone] | | | | | | | [...] [place] | | | | | | [address] | | | | | | [phone] | | | | | | | [...] | | | | | [place] [address] | | | | | | [phone] | | | | | | | | | | | | Azul Yeboah, | | | | | | MD [address] | | | | | | [place] | | | | | | [place] [address] | | | | | | [phone] | | | | | | | [...] | | | | | | [place] [address] | | | | | | [phone] | | | | | | | | +--------+ + + + + documented as of this encounter Visit Diagnoses Not on filedocumented in this encounter"
--- OUTSIDE RECORDS SUMMARY | ~2020-02-18 | XMS | Encounter Summary ---
Demographics + + + | Address | [address] | | | [place] [address] | + + + | Home Phone [...] Providers + +------+ + | Care Process Tank Tender Name | Role | Phone | + +------+ + PCP | Unavailable | + +------+ + Encounter Details +--------+ + + + + | Date | Type | Department | Care Team | Description | +--------+ + + + + | 09/03/ | [facility] | Jessica Hoang, | | | 2012 | Encounter | [facility] XRAY [address] | LAN/WAN ENGINEER [address] | | | | | [address] | [place] | | | | | [place] | [address] | | | | | [address] | | | | | | [phone] | | | +--------+ + + + [...] | | | | | [place] [address] | | | | | | [phone] | | | | | | | | | | | | Julia Fisher, | | | | | | PT | | +--------+ + + + + | 02/18/ | Appointment | Rehabilitation | Erika Ernst, | | | 2019 | | | DO [address] | | | | | | [place] [address] | | | | | | [phone] | | | | | | | | | | | | Genesis Ayon, SUSAN | | +--------+ + + + + | 02/25/ | Office | Primary Care | Erika Ernst, | | | 2019 | Visit | | DO [address] | | | | | | [place] [address] | | | | | | [phone] | | | | | | | [...] | | | | | [place] [address] | | | | | | [phone] | | | | | | | | +--------+ + + + + | 02/27/ | Appointment | Radiology | Dhara, | | | 2019 | | | [address] | | | | | | 4TH [facility], | | | | | | [place] [address] | | | | | | [phone] | | | | | | | | +--------+ + + + + | 03/04/ | Appointment | Rehabilitation | Genesis Ayon OT | | | 2019 | | | | | +--------+ + + + + | 03/09/ | Office | Orthopedic Surgery | Jeffrey Gandhi, | | | 2019 | Visit | | [address] [facility] | | | | | | [place] [address] | | | | | | [phone] | | | | | | | [...] [place] | | | | | | [address] | | | | | | [phone] | | | | | | | [...] | | | | | [place] [address] | | | | | | [phone] | | | | | | | | | | | | Azul Yeboah, | | | | | | MD [address] | | | | | | [place] | | | | | | [place] [address] | | | | | | [phone] | | | | | | | [...] | | | | | | [place] [address] | | | | | | [phone] | | | | | | | | +--------+ + + + + documented as of this encounter Visit Diagnoses Not on filedocumented in this encounter"
--- OUTSIDE RECORDS SUMMARY | ~2020-02-18 | XMS | Encounter Summary ---
Demographics + + + | Address | [address] | | | [place] [address] | + + + | Home Phone [...] Providers + +------+ + | Care Office Asst Name | Role | Phone | [...] | [facility] [address] | [place] [address] | | | | | [address] [place], | [phone] | | | | | [place] [address] | | | | | | [phone] | | | +--------+ + + + [...] NE | | | | | | [place], [place] [address] | | | | | | [phone] | | | | | | | | | | | | Julia Fisher, | | | | | | PT | | +--------+ + + + + | 02/18/ | Appointment | Rehabilitation | Erika Ernst, | | | 2019 | | | DO [address] [place] | | | | | | [place] [address] | | | | | | [phone] | | | | | | | | | | | | Genesis Ayon OT | | +--------+ + + + + | 02/25/ | Office | Primary Care | Erika Ernst, | | | 2019 | Visit | | DO [address] | | | | | | [place] [address] | | | | | | [phone] | | | | | | | [...] | | | | | [place] [address] | | | | | | [phone] | | | | | | | | +--------+ + + + + | 02/27/ | Appointment | Radiology | Dhara, | | | 2019 | | | [address] | | | | | | [address] [place], | | | | | | [place] [address] | | | | | | [phone] | | | | | | | [...] | | | | [place] [address] | | | | | | [phone] | | | | | | | [...] [place] | | | | | | [address] | | | | | | [phone] | | | | | | | [...] [address] | | | | | | [phone] | | | | | | | | | | | | Azul Yeboah, | | | | | | MD [address] | | | | | | [place] | | | | | | [place] [address] | | | | | | [phone] | | | | | | | [...] | | | | | | [place] [address] | | | | | | [phone] | | | | | | | | +--------+ + + + + documented as of this encounter Visit Diagnoses Not on filedocumented in this encounter"
--- OUTSIDE RECORDS SUMMARY | ~2020-02-18 | XMS | Encounter Summary ---
Demographics + + + | Address | [address] | | | [place] [address] | + + + | Home Phone [...] Providers + +------+ + | Care Finance Attorney Name | Role | Phone | [...] | [address] [place], [place] | [place] [address] | | | | | [address] | [phone] | | | | | [phone] | | | +--------+ + + + [...] | | | | | [place] [address] | | | | | | [phone] | | | | | | | | | | | | Julia Fisher, | | | | | | PT | | +--------+ + + + + | 02/18/ | Appointment | Rehabilitation | Erika Ernst, | | | 2019 | | | DO [address] [place] | | | | | | [place] [address] | | | | | | [phone] | | | | | | | | | | | | Genesis Ayon OT | | +--------+ + + + + | 02/25/ | Office | Primary Care | Erika Ernst, | | | 2019 | Visit | | DO [address] [place] | | | | | | [place] [address] | | | | | | [phone] | | | | | | | [...] | | | | | [place] [address] | | | | | | [phone] | | | | | | | | +--------+ + + + + | 02/27/ | Appointment | Radiology | Dhaar, | | | 2019 | | | [address] | | | | | | 4TH [facility], | | | | | | [place] [address] | | | | | | [phone] | | | | | | | [...] [place] | | | | | | [place] [address] | | | | | | [phone] | | | | | | | [...] [place] | | | | | | [address] | | | | | | [phone] | | | | | | | [...] | | | | | [place] [address] | | | | | | [phone] | | | | | | | | | | | | Azul Yeboah, | | | | | | MD [address] | | | | | | [place] | | | | | | [place] [address] | | | | | | [phone] | | | | | | | [...] | | | | | | [place] [address] | | | | | | [phone] | | | | | | | | +--------+ + + + + documented as of this encounter Visit Diagnoses Not on filedocumented in this encounter"
--- OUTSIDE RECORDS SUMMARY | ~2020-02-18 | XMS | Encounter Summary ---
Demographics + + + | Address | [address] | | | [place] [address] | + + + | Home Phone [...] Providers + +------+ + | Care Electric Switch Repairer Name | Role | Phone | [...] [address] | | | | | [place] [address] | | | | | | [phone] | | | +--------+ + + + [...] documented as of this encounter Progress Notes iNdhi Liang RN - 05/20/2019 1:45 PM PDTPt [...] | | | | | [place] [address] | | | | | | [phone] | | | | | | | | | | | | Julia Fisher, | | | | | | PT | | +--------+ + + + + | 02/18/ | Appointment | Rehabilitation | Erika Ernst, | | | 2019 | | | DO [address] [place] | | | | | | [place] [address] | | | | | | [phone] | | | | | | | | | | | | Genesis Ayon, OT | | +--------+ + + + + | 02/25/ | Office | Primary Care | Erika Ernst, | | | 2019 | Visit | | DO [address] [place] | | | | | | [place] [address] | | | | | | [phone] | | | | | | | [...] | | | | | [place] [address] | | | | | | [phone] | | | | | | | | +--------+ + + + + | 02/27/ | Appointment | Radiology | Dhara, | | | 2019 | | | [address] | | | | | | [address] [place], | | | | | | [place] [address] | | | | | | [phone] | | | | | | | | +--------+ + + + + | 03/04/ | Appointment | Rehabilitation | Genesis Ayon OT | | | 2019 | | | | | +--------+ + + + + | 03/09/ | Office | Orthopedic Surgery | Jeffrey Gandhi, | | | 2019 | Visit | | [place] [address] [facility] | | | | | | [place] [address] | | | | | | [phone] | | | | | | | [...] [place] | | | | | | [address] | | | | | | [phone] | | | | | | | [...] | | | | | [place] [address] | | | | | | [phone] | | | | | | | | | | | | Azul Yeboah, | | | | | | MD [address] | | | | | | [place] | | | | | | [place] [address] | | | | | | [phone] | | | | | | | [...] | | | | | | [place] [address] | | | | | | [phone] | | | | | | | | +--------+ + + + + documented as of this encounter Visit Diagnoses + + | Diagnosis | + + | Vertigo - Primary Dizziness and giddiness | + + documented in this encounter"
--- OUTSIDE RECORDS SUMMARY | ~2020-02-18 | XMS | Encounter Summary ---
Demographics + + + | Address | [address] | | | [place] [address] | + + + | Home Phone [...] Team Providers + +------+ + | Care Instrumentation Chemist Name | Role | Phone | [...] | [facility] | [place] [address] | | | | | [address] [place], | [phone] | | | | | [place] [address] | | | | | | [phone] | | | +--------+ + + + [...] | | | | | [place] [address] | | | | | | [phone] | | | | | | | | | | | | Forma, Julia M, | | | | | | PT | | +--------+ + + + + | 02/18/ | Appointment | Rehabilitation | Erika Ernst, | | | 2019 | | | DO [address] [place] | | | | | | [place] [address] | | | | | | [phone] | | | | | | | | | | | | Genesis Ayon OT | | +--------+ + + + + | 02/25/ | Office | Primary Care | Erika Ernst, | | | 2019 | Visit | | DO [address] [place] | | | | | | [place] [address] | | | | | | [phone] | | | | | | | [...] | | | | | [place] [address] | | | | | | [phone] | | | | | | | | +--------+ + + + + | 02/27/ | Appointment | Radiology | Dhara, | | | 2019 | | | [address] | | | | | | 4TH [facility], | | | | | | [place] [address] | | | | | | [phone] | | | | | | | [...] ST | | | | | | [place] [address] | | | | | | [phone] | | | | | | | [...] [place] | | | | | | [address] | | | | | | [phone] | | | | | | | [...] | | | | | [place] [address] | | | | | | [phone] | | | | | | | | | | | | Azul Yeboah, | | | | | | MD [address] | | | | | | [place] | | | | | | [place] [address] | | | | | | [phone] | | | | | | | [...] | | | | | | [place] [address] | | | | | | [phone] | | | | | | | | +--------+ + + + + documented as of this encounter Visit Diagnoses Not on filedocumented in this encounter"
--- OUTSIDE RECORDS SUMMARY | ~2020-02-18 | XMS | Encounter Summary ---
Demographics + + + | Address | [address] | | | [place] [address] | + + + | Home Phone [...] Providers + +------+ + | Care Supervisor [address] Name | Role | Phone | + [...] [address] | [facility] [place] [address] | joint disorder) | | | | [address] [facility], | [phone] | (Primary Dx) | | | | [place] [address] | | | | | | [phone] | | | +--------+---------+ + + + [...] have made referral to oral surgeon at [facility] since she has failed conservative Tx for [...] appointment as planned with oral surgeon at [facility]. S moises hydrated and do not overdo [...] [address] | | | | | | [phone] | | | | | | | | | | | | Julia Fisher, | | | | | | PT | | +--------+ + + + + | 02/18/ | Appointment | Rehabilitation | Erika Ernst, | | | 2019 | | | DO [address] [place] | | | | | | [place] [address] | | | | | | [phone] | | | | | | | | | | | | [facility] OT | | +--------+ + + + + | 02/25/ | Office | Primary Care | Erika Ernst, | | | 2019 | Visit | | DO [address] [place] | | | | | | [place] [address] | | | | | | [phone] | | | | | | | [...] | | | | | [place] [address] | | | | | | [phone] | | | | | | | | +--------+ + + + + | 02/27/ | Appointment | Radiology | Dhara, | | | 2019 | | | [address]WA[address] | | | | | | [address] [facility] [place], | | | | | | [place] [address] | | | | | | [phone] | | | | | | | [...] [address] | | | | | | [place] [address] | | | | | | [phone] | | | | | | | [...] [place] | | | | | | [address] | | | | | | [phone] | | | | | | | [...] | | | | | [place] [address] | | | | | | [phone] | | | | | | | | | | | | Azul Yeboah, | | | | | | MD [address] | | | | | | [place] [place] | | | | | | [place] [address] | | | | | | [phone] | | | | | | | [...] | | | | | | [place] [address] | | | | | | [phone] | | | | | | | | +--------+ + + + + documented as of this encounter Visit Diagnoses + + | Diagnosis | + + | TMJ (temporomandibular joint disorder) - Primary Temporomandibular joint disorders, | | unspecified | + + documented in this encounter
--- OUTSIDE RECORDS SUMMARY | ~2020-02-18 | XMS | Encounter Summary ---
Demographics + + + | Address | [address] | | | [place] [address] | + + + | Home Phone [...] Team Providers + +------+ + | Care Neon Electrician Name | Role | Phone | [...] | [place], [place] | [place] [address] | | | | | [address] | [phone] | | | | | [phone] | | | +--------+ + + + [...] | 04/12/20 | | | (VITAMIN D3) 24581 | mouth Once a week | tablet [...] | | | | | [place] [address] | | | | | | [phone] | | | | | | | | | | | | Julia Fisher, | | | | | | PT | | +--------+ + + + + | 02/18/ | Appointment | Rehabilitation | Erika Ernst, | | | 2019 | | | DO [address] | | | | | | [place] [address] | | | | | | [phone] | | | | | | | | | | | | Genesis Ayon, OT | | +--------+ + + + + | 02/25/ | Office | Primary Care | Erika Ernst, | | | 2019 | Visit | | DO [address] | | | | | | [place] [address] | | | | | | [phone] | | | | | | | [...] | | | | | [place] [address] | | | | | | [phone] | | | | | | | | +--------+ + + + + | 02/27/ | Appointment | Radiology | Dhara, | | | 2019 | | | [address]WA[address] Ross [address] | | [address] [place], | | | | | | [place] [address] | | | | | | [phone] | | | | | | | | +--------+ + + + + | 03/04/ | Appointment | Rehabilitation | Genesis Ayon OT | | | 2019 | | | | | +--------+ + + + + | 03/09/ | Office | Orthopedic Surgery | Jeffrey Gandhi, | | | 2019 | Visit | | [place] [address] [facility] | | | | | | [place] [address] | | | | | | [phone] | | | | | | | [...] [place] | | | | | | [address] | | | | | | [phone] | | | | | | | [...] | | | | | [place] [address] | | | | | | [phone] | | | | | | | | | | | | Azul Yeboah, | | | | | | MD [address] | | | | | | [place] | | | | | | [place] [address] | | | | | | [phone] | | | | | | | [...] | | | | | | [place] [address] | | | | | | [phone] | | | | | | | [...]
--- OUTSIDE RECORDS SUMMARY | ~2020-02-18 | XMS | Encounter Summary ---
Demographics + + + | Address | [address] | | | [place] [address] | + + + | Home Phone [...] Providers + +------+ + | Care Video Network Engineer Name | Role | Phone | + +------+ + | Erika Ernst DO | PCP | | + +------+ + Encounter Details +--------+ + + + + | Date | Type | Department | Care Team | Description | +--------+ + + + + | 12/06/ | [facility] | [place] | Daxa, Emily E, DPM | Sprain of deltoid | | 2019 | Encounter | HOSPITAL | [address] [place] | ligament of left | | | | ORTHOPAEDICS XRAY | [place] | ankle, sequela | | | | [address] [place] | [address] | | | | | [place], [place] | | | | | | [address] | | | | | | [phone] | | | +--------+ + + + [...] | 11/26/19 | | | (VITAMIN D3) 73816 | mouth Once a week | tablet [...] | | | | | [place] [address] | | | | | | [phone] | | | | | | | | | | | | Julia Fisher, | | | | | | PT | | +--------+ + + + + | 02/18/ | Appointment | Rehabilitation | Erika Ernst, | | | 2019 | | | DO [address] [place] | | | | | | [place] [address] | | | | | | [phone] | | | | | | | | | | | | Genesis Ayon OT | | +--------+ + + + + | 02/25/ | Office | Primary Care | Erika Ernst, | | | 2019 | Visit | | DO [address] | | | | | | [place] [address] | | | | | | [phone] | | | | | | | [...] | | | | | [place] [address] | | | | | | [phone] | | | | | | | | +--------+ + + + + | 02/27/ | Appointment | Radiology | Dhara, | | | 2019 | | | DWAINE Ross [address] | | | [address] [place], | | | | | | [place] [address] | | | | | | [phone] | | | | | | | | +--------+ + + + + | 03/04/ | Appointment | Rehabilitation | Genesis Ayon OT | | | 2019 | | | | | +--------+ + + + + | 03/09/ | Office | Orthopedic Surgery | Jeffrey Gandhi, | | | 2019 | Visit | | [address] | | | | | | [place] [address] | | | | | | [phone] | | | | | | | [...] [place] | | | | | | [address] | | | | | | [phone] | | | | | | | [...] | | | | | [place] [address] | | | | | | [phone] | | | | | | | | | | | | Azul Yeboah, | | | | | | MD [address] | | | | | | [place] | | | | | | [place] [address] | | | | | | [phone] | | | | | | | [...] | | | | | | [place] [address] | | | | | | [phone] | | | | | | | [...] IMAGING | | COMPARISON STUDY: None FINDINGS: Dunnell angle 46 degrees. | | | Talocalcaneal [...] LEFT 3 + | | VWHISTORY:pes planusCOMPARISON STUDY:NoneFINDINGS:Dunnell angle 46 degrees.Talocalcaneal | | angle 25 [...] | |None | | | |FINDINGS: | |Dunnell angle 46 degrees. | | | |Talocalcaneal [...]
--- OUTSIDE RECORDS SUMMARY | ~2020-02-18 | XMS | Encounter Summary ---
Demographics + + + | Address | [address] | | | [place] [address] | + + + | Home Phone [...] Team Providers + +------+ + | Care Gum Sprayer Name | Role | Phone | [...] Dx); | | 2018 | Visit | [facility] | [address] | Essential | | | | [facility]ICAL [facility] [address] | [place] [address] | hypertension; Iron | | | | [address] [place], | [phone] | deficiency; Acute | | | | [place] [address] | | cystitis with | | | | [phone] | | hematuria | +--------+---------+ + + [...] | | | | | [place] [address] | | | | | | [phone] | | | | | | | | | | | | Julia Fisher, | | | | | | PT | | +--------+ + + + + | 02/18/ | Appointment | Rehabilitation | Erika Ernst, | | | 2019 | | | DO [address] [place] | | | | | | [place] [address] | | | | | | [phone] | | | | | | | | | | | | Genesis Ayon OT | | +--------+ + + + + | 02/25/ | Office | Primary Care | Erika Ernst, | | | 2019 | Visit | | DO [address] [place] | | | | | | [place] [address] | | | | | | [phone] | | | | | | | [...] | | | | | [place] [address] | | | | | | [phone] | | | | | | | | +--------+ + + + + | 02/27/ | Appointment | Radiology | Dhara, | | | 2019 | | | [address] | | | | | | [address] [place], | | | | | | [place] [address] | | | | | | [phone] | | | | | | | | +--------+ + + + + | 03/04/ | Appointment | Rehabilitation | Genesis Ayon OT | | | 2019 | | | | | +--------+ + + + + | 03/09/ | Office | Orthopedic Surgery | Jeffrey Gandhi, | | | 2019 | Visit | | [facility] [facility] | | | | | | [place] [address] | | | | | | [phone] | | | | | | | [...] [place] | | | | | | [address] | | | | | | [phone] | | | | | | | [...] | | | | | [place] [address] | | | | | | [phone] | | | | | | | | | | | | Azul Yeboah, | | | | | | [address] | | | | | | [place] | | | | | | [place] [address] | | | | | | [phone] | | | | | | | [...] | | | | | | [place] [address] | | | | | | [phone] | | | | | | | [...] - 1.030 | [place] | | | [place], | | | [place] | | | [...] + | [place] [facility] | [address] | [place] | [phone] | | [facility] | | [address] | | | [facility] | [...] + | [place] [facility] | [address] | [place] | [phone] | | [facility] | | [address] | | | [facility] | | | | [...]
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
--- OUTSIDE RECORDS SUMMARY | ~2020-02-18 | XMS | Encounter Summary ---
Demographics + + + | Address | [address] | | | [place] [address] | + + + | Home Phone [...] Team Providers + +------+ + | Care Bulk Station Agent Name | Role | Phone | [...] | | | right ankle, | [place] [address] | [place] [address] | | | | | subsequent | Phone: | Phone: | | | | | encounter | [phone] | [phone] | | | | | Procedures | Fax: | Fax: | | | | | PT TREAT | [phone] | [phone] | + +--------+ + + + + [...] [address] [place] | [place] [address] | ankle, subsequent | | | | [place], [place] | [phone] | encounter (Primary | | | | [address] | | Dx) | | | | [phone] | Julia Peña, | | | | | | SOIL EXPERT | | +--------+ + + + + [...] of this encounter Progress Notes Julia Peña, SOIL EXPERT - 12/25/2019 1:00 PM PDTFormatting of this note might be differen t from the original. [facility]ER[facility] PT [address] [place] [address] Physical Therapy Daily Treatment Note Date: 12/25/2019 [...] | | | | | [place] [address] | | | | | | [phone] | | | | | | | | | | | | Julia Fisher, | | | | | | PT | | +--------+ + + + + | 02/18/ | Appointment | Rehabilitation | Erika Ernst, | | | 2019 | | | DO [address] | | | | | | [place] [address] | | | | | | [phone] | | | | | | | | | | | | Genesis Ayon OT | | +--------+ + + + + | 02/25/ | Office | Primary Care | Erika Ernst, | | | 2019 | Visit | | DO [address] | | | | | | [place] [address] | | | | | | [phone] | | | | | | | [...] | | | | | [place] [address] | | | | | | [phone] | | | | | | | | +--------+ + + + + | 02/27/ | Appointment | Radiology | Dhara, | | | 2019 | | | [address] | | | | | | 4TH [facility], | | | | | | [place] [address] | | | | | | [phone] | | | | | | | [...] [place] | | | | | | [place] [address] | | | | | | [phone] | | | | | | | [...] [place] | | | | | | [address] | | | | | | [phone] | | | | | | | [...] | | | | | [place] [address] | | | | | | [phone] | | | | | | | | | | | | Azul Yeboah, | | | | | | MD [address] | | | | | | [place] | | | | | | [place] [address] | | | | | | [phone] | | | | | | | [...] | | | | | | [place] [address] | | | | | | [phone] | | | | | | | | +--------+ + + + + documented as of this encounter Visit Diagnoses + + | Diagnosis | + + | Sprain of deltoid ligament of right ankle, subsequent encounter - Primary | + + documented in this encounter"
--- OUTSIDE RECORDS SUMMARY | ~2020-02-18 | XMS | Encounter Summary ---
Demographics + + + | Address | [address] | | | [place] [address] | + + + | Home Phone [...] | [facility] | [address] [place] | Authorization | | | | MEDICAL [facility] [address] | [place] [address] | | | | | [address] [facility], | [phone] | | | | | [place] [address] | | | | | | [phone] | | | +--------+ + + + [...] | | | | | [place] [address] | | | | | | [phone] | | | | | | | | | | | | Julia Fisher, | | | | | | PT | | +--------+ + + + + | 02/18/ | Appointment | Rehabilitation | Erika Ernst, | | | 2019 | | | DO [address] [place] | | | | | | [place] [address] | | | | | | [phone] | | | | | | | | | | | | Genesis Ayon OT | | +--------+ + + + + | 02/25/ | Office | Primary Care | Erika Ernst, | | | 2019 | Visit | | DO [address] [place] | | | | | | [place] [address] | | | | | | [phone] | | | | | | | [...] | | | | | [place] [address] | | | | | | [phone] | | | | | | | | +--------+ + + + + | 02/27/ | Appointment | Radiology | Dhara, | | | 2019 | | | [address] | | | | | | 4TH [facility] [place], | | | | | | [place] [address] | | | | | | [phone] | | | | | | | [...] | | | | | [place] [address] | | | | | | [phone] | | | | | | | [...] [place] | | | | | | [address] | | | | | | [phone] | | | | | | | [...] | | | | | [place] [address] | | | | | | [phone] | | | | | | | | | | | | Azul Yeboah, | | | | | | MD [address] | | | | | | [place] | | | | | | [place] [address] | | | | | | [phone] | | | | | | | [...] | | | | | | [place] [address] | | | | | | [phone] | | | | | | | | +--------+ + + + + documented as of this encounter Visit Diagnoses Not on filedocumented in this encounter"
--- OUTSIDE RECORDS SUMMARY | ~2020-02-18 | XMS | Encounter Summary ---
Demographics + + + | Address | [address] | | | [place] [address] | + + + | Home Phone [...] Providers + +------+ + | Care Residential Appraiser Name | Role | Phone | [...] | | | [facility] [address] | [place] [address] | | | | | [address] [place], | [phone] | | | | | [place] [address] | | | | | | [phone] | | | +--------+ + + + [...] | | | | | [place] [address] | | | | | | [phone] | | | | | | | | | | | | Julia Fisher, | | | | | | PT | | +--------+ + + + + | 02/18/ | Appointment | Rehabilitation | Erika Ernst, | | | 2019 | | | DO [address] | | | | | | [place] [address] | | | | | | [phone] | | | | | | | | | | | | Genesis Ayon, OT | | +--------+ + + + + | 02/25/ | Office | Primary Care | Erika Ernst, | | | 2019 | Visit | | DO [address] [place] | | | | | | [place] [address] | | | | | | [phone] | | | | | | | [...] | | | | | [place] [address] | | | | | | [phone] | | | | | | | | +--------+ + + + + | 02/27/ | Appointment | Radiology | Dhara, | | | 2019 | | | [address] | | | | | | 4TH [facility], | | | | | | [place] [address] | | | | | | [phone] | | | | | | | | +--------+ + + + + | 03/04/ | Appointment | Rehabilitation | Genesis Ayon OT | | | 2019 | | | | | +--------+ + + + + | 03/09/ | Office | Orthopedic Surgery | Jeffrey Gandhi, | | | 2019 | Visit | | [address] | | | | | | [place] [address] | | | | | | [phone] | | | | | | | [...] [place] | | | | | | [address] | | | | | | [phone] | | | | | | | [...] | | | | | [place] [address] | | | | | | [phone] | | | | | | | | | | | | Azul Yeboah, | | | | | | MD [address] | | | | | | [place] | | | | | | [place] [address] | | | | | | [phone] | | | | | | | [...] | | | | | | [place] [address] | | | | | | [phone] | | | | | | | | +--------+ + + + + documented as of this encounter Visit Diagnoses Not on filedocumented in this encounter"
--- OUTSIDE RECORDS SUMMARY | ~2020-02-18 | XMS | Encounter Summary ---
Demographics + + + | Address | [address] | | | [place] [address] | + + + | Home Phone [...] Providers + +------+ + | Care Technical Sme Name | Role | Phone | + +------+ + PCP | Unavailable | + +------+ + Encounter Details +--------+ + + + + | Date | Type | Department | Care Team | Description | +--------+ + + + + | 03/01/ | [facility] | Azul Yeboah | | | 2016 | Encounter | HOSPITAL NEUROLOGY | MD Marti [address] | | | | | CLIN[address] | [place] | | | | | [address], | [place] [address] | | | | | [place] [address] | [phone] | | | | | [phone] | | | +--------+ + + + [...] 2019 | | | DO [facility] | | | | | | [place] [address] | | | | | | [phone] | | | | | | | | | | | | Julia Fisher, | | | | | | PT | | +--------+ + + + + | 02/18/ | Appointment | Rehabilitation | Erika Ernst, | | | 2019 | | | DO [address] [place] | | | | | | [place] [address] | | | | | | [phone] | | | | | | | | | | | | Genesis Ayon OT | | +--------+ + + + + | 02/25/ | Office | Primary Care | Erika Ernst, | | | 2019 | Visit | | DO [address] [place] | | | | | | [place] [address] | | | | | | [phone] | | | | | | | [...] | | | | | [place] [address] | | | | | | [phone] | | | | | | | | +--------+ + + + + | 02/27/ | Appointment | Radiology | Dhara, | | | 2019 | | | [address] | | | | | | [address] [place], | | | | | | [place] [address] | | | | | | [phone] | | | | | | | [...] | | | | | [place] [address] | | | | | | [phone] | | | | | | | [...] [place] | | | | | | [address] | | | | | | [phone] | | | | | | | [...] | | | | | [place] [address] | | | | | | [phone] | | | | | | | | | | | | Azul Yeboah, | | | | | | MD [address] | | | | | | [place] | | | | | | [place] [address] | | | | | | [phone] | | | | | | | [...] | | | | | | [place] [address] | | | | | | [phone] | | | | | | | | +--------+ + + + + documented as of this encounter Visit Diagnoses Not on filedocumented in this encounter"
--- OUTSIDE RECORDS SUMMARY | ~2020-02-18 | XMS | Encounter Summary ---
Demographics + + + | Address | [address] | | | [place] [address] | + + + | Home Phone [...] Team Providers + +------+ + | Care Separations Scientist Name | Role | Phone | [...] [place] | | | | | | [address] | | | | | | [phone] | | | +--------+ + + + [...] | 04/12/20 | | | (VITAMIN D3) 48452 | mouth Once a week | tablet [...] | | | | | [place] [address] | | | | | | [phone] | | | | | | | [...] [address] | | | | | | [phone] | | | | | | | | | | | | [facility] | | +--------+ + + + + | 02/25/ | Office | Primary Care | Erika Ernst, | | | 2019 | Visit | | DO [address] [place] | | | | | | [place] [address] | | | | | | [phone] | | | | | | | [...] | | | | | [place] [address] | | | | | | [phone] | | | | | | | | +--------+ + + + + | 02/27/ | Appointment | Radiology | Dhara, | | | 2019 | | | [address] | | | | | | [address] [place], | | | | | | [place] [address] | | | | | | [phone] | | | | | | | [...] | | | | | | [place] [address] | | | | | | [phone] | | | | | | | [...] [place] | | | | | | [address] | | | | | | [phone] | | | | | | | [...] [address] | | | | | | [phone] | | | | | | | | | | | | Azul Yeboah, | | | | | | [address] | | | | | | [place] | | | | | | [place] [address] | | | | | | [phone] | | | | | | | [...] | | | | | | [place] [address] | | | | | | [phone] | | | | | | | [...]
--- OUTSIDE RECORDS SUMMARY | ~2020-02-18 | XMS | Encounter Summary ---
Demographics + + + | Address | [address] | | | [place] [address] | + + + | Home Phone [...] Team Providers + +------+ + | Care Checker Loader Name | Role | Phone | [...] | | | [place], [place] | [address] | | | | | [address] | | | | | | [phone] | | | +--------+ + + + [...] | | | | | [place] [address] | | | | | | [phone] | | | | | | | | | | | | Julia Fisher, | | | | | | PT | | +--------+ + + + + | 02/18/ | Appointment | Rehabilitation | Erika Ernst, | | | 2019 | | | DO [address] [place] | | | | | | [place] [address] | | | | | | [phone] | | | | | | | | | | | | [facility] OT | | +--------+ + + + + | 02/25/ | Office | Primary Care | Erika Ernst, | | | 2019 | Visit | | DO [address] [place] | | | | | | [place] [address] | | | | | | [phone] | | | | | | | [...] | | | | | [place] [address] | | | | | | [phone] | | | | | | | | +--------+ + + + + | 02/27/ | Appointment | Radiology | Dhara, | | | 2019 | | | [address] | | | | | | 4TH [facility], | | | | | | [place] [address] | | | | | | [phone] | | | | | | | [...] | | | | | [place] [address] | | | | | | [phone] | | | | | | | [...] [place] | | | | | | [address] | | | | | | [phone] | | | | | | | [...] | | | | | [place] [address] | | | | | | [phone] | | | | | | | | | | | | Azul Yeboah, | | | | | | MD [address] | | | | | | [place] | | | | | | [place] [address] | | | | | | [phone] | | | | | | | [...] | | | | | | [place] [address] | | | | | | [phone] | | | | | | | | +--------+ + + + + documented as of this encounter Visit Diagnoses Not on filedocumented in this encounter"
--- OUTSIDE RECORDS SUMMARY | ~2020-02-18 | XMS | Encounter Summary ---
Demographics + + + | Address | [address] | | | [place] [address] | + + + | Home Phone [...] Team Providers + +------+ + | Care Engine Assembler Name | Role | Phone | [...] | [facility] | [place] [address] | | | | | [address] [place], | [phone] | | | | | [place] [address] | | | | | | [phone] | | | +--------+--------+ + + + [...] | | | | | [place] [address] | | | | | | [phone] | | | | | | | | | | | | Julia Fisher, | | | | | | PT | | +--------+ + + + + | 02/18/ | Appointment | Rehabilitation | Erika Ernst, | | | 2019 | | | DO [address] | | | | | | [place] [address] | | | | | | [phone] | | | | | | | | | | | | [facility] | | +--------+ + + + + | 02/25/ | Office | Primary Care | Erika Ernst, | | | 2019 | Visit | | DO [address] | | | | | | [place] [address] | | | | | | [phone] | | | | | | | [...] | | | | | [place] [address] | | | | | | [phone] | | | | | | | | +--------+ + + + + | 02/27/ | Appointment | Radiology | Dhara, | | | 2019 | | | [address] | | | | | | [address] [facility], | | | | | | [place] [address] | | | | | | [phone] | | | | | | | [...] [place] | | | | | | [place] [address] | | | | | | [phone] | | | | | | | [...] [place] | | | | | | [address] | | | | | | [phone] | | | | | | | [...] | | | | | [place] [address] | | | | | | [phone] | | | | | | | | | | | | Azul Yeboah, | | | | | | MD [address] | | | | | | [address] [place] | | | | | | [place] [address] | | | | | | [phone] | | | | | | | [...] | | | | | | [place] [address] | | | | | | [phone] | | | | | | | | +--------+ + + + + documented as of this encounter Visit Diagnoses Not on filedocumented in this encounter"
--- OUTSIDE RECORDS SUMMARY | ~2020-02-18 | XMS | Encounter Summary ---
Demographics + + + | Address | [address] | | | [place] [address] | + + + | Home Phone [...] Providers + +------+ + | Care Laborer Powerhouse Name | Role | Phone | + [...] | | | [place], [place] | [address] | | | | | [address] | [phone] | | | | | [phone] | | | +--------+ + + + [...] | | | | | [place] [address] | | | | | | [phone] | | | | | | | | | | | | Julia Fisher, | | | | | | PT | | +--------+ + + + + | 02/18/ | Appointment | Rehabilitation | Erika Ernst, | | | 2019 | | | DO [address] [place] | | | | | | [place] [address] | | | | | | [phone] | | | | | | | | | | | | Genesis Ayon, OT | | +--------+ + + + + | 02/25/ | Office | Primary Care | Erika Ernst, | | | 2019 | Visit | | DO [address] [place] | | | | | | [place] [address] | | | | | | [phone] | | | | | | | [...] | | | | | [place] [address] | | | | | | [phone] | | | | | | | | +--------+ + + + + | 02/27/ | Appointment | Radiology | Dhara, | | | 2019 | | | DWAINE Ross [address] | | | | | | [address]TH [facility], | | | | | | [place] [address] | | | | | | [phone] | | | | | | | | +--------+ + + + + | 03/04/ | Appointment | Rehabilitation | Genesis Ayon OT | | | 2019 | | | | | +--------+ + + + + | 03/09/ | Office | Orthopedic Surgery | Jeffrey Gandhi, | | | 2019 | Visit | | [address] | | | | | | [place] [address] | | | | | | [phone] | | | | | | | [...] [place] | | | | | | [address] | | | | | | [phone] | | | | | | | [...] | | | | | [place] [address] | | | | | | [phone] | | | | | | | | | | | | Azul Yeboah, | | | | | | MD [address] | | | | | | [place] | | | | | | [place] [address] | | | | | | [phone] | | | | | | | [...] | | | | | | [place] [address] | | | | | | [phone] | | | | | | | | +--------+ + + + + documented as of this encounter Visit Diagnoses Not on filedocumented in this encounter"
--- OUTSIDE RECORDS SUMMARY | ~2020-02-18 | XMS | Encounter Summary ---
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 Electronically signed by: Emily Mittal DPM 12/06/2018 at 12:42 Note: Part of this report was transcribed using voice recognition software. Every effort wa s made to ensure accuracy. However, inadvertent computerized machine operator hop picker errors may be pre sent. CC: Erika [...] | | | DO [facility] | | | | | | [facility] [place] [address] | | | | | | [phone] | | | | | | | | | | | | Julia Fisher, | | | | | | PT | | +--------+ + + + + | 02/18/ | Appointment | Rehabilitation | Erika Ernst, | | | 2019 | | | DO [address] [place] | | | | | | [place] [address] | | | | | | [phone] | | | | | | | | | | | | Genesis Ayon OT | | +--------+ + + + + | 02/25/ | Office | Primary Care | Erika Ernst, | | | 2019 | Visit | | DO [address] [place] | | | | | | [place] [address] | | | | | | [phone] | | | | | | | [...] | | | | | [place] [address] | | | | | | [phone] | | | | | | | | +--------+ + + + + | 02/27/ | Appointment | Radiology | Dhara, | | | 2019 | | | DWAINE Ross [address] | | | | | | [address] [facility] [place], | | | | | | [place] [address] | | | | | | [phone] | | | | | | | [...] | | | | | [place] [address] | | | | | | [phone] | | | | | | | [...] [place] | | | | | | [address] | | | | | | [phone] | | | | | | | [...] | | | | | [place] [address] | | | | | | [phone] | | | | | | | | | | | | Azul Yeboah, | | | | | | MD [address] | | | | | | [place] | | | | | | [place] [address] | | | | | | [phone] | | | | | | | [...] [address] | | | | | | [phone] | | | | | | | [...]
--- OUTSIDE RECORDS SUMMARY | ~2020-02-18 | XMS | Encounter Summary ---
Demographics + + + | Address | [address] | | | [place] [address] | + + + | Home Phone [...] Providers + +------+ + | Care Ticket Collector Name | Role | Phone | [...] | | | | syndrome | [place] [address] | [place], [place] | | | | | | Phone: | [address] Phone: | | | | | | [phone] | [phone] | | | | | | Fax: | Fax: | | | | | | [phone] | [phone] | +--------+ + + + + + [...] | | | DR [place], | [address] | | | | | [place] [address] | | | | | | [phone] | | | +--------+---------+ + + + [...] be different from the original. Patient Instructions [facility] Neurology Clinic Dr. Luis Nichole, Neurologist Date:08/12/2019 [...] le, and scrabble, other puzzle games like Aula 7, H-careng. Play computer/mobile applications such as [employer] and MIND GAMES Neurologically improving Continue with Ms Boston LCSW in [place] Any Questions please call BAKARI Terrell or Dr. Nichole at [facility] Neurology Clinic Coping with Concussion Concussion [...] bath or taking a hot shower. Take rtvy-ctj-abvaxun acetaminophen to relieve headache pain. Take them [...] treatment y ou need. Date Last Reviewed: 10/02/201719999939-1649 [employer]. [address] [place] [address]. All righ ts reserved. This information is not intended as a substitute for professional medical care. Always follow your healthcare professional's instructions. Problems with Thinking Skills After Brain Injury One of the brain s main roles is to allow a person to think, remember, reason, and bartenders. After a brain injury, a person may be less able to coordinate sequential activities (apraxi a), process thought (agnosia), or use language (aphasia). At first, therapy may be provided by medical record specialist, physical therapists, and occupational therapists,but it [...] Favorite clothes Posters Music Date Last Reviewed: 09/01/201719994198-[address] [employer] [place] [address], [place] [address]. All righ ts reserved. This information is [...] anxiety symptoms. You are not alone. Your [facility] provider is aware of the risks [...] for anxiety and TBI. Date Last Reviewed: 04/01/201619991578-[address] [employer] [place] [address]. All righ ts reserved. This information is [...] TBI and severe TBI. Your [facility] hcare team will decide if your TBI [...] primo e to heal. Date Last Reviewed: 09/01/201719994812-2660 [employer]. [address] [place] [address], [place] [address]. All [facility] ts reserved. This information is not intended [...] have had a TBI. Date Last Reviewed: 10/02/201719996241-[address] [employer] [place] [address], [place] [address]. All righ ts reserved. This information is not intended as a substitute for professional medical care. Always follow your healthcare professional's instructions. 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 [facility] hologic evaluation was performed by Olga Rajput, PHD. I discussed with Miss Mason that s jessie she is clinically improving taking no medications at this time but she is to follow-up with her psychologist, Ms Mead, RN DOCUMENTATION SPECIALIST in [facility]. She has been using [employer] for [...] CEREBELLAR EXAMINATION: There is no dysmetria on ukjfcb-ub-gctv test. MISCELLANEOUS EXAM: Well Kept, well nourished, [...] le, and scrabble, other puzzle games like K94 Discoveriesu, MahUpCityng. Play computer/mobile applications such as [employer] and Tavern GAMES Continue with Ms MeadMIGUELINA in [place] Any Questions please call BAKARI Terrell or Dr. Nichole at [facility] Neurology Clinic Luis Nichole MD08/12/201911:55 AM Electronically signed NOTE: Part of this report was transcribed using voice recognition software. Every effort was made to ensure accuracy. However, inadvertent computerize campground hand errors may be present documented in this enc ounter Plan of Treatment +--------+ + + + + | Date | Type | Specialty | Care Team | Description | +--------+ + + + + | 02/18/ | Appointment | Rehabilitation | Erika Ernst, | | | 2019 | | | DO [address] | | | | | | [place] [address] | | | | | | [phone] | | | | | | | | | | | | Julia Fisher, | | | | | | PT | | +--------+ + + + + | 02/18/ | Appointment | Rehabilitation | Erika Ernst, | | | 2019 | | | DO [address] [place] | | | | | | [place] [address] | | | | | | [phone] | | | | | | | | | | | | Genesis Ayon OT | | +--------+ + + + + | 02/25/ | Office | Primary Care | Erika Ernst, | | | 2019 | Visit | | DO [address] [place] | | | | | | [place] [address] | | | | | | [phone] | | | | | | | [...] | | | | | [place] [address] | | | | | | [phone] | | | | | | | | +--------+ + + + + | 02/27/ | Appointment | Radiology | Dhara, | | | 2019 | | | DWAINE Ross [address] | | | | | | [address] [facility], | | | | | | [place] [address] | | | | | | [phone] | | | | | | | | +--------+ + + + + | 03/04/ | Appointment | Rehabilitation | Genesis Ayon OT | | | 2019 | | | | | +--------+ + + + + | 03/09/ | Office | Orthopedic Surgery | Jeffrey Gandhi, | | | 2019 | Visit | | [address] | | | | | | [place] [address] | | | | | | [phone] | | | | | | | [...] [place] | | | | | | [address] | | | | | | [phone] | | | | | | | [...] [address] | | | | | | [phone] | | | | | | | | | | | | Azul Yeboah, | | | | | | MD [address] | | | | | | [place] | | | | | | [place] [address] | | | | | | [phone] | | | | | | | [...] | | | | | | [place] [address] | | | | | | [phone] | | | | | | | [...]
--- OUTSIDE RECORDS SUMMARY | ~2020-02-18 | XMS | Encounter Summary ---
Demographics + + + | Address | [address] | | | [place] [address] | + + + | Home Phone [...] Team Providers + +------+ + | Care Mason Foreman/Superintendant Name | Role | Phone | + [...] | 2018 | | [facility] | HEAT TREAT INSPECTOR | | | | | MEDICAL CLINIC [address] | | | | | | [address] [facility] [place], | | | | | | [place] [address] | | | | | | [phone] | | | +--------+ + + + [...] | | | | | [place] [address] | | | | | | [phone] | | | | | | | | | | | | Julia Fishre, | | | | | | PT | | +--------+ + + + + | 02/18/ | Appointment | Rehabilitation | Erika Ernst, | | | 2019 | | | DO [address] [place] | | | | | | [place] [address] | | | | | | [phone] | | | | | | | | | | | | Genesis Ayon OT | | +--------+ + + + + | 02/25/ | Office | Primary Care | Erika Ernst, | | | 2019 | Visit | | DO [address] [place] | | | | | | [place] [address] | | | | | | [phone] | | | | | | | [...] | | | | | [place] [address] | | | | | | [phone] | | | | | | | | +--------+ + + + + | 02/27/ | Appointment | Radiology | Dhara, | | | 2019 | | | DWAINE Ross [address] | [address] [place], | | | | | | [place] [address] | | | | | | [phone] | | | | | | | [...] | | | | [place] [address] | | | | | | [phone] | | | | | | | [...] [place] | | | | | | [address] | | | | | | [phone] | | | | | | | [...] | | | | | [place] [address] | | | | | | [phone] | | | | | | | | | | | | Azul Yeboah, | | | | | | [address] | | | | | | [place] | | | | | | [place] [address] | | | | | | [phone] | | | | | | | [...] | | | | | | [place] [address] | | | | | | [phone] | | | | | | | | +--------+ + + + + documented as of this encounter Visit Diagnoses Not on filedocumented in this encounter"
--- OUTSIDE RECORDS SUMMARY | ~2020-02-18 | XMS | Encounter Summary ---
Demographics + + + | Address | [address] | | | [place] [address] | + + + | Home Phone [...] Team Providers + +------+ + | Care Trimmer And Reinforcer Name | Role | Phone | + [...] | | n | knee | [place], | [place], | | | | | Procedures | [place] [address] | [place] [address] | | | | | PT EVAL | Phone: | Phone: | | | | | | [phone] | [phone] | | | | | | Fax: | Fax: | | | | | | [phone] | [phone] | +--------+ + + + + + [...] [address] [place] | [place] [address] | | | | | [place], [place] | [phone] | | | | | [address] | | | | | | [phone] | Julia Fisher, | | | | [...] | 11/26/19 | | | (VITAMIN D3) [address] | mouth Once a week | tablet | | 19 | 9 | | units TABS | for 16 doses. | | | | | + + + +---------+ + + | D3-50 75837 units | | | 0 | 12/13/19 [...] Last Name Julia Fisher, PT Facility Name [facility] Billing Provider HENNY [id number] Provider Address, [facility] Code [facility] [place] [address] Billing Provider SHIRA [id number] PATIENT INFORMATION All sections must be completed Patient Last Name, First Name NOBLIT,ANDREA ABBEY Date of 1990 Mailing Address [address] [place] [address] Coverage Information Payor/Plan Subscriber Name Rel Member # Group # Absolute Antibody CO* ANDREA SUH CLA* [id number] [address] [address] CLINICAL INFORMATION Primary ICD/Diagnosis Code: Encounter Diagnoses [...] nelson PT - 12/13/2018 4:[address] [facility] PT [address] [place] [address] Physical Therapy Initial Assessment Date: 12/13/2018 Patient [...] Maternal Grandmother Heart attack Maternal Aunt [place] Developmental History Allergies Allergen Reactions Escitalopram Palpitations [...] Mobility: LLE Joint Mobility L Patella Medial [place]: normal L Patella Lateral [place]: normal L Patella Inferior [place]: normal L Patella Superior [place]: normal RLE Joint Mobility R Patella Medial [place]: normal R Patella Lateral [place]: normal R Patella Inferior [place]: normal R Patella Superior [place]: normal Special Tests: Lower Extremity Tests Lower [...] Understanding Therapy Interventions HEP: HEP: Wall sits [id number] holds, Bridging 3 x 10 reps, Side steps GTB at ankles 3 x 30 . PT Interventions: Intervention #1 PT INTERVENTION 1: TE (15min) Wall sits [id number] holds, Bridging x 10 reps, Side steps [...] Certification To: 02/07/2019 Treatment Plan/Interventions PT EvaluationPT Re-[id number] - Therapeutic Ermcgmkr68059 - Neuromuscular Reeducation9 7116 - Gait Vavsgvek12162 - Therapeutic Dypxaafrun54959 - Aquatic Therapy/Uzoidjwxk54588 - U juextxosr76758 - Electrical Stimulation, Jddibrcndu55123 - Electrical Stimulation, Attended6 4550 - TENS Application/Clqxlavjdcx35681 - Manual Therapy Patient and/or family has [...] | | | | | [place] [address] | | | | | | [phone] | | | | | | | | | | | | Julia Fisher, | | | | | | PT | | +--------+ + + + + | 02/18/ | Appointment | Rehabilitation | Erika Ernst, | | | 2019 | | | DO [address] [place] | | | | | | [place] [address] | | | | | | [phone] | | | | | | | | | | | | Genesis Ayon OT | | +--------+ + + + + | 02/25/ | Office | Primary Care | Erika Ernst, | | | 2019 | Visit | | [address] [place] [address] | | | | | | [place] [address] | | | | | | [phone] | | | | | | | [...] | | | | | [place] [address] | | | | | | [phone] | | | | | | | | +--------+ + + + + | 02/27/ | Appointment | Radiology | Dhara, | | | 2019 | | | DWAINE Ross [address] | | | [address] [place], | | | | | | [place] [address] | | | | | | [phone] | | | | | | | | +--------+ + + + + | 03/04/ | Appointment | Rehabilitation | Genesis Ayon OT | | | 2019 | | | | | +--------+ + + + + | 03/09/ | Office | Orthopedic Surgery | Jeffrey Gandhi, | | | 2019 | Visit | | [address] [facility] | | | | | | [place] [address] | | | | | | [phone] | | | | | | | [...] [place] | | | | | | [address] | | | | | | [phone] | | | | | | | [...] | | | | | [place] [address] | | | | | | [phone] | | | | | | | | | | | | Azul Yeboah, | | | | | | [address] | | | | | | [place] | | | | | | [place] [address] | | | | | | [phone] | | | | | | | [...] | | | | | | [place] [address] | | | | | | [phone] | | | | | | | [...]
--- OUTSIDE RECORDS SUMMARY | ~2020-02-18 | XMS | Encounter Summary ---
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 Patient was seen in [facility] on 11/26/2019 and was diagnosed with a viral URI with cough (pharyngitis, ear pressure ). She was also given Spiriva and Prednisone (5 days) treatments by her plant breeder on 11/25/19. She is reporting that her [...] She finished a steroid burst from her welding machine operator/tender a couple days ago and has noticed [...] Electronically signed by: CHASE Edward 12/02/20193:28 PM [facility] Note: Part of this report was transcribed using voice recognition software. Every effort wa s made to ensure accuracy. However, inadvertent computerized product consultant errors may be pre sent. This documentation prepared by Leslie Bowles medical clerk. All aspects of this chart reviewed for accuracy and content by Alem Guerrero SENIOR MECHANICAL TECHNICIAN-C at the date and time of service. [...] | | | | | [place] [address] | | | | | | [phone] | | | | | | | | | | | | Julia Fisher, | | | | | | PT | | +--------+ + + + + | 02/18/ | Appointment | Rehabilitation | Erika Ernst, | | | 2019 | | | DO [address] [place] | | | | | | [place] [address] | | | | | | [phone] | | | | | | | | | | | | Genesis Ayon OT | | +--------+ + + + + | 02/25/ | Office | Primary Care | Erika Ernst, | | | 2019 | Visit | | DO [address] [place] | | | | | | [place] [address] | | | | | | [phone] | | | | | | | [...] | | | | | [place] [address] | | | | | | [phone] | | | | | | | | +--------+ + + + + | 02/27/ | Appointment | Radiology | Dhara, | | | 2019 | | | DWAINE Ross [address] | [address] [place], | | | | | | [place] [address] | | | | | | [phone] | | | | | | | | +--------+ + + + + | 03/04/ | Appointment | Rehabilitation | Genesis Ayon OT | | | 2019 | | | | | +--------+ + + + + | 03/09/ | Office | Orthopedic Surgery | Jeffrey Gandhi, | | | 2019 | Visit | | [place] [address] [facility] | | | | | | [place] [address] | | | | | | [phone] | | | | | | | [...] [place] | | | | | | [address] | | | | | | [phone] | | | | | | | [...] | | | | | [place] [address] | | | | | | [phone] | | | | | | | | | | | | Azul Yeboah, | | | | | | [address] | | | | | | [place] | | | | | | [place] [address] | | | | | | [phone] | | | | | | | [...] | | | | | | [place] [address] | | | | | | [phone] | | | | | | | [...]
--- OUTSIDE RECORDS SUMMARY | ~2020-02-18 | XMS | Encounter Summary ---
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 [...] Surgeon: Fani Mahajan MD; Location: [facility] TENDON RELEASE TONSILLECTOMY WISDOM TOOTH EXTRACTION Family History Problem Relation Age of Onset Other (see comment) Mother gallbladder disease Hypertension Father Other (see comment) Father arrhymthmia Breast cancer Sister Cervical cancer Maternal Grandmother Heart attack Maternal Aunt [place] Social History Socioeconomic History Marital status: Single [...] and their vital signs recorded by my educational assistant today, a s found in this chart note. Electronically signed by: Emily Mittal DPM 12/06/2018 at 9:59 Note: Part of this report was transcribed using voice recognition software. Every effort wa s made to ensure accuracy. However, inadvertent computerized plant anatomy teacher errors may be pre sent. CC: Erika [...] | | | | | [place] [address] | | | | | | [phone] | | | | | | | | | | | | Julia Fisher, | | | | | | PT | | +--------+ + + + + | 02/18/ | Appointment | Rehabilitation | Erika Ernst, | | | 2019 | | | DO [address] [place] | | | | | | [place] [address] | | | | | | [phone] | | | | | | | | | | | | Genesis Ayon, OT | | +--------+ + + + + | 02/25/ | Office | Primary Care | Erika Ernst, | | | 2019 | Visit | | DO [address] [place] | | | | | | [place] [address] | | | | | | [phone] | | | | | | | [...] | | | | | [place] [address] | | | | | | [phone] | | | | | | | | +--------+ + + + + | 02/27/ | Appointment | Radiology | Dhara, | | 2019 | | | DWAINE Ross [address] | | | | | | [address] [place], | | | | | | [place] [address] | | | | | | [phone] | | | | | | | [...] ST | | | | | | [place] [address] | | | | | | [phone] | | | | | | | [...] [place] | | | | | | [address] | | | | | | [phone] | | | | | | | [...] | | | | | [place] [address] | | | | | | [phone] | | | | | | | | | | | | Azul Yeboah, | | | | | | [address] | | | | | | [place] | | | | | | [place] [address] | | | | | | [phone] | | | | | | | [...] | | | | | | [place] [address] | | | | | | [phone] | | | | | | | [...]
--- OUTSIDE RECORDS SUMMARY | ~2020-02-18 | XMS | Encounter Summary ---
Demographics + + + | Address | [address] | | | [place] [address] | + + + | Home Phone [...] Team Providers + +------+ + | Care Tiler Name | Role | Phone | + [...] | Diagnoses | Klever, | [facility] | | | Services | Surgery | Sprain of | Erika A, DO | Orthopedic | | | Required | | right hand, | [address] | [address] | | | | | subsequent | [place], | [place] | | | | | encounter | [place] | [place], [place] | | | | | Procedures | Phone: | [address] | | | | | OV | [phone] | Phone: | | | | | | Fax: | [phone] | | | | | | [phone] | Fax: | | | | | | | [phone] | +--------+ + + + + + [...] | | [place] | [place] [address] | tenosynovectomy on | | | | [address] | [phone] | 03/20/19 | | | | [phone] | | | +--------+---------+ + + + [...] E.C.U. Tendon; Surgeon: Inocencio Noriega MD; Location: [facility] SURGERY RIGHT KIDNER PROCEDURE 01/20/2016 Surgeon: Fani Mahajan MD; Location: [facility] TENDON RELEASE TONSILLECTOMY WISDOM TOOTH EXTRACTION Family History Problem Relation Age of Onset Other (see comment) Mother gallbladder disease Diabetes Mother Heart disease Mother Hypertension Father Other (see comment) Father arrhymthmia Breast cancer Sister Breast cancer Maternal Grandmother Heart attack Maternal Aunt [place] Hypertension Maternal Uncle Social History Tobacco Use [...] made to ensure accuracy. However, inadvertent computerized gas appliance installer errors may be pre sent. This documentation prepared by Christel Sanz medical billing assistant. All aspects of this chart re viewed [...] | | | | | [place] [address] | | | | | | [phone] | | | | | | | | | | | | Julia Fisher, | | | | | | PT | | +--------+ + + + + | 02/18/ | Appointment | Rehabilitation | Erika Ernst, | | | 2019 | | | DO [address] [place] | | | | | | [place] [address] | | | | | | [phone] | | | | | | | | | | | | Genesis Ayon, SUSAN | | +--------+ + + + + | 02/25/ | Office | Primary Care | Erika Ernst, | | | 2019 | Visit | | DO [address] [place] [address] | | | | | | [place] [address] | | | | | | [phone] | | | | | | | [...] | | | | | [place] [address] | | | | | | [phone] | | | | | | | | +--------+ + + + + | 02/27/ | Appointment | Radiology | Dhara, | | | 2019 | | | [address] | | [address] [place], | | | | | | [place] [address] | | | | | | [phone] | | | | | | | | +--------+ + + + + | 03/04/ | Appointment | Rehabilitation | Genesis Ayon OT | | | 2019 | | | | | +--------+ + + + + | 03/09/ | Office | Orthopedic Surgery | Jeffrey Gandhi, | | | 2019 | Visit | | [address] | | | | | | [place] [address] | | | | | | [phone] | | | | | | | [...] [place] | | | | | | [address] | | | | | | [phone] | | | | | | | [...] | | | | | [place] [address] | | | | | | [phone] | | | | | | | | | | | | Azul Yeboah, | | | | | | MD [address] | | | | | | [place] | | | | | | [place] [address] | | | | | | [phone] | | | | | | | [...] | | | | | | [place] [address] | | | | | | [phone] | | | | | | | [...]
--- OUTSIDE RECORDS SUMMARY | ~2020-02-18 | XMS | Encounter Summary ---
Demographics + + + | Address | [address] | | | [place] [address] | + + + | Home Phone [...] Team Providers + +------+ + | Care Tap And Die Maker Technician Name | Role | Phone | [...] | | | | severe | [place] [address] | [place] | | | | | obesity due | Phone: | [phone] | | | | | to excess | [phone] | Phone: | | | | | calories | Fax: | [phone] | | | | | without | [phone] | Fax: | | | | | serious | | [phone] | | | | | comorbidity | [...] | | | | | | | NM MED NUTR | | | | | | | THER, 1ST, | | | | | | | INDIV, EA 15 | | | | | | | MIN NM MED | | | | | | [...] | SERVICES [address] | [place] [address] | obesity (HCC); BMI | | | | DR [place] | [phone] | 50.0-59.9, adult | | | | [address] | | (HCC); Dietary | | | | [phone] | Janel Webster, | counseling and | [...] | 11/26/19 | | | (VITAMIN D3) 00597 | mouth Once a week | tablet [...] | | | | | [place] [address] | | | | | | [phone] | | | | | | | | | | | | Julia Fisher, | | | | | | PT | | +--------+ + + + + | 02/18/ | Appointment | Rehabilitation | Erika Ernst, | | | 2019 | | | DO [address] [place] | | | | | | [place] [address] | | | | | | [phone] | | | | | | | | | | | | Genesis Ayon OT | | +--------+ + + + + | 02/25/ | Office | Primary Care | Erika Ernst, | | | 2019 | Visit | | DO [address] [place] | | | | | | [place] [address] | | | | | | [phone] | | | | | | | [...] | | | | | [place] [address] | | | | | | [phone] | | | | | | | | +--------+ + + + + | 02/27/ | Appointment | Radiology | Dhara | | | 2019 | | | DWAINE Ross [address] | [address] [place], | | | | | | [place] [address] | | | | | | [phone] | | | | | | | | +--------+ + + + + | 03/04/ | Appointment | Rehabilitation | Genesis Ayon OT | | | 2019 | | | | | +--------+ + + + + | 03/09/ | Office | Orthopedic Surgery | Jeffrey Gandhi, | | | 2019 | Visit | | [place] [address] [facility] | | | | | | [place] [address] | | | | | | [phone] | | | | | | | [...] [place] | | | | | | [address] | | | | | | [phone] | | | | | | | [...] | | | | | [place] [address] | | | | | | [phone] | | | | | | | | | | | | Azul Yeboah, | | | | | | MD [address] | | | | | | [place] | | | | | | [place] [address] | | | | | | [phone] | | | | | | | [...] | | | | | | [place] [address] | | | | | | [phone] | | | | | | | [...]
--- OUTSIDE RECORDS SUMMARY | ~2020-02-18 | XMS | Encounter Summary ---
Demographics + + + | Address | [address] | | | [place] [address] | + + + | Home Phone [...] Providers + +------+ + | Care Tool Salvage Worker Name | Role | Phone | + +------+ + | Erika Ernst DO | PCP | | + +------+ + Encounter Details +--------+ + + + + | Date | Type | Department | Care Team | Description | +--------+ + + + + | 07/04/ | Abstract | [place] [facility] | Erika Ernst, | | | 2017 | | [address] | | | | | MEDICAL [facility] [address] | [place] [address] | | | | | 4TH [facility] [place], | [phone] | | | | | [place] [address] | | | | | | [phone] | | | +--------+ + + + [...] | | | | | [place] [address] | | | | | | [phone] | | | | | | | | | | | | Julia Fisher, | | | | | | PT | | +--------+ + + + + | 02/18/ | Appointment | Rehabilitation | Erika Ernst, | | | 2019 | | | DO [address] [place] | | | | | | [place] [address] | | | | | | [phone] | | | | | | | | | | | | Genesis Ayon, SUSAN | | +--------+ + + + + | 02/25/ | Office | Primary Care | Erika Ernst, | | | 2019 | Visit | | DO [address] [place] [address] | | | | | | [place] [address] | | | | | | [phone] | | | | | | | [...] | | | | | [place] [address] | | | | | | [phone] | | | | | | | | +--------+ + + + + | 02/27/ | Appointment | Radiology | Dhara, | | 2019 | | | DWAINE Ross [address] [place], | | | | | | [place] [address] | | | | | | [phone] | | | | | | | | +--------+ + + + + | 03/04/ | Appointment | Rehabilitation | Genesis Ayon OT | | 2019 | | | | | +--------+ + + + + | 03/09/ | Office | Orthopedic Surgery | Jeffrey Gandhi, | | | 2019 | Visit | | [address] | | | | | | [place] [address] | | | | | | [phone] | | | | | | | [...] [place] | | | | | | [address] | | | | | | [phone] | | | | | | | [...] | | | | | [place] [address] | | | | | | [phone] | | | | | | | | | | | | Azul Yeboah, | | | | | | MD [address] | | | | | | [place] | | | | | | [place] [address] | | | | | | [phone] | | | | | | | [...] | | | | | | [place] [address] | | | | | | [phone] | | | | | | | [...]
--- OUTSIDE RECORDS SUMMARY | ~2020-02-18 | XMS | Encounter Summary ---
Demographics + + + | Address | [address] | | | [place] [address] | + + + | Home Phone [...] Team Providers + +------+ + | Care Band Log Mill And Carriage Operator Name | Role | Phone | [...] [address] [place] | [place] [address] | | | | | [place], [place] | [phone] | | | | | [address] | | | | | | [phone] | | | +--------+ + + + [...] | | | | | [place] [address] | | | | | | [phone] | | | | | | | | | | | | Julia Fisher, | | | | | | PT | | +--------+ + + + + | 02/18/ | Appointment | Rehabilitation | Erika Ernst, | | | 2019 | | | DO [address] [place] | | | | | | [place] [address] | | | | | | [phone] | | | | | | | | | | | | Genesis Ayon OT | | +--------+ + + + + | 02/25/ | Office | Primary Care | Erika Ernst, | | | 2019 | Visit | | DO [address] [place] | | | | | | [place] [address] | | | | | | [phone] | | | | | | | [...] | | | | | [place] [address] | | | | | | [phone] | | | | | | | | +--------+ + + + + | 02/27/ | Appointment | Radiology | Dhara, | | 2019 | | | DWAINE Ross [address] [place], | | | | | | [place] [address] | | | | | | [phone] | | | | | | | | +--------+ + + + + | 03/04/ | Appointment | Rehabilitation | Genesis Ayon OT | | | 2019 | | | | | +--------+ + + + + | 03/09/ | Office | Orthopedic Surgery | Jeffrey Gandhi, | | | 2019 | Visit | | [address] [facility] | | | | | | [place] [address] | | | | | | [phone] | | | | | | | [...] [place] | | | | | | [address] | | | | | | [phone] | | | | | | | | +--------+ + + + + | 03/25/ | Appointment | Rehabilitation | Genessi Ayon OT | | | 2020 | | | | | +--------+ + + + + | 04/08/ | Office | Neurology | Erika Ernst, | | | 2019 | Visit | | DO [address] [place] | | | | | | [place] [address] | | | | | | [phone] | | | | | | | | | | | | Azul Yeboah, | | | | | | MD [address] | | | | | | [place] | | | | | | [place] [address] | | | | | | [phone] | | | | | | | [...] | | | | | | [place] [address] | | | | | | [phone] | | | | | | | [...]
--- OUTSIDE RECORDS SUMMARY | ~2020-02-18 | XMS | Encounter Summary ---
Demographics + + + | Address | [address] | | | [place] [address] | + + + | Home Phone [...] Providers + +------+ + | Care Embedded Engineer Name | Role | Phone | + +------+ + PCP | Unavailable | + +------+ + Encounter Details +--------+ + + + + | Date | Type | Department | Care Team | Description | +--------+ + + + + | 05/08/ | [facility] | Spenser Roberts NP | | | 2014 | Encounter | [facility] | [address], | | | | | MEDICAL CL[facility] [address] | [place] [address] | | | | | [address]TH [facility], | [phone] | | | | | [place] [address] | | | | | | [phone] | | | +--------+ + + + [...] | | | | | [place] [address] | | | | | | [phone] | | | | | | | | | | | | Julia Fisher, | | | | | | PT | | +--------+ + + + + | 02/18/ | Appointment | Rehabilitation | Erika Ernst, | | | 2019 | | | DO [address] [place] | | | | | | [place] [address] | | | | | | [phone] | | | | | | | | | | | | Genesis Ayon OT | | +--------+ + + + + | 02/25/ | Office | Primary Care | Erika Ernst, | | | 2019 | Visit | | DO [address] [place] | | | | | | [place] [address] | | | | | | [phone] | | | | | | | [...] | | | | | [place] [address] | | | | | | [phone] | | | | | | | | +--------+ + + + + | 02/27/ | Appointment | Radiology | Dhara, | | | 2019 | | | [address] | | | | | | 4TH [facility], | | | | | | [place] [address] | | | | | | [phone] | | | | | | | [...] | | | | | [place] [address] | | | | | | [phone] | | | | | | | [...] | | | | | [place] | | | | | | [address] | | | | | | [phone] | | | | | | | [...] | | | | | [place] [address] | | | | | | [phone] | | | | | | | | | | | | Azul Yeboah, | | | | | | MD [address] | | | | | | [place] | | | | | | [place] [address] | | | | | | [phone] | | | | | | | [...] | | | | | | [place] [address] | | | | | | [phone] | | | | | | | | +--------+ + + + + documented as of this encounter Visit Diagnoses Not on filedocumented in this encounter"
--- OUTSIDE RECORDS SUMMARY | ~2020-02-18 | XMS | Encounter Summary ---
Demographics + + + | Address | [address] | | | [place] [address] | + + + | Home Phone [...] Providers + +------+ + | Care Compliance Quality Performance Analyst Name | Role | Phone | [...] [place] | | | | | | [address] | | | | | | [phone] | | | +--------+ + + + [...] | | | | | [place] [address] | | | | | | [phone] | | | | | | | | | | | | Julia Fisher, | | | | | | PT | | +--------+ + + + + | 02/18/ | Appointment | Rehabilitation | Erika Ernst, | | | 2019 | | | DO [address] [place] | | | | | | [place] [address] | | | | | | [phone] | | | | | | | | | | | | Genesis Ayon OT | | +--------+ + + + + | 02/25/ | Office | Primary Care | Erika Ernst, | | | 2019 | Visit | | DO [address] [place] | | | | | | [place] [address] | | | | | | [phone] | | | | | | | [...] | | | | | [place] [address] | | | | | | [phone] | | | | | | | | +--------+ + + + + | 02/27/ | Appointment | Radiology | Dhara, | | | 2019 | | | [address]WA[address] [place], | | | | | | [place] [address] | | | | | | [phone] | | | | | | | | +--------+ + + + + | 03/04/ | Appointment | Rehabilitation | Genesis Ayon OT | | | 2019 | | | | | +--------+ + + + + | 03/09/ | Office | Orthopedic Surgery | Jeffrey Gandhi, | | | 2019 | Visit | | [place] [address] | | | | | | [place] [address] | | | | | | [phone] | | | | | | | [...] [place] | | | | | | [address] | | | | | | [phone] | | | | | | | [...] | | | | | [place] [address] | | | | | | [phone] | | | | | | | | | | | | Azul Yeboah, | | | | | | MD [address] | | | | | | [place] | | | | | | [place] [address] | | | | | | [phone] | | | | | | | [...] | | | | | | [place] [address] | | | | | | [phone] | | | | | | | [...]
--- OUTSIDE RECORDS SUMMARY | ~2020-02-18 | XMS | Encounter Summary ---
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 Subjective: HPI: Patient presents to the [facility] for migraine. Yesterday morning she woke [...] normal. Entered by Marissa Bautista CNA 2, [facility], acting as scribe for Brandi Pitts DO. The documentation recorded by the scribe accurately reflects the service I personally perfo [facility] and the decisions made by me. Electronically signed by: Brandi Pitts DO 08/21/2019 9:33 AM Note: Part of this report was transcribed using voice recognition software. Every effort wa s made to ensure accuracy. However, inadvertent computerized blast furnace supervisor errors may be pre sent. documented [...] | | | | | [place] [address] | | | | | | [phone] | | | | | | | | | | | | Julia Fisher, | | | | | | PT | | +--------+ + + + + | 02/18/ | Appointment | Rehabilitation | Erika Ernst, | | | 2019 | | | DO [address] [place] | | | | | | [place] [address] | | | | | | [phone] | | | | | | | | | | | | Genesis Ayon OT | | +--------+ + + + + | 02/25/ | Office | Primary Care | Erika Ernst, | | | 2019 | Visit | | DO [address] | | | | | | [place] [address] | | | | | | [phone] | | | | | | | [...] | | | | | [place] [address] | | | | | | [phone] | | | | | | | | +--------+ + + + + | 02/27/ | Appointment | Radiology | Dhara, | | | 2019 | | | [address] | | | | [address] [place], | | | | | | [place] [address] | | | | | | [phone] | | | | | | | | +--------+ + + + + | 03/04/ | Appointment | Rehabilitation | Genesis Ayon OT | | | 2019 | | | | | +--------+ + + + + | 03/09/ | Office | Orthopedic Surgery | Jeffrey Gandhi, | | | 2019 | Visit | | [address] [facility] | | | | | | [place] [address] | | | | | | [phone] | | | | | | | [...] [place] | | | | | | [address] | | | | | | [phone] | | | | | | | [...] | | | | | [place] [address] | | | | | | [phone] | | | | | | | | | | | | Azul Yeboah, | | | | | | [address] | | | | | | [place] | | | | | | [place] [address] | | | | | | [phone] | | | | | | | [...] | | | | | | [place] [address] | | | | | | [phone] | | | | | | | [...]
--- OUTSIDE RECORDS SUMMARY | ~2020-02-18 | XMS | Encounter Summary ---
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 TENDON RELEASE TONSILLECTOMY WISDOM TOOTH EXTRACTION Family History Problem Relation Age of Onset Other (see comment) Mother gallbladder disease Hypertension Father Other (see comment) Father arrhymthmia Breast cancer Sister Cervical cancer Maternal Grandmother Heart attack Maternal Aunt [place] Social History Social History Marital status: Single [...] and their vital signs recorded by my metal moulder's assistant today, leslie alvarez found in this chart note. Electronically signed by: Emily Mittal DPM 12/06/2018 at 14:59 Note: Part of this report was transcribed using voice recognition software. Every effort wa s made to ensure accuracy. However, inadvertent computerized ux specialist errors may be pre sent. CC: Erika [...] | 2019 | | | DO [facility] | | | | | | [place] [address] | | | | | | [phone] | | | | | | | | | | | | Julia Fisher, | | | | | | PT | | +--------+ + + + + | 02/18/ | Appointment | Rehabilitation | Erika Ernst, | | | 2019 | | | DO [address] [place] | | | | | | [place] [address] | | | | | | [phone] | | | | | | | | | | | | Genesis Ayon, SUSAN | | +--------+ + + + + | 02/25/ | Office | Primary Care | Erika Ernst, | | | 2019 | Visit | | DO [address] [place] | | | | | | [place] [address] | | | | | | [phone] | | | | | | | [...] | | | | | [place] [address] | | | | | | [phone] | | | | | | | | +--------+ + + + + | 02/27/ | Appointment | Radiology | Dhara, | | | 2019 | | | [address] | | | | | | [address] [place], | | | | | | [place] [address] | | | | | | [phone] | | | | | | | [...] | | | | | [place] [address] | | | | | | [phone] | | | | | | | [...] [place] | | | | | | [address] | | | | | | [phone] | | | | | | | [...] | | | | | [place] [address] | | | | | | [phone] | | | | | | | | | | | | Azul Yeboah, | | | | | | MD [address] | | | | | | [place] | | | | | | [place] [address] | | | | | | [phone] | | | | | | | [...] | | | | | | [place] [address] | | | | | | [phone] | | | | | | | [...] IMAGING | | COMPARISON STUDY: None FINDINGS: Raleigh angle 46 degrees. | | | Talocalcaneal [...] LEFT 3 + | | VWHISTORY:pes planusCOMPARISON STUDY:NoneFINDINGS:Raleigh angle 46 degrees.Talocalcaneal | | angle 25 [...] | |None | | | |FINDINGS: | |Raleigh angle 46 degrees. | | | |Talocalcaneal [...]
--- OUTSIDE RECORDS SUMMARY | ~2020-02-18 | XMS | Encounter Summary ---
Demographics + + + | Address | [address] | | | [place] [address] | + + + | Home Phone [...] Team Providers + +------+ + | Care Backing In Machine Tender Name | Role | Phone [...] Pain | | 2020 | | [facility] | DO [address] | | | | | MEDICAL CLINIC [address] | [place] [address] | | | | | [address] [place], | [phone] | | | | | [place] [address] | | | | | | [phone] | | | +--------+ + + + [...] | | | | | [place] [address] | | | | | | [phone] | | | | | | | | | | | | Julia Fisher, | | | | | | PT | | +--------+ + + + + | 02/18/ | Appointment | Rehabilitation | Erika Ernst, | | | 2019 | | | DO [address] [place] | | | | | | [place] [address] | | | | | | [phone] | | | | | | | | | | | | Genesis Ayon OT | | +--------+ + + + + | 02/25/ | Office | Primary Care | Erika Ernst, | | | 2019 | Visit | | DO [address] [place] | | | | | | [place] [address] | | | | | | [phone] | | | | | | | [...] | | | | | [place] [address] | | | | | | [phone] | | | | | | | | +--------+ + + + + | 02/27/ | Appointment | Radiology | Dhara, | | | 2019 | | | [address] | | | | | | [facility] | | | | | [place] [address] | | | | | | [phone] | | | | | | | [...] [place]ORE | | | | | | [place] [address] | | | | | | [phone] | | | | | | | [...] [place] | | | | | | [address] | | | | | | [phone] | | | | | | | [...] | | | | | [place] [address] | | | | | | [phone] | | | | | | | | | | | | Azul Yeboah, | | | | | | MD [address] | | | | | | [place] | | | | | | [place] [address] | | | | | | [phone] | | | | | | | [...] | | | | | | [place] [address] | | | | | | [phone] | | | | | | | | +--------+ + + + + documented as of this encounter Visit Diagnoses Not on filedocumented in this encounter"
--- OUTSIDE RECORDS SUMMARY | ~2020-02-18 | XMS | Encounter Summary ---
Demographics + + + | Address | [address] | | | [place] [address] | + + + | Home Phone [...] Providers + +------+ + | Care Supervisor Electrolytic Tinning Name | Role | Phone | + [...] | [place], [place] | [place] [address] | | | | | [address] | [phone] | | | | | [phone] | | | +--------+ + + + [...] | | | | | [place] [address] | | | | | | [phone] | | | | | | | | | | | | Julia Fisher, | | | | | | PT | | +--------+ + + + + | 02/18/ | Appointment | Rehabilitation | Erika Ernst, | | | 2019 | | | DO [address] [place] | | | | | | [place] [address] | | | | | | [phone] | | | | | | | | | | | | [facility] | | +--------+ + + + + | 02/25/ | Office | Primary Care | Erika Ernst, | | | 2019 | Visit | | DO [address] [place] | | | | | | [place] [address] | | | | | | [phone] | | | | | | | [...] | | | | | [place] [address] | | | | | | [phone] | | | | | | | | +--------+ + + + + | 02/27/ | Appointment | Radiology | Dhara, | | | 2019 | | | [address] | | | | | | [address] [facility], | | | | | | [place] [address] | | | | | | [phone] | | | | | | | | +--------+ + + + + | 03/04/ | Appointment | Rehabilitation | [facility] | | | 2019 | | | | | +--------+ + + + + | 03/09/ | Office | Orthopedic Surgery | Jeffrey Gandhi, | | | 2019 | Visit | | [address] | | | | | | [place] [address] | | | | | | [phone] | | | | | | | [...] [place] | | | | | | [address] | | | | | | [phone] | | | | | | | [...] | | | | | [place] [address] | | | | | | [phone] | | | | | | | | | | | | Azul Yeboah, | | | | | | MD [address] | | | | | | [place] | | | | | | [place] [address] | | | | | | [phone] | | | | | | | [...] | | | | | | [place] [address] | | | | | | [phone] | | | | | | | | +--------+ + + + + documented as of this encounter Visit Diagnoses Not on filedocumented in this encounter"
--- OUTSIDE RECORDS SUMMARY | ~2020-02-18 | XMS | Encounter Summary ---
Demographics + + + | Address | [address] | | | [place] [address] | + + + | Home Phone [...] Team Providers + +------+ + | Care Baster Hand Name | Role | Phone | [...] | | | | disorder) | [place] [address] | RONDE | | | | | Anxiety | Phone: | RECOVERY | | | | | | [phone] | [address] | | | | | | Fax: | [place], [place] | | | | | | [phone] | [address] | | | | | | | Phone: | | | | | | | [phone] | | | | | | | Fax: | | | | | | | [phone] | +--------+ + + + + + [...] [address] | [facility] [place] [address] | allergies (Primary | | | | [address] [facility], | [phone] | Dx); PTSD | | | | [place] [address] | | (post-traumatic | | | | [phone] | | stress disorder); | | | [...] refer her to Radha Lamb her in [place]. She states anxiety has bee n a [...] daily. 30 tablet 0 Cholecalciferol (VITAMIN D3) 13244 units TABS Take 1 tablet by mouth [...] one week. Referral to Radha Lamb at [facility] for mental health therapy. documented in [...] | | | | | [place] [address] | | | | | | [phone] | | | | | | | | | | | | Julia Fisher, | | | | | | PT | | +--------+ + + + + | 02/18/ | Appointment | Rehabilitation | Erika Ernst, | | | 2019 | | | DO [address] [place] | | | | | | [place] [address] | | | | | | [phone] | | | | | | | | | | | | Genesis Ayon OT | | +--------+ + + + + | 02/25/ | Office | Primary Care | Erika Ernst, | | | 2019 | Visit | | DO [address] [place] | | | | | | [place] [address] | | | | | | [phone] | | | | | | | [...] | | | | | [place] [address] | | | | | | [phone] | | | | | | | | +--------+ + + + + | 02/27/ | Appointment | Radiology | Dhara, | | | 2019 | | | D[address] Ross [address] | | | | | | [address] [place], | | | | | | [place] [address] | | | | | | [phone] | | | | | | | [...] ST | | | | | | [place] [address] | | | | | | [phone] | | | | | | | [...] [place] | | | | | | [address] | | | | | | [phone] | | | | | | | [...] | | | | | [place] [address] | | | | | | [phone] | | | | | | | | | | | | Azul Yeboah, | | | | | | MD [address] | | | | | | [place] | | | | | | [place] [address] | | | | | | [phone] | | | | | | | [...] | | | | | | [place] [address] | | | | | | [phone] | | | | | | | [...]
--- OUTSIDE RECORDS SUMMARY | ~2020-02-18 | XMS | Encounter Summary ---
Demographics + + + | Address | [address] | | | [place] [address] | + + + | Home Phone [...] Providers + +------+ + | Care Blasting Miner Name | Role | Phone | + [...] | [facility] [place] [address] | | | | | [address] [place], | [phone] | | | | | [place] [address] | | | | | | [phone] | | | +--------+ + + + [...] | | | | | [place] [address] | | | | | | [phone] | | | | | | | | | | | | Julia Fisher, | | | | | | PT | | +--------+ + + + + | 02/18/ | Appointment | Rehabilitation | Erika Ernst, | | | 2019 | | | DO [address] [place] | | | | | | [place] [address] | | | | | | [phone] | | | | | | | | | | | | Genesis Ayon, OT | | +--------+ + + + + | 02/25/ | Office | Primary Care | Erika Ernst, | | | 2019 | Visit | | DO [address] [place] | | | | | | [place] [address] | | | | | | [phone] | | | | | | | [...] | | | | | [place] [address] | | | | | | [phone] | | | | | | | | +--------+ + + + + | 02/27/ | Appointment | Radiology | Dhara, | | | 2019 | | | [address] | | | | | | 4TH [facility], | | | | | | [place] [address] | | | | | | [phone] | | | | | | | [...] CENTER | | | | | | [place] [address] | | | | | | [phone] | | | | | | | [...] [place] | | | | | | [address] | | | | | | [phone] | | | | | | | [...] | | | | | [place] [address] | | | | | | [phone] | | | | | | | | | | | | Azul Yeboah, | | | | | | MD [address] | | | | | | [place] | | | | | | [place] [address] | | | | | | [phone] | | | | | | | [...] [address] | | | | | | [phone] | | | | | | | | +--------+ + + + + documented as of this encounter Visit Diagnoses Not on filedocumented in this encounter"
--- OUTSIDE RECORDS SUMMARY | ~2020-02-18 | XMS | Encounter Summary ---
Demographics + + + | Address | [address] | | | [place] [address] | + + + | Home Phone [...] Providers + +------+ + | Care Field Crew Chief Name | Role | Phone | + +------+ + PCP | Unavailable | + +------+ + Encounter Details +--------+ + + + + | Date | Type | Department | Care Team | Description | +--------+ + + + + | 05/11/ | Hospital | [place] [facility] | Tyrese Kee | | | 2013 | Encounter | [facility] EM[facility] | MD Peter [address] | | | | | CENTER [address] | [address] [place] | | | | | [address] [place], [place] | [place] [address] | | | | | [address] | [phone] | | | | | [phone] | | | +--------+ + + + [...] | | | | | [place] [address] | | | | | | [phone] | | | | | | | | | | | | Julia Fisher, | | | | | | PT | | +--------+ + + + + | 02/18/ | Appointment | Rehabilitation | Erika Ernst, | | | 2019 | | | DO [address] [place] | | | | | | [place] [address] | | | | | | [phone] | | | | | | | | | | | | Genesis Ayon OT | | +--------+ + + + + | 02/25/ | Office | Primary Care | Erika Ernst, | | | 2019 | Visit | | DO [address] [place] | | | | | | [place] [address] | | | | | | [phone] | | | | | | | [...] | | | | | [place] [address] | | | | | | [phone] | | | | | | | | +--------+ + + + + | 02/27/ | Appointment | Radiology | Dhara, | | | 2019 | | | DWAINE [address] | | | | | | 4TH [facility], | | | | | | [place] [address] | | | | | | [phone] | | | | | | | [...] [place] | | | | | | [place] [address] | | | | | | [phone] | | | | | | | [...] [place] | | | | | | [address] | | | | | | [phone] | | | | | | | [...] | | | | | [place] [address] | | | | | | [phone] | | | | | | | | | | | | Azul Yeboah, | | | | | | MD [address] | | | | | | [place] | | | | | | [place] [address] | | | | | | [phone] | | | | | | | [...] | | | | | | [place] [address] | | | | | | [phone] | | | | | | | | +--------+ + + + + documented as of this encounter Visit Diagnoses Not on filedocumented in this encounter"
--- OUTSIDE RECORDS SUMMARY | ~2020-02-18 | XMS | Encounter Summary ---
Demographics + + + | Address | [address] | | | [place] [address] | + + + | Home Phone [...] Providers + +------+ + | Care Animal Husbandman Name | Role | Phone | + +------+ + PCP | Unavailable | + +------+ + Encounter Details +--------+ + + + + | Date | Type | Department | Care Team | Description | +--------+ + + + + | 12/23/ | Hospital | [place] [facility] | Heather Yip, | | | 2016 | Encounter | H[facility]PITAL [facility] | SUSTAINABLE AGRICULTURE SPECIALIST [address] | | | | | [address] [place] | [place] [address] | | | | | [place], [place] | [phone] | | | | | [address] | | | | | | [phone] | | | +--------+ + + + [...] | | | | | [place] [address] | | | | | | [phone] | | | | | | | | | | | | Julia Fisher, | | | | | | PT | | +--------+ + + + + | 02/18/ | Appointment | Rehabilitation | Erika Ernst, | | | 2019 | | | DO [address] [place] | | | | | | [place] [address] | | | | | | [phone] | | | | | | | | | | | | Genesis Ayon, OT | | +--------+ + + + + | 02/25/ | Office | Primary Care | Erika Ernst, | | | 2019 | Visit | | DO [address] [place] | | | | | | [place] [address] | | | | | | [phone] | | | | | | | [...] | | | | | [place] [address] | | | | | | [phone] | | | | | | | | +--------+ + + + + | 02/27/ | Appointment | Radiology | Dhara, | | | 2019 | | | [address]INE [address] | | | | | | 4TH [facility], | | | | | | [place] [address] | | | | | | [phone] | | | | | | | | +--------+ + + + + | 03/04/ | Appointment | Rehabilitation | Genesis Ayon OT | | | 2019 | | | | | +--------+ + + + + | 03/09/ | Office | Orthopedic Surgery | Jeffrey Gandhi, | | 2019 | Visit | | [address] | | | | | | [place] [address] | | | | | | [phone] | | | | | | | [...] [place] | | | | | | [address] | | | | | | [phone] | | | | | | | [...] | | | | | [place] [address] | | | | | | [phone] | | | | | | | | | | | | Azul Yeboah, | | | | | | MD [address] | | | | | | [place] | | | | | | [place] [address] | | | | | | [phone] | | | | | | | | +--------+ + + + + | 04/08/ | Appointment | Nutrition | Janel Webster | | | 2019 | | | [place], [place] | | +--------+ + + + + | 05/21/ | Office | Neurology | Dhara, | | | 2019 | Visit | | Cody, SUSTAINABLE AGRICULTURE SPECIALIST [address] | | | | | | 4TH [facility], | | | | | | [place] [address] | | | | | | [phone] | | | | | | | [...] | NEGATIVE | EXTERNAL | | | [place] | | | LAB | | + [...]
--- OUTSIDE RECORDS SUMMARY | ~2020-02-18 | XMS | Encounter Summary ---
Demographics + + + | Address | [address] | | | [place] [address] | + + + | Home Phone [...] Providers + +------+ + | Care Quality Head Name | Role | Phone | [...] Medication Question | | 2018 | | [facility] | [facility] [address] | (medication is | | | | MEDICAL CL[facility]IC [address] | [facility] [address] | making her nauseous. | | | | [address] [place], | [phone] | ) | | | | [place] [address] | | | | | | [phone] | | | +--------+ + + + [...] | | | | | [place] [address] | | | | | | [phone] | | | | | | | | | | | | Julia Fisher, | | | | | | PT | | +--------+ + + + + | 02/18/ | Appointment | Rehabilitation | Erika Ernst, | | | 2019 | | | DO [address] | | | | | | [place] [address] | | | | | | [phone] | | | | | | | | | | | | Genesis Ayon, OT | | +--------+ + + + + | 02/25/ | Office | Primary Care | Erika Ernst, | | | 2019 | Visit | | DO [address] [place] | | | | | | [place] [address] | | | | | | [phone] | | | | | | | [...] | | | | | [place] [address] | | | | | | [phone] | | | | | | | | +--------+ + + + + | 02/27/ | Appointment | Radiology | Dhara, | | | 2019 | | | DWAINE [address] | | | | | | 4TH [facility], | | | | | | [place] [address] | | | | | | [phone] | | | | | | | | +--------+ + + + + | 03/04/ | Appointment | Rehabilitation | Genesis Ayon OT | | | 2019 | | | | | +--------+ + + + + | 03/09/ | Office | Orthopedic Surgery | Jeffrey Gandhi, | | | 2019 | Visit | | MD [address] [facility] | | | | | | [place] [address] | | | | | | [phone] | | | | | | | [...] [place] | | | | | | [address] | | | | | | [phone] | | | | | | | [...] | | | | | [place] [address] | | | | | | [phone] | | | | | | | | | | | | Azul Yeboah, | | | | | | MD [address] | | | | | | [place] | | | | | | [place] [address] | | | | | | [phone] | | | | | | | [...] | | | | | | [place] [address] | | | | | | [phone] | | | | | | | | +--------+ + + + + documented as of this encounter Visit Diagnoses Not on filedocumented in this encounter"
--- OUTSIDE RECORDS SUMMARY | ~2020-02-18 | XMS | Encounter Summary ---
Demographics + + + | Address | [address] | | | [place] [address] | + + + | Home Phone [...] Providers + +------+ + | Care Breaker Layer Name | Role | Phone | [...] | DO [address] | environmental | | | | MEDICAL CLIN[facility] [address] | [facility] [place] [address] | allergies (Primary | | | | [address] [place], | [phone] | Dx); Thyroid cyst | | | | [place] [address] | | | | | | [phone] | | | +--------+---------+ + + + [...] | | | | | [place] [address] | | | | | | [phone] | | | | | | | | | | | | Julia Fisher, | | | | | | PT | | +--------+ + + + + | 02/18/ | Appointment | Rehabilitation | Erika Ernst, | | | 2019 | | | DO [address] [place] | | | | | | [place] [address] | | | | | | [phone] | | | | | | | | | | | | Genesis Ayon OT | | +--------+ + + + + | 02/25/ | Office | Primary Care | Erika Ernst, | | | 2019 | Visit | | DO [address] | | | | | | [place] [address] | | | | | | [phone] | | | | | | | [...] | | | | | [place] [address] | | | | | | [phone] | | | | | | | | +--------+ + + + + | 02/27/ | Appointment | Radiology | Dhara, | | | 2019 | | | DWAINE Ross [address] | | | | | | 4TH [facility], | | | | | | [place] [address] | | | | | | [phone] | | | | | | | | +--------+ + + + + | 03/04/ | Appointment | Rehabilitation | Genesis Ayon OT | | | 2019 | | | | | +--------+ + + + + | 03/09/ | Office | Orthopedic Surgery | Jeffrey Gandhi, | | | 2019 | Visit | | [place] [address] [facility] | | | | | | [place] [address] | | | | | | [phone] | | | | | | | [...] [place] | | | | | | [address] | | | | | | [phone] | | | | | | | [...] | | | | | [place] [address] | | | | | | [phone] | | | | | | | | | | | | Azul Yeboah, | | | | | | MD [address] | | | | | | [place] | | | | | | [place] [address] | | | | | | [phone] | | | | | | | [...] | | | | | | [place] [address] | | | | | | [phone] | | | | | | | | +--------+ + + + + documented as of this encounter Visit Diagnoses + + | Diagnosis | + + | 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
--- OUTSIDE RECORDS SUMMARY | ~2020-02-18 | XMS | Encounter Summary ---
Demographics + + + | Address | [address] | | | [place] [address] | + + + | Home Phone [...] Providers + +------+ + | Care Dry Kiln Worker Name | Role | Phone | [...] | | | to excess | [place] [address] | | | | | | calories | Phone: | | | | | | without | [phone] | | | | | | serious | Fax: | | | | | | comorbidity | [phone] | | | | | | with [...] | | | | | | | [place] [facility] | | | | | | [...] | SERVICES [address] | [place] [address] | malignant; Morbid | | | | DR [place], [place] | [phone] | obesity (HCC); | | | | [address] | | Dietary counseling | | | | [phone] | Janel Webster, | and surveillance; | [...] | | | | | [place] [address] | | | | | | [phone] | | | | | | | | | | | | Julia Fisher, | | | | | | PT | | +--------+ + + + + | 02/18/ | Appointment | Rehabilitation | Erika Ernst, | | 2019 | | | DO [address] [place] | | | | | | [place] [address] | | | | | | [phone] | | | | | | | | | | | | Genesis Ayon OT | | +--------+ + + + + | 02/25/ | Office | Primary Care | Erika Ernst, | | | 2019 | Visit | | DO [address] [place] | | | | | | [place] [address] | | | | | | [phone] | | | | | | | [...] | | | | | [place] [address] | | | | | | [phone] | | | | | | | | +--------+ + + + + | 02/27/ | Appointment | Radiology | Dhara, | | | 2019 | | | [address]INE [address] | | | | | | 4TH [facility], | | | | | | [place] [address] | | | | | | [phone] | | | | | | | [...] [place] | | | | | | [place] [address] | | | | | | [phone] | | | | | | | [...] [place] | | | | | | [address] | | | | | | [phone] | | | | | | | [...] | | | | | [place] [address] | | | | | | [phone] | | | | | | | | | | | | Azul Yeboah, | | | | | | MD [address] | | | | | | [place] | | | | | | [place] [address] | | | | | | [phone] | | | | | | | [...] | | | | | | [place] [address] | | | | | | [phone] | | | | | | | [...]
--- OUTSIDE RECORDS SUMMARY | ~2020-02-18 | XMS | Encounter Summary ---
Demographics + + + | Address | [address] | | | [place] [address] | + + + | Home Phone [...] Providers + +------+ + | Care Dehydrator Operator Name | Role | Phone | [...] [place] | | | | | | [address] | | | | | | [phone] | | | +--------+ + + + [...] | 2019 | | | DO [address] | | | | | | [place] [address] | | | | | | [phone] | | | | | | | | | | | | Julia Fisher, | | | | | | PT | | +--------+ + + + + | 02/18/ | Appointment | Rehabilitation | Erika Ernst, | | | 2019 | | | DO [address] | | | | | | [place] [address] | | | | | | [phone] | | | | | | | | | | | | Genesis Ayon OT | | +--------+ + + + + | 02/25/ | Office | Primary Care | Erika Ernst, | | | 2019 | Visit | | DO [address] | | | | | | [place] [address] | | | | | | [phone] | | | | | | | [...] | | | | | | [place] [address] | | | | | | [phone] | | | | | | | | +--------+ + + + + | 02/27/ | Appointment | Radiology | Dhara, | | | 2019 | | | [address] | | | | | | 4TH [facility], | | | | | | [place] [address] | | | | | | [phone] | | | | | | | [...] | | | | [place], [place] [address] | | | | | | [phone] | | | | | | | [...] [place] | | | | | | [address] | | | | | | [phone] | | | | | | | [...] | | | | | [place] [address] | | | | | | [phone] | | | | | | | | | | | | Azul Yeboah, | | | | | | MD [address] | | | | | | [place] | | | | | | [place] [address] | | | | | | [phone] | | | | | | | [...] | | | | | | [place] [address] | | | | | | [phone] | | | | | | | | +--------+ + + + + documented as of this encounter Visit Diagnoses Not on filedocumented in this encounter"
--- OUTSIDE RECORDS SUMMARY | ~2020-02-18 | XMS | Encounter Summary ---
Demographics + + + | Address | [address] | | | [place] [address] | + + + | Home Phone [...] Providers + +------+ + | Care Train Operator Name | Role | Phone | [...] Refill | | 2020 | | [facility] | DO [address] | | | | | MEDICAL CLINIC [address] | [place] [address] | | | | | [address] [place], | [phone] | | | | | [place] [address] | | | | | | [phone] | | | +--------+--------+ + + + [...] | | | | | [place] [address] | | | | | | [phone] | | | | | | | | | | | | Julia Fisher, | | | | | | PT | | +--------+ + + + + | 02/18/ | Appointment | Rehabilitation | Erika Ernst, | | | 2019 | | | DO [address] [place] | | | | | | [place] [address] | | | | | | [phone] | | | | | | | | | | | | Genesis Ayon OT | | +--------+ + + + + | 02/25/ | Office | Primary Care | Erika Ernst, | | | 2019 | Visit | | DO [address] | | | | | | [place] [address] | | | | | | [phone] | | | | | | | [...] | | | | | [place] [address] | | | | | | [phone] | | | | | | | | +--------+ + + + + | 02/27/ | Appointment | Radiology | Dhara, | | | 2019 | | | [address] | | | | | | 4TH [facility], | | | | | | [place] [address] | | | | | | [phone] | | | | | | | [...] [place] | | | | | | [place] [address] | | | | | | [phone] | | | | | | | [...] [place] | | | | | | [address] | | | | | | [phone] | | | | | | | [...] | | | | | [place] [address] | | | | | | [phone] | | | | | | | | | | | | Azul Yeboah, | | | | | | MD [address] | | | | | | [place] | | | | | | [place] [address] | | | | | | [phone] | | | | | | | [...] | | | | | | [place] [address] | | | | | | [phone] | | | | | | | | +--------+ + + + + documented as of this encounter Visit Diagnoses Not on filedocumented in this encounter"
--- OUTSIDE RECORDS SUMMARY | ~2020-02-18 | XMS | Encounter Summary ---
Demographics + + + | Address | [address] | | | [place] [address] | + + + | Home Phone [...] Team Providers + +------+ + | Care Pathology Collector Name | Role | Phone | [...] | | | [place], [place] | [id number] | | | | | [address] | | | | | | [phone] | | | +--------+ + + + [...] | | | | | [place], [place] [address] | | | | | | [phone] | | | | | | | | | | | | Julia Fisher, | | | | | | PT | | +--------+ + + + + | 02/18/ | Appointment | Rehabilitation | Erika Ernst, | | | 2019 | | | DO [address] | | | | | | [place] [address] | | | | | | [phone] | | | | | | | | | | | | Genesis Ayon OT | | +--------+ + + + + | 02/25/ | Office | Primary Care | Erika Ernst, | | | 2019 | Visit | | DO [address] | | | | | | [place] [address] | | | | | | [phone] | | | | | | | [...] | | | | | [place] [address] | | | | | | [phone] | | | | | | | | +--------+ + + + + | 02/27/ | Appointment | Radiology | Dhara, | | | 2019 | | | [address] | | | | | | 4TH [facility], | | | | | | [place] [address] | | | | | | [phone] | | | | | | | | +--------+ + + + + | 03/04/ | Appointment | Rehabilitation | Genesis Ayon OT | | | 2019 | | | | | +--------+ + + + + | 03/09/ | Office | Orthopedic Surgery | Jeffrey Gandhi, | | | 2019 | Visit | | MD [address] [facility] | | | | | | [place] [address] | | | | | | [phone] | | | | | | | [...] [place] | | | | | | [address] | | | | | | [phone] | | | | | | | [...] | | | | | [place] [address] | | | | | | [phone] | | | | | | | | | | | | Azul Yeboah, | | | | | | MD [address] | | | | | | [place] | | | | | | [place] [address] | | | | | | [phone] | | | | | | | | +--------+ + + + + | 04/08/ | Appointment | Nutrition | Janel Webster | | | 2019 | | | [place] | | +--------+ + + + + | 05/21/ | Office | Neurology | Dhara, | | | 2019 | Visit | | [address] | | | | | | [address] [place], | | | | | | [place] [address] | | | | | | [phone] | | | | | | | | +--------+ + + + + documented as of this encounter Visit Diagnoses Not on filedocumented in this encounter"
--- OUTSIDE RECORDS SUMMARY | ~2020-02-18 | XMS | Encounter Summary ---
Demographics + + + | Address | [address] | | | [place] [address] | + + + | Home Phone [...] Providers + +------+ + | Care Chief Technology Officer Name | Role | Phone | [...] Testing | | 2020 | | [facility] | DO [address] | | | | | MEDICAL CLINIC [address] | [place] [address] | | | | [address] [place], | [phone] | | | | | [place] [address] | | | | | | [phone] | | | +--------+ + + + [...] | | | | | [place] [address] | | | | | | [phone] | | | | | | | | | | | | Julia Fisher, | | | | | | PT | | +--------+ + + + + | 02/18/ | Appointment | Rehabilitation | Erika Ernst, | | | 2019 | | | DO [address] | | | | | | [place] [address] | | | | | | [phone] | | | | | | | | | | | | [facility] | | +--------+ + + + + | 02/25/ | Office | Primary Care | Erika Ernst, | | | 2019 | Visit | | DO [address] | | | | | | [place] [address] | | | | | | [phone] | | | | | | | [...] | | | | | | [place] [address] | | | | | | [phone] | | | | | | | | +--------+ + + + + | 02/27/ | Appointment | Radiology | Dhara, | | 2019 | | | [address] | | | | | | [address] [facility], | | | | | | [place] [address] | | | | | | [phone] | | | | | | | | +--------+ + + + + | 03/04/ | Appointment | Rehabilitation | [facility] | | | 2019 | | | | | +--------+ + + + + | 03/09/ | Office | Orthopedic Surgery | Jeffrey Gandhi, | | | 2019 | Visit | | [address] | | | | | | [place] [address] | | | | | | [phone] | | | | | | | [...] [place] | | | | | | [address] | | | | | | [phone] | | | | | | | [...] | | | | | [place] [address] | | | | | | [phone] | | | | | | | | | | | | Azul Yeboah, | | | | | | [address] | | | | | | [place] | | | | | | [place] [address] | | | | | | [phone] | | | | | | | [...] | | | | | | [address] [place], | | | | | | [place] [address] | | | | | | [phone] | | | | | | | | +--------+ + + + + documented as of this encounter Visit Diagnoses Not on filedocumented in this encounter"
--- OUTSIDE RECORDS SUMMARY | ~2020-02-18 | XMS | Encounter Summary ---
Demographics + + + | Address | [address] | | | [place] [address] | + + + | Home Phone [...] Team Providers + +------+ + | Care Falafel Cart Cook Name | Role | Phone | [...] [facility] [address] | [place] [address] | | | | | [address] [place], | [phone] | | | | | [place] [address] | | | | | | [phone] | | | +--------+ + + + [...] | | | | | [place] [address] | | | | | | [phone] | | | | | | | | | | | | Julia Fisher, | | | | | | PT | | +--------+ + + + + | 02/18/ | Appointment | Rehabilitation | Erika Ernst, | | | 2019 | | | DO [address] | | | | | | [place] [address] | | | | | | [phone] | | | | | | | | | | | | Genesis Ayon OT | | +--------+ + + + + | 02/25/ | Office | Primary Care | Erika Ernst, | | | 2019 | Visit | | DO [address] | | | | | | [place] [address] | | | | | | [phone] | | | | | | | [...] | | | | | [place] [address] | | | | | | [phone] | | | | | | | | +--------+ + + + + | 02/27/ | Appointment | Radiology | Dhara, | | | 2019 | | | DWA[address] Ross [address] | | | | | | [address] [facility] | | | | | | [place] [address] | | | | | | [phone] | | | | | | | [...] | | | | | [place] [address] | | | | | | [phone] | | | | | | | [...] [place] | | | | | | [address] | | | | | | [phone] | | | | | | | [...] [address] | | | | | | [phone] | | | | | | | | | | | | Azul Yeboah, | | | | | | MD [address] | | | | | | [place] | | | | | | [place] [address] | | | | | | [phone] | | | | | | | [...] | | | | | | [place] [address] | | | | | | [phone] | | | | | | | [...] + + | [place] [facility] | [address] | [place] | [phone] | | [facility] | | [address] | | + + + + + [...] + + | [place] [facility] | [address] | [place] | [phone] | | [facility] | | [address] | | + + + + + documented in this encounter Visit Diagnoses + + | Diagnosis | + + | Iron deficiency - Primary Other disorders of iron metabolism | + + documented in this encounter"
--- OUTSIDE RECORDS SUMMARY | ~2020-02-18 | XMS | Encounter Summary ---
Demographics + + + | Address | [address] | | | [place] [address] | + + + | Home Phone [...] Providers + +------+ + | Care Office Employee Name | Role | Phone | [...] | | | | [place], [place] | [address] | | | | | [address] | [phone] | | | | | [phone] | | | +--------+ + + + [...] | | | | | [place] [address] | | | | | | [phone] | | | | | | | | | | | | Julia Fisher, | | | | | | PT | | +--------+ + + + + | 02/18/ | Appointment | Rehabilitation | Erika Ernst, | | | 2019 | | | DO [address] | | | | | | [place] [address] | | | | | | [phone] | | | | | | | | | | | | Genesis Ayon, OT | | +--------+ + + + + | 02/25/ | Office | Primary Care | Erika Ernst, | | | 2019 | Visit | | DO [address] | | | | | | [place] [address] | | | | | | [phone] | | | | | | | [...] | | | | | [place] [address] | | | | | | [phone] | | | | | | | | +--------+ + + + + | 02/27/ | Appointment | Radiology | Dhara, | | | 2019 | | | [address]WA[address] | | | | | | [address]TH [facility], | | | | | | [place] [address] | | | | | | [phone] | | | | | | | | +--------+ + + + + | 03/04/ | Appointment | Rehabilitation | Genesis Ayon OT | | | 2019 | | | | | +--------+ + + + + | 03/09/ | Office | Orthopedic Surgery | Jeffrey Gandhi, | | 2019 | Visit | | [address] | | | | | | [place] [address] | | | | | | [phone] | | | | | | | [...] [place] | | | | | | [address] | | | | | | [phone] | | | | | | | [...] | | | | | [place] [address] | | | | | | [phone] | | | | | | | | | | | | Azul Yeboah, | | | | | | MD [address] | | | | | | [place] | | | | | | [place] [address] | | | | | | [phone] | | | | | | | [...] | | | | | | [place] [address] | | | | | | [phone] | | | | | | | [...] with pain. JOB #: | | | [id number] Read By: ANJELICA CHAMBERS MD Released By: [...] can be associated with pain. JOB #: [id number] Read By: ANJELICA CHAMBERS, | | Released [...] | | | | | |JOB #: [id number] | | | |Read By: ANJELICA CHAMBERS MD | | | |Released By: ANJELICA CHAMBERS MD | |Date: 12/26/2014 07:53 | | | | | + + documented in this encounter Visit Diagnoses Not on filedocumented in this encounter"
--- OUTSIDE RECORDS SUMMARY | ~2020-02-18 | XMS | Encounter Summary ---
Demographics + + + | Address | [address] | | | [place] [address] | + + + | Home Phone [...] Providers + +------+ + | Care Comic Illustrator Name | Role | Phone | + [...] | | | | s (de | [place], [place] | [place] [address] | | | | | quervain) | [address] | Phone: | | | | | Pain in | Phone: | [phone] | | | | | right wrist | [phone] | Fax: | | | | | Procedures | Fax: | [phone] | | | | | OT TREAT | [phone] | | +--------+--------+ + + + + [...] | | [address] [place] | [place] [address] | (Primary Dx); Right | | | | [place], [place] | [phone] | wrist pain | | | | [address] | | | | | | [phone] | Michela Azevedo, | | | | [...] | 11/26/19 | | | (VITAMIN D3) 777[address] | mouth Once a week | tablet [...] Ordering Physician: Jeffrey Gandhi MD Claim #: [id number] Date of Injury: No data was found [...] Deviation: 21 Strength at last Assessment L Supervisor Customer Complaint Service Trial 1: 51 L Supervisor Customer Complaint Service Trial Average: 51 Right Hand Strength - Supervisor Customer Complaint Service (lbs) R Supervisor Customer Complaint Service Trial 1: 25 R Supervisor Customer Complaint Service Trial Average: 25 Current Strength Strength: R Supervisor Customer Complaint Service Trial 1: 24 R Supervisor Customer Complaint Service Trial Average: 24 Left Hand Strength - Supervisor Customer Complaint Service (lbs) L Supervisor Customer Complaint Service Trial 1: 41 L Supervisor Customer Complaint Service Trial Average: 41 Proposed Treatment Dates for Majoris Review Proposed treatments date: No data was found to No data was found Plan Treatment Plan/Interventions OT Jzagrjjzae20962 - Therapeutic Vbluxvxt18375 - Therapeutic Kiglvvjgyi67884 - Self Care/ Home Vmhsfymzmm65537 - Manual Itxwbqc24600 - Orthotic/Prosthetic Frlmwoof59361 - Ultrasound9 7034 - Contrast Cufx17953 - Paraffin BathSplinting Moist heat, cold therapy [...] 10/30/2018 Certification To: 01/22/2019 Treatment Plan/Interventions OT Ydzvqhntfo44965 - Therapeutic Ltjcbjku80058 - Therapeutic Ultnmvsyps54751 - Self Care/Ho me Zvzosathqu01966 - Manual Skimacl43195 - Orthotic/Prosthetic Gdlwemkj29659 - Pnqtfobpyb947 34 - Contrast Fljs07953 - Paraffin BathSplinting Moist heat, cold therapy [...] period and is compliant with wrist and business services coordinator strengthening exercises. She does still have deficits in business services coordinator strength and wrist stability as well as pain with daily activities. Her arya b description may be changing which would decrease the physical demands of her work, making it more appropriate for her current status. She continues to benefit from Occupational Thera py to maximize her business services coordinator strength and wrist stability following this injury and return her to prior level of function. 10/30/2018 - REASON FOR RE-CERTIFICATION: Andrea has received 12 Occupational Therapy treatme nts since 08/07/2018 following her right wrist surgery. She has regained full AROM of the rig ht wrist but continues to have right wrist, business services coordinator and pinch weakness and significant pain [...] in 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, and business services coordinator and pinch weakness in the right [...] note might be different from the original. [facility] THERAPY OT [address] [place] [address] Occupational Therapy Daily Treatment Note Date: 12/31/2018 [...] other week until she sees Dr. Noriega. Supervisor Customer Complaint Service strengthening protocol 5' 2x/day and isometrics are her HEP until next session. Next Visit: check response for business services coordinator strengthening protocol Patient/Caregiver Education Learner: Patient Readiness: Acceptance Method: Explanation, Demonstration, Handout Response: Verbalizes Understanding, Demonstrated Understanding Comment: HEP Interventions HEP : business services coordinator strengthening x 5' 2x/day with progressions and regressions as needed per tolera nce discussed, submaximal isometrics x 10 reps a day each direction OT INTERVENTION 2: TE 30 minutes: submaximal isometrics x 10, business services coordinator strengthening protocol 5 minutes with pink tputty, [...] period and is compliant with wrist and business services coordinator strengthening exercises. She does still have deficits in business services coordinator strength and wrist stability as well as pain with daily activities. Her arya b description may be changing which would decrease the physical demands of her work, making it more appropriate for her current status. She continues to benefit from Occupational Thera py to maximize her business services coordinator strength and wrist stability following this injury and return her to prior level of function. 10/30/2018 - REASON FOR RE-CERTIFICATION: Andrea has received 12 Occupational Therapy treatme nts since 08/07/2018 following her right wrist surgery. She has regained full AROM of the rig ht wrist but continues to have right wrist, business services coordinator and pinch weakness and significant pain [...] in 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, and business services coordinator and pinch weakness in the right [...] | | | | | [place] [address] | | | | | | [phone] | | | | | | | | | | | | Julia Fisher, | | | | | | PT | | +--------+ + + + + | 02/18/ | Appointment | Rehabilitation | Erika Ernst, | | | 2019 | | | DO [address] | | | | | | [place] [address] | | | | | | [phone] | | | | | | | | | | | | Genesis Ayon OT | | +--------+ + + + + | 02/25/ | Office | Primary Care | Erika Ernst, | | | 2019 | Visit | | DO [address] | | | | | | [place] [address] | | | | | | [phone] | | | | | | | [...] | | | | | [place] [address] | | | | | | [phone] | | | | | | | | +--------+ + + + + | 02/27/ | Appointment | Radiology | Dhara, | | | 2019 | | | DWAINE Ross [address] | | | | | [address] [place], | | | | | | [place] [address] | | | | | | [phone] | | | | | | | [...] ST | | | | | | [place] [address] | | | | | | [phone] | | | | | | | [...] [place] | | | | | | [address] | | | | | | [phone] | | | | | | | [...] | | | | | [place] [address] | | | | | | [phone] | | | | | | | | | | | | Azul Yeboah, | | | | | | MD [address] | | | | | | [place] | | | | | | [place] [address] | | | | | | [phone] | | | | | | | [...] | | | | | | [place] [address] | | | | | | [phone] | | | | | | | | +--------+ + + + + documented as of this encounter Visit Diagnoses + + | Diagnosis | + + | Radial styloid tenosynovitis - Primary | + + | Right wrist pain Pain in joint, forearm | + + documented in this encounter"
--- OUTSIDE RECORDS SUMMARY | ~2020-02-18 | XMS | Encounter Summary ---
Demographics + + + | Address | [address] | | | [place] [address] | + + + | Home Phone [...] Providers + +------+ + | Care Family Services Assistant Name | Role | Phone | [...] | | | | | | [place] [address] | [place], | | | | | | Phone: | [place] [address] | | | | | | [phone] | Phone: | | | | | | Fax: | [phone] | | | | | | [phone] | Fax: | | | | | | | [phone] | +--------+ + + + + + [...] | [facility] | [place] [address] | | | | | [address] [place], | [phone] | | | | | [place] [address] | | | | | | [phone] | | | +--------+ + + + [...] | 2019 | | | DO [address] [place] [address] | | | | | | [place] [address] | | | | | | [phone] | | | | | | | | | | | | Julia Fisher, | | | | | | PT | | +--------+ + + + + | 02/18/ | Appointment | Rehabilitation | Erika Ernst, | | | 2019 | | | DO [address] | | | | | | [place] [address] | | | | | | [phone] | | | | | | | | | | | | Genesis Ayon, SUSAN | | +--------+ + + + + | 02/25/ | Office | Primary Care | Erika Ernst, | | | 2019 | Visit | | DO [address] | | | | | | [place] [address] | | | | | | [phone] | | | | | | | [...] | | | | | [place] [address] | | | | | | [phone] | | | | | | | | +--------+ + + + + | 02/27/ | Appointment | Radiology | Dhara, | | | 2019 | | | DWA[address] | | | | | | [address] [facility] [place], | | | | | | [place] [address] | | | | | | [phone] | | | | | | | [...] | | | | | [place] [address] | | | | | | [phone] | | | | | | | [...] [place] | | | | | | [address] | | | | | | [phone] | | | | | | | [...] | | | | | [place] [address] | | | | | | [phone] | | | | | | | | | | | | Azul Yeboah, | | | | | | MD [address] | | | | | | [place] | | | | | | [place] [address] | | | | | | [phone] | | | | | | | [...] | | | | | | [place] [address] | | | | | | [phone] | | | | | | | [...]
--- OUTSIDE RECORDS SUMMARY | ~2020-02-18 | XMS | Encounter Summary ---
Demographics + + + | Address | [address] | | | [place] [address] | + + + | Home Phone [...] Providers + +------+ + | Care Events Traffic Controller Name | Role | Phone | [...] | [place], [place] | [place] [address] | | | | | [address] | [phone] | | | | | [phone] | | | +--------+---------+ + + + [...] right wrist arthroscop y and surgery in [facility]. She continued to have pain at [...] made to ensure accuracy. However, inadvertent computerized merchandise collector errors may be pre sent. documented in [...] | | | | | [place] [address] | | | | | | [phone] | | | | | | | | | | | | Julia Fisher, | | | | | | PT | | +--------+ + + + + | 02/18/ | Appointment | Rehabilitation | Erika Ernst, | | | 2019 | | | DO [address] | | | | | | [place] [address] | | | | | | [phone] | | | | | | | | | | | | Genesis Ayon OT | | +--------+ + + + + | 02/25/ | Office | Primary Care | Erika Ernst, | | | 2019 | Visit | | DO [address] | | | | | | [place] [address] | | | | | | [phone] | | | | | | | [...] | | | | | [place] [address] | | | | | | [phone] | | | | | | | | +--------+ + + + + | 02/27/ | Appointment | Radiology | Dhara, | | | 2019 | | | DWAINE Ross [address] | | | [address] [place], | | | | | | [place] [address] | | | | | | [phone] | | | | | | | | +--------+ + + + + | 03/04/ | Appointment | Rehabilitation | Genesis Ayon OT | | | 2019 | | | | | +--------+ + + + + | 03/09/ | Office | Orthopedic Surgery | Jeffrey Gandhi, | | | 2019 | Visit | | [place] [address] [facility] | | | | | | [place] [address] | | | | | | [phone] | | | | | | | [...] [place] | | | | | | [address] | | | | | | [phone] | | | | | | | [...] | | | | | [place] [address] | | | | | | [phone] | | | | | | | | | | | | Azul Yeboah, | | | | | | [address] | | | | | | [place] | | | | | | [place] [address] | | | | | | [phone] | | | | | | | [...] | | | | | | [place] [address] | | | | | | [phone] | | | | | | | | +--------+ + + + + documented as of this encounter Visit Diagnoses + + | Diagnosis | + + | S/P right ECU tenosynovectomy on 03/20/19 - Primary | + + documented in this encounter"
--- OUTSIDE RECORDS SUMMARY | ~2020-02-18 | XMS | Encounter Summary ---
Demographics + + + | Address | [address] | | | [place] [address] | + + + | Home Phone [...] Team Providers + +------+ + | Care Buffing And Sueding Machine Operator Name | Role | Phone [...] | | | 2019 | Support | [facility] | DO [address] | | | | | [facility] [address] | [place] [address] | | | | | [address] [place], | [phone] | | | | | [place] [address] | | | | | | [phone] | | | +--------+ + + + [...] | | | | | [place] [address] | | | | | | [phone] | | | | | | | | | | | | Julia Fisher, | | | | | | PT | | +--------+ + + + + | 02/18/ | Appointment | Rehabilitation | Erika Ernst, | | | 2019 | | | DO [address] | | | | | | [place] [address] | | | | | | [phone] | | | | | | | | | | | | Genesis Ayon OT | | +--------+ + + + + | 02/25/ | Office | Primary Care | Erika Ernst, | | | 2019 | Visit | | DO [address] | | | | | | [place] [address] | | | | | | [phone] | | | | | | | [...] | | | | | [place] [address] | | | | | | [phone] | | | | | | | | +--------+ + + + + | 02/27/ | Appointment | Radiology | Dhara, | | | 2019 | | | [address] | | | | | | [address]TH [facility], | | | | | | [place] [address] | | | | | | [phone] | | | | | | | | +--------+ + + + + | 03/04/ | Appointment | Rehabilitation | Genesis Ayon OT | | | 2019 | | | | | +--------+ + + + + | 03/09/ | Office | Orthopedic Surgery | Jeffrey Gandhi, | | | 2019 | Visit | | [address] | | | | | | [place] [address] | | | | | | [phone] | | | | | | | [...] [place] | | | | | | [address] | | | | | | [phone] | | | | | | | [...] [address] | | | | | | [phone] | | | | | | | | | | | | Azul Yeboah, | | | | | | MD [address] | | | | | | [place] | | | | | | [place] [address] | | | | | | [phone] | | | | | | | [...] | | | | | | [place] [address] | | | | | | [phone] | | | | | | | | +--------+ + + + + documented as of this encounter Visit Diagnoses Not on filedocumented in this encounter"
--- OUTSIDE RECORDS SUMMARY | ~2020-02-18 | XMS | Encounter Summary ---
Demographics + + + | Address | [address] | | | [place] [address] | + + + | Home Phone [...] Providers + +------+ + | Care Project Developer Name | Role | Phone | [...] | | | | s (de | [place], [place] | [place] [address] | | | | | quervain) | [address] | Phone: | | | | | Pain in | Phone: | [phone] | | | | | right wrist | [phone] | Fax: | | | | | Procedures | Fax: | [phone] | | | | | OT TREAT | [phone] | | +--------+--------+ + + + + [...] | | [address] [place] | [place] [address] | (Primary Dx); Right | | | | [place], [place] | [phone] | wrist pain | | | | [address] | | | | | | [phone] | Michela Azevedo, | | | | [...] might be different f rom the original. [facility] THERAPY OT [address] [place] [address] Occupational Therapy Daily Treatment Note Date: 11/21/2018 [...] so re. She reports that states the oriental rug repairer strengthening performed in therapy is fine but she h as limitation on how many hrs per day she can perform sustained gripping. A: Tx session focu sed on continued IASTM as well as gentle progressions in oriental rug repairer and wrist strengthening with p t tolerating with mild soreness. Progressed from yellow to pink tputty today. Isometrics add ed to HEP which pt tolerated well in clinic. Next Visit: check response to isometrics and pink tputty from last visit Patient/Caregiver Education Learner: Patient Readiness: Acceptance Method: Explanation Response: Verbalizes Understanding Comment: HEP additions Interventions HEP : Increased resistance with oriental rug repairer strengthening to pink tputty, added submaximal 4 [...] WBing strengthening, 4 way wrist isometrics and oriental rug repairer strengthening with pink t putty OT MANUAL [...] wrist but continues to have right wrist, oriental rug repairer and pinch weakness and significant pain (3 [...] in 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, and oriental rug repairer and pinch weakness in the right hand [...] | | | | | [place] [address] | | | | | | [phone] | | | | | | | | | | | | Julia Fisher, | | | | | | PT | | +--------+ + + + + | 02/18/ | Appointment | Rehabilitation | Erika Ernst, | | | 2019 | | | DO [address] | | | | | | [place] [address] | | | | | | [phone] | | | | | | | | | | | | Genesis Ayon OT | | +--------+ + + + + | 02/25/ | Office | Primary Care | Erika Ernst, | | | 2019 | Visit | | DO [address] | | | | | | [place] [address] | | | | | | [phone] | | | | | | | [...] | | | | | [place] [address] | | | | | | [phone] | | | | | | | | +--------+ + + + + | 02/27/ | Appointment | Radiology | Dhara, | | | 2019 | | | DWAINE Ross [address] | | | | [address] [place], | | | | | | [place] [address] | | | | | | [phone] | | | | | | | | +--------+ + + + + | 03/04/ | Appointment | Rehabilitation | Genesis Ayon OT | | | 2019 | | | | | +--------+ + + + + | 03/09/ | Office | Orthopedic Surgery | Jeffrey Gandhi, | | | 2019 | Visit | | [address] | | | | | | [place] [address] | | | | | | [phone] | | | | | | | [...] [place] | | | | | | [address] | | | | | | [phone] | | | | | | | [...] | | | | | [place] [address] | | | | | | [phone] | | | | | | | | | | | | Azul Yeboah, | | | | | | MD [address] | | | | | | [place] | | | | | | [place] [address] | | | | | | [phone] | | | | | | | [...] [address] | | | | | | [phone] | | | | | | | | +--------+ + + + + documented as of this encounter Visit Diagnoses + + | Diagnosis | + + | Radial styloid tenosynovitis - Primary | + + | Right wrist pain Pain in joint, forearm | + + documented in this encounter"
--- OUTSIDE RECORDS SUMMARY | ~2020-02-18 | XMS | Encounter Summary ---
Demographics + + + | Address | [address] | | | [place] [address] | + + + | Home Phone [...] + +------+ + | Care Configuration Management Architect Name | Role | Phone | + +------+ + PCP | Unavailable | + +------+ + Encounter Details +--------+ + + + + | Date | Type | Department | Care Team | Description | +--------+ + + + + | 11/27/ | [facility] | Bo Bhat | | | 2017 | Encounter | [facility] | [address] | | | | | [facility] [address] | [address] [place], [place] | | | | | [address] [facility], | [address] | | | | | [place] [address] | | | | | | [phone] | | | +--------+ + + + [...] | | | | | [place] [address] | | | | | | [phone] | | | | | | | | | | | | Julia Fisher, | | | | | | PT | | +--------+ + + + + | 02/18/ | Appointment | Rehabilitation | Erika Ernst, | | | 2019 | | | DO [address] | | | | | | [place] [address] | | | | | | [phone] | | | | | | | | | | | | Genesis Ayon, OT | | +--------+ + + + + | 02/25/ | Office | Primary Care | Erika Ernst, | | | 2019 | Visit | | DO [address] [place] | | | | | | [place] [address] | | | | | | [phone] | | | | | | | [...] | | | | | [place] [address] | | | | | | [phone] | | | | | | | | +--------+ + + + + | 02/27/ | Appointment | Radiology | Dhara, | | | 2019 | | | [address] | | | | | | [address] [place], | | | | | | [place] [address] | | | | | | [phone] | | | | | | | | +--------+ + + + + | 03/04/ | Appointment | Rehabilitation | Genesis Ayon OT | | | 2019 | | | | | +--------+ + + + + | 03/09/ | Office | Orthopedic Surgery | Jeffrey Gandhi, | | | 2019 | Visit | | [place] [address] [facility] | | | | | | [place] [address] | | | | | | [phone] | | | | | | | [...] [place] | | | | | | [address] | | | | | | [phone] | | | | | | | [...] | | | | | [place] [address] | | | | | | [phone] | | | | | | | | | | | | Azul Yeboah, | | | | | | MD [address] | | | | | | [place] | | | | | | [place] [address] | | | | | | [phone] | | | | | | | [...] | | | | | | [place] [address] | | | | | | [phone] | | | | | | | | +--------+ + + + + documented as of this encounter Visit Diagnoses Not on filedocumented in this encounter"
--- OUTSIDE RECORDS SUMMARY | ~2020-02-18 | XMS | Encounter Summary ---
Demographics + + + | Address | [address] | | | [place] [address] | + + + | Home Phone [...] Team Providers + +------+ + | Care Gameplay Programmer Name | Role | Phone | [...] | [facility] | [place] [address] | | | | | [address] [place], | [phone] | | | | | [place] [address] | | | | | | [phone] | | | +--------+ + + + [...] | | | | | [place] [address] | | | | | | [phone] | | | | | | | | | | | | Julia Fisher, | | | | | | PT | | +--------+ + + + + | 02/18/ | Appointment | Rehabilitation | Erika Ernst, | | | 2019 | | | DO [address] | | | | | | [place] [address] | | | | | | [phone] | | | | | | | | | | | | Genesis Ayon, OT | | +--------+ + + + + | 02/25/ | Office | Primary Care | Erika Ernst, | | | 2019 | Visit | | DO [address] | | | | | | [place] [address] | | | | | | [phone] | | | | | | | [...] | | | | | [place] [address] | | | | | | [phone] | | | | | | | | +--------+ + + + + | 02/27/ | Appointment | Radiology | Dhara, | | | 2019 | | | [address] | | | | | | 4TH [facility], | | | | | | [place] [address] | | | | | | [phone] | | | | | | | | +--------+ + + + + | 03/04/ | Appointment | Rehabilitation | Genesis Ayon OT | | 2019 | | | | | +--------+ + + + + | 03/09/ | Office | Orthopedic Surgery | Jeffrey Gandhi, | | | 2019 | Visit | | [address] | | | | | | [place] [address] | | | | | | [phone] | | | | | | | [...] [place] | | | | | | [address] | | | | | | [phone] | | | | | | | [...] | | | | | [place] [address] | | | | | | [phone] | | | | | | | | | | | | Azul Yeboah, | | | | | | MD [address] | | | | | | [place] | | | | | | [place] [address] | | | | | | [phone] | | | | | | | [...] | | | | | | [place] [address] | | | | | | [phone] | | | | | | | | +--------+ + + + + documented as of this encounter Visit Diagnoses Not on filedocumented in this encounter"
--- OUTSIDE RECORDS SUMMARY | ~2020-02-18 | XMS | Encounter Summary ---
Demographics + + + | Address | [address] | | | [place] [address] | + + + | Home Phone [...] Providers + +------+ + | Care Vp Customer Development Name | Role | Phone | [...] Imaging | | 2019 | | [facility] | DO [address] | | | | | [facility] [address] | [place] [address] | | | | | [address] [place], | [phone] | | | | | [place] [address] | | | | | | [phone] | | | +--------+ + + + [...] | | | | | [place] [address] | | | | | | [phone] | | | | | | | | | | | | Julia Fisher, | | | | | | PT | | +--------+ + + + + | 02/18/ | Appointment | Rehabilitation | Erika Ernst, | | | 2019 | | | DO [address] | | | | | | [place] [address] | | | | | | [phone] | | | | | | | | | | | | Genesis Ayon OT | | +--------+ + + + + | 02/25/ | Office | Primary Care | Erika Ernst, | | | 2019 | Visit | | DO [address] | | | | | | [place] [address] | | | | | | [phone] | | | | | | | [...] | | | | | [place] [address] | | | | | | [phone] | | | | | | | | +--------+ + + + + | 02/27/ | Appointment | Radiology | Dhara, | | | 2019 | | | [address] | | | | | | [address] [place], | | | | | | [place] [address] | | | | | | [phone] | | | | | | | [...] [place] | | | | | | [place] [address] | | | | | | [phone] | | | | | | | [...] [place] | | | | | | [address] | | | | | | [phone] | | | | | | | [...] | | | | | [place] [address] | | | | | | [phone] | | | | | | | | | | | | Azul Yeboah, | | | | | | MD [address] | | | | | | [place] | | | | | | [place] [address] | | | | | | [phone] | | | | | | | [...] | | | | | | [place] [address] | | | | | | [phone] | | | | | | | | +--------+ + + + + documented as of this encounter Visit Diagnoses Not on filedocumented in this encounter"
--- OUTSIDE RECORDS SUMMARY | ~2020-02-18 | XMS | Encounter Summary ---
Demographics + + + | Address | [address] | | | [place] [address] | + + + | Home Phone [...] Team Providers + +------+ + | Care Registered Land Surveyor Name | Role | Phone | + +------+ + | Erika Ernst DO | PCP | | + +------+ + Encounter Details +--------+ + + + + | Date | Type | Department | Care Team | Description | +--------+ + + + + | 09/26/ | Orders Only | [place] [facility] | Veronica Huerta, | | | 2018 | | [facility] | SUPERVISOR HOME [employer]ATION SERVICE | | | | | [facility] | | | | | | 4TH [facility], | | | | | | [place] [address] | | | | | | [phone] | | | +--------+ + + + [...] | | | | | [place] [address] | | | | | | [phone] | | | | | | | | | | | | Julia Fisher, | | | | | | PT | | +--------+ + + + + | 02/18/ | Appointment | Rehabilitation | Erika rEnst, | | | 2019 | | | DO [address] | | | | | | [place] [address] | | | | | | [phone] | | | | | | | | | | | | Genesis Ayon OT | | +--------+ + + + + | 02/25/ | Office | Primary Care | Erika Ernst, | | | 2019 | Visit | | [address] [place] [address] | | | | | | [place] [address] | | | | | | [phone] | | | | | | | [...] | | | | | [place] [address] | | | | | | [phone] | | | | | | | | +--------+ + + + + | 02/27/ | Appointment | Radiology | Dhara, | | | 2019 | | | [address] | | | | | | [address] [place], | | | | | | [place] [address] | | | | | | [phone] | | | | | | | | +--------+ + + + + | 03/04/ | Appointment | Rehabilitation | Genesis Ayon OT | | 2019 | | | | | +--------+ + + + + | 03/09/ | Office | Orthopedic Surgery | Jeffrey Gandhi, | | | 2019 | Visit | | [place] [address] | | | | | | [place] [address] | | | | | | [phone] | | | | | | | [...] [place] | | | | | | [address] | | | | | | [phone] | | | | | | | [...] | | | | | [place] [address] | | | | | | [phone] | | | | | | | | | | | | Azul Yeboah, | | | | | | [address] | | | | | | [place] | | | | | | [place] [address] | | | | | | [phone] | | | | | | | [...] | | | | | | [place] [address] | | | | | | [phone] | | | | | | | | +--------+ + + + + documented as of this encounter Visit Diagnoses Not on filedocumented in this encounter"
--- OUTSIDE RECORDS SUMMARY | ~2020-02-18 | XMS | Encounter Summary ---
Demographics + + + | Address | [address] | | | [place] [address] | + + + | Home Phone [...] Providers + +------+ + | Care Supervisor Acoustical Tile Carpenters Name | Role | Phone | + +------+ + PCP | Unavailable | + +------+ + Encounter Details +--------+ + + + + | Date | Type | Department | Care Team | Description | +--------+ + + + + | 10/26/ | [facility] | Spenser Roberts NP | | | 2015 | Encounter | [facility] | [address], | | | | | [facility] [address] | [place] [address] | | | | | 4TH [facility], | [phone] | | | | | [place] [address] | | | | | | [phone] | | | +--------+ + + + [...] | | | | | [place] [address] | | | | | | [phone] | | | | | | | | | | | | Julia Fisher, | | | | | | PT | | +--------+ + + + + | 02/18/ | Appointment | Rehabilitation | Erika Ernst, | | | 2019 | | | DO [address] | | | | | | [place] [address] | | | | | | [phone] | | | | | | | | | | | | Genesis Ayon OT | | +--------+ + + + + | 02/25/ | Office | Primary Care | Erika Ernst, | | | 2019 | Visit | | DO [address] | | | | | | [place] [address] | | | | | | [phone] | | | | | | | [...] | | | | | [place] [address] | | | | | | [phone] | | | | | | | | +--------+ + + + + | 02/27/ | Appointment | Radiology | Dhara, | | | 2019 | | | [address] | | | | | | 4TH [facility], | | | | | | [place] [address] | | | | | | [phone] | | | | | | | | +--------+ + + + + | 03/04/ | Appointment | Rehabilitation | Genesis Ayon OT | | | 2019 | | | | | +--------+ + + + + | 03/09/ | Office | Orthopedic Surgery | Jeffrey Gandhi, | | 2019 | Visit | | [address] | | | | | | [place] [address] | | | | | | [phone] | | | | | | | [...] [place] | | | | | | [address] | | | | | | [phone] | | | | | | | [...] | | | | | [place] [address] | | | | | | [phone] | | | | | | | | | | | | Azul Yeboah, | | | | | | MD [address] | | | | | | [place] | | | | | | [place] [address] | | | | | | [phone] | | | | | | | [...] | | | | | | [place] [address] | | | | | | [phone] | | | | | | | | +--------+ + + + + documented as of this encounter Visit Diagnoses Not on filedocumented in this encounter"
--- OUTSIDE RECORDS SUMMARY | ~2020-02-18 | XMS | Encounter Summary ---
Demographics + + + | Address | [address] | | | [place] [address] | + + + | Home Phone [...] Providers + +------+ + | Care Dispatcher Street Department Name | Role | Phone | + +------+ + | Erika Ernst DO | PCP | | + +------+ + Encounter Details +--------+ + + + + | Date | Type | Department | Care Team | Description | +--------+ + + + + | 01/07/ | Abstract | [place] [facility] | Erika Ernst, | | | 2018 | | [address] | | | | | [facility] [address] | [place] [address] | | | | | [address] [facility] [place], | [phone] | | | | | [place] [address] | | | | | | [phone] | | | +--------+ + + + [...] | | | | | [place] [address] | | | | | | [phone] | | | | | | | | | | | | Julia Fisher, | | | | | | PT | | +--------+ + + + + | 02/18/ | Appointment | Rehabilitation | Erika Ernst, | | | 2019 | | | DO [address] | | | | | | [place] [address] | | | | | | [phone] | | | | | | | | | | | | Genesis Ayon, SUSAN | | +--------+ + + + + | 02/25/ | Office | Primary Care | Erika Ernst, | | | 2019 | Visit | | DO [address] [place] [address] | | | | | | [place] [address] | | | | | | [phone] | | | | | | | [...] | | | | | [place] [address] | | | | | | [phone] | | | | | | | | +--------+ + + + + | 02/27/ | Appointment | Radiology | Dhara, | | 2019 | | | [address] | | | | | | [address] [place], | | | | | | [place] [address] | | | | | | [phone] | | | | | | | | +--------+ + + + + | 03/04/ | Appointment | Rehabilitation | Genesis Ayon OT | | 2019 | | | | | +--------+ + + + + | 03/09/ | Office | Orthopedic Surgery | Jeffrey Gandhi, | | | 2019 | Visit | | [address] | | | | | | [place] [address] | | | | | | [phone] | | | | | | | [...] [place] | | | | | | [address] | | | | | | [phone] | | | | | | | [...] | | | | | [place] [address] | | | | | | [phone] | | | | | | | | | | | | Azul Yeboah, | | | | | | MD [address] | | | | | | [place] | | | | | | [place] [address] | | | | | | [phone] | | | | | | | [...] | | | | | | [place] [address] | | | | | | [phone] | | | | | | | | +--------+ + + + + documented as of this encounter Visit Diagnoses Not on filedocumented in this encounter"
--- OUTSIDE RECORDS SUMMARY | ~2020-02-18 | XMS | Encounter Summary ---
Demographics + + + | Address | [address] | | | [place] [address] | + + + | Home Phone [...] Providers + +------+ + | Care Terrazzo Supervisor Name | Role | Phone | [...] | [facility] [address] | [place] [address] | | | | | [address] [place], | [phone] | | | | | [place] [address] | | | | | | [phone] | | | +--------+ + + + [...] | | | | | [place] [address] | | | | | | [phone] | | | | | | | | | | | | Julia Fihser, | | | | | | PT | | +--------+ + + + + | 02/18/ | Appointment | Rehabilitation | Erika Ernst, | | | 2019 | | | DO [address] | | | | | | [place] [address] | | | | | | [phone] | | | | | | | | | | | | Genesis Ayon, OT | | +--------+ + + + + | 02/25/ | Office | Primary Care | Erika Ernst, | | | 2019 | Visit | | DO [address] | | | | | | [place] [address] | | | | | | [phone] | | | | | | | [...] | | | | | [place] [address] | | | | | | [phone] | | | | | | | | +--------+ + + + + | 02/27/ | Appointment | Radiology | Dhara, | | | 2019 | | | [address] | | | | | | [address] [place], | | | | | | [place] [address] | | | | | | [phone] | | | | | | | [...] [place] | | | | | | [place] [address] | | | | | | [phone] | | | | | | | [...] [place] | | | | | | [address] | | | | | | [phone] | | | | | | | [...] | | | | | [place] [address] | | | | | | [phone] | | | | | | | | | | | | Azul Yeboah, | | | | | | [address] | | | | | | [place] | | | | | | [place] [address] | | | | | | [phone] | | | | | | | [...] | | | | | | [place] [address] | | | | | | [phone] | | | | | | | | +--------+ + + + + documented as of this encounter Visit Diagnoses Not on filedocumented in this encounter"
--- OUTSIDE RECORDS SUMMARY | ~2020-02-18 | XMS | Encounter Summary ---
Demographics + + + | Address | [address] | | | [place] [address] | + + + | Home Phone [...] Providers + +------+ + | Care Warp Spooler Name | Role | Phone | + [...] [place] | | | | | | [address] | | | | | | [phone] | | | +--------+ + + + [...] | 03/19/20 | | | (VITAMIN D3) 42399 | mouth Once a week | tablet [...] | | 2020 | | | DO [address] [place] [address] | | | | | | [place] [address] | | | | | | [phone] | | | | | | | | | | | | Julia Fisher, | | | | | | PT | | +--------+ + + + + | 02/18/ | Appointment | Rehabilitation | Erika Ernst, | | | 2019 | | | DO [address] | | | | | | [place] [address] | | | | | | [phone] | | | | | | | | | | | | Genesis Ayon OT | | +--------+ + + + + | 02/25/ | Office | Primary Care | Erika Ernst, | | | 2019 | Visit | | DO [address] | | | | | | [place] [address] | | | | | | [phone] | | | | | | | [...] | | | | | [place] [address] | | | | | | [phone] | | | | | | | | +--------+ + + + + | 02/27/ | Appointment | Radiology | Dhara, | | | 2019 | | | [address] | | | | | | [address] [place], | | | | | | [place] [address] | | | | | | [phone] | | | | | | | [...] | | | | | [place] [address] | | | | | | [phone] | | | | | | | [...] [place] | | | | | | [address] | | | | | | [phone] | | | | | | | [...] | | | | | [place] [address] | | | | | | [phone] | | | | | | | | | | | | Azul Yeboah, | | | | | | MD [address] | | | | | | [place] | | | | | | [place] [address] | | | | | | [phone] | | | | | | | [...] | | | | | | [place] [address] | | | | | | [phone] | | | | | | | | +--------+ + + + + documented as of this encounter Visit Diagnoses Not on filedocumented in this encounter"
--- OUTSIDE RECORDS SUMMARY | ~2020-02-18 | XMS | Encounter Summary ---
Demographics + + + | Address | [address] | | | [place] [address] | + + + | Home Phone [...] Providers + +------+ + | Care Weight Training Instructor Name | Role | Phone | [...] | MRI Wrist | DR [address]EDRAZA | [address] | | | | | Right wo | [place], [place] | Phone: | | | | | Contrast | [address] | [phone] | | | | | | Phone: | Fax: | | | | | | [phone] | [phone] | | | | | | Fax: | | | | | | | [phone] | | +--------+--------+ + + + + [...] | MRI Wrist | DR PEDRAZA | [address] | | | | | Right wo | [place], [place] | Phone: | | | | | Contrast | [address] | [phone] | | | | | | Phone: | Fax: | | | | | | [phone] | [phone] | | | | | | Fax: | | | | | | | [phone] | | +--------+--------+ + + + + [...] | | [place] | [place] [address] | | | | | [address] | [phone] | | | | | [phone] | | | +--------+ + + + [...] | 11/26/19 | | | (VITAMIN D3) 92690 | mouth Once a week | tablet [...] | | | | | [place] [address] | | | | | | [phone] | | | | | | | | | | | | Julia Fisher, | | | | | | PT | | +--------+ + + + + | 02/18/ | Appointment | Rehabilitation | Erika Ernst, | | | 2019 | | | DO [address] | | | | | | [place] [address] | | | | | | [phone] | | | | | | | | | | | | Genessi Ayon OT | | +--------+ + + + + | 02/25/ | Office | Primary Care | Erika Ernst, | | | 2019 | Visit | | DO [address] | | | | | | [place] [address] | | | | | | [phone] | | | | | | | [...] | | | | | [place] [address] | | | | | | [phone] | | | | | | | | +--------+ + + + + | 02/27/ | Appointment | Radiology | Dhara, | | | 2019 | | | [address] | | | | | | [address] [facility] [place], | | | | | | [place] [address] | | | | | | [phone] | | | | | | | [...] | | | | [place] [address] | | | | | | [phone] | | | | | | | [...] [place] | | | | | | [address] | | | | | | [phone] | | | | | | | [...] | | | | | [place] [address] | | | | | | [phone] | | | | | | | | | | | | Azul Yeboah, | | | | | | MD [address] | | | | | | [place] | | | | | | [place] [address] | | | | | | [phone] | | | | | | | [...] | | | | | | [place] [address] | | | | | | [phone] | | | | | | | [...]
--- OUTSIDE RECORDS SUMMARY | ~2020-02-18 | XMS | Encounter Summary ---
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 | Role | Phone | [...] Pressure | | 2019 | | [facility] | DO [address] | | | | | MEDICAL CLIN[facility] [address] | [place] [address] | | | | | [address] [place], | [phone] | | | | | [place] [address] | | | | | | [phone] | | | +--------+ + + + [...] | | 2019 | | | DO [place] | | | | | | [place] [address] | | | | | | [phone] | | | | | | | | | | | | Julia Fisher, | | | | | | PT | | +--------+ + + + + | 02/18/ | Appointment | Rehabilitation | Eriak Ernst, | | | 2019 | | | DO [address] | | | | | | [place] [address] | | | | | | [phone] | | | | | | | | | | | | Genesis Ayon OT | | +--------+ + + + + | 02/25/ | Office | Primary Care | Erika Ernst, | | | 2019 | Visit | | DO [address] | | | | | | [place] [address] | | | | | | [phone] | | | | | | | [...] | | | | | [place] [address] | | | | | | [phone] | | | | | | | | +--------+ + + + + | 02/27/ | Appointment | Radiology | Dhara, | | | 2019 | | | [address] | | | | | | 4TH [facility], | | | | | | [place] [address] | | | | | | [phone] | | | | | | | [...] [place] | | | | | | [place] [address] | | | | | | [phone] | | | | | | | [...] [place] | | | | | | [address] | | | | | | [phone] | | | | | | | [...] | | | | | [place] [address] | | | | | | [phone] | | | | | | | | | | | | Azul Yeboah, | | | | | | MD [address] | | | | | | [place] | | | | | | [place] [address] | | | | | | [phone] | | | | | | | [...] | | | | | | [place] [address] | | | | | | [phone] | | | | | | | | +--------+ + + + + documented as of this encounter Visit Diagnoses Not on filedocumented in this encounter"
--- OUTSIDE RECORDS SUMMARY | ~2020-02-18 | XMS | Encounter Summary ---
Demographics + + + | Address | [address] | | | [place] [address] | + + + | Home Phone [...] Providers + +------+ + | Care Oil Processing Technician Name | Role | Phone | [...] Order | | 2019 | | [facility] | DO [address] | | | | | MEDICAL CLIN[facility] [address] | [place] [address] | | | | | [address] [place], | [phone] | | | | | [place] [address] | | | | | | [phone] | | | +--------+ + + + [...] | | | | | [place] [address] | | | | | | [phone] | | | | | | | [...] [address] | | | | | | [phone] | | | | | | | | | | | | Genesis Ayon OT | | +--------+ + + + + | 02/25/ | Office | Primary Care | Erika Ernst, | | | 2019 | Visit | | DO [address] | | | | | | [place] [address] | | | | | | [phone] | | | | | | | [...] | | | | | [place] [address] | | | | | | [phone] | | | | | | | | +--------+ + + + + | 02/27/ | Appointment | Radiology | Dhara, | | | 2019 | | | [address] | | | | | | 4TH [facility], | | | | | | [place] [address] | | | | | | [phone] | | | | | | | | +--------+ + + + + | 03/04/ | Appointment | Rehabilitation | Genesis Ayon OT | | | 2019 | | | | | +--------+ + + + + | 03/09/ | Office | Orthopedic Surgery | Jeffrey Gandhi, | | | 2019 | Visit | | [place] [address] | | | | | | [place] [address] | | | | | | [phone] | | | | | | | [...] [place] | | | | | | [address] | | | | | | [phone] | | | | | | | [...] | | | | | [place] [address] | | | | | | [phone] | | | | | | | | | | | | Azul Yeboah, | | | | | | MD [address] | | | | | | [place] | | | | | | [place] [address] | | | | | | [phone] | | | | | | | [...] | | | | | | [place] [address] | | | | | | [phone] | | | | | | | | +--------+ + + + + documented as of this encounter Visit Diagnoses Not on filedocumented in this encounter"
--- OUTSIDE RECORDS SUMMARY | ~2020-02-18 | XMS | Encounter Summary ---
Demographics + + + | Address | [address] | | | [place] [address] | + + + | Home Phone [...] + + + + | 05/03/ | [facility] | [facility] | Erika Ernst, | | | 2017 | Encounter | [facility] | DO [address] | | | | | MEDICAL CLIN[facility] [address] | [place] [address] | | | | | [address] [place], | [phone] | | | | | [place] [address] | | | | | | [phone] | | | +--------+ + + + [...] | | | | | [place] [address] | | | | | | [phone] | | | | | | | | | | | | Julia Fisher, | | | | | | PT | | +--------+ + + + + | 02/18/ | Appointment | Rehabilitation | Erika Ernst, | | | 2019 | | | DO [address] | | | | | | [place] [address] | | | | | | [phone] | | | | | | | | | | | | Genesis Ayon, OT | | +--------+ + + + + | 02/25/ | Office | Primary Care | Erika Ernst, | | | 2019 | Visit | | DO [address] | | | | | | [place] [address] | | | | | | [phone] | | | | | | | [...] | | | | | [place] [address] | | | | | | [phone] | | | | | | | | +--------+ + + + + | 02/27/ | Appointment | Radiology | Dhara, | | | 2019 | | | [address] | | | | | | [facility] [facility], | | | | | | [place] [address] | | | | | | [phone] | | | | | | | | +--------+ + + + + | 03/04/ | Appointment | Rehabilitation | Genesis Ayon OT | | 2019 | | | | | +--------+ + + + + | 03/09/ | Office | Orthopedic Surgery | Jeffrey Gandhi, | | 2019 | Visit | | [address] [facility] [facility] | | | | | | [place] [address] | | | | | | [phone] | | | | | | | [...] [place] | | | | | | [address] | | | | | | [phone] | | | | | | | [...] | | | | | [place] [address] | | | | | | [phone] | | | | | | | | | | | | Azul Yeboah, | | | | | | [address] | | | | | | [address] [place] | | | | | | [place] [address] | | | | | | [phone] | | | | | | | | +--------+ + + + + | 07/08/ | Appointment | Nutrition | Janel Webster | | | 2019 | | | [facility] | | +--------+ + + + + | 05/21/ | Office | Neurology | Dhara, | | | 2019 | Visit | | [address] | | | | | | [address] [place], | | | | | | [place] [address] | | | | | | [phone] | | | | | | | | +--------+ + + + + documented as of this encounter Visit Diagnoses Not on filedocumented in this encounter"
--- OUTSIDE RECORDS SUMMARY | ~2020-02-18 | XMS | Encounter Summary ---
Demographics + + + | Address | [address] | | | [place] [address] | + + + | Home Phone [...] Team Providers + +------+ + | Care Shipping And Receiving Specialist Name | Role | Phone | [...] | | | of left | [place] [address] | [place] [address] | | | | | ankle, | Phone: | Phone: | | | | | initial | [phone] | [phone] | | | | | encounter | Fax: | Fax: | | | | | Procedures | [phone] | [phone] | | | | | PT EVAL [...] [address] | [place] [address] | ligament of left | | | | [place], [place] | [phone] | ankle, initial | | | | [address] | | encounter | | | | [phone] | Leila Maldonado, PT | | +--------+ [...] might be different fr om the original. [facility] PT [address] [place] [address] Physical Therapy Daily Treatment Note Date: 07/24/2018 [...] in favor of SL heel raise with WILDLIFE CONTROL OPERATOR. ONGOING: SLS on even surface 3x30 [...] 2: NMR: SL stance on bosu with WILDLIFE CONTROL OPERATOR 3x15 sec. SL stance on ground no WILDLIFE CONTROL OPERATOR 3x2 0 sec. Step ups to foam [...] | | | | | [place] [address] | | | | | | [phone] | | | | | | | | | | | | Julia Fisher, | | | | | | PT | | +--------+ + + + + | 02/18/ | Appointment | Rehabilitation | Erika Ernst, | | | 2019 | | | DO [address] | | | | | | [place] [address] | | | | | | [phone] | | | | | | | | | | | | Genesis Ayon OT | | +--------+ + + + + | 02/25/ | Office | Primary Care | Erika Ernst, | | | 2019 | Visit | | DO [address] | | | | | | [place] [address] | | | | | | [phone] | | | | | | | [...] | | | | | [place] [address] | | | | | | [phone] | | | | | | | | +--------+ + + + + | 02/27/ | Appointment | Radiology | Dhara, | | | 2019 | | | DWAINE Ross [address] [place], | | | | | | [place] [address] | | | | | | [phone] | | | | | | | | +--------+ + + + + | 03/04/ | Appointment | Rehabilitation | Genesis Ayon OT | | | 2019 | | | | | +--------+ + + + + | 03/09/ | Office | Orthopedic Surgery | Jeffrey Gandhi, | | 2019 | Visit | | [place] [address] | | | | | | [place] [address] | | | | | | [phone] | | | | | | | [...] [place] | | | | | | [address] | | | | | | [phone] | | | | | | | [...] | | | | | [place] [address] | | | | | | [phone] | | | | | | | | | | | | Azul Yeboah, | | | | | | MD [address] | | | | | | [place] | | | | | | [place] [address] | | | | | | [phone] | | | | | | | [...] | | | | | | [place] [address] | | | | | | [phone] | | | | | | | | +--------+ + + + + documented as of this encounter Visit Diagnoses + + | Diagnosis | + + | Sprain of calcaneofibular ligament of left ankle, initial encounter | + + documented in this encounter
--- OUTSIDE RECORDS SUMMARY | ~2020-02-18 | XMS | Encounter Summary ---
Demographics + + + | Address | [address] | | | [place] [address] | + + + | Home Phone [...] Team Providers + +------+ + | Care Wrist Hemmer Name | Role | Phone | [...] | | | 2018 | Support | [facility] | [facility] [address] [facility] | | | | | MEDICAL CLIN[facility] [address] | [place] [address] | | | | | [address] [place], | [phone] | | | | | [place] [address] | | | | | | [phone] | | | +--------+ + + + [...] | | | | | [place] [address] | | | | | | [phone] | | | | | | | | | | | | Julia Fisher, | | | | | | PT | | +--------+ + + + + | 02/18/ | Appointment | Rehabilitation | Erika Ernst, | | | 2019 | | | DO [address] | | | | | | [place] [address] | | | | | | [phone] | | | | | | | | | | | | Genesis Ayon OT | | +--------+ + + + + | 02/25/ | Office | Primary Care | Erika Ernst, | | | 2019 | Visit | | DO [address] | | | | | | [place] [address] | | | | | | [phone] | | | | | | | [...] | | | | | [place] [address] | | | | | | [phone] | | | | | | | | +--------+ + + + + | 02/27/ | Appointment | Radiology | Dhara, | | | 2019 | | | DWAINE Ross [address] [place], | | | | | | [place] [address] | | | | | | [phone] | | | | | | | | +--------+ + + + + | 03/04/ | Appointment | Rehabilitation | Genesis Ayon OT | | | 2019 | | | | | +--------+ + + + + | 03/09/ | Office | Orthopedic Surgery | Jeffrey Gandhi, | | | 2019 | Visit | | [place] [address] | | | | | | [place] [address] | | | | | | [phone] | | | | | | | [...] [place] | | | | | | [address] | | | | | | [phone] | | | | | | | [...] | | | | | [place] [address] | | | | | | [phone] | | | | | | | | | | | | Azul Yeboah, | | | | | | MD [address] | | | | | | [place] | | | | | | [place] [address] | | | | | | [phone] | | | | | | | [...] | | | | | | [place] [address] | | | | | | [phone] | | | | | | | | +--------+ + + + + documented as of this encounter Visit Diagnoses Not on filedocumented in this encounter"
--- OUTSIDE RECORDS SUMMARY | ~2020-02-18 | XMS | Encounter Summary ---
Demographics + + + | Address | [address] | | | [place] [address] | + + + | Home Phone [...] Providers + +------+ + | Care Case Manager Name | Role | Phone [...] | | | right ankle, | [place] [address] | [place] [address] | | | | | subsequent | Phone: | Phone: | | | | | encounter | [phone] | [phone] | | | | | Procedures | Fax: | Fax: | | | | | PT EVAL | [phone] | [phone] | +--------+ + + + + + [...] | [facility]ICAL [facility] [address] | [place] [address] | ankle, subsequent | | | | [address] [place], | [phone] | encounter (Primary | | | | [place] [address] | | Dx); Scratch of | | | | [phone] | | lower leg, right, | | [...] to FU from a ER visit in [place] for a minor scratch on the lateral [...] | | | | | [place] [address] | | | | | | [phone] | | | | | | | | | | | | Julia Fisher, | | | | | | PT | | +--------+ + + + + | 02/18/ | Appointment | Rehabilitation | Erika Ernst, | | | 2019 | | | DO [address] | | | | | | [place] [address] | | | | | | [phone] | | | | | | | | | | | | Genesis Ayon, OT | | +--------+ + + + + | 02/25/ | Office | Primary Care | Erika Ernst, | | | 2019 | Visit | | DO [address] | | | | | | [place] [address] | | | | | | [phone] | | | | | | | [...] | | | | | [place] [address] | | | | | | [phone] | | | | | | | | +--------+ + + + + | 02/27/ | Appointment | Radiology | Dhara, | | | 2019 | | | DWAINE Ross [address] [place], | | | | | | [place] [address] | | | | | | [phone] | | | | | | | | +--------+ + + + + | 03/04/ | Appointment | Rehabilitation | Genesis Ayon OT | | | 2019 | | | | | +--------+ + + + + | 03/09/ | Office | Orthopedic Surgery | Jeffrey Gandhi, | | | 2019 | Visit | | [place] [address] [facility] | | | | | | [place] [address] | | | | | | [phone] | | | | | | | [...] [place] | | | | | | [address] | | | | | | [phone] | | | | | | | [...] | | | | | [place] [address] | | | | | | [phone] | | | | | | | | | | | | Azul Yeboah, | | | | | | MD [address] | | | | | | [place] | | | | | | [place] [address] | | | | | | [phone] | | | | | | | [...] | | | | | | [place] [address] | | | | | | [phone] | | | | | | | [...]
--- OUTSIDE RECORDS SUMMARY | ~2020-02-18 | XMS | Encounter Summary ---
Demographics + + + | Address | [address] | | | [place] [address] | + + + | Home Phone [...] Providers + +------+ + | Care Wood Boatbuilder Name | Role | Phone | + +------+ + PCP | Unavailable | + +------+ + Encounter Details +--------+ + + + + | Date | Type | Department | Care Team | Description | +--------+ + + + + | 10/27/ | [facility] | [facility] | Erika Ernst, | | | 2015 | Encounter | [facility] | DO [address] | | | | | MEDICAL CLIN[facility] [address] | [facility] [place] [address] | | | | | [address] [place], | [phone] | | | | | [place] [address] | | | | | | [phone] | | | +--------+ + + + [...] | | | | | [place] [address] | | | | | | [phone] | | | | | | | | | | | | Julia Fisher, | | | | | | PT | | +--------+ + + + + | 02/18/ | Appointment | Rehabilitation | Erika Ernst, | | | 2019 | | | DO [address] | | | | | | [place] [address] | | | | | | [phone] | | | | | | | | | | | | Genesis Ayon OT | | +--------+ + + + + | 02/25/ | Office | Primary Care | Erika Ernst, | | | 2019 | Visit | | DO [address] | | | | | | [place] [address] | | | | | | [phone] | | | | | | | [...] | | | | | [place] [address] | | | | | | [phone] | | | | | | | | +--------+ + + + + | 02/27/ | Appointment | Radiology | Dhara, | | | 2019 | | | [address] | | | | | | [address]TH [facility], | | | | | | [place] [address] | | | | | | [phone] | | | | | | | [...] CLINIC | | | | | | [place] [address] | | | | | | [phone] | | | | | | | [...] [place] | | | | | | [address] | | | | | | [phone] | | | | | | | [...] | | | | | [place] [address] | | | | | | [phone] | | | | | | | | | | | | Azul Yeboah, | | | | | | MD [address] | | | | | | [place] | | | | | | [place] [address] | | | | | | [phone] | | | | | | | [...] | | | | | | [place] [address] | | | | | | [phone] | | | | | | | | +--------+ + + + + documented as of this encounter Visit Diagnoses Not on filedocumented in this encounter"
--- OUTSIDE RECORDS SUMMARY | ~2020-02-18 | XMS | Encounter Summary ---
Demographics + + + | Address | [address] | | | [place] [address] | + + + | Home Phone [...] Team Providers + +------+ + | Care Salvage Winder Name | Role | Phone | [...] | DR [place], [place] | [place] [address] | | | | | [address] | [phone] | | | | | [phone] | | | +--------+ + + + [...] | | 2019 | | | DO [facility] | | | | | | [place], [place] [address] | | | | | | [phone] | | | | | | | | | | | | Julia Fisher, | | | | | | PT | | +--------+ + + + + | 02/18/ | Appointment | Rehabilitation | Erika Ernst, | | | 2019 | | | DO [address] | | | | | | [place] [address] | | | | | | [phone] | | | | | | | | | | | | Genesis Ayon OT | | +--------+ + + + + | 02/25/ | Office | Primary Care | Erika Ernst, | | | 2019 | Visit | | DO [address] | | | | | | [place] [address] | | | | | | [phone] | | | | | | | [...] | | | | | [place] [address] | | | | | | [phone] | | | | | | | | +--------+ + + + + | 02/27/ | Appointment | Radiology | Dhara, | | | 2019 | | | [address] | | | | | | [address] [place], | | | | | | [place] [address] | | | | | | [phone] | | | | | | | [...] | | | | | [place] [address] | | | | | | [phone] | | | | | | | [...] [place] | | | | | | [address] | | | | | | [phone] | | | | | | | [...] | | | | | [place] [address] | | | | | | [phone] | | | | | | | | | | | | Azul Yeboah, | | | | | | MD [address] | | | | | | [place] | | | | | | [place] [address] | | | | | | [phone] | | | | | | | | +--------+ + + + + | 04/08/ | Appointment | Nutrition | Janel Webster | | | 2019 | | | [address] | | +--------+ + + + + | 05/21/ | Office | Neurology | Dhara, | | | 2019 | Visit | | [address] | | | [address] [place], | | | | | | [place] [address] | | | | | | [phone] | | | | | | | | +--------+ + + + + documented as of this encounter Visit Diagnoses Not on filedocumented in this encounter"
--- OUTSIDE RECORDS SUMMARY | ~2020-02-18 | XMS | Encounter Summary ---
Demographics + + + | Address | [address] | | | [place] [address] | + + + | Home Phone [...] Team Providers + +------+ + | Care Marina Dry Dock Manager Name | Role | Phone | + +------+ + | Erika Ernst DO | PCP | | + +------+ + Reason for Visit + + + | Reason | Comments | + + + | Advice Only | | + + + | Ear Pain | Pt calling again re: still waiting for a call back from [facility] about | | | left ear pain [...] | MEDICAL CLINIC [address] | [place] [address] | again re: still | | | | [address] [place], | [phone] | waiting for a call | | | | [place] [address] | | back from [facility] about | | | | [phone] | | left ear pain) | +--------+ [...] | | | | | [place] [address] | | | | | | [phone] | | | | | | | | | | | | Julia Fisher, | | | | | | PT | | +--------+ + + + + | 02/18/ | Appointment | Rehabilitation | Erika Ernst, | | | 2019 | | | DO [address] | | | | | | [place] [address] | | | | | | [phone] | | | | | | | | | | | | Genesis Ayon OT | | +--------+ + + + + | 02/25/ | Office | Primary Care | Erika Ernst, | | | 2019 | Visit | | DO [address] [place] [address] | | | | | | [place] [address] | | | | | | [phone] | | | | | | | [...] | | | | | [place] [address] | | | | | | [phone] | | | | | | | | +--------+ + + + + | 02/27/ | Appointment | Radiology | Dhaar, | | | 2019 | | | [address]WA[address] | | | [address] [place], | | | | | | [place] [address] | | | | | | [phone] | | | | | | | [...] | | | | | | [place] [address] | | | | | | [phone] | | | | | | | [...] [place] | | | | | | [address] | | | | | | [phone] | | | | | | | [...] | | | | | [place] [address] | | | | | | [phone] | | | | | | | | | | | | Azul Yeboah, | | | | | | [address] | | | | | | [place] | | | | | | [place] [address] | | | | | | [phone] | | | | | | | [...] | | | | | | [place] [address] | | | | | | [phone] | | | | | | | | +--------+ + + + + documented as of this encounter Visit Diagnoses Not on filedocumented in this encounter"
[~2020-02-18 22:02] MED LIST changes: +ALBUTEROL2.5 MG/3 M INH; +CEFDINIR300 MG PO; +CHILDREN'S15 MG/1 ML PO; +CIPRO500 MG PO; +COMBIVENT RESPIM4 GM INH; +DULERA 200 MCG/13 GM INH; +GUAIFENESIN-CO473 ML PO; +LEVOTHYROXINE50 MCG PO; +MECLIZINE HCL12.5 MG PO; +MINIPRESS1 MG PO; +MONTELUKAST SOD10 MG PO; +ONDANSETRON ODT4 MG PO; +ULTRAM50 MG PO
--- OUTSIDE RECORDS SUMMARY | 2020-02-18 22:06 | XMS ---
PreManage Notification: ZENY GRULLON Security Small Engine Trainer Events No recent Security Events currently on file CRITERIA MET - [facility] C[facility] PROVIDERS BETSY BONILLA [facility]: Geriatric Medicine Current PHONE: Unknown Eloina Baxter [facility] Rubio PHONE: [phone] Alhaji has no Care Guidelines for this patient. Neeraj VISIT COUNT ([address] [place] [address] [facility] [place] TOTAL 11 NOTE: Visits indicate total known visits. ED/UCC VISIT TRACKING (12 MO.) 02/18/2020 22:03 [facility] [place] TYPE: Emergency COMPLAINT: - SHOOTING PAIN IN RIGHT HAND 01/31/2020 15:50 [facility] [place] TYPE: Urgent Care DIAGNOSES: - Obstructive sleep apnea (adult) (pediatric) - Unspecified asthma, uncomplicated - Carpal tunnel syndrome, right upper limb - Referral (Follow up) 12/26/2019 08:46 [facility] [place] TYPE: Emergency DIAGNOSES: - Head Injury Without Loc - possible concussion - Contusion of eyeball and orbital tissues, left eye, initial e - Headache 09/30/2019 00:48 [facility] Yen LillianCarmen Haskins [place] TYPE: Emergency COMPLAINT: - LEFT LEG LAC5 DIAGNOSES: - Laceration without foreign body, right lower leg, initial enc 09/09/2019 12:54 [facility] [place] TYPE: Emergency DIAGNOSES: - difficulty breathing - Other diseases of pharynx - Shortness of Breath 08/22/2019 17:28 [facility] [place] TYPE: Emergency DIAGNOSES: - Vomiting, unspecified - Nausea, post migraine - Acute cystitis without hematuria - Nausea 08/15/2019 20:31 [facility] DIAGNOSES: 0. WRIST PAIN 06/13/2019 17:15 [facility] TYPE: Emergency DIAGNOSES: - Hand Injury - Contusion of right hand, initial encounter 05/10/2019 22:29 [facility] TYPE: Emergency DIAGNOSES: - Ankle Injury - left ankle and right wrist pain - Pain in right wrist - Pain in left ankle and joints of left foot - Wrist Injury 04/26/2019 09:41 [facility] [place] TYPE: Emergency DIAGNOSES: - Cast came off - Encounter for other orthopedic aftercare - Cast Problem 04/21/2019 16:30 [facility] [place] TYPE: Emergency DIAGNOSES: - Anxiety disorder, unspecified - Shortness of Breath - Unspecified asthma, uncomplicated - Other seasonal allergic rhinitis 04/07/2019 15:46 [facility] TYPE: Emergency DIAGNOSES: 0. INCISION WET NEED REBANDAGED INPATIENT VISIT TRACKING (12 MO.) No inpatient visits to display in this time frame [email or web address]
[2020-02-18] MEDS ORDERED: AZITHROMYCIN250 MG PO (23:29)
[2020-02-18] MEDS ORDERED: BENZONATATE100 MG PO (23:30)
[2020-02-18] MEDS ORDERED: BUDESONIDE EC3 MG NAS (23:32)
== END 2020-02-19 00:54 | disposition home or self-care (01) ==
LOC: ED 22:02
DX: M25.531 Pain in right wrist (principal); G89.29 Other chronic pain; E03.9 Hypothyroidism, unspecified; J45.909 Unspecified asthma, uncomplicated; I10 Essential (primary) hypertension; Z91.048 Other nonmedicinal substance allergy status; Z91.011 Allergy to milk products; Z88.5 Allergy status to narcotic agent; Z79.899 Other long term (current) drug therapy
CPT/HCPCS: 73110; 99283-25

== ENCOUNTER 2020-12-06 09:05 | Emergency (ER) | payer OTHER ==
[~2020-12-06] VITALS: Ht 177.8 cm; Wt 154.2 kg
[~2020-12-06 09:05] MED LIST changes: +AZITHROMYCIN250 MG PO; +BENZONATATE100 MG PO; +BUDESONIDE EC3 MG NAS
--- OUTSIDE RECORDS SUMMARY | 2020-12-06 09:08 | XMS ---
PreManage Notification: ZENY GRULLON Security Binder Technician Events No recent Security Events currently on file CRITERIA MET - PDM CARE PROVIDERS BETSY BONILLA [facility] Medicine: Geriatric Medicine 02/19/2020-Current PHONE: Unknown Eloina Baxter [facility] Rubio Chan MD PHONE: [phone] Alhaji has no Care Guidelines for this patient. Neeraj VISIT COUNT (12 MO.) 3 Sherwin Knight TOTAL 5 NOTE: Visits indicate total known visits. ED/UCC VISIT TRACKING (12 MO.) 12/06/2020 09:06 [place] TYPE: Emergency COMPLAINT: - POST SURGERY PROBLEMS 05/25/2020 11:06 [place] TYPE: Emergency DIAGNOSES: - Head Injury - Acute post-traumatic headache, not intractable - Headache OUTSIDE 03/04/2020 17:58 [place] TYPE: Emergency DIAGNOSES: - Increased cough/ weird taste - Shortness of Breath - Increased cough/ weird taste OUTSIDE - Pneumonia, unspecified organism 02/18/2020 22:03 CHENCHO [place] TYPE: Emergency COMPLAINT: - SHOOTING PAIN IN RIGHT HAND DIAGNOSES: - Other watermaster (current) drug therapy - Hypothyroidism, unspecified - Essential (primary) hypertension - Allergy status to narcotic agent - Allergy to milk products - Other nonmedicinal substance allergy status - Pain in right wrist - Unspecified asthma, uncomplicated - Other chronic pain 12/26/2019 08:46 [place] TYPE: Emergency DIAGNOSES: - Head Injury Without Loc - possible concussion - Contusion of eyeball and orbital tissues, left eye, initial encounter - Headache INPATIENT VISIT TRACKING (12 MO.) No inpatient visits to display in this time frame [email or web address]
[2020-12-06] MEDS ORDERED: SYMBICORT 16010.2 GM INH (09:26)
[2020-12-06] MEDS ORDERED: NORVASC5 MG PO (09:26)
[2020-12-06] MEDS ORDERED: GABAPENTIN300 MG PO (10:51)
[2020-12-06] MEDS ORDERED: ELIQUIS5 MG PO (10:51)
== END 2020-12-06 11:50 | disposition home or self-care (01) ==
LOC: ED 09:05
DX: I82.4Z2 Acute embolism and thrombosis of unspecified deep veins of left distal lower extremity (principal); E03.9 Hypothyroidism, unspecified; I10 Essential (primary) hypertension; Z88.5 Allergy status to narcotic agent; Z88.8 Allergy status to other drugs, medicaments and biological substances; Z91.011 Allergy to milk products; Z91.048 Other nonmedicinal substance allergy status; Z79.899 Other long term (current) drug therapy
CPT/HCPCS: 71045; 80053; 84703; 85025; 85379; 93971; 96374; 99284-25; J1885; J7030

== ENCOUNTER 2023-05-25 16:54 | Emergency (ER) | payer OTHER ==
[~2023-05-25] VITALS: Ht 177.8 cm; Wt 187.7 kg
[~2023-05-25 16:54] MED LIST changes: +ELIQUIS5 MG PO; +GABAPENTIN300 MG PO; +NORVASC5 MG PO; +SYMBICORT 16010.2 GM INH
--- OUTSIDE RECORDS SUMMARY | 2023-05-25 16:56 | XMS ---
PreManage Notification: ZENY GRULLON Security Filtering Machine Tender Helper Events No recent Security Events currently on file CRITERIA MET - [facility] - [facility] - 2 Visits in 30 Days CARE PROVIDERS BETSY BONILLA Family Medicine: Geriatric Medicine 02/19/2020-Current PHONE: Unknown KYLAH ROLLINS Nurse Practitioner: Family Current PHONE: [phone] RAIN MOREIRA [facility] Current PHONE: Unknown Alhaji has no Care Guidelines for this patient. E.Sin VISIT COUNT (12 MO.) Mari Knight TOTAL 9 NOTE: Visits indicate total known visits. ED/UCC VISIT TRACKING (12 MO.) 05/25/2023 16:54 [place] TYPE: Emergency COMPLAINT: - RT LEG SWELLING 05/22/2023 00:09 [place] TYPE: Emergency DIAGNOSES: - Shortness of breath - difficulty breathing - Shortness of Breath 05/08/2023 23:51 [place] TYPE: Emergency DIAGNOSES: - Unspecified abdominal pain - Emesis - pelvic pain 04/14/2023 18:51 [place] TYPE: Emergency DIAGNOSES: - Bilious vomiting - Migraine with aura, intractable, without status migrainosus - Headache (Adult - Recurrent Or Known Dx Migraines) - Headache; Emesis 10/04/2022 03:55 [place] TYPE: Emergency DIAGNOSES: - Acute suppurative otitis media with spontaneous rupture of ear drum, right ear - Ear Pain - Otalgia 10/01/2022 16:20 [place] TYPE: Emergency DIAGNOSES: - Otitis media, unspecified, right ear - Ear Pain - Otalgia 09/24/2022 22:41 [place] TYPE: Emergency DIAGNOSES: - Moderate persistent asthma with (acute) exacerbation - difficulty breathing - Shortness of Breath 08/19/2022 16:44 [place] TYPE: Emergency DIAGNOSES: - Recurrent dislocation of patella, left knee - Knee Injury 06/09/2022 20:47 [place] TYPE: Emergency DIAGNOSES: - Acute upper respiratory infection, unspecified - Shortness of Breath - throat/ lungs burning INPATIENT VISIT TRACKING (12 MO.) No inpatient visits to display in this time frame [email or web address]
[2023-05-25] MEDS ORDERED: LOSARTAN POTASS25 MG PO (17:05)
[2023-05-25] MEDS ORDERED: TEZSPIRE210 MG/1.1 SUB-Q (17:07)
[2023-05-25] MEDS ORDERED: EMGALITY120 MG/1 M SUB-Q (17:07)
[2023-05-25] MEDS ORDERED: UBRELVY100 MG PO (17:07)
[2023-05-25 18:33] VITALS: BP 141/101
== END 2023-05-25 18:34 | disposition home or self-care (01) ==
LOC: ED 16:54
DX: M79.661 Pain in right lower leg (principal); Z91.011 Allergy to milk products; Z91.010 Allergy to peanuts; Z91.09 Other allergy status, other than to drugs and biological substances; Z79.01 Long term (current) use of anticoagulants; Z79.899 Other long term (current) drug therapy; Z79.890 Hormone replacement therapy; J45.909 Unspecified asthma, uncomplicated; I10 Essential (primary) hypertension
CPT/HCPCS: 93971; 99283-25